=== PATIENT | female | born 1960 | race Caucasian/White ===

== ENCOUNTER → 2017-11-07 12:04 | Outpatient (CLI) | payer MEDICARE, SELFPAY ==
[2017-11-07 14:45] LABS: ALB/GLOB Ratio 0.8 RATIO (0.9-2.4); AST(SGOT) 17 U/L (15-37); Alanine Aminotransfer ALT/SGPT 25 U/L (13-56); Albumin, Serum 3.4 g/dL (3.2-5.0); Alkaline Phosphatase 152 U/L (45-117); Anion Gap 9 (5-15); BUN 17 mg/dL (7-18); BUN/Creat Ratio 27.5 RATIO (10-20); CRP 4.97 mg/L (0.0-3.0); Calcium,Total 8.8 mg/dL (8.5-10.1); Chloride 106 mmol/L (98-107); Creatinine, Serum 0.62 mg/dL (0.55-1.02); EST Glomerular Filtration Rate 105 mL/min (>60); Est Glom Filt Rate - Afr Amer 128 mL/min (>60); Globulin 4.2 g/dL (2.2-4.2); Glucose 91 mg/dL (74-106); Potassium 3.7 mmol/L (3.5-5.1); Protein, Total 7.6 g/dL (6.4-8.2); Rheumatoid Factor < 10.0 IU/mL (<15); Sodium Level 140 mmol/L (136-145)
[2017-11-07 15:40] LABS: Absolute Lymphocyte Count 1.47 X10^3/ul (0.83-4.51); Absolute Neutrophil Count 6.6 X10^3/uL (2.0-7.7); Basophil# 0.04 X10^3/uL; Basophil% 0.4 % (0-1); Eosinophil# 0.04 X10^3/uL; Eosinophils% 0.4 % (0-5); Hematocrit 41.2 % (37-47); Hemoglobin 13.2 g/dl (12.0-15.0); Lymphocyte # 1.47 X10^3/ul (4.0); Lymphocyte % 16.5 % (19-41); Mean Corpuscular Hgb 28.6 pg (27.0-32.0); Mean Corpuscular Volume 89.4 fL (81-99); Mean Platelet Vol. 10.7 fl (6.2-12.0); Monocyte# 0.71 X10^3/uL; Neutrophil # 6.64 X10^3/uL (2.7-7.7); Neutrophil % 74.5 % (47-70); Platelet Count 262 K/mm3 (150-450); RBC Distribution Width CV 14.8 % (11.6-14.6); RBC Distribution Width SD 48.1 fl (35.1-43.9); Red Blood Count 4.61 M/mm3 (4.2-5.4); White Blood Count 8.9 K/mm3 (4.4-11.0)
[2017-11-07 16:00] LABS: POSITIVE COUNT NO; POSITIVE DIFFERENTIAL NO; POSITIVE MORPHOLOGY NO
[2017-11-07 16:33] LABS: Erythrocyte Sedimentation Rate 32 mm/hr (0-30)
[2017-11-09 07:20] LABS: CCP IgG Antibodies 6 units (0-19); HEPATITIS B SURFACE AG Negative (Negative); Hep B Surface Antibodies Non Reactive (.); Hep C Antibodies 0.1 s/co ratio (0.0-0.9)
== END ==
PROVIDERS: Family Provider Nurse Practitioner Family; PCP Nurse Practitioner Family; Visit Provider Internal Medicine Rheumatology
DX: M06.09 Rheumatoid arthritis without rheumatoid factor, multiple sites (principal); M17.0 Bilateral primary osteoarthritis of knee; M21.40 Flat foot [pes planus] (acquired), unspecified foot; G90.529 Complex regional pain syndrome I of unspecified lower limb; I10 Essential (primary) hypertension; G47.33 Obstructive sleep apnea (adult) (pediatric); J45.909 Unspecified asthma, uncomplicated; M79.7 Fibromyalgia; F90.0 Attention-deficit hyperactivity disorder, predominantly inattentive type; Z79.899 Other long term (current) drug therapy
CPT/HCPCS: 36415; 80053; 85025; 85652; 86140; 86200; 86431; 86706; 86803; 87340

== ENCOUNTER → 2017-11-19 15:06 | Outpatient (CLI) | payer MEDICARE, SELFPAY ==
--- NOTE | 2017-11-19 15:11 | RAD_ITS ---
STUDY: X-RAY CHEST REASON FOR EXAM: Female, 57 years old. Preoperative evaluation. TECHNIQUE: PA and lateral views of the chest. COMPARISON: Comparison is made with prior study dated September 24, 2017. FINDINGS: The lungs are clear and expanded. There is no demonstrated pleural abnormality. Normal size heart. Normal mediastinum and jimmy. Normal visualized pulmonary arteries. There is atherosclerotic tortuosity of the aortic arch and descending thoracic aorta. There are diffuse degenerative changes of the visualized thoracic spine. A spinal stimulator device is present with the tip of the electrodes at the T8 level. Normal visualized ribs, clavicles, and shoulders. There is no demonstrated abnormality of the visualized soft tissue structures of the upper abdomen. RAD/Chest PA and Lateral IMPRESSION: No acute abnormality is seen. Electronically Signed: Sean Cotton MD at 12:31 EST Tel [phone], Service support ,
--- NOTE | 2017-11-19 15:12 | EKG12_ITS ---
Test Reason : PRE OP Blood Pressure : / mmHG Vent. Rate : 075 BPM Atrial Rate : 075 BPM P-R Int : 156 ms QRS Dur : 084 ms QT Int : 376 ms P-R-T Axes : 024 031 059 degrees QTc Int : 419 ms Normal sinus rhythm Normal ECG Confirmed by ELDER BORDEN, LOUIS ([id number]), editor school photograph DEJAH JONES ([id number]) on 11/21/2017 1:20:02 PM Referred By: OUT DOCTOR Confirmed By:LOUIS FRIEDMAN MD
[2017-11-19 17:33] LABS: Hematocrit 42.2 % (37-47); Hemoglobin 13.7 g/dl (12.0-15.0); Mean Corp Hgb Conc 32.5 g/gl (32-36); Mean Corpuscular Volume 89.2 fL (81-99); Mean Platelet Vol. 10.8 fl (6.2-12.0); Platelet Count 290 K/mm3 (150-450); RBC Distribution Width CV 15.3 % (11.6-14.6); RBC Distribution Width SD 49.5 fl (35.1-43.9); Red Blood Count 4.73 M/mm3 (4.2-5.4); White Blood Count 7.9 K/mm3 (4.4-11.0)
[2017-11-19 18:13] LABS: Scan Indicated on CBC? Y/N NO
[2017-11-19 18:14] LABS: Anion Gap 5 (5-15); BUN 12 mg/dL (7-18); Calcium,Total 8.8 mg/dL (8.5-10.1); Chloride 102 mmol/L (98-107); Creatinine, Serum 0.67 mg/dL (0.55-1.02); EST Glomerular Filtration Rate 97 mL/min (>60); Est Glom Filt Rate - Afr Amer 117 mL/min (>60); Glucose 82 mg/dL (74-106); Potassium 3.6 mmol/L (3.5-5.1); Sodium Level 135 mmol/L (136-145)
== END ==
PROVIDERS: Family Provider Nurse Practitioner Family; PCP Nurse Practitioner Family
DX: M19.071 Primary osteoarthritis, right ankle and foot (principal); M25.371 Other instability, right ankle; M67.01 Short Achilles tendon (acquired), right ankle
CPT/HCPCS: 36415; 71046; 80048; 85027; 93005

== ENCOUNTER → 2018-01-29 11:54 | Outpatient (CLI) | payer MEDICARE, SELFPAY ==
[2018-01-29 12:27] LABS: Absolute Lymphocyte Count 1.95 X10^3/ul (0.83-4.51); Absolute Neutrophil Count 3.7 X10^3/uL (2.0-7.7); Basophil# 0.05 X10^3/uL; Basophil% 0.8 % (0-1); Eosinophil# 0.19 X10^3/uL; Eosinophils% 2.9 % (0-5); Hematocrit 42.2 % (37-47); Hemoglobin 13.6 g/dl (12.0-15.0); Lymphocyte # 1.95 X10^3/ul (4.0); Lymphocyte % 29.5 % (19-41); Mean Corp Hgb Conc 32.2 g/gl (32-36); Mean Corpuscular Hgb 29.1 pg (27.0-32.0); Mean Corpuscular Volume 90.2 fL (81-99); Mean Platelet Vol. 10.6 fl (6.2-12.0); Monocyte% 10.6 % (0-10); Neutrophil # 3.68 X10^3/uL (2.7-7.7); Neutrophil % 55.6 % (47-70); Platelet Count 277 K/mm3 (150-450); RBC Distribution Width SD 45.8 fl (35.1-43.9); Red Blood Count 4.68 M/mm3 (4.2-5.4); White Blood Count 6.6 K/mm3 (4.4-11.0)
[2018-01-29 12:33] LABS: POSITIVE COUNT NO; POSITIVE DIFFERENTIAL NO; POSITIVE MORPHOLOGY NO
[2018-01-29 12:54] LABS: ALB/GLOB Ratio 0.8 RATIO (0.9-2.4); AST(SGOT) 24 U/L (15-37); Alanine Aminotransfer ALT/SGPT 26 U/L (13-56); Albumin, Serum 3.7 g/dL (3.2-5.0); Alkaline Phosphatase 163 U/L (45-117); Anion Gap 6 (5-15); BUN 16 mg/dL (7-18); BUN/Creat Ratio 20.2 RATIO (10-20); Calcium,Total 9.1 mg/dL (8.5-10.1); Chloride 103 mmol/L (98-107); Creatinine, Serum 0.79 mg/dL (0.55-1.02); EST Glomerular Filtration Rate 79 mL/min (>60); Est Glom Filt Rate - Afr Amer 96 mL/min (>60); Globulin 4.4 g/dL (2.2-4.2); Glucose 104 mg/dL (74-106); Potassium 3.6 mmol/L (3.5-5.1); Protein, Total 8.1 g/dL (6.4-8.2); Sodium Level 139 mmol/L (136-145)
== END ==
PROVIDERS: Family Provider Nurse Practitioner Family; PCP Nurse Practitioner Family; Visit Provider Internal Medicine Rheumatology
DX: M06.09 Rheumatoid arthritis without rheumatoid factor, multiple sites (principal); M17.0 Bilateral primary osteoarthritis of knee; M79.7 Fibromyalgia; Z79.899 Other long term (current) drug therapy
CPT/HCPCS: 36415; 80053; 85025

== ENCOUNTER 2018-03-16 22:45 | Emergency (ER) | payer MEDICARE, SELFPAY ==
[2018-03-16 22:47] VITALS: BP 149/81; PULSE 98; RESP 24; TEMP 37.7; O2SAT 94; BMI 53.2
--- NOTE | 2018-03-16 23:09 | CT_ITS ---
STUDY: CT BRAIN WITHOUT CONTRAST REASON FOR EXAM: Female, 57 years old. Weakness, headache, fever. RADIATION DOSAGE (If Supplied By Facility): CTDIvol = ( 44.99 ) mGy, DLP = ( 846.73 ) mGycm TECHNIQUE: Transaxial CT imaging of the brain was performed without administration of intravenous contrast material. Individualized dose optimization techniques were used for this CT. COMPARISON: March 05, 2017. FINDINGS: Normal soft tissue structures. Normal calvarium. Normal size ventricles and extra-axial spaces for the patient's age. Normal white matter tracts of the cerebral hemispheres. Normal basal ganglia and thalami. Normal brainstem. Normal cerebellum. There is no intracranial hemorrhage. There are no findings of an acute ischemic infarction. Normal visualized paranasal sinuses. CT/Brain/Head without Contrast IMPRESSION: Normal unenhanced CT scan of the brain. Electronically Signed: Sam Jang MD at 1:12 EDT , Service support ,
[2018-03-16] MEDS: 0.9% Normal Saline 1,000 ML 1000 ML IV (23:15)
[2018-03-16] MEDS: Ketorolac 30 MG/ML Syringe IV (23:15)
[2018-03-16] MEDS: Acetaminophen 500 MG Tablet 1000 MG PO (23:15)
--- NOTE | 2018-03-16 23:15 | ED.DCSUM_ITS ---
- ER Visit Summary Date of Service: 03/16/18 Chief Complaint: Headache and fever History of Present Illness: The patient is a 57 F 3 oh fibromyalgia and RSD. Patient states this morning she awoke and had a headache all day. Diffuse. And then developed a fever this evening. She denies any nausea, vomiting, diarrhea or cough. She denies any shortness of breath or abdominal pain. She denies any dysuria. She denies any head trauma or sinus congestion. She has not been recently hospitalized. Physical Examination: No aged female vital signs are stable. Currently her temperature here is 99.8. Pulse ox 94% room air no signs of hypoxia. H EENT exam unremarkable. Moist wheeze members. Neck nontender no meningismus. Able to touch chin to chest. No lymphadenopathy. Lungs clear to auscultation bilaterally. Heart regular rate and rhythm no murmur. Abdomen is obese but soft and nontender. Normal bowel sounds no peritoneal signs. She is moving all 4 extremities. The neurovascular intact. Bilateral 5 out of 5 systems analyst developer strength. Bilateral dorsi plantar flexion. Back exam nontender. Neurologically she is awake alert with no focal motor or sensory deficits. Patient skin has no rash. No petechiae or purpura. No cellulitis. No tenderness or abscesses. Her neck is nontender with full range of motion. She is absolutely no meningismus and can easily flex her chin and touch her chest. Without any difficulty or pain. Test Results: There is an elevated white count of 14.2 with a normal H&H and no bands. Electrolytes show potassium is low at 2.8 otherwise unremarkable BUN and creatinine and gap. Urinalysis was normal. Chest x-ray two-view shows no acute abnormality read by myself and the radiologist. CT of the brain again shows no acute abnormality no sinusitis or bleed or mass as read by the radiologist and reviewed by me. Emergency Department Course and Treatment: Patient progressively began feeling better in the ER after 1 L normal saline p.o. Tylenol also Toradol IV morphine for her headache. She developed no meningismal signs. Clinically Looking better I clinically did not feel she needed a spinal tap. She and I discussed that I did offer to do the procedure but she defers at this time. Clinically I do not feel this is bacterial meningitis. Treatment Plan: She is looking much better and has been walking in the hallway on repeat exam at 25 she is feeling a lot better and her headache is resolved. She is comfortable being discharged to home as is the family. Disposition: Discharge Impression: Acute fever secondary to viral syndrome with cephalgia. This note was generated with [employer] dictation software. It may contain incorrect words, spelling, and punctuation that were not noted in review of the chart prior to signing ED Disposition - Plan for ED Patient: Chief Complaint: Fever Referrals: Butch Maddox, PLASTICS PRODUCTION MACHINE OPERATOR-C [Primary Care Provider] -
[2018-03-16 23:41] LABS: Bacteria 0 SEEN /hpf (None Seen); Mucous, Urine 0 SEEN /hpf (<or=2+)
--- NOTE | 2018-03-16 23:45 | RAD_ITS ---
STUDY: X-RAY CHEST REASON FOR EXAM: Female, 57 years old. Weakness, headache, fever. TECHNIQUE: PA and lateral chest. COMPARISON: November 19, 2017. FINDINGS: The lungs are clear and expanded. There is no demonstrated pleural abnormality. Normal size heart. Normal mediastinum and jimmy. Normal visualized pulmonary arteries. Normal visualized aortic arch and descending thoracic aorta. Osseous structures unchanged. Spinal catheter overlies the mid thoracic spine. There is no demonstrated abnormality of the visualized soft tissue structures of the upper abdomen. RAD/Chest PA and Lateral IMPRESSION: No acute cardiopulmonary disease. Electronically Signed: Sam Jang MD at 1:14 EDT , Service support ,
[2018-03-16 23:57] LABS: Color, Urine Yellow (Yellow); Glucose, Dipstick Normal (Normal); Ketone-Dipstick Negative (Negative); Leukocyte Esterase-Dipstick 100 /ul (Negative); Nitrite-Dipstick Negative (Negative); Occult Blood-Urine 10 /ul (Negative); Protein-Dipstick 15 mg/dl (Negative); Urine Bilirubin Dipstick Negative (Negative); Urine Clarity Sl. Cloudy (Clear); Urine Urobilinogen Normal (Normal)
[2018-03-17 00:10] LABS: Amorphous Sediment 1+; Red Blood Cells-Urine 0-5 SEEN /hpf (0-5); Squamous Epithelial Cells - UA 0-5 SEEN /hpf (5-10); White Blood Cells 0-5 SEEN /hpf (0-5)
[2018-03-17] MEDS: Ondansetron 4 MG/2 ML Vial IV (00:34)
[2018-03-17] MEDS: Morphine 4 MG/ML Syringe IV (00:34)
[2018-03-17 00:36] VITALS: BP 127/82; PULSE 85; RESP 20; TEMP 37.7; O2SAT 94
[2018-03-17 00:38] LABS: Absolute Lymphocyte Count 1.52 X10^3/ul (0.83-4.51); Absolute Neutrophil Count 11.3 X10^3/uL (2.0-7.7); Basophil# 0.02 X10^3/uL; Basophil% 0.1 % (0-1); Eosinophil# 0.04 X10^3/uL; Eosinophils% 0.3 % (0-5); Hematocrit 36.8 % (37-47); Hemoglobin 12.2 g/dl (12.0-15.0); Lymphocyte # 1.52 X10^3/ul (4.0); Lymphocyte % 10.7 % (19-41); Mean Corp Hgb Conc 33.2 g/gl (32-36); Mean Corpuscular Hgb 28.6 pg (27.0-32.0); Mean Corpuscular Volume 86.2 fL (81-99); Mean Platelet Vol. 10.8 fl (6.2-12.0); Monocyte% 9.2 % (0-10); Neutrophil # 11.26 X10^3/uL (2.7-7.7); Neutrophil % 79.3 % (47-70); Platelet Count 207 K/mm3 (150-450); RBC Distribution Width CV 13.7 % (11.6-14.6); RBC Distribution Width SD 42.4 fl (35.1-43.9); Red Blood Count 4.27 M/mm3 (4.2-5.4); White Blood Count 14.2 K/mm3 (4.4-11.0)
[2018-03-17 00:49] LABS: POSITIVE COUNT NO; POSITIVE DIFFERENTIAL NO; POSITIVE MORPHOLOGY NO
[2018-03-17 00:51] LABS: Anion Gap 7 (5-15); BUN 21 mg/dL (7-18); BUN/Creat Ratio 21.8 RATIO (10-20); Calcium,Total 7.9 mg/dL (8.5-10.1); Chloride 99 mmol/L (98-107); Creatinine, Serum 0.96 mg/dL (0.55-1.02); EST Glomerular Filtration Rate 63 mL/min (>60); Est Glom Filt Rate - Afr Amer 76 mL/min (>60); Estimated Creatinine Clearance 62.12 ml/min; Glucose 107 mg/dL (74-106); Potassium 2.8 mmol/L (3.5-5.1); Sodium Level 134 mmol/L (136-145)
[2018-03-17] MEDS: morphine 10 MG/ML Syringe SC (01:53)
[2018-03-17 02:28] VITALS: BP 130/72; PULSE 77; RESP 18; TEMP 37.3; O2SAT 92
--- NOTE | 2018-03-17 04:30 | ED.DEP ---
ED Disposition - Plan for ED Patient: Disposition: Home or Assisted Living Chief Complaint: Fever Instructions: ED Viral Syndrome Referrals: Butch Maddox, ALTERATIONS MANAGER-C [Primary Care Provider] - 1-2 Days if not improving Additional Instructions: Fluids and rest. Tylenol and Motrin for fever and headache. Return to ER if feeling worse or becomes confused. Otherwise follow-up your primary care physician to ensure that you are improving.
[2018-03-17 04:34] VITALS: BP 136/56; PULSE 78; RESP 18; O2SAT 97
== END 2018-03-17 04:35 | disposition home or self-care (01) ==
PROVIDERS: Emergency Provider Emergency Medicine; Family Provider Nurse Practitioner Family; PCP Nurse Practitioner Family
DX: R50.9 Fever, unspecified (principal); B34.9 Viral infection, unspecified; R51 Headache; M79.7 Fibromyalgia; I10 Essential (primary) hypertension; G90.50 Complex regional pain syndrome I, unspecified; Z79.899 Other long term (current) drug therapy; Z90.710 Acquired absence of both cervix and uterus
CPT/HCPCS: 70450; 71046; 80048; 81001; 85025; 87040; 96361; 96372; 96374; 96375; 99285; A4216; J2405

== ENCOUNTER 2018-08-25 10:43 | Emergency (ER) | payer MEDICARE, SELFPAY ==
[2018-08-25 10:44] VITALS: BP 167/92; PULSE 79; RESP 18; TEMP 36.6; O2SAT 98; BMI 52.1
--- NOTE | 2018-08-25 10:56 | EKG12_ITS ---
Test Reason : SOB Blood Pressure : / mmHG Vent. Rate : 072 BPM Atrial Rate : 072 BPM P-R Int : 156 ms QRS Dur : 082 ms QT Int : 404 ms P-R-T Axes : 031 008 055 degrees QTc Int : 442 ms Suspect unspecified pacemaker failure Normal sinus rhythm Normal ECG Confirmed by RASHEL BORDEN, STEWART ([id number]), fan mail editor MARICRUZ TUCKER ([id number]) on 08/27/2018 4:19:49 PM Referred By: ZOE Confirmed By:STEWART KISER MD
[2018-08-25 11:08] LABS: Bacteria 0 SEEN /hpf (None Seen); Mucous, Urine 0 SEEN /hpf (<or=2+); Red Blood Cells-Urine 0 SEEN /hpf (0-5); White Blood Cells 0 SEEN /hpf (0-5)
[2018-08-25 11:21] VITALS: O2SAT 96
[2018-08-25 11:21] LABS: Color, Urine Yellow (Yellow); Glucose, Dipstick Normal (Normal); Ketone-Dipstick Negative (Negative); Leukocyte Esterase-Dipstick Negative /ul (Negative); Nitrite-Dipstick Negative (Negative); Occult Blood-Urine Negative /ul (Negative); Protein-Dipstick Negative (Negative); Urine Bilirubin Dipstick Negative (Negative); Urine Clarity Sl. Cloudy (Clear); Urine Urobilinogen Normal (Normal)
[2018-08-25 11:25] LABS: Absolute Lymphocyte Count 1.34 X10^3/ul (0.83-4.51); Absolute Neutrophil Count 3.5 X10^3/uL (2.0-7.7); Basophil# 0.02 X10^3/uL; Basophil% 0.4 % (0-1); Eosinophil# 0.18 X10^3/uL; Eosinophils% 3.2 % (0-5); Hematocrit 41.1 % (37-47); Hemoglobin 13.3 g/dl (12.0-15.0); Lymphocyte # 1.34 X10^3/ul (4.0); Lymphocyte % 23.8 % (19-41); Mean Corp Hgb Conc 32.4 g/gl (32-36); Mean Corpuscular Hgb 28.4 pg (27.0-32.0); Mean Corpuscular Volume 87.8 fL (81-99); Mean Platelet Vol. 10.6 fl (6.2-12.0); Monocyte# 0.59 X10^3/uL; Monocyte% 10.5 % (0-10); Neutrophil # 3.48 X10^3/uL (2.7-7.7); Neutrophil % 61.9 % (47-70); Platelet Count 248 K/mm3 (150-450); RBC Distribution Width CV 14.6 % (11.6-14.6); RBC Distribution Width SD 46.9 fl (35.1-43.9); Red Blood Count 4.68 M/mm3 (4.2-5.4); White Blood Count 5.6 K/mm3 (4.4-11.0)
--- NOTE | 2018-08-25 11:25 | RAD_ITS ---
STUDY: X-RAY CHEST REASON FOR EXAM: Female, 57 years old. Shortness of breath. TECHNIQUE: PA and lateral views of the chest. COMPARISON: 16 March 2018 FINDINGS: Midline thoracic spinal stimulator is in place. The lungs are clear and expanded. There is no demonstrated pleural abnormality. Normal size heart. Normal mediastinum and jimmy. Normal visualized pulmonary arteries. There is atherosclerotic calcification of the aortic arch with tortuosity. There are diffuse degenerative changes of the visualized thoracic spine. Normal visualized ribs, clavicles, and shoulders. There is no demonstrated abnormality of the visualized soft tissue structures of the upper abdomen. RAD/Chest PA and Lateral IMPRESSION: No evidence of acute cardiopulmonary process. Electronically Signed: Eliud Rivera DO at 11:51 EST , Service support ,
[2018-08-25 11:27] LABS: Squamous Epithelial Cells - UA 0-5 SEEN /hpf (5-10)
[2018-08-25 11:28] LABS: POSITIVE COUNT NO; POSITIVE DIFFERENTIAL NO; POSITIVE MORPHOLOGY NO
--- NOTE | 2018-08-25 11:35 | ED.VISSUMM ---
- ER Visit Summary Date of Service: 08/25/18 Chief Complaint: Shortness of breath History of Present Illness: The patient is a 57 F who presents with shortness of breath that has been getting worse over the past 2 weeks. Patient states he has had a 30 pound weight gain over the past several months. Patient states her breathing is worse with exertion. Patient admits to a cough with some brown sputum. Patient admits to some urinary frequency but denies any dysuria. Patient admits to some mild swelling in her legs. Patient denies any fevers or chills. Patient denies any upper respiratory congestion. Physical Examination: Vital signs are stable. Patient is afebrile. Patient is in no acute distress. Oral mucosa is pink and moist. Oropharynx is clear. Neck is supple. Trachea is midline. There is no JVD noted. Heart was regular rate and rhythm. Lungs were diminished bilaterally. Effort was limited. Abdomen is soft. Bowel sounds are normal. There is no tenderness noted. There is no guarding noted. Cranial nerves II through XII are intact. There are no focal motor or sensory deficits noted. Test Results: CBC and comprehensive metabolic profile were essentially within normal limits. Urinalysis was normal. Troponin was negative. EKG showed normal sinus rhythm with a rate of 72. There are no acute ST or T wave changes. PA and lateral chest x-ray was obtained. There is no acute cardiopulmonary process noted. Emergency Department Course and Treatment: Patient states she tried inhalers at home with no improvement. Patient was instructed to follow-up with her primary care physician in 5-7 days. Patient was advised that this may be just a viral upper respiratory infection. Patient understood and was agreeable with the plan. All questions were answered. Disposition: Discharged home Impression: Dyspnea This note was generated with [employer] dictation software. It may contain incorrect words, spelling, and punctuation that were not noted in review of the chart prior to signing ED Disposition - Plan for ED Patient: Disposition: Home or Assisted Living Chief Complaint: Shortness of Breath Diagnosis: Dyspnea, Morbid obesity Instructions: ED Dyspnea Shortness of Breath Referrals: Butch Maddox, CANDI-C [Primary Care Provider] -
[2018-08-25 11:46] LABS: ALB/GLOB Ratio 0.8 RATIO (0.9-2.4); AST(SGOT) 23 U/L (15-37); Alanine Aminotransfer ALT/SGPT 24 U/L (13-56); Albumin, Serum 3.4 g/dL (3.2-5.0); Alkaline Phosphatase 143 U/L (45-117); Anion Gap 5 (5-15); BUN 13 mg/dL (7-18); Calcium,Total 8.5 mg/dL (8.5-10.1); Chloride 108 mmol/L (98-107); Creatinine, Serum 0.59 mg/dL (0.55-1.02); EST Glomerular Filtration Rate 111 mL/min (>60); Est Glom Filt Rate - Afr Amer 134 mL/min (>60); Estimated Creatinine Clearance 101.07 ml/min; Globulin 4.2 g/dL (2.2-4.2); Glucose 90 mg/dL (74-106); Protein, Total 7.6 g/dL (6.4-8.2); Sodium Level 140 mmol/L (136-145)
[2018-08-25 12:11] VITALS: BP 141/88; PULSE 69; RESP 19; O2SAT 96
[2018-08-25 13:06] VITALS: BP 150/94; PULSE 82; RESP 16; O2SAT 97
== END 2018-08-25 13:07 | disposition home or self-care (01) ==
PROVIDERS: Emergency Provider Emergency Medicine; Family Provider Nurse Practitioner Family; PCP Nurse Practitioner Family
DX: R06.00 Dyspnea, unspecified (principal); E66.01 Morbid (severe) obesity due to excess calories; R35.0 Frequency of micturition; J45.909 Unspecified asthma, uncomplicated; M79.89 Other specified soft tissue disorders; Z79.899 Other long term (current) drug therapy
CPT/HCPCS: 71046; 80053; 81001; 84484; 85025; 93005; 99284

== ENCOUNTER 2018-09-05 00:20 | Emergency (ER) | payer MEDICARE, SELFPAY ==
[2018-09-05 00:23] VITALS: BP 144/95; PULSE 78; PULSE 79; RESP 24; TEMP 36.4; O2SAT 96; O2SAT 97; BMI 51.8
[2018-09-05] MEDS: HYDROmorphone 1 MG/ML Syringe SC (01:37)
--- NOTE | 2018-09-05 01:54 | ED.DCSUM_ITS ---
- ER Visit Summary Date of Service: 09/05/18 Chief Complaint: Right ankle pain History of Present Illness: The patient is a 58 F with right ankle pain. This is a chronic issue. She had prior operation to her right ankle. She has been using a pain patch and her prescribed pain medication, but her pain is more severe today. No new injuries or complaints. She is following up with her orthopedic doctor at [facility] tomorrow. She presented today for intractable pain. Physical Examination: Afebrile and vital signs unremarkable. Skin and inspection normal. Tender to palpation of the lateral malleolus. Good range of motion. Neurovascularly intact. Test Results: None indicated Emergency Department Course and Treatment: Patient treated with Dilaudid subcutaneously for breakthrough pain. No indication for diagnostic testing or imaging. Patient will be discharged to follow-up with her doctor. Treatment Plan: As above Disposition: Discharge Impression: 1. Right ankle pain This note was generated with [employer] dictation software. It may contain incorrect words, spelling, and punctuation that were not noted in review of the chart prior to signing ED Disposition - Plan for ED Patient: Chief Complaint: Lower Extremity Injury Referrals: Butch Maddox, CANDI-C [Primary Care Provider] -
--- NOTE | 2018-09-05 01:54 | ED.DEP ---
ED Disposition - Plan for ED Patient: Chief Complaint: Lower Extremity Injury Instructions: ED RICE Additional Instructions: follow up with your doctor later today as planned
[2018-09-05 01:55] VITALS: BP 146/88; PULSE 92; RESP 16; O2SAT 97
== END 2018-09-05 01:56 | disposition home or self-care (01) ==
LOC: ED 00:52
PROVIDERS: Emergency Provider Emergency Medicine; Family Provider Nurse Practitioner Family; PCP Nurse Practitioner Family
DX: M25.571 Pain in right ankle and joints of right foot (principal); E11.9 Type 2 diabetes mellitus without complications; I10 Essential (primary) hypertension; J45.909 Unspecified asthma, uncomplicated; G47.33 Obstructive sleep apnea (adult) (pediatric); G25.81 Restless legs syndrome; Z79.899 Other long term (current) drug therapy; Z87.891 Personal history of nicotine dependence
CPT/HCPCS: 96372; 99282

== ENCOUNTER 2018-11-01 02:20 | Emergency (ER) | payer MEDICARE, SELFPAY ==
[2018-11-01 02:21] VITALS: BP 155/100; PULSE 83; RESP 20; TEMP 36.8; O2SAT 97; BMI 48.0
--- NOTE | 2018-11-01 02:35 | ED.DCSUM_ITS ---
- ER Visit Summary Date of Service: 11/01/18 Chief Complaint: Right foot pain History of Present Illness: The patient is a 58 F presenting for evaluation secondary to right foot pain. Patient had surgery in [place] at [facility] by Dr. Rigo Gilliam on 07 October. She had a fusion of her ankle as well as plating in her foot. Patient reports that she has been having difficulty with healing of her lateral incision on her foot. She contacted wound center approximately a week ago, but has been unable to schedule an appointment. Patient states that over the course of the last day however she has had a eruption of severe pain swelling and redness over the medial portion of her foot. She denies constitutional symptoms such as fever. She denies any nausea or vomiting. Physical Examination: Vital signs within normal limits. Physical exam unremarkable except for lower extremity exam. Patient has a moderate amount of erythema and swelling over the medial portion of the of her foot with tenderness to palpation in that area and approximately a 6 cm area of scabbing. There is approximately a 3 cm ulcer of the patient's lateral incision on her foot. 2+ DP pulse that is bilaterally symmetric with contralateral foot. Normal sensation over all dermatomes. Test Results: CBC is normal, chemistry shows hypokalemia at 2.6. ESR is 52 CRP is 26. Ankle x-ray shows soft tissue swelling, foot x-ray shows soft tissue swelling and also shows the patient's medial talar screw just below the skin on the medial side of the patient's foot Emergency Department Course and Treatment: Patient presented secondary to increased foot pain in the setting of recent surgery. Patient's physical exam seems consistent at the very least with cellulitis over the medial foot with swelling tenderness to palpation and erythema in that area. She had hypokalemia which she states that she has a history of of in the past, she was given oral potassium replacement. Patient's ESR and CRP are mildly elevated indicative of inflammatory response. Patient's x-ray demonstrates her medial talar fixation screw just underlying the skin on the medial portion of her foot. I discussed this with the patient, she reports to me that she was told that that the screw was ultimately going to need to be removed eventually. The patient's skin infection however seems like it directly overlies this, and there is not much buffer between that infection in the head of that screw and I believe this to be high risk for progression to a hardware infection. I believe that she is most appropriately dispositioned back to [facility] where she had her initial surgery. I contacted their transfer line, and the patient will be transferred by private car. Patient is not septic, so antibiotics were deferred until the patient can be evaluated by orthopedics at [facility] to determine if they want intraoperative cultures prior to IV antibiotics. Disposition: Transfer Impression: 1. Right foot postoperative cellulitis This note was generated with [employer] dictation software. It may contain incorrect words, spelling, and punctuation that were not noted in review of the chart prior to signing ED Disposition - Plan for ED Patient: Referrals: Butch Maddox, CLINICAL OB-C [Primary Care Provider] -
--- NOTE | 2018-11-01 02:35 | RAD_ITS ---
STUDY: X-RAY - RIGHT ANKLE REASON FOR EXAM: Female, 58 years old. Post operative ankle pain TECHNIQUE: 3 view(s) of the ankle. COMPARISON: None. FINDINGS: Normal visualized distal tibia and fibula. Normal medial and lateral malleoli. Normal tibiotalar articulation and ankle mortise. There is postoperative change from arthrodesis of the subtalar joint with [address]. Medial fixation screws also noted to course partially through the anteromedial talus. Back into the screw is noted to extend into the soft tissues of the medial midfoot. Dorsal fixation plate and screws transfix the talonavicular joint. There is degenerative change of the intertarsal and tarsometatarsal joints. There is prominent medial soft tissue swelling of the midfoot surrounding the back end of the fixation screw. Mild lateral soft tissue swelling. RAD/Ankle min 3 Views IMPRESSION: Prominent medial and lateral soft tissue swelling of the midfoot and ankle. Electronically Signed: Gary Cunningham MD at 3:30 EST Tel , Service support ,
[2018-11-01] MEDS: Ondansetron 4 MG/2 ML Vial IV (02:44)
[2018-11-01] MEDS: morphine 8 MG/ML Syringe IV ×2 (02:45→03:43)
--- NOTE | 2018-11-01 02:50 | RAD_ITS ---
STUDY: X-RAY - RIGHT FOOT CLINICAL: Female, 58 years old. Post operative right ankle and foot pain TECHNIQUE: 3 view(s) of the foot. COMPARISON: None. FINDINGS: There is postoperative change from subtalar arthrodesis with 2 fixation screws coursing through the posterior subtalar joint. A single medial fixation screw courses partially through the anteromedial aspect of the talus with an approximate 1.8 cm of the fixation screw extending into the medial soft tissues of the midfoot. Dorsal medial fixation plate and screws transfix the talonavicular joint. There is heterotopic ossification throughout the soft tissues of the medial aspect of the midfoot and hindfoot. There is mild degenerative change of the intertarsal and tarsometatarsal joints. Normal metatarsi. Mild degenerative change of the first metatarsophalangeal joint. Normal tibial and fibular sesamoid bones. Normal interphalangeal joint of the great toe. Normal phalanges of the great toe. Normal second through fifth metatarsophalangeal joints. Normal interphalangeal joints and phalanges of the lesser toes. RAD/Foot min 3 Views IMPRESSION: 1. Postoperative change from subtalar joint and talonavicular joint arthrodesis with a medial fixation screw coursing partially through the anteromedial aspect of the talus, with the back end of the screw extending into the soft tissues of the medial midfoot. 2. 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 Electronically Signed: Gary Cunningham MD at 3:13 EST Tel , Service support ,
[2018-11-01 02:58] VITALS: BP 163/106; PULSE 80; RESP 16; TEMP 36.8; O2SAT 94
[2018-11-01 03:00] LABS: Hematocrit 41.2 % (37-47); Mean Corpuscular Hgb 28.5 pg (27.0-32.0); Mean Corpuscular Volume 83.9 fL (81-99); Mean Platelet Vol. 11.1 fl (6.2-12.0); Platelet Count 289 K/mm3 (150-450); RBC Distribution Width CV 13.9 % (11.6-14.6); RBC Distribution Width SD 42.3 fl (35.1-43.9); Red Blood Count 4.91 M/mm3 (4.2-5.4); White Blood Count 8.8 K/mm3 (4.4-11.0)
[2018-11-01 03:04] LABS: Erythrocyte Sedimentation Rate 52 mm/hr (0-30); Scan Indicated on CBC? Y/N NO
[2018-11-01 03:19] LABS: Anion Gap 12 (5-15); BUN 13 mg/dL (7-18); Calcium,Total 8.8 mg/dL (8.5-10.1); Chloride 97 mmol/L (98-107); Creatinine, Serum 0.72 mg/dL (0.55-1.02); EST Glomerular Filtration Rate 88 mL/min (>60); Est Glom Filt Rate - Afr Amer 106 mL/min (>60); Estimated Creatinine Clearance 81.81 ml/min; Glucose 102 mg/dL (74-106); Potassium 2.6 mmol/L (3.5-5.1); Sodium Level 136 mmol/L (136-145)
--- NOTE | 2018-11-01 03:19 | ED.RN ---
dr beach aware of k+2.6.
[2018-11-01 03:48] VITALS: BP 163/108; PULSE 80; RESP 20; TEMP 36.9; O2SAT 95
[2018-11-01 04:13] LABS: Lactic Acid 1.6 mmol/L (0.4-2.0)
[2018-11-01 04:14] VITALS: BP 164/103; PULSE 79; RESP 16; TEMP 36.9; O2SAT 95
[2018-11-01 04:50] VITALS: BP 163/108; PULSE 80; RESP 20; TEMP 36.9; O2SAT 94
== END 2018-11-01 04:53 | disposition home or self-care (01) ==
LOC: ED 02:54
PROVIDERS: Emergency Provider Emergency Medicine; Family Provider Nurse Practitioner Family; PCP Nurse Practitioner Family
DX: T81.40XA Infection following a procedure, unspecified, initial encounter (principal); L03.115 Cellulitis of right lower limb; E87.6 Hypokalemia; G90.50 Complex regional pain syndrome I, unspecified; G25.81 Restless legs syndrome; M79.7 Fibromyalgia; F41.9 Anxiety disorder, unspecified; E66.9 Obesity, unspecified; Z79.899 Other long term (current) drug therapy
CPT/HCPCS: 73610; 73630; 80048; 83605; 85027; 85652; 86140; 87040; 96374; 96375; 96376; 99285; A4216; J2405

== ENCOUNTER 2019-03-29 13:08 | Emergency (ER) | payer MEDICARE, SELFPAY ==
[2019-03-29 13:10] VITALS: BP 156/89; PULSE 86; RESP 16; TEMP 36.9; O2SAT 96
[2019-03-29 13:11] VITALS: BP 156/89; PULSE 84; RESP 14; TEMP 36.6; O2SAT 98; BMI 51.7
[2019-03-29 13:56] VITALS: BP 145/78; PULSE 80; RESP 14; O2SAT 98
[2019-03-29] MEDS: oxyCODONE 5 MG Tablet 10 MG PO (14:48)
--- NOTE | 2019-03-29 15:24 | ED.DCSUM_ITS ---
- ER Visit Summary Date of Service: 03/29/19 Chief Complaint: [Postop bleeding] History of Present Illness: The patient is a 58 F [presents to the emergency department with complaint of postop bleeding that started this morning. Patient states that she has had recent multiple surgeries to her right foot and apparently at one point had an infection 1 of the bones of her foot that had to be removed. Patient sees a Dr. Ramsey at [facility]. Patient's last surgery was about 3 weeks ago. Patient today noted that there was blood on her foot and she became very concerned and presents via EMS for evaluation. Patient denies any trauma to the foot. Patient is currently not ambulatory on the foot . She denies any fever or recent illness.] Physical Examination: [Right foot-there is a large incision on the medial/dorsal portion of the foot measuring approximately 7.5 cm in length. Sutures are still in place. The central portion of the incision is slightly open however there is no active bleeding. Patient has some mild soft tissue swelling diffusely about the foot. She is neurovascular intact.] Test Results: [None indicated] Emergency Department Course and Treatment: [Patient had a compression dressing applied to the foot. I attempted to contact her surgeon of record however after waiting for over an hour patient does not want to wait any longer in the department and would prefer to go home and return if symptoms worsen. Patient advised to return if persistent or heavy bleeding. Is possible she may have had a seroma that drained. At this time there is no active bleeding and feel patient is safe to discharge home.] Treatment Plan: [Follow-up with surgeon within the next 2 to 3 days.] Disposition: [Discharged home in stable condition] Impression: [Postop bleeding-resolved] This note was generated with [employer] dictation software. It may contain incorrect words, spelling, and punctuation that were not noted in review of the chart prior to signing ED Disposition - Plan for ED Patient: Referrals: Butch Maddox, CANDI-C [Primary Care Provider] -
--- NOTE | 2019-03-29 15:28 | DCINST.ED_ITS ---
ED Disposition - Plan for ED Patient: Instructions: POST OP WOUND CHECK, Bleeding Referrals: Butch Maddox, BEAUTY CULTURIST APPRENTICE-C [Primary Care Provider] - Additional Instructions: see your surgeon in 2-3 days
--- NOTE | 2019-03-29 15:28 | ED.DEP ---
ED Disposition - Plan for ED Patient: Instructions: POST OP WOUND CHECK, Bleeding Referrals: Butch Maddox, DIRECTOR OF INSTRUCTION-C [Primary Care Provider] - Additional Instructions: see your surgeon in 2-3 days
[2019-03-29 15:39] VITALS: BP 149/70; PULSE 80; RESP 14; O2SAT 98
== END 2019-03-29 15:48 | disposition home or self-care (01) ==
PROVIDERS: Emergency Provider Emergency Medicine; Family Provider Nurse Practitioner Family; PCP Nurse Practitioner Family
DX: L76.22 Postprocedural hemorrhage of skin and subcutaneous tissue following other procedure (principal); I10 Essential (primary) hypertension; M79.7 Fibromyalgia; J45.909 Unspecified asthma, uncomplicated; Z79.899 Other long term (current) drug therapy
CPT/HCPCS: 99283

== ENCOUNTER → 2019-06-25 13:39 | Outpatient (CLI) | payer MEDICARE, SELFPAY ==
[2019-06-25 14:50] LABS: Amphetamine Urine VISTA NEGATIVE (<1000 ng/mL); Barbiturate Urine VISTA NEGATIVE (< 200 ng/mL); Benzodiazepine Urine VISTA NEGATIVE (< 200 ng/mL); Cocaine Urine VISTA NEGATIVE (< 300 ng/mL); Ecstacy Urine VISTA NEGATIVE (< 500 ng/mL); Methadone Urine VISTA NEGATIVE (< 300 ng/mL); PCP Urine VISTA NEGATIVE (< 25 ng/mL); THC Urine VISTA NEGATIVE (< 50 ng/mL); Vista UDS pH Range 6
== END ==
PROVIDERS: Family Provider Nurse Practitioner Family; PCP Nurse Practitioner Family; Referring Provider Anesthesiology Pain Medicine; Visit Provider Anesthesiology Pain Medicine
DX: F11.20 Opioid dependence, uncomplicated (principal)
CPT/HCPCS: 80307

== ENCOUNTER 2019-09-20 12:31 | Observation (INO) | payer MEDICARE, SELFPAY ==
[2019-09-20] VITALS (12 sets, daily range): BP systolic 126–185; BP diastolic 67–89; PULSE 80–106; RESP 16–28; TEMP 36.7–37.1; O2SAT 93–96; BMI 49.9; BMI 50.4; BMI 50.5
--- NOTE | 2019-09-20 13:01 | RAD_ITS ---
STUDY: X-RAY CHEST REASON FOR EXAM: Female, 59 years old. Cough and shortness of breath. TECHNIQUE: PA and lateral views of the chest. COMPARISON: 08/25/2018. FINDINGS: The lungs are clear and expanded. There is no demonstrated pleural abnormality. Normal size heart. Normal mediastinum and jimmy. Normal visualized pulmonary arteries. There is atherosclerotic tortuosity of the aortic arch and descending thoracic aorta. There is a dextroscoliosis of the thoracic spine. Pain management device is seen overlying the thoracic spine. Normal visualized ribs, clavicles, and shoulders. There is no demonstrated abnormality of the visualized soft tissue structures of the upper abdomen. RAD/Chest PA and Lateral IMPRESSION: No active pulmonary disease. Electronically Signed: Dashawn Ly MD at 14:16 EST Tel , Service support ,
[2019-09-20] MEDS: Ipratropium/Albuterol Sulfate 3 ML AMPUL.NEB INHALATION ×3 (13:20→22:46)
[2019-09-20] MEDS: MethylPREDNISolone 125 MG/2 ML Vial 60 MG IV (13:25)
[2019-09-20 13:30] LABS: Absolute Lymphocyte Count 1.38 X10^3/uL (0.83-4.51); Absolute Neutrophil Count 4.2 X10^3/uL (2.0-7.7); Basophil# 0.05 X10^3/uL; Basophil% 0.7 % (0-1); Eosinophil# 0.34 X10^3/uL; Hematocrit 36.6 % (37-47); Hemoglobin 11.6 g/dL (12.0-15.0); Lymphocyte # 1.38 X10^3/ul (4.0); Lymphocyte % 20.1 % (19-41); Mean Corp Hgb Conc 31.7 g/dL (32-36); Mean Corpuscular Hgb 25.4 pg (27.0-32.0); Mean Corpuscular Volume 80.3 fL (81-99); Mean Platelet Vol. 10.4 fl (6.2-12.0); Monocyte# 0.89 X10^3/uL; NRBC Flagged by Analyzer 0 % (0-5); Neutrophil # 4.18 X10^3/uL (2.7-7.7); Neutrophil % 60.9 % (47-70); Platelet Count 256 K/mm3 (150-450); RBC Distribution Width CV 17.6 % (11.6-14.6); Red Blood Count 4.56 M/mm3 (4.2-5.4); White Blood Count 6.9 K/mm3 (4.4-11.0)
[2019-09-20 13:51] LABS: Anion Gap 4 (5-15); BUN 16 mg/dL (7-18); BUN/Creat Ratio 21.2 RATIO (10-20); Calcium,Total 8.7 mg/dL (8.5-10.1); Chloride 110 mmol/L (98-107); Creatinine, Serum 0.76 mg/dL (0.55-1.02); EST Glomerular Filtration Rate 83 mL/min (>60); Est Glom Filt Rate - Afr Amer 101 mL/min (>60); Estimated Creatinine Clearance 76.55 ml/min; Glucose 105 mg/dL (74-106); Sodium Level 141 mmol/L (136-145)
--- NOTE | 2019-09-20 14:27 | ED.DCSUM_ITS ---
- ER Visit Summary Date of Service: 09/20/19 Chief Complaint: Shortness of breath History of Present Illness: The patient is a 59 F who presents with shortness of breath and wheezing that has been getting worse over the past 2 weeks. Patient states she took 2 nebulizer treatments prior to arrival with no improvement. Patient states she has a history of asthma and this feels similar to prior asthma exacerbations. Patient states that in the past she has required IV steroids which have helped. Patient states she completed a course of Zithromax and prednisone with minimal improvement. Patient states she is coughing up yellow-green sputum. Patient admits to subjective fever last night. Patient states her breathing is worse with any exertion or coughing. Physical Examination: Vital signs are stable except for an elevated blood pressure 185/89. Patient is afebrile. Patient is in no acute distress. Oral mucosa is pink and moist. Neck is supple. Trachea is midline. There is no JVD. Heart was regular rate and rhythm. Lungs showed diffuse expiratory wheezing. There is good respiratory effort. There are no retractions noted. Abdomen is soft. Bowel sounds are normal. There is no tenderness. Cranial nerves II through XII are intact. There are no focal motor or sensory deficits noted. There is no calf tenderness or edema of the left lower extremity. There is a prosthesis in the right lower leg. Test Results: CBC and basic metabolic profile were essentially within normal limits. PA and lateral chest x-ray was obtained. There is no acute cardiopulmonary process. This was interpreted by the radiologist and myself. Emergency Department Course and Treatment: Patient was given a DuoNeb aerosol here. Patient was given Solu-Medrol IV. Patient still had wheezing on reevaluation. Patient was given a repeat albuterol aerosol. Patient got up to walk to the bathroom after the aerosol and showed. Albuterol aerosol. Case was discussed with the hospitalist. He will admit the patient for observation. Patient is agreeable to admission for observation. Disposition: Admit for observation Impression: 1. Acute exacerbation of asthma This note was generated with [facility] dictation software. It may contain incorrect words, spelling, and punctuation that were not noted in review of the chart prior to signing ED Disposition - Plan for ED Patient: Disposition: Acute Care Hospital [facility] Diagnosis: Asthma exacerbation Referrals: Butch Maddox NP-C [Primary Care Provider] -
[2019-09-20] MEDS: Albuterol 2.5 MG/3 ML VIAL.NEB. INHALATION ×2 (14:37→15:46)
--- NOTE | 2019-09-20 15:58 | PCM.HP.STD ---
<Ann Marie Mcfarland - Last Filed: 09/20/19 16:13> Problem List (1) Bronchospasm Status: Acute (2) Anxiety Status: Chronic (3) Asthma Status: Chronic (4) Benign essential HTN Status: Chronic (5) Reflex sympathetic dystrophy Status: Chronic (6) Fibromyalgia Status: Chronic (7) Morbid obesity Status: Chronic (8) Obstructive sleep apnea Status: Chronic (9) Restless leg syndrome Status: Chronic (10) Family history of diabetes mellitus (DM) Status: Chronic (11) Asthma exacerbation Status: Acute History of Present Illness Date of Admission: 09/20/19 Chief Complaint: Shortness of breath, cough. The patient is a 59 year old F who reports to the emergency room due to shortness of breath and cough. Patient reports this is been ongoing for approximately 4 to 6 weeks and has worsened recently. She reports she has been on prednisone taper, Z-João as outpatient without improvement of symptoms. She reports intermittent productive cough with yellow, green sputum. Denies fever, chills. Denies nausea, vomiting. Denies recent weight gain or swelling. She reports significant persistent cough which has made her chest sore. Patient has been using her home nebulizer for breathing treatments frequently without improvement. 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 She has a past medical history of asthma, hypertension, anxiety, depression, fibromyalgia, restless leg syndrome, reflex sympathetic dystrophy, morbid obesity. Past Medical History Past Medical History (Chronic Problems): Chronic Problems Anxiety (Chronic) Asthma (Chronic) Benign essential HTN (Chronic) Reflex sympathetic dystrophy (Chronic) Fibromyalgia (Chronic) Morbid obesity (Chronic) Obstructive sleep apnea (Chronic) Restless leg syndrome (Chronic) Family history of diabetes mellitus (DM) (Chronic) Allergies amlodipine Adverse Reaction (Verified 11/01/18 02:25) Swelling Home Medications: Ambulatory Orders Medication Instructions Recorded Meloxicam 7.5 mg PO BID 01/16/14 Montelukast [Singulair] 10 mg PO DAILY 01/16/14 cycloBENZAPRine HCl [Flexeril] 10 mg PO QHS 06/06/14 Omeprazole [Prilosec] 40 mg PO DAILY 07/12/15 Nebulizer [Lc Plus] 1 each INHALATION Q4H PRN PRN 11/18/15 Gabapentin [Neurontin] 900 mg PO BREAKFAST 01/13/17 Furosemide [Lasix] 40 mg PO BID PRN 06/13/17 Citalopram [Celexa] 40 mg PO DAILY 08/25/18 Potassium Chloride [K-Dur] 40 meq PO DAILY 11/01/18 Gabapentin 600 mg PO QHS 09/20/19 Oxycodone HCl/Acetaminophen 1 tab PO QHS PRN PRN 09/20/19 [Percocet 5/325] Surgical History: - - Breast reduction surgery. Bladder sling, bilateral foot surgeries. 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 Sibling History Items: - - Denies significant sibling history including cardiac history. Review of Systems Constitutional: Reports: Malaise. Denies: Chills, Fever HEENT: Reports: Sinus Congestion. Denies: Head Aches, Sinus Drainage, Sore Throat Cardiovascular: Denies: Chest Pain, Edema, Light Headedness, Palpitations, Syncope Respiratory: Reports: Cough, Shortness of Breath, Sputum production, Wheezing Gastrointestinal: Denies: Abdominal Pain, Nausea, Vomiting Genitourinary: Denies: Dysuria Musculoskeletal: Denies: Joint Pain, Joint Tenderness Skin: Denies: Rash, Wounds Neurological: Denies: Numbness, Tingling, Focal weakness Psychiatric: Reports: Anxiety, Depression. Denies: Homicidal Ideations, Suicidal Ideations Hematologic/ Lymphatic: Denies: Easy Bruising, Easy Bleeding VTE Information - Inpt Only VTE Present on Admission: No VTE Mechan Device Prophylaxis: None VTE Pharm Prophylaxis ordered?: Yes Patient Problems: Active and Suspected Problems Asthma exacerbation (Acute) - Physical Exam Vitals/I&O's: Vital Signs Temp Pulse Resp BP Pulse Ox 98.2 F 86 20 H 185/89 H 96 09/20/19 12:33 09/20/19 15:46 09/20/19 15:46 09/20/19 12:33 09/20/19 12:33 Oxygen Delivery Method Room Air Weight: 319 lb Body Mass Index (BMI) 49.9 General: Alert, Oriented x3, Cooperative HEENT: Atraumatic, PERRLA, EOMI, Normocephalic Oral: Dry Mucosa Neck: Supple, No JVD, Negative Carotid Bruits Lungs: Diminished, Wheezes Cardiovascular: Regular rate, Regular Rhythm, Normal S1, Normal S2, No murmurs Abdomen: Bowel Sounds Present, Soft, Non Tender, Non-Distended, Obese Extremities: No clubbing, No cyanosis, No edema, Capillary Refill Less than 3 Seconds Skin: No rashes, No breakdown Musculoskeletal: No Tenderness to Palpation of Joints or Extremities Neurological: Cranial nerves II-XII grossly intact, Neuro grossly intact Psych/Mental Status: Normal Affect, Appropriate Microbiology Past 72 Hours 09/20/19 13:15 Mucosa - Nasopharyngeal Influenza Types A,B Direct FA (MCKAYLA) - Final Laboratory Results 09/20/19 13:20: WBC 6.9, RBC 4.56, Hgb 11.6 L, Hct 36.6 L, MCV 80.3 L, MCH 25.4 L, MCHC 31.7 L, RDW Std Deviation 51.0 H, RDW Coeff of Naga 17.6 H, Plt Count 256, MPV 10.4, Immature Gran % (Auto) 0.300, Neut % (Auto) 60.9, Lymph % (Auto) 20.1, Pacific % (Auto) 13.0 H, Eos % (Auto) 5.0, Baso % (Auto) 0.7, Absolute Neuts (auto) 4.2, Absolute Lymphs (auto) 1.38, Nucleated RBC % 0 09/20/19 13:20: Sodium 141, Potassium 4.0, Chloride 110 H, Carbon Dioxide 27.0, Anion Gap 4 L, BUN 16, Creatinine 0.76, Estim Creat Clear Calc 76.55, Est GFR (MDRD) Af Amer 101, Est GFR (MDRD) Non-Af 83, BUN/Creatinine Ratio 21.2 H, Glucose 105, Calcium 8.7 Assessment/Plan All Active Problems Bronchospasm (Acute) Asthma exacerbation (Acute) 1. Acute exacerbation of asthma with bronchospasm-negative for influenza. Chest x-ray without acute process. Albuterol and DuoNeb aerosols. Check respiratory panel. IV Solu-Medrol. PRN cough suppressant. Oxygen stable on room air. Recommended establishing with pulmonary medicine of [facility] at discharge. 2. FAY-continue home BiPAP regimen. 3. Hypertension-elevated on admission, suspect secondary to #1. Not on regimen. As needed hydralazine for systolic blood pressure greater than 160. 4. Anxiety/Depression-continue Celexa regimen. 5. Fibromyalgia/Restless leg syndrome-continue home Mirapex, PRN pain regimen. 6. Reflex sympathetic dystrophy-continue Flexeril, gabapentin. 7. Morbid obesity-encouraged diet and lifestyle modifications. DVT prophylaxis-Lovenox subcu This patient was seen by GINO Coyne under the supervision of Dr. Campoverde. <Laron Campoverde - Last Filed: 09/20/19 18:21> History of Present Illness The patient is a 59 year old F with history of asthma came to ER with shortness of breath on and off for last 2 to 3 months. Patient had 2-3 rounds of prednisone and Z-João without much improvement. Patient complain of wheezing, cough with yellowish-greenish sputum and shortness of breath. In ED, patient shortness of breath does not improve even after bronchodilator and Solu-Medrol therefore was admitted. Pulse ox 95% on room air. Tachypneic respiratory rate 22. 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 Clinical Impression(s) from Imaging Studies Chest X-Ray 09/20/19 13:01 IMPRESSION: No active pulmonary disease. [] Past Medical History Allergies amlodipine Adverse Reaction (Verified 09/20/19 17:06) Swelling Review of Systems Constitutional: Reports: Chills, Malaise. Denies: Fever HEENT: Reports: Post Nasal Drip, Sinus Congestion, Sinus Drainage - Physical Exam Vitals/I&O's: Vital Signs Temp Pulse Resp BP Pulse Ox 98.8 F 91 18 147/81 H 95 09/20/19 17:51 09/20/19 17:51 09/20/19 17:51 09/20/19 17:51 09/20/19 17:51 Oxygen Delivery Method Room Air Weight: 322 lb 2 oz Body Mass Index (BMI) 50.4 General: Alert, Oriented x3, Cooperative HEENT: Atraumatic, PERRLA, EOMI, Normocephalic Neck: Supple, No JVD, Negative Carotid Bruits Lungs: Diminished - Air entry is severely diminished in all lung enrique., Short of Breath, Tachypneic, Wheezes Cardiovascular: Regular rate, No murmurs Abdomen: Bowel Sounds Present, Soft, Non Tender, Non-Distended, No Hepato-splenomegaly, Obese Extremities: No edema, Capillary Refill Less than 3 Seconds Skin: No rashes, No breakdown Musculoskeletal: No Tenderness to Palpation of Joints or Extremities, Arthritic Changes, - - Right below-knee amputation Neurological: Cranial nerves II-XII grossly intact, Deep Tendon Reflexes 2+/4 and Symmetrical, Neuro grossly intact Psych/Mental Status: Normal Affect, Appropriate Microbiology Past 72 Hours 09/20/19 13:15 Mucosa - Nasopharyngeal Influenza Types A,B Direct FA (MCKAYLA) - Final Laboratory Results 09/20/19 13:20: WBC 6.9, RBC 4.56, Hgb 11.6 L, Hct 36.6 L, MCV 80.3 L, MCH 25.4 L, MCHC 31.7 L, RDW Std Deviation 51.0 H, RDW Coeff of Naga 17.6 H, Plt Count 256, MPV 10.4, Immature Gran % (Auto) 0.300, Neut % (Auto) 60.9, Lymph % (Auto) 20.1, Pacific % (Auto) 13.0 H, Eos % (Auto) 5.0, Baso % (Auto) 0.7, Absolute Neuts (auto) 4.2, Absolute Lymphs (auto) 1.38, Nucleated RBC % 0 09/20/19 13:20: Sodium 141, Potassium 4.0, Chloride 110 H, Carbon Dioxide 27.0, Anion Gap 4 L, BUN 16, Creatinine 0.76, Estim Creat Clear Calc 76.55, Est GFR (MDRD) Af Amer 101, Est GFR (MDRD) Non-Af 83, BUN/Creatinine Ratio 21.2 H, Glucose 105, Calcium 8.7 Current Medications Acetaminophen (Tylenol) 650 mg PO Q6H PRN PRN PRN Reason: Pain Score 1-3 /Temp>100.7 Albuterol Sulfate (Ventolin Aerosols) 2.5 mg INHALATION Q2H PRN PRN PRN Reason: SHORTNESS OF BREATH Albuterol/Ipratropium (Duoneb) 3 ml INHALATION Q4H.RT JIL Citalopram Hydrobromide (Celexa) 40 mg PO DAILY JIL Cyclobenzaprine HCl (Flexeril) 10 mg PO QHS [facility] Enoxaparin Sodium (Lovenox) 40 mg SC DAILY JIL Gabapentin (Neurontin) 600 mg PO QHS JIL Gabapentin (Neurontin) 900 mg PO BREAKFAST JIL Guaifenesin (Robitussin Dm) 10 ml PO Q6H PRN PRN PRN Reason: COUGH Sodium Chloride () 250 mls @ 15 mls/hr IV .[id number] PRN PRN Reason: Saline Flush Sodium Chloride () 250 mls @ 15 mls/hr IV .[id number] PRN PRN Reason: Additional IVPB Infusion Influenza Virus Vaccine Quadrival (Flucelvax /Fluzone ) 0.5 ml IM .ONCE ONE Stop: 09/21/19 10:01 Meloxicam (Mobic) 7.5 mg PO BID [facility] Methylprednisolone (Solu-Medrol) 40 mg IV Q8 JIL Montelukast Sodium (Singulair) 10 mg PO DAILY [facility] Ondansetron HCl (Zofran) 4 mg IV Q8H PRN PRN PRN Reason: Nausea Oxycodone HCl (Oxyir) 5 mg PO Q4H PRN PRN PRN Reason: Pain Score 4-10/10 Pantoprazole Sodium (Protonix) 40 mg PO DAILY [facility] Pramipexole Dihydrochloride (Mirapex) 1.5 mg PO BID [facility] Sodium Chloride () 10 - 40 ml IV UD PRN PRN Reason: SALINE FLUSH Assessment/Plan This patient was seen in conjunction with INVESTIGATOR UTILITY BILL COMPLAINTSAnn Marie. I have independently interviewed and examined the patient and reviewed pertinent history, examination findings, laboratory and plan of management. I have reviewed the note and agree with the documented findings with the few additional points. In brief, patient is 59-year-old female with history of asthma and obstructive sleep apnea on home BiPAP was admitted with intermittent shortness of breath and wheezing for 2 to 3 months even on repeated tapering dose of prednisone and Zithromax. Respiratory panel ordered. Bronchodilator, IV Solu-Medrol, BiPAP at night on home setting. Incentive spirometry and bronchopulmonary hygiene Other comorbidities hypertension, anxiety depression, reflex sympathetic dystrophy/fibromyalgia and restless leg syndrome with morbid obesity and recent right below-knee amputation as mentioned above. I have discussed my assessment with INVESTIGATOR UTILITY BILL COMPLAINTSAnn Marie and orders have been reviewed. Code Visit Inpatient E&M: 88503 Init Hosp L3
--- NOTE | 2019-09-20 20:16 | CPS ---
Pt. brought in her home BiPAP
[2019-09-20] MEDS: Pramipexole Di-HCl 0.5 MG Tablet 1.5 MG PO (21:51)
[2019-09-20] MEDS: Meloxicam 7.5 MG Tablet PO (21:52)
[2019-09-20] MEDS: Gabapentin 600 MG Tablet PO (21:52)
[2019-09-20] MEDS: cycloBENZAPRine HCl 10 MG Tablet PO (21:53)
[2019-09-20] MEDS: guaiFENesin Dm 10 ML UDC PO (21:59)
[2019-09-20] MEDS: 0.9% Saline Lock 10 ML Syringe IV (21:59)
[2019-09-20] MEDS: oxyCODONE 5 MG Tablet PO (21:59)
[2019-09-21] VITALS (10 sets, daily range): BP systolic 126–159; BP diastolic 67–96; PULSE 81–94; RESP 16–20; TEMP 36.7–37; O2SAT 95–96
[2019-09-21] MEDS: Acetaminophen 325 MG Tablet 650 MG PO ×2 (01:30→08:36)
[2019-09-21] MEDS: Albuterol 2.5 MG/3 ML VIAL.NEB. INHALATION (04:50)
[2019-09-21 06:40] LABS: Absolute Lymphocyte Count 0.94 X10^3/uL (0.83-4.51); Absolute Neutrophil Count 7.8 X10^3/uL (2.0-7.7); Basophil# 0.01 X10^3/uL; Basophil% 0.1 % (0-1); Hematocrit 37.8 % (37-47); Hemoglobin 11.7 g/dL (12.0-15.0); Lymphocyte # 0.94 X10^3/ul (4.0); Lymphocyte % 10.3 % (19-41); Mean Corpuscular Hgb 25.3 pg (27.0-32.0); Mean Corpuscular Volume 81.6 fL (81-99); Mean Platelet Vol. 11.1 fl (6.2-12.0); Monocyte# 0.32 X10^3/uL; Monocyte% 3.5 % (0-10); NRBC Flagged by Analyzer 0 % (0-5); Neutrophil # 7.75 X10^3/uL (2.7-7.7); Neutrophil % 85.2 % (47-70); Platelet Count 264 K/mm3 (150-450); RBC Distribution Width CV 18.6 % (11.6-14.6); RBC Distribution Width SD 53.4 fl (35.1-43.9); Red Blood Count 4.63 M/mm3 (4.2-5.4); White Blood Count 9.1 K/mm3 (4.4-11.0)
[2019-09-21] MEDS: Ipratropium/Albuterol Sulfate 3 ML AMPUL.NEB INHALATION ×4 (06:57→19:54)
[2019-09-21] MEDS: Montelukast 10 MG Tablet PO (08:16)
[2019-09-21] MEDS: Meloxicam 7.5 MG Tablet PO ×2 (08:16→21:56)
[2019-09-21] MEDS: Pantoprazole Sodium 40 MG Tablet PO (08:16)
[2019-09-21] MEDS: Gabapentin 300 MG Capsule 900 MG PO (08:16)
[2019-09-21] MEDS: Citalopram 40 MG TABLET PO (08:16)
[2019-09-21] MEDS: Enoxaparin 40 MG/0.4 ML Syringe SC (08:17)
[2019-09-21] MEDS: guaiFENesin Dm 10 ML UDC PO ×2 (08:22→16:43)
--- NOTE | 2019-09-21 12:09 | PN_ITS ---
<Ann Marie Mcfarland - Last Filed: 09/21/19 12:11> Patient Problems: Active and Suspected Problems Asthma exacerbation (Acute) Subjective: Patient seen and examined. Reports improvement in breathing. Cough improved. Denies fever, chills. - Physical Exam Vitals/I&O's: Vital Signs Temp Pulse Resp BP Pulse Ox 98.6 F 85 20 H 159/96 H 95 09/21/19 08:30 09/21/19 10:54 09/21/19 10:54 09/21/19 08:30 09/21/19 08:30 Oxygen Delivery Method Room Air Weight: 322 lb 2 oz Body Mass Index (BMI) 50.4 Intake and Output for Last 24 Hours 09/19/19 09/20/19 09/21/19 23:59 23:59 23:59 Intake Total 350 / 350 480 / 480 Balance 350 / 350 480 / 480 General: Alert, Oriented x3, Cooperative HEENT: Atraumatic, PERRLA, EOMI, Normocephalic Neck: Supple, No JVD, Negative Carotid Bruits Lungs: Clear to auscultation, Diminished Cardiovascular: Regular rate, Regular Rhythm, Normal S1, Normal S2, No murmurs Abdomen: Bowel Sounds Present, Soft, Non Tender, Non-Distended, Obese Extremities: No clubbing, No cyanosis, No edema, Capillary Refill Less than 3 Seconds Skin: No rashes, No breakdown Musculoskeletal: No Tenderness to Palpation of Joints or Extremities Neurological: Cranial nerves II-XII grossly intact, Neuro grossly intact Psych/Mental Status: Normal Affect, Appropriate Microbiology Past 72 Hours 09/20/19 20:00 Mucosa - Nasopharyngeal Respiratory Panel (PCR) - Final RSV A 09/21/19 00:15 Sputum, Expectorated/Coughed Gram Stain - Preliminary 09/20/19 13:15 Mucosa - Nasopharyngeal Influenza Types A,B Direct FA (MCKAYLA) - Final Laboratory Results 09/20/19 13:20: WBC 6.9, RBC 4.56, Hgb 11.6 L, Hct 36.6 L, MCV 80.3 L, MCH 25.4 L, MCHC 31.7 L, RDW Std Deviation 51.0 H, RDW Coeff of Naga 17.6 H, Plt Count 256, MPV 10.4, Immature Gran % (Auto) 0.300, Neut % (Auto) 60.9, Lymph % (Auto) 20.1, Iron % (Auto) 13.0 H, Eos % (Auto) 5.0, Baso % (Auto) 0.7, Absolute Neuts (auto) 4.2, Absolute Lymphs (auto) 1.38, Nucleated RBC % 0 09/20/19 13:20: Sodium 141, Potassium 4.0, Chloride 110 H, Carbon Dioxide 27.0, Anion Gap 4 L, BUN 16, Creatinine 0.76, Estim Creat Clear Calc 76.55, Est GFR (MDRD) Af Amer 101, Est GFR (MDRD) Non-Af 83, BUN/Creatinine Ratio 21.2 H, Glucose 105, Calcium 8.7 09/21/19 05:58: WBC 9.1, RBC 4.63, Hgb 11.7 L, Hct 37.8, MCV 81.6, MCH 25.3 L, MCHC 31.0 L, RDW Std Deviation 53.4 H, RDW Coeff of Naga 18.6 H, Plt Count 264, MPV 11.1, Immature Gran % (Auto) 0.900, Neut % (Auto) 85.2 H, Lymph % (Auto) 10.3 L, Iron % (Auto) 3.5, Eos % (Auto) 0.0, Baso % (Auto) 0.1, Absolute Neuts (auto) 7.8 H, Absolute Lymphs (auto) 0.94, Nucleated RBC % 0 Current Medications Acetaminophen (Tylenol) 650 mg PO Q6H PRN PRN PRN Reason: Pain Score 1-3 /Temp>100.7 Last Admin: 09/21/19 08:36 Dose: 650 mg Documented by: Albuterol Sulfate (Ventolin Aerosols) 2.5 mg INHALATION Q2H PRN PRN PRN Reason: SHORTNESS OF BREATH Last Admin: 09/21/19 04:50 Dose: 2.5 mg Documented by: Albuterol/Ipratropium (Duoneb) 3 ml INHALATION Q4H.RT JIL Last Admin: 09/21/19 10:54 Dose: 3 ml Documented by: Citalopram Hydrobromide (Celexa) 40 mg PO DAILY JIL Last Admin: 09/21/19 08:16 Dose: 40 mg Documented by: Cyclobenzaprine HCl (Flexeril) 10 mg PO QHS [facility] Last Admin: 09/20/19 21:53 Dose: 10 mg Documented by: Enoxaparin Sodium (Lovenox) 40 mg SC DAILY [facility] Last Admin: 09/21/19 08:17 Dose: 40 mg Documented by: Gabapentin (Neurontin) 600 mg PO QHS [facility] Last Admin: 09/20/19 21:52 Dose: 600 mg Documented by: Gabapentin (Neurontin) 900 mg PO BREAKFAST [facility] Last Admin: 09/21/19 08:16 Dose: 900 mg Documented by: Guaifenesin (Robitussin Dm) 10 ml PO Q6H PRN PRN PRN Reason: COUGH Last Admin: 09/21/19 08:22 Dose: 10 ml Documented by: Sodium Chloride () 250 mls @ 15 mls/hr IV .[id number] PRN PRN Reason: Saline Flush Sodium Chloride () 250 mls @ 15 mls/hr IV .[id number] PRN PRN Reason: Additional IVPB Infusion Meloxicam (Mobic) 7.5 mg PO BID [facility] Last Admin: 09/21/19 08:16 Dose: 7.5 mg Documented by: Methylprednisolone (Solu-Medrol) 40 mg IV Q8 [facility] Last Admin: 09/21/19 05:11 Dose: 40 mg Documented by: Montelukast Sodium (Singulair) 10 mg PO DAILY [facility] Last Admin: 09/21/19 08:16 Dose: 10 mg Documented by: Ondansetron HCl (Zofran) 4 mg IV Q8H PRN PRN PRN Reason: Nausea Oxycodone HCl (Oxyir) 5 mg PO Q4H PRN PRN PRN Reason: Pain Score 4-10/10 Last Admin: 09/20/19 21:59 Dose: 5 mg Documented by: Pantoprazole Sodium (Protonix) 40 mg PO DAILY [facility] Last Admin: 09/21/19 08:16 Dose: 40 mg Documented by: Pramipexole Dihydrochloride (Mirapex) 1.5 mg PO BID [facility] Last Admin: 09/21/19 08:12 Dose: Not Given Documented by: Ramipril (Altace) 5 mg PO DAILY [facility] Sodium Chloride () 10 - 40 ml IV UD PRN PRN Reason: SALINE FLUSH Last Admin: 09/20/19 21:59 Dose: 10 ml Documented by: Medical Necessity - Tobacco Use Smoking Status: Former smoker Tobacco Use: Non-smoker Assessment/Plan All Active Problems Bronchospasm (Acute) Asthma exacerbation (Acute) 1. Acute exacerbation of asthma with bronchospasm secondary to RSV-negative for influenza. Chest x-ray without acute process. Albuterol and DuoNeb aerosols. Respiratory panel positive for RSV. IV Solu-Medrol. PRN cough suppressant. Oxygen stable on room air. Recommended establishing with [facility] of [place] at discharge. 2. FAY-continue home BiPAP regimen. 3. Hypertension-continue home MINAL inhibitor regimen. 4. Anxiety/Depression-continue Celexa regimen. 5. Fibromyalgia/Restless leg syndrome-continue home Mirapex, PRN pain regimen. 6. Reflex sympathetic dystrophy-continue Flexeril, gabapentin. 7. Morbid obesity-encouraged diet and lifestyle modifications. DVT prophylaxis-Lovenox subcu This patient was seen by GINO Coyne under the supervision of Dr. Campoverde. <Laron Campoverde - Last Filed: 09/21/19 13:12> Subjective: Overall patient shortness of breath and wheezing and cough improved. Patient needs 1 more day - Physical Exam Vitals/I&O's: Vital Signs Temp Pulse Resp BP Pulse Ox 98.6 F 85 20 H 159/96 H 95 09/21/19 08:30 09/21/19 10:54 09/21/19 10:54 09/21/19 08:30 09/21/19 08:30 Oxygen Delivery Method Room Air Weight: 322 lb 2 oz Body Mass Index (BMI) 50.4 Intake and Output for Last 24 Hours 09/19/19 09/20/19 09/21/19 23:59 23:59 23:59 Intake Total 350 / 350 480 / 480 Balance 350 / 350 480 / 480 General: Alert, Oriented x3, Cooperative HEENT: Atraumatic, PERRLA, EOMI, Normocephalic Neck: Supple, No JVD, Negative Carotid Bruits Lungs: Clear to auscultation, Diminished, Wheezes - Very fine occasional wheezing on coughing present. Cardiovascular: Regular rate, Regular Rhythm, Normal S1, No murmurs Abdomen: Bowel Sounds Present, Soft, Non Tender, Non-Distended, Obese Extremities: No cyanosis, No edema, Capillary Refill Less than 3 Seconds Skin: No rashes, No breakdown Musculoskeletal: No Tenderness to Palpation of Joints or Extremities, - - Right below-knee amputation Neurological: Cranial nerves II-XII grossly intact Psych/Mental Status: Normal Affect, Appropriate Microbiology Past 72 Hours 09/20/19 20:00 Mucosa - Nasopharyngeal Respiratory Panel (PCR) - Final RSV A 09/21/19 00:15 Sputum, Expectorated/Coughed Gram Stain - Preliminary 09/20/19 13:15 Mucosa - Nasopharyngeal Influenza Types A,B Direct FA (MCKAYLA) - Final Laboratory Results 09/20/19 13:20: WBC 6.9, RBC 4.56, Hgb 11.6 L, Hct 36.6 L, MCV 80.3 L, MCH 25.4 L, MCHC 31.7 L, RDW Std Deviation 51.0 H, RDW Coeff of Naga 17.6 H, Plt Count 256, MPV 10.4, Immature Gran % (Auto) 0.300, Neut % (Auto) 60.9, Lymph % (Auto) 20.1, Iron % (Auto) 13.0 H, Eos % (Auto) 5.0, Baso % (Auto) 0.7, Absolute Neuts (auto) 4.2, Absolute Lymphs (auto) 1.38, Nucleated RBC % 0 09/20/19 13:20: Sodium 141, Potassium 4.0, Chloride 110 H, Carbon Dioxide 27.0, Anion Gap 4 L, BUN 16, Creatinine 0.76, Estim Creat Clear Calc 76.55, Est GFR (MDRD) Af Amer 101, Est GFR (MDRD) Non-Af 83, BUN/Creatinine Ratio 21.2 H, Glucose 105, Calcium 8.7 09/21/19 05:58: WBC 9.1, RBC 4.63, Hgb 11.7 L, Hct 37.8, MCV 81.6, MCH 25.3 L, MCHC 31.0 L, RDW Std Deviation 53.4 H, RDW Coeff of Naga 18.6 H, Plt Count 264, MPV 11.1, Immature Gran % (Auto) 0.900, Neut % (Auto) 85.2 H, Lymph % (Auto) 10.3 L, Iron % (Auto) 3.5, Eos % (Auto) 0.0, Baso % (Auto) 0.1, Absolute Neuts (auto) 7.8 H, Absolute Lymphs (auto) 0.94, Nucleated RBC % 0 Current Medications Acetaminophen (Tylenol) 650 mg PO Q6H PRN PRN PRN Reason: Pain Score 1-3 /Temp>100.7 Last Admin: 09/21/19 08:36 Dose: 650 mg Documented by: Albuterol Sulfate (Ventolin Aerosols) 2.5 mg INHALATION Q2H PRN PRN PRN Reason: SHORTNESS OF BREATH Last Admin: 09/21/19 04:50 Dose: 2.5 mg Documented by: Albuterol/Ipratropium (Duoneb) 3 ml INHALATION Q4H.RT [facility] Last Admin: 09/21/19 10:54 Dose: 3 ml Documented by: Citalopram Hydrobromide (Celexa) 40 mg PO DAILY [facility] Last Admin: 09/21/19 08:16 Dose: 40 mg Documented by: Cyclobenzaprine HCl (Flexeril) 10 mg PO QHS [facility] Last Admin: 09/20/19 21:53 Dose: 10 mg Documented by: Enoxaparin Sodium (Lovenox) 40 mg SC DAILY [facility] Last Admin: 09/21/19 08:17 Dose: 40 mg Documented by: Gabapentin (Neurontin) 600 mg PO QHS [facility] Last Admin: 09/20/19 21:52 Dose: 600 mg Documented by: Gabapentin (Neurontin) 900 mg PO BREAKFAST [facility] Last Admin: 09/21/19 08:16 Dose: 900 mg Documented by: Guaifenesin (Robitussin Dm) 10 ml PO Q6H PRN PRN PRN Reason: COUGH Last Admin: 09/21/19 08:22 Dose: 10 ml Documented by: Sodium Chloride () 250 mls @ 15 mls/hr IV .[id number] PRN PRN Reason: Saline Flush Sodium Chloride () 250 mls @ 15 mls/hr IV .[id number] PRN PRN Reason: Additional IVPB Infusion Meloxicam (Mobic) 7.5 mg PO BID [facility] Last Admin: 09/21/19 08:16 Dose: 7.5 mg Documented by: Methylprednisolone (Solu-Medrol) 40 mg IV Q8 [facility] Last Admin: 09/21/19 05:11 Dose: 40 mg Documented by: Montelukast Sodium (Singulair) 10 mg PO DAILY [facility] Last Admin: 09/21/19 08:16 Dose: 10 mg Documented by: Ondansetron HCl (Zofran) 4 mg IV Q8H PRN PRN PRN Reason: Nausea Oxycodone HCl (Oxyir) 5 mg PO Q4H PRN PRN PRN Reason: Pain Score 4-10/10 Last Admin: 09/20/19 21:59 Dose: 5 mg Documented by: Pantoprazole Sodium (Protonix) 40 mg PO DAILY [facility] Last Admin: 09/21/19 08:16 Dose: 40 mg Documented by: Pramipexole Dihydrochloride (Mirapex) 1.5 mg PO BID [facility] Last Admin: 09/21/19 08:12 Dose: Not Given Documented by: Ramipril (Altace) 5 mg PO DAILY [facility] Sodium Chloride () 10 - 40 ml IV UD PRN PRN Reason: SALINE FLUSH Last Admin: 09/20/19 21:59 Dose: 10 ml Documented by: Assessment/Plan This patient was seen in conjunction with Ann Marie CHRISTOPHER. I have independently interviewed and examined the patient and reviewed pertinent history, examination findings, laboratory and plan of management. I have reviewed the note and agree with the documented findings with the few additional points. In brief, patient is admitted for acute asthma exacerbation with bronchospasm secondary to viral bronchitis RSV-A. Continue present regimen of IV Solu- Medrol, DuoNeb, incentive spirometry and chest physiotherapy as patient is improving. Possible discharge tomorrow a.m. Recommend follow-up with pulmonary clinic as outpatient as patient had intermittent asthma exacerbations and multiple ER visits in the last 3 to 4 months. Other comorbidities hypertension, fibromyalgia/restless leg syndrome/reflex sympathetic dystrophy as mentioned above Patient also has chronic nonhealing right lower extremity ulcer for which patient had right below-knee amputation. PT and OT is ordered. Follow-up with orthopedic surgeon and physical therapist as an outpatient for prosthesis. I have discussed my assessment with Ann Marie CHRISTOPHER and orders have been reviewed. Microbiology Past 72 Hours 09/20/19 20:00 Mucosa - Nasopharyngeal Respiratory Panel (PCR) - Final RSV A 09/21/19 00:15 Sputum, Expectorated/Coughed Gram Stain - Preliminary 09/20/19 13:15 Mucosa - Nasopharyngeal Influenza Types A,B Direct FA (MCKAYLA) - Final Laboratory Results 09/20/19 13:20: WBC 6.9, RBC 4.56, Hgb 11.6 L, Hct 36.6 L, MCV 80.3 L, MCH 25.4 L, MCHC 31.7 L, RDW Std Deviation 51.0 H, RDW Coeff of Naga 17.6 H, Plt Count 256, MPV 10.4, Immature Gran % (Auto) 0.300, Neut % (Auto) 60.9, Lymph % (Auto) 20.1, Iron % (Auto) 13.0 H, Eos % (Auto) 5.0, Baso % (Auto) 0.7, Absolute Neuts (auto) 4.2, Absolute Lymphs (auto) 1.38, Nucleated RBC % 0 09/20/19 13:20: Sodium 141, Potassium 4.0, Chloride 110 H, Carbon Dioxide 27.0, Anion Gap 4 L, BUN 16, Creatinine 0.76, Estim Creat Clear Calc 76.55, Est GFR (M DRD) Af Amer 101, Est GFR (MDRD) Non-Af 83, BUN/Creatinine Ratio 21.2 H, Glucose 105, Calcium 8.7 09/21/19 05:58: WBC 9.1, RBC 4.63, Hgb 11.7 L, Hct 37.8, MCV 81.6, MCH 25.3 L, MCHC 31.0 L, RDW Std Deviation 53.4 H, RDW Coeff of Naga 18.6 H, Plt Count 264, MPV 11.1, Immature Gran % (Auto) 0.900, Neut % (Auto) 85.2 H, Lymph % (Auto) 10.3 L, Iron % (Auto) 3.5, Eos % (Auto) 0.0, Baso % (Auto) 0.1, Absolute Neuts (auto) 7.8 H, Absolute Lymphs (auto) 0.94, Nucleated RBC % 0 Code Visit Inpatient E&M: 03407 Subs Hosp L2
[2019-09-21] MEDS: Ramipril 5 MG Capsule PO (13:36)
[2019-09-21] MEDS: 0.9% Saline Lock 10 ML Syringe IV ×2 (13:37→21:56)
[2019-09-21] MEDS: Pramipexole Di-HCl 0.5 MG Tablet 1.5 MG PO (21:55)
[2019-09-21] MEDS: Gabapentin 600 MG Tablet PO (21:55)
[2019-09-21] MEDS: cycloBENZAPRine HCl 10 MG Tablet PO (21:55)
[2019-09-22] MEDS: guaiFENesin Dm 10 ML UDC PO ×2 (02:33→10:26)
[2019-09-22 03:27] VITALS: PULSE 86; RESP 20
[2019-09-22] MEDS: Ipratropium/Albuterol Sulfate 3 ML AMPUL.NEB INHALATION ×3 (03:27→11:19)
[2019-09-22] MEDS: 0.9% Saline Lock 10 ML Syringe IV (06:23)
[2019-09-22 06:41] VITALS: BP 151/69; PULSE 73; RESP 18; TEMP 36.5; O2SAT 96
[2019-09-22 06:50] VITALS: PULSE 81; RESP 12; O2SAT 94
--- NOTE | 2019-09-22 07:55 | CPS ---
Patient only wears 2L bleed in through CPAP at night. Room air during the day.
[2019-09-22] MEDS: Ramipril 5 MG Capsule PO (10:18)
[2019-09-22] MEDS: Citalopram 40 MG TABLET PO (10:18)
[2019-09-22] MEDS: Pramipexole Di-HCl 0.5 MG Tablet 1.5 MG PO (10:18)
[2019-09-22] MEDS: Gabapentin 300 MG Capsule 900 MG PO (10:18)
[2019-09-22] MEDS: Enoxaparin 40 MG/0.4 ML Syringe SC (10:18)
[2019-09-22] MEDS: Pantoprazole Sodium 40 MG Tablet PO (10:19)
[2019-09-22] MEDS: Meloxicam 7.5 MG Tablet PO (10:19)
[2019-09-22] MEDS: Montelukast 10 MG Tablet PO (10:19)
--- NOTE | 2019-09-22 11:02 | DCINST_ITS ---
- Discharge Diagnoses Current Active Problems: Current Active and Chronic Problems Asthma exacerbation (Acute) You will use the following diet at home:: No restrictions Your food should be the consistency of: Regular Your liquids should be the consistency of: Regular/Thin Discharge Activity: Return to Normal Activity Weight Bearing Status: Full weight bearing Allergies/Adverse Reactions: Allergies amlodipine Adverse Reaction (Verified 09/20/19 17:06) Swelling Medications to take at Discharge Meloxicam 7.5 mg PO BID 01/16/14 Montelukast [Singulair] 10 mg PO DAILY 01/16/14 cycloBENZAPRine HCl [Flexeril] 10 mg PO QHS 06/06/14 Omeprazole [Prilosec] 40 mg PO DAILY 07/12/15 Nebulizer [Lc Plus] 1 each INHALATION Q4H PRN PRN 11/18/15 Gabapentin [Neurontin] 900 mg PO BREAKFAST 01/13/17 Furosemide [Lasix] 40 mg PO BID PRN 06/13/17 Citalopram [Celexa] 40 mg PO DAILY 08/25/18 Potassium Chloride [K-Dur] 40 meq PO DAILY 11/01/18 Gabapentin 600 mg PO QHS 09/20/19 Oxycodone HCl/Acetaminophen [Percocet 5-325] 1 tab PO QHS PRN PRN 09/20/19 Ramipril 5 mg PO DAILY 09/21/19 Albuterol IH (ProAir) [Proair Hfa (SP)Vent Pts] 1 - 2 puff INHALATION Q6H PRN PRN #1 inhaler 09/22/19 Pramipexole Di-HCl [Mirapex] 1 mg PO QHS #1 tab 09/22/19 Prednisone 10 mg PO UD #30 tab 09/22/19 The following prescriptions were given: Pramipexole Di-HCl [Mirapex] 1 mg PO QHS #1 tab Prednisone 10 mg PO UD #30 tab Albuterol IH (ProAir) [Proair Hfa (SP)Vent Pts] 1 - 2 puff INHALATION Q6H PRN PRN #1 inhaler PRN Reason: Dyspnea Primary Care Physician: Butch Maddox, CANDI-C [Primary Care Provider] - Please follow up with your Primary Care Physician in: in 2-3 weeks Test Results: Test results from this visit will be discussed in further detail at your follow- up appointment, if applicable.
[2019-09-22 11:04] VITALS: BP 138/79; PULSE 76; RESP 18; TEMP 36.9; O2SAT 96
--- NOTE | 2019-09-22 11:12 | CASEMGMT ---
Case Management Progress Note This development writer to patient bedside, introduced self and role. Explained/reviewed COHEN form with patient in regards to current hospital treatment this admission. Informed outpatient billing is determined by her insurance plan and continual review is conducted to determine any condition changes that may warrant Inpatient stay. States understanding, denies any questions or concerns with COHEN form. Patient signed Cohen form which was placed in hard chart and given a copy. JEAN Stark
[2019-09-22 11:19] VITALS: PULSE 83; RESP 20
--- NOTE | 2019-09-24 16:20 | PCM.DC.SUM ---
Discharge Date and Diagnosis Date of Admission: 09/20/19 Date of Discharge: 09/22/19 - Primary Discharge Diagnosis #1 acute exacerbation of asthma with bronchospasm secondary to RSV 2. Obstructive sleep apnea 3. Hypertension 4. Anxiety/Depression 5. Fibromyalgia/Restless leg syndrome 6. Reflex sympathetic dystrophy 7. Morbid obesity #8 bronchitis secondary to RSV - Secondary Discharge Diagnosis Chronic Problems Anxiety (Chronic) Asthma (Chronic) Benign essential HTN (Chronic) Reflex sympathetic dystrophy (Chronic) Fibromyalgia (Chronic) Morbid obesity (Chronic) Obstructive sleep apnea (Chronic) Restless leg syndrome (Chronic) Family history of diabetes mellitus (DM) (Chronic) Hospital Course and Treatment Operations: None Procedures: None Summary of Care Provided: The patient is a 59 year old F seen in the emergency room at [facility] with a chief complaint of shortness of breath, work-up in the emergency room revealed her CBC and basic metabolic profile to be within normal limits, PA and lateral chest x-ray was obtained which showed no acute cardiopulmonary process. Patient was given DuoNeb aerosols and IV Solu-Medrol, on reevaluation, the patient continued to have expiratory wheezes and was admitted for acute exacerbation of asthma. Patient was given IV Solu-Medrol and aerosol treatments, respiratory panel was positive for RSV. On 09/22/2019, patient was seen and examined: On examination she appeared in good health and spirits. Vital signs as documented. Skin warm and dry and without overt rashes. Neck without JVD. Lungs clear. Heart exam notable for regular rhythm, normal sounds and absence of murmurs, rubs or gallops. Abdomen unremarkable and without evidence of organomegaly, masses, or abdominal aortic enlargement. Extremities nonedematous. Neuro: Cranial nerves II through XII are grossly intact, no focal motor deficits were noted, sensation to light touch and pinprick is intact. Psych: Patient is alert and oriented x3, she does not appear anxious or depressed On 09/22/2019, patient was seen and examined and felt to be in stable condition for discharge home. - Physical Exam Vitals/I&O's: Vital Signs Temp Pulse Resp BP Pulse Ox 98.5 F 83 20 H 138/79 H 96 09/22/19 11:04 09/22/19 11:19 09/22/19 11:19 09/22/19 11:04 09/22/19 11:04 Oxygen Flow Rate (L/min) 2 Oxygen Delivery Method Room Air Weight: 146.113 kg Body Mass Index (BMI) 50.4 Microbiology Past 72 Hours 09/21/19 00:15 Sputum, Expectorated/Coughed Gram Stain - Final 09/21/19 00:15 Sputum, Expectorated/Coughed Respiratory Culture - Final Discharge Activity: Return to Normal Activity Weight Bearing Status: Full weight bearing Home Medications: Medications to take at Discharge Meloxicam 7.5 mg PO BID 01/16/14 Montelukast [Singulair] 10 mg PO DAILY 01/16/14 cycloBENZAPRine HCl [Flexeril] 10 mg PO QHS 06/06/14 Omeprazole [Prilosec] 40 mg PO DAILY 07/12/15 Nebulizer [Lc Plus] 1 each INHALATION Q4H PRN PRN 11/18/15 Gabapentin [Neurontin] 900 mg PO BREAKFAST 01/13/17 Furosemide [Lasix] 40 mg PO BID PRN 06/13/17 Citalopram [Celexa] 40 mg PO DAILY 08/25/18 Potassium Chloride [K-Dur] 40 meq PO DAILY 11/01/18 Gabapentin 600 mg PO QHS 09/20/19 Oxycodone HCl/Acetaminophen [Percocet 5-325] 1 tab PO QHS PRN PRN 09/20/19 Ramipril 5 mg PO DAILY 09/21/19 Albuterol IH (ProAir) [Proair Hfa (SP)Vent Pts] 1 - 2 puff INHALATION Q6H PRN PRN #1 inhaler 09/22/19 Pramipexole Di-HCl [Mirapex] 1 mg PO QHS #1 tab 09/22/19 Prednisone 10 mg PO UD #30 tab 09/22/19 Following Prescrptions Were Given to Patient: Pramipexole Di-HCl [Mirapex] 1 mg PO QHS #1 tab Prednisone 10 mg PO UD #30 tab Albuterol IH (ProAir) [Proair Hfa (SP)Vent Pts] 1 - 2 puff INHALATION Q6H PRN PRN #1 inhaler PRN Reason: Dyspnea Primary Care Physician: Butch Maddox NP-C [Primary Care Provider] - Please follow up with your Primary Care Physician in: in 2-3 weeks Disposition: Home Minutes spent on discharge:: 30 Patient Condition:: Stable Medical Necessity - Tobacco Use Smoking Status: Former smoker Tobacco Use: Non-smoker Meaningful Use Info Meaningful Use Diagnoses (Choose all that apply): None applicable Code Visit OBSV E&M: 20810 Observation care discharge
== END 2019-09-22 13:02 | disposition home or self-care (01) ==
LOC: ED 15:34 → MS3 16:34
PROVIDERS: Admitting Provider Nurse Practitioner Family; Emergency Provider Emergency Medicine; Family Provider Nurse Practitioner Family; PCP Nurse Practitioner Family; Referring Provider Nurse Practitioner Family; Visit Provider Internal Medicine
DX: J45.901 Unspecified asthma with (acute) exacerbation (principal); B97.4 Respiratory syncytial virus as the cause of diseases classified elsewhere; G47.33 Obstructive sleep apnea (adult) (pediatric); Z23 Encounter for immunization; I10 Essential (primary) hypertension; E66.01 Morbid (severe) obesity due to excess calories; M79.7 Fibromyalgia; F41.9 Anxiety disorder, unspecified; F32.9 Major depressive disorder, single episode, unspecified; G90.50 Complex regional pain syndrome I, unspecified; G25.81 Restless legs syndrome; Z68.43 Body mass index [BMI] 50.0-59.9, adult; Z71.3 Dietary counseling and surveillance; Z79.899 Other long term (current) drug therapy; Z87.891 Personal history of nicotine dependence
CPT/HCPCS: 36415; 71046; 80048; 85025; 87070; 87205; 87633; 87804; 94640; 96372; 96374; 96376; 99218; 99251; 99285; G0008; 90686; A4216; G0378; G0463

== ENCOUNTER 2019-10-03 15:33 | Inpatient (IN) | payer MEDICARE, SELFPAY ==
[2019-09-20 16:57] VITALS: BMI 50.4
[2019-10-03] VITALS (8 sets, daily range): BP systolic 116–177; BP diastolic 72–92; PULSE 80–98; RESP 16–20; TEMP 36.2–36.9; O2SAT 94–97; BMI 49.9
--- NOTE | 2019-10-03 15:45 | RAD_ITS ---
STUDY: X-RAY CHEST REASON FOR EXAM: Female, 59 years old. SOB TECHNIQUE: Single AP portable view of the chest. COMPARISON: Previous study of 09/20/2019 FINDINGS: security monitor leads are present. The lungs are clear and expanded. There is no demonstrated pleural abnormality. Normal size heart. Normal mediastinum and jimmy. Normal visualized pulmonary arteries. There are calcified plaques of the aortic arch. Normal visualized thoracic spine. Normal visualized ribs, clavicles, and shoulders. There is no demonstrated abnormality of the visualized soft tissue structures of the upper abdomen. RAD/Chest 1 View (Portable) IMPRESSION: Calcified plaques in the aortic arch. No acute cardiopulmonary disease process is seen. Electronically Signed: Wilfrid Floyd MD at 16:10 EST , Service support ,
--- NOTE | 2019-10-03 15:45 | EKG12_ITS ---
Test Reason : SOB Blood Pressure : / mmHG Vent. Rate : 088 BPM Atrial Rate : 088 BPM P-R Int : 144 ms QRS Dur : 082 ms QT Int : 360 ms P-R-T Axes : 035 012 076 degrees QTc Int : 435 ms Normal sinus rhythm Left ventricular hypertrophy with repolarization abnormality Abnormal ECG Confirmed by RASHEL BORDEN, STEWART ([id number]), movie editor LUZ MARINA GREY ([id number]) on 10/06/2019 12:51:04 PM Referred By: NELDA Confirmed By:STEWART KISER MD
--- NOTE | 2019-10-03 15:46 | ED.VISSUMM ---
- ER Visit Summary Date of Service: 10/03/19 Chief Complaint: Shortness of breath History of Present Illness: The patient is a 59 F presenting with shortness of breath. She states her symptoms started late August. She was admitted from 09/20 to 09/23/2019. She finished a prednisone taper yesterday. She went to urgent care today and was diagnosed with a left ear infection. They gave her a breathing treatment and she continued to complain of shortness of breath so they sent her to the emergency department. Denies chest pain. Denies fever. She has had a cough. Denies other complaints. Physical Examination: Vitals are stable. Patient is afebrile. Alert no acute distress. HEENT exam mild left TM erythema Neck is supple. No meningismus Lungs are clear and equal bilaterally. Heart is regular rate and rhythm. Abdomen is soft nontender nondistended. Extremities right below-knee amputation Skin is warm and dry. No focal neurologic deficit. Remainder of exam is unremarkable. Emergency Department Course and Treatment: Patient was given DuoNeb aerosol. She was given Solu-Medrol IV. EKG is sinus rhythm rate of 88 with LVH. Chest x-ray shows no acute process. CBC shows white count 14.3. Chemistries normal except for CO2 20, glucose 109. Troponin negative. D-dimer negative. Influenza negative. Patient continues to feel dyspneic with ambulation. Discussed with the hospitalist for admission. Disposition: Admission Impression: Asthma exacerbation This note was generated with [employer] dictation software. It may contain incorrect words, spelling, and punctuation that were not noted in review of the chart prior to signing ED Disposition - Plan for ED Patient: Referrals: Butch Maddox, CANDI-C [Primary Care Provider] -
[2019-10-03] MEDS: Ipratropium/Albuterol Sulfate 3 ML AMPUL.NEB INHALATION (16:10)
[2019-10-03] MEDS: MethylPREDNISolone 125 MG/2 ML Vial IV (16:21)
[2019-10-03 16:32] LABS: Anion Gap 10 (5-15); BUN 14 mg/dL (7-18); BUN/Creat Ratio 15.8 RATIO (10-20); Calcium,Total 8.6 mg/dL (8.5-10.1); Chloride 110 mmol/L (98-107); Creatinine, Serum 0.89 mg/dL (0.55-1.02); EST Glomerular Filtration Rate 69 mL/min (>60); Est Glom Filt Rate - Afr Amer 83 mL/min (>60); Estimated Creatinine Clearance 151.14 ml/min; Glucose 109 mg/dL (74-106); Potassium 3.8 mmol/L (3.5-5.1); Sodium Level 140 mmol/L (136-145)
[2019-10-03 16:47] LABS: Absolute Neutrophil Count 11.1 X10^3/uL (2.0-7.7); Basophil# 0.04 X10^3/uL; Basophil% 0.3 % (0-1); Eosinophil# 0.11 X10^3/uL; Eosinophils% 0.8 % (0-5); Hematocrit 39.2 % (37-47); Hemoglobin 12.4 g/dL (12.0-15.0); Lymphocyte % 11.9 % (19-41); Mean Corp Hgb Conc 31.6 g/dL (32-36); Mean Corpuscular Hgb 26.1 pg (27.0-32.0); Mean Corpuscular Volume 82.5 fL (81-99); Monocyte# 1.14 X10^3/uL; NRBC Flagged by Analyzer 0 % (0-5); Neutrophil # 11.14 X10^3/uL (2.7-7.7); Neutrophil % 78.1 % (47-70); Platelet Count 273 K/mm3 (150-450); RBC Distribution Width CV 18.2 % (11.6-14.6); RBC Distribution Width SD 53.4 fl (35.1-43.9); Red Blood Count 4.75 M/mm3 (4.2-5.4); White Blood Count 14.3 K/mm3 (4.4-11.0)
[2019-10-03 16:59] LABS: D-Dimer Quantitative (DVT/PE) 0.45 FEU/ug/m (0.27-0.49)
--- NOTE | 2019-10-03 18:30 | HP.PCM_ITS ---
Problem List (1) Asthma exacerbation Status: Acute Qualifiers: Asthma severity: unspecified severity Asthma persistence: unspecified Qualified Code(s): J45.901 - Unspecified asthma with (acute) exacerbation (2) Benign essential HTN Status: Chronic (3) Fibromyalgia Status: Chronic (4) Morbid obesity Status: Chronic (5) Obstructive sleep apnea Status: Chronic (6) Reflex sympathetic dystrophy Status: Chronic (7) Restless leg syndrome Status: Chronic (8) Anxiety and depression Status: Chronic History of Present Illness Date of Admission: 10/03/19 Chief Complaint: Dyspnea, wheezing. The patient is a 59 y/o F w/ PMHx: Morbid, Obesity, Hx R BKA secondary to history of R foot infection w/ attempted surgical intervention x 11, FAY on q HS BIPAP, Chronic Asthma, HTN, HLD, RLS, Anxiety and Depression, Neuropathy, Allergic Rhinitis, Former tobacco use who presents to the [facility] ED on 10/03/19 with history of recent evaluation 09/20/19 with intractable ongoing dry cough, congestion, rhinorrhea, wheezing with steroid taper administration with completion 10/03/18 without marked improvement with UC evaluation on day of ED presentation with noted concern for concurrent recent onset severe left ear pain x3 days with diagnosis at their facility of L ear acute otitis media with increased work of breathing with referral to the ED for evaluation. She denies any recent fever or chills. Work-up in the ED included T 97.1, heart 95, BP 177/83 initially with improvement to 116/92, respiratory rate 16, 97% on room air, CBC with WBC 14.3, hemoglobin 12.4, platelet 273 with left shift evident, negative d-dimer, BMP with chloride 110, carbon oxide 20, glucose 109, troponin less than 0.015, rapid influenza negative, chest x-ray with no acute cardiopulmonary findings identified, calcified plaque in the aortic arch. In the ED patient ministered Solu-Medrol 125 mg IV x1 as well as DuoNeb therapy x1. Past Medical History Past Medical History (Chronic Problems): Chronic Problems Anxiety and depression (Chronic) Anxiety (Chronic) Asthma (Chronic) Benign essential HTN (Chronic) Reflex sympathetic dystrophy (Chronic) Fibromyalgia (Chronic) Morbid obesity (Chronic) Obstructive sleep apnea (Chronic) Restless leg syndrome (Chronic) Family history of diabetes mellitus (DM) (Chronic) Allergies amlodipine Adverse Reaction (Verified 09/20/19 17:06) Swelling Home Medications: Ambulatory Orders Medication Instructions Recorded Meloxicam 7.5 mg PO BID 01/16/14 Montelukast [Singulair] 10 mg PO DAILY 01/16/14 cycloBENZAPRine HCl [Flexeril] 10 mg PO QHS 06/06/14 Omeprazole [Prilosec] 40 mg PO DAILY 07/12/15 Gabapentin [Neurontin] 900 mg PO BREAKFAST 01/13/17 Furosemide [Lasix] 40 mg PO BID PRN 06/13/17 Citalopram [Celexa] 40 mg PO DAILY 08/25/18 Potassium Chloride [K-Dur] 40 meq PO DAILY 11/01/18 Gabapentin 600 mg PO QHS 09/20/19 Oxycodone HCl/Acetaminophen 1 tab PO QHS PRN PRN 09/20/19 [Percocet 5-325] Ramipril 5 mg PO DAILY 09/21/19 Albuterol IH (ProAir) [Proair Hfa 1 - 2 puff INHALATION Q6H PRN PRN 09/22/19 (SP)Vent Pts] #1 inhaler Pramipexole Di-HCl [Mirapex] 1 mg PO QHS #1 tab 09/22/19 Prednisone 10 mg PO UD #30 tab 09/22/19 Surgical History: - - Breast reduction surgery, bladder sling, bilateral foot surgery, right foot surgery and right lower extremity surgery x11 with eventual right BKA, hysterectomy, bilateral hip implants with one bladder and the other pain associated, left total knee replacement, tonsillectomy, tummy tuck. 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 Tobacco Use: Cigarettes Alcohol: Occasional Drugs: None - *Family History Paternal History Items: Cancer - in his 70s of pancreatic cancer., Diabetes, Heart Disease, Hypertension Sibling History Items: - - Denies significant sibling history including cardiac history. Maternal History Items: Cancer - in her 50s of pancreatic cancer., Diabetes, Heart Disease, Hypertension Review of Systems Constitutional: Reports: Anorexia, Malaise, Weakness, Fatigue. Denies: Chills, Fever, Weight Change HEENT: Reports: Nasal Congestion, Sinus Congestion, Sinus Drainage, - - Notable left severe earache x3 days.. Denies: Head Aches Cardiovascular: Denies: Chest Pain, Palpitations Respiratory: Reports: Cough, Shortness of Breath, Shortness of breath at rest, Shortness of breath upon exertion, Wheezing. Denies: Sputum production Gastrointestinal: Denies: Abdominal Pain, Nausea, Vomiting Genitourinary: Denies: Dysuria Musculoskeletal: Reports: Joint Pain, Leg Pain, Muscle pain. Denies: Joint Tenderness Skin: Denies: Rash, Wounds Neurological: Denies: Numbness, Tingling, Focal weakness Psychiatric: Reports: Anxiety, Depression. Denies: Homicidal Ideations, Suicidal Ideations Hematologic/ Lymphatic: Denies: Easy Bruising, Easy Bleeding VTE Information - Inpt Only VTE Present on Admission: No VTE Mechan Device Prophylaxis: SCD's VTE Pharm Prophylaxis ordered?: Yes Subjective: Seated upright in the ED bed, fatigued appearance, mildly increased work of breathing, harsh dry coughing during exam. Objective: Physical Examination: General: awake, alert, oriented x 3 and cooperative, seated upright in the ED bed, coughing, harsh, increased mild work of breathing. Skin: normal color, turgor, no icterus, cyanosis. HEENT: AT/NC, EOMI, PERRLA, dry MM, posterior OP erythema without exudate, left greater than right mild canal erythema, mild bulging TM, no carotid bruits or JVD noted. Lungs: CTA bilaterally, moderate effort, mild decrease BL bases, no rales, ronchi or wheezing. Heart: Regular rate and rhythm; no gallop, rub audible. Abdomen: soft, morbidly obese, NTTP, ND, normal BS, no HSM. Extremities: no cyanosis, clubbing, or edema, status post right BKA. Neurological: patient awake, alert, oriented x 3; cognitive function intact; pupils equally reactive to light and accomodation; cranial nerves II-XII grossly normal, moving all 4 extremities, no focal deficits, strength severely global decrease secondary to acute presentation. Psychiatric: affect appears fatigued, no acute evidence of depressive or anxiety feelings. - Physical Exam Vitals/I&O's: Vital Signs Temp Pulse Resp BP Pulse Ox 97.1 F L 88 20 H 116/92 H 94 10/03/19 15:34 10/03/19 17:43 10/03/19 17:43 10/03/19 17:43 10/03/19 17:43 Oxygen Delivery Method Room Air Weight: 314 lb Body Mass Index (BMI) 0.3 Microbiology Past 72 Hours 10/03/19 16:10 Mucosa - Nose Influenza Types A,B Direct FA (MCKAYLA) - Final Laboratory Results 10/03/19 16:05: WBC Cancelled, Corrected WBC Cancelled, RBC Cancelled, Hgb Cancelled, Hct Cancelled, MCV Cancelled, MCH Cancelled, MCHC Cancelled, RDW Std Deviation Cancelled, RDW Coeff of Naga Cancelled, Plt Count Cancelled, MPV Cancelled, Immature Gran % (Auto) Cancelled, Neut % (Auto) Cancelled, Lymph % (Auto) Cancelled, Fulton % (Auto) Cancelled, Eos % (Auto) Cancelled, Baso % (Auto) Cancelled, Absolute Neuts (auto) Cancelled, Absolute Lymphs (auto) Cancelled, Total Counted Cancelled, Neutrophils % (Manual) Cancelled, Band Neutrophils % Cancelled, Lymphocytes % (Manual) Cancelled, Monocytes % (Manual) Cancelled, Eosinophils % (Manual) Cancelled, Basophils % (Manual) Cancelled, Metamyelocytes % Cancelled, Myelocytes % Cancelled, Promyelocytes % Cancelled, Blast Cells % Cancelled, Plasma Cell % (Manual) Cancelled, Other Cells % Cancelled, Nucleated RBC % Cancelled, Nucleated RBCs/100 WBC Cancelled, Differential Comment Cancelled, Diff Path Review Cancelled, Hypersegmented Neuts Cancelled, Atypical Lymphocytes Cancelled, Reactive Lymphocytes Cancelled, Smudge Cells Cancelled, Toxic Granulation Cancelled, Toxic Vacuolation Cancelled, Dohle Bodies Cancelled, Santos Rods Cancelled, Platelet Estimate Cancelled, Plt Morphology Comment Cancelled, RBC Morphology Cancelled, Polychromasia Cancelled, Hypochromasia Cancelled, Poikilocytosis Cancelled, Basophilic Stippling Cancelled, Anisocytosis Cancelled, Microcytosis Cancelled, Macrocytosis Cancelled, Spherocytes Cancelled, Sickle Cells Cancelled, Target Cells Cancelled, Tear Drop Cells Cancelled, Ovalocytes Cancelled, Stomatocytes Cancelled, Sandoval-Di Giorgio Bodies Cancelled, Tolna Cells Cancelled, Bite Cells Cancelled, Crenated Cell Cancelled, Acanthocytes (Spur) Cancelled, Rouleaux Can celled, Schistocytes Cancelled 10/03/19 16:05: Sodium 140, Potassium 3.8, Chloride 110 H, Carbon Dioxide 20.0 L , Anion Gap 10, BUN 14, Creatinine 0.89, Estim Creat Clear Calc 151.14, Est GFR (MDRD) Af Amer 83, Est GFR (MDRD) Non-Af 69, BUN/Creatinine Ratio 15.8, Glucose 109 H, Calcium 8.6, Troponin I < 0.015 10/03/19 16:11: D-Dimer Quant (PE/DVT) 0.45 10/03/19 16:15: WBC 14.3 H, RBC 4.75, Hgb 12.4, Hct 39.2, MCV 82.5, MCH 26.1 L, MCHC 31.6 L, RDW Std Deviation 53.4 H, RDW Coeff of Naga 18.2 H, Plt Count 273, MPV 11.0, Immature Gran % (Auto) 0.900, Neut % (Auto) 78.1 H, Lymph % (Auto) 11.9 L, Fulton % (Auto) 8.0, Eos % (Auto) 0.8, Baso % (Auto) 0.3, Absolute Neuts (auto) 11.1 H, Absolute Lymphs (auto) 1.70, Nucleated RBC % 0 Assessment/Plan All Active Problems Bronchospasm (Acute) Asthma exacerbation (Acute) The patient is a 59 y/o F w/ PMHx: Morbid, Obesity, Hx R BKA, FAY on q HS BIPAP, Chronic Asthma, HTN, HLD, RLS, Anxiety and Depression, Neuropathy, Allergic Rhinitis, Former tobacco use who presents to the [facility] ED on 10/03/19 with history of recent evaluation 09/20/19 with intractable ongoing dry cough, congestion, rhinorrhea, wheezing with steroid taper administration with completion 10/03/18 without marked improvement with UC evaluation on day of ED presentation with noted concern for concurrent recent onset severe left ear pain x3 days with diagnosis at their facility of L ear acute otitis media with increased work of breathing with referral to the ED for evaluation. She denies any recent fever or chills. 1. Acute on Chronic Asthma exacerbation, Failed outpatient treatment: CXR w/ chronic changes, CBC on admission w/ WBC elevation and L shift, recent steroid administration however. Will admit to [facility], maintain on oxygen with wean as tolerated to room air, continue ATC duonebs, PRN albuterol, IV methy lprednisolone, HOB, IS parameters, pending sputum cultures, rapid influenza negative, no respiratory viral panels available, request RSV rapid. 2. ? Acute L otitis media: Reevaluation left ear with erythema, not severe appearing however severe discomfort and pain, on antibiotic therapy thus WBC elevation shift could be secondary to this, per discussion with patient will initiate antibiotic therapy with Augmentin. 3. Hypertension: Continue home regimen including ramipril, lasix, PRN hydralazine. 4. Allergic rhinitis: We will continue home Singulair regimen. 5. Anxiety and depression: We will continue patient home Celexa regimen. 6. RLS: We will continue home Mirapex regimen. 7. GERD: Continue home PPI. 8. Chronic pain syndrome, Neuropathy: s/p R BKA, will continue patient home Flexeril, Mobic, gabapentin PRN Percocet regimen. 9. FAY: Maintain on q HS BIPAP. 10. Morbid Obesity: Weight loss and lifestyle changes encouraged, nutrition consulted. 11. DVT prophylaxis: SCDs, Lovenox. Code Visit Inpatient E&M: 74386 Init Hosp L3
[2019-10-03] MEDS: 0.9% Normal Saline 1,000 ML 125 ML IV (21:34)
[2019-10-03] MEDS: cycloBENZAPRine HCl 10 MG Tablet PO (21:35)
[2019-10-03] MEDS: Amox/Clavulanate 875 MG Tablet PO (21:35)
[2019-10-03] MEDS: Gabapentin 600 MG Tablet PO (21:36)
[2019-10-03] MEDS: Meloxicam 7.5 MG Tablet PO (21:36)
[2019-10-03] MEDS: Pramipexole Di-HCl 1 MG Tablet PO (21:36)
[2019-10-03] MEDS: 0.9% Saline Lock 10 ML Syringe IV (21:37)
[2019-10-04] VITALS (7 sets, daily range): BP systolic 133–172; BP diastolic 58–89; PULSE 63–100; RESP 12–23; TEMP 36.6–36.7; O2SAT 93–96
[2019-10-04] MEDS: 0.9% Normal Saline 1,000 ML 125 ML IV (04:16)
[2019-10-04] MEDS: Acetaminophen 325 MG Tablet 650 MG PO (04:54)
[2019-10-04] MEDS: 0.9% Saline Lock 10 ML Syringe IV ×2 (04:55→13:18)
[2019-10-04] MEDS: Ipratropium/Albuterol Sulfate 3 ML AMPUL.NEB INHALATION (07:06)
--- NOTE | 2019-10-04 08:11 | PCM.CONS.PUL ---
Reason for Consult Date of Consultation: 10/04/19 Reason for Consultation: Asthma exacerbation History of Present Illness: The patient is a 59-year-old female, with a history as outlined below, who presented to the emergency department on October 03 with complaints of shortness of breath. The patient had just been evaluated in the urgent care and was apparently diagnosed with a left inner ear infection. The patient was also just admitted to the hospital September 20, during which time she was treated for an acute asthma exacerbation secondary to RSV infection. The patient reports that upon discharge from the hospital at the end of August that she did feel better. However, upon completion of her prednisone taper, she once again began to feel crummy. The patient was previously being followed by Dr. Philip, but has been without pulmonary follow-up since he left the area. In addition to asthma, she does have a known history of obstructive sleep apnea for which she is currently prescribed nocturnal BiPAP therapy. The patient does report that for a period of time in the past she was also on Xolair therapy. On presentation to the emergency department, the patient was noted to be afebrile and hemodynamically stable. She was maintaining appropriate oxygen saturations on room air. Laboratory evaluation revealed an elevated white blood cell count of 14,000. Plain film chest x-ray reviewed no acute cardiopulmonary process. The patient was subsequently admitted to the medical surgical floor, where she has been maintained on Augmentin, bronchodilators and IV steroids. She does report this morning that she feels as if her breathing quality is back to baseline. She is agreeable to follow-up in the pulmonary medicine clinic after discharge. Past Medical History Past Medical History (Chronic Problems): Chronic Problems Anxiety and depression (Chronic) Anxiety (Chronic) Asthma (Chronic) Benign essential HTN (Chronic) Reflex sympathetic dystrophy (Chronic) Fibromyalgia (Chronic) Morbid obesity (Chronic) Obstructive sleep apnea (Chronic) Restless leg syndrome (Chronic) Family history of diabetes mellitus (DM) (Chronic) Allergies amlodipine Adverse Reaction (Verified 09/20/19 17:06) Swelling Home Medications: Ambulatory Orders Medication Instructions Recorded Meloxicam 7.5 mg PO BID 01/16/14 Montelukast [Singulair] 10 mg PO DAILY 01/16/14 cycloBENZAPRine HCl [Flexeril] 10 mg PO QHS 06/06/14 Omeprazole [Prilosec] 40 mg PO DAILY 07/12/15 Gabapentin [Neurontin] 900 mg PO BREAKFAST 01/13/17 Furosemide [Lasix] 40 mg PO BID PRN 06/13/17 Citalopram [Celexa] 40 mg PO DAILY 08/25/18 Potassium Chloride [K-Dur] 40 meq PO DAILY 11/01/18 Gabapentin 600 mg PO QHS 09/20/19 Oxycodone HCl/Acetaminophen 1 tab PO QHS PRN PRN 09/20/19 [Percocet 5-325] Ramipril 5 mg PO DAILY 09/21/19 Albuterol IH (ProAir) [Proair Hfa 1 - 2 puff INHALATION Q6H PRN PRN 09/22/19 (SP)Vent Pts] #1 inhaler Pramipexole Di-HCl [Mirapex] 1 mg PO QHS #1 tab 09/22/19 Prednisone 10 mg PO UD #30 tab 09/22/19 Surgical History: - - Breast reduction surgery, bladder sling, bilateral foot surgery, right foot surgery and right lower extremity surgery x11 with eventual right BKA, hysterectomy, bilateral hip implants with one bladder and the other pain associated, left total knee replacement, tonsillectomy, tummy tuck. 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 Tobacco Use: Cigarettes Alcohol: Occasional Drugs: None - *Family History Maternal History Items: Cancer - in her 50s of pancreatic cancer., Diabetes, Heart Disease, Hypertension Paternal History Items: Cancer - in his 70s of pancreatic cancer., Diabetes, Heart Disease, Hypertension Sibling History Items: - - Denies significant sibling history including cardiac history. Review of Systems Constitutional: Denies: Chills, Fever Eyes: Denies: Blurred vision, Double vision HEENT: Denies: Head Aches, Sinus Congestion, Sinus Drainage Cardiovascular: Denies: Chest Pain, Palpitations Respiratory: Reports: Shortness of Breath, Wheezing Gastrointestinal: Denies: Abdominal Pain, Nausea, Vomiting Genitourinary: Denies: Dysuria Musculoskeletal: Denies: Joint Pain, Joint Tenderness Skin: Denies: Rash, Wounds Neurological: Denies: Numbness, Tingling, Focal weakness Psychiatric: Denies: Anxiety, Depression, Homicidal Ideations, Suicidal Ideations Hematologic/ Lymphatic: Denies: Easy Bruising, Easy Bleeding Objective: The patient's most recent lab work, culture data and imaging studies have all been personally reviewed. - Physical Exam Vitals/I&O's: Vital Signs Temp Pulse Resp BP Pulse Ox 97.8 F 72 23 H 133/66 H 95 10/04/19 02:11 10/04/19 03:15 10/04/19 03:15 10/04/19 02:11 10/04/19 03:15 Oxygen Delivery Method Room Air Weight: 319 lb 0.142 oz Body Mass Index (BMI) 49.9 Intake and Output for Last 24 Hours 10/02/19 10/03/19 10/04/19 23:59 23:59 23:59 Intake Total 837.5 / 837.5 Output Total 150 / 150 Balance 687.5 / 687.5 General: Alert, Oriented x3, Cooperative HEENT: Atraumatic, PERRLA, Normocephalic Oral: No Gingival or Mucosal Lesions/ Ulcerations Neck: Supple, No Nodes, Trachea Midline Lungs: Normal air movement, - - Mild expiratory wheezes Cardiovascular: Regular rate, Regular Rhythm, Normal S1, Normal S2, No murmurs Abdomen: Bowel Sounds Present, Soft, Non Tender, Obese Extremities: - - s/p BKA Skin: No breakdown Musculoskeletal: No Tenderness to Palpation of Joints or Extremities Lymphatic: No Cervical, Supraclavicular, or Inguinal Adenopathy Neurological: Cranial nerves II-XII grossly intact, Neuro grossly intact Psych/Mental Status: Alert and oriented to time, place, person, mood and affect Labs (Last 48 Hours) 10/03/19 10/03/19 10/03/19 16:05 16:05 16:11 WBC Cancelled Corrected WBC Cancelled RBC Cancelled Hgb Cancelled Hct Cancelled MCV Cancelled MCH Cancelled MCHC Cancelled RDW Std Deviation Cancelled RDW Coeff of Naga Cancelled Plt Count Cancelled MPV Cancelled Immature Gran % (Auto) Cancelled Neut % (Auto) Cancelled Lymph % (Auto) Cancelled Saunders % (Auto) Cancelled Eos % (Auto) Cancelled Baso % (Auto) Cancelled Absolute Neuts (auto) Cancelled Absolute Lymphs (auto) Cancelled Total Counted Cancelled Neutrophils % (Manual) Cancelled Band Neutrophils % Cancelled Lymphocytes % (Manual) Cancelled Monocytes % (Manual) Cancelled Eosinophils % (Manual) Cancelled Basophils % (Manual) Cancelled Metamyelocytes % Cancelled Myelocytes % Cancelled Promyelocytes % Cancelled Blast Cells % Cancelled Plasma Cell % (Manual) Cancelled Other Cells % Cancelled Nucleated RBC % Cancelled Nucleated RBCs/100 WBC Cancelled Differential Comment Cancelled Diff Path Review Cancelled Hypersegmented Neuts Cancelled Atypical Lymphocytes Cancelled Reactive Lymphocytes Cancelled Smudge Cells Cancelled Toxic Granulation Cancelled Toxic Vacuolation Cancelled Dohle Bodies Cancelled Santos Rods Cancelled Platelet Estimate Cancelled Plt Morphology Comment Cancelled RBC Morphology Cancelled Polychromasia Cancelled Hypochromasia Cancelled Poikilocytosis Cancelled Basophilic Stippling Cancelled Anisocytosis Cancelled Microcytosis Cancelled Macrocytosis Cancelled Spherocytes Cancelled Sickle Cells Cancelled Target Cells Cancelled Tear Drop Cells Cancelled Ovalocytes Cancelled Stomatocytes Cancelled Sandoval-Norvelt Bodies Cancelled Daria Cells Cancelled Bite Cells Cancelled Crenated Cell Cancelled Acanthocytes (Spur) Cancelled Rouleaux Cancelled Schistocytes Cancelled D-Dimer Quant (PE/DVT) 0.45 Sodium 140 Potassium 3.8 Chloride 110 H Carbon Dioxide 20.0 L Anion Gap 10 BUN 14 Creatinine 0.89 Estim Creat Clear Calc 151.14 Est GFR (MDRD) Af Amer 83 Est GFR (MDRD) Non-Af 69 BUN/Creatinine Ratio 15.8 Glucose 109 H Calcium 8.6 Troponin I < 0.015 10/03/19 16:15 WBC 14.3 H Corrected WBC RBC 4.75 Hgb 12.4 Hct 39.2 MCV 82.5 MCH 26.1 L MCHC 31.6 L RDW Std Deviation 53.4 H RDW Coeff of Naga 18.2 H Plt Count 273 MPV 11.0 Immature Gran % (Auto) 0.900 Neut % (Auto) 78.1 H Lymph % (Auto) 11.9 L Saunders % (Auto) 8.0 Eos % (Auto) 0.8 Baso % (Auto) 0.3 Absolute Neuts (auto) 11.1 H Absolute Lymphs (auto) 1.70 Total Counted Neutrophils % (Manual) Band Neutrophils % Lymphocytes % (Manual) Monocytes % (Manual) Eosinophils % (Manual) Basophils % (Manual) Metamyelocytes % Myelocytes % Promyelocytes % Blast Cells % Plasma Cell % (Manual) Other Cells % Nucleated RBC % 0 Nucleated RBCs/100 WBC Differential Comment Diff Path Review Hypersegmented Neuts Atypical Lymphocytes Reactive Lymphocytes Smudge Cells Toxic Granulation Toxic Vacuolation Dohle Bodies Santos Rods Platelet Estimate Plt Morphology Comment RBC Morphology Polychromasia Hypochromasia Poikilocytosis Basophilic Stippling Anisocytosis Microcytosis Macrocytosis Spherocytes Sickle Cells Target Cells Tear Drop Cells Ovalocytes Stomatocytes Sandoval-Norvelt Bodies Comfort Cells Bite Cells Crenated Cell Acanthocytes (Spur) Rouleaux Schistocytes D-Dimer Quant (PE/DVT) Sodium Potassium Chloride Carbon Dioxide Anion Gap BUN Creatinine Estim Creat Clear Calc Est GFR (MDRD) Af Amer Est GFR (MDRD) Non-Af BUN/Creatinine Ratio Glucose Calcium Troponin I Microbiology 10/03/19 16:10 Mucosa - Nose Rapid RSV (DFA) - Final 10/03/19 16:10 Mucosa - Nose Influenza Types A,B Direct FA (MCKAYLA) - Final Clinical Impression(s) from Imaging Studies Chest X-Ray 10/03/19 15:45 IMPRESSION: Calcified plaques in the aortic arch. No acute cardiopulmonary disease process is seen. Electronically Signed: Wilfrid Floyd MD at 16:10 EST , Service support , Current Medications Acetaminophen (Tylenol) 650 mg PO Q6H PRN PRN PRN Reason: Non-cardiac pain (-07/10) Last Admin: 10/04/19 04:54 Dose: 650 mg Documented by: Al Hydroxide/Mg Hydroxide (Mylanta Ii) 15 - 30 ml PO Q4H PRN PRN PRN Reason: INDIGESTION Albuterol Sulfate (Ventolin Aerosols) 2.5 mg INHALATION Q2H PRN PRN PRN Reason: dyspnea, wheezing Albuterol/Ipratropium (Duoneb) 3 ml INHALATION Q4HWA.RT [facility] Last Admin: 10/04/19 07:06 Dose: 3 ml Documented by: Amoxicillin/Clavulanate Potassium (Augmentin Tablet) 875 mg PO BIDCM [facility] Last Admin: 01/03/20 21:35 Dose: 875 mg Documented by: Citalopram Hydrobromide (Celexa) 40 mg PO DAILY [facility] Cyclobenzaprine HCl (Flexeril) 10 mg PO QHS [facility] Last Admin: 10/03/19 21:35 Dose: 10 mg Documented by: Enoxaparin Sodium (Lovenox) 40 mg SC DAILY [facility] Furosemide (Lasix) 40 mg PO BID PRN PRN PRN Reason: FLUID OVERLOAD Gabapentin (Neurontin) 900 mg PO BREAKFAST [facility] Gabapentin (Neurontin) 600 mg PO QHS [facility] Last Admin: 10/03/19 21:36 Dose: 600 mg Documented by: Glucagon () 1 mg IM .X1 PRN PRN Reason: Hypoglycemia Guaifenesin (Robitussin) 20 ml PO Q4H PRN PRN PRN Reason: COUGH Hydralazine HCl (Apresoline Iv) 10 mg IV Q4H PRN PRN PRN Reason: SBP > 160 Sodium Chloride () 1,000 mls @ 125 mls/hr IV .Q8H [facility] Last Admin: 10/04/19 04:16 Dose: 125 mls/hr Documented by: Dextrose (Dextrose 10%-Water) 250 mls @ 999 mls/hr IV .Q16M PRN; Protocol PRN Reason: HYPOGLYCEMIA Magnesium Hydroxide (Milk Of Magnesia) 30 ml PO DAILY PRN PRN Reason: Constipation Melatonin (Melatonin) 3 mg PO QHS PRN PRN PRN Reason: INSOMNIA Meloxicam (Mobic) 7.5 mg PO BID [facility] Last Admin: 10/03/19 21:36 Dose: 7.5 mg Documented by: Methylprednisolone (Solu-Medrol) 40 mg IV Q8 [facility] Last Admin: 10/04/19 04:55 Dose: 40 mg Documented by: Montelukast Sodium (Singulair) 10 mg PO DAILY [facility] Ondansetron HCl (Zofran) 4 mg IV Q8H PRN PRN PRN Reason: NAUSEA/VOMITING Oxycodone HCl (Oxyir) 5 mg PO QHS PRN PRN PRN Reason: Pain Score 1-10/10 Pantoprazole Sodium (Protonix) 40 mg PO DAILY [facility] Potassium Chloride (K-Dur) 40 meq PO DAILY@0800 [facility] Pramipexole Dihydrochloride (Mirapex) 1 mg PO QHS [facility] Last Admin: 10/03/19 21:36 Dose: 1 mg Documented by: Ramipril (Altace) 5 mg PO DAILY [facility] Sodium Chloride () 10 - 40 ml IV UD PRN PRN Reason: SALINE FLUSH Last Admin: 10/04/19 04:55 Dose: 10 ml Documented by: Throat Lozenges (Cepacol Sore Throat Lozenge) 1 lozenge MUCOUS MEM Q2H PRN PRN PRN Reason: Sore throat or cough Assessment/Plan All Active Problems Bronchospasm (Acute) Asthma exacerbation (Acute) RECOMMENDATIONS: 1. Continue Augmentin. 2. Transition to prednisone 40 mg daily with plans for a 5-day burst. 3. Resume baseline maintenance and as needed inhaler regimen at discharge. 4. Follow-up in the pulmonary medicine clinic within 2 weeks of discharge from the hospital. 5. Continue nocturnal BiPAP therapy per home regimen. IMPRESSIONS: 1. Asthma exacerbation potentially secondary to upper respiratory infection The patient is currently on Augmentin, scheduled bronchodilators and IV steroids. Her breathing quality has significantly improved. Accordingly, I would recommend transitioning her to prednisone with plans for a 5-day burst at discharge. The patient was instructed to follow-up in the pulmonary medicine clinic within 2 weeks of discharge. Repeat outpatient PFTs and an office exhaled nitric oxide testing will be completed. Continue baseline maintenance and PRN inhalers at discharge. 2. Known obstructive sleep apnea Continue nocturnal BiPAP therapy with supplemental oxygen bleed as per baseline regimen. 3. Obesity/GERD/chronic pain syndrome/hypertension Complicates care, management, recovery and prognosis. Continue home medications as indicated. This note was generated with [employer] dictation software. It may contain incorrect words, spelling, and punctuation that were not noted in checking the note before signing. Code Visit Inpatient E&M: 05828 Init Hosp L2
--- NOTE | 2019-10-04 08:16 | NURSING ---
dr. rader in with pt at this time
[2019-10-04] MEDS: Ramipril 5 MG Capsule PO (08:39)
[2019-10-04] MEDS: Pantoprazole Sodium 40 MG Tablet PO (08:39)
[2019-10-04] MEDS: Citalopram 40 MG TABLET PO (08:39)
[2019-10-04] MEDS: Montelukast 10 MG Tablet PO (08:39)
[2019-10-04] MEDS: Amox/Clavulanate 875 MG Tablet PO (08:39)
[2019-10-04] MEDS: Gabapentin 300 MG Capsule 900 MG PO (08:39)
[2019-10-04] MEDS: Meloxicam 7.5 MG Tablet PO (08:39)
--- NOTE | 2019-10-04 08:44 | PCM.DC ---
- Discharge Diagnoses Current Active Problems: Current Active and Chronic Problems Anxiety and depression (Chronic) You will use the following diet at home:: No restrictions Your food should be the consistency of: Regular Discharge Activity: Return to Normal Activity Allergies/Adverse Reactions: Allergies amlodipine Adverse Reaction (Verified 09/20/19 17:06) Swelling Medications to take at Discharge Meloxicam 7.5 mg PO BID 01/16/14 Montelukast [Singulair] 10 mg PO DAILY 01/16/14 cycloBENZAPRine HCl [Flexeril] 10 mg PO QHS 06/06/14 Omeprazole [Prilosec] 40 mg PO DAILY 07/12/15 Gabapentin [Neurontin] 900 mg PO BREAKFAST 01/13/17 Furosemide [Lasix] 40 mg PO BID PRN 06/13/17 Citalopram [Celexa] 40 mg PO DAILY 08/25/18 Potassium Chloride [K-Dur] 40 meq PO DAILY 11/01/18 Gabapentin 600 mg PO QHS 09/20/19 Oxycodone HCl/Acetaminophen [Percocet 5-325] 1 tab PO QHS PRN PRN 09/20/19 Ramipril 5 mg PO DAILY 09/21/19 Albuterol IH (ProAir) [Proair Hfa] 1 - 2 puff INHALATION Q6H PRN PRN #1 inhaler 09/22/19 Pramipexole Di-HCl [Mirapex] 1 mg PO QHS #1 tab 09/22/19 Prednisone 40 mg PO DAILY #10 tab 10/04/19 The following prescriptions were given: Prednisone 40 mg PO DAILY #10 tab Transmission Status: Pending to [facility] Primary Care Physician: Butch Maddox, [employer] HARVE[employer] OPERATOR-C [Primary Care Provider] - Please follow up with your Primary Care Physician in: in 3-5 days Test Results: Test results from this visit will be discussed in further detail at your follow-up appointment, if applicable. Please Follow Up With: Ventura Lo DO When: call for appointment Proposed Discharge Date: 10/04/19
[2019-10-04 08:46] LABS: Absolute Lymphocyte Count 1.22 X10^3/uL (0.83-4.51); Absolute Neutrophil Count 15.1 X10^3/uL (2.0-7.7); Basophil# 0.04 X10^3/uL; Basophil% 0.2 % (0-1); Hematocrit 39.3 % (37-47); Hemoglobin 12.3 g/dL (12.0-15.0); Lymphocyte # 1.22 X10^3/ul (4.0); Lymphocyte % 7.2 % (19-41); Mean Corp Hgb Conc 31.3 g/dL (32-36); Mean Corpuscular Hgb 25.9 pg (27.0-32.0); Mean Corpuscular Volume 82.9 fL (81-99); Mean Platelet Vol. 11.2 fl (6.2-12.0); Monocyte# 0.24 X10^3/uL; Monocyte% 1.4 % (0-10); NRBC Flagged by Analyzer 0 % (0-5); Neutrophil # 15.11 X10^3/uL (2.7-7.7); Neutrophil % 89.9 % (47-70); Platelet Count 272 K/mm3 (150-450); RBC Distribution Width CV 18.6 % (11.6-14.6); RBC Distribution Width SD 54.9 fl (35.1-43.9); Red Blood Count 4.74 M/mm3 (4.2-5.4); White Blood Count 16.8 K/mm3 (4.4-11.0)
--- NOTE | 2019-10-04 08:47 | PCM.DC.SUM ---
Discharge Date and Diagnosis Date of Admission: 10/03/19 Date of Discharge: 10/04/19 - Primary Discharge Diagnosis Acute asthma exacerbation - Secondary Discharge Diagnosis Chronic Problems Anxiety and depression (Chronic) Anxiety (Chronic) Asthma (Chronic) Benign essential HTN (Chronic) Reflex sympathetic dystrophy (Chronic) Fibromyalgia (Chronic) Morbid obesity (Chronic) Obstructive sleep apnea (Chronic) Restless leg syndrome (Chronic) Family history of diabetes mellitus (DM) (Chronic) Hospital Course and Treatment Imaging Results: Clinical Impression(s) from Imaging Studies Chest X-Ray 10/03/19 15:45 IMPRESSION: Calcified plaques in the aortic arch. No acute cardiopulmonary disease process is seen. Electronically Signed: Wilfrid Floyd MD at 16:10 EST , Service support , Operations: None Summary of Care Provided: The patient is a 59 year old F admitted with progressive shortness of breath and assessment of acute exacerbation having failed outpatient treatment made admitted to regular nursing floor for further management 1. Acute asthma exacerbation patient was admitted to regular nursing floor managed with systemic steroid, aerosol treatments and supplemental oxygen. Consult was also placed to pulmonary medicine patient was seen by Dr. Lo with plans for patient to follow-up with him as outpatient. Patient was expected to stay for at least 2 midnight given her presentation however she did experience rather unexpected rapid recovery was therefore discharged home after 1 day 2. Obstructive sleep apnea patient is on BiPAP at night 3. History of right BKA 4. Restless leg syndrome patient is on Mirapex 5. GERD patient is on PPI did continue 6. Morbid obesity with BMI of 50 weight loss advised 7. Essential hypertension; did continue home medication 8. Depression with anxiety patient is on SSRI did continue 9. Allergic rhinitis patient is on singular Objective: GENERAL: cooperative HEENT: Atraumatic; EYES; Anicteric, Normal Conjunctiva NECK; supple, normal thyroid, RESPIRATORY: Diminished to auscultation CARDIOVASCULAR: Regular S1 S2, GI: soft, normoactive bowel sounds, : No Renal angle tenderness; EXTREMITIES: No edema, no clubbing, MUSCULOSKELETAL: Right BKA NEURO: Awake; no lateralizing signs. SKIN: No Rash PSYCH; Flat affect - Physical Exam Vitals/I&O's: Vital Signs Temp Pulse Resp BP Pulse Ox 97.8 F 87 18 155/58 H 95 10/04/19 08:11 10/04/19 08:11 10/04/19 08:11 10/04/19 08:11 10/04/19 08:26 Oxygen Delivery Method Room Air Weight: 144.7 kg Body Mass Index (BMI) 49.9 Intake and Output for Last 24 Hours 10/02/19 10/03/19 10/04/19 23:59 23:59 23:59 Intake Total 1356.25 / 1356.25 Output Total 150 / 150 Balance 1206.25 / 1206.25 Microbiology Past 72 Hours 10/03/19 16:10 Mucosa - Nose Rapid RSV (DFA) - Final 10/03/19 16:10 Mucosa - Nose Influenza Types A,B Direct FA (MCKAYLA) - Final Laboratory Results 10/03/19 16:05: WBC Cancelled, Corrected WBC Cancelled, RBC Cancelled, Hgb Cancelled, Hct Cancelled, MCV Cancelled, MCH Cancelled, MCHC Cancelled, RDW Std Deviation Cancelled, RDW Coeff of Naga Cancelled, Plt Count Cancelled, MPV Cancelled, Immature Gran % (Auto) Cancelled, Neut % (Auto) Cancelled, Lymph % (Auto) Cancelled, [place] % (Auto) Cancelled, Eos % (Auto) Cancelled, Baso % (Auto) Cancelled, Absolute Neuts (auto) Cancelled, Absolute Lymphs (auto) Cancelled, Total Counted Cancelled, Neutrophils % (Manual) Cancelled, Band Neutrophils % Cancelled, Lymphocytes % (Manual) Cancelled, Monocytes % (Manual) Cancelled, Eosinophils % (Manual) Cancelled, Basophils % (Manual) Cancelled, Metamyelocytes % Cancelled, Myelocytes % Cancelled, Promyelocytes % Cancelled, Blast Cells % Cancelled, Plasma Cell % (Manual) Cancelled, Other Cells % Cancelled, Nucleated RBC % Cancelled, Nucleated RBCs/100 WBC Cancelled, Differential Comment Cancelled, Diff Path Review Cancelled, Hypersegmented Neuts Cancelled, Atypical Lymphocytes Cancelled, Reactive Lymphocytes Cancelled, Smudge Cells Cancelled, Toxic Granulation Cancelled, Toxic Vacuolation Cancelled, Dohle Bodies Cancelled, Santos Rods Cancelled, Platelet Estimate Cancelled, Plt Morphology Comment Cancelled, RBC Morphology Cancelled, Polychromasia Cancelled, Hypochromasia Cancelled, Poikilocytosis Cancelled, Basophilic Stippling Cancelled, Anisocytosis Cancelled, Microcytosis Cancelled, Macrocytosis Cancelled, Spherocytes Cancelled, Sickle Cells Cancelled, Target Cells Cancelled, Tear Drop Cells Cancelled, Ovalocytes Cancelled, Stomatocytes Cancelled, [place] Bodies Cancelled, Daria Cells Cancelled, Bite Cells Cancelled, Crenated Cell Cancelled, Acanthocytes (Spur) Cancelled, Rouleaux Cancelled, Schistocytes Cancelled 10/03/19 16:05: Sodium 140, Potassium 3.8, Chloride 110 H, Carbon Dioxide 20.0 L, Anion Gap 10, BUN 14, Creatinine 0.89, Estim Creat Clear Calc 151.14, Est GFR (MDRD) Af Amer 83, Est GFR (MDRD) Non-Af 69, BUN/Creatinine Ratio 15.8, Glucose 109 H, Calcium 8.6, Troponin I < 0.015 10/03/19 16:11: D-Dimer Quant (PE/DVT) 0.45 10/03/19 16:15: WBC 14.3 H, RBC 4.75, Hgb 12.4, Hct 39.2, MCV 82.5, MCH 26.1 L, MCHC 31.6 L, RDW Std Deviation 53.4 H, RDW Coeff of Naga 18.2 H, Plt Count 273, MPV 11.0, Immature Gran % (Auto) 0.900, Neut % (Auto) 78.1 H, Lymph % (Auto) 11.9 L, [place] % (Auto) 8.0, Eos % (Auto) 0.8, Baso % (Auto) 0.3, Absolute Neuts (auto) 11.1 H, Absolute Lymphs (auto) 1.70, Nucleated RBC % 0 10/04/19 07:57: Sodium Pending, Potassium Pending, Chloride Pending, Carbon Dioxide Pending, Anion Gap Pending, BUN Pending, Creatinine Pending, Est GFR (MDRD) Af Amer Pending, Est GFR (MDRD) Non-Af Pending, BUN/Creatinine Ratio Pending, Glucose Pending, Calcium Pending 10/04/19 07:57: WBC Pending, RBC Pending, Hgb Pending, Hct Pending, MCV Pending, MCH Pending, MCHC Pending, RDW Std Deviation Pending, RDW Coeff of Naga Pending, Plt Count Pending, Neut % (Auto) Pending, Absolute Neuts (auto) Pending Current Medications Acetaminophen (Tylenol) 650 mg PO Q6H PRN PRN PRN Reason: Non-cardiac pain (-07/10) Last Admin: 10/04/19 04:54 Dose: 650 mg Documented by: Al Hydroxide/Mg Hydroxide (Mylanta Ii) 15 - 30 ml PO Q4H PRN PRN PRN Reason: INDIGESTION Albuterol Sulfate (Ventolin Aerosols) 2.5 mg INHALATION Q2H PRN PRN PRN Reason: dyspnea, wheezing Albuterol/Ipratropium (Duoneb) 3 ml INHALATION Q4HWA.RT [facility] Last Admin: 10/04/19 07:06 Dose: 3 ml Documented by: Amoxicillin/Clavulanate Potassium (Augmentin Tablet) [facility] Last Admin: 10/04/19 08:39 Dose: 875 mg Documented by: Citalopram Hydrobromide (Celexa) 40 mg PO DAILY [facility] Last Admin: 10/04/19 08:39 Dose: 40 mg Documented by: Cyclobenzaprine HCl (Flexeril) 10 mg PO QHS [facility] Last Admin: 10/03/19 21:35 Dose: 10 mg Documented by: Enoxaparin Sodium (Lovenox) 40 mg SC DAILY [facility] Furosemide (Lasix) 40 mg PO BID PRN PRN PRN Reason: FLUID OVERLOAD Gabapentin (Neurontin) 900 mg PO BREAKFAST [facility] Last Admin: 10/04/19 08:39 Dose: 900 mg Documented by: Gabapentin (Neurontin) 600 mg PO QHS [facility] Last Admin: 10/03/19 21:36 Dose: 600 mg Documented by: Glucagon () 1 mg IM .X1 PRN PRN Reason: Hypoglycemia Guaifenesin (Robitussin) 20 ml PO Q4H PRN PRN PRN Reason: COUGH Hydralazine HCl (Apresoline Iv) 10 mg IV Q4H PRN PRN PRN Reason: SBP > 160 Dextrose (Dextrose 10%-Water) 250 mls @ 999 mls/hr IV .Q16M PRN; Protocol PRN Reason: HYPOGLYCEMIA Magnesium Hydroxide (Milk Of Magnesia) 30 ml PO DAILY PRN PRN Reason: Constipation Melatonin (Melatonin) 3 mg PO QHS PRN PRN PRN Reason: INSOMNIA Meloxicam (Mobic) 7.5 mg PO BID [facility] Last Admin: 10/04/19 08:39 Dose: 7.5 mg Documented by: Methylprednisolone (Solu-Medrol) 40 mg IV Q8 [facility] Last Admin: 10/04/19 04:55 Dose: 40 mg Documented by: Montelukast Sodium (Singulair) 10 mg PO DAILY [facility] Last Admin: 10/04/19 08:39 Dose: 10 mg Documented by: Ondansetron HCl (Zofran) 4 mg IV Q8H PRN PRN PRN Reason: NAUSEA/VOMITING Oxycodone HCl (Oxyir) 5 mg PO QHS PRN PRN PRN Reason: Pain Score 1-10/10 Pantoprazole Sodium (Protonix) 40 mg PO DAILY [facility] Last Admin: 10/04/19 08:39 Dose: 40 mg Documented by: Potassium Chloride (K-Dur) 40 meq PO DAILY@0800 [facility] Last Admin: 10/04/19 08:39 Dose: 40 meq Documented by: Pramipexole Dihydrochloride (Mirapex) 1 mg PO QHS [facility] Last Admin: 10/03/19 21:36 Dose: 1 mg Documented by: Ramipril (Altace) 5 mg PO DAILY [facility] Last Admin: 10/04/19 08:39 Dose: 5 mg Documented by: Sodium Chloride () 10 - 40 ml IV UD PRN PRN Reason: SALINE FLUSH Last Admin: 10/04/19 04:55 Dose: 10 ml Documented by: Throat Lozenges (Cepacol Sore Throat Lozenge) 1 lozenge MUCOUS MEM Q2H PRN PRN PRN Reason: Sore throat or cough Discharge Diet: No Restrictions Discharge Activity: Return to Normal Activity Home Medications: Medications to take at Discharge Meloxicam 7.5 mg PO BID 01/16/14 Montelukast [Singulair] 10 mg PO DAILY 01/16/14 cycloBENZAPRine HCl [Flexeril] 10 mg PO QHS 06/06/14 Omeprazole [Prilosec] 40 mg PO DAILY 07/12/15 Gabapentin [Neurontin] 900 mg PO BREAKFAST 01/13/17 Furosemide [Lasix] 40 mg PO BID PRN 06/13/17 Citalopram [Celexa] 40 mg PO DAILY 08/25/18 Potassium Chloride [K-Dur] 40 meq PO DAILY 11/01/18 Gabapentin 600 mg PO QHS 09/20/19 Oxycodone HCl/Acetaminophen [Percocet 5-325] 1 tab PO QHS PRN PRN 09/20/19 Ramipril 5 mg PO DAILY 09/21/19 Albuterol IH (ProAir) [Proair Hfa] 1 - 2 puff INHALATION Q6H PRN PRN #1 inhaler 09/22/19 Pramipexole Di-HCl [Mirapex] 1 mg PO QHS #1 tab 09/22/19 Prednisone 40 mg PO DAILY #10 tab 10/04/19 Following Prescrptions Were Given to Patient: Prednisone 40 mg PO DAILY #10 tab Transmission Status: Pending to [facility] Primary Care Physician: Butch Maddox, PSYCH THERAPIST-C [Primary Care Provider] - Please follow up with your Primary Care Physician in: in 3-5 days Please Follow Up With: Ventura Lo DO When: call for appointment Disposition: Home Minutes spent on discharge:: 35 Patient Condition:: Stable Medical Necessity - Tobacco Use Smoking Status: Former smoker - Patient quit cigarette tobacco usage in 1999 and notes only a 1 year history of tobacco use. Tobacco Use: Cigarettes Meaningful Use Info Meaningful Use Diagnoses (Choose all that apply): None applicable Code Visit Inpatient E&M: 94388 Disch Hosp
[2019-10-04 09:10] LABS: Anion Gap 9 (5-15); BUN 17 mg/dL (7-18); BUN/Creat Ratio 19.1 RATIO (10-20); Calcium,Total 8.8 mg/dL (8.5-10.1); Chloride 107 mmol/L (98-107); Creatinine, Serum 0.89 mg/dL (0.55-1.02); EST Glomerular Filtration Rate 69 mL/min (>60); Est Glom Filt Rate - Afr Amer 83 mL/min (>60); Estimated Creatinine Clearance 65.37 ml/min; Glucose 193 mg/dL (74-106); Potassium 3.9 mmol/L (3.5-5.1); Sodium Level 138 mmol/L (136-145)
[2019-10-04] MEDS: Ibuprofen 400 MG Tablet PO (11:06)
[2019-10-04] MEDS: guaiFENesin 10 ML UDC (200MG/10ML) 20 ML PO (11:26)
--- NOTE | 2019-10-06 15:06 | CASEMGMT ---
[facility] PHONE CALL DC DATE: 10.04.2019 DC Disposition: Home Diagnosis on Discharge: Asthma Exacerbation LACE/STRATA: 06/03 Message machine had name identifier. Message left with call back information if pt had questions re: instructions, medications or f/u. A.Elvie BSN RN AC
== END 2019-10-04 13:48 | disposition home or self-care (01) | DRG 202 ==
LOC: ED 16:06 → MS3 19:01
PROVIDERS: Admitting Provider Family Medicine; Emergency Provider Emergency Medicine; Family Provider Nurse Practitioner Family; PCP Nurse Practitioner Family; Visit Provider Internal Medicine
DX: J45.901 Unspecified asthma with (acute) exacerbation (principal); G90.50 Complex regional pain syndrome I, unspecified; Z68.42 Body mass index [BMI] 45.0-49.9, adult; G25.81 Restless legs syndrome; E66.01 Morbid (severe) obesity due to excess calories; G47.33 Obstructive sleep apnea (adult) (pediatric); H66.92 Otitis media, unspecified, left ear; I10 Essential (primary) hypertension; K21.9 Gastro-esophageal reflux disease without esophagitis; G89.4 Chronic pain syndrome; G62.9 Polyneuropathy, unspecified; M79.7 Fibromyalgia; Z87.891 Personal history of nicotine dependence; Z89.511 Acquired absence of right leg below knee; F41.8 Other specified anxiety disorders; Z83.3 Family history of diabetes mellitus
CPT/HCPCS: 36415; 71045; 80048; 84484; 85025; 85379; 87070; 87205; 87804; 87807; 93005; 94002; 94640; 99285; J7030; A4216

== ENCOUNTER → 2019-10-13 09:05 | Outpatient (CLI) | payer MEDICARE, SELFPAY ==
[2019-10-13 08:06] VITALS: BMI 49.9
[2019-10-13 09:41] LABS: Anion Gap 5 (5-15); BUN 14 mg/dL (7-18); BUN/Creat Ratio 18.1 RATIO (10-20); Chloride 107 mmol/L (98-107); Creatinine, Serum 0.77 mg/dL (0.55-1.02); EST Glomerular Filtration Rate 81 mL/min (>60); Est Glom Filt Rate - Afr Amer 98 mL/min (>60); Glucose 91 mg/dL (74-106); Potassium 4.2 mmol/L (3.5-5.1); Sodium Level 139 mmol/L (136-145)
[2019-10-13 09:52] LABS: BNP,B-Type NATRIURETIC PEPTIDE 57.3 pg/mL (0-100)
== END ==
LOC: LAB 09:07
PROVIDERS: Family Provider Nurse Practitioner Family; PCP Nurse Practitioner Family; Referring Provider Nurse Practitioner Acute Care; Visit Provider Nurse Practitioner Acute Care
DX: R06.02 Shortness of breath (principal)
CPT/HCPCS: 36415; 80048; 83880

== ENCOUNTER → 2019-11-07 12:39 | Outpatient (CLI) | payer MEDICARE, SELFPAY ==
[2019-10-13 08:06] VITALS: BMI 49.9
--- NOTE | 2019-11-07 15:21 | PFTCOMP_ITS ---
COMPLETE PULMONARY FUNCTION TEST INTERPRETATION Brief HPI: Patient is a 59 year old female, currently under the care of Dr. Lo, who presents to [facility] for complete pulmonary function tests secondary to diagnosis of asthma. Respiratory therapist reports good effort and reproducible results. Interpretation: Forced expiration spirometry shows no large airways obstructive ventilatory defect with an FEV1 of 91% predicted. There is no significant bronchodilator response by strict ATS criteria. Spirograms are of good quality and plateau normally. The respiratory flow volume loop shows a normal pattern. Lung volumes by body plethysmography show a normal total lung capacity at 5.48 L, 100% predicted. All other lung volumes are within normal limits. Diffusion capacity by carbon monoxide is normal at 76% predicted. The airway resistance is normal. No previous pulmonary function tests were available for review. Impression: These pulmonary function tests are within normal limits.
== END ==
LOC: PSN 12:40
PROVIDERS: Family Provider Nurse Practitioner Family; PCP Nurse Practitioner Family; Referring Provider Nurse Practitioner Acute Care; Visit Provider Nurse Practitioner Acute Care
DX: J45.909 Unspecified asthma, uncomplicated (principal)
CPT/HCPCS: 94060; 94726; 94729

== ENCOUNTER → 2019-11-17 08:19 | Outpatient (CLI) | payer MEDICARE, SELFPAY ==
[2019-11-17 07:31] VITALS: BMI 51.7
== END ==
PROVIDERS: PCP Nurse Practitioner Family; Referring Provider Nurse Practitioner Acute Care; Visit Provider Nurse Practitioner Acute Care
DX: R05 Cough (principal)
CPT/HCPCS: 87070; 87205

== ENCOUNTER 2019-12-04 13:48 | Emergency (ER) | payer MEDICARE, SELFPAY ==
[2019-12-04 13:17] VITALS: BMI 51.7
[2019-12-04 13:49] VITALS: BP 147/82; PULSE 87; RESP 16; TEMP 37; O2SAT 98; BMI 51.7
--- NOTE | 2019-12-04 14:46 | RAD_ITS ---
STUDY: X-RAY CHEST REASON FOR EXAM: Female, 59 years old. INCREASED SOB, ASTHMA TECHNIQUE: Single AP portable upright view of the chest. COMPARISON: Portable AP upright chest x-ray October 03, 2019 FINDINGS: The lungs are clear and expanded. There is no demonstrated pleural abnormality. Normal size heart. Normal mediastinum and jimmy. Normal visualized pulmonary arteries. Normal visualized aortic arch and descending thoracic aorta. Poorly visualized thoracic spine. Markers of a spinal stimulator again seen at the T9 level. Normal visualized ribs, clavicles, and shoulders. There is no demonstrated abnormality of the visualized soft tissue structures of the upper abdomen. RAD/Chest 1 View (Portable) IMPRESSION: No acute cardiopulmonary disease. Electronically Signed: Gulshan Edmonds MD at 15:23 EST , Service support ,
--- NOTE | 2019-12-04 14:46 | EKG12_ITS ---
Test Reason : SON HASSTIMULATOR Blood Pressure : / mmHG Vent. Rate : 084 BPM Atrial Rate : 084 BPM P-R Int : 122 ms QRS Dur : 064 ms QT Int : 342 ms P-R-T Axes : 029 006 063 degrees QTc Int : 404 ms Suspect unspecified pacemaker failure Normal sinus rhythm Moderate voltage criteria for LVH, may be normal variant Consider right ventricular involvement in acute inferior infarct Abnormal ECG Confirmed by RASHEL BORDEN, STEWART ([id number]), non linear editor DEJAH JONES ([id number]) on 12/08/2019 3:51:03 PM Referred By: DIANA Confirmed By:STEWART KISER MD
--- NOTE | 2019-12-04 14:48 | ED.DCSUM_ITS ---
- ER Visit Summary Date of Service: 12/04/19 Chief Complaint: Shortness of breath and chronic cough History of Present Illness: The patient is a 59 F 3 of asthma, hypertension, fibromyalgia and sleep apnea for which she wears BiPAP. Patient's had chronic cough and shortness of breath for about 3 months. States is clear phlegm. No hemoptysis. No chest pain. She is never had a DVT or PE. No recent travel or surgery. No left calf pain or swelling. She was hospitalized with the last time was in August. She has had work-ups for this including an echo and stress test all which were negative. Today she saw the nurse practitioner and industrial x ray operator office. The nurse practitioner was concerned this could possibly be a PE and sent her to ER for evaluation. States she took a fall yesterday. She just tripped and stumbled and fell injuring her right shoulder. She wants that evaluated also. Physical Examination: Older female no acute distress vital signs are stable afebrile. Pulse ox 90% on room air no hypoxia. H EENT exam unremarkable. Neck nontender no JVD. Lungs clear to auscultation bilaterally. Heart regular rate and rhythm no murmur rate about 85. Chest wall nontender. Abdomen soft and nontender. Mildly obese. No peritoneal signs. Patient is moving all 4 extremities. She has mild tenderness to her right shoulder. But no gross bony deformity. There is no obvious sign of bony deformity or any signs of dislocation. Her right elbow, forearm wrist and hand are nontender neurovascularly intact. She has normal digital advertising specialist strength and sensation.. Neurovascular intact. Left calf is nontender without edema or cords. Right leg below the knee is amputated. Neurologically she is awake and alert with no focal motor deficits. Test Results: 1 view chest x-ray showed no acute abnormality. Right shoulder x- ray 3 views showed no acute abnormality. Read by myself. No fracture. No dislocation. Normal cardiac silhouette. Normal lung enrique. There were densities in the midline consistent with the spine stimulator markers. Read both by the radiologist to me. EKG shows normal sinus rhythm 84 with no acute signs of either IL or ischemia. No S1 Q3 or T3. CBC normal white count 8. Hemoglobin 12. Electrolytes unremarkable. Troponin normal. D-dimer -0.48. EKG shows a normal sinus rhythm rate 84 with no acute signs of IL or ischemia. Emergency Department Course and Treatment: Patient with shortness of breath. Clinically I do not feel this is a PE. She will undergo cardiac work-up. Clinically does not appear to be cardiac either. She has had reportedly negative stress test and echo. Treatment Plan: Repeat exam patient is doing well. She will be discharged home. We went over all test results. Follow-up with her industrial x ray operator. Disposition: discharge Impression: Dyspnea of uncertain etiology History of asthma. Acute fall with right shoulder contusion This note was generated with [email or web address] dictation software. It may contain incorrect words, spelling, and punctuation that were not noted in review of the chart prior to signing ED Disposition - Plan for ED Patient: Referrals: Butch Maddox, CANDI-C [Primary Care Provider] -
[2019-12-04 14:51] VITALS: O2SAT 96
[2019-12-04 16:00] VITALS: O2SAT 95
[2019-12-04 16:08] LABS: Absolute Lymphocyte Count 1.02 X10^3/uL (0.83-4.51); Absolute Neutrophil Count 6.5 X10^3/uL (2.0-7.7); Basophil# 0.05 X10^3/uL; Basophil% 0.6 % (0-1); Eosinophil# 0.11 X10^3/uL; Eosinophils% 1.4 % (0-5); Hematocrit 40.8 % (37-47); Hemoglobin 12.8 g/dL (12.0-15.0); Lymphocyte # 1.02 X10^3/ul (4.0); Lymphocyte % 12.8 % (19-41); Mean Corp Hgb Conc 31.4 g/dL (32-36); Mean Corpuscular Hgb 26.6 pg (27.0-32.0); Mean Corpuscular Volume 84.6 fL (81-99); Mean Platelet Vol. 11.5 fl (6.2-12.0); Monocyte# 0.22 X10^3/uL; Monocyte% 2.8 % (0-10); NRBC Flagged by Analyzer 0 % (0-5); Neutrophil # 6.52 X10^3/uL (2.7-7.7); Neutrophil % 81.5 % (47-70); Platelet Count 301 K/mm3 (150-450); RBC Distribution Width CV 16.1 % (11.6-14.6); Red Blood Count 4.82 M/mm3 (4.2-5.4)
[2019-12-04 16:22] LABS: D-Dimer Quantitative (DVT/PE) 0.48 FEU/ug/m (0.27-0.49)
[2019-12-04 16:29] LABS: Anion Gap 6 (5-15); BUN 19 mg/dL (7-18); BUN/Creat Ratio 21.9 RATIO (10-20); Calcium,Total 9.4 mg/dL (8.5-10.1); Chloride 108 mmol/L (98-107); Creatinine, Serum 0.87 mg/dL (0.55-1.02); EST Glomerular Filtration Rate 71 mL/min (>60); Est Glom Filt Rate - Afr Amer 86 mL/min (>60); Estimated Creatinine Clearance 66.87 ml/min; Glucose 124 mg/dL (74-106); Potassium 4.5 mmol/L (3.5-5.1); Sodium Level 138 mmol/L (136-145)
--- NOTE | 2019-12-04 17:23 | RAD_ITS ---
STUDY: X-RAY - RIGHT SHOULDER REASON FOR EXAM: Female, 59 years old. Fall last night. Rt shoulder pain. TECHNIQUE: 3 view(s) of the shoulder on 4 images. COMPARISON: None. FINDINGS: Normal glenohumeral alignment. The joint spaces not seen in tangent.. Normal acromioclavicular joint. Normal acromion. There is early degenerative inferior periarticular spurring of the humeral head. The soft tissue structures are unremarkable. There is no demonstrated fracture. Normal visualized pulmonary apex. RAD/Shoulder min 2 Views IMPRESSION: No acute fracture of the right shoulder. Electronically Signed: Gulshan Edmonds MD at 17:42 EST , Service support ,
--- NOTE | 2019-12-04 17:38 | DCINST.ED_ITS ---
ED Disposition - Plan for ED Patient: Disposition: Home or Assisted Living Instructions: ED Dyspnea, Shoulder Contusion Referrals: Butch Maddox, CANDI-C [Primary Care Provider] - 3-5 Days Additional Instructions: History of shoulder. The x-ray was negative. Tylenol or Motrin for pain. Follow-up with your freight air brake fitter. All your blood work, EKG and x-rays were normal today.
[2019-12-04] MEDS: HYDROcodone Bitartrate/Apap 5/325 Tablet PO (17:39)
[2019-12-04 18:18] VITALS: BP 150/92
== END 2019-12-04 18:21 | disposition home or self-care (01) ==
PROVIDERS: Emergency Provider Emergency Medicine; PCP Nurse Practitioner Family
DX: R06.00 Dyspnea, unspecified (principal); J45.909 Unspecified asthma, uncomplicated; S40.011A Contusion of right shoulder, initial encounter; W18.09XA Striking against other object with subsequent fall, initial encounter; Y93.9 Activity, unspecified; Y92.9 Unspecified place or not applicable; Y99.9 Unspecified external cause status; I10 Essential (primary) hypertension; M79.7 Fibromyalgia; G47.30 Sleep apnea, unspecified; F32.9 Major depressive disorder, single episode, unspecified; F41.9 Anxiety disorder, unspecified; Z79.899 Other long term (current) drug therapy
CPT/HCPCS: 71045; 73030; 80048; 84484; 85025; 85379; 93005; 99284; A4216

== ENCOUNTER 2020-01-08 13:52 | Emergency (ER) | payer MEDICARE, SELFPAY ==
[2020-01-08 13:53] VITALS: BP 127/96; PULSE 86; RESP 16; TEMP 36.9; O2SAT 96; BMI 49.3
--- NOTE | 2020-01-08 14:03 | RAD_ITS ---
STUDY: X-RAY CHEST REASON FOR EXAM: Female, 59 years old. Cough x 6 months, HTN, asthma TECHNIQUE: PA and lateral views of the chest. COMPARISON: Comparison is made with prior study December 04, 2019. FINDINGS: The lungs are clear and expanded. Scattered calcified granulomas. There is no demonstrated pleural abnormality. Normal size heart. Normal mediastinum and jimmy. Normal visualized pulmonary arteries. There is atherosclerotic tortuosity of the aortic arch and descending thoracic aorta. There are diffuse degenerative changes of the visualized thoracic spine. Dextroscoliosis. Normal visualized ribs, clavicles, and shoulders. A spinal stimulator device is seen with the tip of the electrodes at the T9 level. RAD/Chest PA and Lateral IMPRESSION: No acute abnormality is seen. Electronically Signed: Sean Cotton, at 14:46 EDT , Service support ,
[2020-01-08] MEDS: Triamcinolone Acetonide 40 MG/ML Vial IM (14:11)
[2020-01-08 14:13] VITALS: BP 127/86; PULSE 86; RESP 20; TEMP 36.9; O2SAT 97
[2020-01-08 14:15] VITALS: PULSE 92; RESP 16
--- NOTE | 2020-01-08 14:51 | ED.VIS.GEN ---
History of Present Illness Chief Complaint: Cough Informant: Patient Onset: Month(s) Maximum Severity: Mild Narrative: Patient presents complaining of cough for six-month asthma, coronavirus?emergency no fever no change in her cough no exposures she is on multiple inhalers at home she indicates she is followed by [facility] the been managing her, she feels she needs steroids as that helps she is eating and drinking well no other complaints, she has no history of [place] PE or DVT her asthma is generally difficult to control Past Medical History - Allergies and Home Meds Allergies/Adverse Reactions: Allergies amlodipine Adverse Reaction (Verified 01/08/20 13:56) Swelling Primary Care Physician: Butch Maddox, CANDI-C [Primary Care Provider] - Past Medical History: - Surgical History: - - Breast reduction surgery, bladder sling, bilateral foot surgery, right foot surgery and right lower extremity surgery x11 with eventual right BKA, hysterectomy, bilateral hip implants with one bladder and the other pain associated, left total knee replacement, tonsillectomy, tummy tuck. Smoking Status: Former smoker - Family History Maternal Family History: Family History (Last Reviewed 11/17/19 @ 07:56 by GINO Hernandez) Mother Hypertension Cancer Diabetes Father Cancer Brother Diabetes Grandfather Diabetes Family History: Reports: Cancer - in her 50s of pancreatic cancer., Diabetes, Heart Disease, Hypertension Paternal Family History: Family History (Last Reviewed 11/17/19 @ 07:56 by GINO Hernandez) Mother Hypertension Cancer Diabetes Father Cancer Brother Diabetes Grandfather Diabetes Family History: Reports: Cancer - in his 70s of pancreatic cancer., Diabetes, Heart Disease, Hypertension Sibling Family History: Family History (Last Reviewed 11/17/19 @ 07:56 by GINO Hernandez) Mother Hypertension Cancer Diabetes Father Cancer Brother Diabetes Grandfather Diabetes Family History: Reports: - - Denies significant sibling history including cardiac history. Review of Systems ROS: - Asthma General: Denies: Chills, Fever, Sweats Eyes: Denies: Visual changes - bilaterally, Diplopia ENT: Denies: Rhinorrhea, Sore throat Cardiovascular: Denies: Chest pain, Palpitations Respiratory: Reports: Cough. Denies: Dyspnea, Dyspnea on exertion Gastrointestinal: Denies: Abdominal pain, Nausea, Vomiting, Diarrhea, Melena, Hematochezia Genitourinary: Denies: Dysuria, Hematuria, Frequency Musculoskeletal: Denies: Back pain, Extremity Pain Skin: Denies: Rash, Wounds Neurological: Denies: Headache, Weakness, Numbness Physical Exam Vital Signs/Narrative: Vital Signs Temp Pulse Resp BP Pulse Ox 01/08/20 14:15 92 16 01/08/20 14:13 98.5 F 86 20 H 127/86 H 97 01/08/20 13:53 98.5 F 86 16 127/96 H 96 General: Well nourished, Well developed, No Acute Distress Head: Normocephalic, Atraumatic Eyes: Perrl, EOMI ENT: Moist mucous membranes, No rhinorrhea Neck: Supple, Nontender Cardiovascular: Regular rate, Regular rhythm, No murmurs Respiratory: No distress, CTA bilaterally, Chest nontender Abdomen: Soft, Nontender, Nondistended, Normal bowel sounds Back: Nontender, Normal Inspection Extremities: Nontender, No edema Skin: Normal color, No rash Neurological: Alert, Oriented x3, Cranial nerves II-XII grossly intact, Normal Strength, Normal Sensation Psychological: Normal affect, Normal Mood Diagnostic/Tx/Re-eval - Medical Decision Making The patient's physical exam is unremarkable the pulse ox is 98% the lungs are clear she is been treated with aggressive hand-held nebulizer therapy IM Kenalog, chest x-ray shows nothing acute, we did attempt to contact on that family physicians they were not available patient's resting company bed no distress at this time she is comfortable discharge home she received IM Kenalog she has all her inhalers she has no coronavirus risk factors as a precaution she was given instructions for coronavirus and should follow-up with her outpatient providers Home stable Final impression chronic cough exacerbation of asthma improved ED Disposition - Plan for ED Patient: Diagnosis: Asthma exacerbation Instructions: ED Bronchitis Asthmatic Referrals: Butch Maddox, CANDI-C [Primary Care Provider] -
[2020-01-08 15:21] VITALS: BP 135/76; PULSE 91; RESP 20; O2SAT 93
== END 2020-01-08 15:22 | disposition home or self-care (01) ==
LOC: ED 14:52
PROVIDERS: Emergency Provider Emergency Medicine; PCP Nurse Practitioner Family
DX: J45.901 Unspecified asthma with (acute) exacerbation (principal); Z79.899 Other long term (current) drug therapy; Z87.891 Personal history of nicotine dependence; Z88.8 Allergy status to other drugs, medicaments and biological substances; Z96.652 Presence of left artificial knee joint
CPT/HCPCS: 71046; 94640; 96372; 99282

== ENCOUNTER 2020-05-23 11:46 | Emergency (ER) | payer MEDICARE, SELFPAY ==
[2020-05-23 11:48] VITALS: BP 194/110; PULSE 92; RESP 20; TEMP 36.2; O2SAT 96; BMI 51.1
[2020-05-23 11:57] VITALS: O2SAT 95
--- NOTE | 2020-05-23 12:00 | EKG12_ITS ---
Test Reason : SOB Blood Pressure : / mmHG Vent. Rate : 083 BPM Atrial Rate : 083 BPM P-R Int : 110 ms QRS Dur : 088 ms QT Int : 380 ms P-R-T Axes : 033 -01 062 degrees QTc Int : 446 ms Suspect unspecified pacemaker failure Atrial-paced rhythm Left ventricular hypertrophy with repolarization abnormality Inferior infarct , age undetermined Abnormal ECG Confirmed by RASHEL BORDEN, STEWART ([id number]), photographic editor LUZ MARINA GREY ([id number]) on 05/25/2020 9:03:58 AM Referred By: SAHIA Confirmed By:STEWART KISER MD
--- NOTE | 2020-05-23 12:01 | ED.DCSUM_ITS ---
History of Present Illness Chief Complaint: Asthma Narrative: This patient is a 59-year-old female who presents with asthma exacerbation. She woke this morning and felt more short of breath. She also has mild increase in cough. No fevers. No congestion sore throat diarrhea. No sick contacts. She had been in her usual state of health until this morning. She did try a couple nebulized treatments at home without significant relief. She denies any chest pain or history of coronary disease. She does take Lasix as needed for peripheral edema, no history of congestive heart failure. Past Medical History - Allergies and Home Meds Allergies/Adverse Reactions: Allergies amlodipine Adverse Reaction (Verified 05/23/20 11:48) Swelling Primary Care Physician: Butch Maddox NP-C [Primary Care Provider] - Past Medical History: - - Asthma, hypertension, anxiety and depression, fibromyalgia Surgical History: - - Breast reduction surgery, bladder sling, bilateral foot surgery, right foot surgery and right lower extremity surgery x11 with eventual right BKA, hysterectomy, bilateral hip implants with one bladder and the other pain associated, left total knee replacement, tonsillectomy, tummy tuck. Smoking Status: Former smoker - Family History Maternal Family History: Family History (Last Reviewed 01/28/20 @ 10:15 by GINO Hernandez) Mother Hypertension Cancer Diabetes Father Cancer Brother Diabetes Grandfather Diabetes Family History: Reports: Cancer - in her 50s of pancreatic cancer., Diabe elissa, Heart Disease, Hypertension Paternal Family History: Family History (Last Reviewed 01/28/20 @ 10:15 by GINO Hernandez) Mother Hypertension Cancer Diabetes Father Cancer Brother Diabetes Grandfather Diabetes Family History: Reports: Cancer - in his 70s of pancreatic cancer., Diabetes, Heart Disease, Hypertension Sibling Family History: Family History (Last Reviewed 01/28/20 @ 10:15 by GINO Hernandez) Mother Hypertension Cancer Diabetes Father Cancer Brother Diabetes Grandfather Diabetes Family History: Reports: - - Denies significant sibling history including cardiac history. Review of Systems All systems negative except as indicated General: Denies: Fever Eyes: Denies: Visual changes - bilaterally ENT: Denies: Sore throat Cardiovascular: Denies: Chest pain Respiratory: Reports: Dyspnea, Cough. Denies: Sputum Gastrointestinal: Denies: Abdominal pain, Diarrhea Musculoskeletal: Denies: Myalgias, Arthralgias Skin: Denies: Rash Neurological: Denies: Headache Psych: Reports: Anxiety Allergy: Denies: Uticaria Physical Exam Vital Signs/Narrative: Vital Signs Temp Pulse Resp BP Pulse Ox 05/23/20 11:48 97.2 F L 92 20 H 194/110 H 96 Inital Vital Signs reviewed: Yes General: Well nourished Head: Normocephalic Eyes: EOMI ENT: Moist mucous membranes Neck: Supple Cardiovascular: Regular rate, Regular rhythm Respiratory: Diminished, Decreased Air Movement, - - Slightly increased work of breathing decreased air exchange Abdomen: Soft Extremities: Nontender, - - Right leg amputation noted Skin: Normal color Neurological: Alert Psychological: Normal affect Diagnostic/Tx/Re-eval Impressions Chest CTA 05/23/20 12:50 IMPRESSION: Normal CTA chest examination, without a demonstrated pulmonary embolism or arterial dissection. Electronically Signed: Butch Rhoades MD at 13:47 EDT Tel , Service support , Chest X-Ray 05/23/20 12:52 IMPRESSION: Stable, nonacute portable x-ray examination of the chest. Electronically Signed: Dar Valdez MD ([place]) at 13:01 EDT , Service support , 05/23/20 12:50 CTA Chest W/WO Contrast [CT] Stat 05/23/20 12:52 Chest PA and Lateral [RAD] Stat Laboratory Results 05/23/20 05/23/20 05/23/20 12:19 12:19 12:19 WBC 8.6 RBC 4.84 Hgb 13.7 Hct 42.8 MCV 88.4 MCH 28.3 MCHC 32.0 RDW Std Deviation 49.1 H RDW Coeff of [place] 15.1 H Plt Count 283 MPV 10.5 Immature Gran % (Auto) 0.500 Neut % (Auto) 70.3 H Lymph % (Auto) 17.4 L [place] % (Auto) 10.0 Eos % (Auto) 1.2 Baso % (Auto) 0.6 Absolute Neuts (auto) 6.0 Absolute Lymphs (auto) 1.49 Nucleated RBC % 0 D-Dimer Quant (PE/DVT) 0.74 H* Sodium 139 Potassium 3.7 Chloride 108 H Carbon Dioxide 27.0 Anion Gap 4 L BUN 17 Creatinine 0.86 Estim Creat Clear Calc 67.65 Est GFR (MDRD) Af Amer 87 Est GFR (MDRD) Non-Af 72 BUN/Creatinine Ratio 19.9 Glucose 103 Calcium 9.2 Troponin I < 0.015 - Medical Decision Making Patient was given albuterol and Atrovent aerosols. She was given IV Solu- Medrol. On reevaluation she was complaining of chest pain. She had reported that this was pleuritic. Chest x-ray normal. Labs as above notable for elevation of d-dimer and a CT angiogram was ordered. No evidence of pulmonary embolism or arterial dissection. Her chest pain is reproducible at the anterior chest/costochondral margins. She was given IV Toradol. She will be discharged with a prednisone burst and advised to follow-up with her primary care physician. ED Disposition - Plan for ED Patient: Disposition: Home or Assisted Living Diagnosis: Asthma exacerbation, Chest wall pain Instructions: ED REACTIVE AIRWAY DISEASE Adult, ED CHEST PAIN [place] Prescriptions: Prednisone [Deltasone] 60 mg PO DAILY #12 tab Prescription Printed Referrals: Butch Maddox NP-C [Primary Care Provider] -
[2020-05-23] MEDS: Ondansetron 4 MG/2 ML Vial IV (12:17)
[2020-05-23] MEDS: MethylPREDNISolone 125 MG/2 ML Vial IV (12:19)
[2020-05-23] MEDS: Albuterol 2.5 MG/3 ML VIAL.NEB. INHALATION (12:21)
[2020-05-23] MEDS: Ipratropium/Albuterol Sulfate 3 ML AMPUL.NEB INHALATION (12:21)
[2020-05-23 12:24] LABS: Absolute Lymphocyte Count 1.49 X10^3/uL (0.83-4.51); Basophil# 0.05 X10^3/uL; Basophil% 0.6 % (0-1); Eosinophils% 1.2 % (0-5); Hematocrit 42.8 % (37-47); Hemoglobin 13.7 g/dL (12.0-15.0); Lymphocyte # 1.49 X10^3/ul (4.0); Lymphocyte % 17.4 % (19-41); Mean Corpuscular Hgb 28.3 pg (27.0-32.0); Mean Corpuscular Volume 88.4 fL (81-99); Mean Platelet Vol. 10.5 fl (6.2-12.0); Monocyte# 0.86 X10^3/uL; NRBC Flagged by Analyzer 0 % (0-5); Neutrophil # 6.03 X10^3/uL (2.7-7.7); Neutrophil % 70.3 % (47-70); Platelet Count 283 K/mm3 (150-450); RBC Distribution Width CV 15.1 % (11.6-14.6); RBC Distribution Width SD 49.1 fl (35.1-43.9); Red Blood Count 4.84 M/mm3 (4.2-5.4); White Blood Count 8.6 K/mm3 (4.4-11.0)
[2020-05-23 12:30] VITALS: PULSE 86; RESP 16; O2SAT 95
[2020-05-23 12:39] LABS: D-Dimer Quantitative (DVT/PE) 0.74 FEU/ug/m (0.27-0.49)
--- NOTE | 2020-05-23 12:50 | CT_ITS ---
STUDY: CTA CHEST REASON FOR EXAM: Female, 59 years old. ELEVATED D-DIMER, PLEURITIC CHEST PAIN RADIATION DOSAGE (If Supplied By Facility): CTDIvol = ( 13.85 ) mGy, DLP = ( 520.86 ) mGycm TECHNIQUE: The examination was performed with the intravenous administration of 100CC ISOVUE 370. Post-processing of the angiographic images was performed, with multiplanar reformation and 3D reconstruction. Individualized dose optimization techniques were used for this CT. COMPARISON: None. FINDINGS: Normal enhancement of the main pulmonary artery and right and left pulmonary arteries. Normal enhancement of the bilateral peripheral pulmonary arteries. There is no demonstrated pulmonary embolism. Normal thoracic aorta and visualized great vessels. There is no demonstrated aortic dissection. Normal heart and pericardium. Normal mediastinum. Normal hilar regions. Normal visualized trachea and bronchi. The lungs are well expanded. Normal pulmonary parenchyma. Normal pleura. Normal chest wall structures. Normal osseous structures. Dorsal column spinal stimulator in the lower thoracic spine. Normal visualized upper abdomen. CT/CTA Chest W/WO Contrast IMPRESSION: Normal CTA chest examination, without a demonstrated pulmonary embolism or arterial dissection. Electronically Signed: Butch Rhoades MD at 13:47 EDT Tel , Service support ,
[2020-05-23 12:52] LABS: Anion Gap 4 (5-15); BUN 17 mg/dL (7-18); BUN/Creat Ratio 19.9 RATIO (10-20); Calcium,Total 9.2 mg/dL (8.5-10.1); Chloride 108 mmol/L (98-107); Creatinine, Serum 0.86 mg/dL (0.55-1.02); EST Glomerular Filtration Rate 72 mL/min (>60); Est Glom Filt Rate - Afr Amer 87 mL/min (>60); Estimated Creatinine Clearance 67.65 ml/min; Glucose 103 mg/dL (74-106); Potassium 3.7 mmol/L (3.5-5.1); Sodium Level 139 mmol/L (136-145)
--- NOTE | 2020-05-23 12:52 | RAD_ITS ---
STUDY: X-RAY CHEST REASON FOR EXAM: Female, 59 years old. SOB TECHNIQUE: AP COMPARISON: None. FINDINGS: The lungs are clear and expanded. There is no demonstrated pleural abnormality. Normal size heart. Normal mediastinum and jimmy. Normal visualized pulmonary arteries. There is atherosclerotic calcification of the aortic arch with tortuosity. Neurostimulator leads project over the thoracic spine. Normal visualized ribs, clavicles, and shoulders. There is no demonstrated abnormality of the visualized soft tissue structures of the upper abdomen. RAD/Chest PA and Lateral IMPRESSION: Stable, nonacute portable x-ray examination of the chest. Electronically Signed: Dar Valdez MD ([place]) at 13:01 EDT , Service support ,
[2020-05-23] MEDS: Ketorolac 30 MG/ML Syringe IV (14:13)
[2020-05-23 14:25] VITALS: BP 168/84; PULSE 86; RESP 18; TEMP 36.1; O2SAT 96
== END 2020-05-23 14:26 | disposition home or self-care (01) ==
PROVIDERS: Emergency Provider Emergency Medicine; PCP Nurse Practitioner Family
DX: J45.901 Unspecified asthma with (acute) exacerbation (principal); R07.89 Other chest pain; I10 Essential (primary) hypertension; M79.7 Fibromyalgia; F32.9 Major depressive disorder, single episode, unspecified; F41.9 Anxiety disorder, unspecified; Z79.1 Long term (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 non-steroidal anti-inflammatories (NSAID); Z79.51 Long term (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 inhaled steroids; Z79.52 Long term (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 systemic steroids; Z79.899 Other long term (current) drug therapy; Z87.891 Personal history of nicotine dependence; Z89.511 Acquired absence of right leg below knee; Z96.652 Presence of left artificial knee joint
CPT/HCPCS: 71046; 71275; 80048; 84484; 85025; 85379; 93005; 94640; 96374; 96375; 99284; Q9967; A4216; J2405

== ENCOUNTER 2020-06-24 18:20 | Emergency (ER) | payer MEDICARE, SELFPAY ==
[2020-06-24 18:21] VITALS: BP 147/87; PULSE 85; RESP 15; TEMP 36.7; O2SAT 96; BMI 47.0
--- NOTE | 2020-06-24 18:37 | ED.VIS.GEN ---
History of Present Illness Chief Complaint: Fall Informant: Patient Narrative: Patient is a 59-year-old female with a history of hypertension who presents to the emergency department after a mechanical fall. She states that she tripped. She landed on her left knee and left elbow. She describes elbow pain a 7 out of 10 in the knee pain is 10 out of 10. She is able to move the elbow without any significant pain. He has been able to ambulate on the lower extremity. She does have history of right leg amputation. She denies hitting her head or losing consciousness. Denies any neck or back pain. No chest pain, shortness of breath. No abdominal pain or nausea/vomiting. The left knee has been swelling. She has not tried taking anything for it. Past Medical History - Allergies and Home Meds Allergies/Adverse Reactions: Allergies amlodipine Adverse Reaction (Verified 05/23/20 11:48) Swelling Primary Care Physician: Butch Maddox QUALITY CONTROL AUDITOR, QUALITY CONTROL AUDITOR-C [Primary Care Provider] - 3-5 Days Prior records reviewed: Yes Surgical History: - - Breast reduction surgery, bladder sling, bilateral foot surgery, right foot surgery and right lower extremity surgery x11 with eventual right BKA, hysterectomy, bilateral hip implants with one bladder and the other pain associated, left total knee replacement, tonsillectomy, tummy tuck. Smoking Status: Former smoker - Family History Maternal Family History: Family History (Last Reviewed 01/28/20 @ 10:15 by Adwoa Cruz NP, QUALITY CONTROL AUDITOR-C) Mother Hypertension Cancer Diabetes Father Cancer Brother Diabetes Grandfather Diabetes Family History: Reports: Cancer - in her 50s of pancreatic cancer., Diabetes, Heart Disease, Hypertension Paternal Family History: Family History (Last Reviewed 01/28/20 @ 10:15 by Adwoa Cruz NP, QUALITY CONTROL AUDITOR-C) Mother Hypertension Cancer Diabetes Father Cancer Brother Diabetes Grandfather Diabetes Family History: Reports: Cancer - in his 70s of pancreatic cancer., Diabetes, Heart Disease, Hypertension Sibling Family History: Family History (Last Reviewed 01/28/20 @ 10:15 by Adwoa Cruz NP, QUALITY CONTROL AUDITOR-C) Mother Hypertension Cancer Diabetes Father Cancer Brother Diabetes Grandfather Diabetes Family History: Reports: - - Denies significant sibling history including cardiac history. Review of Systems All systems negative except as indicated General: Denies: Chills, Fever, Sweats Eyes: Denies: Visual changes - bilaterally, Diplopia ENT: Denies: Rhinorrhea, Sore throat Cardiovascular: Denies: Chest pain, Palpitations Respiratory: Denies: Dyspnea, Cough, Dyspnea on exertion Gastrointestinal: Denies: Abdominal pain, Nausea, Vomiting Musculoskeletal: Reports: Swelling, Extremity Pain. Denies: Back pain Skin: Reports: Abrasions. Denies: Rash, Wounds Neurological: Denies: Headache, Weakness, Numbness Physical Exam Vital Signs/Narrative: Vital Signs Temp Pulse Resp BP Pulse Ox 06/24/20 18:21 98.1 F 85 15 147/87 H 96 Inital Vital Signs reviewed: Yes General: Well nourished, Well developed, No Acute Distress Head: Normocephalic, Atraumatic Eyes: Perrl, EOMI ENT: Moist mucous membranes, No rhinorrhea Neck: Supple, Nontender Cardiovascular: Regular rate, Regular rhythm, No murmurs Respiratory: No distress, CTA bilaterally, Chest nontender Abdomen: Soft, Nontender, Nondistended, Normal bowel sounds Back: Nontender, Normal Inspection. Negative for: Spinal tenderness Extremities: Tenderness - Left knee tenderness and swelling. Some mild tenderness around olecranon. 5 out of 5 muscle strength in both extremities. Neurovascularly intact. Skin: Normal color, No rash Neurological: Alert, Oriented x3, Cranial nerves II-XII grossly intact, Normal Strength, Normal Sensation Psychological: Normal affect, Normal Mood Diagnostic/Tx/Re-eval - Medical Decision Making Patient presents to the ED for left knee and elbow pain after a fall. Will obtain x-rays of the knee. She does not have significant tenderness and can move the elbow fully so we will hold off on imaging the elbow. Patient given a dose of Toradol for symptomatic treatment. X-rays did not reveal any acute traumatic findings. Patient recommended rice treatment. Can use ibuprofen and Tylenol as needed. She is to follow-up with her PCP. Warning signs and symptoms for which to return to the ED are reviewed with her. She understands and is agreeable this plan. Patient was able to ambulate out of the ED without any difficulty. ED Disposition - Plan for ED Patient: Disposition: Home or Assisted Living Diagnosis: Knee contusion, Ankle pain Instructions: ED RICE Referrals: Butch Maddox QUALITY CONTROL AUDITOR, QUALITY CONTROL AUDITOR-C [Primary Care Provider] - 3-5 Days
[2020-06-24] MEDS: Ketorolac 30 MG/ML Syringe IM (18:43)
--- NOTE | 2020-06-24 18:45 | RAD_ITS ---
STUDY: X-RAY - LEFT KNEE REASON FOR EXAM: Female, 59 years old. LEFT KNEE PAIN AFTER FALL TECHNIQUE: 4 view(s) of the knee. COMPARISON: Prior study of 07/21/2017 FINDINGS: Status post total left knee replacement changes are seen with implants appearing in good position. There is no evidence of implant loosening or new associated fracture or dislocation. RAD/Knee 4 or More Views IMPRESSION: Status post total left knee replacement changes seen with implants appearing in good position. There is no evidence of fracture or dislocation. Electronically Signed: Wilfrid Floyd MD at 19:16 EDT , Service support ,
--- NOTE | 2020-06-24 18:45 | RAD_ITS ---
STUDY: X-RAY - LEFT ANKLE REASON FOR EXAM: Female, 59 years old. LEFT ANKLE PAIN AFTER FALL TECHNIQUE: 3 view(s) of the ankle. COMPARISON: None. FINDINGS: Normal visualized distal tibia and fibula. Normal medial and lateral malleoli. Normal tibiotalar articulation and ankle mortise. Normal visualized talus and calcaneus. The visualized subtalar, talonavicular, calcaneocuboid and tarsal articulations are normal. The soft tissue structures are unremarkable. RAD/Ankle min 3 Views IMPRESSION: Normal x-ray examination of the ankle. Electronically Signed: Wilfrid Floyd MD at 19:14 EDT , Service support ,
== END 2020-06-24 19:45 | disposition home or self-care (01) ==
PROVIDERS: Emergency Provider Emergency Medicine; PCP Nurse Practitioner Family
DX: S80.02XA Contusion of left knee, initial encounter (principal); M25.522 Pain in left elbow; W19.XXXA Unspecified fall, initial encounter; Y93.9 Activity, unspecified; Y92.9 Unspecified place or not applicable; Y99.9 Unspecified external cause status; I10 Essential (primary) hypertension; Z79.899 Other long term (current) drug therapy; Z87.891 Personal history of nicotine dependence; Z96.652 Presence of left artificial knee joint; Z89.611 Acquired absence of right leg above knee
CPT/HCPCS: 73564; 73610; 96372; 99282

== ENCOUNTER 2020-09-06 16:36 | Emergency (ER) | payer MEDICARE, SELFPAY ==
[2020-09-06] VITALS (7 sets, daily range): BP systolic 140–147; BP diastolic 82–97; PULSE 76–82; RESP 17–22; TEMP 36.6–37.2; O2SAT 95–99; BMI 50.1
--- NOTE | 2020-09-06 17:05 | EKG12_ITS ---
Test Reason : SOB Blood Pressure : / mmHG Vent. Rate : 076 BPM Atrial Rate : 076 BPM P-R Int : 000 ms QRS Dur : 090 ms QT Int : 394 ms P-R-T Axes : 000 002 043 degrees QTc Int : 443 ms Accelerated Junctional rhythm Consider Left ventricular hypertrophy Abnormal ECG Confirmed by ELDER BORDEN, LOUIS ([id number]), website/blog editor LUZ MARINA GREY ([id number]) on 09/08/2020 1:05:00 PM Referred By: Confirmed By:LOUIS FRIEDMAN MD
--- NOTE | 2020-09-06 17:06 | CT_ITS ---
STUDY: CTA CHEST REASON FOR EXAM: Female, 60 years old. SOB X 1-2 WEEKS -- HX:ASTHMA,HTN.RT LEG AMPUTEE RADIATION DOSAGE (If Supplied By Facility): CTDIvol = ( 13.26 ) mGy, DLP = ( 1082.08 ) mGycm TECHNIQUE: The examination was performed with the intravenous administration of IV 100mL Isovue-370. Post-processing of the angiographic images was performed, with multiplanar reformation and 3D reconstruction. Individualized dose optimization techniques were used for this CT. COMPARISON: None. FINDINGS: Normal enhancement of the main pulmonary artery and right and left pulmonary arteries. Normal enhancement of the bilateral peripheral pulmonary arteries. There is no demonstrated pulmonary embolism. Normal thoracic aorta and visualized great vessels. There is no demonstrated aortic dissection. Normal heart and pericardium. Normal mediastinum. Normal hilar regions. Normal visualized trachea and bronchi. The lungs are well expanded. Normal pulmonary parenchyma. Normal pleura. Normal chest wall structures. Degenerative vertebral changes. Stimulator electrodes are noted at the lower thoracic levels. Normal visualized upper abdomen. CT/CTA Chest W/WO Contrast IMPRESSION: No demonstrated pulmonary embolism or arterial dissection. Electronically Signed: Jose Cabello DO at 20:37 EST Tel [phone], Service support ,
--- NOTE | 2020-09-06 17:08 | ED.DCSUM_ITS ---
- ER Visit Summary Date of Service: 09/06/20 Chief Complaint: Shortness of breath History of Present Illness: The patient is a 60 F presenting with shortness of breath x1 to 2 weeks. Patient states that she got her [place] decorations out which were lynn and frequently this exacerbates her asthma. She has been on a steroid taper and Zithromax per her primary care physician. She was sent in today because she is not improving and there was concern for PE. She denies fever chills. Denies myalgias. Denies chest pain. She has history of right BKA and has had multiple leg surgeries, last being in July. Physical Examination: Vitals are stable. Patient is afebrile. Alert no acute distress. Pulse ox 96% on room air. HEENT exam is unremarkable. Neck is supple. Lungs are clear and equal bilaterally. Heart is regular rate and rhythm. Abdomen is soft nontender nondistended. Extremities right BKA, no erythema, no warmth Skin is warm and dry. No focal neurologic deficit. Remainder of exam is unremarkable. Emergency Department Course and Treatment: CBC, chemistries unremarkable. Troponin is negative. Covid negative. CTA chest shows no PE or dissection. On reevaluation, patient is resting comfortably. Her pulse ox is 96% on room air. She is advised to finish her antibiotics and steroids. Advised to follow-up with her primary care physician. Advised return to the ED for worsening complaints. Disposition: Discharge home Impression: Dyspnea This note was generated with [employer] dictation software. It may contain incorrect words, spelling, and punctuation that were not noted in review of the chart prior to signing ED Disposition - Plan for ED Patient: Disposition: Home or Assisted Living Instructions: ED Dyspnea Referrals: Butch Maddox FIELD OPERATIONS COORDINATOR, FIELD OPERATIONS COORDINATOR-C [Primary Care Provider] -
[2020-09-06 18:55] LABS: Absolute Lymphocyte Count 1.96 X10^3/uL (0.83-4.51); Absolute Neutrophil Count 7.5 X10^3/uL (2.0-7.7); Basophil# 0.06 X10^3/uL; Basophil% 0.6 % (0-1); Eosinophil# 0.05 X10^3/uL; Eosinophils% 0.5 % (0-5); Hematocrit 38.4 % (37-47); Hemoglobin 12.4 g/dL (12.0-15.0); Lymphocyte # 1.96 X10^3/ul (4.0); Lymphocyte % 18.9 % (19-41); Mean Corp Hgb Conc 32.3 g/dL (32-36); Mean Corpuscular Hgb 28.6 pg (27.0-32.0); Mean Corpuscular Volume 88.7 fL (81-99); Mean Platelet Vol. 10.8 fl (6.2-12.0); Monocyte# 0.78 X10^3/uL; Monocyte% 7.5 % (0-10); NRBC Flagged by Analyzer 0 % (0-5); Neutrophil # 7.45 X10^3/uL (2.7-7.7); Neutrophil % 71.9 % (47-70); Platelet Count 324 K/mm3 (150-450); RBC Distribution Width CV 14.3 % (11.6-14.6); Red Blood Count 4.33 M/mm3 (4.2-5.4); White Blood Count 10.4 K/mm3 (4.4-11.0)
[2020-09-06 19:13] LABS: Anion Gap 5 (5-15); BUN 16 mg/dL (7-18); BUN/Creat Ratio 19.5 RATIO (10-20); Chloride 105 mmol/L (98-107); Creatinine, Serum 0.82 mg/dL (0.55-1.02); EST Glomerular Filtration Rate 75 mL/min (>60); Est Glom Filt Rate - Afr Amer 91 mL/min (>60); Estimated Creatinine Clearance 70.06 ml/min; Glucose 96 mg/dL (74-106); Sodium Level 139 mmol/L (136-145)
--- NOTE | 2020-09-06 22:23 | DCINST.ED_ITS ---
ED Disposition - Plan for ED Patient: Instructions: ED Dyspnea Referrals: Butch Maddox PIERCE AND SHAVE PRESS OPERATOR, PIERCE AND SHAVE PRESS OPERATOR-C [Primary Care Provider] -
--- NOTE | 2020-09-06 22:23 | ED.DEP ---
ED Disposition - Plan for ED Patient: Instructions: ED Dyspnea Referrals: Butch Maddox SUBMARINE WORKER, SUBMARINE WORKER-C [Primary Care Provider] -
== END 2020-09-06 22:29 | disposition home or self-care (01) ==
LOC: ED 17:14
PROVIDERS: Emergency Provider Emergency Medicine; PCP Nurse Practitioner Family
DX: R06.00 Dyspnea, unspecified (principal); Z20.828 Contact with and (suspected) exposure to other viral communicable diseases; J45.909 Unspecified asthma, uncomplicated; I10 Essential (primary) hypertension; Z89.511 Acquired absence of right leg below knee
CPT/HCPCS: 71275; 80048; 84484; 85025; 87426; 93005; 99285; Q9967; A4216

== ENCOUNTER 2020-12-01 14:19 | Emergency (ER) | payer MEDICARE, SELFPAY ==
[2020-09-06 16:37] VITALS: BMI 50.1
[2020-12-01 14:20] VITALS: BP 142/64; PULSE 99; RESP 30; TEMP 36.6; O2SAT 96; BMI 51.7
[2020-12-01 14:44] VITALS: BP 122/90; PULSE 99; RESP 21; O2SAT 96
--- NOTE | 2020-12-01 14:47 | EKG12_ITS ---
Test Reason : SOB Blood Pressure : / mmHG Vent. Rate : 095 BPM Atrial Rate : 095 BPM P-R Int : 150 ms QRS Dur : 082 ms QT Int : 364 ms P-R-T Axes : 032 012 055 degrees QTc Int : 457 ms Normal sinus rhythm Nonspecific ST and T wave abnormality Abnormal ECG Confirmed by ELDER BORDEN, LOUIS ([id number]), scientific editor LUZ MARINA GREY ([id number]) on 12/06/2020 2:19:22 PM Referred By: ROSIE Confirmed By:LOUIS FRIEDMAN MD
--- NOTE | 2020-12-01 14:47 | RAD_ITS ---
STUDY: X-RAY CHEST REASON FOR EXAM: Female, 60 years old. Cough/ SOB TECHNIQUE: Frontal view COMPARISON: 05/23/2020 FINDINGS: The lungs are clear and expanded. There is no demonstrated pleural abnormality. Normal size heart. Normal mediastinum and jimmy. Normal visualized pulmonary arteries. Normal visualized aortic arch and descending thoracic aorta. Normal visualized thoracic spine. Degenerative changes at the shoulders. There is no demonstrated abnormality of the visualized soft tissue structures of the upper abdomen. RAD/Chest 1 View (Portable) IMPRESSION: Normal x-ray examination of the chest. Electronically Signed: Jose Cabello DO at 16:41 EST Tel [phone], Service support ,
--- NOTE | 2020-12-01 14:52 | ED.DCSUM_ITS ---
History of Present Illness Chief Complaint: Shortness of Breath Informant: Patient Narrative: Patient is a 60-year-old female with a past medical history of asthma who presents to the [facility] for shortness of breath. She states that she has had a cough over the past 3 weeks. She denies any productivity to this. She denies any fevers or chills. Her breathing acutely got worse this morning. She does have inhalers at home which have not been giving her significant relief. Denies any recent steroid use. She denies any chest pain. She has left lower leg edema and a right lower leg amputation. She is on Lasix which she took last 3 days and has not taken much fluid off. She denies any nausea/vomiting or diarrhea. No known sick contacts. No known coronavirus exposures. No history of DVT/PE, heart attacks or strokes. Past Medical History - Allergies and Home Meds Allergies/Adverse Reactions: Allergies amlodipine Adverse Reaction (Verified 12/01/20 14:20) Swelling Primary Care Physician: Butch Maddox DATA COMMUNICATIONS SOFTWARE CONSULTANT, DATA COMMUNICATIONS SOFTWARE CONSULTANT-C [Primary Care Provider] - Prior records reviewed: Yes Past Medical History: - - Asthma Surgical History: - - Breast reduction surgery, bladder sling, bilateral foot surgery, right foot surgery and right lower extremity surgery x11 with eventual right BKA, hysterectomy, bilateral hip implants with one bladder and the other pain associated, left total knee replacement, tonsillectomy, tummy tuck. Smoking Status: Former smoker - Family History Maternal Family History: Family History (Last Reviewed 01/28/20 @ 10:15 by Adwoa Cruz DATA COMMUNICATIONS SOFTWARE CONSULTANT, DATA COMMUNICATIONS SOFTWARE CONSULTANT-C) Mother Hypertension Cancer Diabetes Father Cancer Brother Diabetes Grandfather Diabetes Family History: Reports: Cancer - in her 50s of pancreatic cancer., Diabetes, Heart Disease, Hypertension Paternal Family History: Family History (Last Reviewed 01/28/20 @ 10:15 by Adwoa Cruz NP, DATA COMMUNICATIONS SOFTWARE CONSULTANT-C) Mother Hypertension Cancer Diabetes Father Cancer Brother Diabetes Grandfather Diabetes Family History: Reports: Cancer - in his 70s of pancreatic cancer., Diabetes, Heart Disease, Hypertension Sibling Family History: Family History (Last Reviewed 01/28/20 @ 10:15 by Adwoa Cruz NP, DATA COMMUNICATIONS SOFTWARE CONSULTANT-C) Mother Hypertension Cancer Diabetes Father Cancer Brother Diabetes Grandfather Diabetes Family History: Reports: - - Denies significant sibling history including cardiac history. Review of Systems All systems negative except as indicated General: Denies: Chills, Fever, Sweats Eyes: Denies: Visual changes - bilaterally, Diplopia ENT: Denies: Rhinorrhea, Sore throat Cardiovascular: Denies: Chest pain, Palpitations Respiratory: Reports: Dyspnea, Cough Gastrointestinal: Denies: Abdominal pain, Nausea, Vomiting, Diarrhea, Melena, Hematochezia Genitourinary: Denies: Dysuria, Hematuria, Frequency Musculoskeletal: Reports: Swelling. Denies: Back pain, Extremity Pain Skin: Denies: Rash, Wounds Neurological: Denies: Headache, Weakness, Numbness Physical Exam Vital Signs/Narrative: Vital Signs Temp Pulse Resp BP Pulse Ox 12/01/20 14:44 99 21 H 122/90 H 96 12/01/20 14:20 97.8 F 99 30 H 142/64 H 96 Inital Vital Signs reviewed: Yes General: Well nourished, Well developed, No Acute Distress Head: Normocephalic, Atraumatic Eyes: Perrl, EOMI ENT: Moist mucous membranes, No rhinorrhea Neck: Supple, Nontender Cardiovascular: Regular rate, Regular rhythm, No murmurs Respiratory: No distress, Chest nontender, Wheezing, Decreased Air Movement, - - Tachypneic with accessory muscle use. Able to speak in few word sentences. Abdomen: Soft, Nontender, Nondistended, Normal bowel sounds Back: Nontender, Normal Inspection Extremities: Nontender, No edema, Edema - 1+ pitting edema of left lower extremity. Right BKA. Skin: Normal color, No rash Neurological: Alert, Oriented x3, Cranial nerves II-XII grossly intact, Normal Strength, Normal Sensation Psychological: Normal affect, Normal Mood Diagnostic/Tx/Re-eval Chest X-Ray - ED: 1 View - Single view portable x-ray interpreted by myself. Cl ear lung enrique bilaterally. No pleural effusions. Normal cardiac silhouette. Agree with radiologist interpretation. - EKG Initial EKG Interpretation: - - Rate of 95 bpm and normal sinus rhythm. Normal intervals. Normal axis. Nonspecific ST abnormalities but no significant ST elevations or depressions. - Medical Decision Making Patient presents to the ED for shortness of breath. She has had a cough. She has a significant history of asthma and is wheezing on physical exam. She does appear in mild respiratory distress. Will trial a DuoNeb breathing treatment and Solu-Medrol for the bronchospasm. EKG, chest x-ray basic lab work being obtained. She is satting well on room air currently. Patient still having wheezing after initial breathing treatment but speaking in full sentences. She is having wheezing but sounds more of the upper airway as opposed to lower airway. We did give another DuoNeb breathing treatment. She still has the same sound but satting well on room air and is no distress. Talking in full sentences still. X-ray not showing any signs of consolidation. Lab work did not show a high BNP or elevated troponin. I did offer magnesium to see if this could help with the bronchospasm but she is declining at this time. Did offer Tessalon Perles for cough at home but she also declines this. We will write a prescription for prednisone for home treatment. She is to continue to use her inhalers. She is to follow-up with her PCP. Return precautions are reviewed with her. I did discuss using a home pulse oximeter with her. She is agreeable this plan. Discharged home in stable condition. All questions were answered. ED Disposition - Plan for ED Patient: Disposition: Home or Assisted Living Diagnosis: Dyspnea, Bronchospasm Instructions: ED Asthma, Acute (Adult), ED Dyspnea Prescriptions: Prednisone [Deltasone] 40 mg PO DAILY #10 tab Transmission Status: Pending to [facility] Referrals: Butch Maddox DATA COMMUNICATIONS SOFTWARE CONSULTANT, DATA COMMUNICATIONS SOFTWARE CONSULTANT-C [Primary Care Provider] - 2 Days
[2020-12-01 15:00] VITALS: PULSE 95; RESP 19
[2020-12-01] MEDS: Ipratropium/Albuterol Sulfate 3 ML AMPUL.NEB INHALATION ×2 (15:03→16:28)
[2020-12-01] MEDS: MethylPREDNISolone 125 MG/2 ML Vial IV (15:19)
[2020-12-01 15:46] VITALS: BP 131/87; PULSE 91; RESP 17; TEMP 36.8; O2SAT 97
[2020-12-01 16:02] LABS: Anion Gap 7 (5-15); BUN 16 mg/dL (7-18); Calcium,Total 8.8 mg/dL (8.5-10.1); Chloride 108 mmol/L (98-107); Creatinine, Serum 0.94 mg/dL (0.55-1.02); EST Glomerular Filtration Rate 64 mL/min (>60); Est Glom Filt Rate - Afr Amer 78 mL/min (>60); Estimated Creatinine Clearance 61.12 ml/min; Glucose 99 mg/dL (74-106); Potassium 4.2 mmol/L (3.5-5.1); Sodium Level 138 mmol/L (136-145)
[2020-12-01 16:05] LABS: Absolute Lymphocyte Count 2.29 X10^3/uL (0.83-4.51); Absolute Neutrophil Count 5.2 X10^3/uL (2.0-7.7); Basophil# 0.06 X10^3/uL; Basophil% 0.7 % (0-1); Eosinophil# 0.22 X10^3/uL; Eosinophils% 2.5 % (0-5); Hematocrit 37.4 % (37-47); Hemoglobin 11.6 g/dL (12.0-15.0); Lymphocyte # 2.29 X10^3/ul (4.0); Lymphocyte % 26.3 % (19-41); Mean Corpuscular Hgb 25.8 pg (27.0-32.0); Mean Corpuscular Volume 83.1 fL (81-99); Mean Platelet Vol. 10.8 fl (6.2-12.0); Monocyte# 0.91 X10^3/uL; Monocyte% 10.4 % (0-10); NRBC Flagged by Analyzer 0 % (0-5); Neutrophil % 59.6 % (47-70); Platelet Count 290 K/mm3 (150-450); RBC Distribution Width CV 15.7 % (11.6-14.6); RBC Distribution Width SD 47.4 fl (35.1-43.9); White Blood Count 8.7 K/mm3 (4.4-11.0)
[2020-12-01 16:22] LABS: BNP,B-Type NATRIURETIC PEPTIDE 41.8 pg/mL (0-100)
[2020-12-01 16:28] VITALS: PULSE 88; RESP 27
[2020-12-01 18:07] VITALS: BP 142/78; PULSE 101; RESP 16; O2SAT 98
== END 2020-12-01 18:10 | disposition home or self-care (01) ==
PROVIDERS: Emergency Provider Emergency Medicine; PCP Nurse Practitioner Family
DX: J45.909 Unspecified asthma, uncomplicated (principal); R60.0 Localized edema; Z79.899 Other long term (current) drug therapy; Z87.891 Personal history of nicotine dependence; Z96.652 Presence of left artificial knee joint; Z89.511 Acquired absence of right leg below knee
CPT/HCPCS: 71045; 80048; 83880; 84484; 85025; 87426; 93005; 94640; 96374; 99285; J3475

== ENCOUNTER 2021-05-19 12:50 | Observation (INO) | payer MEDICARE, SELFPAY ==
[2021-05-19] VITALS (9 sets, daily range): BP systolic 123–166; BP diastolic 56–102; PULSE 20–90; RESP 12–98; TEMP 36.5–36.7; O2SAT 95–100; BMI 50.1; BMI 55.2
--- NOTE | 2021-05-19 13:11 | EKG12_ITS ---
Test Reason : COUGH Blood Pressure : / mmHG Vent. Rate : 089 BPM Atrial Rate : 089 BPM P-R Int : 160 ms QRS Dur : 078 ms QT Int : 366 ms P-R-T Axes : 041 000 048 degrees QTc Int : 445 ms Normal sinus rhythm Normal ECG Confirmed by RASHEL BORDEN, STEWART ([id number]), newspaper editor managing LUZ MARINA GREY ([id number]) on 05/23/2021 1:02:49 PM Referred By: ROSIE Confirmed By:STEWART KISER MD
--- NOTE | 2021-05-19 13:13 | EDS_ITS ---
HPI History of Present Illness Chief Complaint: Cough Informant: patient Onset/Context/Timing Onset: Today Context: gradual Timing: Continuous Current Severity: Mild Maximum Severity: Mild Worsened by: Nothing Relieved by: Nothing Associated Symptoms cough Chest Pain: Positive for None Narrative Narrative: 60-year-old female history of asthma and sleep apnea. She wears BiPAP at night. States she has had nonproductive cough for last day or so. And has had more short of breath. Today she did use her inhaler without relief. She is currently not on steroids. States her wheezing is worse. She was vaccinated for Covid and had no known exposure. She denies any recent hospitalization. Is never had a DVT or PE. PE Risk Factors: Negative for Cancer, OCP + Smoking + > 35, Prior DVT or PE, Recent immobilization, Recent surgery and Recent travel Prior similar symptoms: Yes Recent Illness/Hospitalization: No PFSH PFS Medical History (Updated 05/19/21 @ 14:[address] Eulalio De La Cruz MD) Anxiety Anxiety and depression Asthma Asthma exacerbation Benign essential HTN Bronchospasm Family history of diabetes mellitus (DM) Fibromyalgia Morbid obesity Obstructive sleep apnea Reflex sympathetic dystrophy Restless leg syndrome Home Medications meloxicam 7.5 mg PO BID 01/16/14 [History Last Taken 10/03/19] cyclobenzaprine 10 mg PO QHS 06/06/14 [History Last Taken 10/02/19] omeprazole 40 mg PO DAILY 07/12/15 [History Last Taken 10/03/19] furosemide 40 mg PO BID PRN 06/13/17 [History Last Taken 10/03/19] citalopram 40 mg PO DAILY 08/25/18 [History Last Taken 10/03/19] potassium chloride 40 meq PO DAILY 11/01/18 [History Last Taken 10/03/19] gabapentin 600 mg PO BID 09/20/19 [History Last Taken 10/02/19] oxycodone-acetaminophen 1 tab PO QHS PRN PRN 09/20/19 [History Last Taken 10/02/19] pramipexole 1 mg PO QHS #1 tab 09/22/19 [Rx Last Taken 10/02/19] albuterol sulfate 90 mcg/actuation aerosol inhaler 2 puff INHALATION Q6H PRN #8.5 g 05/11/21 [Rx Last Taken Unknown] fluticasone 500 mcg-salmeterol 50 mcg/dose blistr powdr for inhalation 1 inh INHALATION BID #60 ea 05/11/21 [Rx Last Taken Unknown] valsartan 320 mg PO DAILY 05/19/21 [History Last Taken Unknown] Allergy/AdvReac Type Severity Reaction Status Date / Time amlodipine AdvReac Swelling Verified 05/19/21 12:54 Family History Mother Hypertension Cancer Pancreatic Diabetes Father Cancer pancreatic Brother Diabetes Grandfather Diabetes Surgical History Chronic knee pain after total replacement of left knee joint H/O foot surgery History of hysterectomy History of tonsillectomy Hx of breast reduction, elective Social History Smoking Status: Former smoker ROS ROS ED ROS Narrative Wheezing and nonproductive cough. No fever or chills. No chest pain. Review of Systems ROS Unobtainable: Denies due to encephalopathy Constitutional Constitutional ED: Denies chills or fever(s) Eyes Eyes: Denies change in vision ENT ENT ED: Denies ear pain or sore throat Cardiovascular Cardiovascular: Denies chest pain Respiratory/Chest Respiratory/Chest: Reports cough and dyspnea; Denies sputum Gastrointestinal Gastrointestinal: Denies abdominal pain, diarrhea, nausea or vomiting Genitourinary Genitourinary ED: Denies dysuria or hematuria Musculoskeletal Musculoskeletal: Denies myalgias Integumentary Denies rash Neurologic Neurologic: Denies headache(s) Psychiatric Psychiatric: Denies depression Endocrine Endocrinology: Denies polyuria Hematologic/Lymphatic Hematologic/Lymphatic: Denies easy bruising Allergic/Immunologic Allergic/Immunologic ED: Denies urticaria EXAM Physical Exam Narrative Exam Narrative: 60-year-old female vital signs stable pulse ox 100% on 4 L. Blood pressure 166/102 afebrile. She does not look septic or toxic. H EENT exam unremarkable. Moist with membranes. Neck nontender no JVD no lymphadenopathy. Lungs expiratory wheezing throughout. No rales or rhonchi. Heart regular rhythm rate in 90s. Abdomen soft nontender. Patient moving all 4 extremities. Calf are nontender without edema or cords. The right lower leg is below the knee amputation. She has a prosthesis in place. Neurologically she is awake alert with no focal motor deficits. Const Vital Signs: 05/19/21 12:51 05/19/21 13:33 05/19/21 13:35 Temperature 98 F Temperature Source Temporal Pulse Rate 20 L 90 Respiratory Rate 98 H 20 H Respiratory Effort Short of Breath Respiratory Depth Shallow Respiratory Pattern Tachypnea Tachypnea Blood Pressure 166/102 H Blood Pressure Mean 123 Pulse Ox 100 Oxygen Delivery Method Nasal Cannula Nasal Cannula Oxygen Flow Rate (L/min) 4 05/19/21 16:01 Temperature Temperature Source Pulse Rate 90 Respiratory Rate 19 H Respiratory Effort Respiratory Depth Respiratory Pattern Blood Pressure Blood Pressure Mean Pulse Ox 95 Oxygen Delivery Method Nasal Cannula Oxygen Flow Rate (L/min) 4 Positive well nourished and well developed; Negative for unkempt General Appearance ED: well developed; Negative for unkempt or NAD HEENT Reports moist mucous membranes atraumatic; Negative for trauma or tenderness Eyes PERRL and EOMs intact bilaterally Neck no lymphadenopathy, supple, no meningeal signs and no JVD General: Negative for tenderness Resp No normal respiratory effort and No clear to auscultation bilaterally Auscultation: wheezes; Negative for rales or rhonchi Cardio regular rate, regular rhythm, S1 normal heart sound, S2 normal heart sound and no murmurs GI non-tender, non-distended and no masses Auscultation: normoactive bowel sounds; Negative for hyperactive bowel sounds or hypoactive bowel sounds Palpation: soft; Negative for tender, guarding or rebound tenderness present Back/Spine no CVA tenderness and normal to inspection General Back: Negative for CVA tenderness Extremity normal to inspection General Extremety ED: Negative for edema or tenderness General Extremity: Negative for edema Neuro oriented x3 Sensorium / Orientation: alert, oriented to person, oriented to place and oriented to time; Negative for orientation impaired, confused or lethargic Motor Exam: strength 5/5 throughout Psych mental status grossly normal Appearance: Negative for unkempt Thought Process: normal thought process Skin no wounds Lesions: no lesions Rashes: no rashes MDM MDM MDM Narrative Medical decision making narrative: 60-year-old. To have an asthmatic flare rule out viral URI versus pneumonia versus Covid. Treated with oral steroids and both DuoNeb and albuterol aerosols. Chest x-ray and Covid being obtained. Patient's chest x-ray and Covid test were negative. However on repeat exam 2:50 PM she still wheezing. She will need to be admitted for further aerosols, started on IV Solu-Medrol also. As screening labs being obtained and IV being started and I will speak to the hospitalist once those return. Lab Data Attestation: I reviewed the patient's lab results. Lab results narrative: Covid test negative. CBC unremarkable white count 8. Hemoglobin 12. Electrolytes unremarkable gap of 5. Creatinine 0.8. Glucose 114. Labs: Laboratory Results - last 24 hr 05/19/21 05/19/21 16:03 16:03 WBC 8.9 RBC 4.44 Hgb 12.2 Hct 39.2 MCV 88.3 MCH 27.5 MCHC 31.1 L RDW Std Deviation 53.1 H RDW Coeff of Naga 16.4 H Plt Count 251 MPV 10.6 Immature Gran % (Auto) 0.800 Neut % (Auto) 87.7 H Lymph % (Auto) 7.0 L [place] % (Auto) 3.3 Eos % (Auto) 0.7 Baso % (Auto) 0.5 Absolute Neuts (auto) 7.8 H Absolute Lymphs (auto) 0.62 L Nucleated RBC % 0 Sodium 139 Potassium 4.1 Chloride 106 Carbon Dioxide 28.0 Anion Gap 5 BUN 20 H Creatinine 0.84 Estim Creat Clear Calc 68.39 Est GFR (MDRD) Af Amer 89 Est GFR (MDRD) Non-Af 73 BUN/Creatinine Ratio 23.9 H Glucose 114 H Calcium 8.9 Radiography Chest X-Ray - ED: 1 View, Read by ED Physician, Heart, Lungs, Mediastinum, Bony Structures, No Acute Disease and Chronic Changes Diagnostic Testing: Radiology Impression Chest X-Ray 05/19/21 13:45 IMPRESSION: No acute abnormality is seen. Electronically Signed: Sean Cotton MD at 14:02 EDT , Service support , Portable chest x-ray interpreted by myself the radiologist shows no acute abnormality. No infiltrates. Rhythm Strip Rhythm Strip: Sinus Rhythm Rate: 89 Ectopy: None EKG Initial EKG: Attestation: I personally reviewed and interpreted this EKG as follows: Interpretation: Sinus Rhythm and No Acute Injury Pattern Comments: Normal sinus rhythm rate 89 no acute signs of NC or ischemia. Discharge Plan Dx/Rx/DC Orders Clinical Impression: Asthma exacerbation, Viral URI Disposition Disposition: Acute Care Hospital [facility]
[2021-05-19] MEDS: Albuterol 2.5 MG/3 ML VIAL.NEB. INHALATION ×2 (13:21)
[2021-05-19] MEDS: Ipratropium/Albuterol Sulfate 3 ML AMPUL.NEB INHALATION ×2 (13:21→20:06)
[2021-05-19] MEDS: predniSONE 20 MG Tablet 60 MG PO (13:24)
--- NOTE | 2021-05-19 13:45 | RAD_ITS ---
STUDY: X-RAY CHEST REASON FOR EXAM: Female, 60 years old. Cough TECHNIQUE: Single AP portable view of the chest. COMPARISON: Comparison is made with prior study of 12/01/2020. FINDINGS: EKG electrodes are seen. The lungs are clear and expanded. There is no demonstrated pleural abnormality. Normal size heart. Normal mediastinum and jimmy. Normal visualized pulmonary arteries. There is atherosclerotic calcification of the aortic arch with tortuosity. There are diffuse degenerative changes of the visualized thoracic spine. Electrodes from a spinal cord stimulator are seen with the tip at the T8-T9 level. Normal visualized ribs, clavicles, and shoulders. There is no demonstrated abnormality of the visualized soft tissue structures of the upper abdomen. RAD/Chest 1 View (Portable) IMPRESSION: No acute abnormality is seen. Electronically Signed: Sean Cotton MD at 14:02 EDT , Service support ,
[2021-05-19 16:07] LABS: Absolute Lymphocyte Count 0.62 X10^3/uL (0.83-4.51); Absolute Neutrophil Count 7.8 X10^3/uL (2.0-7.7); Basophil# 0.04 X10^3/uL; Basophil% 0.5 % (0-1); Eosinophil# 0.06 X10^3/uL; Eosinophils% 0.7 % (0-5); Hematocrit 39.2 % (37-47); Hemoglobin 12.2 g/dL (12.0-15.0); Lymphocyte # 0.62 X10^3/ul (0.83-4.51); Mean Corp Hgb Conc 31.1 g/dL (32-36); Mean Corpuscular Hgb 27.5 pg (27.0-32.0); Mean Corpuscular Volume 88.3 fL (81-99); Mean Platelet Vol. 10.6 fl (6.2-12.0); Monocyte# 0.29 X10^3/uL; Monocyte% 3.3 % (0-10); NRBC Flagged by Analyzer 0 % (0-5); Neutrophil % 87.7 % (47-70); Platelet Count 251 K/mm3 (150-450); RBC Distribution Width CV 16.4 % (11.6-14.6); RBC Distribution Width SD 53.1 fl (35.1-43.9); Red Blood Count 4.44 M/mm3 (4.2-5.4); White Blood Count 8.9 K/mm3 (4.4-11.0)
[2021-05-19] MEDS: MethylPREDNISolone 125 MG/2 ML Vial IV (16:08)
[2021-05-19 16:23] LABS: Anion Gap 5 (5-15); BUN 20 mg/dL (7-18); BUN/Creat Ratio 23.9 RATIO (10-20); Calcium,Total 8.9 mg/dL (8.5-10.1); Chloride 106 mmol/L (98-107); Creatinine, Serum 0.84 mg/dL (0.55-1.02); EST Glomerular Filtration Rate 73 mL/min (>60); Est Glom Filt Rate - Afr Amer 89 mL/min (>60); Estimated Creatinine Clearance 68.39 ml/min; Glucose 114 mg/dL (74-106); Potassium 4.1 mmol/L (3.5-5.1); Sodium Level 139 mmol/L (136-145)
--- NOTE | 2021-05-19 16:26 | HP.PCM.HOS_ITS ---
HPI - General General Date of Admission: 05/19/21 Date of Service: 05/19/21 Chief Complaint: shortness of breath HPI Narrative SAULO PUENTES, is a 60 F who presents with 1 day of shortness of breath. Tried her bronchodilators without relief. Presented to the emergency room and patient was not hypoxic but did require 4 L nasal cannula. Patient received bronchodilators as well as methylprednisolone. Still actively wheezing and does not feel back to her baseline yet. Patient does not take oxygen at home with exception at night with her BiPAP. [facility] Medical History (Updated 05/19/21 @ 16:[address] Keanu Zhong, ) Anxiety Anxiety and depression Asthma Asthma exacerbation Benign essential HTN Bronchospasm Family history of diabetes mellitus (DM) Fibromyalgia Morbid obesity Obstructive sleep apnea Reflex sympathetic dystrophy Restless leg syndrome Home Medications meloxicam 7.5 mg PO BID 01/16/14 [History Last Taken 10/03/19] cyclobenzaprine 10 mg PO QHS 06/06/14 [History Last Taken 10/02/19] omeprazole 40 mg PO DAILY 07/12/15 [History Last Taken 10/03/19] furosemide 40 mg PO BID PRN 06/13/17 [History Last Taken 10/03/19] citalopram 40 mg PO DAILY 08/25/18 [History Last Taken 10/03/19] potassium chloride 40 meq PO DAILY 11/01/18 [History Last Taken 10/03/19] gabapentin 600 mg PO BID 09/20/19 [History Last Taken 10/02/19] oxycodone-acetaminophen 1 tab PO QHS PRN PRN 09/20/19 [History Last Taken 10/02/19] pramipexole 1 mg PO QHS #1 tab 09/22/19 [Rx Last Taken 10/02/19] albuterol sulfate 90 mcg/actuation aerosol inhaler 2 puff INHALATION Q6H PRN #8.5 g 05/11/21 [Rx Last Taken Unknown] fluticasone 500 mcg-salmeterol 50 mcg/dose blistr powdr for inhalation 1 inh INHALATION BID #60 ea 05/11/21 [Rx Last Taken Unknown] valsartan 320 mg PO DAILY 05/19/21 [History Last Taken Unknown] Allergy/AdvReac Type Severity Reaction Status Date / Time amlodipine AdvReac Swelling Verified 05/19/21 12:54 Family History Mother Hypertension Cancer Pancreatic Diabetes Father Cancer pancreatic Brother Diabetes Grandfather Diabetes Surgical History Chronic knee pain after total replacement of left knee joint H/O foot surgery History of hysterectomy History of tonsillectomy Hx of breast reduction, elective Social History Smoking Status: Former smoker ROS ROS Narrative Shortness of breath. No fever chills. No nausea no dysgeusia. No COVID-19 contacts. She has been vaccinated against COVID-19 in January. Does complain of lower extremity edema but states is actually doing better putting some extra Lasix. All review of systems were negative except as mentioned above in the history of present illness and the other review of systems. Vital Signs Vital Signs Vital Signs: 05/19/21 12:51 05/19/21 13:33 05/19/21 13:35 Temperature 36.6 C Temperature Source Temporal Pulse Rate 20 L 90 Respiratory Rate 98 H 20 H Respiratory Effort Short of Breath Respiratory Depth Shallow Respiratory Pattern Tachypnea Tachypnea Blood Pressure 166/102 H Blood Pressure Mean 123 Pulse Ox 100 Oxygen Delivery Method Nasal Cannula Nasal Cannula Oxygen Flow Rate (L/min) 4 05/19/21 16:01 Temperature Temperature Source Pulse Rate 90 Respiratory Rate 19 H Respiratory Effort Respiratory Depth Respiratory Pattern Blood Pressure Blood Pressure Mean Pulse Ox 95 Oxygen Delivery Method Nasal Cannula Oxygen Flow Rate (L/min) 4 Weight Weight: 145.15 kg Body Mass Index (BMI) 50.1 Physical Exam Const alert and oriented x3 Resp normal respiratory effort, no retractions, no use of accessory muscles and clear to auscultation bilaterally Cardio regular rate, regular rhythm, S1 normal heart sound and S2 normal heart sound GI normal to inspection, nondistended, normoactive bowel sounds, soft to palpation, non-tender and non-distended Extremity normal to inspection Skin no rashes or lesions noted Results Lab / Micro Data Result Diagrams: 05/19/21 16:03 05/19/21 16:03 Labs: Laboratory Results - last 24 hr 05/19/21 16:03: WBC 8.9, RBC 4.44, Hgb 12.2, Hct 39.2, MCV 88.3, MCH 27.5, MCHC 31.1 L, RDW Std Deviation 53.1 H, RDW Coeff of Naga 16.4 H, Plt Count 251, MPV 10.6, Immature Gran % (Auto) 0.800, Neut % (Auto) 87.7 H, Lymph % (Auto) 7.0 L, [place] % (Auto) 3.3, Eos % (Auto) 0.7, Baso % (Auto) 0.5, Absolute Neuts (auto) 7.8 H, Absolute Lymphs (auto) 0.62 L, Nucleated RBC % 0 05/19/21 16:03: Sodium 139, Potassium 4.1, Chloride 106, Carbon Dioxide 28.0, Anion Gap 5, BUN 20 H, Creatinine 0.84, Estim Creat Clear Calc 68.39, Est GFR (MDRD) Af Amer 89, Est GFR (MDRD) Non-Af 73, BUN/Creatinine Ratio 23.9 H, Glucose 114 H, Calcium 8.9 Micro: Microbiology 05/19/21 13:22 Mucosa - Nose SARS-CoV-2 Antigen (Rapid) - Final Rhythm Strip Rhythm Strip: Sinus Rhythm Rate: 89 Ectopy: None Radiology Impression Chest X-Ray 05/19/21 13:45 IMPRESSION: No acute abnormality is seen. Electronically Signed: Sean Cotton MD at 14:02 EDT , Service support , Assessment & Plan Assessment/Plan (1) Acute asthma exacerbation: QUALIFIERS: Asthma severity: severe Asthma persistence: unspecified Qualified Code(s): J45.901 - Unspecified asthma with (acute) exacerbation PLAN: 1. Acute exacerbation of asthma Negative for COVID-19 patient is also been vaccinated. No infiltrative process noted on chest x-ray Could been induced by another virus so we will check a respiratory viral panel Continue with bronchodilators as well as methylprednisolone 2. Acute respiratory insufficiency No reported hypoxia Wean oxygen as tolerated Patient on BiPAP at home at night where she bleeds oxygen through 3. FAY Continue with BiPAP nightly if she is able to obtain it. 4. VTE prophylaxis: Not indicated given current observation status Charges/Coding Visit Charges OBSV E&M: [id number] Initial observation care L2
--- NOTE | 2021-05-19 18:44 | PCS.PANDOC ---
PANDEMIC DOCUMENTATION INITIATED: Date: 05/16/2021 Time: 190
[2021-05-19] MEDS: cycloBENZAPRine HCl 10 MG Tablet PO (22:26)
[2021-05-19] MEDS: Amitriptyline 25 MG Tablet 50 MG PO (22:26)
[2021-05-19] MEDS: Gabapentin 600 MG Tablet PO (22:26)
[2021-05-19] MEDS: Pramipexole Di-HCl 1 MG Tablet PO (22:26)
[2021-05-19] MEDS: Meloxicam 7.5 MG Tablet PO (22:26)
[2021-05-19] MEDS: 0.9% Saline Lock 10 ML Syringe IV (22:27)
[2021-05-19] MEDS: Acetaminophen 325 MG Tablet 650 MG PO (23:42)
[2021-05-19] MEDS: oxyCODONE 5 MG Tablet PO (23:43)
[2021-05-20 02:05] VITALS: BP 114/74; PULSE 84; RESP 18; TEMP 36.7; O2SAT 98
[2021-05-20 02:32] VITALS: PULSE 82; RESP 12; RESP 20; O2SAT 96
[2021-05-20] MEDS: 0.9% Saline Lock 10 ML Syringe IV (05:21)
[2021-05-20 06:55] VITALS: PULSE 102; RESP 20; O2SAT 92
[2021-05-20] MEDS: Ipratropium/Albuterol Sulfate 3 ML AMPUL.NEB INHALATION (06:55)
--- NOTE | 2021-05-20 08:26 | PCM.DC ---
Discharge Instructions Diet Discharge Diet: 2000 mg Sodium Diet Activity Discharge Activity: Return to Normal Activity Dressing / Incision Call your doctor if you observe: Fever of 101 or Higher and Shortness of breath Follow Up Care Test Results: Test results from this visit will be discussed in further detail at your follow-up appointment, if applicable. Discharge Plan Admission Admit Date/Time: 05/19/21 16:25 Primary Reason for Your Visit: Asthma Exacerbation Attending Provider: Keanu Zhong Primary Care Provider: Butch Maddox NP Discharge Orders/Prescriptions Prescriptions: New prednisone 10 mg tablet 40 mg PO DAILY Qty: 20 RF: 0 Continued fluticasone propion-salmeterol [Wixela Inhub] 500-50 mcg/dose blister with device 1 inh inhalation BID Qty: 60 RF: 6 albuterol sulfate 90 mcg/actuation HFA aerosol inhaler 2 puff inhalation Q6H PRN (Reason: shortness of breath or wheezing) Qty: 8.5 RF: 6 meloxicam 7.5 MG tablet 7.5 mg PO BID RF: 0 omeprazole 20 MG capsule 40 mg PO DAILY RF: 0 furosemide 40 MG tablet 40 mg PO BID PRN (Reason: fluid overload) RF: 0 citalopram 40 MG tablet 40 mg PO DAILY RF: 0 potassium chloride 20 MEQ tablet 40 meq PO DAILY RF: 0 gabapentin 600 MG tablet 600 mg PO BID RF: 0 oxycodone-acetaminophen 1 TABLET tablet 1 tab PO QHS PRN PRN (Reason: Pain) RF: 0 pramipexole 0.5 MG tablet 1 mg PO QHS Qty: 1 RF: 0 valsartan 320 mg tablet 320 mg PO DAILY RF: 0 amitriptyline 50 mg tablet 50 mg PO QHS RF: 0 No Action cyclobenzaprine 10 MG tablet 10 mg PO QHS RF: 0 Referrals / Follow Up: Ventura Lo DO [STAFF PHYSICIAN] - None (next scheduled appointment) Butch Maddox NP, SUPERVISOR OF OPERATIONS-C [Primary Care Provider] - Within 1 Week Disposition Disposition (needs filled in before D/C Order can be placed): Home, Self Care
[2021-05-20] MEDS: Potassium Chloride Oral Tablet 20 MEQ 40 MEQ PO (08:28)
[2021-05-20] MEDS: Meloxicam 7.5 MG Tablet PO (08:28)
[2021-05-20] MEDS: Gabapentin 600 MG Tablet PO (08:29)
--- NOTE | 2021-05-20 08:32 | PCM.DC.SUM ---
Providers Date of Admission: 05/19/21 Primary Care Physician: Butch Maddox, CANDI-C Reason For Visit: ASTHMA EXACERBATION Diagnosis Discharge Diagnosis (1) Acute asthma exacerbation: Status: Acute Code(s): J45.901 - Unspecified asthma with (acute) exacerbation Qualifiers: Asthma severity: severe Asthma persistence: unspecified Qualified Code(s): J45.901 - Unspecified asthma with (acute) exacerbation Medications at Discharge Home Medications meloxicam 7.5 mg PO BID 01/16/14 cyclobenzaprine 10 mg PO QHS 06/06/14 omeprazole 40 mg PO DAILY 07/12/15 furosemide 40 mg PO BID PRN 06/13/17 citalopram 40 mg PO DAILY 08/25/18 potassium chloride 40 meq PO DAILY 11/01/18 gabapentin 600 mg PO BID 09/20/19 oxycodone-acetaminophen 1 tab PO QHS PRN PRN 09/20/19 pramipexole 1 mg PO QHS #1 tab 09/22/19 albuterol sulfate 90 mcg/actuation aerosol inhaler 2 puff INHALATION Q6H PRN #8.5 g 05/11/21 fluticasone 500 mcg-salmeterol 50 mcg/dose blistr powdr for inhalation 1 inh INHALATION BID #60 ea 05/11/21 amitriptyline 50 mg PO QHS 05/19/21 valsartan 320 mg PO DAILY 05/19/21 prednisone 40 mg PO DAILY #20 tab 05/20/21 Hospital Course Operations None Procedures None Summary of Care Provided Minutes Spent on Discharge: 26 Hospital Course: 60 yo female with asthma presents with 1 day history of shortness of breath. Patient is only on oxygen with her BiPAP at night. Patient was requiring up to 4 L. Today, patient feels much better, was up going to the restroom and took a shower and back to her bed and had no shortness of breath. She states that she feels 75% better. Patient has diminished wheezes at this time. Patient will be discharged home in stable condition. Patient will receive a 5-day course of 40 mg of prednisone. Patient follows her PCP as well as her drier and pulverizer tender. Patient states that it is typical when she gets exacerbation of asthma that she will require several rounds of methylprednisolone before she is feeling better. Physical Exam Const alert Nutritional Appearance: obese Resp normal respiratory effort, no retractions, no use of accessory muscles and clear to auscultation bilaterally Cardio regular rate, regular rhythm and S1 normal heart sound Weight / BMI Weight Weight: 160 kg Body Mass Index (BMI) 55.2 ABG / Lab / Microbiology Data Result Diagrams: 05/19/21 16:03 05/19/21 16:03 Laboratory: Laboratory Results - last 24 hr 05/19/21 16:03: WBC 8.9, RBC 4.44, Hgb 12.2, Hct 39.2, MCV 88.3, MCH 27.5, MCHC 31.1 L, RDW Std Deviation 53.1 H, RDW Coeff of Naga 16.4 H, Plt Count 251, MPV 10.6, Immature Gran % (Auto) 0.800, Neut % (Auto) 87.7 H, Lymph % (Auto) 7.0 L, [place] % (Auto) 3.3, Eos % (Auto) 0.7, Baso % (Auto) 0.5, Absolute Neuts (auto) 7.8 H, Absolute Lymphs (auto) 0.62 L, Nucleated RBC % 0 05/19/21 16:03: Sodium 139, Potassium 4.1, Chloride 106, Carbon Dioxide 28.0, Anion Gap 5, BUN 20 H, Creatinine 0.84, Estim Creat Clear Calc 68.39, Est GFR (MDRD) Af Amer 89, Est GFR (MDRD) Non-Af 73, BUN/Creatinine Ratio 23.9 H, Glucose 114 H, Calcium 8.9 Microbiology: Microbiology 05/19/21 13:22 Mucosa - Nose SARS-CoV-2 Antigen (Rapid) - Final Radiography Diagnostic Testing: Radiology Impression Chest X-Ray 05/19/21 13:45 IMPRESSION: No acute abnormality is seen. Electronically Signed: Sean Cotton MD at 14:02 EDT , Service support , D/C Instructions Discharge Diet: 2000 mg Sodium Diet Call your doctor if you observe: Fever of 101 or Higher and Shortness of breath Meaningful Use Info Meaningful Use Diagnoses (Choose all that apply): None applicable Discharge Plan Admission Admit Date/Time: 05/19/21 16:25 Primary Reason for Your Visit: Asthma Exacerbation Attending Provider: Keanu Zhong Primary Care Provider: Butch Maddox SUPERINTENDENT PIPELINES Discharge Orders/Prescriptions Prescriptions: New prednisone 10 mg tablet 40 mg PO DAILY Qty: 20 RF: 0 Continued fluticasone propion-salmeterol [Wixela Inhub] 500-50 mcg/dose blister with device 1 inh inhalation BID Qty: 60 RF: 6 albuterol sulfate 90 mcg/actuation HFA aerosol inhaler 2 puff inhalation Q6H PRN (Reason: shortness of breath or wheezing) Qty: 8.5 RF: 6 meloxicam 7.5 MG tablet 7.5 mg PO BID RF: 0 omeprazole 20 MG capsule 40 mg PO DAILY RF: 0 furosemide 40 MG tablet 40 mg PO BID PRN (Reason: fluid overload) RF: 0 citalopram 40 MG tablet 40 mg PO DAILY RF: 0 potassium chloride 20 MEQ tablet 40 meq PO DAILY RF: 0 gabapentin 600 MG tablet 600 mg PO BID RF: 0 oxycodone-acetaminophen 1 TABLET tablet 1 tab PO QHS PRN PRN (Reason: Pain) RF: 0 pramipexole 0.5 MG tablet 1 mg PO QHS Qty: 1 RF: 0 valsartan 320 mg tablet 320 mg PO DAILY RF: 0 amitriptyline 50 mg tablet 50 mg PO QHS RF: 0 No Action cyclobenzaprine 10 MG tablet 10 mg PO QHS RF: 0 Referrals / Follow Up: Ventura Lo DO [STAFF PHYSICIAN] - None (next scheduled appointment) Butch Maddox SUPERINTENDENT PIPELINES, SUPERINTENDENT PIPELINES-C [Primary Care Provider] - Within 1 Week Disposition Disposition (needs filled in before D/C Order can be placed): Home, Self Care Charges/Coding Visit Charges OBSV E&M: 63359 Observation care discharge
[2021-05-20 08:33] VITALS: BP 139/82; PULSE 102; RESP 18; TEMP 37; O2SAT 96
[2021-05-20] MEDS: Pantoprazole Sodium 40 MG Tablet PO (08:44)
[2021-05-20] MEDS: Citalopram 40 MG TABLET PO (08:44)
[2021-05-20] MEDS: Losartan Potassium 100 MG Tablet PO (08:44)
[2021-05-20 11:10] VITALS: BP 128/76; PULSE 88; RESP 18; TEMP 36.9; O2SAT 97
== END 2021-05-20 11:10 | disposition home or self-care (01) ==
LOC: ED 14:51 → MS3 17:31
PROVIDERS: Emergency Provider Emergency Medicine; PCP Nurse Practitioner Family
DX: J45.901 Unspecified asthma with (acute) exacerbation (principal); E66.01 Morbid (severe) obesity due to excess calories; I10 Essential (primary) hypertension; G47.33 Obstructive sleep apnea (adult) (pediatric); G90.50 Complex regional pain syndrome I, unspecified; M79.7 Fibromyalgia; F41.9 Anxiety disorder, unspecified; F32.9 Major depressive disorder, single episode, unspecified; Z79.899 Other long term (current) drug therapy; G25.81 Restless legs syndrome; Z87.891 Personal history of nicotine dependence; Z68.43 Body mass index [BMI] 50.0-59.9, adult
CPT/HCPCS: 71045; 80048; 85025; 87426; 93005; 94002; 94003; 94640; 96374; 96376; 99218; 99285; A4216; G0378

== ENCOUNTER 2021-06-15 09:43 | Inpatient (IN) | payer MEDICARE, SELFPAY ==
[2021-06-15 09:44] VITALS: BP 138/113; PULSE 99; RESP 18; TEMP 36.2; O2SAT 98; BMI 55.2
--- NOTE | 2021-06-15 10:27 | RAD_ITS ---
STUDY: X-RAY CHEST REASON FOR EXAM: Female, 60 years old. Dyspnea TECHNIQUE: Single AP portable view of the chest. COMPARISON: Comparison is made with prior study 05/19/2021. FINDINGS: The lungs are clear and expanded. There is no demonstrated pleural abnormality. Normal size heart. Normal mediastinum and jimmy. Normal visualized pulmonary arteries. There is atherosclerotic tortuosity of the aortic arch and descending thoracic aorta. Normal visualized thoracic spine. Normal visualized ribs, clavicles, and shoulders. There is no demonstrated abnormality of the visualized soft tissue structures of the upper abdomen. RAD/Chest 1 View (Portable) IMPRESSION: Normal x-ray examination of the chest. Electronically Signed: Sean Cotton MD at 11:20 EDT , Service support ,
[2021-06-15] MEDS: Ipratropium/Albuterol Sulfate 3 ML AMPUL.NEB INHALATION ×2 (10:33→19:26)
[2021-06-15 10:36] VITALS: PULSE 97; RESP 24
[2021-06-15 10:51] LABS: Absolute Lymphocyte Count 1.19 X10^3/uL (0.83-4.51); Absolute Neutrophil Count 4.3 X10^3/uL (2.0-7.7); Basophil# 0.05 X10^3/uL; Basophil% 0.8 % (0-1); Eosinophil# 0.19 X10^3/uL; Eosinophils% 2.9 % (0-5); Hematocrit 40.9 % (37-47); Hemoglobin 12.8 g/dL (12.0-15.0); Lymphocyte # 1.19 X10^3/ul (0.83-4.51); Lymphocyte % 18.3 % (19-41); Mean Corp Hgb Conc 31.3 g/dL (32-36); Mean Corpuscular Hgb 27.6 pg (27.0-32.0); Mean Corpuscular Volume 88.1 fL (81-99); Mean Platelet Vol. 10.5 fl (6.2-12.0); Monocyte# 0.74 X10^3/uL; Monocyte% 11.4 % (0-10); NRBC Flagged by Analyzer 0 % (0-5); Neutrophil # 4.25 X10^3/uL (2.7-7.7); Neutrophil % 65.2 % (47-70); Platelet Count 278 K/mm3 (150-450); RBC Distribution Width CV 16.3 % (11.6-14.6); Red Blood Count 4.64 M/mm3 (4.2-5.4); White Blood Count 6.5 K/mm3 (4.4-11.0)
--- NOTE | 2021-06-15 10:56 | ED.VIS.DYS ---
HPI History of Present Illness Chief Complaint: Shortness of Breath Informant: patient Onset/Context/Timing Onset: Days (4) Context: gradual Timing: Continuous Quality: Positive for Dyspnea on exertion and Wheezing Worsened by: Exertion Relieved by: Rest Associated Symptoms cough, white sputum and green sputum; Negative for fever or chills Chest Pain: Positive for None Narrative Narrative: Patient presents with shortness of breath that has been getting worse over the past 4 days. Patient states it has been waxing and waning. Patient states that anytime she walks across the room she becomes short of breath. Patient states it is better with rest. Patient admits to a cough with some olivas and light green sputum. Patient denies any chest pain. Patient denies any nausea or vomiting. Patient also complains of redness to her left lower leg that has been getting worse over the past few weeks. Patient denies any fevers or chills. [facility] Medical History Anxiety Anxiety and depression Asthma Asthma exacerbation Benign essential HTN Bronchospasm Family history of diabetes mellitus (DM) Fibromyalgia Morbid obesity Obstructive sleep apnea Reflex sympathetic dystrophy Restless leg syndrome Home Medications meloxicam 7.5 mg PO BID 01/16/14 [History Last Taken 06/15/21] cyclobenzaprine 10 mg PO QHS 06/06/14 [History Last Taken 06/14/21] furosemide 40 mg PO BID PRN 06/13/17 [History Last Taken 06/14/21] citalopram 40 mg PO DAILY 08/25/18 [History Last Taken 06/15/21] potassium chloride 40 meq PO DAILY 11/01/18 [History Last Taken 06/15/21] gabapentin 600 mg PO BID 09/20/19 [History Last Taken 06/15/21] oxycodone-acetaminophen 1 tab PO QHS PRN PRN 09/20/19 [History Last Taken 1 Week Ago ~06/08/21] albuterol sulfate 90 mcg/actuation aerosol inhaler 2 puff INHALATION Q6H PRN #8.5 g 05/11/21 [Rx Last Taken 06/15/21] amitriptyline 50 mg PO QHS 05/19/21 [History Last Taken 06/14/21] valsartan 320 mg PO DAILY 05/19/21 [History Last Taken 06/15/21] hydrochlorothiazide 12.5 mg PO BID 06/15/21 [History Last Taken 06/15/21] montelukast 10 mg PO DAILY 06/15/21 [History Last Taken 06/15/21] omeprazole 40 mg PO DAILY 06/15/21 [History Last Taken 06/15/21] pramipexole 3 mg PO QHS 06/15/21 [History Last Taken 06/14/21] Allergy/AdvReac Type Severity Reaction Status Date / Time amlodipine AdvReac Swelling Verified 06/15/21 09:46 Family History Mother Hypertension Cancer Pancreatic Diabetes Father Cancer pancreatic Brother Diabetes Grandfather Diabetes Surgical History Chronic knee pain after total replacement of left knee joint H/O foot surgery History of hysterectomy History of tonsillectomy Hx of breast reduction, elective Social History Smoking Status: Former smoker ROS ROS ED Constitutional Constitutional ED: Denies chills or fever(s) Eyes Eyes: Denies blurry vision or change in vision ENT ENT ED: Denies rhinorrhea or sore throat Cardiovascular Cardiovascular: Denies chest pain or palpitations Respiratory/Chest Respiratory/Chest: Reports cough, dyspnea and sputum Gastrointestinal Gastrointestinal: Denies nausea or vomiting Genitourinary Genitourinary ED: Denies dysuria or hematuria Musculoskeletal Musculoskeletal: Denies back pain or neck pain Integumentary Reports rash; Denies abscess Neurologic Neurologic: Denies headache(s) or weakness Allergic/Immunologic Allergic/Immunologic ED: Denies mouth swelling or urticaria EXAM Physical Exam Const Vital Signs: 06/15/21 09:44 06/15/21 10:36 Temperature 97.2 F L Temperature Source Temporal Pulse Rate 99 97 Respiratory Rate 18 24 H Respiratory Pattern Normal Blood Pressure 138/113 H Blood Pressure Mean 121 Pulse Ox 98 Oxygen Delivery Method Room Air Positive well nourished, well developed and obese General Appearance ED: well developed Nutritional Appearance: obese HEENT Reports moist mucous membranes Neck supple and no JVD Resp normal respiratory effort Auscultation: wheezes expiratory wheezes and throughout Cardio regular rate, regular rhythm and no murmurs GI normal to inspection, nondistended, normoactive bowel sounds, non-tender and non-distended Palpation: soft Extremity normal to inspection General Extremety ED: Negative for edema or tenderness General Extremity: Negative for edema Neuro oriented x3, CN's II-XII intact bilaterally and no sensory deficits noted Sensorium / Orientation: alert Motor Exam: strength 5/5 throughout Psych mental status grossly normal Skin no rashes or lesions noted Skin Narrative: There is some mild erythema and warmth of the left lower leg up to the knee. There is no evidence of any abscess. There is no discharge or drainage. There is good pedal and posterior tibial pulse noted. There are no sensory deficits noted. MDM MDM MDM Narrative Medical decision making narrative: Patient was given a DuoNeb aerosol here. Patient was given a dose of Ancef. Portable 1 view chest x-ray was obtained. On my interpretation, lung enrique are clear. There is normal cardiac silhouette. Bony thorax is normal. There is no acute process noted. Radiologist also interpreted the x-ray and agrees. CBC and comprehensive metabolic profile were obtained were within normal limits. Patient states she had no improvement of her breathing after this. Patient was given a dose of Solu-Medrol. CTA of the chest was obtained. There is no evidence of pulmonary embolism or aortic dissection. Patient states she still feels short of breath whenever she tries to move or walk. Case was discussed with the hospitalist. He will admit the patient to his service. Patient understood and was agreeable with the plan. All questions were answered. Lab Data Attestation: I reviewed the patient's lab results. Labs: Laboratory Results - last 24 hr 06/15/21 06/15/21 10:45 10:45 WBC 6.5 RBC 4.64 Hgb 12.8 Hct 40.9 MCV 88.1 MCH 27.6 MCHC 31.3 L RDW Std Deviation 53.0 H RDW Coeff of Naga 16.3 H Plt Count 278 MPV 10.5 Immature Gran % (Auto) 1.400 H Neut % (Auto) 65.2 Lymph % (Auto) 18.3 L [place] % (Auto) 11.4 H Eos % (Auto) 2.9 Baso % (Auto) 0.8 Absolute Neuts (auto) 4.3 Absolute Lymphs (auto) 1.19 Nucleated RBC % 0 Sodium 140 Potassium 3.9 Chloride 106 Carbon Dioxide 31.0 Anion Gap 3 L BUN 14 Creatinine 0.80 Estim Creat Clear Calc 71.81 Est GFR (MDRD) Af Amer 93 Est GFR (MDRD) Non-Af 77 BUN/Creatinine Ratio 17.4 Glucose 111 H Calcium 8.8 Total Bilirubin 0.30 AST 24 ALT 32 Alkaline Phosphatase 139 H Total Protein 7.4 Albumin 3.1 L Globulin 4.3 H Albumin/Globulin Ratio 0.7 L Radiography Chest X-Ray - ED: 1 View, Read by ED Physician, Read by Radiologist and Normal Diagnostic Testing: Radiology Impression Chest X-Ray 06/15/21 10:27 IMPRESSION: Normal x-ray examination of the chest. Electronically Signed: Sean Cotton MD at 11:20 EDT , Service support , Chest CTA 06/15/21 13:16 IMPRESSION: No evidence of pulmonary embolism. Electronically Signed: Sean Cotton MD at 14:13 EDT , Service support , Treatment and Re-Evaluation Vital Sign Attestation:: Vital signs were reviewed prior to admission. They are stable. Discharge Plan Dx/Rx/DC Orders Clinical Impression: Asthma exacerbation, Cellulitis of left lower leg Disposition Disposition: Acute Care Hospital [facility] Discharge Date/Time: 06/15/21 16:38
[2021-06-15 11:08] LABS: ALB/GLOB Ratio 0.7 RATIO (0.9-2.4); AST(SGOT) 24 U/L (15-37); Alanine Aminotransfer ALT/SGPT 32 U/L (13-56); Albumin, Serum 3.1 g/dL (3.2-5.0); Alkaline Phosphatase 139 U/L (45-117); Anion Gap 3 (5-15); BUN 14 mg/dL (7-18); BUN/Creat Ratio 17.4 RATIO (10-20); Calcium,Total 8.8 mg/dL (8.5-10.1); Chloride 106 mmol/L (98-107); EST Glomerular Filtration Rate 77 mL/min (>60); Est Glom Filt Rate - Afr Amer 93 mL/min (>60); Estimated Creatinine Clearance 71.81 ml/min; Globulin 4.3 g/dL (2.2-4.2); Glucose 111 mg/dL (74-106); Potassium 3.9 mmol/L (3.5-5.1); Protein, Total 7.4 g/dL (6.4-8.2); Sodium Level 140 mmol/L (136-145)
[2021-06-15] MEDS: Cefazolin 1 GM/50 ML BAG IV (11:15)
[2021-06-15] MEDS: HYDROmorphone 1 MG/ML Syringe 0.5 MG IV (12:24)
--- NOTE | 2021-06-15 13:16 | CT_ITS ---
STUDY: CTA CHEST REASON FOR EXAM: Female, 60 years old. Possible pulmonary embolism. RADIATION DOSAGE (If Supplied By Facility): CTDIvol = ( 14.69 ) mGy, DLP = ( 477.72 ) mGycm TECHNIQUE: The examination was performed with the intravenous administration of IV 100ML ISOVUE 370. Post-processing of the angiographic images was performed, with multiplanar reformation and 3D reconstruction. Individualized dose optimization techniques were used for this CT. COMPARISON: Comparison is made with prior examination 09/06/2020. FINDINGS: Normal enhancement of the main pulmonary artery and right and left pulmonary arteries. Normal enhancement of the bilateral peripheral pulmonary arteries. There is no demonstrated pulmonary embolism. There is atherosclerotic calcification of the aortic arch with tortuosity. There is no demonstrated aortic dissection. Normal heart and pericardium. Normal mediastinum. Normal hilar regions. Normal visualized trachea and bronchi. The lungs are well expanded. Normal pulmonary parenchyma. Normal pleura. Normal chest wall structures. There are degenerative changes of thoracic spine. Electrodes from a TENS unit are seen overlying the posterior thoracic cord. Normal visualized upper abdomen. CT/CTA Chest W/WO Contrast IMPRESSION: No evidence of pulmonary embolism. Electronically Signed: Sean Cotton MD at 14:13 EDT , Service support ,
[2021-06-15] MEDS: MethylPREDNISolone 125 MG/2 ML Vial 80 MG IV (13:31)
--- NOTE | 2021-06-15 15:31 | NURSING ---
MED SURG DESTINI KRISHNA, LEFT LEG CELLULITIS
--- NOTE | 2021-06-15 15:56 | VDLE_ITS ---
Reason For Study: swelling Procedure LEFT Exam performed portable in patient room. GSV is normal. A preliminary report was called and/or faxed CFV is compressible, spontaneous, phasic, to PCU. competent, and demonstrates normal augmentation. FV is compressible, spontaneous, phasic, competent and demonstrates normal augmentation. POP V is compressible, spontaneous, phasic, competent and demonstrates normal augmentation. T/P Trunk is compressible. PTV is compressible. LT PerV is compressible. VL/Venous Duplex US, Unilateral Interpretation Summary There is no evidence of left lower extremity deep vein thrombosis. Left great s aphenous vein appears patent and compressible segmentally. Ordering Physician: Steve Mistry Referring Physician: OJ HENDRICKSON Performed By: Joaquina Santiago, [place], RVT
[2021-06-15 16:20] VITALS: BP 143/90; PULSE 82; PULSE 83; RESP 16; TEMP 36.7; O2SAT 95
[2021-06-15 17:00] VITALS: BP 130/82; PULSE 81; RESP 18; TEMP 36.3; O2SAT 94
[2021-06-15 17:09] VITALS: BMI 55.3
--- NOTE | 2021-06-15 17:12 | PCS.PANDOC ---
PANDEMIC DOCUMENTATION INITIATED: Date: 06/15/2021 Time: 1739
--- NOTE | 2021-06-15 19:17 | HP.PCM_ITS ---
HPI - General General Date of Admission: 06/15/21 HPI Narrative SAULO PUENTES, is a 60 F with morbid obesity and status post right BKA and asthma and who presents with shortness of breath and wheezing as well as left lower extremity swelling and discomfort. Patient also has some cough. Denies any trauma to the left lower extremity. Denies any fever or chills. Denies any nausea vomiting. [facility] Medical History Anxiety Anxiety and depression Asthma Asthma exacerbation Benign essential HTN Bronchospasm Family history of diabetes mellitus (DM) Fibromyalgia Morbid obesity Obstructive sleep apnea Reflex sympathetic dystrophy Restless leg syndrome Home Medications meloxicam 7.5 mg PO BID 01/16/14 [History Last Taken 06/15/21] cyclobenzaprine 10 mg PO QHS 06/06/14 [History Last Taken 06/14/21] furosemide 40 mg PO BID PRN 06/13/17 [History Last Taken 06/14/21] citalopram 40 mg PO DAILY 08/25/18 [History Last Taken 06/15/21] potassium chloride 40 meq PO DAILY 11/01/18 [History Last Taken 06/15/21] gabapentin 600 mg PO BID 09/20/19 [History Last Taken 06/15/21] oxycodone-acetaminophen 1 tab PO QHS PRN PRN 09/20/19 [History Last Taken 1 Week Ago ~06/08/21] albuterol sulfate 90 mcg/actuation aerosol inhaler 2 puff INHALATION Q6H PRN #8.5 g 05/11/21 [Rx Last Taken 06/15/21] amitriptyline 50 mg PO QHS 05/19/21 [History Last Taken 06/14/21] valsartan 320 mg PO DAILY 05/19/21 [History Last Taken 06/15/21] hydrochlorothiazide 12.5 mg PO BID 06/15/21 [History Last Taken 06/15/21] montelukast 10 mg PO DAILY 06/15/21 [History Last Taken 06/15/21] omeprazole 40 mg PO DAILY 06/15/21 [History Last Taken 06/15/21] pramipexole 3 mg PO QHS 06/15/21 [History Last Taken 06/14/21] Allergy/AdvReac Type Severity Reaction Status Date / Time amlodipine AdvReac Swelling Verified 06/15/21 09:46 Family History Mother Hypertension Cancer Pancreatic Diabetes Father Cancer pancreatic Brother Diabetes Grandfather Diabetes Surgical History Chronic knee pain after total replacement of left knee joint H/O foot surgery History of hysterectomy History of tonsillectomy Hx of breast reduction, elective Social History Smoking Status: Former smoker ROS ROS Narrative Denies any chest pain or abdominal pain or nausea vomiting. All other systems reviewed and essentially negative Vital Signs Vital Signs Vital Signs: 06/15/21 09:44 06/15/21 10:36 06/15/21 16:20 Temperature 36.2 C L 36.7 C Temperature Source Temporal Temporal Pulse Rate 99 97 83 Respiratory Rate 18 24 H 16 Respiratory Effort Respiratory Depth Respiratory Pattern Normal Blood Pressure 138/113 H 143/90 H Blood Pressure Mean 121 107 Blood Pressure Source Blood Pressure Position Blood Pressure Location Pulse Ox 98 95 Oxygen Delivery Method Room Air Room Air 06/15/21 17:00 06/15/21 17:32 Temperature 36.3 C L Temperature Source Temporal Pulse Rate 81 Respiratory Rate 18 Respiratory Effort Normal Non-Labored Respiratory Depth Normal Respiratory Pattern Normal Blood Pressure 130/82 H Blood Pressure Mean 98 Blood Pressure Source Monitor Blood Pressure Position Semi-Fowlers Blood Pressure Location Right Arm Pulse Ox 94 Oxygen Delivery Method Room Air Room Air Weight Weight: 160.1 kg Body Mass Index (BMI) 55.3 Physical Exam Narrative General. Obese, dyspneic at rest, mildly anxious appearing. HEENT exam. Oral mucosa moist. Neck neck is supple. Heart. First and second heart sounds heard no murmurs. Heart sounds slightly distant. Lungs. Diminished breath sounds bilaterally, only mild end expiratory wheezing noted. Abdomen. Obese. Nontender. Extremities. Status post right BKA. Prosthesis in place. Left lower extremity swelling, slightly warm slightly tender, some visibly distended superficial veins noted as well. 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 Conscious and alert oriented x3. Power 5 out of 5 in all extremities. Results Lab / Micro Data Result Diagrams: 06/15/21 10:45 06/15/21 10:45 Labs: Laboratory Results - last 24 hr 06/15/21 10:45: WBC 6.5, RBC 4.64, Hgb 12.8, Hct 40.9, MCV 88.1, MCH 27.6, MCHC 31.3 L, RDW Std Deviation 53.0 H, RDW Coeff of Naga 16.3 H, Plt Count 278, MPV 10.5, Immature Gran % (Auto) 1.400 H, Neut % (Auto) 65.2, Lymph % (Auto) 18.3 L, [place] % (Auto) 11.4 H, Eos % (Auto) 2.9, Baso % (Auto) 0.8, Absolute Neuts (auto) 4.3, Absolute Lymphs (auto) 1.19, Nucleated RBC % 0 06/15/21 10:45: Sodium 140, Potassium 3.9, Chloride 106, Carbon Dioxide 31.0, Anion Gap 3 L, BUN 14, Creatinine 0.80, Estim Creat Clear Calc 71.81, Est GFR (MDRD) Af Amer 93, Est GFR (MDRD) Non-Af 77, BUN/Creatinine Ratio 17.4, Glucose 111 H, Calcium 8.8, Total Bilirubin 0.30, AST 24, ALT 32, Alkaline Phosphatase 139 H, Total Protein 7.4, Albumin 3.1 L, Globulin 4.3 H, Albumin/Globulin Ratio 0.7 L Micro: Microbiology 06/15/21 10:48 Nasal Secretion SARS-CoV-2 Antigen (Rapid) - Final Radiology Impression Chest X-Ray 06/15/21 10:27 IMPRESSION: Normal x-ray examination of the chest. Electronically Signed: Sean Cotton MD at 11:20 EDT , Service support , Chest CTA 06/15/21 13:16 IMPRESSION: No evidence of pulmonary embolism. Electronically Signed: Sean Cotton MD at 14:13 EDT , Service support , Assessment & Plan Assessment/Plan (1) Asthma exacerbation: PLAN: Schedule inhaled bronchodilators. Start also on IV steroids. Oxygen supplementation if required. Was on Xolair at one point in time and at that time symptoms were very well controlled. Consider pulmonology consult. (2) Left leg swelling: PLAN: Persistence of left lower extremity swelling despite increasing doses of Lasix. Given mild tenderness will need to rule out DVT. Do a duplex venous ultrasound of the left lower extremity. (3) Morbid obesity: PLAN: Lifestyle modifications as able. Charges/Coding Visit Charges Inpatient E&M: 11457 Init Hosp L3
[2021-06-15 19:27] VITALS: PULSE 84; RESP 20
[2021-06-15] MEDS: Enoxaparin 40 MG/0.4 ML Syringe SC (21:42)
[2021-06-15] MEDS: Acetaminophen 325 MG Tablet 650 MG PO (21:43)
[2021-06-15] MEDS: MethylPREDNISolone 125 MG/2 ML Vial 60 MG IV (21:43)
[2021-06-15] MEDS: Meloxicam 7.5 MG Tablet PO (21:43)
[2021-06-15] MEDS: Amitriptyline 25 MG Tablet 50 MG PO (21:43)
[2021-06-15] MEDS: oxyCODONE 5 MG Tablet PO (21:43)
[2021-06-15] MEDS: hydroCHLOROthiazide 12.5mg 12.5 MG PO (21:43)
[2021-06-15] MEDS: Gabapentin 600 MG Tablet PO (21:43)
[2021-06-15] MEDS: cycloBENZAPRine HCl 10 MG Tablet PO (21:44)
[2021-06-15] MEDS: Pramipexole Di-HCl 1 MG Tablet 3 MG PO (21:44)
[2021-06-15 23:00] VITALS: BP 141/90; PULSE 86; RESP 18; TEMP 36.9; O2SAT 95
[2021-06-16] VITALS (12 sets, daily range): BP systolic 133–161; BP diastolic 67–89; PULSE 77–112; RESP 16–24; TEMP 36.7; O2SAT 92–96
[2021-06-16 05:39] LABS: Absolute Lymphocyte Count 1.09 X10^3/uL (0.83-4.51); Absolute Neutrophil Count 9.6 X10^3/uL (2.0-7.7); Basophil# 0.03 X10^3/uL; Basophil% 0.3 % (0-1); Hematocrit 39.7 % (37-47); Hemoglobin 12.3 g/dL (12.0-15.0); Lymphocyte # 1.09 X10^3/ul (0.83-4.51); Lymphocyte % 9.9 % (19-41); Mean Corpuscular Hgb 27.5 pg (27.0-32.0); Mean Corpuscular Volume 88.6 fL (81-99); Mean Platelet Vol. 10.8 fl (6.2-12.0); Monocyte# 0.21 X10^3/uL; Monocyte% 1.9 % (0-10); NRBC Flagged by Analyzer 0 % (0-5); Neutrophil # 9.56 X10^3/uL (2.7-7.7); Neutrophil % 86.7 % (47-70); Platelet Count 293 K/mm3 (150-450); RBC Distribution Width SD 52.1 fl (35.1-43.9); Red Blood Count 4.48 M/mm3 (4.2-5.4)
[2021-06-16 06:03] LABS: ALB/GLOB Ratio 0.7 RATIO (0.9-2.4); AST(SGOT) 14 U/L (15-37); Alanine Aminotransfer ALT/SGPT 28 U/L (13-56); Albumin, Serum 2.9 g/dL (3.2-5.0); Alkaline Phosphatase 125 U/L (45-117); Anion Gap 9 (5-15); BUN 13 mg/dL (7-18); BUN/Creat Ratio 14.3 RATIO (10-20); Calcium,Total 8.8 mg/dL (8.5-10.1); Chloride 103 mmol/L (98-107); Creatinine, Serum 0.91 mg/dL (0.55-1.02); EST Glomerular Filtration Rate 67 mL/min (>60); Est Glom Filt Rate - Afr Amer 81 mL/min (>60); Estimated Creatinine Clearance 63.13 ml/min; Globulin 4.1 g/dL (2.2-4.2); Glucose 177 mg/dL (74-106); Potassium 3.8 mmol/L (3.5-5.1); Sodium Level 136 mmol/L (136-145)
[2021-06-16] MEDS: Ipratropium/Albuterol Sulfate 3 ML AMPUL.NEB INHALATION ×5 (07:04→23:54)
--- NOTE | 2021-06-16 07:09 | CPS ---
patient wearing 2L bled into home bipap
[2021-06-16] MEDS: Enoxaparin 40 MG/0.4 ML Syringe SC ×2 (09:50→22:12)
[2021-06-16] MEDS: hydroCHLOROthiazide 12.5mg 12.5 MG PO ×2 (09:50→22:14)
[2021-06-16] MEDS: Gabapentin 600 MG Tablet PO ×2 (09:50→17:34)
[2021-06-16] MEDS: Pantoprazole Sodium 40 MG Tablet PO (09:50)
[2021-06-16] MEDS: Meloxicam 7.5 MG Tablet PO ×2 (09:50→22:13)
[2021-06-16] MEDS: Losartan Potassium 100 MG Tablet PO (09:50)
[2021-06-16] MEDS: Citalopram 40 MG TABLET PO (09:51)
[2021-06-16] MEDS: MethylPREDNISolone 125 MG/2 ML Vial 60 MG IV ×3 (09:51→22:11)
[2021-06-16] MEDS: Potassium Chloride Oral Tablet 20 MEQ 40 MEQ PO (09:51)
[2021-06-16] MEDS: 0.9% Saline Lock 10 ML Syringe IV ×4 (09:52→22:11)
[2021-06-16] MEDS: Acetaminophen 325 MG Tablet 650 MG PO (10:04)
[2021-06-16] MEDS: Furosemide 40 MG/4 ML Vial IV (11:00)
[2021-06-16] MEDS: oxyCODONE 5 MG Tablet PO ×2 (11:00→22:14)
--- NOTE | 2021-06-16 11:15 | CASEMGMT ---
RN STEFAN Face to Face with patient for initial transition planning/care coordination assessment. RN CM introduced self and role at [facility]. Patient lying in bed, alert and oriented. Patient willing to participate in assessment and is able to answer all questions appropriately. Care providers, pharmacy, and demographics verified. Patient wishes to discharge home, denies need for home health at this time. Patient states she has no further needs or concerns at this time. CM to follow for discharge planning needs that may arise. PCP: Varsha Specialists: Mirna, pain; Wally, underliner Preferred Pharmacy: [facility] Insurance: [employer] [facility] Prescription Benefit: yes Living Will/HPOA: none, would like to complete, SW updated LNOK: daughter, son Living Arrangements: Patient lives alone in a 2 story home. Patient states she is independent and able to ambulate stairs. Transportation: Self/son DME/HHC: Patient states she has shower chair, raised toilet, grab bars, walker, wheelchair, Bipap, nebulizer, and home oxygen at through [employer], no portability. [facility]. Disposition Plan: Patient to discharge home with family support and follow-up plans in place. Brigette GREEN, RN, CM
--- NOTE | 2021-06-16 13:56 | PN.HOSP_ITS ---
Subjective Subjective Patient was seen and examined. She complains of shortness of breath with exertion. She remains off oxygen. She also complains swelling and pain lower leg as well as erythema. Left lower extremity venous Doppler ultrasound was negative for acute DVT Objective Data Objective Data Vital Signs: Vital Signs Temp Pulse Resp BP Pulse Ox 98.1 F 92 24 H 161/67 H 92 06/16/21 09:47 06/16/21 10:55 06/16/21 10:55 06/16/21 09:47 06/16/21 10:55 Oxygen Flow Rate (L/min) 2 Oxygen Delivery Method Room Air Weight: 160.1 kg Body Mass Index (BMI) 55.3 Intake & Output: Intake and Output for Last 24 Hours 06/14/21 06/15/21 06/16/21 23:59 23:59 23:59 Intake Total 50 / 290 840 / 840 Output Total 750 / 750 Balance 50 / 290 90 / 90 Lab / Micro Data Result Diagrams: 06/16/21 04:54 06/16/21 04:54 Labs: Laboratory Results - last 24 hr 06/16/21 04:54: WBC 11.0, RBC 4.48, Hgb 12.3, Hct 39.7, MCV 88.6, MCH 27.5, MCHC 31.0 L, RDW Std Deviation 52.1 H, RDW Coeff of Naga 16.0 H, Plt Count 293, MPV 10.8, Immature Gran % (Auto) 1.200 H, Neut % (Auto) 86.7 H, Lymph % (Auto) 9.9 L , Cabell % (Auto) 1.9, Eos % (Auto) 0.0, Baso % (Auto) 0.3, Absolute Neuts (auto) 9.6 H, Absolute Lymphs (auto) 1.09, Nucleated RBC % 0 06/16/21 04:54: Sodium 136, Potassium 3.8, Chloride 103, Carbon Dioxide 24.0, Anion Gap 9, BUN 13, Creatinine 0.91, Estim Creat Clear Calc 63.13, Est GFR (MDRD) Af Amer 81, Est GFR (MDRD) Non-Af 67, BUN/Creatinine Ratio 14.3, Glucose 177 H, Calcium 8.8, Total Bilirubin 0.30, AST 14 L, ALT 28, Alkaline Phosphatase 125 H, Total Protein 7.0, Albumin 2.9 L, Globulin 4.1, Albumin/Globulin Ratio 0.7 L Micro: Microbiology 06/15/21 10:48 Nasal Secretion SARS-CoV-2 Antigen (Rapid) - Final Radiography Diagnostic Testing: Radiology Impression Chest CTA 06/15/21 13:16 IMPRESSION: No evidence of pulmonary embolism. Electronically Signed: Sean Cotton MD at 14:13 EDT , Service support , Venous Doppler Study 06/15/21 15:56 Interpretation Summary There is no evidence of left lower extremity deep vein thrombosis. Left great saphenous vein appears patent and compressible segmentally. Ordering Physician: Steve Mistry Referring Physician: OJ HENDRICKSON Performed By: Joaquina Santiago RDCS, RVT Physical Exam Narrative Physical exam: General: Alert, Oriented x3, Cooperative, No apparent distress, Well developed, on 2 L of oxygen, morbidly obese HEENT: Atraumatic Oral: Moist Mucosa Neck: Supple Lungs: Diminished to auscultation Cardiovascular: HS I+II, regular, no murmurs Abdomen: Bowel Sounds Present, Soft, Non Tender Extremities: No edema, right BKA, left lower extremity has patchy erythema, not indicating of acute cellulitis Assessment & Plan Assessment/Plan (1) Left leg swelling: PLAN: Persistence of left lower extremity swelling despite increasing doses of Lasix. Given mild tenderness will need to rule out DVT. Do a duplex venous ultrasound of the left lower extremity. (2) Asthma exacerbation: QUALIFIERS: Asthma severity: unspecified severity Asthma persistence: unspecified Qualified Code(s): J45.901 - Unspecified asthma with (acute) exacerbation PLAN: Schedule inhaled bronchodilators. Start also on IV steroids. Oxygen supplementation if required. Was on Xolair at one point in time and at that time symptoms were very well controlled. Consider pulmonology consult. (3) Morbid obesity: PLAN: 1. Acute asthma exacerbation, somehow improved, patient is not on oxygen but dyspneic on exertion Continue on IV Solu-Medrol 60 mg IV every 6 Continue breathing treatments Continue to encourage use of incentive spirometer 2. Left leg swelling, acute DVT ruled out, trial of Lasix 40 mg IV x1 Hold oral Lasix for now 3. Hypertension, fairly uncontrolled, continue for now on hydrochlorothiazide and losartan 4. Rest of chronic medical conditions including anxiety/depression Charges/Coding Visit Charges Inpatient E&M: 45667 Subs Hosp L2
--- NOTE | 2021-06-16 16:00 | CHAPLAIN ---
Type of Pastoral Visit _x__ Initial Visit ___ Follow-up Visit ___ On-call Visit ___ General Patient Visit ___ Spiritual Assessment ___ Family Conference ___ Bereavement ___ Rapid Response ___ Code Blue ___ Other (describe below) Pastoral Care Referral From _x__ Patient ___ Family ___ Nurse ___ Physician ___ Stapler Hand ___ Account Installer ___ Other (describe below) Sacrament/Intervention _x__ Active listening ___ Anointing ___ Mormon ___ Bereavement ___ Communion _x__ Christine exploration ___ _x__ Life review _x__ Prayer ___ Reconciliation ___ Sacrament of Sick _x__ Supportive presence ___ Wedding ___ Other (describe below) Pastoral Comments patient is very welcoming of spiritual care and gives much life review including her health issues and hospital stays; pt describes some goals for her life and where she finds her peace and nathalie; pt requests spiritual care and welcomes prayer for her recovery and her needs;
[2021-06-16] MEDS: cycloBENZAPRine HCl 10 MG Tablet PO (22:14)
[2021-06-16] MEDS: MELATONIN 3 MG TABLET PO (22:14)
[2021-06-16] MEDS: Pramipexole Di-HCl 1 MG Tablet 3 MG PO (22:14)
[2021-06-16] MEDS: Amitriptyline 25 MG Tablet 50 MG PO (22:14)
[2021-06-17 00:32] VITALS: BP 118/68; PULSE 92; RESP 18; TEMP 36.3; O2SAT 96
[2021-06-17] MEDS: Ipratropium/Albuterol Sulfate 3 ML AMPUL.NEB INHALATION ×3 (03:56→10:58)
--- NOTE | 2021-06-17 04:43 | NURSING ---
Pt resting in bed. coffee given per request.
[2021-06-17] MEDS: MethylPREDNISolone 125 MG/2 ML Vial 60 MG IV (06:31)
[2021-06-17] MEDS: 0.9% Saline Lock 10 ML Syringe IV (06:32)
[2021-06-17 06:39] VITALS: BP 128/64; PULSE 87; RESP 16; TEMP 36.2
[2021-06-17 07:00] VITALS: PULSE 86; RESP 18; O2SAT 93
[2021-06-17] MEDS: Acetaminophen 325 MG Tablet 650 MG PO (07:49)
[2021-06-17] MEDS: Citalopram 40 MG TABLET PO (07:50)
[2021-06-17] MEDS: Potassium Chloride Oral Tablet 20 MEQ 40 MEQ PO (07:50)
[2021-06-17] MEDS: Enoxaparin 40 MG/0.4 ML Syringe SC (07:50)
[2021-06-17] MEDS: oxyCODONE 5 MG Tablet PO (07:50)
[2021-06-17] MEDS: Pantoprazole Sodium 40 MG Tablet PO (07:51)
[2021-06-17] MEDS: Losartan Potassium 100 MG Tablet PO (07:51)
[2021-06-17] MEDS: hydroCHLOROthiazide 12.5mg 12.5 MG PO (07:51)
[2021-06-17] MEDS: Gabapentin 600 MG Tablet PO (07:51)
[2021-06-17 08:50] VITALS: BP 121/69; PULSE 81; RESP 20; TEMP 36.5; O2SAT 94
--- NOTE | 2021-06-17 10:40 | DCINST_ITS ---
Discharge Instructions Diet Discharge Diet: Low fat / Low cholesterol and 2000 mg Sodium Diet Activity Discharge Activity: Return to Normal Activity Follow Up Care Test Results: Test results from this visit will be discussed in further detail at your follow-up appointment, if applicable. Discharge Plan Admission Admit Date/Time: 06/15/21 15:56 Primary Reason for Your Visit: Acute Asthma exacerbation Attending Provider: Mary Grace Whatley Primary Care Provider: Butch Maddox NP Instructions Additional Instructions / Restrictions: Complete your steroid taper. Continue to use your inhaler as needed. Follow-up with Dr. Bradley as scheduled. Discharge Orders/Prescriptions Prescriptions: New prednisone 10 mg tablet See Taper mg PO DAILY Qty: 30 RF: 0 Continued albuterol sulfate 90 mcg/actuation HFA aerosol inhaler 2 puff inhalation Q6H PRN (Reason: shortness of breath or wheezing) Qty: 8.5 RF: 6 meloxicam 7.5 MG tablet 7.5 mg PO BID RF: 0 cyclobenzaprine 10 MG tablet 10 mg PO QHS RF: 0 furosemide 40 MG tablet 40 mg PO BID PRN (Reason: fluid overload) RF: 0 citalopram 40 MG tablet 40 mg PO DAILY RF: 0 potassium chloride 20 MEQ tablet 40 meq PO DAILY RF: 0 gabapentin 600 MG tablet 600 mg PO BID RF: 0 oxycodone-acetaminophen 1 TABLET tablet 2 tab PO QHS PRN PRN (Reason: Pain) RF: 0 valsartan 320 mg tablet 320 mg PO DAILY RF: 0 amitriptyline 50 mg tablet 50 mg PO QHS RF: 0 omeprazole 40 mg capsule,delayed release(DR/EC) 40 mg PO DAILY RF: 0 hydrochlorothiazide 12.5 mg capsule 12.5 mg PO BID RF: 0 montelukast 10 mg tablet 10 mg PO DAILY RF: 0 pramipexole 1.5 mg tablet 3 mg PO QHS RF: 0 Referrals / Follow Up: Elana Bradley MD [STAFF PHYSICIAN] - See Referral Note (as scheduled) Butch Maddox NP, UNDERGROUND TRUCK OPERATOR-C [Primary Care Provider] - Within 2 Weeks Disposition Discharge Orders: Discharge Patient (Routine); Ordered 06/17/21 Ordered By: Dr. Mary Grace Whatley
--- NOTE | 2021-06-17 10:46 | PCM.DC.SUM ---
Providers Date of Admission: 06/15/21 Date of Discharge: 06/17/21 Primary Care Physician: Oj Maddox, CANDI-C Reason For Visit: ASTHMA EXACERBATION, LEFT LEG CELLULITIS Diagnosis Discharge Diagnosis (1) Left leg swelling: Status: Resolved Code(s): M79.89 - Other specified soft tissue disorders (2) Asthma exacerbation: Status: Acute Code(s): J45.901 - Unspecified asthma with (acute) exacerbation Qualifiers: Asthma persistence: unspecified Asthma severity: unspecified severity Qualified Code(s): J45.901 - Unspecified asthma with (acute) exacerbation (3) Morbid obesity: Status: Chronic Code(s): E66.01 - Morbid (severe) obesity due to excess calories Medications at Discharge Home Medications meloxicam 7.5 mg PO BID 01/16/14 cyclobenzaprine 10 mg PO QHS 06/06/14 furosemide 40 mg PO BID PRN 06/13/17 citalopram 40 mg PO DAILY 08/25/18 potassium chloride 40 meq PO DAILY 11/01/18 gabapentin 600 mg PO BID 09/20/19 oxycodone-acetaminophen 2 tab PO QHS PRN PRN 09/20/19 albuterol sulfate 90 mcg/actuation aerosol inhaler 2 puff INHALATION Q6H PRN #8.5 g 05/11/21 amitriptyline 50 mg PO QHS 05/19/21 valsartan 320 mg PO DAILY 05/19/21 hydrochlorothiazide 12.5 mg PO BID 06/15/21 montelukast 10 mg PO DAILY 06/15/21 omeprazole 40 mg PO DAILY 06/15/21 pramipexole 3 mg PO QHS 06/15/21 prednisone See Taper PO DAILY #30 tab 06/17/21 Hospital Course Operations None Procedures None Summary of Care Provided Minutes Spent on Discharge: 50 Hospital Course: 60-year-old female with past medical history of morbid obesity, status post right BKA, and asthma who comes in with progressive shortness of breath, wheezing, cough, and left lower extremity swelling. Patient was saturating well on room air but was very dyspneic. She has significant wheezes on exam. COVID-19 rapid antigen was negative. She was admitted to PCU and managed as acute asthma exacerbation. She was managed on IV steroids, breathing treatment. Cultures were taken and were pending at discharge. Patient complained of left lower extremity swelling and erythema. No significant erythema was seen. She was given a dose of IV Lasix. She is usually on Lasix 40 mg twice daily. Patient continued to improve and was discharged home with no oxygen needs. Discharged on a steroid taper as well as to continue her inhalers. She will follow-up with pain management in the outpatient. Physical Exam Narrative Physical exam: General: Alert, Oriented x3, Cooperative, No apparent distress, Well developed, morbidly obese HEENT: Atraumatic Oral: Moist Mucosa Neck: Supple Lungs: Diminished to auscultation Cardiovascular: HS I+II, regular, no murmurs Abdomen: Bowel Sounds Present, Soft, Non Tender Extremities: No edema, right BKA, left lower extremity has patchy erythema, not indicative of acute cellulitis Weight / BMI Weight Weight: 160.1 kg Body Mass Index (BMI) 55.3 ABG / Lab / Microbiology Data Result Diagrams: 06/16/21 04:54 06/16/21 04:54 Microbiology: Microbiology 06/15/21 10:48 Nasal Secretion SARS-CoV-2 Antigen (Rapid) - Final Radiography Diagnostic Testing: Radiology Impression Venous Doppler Study 06/15/21 15:56 Interpretation Summary There is no evidence of left lower extremity deep vein thrombosis. Left great saphenous vein appears patent and compressible segmentally. Ordering Physician: Steve Mistry Referring Physician: OJ MADDOX Performed By: Joaquina Santiago RDCS, RVT D/C Instructions Discharge Diet: Low fat / Low cholesterol and 2000 mg Sodium Diet Meaningful Use Info Meaningful Use Diagnoses (Choose all that apply): None applicable Discharge Plan Admission Admit Date/Time: 06/15/21 15:56 Primary Reason for Your Visit: Acute Asthma exacerbation Attending Provider: Mary Grace Whatley Primary Care Provider: Oj Maddox NP Instructions Additional Instructions / Restrictions: Complete your steroid taper. Continue to use your inhaler as needed. Follow-up with Dr. Bradley as scheduled. Discharge Orders/Prescriptions Prescriptions: New prednisone 10 mg tablet See Taper mg PO DAILY Qty: 30 RF: 0 Continued albuterol sulfate 90 mcg/actuation HFA aerosol inhaler 2 puff inhalation Q6H PRN (Reason: shortness of breath or wheezing) Qty: 8.5 RF: 6 meloxicam 7.5 MG tablet 7.5 mg PO BID RF: 0 cyclobenzaprine 10 MG tablet 10 mg PO QHS RF: 0 furosemide 40 MG tablet 40 mg PO BID PRN (Reason: fluid overload) RF: 0 citalopram 40 MG tablet 40 mg PO DAILY RF: 0 potassium chloride 20 MEQ tablet 40 meq PO DAILY RF: 0 gabapentin 600 MG tablet 600 mg PO BID RF: 0 oxycodone-acetaminophen 1 TABLET tablet 2 tab PO QHS PRN PRN (Reason: Pain) RF: 0 valsartan 320 mg tablet 320 mg PO DAILY RF: 0 amitriptyline 50 mg tablet 50 mg PO QHS RF: 0 omeprazole 40 mg capsule,delayed release(DR/EC) 40 mg PO DAILY RF: 0 hydrochlorothiazide 12.5 mg capsule 12.5 mg PO BID RF: 0 montelukast 10 mg tablet 10 mg PO DAILY RF: 0 pramipexole 1.5 mg tablet 3 mg PO QHS RF: 0 Referrals / Follow Up: Elana Bradley MD [STAFF PHYSICIAN] - See Referral Note (as scheduled) Oj Maddox NP, MAINTENANCE PIPEFITTER-C [Primary Care Provider] - Within 2 Weeks Disposition Discharge Orders: Discharge Patient (Routine); Ordered 06/17/21 Ordered By: Dr. Mary Grace Whatley Charges/Coding Visit Charges Inpatient E&M: 94200 Disch Hosp
[2021-06-17 10:47] VITALS: O2SAT 92
[2021-06-17] MEDS: Meloxicam 7.5 MG Tablet PO (10:48)
[2021-06-17 10:59] VITALS: PULSE 88; RESP 18
--- NOTE | 2021-06-17 11:37 | NURSING ---
pt refused lasix at discharge
--- NOTE | 2021-06-20 14:12 | CASEMGMT ---
RN CM Discharge Follow-up Phone Call: MADHAVI: Thad Strata: 3 Call Date: 06/20/21 Discharge Date: 06/19/21 Time of Call: 1403 Duration: 1 min Admitting Diagnosis: Asthma, LLE cellulitis RN CM attempted to complete follow-up phone call after recent hospitalization. No answer, voice message left with return contact information.
== END 2021-06-17 11:59 | disposition home or self-care (01) | DRG 202 ==
LOC: ED 15:20 → PCU 16:28 → MS2 06-16 23:52
PROVIDERS: Admitting Provider Internal Medicine; Emergency Provider Emergency Medicine; PCP Nurse Practitioner Family; Visit Provider Internal Medicine
DX: J45.901 Unspecified asthma with (acute) exacerbation (principal); Z68.43 Body mass index [BMI] 50.0-59.9, adult; M79.89 Other specified soft tissue disorders; I10 Essential (primary) hypertension; M79.7 Fibromyalgia; Z20.822 Contact with and (suspected) exposure to COVID-19; G25.81 Restless legs syndrome; E66.01 Morbid (severe) obesity due to excess calories; G47.33 Obstructive sleep apnea (adult) (pediatric); F32.9 Major depressive disorder, single episode, unspecified; F41.9 Anxiety disorder, unspecified; Z79.1 Long term (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 non-steroidal anti-inflammatories (NSAID); Z79.899 Other long term (current) drug therapy; Z87.891 Personal history of nicotine dependence; Z89.511 Acquired absence of right leg below knee; Z96.652 Presence of left artificial knee joint
CPT/HCPCS: 36415; 71045; 71275; 80053; 85025; 87070; 87077; 87186; 87205; 87426; 93971; 94640; 99285; Q9967; A4216; J1940

== ENCOUNTER 2021-09-30 19:06 | Observation (INO) | payer MEDICARE, SELFPAY ==
[2021-09-30 19:07] VITALS: BP 153/103; PULSE 93; RESP 20; TEMP 36.8; O2SAT 95; BMI 57.4
[2021-09-30 19:14] VITALS: O2SAT 94
--- NOTE | 2021-09-30 19:52 | EKG12_ITS ---
Test Reason : SOB Blood Pressure : / mmHG Vent. Rate : 087 BPM Atrial Rate : 087 BPM P-R Int : 168 ms QRS Dur : 080 ms QT Int : 370 ms P-R-T Axes : 023 010 064 degrees QTc Int : 445 ms Normal sinus rhythm LOW VOLTAGE QRS, PRECORDIAL LEADS Confirmed by ELDER BORDEN, LOUIS ([id number]), scientific publications editor ANJUM BERNSTEIN ([id number]) on 10/05/2021 9:57:14 AM Referred By: HUNTER Confirmed By:LOUIS FRIEDMAN MD
--- NOTE | 2021-09-30 19:53 | ED.VIS.DYS ---
HPI History of Present Illness Chief Complaint: Asthma Informant: patient Narrative Narrative: Patient presents with dyspnea. She describes this as her asthma. She just had surgery for her left ankle. She had had an erosion based on the splint that she was in. This was cleaned out. She was placed on antibiotics. About 6 weeks prior she had had surgery on that ankle for ligamentous repair though. She has been having asthma exacerbations for the last several weeks. She was placed on steroids. It did initially get better but then it came back quickly. While she was in the hospital just recently it came back more. She coughs. She has a little bit of yellow sputum. She has never coughed up any blood. She has no chest pain. No pleuritic pain. No leg swelling. She has never had a DVT or PE. She has been on antibiotics steroids and she has nebulizer as well as MDI at home and is just not breaking. She states usually she gets better if she gets IV Solu-Medrol for a couple days. Patient states she is vaccinated against Covid and has had Covid. [facility] Medical History Anxiety Anxiety and depression Asthma Asthma exacerbation Benign essential HTN Bronchospasm Family history of diabetes mellitus (DM) Fibromyalgia Morbid obesity Obstructive sleep apnea Reflex sympathetic dystrophy Restless leg syndrome Home Medications meloxicam 7.5 mg PO BID 01/16/14 [History Last Taken 06/15/21] cyclobenzaprine 10 mg PO QHS 06/06/14 [History Last Taken 06/14/21] furosemide 40 mg PO BID PRN 06/13/17 [History Last Taken 06/14/21] citalopram 40 mg PO DAILY 08/25/18 [History Last Taken 06/15/21] potassium chloride 40 meq PO DAILY 11/01/18 [History Last Taken 06/15/21] gabapentin 600 mg PO BID 09/20/19 [History Last Taken 06/15/21] oxycodone-acetaminophen 2 tab PO QHS PRN PRN 09/20/19 [History Last Taken 1 Week Ago ~06/08/21] albuterol sulfate 90 mcg/actuation aerosol inhaler 2 puff INHALATION Q6H PRN #8.5 g 05/11/21 [Rx Last Taken 06/15/21] amitriptyline 50 mg PO QHS 05/19/21 [History Last Taken 06/14/21] valsartan 320 mg PO DAILY 05/19/21 [History Last Taken 06/15/21] hydrochlorothiazide 12.5 mg PO BID 06/15/21 [History Last Taken 06/15/21] montelukast 10 mg PO DAILY 06/15/21 [History Last Taken 06/15/21] omeprazole 40 mg PO DAILY 06/15/21 [History Last Taken 06/15/21] pramipexole 3 mg PO QHS 06/15/21 [History Last Taken 06/14/21] Allergy/AdvReac Type Severity Reaction Status Date / Time amlodipine AdvReac Swelling Verified 09/30/21 19:13 Family History Mother Hypertension Cancer Pancreatic Diabetes Father Cancer pancreatic Brother Diabetes Grandfather Diabetes Surgical History Chronic knee pain after total replacement of left knee joint H/O foot surgery History of hysterectomy History of tonsillectomy Hx of breast reduction, elective Social History Smoking Status: Former smoker ROS ROS ED Constitutional Constitutional ED: Denies chills or fever(s) Eyes Eyes: Denies blurry vision ENT ENT ED: Denies rhinorrhea or sore throat Cardiovascular Cardiovascular: Denies chest pain or palpitations Respiratory/Chest Respiratory/Chest: Reports cough, dyspnea, dyspnea on exertion and sputum Gastrointestinal Gastrointestinal: Denies abdominal pain, nausea or vomiting Genitourinary Genitourinary ED: Denies dysuria Musculoskeletal Musculoskeletal: Denies myalgias Integumentary Denies rash Neurologic Neurologic: Denies headache(s) Endocrine Endocrinology: Denies polydipsia or polyuria Hematologic/Lymphatic Hematologic/Lymphatic: Denies easy bleeding or easy bruising Allergic/Immunologic Allergic/Immunologic ED: Denies mouth swelling or urticaria EXAM Physical Exam Const Vital Signs: 09/30/21 19:07 09/30/21 19:14 09/30/21 20:12 Temperature 98.3 F Temperature Source Oral Pulse Rate 93 86 Respiratory Rate 20 H 20 H Respiratory Effort Short of Breath Labored Respiratory Pattern Tachypnea Tachypnea Blood Pressure 153/103 H Blood Pressure Mean 119 Pulse Ox 95 Oxygen Delivery Method Room Air Room Air 09/30/21 21:20 Temperature Temperature Source Pulse Rate 93 Respiratory Rate 19 H Respiratory Effort Respiratory Pattern Blood Pressure 147/83 H Blood Pressure Mean 104 Pulse Ox 94 Oxygen Delivery Method Room Air When I walk in the room, there are audible wheezes just from the door. However the patient looks relatively relaxed considering the amount of wheezing. Her saturations are good. She is looking at her phone at this time. Positive well nourished and unkempt General Appearance ED: unkempt; Negative for pallor HEENT atraumatic Eyes General Eye ED: Negative for pale conjunctiva or scleral icterus Neck no meningeal signs and no JVD Resp No clear to auscultation bilaterally Effort and Inspection: Negative for pain with movement Auscultation: wheezes; Negative for rales or rhonchi Cardio regular rate, regular rhythm and no murmurs GI non-tender and non-distended Palpation: soft Extremity Extremity Narrative: Patient has amputation right lower extremity. She has bandages on the left. But there is no erythema swelling edema or tenderness above these. Neuro oriented x3 Sensorium / Orientation: alert Psych mental status grossly normal Appearance: unkempt Skin General Skin Exam: Negative for pallor Lesions: no lesions Rashes: no rashes MDM MDM MDM Narrative Medical decision making narrative: Patient CBC shows normal white count hemoglobin and platelets. Electrolytes show no marked abnormalities. Troponin was negative. BNP was negative. D-dimer was elevated. With elevated D-dimer, dyspnea and 2 surgeries in the last 6 weeks, we did do CT scan of the chest. CT angiogram did not show pulmonary embolus nor infiltrative process. Covid was also negative. Patient's recheck. She still has wheezing. She has been on 2 courses of steroids. She is currently on doxycycline. She has not broken. She states she normally responds very well to IV Solu-Medrol for 1 or 2 days in the hospital. I am calling hospitalist to discuss the case. Lab Data Attestation: I reviewed the patient's lab results. Labs: Laboratory Results - last 24 hr 09/30/21 09/30/21 09/30/21 19:35 19:35 19:35 WBC 5.9 RBC 4.37 Hgb 12.1 Hct 36.2 L MCV 82.8 MCH 27.7 MCHC 33.4 RDW Std Deviation 46.8 H RDW Coeff of Naga 15.4 H Plt Count 247 MPV 10.6 Immature Gran % (Auto) 1.000 H Neut % (Auto) 58.5 Lymph % (Auto) 19.3 Cameron % (Auto) 15.2 H Eos % (Auto) 5.1 H Baso % (Auto) 0.9 Absolute Neuts (auto) 3.4 Absolute Lymphs (auto) 1.13 Nucleated RBC % 0 D-Dimer Quant (PE/DVT) 0.92 H* Sodium 139 Potassium 3.6 Chloride 104 Carbon Dioxide 29.0 Anion Gap 6 BUN 10 Creatinine 0.78 Estim Creat Clear Calc 72.72 Est GFR (MDRD) Af Amer 97 Est GFR (MDRD) Non-Af 80 BUN/Creatinine Ratio 12.9 Glucose 109 H Calcium 8.7 Troponin I High Sens 6 B-Natriuretic Peptide 09/30/21 19:35 WBC RBC Hgb Hct MCV MCH MCHC RDW Std Deviation RDW Coeff of Naga Plt Count MPV Immature Gran % (Auto) Neut % (Auto) Lymph % (Auto) Cameron % (Auto) Eos % (Auto) Baso % (Auto) Absolute Neuts (auto) Absolute Lymphs (auto) Nucleated RBC % D-Dimer Quant (PE/DVT) Sodium Potassium Chloride Carbon Dioxide Anion Gap BUN Creatinine Estim Creat Clear Calc Est GFR (MDRD) Af Amer Est GFR (MDRD) Non-Af BUN/Creatinine Ratio Glucose Calcium Troponin I High Sens B-Natriuretic Peptide 75.6 Radiography Diagnostic Testing: Clinical Impression(s) from Imaging Studies Chest X-Ray 09/30/21 20:09 IMPRESSION: There are no acute findings. Electronically Signed: Amaury Hooks MD at 20:38 EST , Service support , Chest CTA 09/30/21 20:30 IMPRESSION: No demonstrated pulmonary embolism or arterial dissection. Electronically Signed: Amaury Hooks MD at 21:35 EST , Service support , EKG Initial EKG: Comments: EKG done for dyspnea read by me shows normal sinus rhythm with rate of 87. No ventricular ectopy. Nonspecific ST and T wave changes but no sign of infarct or ischemia. FL interval, QRS duration and QTc normal. EKG is similar to 19 May of this year. Discharge Plan Dx/Rx/DC Orders Clinical Impression: Asthma exacerbation, Failure of outpatient treatment Disposition Disposition: Acute Care Hospital [facility]
[2021-09-30] MEDS: MethylPREDNISolone 125 MG/2 ML Vial IV (20:05)
--- NOTE | 2021-09-30 20:09 | RAD_ITS ---
STUDY: XR Chest 1 View 09/30/2021 8:02 PM REASON FOR EXAM: Female, 61 years old. CHEST PAIN cough COMPARISON: 06/15/2021 TECHNIQUE: XR Chest 1 View FINDINGS: There is no demonstrated pleural abnormality. Metallic leads in the spinal canal may suggest spinal stimulator leads. Normal heart size. Normal mediastinum. Normal jimmy. Prominent appearing increased interstitial lung markings. Normal visualized pulmonary arteries. There is atherosclerotic calcification of the aortic arch with tortuosity. There are diffuse degenerative changes of the visualized thoracic spine. There is degenerative osteoarthritis of the bilateral shoulders. There is no demonstrated abnormality of the visualized soft tissue structures of the upper abdomen. RAD/Chest 1 View (Portable) IMPRESSION: There are no acute findings. Electronically Signed: Amaury Hooks MD at 20:38 EST , Service support ,
[2021-09-30 20:11] LABS: Absolute Lymphocyte Count 1.13 X10^3/uL (0.83-4.51); Absolute Neutrophil Count 3.4 X10^3/uL (2.0-7.7); Basophil# 0.05 X10^3/uL; Basophil% 0.9 % (0-1); Eosinophils% 5.1 % (0-5); Hematocrit 36.2 % (37-47); Hemoglobin 12.1 g/dL (12.0-15.0); Lymphocyte # 1.13 X10^3/ul (0.83-4.51); Lymphocyte % 19.3 % (19-41); Mean Corp Hgb Conc 33.4 g/dL (32-36); Mean Corpuscular Hgb 27.7 pg (27.0-32.0); Mean Corpuscular Volume 82.8 fL (81-99); Mean Platelet Vol. 10.6 fl (6.2-12.0); Monocyte# 0.89 X10^3/uL; Monocyte% 15.2 % (0-10); NRBC Flagged by Analyzer 0 % (0-5); Neutrophil # 3.42 X10^3/uL (2.7-7.7); Neutrophil % 58.5 % (47-70); Platelet Count 247 K/mm3 (150-450); RBC Distribution Width CV 15.4 % (11.6-14.6); RBC Distribution Width SD 46.8 fl (35.1-43.9); Red Blood Count 4.37 M/mm3 (4.2-5.4); White Blood Count 5.9 K/mm3 (4.4-11.0)
[2021-09-30 20:12] VITALS: PULSE 86; RESP 20
[2021-09-30] MEDS: Ipratropium/Albuterol Sulfate 3 ML AMPUL.NEB INHALATION (20:12)
[2021-09-30] MEDS: Albuterol 2.5 MG/3 ML VIAL.NEB. INHALATION (20:12)
[2021-09-30 20:26] LABS: Anion Gap 6 (5-15); BUN 10 mg/dL (7-18); BUN/Creat Ratio 12.9 RATIO (10-20); Calcium,Total 8.7 mg/dL (8.5-10.1); Chloride 104 mmol/L (98-107); Creatinine, Serum 0.78 mg/dL (0.55-1.02); EST Glomerular Filtration Rate 80 mL/min (>60); Est Glom Filt Rate - Afr Amer 97 mL/min (>60); Estimated Creatinine Clearance 72.72 ml/min; Glucose 109 mg/dL (74-106); Potassium 3.6 mmol/L (3.5-5.1); Sodium Level 139 mmol/L (136-145); Troponin-I HS 6 pg/mL (3.0-54.0)
[2021-09-30 20:30] LABS: D-Dimer Quantitative (DVT/PE) 0.92 FEU/ug/m (0.27-0.49)
--- NOTE | 2021-09-30 20:30 | CT_ITS ---
EXAM: CT ANGIOGRAPHY CHEST WITHOUT AND WITH INTRAVENOUS CONTRAST CLINICAL INDICATION: pe Technologist Notes Ankle surgery 4 days ago. SOB since. Elevated d-dimer. TECHNIQUE: Helically acquired angiography images were obtained of the chest without and with intravenous contrast. This CT exam was performed using one or more of the following dose reduction techniques: automated exposure control, adjustment of the mA and/or kV according to patient size, and/or use of iterative reconstruction technique. This report was created using [employer] report generation technology. MIP reconstructed images were created and reviewed. CONTRAST: IV 100mL [id number] COMPARISON: Jun 15 2021 1:44pm FINDINGS: PULMONARY ARTERIES: No demonstrated pulmonary embolism or arterial dissection. AORTA: There is atherosclerotic calcification of the aortic arch with tortuosity and elongation of the aortic arch and descending thoracic aorta. Normal in caliber. No evidence of dissection. GREAT VESSELS OF AORTIC ARCH: Unremarkable. Normal in caliber. No evidence of dissection. LUNGS AND PLEURAL SPACES: Unremarkable. No mass. No consolidation or edema. No pleural effusion or thickening. No pneumothorax. HEART: Unremarkable. Heart size is normal. No pericardial effusion. No signs of right heart strain, ratio of right ventricle to left ventricle measures less than 1. MEDIASTINUM: Unremarkable. No mediastinal or hilar adenopathy. Esophagus is unremarkable. No hiatal hernia. THYROID: Unremarkable. No thyroid lesions. BONES/JOINTS: There are degenerative findings of the thoracic spine. No suspicious lytic or blastic abnormality. TUBES, LINES AND DEVICES: Electrodes from a TENS unit are seen overlying the posterior thoracic cord. CT/CTA Chest W/WO Contrast IMPRESSION: No demonstrated pulmonary embolism or arterial dissection. Electronically Signed: Amaury Hooks MD at 21:35 EST , Service support ,
[2021-09-30 20:39] LABS: BNP,B-Type NATRIURETIC PEPTIDE 75.6 pg/mL (0-100)
[2021-09-30] MEDS: Ibuprofen 400 MG Tablet PO (20:52)
[2021-09-30 21:20] VITALS: BP 147/83; PULSE 93; RESP 19; O2SAT 94
[2021-09-30] MEDS: oxyCODONE 5 MG Tablet 10 MG PO (21:56)
--- NOTE | 2021-09-30 21:59 | ED.RN ---
PT USING HOME BIPAP FOR DYSPNEA RELATED TO ASTHMA, STATES THIS IS WHAT SHE WOULD DO AT HOME. PT RESTING COMFORTABLY IN BED, NO SIGNS OF DISTRESS.
--- NOTE | 2021-09-30 22:28 | HP.PCM.HOS_ITS ---
HPI - General General Date of Admission: 09/30/21 HPI Narrative SAULO PUENTES, is a 61 F who presents with ongoing shortness of breath and a cough with some scant yellow sputum. She has had been having ongoing trouble with shortness of breath this month and had a course of steroids 40 mg x 5 days that ended on September 23. Subsequently she had another tapered course of steroids after this, and doxycycline currently. She denies chest pain or pleurisy. And she reported no leg swelling to the ED physician. Patient does state history of FAY and uses BiPAP on settings 09/07 for sleeping at night. She denies any fevers or chills or nausea/vomiting. She doesn't have diabetes, but she is morbidly obese and notes that she gained 40 pounds since Covid outbreak. At home her inhalers include albuterol and budesonide nebular with albuterol nebulizer. She is using her inhaler 4-5 times per day right secondary to worsened symptoms. Patient is vaccinated for Covid and had Covid previously. Covid test here was negative. On presentation here she was given IV Solu-Medrol and she was admitted due to ongoing failure of oral outpatient therapy. Patient does state that when she gets IV Solu-Medrol for 2 to 3 days she notices improvement. COVID negative and (rapid) and CTA negative for embolism [facility] Medical History (Updated 10/01/21 @ 00:08 by Akiko John) Anxiety Anxiety and depression Asthma Asthma exacerbation Below knee amputation Benign essential HTN BiPAP (biphasic positive airway pressure) dependence Bronchospasm Depression Family history of diabetes mellitus (DM) Fibromyalgia Former smoker GERD (gastroesophageal reflux disease) Hypertension Morbid obesity Obstructive sleep apnea Reflex sympathetic dystrophy Restless leg syndrome Rheumatoid arthritis Sleep apnea Home Medications meloxicam 7.5 mg PO BID 01/16/14 [History Last Taken 06/15/21] cyclobenzaprine 10 mg PO QHS 06/06/14 [History Last Taken 06/14/21] furosemide 40 mg PO BID PRN 06/13/17 [History Last Taken 06/14/21] citalopram 40 mg PO DAILY 08/25/18 [History Last Taken 06/15/21] potassium chloride 40 meq PO DAILY 11/01/18 [History Last Taken 06/15/21] gabapentin 600 mg PO BID 09/20/19 [History Last Taken 06/15/21] oxycodone-acetaminophen 2 tab PO QHS PRN PRN 09/20/19 [History Last Taken 1 Week Ago ~06/08/21] albuterol sulfate 90 mcg/actuation aerosol inhaler 2 puff INHALATION Q6H PRN #8.5 g 05/11/21 [Rx Last Taken 06/15/21] amitriptyline 50 mg PO QHS 05/19/21 [History Last Taken 06/14/21] valsartan 320 mg PO DAILY 05/19/21 [History Last Taken 06/15/21] hydrochlorothiazide 12.5 mg PO BID 06/15/21 [History Last Taken 06/15/21] montelukast 10 mg PO DAILY 06/15/21 [History Last Taken 06/15/21] omeprazole 40 mg PO DAILY 06/15/21 [History Last Taken 06/15/21] pramipexole 3 mg PO QHS 06/15/21 [History Last Taken 06/14/21] Allergy/AdvReac Type Severity Reaction Status Date / Time amlodipine AdvReac Swelling Verified 09/30/21 19:13 Family History Mother Hypertension Cancer Pancreatic Diabetes Father Cancer pancreatic Brother Diabetes Grandfather Diabetes Surgical History Chronic knee pain after total replacement of left knee joint H/O foot surgery History of hysterectomy History of tonsillectomy Hx of breast reduction, elective Social History Smoking Status: Former smoker ROS ROS Narrative + cough, SOB and wheezing. She does have headache. No abdominal pain, dysuria, hematuria, diarrhea/constipation, chest pain or racing + wound on leg. + prosthesis. no seizures or syncope or trouble seeing/hearing/swallowing Vital Signs Vital Signs Vital Signs: 09/30/21 19:07 09/30/21 19:14 09/30/21 20:12 Temperature 98.3 F Temperature Source Oral Pulse Rate 93 86 Respiratory Rate 20 H 20 H Respiratory Effort Short of Breath Labored Respiratory Pattern Tachypnea Tachypnea Blood Pressure 153/103 H Blood Pressure Mean 119 Pulse Ox 95 Oxygen Delivery Method Room Air Room Air 09/30/21 21:20 Temperature Temperature Source Pulse Rate 93 Respiratory Rate 19 H Respiratory Effort Respiratory Pattern Blood Pressure 147/83 H Blood Pressure Mean 104 Pulse Ox 94 Oxygen Delivery Method Room Air Weight Weight: 366 lb 6.532 oz Body Mass Index (BMI) 57.4 Physical Exam Narrative General Appearance ED: unkempt; Negative for pallor. On BIPAP (night time device) HEENT atraumatic Eyes General Eye ED: Negative for scleral icterus Neck no meningeal signs and no JVD Resp wheezes noted on chest ausculation Effort and Inspection: Negative for pain with movement Auscultation: wheezes; Negative for rales or rhonchi Cardio regular rate, regular rhythm and no murmurs GI non-tender and non-distended Palpation: soft Extremity Extremity Narrative: Patient has amputation right lower extremity. She has bandages on the left. But there is no erythema swelling edema or tenderness above these. Sensorium / Orientation: alert Psych mental status grossly normal Appearance: unkempt Skin General Skin Exam: Negative for pallor Lesions: does have reddening on her arms. Rashes: no rashes Results Lab / Micro Data Result Diagrams: 09/30/21 19:35 09/30/21 19:35 Labs: Laboratory Results - last 24 hr 09/30/21 19:35: WBC 5.9, RBC 4.37, Hgb 12.1, Hct 36.2 L, MCV 82.8, MCH 27.7, MCHC 33.4, RDW Std Deviation 46.8 H, RDW Coeff of Naga 15.4 H, Plt Count 247, MPV 10.6, Immature Gran % (Auto) 1.000 H, Neut % (Auto) 58.5, Lymph % (Auto) 19.3, [place] % (Auto) 15.2 H, Eos % (Auto) 5.1 H, Baso % (Auto) 0.9, Absolute Neuts (auto) 3.4, Absolute Lymphs (auto) 1.13, Nucleated RBC % 0 09/30/21 19:35: D-Dimer Quant (PE/DVT) 0.92 H* 09/30/21 19:35: Sodium 139, Potassium 3.6, Chloride 104, Carbon Dioxide 29.0, Anion Gap 6, BUN 10, Creatinine 0.78, Estim Creat Clear Calc 72.72, Est GFR (MDRD) Af Amer 97, Est GFR (MDRD) Non-Af 80, BUN/Creatinine Ratio 12.9, Glucose 109 H, Calcium 8.7, Troponin I High Sens 6 09/30/21 19:35: B-Natriuretic Peptide 75.6 Micro: Microbiology 09/30/21 20:10 Nasal Secretion SARS-CoV-2 Antigen (Rapid) - Final Radiology Impression Chest X-Ray 09/30/21 20:09 IMPRESSION: There are no acute findings. Electronically Signed: Amaury Hooks MD at 20:38 EST , Service support , Chest CTA 09/30/21 20:30 IMPRESSION: No demonstrated pulmonary embolism or arterial dissection. Electronically Signed: Amaury Hooks MD at 21:35 EST , Service support , Assessment & Plan Assessment/Plan (1) Asthma exacerbation: (2) Obstructive sleep apnea: (3) Morbid obesity: PLAN: Asthma Exacerbation FAY - No hypoxia or respiratory distress noted - Schedule duonebs while awake. - No significant concerns for infectious source - IV solumedrol 60 q24 hours, received 125 solumedrol in ED - continue home singulair - PEP and mobilization - BIPAP at night 12/8 - Tylenol and Zofran - Weight loss highly recomended Morbid obesity -Counseled on weight loss for improvement in pulmonary function HTN - Continue home meds We did discuss CODE STATUS and the patient is very sure she does not want to be intubated and she would also not want CPR - DNR/DNI. I encouraged her to write advance directive Continue regular diet Lovenox for DVT prophylaxis Randal Webb MD Charges/Coding Visit Charges OBSV E&M: 81714 Initial observation care L2
[2021-09-30 23:26] VITALS: BP 138/74; PULSE 89; RESP 19; TEMP 36.6; O2SAT 94
[2021-09-30 23:49] VITALS: BP 133/71; PULSE 84; RESP 20; TEMP 37; O2SAT 96; BMI 56.2
[2021-10-01] VITALS (10 sets, daily range): BP systolic 139–153; BP diastolic 76–89; PULSE 65–94; RESP 18–30; TEMP 35.6–36.7; O2SAT 92–97
--- NOTE | 2021-10-01 02:31 | PCS.PANDOC ---
PANDEMIC DOCUMENTATION INITIATED: Date: 09/30/2021 Time: 1900
[2021-10-01 04:13] LABS: Absolute Lymphocyte Count 0.66 X10^3/uL (0.83-4.51); Absolute Neutrophil Count 5.1 X10^3/uL (2.0-7.7); Basophil# 0.03 X10^3/uL; Basophil% 0.5 % (0-1); Hematocrit 39.1 % (37-47); Hemoglobin 12.4 g/dL (12.0-15.0); Lymphocyte # 0.66 X10^3/ul (0.83-4.51); Mean Corp Hgb Conc 31.7 g/dL (32-36); Mean Corpuscular Hgb 27.3 pg (27.0-32.0); Mean Corpuscular Volume 86.1 fL (81-99); Mean Platelet Vol. 10.5 fl (6.2-12.0); Monocyte% 1.7 % (0-10); NRBC Flagged by Analyzer 0 % (0-5); Neutrophil # 5.13 X10^3/uL (2.7-7.7); Neutrophil % 85.8 % (47-70); POSITIVE MORPHOLOGY YES; Platelet Count 260 K/mm3 (150-450); RBC Distribution Width CV 15.6 % (11.6-14.6); RBC Distribution Width SD 49.4 fl (35.1-43.9); Red Blood Count 4.54 M/mm3 (4.2-5.4)
[2021-10-01 04:42] LABS: Anion Gap 7 (5-15); BUN 9 mg/dL (7-18); BUN/Creat Ratio 10.1 RATIO (10-20); Calcium,Total 9.1 mg/dL (8.5-10.1); Chloride 106 mmol/L (98-107); Creatinine, Serum 0.89 mg/dL (0.55-1.02); EST Glomerular Filtration Rate 69 mL/min (>60); Est Glom Filt Rate - Afr Amer 83 mL/min (>60); Estimated Creatinine Clearance 63.73 ml/min; Glucose 221 mg/dL (74-106); Potassium 4.1 mmol/L (3.5-5.1); Sodium Level 139 mmol/L (136-145)
[2021-10-01] MEDS: Acetaminophen 325 MG Tablet 650 MG PO ×2 (06:55→13:20)
[2021-10-01] MEDS: Ipratropium/Albuterol Sulfate 3 ML AMPUL.NEB INHALATION ×6 (07:22→23:49)
--- NOTE | 2021-10-01 07:38 | CPS ---
pt has a wheeze in her throat but not in her lungs
--- NOTE | 2021-10-01 07:58 | PCM.PN.HOSP ---
Subjective Subjective No fever.Heart rate and blood pressure in acceptable limit. Regular rhythm. Pulse ox 92% on room air. Admitted with asthma exacerbation Patient does not have PFT done as an outpatient. She has missed/canceled outpatient pulmonary clinic visit. History of asthma onset as an adult mainly from the exposure from form. No fever. Not on home oxygen Complain of chest tightness, cough. Had 2 dosages of Covid vaccine but not booster dose. Eager to take booster dose of Covid, flu vaccine and pneumonia vaccine. Objective Data Objective Data Vital Signs: Vital Signs Temp Pulse Resp BP Pulse Ox 97.6 F L 72 18 150/89 H 92 10/01/21 04:27 10/01/21 07:10 10/01/21 07:10 10/01/21 04:27 10/01/21 04:27 Oxygen Delivery Method Room Air Weight: 358 lb 14.601 oz Body Mass Index (BMI) 56.2 Lab / Micro Data Result Diagrams: 10/01/21 03:35 10/01/21 03:35 Labs: Laboratory Results - last 24 hr 09/30/21 19:35: WBC 5.9, RBC 4.37, Hgb 12.1, Hct 36.2 L, MCV 82.8, MCH 27.7, MCHC 33.4, RDW Std Deviation 46.8 H, RDW Coeff of Naga 15.4 H, Plt Count 247, MPV 10.6, Immature Gran % (Auto) 1.000 H, Neut % (Auto) 58.5, Lymph % (Auto) 19.3, [place] % (Auto) 15.2 H, Eos % (Auto) 5.1 H, Baso % (Auto) 0.9, Absolute Neuts (auto) 3.4, Absolute Lymphs (auto) 1.13, Nucleated RBC % 0 09/30/21 19:35: D-Dimer Quant (PE/DVT) 0.92 H* 09/30/21 19:35: Sodium 139, Potassium 3.6, Chloride 104, Carbon Dioxide 29.0, Anion Gap 6, BUN 10, Creatinine 0.78, Estim Creat Clear Calc 72.72, Est GFR (MDRD) Af Amer 97, Est GFR (MDRD) Non-Af 80, BUN/Creatinine Ratio 12.9, Glucose 109 H, Calcium 8.7, Troponin I High Sens 6 09/30/21 19:35: B-Natriuretic Peptide 75.6 10/01/21 03:35: WBC 6.0, RBC 4.54, Hgb 12.4, Hct 39.1, MCV 86.1, MCH 27.3, MCHC 31.7 L D, RDW Std Deviation 49.4 H, RDW Coeff of Naga 15.6 H, Plt Count 260, MPV 10.5, Immature Gran % (Auto) 1.000 H, Neut % (Auto) 85.8 H, Lymph % (Auto) 11.0 L, [place] % (Auto) 1.7, Eos % (Auto) 0.0, Baso % (Auto) 0.5, Absolute Neuts (auto) 5.1, Absolute Lymphs (auto) 0.66 L, Nucleated RBC % 0 10/01/21 03:35: Sodium 139, Potassium 4.1, Chloride 106, Carbon Dioxide 26.0, Anion Gap 7, BUN 9, Creatinine 0.89, Estim Creat Clear Calc 63.73, Est GFR (MDRD) Af Amer 83, Est GFR (MDRD) Non-Af 69, BUN/Creatinine Ratio 10.1, Glucose 221 H, Calcium 9.1 Micro: Microbiology 09/30/21 20:10 Nasal Secretion SARS-CoV-2 Antigen (Rapid) - Final Radiography Diagnostic Testing: Radiology Impression Chest X-Ray 09/30/21 20:09 IMPRESSION: There are no acute findings. Electronically Signed: Amaury Hooks MD at 20:38 EST , Service support , Chest CTA 09/30/21 20:30 IMPRESSION: No demonstrated pulmonary embolism or arterial dissection. Electronically Signed: Amaury Hooks MD at 21:35 EST , Service support , Physical Exam Narrative General: Alert, Oriented x3, Cooperative, morbid obesity BMI 56.2 kg/m? HEENT: Atraumatic, PERRLA, EOMI, Normocephalic Oral: No Gingival or Mucosal Lesions/ Ulcerations Neck: Supple, No JVD, Negative Carotid Bruits Lungs: Air entry diminished bilaterally. Expiratory phase prolonged. Bilateral wheezing. Cardiovascular: Regular rate, Regular Rhythm, Normal S1, Normal S2, No murmurs Abdomen: Bowel Sounds Present, Soft, Non Tender, Non-Distended : No renal angle tenderness. No suprapubic tenderness. Extremities: No edema, Capillary Refill Less than 3 Seconds Skin: No rashes, No breakdown Musculoskeletal: Right below-knee amputation. Uses prosthesis. No Tenderness to Palpation of Joints or Extremities Neurological: Cranial nerves II-XII grossly intact, DTR 2+/4 and Symmetrical, Neuro grossly intact Psych/Mental Status: Mild anxiety. Assessment & Plan Assessment/Plan (1) Asthma exacerbation: (2) Obstructive sleep apnea: (3) Morbid obesity: PLAN: Asthma Exacerbation exact precipitating factor unclear rule out viral bronchitis: COVID-19 antigen rapid negative. Flu and RSV panel ordered. On a scheduled bronchodilator, IV Solu-Medrol, incentive spirometry, and Mucinex. On Singulair currently on room air. Tachypnea has improved. Advised Covid booster dose after asthma exacerbation improvement. Flu and pneumonia vaccine at time of discharge. Recommended pulmonary clinic visit. Obstructive sleep apnea on BiPAP: ESRD 12/8 at night. Morbid obesity: Weight loss counseling. HTN: Continue home meds CODE STATUS: DNR CC arrest no intubation. Lovenox for DVT prophylaxis Charges/Coding Visit Charges Inpatient E&M: 15371 Subs Hosp L2
[2021-10-01] MEDS: Losartan Potassium 100 MG Tablet PO (09:22)
[2021-10-01] MEDS: hydroCHLOROthiazide 12.5mg 12.5 MG PO ×2 (09:22→20:03)
[2021-10-01] MEDS: Pantoprazole Sodium 40 MG Tablet PO (09:23)
[2021-10-01] MEDS: Enoxaparin 40 MG/0.4 ML Syringe SC ×2 (09:23→21:19)
[2021-10-01] MEDS: Citalopram 40 MG TABLET PO (09:23)
[2021-10-01] MEDS: Gabapentin 600 MG Tablet PO ×2 (09:23→20:04)
[2021-10-01] MEDS: Montelukast 10 MG Tablet PO (09:23)
[2021-10-01] MEDS: Potassium Chloride Oral Tablet 20 MEQ 40 MEQ PO (09:24)
[2021-10-01] MEDS: MethylPREDNISolone 125 MG/2 ML Vial 60 MG IV (09:24)
[2021-10-01] MEDS: Ketorolac 15 MG/ML Vial IV (09:39)
[2021-10-01] MEDS: 0.9% Saline Lock 10 ML Syringe IV (09:43)
--- NOTE | 2021-10-01 14:49 | NURSING ---
Call light is on and this nurse goes in room to answer it. Pt is hysterically crying while laying in bed. Pt able to stop crying long enough to tell this nurse that her friend from elementary school is in the ICU at [place] d/t [facility] and they are going to extubate her. PT started crying hysterically again and asked for something to help her calm down and also asked if her boyfriend could come up and be with her and give her support. This nurse said that he could come just this one time. Pt understands. Dr. Campoverde aware and said that he was going to order pt Buspar.
[2021-10-01] MEDS: busPIRone 5 MG Tablet 10 MG PO (15:53)
[2021-10-01] MEDS: oxyCODONE 5 MG Tablet 10 MG PO (19:58)
[2021-10-01] MEDS: cycloBENZAPRine HCl 10 MG Tablet PO (20:02)
[2021-10-01] MEDS: Amitriptyline 25 MG Tablet 50 MG PO (20:03)
[2021-10-01] MEDS: Pramipexole Di-HCl 1 MG Tablet 3 MG PO (20:03)
[2021-10-01] MEDS: Doxycycline 100 MG CAPSULE PO (20:03)
[2021-10-02] VITALS (12 sets, daily range): BP systolic 127–149; BP diastolic 71–89; PULSE 83–105; RESP 16–24; TEMP 36.4–36.9; O2SAT 93–96
[2021-10-02] MEDS: busPIRone 5 MG Tablet 10 MG PO ×3 (00:55→20:27)
[2021-10-02] MEDS: Ipratropium/Albuterol Sulfate 3 ML AMPUL.NEB INHALATION ×6 (03:46→23:30)
[2021-10-02] MEDS: Benzonatate 100 MG Capsule PO ×5 (03:57→23:38)
[2021-10-02 05:12] LABS: Absolute Lymphocyte Count 0.81 X10^3/uL (0.83-4.51); Absolute Neutrophil Count 14.7 X10^3/uL (2.0-7.7); Basophil# 0.03 X10^3/uL; Basophil% 0.2 % (0-1); Hematocrit 37.7 % (37-47); Hemoglobin 12.2 g/dL (12.0-15.0); Lymphocyte # 0.81 X10^3/ul (0.83-4.51); Mean Corp Hgb Conc 32.4 g/dL (32-36); Mean Corpuscular Volume 86.5 fL (81-99); Mean Platelet Vol. 10.6 fl (6.2-12.0); Monocyte% 3.7 % (0-10); NRBC Flagged by Analyzer 0 % (0-5); Neutrophil # 14.74 X10^3/uL (2.7-7.7); Neutrophil % 90.5 % (47-70); Platelet Count 290 K/mm3 (150-450); RBC Distribution Width CV 16.1 % (11.6-14.6); RBC Distribution Width SD 51.1 fl (35.1-43.9); Red Blood Count 4.36 M/mm3 (4.2-5.4); White Blood Count 16.3 K/mm3 (4.4-11.0)
[2021-10-02 05:38] LABS: Anion Gap 8 (5-15); BUN 19 mg/dL (7-18); BUN/Creat Ratio 19.4 RATIO (10-20); Chloride 105 mmol/L (98-107); Creatinine, Serum 0.98 mg/dL (0.55-1.02); EST Glomerular Filtration Rate 61 mL/min (>60); Est Glom Filt Rate - Afr Amer 74 mL/min (>60); Estimated Creatinine Clearance 57.88 ml/min; Glucose 180 mg/dL (74-106); Sodium Level 138 mmol/L (136-145)
--- NOTE | 2021-10-02 07:52 | PN.HOSP_ITS ---
Subjective Subjective Patient breathing is better with less wheezing. No fever or chills. Pulse ox 94% on room air. Objective Data Objective Data Vital Signs: Vital Signs Temp Pulse Resp BP Pulse Ox 97.5 F L 84 16 149/81 H 96 10/02/21 07:40 10/02/21 07:48 10/02/21 07:48 10/02/21 07:40 10/02/21 07:48 Oxygen Flow Rate (L/min) 2 Oxygen Delivery Method Nasal Cannula Weight: 358 lb 14.601 oz Body Mass Index (BMI) 56.2 Intake & Output: Intake and Output for Last 24 Hours 09/30/21 10/01/21 10/02/21 23:59 23:59 23:59 Intake Total 920 / 1320 640 / 640 Output Total 1450 / 1450 Balance -530 / -130 640 / 640 Lab / Micro Data Result Diagrams: 10/02/21 04:39 10/02/21 04:39 Labs: Laboratory Results - last 24 hr 10/02/21 04:39: WBC 16.3 H, RBC 4.36, Hgb 12.2, Hct 37.7, MCV 86.5, MCH 28.0, MCHC 32.4, RDW Std Deviation 51.1 H, RDW Coeff of Naga 16.1 H, Plt Count 290, MPV 10.6, Immature Gran % (Auto) 0.600, Neut % (Auto) 90.5 H, Lymph % (Auto) 5.0 L, [place] % (Auto) 3.7, Eos % (Auto) 0.0, Baso % (Auto) 0.2, Absolute Neuts (auto) 14.7 H, Absolute Lymphs (auto) 0.81 L, Nucleated RBC % 0 10/02/21 04:39: Sodium 138, Potassium 4.0, Chloride 105, Carbon Dioxide 25.0, Anion Gap 8, BUN 19 H, Creatinine 0.98, Estim Creat Clear Calc 57.88, Est GFR (MDRD) Af Amer 74, Est GFR (MDRD) Non-Af 61, BUN/Creatinine Ratio 19.4, Glucose 180 H, Calcium 9.0 Micro: Microbiology 09/30/21 20:10 Nasal Secretion SARS-CoV-2 Antigen (Rapid) - Final Physical Exam Narrative General: Alert, Oriented x3, Cooperative, morbid obesity BMI 56.2 kg/m? HEENT: Atraumatic, PERRLA, EOMI, Normocephalic Oral: No Gingival or Mucosal Lesions/ Ulcerations Neck: Supple, No JVD, Negative Carotid Bruits Lungs: Air entry diminished bilaterally. Expiratory phase prolonged. Wheezing sound has improved. Hypoxia resolved. Cardiovascular: Regular rate, Regular Rhythm, Normal S1, Normal S2, No murmurs Abdomen: Bowel Sounds Present, Soft, Non Tender, Non-Distended : No renal angle tenderness. No suprapubic tenderness. Extremities: No edema, Capillary Refill Less than 3 Seconds Skin: No rashes, No breakdown Musculoskeletal: Right below-knee amputation. Uses prosthesis. No Tenderness to Palpation of Joints or Extremities Neurological: Cranial nerves II-XII grossly intact, DTR 2+/4 and Symmetrical, Neuro grossly intact Psych/Mental Status: Mild anxiety. Assessment & Plan Assessment/Plan (1) Asthma exacerbation: (2) Obstructive sleep apnea: (3) Morbid obesity: PLAN: Asthma Exacerbation exact precipitating factor unclear rule out viral bronchitis: COVID-19 antigen rapid negative. Flu and RSV panel ordered. On a scheduled bronchodilator, IV Solu-Medrol, incentive spirometry, and Mucinex. On Singulair currently on room air. Tachypnea has improved. Advised Covid booster dose after asthma exacerbation improvement. Flu and pneumonia vaccine at time of discharge. Recommended pulmonary clinic visit. 10/02: Flu panel was ordered but not done. Solu-Medrol dose increased. Most li lashell discharge tomorrow on prednisone taper. Follow-up in pulmonary clinic. Patient also has a stage II wound on the left side of ankle region, malleolar. No purulent drainage or signs of inflammation. Obstructive sleep apnea on BiPAP: On BiPAP 12/8 at night. Morbid obesity: Weight loss counseling. HTN: Continue home meds CODE STATUS: DNR CC arrest no intubation. Lovenox for DVT prophylaxis Charges/Coding Visit Charges Inpatient E&M: 97075 Subs Hosp L2
[2021-10-02] MEDS: Enoxaparin 40 MG/0.4 ML Syringe SC ×2 (08:15→20:28)
[2021-10-02] MEDS: Potassium Chloride Oral Tablet 20 MEQ 40 MEQ PO (08:16)
[2021-10-02] MEDS: Losartan Potassium 100 MG Tablet PO (08:16)
[2021-10-02] MEDS: hydroCHLOROthiazide 12.5mg 12.5 MG PO ×2 (08:16→20:27)
[2021-10-02] MEDS: Doxycycline 100 MG CAPSULE PO ×2 (08:17→20:27)
[2021-10-02] MEDS: Gabapentin 600 MG Tablet PO ×2 (08:17→20:27)
[2021-10-02] MEDS: Montelukast 10 MG Tablet PO (08:17)
[2021-10-02] MEDS: Citalopram 40 MG TABLET PO (08:17)
[2021-10-02] MEDS: Pantoprazole Sodium 40 MG Tablet PO (08:17)
[2021-10-02] MEDS: 0.9% Saline Lock 10 ML Syringe IV ×2 (12:52→17:04)
[2021-10-02] MEDS: oxyCODONE 5 MG Tablet 10 MG PO (20:27)
[2021-10-02] MEDS: cycloBENZAPRine HCl 10 MG Tablet PO (20:28)
[2021-10-02] MEDS: Amitriptyline 25 MG Tablet 50 MG PO (20:28)
[2021-10-02] MEDS: Pramipexole Di-HCl 1 MG Tablet 3 MG PO (20:28)
[2021-10-03 03:15] VITALS: PULSE 88; RESP 21
[2021-10-03] MEDS: Ipratropium/Albuterol Sulfate 3 ML AMPUL.NEB INHALATION ×2 (03:15→07:17)
[2021-10-03 03:33] VITALS: BP 121/75; PULSE 68; RESP 20; TEMP 36.7; O2SAT 95
[2021-10-03] MEDS: Benzonatate 100 MG Capsule PO (05:01)
[2021-10-03 05:52] LABS: Absolute Lymphocyte Count 0.92 X10^3/uL (0.83-4.51); Absolute Neutrophil Count 13.6 X10^3/uL (2.0-7.7); Basophil# 0.02 X10^3/uL; Basophil% 0.1 % (0-1); Hematocrit 37.3 % (37-47); Hemoglobin 11.9 g/dL (12.0-15.0); Lymphocyte # 0.92 X10^3/ul (0.83-4.51); Lymphocyte % 5.9 % (19-41); Mean Corp Hgb Conc 31.9 g/dL (32-36); Mean Corpuscular Hgb 27.7 pg (27.0-32.0); Mean Corpuscular Volume 86.7 fL (81-99); Mean Platelet Vol. 10.4 fl (6.2-12.0); Monocyte# 0.74 X10^3/uL; Monocyte% 4.8 % (0-10); NRBC Flagged by Analyzer 0 % (0-5); Neutrophil # 13.63 X10^3/uL (2.7-7.7); Neutrophil % 87.7 % (47-70); Platelet Count 289 K/mm3 (150-450); RBC Distribution Width CV 16.5 % (11.6-14.6); RBC Distribution Width SD 52.2 fl (35.1-43.9); White Blood Count 15.6 K/mm3 (4.4-11.0)
[2021-10-03 06:20] LABS: Anion Gap 6 (5-15); BUN 22 mg/dL (7-18); BUN/Creat Ratio 26.6 RATIO (10-20); Calcium,Total 9.2 mg/dL (8.5-10.1); Chloride 106 mmol/L (98-107); Creatinine, Serum 0.83 mg/dL (0.55-1.02); EST Glomerular Filtration Rate 74 mL/min (>60); Est Glom Filt Rate - Afr Amer 90 mL/min (>60); Estimated Creatinine Clearance 68.34 ml/min; Glucose 155 mg/dL (74-106); Potassium 4.2 mmol/L (3.5-5.1); Sodium Level 138 mmol/L (136-145)
[2021-10-03] MEDS: Pantoprazole Sodium 40 MG Tablet PO (08:00)
[2021-10-03] MEDS: busPIRone 5 MG Tablet 10 MG PO (08:00)
[2021-10-03] MEDS: Losartan Potassium 100 MG Tablet PO (08:00)
[2021-10-03] MEDS: hydroCHLOROthiazide 12.5mg 12.5 MG PO (08:00)
[2021-10-03] MEDS: Montelukast 10 MG Tablet PO (08:01)
[2021-10-03] MEDS: Gabapentin 600 MG Tablet PO (08:01)
[2021-10-03] MEDS: Citalopram 40 MG TABLET PO (08:01)
[2021-10-03] MEDS: Enoxaparin 40 MG/0.4 ML Syringe SC (08:01)
[2021-10-03] MEDS: Doxycycline 100 MG CAPSULE PO (08:02)
[2021-10-03] MEDS: Potassium Chloride Oral Tablet 20 MEQ 40 MEQ PO (08:02)
[2021-10-03] MEDS: Ibuprofen 400 MG Tablet PO (08:04)
--- NOTE | 2021-10-03 08:48 | PCM.DC ---
Discharge Instructions Diet Discharge Diet: Low fat / Low cholesterol, 1800 Calorie Control Diet and 2000 mg Sodium Diet Activity Discharge Activity: Return to Normal Activity and May Not Drive Weight Bearing Status: Weight bearing as tolerated Dressing / Incision Call your doctor if you observe: Fever of 101 or Higher, Coldness, Increased Pain, Numbness or Tingling, Change in Color, Inability to urinate, Inability to have a bowel movement, Using more than 1 pad per hour, Shortness of breath, Dizziness, Fainting spells, Swelling in the ankles, Chest pain, Prolonged hiccupping, Increased palpitations (irregular heartbeat), Calf discomfort and Uncontrolled pain Follow Up Care Test Results: Test results from this visit will be discussed in further detail at your follow-up appointment, if applicable. Discharge Plan Admission Admit Date/Time: 10/01/21 00:04 Primary Reason for Your Visit: Asthma exacerbation Attending Provider: Laron Campoverde Primary Care Provider: Butch Maddox AREA DEVELOPMENT MANAGER Discharge Orders/Prescriptions Prescriptions: New benzonatate 100 mg Capsule 100 mg PO Q4H PRN PRN (Reason: cough) Qty: 0 RF: 0 prednisone 20 mg tablet 20 mg PO DAILY Qty: 20 RF: 0 buspirone 10 mg tablet 10 mg PO BID Qty: 30 RF: 0 Continued albuterol sulfate 90 mcg/actuation HFA aerosol inhaler 2 puff inhalation Q6H PRN (Reason: shortness of breath or wheezing) Qty: 8.5 RF: 6 cyclobenzaprine 10 MG tablet 10 mg PO QHS RF: 0 furosemide 40 MG tablet 40 mg PO BID PRN (Reason: fluid overload) RF: 0 citalopram 40 MG tablet 40 mg PO DAILY RF: 0 potassium chloride 20 MEQ tablet 40 meq PO DAILY RF: 0 gabapentin 600 MG tablet 600 mg PO BID RF: 0 oxycodone-acetaminophen 1 TABLET tablet 2 tab PO QHS PRN PRN (Reason: Pain) RF: 0 valsartan 320 mg tablet 320 mg PO DAILY RF: 0 amitriptyline 50 mg tablet 50 mg PO QHS RF: 0 omeprazole 40 mg capsule,delayed release(DR/EC) 40 mg PO DAILY RF: 0 hydrochlorothiazide 12.5 mg capsule 12.5 mg PO BID RF: 0 montelukast 10 mg tablet 10 mg PO DAILY RF: 0 pramipexole 1.5 mg tablet 3 mg PO QHS RF: 0 doxycycline hyclate 100 mg tablet 100 mg PO BID Qty: 10 RF: 0 Changed meloxicam 7.5 MG tablet 7.5 mg PO BID PRN (Reason: KNEE PAIN) Qty: 0 RF: 0 Referrals / Follow Up: Ventura Lo DO [STAFF PHYSICIAN] - Within 1 Month (Admitted FOR Asthma exacerbation, needs PFT) Butch Maddox AREA DEVELOPMENT MANAGER, AREA DEVELOPMENT MANAGER-C [Primary Care Provider] - Disposition Disposition (needs filled in before D/C Order can be placed): Home, Self Care
--- NOTE | 2021-10-03 08:57 | PCM.DC.SUM ---
Providers Date of Admission: 10/01/21 Primary Care Physician: Butch Maddox, CANDI-C Reason For Visit: ASTHMA EXACERBATION Diagnosis Discharge Diagnosis (1) Asthma exacerbation: Status: Acute Code(s): J45.901 - Unspecified asthma with (acute) exacerbation (2) Obstructive sleep apnea: Status: Chronic Code(s): G47.33 - Obstructive sleep apnea (adult) (pediatric) (3) Morbid obesity: Status: Chronic Code(s): E66.01 - Morbid (severe) obesity due to excess calories Medications at Discharge Home Medications cyclobenzaprine 10 mg PO QHS 06/06/14 furosemide 40 mg PO BID PRN 06/13/17 citalopram 40 mg PO DAILY 08/25/18 potassium chloride 40 meq PO DAILY 11/01/18 gabapentin 600 mg PO BID 09/20/19 oxycodone-acetaminophen 2 tab PO QHS PRN PRN 09/20/19 albuterol sulfate 90 mcg/actuation aerosol inhaler 2 puff INHALATION Q6H PRN #8.5 g 05/11/21 amitriptyline 50 mg PO QHS 05/19/21 valsartan 320 mg PO DAILY 05/19/21 hydrochlorothiazide 12.5 mg PO BID 06/15/21 montelukast 10 mg PO DAILY 06/15/21 omeprazole 40 mg PO DAILY 06/15/21 pramipexole 3 mg PO QHS 06/15/21 benzonatate 100 mg PO Q4H PRN PRN #0 cap 10/03/21 buspirone 10 mg PO BID #30 tab 10/03/21 doxycycline hyclate 100 mg PO BID #10 tab 10/03/21 meloxicam 7.5 mg PO BID PRN #0 tab 10/03/21 prednisone 20 mg PO DAILY #20 tab 10/03/21 pseudoephedrine-guaifenesin [Mucus D] 2 tab PO BID #30 tab 10/03/21 Hospital Course Summary of Care Provided Hospital Course: This 61-year-old female admitted with shortness of breath cough, wheezing consistent with asthma exacerbation. She failed outpatient prednisone burst therapy 40 mg for 5 days. Asthma Exacerbation exact precipitating factor probably viral bronchitis/environmental change: COVID-19 antigen rapid negative. Influenza a and B antigen negative. Patient was managed with scheduled bronchodilator, IV Solu-Medrol, incentive spirometry, and Mucinex. On Singulair currently on room air. Tachypnea has improved. Advised Covid booster dose after asthma exacerbation improvement. Flu and pneumonia vaccine at time of discharge. Recommended pulmonary clinic visit within a month with PFT. Patient has BiPAP at home. Advised cleaning of home allergen and wearing mask. Patient also has SUTURED wound on the left side of ankle region, malleolar REGION. No purulent drainage or signs of inflammation. Follow-up PCP Obstructive sleep apnea on BiPAP: On BiPAP 12/8 at night. Morbid obesity: Weight loss counseling. HTN: Continue home meds CODE STATUS: DNR CC arrest no intubation. Lovenox for DVT prophylaxis Discharge medication reconciliation done. Discharge follow-up instructions completed. Discharge process discussed with the patient and all questions were answered to patient's satisfaction. Advised to call pulmonary clinic to make appointment with Dr. Lo. Prescription sent to patient's pharmacy. Total time spent, exact 35 minutes on discharge meds reconciliation, examination, coordination of care with nurses and ancillary staff, review of imaging and blood test and discussion with the patient on follow-up instructions Physical Exam Narrative General: Alert, Oriented x3, Cooperative, morbid obesity BMI 56.2 kg/m? HEENT: Atraumatic, PERRLA, EOMI, Normocephalic Oral: No Gingival or Mucosal Lesions/ Ulcerations Neck: Supple, No JVD, Negative Carotid Bruits Lungs: Air entry diminished bilaterally. Expiratory phase prolonged. Wheezing sound has improved. Hypoxia resolved. Cardiovascular: Regular rate, Regular Rhythm, Normal S1, Normal S2, No murmurs Abdomen: Bowel Sounds Present, Soft, Non Tender, Non-Distended : No renal angle tenderness. No suprapubic tenderness. Extremities: No edema, Capillary Refill Less than 3 Seconds Skin: No rashes, No breakdown Musculoskeletal: Right below-knee amputation. Uses prosthesis. No Tenderness to Palpation of Joints or Extremities Neurological: Cranial nerves II-XII grossly intact, DTR 2+/4 and Symmetrical, Neuro grossly intact Psych/Mental Status: Mild anxiety. Weight / BMI Weight Weight: 358 lb 14.601 oz Body Mass Index (BMI) 56.2 ABG / Lab / Microbiology Data Result Diagrams: 10/03/21 05:32 10/03/21 05:32 Laboratory: Laboratory Results - last 24 hr 10/03/21 05:32: WBC 15.6 H, RBC 4.30, Hgb 11.9 L, Hct 37.3, MCV 86.7, MCH 27.7, MCHC 31.9 L, RDW Std Deviation 52.2 H, RDW Coeff of Naga 16.5 H, Plt Count 289, MPV 10.4, Immature Gran % (Auto) 1.500 H, Neut % (Auto) 87.7 H, Lymph % (Auto) 5.9 L, [place] % (Auto) 4.8, Eos % (Auto) 0.0, Baso % (Auto) 0.1, Absolute Neuts (auto) 13.6 H, Absolute Lymphs (auto) 0.92, Nucleated RBC % 0 10/03/21 05:32: Sodium 138, Potassium 4.2, Chloride 106, Carbon Dioxide 26.0, Anion Gap 6, BUN 22 H, Creatinine 0.83, Estim Creat Clear Calc 68.34, Est GFR (MDRD) Af Amer 90, Est GFR (MDRD) Non-Af 74, BUN/Creatinine Ratio 26.6 H, Glucose 155 H, Calcium 9.2 Microbiology: Microbiology 10/02/21 11:36 Mucosa - Nasopharyngeal Influenza Types A,B Direct FA (MCKAYLA) - Final 09/30/21 20:10 Nasal Secretion SARS-CoV-2 Antigen (Rapid) - Final D/C Instructions Discharge Diet: Low fat / Low cholesterol, 1800 Calorie Control Diet and 2000 mg Sodium Diet Weight Bearing Status: Weight bearing as tolerated Call your doctor if you observe: Fever of 101 or Higher, Coldness, Increased Pain, Numbness or Tingling, Change in Color, Inability to urinate, Inability to have a bowel movement, Using more than 1 pad per hour, Shortness of breath, Dizziness, Fainting spells, Swelling in the ankles, Chest pain, Prolonged hiccupping, Increased palpitations (irregular heartbeat), Calf discomfort and Uncontrolled pain Meaningful Use Info Meaningful Use Diagnoses (Choose all that apply): None applicable Discharge Plan Admission Admit Date/Time: 10/01/21 00:04 Primary Reason for Your Visit: Asthma exacerbation Attending Provider: Laron Campoverde Primary Care Provider: Butch Maddox ARC WELDING MACHINE OPERATOR Discharge Orders/Prescriptions Prescriptions: New benzonatate 100 mg Capsule 100 mg PO Q4H PRN PRN (Reason: cough) Qty: 0 RF: 0 prednisone 20 mg tablet 20 mg PO DAILY Qty: 20 RF: 0 buspirone 10 mg tablet 10 mg PO BID Qty: 30 RF: 0 pseudoephedrine-guaifenesin [Mucus D] 60-600 mg tablet extended release 12 hr 2 tab PO BID Qty: 30 RF: 0 Continued albuterol sulfate 90 mcg/actuation HFA aerosol inhaler 2 puff inhalation Q6H PRN (Reason: shortness of breath or wheezing) Qty: 8.5 RF: 6 cyclobenzaprine 10 MG tablet 10 mg PO QHS RF: 0 furosemide 40 MG tablet 40 mg PO BID PRN (Reason: fluid overload) RF: 0 citalopram 40 MG tablet 40 mg PO DAILY RF: 0 potassium chloride 20 MEQ tablet 40 meq PO DAILY RF: 0 gabapentin 600 MG tablet 600 mg PO BID RF: 0 oxycodone-acetaminophen 1 TABLET tablet 2 tab PO QHS PRN PRN (Reason: Pain) RF: 0 valsartan 320 mg tablet 320 mg PO DAILY RF: 0 amitriptyline 50 mg tablet 50 mg PO QHS RF: 0 omeprazole 40 mg capsule,delayed release(DR/EC) 40 mg PO DAILY RF: 0 hydrochlorothiazide 12.5 mg capsule 12.5 mg PO BID RF: 0 montelukast 10 mg tablet 10 mg PO DAILY RF: 0 pramipexole 1.5 mg tablet 3 mg PO QHS RF: 0 doxycycline hyclate 100 mg tablet 100 mg PO BID Qty: 10 RF: 0 Changed meloxicam 7.5 MG tablet 7.5 mg PO BID PRN (Reason: KNEE PAIN) Qty: 0 RF: 0 Referrals / Follow Up: Ventura Lo DO [STAFF PHYSICIAN] - Within 1 Month (Admitted FOR Asthma exacerbation, needs PFT) Butch Maddox NP, ARC WELDING MACHINE OPERATOR-C [Primary Care Provider] - Disposition Disposition (needs filled in before D/C Order can be placed): Home, Self Care Charges/Coding Visit Charges Inpatient E&M: 99705 Disch Hosp
[2021-10-03 09:00] VITALS: BP 137/81; PULSE 78; RESP 20; TEMP 36.2; O2SAT 97
== END 2021-10-03 09:59 | disposition home or self-care (01) ==
LOC: ED 22:32 → MS2 10-01 03:11
PROVIDERS: Admitting Provider Hospitalist; Emergency Provider Emergency Medicine; PCP Nurse Practitioner Family; Visit Provider Internal Medicine
DX: J45.901 Unspecified asthma with (acute) exacerbation (principal); M06.9 Rheumatoid arthritis, unspecified; Z68.43 Body mass index [BMI] 50.0-59.9, adult; E66.01 Morbid (severe) obesity due to excess calories; I10 Essential (primary) hypertension; Z87.891 Personal history of nicotine dependence; G47.33 Obstructive sleep apnea (adult) (pediatric); Z79.899 Other long term (current) drug therapy; Z86.16 Personal history of COVID-19; K21.9 Gastro-esophageal reflux disease without esophagitis; M79.7 Fibromyalgia; Z23 Encounter for immunization; F32.A Depression, unspecified; F41.9 Anxiety disorder, unspecified; R06.02 Shortness of breath
CPT/HCPCS: 36415; 71045; 71275; 80048; 83880; 84484; 85025; 85379; 87426; 87804; 93005; 94640; 94667; 94668; 96372; 96374; 96375; 96376; 97802; 99218; 99251; 99285; G0008; Q9967; 90686; A4216; G0378; G0463

== ENCOUNTER 2021-11-07 16:37 | Outpatient (CLI) | payer MEDICARE, SELFPAY ==
[2021-11-07 17:14] LABS: Absolute Lymphocyte Count 1.68 X10^3/uL (0.83-4.51); Absolute Neutrophil Count 4.9 X10^3/uL (2.0-7.7); Basophil# 0.06 X10^3/uL; Basophil% 0.8 % (0-1); Eosinophils% 1.3 % (0-5); Erythrocyte Sedimentation Rate 37 mm/hr (0-30); Hematocrit 37.9 % (37-47); Hemoglobin 12.5 g/dL (12.0-15.0); Lymphocyte # 1.68 X10^3/ul (0.83-4.51); Lymphocyte % 21.6 % (19-41); Mean Corpuscular Hgb 28.8 pg (27.0-32.0); Mean Corpuscular Volume 87.3 fL (81-99); Mean Platelet Vol. 11.2 fl (6.2-12.0); Monocyte# 0.91 X10^3/uL; Monocyte% 11.7 % (0-10); NRBC Flagged by Analyzer 0 % (0-5); Neutrophil # 4.94 X10^3/uL (2.7-7.7); Neutrophil % 63.3 % (47-70); Platelet Count 314 K/mm3 (150-450); RBC Distribution Width CV 15.7 % (11.6-14.6); RBC Distribution Width SD 50.2 fl (35.1-43.9); Red Blood Count 4.34 M/mm3 (4.2-5.4); White Blood Count 7.8 K/mm3 (4.4-11.0)
[2021-11-07 17:18] LABS: ALB/GLOB Ratio 0.8 RATIO (0.9-2.4); AST(SGOT) 15 U/L (15-37); Alanine Aminotransfer ALT/SGPT 16 U/L (13-56); Albumin, Serum 3.1 g/dL (3.2-5.0); Alkaline Phosphatase 125 U/L (45-117); Anion Gap 4 (5-15); BUN 19 mg/dL (7-18); CRP 4.89 mg/L (0.0-3.0); Calcium,Total 8.7 mg/dL (8.5-10.1); Chloride 108 mmol/L (98-107); Creatinine, Serum 0.83 mg/dL (0.55-1.02); EST Glomerular Filtration Rate 74 mL/min (>60); Est Glom Filt Rate - Afr Amer 90 mL/min (>60); Globulin 3.7 g/dL (2.2-4.2); Glucose 102 mg/dL (74-106); Potassium 4.6 mmol/L (3.5-5.1); Protein, Total 6.8 g/dL (6.4-8.2); Sodium Level 141 mmol/L (136-145)
== END 2021-11-07 23:59 | disposition home or self-care (01) ==
LOC: LABSPEC 16:38
PROVIDERS: PCP Nurse Practitioner Family; Referring Provider Internal Medicine Infectious Disease; Visit Provider Internal Medicine Infectious Disease
DX: T81.31XD Disruption of external operation (surgical) wound, not elsewhere classified, subsequent encounter (principal); T81.41XD Infection following a procedure, superficial incisional surgical site, subsequent encounter; B95.7 Other staphylococcus as the cause of diseases classified elsewhere
CPT/HCPCS: 80053; 85025; 85652; 86140

== ENCOUNTER 2021-11-14 14:57 | Outpatient (CLI) | payer MEDICARE, SELFPAY ==
[2021-11-14 15:41] LABS: Absolute Lymphocyte Count 1.46 X10^3/uL (0.83-4.51); Absolute Neutrophil Count 4.2 X10^3/uL (2.0-7.7); Basophil# 0.04 X10^3/uL; Basophil% 0.6 % (0-1); Eosinophil# 0.13 X10^3/uL; Eosinophils% 1.9 % (0-5); Hematocrit 37.4 % (37-47); Lymphocyte # 1.46 X10^3/ul (0.83-4.51); Lymphocyte % 21.9 % (19-41); Mean Corp Hgb Conc 32.1 g/dL (32-36); Mean Corpuscular Hgb 27.9 pg (27.0-32.0); Mean Platelet Vol. 11.5 fl (6.2-12.0); Monocyte# 0.76 X10^3/uL; Monocyte% 11.4 % (0-10); NRBC Flagged by Analyzer 0 % (0-5); Neutrophil # 4.24 X10^3/uL (2.7-7.7); Neutrophil % 63.6 % (47-70); Platelet Count 256 K/mm3 (150-450); RBC Distribution Width CV 15.8 % (11.6-14.6); RBC Distribution Width SD 49.8 fl (35.1-43.9); White Blood Count 6.7 K/mm3 (4.4-11.0)
[2021-11-14 15:47] LABS: ALB/GLOB Ratio 0.9 RATIO (0.9-2.4); AST(SGOT) 19 U/L (15-37); Alanine Aminotransfer ALT/SGPT 17 U/L (13-56); Albumin, Serum 3.1 g/dL (3.2-5.0); Alkaline Phosphatase 122 U/L (45-117); Anion Gap 3 (5-15); BUN 15 mg/dL (7-18); BUN/Creat Ratio 20.9 RATIO (10-20); CRP 7.77 mg/L (0.0-3.0); Calcium,Total 8.9 mg/dL (8.5-10.1); Chloride 109 mmol/L (98-107); Creatinine, Serum 0.72 mg/dL (0.55-1.02); EST Glomerular Filtration Rate 88 mL/min (>60); Est Glom Filt Rate - Afr Amer 106 mL/min (>60); Globulin 3.6 g/dL (2.2-4.2); Glucose 105 mg/dL (74-106); Protein, Total 6.7 g/dL (6.4-8.2); Sodium Level 141 mmol/L (136-145)
[2021-11-14 16:02] LABS: Erythrocyte Sedimentation Rate 30 mm/hr (0-30)
== END 2021-11-14 23:59 | disposition home or self-care (01) ==
LOC: LABSPEC 14:59
PROVIDERS: PCP Nurse Practitioner Family; Visit Provider Internal Medicine Infectious Disease
DX: T81.31XD Disruption of external operation (surgical) wound, not elsewhere classified, subsequent encounter (principal); B95.7 Other staphylococcus as the cause of diseases classified elsewhere; T81.41XD Infection following a procedure, superficial incisional surgical site, subsequent encounter
CPT/HCPCS: 80053; 85025; 85652; 86140

== ENCOUNTER 2022-01-21 13:53 | Emergency (ER) | payer MEDICARE, SELFPAY ==
[2022-01-21] VITALS (7 sets, daily range): BP systolic 136–166; BP diastolic 77–125; PULSE 88–116; RESP 20–30; TEMP 37.2–39.7; O2SAT 89–96; BMI 56.5
--- NOTE | 2022-01-21 14:06 | EKG12_ITS ---
Test Reason : SEPSIS Blood Pressure : / mmHG Vent. Rate : 115 BPM Atrial Rate : 115 BPM P-R Int : 144 ms QRS Dur : 088 ms QT Int : 336 ms P-R-T Axes : -18 -32 120 degrees QTc Int : 464 ms Sinus tachycardia Left axis deviation Left ventricular hypertrophy with repolarization abnormality Abnormal ECG Confirmed by ELDER BORDEN, LOUIS ([id number]), photograph editor LUZ MARINA GREY ([id number]) on 01/24/2022 9:21:43 AM Referred By: BB Confirmed By:LOUIS FRIEDMAN MD
--- NOTE | 2022-01-21 14:11 | EX.ED.DYSGE1 ---
HPI History of Present Illness Chief Complaint: Alt LOC Informant: patient, family and EMS Onset/Context/Timing Onset: Today Context: - (Unknown time of onset) Timing: Continuous Quality: Confused febrile Location: Generally Current Severity: Severe Maximum Severity: Severe Worsened by: Nothing Relieved by: Nothing Associated Symptoms Associated Symptoms: Redness left lower leg Narrative Narrative: Patient presents altered with a fever, son has been changing dressing on her left distal leg wound after a skin graft was performed about a week ago, she appears to have cellulitis in her left lower leg and he states it was not red yesterday. When we unwrapped the dressing, the gauze is covered in purulent material, he states that is the first dressing he has seen that has looked this way. [facility] Medical History Anxiety Anxiety and depression Asthma Asthma exacerbation Below knee amputation Benign essential HTN BiPAP (biphasic positive airway pressure) dependence Bronchospasm Depression Failure of outpatient treatment Family history of diabetes mellitus (DM) Fibromyalgia Former smoker GERD (gastroesophageal reflux disease) Hypertension Morbid obesity Obstructive sleep apnea Reflex sympathetic dystrophy Restless leg syndrome Rheumatoid arthritis Sleep apnea Home Medications cyclobenzaprine 10 mg PO QHS 06/06/14 [History Last Taken 06/14/21] furosemide 40 mg PO BID PRN 06/13/17 [History Last Taken 06/14/21] citalopram 40 mg PO DAILY 08/25/18 [History Last Taken 06/15/21] potassium chloride 40 meq PO DAILY 11/01/18 [History Last Taken 06/15/21] gabapentin 600 mg PO BID 09/20/19 [History Last Taken 06/15/21] oxycodone-acetaminophen 2 tab PO QHS PRN PRN 09/20/19 [History Last Taken 1 Week Ago ~06/08/21] albuterol sulfate 90 mcg/actuation aerosol inhaler 2 puff INHALATION Q6H PRN #8.5 g 05/11/21 [Rx Last Taken 06/15/21] amitriptyline 50 mg PO QHS 05/19/21 [History Last Taken 06/14/21] valsartan 320 mg PO DAILY 05/19/21 [History Last Taken 06/15/21] hydrochlorothiazide 12.5 mg PO BID 06/15/21 [History Last Taken 06/15/21] montelukast 10 mg PO DAILY 06/15/21 [History Last Taken 06/15/21] omeprazole 40 mg PO DAILY 06/15/21 [History Last Taken 06/15/21] pramipexole 3 mg PO QHS 06/15/21 [History Last Taken 06/14/21] benzonatate 100 mg PO Q4H PRN PRN #0 cap 10/03/21 [Rx Last Taken Unknown] buspirone 10 mg PO BID #30 tab 10/03/21 [Rx Last Taken Unknown] doxycycline hyclate 100 mg PO BID #10 tab 10/03/21 [Rx Last Taken Unknown] meloxicam 7.5 mg PO BID PRN #0 tab 10/03/21 [Rx Last Taken 06/15/21] prednisone 20 mg PO DAILY #20 tab 10/03/21 [Rx Last Taken Unknown] pseudoephedrine-guaifenesin [Mucus D] 2 tab PO BID #30 tab 10/03/21 [Rx Last Taken Unknown] Allergy/AdvReac Type Severity Reaction Status Date / Time amlodipine AdvReac Swelling Verified 09/30/21 19:13 Family History Mother Hypertension Cancer Pancreatic Diabetes Father Cancer pancreatic Brother Diabetes Grandfather Diabetes Surgical History Chronic knee pain after total replacement of left knee joint H/O foot surgery History of hysterectomy History of tonsillectomy Hx of breast reduction, elective Social History Smoking Status: Former smoker EXAM Physical Exam Const Vital Signs: 01/21/22 13:54 01/21/22 14:06 01/21/22 14:19 Temperature 103.4 F H 103.4 F H Temperature Source Axillary Oral Pulse Rate 116 H Respiratory Rate 30 H Respiratory Pattern Normal Blood Pressure 150/93 H Blood Pressure Mean 112 Pulse Ox 89 94 Oxygen Delivery Method Room Air Nasal Cannula Oxygen Flow Rate (L/min) 3 01/21/22 14:41 01/21/22 15:00 01/21/22 15:19 Temperature 103.5 F H 102.8 F H 103.1 F H Temperature Source Oral Axillary Oral Pulse Rate 92 110 H Respiratory Rate 25 H 24 H Respiratory Pattern Blood Pressure 136/82 H 166/100 H Blood Pressure Mean 100 122 Pulse Ox 94 95 Oxygen Delivery Method Nasal Cannula Nasal Cannula Oxygen Flow Rate (L/min) 3 3 01/21/22 16:00 Temperature 99.6 F H Temperature Source Oral Pulse Rate 97 Respiratory Rate 20 H Respiratory Pattern Blood Pressure 142/125 H Blood Pressure Mean 130 Pulse Ox 95 Oxygen Delivery Method Nasal Cannula Oxygen Flow Rate (L/min) 3 Positive well nourished and well developed Constitutional Narrative: Patient is confused and moaning and discomfort, no distress. Is awake but somnolent. General Appearance ED: well developed Nutritional Appearance: morbidly obese HEENT Reports moist mucous membranes normocephalic and atraumatic Eyes PERRL and EOMs intact bilaterally Neck full ROM and supple Resp normal respiratory effort and clear to auscultation bilaterally Cardio regular rate, regular rhythm and no murmurs Rate: tachycardic GI non-tender and non-distended Auscultation: normoactive bowel sounds Palpation: soft Back/Spine no CVA tenderness General Back: other FROM Extremity normal to inspection Extremity Narrative: Cellulitic tender left lower leg, there is pen marking just above the left knee, and the redness is about 3 cm distal to the pen marking and nothing above it. There is a wrapping around the wound at the lateral aspect of the foot/ankle, after unwrapping it, the gauze dressing is covered in pus, there is no or little significant expressible discharge after wiping the area with chlorhexidine, but muscle is exposed. The entire wound is approximately 8 cm in diameter. General Extremety ED: Yes tenderness; Negative for edema or pulses abnormal General Extremity: Negative for edema or pulses abnormal Neuro CN's II-XII intact bilaterally and no sensory deficits noted Sensorium / Orientation: awake, alert, orientation impaired and confused Motor Exam: strength 5/5 throughout Skin Skin Narrative: Wound left lower extremity with cellulitis emanating from it all the way up to the knee, see above. No subcutaneous emphysema. Excellent range of motion of the ankle and the knee. No abscess. MDM MDM MDM Narrative Medical decision making narrative: Patient appears to have an infected wound in her left ankle along with related cellulitis going all the way up to the knee and this is likely the cause of her very high fevers, which subsequently is probably the cause of her altered mental status although we did a CT of the head anyway, it was negative. She is a significant leukocytosis. The pen markings just proximal to the border of the redness was drawn by EMS prior to bringing her here, it already has improved some and did not worsen on reevaluation, she does not have any subcutaneous gas on x-ray 2 views of the left tib-fib on my interpretation, which also does not show any involvement of the bone or foreign body, and/or clinically, so I think this is less likely to be necrotizing fasciitis but I did cover her with clindamycin in addition to Zosyn empirically. CT of the head was obtained and it is negative. The rest of the work-up is really unremarkable except for an elevated CPK but not high enough to qualify for rhabdomyolysis. We got her temperature down to 99.6 with medications but she is still confused/altered and restless. She is mildly hypoxic at 89% for unclear reason, her chest x-ray 1 view on my interpretation shows no acute infiltrate or effusion radiology in agreement. She is on 3 L nasal cannula with sats 94-96%. Her lactate was within normal limits, potassium slightly low but she has been restless and tachypneic and this could be an acute respiratory alkalosis causing shift and pseudohyperkalemia. Discussed with family, Dr. Ward had just done this graft on her left lower leg, unsure if it was a flap or just a skin graft, but as I look at the donor site on her left thigh which shows no signs of infection it appears to be a skin graft and I do not think the graft is there anymore. She did have a wound VAC after surgery, family states it was taken off on Sunday, today is Sunday. They prefer to go back to [facility] since she had the surgery there which certainly I understand. Discussed with high school home economics teacher Dr. Crooks at [facility], he request that the patient be transferred to the ED for further triaging and evaluation, and then they will determine from there if the patient needs to go to the ICU or not. Lab Data Attestation: I reviewed the patient's lab results. Labs: Laboratory Results - last 24 hr 01/21/22 01/21/22 01/21/22 14:07 14:07 14:07 WBC 24.5 H RBC 4.86 Hgb 13.0 Hct 40.4 MCV 83.1 MCH 26.7 L MCHC 32.2 RDW Std Deviation 43.5 RDW Coeff of Naga 14.4 Plt Count 274 MPV 10.7 Immature Gran % (Auto) 0.900 Neut % (Auto) 91.4 H Lymph % (Auto) 3.0 L [place] % (Auto) 4.1 Eos % (Auto) 0.3 Baso % (Auto) 0.3 Absolute Neuts (auto) 22.4 H Absolute Lymphs (auto) 0.74 L Nucleated RBC % 0 Polychromasia 1+ Anisocytosis 1+ PT 14.9 INR 1.2 APTT 28.4 Sodium 135 L Potassium 3.2 L Chloride 103 Carbon Dioxide 24.0 Anion Gap 8 BUN 18 Creatinine 1.18 H Estim Creat Clear Calc 46.28 Est GFR (MDRD) Af Amer 60 Est GFR (MDRD) Non-Af 49 L BUN/Creatinine Ratio 15.3 Glucose 141 H Lactic Acid Calcium 9.0 Total Bilirubin 0.50 AST 21 ALT 18 Alkaline Phosphatase 112 Total Creatine Kinase 464 H Troponin I High Sens 33 Total Protein 8.0 Albumin 3.1 L Globulin 4.9 H Albumin/Globulin Ratio 0.6 L Urine Color Urine Clarity Urine pH Ur Specific [place] Urine Protein Urine Glucose (UA) Urine Ketones Urine Occult Blood Urine Nitrite Urine Bilirubin Urine Urobilinogen Ur Leukocyte Esterase Urine RBC Urine WBC Ur Squamous Epith Cells Amorphous Sediment Urine Bacteria Urine Mucus 01/21/22 01/21/22 14:07 14:35 WBC RBC Hgb Hct MCV MCH MCHC RDW Std Deviation RDW Coeff of Naga Plt Count MPV Immature Gran % (Auto) Neut % (Auto) Lymph % (Auto) [place] % (Auto) Eos % (Auto) Baso % (Auto) Absolute Neuts (auto) Absolute Lymphs (auto) Nucleated RBC % Polychromasia Anisocytosis PT INR APTT Sodium Potassium Chloride Carbon Dioxide Anion Gap BUN Creatinine Estim Creat Clear Calc Est GFR (MDRD) Af Amer Est GFR (MDRD) Non-Af BUN/Creatinine Ratio Glucose Lactic Acid 1.5 Calcium Total Bilirubin AST ALT Alkaline Phosphatase Total Creatine Kinase Troponin I High Sens Total Protein Albumin Globulin Albumin/Globulin Ratio Urine Color Yellow Urine Clarity Sl. Cloudy Urine pH 5.0 Ur Specific [place] 1.025 Urine Protein 100 H Urine Glucose (UA) Normal Urine Ketones 5 H Urine Occult Blood 150 H Urine Nitrite Negative Urine Bilirubin Negative Urine Urobilinogen Normal Ur Leukocyte Esterase 25 H Urine RBC 5-10 SEEN Urine WBC 0-5 SEEN Ur Squamous Epith Cells 5-10 SEEN Amorphous Sediment 2+ Urine Bacteria 1+ Urine Mucus 0 SEEN Radiography Chest X-Ray - ED: 1 View, Read by ED Physician, No Acute Disease and Chronic Changes Diagnostic Testing: Clinical Impression(s) from Imaging Studies Chest X-Ray 01/21/22 15:00 IMPRESSION: 1. No airspace consolidation or pleural effusion. Electronically Signed: Dar Valdez MD (Brooks) at 15:59 EDT , Tibia/Fibula X-Ray 01/21/22 15:00 IMPRESSION: No acute findings. Electronically Signed: Sam Perez MD at 16:08 EDT , Brain CT 01/21/22 15:30 IMPRESSION: No acute intracranial hemorrhage or mass effect. Electronically Signed: Dar Valdez MD (Brooks) at 16:06 EDT , Discharge Plan Triage Chief Complaint: Alt LOC ED Provider: August Hobson Dx/Rx/DC Orders Clinical Impression: Cellulitis of left lower extremity, Infection associated with surgery, Sepsis, Delirium due to another medical condition Prescriptions: No Action albuterol sulfate 90 mcg/actuation HFA aerosol inhaler 2 puff inhalation Q6H PRN (Reason: shortness of breath or wheezing) Qty: 8.5 RF: 6 cyclobenzaprine 10 MG tablet 10 mg PO QHS RF: 0 furosemide 40 MG tablet 40 mg PO BID PRN (Reason: fluid overload) RF: 0 citalopram 40 MG tablet 40 mg PO DAILY RF: 0 potassium chloride 20 MEQ tablet 40 meq PO DAILY RF: 0 gabapentin 600 MG tablet 600 mg PO BID RF: 0 oxycodone-acetaminophen 1 TABLET tablet 2 tab PO QHS PRN PRN (Reason: Pain) RF: 0 valsartan 320 mg tablet 320 mg PO DAILY RF: 0 amitriptyline 50 mg tablet 50 mg PO QHS RF: 0 omeprazole 40 mg capsule,delayed release(DR/EC) 40 mg PO DAILY RF: 0 hydrochlorothiazide 12.5 mg capsule 12.5 mg PO BID RF: 0 montelukast 10 mg tablet 10 mg PO DAILY RF: 0 pramipexole 1.5 mg tablet 3 mg PO QHS RF: 0 benzonatate 100 mg Capsule 100 mg PO Q4H PRN PRN (Reason: cough) Qty: 0 RF: 0 prednisone 20 mg tablet 20 mg PO DAILY Qty: 20 RF: 0 buspirone 10 mg tablet 10 mg PO BID Qty: 30 RF: 0 meloxicam 7.5 MG tablet 7.5 mg PO BID PRN (Reason: KNEE PAIN) Qty: 0 RF: 0 doxycycline hyclate 100 mg tablet 100 mg PO BID Qty: 10 RF: 0 pseudoephedrine-guaifenesin [Mucus D] 60-600 mg tablet extended release 12 hr 2 tab PO BID Qty: 30 RF: 0 Primary Care Provider: Butch Maddox NP Referrals: Butch Maddox NP, LEATHER STAMPER-C [Primary Care Provider] - Disposition Disposition: Acute Care Hospital
[2022-01-21] MEDS: 0.9% Normal Saline 1,000 ML 999 ML IV (14:15)
[2022-01-21 14:26] LABS: Absolute Lymphocyte Count 0.74 X10^3/uL (0.83-4.51); Absolute Neutrophil Count 22.4 X10^3/uL (2.0-7.7); Basophil# 0.07 X10^3/uL; Basophil% 0.3 % (0-1); Eosinophil# 0.07 X10^3/uL; Eosinophils% 0.3 % (0-5); Hematocrit 40.4 % (37-47); Lymphocyte # 0.74 X10^3/ul (0.83-4.51); Mean Corp Hgb Conc 32.2 g/dL (32-36); Mean Corpuscular Hgb 26.7 pg (27.0-32.0); Mean Corpuscular Volume 83.1 fL (81-99); Mean Platelet Vol. 10.7 fl (6.2-12.0); Monocyte% 4.1 % (0-10); NRBC Flagged by Analyzer 0 % (0-5); Neutrophil # 22.37 X10^3/uL (2.7-7.7); Neutrophil % 91.4 % (47-70); POSITIVE DIFFERENTIAL YES; Platelet Count 274 K/mm3 (150-450); RBC Distribution Width CV 14.4 % (11.6-14.6); RBC Distribution Width SD 43.5 fl (35.1-43.9); Red Blood Count 4.86 M/mm3 (4.2-5.4); White Blood Count 24.5 K/mm3 (4.4-11.0)
[2022-01-21 14:29] LABS: Differential Indicated SCAN CRITERIA MET
[2022-01-21 14:38] LABS: International Normalized Ratio 1.2; Prothrombin Time (Protime)PT. 14.9 SECONDS (11.7-14.9)
[2022-01-21 14:39] LABS: Partial Thromboplast Time 28.4 Seconds (24.1-36.2)
[2022-01-21 14:40] LABS: Albumin, Serum 3.1 g/dL (3.2-5.0); BUN 18 mg/dL (7-18); BUN/Creat Ratio 15.3 RATIO (10-20); Creatinine, Serum 1.18 mg/dL (0.55-1.02); EST Glomerular Filtration Rate 49 mL/min (>60); Est Glom Filt Rate - Afr Amer 60 mL/min (>60); Estimated Creatinine Clearance 46.28 ml/min; Glucose 141 mg/dL (74-106)
[2022-01-21 14:41] LABS: Mucous, Urine 0 SEEN /hpf (<or=2+)
[2022-01-21 14:41] LABS: ALB/GLOB Ratio 0.6 RATIO (0.9-2.4); AST(SGOT) 21 U/L (15-37); Alanine Aminotransfer ALT/SGPT 18 U/L (13-56); Alkaline Phosphatase 112 U/L (45-117); Anion Gap 8 (5-15); CPK Total, Creatine Kinase 464 U/L (26-192); Chloride 103 mmol/L (98-107); Globulin 4.9 g/dL (2.2-4.2); Potassium 3.2 mmol/L (3.5-5.1); Sodium Level 135 mmol/L (136-145); Troponin-I HS 33 pg/mL (3.0-54.0)
[2022-01-21] MEDS: Acetaminophen 500 MG Tablet 1000 MG PO (14:43)
[2022-01-21] MEDS: Clindamycin 900 MG/50 ML BAG 75 MG IV (14:45)
[2022-01-21 14:58] LABS: Color, Urine Yellow (Yellow); Glucose, Dipstick Normal (Normal); Ketone-Dipstick 5 mg/dl (Negative); Leukocyte Esterase-Dipstick 25 /ul (Negative); Nitrite-Dipstick Negative (Negative); Occult Blood-Urine 150 /ul (Negative); Protein-Dipstick 100 mg/dl (Negative); Specific Gravity, Urine 1.025 (1.002-1.030); Urine Bilirubin Dipstick Negative (Negative); Urine Clarity Sl. Cloudy (Clear); Urine Urobilinogen Normal (Normal)
--- NOTE | 2022-01-21 15:00 | RAD_ITS ---
STUDY: X-RAY CHEST REASON FOR EXAM: Female, 61 years old. Altered mental status. Pt arrives with fever, redness and swelling to left lower leg. TECHNIQUE: AP COMPARISON: None. FINDINGS: Neurostimulator leads project over the thoracic spine. EKG leads project over the chest. Lungs are underexpanded. No airspace consolidation. There is no demonstrated pleural abnormality. There is mild cardiac enlargement. Normal mediastinum and jimmy. Normal visualized pulmonary arteries. There is atherosclerotic tortuosity of the aortic arch and descending thoracic aorta. There is demineralization of the osseous structures. Normal visualized ribs, clavicles, and shoulders. There is no demonstrated abnormality of the visualized soft tissue structures of the upper abdomen. RAD/Chest 1 View (Portable) IMPRESSION: 1. No airspace consolidation or pleural effusion. Electronically Signed: Dar Valdez MD (Brooks) at 15:59 EDT ,
--- NOTE | 2022-01-21 15:00 | RAD_ITS ---
INDICATION: infection EXAMINATION/TECHNIQUE: X-RAY - LEFT XR Tibia/Fibula 2 Views 2 VIEWS COMPARISON: Left knee series 06/24/2020 FINDINGS: SOFT TISSUES: No soft tissue swelling or gas. No radiopaque foreign body. BONES/JOINTS: No acute fracture or subluxation.. Normal alignment. Stable appearance of the included knee prosthesis. No sclerotic or destructive changes observed. RAD/Tibia & Fibula 2 Views IMPRESSION: No acute findings. Electronically Signed: Sam Perez MD at 16:08 EDT ,
[2022-01-21 15:02] LABS: Lactic Acid 1.5 mmol/L (0.4-1.9)
[2022-01-21 15:04] LABS: Anisocytosis 1+; Polychromasia 1+
[2022-01-21 15:09] LABS: Red Blood Cells-Urine 5-10 SEEN /hpf (0-5); Squamous Epithelial Cells - UA 5-10 SEEN /hpf (5-10); White Blood Cells 0-5 SEEN /hpf (0-5)
[2022-01-21 15:10] LABS: Amorphous Sediment 2+; Bacteria 1+ /hpf (None Seen)
--- NOTE | 2022-01-21 15:29 | ED.RN ---
restless. c/o headache. moaning. dr banda updated. new orders recieved.
--- NOTE | 2022-01-21 15:30 | CT_ITS ---
STUDY: CT BRAIN WITHOUT CONTRAST REASON FOR EXAM: Female, 61 years old. altered mental status RADIATION DOSAGE (If Supplied By Facility): CTDIvol = ( 47.06 ) mGy, DLP = ( 925.62 ) mGycm TECHNIQUE: Transaxial CT imaging of the brain was performed without administration of intravenous contrast material. Individualized dose optimization techniques were used for this CT. COMPARISON: 03/16/2018 FINDINGS: Normal soft tissue structures. Normal calvarium. Normal size ventricles and extra-axial spaces for the patient''s age. Normal white matter tracts of the cerebral hemispheres. Normal basal ganglia and thalami. Normal brainstem. Normal cerebellum. There is no intracranial hemorrhage. There are no findings of an acute ischemic infarction. Normal visualized paranasal sinuses. CT/Brain/Head without Contrast IMPRESSION: No acute intracranial hemorrhage or mass effect. Electronically Signed: Dar Valdez MD (Brooks) at 16:06 EDT ,
[2022-01-21] MEDS: Ketorolac 15 MG/ML Vial IV (15:36)
== END 2022-01-21 18:26 | disposition short-term general hospital (02) ==
PROVIDERS: Emergency Provider Emergency Medicine; PCP Nurse Practitioner Family; Visit Provider Emergency Medicine
DX: A41.9 Sepsis, unspecified organism (principal); M06.9 Rheumatoid arthritis, unspecified; E66.01 Morbid (severe) obesity due to excess calories; S91.002A Unspecified open wound, left ankle, initial encounter; R09.02 Hypoxemia; L03.116 Cellulitis of left lower limb; T81.40XA Infection following a procedure, unspecified, initial encounter; I10 Essential (primary) hypertension; Z87.891 Personal history of nicotine dependence; M79.7 Fibromyalgia; G47.33 Obstructive sleep apnea (adult) (pediatric); K21.9 Gastro-esophageal reflux disease without esophagitis; Z79.1 Long term (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 non-steroidal anti-inflammatories (NSAID); Z79.52 Long term (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 systemic steroids; Z79.899 Other long term (current) drug therapy; F05 Delirium due to known physiological condition
CPT/HCPCS: 70450; 71045; 73590; 80053; 81001; 82550; 83605; 84484; 85025; 85610; 85730; 87040; 87070; 87077; 87086; 87088; 87186; 87205; 87428; 93005; 96365; 96367; 96375; 99285; J7050; A4216

== ENCOUNTER 2022-03-07 16:33 | Observation (INO) | payer MEDICARE, SELFPAY ==
[2022-03-07] VITALS (11 sets, daily range): BP systolic 98–131; BP diastolic 64–93; PULSE 77–120; RESP 16–20; TEMP 36.6–36.8; O2SAT 93–96; BMI 52.4; BMI 50.8
--- NOTE | 2022-03-07 16:50 | EKG12_ITS ---
Test Reason : NEURO Blood Pressure : / mmHG Vent. Rate : 094 BPM Atrial Rate : 094 BPM P-R Int : 166 ms QRS Dur : 088 ms QT Int : 380 ms P-R-T Axes : 040 -24 058 degrees QTc Int : 475 ms Normal sinus rhythm with sinus arrhythmia Normal ECG Confirmed by RASHEL BORDEN, STEWART ([id number]), marketing editor LUZ MARINA GREY ([id number]) on 03/08/2022 9:03:29 AM Referred By: ENRIQUE Confirmed By:STEWART KISER MD
--- NOTE | 2022-03-07 16:50 | CT_ITS ---
We are attempting to reach an attending provider to discuss findings. An addendum with communication details will be sent when the communication is complete. EXAM: CT HEAD WITHOUT INTRAVENOUS CONTRAST CLINICAL INDICATION: Neuro deficit, acute, stroke suspected TECHNIQUE: Multiple axial images were obtained of the head without intravenous contrast. This CT exam was performed using one or more of the following dose reduction techniques: automated exposure control, adjustment of the mA and/or kV according to patient size, and/or use of iterative reconstruction technique. This report was created using [employer] report [employer] technology. COMPARISON: 01.21.22 FINDINGS: BRAIN AND EXTRA-AXIAL SPACES: Unremarkable. No intra- or extra-axial hemorrhage. No evidence of acute infarct. No intracranial mass or mass effect. There is preservation of the paul/white matter interface. Posterior fossa structures are unremarkable. Ventricles are appropriate for age. No hydrocephalus. Basal cisterns are patent. BONES/JOINTS: Unremarkable. No discrete lytic or blastic abnormalities. SINUSES: Unremarkable as visualized. Clear. MASTOID AIR CELLS: Unremarkable. Clear. ORBITS: Visualized globes, extraocular muscles, optic nerves and retrobulbar fat appear unremarkable. Aspect 10. CT/STROKE Brain/Head without Cont IMPRESSION: Negative head/brain CT without intravenous contrast. Electronically Signed: Amaury Hooks MD at 17:08 EDT ,
--- NOTE | 2022-03-07 16:51 | CT_ITS ---
We are attempting to reach an attending provider to discuss findings. An addendum with communication details will be sent when the communication is complete. EXAM: CT ANGIOGRAPHY HEAD AND NECK WITH INTRAVENOUS CONTRAST CLINICAL INDICATION: Neuro deficit, acute, stroke suspected TECHNIQUE: [place]/head and neck CT angiography protocol performed with intravenous contrast. This CT exam was performed using one or more of the following dose reduction techniques: automated exposure control, adjustment of the mA and/or kV according to patient size, and/or use of iterative reconstruction technique. This report was created using [employer] report generation technology. MIP reconstructed images were created and reviewed. CONTRAST: IV 100mL [id number] RADIATION DOSE: CTDIvol = 25.19 mGy, DLP = 762.27 mGy-cm COMPARISON: None. FINDINGS: HEAD: RIGHT ANTERIOR CEREBRAL ARTERY: Unremarkable. No significant stenosis at the visualized segments. Anterior communicating artery is present. No aneurysm. RIGHT MIDDLE CEREBRAL ARTERY: Unremarkable. No significant stenosis at the visualized segments. No aneurysm. RIGHT POSTERIOR CEREBRAL ARTERY: Unremarkable. No occlusion or significant stenosis. No aneurysm. RIGHT INTRACRANIAL INTERNAL CAROTID ARTERY: Unremarkable. No significant stenosis. No dissection or occlusion. RIGHT INTRACRANIAL VERTEBRAL ARTERY: Unremarkable. No significant stenosis. No dissection or occlusion. LEFT ANTERIOR CEREBRAL ARTERY: Unremarkable. No significant stenosis at the visualized segments. No aneurysm. LEFT MIDDLE CEREBRAL ARTERY: Unremarkable. No significant stenosis at the visualized segments. No aneurysm. LEFT POSTERIOR CEREBRAL ARTERY: Unremarkable. No occlusion or significant stenosis. No aneurysm. LEFT INTRACRANIAL INTERNAL CAROTID ARTERY: Unremarkable. No significant stenosis. No dissection or occlusion. LEFT INTRACRANIAL VERTEBRAL ARTERY: Unremarkable. No significant stenosis. No dissection or occlusion. BASILAR ARTERY: Unremarkable. No significant stenosis. No aneurysm. OTHER VASCULATURE: There are no acute findings of the right and left internal carotid artery. ALL ABOVE CRITERIA BY NASCET. No vascular malformation. NECK: RIGHT COMMON CAROTID ARTERY: Unremarkable. No significant stenosis. No dissection or occlusion. RIGHT EXTRACRANIAL INTERNAL CAROTID ARTERY: Unremarkable. No significant stenosis. No dissection or occlusion. RIGHT EXTERNAL CAROTID ARTERY: Unremarkable. No occlusion. RIGHT EXTRACRANIAL VERTEBRAL ARTERY: Unremarkable. No significant stenosis. No dissection or occlusion. LEFT COMMON CAROTID ARTERY: Unremarkable. No significant stenosis. No dissection or occlusion. LEFT EXTRACRANIAL INTERNAL CAROTID ARTERY: Unremarkable. No significant stenosis. No dissection or occlusion. LEFT EXTERNAL CAROTID ARTERY: Unremarkable. No occlusion. LEFT EXTRACRANIAL VERTEBRAL ARTERY: Unremarkable. No significant stenosis. No dissection or occlusion. GREAT VESSELS OF AORTIC ARCH: Unremarkable as visualized. Normal anatomy, patent. LUNG APICES: Unremarkable as visualized. HEAD and NECK: BONES/JOINTS: Unremarkable. No discrete lytic or blastic abnormalities. SOFT TISSUES: Unremarkable. OTHER FINDINGS: There are no acute findings of the [place] without a demonstrated aneurysm or hemodynamically significant stenosis. ALL ABOVE CRITERIA BY NASCET. CAROTID STENOSIS REFERENCE USING NASCET CRITERIA: % ICA stenosis = (1 - narrowest ICA diameter/diameter of distal cervical ICA) x 100. Mild - <50% stenosis. Moderate - 50-69% stenosis. Severe - 70-94% stenosis. Near occlusion - 95-99% stenosis. Occluded - 100% stenosis. CT/STROKE CTA Head AND Neck W/Con IMPRESSION: 1. There are no acute findings of the [place] without a demonstrated aneurysm or hemodynamically significant stenosis. ALL ABOVE CRITERIA BY NASCET. 2. There are no acute findings of the right and left internal carotid artery. ALL ABOVE CRITERIA BY NASCET. Critical finding called and case discussed. Electronically Signed: Amaury Hooks MD at 17:21 EDT ,
--- NOTE | 2022-03-07 16:53 | EDS_ITS ---
HPI History of Present Illness Chief Complaint: Neuro S/Sx Detail of Chief Complaint: Generalized weakness and difficulty with speech Informant: patient Narrative Narrative: Patient presents to the emergency department overall not feeling we ll. Patient states that she took her medications about 9:30 AM. Patient noticed that her speech was off and she cannot find the words to say. Patient also thinks maybe her right side is a little weaker than the left. Patient has had prior right below the knee amputation. She denies recent illness but she had a fever maybe 3 weeks ago. Patient denies headache. She denies cough. Patient has history of hypertension, GERD, sleep apnea, rheumatoid arthritis, and anxiety. Last time she had symptoms like this patient had been on large quantities of gabapentin. Patient still currently on gabapentin. Patient has not had any medication adjustments recently. She denies taking any extra gabapentin. Prior similar symptoms: Yes PFSH [facility] Medical History (Updated 03/07/22 @ 17:[address] Kirill Reid, DO) Anxiety Anxiety and depression Asthma Asthma exacerbation Below knee amputation Benign essential HTN BiPAP (biphasic positive airway pressure) dependence Bronchospasm Depression Failure of outpatient treatment Family history of diabetes mellitus (DM) Fibromyalgia Former smoker GERD (gastroesophageal reflux disease) Hypertension Morbid obesity Necrotizing fasciitis Obstructive sleep apnea Reflex sympathetic dystrophy Restless leg syndrome Rheumatoid arthritis Sleep apnea Home Medications cyclobenzaprine 10 mg PO QHS 06/06/14 [History Last Taken 06/14/21] furosemide 40 mg PO BID PRN 06/13/17 [History Last Taken 06/14/21] citalopram 40 mg PO DAILY 08/25/18 [History Last Taken 06/15/21] potassium chloride 40 meq PO DAILY 11/01/18 [History Last Taken 06/15/21] gabapentin 600 mg PO BID 09/20/19 [History Last Taken 06/15/21] oxycodone-acetaminophen 2 tab PO QHS PRN PRN 09/20/19 [History Last Taken 1 Week Ago ~06/08/21] albuterol sulfate 90 mcg/actuation aerosol inhaler 2 puff INHALATION Q6H PRN #8.5 g 05/11/21 [Rx Last Taken 06/15/21] amitriptyline 50 mg PO QHS 05/19/21 [History Last Taken 06/14/21] valsartan 320 mg PO DAILY 05/19/21 [History Last Taken 06/15/21] hydrochlorothiazide 12.5 mg PO BID 06/15/21 [History Last Taken 06/15/21] montelukast 10 mg PO DAILY 06/15/21 [History Last Taken 06/15/21] omeprazole 40 mg PO DAILY 06/15/21 [History Last Taken 06/15/21] pramipexole 3 mg PO QHS 06/15/21 [History Last Taken 06/14/21] benzonatate 100 mg PO Q4H PRN PRN #0 cap 10/03/21 [Rx Last Taken Unknown] buspirone 10 mg PO BID #30 tab 10/03/21 [Rx Last Taken Unknown] doxycycline hyclate 100 mg PO BID #10 tab 10/03/21 [Rx Last Taken Unknown] meloxicam 7.5 mg PO BID PRN #0 tab 10/03/21 [Rx Last Taken 06/15/21] prednisone 20 mg PO DAILY #20 tab 10/03/21 [Rx Last Taken Unknown] pseudoephedrine-guaifenesin [Mucus D] 2 tab PO BID #30 tab 10/03/21 [Rx Last Taken Unknown] Allergy/AdvReac Type Severity Reaction Status Date / Time amlodipine AdvReac Swelling Verified 09/30/21 19:13 Family History Mother Hypertension Cancer Pancreatic Diabetes Father Cancer pancreatic Brother Diabetes Grandfather Diabetes Surgical History Chronic knee pain after total replacement of left knee joint H/O foot surgery History of hysterectomy History of tonsillectomy Hx of breast reduction, elective Social History Smoking Status: Former smoker ROS ROS ED Constitutional Constitutional ED: Reports systems reviewed and no addt'l complaints, except as documented; Denies body ache(s), change in weight or chills Eyes Eyes: Denies acute decrease in peripheral vision, change in vision, double vision or loss of vision ENT ENT ED: Reports none; Denies ear pain, lip swelling, loss taste/smell, neck pain, otalgia or sore throat Cardiovascular Cardiovascular: Reports none; Denies abdominal pain, chest pain with activity, leg edema, lightheadedness, palpitations, rapid heart rate or syncope Respiratory/Chest Respiratory/Chest: Reports none; Denies change in mental status, dry cough, dyspnea, hemoptysis, shortness of breath at rest or shortness of breath with exertion Gastrointestinal Gastrointestinal: Reports none; Denies abdominal pain, change in stool character, diarrhea, hematemesis, hematochezia, melena, rectal bleeding or vomiting Genitourinary Genitourinary ED: Reports none; Denies abdominal discomfort, anuria, dysuria, genital pain or polyuria Musculoskeletal Musculoskeletal: Reports none; Denies arthralgias, back pain, difficulty walking, extremity pain, muscle weakness or myalgias Integumentary Reports none; Denies abscess or rash Neurologic Neurologic: Reports none, weakness and other Details: Difficulty with speech ; Denies abnormal gait, confusion, focal weakness, frequent falls, headache(s), loss of vision, numbness, paresthesias, radicular pain or vertigo Psychiatric Psychiatric: Reports systems reviewed and no addt'l complaints, except as documented and none; Denies behavioral changes, confusion, difficulty concentrating, hallucinations, suicidal ideation, tactile hallucinations or visual hallucinations Endocrine Endocrinology: Denies none, cold intolerance, excessive sweating, fatigue or heat intolerance Hematologic/Lymphatic Hematologic/Lymphatic: Reports none; Denies anemia, easy bleeding or easy bruising Allergic/Immunologic Allergic/Immunologic ED: Denies as per HPI, none, lip swelling, mouth swelling, throat swelling, tongue swelling or hives EXAM Physical Exam Const Vital Signs: 03/07/22 16:35 03/07/22 17:10 03/07/22 17:12 Temperature 97.9 F Temperature Source Oral Pulse Rate 103 H 92 Respiratory Rate 18 16 Blood Pressure 119/93 H 131/72 H Blood Pressure Mean 101 91 Pulse Ox 93 96 Oxygen Delivery Method Room Air Room Air Room Air 03/07/22 17:15 03/07/22 17:29 Temperature Temperature Source Pulse Rate 94 93 Respiratory Rate 20 H 20 H Blood Pressure 131/75 H 115/77 Blood Pressure Mean 93 89 Pulse Ox 96 96 Oxygen Delivery Method Room Air Room Air Positive well nourished and well developed General Appearance ED: well developed and NAD HEENT Reports TM's clear and moist mucous membranes normocephalic and atraumatic; Negative for trauma or tenderness Tympanic Membrane ED: Yes TM's clear Eyes PERRL and EOMs intact bilaterally General Eye ED: Negative for pale conjunctiva or scleral icterus Neck no lymphadenopathy, supple and no JVD General: Negative for tenderness Chest Wall inspection of chest normal and palpation of chest normal Chest: Negative for tenderness Resp normal respiratory effort and clear to auscultation bilaterally Effort and Inspection: Negative for respiratory distress or pain with movement Auscultation: Negative for rhonchi, wheezes or diminished lung sounds Cardio regular rate, regular rhythm, S1 normal heart sound, S2 normal heart sound and no murmurs Peripheral Pulses: pulses 2+ throughout GI normal to inspection, nondistended, normoactive bowel sounds, soft to palpation, non-tender, non-distended and no masses Back/Spine no CVA tenderness and no thoracic nor lumbar tenderness Extremity normal to inspection General Extremety ED: Negative for edema General Extremity: Negative for edema Neuro oriented x3, CN's II-XII intact bilaterally, no sensory deficits noted and gait normal Neuro Narrative: Finger-nose within normal limits. No obvious focal deficits noted on exam. There is no facial droop. Slurred speech and at times some expressive aphasia. Sensorium / Orientation: awake, alert, oriented to person, oriented to place and oriented to time Motor Exam: strength 5/5 throughout and strength abnormal Psych mental status grossly normal Skin no rashes or lesions noted and no wounds STROKE Vital Signs/Narrative: Vital Signs Temp Pulse Resp BP Pulse Ox 03/07/22 17:29 93 20 H 115/77 96 03/07/22 17:15 94 20 H 131/75 H 96 03/07/22 17:10 92 16 131/72 H 96 03/07/22 16:35 97.9 F 103 H 18 119/93 H 93 MDM MDM MDM Narrative Medical decision making narrative: Established on arrival. Because of the slurred speech and expressive aphasia and subjective feeling of right-sided weakness we did call a stroke team although she was not in the thrombolytic window and she is not a thrombolytic candidate. Her CT brain was unremarkable and the CTA of head and neck did not show any large vessel occlusions. Lab work-up was significant for a low hemoglobin of 8.6 however labs otherwise unremarkable. I did order a urinalysis. At this point etiology of her symptoms are unclear but in the differential would be stroke versus medication reaction versus metabolic disorder. Case will be discussed with hospitalist will evaluate patient for admission. I did discuss case with stroke neurologist at [facility] as well who recommended admission for MRI of her brain. Lab Data Attestation: I reviewed the patient's lab results. Labs: Laboratory Results - last 24 hr 03/07/22 03/07/22 03/07/22 16:28 16:28 16:28 WBC 6.8 RBC 3.50 L Hgb 8.6 L Hct 28.1 L MCV 80.3 L MCH 24.6 L MCHC 30.6 L RDW Std Deviation 45.7 H RDW Coeff of [place] 15.8 H Plt Count 507 H MPV 10.1 Immature Gran % (Auto) 0.400 Neut % (Auto) 56.2 Lymph % (Auto) 27.9 [place] % (Auto) 11.4 H Eos % (Auto) 3.2 Baso % (Auto) 0.9 Absolute Neuts (auto) 3.8 Absolute Lymphs (auto) 1.89 Nucleated RBC % 0.3 PT 13.6 INR 1.1 APTT 31.5 Sodium 138 Potassium 3.8 Chloride 105 Carbon Dioxide 26.0 Anion Gap 7 BUN 13 Creatinine 0.74 Estim Creat Clear Calc 76.65 Est GFR (MDRD) Af Amer 102 Est GFR (MDRD) Non-Af 84 BUN/Creatinine Ratio 17.5 Glucose 135 H Calcium 8.9 Troponin I High Sens 4 POC Glucose 03/07/22 16:46 WBC RBC Hgb Hct MCV MCH MCHC RDW Std Deviation RDW Coeff of [place] Plt Count MPV Immature Gran % (Auto) Neut % (Auto) Lymph % (Auto) [place] % (Auto) Eos % (Auto) Baso % (Auto) Absolute Neuts (auto) Absolute Lymphs (auto) Nucleated RBC % PT INR APTT Sodium Potassium Chloride Carbon Dioxide Anion Gap BUN Creatinine Estim Creat Clear Calc Est GFR (MDRD) Af Amer Est GFR (MDRD) Non-Af BUN/Creatinine Ratio Glucose Calcium Troponin I High Sens POC Glucose 123 H Radiography Diagnostic Testing: Clinical Impression(s) from Imaging Studies Brain CT 03/07/22 16:50 IMPRESSION: Negative head/brain CT without intravenous contrast. Electronically Signed: Amaury Hooks MD at 17:08 EDT , ADDENDUM: 03/07/22 1721 IMPRESSION: Negative head/brain CT without intravenous contrast. N.B. : The above Results were Read Back by Amaury Hooks MD to Dr Ramiro MD, and understanding confirmed on 03/07/2022 17:14:08 (ET). Electronically Signed: Amaury Hooks MD at 17:08 EDT , Head/Neck CTA 03/07/22 16:51 IMPRESSION: 1. There are no acute findings of the [place] without a demonstrated aneurysm or hemodynamically significant stenosis. ALL ABOVE CRITERIA BY NASCET. 2. There are no acute findings of the right and left internal carotid artery. ALL ABOVE CRITERIA BY NASCET. Critical finding called and case discussed. Electronically Signed: Amaury Hooks MD at 17:21 EDT , ADDENDUM: 03/07/22 1731 IMPRESSION: 1. There are no acute findings of the [place] without a demonstrated aneurysm or hemodynamically significant stenosis. ALL ABOVE CRITERIA BY NASCET. 2. There are no acute findings of the right and left internal carotid artery. ALL ABOVE CRITERIA BY NASCET. Critical finding called and case discussed. N.B. : The above Results were Read Back by Amaury Hooks MD to Dr Ramiro MD, and understanding confirmed on 03/07/2022 17:24:56 (ET). Electronically Signed: Amaury Hooks MD at 17:21 EDT , Stroke Documentation Questions Stroke Team Activated: Yes Reviewed Inclusion/Exclusion criteria: Yes Was Patient considered for Endovascular Intervention?: No-CTA negative, determined not to be an endovascular candidate Discharge Plan Triage Chief Complaint: Neuro S/Sx ED Provider: Kirill Reid Dx/Rx/DC Orders Clinical Impression: Weakness, Expressive aphasia, Slurred speech, Anemia Prescriptions: No Action albuterol sulfate 90 mcg/actuation HFA aerosol inhaler 2 puff inhalation Q6H PRN (Reason: shortness of breath or wheezing) Qty: 8.5 RF: 6 cyclobenzaprine 10 MG tablet 10 mg PO QHS RF: 0 furosemide 40 MG tablet 40 mg PO BID PRN (Reason: fluid overload) RF: 0 citalopram 40 MG tablet 40 mg PO DAILY RF: 0 potassium chloride 20 MEQ tablet 40 meq PO DAILY RF: 0 gabapentin 600 MG tablet 600 mg PO BID RF: 0 oxycodone-acetaminophen 1 TABLET tablet 2 tab PO QHS PRN PRN (Reason: Pain) RF: 0 valsartan 320 mg tablet 320 mg PO DAILY RF: 0 amitriptyline 50 mg tablet 50 mg PO QHS RF: 0 omeprazole 40 mg capsule,delayed release(DR/EC) 40 mg PO DAILY RF: 0 hydrochlorothiazide 12.5 mg capsule 12.5 mg PO BID RF: 0 montelukast 10 mg tablet 10 mg PO DAILY RF: 0 pramipexole 1.5 mg tablet 3 mg PO QHS RF: 0 benzonatate 100 mg Capsule 100 mg PO Q4H PRN PRN (Reason: cough) Qty: 0 RF: 0 prednisone 20 mg tablet 20 mg PO DAILY Qty: 20 RF: 0 buspirone 10 mg tablet 10 mg PO BID Qty: 30 RF: 0 meloxicam 7.5 MG tablet 7.5 mg PO BID PRN (Reason: KNEE PAIN) Qty: 0 RF: 0 doxycycline hyclate 100 mg tablet 100 mg PO BID Qty: 10 RF: 0 pseudoephedrine-guaifenesin [Mucus D] 60-600 mg tablet extended release 12 hr 2 tab PO BID Qty: 30 RF: 0 Primary Care Provider: Butch Maddox NP Referrals: Butch Maddox NP, PSYCHOLOGIST SOCIAL-C [Primary Care Provider] - Disposition Disposition: Acute Care [facility]
--- NOTE | 2022-03-07 16:55 | CM.ED ---
SW Note SW responded to stroke alert. No family present and patient is in imaging. SW remains available if needs arise. Carissa VU
[2022-03-07 16:56] LABS: Bedside Glucose 123 mg/dL (74-106)
--- NOTE | 2022-03-07 17:00 | NURSING ---
[id number] STROKE ALERT CALLED FACESHEET FAXED TO [facility]
[2022-03-07 17:12] LABS: Absolute Lymphocyte Count 1.89 X10^3/uL (0.83-4.51); Absolute Neutrophil Count 3.8 X10^3/uL (2.0-7.7); Basophil# 0.06 X10^3/uL; Basophil% 0.9 % (0-1); Eosinophil# 0.22 X10^3/uL; Eosinophils% 3.2 % (0-5); Hematocrit 28.1 % (37-47); Hemoglobin 8.6 g/dL (12.0-15.0); Lymphocyte # 1.89 X10^3/ul (0.83-4.51); Lymphocyte % 27.9 % (19-41); Mean Corp Hgb Conc 30.6 g/dL (32-36); Mean Corpuscular Hgb 24.6 pg (27.0-32.0); Mean Corpuscular Volume 80.3 fL (81-99); Mean Platelet Vol. 10.1 fl (6.2-12.0); Monocyte# 0.77 X10^3/uL; Monocyte% 11.4 % (0-10); NRBC Flagged by Analyzer 0.3 % (0-5); Neutrophil # 3.81 X10^3/uL (2.7-7.7); Neutrophil % 56.2 % (47-70); Platelet Count 507 K/mm3 (150-450); RBC Distribution Width CV 15.8 % (11.6-14.6); RBC Distribution Width SD 45.7 fl (35.1-43.9); White Blood Count 6.8 K/mm3 (4.4-11.0)
--- NOTE | 2022-03-07 17:14 | ED.RN ---
Prior to arrival nitesh called stroke team. Per Dr Reid pt is outside [facility] window. He wanted to see pt prior to calling stroke team. Pt to rm 3. After Dr Reid assessment stroke team called per his request.
[2022-03-07 17:17] LABS: International Normalized Ratio 1.1; Partial Thromboplast Time 31.5 Seconds (24.1-36.2); Prothrombin Time (Protime)PT. 13.6 SECONDS (11.7-14.9)
[2022-03-07 17:18] LABS: Anion Gap 7 (5-15); BUN 13 mg/dL (7-18); BUN/Creat Ratio 17.5 RATIO (10-20); Calcium,Total 8.9 mg/dL (8.5-10.1); Chloride 105 mmol/L (98-107); Creatinine, Serum 0.74 mg/dL (0.55-1.02); EST Glomerular Filtration Rate 84 mL/min (>60); Est Glom Filt Rate - Afr Amer 102 mL/min (>60); Estimated Creatinine Clearance 76.65 ml/min; Glucose 135 mg/dL (74-106); Potassium 3.8 mmol/L (3.5-5.1); Sodium Level 138 mmol/L (136-145); Troponin-I HS 4 pg/mL (3.0-54.0)
--- NOTE | 2022-03-07 17:22 | CM.ED ---
SW Note PETR met with patient's sister Dominga and patient. Emotional support provided. PETR remains available. Carissa VU
--- NOTE | 2022-03-07 17:42 | HP.PCM.HOS_ITS ---
HPI - General General Date of Admission: 03/07/22 HPI Narrative SAULO PUENTES, is a 61 F who presents with a PMH as outlined who was admitted via the ED with a complaint of slurred speech and generalized weakness. She says her symptoms started one day prior to admission. She has symptoms of not gotten worse but persisted so she came into the ED. She denied any focal weakness, numbness or tingling and denied having any such symptoms in the past. She says her amitriptyline dose was increased recently by her PCP to help her sleep better and after that her symptoms started. She denied any fever, chills, cough, chest pain, palpitation, dizziness, nausea vomiting or diarrhea. Review of systems otherwise negative. Vitals in the ED with temperature of 98.3 Fahrenheit with blood pressure 120/85, respiratory rate of 18 and show saturating at 96% on room air. CBC showed hemoglobin of 8.6 with WBC of 6.8 and platelets of 507. Chemistry was essentially unremarkable. CT of the brain showed no acute intracranial pathology and CT of the head and neck showed no evidence of any hemodynamically significant stenosis. She has been admitted to be managed for slurred speech and debility to rule out a stroke. [facility] Medical History (Updated 03/07/22 @ 17:[address] Kirill Reid, DO) Anxiety Anxiety and depression Asthma Asthma exacerbation Below knee amputation Benign essential HTN BiPAP (biphasic positive airway pressure) dependence Bronchospasm Depression Failure of outpatient treatment Family history of diabetes mellitus (DM) Fibromyalgia Former smoker GERD (gastroesophageal reflux disease) Hypertension Morbid obesity Necrotizing fasciitis Obstructive sleep apnea Reflex sympathetic dystrophy Restless leg syndrome Rheumatoid arthritis Sleep apnea Home Medications cyclobenzaprine 10 mg PO QHS 06/06/14 [History Last Taken 06/14/21] furosemide 40 mg PO BID PRN 06/13/17 [History Last Taken 06/14/21] citalopram 40 mg PO DAILY 08/25/18 [History Last Taken 06/15/21] potassium chloride 40 meq PO DAILY 11/01/18 [History Last Taken 06/15/21] gabapentin 600 mg PO BID 09/20/19 [History Last Taken 06/15/21] oxycodone-acetaminophen 2 tab PO QHS PRN PRN 09/20/19 [History Last Taken 1 Week Ago ~06/08/21] albuterol sulfate 90 mcg/actuation aerosol inhaler 2 puff INHALATION Q6H PRN #8.5 g 05/11/21 [Rx Last Taken 06/15/21] amitriptyline 100 mg PO QHS 05/19/21 [History Last Taken 03/06/22 21:00] valsartan 320 mg PO DAILY 05/19/21 [History Last Taken 06/15/21] hydrochlorothiazide 12.5 mg PO BID 06/15/21 [History Last Taken 06/15/21] montelukast 10 mg PO DAILY 06/15/21 [History Last Taken 06/15/21] omeprazole 40 mg PO DAILY 06/15/21 [History Last Taken 06/15/21] pramipexole 3 mg PO QHS 06/15/21 [History Last Taken 06/14/21] buspirone 10 mg PO BID #30 tab 10/03/21 [Rx Last Taken Unknown] doxycycline hyclate 100 mg PO BID #10 tab 10/03/21 [Rx Last Taken Unknown] meloxicam 7.5 mg PO BID PRN #0 tab 10/03/21 [Rx Last Taken 06/15/21] prednisone 20 mg PO DAILY #20 tab 10/03/21 [Rx Last Taken Unknown] Allergy/AdvReac Type Severity Reaction Status Date / Time amlodipine AdvReac Swelling Verified 09/30/21 19:13 Family History Mother Hypertension Cancer Pancreatic Diabetes Father Cancer pancreatic Brother Diabetes Grandfather Diabetes Surgical History Chronic knee pain after total replacement of left knee joint H/O foot surgery History of hysterectomy History of tonsillectomy Hx of breast reduction, elective Social History Smoking Status: Former smoker ROS Review of Systems ROS Unobtainable: Denies due to encephalopathy Constitutional Constitutional: Reports fatigue, malaise and weakness; Denies anorexia or chills Eyes Eyes: Denies change in vision ENT HEENT: Denies headache(s) Cardiovascular Cardiovascular: Denies chest pain, dyspnea on exertion, edema, lightheadedness, orthopnea, palpitations, paroxysmal nocturnal dyspnea, rapid heart rate or syncope Respiratory/Chest Respiratory/Chest: Denies cough, dyspnea, productive cough, shortness of breath at rest or shortness of breath with exertion Gastrointestinal Gastrointestinal: Denies abdominal pain, diarrhea, nausea or vomiting Genitourinary Genitourinary: Denies burning urination, dysuria, hematuria or urinary urgency Musculoskeletal Musculoskeletal: Denies arthralgias, back pain or joint stiffness Neurologic Neurologic: Reports abnormal speech; Denies confusion, dizziness, focal weakness, headache(s), numbness, seizure-like activity, seizures, syncope or tingling Psychiatric Psychiatric: Denies anxiety or depression Endocrine Endocrinology: Denies change in body appearance Hematologic/Lymphatic Hematologic/Lymphatic: Denies anemia Vital Signs Vital Signs Vital Signs: 03/07/22 16:35 03/07/22 17:10 03/07/22 17:12 Temperature 97.9 F Temperature Source Oral Pulse Rate 103 H 92 Respiratory Rate 18 16 Blood Pressure 119/93 H 131/72 H Blood Pressure Mean 101 91 Pulse Ox 93 96 Oxygen Delivery Method Room Air Room Air Room Air 03/07/22 17:15 03/07/22 17:29 Temperature Temperature Source Pulse Rate 94 93 Respiratory Rate 20 H 20 H Blood Pressure 131/75 H 115/77 Blood Pressure Mean 93 89 Pulse Ox 96 96 Oxygen Delivery Method Room Air Room Air Weight Weight: 335 lb 1.642 oz Body Mass Index (BMI) 52.4 Physical Exam Const alert and oriented x3 Constitutional Narrative: super morbid obesity General Appearance: cooperative HEENT normocephalic, head/scalp atraumatic, hearing grossly normal bilaterally and moist oral mucous membranes Eyes PERRL, EOMs intact bilaterally and conjunctivae normal Neck no lymphadenopathy, supple and no JVD Resp normal respiratory effort, no retractions, no use of accessory muscles and clear to auscultation bilaterally Cardio regular rate, regular rhythm, S1 normal heart sound, S2 normal heart sound and no murmurs GI normal to inspection, nondistended, normoactive bowel sounds, soft to palpation, non-tender and non-distended Extremity Extremity Narrative: LLE wrapped in bandage- has histoy of necrotising fasciitis RLE AKA with prosthesis in place Peripheral Pulses: Yes pulses 2+ throughout Skin Skin Narrative: as under extremities Neuro oriented x3, CN's II-XII intact bilaterally and moves all extremities Sensorium / Orientation: awake and alert Psych affect normal Results Lab / Micro Data Result Diagrams: 03/07/22 16:28 03/07/22 16:28 Labs: Laboratory Results - last 24 hr 03/07/22 16:28: WBC 6.8, RBC 3.50 L, Hgb 8.6 L, Hct 28.1 L, MCV 80.3 L, MCH 24.6 L, MCHC 30.6 L, RDW Std Deviation 45.7 H, RDW Coeff of Anga 15.8 H, Plt Count 507 H, MPV 10.1, Immature Gran % (Auto) 0.400, Neut % (Auto) 56.2, Lymph % (Auto) 27.9, Wilkes % (Auto) 11.4 H, Eos % (Auto) 3.2, Baso % (Auto) 0.9, Absolute Neuts (auto) 3.8, Absolute Lymphs (auto) 1.89, Nucleated RBC % 0.3 03/07/22 16:28: PT 13.6, INR 1.1, APTT 31.5 03/07/22 16:28: Sodium 138, Potassium 3.8, Chloride 105, Carbon Dioxide 26.0, Anion Gap 7, BUN 13, Creatinine 0.74, Estim Creat Clear Calc 76.65, Est GFR (MDRD) Af Amer 102, Est GFR (MDRD) Non-Af 84, BUN/Creatinine Ratio 17.5, Glucose 135 H, Calcium 8.9, Troponin I High Sens 4 03/07/22 16:46: POC Glucose 123 H Radiology Impression Brain CT 03/07/22 16:50 IMPRESSION: Negative head/brain CT without intravenous contrast. Electronically Signed: Amaury Hooks MD at 17:08 EDT Reading Location ID and State: [facility] / [place] , Service support , ADDENDUM: 03/07/22 1721 IMPRESSION: Negative head/brain CT without intravenous contrast. N.B. : The above Results were Read Back by Amaury Hooks MD to Dr Ramiro MD, and understanding confirmed on 03/07/2022 17:14:08 (ET). Electronically Signed: Amaury Hooks MD at 17:08 EDT , Head/Neck CTA 03/07/22 16:51 IMPRESSION: 1. There are no acute findings of the [place] without a demonstrated aneurysm or hemodynamically significant stenosis. ALL ABOVE CRITERIA BY NASCET. 2. There are no acute findings of the right and left internal carotid artery. ALL ABOVE CRITERIA BY NASCET. Critical finding called and case discussed. Electronically Signed: Amaury Hooks MD at 17:21 EDT , ADDENDUM: 03/07/22 1731 IMPRESSION: 1. There are no acute findings of the [place] without a demonstrated aneurysm or hemodynamically significant stenosis. ALL ABOVE CRITERIA BY NASCET. 2. There are no acute findings of the right and left internal carotid artery. ALL ABOVE CRITERIA BY NASCET. Critical finding called and case discussed. N.B. : The above Results were Read Back by Amaury Hooks MD to Dr Ramiro MD, and understanding confirmed on 03/07/2022 17:24:56 (ET). Electronically Signed: Amaury Hooks MD at 17:21 EDT , Assessment & Plan Assessment/Plan (1) Expressive aphasia: (2) Slurred speech: (3) Weakness: PLAN: #Expressive aphasia with slurred speech and weakness * admit to PCU * aspirin 81mg daily and high intensity statin * CT of [facility] brain was negative for any evidence of stroke * CTA of the head and neck showed no evidence of hemodynamically significant stenosis * get MRI of the brain- patient has both pain stimulator and bladder stimulator and would need further information provided about these before she can get the MRI * 2D echo ordered * bedside speech evaluation, and if she passes that, to get a diet order * PT/OT consult * fall precautions * #Benign essential hypertension; hold BP meds and allow for permissive hyper tension in case she has a stroke. IV labetalol prn #Fibromyalgia: * hold amitryptiline for now. it was recently increased and this could be accounting for her symptoms. * on gabapentin * #Depression: on buspirone and citalopram #History of anemia * Hb is 8.6. Was 13 in December 2021. * says she is known to have anemia. * Follow up with PCP on outpatient basis for further workup as needed * check iron panel * #History of asthma: on breathing treatment wtih bronchodilators. Not in exacerbation #Necrotising fasciitis: follows up at [place]. LLE wrapped in bandage. Consult wound care #Super morbid obesity * Complicates acute care, expected recovery and prognosis. * DVT prophylaxis; SCDs Code status: full code * Patient counseled extensively about different types of CODE STATUS including full code, DNR CCA and DNR CCA. Patient elects to be full code. Total meaj-hn-cfmr time 16 minutes. Charges/Coding Visit Charges OBSV E&M: 07185 Initial observation care L2 Procedures Hospitalists Procedures: 10787 Advncd Care Plan 30 Min
--- NOTE | 2022-03-07 17:43 | NURSING ---
DR NYA NUNEZ
[2022-03-07] MEDS: Aspirin 81 MG TAB.CHEW PO (17:47)
[2022-03-07] MEDS: 0.9% Normal Saline 1,000 ML 100 ML IV (17:47)
--- NOTE | 2022-03-07 17:54 | NURSING ---
PCU OBS KORAM WEAKENSS, SLURRED SPEECH, CVA
--- NOTE | 2022-03-07 17:55 | RAD_ITS ---
STUDY: XR Chest 1 View 03/07/2022 5:54 PM REASON FOR EXAM: Female, 61 years old. CHEST PAIN Neuro deficit, acute, stroke suspected COMPARISON: 01.21.22 TECHNIQUE: XR Chest 1 View FINDINGS: There is no demonstrated pleural abnormality. Normal heart size. Normal mediastinum. Normal jimmy. Prominent appearing increased interstitial lung markings. Normal visualized pulmonary arteries. There is atherosclerotic calcification of the aortic arch with tortuosity. There are diffuse degenerative changes of the visualized thoracic spine. There is degenerative osteoarthritis of the bilateral shoulders. There is no demonstrated abnormality of the visualized soft tissue structures of the upper abdomen. RAD/Chest 1 View IMPRESSION: There are no acute findings. Electronically Signed: Amaury Hooks MD at 18:10 EDT ,
[2022-03-07 21:25] LABS: Ferritin 32 ng/mL (8-252); Iron 17 ug/dL (50-170); Iron Binding Capacity,Total 285 ug/dL (250-450)
[2022-03-07] MEDS: Atorvastatin Calcium 80 MG Tablet PO (22:15)
[2022-03-07] MEDS: Pramipexole Di-HCl 1 MG Tablet 3 MG PO (22:16)
[2022-03-07] MEDS: Amitriptyline 25 MG Tablet 50 MG PO (22:16)
[2022-03-07] MEDS: cycloBENZAPRine HCl 10 MG Tablet PO (22:16)
[2022-03-07] MEDS: Gabapentin 600 MG Tablet PO (22:21)
[2022-03-08] VITALS (12 sets, daily range): BP systolic 103–131; BP diastolic 75–90; PULSE 83–109; RESP 16–36; TEMP 36.4–37.1; O2SAT 94–99; BMI 50.8
[2022-03-08] MEDS: 0.9% Saline Lock 10 ML Syringe IV ×2 (03:49→17:01)
--- NOTE | 2022-03-08 05:55 | ECHOCS_ITS ---
Reason For Study: Emboli Procedure This was a 2D Doppler, Color Flow transthoracic echocardiogram. Technically difficult study due to patients body habitus. Contrast injection and Bubble study performed. Exam performed portable in patient room. Left Ventricle Normal LV size. Left ventricular systolic function is normal. The estimated ejection fraction is 60 %. Stage 1 diastolic dysfunction. No regional wall motion abnormalities noted. Right Ventricle Normal RV size. Normal systolic function. Atria Normal left atrium. Normal right atrium. Mitral Valve Normal mitral valve. Tricuspid Valve The tricuspid valve is not well visualized. Aortic Valve The aortic valve is not well visualized. Pulmonic Valve Normal pulmonic valve. Great Vessels Normal aortic root. The pulmonary artery is normal size. Normal inferior vena cava. Pericardium/Pleural No pericardial effusion. Medication Diluted definity 3ml given slow IV push to enhance endocardial definition. Performed a rapid injection of agitated mix of 9 cc saline and 1cc air to assess for atrial septal defect. MMode/2D Measurements & Calculations LVIDd: 3.7 cm IVSd: 1.2 cm Ao root diam: 3.6 cm LVIDs: 2.8 cm LVPWd: 1.4 cm RVDd: 4.0 cm FS: 25.4 % LAV(MOD-sp4): 92.9 ml LA A4 area: 28.6 cm2 RA A4 area: 26.1 cm2 Time Measurements MV dec time: 0.21 sec Doppler Measurements & Calculations MV E max alberto: 63.8 cm/sec Lat Peak E' Alberto: 12.5 cm/sec Med Peak E' Alberto: 9.2 cm/sec MV A max alberto: 84.2 cm/sec E/E' lat: 5.1 E/E' med: 6.9 MV E/A: 0.76 MV V2 max: 95.0 cm/sec MV P1/2t max alberto: 75.8 cm/sec Ao V2 max: 147.7 cm/sec MV max P.6 mmHg MV P1/2t: 62.5 msec Ao max P.7 mmHg MV V2 mean: 53.6 cm/sec MV dec slope: 354.9 cm/sec2 MV mean P.4 mmHg MV V2 VTI: 18.4 cm MVA(P1/2t): 3.5 cm2 LV V1 max: 104.9 cm/sec PA V2 max: 90.5 cm/sec LV V1 max P.4 mmHg ECHO/Echo Complete W/ Contrast Interpretation Summary Normal LV size. Left ventricular systolic function is normal. The estimated ejection fraction is 60 %. Stage 1 diastolic dysfunction. Contrast injection was performed. Ordering Physician: Mag Cantu Referring Physician: No PCP Noted Performed By: Alexandr Mazariegos RCS
[2022-03-08 06:01] LABS: Absolute Neutrophil Count 2.6 X10^3/uL (2.0-7.7); Basophil# 0.04 X10^3/uL; Basophil% 0.8 % (0-1); Eosinophil# 0.22 X10^3/uL; Eosinophils% 4.2 % (0-5); Hematocrit 28.4 % (37-47); Hemoglobin 8.6 g/dL (12.0-15.0); Lymphocyte % 32.4 % (19-41); Mean Corp Hgb Conc 30.3 g/dL (32-36); Mean Corpuscular Hgb 24.6 pg (27.0-32.0); Mean Corpuscular Volume 81.1 fL (81-99); Mean Platelet Vol. 9.8 fl (6.2-12.0); Monocyte# 0.66 X10^3/uL; Monocyte% 12.6 % (0-10); NRBC Flagged by Analyzer 0 % (0-5); Neutrophil # 2.57 X10^3/uL (2.7-7.7); Neutrophil % 48.9 % (47-70); Platelet Count 489 K/mm3 (150-450); RBC Distribution Width CV 15.9 % (11.6-14.6); RBC Distribution Width SD 46.5 fl (35.1-43.9); White Blood Count 5.3 K/mm3 (4.4-11.0)
[2022-03-08 06:50] LABS: Anion Gap 5 (5-15); BUN 11 mg/dL (7-18); BUN/Creat Ratio 15.6 RATIO (10-20); Calcium,Total 8.8 mg/dL (8.5-10.1); Chloride 106 mmol/L (98-107); Cholesterol 141 mg/dL (200); EST Glomerular Filtration Rate 89 mL/min (>60); Est Glom Filt Rate - Afr Amer 108 mL/min (>60); Estimated Creatinine Clearance 81.03 ml/min; Glucose 107 mg/dL (74-106); High Density Lipoprotein 43 mg/dL; Potassium 3.8 mmol/L (3.5-5.1); Sodium Level 139 mmol/L (136-145); Triglycerides 112 mg/dL; Very Low Density Lipoprotein 22 mg/dL (5-40)
[2022-03-08] MEDS: Aspirin 81 MG TAB.CHEW PO (08:23)
[2022-03-08] MEDS: Montelukast 10 MG Tablet PO (08:23)
[2022-03-08] MEDS: Citalopram 40 MG TABLET PO (08:23)
[2022-03-08] MEDS: Potassium Chloride Oral Tablet 20 MEQ 40 MEQ PO (08:23)
[2022-03-08] MEDS: Pantoprazole Sodium 40 MG Tablet PO (08:23)
[2022-03-08] MEDS: Gabapentin 600 MG Tablet PO (08:23)
--- NOTE | 2022-03-08 10:11 | WOUNDNOTE ---
wound photo: left lower leg (anteromedial view)
--- NOTE | 2022-03-08 10:12 | WOUNDNOTE ---
wound photo: left lateral lower leg
--- NOTE | 2022-03-08 10:13 | WOUNDNOTE ---
wound photo: left lateral leg
--- NOTE | 2022-03-08 10:13 | WOUNDNOTE ---
wound photo: left posterior lower leg
[2022-03-08] MEDS: Albuterol 2.5 MG/3 ML VIAL.NEB. INHALATION ×2 (10:47→18:33)
--- NOTE | 2022-03-08 12:35 | PCM.PN.HOSP ---
Documented by User: Ann Marie Mcfarland NP, ASSOCIATE SOFTWARE ENGINEER[employer] 03/08/22 13:04 Subjective Subjective Patient seen and examined. Reports some slurred speech still and generalized weakness. States she has had to use a walker over the past 2 days which she has not needed in quite a while prior to this. Denies focal deficits or other neurologic symptoms. Objective Data Objective Data Vital Signs: Vital Signs Temp Pulse Resp BP Pulse Ox 97.7 F L 90 18 131/79 H 94 03/08/22 10:00 03/08/22 10:50 03/08/22 10:50 03/08/22 10:00 03/08/22 10:00 Oxygen Delivery Method Room Air Weight: 324 lb 15.382 oz Body Mass Index (BMI) 50.8 Intake & Output: Intake and Output for Last 24 Hours 03/06/22 03/07/22 03/08/22 23:59 23:59 23:59 Intake Total 1000 / 1000 Output Total 500 / 500 250 / 250 Balance -500 / -500 750 / 750 Lab / Micro Data Result Diagrams: 03/08/22 05:26 03/08/22 05:26 Labs: Laboratory Results - last 24 hr 03/07/22 16:26: Iron 17 L, TIBC 285, Iron Saturation 6.0 L, Ferritin 32 03/07/22 16:28: WBC 6.8, RBC 3.50 L, Hgb 8.6 L, Hct 28.1 L, MCV 80.3 L, MCH 24.6 L, MCHC 30.6 L, RDW Std Deviation 45.7 H, RDW Coeff of Naga 15.8 H, Plt Count 507 H, MPV 10.1, Immature Gran % (Auto) 0.400, Neut % (Auto) 56.2, Lymph % (Auto) 27.9, Johnson % (Auto) 11.4 H, Eos % (Auto) 3.2, Baso % (Auto) 0.9, Absolute Neuts (auto) 3.8, Absolute Lymphs (auto) 1.89, Nucleated RBC % 0.3 03/07/22 16:28: PT 13.6, INR 1.1, APTT 31.5 03/07/22 16:28: Sodium 138, Potassium 3.8, Chloride 105, Carbon Dioxide 26.0, Anion Gap 7, BUN 13, Creatinine 0.74, Estim Creat Clear Calc 76.65, Est GFR (MDRD) Af Amer 102, Est GFR (MDRD) Non-Af 84, BUN/Creatinine Ratio 17.5, Glucose 135 H, Calcium 8.9, Troponin I High Sens 4 03/07/22 16:46: POC Glucose 123 H 03/08/22 05:26: WBC 5.3, RBC 3.50 L, Hgb 8.6 L, Hct 28.4 L, MCV 81.1, MCH 24.6 L, MCHC 30.3 L, RDW Std Deviation 46.5 H, RDW Coeff of Naga 15.9 H, Plt Count 489 H, MPV 9.8, Immature Gran % (Auto) 1.100 H, Neut % (Auto) 48.9, Lymph % (Auto) 32.4, Johnson % (Auto) 12.6 H, Eos % (Auto) 4.2, Baso % (Auto) 0.8, Absolute Neuts (auto) 2.6, Absolute Lymphs (auto) 1.70, Nucleated RBC % 0 03/08/22 05:26: Sodium 139, Potassium 3.8, Chloride 106, Carbon Dioxide 28.0, Anion Gap 5, BUN 11, Creatinine 0.70, Estim Creat Clear Calc 81.03, Est GFR (MDRD) Af Amer 108, Est GFR (MDRD) Non-Af 89, BUN/Creatinine Ratio 15.6, Glucose 107 H, Calcium 8.8, Triglycerides 112, Cholesterol 141, LDL Cholesterol 76, VLDL Cholesterol 22, HDL Cholesterol 43 Radiography Diagnostic Testing: Radiology Impression Brain CT 03/07/22 16:50 IMPRESSION: Negative head/brain CT without intravenous contrast. Electronically Signed: Amaury Hooks MD at 17:08 EDT Reading Location ID and State: [facility] / [place] , Service support , ADDENDUM: 03/07/22 2724 IMPRESSION: Negative head/brain CT without intravenous contrast. N.B. : The above Results were Read Back by Amaury Hooks MD to Dr Ramiro MD, and understanding confirmed on 03/07/2022 17:14:08 (ET). Electronically Signed: Amaury Hooks MD at 17:08 EDT , Head/Neck CTA 03/07/22 16:51 IMPRESSION: 1. There are no acute findings of the [place] without a demonstrated aneurysm or hemodynamically significant stenosis. ALL ABOVE CRITERIA BY NASCET. 2. There are no acute findings of the right and left internal carotid artery. ALL ABOVE CRITERIA BY NASCET. Critical finding called and case discussed. Electronically Signed: Amaury Hooks MD at 17:21 EDT , ADDENDUM: 03/07/22 1731 IMPRESSION: 1. There are no acute findings of the [place] without a demonstrated aneurysm or hemodynamically significant stenosis. ALL ABOVE CRITERIA BY NASCET. 2. There are no acute findings of the right and left internal carotid artery. ALL ABOVE CRITERIA BY NASCET. Critical finding called and case discussed. N.B. : The above Results were Read Back by Amaury Hoosk MD to Dr Ramiro MD, and understanding confirmed on 03/07/2022 17:24:56 (ET). Electronically Signed: Amaury Hooks MD at 17:21 EDT , Chest X-Ray 03/07/22 17:55 IMPRESSION: There are no acute findings. Electronically Signed: Amaury Hooks MD at 18:10 EDT , Echocardiogram 03/08/22 05:55 Interpretation Summary Normal LV size. Left ventricular systolic function is normal. The estimated ejection fraction is 60 %. Stage 1 diastolic dysfunction. Contrast injection was performed. Ordering Physician: Mag Cantu Referring Physician: No PCP Noted Performed By: Alexandr Mazariegos RCS Physical Exam Const alert and oriented x3 Orientation / Consciousness: awake, oriented to person, oriented to place and oriented to time Nutritional Appearance: obese HEENT normocephalic and moist oral mucous membranes Eyes PERRL, EOMs intact bilaterally and conjunctivae normal Neck no lymphadenopathy Resp normal respiratory effort and clear to auscultation bilaterally Cardio regular rate, regular rhythm and no murmurs Peripheral Pulses: pulses 2+ throughout GI normal to inspection, nondistended, normoactive bowel sounds, non-tender and non-distended Extremity normal to inspection Extremity Narrative: Right lower extremity prosthesis Skin no rashes or lesions noted Lesions: no lesions Rashes: no rashes Trauma: no lacerations or abrasions Neuro CN's II-XII intact bilaterally, no focal motor deficits, no sensory deficits noted and deep tendon reflexes 2+ bilaterally Neuro Narrative: Mild slurred speech Psych mental status grossly normal and affect normal Assessment & Plan Assessment/Plan (1) Weakness: (2) Slurred speech: PLAN: 1. Slurred speech, weakness-rule out CVA. Polypharmacy may be contributing as well. Hold sedating regimen including gabapentin, cyclobenzaprine, amitriptyline. CTA of head and neck on admission without significant stenosis. CT of brain without stroke. Repeat CT of brain in 24 hours as patient cannot have MRI due to pain and bladder stimulator. PT/OT/ST. Echocardiogram demonstrates an EF of 60%, stage I diastolic dysfunction. If repeat brain CT unremarkable and patient symptoms improved with holding sedating regimen, likely no need for SOC neurology consult. 2. History of necrotizing fasciitis with ongoing left lower extremity wound-wound RN consulted. Continue outpatient follow-up. Appears stable, no evidence of infection. 3. Chronic asthma-as needed albuterol aerosol. 4. Chronic anemia-appears reduced from baseline. Check iron studies/B12/folate. Trend CBC. 5. Hypertension-HCTZ/ARB on hold. Resume if repeat CT negative. 6. Depression-on buspirone, citalopram. 7. Reflex sympathetic dystrophy-hold sedating regimen. 8. Fibromyalgia/restless leg syndrome-on amitriptyline, gabapentin which are held for now. Continue Mirapex. 9. Super morbid obesity-BMI 50.9. Encouraged diet and lifestyle modifications. 10. FAY-on BiPAP. DVT prophylaxis- SCDs This patient was seen by GINO Coyne under the supervision of Dr. Zhong. Time spent examining patient, reviewing data and subsequent management of care: 15 minutes Documented by User: Dr. Keanu Zhong, 03/08/22 14:27 Subjective Subjective Still with slurred speech. Feels that this is similar to when she had adverse reaction with gabapentin in the past. At that time she was taken around 4000 mg of gabapentin a day. Objective Data Lab / Micro Data Result Diagrams: 03/08/22 05:26 03/08/22 05:26 Physical Exam Const alert Constitutional Narrative: Groggy. Slurred speech. HEENT head/scalp atraumatic Head and Scalp: normocephalic Resp normal respiratory effort, no retractions, no use of accessory muscles and clear to auscultation bilaterally Cardio regular rate, regular rhythm, S1 normal heart sound and S2 normal heart sound GI normal to inspection, nondistended, normoactive bowel sounds, soft to palpation, non-tender and non-distended Extremity normal to inspection Extremity Narrative: Right lower extremity stump clean and intact. Neuro Sensorium / Orientation: awake and alert Motor Exam: strength 5/5 throughout Assessment & Plan Assessment/Plan (1) Slurred speech: PLAN: Patient seen and examined independently. Data and vitals reviewed. I agree with the above note by the nurse practitioner. 1. Slurred speech: Concern is for toxic cephalopathy due to medications versus stroke. Patient self reports that she had a history similar to this when she had too much gabapentin. The dose at that time was around 4000 mg/day. Hold gabapentin, Mirapex and Flexeril. Patient's has devices that are incompatible with an MRI so patient have a repeat head CT. 2. History of necrotizing fasciitis: Wound care images reviewed and appears to be healing. 25 minutes spent reviewing data, documentation and discussing with the patient. Charges/Coding Visit Charges Inpatient E&M: 28739 [facility] Hosp L3
[2022-03-08 13:13] LABS: Hemoglobin A1c 5.8 % (3.8-5.6)
--- NOTE | 2022-03-08 14:17 | CASEMGMT ---
This RONAL AVILES to room with COHEN form, explanation done-pt voices understanding, and signs COHEN form. Original to chart and copy to pt. Pt voices no further questions/concerns/needs. Pt states is active with [facility] for SN only, wound care/dressing changes and call to [facility] to notify of pt observation, voice understanding. Pt states did well with therapy today and states no need for any further therapy at discharge. Pt to have repeat CT scan at [address] Zhong, will be kept overnight. Pt unable to have MRI d/t implanted stimulators. [place] RONAL AVILES
[2022-03-08 14:19] LABS: Vitamin B12 563 pg/mL (211-911)
[2022-03-08 14:29] LABS: Iron 21 ug/dL (50-170); Iron Binding Capacity,Total 312 ug/dL (250-450); PERCENT IRON SATURATION 6.7 % (15.0-55.0)
--- NOTE | 2022-03-08 16:00 | CT_ITS ---
STUDY: CT BRAIN WITHOUT CONTRAST REASON FOR EXAM: Female, 61 years old. speech changes -- repeat CT, unable to have MRI TECHNIQUE: Transaxial CT imaging of the brain was performed without administration of intravenous contrast material. Individualized dose optimization techniques were used for this CT. COMPARISON: Mar 07 2022 4:55pm FINDINGS: Normal calvarium. Normal soft tissues. Normal size ventricles and extra-axial spaces for the patient''s age. Normal white matter tracts of the cerebral hemispheres. Normal basal ganglia and thalami. Normal brainstem. Normal cerebellum. There is no intracranial hemorrhage. There are no findings of an acute ischemic infarction. Normal visualized paranasal sinuses. ASPECTS 10 CT/Brain/Head without Contrast IMPRESSION: There are no acute intracranial findings. Electronically Signed: Amaury Hooks MD at 16:12 EDT ,
[2022-03-08] MEDS: Ferrous Sulfate 325 MG Tablet PO (16:57)
[2022-03-08] MEDS: Ondansetron 4 MG/2 ML Vial IV (17:01)
[2022-03-08] MEDS: Atorvastatin Calcium 80 MG Tablet PO (20:53)
[2022-03-08] MEDS: guaiFENesin 10 ML UDC (200MG/10ML) PO (21:40)
[2022-03-09] VITALS (7 sets, daily range): BP systolic 113–145; BP diastolic 68–86; PULSE 82–98; RESP 16–18; TEMP 36.4–36.8; O2SAT 92–95; BMI 50.8
[2022-03-09] MEDS: oxyCODONE 5 MG Tablet 10 MG PO (04:38)
[2022-03-09] MEDS: guaiFENesin 10 ML UDC (200MG/10ML) PO ×2 (05:33→13:03)
[2022-03-09 06:20] LABS: Absolute Lymphocyte Count 1.38 X10^3/uL (0.83-4.51); Absolute Neutrophil Count 2.5 X10^3/uL (2.0-7.7); Basophil# 0.04 X10^3/uL; Basophil% 0.8 % (0-1); Eosinophil# 0.25 X10^3/uL; Eosinophils% 5.1 % (0-5); Hematocrit 28.5 % (37-47); Hemoglobin 8.4 g/dL (12.0-15.0); Lymphocyte # 1.38 X10^3/ul (0.83-4.51); Lymphocyte % 28.4 % (19-41); Mean Corp Hgb Conc 29.5 g/dL (32-36); Mean Corpuscular Hgb 24.4 pg (27.0-32.0); Mean Corpuscular Volume 82.8 fL (81-99); Mean Platelet Vol. 9.8 fl (6.2-12.0); Monocyte# 0.63 X10^3/uL; NRBC Flagged by Analyzer 0 % (0-5); Neutrophil # 2.52 X10^3/uL (2.7-7.7); Neutrophil % 51.9 % (47-70); Platelet Count 445 K/mm3 (150-450); RBC Distribution Width CV 15.9 % (11.6-14.6); RBC Distribution Width SD 48.6 fl (35.1-43.9); Red Blood Count 3.44 M/mm3 (4.2-5.4); White Blood Count 4.9 K/mm3 (4.4-11.0)
[2022-03-09 06:46] LABS: Anion Gap 3 (5-15); BUN 9 mg/dL (7-18); BUN/Creat Ratio 14.4 RATIO (10-20); Chloride 105 mmol/L (98-107); Creatinine, Serum 0.62 mg/dL (0.55-1.02); EST Glomerular Filtration Rate 103 mL/min (>60); Est Glom Filt Rate - Afr Amer 125 mL/min (>60); Estimated Creatinine Clearance 91.49 ml/min; Glucose 113 mg/dL (74-106); Potassium 4.2 mmol/L (3.5-5.1); Sodium Level 137 mmol/L (136-145)
[2022-03-09] MEDS: Albuterol 2.5 MG/3 ML VIAL.NEB. INHALATION (07:09)
--- NOTE | 2022-03-09 07:52 | PN.HOSP_ITS ---
Subjective Subjective Feels good. Speech is back to normal. Objective Data Objective Data Vital Signs: Vital Signs Temp Pulse Resp BP Pulse Ox 36.4 C L 98 16 145/86 H 95 03/09/22 04:30 03/09/22 07:00 03/09/22 04:30 03/09/22 04:30 03/09/22 04:30 Oxygen Delivery Method Room Air Weight: 147.4 kg Body Mass Index (BMI) 50.8 Intake & Output: Intake and Output for Last 24 Hours 03/07/22 03/08/22 03/09/22 23:59 23:59 23:59 Intake Total 2140 / 2140 240 / 240 Output Total 500 / 500 600 / 600 1000 / 1000 Balance -500 / -500 1540 / 1540 -760 / -760 Lab / Micro Data Result Diagrams: 03/09/22 05:53 03/09/22 05:53 Labs: Laboratory Results - last 24 hr 03/08/22 05:26: Hemoglobin A1c 5.8 H 03/08/22 13:20: Vitamin B12 563 03/08/22 13:20: Iron 21 L, TIBC 312, Iron Saturation 6.7 L, Folate 7.80 03/09/22 05:53: WBC 4.9, RBC 3.44 L, Hgb 8.4 L, Hct 28.5 L, MCV 82.8, MCH 24.4 L , MCHC 29.5 L, RDW Std Deviation 48.6 H, RDW Coeff of Naga 15.9 H, Plt Count 445, MPV 9.8, Immature Gran % (Auto) 0.800, Neut % (Auto) 51.9, Lymph % (Auto) 28.4, Bee % (Auto) 13.0 H, Eos % (Auto) 5.1 H, Baso % (Auto) 0.8, Absolute Neuts (auto) 2.5, Absolute Lymphs (auto) 1.38, Nucleated RBC % 0 03/09/22 05:53: Sodium 137, Potassium 4.2, Chloride 105, Carbon Dioxide 29.0, Anion Gap 3 L, BUN 9, Creatinine 0.62, Estim Creat Clear Calc 91.49, Est GFR (MDRD) Af Amer 125, Est GFR (MDRD) Non-Af 103, BUN/Creatinine Ratio 14.4, Glucose 113 H, Calcium 9.0 Radiography Diagnostic Testing: Radiology Impression Echocardiogram 03/08/22 05:55 Interpretation Summary Normal LV size. Left ventricular systolic function is normal. The estimated ejection fraction is 60 %. Stage 1 diastolic dysfunction. Contrast injection was performed. Ordering Physician: Mag Cantu Referring Physician: No PCP Noted Performed By: Alexandr Mazariegos RCS Brain CT 03/08/22 16:00 IMPRESSION: There are no acute intracranial findings. Electronically Signed: Amaury Hooks MD at 16:12 EDT , Physical Exam Const alert and no apparent distress Extremity normal to inspection Neuro Sensorium / Orientation: awake and alert Assessment & Plan Assessment/Plan (1) Encephalopathy acute: PLAN: 1. acute toxic encephalopathy * Resolved * head CTs negative * pt unable to have MRI due to implanted devices * concern for gabapentin toxicity, which has been held. * May resume Mirapex. Patient instructed to use cyclobenzaprine as needed.
[2022-03-09] MEDS: Aspirin 81 MG TAB.CHEW PO (08:08)
[2022-03-09] MEDS: Montelukast 10 MG Tablet PO (08:08)
[2022-03-09] MEDS: Ferrous Sulfate 325 MG Tablet PO ×2 (08:09→11:36)
[2022-03-09] MEDS: Citalopram 40 MG TABLET PO (08:09)
[2022-03-09] MEDS: Pantoprazole Sodium 40 MG Tablet PO (08:09)
[2022-03-09] MEDS: Potassium Chloride Oral Tablet 20 MEQ 40 MEQ PO (08:10)
[2022-03-09] MEDS: Senna/Docusate Sodium 1 Tablet 2 TABLET PO (11:35)
--- NOTE | 2022-03-09 13:19 | PCM.DC ---
Discharge Instructions Diet Discharge Diet: No restrictions Dressing / Incision Call your doctor if you observe: - (confusion) Follow Up Care Test Results: Test results from this visit will be discussed in further detail at your follow-up appointment, if applicable. Discharge Plan Admission Admit Date/Time: 03/07/22 18:00 Primary Reason for Your Visit: toxic encephalopathy secondary to gabapentin. Attending Provider: Keanu Zhong Primary Care Provider: Butch Maddox NP Consulting Providers: Mag Cantu Discharge Orders/Prescriptions Prescriptions: Continued albuterol sulfate 90 mcg/actuation HFA aerosol inhaler 2 puff inhalation Q6H PRN (Reason: shortness of breath or wheezing) Qty: 8.5 RF: 6 furosemide 40 MG tablet 40 mg PO BID PRN (Reason: fluid overload) RF: 0 citalopram 40 MG tablet 40 mg PO DAILY RF: 0 potassium chloride 20 MEQ tablet 40 meq PO DAILY RF: 0 oxycodone-acetaminophen 1 TABLET tablet 2 tab PO QHS PRN PRN (Reason: Pain) RF: 0 valsartan 320 mg tablet 320 mg PO DAILY RF: 0 amitriptyline 50 mg tablet 100 mg PO QHS RF: 0 omeprazole 40 mg capsule,delayed release(DR/EC) 40 mg PO DAILY RF: 0 hydrochlorothiazide 12.5 mg capsule 12.5 mg PO BID RF: 0 montelukast 10 mg tablet 10 mg PO DAILY RF: 0 pramipexole 1.5 mg tablet 3 mg PO QHS RF: 0 meloxicam 7.5 MG tablet 7.5 mg PO BID PRN (Reason: KNEE PAIN) Qty: 0 RF: 0 Changed cyclobenzaprine 10 MG tablet 10 mg PO QHS PRN (Reason: muscle spasm) Qty: 0 RF: 0 Discontinued gabapentin 600 MG tablet 600 mg PO BID RF: 0 Referrals / Follow Up: Elana Bradley MD [STAFF PHYSICIAN] - Within 2 Weeks Butch Maddox NP, APPLICATION PACKAGING CONSULTANT-C [Primary Care Provider] - Within 2 Weeks Disposition Disposition (needs filled in before D/C Order can be placed): Home, Self Care
--- NOTE | 2022-03-09 13:22 | DS.PCM_ITS ---
Providers Date of Admission: 03/07/22 Primary Care Physician: Butch Maddox, SOFTWARE ASSET MANAGER-C Consultations 03/07/22 19:16 Consult: Onc/Wound/network security analyst Routine Comment: Hx necrotizing fasciitis; wound left LE Reason For Visit: SLURRED SPEECH Diagnosis Discharge Diagnosis (1) Encephalopathy acute: Status: Acute Code(s): G93.40 - Encephalopathy, unspecified Medications at Discharge Home Medications furosemide 40 mg PO BID PRN 06/13/17 citalopram 40 mg PO DAILY 08/25/18 potassium chloride 40 meq PO DAILY 11/01/18 oxycodone-acetaminophen 2 tab PO QHS PRN PRN 09/20/19 albuterol sulfate 90 mcg/actuation aerosol inhaler 2 puff INHALATION Q6H PRN #8.5 g 05/11/21 amitriptyline 100 mg PO QHS 05/19/21 valsartan 320 mg PO DAILY 05/19/21 hydrochlorothiazide 12.5 mg PO BID 06/15/21 montelukast 10 mg PO DAILY 06/15/21 omeprazole 40 mg PO DAILY 06/15/21 pramipexole 3 mg PO QHS 06/15/21 meloxicam 7.5 mg PO BID PRN #0 tab 10/03/21 cyclobenzaprine 10 mg PO QHS PRN #0 tab 03/09/22 Hospital Course Operations None Procedures 2-D Echocardiogram Summary of Care Provided Minutes Spent on Discharge: 28 Hospital Course: 1. acute toxic encephalopathy Resolved head CTs negative pt unable to have MRI due to implanted devices concern for gabapentin toxicity, which has been held. May resume Mirapex. Patient instructed to use cyclobenzaprine as needed. Weight / BMI Weight Weight: 147.4 kg Body Mass Index (BMI) 50.8 ABG / Lab / Microbiology Data Result Diagrams: 03/09/22 05:53 03/09/22 05:53 Laboratory: Laboratory Results - last 24 hr 03/08/22 13:20: Vitamin B12 563 03/08/22 13:20: Iron 21 L, TIBC 312, Iron Saturation 6.7 L, Folate 7.80 03/09/22 05:53: WBC 4.9, RBC 3.44 L, Hgb 8.4 L, Hct 28.5 L, MCV 82.8, MCH 24.4 L , MCHC 29.5 L, RDW Std Deviation 48.6 H, RDW Coeff of Naga 15.9 H, Plt Count 445, MPV 9.8, Immature Gran % (Auto) 0.800, Neut % (Auto) 51.9, Lymph % (Auto) 28.4, Kings % (Auto) 13.0 H, Eos % (Auto) 5.1 H, Baso % (Auto) 0.8, Absolute Neuts (auto) 2.5, Absolute Lymphs (auto) 1.38, Nucleated RBC % 0 03/09/22 05:53: Sodium 137, Potassium 4.2, Chloride 105, Carbon Dioxide 29.0, Anion Gap 3 L, BUN 9, Creatinine 0.62, Estim Creat Clear Calc 91.49, Est GFR (MDRD) Af Amer 125, Est GFR (MDRD) Non-Af 103, BUN/Creatinine Ratio 14.4, Glu cose 113 H, Calcium 9.0 Radiography Diagnostic Testing: Radiology Impression Brain CT 03/08/22 16:00 IMPRESSION: There are no acute intracranial findings. Electronically Signed: Amaury Hooks MD at 16:12 EDT Reading Location ID and State: [facility] / [place] , Service support , D/C Instructions Discharge Diet: No restrictions Call your doctor if you observe: - (confusion) Meaningful Use Info Meaningful Use Diagnoses (Choose all that apply): None applicable Discharge Plan Admission Admit Date/Time: 03/07/22 18:00 Primary Reason for Your Visit: toxic encephalopathy secondary to gabapentin. Attending Provider: Keanu Zhong Primary Care Provider: Butch Maddox SOFTWARE ASSET MANAGER Consulting Providers: Mag Cantu Discharge Orders/Prescriptions Prescriptions: Continued albuterol sulfate 90 mcg/actuation HFA aerosol inhaler 2 puff inhalation Q6H PRN (Reason: shortness of breath or wheezing) Qty: 8.5 RF: 6 furosemide 40 MG tablet 40 mg PO BID PRN (Reason: fluid overload) RF: 0 citalopram 40 MG tablet 40 mg PO DAILY RF: 0 potassium chloride 20 MEQ tablet 40 meq PO DAILY RF: 0 oxycodone-acetaminophen 1 TABLET tablet 2 tab PO QHS PRN PRN (Reason: Pain) RF: 0 valsartan 320 mg tablet 320 mg PO DAILY RF: 0 amitriptyline 50 mg tablet 100 mg PO QHS RF: 0 omeprazole 40 mg capsule,delayed release(DR/EC) 40 mg PO DAILY RF: 0 hydrochlorothiazide 12.5 mg capsule 12.5 mg PO BID RF: 0 montelukast 10 mg tablet 10 mg PO DAILY RF: 0 pramipexole 1.5 mg tablet 3 mg PO QHS RF: 0 meloxicam 7.5 MG tablet 7.5 mg PO BID PRN (Reason: KNEE PAIN) Qty: 0 RF: 0 Changed cyclobenzaprine 10 MG tablet 10 mg PO QHS PRN (Reason: muscle spasm) Qty: 0 RF: 0 Discontinued gabapentin 600 MG tablet 600 mg PO BID RF: 0 Referrals / Follow Up: Elana Bradley MD [STAFF PHYSICIAN] - Within 2 Weeks Butch Maddox NP, SOFTWARE ASSET MANAGER-C [Primary Care Provider] - Within 2 Weeks Disposition Disposition (needs filled in before D/C Order can be placed): Home, Self Care Charges/Coding Visit Charges OBSV E&M: 73020 Observation care discharge
--- NOTE | 2022-03-09 14:27 | CASEMGMT ---
Speech is recommending OP speech at discharge. Pt provided order for OP speech to [employer], voices understanding and order faxed to [facility]. Pt voices no further questions/concerns/needs at discharge. SStjanette VILLEDA CM
--- NOTE | 2022-03-09 14:59 | CASEMGMT ---
Addendum entered by Brigette Villafana 03/09/22 15:16: Call to [facility] to notify that pt discharged today, voice understanding. Terry VILLEDA CM Original Note: Speech is recommending further speech therapy at discharge and pt is active with [facility] but declines speech being added to order at this time. Pt states 'I really don't know why I would need it.' Pt was given a script for OP speech for future reference if she changes her mind. Pt voices no further questions/concerns/needs for discharge. Terry VILLEDA CM
== END 2022-03-09 13:22 | disposition home or self-care (01) ==
LOC: ED 17:41 → PCU 18:11
PROVIDERS: Nurse Practitioner Family; Admitting Provider Student in an Organized Health Care Education/Training Program; Emergency Provider Emergency Medicine; PCP Nurse Practitioner Family
DX: G92.9 Unspecified toxic encephalopathy (principal); M06.9 Rheumatoid arthritis, unspecified; M72.6 Necrotizing fasciitis; E66.01 Morbid (severe) obesity due to excess calories; Z68.43 Body mass index [BMI] 50.0-59.9, adult; R47.81 Slurred speech; R47.01 Aphasia; D64.9 Anemia, unspecified; R53.1 Weakness; F41.9 Anxiety disorder, unspecified; K21.9 Gastro-esophageal reflux disease without esophagitis; I10 Essential (primary) hypertension; G47.33 Obstructive sleep apnea (adult) (pediatric); F32.A Depression, unspecified; J45.909 Unspecified asthma, uncomplicated; M79.7 Fibromyalgia; Z87.891 Personal history of nicotine dependence; Z79.899 Other long term (current) drug therapy; G90.50 Complex regional pain syndrome I, unspecified; G25.81 Restless legs syndrome
CPT/HCPCS: 36415; 70450; 70496; 70498; 71045; 80048; 80061; 82607; 82728; 82746; 82962; 83036; 83540; 83550; 84484; 85025; 85610; 85730; 92522; 92610; 93005; 93306; 94640; 94762; 96361; 96374; 97162; 97166; 97802; 99218; 99285; J7030; Q9957; Q9967; A4216; C8929; G0378; J2405

== ENCOUNTER 2022-08-31 11:26 | Inpatient (IN) | payer MEDICARE, MEDICAID, SELFPAY ==
[2022-08-31] VITALS (20 sets, daily range): BP systolic 103–179; BP diastolic 66–94; PULSE 85–110; RESP 12–44; TEMP 37.1–39.3; O2SAT 88–100; BMI 56.2; BMI 53.9
--- NOTE | 2022-08-31 12:16 | EKG12_ITS ---
Test Reason : CP Blood Pressure : / mmHG Vent. Rate : 092 BPM Atrial Rate : 092 BPM P-R Int : 156 ms QRS Dur : 078 ms QT Int : 338 ms P-R-T Axes : 053 -05 081 degrees QTc Int : 417 ms Normal sinus rhythm Confirmed by ELDER BORDEN, LOUIS ([id number]), newspaper or periodical editor LUZ MARINA GREY ([id number]) on 09/06/2022 9:06:07 AM Referred By: Confirmed By:LOUIS FRIEDMAN MD
[2022-08-31] MEDS: Ondansetron 4 MG/2 ML Vial IV ×2 (12:59→15:39)
[2022-08-31] MEDS: Morphine 4 MG/ML Syringe IV ×2 (12:59→15:39)
--- NOTE | 2022-08-31 13:06 | RAD_ITS ---
STUDY: X-RAY CHEST REASON FOR EXAM: Female, 62 years old. Dyspnea, dyspnea on exertion, edema and hypoxia TECHNIQUE: AP and lateral views of the chest. COMPARISON: Comparison is made with prior study 03/07/2022 FINDINGS: EKG electrodes are seen. The lungs are clear and expanded. There is no demonstrated pleural abnormality. Normal size heart. Normal mediastinum and jimmy. Normal visualized pulmonary arteries. There is atherosclerotic tortuosity of the aortic arch and descending thoracic aorta. There are diffuse degenerative changes of the visualized thoracic spine. Electrodes from a pain stimulator device is seen. Normal visualized ribs, clavicles, and shoulders. There is no demonstrated abnormality of the visualized soft tissue structures of the upper abdomen. RAD/Chest PA and Lateral IMPRESSION: No acute abnormality is seen. Electronically Signed: Sean Cotton MD at 13:38 EST ,
[2022-08-31 13:37] LABS: Absolute Lymphocyte Count 1.26 X10^3/uL (0.83-4.51); Absolute Neutrophil Count 14.8 X10^3/uL (2.0-7.7); Basophil# 0.07 X10^3/uL; Basophil% 0.4 % (0-1); Eosinophil# 0.06 X10^3/uL; Eosinophils% 0.3 % (0-5); Hemoglobin 11.4 g/dL (12.0-15.0); Lymphocyte # 1.26 X10^3/ul (0.83-4.51); Lymphocyte % 7.2 % (19-41); Mean Corp Hgb Conc 29.2 g/dL (32-36); Mean Corpuscular Hgb 22.2 pg (27.0-32.0); Mean Corpuscular Volume 75.9 fL (81-99); Monocyte# 1.19 X10^3/uL; Monocyte% 6.8 % (0-10); NRBC Flagged by Analyzer 0 % (0-5); Neutrophil # 14.84 X10^3/uL (2.7-7.7); Neutrophil % 84.7 % (47-70); POSITIVE MORPHOLOGY YES; Platelet Count 328 K/mm3 (150-450); RBC Distribution Width SD 57.9 fl (35.1-43.9); Red Blood Count 5.14 M/mm3 (4.2-5.4); White Blood Count 17.5 K/mm3 (4.4-11.0)
[2022-08-31 13:38] LABS: Differential Indicated SCAN CRITERIA MET
[2022-08-31 13:48] LABS: D-Dimer Quantitative (DVT/PE) 0.74 FEU/ug/m (0.27-0.49)
[2022-08-31 13:53] LABS: Anion Gap 8 (5-15); BUN 22 mg/dL (7-18); BUN/Creat Ratio 23.1 RATIO (10-20); Calcium,Total 9.1 mg/dL (8.5-10.1); Chloride 101 mmol/L (98-107); Creatinine, Serum 0.95 mg/dL (0.55-1.02); EST Glomerular Filtration Rate 63 mL/min (>60); Est Glom Filt Rate - Afr Amer 76 mL/min (>60); Estimated Creatinine Clearance 56.74 ml/min; Glucose 88 mg/dL (74-106); Potassium 3.7 mmol/L (3.5-5.1); Sodium Level 139 mmol/L (136-145); Troponin-I HS 13 pg/mL (3.0-54.0)
--- NOTE | 2022-08-31 13:56 | CT_ITS ---
STUDY: CTA CHEST REASON FOR EXAM: Female, 62 years old. Dyspnea, pleuritic pain, elevated D-dimer RADIATION DOSAGE (If Supplied By Facility): CTDIvol = ( 28.20 ) mGy, DLP = ( 778.08 ) mGycm TECHNIQUE: The examination was performed with the intravenous administration of 100mL Isovue 370. Post-processing of the angiographic images was performed, with multiplanar reformation and 3D reconstruction. Individualized dose optimization techniques were used for this CT. COMPARISON: Comparison is made with prior study dated 09/30/2021 and prior chest radiograph done earlier in the day. FINDINGS: Limited study due to the limited contrast enhancement. I suspect pulmonary emboli in branches of both lower lobe pulmonary artery branches. There is atherosclerotic calcification of the aortic arch with tortuosity. There is no demonstrated aortic dissection. Normal heart and pericardium. Normal mediastinum. Normal hilar regions. Normal visualized trachea and bronchi. The lungs are well expanded. Normal pulmonary parenchyma. Normal pleura. Normal chest wall structures. There are degenerative changes of thoracic spine. Diffuse fatty infiltration of the liver. CT/CTA Chest W/WO Contrast IMPRESSION: I suspect emboli involving branches of both right and left lower lobes. Electronically Signed: Sean Cotton MD at 15:49 EST ,
[2022-08-31 14:00] LABS: Anisocytosis 1+
--- NOTE | 2022-08-31 15:30 | EDS_ITS ---
HPI History of Present Illness Chief Complaint: Chest Pain Detail of Chief Complaint: Shortness of breath and a smothering sensation because she cannot breathe. Informant: patient Onset/Context/Timing Onset: Weeks Context: gradual Timing: Continuous and Waxes and wanes Quality: Positive for Dyspnea on exertion and Orthopnea Current Severity: Mild Maximum Severity: Severe Worsened by: Exertion and Lying flat Relieved by: Nothing Associated Symptoms cough; Negative for rhinorrhea, post nasal drip, ear pain, fever, sore throat, subjective, chills, sweats, clear sputum, white sputum, yellow sputum or green sputum Chest Pain: Positive for Continuous and Pressure Narrative Narrative: Patient is a 62-year-old morbidly obese woman who presents with shortness of breath for the past several weeks that has gotten worse over the past several days. She reports orthopnea dyspnea on exertion. She states she cannot walk more than 5 to 10 feet without gasping for breath. She denies history of PE or DVT. She has been less mobile. She had increased swelling. She was seen by her primary care physician and placed on furosemide for fluid overload. Patient denies black or maroon-colored stool patient. Patient denies blood in her stool. Patient denies fever, chills night sweats. Patient reports weight gain. Patient reports unable to lace her shoes because of swelling. Patient denies headache, visual, ocular auditory symptoms. Patient denies nausea, vomiting. Patient denies urologic symptoms. PE Risk Factors: Positive for Recent immobilization and Recent travel; Negative for Cancer, OCP + Smoking + > 35, Prior DVT or PE or Recent surgery Prior similar symptoms: No Recent Illness/Hospitalization: No PFSH PFSH Medical History Anemia Anxiety Anxiety and depression Asthma Asthma exacerbation Below knee amputation Benign essential HTN BiPAP (biphasic positive airway pressure) dependence Bronchospasm Depression Failure of outpatient treatment Family history of diabetes mellitus (DM) Fibromyalgia Former smoker GERD (gastroesophageal reflux disease) Hypertension Morbid obesity Necrotizing fasciitis Obstructive sleep apnea Reflex sympathetic dystrophy Restless leg syndrome Rheumatoid arthritis Sleep apnea Home Medications furosemide 40 mg tablet 40 mg PO BID PRN fluid overload 06/13/17 [History Last T aken 08/31/22] citalopram 40 mg tablet 40 mg PO DAILY depression 08/25/18 [History Last Taken 08/31/22] potassium chloride 20 mEq tablet,extended release(part/cryst) 40 meq PO DAILY supplement 11/01/18 [History Last Taken 08/31/22] oxycodone-acetaminophen 5 mg-325 mg tablet 2 tab PO QHS PRN PRN Pain 09/20/19 [History Last Taken 1 Week Ago ~06/08/21] albuterol sulfate 90 mcg/actuation aerosol inhaler 2 puff inhalation Q6H PRN shortness of breath or wheezing #8.5 grams 05/11/21 [Rx Last Taken 08/24/22] valsartan 320 mg tablet 320 mg PO DAILY heart 05/19/21 [History Last Taken 08/31/22] omeprazole 40 mg capsule,delayed release 40 mg PO DAILY gerd 06/15/21 [History Last Taken 08/31/22] pramipexole 1.5 mg tablet 3 mg PO QHS rls 06/15/21 [History Last Taken 08/30/22] meloxicam 7.5 mg tablet 7.5 mg PO BID PRN KNEE PAIN #0 tabs 10/03/21 [Rx Last Taken 08/31/22] cyclobenzaprine 10 mg tablet 10 mg PO QHS PRN muscle spasm #0 tabs 03/09/22 [Rx Last Taken 08/31/22] amitriptyline 100 mg tablet 100 mg PO DAILY PAIN AND SLEEP 08/31/22 [History Last Taken 08/30/22] cholecalciferol (vitamin D3) 1,250 mcg (50,000 unit) capsule 1,250 mcg PO MO SUPPLEMENT 08/31/22 [History Last Taken 08/28/22] famotidine 20 mg tablet 20 mg PO BID GERD 08/31/22 [History Last Taken 08/31/22] Allergy/AdvReac Type Severity Reaction Status Date / Time amlodipine AdvReac Swelling Verified 08/31/22 11:26 Family History Mother Hypertension Cancer Pancreatic Diabetes Father Cancer pancreatic Brother Diabetes Grandfather Diabetes Surgical History Chronic knee pain after total replacement of left knee joint H/O foot surgery History of hysterectomy History of tonsillectomy Hx of breast reduction, elective Social History (Updated 08/31/22 @ 15:[address] Mario Marcelo MD) household members: none Smoking Status: Never smoker substance use type: does not use ROS ROS ED Constitutional Constitutional ED: Denies chills, fever(s), sweats or weight loss Eyes Eyes: Denies blurry vision, change in vision or diplopia ENT ENT ED: Denies ear pain, rhinorrhea or sore throat Cardiovascular Cardiovascular: Reports chest pain and orthopnea; Denies palpitations, paroxysmal nocturnal dyspnea or racing heartbeat Respiratory/Chest Respiratory/Chest: Reports cough, dyspnea, dyspnea on exertion and orthopnea; Denies paroxysmal nocturnal dyspnea or sputum Gastrointestinal Gastrointestinal: Denies abdominal pain, constipation, diarrhea, melena, nausea or vomiting Genitourinary Genitourinary ED: Denies dysuria, hematuria or urinary frequency Musculoskeletal Musculoskeletal: Denies arthralgias, back pain, myalgias or neck pain Integumentary Denies Abrasions Neurologic Neurologic: Reports weakness; Denies headache(s) or paresthesias Psychiatric Psychiatric: Reports anxiety and depression Endocrine Endocrinology: Denies cold intolerance, heat intolerance, polydipsia or polyuria Hematologic/Lymphatic Hematologic/Lymphatic: Denies easy bleeding or easy bruising EXAM Physical Exam Const Vital Signs: 08/31/22 11:27 08/31/22 11:26 08/31/22 11:35 Temperature 98.7 F Temperature Source Oral Pulse Rate 88 Respiratory Rate 26 H Respiratory Effort Normal Non-Labored Blood Pressure 159/85 H Blood Pressure Mean 109 Pulse Ox 88 100 Oxygen Delivery Method Room Air Nasal Cannula Oxygen Flow Rate (L/min) 08/31/22 12:28 08/31/22 13:30 08/31/22 15:07 Temperature Temperature Source Pulse Rate 90 93 Respiratory Rate 27 H 32 H Respiratory Effort Blood Pressure 140/79 H 132/68 H Blood Pressure Mean 99 89 Pulse Ox 98 98 96 Oxygen Delivery Method Room Air Nasal Cannula Nasal Cannula Oxygen Flow Rate (L/min) 2 2 Positive well nourished, well developed and obese Constitutional Narrative: Patient is tearful. Patient is anxious. Patient was hypoxic with a pulse ox of 88% on room air. General Appearance ED: well developed; Negative for pallor Nutritional Appearance: obese HEENT Reports moist mucous membranes HEENT Narrative: Head is atraumatic normocephalic. Ears normal. Nares patent. Uvula midline. No erythema or exudate the posterior pharynx. No deviation tongue with protrusion. Eyes PERRL and EOMs intact bilaterally General Eye ED: Negative for pale conjunctiva or scleral icterus Neck no lymphadenopathy, supple, no meningeal signs and no JVD Resp No normal respiratory effort and No clear to auscultation bilaterally Auscultation: rales bilateral base Cardio regular rate, regular rhythm, S1 normal heart sound, S2 normal heart sound and no murmurs GI non-tender, non-distended and no masses Auscultation: hypoactive bowel sounds Palpation: soft Back/Spine no CVA tenderness Extremity normal to inspection General Extremety ED: Yes edema; Negative for tenderness General Extremity: edema Neuro oriented x3, CN's II-XII intact bilaterally and no sensory deficits noted [place] Coma Scale: document GCS findings Spontaneous Obeys Commands Oriented 15 Sensorium / Orientation: alert Psych Mood & Affect: depressed, anxious and tearful Skin skin turgor normal General Skin Exam: Negative for jaundice or pallor Rashes: no rashes MDM MDM MDM Narrative Medical decision making narrative: Patient presents with dyspnea. Concern for PE, CHF, cardiac ischemia. Patient has elevated white count and has no infectious respiratory symptoms. Work-up was undertaken. Since patient had elevated D-dimer with unremarkable chest x- ray CTA was obtained. CTA revealed no abnormality. With elevated white count and no explanation patient's dressing was removed from her right leg. She has cellulitis of the leg and foot. There is breakdown of the skin due to the tightness of the wrap. Patient has history of necrotizing fasciitis. There is no crepitus. There is no pain to palpation of her skin. She was treated with Zosyn and vancomycin. Hospitalist has been paged for admission. This would probably explain her dyspnea. Suspect her hypoxia is chronic and due to obstructive sleep apnea versus pickwickian syndrome. Lab Data Attestation: I reviewed the patient's lab results. Lab results narrative: Patient has elevated white count with shift. There is no bandemia. Mild anemia. D-dimer is elevated 0.74. Since chest x-ray revealed no acute patholog y and patient's main complaint is dyspnea will obtain CTA. Basic metabolic panel is unremarkable. Troponin with a week of symptoms is negative. Labs: Laboratory Results - last 24 hr 08/31/22 08/31/22 08/31/22 13:27 13:27 13:27 WBC 17.5 H RBC 5.14 Hgb 11.4 L Hct 39.0 MCV 75.9 L MCH 22.2 L MCHC 29.2 L RDW Std Deviation 57.9 H RDW Coeff of [place] 22.0 H Plt Count 328 MPV 10.0 Immature Gran % (Auto) 0.600 Neut % (Auto) 84.7 H Lymph % (Auto) 7.2 L [place] % (Auto) 6.8 Eos % (Auto) 0.3 Baso % (Auto) 0.4 Absolute Neuts (auto) 14.8 H Absolute Lymphs (auto) 1.26 Nucleated RBC % 0 Anisocytosis 1+ D-Dimer Quant (PE/DVT) 0.74 H* Sodium 139 Potassium 3.7 Chloride 101 Carbon Dioxide 30.0 Anion Gap 8 BUN 22 H Creatinine 0.95 Estim Creat Clear Calc 56.74 Est GFR (MDRD) Af Amer 76 Est GFR (MDRD) Non-Af 63 BUN/Creatinine Ratio 23.1 H Glucose 88 Calcium 9.1 Troponin I High Sens 13 Radiography Chest X-Ray - ED: 2 View and Read by ED Physician (Independent reviewed interpreted by me at 1332 as negative for any acute pathology. Difficult to read because of body habitus. There is no obvious effusion. There is no evidence of cephalization. Cardiac silhouette and size are unremarkable. [place] structures are unremarkable.) Diagnostic Testing: Clinical Impression(s) from Imaging Studies Chest X-Ray 08/31/22 13:06 IMPRESSION: No acute abnormality is seen. Electronically Signed: Sean Cotton MD at 13:38 EST , Chest CTA 08/31/22 13:56 IMPRESSION: I suspect emboli involving branches of both right and left lower lobes. Electronically Signed: Sean Cotton MD at 15:49 EST , EKG Initial EKG: Attestation: I personally reviewed and interpreted this EKG as follows: Interpretation: Sinus Rhythm (Sinus rhythm rate of 92. There is decreased anterior force. MT interval is under 56 ms. QS duration 78 ms. QT duration 3 and 38 ms. Gerald is normal. There is no acute ischemic changes noted.) Critical Care Time Critical Care Time: Yes Critical care time (excluding procedures): 30-74 minutes (33), Including time spent: (History, physical, documentation, review of laboratory studies and initiation of therapy), Discussing w/Patient &/or Family/Short Piece Handler, Discussing w/Consultants and Arranging Admission or Transfer Discharge Plan Dx/Rx/DC Orders Clinical Impression: Bilateral pulmonary embolism, Hypoxia, NAIR (dyspnea on exertion), Tachypnea, Hypertension, Cellulitis of left lower extremity Disposition Disposition: Acute Care Hospital [facility]
--- NOTE | 2022-08-31 15:54 | PCM.HP.STD ---
HPI - General General Date of Admission: 08/31/22 Date of Service: 08/31/22 Chief Complaint: Dyspnea, orthopnea, edema. HPI Narrative The patient is a 62 y/o F w/ PMHx: Chronic anemia/Fe deficiency anemia, HTN, HLD, FAY on BIPAP, Asthma, GERD, Anxiety and Depression, Rheumatoid arthritis, RLS, Former tobacco use, Morbid obesity who presents to the [facility] ED on 08/31/22 with history of dyspnea noted to be waxing and waning to some degree but continuous, worse with exertion with associated orthopnea and severely worsened when she attempts to lay flat or does exert her self with cough although nonproductive and ongoing continuous chest pressure for the last several weeks but worsened over the last couple days reporting she can only walk 5 to 10 feet and by this point would be gasping for air prompting eventual ED evaluation. She does note that she was seen by her primary care physician and at that time she was placed on Lasix for fluid overload. Additionally of note patient with recent left lower extremity swelling with significant snug wrap placed and unfortunately this has not been taken down and cut into her skin with onset of wound with on day of ED presentation noted erythema around the wound which per discussion with patient and family present was not present the day prior. She had not had any specific fevers or chills but did become febrile eventually as noted in the ED. Work-up in the ED included T98.7, heart rate 88, BP initially 159/85 most recent repeat 132/68, respiratory rate 26, initially 88% on room air with improvement to 96% on 2 L nasal cannula--> T91.1, heart rate 99, BP 134/71, respiratory rate 25, 100% status post intubation, CBC with WC 17.5, hemoglobin 11.4, MCV 75.9, platelets 328 with left shift, D-dimer 0.74, BMP with BUN/creat 22/0.95 otherwise not marked appearing, troponin 13, chest x-ray with no acute cardiopulmonary finding, CTPA with bilateral suspected pulmonary emboli involving the branches of both right and left lower lobes, EKG with sinus rhythm with no acute evidence of ischemia. In the ED patient ministered aspirin 324 mg p.o. x1, morphine 4 mg IV x2, Zofran 4 mg IV x2, Vanco and Zosyn, heparin drip also initiated. Over the course of patient presentation while in the ED several events occurred including significant red man syndrome therefore antibiotic therapies were altered to clindamycin and continued Zosyn therapy. Patient eventually also became extremely encephalopathic with increased respiratory rate and evidence of distress with BiPAP initial attempt however given ongoing behavior and discussion with ED physician patient eventually intubated for airway safety. Patient with significant onset of fevers following this with plain film obtained to assure no concerning findings and per discussion with ED physician prelim read demonstrates soft tissue swelling but no gas or acute concerning findings. Patient initially was to be admitted to the PCU however given these ongoing events and transitions with eventual intubation patient admission transitioned to the ICU. [facility] Medical History Anemia Anxiety Anxiety and depression Asthma Asthma exacerbation Below knee amputation Benign essential HTN BiPAP (biphasic positive airway pressure) dependence Bronchospasm Depression Failure of outpatient treatment Family history of diabetes mellitus (DM) Fibromyalgia Former smoker GERD (gastroesophageal reflux disease) Hypertension Morbid obesity Necrotizing fasciitis Obstructive sleep apnea Reflex sympathetic dystrophy Restless leg syndrome Rheumatoid arthritis Sleep apnea Home Medications furosemide 40 mg tablet 40 mg PO BID PRN fluid overload 06/13/17 [History Last Taken 08/31/22] citalopram 40 mg tablet 40 mg PO DAILY depression 08/25/18 [History Last Taken 08/31/22] potassium chloride 20 mEq tablet,extended release(part/cryst) 40 meq PO DAILY supplement 11/01/18 [History Last Taken 08/31/22] oxycodone-acetaminophen 5 mg-325 mg tablet 2 tab PO QHS PRN PRN Pain 09/20/19 [History Last Taken 1 Week Ago ~06/08/21] albuterol sulfate 90 mcg/actuation aerosol inhaler 2 puff inhalation Q6H PRN shortness of breath or wheezing #8.5 grams 05/11/21 [Rx Last Taken 08/24/22] valsartan 320 mg tablet 320 mg PO DAILY heart 05/19/21 [History Last Taken 08/31/22] omeprazole 40 mg capsule,delayed release 40 mg PO DAILY gerd 06/15/21 [History Last Taken 08/31/22] pramipexole 1.5 mg tablet 3 mg PO QHS rls 06/15/21 [History Last Taken 08/30/22] meloxicam 7.5 mg tablet 7.5 mg PO BID PRN KNEE PAIN #0 tabs 10/03/21 [Rx Last Taken 08/31/22] cyclobenzaprine 10 mg tablet 10 mg PO QHS PRN muscle spasm #0 tabs 03/09/22 [Rx Last Taken 08/31/22] amitriptyline 100 mg tablet 100 mg PO DAILY PAIN AND SLEEP 08/31/22 [History Last Taken 08/30/22] cholecalciferol (vitamin D3) 1,250 mcg (50,000 unit) capsule 1,250 mcg PO MO SUPPLEMENT 08/31/22 [History Last Taken 08/28/22] famotidine 20 mg tablet 20 mg PO BID GERD 08/31/22 [History Last Taken 08/31/22] Allergy/AdvReac Type Severity Reaction Status Date / Time amlodipine AdvReac Swelling Verified 08/31/22 11:26 Family History Mother Hypertension Cancer Pancreatic Diabetes Father Cancer pancreatic Brother Diabetes Grandfather Diabetes Surgical History Chronic knee pain after total replacement of left knee joint H/O foot surgery History of hysterectomy History of tonsillectomy Hx of breast reduction, elective Social History (Updated 08/31/22 @ 20:[address] Phylicia Hurtado MD) household members: significant other Smoking Status: Former smoker alcohol intake: never substance use type: does not use ROS ROS Narrative Admission Review of Systems: CONSTITUTIONAL: No weight loss, fever, chills, + weakness or fatigue. HEENT: Eyes: No visual loss, blurred vision, double vision or yellow sclerae. Ears, Nose, Throat: No hearing loss, sneezing, congestion, runny nose or sore throat. SKIN: + LLE wound, periwound redness. CARDIOVASCULAR: No chest pain, chest pressure or chest discomfort, palpitations, edema, orthopnea, syncopal events. RESPIRATORY: No shortness of breath, cough or sputum, wheezing, hemoptysis. GASTROINTESTINAL: No anorexia, nausea, vomiting or diarrhea, abdominal pain, melena, BRBPR. GENITOURINARY: No dysuria, frequency, urgency or retention. NEUROLOGICAL: No headache, dizziness, syncope, paralysis, ataxia, numbness or tingling in the extremities, focal weakness, change in bowel or bladder control, seizure. MUSCULOSKELETAL: + muscle, back pain, joint pain or stiffness. HEMATOLOGIC: + anemia, bleeding or bruising. LYMPHATICS: No enlarged nodes. No history of splenectomy. PSYCHIATRIC: + history of depression or anxiety. ENDOCRINOLOGIC: No reports of sweating, cold or heat intolerance. No polyuria or polydipsia. ALLERGIES: No history of asthma, hives, eczema or rhinitis. Vital Signs Vital Signs Vital Signs: 08/31/22 11:27 08/31/22 11:26 08/31/22 11:35 Temperature 98.7 F Temperature Source Oral Pulse Rate 88 Respiratory Rate 26 H Respiratory Effort Normal Non-Labored Blood Pressure 159/85 H Blood Pressure Mean 109 Pulse Ox 88 100 Oxygen Delivery Method Room Air Nasal Cannula Oxygen Flow Rate (L/min) 08/31/22 12:28 08/31/22 13:30 08/31/22 15:07 Temperature Temperature Source Pulse Rate 90 93 Respiratory Rate 27 H 32 H Respiratory Effort Blood Pressure 140/79 H 132/68 H Blood Pressure Mean 99 89 Pulse Ox 98 98 96 Oxygen Delivery Method Room Air Nasal Cannula Nasal Cannula Oxygen Flow Rate (L/min) 2 2 Weight Weight: 358 lb 7.546 oz Body Mass Index (BMI) 56.2 Physical Exam Narrative Physical Examination: General: Initially awake, alert, oriented x 3 and cooperative, seated upright in the ED bed, fatigued, anxious. Skin: Normal color, normal turgor, no icterus, no cyanosis except LLE distal wound, no current drainage, periwound erythema, notably increased warmth to touch. HEENT: AT/NC, EOMI, PERRLA, mildly dry MM, no carotid bruits or JVD noted. Lungs: Diminished, > bases, distant, mlidly increased RR but no distress, no rales, ronchi or wheezing. Heart: Mildly tachycardic with regular rhythm; no gallop, rub audible. Abdomen: Soft, morbidly obese, NTTP, difficult assessment of distention secondary to habitus, distant normal BS, no obvious evidence of HSM; however, difficult exam secondary to habitus. Extremities: No cyanosis, no clubbing, s/p prior RLE distal amputation with prosthetic, see skin for LLE findings. Neurological: Patient awake, alert, oriented as noted, cognitive function initially intact; pupils equally reactive to light and accommodation, cranial nerves grossly normal, moving all 4 extremities, no focal deficits, strength moderately globally decreased. Psychiatric: Affect appears fatigued, anxious, no acute evidence of depressive feelings. Repeat evaluation prior to intubation: General: Confused, increased respiratory rate, evidence of distress, no answering orientation questions, febrile. Skin: Normal color, normal turgor, no icterus, no cyanosis except again LLE distal wound, no current drainage, periwound erythema, notably increased warmth to touch as well as receding significant diffuse erythema (red man syndrome). Lungs: Increased RR, accessory muscle usage, BIPAP placement initially requested and eventually transitioned to intubation. Heart: Tachycardic with regular rhythm. Results Lab / Micro Data Result Diagrams: 08/31/22 13:27 08/31/22 13:27 Labs: Laboratory Results - last 24 hr 08/31/22 13:27: WBC 17.5 H, RBC 5.14, Hgb 11.4 L, Hct 39.0, MCV 75.9 L, MCH 22.2 L, MCHC 29.2 L, RDW Std Deviation 57.9 H, RDW Coeff of [place] 22.0 H, Plt Count 328, MPV 10.0, Immature Gran % (Auto) 0.600, Neut % (Auto) 84.7 H, Lymph % (Auto) 7.2 L, [place] % (Auto) 6.8, Eos % (Auto) 0.3, Baso % (Auto) 0.4, Absolute Neuts (auto) 14.8 H, Absolute Lymphs (auto) 1.26, Nucleated RBC % 0, Anisocytosis 1+ 08/31/22 13:27: D-Dimer Quant (PE/DVT) 0.74 H* 08/31/22 13:27: Sodium 139, Potassium 3.7, Chloride 101, Carbon Dioxide 30.0, Anion Gap 8, BUN 22 H, Creatinine 0.95, Estim Creat Clear Calc 56.74, Est GFR (MDRD) Af Amer 76, Est GFR (MDRD) Non-Af 63, BUN/Creatinine Ratio 23.1 H, Glucose 88, Calcium 9.1, Troponin I High Sens 13 Radiology Impression Chest X-Ray 08/31/22 13:06 IMPRESSION: No acute abnormality is seen. Electronically Signed: Sean Cotton MD at 13:38 EST , Chest CTA 08/31/22 13:56 IMPRESSION: I suspect emboli involving branches of both right and left lower lobes. Electronically Signed: Sean Cotton MD at 15:49 EST , Assessment & Plan Assessment/Plan (1) Bilateral pulmonary embolism: (2) Cellulitis of left lower extremity: PLAN: Plan The patient is a 62 y/o F w/ PMHx: Chronic anemia/Fe deficiency anemia, HTN, HLD, FAY on BIPAP, Asthma, GERD, Anxiety and Depression, Rheumatoid arthritis, RLS, Former tobacco use, Morbid obesity who presents to the [facility] ED on 08/31/22 with history of dyspnea noted to be waxing and waning to some degree but continuous, worse with exertion with associated orthopnea and severely worsened when she attempts to lay flat or does exert her self with cough although nonproductive and ongoing continuous chest pressure for the last several weeks but worsened over the last couple days reporting she can only walk 5 to 10 feet and by this point would be gasping for air prompting eventual ED evaluation. #1. Acute Hypoxic Respiratory Failure complicated by onset Severe Encephalopathy (Infection secondary to #2) secondary to Acute Bilateral Pulmonary Embolism: EKG without acute findings, CXR no acute process, D-dimer elevated, CTPA with pulmonary embolism noted to be small and peripheral only. Given patient history of recent decreased activity secondary to left lower extremity injury/wound suspect likely reason for clot. Will obtain ECHO, BNP. Will continue therapeutic heparin drip pending discussions with case management for cost evaluation of oral options #2. Left lower extremity cellulitis secondary to recently developed wound with as noted acute severe encephalopathy: Will maintain on IV Zosyn and clindamycin as patient had significant red man syndrome to vancomycin even with attempted decrease of rate, if any onset of drainage although currently wound dry will obtain Wound Cx and MRSA PCR, plan repeat CBC in AM, continue affected extremity elevation above heart when seated and in bed, monitor erythema outline with VS checks. If Sanjiv wrap is placed to the left lower extremity will need be very cautious as does not again cut into her skin. #3. Chronic anemia/Fe deficiency anemia: Admission hemoglobin 11.4, MCV 75.9, patient had decreased to the 8 range in March but prior to this had been primarily 12, repeat level in AM. #4. Hypertension: Continue home regimen including valsartan, Lasix, PRN hydralazine. #5. Hyperlipidemia: Not on .statin therapy, defer to outpatient #6. Anxiety and depression: We will continue patient home escitalopram regimen and amitriptyline. #7. Morbid Obesity: Weight loss and lifestyle changes encouraged, nutrition consulted. #8. GERD: We will maintain on IV PPI given current presentation. #9. Rheumatoid arthritis: Patient on any chronic steroids but does use occasional pain medication, will resume as needed once appropriate given current intubated status. #10. FAY: Patient normally uses BiPAP outpatient, currently intubated and noted. #11. Restless leg syndrome: Temporarily holding Requip, add back once appropriate. #12. Former tobacco use: Encourage continued tobacco cessation. #13. DVT prophylaxis: SCDs, continue heparin drip as noted. #14. CODE STATUS: Full code. Charges/Coding Visit Charges Inpatient E&M: 19530 Init Hosp L3
[2022-08-31 16:27] LABS: Lactic Acid 1.8 mmol/L (0.4-1.9)
[2022-08-31 16:45] LABS: Prothrombin Time (Protime)PT. 12.8 SECONDS (11.7-14.9)
[2022-08-31 16:46] LABS: Partial Thromboplast Time 24.3 Seconds (24.1-36.2)
[2022-08-31 17:38] LABS: BNP,B-Type NATRIURETIC PEPTIDE 100.2 pg/mL (0-100)
--- NOTE | 2022-08-31 17:40 | RAD_ITS ---
STUDY: X-RAY CHEST REASON FOR EXAM: Female, 62 years old. Central line placement TECHNIQUE: Single AP portable view of the chest. COMPARISON: Earlier the same day FINDINGS: Central catheter on the right extends to the superior vena cava. There are monitoring devices. The lungs are clear and expanded. There is no demonstrated pleural abnormality. Normal size heart. Normal mediastinum and jimmy. Normal visualized pulmonary arteries. Normal visualized aortic arch and descending thoracic aorta. Stimulator wires extend to the mid thoracic spine. Normal visualized ribs, clavicles, and shoulders. There is no demonstrated abnormality of the visualized soft tissue structures of the upper abdomen. RAD/Chest 1 View (Portable) IMPRESSION: Central catheter placement. No pneumothorax. No focal infiltrate. Electronically Signed: August Randolph MD at 18:09 EST ,
[2022-08-31] MEDS: Heparin Injection (Vial) 5,000 UNIT/ML VIAL 13000 UNIT IV (17:50)
[2022-08-31] MEDS: HEPARIN/D5w 25,000 UNITS 25,000 UNITS/250 ML IV.SOLN. 20 UNITS CONT INF (17:52)
--- NOTE | 2022-08-31 18:26 | RAD_ITS ---
STUDY: X-RAY - LEFT FEMUR REASON FOR STUDY: Female, 62 years old. Pt. symptoms are red, swollen, has a laceration a bhagat. Pt his Fluid Overload, Knee pain after surgery. Cellulitis of left lower extremity, looking for free air TECHNIQUE: Frontal and lateral view(s) of the femur. COMPARISON: None. FINDINGS: Normal visualized femur. There is total knee replacement. There is no fracture seen. Normal visualized soft tissue structure. RAD/Femur Min 2 Views IMPRESSION: Knee replacement. No air seen in the soft tissues. Electronically Signed: August Randolph MD at 19:57 EST ,
--- NOTE | 2022-08-31 18:26 | RAD_ITS ---
STUDY: X-RAY - LEFT TIBIA AND FIBULA REASON FOR EXAM: Female, 62 years old. Pt. symptoms are red, swollen, has a laceration a bhagat. Pt his Fluid Overload, Knee pain after surgery. Cellulitis of left lower extremity, looking for free air. TECHNIQUE: Frontal and lateral view(s) of the tibia and fibula were obtained. COMPARISON: None. FINDINGS: There is total knee replacement. Alignment is stable and near-anatomic. There is stable fragmentation of the medial tibial plateau. Normal visualized fibula. There is soft tissue swelling. There are metallic surgical clips in the soft tissues. There is no air in the soft tissues. RAD/Tibia & Fibula 2 Views IMPRESSION: Soft tissue swelling. Postoperative change. Electronically Signed: August Randolph MD at 20:11 EST ,
--- NOTE | 2022-08-31 18:52 | RAD_ITS ---
STUDY: X-RAY CHEST REASON FOR EXAM: Female, 62 years old. Intubation TECHNIQUE: Single AP portable view of the chest. COMPARISON: Earlier the same day FINDINGS: Endotracheal tube, 3 cm above the dinesh. The stomach and the left upper quadrant. Central catheter (the superior vena cava. There are monitoring and support devices. There is left lower lung atelectasis. There is no demonstrated pleural abnormality. Normal size heart. Normal mediastinum and jimmy. Normal visualized pulmonary arteries. Normal visualized aortic arch and descending thoracic aorta. Stimulator wires extending to the mid thoracic spine. Normal visualized ribs, clavicles, and shoulders. There is no demonstrated abnormality of the visualized soft tissue structures of the upper abdomen. RAD/Chest 1 View (Portable) IMPRESSION: Endotracheal tube and feeding tube placement. Left lower lung atelectasis. Electronically Signed: August Randolph MD at 21:01 EST ,
[2022-08-31] MEDS: Rocuronium Bromide 50 MG/5 ML Vial 100 MG IV (18:59)
[2022-08-31] MEDS: Propofol 10MG/Ml 1,000 MG/100 ML Bottle 9.8 MG CONT INF (19:18)
[2022-08-31] MEDS: Etomidate 20 MG/10 ML Vial IV (19:20)
[2022-08-31] MEDS: Acetaminophen 650 MG Suppository RC (19:25)
[2022-08-31 19:35] LABS: Allen Test Positive; Base Excess 3 mmol/L (-2 to +2); Bicarbonate 29.9 mmol/L (22-26); Blood Gas Specimen Type ART; FI02 100; Mode AC; O2 Delivery Device Adult Vent; PEEP 5; PO2 149 mmHG (75-100); RR 14; SITE R Radial; SO2 99 % (95-99); Total Carbon Dioxide 32 mmol/L; Vt 450; pCO2 62.5 mmHg (35-45); pH 7.29 (7.35-7.45)
--- NOTE | 2022-08-31 19:45 | RAD_ITS ---
STUDY: X-RAY - ABDOMEN/PELVIS REASON FOR EXAM: Female, 62 years old. NG placement -- TECHNIQUE: Single AP view of the abdomen / pelvis. COMPARISON: None. FINDINGS: Feeding tube extends to the stomach in the left upper quadrant. Stimulator wires extending to the thoracic spine. There is degenerative change of the spine. There is an unremarkable bowel gas pattern. RAD/Abdomen Single View IMPRESSION: Feeding tube extends to the stomach. Electronically Signed: August Randolph MD at 21:05 EST ,
[2022-08-31] MEDS: Propofol 200 MG/20 ML Vial 50 MG IV BOLUS (19:58)
[2022-08-31] MEDS: fentaNYL 100 MCG/2 ML Ampul 50 MCG IV (20:10)
--- NOTE | 2022-08-31 20:16 | ECHOCS_ITS ---
Reason For Study: EMBOLI Procedure This was a 2D Doppler, Color Flow transthoracic echocardiogram. The study was technically difficult. Contrast injection was performed. Exam performed portable in ICU/CCU. Left Ventricle Normal size and thickness. The left ventricular ejection fraction is 60 %. Normal diastololic function. Right Ventricle Normal right ventricle. Atria Normal left atrium. Normal right atrium. Mitral Valve Mitral valve not well visualized. Tricuspid Valve The tricuspid valve is not well visualized. Trivial tricuspid valve insufficiency. Normal pulmonary artery pressure. Aortic Valve Normal aortic valve. Pulmonic Valve The pulmonic valve is not well visualized. Great Vessels Normal sized aortic root. Pericardium/Pleural No pericardial effusion. Medication Diluted definity 1ml given slow IV push to enhance endocardial definition. MMode/2D Measurements & Calculations Ao root diam: 3.3 cm LA dimension(2D): 4.3 cm Time Measurements MV dec time: 0.12 sec Doppler Measurements & Calculations MV E max alberto: 70.4 cm/sec Lat Peak E' Alberto: 12.2 cm/sec Med Peak E' Alberto: 11.7 cm/sec MV A max alberto: 58.4 cm/sec E/E' lat: 5.8 E/E' med: 6.0 MV E/A: 1.2 MV V2 max: 88.9 cm/sec Ao V2 max: 113.6 cm/sec MV max P.3 mmHg MV dec slope: 979.4 cm/sec2 Ao max P.3 mmHg MV V2 mean: 45.6 cm/sec Ao V2 mean: 81.6 cm/sec MV mean P.1 mmHg Ao mean P.1 mmHg MV V2 VTI: 19.9 cm Ao V2 VTI: 22.5 cm AV (velocity ratio): 0.78 LV V1 max: 88.8 cm/sec PA V2 max: 155.1 cm/sec TR max alberto: 240.9 cm/sec LV V1 max P.2 mmHg PA V2 mean: 105.3 cm/sec TR max P.2 mmHg LV V1 mean P.9 mmHg LV V1 mean: 65.2 cm/sec LV V1 VTI: 17.6 cm ECHO/Echo Complete W/ Contrast Interpretation Summary The left ventricular ejection fraction is 60 %. The study was technically difficult. Ordering Physician: Phylicia Hurtado Referring Physician: OJ HENDRICKSON Performed By: Connie Martínez RCS
--- NOTE | 2022-08-31 20:16 | CM.ED ---
SW Note SW noted that visitor in the hallway looked upset. SW introduced self and role. Visitor identified herself as daughter. Emotional support provided. SW remains available if needs arise. Plan: Emotional support Carissa VU
--- NOTE | 2022-08-31 20:38 | ED.RN ---
shortly after placement of central line pt became confused. pt placed on bipap and sent to x-ray of evaluation for free air in infected extremity. while in x-ray she became red and warm to the touch. 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 upon returning to the department ed ordered intubation of the pt. she was stablized in ed and transported to icu for further care. dora lei rn [id number]
[2022-08-31] MEDS: 0.9% Normal Saline 1,000 ML 100 ML IV (20:50)
[2022-08-31 21:06] LABS: Allen Test Positive; Base Excess 3 mmol/L (-2 to +2); Bicarbonate 28.1 mmol/L (22-26); Blood Gas Specimen Type ART; FI02 50; Mode AC; O2 Delivery Device Adult Vent; PEEP 5; PO2 103 mmHG (75-100); RR 14; SITE L Radial; SO2 98 % (95-99); Total Carbon Dioxide 30 mmol/L; Vt 450; pCO2 48.5 mmHg (35-45); pH 7.37 (7.35-7.45)
[2022-08-31] MEDS: Nystatin Powder 15gm Bottle 1 APPLIC TOPICAL (21:40)
[2022-08-31] MEDS: Pramipexole Di-HCl 1 MG Tablet 3 MG PO (21:40)
[2022-08-31] MEDS: Propofol 10MG/Ml 1,000 MG/100 ML Bottle 19.5 MG CONT INF (22:00)
[2022-08-31] MEDS: Clindamycin 900 MG/50 ML BAG 75 MG IV (22:02)
[2022-08-31] MEDS: Chlorhexidine 15 ML PO (22:02)
[2022-08-31 23:05] LABS: CPK Total, Creatine Kinase 77 U/L (26-192); Triglycerides 133 mg/dL
[2022-09-01] VITALS (25 sets, daily range): BP systolic 90–137; BP diastolic 54–80; PULSE 80–96; RESP 14–25; TEMP 36.9–39.2; O2SAT 90–99
[2022-09-01] LABS: Bedside Glucose 124 mg/dL (74-106)
[2022-09-01 00:51] LABS: M R Staph aureus DNA By PCR Negative (Negative); Probe Check PASS; Specimen Processing Control PASS; Staph aureus DNA By PCR POSITIVE (Negative)
[2022-09-01 01:38] LABS: Partial Thromboplast Time 121.1 Seconds (24.1-36.2)
[2022-09-01] MEDS: Propofol 10MG/Ml 1,000 MG/100 ML Bottle 19.5 MG CONT INF (02:36)
[2022-09-01 03:05] LABS: Bedside Glucose 110 mg/dL (74-106)
--- NOTE | 2022-09-01 04:42 | SEPSISATNOTE ---
Sepsis Attestation Sepsis Alert: Yes Sepsis Attestation: Agree w/Sepsis Date exam was performed: 09/01/22 Time exam was performed: 04:52 Sepsis Organ Dysfunction Criteria Present: Acute Respiratory Failure (New need for BiPAP/CPAP or MV)
[2022-09-01] MEDS: TITRATION PARAMETER CHANGE 1 EACH IV (05:04)
[2022-09-01] MEDS: 0.9% Saline Lock 10 ML Syringe IV ×2 (05:04→21:31)
[2022-09-01] MEDS: Acetaminophen 650 MG/20 ML UDC GT ×3 (05:04→14:20)
[2022-09-01 05:07] LABS: Absolute Lymphocyte Count 0.73 X10^3/uL (0.83-4.51); Absolute Neutrophil Count 14.1 X10^3/uL (2.0-7.7); Basophil# 0.04 X10^3/uL; Basophil% 0.3 % (0-1); Eosinophil# 0.02 X10^3/uL; Eosinophils% 0.1 % (0-5); Hematocrit 29.6 % (37-47); Hemoglobin 8.8 g/dL (12.0-15.0); Lymphocyte # 0.73 X10^3/ul (0.83-4.51); Lymphocyte % 4.6 % (19-41); Mean Corp Hgb Conc 29.7 g/dL (32-36); Mean Corpuscular Hgb 22.2 pg (27.0-32.0); Mean Corpuscular Volume 74.6 fL (81-99); Mean Platelet Vol. 9.6 fl (6.2-12.0); Monocyte# 0.72 X10^3/uL; Monocyte% 4.5 % (0-10); NRBC Flagged by Analyzer 0 % (0-5); Neutrophil # 14.14 X10^3/uL (2.7-7.7); Neutrophil % 89.4 % (47-70); POSITIVE MORPHOLOGY YES; Platelet Count 264 K/mm3 (150-450); RBC Distribution Width CV 21.5 % (11.6-14.6); RBC Distribution Width SD 56.8 fl (35.1-43.9); Red Blood Count 3.97 M/mm3 (4.2-5.4); White Blood Count 15.8 K/mm3 (4.4-11.0)
[2022-09-01 05:13] LABS: Differential Indicated SCAN CRITERIA MET
[2022-09-01 05:23] LABS: ALB/GLOB Ratio 0.7 RATIO (0.9-2.4); AST(SGOT) 24 U/L (15-37); Alanine Aminotransfer ALT/SGPT 34 U/L (13-56); Albumin, Serum 2.5 g/dL (3.2-5.0); Alkaline Phosphatase 94 U/L (45-117); Anion Gap 7 (5-15); BUN 27 mg/dL (7-18); BUN/Creat Ratio 22.5 RATIO (10-20); Calcium,Total 7.9 mg/dL (8.5-10.1); Chloride 103 mmol/L (98-107); EST Glomerular Filtration Rate 48 mL/min (>60); Est Glom Filt Rate - Afr Amer 58 mL/min (>60); Estimated Creatinine Clearance 44.92 ml/min; Globulin 3.8 g/dL (2.2-4.2); Glucose 113 mg/dL (74-106); Potassium 3.6 mmol/L (3.5-5.1); Protein, Total 6.3 g/dL (6.4-8.2); Sodium Level 140 mmol/L (136-145)
[2022-09-01 05:34] LABS: Anisocytosis 2+; Microcytosis 1+
[2022-09-01] MEDS: Clindamycin 900 MG/50 ML BAG 75 MG IV (05:46)
[2022-09-01] MEDS: Nystatin Powder 15gm Bottle 1 APPLIC TOPICAL ×2 (05:49→21:18)
--- NOTE | 2022-09-01 06:22 | EX.PCM.CONCC ---
Assessment & Plan Assessment/Plan (1) Sepsis: PLAN: Plan RECOMMENDATIONS: 1. Continue broad-spectrum antimicrobials, pending finalized culture results. 2. Proceed with a trial of extubation this morning. 3. Once extubated, wean supplemental oxygen to maintain saturations at or above 90%. 4. Bedside swallow evaluation and advance diet accordingly. 5. Encourage incentive spirometer use while in bed. 6. Continue as needed bronchodilator therapy. 7. Continue systemic anticoagulation with heparin for now. IMPRESSIONS: 1. Sepsis The patient presented with sepsis due to lower extremity cellulitis with acute sepsis related organ dysfunction as evidenced by encephalopathy and acute respiratory failure requiring invasive mechanical ventilatory support. Blood cultures are currently pending. The patient did develop what was likely red man syndrome when administered vancomycin. She remains on appropriate broad-spectrum antimicrobials. The patient remains hemodynamically stable. Continue local wound care. 2. Acute hypoxemic respiratory failure The patient was ultimately intubated in the emergency department after she became more encephalopathic. CT imaging of the chest did reveal bilateral small PE. The patient is on appropriate systemic anticoagulation with heparin. This will be continued without change. Her respiratory status has significantly improved. She passed her spontaneous breathing trial this morning and will therefore be extubated. Once extubated, wean supplemental oxygen to maintain saturations at or above 90%. Bedside swallow evaluation to be completed and diet advanced accordingly. 3. Pulmonary emboli Continue systemic anticoagulation with heparin. Once medically stabilized, the patient can be transitioned to either Eliquis or Xarelto. 4. History of hypertension/hyperlipidemia/obesity/rheumatoid arthritis/obstructive sleep apnea/asthma Complicates care, management, recovery and prognosis. Continue home medications as indicated. Continue as needed bronchodilator therapy. TIME: 37 minutes of critical care time, independent of procedures, was spent addressing the patient's sepsis, acute hypoxemic respiratory failure, pulmonary emboli, review of all data and collaboration with the care team. HPI Consult Data Date of Consult: 09/01/22 HPI Narrative Reason for Consultation: Acute respiratory failure HPI Narrative: The patient is a 62-year-old female, with a history as outlined below, who presented to the emergency department via EMS on August 31 with chest pain and shortness of breath, along with left lower extremity edema. The patient has a known history of asthma and obstructive sleep apnea, but has not followed up in the pulmonary medicine clinic since May 2021. On presentation to the emergency department, the patient was noted to be afebrile hemodynamically stable. She was initially documented to be saturating 88% on room air. Initial laboratory evaluation revealed a white blood cell count of 17,000. Chemistry profile was unrevealing. Lactate was noted to be 1.8. MRSA screen was positive. CTA chest demonstrated emboli in the bilateral lower lobes. The patient was started on empiric antimicrobials over concerns for lower extremity cellulitis. According to documentation, peripheral access could not be obtained by nursing staff. Therefore a central venous catheter was placed by the emergency department provider. The patient apparently developed red man syndrome during her vancomycin infusion. She apparently decompensated in the ED, with documentation of worsening encephalopathy and a fever of 104 degrees. Ultimately, the patient was intubated. She was subsequently admitted to the medical intensive care unit for further management. Overnight, the patient has remained clinically stable. She remains on empiric antimicrobials along with a heparin infusion. The patient is alert and appropriately interactive. She passed her spontaneous breathing trial this morning. [facility] Medical History Anemia Anxiety Anxiety and depression Asthma Asthma exacerbation Below knee amputation Benign essential HTN BiPAP (biphasic positive airway pressure) dependence Bronchospasm Depression Failure of outpatient treatment Family history of diabetes mellitus (DM) Fibromyalgia Former smoker GERD (gastroesophageal reflux disease) Hypertension Morbid obesity Necrotizing fasciitis Obstructive sleep apnea Reflex sympathetic dystrophy Restless leg syndrome Rheumatoid arthritis Sleep apnea Home Medications furosemide 40 mg tablet 40 mg PO BID PRN fluid overload 06/13/17 [History Last Taken 08/31/22] citalopram 40 mg tablet 40 mg PO DAILY depression 08/25/18 [History Last Taken 08/31/22] potassium chloride 20 mEq tablet,extended release(part/cryst) 40 meq PO DAILY supplement 11/01/18 [History Last Taken 08/31/22] oxycodone-acetaminophen 5 mg-325 mg tablet 2 tab PO QHS PRN PRN Pain 09/20/19 [History Last Taken 1 Week Ago ~06/08/21] albuterol sulfate 90 mcg/actuation aerosol inhaler 2 puff inhalation Q6H PRN shortness of breath or wheezing #8.5 grams 05/11/21 [Rx Last Taken 08/24/22] valsartan 320 mg tablet 320 mg PO DAILY heart 05/19/21 [History Last Taken 08/31/22] omeprazole 40 mg capsule,delayed release 40 mg PO DAILY gerd 06/15/21 [History Last Taken 08/31/22] pramipexole 1.5 mg tablet 3 mg PO QHS rls 06/15/21 [History Last Taken 08/30/22] meloxicam 7.5 mg tablet 7.5 mg PO BID PRN KNEE PAIN #0 tabs 10/03/21 [Rx Last Taken 08/31/22] cyclobenzaprine 10 mg tablet 10 mg PO QHS PRN muscle spasm #0 tabs 03/09/22 [Rx Last Taken 08/31/22] amitriptyline 100 mg tablet 100 mg PO DAILY PAIN AND SLEEP 08/31/22 [History Last Taken 08/30/22] cholecalciferol (vitamin D3) 1,250 mcg (50,000 unit) capsule 1,250 mcg PO MO SUPPLEMENT 08/31/22 [History Last Taken 08/28/22] famotidine 20 mg tablet 20 mg PO BID GERD 08/31/22 [History Last Taken 08/31/22] Allergy/AdvReac Type Severity Reaction Status Date / Time amlodipine AdvReac Swelling Verified 08/31/22 11:26 Family History Mother Hypertension Cancer Pancreatic Diabetes Father Cancer pancreatic Brother Diabetes Grandfather Diabetes Surgical History Chronic knee pain after total replacement of left knee joint H/O foot surgery History of hysterectomy History of tonsillectomy Hx of breast reduction, elective Social History (Updated 08/31/22 @ 20:[address] Phylicia Hurtado MD) household members: significant other Smoking Status: Former smoker alcohol intake: never substance use type: does not use ROS Review of Systems ROS Unobtainable: due to endotracheal tube Physical Exam Const alert and no apparent distress General Appearance: patient mechanically ventilated Nutritional Appearance: morbidly obese HEENT normocephalic and head/scalp atraumatic Mouth: endotracheal tube in place and OG tube in place Eyes PERRL, EOMs intact bilaterally and conjunctivae normal Neck supple General: trachea midline and CVC in place Chest inspection of chest normal Resp normal respiratory effort Auscultation: Negative for rales, rhonchi or wheezes Cardio regular rate and regular rhythm GI normal to inspection, nondistended, normoactive bowel sounds Extremity General Extremity: amputation and edema left lower extremity Skin Skin Narrative: Wound involving distal left lower extremity, currently wrapped. Neuro Neuro Narrative: The patient is alert and able to follow simple commands appropriately. Lab / Micro Data Result Diagrams: 09/01/22 05:00 09/01/22 05:00 Labs: Laboratory Results - last 24 hr 08/31/22 13:27: WBC 17.5 H, RBC 5.14, Hgb 11.4 L, Hct 39.0, MCV 75.9 L, MCH 22.2 L, MCHC 29.2 L, RDW Std Deviation 57.9 H, RDW Coeff of Naga 22.0 H, Plt Count 328, MPV 10.0, Immature Gran % (Auto) 0.600, Neut % (Auto) 84.7 H, Lymph % (Auto) 7.2 L, Stanton % (Auto) 6.8, Eos % (Auto) 0.3, Baso % (Auto) 0.4, Absolute Neuts (auto) 14.8 H, Absolute Lymphs (auto) 1.26, Nucleated RBC % 0, Anisocytosis 1+ 08/31/22 13:27: D-Dimer Quant (PE/DVT) 0.74 H* 08/31/22 13:27: Sodium 139, Potassium 3.7, Chloride 101, Carbon Dioxide 30.0, Anion Gap 8, BUN 22 H, Creatinine 0.95, Estim Creat Clear Calc 56.74, Est GFR (MDRD) Af Amer 76, Est GFR (MDRD) Non-Af 63, BUN/Creatinine Ratio 23.1 H, Glucose 88, Calcium 9.1, Troponin I High Sens 13 08/31/22 13:27: PT 12.8, INR 1.0, APTT 24.3 08/31/22 13:27: B-Natriuretic Peptide 100.2 H 08/31/22 13:27: Total Creatine Kinase 77, Triglycerides 133 08/31/22 15:52: Lactic Acid 1.8 08/31/22 18:16: POC Glucose 124 H 08/31/22 23:20: S.aureus Protein A PCR POSITIVE H, MRSA (PCR) Negative 09/01/22 01:20: APTT 121.1 H* 09/01/22 02:34: POC Glucose 110 H 09/01/22 05:00: WBC 15.8 H, RBC 3.97 L, Hgb 8.8 L, Hct 29.6 L, MCV 74.6 L, MCH 22.2 L, MCHC 29.7 L, RDW Std Deviation 56.8 H, RDW Coeff of Naga 21.5 H, Plt Count 264, MPV 9.6, Immature Gran % (Auto) 1.100 H, Neut % (Auto) 89.4 H, Lymph % (Auto) 4.6 L, Stanton % (Auto) 4.5, Eos % (Auto) 0.1, Baso % (Auto) 0.3, Absolute Neuts (auto) 14.1 H, Absolute Lymphs (auto) 0.73 L, Nucleated RBC % 0, Anisocytosis 2+, Microcytosis 1+ 09/01/22 05:00: Sodium 140, Potassium 3.6, Chloride 103, Carbon Dioxide 30.0, Anion Gap 7, BUN 27 H, Creatinine 1.20 H, Estim Creat Clear Calc 44.92, Est GFR (MDRD) Af Amer 58 L, Est GFR (MDRD) Non-Af 48 L, BUN/Creatinine Ratio 22.5 H, Glucose 113 H, Calcium 7.9 L, Total Bilirubin 0.50, AST 24, ALT 34, Alkaline Phosphatase 94, Total Protein 6.3 L, Albumin 2.5 L, Globulin 3.8, Albumin/Globulin Ratio 0.7 L ABG Data ABG results: ABG 08/31/22 08/31/22 19:31 20:59 Specimen Type ART ART Sample Site R Radial L Radial pH 7.29 L 7.37 Bicarbonate Actual 29.9 H 28.1 H Total CO2 32 30 Base Excess 3 H 3 H O2 Saturation 99 98 O2 % 100 50 ABG pCO2 62.5 H 48.5 H ABG pO2 149 H 103 H Bridger Test Positive Positive Respiration Rate 14 14 O2 Delivery Device Adult Vent Adult Vent Vent Mode AC AC Tidal Volume 450 450 POC PEEP 5 5 Radiology Impression Chest X-Ray 08/31/22 13:06 IMPRESSION: No acute abnormality is seen. Electronically Signed: Sean Cotton MD at 13:38 EST , Chest CTA 08/31/22 13:56 IMPRESSION: I suspect emboli involving branches of both right and left lower lobes. Electronically Signed: Sean Cotton MD at 15:49 EST , Chest X-Ray 08/31/22 17:40 IMPRESSION: Central catheter placement. No pneumothorax. No focal infiltrate. Electronically Signed: August Randolph MD at 18:09 EST Reading Location ID and State: [facility] / [place] , Service support , Femur X-Ray 08/31/22 18:26 IMPRESSION: Knee replacement. No air seen in the soft tissues. Electronically Signed: August Randolph MD at 19:57 EST Reading Location ID and State: [facility] / [place] , Service support , Tibia/Fibula X-Ray 08/31/22 18:26 IMPRESSION: Soft tissue swelling. Postoperative change. Electronically Signed: August Randolph MD at 20:11 EST Reading Location ID and State: [facility] / [place] , Service support , Chest X-Ray 08/31/22 18:52 IMPRESSION: Endotracheal tube and feeding tube placement. Left lower lung atelectasis. Electronically Signed: August Randolph MD at 21:01 EST Reading Location ID and State: [facility] / [place] , Service support , KUB X-Ray 08/31/22 19:45 IMPRESSION: Feeding tube extends to the stomach. Electronically Signed: August Randolph MD at 21:05 EST , Charges/Coding Procedures Hospitalists Procedures: 18356 Critial Care 1st Hr
[2022-09-01 07:44] LABS: Hemoglobin A1c 5.8 % (3.8-5.6)
--- NOTE | 2022-09-01 09:45 | CASEMGMT ---
RN STEFAN Face to Face with patient for initial transition planning/care coordination assessment. RN CM introduced self and role at [facility]. Patient lying in bed, alert and oriented, sister at bedside. Patient willing to participate in assessment and is able to answer all questions appropriately. Care providers, pharmacy, and demographics verified. Patient wishes to discharge home with possible HHC. Patient states she has no further needs or concerns at this time. CM to follow for discharge planning needs that may arise. PCP: Varsha Specialists: tatiana Bradley Preferred Pharmacy: [facility] Insurance: [employer] Prescription Benefit: yes Living Will/HPOA: yes, daughter Sabrina Mueller LNOK: daughter, son, sister Living Arrangements: Patient lives with son in a first floor apartment with ramp to enter. Patient states she is independent at home. Transportation: son, sister DME/HHC: Patient states she has tub bench, raised toilet, cane, walker, wheelchair, grab bars, nebulizer, pulse ox, and home oxygen at through [employer]. Patient states she would like to change DME provider of oxygen to [facility]. Patient has had [facility]HC in the past. [facility] Patient is interesting in possible HHC, CM to provide patient with list. Will monitor patient for home oxygen with portability at discharge. Patient states son and sister are able to assist with wound care. Disposition Plan: Patient to discharge home with possible HHC, family support, and follow-up plans in place. Brigette COHNN, RN, CM
[2022-09-01] MEDS: Potassium Chloride Oral Tablet 20 MEQ 40 MEQ PO (10:24)
[2022-09-01] MEDS: Furosemide 40 MG Tablet PO (10:24)
[2022-09-01] MEDS: Amitriptyline 100 MG Tablet PO (10:25)
[2022-09-01] MEDS: Losartan Potassium 100 MG Tablet PO (10:25)
[2022-09-01] MEDS: Citalopram 40 MG TABLET PO (10:25)
--- NOTE | 2022-09-01 10:52 | PN.HOSP_ITS ---
Subjective Subjective Patient seen and examined. She was just extubated this morning. SHe had no active complaints. SHe denied any fever, chills, cough, chest pain, palpitations, dizziness, nausea, vomiting or diarrhea. Review of system is otherwise negative. Objective Data Objective Data Vital Signs: Vital Signs Temp Pulse Resp BP Pulse Ox O2 Del Method O2 Flow Rate 101.2 F H 85 23 H 114/65 96 Nasal Cannula 2 09/01/22 08:00 09/01/22 08:00 09/01/22 08:00 09/01/22 08:00 09/01/22 08:00 09/01/22 08:00 09/01/22 08:00 FiO2 30 09/01/22 07:00 Oxygen Flow Rate (L/min) 2 Oxygen Delivery Method Nasal Cannula Weight: 341 lb 0.882 oz Body Mass Index (BMI) 53.9 Intake & Output: Intake and Output for Last 24 Hours 08/30/22 08/31/22 09/01/22 23:59 23:59 23:59 Intake Total 552.17 / 625.77 1507.13 / 1507.13 Output Total 975 / 975 Balance 552.17 / 25.77 532.13 / 532.13 Lab / Micro Data Result Diagrams: 09/01/22 05:00 09/01/22 05:00 Labs: Laboratory Results - last 24 hr 08/31/22 13:27: WBC 17.5 H, RBC 5.14, Hgb 11.4 L, Hct 39.0, MCV 75.9 L, MCH 22.2 L, MCHC 29.2 L, RDW Std Deviation 57.9 H, RDW Coeff of Naga 22.0 H, Plt Count 3 28, MPV 10.0, Immature Gran % (Auto) 0.600, Neut % (Auto) 84.7 H, Lymph % (Auto) 7.2 L, Davidson % (Auto) 6.8, Eos % (Auto) 0.3, Baso % (Auto) 0.4, Absolute Neuts (auto) 14.8 H, Absolute Lymphs (auto) 1.26, Nucleated RBC % 0, Anisocytosis 1+ 08/31/22 13:27: D-Dimer Quant (PE/DVT) 0.74 H* 08/31/22 13:27: Sodium 139, Potassium 3.7, Chloride 101, Carbon Dioxide 30.0, Anion Gap 8, BUN 22 H, Creatinine 0.95, Estim Creat Clear Calc 56.74, Est GFR (MDRD) Af Amer 76, Est GFR (MDRD) Non-Af 63, BUN/Creatinine Ratio 23.1 H, G lucose 88, Calcium 9.1, Troponin I High Sens 13 08/31/22 13:27: PT 12.8, INR 1.0, APTT 24.3 08/31/22 13:27: B-Natriuretic Peptide 100.2 H 08/31/22 13:27: Total Creatine Kinase 77, Triglycerides 133 08/31/22 15:52: Lactic Acid 1.8 08/31/22 18:16: POC Glucose 124 H 08/31/22 23:20: S.aureus Protein A PCR POSITIVE H, MRSA (PCR) Negative 09/01/22 01:20: APTT 121.1 H* 09/01/22 02:34: POC Glucose 110 H 09/01/22 05:00: WBC 15.8 H, RBC 3.97 L, Hgb 8.8 L, Hct 29.6 L, MCV 74.6 L, MCH 22.2 L, MCHC 29.7 L, RDW Std Deviation 56.8 H, RDW Coeff of Naga 21.5 H, Plt Count 264, MPV 9.6, Immature Gran % (Auto) 1.100 H, Neut % (Auto) 89.4 H, Lymph % (Auto) 4.6 L, Davidson % (Auto) 4.5, Eos % (Auto) 0.1, Baso % (Auto) 0.3, Absolute Neuts (auto) 14.1 H, Absolute Lymphs (auto) 0.73 L, Nucleated RBC % 0, Anisocytosis 2+, Microcytosis 1+ 09/01/22 05:00: Sodium 140, Potassium 3.6, Chloride 103, Carbon Dioxide 30.0, Anion Gap 7, BUN 27 H, Creatinine 1.20 H, Estim Creat Clear Calc 44.92, Est GFR (MDRD) Af Amer 58 L, Est GFR (MDRD) Non-Af 48 L, BUN/Creatinine Ratio 22.5 H, Glucose 113 H, Calcium 7.9 L, Total Bilirubin 0.50, AST 24, ALT 34, Alkaline Phosphatase 94, Total Protein 6.3 L, Albumin 2.5 L, Globulin 3.8, Albumin/Globulin Ratio 0.7 L 09/01/22 05:00: Hemoglobin A1c 5.8 H Micro: Microbiology 08/31/22 15:52 Blood Culture (Wb) - Left Forearm Blood Culture - Preliminary ABG Data ABG results: ABG 08/31/22 08/31/22 19:31 20:59 Specimen Type ART ART Sample Site R Radial L Radial pH 7.29 L 7.37 Bicarbonate Actual 29.9 H 28.1 H Total CO2 32 30 Base Excess 3 H 3 H O2 Saturation 99 98 O2 % 100 50 ABG pCO2 62.5 H 48.5 H ABG pO2 149 H 103 H Bridger Test Positive Positive Respiration Rate 14 14 O2 Delivery Device Adult Vent Adult Vent Vent Mode AC AC Tidal Volume 450 450 POC PEEP 5 5 Radiography Diagnostic Testing: Radiology Impression Chest X-Ray 08/31/22 13:06 IMPRESSION: No acute abnormality is seen. Electronically Signed: Sean Cotton MD at 13:38 EST , Chest CTA 08/31/22 13:56 IMPRESSION: I suspect emboli involving branches of both right and left lower lobes. Electronically Signed: Sean Cotton MD at 15:49 EST , Chest X-Ray 08/31/22 17:40 IMPRESSION: Central catheter placement. No pneumothorax. No focal infiltrate. Electronically Signed: August Randolph MD at 18:09 EST , Femur X-Ray 08/31/22 18:26 IMPRESSION: Knee replacement. No air seen in the soft tissues. Electronically Signed: August Randolph MD at 19:57 EST , Tibia/Fibula X-Ray 08/31/22 18:26 IMPRESSION: Soft tissue swelling. Postoperative change. Electronically Signed: August Randolph MD at 20:11 EST Reading Location ID and State: [facility] / [place] , Service support , Chest X-Ray 08/31/22 18:52 IMPRESSION: Endotracheal tube and feeding tube placement. Left lower lung atelectasis. Electronically Signed: August Randolph MD at 21:01 EST Reading Location ID and State: [address] [place] [address] , Service support , KUB X-Ray 08/31/22 19:45 IMPRESSION: Feeding tube extends to the stomach. Electronically Signed: August Randolph MD at 21:05 EST Reading Location ID and State: [address] [place] [address] , Service support , Echocardiogram 08/31/22 20:16 Interpretation Summary The left ventricular ejection fraction is 60 %. The study was technically difficult. Ordering Physician: Phylicia Hurtado Referring Physician: OJ HENDRICKSON Performed By: Connie Martínez RCS Physical Exam Const alert, oriented x3 and no apparent distress HEENT head/scalp atraumatic, moist oral mucous membranes and oropharynx normal Head and Scalp: normocephalic Eyes PERRL, EOMs intact bilaterally and conjunctivae normal Neck no lymphadenopathy and supple Resp Resp Narrative: mildly diminished breath sounds bibasally, no wheezes or crackles. On 2L of oxygen by nasal canula Cardio regular rate, regular rhythm, S1 normal heart sound, S2 normal heart sound and no murmurs GI normal to inspection, nondistended, normoactive bowel sounds, soft to palpation and non-tender Extremity Extremity Narrative: left BKA, RLE wrapped in bandage Neuro oriented x3, CN's II-XII intact bilaterally and moves all extremities Sensorium / Orientation: awake and alert Speech: speech normal Motor Exam: strength 5/5 throughout Psych affect normal Assessment & Plan Assessment/Plan (1) Sepsis: (2) Hypoxia: (3) Bilateral pulmonary embolism: (4) Cellulitis of left lower extremity: PLAN: Plan #Acute hypoxic respiratory failure due to bilateral PE * was extubated this morning and is on 2L of oxygen * CTA chest showed small peripheral PE * on breathing treatment with bronchodilators * titrate oxygen to maintain sats >90% * currently on broad spectrum antibiotics for sepsis due to RLE pneumonia * #Sepsis due to RLE cellulitis * on IV antibiotics * blood cultures ordered * she developed red man syndrome after taking vancomycin so this was discontinued * now on IV clindamycin and zosyn * wound care on board. * blood cultures growing gram positive cocci * wbc is 15.8 * sputum cultures growing 2+ staphylococcus sp * #PE: on heparin drip. Will switch to eliquis or xarelto once she is medically stable #Hypertension: on lasix and valsartan #Anxiety and depression: on amitryptiline and escitalopram #Rheumatoid arthritis: on chronic steroids #GERD: on PPI DVT prophylaxis: on eliquis Charges/Coding Visit Charges Inpatient E&M: 96008 Subs Hosp L3
[2022-09-01] MEDS: HEPARIN/D5w 25,000 UNITS 25,000 UNITS/250 ML IV.SOLN. 17 UNITS CONT INF (11:00)
[2022-09-01 11:28] LABS: Partial Thromboplast Time 53.4 Seconds (24.1-36.2)
--- NOTE | 2022-09-01 11:42 | WOUNDNOTE ---
wound photo: left lower leg
--- NOTE | 2022-09-01 11:42 | WOUNDNOTE ---
wound photo: left lateral ankle
[2022-09-01] MEDS: Heparin Injection (Vial) 5,000 UNIT/ML VIAL IV (11:56)
[2022-09-01 12:30] LABS: Bedside Glucose 95 mg/dL (74-106)
--- NOTE | 2022-09-01 12:39 | CON.PCM.ID_ITS ---
Assessment & Plan Assessment/Plan (1) Sepsis: PLAN: Unclear cause. LLE redness. Single Bcx now with GPC in chains. Sputum with staph. Nares pcr with mssa. Had reported Red Man with vanc. No sign of recurrent necrotizing fasciitis at this time. Will stop clinda. Cont zosyn for now. Will check doppler LLE. Thank you, will follow (2) Cellulitis of left lower extremity: (3) Bilateral pulmonary embolism: HPI Consult Data Date of Consult: 09/01/22 HPI Narrative Reason for Consultation: (+) bcx HPI Narrative: SAULO PUENTES, is a 62 F with h/o necrotizing fasciitis in lower LLE earlier this year, treated at [facility] with I&D and abx. Has R BKA. Came to ED 08/31 with one week progressive dyspnea, fatigue, weakness, chest pain. Had increasing lower leg redness. No drainage/blistering/pain. No fever or chills prior to admit. Came to ED, CTA showed PEs, intubated, admitted to icu. Now off vent. Had redness/flushing with vanc, now resolved. Feeling better, family at bedside. Full ROS performed and neg except as noted above. [facility] Medical History Anemia Anxiety Anxiety and depression Asthma Asthma exacerbation Below knee amputation Benign essential HTN BiPAP (biphasic positive airway pressure) dependence Bronchospasm Depression Failure of outpatient treatment Family history of diabetes mellitus (DM) Fibromyalgia Former smoker GERD (gastroesophageal reflux disease) Hypertension Morbid obesity Necrotizing fasciitis Obstructive sleep apnea Reflex sympathetic dystrophy Restless leg syndrome Rheumatoid arthritis Sleep apnea Home Medications furosemide 40 mg tablet 40 mg PO BID PRN fluid overload 06/13/17 [History Last Taken 08/31/22] citalopram 40 mg tablet 40 mg PO DAILY depression 08/25/18 [History Last Taken 08/31/22] potassium chloride 20 mEq tablet,extended release(part/cryst) 40 meq PO DAILY supplement 11/01/18 [History Last Taken 08/31/22] oxycodone-acetaminophen 5 mg-325 mg tablet 2 tab PO QHS PRN PRN Pain 09/20/19 [History Last Taken 1 Week Ago ~06/08/21] albuterol sulfate 90 mcg/actuation aerosol inhaler 2 puff inhalation Q6H PRN shortness of breath or wheezing #8.5 grams 05/11/21 [Rx Last Taken 08/24/22] valsartan 320 mg tablet 320 mg PO DAILY heart 05/19/21 [History Last Taken 08/31/22] omeprazole 40 mg capsule,delayed release 40 mg PO DAILY gerd 06/15/21 [History Last Taken 08/31/22] pramipexole 1.5 mg tablet 3 mg PO QHS rls 06/15/21 [History Last Taken 08/30/22] meloxicam 7.5 mg tablet 7.5 mg PO BID PRN KNEE PAIN #0 tabs 10/03/21 [Rx Last T aken 08/31/22] cyclobenzaprine 10 mg tablet 10 mg PO QHS PRN muscle spasm #0 tabs 03/09/22 [Rx Last Taken 08/31/22] amitriptyline 100 mg tablet 100 mg PO DAILY PAIN AND SLEEP 08/31/22 [History Last Taken 08/30/22] cholecalciferol (vitamin D3) 1,250 mcg (50,000 unit) capsule 1,250 mcg PO MO SUPPLEMENT 08/31/22 [History Last Taken 08/28/22] famotidine 20 mg tablet 20 mg PO BID GERD 08/31/22 [History Last Taken 08/31/22] Allergy/AdvReac Type Severity Reaction Status Date / Time amlodipine AdvReac Swelling Verified 08/31/22 11:26 Family History Mother Hypertension Cancer Pancreatic Diabetes Father Cancer pancreatic Brother Diabetes Grandfather Diabetes Surgical History Chronic knee pain after total replacement of left knee joint H/O foot surgery History of hysterectomy History of tonsillectomy Hx of breast reduction, elective Social History (Updated 08/31/22 @ 20:[address] Phylicia Hurtado MD) household members: significant other Smoking Status: Former smoker alcohol intake: never substance use type: does not use Physical Exam Const alert, oriented x3 and no apparent distress General Appearance: cooperative HEENT normocephalic and head/scalp atraumatic Eyes PERRL and EOMs intact bilaterally Neck supple and No nodes Resp normal air movement and clear to auscultation bilaterally Cardio regular rate and regular rhythm GI soft to palpation, non-tender and non-distended Extremity General Extremity: edema Skin Skin Narrative: Lower left leg redness, not tender. RLE s/p BKA. Neuro CN's II-XII intact bilaterally Lab / Micro Data Attestation: I reviewed the patient's lab results. Result Diagrams: 09/01/22 05:00 09/01/22 05:00 Labs: Laboratory Results - last 24 hr 08/31/22 13:27: WBC 17.5 H, RBC 5.14, Hgb 11.4 L, Hct 39.0, MCV 75.9 L, MCH 22.2 L, MCHC 29.2 L, RDW Std Deviation 57.9 H, RDW Coeff of Naga 22.0 H, Plt Count 328, MPV 10.0, Immature Gran % (Auto) 0.600, Neut % (Auto) 84.7 H, Lymph % (Auto) 7.2 L, Saline % (Auto) 6.8, Eos % (Auto) 0.3, Baso % (Auto) 0.4, Absolute Neuts (auto) 14.8 H, Absolute Lymphs (auto) 1.26, Nucleated RBC % 0, Anisocytosis 1+ 08/31/22 13:27: D-Dimer Quant (PE/DVT) 0.74 H* 08/31/22 13:27: Sodium 139, Potassium 3.7, Chloride 101, Carbon Dioxide 30.0, Anion Gap 8, BUN 22 H, Creatinine 0.95, Estim Creat Clear Calc 56.74, Est GFR (MDRD) Af Amer 76, Est GFR (MDRD) Non-Af 63, BUN/Creatinine Ratio 23.1 H, Glucose 88, Calcium 9.1, Troponin I High Sens 13 08/31/22 13:27: PT 12.8, INR 1.0, APTT 24.3 08/31/22 13:27: B-Natriuretic Peptide 100.2 H 08/31/22 13:27: Total Creatine Kinase 77, Triglycerides 133 08/31/22 15:52: Lactic Acid 1.8 08/31/22 18:16: POC Glucose 124 H 08/31/22 23:20: S.aureus Protein A PCR POSITIVE H, MRSA (PCR) Negative 09/01/22 01:20: APTT 121.1 H* 09/01/22 02:34: POC Glucose 110 H 09/01/22 05:00: WBC 15.8 H, RBC 3.97 L, Hgb 8.8 L, Hct 29.6 L, MCV 74.6 L, MCH 22.2 L, MCHC 29.7 L, RDW Std Deviation 56.8 H, RDW Coeff of Naga 21.5 H, Plt Count 264, MPV 9.6, Immature Gran % (Auto) 1.100 H, Neut % (Auto) 89.4 H, Lymph % (Auto) 4.6 L, Saline % (Auto) 4.5, Eos % (Auto) 0.1, Baso % (Auto) 0.3, Absolute Neuts (auto) 14.1 H, Absolute Lymphs (auto) 0.73 L, Nucleated RBC % 0, An isocytosis 2+, Microcytosis 1+ 09/01/22 05:00: Sodium 140, Potassium 3.6, Chloride 103, Carbon Dioxide 30.0, Anion Gap 7, BUN 27 H, Creatinine 1.20 H, Estim Creat Clear Calc 44.92, Est GFR (MDRD) Af Amer 58 L, Est GFR (MDRD) Non-Af 48 L, BUN/Creatinine Ratio 22.5 H, Glucose 113 H, Calcium 7.9 L, Total Bilirubin 0.50, AST 24, ALT 34, Alkaline Phosphatase 94, Total Protein 6.3 L, Albumin 2.5 L, Globulin 3.8, Albumin/Globulin Ratio 0.7 L 09/01/22 05:00: Hemoglobin A1c 5.8 H 09/01/22 11:00: APTT 53.4 H 09/01/22 12:14: POC Glucose 95 Micro: Microbiology 08/31/22 15:52 Blood Culture (Wb) - Left Forearm Bacteria Detection (PCR) - Final Streptococcus pyogenes 08/31/22 15:52 Blood Culture (Wb) - Left Forearm Blood Culture - Preliminary Streptococcus pyogenes 08/31/22 23:20 Wound - Ankle Gram Stain - Final 08/31/22 23:20 Wound - Ankle Wound Culture - Preliminary No growth-Final to follow 08/31/22 20:40 Sputum, Induced/Lukens Gram Stain - Final 08/31/22 20:40 Sputum, Induced/Lukens Respiratory Culture - Preliminary Staphylococcus species 08/31/22 22:00 Urine Catheter - Walsh Urine Culture - Preliminary Culture exhibits no growth. ABG Data ABG results: ABG 08/31/22 08/31/22 19:31 20:59 Specimen Type ART ART Sample Site R Radial L Radial pH 7.29 L 7.37 Bicarbonate Actual 29.9 H 28.1 H Total CO2 32 30 Base Excess 3 H 3 H O2 Saturation 99 98 O2 % 100 50 ABG pCO2 62.5 H 48.5 H ABG pO2 149 H 103 H Bridger Test Positive Positive Respiration Rate 14 14 O2 Delivery Device Adult Vent Adult Vent Vent Mode AC AC Tidal Volume 450 450 POC PEEP 5 5 Radiology Impression Chest X-Ray 08/31/22 13:06 IMPRESSION: No acute abnormality is seen. Electronically Signed: Sean Cotton MD at 13:38 EST , Chest CTA 08/31/22 13:56 IMPRESSION: I suspect emboli involving branches of both right and left lower lobes. Electronically Signed: Sean Cotton MD at 15:49 EST , Chest X-Ray 08/31/22 17:40 IMPRESSION: Central catheter placement. No pneumothorax. No focal infiltrate. Electronically Signed: August Randolph MD at 18:09 EST , Femur X-Ray 08/31/22 18:26 IMPRESSION: Knee replacement. No air seen in the soft tissues. Electronically Signed: August Randolph MD at 19:57 EST , Tibia/Fibula X-Ray 08/31/22 18:26 IMPRESSION: Soft tissue swelling. Postoperative change. Electronically Signed: August Randolph MD at 20:11 EST , Chest X-Ray 08/31/22 18:52 IMPRESSION: Endotracheal tube and feeding tube placement. Left lower lung atelectasis. Electronically Signed: August Randolph MD at 21:01 EST , KUB X-Ray 08/31/22 19:45 IMPRESSION: Feeding tube extends to the stomach. Electronically Signed: August Randolph MD at 21:05 EST , Echocardiogram 08/31/22 20:16 Interpretation Summary The left ventricular ejection fraction is 60 %. The study was technically difficult. Ordering Physician: Phylicia Hurtado Referring Physician: OJ HENDRICKSON Performed By: Connie Martínez RCS
--- NOTE | 2022-09-01 12:43 | VDLE_ITS ---
Reason For Study: PE Procedure LEFT This is a venous duplex using B-mode, color GSV is normal. flow and spectral Doppler. CFV is compressible, spontaneous, phasic, Exam performed portable in ICU/CCU. competent, and demonstrates normal Calf veins technically difficult to augmentation. visualize due to pt body habitus. FV is compressible, spontaneous, phasic, A preliminary report was called and/or faxed competent and demonstrates normal to ICU. augmentation. POP V is compressible, spontaneous, phasic, competent and demonstrates normal augmentation. T/P Trunk is compressible. PTV is compressible. LT PerV is compressible. VL/Venous Duplex US, Unilateral Interpretation Summary There is no evidence of left lower extremity deep vein thrombosis. Left great s aphenous vein appears patent and compressible segmentally. Calf veins difficult to visualize secondar y to patient body habitus. Ordering Physician: Andrea Royal Referring Physician: Butch Maddox Performed By: Brigette Oro RVT
--- NOTE | 2022-09-01 16:08 | CASEMGMT ---
A list of [facility] providers including quality and resource use data and consistent with the patient?s preferred geographical region, medical needs, and insurance network were provided from the [employer] Guide. Patient to review list and provide preferences. CM will continue to follow this patient and plan for a safe discharge.
--- NOTE | 2022-09-01 17:12 | CPS ---
patient has own cpap set up at bedside, does not use water
[2022-09-01] MEDS: Ensure Plus High Protein 120 ML LIQUID PO (17:15)
--- NOTE | 2022-09-01 17:16 | CHAPLAIN ---
Type of Pastoral Visit _x__ Initial Visit ___ Follow-up Visit ___ On-call Visit ___ General Patient Visit ___ Spiritual Assessment ___ Family Conference ___ Bereavement ___ Rapid Response ___ Code Blue ___ Other (describe below) Pastoral Care Referral From _x__ Patient ___ Family ___ Nurse ___ Physician ___ Booth Cashier ___ Bank Boss ___ Other (describe below) Sacrament/Intervention ___ Active listening ___ Anointing ___ Jain ___ Bereavement ___ Communion ___ Christine exploration ___ ___ Life review _x__ Prayer ___ Reconciliation ___ Sacrament of Sick _x__ Supportive presence ___ Wedding ___ Other (describe below) Pastoral Comments patient was in ICU at time of this visit; sister of pt was with her in room; pt is sleeping but awakens to her name; pt greets this heel caser but is obviously weak in voice and eyes go shut; pt does welcome a prayer; offer of support given to both in the room; pt says thank you
[2022-09-01 17:21] LABS: Bedside Glucose 122 mg/dL (74-106)
[2022-09-01] MEDS: Pramipexole Di-HCl 1 MG Tablet 3 MG PO (21:18)
[2022-09-01] MEDS: Morphine 2 MG/ML Syringe 4 MG IV (21:31)
[2022-09-01] MEDS: Acetaminophen 325 MG Tablet 650 MG PO (21:31)
[2022-09-02] VITALS (10 sets, daily range): BP systolic 103–113; BP diastolic 58–67; PULSE 82–89; RESP 20; TEMP 36.4–37.1; O2SAT 94–99
[2022-09-02 01:20] LABS: Bedside Glucose 131 mg/dL (74-106)
[2022-09-02 01:20] LABS: Bedside Glucose 115 mg/dL (74-106)
[2022-09-02 01:30] LABS: Partial Thromboplast Time 62.3 Seconds (24.1-36.2)
[2022-09-02] MEDS: HEPARIN/D5w 25,000 UNITS 25,000 UNITS/250 ML IV.SOLN. 18 UNITS CONT INF (03:10)
[2022-09-02] MEDS: Nystatin Powder 15gm Bottle 1 APPLIC TOPICAL ×3 (05:53→21:05)
[2022-09-02 06:25] LABS: Absolute Lymphocyte Count 1.13 X10^3/uL (0.83-4.51); Absolute Neutrophil Count 8.8 X10^3/uL (2.0-7.7); Basophil# 0.04 X10^3/uL; Basophil% 0.4 % (0-1); Eosinophil# 0.26 X10^3/uL; Eosinophils% 2.4 % (0-5); Hematocrit 31.1 % (37-47); Hemoglobin 9.5 g/dL (12.0-15.0); Lymphocyte # 1.13 X10^3/ul (0.83-4.51); Lymphocyte % 10.3 % (19-41); Mean Corp Hgb Conc 30.5 g/dL (32-36); Mean Corpuscular Hgb 22.6 pg (27.0-32.0); Mean Corpuscular Volume 73.9 fL (81-99); Mean Platelet Vol. 10.3 fl (6.2-12.0); Monocyte# 0.66 X10^3/uL; NRBC Flagged by Analyzer 0 % (0-5); Neutrophil # 8.79 X10^3/uL (2.7-7.7); Neutrophil % 79.8 % (47-70); POSITIVE MORPHOLOGY YES; Platelet Count 237 K/mm3 (150-450); RBC Distribution Width CV 21.2 % (11.6-14.6); RBC Distribution Width SD 55.7 fl (35.1-43.9); Red Blood Count 4.21 M/mm3 (4.2-5.4)
[2022-09-02 06:42] LABS: Differential Indicated SCAN CRITERIA MET
[2022-09-02 06:51] LABS: Anion Gap 6 (5-15); BUN 19 mg/dL (7-18); BUN/Creat Ratio 18.8 RATIO (10-20); Calcium,Total 8.3 mg/dL (8.5-10.1); Chloride 101 mmol/L (98-107); Creatinine, Serum 1.01 mg/dL (0.55-1.02); EST Glomerular Filtration Rate 59 mL/min (>60); Est Glom Filt Rate - Afr Amer 71 mL/min (>60); Estimated Creatinine Clearance 53.37 ml/min; Glucose 117 mg/dL (74-106); Potassium 3.3 mmol/L (3.5-5.1); Sodium Level 136 mmol/L (136-145)
[2022-09-02 06:52] LABS: Partial Thromboplast Time 53.4 Seconds (24.1-36.2)
[2022-09-02 07:16] LABS: Anisocytosis 2+; Microcytosis 1+
[2022-09-02] MEDS: Heparin Injection (Vial) 5,000 UNIT/ML VIAL IV (07:23)
--- NOTE | 2022-09-02 07:29 | NURSING ---
Heparin GTT increase per protocol verified with previous RN. Labs ordered and bolus given per protocol.
--- NOTE | 2022-09-02 07:41 | PN.CC_ITS ---
Assessment & Plan Assessment/Plan (1) Sepsis: PLAN: Plan RECOMMENDATIONS: 1. Continue antimicrobials per ID recommendations. 2. Wean supplemental oxygen to maintain saturations at or above 90%. 3. Encourage incentive spirometer use while in bed. 4. Continue heparin infusion. 5. Continue bronchodilator therapy. 6. Continue nocturnal Pap therapy per home regimen. IMPRESSIONS: 1. Sepsis The patient presented with sepsis due to lower extremity cellulitis with acute sepsis related organ dysfunction as evidenced by encephalopathy and acute respiratory failure requiring invasive mechanical ventilatory support. The patient has been successfully extubated with finalized culture still pending. The patient did develop what was likely red man syndrome when administered vancomycin. She remains on appropriate broad-spectrum antimicrobials under the discretion of infectious diseases. The patient remains hemodynamically stable. Continue local wound care. 2. Acute hypoxemic respiratory failure Resolved. The patient was ultimately intubated in the emergency department after she became more encephalopathic. CT imaging of the chest did reveal bilateral small PE. The patient is on appropriate systemic anticoagulation with heparin. This will be continued without change. Her respiratory status has significantly improved. Continue to wean supplemental oxygen to maintain saturations at or above 90%. Encourage incentive spirometer use and mobilize patient as tolerated. 3. Pulmonary emboli Continue systemic anticoagulation with heparin. Once medically stabilized, the patient can be transitioned to either Eliquis or Xarelto. 4. History of hypertension/hyperlipidemia/obesity/rheumatoid arthritis/obstructive sleep apnea/asthma Complicates care, management, recovery and prognosis. Continue home medications as indicated. Continue as needed bronchodilator therapy. This note was generated with [employer] dictation software. It may contain incorrect words, spelling, and punctuation that were not noted in checking the note before signing. Subjective Subjective The patient was seen and examined at the bedside this morning. Events from the last 24 hours have been reviewed. The patient continues to have fevers but remains otherwise hemodynamically stable on 2 L/min via nasal cannula. The patient denies any resting shortness of breath this morning. She remains on a heparin infusion. Potassium is low at 3.3. Objective Data Objective Data The patient's most recent lab work, culture data and imaging studies have all been personally reviewed. Surface echocardiogram demonstrated normal LV size and thickness with an ejection fraction of 60%. Lower extremity Doppler study was negative for DVT. Preliminary sputum culture is demonstrating growth of staph aureus. Blood culture dated August 31 was positive for Streptococcus pyogenes. Vital Signs: Vital Signs Temp Pulse Resp BP Pulse Ox O2 Del Method O2 Flow Rate 98.4 F 84 20 H 110/58 L 99 Nasal Cannula 2 09/02/22 05:51 09/02/22 05:51 09/02/22 05:51 09/02/22 05:51 09/02/22 05:51 09/02/22 06:02 09/02/22 05:51 FiO2 30 09/01/22 07:00 Oxygen Flow Rate (L/min) 2 Oxygen Delivery Method Nasal Cannula Weight: 349 lb 3.395 oz Body Mass Index (BMI) 53.9 Intake & Output: Intake and Output for Last 24 Hours 08/31/22 09/01/22 09/02/22 23:59 23:59 23:59 Intake Total 552.17 / 625.77 2914.01 / 2914.01 480.3 / 480.3 Output Total 1974 350 / 350 Balance 552.17 / 25.77 939.01 / 939.01 130.3 / 130.3 Lab / Micro Data Attestation: I reviewed the patient's lab results. Result Diagrams: 09/02/22 05:48 09/02/22 05:48 Labs: Laboratory Results - last 24 hr 09/01/22 05:00: Hemoglobin A1c 5.8 H 09/01/22 11:00: APTT 53.4 H 09/01/22 12:14: POC Glucose 95 09/01/22 17:00: POC Glucose 122 H 09/01/22 18:05: APTT 61.0 H 09/01/22 21:17: POC Glucose 115 H 09/02/22 00:19: POC Glucose 131 H 09/02/22 00:49: APTT 62.3 H 09/02/22 05:48: WBC 11.0, RBC 4.21, Hgb 9.5 L, Hct 31.1 L, MCV 73.9 L, MCH 22.6 L, MCHC 30.5 L, RDW Std Deviation 55.7 H, RDW Coeff of Naga 21.2 H, Plt Count 237, MPV 10.3, Immature Gran % (Auto) 1.100 H, Neut % (Auto) 79.8 H, Lymph % (Auto) 10.3 L, [place]irt % (Auto) 6.0, Eos % (Auto) 2.4, Baso % (Auto) 0.4, Absolute Neuts (auto) 8.8 H, Absolute Lymphs (auto) 1.13, Nucleated RBC % 0, Anisocytosis 2+, Microcytosis 1+ 09/02/22 05:48: Sodium 136, Potassium 3.3 L, Chloride 101, Carbon Dioxide 29.0, Anion Gap 6, BUN 19 H, Creatinine 1.01, Estim Creat Clear Calc 53.37, Est GFR (MDRD) Af Amer 71, Est GFR (MDRD) Non-Af 59 L, BUN/Creatinine Ratio 18.8, Glucose 117 H, Calcium 8.3 L 09/02/22 05:48: APTT 53.4 H Micro: Microbiology 08/31/22 20:40 Sputum, Induced/Lukens Gram Stain - Final 08/31/22 20:40 Sputum, Induced/Lukens Respiratory Culture - Final Staphylococcus aureus 08/31/22 15:52 Blood Culture (Wb) - Left Forearm Bacteria Detection (PCR) - Final Streptococcus pyogenes 08/31/22 15:52 Blood Culture (Wb) - Left Forearm Blood Culture - Preliminary Streptococcus pyogenes 08/31/22 23:20 Wound - Ankle Gram Stain - Final 08/31/22 23:20 Wound - Ankle Wound Culture - Preliminary No growth-Final to follow 08/31/22 22:00 Urine Catheter - Walsh Urine Culture - Preliminary Culture exhibits no growth. Radiography Diagnostic Testing: Radiology Impression Echocardiogram 08/31/22 20:16 Interpretation Summary The left ventricular ejection fraction is 60 %. The study was technically difficult. Ordering Physician: Phylicia Hurtado Referring Physician: OJ MADDOX Performed By: Connie Martínez RCS Venous Doppler Study 09/01/22 12:43 Interpretation Summary There is no evidence of left lower extremity deep vein thrombosis. Left great saphenous vein appears patent and compressible segmentally. Calf veins difficult to visualize secondary to patient body habitus. Ordering Physician: Andrea Royal Referring Physician: Oj Maddox Performed By: Brigette Oro RVT Physical Exam Const alert, oriented x3 and no apparent distress General Appearance: cooperative Nutritional Appearance: morbidly obese HEENT normocephalic, head/scalp atraumatic and moist oral mucous membranes Eyes PERRL, EOMs intact bilaterally and conjunctivae normal Neck supple General: trachea midline and CVC in place Chest inspection of chest normal Resp normal respiratory effort Auscultation: Negative for rales, rhonchi or wheezes Cardio regular rate and regular rhythm GI normal to inspection, nondistended, normoactive bowel sounds Extremity General Extremity: amputation and edema left lower extremity Skin Skin Narrative: Wound involving distal left lower extremity, currently wrapped, with surrounding erythema. Neuro oriented x3, CN's II-XII intact bilaterally, moves all extremities and no focal motor deficits Psych cooperative and affect normal Charges/Coding Visit Charges Inpatient E&M: 88563 Subs Hosp L3
[2022-09-02 07:50] LABS: Bedside Glucose 131 mg/dL (74-106)
[2022-09-02] MEDS: Potassium Chloride Oral Tablet 20 MEQ 40 MEQ PO (09:27)
[2022-09-02] MEDS: oxyCODONE 5 MG Tablet PO ×3 (09:27→21:49)
[2022-09-02] MEDS: guaiFENesin 10 ML UDC (200MG/10ML) 20 ML PO (09:27)
[2022-09-02] MEDS: Amitriptyline 100 MG Tablet PO (09:28)
[2022-09-02] MEDS: Losartan Potassium 100 MG Tablet PO (09:28)
[2022-09-02] MEDS: Furosemide 40 MG Tablet PO (09:28)
[2022-09-02] MEDS: Ensure Plus High Protein 120 ML LIQUID PO (09:35)
[2022-09-02] MEDS: Citalopram 40 MG TABLET PO (09:42)
--- NOTE | 2022-09-02 10:41 | PN.HOSP_ITS ---
Subjective Subjective Patient seen and examined. She feels well this morning. She denies any fever, chills, cough, chest pain, palpitations, dizziness, nausea, vomiting or diarrhea. Review of systems is otherwise negative. Objective Data Objective Data Vital Signs: Vital Signs Temp Pulse Resp BP Pulse Ox O2 Del Method O2 Flow Rate 98.2 F 82 20 H 108/59 L 98 Nasal Cannula 2 09/02/22 08:17 09/02/22 08:17 09/02/22 08:17 09/02/22 08:17 09/02/22 08:17 09/02/22 08:17 09/02/22 08:17 FiO2 30 09/01/22 07:00 Oxygen Flow Rate (L/min) 2 Oxygen Delivery Method Nasal Cannula Weight: 349 lb 3.395 oz Body Mass Index (BMI) 53.9 Intake & Output: Intake and Output for Last 24 Hours 08/31/22 09/01/22 09/02/22 23:59 23:59 23:59 Intake Total 552.17 / 625.77 2914.01 / 2914.01 480.3 / 480.3 Output Total 1974 / 1974 675 / 675 Balance 552.17 / 25.77 939.01 / 939.01 -194.7 / -194.7 Lab / Micro Data Result Diagrams: 09/02/22 05:48 09/02/22 05:48 Labs: Laboratory Results - last 24 hr 09/01/22 11:00: APTT 53.4 H 09/01/22 12:14: POC Glucose 95 09/01/22 17:00: POC Glucose 122 H 09/01/22 18:05: APTT 61.0 H 09/01/22 21:17: POC Glucose 115 H 09/02/22 00:19: POC Glucose 131 H 09/02/22 00:49: APTT 62.3 H 09/02/22 05:48: WBC 11.0, RBC 4.21, Hgb 9.5 L, Hct 31.1 L, MCV 73.9 L, MCH 22.6 L, MCHC 30.5 L, RDW Std Deviation 55.7 H, RDW Coeff of Naga 21.2 H, Plt Count 237, MPV 10.3, Immature Gran % (Auto) 1.100 H, Neut % (Auto) 79.8 H, Lymph % (Auto) 10.3 L, [place] % (Auto) 6.0, Eos % (Auto) 2.4, Baso % (Auto) 0.4, Absolute Neuts (auto) 8.8 H, Absolute Lymphs (auto) 1.13, Nucleated RBC % 0, Anisocytosis 2+, Microcytosis 1+ 09/02/22 05:48: Sodium 136, Potassium 3.3 L, Chloride 101, Carbon Dioxide 29.0, Anion Gap 6, BUN 19 H, Creatinine 1.01, Estim Creat Clear Calc 53.37, Est GFR (MDRD) Af Amer 71, Est GFR (MDRD) Non-Af 59 L, BUN/Creatinine Ratio 18.8, Glucose 117 H, Calcium 8.3 L 09/02/22 05:48: APTT 53.4 H 09/02/22 07:21: POC Glucose 131 H Micro: Microbiology 08/31/22 23:20 Wound - Ankle Gram Stain - Final 08/31/22 23:20 Wound - Ankle Wound Culture - Preliminary Beta streptococcus Staphylococcus species 08/31/22 20:40 Sputum, Induced/Lukens Gram Stain - Final 08/31/22 20:40 Sputum, Induced/Lukens Respiratory Culture - Final Staphylococcus aureus 08/31/22 15:52 Blood Culture (Wb) - Left Forearm Bacteria Detection (PCR) - Final Streptococcus pyogenes 08/31/22 15:52 Blood Culture (Wb) - Left Forearm Blood Culture - Preliminary Streptococcus pyogenes 08/31/22 22:00 Urine Catheter - Walsh Urine Culture - Preliminary Culture exhibits no growth. Radiography Diagnostic Testing: Radiology Impression Echocardiogram 08/31/22 20:16 Interpretation Summary The left ventricular ejection fraction is 60 %. The study was technically difficult. Ordering Physician: Phylicia Hurtado Referring Physician: OJ MADDOX Performed By: Connie Martínez RCS Venous Doppler Study 12/02/22 12:43 Interpretation Summary There is no evidence of left lower extremity deep vein thrombosis. Left great saphenous vein appears patent and compressible segmentally. Calf veins difficult to visualize secondary to patient body habitus. Ordering Physician: Andrea Royal Referring Physician: Oj Maddox Performed By: Brigette Oro RVT Physical Exam Const alert, oriented x3 and no apparent distress HEENT head/scalp atraumatic, moist oral mucous membranes and oropharynx normal Head and Scalp: normocephalic Mouth: oral and palatal mucosa normal Eyes PERRL, EOMs intact bilaterally and conjunctivae normal Neck no lymphadenopathy and supple Resp normal respiratory effort, no retractions, no use of accessory muscles and clear to auscultation bilaterally Cardio regular rate, regular rhythm, S1 normal heart sound, S2 normal heart sound and no murmurs GI normal to inspection, nondistended, normoactive bowel sounds, soft to palpation, non-tender and non-distended Extremity Extremity Narrative: left BKA, RLE wrapped in bandage Neuro oriented x3, CN's II-XII intact bilaterally, moves all extremities and no focal motor deficits Sensorium / Orientation: awake and alert Motor Exam: strength 5/5 throughout Psych affect normal Assessment & Plan Assessment/Plan (1) Hypoxia: (2) Bilateral pulmonary embolism: (3) Cellulitis of left lower extremity: (4) Sepsis: PLAN: Plan #Acute hypoxic respiratory failure * due to bilateral PE and staph pneumonia * CTA chest showed small bilateral PE * titrate oxyen to maintain sats >90% * was intubated on day of admission, and now extubated * on IV zosyn; clindamycin dc'd per ID * #Sepsis due to RLE cellulitis and pneumonia * on IV zosyn. 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 DUplex of her bryan rowan extremities showed no evidence of DVT #Hypertension: o valsartan and lasix #Hypokalemia: K is 3.3. Will replace and trend. #ANxiety and depression: on amitryptiline and escitalopram #RHeumatoid arthritis: on steroids #GERD: on PPI DVT prophylaxis:on heparin drip. Start on eliquis today Charges/Coding Visit Charges Inpatient E&M: 39150 Subs Hosp L2
[2022-09-02 12:40] LABS: Bedside Glucose 110 mg/dL (74-106)
[2022-09-02] MEDS: APIXABAN 5 MG TABLET 10 MG PO ×2 (14:00→21:04)
[2022-09-02] MEDS: Acetaminophen 325 MG Tablet 650 MG PO ×2 (16:18→21:49)
[2022-09-02 16:40] LABS: Bedside Glucose 105 mg/dL (74-106)
--- NOTE | 2022-09-02 18:55 | CASEMGMT ---
RONAL AVILES NOTE: RONAL AVILES to room. Introduced self and role. Pt states she has not looked over [facility] list that was provided to her and does not know who her preferences would be. She states she thinks her sister took the list home w/her. CM to f/u with pt on Sunday. Pt provided w/Eliquis savings card and instructed on use. She was made aware, if refills are not affordable, to discuss other options w/PCP. She voices understanding. Sarah Beth GREEN RN, CM
[2022-09-02] MEDS: DiphenhydrAMINE 25 MG Capsule PO (19:06)
[2022-09-02] MEDS: Pramipexole Di-HCl 1 MG Tablet 3 MG PO (21:05)
[2022-09-03] VITALS (11 sets, daily range): BP systolic 108–131; BP diastolic 62–79; PULSE 71–93; RESP 17–20; TEMP 36.6–37.2; O2SAT 94–98
[2022-09-03 00:01] LABS: Bedside Glucose 116 mg/dL (74-106)
[2022-09-03] MEDS: DiphenhydrAMINE 25 MG Capsule PO ×4 (03:32→22:17)
[2022-09-03] MEDS: oxyCODONE 5 MG Tablet PO ×3 (03:32→22:11)
[2022-09-03] MEDS: Acetaminophen 325 MG Tablet 650 MG PO ×2 (03:32→22:11)
[2022-09-03 06:35] LABS: Bedside Glucose 117 mg/dL (74-106)
--- NOTE | 2022-09-03 07:06 | PCM.PN.INT ---
Assessment & Plan Assessment/Plan (1) Sepsis: PLAN: Plan RECOMMENDATIONS: 1. Continue antimicrobials per ID recommendations. 2. Encourage incentive spirometer use while in bed. 3. Continue Eliquis as ordered 4. Continue bronchodilator therapy. 5. Continue nocturnal Pap therapy per home regimen. IMPRESSIONS: 1. Sepsis The patient presented with sepsis due to lower extremity cellulitis with acute sepsis related organ dysfunction as evidenced by encephalopathy and acute respiratory failure requiring invasive mechanical ventilatory support. The patient has been successfully extubated with finalized culture still pending. The patient did develop what was likely red man syndrome when administered vancomycin. She remains on appropriate broad-spectrum antimicrobials under the discretion of infectious diseases. The patient remains hemodynamically stable. Continue local wound care. 2. Acute hypoxemic respiratory failure Resolved. The patient was ultimately intubated in the emergency department after she became more encephalopathic. CT imaging of the chest did reveal bilateral small PE. The patient remains on systemic anticoagulation with Eliquis, without complication. This will be continued without change. Her respiratory status has significantly improved. Encourage incentive spirometer use and mobilize patient as tolerated. 3. Pulmonary emboli Continue systemic anticoagulation with Eliquis. 4. History of hypertension/hyperlipidemia/obesity/rheumatoid arthritis/obstructive sleep apnea/asthma Complicates care, management, recovery and prognosis. Continue home medications as indicated. Continue as needed bronchodilator therapy. This note was generated with [employer] dictation software. It may contain incorrect words, spelling, and punctuation that were not noted in checking the note before signing. Subjective Subjective The patient was seen and examined at the bedside this morning. Events from the last 24 hours have been reviewed. The patient is currently afebrile, hemodynamically stable and maintaining appropriate oxygen saturations on room air. Hemoglobin is stable at 9.1 g/dL this morning. Chemistry profile is pending. Objective Data Objective Data The patient's most recent lab work, culture data and imaging studies have all been personally reviewed. Surface echocardiogram demonstrated normal LV size and thickness with an ejection fraction of 60%. Lower extremity Doppler study was negative for DVT. Preliminary sputum culture is demonstrating growth of staph aureus. Blood culture dated August 31 was positive for Streptococcus pyogenes. Vital Signs: Vital Signs Temp Pulse Resp BP Pulse Ox O2 Del Method O2 Flow Rate 98.9 F 80 20 H 112/70 95 Room Air 2 09/03/22 03:00 09/03/22 03:00 09/03/22 03:00 09/03/22 03:00 09/03/22 03:00 09/03/22 03:25 09/03/22 02:39 FiO2 30 09/01/22 07:00 Oxygen Flow Rate (L/min) 2 Oxygen Delivery Method Room Air Weight: 349 lb 13.977 oz Body Mass Index (BMI) 53.9 Intake & Output: Intake and Output for Last 24 Hours 09/01/22 09/02/22 09/03/22 23:59 23:59 23:59 Intake Total 2914.01 / 2914.01 2496.83 / 2696.83 350 / 350 Output Total 1974 1525 / 2150 825 / 825 Balance 939.01 / 939.01 971.83 / 546.83 -475 / -475 Lab / Micro Data Attestation: I reviewed the patient's lab results. Result Diagrams: 09/03/22 07:16 09/02/22 05:48 Labs: Laboratory Results - last 24 hr 09/02/22 05:48: Anisocytosis 2+, Microcytosis 1+ 09/02/22 07:21: POC Glucose 131 H 09/02/22 11:57: POC Glucose 110 H 09/02/22 16:21: POC Glucose 105 09/02/22 21:03: POC Glucose 116 H 09/03/22 06:10: POC Glucose 117 H Micro: Microbiology 08/31/22 15:52 Blood Culture (Wb) - Left Forearm Bacteria Detection (PCR) - Final Streptococcus pyogenes 08/31/22 15:52 Blood Culture (Wb) - Left Forearm Blood Culture - Preliminary Streptococcus pyogenes Staphylococcus epidermidis 08/31/22 23:20 Wound - Ankle Gram Stain - Final 08/31/22 23:20 Wound - Ankle Wound Culture - Preliminary Beta streptococcus Staphylococcus species 08/31/22 20:40 Sputum, Induced/Lukens Gram Stain - Final 08/31/22 20:40 Sputum, Induced/Lukens Respiratory Culture - Final Staphylococcus aureus 08/31/22 22:00 Urine Catheter - Walsh Urine Culture - Preliminary Culture exhibits no growth. Radiography Diagnostic Testing: Radiology Impression Echocardiogram 08/31/22 20:16 Interpretation Summary The left ventricular ejection fraction is 60 %. The study was technically difficult. Ordering Physician: Phylicia Hurtado Referring Physician: OJ MADDOX Performed By: Connie Martínez RCS Venous Doppler Study 09/01/22 12:43 Interpretation Summary There is no evidence of left lower extremity deep vein thrombosis. Left great saphenous vein appears patent and compressible segmentally. Calf veins difficult to visualize secondary to patient body habitus. Ordering Physician: Andrea Royal Referring Physician: Oj Maddox Performed By: Brigette Oro RVT Physical Exam Const alert, oriented x3 and no apparent distress General Appearance: cooperative Nutritional Appearance: morbidly obese HEENT normocephalic, head/scalp atraumatic and moist oral mucous membranes Eyes PERRL, EOMs intact bilaterally and conjunctivae normal Neck supple General: trachea midline and CVC in place Chest inspection of chest normal Resp normal respiratory effort Auscultation: Negative for rales, rhonchi or wheezes Cardio regular rate and regular rhythm GI normal to inspection, nondistended, normoactive bowel sounds Extremity General Extremity: amputation and edema left lower extremity Skin Skin Narrative: Wound involving distal left lower extremity, currently wrapped, with surrounding erythema. Neuro oriented x3, CN's II-XII intact bilaterally, moves all extremities and no focal motor deficits Psych cooperative and affect normal Charges/Coding Visit Charges Inpatient E&M: 62035 Subs Hosp L2
[2022-09-03 07:42] LABS: Absolute Lymphocyte Count 1.07 X10^3/uL (0.83-4.51); Absolute Neutrophil Count 4.6 X10^3/uL (2.0-7.7); Basophil# 0.03 X10^3/uL; Basophil% 0.4 % (0-1); Eosinophil# 0.33 X10^3/uL; Eosinophils% 4.8 % (0-5); Hematocrit 31.7 % (37-47); Hemoglobin 9.1 g/dL (12.0-15.0); Lymphocyte # 1.07 X10^3/ul (0.83-4.51); Lymphocyte % 15.6 % (19-41); Mean Corp Hgb Conc 28.7 g/dL (32-36); Mean Corpuscular Hgb 21.9 pg (27.0-32.0); Mean Corpuscular Volume 76.4 fL (81-99); Mean Platelet Vol. 10.5 fl (6.2-12.0); Monocyte# 0.75 X10^3/uL; Monocyte% 10.9 % (0-10); NRBC Flagged by Analyzer 0.4 % (0-5); Neutrophil # 4.58 X10^3/uL (2.7-7.7); Neutrophil % 66.6 % (47-70); POSITIVE MORPHOLOGY YES; Platelet Count 256 K/mm3 (150-450); RBC Distribution Width CV 21.2 % (11.6-14.6); RBC Distribution Width SD 58.1 fl (35.1-43.9); Red Blood Count 4.15 M/mm3 (4.2-5.4); White Blood Count 6.9 K/mm3 (4.4-11.0)
[2022-09-03 07:47] LABS: Differential Indicated SCAN CRITERIA MET
[2022-09-03 08:09] LABS: Anion Gap 4 (5-15); BUN 17 mg/dL (7-18); Calcium,Total 8.8 mg/dL (8.5-10.1); Chloride 103 mmol/L (98-107); Creatinine, Serum 0.89 mg/dL (0.55-1.02); EST Glomerular Filtration Rate 68 mL/min (>60); Est Glom Filt Rate - Afr Amer 82 mL/min (>60); Estimated Creatinine Clearance 60.57 ml/min; Glucose 114 mg/dL (74-106); Potassium 3.6 mmol/L (3.5-5.1); Sodium Level 134 mmol/L (136-145)
--- NOTE | 2022-09-03 08:18 | NURSING ---
ekg obtained assessment completed notified md of cp and intense itching
--- NOTE | 2022-09-03 08:25 | EKG12_ITS ---
Test Reason : Blood Pressure : / mmHG Vent. Rate : 074 BPM Atrial Rate : 074 BPM P-R Int : 158 ms QRS Dur : 092 ms QT Int : 394 ms P-R-T Axes : 008 -14 038 degrees QTc Int : 437 ms Normal sinus rhythm Moderate voltage criteria for LVH, may be normal variant ( R in aVL , [place] product ) Borderline ECG When compared with ECG of 31-AUG-2022 11:42, MANUAL COMPARISON REQUIRED, DATA IS UNCONFIRMED Confirmed by RASHEL BORDEN, STEWART ([id number]), editor school photograph LUZ MARINA GREY ([id number]) on 09/05/2022 12:42:21 PM Referred By: AMENA Confirmed By:STEWART KISER MD
[2022-09-03] MEDS: Losartan Potassium 100 MG Tablet PO (08:36)
[2022-09-03] MEDS: Furosemide 40 MG Tablet PO (08:36)
[2022-09-03] MEDS: Potassium Chloride Oral Tablet 20 MEQ 40 MEQ PO (08:36)
[2022-09-03] MEDS: Amitriptyline 100 MG Tablet PO (08:37)
[2022-09-03] MEDS: APIXABAN 5 MG TABLET 10 MG PO ×2 (08:37→22:09)
[2022-09-03] MEDS: Citalopram 40 MG TABLET PO (08:37)
[2022-09-03 08:43] LABS: Anisocytosis 1+; Platelet Estimate ADEQUATE (ADEQ)
[2022-09-03] MEDS: Senna/Docusate Sodium 1 Tablet 2 TABLET PO (08:43)
[2022-09-03] MEDS: Famotidine 20 MG Tablet PO (08:43)
[2022-09-03 12:35] LABS: Bedside Glucose 101 mg/dL (74-106)
[2022-09-03] MEDS: Hydrocortisone 2.5% Crm 1 APPLIC TOPICAL ×2 (12:43→22:12)
--- NOTE | 2022-09-03 13:15 | PN.HOSP_ITS ---
Subjective Subjective Patient seen and examined. She complained of generalised itching overnight. She denies any fever, chills, cough, chest pain, palpitations, dizziness, nausea, vomiting or diarrhea. Review of systems is otherwise negative. Objective Data Objective Data Vital Signs: Vital Signs Temp Pulse Resp BP Pulse Ox O2 Del Method O2 Flow Rate 97.8 F 83 18 117/75 95 Nasal Cannula 2 09/03/22 08:09 09/03/22 11:01 09/03/22 08:09 09/03/22 08:09 09/03/22 08:14 09/03/22 08:14 09/03/22 08:14 FiO2 30 09/01/22 07:00 Oxygen Flow Rate (L/min) 2 Oxygen Delivery Method Nasal Cannula Weight: 349 lb 13.977 oz Body Mass Index (BMI) 53.9 Intake & Output: Intake and Output for Last 24 Hours 09/01/22 09/02/22 09/03/22 23:59 23:59 23:59 Intake Total 2914.01 / 2914.01 2496.83 / 2696.83 400 / 400 Output Total 1974 / 1974 1525 / 2150 825 / 825 Balance 939.01 / 939.01 971.83 / 546.83 -425 / -425 Lab / Micro Data Result Diagrams: 09/03/22 07:16 09/03/22 07:16 Labs: Laboratory Results - last 24 hr 09/02/22 16:21: POC Glucose 105 09/02/22 21:03: POC Glucose 116 H 09/03/22 06:10: POC Glucose 117 H 09/03/22 07:16: WBC 6.9, RBC 4.15 L, Hgb 9.1 L, Hct 31.7 L, MCV 76.4 L, MCH 21.9 L, MCHC 28.7 L D, RDW Std Deviation 58.1 H, RDW Coeff of Naga 21.2 H, Plt Count 256, MPV 10.5, Immature Gran % (Auto) 1.700 H, Neut % (Auto) 66.6, Lymph % (Auto) 15.6 L, [place] % (Auto) 10.9 H, Eos % (Auto) 4.8, Baso % (Auto) 0.4, Absolute Neuts (auto) 4.6, Absolute Lymphs (auto) 1.07, Nucleated RBC % 0.4, Platelet Estimate ADEQUATE, Anisocytosis 1+ 09/03/22 07:16: Sodium 134 L, Potassium 3.6, Chloride 103, Carbon Dioxide 27.0, Anion Gap 4 L, BUN 17, Creatinine 0.89, Estim Creat Clear Calc 60.57, Est GFR (MDRD) Af Amer 82, Est GFR (MDRD) Non-Af 68, BUN/Creatinine Ratio 19.0, Glucose 114 H, Calcium 8.8 09/03/22 12:09: POC Glucose 101 Micro: Microbiology 08/31/22 23:20 Wound - Ankle Gram Stain - Final 08/31/22 23:20 Wound - Ankle Wound Culture - Preliminary Streptococcus group A Staphylococcus species 08/31/22 22:00 Urine Catheter - Walsh Urine Culture - Final Culture exhibits no growth. 08/31/22 15:52 Blood Culture (Wb) - Left Forearm Bacteria Detection (PCR) - Final Streptococcus pyogenes 08/31/22 15:52 Blood Culture (Wb) - Left Forearm Blood Culture - Final Streptococcus pyogenes Staphylococcus epidermidis 08/31/22 20:40 Sputum, Induced/Lukens Gram Stain - Final 08/31/22 20:40 Sputum, Induced/Lukens Respiratory Culture - Final Staphylococcus aureus Physical Exam Const alert, oriented x3 and no apparent distress HEENT head/scalp atraumatic, moist oral mucous membranes and oropharynx normal Head and Scalp: normocephalic Mouth: oral and palatal mucosa normal Eyes PERRL, EOMs intact bilaterally and conjunctivae normal Neck no lymphadenopathy and supple Resp normal respiratory effort, no retractions, no use of accessory muscles and clear to auscultation bilaterally Resp Narrative: mildly diminished breath sounds bibasally, no wheezes or crackles. 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 Skin Skin Narrative: mildly erythematous rash over her back, pruritic Neuro oriented x3, CN's II-XII intact bilaterally, moves all extremities and no focal motor deficits Sensorium / Orientation: awake and alert Speech: speech normal Motor Exam: strength 5/5 throughout Psych affect normal Assessment & Plan Assessment/Plan (1) Hypoxia: (2) Bilateral pulmonary embolism: (3) Cellulitis of left lower extremity: (4) Sepsis: PLAN: Plan #Acute hypoxic respiratory failure * due to bilateral PE and staph pneumonia * CTA chest showed small bilateral PE * titrate oxyen to maintain sats >90% * was intubated on day of admission, and now extubated * on IV zosyn; clindamycin dc'd per ID * #Sepsis due to RLE cellulitis and pneumonia * on IV zosyn. she developed michael syndrome after she took vancomycin * ID on board; clindamycin dc'd * blood cultures growing gram positive cocci * wbc today is 6.9 * #BIlateral PE:on eliquis. DUplex of her lower extremities showed no evidence of DVT #Hypertension: on valsartan and lasix #Hypokalemia:resolved. K is 3.6 #ANxiety and depression: on amitryptiline and escitalopram #RHeumatoid arthritis: on steroids #GERD: on PPI DVT prophylaxis: on eliquis for DVT Disposition: for likely dc tomorrow Charges/Coding Visit Charges Inpatient E&M: 89360 Subs Hosp L2
[2022-09-03] MEDS: Nystatin Powder 15gm Bottle 1 APPLIC TOPICAL ×2 (14:11→22:09)
[2022-09-03 16:35] LABS: Bedside Glucose 132 mg/dL (74-106)
[2022-09-03] MEDS: Pramipexole Di-HCl 1 MG Tablet 3 MG PO (22:09)
[2022-09-03 22:25] LABS: Bedside Glucose 122 mg/dL (74-106)
[2022-09-04] VITALS (11 sets, daily range): BP systolic 117–141; BP diastolic 57–78; PULSE 74–96; RESP 16–20; TEMP 36.5–36.8; O2SAT 94–97
[2022-09-04] MEDS: Hydrocortisone 2.5% Crm 1 APPLIC TOPICAL ×2 (03:51→09:27)
[2022-09-04] MEDS: Nystatin Powder 15gm Bottle 1 APPLIC TOPICAL ×3 (06:17→21:09)
[2022-09-04 06:39] LABS: Absolute Lymphocyte Count 1.26 X10^3/uL (0.83-4.51); Absolute Neutrophil Count 4.1 X10^3/uL (2.0-7.7); Basophil# 0.04 X10^3/uL; Basophil% 0.6 % (0-1); Eosinophil# 0.45 X10^3/uL; Eosinophils% 6.4 % (0-5); Hematocrit 31.5 % (37-47); Hemoglobin 9.4 g/dL (12.0-15.0); Lymphocyte # 1.26 X10^3/ul (0.83-4.51); Lymphocyte % 17.9 % (19-41); Mean Corp Hgb Conc 29.8 g/dL (32-36); Mean Corpuscular Hgb 22.9 pg (27.0-32.0); Mean Corpuscular Volume 76.6 fL (81-99); Monocyte% 14.2 % (0-10); NRBC Flagged by Analyzer 0 % (0-5); Neutrophil # 4.13 X10^3/uL (2.7-7.7); Neutrophil % 58.5 % (47-70); POSITIVE MORPHOLOGY YES; Platelet Count 260 K/mm3 (150-450); RBC Distribution Width CV 21.2 % (11.6-14.6); RBC Distribution Width SD 58.1 fl (35.1-43.9); Red Blood Count 4.11 M/mm3 (4.2-5.4); White Blood Count 7.1 K/mm3 (4.4-11.0)
[2022-09-04 06:46] LABS: Bedside Glucose 99 mg/dL (74-106)
[2022-09-04 06:52] LABS: Differential Indicated SCAN CRITERIA MET
[2022-09-04 07:03] LABS: Anisocytosis 2+; Microcytosis 1+
[2022-09-04 07:06] LABS: Anion Gap 4 (5-15); BUN 14 mg/dL (7-18); Calcium,Total 8.8 mg/dL (8.5-10.1); Chloride 102 mmol/L (98-107); Creatinine, Serum 0.88 mg/dL (0.55-1.02); EST Glomerular Filtration Rate 69 mL/min (>60); Est Glom Filt Rate - Afr Amer 84 mL/min (>60); Estimated Creatinine Clearance 61.26 ml/min; Glucose 103 mg/dL (74-106); Potassium 3.6 mmol/L (3.5-5.1); Sodium Level 134 mmol/L (136-145)
[2022-09-04] MEDS: Acetaminophen 325 MG Tablet 650 MG PO ×2 (07:50→21:17)
[2022-09-04] MEDS: oxyCODONE 5 MG Tablet PO ×2 (07:50→21:16)
[2022-09-04] MEDS: Potassium Chloride Oral Tablet 20 MEQ 40 MEQ PO (07:51)
[2022-09-04] MEDS: APIXABAN 5 MG TABLET 10 MG PO ×2 (09:25→21:09)
[2022-09-04] MEDS: Losartan Potassium 100 MG Tablet PO (09:25)
[2022-09-04] MEDS: Furosemide 40 MG Tablet PO (09:25)
[2022-09-04] MEDS: Citalopram 40 MG TABLET PO (09:26)
[2022-09-04] MEDS: Famotidine 20 MG Tablet PO ×2 (09:39→21:10)
[2022-09-04 11:45] LABS: Bedside Glucose 125 mg/dL (74-106)
[2022-09-04] MEDS: 0.9% Saline Lock 10 ML Syringe IV (13:18)
[2022-09-04] MEDS: Cephalexin 500 MG Capsule PO ×2 (13:18→21:09)
--- NOTE | 2022-09-04 13:25 | PCM.PN.INT ---
Assessment & Plan Assessment/Plan (1) Sepsis: PLAN: Plan RECOMMENDATIONS: 1. Continue antimicrobials per ID recommendations. 2. Encourage incentive spirometer use while in bed. 3. Continue Eliquis as ordered 4. Continue bronchodilator therapy. 5. Continue nocturnal Pap therapy per home regimen. 6. Hemodynamically stable on room air. Will sign off from a critical care perspective IMPRESSIONS: 1. Sepsis The patient presented with sepsis due to lower extremity cellulitis with acute sepsis related organ dysfunction as evidenced by encephalopathy and acute respiratory failure requiring invasive mechanical ventilatory support. The patient has been successfully extubated with finalized culture still pending. The patient did develop what was likely red man syndrome when administered vancomycin. She remains on appropriate broad-spectrum antimicrobials under the discretion of infectious diseases. The patient remains hemodynamically stable. Continue local wound care. Patient appears to be responding well to current therapy with regression of erythema. Defer to infectious disease and hospitalist, the patient is currently hemodynamically stable on room air. Will sign off from a critical care perspective. 2. Acute hypoxemic respiratory failure Resolved. The patient was ultimately intubated in the emergency department after she became more encephalopathic. CT imaging of the chest did reveal bilateral small PE. The patient remains on systemic anticoagulation with Eliquis, without complication. This will be continued without change. Her respiratory status has significantly improved. Encourage incentive spirometer use and mobilize patient as tolerated. Patient back to baseline. 3. Pulmonary emboli Continue systemic anticoagulation with Eliquis. 4. History of hypertension/hyperlipidemia/obesity/rheumatoid arthritis/obstructive sleep apnea/asthma Complicates care, management, recovery and prognosis. Continue home medications as indicated. Continue as needed bronchodilator therapy. Subjective Subjective Patient did okay overnight from a hemodynamic standpoint. Patient did report significant body aches this morning. Patient states her lower extremity is less painful than previous. Patient also believes that the swelling is improved. Objective Data Objective Data Vital Signs: Vital Signs Temp Pulse Resp BP Pulse Ox O2 Del Method O2 Flow Rate 36.8 C 90 16 141/57 H 94 Room Air 2 09/04/22 11:38 09/04/22 11:46 09/04/22 11:38 09/04/22 11:38 09/04/22 11:38 09/04/22 11:38 09/03/22 08:14 FiO2 30 09/01/22 07:00 Oxygen Flow Rate (L/min) 2 Oxygen Delivery Method Room Air Weight: 158.8 kg Body Mass Index (BMI) 53.9 Intake & Output: Intake and Output for Last 24 Hours 09/02/22 09/03/22 09/04/22 23:59 23:59 23:59 Intake Total 2496.83 / 2696.83 1005 / 1005 925 / 925 Output Total 1525 / 2150 2175 / 2175 725 / 725 Balance 971.83 / 546.83 -1170 / -1170 200 / 200 Lab / Micro Data Attestation: I reviewed the patient's lab results. Result Diagrams: 09/04/22 06:25 09/04/22 06:25 Labs: Laboratory Results - last 24 hr 09/03/22 16:07: POC Glucose 132 H 09/03/22 21:57: POC Glucose 122 H 09/04/22 06:16: POC Glucose 99 09/04/22 06:25: WBC 7.1, RBC 4.11 L, Hgb 9.4 L, Hct 31.5 L, MCV 76.6 L, MCH 22.9 L, MCHC 29.8 L, RDW Std Deviation 58.1 H, RDW Coeff of Naga 21.2 H, Plt Count 260, MPV 10.0, Immature Gran % (Auto) 2.400 H, Neut % (Auto) 58.5, Lymph % (Auto) 17.9 L, [place] % (Auto) 14.2 H, Eos % (Auto) 6.4 H, Baso % (Auto) 0.6, Absolute Neuts (auto) 4.1, Absolute Lymphs (auto) 1.26, Nucleated RBC % 0, Anisocytosis 2+, Microcytosis 1+ 09/04/22 06:25: Sodium 134 L, Potassium 3.6, Chloride 102, Carbon Dioxide 28.0, Anion Gap 4 L, BUN 14, Creatinine 0.88, Estim Creat Clear Calc 61.26, Est GFR (MDRD) Af Amer 84, Est GFR (MDRD) Non-Af 69, BUN/Creatinine Ratio 16.0, Glucose 103, Calcium 8.8 09/04/22 11:01: POC Glucose 125 H Micro: Microbiology 08/31/22 23:20 Wound - Ankle Gram Stain - Final 08/31/22 23:20 Wound - Ankle Wound Culture - Final Streptococcus group A Staphylococcus aureus 08/31/22 17:35 Blood Culture (Wb) - Central Line Blood Culture - Preliminary No growth in 48 hours. 08/31/22 22:00 Urine Catheter - Walsh Urine Culture - Final Culture exhibits no growth. 08/31/22 15:52 Blood Culture (Wb) - Left Forearm Bacteria Detection (PCR) - Final Streptococcus pyogenes 08/31/22 15:52 Blood Culture (Wb) - Left Forearm Blood Culture - Final Streptococcus pyogenes Staphylococcus epidermidis 08/31/22 20:40 Sputum, Induced/Lukens Gram Stain - Final 08/31/22 20:40 Sputum, Induced/Lukens Respiratory Culture - Final Staphylococcus aureus Physical Exam Const alert, oriented x3 and no apparent distress Constitutional Narrative: No conversational dyspnea General Appearance: cooperative Nutritional Appearance: morbidly obese HEENT normocephalic, head/scalp atraumatic and moist oral mucous membranes Eyes PERRL, EOMs intact bilaterally and conjunctivae normal Neck supple Neck Narrative: Central line is clean, dry and intact General: trachea midline and CVC in place Chest inspection of chest normal Resp normal respiratory effort and no use of accessory muscles Auscultation: Negative for rales, rhonchi or wheezes Cardio regular rate, regular rhythm, S1 normal heart sound, S2 normal heart sound and no murmurs GI normal to inspection, nondistended, normoactive bowel sounds Extremity Extremity Narrative: Right BKA. Prosthesis in place. General Extremity: amputation and edema left lower extremity Skin Skin Narrative: Wound involving distal left lower extremity, currently wrapped, with surrounding erythema. Neuro oriented x3, CN's II-XII intact bilaterally, moves all extremities and no focal motor deficits Psych cooperative and affect normal Charges/Coding Visit Charges Inpatient E&M: 52106 Subs Hosp L2
--- NOTE | 2022-09-04 13:40 | PCM.PN.ID ---
Physical Exam Narrative Feeling better, no fever, no n/v/d, leg improved Const alert and no apparent distress Resp normal air movement and clear to auscultation bilaterally Cardio regular rate and regular rhythm GI soft to palpation, non-tender and non-distended Extremity General Extremity: edema Skin Skin Narrative: LLE wrapped ID ID: Route of nutrition/ use of supplements: [] Nutritional Intake: [] IV Site: [] Walsh Catheter: [] Assessment & Plan Assessment/Plan (1) Sepsis: PLAN: LLE cellulitis. Single Bcx with GAS and CoNS. Sputum with MSSA. Nares pcr with mssa. Had reported Red Man with vanc. No sign of recurrent necrotizing fasciitis at this time. Doppler neg for DVT. Leg much improved, feeling better. Will narrow zosyn to keflex, plan on 5 more days, 500mg tid. will follow as needed, please call with any new issues (2) Cellulitis of left lower extremity: (3) Bilateral pulmonary embolism:
--- NOTE | 2022-09-04 14:27 | WOUNDNOTE ---
wound photo: left lower leg
--- NOTE | 2022-09-04 14:28 | WOUNDNOTE ---
wound photo: left lateral ankle
[2022-09-04 15:56] LABS: Bedside Glucose 118 mg/dL (74-106)
--- NOTE | 2022-09-04 17:44 | PN.HOSP_ITS ---
Subjective Subjective Reports she has a headache and does not feel very well today. Continues to have a rash on her back. Breathing unchanged, no chest pain. Left leg she feels has improving swelling and still hurts but also feels this is improving Objective Data Objective Data Vital Signs: Vital Signs Temp Pulse Resp BP Pulse Ox O2 Del Method O2 Flow Rate 98.2 F 96 16 117/70 95 Room Air 2 09/04/22 15:03 09/04/22 15:08 09/04/22 15:03 09/04/22 15:03 09/04/22 15:03 09/04/22 15:03 09/03/22 08:14 FiO2 30 09/01/22 07:00 Oxygen Flow Rate (L/min) 2 Oxygen Delivery Method Room Air Weight: 158.8 kg Body Mass Index (BMI) 53.9 Intake & Output: Intake and Output for Last 24 Hours 09/02/22 09/03/22 09/04/22 23:59 23:59 23:59 Intake Total 2496.83 / 2696.83 1005 / 1005 1525 / 1525 Output Total 1525 / 2150 2175 / 2175 725 / 725 Balance 971.83 / 546.83 -1170 / -1170 800 / 800 Lab / Micro Data Result Diagrams: 09/04/22 06:25 09/04/22 06:25 Labs: Laboratory Results - last 24 hr 09/03/22 21:57: POC Glucose 122 H 09/04/22 06:16: POC Glucose 99 09/04/22 06:25: WBC 7.1, RBC 4.11 L, Hgb 9.4 L, Hct 31.5 L, MCV 76.6 L, MCH 22.9 L, MCHC 29.8 L, RDW Std Deviation 58.1 H, RDW Coeff of Naga 21.2 H, Plt Count 260, MPV 10.0, Immature Gran % (Auto) 2.400 H, Neut % (Auto) 58.5, Lymph % (Auto) 17.9 L, [place] % (Auto) 14.2 H, Eos % (Auto) 6.4 H, Baso % (Auto) 0.6, Absolute Neuts (auto) 4.1, Absolute Lymphs (auto) 1.26, Nucleated RBC % 0, Anisocytosis 2+, Microcytosis 1+ 09/04/22 06:25: Sodium 134 L, Potassium 3.6, Chloride 102, Carbon Dioxide 28.0, Anion Gap 4 L, BUN 14, Creatinine 0.88, Estim Creat Clear Calc 61.26, Est GFR (MDRD) Af Amer 84, Est GFR (MDRD) Non-Af 69, BUN/Creatinine Ratio 16.0, Glucose 103, Calcium 8.8 09/04/22 11:01: POC Glucose 125 H 09/04/22 15:35: POC Glucose 118 H Micro: Microbiology 08/31/22 23:20 Wound - Ankle Gram Stain - Final 08/31/22 23:20 Wound - Ankle Wound Culture - Final Streptococcus group A Staphylococcus aureus 08/31/22 17:35 Blood Culture (Wb) - Central Line Blood Culture - Preliminary No growth in 48 hours. 08/31/22 22:00 Urine Catheter - Walsh Urine Culture - Final Culture exhibits no growth. 08/31/22 15:52 Blood Culture (Wb) - Left Forearm Bacteria Detection (PCR) - Final Streptococcus pyogenes 08/31/22 15:52 Blood Culture (Wb) - Left Forearm Blood Culture - Final Streptococcus pyogenes Staphylococcus epidermidis 08/31/22 20:40 Sputum, Induced/Lukens Gram Stain - Final 08/31/22 20:40 Sputum, Induced/Lukens Respiratory Culture - Final Staphylococcus aureus Physical Exam Const alert General Appearance: cooperative and comfortable HEENT normocephalic and head/scalp atraumatic Eyes EOMs intact bilaterally Neck supple Resp normal respiratory effort Resp Narrative: Difficult to auscultate secondary to body habitus Cardio regular rate and regular rhythm GI soft to palpation, non-tender and non-distended Extremity Extremity Narrative: Right lower extremity amputation, left leg with marked where there was cellulitis, some nonpitting edema, very mild warmth Skin Skin Narrative: left leg with marked where there was cellulitis, some nonpitting edema, very mild warmth, fine red rash over back Neuro Neuro Narrative: No overt deficits appreciated Psych affect normal Assessment & Plan Assessment/Plan (1) Hypoxia: (2) Bilateral pulmonary embolism: (3) Cellulitis of left lower extremity: (4) Sepsis: PLAN: Plan #Acute hypoxic respiratory failure * due to bilateral PE and staph pneumonia * CTA chest showed small bilateral PE * titrate oxyen to maintain sats >90% * was intubated on day of admission, and now extubated * Now on Keflex with plan for 5 more days of 500 3 times daily per ID * #Sepsis due to RLE cellulitis and pneumonia * Status post Zosyn, now on Keflex, developed red man syndrome with bank. Clindamycin DC'd * blood cultures growing gram positive cocci #BIlateral PE:on eliquis. DUplex of her lower extremities showed no evidence of DVT #Hypertension: on valsartan and lasix #Hypokalemia:resolved #ANxiety and depression: on amitryptiline and escitalopram #RHeumatoid arthritis: on steroids #GERD: on PPI DVT prophylaxis: on eliquis for DVT Charges/Coding Visit Charges Inpatient E&M: 45338 Subs Hosp L2
[2022-09-04] MEDS: Pramipexole Di-HCl 1 MG Tablet 3 MG PO (21:09)
[2022-09-04] MEDS: Amitriptyline 100 MG Tablet PO (21:09)
[2022-09-04] MEDS: guaiFENesin 10 ML UDC (200MG/10ML) 20 ML PO (21:16)
[2022-09-04] MEDS: DiphenhydrAMINE 25 MG Capsule PO (21:17)
[2022-09-04 23:51] LABS: Bedside Glucose 130 mg/dL (74-106)
[2022-09-05] VITALS (8 sets, daily range): BP systolic 117–147; BP diastolic 66–87; PULSE 80–96; RESP 16–20; TEMP 36.4–36.9; O2SAT 92–99
[2022-09-05] MEDS: Nystatin Powder 15gm Bottle 1 APPLIC TOPICAL (06:19)
[2022-09-05] MEDS: Cephalexin 500 MG Capsule PO ×2 (06:19→13:23)
[2022-09-05 06:34] LABS: Absolute Lymphocyte Count 1.62 X10^3/uL (0.83-4.51); Absolute Neutrophil Count 3.9 X10^3/uL (2.0-7.7); Basophil# 0.08 X10^3/uL; Basophil% 1.1 % (0-1); Eosinophil# 0.44 X10^3/uL; Hematocrit 32.7 % (37-47); Hemoglobin 9.8 g/dL (12.0-15.0); Lymphocyte # 1.62 X10^3/ul (0.83-4.51); Mean Corpuscular Hgb 22.9 pg (27.0-32.0); Mean Corpuscular Volume 76.4 fL (81-99); Mean Platelet Vol. 10.3 fl (6.2-12.0); Monocyte% 13.6 % (0-10); NRBC Flagged by Analyzer 0 % (0-5); Neutrophil # 3.92 X10^3/uL (2.7-7.7); Neutrophil % 53.4 % (47-70); POSITIVE MORPHOLOGY YES; Platelet Count 266 K/mm3 (150-450); RBC Distribution Width CV 21.2 % (11.6-14.6); RBC Distribution Width SD 57.6 fl (35.1-43.9); Red Blood Count 4.28 M/mm3 (4.2-5.4); White Blood Count 7.4 K/mm3 (4.4-11.0)
[2022-09-05 06:41] LABS: Differential Indicated SCAN CRITERIA MET
[2022-09-05] MEDS: guaiFENesin 10 ML UDC (200MG/10ML) 20 ML PO ×2 (06:42→14:09)
[2022-09-05 06:55] LABS: Bedside Glucose 104 mg/dL (74-106)
[2022-09-05 07:08] LABS: Anion Gap 5 (5-15); Anisocytosis 1+; BUN 10 mg/dL (7-18); Chloride 102 mmol/L (98-107); Creatinine, Serum 0.77 mg/dL (0.55-1.02); Differential Comment SCANNED; EST Glomerular Filtration Rate 80 mL/min (>60); Est Glom Filt Rate - Afr Amer 97 mL/min (>60); Estimated Creatinine Clearance 70.01 ml/min; Glucose 111 mg/dL (74-106); Microcytosis 1+; Potassium 3.9 mmol/L (3.5-5.1); Sodium Level 135 mmol/L (136-145)
[2022-09-05] MEDS: Famotidine 20 MG Tablet PO (09:26)
[2022-09-05] MEDS: Potassium Chloride Oral Tablet 20 MEQ 40 MEQ PO (09:26)
[2022-09-05] MEDS: Losartan Potassium 100 MG Tablet PO (09:26)
[2022-09-05] MEDS: Citalopram 40 MG TABLET PO (09:27)
[2022-09-05] MEDS: APIXABAN 5 MG TABLET 10 MG PO (09:27)
[2022-09-05] MEDS: Furosemide 40 MG Tablet PO (09:27)
[2022-09-05 12:11] LABS: Bedside Glucose 107 mg/dL (74-106)
--- NOTE | 2022-09-05 12:17 | PCM.DC ---
Discharge Instructions Diet Discharge Diet: No restrictions Activity Discharge Activity: Return to Normal Activity (Return to normal activity as tolerated) Follow Up Care Test Results: Test results from this visit will be discussed in further detail at your follow-up appointment, if applicable. Discharge Plan Admission Admit Date/Time: 08/31/22 16:08 Primary Reason for Your Visit: shortness of breath Attending Provider: Kelsey Lima Primary Care Provider: Butch Maddox TERRITORY OUTSIDE SALES MANAGER Consulting Providers: Phylicia Hurtado ; Andrea Royal ; Ventura Lo ; Mag Cantu Instructions Patient Instructions: Cellulitis Dc, Embolism Pulmonary Dc Additional Instructions / Restrictions: *Please take this with you to your next doctors appointment* ?You will need to take 1 dose of 10 mg of Eliquis this evening and 5 more days of 10 mg of Eliquis twice daily and thereafter you will take 5 mg twice a day ?You will need to take Keflex 3 times daily, you will take 1 more dose on 09/05/2022 followed by 4 more days. ? These medications were sent to the [facility] in [place] per your preference ?You additionally had hydrocortisone cream sent to the pharmacy for itching in your back ?Please continue to follow with the physician you establish with for your necrotizing fasciitis ?Now that you are on blood thinners, it is advisable to avoid NSAIDs like meloxicam. You can take Tylenol for pain control as directed ?Continue all other home medications -Please call your primary care provider's office upon discharge to schedule a hospital follow up within 1 week. -For any concerning signs or symptoms please call 911 or proceed to the nearest emergency department Discharge Orders/Prescriptions Prescriptions: New apixaban 5 mg tablet See Rx Instructions .ROUTE .COMPLEX 35 Days Qty: 82 0RF Rx Instructions: Take 2 tabs (10mg) tonight and for 5 more days followed by one tab twice daily cephalexin 500 mg Capsule 500 mg PO Q8 4 Days Qty: 13 0RF Rx Instructions: Take 1 dose tonight and then three times daily for 4 more days hydrocortisone 2.5 % Cream 1 applic topical TID PRN PRN (Reason: itching back) Qty: 20 0RF Protocol: *Topical Application Instructions APPLICATION INSTRUCTIONS: apply to back Continued albuterol sulfate 90 mcg/actuation HFA aerosol inhaler 2 puff inhalation Q6H PRN (Reason: shortness of breath or wheezing) Qty: 8.5 6RF Rx Instructions: administer with spacer furosemide 40 MG tablet 40 mg PO BID PRN (Reason: fluid overload) Label Comments: prn fluid overload citalopram 40 MG tablet 40 mg PO DAILY potassium chloride 20 MEQ tablet 40 meq PO DAILY oxycodone-acetaminophen 1 TABLET tablet 2 tab PO QHS PRN PRN (Reason: Pain) valsartan 320 mg tablet 320 mg PO DAILY omeprazole 40 mg capsule,delayed release(DR/EC) 40 mg PO DAILY pramipexole 1.5 mg tablet 3 mg PO QHS cyclobenzaprine 10 MG tablet 10 mg PO QHS PRN (Reason: muscle spasm) Qty: 0 0RF Label Comments: muscle relaxer famotidine 20 mg Tablet 20 mg PO BID amitriptyline 100 mg tablet 100 mg PO DAILY cholecalciferol (vitamin D3) 1,250 mcg (50,000 unit) capsule 1,250 mcg PO MO Label Comments: TAKE 1 CAPSULE BY MOUTH EVERY WEEK Discontinued meloxicam 7.5 MG tablet 7.5 mg PO BID PRN (Reason: KNEE PAIN) Qty: 0 0RF Label Comments: ARTHRITIS Referrals / Follow Up: Butch Maddox TERRITORY OUTSIDE SALES MANAGER, TERRITORY OUTSIDE SALES MANAGER-C [Primary Care Provider] - Within 1 Week Disposition Disposition (needs filled in before D/C Order can be placed): Home Health Service
--- NOTE | 2022-09-05 12:36 | PCM.DC.SUM ---
Providers Date of Admission: 08/31/22 Date of Discharge: 09/05/22 Primary Care Physician: Butch Maddox, BUILDING MAINTENANCE MECHANIC-C Consultations 08/31/22 20:16 Consult: Conveyor Mechanic / Pulmonary Medicine Routine Consulting Provider: Ventura Lo Reason for Consult: Resp failure, BL PE, LLE cellulitis. EMERGENT Consult: No MD Notified: Yes Date Notified: 08/31/22 Time Notified: 18:37 Method of Notification: Text 09/01/22 10:21 Consult: Onc/Wound/underwear finisher Routine Comment: Reason for Consult:: L lower leg/lat ankle wounds 09/01/22 11:53 Consult: Infectious Disease Routine Consulting Provider: Andrea Royal Reason for Consult: bacteremia EMERGENT Consult: No MD Notified: Yes Date Notified: 09/01/22 Time Notified: 11:53 Method of Notification: Verbal Reason For Visit: LLE CELLULITIS, BL PE Diagnosis Discharge Diagnosis (1) Hypoxia: Status: Acute Code(s): R09.02 - Hypoxemia (2) Bilateral pulmonary embolism: Status: Acute Code(s): I26.99 - Other pulmonary embolism without acute cor pulmonale (3) Cellulitis of left lower extremity: Status: Acute Code(s): L03.116 - Cellulitis of left lower limb (4) Sepsis: Status: Acute Code(s): A41.9 - Sepsis, unspecified organism Plan #Acute hypoxic respiratory failure #Sepsis due to LLE cellulitis and pneumonia #Bilateral PE #Hypertension #Hypokalemia:resolved #ANxiety and depression #GERD Medications at Discharge Home Medications furosemide 40 mg tablet 40 mg PO BID PRN fluid overload 06/13/17 citalopram 40 mg tablet 40 mg PO DAILY depression 08/25/18 potassium chloride 20 mEq tablet,extended release(part/cryst) 40 meq PO DAILY supplement 11/01/18 oxycodone-acetaminophen 5 mg-325 mg tablet 2 tab PO QHS PRN PRN Pain 09/20/19 albuterol sulfate 90 mcg/actuation aerosol inhaler 2 puff inhalation Q6H PRN shortness of breath or wheezing #8.5 grams 05/11/21 valsartan 320 mg tablet 320 mg PO DAILY heart 05/19/21 omeprazole 40 mg capsule,delayed release 40 mg PO DAILY gerd 06/15/21 pramipexole 1.5 mg tablet 3 mg PO QHS rls 06/15/21 cyclobenzaprine 10 mg tablet 10 mg PO QHS PRN muscle spasm #0 tabs 03/09/22 amitriptyline 100 mg tablet 100 mg PO DAILY PAIN AND SLEEP 08/31/22 cholecalciferol (vitamin D3) 1,250 mcg (50,000 unit) capsule 1,250 mcg PO MO SUPPLEMENT 08/31/22 famotidine 20 mg tablet 20 mg PO BID GERD 08/31/22 apixaban 5 mg tablet See Rx Instructions .Route .COMPLEX 35 days #82 tabs 09/05/22 cephalexin 500 mg capsule 500 mg PO Q8 4 days #13 caps 09/05/22 hydrocortisone 2.5 % topical cream 1 applic topical TID PRN PRN itching back #20 grams 09/05/22 Hospital Course Procedures 2-D Echocardiogram, Central line placement and Intubation Summary of Care Provided Minutes Spent on Discharge: 32 Hospital Course: The patient is a 62 y/o F w/ PMHx: Chronic anemia/Fe deficiency anemia, HTN, HLD, FAY on BIPAP, Asthma, GERD, Anxiety and Depression, Rheumatoid arthritis, RLS, Former tobacco use, Morbid obesity who presents to the [facility] ED on 08/31/22 with history of dyspnea noted to be waxing and waning to some degree but continuous, worse with exertion with associated orthopnea and severely worsened when she attempts to lay flat or does exert her self with cough although nonproductive and ongoing continuous chest pressure for the last several weeks but worsened over the last couple days reporting she can only walk 5 to 10 feet and by this point would be gasping for air prompting eventual ED evaluation. She was found to have acute hypoxic respiratory failure secondary to bilateral pulmonary embolisms which were acute as well as left lower extremity cellulitis with encephalopathy. Had been given Zosyn and clinda as she had had a significant red man syndrome reaction to vancomycin. Infectious disease was consulted as well as the ICU team as she became progressively more encephalopathic in the ED and required intubation and also was diagnosed with sepsis secondary to the left lower extremity cellulitis. She was on heparin for her PEs and was transitioned to Eliquis. For her encephalopathy, sepsis, and hypoxemic respiratory failure she was found to have not only the left lower extremity cellulitis but also pneumonia and she had a single blood culture with group A strep and coag negative staph as well as sputum with MSSA. Ultimately she improved with antibiotics and she was extubated. She continued to improve and her antibiotics for de-escalated to Keflex 500 mg 3 times daily. On the day of discharge she reported feeling much better, left leg pain and swelling better, breathing roughly the same. Denied other complaints. Instructions provided for patient as below: *Please take this with you to your next doctors appointment* ?You will need to take 1 dose of 10 mg of Eliquis this evening and 5 more days of 10 mg of Eliquis twice daily and thereafter you will take 5 mg twice a day ?You will need to take Keflex 3 times daily, you will take 1 more dose on 09/05/2022 followed by 4 more days. ? These medications were sent to the [facility] in [place] per your preference ?You additionally had hydrocortisone cream sent to the pharmacy for itching in your back ?Please continue to follow with the physician you establish with for your necrotizing fasciitis ?Now that you are on blood thinners, it is advisable to avoid NSAIDs like meloxicam. You can take Tylenol for pain control as directed ?Continue all other home medications -Please call your primary care provider's office upon discharge to schedule a hospital follow up within 1 week. 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, left leg wrapped, no significant erythema extending beyond wrap Skin Skin Narrative: Left leg wrapped, nonpitting edema Neuro Neuro Narrative: No overt focal neurological deficits appreciated Psych affect normal Weight / BMI Weight Weight: 159.6 kg Body Mass Index (BMI) 53.9 ABG / Lab / Microbiology Data Result Diagrams: 09/05/22 06:08 09/05/22 06:08 Laboratory: Laboratory Results - last 24 hr 09/04/22 15:35: POC Glucose 118 H 09/04/22 21:05: POC Glucose 130 H 09/05/22 06:08: WBC 7.4, RBC 4.28, Hgb 9.8 L, Hct 32.7 L, MCV 76.4 L, MCH 22.9 L, MCHC 30.0 L, RDW Std Deviation 57.6 H, RDW Coeff of Naga 21.2 H, Plt Count 266, MPV 10.3, Immature Gran % (Auto) 3.900 H, Neut % (Auto) 53.4, Lymph % (Auto) 22.0, Colbert % (Auto) 13.6 H, Eos % (Auto) 6.0 H, Baso % (Auto) 1.1 H, Absolute Neuts (auto) 3.9, Absolute Lymphs (auto) 1.62, Nucleated RBC % 0, Differential Comment SCANNED, Anisocytosis 1+, Microcytosis 1+ 09/05/22 06:08: Sodium 135 L, Potassium 3.9, Chloride 102, Carbon Dioxide 28.0, Anion Gap 5, BUN 10, Creatinine 0.77, Estim Creat Clear Calc 70.01, Est GFR (MDRD) Af Amer 97, Est GFR (MDRD) Non-Af 80, BUN/Creatinine Ratio 13.0, Glucose 111 H, Calcium 9.0 09/05/22 06:18: POC Glucose 104 09/05/22 11:46: POC Glucose 107 H Microbiology: Microbiology 08/31/22 23:20 Wound - Ankle Gram Stain - Final 08/31/22 23:20 Wound - Ankle Wound Culture - Final Streptococcus group A Staphylococcus aureus 08/31/22 17:35 Blood Culture (Wb) - Central Line Blood Culture - Preliminary No growth in 48 hours. 08/31/22 22:00 Urine Catheter - Walsh Urine Culture - Final Culture exhibits no growth. 08/31/22 15:52 Blood Culture (Wb) - Left Forearm Bacteria Detection (PCR) - Final Streptococcus pyogenes 08/31/22 15:52 Blood Culture (Wb) - Left Forearm Blood Culture - Final Streptococcus pyogenes Staphylococcus epidermidis 08/31/22 20:40 Sputum, Induced/Lukens Gram Stain - Final 08/31/22 20:40 Sputum, Induced/Lukens Respiratory Culture - Final Staphylococcus aureus D/C Instructions Discharge Diet: No restrictions Meaningful Use Info Meaningful Use Diagnoses (Choose all that apply): VTE VTE Anticoag overlap given w/in hospital stay or rx'd at dc?: Yes Pt receive overlap for 5 days?: Yes Discharge Plan Admission Admit Date/Time: 08/31/22 16:08 Primary Reason for Your Visit: shortness of breath Attending Provider: Kelsey Lima Primary Care Provider: Butch Maddox BUILDING MAINTENANCE MECHANIC Consulting Providers: Phylicia Hurtado ; Andrea Royal ; Ventura Lo ; Mag Cantu Instructions Patient Instructions: Cellulitis Dc, Embolism Pulmonary Dc Additional Instructions / Restrictions: *Please take this with you to your next doctors appointment* ?You will need to take 1 dose of 10 mg of Eliquis this evening and 5 more days of 10 mg of Eliquis twice daily and thereafter you will take 5 mg twice a day ?You will need to take Keflex 3 times daily, you will take 1 more dose on 09/05/2022 followed by 4 more days. ? These medications were sent to the [facility] in [place] per your preference ?You additionally had hydrocortisone cream sent to the pharmacy for itching in your back ?Please continue to follow with the physician you establish with for your necrotizing fasciitis ?Now that you are on blood thinners, it is advisable to avoid NSAIDs like meloxicam. You can take Tylenol for pain control as directed ?Continue all other home medications -Please call your primary care provider's office upon discharge to schedule a hospital follow up within 1 week. -For any concerning signs or symptoms please call 911 or proceed to the nearest emergency department Discharge Orders/Prescriptions Prescriptions: New apixaban 5 mg tablet See Rx Instructions .ROUTE .COMPLEX 35 Days Qty: 82 0RF Rx Instructions: Take 2 tabs (10mg) tonight and for 5 more days followed by one tab twice daily cephalexin 500 mg Capsule 500 mg PO Q8 4 Days Qty: 13 0RF Rx Instructions: Take 1 dose tonight and then three times daily for 4 more days hydrocortisone 2.5 % Cream 1 applic topical TID PRN PRN (Reason: itching back) Qty: 20 0RF Protocol: *Topical Application Instructions APPLICATION INSTRUCTIONS: apply to back Continued albuterol sulfate 90 mcg/actuation HFA aerosol inhaler 2 puff inhalation Q6H PRN (Reason: shortness of breath or wheezing) Qty: 8.5 6RF Rx Instructions: administer with spacer furosemide 40 MG tablet 40 mg PO BID PRN (Reason: fluid overload) Label Comments: prn fluid overload citalopram 40 MG tablet 40 mg PO DAILY potassium chloride 20 MEQ tablet 40 meq PO DAILY oxycodone-acetaminophen 1 TABLET tablet 2 tab PO QHS PRN PRN (Reason: Pain) valsartan 320 mg tablet 320 mg PO DAILY omeprazole 40 mg capsule,delayed release(DR/EC) 40 mg PO DAILY pramipexole 1.5 mg tablet 3 mg PO QHS cyclobenzaprine 10 MG tablet 10 mg PO QHS PRN (Reason: muscle spasm) Qty: 0 0RF Label Comments: muscle relaxer famotidine 20 mg Tablet 20 mg PO BID amitriptyline 100 mg tablet 100 mg PO DAILY cholecalciferol (vitamin D3) 1,250 mcg (50,000 unit) capsule 1,250 mcg PO MO Label Comments: TAKE 1 CAPSULE BY MOUTH EVERY WEEK Discontinued meloxicam 7.5 MG tablet 7.5 mg PO BID PRN (Reason: KNEE PAIN) Qty: 0 0RF Label Comments: ARTHRITIS Referrals / Follow Up: Butch Maddox BUILDING MAINTENANCE MECHANIC, BUILDING MAINTENANCE MECHANIC-C [Primary Care Provider] - Within 1 Week Disposition Disposition (needs filled in before D/C Order can be placed): Home Health Service Charges/Coding Visit Charges Inpatient E&M: 48667 Disch Hosp
--- NOTE | 2022-09-05 12:57 | CASEMGMT ---
Addendum entered by Brigette Villafana 09/05/22 13:09: Per [facility] pharmacist, pt's co-pay is $9.85. Pt updated on all, voices understanding. Pt voices no further questions/concerns/needs. Terry VILLEDA CM Original Note: Pt states would like [facility] and order placed for SN, PT/OT. Call to Yolanda at [facility] and referral sent via [facility]. Yolanda states they can accept pt with start of care 09/06/22. Pt does not qualify for home oxygen and this [facility]ON[facility]IL[facility] to check on Eliquis, pt already provided Eliquis coupon card. Terry VILLEDA CM
--- NOTE | 2022-09-05 14:32 | PHA.DC.MR ---
Pharmacy Service has performed discharge medication reconciliation for this patient. The patient's discharge medication list was reviewed for discrepancies and discrepancies were resolved. Unable to student financial services counselor, medications reviewed. Home Medications furosemide 40 mg tablet 40 mg PO BID PRN fluid overload 06/13/17 citalopram 40 mg tablet 40 mg PO DAILY depression 08/25/18 potassium chloride 20 mEq tablet,extended release(part/cryst) 40 meq PO DAILY supplement 11/01/18 oxycodone-acetaminophen 5 mg-325 mg tablet 2 tab PO QHS PRN PRN Pain 09/20/19 albuterol sulfate 90 mcg/actuation aerosol inhaler 2 puff inhalation Q6H PRN shortness of breath or wheezing #8.5 grams 05/11/21 valsartan 320 mg tablet 320 mg PO DAILY heart 05/19/21 omeprazole 40 mg capsule,delayed release 40 mg PO DAILY gerd 06/15/21 pramipexole 1.5 mg tablet 3 mg PO QHS rls 06/15/21 cyclobenzaprine 10 mg tablet 10 mg PO QHS PRN muscle spasm #0 tabs 03/09/22 amitriptyline 100 mg tablet 100 mg PO DAILY PAIN AND SLEEP 08/31/22 cholecalciferol (vitamin D3) 1,250 mcg (50,000 unit) capsule 1,250 mcg PO MO SUPPLEMENT 08/31/22 famotidine 20 mg tablet 20 mg PO BID GERD 08/31/22 apixaban 5 mg tablet See Rx Instructions .Route .COMPLEX 35 days #82 tabs 09/05/22 cephalexin 500 mg capsule 500 mg PO Q8 4 days #13 caps 09/05/22 hydrocortisone 2.5 % topical cream 1 applic topical TID PRN PRN itching back #20 grams 09/05/22
== END 2022-09-05 16:16 | disposition home health service (06) | DRG 871 ==
LOC: ED 16:03 → PCU 16:41 → ICU 09-01 07:22 → PCU 09-01 16:35
PROVIDERS: Internal Medicine Critical Care Medicine; Student in an Organized Health Care Education/Training Program; Admitting Provider Family Medicine; Emergency Provider Emergency Medicine; PCP Nurse Practitioner Family; Visit Provider Internal Medicine
DX: A41.01 Sepsis due to Methicillin susceptible Staphylococcus aureus (principal); I26.99 Other pulmonary embolism without acute cor pulmonale; J96.01 Acute respiratory failure with hypoxia; Z68.43 Body mass index [BMI] 50.0-59.9, adult; G93.49 Other encephalopathy; L03.116 Cellulitis of left lower limb; E66.01 Morbid (severe) obesity due to excess calories; Z89.511 Acquired absence of right leg below knee; M06.9 Rheumatoid arthritis, unspecified; K21.9 Gastro-esophageal reflux disease without esophagitis; G25.81 Restless legs syndrome; E78.5 Hyperlipidemia, unspecified; I10 Essential (primary) hypertension; D50.9 Iron deficiency anemia, unspecified; G47.33 Obstructive sleep apnea (adult) (pediatric); E87.6 Hypokalemia; F41.9 Anxiety disorder, unspecified; Z87.891 Personal history of nicotine dependence; G89.29 Other chronic pain; Z79.01 Long term (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 anticoagulants; F32.A Depression, unspecified; Z79.899 Other long term (current) drug therapy; B95.0 Streptococcus, group A, as the cause of diseases classified elsewhere
CPT/HCPCS: 31500; 31720; 36415; 36556; 36600; 71045; 71046; 71275; 73552; 73590; 74018; 80048; 80053; 82550; 82803; 82962; 83036; 83605; 83880; 84478; 84484; 85025; 85379; 85610; 85730; 87040; 87070; 87077; 87086; 87149; 87186; 87205; 87640; 93005; 93306; 93971; 94002; 94003; 94660; 97110; 97162; 97166; 97530; 97535; 97802; 99251; 99285; J7030; J7040; J7050; Q9957; Q9967; A4216; C8929; G0463; J2405; J3010

== ENCOUNTER 2022-09-10 12:25 | Emergency (ER) | payer MEDICARE, MEDICAID, SELFPAY ==
[2022-09-10] VITALS (7 sets, daily range): BP systolic 111; BP diastolic 55; PULSE 85–100; RESP 21–22; TEMP 36.2; O2SAT 93–98; BMI 58.3
--- NOTE | 2022-09-10 12:40 | EKG12_ITS ---
Test Reason : SOB Blood Pressure : / mmHG Vent. Rate : 087 BPM Atrial Rate : 087 BPM P-R Int : 156 ms QRS Dur : 084 ms QT Int : 362 ms P-R-T Axes : 024 -17 057 degrees QTc Int : 435 ms Normal sinus rhythm Minimal voltage criteria for LVH, may be normal variant ( R in aVL ) Borderline ECG Confirmed by RASHEL BORDEN, STEWART ([id number]), video news editor LUZ MARINA GREY ([id number]) on 09/12/2022 11:27:16 AM Referred By: Confirmed By:STEWART KISER MD
--- NOTE | 2022-09-10 12:42 | EDS_ITS ---
HPI History of Present Illness Chief Complaint: Shortness of Breath Informant: patient and family Onset/Context/Timing Onset: Days Context: gradual Timing: Continuous Current Severity: Mild Maximum Severity: Moderate Worsened by: Exertion and Coughing Associated Symptoms cough and green sputum; Negative for fever, sore throat, subjective, chills or sweats Chest Pain: Positive for None Narrative Narrative: 62-year-old female extensive past medical history including asthma. Recently was admitted to the hospital respiratory failure was intubated was hospitalized for about 5 days and was just discharged past Sunday. She was found to have b ilateral pulmonary emboli and currently is on Eliquis. She is not on home O2. She also has a history of rheumatoid arthritis. States her last several days she had URI symptoms with increasing wheezing and shortness of breath. Only chest pains with coughing. No hemoptysis. No fever or chills. Green to brown phlegm. PE Risk Factors: Positive for OCP + Smoking + > 35, Prior DVT or PE and Recent immobilization; Negative for Cancer, Recent surgery or Recent travel Prior similar symptoms: Yes Recent Illness/Hospitalization: Yes PFSH PFSH Medical History Anemia Anxiety Anxiety and depression Asthma Asthma exacerbation Below knee amputation Benign essential HTN BiPAP (biphasic positive airway pressure) dependence Bronchospasm Depression Failure of outpatient treatment Family history of diabetes mellitus (DM) Fibromyalgia Former smoker GERD (gastroesophageal reflux disease) Hypertension Morbid obesity Necrotizing fasciitis Obstructive sleep apnea Reflex sympathetic dystrophy Restless leg syndrome Rheumatoid arthritis Sleep apnea Home Medications furosemide 40 mg tablet 40 mg PO BID PRN fluid overload 06/13/17 [History Last Taken 08/31/22] citalopram 40 mg tablet 40 mg PO DAILY depression 08/25/18 [History Last Taken 08/31/22] potassium chloride 20 mEq tablet,extended release(part/cryst) 40 meq PO DAILY supplement 11/01/18 [History Last Taken 08/31/22] oxycodone-acetaminophen 5 mg-325 mg tablet 2 tab PO QHS PRN PRN Pain 09/20/19 [History Last Taken 1 Week Ago ~06/08/21] albuterol sulfate 90 mcg/actuation aerosol inhaler 2 puff inhalation Q6H PRN shortness of breath or wheezing #8.5 grams 05/11/21 [Rx Last Taken 08/24/22] valsartan 320 mg tablet 320 mg PO DAILY heart 05/19/21 [History Last Taken 08/31/22] omeprazole 40 mg capsule,delayed release 40 mg PO DAILY gerd 06/15/21 [History Last Taken 08/31/22] pramipexole 1.5 mg tablet 3 mg PO QHS rls 06/15/21 [History Last Taken 08/30/22] cyclobenzaprine 10 mg tablet 10 mg PO QHS PRN muscle spasm #0 tabs 03/09/22 [Rx Last Taken 08/31/22] amitriptyline 100 mg tablet 100 mg PO DAILY PAIN AND SLEEP 08/31/22 [History Last Taken 08/30/22] cholecalciferol (vitamin D3) 1,250 mcg (50,000 unit) capsule 1,250 mcg PO MO SUPPLEMENT 08/31/22 [History Last Taken 08/28/22] famotidine 20 mg tablet 20 mg PO BID GERD 08/31/22 [History Last Taken 08/31/22] apixaban 5 mg tablet (Eliquis) See Rx Instructions .Route .COMPLEX PE #82 tabs 09/05/22 [Rx Last Taken Unknown] cephalexin 500 mg capsule 500 mg PO TID 4 days #13 caps 09/05/22 [Rx Last Taken Unknown] hydrocortisone 2.5 % lotion 1 applic topical TID PRN allergic reaction #59 mL 09/05/22 [Rx Last Taken Unknown] prednisone 10 mg tablet 10 mg PO DAILY #52 tabs 09/10/22 [Rx Last Taken Unknown] Allergy/AdvReac Type Severity Reaction Status Date / Time vancomycin Allergy Rash Verified 09/10/22 12:31 amlodipine AdvReac Swelling Verified 08/31/22 11:26 Family History Mother Hypertension Cancer Pancreatic Diabetes Father Cancer pancreatic Brother Diabetes Grandfather Diabetes Surgical History Chronic knee pain after total replacement of left knee joint H/O foot surgery History of hysterectomy History of tonsillectomy Hx of breast reduction, elective Social History household members: significant other Smoking Status: Former smoker alcohol intake: never substance use type: does not use ROS ROS ED ROS Narrative URI symptoms. Shortness of breath. Wheezing. Review of Systems ROS Unobtainable: Denies due to encephalopathy Constitutional Constitutional ED: Denies chills or fever(s) Eyes Eyes: Denies blurry vision or change in vision ENT ENT ED: Denies ear pain, rhinorrhea or sore throat Cardiovascular Cardiovascular: Denies chest pain, palpitations or racing heartbeat Respiratory/Chest Respiratory/Chest: Reports cough, dyspnea, dyspnea on exertion and sputum Gastrointestinal Gastrointestinal: Denies abdominal pain, constipation, diarrhea, melena, nausea or vomiting Genitourinary Genitourinary ED: Denies dysuria or hematuria Musculoskeletal Musculoskeletal: Denies arthralgias, back pain or myalgias Integumentary Denies abscess or Abrasions Neurologic Neurologic: Denies headache(s) or paresthesias Psychiatric Psychiatric: Denies anxiety or depression Endocrine Endocrinology: Denies cold intolerance or heat intolerance Hematologic/Lymphatic Hematologic/Lymphatic: Denies easy bleeding or easy bruising Allergic/Immunologic Allergic/Immunologic ED: Denies mouth swelling, tongue swelling or urticaria EXAM Physical Exam Narrative Exam Narrative: 62-year-old female actively wheezing. Vital signs are stable afebrile. On 2 L she is 98%. Does not look septic or toxic. H EENT exam unremarkable. Moist [place] members. Neck nontender no JVD. Lungs inspiratory expiratory wheezing. Prolonged expiratory phase. No rales or rhonchi. Equal symmetrical. Heart regular rhythm rate in 90s no murmur. Abdomen soft nontender normal bowel sounds no peritoneal signs. Moving all 4 extremities. She does have a prosthetic right lower leg. Left lower leg has chronic scarring from prior wounds and surgery. No edema. No cords. Neurologically she is awake and alert. Const Vital Signs: 09/10/22 12:27 09/10/22 12:31 09/10/22 12:42 Temperature 97.2 F L Temperature Source Temporal Pulse Rate 93 Respiratory Rate 22 H Respiratory Effort Short of Breath Respiratory Depth Shallow Respiratory Pattern Tachypnea Blood Pressure 111/55 L Blood Pressure Mean 73 Pulse Ox 98 97 Oxygen Delivery Method Nasal Cannula Room Air Room Air Oxygen Flow Rate (L/min) 2 2 2 09/10/22 12:45 09/10/22 12:45 09/10/22 13:35 Temperature Temperature Source Pulse Rate 85 Respiratory Rate 21 H 21 H Respiratory Effort Short of Breath Respiratory Depth Respiratory Pattern Blood Pressure Blood Pressure Mean Pulse Ox 97 97 Oxygen Delivery Method Nasal Cannula Nasal Cannula Oxygen Flow Rate (L/min) 2 2 Positive well nourished, well developed and obese; Negative for cachectic, contractures or unkempt General Appearance ED: well developed; Negative for unkempt, cachectic, contractures, NAD or pallor Nutritional Appearance: obese; Negative for cachectic HEENT Reports moist mucous membranes; Denies dry mucous membranes atraumatic; Negative for trauma or tenderness Mouth ED: No dry mucous membranes Mouth: No dry mucous membranes Eyes PERRL and EOMs intact bilaterally General Eye ED: Negative for pale conjunctiva or scleral icterus Neck no lymphadenopathy, supple, no meningeal signs and no JVD General: Negative for tenderness Lymph Lymphatic: Negative for other Chest Wall Chest: Negative for other Resp No normal respiratory effort and No clear to auscultation bilaterally Resp Narrative: Prolonged expiratory phase. Diffuse wheezing bilaterally both inspiratory and expiratory. No rales, rhonchi. Equal and symmetrical. Effort and Inspection: Negative for pain with movement Auscultation: wheezes; Negative for rales, rhonchi or diminished lung sounds Cardio regular rate, regular rhythm, S1 normal heart sound, S2 normal heart sound and no murmurs Rate: Negative for bradycardia or tachycardic Rhythm: Negative for abnormal rhythm GI non-tender, non-distended and no masses Inspection: Negative for other Auscultation: normoactive bowel sounds; Negative for hyperactive bowel sounds or hypoactive bowel sounds Palpation: soft; Negative for tender or guarding Back/Spine no CVA tenderness and normal to inspection General Back: Negative for CVA tenderness or tenderness Extremity normal to inspection Extremity Narrative: Right lower leg prosthesis. Left lower leg chronic scarring. Calf is nontender no edema. General Extremety ED: Negative for edema or tenderness General Extremity: Negative for edema Neuro oriented x3 and CN's II-XII intact bilaterally Sensorium / Orientation: alert, oriented to person, oriented to place and oriented to time; Negative for orientation impaired, confused, lethargic or stuporous Speech: speech normal Motor Exam: strength 5/5 throughout Psych mental status grossly normal Appearance: Negative for unkempt Attitude: No agitated and No other Mood & Affect: Negative for depressed, anxious or tearful Thought Process: No normal thought process Skin no wounds and skin turgor normal General Skin Exam: Negative for jaundice or pallor Lesions: no lesions Rashes: no rashes Trauma: Negative for abrasion or laceration MDM MDM MDM Narrative Medical decision making narrative: 62-year-old recently hospitalized and on a ventilator for less than a day. Was hospitalized for around 4 to 5 days. Discharged on Sunday. Currently on Eliquis. Appears to have acute exacerbation of asthma. May have an underlying URI. Cardiac work-up with a chest x-ray. She will be treated with IV Solu- Medrol both DuoNeb and albuterol aerosols and reassess. Repeat exam patient still has wheezing at rest just sitting in bed. She is not hypoxic off O2. Her work-up is basically unremarkable except for her chronic anemia. I will speak to the hospitalist. Patient and family would like her to be admitted. Pain patient and Dr. Trinidad had very lengthy discussion. He feels comfortable discharging her to home. He will write her prescription for prednisone. She will do outpatient follow-up. Lab Data Attestation: I reviewed the patient's lab results. Lab results narrative: CBC unremarkable other than her chronic anemia. White count 6.8. H&H 9.3 and 31 which is along with her baseline anemia. Platelets 494. Electrolytes unremarkable gap of 4. Normal BUN and creatinine. Glucose 98. Troponin normal 7. Both rapid COVID and influenza swabs negative. Chest x-ray chronic changes no acute process Labs: Laboratory Results - last 24 hr 09/10/22 09/10/22 11:55 12:45 WBC 6.8 RBC 4.20 Hgb 9.3 L Hct 31.9 L MCV 76.0 L MCH 22.1 L MCHC 29.2 L RDW Std Deviation 57.7 H RDW Coeff of [place]aga 21.2 H Plt Count 494 H MPV 9.4 Immature Gran % (Auto) 2.800 H Neut % (Auto) 54.6 Lymph % (Auto) 29.0 [place] % (Auto) 9.8 Eos % (Auto) 2.8 Baso % (Auto) 1.0 Absolute Neuts (auto) 3.7 Absolute Lymphs (auto) 1.98 Nucleated RBC % 0 Anisocytosis 1+ Microcytosis 1+ Sodium 140 Potassium 4.1 Chloride 107 Carbon Dioxide 29.0 Anion Gap 4 L BUN 15 Creatinine 0.66 Estim Creat Clear Calc 81.67 Est GFR (MDRD) Af Amer 115 Est GFR (MDRD) Non-Af 95 BUN/Creatinine Ratio 22.6 H Glucose 98 Calcium 9.1 Troponin I High Sens 7 Radiography Chest X-Ray - ED: 1 View, Read by ED Physician, Heart, Lungs, Mediastinum, Bony Structures, No Acute Disease and Chronic Changes Diagnostic Testing: Clinical Impression(s) from Imaging Studies Chest X-Ray 09/10/22 13:05 IMPRESSION: Resolution of the left lower lobe pneumonia/atelectasis. Interval extubation. Electronically Signed: Andrew Gerber MD at 13:34 EST , Chest x-ray, portable, single view interpreted by myself shows no acute abnormality. Normal cardiac silhouette. Normal mediastinum. No infiltrates. No effusions. Rhythm Strip Rhythm Strip: Sinus Rhythm Rate: 87 Ectopy: None EKG Initial EKG: Attestation: I personally reviewed and interpreted this EKG as follows: Interpretation: Sinus Rhythm and No Acute Injury Pattern Comments: Normal sinus rhythm rate of 87 no acute signs of MD or ischemia. Unchanged from prior EKG from September 03. Prior EKG tracings: available for review Prior: Unchanged Discharge Plan Triage Chief Complaint: Shortness of Breath ED Provider: Eulalio De La Cruz Dx/Rx/DC Orders Clinical Impression: Acute asthma exacerbation, Acute dyspnea, Hx of pulmonary embolus Instructions: Asthma Prescriptions: New prednisone 10 mg tablet 10 mg PO DAILY Qty: 52 0RF Rx Instructions: Take 4 tabs daily for 5 days then 3 tabs daily for 5 days then 2 tabs daily for 5 days then 1 tab daily for 5 days then half tab daily for 4 days. No Action albuterol sulfate 90 mcg/actuation HFA aerosol inhaler 2 puff inhalation Q6H PRN (Reason: shortness of breath or wheezing) Qty: 8.5 6RF Rx Instructions: administer with spacer furosemide 40 MG tablet 40 mg PO BID PRN (Reason: fluid overload) Label Comments: prn fluid overload citalopram 40 MG tablet 40 mg PO DAILY potassium chloride 20 MEQ tablet 40 meq PO DAILY oxycodone-acetaminophen 1 TABLET tablet 2 tab PO QHS PRN PRN (Reason: Pain) valsartan 320 mg tablet 320 mg PO DAILY omeprazole 40 mg capsule,delayed release(DR/EC) 40 mg PO DAILY pramipexole 1.5 mg tablet 3 mg PO QHS cyclobenzaprine 10 MG tablet 10 mg PO QHS PRN (Reason: muscle spasm) Qty: 0 0RF Label Comments: muscle relaxer famotidine 20 mg Tablet 20 mg PO BID amitriptyline 100 mg tablet 100 mg PO DAILY cholecalciferol (vitamin D3) 1,250 mcg (50,000 unit) capsule 1,250 mcg PO MO Label Comments: TAKE 1 CAPSULE BY MOUTH EVERY WEEK hydrocortisone 2.5 % lotion 1 applic topical TID PRN (Reason: allergic reaction) Qty: 59 0RF Eliquis 5 mg tablet See Rx Instructions .ROUTE .COMPLEX Qty: 82 0RF Rx Instructions: Take 2 tabs (10mg) tonight and for 5 more days followed by one tab twice daily cephalexin 500 mg capsule 500 mg PO TID 4 Days Qty: 13 0RF Rx Instructions: Take one dose tonight and then three times daily for 4 more days Primary Care Provider: Butch Maddox NP Referrals: Butch Maddox NP, [employer] [Primary Care Provider] - 3-5 Days if not improving Activity Restrictions/Additional Instructions: Follow-up with your primary care provider. Prednisone as prescribed by Dr. Trinidad. Use your nebulizer. Return if worse. Disposition Disposition: Home, Self Care
[2022-09-10] MEDS: MethylPREDNISolone 125 MG/2 ML Vial IV (12:51)
[2022-09-10] MEDS: Ipratropium/Albuterol Sulfate 3 ML AMPUL.NEB INHALATION (12:51)
[2022-09-10] MEDS: Albuterol 2.5 MG/3 ML VIAL.NEB. INHALATION ×2 (12:51→12:52)
[2022-09-10 12:54] LABS: Absolute Lymphocyte Count 1.98 X10^3/uL (0.83-4.51); Absolute Neutrophil Count 3.7 X10^3/uL (2.0-7.7); Basophil# 0.07 X10^3/uL; Eosinophil# 0.19 X10^3/uL; Eosinophils% 2.8 % (0-5); Hematocrit 31.9 % (37-47); Hemoglobin 9.3 g/dL (12.0-15.0); Lymphocyte # 1.98 X10^3/ul (0.83-4.51); Mean Corp Hgb Conc 29.2 g/dL (32-36); Mean Corpuscular Hgb 22.1 pg (27.0-32.0); Mean Platelet Vol. 9.4 fl (6.2-12.0); Monocyte# 0.67 X10^3/uL; Monocyte% 9.8 % (0-10); NRBC Flagged by Analyzer 0 % (0-5); Neutrophil # 3.73 X10^3/uL (2.7-7.7); Neutrophil % 54.6 % (47-70); POSITIVE MORPHOLOGY YES; Platelet Count 494 K/mm3 (150-450); RBC Distribution Width CV 21.2 % (11.6-14.6); RBC Distribution Width SD 57.7 fl (35.1-43.9); White Blood Count 6.8 K/mm3 (4.4-11.0)
[2022-09-10 12:55] LABS: Differential Indicated SCAN CRITERIA MET
--- NOTE | 2022-09-10 13:05 | RAD_ITS ---
EXAM: XR CHEST, 1 VIEW CLINICAL INDICATION: chest pain TECHNIQUE: Frontal view of the chest. This report was created using [employer] report generation technology. COMPARISON: XR Chest dated 08/31/2022 FINDINGS: LUNGS AND PLEURAL SPACES: Resolution of the left lower lobe pneumonia/atelectasis. No pneumothorax. No effusion. HEART: Stable mild cardiomegaly. MEDIASTINUM: No mediastinal or hilar mass. BONES/JOINTS: Intraspinal stimulator wire remains in place. SOFT TISSUES: Normal. TUBES, LINES AND DEVICES: Interval extubation and removal of the right IJ central venous catheter. RAD/Chest 1 View (Portable) IMPRESSION: Resolution of the left lower lobe pneumonia/atelectasis. Interval extubation. Electronically Signed: Andrew Gerber MD at 13:34 EST ,
[2022-09-10 13:11] LABS: Anion Gap 4 (5-15); BUN 15 mg/dL (7-18); BUN/Creat Ratio 22.6 RATIO (10-20); Calcium,Total 9.1 mg/dL (8.5-10.1); Chloride 107 mmol/L (98-107); Creatinine, Serum 0.66 mg/dL (0.55-1.02); EST Glomerular Filtration Rate 95 mL/min (>60); Est Glom Filt Rate - Afr Amer 115 mL/min (>60); Estimated Creatinine Clearance 81.67 ml/min; Glucose 98 mg/dL (74-106); Potassium 4.1 mmol/L (3.5-5.1); Sodium Level 140 mmol/L (136-145); Troponin-I HS (w/2H Reflex) 7 pg/mL (3.0-54.0)
[2022-09-10 13:34] LABS: Anisocytosis 1+; Microcytosis 1+
[2022-09-10 14:50] LABS: Reflex Troponin-HS? (from REC) Y
--- NOTE | 2022-09-10 14:55 | ED.RN ---
Dr. De La Cruz said no need for 2nd troponin draw
--- NOTE | 2022-09-10 15:01 | PCM.PN.HOSP ---
Subjective Subjective 62-year-old female who was recently discharged from the hospital with bilateral pulmonary embolisms as well as of strep a and MSSA pneumonia presents to the hospital with shortness of breath. Unfortunate she is not hypoxic at rest or with ambulation. She states that she does have a history of asthma that does not get better unless she is on IV steroids. She also states that her asthma does not improve with inhalers. During my discussion with her she states that all of her issues started in 1996 which is when she had moved into an old farm house with likely mold and a dirt floor. She also required fuel oil to heat that house and she lived there for about 18 years. After she moved out she moved into a house that was newer and her respiratory symptoms essentially resolved and then for the last 3 or 4 years she has been living in a older house with a dirt floor and her symptoms have recurred. She does also have some allergen that can trigger her respiratory issues. She did have an IgE test which was elevated in 2012 and she has had eosinophilia several times in her blood work most recently in her during her last admission. She is currently on appropriate Eliquis for her PEs. She did have PFTs done on 11/07/2019 which was read as normal with a diffusing capacity of 76% predicted and a lung capacity of 5.48 L. Her FEV1 was 91% predicted and there is no significant bronchodilator response. Objective Data Objective Data Vital Signs: Vital Signs Temp Pulse Resp BP Pulse Ox O2 Del Method O2 Flow Rate 97.2 F L 85 21 H 111/55 L 97 Nasal Cannula 2 09/10/22 12:27 09/10/22 13:35 09/10/22 13:35 09/10/22 12:27 09/10/22 12:45 09/10/22 12:45 09/10/22 12:45 Oxygen Flow Rate (L/min) 2 Oxygen Delivery Method Nasal Cannula Weight: 361 lb 11.2 oz Body Mass Index (BMI) 58.3 Lab / Micro Data Result Diagrams: 09/10/22 12:45 09/10/22 11:55 Labs: Laboratory Results - last 24 hr 09/10/22 11:55: Sodium 140, Potassium 4.1, Chloride 107, Carbon Dioxide 29.0, Anion Gap 4 L, BUN 15, Creatinine 0.66, Estim Creat Clear Calc 81.67, Est GFR (MDRD) Af Amer 115, Est GFR (MDRD) Non-Af 95, BUN/Creatinine Ratio 22.6 H, Glucose 98, Calcium 9.1, Troponin I High Sens 7 09/10/22 12:45: WBC 6.8, RBC 4.20, Hgb 9.3 L, Hct 31.9 L, MCV 76.0 L, MCH 22.1 L, MCHC 29.2 L, RDW Std Deviation 57.7 H, RDW Coeff of [place]aga 21.2 H, Plt Count 494 H, MPV 9.4, Immature Gran % (Auto) 2.800 H, Neut % (Auto) 54.6, Lymph % (Auto) 29.0, [place] % (Auto) 9.8, Eos % (Auto) 2.8, Baso % (Auto) 1.0, Absolute Neuts (auto) 3.7, Absolute Lymphs (auto) 1.98, Nucleated RBC % 0, Anisocytosis 1+, Microcytosis 1+ Micro: Microbiology 09/10/22 12:46 Nasal Secretion SARS-CoV-2 & FLU Antigen (Rapid) - Final Radiography Diagnostic Testing: Radiology Impression Chest X-Ray 09/10/22 13:05 IMPRESSION: Resolution of the left lower lobe pneumonia/atelectasis. Interval extubation. Electronically Signed: Andrew Gerber MD at 13:34 EST Reading Location ID and State: [address] [place] [address] Tel , Service support , Rhythm Strip Rhythm Strip: Sinus Rhythm Rate: 87 Ectopy: None Physical Exam Narrative General: Alert, Oriented x3, Cooperative, No apparent distress HEENT: Atraumatic, PERRLA, EOMI, Normocephalic Oral: Moist Mucosa Neck: Supple, No JVD Lungs: Diminished at bases, Normal air movement, No rhonchi, No wheeze, No rales Cardiovascular: Regular rate, Regular Rhythm, Normal S1, Normal S2, No murmurs Abdomen: Soft, Non Tender, Non-Distended, No Hepato-splenomegaly, morbidly obese Extremities: AKA on the right and significant scarring from necrotizing fasciitis on her left lower extremity with lymphedema Skin: No rashes, No breakdown Musculoskeletal: No Tenderness to Palpation of Joints or Extremities Neurological: Cranial nerves II-XII grossly intact, Motor Exam 5/5 strength throughout, Sensory exam intact to light touch and pain Psych/Mental Status: Normal Affect, Appropriate Assessment & Plan Assessment/Plan (1) Acute asthma exacerbation: PLAN: Plan 1. Acute asthma exacerbation ? I feel a lot of her respiratory symptoms are multifaceted from her bilateral PEs that she is only about 10 days out from as well as her obesity as well as her history of asthma and living in an environment that is essentially providing a constant exposure ? I did have extensive discussions with her that she should continue to take her Eliquis and that it can take several weeks for her blood clots to dissolve ? She did ambulate and did not require any oxygen with ambulation and she did not require any oxygen at rest ? She did complete her antibiotics ? We will provide her a very slow steroid taper to go home with ? She did describe some orthopnea looking at her echo which was done on 08/31/2022 admission when she presented with her PEs her EF is right at 60% and normal pulmonary artery pressures but it was a technically difficult study ? She does have a stress test planned for this week which I recommend she continue ? There was no wheezing on my exam but she had just completed an albuterol treatment, she does have inhaler and a nebulizer at home Charges/Coding Visit Charges Office Visits / Consults: 16895 ED Visit; Moderate Severity
== END 2022-09-10 15:17 | disposition home or self-care (01) ==
PROVIDERS: Emergency Provider Emergency Medicine; PCP Nurse Practitioner Family; Visit Provider Emergency Medicine
DX: J45.901 Unspecified asthma with (acute) exacerbation (principal); R06.00 Dyspnea, unspecified; G47.33 Obstructive sleep apnea (adult) (pediatric); Z87.891 Personal history of nicotine dependence; Z79.01 Long term (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 anticoagulants; Z86.711 Personal history of pulmonary embolism
CPT/HCPCS: 71045; 80048; 84484; 85025; 87428; 93005; 94640; 96374; 99251; 99285; A4216; G0463

== ENCOUNTER 2022-10-15 23:18 | Inpatient (IN) | payer MEDICARE, MEDICAID, SELFPAY ==
[2022-10-15 23:18] VITALS: BP 135/83; PULSE 115; RESP 21; TEMP 39.4; O2SAT 99; BMI 61.4
[2022-10-15 23:53] LABS: Absolute Lymphocyte Count 0.94 X10^3/uL (0.83-4.51); Absolute Neutrophil Count 10.5 X10^3/uL (2.0-7.7); Basophil# 0.05 X10^3/uL; Basophil% 0.4 % (0-1); Eosinophil# 0.13 X10^3/uL; Hematocrit 32.6 % (37-47); Hemoglobin 9.3 g/dL (12.0-15.0); Lymphocyte # 0.94 X10^3/ul (0.83-4.51); Lymphocyte % 7.6 % (19-41); Mean Corp Hgb Conc 28.5 g/dL (32-36); Mean Corpuscular Volume 77.3 fL (81-99); Monocyte% 6.4 % (0-10); NRBC Flagged by Analyzer 0 % (0-5); Neutrophil # 10.48 X10^3/uL (2.7-7.7); Neutrophil % 84.3 % (47-70); Platelet Count 301 K/mm3 (150-450); RBC Distribution Width CV 18.8 % (11.6-14.6); RBC Distribution Width SD 52.1 fl (35.1-43.9); Red Blood Count 4.22 M/mm3 (4.2-5.4); White Blood Count 12.4 K/mm3 (4.4-11.0)
[2022-10-15 23:59] LABS: Erythrocyte Sedimentation Rate 46 mm/hr (0-30)
[2022-10-15] MEDS: Morphine 4 MG/ML Syringe IV (23:59)
[2022-10-16] VITALS (22 sets, daily range): BP systolic 93–146; BP diastolic 44–83; PULSE 75–115; RESP 16–33; TEMP 36.4–39.4; O2SAT 93–99; BMI 59.3
[2022-10-16] MEDS: DiphenhydrAMINE 50 MG/ML Syringe 12.5 MG IV
[2022-10-16] MEDS: Ondansetron 4 MG/2 ML Vial IV
[2022-10-16] MEDS: Acetaminophen 500 MG Tablet 1000 MG PO (00:01)
--- NOTE | 2022-10-16 00:03 | RAD_ITS ---
INDICATION: ? Osteomyelitis Woke up this morning with fever, chills, and increased swelling/ redness in L lower leg. Has had wound since december 2021. Wound to distal 1/3 of lt tib fib EXAMINATION/TECHNIQUE: X-RAY - LEFT XR Ankle Min 3 Views 3 VIEWS COMPARISON: None. FINDINGS: BONES: No fracture demonstrated. JOINTS: No dislocation. SOFT TISSUES: Diffuse soft tissue swelling about the ankle. RAD/Ankle min 3 Views IMPRESSION: Soft tissue swelling. No evidence of fracture. Electronically Signed: Joaquina Mayer MD at 0:42 EST ,
[2022-10-16] MEDS: 0.9% Normal Saline 1,000 ML 999 ML IV ×2 (00:04→02:53)
--- NOTE | 2022-10-16 00:04 | RAD_ITS ---
INDICATION: ? Osteomyelitis Woke up this morning with fever, chills, and increased swelling/ redness in L lower leg. Has had wound since december 2021. Wound to distal 1/3 of lt tib fib EXAMINATION/TECHNIQUE: X-RAY - LEFT XR Tibia/Fibula 2 Views 4 VIEWS COMPARISON: Left tib-fib x-rays08/31/2022. FINDINGS: BONES: Surgical hardware or femoral and tibial components of the prosthesis appear well situated unchanged alignment. No fracture demonstrated. No lytic lesion or cortical destruction. JOINTS: No dislocation. SOFT TISSUES: Surgical clips unchanged. Diffuse soft tissue swelling. Question soft tissue defect lateral to ankle question site of wound. RAD/Tibia & Fibula 2 Views IMPRESSION: Diffuse soft tissue swelling. Question wound lateral at the ankle. No radiographic evidence of osteomyelitis. MRI may be helpful for further evaluation. Electronically Signed: Joaquina Mayer MD at 0:46 EST ,
[2022-10-16 00:08] LABS: Anion Gap 6 (5-15); BUN 16 mg/dL (7-18); BUN/Creat Ratio 17.7 RATIO (10-20); Calcium,Total 8.6 mg/dL (8.5-10.1); Chloride 106 mmol/L (98-107); EST Glomerular Filtration Rate 67 mL/min (>60); Est Glom Filt Rate - Afr Amer 81 mL/min (>60); Estimated Creatinine Clearance 59.89 ml/min; Glucose 136 mg/dL (74-106); Potassium 4.3 mmol/L (3.5-5.1); Sodium Level 136 mmol/L (136-145)
[2022-10-16 00:19] LABS: Partial Thromboplast Time 28.9 Seconds (24.1-36.2); Prothrombin Time (Protime)PT. 13.2 SECONDS (11.7-14.9)
[2022-10-16] MEDS: Linezolid 600 MG 600 MG/300 ML BAG 200 MG IV ×3 (01:20→21:18)
--- NOTE | 2022-10-16 01:23 | PCM.HP.STD ---
HPI - General General Date of Admission: 10/16/22 Date of Service: 10/16/22 Chief Complaint: LLE redness, pain and swelling HPI Narrative SAULO PUENTES, is a 62 F with a PMH as outlined who presents via the ED with a complaint of redness, pain and swelling of the left lower extremity which started on the morning of admission. She had associated fever. She also noted some discharge from her LLE. Pain, redness, swelling and fever with associated chills persisted so she came in to the ED. She was recently admitted in August 2022 for cellulitis of the RKE which improved with administration of IV antibiotics. She had necrotising fasciitis of the LLE in December 2021 and had fasciotomy done at [facility]. Vitals in the ED at time of review were BP of 128/44, RR of 33, IA of 99 and temp of 100.8F. She was saturating at 96% on room air. CBC showed wbc of 12.4, Hb of 9.3 and platelets of 301. INR is 1 and chemistry was unremarkable. ESR was 46 and CRP was 18. XRay of the left tibia, fibula and ankle showed diffuse soft tissue swelling and no evidence of osteomyelitis. SHe is being admitted to be managed for cellulitis of hte LLE. She was started on IV linezolid and zosyn in the ED. [facility] Medical History (Updated 10/16/22 @ 01:[address] David Felipe, ) Anemia Anxiety Anxiety and depression Asthma Asthma exacerbation Below knee amputation Benign essential HTN BiPAP (biphasic positive airway pressure) dependence Bronchospasm Depression Failure of outpatient treatment Family history of diabetes mellitus (DM) Fibromyalgia Former smoker GERD (gastroesophageal reflux disease) Hypertension Morbid obesity Necrotizing fasciitis Obstructive sleep apnea Reflex sympathetic dystrophy Restless leg syndrome Rheumatoid arthritis Sleep apnea Home Medications potassium chloride 20 mEq tablet,extended release(part/cryst) 40 meq PO DAILY supplement 11/01/18 [History Last Taken 08/31/22] albuterol sulfate 90 mcg/actuation aerosol inhaler 2 puff inhalation Q6H PRN shortness of breath or wheezing #8.5 grams 05/11/21 [Rx Last Taken 08/24/22] valsartan 320 mg tablet 320 mg PO DAILY heart 05/19/21 [History Last Taken 08/31/22] omeprazole 40 mg capsule,delayed release 40 mg PO DAILY gerd 06/15/21 [History Last Taken 08/31/22] pramipexole 1.5 mg tablet 3 mg PO QHS rls 06/15/21 [History Last Taken 08/30/22] cyclobenzaprine 10 mg tablet 10 mg PO QHS PRN muscle spasm #0 tabs 03/09/22 [Rx Last Taken 08/31/22] amitriptyline 100 mg tablet 100 mg PO DAILY PAIN AND SLEEP 08/31/22 [History Last Taken 08/30/22] cholecalciferol (vitamin D3) 1,250 mcg (50,000 unit) capsule 1,250 mcg PO MO SUPPLEMENT 08/31/22 [History Last Taken 08/28/22] famotidine 20 mg tablet 20 mg PO BID GERD 08/31/22 [History Last Taken 08/31/22] apixaban 5 mg tablet 5 mg PO BID blood thinner 10/16/22 [History Last Taken Unknown] budesonide-formoterol HFA 160 mcg-4.5 mcg/actuation aerosol inhaler (Symbicort) 2 puff inhalation BID asthma 10/16/22 [History Last Taken Unknown] duloxetine 30 mg capsule,delayed release 30 mg PO DAILY depression 10/16/22 [History Last Taken Unknown] escitalopram oxalate 20 mg tablet 20 mg PO DAILY depression 10/16/22 [History Last Taken Unknown] metoprolol succinate 50 mg tablet,extended release 24 hr 50 mg PO DAILY blood pressure 10/16/22 [History Last Taken Unknown] montelukast 10 mg tablet 10 mg PO DAILY asthma 10/16/22 [History Last Taken Unknown] Allergy/AdvReac Type Severity Reaction Status Date / Time vancomycin Allergy Rash Verified 10/15/22 23:25 amlodipine AdvReac Swelling Verified 10/15/22 23:25 Family History (Reviewed 10/04/22 @ 08:19 by Adwoa Cruz SIDE SEAM MACHINE OPERATOR, SIDE SEAM MACHINE OPERATOR-C) Mother Hypertension Cancer Pancreatic Diabetes Father Cancer pancreatic Brother Diabetes Grandfather Diabetes Surgical History Chronic knee pain after total replacement of left knee joint H/O foot surgery History of hysterectomy History of tonsillectomy Hx of breast reduction, elective Social History (Reviewed 10/04/22 @ 08:19 by Adwoa Cruz SIDE SEAM MACHINE OPERATOR, SIDE SEAM MACHINE OPERATOR-C) household members: significant other Smoking Status: Former smoker alcohol intake: never substance use type: does not use ROS Review of Systems ROS Unobtainable: Denies due to encephalopathy Constitutional Constitutional: Reports chills, fatigue, fever(s), malaise and weakness; Denies anorexia Eyes Eyes: Denies change in vision ENT HEENT: Denies dysphagia, headache(s), nasal congestion or sore throat Cardiovascular Cardiovascular: Denies chest pain, dyspnea on exertion, edema, lightheadedness, orthopnea, palpitations, paroxysmal nocturnal dyspnea, rapid heart rate or syncope Respiratory/Chest Respiratory/Chest: Denies cough, dyspnea, shortness of breath at rest or shortness of breath with exertion Gastrointestinal Gastrointestinal: Denies abdominal pain, constipation, diarrhea, nausea or vomiting Genitourinary Genitourinary: Denies dysuria Musculoskeletal Musculoskeletal: Denies arthralgias, back pain, joint pain, joint swelling or neck pain Neurologic Neurologic: Denies confusion, dizziness, focal weakness or headache(s) Vital Signs Vital Signs Vital Signs: 10/15/22 23:18 10/16/22 00:07 10/16/22 01:18 Temperature 103 F H 100.4 F H Temperature Source Oral Oral Pulse Rate 115 H 106 H Respiratory Rate 21 H 19 H Blood Pressure 135/83 H 128/65 H Blood Pressure Mean 100 86 Pulse Ox 99 98 Oxygen Delivery Method Room Air Room Air Room Air Weight Weight: 380 lb 8.285 oz Body Mass Index (BMI) 61.4 Physical Exam Const alert, oriented x3 and no apparent distress Constitutional Narrative: super morbid obesity, looks uncomfortable due to pain in LLE HEENT normocephalic, head/scalp atraumatic, hearing grossly normal bilaterally and moist oral mucous membranes Mouth: oral and palatal mucosa normal Eyes PERRL, EOMs intact bilaterally and conjunctivae normal Neck no lymphadenopathy, supple and no JVD Resp normal respiratory effort, no retractions, no use of accessory muscles and clear to auscultation bilaterally Cardio regular rate, regular rhythm, S1 normal heart sound, S2 normal heart sound and no murmurs GI normal to inspection, nondistended, normoactive bowel sounds, soft to palpation, non-tender and non-distended Extremity Extremity Narrative: Has RLE AKA with prosthesis in place. LLE is edematous, has erythema extending from dorsum of left foot up to just below the knee. Site of scar from fasciotomy is crusted over with yellowish discharge. Tender to touch, warm to touch. Neuro oriented x3 Sensorium / Orientation: awake and alert Psych affect normal Results Lab / Micro Data Result Diagrams: 10/15/22 23:40 10/15/22 23:40 Labs: Laboratory Results - last 24 hr 10/15/22 23:40: WBC 12.4 H, RBC 4.22, Hgb 9.3 L, Hct 32.6 L, MCV 77.3 L, MCH 22.0 L, MCHC 28.5 L, RDW Std Deviation 52.1 H, RDW Coeff of Naga 18.8 H, Plt Count 301, MPV 10.0, Immature Gran % (Auto) 0.300, Neut % (Auto) 84.3 H, Lymph % (Auto) 7.6 L, [place] % (Auto) 6.4, Eos % (Auto) 1.0, Baso % (Auto) 0.4, Absolute Neuts (auto) 10.5 H, Absolute Lymphs (auto) 0.94, Nucleated RBC % 0, ESR 46 H 10/15/22 23:40: Sodium 136, Potassium 4.3, Chloride 106, Carbon Dioxide 24.0, Anion Gap 6, BUN 16, Creatinine 0.90, Estim Creat Clear Calc 59.89, Est GFR (MDRD) Af Amer 81, Est GFR (MDRD) Non-Af 67, BUN/Creatinine Ratio 17.7, Glucose 136 H, Calcium 8.6, C-React Prot Ext Range 18.00 H 10/15/22 23:58: Lactic Acid 2.0 10/15/22 23:58: PT 13.2, INR 1.0, APTT 28.9 Radiology Impression Ankle X-Ray 10/16/22 00:03 IMPRESSION: Soft tissue swelling. No evidence of fracture. Electronically Signed: Joaquina Mayer MD at 0:42 EST , Tibia/Fibula X-Ray 10/16/22 00:04 IMPRESSION: Diffuse soft tissue swelling. Question wound lateral at the ankle. No radiographic evidence of osteomyelitis. MRI may be helpful for further evaluation. Electronically Signed: Joaquina Mayer MD at 0:46 EST , Assessment & Plan Assessment/Plan (1) Cellulitis of left lower extremity: PLAN: Plan #SIRS criteria due to cellulitis of LLE Admit to PCU on account of positive SIRS criteria. Redness, swelling and pain of left lower extremity started to start 5 PM on the night before admission with associated fever and chills. X-ray of the left foot showed diffuse soft tissue swelling with no evidence of osteomyelitis. CBC is mildly elevated at 12.4. Started on IV linezolid and IV Zosyn. Patient allergic to IV vancomycin and she got red man syndrome from it due to previous admission. Blood cultures and wound cultures ordered. PT OT consulted. Of note she was admitted in August 2022 for left lower extremity cellulitis and this was complicated by acute hypoxic respiratory failure due to bilateral PE as well as MSSA pneumonia. She was discharged home on oral Keflex. #History of necrotizing fasciitis, s/p fasciotomy of left lower extremity back in December 2021. #History of bilateral PE: On Eliquis ##Hypertension: On valsartan and Lasix #Anxiety and depression: On amitriptyline and escitalopram #Rheumatoid arthritis: On steroids #GERD: On PPI DVT prophylaxis: On Eliquis Code status: full code Patient counseled extensively about different types of CODE STATUS including full code, DNR CCA and DNR CCA. Patient elects to be full code. Total [id number] time 17 minutes. Charges/Coding Visit Charges Inpatient E&M: 17346 Init Hosp L3 Procedures Hospitalists Procedures: 36059 Advncd Care Plan 30 Min
--- NOTE | 2022-10-16 01:29 | EX.ED.DYSGE1 ---
HPI History of Present Illness Chief Complaint: Wound Narrative Narrative: Patient is a 62-year-old female with past medical history of hypertension chronic left lower leg wound previous necrotizing fasciitis bilateral pulmonary embolism currently on Eliquis and previous below the knee leg amputation on right. She states that today she just felt unwell and later in the day noticed that she was having redness and swelling to her left lower leg. She states this evening she developed a fever up to 103 with increasing pain in the left leg. She states she has concerned that she is developing an infection once again similar to her previous bout of necrotizing fasciitis and therefore comes to the hospital for evaluation [facility] Medical History (Updated 10/16/22 @ 02:49 by Isabela Dumont) Anemia Anxiety Anxiety and depression Asthma Asthma exacerbation Below knee amputation Benign essential HTN BiPAP (biphasic positive airway pressure) dependence Bronchospasm Depression Failure of outpatient treatment Family history of diabetes mellitus (DM) Fibromyalgia Former smoker GERD (gastroesophageal reflux disease) Hypertension Morbid obesity Necrotizing fasciitis Obstructive sleep apnea Pulmonary embolism Reflex sympathetic dystrophy Restless leg syndrome Rheumatoid arthritis Sleep apnea Home Medications potassium chloride 20 mEq tablet,extended release(part/cryst) 40 meq PO DAILY supplement 11/01/18 [History Last Taken 08/31/22] albuterol sulfate 90 mcg/actuation aerosol inhaler 2 puff inhalation Q6H PRN shortness of breath or wheezing #8.5 grams 05/11/21 [Rx Last Taken 08/24/22] valsartan 320 mg tablet 320 mg PO DAILY heart 05/19/21 [History Last Taken 08/31/22] omeprazole 40 mg capsule,delayed release 40 mg PO DAILY gerd 06/15/21 [History Last Taken 08/31/22] pramipexole 1.5 mg tablet 3 mg PO QHS rls 06/15/21 [History Last Taken 08/30/22] cyclobenzaprine 10 mg tablet 10 mg PO QHS PRN muscle spasm #0 tabs 03/09/22 [Rx Last Taken 08/31/22] amitriptyline 100 mg tablet 100 mg PO QHS PAIN AND SLEEP 08/31/22 [History Last Taken 08/30/22] cholecalciferol (vitamin D3) 1,250 mcg (50,000 unit) capsule 1,250 mcg PO MO SUPPLEMENT 08/31/22 [History Last Taken 08/28/22] famotidine 20 mg tablet 20 mg PO BID GERD 08/31/22 [History Last Taken 08/31/22] apixaban 5 mg tablet 5 mg PO BID blood thinner 10/16/22 [History Last Taken Unknown] budesonide-formoterol HFA 160 mcg-4.5 mcg/actuation aerosol inhaler (Symbicort) 2 puff inhalation BID asthma 10/16/22 [History Last Taken Unknown] duloxetine 30 mg capsule,delayed release 30 mg PO DAILY depression 10/16/22 [History Last Taken Unknown] escitalopram oxalate 20 mg tablet 20 mg PO DAILY depression 10/16/22 [History Last Taken Unknown] metoprolol succinate 50 mg tablet,extended release 24 hr 50 mg PO DAILY blood pressure 10/16/22 [History Last Taken Unknown] montelukast 10 mg tablet 10 mg PO DAILY asthma 10/16/22 [History Last Taken Unknown] Allergy/AdvReac Type Severity Reaction Status Date / Time vancomycin Allergy Rash Verified 10/15/22 23:25 amlodipine AdvReac Swelling Verified 10/15/22 23:25 Family History Mother Hypertension Cancer Pancreatic Diabetes Father Cancer pancreatic Brother Diabetes Grandfather Diabetes Surgical History Chronic knee pain after total replacement of left knee joint H/O foot surgery History of hysterectomy History of tonsillectomy Hx of breast reduction, elective Social History household members: significant other Smoking Status: Former smoker alcohol intake: never substance use type: does not use ROS ROS ED Constitutional Constitutional ED: Reports chills and fever(s) ENT ENT ED: Denies sore throat Cardiovascular Cardiovascular: Denies chest pain Respiratory/Chest Respiratory/Chest: Denies cough or dyspnea Gastrointestinal Gastrointestinal: Reports nausea; Denies abdominal pain, diarrhea or vomiting Genitourinary Genitourinary ED: Denies dysuria Musculoskeletal Musculoskeletal: Reports other Details: Positive left leg pain Integumentary Reports other Details: Positive chronic wound to the left leg as well as left leg redness Neurologic Neurologic: Denies headache(s) Hematologic/Lymphatic Hematologic/Lymphatic: Reports easy bleeding and easy bruising EXAM Physical Exam Const Vital Signs: 10/15/22 23:18 10/16/22 00:07 10/16/22 01:18 Temperature 103 F H 100.4 F H Temperature Source Oral Oral Pulse Rate 115 H 106 H Respiratory Rate 21 H 19 H Blood Pressure 135/83 H 128/65 H Blood Pressure Mean 100 86 Pulse Ox 99 98 Oxygen Delivery Method Room Air Room Air Room Air 10/16/22 00:21 10/16/22 01:21 Temperature 102 F H 101 F H Temperature Source Oral Oral Pulse Rate 115 H 104 H Respiratory Rate 26 H 27 H Blood Pressure 135/83 H 128/44 H Blood Pressure Mean 100 72 Pulse Ox 95 96 Oxygen Delivery Method Room Air Room Air Positive well nourished, well developed and obese General Appearance ED: well developed Nutritional Appearance: obese Eyes PERRL and EOMs intact bilaterally Neck supple Neck Narrative: No nuchal rigidity or meningeal signs present Resp normal respiratory effort and clear to auscultation bilaterally Cardio regular rhythm Rate: tachycardic and other Other Details: Radial pulses are plus 2 out of 4 bilaterally are equal and symmetric GI normal to inspection, nondistended, normoactive bowel sounds, non-tender, non-distended and no masses GI Narrative: No voluntary guarding or rigidity no pulsatile mass or fluid wave Auscultation: normoactive bowel sounds Palpation: soft Extremity Extremity Narrative: Patient has a below the knee right amputation. Left lower extremity is neurovascularly intact. She has chronic wounds to the medial and lateral aspect of the distal tibia/ankle. The wounds are only dermal layer deep with good granulation tissue. However extending out from the wound is diffuse erythema and warmth that tracks up to the knee. No abscess formation noted. No crepitance palpated. No lymphangitic streaking. Neuro oriented x3 and CN's II-XII intact bilaterally Sensorium / Orientation: alert Psych mental status grossly normal Skin Skin Narrative: Soft tissue changes to the left lower leg as documented above MDM MDM MDM Narrative Medical decision making narrative: Patient presented to the ER febrile and was tachycardic most consistent with the fever. She is not hypoxic nor she having chest pain and she is currently on Eliquis and my concern for PE is low. By exam she has erythema and warmth with chronic wounds concerning for cellulitis and underlying osteomyelitis. There is no crepitance to suggest gangrene. With the high fever there is concern she is also becoming septic so therefore basic blood work along with blood cultures were obtained. Patient was started on Zosyn and linezolid as she reports a vancomycin allergy. Patient is morbidly obese and as she is not hypotensive I elected only to provide 2 L of fluid at this time versus a true 30 mL/kg bolus which would have placed her at home was 4 L. Blood work revealed leukocytosis at 12.4 with lactic at the upper limit of normal at 2.0 and her CRP is elevated at 18 otherwise remainder labs revealed no clinically significant finding. X-rays of the left leg and ankle were obtained and show no obvious signs of osteomyelitis or free air to suggest a gangrenous infection. At this time however she does have a fever over 100.4 a white count of 12.4 she is tachycardic above 100 and we have a source of infection indicating mild sepsis. Secondary to this patient will be admitted to the hospital for continued IV antibiotics. The plan of care was discussed with the patient and she is agreeable to it Lab Data Attestation: I reviewed the patient's lab results. Labs: Laboratory Results - last 24 hr 10/15/22 10/15/22 10/15/22 23:40 23:40 23:58 WBC 12.4 H RBC 4.22 Hgb 9.3 L Hct 32.6 L MCV 77.3 L MCH 22.0 L MCHC 28.5 L RDW Std Deviation 52.1 H RDW Coeff of Naga 18.8 H Plt Count 301 MPV 10.0 Immature Gran % (Auto) 0.300 Neut % (Auto) 84.3 H Lymph % (Auto) 7.6 L [place] % (Auto) 6.4 Eos % (Auto) 1.0 Baso % (Auto) 0.4 Absolute Neuts (auto) 10.5 H Absolute Lymphs (auto) 0.94 Nucleated RBC % 0 ESR 46 H PT INR APTT Sodium 136 Potassium 4.3 Chloride 106 Carbon Dioxide 24.0 Anion Gap 6 BUN 16 Creatinine 0.90 Estim Creat Clear Calc 59.89 Est GFR (MDRD) Af Amer 81 Est GFR (MDRD) Non-Af 67 BUN/Creatinine Ratio 17.7 Glucose 136 H Lactic Acid 2.0 Calcium 8.6 C-React Prot Ext Range 18.00 H 10/15/22 23:58 WBC RBC Hgb Hct MCV MCH MCHC RDW Std Deviation RDW Coeff of Naga Plt Count MPV Immature Gran % (Auto) Neut % (Auto) Lymph % (Auto) [place] % (Auto) Eos % (Auto) Baso % (Auto) Absolute Neuts (auto) Absolute Lymphs (auto) Nucleated RBC % ESR PT 13.2 INR 1.0 APTT 28.9 Sodium Potassium Chloride Carbon Dioxide Anion Gap BUN Creatinine Estim Creat Clear Calc Est GFR (MDRD) Af Amer Est GFR (MDRD) Non-Af BUN/Creatinine Ratio Glucose Lactic Acid Calcium C-React Prot Ext Range Radiography Diagnostic Testing: Clinical Impression(s) from Imaging Studies Ankle X-Ray 10/16/22 00:03 IMPRESSION: Soft tissue swelling. No evidence of fracture. Electronically Signed: Joaquina Mayer MD at 0:42 EST , Tibia/Fibula X-Ray 10/16/22 00:04 IMPRESSION: Diffuse soft tissue swelling. Question wound lateral at the ankle. No radiographic evidence of osteomyelitis. MRI may be helpful for further evaluation. Electronically Signed: Joaquina Maeyr MD at 0:46 EST , X-ray of the left tibia and fibula as well as the left ankle as interpreted by the emergency medicine physician reveals soft tissue swelling without acute fracture dislocation or signs of osteomyelitis Discharge Plan Dx/Rx/DC Orders Clinical Impression: Cellulitis of left lower extremity, Septicemia, Chronic wound of extremity, Current use of [facility] anticoagulation Disposition Disposition: Acute Care Hospital [facility] Discharge Date/Time: 10/16/22 02:11
[2022-10-16] MEDS: 0.9% Normal Saline 1,000 ML 150 ML IV ×2 (04:03→09:22)
[2022-10-16 04:06] LABS: Reflex Lactate? Y
[2022-10-16] MEDS: 0.9% Saline Lock 10 ML Syringe IV (04:08)
--- NOTE | 2022-10-16 04:44 | EKG12_ITS ---
Test Reason : CP Blood Pressure : / mmHG Vent. Rate : 089 BPM Atrial Rate : 089 BPM P-R Int : 168 ms QRS Dur : 088 ms QT Int : 370 ms P-R-T Axes : 005 -16 031 degrees QTc Int : 450 ms Normal sinus rhythm Minimal voltage criteria for LVH, may be normal variant ( R in aVL ) Poor R wave progression Confirmed by ELDER BORDEN, LOUIS ([id number]), offline editor LUZ MARINA GREY ([id number]) on 10/18/2022 9:54:40 AM Referred By: DR FAY Confirmed By:LOUIS FRIEDMAN MD
[2022-10-16 05:02] LABS: Absolute Neutrophil Count 12.1 X10^3/uL (2.0-7.7); Basophil# 0.05 X10^3/uL; Basophil% 0.3 % (0-1); Eosinophils% 0.7 % (0-5); Hematocrit 27.8 % (37-47); Hemoglobin 8.4 g/dL (12.0-15.0); Lymphocyte % 6.3 % (19-41); Mean Corp Hgb Conc 30.2 g/dL (32-36); Mean Corpuscular Hgb 22.7 pg (27.0-32.0); Mean Corpuscular Volume 75.1 fL (81-99); Mean Platelet Vol. 9.6 fl (6.2-12.0); Monocyte# 1.15 X10^3/uL; NRBC Flagged by Analyzer 0 % (0-5); Neutrophil # 12.07 X10^3/uL (2.7-7.7); Neutrophil % 84.1 % (47-70); Platelet Count 263 K/mm3 (150-450); RBC Distribution Width CV 18.5 % (11.6-14.6); RBC Distribution Width SD 50.4 fl (35.1-43.9); White Blood Count 14.4 K/mm3 (4.4-11.0)
[2022-10-16 05:19] LABS: Anion Gap 7 (5-15); BUN 15 mg/dL (7-18); BUN/Creat Ratio 16.4 RATIO (10-20); Calcium,Total 7.8 mg/dL (8.5-10.1); Chloride 106 mmol/L (98-107); Creatinine, Serum 0.92 mg/dL (0.55-1.02); EST Glomerular Filtration Rate 66 mL/min (>60); Est Glom Filt Rate - Afr Amer 80 mL/min (>60); Estimated Creatinine Clearance 58.59 ml/min; Glucose 109 mg/dL (74-106); Sodium Level 139 mmol/L (136-145)
[2022-10-16 05:22] LABS: Lactic Acid 1.5 mmol/L (0.4-1.9)
[2022-10-16 05:38] LABS: Troponin-I HS 8 pg/mL (3.0-54.0)
[2022-10-16] MEDS: Acetaminophen 325 MG Tablet 650 MG PO ×2 (05:52→16:36)
[2022-10-16 07:24] LABS: Troponin-I HS 7 pg/mL (3.0-54.0)
[2022-10-16 10:47] LABS: Troponin-I HS 7 pg/mL (3.0-54.0)
[2022-10-16] MEDS: oxyCODONE 5 MG Tablet 10 MG PO (10:47)
--- NOTE | 2022-10-16 14:56 | WOUNDNOTE ---
wound photo: left lower leg(medial view)
--- NOTE | 2022-10-16 14:56 | WOUNDNOTE ---
wound photo: left lower leg (anterior view)
--- NOTE | 2022-10-16 14:57 | WOUNDNOTE ---
wound photo: left lateral ankle
--- NOTE | 2022-10-16 15:00 | CASEMGMT ---
RN STEFAN Face to Face with patient for initial transition planning/care coordination assessment. RN CM introduced self and role at [facility]. Patient lying in bed, alert and oriented, sister's at bedside. Patient willing to participate in assessment and is able to answer all questions appropriately. Care providers, pharmacy, and demographics verified. Patient wishes to discharge home, will monitor for HHC at discharge. Patient states she has no further needs or concerns at this time. CM to follow for discharge planning needs that may arise. PCP: [facility] Maddox SEXTON HELPER Specialists: Mirna pain; Jung, crankshaft straightener Preferred Pharmacy: [facility] Insurance: ANA Rai Prescription Benefit: yes Living Will/HPOA: none LNOK: son, sisters Living Arrangements: Patient lives with son in a single story apartment with ramp to enter. Patient states she is independent at home. Transportation: sister, son DME/HHC: Patient has shower chair, cane, walker, wheelchair, hover round, grab bars, bipap with oxygen bleed in at 2lpm through [facility], nebulizer, and pulse ox at home. Patient has had [facility] in the past. Patient has been to [facility] in the past. Patient states she prefers [facility] for HHC if needed and declined list of HHC agencies. Disposition Plan: Patient to discharge home with family support and follow-up plans in place. Will monitor for HHC. Brigette GREEN, RN, CM
[2022-10-16] MEDS: Pramipexole Di-HCl 1 MG Tablet 3 MG PO (22:50)
[2022-10-17] VITALS (13 sets, daily range): BP systolic 110–148; BP diastolic 64–97; PULSE 79–96; RESP 16–20; TEMP 36.5–38.7; O2SAT 92–98
[2022-10-17] MEDS: Ibuprofen 400 MG Tablet PO (00:12)
[2022-10-17] MEDS: oxyCODONE 5 MG Tablet 10 MG PO ×2 (00:16→22:17)
[2022-10-17] MEDS: Acetaminophen 325 MG Tablet 650 MG PO (03:38)
[2022-10-17 07:01] LABS: Absolute Lymphocyte Count 0.97 X10^3/uL (0.83-4.51); Absolute Neutrophil Count 5.6 X10^3/uL (2.0-7.7); Basophil# 0.03 X10^3/uL; Basophil% 0.4 % (0-1); Eosinophil# 0.12 X10^3/uL; Eosinophils% 1.6 % (0-5); Hematocrit 30.1 % (37-47); Hemoglobin 8.7 g/dL (12.0-15.0); Lymphocyte # 0.97 X10^3/ul (0.83-4.51); Lymphocyte % 12.6 % (19-41); Mean Corp Hgb Conc 28.9 g/dL (32-36); Mean Corpuscular Hgb 22.1 pg (27.0-32.0); Mean Corpuscular Volume 76.4 fL (81-99); Mean Platelet Vol. 10.1 fl (6.2-12.0); Monocyte# 0.92 X10^3/uL; Monocyte% 11.9 % (0-10); NRBC Flagged by Analyzer 0 % (0-5); Neutrophil # 5.61 X10^3/uL (2.7-7.7); Neutrophil % 72.7 % (47-70); Platelet Count 225 K/mm3 (150-450); RBC Distribution Width CV 18.5 % (11.6-14.6); RBC Distribution Width SD 51.3 fl (35.1-43.9); Red Blood Count 3.94 M/mm3 (4.2-5.4); White Blood Count 7.7 K/mm3 (4.4-11.0)
[2022-10-17] MEDS: Albuterol 2.5 MG/3 ML VIAL.NEB. INHALATION ×3 (07:33→20:08)
[2022-10-17] MEDS: Budesonide Respules 0.5 MG/2 ML AMPUL.NEB. INHALATION ×2 (07:33→20:08)
[2022-10-17 07:34] LABS: Anion Gap 7 (5-15); BUN 10 mg/dL (7-18); BUN/Creat Ratio 11.9 RATIO (10-20); Calcium,Total 8.4 mg/dL (8.5-10.1); Chloride 103 mmol/L (98-107); Creatinine, Serum 0.84 mg/dL (0.55-1.02); EST Glomerular Filtration Rate 73 mL/min (>60); Est Glom Filt Rate - Afr Amer 88 mL/min (>60); Estimated Creatinine Clearance 64.17 ml/min; Glucose 120 mg/dL (74-106); Potassium 3.6 mmol/L (3.5-5.1); Sodium Level 137 mmol/L (136-145)
[2022-10-17] MEDS: Losartan Potassium 100 MG Tablet PO (09:06)
[2022-10-17] MEDS: Metoprolol(XL)Succ 50 MG Tablet PO (09:06)
[2022-10-17] MEDS: Pantoprazole Sodium 40 MG Tablet PO (09:11)
[2022-10-17] MEDS: Potassium Chloride Oral Tablet 20 MEQ 40 MEQ PO (09:11)
[2022-10-17] MEDS: Famotidine 20 MG Tablet PO ×2 (09:11→20:42)
[2022-10-17] MEDS: Montelukast 10 MG Tablet PO (09:11)
[2022-10-17] MEDS: Linezolid 600 MG 600 MG/300 ML BAG 200 MG IV ×2 (09:17→22:11)
--- NOTE | 2022-10-17 10:30 | CASEMGMT ---
RONAL AVILES called [facility] to confirm oxygen order. Patient is not active with them. RONAL AVILES called [facility], where patient states her bipap is from. [facility] not supply home oxygen. RONAL AVILES reviewed past visits and patient stated previously that she had oxygen through [facility] ([facility] RONAL AVILES called [facility] and patient is not active with them as well. RONAL AVILES in to patient's room and advised patient that when she gets home to review concentrator for DME agencies name. Patient voiced understanding. Patient states she has follow up with Adwoa Cruz WELDER SETTER ELECTRON BEAM MACHINE and will discuss at appointment. Patient had no further questions or concerns at this time.
--- NOTE | 2022-10-17 11:45 | PCM.PN.HOSP ---
Subjective Subjective Doing well, no significant issues overnight, she has been spiking temperatures yesterday so we will keep an eye on her for another 24 hours Objective Data Objective Data Vital Signs: Vital Signs Temp Pulse Resp BP Pulse Ox O2 Del Method O2 Flow Rate 99.2 F H 81 16 133/81 H 92 Room Air 2 10/17/22 09:36 10/17/22 11:25 10/17/22 11:25 10/17/22 09:36 10/17/22 11:25 10/17/22 11:25 10/16/22 21:35 Oxygen Flow Rate (L/min) 2 Oxygen Delivery Method Room Air Weight: 369 lb 7.916 oz Body Mass Index (BMI) 59.3 Intake & Output: Intake and Output for Last 24 Hours 10/16/22 10/17/22 10/18/22 03:59 03:59 03:59 Intake Total 1350.00 / 1350.00 3967.5 / 3967.5 590 / 590 Output Total 700 / 700 250 / 250 Balance 1350.00 / 1350.00 3267.5 / 3267.5 340 / 340 Lab / Micro Data Result Diagrams: 10/17/22 06:10 10/17/22 06:10 Labs: Laboratory Results - last 24 hr 10/17/22 06:10: WBC 7.7, RBC 3.94 L, Hgb 8.7 L, Hct 30.1 L, MCV 76.4 L, MCH 22.1 L, MCHC 28.9 L, RDW Std Deviation 51.3 H, RDW Coeff of Anga 18.5 H, Plt Count 225, MPV 10.1, Immature Gran % (Auto) 0.800, Neut % (Auto) 72.7 H, Lymph % (Auto) 12.6 L, [place] % (Auto) 11.9 H, Eos % (Auto) 1.6, Baso % (Auto) 0.4, Absolute Neuts (auto) 5.6, Absolute Lymphs (auto) 0.97, Nucleated RBC % 0 10/17/22 06:10: Sodium 137, Potassium 3.6, Chloride 103, Carbon Dioxide 27.0, Anion Gap 7, BUN 10, Creatinine 0.84, Estim Creat Clear Calc 64.17, Est GFR (MDRD) Af Amer 88, Est GFR (MDRD) Non-Af 73, BUN/Creatinine Ratio 11.9, Glucose 120 H, Calcium 8.4 L Micro: Microbiology 10/16/22 03:25 Wound - Ankle Gram Stain - Final 10/16/22 03:25 Wound - Ankle Wound Culture - Preliminary Physical Exam Narrative General: Alert, Oriented x3, Cooperative, No apparent distress HEENT: Atraumatic, PERRLA, EOMI, Normocephalic Oral: Moist Mucosa Neck: Supple, No JVD Lungs: Clear to auscultation, Normal air movement, No rhonchi, No wheeze, No rales Cardiovascular: Regular rate, Regular Rhythm, Normal S1, Normal S2, No murmurs Abdomen: Soft, Non Tender, Non-Distended, No Hepato-splenomegaly, obese Extremities: Right BKA, left is swollen with some erythema Skin: 3 areas of skin breakdown on her left lower extremity no obvious signs of purulent infection Musculoskeletal: No Tenderness to Palpation of Joints or Extremities Neurological: Cranial nerves II-XII grossly intact, Motor Exam 5/5 strength throughout, Sensory exam intact to light touch and pain Psych/Mental Status: Normal Affect, Appropriate Assessment & Plan Assessment/Plan (1) Cellulitis of left lower extremity: PLAN: Plan 1. Sepsis secondary to left lower extremity cellulitis ? Wound culture so far is negative for any growth ? Redness is improving with Zyvox and Zosyn though this does appear to be more of a strep infection than a staph infection ? White count has resolved ? Was having elevated temperatures yesterday so we will monitor for another 24 hours if she continues to have elevated temperatures may need to pursue imaging of her lower extremity with a CT scan ? She does have a history of an excising fasciitis back in December 2. HTN ? Blood pressures are stable ? Continue with her home blood pressure medications 3. Recent bilateral PEs ? Stable ? Continue with Eliquis 4. Anxiety/depression ? Continue with her home medications ? Stable 5. GERD ? Stable ? Continue with PPI DVT: Eliquis Charges/Coding Visit Charges Inpatient E&M: 16748 Subs Hosp L2
[2022-10-17] MEDS: APIXABAN 5 MG TABLET PO (12:29)
[2022-10-17] MEDS: FLU VACC QS2022-23(6MOS UP)/PF 60 MCG/0.5 ML SYRINGE IM (12:30)
[2022-10-17] MEDS: Pramipexole Di-HCl 1 MG Tablet 3 MG PO (20:43)
[2022-10-17] MEDS: 0.9% Saline Lock 10 ML Syringe IV (22:18)
[2022-10-18] VITALS (8 sets, daily range): BP systolic 103–119; BP diastolic 54–82; PULSE 81–90; RESP 16–18; TEMP 36.9–37.6; O2SAT 92–96
[2022-10-18 06:42] LABS: Absolute Lymphocyte Count 1.11 X10^3/uL (0.83-4.51); Absolute Neutrophil Count 4.5 X10^3/uL (2.0-7.7); Basophil# 0.03 X10^3/uL; Basophil% 0.5 % (0-1); Eosinophil# 0.19 X10^3/uL; Eosinophils% 2.9 % (0-5); Hematocrit 27.7 % (37-47); Lymphocyte # 1.11 X10^3/ul (0.83-4.51); Lymphocyte % 16.7 % (19-41); Mean Corp Hgb Conc 28.9 g/dL (32-36); Mean Corpuscular Volume 76.3 fL (81-99); Mean Platelet Vol. 10.2 fl (6.2-12.0); NRBC Flagged by Analyzer 0 % (0-5); Neutrophil # 4.49 X10^3/uL (2.7-7.7); Neutrophil % 67.3 % (47-70); Platelet Count 265 K/mm3 (150-450); RBC Distribution Width CV 18.5 % (11.6-14.6); RBC Distribution Width SD 51.4 fl (35.1-43.9); Red Blood Count 3.63 M/mm3 (4.2-5.4); White Blood Count 6.7 K/mm3 (4.4-11.0)
[2022-10-18 06:59] LABS: Anion Gap 6 (5-15); BUN 12 mg/dL (7-18); BUN/Creat Ratio 12.8 RATIO (10-20); Calcium,Total 8.4 mg/dL (8.5-10.1); Chloride 105 mmol/L (98-107); Creatinine, Serum 0.94 mg/dL (0.55-1.02); EST Glomerular Filtration Rate 64 mL/min (>60); Est Glom Filt Rate - Afr Amer 77 mL/min (>60); Estimated Creatinine Clearance 57.35 ml/min; Glucose 101 mg/dL (74-106); Potassium 4.4 mmol/L (3.5-5.1); Sodium Level 139 mmol/L (136-145)
[2022-10-18] MEDS: Albuterol 2.5 MG/3 ML VIAL.NEB. INHALATION (07:10)
[2022-10-18] MEDS: Budesonide Respules 0.5 MG/2 ML AMPUL.NEB. INHALATION (07:10)
[2022-10-18] MEDS: Potassium Chloride Oral Tablet 20 MEQ 40 MEQ PO (08:18)
[2022-10-18] MEDS: Famotidine 20 MG Tablet PO ×2 (08:19→21:06)
[2022-10-18] MEDS: Pantoprazole Sodium 40 MG Tablet PO (08:19)
[2022-10-18] MEDS: Metoprolol(XL)Succ 50 MG Tablet PO (08:19)
[2022-10-18] MEDS: Montelukast 10 MG Tablet PO (08:20)
[2022-10-18] MEDS: APIXABAN 5 MG TABLET PO (08:20)
[2022-10-18] MEDS: Losartan Potassium 100 MG Tablet PO (08:20)
--- NOTE | 2022-10-18 10:09 | CT_ITS ---
STUDY: CT SCAN OF LOWER EXTREMITY LEFT REASON FOR EXAM: Female, 62 years old. Cellulitis with possible abscess RADIATION DOSAGE (If Supplied By Facility): CTDIvol = ( 45.70 ) mGy, DLP = ( 5237.96 ) mGycm. Individualized dose optimization techniques were used for this CT.? TECHNIQUE: Multiple axial tomographic images of the left lower extremity were obtained. Coronal and sagittal reconstruction was obtained as well. COMPARISON: None. FINDINGS: The patient is status post total knee replacement. There is good alignment. No acute fracture or dislocation is seen. Mild enlargement of the left inguinal lymph nodes. Diffuse increased markings in the subcutaneous tissues overlying the thigh extending down into the leg down to the region of the ankle joint. This is more pronounced in the lower leg. There is evidence of overlying skin thickening more pronounced in the lower portion of the leg. No focal abscess or fluid collection is seen. CT/Extremity Lower WITH Contrast IMPRESSION: Diffuse subcutaneous increased markings in the left lower extremity worse in the left lower leg with overlying skin thickening. No focal fluid collection or abscess is seen. The patient is status post left total knee replacement. Enlarged left inguinal lymph nodes. Electronically Signed: Sean Cotton MD at 12:58 EST ,
--- NOTE | 2022-10-18 10:12 | PN.HOSP_ITS ---
Subjective Subjective Doing well today, she has continued redness on the medial lateral aspect of her upper thigh with some warmth. No fevers and white count is stable Objective Data Objective Data Vital Signs: Vital Signs Temp Pulse Resp BP Pulse Ox O2 Del Method O2 Flow Rate 98.7 F 90 17 119/68 93 Room Air 2 10/18/22 08:17 10/18/22 08:19 10/18/22 08:17 10/18/22 08:19 10/18/22 08:17 10/18/22 08:17 10/17/22 23:06 Oxygen Flow Rate (L/min) 2 Oxygen Delivery Method Room Air Weight: 369 lb 7.916 oz Body Mass Index (BMI) 59.3 Intake & Output: Intake and Output for Last 24 Hours 10/17/22 10/18/22 10/19/22 03:59 03:59 03:59 Intake Total 3967.5 / 3967.5 990 / 990 Output Total 700 / 700 550 / 550 Balance 3267.5 / 3267.5 440 / 440 Lab / Micro Data Result Diagrams: 10/18/22 05:55 10/18/22 05:55 Labs: Laboratory Results - last 24 hr 10/18/22 05:55: WBC 6.7, RBC 3.63 L, Hgb 8.0 L, Hct 27.7 L, MCV 76.3 L, MCH 22.0 L, MCHC 28.9 L, RDW Std Deviation 51.4 H, RDW Coeff of Naga 18.5 H, Plt Count 265, MPV 10.2, Immature Gran % (Auto) 0.600, Neut % (Auto) 67.3, Lymph % (Auto) 16.7 L, [place] % (Auto) 12.0 H, Eos % (Auto) 2.9, Baso % (Auto) 0.5, Absolute Neuts (auto) 4.5, Absolute Lymphs (auto) 1.11, Nucleated RBC % 0 10/18/22 05:55: Sodium 139, Potassium 4.4, Chloride 105, Carbon Dioxide 28.0, Anion Gap 6, BUN 12, Creatinine 0.94, Estim Creat Clear Calc 57.35, Est GFR (MDRD) Af Amer 77, Est GFR (MDRD) Non-Af 64, BUN/Creatinine Ratio 12.8, Glucose 101, Calcium 8.4 L Micro: Microbiology 10/16/22 03:25 Wound - Ankle Gram Stain - Final 10/16/22 03:25 Wound - Ankle Wound Culture - Preliminary Staphylococcus aureus Physical Exam Narrative General: Alert, Oriented x3, Cooperative, No apparent distress HEENT: Atraumatic, PERRLA, EOMI, Normocephalic Oral: Moist Mucosa Neck: Supple, No JVD Lungs: Clear to auscultation, Normal air movement, No rhonchi, No wheeze, No rales Cardiovascular: Regular rate, Regular Rhythm, Normal S1, Normal S2, No murmurs Abdomen: Soft, Non Tender, Non-Distended, No Hepato-splenomegaly, obese Extremities: Right BKA, left is swollen with some erythema on the medial and lateral aspects of her upper thigh Skin: 3 areas of skin breakdown on her left lower extremity no obvious signs of purulent infection Musculoskeletal: No Tenderness to Palpation of Joints or Extremities Neurological: Cranial nerves II-XII grossly intact, Motor Exam 5/5 strength throughout, Sensory exam intact to light touch and pain Psych/Mental Status: Normal Affect, Appropriate Assessment & Plan Assessment/Plan (1) Cellulitis of left lower extremity: PLAN: Plan 1. Sepsis secondary to left lower extremity cellulitis ? Wound culture with staph aureus ? Redness is improving with Zyvox and Zosyn, she is concerned as she does have a history in that leg for necrotizing fasciitis so we will proceed with a CT scan given the continued redness to evaluate for possible deeper abscesses ? White count has resolved ? She has remained afebrile and she has not received any Tylenol for 24 hours ? She does have a history of an necrotizing fasciitis back in December 2. HTN ? Blood pressures are stable ? Continue with her home blood pressure medications 3. Recent bilateral PEs ? Stable ? Continue with Eliquis 4. Anxiety/depression ? Continue with her home medications ? Stable 5. GERD ? Stable ? Continue with PPI 6. Iron deficiency anemia ? On review of her medical records, she has been anemic since about March and she has had iron studies in the past that showed a low iron and a low and iron saturation with a normal TIBC and normal ferritin this is consistent with iron deficiency anemia I do not see any records of her being placed on iron supplementation ? We will check iron studies again today just to make sure, we will forego a ferritin given her cellulitis it will be elevated and therefore inconclusive. If her iron and her iron binding capacity are consistent with a iron deficiency anemia specially in the setting of her microcytosis, will give her a dose of IV iron and start her on oral replacement DVT: Trudy
[2022-10-18 10:41] LABS: Iron 17 ug/dL (50-170); Iron Binding Capacity,Total 313 ug/dL (250-450); PERCENT IRON SATURATION 5.4 % (15.0-55.0)
--- NOTE | 2022-10-18 11:35 | CASEMGMT ---
Addendum entered by River Mckeon 10/18/22 14:07: Pt states she has done her own daily dressing changes in the past and either her son or her sister can assist daily, as needed. [facility] made aware. They are able to accept pt. RONAL AVILES to notify [facility] once discharge date determined. Original Note: RONAL AVILES NOTE: PT/OT notes reviewed. Additional therapy recommended. RONAL AVILES to room to discuss discharge planning w/pt. Introduced self and role. Pt made aware therapy is recommending further therapy. Pt states she would like [facility] and states she does feel she is currently homebound. Pt confirms she prefers [facility]. Order placed for [facility]: SN, PT/OT. Call placed to [facility] and referral made. Awaiting response re: acceptance. Sarah Beth GREEN RN CM
[2022-10-18] MEDS: Linezolid 600 MG 600 MG/300 ML BAG 200 MG IV ×2 (15:39→21:02)
[2022-10-18] MEDS: Pramipexole Di-HCl 1 MG Tablet 3 MG PO (21:06)
[2022-10-18] MEDS: 0.9% Saline Lock 10 ML Syringe IV (21:06)
[2022-10-18] MEDS: oxyCODONE 5 MG Tablet 10 MG PO (21:09)
[2022-10-19] VITALS (8 sets, daily range): BP systolic 104–130; BP diastolic 60–76; PULSE 70–86; RESP 14–18; TEMP 36.6–37.2; O2SAT 93–97
[2022-10-19] MEDS: 0.9% Saline Lock 10 ML Syringe IV ×3 (05:18→22:01)
[2022-10-19 05:45] LABS: Absolute Lymphocyte Count 1.18 X10^3/uL (0.83-4.51); Absolute Neutrophil Count 3.4 X10^3/uL (2.0-7.7); Basophil# 0.04 X10^3/uL; Basophil% 0.7 % (0-1); Eosinophil# 0.22 X10^3/uL; Eosinophils% 3.9 % (0-5); Hematocrit 28.9 % (37-47); Hemoglobin 8.1 g/dL (12.0-15.0); Lymphocyte # 1.18 X10^3/ul (0.83-4.51); Lymphocyte % 20.7 % (19-41); Mean Corpuscular Hgb 22.2 pg (27.0-32.0); Mean Corpuscular Volume 79.2 fL (81-99); Mean Platelet Vol. 10.4 fl (6.2-12.0); Monocyte# 0.83 X10^3/uL; Monocyte% 14.6 % (0-10); NRBC Flagged by Analyzer 0.7 % (0-5); Neutrophil # 3.37 X10^3/uL (2.7-7.7); Neutrophil % 59.2 % (47-70); Platelet Count 236 K/mm3 (150-450); RBC Distribution Width CV 18.5 % (11.6-14.6); RBC Distribution Width SD 53.4 fl (35.1-43.9); Red Blood Count 3.65 M/mm3 (4.2-5.4); White Blood Count 5.7 K/mm3 (4.4-11.0)
[2022-10-19 06:05] LABS: Anion Gap 6 (5-15); BUN 13 mg/dL (7-18); BUN/Creat Ratio 15.5 RATIO (10-20); Calcium,Total 8.4 mg/dL (8.5-10.1); Chloride 104 mmol/L (98-107); Creatinine, Serum 0.84 mg/dL (0.55-1.02); EST Glomerular Filtration Rate 73 mL/min (>60); Est Glom Filt Rate - Afr Amer 88 mL/min (>60); Estimated Creatinine Clearance 64.17 ml/min; Glucose 94 mg/dL (74-106); Potassium 4.5 mmol/L (3.5-5.1); Sodium Level 136 mmol/L (136-145)
[2022-10-19] MEDS: Budesonide Respules 0.5 MG/2 ML AMPUL.NEB. INHALATION ×2 (06:50→19:36)
[2022-10-19] MEDS: Albuterol 2.5 MG/3 ML VIAL.NEB. INHALATION ×3 (06:50→19:36)
[2022-10-19] MEDS: Montelukast 10 MG Tablet PO (09:23)
[2022-10-19] MEDS: Famotidine 20 MG Tablet PO ×2 (09:23→22:01)
[2022-10-19] MEDS: Pantoprazole Sodium 40 MG Tablet PO (09:24)
[2022-10-19] MEDS: APIXABAN 5 MG TABLET PO ×2 (09:25→22:01)
[2022-10-19] MEDS: Potassium Chloride Oral Tablet 20 MEQ 40 MEQ PO (09:25)
[2022-10-19] MEDS: Losartan Potassium 100 MG Tablet PO (09:25)
[2022-10-19] MEDS: Metoprolol(XL)Succ 50 MG Tablet PO (09:25)
[2022-10-19] MEDS: Furosemide 40 MG/4 ML Vial IV (09:50)
--- NOTE | 2022-10-19 11:47 | PCM.PN.HOSP ---
Subjective Subjective Doing well today, remains afebrile and leukocytosis continues to improve however she still has dependent edema and redness in her left lower extremity Objective Data Objective Data Vital Signs: Vital Signs Temp Pulse Resp BP Pulse Ox O2 Del Method O2 Flow Rate 97.8 F 86 17 116/65 95 Room Air 2 10/19/22 09:20 10/19/22 09:25 10/19/22 09:20 10/19/22 09:25 10/19/22 09:20 10/19/22 09:30 10/17/22 23:06 Oxygen Flow Rate (L/min) 2 Oxygen Delivery Method Room Air Weight: 369 lb 7.916 oz Body Mass Index (BMI) 59.3 Intake & Output: Intake and Output for Last 24 Hours 10/18/22 10/19/22 10/20/22 03:59 03:59 03:59 Intake Total 990 / 990 1740 / 1740 50 / 50 Output Total 550 / 550 800 / 800 200 / 200 Balance 440 / 440 940 / 940 -150 / -150 Lab / Micro Data Result Diagrams: 10/19/22 04:53 10/19/22 04:53 Labs: Laboratory Results - last 24 hr 10/19/22 04:53: WBC 5.7, RBC 3.65 L, Hgb 8.1 L, Hct 28.9 L, MCV 79.2 L, MCH 22.2 L, MCHC 28.0 L, RDW Std Deviation 53.4 H, RDW Coeff of Naga 18.5 H, Plt Count 236, MPV 10.4, Immature Gran % (Auto) 0.900, Neut % (Auto) 59.2, Lymph % (Auto) 20.7, [place] % (Auto) 14.6 H, Eos % (Auto) 3.9, Baso % (Auto) 0.7, Absolute Neuts (auto) 3.4, Absolute Lymphs (auto) 1.18, Nucleated RBC % 0.7 10/19/22 04:53: Sodium 136, Potassium 4.5, Chloride 104, Carbon Dioxide 26.0, Anion Gap 6, BUN 13, Creatinine 0.84, Estim Creat Clear Calc 64.17, Est GFR (MDRD) Af Amer 88, Est GFR (MDRD) Non-Af 73, BUN/Creatinine Ratio 15.5, Glucose 94, Calcium 8.4 L Micro: Microbiology 10/15/22 23:40 Blood Culture (Wb) - Arm Left Blood Culture - Preliminary No growth in 48 hours. 10/15/22 23:58 Blood Culture (Wb) - Arm Left Blood Culture - Preliminary No growth in 48 hours. 10/16/22 03:25 Wound - Ankle Gram Stain - Final 10/16/22 03:25 Wound - Ankle Wound Culture - Final Staphylococcus aureus Streptococcus pyogenes Radiography Diagnostic Testing: Radiology Impression Lower Extremity CT 10/18/22 10:09 IMPRESSION: Diffuse subcutaneous increased markings in the left lower extremity worse in the left lower leg with overlying skin thickening. No focal fluid collection or abscess is seen. The patient is status post left total knee replacement. Enlarged left inguinal lymph nodes. Electronically Signed: Sean Cotton MD at 12:58 EST , Physical Exam Narrative General: Alert, Oriented x3, Cooperative, No apparent distress HEENT: Atraumatic, PERRLA, EOMI, Normocephalic Oral: Moist Mucosa Neck: Supple, No JVD Lungs: Clear to auscultation, Normal air movement, No rhonchi, No wheeze, No rales Cardiovascular: Regular rate, Regular Rhythm, Normal S1, Normal S2, No murmurs Abdomen: Soft, Non Tender, Non-Distended, No Hepato-splenomegaly, obese Extremities: Right BKA, left is swollen with some erythema on the medial and lateral aspects of her upper thigh Skin: 3 areas of skin breakdown on her left lower extremity no obvious signs of purulent infection Musculoskeletal: No Tenderness to Palpation of Joints or Extremities Neurological: Cranial nerves II-XII grossly intact, Motor Exam 5/5 strength throughout, Sensory exam intact to light touch and pain Psych/Mental Status: Normal Affect, Appropriate Assessment & Plan Assessment/Plan (1) Cellulitis of left lower extremity: PLAN: Plan 1. Sepsis secondary to left lower extremity cellulitis ? Wound culture with MSSA and strep pyogenes ? CT scans negative for any abscess, will give her a dose of IV Lasix to help with the swelling in her left lower extremity, encouraged her to get out of bed and ambulate ? We will transition her antibiotics to p.o. Keflex and monitor for another 24 hours ? White count has resolved ?She does have an appointment with the orthopedic surgeon who had done some of her wound infection surgeries, this Sunday ? She does have a history of an necrotizing fasciitis back in December 31. HTN ? Blood pressures are stable ? Continue with her home blood pressure medications 3. Recent bilateral PEs ? Stable ? Continue with Eliquis 4. Anxiety/depression ? Continue with her home medications ? Stable 5. GERD ? Stable ? Continue with PPI 6. Iron deficiency anemia ? Iron studies did demonstrate iron deficiency anemia, she did get a dose of Venofer yesterday, will transition her to oral replacement ? She is on a PPI so we will also start her on vitamin C whenever she takes her iron. DVT: Trudy Charges/Coding Visit Charges Inpatient E&M: 34129 Subs Hosp L2
[2022-10-19] MEDS: Ascorbic Acid 500 MG Tablet PO ×2 (12:03→17:19)
[2022-10-19] MEDS: Ferrous Sulfate 325 MG Tablet PO ×2 (12:03→17:19)
[2022-10-19] MEDS: Cephalexin 500 MG Capsule PO ×3 (12:03→23:48)
--- NOTE | 2022-10-19 15:00 | CASEMGMT ---
RONAL AVILES received call from Anette at [facility]. Per Anette patient will have to pay for dressing supplies and inquired if patient was still wanting HHC. RONAL AVILES back to patient's room to updated about dressing supplies not being covered by [facility] and she would be resposible for copay. Patient states she does not want [facility] services if her dressing supplies are not covered. RONAL AVILES updated [facility] regarding canceled referral. STEFAN will continue to follow this patient and plan for a safe discharge.
[2022-10-19] MEDS: Pramipexole Di-HCl 1 MG Tablet 3 MG PO (22:01)
[2022-10-19] MEDS: oxyCODONE 5 MG Tablet 10 MG PO (22:01)
[2022-10-20 03:45] VITALS: BP 130/90; PULSE 82; RESP 18; TEMP 36.6; O2SAT 95
[2022-10-20] MEDS: Albuterol 2.5 MG/3 ML VIAL.NEB. INHALATION (04:09)
[2022-10-20 04:10] VITALS: PULSE 86; RESP 16
[2022-10-20 04:38] LABS: Absolute Lymphocyte Count 1.87 X10^3/uL (0.83-4.51); Basophil# 0.03 X10^3/uL; Basophil% 0.5 % (0-1); Eosinophil# 0.18 X10^3/uL; Hematocrit 30.1 % (37-47); Hemoglobin 8.9 g/dL (12.0-15.0); Lymphocyte # 1.87 X10^3/ul (0.83-4.51); Lymphocyte % 31.6 % (19-41); Mean Corp Hgb Conc 29.6 g/dL (32-36); Mean Corpuscular Hgb 22.2 pg (27.0-32.0); Mean Corpuscular Volume 75.1 fL (81-99); Mean Platelet Vol. 9.5 fl (6.2-12.0); Monocyte# 0.77 X10^3/uL; NRBC Flagged by Analyzer 0 % (0-5); Neutrophil # 2.98 X10^3/uL (2.7-7.7); Neutrophil % 50.5 % (47-70); Platelet Count 311 K/mm3 (150-450); RBC Distribution Width CV 18.4 % (11.6-14.6); RBC Distribution Width SD 50.1 fl (35.1-43.9); Red Blood Count 4.01 M/mm3 (4.2-5.4); White Blood Count 5.9 K/mm3 (4.4-11.0)
[2022-10-20 05:08] LABS: Anion Gap 7 (5-15); BUN 14 mg/dL (7-18); BUN/Creat Ratio 17.3 RATIO (10-20); Calcium,Total 8.7 mg/dL (8.5-10.1); Chloride 103 mmol/L (98-107); Creatinine, Serum 0.81 mg/dL (0.55-1.02); EST Glomerular Filtration Rate 76 mL/min (>60); Est Glom Filt Rate - Afr Amer 92 mL/min (>60); Estimated Creatinine Clearance 66.55 ml/min; Glucose 101 mg/dL (74-106); Potassium 3.8 mmol/L (3.5-5.1); Sodium Level 138 mmol/L (136-145)
[2022-10-20] MEDS: 0.9% Saline Lock 10 ML Syringe IV ×2 (06:03→13:26)
[2022-10-20] MEDS: Cephalexin 500 MG Capsule PO ×2 (06:03→12:17)
[2022-10-20 07:32] VITALS: PULSE 92; RESP 20; O2SAT 98
[2022-10-20] MEDS: Budesonide Respules 0.5 MG/2 ML AMPUL.NEB. INHALATION (07:32)
[2022-10-20 09:47] VITALS: BP 127/68; PULSE 85; RESP 18; TEMP 36.7; O2SAT 98
[2022-10-20 09:50] VITALS: PULSE 85
[2022-10-20] MEDS: Famotidine 20 MG Tablet PO (09:50)
[2022-10-20] MEDS: Losartan Potassium 100 MG Tablet PO (09:50)
[2022-10-20] MEDS: Pantoprazole Sodium 40 MG Tablet PO (09:50)
[2022-10-20] MEDS: Metoprolol(XL)Succ 50 MG Tablet PO (09:50)
[2022-10-20] MEDS: Montelukast 10 MG Tablet PO (09:50)
[2022-10-20] MEDS: Potassium Chloride Oral Tablet 20 MEQ 40 MEQ PO (09:51)
[2022-10-20] MEDS: APIXABAN 5 MG TABLET PO (09:51)
--- NOTE | 2022-10-20 11:06 | PCM.DC ---
Discharge Instructions Diet Discharge Diet: Low fat / Low cholesterol Activity Discharge Activity: Return to Normal Activity Dressing / Incision Call your doctor if you observe: Fever of 101 or Higher, Shortness of breath, Dizziness, Fainting spells, Swelling in the ankles, Chest pain and Increased palpitations (irregular heartbeat) Follow Up Care Test Results: Test results from this visit will be discussed in further detail at your follow-up appointment, if applicable. Discharge Plan Admission Admit Date/Time: 10/16/22 01:31 Attending Provider: Rigo Trinidad Primary Care Provider: Butch Maddox NP Consulting Providers: Mag Cantu Discharge Orders/Prescriptions Prescriptions: New ascorbic acid (vitamin C) 500 mg Tablet 500 mg PO 1200,1700 30 Days Qty: 60 0RF Rx Instructions: take with iron cephalexin 500 mg Capsule 500 mg PO Q6 10 Days Qty: 40 0RF ferrous sulfate [FeroSul] 325 mg (65 mg iron) Tablet 325 mg PO 1200,1700 30 Days Qty: 60 0RF Continued albuterol sulfate 90 mcg/actuation HFA aerosol inhaler 2 puff inhalation Q6H PRN (Reason: shortness of breath or wheezing) Qty: 8.5 6RF Rx Instructions: administer with spacer potassium chloride 20 MEQ tablet 40 meq PO DAILY valsartan 320 mg tablet 320 mg PO DAILY omeprazole 40 mg capsule,delayed release(DR/EC) 40 mg PO DAILY pramipexole 1.5 mg tablet 3 mg PO QHS cyclobenzaprine 10 MG tablet 10 mg PO QHS PRN (Reason: muscle spasm) Qty: 0 0RF Label Comments: muscle relaxer famotidine 20 mg Tablet 20 mg PO BID amitriptyline 100 mg tablet 100 mg PO QHS cholecalciferol (vitamin D3) 1,250 mcg (50,000 unit) capsule 1,250 mcg PO MO Label Comments: TAKE 1 CAPSULE BY MOUTH EVERY WEEK metoprolol succinate 50 mg tablet extended release 24 hr 50 mg PO DAILY Label Comments: TAKE 1 TABLET BY MOUTH EVERY DAY montelukast 10 mg Tablet 10 mg PO DAILY escitalopram oxalate 20 mg tablet 20 mg PO DAILY Label Comments: TAKE 1 TABLET BY MOUTH ONCE DAILY FOR 30 DAYS. STOP CELEXA. duloxetine 30 mg capsule,delayed release(DR/EC) 30 mg PO DAILY Label Comments: TAKE 1 CAPSULE BY MOUTH 1 (ONE) budesonide-formoterol [Symbicort] 160-4.5 mcg/actuation HFA aerosol inhaler 2 puff inhalation BID Rx Instructions: administer with spacer, rinse mouth after each use apixaban 5 mg tablet 5 mg PO BID Referrals / Follow Up: Rusty Ramsey MD [Non-Staff] - 10/23/22 Butch Maddox LANDSCAPE PAINTER, [employer] [Primary Care Provider] - Within 1 Week Disposition Disposition (needs filled in before D/C Order can be placed): Home, Self Care
[2022-10-20] MEDS: Ascorbic Acid 500 MG Tablet PO (12:17)
[2022-10-20] MEDS: Ferrous Sulfate 325 MG Tablet PO (12:17)
--- NOTE | 2022-10-20 12:43 | PHA.DC.MC ---
Pharmacy Service has performed discharge medication reconciliation and counseling for this patient. The patient was counseled on the following discharge medications and changes in medications for homegoing were reviewed. 1. CEPHALEXIN 2. FERROUS SULFATE 3. ASCORBIC ACID The Reason for Use, instructions for use, and potential side effects were reviewed for all new medications. The patient's questions regarding all of their medications were answered. The patient was able to verbally demonstrate an understanding of their discharge medications. Home Medications potassium chloride 20 mEq tablet,extended release(part/cryst) 40 meq PO DAILY supplement 11/01/18 albuterol sulfate 90 mcg/actuation aerosol inhaler 2 puff inhalation Q6H PRN shortness of breath or wheezing #8.5 grams 05/11/21 valsartan 320 mg tablet 320 mg PO DAILY heart 05/19/21 omeprazole 40 mg capsule,delayed release 40 mg PO DAILY gerd 06/15/21 pramipexole 1.5 mg tablet 3 mg PO QHS rls 06/15/21 cyclobenzaprine 10 mg tablet 10 mg PO QHS PRN muscle spasm #0 tabs 03/09/22 amitriptyline 100 mg tablet 100 mg PO QHS PAIN AND SLEEP 08/31/22 cholecalciferol (vitamin D3) 1,250 mcg (50,000 unit) capsule 1,250 mcg PO MO SUPPLEMENT 08/31/22 famotidine 20 mg tablet 20 mg PO BID GERD 08/31/22 apixaban 5 mg tablet 5 mg PO BID blood thinner 10/16/22 budesonide-formoterol HFA 160 mcg-4.5 mcg/actuation aerosol inhaler (Symbicort) 2 puff inhalation BID asthma 10/16/22 duloxetine 30 mg capsule,delayed release 30 mg PO DAILY depression 10/16/22 escitalopram oxalate 20 mg tablet 20 mg PO DAILY depression 10/16/22 metoprolol succinate 50 mg tablet,extended release 24 hr 50 mg PO DAILY blood pressure 10/16/22 montelukast 10 mg tablet 10 mg PO DAILY asthma 10/16/22 ascorbic acid (vitamin C) 500 mg tablet 500 mg PO 1200,1700 30 days #60 tabs 10/20/22 cephalexin 500 mg capsule 500 mg PO Q6 10 days #40 caps 10/20/22 ferrous sulfate 325 mg (65 mg iron) tablet (FeroSul) 325 mg PO 1200,1700 30 days #60 tabs 10/20/22 The patient's discharge medication list was reviewed for discrepancies and discrepancies were resolved.
[2022-10-20 13:13] VITALS: BP 141/98; PULSE 92; RESP 18; TEMP 37; O2SAT 97
[2022-10-20] MEDS: Furosemide 40 MG/4 ML Vial IV (13:26)
--- NOTE | 2022-10-20 14:46 | DS.PCM_ITS ---
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 Sepsis secondary to left lower extremity cellulitis ? Wound culture with MSSA and strep pyogenes ? CT scans negative for any abscess, will give her a dose of IV Lasix to help with the swelling in her left lower extremity, encouraged her to get out of bed and ambulate ? We will transition her antibiotics to p.o. Keflex and monitor for another 24 hours ? White count has resolved ?She does have an appointment with the orthopedic surgeon who had done some of her wound infection surgeries, this Sunday ? She does have a history of an necrotizing fasciitis back in December 2. HTN ? Blood pressures are stable ? Continue with her home blood pressure medications 3. Recent bilateral PEs ? Stable ? Continue with Eliquis 4. Anxiety/depression ? Continue with her home medications ? Stable 5. GERD ? Stable ? Continue with PPI 6. Iron deficiency anemia ? Iron studies did demonstrate iron deficiency anemia, she did get a dose of Venofer yesterday, will transition her to oral replacement ? She is on a PPI so we will also start her on vitamin C whenever she takes her iron. DVT: Eliquis Medications at Discharge Home Medications potassium chloride 20 mEq tablet,extended release(part/cryst) 40 meq PO DAILY supplement 11/01/18 albuterol sulfate 90 mcg/actuation aerosol inhaler 2 puff inhalation Q6H PRN shortness of breath or wheezing #8.5 grams 05/11/21 valsartan 320 mg tablet 320 mg PO DAILY heart 05/19/21 omeprazole 40 mg capsule,delayed release 40 mg PO DAILY gerd 06/15/21 pramipexole 1.5 mg tablet 3 mg PO QHS rls 06/15/21 cyclobenzaprine 10 mg tablet 10 mg PO QHS PRN muscle spasm #0 tabs 03/09/22 amitriptyline 100 mg tablet 100 mg PO QHS PAIN AND SLEEP 08/31/22 cholecalciferol (vitamin D3) 1,250 mcg (50,000 unit) capsule 1,250 mcg PO MO SUPPLEMENT 08/31/22 famotidine 20 mg tablet 20 mg PO BID GERD 08/31/22 apixaban 5 mg tablet 5 mg PO BID blood thinner 10/16/22 budesonide-formoterol HFA 160 mcg-4.5 mcg/actuation aerosol inhaler (Symbicort) 2 puff inhalation BID asthma 10/16/22 duloxetine 30 mg capsule,delayed release 30 mg PO DAILY depression 10/16/22 escitalopram oxalate 20 mg tablet 20 mg PO DAILY depression 10/16/22 metoprolol succinate 50 mg tablet,extended release 24 hr 50 mg PO DAILY blood pressure 10/16/22 montelukast 10 mg tablet 10 mg PO DAILY asthma 10/16/22 ascorbic acid (vitamin C) 500 mg tablet 500 mg PO 1200,1700 30 days #60 tabs 10/20/22 cephalexin 500 mg capsule 500 mg PO Q6 10 days #40 caps 10/20/22 ferrous sulfate 325 mg (65 mg iron) tablet (FeroSul) 325 mg PO 1200,1700 30 days #60 tabs 10/20/22 Hospital Course Operations None Procedures None Summary of Care Provided Minutes Spent on Discharge: 42 Hospital Course: Per HPI: SAULO PUENTES, is a 62 F with a PMH as outlined who presents via the ED with a complaint of redness, pain and swelling of the left lower extremity which started on the morning of admission. She had associated fever. She also noted some discharge from her LLE. Pain, redness, swelling and fever with associated chills persisted so she came in to the ED. She was recently admitted in August 2022 for cellulitis of the RKE which improved with administration of IV antibiotics. She had necrotising fasciitis of the LLE in December 2021 and had fasciotomy done at [facility]. Vitals in the ED at time of review were BP of 128/44, RR of 33, NH of 99 and temp of 100.8F. She was saturating at 96% on room air. CBC showed wbc of 12.4, Hb of 9.3 and platelets of 301. INR is 1 and chemistry was unremarkable. ESR was 46 and CRP was 18. XRay of the left tibia, fibula and ankle showed diffuse soft tissue swelling and no evidence of osteomyelitis. SHe is being admitted to be managed for cellulitis of hte LLE. She was started on IV linezolid and zosyn in the ED. Hospital Course: 1.? Sepsis secondary to left lower extremity cellulitis ? Wound culture with MSSA and strep pyogenes ? CT scans negative for any abscess, will give her a dose of IV Lasix to help with the swelling in her left lower extremity, encouraged her to get out of bed and ambulate ? We will transition her antibiotics to p.o. Keflex and monitor for another 24 hours ? White count has resolved ?She does have an appointment with the orthopedic surgeon who had done some of her wound infection surgeries, this Sunday ? She does have a history of an necrotizing fasciitis back in December ? She is feeling well today, she was transitioned to oral antibiotics yesterday without any worsening in her symptoms. Give her 1 more dose of IV Lasix today to help reduce swelling, encouraged increased ambulation. I discussed with her the plan for discharge today and she expressed understanding of the risk benefits going home and would like to go home today. We did discuss at length reasons why to come back to the hospital. I do recommend that she follow-up with her PCP next week as well. I do recommend following up her iron levels secondary to her iron deficiency anemia that she is being treated for currently. 2.? HTN ? Blood pressures are stable ? Continue with her home blood pressure medications 3.? Recent bilateral PEs ? Stable ? Continue with Eliquis 4.? Anxiety/depression ? Continue with her home medications ? Stable 5.? GERD ? Stable ? Continue with PPI 6.? Iron deficiency anemia ? Iron studies did demonstrate iron deficiency anemia, she did get a dose of Venofer yesterday, will transition her to oral replacement ? She is on a PPI so we will also start her on vitamin C whenever she takes her iron. Physical Exam Narrative General: Alert, Oriented x3, Cooperative, No apparent distress HEENT: Atraumatic, PERRLA, EOMI, Normocephalic Oral: Moist Mucosa Neck: Supple, No JVD Lungs: Clear to auscultation, Normal air movement, No rhonchi, No wheeze, No rales Cardiovascular: Regular rate, Regular Rhythm, Normal S1, Normal S2, No murmurs Abdomen: Soft, Non Tender, Non-Distended, No Hepato-splenomegaly, obese Extremities: Right BKA, left is swollen with some erythema on the medial and lateral aspects of her upper thigh Skin: 3 areas of skin breakdown on her left lower extremity no obvious signs of purulent infection Musculoskeletal: No Tenderness to Palpation of Joints or Extremities Neurological: Cranial nerves II-XII grossly intact, Motor Exam 5/5 strength throughout, Sensory exam intact to light touch and pain Psych/Mental Status: Normal Affect, Appropriate Weight / BMI Weight Weight: 369 lb 7.916 oz Body Mass Index (BMI) 59.3 ABG / Lab / Microbiology Data Result Diagrams: 10/20/22 04:30 10/20/22 04:30 Laboratory: Laboratory Results - last 24 hr 10/20/22 04:30: WBC 5.9, RBC 4.01 L, Hgb 8.9 L, Hct 30.1 L, MCV 75.1 L D, MCH 22.2 L, MCHC 29.6 L D, RDW Std Deviation 50.1 H, RDW Coeff of Naga 18.4 H, Plt Count 311, MPV 9.5, Immature Gran % (Auto) 1.400 H, Neut % (Auto) 50.5, Lymph % (Auto) 31.6, Angelina % (Auto) 13.0 H, Eos % (Auto) 3.0, Baso % (Auto) 0.5, Absolute Neuts (auto) 3.0, Absolute Lymphs (auto) 1.87, Nucleated RBC % 0 10/20/22 04:30: Sodium 138, Potassium 3.8, Chloride 103, Carbon Dioxide 28.0, Anion Gap 7, BUN 14, Creatinine 0.81, Estim Creat Clear Calc 66.55, Est GFR (MDRD) Af Amer 92, Est GFR (MDRD) Non-Af 76, BUN/Creatinine Ratio 17.3, Glucose 101, Calcium 8.7 Microbiology: Microbiology 10/15/22 23:40 Blood Culture (Wb) - Arm Left Blood Culture - Preliminary No growth in 48 hours. 10/15/22 23:58 Blood Culture (Wb) - Arm Left Blood Culture - Preliminary No growth in 48 hours. 10/16/22 03:25 Wound - Ankle Gram Stain - Final 10/16/22 03:25 Wound - Ankle Wound Culture - Final Staphylococcus aureus Streptococcus pyogenes D/C Instructions Discharge Diet: Low fat / Low cholesterol Call your doctor if you observe: Fever of 101 or Higher, Shortness of breath, Dizziness, Fainting spells, Swelling in the ankles, Chest pain and Increased palpitations (irregular heartbeat) Meaningful Use Info Meaningful Use Diagnoses (Choose all that apply): None applicable Discharge Plan Admission Admit Date/Time: 10/16/22 01:31 Attending Provider: Rigo Trinidad Primary Care Provider: Butch Maddox NP Consulting Providers: Mag Cantu Discharge Orders/Prescriptions Prescriptions: New ascorbic acid (vitamin C) 500 mg Tablet 500 mg PO 1200,1700 30 Days Qty: 60 0RF Rx Instructions: take with iron cephalexin 500 mg Capsule 500 mg PO Q6 10 Days Qty: 40 0RF ferrous sulfate [FeroSul] 325 mg (65 mg iron) Tablet 325 mg PO 1200,1700 30 Days Qty: 60 0RF Continued albuterol sulfate 90 mcg/actuation HFA aerosol inhaler 2 puff inhalation Q6H PRN (Reason: shortness of breath or wheezing) Qty: 8.5 6RF Rx Instructions: administer with spacer potassium chloride 20 MEQ tablet 40 meq PO DAILY valsartan 320 mg tablet 320 mg PO DAILY omeprazole 40 mg capsule,delayed release(DR/EC) 40 mg PO DAILY pramipexole 1.5 mg tablet 3 mg PO QHS cyclobenzaprine 10 MG tablet 10 mg PO QHS PRN (Reason: muscle spasm) Qty: 0 0RF Label Comments: muscle relaxer famotidine 20 mg Tablet 20 mg PO BID amitriptyline 100 mg tablet 100 mg PO QHS cholecalciferol (vitamin D3) 1,250 mcg (50,000 unit) capsule 1,250 mcg PO MO Label Comments: TAKE 1 CAPSULE BY MOUTH EVERY WEEK metoprolol succinate 50 mg tablet extended release 24 hr 50 mg PO DAILY Label Comments: TAKE 1 TABLET BY MOUTH EVERY DAY montelukast 10 mg Tablet 10 mg PO DAILY escitalopram oxalate 20 mg tablet 20 mg PO DAILY Label Comments: TAKE 1 TABLET BY MOUTH ONCE DAILY FOR 30 DAYS. STOP CELEXA. duloxetine 30 mg capsule,delayed release(DR/EC) 30 mg PO DAILY Label Comments: TAKE 1 CAPSULE BY MOUTH 1 (ONE) budesonide-formoterol [Symbicort] 160-4.5 mcg/actuation HFA aerosol inhaler 2 puff inhalation BID Rx Instructions: administer with spacer, rinse mouth after each use apixaban 5 mg tablet 5 mg PO BID Referrals / Follow Up: Rusty Ramsey MD [Non-Staff] - 10/23/22 Butch Maddox NP, [employer] [Primary Care Provider] - 10/27/22 11:00 am Disposition Disposition (needs filled in before D/C Order can be placed): Home, Self Care Charges/Coding Visit Charges Inpatient E&M: 18525 Disch Hosp >30min
== END 2022-10-20 13:42 | disposition home or self-care (01) | DRG 603 ==
LOC: ED 10-16 01:35 → PCU 10-16 01:47
PROVIDERS: Admitting Provider Student in an Organized Health Care Education/Training Program; Emergency Provider Emergency Medicine; PCP Nurse Practitioner Family; Visit Provider Family Medicine
DX: L03.116 Cellulitis of left lower limb (principal); Z68.43 Body mass index [BMI] 50.0-59.9, adult; E66.01 Morbid (severe) obesity due to excess calories; Z89.511 Acquired absence of right leg below knee; M06.9 Rheumatoid arthritis, unspecified; I10 Essential (primary) hypertension; K21.9 Gastro-esophageal reflux disease without esophagitis; D50.9 Iron deficiency anemia, unspecified; F41.9 Anxiety disorder, unspecified; G47.33 Obstructive sleep apnea (adult) (pediatric); G89.29 Other chronic pain; F32.A Depression, unspecified; Z79.01 Long term (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 anticoagulants; Z79.899 Other long term (current) drug therapy; Z86.711 Personal history of pulmonary embolism; Z87.891 Personal history of nicotine dependence; Z96.652 Presence of left artificial knee joint
CPT/HCPCS: 36415; 73590; 73610; 73701; 80048; 83540; 83550; 83605; 84484; 85025; 85610; 85652; 85730; 86140; 87040; 87070; 87077; 87186; 87205; 93005; 94640; 97110; 97162; 97166; 97530; 97535; 97802; 99285; G0008; J2020; J7030; J7040; J7050; J7120; 90686; A4216; J1940; J2405; J2916

== ENCOUNTER 2022-11-06 18:29 | Emergency (ER) | payer MEDICARE, MEDICAID, SELFPAY ==
[2022-11-06] VITALS (8 sets, daily range): BP systolic 116–133; BP diastolic 57–81; PULSE 91–107; RESP 14–23; TEMP 36.1–37.6; O2SAT 91–94; BMI 57.9
--- NOTE | 2022-11-06 18:47 | EDS_ITS ---
HPI History of Present Illness Chief Complaint: Abn Labs Narrative Narrative: 62-year-old female past medical history of remote right leg below the knee amputation, presents from [facility] with reported hemoglobin of 7.0. She states that she is not diabetic, but developed a wound on her left foot remotely that never healed well. She developed necrotizing fasciitis. 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 She was seen at [facility] and had the surgery performed on Sunday of last week, on 31 October, she stayed there for few days, then was discharged to the jail facility, [facility], for rehabilitation. She states this is her third day at that facility. She was visiting with friends when she was told that she needed to go to the emergency department because her hemoglobin was 7 on her laboratory work. She states she might of felt slightly dizzy today but that resolved and thought nothing of it. She is somewhat tired, but she states has been through quite a lot with her recent surgery. She denies any chest pain or shortness of breath. She has never received a blood transfusion in the past. No current bleeding from her surgical wound. 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 Depression Failure of outpatient treatment Family history of diabetes mellitus (DM) Fibromyalgia Former smoker GERD (gastroesophageal reflux disease) Hypertension Morbid obesity Necrotizing fasciitis Obstructive sleep apnea Pulmonary embolism Reflex sympathetic dystrophy Restless leg syndrome Rheumatoid arthritis Sleep apnea Home Medications potassium chloride 20 mEq tablet,extended release(part/cryst) 40 meq PO DAILY supplement 11/01/18 [History Last Taken 08/31/22] albuterol sulfate 90 mcg/actuation aerosol inhaler 2 puff inhalation Q6H PRN shortness of breath or wheezing #8.5 grams 05/11/21 [Rx Last Taken 08/24/22] valsartan 320 mg tablet 320 mg PO DAILY heart 05/19/21 [History Last Taken 08/31/22] omeprazole 40 mg capsule,delayed release 40 mg PO DAILY gerd 06/15/21 [History Last Taken 08/31/22] pramipexole 1.5 mg tablet 3 mg PO QHS rls 06/15/21 [History Last Taken 08/30/22] cyclobenzaprine 10 mg tablet 10 mg PO QHS PRN muscle spasm #0 tabs 03/09/22 [Rx Last Taken 08/31/22] amitriptyline 100 mg tablet 100 mg PO QHS PAIN AND SLEEP 08/31/22 [History Last Taken 08/30/22] cholecalciferol (vitamin D3) 1,250 mcg (50,000 unit) capsule 1,250 mcg PO MO SUPPLEMENT 08/31/22 [History Last Taken 08/28/22] famotidine 20 mg tablet 20 mg PO BID GERD 08/31/22 [History Last Taken 08/31/22] apixaban 5 mg tablet 5 mg PO BID blood thinner 10/16/22 [History Last Taken Unknown] budesonide-formoterol HFA 160 mcg-4.5 mcg/actuation aerosol inhaler (Symbicort) 2 puff inhalation BID asthma 10/16/22 [History Last Taken Unknown] duloxetine 30 mg capsule,delayed release 30 mg PO DAILY depression 10/16/22 [History Last Taken Unknown] escitalopram oxalate 20 mg tablet 20 mg PO DAILY depression 10/16/22 [History Last Taken Unknown] metoprolol succinate 50 mg tablet,extended release 24 hr 50 mg PO DAILY blood pressure 10/16/22 [History Last Taken Unknown] montelukast 10 mg tablet 10 mg PO DAILY asthma 10/16/22 [History Last Taken Unknown] ascorbic acid (vitamin C) 500 mg tablet 500 mg PO 1200,1700 30 days #60 tabs 10/20/22 [Rx Last Taken Unknown] cephalexin 500 mg capsule 500 mg PO Q6 10 days #40 caps 10/20/22 [Rx Last Taken Unknown] ferrous sulfate 325 mg (65 mg iron) tablet (FeroSul) 325 mg PO 1200,1700 30 days #60 tabs 10/20/22 [Rx Last Taken Unknown] Allergy/AdvReac Type Severity Reaction Status Date / Time vancomycin Allergy Rash Verified 11/06/22 18:33 amlodipine AdvReac Swelling Verified 11/06/22 18:33 Family History Mother Hypertension Cancer Pancreatic Diabetes Father Cancer pancreatic Brother Diabetes Grandfather Diabetes Surgical History Chronic knee pain after total replacement of left knee joint H/O foot surgery History of hysterectomy History of tonsillectomy Hx of breast reduction, elective Social History household members: significant other Smoking Status: Former smoker alcohol intake: never substance use type: does not use ROS ROS ED ROS Narrative Constitutional: No fever, no chills. Mild fatigue. HEENT: No sore throat. No neck pain. No loss of vision. No rhinorrhea. Cardiovascular: No chest pain. No palpitations. No pedal edema. Respiratory: No cough, no shortness of breath. Abdominal: No abdominal pain. No nausea. No vomiting. Genitourinary: No dysuria. No hematuria. Musculoskeletal: No myalgias. No arthralgias. Neurologic: No headaches. Slight dizziness today-resolved. No lightheadedness. Skin: No rash. No change in color. Psychiatric: No depression. No anxiety. EXAM Physical Exam Narrative Exam Narrative: Afebrile. Vital signs noted. HEENT: Normocephalic. Atraumatic. PERRL, EOMI. Neck soft and supple. No point tenderness or step off. Cardiovascular: Regular rate and rhythm. No murmurs, rubs, or gallops appreciated. Respiratory: No tachypnea. Lungs clear to auscultation bilaterally. Gastrointestinal: Abdomen soft, nontender, with normoactive bowel sounds. No rebound or guarding. Neurological: Awake. Alert. Nonfocal, nonlateralizing. Skin: No rash. Normal color. No pallor. Musculoskeletal: No pedal edema. Full range of motion extremities. Bandage on left lower extremity clean, dry, intact without hemorrhage or dried blood. Right below the knee amputation, left [id number] amputation. Const Vital Signs: 11/06/22 18:31 11/06/22 19:03 11/06/22 19:04 Temperature 97.0 F L Temperature Source Oral Pulse Rate 91 Respiratory Rate 16 Respiratory Effort Normal Non-Labored Respiratory Pattern Normal Blood Pressure 132/70 H Blood Pressure Mean 90 Pulse Ox 94 Oxygen Delivery Method Room Air MDM MDM MDM Narrative Medical decision making narrative: Patient denies any bleeding from her surgical wound. Her bandage on her left lower extremity appears clean, dry, and intact without hemorrhage. I will repeat her hemoglobin but type and screen her. I reviewed her laboratory work and her hemoglobin is 6. 8 here with platelet count normal at 333. She was typed and crossmatched. I discussed with her the risks and benefits of transfusion and she acknowledged an understanding. She will sign the consent form. At this point in time, she will be transfused 2 units. After transfusion, I do feel that she could be [facility]. She will be signed out to the overnight physician to make final disposition on this patient which I anticipate is discharged back to the jail facility. At approximately 1930, patient requested her pain medication, stating that she gets oxycodone 5 mg every 4 hours orally. I entered this order. She was told that she may be here for at least 4 hours as each unit takes 2 hours to transfuse. Patient is in stable condition. Lab Data Attestation: I reviewed the patient's lab results. Labs: Laboratory Results - last 24 hr 11/06/22 18:49 WBC 6.7 RBC 2.83 L Hgb 6.8 L Hct 23.6 L MCV 83.4 MCH 24.0 L MCHC 28.8 L RDW Std Deviation 67.2 H RDW Coeff of Naga 22.8 H Plt Count 333 MPV 9.5 Differential Comment SCANNED Discharge Plan Triage Chief Complaint: Abn Labs ED Provider: Maximino Hubbard Dx/Rx/DC Orders Clinical Impression: Anemia requiring transfusions, History of left lower limb amputation Prescriptions: No Action albuterol sulfate 90 mcg/actuation HFA aerosol inhaler 2 puff inhalation Q6H PRN (Reason: shortness of breath or wheezing) Qty: 8.5 6RF Rx Instructions: administer with spacer potassium chloride 20 MEQ tablet 40 meq PO DAILY valsartan 320 mg tablet 320 mg PO DAILY omeprazole 40 mg capsule,delayed release(DR/EC) 40 mg PO DAILY pramipexole 1.5 mg tablet 3 mg PO QHS cyclobenzaprine 10 MG tablet 10 mg PO QHS PRN (Reason: muscle spasm) Qty: 0 0RF Label Comments: muscle relaxer famotidine 20 mg Tablet 20 mg PO BID amitriptyline 100 mg tablet 100 mg PO QHS cholecalciferol (vitamin D3) 1,250 mcg (50,000 unit) capsule 1,250 mcg PO MO Label Comments: TAKE 1 CAPSULE BY MOUTH EVERY WEEK metoprolol succinate 50 mg tablet extended release 24 hr 50 mg PO DAILY Label Comments: TAKE 1 TABLET BY MOUTH EVERY DAY montelukast 10 mg Tablet 10 mg PO DAILY escitalopram oxalate 20 mg tablet 20 mg PO DAILY Label Comments: TAKE 1 TABLET BY MOUTH ONCE DAILY FOR 30 DAYS. STOP CELEXA. duloxetine 30 mg capsule,delayed release(DR/EC) 30 mg PO DAILY Label Comments: TAKE 1 CAPSULE BY MOUTH 1 (ONE) budesonide-formoterol [Symbicort] 160-4.5 mcg/actuation HFA aerosol inhaler 2 puff inhalation BID Rx Instructions: administer with spacer, rinse mouth after each use apixaban 5 mg tablet 5 mg PO BID ascorbic acid (vitamin C) 500 mg Tablet 500 mg PO 1200,1700 30 Days Qty: 60 0RF Rx Instructions: take with iron cephalexin 500 mg Capsule 500 mg PO Q6 10 Days Qty: 40 0RF ferrous sulfate [FeroSul] 325 mg (65 mg iron) Tablet 325 mg PO 1200,1700 30 Days Qty: 60 0RF Primary Care Provider: Butch Maddox NP Referrals: Butch Maddox NP, [employer]UCER-C [Primary Care Provider] - Disposition Disposition: [facility] Discharge Location: [facility] [place]
[2022-11-06 19:01] LABS: Hematocrit 23.6 % (37-47); Hemoglobin 6.8 g/dL (12.0-15.0); Mean Corp Hgb Conc 28.8 g/dL (32-36); Mean Corpuscular Volume 83.4 fL (81-99); Mean Platelet Vol. 9.5 fl (6.2-12.0); POSITIVE MORPHOLOGY YES; Platelet Count 333 K/mm3 (150-450); RBC Distribution Width CV 22.8 % (11.6-14.6); RBC Distribution Width SD 67.2 fl (35.1-43.9); Red Blood Count 2.83 M/mm3 (4.2-5.4); White Blood Count 6.7 K/mm3 (4.4-11.0)
[2022-11-06 19:04] LABS: Scan Indicated on CBC? Y/N YES- FLAGS NOTED
[2022-11-06 19:27] LABS: Differential Comment SCANNED
[2022-11-06] MEDS: oxyCODONE 5 MG Tablet PO (19:51)
[2022-11-07] VITALS (10 sets, daily range): BP systolic 94–142; BP diastolic 56–77; PULSE 87–98; RESP 16–31; TEMP 36.1–36.6; O2SAT 91–94
[2022-11-07] MEDS: oxyCODONE 5 MG Tablet PO ×2 (02:08→06:27)
== END 2022-11-07 07:11 | disposition skilled nursing facility (03) ==
PROVIDERS: Emergency Provider Emergency Medicine; PCP Nurse Practitioner Family; Visit Provider Emergency Medicine
DX: D64.9 Anemia, unspecified (principal); M72.6 Necrotizing fasciitis; I10 Essential (primary) hypertension; Z89.521 Acquired absence of right knee; Z87.891 Personal history of nicotine dependence
CPT/HCPCS: 36430; 85027; 86850; 86900; 86901; 86920; 99285; J7040; P9016

== ENCOUNTER 2023-07-20 16:37 | Inpatient (IN) | payer MEDICARE, MEDICAID, SELFPAY ==
[2023-07-20] VITALS (7 sets, daily range): BP systolic 98–139; BP diastolic 62–76; PULSE 82–88; RESP 18–24; TEMP 36.8–36.9; O2SAT 92–97; BMI 25.8
--- NOTE | 2023-07-20 16:43 | EKG12_ITS ---
Test Reason : Blood Pressure : / mmHG Vent. Rate : 085 BPM Atrial Rate : 085 BPM P-R Int : 174 ms QRS Dur : 088 ms QT Int : 372 ms P-R-T Axes : 003 -25 036 degrees QTc Int : 442 ms Normal sinus rhythm Minimal voltage criteria for LVH, may be normal variant ( R in aVL ) Borderline ECG Confirmed by YANNICK BORDEN, ASHLEE ([id number]), food editor ATCO KING ([id number]) on 07/24/2023 12:32:10 PM Referred By: Confirmed By:SHY LANIER MD
[2023-07-20 16:59] LABS: Absolute Lymphocyte Count 1.92 X10^3/uL (0.83-4.51); Absolute Neutrophil Count 4.5 X10^3/uL (2.0-7.7); Basophil# 0.05 X10^3/uL; Basophil% 0.7 % (0-1); Eosinophil# 0.17 X10^3/uL; Eosinophils% 2.3 % (0-5); Hematocrit 36.8 % (37-47); Hemoglobin 11.3 g/dL (12.0-15.0); Lymphocyte # 1.92 X10^3/ul (0.83-4.51); Lymphocyte % 25.9 % (19-41); Mean Corp Hgb Conc 30.7 g/dL (32-36); Mean Corpuscular Hgb 25.7 pg (27.0-32.0); Mean Corpuscular Volume 83.8 fL (81-99); Mean Platelet Vol. 11.5 fl (6.2-12.0); Monocyte# 0.75 X10^3/uL; Monocyte% 10.1 % (0-10); NRBC Flagged by Analyzer 0 % (0-5); Neutrophil # 4.49 X10^3/uL (2.7-7.7); Neutrophil % 60.6 % (47-70); Platelet Count 294 K/mm3 (150-450); RBC Distribution Width CV 15.2 % (11.6-14.6); RBC Distribution Width SD 46.1 fl (35.1-43.9); Red Blood Count 4.39 M/mm3 (4.2-5.4); White Blood Count 7.4 K/mm3 (4.4-11.0)
--- NOTE | 2023-07-20 17:15 | RAD_ITS ---
INDICATION: chest pain EXAMINATION/TECHNIQUE: X-RAY - XR Chest 1 View COMPARISON: 09/10/2022. FINDINGS: The lungs are clear. Tortuous and calcified thoracic aorta. The heart is borderline enlarged. No pleural effusion or pneumothorax. Degenerative changes of the thoracic spine. RAD/Chest 1 View (Portable) IMPRESSION: No acute radiographic abnormalities. Electronically Signed: Yousuf Rico MD at 17:26 EDT ,
[2023-07-20 17:21] LABS: Anion Gap 6 (5-15); BUN 18 mg/dL (7-18); BUN/Creat Ratio 23.7 RATIO (10-20); Calcium,Total 8.9 mg/dL (8.5-10.1); Chloride 107 mmol/L (98-107); Creatinine, Serum 0.76 mg/dL (0.55-1.02); EST Glomerular Filtration Rate 82 mL/min (>60); Est Glom Filt Rate - Afr Amer 99 mL/min (>60); Estimated Creatinine Clearance 70.93 ml/min; Glucose 116 mg/dL (74-106); Sodium Level 141 mmol/L (136-145); Troponin-I HS (w/2H Reflex) 4 pg/mL (3.0-54.0)
--- NOTE | 2023-07-20 17:25 | ED.VIS.CHEST ---
HPI History of Present Illness Chief Complaint: Chest Pain Narrative Narrative: 62-year-old female presenting with chest pain. She states it feels tight across the center of her chest like asthma. It started about 2:00. The patient was sitting listening to music at her facility. Patient states she felt tightness across her chest and she thought maybe this was an asthma/COPD flare. Patient states she went back to her room and did some breathing treatments and states that she became sweaty and more short of breath. EMS was called. She was given nitro in route. She states that she feels like she needs some Solu-Medrol and breathing treatments. Patient denies any cardiac history. Her last heart evaluation was 2 years ago and was normal. She is on Eliquis for history of PE. She has not missed any doses. [facility] Medical History (Updated 07/20/23 @ 20:[address] 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 use of skilled nursing anticoagulation Depression Failure of outpatient treatment Family history of diabetes mellitus (DM) Fibromyalgia Former smoker GERD (gastroesophageal reflux disease) Hypertension Morbid obesity Necrotizing fasciitis Obstructive sleep apnea Pulmonary embolism Reflex sympathetic dystrophy Restless leg syndrome Rheumatoid arthritis Sleep apnea Home Medications potassium chloride 20 mEq tablet,extended release(part/cryst) 40 meq PO DAILY supplement 11/01/18 [History Last Taken 08/31/22] albuterol sulfate 90 mcg/actuation aerosol inhaler 2 puff inhalation Q6H PRN shortness of breath or wheezing #8.5 grams 05/11/21 [Rx Last Taken 08/24/22] valsartan 320 mg tablet 320 mg PO DAILY heart 05/19/21 [History Last Taken 08/31/22] omeprazole 40 mg capsule,delayed release 40 mg PO DAILY gerd 06/15/21 [History Last Taken 08/31/22] pramipexole 1.5 mg tablet 3 mg PO QHS rls 06/15/21 [History Last Taken 08/30/22] cyclobenzaprine 10 mg tablet 10 mg PO QHS PRN muscle spasm #0 tabs 03/09/22 [Rx Last Taken 08/31/22] amitriptyline 100 mg tablet 100 mg PO QHS PAIN AND SLEEP 08/31/22 [History Last Taken 08/30/22] cholecalciferol (vitamin D3) 1,250 mcg (50,000 unit) capsule 1,250 mcg PO MO SUPPLEMENT 08/31/22 [History Last Taken 08/28/22] famotidine 20 mg tablet 20 mg PO BID GERD 08/31/22 [History Last Taken 08/31/22] apixaban 5 mg tablet 5 mg PO BID blood thinner 10/16/22 [History Last Taken Unknown] budesonide-formoterol HFA 160 mcg-4.5 mcg/actuation aerosol inhaler (Symbicort) 2 puff inhalation BID asthma 10/16/22 [History Last Taken Unknown] duloxetine 30 mg capsule,delayed release 30 mg PO DAILY depression 10/16/22 [History Last Taken Unknown] escitalopram oxalate 20 mg tablet 20 mg PO DAILY depression 10/16/22 [History Last Taken Unknown] metoprolol succinate 50 mg tablet,extended release 24 hr 50 mg PO DAILY blood pressure 10/16/22 [History Last Taken Unknown] montelukast 10 mg tablet 10 mg PO DAILY asthma 10/16/22 [History Last Taken Unknown] ascorbic acid (vitamin C) 500 mg tablet 500 mg PO 1200,1700 30 days #60 tabs 10/20/22 [Rx Last Taken Unknown] cephalexin 500 mg capsule 500 mg PO Q6 10 days #40 caps 10/20/22 [Rx Last Taken Unknown] ferrous sulfate 325 mg (65 mg iron) tablet (FeroSul) 325 mg PO 1200,1700 30 days #60 tabs 10/20/22 [Rx Last Taken Unknown] Allergy/AdvReac Type Severity Reaction Status Date / Time vancomycin Allergy Rash Verified 11/06/22 18:33 amlodipine AdvReac Swelling Verified 11/06/22 18:33 Family History Mother Hypertension Cancer Pancreatic Diabetes Father Cancer pancreatic Brother Diabetes Grandfather Diabetes Surgical History Chronic knee pain after total replacement of left knee joint H/O foot surgery History of hysterectomy History of tonsillectomy Hx of breast reduction, elective Social History household members: significant other Smoking Status: Former smoker alcohol intake: never substance use type: does not use ROS ROS ED Constitutional Constitutional ED: Reports sweats; Denies chills or fever(s) Eyes Eyes: Denies blurry vision or change in vision ENT ENT ED: Denies ear pain or sore throat Cardiovascular Cardiovascular: Reports chest pain and palpitations; Denies racing heartbeat Respiratory/Chest Respiratory/Chest: Reports dyspnea; Denies cough or sputum Gastrointestinal Gastrointestinal: Reports nausea; Denies abdominal pain, constipation, diarrhea or vomiting Genitourinary Genitourinary ED: Denies dysuria, hematuria or urinary frequency Musculoskeletal Musculoskeletal: Denies arthralgias, myalgias or neck pain Integumentary Denies abscess, Abrasions or rash Neurologic Neurologic: Denies headache(s), paresthesias or weakness Psychiatric Psychiatric: Denies anxiety, depression, suicidal ideation or suicidal thoughts Endocrine Endocrinology: Denies polydipsia or polyuria EXAM Physical Exam Const Vital Signs: 07/20/23 16:38 07/20/23 16:41 07/20/23 16:49 Temperature 98.5 F Temperature Source Temporal Pulse Rate 88 Respiratory Rate 22 H Respiratory Effort Short of Breath Respiratory Pattern Blood Pressure 139/73 H Blood Pressure Mean 95 Pulse Ox 95 97 Oxygen Delivery Method Room Air Room Air 07/20/23 17:39 07/20/23 17:39 07/20/23 19:00 Temperature Temperature Source Pulse Rate 88 82 Respiratory Rate 24 H 18 Respiratory Effort Respiratory Pattern Normal Blood Pressure 112/75 Blood Pressure Mean 87 Pulse Ox 93 94 Oxygen Delivery Method Room Air Room Air 07/20/23 19:27 Temperature Temperature Source Pulse Rate 83 Respiratory Rate 18 Respiratory Effort Respiratory Pattern Blood Pressure 98/62 Blood Pressure Mean 74 Pulse Ox 94 Oxygen Delivery Method Positive well nourished General Appearance ED: NAD HEENT Reports moist mucous membranes normocephalic Eyes PERRL and EOMs intact bilaterally Chest Wall inspection of chest normal and palpation of chest normal Resp normal respiratory effort Auscultation: wheezes scattered wheezes Cardio regular rate and regular rhythm GI normal to inspection, nondistended, normoactive bowel sounds Neuro oriented x3 and CN's II-XII intact bilaterally Sensorium / Orientation: awake Psych mental status grossly normal Mood & Affect: anxious Heart Score History: Slightly/Non-Suspicious ECG: Normal Age: >45 - <65 years Risk Factors: >/= 3 Risk Factors or History of CAD Score: 3 MDM MDM MDM Narrative Medical decision making narrative: Patient presenting with chest pain. Differential includes ACS, CHF, COPD, asthma, dehydration, electrolyte normalities, costochondritis. Considered PE however she is on Eliquis and has not missed any doses. Patient with scattered wheezes on exam. She given Solu-Medrol and breathing treatments. CBC will be obtained to assess white blood cell count, hemoglobin, platelets. BMP to assess renal function and electrolytes. High-sensitivity troponin and EKG will be obtained to rule out ischemia/dysrhythmia. Chest x-ray to rule out pneumonia. EKG on my interpretation shows normal sinus rhythm with a ventricular rate of 85 bpm outside of ischemic change or ectopy. CBC and BMP unremarkable. High-sensitivity troponin is 4. We will obtain a delta troponin. Chest x-ray my interpretation shows no acute process. I would like to reevaluate the patient and she does not feel she can go home due to her shortness of breath. She wants to try to stay in the hospital and get treatments for COPD. Delta troponin came back at 5 therefore there is no significant normal change. Cannot ambulate the patient because she does not have legs show ambulatory pulse ox is unable to be done. Discussed with the hospitalist for admission. Impression: 1. COPD exacerbation 2. Chest pain Lab Data Labs: Laboratory Results - last 24 hr 07/20/23 07/20/23 16:42 18:55 WBC 7.4 RBC 4.39 Hgb 11.3 L Hct 36.8 L MCV 83.8 MCH 25.7 L MCHC 30.7 L RDW Std Deviation 46.1 H RDW Coeff of Naga 15.2 H Plt Count 294 MPV 11.5 Immature Gran % (Auto) 0.400 Neut % (Auto) 60.6 Lymph % (Auto) 25.9 Pender % (Auto) 10.1 H Eos % (Auto) 2.3 Baso % (Auto) 0.7 Absolute Neuts (auto) 4.5 Absolute Lymphs (auto) 1.92 Nucleated RBC % 0 Sodium 141 Potassium 4.0 Chloride 107 Carbon Dioxide 28.0 Anion Gap 6 BUN 18 Creatinine 0.76 Estim Creat Clear Calc 70.93 Est GFR (MDRD) Af Amer 99 Est GFR (MDRD) Non-Af 82 BUN/Creatinine Ratio 23.7 H Glucose 116 H Calcium 8.9 Troponin I High Sens 4 5 Radiography Diagnostic Testing: Clinical Impression(s) from Imaging Studies Chest X-Ray 07/20/23 17:15 IMPRESSION: No acute radiographic abnormalities. Electronically Signed: Yousuf Rico MD at 17:26 EDT , Discharge Plan Triage Chief Complaint: Chest Pain ED Provider: Edy Calvin Dx/Rx/DC Orders Prescriptions: No Action albuterol sulfate 90 mcg/actuation HFA aerosol inhaler 2 puff inhalation Q6H PRN (Reason: shortness of breath or wheezing) Qty: 8.5 6RF Rx Instructions: administer with spacer potassium chloride 20 MEQ tablet 40 meq PO DAILY valsartan 320 mg tablet 320 mg PO DAILY omeprazole 40 mg capsule,delayed release(DR/EC) 40 mg PO DAILY pramipexole 1.5 mg tablet 3 mg PO QHS cyclobenzaprine 10 MG tablet 10 mg PO QHS PRN (Reason: muscle spasm) Qty: 0 0RF Patient Comments: muscle relaxer famotidine 20 mg Tablet 20 mg PO BID amitriptyline 100 mg tablet 100 mg PO QHS cholecalciferol (vitamin D3) 1,250 mcg (50,000 unit) capsule 1,250 mcg PO MO Patient Comments: TAKE 1 CAPSULE BY MOUTH EVERY WEEK metoprolol succinate 50 mg tablet extended release 24 hr 50 mg PO DAILY Patient Comments: TAKE 1 TABLET BY MOUTH EVERY DAY montelukast 10 mg Tablet 10 mg PO DAILY escitalopram oxalate 20 mg tablet 20 mg PO DAILY Patient Comments: TAKE 1 TABLET BY MOUTH ONCE DAILY FOR 30 DAYS. STOP CELEXA. duloxetine 30 mg capsule,delayed release(DR/EC) 30 mg PO DAILY Patient Comments: TAKE 1 CAPSULE BY MOUTH 1 (ONE) budesonide-formoterol [Symbicort] 160-4.5 mcg/actuation HFA aerosol inhaler 2 puff inhalation BID Rx Instructions: administer with spacer, rinse mouth after each use apixaban 5 mg tablet 5 mg PO BID ascorbic acid (vitamin C) 500 mg Tablet 500 mg PO 1200,1700 30 Days Qty: 60 0RF Rx Instructions: take with iron cephalexin 500 mg Capsule 500 mg PO Q6 10 Days Qty: 40 0RF ferrous sulfate [FeroSul] 325 mg (65 mg iron) Tablet 325 mg PO 1200,1700 30 Days Qty: 60 0RF Primary Care Provider: Butch Maddox NP Referrals: Butch Maddox NP, [employer] [Primary Care Provider] -
[2023-07-20] MEDS: Albuterol 2.5 MG/3 ML VIAL.NEB. INHALATION (17:35)
[2023-07-20] MEDS: Ipratropium/Albuterol Sulfate 3 ML AMPUL.NEB INHALATION (17:35)
[2023-07-20 18:55] LABS: Reflex Troponin-HS? (from REC) Y
[2023-07-20 19:44] LABS: Troponin-I HS 5 pg/mL (3.0-54.0)
--- NOTE | 2023-07-20 20:12 | HP.PCM.HOS_ITS ---
[facility] - General General Date of Admission: 07/20/23 Date of Service: 07/20/23 Chief Complaint: Shortness of breath and chest tightness, came from my review of the study. [facility] Narrative SAULO PUENTES, is a 62 F who lives in [place] in [place] came to ED for chest tightness shortness of breath that started about 1400 hrs. today. 3 nitro was given at group home and 325 mg aspirin before arrival. Patient started having shortness of breath and chest tightness today, sudden onset as mentioned above. She denies fever chills, sore throat headache, nausea or vomiting or other prodromal symptoms. Patient states she has history of asthma/COPD for long time. She has not smoked for long time for about 40 to 45 years, probably tried smoking in the young days. She is also bilateral amputee but does not have a history of diabetes mellitus. Labs reviewed in [facility] normal limit. CBC shows mild anemia of chronic disease. Twelve-lead EKG normal sinus rhythm 85 bpm, QTc 442 ms. Portable single AP view chest x-ray individually reviewed and lungs look clear with no acute radiographic abnormality. [facility] Medical History (Updated 07/20/23 @ 20:[address] 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 use of manager intermediate anticoagulation Depression Failure of outpatient treatment Family history of diabetes mellitus (DM) Fibromyalgia Former smoker GERD (gastroesophageal reflux disease) Hypertension Morbid obesity Necrotizing fasciitis Obstructive sleep apnea Pulmonary embolism Reflex sympathetic dystrophy Restless leg syndrome Rheumatoid arthritis Sleep apnea Home Medications potassium chloride 20 mEq tablet,extended release(part/cryst) 40 meq PO DAILY supplement 11/01/18 [History Last Taken 08/31/22] albuterol sulfate 90 mcg/actuation aerosol inhaler 2 puff inhalation Q6H PRN shortness of breath or wheezing #8.5 grams 05/11/21 [Rx Last Taken 08/24/22] valsartan 320 mg tablet 320 mg PO DAILY heart 05/19/21 [History Last Taken 08/31/22] omeprazole 40 mg capsule,delayed release 40 mg PO DAILY gerd 06/15/21 [History Last Taken 08/31/22] pramipexole 1.5 mg tablet 3 mg PO QHS rls 06/15/21 [History Last Taken 08/30/22] cyclobenzaprine 10 mg tablet 10 mg PO QHS PRN muscle spasm #0 tabs 03/09/22 [Rx Last Taken 08/31/22] amitriptyline 100 mg tablet 100 mg PO QHS PAIN AND SLEEP 08/31/22 [History Last Taken 08/30/22] cholecalciferol (vitamin D3) 1,250 mcg (50,000 unit) capsule 1,250 mcg PO MO SUPPLEMENT 08/31/22 [History Last Taken 08/28/22] famotidine 20 mg tablet 20 mg PO BID GERD 08/31/22 [History Last Taken 08/31/22] apixaban 5 mg tablet 5 mg PO BID blood thinner 10/16/22 [History Last Taken Unknown] budesonide-formoterol HFA 160 mcg-4.5 mcg/actuation aerosol inhaler (Symbicort) 2 puff inhalation BID asthma 10/16/22 [History Last Taken Unknown] duloxetine 30 mg capsule,delayed release 30 mg PO DAILY depression 10/16/22 [History Last Taken Unknown] escitalopram oxalate 20 mg tablet 20 mg PO DAILY depression 10/16/22 [History Last Taken Unknown] metoprolol succinate 50 mg tablet,extended release 24 hr 50 mg PO DAILY blood pressure 10/16/22 [History Last Taken Unknown] montelukast 10 mg tablet 10 mg PO DAILY asthma 10/16/22 [History Last Taken Unknown] ascorbic acid (vitamin C) 500 mg tablet 500 mg PO 1200,1700 30 days #60 tabs 10/20/22 [Rx Last Taken Unknown] cephalexin 500 mg capsule 500 mg PO Q6 10 days #40 caps 10/20/22 [Rx Last Taken Unknown] ferrous sulfate 325 mg (65 mg iron) tablet (FeroSul) 325 mg PO 1200,1700 30 days #60 tabs 10/20/22 [Rx Last Taken Unknown] Allergy/AdvReac Type Severity Reaction Status Date / Time vancomycin Allergy Rash Verified 11/06/22 18:33 amlodipine AdvReac Swelling Verified 11/06/22 18:33 Family History Mother Hypertension Cancer Pancreatic Diabetes Father Cancer pancreatic Brother Diabetes Grandfather Diabetes Surgical History Chronic knee pain after total replacement of left knee joint H/O foot surgery History of hysterectomy History of tonsillectomy Hx of breast reduction, elective Social History household members: significant other Smoking Status: Former smoker alcohol intake: never substance use type: does not use ROS ROS Narrative Constitutional: Reports fatigue and weakness. No fever. HEENT: Reports systems reviewed and no addt'l complaints, except as documented Respiratory/Chest: Mild bilateral audible wheezing. Rest as described in HPI. CVS: Denies history of coronary artery disease or cardiac stent or angina. Gastrointestinal: Denies coffee ground emesis, hematemesis or vomiting Genitourinary: Denies burning urination or new urinary tract symptoms Musculoskeletal: Bilateral amputee. Left above-knee due to necrotizing fasciitis. Right below-knee due to infection/osteomyelitis which required multiple surgery and higher level of amputation. No acute injury. Neurologic: Denies seizure-like symptoms. skin: dressing present on the left AKA stump. Endocrinology: Reports systems reviewed and no addt'l complaints, except as documented Hematologic/Lymphatic: Reports systems reviewed and no addt'l complaints, except as documented Rest 14 ROS are negative except as mentioned in HPI Vital Signs Vital Signs Vital Signs: 07/20/23 16:38 07/20/23 16:41 07/20/23 16:49 Temperature 98.5 F Temperature Source Temporal Pulse Rate 88 Respiratory Rate 22 H Respiratory Effort Short of Breath Respiratory Pattern Blood Pressure 139/73 H Blood Pressure Mean 95 Pulse Ox 95 97 Oxygen Delivery Method Room Air Room Air 07/20/23 17:39 07/20/23 17:39 07/20/23 19:00 Temperature Temperature Source Pulse Rate 88 82 Respiratory Rate 24 H 18 Respiratory Effort Respiratory Pattern Normal Blood Pressure 112/75 Blood Pressure Mean 87 Pulse Ox 93 94 Oxygen Delivery Method Room Air Room Air 07/20/23 19:27 Temperature Temperature Source Pulse Rate 83 Respiratory Rate 18 Respiratory Effort Respiratory Pattern Blood Pressure 98/62 Blood Pressure Mean 74 Pulse Ox 94 Oxygen Delivery Method Weight Weight: 160 lb 3.2 oz Body Mass Index (BMI) 25.8 Physical Exam Narrative General: Alert, Oriented x3, Cooperative. BMI 25.9 kg/m?. HEENT: Atraumatic, PERRLA, EOMI, Normocephalic Oral: Oral mucosa dry. No Gingival or Mucosal Lesions/ Ulcerations Neck: Supple, No JVD, Negative Carotid Bruits Lungs: Air entry diminished in bilateral lung bases. Bilateral wheezing. Mild NAIR. Cardiovascular: Regular rate, Regular Rhythm, Normal S1, Normal S2, No murmurs Abdomen: Bowel Sounds Present, Soft, Non Tender, Non-Distended : No renal angle tenderness. No suprapubic tenderness. Extremities: No edema, Capillary Refill Less than 3 Seconds Skin: Dressing on left AKA stump. Musculoskeletal: Bilateral amputee, right BKA and left AKA. Reflex sympathetic dystrophy. No acute tenderness or injury. Neurological: Cranial nerves II-XII grossly intact, DTR 2+/4. No acute focal neurological deficit. Psych/Mental Status: Normal Affect, Appropriate. Results Lab / Micro Data 07/20/23 16:42 07/20/23 16:42 Labs: Laboratory Results - last 24 hr 07/20/23 16:42: WBC 7.4, RBC 4.39, Hgb 11.3 L, Hct 36.8 L, MCV 83.8, MCH 25.7 L, MCHC 30.7 L, RDW Std Deviation 46.1 H, RDW Coeff of Naga 15.2 H, Plt Count 294, MPV 11.5, Immature Gran % (Auto) 0.400, Neut % (Auto) 60.6, Lymph % (Auto) 25.9, Hancock % (Auto) 10.1 H, Eos % (Auto) 2.3, Baso % (Auto) 0.7, Absolute Neuts (auto) 4.5, Absolute Lymphs (auto) 1.92, Nucleated RBC % 0, Sodium 141, Potassium 4.0, Chloride 107, Carbon Dioxide 28.0, Anion Gap 6, BUN 18, Creatinine 0.76, Estim Creat Clear Calc 70.93, Est GFR (MDRD) Af Amer 99, Est GFR (MDRD) Non-Af 82, BUN/Creatinine Ratio 23.7 H, Glucose 116 H, Calcium 8.9, Troponin I High Sens 4 07/20/23 18:55: Troponin I High Sens 5 Radiology Impression Chest X-Ray 07/20/23 17:15 IMPRESSION: No acute radiographic abnormalities. Electronically Signed: Yousuf Rico MD at 17:26 EDT , Assessment & Plan Assessment/Plan (1) Asthma exacerbation: QUALIFIERS: Asthma severity: unspecified severity Asthma persistence: unspecified Qualified Code(s): J45.901 - Unspecified asthma with (acute) exacerbation PLAN: Plan 1. Asthma/mild COPD exacerbation: Patient is being admitted on [facility]Sur floor as an observation. Patient is being managed on scheduled bronchodilator, IV Solu-Medrol, Mucinex DM , Zithromax, incentive spirometry and Pep. She uses BiPAP 12/8 at night with 2 L of oxygen. Currently she is not hypoxic or tachypneic at rest but gets mild tachypneic on exertion. 2 troponins are negative therefore ACS ruled out. EKG does not show acute ischemic changes. COVID and flu antigens and respiratory panel ordered. Sputum culture if patient produces sputum. Patient states she has 2 shots of COVID-19 vaccine in the past. 3. History of bilateral pulmonary embolism and hypertension: Continue Eliquis. Blood pressure in normal range. 3. Bilateral amputee, right BKA and left AKA: She was last admitted in October 2022 for sepsis secondary to left lower extremity cellulitis after she had necrotizing fasciitis in the past. She still has dressing on left AKA stump rapidly underlying ulcer. Wound dressing. During last time she was discharged on antibiotic and appointment with orthopedic surgeon. Glucose 116. A1c ordered for tomorrow AM.She denies history of diabetes mellitus but family history of DM.. 4. Anxiety/depression: Home medications continued. No acute issues. 5. GERD: On PPI 6. Chronic iron deficiency anemia: 8 H&H 11.3/36%. Continue iron supplement. ? Iron studies did demonstrate iron deficiency anemia, she did get a dose of Venofer yesterday, will transition her to oral replacement ? She is on a PPI so we will also start her on vitamin C whenever she takes her iron. VTE prophylaxis: On Eliquis. Laboratory Results 07/20/23 16:42: WBC 7.4, RBC 4.39, Hgb 11.3 L, Hct 36.8 L, MCV 83.8, MCH 25.7 L, MCHC 30.7 L, RDW Std Deviation 46.1 H, RDW Coeff of Naga 15.2 H, Plt Count 294, MPV 11.5, Immature Gran % (Auto) 0.400, Neut % (Auto) 60.6, Lymph % (Auto) 25.9, Hancock % (Auto) 10.1 H, Eos % (Auto) 2.3, Baso % (Auto) 0.7, Absolute Neuts (auto) 4.5, Absolute Lymphs (auto) 1.92, Nucleated RBC % 0, Sodium 141, Potassium 4.0, Chloride 107, Carbon Dioxide 28.0, Anion Gap 6, BUN 18, Creatinine 0.76, Estim Creat Clear Calc 70.93, Est GFR (MDRD) Af Amer 99, Est GFR (MDRD) Non-Af 82, BUN/Creatinine Ratio 23.7 H, Glucose 116 H, Calcium 8.9, Troponin I High Sens 4 07/20/23 18:55: Troponin I High Sens 5 Charges/Coding Visit Charges Inpatient E&M: 35279 Init Hosp L3 Procedures Hospitalists Procedures: [id number] Advncd Care Plan 30 Min
--- NOTE | 2023-07-20 21:34 | ED.RN ---
[address] to fax med list
[2023-07-21] VITALS (16 sets, daily range): BP systolic 121–154; BP diastolic 67–92; PULSE 71–86; RESP 16–26; TEMP 36.6–36.8; O2SAT 92–97; BMI 54.5
[2023-07-21] MEDS: Methylprednisolone Sod Succ 40 MG/ML VIAL IV ×4 (01:02→21:02)
[2023-07-21] MEDS: guaiFENesin/D-Methorphan TAB.SR.12H 2 TABLET PO ×3 (01:02→21:07)
[2023-07-21] MEDS: Azithromycin 250 MG Tablet 500 MG PO ×2 (01:03→09:02)
[2023-07-21] MEDS: Lactated Ringers 1,000 ML 75 ML IV (01:03)
[2023-07-21] MEDS: Ipratropium/Albuterol Sulfate 3 ML AMPUL.NEB INHALATION ×3 (02:30→11:57)
[2023-07-21] MEDS: Budesonide Respules 0.5 MG/2 ML AMPUL.NEB. INHALATION ×2 (07:08→19:46)
[2023-07-21] MEDS: Menthol/Lanolin/Calamine/Znox 113 GM Tube 1 APPLIC TOPICAL ×2 (08:55→21:01)
[2023-07-21] MEDS: Multivitamins,Therapeutic Tablet 1 TABLET PO (08:55)
[2023-07-21] MEDS: Miconazole Nitrate 43 GM Bottle 1 APPLIC TOPICAL ×2 (08:56→21:01)
[2023-07-21] MEDS: Losartan Potassium 100 MG Tablet PO (08:56)
[2023-07-21] MEDS: Loratadine 10 MG Tablet PO (08:56)
[2023-07-21] MEDS: Ergocalciferol 1.25 MG (50, 000 UNIT) Capsule PO (08:57)
[2023-07-21] MEDS: Potassium Chloride Oral Tablet 20 MEQ 40 MEQ PO (08:57)
[2023-07-21] MEDS: Metoprolol(XL)Succ 50 MG Tablet PO (08:58)
[2023-07-21] MEDS: Montelukast 10 MG Tablet PO (08:59)
[2023-07-21] MEDS: Senna/Docusate Sodium 1 Tablet 2 TABLET PO ×2 (09:00→21:07)
[2023-07-21] MEDS: APIXABAN 5 MG TABLET PO ×2 (09:00→21:06)
[2023-07-21] MEDS: Pantoprazole Sodium 40 MG Tablet PO (09:01)
[2023-07-21 09:40] LABS: Hemoglobin A1c 5.7 % (3.8-5.6)
[2023-07-21] MEDS: Gabapentin 300 MG Capsule PO ×2 (09:48→21:11)
--- NOTE | 2023-07-21 14:29 | PCM.PN.HOSP ---
Reason for Visit Reason for Visit: Diagnoses Unspecified asthma with (acute) exacerbation (07/20/23) Subjective Subjective Patient was seen and examined, she was admitted last night with complaints of chest pain and shortness of breath, she was felt to have an exacerbation of COPD. Today patient is on room air, she has not required oxygen since she has been admitted yesterday. I checked with her extended care facility at which she resides, she is currently they are under skilled care and since she has a full admission here at the hospital, she will need pre-CERT to return to the extended care facility. Objective Data Objective Data Vital Signs: Vital Signs Temp Pulse Resp BP Pulse Ox O2 Del Method 98.0 F 80 18 154/87 H 93 Room Air 07/21/23 10:05 07/21/23 11:58 07/21/23 11:58 07/21/23 10:05 07/21/23 10:05 07/21/23 10:05 Oxygen Delivery Method Room Air Weight: 153.2 kg Body Mass Index (BMI) 54.5 Intake & Output: Intake and Output for Last 24 Hours 07/19/23 07/20/23 07/21/23 23:59 23:59 23:59 Intake Total 1195 / 1195 Output Total 1650 / 1650 Balance -455 / -455 Lab / Micro Data 07/20/23 16:42 07/20/23 16:42 Labs: Laboratory Results - last 24 hr 07/20/23 16:42: WBC 7.4, RBC 4.39, Hgb 11.3 L, Hct 36.8 L, MCV 83.8, MCH 25.7 L, MCHC 30.7 L, RDW Std Deviation 46.1 H, RDW Coeff of Naga 15.2 H, Plt Count 294, MPV 11.5, Immature Gran % (Auto) 0.400, Neut % (Auto) 60.6, Lymph % (Auto) 25.9, [place] % (Auto) 10.1 H, Eos % (Auto) 2.3, Baso % (Auto) 0.7, Absolute Neuts (auto) 4.5, Absolute Lymphs (auto) 1.92, Nucleated RBC % 0, Sodium 141, Potassium 4.0, Chloride 107, Carbon Dioxide 28.0, Anion Gap 6, BUN 18, Creatinine 0.76, Estim Creat Clear Calc 70.93, Est GFR (MDRD) Af Amer 99, Est GFR (MDRD) Non-Af 82, BUN/Creatinine Ratio 23.7 H, Glucose 116 H, Calcium 8.9, Troponin I High Sens 4 07/20/23 18:55: Troponin I High Sens 5 07/21/23 06:52: Hemoglobin A1c 5.7 H Micro: Microbiology 07/20/23 21:45 Mucosa - Nasopharyngeal Respiratory Panel (PCR) - Final 07/20/23 20:56 Nasal Secretion SARS-CoV-2 & FLU Antigen (Rapid) - Final Radiography Diagnostic Testing: Radiology Impression Chest X-Ray 07/20/23 17:15 IMPRESSION: No acute radiographic abnormalities. Electronically Signed: Yousuf Rico MD at 17:26 EDT , Physical Exam Const alert, oriented x3 and no apparent distress Constitutional Narrative: Patient has morbid obesity General Appearance: cooperative, well kempt and well developed Orientation / Consciousness: awake, oriented to person, oriented to place and oriented to time HEENT normocephalic, head/scalp atraumatic and moist oral mucous membranes Eyes PERRL, EOMs intact bilaterally and conjunctivae normal Neck supple, no JVD, thyroid normal and no carotid bruits General: trachea midline Resp normal respiratory effort, no retractions, no use of accessory muscles and clear to auscultation bilaterally Auscultation: Negative for rales, rhonchi or wheezes Cardio regular rate, regular rhythm, no murmurs, no rub and no gallops GI normal to inspection, nondistended, normoactive bowel sounds, soft to palpation, non-tender and non-distended Extremity Extremity Narrative: Patient has bilateral lower extremity amputations-right below the knee amputation, left [id number] amputation Skin no rashes or lesions noted General Skin Exam: no breakdown Neuro oriented x3, CN's II-XII intact bilaterally, no focal motor deficits and no sensory deficits noted Sensorium / Orientation: awake, alert, oriented to person, oriented to place and oriented to time Speech: speech normal Psych affect normal Assessment & Plan Assessment/Plan (1) Asthma exacerbation: QUALIFIERS: Asthma severity: unspecified severity Asthma persistence: unspecified Qualified Code(s): J45.901 - Unspecified asthma with (acute) exacerbation PLAN: Plan 1. Exacerbation of asthma-patient remains on IV Solu-Medrol and aerosol treatments at this time, she does require any supplemental oxygen at this time. #2 obstructive sleep apnea-I have asked respiratory therapy to confirm whether the patient uses BiPAP or CPAP currently, if she does use CPAP at night this will need to be set up here. #3 morbid obesity-complicates care, medical course, recovery, and prognosis #4 essential hypertension-patient is on valsartan and metoprolol currently #5 chronic depression-patient is on Lexapro and amitriptyline #6 chest pain secondary to exacerbation of asthma-patient's troponins were unremarkable Total clinical time spent by myself addressing the patient's medical issues, reviewing all of her data, and collaborating with patient's care team: 35 minutes Charges/Coding Visit Charges Inpatient E&M: 72601 Subs Hosp L2
--- NOTE | 2023-07-21 19:36 | CASEMGMT ---
Social Work Hospitalist wanting to discharge patient [facility] as pt has been here less than a day and needs nothing further medically. SW called [facility] and sent message via [employer] without response. Hospitalist called [facility] and spoke with a supervisor powdered metal who reported patient will need a new precert to return. Pt reportedly should be switching to [facility] coverage soon. SW received call from [facility] who reports new precert needed but they will start it today to be expedited, additional documents sent via [employer]. Plan: Pt to return to [facility], pending precert. Annalisa Christopher NUT DEHYDRATOR OPERATOR, MAKEUP SALES ADVISOR
[2023-07-21] MEDS: Albuterol 2.5 MG/3 ML VIAL.NEB. INHALATION (19:45)
[2023-07-21] MEDS: 0.9% Saline Lock 10 ML Syringe IV (21:04)
[2023-07-21] MEDS: cycloBENZAPRine HCl 10 MG Tablet PO (21:06)
[2023-07-21] MEDS: Atorvastatin Calcium 10 MG Tablet PO (21:06)
[2023-07-21] MEDS: Amitriptyline 100 MG Tablet PO (21:06)
[2023-07-21] MEDS: Pramipexole Di-HCl 1 MG Tablet 3 MG PO (21:08)
[2023-07-21] MEDS: MELATONIN 10 MG TABLET 5 MG PO (21:09)
[2023-07-22] VITALS (8 sets, daily range): BP systolic 101–152; BP diastolic 66–69; PULSE 77–91; RESP 16–20; TEMP 36.5–36.8; O2SAT 93–95
[2023-07-22] MEDS: Methylprednisolone Sod Succ 40 MG/ML VIAL IV (06:36)
[2023-07-22] MEDS: 0.9% Saline Lock 10 ML Syringe IV ×4 (06:36→22:10)
[2023-07-22] MEDS: Budesonide Respules 0.5 MG/2 ML AMPUL.NEB. INHALATION ×2 (07:42→19:37)
[2023-07-22] MEDS: Albuterol 2.5 MG/3 ML VIAL.NEB. INHALATION ×3 (07:42→19:36)
--- NOTE | 2023-07-22 08:24 | PCM.PN.HOSP ---
Reason for Visit Reason for Visit: Diagnoses Unspecified asthma with (acute) exacerbation (07/20/23) Subjective Subjective Patient was seen and examined today, she remains on room air at this time. Patient has no respiratory distress, she complains of slight cough. Objective Data Objective Data Vital Signs: Vital Signs Temp Pulse Resp BP Pulse Ox O2 Del Method 97.7 F L 89 18 106/66 93 Room Air 07/22/23 03:40 07/22/23 03:40 07/22/23 03:40 07/22/23 03:40 07/22/23 03:40 07/22/23 03:40 Oxygen Delivery Method Room Air Weight: 153.2 kg Body Mass Index (BMI) 54.5 Intake & Output: Intake and Output for Last 24 Hours 07/20/23 07/21/23 07/22/23 23:59 23:59 23:59 Intake Total 1595 / 1595 200 / 200 Output Total 1999 / 1999 350 / 350 Balance -405 / -405 -150 / -150 Lab / Micro Data 07/20/23 16:42 07/20/23 16:42 Labs: Laboratory Results - last 24 hr 07/21/23 06:52: Hemoglobin A1c 5.7 H Micro: Microbiology 07/20/23 21:45 Mucosa - Nasopharyngeal Respiratory Panel (PCR) - Final 07/20/23 20:56 Nasal Secretion SARS-CoV-2 & FLU Antigen (Rapid) - Final Physical Exam Narrative alert, oriented x3 and no apparent distress Constitutional Narrative: Patient has morbid obesity General Appearance: cooperative, well kempt and well developed Orientation / Consciousness: awake, oriented to person, oriented to place and oriented to time HEENT normocephalic, head/scalp atraumatic and moist oral mucous membranes Eyes PERRL, EOMs intact bilaterally and conjunctivae normal Neck supple, no JVD, thyroid normal and no carotid bruits General: trachea midline Resp normal respiratory effort, no retractions, no use of accessory muscles and clear to auscultation bilaterally Auscultation: Negative for rales, rhonchi or wheezes Cardio regular rate, regular rhythm, no murmurs, no rub and no gallops GI normal to inspection, nondistended, normoactive bowel sounds, soft to palpation, non-tender and non-distended Extremity Extremity Narrative: Patient has bilateral lower extremity amputations-right below the knee amputation, left [id number] amputation Skin no rashes or lesions noted General Skin Exam: no breakdown Neuro oriented x3, CN's II-XII intact bilaterally, no focal motor deficits and no sensory deficits noted Sensorium / Orientation: awake, alert, oriented to person, oriented to place and oriented to time Speech: speech normal Psych affect normal Assessment & Plan Assessment/Plan (1) Asthma exacerbation: QUALIFIERS: Asthma severity: unspecified severity Asthma persistence: unspecified Qualified Code(s): J45.901 - Unspecified asthma with (acute) exacerbation PLAN: Plan 1. Exacerbation of asthma-patient remains on IV Solu-Medrol and aerosol treatments at this time-I have decided to decrease the Solu-Medrol to 20 mg every 8 hours, she does require any supplemental oxygen at this time. #2 obstructive sleep apnea-I have asked respiratory therapy to confirm whether the patient uses BiPAP or CPAP currently, if she does use CPAP at night this will need to be set up here-I had this discussion with respiratory yesterday #3 morbid obesity-complicates care, medical course, recovery, and prognosis #4 essential hypertension-patient is on valsartan and metoprolol currently #5 chronic depression-patient is on Lexapro and amitriptyline #6 chest pain secondary to exacerbation of asthma-patient's troponins were unremarkable Total clinical time spent by myself addressing the patient's medical issues, reviewing all of her data, and collaborating with patient's care team: 25 minutes Charges/Coding Visit Charges Inpatient E&M: 63274 [facility] Hosp L1
[2023-07-22] MEDS: Menthol/Lanolin/Calamine/Znox 113 GM Tube 1 APPLIC TOPICAL ×2 (08:44→22:01)
[2023-07-22] MEDS: Multivitamins,Therapeutic Tablet 1 TABLET PO (08:45)
[2023-07-22] MEDS: Miconazole Nitrate 43 GM Bottle 1 APPLIC TOPICAL ×2 (08:45→22:01)
[2023-07-22] MEDS: Montelukast 10 MG Tablet PO (09:02)
[2023-07-22] MEDS: Senna/Docusate Sodium 1 Tablet 2 TABLET PO ×2 (09:02→22:13)
[2023-07-22] MEDS: Gabapentin 300 MG Capsule PO ×2 (09:03→22:34)
[2023-07-22] MEDS: Potassium Chloride Oral Tablet 20 MEQ 40 MEQ PO (09:03)
[2023-07-22] MEDS: Pantoprazole Sodium 40 MG Tablet PO (09:03)
[2023-07-22] MEDS: guaiFENesin/D-Methorphan TAB.SR.12H 2 TABLET PO ×2 (09:03→22:10)
[2023-07-22] MEDS: APIXABAN 5 MG TABLET PO ×2 (09:03→22:09)
[2023-07-22] MEDS: Losartan Potassium 100 MG Tablet PO (09:04)
[2023-07-22] MEDS: Loratadine 10 MG Tablet PO (09:04)
[2023-07-22] MEDS: Metoprolol(XL)Succ 50 MG Tablet PO (09:04)
[2023-07-22] MEDS: Azithromycin 250 MG Tablet 500 MG PO (09:05)
[2023-07-22] MEDS: Acetaminophen 325 MG Tablet 650 MG PO (09:06)
[2023-07-22] MEDS: Methylprednisolone Sod Succ 40 MG/ML VIAL 20 MG IV ×2 (13:12→22:11)
[2023-07-22] MEDS: Pramipexole Di-HCl 0.25 MG Tablet 0.75 MG PO (18:16)
--- NOTE | 2023-07-22 20:47 | PCM.HOSP.N ---
Hospitalist Note Following Cozaar administration patient did have onset of rash therefore this was discontinued and Benadryl IV x1 administered. Listed as allergy now.
[2023-07-22] MEDS: DiphenhydrAMINE 50 MG/ML Syringe 25 MG IV (22:06)
[2023-07-22] MEDS: Atorvastatin Calcium 10 MG Tablet PO (22:09)
[2023-07-22] MEDS: cycloBENZAPRine HCl 10 MG Tablet PO (22:09)
[2023-07-22] MEDS: MELATONIN 10 MG TABLET 5 MG PO (22:09)
[2023-07-22] MEDS: Amitriptyline 100 MG Tablet PO (22:10)
[2023-07-22] MEDS: Pramipexole Di-HCl 1 MG Tablet 3 MG PO (22:10)
[2023-07-23 04:59] VITALS: BP 125/79; PULSE 66; RESP 18; TEMP 36.6; O2SAT 96
[2023-07-23] MEDS: Methylprednisolone Sod Succ 40 MG/ML VIAL 20 MG IV ×2 (05:06→13:41)
[2023-07-23] MEDS: 0.9% Saline Lock 10 ML Syringe IV ×2 (05:07→13:41)
[2023-07-23] MEDS: Budesonide Respules 0.5 MG/2 ML AMPUL.NEB. INHALATION (07:12)
[2023-07-23] MEDS: Albuterol 2.5 MG/3 ML VIAL.NEB. INHALATION ×2 (07:12→13:01)
[2023-07-23 07:13] VITALS: PULSE 89; RESP 18; O2SAT 95
--- NOTE | 2023-07-23 08:20 | WOUNDNOTE ---
wound photo: Left lower leg- distal stump
[2023-07-23 08:29] VITALS: BP 133/85; PULSE 73; RESP 18; TEMP 36.3; O2SAT 97
[2023-07-23] MEDS: guaiFENesin/D-Methorphan TAB.SR.12H 2 TABLET PO (08:34)
[2023-07-23] MEDS: Menthol/Lanolin/Calamine/Znox 113 GM Tube 1 APPLIC TOPICAL (08:36)
[2023-07-23] MEDS: Potassium Chloride Oral Tablet 20 MEQ 40 MEQ PO (08:36)
[2023-07-23] MEDS: Azithromycin 250 MG Tablet 500 MG PO (08:37)
[2023-07-23] MEDS: Senna/Docusate Sodium 1 Tablet 2 TABLET PO (08:37)
[2023-07-23] MEDS: Pantoprazole Sodium 40 MG Tablet PO (08:38)
[2023-07-23] MEDS: Multivitamins,Therapeutic Tablet 1 TABLET PO (08:38)
[2023-07-23] MEDS: Loratadine 10 MG Tablet PO (08:38)
[2023-07-23 08:39] VITALS: PULSE 73
[2023-07-23] MEDS: Metoprolol(XL)Succ 50 MG Tablet PO (08:39)
[2023-07-23] MEDS: Montelukast 10 MG Tablet PO (08:39)
[2023-07-23] MEDS: APIXABAN 5 MG TABLET PO (08:40)
[2023-07-23] MEDS: Miconazole Nitrate 43 GM Bottle 1 APPLIC TOPICAL (08:40)
--- NOTE | 2023-07-23 10:02 | CASEMGMT ---
Social Work SW spoke w/pt regarding insurance, pt aware that [employer] will no longer cover and pt will return to [facility] under Medicaid. Pt informed SW she plans to stay at [facility], states she is comfortable there and has friends there. SW explained to pt that SW needs to complete document to go forward with Medicaid, to get a level of care. Pt states understanding. SW reviewed ADLs w/pt and what level of assist pt needs--pt needs hands on assist w/most ADLs due to bilateral lower extremity amputations. SW explained that we anticipate her being able to return today or tomorrow, will just depend on the paperwork process w/Medicaid. Pt states understanding. Once physician completes the orders, all information will be sent to [facility] for Medicaid level of care. LAURE Todd
--- NOTE | 2023-07-23 11:34 | PCM.TXEXTCAR ---
Diet Diet Order/Speech Therapy: 07/21/23 10:51 Diet: Consistent Carb - Calorie Controlled Food consistency:: Regular Liquid Consistency:: Regular/Thin Dietary Modifications:: Cardiac / Heart Healthy How many daily calories?: 1600 calorie Routine Orders/Code Status Suppository Type: Dulcolax 10mg Suppository Frequency: Daily PRN Code Status: Full Code Wound(s) L. extremity: Wound Type: Open Surgical Wound Parker. lower extremities: Wound Type: Surgical Incision left lower leg - distal stump: Wound Type: Surgical Incision Dressing Change: Wet to Dry Dressing Therapies Physical Therapy: Eval and Treat Occupational Therapy: Eval and Treat Problem/Diagnosis (1) Asthma exacerbation: Status: Acute Code(s): J45.901 - Unspecified asthma with (acute) exacerbation Plan #Exacerbation of asthma #FAY #Morbid obesity #HTN #Depression 62-year-old female history of sleep apnea, anxiety, bilateral lower extremity amputation, asthma, PE presented to [facility] from SNF for shortness of breath and chest tightness. Was given aspirin and nitro prior to coming to ED however on presentation it appears patient was in a mild asthma exacerbation. She is on IV steroids and DuoNebs and Zithromax and improved significantly overnight not requiring oxygen. Patient was ready for DC the following day however given she came from SNF pre-CERT had to be reobtained. Patient discharged back in stable condition on 5 further days of prednisone. Allergies/Procedures Done in Hospital Allergies losartan [From Cozaar] Allergy (Mild, Verified 07/22/23 20:15) Rash pt states she had a reaction previously to this med and she forgot to have it added to her her allergy list. vancomycin Allergy (Verified 11/06/22 18:33) Rash amlodipine Adverse Reaction (Verified 11/06/22 18:33) Swelling Type of Care/Length of Stay Estimated LOS: More Than 30 Days Type of Care Needed: Intermediate Rehab Potential: Fair Prognosis: Fair Additional Orders/Day of Discharge Day of Discharge: 07/23/23 Dietary and Speech Recommendations Dietitian Recommendations/Changes: Will change diet to 1600 calorie/consistent carbohydrate; cardiac diet. Bandar as needed. Discharge Plan Admission Admit Date/Time: 07/20/23 20:34 Primary Reason for Your Visit: Shortness of breath Attending Provider: Kelsey Lima Primary Care Provider: Butch Maddox BORING MACHINE OPERATOR Consulting Providers: Laron Campoverde; Gurdeep Brito Instructions Patient Instructions: Asthma Discharge Orders/Prescriptions Prescriptions: New prednisone 20 mg tablet 40 mg PO DAILY 5 Days Qty: 10 0RF Continued albuterol sulfate 90 mcg/actuation HFA aerosol inhaler 2 puff inhalation Q6H PRN (Reason: shortness of breath or wheezing) Qty: 8.5 6RF Rx Instructions: administer with spacer potassium chloride 20 MEQ tablet 40 meq PO DAILY valsartan 320 mg tablet 320 mg PO DAILY omeprazole 40 mg capsule,delayed release(DR/EC) 40 mg PO DAILY pramipexole 1.5 mg tablet 3 mg PO QHS amitriptyline 100 mg tablet 100 mg PO QHS cholecalciferol (vitamin D3) 1,250 mcg (50,000 unit) capsule 1,250 mcg PO MO Patient Comments: TAKE 1 CAPSULE BY MOUTH EVERY WEEK metoprolol succinate 50 mg tablet extended release 24 hr 50 mg PO DAILY Patient Comments: TAKE 1 TABLET BY MOUTH EVERY DAY montelukast 10 mg Tablet 10 mg PO DAILY escitalopram oxalate 20 mg tablet 20 mg PO DAILY Patient Comments: TAKE 1 TABLET BY MOUTH ONCE DAILY FOR 30 DAYS. STOP CELEXA. budesonide-formoterol [Symbicort] 160-4.5 mcg/actuation HFA aerosol inhaler 2 puff inhalation BID Rx Instructions: administer with spacer, rinse mouth after each use apixaban 5 mg tablet 5 mg PO BID cyclobenzaprine 10 MG tablet 10 mg PO QHS Patient Comments: muscle relaxer alprazolam 0.5 mg tablet 0.5 mg PO DAILY PRN (Reason: anxiety) albuterol sulfate 2.5 mg /3 mL (0.083 %) solution for nebulization 1.25 mg inhalation Q4H PRN (Reason: sob/wheezing) atorvastatin 10 mg tablet 10 mg PO QHS docusate sodium [Colace] 100 mg capsule 100 mg PO DAILY fluticasone propionate [Flonase Allergy Relief] 50 mcg/actuation spray,suspension 1 spray intranasal DAILY Rx Instructions: administer into each nostril fluticasone propion-salmeterol [Advair Diskus] 250-50 mcg/dose blister with device 1 inh inhalation BID gabapentin 300 mg capsule 300 mg PO BID loratadine [Allergy Relief (loratadine)] 10 mg tablet 10 mg PO DAILY melatonin 5 mg tablet 5 mg PO QHS multivitamin [Daily Multi-Vitamin] Tablet 1 tab PO DAILY Referrals / Follow Up: Butch Maddox BORING MACHINE OPERATOR, BORING MACHINE OPERATOR-C [Primary Care Provider] - Within 1 Week Disposition Disposition (needs filled in before D/C Order can be placed): Long-Term Facility (1) Asthma exacerbation Qualifiers: Asthma severity: unspecified severity Asthma persistence: unspecified Qualified Code(s): J45.901 - Unspecified asthma with (acute) exacerbation
--- NOTE | 2023-07-23 11:36 | PCM.DC.SUM ---
Providers Date of Admission: 07/20/23 Date of Discharge: 07/23/23 Primary Care Physician: Butch Maddox, WAITSTAFF CAPTAIN-C Consultations 07/20/23 23:48 Consult: Onc/Wound/visual display manager Routine Comment: Reason for Consult:: Left AKA stump ulcer. Reason For Visit: Asthma EXA Diagnosis Discharge Diagnosis (1) Asthma exacerbation: Status: Acute Code(s): J45.901 - Unspecified asthma with (acute) exacerbation Qualifiers: Asthma severity: unspecified severity Asthma persistence: unspecified Qualified Code(s): J45.901 - Unspecified asthma with (acute) exacerbation Plan #Exacerbation of asthma #FAY #Morbid obesity #HTN #Depression Medications at Discharge Home Medications potassium chloride 20 mEq tablet,extended release(part/cryst) 40 meq PO DAILY supplement 11/01/18 albuterol sulfate 90 mcg/actuation aerosol inhaler 2 puff inhalation Q6H PRN shortness of breath or wheezing #8.5 grams 05/11/21 valsartan 320 mg tablet 320 mg PO DAILY heart 05/19/21 omeprazole 40 mg capsule,delayed release 40 mg PO DAILY gerd 06/15/21 pramipexole 1.5 mg tablet 3 mg PO QHS rls 06/15/21 amitriptyline 100 mg tablet 100 mg PO QHS PAIN AND SLEEP 08/31/22 cholecalciferol (vitamin D3) 1,250 mcg (50,000 unit) capsule 1,250 mcg PO MO SUPPLEMENT 08/31/22 apixaban 5 mg tablet 5 mg PO BID blood thinner 10/16/22 budesonide-formoterol HFA 160 mcg-4.5 mcg/actuation aerosol inhaler (Symbicort) 2 puff inhalation BID asthma 10/16/22 escitalopram oxalate 20 mg tablet 20 mg PO DAILY depression 10/16/22 metoprolol succinate 50 mg tablet,extended release 24 hr 50 mg PO DAILY blood pressure 10/16/22 montelukast 10 mg tablet 10 mg PO DAILY asthma 10/16/22 alprazolam 0.5 mg tablet 0.5 mg PO DAILY PRN anxiety 07/20/23 cyclobenzaprine 10 mg tablet 10 mg PO QHS muscle spasm 07/20/23 albuterol sulfate 2.5 mg/3 mL (0.083 %) solution for nebulization 1.25 mg inhalation Q4H PRN sob/wheezing 07/21/23 atorvastatin 10 mg tablet 10 mg PO QHS cholesterol 07/21/23 docusate sodium 100 mg capsule (Colace) 100 mg PO DAILY constipation 07/21/23 fluticasone 250 mcg-salmeterol 50 mcg/dose blistr powdr for inhalation (Advair Diskus) 1 inh inhalation BID copd 07/21/23 fluticasone propionate 50 mcg/actuation nasal spray,suspension (Flonase Allergy Relief) 1 spray intranasal DAILY allergies 07/21/23 gabapentin 300 mg capsule 300 mg PO BID phantom pain 07/21/23 loratadine 10 mg tablet (Allergy Relief (loratadine)) 10 mg PO DAILY allergies 07/21/23 melatonin 5 mg tablet 5 mg PO QHS sleep 07/21/23 multivitamin (Daily Multi-Vitamin tablet) 1 tab PO DAILY supplement 07/21/23 prednisone 20 mg tablet 40 mg (2 x 20 mg) PO DAILY 5 days #10 tabs 07/23/23 Hospital Course Summary of Care Provided Minutes Spent on Discharge: 31 Hospital Course: 62-year-old female history of sleep apnea, anxiety, bilateral lower extremity amputation, asthma, PE presented to [facility] 07/20/2023 from SNF for shortness of breath and chest tightness. Was given aspirin and nitro prior to coming to ED however on presentation it appears patient was in a mild asthma exacerbation. She is on IV steroids and DuoNebs and Zithromax and improved significantly overnight not requiring oxygen. Patient was ready for DC the following day however given she came from SNF pre-CERT had to be reobtained. Patient discharged back in stable condition on 5 further days of prednisone. Physical Exam Narrative General: Alert, oriented, no apparent distress HEENT: Atraumatic, normocephalic Eyes: Anicteric, normal conjunctiva, extraocular movements grossly intact Neck: Supple Respiratory: Clear to auscultation bilaterally, normal respiratory effort Cardiovascular: Regular rate and rhythm GI: Soft, nontender, nondistended Extremities: No edema Musculoskeletal: Moving all extremities Neuro: No overt focal neurological deficits Skin: No rashes appreciated Psych: Cooperative Weight / BMI Weight Weight: 153.2 kg Body Mass Index (BMI) 54.5 ABG / Lab / Microbiology Data 07/20/23 16:42 07/20/23 16:42 Microbiology: Microbiology 07/21/23 08:45 Sputum, Expectorated/Coughed Gram Stain - Final 07/21/23 08:45 Sputum, Expectorated/Coughed Respiratory Culture - Final 07/20/23 21:45 Mucosa - Nasopharyngeal Respiratory Panel (PCR) - Final 07/20/23 20:56 Nasal Secretion SARS-CoV-2 & FLU Antigen (Rapid) - Final D/C Instructions Discharge Diet: Carb Control Diet Meaningful Use Info Meaningful Use Diagnoses (Choose all that apply): None applicable Discharge Plan Admission Admit Date/Time: 07/20/23 20:34 Primary Reason for Your Visit: Shortness of breath Attending Provider: Kelsey Lima Primary Care Provider: Butch Maddox WAITSTAFF CAPTAIN Consulting Providers: Laron Campoverde; Gurdeep Brito Instructions Patient Instructions: Asthma Discharge Orders/Prescriptions Prescriptions: New prednisone 20 mg tablet 40 mg PO DAILY 5 Days Qty: 10 0RF Continued albuterol sulfate 90 mcg/actuation HFA aerosol inhaler 2 puff inhalation Q6H PRN (Reason: shortness of breath or wheezing) Qty: 8.5 6RF Rx Instructions: administer with spacer potassium chloride 20 MEQ tablet 40 meq PO DAILY valsartan 320 mg tablet 320 mg PO DAILY omeprazole 40 mg capsule,delayed release(DR/EC) 40 mg PO DAILY pramipexole 1.5 mg tablet 3 mg PO QHS amitriptyline 100 mg tablet 100 mg PO QHS cholecalciferol (vitamin D3) 1,250 mcg (50,000 unit) capsule 1,250 mcg PO MO Patient Comments: TAKE 1 CAPSULE BY MOUTH EVERY WEEK metoprolol succinate 50 mg tablet extended release 24 hr 50 mg PO DAILY Patient Comments: TAKE 1 TABLET BY MOUTH EVERY DAY montelukast 10 mg Tablet 10 mg PO DAILY escitalopram oxalate 20 mg tablet 20 mg PO DAILY Patient Comments: TAKE 1 TABLET BY MOUTH ONCE DAILY FOR 30 DAYS. STOP CELEXA. budesonide-formoterol [Symbicort] 160-4.5 mcg/actuation HFA aerosol inhaler 2 puff inhalation BID Rx Instructions: administer with spacer, rinse mouth after each use apixaban 5 mg tablet 5 mg PO BID cyclobenzaprine 10 MG tablet 10 mg PO QHS Patient Comments: muscle relaxer alprazolam 0.5 mg tablet 0.5 mg PO DAILY PRN (Reason: anxiety) albuterol sulfate 2.5 mg /3 mL (0.083 %) solution for nebulization 1.25 mg inhalation Q4H PRN (Reason: sob/wheezing) atorvastatin 10 mg tablet 10 mg PO QHS docusate sodium [Colace] 100 mg capsule 100 mg PO DAILY fluticasone propionate [Flonase Allergy Relief] 50 mcg/actuation spray,suspension 1 spray intranasal DAILY Rx Instructions: administer into each nostril fluticasone propion-salmeterol [Advair Diskus] 250-50 mcg/dose blister with device 1 inh inhalation BID gabapentin 300 mg capsule 300 mg PO BID loratadine [Allergy Relief (loratadine)] 10 mg tablet 10 mg PO DAILY melatonin 5 mg tablet 5 mg PO QHS multivitamin [Daily Multi-Vitamin] Tablet 1 tab PO DAILY Referrals / Follow Up: Butch Maddox WAITSTAFF CAPTAIN, WAITSTAFF CAPTAIN-C [Primary Care Provider] - Within 1 Week Disposition Disposition (needs filled in before D/C Order can be placed): Alf Facility Charges/Coding Visit Charges Inpatient E&M: 64974 Disch Hosp >30min
[2023-07-23] MEDS: Gabapentin 300 MG Capsule PO (11:53)
[2023-07-23 13:01] VITALS: PULSE 75; RESP 18; O2SAT 97
--- NOTE | 2023-07-23 13:16 | CASEMGMT ---
Social Work Level of Care submitted and returned for admission to [facility] under Medicaid. DC clothing sales assistant updated and to send results to Eric. CHRISTINE Des[facility]
--- NOTE | 2023-07-23 13:18 | CASEMGMT ---
Discharge Planning Discharge orders, signed med list, and transport time sent to [facility] patient by [facility] at 2:30p. Nursing, SW, and patient updated. Patient will contact her daughter. Brandy Givens, Discharge Planning Asst.
[2023-07-23] MEDS: DiphenhydrAMINE 25 MG Capsule PO (13:39)
[2023-07-23 14:23] VITALS: BP 134/78; PULSE 73; RESP 18; TEMP 36.8; O2SAT 97
--- NOTE | 2023-07-23 15:05 | CHAPLAIN ---
Type of Pastoral Visit _x__ Initial Visit ___ Follow-up Visit ___ On-call Visit ___ General Patient Visit ___ Spiritual Assessment ___ Family Conference ___ Bereavement ___ Rapid Response ___ Code Blue ___ Other (describe below) Pastoral Care Referral From _x__ Patient ___ Family ___ Nurse ___ Physician ___ Zinc Plater ___ Roller Shop Utility Worker ___ Other (describe below) Sacrament/Intervention _x__ Active listening ___ Anointing ___ Jain ___ Bereavement ___ Communion ___ Christine exploration ___ _x__ Life review _x__ Prayer ___ Reconciliation ___ Sacrament of Sick _x__ Supportive presence ___ Wedding ___ Other (describe below) Pastoral Comments patient remembers the project hire from previous admissions and expressed desire to be seen again this time; pt gives update on health and her move to [facility]; pt speaks of recent loss of close friends in ; pt is talkative and expressive with a good amount of optimism; pt states that I like to see things half full and I have some good friends I've made at [facility];
== END 2023-07-23 14:52 | disposition skilled nursing facility (03) | DRG 202 ==
LOC: ED 20:36 → MS3 21:14
PROVIDERS: Admitting Provider Internal Medicine; Emergency Provider Student in an Organized Health Care Education/Training Program; PCP Nurse Practitioner Family; Visit Provider Internal Medicine
DX: J45.901 Unspecified asthma with (acute) exacerbation (principal); Z68.43 Body mass index [BMI] 50.0-59.9, adult; Z89.611 Acquired absence of right leg above knee; Z89.612 Acquired absence of left leg above knee; E66.01 Morbid (severe) obesity due to excess calories; Z89.511 Acquired absence of right leg below knee; D50.9 Iron deficiency anemia, unspecified; I10 Essential (primary) hypertension; F32.A Depression, unspecified; M79.7 Fibromyalgia; K21.9 Gastro-esophageal reflux disease without esophagitis; G47.33 Obstructive sleep apnea (adult) (pediatric); F41.9 Anxiety disorder, unspecified; L27.0 Generalized skin eruption due to drugs and medicaments taken internally; T46.5X5A Adverse effect of other antihypertensive drugs, initial encounter; Y92.239 Unspecified place in hospital as the place of occurrence of the external cause; Z11.52 Encounter for screening for COVID-19; Z79.01 Long term (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 anticoagulants; Z79.899 Other long term (current) drug therapy; Z86.711 Personal history of pulmonary embolism; Z87.891 Personal history of nicotine dependence
CPT/HCPCS: 36415; 71045; 80048; 83036; 84484; 85025; 87070; 87205; 87428; 87633; 93005; 94002; 94640; 94668; 94762; 99252; 99285; J7120; A4216; G0463

== ENCOUNTER 2024-05-02 16:59 | Emergency (ER) | payer MEDICARE, MEDICAID, SELFPAY ==
[2024-05-02 17:01] VITALS: BP 155/83; PULSE 80; RESP 16; TEMP 36.8; O2SAT 96; BMI 60.2
--- NOTE | 2024-05-02 17:13 | EDS_ITS ---
HPI History of Present Illness Chief Complaint: Upper Extremity Injury [facility] Medical History (Updated 05/02/24 @ 19:[address] 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 Chronic wound of extremity Anemia Necrotizing fasciitis Below knee amputation Depression Rheumatoid arthritis GERD (gastroesophageal reflux disease) Former smoker BiPAP (biphasic positive airway pressure) dependence Sleep apnea Hypertension Failure of outpatient treatment Anxiety and depression Bronchospasm Asthma exacerbation Family history of diabetes mellitus (DM) Restless leg syndrome Obstructive sleep apnea Morbid obesity Fibromyalgia Reflex sympathetic dystrophy Benign essential HTN Asthma Anxiety Home Medications ?Medication ?Instructions ?Recorded ?Last Taken ?Type potassium chloride 20 mEq 40 meq PO DAILY supplement 11/01/18 08/31/22 History tablet,extended release(part/cryst) albuterol sulfate 90 mcg/actuation 2 puff inhalation Q6H PRN 05/11/21 08/24/22 Rx aerosol inhaler shortness of breath or wheezing #8.5 grams valsartan 320 mg tablet 320 mg PO DAILY heart 05/19/21 08/31/22 History omeprazole 40 mg capsule,delayed 40 mg PO DAILY gerd 06/15/21 08/31/22 History release pramipexole 1.5 mg tablet 3 mg PO QHS rls 06/15/21 08/30/22 History amitriptyline 100 mg tablet 100 mg PO QHS PAIN AND SLEEP 08/31/22 08/30/22 Hist ory cholecalciferol (vitamin D3) 1,250 1,250 mcg PO MO SUPPLEMENT 08/31/22 08/28/22 History mcg (50,000 unit) capsule apixaban 5 mg tablet 5 mg PO BID blood thinner 10/16/22 Unknown History budesonide-formoterol HFA 160 2 puff inhalation BID asthma 10/16/22 Unknown History mcg-4.5 mcg/actuation aerosol inhaler (Symbicort) escitalopram oxalate 20 mg tablet 20 mg PO DAILY depression 10/16/22 Unknown History metoprolol succinate 50 mg 50 mg PO DAILY blood pressure 10/16/22 Unknown History tablet,extended release 24 hr montelukast 10 mg tablet 10 mg PO DAILY asthma 10/16/22 Unknown History alprazolam 0.5 mg tablet 0.5 mg PO DAILY PRN anxiety 07/20/23 Unknown History cyclobenzaprine 10 mg tablet 10 mg PO QHS muscle spasm 10/20/23 Unknown History albuterol sulfate 2.5 mg/3 mL 1.25 mg inhalation Q4H PRN 07/21/23 Unknown History (0.083 %) solution for nebulization sob/wheezing atorvastatin 10 mg tablet 10 mg PO QHS cholesterol 07/21/23 Unknown History docusate sodium 100 mg capsule 100 mg PO DAILY constipation 07/21/23 Unknown History (Colace) fluticasone 250 mcg-salmeterol 50 1 inh inhalation BID copd 07/21/23 Unknown History mcg/dose blistr powdr for inhalation (Advair Diskus) fluticasone propionate 50 1 spray intranasal DAILY allergies 07/21/23 Unknown History mcg/actuation nasal spray,suspension (Flonase Allergy Relief) gabapentin 300 mg capsule 300 mg PO BID phantom pain 07/21/23 Unknown History loratadine 10 mg tablet (Allergy 10 mg PO DAILY allergies 07/21/23 Unknown History Relief (loratadine)) melatonin 5 mg tablet 5 mg PO QHS sleep 07/21/23 Unknown History multivitamin (Daily Multi-Vitamin 1 tab PO DAILY supplement 07/21/23 Unknown History tablet) prednisone 20 mg tablet 40 mg (2 x 20 mg) PO DAILY 5 days 07/23/23 Unknown Rx #10 tabs Allergy/AdvReac Type Severity Reaction Status Date / Time losartan (From [employer]) Allergy Mild Rash Verified 07/22/23 20:15 vancomycin Allergy Rash Verified 11/06/22 18:33 amlodipine AdvReac Swelling Verified 11/06/22 18:33 Family History Mother Hypertension Cancer Pancreatic Diabetes Father Cancer pancreatic Brother Diabetes Grandfather Diabetes Surgical History Hx of breast reduction, elective Chronic knee pain after total replacement of left knee joint H/O foot surgery History of hysterectomy History of tonsillectomy Social History household members: significant other Smoking Status: Former smoker alcohol intake: never substance use type: does not use EXAM Physical Exam Const Vital Signs: 05/02/24 17:01 Temperature 98.2 F Temperature Source Oral Pulse Rate 80 Respiratory Rate 16 Blood Pressure 155/83 H Blood Pressure Mean 107 Pulse Ox 96 Oxygen Delivery Method Room Air [facility] [place] Narrative Medical decision making narrative: HISTORY OF PRESENT ILLNESS: 63-year-old female presents with left arm pain. Notes left shoulder pain with movement that started on Sunday. She notes Sunday morning she jolted her self away causing pain in her left shoulder. Since then she has had increasing pain with range of motion. Denies any numbness tingling or loss of sensation. Denies any neck pain chest pain or shortness of breath. Denies any sore throat. Denies any falls or other trauma. REVIEW OF SYSTEMS: Pertinent positives: Shoulder pain Pertinent negatives: Chest pain, shortness of breath, numbness tingling or loss of sensation PHYSICAL EXAM: Nursing triage notes reviewed, Vital signs reviewed Constitutional: please see mdm Neck: No midline step-offs deformities noted to the cervical spine, no TTP over lateral cervical musculature. Lungs: Clear to auscultation, No wheezing or rales. No increased work of breathing, no conversational dyspnea, no accessory muscle use, no nasal flaring. No respiratory distress noted Heart: Regular rate and rhythm, No murmurs, No rubs and No gallops, 2+ distal pulses (radial, femoral, posterior tibial) in all extremities Extremities: No edema, no obvious deformity, intact but painful range of motion noted to left upper extremity Neuro: Intact 5/5 strength with ok sign (median), intact finger abduction (ulnar) intact wrist extension (radial n). Intact sensation in the radial, ulnar, and median nerve distributions. Intact axillary nerve function Skin: No rash or lesions noted MEDICAL DECISION MAKING: Chief Complaint: Left shoulder pain External records reviewed: Imaging reviewed, no recent advanced imaging of the involved extremity Factors affecting care: Hypertension, PE, cellulitis, on Eliquis Social determinants of health: none History obtained from others: none Consults: Orthopedic surgery: Dr. Vo. [facility] Narrative: The patient was hemodynamically stable, afebrile and nontoxic-appearing. Exam with TTP over left shoulder, painful range of motion indicative of rotator cuff injury I considered the following differential diagnosis: Left shoulder fracture, dislocation, left rotator cuff strain Patient was treated with IV morphine and IV Toradol for symptomatic relief. ALL IMAGES (IF OBTAINED) HAVE BEEN PERSONALLY REVIEWED AND INTERPRETED BY MYSELF. X-ray left shoulder was read and reviewed person by myself. My impression is patient no obvious fracture dislocation. Per radiology there is signs of severe osteoarthritis and possible avascular necrosis. Given concerning findings I consulted orthopedics spoke to Dr. Vo who recommended sling and close outpatient follow-up. Sling provided. The patient and/or family, caregivers express understanding. The patient and/or family, caregivers agrees with the plan. Shared decision making: I will have a discussion with the patient and or visitors regarding risk/benefits of further testing or admission. They will be made aware of of the risk/benefits inherent in this decision they will be given the opportunity to voice understanding. Total critical care time today provided was at least 0 minutes. This excludes separately billable procedures. Critical care time (if documented) is secondary to the patient having high probability of clinically significant/life threatening deterioration in the patient's condition which required my urgent intervention. Impression: 1. Left shoulder pain 2. Rotator cuff strain Dispo: Discharge home This note was generated with [employer] dictation software. It may contain incorrect words, spelling, and punctuation that were not noted in review of the chart prior to signing. Discharge Plan Triage Chief Complaint: Upper Extremity Injury ED Provider: Peter Tellez Dx/Rx/DC Orders Clinical Impression: Osteoarthritis, Avascular necrosis Instructions: ED Sling, Osteoarthritis (OA) Prescriptions: No Action albuterol sulfate 90 mcg/actuation HFA aerosol inhaler 2 puff inhalation Q6H PRN (Reason: shortness of breath or wheezing) Qty: 8.5 6RF Rx Instructions: administer with spacer potassium chloride 20 MEQ tablet 40 meq PO DAILY valsartan 320 mg tablet 320 mg PO DAILY omeprazole 40 mg capsule,delayed release(DR/EC) 40 mg PO DAILY pramipexole 1.5 mg tablet 3 mg PO QHS amitriptyline 100 mg tablet 100 mg PO QHS cholecalciferol (vitamin D3) 1,250 mcg (50,000 unit) capsule 1,250 mcg PO MO Patient Comments: TAKE 1 CAPSULE BY MOUTH EVERY WEEK metoprolol succinate 50 mg tablet extended release 24 hr 50 mg PO DAILY Patient Comments: TAKE 1 TABLET BY MOUTH EVERY DAY montelukast 10 mg Tablet 10 mg PO DAILY escitalopram oxalate 20 mg tablet 20 mg PO DAILY Patient Comments: TAKE 1 TABLET BY MOUTH ONCE DAILY FOR 30 DAYS. STOP CELEXA. budesonide-formoterol [Symbicort] 160-4.5 mcg/actuation HFA aerosol inhaler 2 puff inhalation BID Rx Instructions: administer with spacer, rinse mouth after each use apixaban 5 mg tablet 5 mg PO BID cyclobenzaprine 10 MG tablet 10 mg PO QHS Patient Comments: muscle relaxer alprazolam 0.5 mg tablet 0.5 mg PO DAILY PRN (Reason: anxiety) albuterol sulfate 2.5 mg /3 mL (0.083 %) solution for nebulization 1.25 mg inhalation Q4H PRN (Reason: sob/wheezing) atorvastatin 10 mg tablet 10 mg PO QHS docusate sodium [Colace] 100 mg capsule 100 mg PO DAILY fluticasone propionate [Flonase Allergy Relief] 50 mcg/actuation spray,suspension 1 spray intranasal DAILY Rx Instructions: administer into each nostril fluticasone propion-salmeterol [Advair Diskus] 250-50 mcg/dose blister with device 1 inh inhalation BID gabapentin 300 mg capsule 300 mg PO BID loratadine [Allergy Relief (loratadine)] 10 mg tablet 10 mg PO DAILY melatonin 5 mg tablet 5 mg PO QHS multivitamin [Daily Multi-Vitamin] Tablet 1 tab PO DAILY prednisone 20 mg tablet 40 mg PO DAILY 5 Days Qty: 10 0RF Primary Care Provider: Gurpreet Tyson Referrals: Bj Vo DO [Med Staff - Active Staff] - Activity Restrictions/Additional Instructions: Thank you for trusting us with your care today! Please take Tylenol (2 pills, 650 mg), ibuprofen (2 pills, 400 mg) every 6 hours as needed for pain and fever control. Please return to the emergency department if your symptoms change or worsen. Please follow with Orthopedic surgery (Dr. Vo) For further outpatient evaluation and management. Print Language: Indonesian Disposition Disposition: Home, Self Care Discharge Date/Time: 05/02/24 21:29
--- NOTE | 2024-05-02 17:18 | RAD_ITS ---
STUDY: X-RAY - LEFT SHOULDER REASON FOR EXAM: Female, 63 years old. left shoulder pain TECHNIQUE: 4 view(s) of the shoulder. COMPARISON: None. FINDINGS: Severe degenerative changes of the glenohumeral joint. Severe loss of joint space. Prominent osteophytes. Flattening and irregularity of the humeral head. Sclerosis of the glenoid and the humerus may represent avascular necrosis. Waoc-ou-jyrhtlam coracoclavicular osteoarthritis. Normal humeral head and visualized proximal humerus. The soft tissue structures are unremarkable. There is no demonstrated fracture. Normal visualized pulmonary apex. RAD/Shoulder min 2 Views IMPRESSION: No definite acute abnormality. Severe osteoarthritis and possible avascular necrosis. Electronically Signed: Joseph Wallace MD at 18:52 EDT ,
[2024-05-02] MEDS: Ketorolac 15 MG/ML Vial IV (17:39)
[2024-05-02 19:25] VITALS: BP 150/78; PULSE 78; RESP 16; TEMP 36.8; O2SAT 95
[2024-05-02] MEDS: Morphine 4 MG/ML Syringe IV (20:02)
== END 2024-05-02 21:29 | disposition home or self-care (01) ==
PROVIDERS: Emergency Provider Emergency Medicine; Visit Provider Emergency Medicine
DX: S46.019A Strain of muscle(s) and tendon(s) of the rotator cuff of unspecified shoulder, initial encounter (principal); M87.9 Osteonecrosis, unspecified; Z87.891 Personal history of nicotine dependence; I10 Essential (primary) hypertension; M19.90 Unspecified osteoarthritis, unspecified site; G47.33 Obstructive sleep apnea (adult) (pediatric); J45.909 Unspecified asthma, uncomplicated; Z86.711 Personal history of pulmonary embolism; K21.9 Gastro-esophageal reflux disease without esophagitis; X50.9XXA Other and unspecified overexertion or strenuous movements or postures, initial encounter
CPT/HCPCS: 73030; 96374; 96375; 99283; A4216

== ENCOUNTER 2024-05-14 05:46 | Day surgery (SDC) | payer MEDICARE, MEDICAID, SELFPAY ==
[2024-05-14] VITALS (16 sets, daily range): BP systolic 102–154; BP diastolic 63–93; PULSE 63–77; RESP 12–18; TEMP 36.4–37.1; O2SAT 92–98; BMI 54.5
--- NOTE | 2024-05-14 | EGD_PTH ---
PATIENT: SAULO PUENTES LOC: EN U#:[id number] AGE/SX: 63/F ROOM: RE05/14/[address]: Dr. Ifeanyi Gilmore DO : 1960 BED: DIS: 05/14/2024 SPEC #: [id number] RECD: 05/14/24 10:24 STATUS: RITA RON #: [id number] CED: 05/14/24 00:[address]: Ifeanyi Gilmore DEPT: SURGICAL PATHOLOGY RECD BY: Thalia Reza ENTERED: 05/14/24 11:52 SP TYPE: EGD BIOPSY OT DR: Dr. Matt Penn MD Tissues: Esophagus, NOS Procedures: Surgery Specimen Level IV HEADER OPERATION: EGD, biopsy, dilatation PRE-OP DIAGNOSIS: Dysphagia TISSUE SUBMITTED: Random esophagus biopsy MICROSCOPIC DIAGNOSIS Esophagus, random biopsy: No pathologic change. No evidence of inflammation. See comment. SHOBHA/mr 05/15/2024 COMMENT Clinical correlation is suggested. MICROSCOPIC DESCRIPTION Slides are reviewed. GROSS DESCRIPTION Received in fixative is one container labeled with the patient's name and designated Random esophagus biopsy. The specimen consists of multiple irregular fragments of light olivas soft tissue that in aggregate measure 1.0 x 0.5 x 0.1 cm. The specimen is totally submitted in one cassette. IRAJ/ 05/14/2024 TC:5 CPT:06694
[2024-05-14] MEDS: Lactated Ringers 1,000 ML 15 ML IV (06:14)
--- NOTE | 2024-05-14 06:35 | PRE.ANES_ITS ---
ASA Classification* ASA Classification ASA Classification: 3 Assessment & Plan Anesthesia* Anesthesia Assessment Anesthesia Assessment: Discussed sedation and/or anesthesia options, risks, benefits, and alternatives with patient/parents/legal guardian/POA. Questions invited. The patient/parents/legal guardian/POA seems to understand and agrees to proceed with anesthesia plan. Reviewed the physical assessment, medical history, allergy history and patient home medications list prior to surgery/procedure/anesthetic and documented any changes. Performed airway and anesthesia risk assessments. Anesthesia Type Anesthesia Type: MAC History Source History Obtained from:: Patient and Chart Anesthesia Focused Assessment* Temperature: 97.5 F Pulse Rate: 75 Blood Pressure: 102/65 Respiratory Rate: 16 Pulse Ox: 95 Airway Assessment Mouth opens: >3 cm Mallampati Score: II Teeth Condition: Intact Neck Range of motion (ROM): Full ROM Focused Labs Anesthesia Preop lab: CBC WBC 7.4 K/mm3 (4.4-11.0) 07/20/23 16:42 RBC 4.39 M/mm3 (4.2-5.4) 07/20/23 16:42 Hgb 11.3 g/dL (12.0-15.0) L 07/20/23 16:42 Hct 36.8 % (37-47) L 07/20/23 16:42 Plt Count 294 K/mm3 (150-450) 07/20/23 16:42 CHEMISTRY Potassium 4.0 mmol/L (3.5-5.1) 07/20/23 16:42 Sodium 141 mmol/L (136-145) 07/20/23 16:42 Magnesium 2.2 mg/dL (1.8-2.4) 01/10/16 09:53 BUN 18 mg/dL (7-18) 07/20/23 16:42 Creatinine 0.76 mg/dL (0.55-1.02) 07/20/23 16:42 Glucose 116 mg/dL (74-106) H 07/20/23 16:42 POC Glucose 107 mg/dL (74-106) H 09/05/22 11:46 TSH 1.00 uIU/mL (0.358-3.74) 06/05/14 13:13 COAG PT 13.2 SECONDS (11.7-14.9) 10/15/22 23:58 Pre-Assessment Diagnosis/Proposed Procedure Planned Operative Procedure(s): egd Anesthesia History Anesthesia History - facilities officer: Anesthesia History - facilities officer Hx Hospitalization Yes: left aka 05/08/24 16:23 Any Problems With Anesthesia No 05/08/24 16:23 Cholinesterase deficiency No 05/08/24 16:23 You/Your Family Experience No 05/08/24 16:23 fever (hyperthermia) with Relationship Recent Exposure to Contagious No 05/14/24 06:05 Disease Does patient have nerve No 05/08/24 16:23 stimulator Patient instructed to have device shut off --Does patient have Pacemaker No 05/14/24 06:05 or ICD? When Was Last Pacemaker Check QUESTION #4 FULL TEXT: You/Your Family Experience fever (hyperthermia) with Anesthesia Last Oral Intake Last Oral intake: Last Oral Intake NPO since 00:00 05/14/24 06:05 Meds taken in AM with sips of water? Meds patient instructed to take am of surgery PONV PONV - facilities officer: PONV - facilities officer Female Yes 05/08/24 16:23 HX of Motion Sickness No 05/08/24 16:23 HX of N/V After Surgery No 05/08/24 16:23 Non-Smoker Yes 05/08/24 16:23 Duration of Surgery greater No 05/08/24 16:23 than 60 minutes Number of Risk Factors 2 05/08/24 16:23 PONV Score Moderate Risk 05/08/24 16:23 Height & Weight Height & Weight: Anesthesia: Height & Weight Height 5 ft 6 in 05/14/24 06:05 Weight: 153.314 kg 05/14/24 06:05 Body Mass Index (BMI) 54.5 05/14/24 06:05 Respiratory Assessment Respiratory Assessment - facilities officer: Respiratory Tract Infection Hx - facilities officer Hx Respiratory Tract Infection No 05/08/24 16:23 STOP Sleep Apnea STOP Sleep Apnea - facilities officer: STOP Sleep Apnea - facilities officer Hx Hypertension Yes 05/08/24 16:23 Hx Sleep Apnea Yes 05/08/24 16:23 CPAP No 05/08/24 16:23 BIPAP Yes 05/08/24 16:23 Do you snore loudly (louder than talking or can be heard Do you often feel tired/ fatigued/ sleepy during daytime? Has anyone observed you stop breathing during sleep? STOP Results Positive 05/08/24 16:23 QUESTION #5 FULL TEXT : Do you snore loudly (louder than talking or can be heard through closed doors)? 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 Specify any problems Hx of Preganancy in last 3 N/A 05/08/24 16:23 Months Nurse Filling Out Transfusion NBUCHER 05/08/24 16:23 & Questions: Date: 05/08/24 05/08/24 16:23 Time: 16:31 05/08/24 16:23 Patient unable to answer at this time (ie. confused, unrespo /Reproduction History /Reproductive History - facilities officer: /Reproductive Hx- facilities officer Hx Now No 05/08/24 16:23 Gestational Age (in weeks): EDC: Hx Hx Para Hx Section SAB No 05/08/24 16:23 Active Medications Active Medications: Current Medications Generic Name Dose Route Start Last Admin Trade Name Freq PRN Reason Stop Dose Admin Lactated Ringer's 1,000 mls @ 15 mls/hr 05/14/24 06:00 05/14/24 06:14 IV 15 mls/hr .Q48H JIL Administration PFSH Medical History Bruising History of steroid therapy Diabetes Uses wheelchair Arthritis DVT (deep venous thrombosis) Easy bruising Migraine headache Gastric reflux COPD (chronic obstructive pulmonary disease) Shortness of breath on exertion Below-knee amputation of left lower 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 Pulmonary embolism Current use of senior living anticoagulation Chronic wound of extremity Anemia Necrotizing fasciitis Below knee amputation Depression Rheumatoid arthritis GERD (gastroesophageal reflux disease) Former smoker BiPAP (biphasic positive airway pressure) dependence Sleep apnea Hypertension Failure of outpatient treatment Anxiety and depression Bronchospasm Asthma exacerbation Family history of diabetes mellitus (DM) Restless leg syndrome Obstructive sleep apnea Morbid obesity Fibromyalgia Reflex sympathetic dystrophy Benign essential HTN Asthma Anxiety Home Medications ?Medication ?Instructions ?Recorded ?Last Taken ?Type potassium chloride 20 mEq 20 meq PO DAILY supplement 11/01/18 08/31/22 History tablet,extended release(part/cryst) albuterol sulfate 90 mcg/actuation 2 puff inhalation Q6H PRN 05/11/21 08/24/22 Rx aerosol inhaler shortness of breath or wheezing #8.5 grams valsartan 320 mg tablet 320 mg PO DAILY heart 05/19/21 08/31/22 History omeprazole 40 mg capsule,delayed 40 mg PO DAILY gerd 06/15/21 08/31/22 History release pramipexole 1.5 mg tablet 3 mg PO QHS rls 06/15/21 08/30/22 History amitriptyline 100 mg tablet 100 mg PO QHS PAIN AND SLEEP 08/31/22 08/30/22 History cholecalciferol (vitamin D3) 1,250 1,250 mcg PO MO SUPPLEMENT 08/31/22 08/28/22 History mcg (50,000 unit) capsule escitalopram oxalate 20 mg tablet 10 mg PO DAILY depression 10/16/22 Unknown History metoprolol succinate 50 mg 50 mg PO DAILY blood pressure 10/16/22 Unknown History tablet,extended release 24 hr montelukast 10 mg tablet 10 mg PO DAILY asthma 10/16/22 Unknown History albuterol sulfate 2.5 mg/3 mL 1.25 mg inhalation Q4H PRN 07/21/23 Unknown History (0.083 %) solution for nebulization sob/wheezing atorvastatin 10 mg tablet 10 mg PO QHS cholesterol 07/21/23 Unknown History docusate sodium 100 mg capsule 100 mg PO DAILY constipation 07/21/23 Unknown History (Colace) fluticasone 250 mcg-salmeterol 50 1 inh inhalation BID copd 07/21/23 Unknown History mcg/dose blistr powdr for inhalation (Advair Diskus) fluticasone propionate 50 1 spray intranasal DAILY allergies 07/21/23 Unknown History mcg/actuation nasal spray,suspension (Flonase Allergy Relief) gabapentin 300 mg capsule 300 mg PO BID phantom pain 07/21/23 Unknown History loratadine 10 mg tablet (Allergy 10 mg PO DAILY allergies 07/21/23 Unknown History Relief (loratadine)) melatonin 5 mg tablet 5 mg PO QHS sleep 07/21/23 Unknown History multivitamin (Daily Multi-Vitamin 1 tab PO DAILY supplement 07/21/23 Unknown History tablet) buprenorphine HCl 150 mcg buccal 150 mcg buccal Q12H 05/06/24 Unknown History film metformin 850 mg tablet 850 mg PO DAILY 05/06/24 Unknown History sertraline 50 mg tablet 50 mg PO DAILY 05/06/24 Unknown History acetaminophen 500 mg tablet 1,000 mg PO Q8H PRN PRN pain 05/08/24 Unknown History (Acetaminophen Extra Strength) hydroxyzine pamoate 25 mg capsule 25 mg PO Q6H PRN anxiety 05/08/24 Unknown History (Vistaril) Allergy/AdvReac Type Severity Reaction Status Date / Time losartan (From Cozaar) Allergy Mild Rash Verified 05/14/24 06:03 cefepime Allergy Unknown NEEDS Verified 05/14/24 06:03 FOLLOW-UP clonazepam Allergy Unknown NEEDS Verified 05/14/24 06:03 FOLLOW-UP hydromorphone Allergy Unknown NEEDS Verified 05/14/24 06:03 FOLLOW-UP ketamine Allergy Unknown NEEDS Verified 05/14/24 06:03 FOLLOW-UP lisinopril Allergy Unknown NEEDS Verified 05/14/24 06:03 FOLLOW-UP vancomycin Allergy Rash Verified 05/14/24 06:03 amlodipine AdvReac Swelling Verified 05/14/24 06:03 Family History Mother Hypertension Cancer Pancreatic Diabetes Father Cancer pancreatic Brother Diabetes Grandfather Diabetes Surgical History Hx of breast reduction, elective Chronic knee pain after total replacement of left knee joint H/O foot surgery History of hysterectomy History of tonsillectomy Social History household members: significant other Smoking Status: Former smoker alcohol intake: never substance use type: does not use Review of Systems (Anesthesia) ROS Narrative System reviewed and no additional complaints, except as documented.
[2024-05-14 06:36] LABS: Bedside Glucose 108 mg/dL (74-106)
--- NOTE | 2024-05-14 06:38 | PCM.HP.BLA ---
History and Physical Date of Admission: 05/14/24 SAULO PUENTES, is a 63 F who presents to the office today for initial consult. *BGI established 8.6.24 pt reports that she has difficulty swallowing that began around 3 months ago; struggles with mostly meat and bread. Pt reports that she had an EGD with dilation about 15 years ago which was very helpful. ROS Const Constitutional: Positive for weakness; No fatigue, fever(s) or weight change ENT ENT: Positive for difficulty swallowing Cardio Cardiology: Positive for leg pain with exertion Gastro GI: Positive for constipation, heartburn and difficulty swallowing; No abdominal pain, belching, bloating, change in bowel habits, change in stool character, coffee ground emesis, cramping, diarrhea, feeling full early, excessive flatus, incontinent of stools, Vomiting blood/hematemesis, Blood in stool, loose stools, Black,tarry stools, nausea/dyspepsia, pain with swallowing, vomiting or other Musc Musculoskeletal: Positive for joint pain, joint swelling, muscle cramps, muscle weakness, Arthritis, restless legs, leg pain at night and leg pain with exertion Skin Skin: No yellowing of the eye or itchy eyes Neuro Neurology: Positive for weakness, restless legs and tremor(s) Psych Psychiatric: Positive for anxiety, Positive for depression and Positive for hyperactivity Endo Endocrine: No fatigue or weight change Aller/Imm Allergy/Immunologic: No itchy eyes Jay/Lymp Hematologic/Lymphatic: Positive for easy bruising; No easy bleeding Exam Const General: cooperative and comfortable Nutritional Appearance: average body habitus and well nourished HENWI Head: normal to inspection Ears: hearing grossly normal bilaterally Nose: external nose normal Face and sinus: normal facial exam Mouth: oral mucosae normal Throat: posterior oropharynx normal Eyes General: appearance normal, both eyes and all related structures Neck Neck: normal visual inspection Chest Chest palpation & inspection: normal inspection of the chest and normal palpation of entire chest wall Resp Effort & Inspection: normal respiratory effort Auscultation: Bilateral: Clear to Auscultation Cardio Palpation: normal PMI Rate: regular rate Rhythm: regular rhythm GI Inspection: normal to inspection Auscultation: normal bowel sounds Percussion: normal to percussion Palpation: no hepatosplenomegaly Skin General: no rashes or lesions noted Neuro General: patient alert Extrem General: normal to inspection Psych Affect: normal affect Assessment and Plan Assessment and Plan (1) Dysphagia: Status: Acute Plan: 63-year-old with a past medical history of asthma, hypertension, mild diabetes, gastroesophageal reflux disease comes in with worsening esophageal dysphagia. She has a history of esophageal ring associated with hiatal hernia. She is having solid food dysphagia. She denies any chest pain or shortness of breath. She has not had any recent steroid therapy. She denies any cough, fever or abdominal pain. She underwent an upper endoscopy by Dr. Davis approximately 12 years ago for esophageal dysphagia and at that time she had an esophageal ring dilated. She will undergo an upper endoscopy to evaluate upper GI tract. She was explained alternatives, risk, benefits including not withstanding bleeding, infection, sepsis, perforation, need for emergent surgery . She will have an ASA of 3. I have examined the patient and the H&P has been reviewed. There are no clinical changes since date of exam.
--- NOTE | 2024-05-14 07:07 | PCM.POST.ANE ---
Anesthesia: Postop Eval I Current Vital Signs Temperature: 98.8 F Pulse Rate: 72 Blood Pressure: 116/84 Respiratory Rate: 18 Pulse Ox: 98 Oxygen Delivery Method: Room Air Assessment Airway patent: Yes Spontaneous unlabored respirations: Yes Mental status: Awake and Calm nausea: No Vomiting: No Anesthesia Complication: No Fluid Hydration Crystalloid volume administer (ml): 400 Total IV fluid infused: 400 Progress Note Anesthesia document: Postop Eval 1 completed: Yes
[2024-05-14] MEDS: Ketorolac 30 MG/ML Syringe IV (07:13)
[2024-05-14] MEDS: Morphine 4 MG/ML Syringe 6 MG IV (07:20)
--- NOTE | 2024-05-14 07:29 | OP.EGD_ITS ---
Patient Name: Siobhan Haas Procedure Date: 05/14/2024 6:45 AM Date of : 1960 Age: 63 Procedure: Upper GI endoscopy Indications: Dysphagia Providers: DO Tae Martins MD: Matt Penn MD Medicines: Monitored Anesthesia Care Patient Profile: This is a 63 year old female. Refer to note in patient chart for documentation of history and physical. Patient has symptoms of dysphagia with solids. Complications: No immediate complications. Procedure: Pre-Anesthesia Assessment: - Prior to the procedure, a History and Physical was performed, and patient medications and allergies were reviewed. The patient is competent. The risks and benefits of the procedure and the sedation options and risks were discussed with the patient. All questions were answered and informed consent was obtained. Patient identification and proposed procedure were verified by the physician in the pre-procedure area. Mental Status Examination: alert and oriented. Airway Examination: normal oropharyngeal airway and neck mobility. Respiratory Examination: clear to auscultation. CV Examination: normal. Prophylactic Antibiotics: The patient does not require prophylactic antibiotics. Prior Anticoagulants: The patient has taken no anticoagulant or antiplatelet agents. ASA Grade Assessment: III - A patient with severe systemic disease. After reviewing the risks and benefits, the patient was deemed in satisfactory condition to undergo the procedure. The anesthesia plan was to use monitored anesthesia care (MAC). Immediately prior to administration of medications, the patient was re-assessed for adequacy to receive sedatives. The heart rate, respiratory rate, oxygen saturations, blood pressure, adequacy of pulmonary ventilation, and response to care were monitored throughout the procedure. The physical status of the patient was re-assessed after the procedure. After obtaining informed consent, the endoscope was passed under direct vision. Throughout the procedure, the patient's blood pressure, pulse, and oxygen saturations were monitored continuously. The Endoscope was introduced through the mouth, and advanced to the second part of duodenum. The upper GI endoscopy was accomplished without difficulty. The patient tolerated the procedure well. Scope In: 6:50:58 AM Scope Out: 6:58:39 AM Total Procedure Duration Time 0 hours 7 minutes 41 seconds Findings: Abnormal motility was noted in the esophagus. The cricopharyngeus was abnormal. There are extra peristaltic waves in the esophageal body. The distal esophagus/lower esophageal sphincter is spastic, but gives up passage to the endoscope. Tertiary peristaltic waves are noted. Biopsies were taken with a cold forceps for histology. Verification of patient identification for the specimen was done. Estimated blood loss was minimal. A guidewire was placed and the scope was withdrawn. Dilation was performed with a Savary dilator with no resistance at 60 Fr. The dilation site was examined and showed moderate improvement in luminal narrowing. Estimated blood loss was minimal. Multiple 5 mm sessile polyps with no stigmata of recent bleeding were found in the gastric fundus and in the gastric body. Moderate gastric antral vascular ectasia without bleeding was present in the gastric antrum. No gross lesions were noted in the second portion of the duodenum. Impression: - Abnormal esophageal motility, suspicious for esophageal spasm. Biopsied. Dilated. - Multiple gastric polyps. - Gastric antral vascular ectasia without bleeding. - No gross lesions in the second portion of the duodenum. Recommendation: - Discharge patient to home. - Resume previous diet. - Continue present medications. - Await pathology results. Procedure Code(s): --- Professional --- 44667, Esophagogastroduodenoscopy, flexible, transoral; with insertion of guide wire followed by passage of dilator(s) through esophagus over guide wire 12272, 59,51, Esophagogastroduodenoscopy, flexible, transoral; with biopsy, single or multiple CPT copyright 2021 [employer]. All rights reserved. The codes documented in this report are preliminary and upon pharmacy care coordinator review may be revised to meet current compliance requirements. Ifeanyi Gilmore DO 05/14/2024 7:28:36 AM This report has been signed electronically. Number of Addenda: 0 Note Initiated On: 05/14/2024 6:45 AM
--- NOTE | 2024-05-14 07:29 | OP.CCLET_ITS ---
05/14/2024 Matt Penn MD [address] [place] [address] Re : Upper GI endoscopy procedure for Siobhan Haas Dear Dr. Penn This procedure was performed on Tuesday, May 14, 2024. My impressions and recommendations are as follows: Impressions : - Abnormal esophageal motility, suspicious for esophageal spasm. Biopsied. Dilated. - Multiple gastric polyps. - Gastric antral vascular ectasia without bleeding. - No gross lesions in the second portion of the duodenum. Recommendations : - Discharge patient to home. - Resume previous diet. - Continue present medications. - Await pathology results. My findings are described in the full procedure note, which is enclosed. If I can be of further assistance, please feel free to contact me at . Sincerely, Ifeanyi Gilmore, 05/14/2024 7:28:36 AM This report has been signed electronically.
[2024-05-14] MEDS: HYDROmorphone 1 MG/ML Syringe IV (07:51)
--- NOTE | 2024-05-14 08:24 | PCM.POSTANE2 ---
Anesthesia Postop Eval I Sum Postop Eval Completion status Anesthesia document: Postop Eval 1 completed: Yes Anesthesia Postop Eval I Summary Anesthesia Postop Eval I Summary: Anesthesia Postop Eval I: Assessment Summary Airway patent Yes 05/14/24 07:09 [email or web address] Spontaneous unlabored Yes 05/14/24 07:09 [email or web address] respirations Mental status Awake,Calm 05/14/24 07:09 [email or web address] nausea No 05/14/24 07:09 [email or web address] Vomiting No 05/14/24 07:09 [email or web address] Anesthesia Postop Eval I: Fluid Summary Crystalloid volume administer 400 05/14/24 07:09 [email or web address] (ml) Colloids volume administered ( ml) Blood Product volume administered (ml) Total IV fluid infused 400 05/14/24 07:09 [email or web address] Anesthesia Postop Eval I: Summary Notes Anesthesia Complication No 05/14/24 07:09 [email or web address] Anesthesia Complication Comment: Post-operative progress note Anesthesia: Postop Eval II Evaluation Mental status: Awake and Apprehensive Pain Level: 7 nausea: No Vomiting: No Progress Note Post-operative progress note: left arm pain from severs arthritis l shoulder. Dr. Gilmore aware and medicating
--- NOTE | 2024-05-14 10:11 | SUR.PHASEII ---
called [facility] to give report to RONAL .
== END 2024-05-14 10:13 | disposition home or self-care (01) ==
LOC: EN 05:51 → AC 05:51
PROVIDERS: PCP Family Medicine; Referring Provider Family Medicine; Visit Provider Internal Medicine Gastroenterology
PROC: 0DJ08ZZ Inspection of Upper Intestinal Tract, Via Natural or Artificial Opening Endoscopic (ICD-10-PCS; CPT 43235; principal; 2024-05-14 06:25)
DX: K22.4 Dyskinesia of esophagus (principal); E11.9 Type 2 diabetes mellitus without complications; R13.10 Dysphagia, unspecified; K31.7 Polyp of stomach and duodenum; K31.819 Angiodysplasia of stomach and duodenum without bleeding; F32.A Depression, unspecified; F41.9 Anxiety disorder, unspecified; Z79.899 Other long term (current) drug therapy; Z79.84 Long term (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 oral hypoglycemic drugs
CPT/HCPCS: 43248; 43239; 82962; 88305; J7120; C1769; J2405

== ENCOUNTER → 2024-07-11 | Day surgery (SDC) | payer MEDICARE, MEDICAID, SELFPAY ==
[2024-07-11] MEDS: Lidocaine Jelly 2% 20 ML Syringe (URO-JET) 1 APPLIC (08:25)
[2024-07-11 10:49] VITALS: BP 137/79; PULSE 72; RESP 15; TEMP 36.6; O2SAT 96
== END | disposition home or self-care (01) ==
LOC: EN 06:52
PROVIDERS: PCP Family Medicine; Referring Provider Family Medicine; Visit Provider Internal Medicine Gastroenterology
PROC: F00ZJWZ Instrumental Swallowing and Oral Function Assessment using Swallowing Equipment (ICD-10-PCS; CPT 43235; principal; 2024-07-11 07:55)
DX: K21.9 Gastro-esophageal reflux disease without esophagitis (principal); K22.89 Other specified disease of esophagus
CPT/HCPCS: 91010

== ENCOUNTER 2025-01-14 08:17 | Inpatient (IN) | payer MEDICARE, MEDICAID, SELFPAY ==
[2025-01-14] VITALS (18 sets, daily range): BP systolic 101–210; BP diastolic 49–169; PULSE 70–108; RESP 12–34; TEMP 36.3–38.3; O2SAT 94–99; BMI 57.6; BMI 81.0
--- NOTE | 2025-01-14 08:26 | EKG12_ITS ---
Test Reason : SOB Blood Pressure : */* mmHG Vent. Rate : 95 BPM Atrial Rate : 95 BPM P-R Int : 164 ms QRS Dur : 88 ms QT Int : 324 ms P-R-T Axes : 32 -29 63 degrees QTcB Int : 407 ms Normal sinus rhythm Cannot rule out Anterior infarct , age undetermined Abnormal ECG When compared with ECG of 14-Jan-2025 08:31, MANUAL COMPARISON REQUIRED DATA IS UNCONFIRMED Confirmed by Maikel Aldridge ([id number]), tape editor ANJUM BERNSTEIN ([id number]) on 01/19/2025 8:48:33 AM Referred By: GUS Confirmed By: Maikel Aldridge
--- NOTE | 2025-01-14 08:30 | ED.VIS.DYS ---
HPI History of Present Illness Chief Complaint: Shortness of Breath Informant: patient, EMS and SNF Narrative Narrative: 64-year-old female presenting to the emergency room with shortness of breath. Patient states that yesterday she felt fine. She states that she slept okay during the night, par for her normal sleep with occasional up-and-down. This morning she went to get into a chair and suddenly felt short of breath with some midsternal chest tightness. She was noted to be bluish hue around the lips and was noted to be hypoxic at 85. She wears BiPAP/CPAP at night and was put back on that. EMS was called. Prehospital EKG does not demonstrate STEMI. Patient denies significant cough. She has a history of prior DVT/PE but is not currently on anticoagulation. She does not recall what she was on before. She is noted by nursing to have a fever of 101 orally. She has not felt feverish yesterday or during the night. Brief review of the patient's chart shows that the patient had pulmonary embolism in 2021. She was on Eliquis. She had respiratory failure at that time but was also complicated by sepsis due to cellulitis. Patient reportedly has had significant red man syndrome to vancomycin. 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 Chronic wound of extremity Anemia Necrotizing fasciitis Below knee amputation Depression Rheumatoid arthritis GERD (gastroesophageal reflux disease) Former smoker BiPAP (biphasic positive airway pressure) dependence Sleep apnea Hypertension Failure of outpatient treatment Anxiety and depression Bronchospasm Asthma exacerbation Family history of diabetes mellitus (DM) Restless leg syndrome Obstructive sleep apnea Morbid obesity Fibromyalgia Reflex sympathetic dystrophy Benign essential HTN Asthma Anxiety Home Medications ?Medication ?Instructions ?Recorded ?Last Taken ?Type albuterol sulfate 90 mcg/actuation 2 puff inhalation Q6H PRN 05/11/21 08/24/22 Rx aerosol inhaler shortness of breath or wheezing #8.5 grams valsartan 320 mg tablet 320 mg PO DAILY heart 05/19/21 08/31/22 History omeprazole 40 mg capsule,delayed 40 mg PO DAILY gerd 06/15/21 08/31/22 History release pramipexole 1.5 mg tablet 3 mg PO QHS RESTLESS LEG SYNDROME 06/15/21 08/30/22 History amitriptyline 100 mg tablet 100 mg PO QHS PHANTOM 08/31/22 08/30/22 History PAIN/DEPRESSION cholecalciferol (vitamin D3) 1,250 1,250 mcg PO MO SUPPLEMENT 08/31/22 08/28/22 History mcg (50,000 unit) capsule metoprolol succinate 50 mg 50 mg PO DAILY blood pressure 10/16/22 Unknown History tablet,extended release 24 hr montelukast 10 mg tablet 10 mg PO DAILY asthma 10/16/22 Unknown History albuterol sulfate 2.5 mg/3 mL 1.25 mg inhalation Q4H PRN 07/21/23 Unknown History (0.083 %) solution for nebulization sob/wheezing atorvastatin 10 mg tablet 10 mg PO QHS cholesterol 07/21/23 Unknown History docusate sodium 100 mg capsule 100 mg PO DAILY constipation 07/21/23 Unknown History (Colace) fluticasone 250 mcg-salmeterol 50 1 inh inhalation BID copd 07/21/23 Unknown History mcg/dose blistr powdr for inhalation (Advair Diskus) fluticasone propionate 50 1 spray intranasal DAILY allergies 07/21/23 Unknown History mcg/actuation nasal spray,suspension (Flonase Allergy Relief) gabapentin 300 mg capsule 300 mg PO DAILY phantom pain 07/21/23 Unknown History loratadine 10 mg tablet (Allergy 10 mg PO DAILY allergies 07/21/23 Unknown History Relief (loratadine)) melatonin 5 mg tablet 5 mg PO QHS sleep 07/21/23 Unknown History multivitamin (Daily Multi-Vitamin 1 tab PO DAILY supplement 07/21/23 Unknown History tablet) metformin 850 mg tablet 850 mg PO BID DIABETES 05/06/24 Unknown History sertraline 50 mg tablet 50 mg PO DAILY DEPRESSION 05/06/24 Unknown History acetaminophen 500 mg tablet 1,000 mg PO Q8H PRN pain 05/08/24 Unknown History (Acetaminophen Extra Strength) hydroxyzine pamoate 25 mg capsule 25 mg PO Q6H PRN anxiety 05/08/24 Unknown History (Vistaril) bisacodyl 10 mg rectal suppository 10 mg AR QHS PRN constipation 04/16/25 Unknown History buprenorphine HCl 300 mcg buccal 300 mcg buccal BID 01/14/25 Unknown History film (Belbuca) diphenhydramine HCl 25 mg tablet 25 mg PO Q4H PRN allergic reaction 01/14/25 Unknown History (Benadryl Allergy) gabapentin 300 mg capsule 600 mg PO QHS FOR PHANTOM PAIN 01/14/25 Unknown History guaifenesin 100 mg/5 mL oral 200 mg PO Q6H PRN cough 01/14/25 Unknown History liquid (Adult Tussin Chest Congestion) guaifenesin 600 mg tablet, 600 mg PO BID PRN congestion 01/14/25 Unknown History extended release 12 hr (Mucinex) ibuprofen 200 mg tablet (Advil) 400 mg PO Q12H PRN pain 01/14/25 Unknown History lidocaine 5 % topical patch 1 patch topical QHS PAIN 01/14/25 Unknown History (DermacinRx Lidocan) magnesium hydroxide 400 mg/5 mL 2,400 mg PO DAILY PRN constipation 01/14/25 Unknown History oral suspension (Dulcolax (magnesium hydroxide)) mineral oil (Fleet Mineral Oil 118 ml AR DAILY PRN constipation 01/14/25 Unknown History enema) polyethylene glycol 3350 17 17 g PO DAILY PRN constipation 01/14/25 Unknown History gram/dose oral powder (ClearLax) potassium chloride 20 mEq/15 mL 6.6667 meq PO BID SUPPLEMENT 01/14/25 Unknown History oral liquid saliva substitute combo no.9 15 ml mucous membrane DAILY DRY 01/14/25 Unknown History (Biotene Dry Mouth Oral Rinse MOUTH mouthwash) Allergy/AdvReac Type Severity Reaction Status Date / Time losartan (From [facility]) Allergy Mild Rash Verified 12/29/24 12:52 cefepime Allergy Unknown NEEDS Verified 12/29/24 12:52 FOLLOW-UP clonazepam Allergy Unknown NEEDS Verified 12/29/24 12:52 FOLLOW-UP hydromorphone Allergy Unknown NEEDS Verified 12/29/24 12:52 FOLLOW-UP ketamine Allergy Unknown NEEDS Verified 12/29/24 12:52 FOLLOW-UP lisinopril Allergy Unknown NEEDS Verified 12/29/24 12:52 FOLLOW-UP vancomycin Allergy Rash Verified 12/29/24 12:52 amlodipine AdvReac Swelling Verified 12/29/24 12:52 Family History Mother Hypertension Cancer Pancreatic Diabetes Father Cancer pancreatic Brother Diabetes Asthma Hypertension Grandfather Diabetes Surgical History Hx of BKA Hx of breast reduction, elective Chronic knee pain after total replacement of left knee joint H/O foot surgery History of hysterectomy History of tonsillectomy Social History household members: significant other Smoking Status: Former smoker alcohol intake: never substance use type: does not use ROS ROS ED Constitutional Constitutional ED: Reports fever(s); Denies chills or weight loss Eyes Eyes: Denies change in vision or diplopia ENT ENT ED: Denies ear pain, rhinorrhea or sore throat Cardiovascular Cardiovascular: Denies chest pain, orthopnea, palpitations or racing heartbeat Respiratory/Chest Respiratory/Chest: Reports dyspnea and dyspnea on exertion; Denies cough or orthopnea Gastrointestinal Gastrointestinal: Denies abdominal pain, diarrhea, nausea or vomiting Genitourinary Genitourinary ED: Denies dysuria, hematuria or urinary frequency Musculoskeletal Musculoskeletal: Denies arthralgias or myalgias Integumentary Denies abscess or rash Neurologic Neurologic: Denies headache(s) or weakness Psychiatric Psychiatric: Denies anxiety, depression, suicidal ideation or suicidal thoughts Endocrine Endocrinology: Denies polydipsia, polyphagia or polyuria Allergic/Immunologic Allergic/Immunologic ED: Denies mouth swelling, tongue swelling or urticaria EXAM Physical Exam Const Vital Signs: 01/14/25 08:18 01/14/25 08:23 01/14/25 08:24 Temperature 101 F H 101 F H Temperature Source Oral Oral Pulse Rate 108 H 108 H Respiratory Rate 25 H 24 H Respiratory Effort Short of Breath Labored Respiratory Depth Shallow Respiratory Pattern Tachypnea Blood Pressure 164/120 H 164/120 H Blood Pressure Mean 134 134 Pulse Ox 98 95 Oxygen Delivery Method Bi-pap Bi-pap Bi-pap Fraction of Inspired Oxygen (FIO2) 01/14/25 08:26 01/14/25 08:26 01/14/25 08:28 Temperature Temperature Source Pulse Rate 98 Respiratory Rate 34 H Respiratory Effort Short of Breath Labored Respiratory Depth Respiratory Pattern Normal Blood Pressure Blood Pressure Mean Pulse Ox 95 Oxygen Delivery Method Bi-pap Fraction of Inspired Oxygen (FIO2) 60 01/14/25 09:17 01/14/25 09:50 01/14/25 09:57 Temperature Temperature Source Pulse Rate 101 H 104 H 104 H Respiratory Rate 20 H 18 18 Respiratory Effort Respiratory Depth Respiratory Pattern Normal Normal Blood Pressure 210/169 H Blood Pressure Mean 182 Pulse Ox 99 96 Oxygen Delivery Method Bi-pap Fraction of Inspired Oxygen (FIO2) 50 01/14/25 10:00 01/14/25 11:00 01/14/25 11:56 Temperature 101 F H Temperature Source Pulse Rate 104 H 98 98 Respiratory Rate 13 19 H 19 H Respiratory Effort Respiratory Depth Respiratory Pattern Blood Pressure 210/169 H Blood Pressure Mean 182 Pulse Ox 99 98 98 Oxygen Delivery Method Bi-pap Bi-pap Fraction of Inspired Oxygen (FIO2) Positive well nourished, well developed and obese General Appearance ED: well developed Nutritional Appearance: obese HEENT Reports normocephalic, head/scalp atraumatic and moist mucous membranes Eyes PERRL and EOMs intact bilaterally Neck no lymphadenopathy, supple and no JVD Resp clear to auscultation bilaterally Resp Narrative: Tachypneic Cardio regular rate, regular rhythm and no murmurs Rate: tachycardic GI normal to inspection, nondistended, normoactive bowel sounds and non-tender Palpation: soft Back/Spine no CVA tenderness and normal ROM Extremity Extremity Narrative: Bilateral below-knee amputations General Extremety ED: Negative for edema General Extremity: Negative for edema Neuro oriented x3 and CN's II-XII intact bilaterally Sensorium / Orientation: alert Motor Exam: strength 5/5 throughout Psych mental status grossly normal Mood & Affect: Negative for depressed or tearful Skin no rashes or lesions noted and no wounds MDM MDM MDM Narrative Medical decision making narrative: Differential diagnosis includes but not limited to pulmonary embolism pneumonia UTI sepsis acute coronary syndrome pneumothorax pleural effusion congestive heart failure aortic dissection aneurysm ABG shows a pH of 7.368. pCO2 50.6 PaO2 128.5 HCO3 29.1. This is on 60% BiPAP. Patient's white count 11.8 hemoglobin 12.2 BMP with creatinine 0.73 lactic acid 1.3 normal LFTs except for alkaline phosphatase 141 troponin 8 proBNP 237 urinalysis with no overt infection. My independent interpretation of the chest x-ray is no definitive infiltrate pleural effusion. Please see radiologist read. EKG is sinus and nonischemic. A CTA of the chest was obtained given the patient's prior history of pulmonary embolism and unexplained hypoxia. This is read by radiology reviewed by myself. This is consistent with a retrocardiac left lower lobe infiltrate. Patient has received DuoNeb. I do not hear significant wheezing on examination. She also received a dose of Levaquin after blood cultures were obtained. She received Tylenol for fever. Plan of care is going to be admission into hospital. She remains on BiPAP for comfort/hypoxemia. History & Record Review Discussion w/independent historian: Patient Additional record(s) reviewed:: Prior inpatient record, Prior ED visit and Prior labs Lab Data Attestation: I reviewed the patient's lab results. Labs: Laboratory Results - last 24 hr 01/14/25 01/14/25 10:11 10:45 WBC 11.8 H RBC 4.28 Hgb 12.2 Hct 37.1 MCV 86.7 MCH 28.5 MCHC 32.9 RDW Std Deviation 48.4 H RDW Coeff of Naga 15.3 H Plt Count 259 MPV 10.5 Immature Gran % (Auto) 0.500 Neut % (Auto) 87.3 H Lymph % (Auto) 5.9 L Tucker % (Auto) 5.2 Eos % (Auto) 0.8 Baso % (Auto) 0.3 Absolute Neuts (auto) 10.3 H Absolute Lymphs (auto) 0.69 L Nucleated RBC % 0 PT 13.7 INR 1.0 APTT 26.3 Sodium 138 Potassium 4.7 Chloride 102 Carbon Dioxide 24.7 Anion Gap 11 BUN 13 Creatinine 0.73 Estim Creat Clear Calc 111.14 Est GFR (MDRD) Non-Af 91 BUN/Creatinine Ratio 17.1 Glucose 124 H Lactic Acid 1.3 Calcium 9.1 Total Bilirubin 0.36 AST 21 ALT 17 Alkaline Phosphatase 141 H Troponin T High Sens 8 NT pro BNP II 237 Total Protein 7.2 Albumin 3.8 Globulin 3.3 Albumin/Globulin Ratio 1.2 Urine Color Yellow Urine Clarity Clear Urine pH 5.0 Ur Specific [place] 1.020 Urine Protein 15 H Urine Glucose (UA) Normal Urine Ketones Negative Urine Occult Blood Negative Urine Nitrite Negative Urine Bilirubin Negative Urine Urobilinogen Normal Ur Leukocyte Esterase Negative Urine RBC 0-5 SEEN Urine WBC 0 SEEN Ur Squamous Epith Cells 0-5 SEEN Urine Bacteria 0 SEEN Hyaline Casts 5-10 SEEN Fine Granular Casts 0-5 SEEN Urine Mucus 1+ ABG Data ABG results: ABG 01/14/25 09:11 Specimen Type ART Sample Site R Radial pH 7.37 Bicarbonate Actual 29.1 H Total CO2 31 Base Excess 4 H O2 Saturation 99 O2 % 60.0 ABG pCO2 50.6 H ABG pO2 129 H Bridger Test Positive Respiration Rate 12 O2 Delivery Device BiPAP Vent Mode BiLevel POC PEEP 8 Radiography Diagnostic Testing: Clinical Impression(s) from Imaging Studies Chest X-Ray 01/14/25 08:55 IMPRESSION: Mild degree of vascular congestion and CHF with bibasilar atelectasis. Reading Location: [facility] Chest CTA 01/14/25 11:05 IMPRESSION: 1. Limited sensitivity for peripheral pulmonary embolism on a technical basis. No central or definite pulmonary embolus identified. 2. Findings are compatible with multifocal LEFT lower lobe predominant pneumonia. Given nodular components, recommend CT chest in 3 months to document resolution. 3. Mild splenomegaly. 4. Additional description as above. Reading Location: [facility] EKG Initial EKG: Attestation: I personally reviewed and interpreted this EKG as follows: Comments: Normal sinus rhythm ventricular rate of 96 bpm Management Discussion w/another healthcare provider: Hospitalist (Dr Trinidad) Discharge Plan Dx/Rx/DC Orders Clinical Impression: Pneumonia, Acute hypoxemic respiratory failure Disposition Disposition: Acute Care Hospital [facility] [place] [facility]
--- NOTE | 2025-01-14 08:55 | RAD_ITS ---
PROCEDURE: CHEST 1 VIEW (PORTABLE) 01/14/2025 REASON FOR EXAM: DYSPNEA TECHNIQUE: Frontal view of the chest. COMPARISON: None FINDINGS: Hardware: EKG electrodes are seen. Heart: Borderline cardiomegaly. Lungs: Mild degree of bibasilar atelectasis with a superimposed vascular congestion and mild CHF. Bones: Degenerative changes are identified within the thoracic spine. Electrodes from a spinal cord stimulator device visualized. Other: Degenerative changes of both shoulder joints. RAD/Chest 1 View (Portable) IMPRESSION: Mild degree of vascular congestion and CHF with bibasilar atelectasis. Reading Location: [facility]
[2025-01-14] MEDS: Acetaminophen 500 MG Tablet 1000 MG PO (08:58)
[2025-01-14] MEDS: 0.9% Normal Saline (1000mL) 1,000 ML 250 ML IV ×2 (08:58→13:49)
[2025-01-14 09:15] LABS: Allen Test Positive; Base Excess 4 mmol/L (-2 to +2); Bicarbonate 29.1 mmol/L (22-26); Blood Gas Specimen Type ART; Mode BiLevel; O2 Delivery Device BiPAP; PEEP 8; PO2 129 mmHG (75-100); RR 12; SITE R Radial; SO2 99 % (95-99); Total Carbon Dioxide 31 mmol/L; pCO2 50.6 mmHg (35-45); pH 7.37 (7.35-7.45)
[2025-01-14] MEDS: Ipratropium/Albuterol Sulfate 3 ML AMPUL.NEB INHALATION ×2 (09:50→20:00)
[2025-01-14 10:23] LABS: Absolute Lymphocyte Count 0.69 X10^3/uL (0.83-4.51); Absolute Neutrophil Count 10.3 X10^3/uL (2.0-7.7); Basophil# 0.04 X10^3/uL; Basophil% 0.3 % (0-1); Eosinophils% 0.8 % (0-5); Hematocrit 37.1 % (37-47); Hemoglobin 12.2 g/dL (12.0-15.0); Lymphocyte # 0.69 X10^3/ul (0.83-4.51); Lymphocyte % 5.9 % (19-41); Mean Corp Hgb Conc 32.9 g/dL (32-36); Mean Corpuscular Hgb 28.5 pg (27.0-32.0); Mean Corpuscular Volume 86.7 fL (81-99); Mean Platelet Vol. 10.5 fl (6.2-12.0); Monocyte# 0.61 X10^3/uL; Monocyte% 5.2 % (0-10); NRBC Flagged by Analyzer 0 % (0-5); Neutrophil # 10.29 X10^3/uL (2.7-7.7); Neutrophil % 87.3 % (47-70); Platelet Count 259 K/mm3 (150-450); RBC Distribution Width CV 15.3 % (11.6-14.6); RBC Distribution Width SD 48.4 fl (35.1-43.9); Red Blood Count 4.28 M/mm3 (4.2-5.4); White Blood Count 11.8 K/mm3 (4.4-11.0)
[2025-01-14 10:31] LABS: Prothrombin Time (Protime)PT. 13.7 SECONDS (11.7-14.9)
[2025-01-14 10:32] LABS: Partial Thromboplast Time 26.3 Seconds (24.1-36.2)
[2025-01-14 10:43] LABS: Pro- Brain NATRIURETIC PEPTIDE 237 pg/mL (<=900); Troponin T High Sensitivity 8 ng/L (<=14)
[2025-01-14 10:45] LABS: ALB/GLOB Ratio 1.2 RATIO (0.9-2.4); AST(SGOT) 21 U/L (<=31); Alanine Aminotransfer ALT/SGPT 17 U/L (<=34); Albumin, Serum 3.8 g/dL (3.4-4.8); Alkaline Phosphatase 141 U/L (35-104); Anion Gap 11 (5-15); BUN 13 mg/dL (4-19); BUN/Creat Ratio 17.1 RATIO (10-20); Calcium,Total 9.1 mg/dL (7.6-11.0); Carbon Dioxide 24.7 mmol/L (21.0-32.0); Chloride 102 mmol/L (98-108); Creatinine, Serum 0.73 mg/dL (0.70-1.20); EST Glomerular Filtration Rate 91 (>60); Estimated Creatinine Clearance 111.14 ml/min (50-250); Globulin 3.3 g/dL (2.2-4.2); Glucose 124 mg/dL (70-99); Potassium 4.7 mmol/L (3.3-5.1); Protein, Total 7.2 g/dL (5.9-8.4); Sodium Level 138 mmol/L (133-145); Total Bilirubin 0.36 mg/dL (0.00-1.30)
[2025-01-14 10:46] LABS: Lactic Acid 1.3 mmol/L (0.0-2.0)
[2025-01-14 10:58] LABS: Bacteria 0 SEEN /hpf (None Seen); White Blood Cells 0 SEEN /hpf (0-5)
[2025-01-14 11:02] LABS: Color, Urine Yellow (Yellow); Glucose, Dipstick Normal (Normal); Ketone-Dipstick Negative (Negative); Leukocyte Esterase-Dipstick Negative /ul (Negative); Nitrite-Dipstick Negative (Negative); Occult Blood-Urine Negative /ul (Negative); Protein-Dipstick 15 mg/dl (Negative); Urine Bilirubin Dipstick Negative (Negative); Urine Clarity Clear (Clear); Urine Urobilinogen Normal (Normal)
--- NOTE | 2025-01-14 11:05 | CT_ITS ---
PROCEDURE: CTA CHEST W/WO CONTRAST 01/14/2025 REASON FOR EXAM: PULMONARY EMBOLISM TECHNIQUE: CTA chest was performed with IV contrast. Coronal and sagittal reformats and MIP reconstructions were generated. PATIENT PREPARATION: Per protocol CONTRAST: Isovue 370 VOLUME: 100 mL One or more dose reduction techniques were used (e.g., Automated exposure control, adjustment of the mA and/or kV according to patient size, use of iterative reconstruction technique). RADIATION DOSE SUMMARY: CTDlvol: 11.87+ 15.83 mGy DLP: 568.35 mGycm COMPARISON: No prior CT or CTA chest FINDINGS: Exam limited by generalized soft tissue attenuation and mild motion. Additionally, opacification of the pulmonary arterial tree is borderline suboptimal with opacification of the main pulmonary artery to 245 Hounsfield units with progressively decreasing opacification of peripheral branches, limiting sensitivity for peripheral pulmonary embolus. Heart/pericardium: Trace aortic annular calcification. Aorta: Unremarkable. Pulmonary arteries: Normal in caliber. No central or definite pulmonary embolism is identified allowing for the above. Lymph nodes: Unremarkable. Lungs/pleura: Eventrated RIGHT hemidiaphragm. LEFT lower lobe irregular consolidation with hypoenhancement. Mild vaguely nodular airspace disease also present in the LEFT upper lobe and superior segment of the RIGHT lower lobe to a lesser degree. RIGHT basilar airspace disease is compatible with atelectasis/scarring.. Airways: Unremarkable. Chest wall: Unremarkable. Upper abdomen: Mild splenomegaly, 13.3 cm.. Musculoskeletal: Demineralization. Multilevel spondylosis. Spinal stimulator. Mild scoliosis. Severe degenerative changes of the LEFT shoulder. Mild/moderate degenerative changes of the RIGHT shoulder. Suspected old anterior RIGHT rib fracture. CT/CTA Chest W/WO Contrast IMPRESSION: 1. Limited sensitivity for peripheral pulmonary embolism on a technical basis. No central or definite pulmonary embolus identified. 2. Findings are compatible with multifocal LEFT lower lobe predominant pneumoni a. Given nodular components, recommend CT chest in 3 months to document resolution. 3. Mild splenomegaly. 4. Additional description as above. Reading Location: [id number]
[2025-01-14 11:16] LABS: Mucous, Urine 1+ /hpf (<or=2+); Red Blood Cells-Urine 0-5 SEEN /hpf (0-5); Squamous Epithelial Cells - UA 0-5 SEEN /hpf (5-10)
[2025-01-14 11:17] LABS: Fine Granular Cast- Urine 0-5 SEEN /lpf (0-5); Hyaline Cast 5-10 SEEN /lpf (0-5)
[2025-01-14] MEDS: levoFLOXacin IV 750 MG/150 ML BAG 100 MG IV (11:51)
--- NOTE | 2025-01-14 12:16 | HP.PCM.HOS_ITS ---
HPI - General General Date of Admission: 01/14/25 HPI Narrative SAULO PUENTES, is a 64 F who presents to the hospital with the increased shortness of breath and found to be in respiratory failure necessitating BiPAP. She said that she felt fine last evening and then this morning she was getting into a chair where she felt suddenly short of breath. She was found to have a fever of 101, but denies any chills and no sick contacts though she does reside at [facility] in [place]. Initially there is concern for possible PE so CTA of the chest was obtained which demonstrated left lower lobe pneumonia and no definite PE. Denies any chest pain. She does wear BiPAP at baseline but only at night and today she was hypoxic and at the skilled nursing and was transported to the ER. 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 Pulmonary embolism Current use of long term care phlebotomist anticoagulation Chronic wound of extremity Anemia Necrotizing fasciitis Below knee amputation Depression Rheumatoid arthritis GERD (gastroesophageal reflux disease) Former smoker BiPAP (biphasic positive airway pressure) dependence Sleep apnea Hypertension Failure of outpatient treatment Anxiety and depression Bronchospasm Asthma exacerbation Family history of diabetes mellitus (DM) Restless leg syndrome Obstructive sleep apnea Morbid obesity Fibromyalgia Reflex sympathetic dystrophy Benign essential HTN Asthma Anxiety Home Medications ?Medication ?Instructions ?Recorded ?Last Taken ?Type albuterol sulfate 90 mcg/actuation 2 puff inhalation Q 6H PRN 05/11/21 08/24/22 Rx aerosol inhaler shortness of breath or wheez ing #8.5 grams valsartan 320 mg tablet 320 mg PO DAILY heart 08/31/22 History omeprazole 40 mg capsule,delayed 40 mg PO DAILY gerd 0 06/15/21 08/31/22 History release pramipexole 1.5 mg tablet 3 mg PO QHS RESTLESS LEG SYN DROME 06/15/21 08/30/22 History amitriptyline 100 mg tablet 100 mg PO QHS PHANTOM 12/0 10/2208/30/22 History PAIN/DEPRESSION cholecalciferol (vitamin D3) 1,250 1,250 mcg PO MO SUP PLEMENT 08/31/22 08/28/22 History mcg (50,000 unit) capsule metoprolol succinate 50 mg 50 mg PO DAILY blood pressu re 10/16/22 Unknown History tablet,extended release 24 hr montelukast 10 mg tablet 10 mg PO DAILY asthma Unknown History albuterol sulfate 2.5 mg/3 mL 1.25 mg inhalation Q4H P RN 07/21/23 Unknown History (0.083 %) solution for nebulization sob/wheezing atorvastatin 10 mg tablet 10 mg PO QHS cholesterol Unknown History docusate sodium 100 mg capsule 100 mg PO DAILY constip ation 07/21/23 Unknown History (Colace) fluticasone 250 mcg-salmeterol 50 1 inh inhalation BID copd 07/21/23 Unknown History mcg/dose blistr powdr for inhalation (Advair Diskus) fluticasone propionate 50 1 spray intranasal DAILY all ergies 07/21/23 Unknown History mcg/actuation nasal spray,suspension (Flonase Allergy Relief) gabapentin 300 mg capsule 300 mg PO DAILY phantom pain 07/21/23 Unknown History loratadine 10 mg tablet (Allergy 10 mg PO DAILY allerg ies 07/21/23 Unknown History Relief (loratadine)) melatonin 5 mg tablet 5 mg PO QHS sleep 07/21/23 U nknown History multivitamin (Daily Multi-Vitamin 1 tab PO DAILY suppl ement 07/21/23 Unknown History tablet) metformin 850 mg tablet 850 mg PO BID DIABETES 05/06 Unknown History sertraline 50 mg tablet 50 mg PO DAILY DEPRESSION Unknown History acetaminophen 500 mg tablet 1,000 mg PO Q8H PRN pain 0 05/08/24 Unknown History (Acetaminophen Extra Strength) hydroxyzine pamoate 25 mg capsule 25 mg PO Q6H PRN anx iety 05/08/24 Unknown History (Vistaril) bisacodyl 10 mg rectal suppository 10 mg ND QHS PRN co nstipation 01/14/25 Unknown History buprenorphine HCl 300 mcg buccal 300 mcg buccal BID Unknown History film (Belbuca) diphenhydramine HCl 25 mg tablet 25 mg PO Q4H PRN diann rgic reaction 01/14/25 Unknown History (Benadryl Allergy) gabapentin 300 mg capsule 600 mg PO QHS FOR PHANTOM PA IN 01/14/25 Unknown History guaifenesin 100 mg/5 mL oral 200 mg PO Q6H PRN cough 0 01/14/25 Unknown History liquid (Adult Tussin Chest Congestion) guaifenesin 600 mg tablet, 600 mg PO BID PRN congestio n 01/14/25 Unknown History extended release 12 hr (Mucinex) ibuprofen 200 mg tablet (Advil) 400 mg PO Q12H PRN arjun n 01/14/25 Unknown History lidocaine 5 % topical patch 1 patch topical QHS PAIN 0 01/14/25 Unknown History (DermacinRx Lidocan) magnesium hydroxide 400 mg/5 mL 2,400 mg PO DAILY PRN constipation 01/14/25 Unknown History oral suspension (Dulcolax (magnesium hydroxide)) mineral oil (Fleet Mineral Oil 118 ml ND DAILY PRN con stipation 01/14/25 Unknown History enema) polyethylene glycol 3350 17 17 g PO DAILY PRN constipa tion 01/14/25 Unknown History gram/dose oral powder (ClearLax) potassium chloride 20 mEq/15 mL 6.6667 meq PO BID SUPP LEMENT 01/14/25 Unknown History oral liquid saliva substitute combo no.9 15 ml mucous membrane MARIPOSA LY DRY 01/14/25 Unknown History (Biotene Dry Mouth Oral Rinse MOUTH mouthwash) Allergy/AdvReac Type Severity Reaction Status Date / Time losartan (From Cozaar) Allergy Mild Rash Verified 12/29/24 12:52 cefepime Allergy Unknown NEEDS Verified 12/29/24 12:52 FOLLOW-UP clonazepam Allergy Unknown NEEDS Verified 12/29/24 12:52 FOLLOW-UP hydromorphone Allergy Unknown NEEDS Verified 12/29/24 12:52 FOLLOW-UP ketamine Allergy Unknown NEEDS Verified 12/29/24 12:52 FOLLOW-UP lisinopril Allergy Unknown NEEDS Verified 12/29/24 12:52 FOLLOW-UP vancomycin Allergy Rash Verified 12/29/24 12:52 amlodipine AdvReac Swelling Verified 12/29/24 12:52 Family History Mother Hypertension Cancer Pancreatic Diabetes Father Cancer pancreatic Brother Diabetes Asthma Hypertension Grandfather Diabetes Surgical History Hx of BKA Hx of breast reduction, elective Chronic knee pain after total replacement of left knee joint H/O foot surgery History of hysterectomy History of tonsillectomy Social History household members: significant other Smoking Status: Former smoker alcohol intake: never substance use type: does not use ROS Constitutional Constitutional: Reports fever(s); Denies chills, fatigue or malaise Eyes Eyes: Denies blurry vision ENT HEENT: Denies headache(s) or nasal discharge Cardiovascular Cardiovascular: Denies chest pain, dyspnea on exertion or syncope Respiratory/Chest Respiratory/Chest: Reports shortness of breath at rest and shortness of breath with exertion; Denies cough Gastrointestinal Gastrointestinal: Denies constipation, diarrhea, nausea or vomiting Genitourinary Genitourinary: Denies dysuria Neurologic Neurologic: Denies focal weakness, numbness or tremor(s) Psychiatric Psychiatric: Denies anxiety or depression Vital Signs Vital Signs Vital Signs: 01/14/25 08:18 01/14/25 08:23 01/14/25 08:24 Temperature 101 F H 101 F H Temperature Source Oral Oral Pulse Rate 108 H 108 H Respiratory Rate 25 H 24 H Respiratory Effort Short of Breath Labored Respiratory Depth Shallow Respiratory Pattern Tachypnea Blood Pressure 164/120 H 164/120 H Blood Pressure Mean 134 134 Pulse Ox 98 95 Oxygen Delivery Method Bi-pap Bi-pap Bi-pap Fraction of Inspired Oxygen (FIO2) 01/14/25 08:26 01/14/25 08:26 01/14/25 08:28 Temperature Temperature Source Pulse Rate 98 Respiratory Rate 34 H Respiratory Effort Short of Breath Labored Respiratory Depth Respiratory Pattern Normal Blood Pressure Blood Pressure Mean Pulse Ox 95 Oxygen Delivery Method Bi-pap Fraction of Inspired Oxygen (FIO2) 60 01/14/25 09:17 01/14/25 09:50 01/14/25 09:57 Temperature Temperature Source Pulse Rate 101 H 104 H 104 H Respiratory Rate 20 H 18 18 Respiratory Effort Respiratory Depth Respiratory Pattern Normal Normal Blood Pressure 210/169 H Blood Pressure Mean 182 Pulse Ox 99 96 Oxygen Delivery Method Bi-pap Fraction of Inspired Oxygen (FIO2) 50 01/14/25 10:00 01/14/25 11:00 01/14/25 11:56 Temperature 101 F H Temperature Source Pulse Rate 104 H 98 98 Respiratory Rate 13 19 H 19 H Respiratory Effort Respiratory Depth Respiratory Pattern Blood Pressure 210/169 H Blood Pressure Mean 182 Pulse Ox 99 98 98 Oxygen Delivery Method Bi-pap Bi-pap Fraction of Inspired Oxygen (FIO2) 01/14/25 12:00 Temperature Temperature Source Pulse Rate 86 Respiratory Rate 16 Respiratory Effort Respiratory Depth Respiratory Pattern Blood Pressure 123/83 H Blood Pressure Mean 96 Pulse Ox 98 Oxygen Delivery Method Bi-pap Fraction of Inspired Oxygen (FIO2) Weight Weight: 357 lb 5.909 oz Body Mass Index (BMI) 57.6 Physical Exam Narrative General: Alert, Oriented x3, Cooperative, No apparent distress HEENT: Atraumatic, PERRLA, EOMI, Normocephalic Oral: Moist Mucosa Neck: Supple, No JVD Lungs: Diminished, Normal air movement, No rhonchi, No wheeze, No rales Cardiovascular: Regular rate, Regular Rhythm, Normal S1, Normal S2, No murmurs Abdomen: Soft, Non Tender, Non-Distended, No Hepato-splenomegaly Extremities: No edema, Capillary Refill Less than 3 Seconds Skin: No rashes, No breakdown Musculoskeletal: Bilateral BKA Neurological: No focal neurological deficits, Motor Exam 5/5 strength throughout, Sensory exam intact to light touch and pain Psych/Mental Status: Normal Affect, Appropriate Results Lab / Micro Data 01/14/25 10:11 01/14/25 10:11 Labs: Laboratory Results - last 24 hr 01/14/25 10:11: WBC 11.8 H, RBC 4.28, Hgb 12.2, Hct 37.1, MCV 86.7, MCH 28.5, MCHC 32.9, RDW Std Deviation 48.4 H, RDW Coeff of Naga 15.3 H, Plt Count 259, MPV 10.5, Immature Gran % (Auto) 0.500, Neut % (Auto) 87.3 H, Lymph % (Auto) 5.9 L, [place] % (Auto) 5.2, Eos % (Auto) 0.8, Baso % (Auto) 0.3, Absolute Neuts (auto) 10.3 H, Absolute Lymphs (auto) 0.69 L, Nucleated RBC % 0, PT 13.7, INR 1.0, APTT 26.3, Sodium 138, Potassium 4.7, Chloride 102, Carbon Dioxide 24.7, Anion Gap 11, BUN 13, Creatinine 0.73, Estim Creat Clear Calc 111.14, Est GFR (MDRD) Non- Af 91, BUN/Creatinine Ratio 17.1, Glucose 124 H, Lactic Acid 1.3, Calcium 9.1, Total Bilirubin 0.36, AST 21, ALT 17, Alkaline Phosphatase 141 H, Troponin T High Sens 8, NT pro BNP II 237, Total Protein 7.2, Albumin 3.8, Globulin 3.3, Albumin/Globulin Ratio 1.2 01/14/25 10:45: Urine Color Yellow, Urine Clarity Clear, Urine pH 5.0, Ur Specific [place] 1.020, Urine Protein 15 H, Urine Glucose (UA) Normal, Urine Ketones Negative, Urine Occult Blood Negative, Urine Nitrite Negative, Urine Bilirubin Negative, Urine Urobilinogen Normal, Ur Leukocyte Esterase Negative, Urine RBC 0-5 SEEN, Urine WBC 0 SEEN, Ur Squamous Epith Cells 0-5 SEEN, Urine Bacteria 0 SEEN, Hyaline Casts 5-10 SEEN, Fine Granular Casts 0-5 SEEN, Urine Mucus 1+ Micro: Microbiology 01/14/25 08:31 Mucosa - Nose SARS-CoV-2, Influenza & RSV (PCR) - Final ABG Data ABG results: ABG 01/14/25 09:11 Specimen Type ART Sample Site R Radial pH 7.37 Bicarbonate Actual 29.1 H Total CO2 31 Base Excess 4 H O2 Saturation 99 O2 % 60.0 ABG pCO2 50.6 H ABG pO2 129 H Bridger Test Positive Respiration Rate 12 O2 Delivery Device BiPAP Vent Mode BiLevel POC PEEP 8 Imaging Radiology Impression Chest X-Ray 01/14/25 08:55 IMPRESSION: Mild degree of vascular congestion and CHF with bibasilar atelectasis. Reading Location: [id number] Chest CTA 01/14/25 11:05 IMPRESSION: 1. Limited sensitivity for peripheral pulmonary embolism on a technical basis. No central or definite pulmonary embolus identified. 2. Findings are compatible with multifocal LEFT lower lobe predominant pneumonia. Given nodular components, recommend CT chest in 3 months to document resolution. 3. Mild splenomegaly. 4. Additional description as above. Reading Location: [id number] Assessment & Plan Assessment/Plan (1) Acute hypoxemic respiratory failure: (2) Pneumonia: PLAN: Plan 1. Acute hypoxic respiratory failure secondary to left lower lobe pneumonia ? On arrival she was tachypneic with an increased work of breathing, at the time of my exam she has been on BiPAP so the symptoms have resolved ? She does not wear oxygen during the day and is only supposed to be wearing BiPAP at night therefore this is a significant change in her respiratory status ? Continue with Levaquin ? Sputum cultures pending ? Will continue with gentle IV fluids while she is on BiPAP ? She is not septic 2. Essential HTN/HLD/morbid obesity ? Recommend weight loss and dietary modifications, BMI is 57.7 ? Continue with her home blood pressure medications ? Continue with her cholesterol medications ? Will monitor make adjustments as necessary 3. DM2 ? Hold metformin ? Sliding scale insulin ? Accu-Cheks ACHS ? Will monitor make adjustments as necessary 4. COPD/asthma with FAY ? Continue with BiPAP ? No evidence of wheezing on exam, will hold off steroids given her diabetes and her infection ? Continue with her inhalers 5. Anxiety/depression ? Stable ? Continue with her home medications DVT: Lovenox 75 minutes was spent on direct patient care, including documentation as well as chart review and collaboration with colleagues Charges/Coding Visit Charges Inpatient E&M: 31052 Init Hosp L3
[2025-01-14 14:48] LABS: Troponin T High Sensitivity 8 ng/L (<=14)
[2025-01-14 15:13] LABS: Bedside Glucose 94 mg/dL (74-106)
[2025-01-14 16:24] LABS: Troponin T High Sens 2 HR 7 ng/L (<=14)
[2025-01-14] MEDS: 0.9% Normal Saline (1000mL) 1,000 ML 100 ML IV (16:33)
[2025-01-14 16:47] LABS: Bedside Glucose 98 mg/dL (74-106)
[2025-01-14 18:35] LABS: Troponin T High Sens 4 HR < 6 ng/L (<=14)
[2025-01-14] MEDS: Budesonide Respules 0.5 MG/2 ML AMPUL.NEB. INHALATION (20:07)
[2025-01-14] MEDS: Lidocaine 5% Patch 1 PATCH TOPICAL (22:05)
[2025-01-14] MEDS: Amitriptyline 100 MG Tablet PO (22:06)
[2025-01-14] MEDS: Atorvastatin Calcium 10 MG Tablet PO (22:06)
[2025-01-14] MEDS: Gabapentin 300 MG Capsule 600 MG PO (22:06)
[2025-01-14] MEDS: Pramipexole Di-HCl 1 MG Tablet PO (22:06)
[2025-01-14 22:59] LABS: Bedside Glucose 123 mg/dL (74-106)
[2025-01-15] VITALS (11 sets, daily range): BP systolic 103–111; BP diastolic 56–64; PULSE 68–95; RESP 12–20; TEMP 36.6–36.7; O2SAT 94–97
[2025-01-15] MEDS: 0.9% Normal Saline (1000mL) 1,000 ML 100 ML IV (03:11)
[2025-01-15] MEDS: Pramipexole Di-HCl 1 MG Tablet PO ×3 (05:55→22:42)
[2025-01-15 06:48] LABS: Absolute Lymphocyte Count 1.26 X10^3/uL (0.83-4.51); Absolute Neutrophil Count 7.6 X10^3/uL (2.0-7.7); Basophil# 0.03 X10^3/uL; Basophil% 0.3 % (0-1); Eosinophil# 0.14 X10^3/uL; Eosinophils% 1.4 % (0-5); Hematocrit 33.1 % (37-47); Hemoglobin 10.8 g/dL (12.0-15.0); Lymphocyte # 1.26 X10^3/ul (0.83-4.51); Lymphocyte % 12.8 % (19-41); Mean Corp Hgb Conc 32.6 g/dL (32-36); Mean Corpuscular Hgb 28.5 pg (27.0-32.0); Mean Corpuscular Volume 87.3 fL (81-99); Mean Platelet Vol. 10.4 fl (6.2-12.0); Monocyte# 0.82 X10^3/uL; Monocyte% 8.3 % (0-10); NRBC Flagged by Analyzer 0 % (0-5); Neutrophil # 7.56 X10^3/uL (2.7-7.7); Neutrophil % 76.8 % (47-70); Platelet Count 219 K/mm3 (150-450); RBC Distribution Width CV 15.4 % (11.6-14.6); RBC Distribution Width SD 49.7 fl (35.1-43.9); Red Blood Count 3.79 M/mm3 (4.2-5.4); White Blood Count 9.9 K/mm3 (4.4-11.0)
[2025-01-15] MEDS: Acetaminophen 500 MG Tablet 1000 MG PO (06:49)
[2025-01-15 06:55] LABS: Bedside Glucose 93 mg/dL (74-106)
[2025-01-15 07:33] LABS: Anion Gap 9 (5-15); BUN 9 mg/dL (4-19); Calcium,Total 8.5 mg/dL (7.6-11.0); Carbon Dioxide 24.6 mmol/L (21.0-32.0); Chloride 104 mmol/L (98-108); Creatinine, Serum 0.52 mg/dL (0.70-1.20); EST Glomerular Filtration Rate 103 (>60); Estimated Creatinine Clearance 100.21 ml/min (50-250); Glucose 96 mg/dL (70-99); Potassium 3.9 mmol/L (3.3-5.1); Sodium Level 138 mmol/L (133-145)
[2025-01-15] MEDS: Losartan Potassium 100 MG Tablet PO (09:32)
[2025-01-15] MEDS: Pantoprazole Sodium 40 MG Tablet PO (09:32)
[2025-01-15] MEDS: Sertraline 50 MG Tablet PO (09:32)
[2025-01-15] MEDS: Montelukast 10 MG Tablet PO (09:32)
[2025-01-15] MEDS: Metoprolol(XL)Succ 50 MG Tablet PO (09:32)
[2025-01-15] MEDS: Gabapentin 300 MG Capsule PO (09:32)
[2025-01-15] MEDS: Docusate Sodium 100 MG Capsule PO (09:32)
[2025-01-15] MEDS: Enoxaparin 40 MG/0.4 ML Syringe SC (09:33)
[2025-01-15] MEDS: levoFLOXacin IV 750 MG/150 ML BAG 100 MG IV (09:33)
[2025-01-15] MEDS: BUPRENORPHINE HCL 300 MCG BUCCAL ×2 (09:33→22:54)
--- NOTE | 2025-01-15 09:38 | CASEMGMT ---
Patient is from [facility]. SW met with patient and confirmed her plan is to return to [facility] at discharge. Unique Sofia SUPERANNUATION CLERK RANDALL
[2025-01-15] MEDS: Menthol/Lanolin/Calamine/Znox 113 GM Tube 1 APPLIC TOPICAL ×2 (09:42→22:39)
--- NOTE | 2025-01-15 09:48 | CASEMGMT ---
Addendum entered by Brandy Givens 01/15/25 10:03: Precert is not needed. Brandy Givens DC Planning Asst. Original Note: Discharge Planning Updates sent to [facility] with note asking if precert will be needed. Awaiting response. Brandy Givens DC Planning Asst.
--- NOTE | 2025-01-15 11:00 | PCM.PN.HOSP ---
Subjective Subjective No issues overnight, currently off of BiPAP on 8 L high flow. Continue with antibiotics and breathing treatments Objective Data Objective Data Vital Signs: Vital Signs Temp Pulse Resp BP Pulse Ox O2 Del Method O2 Flow Rate 98.1 F 78 18 103/61 96 High Flow 8 01/15/25 09:24 01/15/25 09:32 01/15/25 09:24 01/15/25 09:24 01/15/25 09:24 01/15/25 09:24 01/15/25 09:24 FiO2 40 01/15/25 02:35 Oxygen Flow Rate (L/min) 8 Oxygen Delivery Method High Flow Weight: 348 lb 8.813 oz Body Mass Index (BMI) 81.0 Intake & Output: Intake and Output for Last 24 Hours 01/14/25 01/15/25 01/16/25 03:59 03:59 03:59 Intake Total 3069.17 / 3069.17 Output Total 350 / 350 Balance 2719.17 / 2719.17 Lab / Micro Data 01/15/25 06:16 01/15/25 06:16 Labs: Laboratory Results - last 24 hr 01/14/25 10:45: Urine Color Yellow, Urine Clarity Clear, Urine pH 5.0, Ur Specific [place] 1.020, Urine Protein 15 H, Urine Glucose (UA) Normal, Urine Ketones Negative, Urine Occult Blood Negative, Urine Nitrite Negative, Urine Bilirubin Negative, Urine Urobilinogen Normal, Ur Leukocyte Esterase Negative, Urine RBC 0-5 SEEN, Urine WBC 0 SEEN, Ur Squamous Epith Cells 0-5 SEEN, Urine Bacteria 0 SEEN, Hyaline Casts 5-10 SEEN, Fine Granular Casts 0-5 SEEN, Urine Mucus 1+ 01/14/25 12:43: Troponin T Hi Sens 4Hr Cancelled 01/14/25 13:55: Troponin T High Sens 8 01/14/25 14:43: POC Glucose 94 01/14/25 15:50: Troponin T Hi Sens 2 Hr 7 01/14/25 16:29: POC Glucose 98 01/14/25 17:59: Troponin T Hi Sens 4Hr < 6 01/14/25 21:54: POC Glucose 123 H 01/15/25 06:16: WBC 9.9, RBC 3.79 L, Hgb 10.8 L, Hct 33.1 L, MCV 87.3, MCH 28.5, MCHC 32.6, RDW Std Deviation 49.7 H, RDW Coeff of Naga 15.4 H, Plt Count 219, MPV 10.4, Immature Gran % (Auto) 0.400, Neut % (Auto) 76.8 H, Lymph % (Auto) 12.8 L, [place] % (Auto) 8.3, Eos % (Auto) 1.4, Baso % (Auto) 0.3, Absolute Neuts (auto) 7.6, Absolute Lymphs (auto) 1.26, Nucleated RBC % 0, Sodium 138, Potassium 3.9, Chloride 104, Carbon Dioxide 24.6, Anion Gap 9, BUN 9, Creatinine 0.52 L, Estim Creat Clear Calc 100.21, Est GFR (MDRD) Non-Af 103, BUN/Creatinine Ratio 17.0, Glucose 96, Calcium 8.5 01/15/25 06:32: POC Glucose 93 Micro: Microbiology 01/14/25 10:45 Urine, Random Legionella Antigen - Final 01/14/25 10:45 Urine, Random Streptococcus pneumoniae Antigen (M - Final 01/14/25 08:31 Mucosa - Nose SARS-CoV-2, Influenza & RSV (PCR) - Final Radiography Diagnostic Testing: Radiology Impression Chest CTA 01/14/25 11:05 IMPRESSION: 1. Limited sensitivity for peripheral pulmonary embolism on a technical basis. No central or definite pulmonary embolus identified. 2. Findings are compatible with multifocal LEFT lower lobe predominant pneumonia. Given nodular components, recommend CT chest in 3 months to document resolution. 3. Mild splenomegaly. 4. Additional description as above. Reading Location: [facility] Physical Exam Narrative General: Alert, Oriented x3, Cooperative, No apparent distress HEENT: Atraumatic, PERRLA, EOMI, Normocephalic Oral: Moist Mucosa Neck: Supple, No JVD Lungs: Diminished, Normal air movement, No rhonchi, No wheeze, No rales Cardiovascular: Regular rate, Regular Rhythm, Normal S1, Normal S2, No murmurs Abdomen: Soft, Non Tender, Non-Distended, No Hepato-splenomegaly Extremities: No edema, Capillary Refill Less than 3 Seconds Skin: No rashes, No breakdown Musculoskeletal: Bilateral BKA Neurological: No focal neurological deficits, Motor Exam 5/5 strength throughout, Sensory exam intact to light touch and pain Psych/Mental Status: Normal Affect, Appropriate Assessment & Plan Assessment/Plan (1) Acute hypoxemic respiratory failure: (2) Pneumonia: PLAN: Plan 1. Acute hypoxic respiratory failure secondary to left lower lobe pneumonia ? On arrival she was tachypneic with an increased work of breathing, at the time of my exam she has been on BiPAP so the symptoms have resolved ? Can resume wearing her BiPAP at night we will continue with oxygen during the day. Wean as able ? Continue with Levaquin ? Sputum cultures pending ? Will stop IV fluids now that she is on nasal cannula ? She is not septic 2. Essential HTN/HLD/morbid obesity ? Recommend weight loss and dietary modifications, BMI is 57.7 ? Continue with her home blood pressure medications ? Continue with her cholesterol medications ? Will monitor make adjustments as necessary 3. DM2 ? Hold metformin ? Sliding scale insulin ? Accu-Cheks ACHS ? Will monitor make adjustments as necessary 4. COPD/asthma with FAY ? Continue with BiPAP at night ? No evidence of wheezing on exam, will hold off steroids given her diabetes and her infection ? Continue with her inhalers 5. Anxiety/depression ? Stable ? Continue with her home medications DVT: Lovenox Charges/Coding Visit Charges Inpatient E&M: 70774 Subs Hosp L2
[2025-01-15] MEDS: Ipratropium/Albuterol Sulfate 3 ML AMPUL.NEB INHALATION ×2 (11:05→15:15)
[2025-01-15 12:31] LABS: Bedside Glucose 101 mg/dL (74-106)
--- NOTE | 2025-01-15 13:34 | CHAPLAIN ---
Type of Pastoral Visit _x__ Initial Visit ___ Follow-up Visit ___ On-call Visit ___ General Patient Visit ___ Spiritual Assessment ___ Family Conference ___ Bereavement ___ Rapid Response ___ Code Blue ___ Other (describe below) Pastoral Care Referral From _x__ Patient ___ Family ___ Nurse ___ Physician ___ Manager Division ___ Milk Drier ___ Other (describe below) Sacrament/Intervention _x__ Active listening ___ Anointing ___ Confucianism ___ Bereavement ___ Communion _x__ Christine exploration ___ _x__ Life review _x__ Prayer ___ Reconciliation ___ Sacrament of Sick _x__ Supportive presence ___ Wedding ___ Other (describe below) Pastoral Comments patient has been seen before and 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
[2025-01-15 17:18] LABS: Bedside Glucose 114 mg/dL (74-106)
[2025-01-15] MEDS: Budesonide Respules 0.5 MG/2 ML AMPUL.NEB. INHALATION (19:41)
[2025-01-15] MEDS: Albuterol 2.5 MG/3 ML VIAL.NEB. INHALATION (19:41)
[2025-01-15] MEDS: Lidocaine 5% Patch 1 PATCH TOPICAL (22:41)
[2025-01-15] MEDS: Amitriptyline 100 MG Tablet PO (22:41)
[2025-01-15] MEDS: Atorvastatin Calcium 10 MG Tablet PO (22:42)
[2025-01-15 22:46] LABS: Bedside Glucose 133 mg/dL (74-106)
[2025-01-15] MEDS: Gabapentin 300 MG Capsule 600 MG PO (23:19)
[2025-01-16] VITALS (13 sets, daily range): BP systolic 101–123; BP diastolic 52–69; PULSE 61–83; RESP 12–19; TEMP 36.2–36.9; O2SAT 88–97
[2025-01-16] MEDS: Acetaminophen 500 MG Tablet 1000 MG PO (01:36)
[2025-01-16 06:25] LABS: Absolute Lymphocyte Count 1.29 X10^3/uL (0.83-4.51); Absolute Neutrophil Count 4.3 X10^3/uL (2.0-7.7); Basophil# 0.04 X10^3/uL; Basophil% 0.6 % (0-1); Eosinophil# 0.21 X10^3/uL; Eosinophils% 3.2 % (0-5); Hematocrit 31.8 % (37-47); Hemoglobin 10.3 g/dL (12.0-15.0); Lymphocyte # 1.29 X10^3/ul (0.83-4.51); Lymphocyte % 19.5 % (19-41); Mean Corp Hgb Conc 32.4 g/dL (32-36); Mean Corpuscular Hgb 28.5 pg (27.0-32.0); Mean Corpuscular Volume 87.8 fL (81-99); Mean Platelet Vol. 10.8 fl (6.2-12.0); Monocyte# 0.74 X10^3/uL; Monocyte% 11.2 % (0-10); NRBC Flagged by Analyzer 0 % (0-5); Neutrophil # 4.26 X10^3/uL (2.7-7.7); Neutrophil % 64.6 % (47-70); Platelet Count 229 K/mm3 (150-450); RBC Distribution Width CV 15.4 % (11.6-14.6); RBC Distribution Width SD 49.3 fl (35.1-43.9); Red Blood Count 3.62 M/mm3 (4.2-5.4); White Blood Count 6.6 K/mm3 (4.4-11.0)
[2025-01-16] MEDS: Pramipexole Di-HCl 1 MG Tablet PO ×3 (06:55→21:14)
[2025-01-16 06:58] LABS: Anion Gap 9 (5-15); BUN 8 mg/dL (4-19); BUN/Creat Ratio 14.2 RATIO (10-20); Calcium,Total 8.5 mg/dL (7.6-11.0); Carbon Dioxide 24.7 mmol/L (21.0-32.0); Chloride 105 mmol/L (98-108); Creatinine, Serum 0.56 mg/dL (0.70-1.20); EST Glomerular Filtration Rate 101 (>60); Estimated Creatinine Clearance 109.37 ml/min (50-250); Glucose 104 mg/dL (70-99); Potassium 3.8 mmol/L (3.3-5.1); Sodium Level 138 mmol/L (133-145)
[2025-01-16] MEDS: Budesonide Respules 0.5 MG/2 ML AMPUL.NEB. INHALATION ×2 (07:24→19:20)
[2025-01-16] MEDS: Ipratropium/Albuterol Sulfate 3 ML AMPUL.NEB INHALATION ×4 (07:24→19:20)
[2025-01-16] MEDS: Menthol/Lanolin/Calamine/Znox 113 GM Tube 1 APPLIC TOPICAL ×2 (09:46→21:15)
[2025-01-16] MEDS: Gabapentin 300 MG Capsule PO (09:47)
[2025-01-16] MEDS: Enoxaparin 40 MG/0.4 ML Syringe SC (09:47)
[2025-01-16] MEDS: Losartan Potassium 100 MG Tablet PO (09:47)
[2025-01-16] MEDS: Pantoprazole Sodium 40 MG Tablet PO (09:47)
[2025-01-16] MEDS: Docusate Sodium 100 MG Capsule PO (09:48)
[2025-01-16] MEDS: Metoprolol(XL)Succ 50 MG Tablet PO (09:48)
[2025-01-16] MEDS: Sertraline 50 MG Tablet PO (09:48)
[2025-01-16] MEDS: Montelukast 10 MG Tablet PO (09:48)
[2025-01-16] MEDS: BUPRENORPHINE HCL 300 MCG BUCCAL ×2 (09:55→21:26)
[2025-01-16] MEDS: levoFLOXacin IV 750 MG/150 ML BAG 100 MG IV (09:55)
--- NOTE | 2025-01-16 10:23 | CASEMGMT ---
Updates sent to [facility] with note that pt could return over the weekend. Green sheet and transport for placed on chart. Brandy Givens DC Planning Asst.
--- NOTE | 2025-01-16 12:01 | PCM.PN.HOSP ---
Subjective Subjective Doing well, feels a bit better. Down to about 6 L nasal cannula Objective Data Objective Data Vital Signs: Vital Signs Temp Pulse Resp BP Pulse Ox O2 Del Method O2 Flow Rate 97.2 F L 73 18 101/58 L 93 High Flow 6 01/16/25 09:40 01/16/25 09:48 01/16/25 09:40 01/16/25 09:40 01/16/25 09:40 01/16/25 10:00 01/16/25 10:00 FiO2 40 01/16/25 04:33 Oxygen Flow Rate (L/min) 6 Oxygen Delivery Method High Flow Weight: 348 lb 8.813 oz Body Mass Index (BMI) 81.0 Intake & Output: Intake and Output for Last 24 Hours 01/15/25 01/16/25 01/17/25 03:59 03:59 03:59 Intake Total 3069.17 / 3069.17 2725 / 2725 275 / 275 Output Total 350 / 350 1340 / 1340 Balance 2719.17 / 2719.17 1385 / 1385 275 / 275 Lab / Micro Data 01/16/25 05:13 01/16/25 05:13 Labs: Laboratory Results - last 24 hr 01/15/25 11:43: POC Glucose 101 01/15/25 15:47: POC Glucose 114 H 01/15/25 21:51: POC Glucose 133 H 01/16/25 05:13: WBC 6.6, RBC 3.62 L, Hgb 10.3 L, Hct 31.8 L, MCV 87.8, MCH 28.5, MCHC 32.4, RDW Std Deviation 49.3 H, RDW Coeff of Naga 15.4 H, Plt Count 229, MPV 10.8, Immature Gran % (Auto) 0.900, Neut % (Auto) 64.6, Lymph % (Auto) 19.5, [place] % (Auto) 11.2 H, Eos % (Auto) 3.2, Baso % (Auto) 0.6, Absolute Neuts (auto) 4.3, Absolute Lymphs (auto) 1.29, Nucleated RBC % 0, Sodium 138, Potassium 3.8, Chloride 105, Carbon Dioxide 24.7, Anion Gap 9, BUN 8, Creatinine 0.56 L, Estim Creat Clear Calc 109.37, Est GFR (MDRD) Non-Af 101, BUN/Creatinine Ratio 14.2, Glucose 104 H, Calcium 8.5 Micro: Microbiology 01/14/25 10:45 Urine, Catheterized Urine Culture - Final Culture exhibits no growth. 01/14/25 10:11 Blood Culture (Wb) - Right Forearm Blood Culture - Preliminary No growth in 48 hours. 01/14/25 10:11 Blood Culture (Wb) - Right Forearm Blood Culture - Preliminary No growth in 48 hours. 01/14/25 22:27 Sputum, Expectorated/Coughed Gram Stain - Final 01/14/25 10:45 Urine, Random Legionella Antigen - Final 01/14/25 10:45 Urine, Random Streptococcus pneumoniae Antigen (M - Final 01/14/25 08:31 Mucosa - Nose SARS-CoV-2, Influenza & RSV (PCR) - Final Physical Exam Narrative General: Alert, Oriented x3, Cooperative, No apparent distress HEENT: Atraumatic, PERRLA, EOMI, Normocephalic Oral: Moist Mucosa Neck: Supple, No JVD Lungs: Diminished, Normal air movement, No rhonchi, No wheeze, No rales Cardiovascular: Regular rate, Regular Rhythm, Normal S1, Normal S2, No murmurs Abdomen: Soft, Non Tender, Non-Distended, No Hepato-splenomegaly Extremities: No edema, Capillary Refill Less than 3 Seconds Skin: No rashes, No breakdown Musculoskeletal: Bilateral BKA Neurological: No focal neurological deficits, Motor Exam 5/5 strength throughout, Sensory exam intact to light touch and pain Psych/Mental Status: Normal Affect, Appropriate Assessment & Plan Assessment/Plan (1) Acute hypoxemic respiratory failure: (2) Pneumonia: PLAN: Plan 1. Acute hypoxic respiratory failure secondary to left lower lobe pneumonia ? On arrival she was tachypneic with an increased work of breathing, at the time of my exam she has been on BiPAP so the symptoms have resolved ? Can resume wearing her BiPAP at night we will continue with oxygen during the day. Wean as able ? Continue with Levaquin ? Sputum cultures pending, 1+ gram-positive cocci ? She is not septic 2. Essential HTN/HLD/morbid obesity ? Recommend weight loss and dietary modifications, BMI is 57.7 ? Continue with her home blood pressure medications ? Continue with her cholesterol medications ? Will monitor make adjustments as necessary 3. DM2 ? Hold metformin ? Sliding scale insulin ? Accu-Cheks ACHS ? Will monitor make adjustments as necessary 4. COPD/asthma with FAY ? Continue with BiPAP at night ? No evidence of wheezing on exam, will hold off steroids given her diabetes and her infection ? Continue with her inhalers 5. Anxiety/depression ? Stable ? Continue with her home medications DVT: Lovenox Charges/Coding Visit Charges Inpatient E&M: 49916 Subs Hosp L2
[2025-01-16 12:35] LABS: Bedside Glucose 123 mg/dL (74-106)
[2025-01-16 16:01] LABS: Bedside Glucose 167 mg/dL (74-106)
[2025-01-16 18:32] LABS: Bedside Glucose 119 mg/dL (74-106)
[2025-01-16] MEDS: Atorvastatin Calcium 10 MG Tablet PO (21:13)
[2025-01-16] MEDS: Lidocaine 5% Patch 1 PATCH TOPICAL (21:13)
[2025-01-16] MEDS: Amitriptyline 100 MG Tablet PO (21:14)
[2025-01-16] MEDS: Gabapentin 300 MG Capsule 600 MG PO (21:26)
[2025-01-16 21:47] LABS: Bedside Glucose 111 mg/dL (74-106)
[2025-01-17] VITALS (9 sets, daily range): BP systolic 95–127; BP diastolic 60–82; PULSE 66–82; RESP 12–22; TEMP 36.6–36.9; O2SAT 91–95
[2025-01-17] MEDS: Pramipexole Di-HCl 1 MG Tablet PO (05:29)
[2025-01-17 06:00] LABS: Bedside Glucose 113 mg/dL (74-106)
[2025-01-17] MEDS: Ipratropium/Albuterol Sulfate 3 ML AMPUL.NEB INHALATION ×2 (06:58→10:44)
[2025-01-17] MEDS: Budesonide Respules 0.5 MG/2 ML AMPUL.NEB. INHALATION (06:58)
[2025-01-17] MEDS: Acetaminophen 500 MG Tablet 1000 MG PO (08:07)
[2025-01-17] MEDS: Metoprolol(XL)Succ 50 MG Tablet PO (08:08)
[2025-01-17] MEDS: Montelukast 10 MG Tablet PO (08:08)
[2025-01-17] MEDS: Sertraline 50 MG Tablet PO (08:08)
[2025-01-17] MEDS: Gabapentin 300 MG Capsule PO (08:08)
[2025-01-17] MEDS: Enoxaparin 40 MG/0.4 ML Syringe SC (08:09)
[2025-01-17] MEDS: Pantoprazole Sodium 40 MG Tablet PO (08:09)
[2025-01-17] MEDS: Docusate Sodium 100 MG Capsule PO (08:09)
[2025-01-17] MEDS: Losartan Potassium 100 MG Tablet PO (08:09)
[2025-01-17] MEDS: Menthol/Lanolin/Calamine/Znox 113 GM Tube 1 APPLIC TOPICAL (08:15)
[2025-01-17] MEDS: BUPRENORPHINE HCL 300 MCG BUCCAL (08:15)
--- NOTE | 2025-01-17 09:37 | PCM.TXEXTCAR ---
Diet Diet Order/Speech Therapy: 01/15/25 10:28 Carb [Diet: Carbohydrate Controlled] Food consistency:: Regular Liquid Consistency:: Regular/Thin Dietary Modifications:: No Added Salt Routine Orders/Code Status Routine Lab Work: CBC and BMP Code Status: Full Code DC O2, CPAP, BIPAP needs Home O2 Discharge instructions: No Therapies Physical Therapy: Eval and Treat Occupational Therapy: Eval and Treat Problem/Diagnosis (1) Acute hypoxemic respiratory failure: Status: Acute Code(s): J96.01 - Acute respiratory failure with hypoxia (2) Pneumonia: Status: Acute Code(s): J18.9 - Pneumonia, unspecified organism Plan 1. Acute hypoxic respiratory failure secondary to left lower lobe pneumonia ? On arrival she was tachypneic with an increased work of breathing, at the time of my exam she has been on BiPAP so the symptoms have resolved ? Can resume wearing her BiPAP at night we will continue with oxygen during the day. Wean as able ? Continue with Levaquin ? Sputum cultures pending, 1+ gram-positive cocci ? She is not septic 2. Essential HTN/HLD/morbid obesity ? Recommend weight loss and dietary modifications, BMI is 57.7 ? Continue with her home blood pressure medications ? Continue with her cholesterol medications ? Will monitor make adjustments as necessary 3. DM2 ? Hold metformin ? Sliding scale insulin ? Accu-Cheks ACHS ? Will monitor make adjustments as necessary 4. COPD/asthma with FAY ? Continue with BiPAP at night ? No evidence of wheezing on exam, will hold off steroids given her diabetes and her infection ? Continue with her inhalers 5. Anxiety/depression ? Stable ? Continue with her home medications DVT: Lovenox Allergies/Procedures Done in Hospital Allergies losartan (From Cozaar) Allergy (Mild, Verified 12/29/24 12:52) Rash pt states she had a reaction previously to this med and she forgot to have it added to her her allergy list. cefepime Allergy (Unknown, Verified 12/29/24 12:52) NEEDS FOLLOW-UP clonazepam Allergy (Unknown, Verified 12/29/24 12:52) NEEDS FOLLOW-UP hydromorphone Allergy (Unknown, Verified 12/29/24 12:52) NEEDS FOLLOW-UP ketamine Allergy (Unknown, Verified 12/29/24 12:52) NEEDS FOLLOW-UP lisinopril Allergy (Unknown, Verified 12/29/24 12:52) NEEDS FOLLOW-UP vancomycin Allergy (Verified 12/29/24 12:52) Rash amlodipine Adverse Reaction (Verified 12/29/24 12:52) Swelling Procedures: None Type of Care/Length of Stay Estimated LOS: More Than 30 Days Type of Care Needed: Intermediate Rehab Potential: Good Prognosis: Good Additional Orders/Day of Discharge Day of Discharge: 01/17/25 Dietary and Speech Recommendations Dietitian Recommendations/Changes: Adjust to CCD, no added salt diet. Will monitor weight trends. Discharge Plan Admission Admit Date/Time: 01/14/25 11:59 Attending Provider: Rigo Trinidad Primary Care Provider: Matt Penn Discharge Orders/Prescriptions Prescriptions: New levofloxacin 750 mg tablet 750 mg PO DAILY Qty: 5 0RF Continued albuterol sulfate 90 mcg/actuation HFA aerosol inhaler 2 puff inhalation Q6H PRN (Reason: shortness of breath or wheezing) Qty: 8.5 6RF Rx Instructions: administer with spacer metformin 850 mg tablet 850 mg PO BID sertraline 50 mg tablet 50 mg PO DAILY valsartan 320 mg tablet 320 mg PO DAILY omeprazole 40 mg capsule,delayed release(DR/EC) 40 mg PO DAILY pramipexole 1.5 mg tablet 3 mg PO QHS amitriptyline 100 mg tablet 100 mg PO QHS cholecalciferol (vitamin D3) 1,250 mcg (50,000 unit) capsule 1,250 mcg PO MO metoprolol succinate 50 mg tablet extended release 24 hr 50 mg PO DAILY montelukast 10 mg Tablet 10 mg PO DAILY albuterol sulfate 2.5 mg /3 mL (0.083 %) solution for nebulization 1.25 mg inhalation Q4H PRN (Reason: sob/wheezing) atorvastatin 10 mg tablet 10 mg PO QHS docusate sodium [Colace] 100 mg capsule 100 mg PO DAILY fluticasone propionate [Flonase Allergy Relief] 50 mcg/actuation spray,suspension 1 spray intranasal DAILY Rx Instructions: administer into each nostril fluticasone propion-salmeterol [Advair Diskus] 250-50 mcg/dose blister with device 1 inh inhalation BID gabapentin 300 mg capsule 300 mg PO DAILY loratadine [Allergy Relief (loratadine)] 10 mg tablet 10 mg PO DAILY melatonin 5 mg tablet 5 mg PO QHS multivitamin [Daily Multi-Vitamin] Tablet 1 tab PO DAILY acetaminophen [Acetaminophen Extra Strength] 500 mg tablet 1,000 mg PO Q8H PRN (Reason: pain) hydroxyzine pamoate [Vistaril] 25 mg capsule 25 mg PO Q6H PRN (Reason: anxiety) buprenorphine HCl [Belbuca] 300 mcg film 300 mcg BUCCAL BID diphenhydramine HCl [Benadryl Allergy] 25 mg tablet 25 mg PO Q4H PRN (Reason: allergic reaction) Biotene Dry Mouth Oral Rinse Mouthwash 15 ml mucous membrane DAILY bisacodyl 10 mg suppository 10 mg MS QHS PRN (Reason: constipation) Rx Instructions: USE NEEDED IF NO BM 8 HOURS AFTER MOM ADMINISTRATION mineral oil [Fleet Mineral Oil] Enema 118 ml MS DAILY PRN (Reason: constipation) Rx Instructions: ADMINISTER ONCE DAILY IF NO BM 8 HOURS AFTER RECEIVING SUPPOSITORY. IF NO BM WITHIN 1 HOUR AFTER RECEIVING ENEMA NOTIFY MD. gabapentin 300 mg capsule 600 mg PO QHS Patient Comments: TAKE 1 CAPSULE IN AM, 2 CAPSULES AT BEDTIME. ibuprofen [Advil] 200 mg tablet 400 mg PO Q12H PRN (Reason: pain) lidocaine [DermacinRx Lidocan] 5 % adhesive patch,medicated 1 patch topical QHS Rx Instructions: APPLY TO THE LEFT SHOULDER AT BEDTIME. REMOVE AFTER 12 HOURS. magnesium hydroxide [Dulcolax (magnesium hydroxide)] 400 mg/5 mL suspension 2,400 mg PO DAILY PRN (Reason: constipation) Rx Instructions: GIVE ONCE DAILY PER BOWEL PROTOCOL. ADMINISTER IF NO BM IN 3 CONSECUTIVE DAYS polyethylene glycol 3350 [ClearLax] 17 gram/dose powder 17 g PO DAILY PRN (Reason: constipation) guaifenesin [Mucinex] 600 mg tablet extended release 12hr 600 mg PO BID PRN (Reason: congestion) potassium chloride 20 mEq/15 mL liquid 6.6667 meq PO BID guaifenesin [Adult Tussin Chest Congestion] 100 mg/5 mL liquid 200 mg PO Q6H PRN (Reason: cough) Referrals / Follow Up: Matt Penn MD [Primary Care Provider] - Disposition Disposition (needs filled in before D/C Order can be placed): [facility]
[2025-01-17] MEDS: levoFLOXacin IV 750 MG/150 ML BAG 100 MG IV (10:08)
--- NOTE | 2025-01-17 11:26 | CASEMGMT ---
Social Work Pt is ready to return to [facility] today. [facility]R faxed all discharge instructions including transfer to extended care and med list to [facility]. [facility] set up transportation for 12:30 w/[facility]. EPTR let pt, pt's RN, Eric know time of discharge. Pt agreeable for [facility] to call pt's daughter. [facility] called pt's daughter, Sabrina, let her know pt is going back to [facility] today. No further needs, pt returning to [facility] today. LAURE Todd
[2025-01-17 11:50] LABS: Bedside Glucose 145 mg/dL (74-106)
--- NOTE | 2025-01-17 15:50 | DS.PCM_ITS ---
Providers Date of Admission: 01/14/25 Primary Care Physician: Dr. Matt Penn MD Reason For Visit: RESP FAILURE ON BIPAP DUE TO PNEUMONIA Diagnosis Discharge Diagnosis (1) Acute hypoxemic respiratory failure: Status: Acute Code(s): J96.01 - Acute respiratory failure with hypoxia (2) Pneumonia: Status: Acute Code(s): J18.9 - Pneumonia, unspecified organism Medications at Discharge Home Medications albuterol sulfate 90 mcg/actuation aerosol inhaler 2 puff inhalation Q6H PRN shortness of breath or wheezing #8.5 grams 05/11/21 valsartan 320 mg tablet 320 mg PO DAILY heart 05/19/21 omeprazole 40 mg capsule,delayed release 40 mg PO DAILY gerd 06/15/21 pramipexole 1.5 mg tablet 3 mg PO QHS RESTLESS LEG SYNDROME 06/15/21 amitriptyline 100 mg tablet 100 mg PO QHS PHANTOM PAIN/DEPRESSION 08/31/22 cholecalciferol (vitamin D3) 1,250 mcg (50,000 unit) capsule 1,250 mcg PO MO SUPPLEMENT 08/31/22 metoprolol succinate 50 mg tablet,extended release 24 hr 50 mg PO DAILY blood pressure 10/16/22 montelukast 10 mg tablet 10 mg PO DAILY asthma 10/16/22 albuterol sulfate 2.5 mg/3 mL (0.083 %) solution for nebulization 1.25 mg inhalation Q4H PRN sob/wheezing 07/21/23 atorvastatin 10 mg tablet 10 mg PO QHS cholesterol 07/21/23 docusate sodium 100 mg capsule (Colace) 100 mg PO DAILY constipation 07/21/23 fluticasone 250 mcg-salmeterol 50 mcg/dose blistr powdr for inhalation (Advair Diskus) 1 inh inhalation BID copd 07/21/23 fluticasone propionate 50 mcg/actuation nasal spray,suspension (Flonase Allergy Relief) 1 spray intranasal DAILY allergies 07/21/23 gabapentin 300 mg capsule 300 mg PO DAILY phantom pain 07/21/23 loratadine 10 mg tablet (Allergy Relief (loratadine)) 10 mg PO DAILY allergies 07/21/23 melatonin 5 mg tablet 5 mg PO QHS sleep 07/21/23 multivitamin (Daily Multi-Vitamin tablet) 1 tab PO DAILY supplement 07/21/23 metformin 850 mg tablet 850 mg PO BID DIABETES 05/06/24 sertraline 50 mg tablet 50 mg PO DAILY DEPRESSION 05/06/24 acetaminophen 500 mg tablet (Acetaminophen Extra Strength) 1,000 mg PO Q8H PRN pain 05/08/24 hydroxyzine pamoate 25 mg capsule (Vistaril) 25 mg PO Q6H PRN anxiety 05/08/24 bisacodyl 10 mg rectal suppository 10 mg MN QHS PRN constipation 01/14/25 buprenorphine HCl 300 mcg buccal film (Belbuca) 300 mcg buccal BID 01/14/25 diphenhydramine HCl 25 mg tablet (Benadryl Allergy) 25 mg PO Q4H PRN allergic reaction 01/14/25 gabapentin 300 mg capsule 600 mg PO QHS FOR PHANTOM PAIN 01/14/25 guaifenesin 100 mg/5 mL oral liquid (Adult Tussin Chest Congestion) 200 mg PO Q6H PRN cough 01/14/25 guaifenesin 600 mg tablet, extended release 12 hr (Mucinex) 600 mg PO BID PRN congestion 01/14/25 ibuprofen 200 mg tablet (Advil) 400 mg PO Q12H PRN pain 01/14/25 lidocaine 5 % topical patch (DermacinRx Lidocan) 1 patch topical QHS PAIN 01/14/25 magnesium hydroxide 400 mg/5 mL oral suspension (Dulcolax (magnesium hydroxide)) 2,400 mg PO DAILY PRN constipation 01/14/25 mineral oil (Fleet Mineral Oil enema) 118 ml MN DAILY PRN constipation 01/14/25 polyethylene glycol 3350 17 gram/dose oral powder (ClearLax) 17 g PO DAILY PRN constipation 01/14/25 potassium chloride 20 mEq/15 mL oral liquid 6.6667 meq PO BID SUPPLEMENT 01/14/25 saliva substitute combo no.9 (Biotene Dry Mouth Oral Rinse mouthwash) 15 ml mucous membrane DAILY DRY MOUTH 01/14/25 levofloxacin 750 mg tablet 750 mg PO DAILY #5 tabs 01/17/25 Hospital Course Operations None Procedures None Summary of Care Provided Minutes Spent on Discharge: 33 Hospital Course: Per HPI: SAULO PUENTES, is a 64 F who presents to the hospital with the increased shortness of breath and found to be in respiratory failure necessitating BiPAP. She said that she felt fine last evening and then this morning she was getting into a chair where she felt suddenly short of breath. She was found to have a fever of 101, but denies any chills and no sick contacts though she does reside at the [facility] in [place]. Initially there is concern for possible PE so CTA of the chest was obtained which demonstrated left lower lobe pneumonia and no definite PE. Denies any chest pain. She does wear BiPAP at baseline but only at night and today she was hypoxic and at the residential and was transported to the ER. Hospital Course: 1. Hypoxia present failure secondary left lower lobe pneumonia?64-year-old female presented from the [facility] with left lower lobe pneumonia requiring BiPAP initially on arrival. She wears BiPAP at night but not during the day. Sputum cultures did initially growing gram-positive cocci but ultimately grew normal pierce. She was never septic on admission and improved significantly with IV Levaquin. She was discharged on 5 more days of p.o. Levaquin 750 mg daily. I discussed with her the plan for discharge and she expressed understanding of the risk benefits of going back to the residential and would like to go today. She was on room air at the time of discharge. 2. Essential hypertension, hyperlipidemia, morbid obesity, type 2 diabetes, COPD, FAY, anxiety, depression are all chronic medical conditions which complicate her care. Her home medications were continued where appropriate Physical Exam Narrative General: Alert, Oriented x3, Cooperative, No apparent distress HEENT: Atraumatic, PERRLA, EOMI, Normocephalic Oral: Moist Mucosa Neck: Supple, No JVD Lungs: Diminished, Normal air movement, No rhonchi, No wheeze, No rales Cardiovascular: Regular rate, Regular Rhythm, Normal S1, Normal S2, No murmurs Abdomen: Soft, Non Tender, Non-Distended, No Hepato-splenomegaly Extremities: No edema, Capillary Refill Less than 3 Seconds Skin: No rashes, No breakdown Musculoskeletal: Bilateral BKA Neurological: No focal neurological deficits, Motor Exam 5/5 strength throughout, Sensory exam intact to light touch and pain Psych/Mental Status: Normal Affect, Appropriate Weight / BMI Weight Weight: 348 lb 8.813 oz Body Mass Index (BMI) 81.0 ABG / Lab / Microbiology Data 01/16/25 05:13 01/16/25 05:13 Laboratory: Laboratory Results - last 24 hr 01/16/25 10:06: POC Glucose 167 H 01/16/25 16:59: POC Glucose 119 H 01/16/25 21:18: POC Glucose 111 H 01/17/25 05:31: POC Glucose 113 H 01/17/25 10:55: POC Glucose 145 H Microbiology: Microbiology 01/14/25 22:27 Sputum, Expectorated/Coughed Gram Stain - Final 01/14/25 22:27 Sputum, Expectorated/Coughed Respiratory Culture - Final 01/14/25 10:45 Urine, Catheterized Urine Culture - Final Culture exhibits no growth. 01/14/25 10:11 Blood Culture (Wb) - Right Forearm Blood Culture - Preliminary No growth in 48 hours. 01/14/25 10:11 Blood Culture (Wb) - Right Forearm Blood Culture - Preliminary No growth in 48 hours. 01/14/25 10:45 Urine, Random Legionella Antigen - Final 01/14/25 10:45 Urine, Random Streptococcus pneumoniae Antigen (M - Final 01/14/25 08:31 Mucosa - Nose SARS-CoV-2, Influenza & RSV (PCR) - Final D/C Instructions DC O2, CPAP, BIPAP Needs Home O2 Discharge instructions: No Meaningful Use Info Meaningful Use Meaningful Use Diagnoses (Choose all that apply): None applicable Ischemic Stroke Statin Dosing Therapy Reference: STATIN DOSE THERAPY REFERENCE: * Patients > 75 years receive moderate or high dose statin therapy. * Patients 75 years or YOUNGER should receive HIGH intensity statin dose unless contraindicated. You will be required to document reason for non-treatment if statin daily dose does not meet guidelines. HIGH DOSE STATIN THERAPY DAILY Atorvastatin > than or = to 40 mg Rosuvastatin > than or = to 20 mg Amlodipine + Atorvastatin > than or = to 2.5/40 mg Ezetimibe + Simvastatin 10/80 mg Simvastatin 80mg Discharge Plan Admission Admit Date/Time: 01/14/25 11:59 Attending Provider: Rigo Trinidad Primary Care Provider: Matt Penn Discharge Orders/Prescriptions Prescriptions: New levofloxacin 750 mg tablet 750 mg PO DAILY Qty: 5 0RF Continued albuterol sulfate 90 mcg/actuation HFA aerosol inhaler 2 puff inhalation Q6H PRN (Reason: shortness of breath or wheezing) Qty: 8.5 6RF Rx Instructions: administer with spacer metformin 850 mg tablet 850 mg PO BID sertraline 50 mg tablet 50 mg PO DAILY valsartan 320 mg tablet 320 mg PO DAILY omeprazole 40 mg capsule,delayed release(DR/EC) 40 mg PO DAILY pramipexole 1.5 mg tablet 3 mg PO QHS amitriptyline 100 mg tablet 100 mg PO QHS cholecalciferol (vitamin D3) 1,250 mcg (50,000 unit) capsule 1,250 mcg PO MO metoprolol succinate 50 mg tablet extended release 24 hr 50 mg PO DAILY montelukast 10 mg Tablet 10 mg PO DAILY albuterol sulfate 2.5 mg /3 mL (0.083 %) solution for nebulization 1.25 mg inhalation Q4H PRN (Reason: sob/wheezing) atorvastatin 10 mg tablet 10 mg PO QHS docusate sodium [Colace] 100 mg capsule 100 mg PO DAILY fluticasone propionate [Flonase Allergy Relief] 50 mcg/actuation spray,suspension 1 spray intranasal DAILY Rx Instructions: administer into each nostril fluticasone propion-salmeterol [Advair Diskus] 250-50 mcg/dose blister with device 1 inh inhalation BID gabapentin 300 mg capsule 300 mg PO DAILY loratadine [Allergy Relief (loratadine)] 10 mg tablet 10 mg PO DAILY melatonin 5 mg tablet 5 mg PO QHS multivitamin [Daily Multi-Vitamin] Tablet 1 tab PO DAILY acetaminophen [Acetaminophen Extra Strength] 500 mg tablet 1,000 mg PO Q8H PRN (Reason: pain) hydroxyzine pamoate [Vistaril] 25 mg capsule 25 mg PO Q6H PRN (Reason: anxiety) buprenorphine HCl [Belbuca] 300 mcg film 300 mcg BUCCAL BID diphenhydramine HCl [Benadryl Allergy] 25 mg tablet 25 mg PO Q4H PRN (Reason: allergic reaction) Biotene Dry Mouth Oral Rinse Mouthwash 15 ml mucous membrane DAILY bisacodyl 10 mg suppository 10 mg MN QHS PRN (Reason: constipation) Rx Instructions: USE NEEDED IF NO BM 8 HOURS AFTER MOM ADMINISTRATION mineral oil [Fleet Mineral Oil] Enema 118 ml MN DAILY PRN (Reason: constipation) Rx Instructions: ADMINISTER ONCE DAILY IF NO BM 8 HOURS AFTER RECEIVING SUPPOSITORY. IF NO BM WITHIN 1 HOUR AFTER RECEIVING ENEMA NOTIFY MD. gabapentin 300 mg capsule 600 mg PO QHS Patient Comments: TAKE 1 CAPSULE IN AM, 2 CAPSULES AT BEDTIME. ibuprofen [Advil] 200 mg tablet 400 mg PO Q12H PRN (Reason: pain) lidocaine [DermacinRx Lidocan] 5 % adhesive patch,medicated 1 patch topical QHS Rx Instructions: APPLY TO THE LEFT SHOULDER AT BEDTIME. REMOVE AFTER 12 HOURS. magnesium hydroxide [Dulcolax (magnesium hydroxide)] 400 mg/5 mL suspension 2,400 mg PO DAILY PRN (Reason: constipation) Rx Instructions: GIVE ONCE DAILY PER BOWEL PROTOCOL. ADMINISTER IF NO BM IN 3 CONSECUTIVE DAYS polyethylene glycol 3350 [ClearLax] 17 gram/dose powder 17 g PO DAILY PRN (Reason: constipation) guaifenesin [Mucinex] 600 mg tablet extended release 12hr 600 mg PO BID PRN (Reason: congestion) potassium chloride 20 mEq/15 mL liquid 6.6667 meq PO BID guaifenesin [Adult Tussin Chest Congestion] 100 mg/5 mL liquid 200 mg PO Q6H PRN (Reason: cough) Referrals / Follow Up: Matt Penn MD [Primary Care Provider] - Disposition Disposition (needs filled in before D/C Order can be placed): [facility] Charges/Coding Visit Charges Inpatient E&M: 67255 Disch Hosp >30min
== END 2025-01-17 12:50 | disposition skilled nursing facility (03) | DRG 193 ==
LOC: ED 11:48 → PCU 12:36
PROVIDERS: Admitting Provider Family Medicine; Emergency Provider Emergency Medicine; PCP Family Medicine; Visit Provider Family Medicine
DX: J18.9 Pneumonia, unspecified organism (principal); J96.01 Acute respiratory failure with hypoxia; Z68.43 Body mass index [BMI] 50.0-59.9, adult; J44.0 Chronic obstructive pulmonary disease with (acute) lower respiratory infection; I11.0 Hypertensive heart disease with heart failure; Z89.611 Acquired absence of right leg above knee; E11.9 Type 2 diabetes mellitus without complications; F32.A Depression, unspecified; Z89.512 Acquired absence of left leg below knee; E66.01 Morbid (severe) obesity due to excess calories; E78.5 Hyperlipidemia, unspecified; G47.33 Obstructive sleep apnea (adult) (pediatric); F41.9 Anxiety disorder, unspecified; Z79.51 Long term (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 inhaled steroids; Z79.84 Long term (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 oral hypoglycemic drugs; Z79.899 Other long term (current) drug therapy; Z86.711 Personal history of pulmonary embolism; Z86.718 Personal history of other venous thrombosis and embolism; Z87.891 Personal history of nicotine dependence
CPT/HCPCS: 36415; 36600; 71045; 71275; 80048; 80053; 81001; 82803; 82962; 83605; 83880; 84484; 85025; 85610; 85730; 87040; 87070; 87086; 87205; 87449; 87631; 93005; 94002; 94003; 94640; 94668; 94762; 99285; Q9967; A4216

== ENCOUNTER → 2025-05-08 | Outpatient (CLI) | payer MEDICARE, MEDICAID, SELFPAY ==
--- NOTE | 2025-05-08 14:53 | CT_ITS ---
PROCEDURE: CHEST WITHOUT CONTRAST 05/08/2025 REASON FOR EXAM: SOLITARY PULMONARY NODULE Follow-up examination. TECHNIQUE: Chest CT without contrast. Coronal and Sagittal reconstruction series were provided. One or more dose reduction techniques were used (e.g., Automated exposure control, adjustment of the mA and/or kV according to patient size, use of iterative reconstruction technique RADIATION DOSE SUMMARY: CTDlvol: 22.71 mGy DLP: 721.87 mGycm COMPARISON: Prior examination dated January 14, 2025. FINDINGS: Hardware: None Lymph nodes: Small benign-appearing bilateral axillary lymph nodes. Heart and Vasculature: The heart is nonenlarged. Coronary Artery Calcifications: Present Lungs and Airways: The previously seen left lower lobe infiltrate as cleared. No nodules are seen. Pleura: No pleural effusion. Upper Abdomen: Unremarkable. Bones: Degenerative changes of the thoracic spine. CT/Chest without Contrast IMPRESSION: Coronary artery calcification (CAC) is is present Previously seen left lower lobe infiltrate as cleared. Reading Location: [place] [id number]
== END | disposition home or self-care (01) ==
LOC: CT 14:52
PROVIDERS: PCP Family Medicine; Referring Provider Nurse Practitioner Family; Visit Provider Nurse Practitioner Family
DX: R91.1 Solitary pulmonary nodule (principal)
CPT/HCPCS: 71250

== ENCOUNTER 2025-05-16 05:38 | Emergency (ER) | payer MEDICARE, MEDICAID, SELFPAY ==
[2025-05-16] VITALS (7 sets, daily range): BP systolic 102–129; BP diastolic 72–97; PULSE 72–79; RESP 16–20; TEMP 36.6–36.7; O2SAT 95–99; BMI 56.8
--- NOTE | 2025-05-16 05:48 | EKG12_ITS ---
Test Reason : CP Blood Pressure : */* mmHG Vent. Rate : 70 BPM Atrial Rate : 70 BPM P-R Int : 178 ms QRS Dur : 88 ms QT Int : 384 ms P-R-T Axes : 25 -5 28 degrees QTcB Int : 414 ms Normal sinus rhythm Nonspecific T wave abnormality Abnormal ECG Confirmed by STEWART KISER MD ([id number]), video news editor ANJUM BERNSTEIN ([id number]) on 05/18/2025 9:19:21 AM Referred By: BB Confirmed By: STEWART KISER MD
--- NOTE | 2025-05-16 05:49 | ED.VIS.DYS ---
HPI <Dr. August Hobson MD - Last Filed: 05/16/25 07:13> History of Present Illness Chief Complaint: Cough Informant: patient and EMS Narrative Narrative: 64-year-old female sent from shelter at 5:45 AM because she woke up with coughing, chest pressure, shortness of breath feels like her asthma. She states they did an albuterol treatment for her and it did not really seem to help her chest pressure. She states she tested positive for COVID yesterday, she was having sore throat and some congestion. She states that hurts worse to cough. Hurts worse on the right than the left of her chest. [facility] <Dr. 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 Chronic wound of extremity Anemia Necrotizing fasciitis Below knee amputation Depression Rheumatoid arthritis GERD (gastroesophageal reflux disease) Former smoker BiPAP (biphasic positive airway pressure) dependence Sleep apnea Hypertension Failure of outpatient treatment Anxiety and depression Bronchospasm Asthma exacerbation Family history of diabetes mellitus (DM) Restless leg syndrome Obstructive sleep apnea Morbid obesity Fibromyalgia Reflex sympathetic dystrophy Benign essential HTN Asthma Anxiety Home Medications ?Medication ?Instructions ?Recorded ?Last Taken ?Type albuterol sulfate 90 mcg/actuation 2 puff inhalation Q6H PRN 05/11/21 08/24/22 Rx aerosol inhaler shortness of breath or wheezing #8.5 grams valsartan 320 mg tablet 320 mg PO DAILY heart 05/19/21 08/31/22 History pramipexole 1.5 mg tablet 3 mg PO QHS RESTLESS LEG SYNDROME 06/15/21 08/30/22 History amitriptyline 100 mg tablet 100 mg PO QHS PHANTOM 08/31/22 08/30/22 History PAIN/DEPRESSION cholecalciferol (vitamin D3) 1,250 1,250 mcg PO MO SUPPLEMENT 08/31/22 08/28/22 History mcg (50,000 unit) capsule metoprolol succinate 50 mg 50 mg PO DAILY blood pressure 10/16/22 Unknown History tablet,extended release 24 hr montelukast 10 mg tablet 10 mg PO DAILY asthma 10/16/22 Unknown History albuterol sulfate 2.5 mg/3 mL 1.25 mg inhalation Q4H PRN 07/21/23 Unknown History (0.083 %) solution for nebulization sob/wheezing atorvastatin 10 mg tablet 10 mg PO QHS cholesterol 07/21/23 Unknown History docusate sodium 100 mg capsule 100 mg PO DAILY constipation 07/21/23 Unknown History (Colace) fluticasone 250 mcg-salmeterol 50 1 inh inhalation BID copd 07/21/23 Unknown History mcg/dose blistr powdr for inhalation (Advair Diskus) gabapentin 300 mg capsule 300 mg PO DAILY phantom pain 07/21/23 Unknown History loratadine 10 mg tablet (Allergy 10 mg PO DAILY allergies 07/21/23 Unknown History Relief (loratadine)) melatonin 5 mg tablet 5 mg PO QHS sleep 07/21/23 Unknown History multivitamin (Daily Multi-Vitamin 1 tab PO DAILY supplement 07/21/23 Unknown History tablet) metformin 850 mg tablet 850 mg PO BID DIABETES 05/06/24 Unknown History sertraline 50 mg tablet 50 mg PO DAILY DEPRESSION 05/06/24 Unknown History acetaminophen 500 mg tablet 1,000 mg PO Q8H PRN pain 05/08/24 Unknown History (Acetaminophen Extra Strength) hydroxyzine pamoate 25 mg capsule 25 mg PO Q6H PRN anxiety 05/08/24 Unknown History (Vistaril) bisacodyl 10 mg rectal suppository 10 mg GA QHS PRN constipation 01/14/25 Unknown History buprenorphine HCl 300 mcg buccal 300 mcg buccal BID 01/14/25 Unknown History film (Belbuca) diphenhydramine HCl 25 mg tablet 25 mg PO Q4H PRN allergic reaction 01/14/25 Unknown History (Benadryl Allergy) gabapentin 300 mg capsule 600 mg PO QHS FOR PHANTOM PAIN 01/14/25 Unknown History guaifenesin 100 mg/5 mL oral 100 mg PO Q6H PRN cough 01/14/25 Unknown History liquid (Adult Tussin Chest Congestion) guaifenesin 600 mg tablet, 600 mg PO BID PRN congestion 01/14/25 Unknown History extended release 12 hr (Mucinex) ibuprofen 200 mg tablet (Advil) 400 mg PO Q12H PRN pain 01/14/25 Unknown History lidocaine 5 % topical patch 1 patch topical QHS PAIN 01/14/25 Unknown History (DermacinRx Lidocan) magnesium hydroxide 400 mg/5 mL 2,400 mg PO DAILY PRN constipation 01/14/25 Unknown History oral suspension (Dulcolax (magnesium hydroxide)) mineral oil (Fleet Mineral Oil 118 ml GA DAILY PRN constipation 01/14/25 Unknown History enema) polyethylene glycol 3350 17 17 g PO DAILY PRN constipation 01/14/25 Unknown History gram/dose oral powder (ClearLax) saliva substitute combo no.9 15 ml mucous membrane DAILY DRY 01/14/25 Unknown History (Biotene Dry Mouth Oral Rinse MOUTH mouthwash) ondansetron 4 mg disintegrating 4 mg PO Q6H PRN nausea and vomiting 01/27/25 Unknown History tablet potassium chloride 20 mEq 20 meq PO BID 01/27/25 Unknown History tablet,extended release dexamethasone 6 mg tablet 6 mg PO DAILY #4 tabs 05/16/25 Unknown Rx ropinirole 0.25 mg tablet 0.25 mg PO TID 05/16/25 Unknown History Allergy/AdvReac Type Severity Reaction Status Date / Time losartan (From [employer]) Allergy Mild Rash Verified 05/16/25 05:39 cefepime Allergy Unknown NEEDS Verified 05/16/25 05:39 FOLLOW-UP clonazepam Allergy Unknown NEEDS Verified 05/16/25 05:39 FOLLOW-UP hydromorphone Allergy Unknown NEEDS Verified 05/16/25 05:39 FOLLOW-UP ketamine Allergy Unknown NEEDS Verified 05/16/25 05:39 FOLLOW-UP lisinopril Allergy Unknown NEEDS Verified 05/16/25 05:39 FOLLOW-UP vancomycin Allergy Rash Verified 05/16/25 05:39 amlodipine AdvReac Swelling Verified 05/16/25 05:39 Family History Mother Hypertension Cancer Pancreatic Diabetes Father Cancer pancreatic Brother Diabetes Asthma Hypertension Grandfather Diabetes Surgical History Hx of BKA Hx of breast reduction, elective Chronic knee pain after total replacement of left knee joint H/O foot surgery History of hysterectomy History of tonsillectomy Social History household members: significant other Smoking Status: Former smoker alcohol intake: never substance use type: does not use ROS <Dr. August Hobson MD - Last Filed: 05/16/25 07:13> ROS ED Constitutional Constitutional ED: Denies chills or fever(s) Eyes Eyes: Denies change in vision or diplopia ENT ENT ED: Reports nasal congestion, rhinorrhea and sore throat Cardiovascular Cardiovascular: Reports chest pain; Denies palpitations Respiratory/Chest Respiratory/Chest: Reports cough and dyspnea Gastrointestinal Gastrointestinal: Denies abdominal pain, diarrhea, nausea or vomiting Genitourinary Genitourinary ED: Denies dysuria or hematuria Musculoskeletal Musculoskeletal: Denies back pain or neck pain Integumentary Denies abscess or rash Neurologic Neurologic: Denies headache(s), paresthesias or weakness Psychiatric Psychiatric: Denies anxiety or suicidal thoughts EXAM <Dr. August Hobson MD - Last Filed: 05/16/25 07:13> Physical Exam Const Vital Signs: 05/16/25 05:39 05/16/25 05:42 05/16/25 05:42 Temperature 98.1 F 98.1 F Temperature Source Oral Oral Pulse Rate 75 75 Respiratory Rate 18 18 Respiratory Effort Short of Breath Labored Respiratory Depth Shallow Respiratory Pattern Tachypnea Blood Pressure 102/72 102/72 Blood Pressure Mean 82 82 Pulse Ox 99 99 Oxygen Delivery Method Room Air Room Air Room Air 05/16/25 05:50 05/16/25 05:52 05/16/25 06:42 Temperature 98 F Temperature Source Oral Pulse Rate 75 76 Respiratory Rate 20 H 18 Respiratory Effort Respiratory Depth Respiratory Pattern Tachypnea Blood Pressure 129/72 H Blood Pressure Mean 91 Pulse Ox 99 95 Oxygen Delivery Method Room Air Room Air Positive well nourished, well developed and obese General Appearance ED: well developed and NAD Nutritional Appearance: obese HEENT Reports moist mucous membranes normocephalic and atraumatic Eyes PERRL and EOMs intact bilaterally Neck full ROM and supple Resp normal respiratory effort Resp Narrative: Mild expiratory wheezes, otherwise clear. Cardio regular rate, regular rhythm and no murmurs GI non-tender and non-distended Auscultation: normoactive bowel sounds Palpation: soft Back/Spine no CVA tenderness General Back: other FROM Extremity normal to inspection Extremity Narrative: Status post right BKA and left AKA General Extremety ED: Negative for edema, pulses abnormal or tenderness General Extremity: Negative for edema or pulses abnormal Neuro oriented x3, CN's II-XII intact bilaterally and no sensory deficits noted Sensorium / Orientation: awake and alert Motor Exam: strength 5/5 throughout Skin no rashes or lesions noted and no wounds <Dr. Mario Marcelo MD - Last Filed: 05/16/25 09:35> Physical Exam Const Vital Signs: 05/16/25 05:39 05/16/25 05:42 05/16/25 05:42 Temperature 98.1 F 98.1 F Temperature Source Oral Oral Pulse Rate 75 75 Respiratory Rate 18 18 Respiratory Effort Short of Breath Labored Respiratory Depth Shallow Respiratory Pattern Tachypnea Blood Pressure 102/72 102/72 Blood Pressure Mean 82 82 Pulse Ox 99 99 Oxygen Delivery Method Room Air Room Air Room Air 05/16/25 05:50 05/16/25 05:52 05/16/25 06:42 Temperature 98 F Temperature Source Oral Pulse Rate 75 76 Respiratory Rate 20 H 18 Respiratory Effort Respiratory Depth Respiratory Pattern Tachypnea Blood Pressure 129/72 H Blood Pressure Mean 91 Pulse Ox 99 95 Oxygen Delivery Method Room Air Room Air MDM <Dr. August Hobson MD - Last Filed: 05/16/25 07:13> [facility] Narrative Medical decision making narrative: In context of COVID, I am less concerned about COVID-pneumonia since her vital signs are normal and she is not hypoxic with 99% saturations on room air. However she is having chest pain, some of which that feels pressure/tight like her asthma/COPD, and some that is lateralizing to the right. COVID increases the chances of her having venous thromboembolic disease and she apparently has a history of pulmonary embolus in the past and is no longer anticoagulated upon reviewing her [facility] medication list. For that reason, I sought to work her up for pulmonary embolus and pneumonia. 1 view chest x-ray on my interpretation shows no signs of pneumonia, radiology in agreement. Labs are noted, her D-dimer returns elevated even when corrected for age, therefore not performed left to rule out PE and will need to undergo CT inject his chest in order to do so. Patient is doing better after breathing treatments, chest is less tight, she is less dyspneic and able to converse in full sentences without difficulty or distress. Her vital signs are normal. CTA will be checked out to oncoming ED physician at shift change, if negative for PE, I support send [facility] for [facility] to treat her for an asthma/COPD exacerbation caused likely by COVID. If positive, she is stable and can probably still be discharged back, just with adding anticoagulation. Lab Data Attestation: I reviewed the patient's lab results. Labs: Laboratory Results - last 24 hr 05/16/25 05/16/25 06:15 06:22 WBC 9.2 RBC 4.70 Hgb 13.2 Hct 41.2 MCV 87.7 MCH 28.1 MCHC 32.0 RDW Std Deviation 48.9 H RDW Coeff of Naga 15.0 H Plt Count 246 MPV 10.5 Immature Gran % (Auto) 0.800 Neut % (Auto) 65.3 Lymph % (Auto) 22.6 Scott % (Auto) 10.3 H Eos % (Auto) 0.3 Baso % (Auto) 0.7 Absolute Neuts (auto) 6.0 Absolute Lymphs (auto) 2.07 Nucleated RBC % 0 D-Dimer Quant (PE/DVT) 0.89 H* Sodium 137 Potassium 4.0 Chloride 103 Carbon Dioxide 21.7 Anion Gap 12 BUN 18 Creatinine 0.62 L Estim Creat Clear Calc 110.12 Est GFR (MDRD) Non-Af 99 BUN/Creatinine Ratio 29.2 H Glucose 114 H Calcium 9.2 Troponin T High Sens < 6 D Radiography Diagnostic Testing: Clinical Impression(s) from Imaging Studies Chest X-Ray 05/16/25 06:32 IMPRESSION: No acute cardiopulmonary abnormalities. Reading Location: [facility] Chest CTA 05/16/25 08:29 IMPRESSION: No evidence of pulmonary embolism, with limited evaluation of the bilateral lower lobe distal subsegmental pulmonary arteries. Reading Location: [id number] Rhythm Strip Rhythm Strip: Sinus Rhythm Rate: 70 Ectopy: None EKG Initial EKG: Attestation: I personally reviewed and interpreted this EKG as follows: Interpretation: Sinus Rhythm and No Acute Injury Pattern Comments: Nml axis & intervals; nml EKG <Dr. Mario Marcelo MD - Last Filed: 05/16/25 09:35> [facility] Lab Data Labs: Laboratory Results - last 24 hr 05/16/25 05/16/25 06:15 06:22 WBC 9.2 RBC 4.70 Hgb 13.2 Hct 41.2 MCV 87.7 MCH 28.1 MCHC 32.0 RDW Std Deviation 48.9 H RDW Coeff of Naga 15.0 H Plt Count 246 MPV 10.5 Immature Gran % (Auto) 0.800 Neut % (Auto) 65.3 Lymph % (Auto) 22.6 Scott % (Auto) 10.3 H Eos % (Auto) 0.3 Baso % (Auto) 0.7 Absolute Neuts (auto) 6.0 Absolute Lymphs (auto) 2.07 Nucleated RBC % 0 D-Dimer Quant (PE/DVT) 0.89 H* Sodium 137 Potassium 4.0 Chloride 103 Carbon Dioxide 21.7 Anion Gap 12 BUN 18 Creatinine 0.62 L Estim Creat Clear Calc 110.12 Est GFR (MDRD) Non-Af 99 BUN/Creatinine Ratio 29.2 H Glucose 114 H Calcium 9.2 Troponin T High Sens < 6 D Radiography Diagnostic Testing: Clinical Impression(s) from Imaging Studies Chest X-Ray 05/16/25 06:32 IMPRESSION: No acute cardiopulmonary abnormalities. Reading Location: [facility] Chest CTA 05/16/25 08:29 IMPRESSION: No evidence of pulmonary embolism, with limited evaluation of the bilateral lower lobe distal subsegmental pulmonary arteries. Reading Location: [id number] Treatment and Re-Evaluation :: Patient care was transferred to md at change of shift. Patient had extravasation of her contrast into her left breast. There was no blanching initially. When she returned from the radiology suite and she was evaluated the breast appeared normal other than some slight swelling where there contrast extravasated. There is no erythema, warmth, induration. Capillary fill is normal. The radiology report was reviewed. Suspect her D-dimer is elevated due to the fact that she has COVID-19. Plan is to discharge in stable condition. Home-going's were reviewed and she has a prescription for Decadron's since she is positive for COVID-19. Discharge Plan Triage Chief Complaint: Cough ED Provider: August Hobson Dx/Rx/DC Orders Clinical Impression: Acute asthma exacerbation, Chest pain, Acute bronchitis due to COVID-19 virus, Sleep apnea, Morbid obesity, Hypertension, Elevated d-dimer Instructions: ED Asthma, Acute (Adult) Prescriptions: New dexamethasone 6 mg tablet 6 mg PO DAILY Qty: 4 0RF Rx Instructions: start 05/17 No Action albuterol sulfate 90 mcg/actuation HFA aerosol inhaler 2 puff inhalation Q6H PRN (Reason: shortness of breath or wheezing) Qty: 8.5 6RF Rx Instructions: administer with spacer metformin 850 mg tablet 850 mg PO BID sertraline 50 mg tablet 50 mg PO DAILY ondansetron 4 mg tablet,disintegrating 4 mg PO Q6H PRN (Reason: nausea and vomiting) potassium chloride 20 mEq tablet extended release 20 meq PO BID valsartan 320 mg tablet 320 mg PO DAILY pramipexole 1.5 mg tablet 3 mg PO QHS amitriptyline 100 mg tablet 100 mg PO QHS cholecalciferol (vitamin D3) 1,250 mcg (50,000 unit) capsule 1,250 mcg PO MO metoprolol succinate 50 mg tablet extended release 24 hr 50 mg PO DAILY montelukast 10 mg Tablet 10 mg PO DAILY albuterol sulfate 2.5 mg /3 mL (0.083 %) solution for nebulization 1.25 mg inhalation Q4H PRN (Reason: sob/wheezing) atorvastatin 10 mg tablet 10 mg PO QHS docusate sodium [Colace] 100 mg capsule 100 mg PO DAILY fluticasone propion-salmeterol [Advair Diskus] 250-50 mcg/dose blister with device 1 inh inhalation BID gabapentin 300 mg capsule 300 mg PO DAILY loratadine [Allergy Relief (loratadine)] 10 mg tablet 10 mg PO DAILY melatonin 5 mg tablet 5 mg PO QHS multivitamin [Daily Multi-Vitamin] Tablet 1 tab PO DAILY acetaminophen [Acetaminophen Extra Strength] 500 mg tablet 1,000 mg PO Q8H PRN (Reason: pain) hydroxyzine pamoate [Vistaril] 25 mg capsule 25 mg PO Q6H PRN (Reason: anxiety) buprenorphine HCl [Belbuca] 300 mcg film 300 mcg BUCCAL BID diphenhydramine HCl [Benadryl Allergy] 25 mg tablet 25 mg PO Q4H PRN (Reason: allergic reaction) Biotene Dry Mouth Oral Rinse Mouthwash 15 ml mucous membrane DAILY bisacodyl 10 mg suppository 10 mg GA QHS PRN (Reason: constipation) Rx Instructions: USE NEEDED IF NO BM 8 HOURS AFTER MOM ADMINISTRATION mineral oil [Fleet Mineral Oil] Enema 118 ml GA DAILY PRN (Reason: constipation) Rx Instructions: ADMINISTER ONCE DAILY IF NO BM 8 HOURS AFTER RECEIVING SUPPOSITORY. IF NO BM WITHIN 1 HOUR AFTER RECEIVING ENEMA NOTIFY MD. gabapentin 300 mg capsule 600 mg PO QHS Patient Comments: TAKE 1 CAPSULE IN AM, 2 CAPSULES AT BEDTIME. ibuprofen [Advil] 200 mg tablet 400 mg PO Q12H PRN (Reason: pain) lidocaine [DermacinRx Lidocan] 5 % adhesive patch,medicated 1 patch topical QHS Rx Instructions: APPLY TO THE LEFT SHOULDER AT BEDTIME. REMOVE AFTER 12 HOURS. magnesium hydroxide [Dulcolax (magnesium hydroxide)] 400 mg/5 mL suspension 2,400 mg PO DAILY PRN (Reason: constipation) Rx Instructions: GIVE ONCE DAILY PER BOWEL PROTOCOL. ADMINISTER IF NO BM IN 3 CONSECUTIVE DAYS polyethylene glycol 3350 [ClearLax] 17 gram/dose powder 17 g PO DAILY PRN (Reason: constipation) guaifenesin [Mucinex] 600 mg tablet extended release 12hr 600 mg PO BID PRN (Reason: congestion) guaifenesin [Adult Tussin Chest Congestion] 100 mg/5 mL liquid 100 mg PO Q6H PRN (Reason: cough) ropinirole 0.25 mg tablet 0.25 mg PO TID Primary Care Provider: Matt Penn Referrals: Matt Penn MD [Primary Care Provider] - Print Language: Montenegrin Disposition Disposition: Home, Self Care
[2025-05-16 06:23] LABS: Hematocrit 41.2 % (37-47); Hemoglobin 13.2 g/dL (12.0-15.0); Immature Granulocytes Count 0.070 X10^3/uL (0.0-0.0); Mean Corp Hgb Conc 32.0 g/dL (32-36); Mean Corpuscular Volume 87.7 fL (81-99); Mean Platelet Vol. 10.5 fl (6.2-12.0); NRBC Flagged by Analyzer 0 % (0-5); Platelet Count 246 K/mm3 (150-450); RBC Distribution Width CV 15.0 % (11.6-14.6); RBC Distribution Width SD 48.9 fl (35.1-43.9); Red Blood Count 4.70 M/mm3 (4.2-5.4); White Blood Count 9.2 K/mm3 (4.4-11.0)
--- NOTE | 2025-05-16 06:32 | RAD_ITS ---
PROCEDURE: CHEST 1 VIEW (PORTABLE) 05/16/2025 REASON FOR EXAM: COUGH SOB COVID POS TECHNIQUE: Frontal view of the chest. COMPARISON: Chest x-ray 01/14/2025. FINDINGS: Hardware: Monitor electrodes overlie the chest. Heart: No cardiomegaly. Lungs: Clear. No pleural effusion or pneumothorax. Bones: No acute bony abnormalities. Other: Spinal stimulators in place. RAD/Chest 1 View (Portable) IMPRESSION: No acute cardiopulmonary abnormalities. Reading Location: [id number]
--- OUTSIDE RECORDS SUMMARY | 2025-05-16 06:46 | XMS RPT_ITS | CCD ---
Author Organization [facility] Care Team Providers Care Civil Cad Designer Name Role Phone Bry Rowland Unavailable Unavailable RIGO SHELTON Unavailable Unavailable Physician, PCP Unknown Unavailable Deepaab Rigo Grady Primary Care Provider Elana Bradley Unavailable Unavailable RIGO SHELTON Admitting Unavaila RIGO Ruiz Attending Unavaila ble RIGO SHELTON Primary Care [facility]availa ble [facility] U RIGO Harrison Attending Unavaila ble RIGO SHELTON Primary Care Unavaila ble RIGO SHELTON Referring Unavaila ble RIGO SHELTON Admelia Unavaila ble [facility] Consult[facility] U DOROTHY Herrera Consulting Unavailabl e RIGO SHELTON Primary Care Unavaila ble LUISITO CARRINGTON Attending Unavail able LUISITO CARRINGTON Admitting Unavail able RIGO SHELTON Admitting Unavaila ble RIGO SHELTON Primary Care Unavaila ble RIGO SHELTON Admitting Unavaila ble RIGO SHELTON Primary Care Unavaila ble RIGO SHELTON Attending Unavaila ble RIGO SHELTON Referring Unavaila ble RIGO SHELTON Primary Care Unavaila ble RIGO SHELTON Attending Unavaila ble RIGO SHELTON Referring Unavaila ble RIGO SHELTON Primary Care Unavaila ble Oj Maddox Primary Care Provider Oj Maddox Primary Care Provider Oj Siddiqi APRN, CNP Primary Care Prov ider VARSHA CABLE DRILLER - TRIM STENCIL MAKER, OJ Perdue Primary Care Phys ician Lashaun PT, Vijaya Marshall Unavailable Varsha MAINTENANCE MECHANIC ENGINE, MAINTENANCE MECHANIC ENGINE-C Oj Thorpe Primary Care Pr ovider Dr. Dewayne Holcomb Referring Provider Dr. Dewayne Holcomb Emergency Provider Dr. Randal Webb Admit Provider Dr. Randal Webb Attending Provider Dr. Randal Webb Other Provider Dr. Laron Campoverde Attending Provider Dr. Laron Campoverde Other Provider Varsha MAINTENANCE MECHANIC ENGINE, MAINTENANCE MECHANIC ENGINE-C Oj Thorpe Primary Care Pr ovider Dr. Mario Marcelo Emergency Provider [phone] Dr. Phylicia Hurtado Admit Provider Dr. Phylicia Hurtado Other Provider Dr. Ludwin Lo Attending Provider Dr. Ludwin Lo Other Provider Alondra, Dr. Mag Prajapati Other Provider Dr. Rosenda Freedman Attending Provider Dr. Mag Cantu Attending Provider [phone] Andrea Royal Other Provider Dr. Andrea Prasad Attending Provider Dr. Kelsey Lima Other Provider Dr. Baljit Feng Attending Provider Dr. Kelsey Lima Attending Provider Dr. Phylicia Hurtado Referring Provider Dr. Eulalio De La Cruz Emergency Provider Dr. Rigo Trinidad Attending Provider Dr. Andrea Royal Referring Provider Dr. Eulalio De La Cruz Referring Provider Varsha MAINTENANCE MECHANIC ENGINE, MAINTENANCE MECHANIC ENGINE-C Oj Thorpe Referring Provi huy Anthony MAINTENANCE MECHANIC ENGINE, MAINTENANCE MECHANIC ENGINE-C Adwoa Attending Provider Dr. David Felipe Emergency Provider Alondra, Dr. Mag Prajapati Admit Provider Dr. Rigo Trinidad Other Provider Dr. Chris Gomez Attending Provider Dr. Laron Campoverde Referring Provider Dr. Louis Martinez Attending Provider Alondra, Dr. Mag Prajapati Referring Provider Oj Maddox Primary Care Provider Varsha, Oj Primary Care Provider VASRHA CABLE DRILLER - TRIM STENCIL MAKER, OJ D Attending U navailable VARSHA CABLE DRILLER - TRIM STENCIL MAKER, OJ D Primary Care U navailable VARSHA CABLE DRILLER - TRIM STENCIL MAKER, OJ D Attending U navailable VARSHA CABLE DRILLER - TRIM STENCIL MAKER, OJ D Primary Care U navailable VARSHA CABLE DRILLER - TRIM STENCIL MAKER, OJ D Attending U navailable VARSHA CABLE DRILLER - TRIM STENCIL MAKER, OJ D Primary Care U navailable VARSHA CABLE DRILLER - TRIM STENCIL MAKER, OJ D Attending U navailable VARSHA CABLE DRILLER - TRIM STENCIL MAKER, OJ D Primary Care U navailable VARSHA CABLE DRILLER - TRIM STENCIL MAKER, OJ D Attending U navailable VARSHA CABLE DRILLER - TRIM STENCIL MAKER, OJ D Primary Care U navailable [place] MAINTENANCE MECHANIC ENGINE, MAINTENANCE MECHANIC ENGINE-C Oj Thorpe Primary Care Pr ovider Dr. Edy Calvin Emergency Provider Dr. Laron Campoverde Attending Provider Dr. Laron Campoverde Admit Provider Dr. Laron Campoverde Other Provider Dr. Jon Brito Attending Provider Dr. Jon Brito Other Provider Dr. Kelsey Lima Attending Provider Dr. Kelsey Lima Other Provider VARSHA, OJ Primary Care Unavailable JESS, RUSTY Admitting Unavailable JESS, RUSTY Attending Unavailable JESS, RUSTY Admitting Unavailable JESS, RUSTY Attending Unavailable VARSHA, OJ Primary Care Unavailable JAILYN GALLOWAY Consulting Unavailable ILODI, VINH Admitting Unavailable EZIO, CRISTIAN Consulting Unavailable VARSHA, OJ Primary Care Unavailable SAMSON COLEMAN Attending Unavailable VARSHA, OJ Primary Care Unavailable JESS, RUSTY Attending Unavailable JESS, RUSTY Admitting Unavailable KAEHLER, JENNIFER Attending Unavailable VARSHA, OJ Primary Care Unavailable VARSHA, OJ Primary Care Unavailable KAEHLER, JENNIFER Attending Unavailable VARSHA, OJ Primary Care Unavailable KAEHLER, JENNIFER Attending Unavailable VARSHA, OJ Primary Care Unavailable JESS, RUSTY Attending Unavailable DORINA CARRINGTON Referring Unavailable VARSHA, OJ Primary Care Unavailable VARSHA, OJ Primary Care Unavailable JESS, RUSTY Attending Unavailable EZIO, CRISTIAN Attending Unavailable VARSHA, OJ Primary Care Unavailable KAEHLER, JENNIFER Attending Unavailable VARSHA, OJ Primary Care Unavailable LUDWIN CASAS Attending Unavailable FISH, BJ Referring Unavailable VARSHA, OJ Primary Care Unavailable FISH, BJ Attending Unavailable VARSHA, OJ Primary Care Unavailable JESS, RUSTY Attending Unavailable VARSHA, OJ Primary Care Unavailable VARSHA, OJ Primary Care Unavailable POLLACK, JOSE Attending Unavailable VARSHA, OJ Primary Care Unavailable POLLACK, JOSE Attending Unavailable Varsha, Oj Primary Care Provider Dr. Louis Penn MD Primary Care Provider Dr. Louis Penn MD Referring Provider Dr. Kayla Alcantara MD Attending Provider Dr. Colt Chappell DO Emergency Provider [phone] Amos BORDEN, Dr. Rigo Neil Admit Provider Amos BORDEN, Dr. Rigo Neil Attending Provider Amos BORDEN, Dr. Rigo Neil Other Provider Unavailable Primary Care Provider UnavailMILI Crystal Attending Unavailable Fili BORDEN, Louis Mendez Primary Care Provider [phone] LOLY ORTIZ Attending Unavailable LOUIS PENN Primary Care Unavailable Fili BORDEN, Dr. Gutierrez Primary Care Provider [phone] Fili BORDEN, Dr. Gutierrez Referring Provider Anthony MAINTENANCE MECHANIC ENGINE-C, Adwoa Attending Provider Kely MAINTENANCE MECHANIC ENGINE-C, Dania Attending Provider Kely MAINTENANCE MECHANIC ENGINE-C, Dania Referring Provider Kayla Alcantara Attending Unavailable Fili, Louis Referring Unavailable Penn, Louis Primary Care Unavailable Rigo Trinidad Consulting Unavailable Rigo Trinidad Admitting Unavailable Rigo Trinidad Attending Unavailable Penn, Louis Primary Care Unavailable Kely MAINTENANCE MECHANIC ENGINE, Dania Referring Unavailable Fili, Louis Primary Care Unavailable Kely MAINTENANCE MECHANIC ENGINE, Dania Attending Unavailable Fili, Louis Primary Care Unavailable Kely MAINTENANCE MECHANIC ENGINE, Dania Referring Unavailable Kely MAINTENANCE MECHANIC ENGINE, Dania Attending Unavailable Ifeanyi Gilmore Attending Unavailable Penn, Louis Referring Unavailable Penn, Louis Primary Care Unavailable Rigo Trinidad Admitting Unavailable Rigo Trinidad Attending Unavailable Penn, Louis Primary Care Unavailable Anthony MAINTENANCE MECHANIC ENGINE, Adwoa Attending Unavailable Penn, Louis Primary Care Unavailable Penn, Louis Referring Unavailable Kayla Alcantara Attending Unavailable Penn, Louis Referring Unavailable Penn, Louis Primary Care Unavailable Kayla Alcantara Attending Unavailable Penn, Louis Referring Unavailable Penn, Loius Primary Care Unavailable Dorina Potter Attending Unavailable polyethylene glycol (PEG) 3350 (Miralax) packet 17 g, 17 g, Oral, Daily, César Schneider MD, 17 g at 11/15/22 1525 senna-docusate sodium (Senokot-S) 8.6-50 MG tablet 2 tablet, 2 tablet, Oral, Nightly, César Schneider MD sodium chloride 0.9 % infusion, 5-250 mL/hr, IntraVENous, PRN, Maged Wilder MD sodium chloride 0.9% (NS) flush 5-40 mL, 5-40 mL, IntraVENous, q12h, Maged Wilder MD, 10 mL at 11/16/22 0700 sodium chloride 0.9% (NS) flush 5-40 mL, 5-40 mL, IntraVENous, PRN, Maged Wilder MD tiotropium (Spiriva) 18 MCG per inhalation capsule 18 mcg, 1 capsule, Inhalation, Daily, Maged Dempsey MD, 18 mcg at 11/13/22 0935 Medical Decision Making Acute, acute on chronic, unstable/uncontrolled chronic problems: LLE post-op infection, s/p I&D and wound vac (11/11, 11/14) Post-op blood loss anemia, stable/uptrending Stable chronic problems affecting care, new non-acute diagnoses: Asthma HTN Class III obesity FAY MDD As a result of the above findings & factors, the following mgmt was pursued: - ortho consulted, appreciate recs - plan to return to OR today for next I&D - NWB LLE - pain control (acetaminophen PO prn, oxycodone PO prn, morphine IV prn) - continuing to utilize morphine, and anticipate will need post-op-->leave in place - antibiotic - CTX (11/13-present); switch to cefdinir at discharge, plan for 10 days of therapy starting with final I&D (so last day is TBD) - cefazolin (11/11-11/13)--culture with E Coli with intermediate resistance to this - scheduled Senokot & Miralax - PT/OT/CM/SW - delirium precautions: increase activity - DVT prophylaxis: encourage ambulation (encourage activity d/t amputee status) Complexity: Acute, complicated injury (MOD). Multiple stable chronic illnesses (MOD). Risk: Use of parenteral controlled substances (HIGH). Prescription drug management (MOD). Advance Directive: Full Code Anticipated Discharge - Date - TBD - Location - Skilled Facility ([facility]) - Pending the following - at least one more I&D César Schneider MD Division of Hospitalist Medicine [place] [place]: [place] ([id number]) * Elise Warren MD - 11/16/2022 6:57 AM EST Images from the original note were not included. Orthopedic Progress Note Name: Siobhan Haas Date:11/16/2022 Attending:César Schneider MD Subjective Patient is doing well. She slept better overnight last night. Patient has no further questions concerning her surgery today. She denies fever, chills, and SOB. 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) Cellulitis of lower leg Back pain Tear of peroneal tendon Depressive disorder Hemorrhage of rectum and anus HTN (hypertension) Pansystolic murmur Chest wall pain Asthma Asthma with acute exacerbation Pain from implanted hardware Obstructive sleep apnea syndrome Chronic obstructive lung disease (HCC) Morbid obesity (CMS/HCC) ([facility]) Migraine headache Vitamin D deficiency Viral upper respiratory tract infection 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[facility]) Swelling of left lower extremity Shortness of breath Seasonal allergies Superficial incisional surgical site infection Rheumatoid arthritis ([facility]) Restless legs syndrome Anxiety Arthritis of right subtalar joint Attention deficit disorder of adult with hyperactivity Benign essential hypertension Bronchospasm Contusion of knee Edema of lower extremity Impaired fasting glucose Acquired deformity of left toe History of tonsillectomy Chronic knee pain after total replacement of left knee joint Weakness of left lower extremity History of hysterectomy Fibromyositis Increased body mass index (BMI) Gastroesophageal reflux disease Hiatal hernia Callosity senior care (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 antibiotics Left leg cellulitis Dehiscence of closure of skin, sequela Necrotizing soft tissue infection Infected wound Osteomyelitis ([facility]) Hematoma Cellulitis of right foot Post-op pain Osteomyelitis of right foot ([facility]) Open wound of right foot MSSA (methicillin susceptible Staphylococcus aureus) infection Right foot infection Hardware complicating wound infection (CMS/HCC) ([facility]) Right foot pain Postoperative pain Cellulitis Lymphedema Stump pain ([facility]) Abrasion of lower leg with infection, initial encounter PE (pulmonary thromboembolism) ([facility]) Surgical wound infection HLD (hyperlipidemia) PAST SURGICAL HISTORY Past Surgical History: Procedure Laterality Date ABCESS DRAINAGE Right 08/07/2020 I&D of right BKA hematoma ANKLE SURGERY Left 12/19/2021 ankle I and D with placement of wound vac - dr alyssa PARKS ABDOMINOPLASTY BREAST SURGERY 2006 and abdomin removal for excess COLONOSCOPY COLONOSCOPY EXTREMITY SURGERY Left 01/24/2022 debridement necrotizing fasciitis LLE, wound vac FOOT SURGERY Right 02/11/2019 FOOT SURGERY Right 2019 [place] FOOT SURGERY Right 04/08/2019 I&D right foot with antibiotic spacer FOOT SURGERY Right 04/24/2019 I&D;, external fixator FOOT SURGERY Left 08/04/2021 peroneus longus tenolysis - Dr Gamino HYSTERECTOMY 1997 INCONTINENCE SURGERY 11/15/2015 synthetic mid urethral sling,cystoscopy JOINT REPLACEMENT LIPOMA RESECTION Right 2014 shoulder ORTHOPEDIC SURGERY Right 04/01/2019 I&D with removal hardware and antibiotic spacer placed OTHER SURGICAL HISTORY Left 11/19/2021 I+D L ankle OTHER SURGICAL HISTORY 09/21/2016 INTERSTIM STAGE II, COMPLEX ANALYSIS OF NEUROSTIMULATOR OTHER SURGICAL HISTORY Right 03/07/2019 debridement of right foot OTHER SURGICAL HISTORY 10/27/2021 Irrigation and debridement of left lower extremity OTHER SURGICAL HISTORY 07/27/2020 Excision of scar tissue, neuroma RIGHT below knee amputation OTHER SURGICAL HISTORY NERVE BLOCKS FROM PAIN MANAGEMENT OTHER SURGICAL HISTORY Right 04/02/2019 R foot skin graft/flap, wound debridement/Wound vac removal OTHER SURGICAL HISTORY Right 04/22/2019 right foot I and D OTHER SURGICAL HISTORY Right 05/06/2019 Right Below Knee Amputation (CPT 28543), #2 Excisional debridement right iliac crest (wound 7 cm length, 3 cm width, 7 cm depth) TONSILLECTOMY (HISTORICAL) TOTAL KNEE ARTHROPLASTY Left 2012 ARTHROSCOPY FIRST AND KNEE REPLACED WISDOM TOOTH EXTRACTION WOUND DEBRIDEMENT Left 10/28/2021 irrigation and debridment LLE HOME MEDICATIONS Prior to Admission medications Medication Sig Start Date End Date Taking? Authorizing Provider acetaminophen (Tylenol) 325 MG tablet Take 2 tablets (650 mg) by mouth every 4 hours for 10 days. 11/02/22 11/12/22 Vinh Collins, albuterol (2.5 MG/3ML) 0.083% nebulizer solution 2.5 mg. 03/23/22 Historical Provider, albuterol 108 (90 Base) MCG/ACT inhaler INHALE 2 PUFFS FOUR TIMES DAILY NEEDED FOR WHEEZING 03/23/22 Historical Provider, amitriptyline (Elavil) 100 MG tablet 08/09/22 Historical Provider, budesonide (Pulmicort) 0.25 MG/2ML nebulizer solution 12/23/21 Historical Provider, budesonide-formoterol (Symbicort) 160-4.5 MCG/ACT inhaler Inhale 2 puffs in the morning and 2 puffsin the evening. Historical Provider, cholecalciferol (Vitamin D-3) 1.25 MG (80354 UT) capsule Take by mouth 1 (one) time per week. 03/23/22 Historical Provider, citalopram (CeleXA) 40 MG tablet Take 40 mg by mouth in the morning. 03/23/22 Historical Provider, cyclobenzaprine (Flexeril) 10 MG tablet Take 10 mg by mouth Nightly. 07/19/15 Historical Provider, Eliquis 5 MG tablet take 2 tablets by mouth TONIGHT, THEN 2 TABLETS TWICE A DAY FOR 5... (REFER TO PRESCRIPTION NOTES). 09/05/22 Historical Provider, fluticasone (Flonase) 50 MCG/ACT nasal spray 1 spray. Historical Provider, gabapentin (Neurontin) 300 MG capsule Take 1 capsule (300 mg) by mouth Nightly. 11/02/22 12/02/22 Vinh Collins DO Lidocaine 4 % patch Apply 1 patch topically daily. Do not start before November 03, 2022. 11/03/22 Vinh Collins DO omeprazole (PriLOSEC) [address] capsule Take 1 capsule by mouth in the morning. 07/12/15 Historical ProviderMD oxyCODONE (Roxicodone) 5 MG immediate release tablet Take 1 tablet (5 mg) by mouth every 4 hours asneeded for moderate pain (4-6) for up to 5 days. 11/02/22 11/07/22 Vinh Collins DO tiotropium (Spiriva) [address] 18 mcg into inhaler and inhale in the morning.Historical Provider, CURRENT HOSPITAL MEDICATIONS Current Facility-Administered Medications: acetaminophen (Tylenol) tablet 650 mg, 650 mg, Oral, q6h PRN, 650 mg at 11/15/22 0821 OR acetaminophen (Tylenol) suppository 650 mg, 650 mg, Rectal, q6h PRN, Maged Wilder MD albuterol (2.5 MG/3ML) 0.083% nebulizer solution 2.5 mg, 2.5 mg, Nebulization, q4h PRN, Maged Wilder MD amitriptyline (Elavil) tablet 25 mg, 25 mg, Oral, Nightly, Maged Wilder MD, 25 mg at 11/15/222034 budesonide (Pulmicort) 0.5 MG/2ML nebulizer solution 0.5 mg, 0.5 mg, Nebulization, BID PRN, Maged Wilder MD cefTRIAXone (Rocephin) 2,000 mg in dextrose 5 % 50 mL IVPB Mini-Bag Plus, 2,000 mg, IntraVENous, q24h, Maged Wilder MD, Stopped at 11/15/22 160 citalopram (CeleXA) tablet 20 mg, 20 mg, Oral, Daily, Maged Wilder MD, 20 mg at 11/15/22 0802 cyclobenzaprine (Flexeril) tablet 10 mg, 10 mg, Oral, Nightly, Maged Wilder MD, 10 mg at 11/15/222034 ergocalciferol (Vitamin D2) capsule 1.25 mg, 50,000 Units, Oral, Weekly, Maged Wilder MD, 1.25 mg at 11/12/22 104 fluticasone (Flonase) nasal spray 1 spray, 1 spray, Each Nostril, BID, Maged Wilder MD, 1 spray at 11/15/222036 influenza vac subunit quadrivalent (Flucelvax) injection 0.5 mL, 0.5 mL, IntraMUSCular, Once, Maged Wilder MD Lidocaine 4 % patch 1 patch, 1 patch, Topical, Daily, Maged Wilder MD, 1 patch at 11/13/22 0935 mometasone-formoterol (Dulera 100) 100-5 MCG/ACT inhaler 2 puff, 2 puff, Inhalation, BID, Maged Wilder MD, 2 puff at 11/15/222036 morphine sulfate (PF) injection 4 mg, 4 mg, IntraVENous, q4h PRN, Maged Wilder MD, 4 mg at 11/16/22 0525 ondansetron ODT (Zofran-ODT) disintegrating tablet 4 mg, 4 mg, Oral, q8h PRN OR ondansetron (Zofran) injection 4 mg, 4 mg, IntraVENous, q6h PRN, Maged Wilder MD oxyCODONE (Roxicodone) immediate release tablet 10 mg, 10 mg, Oral, q4h PRN, Maged Wilder MD, 10 mg at 11/16/22 0135 pantoprazole (ProtoNix) EC tablet 20 mg, 20 mg, Oral, qAM AC, Maged Wilder MD, 20 mg at 11/16/22 0525 polyethylene glycol (PEG) 3350 (Miralax) packet 17 g, 17 g, Oral, Daily, César Schneider MD, 17 g at 11/15/22 1525 senna-docusate sodium (Senokot-S) 8.6-50 MG tablet 2 tablet, 2 tablet, Oral, Nightly, César Schneider MD sodium chloride 0.9 % infusion, 5-250 mL/hr, IntraVENous, PRN, Maged Wilder MD sodium chloride 0.9% (NS) flush 5-40 mL, 5-40 mL, IntraVENous, q12h, Maged Wilder MD, 10 mL at 11/15/22 1900 sodium chloride 0.9% (NS) flush 5-40 mL, 5-40 mL, IntraVENous, PRN, Maged Wilder MD tiotropium (Spiriva) 18 MCG per inhalation capsule 18 mcg, 1 capsule, Inhalation, Daily, Maged Dempsey MD, 18 mcg at 11/13/22 0935 ALLERGIES: Amlodipine, Clonazepam, Ketamine, Lisinopril, and Vancomycin SOCIAL HISTORY: Social History Socioeconomic History Marital status: Spouse name: Not on file Number of children: Not on file Years of education: Not on file Highest education level: Not on file Occupational History Not on file Tobacco Use Smoking status: Former Packs/day: 0.15 Types: Cigarettes Quit date: 10/01/1981 Years since quittin.1 Smokeless tobacco: Never Substance and Sexual Activity Alcohol use: Yes Alcohol/week: 0.0 standard drinks Drug use: No Sexual activity: Not on file Other Topics Concern Not on file Social History Narrative Has been in rehab facility in [place] Lives alone, son close Friends help Social Determinants of Health Financial Resource Strain: Not on file Food Insecurity: Not on file Transportation Needs: Not on file Physical Activity: Not on file Stress: Not on file Social Connections: Not on file Intimate Partner Violence: Not At Risk Fear of Current or Ex-Partner: No Emotionally Abused: No Physically Abused: No Sexually Abused: No Housing Stability: Not on file FAMILY HISTORY: Family History Problem Relation Name Age of Onset Pancreatic cancer Mother Pancreatic cancer Father Further Family History is noncontributory to this injury. REVIEW OF SYSTEMS: Review of Systems - General ROS: negative for - chills, fatigue, fever, malaise or night sweats Psychological ROS: negative Ophthalmic ROS: negative ENT ROS: negative for - headaches or sore throat Hematological and Lymphatic ROS: negative for - bleeding problems or blood clots Respiratory ROS: no cough, shortness of breath, or wheezing Cardiovascular ROS: no chest pain or dyspnea on exertion Gastrointestinal ROS: negative Musculoskeletal ROS: See HPI Neurological ROS: negative for - bowel and bladder control changes, gait disturbance or numbness/tingling All other systems reviewed and are negative VITALS: Vitals: 11/15/22 0800 11/15/22 2104 11/16/22 0018 11/16/22 0521 BP: 108/71 109/75 126/78 137/85 BP Location: Left arm Right arm Patient Position: Lying Lying Pulse: 86 89 75 74 Resp: 18 16 20 18 Temp: 36.6 C (97.8 F) 36.4 C (97.6 F) 36.2 C (97.2 F) 36.4 C (97.6 F) TempSrc: Temporal Temporal Temporal Temporal SpO2: 95% 94% 94% 95% Weight: Height: PHYSICAL EXAM: GENERAL: Patient is well developed/well nourished in NAD. A+O x 4 MOOD AND AFFECT: Calm appropriate to situation GAIT AND STATION: Patient is in bed COORDINATION and BALANCE: Patient is grossly coordinated LYMPHADENOPATHY: none on examination of the affected extremity(s) LLE INSPECTION SKIN: Wound vacuum intact and suction intact. Dressings are clean/dry/intact. NEUROLOGICAL: SILT intact to stump MOTOR: +hip flexion VASCULAR: Stump is warm and well-perfused LABS: CBC: Lab Results Component Value Date WBC 11.8 (H) 11/15/2022 RBC 3.42 (L) 11/15/2022 BMP: Lab Results Component Value Date GLUCOSE 166 (H) 11/15/2022 CO2 28 11/15/2022 BUN 22 (H) 11/15/2022 CREATININE 0.71 11/15/2022 CALCIUM 8.9 11/15/2022 PT/INR: Lab Results Component Value Date INR 1.0 11/16/2022 Type and Screen: Lab Results Component Value Date RH POS 11/14/2022 CRP: No results found for: CRP ESR: No results found for: SEDRATE HgBA1c: No components found for: LABA1C The above labs were reviewed by me. Assessment Siobhan is a 62 y.o.female with surgical site infection, status post left above- knee amputation 10/31/2022, status post I&D with wound VAC application 11/11/2022, rpt I&D 11/14 Plan -Return to OR for repeat I&D/closure 11/[address] Bassett -Maintain wound vac, monitor output; no need to change wound vacuum, as this will be removed intraoperatively -Multimodal pain control -NWB LLE -Elevate -IV ancef until return to OR, in process -Cleared -PT/OT -NPO -DVT ppx per primary, Hold anticoagulation in anticipation of surgery tomorrow -Pain/medical management per primary -Ortho to follow. Please page on-call resident with questions/concerns * Julia Cole, PT - 11/15/2022 2:19 PM EST Physical Therapy Facility/Department: Physical Therapy Initial Evaluation NAME: Siobhan Haas : 1960 Date of Service: 11/15/2022 Discharge Recommendations: Facility based therapy PT Equipment Recommendations Equipment Needed: No Assessment Assessment: Patient presents with weakness and impaired balance and would benefit from PT intervention to improve function. Patient is presently requiring min to mod assist for bed mobility. She would benefit from continued PT intervention to progress mobility with use of slide board and wheelchair. Recommend facility based PT at discharge. Performance Deficits/Impairments: Decreased functional mobility , Decreased balance, Decreased strength Decision Making: High Complexity Requires PT Follow-Up: Yes Treatment Initiated : FA Activity Tolerance Activity Tolerance: Patient Tolerated treatment well Patient Diagnosis(es): The encounter diagnosis was Surgical wound infection. 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 ([facility]) (07/27/2020), Asthma, Cellulitis, Constipation, Depression, Fibromyalgia, GERD (gastroesophageal reflux disease), right BKA([facility]) ([facility]), Hypertension, Morbidly obese ([facility]) ([facility]) (02/03/2019), On home O2, FAY treatedwith BiPAP, Osteoarthritis, Osteomyelitis of right foot ([facility]), Seasonal allergies, Shortness of breath, URSULA (stress urinary incontinence, female), and Vertigo. She has no past medical history of Difficult intubation, PONV (postoperative nausea and vomiting), or Prolonged emergence from general anesthesia. has a past surgical history that includes Lipoma resection (Right, 2014); Other surgical history (Left, 11/19/2021); Breast surgery (2006); Other surgical history (09/21/2016); Other surgical history(Right, 03/07/2019); Other surgical history (10/27/2021); Colonoscopy; Wound debridement (Left, 10/28/2021); Joint replacement; Belt abdominoplasty; Foot surgery (Right, 02/11/2019); Other surgical history (07/27/2020); Colonoscopy; Leg Surgery (Left, 01/24/2022); Total knee arthroplasty (Left, 2012); Abscess drainage (Right, 08/07/2020); Ankle surgery (Left, 12/19/2021); Foot surgery (Right, 2018); Foot surgery (Right, 04/08/2019); Other surgical history; [place] tooth extraction; Other surgical history (Right, 04/02/2019); Incontinence surgery (11/15/2015); Other surgical history (Right, 04/22/2019); Other surgical history (Right, 05/06/2019); orthopedic surgery (Right, 04/01/2019); Foot surgery (Right, 04/24/2019); Foot surgery (Left, 08/04/2021); Hysterectomy (1996); and Tonsillectomy. Restrictions Restrictions/Precautions Restrictions/Precautions: Fall Risk, Weight Bearing Required Braces or Orthoses?: No (Patient is in the process of having RLE prosthesis refitted with new suction socket rather than pin attachment.) Lower Extremity Weight Bearing Restrictions Left Lower Extremity Weight Bearing: Non Weight Bearing Position Activity Restriction Other position/activity restrictions: LLE wound vac Vision/Hearing Hearing: Functional/adequate for paticipation in therapy Cognition/Orientation Overall Cognitive Status: WFL Overall Orientation Status: Within Functional Limits Subjective General Chart Reviewed: Yes Patient Assessed for Rehabilitation Services: Yes Additional Pertinent Hx: R BKA 2019, L AKA 10/31/22 Response To Previous Treatment: Not applicable Family / Caregiver Present: No Diagnosis: surgical wound infection, 11/11/22 I&D L AKA with wound vac; 11/14/22 I&D L AKA with wound vac Follows Commands: Within Functional Limits Other (Comment): Plan is for repeat I&D L AKA with closure 11/16/22. Subjective Subjective: Patient in bed. She is agreeable to PT. Pain Assessment Pain Score: (Patient reports some pain at surgical incision on LLE but she did not quantify pain level.) Oxygen Therapy Oxygen Therapy: None (Room air) Pre Treatment Pain Screening Intervention List: Patient able to continue with treatment Social/Functional History Social/Functional History Type of Home: Facility Home Equipment: Wheelchair-manual, Wheelchair-electric Ambulation Assistance: (Prior to L BKA in October 2022, patient was ambulatory with RLE prosthesis and no assistive device.) Transfer Assistance: Independent (Prior to L AKA in October 2022.) Objective AROM RLE (degrees) RLE AROM: WFL AROM LLE (degrees) LLE General AROM: hip flex WFL Strength RLE Comment: 4/5 Strength LLE Comment: NT Tone RLE RLE Tone: Normotonic Tone LLE LLE Tone: Normotonic Bed mobility Rolling to Left: Minimal assistance (with bed rail) Rolling to Right: Minimal assistance (with bed rail) Supine to Sit: Moderate assistance Sit to Supine: Minimal assistance Scooting: (supine scoot max assist of 2) Transfers Comment: bed to/from chair with slide board NT today. Patient does not feel ready, so, held until after sx on 11/16/22. Balance Sitting - Static: Good Sitting - Dynamic: +, Fair Comments: Patient sat edge of bed about 10 minutes with SBA for static sitting. She completed lateral scooting with mod assist to left side. She was able to complete weight shifts to L and R side with SBA to allow her to lean on her elbows and required min to mod assist to return from sidelying on elbow to neutral sit. Plan Times per Week: 5-7 Plan Weeks: 2 Current Treatment Recommendations: Strengthening, Balance Training, Functional Mobility Training, Transfer Training, Safety Education & Training, Wheelchair Mobility Training Safety Safety Devices Safety Devices in Place: Yes Type of Devices: Call light within reach, Left in bed, Nurse notified Restraints Restraints Initially in Place: No Outcomes Score AM-PAC Score AM-PAC Inpatient Mobility Raw Score: 6 Mobility Inpatient CMS G-Code Modifier: CN Goals Encounter Problems Encounter Problems (Active) Balance Patient will maintain dynamic sitting balance with SBA when given moderate challenges in order to demonstrate improved postural control and prepare for out of bed mobility. Start: 11/15/22 Expected End: 11/29/22 Mobility Patient will propel the wheelchair for 50 ft and supervision in order to improve safety and independence with functional mobility. Start: 11/15/22 Expected End: 11/29/22 Transfers Patient will perform bed mobility with supervision in order to improve independence and prepare forout of bed mobility. Start: 11/15/22 Expected End: 11/29/22 Patient will complete functional transfer with sliding board with min assist bed to/from drop arm chair or wheelchair. Start: 11/15/22 Expected End: 11/29/22 Education Education Given To: Patient Education Provided: PT Role, Plan of Care Education Method: Verbal Barriers to Learning: None Education Outcome: Verbalized understanding Therapy Time Individual Co-treatment Time In 1321 Time Out 1352 Minutes 31 Timed Code Treatment Minutes: 10 Minutes (FA) Patient s Physical Therapy Plan of Care supervision is transferred to [facility] Department Physical Therapist. PPE worn in accordance with [facility] guidelines. Julia Cole PT * César Schneider MD - 11/15/2022 9:25 AM EST Images from the original note were not included. Hospitalist Progress Note 11/15/2022 [id number]: Please page IMS night Hospitalist for any issues. Subjective: Admit Date: 11/10/2022 PCP: Oj Maddox Room#: [id number] A Brief hospital course: Patient admitted 11/10/2022 for L leg cellulitis. Chronic medical conditions include asthma, HTN, class III obesity, FAY, MDD. Initially presented with concern for infection in the LLE residual limb, had L AKA performed 10/31/22. At ortho follow-up was noted to have erythema ofthe surgical site and they were concerned about developing cellulitis and possibly deep tissue infection, so she was directed to the ED. Hospital course thus far: admitted to medicine with ortho consult, antibx initially held in order to improve yield from OR cultures. Went to OR (11/11) for LLE I&D and wound vac application, with plan to return for wound closure. Following I&D she was star adam on cefazolin, however then changed to ceftriaxone due E coli growth on wound culture and its sensitivities. Returned to OR (11/14) for repeat I&D, found to have need for additional I&D; wound vac continued. Interval History: No overnight events. Increased leg pain following yesterday's I&D but doing okay this AM. Does endorse feeling constipated. 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) 07/27/2020 Asthma Cellulitis Constipation Depression Fibromyalgia GERD (gastroesophageal reflux disease) Hx of right BKA ([facility]) ([facility]) Hypertension Morbidly obese ([facility]) ([facility]) 02/03/2019 BMI 50.52 On home O2 FAY treated with BiPAP Osteoarthritis Osteomyelitis of right foot (HCC) SCHEDULED FOR THE SURGERY ON 02/11/2019 Seasonal allergies Shortness of breath URSULA (stress urinary incontinence, female) Vertigo Objective: Vitals: BP 108/71 (BP Location: Left arm, Patient Position: Lying) Pulse 86 Temp 36.6 C (97.8 F) (Temporal) Resp 18 Ht 5' 7 (1.702 m) Wt (!) 346 lb (157 kg) SpO2 95% BMI 54.19 kg/m Pulse Ox: SpO2 Av.5 % Min: 91 % Max: 97 % Supplemental O2: O2 Flow Rate (L/min): 3 L/min General appearance: NAD, cooperative with exam, obese. Respiratory: CTAB with normal effort. Cardiovascular: RRR, no M/R/G. No pedal edema. Peripheral pulses 2+. Abdomen: Soft, NT/ND, NBS. Musculoskeletal: RLE with BKA, LLE with AKA. Wound vac at LLE residual limb, al removed from incision. Skin: Skin appropriately warm, turgor and color unremarkable. No lesions noted except as noted above. Neurologic: Grossly neurologically intact. Answering questions & following directions appropriately. LABS: HEME: Recent Labs 11/13/22 0045 11/15/22 0707 WBC 7.3 11.8* RBC 3.56* 3.42* HGB 9.1* 8.8* HCT 28.8* 27.7* MCV 80.9 80.9 RDW 22.7* 22.2* PLT 384 350 CHEM: Recent Labs 11/15/22 0825 NA 133* K 4.2 CL 100 CO2 28 BUN 22* CREATININE 0.71 EGFR >90.0 GLUCOSE 166* CALCIUM 8.9 ANIONGAP 5 LIVER: No results for input(s): AST, ALT, BILITOT, ALKPHOS, ALBUMIN, PROT, GGT in the last 72 hours. COAG: No results for input(s): PROTIME, INR, PTT in the last 72 hours. CARDIAC: No results for input(s): TROPONINI in the last 72 hours. No results found for: BNP No results for input(s): POCGLU in the last 72 hours. No results for input(s): LACTATE in the last 72 hours. No results found for: DDIMER, PROCAL, COVID19, HGBA1C, TSH, [id number], FOLATE, CHOL, TRIG, HDL, LDLCALC Urine Culture: No results found for this or any previous visit. Blood Culture: No results found for this or any previous visit. Medications: Current Facility-Administered Medications: acetaminophen (Tylenol) tablet 650 mg, 650 mg, Oral, q6h PRN, 650 mg at 11/15/22 0821 OR acetaminophen (Tylenol) suppository 650 mg, 650 mg, Rectal, q6h PRN, Maged Wilder MD albuterol (2.5 MG/3ML) 0.083% nebulizer solution 2.5 mg, 2.5 mg, Nebulization, q4h PRN, Maged Wilder MD amitriptyline (Elavil) tablet 25 mg, 25 mg, Oral, Nightly, Maged Wilder MD, 25 mg at 11/14/222037 budesonide (Pulmicort) 0.5 MG/2ML nebulizer solution 0.5 mg, 0.5 mg, Nebulization, BID PRN, Maged Wilder MD cefTRIAXone (Rocephin) 2,000 mg in dextrose 5 % 50 mL IVPB Mini-Bag Plus, 2,000 mg, IntraVENous, q24h, Maged Wilder MD, Stopped at 11/14/22 163 citalopram (CeleXA) tablet 20 mg, 20 mg, Oral, Daily, Maged Wilder MD, 20 mg at 11/15/22 0802 cyclobenzaprine (Flexeril) tablet 10 mg, 10 mg, Oral, Nightly, Maged Wilder MD, 10 mg at 11/14/222037 ergocalciferol (Vitamin D2) capsule 1.25 mg, 50,000 Units, Oral, Weekly, Maged Wilder MD, 1.25 mg at 11/12/22 1047 fluticasone (Flonase) nasal spray 1 spray, 1 spray, Each Nostril, BID, Maged Wilder MD, 1 spray at 11/15/22 0802 influenza vac subunit quadrivalent (Flucelvax) injection 0.5 mL, 0.5 mL, IntraMUSCular, Once, Maged Wilder MD Lidocaine 4 % patch 1 patch, 1 patch, Topical, Daily, Maged Wilder MD, 1 patch at 11/13/22 0935 mometasone-formoterol (Dulera 100) 100-5 MCG/ACT inhaler 2 puff, 2 puff, Inhalation, BID, Maged Wilder MD, 2 puff at 11/15/22 0755 morphine sulfate (PF) injection 4 mg, 4 mg, IntraVENous, q4h PRN, Maged Wilder MD, 4 mg at 11/15/22 0007 ondansetron ODT (Zofran-ODT) disintegrating tablet 4 mg, 4 mg, Oral, q8h PRN OR ondansetron (Zofran) injection 4 mg, 4 mg, IntraVENous, q6h PRN, Maged Wilder MD oxyCODONE (Roxicodone) immediate release tablet 10 mg, 10 mg, Oral, q4h PRN, Maged Wilder MD, 10 mg at 11/15/22 0821 pantoprazole (ProtoNix) EC tablet 20 mg, 20 mg, Oral, qAM AC, Maged Wilder MD, 20 mg at 11/15/22 0638 polyethylene glycol (PEG) 3350 (Miralax) packet 17 g, 17 g, Oral, Daily PRN, Maged Wilder MD sodium chloride 0.9 % infusion, 5-250 mL/hr, IntraVENous, PRN, Maged Wilder MD sodium chloride 0.9% (NS) flush 5-40 mL, 5-40 mL, IntraVENous, q12h, Maged Wilder MD, 10 mL at 11/15/22 0638 sodium chloride 0.9% (NS) flush 5-40 mL, 5-40 mL, IntraVENous, PRN, Maged Wilder MD tiotropium (Spiriva) 18 MCG per inhalation capsule 18 mcg, 1 capsule, Inhalation, Daily, Maged Dempsey MD, 18 mcg at 11/13/22 0935 Medical Decision Making Acute, acute on chronic, unstable/uncontrolled chronic problems: LLE post-op infection, s/p I&D and wound vac (11/11, 11/14) Post-op blood loss anemia, stable/uptrending Stable chronic problems affecting care, new non-acute diagnoses: Asthma HTN Class III obesity FAY MDD As a result of the above findings & factors, the following mgmt was pursued: - ortho consulted, appreciate recs - plan to return to OR on 11/16 for next I&D - NWB LLE - pain control (acetaminophen PO prn, oxycodone PO prn, morphine IV prn) - was not requiring morphine yesterday, however increased pain overnight so will leave order in place - antibiotic - CTX (11/13-present); switch to cefdinir at discharge, plan for 10 days of therapy starting with final I&D (so last day is TBD) - cefazolin (11/11-11/13)--culture with E Coli with intermediate resistance to this - scheduled Senokot & Miralax - PT/OT/CM/SW - delirium precautions: increase activity - DVT prophylaxis: encourage ambulation (encourage activity d/t amputee status) Complexity: Acute, complicated injury (MOD). Multiple stable chronic illnesses (MOD). Risk: Use of parenteral controlled substances (HIGH). Prescription drug management (MOD). Advance Directive: Full Code Anticipated Discharge - Date - TBD - Location - Skilled Facility ([facility]) - Pending the following - at least one more I&D César Schneider MD Division of Hospitalist Medicine [place]patient Medical Services[place] [place]: Medium ([id number]) * Joanna Leslie PA-C - 11/15/2022 8:35 AM EST Orthopedic Surgery Progress Note Discussed medical optimization status for planned orthopedic procedure tomorrow with Dr. Keanu Schneider. Dr. Schneider states that patient remains medically optimized to proceed with planned procedure. Ortho to follow. Please page school transportation director resident with any questions or concerns. * Elise Warren MD - 11/15/2022 7:03 AM EST Images from the original note were not included. Orthopedic Progress Note Name: Siobhan Haas Date:11/15/2022 Attending:César Schneider MD Subjective Patient is doing well. She did not sleep well overnight. She denies fever, chills, and n/v. She states the block worked well in her upper thigh, but it did not decrease the pain around her surgical site. She had no further questions about her upcoming surgery. 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) Cellulitis of lower leg Back pain Tear of peroneal tendon Depressive disorder Hemorrhage of rectum and anus HTN (hypertension) Pansystolic murmur Chest wall pain Asthma Asthma with acute exacerbation Pain from implanted hardware Obstructive sleep apnea syndrome Chronic obstructive lung disease (HCC) Morbid obesity (CMS/HCC) ([facility]) Migraine headache Vitamin D deficiency Viral upper respiratory tract infection 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HCC) Swelling of left lower extremity Shortness of breath Seasonal allergies Superficial incisional surgical site infection Rheumatoid arthritis (HCC) Restless legs syndrome Anxiety Arthritis of right subtalar joint Attention deficit disorder of adult with hyperactivity Benign essential hypertension Bronchospasm Contusion of knee Edema of lower extremity Impaired fasting glucose Acquired deformity of left toe History of tonsillectomy Chronic knee pain after total replacement of left knee joint Weakness of left lower extremity History of hysterectomy Fibromyositis Increased body mass index (BMI) Gastroesophageal reflux disease Hiatal hernia Callosity senior care (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 antibiotics Left leg cellulitis Dehiscence of closure of skin, sequela Necrotizing soft tissue infection Infected wound Osteomyelitis ([facility]) Hematoma Cellulitis of right foot Post-op pain Osteomyelitis of right foot ([facility]) Open wound of right foot MSSA (methicillin susceptible Staphylococcus aureus) infection Right foot infection Hardware complicating wound infection (CMS/HCC) ([facility]) Right foot pain Postoperative pain Cellulitis Lymphedema Stump pain ([facility]) Abrasion of lower leg with infection, initial encounter PE (pulmonary thromboembolism) ([facility]) Surgical wound infection HLD (hyperlipidemia) PAST SURGICAL HISTORY Past Surgical History: Procedure Laterality Date ABCESS DRAINAGE Right 08/07/2020 I&D of right BKA hematoma ANKLE SURGERY Left 12/19/2021 ankle I and D with placement of wound vac - dr alyssa PARKS ABDOMINOPLASTY BREAST SURGERY 2006 and abdomin removal for excess COLONOSCOPY COLONOSCOPY EXTREMITY SURGERY Left 01/24/2022 debridement necrotizing fasciitis LLE, wound vac FOOT SURGERY Right 02/11/2019 FOOT SURGERY Right 2019 [place] FOOT SURGERY Right 04/08/2019 I&D right foot with antibiotic spacer FOOT SURGERY Right 04/24/2019 I&D;, external fixator FOOT SURGERY Left 08/04/2021 peroneus longus tenolysis - Dr Gamino HYSTERECTOMY 1997 INCONTINENCE SURGERY 11/15/2015 synthetic mid urethral sling,cystoscopy JOINT REPLACEMENT LIPOMA RESECTION Right 2015 shoulder ORTHOPEDIC SURGERY Right 04/01/2019 I&D with removal hardware and antibiotic spacer placed OTHER SURGICAL HISTORY Left 11/19/2021 I+D L ankle OTHER SURGICAL HISTORY 09/21/2016 INTERSTIM STAGE II, COMPLEX ANALYSIS OF NEUROSTIMULATOR OTHER SURGICAL HISTORY Right 03/07/2019 debridement of right foot OTHER SURGICAL HISTORY 10/27/2021 Irrigation and debridement of left lower extremity OTHER SURGICAL HISTORY 07/27/2020 Excision of scar tissue, neuroma RIGHT below knee amputation OTHER SURGICAL HISTORY NERVE BLOCKS FROM PAIN MANAGEMENT OTHER SURGICAL HISTORY Right 04/02/2019 R foot skin graft/flap, wound debridement/Wound vac removal OTHER SURGICAL HISTORY Right 04/22/2019 right foot I and D OTHER SURGICAL HISTORY Right 05/06/2019 Right Below Knee Amputation (CPT 42464), #2 Excisional debridement right iliac crest (wound 7 cm length, 3 cm width, 7 cm depth) TONSILLECTOMY (HISTORICAL) TOTAL KNEE ARTHROPLASTY Left 2012 ARTHROSCOPY FIRST AND KNEE REPLACED WISDOM TOOTH EXTRACTION WOUND DEBRIDEMENT Left 10/28/2021 irrigation and debridment LLE HOME MEDICATIONS Prior to Admission medications Medication Sig Start Date End Date Taking? Authorizing Provider acetaminophen (Tylenol) 325 MG tablet Take 2 tablets (650 mg) by mouth every 4 hours for 10 days. 11/02/22 11/12/22 Vinh Collins DO albuterol (2.5 MG/3ML) 0.083% nebulizer solution 2.5 mg. 03/23/22 Historical Provider, albuterol 108 (90 Base) MCG/ACT inhaler INHALE 2 PUFFS FOUR TIMES DAILY NEEDED FOR WHEEZING 03/23/22 Historical Provider, amitriptyline (Elavil) 100 MG tablet 08/09/22 Historical Provider, budesonide (Pulmicort) 0.25 MG/2ML nebulizer solution 12/23/21 Historical Provider, budesonide-formoterol (Symbicort) 160-4.5 MCG/ACT inhaler Inhale 2 puffs in the morning and 2 puffsin the evening. Historical Provider, cholecalciferol (Vitamin D-3) 1.25 MG (64580 UT) capsule Take by mouth 1 (one) time per week. 03/23/22 Historical Provider, citalopram (CeleXA) 40 MG tablet Take 40 mg by mouth in the morning. 03/23/22 Historical Provider, cyclobenzaprine (Flexeril) 10 MG tablet Take 10 mg by mouth Nightly. 07/19/15 Historical Provider, MD Yates 5 MG tablet take 2 tablets by mouth TONIGHT, THEN 2 TABLETS TWICE A DAY FOR 5... (REFER TO PRESCRIPTION NOTES). 09/05/22 Historical Provider, fluticasone (Flonase) 50 MCG/ACT nasal spray 1 spray. Historical Provider, gabapentin (Neurontin) 300 MG capsule Take 1 capsule (300 mg) by mouth Nightly. 11/02/22 12/02/22 Vinh Collins DO Lidocaine 4 % patch Apply 1 patch topically daily. Do not start before November 03, 2022. 11/03/22 Vinh Collnis, omeprazole (PriLOSEC) [address] capsule Take 1 capsule by mouth in the morning. 07/12/15 Historical Provider, oxyCODONE (Roxicodone) 5 MG immediate release tablet Take 1 tablet (5 mg) by mouth every 4 hours asneeded for moderate pain (4-6) for up to 5 days. 11/02/22 11/07/22 Vinh Collins DO tiotropium (Spiriva) [address] 18 mcg into inhaler and inhale in the morning.Historical Provider, CURRENT HOSPITAL MEDICATIONS Current Facility-Administered Medications: acetaminophen (Tylenol) tablet 650 mg, 650 mg, Oral, q6h PRN, 650 mg at 11/14/22 1559 OR acetaminophen (Tylenol) suppository 650 mg, 650 mg, Rectal, q6h PRN, Maged Wilder MD albuterol (2.5 MG/3ML) 0.083% nebulizer solution 2.5 mg, 2.5 mg, Nebulization, q4h PRN, Maged Wilder MD amitriptyline (Elavil) tablet 25 mg, 25 mg, Oral, Nightly, Maged Wilder MD, 25 mg at 11/14/222037 budesonide (Pulmicort) 0.5 MG/2ML nebulizer solution 0.5 mg, 0.5 mg, Nebulization, BID PRN, Maged Wilder MD cefTRIAXone (Rocephin) 2,000 mg in dextrose 5 % 50 mL IVPB Mini-Bag Plus, 2,000 mg, IntraVENous, q24h, Maged Wilder MD, Stopped at 11/14/22 1632 citalopram (CeleXA) tablet 20 mg, 20 mg, Oral, Daily, Maged Wilder MD, 20 mg at 11/14/22 0834 cyclobenzaprine (Flexeril) tablet 10 mg, 10 mg, Oral, Nightly, Maged Wilder MD, 10 mg at 11/14/222037 ergocalciferol (Vitamin D2) capsule 1.25 mg, 50,000 Units, Oral, Weekly, Maged Wilder MD, 1.25 mg at 11/12/22 104 fluticasone (Flonase) nasal spray 1 spray, 1 spray, Each Nostril, BID, Maged Wilder MD, 1 spray at 11/14/222038 influenza vac subunit quadrivalent (Flucelvax) injection 0.5 mL, 0.5 mL, IntraMUSCular, Once, Maged Wilder MD Lidocaine 4 % patch 1 patch, 1 patch, Topical, Daily, Maged Wilder MD, 1 patch at 11/13/22 0935 mometasone-formoterol (Dulera 100) 100-5 MCG/ACT inhaler 2 puff, 2 puff, Inhalation, BID, Maged Wilder MD, 2 puff at 11/14/222038 morphine sulfate (PF) injection 4 mg, 4 mg, IntraVENous, q4h PRN, Maged Wilder MD, 4 mg at 11/15/22 0007 ondansetron ODT (Zofran-ODT) disintegrating tablet 4 mg, 4 mg, Oral, q8h PRN OR ondansetron (Zofran) injection 4 mg, 4 mg, IntraVENous, q6h PRN, Maged Wilder MD oxyCODONE (Roxicodone) immediate release tablet 10 mg, 10 mg, Oral, q4h PRN, Maged Wilder MD, 10 mg at 11/15/22 0348 pantoprazole (ProtoNix) EC tablet 20 mg, 20 mg, Oral, qAM AC, Maged Wilder MD, 20 mg at 11/15/22 0638 polyethylene glycol (PEG) 3350 (Miralax) packet 17 g, 17 g, Oral, Daily PRN, Maged Wilder MD sodium chloride 0.9 % infusion, 5-250 mL/hr, IntraVENous, PRN, Maged Wilder MD sodium chloride 0.9% (NS) flush 5-40 mL, 5-40 mL, IntraVENous, q12h, Maged Wilder MD, 10 mL at 11/15/22 0638 sodium chloride 0.9% (NS) flush 5-40 mL, 5-40 mL, IntraVENous, PRN, Maged Wilder MD tiotropium (Spiriva) 18 MCG per inhalation capsule 18 mcg, 1 capsule, Inhalation, Daily, Maged Dempsey MD, 18 mcg at 11/13/22 0935 ALLERGIES: Amlodipine, Clonazepam, Ketamine, Lisinopril, and Vancomycin SOCIAL HISTORY: Social History Socioeconomic History Marital status: Spouse name: Not on file Number of children: Not on file Years of education: Not on file Highest education level: Not on file Occupational History Not on file Tobacco Use Smoking status: Former Packs/day: 0.15 Types: Cigarettes Quit date: 10/01/1981 Years since quittin.1 Smokeless tobacco: Never Substance and Sexual Activity Alcohol use: Yes Alcohol/week: 0.0 standard drinks Drug use: No Sexual activity: Not on file Other Topics Concern Not on file Social History Narrative Has been in rehab facility in [place] Lives alone, son close Friends help Social Determinants of Health Financial Resource Strain: Not on file Food Insecurity: Not on file Transportation Needs: Not on file Physical Activity: Not on file Stress: Not on file Social Connections: Not on file Intimate Partner Violence: Not At Risk Fear of Current or Ex-Partner: No Emotionally Abused: No Physically Abused: No Sexually Abused: No Housing Stability: Not on file FAMILY HISTORY: Family History Problem Relation Name Age of Onset Pancreatic cancer Mother Pancreatic cancer Father Further Family History is noncontributory to this injury. REVIEW OF SYSTEMS: Review of Systems - General ROS: negative for - chills, fatigue, fever, malaise or night sweats Psychological ROS: negative Ophthalmic ROS: negative ENT ROS: negative for - headaches or sore throat Hematological and Lymphatic ROS: negative for - bleeding problems or blood clots Respiratory ROS: no cough, shortness of breath, or wheezing Cardiovascular ROS: no chest pain or dyspnea on exertion Gastrointestinal ROS: negative Musculoskeletal ROS: See HPI Neurological ROS: negative for - bowel and bladder control changes, gait disturbance or numbness/tingling All other systems reviewed and are negative VITALS: Vitals: 11/14/22 1415 11/14/22 1430 11/14/22 1700 11/14/223 BP: 111/68 118/66 126/75 103/73 BP Location: Left arm Left arm Patient Position: Lying Pulse: 75 72 74 82 Resp: 15 18 18 Temp: 37 C (98.6 F) 36.6 C (97.8 F) TempSrc: Temporal SpO2: 95% 96% 95% 94% Weight: Height: PHYSICAL EXAM: GENERAL: Patient is well developed/well nourished in NAD. A+O x 4 MOOD AND AFFECT: Calm appropriate to situation GAIT AND STATION: Patient is in bed COORDINATION and BALANCE: Patient is grossly coordinated LYMPHADENOPATHY: none on examination of the affected extremity(s) LLE INSPECTION SKIN: Wound vacuum intact and suction intact. Dressings are clean/dry/intact. NEUROLOGICAL: SILT intact to stump MOTOR: +hip flexion VASCULAR: Stump is warm and well-perfused LABS: CBC: Lab Results Component Value Date WBC 7.3 11/13/2022 RBC 3.56 (L) 11/13/2022 BMP: No results found for: GLUCOSE, SODIUM, POTASSIUM, CHLORIDE, CO2, BUN, CREATININE, CALCIUM PT/INR: No results found for: PT, INR, APTT Type and Screen: Lab Results Component Value Date RH POS 11/14/2022 CRP: No results found for: CRP ESR: No results found for: SEDRATE HgBA1c: No components found for: LABA1C The above labs were reviewed by me. Assessment Siobhan is a 62 y.o.female with surgical site infection, status post left above- knee amputation 10/31/2022, status post I&D with wound VAC application 11/11/2022, rpt I&D 11/14 Plan -Return to OR for repeat I&D/closure 11/[address] Bassett -Maintain wound vac, monitor output; no need to change wound vacuum, as this will be removed intraoperatively -Multimodal pain control -NWB LLE -Elevate -IV ancef until return to OR, in process -Clearance pending -PT/OT -NPO -DVT ppx per primary, Hold anticoagulation in anticipation of surgery tomorrow -Pain/medical management per primary -Ortho to follow. Please page on-call resident with questions/concerns * César Schneider MD - 11/14/2022 8:32 AM EST Images from the original note were not included. Hospitalist Progress Note 11/14/2022 [id number]: Please page IMS night Hospitalist for any issues. Subjective: Admit Date: 11/10/2022 PCP: Oj Maddox Room#: [id number] A Brief hospital course: Patient admitted 11/10/2022 for L leg cellulitis. Chronic medical conditions include asthma, HTN, class III obesity, FAY, MDD. Initially presented with concern for infection in the LLE residual limb, had L AKA performed 10/31/22. At ortho follow-up was noted to have erythema ofthe surgical site and they were concerned about developing cellulitis and possibly deep tissue infection, so she was directed to the ED. Hospital course thus far: admitted to medicine with ortho consult, antibx initially held in order to improve yield from OR cultures. Went to OR (11/11) for LLE I&D and wound vac application, with plan to return for wound closure. Following I&D she was star adam on cefazolin, however then changed to ceftriaxone due E coli growth on wound culture and its sensitivities. Interval History: Went to OR this AM for repeat I&D and wound vac removal. Seen in afternoon after return, daughter present. No overnight issues, slept well, currently upset because was hopeful that she could be discharged today or tomorrow, but per verbal report provided to her by surgeon willneed to return for at least one more I&D. NPO diet NPO except: Sips of Water with Meds 24HR INTAKE/OUTPUT: Intake/Output Summary (Last 24 hours) at 11/14/2022 0832 Last data filed at 11/14/2022 0500 Gross per 24 hour Intake 125 ml Output 1050 ml Net -925 ml 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) 07/27/2020 Asthma Cellulitis Constipation Depression Fibromyalgia GERD (gastroesophageal reflux disease) Hx of right BKA ([facility]) ([facility]) Hypertension Morbidly obese ([facility]) ([facility]) 02/03/2019 BMI 50.52 On home O2 FAY treated with BiPAP Osteoarthritis Osteomyelitis of right foot ([facility]) SCHEDULED FOR THE SURGERY ON 02/11/2019 Seasonal allergies Shortness of breath URSULA (stress urinary incontinence, female) Vertigo Objective: Vitals: BP (!) 142/71 (BP Location: Left arm) Pulse 90 Temp 36.2 C (97.2 F) (Temporal) Resp 16 Ht 5' 7 (1.702 m) Wt (!) 346 lb (157 kg) SpO2 94% BMI 54.19 kg/m Pulse Ox: SpO2 Av.5 % Min: 93 % Max: 94 % Supplemental O2: O2 Flow Rate (L/min): 3 L/min General appearance: NAD, cooperative with exam, obese. Respiratory: CTAB with normal effort. Cardiovascular: RRR, no M/R/G. No pedal edema. Peripheral pulses 2+. Abdomen: Soft, NT/ND with hypoactive BS. Musculoskeletal: RLE with BKA, LLE with AKA. Wound vac at LLE residual limb, al removed from incision. Skin: Skin appropriately warm, turgor and color unremarkable. No lesions noted except as noted above. Neurologic: Grossly neurologically intact. Answering questions & following directions appropriately. LABS: HEME: Recent Labs 11/12/22 0008 11/13/22 0045 WBC 9.6 7.3 RBC 3.43* 3.56* HGB 8.9* 9.1* HCT 27.5* 28.8* MCV 80.3 80.9 RDW 22.5* 22.7* PLT 375 384 CHEM: Recent Labs 11/12/22 0008 NA 134* K 4.3 CL 101 CO2 25 BUN 18* CREATININE 0.75 EGFR 89.6 GLUCOSE 175* CALCIUM 8.6 ANIONGAP 8 LIVER: No results for input(s): AST, ALT, BILITOT, ALKPHOS, ALBUMIN, PROT, GGT in the last 72 hours. COAG: No results for input(s): PROTIME, INR, PTT in the last 72 hours. CARDIAC: No results for input(s): TROPONINI in the last 72 hours. No results found for: BNP No results for input(s): POCGLU in the last 72 hours. No results for input(s): LACTATE in the last 72 hours. No results found for: DDIMER, PROCAL, COVID19, HGBA1C, TSH, [id number], FOLATE, CHOL, TRIG, HDL, LDLCALC Urine Culture: No results found for this or any previous visit. Blood Culture: No results found for this or any previous visit. Medications: Current Facility-Administered Medications: acetaminophen (Tylenol) tablet 650 mg, 650 mg, Oral, q6h PRN OR acetaminophen (Tylenol) suppository 650 mg, 650 mg, Rectal, q6h PRN, Maged Wilder MD albuterol (2.5 MG/3ML) 0.083% nebulizer solution 2.5 mg, 2.5 mg, Nebulization, q4h PRN, Maged Wilder MD amitriptyline (Elavil) tablet 25 mg, 25 mg, Oral, Nightly, Maged Wilder MD, 25 mg at 11/13/22 193 budesonide (Pulmicort) 0.5 MG/2ML nebulizer solution 0.5 mg, 0.5 mg, Nebulization, BID PRN, Maged Wilder MD cefTRIAXone (Rocephin) 2,000 mg in dextrose 5 % 50 mL IVPB Mini-Bag Plus, 2,000 mg, IntraVENous, q24h, César Schneider MD, Stopped at 11/13/22 1726 citalopram (CeleXA) tablet 20 mg, 20 mg, Oral, Daily, Maged Wilder MD, 20 mg at 11/13/22 0935 cyclobenzaprine (Flexeril) tablet 10 mg, 10 mg, Oral, Nightly, César Schneider MD, 10 mg at 11/13/22 193 ergocalciferol (Vitamin D2) capsule 1.25 mg, 50,000 Units, Oral, Weekly, Maged Wilder MD, 1.25 mg at 11/12/22 1047 fluticasone (Flonase) nasal spray 1 spray, 1 spray, Each Nostril, BID, Maged Wilder MD, 1 spray at 11/13/221935 influenza vac subunit quadrivalent (Flucelvax) injection 0.5 mL, 0.5 mL, IntraMUSCular, Once, Maged Wilder MD Lidocaine 4 % patch 1 patch, 1 patch, Topical, Daily, Maged Wilder MD, 1 patch at 11/13/22934 mometasone-formoterol (Dulera 100) 100-5 MCG/ACT inhaler 2 puff, 2 puff, Inhalation, BID, Maged Wilder MD, 2 puff at 11/13/221935 morphine sulfate (PF) injection 4 mg, 4 mg, IntraVENous, q4h PRN, Kimo Stevens MD, 4 mgat 11/13/221935 ondansetron ODT (Zofran-ODT) disintegrating tablet 4 mg, 4 mg, Oral, q8h PRN OR ondansetron (Zofran) injection 4 mg, 4 mg, IntraVENous, q6h PRN, Maged Wilder MD oxyCODONE (Roxicodone) immediate release tablet 10 mg, 10 mg, Oral, q4h PRN, Kimo Stevens MD, 10 mg at 11/14/22 0520 pantoprazole (ProtoNix) EC tablet 20 mg, 20 mg, Oral, qAM AC, Maged Wilder MD, 20 mg at 11/14/22 0520 polyethylene glycol (PEG) 3350 (Miralax) packet 17 g, 17 g, Oral, Daily PRN, Maged Wilder MD sodium chloride 0.9 % infusion, 5-250 mL/hr, IntraVENous, PRN, Maged Wilder MD sodium chloride 0.9% (NS) flush 5-40 mL, 5-40 mL, IntraVENous, q12h, Maged Wilder MD, 10 mL at 11/13/221934 sodium chloride 0.9% (NS) flush 5-40 mL, 5-40 mL, IntraVENous, PRN, Maged Wilder MD tiotropium (Spiriva) 18 MCG per inhalation capsule 18 mcg, 1 capsule, Inhalation, Daily, Maged Dempsey MD, 18 mcg at 11/13/22934 Medical Decision Making Acute, acute on chronic, unstable/uncontrolled chronic problems: LLE post-op infection, s/p I&D and wound vac (11/11, 11/14) Post-op blood loss anemia, stable/uptrending Stable chronic problems affecting care, new non-acute diagnoses: Asthma HTN Class III obesity FAY MDD As a result of the above findings & factors, the following mgmt was pursued: - ortho consulted, appreciate recs - returned to OR today, likely will need at least one more I&D prior to discharge - NWB LLE - pain control (acetaminophen PO prn, oxycodone PO prn, morphine IV prn) - antibiotic - CTX (11/13-present); switch to cefdinir at discharge, plan for 10 days of therapy starting with final I&D (so last day is TBD) - cefazolin (11/11-11/13)--culture with E Coli with intermediate resistance to this - PT/OT/CM/SW - delirium precautions: increase activity - DVT prophylaxis: encourage ambulation (encourage activity d/t amputee status) Complexity: Acute, complicated injury (MOD). Multiple stable chronic illnesses (MOD). Risk: Use of parenteral controlled substances (HIGH). Prescription drug management (MOD). Advance Directive: Full Code Anticipated Discharge - Date - TBD - Location - Skilled Facility ([facility]) - Pending the following - at least one more I&D César Schneider MD Division of Hospitalist Medicine [place] [place]: Medium ([id number]) * Jose Meng, PT - 11/14/2022 7:31 AM EST Physical Therapy Physical Therapy Evaluation and Treatment Order Received. Plan for return to OR for repeat I&D/closure Tuesday 11/[address] Bassett * Elise Warren MD - 11/14/2022 6:57 AM EST Images from the original note were not included. Orthopedic Progress Note Name: Siobhan Haas Date:11/14/2022 Attending:César Schneider MD Subjective Patient is doing well. She slept comfortably overnight. She denies fever, chills, and SOB. All questions about her upcoming surgery were answered. Objective PAST MEDICAL HISTORY Patient Active Problem List Diagnosis History of right below knee amputation (HCC) BKA stump complication ([facility]) 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 ([facility]) Cellulitis of lower leg Back pain Tear of peroneal tendon Depressive disorder Hemorrhage of rectum and anus HTN (hypertension) Pansystolic murmur Chest wall pain Asthma Asthma with acute exacerbation Pain from implanted hardware Obstructive sleep apnea syndrome Chronic obstructive lung disease ([facility]) Morbid obesity (CMS/HCC) ([facility]) Migraine headache Vitamin D deficiency Viral upper respiratory tract infection 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[facility]) Swelling of left lower extremity Shortness of breath Seasonal allergies Superficial incisional surgical site infection Rheumatoid arthritis ([facility]) Restless legs syndrome Anxiety Arthritis of right subtalar joint Attention deficit disorder of adult with hyperactivity Benign essential hypertension Bronchospasm Contusion of knee Edema of lower extremity Impaired fasting glucose Acquired deformity of left toe History of tonsillectomy Chronic knee pain after total replacement of left knee joint Weakness of left lower extremity History of hysterectomy Fibromyositis Increased body mass index (BMI) Gastroesophageal reflux disease Hiatal hernia Callosity senior care (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 antibiotics Left leg cellulitis Dehiscence of closure of skin, sequela Necrotizing soft tissue infection Infected wound Osteomyelitis ([facility]) Hematoma Cellulitis of right foot Post-op pain Osteomyelitis of right foot ([facility]) Open wound of right foot MSSA (methicillin susceptible Staphylococcus aureus) infection Right foot infection Hardware complicating wound infection (CMS/HCC) ([facility]) Right foot pain Postoperative pain Cellulitis Lymphedema Stump pain ([facility]) Abrasion of lower leg with infection, initial encounter PE (pulmonary thromboembolism) ([facility]) Surgical wound infection PAST SURGICAL HISTORY Past Surgical History: Procedure Laterality Date ABCESS DRAINAGE Right 08/07/2020 I&D of right BKA hematoma ANKLE SURGERY Left 12/19/2021 ankle I and D with placement of wound vac - dr alyssa PARKS ABDOMINOPLASTY BREAST SURGERY 2006 and abdomin removal for excess COLONOSCOPY COLONOSCOPY EXTREMITY SURGERY Left 01/24/2022 debridement necrotizing fasciitis LLE, wound vac FOOT SURGERY Right 02/11/2019 FOOT SURGERY Right 2019 [place] FOOT SURGERY Right 04/08/2019 I&D right foot with antibiotic spacer FOOT SURGERY Right 04/24/2019 I&D;, external fixator FOOT SURGERY Left 08/04/2021 peroneus longus tenolysis - Dr Gamino HYSTERECTOMY 1997 INCONTINENCE SURGERY 11/15/2015 synthetic mid urethral sling,cystoscopy JOINT REPLACEMENT LIPOMA RESECTION Right 2015 shoulder ORTHOPEDIC SURGERY Right 04/01/2019 I&D with removal hardware and antibiotic spacer placed OTHER SURGICAL HISTORY Left 11/19/2021 I+D L ankle OTHER SURGICAL HISTORY 09/21/2016 INTERSTIM STAGE II, COMPLEX ANALYSIS OF NEUROSTIMULATOR OTHER SURGICAL HISTORY Right 03/07/2019 debridement of right foot OTHER SURGICAL HISTORY 10/27/2021 Irrigation and debridement of left lower extremity OTHER SURGICAL HISTORY 07/27/2020 Excision of scar tissue, neuroma RIGHT below knee amputation OTHER SURGICAL HISTORY NERVE BLOCKS FROM PAIN MANAGEMENT OTHER SURGICAL HISTORY Right 04/02/2019 R foot skin graft/flap, wound debridement/Wound vac removal OTHER SURGICAL HISTORY Right 04/22/2019 right foot I and D OTHER SURGICAL HISTORY Right 05/06/2019 Right Below Knee Amputation (CPT 45154), #2 Excisional debridement right iliac crest (wound 7 cm length, 3 cm width, 7 cm depth) TONSILLECTOMY (HISTORICAL) TOTAL KNEE ARTHROPLASTY Left 2012 ARTHROSCOPY FIRST AND KNEE REPLACED WISDOM TOOTH EXTRACTION WOUND DEBRIDEMENT Left 10/28/2021 irrigation and debridment LLE HOME MEDICATIONS Prior to Admission medications Medication Sig Start Date End Date Taking? Authorizing Provider acetaminophen (Tylenol) 325 MG tablet Take 2 tablets (650 mg) by mouth every 4 hours for 10 days. 11/02/22 11/12/22 Vinh Collins DO albuterol (2.5 MG/3ML) 0.083% nebulizer solution 2.5 mg. 03/23/22 Historical Provider, albuterol 108 (90 Base) MCG/ACT inhaler INHALE 2 PUFFS FOUR TIMES DAILY NEEDED FOR WHEEZING 03/23/22 Historical Provider, amitriptyline (Elavil) 100 MG tablet 08/09/22 Historical Provider, budesonide (Pulmicort) 0.25 MG/2ML nebulizer solution 12/23/21 Historical Provider, budesonide-formoterol (Symbicort) 160-4.5 MCG/ACT inhaler Inhale 2 puffs in the morning and 2 puffsin the evening. Historical Provider, cholecalciferol (Vitamin D-3) 1.25 MG (88760 UT) capsule Take by mouth 1 (one) time per week. 03/23/22 Historical Provider, citalopram (CeleXA) 40 MG tablet Take 40 mg by mouth in the morning. 03/23/22 Historical Provider, cyclobenzaprine (Flexeril) 10 MG tablet Take 10 mg by mouth Nightly. 07/19/15 Historical Provider, Eliquis 5 MG tablet take 2 tablets by mouth TONIGHT, THEN 2 TABLETS TWICE A DAY FOR 5... (REFER TO PRESCRIPTION NOTES). 09/05/22 Historical Provider, fluticasone (Flonase) 50 MCG/ACT nasal spray 1 spray. Historical Provider, gabapentin (Neurontin) 300 MG capsule Take 1 capsule (300 mg) by mouth Nightly. 11/02/22 12/02/22 Vinh Collins DO Lidocaine 4 % patch Apply 1 patch topically daily. Do not start before November 03, 2022. 11/03/22 Vinh Collins, omeprazole (PriLOSEC) [address] capsule Take 1 capsule by mouth in the morning. 07/12/15 Historical Provider, oxyCODONE (Roxicodone) 5 MG immediate release tablet Take 1 tablet (5 mg) by mouth every 4 hours asneeded for moderate pain (4-6) for up to 5 days. 11/02/22 11/07/22 Vinh Collins DO tiotropium (Spiriva) [address] 18 mcg into inhaler and inhale in the morning.Historical Provider, CURRENT HOSPITAL MEDICATIONS Current Facility-Administered Medications: acetaminophen (Tylenol) tablet 650 mg, 650 mg, Oral, q6h PRN OR acetaminophen (Tylenol) suppository 650 mg, 650 mg, Rectal, q6h PRN, Maged Wilder MD albuterol (2.5 MG/3ML) 0.083% nebulizer solution 2.5 mg, 2.5 mg, Nebulization, q4h PRN, Maged Wilder MD amitriptyline (Elavil) tablet 25 mg, 25 mg, Oral, Nightly, Maged Wilder MD, 25 mg at 11/13/221935 budesonide (Pulmicort) 0.5 MG/2ML nebulizer solution 0.5 mg, 0.5 mg, Nebulization, BID PRN, Maged Wilder MD cefTRIAXone (Rocephin) 2,000 mg in dextrose 5 % 50 mL IVPB Mini-Bag Plus, 2,000 mg, IntraVENous, q24h, César Schneider MD, Stopped at 11/13/22 1726 citalopram (CeleXA) tablet 20 mg, 20 mg, Oral, Daily, Maged Wilder MD, 20 mg at 11/13/22 0935 cyclobenzaprine (Flexeril) tablet 10 mg, 10 mg, Oral, Nightly, César Schneider MD, 10 mg at 11/13/221934 ergocalciferol (Vitamin D2) capsule 1.25 mg, 50,000 Units, Oral, Weekly, Maged Wilder MD, 1.25 mg at 11/12/22 1047 fluticasone (Flonase) nasal spray 1 spray, 1 spray, Each Nostril, BID, Maged Wilder MD, 1 spray at 11/13/221935 influenza vac subunit quadrivalent (Flucelvax) injection 0.5 mL, 0.5 mL, IntraMUSCular, Once, Maged Wilder MD Lidocaine 4 % patch 1 patch, 1 patch, Topical, Daily, Maged Wilder MD, 1 patch at 11/13/22 0935 mometasone-formoterol (Dulera 100) 100-5 MCG/ACT inhaler 2 puff, 2 puff, Inhalation, BID, Maged Wilder MD, 2 puff at 11/13/221935 morphine sulfate (PF) injection 4 mg, 4 mg, IntraVENous, q4h PRN, Kimo Stevens MD, 4 mgat 11/13/22 193 ondansetron ODT (Zofran-ODT) disintegrating tablet 4 mg, 4 mg, Oral, q8h PRN OR ondansetron (Zofran) injection 4 mg, 4 mg, IntraVENous, q6h PRN, Maged Wilder MD oxyCODONE (Roxicodone) immediate release tablet 10 mg, 10 mg, Oral, q4h PRN, iKmo Stevens MD, 10 mg at 11/14/22 0520 pantoprazole (ProtoNix) EC tablet 20 mg, 20 mg, Oral, qAM AC, Maged Wilder MD, 20 mg at 11/14/22 0520 polyethylene glycol (PEG) 3350 (Miralax) packet 17 g, 17 g, Oral, Daily PRN, Maged Wilder MD sodium chloride 0.9 % infusion, 5-250 mL/hr, IntraVENous, PRN, Maged Wilder MD sodium chloride 0.9% (NS) flush 5-40 mL, 5-40 mL, IntraVENous, q12h, Maged Wilder MD, 10 mL at 11/13/22 1935 sodium chloride 0.9% (NS) flush 5-40 mL, 5-40 mL, IntraVENous, PRN, Maged Wilder MD tiotropium (Spiriva) 18 MCG per inhalation capsule 18 mcg, 1 capsule, Inhalation, Daily, Maged Dempsey MD, 18 mcg at 11/13/22 0935 ALLERGIES: Amlodipine, Clonazepam, Ketamine, Lisinopril, and Vancomycin SOCIAL HISTORY: Social History Socioeconomic History Marital status: Spouse name: Not on file Number of children: Not on file Years of education: Not on file Highest education level: Not on file Occupational History Not on file Tobacco Use Smoking status: Former Packs/day: 0.15 Types: Cigarettes Quit date: 10/01/1981 Years since quittin.1 Smokeless tobacco: Never Substance and Sexual Activity Alcohol use: Yes Alcohol/week: 0.0 standard drinks Drug use: No Sexual activity: Not on file Other Topics Concern Not on file Social History Narrative Has been in rehab facility in [place] alone, son close Friends help Social Determinants of Health Financial Resource Strain: Not on file Food Insecurity: Not on file Transportation Needs: Not on file Physical Activity: Not on file Stress: Not on file Social Connections: Not on file Intimate Partner Violence: Not At Risk Fear of Current or Ex-Partner: No Emotionally Abused: No Physically Abused: No Sexually Abused: No Housing Stability: Not on file FAMILY HISTORY: Family History Problem Relation Name Age of Onset Pancreatic cancer Mother Pancreatic cancer Father Further Family History is noncontributory to this injury. REVIEW OF SYSTEMS: Review of Systems - General ROS: negative for - chills, fatigue, fever, malaise or night sweats Psychological ROS: negative Ophthalmic ROS: negative ENT ROS: negative for - headaches or sore throat Hematological and Lymphatic ROS: negative for - bleeding problems or blood clots Respiratory ROS: no cough, shortness of breath, or wheezing Cardiovascular ROS: no chest pain or dyspnea on exertion Gastrointestinal ROS: negative Musculoskeletal ROS: See HPI Neurological ROS: negative for - bowel and bladder control changes, gait disturbance or numbness/tingling All other systems reviewed and are negative VITALS: Vitals: 11/12/22 1033 11/13/22 0929 11/13/22 1035 11/13/22 1916 BP: 129/71 121/75 (!) 142/71 BP Location: Left arm Patient Position: Pulse: 78 85 90 Resp: 16 18 16 Temp: 36.6 C (97.8 F) 37 C (98.6 F) 36.2 C (97.2 F) TempSrc: Temporal Temporal Temporal SpO2: 95% 93% 94% Weight: Height: 1.702 m (5' 7) PHYSICAL EXAM: GENERAL: Patient is well developed/well nourished in NAD. A+O x 4 MOOD AND AFFECT: Calm appropriate to situation GAIT AND STATION: Patient is in bed COORDINATION and BALANCE: Patient is grossly coordinated LYMPHADENOPATHY: none on examination of the affected extremity(s) LLE INSPECTION SKIN: Wound vacuum present along the middle lateral aspect of the incision with audible suction. Serosanguineous discharge in canister appreciated. There has been interval dressing placement to the lateral aspect of the surgical incision by nursing. Dressings are clean/dry/intact. NEUROLOGICAL: SILT intact to stump MOTOR: +hip flexion VASCULAR: Stump is warm and well-perfused Medial aspect of left AKA Lateral aspect of left AKA LABS: CBC: Lab Results Component Value Date WBC 7.3 11/13/2022 RBC 3.56 (L) 11/13/2022 BMP: Lab Results Component Value Date GLUCOSE 175 (H) 11/12/2022 CO2 25 11/12/2022 BUN 18 (H) 11/12/2022 CREATININE 0.75 11/12/2022 CALCIUM 8.6 11/12/2022 PT/INR: No results found for: PT, INR, APTT Type and Screen: Lab Results Component Value Date RH POS 11/14/2022 CRP: No results found for: CRP ESR: No results found for: SEDRATE HgBA1c: No components found for: LABA1C The above labs were reviewed by me. Assessment Siobhan is a 62 y.o.female with surgical site infection, status post left above- knee amputation 10/31/2022, status post I&D with wound VAC application 11/11/2022 Plan -Return to OR for repeat I&D/closure Tuesday 11/[address] Bassett -Maintain wound vac, monitor output; no need to change wound vacuum, as this will be removed intraoperatively -Multimodal pain control -NWB LLE -Elevate -IV ancef until return to OR, in process -Type and screen pending -PT/OT -NPO -DVT ppx per primary, Hold anticoagulation in anticipation of surgery tomorrow -Pain/medical management per primary -Ortho to follow. Please page on-call resident with questions/concerns * Vielka Hampton, RD - 11/13/2022 1:34 PM EST Nutrition Assessment Type and Reason for Visit: Initial (DT referral- wound) Nutrition Recommendations/Plan: Continue regular diet as ordered Per MNT protocol, will order Ensure Max once daily to promote protein intake for optimal wound healing (150 kcal, 30 g protein, 11 oz each) RD will continue to monitor and follow weekly Malnutrition Assessment: Malnutrition Status: No malnutrition Nutrition Assessment: Pt wt PMH including GERD, fibromyalgia, asthma, HTN, recent left AKA, asthma, obesity, depression, obstructive sleep apnea presented to [facility] for evaluation of left arm cellulitis and possible deep infection. Patient underwent I&D today with evacuation of hematoma and wound VAC placement. Plan for return to OR for repeat I&D/closure Tuesday 11/14. Pt reports intact appetite, eating well cur rently and prior to admission, denies unplanned weight loss, indicates she has been educated on increased protein needs for wound healing, states she was consuming Premier shakes at home, does not like Ensure, has had Bandar previously which she has tried in Sprite as well as water and did not tolerate it. She is willing to try Ensure Max only. RD encouraged adequate protein intake as well. Estimated Daily Nutrient Needs: Energy Requirements Based On: Kcal/kg Weight Used for Energy Requirements: [place] (25-30 kcal/kg) Weight for Energy Calculation (kg): 55.18 kg (adjusted for AKA) Total Energy Requirements (kcals/day): 6606-9558 Weight Used for Protein Requirements: [place] (1.2-1.4 g/kg) Weight in Kg Used for Protein Requirements: 55.18 kg (adjusted for AKA) Estimated Total Protein (g/day): 66-77 Estimated Daily Total Fluid (ml/day): per MD Nutrition Related Findings: Nutrition History: Independent of feeding. Room Service Room Service: Selective GI symptoms: None at this time. Rudi Scale Score: 15 .Wound Type: Surgical Incision Net IO Since Admission: 87.12 mL [11/13/22 1334] Peripheral Vascular (WDL): Exceptions to WDL Edema: Left lower extremity, , , , , LLE Edema: Moderate pitting, indentation subsides rapidly Last BM Date: 11/11/22 No results found for: EFBP, EF3D, LVEFPHYS Labs and meds reviewed: amitriptyline, 25 mg, Oral, Nightly ceFAZolin, 3,000 mg, IntraVENous, q8h citalopram, 20 mg, Oral, Daily ergocalciferol, 50,000 Units, Oral, Weekly fluticasone, 1 spray, Each Nostril, BID gabapentin, 300 mg, Oral, Nightly influenza, 0.5 mL, IntraMUSCular, Once Lidocaine, 1 patch, Topical, Daily mometasone-formoterol, 2 puff, Inhalation, BID pantoprazole, 20 mg, Oral, qAM AC sodium chloride 0.9%, 5-40 mL, IntraVENous, q12h tiotropium, 1 capsule, Inhalation, Daily BMP: Recent Labs 11/10/22 1541 11/11/22 0301 11/12/22 0008 NA 135 134* 134* K 4.4 3.8 4.3 CL 103 101 101 CO2 25 27 25 BUN 6* 11 18* CREATININE 0.55 0.66 0.75 GLUCOSE 91 116* 175* CALCIUM 8.7 8.6 8.6 No results for input(s): POCGLU in the last 72 hours. No results found for: HGBA1C No results found for: VITD25 No results found for: ZINC Wt Readings from Last 10 Encounters: 11/10/22 (!) 157 kg (346 lb) 11/10/22 (!) 159 kg (350 lb) 10/30/22 (!) 159 kg (350 lb) 09/12/22 (!) 150 kg (330 lb) 09/08/22 (!) 150 kg (330 lb) 09/07/22 (!) 150 kg (330 lb) 08/15/22 (!) 150 kg (330 lb) 05/16/22 (!) 141 kg (310 lb) 03/21/22 (!) 154 kg (340 lb) 02/28/22 (!) 154 kg (340 lb) Current Nutrition Therapies: Adult diet Regular NPO diet NPO except: Sips of Water with Meds Current Oral Intake Average Meal Intake: 76-100% Average Supplements Intake: None Ordered Anthropometric Measures: Height: 170.2 cm (5' 7) Current Body Weight: ([place], wound vac and other items on bed- unable to obtain bedscale weight) Admission Body Weight: 157 kg (stated) Usual Body Weight: (369# on 10/17/22, 358# on 08/31/22, 210# on 05/16/22) [place] Body Weight (lbs) (Calculated): 135 lbs [place] Body Weight (Kg) (Calculated): 61 kg Weight Adjustment For: Amputation % Weight Adjustment: 10.1 - AKA Total Adjusted Percentage (Calculated): 10.1 Adjusted [place] Body Weight (lbs) (Calculated): 121.4 lbs Adjusted [place] Body Weight (kg) (Calculated): 55.18 kg BMI Categories: Obese Class 3 (BMI 40.0 or greater) Nutrition Diagnosis: Increased nutrient needs related to increase demand for energy/nutrients as evidenced by wounds Nutrition Interventions: Nutrition Education/Counseling: Survival skills/brief education completed Coordination of Nutrition Care: Continue to monitor while inpatient Goals: Goals: by next RD assessment (Consume ONS and recommended protein daily) Nutrition Monitoring and Evaluation: Behavioral-Environmental Outcomes: None Identified Food/Nutrient Intake Outcomes: Food and Nutrient Intake, Supplement Intake Physical Signs/Symptoms Outcomes: Biochemical Data, GI Status, Fluid Status or Edema, Skin, Weight Discharge Planning: Continue Oral Nutrition Supplement Vielka Hampton RD, LD Contact: *[phone] or via [employer] chat * Joanna Leslie PA-C - 11/13/2022 9:47 AM EST Images from the original note were not included. Orthopedic Progress Note Name: Siobhan Haas Date:11/13/2022 Attending:César Schneider MD Subjective CHIEF COMPLAINT: surgical site infection, status post left above-knee amputation 10/31/2022, status post I&D with wound VAC application 11/11/2022 HPI: Patient reports that yesterday/overnight, the pain in her left lower extremity was significant. She states that her left lower extremity is feeling better this morning from a pain perspective. She denies any numbness or tingling into her stump site. Patient denies any fevers, chills, malaise. The patient reports that the lateral aspect of her incision was bleeding, and nursing subsequently placed dressings to the lateral aspect of her incision this morning. Dressings are currently observedand are clean/dry/intact to the lateral aspect of the surgical site. Discussed with patient plan for return the OR tomorrow, and stated that it is likely that she will return from the OR with surgical vacuum in place. 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) Cellulitis of lower leg Back pain Tear of peroneal tendon Depressive disorder Hemorrhage of rectum and anus HTN (hypertension) Pansystolic murmur Chest wall pain Asthma Asthma with acute exacerbation Pain from implanted hardware Obstructive sleep apnea syndrome Chronic obstructive lung disease (HCC) Morbid obesity (CMS/HCC) (HCC) Migraine headache Vitamin D deficiency Viral upper respiratory tract infection 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HCC) Swelling of left lower extremity Shortness of breath Seasonal allergies Superficial incisional surgical site infection Rheumatoid arthritis (HCC) Restless legs syndrome Anxiety Arthritis of right subtalar joint Attention deficit disorder of adult with hyperactivity Benign essential hypertension Bronchospasm Contusion of knee Edema of lower extremity Impaired fasting glucose Acquired deformity of left toe History of tonsillectomy Chronic knee pain after total replacement of left knee joint Weakness of left lower extremity History of hysterectomy Fibromyositis Increased body mass index (BMI) Gastroesophageal reflux disease Hiatal hernia 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 care (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 antibiotics Left leg cellulitis Dehiscence of closure of skin, sequela Necrotizing soft tissue infection Infected wound Osteomyelitis (HCC) Hematoma Cellulitis of right foot Post-op pain Osteomyelitis of right foot ([facility]) Open wound of right foot MSSA (methicillin susceptible Staphylococcus aureus) infection Right foot infection Hardware complicating wound infection (CMS/HCC) ([facility]) Right foot pain Postoperative pain Cellulitis Lymphedema Stump pain ([facility]) Abrasion of lower leg with infection, initial encounter PE (pulmonary thromboembolism) ([facility]) Surgical wound infection PAST SURGICAL HISTORY Past Surgical History: Procedure Laterality Date ABCESS DRAINAGE Right 08/07/2020 I&D of right BKA hematoma ANKLE SURGERY Left 12/19/2021 ankle I and D with placement of wound vac - dr alyssa PARKS ABDOMINOPLASTY BREAST SURGERY 2006 and abdomin removal for excess COLONOSCOPY COLONOSCOPY EXTREMITY SURGERY Left 01/24/2022 debridement necrotizing fasciitis LLE, wound vac FOOT SURGERY Right 02/11/2019 FOOT SURGERY Right 2019 [place] FOOT SURGERY Right 04/08/2019 I&D right foot with antibiotic spacer FOOT SURGERY Right 04/24/2019 I&D;, external fixator FOOT SURGERY Left 08/04/2021 peroneus longus tenolysis - Dr Gamino HYSTERECTOMY 1997 INCONTINENCE SURGERY 11/15/2015 synthetic mid urethral sling,cystoscopy JOINT REPLACEMENT LIPOMA RESECTION Right 2015 shoulder ORTHOPEDIC SURGERY Right 04/01/2019 I&D with removal hardware and antibiotic spacer placed OTHER SURGICAL HISTORY Left 11/19/2021 I+D L ankle OTHER SURGICAL HISTORY 09/21/2016 INTERSTIM STAGE II, COMPLEX ANALYSIS OF NEUROSTIMULATOR OTHER SURGICAL HISTORY Right 03/07/2019 debridement of right foot OTHER SURGICAL HISTORY 10/27/2021 Irrigation and debridement of left lower extremity OTHER SURGICAL HISTORY 07/27/2020 Excision of scar tissue, neuroma RIGHT below knee amputation OTHER SURGICAL HISTORY NERVE BLOCKS FROM PAIN MANAGEMENT OTHER SURGICAL HISTORY Right 04/02/2019 R foot skin graft/flap, wound debridement/Wound vac removal OTHER SURGICAL HISTORY Right 04/22/2019 right foot I and D OTHER SURGICAL HISTORY Right 05/06/2019 Right Below Knee Amputation (CPT 17032), #2 Excisional debridement right iliac crest (wound 7 cm length, 3 cm width, 7 cm depth) TONSILLECTOMY (HISTORICAL) TOTAL KNEE ARTHROPLASTY Left 2012 ARTHROSCOPY FIRST AND KNEE REPLACED WISDOM TOOTH EXTRACTION WOUND DEBRIDEMENT Left 10/28/2021 irrigation and debridment LLE HOME MEDICATIONS Prior to Admission medications Medication Sig Start Date End Date Taking? Authorizing Provider acetaminophen (Tylenol) 325 MG tablet Take 2 tablets (650 mg) by mouth every 4 hours for 10 days. 11/02/22 11/12/22 Vinh Collins, DO albuterol (2.5 MG/3ML) 0.083% nebulizer solution 2.5 mg. 03/23/22 Historical Provider, albuterol 108 (90 Base) MCG/ACT inhaler INHALE 2 PUFFS FOUR TIMES DAILY NEEDED FOR WHEEZING 03/23/22 Historical Provider, amitriptyline (Elavil) 100 MG tablet 08/09/22 Historical Provider, budesonide (Pulmicort) 0.25 MG/2ML nebulizer solution 12/23/21 Historical Provider, budesonide-formoterol (Symbicort) 160-4.5 MCG/ACT inhaler Inhale 2 puffs in the morning and 2 puffsin the evening. Historical Provider, cholecalciferol (Vitamin D-3) 1.25 MG (17726 UT) capsule Take by mouth 1 (one) time per week. 03/23/22 Historical Provider, citalopram (CeleXA) 40 MG tablet Take 40 mg by mouth in the morning. 03/23/22 Historical Provider, cyclobenzaprine (Flexeril) 10 MG tablet Take 10 mg by mouth Nightly. 07/19/15 Historical Provider, Eliquis 5 MG tablet take 2 tablets by mouth TONIGHT, THEN 2 TABLETS TWICE A DAY FOR 5... (REFER TO PRESCRIPTION NOTES). 09/05/22 Historical Provider, fluticasone (Flonase) 50 MCG/ACT nasal spray 1 spray. Historical Provider, gabapentin (Neurontin) 300 MG capsule Take 1 capsule (300 mg) by mouth Nightly. 11/02/22 12/02/22 Vinh Collins, DO Lidocaine 4 % patch Apply 1 patch topically daily. Do not start before November 03, 2022. 11/03/22 Vinh Collins, DO omeprazole (PriLOSEC) [address] capsule Take 1 capsule by mouth in the morning. 07/12/15 Historical Provider, oxyCODONE (Roxicodone) 5 MG immediate release tablet Take 1 tablet (5 mg) by mouth every 4 hours asneeded for moderate pain (4-6) for up to 5 days. 11/02/22 11/07/22 Vinh Collins, tiotropium (Spiriva) [address] 18 mcg into inhaler and inhale in the morning.Historical Provider, CURRENT HOSPITAL MEDICATIONS Current Facility-Administered Medications: acetaminophen (Tylenol) tablet 650 mg, 650 mg, Oral, q6h PRN OR acetaminophen (Tylenol) suppository 650 mg, 650 mg, Rectal, q6h PRN, Maged Wilder MD albuterol (2.5 MG/3ML) 0.083% nebulizer solution 2.5 mg, 2.5 mg, Nebulization, q4h PRN, Maged Wilder MD amitriptyline (Elavil) tablet 25 mg, 25 mg, Oral, Nightly, Maged Wilder MD, 25 mg at 11/12/222158 budesonide (Pulmicort) 0.5 MG/2ML nebulizer solution 0.5 mg, 0.5 mg, Nebulization, BID PRN, Maged Wilder MD ceFAZolin in sodium chloride 0.9% (Ancef) IVPB 3,000 mg, 3,000 mg, IntraVENous, q8h, Maged Wilder MD, Stopped at 11/13/22 1005 citalopram (CeleXA) tablet 20 mg, 20 mg, Oral, Daily, Maged Wilder MD, 20 mg at 11/13/22 0935 ergocalciferol (Vitamin D2) capsule 1.25 mg, 50,000 Units, Oral, Weekly, Maged Wilder MD, 1.25 mg at 11/12/22 1047 fluticasone (Flonase) nasal spray 1 spray, 1 spray, Each Nostril, BID, Maged Wilder MD, 1 spray at 11/12/22 220 gabapentin (Neurontin) capsule 300 mg, 300 mg, Oral, Nightly, Maged Wilder MD, 300 mg at 11/12/22 215 influenza vac subunit quadrivalent (Flucelvax) injection 0.5 mL, 0.5 mL, IntraMUSCular, Once, Maged Wilder MD Lidocaine 4 % patch 1 patch, 1 patch, Topical, Daily, Maged Wilder MD, 1 patch at 11/13/22 0935 mometasone-formoterol (Dulera 100) 100-5 MCG/ACT inhaler 2 puff, 2 puff, Inhalation, BID, Maged Wilder MD, 2 puff at 11/13/22 0937 morphine sulfate (PF) injection 4 mg, 4 mg, IntraVENous, q4h PRN, Kimo Stevens MD, 4 mgat 11/13/22 0555 ondansetron ODT (Zofran-ODT) disintegrating tablet 4 mg, 4 mg, Oral, q8h PRN OR ondansetron (Zofran) injection 4 mg, 4 mg, IntraVENous, q6h PRN, Maged Wilder MD oxyCODONE (Roxicodone) immediate release tablet 10 mg, 10 mg, Oral, q4h PRN, Kimo Stevens MD, 10 mg at 11/13/22 0935 pantoprazole (ProtoNix) EC tablet 20 mg, 20 mg, Oral, qAM AC, Maged Wilder MD, 20 mg at 11/13/22 0554 polyethylene glycol (PEG) 3350 (Miralax) packet 17 g, 17 g, Oral, Daily PRN, Maged Wilder MD sodium chloride 0.9 % infusion, 5-250 mL/hr, IntraVENous, PRN, Maged Wilder MD sodium chloride 0.9% (NS) flush 5-40 mL, 5-40 mL, IntraVENous, q12h, Maged Wilder MD, 10 mL at 11/12/22 1900 sodium chloride 0.9% (NS) flush 5-40 mL, 5-40 mL, IntraVENous, PRN, Maged Wilder MD tiotropium (Spiriva) 18 MCG per inhalation capsule 18 mcg, 1 capsule, Inhalation, Daily, Maged Dempsey MD, 18 mcg at 11/13/22 0935 ALLERGIES: Amlodipine, Clonazepam, Ketamine, Lisinopril, and Vancomycin SOCIAL HISTORY: Social History Socioeconomic History Marital status: Spouse name: Not on file Number of children: Not on file Years of education: Not on file Highest education level: Not on file Occupational History Not on file Tobacco Use Smoking status: Former Packs/day: 0.15 Types: Cigarettes Quit date: 10/01/1981 Years since quittin.1 Smokeless tobacco: Never Substance and Sexual Activity Alcohol use: Yes Alcohol/week: 0.0 standard drinks Drug use: No Sexual activity: Not on file Other Topics Concern Not on file Social History Narrative Has been in rehab facility in [place] alone, son close Friends help Social Determinants of Health Financial Resource Strain: Not on file Food Insecurity: Not on file Transportation Needs: Not on file Physical Activity: Not on file Stress: Not on file Social Connections: Not on file Intimate Partner Violence: Not At Risk Fear of Current or Ex-Partner: No Emotionally Abused: No Physically Abused: No Sexually Abused: No Housing Stability: Not on file FAMILY HISTORY: Family History Problem Relation Name Age of Onset Pancreatic cancer Mother Pancreatic cancer Father Further Family History is noncontributory to this injury. REVIEW OF SYSTEMS: Review of Systems - General ROS: negative for - chills, fatigue, fever, malaise or night sweats Psychological ROS: negative Ophthalmic ROS: negative ENT ROS: negative for - headaches or sore throat Hematological and Lymphatic ROS: negative for - bleeding problems or blood clots Respiratory ROS: no cough, shortness of breath, or wheezing Cardiovascular ROS: no chest pain or dyspnea on exertion Gastrointestinal ROS: negative Musculoskeletal ROS: See HPI Neurological ROS: negative for - bowel and bladder control changes, gait disturbance or numbness/tingling All other systems reviewed and are negative VITALS: Vitals: 11/11/22 2139 11/12/22 0554 11/12/22 1033 11/13/22 0929 BP: 129/76 106/63 129/71 121/75 BP Location: Left arm Left arm Patient Position: Lying Lying Pulse: 88 79 78 85 Resp: 18 18 16 18 Temp: 36.1 C (97 F) 36.4 C (97.6 F) 36.6 C (97.8 F) 37 C (98.6 F) TempSrc: Temporal Temporal Temporal Temporal SpO2: 92% 92% 95% 93% Weight: Height: PHYSICAL EXAM: GENERAL: Patient is well developed/well nourished in NAD. A+O x 4 MOOD AND AFFECT: Calm appropriate to situation GAIT AND STATION: Patient is in bed COORDINATION and BALANCE: Patient is grossly coordinated LYMPHADENOPATHY: none on examination of the affected extremity(s) LLE INSPECTION SKIN: Medial surgical edges were found to be clean and well approximated using al with trace amount of blood from incision sites. Mild amount of erythema medially. No expressible purulence from medial incision site. Wound vacuum present along the middle lateral aspect of the incision with audible suction. Serosanguineous discharge in canister appreciated. There has been interval dressing placement to the lateral aspect of the surgical incision by nursing. Dressings are clean/dry/intact NEUROLOGICAL: SILT intact to stump MOTOR: +hip flexion VASCULAR: Stump is warm and well-perfused Medial aspect of left AKA Lateral aspect of left AKA LABS: CBC: Lab Results Component Value Date WBC 7.3 11/13/2022 RBC 3.56 (L) 11/13/2022 BMP: Lab Results Component Value Date GLUCOSE 175 (H) 11/12/2022 CO2 25 11/12/2022 BUN 18 (H) 11/12/2022 CREATININE 0.75 11/12/2022 CALCIUM 8.6 11/12/2022 PT/INR: Lab Results Component Value Date INR 1.1 11/10/2022 Type and Screen: Lab Results Component Value Date RH POS 11/10/2022 CRP: Lab Results Component Value Date CRP 53.0 (H) 11/10/2022 ESR: Lab Results Component Value Date SEDRATE 71 (H) 11/10/2022 HgBA1c: No components found for: LABA1C The above labs were reviewed by me. Assessment Siobhan is a 62 y.o.female with surgical site infection, status post left above- knee amputation 10/31/2022, status post I&D with wound VAC application 11/11/2022 Plan -Return to OR for repeat I&D/closure Tuesday 11/[address] Bassett -Maintain wound vac, monitor output; no need to change wound vacuum, as this will be removed tomorrow intraoperatively -Multimodal pain control -NWB LLE -Elevate -IV ancef until return to OR, in process -Type and screen pending -PT/OT -Ok for diet today, n.p.o. at midnight -DVT ppx per primary, Hold anticoagulation in anticipation of surgery tomorrow -Pain/medical management per primary -Ortho to follow. Please page on-call resident with questions/concerns * César Schneider MD - 11/13/2022 9:28 AM EST Images from the original note were not included. Hospitalist Progress Note 11/13/2022 [id number]: Please page IMS night Hospitalist for any issues. Subjective: Admit Date: 11/10/2022 PCP: Oj Maddox Room#: [id number] A Brief hospital course: Patient admitted 11/10/2022 for L leg cellulitis. Chronic medical conditions include asthma, HTN, class III obesity, FAY, MDD. Initially presented with concern for infection in the LLE residual limb, had L AKA performed 10/31/22. At ortho follow-up was noted to have erythema ofthe surgical site and they were concerned about developing cellulitis and possibly deep tissue infection, so she was directed to the ED. Hospital course thus far: admitted to medicine with ortho consult, antibx initially held in order to improve yield from OR cultures. Went to OR (11/11) for LLE I&D and wound vac application, with plan to return for wound closure. Following I&D she was star adam on cefazolin, however then changed to ceftriaxone due E coli growth on wound culture and its sensitivities. Interval History: No overnight issues. In good spirits, no complaints today. Adult diet Regular NPO diet 24HR INTAKE/OUTPUT: Intake/Output Summary (Last 24 hours) at 11/13/2022 0928 Last data filed at 11/12/2022 1602 Gross per 24 hour Intake -- Output 200 ml Net -200 ml 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 ([facility]) 07/27/2020 Asthma Cellulitis Constipation Depression Fibromyalgia GERD (gastroesophageal reflux disease) Hx of right BKA ([facility]) ([facility]) Hypertension Morbidly obese (CMS/[facility]) ([facility]) 02/03/2019 BMI 50.52 On home O2 FAY treated with BiPAP Osteoarthritis Osteomyelitis of right foot (HCC) SCHEDULED FOR THE SURGERY ON 02/11/2019 Seasonal allergies Shortness of breath URSULA (stress urinary incontinence, female) Vertigo Objective: Vitals: BP 129/71 Pulse 78 Temp 36.6 C (97.8 F) (Temporal) Resp 16 Ht 5' 7 (1.702 m) Wt (!) 346 lb (157 kg) SpO2 95% BMI 54.19 kg/m Pulse Ox: SpO2 Av % Min: 95 % Max: 95 % Supplemental O2: O2 Flow Rate (L/min): 3 L/min General appearance: NAD, cooperative with exam, obese. Respiratory: CTAB with normal effort. Cardiovascular: RRR, no M/R/G. No pedal edema. Peripheral pulses 2+. Abdomen: Soft, NT/ND with NBS. Musculoskeletal: RLE with BKA, LLE with wound vac in place over residual limb, incisions appear well-approximated. Skin: Skin appropriately warm, turgor and color unremarkable. No lesions noted except as noted above. Neurologic: Grossly neurologically intact. Answering questions & following directions appropriately. LABS: HEME: Recent Labs 11/11/22 0301 11/12/22 0008 11/13/22 0045 WBC 7.4 9.6 7.3 RBC 3.45* 3.43* 3.56* HGB 8.9* 8.9* 9.1* HCT 27.7* 27.5* 28.8* MCV 80.4 80.3 80.9 RDW 23.5* 22.5* 22.7* PLT 354 375 384 CHEM: Recent Labs 11/10/22 1541 11/11/22 0301 11/12/22 0008 NA 135 134* 134* K 4.4 3.8 4.3 CL 103 101 101 CO2 25 27 25 BUN 6* 11 18* CREATININE 0.55 0.66 0.75 EGFR >90.0 >90.0 89.6 GLUCOSE 91 116* 175* CALCIUM 8.7 8.6 8.6 ANIONGAP 7 6 8 CRP 53.0* -- -- SEDRATE 71* -- -- LIVER: No results for input(s): AST, ALT, BILITOT, ALKPHOS, ALBUMIN, PROT, GGT in the last 72 hours. COAG: Recent Labs 11/10/22 1541 PROTIME 11.2 INR 1.1 CARDIAC: No results for input(s): TROPONINI in the last 72 hours. No results found for: BNP No results for input(s): POCGLU in the last 72 hours. No results for input(s): LACTATE in the last 72 hours. Lab Results Component Value Date PROCAL 0.02 11/11/2022 Urine Culture: No results found for this or any previous visit. Blood Culture: No results found for this or any previous visit. Medications: Current Facility-Administered Medications: acetaminophen (Tylenol) tablet 650 mg, 650 mg, Oral, q6h PRN OR acetaminophen (Tylenol) suppository 650 mg, 650 mg, Rectal, q6h PRN, Maged Wilder MD albuterol (2.5 MG/3ML) 0.083% nebulizer solution 2.5 mg, 2.5 mg, Nebulization, q4h PRN, Maged Wilder MD amitriptyline (Elavil) tablet 25 mg, 25 mg, Oral, Nightly, Maged Wilder MD, 25 mg at 11/12/222158 budesonide (Pulmicort) 0.5 MG/2ML nebulizer solution 0.5 mg, 0.5 mg, Nebulization, BID PRN, Maged Wilder MD ceFAZolin in sodium chloride 0.9% (Ancef) IVPB 3,000 mg, 3,000 mg, IntraVENous, q8h, Maged Wilder MD, Stopped at 11/13/22 0100 citalopram (CeleXA) tablet 20 mg, 20 mg, Oral, Daily, Maged Wilder MD, 20 mg at 11/12/22 103 cyclobenzaprine (Flexeril) tablet 10 mg, 10 mg, Oral, Nightly, Maged Wilder MD, 10 mg at 11/12/222158 ergocalciferol (Vitamin D2) capsule 1.25 mg, 50,000 Units, Oral, Weekly, Maged Wilder MD, 1.25 mg at 11/12/22 104 fluticasone (Flonase) nasal spray 1 spray, 1 spray, Each Nostril, BID, Maged Wilder MD, 1 spray at 02/12/23 2200 gabapentin (Neurontin) capsule 300 mg, 300 mg, Oral, Nightly, Maged Wilder MD, 300 mg at 11/12/222158 influenza vac subunit quadrivalent (Flucelvax) injection 0.5 mL, 0.5 mL, IntraMUSCular, Once, Maged Wilder MD ketamine 25 mg in sodium chloride 0.9 % 50 mL ivpb, 25 mg, IntraVENous, Once, Maged Wilder MD Lidocaine 4 % patch 1 patch, 1 patch, Topical, Daily, Maged Wilder MD, 1 patch at 11/12/22 1014 mometasone-formoterol (Dulera 100) 100-5 MCG/ACT inhaler 2 puff, 2 puff, Inhalation, BID, Maged Wilder MD, 2 puff at 11/12/222199 morphine sulfate (PF) injection 4 mg, 4 mg, IntraVENous, q4h PRN, Kimo Stevens MD, 4 mgat 11/13/22 0555 ondansetron ODT (Zofran-ODT) disintegrating tablet 4 mg, 4 mg, Oral, q8h PRN OR ondansetron (Zofran) injection 4 mg, 4 mg, IntraVENous, q6h PRN, Maged Wilder MD oxyCODONE (Roxicodone) immediate release tablet 10 mg, 10 mg, Oral, q4h PRN, Kimo Stevens MD, 10 mg at 11/13/22 0318 pantoprazole (ProtoNix) EC tablet 20 mg, 20 mg, Oral, qAM AC, Maged Wilder MD, 20 mg at 11/13/22 0554 polyethylene glycol (PEG) 3350 (Miralax) packet 17 g, 17 g, Oral, Daily PRN, Maged Wilder MD sodium chloride 0.9 % infusion, 5-250 mL/hr, IntraVENous, PRN, Maged Wilder MD sodium chloride 0.9% (NS) flush 5-40 mL, 5-40 mL, IntraVENous, q12h, Maged Wilder MD, 10 mL at 11/12/22 1900 sodium chloride 0.9% (NS) flush 5-40 mL, 5-40 mL, IntraVENous, PRN, Maged Wilder MD tiotropium (Spiriva) 18 MCG per inhalation capsule 18 mcg, 1 capsule, Inhalation, Daily, Maged Dempsey MD Medical Decision Making Acute, acute on chronic, unstable/uncontrolled chronic problems: LLE post-op infection, s/p I&D and wound vac (11/11) Post-op blood loss anemia, stable/uptrending Polypharmacy, particularly at night (gabapentin + cyclobenzaprine + amitriptyline all scheduled at bedtime), expect this to exacerbate underlying FAY and likely OHS Stable chronic problems affecting care, new non-acute diagnoses: Asthma HTN Class III obesity FAY MDD As a result of the above findings & factors, the following mgmt was pursued: - ortho consulted, appreciate recs - return to OR on 11/14 - NWB LLE - cefazolin IV (11/11 through 11/14)-->now CTX (see below) - pain control (acetaminophen PO prn, oxycodone PO prn, morphine IV prn) - discussed with patient, she reports the gabapentin had previously been discontinued due to oversedation and she now takes only the amitriptyline + cyclobenzaprine, so will discontinue the gabapentin - current regimen reviewed by Dr. Rosales (antibiotics stewardship), after discussion switched from cefazolin to CTX 2 gm IV due to sensitivities on wound culture - am labs, replace lytes prn - PT/OT/CM/SW - delirium precautions: increase activity - DVT prophylaxis: encourage ambulation (encourage activity d/t amputee status) No further changes to medications, nor pre-op studies, are needed prior to patient returning to OR on 11/14/22. Complexity: Acute, complicated injury (MOD). Multiple stable chronic illnesses (MOD). Risk: Use of parenteral controlled substances (HIGH). Prescription drug management (MOD). Advance Directive: Full Code Anticipated Discharge - Date - anticipate 11/15 - Location - Skilled Facility ([facility]) - Pending the following - post-op recovery, transition to PO pain regimen César Schneider MD Division of Hospitalist Medicine [place] Medical [place] [place]: Medium ([id number]) * Cleo Spencer RCP - 11/13/2022 7:33 AM EST Formerly [facility] Respiratory Care Department Progress Note As part of the Respiratory Assessment Program (RAP), the following Respiratory Therapist evaluationhas been completed, including a chart review and clinical/physical assessment. Respiratory Therapist RAP Evaluation Guideline Points 0 1 2 3 4 Points Strongly Consider History Factor No Pulmonary conditions Stable Pulmonary condition(s) Surgery or Intervention that may impact Pulmonary system (at risk) Surgery or Intervention that is impacting Pulmonary system Active Exacerbation of Pulmonary Condition 1 Respiratory Pattern Regular, RR= 12-18 NAIR or Increased RR= 19-24 Irregular, or RR= 25-30 SOB, talk in short sentences, or RR= 31-35 Severe SOB, accessory muscle use, one word answers, or RR>35 0 Aerosol Med(s), High Flow O2 Breath Sounds Clear Diminished in 1 lobe Diminished in ? 2 lobes Adventitious breath sounds Coarse crackles, Wheezes, or Diminished in >2 lobes 2 Aerosol Med(s), Bronchial Hygiene, Hyperinflation Cough & Sputum Strong cough, no secretion retention or production Weak cough, no secretion retention or production Weak cough, w/ production (less often than Q2hr), or secretion retention No cough, w/ secretion retention or production (less often than Q2hr) Significant secretion production (more often than Q2hr) or mucus plug 0 Aerosol Med(s), Bronchial Hygiene, Hyperinflation Level of Activity Ambulatory Ambulatory with Assist Up in chair or edge of bed (dangle) Non-ambulatory, bedridden with active ROM Completely paralyzed or without active ROM 0 Triage 5 0-2 Triage 4 3-5 Triage 3 6-10 Triage 2 11-14 Triage 1 ?15 Total 3 Triage Score = 5 TRIAGE SCORING - SUGGESTED FREQUENCIES Aerosol Therapy Bronchial Hygiene Hyperinflation Triage Score Q4h & PRN 1 Q4hWA (QID) & PRN 2 TID & PRN 3 BID & PRN 4 PRN 5 Therapy(s) Indicated Yes/No Aerosol Medication y Hyperinflation n Bronchial Hygiene n High Flow Oxygen n RT to enter/modify frequency of treatment order in EMR/EHR to match this RAP evaluation. Based on this RAP evaluation the following therapy is being initiated: aerosol nebs At the following frequency: PRN Comments: Patient evals to BID and PRN, however refused tx 8 times. Eval to PRN. Thank you for involving Respiratory in the care of this patient, * Stephani Moore PT - 11/12/2022 2:25 PM EST Physical Therapy PT orders received. Spoke with pt who declined sitting EOB or sidelying there ex until after her second surgery this Sunday (11/14). States she doesn't want to risk rubbing and injury to the incisionsite L LE. Stated she has been rolling for pressure relief Indep. Discussed performing hip mobilityin sidelying, especially ABD and Ext. Will continue to follow and assess pt likely 11/15. * Janeth Wright - 11/12/2022 1:59 PM EST .Nutrition rescreen completed. Patient referred to the Dietitian. Non-healing wound.HOWIE Dinero * Kimo Stevens MD - 11/12/2022 11:36 AM EST Images from the original note were not included. Hospitalist Progress Note 11/12/2022 Subjective: Admit Date: 11/10/2022 PCP: Oj Maddox Room#: [id number] A Interval History: Siobhan is a 62 y.o. female who presents with with history of recent left AKA, asthma, obesity, depression, hypertension, obstructive sleep apnea who comes into the hospital for evaluation of left arm cellulitis and possible deep infection. Patient recently had left AKA done end of October and she went for her regular follow-up with her regular orthopedic follow-up visit where she was noted to have erythema involving the surgical site and there was concern for for cellulitis and deep wound infection and so she was asked to come to the hospital. Over the past week patient noticed increased pain in her left stump. She denies any fever, chills, headache, dizziness, chest pain. 11/11/2022: Patient underwent I&D today with evacuation of hematoma and wound VAC placement. Started on empiric antibiotics and cultures obtained in OR. Plan is for her to go back to surgery on Sunday for wound closure. Ortho recommended continuing empiric antibiotics until Sunday. 11/12/2022: Patient alert, complaining of increased pain in her left stump. Afebrile. Chart reviewed, night events reviewed, wound VAC in place. Assessment Data: (CAT1) CBC, BMP, lactate, liver enzymes, UA ordered & reviewed, they show hemoglobin 8.9 (LOW: 2x CAT1 or independent historian MOD: 3x CAT1 or 1x CAT3 EXTENSIVE: 3x CAT1 and 1x CAT3) Acute, acute on chronic, unstable/uncontrolled chronic problems: Concern for left stump cellulitis and concern for deep wound infection Postop pain Status post recent left AKA Left stump pain Postop blood loss anemia Stable chronic problems affecting care, new non-acute diagnoses: Obstructive sleep apnea History of asthma Hypertension Obesity Plan As a result of the above findings & factors, the following mgmt was pursued S/p IND today, follow-up with orthopedics, wound VAC in place, continue with empiric antibiotics and plan is for wound closure on Sunday Will increase dose of oxycodone and morphine, discussed with nursing staff Continue to monitor H&H and transfuse as needed - PT/OT/CM/SW - DVT prophylaxis: No anticoagulation Complexity: Acute illness with systemic symptoms (MOD). Risk: Use of parenteral controlled substances (HIGH). Drug therapy requiring intensive monitoring (HIGH). Advance Directive: Full Code Anticipated Discharge - Date -TBD - Location - Home - Pending the following -pending clinical improvement and repeat surgical intervention on Sunday Adult diet Regular NPO diet 24HR INTAKE/OUTPUT: Intake/Output Summary (Last 24 hours) at 11/12/2022 1136 Last data filed at 11/11/2022 1606 Gross per 24 hour Intake -- Output 250 ml Net -250 ml LABS: CBC: Recent Labs 11/10/22 1541 11/11/22 0301 11/12/22 0008 WBC 7.7 7.4 9.6 RBC 3.59* 3.45* 3.43* HGB 9.5* 8.9* 8.9* HCT 29.4* 27.7* 27.5* MCV 81.8 80.4 80.3 RDW 23.5* 23.5* 22.5* PLT 341 354 375 BMP: Recent Labs 11/10/22 1541 11/11/22 0301 11/12/22 0008 NA 135 134* 134* K 4.4 3.8 4.3 CL 103 101 101 CO2 25 27 25 BUN 6* 11 18* CREATININE 0.55 0.66 0.75 GLUCOSE 91 116* 175* CALCIUM 8.7 8.6 8.6 ANIONGAP 7 6 8 LIVER PROFILE:No results for input(s): AST, ALT, BILITOT, ALKPHOS, PROT in the last 72 hours. No lab exists for component: LABALBU PT/INR: Recent Labs 11/10/22 1541 PROTIME 11.2 INR 1.1 CARDIAC ENZYMES: No results for input(s): TROPONINI in the last 72 hours. Procalcitonin: Lab Results Component Value Date PROCAL 0.02 11/11/2022 COVID-19 PCR: No results for input(s): COVID19 in the last 72 hours. Objective: Vitals: BP 129/71 Pulse 78 Temp 36.6 C (97.8 F) (Temporal) Resp 16 Ht 5' 7 (1.702 m) Wt (!) 346 lb (157 kg) SpO2 95% BMI 54.19 kg/m Pulse Ox: SpO2 Av % Min: 92 % Max: 95 % Supplemental O2: O2 Flow Rate (L/min): 3 L/min HEENT: + Palor, no icterus. Lungs: CTA, decreased at bases CVS: RRR, no murmur GI: Soft, Non tender Ext: Right BKA noted left AKA noted, wound VAC noted Medications: Current Facility-Administered Medications: acetaminophen (Tylenol) tablet 650 mg, 650 mg, Oral, q6h PRN OR acetaminophen (Tylenol) suppository 650 mg, 650 mg, Rectal, q6h PRN, Maged Wilder MD albuterol (2.5 MG/3ML) 0.083% nebulizer solution 2.5 mg, 2.5 mg, Nebulization, 4x daily, Maged Dempsey MD, 2.5 mg at 11/10/222033 amitriptyline (Elavil) tablet 25 mg, 25 mg, Oral, Nightly, Maged Wilder MD, 25 mg at 11/11/221934 budesonide (Pulmicort) 0.5 MG/2ML nebulizer solution 0.5 mg, 0.5 mg, Nebulization, Daily, Maged Wilder MD, 0.5 mg at 11/10/222033 ceFAZolin in sodium chloride 0.9% (Ancef) IVPB 3,000 mg, 3,000 mg, IntraVENous, q8h, Maged Wilder MD, Stopped at 11/12/22 105 citalopram (CeleXA) tablet 20 mg, 20 mg, Oral, Daily, Maged Wilder MD, 20 mg at 11/12/22 1033 cyclobenzaprine (Flexeril) tablet 10 mg, 10 mg, Oral, Nightly, Maged Wilder MD, 10 mg at 11/11/221934 ergocalciferol (Vitamin D2) capsule 1.25 mg, 50,000 Units, Oral, Weekly, Maged Wilder MD, 1.25 mg at 11/12/22 104 fluticasone (Flonase) nasal spray 1 spray, 1 spray, Each Nostril, BID, Maged Wilder MD, 1 spray at 11/11/221937 gabapentin (Neurontin) capsule 300 mg, 300 mg, Oral, Nightly, Maged Wilder MD, 300 mg at 11/11/221935 influenza vac subunit quadrivalent (Flucelvax) injection 0.5 mL, 0.5 mL, IntraMUSCular, Once, Maged Wilder MD ketamine 25 mg in sodium chloride 0.9 % 50 mL ivpb, 25 mg, IntraVENous, Once, Maged Wilder MD Lidocaine 4 % patch 1 patch, 1 patch, Topical, Daily, Maged Wilder MD, 1 patch at 11/12/22 1014 mometasone-formoterol (Dulera 100) 100-5 MCG/ACT inhaler 2 puff, 2 puff, Inhalation, BID, Maged Wilder MD, 2 puff at 11/11/221936 morphine sulfate (PF) injection 4 mg, 4 mg, IntraVENous, q4h PRN, Kimo Stevens MD ondansetron ODT (Zofran-ODT) disintegrating tablet 4 mg, 4 mg, Oral, q8h PRN OR ondansetron (Zofran) injection 4 mg, 4 mg, IntraVENous, q6h PRN, Maged Wilder MD oxyCODONE (Roxicodone) immediate release tablet 10 mg, 10 mg, Oral, q4h PRN, Kimo Stevens MD pantoprazole (ProtoNix) EC tablet 20 mg, 20 mg, Oral, qAM AC, Maged Wilder MD, 20 mg at 11/12/22 0900 polyethylene glycol (PEG) 3350 (Miralax) packet 17 g, 17 g, Oral, Daily PRN, Maged Wilder MD sodium chloride 0.9 % infusion, 5-250 mL/hr, IntraVENous, PRN, Maged Wilder MD sodium chloride 0.9% (NS) flush 5-40 mL, 5-40 mL, IntraVENous, q12h, Maged Wilder MD, 10 mL at 11/11/22 0600 sodium chloride 0.9% (NS) flush 5-40 mL, 5-40 mL, IntraVENous, PRN, Maged Wilder MD tiotropium (Spiriva) 18 MCG per inhalation capsule 18 mcg, 1 capsule, Inhalation, Daily, MD Kimo Sargent MD Division of Hospitalist Medicine [facility] [place] * Bj Call MD - 11/12/2022 10:40 AM EST .[facility] [place] [address] [address] [place] [id number] Dept: [phone] Loc: [phone] Orthopedic Progress Note Name: Siobhan Haas Date:11/12/2022 Attending:Kimo Stevens,* Subjective No events o/n. Denies any fevers/chills overnight, no chest pain/SOB. Consented for surgery. No other questions at this time. Objective Vitals: Vitals: 11/11/22 0956 11/11/22 2139 11/12/22 0554 11/12/22 1033 BP: 102/81 129/76 106/63 129/71 BP Location: Left arm Left arm Left arm Patient Position: Lying Lying Lying Pulse: 84 88 79 78 Resp: 20 18 18 16 Temp: 35.8 C (96.4 F) 36.1 C (97 F) 36.4 C (97.6 F) 36.6 C (97.8 F) TempSrc: Temporal Temporal Temporal Temporal SpO2: 90% 92% 92% 95% Weight: Height: Physical Exam: General: NAD Left Lower Extremity: Dressings clean/dry/intact - wound vac with good seal +TTP over stump surgical site +SILT to stump +HF intact Brisk cap refill about the stump LABS: Recent Labs 11/10/22 1541 11/11/22 0301 11/12/22 0008 WBC 7.7 7.4 9.6 HGB 9.5* 8.9* 8.9* HCT 29.4* 27.7* 27.5* PLT 341 354 375 Recent Labs 11/10/22 1541 11/11/22 0301 11/12/22 0008 NA 135 134* 134* K 4.4 3.8 4.3 CL 103 101 101 CO2 25 27 25 BUN 6* 11 18* CREATININE 0.55 0.66 0.75 CALCIUM 8.7 8.6 8.6 Recent Labs 11/10/22 1541 INR 1.1 Recent Labs 11/10/22 1541 SEDRATE 71* CRP 53.0* No results for input(s): HCG in the last 72 hours. Assessment Siobhan is a 62 y.o.female with L SSI s/p AKA on 10/31, s/p I&D + [place] on 11/11 Plan Return to OR for repeat I&D/closure Tuesday 11/[address] Bassett Maintain wound vac, monitor output Multimodal pain control NWB LLE Elevate IV ancef until return to OR PT/OT Ok for diet DVT ppx per primary, ok POD1 from ortho perspective Dispo planning Ortho to follow Bj Call MD PGY-1 Orthopaedic Surgery 11/12/2022 10:42 AM * Kimo Stevens MD - 11/11/2022 11:52 AM EST Images from the original note were not included. Hospitalist Progress Note 11/11/2022 Subjective: Admit Date: 11/10/2022 PCP: Oj Maddox Room#: [id number] A Interval History: Siobhan is a 62 y.o. female who presents with with history of recent left AKA, asthma, obesity, depression, hypertension, obstructive sleep apnea who comes into the hospital for evaluation of left arm cellulitis and possible deep infection. Patient recently had left AKA done end of October and she went for her regular follow-up with her regular orthopedic follow-up visit where she was noted to have erythema involving the surgical site and there was concern for for cellulitis and deep wound infection and so she was asked to come to the hospital. Over the past week patient noticed increased pain in her left stump. She denies any fever, chills, headache, dizziness, chest pain. 11/11/2022: Patient underwent I&D today with evacuation of hematoma and wound VAC placement. Pain is better controlled today. Denies any headache, dizziness, chest pain. Started on empiric antibiotics and cultures obtained in OR. Plan is for her to go back to surgery on Sunday for wound closure. Ortho recommended continuing empiric antibiotics until Sunday. Assessment Data: (CAT1) CBC, BMP, lactate, liver enzymes, UA ordered & reviewed, they show hemoglobin 8.9 (LOW: 2x CAT1 or independent historian MOD: 3x CAT1 or 1x CAT3 EXTENSIVE: 3x CAT1 and 1x CAT3) Acute, acute on chronic, unstable/uncontrolled chronic problems: Concern for left stump cellulitis and concern for deep wound infection Status post recent left AKA Left stump pain Postop blood loss anemia Stable chronic problems affecting care, new non-acute diagnoses: Obstructive sleep apnea History of asthma Hypertension Obesity Plan As a result of the above findings & factors, the following mgmt was pursued S/p IND today, follow-up with orthopedics, wound VAC in place, continue with empiric antibiotics and plan is for surgery on Sunday Continue with current pain meds for pain control Continue to monitor H&H and transfuse as needed Plan discussed with patient's family at bedside - PT/OT/CM/SW - DVT prophylaxis: No anticoagulation Complexity: Acute illness with systemic symptoms (MOD). Risk: Use of parenteral controlled substances (HIGH). Drug therapy requiring intensive monitoring (HIGH). Advance Directive: Full Code Anticipated Discharge - Date -TBD - Location - Home - Pending the following -pending clinical improvement and repeat surgical intervention on Sunday Adult diet Regular 24HR INTAKE/OUTPUT: Intake/Output Summary (Last 24 hours) at 11/11/2022 1153 Last data filed at 11/11/2022 0816 Gross per 24 hour Intake 537.12 ml Output -- Net 537.12 ml LABS: CBC: Recent Labs 11/10/22 1541 11/11/22 0301 WBC 7.7 7.4 RBC 3.59* 3.45* HGB 9.5* 8.9* HCT 29.4* 27.7* MCV 81.8 80.4 RDW 23.5* 23.5* PLT 341 354 BMP: Recent Labs 11/10/22 1541 11/11/22 0301 NA 135 134* K 4.4 3.8 CL 103 101 CO2 25 27 BUN 6* 11 CREATININE 0.55 0.66 GLUCOSE 91 116* CALCIUM 8.7 8.6 ANIONGAP 7 6 LIVER PROFILE:No results for input(s): AST, ALT, BILITOT, ALKPHOS, PROT in the last 72 hours. No lab exists for component: LABALBU PT/INR: Recent Labs 11/10/22 1541 PROTIME 11.2 INR 1.1 CARDIAC ENZYMES: No results for input(s): TROPONINI in the last 72 hours. Procalcitonin: Lab Results Component Value Date PROCAL 0.02 11/11/2022 COVID-19 PCR: No results for input(s): COVID19 in the last 72 hours. Objective: Vitals: BP 102/81 (BP Location: Left arm, Patient Position: Lying) Pulse 84 Temp 35.8 C (96.4 F) (Temporal) Resp 20 Ht 5' 7 (1.702 m) Wt (!) 346 lb (157 kg) SpO2 90% BMI 54.19 kg/m Pulse Ox: SpO2 Av.9 % Min: 90 % Max: 100 % Supplemental O2: O2 Flow Rate (L/min): 3 L/min HEENT: + Palor, no icterus. Lungs: CTA, decreased at bases CVS: RRR, no murmur GI: Soft, Non tender Ext: Right BKA noted left AKA noted, wound VAC noted Medications: Current Facility-Administered Medications: acetaminophen (Tylenol) tablet 650 mg, 650 mg, Oral, q6h PRN OR acetaminophen (Tylenol) suppository 650 mg, 650 mg, Rectal, q6h PRN, Maged Wilder MD albuterol (2.5 MG/3ML) 0.083% nebulizer solution 2.5 mg, 2.5 mg, Nebulization, 4x daily, Maged Dempsey MD, 2.5 mg at 11/10/222033 amitriptyline (Elavil) tablet 25 mg, 25 mg, Oral, Nightly, Maged Wilder MD, 25 mg at 11/10/221951 budesonide (Pulmicort) 0.5 MG/2ML nebulizer solution 0.5 mg, 0.5 mg, Nebulization, Daily, Maged Wilder MD, 0.5 mg at 11/10/222033 ceFAZolin in sodium chloride 0.9% (Ancef) IVPB 3,000 mg, 3,000 mg, IntraVENous, q8h, Maged Wilder MD citalopram (CeleXA) tablet 20 mg, 20 mg, Oral, Daily, Maged Wilder MD, 20 mg at 11/10/222104 cyclobenzaprine (Flexeril) tablet 10 mg, 10 mg, Oral, Nightly, Maged Wilder MD, 10 mg at 11/10/221951 [START ON 11/12/2022] ergocalciferol (Vitamin D2) capsule 1.25 mg, 50,000 Units, Oral, Weekly, Maged Wilder MD fluticasone (Flonase) nasal spray 1 spray, 1 spray, Each Nostril, BID, Maged Wilder MD, 1 spray at 11/10/222103 gabapentin (Neurontin) capsule 300 mg, 300 mg, Oral, Nightly, Maged Wilder MD, 300 mg at 11/10/221951 HYDROmorphone (Dilaudid) 1 MG/ML injection - Pyxis ADS Override Pull, , , , influenza vac subunit quadrivalent (Flucelvax) injection 0.5 mL, 0.5 mL, IntraMUSCular, Once, Maged Wilder MD ketamine 25 mg in sodium chloride 0.9 % 50 mL ivpb, 25 mg, IntraVENous, Once, Maged Wilder MD Lidocaine 4 % patch 1 patch, 1 patch, Topical, Daily, Maged Wilder MD, 1 patch at 11/10/221951 mometasone-formoterol (Dulera 100) 100-5 MCG/ACT inhaler 2 puff, 2 puff, Inhalation, BID, Maged Wilder MD, 2 puff at 11/10/222105 morphine sulfate (PF) injection 2 mg, 2 mg, IntraVENous, q4h PRN, Maged Wilder MD ondansetron ODT (Zofran-ODT) disintegrating tablet 4 mg, 4 mg, Oral, q8h PRN OR ondansetron (Zofran) injection 4 mg, 4 mg, IntraVENous, q6h PRN, Maged Wilder MD oxyCODONE (Roxicodone) immediate release tablet 5 mg, 5 mg, Oral, q4h PRN, Maged Wilder MD, 5 mg at 11/11/22 1110 pantoprazole (ProtoNix) EC tablet 20 mg, 20 mg, Oral, qAM AC, Maged Wilder MD polyethylene glycol (PEG) 3350 (Miralax) packet 17 g, 17 g, Oral, Daily PRN, Maged Wilder MD sodium chloride 0.9 % infusion, 5-250 mL/hr, IntraVENous, PRN, Maged Wilder MD sodium chloride 0.9% (NS) flush 5-40 mL, 5-40 mL, IntraVENous, q12h, Magde Wilder MD, 10 mL at 11/11/22 0600 sodium chloride 0.9% (NS) flush 5-40 mL, 5-40 mL, IntraVENous, PRN, Maged Wilder MD tiotropium (Spiriva) 18 MCG per inhalation capsule 18 mcg, 1 capsule, Inhalation, Daily, MD Kimo Sargent MD [facility] [place] * David Gray MD - 11/11/2022 4:38 AM EST .logo [facility] [address]MET[facility] [address] [facility] [place] [address] Dept: [phone] Loc: [phone] Orthopedic Progress Note Name: Siobhan Haas Date:11/11/2022 Attending:Kimo Stevens,* Subjective No events o/n. Denies any fevers/chills overnight, no chest pain/SOB. Ready for surgery later this am. No other questions at this time. Objective Vitals: Vitals: 11/10/22 1901 11/10/22203311/10/22204911/11/22 0047 BP: (!) 152/80 (!) 151/75 117/78 BP Location: Left arm Patient Position: Lying Pulse: 101 107 (!) 111 99 Resp: 19 20 22 18 Temp: 37.6 C (99.6 F) 37.3 C (99.1 F) (!) 29.6 C (85.3 F) TempSrc: Temporal Temporal Temporal SpO2: 95% 100% 93% 93% Weight: Height: Physical Exam: General: NAD Left Lower Extremity: Dressings clean/dry/intact +TTP over stump surgical site, same as yesterday Mild erythema present along surgical site as previously noted, has not progressed proximally into thigh +SILT to stump +HF intact Brisk cap refill about the stump Some drainage noted from from lateral edge of wound as well as the middle aspect. No active bleeding. No odor appreciated. [place] intact along surgical site LABS: Recent Labs 11/10/22 1541 11/11/22 0301 WBC 7.7 7.4 HGB 9.5* 8.9* HCT 29.4* 27.7* PLT 341 354 Recent Labs 11/10/22 1541 11/11/22 0301 NA 135 134* K 4.4 3.8 CL 103 101 CO2 25 27 BUN 6* 11 CREATININE 0.55 0.66 CALCIUM 8.7 8.6 Recent Labs 11/10/22 1541 INR 1.1 Recent Labs 11/10/22 1541 SEDRATE 71* CRP 53.0* No results for input(s): HCG in the last 72 hours. Assessment Siobhan is a 62 y.o.female with L SSI s/p AKA on 10/31 Plan -Plan for OR this morning for a left lower extremity irrigation and debridement with possible woundvacuum application -NPO -Please hold antibiotics in anticipation of operating room cultures unless patient becomes acutely ill -Cleared -Consented -Added to OR schedule -Pre-operative work-up completed -NWB LLE; up with assist -Admit to medicine -Pain control and medical management per medicine -Please hold DVT prophylaxis in anticipation of OR -Orthopaedic surgery will follow. Please page school transportation director orthopaedic resident for questions or concerns David Gray MD PGY-2, Orthopaedic Surgery [id number] documented in this [facility]02-27-2023 Hospital course Narrative* Lulú Zhao MD - 11/27/2022 11:20 AM EST Images from the original note were not included. Hospitalist Discharge Summary Siobhan Haas : 1960 Admit date: 11/10/2022 Discharge date: 11/27/2022 Admitting Physician: Kimo Stevens MD Primary Care Physician: Oj Maddox VISIT STATUS: Inpatient CODE STATUS: Full Code DISCHARGE DIAGNOSES: Principal Problem: Surgical wound infection Active Problems: HLD (hyperlipidemia) Superficial venous thrombosis of left upper extremity Left AKA stump surgical site infection, s/p multiple I&D's, and most recently on 11/21. History of recent AKA on 10/23. Acute on chronic microcytic anemia. 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 She has undergone multiple I&D's this admission on 11/11, 11/14, 11/16, 11/21. ID, orthopedics was consulted. She was treated with IV meropenem, ID recommending to continue IV meropenem 2 g 11/30/22. She was also found to be anemic with baseline hemoglobin of 8-9 for the past year. Hematology consulted. She received PICC line on 11/23 for IV antibiotics, was noted to have acute superficial thrombosis of left cephalic vein a day after PICC line was placed. Per discussion between my colleague Dr Bond and with Dr. Aldridge, since she is a hard stick and unsure if the superficial thrombosis is PICC related, plans to continue to use PICC and monitor superficial thrombosis repeat venous Doppler on 11/25,11/27- no propagation of SVT. Eliquis has been restarted on 11/23, hemoglobin stayed stable despite starting Eliquis. PT, OT recommending placement, however patient wants to go home, home abx arranged. SIGNIFICANT DIAGNOSTIC STUDIES: CBC: Recent Labs 11/25/22 0017 11/26/22 0009 11/27/22 0007 WBC 6.4 6.5 6.7 RBC 3.38* 3.31* 3.52* HGB 8.5* 8.4* 8.8* HCT 27.0* 26.5* 28.2* MCV 80.0 80.0 80.2 RDW 22.1* 22.4* 22.5* PLT 407 385 423 BMP:@LABRCNT(NA:3,K:3,CL:3,CO2:3,BUN:3,CREATININE:3,GLUCOSE:3,CALCIUM :3,ANIONGAP:3)@ LIVER PROFILE:No results for input(s): AST, ALT, BILITOT, ALKPHOS, PROT in the last 72 hours. No lab exists for component: LABALBU PT/INR: No results for input(s): PROTIME, INR in the last 72 hours. CARDIAC ENZYMES: No results for input(s): TROPONINI in the last 72 hours. Procalcitonin: No results found for: PROCAL Urine Culture: No results found for this or any previous visit. MEDICATION CHANGES: none RECOMMENDED NEXT STEPS: Follow-up with orthopedics Hospital Course: See discharge diagnoses list above and medication adjustments below in med rec.Thepatient is discharged in improved and stable condition. Consults: Discharge Instructions: Diet: Dietary Orders (From admission, onward) Start Ordered 11/21/222057 Adult diet Regular Diet effective now Question: Diet type Answer: Regular 11/21/222056 Activity: as tolerated Recommended Outpatient Tests: Disposition: Patient discharged in stable condition to Home. Greater than 30 minutes spent discharging the patient and coming up with patient discharge plan. Vitals: BP (!) 161/82 Pulse 87 Temp 36.8 C (98.2 F) (Temporal) Resp 16 Ht 5' 7.01 (1.702 m) Wt (!) 357 lb 6.4 oz (162 kg) SpO2 96% BMI 55.96 kg/m Pulse Ox: SpO2 Av % Min: 96 % Max: 96 % Supplemental O2: O2 Flow Rate (L/min): 4 L/min General appearance: No apparent distress, appears stated age and cooperative with exam HEENT: Normal cephalic, atraumatic without obvious deformity. Pupils equal, round, and reactive to light. Extra ocular muscles intact. Conjunctivae/corneas clear. Neck: Supple, with full range of motion. No jugular venous distention. Trachea midline. No lymphadenopathy. Respiratory: Normal respiratory effort. Clear to auscultation, bilaterally without Rales/Wheezes/Rhonchi. Cardiovascular: Regular rate and rhythm with normal S1/S2 without murmurs, rubs or gallops. Abdomen: Soft, non-tender, non-distended with normal bowel sounds. No rebound or guarding. Musculoskeletal: No clubbing, cyanosis or edema bilaterally. Full range of motion without deformity, +2 peripheral pulses in all extremities. Skin: Skin color, texture, turgor normal. No rashes or lesions. Neurologic: Neurovascularly intact without any focal sensory/motor deficits. Cranial nerves: II-XIIintact, grossly non-focal. Discharge Medications: Medication List START taking these medications ferrous sulfate 325 (65 Fe) MG tablet Take 1 tablet (325 mg) by mouth every other day. Do not start before November 28, 2022. Start taking on: November 28, 2022 methocarbamol 750 MG tablet Commonly known as: Robaxin Take 1 tablet (750 mg) by mouth in the morning and 1 tablet (750 mg) at noon and 1 tablet (750 mg) before bedtime. Do all this for 10 days. polyethylene glycol (PEG) 3350 17 g packet Commonly known as: Miralax Take 17 g by mouth daily for 3 days. Do not start before November 28, 2022. Start taking on: November 28, 2022 senna-docusate sodium 8.6-50 MG tablet Commonly known as: Senokot-S Take 2 tablets by mouth Nightly. CHANGE how you take these medications acetaminophen 500 MG tablet Commonly known as: Tylenol Take 2 tablets (1,000 mg) by mouth in the morning and 2 tablets (1,000 mg) at noon and 2 tablets (1,000 mg) before bedtime. Do all this for 10 days. What changed: medication strength how much to take when to take this apixaban 5 MG tablet Commonly known as: Eliquis Take 1 tablet (5 mg) by mouth 2 times daily. What changed: See the new instructions. meropenem 1 g injection Commonly known as: Merrem Infuse 2 g into a venous catheter in the morning and 2 g at noon and 2 g before bedtime. Do all this for 3 days. What changed: medication strength oxyCODONE 10 MG immediate release tablet Commonly known as: Roxicodone Take 1 tablet (10 mg) by mouth every 4 hours as needed for moderate pain (4-6) for up to 5 days. What changed: medication strength how much to take CONTINUE taking these medications * albuterol (2.5 MG/3ML) 0.083% nebulizer solution * albuterol 108 (90 Base) MCG/ACT inhaler amitriptyline 100 MG tablet Commonly known as: Elavil budesonide 0.25 MG/2ML nebulizer solution Commonly known as: Pulmicort budesonide-formoterol 160-4.5 MCG/ACT inhaler Commonly known as: Symbicort cholecalciferol 1.25 MG (61148 UT) capsule Commonly known as: Vitamin D-3 citalopram 40 MG tablet Commonly known as: CeleXA fluticasone 50 MCG/ACT nasal spray Commonly known as: Flonase gabapentin 300 MG capsule Commonly known as: Neurontin Take 1 capsule (300 mg) by mouth Nightly. Lidocaine 4 % patch Apply 1 patch topically daily. Do not start before November 03, 2022. LORazepam 0.5 MG tablet Commonly known as: Ativan omeprazole [address] capsule Commonly known as: PriLOSEC tiotropium 18 MCG inhalation capsule Commonly known as: Spiriva * This list has 2 medication(s) that are the same as other medications prescribed for you. Read thedirections carefully, and ask your doctor or other care provider to review them with you. STOP taking these medications cyclobenzaprine 10 MG tablet Commonly known as: Flexeril Where to Get Your Medications These medications were sent to [id number] - [place], [place] - [address] [place] [address] acetaminophen 500 MG tablet apixaban 5 MG tablet ferrous sulfate 325 (65 Fe) MG tablet meropenem 1 g injection methocarbamol 750 MG tablet oxyCODONE 10 MG immediate release tablet polyethylene glycol (PEG) 3350 17 g packet senna-docusate sodium 8.6-50 MG tablet Recommended Follow-up: CARMELA Ramos [address] [address] 330 [facility] [phone] Go on 12/06/2022 2:00PM, post op [place] [address] [place] [id number] Follow up Hospital follow up Complexity of Follow up: [] Moderate Complexity: follow up within 7-14 calendar days (54883) [x] Severe Complexity: follow up within 7 calendar days (26626) Follow up Testing, Pending results or Referrals at Transitional Care Visit: [x] yes [] no Instructions to MA: Please call patient on day after discharge (must document patient contacted within 2 business days of discharge). Follow up questions for MA: 1. Did you get medications filled and taking them as instructed from discharge? 2. Are you following your discharge instructions from your hospital stay? 3. Please confirm patient is scheduled for a follow up appointment within the above time frame. Signed: LULÚ ZHAO MD Division of Hospitalist Medicine Inpatient Medical Services[place] [place]27/2022, 11:20 AM documented in this [facility]02-25-2023 Nurse Note* Bozena Sow LPN - 11/25/2022 6:32 PM EST Pt is requesting to go home when discharged and not go to nursing/rehab facility. Wants home care set up. documented in this [facility]02-24-2023 Telephone encounter Note* Telephone Encounter - Eva Antunez - 11/24/2022 12:55 PM EST Patient's son Deacon, in [place] office to drop off FMLA paperwork, he would like to pharmacy picking tech paperwork when completed. Will pay $15 when completed. Pl[address] in Dr. Bassett mailbox. [phone] Procedure note* Lore Damon RN - 11/22/2022 3:24 PM EST PICC Procedure Note History/labs/allergies reviewed. Indication: Left AKA surgical site infection, ltabx Consent was obtained after explaining the procedure, indication, risks to patient and/or next of kin. Time out: Completed immediately prior to the start of the procedure which included verification of the correct patient, correct site and agreement on the procedure to be done. Sterile prep: Complete handwashing care was performed by all involved personnel prior to initiationof the procedure. Full maximum sterile field/barrier technique was followed (with cap and mask, gloves and sterile gown, as well as broad field sterile drapes). Local disinfection was performed with broad field application of dyed chloraprep solution, which was allowed to dry fully prior to the initiation of the procedure. Local anesthetic: Aqueous lidocaine 1% used Ultrasound guidance used. Site prior to insertion: ecchymoses Lot # [id number] Catheter type: 5 Serbian Double Lumen Location: Left basilic vein Trimmed at 55 cm ; inserted at 55 Procedure: The site was prepped with chlorprep solution. Using modified seldinger technique, the above vessel was located venous access obtained with 20g 1.88cm catheter. Wire advanced, microintroducer inserted over wire, wire removed, picc positioned through introducer. The site was reprepped with chlorprep solution followed by placement of an antiseptic device and secured in place via securement device and covered with occlusive dressing. Hemostasis was assured at the termination of procedure. PICC info and BSI info sheet left at bedside. Complications: No apparent complications Follow up Chest X-Ray: Ordered. Placed by Shoaib Rolon APRN * Lore Damon RN - 11/22/2022 3:24 PM EST Central Line Insertion Checklist - PICC per Central Access Team 11/22/22 at 3:24 PM Procedure: [x] Central Venous Catheter Insertion - PICC (see PICC Procedure note same date) Time Out: [x] Completed immediately prior to the start of the procedure which included verification of the correct patient, correct site and agreement on the procedure to be done [] Unable to be completed due to emergent procedure Central Line Bundle: [x] Proceduralist(s) performed hand hygiene prior to starting procedure The following were worn by the proceduralist(s) throughout the procedure: [x] Hat [x] Mask [x] Sterile gown [x] Sterile gloves [x] Skin was prepped per policy --> [x] Upper Arm Site: Chlorhexidine was used to prep the skin using a vigorous, side to side motion for a minimum of 30 seconds and was allowed to air dry for at least 30 seconds. [x] Patient was draped per policy (Full body drape for central venous catheter; fenestrated drape for arterial line insertion) [x] Everyone in the room wore a mask during the procedure Patient and/or Family Education: [x] Type of Catheter [x] Catheter Care [x] Hand Hygiene [x] Signs and Symptoms of Infection Sterile Technique Used Throughout Procedure: [x] Yes [] Sterility temporarily compromised. Procedure stopped immediately and safety concern discussed. Sterility maintained in subsequent attempt.* *If sterility is not achieved after safety discussion, follow escalation policy. Proceduralist: Shoaib Rolon APRN documented in this [facility]02-21-2023 Consult note* August Santana MD - 11/21/2022 2:16 PM ESTAssociated Order(s): IP CONSULT TO HEM/ONC Images from the original note were not included. [facility] Hematology Oncology Inpatient Consultation [facility] Siobhan Haas : 1960(62 y.o.) Date: November 20, 2022 Attending: Dr. Santana Reason for consult: Consulting - Johnathon Chowdhury MD Primary Care Physician - Oj Maddox Date of Admission - 11/10/2022 2:26 PM Subjective: Chief Complaint Patient presents with Post-op Problem Sent from office for admit. L AKA 1 wk ago. Possible wound infection. Surgery tmrw with dr jess CLARK Siobhan Haas is a 62 y.o. with PMHx of asthma, obesity, HTN, FAY, fibromyalgia, GERD, Right BKA, recent Left AKA (10/31/22) who was admitted from surgery OV for concern of cellulitis vs deep infection of left stump. Has undergone multiple I&Ds this admission (11/11, 11/14, 11/16) and is planned for another tomorrow (11/21) Hematology was consulted for anemia. Patient has been on iron supplementation in the past, but no documentation of iron deficiency. Her baseline Hgb ~8-9 for the last year or so. She did receive 2 units pRBCs during her last admission. Patient she is feeling quite fatigued. She is having a hard time staying awake for very long today.States she has never been told she has anemia in past but was taking iron supplements pre-op. Denies any hematologic medical history. 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) 07/27/2020 Asthma Cellulitis Constipation Depression Fibromyalgia GERD (gastroesophageal reflux disease) Hx of right BKA (CMS/HCC) (HCC) Hypertension Morbidly obese (CMS/HCC) (HCC) 02/03/2019 BMI 50.52 On home O2 FAY treated with BiPAP Osteoarthritis Osteomyelitis of right foot ([facility]) SCHEDULED FOR THE SURGERY ON 02/11/2019 Seasonal allergies Shortness of breath URSULA (stress urinary incontinence, female) Vertigo Past Surgical History: Procedure Laterality Date ABCESS DRAINAGE Right 08/07/2020 I&D of right BKA hematoma ANKLE SURGERY Left 12/19/2021 ankle I and D with placement of wound vac - dr alyssa PARKS ABDOMINOPLASTY BREAST SURGERY 2006 and abdomin removal for excess COLONOSCOPY COLONOSCOPY EXTREMITY SURGERY Left 01/24/2022 debridement necrotizing fasciitis LLE, wound vac FOOT SURGERY Right 02/11/2019 FOOT SURGERY Right 2019 [place] FOOT SURGERY Right 04/08/2019 I&D right foot with antibiotic spacer FOOT SURGERY Right 04/24/2019 I&D;, external fixator FOOT SURGERY Left 08/04/2021 peroneus longus tenolysis - Dr Gamino HYSTERECTOMY 1997 INCONTINENCE SURGERY 11/15/2015 synthetic mid urethral sling,cystoscopy JOINT REPLACEMENT LIPOMA RESECTION Right 2015 shoulder ORTHOPEDIC SURGERY Right 04/01/2019 I&D with removal hardware and antibiotic spacer placed OTHER SURGICAL HISTORY Left 11/19/2021 I+D L ankle OTHER SURGICAL HISTORY 09/21/2016 INTERSTIM STAGE II, COMPLEX ANALYSIS OF NEUROSTIMULATOR OTHER SURGICAL HISTORY Right 03/07/2019 debridement of right foot OTHER SURGICAL HISTORY 10/27/2021 Irrigation and debridement of left lower extremity OTHER SURGICAL HISTORY 07/27/2020 Excision of scar tissue, neuroma RIGHT below knee amputation OTHER SURGICAL HISTORY NERVE BLOCKS FROM PAIN MANAGEMENT OTHER SURGICAL HISTORY Right 04/02/2019 R foot skin graft/flap, wound debridement/Wound vac removal OTHER SURGICAL HISTORY Right 04/22/2019 right foot I and D OTHER SURGICAL HISTORY Right 05/06/2019 Right Below Knee Amputation (CPT 16457), #2 Excisional debridement right iliac crest (wound 7 cm length, 3 cm width, 7 cm depth) TONSILLECTOMY (HISTORICAL) TOTAL KNEE ARTHROPLASTY Left 2012 ARTHROSCOPY FIRST AND KNEE REPLACED WISDOM TOOTH EXTRACTION WOUND DEBRIDEMENT Left 10/28/2021 irrigation and debridment LLE Family History Problem Relation Name Age of Onset Pancreatic cancer Mother Pancreatic cancer Father Social History Socioeconomic History Marital status: Spouse name: Not on file Number of children: Not on file Years of education: Not on file Highest education level: Not on file Occupational History Not on file Tobacco Use Smoking status: Former Packs/day: 0.15 Types: Cigarettes Quit date: 10/01/1981 Years since quittin.1 Smokeless tobacco: Never Substance and Sexual Activity Alcohol use: Yes Alcohol/week: 0.0 standard drinks Drug use: No Sexual activity: Not on file Other Topics Concern Not on file Social History Narrative Has been in rehab facility in [place] Lives alone, son close Friends help Social Determinants of Health Financial Resource Strain: Not on file Food Insecurity: Not on file Transportation Needs: Not on file Physical Activity: Not on file Stress: Not on file Social Connections: Not on file Intimate Partner Violence: Not At Risk Fear of Current or Ex-Partner: No Emotionally Abused: No Physically Abused: No Sexually Abused: No Housing Stability: Not on file Allergies Allergen Reactions Amlodipine Swelling Clonazepam Other reaction(s): Other (See Comments) made me sleep & cry Ketamine Lisinopril Swelling Vancomycin Rash Prior to Admission medications Medication Sig Start Date End Date Taking? Authorizing Provider albuterol (2.5 MG/3ML) 0.083% nebulizer solution 2.5 mg. 03/23/22 Historical Provider, albuterol 108 (90 Base) MCG/ACT inhaler INHALE 2 PUFFS FOUR TIMES DAILY NEEDED FOR WHEEZING 03/23/22 Historical Provider, amitriptyline (Elavil) 100 MG tablet 08/09/22 Historical Provider, budesonide (Pulmicort) 0.25 MG/2ML nebulizer solution 12/23/21 Historical Provider, budesonide-formoterol (Symbicort) 160-4.5 MCG/ACT inhaler Inhale 2 puffs in the morning and 2 puffsin the evening. Historical Provider, cholecalciferol (Vitamin D-3) 1.25 MG (34088 UT) capsule Take by mouth 1 (one) time per week. 03/23/22 Historical Provider, citalopram (CeleXA) 40 MG tablet Take 40 mg by mouth in the morning. 03/23/22 Historical Provider, cyclobenzaprine (Flexeril) 10 MG tablet Take 10 mg by mouth Nightly. 07/19/15 Historical Provider, Eliquis 5 MG tablet take 2 tablets by mouth TONIGHT, THEN 2 TABLETS TWICE A DAY FOR 5... (REFER TO PRESCRIPTION NOTES). 12/6/22 Historical Provider, fluticasone (Flonase) 50 MCG/ACT nasal spray 1 spray. Historical Provider, gabapentin (Neurontin) 300 MG capsule Take 1 capsule (300 mg) by mouth Nightly. 11/02/22 12/02/22 Vinh Collins, DO Lidocaine 4 % patch Apply 1 patch topically daily. Do not start before November 03, 2022. 11/03/22 Vinh Collins, DO LORazepam (Ativan) 0.5 MG tablet Take 0.5 mg by mouth. Take 1-2 tablets every 8 hours as needed foranxiety Historical Provider, omeprazole (PriLOSEC) [address] capsule Take 1 capsule by mouth in the morning. 07/12/15 Historical Provider, tiotropium (Spiriva) [address] 18 mcg into inhaler and inhale in the morning.Historical Provider, Review of Systems Constitutional: Positive for fatigue. Negative for chills and fever. Respiratory: Negative for cough and shortness of breath. Cardiovascular: Negative for chest pain and palpitations. Gastrointestinal: Negative for abdominal pain, blood in stool, constipation, diarrhea, nausea and vomiting. Genitourinary: Negative for dysuria and hematuria. Musculoskeletal: Negative for arthralgias and myalgias. Neurological: Negative for dizziness, weakness, numbness and headaches. Hematological: Does not bruise/bleed easily. Objective: Vitals: 11/18/22202011/19/22 0730 11/20/22 0816 11/20/22 1319 BP: 120/77 104/59 119/64 125/63 BP Location: Right arm Patient Position: Sitting Pulse: 78 74 80 86 Resp: Temp: 36.4 C (97.5 F) 36.7 C (98.1 F) 36.7 C (98 F) TempSrc: Temporal Oral Temporal SpO2: 97% 96% 95% 97% Weight: Height: Wt Readings from Last 3 Encounters: 11/17/22 (!) 357 lb 6.4 oz (162 kg) 11/10/22 (!) 350 lb (159 kg) 10/30/22 (!) 350 lb (159 kg) Physical Exam Vitals reviewed. Constitutional: General: She is not in acute distress. Appearance: She is obese. HENT: Head: Normocephalic and atraumatic. Right Ear: External ear normal. Left Ear: External ear normal. Nose: Nose normal. Mouth/Throat: Mouth: Mucous membranes are moist. Pharynx: Oropharynx is clear. Comments: Patient wearing CPAP Eyes: Extraocular Movements: Extraocular movements intact. Conjunctiva/sclera: Conjunctivae normal. Cardiovascular: Rate and Rhythm: Normal rate and regular rhythm. Pulses: Normal pulses. Heart sounds: Normal heart sounds. Pulmonary: Effort: Pulmonary effort is normal. No respiratory distress. Breath sounds: Normal breath sounds. No wheezing. Abdominal: General: Bowel sounds are normal. Palpations: Abdomen is soft. Tenderness: There is no abdominal tenderness. Musculoskeletal: Cervical back: Normal range of motion. Right lower leg: No edema. Left lower leg: No edema. Skin: General: Skin is warm and dry. Neurological: Mental Status: She is alert and oriented to person, place, and time. Mental status is at baseline. INTAKE/OUTPUT: Intake/Output Summary (Last 24 hours) at 11/20/2022 1416 Last data filed at 11/20/2022 1200 Gross per 24 hour Intake 1440 ml Output 700 ml Net 740 ml Labs Lab Results Component Value Date NA 135 11/20/2022 K 4.2 11/20/2022 CL 102 11/20/2022 CO2 28 11/20/2022 BUN 20 (H) 11/20/2022 CREATININE 0.68 11/20/2022 GLUCOSE 104 (H) 11/20/2022 CALCIUM 8.4 11/20/2022 PROT 7.1 02/01/2022 BILITOT 0.4 02/01/2022 ALKPHOS 80 02/01/2022 AST 31 02/01/2022 Lab Results Component Value Date WBC 7.1 11/20/2022 HGB 8.5 (L) 11/20/2022 HCT 26.6 (L) 11/20/2022 MCV 79.7 (L) 11/20/2022 PLT 422 11/20/2022 Imaging ECG 12 lead Result Date: 11/11/2022 Sinus rhythm rate 92 Low voltage, precordial leads LVH by voltage LEFT AXIS DEVIATION Electronically Signed On 11-11-2022 7:17:49 EST by Yessenia Jara XR femur left 2+ views Result Date: 11/10/2022 Patient Name: SIOBHAN HAAS : 1960 Exam Date/Time: 11/10/2022 15:15 Procedure: XR FEMUR 2+ VW LEFT Ordering Provider: HUERTA MICHAEL Reason For Exam: surgical site drainage Clinical history: surgical site drainage COMPARISON: None. TECHNIQUE: Left femur, two views FINDINGS: Left crqqy-lli-tcyo amputation surgical changes with soft tissue edema of the distal thigh but no subcutaneous emphysema. No acute fractures or dislocations. Mild to moderate osteoarthritic changes of the left hip. Left [id number] amputation with soft tissue edema of the left thigh. Report Dictated on Electronically Signed By: Samson Jc Electronically Signed Date/Time: 11/10/2022 3:15 PM EST XR chest 1 view Result Date: 11/10/2022 Patient Name: SIOBHAN HAAS : 1960 Exam Date/Time: 11/10/2022 15:15 Procedure: XR CHEST 1 VIEW Ordering Provider: HUERTA MICHAELReason For Exam: pre-op Clinical History: pre-op Comparison: 10/30/2022 Technique: Single AP radiograph of the chest. Findings: Cardiomediastinal silhouette and pulmonary vasculature is within normal limits. The lungs and pleural spaces are clear. No sizable pneumothorax. Probable stimulation leads seen overlying the mid thoracic spine. Impression: No acute consolidative process. Report Dictated on Electronically Signed By: Samson Jc Electronically Signed Date/Time: 11/10/2022 3:13 PM EST Assessment and Plan: #Chronic microcytic anemia - baseline 8-9, 8.5 today - B12 - 325 (borderline low) - Folate wnl - 7.7 - Iron low @ 25, ferritin 18, Iron sat low at 8%, TIBC wnl 317 - Occult stool - pending Anemia is largely stable, suspect some blood loss during repeated trips to OR for I&Ds. Principal Problem: Surgical wound infection Active Problems: HLD (hyperlipidemia) Thank you for allowing us to participate in this patient's care. Please call with any questions. Electronically signed by KIERRA MACIAS DO 11/20/22 2:16 PM Patient and plan to be discussed with Dr. Santana. Please see their attestation for any further management. Thank you for involving us in patient's care. Addendum: Seen and discussed. I have personally performed a face to face diagnostic evaluation on this patient. I have reviewed and agree with the care plan. My assessment/plan are as follows: Microcytic, iron deficiency anemia in the setting of recent lower extremity amputations along with I&D procedures. She denies GI signs or symptoms. Reports that her last endoscopy was years ago. Would be reasonable for her to follow-up with GI as an outpatient for repeat endoscopy. Can continueon oral iron on discharge every other day. She is currently receiving a dose of IV iron. Can continue follow-up with primary care team and can follow-up with myself if needed. Dr. Scar Santana Hematology Oncology Time spent 55 minutes in reviewing chart/records, test results, [id number] with patient, documentation on the day of visit * Luz Marina Borrero - 11/21/2022 8:32 AM ESTAssociated Order(s): IP CONSULT TO INFECTIOUS DISEASES Images from the original note were not included. [facility] - Infectious Diseases Attending Consult Note Reason for Consult: Surgical site infection s/p L AKA on 10/31/22 History of Present Illness: Siobhan Haas is a 62 year old female, with pmhx of Rt BKA, Asthma, HTN, FAY, MDD. Pt had L AKA performed on 10/31/22, presented with concerns of surgical site infection in LLE residual limb on 11/10. Pt has had multiple I&Ds this admission (11/11, 11/14, 11/16) and is planned for another one today. Abx was held prior to first I&D in anticipation of obtaining wound cx. Pt was initially start ed on cefazolin 11/12-11/13, switched to ceftriaxone 11/13-11/20 after wound cultures grew E. Coli,and switched to piperacillin/tazobactam 11/20. Operative notes: 11/11: found a large hematoma which was drained. No active infection. Muscle was intact, no signs of necrosis, no communication with the underlying bone. 11/14: wound site was malodorous, wound site was opened, femur was found to be covered with muscle with no extension to bone being found. 11/16: Wound site showed good granulation tissue. No gross purulence, appearance of wound was much improved compared to previously on 11/14. No communications with the underlying femur were found. Pt also found to be anemic, with baseline Hgb of 8-9 for the past year or so, she has been on iron supplementation in the past. Hematology is following. Today, pt reports feeling comfortable. Denies fevers, chills, abd pain, n/v. Pain is well controlled on current regimen of Oxycodone, dilaudid, and tylenol. Plan to go back to OR at noon. 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 ([facility]) 07/27/2020 Asthma Cellulitis Constipation Depression Fibromyalgia GERD (gastroesophageal reflux disease) Hx of right BKA ([facility]) ([facility]) Hypertension Morbidly obese ([facility]) ([facility]) 02/03/2019 BMI 50.52 On home O2 FAY treated with BiPAP Osteoarthritis Osteomyelitis of right foot ([facility]) SCHEDULED FOR THE SURGERY ON 02/11/2019 Seasonal allergies Shortness of breath RUSULA (stress urinary incontinence, female) Vertigo Past Surgical History: Past Surgical History: Procedure Laterality Date ABCESS DRAINAGE Right 08/07/2020 I&D of right BKA hematoma ANKLE SURGERY Left 12/19/2021 ankle I and D with placement of wound vac - alyssa BELT ABDOMINOPLASTY BREAST SURGERY 2006 and abdomin removal for excess COLONOSCOPY COLONOSCOPY EXTREMITY SURGERY Left 01/24/2022 debridement necrotizing fasciitis LLE, wound vac FOOT SURGERY Right 02/11/2019 FOOT SURGERY Right 2018 [place] FOOT SURGERY Right 04/08/2019 I&D right foot with antibiotic spacer FOOT SURGERY Right 04/24/2019 I&D;, external fixator FOOT SURGERY Left 08/04/2021 peroneus longus tenolysis - Dr Gamino HYSTERECTOMY 1997 INCONTINENCE SURGERY 11/15/2015 synthetic mid urethral sling,cystoscopy JOINT REPLACEMENT LIPOMA RESECTION Right 2014 shoulder ORTHOPEDIC SURGERY Right 04/01/2019 I&D with removal hardware and antibiotic spacer placed OTHER SURGICAL HISTORY Left 11/19/2021 I+D L ankle OTHER SURGICAL HISTORY 09/21/2016 INTERSTIM STAGE II, COMPLEX ANALYSIS OF NEUROSTIMULATOR OTHER SURGICAL HISTORY Right 03/07/2019 debridement of right foot OTHER SURGICAL HISTORY 10/27/2021 Irrigation and debridement of left lower extremity OTHER SURGICAL HISTORY 07/27/2020 Excision of scar tissue, neuroma RIGHT below knee amputation OTHER SURGICAL HISTORY NERVE BLOCKS FROM PAIN MANAGEMENT OTHER SURGICAL HISTORY Right 04/02/2019 R foot skin graft/flap, wound debridement/Wound vac removal OTHER SURGICAL HISTORY Right 04/22/2019 right foot I and D OTHER SURGICAL HISTORY Right 05/06/2019 Right Below Knee Amputation (CPT 32254), #2 Excisional debridement right iliac crest (wound 7 cm length, 3 cm width, 7 cm depth) TONSILLECTOMY (HISTORICAL) TOTAL KNEE ARTHROPLASTY Left 2012 ARTHROSCOPY FIRST AND KNEE REPLACED WISDOM TOOTH EXTRACTION WOUND DEBRIDEMENT Left 10/28/2021 irrigation and debridment LLE Current Medications: Current Facility-Administered Medications Medication Dose Route Frequency Provider Last Rate Last Admin acetaminophen (Tylenol) tablet 1,000 mg 1,000 mg Oral q8h Kierra Monaco APRN - TRIM STENCIL MAKER 1,000 mg at 11/20/22 1854 albuterol (2.5 MG/3ML) 0.083% nebulizer solution 2.5 mg 2.5 mg Nebulization q4h PRN John Hebert MD amitriptyline (Elavil) tablet 25 mg 25 mg Oral Nightly John Hebert MD 25 mg at 11/20/222002 bisacodyl (Dulcolax) EC tablet 5 mg 5 mg Oral Daily César Schneider MD 5 mg at 11/20/22 0600 budesonide (Pulmicort) 0.5 MG/2ML nebulizer solution 0.5 mg 0.5 mg Nebulization BID PRN John Hebert MD citalopram (CeleXA) tablet 20 mg 20 mg Oral Daily John Hebert MD 20 mg at 11/21/22 0747 cyclobenzaprine (Flexeril) tablet 10 mg 10 mg Oral Nightly John Hebert MD 10 mg at 11/20/222002 ergocalciferol (Vitamin D2) capsule 1.25 mg 50,000 Units Oral Weekly John Hebert MD 1.25 mg at 11/19/22 0834 fluticasone (Flonase) nasal spray 1 spray 1 spray Each Nostril BID John Hebert MD 1 spray at 11/21/22 0748 gabapentin (Neurontin) capsule 100 mg 100 mg Oral TID MITCH Pacheco CNP 100 mg at 11/21/22 0747 HYDROmorphone (Dilaudid) injection 0.25 mg 0.25 mg IntraVENous q4h PRN MITCH Pacheco CNP Or HYDROmorphone (Dilaudid) injection 0.5 mg 0.5 mg IntraVENous q4h PRN MITCH Pacheco CNP 0.5 mg at 11/21/22 0454 influenza vac subunit quadrivalent (Flucelvax) injection 0.5 mL 0.5 mL IntraMUSCular Once John Hebert MD Lidocaine 4 % patch 1 patch 1 patch Topical Daily John Hebert MD 1 patch at 11/13/22 0935 mometasone-formoterol (Dulera 100) 100-5 MCG/ACT inhaler 2 puff 2 puff Inhalation BID John Hebert MD 2 puff at 11/21/22 0749 naloxone (Narcan) 0.4 mg in 0.9% sodium chloride 10 mL syringe IntraVENous PRN MITCH Pacheco CNP ondansetron ODT (Zofran-ODT) disintegrating tablet 4 mg 4 mg Oral q8h PRN John Hebert MD Or ondansetron (Zofran) injection 4 mg 4 mg IntraVENous q6h PRN John Hebert MD 4 mg at 11/16/22 1819 oxyCODONE (Roxicodone) immediate release tablet 10 mg 10 mg Oral q4h PRN MITCH Pacheco CNP Or oxyCODONE (Roxicodone) immediate release tablet 15 mg 15 mg Oral q4h PRN MITCH Pacheco CNP 15 mg at 11/21/22 0747 pantoprazole (ProtoNix) EC tablet 20 mg 20 mg Oral qAM AC John Hebert MD 20 mg at 11/20/22 0600 piperacillin-tazobactam (Zosyn) IVPB 3,375 mg 3,375 mg IntraVENous q8h Johnathon Chowdhury MD 12.5 mL/hr at 11/21/22 0700 3,375 mg at 11/21/22 0700 polyethylene glycol (PEG) 3350 (Miralax) packet 17 g 17 g Oral Daily John Hebert MD 17 g at 11/21/22 0747 senna-docusate sodium (Senokot-S) 8.6-50 MG tablet 2 tablet 2 tablet Oral Nightly John Hebert MD 2 tablet at 11/20/222002 sodium chloride 0.9 % infusion 5-250 mL/hr IntraVENous PRN John Hebert MD sodium chloride 0.9% (NS) flush 5-40 mL 5-40 mL IntraVENous q12h John Hebert MD 10 mL at sodium chloride 0.9% (NS) flush 5-40 mL 5-40 mL IntraVENous PRN John Hebert MD tiotropium (Spiriva) 18 MCG per inhalation capsule 18 mcg 1 capsule Inhalation Daily John Hebert MD 18 mcg at 11/21/22746 Allergies: Allergies Allergen Reactions Amlodipine Swelling Clonazepam Other reaction(s): Other (See Comments) made me sleep & cry Ketamine Lisinopril Swelling Vancomycin Rash Social History: Social History Socioeconomic History Marital status: Spouse name: Not on file Number of children: Not on file Years of education: Not on file Highest education level: Not on file Occupational History Not on file Tobacco Use Smoking status: Former Packs/day: 0.15 Types: Cigarettes Quit date: 10/01/1981 Years since quittin.1 Smokeless tobacco: Never Substance and Sexual Activity Alcohol use: Yes Alcohol/week: 0.0 standard drinks Drug use: No Sexual activity: Not on file Other Topics Concern Not on file Social History Narrative Has been in rehab facility in [place] Lives alone, son close Friends help Social Determinants of Health Financial Resource Strain: Not on file Food Insecurity: Not on file Transportation Needs: Not on file Physical Activity: Not on file Stress: Not on file Social Connections: Not on file Intimate Partner Violence: Not At Risk Fear of Current or Ex-Partner: No Emotionally Abused: No Physically Abused: No Sexually Abused: No Housing Stability: Not on file Family History: Family History Problem Relation Name Age of Onset Pancreatic cancer Mother Pancreatic cancer Father Review of Systems: Review of Systems Constitutional: Negative for chills and fever. Respiratory: Negative for shortness of breath. Cardiovascular: Negative for chest pain. Gastrointestinal: Negative for abdominal pain, constipation, diarrhea, nausea and vomiting. Vitals: Patient Vitals for the past 24 hrs: BP Temp Temp src Pulse Resp SpO2 11/21/22 0806 (!) 159/77 36.6 C (97.9 F) Temporal 91 22 98 % 11/20/22 2056 106/63 36.7 C (98 F) Temporal 85 16 95 % 11/20/22 1319 125/63 36.7 C (98 F) Temporal 86 18 97 % Physical Exam: Physical Exam Constitutional: General: She is not in acute distress. Appearance: She is normal weight. She is not ill-appearing or toxic-appearing. HENT: Head: Normocephalic and atraumatic. Right Ear: External ear normal. Left Ear: External ear normal. Nose: Nose normal. Eyes: Extraocular Movements: Extraocular movements intact. Conjunctiva/sclera: Conjunctivae normal. Cardiovascular: Rate and Rhythm: Normal rate and regular rhythm. Pulses: Normal pulses. Heart sounds: No murmur heard. Pulmonary: Effort: Pulmonary effort is normal. No respiratory distress. Breath sounds: Normal breath sounds. No wheezing. Abdominal: General: Abdomen is flat. There is no distension. Palpations: Abdomen is soft. Tenderness: There is no abdominal tenderness. Musculoskeletal: Comments: Rt BKA and Lt AKA with wound vac in place draining pink serosanguinous fluid, does not appear erythematous, no purulent drainage noted. Skin: General: Skin is warm and dry. Neurological: General: No focal deficit present. Mental Status: She is alert and oriented to person, place, and time. Psychiatric: Mood and Affect: Mood normal. Behavior: Behavior normal. Labs: Recent Labs 11/20/22 0026 11/20/22 1237 11/21/22 0137 NA 135 135 136 K 4.4 4.2 4.3 CL 104 102 103 CO2 26 28 32* BUN 24* 20* 24* CREATININE 0.65 0.68 0.75 GLUCOSE 110* 104* 117* CALCIUM 8.3* 8.4 8.5 Recent Labs 11/20/22 0026 11/20/22 1237 11/21/22 0137 WBC 7.4 7.1 6.0 HGB 7.5* 8.5* 8.6* HCT 24.1* 26.6* 27.8* PLT 431 422 432 LYMPHOPCT 22.3 19.7* 23.7 MONOPCT 14.0* 12.7* 12.8* BASOPCT 0.6 0.6 0.8 NEUTROABS 4.3 4.4 3.4 Micro: No results for input(s): COVID19 in the last 72 hours. Wound Cx 11/11: E. Coli Wound Cx 11/16: Enterobacter cloacae with ampC beta-lacatamse and enterococcus faecalis Lines: Left peripheral IV Wound vac on LLE Radiography/Echo/Other: XR femur 11/10/22: Left AKA with soft tissue edema of left thigh. 11/10/22 EKG: QTC 450 Antimicrobials,Start/End Dates: Cefazolin started 11/12 - 11/13 Ceftriaxone started 11/13 - 11/20 Piperacillin-tazobactam 11/20 -11/21 Meropenem started 11/21 Impression: Surgical site infection s/p Left AKA on 10/31/22 S/p multiple I&D Plan: - Discontinue piperacillin/tazobactam, and switch to Meropenem IV 1g daily x2 weeks to cover enterococcus faecalis and enterobacter cloacae - I&D today per Ortho - Pain management per primary Associated attestation - Cristian Maxwell DO - 11/21/2022 10:46 PM EST Patient seen and evaluated with resident/student. I performed/re-performed a history and physical examination of the patient and discussed his/her management with the resident/student. I reviewed theresident/student note and agree with the documented findings and plan of care with changes as notedwith italics. Ms. Haas is a 62 y/o F w/ PMH of R BKA, L AKA, HTN, asthma, FAY, MDD. Pt. is s/p L AKA 10/31; presented to [facility] 11/10 d/t concern of SSI; s/p multiple I&Ds 11/11, 11/14, 11/16. CXs + for E fecalis, E cloacae, E coli. The ID service is consulted for SSI of AKA site. Pt feeling well today, no new complaints. Pain is well-controlled. She denies F/C, N/V/D, cough, SOB, or abdominal pain. No further complaints. On exam, L AKA wound VAC in place; no visible bleeding or surrounding erythema; remainder of exam is unremarkable. Will d/c piperacillin/tazobactam; will switch to meropenem given CX results. Will continue for at least 2 weeks. Thank you for the consult. The ID service will continue to follow. More than 51% total time 75 Minutes counseling (or coordinating care) and providing discussion regarding plan of care, expectations, antimicrobials. * Kierra Monaco, CABLE DRILLER - TRIM STENCIL MAKER - 11/17/2022 12:24 PM ESTAssociated Order(s): IP CONSULT TO ANESTHESIOLOGY - ACUTE PAIN SERVICE Images from the original note were not included. PAGING: The Acute Pain Service providers are available exclusively via [employer]. APS does not utilize pagers. Due to the current environment of [place] [address], PPE was worn for the duration of all face to face encounters including but not limited to an N95 in accordance with CDC and hospital guidelines. 11/17/2022 Subjective: We have been asked to see this 62 y.o. female for acute pain management 2/2 surgical site infection, status post left above-knee amputation 10/31/2022, status post I&D with wound VAC application 11/11/2022, rpt I&D 11/14, rpt I&D 11/16 Reviewed X ray left femur 11/10/22. NAEON, no pages. On arrival, pt lying in bed. Pt appears well, comfortable. Pt talkative and cooperative throughout exam. States her pain is somewhat controlled with current pain regimen, however feels relief from Oxycodone does not last. C/O moderate/severe burning pain in bilateral lower extremities. We discussed increasing Oxycodone dose, patient agrees to plan. Tolerating diet, denies n/v. Patient educated on pain regimen, aware that oxycodone, dilaudid are PRN and patient must ask for these medications when needed. Educated patient to utilize oral pain medications as first line and reserve IV pain medications for severe breakthrough pain. Pt is realistic about pain control: Not all pain will be takenaway, but pain should be tolerable/manageable with current regimen. Pt instructed to have staff page APS if pain becomes uncontrolled when utilizing present regimen. Pt agreeable, denies further questions. Plan for OR Tuesday 11/21 PMH reviewed below Sedation score: 1: Awake and alert Pain Severity: moderate Pain Location: bilateral lower extremities Pain Quality: tender Aggravating Factors: Moving Alleviating Factors: Rest/Pain medications Pain Management: [place] pain management The patient's medical history and physical assessment, medications, allergies, patient's current medical condition, imaging, and labs were reviewed as part of this consultation. [x] Patient's Medications have been reviewed. [x] Patient's OARRS report (PDMP) have been reviewed. Social History Tobacco Use Smoking Status Former Packs/day: 0.15 Types: Cigarettes Quit date: 10/01/1981 Years since quittin.1 Smokeless Tobacco Never Social History Substance and Sexual Activity Alcohol Use Yes Alcohol/week: 0.0 standard drinks Social History Substance and Sexual Activity Drug Use No Objective Findings: Height: 170.2 cm (5' 7) Weight: (!) 157 kg (346 lb) BMI (Calculated): 54.18 Vital signs: Blood pressure 122/81, pulse 84, temperature 36.9 C (98.4 F), temperature source Temporal, resp. rate 18, height 1.702 m (5' 7), weight (!) 157 kg (346 lb), SpO2 96 %. 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 ([facility]) 07/27/2020 Asthma Cellulitis Constipation Depression Fibromyalgia GERD (gastroesophageal reflux disease) Hx of right BKA ([facility]) ([facility]) Hypertension Morbidly obese ([facility]) ([facility]) 02/03/2019 BMI 50.52 On home O2 FAY treated with BiPAP Osteoarthritis Osteomyelitis of right foot ([facility]) SCHEDULED FOR THE SURGERY ON 02/11/2019 Seasonal allergies Shortness of breath URSULA (stress urinary incontinence, female) Vertigo Past Surgical History: Procedure Laterality Date ABCESS DRAINAGE Right 08/07/2020 I&D of right BKA hematoma ANKLE SURGERY Left 12/19/2021 ankle I and D with placement of wound vac - dr alyssa BELT ABDOMINOPLASTY BREAST SURGERY 2006 and abdomin removal for excess COLONOSCOPY COLONOSCOPY EXTREMITY SURGERY Left 01/24/2022 debridement necrotizing fasciitis LLE, wound vac FOOT SURGERY Right 02/11/2019 FOOT SURGERY Right 2019 [place] FOOT SURGERY Right 04/08/2019 I&D right foot with antibiotic spacer FOOT SURGERY Right 04/24/2019 I&D;, external fixator FOOT SURGERY Left 08/04/2021 peroneus longus tenolysis - Dr Gamino HYSTERECTOMY 1997 INCONTINENCE SURGERY 11/15/2015 synthetic mid urethral sling,cystoscopy JOINT REPLACEMENT LIPOMA RESECTION Right 2014 shoulder ORTHOPEDIC SURGERY Right 04/01/2019 I&D with removal hardware and antibiotic spacer placed OTHER SURGICAL HISTORY Left 11/19/2021 I+D L ankle OTHER SURGICAL HISTORY 09/21/2016 INTERSTIM STAGE II, COMPLEX ANALYSIS OF NEUROSTIMULATOR OTHER SURGICAL HISTORY Right 03/07/2019 debridement of right foot OTHER SURGICAL HISTORY 10/27/2021 Irrigation and debridement of left lower extremity OTHER SURGICAL HISTORY 07/27/2020 Excision of scar tissue, neuroma RIGHT below knee amputation OTHER SURGICAL HISTORY NERVE BLOCKS FROM PAIN MANAGEMENT OTHER SURGICAL HISTORY Right 04/02/2019 R foot skin graft/flap, wound debridement/Wound vac removal OTHER SURGICAL HISTORY Right 04/22/2019 right foot I and D OTHER SURGICAL HISTORY Right 05/06/2019 Right Below Knee Amputation (CPT 93657), #2 Excisional debridement right iliac crest (wound 7 cm length, 3 cm width, 7 cm depth) TONSILLECTOMY (HISTORICAL) TOTAL KNEE ARTHROPLASTY Left 2012 ARTHROSCOPY FIRST AND KNEE REPLACED WISDOM TOOTH EXTRACTION WOUND DEBRIDEMENT Left 10/28/2021 irrigation and debridment LLE Family History Problem Relation Name Age of Onset Pancreatic cancer Mother Pancreatic cancer Father Patient Active Problem List Diagnosis History of right below knee amputation (HCC) 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) Cellulitis of lower leg Back pain Tear of peroneal tendon Depressive disorder Hemorrhage of rectum and anus HTN (hypertension) Pansystolic murmur Chest wall pain Asthma Asthma with acute exacerbation Pain from implanted hardware Obstructive sleep apnea syndrome Chronic obstructive lung disease (HCC) Morbid obesity (CMS/HCC) (HCC) Migraine headache Vitamin D deficiency Viral upper respiratory tract infection 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HCC) Swelling of left lower extremity Shortness of breath Seasonal allergies Superficial incisional surgical site infection Rheumatoid arthritis (HCC) Restless legs syndrome Anxiety Arthritis of right subtalar joint Attention deficit disorder of adult with hyperactivity Benign essential hypertension Bronchospasm Contusion of knee Edema of lower extremity Impaired fasting glucose Acquired deformity of left toe History of tonsillectomy Chronic knee pain after total replacement of left knee joint Weakness of left lower extremity History of hysterectomy Fibromyositis Increased body mass index (BMI) Gastroesophageal reflux disease Hiatal hernia [facility] senior care (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 antibiotics Left leg cellulitis Dehiscence of closure of skin, sequela Necrotizing soft tissue infection Infected wound Osteomyelitis (HCC) Hematoma Cellulitis of right foot Post-op pain Osteomyelitis of right foot (HCC) Open wound of right foot MSSA (methicillin susceptible Staphylococcus aureus) infection Right foot infection Hardware complicating wound infection (CMS/HCC) (HCC) Right foot pain Postoperative pain Cellulitis Lymphedema Stump pain ([facility]) Abrasion of lower leg with infection, initial encounter PE (pulmonary thromboembolism) (HCC) Surgical wound infection HLD (hyperlipidemia) Review of Systems Constitutional: Negative for chills and fever. HENT: Negative for trouble swallowing. Eyes: Negative for visual disturbance. Respiratory: Negative for shortness of breath. Cardiovascular: Negative for chest pain. Gastrointestinal: Negative for abdominal pain, nausea and vomiting. Musculoskeletal: Negative for arthralgias. Skin: Positive for wound (surgical). Neurological: Negative for dizziness and headaches. Psychiatric/Behavioral: Negative for confusion. The patient is not nervous/anxious. Physical Exam Vitals and nursing note reviewed. Constitutional: Appearance: Normal appearance. HENT: Head: Normocephalic and atraumatic. Eyes: General: Vision grossly intact. Cardiovascular: Rate and Rhythm: Normal rate. Pulmonary: Effort: Pulmonary effort is normal. Abdominal: Palpations: Abdomen is soft. Musculoskeletal: General: Tenderness (BLE) present. Skin: General: Skin is warm and dry. Neurological: Mental Status: She is alert and oriented to person, place, and time. Psychiatric: Mood and Affect: Mood normal. Behavior: Behavior normal. Lab Results Component Value Date CREATININE 0.67 11/17/2022 CREATININE 0.70 02/14/2022 AST 31 02/01/2022 Pain Management Adjuvants: 0700 --> 0700 11/16/2022 Scheduled APAP 0 mg Gabapentin 0 mg Lidocaine patches X PRN Morphine ( DC) 12 mg Methocarbamol Oxycodone 40 mg Assessment / Pain Management Plan: Acute Postsurgical BLE pain Multimodal pain regimen: BLOCK: n/a Continue Acetaminophen 1,000 mg po q8h scheduled ATC. Liver enzymes WNL, last checked: 02/01/22 Continue Flexeril 10 mg nightly Continue Lidocaine patch x 1. Cut and place as needed. Increase Oxycodone to 10 - 15 mg po q4h prn moderate to severe breakthrough pain. Discontinue IV Morphine Order Hydromorphone 0.25 mg - 0.5 mg IVP q4h prn moderate to severe breakthrough pain. Please utilize oral medications first. Order Gabapentin 100 mg TID Opioid Tolerant Some degree, patient with multiple prescriptions Percocet See #1 Constipation At risk for opioid induced constipation Patient currently receiving opioids for pain management necessitating a bowel regimen. Recommend initiating scheduled Sennakot-S 8.6/50mg, 1 tablet PO BID. Would also recommend Milk of Magnesia 400mg/5ml, administer 30mL by mouth daily PRN. Opioid Use Acute: Expected to be short term post op pain, see #1 OARRS reviewed for past two years. Percocet filled monthly Reviewed and educated patient on responsible use of opioids: after surgery, it can be normal to experience pain. If it is mild and you can move about without great difficulty or discomfort, you may not need to take pain medication. It is very important to take your pain medication only as needed. Avoiding excessive or unnecessary medication, will enable you to progress your activity each day to improve your muscle tone and movement, deep breathing, digestion, circulation and your body's abilityto heal itself. Will follow. Plan discussed with patient who appears to understand and agrees. PAGING: The Acute Pain Service providers are available exclusively via [employer]. APS does not utilize pagers. * Rusty Bassett MD - 11/10/2022 3:42 PM ESTAssociated Order(s): IP CONSULT TO ORTHOPAEDIC SURGERY Images from the original note were not included. [facility] EM[facility] DEPT [address] [place] [id number] Dept: [phone] Adult Orthopaedic Service Patient Name: Siobhan Haas Date of : 1960 Date: 11/10/22 Interval History: This is a 62 y.o. female with L SSI s/p AKA on 10/31. Patient reported to Dr. Bassett's office today (11/10) for a post-operative check. At the visit, there was concern about the clinical presentation ofthe left lower extremity surgical site. It was recommended that the patient report to [facility] ED for admission to the hospital for an irrigation and debridement of the left lower extremity with possible wound vacuum application. Subjective: In the ED, the patient is doing okay. Her pain is controlled. She reports no fevers, chills, or feelings of being ill. She states that she bumped her left lower extremity earlier this week and that is when she began appreciating some drainage. She has not noticed any purulent drainage or odor. She has no new numbness or tingling in the extremity. She denies LIZAMA, nausea, vomiting, chest pain, SOB. She had no concerns or questions about the plan for surgery tomorrow. Medications: Physical Exam: Vitals: 11/10/22 1432 BP: (!) 148/91 Pulse: 86 Resp: 20 Temp: 37.1 C (98.7 F) SpO2: 96% Intake and Output Summary (Last 24 hours) at Date Time No intake or output data in the 24 hours ending 11/10/22 1543 Left Lower Extremity: +TTP over stump surgical site Erythema present along surgical site +SILT to stump +HF intact Brisk cap refill about the stump Drainage present from lateral edge of wound as well as the middle aspect. No active bleeding. No odor appreciated. [place] intact along surgical site Labs: CBC: No results found for: WBC, HGB, HCT, PLT BMP:No results found for: NA, K, CL, CO2, BUN, CREATININE, CALCIUM, LABGLOM, GLUCOSE PT/INR: No results found for: PROTIME, INR APTT: No results found for: APTT Type and Screen: No results found for: RH, LABANTI ETHANOL: No results found for: ETOH DRUG SCREEN: No results found for: BARBITURATES, BENZOURQL, COCAINESCRN, METHADU, OPIAU, PCPURINE CRP: No results found for: CRP ESR: No results found for: SEDRATE Rads: Left femur: pending Assessment: This is a 62 y.o. female with L SSI s/p AKA on 10/31 Plan: -D/w Dr. Bassett -Plan for OR 11/11/2022 for left lower extremity irrigation and debridement with possible wound vacuum application -NPO at midnight -Please hold antibiotics in anticipation of operating room cultures unless patient becomes acutely ill -Cleared -Consented -Add pending -Labs in process -NWB LLE; up with assist -Admit to medicine -Pain control and medical management per medicine -Please hold DVT prophylaxis in anticipation of OR -Orthopaedic surgery will follow. 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 Bj Call MD PGY-1 Orthopaedic Surgery 11/10/2022 3:56 PM Dudley Holt MD Orthopaedic Surgery PGY2 11/10/2022 5:30 PM I saw and evaluated the patient, participating in the jose portions of the service. I reviewed the resident s note. I agree with the resident s findings and plan. Rusty Bassett MD documented in this [facility]02-11-2023 Hospital Discharge instructions* Discharge Instructions* Lulú Zhao MD - 11/11/2022 8:27 AM EST Images from the original note were not included. General Orthopedic Discharge Instructions The following instructions have been prepared to help you when you leave the hospital. These guidelines are for the post-surgery period. Activity: Ease into normal activity as tolerated. Medications: see medication instructions. Please be sure to read and understand the information provided by your pharmacy. Ask your Pharmacist if any questions. Wound Care and Hygiene: -Use the portable wound vacuum for up to 14 days after surgery. At 14 days, remove the vac and associated bandaging. If incision is clean and dry just leave open to air. If draining, cover with sterile bandaging. If the vac unit stops working take it off and use dry bandaging to cover the wound. Call Your Doctor for: -Excessive bleeding/swelling of incision -Fever with temperature above 100 oF Anesthesia Precautions: -Do Not operate any vehicle (automobile, bicycle, motorcycle) or power tools for 24 hours -Do Not drink alcoholic beverages for 24 hours -As precaution to prevent post-operative nausea and vomiting, start your diet with liquids, then progress to light foods. If tolerated, resume normal diet. Additional Instructions: Keep dressing clean until clinic follow up Follow up with Dr. Bassett in 10-14 days after the date of surgery Your instructions: Recommended diet: regular diet Recommended activity: activity as tolerated IV MEROPENEM TILL 11/30/22, CBC, BMP WEEKLY GENERAL ZONES GREEN ZONE: All Clear- Your Symptoms Are Under Control No recurrence of symptoms that led to hospitalization Able to do usual activities No fever No chest pain No shortness of breath This Means You Should: Continue taking your medications as prescribed Continue activity as tolerated Keep all doctor appointments YELLOW ZONE: Caution Recurrence of symptoms that led to hospitalization Fever of 100 degrees or higher Increased fatigue or restlessness Intolerant side-effects of medications Uneasy feeling or that something is wrong This Means You Should: Call your doctor for further instructions RED ZONE: Medical Alert Severe or unrelieved shortness of breath at rest Unrelieved chest pain Confusion or you can't think clearly This Means You Should Call 911 Immediately * Discharge Instr - Diet* Joanna Mcguire RD - 11/27/2022 2:45 PM EST Good nutrition is important when healing from an illness, injury, or surgery. Follow any nutrition recommendations given to you during your hospital stay. If you were given an oral nutrition supplement while in the hospital, continue to take this supplement at home. You can take it with meals, in-between meals, and/or before bedtime. These supplements can be purchased at most local grocery stores, pharmacies, and [employer]-stores. If you have any questions about your diet or nutrition, call the hospital and ask for the dietitian. To support increased protein needs for wound healing, please continue to consume a high protein oral supplement/protein shake 1-2/day. * Discharge Instr - JENNIFER* Evgeny Olea RN - 11/15/2022 8:30 AM EST * Attachments The following attachments cannot be sent through Care Everywhere. * Good Food Sources of Iron ([place]ian) documented in this [facility]02-10-2023 Emergency department Note* Haylee Hernandez RN - 11/10/2022 6:41 PM EST Patient transported to floor via medic and monitor. Haylee Hernandez RN 11/10/22 1841 * Renea Zarco RN - 11/10/2022 3:17 PM EST [facility] residents at bedside to assess patient Renea Zarco RN 11/10/22 1517 * Samantha Galvez MD - 11/10/2022 2:26 PM EST EMERGENCY DEPARTMENT ENCOUNTER Pt Name: Siobhan Haas Birthdate 1960 Date of evaluation: 11/10/2022 ED Provider: Samantha Galvez MD CHIEF COMPLAINT Chief Complaint Patient presents with Post-op Problem Sent from office for admit. L AKA 1 wk ago. Possible wound infection. Surgery tmrw with dr bassett HISTORY OF PRESENT ILLNESS (Location/Symptom, Timing/Onset, Context/Setting, Quality, Duration, Modifying Factors, Severity) Note limiting factors. I wore appropriate PPE for the entirety of this encounter. HPI Siobhan Haas is a 62 y.o. female with a recent history of left AKA and a past medical history of asthma, obesity, depression, hypertension, obstructive sleep apnea who presents to the emergency department of left stump cellulitis and possible deep infection. Patient recently had left AKA done end of October and she went for her regular follow-up with her regular orthopedic follow-up visit where she was noted to have erythema involving the surgical site and there was concern for for cellulitis and deep wound infection and so she was asked to come to the hospital. Over the past week patient noticed increased pain in her left stump. She denies any fever, chills, headache, dizziness, chestpain. Nursing Notes were reviewed. Limitations to history: None Outside historians: Family son and daughter REVIEW OF SYSTEMS Review of Systems Pertinent positives and negatives as per HPI. PAST MEDICAL HISTORY 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 ([facility]) 07/27/2020 Asthma Cellulitis Constipation Depression Fibromyalgia GERD (gastroesophageal reflux disease) Hx of right BKA ([facility]) ([facility]) Hypertension Morbidly obese ([facility]) ([facility]) 02/03/2019 BMI 50.52 On home O2 FAY treated with BiPAP Osteoarthritis Osteomyelitis of right foot ([facility]) SCHEDULED FOR THE SURGERY ON 02/11/2019 Seasonal allergies Shortness of breath URSULA (stress urinary incontinence, female) Vertigo SURGICAL HISTORY Past Surgical History: Procedure Laterality Date ABCESS DRAINAGE Right 08/07/2020 I&D of right BKA hematoma ANKLE SURGERY Left 12/19/2021 ankle I and D with placement of wound vac - dr alyssa PARKS ABDOMINOPLASTY BREAST SURGERY 2006 and abdomin removal for excess COLONOSCOPY COLONOSCOPY EXTREMITY SURGERY Left 01/24/2022 debridement necrotizing fasciitis LLE, wound vac FOOT SURGERY Right 02/11/2019 FOOT SURGERY Right 2019 [place] FOOT SURGERY Right 04/08/2019 I&D right foot with antibiotic spacer FOOT SURGERY Right 04/24/2019 I&D;, external fixator FOOT SURGERY Left 08/04/2021 peroneus longus tenolysis - Dr Gamino HYSTERECTOMY 1997 INCONTINENCE SURGERY 11/15/2015 synthetic mid urethral sling,cystoscopy JOINT REPLACEMENT LIPOMA RESECTION Right 2015 shoulder ORTHOPEDIC SURGERY Right 04/01/2019 I&D with removal hardware and antibiotic spacer placed OTHER SURGICAL HISTORY Left 11/19/2021 I+D L ankle OTHER SURGICAL HISTORY 09/21/2016 INTERSTIM STAGE II, COMPLEX ANALYSIS OF NEUROSTIMULATOR OTHER SURGICAL HISTORY Right 03/07/2019 debridement of right foot OTHER SURGICAL HISTORY 10/27/2021 Irrigation and debridement of left lower extremity OTHER SURGICAL HISTORY 07/27/2020 Excision of scar tissue, neuroma RIGHT below knee amputation OTHER SURGICAL HISTORY NERVE BLOCKS FROM PAIN MANAGEMENT OTHER SURGICAL HISTORY Right 04/02/2019 R foot skin graft/flap, wound debridement/Wound vac removal OTHER SURGICAL HISTORY Right 04/22/2019 right foot I and D OTHER SURGICAL HISTORY Right 05/06/2019 Right Below Knee Amputation (CPT 23134), #2 Excisional debridement right iliac crest (wound 7 cm length, 3 cm width, 7 cm depth) TONSILLECTOMY (HISTORICAL) TOTAL KNEE ARTHROPLASTY Left 2012 ARTHROSCOPY FIRST AND KNEE REPLACED WISDOM TOOTH EXTRACTION WOUND DEBRIDEMENT Left 10/28/2021 irrigation and debridment LLE CURRENT MEDICATIONS Previous Medications ACETAMINOPHEN (TYLENOL) 325 MG TABLET Take 2 tablets (650 mg) by mouth every 4 hours for 10 days. ALBUTEROL (2.5 MG/3ML) 0.083% NEBULIZER SOLUTION 2.5 mg. ALBUTEROL 108 (90 BASE) MCG/ACT INHALER INHALE 2 PUFFS FOUR TIMES DAILY NEEDED FOR WHEEZING AMITRIPTYLINE (ELAVIL) 100 MG TABLET BUDESONIDE (PULMICORT) 0.25 MG/2ML NEBULIZER SOLUTION BUDESONIDE-FORMOTEROL (SYMBICORT) 160-4.5 MCG/ACT INHALER Inhale 2 puffs in the morning and 2 puffsin the evening. CHOLECALCIFEROL (VITAMIN D-3) 1.25 MG (92345 UT) CAPSULE Take by mouth 1 (one) time per week. CITALOPRAM (CELEXA) 40 MG TABLET Take 40 mg by mouth in the morning. CYCLOBENZAPRINE (FLEXERIL) 10 MG TABLET Take 10 mg by mouth Nightly. ELIQUIS 5 MG TABLET take 2 tablets by mouth TONIGHT, THEN 2 TABLETS TWICE A DAY FOR 5... (REFER TO PRESCRIPTION NOTES). FLUTICASONE (FLONASE) 50 MCG/ACT NASAL SPRAY 1 spray. GABAPENTIN (NEURONTIN) 300 MG CAPSULE Take 1 capsule (300 mg) by mouth Nightly. LIDOCAINE 4 % PATCH Apply 1 patch topically daily. Do not start before November 03, 2022. OMEPRAZOLE (PRILOSEC) [address] CAPSULE Take 1 capsule by mouth in the morning. TIOTROPIUM (SPIRIVA) [address] 18 mcg into inhaler and inhale in the morning. ALLERGIES Amlodipine, Clonazepam, Ketamine, Lisinopril, and Vancomycin FAMILY HISTORY Family History Problem Relation Name Age of Onset Pancreatic cancer Mother Pancreatic cancer Father SOCIAL HISTORY Social History Socioeconomic History Marital status: Tobacco Use Smoking status: Former Packs/day: 0.15 Types: Cigarettes Quit date: 10/01/1981 Years since quittin.1 Smokeless tobacco: Never Substance and Sexual Activity Alcohol use: Yes Alcohol/week: 0.0 standard drinks Drug use: No Social History Narrative Has been in rehab facility in [place] Lives alone, son close Friends help SCREENINGS [place] Coma Scale Best Eye Response: Spontaneous Best Verbal Response: Oriented Best Motor Response: Follows commands [place] Coma Scale Score: 15 PHYSICAL EXAM ED Triage Vitals [11/10/22 1432] Temp Heart Rate Resp BP 37.1 C (98.7 F) 86 20 (!) 148/91 SpO2 Temp Source Heart Rate Source Patient Position 96 % Oral -- -- BP Location FiO2 (%) -- -- Physical Exam Vitals and nursing note reviewed. Constitutional: General: She is not in acute distress. Appearance: She is well-developed. HENT: Head: Normocephalic and atraumatic. Eyes: Conjunctiva/sclera: Conjunctivae normal. Cardiovascular: Rate and Rhythm: Normal rate and regular rhythm. Heart sounds: No murmur heard. Pulmonary: Effort: Pulmonary effort is normal. No respiratory distress. Breath sounds: Normal breath sounds. Abdominal: Palpations: Abdomen is soft. Tenderness: There is no abdominal tenderness. Musculoskeletal: Cervical back: Neck supple. Comments: Right and left AKA Left stump appears erythematous with some mild serosanguineous drainage along staple line Skin: General: Skin is warm and dry. Capillary Refill: Capillary refill takes less than 2 seconds. Neurological: Mental Status: She is alert. Psychiatric: Mood and Affect: Mood normal. DIAGNOSTIC RESULTS RADIOLOGY (Per Emergency Physician): Interpretation per the Radiologist below, if available at the time of this note: XR femur left 2+ views Final Result Left [id number] amputation with soft tissue edema of the left thigh. Report Dictated on Electronically Signed By: Samson Jc Electronically Signed Date/Time: 11/10/2022 3:15 PM EST XR chest 1 view Final Result LABS: Labs Reviewed SEDIMENTATION RATE, AUTOMATED C-REACTIVE PROTEIN CBC WITH AUTO DIFFERENTIAL PROTHROMBIN TIME BLOOD TYPE AND SCREEN GEL BASIC METABOLIC PANEL All other labs were within normal range or not returned as of this dictation. EMERGENCY DEPARTMENT COURSE and DIFFERENTIAL DIAGNOSIS/MDM: Vitals: Vitals: 11/10/22 1432 BP: (!) 148/91 Pulse: 86 Resp: 20 Temp: 37.1 C (98.7 F) TempSrc: Oral SpO2: 96% Weight: (!) 157 kg (346 lb) Height: 1.702 m (5' 7) The patient presented with a chief complaint of concern for infection at site of left AKA. The differential diagnosis associated with this patient's presentation includes surgical wound infection. Laboratory work-up and imaging ordered by orthopedic surgery residents per Dr. Bassett. No antibiotics started at this time per orthopedic surgery's request as they potentially would like to get wound cultures during the operation tomorrow. Patient stated that she was on oxycodone for pain at home and that she had not taken it this afternoon. She was given oxycodone 5 mg in the emergency department. Patient's pain was still not well controlled and she was given IV ketamine for pain control which relieved her symptoms. Patient was admitted to hospitalist service given her comorbidities with plan for the OR tomorrow with orthopedic surgery. 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 Surgical wound infection DISPOSITION Admit 11/10/2022 02:57:38 PM PATIENT REFERRED TO: No follow-up provider specified. DISCHARGE MEDICATIONS: New Prescriptions No medications on file (Comment: Please note this report has been produced using speech recognition software and may contain errors related to that system including errors in grammar, punctuation, and spelling, as well as words and phrases that may be inappropriate. If there are any questions or concerns please feel freeto contact the dictating provider for clarification.) Samantha Galvez MD (electronically signed) Emergency Medicine Provider Samantha Galvez MD Resident 11/12/22 0216 * Maikel Heurta DO - 11/10/2022 2:26 PM EST Emergency Department Encounter [facility] EMERGENCY DEPT Patient: Siobhan Haas : 1960 Date of Evaluation: 11/10/2022 ED Supervising Physician: Maikel Huerta DO I independently examined and evaluated Siobhan Haas. This will serve as my Supervisory note and shared attestation. I did perform a substantive portion of the visit including all aspects of the Medical Decision Making. I wore appropriate PPE for the entirety of this encounter. In brief, Siobhan Haas is a 62 y.o. female that presents to the emergency department to be admitted to have surgery on infected BKA stump. Is having significant discomfort. No fever. Focused exam: Vital signs noted. Well-appearing patient lying in bed, normal respiratory pattern without conversational dyspnea or respiratory distress. Normal speech and mental status. Obvious infection to the left BKA stump. Brief ED course/MDM: IV Sub associate of ketamine provided after my arrival to the room and the patient was experiencing significant discomfort. She had an adverse reaction to ketamine in the past, we will give a lower dose at a lower rate of administration to limit side effects. Hospitalized. All diagnostic, treatment, and disposition decisions were made by myself in conjunction with the Resident. I also supervised jose portions of any procedures performed by the Resident. For all further details of the patient's emergency department visit, please see their documentation. (Comment: Please note this report has been produced using speech recognition software and may contain errors related to that system including errors in grammar, punctuation, and spelling, as well as words and phrases that may be inappropriate. If there are any questions or concerns please feel freeto contact the dictating provider for clarification.) Maikel Huerta DO [employer] aMikel Huerta DO 11/10/22 1710 * Vijaya Hawkins RN - 11/10/2022 2:26 PM EST Bed: 26 Expected date: 11/10/22 Expected time: 1:58 PM Means of arrival: Comments: EMS Vijaya Hawkins RN 11/10/22 9743 documented in this [facility]02-10-2023 History and physical note* Kimo Stevens MD - 11/10/2022 3:22 PM EST Images from the original note were not included. Attending History and Physical Admit Date: 11/10/2022 PCP: Oj Maddox CHIEF COMPLAINT: Left stump pain Reason for Admission: Left arm cellulitis History Obtained From: patient HISTORY OF PRESENT ILLNESS: Siobhan is a 62 y.o. female who presents with with history of recent left AKA, asthma, obesity, depression, hypertension, obstructive sleep apnea who comes into the hospital for evaluation of left arm cellulitis and possible deep infection. Patient recently had left AKA done end of October and she went for her regular follow-up with her regular orthopedic follow-up visit where she was noted to have erythema involving the surgical site and there was concern for for cellulitis and deep wound infection and so she was asked to come to the hospital. Over the past week patient noticed increased pain in her left stump. She denies any fever, chills, headache, dizziness, chest pain. I did discuss wit h orthopedic resident at the bedside and plan is for surgical intervention tomorrow. At this time plan is to hold off on antibiotics and follow cultures. Assessment/plan: Medical Decision Making Data: Labs and chest x-ray ordered and pending at this time (LOW: 2x CAT1 or independent historian MOD: 3x CAT1 or 1x CAT3 EXTENSIVE: 3x CAT1 and 1x CAT3) Acute, acute on chronic, unstable/uncontrolled chronic problems: Left stump cellulitis and concern for deep wound infection Status post recent left AKA Stable chronic problems affecting care, new non-acute diagnoses: Obstructive sleep apnea History of asthma Hypertension Obesity As a result of the above findings & factors, the following mgmt was pursued: -Labs ordered, cultures ordered -Consult orthopedics -Plan for surgical intervention tomorrow -Hold off on antibiotics -Resume home medications -Hold anticoagulation - am labs, replace lytes prn - PT/OT/CM/SW - DVT prophylaxis: SCDs 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 ([facility]) 07/27/2020 Asthma Cellulitis Constipation Depression Fibromyalgia GERD (gastroesophageal reflux disease) Hx of right BKA ([facility]) ([facility]) Hypertension Morbidly obese (CMS/HCC) ([facility]) 02/03/2019 BMI 50.52 On home O2 FAY treated with BiPAP Osteoarthritis Osteomyelitis of right foot ([facility]) SCHEDULED FOR THE SURGERY ON 02/11/2019 Seasonal allergies Shortness of breath URSULA (stress urinary incontinence, female) Vertigo Past Surgical History: Past Surgical History: Procedure Laterality Date ABCESS DRAINAGE Right 08/07/2020 I&D of right BKA hematoma ANKLE SURGERY Left 12/19/2021 ankle I and D with placement of wound vac - dr alyssa PARKS ABDOMINOPLASTY BREAST SURGERY 2006 and abdomin removal for excess COLONOSCOPY COLONOSCOPY EXTREMITY SURGERY Left 01/24/2022 debridement necrotizing fasciitis LLE, wound vac FOOT SURGERY Right 02/11/2019 FOOT SURGERY Right 2019 [place] FOOT SURGERY Right 04/08/2019 I&D right foot with antibiotic spacer FOOT SURGERY Right 04/24/2019 I&D;, external fixator FOOT SURGERY Left 08/04/2021 peroneus longus tenolysis - Dr Gamino HYSTERECTOMY 1997 INCONTINENCE SURGERY 11/15/2015 synthetic mid urethral sling,cystoscopy JOINT REPLACEMENT LIPOMA RESECTION Right 2014 shoulder ORTHOPEDIC SURGERY Right 04/01/2019 I&D with removal hardware and antibiotic spacer placed OTHER SURGICAL HISTORY Left 11/19/2021 I+D L ankle OTHER SURGICAL HISTORY 09/21/2016 INTERSTIM STAGE II, COMPLEX ANALYSIS OF NEUROSTIMULATOR OTHER SURGICAL HISTORY Right 03/07/2019 debridement of right foot OTHER SURGICAL HISTORY 10/27/2021 Irrigation and debridement of left lower extremity OTHER SURGICAL HISTORY 07/27/2020 Excision of scar tissue, neuroma RIGHT below knee amputation OTHER SURGICAL HISTORY NERVE BLOCKS FROM PAIN MANAGEMENT OTHER SURGICAL HISTORY Right 04/02/2019 R foot skin graft/flap, wound debridement/Wound vac removal OTHER SURGICAL HISTORY Right 04/22/2019 right foot I and D OTHER SURGICAL HISTORY Right 05/06/2019 Right Below Knee Amputation (CPT 32281), #2 Excisional debridement right iliac crest (wound 7 cm length, 3 cm width, 7 cm depth) TONSILLECTOMY (HISTORICAL) TOTAL KNEE ARTHROPLASTY Left 2012 ARTHROSCOPY FIRST AND KNEE REPLACED WISDOM TOOTH EXTRACTION WOUND DEBRIDEMENT Left 10/28/2021 irrigation and debridment LLE Social History: Social History Socioeconomic History Marital status: Spouse name: Not on file Number of children: Not on file Years of education: Not on file Highest education level: Not on file Occupational History Not on file Tobacco Use Smoking status: Former Packs/day: 0.15 Types: Cigarettes Quit date: 10/01/1981 Years since quittin.1 Smokeless tobacco: Never Substance and Sexual Activity Alcohol use: Yes Alcohol/week: 0.0 standard drinks Drug use: No Sexual activity: Not on file Other Topics Concern Not on file Social History Narrative Has been in rehab facility in [place] Lives alone, son close Friends help Social Determinants of Health Financial Resource Strain: Not on file Food Insecurity: Not on file Transportation Needs: Not on file Physical Activity: Not on file Stress: Not on file Social Connections: Not on file Intimate Partner Violence: Not on file Housing Stability: Not on file Family History: Family History Problem Relation Name Age of Onset Pancreatic cancer Mother Pancreatic cancer Father Medications Prior to Admission: No current facility-administered medications on file prior to encounter. Current Outpatient Medications on File Prior to Encounter Medication Sig Dispense Refill acetaminophen (Tylenol) 325 MG tablet Take 2 tablets (650 mg) by mouth every 4 hours for 10 days. 30 tablet 0 albuterol (2.5 MG/3ML) 0.083% nebulizer solution 2.5 mg. albuterol 108 (90 Base) MCG/ACT inhaler INHALE 2 PUFFS FOUR TIMES DAILY NEEDED FOR WHEEZING amitriptyline (Elavil) 100 MG tablet budesonide (Pulmicort) 0.25 MG/2ML nebulizer solution budesonide-formoterol (Symbicort) 160-4.5 MCG/ACT inhaler Inhale 2 puffs in the morning and 2 puffsin the evening. cholecalciferol (Vitamin D-3) 1.25 MG (25206 UT) capsule Take by mouth 1 (one) time per week. citalopram (CeleXA) 40 MG tablet Take 40 mg by mouth in the morning. cyclobenzaprine (Flexeril) 10 MG tablet Take 10 mg by mouth Nightly. Eliquis 5 MG tablet take 2 tablets by mouth TONIGHT, THEN 2 TABLETS TWICE A DAY FOR 5... (REFER TO PRESCRIPTION NOTES). fluticasone (Flonase) 50 MCG/ACT nasal spray 1 spray. gabapentin (Neurontin) 300 MG capsule Take 1 capsule (300 mg) by mouth Nightly. 30 capsule 0 Lidocaine 4 % patch Apply 1 patch topically daily. Do not start before November 03, 2022. omeprazole (PriLOSEC) [address] capsule Take 1 capsule by mouth in the morning. [] oxyCODONE (Roxicodone) 5 MG immediate release tablet Take 1 tablet (5 mg) by mouth every 4 hours as needed for moderate pain (4-6) for up to 5 days. 15 tablet 0 tiotropium (Spiriva) [address] 18 mcg into inhaler and inhale in the morning. Allergies: Allergies Allergen Reactions Amlodipine Swelling Clonazepam Other reaction(s): Other (See Comments) made me sleep & cry Ketamine Lisinopril Swelling Vancomycin Rash REVIEW OF SYSTEMS: All pertinent review of systems reviewed and documented as per HPI Vitals: BP (!) 148/91 Pulse 86 Temp 37.1 C (98.7 F) (Oral) Resp 20 Ht 5' 7 (1.702 m) Wt (!) 346 lb (157 kg) SpO2 96% BMI 54.19 kg/m Pulse Ox: SpO2 Av % Min: 96 % Max: 96 % Supplemental O2: PHYSICAL EXAM: HEENT: no palor, no icterus. Lungs: CTA, decreased at bases CVS: RRR, no murmur GI: Soft, Non tender Ext: No edema, good pulses Neuro: Alert, No focal deficits DATA: CBC: No results for input(s): WBC, RBC, HGB, HCT, MCV, RDW, PLT in the last 72 hours. BMP:No results for input(s): NA, K, CL, CO2, BUN, CREATININE, GLUCOSE, CALCIUM, ANIONGAP in the last 72 hours. LIVER PROFILE:No results for input(s): AST, ALT, BILITOT, ALKPHOS, PROT in the last 72 hours. No lab exists for component: LABALBU PT/INR: No results for input(s): PROTIME, INR in the last 72 hours. CARDIAC ENZYMES: No results for input(s): TROPONINI in the last 72 hours. Procalcitonin: No results found for: PROCAL Urine Culture: No results found for this or any previous visit. COVID-19 PCR: No results for input(s): COVID19 in the last 72 hours. -PT/OT eval/increase activity -am labs, replace lytes prn -vitals per routine -home meds as ordered -see below for additional orders, further recommendations to follow Orders Placed This Encounter Procedures XR femur left 2+ views XR chest 1 view Sedimentation rate, automated C-reactive protein CBC auto differential Protime-INR Type and Screen Basic metabolic panel NPO diet NPO except: Sips of Water with Meds Assess skin Weight-bearing restrictions Neurovascular checks No Anticoagulants ECG 12 lead Admit to inpatient Code status: Prior Please forward a copy of this H&P to the patient's PCP. Thank you. Electronically signed by Kimo Stevens MD at 3:22 PM documented in this [facility]02-07-2023 Telephone encounter Note* Telephone Encounter - Shahla Galvin RN - 11/07/2022 12:36 PM EST Spoke with Terrell again. She states the pressure dressing helped and the patient is feeling better now. She will call back if an appt tomorrow is needed. Otherwise, they will keep appt already scheduled. [id number] Miscellaneous Notes* Telephone Encounter - Shahla Galvin RN - 11/07/2022 12:36 PM EST Spoke with Terrell again. She states the pressure dressing helped and the patient is feeling better now. She will call back if an appt tomorrow is needed. Otherwise, they will keep appt already scheduled. * Telephone Encounter - CARMELA Ramos - 11/07/2022 12:29 PM EST If they can get her to the [place] office tomorrow we can also see her then. * Telephone Encounter - Shahla Galvin RN - 11/07/2022 11:31 AM EST Spoke with Terrell, the nurse at the facility. She states the patient just came back from the ER where she received two units of blood due to a low H/H. She had a rough ride back from the hospital. Her wound is now bleeding, saturating through the dry dressing. Encouraged her to apply a pressure dressing to the wound and send her back to the ER if she is bleeding. She agreed to apply the pressure dressing and will see if the bleeding will stop. She agreed to send her to the ER again if the bleeding does not stop * Telephone Encounter - Bj Tineo MA - 11/06/2022 12:01 PM EST Scheduled for wound check on Sunday11/10/22 at 1:00p Relayed Jennifer's message regarding dry dressing * Telephone Encounter - CARMELA Ramos - 11/06/2022 11:48 AM EST They can take off the wound vac and place a dry dressing over the incision and change as needed. They should keep the incision dry. We can see her on Sunday for an incision check -- sooner if they have concerns about the incision * Telephone Encounter - Siobhan Maciel - 11/06/2022 11:22 AM EST Name of Caller: Ming moreno [place] Contact Terrell-[phone] Reason for Appointment: nursing facility calling. Pt had 2 canisters for wound vacc and now both are full. Staff asking what to do. Office Name: Dr Byrd documented in this [facility]02-07-2023 Telephone encounter Note* Telephone Encounter - CARMELA Ramos - 11/07/2022 12:29 PM EST If they can get her to the [place] office tomorrow we can also see her then. [employer] Work Phone: 1(224) 985-941202-07-2023 Telephone encounter Note* Telephone Encounter - Shahla Galvin RN - 11/07/2022 11:31 AM EST Spoke with Terrell, the nurse at the facility. She states the patient just came back from the ER where she received two units of blood due to a low H/H. She had a rough ride back from the hospital. Her wound is now bleeding, saturating through the dry dressing. Encouraged her to apply a pressure dressing to the wound and send her back to the ER if she is bleeding. She agreed to apply the pressure dressing and will see if the bleeding will stop. She agreed to send her to the ER again if the bleeding does not stop [employer]02-06-[address] Hubbard [facility] November 06, 2022 7:38pm Note Date/Time November 06, 2022 6 :51pm [facility] Medical Records Department [address] [place] [address] Emergency Department Summary 11/06/22 MR#: [id number] Acct: [id number] Name: SIOBHAN HAAS Rep #:[id number] : 1960 62 From: Maximino Hubbard MD PCP: GINO Vasques Sta tus:REG ER Location: ED HPI History of Present Illness Chief Complaint: Abn Labs Narrative Narrative: 62-year-old female past medical history of remote right leg below the knee amputation, [facility] with reported hemoglobin of 7.0. She states that she is not diabetic, but developed a wound on her left foot remotelythat never healed well. She developed necrotizing fasciitis. 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 She was seen at [facility] and had the surgery performed on Sunday of last week, on 31 October, she stayed there for few days, then was discharged to the nursing home facility, [facility], for rehabilitation. She states this is her third day at that facility. She was visiting with friends when she was told that she needed to go to the emergency department because her hemoglobin was 7 on her laboratorywork. She states she might of felt slightly dizzy today but that resolved and thought nothing of it. She is somewhat tired, but she states has been through quite a lot with her recent surgery. She denies any chest pain or shortness of breath. She has never received a blood transfusion in the past. No current bleeding from her surgical wound. [facility] Medical History Above knee amputation of right lower extremity Anemia Anxiety Anxiety and depression Asthma Asthma exacerbation Below knee amputation Benign essential HTN BiPAP (biphasic positive airway pressure) dependence Bronchospasm Chronic wound of extremity Current use of detention anticoagulation Depression Failure of outpatient treatment Family history of diabetes mellitus (DM) Fibromyalgia Former smoker GERD (gastroesophageal reflux disease) Hypertension Morbid obesity Necrotizing fasciitis Obstructive sleep apnea Pulmonary embolism Reflex sympathetic dystrophy Restless leg syndrome Rheumatoid arthritis Sleep apnea Home Medications potassium chloride 20 mEq tablet,extended release(part/cryst) 40 meq PO DAILY supplement 11/01/18 [History Last Taken 08/31/22] albuterol sulfate 90 mcg/actuation aerosol inhaler 2 puff inhalation Q6H PRN shortness of breath or wheezing #8.5 grams 05/11/21 [Rx Last Taken 08/24/22] valsartan 320 mg tablet 320 mg PO DAILY heart 05/19/21 [History Last Taken 08/31/22] omeprazole 40 mg capsule,delayed release 40 mg PO DAILY gerd 06/15/21 [History Last Taken 08/31/22] pramipexole 1.5 mg tablet 3 mg PO QHS rls 06/15/21 [History Last Taken 08/30/22] cyclobenzaprine 10 mg tablet 10 mg PO QHS PRN muscle spasm #0 tabs 03/09/22 [Rx Last Taken 08/31/22] amitriptyline 100 mg tablet 100 mg PO QHS PAIN AND SLEEP 08/31/22 [History Last Taken 08/30/22] cholecalciferol (vitamin D3) 1,250 mcg (50,000 unit) capsule 1,250 mcg PO MO SUPPLEMENT 08/31/22 [History Last Taken 08/28/22] famotidine 20 mg tablet 20 mg PO BID GERD 08/31/22 [History Last Taken 08/31/22] apixaban 5 mg tablet 5 mg PO BID blood thinner 10/16/22 [History Last Taken Unknown] budesonide-formoterol HFA 160 mcg-4.5 mcg/actuation aerosol inhaler (Symbicort) 2 puff inhalation BID asthma 10/16/22 [History Last Taken Unknown] duloxetine 30 mg capsule,delayed release 30 mg PO DAILY depression 10/16/22 [History Last Taken Unknown] escitalopram oxalate 20 mg tablet 20 mg PO DAILY depression 10/16/22 [History Last Taken Unknown] metoprolol succinate 50 mg tablet,extended release 24 hr 50 mg PO DAILY blood pressure 10/16/22 [History Last Taken Unknown] montelukast 10 mg tablet 10 mg PO DAILY asthma 10/16/22 [History Last Taken Unknown] ascorbic acid (vitamin C) 500 mg tablet 500 mg PO 1200,1700 30 days #60 tabs 10/20/22 [Rx Last Taken Unknown] cephalexin 500 mg capsule 500 mg PO Q6 10 days #40 caps 10/20/22 [Rx Last Taken Unknown] ferrous sulfate 325 mg (65 mg iron) tablet (FeroSul) 325 mg PO 1200,1700 30 days#60 tabs 10/20/22 [Rx Last Taken Unknown] Allergy/AdvReac Type Severity Reaction Status Date / Time vancomycin Allergy Rash Verified 11/06/22 18:33 amlodipine AdvReac Swelling Verified 11/06/22 18:33 Family History Mother Hypertension Cancer Pancreatic Diabetes Father Cancer pancreatic Brother Diabetes Grandfather Diabetes Surgical History Chronic knee pain after total replacement of left knee joint H/O foot surgery History of hysterectomy History of tonsillectomy Hx of breast reduction, elective Social History household members: significant other Smoking Status: Former smoker alcohol intake: never substance use type: does not use ROS ROS ED ROS Narrative Constitutional: No fever, no chills. Mild fatigue. HEENT: No sore throat. No neck pain. No loss of vision. No rhinorrhea. Cardiovascular: No chest pain. No palpitations. No pedal edema. Respiratory: No cough, no shortness of breath. Abdominal: No abdominal pain. No nausea. No vomiting. Genitourinary: No dysuria. No hematuria. Musculoskeletal: No myalgias. No arthralgias. Neurologic: No headaches. Slight dizziness today-resolved. No lightheadedness. Skin: No rash. No change in color. Psychiatric: No depression. No anxiety. EXAM Physical Exam Narrative Exam Narrative: Afebrile. Vital signs noted. HEENT: Normocephalic. Atraumatic. PERRL, EOMI. Neck soft and supple. No pointtenderness or step off. Cardiovascular: Regular rate and rhythm. No murmurs, rubs, or gallops appreciated. Respiratory: No tachypnea. Lungs clear to auscultation bilaterally. Gastrointestinal: Abdomen soft, nontender, with normoactive bowel sounds. No rebound or guarding. Neurological: Awake. Alert. Nonfocal, nonlateralizing. Skin: No rash. Normal color. No pallor. Musculoskeletal: No pedal edema. Full range of motion extremities. Bandage on left lower extremity clean, dry, intact without hemorrhage or dried blood. Right below the knee amputation, left [id number] amputation. Const Vital Signs: 11/06/22 18:31 11/06/22 19:03 11/06/22 19:04 Temperature 97.0 F L Temperature Source Oral Pulse Rate 91 Respiratory Rate 16 Respiratory Effort Normal Non-Labored Respiratory Pattern Normal Blood Pressure 132/70 H Blood Pressure Mean 90 Pulse Ox 94 Oxygen Delivery Method Room Air MDM MDM MDM Narrative Medical decision making narrative: Patient denies any bleeding from her surgical wound. Her bandage on her left lower extremity appears clean, dry, and intact without hemorrhage. I will repeat her hemoglobin but type and screen her. I reviewed her laboratory work and her hemoglobin is 6. 8 here with platelet count normal at 333. She was typed and crossmatched. I discussed with her the risks and benefits of transfusion and she acknowledged an understanding. She will sign the consent form. At this point in time, she will be transfused 2 units. After transfusion, I do feel that she could be discharged back to the [facility]. She will be signed out to the overnight physician to make final disposition on this patient which I anticipate is discharged back to the nursing home facility. At approximately 1930, patient requested her pain medication, stating that she gets oxycodone 5 mg every 4 hours orally. I entered this order. She was told that she may be here for at least 4 hours as each unit takes 2 hours to transfuse. Patient is in stable condition. Lab Data Attestation: I reviewed the patient's lab results. Labs: Laboratory Results - last 24 hr 11/06/22 18:49 WBC 6.7 RBC 2.83 L Hgb 6.8 L Hct 23.6 L MCV 83.4 MCH 24.0 L MCHC 28.8 L RDW Std Deviation 67.2 H RDW Coeff of Naga 22.8 H Plt Count 333 MPV 9.5 Differential Comment SCANNED Discharge Plan Triage Chief Complaint: Abn Labs ED Provider: Maximino Hubbard Dx/Rx/DC Orders Clinical Impression: Anemia requiring transfusions, History of left lower limb amputation Prescriptions: No Action albuterol sulfate 90 mcg/actuation HFA aerosol inhaler 2 puff inhalation Q6H PRN (Reason: shortness of breath or wheezing) Qty: 8.5 6RF Rx Instructions: administer with spacer potassium chloride 20 MEQ tablet 40 meq PO DAILY valsartan 320 mg tablet 320 mg PO DAILY omeprazole 40 mg capsule,delayed release(DR/EC) 40 mg PO DAILY pramipexole 1.5 mg tablet 3 mg PO QHS cyclobenzaprine 10 MG tablet 10 mg PO QHS PRN (Reason: muscle spasm) Qty: 0 0RF Label Comments: muscle relaxer famotidine 20 mg Tablet 20 mg PO BID amitriptyline 100 mg tablet 100 mg PO QHS cholecalciferol (vitamin D3) 1,250 mcg (50,000 unit) capsule 1,250 mcg PO MO Label Comments: TAKE 1 CAPSULE BY MOUTH EVERY WEEK metoprolol succinate 50 mg tablet extended release 24 hr 50 mg PO DAILY Label Comments: TAKE 1 TABLET BY MOUTH EVERY DAY montelukast 10 mg Tablet 10 mg PO DAILY escitalopram oxalate 20 mg tablet 20 mg PO DAILY Label Comments: TAKE 1 TABLET BY MOUTH ONCE DAILY FOR 30 DAYS. STOP CELEXA. duloxetine 30 mg capsule,delayed release(DR/EC) 30 mg PO DAILY Label Comments: TAKE 1 CAPSULE BY MOUTH 1 (ONE) budesonide-formoterol [Symbicort] 160-4.5 mcg/actuation HFA aerosol inhaler 2 puff inhalation BID Rx Instructions: administer with spacer, rinse mouth after each use apixaban 5 mg tablet 5 mg PO BID ascorbic acid (vitamin C) 500 mg Tablet 500 mg PO 1200,1700 30 Days Qty: 60 0RF Rx Instructions: take with iron cephalexin 500 mg Capsule 500 mg PO Q6 10 Days Qty: 40 0RF ferrous sulfate [FeroSul] 325 mg (65 mg iron) Tablet 325 mg PO 1200,1700 30 Days Qty: 60 0RF Primary Care Provider: Oj Madodx NP Referrals: Oj Maddox MAINTENANCE MECHANIC ENGINE, MAINTENANCE MECHANIC ENGINE-C [Primary Care Provider] - Disposition Disposition: Correction Facility Dis[facility] Location: [facility] What to do if you have Problems For any increased pain, shortness of breath, bleeding, nausea or vomiting, chestpain, or any unexpected problems, contact your Primary Care Provider. Call [facility] ([phone]) or report to the closest Emergency Room. Call 911 if necessary. 11/06/221937 <Electronically signed by Maximino Hubbard MD> Cosigner Signature (if applicable): CC: MAINTENANCE MECHANIC ENGINE-C Oj Maddox ~ Signed [facility] Work Phone: [phone]) 908-947402-06-2023 Telephone encounter Note* Telephone Encounter - Bj Tineo MA - 11/06/2022 12:01 PM EST Scheduled for wound check on Sunday11/10/22 at 1:00p Relayed Jennifer's message regarding dry dressing [id number] Telephone encounter Note* Telephone Encounter - CARMELA Ramos - 11/06/2022 11:48 AM EST They can take off the wound vac and place a dry dressing over the incision and change as needed. They should keep the incision dry. We can see her on Sunday for an incision check -- sooner if they have concerns about the incision [id number] Telephone encounter Note* Telephone Encounter - Siobhan Maciel - 11/06/2022 11:22 AM EST Name of Caller: Ming moreno [facility] Contact Terrell-[phone] Reason for Appointment: nursing facility calling. Pt had 2 canisters for wound vacc and now both are full. Staff asking what to do. Office Name: Dr Bassett-Benigno [facility] [id number] History of Present illness Narrative* Joanna Leslie PA-C - 11/02/2022 2:32 PM EST Orthopedic surgery progress note Orthopedic surgery to bedside for Prevena wound vacuum malfunction. Attempted to reinforce the Prevena wound vacuum using numerous Tegaderm dressings. Ultimately, the Lizeth pad component of the Prevena wound vacuum was exchanged. Following Lizeth pad exchange, the Prevena wound vacuum demonstrated expected suction without error. Patient to discharge to facility today. She will follow-up with Dr. Bassett as previously scheduled. Orthopaedic surgery will sign off. 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 * JORDANA Mariano - 11/02/2022 12:34 PM EST Occupational Therapy Facility/Department: Occupational Therapy Treatment NAME: Siobhan Haas : 1960 Date of Service: 11/02/2022 Discharge Recommendations: IP Rehab Assessment Assessment: Pt. 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 Pt.is far from base line, HIGH risk for falls and fair safety awareness. . recommend IP rehab upon d/cfor safety/independence w/ functional tasks. Prognosis: Good REQUIRES OT FOLLOW-UP: Yes Patient Diagnosis(es): The primary encounter diagnosis was Superficial incisional surgical site infection. Diagnoses of Abrasion of lower leg with infection, initial encounter, Cellulitis of left lower limb, and Stump pain ([facility]) were also pertinent to this visit. 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 ([facility]) (07/27/2020), Asthma, Cellulitis, Constipation, Depression, Fibromyalgia, GERD (gastroesophageal reflux disease), right BKA([facility]) ([facility]), Hypertension, Morbidly obese ([facility]) ([facility]) (02/03/2019), On home O2, FAY treatedwith BiPAP, Osteoarthritis, Osteomyelitis of right foot ([facility]), Seasonal allergies, Shortness of breath, URSULA (stress urinary incontinence, female), and Vertigo. She has no past medical history of Difficult intubation, PONV (postoperative nausea and vomiting), or Prolonged emergence from general anesthesia. has a past surgical history that includes Lipoma resection (Right, 2014); Other surgical history (Left, 11/19/2021); Breast surgery (2006); Other surgical history (09/21/2016); Other surgical history(Right, 03/07/2019); Other surgical history (10/27/2021); Colonoscopy; Wound debridement (Left, 10/28/2021); Joint replacement; Belt abdominoplasty; Foot surgery (Right, 02/11/2019); Other surgical history (07/27/2020); Colonoscopy; Leg Surgery (Left, 01/24/2022); Total knee arthroplasty (Left, 2012); Abscess drainage (Right, 08/07/2020); Ankle surgery (Left, 12/19/2021); Foot surgery (Right, 2018); Foot surgery (Right, 04/08/2019); Other surgical history; [place] tooth extraction; Other surgical history (Right, 04/02/2019); Incontinence surgery (11/15/2015); Other surgical history (Right, 04/22/2019); Other surgical history (Right, 05/06/2019); orthopedic surgery (Right, 04/01/2019); Foot surgery (Right, 04/24/2019); Foot surgery (Left, 08/04/2021); Hysterectomy (1996); and Tonsillectomy. Restrictions Restrictions/Precautions Restrictions/Precautions: Fall Risk, Weight Bearing Lower Extremity Weight Bearing Restrictions Right Lower Extremity Weight Bearing: Weight Bearing As Tolerated Left Lower Extremity Weight Bearing: Non Weight Bearing Position Activity Restriction Other position/activity restrictions: PIV, 2L NC, wound vac Cognition/Orientation Overall Cognitive Status: WFL Overall Orientation Status: Within Functional Limits Subjective Subjective Subjective: pt in bed upon arrival, pleasant and agreeable to OT, having spasms with L LE, informednursing Balance Sitting Balance: (pt. was able to sit 10 min's on EOB but had to lay back down due to severe spasms.) Bed mobility Rolling to Left: Minimal assistance Rolling to Right: Minimal assistance Supine to Sit: Minimal assistance Sit to Supine: Minimal assistance Scooting: Maximal assistance, 2 Person assistance Type of ROM/Therapeutic Exercise: AROM Comment: Pt. edu. on UE AROM ex's using red theraband 2 sets of 10 reps x 4 ex's with supv. Pt. started off doing ex's sitting EOB but was unable to continue due to L LE spasms. Once pt. returned to supine withj head elevated but was able to contin ue with the ex's. Plan Plan Comment: continue POC Safety Safety Devices in place: Yes Type of devices: Call light within reach, Left in bed, All fall risk precautions in place, Nurse notified Restraints Initially in place: No AM-PAC Score AM-PAC Inpatient Daily Activity Raw Score: 14 ADL Inpatient CMS G-Code Modifier: CK Goals Encounter Problems Encounter Problems (Active) Dressing Upper Extremities Patient will complete upper body dressing w/ SBA. (Not Addressed) Start: 11/01/22 Expected End: 11/29/22 Dressings Lower Extremities Patient will dress lower body w/ min assist. (Not Addressed) Start: 11/01/22 Expected End: 11/29/22 OT Misc Pt will complete 10 minutes of functional sitting tasks to improve overall sitting balance and activity tolerance. (Progressing) Start: 11/01/22 Expected End: 11/29/22 Transfers Patient will complete functional transfer with sliding board with min assist (Not Addressed) Start: 11/01/22 Expected End: 11/29/22 Education Education Given To: Patient Education Provided: OT Role, Plan of Care, Home Exercise Program Education Provided Comments: Pt. edu. on bed mobility, sitting tolerance and balance, UE AROM ex's using red therabands and safety. Education Method: Demonstration, Verbal Barriers to Learning: None Therapy Time Individual Co-treatment Time In 1135 Time Out 1210 Minutes 35 Timed Code Treatment Minutes: 35 Minutes (ther act-1, ther ex-1) JORDANA Hyatt * Siobhan MorrisNay Duran, RD - 11/02/2022 11:31 AM EST Nutrition Assessment Type and Reason for Visit: Initial, Positive Nutrition Screen (wound healing complications) Nutrition Recommendations/Plan: Continue with regular diet. Patient would benefit from an oral nutrition supplement. She tried Bandar and Ensure Max during previous admissions which she did not like. She consumed mocha Premier at home which is not on [facility] formulary. Plan for discharge today. Suggest trying Prostat (1 pkt provides 100 kcals, 15 gm protein)- this can be mixed with beverages like sprite, rosemary simin, or lemonade. Recommend MVI and Vitamin C to support wound healing. Suggest a current body weight as she is status post left AKA. Monitor and follow up accordingly. Malnutrition Assessment: Malnutrition Status: At risk for malnutrition (Comment) (increased needs for healing after surgery) Nutrition Assessment: Past medical history includes: depression, bilateral pulmonary emboli, cellulitis, SOB, Right BKA, GERD, FAY, vertigo, fibromyalgia, asthma, morbid obesity, HTN, osteomyelitis. Patient presented withleft leg swelling. Found to have left tibia surgical site infection in the setting of previous hardware placed to the left knee. Patient underwent Left AKA on 10/31. Patient is discharged to SNF today. Patient with door closed and sign posted to not disturb patient as she is trying to rest. Estimated Daily Nutrient Needs: Energy Requirements Based On: Kcal/kg Weight Used for Energy Requirements: Adjusted Weight for Energy Calculation (kg): 49.6 kg Total Energy Requirements (kcals/day): 8575-0956 kcals per day (25-30) Weight Used for Protein Requirements: Adjusted Weight in Kg Used for Protein Requirements: 49.6 kg Estimated Total Protein (g/day): 64-74 gm per day (1.3-1.5) Estimated Daily Total Fluid (ml/day): 1542-4864 ml/day or per MD Nutrition Related Findings: Rudi = 14, GI WDL, no edema. 11/02/22 Labs: Na 131 (low), BUN 25^, Cr 1.05^, BG 158^, Ca 8.0 (low).Meds: Eliquis, Celexa, Neurontin. Wound Type: Surgical Incision, Wound Vac Current Nutrition Therapies: Adult diet Regular Current Oral Intake Average Meal Intake: 76-100% (x 1 meal) Average Supplements Intake: None Ordered Anthropometric Measures: Height: 167.6 cm (5' 5.98) Current Body Weight: (unable obtain a current weight at this time- pt will need a CBW s/p left AKA) Admission Body Weight: 159 kg (10/30/22- weight source not specified) [place] Body Weight (lbs) (Calculated): 130 lbs [place] Body Weight (Kg) (Calculated): 59 kg Weight Adjustment For: Amputation % Weight Adjustment: 5.9 - BKA, 10.1 - AKA Total Adjusted Percentage (Calculated): 16 Adjusted [place] Body Weight (lbs) (Calculated): 109.2 lbs Adjusted [place] Body Weight (kg) (Calculated): 49.64 kg Nutrition Diagnosis: Increased nutrient needs related to increase demand for energy/nutrients as evidenced by wounds Nutrition Interventions: Nutrition Education/Counseling: No recommendation at this time Coordination of Nutrition Care: Continue to monitor while inpatient Goals: Goals: PO intake 75% or greater Nutrition Monitoring and Evaluation: Behavioral-Environmental Outcomes: None Identified Food/Nutrient Intake Outcomes: Food and Nutrient Intake, Supplement Intake Physical Signs/Symptoms Outcomes: Biochemical Data, GI Status, Fluid Status or Edema, Meal Time Behavior, Nutrition Focused Physical Findings, Skin, Weight Discharge Planning: Continue current diet, Continue Oral Nutrition Supplement Siobhan Duran RD Contact: *[phone] * Kierra Monaco APRN - [place] - 11/02/2022 11:00 AM EST PAGING: The Acute Pain Service providers are available exclusively via [employer]. APS does not utilize pagers. Due to the current environment of [place] [id number], PPE was worn for the duration of all face to face encounters including but not limited to an N95 in accordance with CDC and hospital guidelines. 11/02/2022 Subjective: We have been asked to see this 62 y.o. female for acute pain management s/p AKA on 10/31/22. Reviewed Chest X ray 10/30/22. Patient is prescribed Percocet PRN for chronic pain. JEN, xander valverde. On arrival, pt lying in bed, PT working with patient. Pt states block has worn off, c/o muscle spasms in bilateral lower extremities. Feels PRN robaxin helping to relieve spasm pain. Pain controlled. Tolerating diet, denies n/v. Plan for discharge to SNF this afternoon. PMH reviewed below Sedation score: 1: Awake and alert Pain Severity: moderate Pain Location: RLE Pain Quality: tender Aggravating Factors: Moving Alleviating Factors: Rest/Pain medications Social History Tobacco Use Smoking Status Former Packs/day: 0.15 Types: Cigarettes Quit date: 10/01/1981 Years since quittin.1 Smokeless Tobacco Never Social History Substance and Sexual Activity Alcohol Use Yes Alcohol/week: 0.0 standard drinks Social History Substance and Sexual Activity Drug Use No Pain Management: n/a The patient's medical history and physical assessment, medications, allergies, patient's current medical condition, imaging, and labs were reviewed as part of this consultation. [x] Patient's Medications have been reviewed. [x] Patient's OARRS report (PDMP) have been reviewed. Overdose Risk Score Objective Findings: Height: 167.6 cm (5' 5.98) Weight: (!) 159 kg (350 lb) BMI (Calculated): 56.52 Vital signs: Blood pressure 111/69, pulse 103, temperature 36.3 C (97.3 F), temperature source Temporal, resp. rate 18, height 1.676 m (5' 5.98), weight (!) 159 kg (350 lb), SpO2 96 %. 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 ([facility]) 07/27/2020 Asthma Cellulitis Constipation Depression Fibromyalgia GERD (gastroesophageal reflux disease) Hx of right BKA ([facility]) ([facility]) Hypertension Morbidly obese ([facility]) ([facility]) 02/03/2019 BMI 50.52 On home O2 FAY treated with BiPAP Osteoarthritis Osteomyelitis of right foot ([facility]) SCHEDULED FOR THE SURGERY ON 02/11/2019 Seasonal allergies Shortness of breath URSULA (stress urinary incontinence, female) Vertigo Past Surgical History: Procedure Laterality Date ABCESS DRAINAGE Right 08/07/2020 I&D of right BKA hematoma ANKLE SURGERY Left 12/19/2021 ankle I and D with placement of wound vac - dr alyssa PARKS ABDOMINOPLASTY BREAST SURGERY 2006 and abdomin removal for excess COLONOSCOPY COLONOSCOPY EXTREMITY SURGERY Left 01/24/2022 debridement necrotizing fasciitis LLE, wound vac FOOT SURGERY Right 02/11/2019 FOOT SURGERY Right 2019 [place] FOOT SURGERY Right 04/08/2019 I&D right foot with antibiotic spacer FOOT SURGERY Right 04/24/2019 I&D;, external fixator FOOT SURGERY Left 08/04/2021 peroneus longus tenolysis - Dr Gamino HYSTERECTOMY 1997 INCONTINENCE SURGERY 11/15/2015 synthetic mid urethral sling,cystoscopy JOINT REPLACEMENT LIPOMA RESECTION Right 2014 shoulder ORTHOPEDIC SURGERY Right 04/01/2019 I&D with removal hardware and antibiotic spacer placed OTHER SURGICAL HISTORY Left 11/19/2021 I+D L ankle OTHER SURGICAL HISTORY 09/21/2016 INTERSTIM STAGE II, COMPLEX ANALYSIS OF NEUROSTIMULATOR OTHER SURGICAL HISTORY Right 03/07/2019 debridement of right foot OTHER SURGICAL HISTORY 10/27/2021 Irrigation and debridement of left lower extremity OTHER SURGICAL HISTORY 07/27/2020 Excision of scar tissue, neuroma RIGHT below knee amputation OTHER SURGICAL HISTORY NERVE BLOCKS FROM PAIN MANAGEMENT OTHER SURGICAL HISTORY Right 04/02/2019 R foot skin graft/flap, wound debridement/Wound vac removal OTHER SURGICAL HISTORY Right 04/22/2019 right foot I and D OTHER SURGICAL HISTORY Right 05/06/2019 Right Below Knee Amputation (CPT 04451), #2 Excisional debridement right iliac crest (wound 7 cm length, 3 cm width, 7 cm depth) TONSILLECTOMY (HISTORICAL) TOTAL KNEE ARTHROPLASTY Left 2012 ARTHROSCOPY FIRST AND KNEE REPLACED WISDOM TOOTH EXTRACTION WOUND DEBRIDEMENT Left 10/28/2021 irrigation and debridment LLE Family History Problem Relation Name Age of Onset Pancreatic cancer Mother Pancreatic cancer Father Patient Active Problem List Diagnosis History of right below knee amputation (HCC) 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) Cellulitis of lower leg Back pain Tear of peroneal tendon Depressive disorder Hemorrhage of rectum and anus HTN (hypertension) Pansystolic murmur Chest wall pain Asthma Asthma with acute exacerbation Pain from implanted hardware Obstructive sleep apnea syndrome Chronic obstructive lung disease (HCC) Morbid obesity (CMS/HCC) ([facility]) Migraine headache Vitamin D deficiency Viral upper respiratory tract infection 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HCC) Swelling of left lower extremity Shortness of breath Seasonal allergies Superficial incisional surgical site infection Rheumatoid arthritis ([facility]) Restless legs syndrome Anxiety Arthritis of right subtalar joint Attention deficit disorder of adult with hyperactivity Benign essential hypertension Bronchospasm Contusion of knee Edema of lower extremity Impaired fasting glucose Acquired deformity of left toe History of tonsillectomy Chronic knee pain after total replacement of left knee joint Weakness of left lower extremity History of hysterectomy Fibromyositis Increased body mass index (BMI) Gastroesophageal reflux disease Hiatal hernia [facility] senior care (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 antibiotics Left leg cellulitis Dehiscence of closure of skin, sequela Necrotizing soft tissue infection Infected wound Osteomyelitis ([facility]) Hematoma Cellulitis of right foot Post-op pain Osteomyelitis of right foot ([facility]) Open wound of right foot MSSA (methicillin susceptible Staphylococcus aureus) infection Right foot infection Hardware complicating wound infection (CMS/HCC) ([facility]) Right foot pain Postoperative pain Cellulitis Lymphedema Stump pain ([facility]) Abrasion of lower leg with infection, initial encounter PE (pulmonary thromboembolism) ([facility]) Review of Systems Constitutional: Negative for chills and fever. HENT: Negative for trouble swallowing. Eyes: Negative for visual disturbance. Respiratory: Negative for shortness of breath. Cardiovascular: Negative for chest pain. Gastrointestinal: Negative for abdominal pain, nausea and vomiting. Musculoskeletal: Negative for arthralgias. Skin: Positive for wound (surgical). Neurological: Negative for dizziness and headaches. Psychiatric/Behavioral: Negative for confusion. The patient is not nervous/anxious. Physical Exam Vitals and nursing note reviewed. Constitutional: Appearance: Normal appearance. HENT: Head: Normocephalic and atraumatic. Eyes: General: Vision grossly intact. Cardiovascular: Rate and Rhythm: Normal rate. Pulmonary: Effort: Pulmonary effort is normal. Abdominal: Palpations: Abdomen is soft. Musculoskeletal: General: Tenderness (bilateral lower extremities) present. Skin: General: Skin is warm and dry. Comments: Bilateral lower extremities -site C/D/I Neurological: Mental Status: She is alert and oriented to person, place, and time. Psychiatric: Mood and Affect: Mood normal. Behavior: Behavior normal. Pain Management Adjuvants: 0700 --> 0700 10/31/22 11/01/22 Scheduled APAP 650 mg 2,600 mg Gabapentin 0 mg Lidocaine patches PRN Hydromorphone 2 mg 1 mg Methocarbamol Oxycodone 20 mg 30 mg Lab Results Component Value Date CREATININE 1.05 (H) 11/02/2022 CREATININE 0.70 02/14/2022 AST 31 02/01/2022 Assessment / Pain Management Plan: Acute Postsurgical RLE pain Multimodal pain regimen: BLOCK: Popliteal Continue Acetaminophen 650 mg po q4h scheduled ATC. Liver enzymes WNL, last checked: 02/01/22 Continue Lidocaine patch x 1. Cut and place as needed. Continue Oxycodone 5 - 10 mg po q4h prn moderate to severe breakthrough pain. Continue at SNF. Continue Hydromorphone 0.25 mg - 0.5 mg IVP q4h prn moderate to severe breakthrough pain. Please utilize oral medications first. Continue Gabapentin 300 mg po nightly. Continue Methocarbamol 1000 mg PO TID PRN- continue at SNF. 2. Opioid Tolerant Some degree, patient with multiple prescriptions Percocet See #1 See #1 3.Constipation At risk for opioid induced constipation Patient currently receiving opioids for pain management necessitating a bowel regimen. Recommend initiating scheduled Sennakot-S 8.6/50mg, 1 tablet PO BID. Would also recommend Milk of Magnesia 400mg/5ml, administer 30mL by mouth daily PRN. LBM:- 4. Opioid Use Acute: Expected to be short term post op pain, see #1 OARRS reviewed for past two years. Intermittent prescriptions for Percocet Reviewed and educated patient on responsible use of opioids: after surgery, it can be normal to experience pain. If it is mild and you can move about without great difficulty or discomfort, you may not need to take pain medication. It is very important to take your pain medication only as needed. Avoiding excessive or unnecessary medication, will enable you to progress your activity each day to improve your muscle tone and movement, deep breathing, digestion, circulation and your body's abilityto heal itself. Patient pain is well controlled at this time on current pain regimen. We will sign off at this time. Please re-consult our service if patient's pain becomes uncontrolled. Thank you for inviting us toparticipate in the care of this patient. Plan discussed with patient who appears to understand and agrees. PAGING: The Acute Pain Service providers are available exclusively via [employer]. APS does not utilize pagers. * Vinh Collins, DO - 11/02/2022 10:05 AM EST Images from the original note were not included. Hospitalist Progress Note 11/02/2022 Subjective: Admit Date: 10/30/2022 PCP: Oj Maddox Room#: [id number]/[id number] A Interval History: No overnight issues/complaints. Received auth for transfer to facility. Adult diet Regular 24HR INTAKE/OUTPUT: Intake/Output Summary (Last 24 hours) at 11/02/2022 1005 Last data filed at 11/01/2022 1100 Gross per 24 hour Intake 500 ml Output -- Net 500 ml 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 ([facility]) 07/27/2020 Asthma Cellulitis Constipation Depression Fibromyalgia GERD (gastroesophageal reflux disease) Hx of right BKA ([facility]) ([facility]) Hypertension Morbidly obese ([facility]) ([facility]) 02/03/2019 BMI 50.52 On home O2 FAY treated with BiPAP Osteoarthritis Osteomyelitis of right foot ([facility]) SCHEDULED FOR THE SURGERY ON 02/11/2019 Seasonal allergies Shortness of breath URSULA (stress urinary incontinence, female) Vertigo LABS: CBC: Recent Labs 10/30/22 1550 10/31/22 1948 11/01/224611/02/22128 WBC 6.9 -- 15.7* 11.6* RBC 4.47 -- 3.97 3.01* HGB 10.6* 10.3* 9.8* 7.5* HCT 33.9* 32.4* 31.8* 23.6* MCV 75.8* -- 80.1 78.2* RDW 23.1* -- 23.7* 25.3* PLT 398 -- 337 290 BMP: Recent Labs 10/30/22 1550 11/01/224611/02/22128 NA 137 134* 131* K 3.9 4.4 3.6 CL 102 105 103 CO2 28 22 20* BUN 15 13 25* CREATININE 0.74 0.73 1.05* GLUCOSE 95 266* 158* CALCIUM 9.0 8.1* 8.0* ANIONGAP 7 8 8 LIVER PROFILE:No results for input(s): AST, ALT, BILITOT, ALKPHOS, PROT in the last 72 hours. No lab exists for component: LABALBU PT/INR: Recent Labs 10/30/22 1550 PROTIME 10.3 INR 1.0 CARDIAC ENZYMES: No results for input(s): TROPONINI in the last 72 hours. Procalcitonin: No results found for: PROCAL COVID-19 PCR: No results for input(s): COVID19 in the last 72 hours. Objective: Vitals: BP 134/86 (BP Location: Left arm, Patient Position: Sitting) Pulse 101 Temp 36.3 C (97.4 F) (Temporal) Resp 16 Ht 5' 5.98 (1.676 m) Wt (!) 350 lb (159 kg) SpO2 94% BMI 56.52 kg/m Pulse Ox: SpO2 Av.2 % Min: 92 % Max: 98 % Supplemental O2: O2 Flow Rate (L/min): 2 L/min General appearance: No apparent distress, appears stated age and cooperative with exam HEENT: Normal cephalic, atraumatic without obvious deformity. Pupils equal, round, and reactive to light. Extra ocular muscles intact. Conjunctivae/corneas clear. Neck: Supple, with full range of motion. No jugular venous distention. Trachea midline. No lymphadenopathy. Respiratory: Normal respiratory effort. Clear to auscultation, bilaterally without Rales/Wheezes/Rhonchi. Cardiovascular: Regular rate and rhythm with normal S1/S2 without murmurs, rubs or gallops. Abdomen: Soft, non-tender, non-distended with normal bowel sounds. No rebound or guarding. Musculoskeletal: RIGHT BKA; LEFT AKA wound vac in place Skin: Skin color, texture, turgor normal. No rashes or lesions. Neurologic: Neurovascularly intact without any focal sensory/motor deficits. Cranial nerves: II-XIIintact, grossly non-focal. Medications: Current Facility-Administered Medications: acetaminophen (Tylenol) tablet 650 mg, 650 mg, Oral, Q4H, MITCH Butcher CNP, 650 mg at 11/02/22 0531 albuterol (2.5 MG/3ML) 0.083% nebulizer solution 2.5 mg, 2.5 mg, Nebulization, 4x daily PRN, DO Sloane amitriptyline (Elavil) tablet 100 mg, 100 mg, Oral, Nightly, Maged Wilder MD, 100 mg at 11/01/222008 apixaban (Eliquis) tablet 5 mg, 5 mg, Oral, BID, Vinh Collins DO, 5 mg at 11/02/2235 citalopram (CeleXA) tablet 40 mg, 40 mg, Oral, Daily, Maged Wilder MD, 40 mg at 11/02/22834 gabapentin (Neurontin) capsule 300 mg, 300 mg, Oral, Nightly, MITCH Butcher CNP, 300 mg at 11/01/222008 HYDROmorphone (Dilaudid) injection 0.25 mg, 0.25 mg, IntraVENous, q4h PRN OR HYDROmorphone (Dilaudid) injection 0.5 mg, 0.5 mg, IntraVENous, q4h PRN, MITCH Butcher CNP, 0.5 mg at Lidocaine 4 % patch 1 patch, 1 patch, Topical, Daily, MITCH Butcher CNP, 1 patch at 11/02/22835 LORazepam (Ativan) tablet 0.5 mg, 0.5 mg, Oral, q6h PRN, Maged Wilder MD, 0.5 mg at methocarbamol (Robaxin) tablet 1,000 mg, 1,000 mg, Oral, q8h PRN, MITCH Butcher CNP, 1,000 mg at 11/02/22 0333 mometasone-formoterol (Dulera 100) 100-5 MCG/ACT inhaler 2 puff, 2 puff, Inhalation, BID, Maged Wilder MD, 2 puff at 11/02/22 0836 naloxone (Narcan) 0.4 mg in 0.9% sodium chloride 10 mL syringe, , IntraVENous, PRN, Siobhan Esquivel APRN - [place] oxyCODONE (Roxicodone) immediate release tablet 5 mg, 5 mg, Oral, q4h PRN OR oxyCODONE (Roxicodone) immediate release tablet 10 mg, 10 mg, Oral, q4h PRN, MITCH Butcher CNP, 10 mg at 11/02/22 0835 sodium chloride 0.9 % infusion, 50 mL/hr, IntraVENous, Continuous, Maged Wilder MD, Stopped at 10/31/22 1928 Assessment LLE cellulitis and Left tibia surgical site infection in the setting of previous hardware placed left knee s/p LEFT AKA on 10/31 H/o PE on chronic OAC with eliquis Anxiety/depression Fibromyalgia GERD Morbid obesity FAY/OHS Hypertension Plan -ortho following -am labs, replace lytes prn -increase activity/PT/OT>>IP rehab recommended -DVT prophylaxis: [] Lovenox [] Heparin [] SCDs [x] Encourage ambulation [x] Already on Anticoagulation(Eliquis) Advance Directive: No Order Anticipated Discharge - Date - 11/02/22 - Location - post acute facility - Pending the following - COVID-19 test Vinh Collins DO Division of Hospitalist Medicine [place] [place] Haylee Torres OT - 11/01/2022 2:20 PM EST Occupational Therapy Facility/Department: Occupational Therapy Initial Evaluation NAME: Siobhan Haas : 1960 Date of Service: 11/01/2022 Discharge Recommendations: IP Rehab Assessment Performance deficits / Impairments: Decreased functional mobility , Decreased ADL status, Decreasedstrength, Decreased endurance, Decreased balance, Decreased high-level IADLs, Decreased posture Assessment: OT eval completed, deficits as above. not at functional baseline. fatigues w/ minimal activity. will need significant therapies to return to prior level of function. pt motivated for therapies. recommend IP rehab upon d/c for safety/independence w/ functional tasks. Prognosis: Good Decision Making: Medium Complexity REQUIRES OT FOLLOW-UP: Yes Activity Tolerance Activity Tolerance: Patient limited by fatigue Activity Tolerance: fatigues quickly and becomes SOBOE w/ bed level activity Patient Diagnosis(es): The primary encounter diagnosis was Superficial incisional surgical site infection. Diagnoses of Abrasion of lower leg with infection, initial encounter and Cellulitis of left lower limb were also pertinent to this visit. 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 ([facility]) (07/27/2020), Asthma, Cellulitis, Constipation, Depression, Fibromyalgia, GERD (gastroesophageal reflux disease), right BKA([facility]) ([facility]), Hypertension, Morbidly obese ([facility]) ([facility]) (02/03/2019), On home O2, FAY treatedwith BiPAP, Osteoarthritis, Osteomyelitis of right foot ([facility]), Seasonal allergies, Shortness of breath, URSULA (stress urinary incontinence, female), and Vertigo. She has no past medical history of Difficult intubation, PONV (postoperative nausea and vomiting), or Prolonged emergence from general anesthesia. has a past surgical history that includes Lipoma resection (Right, 2014); Other surgical history (Left, 11/19/2021); Breast surgery (2006); Other surgical history (09/21/2016); Other surgical history(Right, 03/07/2019); Other surgical history (10/27/2021); Colonoscopy; Wound debridement (Left, 10/28/2021); Joint replacement; Belt abdominoplasty; Foot surgery (Right, 02/11/2019); Other surgical history (07/27/2020); Colonoscopy; Leg Surgery (Left, 01/24/2022); Total knee arthroplasty (Left, 2012); Abscess drainage (Right, 08/07/2020); Ankle surgery (Left, 12/19/2021); Foot surgery (Right, 2018); Foot surgery (Right, 04/08/2019); Other surgical history; [place] tooth extraction; Other surgical history (Right, 04/02/2019); Incontinence surgery (11/15/2015); Other surgical history (Right, 04/22/2019); Other surgical history (Right, 05/06/2019); orthopedic surgery (Right, 04/01/2019); Foot surgery (Right, 04/24/2019); Foot surgery (Left, 08/04/2021); Hysterectomy (1996); and Tonsillectomy. Restrictions Restrictions/Precautions Restrictions/Precautions: Fall Risk, Weight Bearing (wound vac LLE, 1L O2 via NC) Required Braces or Orthoses?: No Lower Extremity Weight Bearing Restrictions Right Lower Extremity Weight Bearing: Weight Bearing As Tolerated Left Lower Extremity Weight Bearing: Non Weight Bearing Vision/Hearing Vision: Within Functional Limits Hearing: Functional/adequate for paticipation in therapy Cognition/Orientation Overall Cognitive Status: WFL Overall Orientation Status: Within Normal Limits Subjective General Chart Reviewed: Yes Patient Assessed for Rehabilitation Services: Yes Additional Pertinent Hx: R BKA (uses prosthetic) Family / Caregiver Present: Yes (2 sisters and boyfriend) Diagnosis: pt to [facility] w/ swelling and pain in LLE. admitted w/ abrasion of LE w/ infection. underwent L AKA on 10/31. Subjective Subjective: pt in bed upon arrival, pleasant and agreeable to OT. General Comments Comments: $ Pain Assessment Pain Assessment: (reports minimal soreness but that she's staying on top of pain meds) Social/Functional History Social/Functional History Lives With: Family Type of Home: Apartment Home Layout: One level Home Access: Level entry Bathroom Shower/Tub: Walk-in shower Bathroom Toilet: Standard Bathroom Equipment: (moving into new place & unsure if she has grab bars in bathroom) Home Equipment: Rolling walker, Wheelchair-electric Receives Help From: Family ADL Assistance: Independent Homemaking Assistance: Independent (w/c level) Ambulation Assistance: Independent (w/ FWW and RLE prosthetic) Transfer Assistance: Independent Additional Comments: pt is independent w/ RLE prosthetic and FWW, however does use power w/c to complete IADLs Objective Observation/Palpation Posture: Fair Balance Sitting Balance: Minimal assistance (for trunk, use of chi UE support) Standing Balance: (NT) Functional Mobility Functional Mobility Comments: NT ADL UE Dressing: Maximum assistance (anticipated levels of ADLs per functional observation) LE Dressing: Maximum assistance (anticipated levels of ADLs per functional observation) Tone RUE RUE Tone: Normotonic Tone LUE LUE Tone: Normotonic Coordination Movements Are Fluid And Coordinated: Yes Bed mobility Comment: sitting upright in bed to long sit w/ chi bedrails and min assist. fatigues quickly, min SOBOE and asks to return to supine. Transfers Sit to stand: Unable to assess Stand to sit: Unable to assess Transfer Comments: N/T due to limited activity tolerance and decreased sitting balance Perception Overall Perceptual Status: WFL Sensation Overall Sensation Status: Impaired Additional Comments: per chart review, LLE phantom limb pain LUE AROM (degrees) LUE AROM : WFL RUE AROM (degrees) RUE AROM : WFL LUE Strength Gross LUE Strength: Exceptions to WFL L Shoulder Flex: 4-/5 L Hand General: 4-/5 RUE Strength Gross RUE Strength: Exceptions to WFL R Shoulder Flex: 4-/5 R Hand General: 4-/5 Plan Times per Week: 5 # of visits: 4 Current Treatment Recommendations: Strengthening, Balance Training, Functional Mobility Training, Endurance Training, Safety Education & Training, Patient/Caregiver Education & Training, Equipment Evaluation, Education, & procurement, Self-Care / ADL, Home Management Training, Pain Management, Positioning Patient's Occupational Therapy Plan [facility]. Goals and/or treatment plan was established in collaboration with patient/family/other representatives. Safety Safety Devices in place: Yes Type of devices: Call light within reach, Left in bed AM-PAC Score AM-PAC Inpatient Daily Activity Raw Score: 14 ADL Inpatient CMS G-Code Modifier: CK Goals Encounter Problems Encounter Problems (Active) Dressing Upper Extremities Patient will complete upper body dressing w/ SBA. Start: 11/01/22 Expected End: 11/29/22 Dressings Lower Extremities Patient will dress lower body w/ min assist. Start: 11/01/22 Expected End: 11/29/22 OT Misc Pt will complete 10 minutes of functional sitting tasks to improve overall sitting balance and activity tolerance. Start: 11/01/22 Expected End: 11/29/22 Transfers Patient will complete functional transfer with sliding board with min assist Start: 11/01/22 Expected End: 11/29/22 Education Education Given To: Patient Education Provided: OT Role, Plan of Care Barriers to Learning: None Education Outcome: Verbalized understanding Therapy Time Individual Co-treatment Time In 1349 Time Out 1402 Minutes 13 Haylee Torres OTR/L * Vinh Collins DO - 11/01/2022 1:17 PM EST Images from the original note were not included. Hospitalist Progress Note 11/01/2022 Subjective: Admit Date: 10/30/2022 PCP: Oj Maddox Room#: [id number]/[id number] A Interval History: No overnight issues. Family at bedside. All questions answered. Patient states that she is willing to go to post acute facility at discharge. Adult diet Regular 24HR INTAKE/OUTPUT: Intake/Output Summary (Last 24 hours) at 11/01/2022 1317 Last data filed at 11/01/2022 1100 Gross per 24 hour Intake 3200 ml Output 1450 ml Net 1750 ml 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 ([facility]) 07/27/2020 Asthma Cellulitis Constipation Depression Fibromyalgia GERD (gastroesophageal reflux disease) Hx of right BKA ([facility]) ([facility]) Hypertension Morbidly obese ([facility]) ([facility]) 02/03/2019 BMI 50.52 On home O2 FAY treated with BiPAP Osteoarthritis Osteomyelitis of right foot ([facility]) SCHEDULED FOR THE SURGERY ON 02/11/2019 Seasonal allergies Shortness of breath URSULA (stress urinary incontinence, female) Vertigo LABS: CBC: Recent Labs 10/30/22 1550 10/31/22 1948 11/01/22 0047 WBC 6.9 -- 15.7* RBC 4.47 -- 3.97 HGB 10.6* 10.3* 9.8* HCT 33.9* 32.4* 31.8* MCV 75.8* -- 80.1 RDW 23.1* -- 23.7* PLT 398 -- 337 BMP: Recent Labs 10/30/22 1550 11/01/22 0047 NA 137 134* K 3.9 4.4 CL 102 105 CO2 28 22 BUN 15 13 CREATININE 0.74 0.73 GLUCOSE 95 266* CALCIUM 9.0 8.1* ANIONGAP 7 8 LIVER PROFILE:No results for input(s): AST, ALT, BILITOT, ALKPHOS, PROT in the last 72 hours. No lab exists for component: LABALBU PT/INR: Recent Labs 10/30/22 1550 PROTIME 10.3 INR 1.0 CARDIAC ENZYMES: No results for input(s): TROPONINI in the last 72 hours. Procalcitonin: No results found for: PROCAL COVID-19 PCR: No results for input(s): COVID19 in the last 72 hours. Objective: Vitals: BP 112/78 (BP Location: Left arm, Patient Position: Lying) Pulse (!) 116 Temp 36.2 C (97.1 F) (Temporal) Resp 20 Ht 5' 6 (1.676 m) Wt (!) 350 lb (159 kg) SpO2 96% BMI 56.49 kg/m Pulse Ox: SpO2 Av.3 % Min: 91 % Max: 100 % Supplemental O2: O2 Flow Rate (L/min): 2 L/min General appearance: No apparent distress, appears stated age and cooperative with exam HEENT: Normal cephalic, atraumatic without obvious deformity. Pupils equal, round, and reactive to light. Extra ocular muscles intact. Conjunctivae/corneas clear. Neck: Supple, with full range of motion. No jugular venous distention. Trachea midline. No lymphadenopathy. Respiratory: Normal respiratory effort. Clear to auscultation, bilaterally without Rales/Wheezes/Rhonchi. Cardiovascular: Regular rate and rhythm with normal S1/S2 without murmurs, rubs or gallops. Abdomen: Soft, non-tender, non-distended with normal bowel sounds. No rebound or guarding. Musculoskeletal: RIGHT BKA; LEFT AKA wound vac in place Skin: Skin color, texture, turgor normal. No rashes or lesions. Neurologic: Neurovascularly intact without any focal sensory/motor deficits. Cranial nerves: II-XIIintact, grossly non-focal. Medications: Current Facility-Administered Medications: acetaminophen (Tylenol) tablet 650 mg, 650 mg, Oral, Q4H, Siobhan Esquivel APRN - [employer], 650 mg at 11/01/22 0540 albuterol (2.5 MG/3ML) 0.083% nebulizer solution 2.5 mg, 2.5 mg, Nebulization, PRN, Maged Wilder MD amitriptyline (Elavil) tablet 100 mg, 100 mg, Oral, Nightly, Maged Wilder MD, 100 mg at 10/31/22 2301 ceFAZolin in sodium chloride 0.9% (Ancef) IVPB 3,000 mg, 3,000 mg, IntraVENous, q8h, Maged Wilder MD, Stopped at 11/01/22 1058 citalopram (CeleXA) tablet 40 mg, 40 mg, Oral, Daily, Maged Wilder MD, 40 mg at 11/01/22 0844 gabapentin (Neurontin) capsule 300 mg, 300 mg, Oral, Nightly, MITCH Butcher CNP HYDROmorphone (Dilaudid) injection 0.25 mg, 0.25 mg, IntraVENous, q4h PRN OR HYDROmorphone (Dilaudid) injection 0.5 mg, 0.5 mg, IntraVENous, q4h PRN, MITCH Butcher CNP, 0.5 mg at Lidocaine 4 % patch 1 patch, 1 patch, Topical, Daily, MITCH Butcher CNP, 1 patch at 11/01/22843 LORazepam (Ativan) tablet 0.5 mg, 0.5 mg, Oral, q6h PRN, Maged Wilder MD, 0.5 mg at methocarbamol (Robaxin) tablet 1,000 mg, 1,000 mg, Oral, q8h PRN, MITCH Butcher CNP, 1,000 mg at 11/01/22 0844 mometasone-formoterol (Dulera 100) 100-5 MCG/ACT inhaler 2 puff, 2 puff, Inhalation, BID, Maged Wilder MD, 2 puff at 11/01/22 1029 naloxone (Narcan) 0.4 mg in 0.9% sodium chloride 10 mL syringe, , IntraVENous, PRN, MITCH Butcher CNP oxyCODONE (Roxicodone) immediate release tablet 5 mg, 5 mg, Oral, q4h PRN OR oxyCODONE (Roxicodone) immediate release tablet 10 mg, 10 mg, Oral, q4h PRN, MITCH Butcher CNP, 10 mg at 11/01/22 1217 sodium chloride 0.9 % infusion, 50 mL/hr, IntraVENous, Continuous, Maged Wilder MD, Stopped at 10/31/221927 Assessment LLE cellulitis and Left tibia surgical site infection in the setting of previous hardware placed left knee s/p LEFT AKA on 10/31 H/o PE on chronic OAC with eliquis Anxiety/depression Fibromyalgia GERD Morbid obesity FAY/OHS Hypertension Plan -ortho following -restart OAC -am labs, replace lytes prn -increase activity/PT/OT>>IP rehab recommended -DVT prophylaxis: [] Lovenox [] Heparin [] SCDs [x] Encourage ambulation [x] Already on Anticoagulation(Eliquis) Advance Directive: No Order Anticipated Discharge - Date - 11/02/22? - Location - post acute facility - Pending the following - insurance auth Vinh Collins DO Division of Hospitalist Medicine [place] [place] Mary Cortes DTR - 11/01/2022 12:31 PM EST Nutrition rescreen completed. Patient referred to the Dietitian. Wound healing complications. * Gianna German - 11/01/2022 9:05 AM EST Physical Therapy Facility/Department: Physical Therapy Initial Evaluation NAME: Siobhan Haas : 1960 Date of Service: 11/01/2022 Discharge Recommendations: Facility based therapy PT Equipment Recommendations Other: TBD Assessment Assessment: Pt presents with impairments in strength, balance, and endurance resulting in decreasedfunctional mobility. Pt has prosthetic for R BKA in room which she was utilizing prior and has already contacted her prosthetic jazmín to begin the process of fitting for her L AKA. Pt was understanding of need for stretching/positioning of LLE. Pt is highly motivated and willing to put in the work.Pt requires assist for all bed mobility and transfers. Recommend discharge to facility based therapy. Performance Deficits/Impairments: Decreased functional mobility , Decreased ADL status, Decreased ROM, Decreased tolerance to work activity, Decreased strength, Decreased endurance, Decreased balance Decision Making: Medium Complexity Requires PT Follow-Up: Yes Activity Tolerance Activity Tolerance: Patient limited by fatigue, Patient limited by pain, Patient limited by endurance Patient Diagnosis(es): The primary encounter diagnosis was Superficial incisional surgical site infection. Diagnoses of Abrasion of lower leg with infection, initial encounter and Cellulitis of left lower limb were also pertinent to this visit. 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 ([facility]) (07/27/2020), Asthma, Cellulitis, Constipation, Depression, Fibromyalgia, GERD (gastroesophageal reflux disease), right BKA([facility]) ([facility]), Hypertension, Morbidly obese ([facility]) ([facility]) (02/03/2019), On home O2, FAY treatedwith BiPAP, Osteoarthritis, Osteomyelitis of right foot ([facility]), Seasonal allergies, Shortness of breath, URSULA (stress urinary incontinence, female), and Vertigo. She has no past medical history of Difficult intubation, PONV (postoperative nausea and vomiting), or Prolonged emergence from general anesthesia. has a past surgical history that includes Lipoma resection (Right, 2014); Other surgical history (Left, 11/19/2021); Breast surgery (2006); Other surgical history (09/21/2016); Other surgical history(Right, 03/07/2019); Other surgical history (10/27/2021); Colonoscopy; Wound debridement (Left, 10/28/2021); Joint replacement; Belt abdominoplasty; Foot surgery (Right, 02/11/2019); Other surgical history (07/27/2020); Colonoscopy; Leg Surgery (Left, 01/24/2022); Total knee arthroplasty (Left, 2012); Abscess drainage (Right, 08/07/2020); Ankle surgery (Left, 12/19/2021); Foot surgery (Right, 2018); Foot surgery (Right, 04/08/2019); Other surgical history; [place] tooth extraction; Other surgical history (Right, 04/02/2019); Incontinence surgery (11/15/2015); Other surgical history (Right, 04/22/2019); Other surgical history (Right, 05/06/2019); orthopedic surgery (Right, 04/01/2019); Foot surgery (Right, 04/24/2019); Foot surgery (Left, 08/04/2021); Hysterectomy (1996); and Tonsillectomy. Restrictions Restrictions/Precautions Restrictions/Precautions: General Precautions, Fall Risk, Weight Bearing Required Braces or Orthoses?: No Lower Extremity Weight Bearing Restrictions Right Lower Extremity Weight Bearing: Weight Bearing As Tolerated Left Lower Extremity Weight Bearing: Non Weight Bearing Position Activity Restriction Other position/activity restrictions: PIV, 2L NC, wound vac Vision/Hearing Vision: Within Functional Limits Hearing: Functional/adequate for paticipation in therapy Cognition/Orientation Overall Cognitive Status: WFL Subjective General Chart Reviewed: Yes Patient Assessed for Rehabilitation Services: Yes Additional Pertinent Hx: Vernell ONEILL 2019 (has prosthetic) Family / Caregiver Present: No Diagnosis: abrasion of lower leg with infection s/p Krystyna GILBERT Follows Commands: Within Functional Limits Subjective Subjective: Pt seen lying supine upon entry into pt room. Pt agreeable to participation in PT session. Pain Assessment Pain Assessment: 0-10 (pt did not quantify) Pain Type: Surgical pain Pain Location: Leg Pain Orientation: Left Social/Functional History Social/Functional History Lives With: Family Type of Home: Apartment Home Layout: One level Home Access: Level entry Home Equipment: Rolling walker, Slideboard, Wheelchair-electric Receives Help From: Family ADL Assistance: Independent Homemaking Assistance: Independent Ambulation Assistance: Independent Transfer Assistance: Independent Objective Observation/Palpation Observation: Vernell COLE Gross Assessment Gross Assessment: Yes AROM: Generally decreased, functional Coordination: Within functional limits Tone: Normal Sensation: Impaired Gross Assessment: Yes AROM: Generally decreased, functional Coordination: Within functional limits Tone: Normal Sensation: Impaired Sensation Overall Sensation Status: Impaired Additional Comments: Pt experiencing phantom limb pain in LLE but is understanding of situation as she had experienced it prior in 2019 with Vernell ONEILL. Bed mobility Rolling to Right: Maximum assistance Supine to Sit: Moderate assistance, 2 Person assistance Sit to Supine: Moderate assistance Comment: Pt rolled to R requiring MAX A to complete and maintain position. Pt utilized bed rails toroll. Pt transitioned from lying supine to sitting EOB requiring MOD A x2 for trunk control and BLEmanagement. Pt was engaged in transfer utilizing bed rail for support. Pt transitioned from sittingEOB to lying supine required MOD A for BLE management. Pt was able to control trunk utilizing bed rail. Ambulation Ambulation: No Balance Posture: Fair Sitting - Static: Fair, + Sitting - Dynamic: Fair Comments: Pt maintained seated balance for ~15 minutes utilizing UE support and CGA for safety. Plan Times per Week: 3-5x/wk Plan Weeks: 4 Current Treatment Recommendations: Strengthening, ROM, Balance Training, Functional Mobility Training, Transfer Training, Endurance Training, Gait Training, Home Exercise Program, Positioning Safety Safety Devices Safety Devices in Place: Yes Type of Devices: Call light within reach, Left in bed, Nurse notified Restraints Restraints Initially in Place: No Outcomes Score AM-PAC Score AM-PAC Inpatient Mobility Raw Score: 6 Mobility Inpatient CMS G-Code Modifier: CN Goals Encounter Problems Encounter Problems (Active) Balance Patient will maintain dynamic sitting balance for 5 minutes with modified independence in order to demonstrate improved postural control and prepare for out of bed mobility. Start: 11/01/22 Expected End: 11/29/22 Pain - Adult Transfers Patient will perform bed mobility with modified independence in order to improve independence and prepare for out of bed mobility. Start: 11/01/22 Expected End: 11/29/22 Patient will complete functional transfer with sliding board with modified independence in order toprepare for ambulation. Start: 11/01/22 Expected End: 11/29/22 Education Education Given To: Patient Education Provided: Goals, PT Role, Plan of Care Education Provided Comments: Pt educated on positioning/stretching and desensitization techniques for L AKA. Education Method: Verbal Barriers to Learning: None Education Outcome: Verbalized understanding, Continued education needed Patient s Physical Therapy Plan of Care supervision is transferred to [facility] Rehab Department Physical Therapist. PT wore mask and gloves throughout entire session with patient. Therapy Time Individual Co-treatment Time In 0801 Time Out 0840 Minutes 39 Timed Code Treatment Minutes: 8 Minutes (FA) BRIAN Evans * Samson June MD - 11/01/2022 6:56 AM EST Department of Orthopedic Surgery Progress Note SUBJECTIVE: NAEO. Pain well controlled. Very thankful. OBJECTIVE: General: A&O x3 VITALS: BP (!) 129/98 Pulse (!) 113 Temp 37.1 C (98.7 F) (Temporal) Resp 16 Ht 1.676 m (5' 6) Wt (!) 159 kg (350 lb) SpO2 95% BMI 56.49 kg/m MSK exam: LLE: Prevena c/d/I, holding suction BCR to AKA stump Labs: Lab Results Component Value Date HGB 9.8 (L) 11/01/2022 ASSESSMENT AND PLAN: This is a 62 y.o. female with L SSI s/p AKA on 10/31 Post-operative plan: Additional Surgical Intervention: No further plans for operative intervention at this time Weight Bearing Instructions: Siobhan will be nonweight bearing on the left lower extremity. DVT Prophylaxis: Can start/restart chemoprophylaxis from my standpoint Antibiotics: Continue Ancef 2g IV Q8 hours for 24 hours then discontinue Consults: No consults needed at this time Elevation: Elevation of the operative extremity is not needed but can be performed if patient is uncomfortable Dressings: Continue VAC dressing until first office follow-up Follow-up: follow-up as an outpatient in 2 weeks please call [phone] to make an appointment * Vinh Collins DO - 10/31/2022 9:11 AM EST Images from the original note were not included. Hospitalist Progress Note 10/31/2022 Subjective: Admit Date: 10/30/2022 PCP: Oj Maddox Room#: [id number]/[id number] A Interval History: No overnight issues. Plans for OR later today. Patient currently expresses some anxiety about the procedure. 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 ([facility]) 07/27/2020 Asthma Cellulitis Constipation Depression Fibromyalgia GERD (gastroesophageal reflux disease) Hx of right BKA ([facility]) ([facility]) Hypertension Morbidly obese ([facility]) ([facility]) 02/03/2019 BMI 50.52 On home O2 FAY treated with BiPAP Osteoarthritis Osteomyelitis of right foot ([facility]) SCHEDULED FOR THE SURGERY ON 02/11/2019 Seasonal allergies Shortness of breath URSULA (stress urinary incontinence, female) Vertigo LABS: CBC: Recent Labs 10/30/22 1550 WBC 6.9 RBC 4.47 HGB 10.6* HCT 33.9* MCV 75.8* RDW 23.1* PLT 398 BMP: Recent Labs 10/30/22 1550 NA 137 K 3.9 CL 102 CO2 28 BUN 15 CREATININE 0.74 GLUCOSE 95 CALCIUM 9.0 ANIONGAP 7 LIVER PROFILE:No results for input(s): AST, ALT, BILITOT, ALKPHOS, PROT in the last 72 hours. No lab exists for component: LABALBU PT/INR: Recent Labs 10/30/22 1550 PROTIME 10.3 INR 1.0 CARDIAC ENZYMES: No results for input(s): TROPONINI in the last 72 hours. Procalcitonin: No results found for: PROCAL COVID-19 PCR: No results for input(s): COVID19 in the last 72 hours. Objective: Vitals: BP 135/80 (BP Location: Left arm, Patient Position: Lying) Pulse 80 Temp 35.8 C (96.4 F) (Temporal) Resp 16 Ht 5' 6 (1.676 m) Wt (!) 350 lb (159 kg) SpO2 96% BMI 56.49 kg/m Pulse Ox: SpO2 Av.3 % Min: 95 % Max: 99 % Supplemental O2: General appearance: No apparent distress, appears stated age and cooperative with exam HEENT: Normal cephalic, atraumatic without obvious deformity. Pupils equal, round, and reactive to light. Extra ocular muscles intact. Conjunctivae/corneas clear. Neck: Supple, with full range of motion. No jugular venous distention. Trachea midline. No lymphadenopathy. Respiratory: Normal respiratory effort. Clear to auscultation, bilaterally without Rales/Wheezes/Rhonchi. Cardiovascular: Regular rate and rhythm with normal S1/S2 without murmurs, rubs or gallops. Abdomen: Soft, non-tender, non-distended with normal bowel sounds. No rebound or guarding. Musculoskeletal: RIGHT BKA; left LE erythema and warmth Skin: Skin color, texture, turgor normal. No rashes or lesions. Neurologic: Neurovascularly intact without any focal sensory/motor deficits. Cranial nerves: II-XIIintact, grossly non-focal. Medications: Current Facility-Administered Medications: acetaminophen (Tylenol) tablet 650 mg, 650 mg, Oral, q6h PRN, Molly Tovar MD, 650 mgat 10/31/22 0307 sodium chloride 0.9 % infusion, 50 mL/hr, IntraVENous, Continuous, Farrukh Tim MD, Stopped at 10/30/222009 Assessment LLE cellulitis and erythema Left tibia surgical site infection in the setting of previous hardware placed left knee H/o PE on chronic OAC with eliquis Anxiety/depression Fibromyalgia GERD Morbid obesity FAY/OHS Hypertension Plan -ortho and vascular surgery following, OR planned for later today, continue to hold OAC -prn Ativan for now -am labs, replace lytes prn -increase activity -DVT prophylaxis: [] Lovenox [] Heparin [] SCDs [x] Encourage ambulation [] Already on Anticoagulation Advance Directive: No Order Anticipated Discharge - Date - TBD - Location - Home with Home Health Care vs rehab? - Pending the following - clinical course Vinh Collins DO [facility] [place] * Yousuf Gardner MD - 10/31/2022 7:02 AM EST Department of Orthopedic Surgery Progress Note SUBJECTIVE: No acute events overnight. Resting comfortably in chair. Visitor at bedside. Pain controlled. No new paresthesias. No CP/SOB. No fevers or chills. States that she came into ED due to increased redness, swelling of LLE. Anxious for OR today. Consent in chart at bedside. Remains NPO. OBJECTIVE: General: alert and oriented to person, place and time, well-developed and well- nourished, in no acute distress VITALS: BP 130/68 (BP Location: Left arm, Patient Position: Lying) Pulse 78 Temp 36.7 C (98 F) (Temporal) Resp 16 Ht 1.676 m (5' 6) Wt (!) 159 kg (350 lb) SpO2 95% BMI 56.49 kg/m MSK exam: LLE: Chronic lymphedema to LLE. Dry skin. Erythema below previously demarcated line, just below proximaltibia. Previous incision to anteromedial mid to distal tibia w/ dry serosanguineous drainage. No palpable fluctuance but pitting edema throughout the lower extremity. SILT Sa/Gonzalez/DP/SP/T. DF/PF/EHL +.Brisk capillary refill to all toes. DP palpable. Lab Results Component Value Date WBC 6.9 10/30/2022 HGB 10.6 (L) 10/30/2022 HCT 33.9 (L) 10/30/2022 PLT 398 10/30/2022 AST 31 02/01/2022 NA 137 10/30/2022 K 3.9 10/30/2022 CL 102 10/30/2022 CREATININE 0.74 10/30/2022 BUN 15 10/30/2022 CO2 28 10/30/2022 INR 1.0 10/30/2022 Results from last 7 days Lab Units 10/30/22 1550 CRP mg/L 11.6* Results from last 7 days Lab Units 10/30/22 1550 SED RATE mm/hr 74* Lab Results Component Value Date RH POS 10/30/2022 Medications: Intake and Output Summary (Last 24 hours) at Date Time No intake or output data in the 24 hours ending 10/31/22 0702 ASSESSMENT AND PLAN: This is a 62 y.o. female with LEFT tibia surgical site infection NPO for OR today for LEFT AKA. Consented. Added, cleared for OR. WBAT BLE Elevate LLE Will hold abx until OR, patient stable. DVT Ppx: Hold for OR Cultures: will obtain in OR Neurovascular and skin checks Medical and pain management per medicine physician Please page [phone] with any questions or concerns Ortho to follow Yousuf Gardner MD PGY-5, Orthopaedic Surgery [phone] 10/31/2022 documented in this [facility]02-02-2023 Note* Care Coordination - Belia Lo - 11/02/2022 12:42 PM EST Covid information transmitted to [facility] [place] via [employer] per T[facility] request. [id number]* Care Coordination - Belia Lo - 11/02/2022 12:42 PM EST Covid information transmitted to [facility] via Careport per TCC request. [facility] [id number] Miscellaneous Notes* Care Coordination - Belia Lo - 11/02/2022 12:42 PM EST Covid information [facility] TCC request. * Care Coordination - Unknown Case Management - 11/02/2022 12:40 PM EST Patient Choice Patient Name: SIOBHAN HAAS Date of : 1960 All Providers Sent Referral Name: [facility] Phone: [phone] Address: [address] [place] [address] Name: [facility] Phone: [phone] Address: [address] [place] [address] * Care Coordination - CHRISTINE Rachel - 11/02/2022 11:49 AM EST Transport arranged for 1430 today to transfer pt to [facility]. RN, US, TCC, pt and Avenuesnotified. * Care Coordination - Belia Lo - 11/02/2022 10:44 AM EST Discharge med list information [facility] TCC request. Covid pending. 7000 completed in HENS. * Care Coordination - Elin Vang RN - 11/02/2022 8:05 AM EST Care Coordination DCP note: TCC noted SNF authorization rec'd. Secure chat to Dr. Collins, requesting DC order. SW referral, request assistance w/transportation. Pt will need a negative COVID prior to DC today. DC Date: Today * Care Coordination - Ana Miller - 11/01/2022 4:24 PM EST Insurance Authorization: APPROVED Received notification via [employer] that patient is APPROVED admission to [facility]. [employer] Auth ID:[id number] Dates Approved: 11/02/2022-11/06/2022 Next Review Date: 11/06/2022 TCC and facility notified. * Care Coordination - Ana Miller - 11/01/2022 4:14 PM EST Insurance Authorization Received task to initiate [employer] authorization to [facility]. * Care Coordination - Belia Lo - 11/01/2022 2:47 PM EST Referral placed to [facility] [address] Let facilities know: Anticipate pt will be medically ready for DC in 1 day via Careport per TCC request. Await review and response regarding ability to accept. TCC notified. * Care Coordination - Elin Vang RN - 11/01/2022 1:41 PM EST Care Coordination DCP note: TCC met w/pt @bedside to discuss DCP. SNF list provided and medicare star ratings explained. Pt requested referrals to 1. [facility] and 2. [facility] Message sent to [facility] to request referrals to above facilities, anticipate pt to be medically stable for DC in 1 day. TCC will continue to follow for acceptance and initiate authorization with [employer]. * Care Coordination - Elin Vang RN - 11/01/2022 10:28 AM EST Care Managment Initial Assessment Date: 11/01/2022 Patient Name: Siobhan Haas : 1960 Patient Information Source of Information: Patient Cognition/Language: WFL - Within Functional Limits Permission given to speak with patient help desk representative/caregiver as indicated: Confirmation of Payer with patient/family: Yes Payer Name: change to [employer] MEDICARE, EFFECTIVE 11/01/22 [place]: Confirmation of Primary Care Physician: Confirmed PCP Name: DR. MADDOX Seen in last 2 years?: Yes Primary Caregiver: Self If assistance needed, confirmed caregiver ready, willing and able to care for patient at discharge:Yes Confirmed with: PT STATES HER SON AND GRANDCHILDREN ARE AVAILABLE TO ASSIST HER ON DISCHARGE Living Arrangements Current Residence: Apartment Number of Floors 1 Number of Entry Steps: 1 Bed/Bath Levels: Both first floor Facility: Facility Name: Plan to Return: Yes Lives with: Children, Extended family members Support Systems: Children, Family members, Friends/neighbors, Holiness/[place] community Activities of Daily Living Ambulation: Independent Bathing/Dressing: Independent Elimination/Continence/Toileting: Independent Feeding: Independent Who Assists with Activities of Daily Living: Instrumental Activities of Daily Living Prescription Coverage: Yes Pharmacy Used: Medication Management: Independent Transportation/Shopping: Assistance Provider Transportation/Shopping Assistance Provider Name: SON AND DAUGHTER IN LAW Transportation Mode: Car Needs Assistance with Transportation at Discharge: Yes Meal Preparation: Assistance Provider Meal Prep Assistance Provider Name: SON AND DAUGHTER IN LAW Laundry/Cleaning: Assistance Provider Laundry/Cleaning Assistance Provider Name: SON AND DAUGHTER IN LAW Finances/Bill Paying: Independent Communication: Independent Types of Care Services/Equipment Utilized Care Services: Dialysis Type: NA Durable Medical Equipment: Wheelchair (standard or power), Other (Comment) (TRANSFER SLIDER FOR BED) Patient's Goal/Discharge Plan Patient expects to be discharged to: HOME Discharge Planning Actions: Continue to follow Patient's Choice Rights and [employer] and Collaborative Relationships Disclosed as Indicated for Post-Acute Care: Interdisciplinary Team Engagement: PT/OT, Disease Management Program, Home Health Care Social Work Referral for: Transportation Assistance Additional Information: 62 yo pt admitted to [facility] s/p S AKA on 10/31, now POD #1. Pt with prior history of R BKA. NWB LLE. Initial PT eval rec FBT, OT eval pending. TCC met w/pt @bedside, introduced self and role. Pt has health insurance, which switched from [employer] eff today. New insurance card copied- left VMM with [facility] financial office with update ongaw insurance and requested CB w/contact info provided. Pt lives w/her son and his family and reports that her DCP is home w/HH and states she is not interested in SNF/IPR at this time. Pt has a wheelchair at home and is moving into a handicap/wheelchair accessible apt with her son's family. They are also pursuing a handicap van but current car has wheelchair lift thru back of car? Pt is requesting transportation assistance at discharge. [facility] is following, however at this time pt is not interested. TCC will continue to follow for DCP assistance. Elin Vang RN * Op Note - Rusty Bassett MD - 10/31/2022 5:05 PM EST Pre-operative Diagnosis: Left leg infection Post-operative Diagnosis: Same Procedure: Left above-knee amputation Components used: Not Applicable Anesthesia: General Surgeon: Jess Assistants: Adolfo Wilder Estimated Blood Loss: 600ml Complications: None Specimens: Left leg Medications: Ancef 3 g IV Operative findings: At the level of the above-knee amputation no signs of active infection were found. The tissues at the level of amputation were well perfused and viable. History of present illness: Siobhan is a 62 y.o. female who was [facility]. A recommendation for a left above knee amputation was made based on the severity of the problem and the patients medical condition. Despite the risks of surgery which had been discussed indetail Siobhan wished to proceed. Operative report: I met with Siobhan in the preoperative area prior to the procedure and discussed the surgical plan once again and answered all of her questions related to the procedure and the expected post-operative course. The risks of surgery were discussed including but not limited to the risks of medications given for surgery, the risk of blood loss during and after surgery that can lead to the need for blood products in certain situations, infection, damage to normal structures that can lead to long termproblems of pain or dysfunction, wound healing complications, the possibility of nonunion, malunionand late or chronic pain were also discussed. In addition potentially life threatening complications at the time of surgery and after surgery were discussed including but not limited to deep vein thrombosis, pulmonary embolism, myocardial infarction, stroke and . I initialed her left lower extremity and signed her consent form. Siobhan was then brought to the operating room and placed in the supine position on the Operating Room table. Care was taken to identify and pad all bony prominences. A general anesthetic was then given by the anesthesia staff and an endotracheal tube was placed by the anesthesia staff. At all times during the operative procedure her head neck and airway were protected by the anesthesia staff. The left lower extremity was then prepped and draped in the usual orthopedic sterile fashion. A surgical timeout was then performed with the patient's identification, the procedure to be performed being reviewed, verification that the patient had received preoperative antibiotics, and verification of the correct surgical side. Everyone in the operating room stopped what they were doing in order to participate in the timeout. This timeout was performed by myself, the circulating room nurseand the anesthesia staff. The patient's ASA was verified by the nurse sanding supervisor and the anesthesiastaff. Fire risk was assessed. A fishmouth type incision was made starting over the anterior distal portion of the thigh just above the suprapatellar pouch. This incision was then curved gently and a proximal medial and proximal lateral direction. At the mid portion of the thigh both medially and laterally the incision was turned and a distal posterior direction meeting over the posterior center of the thigh. The skin and subcutaneous tissues were divided with care taken to cauterize any crossing vessels. Anteriorly the wound was deepened down to the level quadriceps tendon. The quadriceps tendon was then divided as were portions of the vastus medialis and vastus lateralis. The femur was circumferentially exposed at the intended level of amputation. Working in a posterior medial direction the deep femoral artery and vein were identified. Utilizing #1 Surgilon sutures, stick ties were applied to the artery and vein. Both the artery and vein were then cut. No active bleeding was present after tying off the vessels and cutting them. Posterior dissection was then carried out dividing the hamstrings medially and laterally. The sciatic nerve was identified pulled distally, proximally allowed to retract. Once the softtissues had been completely divided the femur was cut using an oscillating saw. The wound was then thoroughly irrigated with copious amounts of sterile saline. Any active bleeding was controlled using Bovie cautery or suture ligation. Once all bleeding had been controlled the wound was again thoroughly irrigated with copious amounts of sterile saline. The quadriceps and the posterior musculature were reapproximated to each other utilizing 0 Vicryl in an interrupted [id number] fashion fullycovering the femur. The subcutaneous tissues were then closed using 2-0 Vicryl in an interrupted buried fashion. The skin was closed utilizing 3-0 nylon suture. Dry sterile dressings were applied. Siobhan was then awakened from her anesthetic, transferred to her hospital bed and taken to the recovery room in stable medical condition. Post-operative plan: Additional Surgical Intervention: No further plans for operative intervention at this time Weight Bearing Instructions: Siobhan will be nonweight bearing on the left lower extremity. DVT Prophylaxis: Can start/restart chemoprophylaxis from my standpoint Antibiotics: Continue Ancef 2g IV Q8 hours for 24 hours then discontinue Consults: No consults needed at this time Elevation: Elevation of the operative extremity is not needed but can be performed if patient is uncomfortable Dressings: Continue VAC dressing until first office follow-up Follow-up: follow-up as an outpatient in 2 weeks please call [phone] to make an appointment Any questions please page Ortho pager (resident school transportation director) or call my office at [phone] * Care Coordination - Robi Trevino RN - 10/31/2022 2:57 PM EST To OR with family present. documented in this [facility]02-02-2023 Note* Care Coordination - Unknown Case Management - 11/02/2022 12:40 PM EST Patient Choice Patient Name: SIOBHAN HAAS Date of : 1960 All Providers Sent Referral Name: [facility] Phone: [phone] Address: [address] [place] [address] Name: [facility] Phone: [phone] Address: [address] [place] [address] [id number] Note* Care Coordination - Unknown Case Management - 11/02/2022 12:40 PM EST Patient Choice Patient Name: SIOBHAN HAAS Date of : 1960 All Providers Sent Referral Name: [facility] Phone: [phone] Address: [address] [place] [address] Name: [facility] Phone: [phone] Address: [address] [place] [address] [facility] [id number] Note* Care Coordination - CHRISTINE Rachel - 11/02/2022 11:49 AM EST Transport arranged for 1430 today to transfer pt to [facility]. RN, US, TCC, pt and Avenuesnotified. [place] [id number] Note* Care Coordination - CHRISTINE Rachel - 11/02/2022 11:49 AM EST Transport arranged for 1430 today to transfer pt to [facility]. RN, US, TCC, pt and Avenuesnotified. [place] [id number] Note* Care Coordination - Belia Lo - 11/02/2022 10:44 AM EST Discharge med list information [facility] to [facility] per TCC request. Covid pending. 7000 completed in [place]. [facility] [id number] Note* Care Coordination - Belia Lo - 11/02/2022 10:44 AM EST Discharge med list information transmitted to [facility] per TCC request. Covid pending. 7000 completed in [place]. [place] [id number] Hospital course Narrative* Vinh Collins DO - 11/02/2022 10:10 AM EST Images from the original note were not included. 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 ([facility]) 07/27/2020 Asthma Cellulitis Constipation Depression Fibromyalgia GERD (gastroesophageal reflux disease) Hx of right BKA ([facility]) ([facility]) Hypertension Morbidly obese ([facility]) ([facility]) 02/03/2019 BMI 50.52 On home O2 FAY treated with BiPAP Osteoarthritis Osteomyelitis of right foot ([facility]) SCHEDULED FOR THE SURGERY ON 02/11/2019 Seasonal allergies Shortness of breath URSULA (stress urinary incontinence, female) Vertigo Procedures: LEFT AKA on 10/31 Hospital Course: Pt presented with worsening swelling LLE and pain. She has a h/o necrotizing fasciitis and has right BKA. Ptn was sent from ortho office and plan for surgery for possible left AKA. Patient has been on PO Abx with keflex. Swelling for worse along with pain and erythema. Admitted andseen by ortho. Taken to OR and had successful AKA. See discharge diagnoses list above and medication adjustments below in med rec.The patient is discharged in improved and stable condition. Consults: Ortho surgery Vascular surgery Discharge Instructions: Diet: Dietary Orders (From admission, onward) Start Ordered 10/31/222224 Adult diet Regular Diet effective now Question: Diet type Answer: Regular 10/31/222223 Activity: as tolerated Recommended Outpatient Tests: Disposition: Patient discharged in stable condition to Acute Rehab. Greater than 30 minutes spent discharging the patient and coming up with patient discharge plan. Vitals: BP 134/86 (BP Location: Left arm, Patient Position: Sitting) Pulse 101 Temp 36.3 C (97.4 F) (Temporal) Resp 16 Ht 5' 5.98 (1.676 m) Wt (!) 350 lb (159 kg) SpO2 94% BMI 56.52 kg/m Pulse Ox: SpO2 Av.2 % Min: 92 % Max: 98 % Supplemental O2: O2 Flow Rate (L/min): 2 L/min General appearance: No apparent distress, appears stated age and cooperative with exam HEENT: Normal cephalic, atraumatic without obvious deformity. Pupils equal, round, and reactive to light. Extra ocular muscles intact. Conjunctivae/corneas clear. Neck: Supple, with full range of motion. No jugular venous distention. Trachea midline. No lymphadenopathy. Respiratory: Normal respiratory effort. Clear to auscultation, bilaterally without Rales/Wheezes/Rhonchi. Cardiovascular: Regular rate and rhythm with normal S1/S2 without murmurs, rubs or gallops. Abdomen: Soft, non-tender, non-distended with normal bowel sounds. No rebound or guarding. Musculoskeletal: RIGHT BKA; LEFT AKA stump Skin: Skin color, texture, turgor normal. No rashes or lesions. Neurologic: Neurovascularly intact without any focal sensory/motor deficits. Cranial nerves: II-XIIintact, grossly non-focal. Discharge Medications: Medication List START taking these medications acetaminophen 325 MG tablet Commonly known as: Tylenol Take 2 tablets (650 mg) by mouth every 4 hours for 10 days. gabapentin 300 MG capsule Commonly known as: Neurontin Take 1 capsule (300 mg) by mouth Nightly. Lidocaine 4 % patch Apply 1 patch topically daily. Do not start before November 03, 2022. Start taking on: November 03, 2022 oxyCODONE 5 MG immediate release tablet Commonly known as: Roxicodone Take 1 tablet (5 mg) by mouth every 4 hours as needed for moderate pain (4-6) for up to 5 days. CHANGE how you take these medications * albuterol (2.5 MG/3ML) 0.083% nebulizer solution What changed: Another medication with the same name was removed. Continue taking this medication, and follow the directions you see here. * albuterol 108 (90 Base) MCG/ACT inhaler What changed: Another medication with the same name was removed. Continue taking this medication, and follow the directions you see here. * This list has 2 medication(s) that are the same as other medications prescribed for you. Read thedirections carefully, and ask your doctor or other care provider to review them with you. CONTINUE taking these medications amitriptyline 100 MG tablet Commonly known as: Elavil budesonide 0.25 MG/2ML nebulizer solution Commonly known as: Pulmicort budesonide-formoterol 160-4.5 MCG/ACT inhaler Commonly known as: Symbicort cholecalciferol 1.25 MG (44683 UT) capsule Commonly known as: Vitamin D-3 citalopram 40 MG tablet Commonly known as: CeleXA cyclobenzaprine 10 MG tablet Commonly known as: Flexeril Eliquis 5 MG tablet Generic drug: apixaban fluticasone 50 MCG/ACT nasal spray Commonly known as: Flonase omeprazole [address] capsule Commonly known as: PriLOSEC tiotropium 18 MCG inhalation capsule Commonly known as: Spiriva STOP taking these medications famotidine 20 MG tablet Commonly known as: Pepcid furosemide 40 MG tablet Commonly known as: Lasix pregabalin 50 MG capsule Commonly known as: Lyrica spironolactone 25 MG tablet Commonly known as: Aldactone valsartan 320 MG tablet Commonly known as: Diovan Where to Get Your Medications You can get these medications from any pharmacy Bring a paper prescription for each of these medications oxyCODONE 5 MG immediate release tablet Information about where to get these medications is not yet available Ask your nurse or doctor about these medications acetaminophen 325 MG tablet gabapentin 300 MG capsule Lidocaine 4 % patch Recommended Follow-up: Rusty Bassett MD [address] [place] [address] [address] [facility] [address] Schedule an appointment as soon as possible for a visit in 2 week(s) post op Oj Maddox [address] [place] [id number] Follow up in 1 week(s) Complexity of Follow up: [] Moderate Complexity: follow up within 7-14 calendar days (01484) [x] Severe Complexity: follow up within 7 calendar days (37453) Follow up Testing, Pending results or Referrals at Transitional Care Visit: [x] yes [] no Instructions to MA: Please call patient on day after discharge (must document patient contacted within 2 business days of discharge). Follow up questions for MA: 1. Did you get medications filled and taking them as instructed from discharge? 2. Are you following your discharge instructions from your hospital stay? 3. Please confirm patient is scheduled for a follow up appointment within the above time frame. Signed: Vinh Collins DO [facility] 11/02/2022, 10:10 AM documented in this [facility] [place] [facility]02-02-2023 Note* Care Coordination - Elin Vang RN - 11/02/2022 8:05 AM EST Care Coordination DCP note: TCC noted SNF authorization rec'd. Secure chat to Dr. Collins, requesting DC order. SW referral, request assistance w/transportation. Pt will need a negative COVID prior to DC today. DC Date: Today [id number] Note* Care Coordination - Elin Vang RN - 11/02/2022 8:05 AM EST Care Coordination DCP note: TCC noted SNF authorization rec'd. Secure chat to Dr. Collins, requesting DC order. SW referral, request assistance w/transportation. Pt will need a negative COVID prior to DC today. DC Date: Today [facility] [id number] Note* Care Coordination - Ana Miller - 11/01/2022 4:24 PM EST Insurance Authorization: APPROVED Received notification via [employer] portal that patient is APPROVED admission to [facility]. [employer] Auth ID:[id number] Dates Approved: 11/02/2022-11/06/2022 Next Review Date: 11/06/2022 TCC and facility notified. [facility] [id number] Note* Care Coordination - Ana Miller - 11/01/2022 4:24 PM EST Insurance Authorization: APPROVED Received notification via [employer] portal that patient is APPROVED admission to [facility]. [employer] Auth ID:[id number] Dates Approved: 11/02/2022-11/06/2022 Next Review Date: 11/06/2022 TCC and facility notified. [facility] [id number] Note* Care Coordination - Ana Miller - 11/01/2022 4:14 PM EST Insurance Authorization Received task to initiate [employer] authorization to [facility]. [facility] [id number] Note* Care Coordination - Ana Miller - 11/01/2022 4:14 PM EST Insurance Authorization Received task to initiate [employer] authorization to [facility]. [facility] [id number] Note* Care Coordination - Belia Lo - 11/01/2022 2:47 PM EST Referral placed to SNF- [facility] Let facilities know: Anticipate pt will be medically ready for DC in 1 day via Careport per TCC request. Await review and response regarding ability to accept. TCC notified. [facility] [id number] Note* Care Coordination - Belia Lo - 11/01/2022 2:47 PM EST Referral placed to SNF- [facility] 2.[facility] Let facilities know: Anticipate pt will be medically ready for DC in 1 day via Careport per TCC request. Await review and response regarding ability to accept. TCC notified. [facility] [id number] Note* Care Coordination - Elin Vang RN - 11/01/2022 1:41 PM EST Care Coordination DCP note: TCC met w/pt @bedside to discuss DCP. SNF list provided and medicare star ratings explained. Pt requested referrals to [facility]. [facility] and 2. [facility] [place] Message sent to [facility] to request referrals to above facilities, anticipate pt to be medically stable for DC in 1 day. TCC will continue to follow for acceptance and initiate authorization with [employer] Insurance. [facility] [id number] Note* Care Coordination - Elin Vang RN - 11/01/2022 1:41 PM EST Care Coordination DCP note: TCC met w/pt @bedside to discuss DCP. SNF list provided and medicare star ratings explained. Pt requested referrals to [facility]. [facility] and [facility]. [facility] Message sent to [facility] to request referrals to above facilities, anticipate pt to be medically stable for DC in 1 day. TCC will continue to follow for acceptance and initiate authorization with [employer]. [facility] [id number] Note* Care Coordination - Elin Vang RN - 11/01/2022 10:28 AM EST Care Managment Initial Assessment Date: 11/01/2022 Patient Name: Siobhan Haas : 1960 Patient Information Source of Information: Patient Cognition/Language: WFL - Within Functional Limits Permission given to speak with patient help desk representative/caregiver as indicated: Confirmation of Payer with patient/family: Yes Payer Name: change to [employer] MEDICARE, EFFECTIVE 11/01/22 : Confirmation of Primary Care Physician: Confirmed PCP Name: DR. MADDOX Seen in last 2 years?: Yes Primary Caregiver: Self If assistance needed, confirmed caregiver ready, willing and able to care for patient at discharge:Yes Confirmed with: PT STATES HER SON AND GRANDCHILDREN ARE AVAILABLE TO ASSIST HER ON DISCHARGE Living Arrangements Current Residence: Apartment Number of Floors 1 Number of Entry Steps: 1 Bed/Bath Levels: Both first floor Facility: Facility Name: Plan to Return: Yes Lives with: Children, Extended family members Support Systems: Children, Family members, Friends/neighbors, Holiness/aleksandr community Activities of Daily Living Ambulation: Independent Bathing/Dressing: Independent Elimination/Continence/Toileting: Independent Feeding: Independent Who Assists with Activities of Daily Living: Instrumental Activities of Daily Living Prescription Coverage: Yes Pharmacy Used: Medication Management: Independent Transportation/Shopping: Assistance Provider Transportation/Shopping Assistance Provider Name: SON AND DAUGHTER IN LAW Transportation Mode: Car Needs Assistance with Transportation at Discharge: Yes Meal Preparation: Assistance Provider Meal Prep Assistance Provider Name: SON AND DAUGHTER IN LAW Laundry/Cleaning: Assistance Provider Laundry/Cleaning Assistance Provider Name: SON AND DAUGHTER IN LAW Finances/Bill Paying: Independent Communication: Independent Types of Care Services/Equipment Utilized Care Services: Dialysis Type: NA Durable Medical Equipment: Wheelchair (standard or power), Other (Comment) (TRANSFER SLIDER FOR BED) Patient's Goal/Discharge Plan Patient expects to be discharged to: HOME Discharge Planning Actions: Continue to follow Patient's Choice Rights and [employer] and Collaborative Relationships Disclosed as Indicated for Post-Acute Care: Interdisciplinary Team Engagement: PT/OT, Disease Management Program, Home Health Care Social Work Referral for: Transportation Assistance Additional Information: 62 yo pt admitted to [facility] s/p S AKA on 10/31, now POD #1. Pt with prior history of R BKA. NWB LLE. Initial PT eval rec FBT, OT eval pending. TCC met w/pt @bedside, introduced self and role. Pt has health insurance, which switched from [employer] eff today. New insurance card copied- left VMM with [facility] financial office with update onnew insurance and requested CB w/contact info provided. Pt lives w/her son and his family and reports that her DCP is home w/HH and states she is not interested in SNF/IPR at this time. Pt has a wheelchair at home and is moving into a handicap/wheelchair accessible apt with her son's family. They are also pursuing a handicap van but current car has wheelchair lift thru back of car? Pt is requesting transportation assistance at discharge. [facility] is following, however at this time pt is not interested. TCC will continue to follow for DCP assistance. Elin Vang RN [facility] [id number] Note* Care Coordination - Elin Vang RN - 11/01/2022 10:28 AM EST Care Managment Initial Assessment Date: 11/01/2022 Patient Name: Siobhan Haas : 1960 Patient Information Source of Information: Patient Cognition/Language: WFL - Within Functional Limits Permission given to speak with patient help desk representative/caregiver as indicated: Confirmation of Payer with patient/family: Yes Payer Name: change to [employer] MEDICARE, EFFECTIVE 11/01/22 [place]: Confirmation of Primary Care Physician: Confirmed PCP Name: DR. MADDOX Seen in last 2 years?: Yes Primary Caregiver: Self If assistance needed, confirmed caregiver ready, willing and able to care for patient at discharge:Yes Confirmed with: PT STATES HER SON AND GRANDCHILDREN ARE AVAILABLE TO ASSIST HER ON DISCHARGE Living Arrangements Current Residence: Apartment Number of Floors 1 Number of Entry Steps: 1 Bed/Bath Levels: Both first floor Facility: Facility Name: Plan to Return: Yes Lives with: Children, Extended family members Support Systems: Children, Family members, Friends/neighbors, Holiness/aleksandr community Activities of Daily Living Ambulation: Independent Bathing/Dressing: Independent Elimination/Continence/Toileting: Independent Feeding: Independent Who Assists with Activities of Daily Living: Instrumental Activities of Daily Living Prescription Coverage: Yes Pharmacy Used: Medication Management: Independent Transportation/Shopping: Assistance Provider Transportation/Shopping Assistance Provider Name: SON AND DAUGHTER IN LAW Transportation Mode: Car Needs Assistance with Transportation at Discharge: Yes Meal Preparation: Assistance Provider Meal Prep Assistance Provider Name: SON AND DAUGHTER IN LAW Laundry/Cleaning: Assistance Provider Laundry/Cleaning Assistance Provider Name: SON AND DAUGHTER IN LAW Finances/Bill Paying: Independent Communication: Independent Types of Care Services/Equipment Utilized Care Services: Dialysis Type: NA Durable Medical Equipment: Wheelchair (standard or power), Other (Comment) (TRANSFER SLIDER FOR BED) Patient's Goal/Discharge Plan Patient expects to be discharged to: HOME Discharge Planning Actions: Continue to follow Patient's Choice Rights and [employer] and Collaborative Relationships Disclosed as Indicated for Post-Acute Care: Interdisciplinary Team Engagement: PT/OT, Disease Management Program, Home Health Care Social Work Referral for: Transportation Assistance Additional Information: 62 yo pt admitted to [facility] s/p S AKA on 10/31, now POD #1. Pt with prior history of R BKA. NWB LLE. Initial PT eval rec FBT, OT eval pending. TCC met w/pt @bedside, introduced self and role. Pt has health insurance, which switched from [employer] eff today. New insurance card copied- left VMM with [facility] financial office with update onnew insurance and requested CB w/contact info provided. Pt lives w/her son and his family and reports that her DCP is home w/HH and states she is not interested in SNF/IPR at this time. Pt has a wheelchair at home and is moving into a handicap/wheelchair accessible apt with her son's family. They are also pursuing a handicap van but current car has wheelchair lift thru back of car? Pt is requesting transportation assistance at discharge. [facility] is following, however at this time pt is not interested. TCC will continue to follow for DCP assistance. Elin Vang RN [facility] [id number] Note* Op Note - Rusty Bassett MD - 10/31/2022 5:05 PM EST Pre-operative Diagnosis: Left leg infection Post-operative Diagnosis: Same Procedure: Left above-knee amputation Components used: Not Applicable Anesthesia: General Surgeon: Jess Assistants: Adolfo Wilder Estimated Blood Loss: 600ml Complications: None Specimens: Left leg Medications: Ancef 3 g IV Operative findings: At the level of the above-knee amputation no signs of active infection were found. The tissues at the level of amputation were well perfused and viable. History of present illness: Siobhan is a 62 y.o. female who [facility]. A recommendation for a left above knee amputation was made based on the severity of the problem and the patients medical condition. Despite the risks of surgery which had been discussed indetail Siobhan wished to proceed. Operative report: I met with Siobhan in the preoperative area prior to the procedure and discussed the surgical plan once again and answered all of her questions related to the procedure and the expected post-operative course. The risks of surgery were discussed including but not limited to the risks of medications given for surgery, the risk of blood loss during and after surgery that can lead to the need for blood products in certain situations, infection, damage to normal structures that can lead to long termproblems of pain or dysfunction, wound healing complications, the possibility of nonunion, malunionand late or chronic pain were also discussed. In addition potentially life threatening complications at the time of surgery and after surgery were discussed including but not limited to deep vein thrombosis, pulmonary embolism, myocardial infarction, stroke and . I initialed her left lower extremity and signed her consent form. Siobhan was then brought to the operating room and placed in the supine position on the Operating Room table. Care was taken to identify and pad all bony prominences. A general anesthetic was then given by the anesthesia staff and an endotracheal tube was placed by the anesthesia staff. At all times during the operative procedure her head neck and airway were protected by the anesthesia staff. The left lower extremity was then prepped and draped in the usual orthopedic sterile fashion. A surgical timeout was then performed with the patient's identification, the procedure to be performed being reviewed, verification that the patient had received preoperative antibiotics, and verification of the correct surgical side. Everyone in the operating room stopped what they were doing in order to participate in the timeout. This timeout was performed by myself, the circulating room nurseand the anesthesia staff. The patient's ASA was verified by the nurse sanding supervisor and the anesthesiastaff. Fire risk was assessed. A fishmouth type incision was made starting over the anterior distal portion of the thigh just above the suprapatellar pouch. This incision was then curved gently and a proximal medial and proximal lateral direction. At the mid portion of the thigh both medially and laterally the incision was turned and a distal posterior direction meeting over the posterior center of the thigh. The skin and subcutaneous tissues were divided with care taken to cauterize any crossing vessels. Anteriorly the wound was deepened down to the level quadriceps tendon. The quadriceps tendon was then divided as were portions of the vastus medialis and vastus lateralis. The femur was circumferentially exposed at the intended level of amputation. Working in a posterior medial direction the deep femoral artery and vein were identified. Utilizing #1 Surgilon sutures, stick ties were applied to the artery and vein. Both the artery and vein were then cut. No active bleeding was present after tying off the vessels and cutting them. Posterior dissection was then carried out dividing the hamstrings medially and laterally. The sciatic nerve was identified pulled distally, proximally allowed to retract. Once the softtissues had been completely divided the femur was cut using an oscillating saw. The wound was then thoroughly irrigated with copious amounts of sterile saline. Any active bleeding was controlled using Bovie cautery or suture ligation. Once all bleeding had been controlled the wound was again thoroughly irrigated with copious amounts of sterile saline. The quadriceps and the posterior musculature were reapproximated to each other utilizing 0 Vicryl in an interrupted [id number] fashion fullycovering the femur. The subcutaneous tissues were then closed using 2-0 Vicryl in an interrupted buried fashion. The skin was closed utilizing 3-0 nylon suture. Dry sterile dressings were applied. Siobhan was then awakened from her anesthetic, transferred to her hospital bed and taken to the recovery room in stable medical condition. Post-operative plan: Additional Surgical Intervention: No further plans for operative intervention at this time Weight Bearing Instructions: Siobhan will be nonweight bearing on the left lower extremity. DVT Prophylaxis: Can start/restart chemoprophylaxis from my standpoint Antibiotics: Continue Ancef 2g IV Q8 hours for 24 hours then discontinue Consults: No consults needed at this time Elevation: Elevation of the operative extremity is not needed but can be performed if patient is uncomfortable Dressings: Continue VAC dressing until first office follow-up Follow-up: follow-up as an outpatient in 2 weeks please call [phone] to make an appointment Any questions please page Ortho pager (resident school transportation director) or call my office at [phone] [facility] [id number] Note* Op Note - Rusty Bassett MD - 10/31/2022 5:05 PM EST Pre-operative Diagnosis: Left leg infection Post-operative Diagnosis: Same Procedure: Left above-knee amputation Components used: Not Applicable Anesthesia: General Surgeon: Jess Assistants: Adolfo Wilder Estimated Blood Loss: 600ml Complications: None Specimens: Left leg Medications: Ancef 3 g IV Operative findings: At the level of the above-knee amputation no signs of active infection were found. The tissues at the level of amputation were well perfused and viable. History of present illness: Siobhan is a 62 y.o. female who was admitted to [facility] for[facility] leg infection. A recommendation for a left above knee amputation was made based on the severity of the problem and the patients medical condition. Despite the risks of surgery which had been discussed indetail Siobhan wished to proceed. Operative report: I met with Siobhan in the preoperative area prior to the procedure and discussed the surgical plan once again and answered all of her questions related to the procedure and the expected post-operative course. The risks of surgery were discussed including but not limited to the risks of medications given for surgery, the risk of blood loss during and after surgery that can lead to the need for blood products in certain situations, infection, damage to normal structures that can lead to long termproblems of pain or dysfunction, wound healing complications, the possibility of nonunion, malunionand late or chronic pain were also discussed. In addition potentially life threatening complications at the time of surgery and after surgery were discussed including but not limited to deep vein thrombosis, pulmonary embolism, myocardial infarction, stroke and . I initialed her left lower extremity and signed her consent form. Siobhan was then brought to the operating room and placed in the supine position on the Operating Room table. Care was taken to identify and pad all bony prominences. A general anesthetic was then given by the anesthesia staff and an endotracheal tube was placed by the anesthesia staff. At all times during the operative procedure her head neck and airway were protected by the anesthesia staff. The left lower extremity was then prepped and draped in the usual orthopedic sterile fashion. A surgical timeout was then performed with the patient's identification, the procedure to be performed being reviewed, verification that the patient had received preoperative antibiotics, and verification of the correct surgical side. Everyone in the operating room stopped what they were doing in order to participate in the timeout. This timeout was performed by myself, the circulating room nurseand the anesthesia staff. The patient's ASA was verified by the nurse sanding supervisor and the anesthesiastaff. Fire risk was assessed. A fishmouth type incision was made starting over the anterior distal portion of the thigh just above the suprapatellar pouch. This incision was then curved gently and a proximal medial and proximal lateral direction. At the mid portion of the thigh both medially and laterally the incision was turned and a distal posterior direction meeting over the posterior center of the thigh. The skin and subcutaneous tissues were divided with care taken to cauterize any crossing vessels. Anteriorly the wound was deepened down to the level quadriceps tendon. The quadriceps tendon was then divided as were portions of the vastus medialis and vastus lateralis. The femur was circumferentially exposed at the intended level of amputation. Working in a posterior medial direction the deep femoral artery and vein were identified. Utilizing #1 Surgilon sutures, stick ties were applied to the artery and vein. Both the artery and vein were then cut. No active bleeding was present after tying off the vessels and cutting them. Posterior dissection was then carried out dividing the hamstrings medially and laterally. The sciatic nerve was identified pulled distally, proximally allowed to retract. Once the softtissues had been completely divided the femur was cut using an oscillating saw. The wound was then thoroughly irrigated with copious amounts of sterile saline. Any active bleeding was controlled using Bovie cautery or suture ligation. Once all bleeding had been controlled the wound was again thoroughly irrigated with copious amounts of sterile saline. The quadriceps and the posterior musculature were reapproximated to each other utilizing 0 Vicryl in an interrupted rwfvit-me-bvyki fashion fullycovering the femur. The subcutaneous tissues were then closed using 2-0 Vicryl in an interrupted buried fashion. The skin was closed utilizing 3-0 nylon suture. Dry sterile dressings were applied. Siobhan was then awakened from her anesthetic, transferred to her hospital bed and taken to the recovery room in stable medical condition. Post-operative plan: Additional Surgical Intervention: No further plans for operative intervention at this time Weight Bearing Instructions: Siobhan will be nonweight bearing on the left lower extremity. DVT Prophylaxis: Can start/restart chemoprophylaxis from my standpoint Antibiotics: Continue Ancef 2g IV Q8 hours for 24 hours then discontinue Consults: No consults needed at this time Elevation: Elevation of the operative extremity is not needed but can be performed if patient is uncomfortable Dressings: Continue VAC dressing until first office follow-up Follow-up: follow-up as an outpatient in 2 weeks please call [phone] to make an appointment Any questions please page Ortho pager (resident school transportation director) or call my office at [phone] [facility] [id number] Note* Care Coordination - Robi Trevino RN - 10/31/2022 2:57 PM EST To OR with family present. [facility] [id number] Note* Care Coordination - Robi Trevino RN - 10/31/2022 2:57 PM EST To OR with family present. [facility] [id number] Emergency department Note* Joanna Jose Ramon - 10/31/2022 6:22 AM EST Pt is experiencing some anxiety. Pt would like something to help with her anxiety. Joanna Albright 10/31/22622 [facility] [id number] Emergency department Note* Joanna Jose Ramon - 10/31/2022 6:22 AM EST Pt is experiencing some anxiety. Pt would like something to help with her anxiety. Joanna Albright 10/31/22622 * Chelsea Martinez RN - 10/30/2022 11:44 PM EST Report given to RONAL Marshall for lunch coverage x1 hour. Chelsea Martinez RN 10/30/22 [id number] * Chelsea Martinez RN - 10/30/2022 10:41 PM EST Pt school transportation director light requesting radha crackers, rosemary simin, and medicine for a headache. Dr. Collins messaged via [employer]. Awaiting response at this time. Pt given snacks and gingerale. Chelsea Martinez RN 10/30/22 [id number] * Chelsea Martinez RN - 10/30/2022 9:00 PM EST This RN has given pt a regular hospital bed to increase comfort and maintain skin integrity. Pt's family member at has been given a recliner to sleep in. Call light in hand, side rails x2, pt has no requests at this time. Chelsea Martinez RN 10/30/22 2213 * Chelsea Martinez RN - 10/30/2022 7:30 PM EST Report received from RONAL Hernandez. This RN to assume care of pt at this time. Pt resting in bed with family at BS eating dinner tray. Pt has no requests at this time. Call light in hand, side rails x2. Chelsea Martinez RN 10/30/22 1931 * Mary Lu RN - 10/30/2022 6:34 PM EST Patient received dinner tray Mary Lu RN 10/30/22 1834 * Micaela Rivera - 10/30/2022 4:02 PM EST PT NEEDS ULTRA SOUND FOR LABS AND IV PLACEMENT / COULD NOT OBTAIN LABS / 2 ATTEMPTS ON IV / AAW / STICKERS PLACED WITH PTS PAPERWORK. Micaela Rivera 10/30/22 1603 * Himanshu Schaefer MD - 10/30/2022 1:17 PM EST EMERGENCY DEPARTMENT ENCOUNTER Pt Name: Siobhan Haas Birthdate 1960 Date of evaluation: 10/30/2022 ED Provider: Himanshu Schaefer MD CHIEF COMPLAINT Chief Complaint Patient presents with Leg Swelling L Leg swelling. Amputation of L Leg scheduled for tomorrow per surgeon. HISTORY OF PRESENT ILLNESS (Location/Symptom, Timing/Onset, Context/Setting, Quality, Duration, Modifying Factors, Severity) Note limiting factors. I wore appropriate PPE for the entirety of this encounter. HPI Siobhan Haas is a 62 y.o. female who presents to the emergency department with left lower extremity swelling and discomfort, history of necrotizing fasciitis, has history of AKA on the right, sent in from Dr. Bassett to plan for AKA on the left tomorrow Nursing Notes were reviewed. Limitations to history: None Outside historians: Family REVIEW OF SYSTEMS Review of Systems Pertinent positives and negatives as per HPI PAST MEDICAL HISTORY 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 ([facility]) 07/27/2020 Asthma Cellulitis Constipation Depression Fibromyalgia GERD (gastroesophageal reflux disease) Hx of right BKA ([facility]) ([facility]) Hypertension Morbidly obese ([facility]) ([facility]) 02/03/2019 BMI 50.52 On home O2 FAY treated with BiPAP Osteoarthritis Osteomyelitis of right foot ([facility]) SCHEDULED FOR THE SURGERY ON 02/11/2019 Seasonal allergies Shortness of breath URSULA (stress urinary incontinence, female) Vertigo SURGICAL HISTORY Past Surgical History: Procedure Laterality Date ABCESS DRAINAGE Right 08/07/2020 I&D of right BKA hematoma ANKLE SURGERY Left 12/19/2021 ankle I and D with placement of wound vac - dr alyssa PARKS ABDOMINOPLASTY BREAST SURGERY 2006 and abdomin removal for excess COLONOSCOPY COLONOSCOPY EXTREMITY SURGERY Left 01/24/2022 debridement necrotizing fasciitis LLE, wound vac FOOT SURGERY Right 02/11/2019 FOOT SURGERY Right 2019 [place] FOOT SURGERY Right 04/08/2019 I&D right foot with antibiotic spacer FOOT SURGERY Right 04/24/2019 I&D;, external fixator FOOT SURGERY Left 08/04/2021 peroneus longus tenolysis - Dr Gamino HYSTERECTOMY 1997 INCONTINENCE SURGERY 11/15/2015 synthetic mid urethral sling,cystoscopy JOINT REPLACEMENT LIPOMA RESECTION Right 2015 shoulder ORTHOPEDIC SURGERY Right 04/01/2019 I&D with removal hardware and antibiotic spacer placed OTHER SURGICAL HISTORY Left 11/19/2021 I+D L ankle OTHER SURGICAL HISTORY 09/21/2016 INTERSTIM STAGE II, COMPLEX ANALYSIS OF NEUROSTIMULATOR OTHER SURGICAL HISTORY Right 03/07/2019 debridement of right foot OTHER SURGICAL HISTORY 10/27/2021 Irrigation and debridement of left lower extremity OTHER SURGICAL HISTORY 07/27/2020 Excision of scar tissue, neuroma RIGHT below knee amputation OTHER SURGICAL HISTORY NERVE BLOCKS FROM PAIN MANAGEMENT OTHER SURGICAL HISTORY Right 04/02/2019 R foot skin graft/flap, wound debridement/Wound vac removal OTHER SURGICAL HISTORY Right 04/22/2019 right foot I and D OTHER SURGICAL HISTORY Right 05/06/2019 Right Below Knee Amputation (CPT 00130), #2 Excisional debridement right iliac crest (wound 7 cm length, 3 cm width, 7 cm depth) TONSILLECTOMY (HISTORICAL) TOTAL KNEE ARTHROPLASTY Left 2012 ARTHROSCOPY FIRST AND KNEE REPLACED WISDOM TOOTH EXTRACTION WOUND DEBRIDEMENT Left 10/28/2021 irrigation and debridment LLE CURRENT MEDICATIONS Current Discharge Medication List CONTINUE these medications which have NOT CHANGED Details albuterol (2.5 MG/3ML) 0.083% nebulizer solution 2.5 mg. !! albuterol 108 (90 Base) MCG/ACT inhaler INHALE 2 PUFFS FOUR TIMES DAILY NEEDED FOR WHEEZING !! albuterol 108 (90 Base) MCG/ACT inhaler INHALE 2 PUFFS PO Q 4 H PRN amitriptyline (Elavil) 100 MG tablet budesonide (Pulmicort) 0.25 MG/2ML nebulizer solution budesonide-formoterol (Symbicort) 160-4.5 MCG/ACT inhaler Inhale 2 puffs in the morning and 2 puffsin the evening. cholecalciferol (Vitamin D-3) 1.25 MG (18113 UT) capsule Take by mouth 1 (one) time per week. citalopram (CeleXA) 40 MG tablet Take 40 mg by mouth in the morning. cyclobenzaprine (Flexeril) 10 MG tablet Take 10 mg by mouth Nightly. Eliquis 5 MG tablet take 2 tablets by mouth TONIGHT, THEN 2 TABLETS TWICE A DAY FOR 5... (REFER TO PRESCRIPTION NOTES). famotidine (Pepcid) 20 MG tablet Take 20 mg by mouth in the morning and 20 mg before bedtime. fluticasone (Flonase) 50 MCG/ACT nasal spray 1 spray. furosemide (Lasix) 40 MG tablet Take 1 tablet by mouth in the morning. omeprazole (PriLOSEC) [address] capsule Take 1 capsule by mouth in the morning. pregabalin (Lyrica) 50 MG capsule TAKE 1 CAPSULE BY MOUTH TWICE DAILY FOR 28 DAYS spironolactone (Aldactone) 25 MG tablet Take 25 mg by mouth in the morning. tiotropium (Spiriva) [address] 18 mcg into inhaler and inhale in the morning. valsartan (Diovan) 320 MG tablet 320 mg. !! - Potential duplicate medications found. Please discuss with provider. ALLERGIES Amlodipine, Clonazepam, Ketamine, Lisinopril, and Vancomycin FAMILY HISTORY Family History Problem Relation Name Age of Onset Pancreatic cancer Mother Pancreatic cancer Father SOCIAL HISTORY Social History Socioeconomic History Marital status: Tobacco Use Smoking status: Former Packs/day: 0.15 Types: Cigarettes Quit date: 10/01/1981 Years since quittin.1 Smokeless tobacco: Never Substance and Sexual Activity Alcohol use: Yes Alcohol/week: 0.0 standard drinks Drug use: No Social History Narrative Has been in rehab facility in [place] alone, son close Friends help SCREENINGS PHYSICAL EXAM ED Triage Vitals [10/30/22 1402] Temp Heart Rate Resp BP 36.7 C (98 F) 85 18 124/79 SpO2 Temp Source Heart Rate Source Patient Position 96 % Temporal Monitor -- BP Location FiO2 (%) -- -- Physical Exam Infection erythema warmth induration and purulent drainage left lower extremity, pictures seen in media tab DIAGNOSTIC RESULTS RADIOLOGY (Per Emergency Physician): Interpretation per the Radiologist below, if available at the time of this note: Vascular US lower extremity arterial PVR Final Result XR tibia fibula 2 views left Final Result FINDINGS/IMPRESSION: Limitations: Somewhat limited by positioning and underpenetration. Soft tissues also incompletely imaged. Left total knee arthroplasty in place. Curvilinear calcific density adjacent to the medial left tibial plateau unchanged from prior CT. Chronic appearing areas of periostitis involving portions of the fibula and tibia. No radiographic evidence of acute fracture or acute erosive changes. Diffuse subcutaneous edema. Soft tissue/dermal irregularity overlying the proximal lateral left ankle could reflect soft tissue wound with subcutaneous gas felt to be less likely. Report Dictated on Electronically Signed By: Jaylan Ferrara Electronically Signed Date/Time: 10/30/2022 5:17 PM EST XR femur left 2+ views Final Result FINDINGS/IMPRESSION: Limitations: Limited by positioning and body habitus Left total knee arthroplasty prosthesis appears well seated without evidence of complication. Curvilinear calcific density adjacent to the left medial tibial plateau also present on prior CT and likely remote in etiology. Osteoarthritis involving the left hip. No subcutaneous gas within the visualized subcutaneous soft tissues. Report Dictated on Electronically Signed By: Jaylan Ferrara Electronically Signed Date/Time: 10/30/2022 5:03 PM EST XR chest 1 view Final Result No acute cardiopulmonary process identified. Mild vascular congestion without evidence of pulmonary edema. Correlate with volume status. Report Dictated on Electronically Signed By: Joce Krishnamurthy Electronically Signed Date/Time: 10/30/2022 4:42 PM EST LABS: Labs Reviewed CBC WITH AUTO DIFFERENTIAL - Abnormal Result Value Auto WBC 6.9 RBC 4.47 Hemoglobin 10.6 (*) Hematocrit 33.9 (*) MCV 75.8 (*) MCH 23.7 (*) MCHC 31.2 (*) RDW 23.1 (*) Platelets 398 MPV 7.6 nRBC 0.1 Neutrophils Relative 64.4 Lymphocytes Relative 22.7 Monocytes Relative 10.1 (*) Eosinophils Relative 1.8 Basophils Relative 1.0 Neutrophils Absolute 4.4 Lymphocytes Absolute 1.6 Monocytes Absolute 0.7 Eosinophils Absolute 0.1 Basophils Absolute 0.1 SEDIMENTATION RATE, AUTOMATED - Abnormal Sed Rate 74 (*) C-REACTIVE PROTEIN - Abnormal C REACTIVE PROTEIN 11.6 (*) HEMOGLOBIN AND HEMATOCRIT, BLOOD - Abnormal Hemoglobin 10.3 (*) Hematocrit 32.4 (*) CBC WITH AUTO DIFFERENTIAL - Abnormal Auto WBC 15.7 (*) RBC 3.97 Hemoglobin 9.8 (*) Hematocrit 31.8 (*) MCV 80.1 MCH 24.8 (*) MCHC 30.9 (*) RDW 23.7 (*) Platelets 337 MPV 7.8 nRBC 0.0 Neutrophils Relative 93.3 (*) Lymphocytes Relative 3.6 (*) Monocytes Relative 2.8 Eosinophils Relative 0.0 (*) Basophils Relative 0.3 Neutrophils Absolute 14.6 (*) Lymphocytes Absolute 0.6 (*) Monocytes Absolute 0.4 Eosinophils Absolute 0.0 Basophils Absolute 0.0 BASIC METABOLIC PANEL - Abnormal SODIUM 134 (*) POTASSIUM 4.4 CHLORIDE 105 CARBON DIOXIDE 22 UREA NITROGEN 13 CREATININE 0.73 GLUCOSE 266 (*) CALCIUM 8.1 (*) ANION GAP 8 eGFR >90.0 BASIC METABOLIC PANEL - Normal SODIUM 137 POTASSIUM 3.9 CHLORIDE 102 CARBON DIOXIDE 28 UREA NITROGEN 15 CREATININE 0.74 GLUCOSE 95 CALCIUM 9.0 ANION GAP 7 eGFR >90.0 PROTHROMBIN TIME - Normal PROTHROMBIN TIME 10.3 INR 1.0 APTT - Normal APTT 29.4 Narrative: NOTE: The therapeutic time for Heparin anticoagulation, based on Xa activity inhibition, is an APTTof 46-80 seconds. BLOOD TYPE AND SCREEN GEL ABO Grouping O Antibody Screen NEG Rh Type POS BASIC METABOLIC PANEL PREPARE RBC PRODUCT CODE [id number] Unit Number [id number] Unit ABO O Unit RH POS Crossmatch interpretation COMP Dispense Status Transfused Blood Expiration Date Product Blood Type 5100 Unit Volume 300 PRODUCT CODE [id number] Unit Number [id number] Unit ABO O Unit RH POS Crossmatch interpretation COMP Dispense Status Transfused Blood Expiration Date Product Blood Type 5100 Unit Volume 300 TISSUE EXAM All other labs were within normal range or not returned as of this dictation. EMERGENCY DEPARTMENT COURSE and DIFFERENTIAL DIAGNOSIS/MDM: Vitals: Vitals: 11/01/22 0524 11/01/22 0618 11/01/22 0629 11/01/22 0630 BP: 118/79 137/76 98/61 (!) 129/98 BP Location: Left arm Patient Position: Lying Pulse: (!) 119 (!) 112 (!) 113 (!) 113 Resp: 20 16 16 Temp: 36.1 C (96.9 F) 36.3 C (97.3 F) 37.1 C (98.7 F) TempSrc: Temporal Temporal Temporal SpO2: 94% 95% 94% 95% Weight: Height: Medications sodium chloride 0.9 % infusion ( IntraVENous Stopped 10/31/221927) LORazepam (Ativan) tablet 0.5 mg ( Oral MAR Unhold 10/31/222221) ceFAZolin in sodium chloride 0.9% (Ancef) IVPB 3,000 mg (0 mg IntraVENous Stopped 11/01/22247) albuterol (2.5 MG/3ML) 0.083% nebulizer solution 2.5 mg (has no administration in time range) amitriptyline (Elavil) tablet 100 mg (100 mg Oral Given 10/31/222300) mometasone-formoterol (Dulera 100) 100-5 MCG/ACT inhaler 2 puff (2 puffs Inhalation Not Given 10/31/222229) citalopram (CeleXA) tablet 40 mg (has no administration in time range) acetaminophen (Tylenol) tablet 650 mg (650 mg Oral Given 11/01/22 0540) methocarbamol (Robaxin) tablet 1,000 mg (has no administration in time range) HYDROmorphone (Dilaudid) injection 0.25 mg ( IntraVENous See Alternative 11/01/22 0038) Or HYDROmorphone (Dilaudid) injection 0.5 mg (0.5 mg IntraVENous Given 11/01/2237) naloxone (Narcan) 0.4 mg in 0.9% sodium chloride 10 mL syringe (has no administration in time range) oxyCODONE (Roxicodone) immediate release tablet 5 mg ( Oral See Alternative 11/01/22642) Or oxyCODONE (Roxicodone) immediate release tablet 10 mg (10 mg Oral Given 11/01/22642) Lidocaine 4 % patch 1 patch (has no administration in time range) gabapentin (Neurontin) capsule 300 mg (300 mg Oral Not Given 10/31/222229) midazolam (Versed) 2 MG/2ML injection - Pyxis ADS Override Pull ( Override pull for Anesthesia 10/31/22 160) LORazepam (Ativan) injection 0.5 mg (0.5 mg IntraVENous Given 10/31/222049) MDM elements: The patient presented with chief complaint of left lower extremity worsening infection, history of necrotizing fasciitis, sent in for admission from Dr. Bassett, has been on Keflex at home. The differential diagnosis associated with this patient's presentation includes recurrent necrotizing fasciitis, infection. Our workup consisted of ordering/reviewing: Preoperative labs, orthopedic consultation, admission to medicine Dr. Hinojosa. The patient will be Admitted. Patient is in agreement with this plan. PROCEDURES: Unless otherwise noted below, none Procedures FINAL IMPRESSION 1. Superficial incisional surgical site infection 2. Abrasion of lower leg with infection, initial encounter 3. Cellulitis of left lower limb DISPOSITION Admit 10/30/2022 02:48:44 PM PATIENT REFERRED TO: Rusty Bassett MD [address] [place] [address] [place] [id number] Schedule an appointment as soon as possible for a visit in 2 week(s) post op DISCHARGE MEDICATIONS: Current Discharge Medication List (Comment: Please note this report has been produced using speech recognition software and may contain errors related to that system including errors in grammar, punctuation, and spelling, as well as words and phrases that may be inappropriate. If there are any questions or concerns please feel freeto contact the dictating provider for clarification.) Himanshu Schaefer MD (electronically signed) Emergency Medicine Provider Himanshu Schaefer MD 11/01/22 0720 * Nicci Morris RN - 10/30/2022 1:17 PM EST Bed: 15 Expected date: Expected time: Means of arrival: Comments: triage Nicci Morris RN 10/30/22 173 documented in this [facility] [place] [facility]01-31-2023 Consult note* Lorne Winn MD - 10/31/2022 5:56 AM ESTAssociated Order(s): IP CONSULT TO VASCULAR SURGERY Vascular Surgery Consultation Note Reason for Consult: Unable to obtain SINDHU due to edema HISTORY OF PRESENT ILLNESS: The patient is a 62 y.o. female who is admitted to the hospital for treatment of LLE sweling. She has a history of LLE wounds that required debridement in December 2021 (ortho) and has dealt with LLE swelling since. She was seen as an outpatient by Dr. Bassett with plans for an elective L AKA. Shepresented to the ED with worsening LLE pain and was seen by Dr. Bassett with plans for a L AKA scheduled for today (10/31). 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 She is admitted under the medicine service. She has a history of PE which she was previously on Eliquis for, currently being held for surgery. The patient was previously seen by the vascular service (Dr. Mcdaniels) as an inpatient consult in Oct 2021 for LLE wounds, in which a PVR showed TBI 0.70 but SINDHU of 1.16. She had palpable pulses on exam with no evidence of arterial insufficiency contributing to her wounds. She had a PVR on 10/30 which showed a TBI of 0.81 and non-compressible pedal vessels, although therewas documented palpable 2+ DP/PT pulses with cap refill < 3 seconds. A vascular surgery consult was placed. Patient reports no new complaints this AM. Ready for OR. IMPRESSION: 62 y/o F with chronic LLE wounds/edema. Scheduled to undergo L AKA with ortho today. Vascular surgery is consulted d/t noncompressible pedal vessels on PVR, likely due to severe edema. Patient has triphasic pedal doppler signals. RECOMMENDATIONS: - No acute vascular surgery intervention - Triphasic doppler signals indicates she has adequate arterial flow to her foot and this is likelynot contributing to her LLE issues - Based on her palpable left femoral pulse, she should heal an AKA from the arterial perfusion perspective - Ok to proceed with L AKA with ortho from vascular surgery perspective - Please call with questions/concerns - Discussed with Dr. 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 ([facility]) 07/27/2020 Asthma Cellulitis Constipation Depression Fibromyalgia GERD (gastroesophageal reflux disease) Hx of right BKA ([facility]) ([facility]) Hypertension Morbidly obese ([facility]) ([facility]) 02/03/2019 BMI 50.52 On home O2 FAY treated with BiPAP Osteoarthritis Osteomyelitis of right foot ([facility]) SCHEDULED FOR THE SURGERY ON 02/11/2019 Seasonal allergies Shortness of breath URSULA (stress urinary incontinence, female) Vertigo Past Surgical History: Procedure Laterality Date ABCESS DRAINAGE Right 08/07/2020 I&D of right BKA hematoma ANKLE SURGERY Left 12/19/2021 ankle I and D with placement of wound vac - dr alyssa PARKS ABDOMINOPLASTY BREAST SURGERY 2006 and abdomin removal for excess COLONOSCOPY COLONOSCOPY EXTREMITY SURGERY Left 01/24/2022 debridement necrotizing fasciitis LLE, wound vac FOOT SURGERY Right 02/11/2019 FOOT SURGERY Right 2019 [place] FOOT SURGERY Right 04/08/2019 I&D right foot with antibiotic spacer FOOT SURGERY Right 04/24/2019 I&D;, external fixator FOOT SURGERY Left 08/04/2021 peroneus longus tenolysis - Dr Gamino HYSTERECTOMY 1997 INCONTINENCE SURGERY 11/15/2015 synthetic mid urethral sling,cystoscopy JOINT REPLACEMENT LIPOMA RESECTION Right 2015 shoulder ORTHOPEDIC SURGERY Right 04/01/2019 I&D with removal hardware and antibiotic spacer placed OTHER SURGICAL HISTORY Left 11/19/2021 I+D L ankle OTHER SURGICAL HISTORY 09/21/2016 INTERSTIM STAGE II, COMPLEX ANALYSIS OF NEUROSTIMULATOR OTHER SURGICAL HISTORY Right 03/07/2019 debridement of right foot OTHER SURGICAL HISTORY 10/27/2021 Irrigation and debridement of left lower extremity OTHER SURGICAL HISTORY 07/27/2020 Excision of scar tissue, neuroma RIGHT below knee amputation OTHER SURGICAL HISTORY NERVE BLOCKS FROM PAIN MANAGEMENT OTHER SURGICAL HISTORY Right 04/02/2019 R foot skin graft/flap, wound debridement/Wound vac removal OTHER SURGICAL HISTORY Right 04/22/2019 right foot I and D OTHER SURGICAL HISTORY Right 05/06/2019 Right Below Knee Amputation (CPT 04479), #2 Excisional debridement right iliac crest (wound 7 cm length, 3 cm width, 7 cm depth) TONSILLECTOMY (HISTORICAL) TOTAL KNEE ARTHROPLASTY Left 2012 ARTHROSCOPY FIRST AND KNEE REPLACED WISDOM TOOTH EXTRACTION WOUND DEBRIDEMENT Left 10/28/2021 irrigation and debridment LLE Current Medications: sodium chloride, 50 mL/hr, Last Rate: Stopped (10/30/222009) PRN medications: acetaminophen Allergies: Amlodipine, Clonazepam, Ketamine, Lisinopril, and Vancomycin Social History Socioeconomic History Marital status: Spouse name: Not on file Number of children: Not on file Years of education: Not on file Highest education level: Not on file Occupational History Not on file Tobacco Use Smoking status: Former Packs/day: 0.15 Types: Cigarettes Quit date: 10/01/1981 Years since quittin.1 Smokeless tobacco: Never Substance and Sexual Activity Alcohol use: Yes Alcohol/week: 0.0 standard drinks Drug use: No Sexual activity: Not on file Other Topics Concern Not on file Social History Narrative Has been in rehab facility in [place] alone, son close Friends help Social Determinants of Health Financial Resource Strain: Not on file Food Insecurity: Not on file Transportation Needs: Not on file Physical Activity: Not on file Stress: Not on file Social Connections: Not on file Intimate Partner Violence: Not on file Housing Stability: Not on file Family History Problem Relation Name Age of Onset Pancreatic cancer Mother Pancreatic cancer Father REVIEW OF SYSTEMS: The chart was reviewed. Review of Systems Constitutional: Negative for chills and fever. HENT: Negative for hearing loss and trouble swallowing. Eyes: Negative for photophobia and visual disturbance. Respiratory: Negative for chest tightness and shortness of breath. Cardiovascular: Positive for leg swelling. Negative for chest pain and palpitations. Gastrointestinal: Negative for abdominal distention, abdominal pain, blood in stool, constipation, diarrhea, nausea and vomiting. Genitourinary: Negative for difficulty urinating and dysuria. Musculoskeletal: Positive for myalgias. Negative for back pain. Skin: Positive for wound. Negative for rash. Neurological: Negative for weakness and light-headedness. Psychiatric/Behavioral: The patient is not nervous/anxious and is not hyperactive. LABS: Lab Results Component Value Date CREATININE 0.74 10/30/2022 Lab Results Component Value Date WBC 6.9 10/30/2022 HGB 10.6 (L) 10/30/2022 HCT 33.9 (L) 10/30/2022 MCV 75.8 (L) 10/30/2022 PLT 398 10/30/2022 Lab Results Component Value Date INR 1.0 10/30/2022 INR 1.1 01/24/2022 INR 1.0 10/26/2021 PROTIME 10.3 10/30/2022 PROTIME 11.4 01/24/2022 PROTIME 10.9 10/26/2021 No results found for: VLDL PHYSICAL EXAM: Vitals: 10/31/22 0134 BP: 130/68 Pulse: 78 Resp: 16 Temp: SpO2: 95% Physical Exam Vitals reviewed. Constitutional: General: She is not in acute distress. Appearance: Normal appearance. She is not ill-appearing, toxic-appearing or diaphoretic. HENT: Head: Normocephalic and atraumatic. Right Ear: External ear normal. Left Ear: External ear normal. Eyes: General: No scleral icterus. Conjunctiva/sclera: Conjunctivae normal. Cardiovascular: Rate and Rhythm: Normal rate and regular rhythm. Pulses: Radial pulses are 2+ on the right side and 2+ on the left side. Femoral pulses are 2+ on the right side and 2+ on the left side. Dorsalis pedis pulses are detected w/ Doppler on the left side. Posterior tibial pulses are detected w/ Doppler on the left side. Comments: R BKA L triphasic DP/PT doppler signals SILT, BCR L toes Pulmonary: Effort: Pulmonary effort is normal. No respiratory distress. Breath sounds: No stridor. Chest: Chest wall: No tenderness. Abdominal: General: There is no distension. Palpations: Abdomen is soft. Tenderness: There is no abdominal tenderness. There is no guarding or rebound. Musculoskeletal: General: Swelling and tenderness present. No signs of injury. Normal range of motion. Cervical back: Normal range of motion and neck supple. No rigidity. Comments: R BKA LLE edema to thigh. Left bhagat wound with serous drainage. Skin: General: Skin is warm and dry. Neurological: General: No focal deficit present. Mental Status: She is alert and oriented to person, place, and time. Sensory: No sensory deficit. Psychiatric: Mood and Affect: Mood normal. Behavior: Behavior normal. Thought Content: Thought content normal. LABS: Lab Results Component Value Date WBC 6.9 10/30/2022 HGB 10.6 (L) 10/30/2022 HCT 33.9 (L) 10/30/2022 PLT 398 10/30/2022 PROTIME 10.3 10/30/2022 INR 1.0 10/30/2022 K 3.9 10/30/2022 BUN 15 10/30/2022 CREATININE 0.74 10/30/2022 VASCULAR TESTING: . Associated attestation - Sandi Mcdaniels MD - 11/02/2022 9:46 AM EST I saw and evaluated the patient, participating in the jose portions of the service. I reviewed the resident s note. I agree with the resident s findings and plan. [place] [facility] [employer] Work Phone: 1(198) 486-660601-31-2023 Consult note* Lorne Winn MD - 10/31/2022 5:56 AM ESTAssociated Order(s): IP CONSULT TO VASCULAR SURGERY Vascular Surgery Consultation Note Reason for Consult: Unable to obtain SINDHU due to edema HISTORY OF PRESENT ILLNESS: The patient is a 62 y.o. female who is admitted to the hospital for treatment of LLE sweling. She has a history of LLE wounds that required debridement in December 2021 (ortho) and has dealt with LLE swelling since. She was seen as an outpatient by Dr. Bassett with plans for an elective L AKA. Shepresented to the ED with worsening LLE pain and was seen by Dr. Bassett with plans for a L AKA scheduled for today (10/31). 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 She is admitted under the medicine service. She has a history of PE which she was previously on Eliquis for, currently being held for surgery. The patient was previously seen by the vascular service (Dr. Mcdaniels) as an inpatient consult in Oct 2021 for LLE wounds, in which a PVR showed TBI 0.70 but SINDHU of 1.16. She had palpable pulses on exam with no evidence of arterial insufficiency contributing to her wounds. She had a PVR on 10/30 which showed a TBI of 0.81 and non-compressible pedal vessels, although therewas documented palpable 2+ DP/PT pulses with cap refill < 3 seconds. A vascular surgery consult was placed. Patient reports no new complaints this AM. Ready for OR. IMPRESSION: 62 y/o F with chronic LLE wounds/edema. Scheduled to undergo L AKA with ortho today. Vascular surgery is consulted d/t noncompressible pedal vessels on PVR, likely due to severe edema. Patient has triphasic pedal doppler signals. RECOMMENDATIONS: - No acute vascular surgery intervention - Triphasic doppler signals indicates she has adequate arterial flow to her foot and this is likelynot contributing to her LLE issues - Based on her palpable left femoral pulse, she should heal an AKA from the arterial perfusion perspective - Ok to proceed with L AKA with ortho from vascular surgery perspective - Please call with questions/concerns - Discussed with Dr. 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 ([facility]) 07/27/2020 Asthma Cellulitis Constipation Depression Fibromyalgia GERD (gastroesophageal reflux disease) Hx of right BKA ([facility]) ([facility]) Hypertension Morbidly obese ([facility]) ([facility]) 02/03/2019 BMI 50.52 On home O2 FAY treated with BiPAP Osteoarthritis Osteomyelitis of right foot ([facility]) SCHEDULED FOR THE SURGERY ON 02/11/2019 Seasonal allergies Shortness of breath URSULA (stress urinary incontinence, female) Vertigo Past Surgical History: Procedure Laterality Date ABCESS DRAINAGE Right 08/07/2020 I&D of right BKA hematoma ANKLE SURGERY Left 12/19/2021 ankle I and D with placement of wound vac - dr alyssa PARKS ABDOMINOPLASTY BREAST SURGERY 2006 and abdomin removal for excess COLONOSCOPY COLONOSCOPY EXTREMITY SURGERY Left 01/24/2022 debridement necrotizing fasciitis LLE, wound vac FOOT SURGERY Right 02/11/2019 FOOT SURGERY Right 2019 [place] FOOT SURGERY Right 04/08/2019 I&D right foot with antibiotic spacer FOOT SURGERY Right 04/24/2019 I&D;, external fixator FOOT SURGERY Left 08/04/2021 peroneus longus tenolysis - Dr Gamino HYSTERECTOMY 1997 INCONTINENCE SURGERY 11/15/2015 synthetic mid urethral sling,cystoscopy JOINT REPLACEMENT LIPOMA RESECTION Right 2014 shoulder ORTHOPEDIC SURGERY Right 04/01/2019 I&D with removal hardware and antibiotic spacer placed OTHER SURGICAL HISTORY Left 11/19/2021 I+D L ankle OTHER SURGICAL HISTORY 09/21/2016 INTERSTIM STAGE II, COMPLEX ANALYSIS OF NEUROSTIMULATOR OTHER SURGICAL HISTORY Right 03/07/2019 debridement of right foot OTHER SURGICAL HISTORY 10/27/2021 Irrigation and debridement of left lower extremity OTHER SURGICAL HISTORY 07/27/2020 Excision of scar tissue, neuroma RIGHT below knee amputation OTHER SURGICAL HISTORY NERVE BLOCKS FROM PAIN MANAGEMENT OTHER SURGICAL HISTORY Right 04/02/2019 R foot skin graft/flap, wound debridement/Wound vac removal OTHER SURGICAL HISTORY Right 04/22/2019 right foot I and D OTHER SURGICAL HISTORY Right 05/06/2019 Right Below Knee Amputation (CPT 41783), #2 Excisional debridement right iliac crest (wound 7 cm length, 3 cm width, 7 cm depth) TONSILLECTOMY (HISTORICAL) TOTAL KNEE ARTHROPLASTY Left 2012 ARTHROSCOPY FIRST AND KNEE REPLACED WISDOM TOOTH EXTRACTION WOUND DEBRIDEMENT Left 10/28/2021 irrigation and debridment LLE Current Medications: sodium chloride, 50 mL/hr, Last Rate: Stopped (10/30/222009) PRN medications: acetaminophen Allergies: Amlodipine, Clonazepam, Ketamine, Lisinopril, and Vancomycin Social History Socioeconomic History Marital status: Spouse name: Not on file Number of children: Not on file Years of education: Not on file Highest education level: Not on file Occupational History Not on file Tobacco Use Smoking status: Former Packs/day: 0.15 Types: Cigarettes Quit date: 10/01/1981 Years since quittin.1 Smokeless tobacco: Never Substance and Sexual Activity Alcohol use: Yes Alcohol/week: 0.0 standard drinks Drug use: No Sexual activity: Not on file Other Topics Concern Not on file Social History Narrative Has been in rehab facility in [place] Lives alone, son close Friends help Social Determinants of Health Financial Resource Strain: Not on file Food Insecurity: Not on file Transportation Needs: Not on file Physical Activity: Not on file Stress: Not on file Social Connections: Not on file Intimate Partner Violence: Not on file Housing Stability: Not on file Family History Problem Relation Name Age of Onset Pancreatic cancer Mother Pancreatic cancer Father REVIEW OF SYSTEMS: The chart was reviewed. Review of Systems Constitutional: Negative for chills and fever. HENT: Negative for hearing loss and trouble swallowing. Eyes: Negative for photophobia and visual disturbance. Respiratory: Negative for chest tightness and shortness of breath. Cardiovascular: Positive for leg swelling. Negative for chest pain and palpitations. Gastrointestinal: Negative for abdominal distention, abdominal pain, blood in stool, constipation, diarrhea, nausea and vomiting. Genitourinary: Negative for difficulty urinating and dysuria. Musculoskeletal: Positive for myalgias. Negative for back pain. Skin: Positive for wound. Negative for rash. Neurological: Negative for weakness and light-headedness. Psychiatric/Behavioral: The patient is not nervous/anxious and is not hyperactive. LABS: Lab Results Component Value Date CREATININE 0.74 10/30/2022 Lab Results Component Value Date WBC 6.9 10/30/2022 HGB 10.6 (L) 10/30/2022 HCT 33.9 (L) 10/30/2022 MCV 75.8 (L) 10/30/2022 PLT 398 10/30/2022 Lab Results Component Value Date INR 1.0 10/30/2022 INR 1.1 01/24/2022 INR 1.0 10/26/2021 PROTIME 10.3 10/30/2022 PROTIME 11.4 01/24/2022 PROTIME 10.9 10/26/2021 No results found for: VLDL PHYSICAL EXAM: Vitals: 10/31/22 0134 BP: 130/68 Pulse: 78 Resp: 16 Temp: SpO2: 95% Physical Exam Vitals reviewed. Constitutional: General: She is not in acute distress. Appearance: Normal appearance. She is not ill-appearing, toxic-appearing or diaphoretic. HENT: Head: Normocephalic and atraumatic. Right Ear: External ear normal. Left Ear: External ear normal. Eyes: General: No scleral icterus. Conjunctiva/sclera: Conjunctivae normal. Cardiovascular: Rate and Rhythm: Normal rate and regular rhythm. Pulses: Radial pulses are 2+ on the right side and 2+ on the left side. Femoral pulses are 2+ on the right side and 2+ on the left side. Dorsalis pedis pulses are detected w/ Doppler on the left side. Posterior tibial pulses are detected w/ Doppler on the left side. Comments: R BKA L triphasic DP/PT doppler signals SILT, BCR L toes Pulmonary: Effort: Pulmonary effort is normal. No respiratory distress. Breath sounds: No stridor. Chest: Chest wall: No tenderness. Abdominal: General: There is no distension. Palpations: Abdomen is soft. Tenderness: There is no abdominal tenderness. There is no guarding or rebound. Musculoskeletal: General: Swelling and tenderness present. No signs of injury. Normal range of motion. Cervical back: Normal range of motion and neck supple. No rigidity. Comments: R BKA LLE edema to thigh. Left bhagat wound with serous drainage. Skin: General: Skin is warm and dry. Neurological: General: No focal deficit present. Mental Status: She is alert and oriented to person, place, and time. Sensory: No sensory deficit. Psychiatric: Mood and Affect: Mood normal. Behavior: Behavior normal. Thought Content: Thought content normal. LABS: Lab Results Component Value Date WBC 6.9 10/30/2022 HGB 10.6 (L) 10/30/2022 HCT 33.9 (L) 10/30/2022 PLT 398 10/30/2022 PROTIME 10.3 10/30/2022 INR 1.0 10/30/2022 K 3.9 10/30/2022 BUN 15 10/30/2022 CREATININE 0.74 10/30/2022 VASCULAR TESTING: . Associated attestation - Sandi Mcdaniels MD - 11/02/2022 9:46 AM EST I saw and evaluated the patient, participating in the jose portions of the service. I reviewed the resident s note. I agree with the resident s findings and plan. * Joanna Leslie PA-C - 10/30/2022 3:06 PM ESTAssociated Order(s): IP CONSULT TO ORTHOPAEDIC SURGERY Images from the original note were not included. Ortho H&P/Consult Patient: Siobhan Haas Date of : 1960 Acct: [id number] PCP: Oj Maddox Date of Admission: (Not on file) Date of Service: Pt seen/examined on 10/30/2022 Chief Complaint: Left leg swelling History Of Present Illness: This is a 62 y.o. female with past medical history of bilateral pulmonary emboli (08/2022, currently on Eliquis) who presents to [facility] today (10/30/2022) withchief complaint of left leg swelling. The patient reports that her left leg symptoms began in 12/2021 following a diagnosis of necrotizingfasciitis. The patient reports that she underwent surgery for necrotizing fasciitis in 12/2021, and since the surgery, she has had difficulties with left lower extremity swelling. The patient has beencontinuing her care with Dr. Bassett, and most recently saw Dr. Bassett on 10/23/2022. At that time, discussed with patient undergoing left above-knee amputation on 11/07/2022. The patient states that typically, her left lower extremity swelling reduces after a period of lying supine. However, the patient reports that she awoke this morning, and had increased left lower extremity swelling/erythema. The patient called into the office today due to increased swelling, and Dr. Bassett's MELISSA, Jennifer Mata, advised the patient to go to the emergency department today to prepare for surgery tomorrow (10/31/2022). The patient has been taking oral Keflex 500 mg since discharge from the hospital approximately 2 weeks ago. The patient reports that she is prescribed Keflex 500 mg 4 times daily, however has only been taking the Keflex 2-3 times daily. Patient denies any fevers, chills, or malaise. Patient endorses serosanguineous drainage from the left lower extremity incision. Patient denies any purulent drainage from the left lower extremity. She endorses pain into the left lower extremity distal to the knee Of note, patient has previous right below-knee amputation from 05/2020. Tobacco use: Denies Alcohol use: Denies Illicit substance use: Denies Ambulation status: Walker, right lower extremity prosthetic Anticoagulation use: Eliquis Hx from chart and Pt. 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 ([facility]) 07/27/2020 Asthma Cellulitis Constipation Depression Fibromyalgia GERD (gastroesophageal reflux disease) Hx of right BKA ([facility]) ([facility]) Hypertension Morbidly obese ([facility]) ([facility]) 02/03/2019 BMI 50.52 On home O2 FAY treated with BiPAP Osteoarthritis Osteomyelitis of right foot ([facility]) SCHEDULED FOR THE SURGERY ON 02/11/2019 Seasonal allergies Shortness of breath URSULA (stress urinary incontinence, female) Vertigo Past Surgical History: Past Surgical History: Procedure Laterality Date ABCESS DRAINAGE Right 08/07/2020 I&D of right BKA hematoma ANKLE SURGERY Left 12/19/2021 ankle I and D with placement of wound vac - dr shah TOW ABDOMINOPLASTY BREAST SURGERY 2006 and abdomin removal for excess COLONOSCOPY COLONOSCOPY EXTREMITY SURGERY Left 01/24/2022 debridement necrotizing fasciitis LLE, wound vac FOOT SURGERY Right 02/11/2019 FOOT SURGERY Right 2019 [place] FOOT SURGERY Right 04/08/2019 I&D right foot with antibiotic spacer FOOT SURGERY Right 04/24/2019 I&D;, external fixator FOOT SURGERY Left 08/04/2021 peroneus longus tenolysis - Dr Gamino HYSTERECTOMY 1997 INCONTINENCE SURGERY 11/15/2015 synthetic mid urethral sling,cystoscopy JOINT REPLACEMENT LIPOMA RESECTION Right 2015 shoulder ORTHOPEDIC SURGERY Right 04/01/2019 I&D with removal hardware and antibiotic spacer placed OTHER SURGICAL HISTORY Left 11/19/2021 I+D L ankle OTHER SURGICAL HISTORY 09/21/2016 INTERSTIM STAGE II, COMPLEX ANALYSIS OF NEUROSTIMULATOR OTHER SURGICAL HISTORY Right 03/07/2019 debridement of right foot OTHER SURGICAL HISTORY 10/27/2021 Irrigation and debridement of left lower extremity OTHER SURGICAL HISTORY 07/27/2020 Excision of scar tissue, neuroma RIGHT below knee amputation OTHER SURGICAL HISTORY NERVE BLOCKS FROM PAIN MANAGEMENT OTHER SURGICAL HISTORY Right 04/02/2019 R foot skin graft/flap, wound debridement/Wound vac removal OTHER SURGICAL HISTORY Right 04/22/2019 right foot I and D OTHER SURGICAL HISTORY Right 05/06/2019 Right Below Knee Amputation (CPT 76377), #2 Excisional debridement right iliac crest (wound 7 cm length, 3 cm width, 7 cm depth) TONSILLECTOMY (HISTORICAL) TOTAL KNEE ARTHROPLASTY Left 2012 ARTHROSCOPY FIRST AND KNEE REPLACED WISDOM TOOTH EXTRACTION WOUND DEBRIDEMENT Left 10/28/2021 irrigation and debridment LLE Home Medications: Prior to Admission medications Medication Sig Start Date End Date Taking? Authorizing Provider albuterol (2.5 MG/3ML) 0.083% nebulizer solution 2.5 mg. 03/23/22 Historical Provider, albuterol 108 (90 Base) MCG/ACT inhaler INHALE 2 PUFFS FOUR TIMES DAILY NEEDED FOR WHEEZING 03/23/22 Historical Provider, albuterol 108 (90 Base) MCG/ACT inhaler INHALE 2 PUFFS PO Q 4 H PRN 08/11/16 Historical Provider, amitriptyline (Elavil) 100 MG tablet 08/09/22 Historical Provider, budesonide (Pulmicort) 0.25 MG/2ML nebulizer solution 12/23/21 Historical Provider, budesonide-formoterol (Symbicort) 160-4.5 MCG/ACT inhaler Inhale 2 puffs in the morning and 2 puffsin the evening. Historical Provider, cephalexin (Keflex) 500 MG capsule take 1 capsule by mouth every 8 hours --TAKE ONE DOSE TONIGHT, AN... (REFER TO PRESCRIPTION NOTES). 09/05/22 Historical Provider, cholecalciferol (Vitamin D-3) 1.25 MG (89095 UT) capsule Take by mouth 1 (one) time per week. 03/23/22 Historical Provider, citalopram (CeleXA) 40 MG tablet Take 40 mg by mouth in the morning. 03/23/22 Historical Provider, cyclobenzaprine (Flexeril) 10 MG tablet Take 10 mg by mouth Nightly. 07/19/15 Historical Provider, Eliquis 5 MG tablet take 2 tablets by mouth TONIGHT, THEN 2 TABLETS TWICE A DAY FOR 5... (REFER TO PRESCRIPTION NOTES). 09/05/22 Historical Provider, famotidine (Pepcid) 20 MG tablet Take 20 mg by mouth in the morning and 20 mg before bedtime. 03/23/22 Historical Provider, fluticasone (Flonase) 50 MCG/ACT nasal spray 1 spray. Historical Provider, furosemide (Lasix) 40 MG tablet Take 1 tablet by mouth in the morning. 03/06/22 Historical Provider, hydrocortisone 2.5 % cream APPLY TO AFFECTED AREA TWO TIMES A DAY 02/01/22 02/01/23 Vinh Collins, linezolid (Zyvox) 600 MG tablet TAKE 1 TABLET BY MOUTH EVERY 12 HOURS UNTIL GONE 02/01/22 02/01/23 Vinh Collins DO omeprazole (PriLOSEC) [address] capsule Take 1 capsule by mouth in the morning. 07/12/15 Historical Provider, pregabalin (Lyrica) 50 MG capsule TAKE 1 CAPSULE BY MOUTH TWICE DAILY FOR 28 DAYS 04/10/22 Historical Provider, spironolactone (Aldactone) 25 MG tablet Take 25 mg by mouth in the morning. Historical Provider, tiotropium (Spiriva) [address] 18 mcg into inhaler and inhale in the morning.Historical Provider, valsartan (Diovan) 320 MG tablet 320 mg. 03/23/22 09/19/22 Historical Provider, Current Hospital Medications: No current facility-administered medications for this encounter. Current Outpatient Medications: albuterol (2.5 MG/3ML) 0.083% nebulizer solution, 2.5 mg., Disp: , Rfl: albuterol 108 (90 Base) MCG/ACT inhaler, INHALE 2 PUFFS FOUR TIMES DAILY NEEDED FOR WHEEZING, Disp: , Rfl: albuterol 108 (90 Base) MCG/ACT inhaler, INHALE 2 PUFFS PO Q 4 H PRN, Disp: , Rfl: amitriptyline (Elavil) 100 MG tablet, , Disp: , Rfl: budesonide (Pulmicort) 0.25 MG/2ML nebulizer solution, , Disp: , Rfl: budesonide-formoterol (Symbicort) 160-4.5 MCG/ACT inhaler, Inhale 2 puffs in the morning and 2 puffs in the evening., Disp: , Rfl: cephalexin (Keflex) 500 MG capsule, take 1 capsule by mouth every 8 hours --TAKE ONE DOSE TONIGHT, AN... (REFER TO PRESCRIPTION NOTES)., Disp: , Rfl: cholecalciferol (Vitamin D-3) 1.25 MG (11371 UT) capsule, Take by mouth 1 (one) time per week., Disp: , Rfl: citalopram (CeleXA) 40 MG tablet, Take 40 mg by mouth in the morning., Disp: , Rfl: cyclobenzaprine (Flexeril) 10 MG tablet, Take 10 mg by mouth Nightly., Disp: , Rfl: Eliquis 5 MG tablet, take 2 tablets by mouth TONIGHT, THEN 2 TABLETS TWICE A DAY FOR 5... (REFER TOPRESCRIPTION NOTES)., Disp: , Rfl: famotidine (Pepcid) 20 MG tablet, Take 20 mg by mouth in the morning and 20 mg before bedtime., Disp: , Rfl: fluticasone (Flonase) 50 MCG/ACT nasal spray, 1 spray., Disp: , Rfl: furosemide (Lasix) 40 MG tablet, Take 1 tablet by mouth in the morning., Disp: , Rfl: hydrocortisone 2.5 % cream, APPLY TO AFFECTED AREA TWO TIMES A DAY, Disp: 30 g, Rfl: 0 linezolid (Zyvox) 600 MG tablet, TAKE 1 TABLET BY MOUTH EVERY 12 HOURS UNTIL GONE, Disp: 10 tablet,Rfl: 0 omeprazole (PriLOSEC) [address] capsule, Take 1 capsule by mouth in the morning., Disp: , Rfl: pregabalin (Lyrica) 50 MG capsule, TAKE 1 CAPSULE BY MOUTH TWICE DAILY FOR 28 DAYS, Disp: , Rfl: spironolactone (Aldactone) 25 MG tablet, Take 25 mg by mouth in the morning., Disp: , Rfl: tiotropium (Spiriva) 18 MCG inhalation capsule, Place 18 mcg into inhaler and inhale in the morning., Disp: , Rfl: valsartan (Diovan) 320 MG tablet, 320 mg., Disp: , Rfl: Allergies: Amlodipine, Clonazepam, Ketamine, Lisinopril, and Vancomycin Social History: Social History Socioeconomic History Marital status: Spouse name: Not on file Number of children: Not on file Years of education: Not on file Highest education level: Not on file Occupational History Not on file Tobacco Use Smoking status: Former Packs/day: 0.15 Types: Cigarettes Quit date: 10/01/1981 Years since quittin.1 Smokeless tobacco: Never Substance and Sexual Activity Alcohol use: Yes Alcohol/week: 0.0 standard drinks Drug use: No Sexual activity: Not on file Other Topics Concern Not on file Social History Narrative Has been in rehab facility in [place] Lives alone, son close Friends help Social Determinants of Health Financial Resource Strain: Not on file Food Insecurity: Not on file Transportation Needs: Not on file Physical Activity: Not on file Stress: Not on file Social Connections: Not on file Intimate Partner Violence: Not on file Housing Stability: Not on file Family History: Family History Problem Relation Name Age of Onset Pancreatic cancer Mother Pancreatic cancer Father Further Family History is noncontributory to this injury. REVIEW OF SYSTEMS: Review of Systems - General ROS: negative for - chills, fatigue, fever, malaise or night sweats Psychological ROS: negative Ophthalmic ROS: negative ENT ROS: negative for - headaches or sore throat Hematological and Lymphatic ROS: Positive for bilateral PE, 08/2022 Respiratory ROS: no cough, shortness of breath, or wheezing Cardiovascular ROS: no chest pain or dyspnea on exertion Gastrointestinal ROS: negative Musculoskeletal ROS: See HPI Neurological ROS: negative for - bowel and bladder control changes, gait disturbance or numbness/tingling All other systems reviewed and are negative PHYSICAL EXAM: BP 124/79 Pulse 85 Temp 36.7 C (98 F) (Temporal) Resp 18 Ht 1.676 m (5' 6) Wt (!) 159 kg(350 lb) SpO2 96% BMI 56.49 kg/m GENERAL APPEARANCE: Awake and oriented x4. No acute distress, except appropriate to injury. MOOD AND AFFECT: Calm appropriate to situation GAIT AND STATION: Patient is in wheelchair COORDINATION and BALANCE: Patient is grossly coordinated Lymphadenopathy: none on examination of the affected extremity(s) Right Upper Extremity: -No obvious pain or deformity to inspection with normal joint range of motion, stability, and muscle strength except noted below -No TTP over clavicle, shoulder, humerus, elbow, forearm, wrist, hand, or fingers -TTP: nontender throughout extremity -Radial pulse palpable -SILT in radial/median/ ulnar nerve distributions -Motor + AIN/PIN/ulnar nerve functions -No Lymphedema -Skin intact except where noted below -Painless pROM at shoulder/elbow/wrist Left Upper Extremity: -No obvious pain or deformity to inspection with normal joint range of motion, stability, and muscle strength except noted below -No TTP over clavicle, shoulder, humerus, elbow, forearm, wrist, hand, or fingers -TTP: nontender throughout extremity -Radial pulse palpable -SILT in radial/median/ ulnar nerve distributions -Motor + AIN/PIN/ulnar nerve functions -No Lymphedema -Skin intact except where noted below -Painless pROM at shoulder/elbow/wrist Left lower Extremity: -No obvious pain or deformity to inspection with normal joint range of motion, stability, and muscle strength except noted below -No TTP over pelvis, hip, thigh, knee, lateral mal, medial mal, calc, midfoot, forefoot -TTP: tibia -Pulse: DP Palpable, -SILT in the superficial peroneal, deep peroneal, tibial, sural, saphenous nerve distributions -Motor function of quad, tibialis anterior, extensor hallucis longus, and gactrocsoleus complex intact -Skin intact except where noted below -Painless pROM at hip/knee/ankle Previous surgical incision over the anterior and medial tibia. There is macerated skin within the surgical incision with dried serosanguineous drainage. No open wounds that probe deep to bone. No appreciable drainage. There is surrounding cellulitis about the left lower extremity incision that extends to the level of the knee approximately. There is significant induration throughout the left lower extremity. Pitting edema circumferentially throughout the left lower extremity. Left anterior knee Left anterior tibia/fibula Left anterior tibia/fibula Left medial tibia Left medial tibia Right Lower Extremity: -No obvious pain or deformity to inspection with normal joint range of motion, stability, and muscle strength except noted below -No TTP over pelvis, hip, thigh, knee, tibia -TTP: Nontender throughout extremity -Pulse: Stump is warm and well-perfused -SILT intact to stump -Motor function of quad intact -No Lymphedema -Skin intact except where noted below -Painless pROM at hip/knee Evidence of previous right below-knee amputation. Surgical incision appears to be clean/dry/intact without evidence of wound breakdown or dehiscence. Right distal tibia/fibula Right medial tibia Labs: CBC: No results found for: WBC, RBC BMP:No results found for: GLUCOSE, SODIUM, POTASSIUM, CHLORIDE, CO2, BUN, CREATININE, CALCIUM PT/INR: No results found for: PT, INR, APTT Type and Screen: No results found for: RH, LABANTI CRP: No results found for: CRP ESR: No results found for: SEDRATE HgBA1c: No components found for: LABA1C The above labs were reviewed by me. Radiology: The below images were independently reviewed and interpreted with pertinent findings noted below. XR: Left femur x-ray (10/30/2022): Pending Left tibia/fibula x-ray (10/30/2022): Pending Radiology reports reviewed. ASSESSMENT: 62 y.o. female with left tibia surgical site infection in the setting of previous hardware placed to the left knee PLAN: -D/w Dr. Bassett -Plan for OR 10/31/2022 for left above-knee amputation with possible wound vacuum application -NPO at midnight -Clearance/optimization per medicine, a message was sent to Dr. Nessa Hinojosa, who plans to discuss optimization status in his note following evaluation -Consented I had a long discussion with the patient regarding the surgical treatment option of left above-kneeamputation with possible wound vacuum application. The risks and benefits of surgery were discussedwith the patient at length. Patient conveyed understanding. All questions were answered to the patient's satisfaction. The patient states that if a transfusion of blood is recommended for lifesaving measures , the patient is willing to have a blood transfusion. The patient was also advised on other risks of surgery, including: Blood loss from arteries or veins requiring tying off or repairing of the vessels. Transfusions of blood, which have a risk of allergic transfusion reactions and viral illnesses, including hepatitis and HIV. Infection, including wound or bone infections, with subsequent need for antibiotics or future surgical procedures. The need for further surgery. Damage to nearby anatomic structures. Risks associated with anesthesia -Add pending -Labs in process -Ice -WBAT LLE; up with assist -Admit to medicine -Pain control and medical management per medicine -Please hold DVT prophylaxis in anticipation of OR -Please comment on clearance in case of OR, page ortho pgr [phone] with clearance status -X-rays pending -Orthopaedic surgery will follow. 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 documented in this [place] [id number] Emergency department Note* Chelsea Martinez RN - 10/30/2022 11:44 PM EST Report given to RONAL Marshall for lunch coverage x1 hour. 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 Dr. Collins messaged via [employer]. Awaiting response at this time. Pt given snacks and gingerale. Chelsea Martinez RN 10/30/222241 [facility]01-30-2023 Emergency department Note* Chelsea Martinez RN - 10/30/2022 9:00 PM EST This RN has given pt a regular hospital bed to increase comfort and maintain skin integrity. Pt's family member at has been given a recliner to sleep in. Call light in hand, side rails x2, pt has no requests at this time. Chelsea Martinez RN [facility]222212 [id number]* Chelsea Martinez RN - 10/30/2022 7:30 PM EST Report received from RONAL Hernandez. This RN to assume care of pt at this time. Pt resting in bed with family at eating dinner tray. Pt has no requests at this time. Call light in hand, side rails x2. Chelsea Martinez RN 10/30/221930 [id number]* Mary Lu RN - 10/30/2022 6:34 PM EST Patient received dinner tray Mary Lu RN 10/30/22 183 [id number] Discharge instructions* Discharge Instructions* Joanna Leslie PA-C - 10/30/2022 4:56 PM EST General Orthopedic Discharge Instructions The following instructions have been prepared to help you when you leave the hospital. These guidelines are for the post-surgery period. Activity: Ease into normal activity as tolerated. Medications: see medication instructions. Please be sure to read and understand the information provided by your pharmacy. Ask your Pharmacist if any questions. Wound Care and Hygiene: -Wash hands before touching or changing dressings -Do Not touch incision Call Your Doctor for: -Excessive bleeding/swelling of incision -Fever with temperature above 100 oF Anesthesia Precautions: -Do Not operate any vehicle (automobile, bicycle, motorcycle) or power tools for 24 hours -Do Not drink alcoholic beverages for 24 hours -As precaution to prevent post-operative nausea and vomiting, start your diet with liquids, then progress to light foods. If tolerated, resume normal diet. * Discharge Instr - Activity* Vinh Collins DO - 11/02/2022 10:10 AM EST As tolerated * Discharge Instr - JENNIFER* Bozena Sow LPN - 11/02/2022 7:56 AM EST Continuity of Care Form Patient Name: Siobhan Haas : 1960 Admit date: 10/30/2022 Discharge date: 11/02/2022 Code Status Order: No Order Advance Directives: N Admitting Physician: Nessa Hinojosa MD PCP: Oj Maddox Discharging Nurse: Bozena Sow Discharging Hospital Unit/Room#: H-6103/[id number] A Discharging Unit Emergency Contact: Extended Emergency Contact Information Primary Emergency Contact: Luz Marina Mueller Relation: Child Secondary Emergency Contact: Dominga Purcell Relation: Sister Past Surgical History: Past Surgical History: Procedure Laterality Date ABCESS DRAINAGE Right 08/07/2020 I&D of right BKA hematoma ANKLE SURGERY Left 12/19/2021 ankle I and D with placement of wound vac - dr alyssa PARKS ABDOMINOPLASTY BREAST SURGERY 2006 and abdomin removal for excess COLONOSCOPY COLONOSCOPY EXTREMITY SURGERY Left 01/24/2022 debridement necrotizing fasciitis LLE, wound vac FOOT SURGERY Right 02/11/2019 FOOT SURGERY Right 2019 IN [place] FOOT SURGERY Right 04/08/2019 I&D right foot with antibiotic spacer FOOT SURGERY Right 04/24/2019 I&D;, external fixator FOOT SURGERY Left 08/04/2021 peroneus longus tenolysis - Dr Gamino HYSTERECTOMY 1997 INCONTINENCE SURGERY 11/15/2015 synthetic mid urethral sling,cystoscopy JOINT REPLACEMENT LIPOMA RESECTION Right 2015 shoulder ORTHOPEDIC SURGERY Right 04/01/2019 I&D with removal hardware and antibiotic spacer placed OTHER SURGICAL HISTORY Left 11/19/2021 I+D L ankle OTHER SURGICAL HISTORY 09/21/2016 INTERSTIM STAGE II, COMPLEX ANALYSIS OF NEUROSTIMULATOR OTHER SURGICAL HISTORY Right 03/07/2019 debridement of right foot OTHER SURGICAL HISTORY 10/27/2021 Irrigation and debridement of left lower extremity OTHER SURGICAL HISTORY 07/27/2020 Excision of scar tissue, neuroma RIGHT below knee amputation OTHER SURGICAL HISTORY NERVE BLOCKS FROM PAIN MANAGEMENT OTHER SURGICAL HISTORY Right 04/02/2019 R foot skin graft/flap, wound debridement/Wound vac removal OTHER SURGICAL HISTORY Right 04/22/2019 right foot I and D OTHER SURGICAL HISTORY Right 05/06/2019 Right Below Knee Amputation (CPT 57257), #2 Excisional debridement right iliac crest (wound 7 cm length, 3 cm width, 7 cm depth) TONSILLECTOMY (HISTORICAL) TOTAL KNEE ARTHROPLASTY Left 2012 ARTHROSCOPY FIRST AND KNEE REPLACED WISDOM TOOTH EXTRACTION WOUND DEBRIDEMENT Left 10/28/2021 irrigation and debridment LLE Immunization History: Immunization History Administered Date(s) Administered Moderna SARS-CoV-2 Vaccination 01/27/2021, 02/24/2021 Active Problems: Medical Problems Problem List * (Principal) Abrasion of lower leg with infection, initial encounter Left leg cellulitis Necrotizing soft tissue infection Lymphedema Stump pain (HCC) PE (pulmonary thromboembolism) (HCC) History of right below knee amputation (HCC) Overview Signed 07/16/2022 6:33 AM by Interface, Incoming Problems- [facility] Conversion Performed [place] [address] Bassett. 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) Cellulitis of lower leg Back pain Overview Signed 07/16/2022 6:33 AM by Interface, Incoming Problems- [facility] Conversion Overview: spinal stimulator electrode in the mid thoracic spine On Narcotics and fentanyl stble Tear of peroneal tendon Depressive disorder Overview Signed 07/16/2022 6:33 AM by Interface, Incoming Problems- [facility] Conversion Overview: Resume SSRI Hemorrhage of rectum and anus HTN (hypertension) Overview Signed 07/16/2022 6:33 AM by Interface, Incoming Problems- [facility] Conversion Overview: Resume HCTZ and gaurav i Resume HCTZ and gaurav i Pansystolic murmur Overview Signed 07/16/2022 6:33 AM by Interface, Incoming Problems- [facility] Conversion Comment on above: Holosystolic murmur, 1/6 Chest wall pain Asthma Asthma with acute exacerbation Overview Signed 07/16/2022 6:33 AM by Interface, Incoming Problems- [facility] Conversion Overview: IV solumedrol IV levofloxacin Duo neb Q2/4 hrs Oxygen via IA Pulmonolgy consult Resumed advair /nasal steroids/singulaire Pain from implanted hardware Obstructive sleep apnea syndrome Chronic obstructive lung disease (HCC) Morbid obesity (CMS/HCC) (HCC) Migraine headache Vitamin D deficiency Viral upper respiratory tract infection 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HCC) Swelling of left lower extremity Shortness of breath Seasonal allergies Superficial incisional surgical site infection Rheumatoid arthritis (HCC) Restless legs syndrome Anxiety Arthritis of right subtalar joint Overview Signed 07/16/2022 6:33 AM by Interface, Incoming Problems- [facility] Conversion Last Assessment & Plan: POD # 1 s/p RIGHT SUBTALAR ARTHRODESIS, TALONAVICULAR JOINT ARTHRODESIS, OBTAIN CALCANEAL AUTOGRAFT, OBTAIN TIBIAL AUTOGRAFT, FOOT HARDWARE REMOVAL, INTRAOPERATIVE CULTURES - Pt HD stable - cultures taken intra-op: few WBC no organisms seen - Pain tolerable with oral pain meds - Cont IS q1 hr upon d/c - Cont dvt prophylaxis with Ecotrin 325mg BID, adam hose and early ambulation as tolerated - Cont NWB - Cont bowel regimen - Maintain dressing - Pt seen and evaluated by PT, pt has all dme - Ortho stable, ok to d/c to home from ortho standpoint - f/u in the office as scheduled - Questions answered. Patient updated at bedside. Patient discussed with Dr. Shelton. Disposition: home with family Attention deficit disorder of adult with hyperactivity Benign essential hypertension Bronchospasm Contusion of knee Edema of lower extremity Impaired fasting glucose Acquired deformity of left toe History of tonsillectomy Chronic knee pain after total replacement of left knee joint Weakness of left lower extremity History of hysterectomy Fibromyositis Increased body mass index (BMI) Gastroesophageal reflux disease Hiatal hernia Callosity senior care (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 antibiotics Dehiscence of closure of skin, sequela Infected wound Osteomyelitis (HCC) Hematoma Cellulitis of right foot Overview Signed 07/16/2022 6:33 AM by Interface, Incoming Problems- [facility] Conversion Last Assessment & Plan: POD #1 - Pt HD stable - Pain tolerable with oral pain meds - Cont IS q1 hr - Cont dvt prophylaxis with Lovenox, adam hose, and early ambulation as tolerated - Cont NWB - ID consult, Dr. Bonner following. - Continue IV antibiotics per ID at discharge (Ancef). PICC line to be placed today. - Cont bowel regimen - Maintain dressing - Pt seen and evaluated by PT, pt has all dme - Ortho stable, okay to dc today once home health arranged for IV antibiotics and PICC placed. - [facility] for medical management, appreciate care, plan discussed with Dr. Deluca. - Questions answered. Patient updated at bedside. Patient seen and plan discussed with Dr. Shelton. Post-op pain Osteomyelitis of right foot (HCC) Overview Signed 07/16/2022 6:33 AM by Interface, Incoming Problems- [facility] Conversion SCHEDULED FOR THE SURGERY ON 02/11/2019 Open wound of right foot MSSA (methicillin susceptible Staphylococcus aureus) infection Right foot infection Hardware complicating wound infection (CMS/HCC) (HCC) Right foot pain Postoperative pain Cellulitis Isolation/Infection: No active isolations No active infections Nurse Assessment: Last Vital Signs: BP 129/75 (BP Location: Left arm, Patient Position: Lying) Pulse 106 Temp 37.8 C (100 F) (Temporal) Resp 18 Ht 1.676 m (5' 6) Wt (!) 159 kg (350 lb) SpO2 93% BMI 56.49 kg/m Last documented pain score (0-10 scale): Last Weight: Wt Readings from Last 1 Encounters: 10/30/22 (!) 159 kg (350 lb) Mental Status: JENNIFER Patient Mental Status: oriented IV Access: JENNIFER IV Access: None Nursing Mobility/ADLs: Walking Total assistance Transfer Total assistance Bathing Minimal assistance Dressing Total assistance Toileting Total assistance Feeding Independent Notch Grinder Independent Med Delivery yes Wound Care Documentation and Therapy: Wound/Incision 10/30/22 Other (comment) Pretibial Left (Active) Site Assessment Unable to assess 11/01/221999 Alexus-Wound Assessment [place] 10/30/22 2153 Odor None 11/01/221999 Drainage Amount None 11/01/221999 Primary Dressing Transparent film 11/01/221999 Secured with Kerlex 10/30/22 2212 Dressing Status Clean, dry & intact 11/01/221999 Number of days: 3 Wound/Incision 10/31/22 Incision Amputation site - above knee Anterior;Left (Active) Number of days: 1 Elimination: Continence: Bowel: yes Bladder: yes Urinary Catheter: None Colostomy/Ileostomy/Ileal Conduit: None Date of Last BM: 10/31/2022 Intake/Output Summary (Last 24 hours) at 11/02/2022 0755 Last data filed at 11/01/2022 1100 Gross per 24 hour Intake 500 ml Output -- Net 500 ml I/O last 3 completed shifts: In: 2500 (15.7 mL/kg) [P.O.:500; I.V.:2000 (12.6 mL/kg)] Out: - (0 mL/kg) Weight: 158.8 kg Safety Concerns: at risk for falls Impairments/Disabilities: none Nutrition Therapy: Current Nutrition Therapy: Oral diet: general Routes of Feeding: oral Liquids: no restrictions Daily Fluid Restriction: no Last Modified Barium Swallow with Video (Video Swallowing Test): not done Treatments at the Time of Hospital Discharge: Respiratory Treatments: na Oxygen Therapy: is not on home oxygen therapy. Ventilator: No ventilator support Rehab Therapies: physical therapy and occupational therapy Weight Bearing Status/Restrictions: no restriction Other Medical Equipment (for information only, NOT a DME order): bedside commode and Other Treatments: Wheelchair/prosthetics Patient's personal belongings (please select all that are sent with patient): none RN SIGNATURE: MANAGEMENT/SOCIAL WORK SECTION Inpatient Status Date: 10/30/22 Readmission Risk Assessment Score: Predictive Model Details Model IP RISK OF UNPLANNED READMISSION [[id number]] is not released. No score information can be retrieved Discharging to Facility/ Agency Name: [facility] Address:[address] [id number] Fax: Dialysis Facility (if applicable) Name: Address: Dialysis Schedule: Phone: Fax: It Senior Analyst/Chronometer Assembler signature: ICIAN SECTION Prognosis: excellent Condition at Discharge: stable Rehab Potential (if transferring to Rehab): excellent Recommended Labs or Other Treatments After Discharge: CBC and BMP in 3 days Physician Certification: I certify the above information and transfer of Siobhan Haas is necessary for the continuing treatment of the diagnosis listed and that she requires nursing home facility for less than 30 days. Update Admission H&P: No change in H&P PHYSICIAN SIGNATURE: documented in this [facility]01-30-2023 Emergency department Note* Micaela Rivera - 10/30/2022 4:02 PM EST PT NEEDS ULTRA SOUND FOR LABS AND IV PLACEMENT / COULD NOT OBTAIN LABS / 2 ATTEMPTS ON IV / AAW / STICKERS PLACED WITH PTS PAPERWORK. Micaela Rivera 10/30/22 [facility] [id number] History and physical note* CARMELA Ramos - 10/30/2022 3:26 PM EST Images from the original note were not included. [facility] [address] [facility] [address] Dept: [phone] Dept Siobhan Haas 1960 [id number] 10/23/2022 HISTORY OF PRESENT ILLNESS: Siobhan is a 62 y.o. female here today for evaluation of her left leg. She was discharged from the hospital on Sunday. She is taking oral Cephalexin 500 mg. They also have her on ferrous sulfate and vitamin C for anemia. She states she woke up this am and her leg is more swollen than it has been. Siobhan states the problem has been present for 10/15/22 she went to the ED and was admitted Siobhan states the problem started gradually with no injuries occurring. 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 ([facility]) 07/27/2020 Asthma Cellulitis Constipation Depression Fibromyalgia GERD (gastroesophageal reflux disease) Hx of right BKA ([facility]) ([facility]) Hypertension Morbidly obese ([facility]) ([facility]) 02/03/2019 BMI 50.52 On home O2 FAY treated with BiPAP Osteoarthritis Osteomyelitis of right foot ([facility]) SCHEDULED FOR THE SURGERY ON 02/11/2019 Seasonal allergies Shortness of breath URSULA (stress urinary incontinence, female) Vertigo Allergies Allergen Reactions Amlodipine Swelling Clonazepam Other reaction(s): Other (See Comments) made me sleep & cry Ketamine PHYSICAL EXAM: Temp 36.3 C (97.3 F) This is an age appropriate appearing female who is alert and oriented x 3. The patient appears wellnourished. Psychiatric: The patient is able to verbalize normally and seems to have a good understanding of her situation. left lower extremity examination Lymphatic System: Severe lower extremity pitting Vascular: Dorsalis pedis pulse: 2+ Posterior tibial pulse: 2+ Capillary refill is less than 3 seconds Skin/nails: Normal appearance, warm and dry Hair growth present on foot and toes Neurologic: Sensation intact to light touch throughout the foot and the ankle Muscle: Muscle strength testing: Anterior tibialis: 5/5 Posterior tibialis: 5/5 Peroneus brevis: 5/5 Peroneus longus: 5/5 Gastrocsoleus: 5/5 Very tender on posterior knee and thigh Superficial surgical wound to lower leg with no active drainage. Gait and Station: Siobhan was evaluated in a wheelchair and I did not have her stand today RADIOGRAPHIC INTERPRETATION: The following outside studies that were ordered by another care provider were reviewed and my interpretation of the these studies follows and these include: CT scan shows no signs of osteomyelitis ofthe scanned portions of the tibia or femur. A knee replacement is noted. No air in the soft tissuesis seen. REVIEW OF RELATED PREVIOUS DOCUMENTATION: Documents from the ER/Urgent care center were reviewed. LABORATORY RESULT INTERPRETATION: DIAGNOSIS: Diagnosis Plan 1. Left leg cellulitis 2. Infected wound MEDICAL DECISION MAKING: I had a discussion with Siobhan to make sure she has a good understanding of the diagnoses/issues that I think are present today and understands the plan moving forward. I had a long discussion with Siobhan again regarding the above knee amputation we discussed at her last visit with me. I explained that currently with her very recent PE and DVTs, and anemia with hemoglobin of 8.9 over the weekend, an above knee amputation carries many serious risks to her health. We discussed the option of delaying surgery in the hope that her hemoglobin level increases, as I explained that with the amputation there will be blood loss and I would feel more comfortable doing surgery if she were to get her hemoglobin up to at least 10. Siobhan was placed on iron and Vitamin C supplements from the hospital this weekend and will continue to take them. Siobhan expressed her desire to have the above knee amputation as soon as possible and acknowledged the very serious risks associated with having the surgery while having the comorbidities that she has. I again discussed with Siobhan the difficulties that could arise with attempting to walk again as the prosthesis for an above knee amputation is very heavy and requires a lot of effort to move, whichmay prove to be very difficult or next to impossible for Siobhan to achieve safely with her contralateral below knee amputation which could result in Siobhan being unable to walk again. The risks of the proposed above procedure were discussed including but not limited to the risks of reactions to medications given for surgery, the risk of blood loss, continued or worsening of the infection, damage to normal structures that can lead to long filler cigar roller machine problems of pain and/or dysfunction,the potential for non-healing wounds/incisions that may require further operative intervention in the future including more a proximal amputation. In addition potentially life threatening complications (DVT, PE, CO, stroke,and even ) at the time of surgery and after surgery were discussed. Siobhan and Siobhan's family understand that no guarantees with regard to surgical outcome can be givenand none were implied. [facility] [employer] Work Phone: [phone] History and physical note* CARMELA Ramos - 10/30/2022 3:26 PM EST Images from the original note were not included. [facility] [address] [facility] [address] Dept: [phone] Dept Siobhan Perdue Waldo 1960 [id number] 10/23/2022 HISTORY OF PRESENT ILLNESS: Siobhan is a 62 y.o. female here today for evaluation of her left leg. She was discharged from the hospital on Sunday. She is taking oral Cephalexin 500 mg. They also have her on ferrous sulfate and vitamin C for anemia. She states she woke up this am and her leg is more swollen than it has been. Siobhan states the problem has been present for 10/15/22 she went to the ED and was admitted Siobhan states the problem started gradually with no injuries occurring. 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 ([facility]) 07/27/2020 Asthma Cellulitis Constipation Depression Fibromyalgia GERD (gastroesophageal reflux disease) Hx of right BKA ([facility]) ([facility]) Hypertension Morbidly obese ([facility]) ([facility]) 02/03/2019 BMI 50.52 On home O2 FAY treated with BiPAP Osteoarthritis Osteomyelitis of right foot ([facility]) SCHEDULED FOR THE SURGERY ON 02/11/2019 Seasonal allergies Shortness of breath URSULA (stress urinary incontinence, female) Vertigo Allergies Allergen Reactions Amlodipine Swelling Clonazepam Other reaction(s): Other (See Comments) made me sleep & cry Ketamine PHYSICAL EXAM: Temp 36.3 C (97.3 F) This is an age appropriate appearing female who is alert and oriented x 3. The patient appears wellnourished. Psychiatric: The patient is able to verbalize normally and seems to have a good understanding of her situation. left lower extremity examination Lymphatic System: Severe lower extremity pitting Vascular: Dorsalis pedis pulse: 2+ Posterior tibial pulse: 2+ Capillary refill is less than 3 seconds Skin/nails: Normal appearance, warm and dry Hair growth present on foot and toes Neurologic: Sensation intact to light touch throughout the foot and the ankle Muscle: Muscle strength testing: Anterior tibialis: 5/5 Posterior tibialis: 5/5 Peroneus brevis: 5/5 Peroneus longus: 5/5 Gastrocsoleus: 5/5 Very tender on posterior knee and thigh Superficial surgical wound to lower leg with no active drainage. Gait and Station: Siobhan was evaluated in a wheelchair and I did not have her stand today RADIOGRAPHIC INTERPRETATION: The following outside studies that were ordered by another care provider were reviewed and my interpretation of the these studies follows and these include: CT scan shows no signs of osteomyelitis ofthe scanned portions of the tibia or femur. A knee replacement is noted. No air in the soft tissuesis seen. REVIEW OF RELATED PREVIOUS DOCUMENTATION: Documents from the ER/Urgent care center were reviewed. LABORATORY RESULT INTERPRETATION: DIAGNOSIS: Diagnosis Plan 1. Left leg cellulitis 2. Infected wound MEDICAL DECISION MAKING: I had a discussion with Siobhan to make sure she has a good understanding of the diagnoses/issues that I think are present today and understands the plan moving forward. I had a long discussion with Siobhan again regarding the above knee amputation we discussed at her last visit with me. I explained that currently with her very recent PE and DVTs, and anemia with hemoglobin of 8.9 over the weekend, an above knee amputation carries many serious risks to her health. We discussed the option of delaying surgery in the hope that her hemoglobin level increases, as I explained that with the amputation there will be blood loss and I would feel more comfortable doing surgery if she were to get her hemoglobin up to at least 10. Siobhan was placed on iron and Vitamin C supplements from the hospital this weekend and will continue to take them. Siobhan expressed her desire to have the above knee amputation as soon as possible and acknowledged the very serious risks associated with having the surgery while having the comorbidities that she has. I again discussed with Siobhan the difficulties that could arise with attempting to walk again as the prosthesis for an above knee amputation is very heavy and requires a lot of effort to move, whichmay prove to be very difficult or next to impossible for Siobhan to achieve safely with her contralateral below knee amputation which could result in Siobhan being unable to walk again. The risks of the proposed above procedure were discussed including but not limited to the risks of reactions to medications given for surgery, the risk of blood loss, continued or worsening of the infection, damage to normal structures that can lead to long filler cigar roller machine problems of pain and/or dysfunction,the potential for non-healing wounds/incisions that may require further operative intervention in the future including more a proximal amputation. In addition potentially life threatening complications (DVT, PE, CO, stroke,and even ) at the time of surgery and after surgery were discussed. Siobhan and Siobhan's family understand that no guarantees with regard to surgical outcome can be givenand none were implied. documented in this [facility]01-30-2023 Consult note* NELSON Doll - 10/30/2022 3:06 PM ESTAssociated Order(s): IP CONSULT TO ORTHOPAEDIC SURGERY Images from the original note were not included. Ortho H&P/Consult Patient: Siobhan Haas Date of : 1960 Acct: [id number] PCP: Oj Maddox Date of Admission: (Not on file) Date of Service: Pt seen/examined on 10/30/2022 Chief Complaint: Left leg swelling History Of Present Illness: This is a 62 y.o. female with past medical history of bilateral pulmonary emboli (08/2022, currently on Eliquis) who presents to [facility] today (10/30/2022) withchief complaint of left leg swelling. The patient reports that her left leg symptoms began in 12/2021 following a diagnosis of necrotizingfasciitis. The patient reports that she underwent surgery for necrotizing fasciitis in 12/2021, and since the surgery, she has had difficulties with left lower extremity swelling. The patient has beencontinuing her care with Dr. Bassett, and most recently saw Dr. Bassett on 10/23/2022. At that time, discussed with patient undergoing left above-knee amputation on 11/07/2022. The patient states that typically, her left lower extremity swelling reduces after a period of lying supine. However, the patient reports that she awoke this morning, and had increased left lower extremity swelling/erythema. The patient called into the office today due to increased swelling, and Dr. Bassett's MELISSA, [place], advised the patient to go to the emergency department today to prepare for surgery tomorrow (10/31/2022). The patient has been taking oral Keflex 500 mg since discharge from the hospital approximately 2 weeks ago. The patient reports that she is prescribed Keflex 500 mg 4 times daily, however has only been taking the Keflex 2-3 times daily. Patient denies any fevers, chills, or malaise. Patient endorses serosanguineous drainage from the left lower extremity incision. Patient denies any purulent drainage from the left lower extremity. She endorses pain into the left lower extremity distal to the knee Of note, patient has previous right below-knee amputation from 05/2020. Tobacco use: Denies Alcohol use: Denies Illicit substance use: Denies Ambulation status: Walker, right lower extremity prosthetic Anticoagulation use: Eliquis Hx from chart and Pt. 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 ([facility]) 07/27/2020 Asthma Cellulitis Constipation Depression Fibromyalgia GERD (gastroesophageal reflux disease) Hx of right BKA ([facility]) ([facility]) Hypertension Morbidly obese ([facility]) ([facility]) 02/03/2019 BMI 50.52 On home O2 FAY treated with BiPAP Osteoarthritis Osteomyelitis of right foot ([facility]) SCHEDULED FOR THE SURGERY ON 02/11/2019 Seasonal allergies Shortness of breath URSULA (stress urinary incontinence, female) Vertigo Past Surgical History: Past Surgical History: Procedure Laterality Date ABCESS DRAINAGE Right 08/07/2020 I&D of right BKA hematoma ANKLE SURGERY Left 12/19/2021 ankle I and D with placement of wound vac - dr alyssa PARKS ABDOMINOPLASTY BREAST SURGERY 2006 and abdomin removal for excess COLONOSCOPY COLONOSCOPY EXTREMITY SURGERY Left 01/24/2022 debridement necrotizing fasciitis LLE, wound vac FOOT SURGERY Right 02/11/2019 FOOT SURGERY Right [place] FOOT SURGERY Right 04/08/2019 I&D right foot with antibiotic spacer FOOT SURGERY Right 04/24/2019 I&D;, external fixator FOOT SURGERY Left 08/04/2021 peroneus longus tenolysis - Dr Gamino HYSTERECTOMY 1997 INCONTINENCE SURGERY 11/15/2015 synthetic mid urethral sling,cystoscopy JOINT REPLACEMENT LIPOMA RESECTION Right 2015 shoulder ORTHOPEDIC SURGERY Right 04/01/2019 I&D with removal hardware and antibiotic spacer placed OTHER SURGICAL HISTORY Left 11/19/2021 I+D L ankle OTHER SURGICAL HISTORY 09/21/2016 INTERSTIM STAGE II, COMPLEX ANALYSIS OF NEUROSTIMULATOR OTHER SURGICAL HISTORY Right 03/07/2019 debridement of right foot OTHER SURGICAL HISTORY 10/27/2021 Irrigation and debridement of left lower extremity OTHER SURGICAL HISTORY 07/27/2020 Excision of scar tissue, neuroma RIGHT below knee amputation OTHER SURGICAL HISTORY NERVE BLOCKS FROM PAIN MANAGEMENT OTHER SURGICAL HISTORY Right 04/02/2019 R foot skin graft/flap, wound debridement/Wound vac removal OTHER SURGICAL HISTORY Right 04/22/2019 right foot I and D OTHER SURGICAL HISTORY Right 05/06/2019 Right Below Knee Amputation (CPT 65280), #2 Excisional debridement right iliac crest (wound 7 cm length, 3 cm width, 7 cm depth) TONSILLECTOMY (HISTORICAL) TOTAL KNEE ARTHROPLASTY Left 2012 ARTHROSCOPY FIRST AND KNEE REPLACED WISDOM TOOTH EXTRACTION WOUND DEBRIDEMENT Left 10/28/2021 irrigation and debridment LLE Home Medications: Prior to Admission medications Medication Sig Start Date End Date Taking? Authorizing Provider albuterol (2.5 MG/3ML) 0.083% nebulizer solution 2.5 mg. 03/23/22 Historical Provider, albuterol 108 (90 Base) MCG/ACT inhaler INHALE 2 PUFFS FOUR TIMES DAILY NEEDED FOR WHEEZING 03/23/22 Historical Provider, albuterol 108 (90 Base) MCG/ACT inhaler INHALE 2 PUFFS PO Q 4 H PRN 08/11/16 Historical Provider, amitriptyline (Elavil) 100 MG tablet 08/09/22 Historical Provider, budesonide (Pulmicort) 0.25 MG/2ML nebulizer solution 12/23/21 Historical Provider, budesonide-formoterol (Symbicort) 160-4.5 MCG/ACT inhaler Inhale 2 puffs in the morning and 2 puffsin the evening. Historical Provider, cephalexin (Keflex) 500 MG capsule take 1 capsule by mouth every 8 hours --TAKE ONE DOSE TONIGHT, AN... (REFER TO PRESCRIPTION NOTES). 09/05/22 Historical Provider, cholecalciferol (Vitamin D-3) 1.25 MG (90068 UT) capsule Take by mouth 1 (one) time per week. 03/23/22 Historical Provider, citalopram (CeleXA) 40 MG tablet Take 40 mg by mouth in the morning. 03/23/22 Historical Provider, cyclobenzaprine (Flexeril) 10 MG tablet Take 10 mg by mouth Nightly. 07/19/15 Historical Provider, Eliquis 5 MG tablet take 2 tablets by mouth TONIGHT, THEN 2 TABLETS TWICE A DAY FOR 5... (REFER TO PRESCRIPTION NOTES). 09/05/22 Historical Provider, famotidine (Pepcid) 20 MG tablet Take 20 mg by mouth in the morning and 20 mg before bedtime. 03/23/22 Historical Provider, fluticasone (Flonase) 50 MCG/ACT nasal spray 1 spray. Historical Provider, furosemide (Lasix) 40 MG tablet Take 1 tablet by mouth in the morning. 03/06/22 Historical Provider, hydrocortisone 2.5 % cream APPLY TO AFFECTED AREA TWO TIMES A DAY 02/01/22 02/01/23 Vinh Collins DO linezolid (Zyvox) 600 MG tablet TAKE 1 TABLET BY MOUTH EVERY 12 HOURS UNTIL GONE 02/01/22 02/01/23 Vinh Collins DO omeprazole (PriLOSEC) [address] capsule Take 1 capsule by mouth in the morning. 07/12/15 Historical Provider, pregabalin (Lyrica) 50 MG capsule TAKE 1 CAPSULE BY MOUTH TWICE DAILY FOR 28 DAYS 04/10/22 Historical Provider, spironolactone (Aldactone) 25 MG tablet Take 25 mg by mouth in the morning. Historical Provider, tiotropium (Spiriva) [address] 18 mcg into inhaler and inhale in the morning.Historical Provider, valsartan (Diovan) 320 MG tablet 320 mg. 03/23/22 09/19/22 Historical Provider, Current Hospital Medications: No current facility-administered medications for this encounter. Current Outpatient Medications: albuterol (2.5 MG/3ML) 0.083% nebulizer solution, 2.5 mg., Disp: , Rfl: albuterol 108 (90 Base) MCG/ACT inhaler, INHALE 2 PUFFS FOUR TIMES DAILY NEEDED FOR WHEEZING, Disp: , Rfl: albuterol 108 (90 Base) MCG/ACT inhaler, INHALE 2 PUFFS PO Q 4 H PRN, Disp: , Rfl: amitriptyline (Elavil) 100 MG tablet, , Disp: , Rfl: budesonide (Pulmicort) 0.25 MG/2ML nebulizer solution, , Disp: , Rfl: budesonide-formoterol (Symbicort) 160-4.5 MCG/ACT inhaler, Inhale 2 puffs in the morning and 2 puffs in the evening., Disp: , Rfl: cephalexin (Keflex) 500 MG capsule, take 1 capsule by mouth every 8 hours --TAKE ONE DOSE TONIGHT, AN... (REFER TO PRESCRIPTION NOTES)., Disp: , Rfl: cholecalciferol (Vitamin D-3) 1.25 MG (93471 UT) capsule, Take by mouth 1 (one) time per week., Disp: , Rfl: citalopram (CeleXA) 40 MG tablet, Take 40 mg by mouth in the morning., Disp: , Rfl: cyclobenzaprine (Flexeril) 10 MG tablet, Take 10 mg by mouth Nightly., Disp: , Rfl: Eliquis 5 MG tablet, take 2 tablets by mouth TONIGHT, THEN 2 TABLETS TWICE A DAY FOR 5... (REFER TOPRESCRIPTION NOTES)., Disp: , Rfl: famotidine (Pepcid) 20 MG tablet, Take 20 mg by mouth in the morning and 20 mg before bedtime., Disp: , Rfl: fluticasone (Flonase) 50 MCG/ACT nasal spray, 1 spray., Disp: , Rfl: furosemide (Lasix) 40 MG tablet, Take 1 tablet by mouth in the morning., Disp: , Rfl: hydrocortisone 2.5 % cream, APPLY TO AFFECTED AREA TWO TIMES A DAY, Disp: 30 g, Rfl: 0 linezolid (Zyvox) 600 MG tablet, TAKE 1 TABLET BY MOUTH EVERY 12 HOURS UNTIL GONE, Disp: 10 tablet,Rfl: 0 omeprazole (PriLOSEC) [address] capsule, Take 1 capsule by mouth in the morning., Disp: , Rfl: pregabalin (Lyrica) 50 MG capsule, TAKE 1 CAPSULE BY MOUTH TWICE DAILY FOR 28 DAYS, Disp: , Rfl: spironolactone (Aldactone) 25 MG tablet, Take 25 mg by mouth in the morning., Disp: , Rfl: tiotropium (Spiriva) 18 MCG inhalation capsule, Place 18 mcg into inhaler and inhale in the morning., Disp: , Rfl: valsartan (Diovan) 320 MG tablet, 320 mg., Disp: , Rfl: Allergies: Amlodipine, Clonazepam, Ketamine, Lisinopril, and Vancomycin Social History: Social History Socioeconomic History Marital status: Spouse name: Not on file Number of children: Not on file Years of education: Not on file Highest education level: Not on file Occupational History Not on file Tobacco Use Smoking status: Former Packs/day: 0.15 Types: Cigarettes Quit date: 10/01/1981 Years since quittin.1 Smokeless tobacco: Never Substance and Sexual Activity Alcohol use: Yes Alcohol/week: 0.0 standard drinks Drug use: No Sexual activity: Not on file Other Topics Concern Not on file Social History Narrative Has been in rehab facility in [place] Lives alone, son close Friends help Social Determinants of Health Financial Resource Strain: Not on file Food Insecurity: Not on file Transportation Needs: Not on file Physical Activity: Not on file Stress: Not on file Social Connections: Not on file Intimate Partner Violence: Not on file Housing Stability: Not on file Family History: Family History Problem Relation Name Age of Onset Pancreatic cancer Mother Pancreatic cancer Father Further Family History is noncontributory to this injury. REVIEW OF SYSTEMS: Review of Systems - General ROS: negative for - chills, fatigue, fever, malaise or night sweats Psychological ROS: negative Ophthalmic ROS: negative ENT ROS: negative for - headaches or sore throat Hematological and Lymphatic ROS: Positive for bilateral PE, 08/2022 Respiratory ROS: no cough, shortness of breath, or wheezing Cardiovascular ROS: no chest pain or dyspnea on exertion Gastrointestinal ROS: negative Musculoskeletal ROS: See HPI Neurological ROS: negative for - bowel and bladder control changes, gait disturbance or numbness/tingling All other systems reviewed and are negative PHYSICAL EXAM: BP 124/79 Pulse 85 Temp 36.7 C (98 F) (Temporal) Resp 18 Ht 1.676 m (5' 6) Wt (!) 159 kg(350 lb) SpO2 96% BMI 56.49 kg/m GENERAL APPEARANCE: Awake and oriented x4. No acute distress, except appropriate to injury. MOOD AND AFFECT: Calm appropriate to situation GAIT AND STATION: Patient is in wheelchair COORDINATION and BALANCE: Patient is grossly coordinated Lymphadenopathy: none on examination of the affected extremity(s) Right Upper Extremity: -No obvious pain or deformity to inspection with normal joint range of motion, stability, and muscle strength except noted below -No TTP over clavicle, shoulder, humerus, elbow, forearm, wrist, hand, or fingers -TTP: nontender throughout extremity -Radial pulse palpable -SILT in radial/median/ ulnar nerve distributions -Motor + AIN/PIN/ulnar nerve functions -No Lymphedema -Skin intact except where noted below -Painless pROM at shoulder/elbow/wrist Left Upper Extremity: -No obvious pain or deformity to inspection with normal joint range of motion, stability, and muscle strength except noted below -No TTP over clavicle, shoulder, humerus, elbow, forearm, wrist, hand, or fingers -TTP: nontender throughout extremity -Radial pulse palpable -SILT in radial/median/ ulnar nerve distributions -Motor + AIN/PIN/ulnar nerve functions -No Lymphedema -Skin intact except where noted below -Painless pROM at shoulder/elbow/wrist Left lower Extremity: -No obvious pain or deformity to inspection with normal joint range of motion, stability, and muscle strength except noted below -No TTP over pelvis, hip, thigh, knee, lateral mal, medial mal, calc, midfoot, forefoot -TTP: tibia -Pulse: DP Palpable, -SILT in the superficial peroneal, deep peroneal, tibial, sural, saphenous nerve distributions -Motor function of quad, tibialis anterior, extensor hallucis longus, and gactrocsoleus complex intact -Skin intact except where noted below -Painless pROM at hip/knee/ankle Previous surgical incision over the anterior and medial tibia. There is macerated skin within the surgical incision with dried serosanguineous drainage. No open wounds that probe deep to bone. No appreciable drainage. There is surrounding cellulitis about the left lower extremity incision that extends to the level of the knee approximately. There is significant induration throughout the left lower extremity. Pitting edema circumferentially throughout the left lower extremity. Left anterior knee Left anterior tibia/fibula Left anterior tibia/fibula Left medial tibia Left medial tibia Right Lower Extremity: -No obvious pain or deformity to inspection with normal joint range of motion, stability, and muscle strength except noted below -No TTP over pelvis, hip, thigh, knee, tibia -TTP: Nontender throughout extremity -Pulse: Stump is warm and well-perfused -SILT intact to stump -Motor function of quad intact -No Lymphedema -Skin intact except where noted below -Painless pROM at hip/knee Evidence of previous right below-knee amputation. Surgical incision appears to be clean/dry/intact without evidence of wound breakdown or dehiscence. Right distal tibia/fibula Right medial tibia Labs: CBC: No results found for: WBC, RBC BMP:No results found for: GLUCOSE, SODIUM, POTASSIUM, CHLORIDE, CO2, BUN, CREATININE, CALCIUM PT/INR: No results found for: PT, INR, APTT Type and Screen: No results found for: RH, LABANTI CRP: No results found for: CRP ESR: No results found for: SEDRATE HgBA1c: No components found for: LABA1C The above labs were reviewed by me. Radiology: The below images were independently reviewed and interpreted with pertinent findings noted below. XR: Left femur x-ray (10/30/2022): Pending Left tibia/fibula x-ray (10/30/2022): Pending Radiology reports reviewed. ASSESSMENT: 62 y.o. female with left tibia surgical site infection in the setting of previous hardware placed to the left knee PLAN: -D/w Dr. Bassett -Plan for OR 10/31/2022 for left above-knee amputation with possible wound vacuum application -NPO at midnight -Clearance/optimization per medicine, a message was sent to Dr. Nessa Hinojosa, who plans to discuss optimization status in his note following evaluation -Consented I had a long discussion with the patient regarding the surgical treatment option of left above-kneeamputation with possible wound vacuum application. The risks and benefits of surgery were discussedwith the patient at length. Patient conveyed understanding. All questions were answered to the patient's satisfaction. The patient states that if a transfusion of blood is recommended for lifesaving measures , the patient is willing to have a blood transfusion. The patient was also advised on other risks of surgery, including: Blood loss from arteries or veins requiring tying off or repairing of the vessels. Transfusions of blood, which have a risk of allergic transfusion reactions and viral illnesses, including hepatitis and HIV. Infection, including wound or bone infections, with subsequent need for antibiotics or future surgical procedures. The need for further surgery. Damage to nearby anatomic structures. Risks associated with anesthesia -Add pending -Labs in process -Ice -WBAT LLE; up with assist -Admit to medicine -Pain control and medical management per medicine -Please hold DVT prophylaxis in anticipation of OR -Please comment on clearance in case of OR, page ortho pgr [phone] with clearance status -X-rays pending -Orthopaedic surgery will follow. 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 [facility]01-30-2023 Emergency department Note* Nicci Morris RN - 10/30/2022 1:17 PM EST Bed: 15 Expected date: Expected time: Means of arrival: Comments: triage Nicci Morris RN 10/30/22 1672 [facility]01-30-2023 Physician Emergency department Note* Himanshu Schaefer MD - 10/30/2022 1:17 PM EST EMERGENCY DEPARTMENT ENCOUNTER Pt Name: Siobhan Haas Birthdate 1960 Date of evaluation: 10/30/2022 ED Provider: Himanshu Schaefer MD CHIEF COMPLAINT Chief Complaint Patient presents with Leg Swelling L Leg swelling. Amputation of L Leg scheduled for tomorrow per surgeon. HISTORY OF PRESENT ILLNESS (Location/Symptom, Timing/Onset, Context/Setting, Quality, Duration, Modifying Factors, Severity) Note limiting factors. I wore appropriate PPE for the entirety of this encounter. HPI Siobhan Haas is a 62 y.o. female who presents to the emergency department with left lower extremity swelling and discomfort, history of necrotizing fasciitis, has history of AKA on the right, sent in from Dr. Bassett to plan for AKA on the left tomorrow Nursing Notes were reviewed. Limitations to history: None Outside historians: Family REVIEW OF SYSTEMS Review of Systems Pertinent positives and negatives as per HPI PAST MEDICAL HISTORY 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 ([facility]) 07/27/2020 Asthma Cellulitis Constipation Depression Fibromyalgia GERD (gastroesophageal reflux disease) Hx of right BKA ([facility]) ([facility]) Hypertension Morbidly obese ([facility]) ([facility]) 02/03/2019 BMI 50.52 On home O2 FAY treated with BiPAP Osteoarthritis Osteomyelitis of right foot ([facility]) SCHEDULED FOR THE SURGERY ON 02/11/2019 Seasonal allergies Shortness of breath URSULA (stress urinary incontinence, female) Vertigo SURGICAL HISTORY Past Surgical History: Procedure Laterality Date ABCESS DRAINAGE Right 08/07/2020 I&D of right BKA hematoma ANKLE SURGERY Left 12/19/2021 ankle I and D with placement of wound vac - dr alyssa PARKS ABDOMINOPLASTY BREAST SURGERY 2006 and abdomin removal for excess COLONOSCOPY COLONOSCOPY EXTREMITY SURGERY Left 01/24/2022 debridement necrotizing fasciitis LLE, wound vac FOOT SURGERY Right 02/11/2019 FOOT SURGERY Right 2019 [place] FOOT SURGERY Right 04/08/2019 I&D right foot with antibiotic spacer FOOT SURGERY Right 04/24/2019 I&D;, external fixator FOOT SURGERY Left 08/04/2021 peroneus longus tenolysis - Dr Gamino HYSTERECTOMY 1997 INCONTINENCE SURGERY 11/15/2015 synthetic mid urethral sling,cystoscopy JOINT REPLACEMENT LIPOMA RESECTION Right 2015 shoulder ORTHOPEDIC SURGERY Right 04/01/2019 I&D with removal hardware and antibiotic spacer placed OTHER SURGICAL HISTORY Left 11/19/2021 I+D L ankle OTHER SURGICAL HISTORY 09/21/2016 INTERSTIM STAGE II, COMPLEX ANALYSIS OF NEUROSTIMULATOR OTHER SURGICAL HISTORY Right 03/07/2019 debridement of right foot OTHER SURGICAL HISTORY 10/27/2021 Irrigation and debridement of left lower extremity OTHER SURGICAL HISTORY 07/27/2020 Excision of scar tissue, neuroma RIGHT below knee amputation OTHER SURGICAL HISTORY NERVE BLOCKS FROM PAIN MANAGEMENT OTHER SURGICAL HISTORY Right 04/02/2019 R foot skin graft/flap, wound debridement/Wound vac removal OTHER SURGICAL HISTORY Right 04/22/2019 right foot I and D OTHER SURGICAL HISTORY Right 05/06/2019 Right Below Knee Amputation (CPT 10377), #2 Excisional debridement right iliac crest (wound 7 cm length, 3 cm width, 7 cm depth) TONSILLECTOMY (HISTORICAL) TOTAL KNEE ARTHROPLASTY Left 2012 ARTHROSCOPY FIRST AND KNEE REPLACED WISDOM TOOTH EXTRACTION WOUND DEBRIDEMENT Left 10/28/2021 irrigation and debridment LLE CURRENT MEDICATIONS Current Discharge Medication List CONTINUE these medications which have NOT CHANGED Details albuterol (2.5 MG/3ML) 0.083% nebulizer solution 2.5 mg. !! albuterol 108 (90 Base) MCG/ACT inhaler INHALE 2 PUFFS FOUR TIMES DAILY NEEDED FOR WHEEZING !! albuterol 108 (90 Base) MCG/ACT inhaler INHALE 2 PUFFS PO Q 4 H PRN amitriptyline (Elavil) 100 MG tablet budesonide (Pulmicort) 0.25 MG/2ML nebulizer solution budesonide-formoterol (Symbicort) 160-4.5 MCG/ACT inhaler Inhale 2 puffs in the morning and 2 puffsin the evening. cholecalciferol (Vitamin D-3) 1.25 MG (50972 UT) capsule Take by mouth 1 (one) time per week. citalopram (CeleXA) 40 MG tablet Take 40 mg by mouth in the morning. cyclobenzaprine (Flexeril) 10 MG tablet Take 10 mg by mouth Nightly. Eliquis 5 MG tablet take 2 tablets by mouth TONIGHT, THEN 2 TABLETS TWICE A DAY FOR 5... (REFER TO PRESCRIPTION NOTES). famotidine (Pepcid) 20 MG tablet Take 20 mg by mouth in the morning and 20 mg before bedtime. fluticasone (Flonase) 50 MCG/ACT nasal spray 1 spray. furosemide (Lasix) 40 MG tablet Take 1 tablet by mouth in the morning. omeprazole (PriLOSEC) [address] capsule Take 1 capsule by mouth in the morning. pregabalin (Lyrica) 50 MG capsule TAKE 1 CAPSULE BY MOUTH TWICE DAILY FOR 28 DAYS spironolactone (Aldactone) 25 MG tablet Take 25 mg by mouth in the morning. tiotropium (Spiriva) [address] 18 mcg into inhaler and inhale in the morning. valsartan (Diovan) 320 MG tablet 320 mg. !! - Potential duplicate medications found. Please discuss with provider. ALLERGIES Amlodipine, Clonazepam, Ketamine, Lisinopril, and Vancomycin FAMILY HISTORY Family History Problem Relation Name Age of Onset Pancreatic cancer Mother Pancreatic cancer Father SOCIAL HISTORY Social History Socioeconomic History Marital status: Tobacco Use Smoking status: Former Packs/day: 0.15 Types: Cigarettes Quit date: 10/01/1981 Years since quittin.1 Smokeless tobacco: Never Substance and Sexual Activity Alcohol use: Yes Alcohol/week: 0.0 standard drinks Drug use: No Social History Narrative Has been in rehab facility in [place] Lives alone, son close Friends help SCREENINGS PHYSICAL EXAM ED Triage Vitals [10/30/22 1402] Temp Heart Rate Resp BP 36.7 C (98 F) 85 18 124/79 SpO2 Temp Source Heart Rate Source Patient Position 96 % Temporal Monitor -- BP Location FiO2 (%) -- -- Physical Exam Infection erythema warmth induration and purulent drainage left lower extremity, pictures seen in media tab DIAGNOSTIC RESULTS RADIOLOGY (Per Emergency Physician): Interpretation per the Radiologist below, if available at the time of this note: Vascular US lower extremity arterial PVR Final Result XR tibia fibula 2 views left Final Result FINDINGS/IMPRESSION: Limitations: Somewhat limited by positioning and underpenetration. Soft tissues also incompletely imaged. Left total knee arthroplasty in place. Curvilinear calcific density adjacent to the medial left tibial plateau unchanged from prior CT. Chronic appearing areas of periostitis involving portions of the fibula and tibia. No radiographic evidence of acute fracture or acute erosive changes. Diffuse subcutaneous edema. Soft tissue/dermal irregularity overlying the proximal lateral left ankle could reflect soft tissue wound with subcutaneous gas felt to be less likely. Report Dictated on Electronically Signed By: Jaylan Ferrara Electronically Signed Date/Time: 10/30/2022 5:17 PM EST XR femur left 2+ views Final Result FINDINGS/IMPRESSION: Limitations: Limited by positioning and body habitus Left total knee arthroplasty prosthesis appears well seated without evidence of complication. Curvilinear calcific density adjacent to the left medial tibial plateau also present on prior CT and likely remote in etiology. Osteoarthritis involving the left hip. No subcutaneous gas within the visualized subcutaneous soft tissues. Report Dictated on Electronically Signed By: Jaylan Ferrara Electronically Signed Date/Time: 10/30/2022 5:03 PM EST XR chest 1 view Final Result No acute cardiopulmonary process identified. Mild vascular congestion without evidence of pulmonary edema. Correlate with volume status. Report Dictated on Electronically Signed By: Joce Krishnamurthy Electronically Signed Date/Time: 10/30/2022 4:42 PM EST LABS: Labs Reviewed CBC WITH AUTO DIFFERENTIAL - Abnormal Result Value Auto WBC 6.9 RBC 4.47 Hemoglobin 10.6 (*) Hematocrit 33.9 (*) MCV 75.8 (*) MCH 23.7 (*) MCHC 31.2 (*) RDW 23.1 (*) Platelets 398 MPV 7.6 nRBC 0.1 Neutrophils Relative 64.4 Lymphocytes Relative 22.7 Monocytes Relative 10.1 (*) Eosinophils Relative 1.8 Basophils Relative 1.0 Neutrophils Absolute 4.4 Lymphocytes Absolute 1.6 Monocytes Absolute 0.7 Eosinophils Absolute 0.1 Basophils Absolute 0.1 SEDIMENTATION RATE, AUTOMATED - Abnormal Sed Rate 74 (*) C-REACTIVE PROTEIN - Abnormal C REACTIVE PROTEIN 11.6 (*) HEMOGLOBIN AND HEMATOCRIT, BLOOD - Abnormal Hemoglobin 10.3 (*) Hematocrit 32.4 (*) CBC WITH AUTO DIFFERENTIAL - Abnormal Auto WBC 15.7 (*) RBC 3.97 Hemoglobin 9.8 (*) Hematocrit 31.8 (*) MCV 80.1 MCH 24.8 (*) MCHC 30.9 (*) RDW 23.7 (*) Platelets 337 MPV 7.8 nRBC 0.0 Neutrophils Relative 93.3 (*) Lymphocytes Relative 3.6 (*) Monocytes Relative 2.8 Eosinophils Relative 0.0 (*) Basophils Relative 0.3 Neutrophils Absolute 14.6 (*) Lymphocytes Absolute 0.6 (*) Monocytes Absolute 0.4 Eosinophils Absolute 0.0 Basophils Absolute 0.0 BASIC METABOLIC PANEL - Abnormal SODIUM 134 (*) POTASSIUM 4.4 CHLORIDE 105 CARBON DIOXIDE 22 UREA NITROGEN 13 CREATININE 0.73 GLUCOSE 266 (*) CALCIUM 8.1 (*) ANION GAP 8 eGFR >90.0 BASIC METABOLIC PANEL - Normal SODIUM 137 POTASSIUM 3.9 CHLORIDE 102 CARBON DIOXIDE 28 UREA NITROGEN 15 CREATININE 0.74 GLUCOSE 95 CALCIUM 9.0 ANION GAP 7 eGFR >90.0 PROTHROMBIN TIME - Normal PROTHROMBIN TIME 10.3 INR 1.0 APTT - Normal APTT 29.4 Narrative: NOTE: The therapeutic time for Heparin anticoagulation, based on Xa activity inhibition, is an APTTof 46-80 seconds. BLOOD TYPE AND SCREEN GEL ABO Grouping O Antibody Screen NEG Rh Type POS BASIC METABOLIC PANEL PREPARE RBC PRODUCT CODE B3788U01 Unit Number [id number] Unit ABO O Unit RH POS Crossmatch interpretation COMP Dispense Status Transfused Blood Expiration Date Product Blood Type 5100 Unit Volume 300 PRODUCT CODE [id number] Unit Number [id number] Unit ABO O Unit RH POS Crossmatch interpretation COMP Dispense Status Transfused Blood Expiration Date Product Blood Type 5100 Unit Volume 300 TISSUE EXAM All other labs were within normal range or not returned as of this dictation. EMERGENCY DEPARTMENT COURSE and DIFFERENTIAL DIAGNOSIS/MDM: Vitals: Vitals: 11/01/22 0524 11/01/22 0618 11/01/22 0629 11/01/22 06 BP: 118/79 137/76 98/61 (!) 129/98 BP Location: Left arm Patient Position: Lying Pulse: (!) 119 (!) 112 (!) 113 (!) 113 Resp: 20 16 16 Temp: 36.1 C (96.9 F) 36.3 C (97.3 F) 37.1 C (98.7 F) TempSrc: Temporal Temporal Temporal SpO2: 94% 95% 94% 95% Weight: Height: Medications sodium chloride 0.9 % infusion ( IntraVENous Stopped 10/31/221927) LORazepam (Ativan) tablet 0.5 mg ( Oral MAR Unhold 10/31/222221) ceFAZolin in sodium chloride 0.9% (Ancef) IVPB 3,000 mg (0 mg IntraVENous Stopped 11/01/22 0248) albuterol (2.5 MG/3ML) 0.083% nebulizer solution 2.5 mg (has no administration in time range) amitriptyline (Elavil) tablet 100 mg (100 mg Oral Given 10/31/222300) mometasone-formoterol (Dulera 100) 100-5 MCG/ACT inhaler 2 puff (2 puffs Inhalation Not Given 10/31/222229) citalopram (CeleXA) tablet 40 mg (has no administration in time range) acetaminophen (Tylenol) tablet 650 mg (650 mg Oral Given 11/01/22 0540) methocarbamol (Robaxin) tablet 1,000 mg (has no administration in time range) HYDROmorphone (Dilaudid) injection 0.25 mg ( IntraVENous See Alternative 11/01/22 0038) Or HYDROmorphone (Dilaudid) injection 0.5 mg (0.5 mg IntraVENous Given 11/01/2237) naloxone (Narcan) 0.4 mg in 0.9% sodium chloride 10 mL syringe (has no administration in time range) oxyCODONE (Roxicodone) immediate release tablet 5 mg ( Oral See Alternative 11/01/22642) Or oxyCODONE (Roxicodone) immediate release tablet 10 mg (10 mg Oral Given 11/01/22642) Lidocaine 4 % patch 1 patch (has no administration in time range) gabapentin (Neurontin) capsule 300 mg (300 mg Oral Not Given 10/31/222229) midazolam (Versed) 2 MG/2ML injection - Pyxis ADS Override Pull ( Override pull for Anesthesia 10/31/22 160) LORazepam (Ativan) injection 0.5 mg (0.5 mg IntraVENous Given 10/31/222049) MDM elements: The patient presented with chief complaint of left lower extremity worsening infection, history of necrotizing fasciitis, sent in for admission from Dr. Bassett, has been on Keflex at home. The differential diagnosis associated with this patient's presentation includes recurrent necrotizing fasciitis, infection. Our workup consisted of ordering/reviewing: Preoperative labs, orthopedic consultation, admission to medicine Dr. Hinojosa. The patient will be Admitted. Patient is in agreement with this plan. PROCEDURES: Unless otherwise noted below, none Procedures FINAL IMPRESSION 1. Superficial incisional surgical site infection 2. Abrasion of lower leg with infection, initial encounter 3. Cellulitis of left lower limb DISPOSITION Admit 10/30/2022 02:48:44 PM PATIENT REFERRED TO: Rusty Bassett MD [address] [place] [address] [place] [address] Schedule an appointment as soon as possible for a visit in 2 week(s) post op DISCHARGE MEDICATIONS: Current Discharge Medication List (Comment: Please note this report has been produced using speech recognition software and may contain errors related to that system including errors in grammar, punctuation, and spelling, as well as words and phrases that may be inappropriate. If there are any questions or concerns please feel freeto contact the dictating provider for clarification.) Himanshu Schaefer MD (electronically signed) Emergency Medicine Provider Himanshu Schaefer MD 11/01/22 0720 [facility] [facility] [id number] Telephone encounter Note* Telephone Encounter - CARMELA Ramos - 10/30/2022 10:31 AM EST Email received in clinical email from patient this morning with complaint of increased swelling overnight with tightness of the leg and increased discomfort. I called and spoke with patient after discussing with Dr. Bassett, and advised her if she would like to have her surgery done tomorrow, she would need to go to the ER and get admitted today so that she can be ready for surgery tomorrow. Patient voiced understanding and is going to go to ER today. [facility] Phone: [phone] Miscellaneous Notes* Telephone Encounter - CARMELA Ramos - 10/30/2022 10:31 AM EST Email received in clinical email from patient this morning with complaint of increased swelling overnight with tightness of the leg and increased discomfort. I called and spoke with patient after discussing with Dr. Bassett, and advised her if she would like to have her surgery done tomorrow, she would need to go to the ER and get admitted today so that she can be ready for surgery tomorrow. Patient voiced understanding and is going to go to ER today. documented in this [facility]SGen[facility] [id number] History of Present illness Narrative* Rusty Bassett MD - 10/23/2022 2:00 PM EST Images from the original note were not included. [facility] [address] [facility] [address] Dept: [phone] Dept Siobhan Haas 1960 [id number] 10/23/2022 HISTORY OF PRESENT ILLNESS: Siobhan is a 62 y.o. female here today for evaluation of her left leg. She was discharged from the hospital on Sunday. She is taking oral Cephalexin 500 mg. They also have her on ferrous sulfate and vitamin C for anemia. She states she woke up this am and her leg is more swollen than it has been. Siobhan states the problem has been present for 10/15/22 she went to the ED and was admitted Siobhan states the problem started gradually with no injuries occurring. Woke up with increased legswelling 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 ([facility]) 07/27/2020 Asthma Cellulitis Constipation Depression Fibromyalgia GERD (gastroesophageal reflux disease) Hx of right BKA ([facility]) ([facility]) Hypertension Morbidly obese ([facility]) ([facility]) 02/03/2019 BMI 50.52 On home O2 FAY treated with BiPAP Osteoarthritis Osteomyelitis of right foot ([facility]) SCHEDULED FOR THE SURGERY ON 02/11/2019 Seasonal allergies Shortness of breath URSULA (stress urinary incontinence, female) Vertigo Allergies Allergen Reactions Amlodipine Swelling Clonazepam Other reaction(s): Other (See Comments) made me sleep & cry Ketamine PHYSICAL EXAM: Temp 36.3 C (97.3 F) This is an age appropriate appearing female who is alert and oriented x 3. The patient appears wellnourished. Psychiatric: The patient is able to verbalize normally and seems to have a good understanding of her situation. left lower extremity examination Lymphatic System: Severe lower extremity pitting Vascular: Dorsalis pedis pulse: 2+ Posterior tibial pulse: 2+ Capillary refill is less than 3 seconds Skin/nails: Normal appearance, warm and dry Hair growth present on foot and toes Neurologic: Sensation intact to light touch throughout the foot and the ankle Muscle: Muscle strength testing: Anterior tibialis: 5/5 Posterior tibialis: 5/5 Peroneus brevis: 5/5 Peroneus longus: 5/5 Gastrocsoleus: 5/5 Very tender on posterior knee and thigh Superficial surgical wound to lower leg with no active drainage. Gait and Station: Siobhan was evaluated in a wheelchair and I did not have her stand today RADIOGRAPHIC INTERPRETATION: The following outside studies that were ordered by another care provider were reviewed and my interpretation of the these studies follows and these include: CT scan shows no signs of osteomyelitis ofthe scanned portions of the tibia or femur. A knee replacement is noted. No air in the soft tissuesis seen. REVIEW OF RELATED PREVIOUS DOCUMENTATION: Documents from the ER/Urgent care center were reviewed. LABORATORY RESULT INTERPRETATION: DIAGNOSIS: Diagnosis Plan 1. Left leg cellulitis 2. Infected wound MEDICAL DECISION MAKING: I had a discussion with Siobhan to make sure she has a good understanding of the diagnoses/issues that I think are present today and understands the plan moving forward. I had a long discussion with Siobhan again regarding the above knee amputation we discussed at her last visit with me. I explained that currently with her very recent PE and DVTs, and anemia with hemoglobin of 8.9 over the weekend, an above knee amputation carries many serious risks to her health. We discussed the option of delaying surgery in the hope that her hemoglobin level increases, as I explained that with the amputation there will be blood loss and I would feel more comfortable doing surgery if she were to get her hemoglobin up to at least 10. Siobhan was placed on iron and Vitamin C supplements from the hospital this weekend and will continue to take them. Siobhan expressed her desire to have the above knee amputation as soon as possible and acknowledged the very serious risks associated with having the surgery while having the comorbidities that she has. I again discussed with Siobhan the difficulties that could arise with attempting to walk again as the prosthesis for an above knee amputation is very heavy and requires a lot of effort to move, whichmay prove to be very difficult or next to impossible for Siobhan to achieve safely with her contralateral below knee amputation which could result in Siobhan being unable to walk again. The risks of the proposed above procedure were discussed including but not limited to the risks of reactions to medications given for surgery, the risk of blood loss, continued or worsening of the infection, damage to normal structures that can lead to detention problems of pain and/or dysfunction,the potential for non-healing wounds/incisions that may require further operative intervention in the future including more a proximal amputation. In addition potentially life threatening complications (DVT, PE, CO, stroke,and even ) at the time of surgery and after surgery were discussed. Siobhan and Siobhan's family understand that no guarantees with regard to surgical outcome can be givenand none were implied. Follow up in about 2 weeks (around 11/06/2022). Plan for surgery following day 11/07/22 Electronically signed by CARMELA Ramos [facility] Department of Orthopedic surgery 10/23/2022 4:45 PM Voice recognition was used for portions of this note and although it was reviewed prior to signing some incorrect words or phrases could be present. * Rusty Bassett MD - 10/23/2022 2:00 PM EST SURGERY SCHEDULING SHEET Procedure: left Above knee amputation (71209) CPT codes: see above Diagnosis: Left leg cellulitis [L03.116] Location for Surgery: [facility] Schedule for: 2.5 hours Admission Type: Outpatient with Bed Medical Clearance: Yes with PCP/IMS Antibiotic: Ancef 3g IV Anesthesia: General + Regional Position and Table type: Supine on Regular OR table Radiology: None Equipment: Wide saw blade and narrow saw blade and VAC dressings documented in this [facility] [place] [facility]01-20-[address] Trinidad [facility] October 20, 2022 11:38am Note Date/Time October 20, 2022 1 1:34am [facility] Medical Records Department [address] [place] [address] Instructions for Home/Discharge Instructions 10/20/22 1106 MR#: [id number] Acct: [id number] Name: SIOBHAN HAAS Rep #:[id number] : 1960 62 From: Rigo jackson MD PCP: GINO Vasques Sta tus:ADM IN Discharge Instructions Diet Discharge Diet: Low fat / Low cholesterol Activity Discharge Activity: Return to Normal Activity Dressing / Incision Call your doctor if you observe: Fever of 101 or Higher, Shortness of breath, Dizziness, Fainting spells, Swelling in the ankles, Chest pain and Increased palpitations (irregular heartbeat) Follow Up Care Test Results: Test results from this visit will be discussed in further detail at your follow- up appointment, if applicable. Discharge Plan Admission Admit Date/Time: 10/16/22 01:31 Attending Provider: Rigo Trinidad Primary Care Provider: Oj Maddox NP Consulting Providers: Mag Cantu Discharge Orders/Prescriptions Prescriptions: New ascorbic acid (vitamin C) 500 mg Tablet 500 mg PO 1200,1700 30 Days Qty: 60 0RF Rx Instructions: take with iron cephalexin 500 mg Capsule 500 mg PO Q6 10 Days Qty: 40 0RF ferrous sulfate [FeroSul] 325 mg (65 mg iron) Tablet 325 mg PO 1200,1700 30 Days Qty: 60 0RF Continued albuterol sulfate 90 mcg/actuation HFA aerosol inhaler 2 puff inhalation Q6H PRN (Reason: shortness of breath or wheezing) Qty: 8.5 6RF Rx Instructions: administer with spacer potassium chloride 20 MEQ tablet 40 meq PO DAILY valsartan 320 mg tablet 320 mg PO DAILY omeprazole 40 mg capsule,delayed release(DR/EC) 40 mg PO DAILY pramipexole 1.5 mg tablet 3 mg PO QHS cyclobenzaprine 10 MG tablet 10 mg PO QHS PRN (Reason: muscle spasm) Qty: 0 0RF Label Comments: muscle relaxer famotidine 20 mg Tablet 20 mg PO BID amitriptyline 100 mg tablet 100 mg PO QHS cholecalciferol (vitamin D3) 1,250 mcg (50,000 unit) capsule 1,250 mcg PO MO Label Comments: TAKE 1 CAPSULE BY MOUTH EVERY WEEK metoprolol succinate 50 mg tablet extended release 24 hr 50 mg PO DAILY Label Comments: TAKE 1 TABLET BY MOUTH EVERY DAY montelukast 10 mg Tablet 10 mg PO DAILY escitalopram oxalate 20 mg tablet 20 mg PO DAILY Label Comments: TAKE 1 TABLET BY MOUTH ONCE DAILY FOR 30 DAYS. STOP CELEXA. duloxetine 30 mg capsule,delayed release(DR/EC) 30 mg PO DAILY Label Comments: TAKE 1 CAPSULE BY MOUTH 1 (ONE) budesonide-formoterol [Symbicort] 160-4.5 mcg/actuation HFA aerosol inhaler 2 puff inhalation BID Rx Instructions: administer with spacer, rinse mouth after each use apixaban 5 mg tablet 5 mg PO BID Referrals / Follow Up: Rusty Bassett MD [Non-Staff] - 10/23/22 Oj Maddox NP, NP-C [Primary Care Provider] - Within 1 Week Disposition Disposition (needs filled in before D/C Order can be placed): Home, Self Care 10/20/22 1138<Electronically signed by Rigo Trinidad MD>Rigo Trinidad MD CC: MAINTENANCE MECHANIC ENGINE-C Oj Maddox; Dr. Mag Cantu MD ~ Signed [facility] Work Phone: [phone]) 436-302701-19-[address] Trinidad [facility] October 19, 2022 11:51am Note Date/Time October 19, 2022 1 1:50am [facility] Medical Records Department [address] [place] [address] Progress Note - Hospitalist 10/19/22 1147 MR#: [id number] Acct: [id number] Name: SIOBHAN HAAS Rep #:[id number] : 1960 62 From: Rigo jackson MD PCP: GINO Vasques Sta tus:ADM IN Location: [place] [address] Subjective Subjective Doing well today, remains afebrile and leukocytosis continues to improve howeverravin still has dependent edema and redness in her left lower extremity Objective Data Objective Data Vital Signs: Vital Signs Temp Pulse Resp BP Pulse Ox O2 Del Method O2 Flow Rate 97.8 F 86 17 116/65 95 Room Air 2 10/19/22 09:20 10/19/22 09:25 10/19/22 09:20 10/19/22 09:25 10/19/22 09:20 10/19/22 09:30 10/17/22 23:06 Oxygen Flow Rate (L/min) 2 Oxygen Delivery Method Room Air Weight: 369 lb 7.916 oz Body Mass Index (BMI) 59.3 Intake & Output: Intake and Output for Last 24 Hours 10/18/22 10/19/22 10/20/22 03:59 03:59 03:59 Intake Total 990 / 990 1740 / 1740 50 / 50 Output Total 550 / 550 800 / 800 200 / 200 Balance 440 / 440 940 / 940 -150 / -150 Lab / Micro Data Result Diagrams: 10/19/22 04:53 10/19/22 04:53 Labs: Laboratory Results - last 24 hr 10/19/22 04:53: WBC 5.7, RBC 3.65 L, Hgb 8.1 L, Hct 28.9 L, MCV 79.2 L, MCH 22.2L, MCHC 28.0 L, RDW Std Deviation 53.4 H, RDW Coeff of Naga 18.5 H, Plt Count 236, MPV 10.4, Immature Gran % (Auto) 0.900, Neut % (Auto) 59.2, Lymph % (Auto) 20.7, Seward % (Auto) 14.6 H, Eos % (Auto) 3.9, Baso % (Auto) 0.7, Absolute Neuts (auto) 3.4, Absolute Lymphs (auto) 1.18, Nucleated RBC % 0.7 10/19/22 04:53: Sodium 136, Potassium 4.5, Chloride 104, Carbon Dioxide 26.0, Anion Gap 6, BUN 13, Creatinine 0.84, Estim Creat Clear Calc 64.17, Est GFR (MDRD) Af Amer 88, Est GFR (MDRD) Non-Af 73, BUN/Creatinine Ratio 15.5, Glucose 94, Calcium 8.4 L Micro: Microbiology 10/15/22 23:40 Blood Culture (Wb) - Arm Left Blood Culture - Preliminary No growth in 48 hours. 10/15/22 23:58 Blood Culture (Wb) - Arm Left Blood Culture - Preliminary No growth in 48 hours. 10/16/22 03:25 Wound - Ankle Gram Stain - Final 10/16/22 03:25 Wound - Ankle Wound Culture - Final Staphylococcus aureus Streptococcus pyogenes Radiography Diagnostic Testing: Radiology Impression Lower Extremity CT 10/18/22 10:09 IMPRESSION: Diffuse subcutaneous increased markings in the left lower extremity worse in the left lower leg with overlying skin thickening. No focal fluid collection or abscess is seen. The patient is status post left total knee replacement. Enlarged left inguinal lymph nodes. Electronically Signed: Sean Cotton MD at 12:58 EST , Physical Exam Narrative General: Alert, Oriented x3, Cooperative, No apparent distress HEENT: Atraumatic, PERRLA, EOMI, Normocephalic Oral: Moist Mucosa Neck: Supple, No JVD Lungs: Clear to auscultation, Normal air movement, No rhonchi, No wheeze, No rales Cardiovascular: Regular rate, Regular Rhythm, Normal S1, Normal S2, No murmurs Abdomen: Soft, Non Tender, Non-Distended, No Hepato-splenomegaly, obese Extremities: Right BKA, left is swollen with some erythema on the medial and lateral aspects of her upper thigh Skin: 3 areas of skin breakdown on her left lower extremity no obvious signs of purulent infection Musculoskeletal: No Tenderness to Palpation of Joints or Extremities Neurological: Cranial nerves II-XII grossly intact, Motor Exam 5/5 strength throughout, Sensory exam intact to light touch and pain Psych/Mental Status: Normal Affect, Appropriate Assessment & Plan Assessment/Plan (1) Cellulitis of left lower extremity: PLAN: Plan 1. Sepsis secondary to left lower extremity cellulitis ? Wound culture with MSSA and strep pyogenes ? CT scans negative for any abscess, will give her a dose of IV Lasix to help with the swelling in her left lower extremity, encouraged her to get out of bed and ambulate ? We will transition her antibiotics to p.o. Keflex and monitor for another 24 hours ? White count has resolved ?She does have an appointment with the orthopedic surgeon who had done some of her wound infection surgeries, this Sunday ? She does have a history of an necrotizing fasciitis back in December 2. HTN ? Blood pressures are stable ? Continue with her home blood pressure medications 3. Recent bilateral PEs ? Stable ? Continue with Eliquis 4. Anxiety/depression ? Continue with her home medications ? Stable 5. GERD ? Stable ? Continue with PPI 6. Iron deficiency anemia ? Iron studies did demonstrate iron deficiency anemia, she did get a dose of Venofer yesterday, will transition her to oral replacement ? She is on a PPI so we will also start her on vitamin C whenever she takes her iron. DVT: Eliquis Charges/Coding Visit Charges Inpatient E&M: 13432 Subs Hosp L2 10/19/22 1151 <Electronically signed by Rigo Trinidad MD> Cosigner Signature (if applicable): CC: ~ Signed [facility] Work Phone: [phone]) 177-621901-19-2023 Telephone encounter Note* Telephone Encounter - Andie Amador MA - 10/19/2022 9:48 AM EST Called to check on her and her attending was in the room when I called he states she has MSSA - on 2 IV abx several lymph nodes enlarged in groin and thigh, Lasix for swelling/edema. CT scan- shows no abscess he will work on getting it pushed over to our pax and scheduled her for Sunday for [id number] Miscellaneous Notes* Telephone Encounter - Andie Amador MA - 10/19/2022 9:48 AM EST Called to check on her and her attending was in the room when I called he states she has MSSA - on 2 IV abx several lymph nodes enlarged in groin and thigh, Lasix for swelling/edema. CT scan- shows no abscess he will work on getting it pushed over to our pax and scheduled her for Sunday for hospital follow up * Telephone Encounter - Ryan Shah MD - 10/17/2022 11:59 AM EST She will need to see Jess, unfortunately I dont have anything more to offer * Telephone Encounter - Vishnu Arias - 10/17/2022 11:21 AM EST Pt is currently hospitalized in [facility], admitted for cellulitis. Daughter wanted to let you know for follow up. Please advise as needed. documented in this [facility] [place] [facility]01-18-[address] [facility] 18, 2022 10:18am Note Date/Time October 18, 2022 1 0:18am [facility] Medical Records Department [address] [place] [address] Progress Note - Hospitalist 10/18/22 1012 MR#: [id number] Acct: [id number] Name: SIOBHAN HAAS Rep #:[id number] : 1960 62 From: Rigo jackson MD PCP: Oj Maddox, MAINTENANCE MECHANIC ENGINELoboC Mata tus:ADM IN Location: [place] [address] Subjective Subjective Doing well today, she has continued redness on the medial lateral aspect of her upper thigh with some warmth. No fevers and white count is stable Objective Data Objective Data Vital Signs: Vital Signs Temp Pulse Resp BP Pulse Ox O2 Del Method O2 Flow Rate 98.7 F 90 17 119/68 93 Room Air 2 10/18/22 08:17 10/18/22 08:19 10/18/22 08:17 10/18/22 08:19 10/18/22 08:17 10/18/22 08:17 10/17/22 23:06 Oxygen Flow Rate (L/min) 2 Oxygen Delivery Method Room Air Weight: 369 lb 7.916 oz Body Mass Index (BMI) 59.3 Intake & Output: Intake and Output for Last 24 Hours 10/17/22 10/18/22 10/19/22 03:59 03:59 03:59 Intake Total 3967.5 / 3967.5 990 / 990 Output Total 700 / 700 550 / 550 Balance 3267.5 / 3267.5 440 / 440 Lab / Micro Data Result Diagrams: 10/18/22 05:55 10/18/22 05:55 Labs: Laboratory Results - last 24 hr 10/18/22 05:55: WBC 6.7, RBC 3.63 L, Hgb 8.0 L, Hct 27.7 L, MCV 76.3 L, MCH 22.0L, MCHC 28.9 L, RDW Std Deviation 51.4 H, RDW Coeff of Naga 18.5 H, Plt Count 265, MPV 10.2, Immature Gran % (Auto) 0.600, Neut % (Auto) 67.3, Lymph % (Auto) 16.7 L, Seward % (Auto) 12.0 H, Eos % (Auto) 2.9, Baso % (Auto) 0.5, Absolute Neuts (auto) 4.5, Absolute Lymphs (auto) 1.11, Nucleated RBC % 0 10/18/22 05:55: Sodium 139, Potassium 4.4, Chloride 105, Carbon Dioxide 28.0, Anion Gap 6, BUN 12, Creatinine 0.94, Estim Creat Clear Calc 57.35, Est GFR (MDRD) Af Amer 77, Est GFR (MDRD) Non-Af 64, BUN/Creatinine Ratio 12.8, Glucose 101, Calcium 8.4 L Micro: Microbiology 10/16/22 03:25 Wound - Ankle Gram Stain - Final 10/16/22 03:25 Wound - Ankle Wound Culture - Preliminary Staphylococcus aureus Physical Exam Narrative General: Alert, Oriented x3, Cooperative, No apparent distress HEENT: Atraumatic, PERRLA, EOMI, Normocephalic Oral: Moist Mucosa Neck: Supple, No JVD Lungs: Clear to auscultation, Normal air movement, No rhonchi, No wheeze, No rales Cardiovascular: Regular rate, Regular Rhythm, Normal S1, Normal S2, No murmurs Abdomen: Soft, Non Tender, Non-Distended, No Hepato-splenomegaly, obese Extremities: Right BKA, left is swollen with some erythema on the medial and lateral aspects of her upper thigh Skin: 3 areas of skin breakdown on her left lower extremity no obvious signs of purulent infection Musculoskeletal: No Tenderness to Palpation of Joints or Extremities Neurological: Cranial nerves II-XII grossly intact, Motor Exam 5/5 strength throughout, Sensory exam intact to light touch and pain Psych/Mental Status: Normal Affect, Appropriate Assessment & Plan Assessment/Plan (1) Cellulitis of left lower extremity: PLAN: Plan 1. Sepsis secondary to left lower extremity cellulitis ? Wound culture with staph aureus ? Redness is improving with Zyvox and Zosyn, she is concerned as she does have ahistory in that leg for necrotizing fasciitis so we will proceed with a CT scan given the continued redness to evaluate for possible deeper abscesses ? White count has resolved ? She has remained afebrile and she has not received any Tylenol for 24 hours ? She does have a history of an necrotizing fasciitis back in December 2. HTN ? Blood pressures are stable ? Continue with her home blood pressure medications 3. Recent bilateral PEs ? Stable ? Continue with Eliquis 4. Anxiety/depression ? Continue with her home medications ? Stable 5. GERD ? Stable ? Continue with PPI 6. Iron deficiency anemia ? On review of her medical records, she has been anemic since about March and shehas had iron studies in the past that showed a low iron and a low and iron saturation with a normal TIBC and normal ferritin this is consistent with iron deficiency anemia I do not see any records of her being placed on iron supplementation ? We will check iron studies again today just to make sure, we will forego a ferritin given her cellulitis it will be elevated and therefore inconclusive. If her iron and her iron binding capacity are consistent with a iron deficiency anemia specially in the setting of her microcytosis, will give her a dose of IV iron and start her on oral replacement DVT: Eliquis 10/18/22 1018 <Electronically signed by Rigo Trinidad MD> Cosigner Signature (if applicable): CC: ~ Signed [facility] Work Phone: 1(383) 973-141001-17-[address] Trinidad [facility] October 17, 2022 11:51am Note Date/Time October 17, 2022 1 1:51am [facility] Medical Records Department [address] [place] [address] Progress Note - Hospitalist 10/17/22 1145 MR#: [id number] Acct: [id number] Name: SIOBHAN HAAS Rep #:[id number] : 1960 62 From: Rigo jackson MD PCP: GINO Vasques Sta tus:ADM IN Location: [place] [address] Subjective Subjective Doing well, no significant issues overnight, she has been spiking temperatures yesterday so we will keep an eye on her for another 24 hours Objective Data Objective Data Vital Signs: Vital Signs Temp Pulse Resp BP Pulse Ox O2 Del Method O2 Flow Rate 99.2 F H 81 16 133/81 H 92 Room Air 2 10/17/22 09:36 10/17/22 11:25 10/17/22 11:25 10/17/22 09:36 10/17/22 11:25 10/17/22 11:25 10/16/22 21:35 Oxygen Flow Rate (L/min) 2 Oxygen Delivery Method Room Air Weight: 369 lb 7.916 oz Body Mass Index (BMI) 59.3 Intake & Output: Intake and Output for Last 24 Hours 10/16/22 10/17/22 10/18/22 03:59 03:59 03:59 Intake Total 1350.00 / 1350.00 3967.5 / 3967.5 590 / 590 Output Total 700 / 700 250 / 250 Balance 1350.00 / 1350.00 3267.5 / 3267.5 340 / 340 Lab / Micro Data Result Diagrams: 10/17/22 06:10 10/17/22 06:10 Labs: Laboratory Results - last 24 hr 10/17/22 06:10: WBC 7.7, RBC 3.94 L, Hgb 8.7 L, Hct 30.1 L, MCV 76.4 L, MCH 22.1L, MCHC 28.9 L, RDW Std Deviation 51.3 H, RDW Coeff of Naga 18.5 H, Plt Count 225, MPV 10.1, Immature Gran % (Auto) 0.800, Neut % (Auto) 72.7 H, Lymph % (Auto) 12.6 L, Seward % (Auto) 11.9 H, Eos % (Auto) 1.6, Baso % (Auto) 0.4, Absolute Neuts (auto) 5.6, Absolute Lymphs (auto) 0.97, Nucleated RBC % 0 10/17/22 06:10: Sodium 137, Potassium 3.6, Chloride 103, Carbon Dioxide 27.0, Anion Gap 7, BUN 10, Creatinine 0.84, Estim Creat Clear Calc 64.17, Est GFR (MDRD) Af Amer 88, Est GFR (MDRD) Non-Af 73, BUN/Creatinine Ratio 11.9, Glucose 120 H, Calcium 8.4 L Micro: Microbiology 10/16/22 03:25 Wound - Ankle Gram Stain - Final 10/16/22 03:25 Wound - Ankle Wound Culture - Preliminary Physical Exam Narrative General: Alert, Oriented x3, Cooperative, No apparent distress HEENT: Atraumatic, PERRLA, EOMI, Normocephalic Oral: Moist Mucosa Neck: Supple, No JVD Lungs: Clear to auscultation, Normal air movement, No rhonchi, No wheeze, No rales Cardiovascular: Regular rate, Regular Rhythm, Normal S1, Normal S2, No murmurs Abdomen: Soft, Non Tender, Non-Distended, No Hepato-splenomegaly, obese Extremities: Right BKA, left is swollen with some erythema Skin: 3 areas of skin breakdown on her left lower extremity no obvious signs of purulent infection Musculoskeletal: No Tenderness to Palpation of Joints or Extremities Neurological: Cranial nerves II-XII grossly intact, Motor Exam 5/5 strength throughout, Sensory exam intact to light touch and pain Psych/Mental Status: Normal Affect, Appropriate Assessment & Plan Assessment/Plan (1) Cellulitis of left lower extremity: PLAN: Plan 1. Sepsis secondary to left lower extremity cellulitis ? Wound culture so far is negative for any growth ? Redness is improving with Zyvox and Zosyn though this does appear to be more of a strep infection than a staph infection ? White count has resolved ? Was having elevated temperatures yesterday so we will monitor for another 24 hours if she continues to have elevated temperatures may need to pursue imaging of her lower extremity with a CT scan ? She does have a history of an excising fasciitis back in December 2. HTN ? Blood pressures are stable ? Continue with her home blood pressure medications 3. Recent bilateral PEs ? Stable ? Continue with Eliquis 4. Anxiety/depression ? Continue with her home medications ? Stable 5. GERD ? Stable ? Continue with PPI DVT: Eliquis Charges/Coding Visit Charges Inpatient E&M: 85538 Subs Hosp L2 10/17/22 1151 <Electronically signed by Rigo Trinidad MD> Cosigner Signature (if applicable): CC: ~ Signed [facility] Work Phone: [phone]) 868-489201-17-2023 Telephone encounter Note* Telephone Encounter - Ryan Shah MD - 10/17/2022 11:59 AM EST She will need to see eJss, unfortunately I dont have anything more to offer [facility] [employer] Work Phone: [phone]) 799-575501-17-2023 Miscellaneous Notes* Telephone Encounter - Ryan Sahh MD - 10/17/2022 11:59 AM EST She will need to see Jess, unfortunately I dont have anything more to offer * Telephone Encounter - Vishnu Arias - 10/17/2022 11:21 AM EST Pt is currently hospitalized in [facility], admitted for cellulitis. Daughter wanted to let you know for follow up. Please advise as needed. documented in this encounterSGenesis [id number] Telephone encounter Note* Telephone Encounter - Vishnu Arias - 10/17/2022 11:21 AM EST Pt is currently hospitalized in [facility], admitted for cellulitis. Daughter wanted to let you know for follow up. Please advise as needed. [id number] History and physical note Author Dr. Cantu [facility] October 16, 2022 6:42am Note Date/Time October 16, 2022 1 :29am [facility] Medical Records Department [address] [place] [address] H&P Exam - Hospitalist 10/16/22122 MR#: [id number] Acct: [id number] Name: SIOBHAN HAAS Rep #:[id number] : 1960 62 From: Mag Cantu MD PCP: GINO Vasques tus:AD[facility] - General General Date of Admission: 10/16/22 Date of Service: 10/16/22 Chief Complaint: LLE redness, pain and swelling HPI Narrative SIOBHAN HAAS, is a 62 F with a PMH as outlined who presents via the ED with acomplaint of redness, pain and swelling of the left lower extremity which started on the morning of admission. She had associated fever. She also noted some discharge from her LLE. Pain, redness, swelling and fever with associated chills persisted so she came in to the ED. She was recently admitted in August2022 for cellulitis of the RKE which improved with administration of IV antibiotics. She had necrotising fasciitis of the LLE in December 2021 and had fasciotomy done at [facility]. Vitals in the ED at time of review were BP of 128/44, RR of 33, ND of 99 and temp of 100.8F. She was saturating at 96% on room air. CBC showed wbc of 12.4, Hb of 9.3 and platelets of 301. INR is 1 and chemistry was unremarkable. ESR was46 and CRP was 18. XRay of the left tibia, fibula and ankle showed diffuse soft tissue swelling and no evidence of osteomyelitis. SHe is being admitted to be managed for cellulitis of hte LLE. She was started on IV linezolid and zosyn in the ED. [facility] Medical History (Updated 10/16/22 @ 01:[address] David Felipe, ) Anemia Anxiety Anxiety and depression Asthma Asthma exacerbation Below knee amputation Benign essential HTN BiPAP (biphasic positive airway pressure) dependence Bronchospasm Depression Failure of outpatient treatment Family history of diabetes mellitus (DM) Fibromyalgia Former smoker GERD (gastroesophageal reflux disease) Hypertension Morbid obesity Necrotizing fasciitis Obstructive sleep apnea Reflex sympathetic dystrophy Restless leg syndrome Rheumatoid arthritis Sleep apnea Home Medications potassium chloride 20 mEq tablet,extended release(part/cryst) 40 meq PO DAILY supplement 11/01/18 [History Last Taken 08/31/22] albuterol sulfate 90 mcg/actuation aerosol inhaler 2 puff inhalation Q6H PRN shortness of breath or wheezing #8.5 grams 05/11/21 [Rx Last Taken 08/24/22] valsartan 320 mg tablet 320 mg PO DAILY heart 05/19/21 [History Last Taken 08/31/22] omeprazole 40 mg capsule,delayed release 40 mg PO DAILY gerd 06/15/21 [History Last Taken 08/31/22] pramipexole 1.5 mg tablet 3 mg PO QHS rls 06/15/21 [History Last Taken 08/30/22] cyclobenzaprine 10 mg tablet 10 mg PO QHS PRN muscle spasm #0 tabs 06/09/22 [Rx Last Taken 08/31/22] amitriptyline 100 mg tablet 100 mg PO DAILY PAIN AND SLEEP 08/31/22 [History Last Taken 08/30/22] cholecalciferol (vitamin D3) 1,250 mcg (50,000 unit) capsule 1,250 mcg PO MO SUPPLEMENT 08/31/22 [History Last Taken 08/28/22] famotidine 20 mg tablet 20 mg PO BID GERD 08/31/22 [History Last Taken 08/31/22] apixaban 5 mg tablet 5 mg PO BID blood thinner 10/16/22 [History Last Taken Unknown] budesonide-formoterol HFA 160 mcg-4.5 mcg/actuation aerosol inhaler (Symbicort) 2 puff inhalation BID asthma 10/16/22 [History Last Taken Unknown] duloxetine 30 mg capsule,delayed release 30 mg PO DAILY depression 10/16/22 [History Last Taken Unknown] escitalopram oxalate 20 mg tablet 20 mg PO DAILY depression 10/16/22 [History Last Taken Unknown] metoprolol succinate 50 mg tablet,extended release 24 hr 50 mg PO DAILY blood pressure 10/16/22 [History Last Taken Unknown] montelukast 10 mg tablet 10 mg PO DAILY asthma 10/16/22 [History Last Taken Unknown] Allergy/AdvReac Type Severity Reaction Status Date / Time vancomycin Allergy Rash Verified 10/15/22 23:25 amlodipine AdvReac Swelling Verified 10/15/22 23:25 Family History (Reviewed 10/04/22 @ 08:19 by Adwoa Cruz MAINTENANCE MECHANIC ENGINE, MAINTENANCE MECHANIC ENGINE-C) Mother Hypertension Cancer Pancreatic Diabetes Father Cancer pancreatic Brother Diabetes Grandfather Diabetes Surgical History Chronic knee pain after total replacement of left knee joint H/O foot surgery History of hysterectomy History of tonsillectomy Hx of breast reduction, elective Social History (Reviewed 10/04/22 @ 08:19 by Adwoa Cruz MAINTENANCE MECHANIC ENGINE, MAINTENANCE MECHANIC ENGINE-C) household members: significant other Smoking Status: Former smoker alcohol intake: never substance use type: does not use ROS Review of Systems ROS Unobtainable: Denies due to encephalopathy Constitutional Constitutional: Reports chills, fatigue, fever(s), malaise and weakness; Denies anorexia Eyes Eyes: Denies change in vision ENT HEENT: Denies dysphagia, headache(s), nasal congestion or sore throat Cardiovascular Cardiovascular: Denies chest pain, dyspnea on exertion, edema, lightheadedness, orthopnea, palpitations, paroxysmal nocturnal dyspnea, rapid heart rate or syncope Respiratory/Chest Respiratory/Chest: Denies cough, dyspnea, shortness of breath at rest or shortness of breath with exertion Gastrointestinal Gastrointestinal: Denies abdominal pain, constipation, diarrhea, nausea or vomiting Genitourinary Genitourinary: Denies dysuria Musculoskeletal Musculoskeletal: Denies arthralgias, back pain, joint pain, joint swelling or neck pain Neurologic Neurologic: Denies confusion, dizziness, focal weakness or headache(s) Vital Signs Vital Signs Vital Signs: 10/15/22 23:18 10/16/22 00:07 10/16/22 01:18 Temperature 103 F H 100.4 F H Temperature Source Oral Oral Pulse Rate 115 H 106 H Respiratory Rate 21 H 19 H Blood Pressure 135/83 H 128/65 H Blood Pressure Mean 100 86 Pulse Ox 99 98 Oxygen Delivery Method Room Air Room Air Room Air Weight Weight: 380 lb 8.285 oz Body Mass Index (BMI) 61.4 Physical Exam Const alert, oriented x3 and no apparent distress Constitutional Narrative: super morbid obesity, looks uncomfortable due to pain in LLE HEENT normocephalic, head/scalp atraumatic, hearing grossly normal bilaterally and moist oral mucous membranes Mouth: oral and palatal mucosa normal Eyes PERRL, EOMs intact bilaterally and conjunctivae normal Neck no lymphadenopathy, supple and no JVD Resp normal respiratory effort, no retractions, no use of accessory muscles and clearto auscultation bilaterally Cardio regular rate, regular rhythm, S1 normal heart sound, S2 normal heart sound and no murmurs GI normal to inspection, nondistended, normoactive bowel sounds, soft to palpation,non-tender and non-distended Extremity Extremity Narrative: Has RLE AKA with prosthesis in place. LLE is edematous, has erythema extending from dorsum of left foot up to just below the knee. Site of scar from fasciotomy is crusted over with yellowish discharge. Tender to touch, warm to touch. Neuro oriented x3 Sensorium / Orientation: awake and alert Psych affect normal Results Lab / Micro Data Result Diagrams: 10/15/22 23:40 10/15/22 23:40 Labs: Laboratory Results - last 24 hr 10/15/22 23:40: WBC 12.4 H, RBC 4.22, Hgb 9.3 L, Hct 32.6 L, MCV 77.3 L, MCH 22.0 L, MCHC 28.5 L, RDW Std Deviation 52.1 H, RDW Coeff of Naga 18.8 H, Plt Count 301, MPV 10.0, Immature Gran % (Auto) 0.300, Neut % (Auto) 84.3 H, Lymph %(Auto) 7.6 L, Seward % (Auto) 6.4, Eos % (Auto) 1.0, Baso % (Auto) 0.4, Absolute Neuts (auto) 10.5 H, Absolute Lymphs (auto) 0.94, Nucleated RBC % 0, ESR 46 H 10/15/22 23:40: Sodium 136, Potassium 4.3, Chloride 106, Carbon Dioxide 24.0, Anion Gap 6, BUN 16, Creatinine 0.90, Estim Creat Clear Calc 59.89, Est GFR (MDRD) Af Amer 81, Est GFR (MDRD) Non-Af 67, BUN/Creatinine Ratio 17.7, Glucose 136 H, Calcium 8.6, C-React Prot Ext Range 18.00 H 10/15/22 23:58: Lactic Acid 2.0 10/15/22 23:58: PT 13.2, INR 1.0, APTT 28.9 Radiology Impression Ankle X-Ray 10/16/22 00:03 IMPRESSION: Soft tissue swelling. No evidence of fracture. Electronically Signed: Joaquina Mayer MD at 0:42 EST Reading Location ID and State: [facility] / [place] Tel , Service support , Tibia/Fibula X-Ray 10/16/22 00:04 IMPRESSION: Diffuse soft tissue swelling. Question wound lateral at the ankle. No radiographic evidence of osteomyelitis. MRI may be helpful for further evaluation. Electronically Signed: Joaquina Mayer MD at 0:46 EST , Assessment & Plan Assessment/Plan (1) Cellulitis of left lower extremity: PLAN: Plan #SIRS criteria due to cellulitis of LLE * Admit to PCU on account of positive SIRS criteria. * Redness, swelling and pain of left lower extremity started to start 5 PM on the night before admission with associated fever and chills. * X-ray of the left foot showed diffuse soft tissue swelling with no evidence of osteomyelitis. * CBC is mildly elevated at 12.4. * Started on IV linezolid and IV Zosyn. Patient allergic to IV vancomycin and she got red man syndrome from it due to previous admission. * Blood cultures and wound cultures ordered. * PT OT consulted. * Of note she was admitted in August 2022 for left lower extremity cellulitis and this was complicated by acute hypoxic respiratory failure due to bilateral PE as well as MSSA pneumonia. She was discharged home on oral Keflex. * #History of necrotizing fasciitis, s/p fasciotomy of left lower extremity back in December 2021. #History of bilateral PE: On Eliquis ##Hypertension: On valsartan and Lasix #Anxiety and depression: On amitriptyline and escitalopram #Rheumatoid arthritis: On steroids #GERD: On PPI DVT prophylaxis: On Eliquis Code status: full code * Patient counseled extensively about different types of CODE STATUS including full code, DNR CCA and DNR CCA. * Patient elects to be full code. * Total zevb-dy-egab time 17 minutes. Charges/Coding Visit Charges Inpatient E&M: 03528 Init Hosp L3 Procedures Hospitalists Procedures: 66170 Advncd Care Plan 30 Min 10/16/22 0642 <Electronically signed by Mag Cantu MD> Cosigner Signature (if applicable): CC: MAINTENANCE MECHANIC ENGINERona Maddox; Dr. Mag Cantu MD~ Signed [facility] Work Phone: 1(480) 890-814201-16-2023 Discharge summary Author David Felipe [facility] October 16, 2022 3:40am Note Date/Time October 16, 2022 1 :30am [facility] Medical Records Department [address] [place] [address] Emergency Department Summary 10/16/22 MR#: [id number] Acct: [id number] Name: SIOBHAN HAAS Rep #:[id number] : 1960 62 From: David Felipe DO PCP: GINO Vasques tus:ADM IN Location: [place] [address] HPI History of Present Illness Chief Complaint: Wound Narrative Narrative: Patient is a 62-year-old female with past medical history of hypertension chronic left lower leg wound previous necrotizing fasciitis bilateral pulmonary embolism currently on Eliquis and previous below the knee leg amputation on right. She states that today she just felt unwell and later in the day noticed that she was having redness and swelling to her left lower leg. She states this evening she developed a fever up to 103 with increasing pain in the left leg. She states she has concerned that she is developing an infection onceagain similar to her previous bout of necrotizing fasciitis and therefore comes to the hospital for evaluation [facility] Medical History (Updated 10/16/22 @ 02:49 by Isabela Dumont) Anemia Anxiety Anxiety and depression Asthma Asthma exacerbation Below knee amputation Benign essential HTN BiPAP (biphasic positive airway pressure) dependence Bronchospasm Depression Failure of outpatient treatment Family history of diabetes mellitus (DM) Fibromyalgia Former smoker GERD (gastroesophageal reflux disease) Hypertension Morbid obesity Necrotizing fasciitis Obstructive sleep apnea Pulmonary embolism Reflex sympathetic dystrophy Restless leg syndrome Rheumatoid arthritis Sleep apnea Home Medications potassium chloride 20 mEq tablet,extended release(part/cryst) 40 meq PO DAILY supplement 11/01/18 [History Last Taken 08/31/22] albuterol sulfate 90 mcg/actuation aerosol inhaler 2 puff inhalation Q6H PRN shortness of breath or wheezing #8.5 grams 05/11/21 [Rx Last Taken 08/24/22] valsartan 320 mg tablet 320 mg PO DAILY heart 05/19/21 [History Last Taken 08/31/22] omeprazole 40 mg capsule,delayed release 40 mg PO DAILY gerd 06/15/21 [History Last Taken 08/31/22] pramipexole 1.5 mg tablet 3 mg PO QHS rls 06/15/21 [History Last Taken 08/30/22] cyclobenzaprine 10 mg tablet 10 mg PO QHS PRN muscle spasm #0 tabs 03/09/22 [Rx Last Taken 08/31/22] amitriptyline 100 mg tablet 100 mg PO QHS PAIN AND SLEEP 08/31/22 [History Last Taken 08/30/22] cholecalciferol (vitamin D3) 1,250 mcg (50,000 unit) capsule 1,250 mcg PO MO SUPPLEMENT 08/31/22 [History Last Taken 08/28/22] famotidine 20 mg tablet 20 mg PO BID GERD 08/31/22 [History Last Taken 08/31/22] apixaban 5 mg tablet 5 mg PO BID blood thinner 10/16/22 [History Last Taken Unknown] budesonide-formoterol HFA 160 mcg-4.5 mcg/actuation aerosol inhaler (Symbicort) 2 puff inhalation BID asthma 10/16/22 [History Last Taken Unknown] duloxetine 30 mg capsule,delayed release 30 mg PO DAILY depression 10/16/22 [History Last Taken Unknown] escitalopram oxalate 20 mg tablet 20 mg PO DAILY depression 10/16/22 [History Last Taken Unknown] metoprolol succinate 50 mg tablet,extended release 24 hr 50 mg PO DAILY blood pressure 10/16/22 [History Last Taken Unknown] montelukast 10 mg tablet 10 mg PO DAILY asthma 10/16/22 [History Last Taken Unknown] Allergy/AdvReac Type Severity Reaction Status Date / Time vancomycin Allergy Rash Verified 10/15/22 23:25 amlodipine AdvReac Swelling Verified 10/15/22 23:25 Family History (Reviewed 10/04/22 @ 08:19 by Adwoa Cruz MAINTENANCE MECHANIC ENGINE, MAINTENANCE MECHANIC ENGINE-C) Mother Hypertension Cancer Pancreatic Diabetes Father Cancer pancreatic Brother Diabetes Grandfather Diabetes Surgical History Chronic knee pain after total replacement of left knee joint H/O foot surgery History of hysterectomy History of tonsillectomy Hx of breast reduction, elective Social History (Reviewed 10/04/22 @ 08:19 by Adwoa Cruz MAINTENANCE MECHANIC ENGINE, MAINTENANCE MECHANIC ENGINE-C) household members: significant other Smoking Status: Former smoker alcohol intake: never substance use type: does not use ROS ROS ED Constitutional Constitutional ED: Reports chills and fever(s) ENT ENT ED: Denies sore throat Cardiovascular Cardiovascular: Denies chest pain Respiratory/Chest Respiratory/Chest: Denies cough or dyspnea Gastrointestinal Gastrointestinal: Reports nausea; Denies abdominal pain, diarrhea or vomiting Genitourinary Genitourinary ED: Denies dysuria Musculoskeletal Musculoskeletal: Reports other Details: Positive left leg pain Integumentary Reports other Details: Positive chronic wound to the left leg as well as left leg redness Neurologic Neurologic: Denies headache(s) Hematologic/Lymphatic Hematologic/Lymphatic: Reports easy bleeding and easy bruising EXAM Physical Exam Const Vital Signs: 10/15/22 23:18 10/16/22 00:07 10/16/22 01:18 Temperature 103 F H 100.4 F H Temperature Source Oral Oral Pulse Rate 115 H 106 H Respiratory Rate 21 H 19 H Blood Pressure 135/83 H 128/65 H Blood Pressure Mean 100 86 Pulse Ox 99 98 Oxygen Delivery Method Room Air Room Air Room Air 10/16/22 00:21 10/16/22 01:21 Temperature 102 F H 101 F H Temperature Source Oral Oral Pulse Rate 115 H 104 H Respiratory Rate 26 H 27 H Blood Pressure 135/83 H 128/44 H Blood Pressure Mean 100 72 Pulse Ox 95 96 Oxygen Delivery Method Room Air Room Air Positive well nourished, well developed and obese General Appearance ED: well developed Nutritional Appearance: obese Eyes PERRL and EOMs intact bilaterally Neck supple Neck Narrative: No nuchal rigidity or meningeal signs present Resp normal respiratory effort and clear to auscultation bilaterally Cardio regular rhythm Rate: tachycardic and other Other Details: Radial pulses are plus 2 out of 4 bilaterally are equal and symmetric GI normal to inspection, nondistended, normoactive bowel sounds, non-tender, non-distended and no masses GI Narrative: No voluntary guarding or rigidity no pulsatile mass or fluid wave Auscultation: normoactive bowel sounds Palpation: soft Extremity Extremity Narrative: Patient has a below the knee right amputation. Left lower extremity is neurovascularly intact. She has chronic wounds to the medial and lateral aspectof the distal tibia/ankle. The wounds are only dermal layer deep with good granulation tissue. However extending out from the wound is diffuse erythema and warmth that tracks up to the knee. No abscess formation noted. No crepitance palpated. No lymphangitic streaking. Neuro oriented x3 and CN's II-XII intact bilaterally Sensorium / Orientation: alert Psych mental status grossly normal Skin Skin Narrative: Soft tissue changes to the left lower leg as documented above MDM MDM MDM Narrative Medical decision making narrative: Patient presented to the ER febrile and was tachycardic most consistent with thefever. She is not hypoxic nor she having chest pain and she is currently on Eliquis and my concern for PE is low. By exam she has erythema and warmth with chronic wounds concerning for cellulitis and underlying osteomyelitis. There isno crepitance to suggest gangrene. With the high fever there is concern she is also becoming septic so therefore basic blood work along with blood cultures were obtained. Patient was started on Zosyn and linezolid as she reports a vancomycin allergy. Patient is morbidly obese and as she is not hypotensive I elected only to provide 2 L of fluid at this time versus a true 30 mL/kg bolus which would have placed her at home was 4 L. Blood work revealed leukocytosis at 12.4 with lactic at the upper limit of normal at 2.0 and her CRP is elevated at 18 otherwise remainder labs revealed no clinically significant finding. X-rays of the left leg and ankle were obtained and show no obvious signs of osteomyelitis or free air to suggest a gangrenous infection. At this time however she does have a fever over 100.4 a white count of 12.4 she is tachycardic above 100 and we have a source of infection indicating mild sepsis. Secondary to this patient will be admitted to the hospital for continued IV antibiotics. The plan of care was discussed with the patient and she is agreeable to it Lab Data Attestation: I reviewed the patient's lab results. Labs: Laboratory Results - last 24 hr 10/15/22 10/15/22 10/15/22 23:40 23:40 23:58 WBC 12.4 H RBC 4.22 Hgb 9.3 L Hct 32.6 L MCV 77.3 L MCH 22.0 L MCHC 28.5 L RDW Std Deviation 52.1 H RDW Coeff of Naga 18.8 H Plt Count 301 MPV 10.0 Immature Gran % (Auto) 0.300 Neut % (Auto) 84.3 H Lymph % (Auto) 7.6 L Seward % (Auto) 6.4 Eos % (Auto) 1.0 Baso % (Auto) 0.4 Absolute Neuts (auto) 10.5 H Absolute Lymphs (auto) 0.94 Nucleated RBC % 0 ESR 46 H PT INR APTT Sodium 136 Potassium 4.3 Chloride 106 Carbon Dioxide 24.0 Anion Gap 6 BUN 16 Creatinine 0.90 Estim Creat Clear Calc 59.89 Est GFR (MDRD) Af Amer 81 Est GFR (MDRD) Non-Af 67 BUN/Creatinine Ratio 17.7 Glucose 136 H Lactic Acid 2.0 Calcium 8.6 C-React Prot Ext Range 18.00 H 10/15/22 23:58 WBC RBC Hgb Hct MCV MCH MCHC RDW Std Deviation RDW Coeff of Naga Plt Count MPV Immature Gran % (Auto) Neut % (Auto) Lymph % (Auto) Seward % (Auto) Eos % (Auto) Baso % (Auto) Absolute Neuts (auto) Absolute Lymphs (auto) Nucleated RBC % ESR PT 13.2 INR 1.0 APTT 28.9 Sodium Potassium Chloride Carbon Dioxide Anion Gap BUN Creatinine Estim Creat Clear Calc Est GFR (MDRD) Af Amer Est GFR (MDRD) Non-Af BUN/Creatinine Ratio Glucose Lactic Acid Calcium C-React Prot Ext Range Radiography Diagnostic Testing: Clinical Impression(s) from Imaging Studies Ankle X-Ray 10/16/22 00:03 IMPRESSION: Soft tissue swelling. No evidence of fracture. Electronically Signed: Joaquina Mayer MD at 0:42 EST , Tibia/Fibula X-Ray 10/16/22 00:04 IMPRESSION: Diffuse soft tissue swelling. Question wound lateral at the ankle. No radiographic evidence of osteomyelitis. MRI may be helpful for further evaluation. Electronically Signed: Joaquina Mayer MD at 0:46 EST , X-ray of the left tibia and fibula as well as the left ankle as interpreted by the emergency medicine physician reveals soft tissue swelling without acute fracture dislocation or signs of osteomyelitis Discharge Plan Dx/Rx/DC Orders Clinical Impression: Cellulitis of left lower extremity, Septicemia, Chronic wound of extremity, Current use of long filler cigar roller machine anticoagulation Disposition Disposition: Acute Care Hospital [facility] Discharge Date/Time: 10/16/22 02:11 What to do if you have Problems For any increased pain, shortness of breath, bleeding, nausea or vomiting, chestpain, or any unexpected problems, contact your Primary Care Provider. Call [facility] ([phone]) or report to the closest Emergency Room. Call 911 if necessary. 10/16/22 0340 <Electronically signed by David Felipe DO> Cosigner Signature (if applicable): CC: GINO Thorpe Varsha ~ Signed [facility] Work Phone: [phone] 823-116912-29-2022 Telephone encounter Note* Telephone Encounter - Diana Tang PA-C - 09/28/2022 4:27 PM EST Called and spoke with patient. She had some questions about upcoming pulmonology appointment. She is feeling less short of breath at rest but still has problems getting up and moving around getting short or breath. Her inhaler is helping. She will go to follow up with policy specialist next week who will run more testing for her b/l PEs [facility] Work Phone: [phone]) 580-460312-29-2022 Miscellaneous Notes* Telephone Encounter - Diana Tang PA-C - 09/28/2022 4:27 PM EST Called and spoke with patient. She had some questions about upcoming pulmonology appointment. She is feeling less short of breath at rest but still has problems getting up and moving around getting short or breath. Her inhaler is helping. She will go to follow up with policy specialist next week who will run more testing for her b/l PEs * Telephone Encounter - Cindy Tovar - 09/28/2022 1:55 PM EST Pt called in requesting to speak with Diana, stated she had some questions. Please Advise. * Telephone Encounter - Diana Tang PA-C - 09/26/2022 2:57 PM EST Called patient and LVM. Pictures look better. Wanted to know how she was feeling overall. * Telephone Encounter - Diana Tang PA-C - 09/26/2022 2:56 PM EST I will give her a call. She doesn't have mychart * Telephone Encounter - Diana Tang PA-C - 09/26/2022 2:54 PM EST Thank you, I will send patient mychart message. Looks like it is improving since last time! * Telephone Encounter - Andie Amador MA - 09/26/2022 2:11 PM EST Jess is out this week. Jennifer is out today. I wanted someone to lay eyes on this and advise. * Telephone Encounter - Andie Amador MA - 09/26/2022 8:25 AM EST Images from the original note were not included. * Telephone Encounter - Andie Amador MA - 09/26/2022 8:25 AM EST Images from the original note were not included. * Telephone Encounter - Brian Michelle - 09/25/2022 2:47 PM EST Name of caller: Siobhan Contact phone number: [phone] Relationship to Patient: patient Provider: Jess Practice: Ortho Chief Complaint/Reason for Call: Pt called stating that she sent pictures of her leg to the ortho email to added to her chart.Please advise pt of receipt Best time of day caller can be reached: AM Patient advised that office/PCP has 24-48 business hours to return their call: Yes documented in this encounterSGenesis [id number] Telephone encounter Note* Telephone Encounter - Cindy Tovar - 09/28/2022 1:55 PM EST Pt called in requesting to speak with Diana, stated she had some questions. Please Advise. [id number] Telephone encounter Note* Telephone Encounter - Diana Tang PA-C - 09/26/2022 2:57 PM EST Called patient and LVM. Pictures look better. Wanted to know how she was feeling overall. [id number] Telephone encounter Note* Telephone Encounter - Diana Tang PA-C - 09/26/2022 2:56 PM EST I will give her a call. She doesn't have mychart [id number] Telephone encounter Note* Telephone Encounter - Diana Tang PA-C - 09/26/2022 2:54 PM EST Thank you, I will send patient mychart message. Looks like it is improving since last time! [id number] Telephone encounter Note* Telephone Encounter - Andie Amador MA - 09/26/2022 2:11 PM EST Jess is out this week. Jennifer is out today. I wanted someone to lay eyes on this and advise. [facility] [id number] Telephone encounter Note* Telephone Encounter - Andie Amador MA - 09/26/2022 8:25 AM EST Images from the original note were not included. [facility] [id number] Telephone encounter Note* Telephone Encounter - Andie Amador MA - 09/26/2022 8:25 AM EST Images from the original note were not included. [facility] [id number] Telephone encounter Note* Telephone Encounter - Brian Michelle - 09/25/2022 2:47 PM EST Name of caller: Siobhan Contact phone number: [phone] Relationship to Patient: patient Provider: Jess Practice: Ortho Chief Complaint/Reason for Call: Pt called stating that she sent pictures of her leg to the ortho email to added to her chart.Please advise pt of receipt Best time of day caller can be reached: AM Patient advised that office/PCP has 24-48 business hours to return their call: Yes [facility]05-04-2022 NoteHospitalist Discharge Summary Siobhan Haas : 1960 Admit date: 01/21/2022 Discharge date: 02/01/2022 Admitting Physician: Kiara Amaro MD Primary Care Physician: Oj Maddox, CABLE DRILLER - TRIM STENCIL MAKER Visit Status: Admission Code Status: Full Code Discharge Diagnoses: 1. Sepsis due to LLE cellulitis and necrotising fasciitis s/p debridement and I&D, and fascitomy with wound vac placement; s/p washout with wound vac change in the OR on 01/31/22 unable to determine if related to recent procedure 2. Rhinovirus infection 3. EUSEBIA-resolved 4. CKD 2 5. Hypertension 6. FAY: on BIPAP qhs 7. Morbid obesity 8. Chronic anxiety 9. Asthma Diagnosis Date ? 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 ([facility]) 07/27/2020 ? Asthma ? Cellulitis ? Constipation ? Depression ? Fibromyalgia ? GERD (gastroesophageal reflux disease) ? Hx of right BKA ([facility]) ? Hypertension ? Morbidly obese ([facility]) 02/03/2019 BMI 50.52 ? On home O2 ? FAY treated with BiPAP ? Osteoarthritis ? Osteomyelitis of right foot ([facility]) SCHEDULED FOR THE SURGERY ON 02/11/2019 ? Seasonal allergies ? Shortness of breath ? URSULA (stress urinary incontinence, female) ? Vertigo Procedures: s/p debridement and I&D, and fascitomy with wound vac placement; s/p washout with wound vac change in the OR on 01/31/22 Hospital Course: See discharge diagnoses list above and medication adjustments below in med rec.The patient is discharged in improved and stable condition. Consults: IP CONSULT TO CASE MANAGEMENT PHARMACY TO DOSE VANCOMYCIN IP CONSULT TO PLASTIC SURGERY IP CONSULT TO INFECTIOUS DISEASES IP CONSULT TO HOME CARE NEEDS Discharge Instructions: Diet: ADULT DIET; Regular ADULT ORAL NUTRITION SUPPLEMENT; AM Snack, PM Snack; Wound Healing Oral Supplement Activity: as tolerated Recommended Outpatient Tests: Disposition: Patient discharged in stable condition to home with [facility] services. Greater than 30 minutes spent discharging the patient and coming up with patient discharge plan. Vitals: BP (!) 158/80 Pulse 84 Temp 97.5 ?F (36.4 ?C) (Temporal) Resp 18 Ht 5' 7 (1.702 m) Wt (!) 340 lb (154.2 kg) SpO2 95% BMI 53.25 kg/m? Pulse Ox: SpO2 Av.7 % Min: 92 % Max: 96 % Supplemental O2: O2 Flow Rate (L/min): 6 L/min General appearance: No apparent distress, appears stated age and cooperative with exam HEENT: Normal cephalic, atraumatic without obvious deformity. Pupils equal, round, and reactive to light. Extra ocular muscles intact. Conjunctivae/corneas clear. Neck: Supple, with full range of motion. No jugular venous distention. Trachea midline. No lymphadenopathy. Respiratory: Normal respiratory effort. Clear to auscultation, bilaterally without Rales/Wheezes/Rhonchi. Cardiovascular: Regular rate and rhythm with normal S1/S2 without murmurs, rubs or gallops. Abdomen: Soft, non-tender, non-distended with normal bowel sounds. No rebound or guarding. Musculoskeletal: Right BKA; LLE wrapped Skin: Skin color, texture, turgor normal. No rashes or lesions. Neurologic: Neurovascularly intact without any focal sensory/motor deficits. Cranial nerves: II-XII intact, grossly non-focal. Discharge Medications: Medication List START taking these medications acetaminophen 325 MG tablet Commonly known as: TYLENOL Take 2 tablets by mouth every 6 hours as needed for Pain hydrocortisone 2.5 % cream Apply topically 2 times daily. linezolid 600 MG tablet Commonly known as: ZYVOX Take 1 tablet by mouth every 12 hours for 10 doses CONTINUE taking these medications amitriptyline 50 MG tablet Commonly known as: ELAVIL benzonatate 100 MG capsule Commonly known as: TESSALON budesonide 0.25 MG/2ML nebulizer suspension Commonly known as: PULMICORT busPIRone 10 MG tablet Commonly known as: BUSPAR citalopram 40 MG tablet Commonly known as: CELEXA Claritin 10 MG tablet Generic drug: loratadine cyclobenzaprine 10 MG tablet Commonly known as: FLEXERIL famotidine 20 MG tablet Commonly known as: PEPCID fluticasone 50 MCG/ACT nasal spray Commonly known as: FLONASE furosemide 40 MG tablet Commonly known as: LASIX gabapentin 600 MG tablet Commonly known as: Neurontin Take 1 tablet by mouth 3 times daily for 31 days. ipratropium 0.02 % nebulizer solution Commonly known as: ATROVENT meloxicam 7.5 MG tablet Commonly known as: MOBIC methylphenidate 20 MG tablet Commonly known as: RITALIN montelukast 10 MG tablet Commonly known as: SINGULAIR omeprazole 40 MG delayed release capsule Commonly known as: PRILOSEC oxyCODONE 5 MG immediate release tablet Commonly known as: ROXICODONE potassium chloride 20 MEQ extended release tablet Commonly known as: KLOR-CON M pramipexole 1.5 MG tablet Commonly known as: MIRAPEX pseudoephedrine-guaiFENesin 60-600 MG per extended release tablet Commonly known as: MUCINEX D valsartan 160 MG tablet Commonly kno (more content not included)...[facility]04-28-2022 Note [facility] Department of Radiology Post Procedure Progress Note Pre-Procedure Diagnosis: IV access required. Procedure Performed: Right IJ triple lumen catheter. Anesthesia: Local Findings: Widely patent right IJ. Outcomes: Successful line placement. The tip is in the SVC. It is ready for use. Estimated Blood Loss: Minimal Immediate Complications: None Final report to follow in Radiology Results. [facility]04-13-2022 History of Present illness Narrative* Jenae Wright RN - 01/11/2022 4:20 PM EDT Phase II indicated, pt awake and talking, VS stable, pt dressed and ambulated to wheelchair withoutdifficulty, home going instructions reviewed with patient and s/o, verbal understanding demonstrated and opportunity given for questions. Pt. assisted to bathroom, voided tolerated crackers and rosemary simin. And reports ready to go home. * Jenae Wright RN - 01/11/2022 4:11 PM EDT Pt. Sitting up in bed eating crackers and drinking rosemary simin. Pt. Chronic pain is 4/10, and that is current pain level. Pt. Is satisfied. * Jenae Wright RN - 01/11/2022 3:31 PM EDT Pt received from OR via cart, spont. Resp. With TELEPHONE MAINTAINER in attendance. Placed on monitor. Monitor alarms on in PACU Pt. Responds to voice. Simple O2 mask on. documented in this [facility] Work Phone: [phone] Hospital Discharge instructions* Instructions* Diana Tang PA-C - 01/11/2022 Please leave the wound vac on, clean, dry and intact until follow up appointment in 1 week. It should stay at continuous suction 125 mmHg. You should leave the thigh bandage on, dry and intact until your follow up appointment. If it leaks/bleeds through the bandage you can reinforce this with gauze and gaurav bandage. You can WBAT with the operative extremity. You can take the prescribed Percocet as needed with pain relief after surgery. documented [facility] this [facility] Work Phone: 1(853) 197-723403-21-2022 History of Present illness Narrative* Didi Aguilar RN - 12/19/2021 11:55 AM EDT Pt and family verbalized understanding of recovery instructions, pt verbalized a readiness to be discharged home. Pt discharged home via wheelchair accompanied by RN/volunteer. Pt has had all their belongings returned to them at discharge * Didi Aguilar RN - 12/19/2021 11:34 AM EDT Pt tolerating sips of rosemary simin and crackers, pt VS stable, pt friend Jordyn at bedside . Pt demonstrated use of incentive spirometer and verbalized understanding , Will monitor * Didi Aguilar RN - 12/19/2021 10:53 AM EDT Pt received from OR via cart, spont. Resp. With TELEPHONE MAINTAINER in attendance. Placed on monitor. Monitor alarms on in PACU * Dana Dumont RN - 12/19/2021 9:15 AM EDT ARRIVE 2 HOURS BEFORE SURGERY 0715 BRING A PHOTO ID AND INSURANCE CARD. HAVE A RESPONSIBLE ADULT THAT CAN TAKE YOU HOME AND STAY WITH YOU FOR 24 HOURS NO FOOD AFTER MIDNIGHT THE NIGHT BEFORE SURGERY, YOU MAY HAVE CLEAR FLUIDS UP UNTIL 2 HOURS BEFORE SURGERY. IF DIABETIC PLEASE AVOID HIGH SUGAR DRINKS WEAR LOOSE COMFORTABLE CLOTHING YOU CAN GO HOME IN. LEAVE ALL VALUABLES AT HOME, YOU MAY NEED A CO PAY FOR YOUR PRESCRIPTIONS. DO NOT USE ALCOHOL , RECREATIONAL DRUGS OR TOBACCO PRODUCTS FOR 24 HOURS BEFORE SURGERY. PLEASE WRITE DOWN ANY QUESTIONS YOU HAVE. DO NOT USE IBUPROFEN 24 HOURS BEFORE SURGERY. NO ALEVE FOR 3 DAYS. YOU MAY TAKE TYLENOL IF NEEDED HOLD MELOXICAM (MOBIC) FOR 3 DAYS BEFORE SURGERY BRING YOUR RESCUE INHALER WITH YOU TO SURGERY HOLD VALSARTAN THE MORNING OF OF SURGERY HOLD FUROSEMIDE (LASIX) DAY OF SURGERY Hold aspirin for 5 days before surgery Hold all vitamins and supplements 5 days before surgery Take a shower with an antibacterial soap the night before and morning of surgery. [place] tour teeth,floss and use a mouthwash. No powder ,lotion , deodorant ,make up or hair spray documented in this [facility]SUM[facility] Work Phone: [phone] Hospital Discharge instructions* Instructions* Diana Tang PA-C - 12/19/2021 Bandage: Keep wound vac on and set at continuous suction at 125 mmHg at all times. There is white gauze bhavana gaurav bandage over the wound vac material. Please keep the dressing on, clean and dry until follow up. You will see us 2 weeks from the time of surgery. You will have wound vac changes 2 times weekly. Please send photos with every wound vac change to our email address for review. Please send clinical photos to [email or web address] Please include your name and date of in the subject line of e-mail Swelling control: Elevate and Ice for pain control. You may take the prescribed Percocet as needed for pain relief after surgery. This can be alternated with ibuprofen 600 mg every 8 hours as needed to decrease pain and swelling. Immobilization: Encourage range of motion toes,ankle, knee and hip in confines of bandage. Weightbearing: WBAT on operative extremity. You should walk 10-15 minutes every hour you are awake. documented in this [facility] Work Phone: [phone]) [phone] NotePatient Name: Siobhan Haas Date of : 1960 Date: 11/22/21 Discharge Summary Admit date: 11/17/2021 Discharge date and time: 11/21/2021 2:56 PM Admitting Physician: Rusty Bassett MD Admission Diagnoses: Dehiscence of LEFT ankle incision Discharge Diagnoses: Same Problem List: Active Problems: Dehiscence of closure of skin, sequela Resolved Problems: * No resolved hospital problems. * Operative Procedures: Irrigation and debridement of left ankle incision with wound vacuum application 11/17/21 Repeat irrigation and debridement left ankle with closure 11/19/21 Hospital Course: Pt was admitted post-operatively after undergoing the first surgery stated above without complication. She underwent the second procedure without complication. Infectious disease, internal medicine, and therapy were consulted. Pt was discharged in improved condition compared to preoperative condition. Disposition: Per SW - home per patient's wishes Discharge Medications: Medication List CHANGE how you take these medications gabapentin 600 MG tablet Commonly known as: Neurontin Take 1 tablet by mouth 3 times daily for 31 days. What changed: ? when to take this ? additional instructions ? Another medication with the same name was removed. Continue taking this medication, and follow the directions you see here. CONTINUE taking these medications amitriptyline 25 MG tablet Commonly known as: ELAVIL aspirin 81 MG chewable tablet Take 1 tablet by mouth daily CEFAZOLIN SODIUM IV citalopram 40 MG tablet Commonly known as: CELEXA Claritin 10 MG tablet Generic drug: loratadine cyclobenzaprine 10 MG tablet Commonly known as: FLEXERIL famotidine 20 MG tablet Commonly known as: PEPCID fluticasone 50 MCG/ACT nasal spray Commonly known as: FLONASE furosemide 40 MG tablet Commonly known as: LASIX meloxicam 7.5 MG tablet Commonly known as: MOBIC montelukast 10 MG tablet Commonly known as: SINGULAIR omeprazole 40 MG delayed release capsule Commonly known as: PRILOSEC oxyCODONE-acetaminophen 5-325 MG per tablet Commonly known as: PERCOCET potassium chloride 20 MEQ extended release tablet Commonly known as: KLOR-CON M pramipexole 1.5 MG tablet Commonly known as: MIRAPEX valsartan 160 MG tablet Commonly known as: DIOVAN Ventolin HFA 108 (90 Base) MCG/ACT inhaler Generic drug: albuterol sulfate HFA STOP taking these medications ondansetron 4 MG disintegrating tablet Commonly known as: ZOFRAN-ODT Where to Get Your Medications These medications were sent to [facility] - [place], [place] - [address] - P [phone] - F [phone] [address] [place] [address] ? aspirin 81 MG chewable tablet ? gabapentin 600 MG tablet Patient Instructions: The patient will notify me for any increased bleeding, drainage, or progressively worsening pain, or other concerning symptoms. They have been instructed to report to the emergency room immediately for any chest pain or shortness of breath. Activity Precautions: -Weight Bearing: non-weightbearing left lower extremity Patient was provided with appropriate DVT prophylactic medication as well as appropriate analgesia medication. Wound Care: -Wash hands before touching or changing dressings -Do Not touch incision -Change dressing daily starting post-op day 2 and reapply dressing if leaking -If Dry, can keep open to air -OK to shower if wound is sealed/dry post-op day 3 Follow-up visit with Dr Rusty Bassett MD in 2 weeks John Hebert PGY-4 Orthopaedic Surgery 11/22/2021 9:33 AM [id number] [facility]02-01-2022 NoteDischarge Summary Siobhan Haas : 1960 ADMIT DATE: 10/25/2021 DISCHARGE DATE: 11/01/2021 PRIMARY CARE PHYSICIAN: Oj Maddox APRN - TRIM STENCIL MAKER VISIT STATUS: Admission CODE STATUS: Full Code DISCHARGE DIAGNOSES: Active Problems: Infected wound manager long term care (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 antibiotics Resolved Problems: * No resolved hospital problems. * # Left lower extremity surgical site infection?(recent hx of left peroneal tendon tenodesis with Dr. Gamino on 08/04/2021?then had infection,?status post I&D on 09/26/2021. s/p?I&D of surgical site infection with closure on 10/27.? ? # Chronic HTN # Fibromyalgia ? # Morbid obesity with likely obesity hypoventilation syndrome # Chronic hypoxia - on home O2 ? # GERD # Hx of Asthma HOSPITAL COURSE: Siobhan is a 61 y.o. female who presents to the emergency department complaining of left ankle pain.??Patient had a surgery for a tendon in her left ankle that was remote. ?Had an infection after that and was actually treated for this infection after the surgery. ?Had a wound VAC on until yesterday. ?Noted there was worsening pain and then today when she took the wound VAC off had a lot of purulent drainage come off of the woun.d. Patient admitted to the medical floor. Orthopedic surgery and infectious disease consults were placed. Patient underwent I&D. Patient has a PICC line in the right upper extremity. Patient to continue with IV antibiotics with cefazolin to complete 4-week course. Patient hemodynamically stable will be discharged home today with home health care. Follow-up with orthopedic surgery and PCP SIGNIFICANT DIAGNOSTIC STUDIES: X-ray of the lower extremity CONSULTANTS: Orthopedic surgery, infectious disease DISCHARGE MEDICATIONS: Medication List START taking these medications aspirin 81 MG chewable tablet Take 1 tablet by mouth daily Start taking on: November 02, 2021 oxyCODONE 5 MG immediate release tablet Commonly known as: ROXICODONE Take 1 tablet by mouth once for 1 dose. CHANGE how you take these medications gabapentin 600 MG tablet Commonly known as: Neurontin Take 1 tablet by mouth 3 times daily for 31 days. What changed: ? when to take this ? additional instructions CONTINUE taking these medications amitriptyline 25 MG tablet Commonly known as: ELAVIL CEFAZOLIN SODIUM IV citalopram 40 MG tablet Commonly known as: CELEXA Claritin 10 MG tablet Generic drug: loratadine cyclobenzaprine 10 MG tablet Commonly known as: FLEXERIL fluticasone 50 MCG/ACT nasal spray Commonly known as: FLONASE furosemide 40 MG tablet Commonly known as: LASIX montelukast 10 MG tablet Commonly known as: SINGULAIR omeprazole 20 MG delayed release capsule Commonly known as: PRILOSEC ondansetron 4 MG disintegrating tablet Commonly known as: ZOFRAN-ODT Take 1 tablet by mouth 3 times daily as needed for Nausea or Vomiting potassium chloride 20 MEQ packet Commonly known as: KLOR-CON pramipexole 1.5 MG tablet Commonly known as: MIRAPEX valsartan 160 MG tablet Commonly known as: DIOVAN Ventolin HFA 108 (90 Base) MCG/ACT inhaler Generic drug: albuterol sulfate HFA STOP taking these medications hydroCHLOROthiazide 12.5 MG capsule Commonly known as: MICROZIDE meloxicam 7.5 MG tablet Commonly known as: MOBIC Where to Get Your Medications These medications were sent to [id number] - [place], [place] - [address] - P [phone] - F [phone] [address] [place] [address] ? aspirin 81 MG chewable tablet Information about where to get these medications is not yet available Ask your nurse or doctor about these medications ? oxyCODONE 5 MG immediate release tablet DIET: ADULT DIET; Regular ACTIVITY: up with assist COMPLEXITY OF FOLLOW UP: [] Moderate Complexity: follow up within 7-14 calendar days (75920) [] Severe Complexity: follow up within 7 calendar days (30764) FOLLOW UP TESTING, PENDING RESULTS OR REFERRALS AT TRANSITIONAL CARE VISIT: [] Yes [] No PENDING STUDIES: No DISPOSITION: Home FACILITY/HOME CARE AGENCY NAME: Follow up with MITCH Lara CNP [address] [facility] [place] [address] In 1 week For wound re-check, For suture removal Rusty Bassett MD [address] [place] [address]/[address] [place] [address] Go on 11/04/2021 2:15PM, left ankle wound re-check MITCH Lara CNP [address] [facility] [place] [id number] Schedule an appointment as soon as possible for a visit on INSTRUCTIONS TO MA/SW: Please call patient on day after discharge (must document patient contacted within 2 business days of discharge). FOLLOW UP QUESTIONS FOR MA/SW: 1. Did you get medications filled and taking them as instructed from (more content not included)...[facility]12-29-2021 NoteInternal Medicine Discharge Summary Patient ID: Siobhan Haas Patient's PCP: MITCH Lara CNP Admit Date: 09/24/2021 Discharge Date: 09/28/2021 Admitting Physician: Art Shearer MD Discharge Physician: Nehemias Hassan MD Active Hospital Problems Diagnosis Date Noted ? Superficial incisional surgical site infection [T81.41XA] 09/24/2021 Diagnosis Date ? 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 Asthma ? Cellulitis ? Constipation ? Depression ? Fibromyalgia ? GERD (gastroesophageal reflux disease) ? Hx of right BKA (HCC) ? Hypertension ? Morbidly obese (HCC) 02/03/2019 BMI 50.52 ? On home O2 ? FAY treated with BiPAP ? Osteoarthritis ? Osteomyelitis of right foot (HCC) SCHEDULED FOR THE SURGERY ON 02/11/2019 ? Seasonal allergies ? Shortness of breath ? URSULA (stress urinary incontinence, female) ? Vertigo Code Status: Full Code Hospital Course: Siobhan is a 61 y.o. female with past medical history below who presents with chief complaint listed above. Patient presented to Ed with complaints of left ankle pain. She reports this has been ongoing for the past 1-2 weeks. Patient recently underwent left ankle peroneal tenodesis with Dr. Gamino on 08/04/21. She has been in a boot for the past several weeks to complete her recovery, however she reports that she has noticed throughout this time that the boot has been rubbing on her incision, causing significant discomfort. She reports that over the past ~2 days she has noted increased pain and swelling to the left ankle. She called the outpatient ortho office, who prescribed her PO Bactrim. She reports despite starting the Bactrim, she has continued to have these symptoms. Denies chest pain, sob, abdominal pain, nausea, vomiting, diarrhea, constipation, fevers, or chills. Will admit for further evaluation and management. Left peroneal longus tendon rupture, status post left peroneal longus tenodesis done on 08/04/2021, now admitted with postoperative wound dehiscence/left ankle surgical site infection. S/p I&D 09/26 Excisional debridement of skin Fluid overload Bronchial asthma stable Right below-knee amputation done for osteomyelitis in past FAY on nocturnal CPAP Hypertension Gastroesophageal reflux disease History of fibromyalgia Morbid Obesity History of depression She was seen by ortho, s/p excisional debridement of skin, treated with IV abx. Culture grew staph lugdunensis. Deescalate abx to PO doxycycline for 5 more days per ID. Follow up with ortho as instructed Patient was diuresed with one dose of IV lasix for fluid overload, she improved to her baseline volume status. consitnue lasix PRN at home. Consult(s): PHARMACY TO DOSE VANCOMYCIN IP CONSULT TO INFECTIOUS DISEASES IMAGINGS: XR CHEST PORTABLE Final Result XR ANKLE LEFT (MIN 3 VIEWS) Final Result XR FOOT LEFT (MIN 3 VIEWS) Final Result Discharged Condition: Stable Disposition: Home PHYSICAL EXAM: Vitals: BP (!) 146/108 Pulse 74 Temp 96.9 ?F (36.1 ?C) (Temporal) Resp 18 Ht 5' 7.01 (1.702 m) Wt (!) 320 lb (145.2 kg) SpO2 97% BMI 50.11 kg/m? Temp (24hrs), Av.3 ?F (36.3 ?C), Min:96.9 ?F (36.1 ?C), Max:97.8 ?F (36.6 ?C) Patient seen and examined, I was wearing N95 mask throughout the patient encounter The physical examination in the discharge summary is in conjunction with any previous daily progress. General appearance: No apparent distress Respiratory: Normal respiratory effort. bilaterally without Rales/Wheezes/Rhonchi. Cardiovascular: Regular rate and rhythm, normal S1/S2 Abdomen: Soft, non-tender, non-distended, normal bowel sounds. Extremity: right BKA, LLE dressing dry and clean Discharge Diet: ADULT DIET; Regular ADULT ORAL NUTRITION SUPPLEMENT; Breakfast; Low Calorie/High Protein Oral Supplement Discharge Medications: Medication List START taking these medications doxycycline hyclate 100 MG tablet Commonly known as: VIBRA-TABS Take 1 tablet by mouth 2 times daily for 5 days oxyCODONE 5 MG immediate release tablet Commonly known as: ROXICODONE Take 1 tablet by mouth every 6 hours as needed for Pain for up to 7 days. CHANGE how you take these medications gabapentin 600 MG tablet Commonly known as: Neurontin Take 1 tablet by mouth 3 times daily for 31 days. What changed: Another medication with the same name was removed. Continue taking this medication, and follow the directions you see here. CONTINUE taking these medications amitriptyline 25 MG tablet Commonly known as: ELAVIL aspirin EC 81 MG EC tablet Take 1 tablet by mouth daily citalopram 40 MG tablet Commonly known as: CELEXA Claritin 10 MG tablet Generic drug: loratadine cyclobenzaprine 10 MG tablet Commonly known as: FLEXERIL fluticasone 50 MCG/ACT nasal spray Commonly known as: FLONASE furosemide 40 MG tablet Commonly known as: L (more content not included)...[facility]12-25-2021 NoteEmergency Medicine Attending Note I performed a history and physical examination on this patient and discussed the management plans with the resident. Diagnostic, treatment, and disposition decisions were made by me in conjunction with the resident. I also supervised jose portions of any procedures performed by the resident. For all further details of the patient's emergency department visit, please see their documentation. History 61-year-old female presents complaining of left ankle pain and swelling. Had surgery on August 04. Has had swelling and pain since. no interval trauma. Called her orthopedic surgery coverage who told her to come the emergency department for IV antibiotics. Patient concerned because she had similar problems on her now amputated right leg. Exam Not febrile, not toxic, erythema and swelling over the lateral aspect of her left ankle without crepitance, full range of motion, distal neurovascular intact, no proximal streaking Medical Decision Making / ED Course Care coordination with the orthopedic and hospitalist service. Patient agrees to hospitalization for antibiotics. No signs of systemic toxicity. Impression Postop pain Plan Hospitalization (Please note that portions of this note may have been completed with a voice recognition program. Efforts were made to edit the dictations but occasionally words are mis-transcribed.) MD Rigo Galan MD 09/24/21 1818[facility]12-08-2021 Evaluation + Plan note Diagnostic Tests Pending * [facility] Send Out (Non-Blood Specimens) 09/07/21 * Histoplasma Ab, ID 09/07/21 Future Scheduled Tests Radiology* XR Chest 2 Views (PA & Lateral) 09/06/21 * XR Hip Minimum 2 Views Left 10/05/20 * MA Mammo Screening Bilateral w/ Alo 01/28/21 [facility] 12-07-2021 Evaluation + Plan note Future Scheduled Tests Laboratory* Lipid Profile 09/22/22 * Microalbumin Level Urine 09/22/22 * Vitamin D Level 09/22/22 * Complete Metabolic Panel 09/22/22 Radiology* XR Chest 2 Views (PA & Lateral) 09/06/21 [facility] 11-04-2021 History of Present illness Narrative* Didi Aguilar RN - 08/04/2021 12:09 PM EDT Pt and family verbalized understanding of recovery instructions, pt verbalized a readiness to be discharged home. Pt discharged home via wheelchair accompanied by RN/volunteer. Pt has had all their belongings returned to them at discharge * Didi Aguilar RN - 08/04/2021 11:49 AM EDT Pt tolerating sips of rosemary simin and crackers, pt family at bedside, pt denies nausea at this time,will monitor * Didi Aguilar RN - 08/04/2021 11:15 AM EDT Pt received from OR via cart, spont. Resp. With TELEPHONE MAINTAINER in attendance. Placed on monitor. Monitor alarms on in PACU documented in this [facility] Work Phone: 1(498) 820-631211-04-2021 Hospital Discharge instructions* Discharge Instr - Activity* Jennifer Mata PA - 08/04/2021 9:47 AM EDT Weight-bearing and post-operative activity Dr Bassett wants you to be nonweight bearing on the Left lower extremity except for transfers. You will continue this weight bearing restriction until your 2 week followup and then your ability to put weight on the operative extremity will be updated. If you have any problems maintaining this weight bearing status please call the office so that appropriate instructions can be given. Dr. Bassett wants you to get up once per hour during the day to move around for a few minutes while following the above weight bearing orders. He does not want you to be in bed or on a couch all day not getting up. Getting up and moving once per hour helps to promote blood flow and is one way of trying to prevent a blood clot. Remember that when you get up it is normal for your foot/toes to change color and for you to feel fluid, pressure or throbbing (your heart beat) in your foot or toes. When you return to sitting down or laying down elevate your foot as it will lessen your swelling and be more comfortable. If you are having a hard time moving around during the day, let Dr Bassett know. * Discharge Instr - Diet* Jennifer Mata PA - 08/04/2021 9:47 AM EDT Good nutrition is important when healing from an illness, injury, or surgery. Follow any nutrition recommendations given to you during your hospital stay. If you were given an oral nutrition supplement while in the hospital, continue to take this supplement at home. You can take it with meals, in-between meals, and/or before bedtime. These supplements can be purchased at most local grocery stores, pharmacies, and [employer]-stores. If you have any questions about your diet or nutrition, call the hospital and ask for the dietitian. * Additional Instructions* Jennifer Mata PA - 08/04/2021 Images from the original note were not included. If you have any questions please call Dr Bassett's office ([phone]), all calls after 4:30 pm or anytime on Sunday or Sunday go through the answering service. The nurse at the answering service will triage your call to determine if the at night on-call physician needs to be called (this may notbe Dr Bassett but one of his partners if Dr Bassett is not school transportation director). Any calls regarding medication refills will be handled by the office during usual business hours Sunday-Sunday. If you call for medication refills after hours or on the weekend you will have to wait until the next business day. BANDAGE INSTRUCTIONS: Keep your bandage clean and dry. Do not put anything down under the dressings to scratch. If your bandage gets wet or starts to feel uncomfortable call Dr Bassett's office immediately ([phone]). Leave the dressing in place, you do not need to change it unless you are instructed to do so by . If there are problems with the dressing (it feels to tight, too loose, it gets wet) call 's office. If you see any blood on the bandage reinforce it on the surface with gauze and an gaurav bandage and call Dr Bassett's office. Please call if you have any questions concerning your bandage/splint. ACTIVITY: The first 2 weeks after surgery is the most important time for healing. Please take this time to rest and give yourself the best chance to have a good outcome. Doing too much can affect your healing.If you are not sure how active you can be please call Dr Bassett. You should get up and move around once or twice an hour based on your comfort level. You are not prashant at bed rest meaning you need to get up and move around in order to prevent blood clots. It is OK to wiggle your toes and you can contract your calf muscle as well. When you put your foot down it is normal for the toes to turn a bluish or purple color. Once you elevate the foot for a few minutes a normal pink color should return underneath the toenails. If the color does not change within [address] Bassett's office. Keep your foot/ankle elevated for comfort. Elevation is the best way to alleviate pain and decreaseyour swelling (swelling causes pain by itself). Elevation means keeping the toes at the level of your nose. If your leg is not elevated to that height then it is not truly elevated. MEDICATIONS You have been given a prescription for a narcotic medication that is intended for postoperative pain control. This medication should be used judiciously to try and minimize your discomfort after surgery. The medication will not relieve all of your pain and you should not take large amounts of the medication in an attempt to be pain free. Please understand that narcotic medications can be addictive and they are intended to decrease but not eliminate your pain and should therefore be used in moderation. If you have questions regarding taking the narcotic medication and other medications that you are currently on please call the office. You cannot drive or operate machinery while taking the narcotic medication. You should not drink alcohol or use recreational drugs while taking the narcotic medication.[facility] restricts the amount of pain pills that can be legally prescribed and no more than one prescription in a week can be given. If you require a refill of the pain medication it requires that someone come to the office in person as it cannot be called in to the pharmacy or E-prescribed. Please understand that there is a limit to the total amount of pain medication that canbe prescribed so make every effort to take it only when needed. Unless otherwise instructed by Dr Bassett you can take an over the counter anti-inflammatory to help with your pain as well. This includes but is not limited to Ibuprofen, Advil, Motrin, Alleve, etc. A prescription for baby aspirin was sent to your pharmacy and Dr. Bassett wants you to take one tablet once a day. If you have any issues with the medication call Dr. Bassett. WEIGHTBEARING INSTRUCTIONS Dr Bassett wants you to be nonweight bearing on the Left lower extremity except for transfers. You will continue this weight bearing restriction until your 2 week followup and then your ability to put weight on the operative extremity will be updated. If you have any problems maintaining this weight bearing status please call the office so that appropriate instructions can be given. FREQUENTLY ASKED QUESTIONS If I am supposed to be non-weight bearing on the operative foot/ankle can I still rest the foot on the ground when I am sitting? Yes, it is OK to rest your operative foot on the ground when you are sitting. Is it normal to feel a mendez of fluid or pressure in my foot/ankle when I put it down? Yes, after most foot, ankle or leg surgeries it is very common to feel immediate swelling or pressure in your foot, ankle and leg. Is it OK to put ice on my foot/ankle to help with the swelling and pain? After foot/ankle surgery elevating the foot/ankle is much better at relieving pain and swelling than ice. In many cases you bandage prevents the cold from getting to your skin. At your 2 week visit when your bandage is removed, icing the foot/ankle works much better and you can start it then. If I received a nerve block before surgery, how long will it last? A single shot nerve block can last anywhere from 8 hours to 36 hours on average, some patients' single shot blocks stop sooner and some can go a little longer. A catheter block (pain ball) lasts longer when you have it dialed down and it runs out faster if you have it dialed up. For most patients it lasts for a day and a half to 3 days. Can I shower or bathe after surgery? Yes, you can shower or bathe after surgery but you have to put a plastic bag over your splint/dressing to keep the splint/bandage absolutely dry. The splint/bandage is like a sponge and any water that gets in can damage your skin or cause your incision/incisions to open up and get infected. If your splint/bandage gets water in it, call Dr. Bassett's office ([phone]) immediately and you will beinstructed which office can see your the quickest to change your splint/bandage. [facility] Work Phone: 1(434) 946-988110-28-2021 Hospital Discharge instructions* Instructions* Elin Salter RN - 07/28/2021 HOLD FUROSEMIDE (LASIX) DAY OF SURGERY HOLD HYDROCHLOROTHIAZIDE THE MORNING OF SURGERY HOLD MELOXICAM (MOBIC) FOR 3 DAYS BEFORE SURGERY HOLD IBUPROFEN FOR 24 HOURS BEFORE SURGERY BRING YOUR RESCUE INHALER WITH YOU TO SURGERY BE SURE TO USE YOUR CPAP MAY TAKE ALL OTHER MEDICATIONS PRESCRIBED ARRIVE 2 HOURS PRIOR TO SURGERY BE AT THE HOSPITAL AT 8:00 am Use door number 2 Check in at registration using photo ID and insurance card Have a responsible adult that will be able to take you home and will be able to stay with you when you are home. NO FOOD AFTER MIDNIGHT THE NIGHT BEFORE SURGERY This includes candy, gum, and mints MAY have CLEAR LIQUIDS (WATER, APPLE JUICE, CRANBERRY JUICE, BLACK COFFEE, TEA, CARBONATED POP GATORADE) To drink until arrival time for surgery *(NOTE: IF YOU ARE A DIABETIC AVOID HIGH SUGAR BEVERAGES)* Wear loose comfortable clean clothing that you can go home in Leave all jewelry, contact lenses and valuables at home ONLY ONE visitor is permitted at this time Bring printed medication list with you Write the date and times of last dose DO NOT USE alcohol, recreational drugs or tobacco products for 24 hours before surgery Please write down any questions that you may have for your surgeon, anesthesiologist, Etc. documented in this [facility] Work Phone: Evaluation + Plan note Future Appointments Appointment Date:10/23/2023 08:40:00 AM Scheduled Provider:OJ MADDOX APRN, CNP Location:[facility] Appointment Type:PC OV Follow Up Future Scheduled Tests Laboratory* C-Reactive Protein 08/29/22 * Thyroid Stimulating Hormone 08/29/22 * A1C Hemoglobin 10/25/23 * Complete Blood Count 08/29/22 * Complete Blood Count 10/25/23 * Lipid Profile 10/25/23 * Lipid Profile 09/22/22 * Albumin/Creatinine Ratio, Random Urine 04/17/23 * Albumin/Creatinine Ratio, Random Urine 10/25/23 * Microalbumin Level Urine 09/22/22 * Vitamin D Level 10/25/23 * Vitamin D Level 09/22/22 * Complete Metabolic Panel 08/29/22 * Complete Metabolic Panel 10/25/23 * Complete Metabolic Panel 09/22/22 * N-Terminal proBNP 08/29/22 Radiology* NM Myocardial Spect Rest/Stress 09/12/22 * XR Chest 2 Views (PA & Lateral) 08/14/22 [facility] Evaluation note* Diagnosis Acute left ankle pain documented in this encounter [facility] Work Phone: Evaluation note* Diagnosis Tear of peroneal tendon, left, subsequent encounter documented in this encounter [facility] Work Phone: Evaluation note* Diagnosis Complication associated with peripherally inserted central catheter (PICC), initial encounter- Primary documented in this encounter [facility] Work Phone: Evaluation note* Diagnosis Dehiscence of closure of skin, sequela- Primary Infected wound Posttraumatic wound infection not elsewhere classified documented in this encounter [facility] Work Phone: Evaluation note* Diagnosis S/P split thickness skin graft- Primary documented in this encounter [facility] Work Phone: Evaluation note* Diagnosis Onset Date Resolution Status Asthma exacerbation resolved [facility] Work Phone: Evaluation note* Diagnosis Onset Date Resolution Status Bilateral pulmonary embolism acute Cellulitis of left lower extremity acute NAIR (dyspnea on exertion) ac patric Hypoxia acute Tachypnea acute Hypertension chronic [facility] Work Phone: Evaluation note* Diagnosis Onset Date Resolution Status Bilateral pulmonary embolism acute Cellulitis of left lower extremity acute NAIR (dyspnea on exertion) ac patric Hypoxia acute Sepsis acute Tachypnea acute Hypertension [facility] Work Phone: Evaluation note* Diagnosis Onset Date Resolution Status Bilateral pulmonary embolism acute Cellulitis of left lower extremity acute Hypertension chronic Hypoxia resolved Sepsis resolved Asthma acute Bilateral pulmonary embolism acute Cellulitis of left lower extremity acute Current use of detention anticoagulation acute Septicemia acute Chronic wound of extremity c hronic [facility] Work Phone: Evaluation note* Diagnosis Onset Date Resolution Status Bilateral pulmonary embolism acute Cellulitis of left lower extremity acute Hypertension chronic Hypoxia resolved Sepsis resolved Asthma acute Bilateral pulmonary embolism acute Cellulitis of left lower extremity acute Septicemia resolved [facility] Work Phone: Evaluation note* Diagnosis Primary osteoarthritis, left shoulder- Primary Acute bursitis of left shoulder [facility]* Diagnosis Complication of urinary electronic stimulator device, unspecified complication, initial encounter (HCC)- Primary documented in this encounter [facility] note* Diagnosis Primary osteoarthritis, left shoulder- Primary Unspecified complication of genitourinary prosthetic device, implant and graft, initial encounter (HCC) documented in this encounter [facility] note* Diagnosis 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, initial encounter (HCC)- Primary Unspecified complication of genitourinary prosthetic device, implant and graft, initial encounter (HCC) [facility]* Diagnosis Primary osteoarthritis, left shoulder- Primary Unspecified complication of genitourinary prosthetic device, implant and graft, initial encounter (HCC) documented in this encounter [facility] note* Diagnosis Osteoarthritis of AC (acromioclavicular) joint- Primary Chronic pain of both shoulders Unspecified complication of genitourinary prosthetic device, implant and graft, initial encounter (HCC) documented in this encounter [facility] note* Diagnosis 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, subsequent encounter (HCC)- Primary Unspecified complication of genitourinary prosthetic device, implant and graft, initial encounter (HCC) documented in this encounter [facility] note* Diagnosis Pain from implanted hardware, initial encounter- Primary documented in this encounter [facility] note* Diagnosis 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, initial encounter (HCC)- Primary 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, initial encounter (HCC) documented in this encounter [facility] note* Diagnosis 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, initial encounter ([facility])- Primary documented in this encounter [facility] note* Diagnosis 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, initial encounter ([facility])- Primary documented in this encounter [facility] note* Diagnosis 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, subsequent encounter ([facility])- Primary documented in this encounter [facility] note* Diagnosis 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, subsequent encounter (HCC)- Primary 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, initial encounter (HCC) 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, initial encounter (HCC) documented in this encounter [facility] note* Diagnosis 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, subsequent encounter ([facility])- Primary documented in this encounter [facility] note* Diagnosis 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, initial encounter ([facility])- Primary documented in this encounter [facility] note* Diagnosis 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, initial encounter (HCC)- Primary 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, initial encounter (HCC) 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, initial encounter (HCC) Lack of intravenous access Postoperative pain Other acute postoperative pain 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, subsequent encounter (HCC) Chronic obstructive lung disease (HCC) Chronic airway obstruction, not elsewhere classified HLD (hyperlipidemia) Other and unspecified hyperlipidemia HTN (hypertension) Unspecified essential hypertension Obstructive sleep apnea syndrome Obstructive sleep apnea (adult) (pediatric) Gastroesophageal reflux disease Esophageal reflux documented in this encounter [facility] note* Diagnosis 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, subsequent encounter (HCC)- Primary [facility]* Diagnosis Necrotizing soft tissue infection- Primary senior care (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 antibiotics [facility]* Diagnosis Onset Date Resolution Status Asthma exacerbation acute [facility] Work Phone: Evaluation note* Diagnosis 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, subsequent encounter (HCC)- Primary documented [facility]* Diagnosis Chronic pain in right shoulder- Primary Pain in joint, shoulder region documented in this [facility]* Diagnosis Osteoarthritis of bilateral glenohumeral joints- Primary Left shoulder pain Pain in joint, shoulder region [facility]* Diagnosis Left shoulder pain Pain in joint, shoulder region Arthritis of left glenohumeral joint documented in [facility]* Diagnosis Primary osteoarthritis, left shoulder [facility]* Diagnosis Primary osteoarthritis, left shoulder [facility]* Diagnosis Arthritis of right shoulder region [facility]* Diagnosis Left leg cellulitis- Primary Infected wound Posttraumatic wound infection not elsewhere classified [facility]* Diagnosis Stump pain (HCC)- Primary Other late amputation stump complication Stump pain (HCC) Other late amputation stump complication Below-knee amputation of left lower extremity with complication, subsequent encounter (HCC)- Primary documented [facility]* Diagnosis Abrasion of lower leg with infection, initial encounter- Primary Abrasion of lower leg with infection, initial encounter Superficial incisional surgical site infection Cellulitis of left lower limb Stump pain (HCC) Other late amputation stump complication PE (pulmonary thromboembolism) (HCC) Chronic pulmonary embolism [facility]* Diagnosis Surgical wound infection- Primary Other postoperative infection Lymphedema Other noninfectious lymphedema Surgical wound infection Other postoperative infection Superficial venous thrombosis of left upper extremity Stump pain (HCC) Other late amputation stump complication HLD (hyperlipidemia) Other and unspecified hyperlipidemia Superficial venous thrombosis of left upper extremity [facility]* Diagnosis Cellulitis of left lower extremity- Primary Cellulitis of left lower extremity Surgical wound infection Other postoperative infection Stump pain (HCC) Other late amputation stump complication Anxiety Anxiety state, unspecified Surgical wound infection Other postoperative infection HLD (hyperlipidemia) Other and unspecified hyperlipidemia History of right below knee amputation (HCC) Pansystolic murmur Obstructive sleep apnea syndrome Obstructive sleep apnea (adult) (pediatric) HTN (hypertension) Unspecified essential hypertension Gastroesophageal reflux disease Esophageal reflux Difficult intubation [facility]* Diagnosis 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, initial encounter ([facility])- [facility] Diagnosis Fibromyalgia Unspecified myalgia and myositis Suprascapular neuropathy, unspecified laterality documented in this encounter [facility] Work Phone: Evaluation note* Diagnosis Intractable neuropathic pain of upper extremity- Primary Chronic pain of both shoulders Morbid obesity (Multi) Morbid obesity Obstructive sleep apnea Obstructive sleep apnea (adult) (pediatric) documented in this encounter [facility] Work Phone: Evaluation note* Diagnosis Fibromyalgia- Primary Unspecified myalgia and myositis Phantom pain Phantom limb (syndrome) documented in this encounter [facility] Work Phone: Evaluation note* Diagnosis Chronic pain of both shoulders Intractable neuropathic pain of upper extremity documented in this encounter [facility] Work Phone: History of Present illness Narrative* Jose Segovia MD - 04/29/2025 11:30 AM EDT Subjective Patient ID: Siobhan Haas is a 64 y.o. female with a past medical history of fibromyalgia, obesity, COPD, hypertension, metabolic disease, FAY on BiPAP, left AKA and right BKA presents with bilateral shoulder pain HPI: 64-year-old female with history of fibromyalgia, obesity, COPD, hypertension, metabolic disease, FAY on BiPAP, left AKA and right BKA presents with bilateral shoulder pain. Patient describes pain as aching constant anywhere from a 7-10 out of 10 in severity. Patient reports pain is worse with trying to use her arms. Pain is mainly at the shoulder region bilaterally and does not typically radiate past the deltoid area. Patient also reports limited range of motion states that she needs to have her shoulders replaced at some point but her current risk of infection is too high. Patient has tried gabapentin and buprenorphine patches without much benefit so she stopped taking the patches. Patienthas had multiple injections for the shoulder without much benefit. Patient was referred by Dr. Yusuf for discussion of other advanced procedures such as suprascapular nerve RFA versus Sprint peripheral nerve stimulation trial. Review of Systems 13-point ROS done and negative except for HPI. No current outpatient medications Medical History[1] Surgical History[2] Family History[3] RX Allergies[4] Objective There were no vitals filed for this visit. Physical Exam General: NAD, well groomed, well nourished Eyes: Non-icteric sclera, EOMI Ears, Nose, Mouth, and Throat: External ears and nose appear to be without deformity or rash. No lesions or masses noted. Hearing is grossly intact. Neck: Trachea midline Respiratory: Nonlabored breathing Skin: No rashes or open lesions/ulcers identified on skin. Shoulder: Tenderness to palpation along deltoid and AC joint Limited active range of motion with shoulder abduction bilaterally up to 80 degrees Pain with Hawkin's, Neer's, shoulder impingement Neurologic: Cranial nerves grossly intact. Strength 4/5 bilateral upper extremity strength Sensation: Normal to light touch throughout Psychiatric: Alert, orientation to person, place, and time. Cooperative. Assessment/Plan 64-year-old female with history of fibromyalgia, obesity, COPD, hypertension, metabolic disease, FAY on BiPAP, left AKA and right BKA presents with bilateral shoulder pain. Patient describes pain as aching constant anywhere from a 7-10 out of 10 in severity. Patient reports pain is worse with trying to use her arms. Pain is mainly at the shoulder region bilaterally and does not typically radiate past the deltoid area. Patient also reports limited range of motion states that she needs to have her shoulders replaced at some point but her current risk of infection is too high. Patient has tried gabapentin and buprenorphine patches without much benefit so she stopped taking the patches. Patienthas had multiple steroid injections for the shoulder without much benefit. Patient has not had suprascapular nerve blocks to the area. Patient was referred by Dr. Yusuf for discussion of other advanced procedures such as suprascapular nerve RFA versus Sprint peripheral nerve stimulation trial. Discu ssed with patient trialing suprascapular Nerve block. If significant relief can consider peripheral nerve stimulation trial with Sprint. Plan: - Left suprascapular and axillary nerve block under ultrasound, risk benefits alternatives discussed with patient - Consider peripheral nerve stimulation trial with Sprint based on response from above procedure - Continue physical therapy and home exercise program - Patient was evaluated for potential pain pump however was considered not a candidate - Patient was evaluated by psych so this could be used for PNS in the future We discussed the risks, benefits and alternatives of the procedure including but not limited to: , Lack of efficacy , Transiently worsening pain , Bleeding, Infection , and Nerve Damage Follow up: After procedure The patient was invited to contact us back anytime with any questions or concerns and follow-up with us in the office as needed. Diagnoses and all orders for this visit: Intractable neuropathic pain of upper extremity Comments: L>>R Orders: - US guided pain procedure; Future - Nerve Block; Future Chronic pain of both shoulders - US guided pain procedure; Future - Nerve Block; Future Morbid obesity (Multi) Obstructive sleep apnea Other orders - Referral to Pain Medicine - NPO Diet Except: Sips with meds; Effective now; Standing - Height and weight; Standing - Insert and maintain peripheral IV; Standing - Saline lock IV; Standing - Adult diet Regular; Standing - Vital Signs; Standing - Neuro checks; Standing - Notify physician - Standard Parameters; Standing - Prior to Discharge O2 Weaning; Standing - Pulse oximetry, continuous; Standing This note was generated with the aid of dictation software, there may be typos despite my attempts at proofreading. Patient seen and plan of care discussed with Dr. Mohan Segovia MD Pain Fellow [1] No past medical history on file. [2] No past surgical history on file. [3] No family history on file. [4] Not on File Cosigned by Angelika Preston MD PhD at 04/29/2025 11:15 AM EDT Associated attestation - Angelika Preston MD PhD - 04/29/2025 11:15 AM EDT I saw and evaluated the patient. I personally obtained the jose and critical portions of the historyand physical exam or was physically present for jose and critical portions performed by the resident/fellow. I reviewed the resident/fellow's documentation and discussed the patient with the resident/f dar. I agree with the resident/fellow's medical decision making as documented in the note. documented in this [facility] Work Phone: Hospital course Narrative No data available for this section [facility] Hospital Discharge instructions No data available for this section [facility] Hospital Discharge instructions* Instructions* Divya Helton, MITCH - TRIM STENCIL MAKER - 11/13/2021 In the medical field, there is always a level of diagnostic uncertainty, even if this uncertainty is low. For this reason, it is important to immediately return to the emergency department if you have any new symptoms, worsening symptoms, change of symptoms, or if you have any other concerns. We would be happy to re- evaluate you. Otherwise, please take your medications as prescribed and follow-upas recommended. documented in this [facility] Work Phone: Hospital Discharge instructions* Attachments The following attachments cannot be sent through Care Everywhere. * Wound Incision and Drainage Discharge Instructions (Zambian) [facility] N[facility] Procedure Summary Procedure Name Responsible Anesthesiologist Anesthesia Start Time Anesthesia Stop Time Pain Service Consult Events No events on file. Meds * Agents No agents on file. * Blood No blood administrations on file. Lines, Drains, and Airways Type Details Placement Removal Wound/Incision 05/29/23; 1155; Inci toma; Leg; Anterior, Distal, Left, Upper 05/29/23 1155 by Francie Bob RN Negative Pressure Wound Therapy 05/29/23; 1208; surgeon; Leg; Anterior, Distal, Left, Upper 05/29/23 1208 by Francie Bob RN Peripheral IV Placement Date: 05/03 10/23; Placement Time: 1318 (created via procedure documentation); Catheter Size: 20 G; Orientation: Left; Location: Forearm; Site Prep: Alcohol; Local Anesth: Injectable; Technique: Ultrasound guidance; Inserted by: Renato Snyder APRN - TELEPHONE MAINTAINER; Insertion Attempts: 1; Difficult Venous Access? No 05/31/23 1318 by MITCH Velez CRNA documented [facility] Narrative* Procedure Summary Procedure Name Responsible Anesthesiologist Anesthesia Start Time Anesthesia Stop Time Pain Service Consult Events No events on file. Meds * Agents No agents on file. * Blood No blood administrations on file. Lines, Drains, and Airways Type Details Placement Removal Wound/Incision 05/29/23; 1155; Inci toma; Leg; Anterior, Distal, Left, Upper 05/29/23 1155 by Francie Bob, RN Negative Pressure Wound Therapy 05/29/23; 1208; surgeon; Leg; Anterior, Distal, Left, Upper 05/29/23 1208 by Francie Bob RN Female External Urinary Catheter 05/31/23 05/31/23 0000 by Jing Garnica RN Ped PICC Double Lumen Placement Date: ; Placement Time: 1323; Description: present on arrival to pacu; Orientation: Right 06/05/23 1323 by Kia aRndle RN [facility] No data available for this section [facility] Reason for referral (narrative)* Consultation (Routine) - Pending Review Specialty Diagnoses / Procedures Referred By Li mcneal Referred To Contact Sports Medicine Diagnoses Left shoulder pain Procedures ND OFFICE/OUTPATIENT [facility] [place] 60 MINUTES Bj Barroso MD [address] [address], [address] [place] [address] [place] [address] Referral ID Status Reason Start Date Expiration Date Visits Requested Visits Authorized [id number] Pending Review Specialty Services Required 10/12/2023 10/11/2024 [address] [facility] for referral (narrative)No [facility] for [facility]: Reason for visit Narrative* Consultation (Routine) - Authorized Specialty Diagnoses / Procedures Referred By Contac t Referred To Contact Pain Medicine Diagnoses Fibromyalgia Suprascapular neuropathy, unspecified laterality Mili Yusuf MD PhD [id number] [id number] Phone: tel: fax: Angelika Preston MD PhD [address] [place] [address] Phone: tel: fax: Referral ID Status Reason Start Date Expiration Date Visits Requested Visits Authorized [id number] Authorized Specialty Services Required 04/14/2025 04/14/2026 1 1 [facility] Work Phone: Reason for visit Narrative* Procedure (Routine) - Authorized Specialty Diagnoses / Procedures Referred By Contrichard t Referred To Contact Pain Medicine Diagnoses Chronic pain of both shoulders Intractable neuropathic pain of upper extremity Procedures Nerve Block ND INJECTION AA&/STRD SUPRASCAPULAR NERVE Angelika Preston MD PhD [id number] [id number] Phone: tel: fax: Angelika Preston MD PhD [id number] [id number] Phone: tel: fax: Referral ID Status Reason Start Date Expiration Date Visits Requested Visits Authorized [id number] Authorized Perform Procedure 04/29/2025 04/29/2026 1 1 [facility] Work Phone: Summary Purpose Family History No Family History Records Found Relationship Condition Age at Onset Recorded Date/T philipep mother Hypertension Unknown Malignant neoplasm Unknown Diabetes mellitus Unknown father Malignant neoplasm Unknown brother Diabetes mellitus Unknown grandfather Diabetes mellitus Unknown Relationship Condition Age at Onset Recorded Date/T philippe mother Hypertension Unknown Malignant neoplasm Unknown Diabetes mellitus Unknown father Malignant neoplasm Unknown brother Diabetes mellitus Unknown Asthma Unknown Hypertension Unknown grandfather Diabetes mellitus Unknown Advance Directives No Advanced Directives Records FoundLatest Code Status on File Code Status Date Activated Date Inactivated Comments Full Code - Unverified 11/04/2018 10:25 AM Full Code 11/01/2018 1:47 PM 11/04/2018 10:25 AM Full Code - Unverified 10/07/2018 7:17 AM 11/01/2018 8:20 AM Latest Code Status on File Code Status Date Activated Date Inactivated Comments Full Code - Unverified 11/04/2018 10:25 AM 12/03/2018 10:3 3 PM Full Code 11/01/2018 1:47 PM 11/04/2018 10:25 AM Full Code - Unverified 10/07/2018 7:17 AM 11/01/2018 8:20 AM Latest Code Status on File Code Status Date Activated Date Inactivated Comments Full Code - Unverified 11/04/2018 10:25 AM 12/03/2018 10:3 3 PM Documents on File Type Date Recorded Patient Program Manager Expl anation Advance Directives and Living Will Power of Clerk Typist Latest Code Status on File Code Status Date Activated Date Inactivated Comments Full Code 05/03/2019 9:41 PM Full Code 04/20/2019 6:37 PM 04/29/2019 5:49 PM Full Code 04/08/2019 6:37 AM 04/11/2019 12:08 AM Full Code 03/30/2019 2:16 AM 04/03/2019 4:34 PM Full Code 03/14/2019 9:18 PM 03/15/2019 6:18 PM Documents on File Type Date Recorded Patient Program Manager Expl anation ACP-Advance Directive ACP-Power of Clerk Typist Latest Code Status on File Code Status Date Activated Date Inactivated Comments Full Code 05/03/2019 9:41 PM 05/09/2019 6:39 PM Full Code 04/20/2019 6:37 PM 04/29/2019 5:49 PM Full Code 04/08/2019 6:37 AM 04/11/2019 12:08 AM Full Code 03/30/2019 2:16 AM 04/03/2019 4:34 PM Full Code 03/14/2019 9:18 PM 03/15/2019 6:18 PM Documents on File Type Date Recorded Patient Program Manager Expl anation ACP-Advance Directive ACP-Power of Clerk Typist Latest Code Status on File Code Status Date Activated Date Inactivated Comments Full Code 05/03/2019 9:41 PM 05/09/2019 6:39 PM Latest Code Status on File Code Status Date Activated Date Inactivated Comments Full Code 07/08/2020 9:29 AM Full Code 05/03/2019 9:41 PM 05/09/2019 6:39 PM Latest Code Status on File Code Status Date Activated Date Inactivated Comments Full Code 08/06/2020 6:45 PM Full Code 08/06/2020 6:44 PM 08/06/2020 6:45 PM Full Code 07/27/2020 8:29 AM 07/27/2020 2:40 PM Full Code 07/08/2020 9:29 AM 07/08/2020 8:47 PM Latest Code Status on File Code Status Date Activated Date Inactivated Comments Full Code 08/17/2020 3:21 PM Full Code 08/17/2020 11:14 AM 08/17/2020 3:21 PM Full Code 08/17/2020 11:14 AM 08/17/2020 11:14 AM Full Code 08/06/2020 6:45 PM 08/08/2020 1:52 AM Latest Code Status on File Code Status Date Activated Date Inactivated Comments Full Code 07/27/2020 8:29 AM Latest Code Status on File Code Status Date Activated Date Inactivated Comments Full Code 08/17/2020 3:21 PM 08/18/2020 10:20 PM Latest Code Status on File Code Status Date Activated Date Inactivated Comments Full Code 08/04/2021 8:21 AM Full Code 08/17/2020 3:21 PM 08/18/2020 10:20 PM Latest Code Status on File Code Status Date Activated Date Inactivated Comments Full Code 10/26/2021 4:15 AM 11/01/2021 9:32 PM Full Code 09/24/2021 6:28 PM 09/28/2021 6:26 PM Full Code 08/04/2021 8:21 AM 08/04/2021 2:16 PM Latest Code Status on File Code Status Date Activated Date Inactivated Comments Full Code 12/19/2021 7:29 AM Full Code 11/17/2021 8:27 PM 11/21/2021 4:56 PM Full Code 11/17/2021 1:31 PM 11/17/2021 8:13 PM Full Code 10/26/2021 4:15 AM 11/01/2021 9:32 PM Latest Code Status on File Code Status Date Activated Date Inactivated Comments Full Code 01/11/2022 12:52 PM Full Code 12/19/2021 7:29 AM 12/19/2021 2:03 PM Advance Directive Response Recorded Date/ Time Advance Directives No November 3:55pm Living Will Yes January 21, 2022 2:19pm Power of Clerk Typist Yes January 21 2:19pm Advance Directive Response Recorded Date/ Time Advance Directives No November 2:55pm Living Will Yes August 31 4:59pm Power of Clerk Typist Yes August 31, 2022 4:59pm Name of Medical Power of Clerk Typist Johanna daugh ter August 31, 2022 4:59pm Advance Directive Response Recorded Date/ Time Name of Medical Power of Clerk Typist Johanna daugh ter August 31, 2022 4:59pm Advance Directives No November 2:55pm Living Will Yes August 31 4:59pm Power of Clerk Typist Yes August 31, 2022 4:59pm Advance Directive Response Recorded Date/ Time Name of Medical Power of Clerk Typist Johanna daugh ter August 31, 2022 4:59pm Advance Directives No November 2:55pm Living Will No September 10, 2 12:31pm Power of Clerk Typist No September 10, 2022 12:31pm Advance Directive Response Recorded Date/ Time Name of Medical Power of Clerk Typist Johanna daugh ter August 31, 2022 4:59pm Advance Directives No November 2:55pm Living Will No October 15 11:22pm Power of Clerk Typist No October 15, 2022 11:22pm Advance Directive Response Recorded Date/ Time Name of Medical Power of Clerk Typist Johanna daugh ter August 31, 2022 4:59pm Advance Directives No November 2:55pm Living Will No October 16 2:46am Power of Clerk Typist No October 16, 2022 2:46am Advance Directive Response Recorded Date/ Time Name of Medical Power of Clerk Typist Johanna daugh ter August 31, 2022 4:59pm Advance Directives No November 2:55pm Living Will No November 06 6:34pm Power of Clerk Typist No November 06, 2022 6:34pm Latest Code Status on File Code Status Date Activated Date Inactivated Comments Full Code 12/04/2022 12:46 AM Code Status History Code Status Date Activated Date Inactivated Comments Full Code 11/10/2022 6:56 PM 11/27/2022 9:38 PM Full Code 11/02/2022 10:16 AM 11/02/2022 5:21 PM Latest Code Status on File Code Status Date Activated Date Inactivated Comments Full Code 12/04/2022 12:46 AM 12/12/2022 9:10 PM Code Status History Code Status Date Activated Date Inactivated Comments Full Code 11/10/2022 6:56 PM 11/27/2022 9:38 PM Full Code 11/02/2022 10:16 AM 11/02/2022 5:21 PM Latest Code Status on File Code Status Date Activated Date Inactivated Comments Full Code 02/22/2023 8:42 AM 02/28/2023 6:37 PM Code Status History Code Status Date Activated Date Inactivated Comments Full Code 12/04/2022 12:46 AM 12/12/2022 9:10 PM Full Code 11/10/2022 6:56 PM 11/27/2022 9:38 PM Full Code 11/02/2022 10:16 AM 11/02/2022 5:21 PM Latest Code Status on File Code Status Date Activated Date Inactivated Comments Full Code 02/22/2023 8:42 AM 02/28/2023 6:37 PM Code Status History Code Status Date Activated Date Inactivated Comments Full Code 12/04/2022 12:46 AM 12/12/2022 9:10 PM Full Code 11/10/2022 6:56 PM 11/27/2022 9:38 PM Full Code 11/02/2022 10:16 AM 11/02/2022 5:21 PM Latest Code Status on File Code Status Date Activated Date Inactivated Comments Full Code 05/29/2023 12:53 PM Code Status History Code Status Date Activated Date Inactivated Comments Full Code 02/22/2023 8:42 AM 02/28/2023 6:37 PM Full Code 12/04/2022 12:46 AM 12/12/2022 9:10 PM Full Code 11/10/2022 6:56 PM 11/27/2022 9:38 PM Full Code 11/02/2022 10:16 AM 11/02/2022 5:21 PM Latest Code Status on File Code Status Date Activated Date Inactivated Comments Full Code 05/29/2023 12:53 PM 06/08/2023 6:10 PM Latest Code Status on File Code Status Date Activated Date Inactivated Comments Full Code 05/29/2023 12:53 PM 06/08/2023 6:10 PM Code Status History Code Status Date Activated Date Inactivated Comments Full Code 02/22/2023 8:42 AM 02/28/2023 6:37 PM Full Code 12/04/2022 12:46 AM 12/12/2022 9:10 PM Full Code 11/10/2022 6:56 PM 11/27/2022 9:38 PM Full Code 11/02/2022 10:16 AM 11/02/2022 5:21 PM Latest Code Status on File Code Status Date Activated Date Inactivated Comments Full Code 06/26/2023 6:36 AM 07/03/2023 1:51 PM Code Status History Code Status Date Activated Date Inactivated Comments Full Code 05/29/2023 12:53 PM 06/08/2023 6:10 PM Full Code 02/22/2023 8:42 AM 02/28/2023 6:37 PM Full Code 12/04/2022 12:46 AM 12/12/2022 9:10 PM Full Code 11/10/2022 6:56 PM 11/27/2022 9:38 PM Advance Directive Response Recorded Date/ Time Advance Directives No November 3:55pm Living Will No July 20 4:41pm Power of Clerk Typist No July 20, 2023 4:41pm Advance Directive Response Recorded Date/ Time Advance Directives No November 3:55pm Living Will No July 21 12:20am Power of Clerk Typist No July 21, 2023 12:20am Latest Code Status on File Code Status Date Activated Date Inactivated Comments Full Code 06/26/2023 6:36 AM 07/03/2023 1:51 PM Code Status History Code Status Date Activated Date Inactivated Comments Full Code 05/29/2023 12:53 PM 06/08/2023 6:10 PM Full Code 02/22/2023 8:42 AM 02/28/2023 6:37 PM Full Code 12/04/2022 12:46 AM 12/12/2022 9:10 PM Full Code 11/10/2022 6:56 PM 11/27/2022 9:38 PM Date Activated Date Inactivated Comments 06/26/2023 6:36 AM 07/03/2023 1:51 PM Date Activated Date Inactivated Comments 05/29/2023 12:53 PM 06/08/2023 6:10 PM Date Activated Date Inactivated Comments 02/22/2023 8:42 AM 02/28/2023 6:37 PM Date Activated Date Inactivated Comments 12/04/2022 12:46 AM 12/12/2022 9:10 PM Date Activated Date Inactivated Comments 11/10/2022 6:56 PM 11/27/2022 9:38 PM Latest Code Status on File Code Status Date Activated Date Inactivated Comments Full Code 11/02/2022 10:16 AM 11/02/2022 5:21 PM Latest Code Status on File Code Status Date Activated Date Inactivated Comments Full Code 11/10/2022 6:56 PM Code Status History Code Status Date Activated Date Inactivated Comments Full Code 11/02/2022 10:16 AM 11/02/2022 5:21 PM Latest Code Status on File Code Status Date Activated Date Inactivated Comments Full Code 11/10/2022 6:56 PM Code Status History Code Status Date Activated Date Inactivated Comments Full Code 11/02/2022 10:16 AM 11/02/2022 5:21 PM Latest Code Status on File Code Status Date Activated Date Inactivated Comments Full Code 11/10/2022 6:56 PM 11/27/2022 9:38 PM Latest Code Status on File Code Status Date Activated Date Inactivated Comments Full Code 12/04/2022 12:46 AM Latest Code Status on File Code Status Date Activated Date Inactivated Comments Full Code 12/04/2022 12:46 AM 12/12/2022 9:10 PM Advance Directive Response Recorded Date/ Time Living Will No January 14, 2025 8:25am Do you have a Healthcare Power of Clerk Typist? No January 14, 2025 8:25am Advance Directives No November 1:13pm Advance Directive Response Recorded Date/ Time Living Will No January 14, 2025 12:59pm Do you have a Healthcare Power of Clerk Typist? No January 14, 2025 12:59pm Advance Directives No November 1:13pm Reason for Referral Status Reason Specialty Diagnoses / Procedures Referred By Contact Referred To Contact Pending Review Patient Preference Home Health Services Diagnoses FAY (obstructive sleep apnea) Cellulitis of right foot Pain from implanted hardware, initial encounter Arthritis of right subtalar joint Rigo Shelton, DO [address] [facility] [place] [address] Status Reason Specialty Diagnoses / Procedures Referred By Contact Referred To Contact Pending Review Radiology Diagnoses Pseudarthrosis after fusion or arthrodesis Arthrodesis status Procedures NM Bone Marrow Limited Rigo Shelton DO [address] [id number] Status Reason Specialty Diagnoses / Procedures Referred By Contact Referred To Contact Authorized Radiology Diagnoses Pseudarthrosis after fusion or arthrodesis Arthrodesis status Procedures NM White Blood Cell Prep Rigo Shelton DO [address] [id number] Status Reason Specialty Diagnoses / Procedures Referred By Contact Referred To Contact Pending Review Radiology Diagnoses Amputation of right lower extremity (HCC) Procedures CT Lower Extremity Right WO Contrast Rusty Bassett MD [address] [facility] [address] [place] [address] Specialty Diagnoses / Procedures Referred By Li mcneal Referred To Contact Art Shearer MD [address] [facility] [address] [place] [address] Referral ID Status Reason Start Date Expiration Date V isits Requested Visits Authorized [id number] Pending Review 1 1 Discharge Instructions * Discharge Instr - AVS First Page* Dorothy Bonner MD - 11/05/2018 9:53 AM EST Weekly CBC with diff, creatinine, ESR, CRP to Dr. Bonner at [phone]. * Discharge Instr - Care Coordination* Terrell Junior LSW - 11/05/2018 1:04 PM EST Home Health Care Agency: [facility] P: [phone] F: [phone] Home Infusion Pharmacy: [facility] P: [phone] F: [phone] * Additional Instructions* Angeli Holly Jing, TRIM STENCIL MAKER - 11/05/2018 You are to be: Non weightbearing to the operative extremity/Weightbearing as tolerated on operativeextremity Follow up with Dr. Shelton in: 2 weeks call for an appointment if you do not already have one or are not sure Pain Management: ? If you have received a block, the pain relief can last from 4-36 hours, this also means you may not have sensation or movement in your foot for the same amount of time. ? SURGERY IS PAINFUL, especially foot & ankle surgery due to swelling. It is impossible to alleviate all pain after surgery. Expect to have some pain even with pain medicines. ? You will have pain after the block wears off! Anticipate this and start pain meds prior to the block wearing off. ? It is important to control your pain after surgery. ? Take your first dose of the prescribed pain medication as soon as you get home even if you have no pain. ? Continue to take your pain medication continuously as prescribed for the first 48 hours Ensure that the patient (you) are alert and have no difficulty breathing before taking the medication. ? You can expect that the first night will be the most painful and uncomfortable, if you have not had a pain block. We will give you strong medication to make you as comfortable as possible, but you may still have some break through pain. ? After the first 48 hours you may take the medication as needed for pain. Dressing: ? Bleeding through the dressings is quite common. o This usually occurs for the first 1-2 hours after surgery. The actual bleeding has stopped by thetime you see the drainage through the dressings. ? Your dressings should be kept DRY at all times Do Not Shower, Bathe, or Wet your Dressing in any way. ? DO NOT REMOVE your dressing or splint. The wound is still sterile (since the dressing was placed on you in the operating room) until the dressing is removed by Dr. Shelton or his staff in the officeat your post-operative visit. The goal is to avoid getting a wound infection by keeping the wound as clean as possible. Elevation: ? Strict elevation for the first 14 days after surgery. ? Elevate your foot/ankle at the level or above your heart for this period of time. ? The more you elevate your foot/ankle, the less pain you will have. ? Restrict the time your foot is down to 10 minutes or less at a time. ? After the strict elevation period is done, this should get you to your 2 week post op visit in the office. At that visit your splint will be removed and you will get further instructions on how youwill increase your activity. ? You should listen to your foot/ankle as to when to elevate your foot/ankle again. ? Remember: Don t do anything that hurts or makes your foot/ankle swell!!!! ? Elevation can decrease swelling and help prevent wound problems, it is very important!! Too much swelling will put tension on the sutures/al holding the wound together and can sometimes allow the wound to pop open. This increases the risk for infection and poor scar formation. Icing: ? Icing can be very useful to decrease the pain and swelling of the foot/ankle. ? Start by icing behind around the foot/ankle for 20 minute periods of time and 20 minutes off, then repeat. ? DO NOT put ice directly on your skin & DO NOT get your dressing wet!! Weightbearing: ? No weightbearing on your operated leg for 2 weeks, unless otherwise instructed by your physician. ? That means the foot may not touch the ground when standing or walking, unless your surgery does not require this. In that case the physician and or the clinical assistant account executive will instruct you otherwise. What to watch for: ? Severe swelling and/or pain in the leg or calf: This could indicate a deep vein thrombosis (bloodclot in the leg) ? Profuse bleeding: That which soaks through your dressing and increases in size. ? Blue or white toes: This indicates a lack of blood flow to the foot. ? Fever greater than 101.5: Fevers less than this are very common the first few days after surgery and are unlikely to indicate infection. ? Severe pain: That which does not improve after pain medication, except for the first night. If you have any of the above problems or any concerns, please contact our office (M-F 8AM to 5PM) at and someone from Dr. Shelton s office will contact you. If this is after office hours, you may call the school transportation director physician with your questions, however they will not adjust or change your pain medications nor will they prescribe any new or different pain medications. If in any event, you are unable to reach anyone, or feel that you have a medical emergency, please go to the nearest emergency department or call 911. Medications: *Medications can take up to 24 hours to be refilled by our office* Antibiotics: IV antibiotics are given at the time of surgery, and are chosen based upon your allergies. You generally are not sent home taking this medication. Nausea: If requested, you will be given either Phenergen 25mg every 6 hours or Zofran 4mg every 6 hours forpost operative nausea Musele spasms: If you had a calf lengthening procedure, you will be given Flexeril 10mg every 8 hours for muscle spasms. Pain medication: Typically after surgery, the Dr. Shelton orders Oxycodone 5mg for the patient to go home from the hospital. Maximum of 1-2 tablets every 4 hours. This medication is usually a one time prescription. You should contact the office to have this medication adjusted prior to running out. Another helpful option is to do a few doses of over the counter NSAID s (anti- iflammatories such as: Ibuprofen, Advil, Aleve, Motrin etc.). If you have bones that are trying to heal, you should not take them for more than 2 or 3 days as this can delay bone healing. However, it can dramatically reduce your pain/swelling in the short term. Take them as directed on the bottle. If you do not have bones healing, you may add this to your post-operative pain control regimen. Just make sure to pay attention to your stomach as they can cause GI upset or ulcers if taken too aggressively or for too long. Patients will typically be given Melfa or Vicodin as a step down after the Oxycodone is done. The strength of these medications will depend on the pain level of the pain at the time and what type of surgery that they have had. A new law in [place], that went into effect on May 31, 2017, restricts pain medications being prescribed post operatively. Please use anti inflammatories, elevate the extremity and take pain meds as prescribed. You will be required to see Dr. Shelton in the office for any refill or uncontrolled painissue. Please call his office with questions. Blood clots: Pain in the calf after surgery is worrisome for a blood clot. If you had your calf lengthened, somecalf CRAMPING is normal. If your pain is relieved with your flexeril, then it is likely due to the calf spasms from the lengthening. If you have calf pain not relieved by the flexeril or did not havea calf lengthening, you should notify the office if during business hours or proceed to the nearest emergency department for evaluation if after normal business hours. An ultrasound needs to be done to rule out a blood clot. The concern is that a blood clot can start in your leg and travel to your lungs and cause . Patients are to take Aspirin 325mg one tablet twice daily or every (12 hours) to minimize risk of developing a blood clot in the leg (deep vein thrombosis or DVT) DO NOT TAKE ASPIRIN if you are already taking a blood thinner medication (Lovenox, Coumadin, Plavixetc.), are taking NSAID s or will be sent home from the hospital with a different blood thinner medication. Please notify the Dr. Shelton or the staff if you are already on a blood thinner or what your primary doctor would like you to take after surgery. Constipation: Remember that any narcotic pain medication may cause constipation. We suggest plenty of fluids, such as water and juice. You may also contact your pharmacy and or your Primary Care Physician to see what you should take over the counter to help with constipation if you develop this issue. Additional instructions, questions or comments: If you feel that you may need further assistance at home (home health care) or another assistive device (crutches, knee scooter, etc.) to help you get around please call at . We can get you in touch with representatives from home health care organizations to look into getting you the assistance you may require. SLEEP DISORDER RISK, HOME CARE INSTRUCTIONS - During your admission to the hospital, we identified you at risk of having a sleep disorder. Because of these initial findings, we recommend that you learn more about sleep disorders, talk to your primary care doctor and have further testing, such as a sleep study. Undiagnosed and untreated sleepapnea is very dangerous, especially after surgery and when you are taking any kind of sedation medication, including the prescribed medication given to you after surgery. -Obstructive sleep apnea (FAY) is the most common type of sleep disorder. With FAY, a person has short periods where they stop breathing while sleeping. This condition can be treated. If left untreated it can lead to heart attack, stroke, and even sudden -The most common test to diagnose a sleep disorder is a sleep study. During a sleep study, you go to a sleep center in the evening and you are monitored while you sleep. -The most common treatment for FAY is using equipment that keeps your airway open while you sleep. If you need treatment, the doctor will explain this to you and you will be instructed on how to use the equipment. With treatment, most people feel better and have more energy within a few days. Treatment also helps prevent other medical conditions. - Until you are able to be evaluated to determine if you have sleep apnea you should sleep with your head of bed elevated (not just with pillows, but actual head of bed must be elevated), avoid sedating medications and alcohol at bedtime, take the least amount of the prescribed medication for the least amount of time possible. -Follow-up - We recommend you have further testing. -Make an appointment with your primary care doctor to discuss getting tested for a sleep disorder. Your doctor can answer any other questions and help get further testing, if needed. in this encounter* Attachments The following attachments cannot be sent through Care Everywhere. * Arm Pain (Zambian) in this encounter* Discharge Instr - Activity* Estrellita Layton MD - 05/09/2019 2:11 PM EDT As tolertaed * Discharge Instr - Diet* Estrellita Layton MD - 05/09/2019 2:11 PM EDT ? Good nutrition is important when healing from an illness, injury, or surgery. Follow any nutrition recommendations given to you during your hospital stay. ? If you were given an oral nutrition supplement while in the hospital, continue to take this supplement at home. You can take it with meals, in-between meals, and/or before bedtime. These supplements can be purchased at most local grocery stores, pharmacies, and [employer]-stores. ? If you have any questions about your diet or nutrition, call the hospital and ask for the dietitian. Low salt diet * Discharge Instr - JENNIFER* Vinh Ventura RN - 05/07/2019 11:29 AM EDT Continuity of Care Form Patient Name: Siobhan Haas : 1960 Admit date: 05/03/2019 Discharge date: 05/09/19 Code Status Order: Full Code Advance Directives: Advance Care Flowsheet Documentation Date/Time Healthcare Directive Type of Healthcare Directive Copy in Chart Healthcare Agent Appointed Healthcare Agent's Name Healthcare Agent's Phone Number 05/04/19 0133 No, patient does not have an advance directive for healthcare treatment -- -- -- -- -- Admitting Physician: Shara Alaniz DO PCP: Oj Maddox APRN - TRIM STENCIL MAKER Discharging Nurse: Vinh [facility] Unit/Room#: 5102/[id number] Discharging Unit Emergency Contact: Extended Emergency Contact Information Primary Emergency Contact: Luz Marina Mueller [facility] Relation: Child Secondary Emergency Contact: Jordyn Manzanares Relation: None Past Surgical History: Past Surgical History: Procedure Laterality Date ABDOMINOPLASTY BREAST SURGERY 2006 and abdomin removal for excess COLONOSCOPY ENDOSCOPY, COLON, DIAGNOSTIC FOOT SURGERY Right 2018 IN [place] FOOT SURGERY Right 02/11/2019 FOOT SURGERY Right 04/08/2019 I&D right foot with antibiotic spacer FOOT SURGERY Right 04/24/2019 I&D;, external fixator HYSTERECTOMY 1997 INCONTINENCE SURGERY 11/15/2015 synthetic mid urethral sling,cystoscopy LIPOMA RESECTION Right 2015 shoulder ORTHOPEDIC SURGERY Right 04/01/2019 I&D with removal hardware and antibiotic spacer placed OTHER SURGICAL HISTORY 09/21/2016 INTERSTIM STAGE II, COMPLEX ANALYSIS OF NEUROSTIMULATOR OTHER SURGICAL HISTORY NERVE BLOCKS FROM PAIN MANAGEMENT OTHER SURGICAL HISTORY Right 03/07/2019 debridement of right foot OTHER SURGICAL HISTORY Right 04/02/2019 R foot skin graft/flap, wound debridement/Wound vac removal OTHER SURGICAL HISTORY Right 04/22/2019 right foot I and D OTHER SURGICAL HISTORY Right 05/06/2019 Right Below Knee Amputation (CPT 10706), #2 Excisional debridement right iliac crest (wound 7 cm length, 3 cm width, 7 cm depth) TONSILLECTOMY TOTAL KNEE ARTHROPLASTY Left 2012 ARTHROSCOPY FIRST AND KNEE REPLACED Immunization History: There is no immunization history on file for this patient. Active Problems: Patient Active Problem List Diagnosis Code Asthma with acute exacerbation J45.901 Back pain M54.9 Depression F32.9 Hemorrhage of rectum and anus K62.5 Hypertension I10 Asthma J45.909 Osteomyelitis of right foot (HCC) M86.9 Post-op pain G89.18 Postoperative pain G89.18 Hardware complicating wound infection (HCC) T84.7XXA MSSA (methicillin susceptible Staphylococcus aureus) infection A49.01 Open wound of right foot S91.301A Cellulitis L03.90 Hematoma T14.8XXA Cellulitis of right foot L03.115 Right foot pain M79.671 Right foot infection L08.9 Osteomyelitis (HCC) M86.9 Isolation/Infection: Isolation No Isolation Nurse Assessment: Last Vital Signs: BP (!) 119/56 Pulse 84 Temp 99.1 F (37.3 C) (Temporal) Resp 18 Ht 5' 7 (1.702 m) Wt (!) 320 lb (145.2 kg) SpO2 92% BMI 50.12 kg/m Last documented pain score (0-10 scale): Pain Level: 8 Last Weight: Wt Readings from Last 1 Encounters: 05/03/19 (!) 320 lb (145.2 kg) Mental Status: oriented IV Access: - None Nursing Mobility/ADLs: Walking Assisted Transfer Assisted Bathing Dependent Dressing Assisted Toileting Assisted Feeding Independent Notch Grinder Independent Med Delivery none Wound Care Documentation and Therapy: Elimination: Continence: Bowel: No Bladder: No Urinary Catheter: None Colostomy/Ileostomy/Ileal Conduit: No Date of Last BM: 05/09/19 Intake/Output Summary (Last 24 hours) at 05/07/2019 1128 Last data filed at 05/07/2019 1028 Gross per 24 hour Intake 3410 ml Output 1700 ml Net 1710 ml I/O last 3 completed shifts: In: 3050 [P.O.:1300; I.V.:1750] Out: 1700 [Urine:1500; Blood:200] Safety Concerns: None Impairments/Disabilities: Amputation - Right BKA Nutrition Therapy: Current Nutrition Therapy: - Oral Diet: General Routes of Feeding: Oral Liquids: No Restrictions Daily Fluid Restriction: no Last Modified Barium Swallow with Video (Video Swallowing Test): not done Treatments at the Time of Hospital Discharge: Respiratory Treatments: Oxygen Therapy: is not on home oxygen therapy. Ventilator: - No ventilator support Rehab Therapies: Orthotics/Prosthetics, PT and OT Weight Bearing Status/Restrictions: No weight bearing restirctions Other Medical Equipment (for information only, NOT a DME order): bedside commode Other Treatments: Patient's personal belongings (please select all that are sent with patient): None RN SIGNATURE: MANAGEMENT/SOCIAL WORK SECTION Inpatient Status Date: Readmission Risk Assessment Score: Readmission Risk Risk of Unplanned Readmission: 26 Discharging to Facility/ Agency Name: [facility] Address:[address] [place] [address] Phone1 :[phone] Fax: Dialysis Facility (if applicable) Name: Address: Dialysis Schedule: Phone: Fax: It Senior Analyst/Chronometer Assembler signature: ICIAN SECTION Prognosis: Fair Condition at Discharge: Stable Rehab Potential (if transferring to Rehab): Fair Recommended Labs or Other Treatments After Discharge: [facility] on 05/10/19 Physician Certification: I certify the above information and transfer of Siobhan Haas is necessary for the continuing treatment of the diagnosis listed and that she requires Correction Facility for less 30 days. Update Admission H&P: No change in H&P PHYSICIAN SIGNATURE: * Additional Instructions* Foreign Foster MD - 05/06/2019 General Orthopedic Discharge Instructions The following instructions have been prepared to help you when you leave the hospital. These guidelines are for the post-surgery period. Activity: Ease into normal activity as tolerated. Medications: see medication instructions. Please be sure to read and understand the information provided by your pharmacy. Ask your Pharmacist if any questions. Wound Care and Hygiene: -Wash hands before touching or changing dressings -Do Not touch incision -Leave dressing till post-op day 2 and reapply dressing if wound is leaking. If wound is dry, you may leave dressing off -May shower starting post-op day 3 Call Your Doctor for: -Excessive bleeding/swelling of incision -Fever with temperature above 100 oF Anesthesia Precautions: -Do Not operate any vehicle (automobile, bicycle, motorcycle) or power tools for 24 hours -Do Not drink alcoholic beverages for 24 hours -As precaution to prevent post-operative nausea and vomiting, start your diet with liquids, then progress to light foods. If tolerated, resume normal diet. Additional Instructions: No weight through the right leg amputation site. documented in this encounter* Instructions* Jing Garnica RN - 07/01/2020 Please bring your [employer] Surgical Information folder on the day of surgery. Please jon the last dose taken (date and time ) on your Daily Medications List provided in your After Visit Summary. Please bring a photo ID and insurance information TAKE the following medications the morning of your surgery - Celexa, Gabapentin You may take your prescription pain medications. You may take Tylenol (Acetaminophen) if needed forpain. No Motrin, Ibuprofen, or Advil 24 hours prior to surgery, or longer if instructed by your surgeon. No Aleve or Naprosyn 3 days prior to surgery, or longer if instructed by your surgeon. If you are on BLOOD THINNERS or ASPIRIN - Additional instructions - Follow all instructions given to you by Dr. Leung. You will receive a reminder call the day before surgery with your Same Day Surgery arrival time. If you have specific questions, please call your surgeon. documented in this encounter* Instructions* Lorraine Cisse DO - 07/08/2020 Learning About What to Expect at Home After Surgery What do you need to know when you leave the hospital after surgery? Each person recovers from surgery at a different pace. Your discharge plan will help you leave the hospital safely. It will outline the care you need. And it will give you information about the things you'll need to do at home. Make sure you get your plan in writing. Look for information on: What your medicines are and how to take them. When you need to see the doctor again or get any follow-up tests. How and when to change bandages and dressings. How active you can be. This may include physical therapy. How to prevent falls. What you can eat and can't eat. What do you need to know about taking medicines? Your doctor will talk with you about restarting your medicines. He or she will also tell you about taking any new medicines. If you take aspirin or some other blood thinner, be sure to talk to your doctor. He or she will tell you if and when to start taking those medicines again. If your doctor gave you a prescription medicine for pain, take it as prescribed. If you aren't taking a prescription pain medicine, ask your doctor if you can take an [id number] medicine. How can you take care of your incision? If you have a cut (incision), follow your doctor's instructions to care for it. If you did not get instructions, follow this general advice: You will have a dressing over the cut. A dressing helps the incision heal and protects it. ? Change the bandage every day. ? If you have strips of tape on the cut, leave them on for a week or until they fall off. ? If you have stitches or al, your doctor will tell you when to come back to have them removed. ? If you have skin adhesive (liquid stitches) on the cut, leave it on until it falls off. Wash the area daily with warm water, and pat it dry. Don't use hydrogen peroxide or alcohol. You may shower 24 to 48 hours after surgery. Pat the incision dry. Don't swim or take a bath for the first 2 weeks, or until your doctor tells you it's okay. When can you be active again? One of the most important things you can do for yourself after surgery is to find ways to move. When you move as much as possible, even in bed, you are helping your body heal. Here are some tips: Don't move quickly or lift anything heavy until you feel better. Taking short walks is a good way to help your body heal. Rest when you feel tired. Your doctor may give you instructions on when you can do your normal activities again, such as driving and going back to work. What do you need to know about eating? If your doctor told you when you can start eating and what foods you can eat, follow your doctor's instructions. If you did not get instructions, follow this general advice: You can eat your normal diet when you feel well. If your stomach is upset, try bland, low-fat foods. These include plain rice, broiled chicken, toast, and yogurt. If your bowel movements aren't regular right after surgery, try to avoid constipation and straining. Drink plenty of water. Your doctor may suggest fiber, a stool softener, or a mild laxative. What do you do if you have infection or pain? If you have signs of infection, call your doctor. These signs include: Increased pain, swelling, warmth, or redness. Red streaks leading from the incision. Pus draining from the incision. A fever. Also call your doctor if you have pain that does not get better after you take pain medicine. Follow-up care is a jose part of your treatment and safety. Be sure to make and go to all appointments, and call your doctor if you are having problems. It's also a good idea to know your test resultsand keep a list of the medicines you take. Where can you learn more? Go to https://[email or web address] and sign in to your [employer] account. Enter X507 in the Search Health Information box to learn more about Learning About What to Expect at Home After Surgery. If you do not have an account, please click on the Sign Up Now link. Current as of: February 25, 2020 Content Version: 12.6 [employer]. Care instructions adapted under license by [employer]. If you have questions about a medical condition or this instruction, always ask your healthcare professional. [employer] disclaims any warranty or liability for your use of this information. documented in this encounter* Instructions* Maximino Aceves JD, MD - 08/07/2020 General Orthopedic Discharge Instructions The following instructions have been prepared to help you when you leave the hospital. These guidelines are for the post-surgery period. Activity: Ease into normal activity as tolerated. Weightbearing status: do not bear weight with right leg Medications: see medication instructions. Please be sure to read and understand the information provided by your pharmacy. Ask your Pharmacist if any questions. Wound Care and Hygiene: -Wash hands before touching or changing dressings -Do Not touch incision -Leave dressing till post-op day 2 and reapply dressing if wound is leaking. If wound is dry, you may leave dressing off -May shower starting post-op day 3 Call Your Doctor for: -Excessive bleeding/swelling of incision -Fever with temperature above 101 F Anesthesia Precautions: -Do Not operate any vehicle (automobile, bicycle, motorcycle) or power tools for 24 hours -Do Not drink alcoholic beverages for 24 hours -As precaution to prevent post-operative nausea and vomiting, start your diet with liquids, then progress to light foods. If tolerated, resume normal diet. Additional Instructions: Immobilization: none Follow up with Dr. Bassett in 2 weeks. Call to schedule your appointment as soon as possible. documented in this encounter* Discharge Instr - Activity* Rusty Bassett MD - 08/17/2020 1:52 PM EST Weight-bearing and post-operative activity Dr Bassett wants you to be nonweight bearing on the Right lower extremity. You will continue this weight bearing restriction for the next 6 weeks If you have any problems maintaining this weight bearing status please call the office so that appropriate instructions can be given. Dr. Bassett wants you to get up once per hour during the day to move around for a few minutes while following the above weight bearing orders. He does not want you to be in bed or on a couch all day not getting up. Getting up and moving once per hour helps to promote blood flow and is one way of trying to prevent a blood clot. Remember that when you get up it is normal for your foot/toes to change color and for you to feel fluid, pressure or throbbing (your heart beat) in your foot or toes. When you return to sitting down or laying down elevate your foot as it will lessen your swelling and be more comfortable. If you are having a hard time moving around during the day, let Dr Bassett know. * Discharge Instr - Diet* Rusty Bassett MD - 08/17/2020 1:52 PM EST ? Good nutrition is important when healing from an illness, injury, or surgery. Follow any nutrition recommendations given to you during your hospital stay. ? If you were given an oral nutrition supplement while in the hospital, continue to take this supplement at home. You can take it with meals, in-between meals, and/or before bedtime. These supplements can be purchased at most local grocery stores, pharmacies, and chain super-stores. ? If you have any questions about your diet or nutrition, call the hospital and ask for the dietitian. * Discharge Instr - Lab* Micki Garcia RN - 08/18/2020 2:18 PM EST Your physician has ordered skilled home care services for you. Your home care will be provided by: [facility] [phone] * Additional Instructions* Rusty Bassett MD - 08/17/2020 If you have any questions please call Dr Bassett's office ([phone]), all calls after 4:30 pm or anytime on Sunday or Sunday go through the answering service. The nurse at the answering service will triage your call to determine if the at night on-call physician needs to be called (this may notbe Dr Bassett but one of his partners if Dr Bassett is not school transportation director). Any calls regarding medication refills will be handled by the office during usual business hours Sunday-Sunday. If you call for medication refills after hours or on the weekend you will have to wait until the next business day. BANDAGE INSTRUCTIONS: Keep your bandage clean and dry. Do not put anything down under the dressings to scratch. If your bandage gets wet or starts to feel uncomfortable call Dr Bassett's office immediately ([phone]). The VAC dressing will be changed by [facility] and if there are any issues with the VAC dressing call yournurse. If you are unable to reach your nurse please call Dr Bassett. ACTIVITY: The first 2 weeks after surgery is the most important time for healing. Please take this time to rest and give yourself the best chance to have a good outcome. Doing too much can affect your healing.If you are not sure how active you can be please call Dr Bassett. You should get up and move around once or twice an hour based on your comfort level. You are not prashant at bed rest meaning you need to get up and move around in order to prevent blood clots. It is OK to wiggle your toes and you can contract your calf muscle as well. When you put your foot down it is normal for the toes to turn a bluish or purple color. Once you elevate the foot for a few minutes a normal pink color should return underneath the toenails. If the color does not change within [address] Bassett's office. Keep your Right leg elevated for comfort. Elevation is the best way to alleviate pain and decrease your swelling (swelling causes pain by itself). Elevation means keeping the knee at the level of your nose. If your leg is not elevated to that height then it is not truly elevated. MEDICATIONS You have been given a prescription for a narcotic medication that is intended for postoperative pain control. This medication should be used judiciously to try and minimize your discomfort after surgery. The medication will not relieve all of your pain and you should not take large amounts of the medication in an attempt to be pain free. Please understand that narcotic medications can be addictive and they are intended to decrease but not eliminate your pain and should therefore be used in moderation. If you have questions regarding taking the narcotic medication and other medications that you are currently on please call the office. You cannot drive or operate machinery while taking the narcotic medication. You should not drink alcohol or use recreational drugs while taking the narcotic medication.[facility] restricts the amount of pain pills that can be legally prescribed and no more than one prescription in a week can be given. If you require a refill of the pain medication it requires that someone come to the office in person as it cannot be called in to the pharmacy or E-prescribed. Please understand that there is a limit to the total amount of pain medication that canbe prescribed so make every effort to take it only when needed. Unless otherwise instructed by Dr Bassett you can take an over the counter anti-inflammatory to help with your pain as well. This includes but is not limited to Ibuprofen, Advil, Motrin, Alleve, etc. WEIGHTBEARING INSTRUCTIONS Dr Bassett wants you to be nonweight bearing on the Right lower extremity. You will continue this weight bearing restriction for the next 6 weeks If you have any problems maintaining this weight bearing status please call the office so that appropriate instructions can be given. FREQUENTLY ASKED QUESTIONS If I am supposed to be non-weight bearing on the operative foot/ankle can I still rest the foot on the ground when I am sitting? Yes, it is OK to rest your operative foot on the ground when you are sitting. Is it normal to feel a mendez of fluid or pressure in my foot/ankle when I put it down? Yes, after most foot, ankle or leg surgeries it is very common to feel immediate swelling or pressure in your foot, ankle and leg. Is it OK to put ice on my foot/ankle to help with the swelling and pain? After foot/ankle surgery elevating the foot/ankle is much better at relieving pain and swelling than ice. In many cases you bandage prevents the cold from getting to your skin. At your 2 week visit when your bandage is removed, icing the foot/ankle works much better and you can start it then. If I received a nerve block before surgery, how long will it last? A single shot nerve block can last anywhere from 8 hours to 36 hours on average, some patients' single shot blocks stop sooner and some can go a little longer. A catheter block (pain ball) lasts longer when you have it dialed down and it runs out faster if you have it dialed up. For most patients it lasts for a day and a half to 3 days. Can I shower or bathe after surgery? Yes, you can shower or bathe after surgery but you have to put a plastic bag over your splint/dressing to keep the splint/bandage absolutely dry. The splint/bandage is like a sponge and any water that gets in can damage your skin or cause your incision/incisions to open up and get infected. If your splint/bandage gets water in it, call Dr. Bassett's office ([phone]) immediately and you will beinstructed which office can see your the quickest to change your splint/bandage. documented in this encounter* Discharge Instr - Activity* Rusty Bassett MD - 07/27/2020 8:28 AM EDT Weight-bearing and post-operative activity Dr Bassett wants you to be nonweight bearing on the Right lower extremity. You will continue this weight bearing restriction until your 2 week followup and then your ability to put weight on the operative extremity will be updated. If you have any problems maintaining this weight bearing status please call the office so that appropriate instructions can be given. Dr. Bassett wants you to get up once per hour during the day to move around for a few minutes while following the above weight bearing orders. He does not want you to be in bed or on a couch all day not getting up. Getting up and moving once per hour helps to promote blood flow and is one way of trying to prevent a blood clot. Remember that when you get up it is normal for your foot/toes to change color and for you to feel fluid, pressure or throbbing (your heart beat) in your foot or toes. When you return to sitting down or laying down elevate your foot as it will lessen your swelling and be more comfortable. If you are having a hard time moving around during the day, let Dr Bassett know. * Discharge Instr - Diet* Rusty Bassett MD - 07/27/2020 8:29 AM EDT ? Good nutrition is important when healing from an illness, injury, or surgery. Follow any nutrition recommendations given to you during your hospital stay. ? If you were given an oral nutrition supplement while in the hospital, continue to take this supplement at home. You can take it with meals, in-between meals, and/or before bedtime. These supplements can be purchased at most local grocery stores, pharmacies, and chain HDF-stores. ? If you have any questions about your diet or nutrition, call the hospital and ask for the dietitian. * Additional Instructions* Rusty Bassett MD - 07/27/2020 If you have any questions please call Dr Bassett's office ([phone]), all calls after 4:30 pm or anytime on Sunday or Sunday go through the answering service. The nurse at the answering service will triage your call to determine if the at night on-call physician needs to be called (this may notbe Dr Bassett but one of his partners if Dr Bassett is not school transportation director). Any calls regarding medication refills will be handled by the office during usual business hours Sunday-Sunday. If you call for medication refills after hours or on the weekend you will have to wait until the next business day. BANDAGE INSTRUCTIONS: Keep your bandage clean and dry. Do not put anything down under the dressings to scratch. If your bandage gets wet or starts to feel uncomfortable call Dr Bassett's office immediately ([phone]). Leave the dressing in place, you do not need to change it unless you are instructed to do so by . If there are problems with the dressing (it feels to tight, too loose, it gets wet) call 's office. If you see any blood on the bandage reinforce it on the surface with gauze and an gaurav bandage and call Dr Bassett's office. Please call if you have any questions concerning your bandage/splint. ACTIVITY: The first 2 weeks after surgery is the most important time for healing. Please take this time to rest and give yourself the best chance to have a good outcome. Doing too much can affect your healing.If you are not sure how active you can be please call Dr Bassett. You should get up and move around once or twice an hour based on your comfort level. You are not prashant at bed rest meaning you need to get up and move around in order to prevent blood clots. It is OK to wiggle your toes and you can contract your calf muscle as well. When you put your foot down it is normal for the toes to turn a bluish or purple color. Once you elevate the foot for a few minutes a normal pink color should return underneath the toenails. If the color does not change within [address] Bassett's office. Keep your foot/ankle elevated for comfort. Elevation is the best way to alleviate pain and decreaseyour swelling (swelling causes pain by itself). Elevation means keeping the toes at the level of your nose. If your leg is not elevated to that height then it is not truly elevated. MEDICATIONS You have been given a prescription for a narcotic medication that is intended for postoperative pain control. This medication should be used judiciously to try and minimize your discomfort after surgery. The medication will not relieve all of your pain and you should not take large amounts of the medication in an attempt to be pain free. Please understand that narcotic medications can be addictive and they are intended to decrease but not eliminate your pain and should therefore be used in moderation. If you have questions regarding taking the narcotic medication and other medications that you are currently on please call the office. You cannot drive or operate machinery while taking the narcotic medication. You should not drink alcohol or use recreational drugs while taking the narcotic medication.[facility] restricts the amount of pain pills that can be legally prescribed and no more than one prescription in a week can be given. If you require a refill of the pain medication it requires that someone come to the office in person as it cannot be called in to the pharmacy or E-prescribed. Please understand that there is a limit to the total amount of pain medication that canbe prescribed so make every effort to take it only when needed. Unless otherwise instructed by Dr Bassett you can take an over the counter anti-inflammatory to help with your pain as well. This includes but is not limited to Ibuprofen, Advil, Motrin, Alleve, etc. A prescription for baby aspirin was sent to your pharmacy and Dr. Bassett wants you to take one tablet once a day. If you have any issues with the medication call Dr. Bassett. WEIGHTBEARING INSTRUCTIONS Dr Bassett wants you to be nonweight bearing on the Right lower extremity. You will continue this weight bearing restriction until your 2 week followup and then your ability to put weight on the operative extremity will be updated. If you have any problems maintaining this weight bearing status please call the office so that appropriate instructions can be given. FREQUENTLY ASKED QUESTIONS If I am supposed to be non-weight bearing on the operative foot/ankle can I still rest the foot on the ground when I am sitting? Yes, it is OK to rest your operative foot on the ground when you are sitting. Is it normal to feel a mendez of fluid or pressure in my foot/ankle when I put it down? Yes, after most foot, ankle or leg surgeries it is very common to feel immediate swelling or pressure in your foot, ankle and leg. Is it OK to put ice on my foot/ankle to help with the swelling and pain? After foot/ankle surgery elevating the foot/ankle is much better at relieving pain and swelling than ice. In many cases you bandage prevents the cold from getting to your skin. At your 2 week visit when your bandage is removed, icing the foot/ankle works much better and you can start it then. If I received a nerve block before surgery, how long will it last? A single shot nerve block can last anywhere from 8 hours to 36 hours on average, some patients' single shot blocks stop sooner and some can go a little longer. A catheter block (pain ball) lasts longer when you have it dialed down and it runs out faster if you have it dialed up. For most patients it lasts for a day and a half to 3 days. Can I shower or bathe after surgery? Yes, you can shower or bathe after surgery but you have to put a plastic bag over your splint/dressing to keep the splint/bandage absolutely dry. The splint/bandage is like a sponge and any water that gets in can damage your skin or cause your incision/incisions to open up and get infected. If your splint/bandage gets water in it, call Dr. Bassett's office ([phone]) immediately and you will beinstructed which office can see your the quickest to change your splint/bandage. documented in this encounter History of Present Illness * Gagan Deluca MD - 11/05/2018 5:09 PM EST Gagan Deluca MD [facility] Hospitalists DAILY PROGRESS NOTE Patient Name: Siobhan Haas PCP: Rigo Shelton DO Perpetual Assessment: Siobhan Haas is a 58 y.o. female who presented from home on 11/01/2018 with 1 day complaint of right foot redness and swelling surrounding her incision site. [facility] was consulted for medical management. Assessment and Plan Right foot cellulitis - The etiology due to recent hardware failure/screw - Stable - She is s/p OR on 11/04 with removal of screw from right foot. No evidence of deep infection per prelim Op note. - Continue with IV ancef on discharge per ID and Ortho recs Chronic bilateral lower extremity edema - Possibly from venous insufficiency - Stable - Home lasix and aldactone held in prep for surgery. Restarted on 11/05/18 Hypokalemia - Secondary to her aggressive diuretic regimen in the context of normal kidney function - Improved - Repeat labs stable on 11/05 - Resume home potassium on discharge Chronic regional pain syndrome type I of the lower extremities, bilateral - Stable - Continue with neurontin and flexeril Obstructive sleep apnea on BiPAP - Continue with BIPAP Essential hypertension - BP is stable - Continue with aldactone and lasix (on hold day of surgery) Overactive bladder with urinary incontinence - History of post InterStim placement - Stable Morbid obesity - BMI 47.9 with underlying FAY Code Status: full DVT Prophylaxis Lovenox Disposition and Comments Medically stable for discharge pending PICC placement today CC / Reason for follow up: Medical management SUBJECTIVE: Pain controlled, vitals remains stable. Afebrile. No cp/sob/n/v. ROS: < >> The following system(s) were reviewed. Pertinent positive and negative findings are noted in the HPI. [x] Const [] Eyes [] ENT [x] Resp [x] CV [x] GI [] [] Neuro [] Musc [] Skin [] Psych [] Endo [] Allergy [] Heme/Lymph PHYSICAL EXAMINATION: << >>>>> Temp: [97.5 F (36.4 C)-98.4 F (36.9 C)] 98.4 F (36.9 C) Heart Rate: [66-78] 76 Resp: [12-18] 14 BP: (96-146)/(60-84) 106/60 GENERAL: NAD EYES: Conjunctiva and sclera clear. ENT: Hearing intact. CV: Reg, no murmur. No JVD. +1 edema in the lower ext b/l. RESP: Clear, no rales, rhonchi, wheezes. No increase in respiratory effort. GI: Non-distended, +BS, soft, non-tender. SKIN: Right foot bandaged post-op without active drainage. NEURO: Alert, Ox3. Grossly normal motor and sensory exam. No focal deficits. PSYCH: Mood and affect are appropriate. I/O s last 3 shifts: I/O last 3 completed shifts: In: 1594.5 [I.V.:1005; IV Piggyback:589.5] Out: 755 [Urine:750; Blood:5] Reviewed 11/05/18 5:09 PM: [x] Laboratory [x] Transcriptions [x] Radiology [] Microbiology [] Cardiology [] Outside Records [x] Medications [] Family Time Spent/CCM Time: 25 minutes * Elyssa Palafox - 11/05/2018 3:05 PM EST 11/05/18 1505 Clinical Encounter Type Visit Type Non Crisis Non Crisis Visit Attempt Visited With Patient not available (Patient with healthcare) Visit Length (minutes) 1-15 Patient Spiritual Assessment Spiritual Assessed Unable to Assess Pastoral Care Team will remain available to support patient and family PRN. Rev. Elyssa Palafox MDiv Staff Audio Specialist, [facility] Sunday and Sunday, Sunday, , Sunday Pastoral Care Department To request a library associate, please put in a spiritual consult for a library associate or Vocera Pastoral Care * Holly Suh CNP - 11/05/2018 11:41 AM EST DAILY PROGRESS NOTE Patient Name: Siobhan Haas MR #: [id number] Assessment/Plan: Cellulitis of right foot Assessment & Plan POD #1 - Pt HD stable - Pain tolerable with oral pain meds - Cont IS q1 hr - Cont dvt prophylaxis with Lovenox, adam hose, and early ambulation as tolerated - Cont NWB - ID consult, Dr. Bonner following. - Continue IV antibiotics per ID at discharge (Ancef). PICC line to be placed today. - Cont bowel regimen - Maintain dressing - Pt seen and evaluated by PT, pt has all dme - Ortho stable, okay to dc today once home health arranged for IV antibiotics and PICC placed. - [facility] for medical management, appreciate care, plan discussed with Dr. Deluca. - Questions answered. Patient updated at bedside. Patient seen and plan discussed with Dr. Shelton. Subjective/Objective: Perpetual Assessment: POD #1 HARDWARE REMOVAL RIGHT FOOT INCISION AND DRAINAGE. Patient doing well.Pain is controlled. Tolerating diet. No nausea or vomiting.Voiding. Did well ambulating with therapy. Wants to go home. Physical Examination: BP 128/79 (BP Location: Right arm, Patient Position: Lying) Pulse 68 Temp 97.5 F (36.4 C) (Oral) Resp 14 Ht 5' 7 Wt (!) 138.7 kg (305 lb 12.5 oz) SpO2 96% BMI 47.89 kg/m General: NAD; Alert and oriented x3 Lungs: Clear without rales, rhonchi or wheezes; no increased respiratory effort Cardiovascular: RRR; no edema Abdomen: Positive bowel sounds; soft; non tender Foot and Ankle Post-Op Exam: RLE post op dressing CDI. NVI. Moving toes. Cap Refill less than 3 sec. Extremity pink and warm. Psych: Mood and affect appropriate. Skin: No rashes; normal turgor. Intake/Output last 3 shifts: I/O last 3 completed shifts: In: 1594.5 [I.V.:1005; IV Piggyback:589.5] Out: 755 [Urine:750; Blood:5] Results/Medications Reviewed 11/05/18 11:26 AM: Laboratory, Medications and Transcriptions Assessment Detail: Based on current clinical information, the expected discharge date is: today (11/05/2018) * Gagan Deluca MD - 11/04/2018 3:57 PM EST Gagan Deluca MD [facility] DAILY PROGRESS NOTE Patient Name: Siobhan Haas PCP: Rigo Shelton DO Perpetual Assessment: Siobhan Haas is a 58 y.o. female who presented from home on 11/01/2018 with 1 day complaint of right foot redness and swelling surrounding her incision site. [facility] was consulted for medical management. Assessment and Plan Right foot cellulitis - The etiology due to recent hardware failure/screw - Stable - She is s/p OR on 11/04 with removal of screw from right foot. No evidence of deep infection per prelim Op note. - Continue with IV ancef with likely transition to PO regimen on discharge. Chronic bilateral lower extremity edema - Possibly from venous insufficiency - Stable - Home lasix and aldactone held in prep for surgery. Will restart on 11/05 pending repeat BMP level. Hypokalemia - Secondary to her aggressive diuretic regimen in the context of normal kidney function - Improved - Holding home Kdur as she is off her diuretics - Repeat labs on 11/05 Chronic regional pain syndrome type I of the lower extremities, bilateral - Stable - Continue with neurontin and flexeril Obstructive sleep apnea on BiPAP - Continue with BIPAP Essential hypertension - BP is stable - Continue with aldactone and lasix (on hold day of surgery) Overactive bladder with urinary incontinence - History of post InterStim placement - Stable Morbid obesity - BMI 47.9 with underlying FAY Code Status: full DVT Prophylaxis Lovenox Disposition and Comments Will continue to follow CC / Reason for follow up: Medical management SUBJECTIVE: Seen post-op. Pain controlled, vitals stable. No cp/sob/n/v. ROS: < >> The following system(s) were reviewed. Pertinent positive and negative findings are noted in the HPI. [x] Const [] Eyes [] ENT [x] Resp [x] CV [x] GI [] [] Neuro [] Musc [] Skin [] Psych [] Endo [] Allergy [] Heme/Lymph PHYSICAL EXAMINATION: << >>>>> Temp: [97.7 F (36.5 C)-99.1 F (37.3 C)] 99.1 F (37.3 C) Heart Rate: [67-87] 77 Resp: [10-23] 14 BP: (101-169)/(63-135) 101/67 GENERAL: NAD EYES: Conjunctiva and sclera clear. ENT: Hearing intact. CV: Reg, no murmur. No JVD. +1 edema in the lower ext b/l. RESP: Clear, no rales, rhonchi, wheezes. No increase in respiratory effort. GI: Non-distended, +BS, soft, non-tender. SKIN: Right foot bandaged post-op without active drainage. NEURO: Alert, Ox3. Grossly normal motor and sensory exam. No focal deficits. PSYCH: Mood and affect are appropriate. I/O s last 3 shifts: I/O last 3 completed shifts: In: 3005.5 [P.O.:2360; IV Piggyback:645.5] Out: - Reviewed 11/04/18 3:57 PM: [x] Laboratory [x] Transcriptions [x] Radiology [] Microbiology [] Cardiology [] Outside Records [x] Medications [] Family Time Spent/CCM Time: 25 minutes * Dorina Wade RN - 11/04/2018 7:52 AM EST See inpt assessment * Layton Montaño MD - 11/03/2018 11:58 AM EST Layton Montaño MD [facility] Hospital[facility] DAILY PROGRESS NOTE Patient Name: Siobhan Haas PCP: Rigo Shelton DO Perpetual Assessment: Siobhan Haas is a 58 y.o. female who presented from home on 11/01/2018 with 1 day complaint of right foot redness and swelling surrounding her incision site. [facility] was consulted for medical management. Assessment and Plan Right foot cellulitis - The etiology due to recent hardware failure/screw - Stable - Ortho will plan surgery on Sunday for removal of screw - Continue with IV ancef Chronic bilateral lower extremity edema - Possibly from venous insufficiency - Stable - Will hold lasix and aldactone in prep for the surgery tomorrow Hypokalemia - Secondary to her aggressive diuretic regimen in the context of normal kidney function - Resolved - Holding home Kdur as she is off her diuretics Chronic regional pain syndrome type I of the lower extremities, bilateral - Stable - Continue with neurontin and flexeril Obstructive sleep apnea on BiPAP - Continue with BIPAP Essential hypertension - BP is stable - Continue with aldactone and lasix Overactive bladder with urinary incontinence - History of post InterStim placement - Stable Code Status: full DVT Prophylaxis Lovenox Disposition and Comments Will continue to follow CC / Reason for follow up: Medical management SUBJECTIVE: No complaints ROS: < >> The following system(s) were reviewed. Pertinent positive and negative findings are noted in the HPI. [x] Const [] Eyes [] ENT [x] Resp [x] CV [x] GI [] [] Neuro [] Musc [] Skin [] Psych [] Endo [] Allergy [] Heme/Lymph PHYSICAL EXAMINATION: << >>>>> Temp: [97.8 F (36.6 C)-98.3 F (36.8 C)] 98.1 F (36.7 C) Heart Rate: [66-80] 79 Resp: [14-16] 16 BP: (114-141)/(66-95) 137/84 GENERAL: NAD EYES: Conjunctiva and sclera clear. ENT: Hearing intact. CV: Reg, no murmur. No JVD. +1 edema in the lower ext b/l. RESP: Clear, no rales, rhonchi, wheezes. No increase in respiratory effort. GI: Non-distended, +BS, soft, non-tender. SKIN: Right foot incisions noted with erythema surrounding the medial incision. No purulence no drainage. NEURO: Alert, Ox3. Grossly normal motor and sensory exam. No focal deficits. PSYCH: Mood and affect are appropriate. I/O s last 3 shifts: I/O last 3 completed shifts: In: 4201.9 [P.O.:3480; IV Piggyback:721.9] Out: 250 [Urine:250] Reviewed 11/03/18 11:58 AM: [] Laboratory [x] Transcriptions [] Radiology [] Microbiology [] Cardiology [] Outside Records [x] Medications [] Family Time Spent/CCM Time: * Loi Sheltonolajasmine Seo, - 11/03/2018 11:10 AM EST Daily Progress Note Assessment/Plan: 1. S/p revision midfoot/hindfoot arthrodeses. 2. Suspected partial hardware failure (isolated medial screw) I do not believe this is cellulitis. I believe it is due to the large lag screw across the TNJ thatis loose causing an inflammatory response and trying to create a sinus tract. No gross signs of infection. Patient will be NPO after midnight for right foot HWR tomorrow am. After a thorough history and physical examination was completed as well as review of pertinent imaging studies it was felt that the patient is a good surgical candidate and the patient wishes to proceed with surgical intervention. The patient is not a candidate for conservative care. All risks, benefits and treatment alternatives were discussed with the patient in detail and they did verbalize understanding and confirmed this by signing and dating my surgical risks form in addition to the informed surgical consent form. We will schedule them at their earliest convenience. Procedure(s): right foot deep hardware removal with possible irrigation and debridement and surgery as indicated. Active Problems: Cellulitis of right foot SNOMED CT(R): CELLULITIS OF RIGHT FOOT LOS: 1 day Subjective: Interval History: The patient continues to have a chief complaint of right foot concern for cellulitis . They admit to some increased erythema to the medial wound. Their symptoms began 3 day(s) ago. Today, the patient rates the pain as 5/10. The problem is located in the right medial and lateral hindfoot and midfoot. The patient has tried IV abx overnight, boot, surgery in the form of HWR w/ revion TNJ fusion, Ice & elevation and rest for this condition previously. The patient s symptoms improved with surgery. . The patient does not have advanced imaging to review today. The patient was seen at an [facility] ED and transferred here for possible cellulitis. 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 She does have a screw that is loose that I was hoping would not be an issue and I have been fully aware of it. It was used to gain compression across the TNJ and was noted to be loose intra op but I left it in in an effort to try and control/prevent some translation of the joint. Objective: Vital signs in last 24 hours: Temp: [97.8 F (36.6 C)-98.3 F (36.8 C)] 97.8 F (36.6 C) Heart Rate: [66-80] 79 Resp: [14-16] 16 BP: (114-141)/(66-95) 141/82 Physical Exam: Extremity: right foot Alignment: neutral ankle/hindfoot/midfoot/forefoot Tenderness to palpation: medial midfoot Range of motion: limited due to post op period Stability: limited exam due to post op period Motor function: motor function appears to be 5/5 globally Neurovascular examination: sensation appears to be grossly intact with capillary refill less than 3seconds and brisk in all five digits Skin: wound present medially and laterally. mild erythema medially. some delayed wound healing thatis improving. no drainage. does not appear to be cellulitic but likely inflammatory due to screw medially. Laboratory and Additional Data Reviewed: Laboratory 11/03/18 11:10 AM Radiology 11/03/18 11:10 AM Medications 11/03/18 11:10 AM Transcriptions 11/03/18 11:10 AM * Layton Montaño MD - 11/02/2018 11:05 AM EST Layton Montaño MD [facility] Hospitalists DAILY PROGRESS NOTE Patient Name: Siobhan Haas PCP: Rigo Shelton DO Perpetual Assessment: Siobhan Haas is a 58 y.o. female who presented from home on 11/01/2018 with 1 day complaint of right foot redness and swelling surrounding her incision site. [facility] was consulted for medical management. Assessment and Plan Right foot cellulitis - The etiology due to recent hardware failure/screw - Ortho will plan surgery on Sunday for removal of screw - Continue with IV ancef Chronic bilateral lower extremity edema - Possibly from venous insufficiency - Stable - Continue with lasix and aldactone Hypokalemia - Secondary to her aggressive diuretic regimen in the context of normal kidney function - Will continue with replacement Chronic regional pain syndrome type I of the lower extremities, bilateral - Stable - Continue with neurontin and flexeril Obstructive sleep apnea on BiPAP - Continue with BIPAP Essential hypertension - BP is stable - Continue with aldactone and lasix Overactive bladder with urinary incontinence - History of post InterStim placement -No issues Code Status: full DVT Prophylaxis Lovenox Disposition and Comments Will follow CC / Reason for follow up: Medical management SUBJECTIVE: No complaints ROS: < >> The following system(s) were reviewed. Pertinent positive and negative findings are noted in the HPI. [x] Const [] Eyes [] ENT [x] Resp [x] CV [x] GI [] [] Neuro [] Musc [] Skin [] Psych [] Endo [] Allergy [] Heme/Lymph PHYSICAL EXAMINATION: << >>>>> Temp: [97.8 F (36.6 C)-98.8 F (37.1 C)] 98.4 F (36.9 C) Heart Rate: [69-91] 91 Resp: [14-18] 16 BP: (127-156)/(82-94) 155/84 GENERAL: NAD EYES: Conjunctiva and sclera clear. ENT: Hearing intact. CV: Reg, no murmur. No JVD. +1 edema in the lower ext b/l. RESP: Clear, no rales, rhonchi, wheezes. No increase in respiratory effort. GI: Non-distended, +BS, soft, non-tender. SKIN: Right foot incisions noted with erythema surrounding the medial incision. No purulence no drainage. NEURO: Alert, Ox3. Grossly normal motor and sensory exam. No focal deficits. PSYCH: Mood and affect are appropriate. I/O s last 3 shifts: I/O last 3 completed shifts: In: 1157.5 [P.O.:755; IV Piggyback:402.5] Out: 250 [Urine:250] Reviewed 11/02/18 11:05 AM: [] Laboratory [x] Transcriptions [] Radiology [] Microbiology [] Cardiology [] Outside Records [x] Medications [] Family Time Spent/CCM Time: * Rigo Shelton, DO - 11/02/2018 7:39 AM EST Daily Progress Note Assessment/Plan: 1. S/p revision midfoot/hindfoot arthrodeses. 2. Suspected partial hardware failure (isolated medial screw) I do not believe this is cellulitis. I believe it is due to the large lag screw across the TNJ thatis loose causing an inflammatory response and trying to create a sinus tract. No gross signs of infection. I would like to keep the patient on IV abx as a precaution and will plan to do a small hardware removal on Sunday am to remove the loose screw. This typically alleviates these types of problems quickly. Please call with questions. Active Problems: Cellulitis of right foot SNOMED CT(R): CELLULITIS OF RIGHT FOOT LOS: 0 days Subjective: Interval History: The patient continues to have a chief complaint of right foot concern for cellulitis . They admit to some increased erythema to the medial wound. Their symptoms began 2 day(s) ago. Today, the patient rates the pain as 5/10. The problem is located in the right medial and lateral hindfoot and midfoot. The patient has tried IV abx overnight, boot, surgery in the form of HWR w/ revion TNJ fusion, Ice & elevation and rest for this condition previously. The patient s symptoms improved with surgery. . The patient does not have advanced imaging to review today. The patient was seen at an [facility] ED and transferred here for possible cellulitis. 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 She does have a screw that is loose that I was hoping would not be an issue and I have been fully aware of it. It was used to gain compression across the TNJ and was noted to be loose intra op but I left it in in an effort to try and control/prevent some translation of the joint. Objective: Vital signs in last 24 hours: Temp: [97.8 F (36.6 C)-98.8 F (37.1 C)] 98.4 F (36.9 C) Heart Rate: [69-100] 91 Resp: [14-18] 14 BP: (127-156)/(82-98) 155/84 Physical Exam: Extremity: right foot Alignment: neutral ankle/hindfoot/midfoot/forefoot Tenderness to palpation: medial midfoot Range of motion: limited due to post op period Stability: limited exam due to post op period Motor function: motor function appears to be 5/5 globally Neurovascular examination: sensation appears to be grossly intact with capillary refill less than 3seconds and brisk in all five digits Skin: wound present medially and laterally. mild erythema medially. some delayed wound healing thatis improving. no drainage. does not appear to be cellulitic but likely inflammatory due to screw medially. Laboratory and Additional Data Reviewed: Laboratory 11/02/18 7:47 AM Radiology 11/02/18 7:47 AM Medications 11/02/18 7:47 AM Transcriptions 11/02/18 7:47 AM in this encounter* Ned Abreu RN - 05/08/2019 10:18 PM EDT Pt medicated when PRN medication was available. Pt still rating pain at 10/10 at this time and currently shaking and crying in bed. Paged [employer] school transportation director pager again. * Ned Abreu RN - 05/08/2019 9:17 PM EDT Paged [employer] transportation director pager at this time regarding patient pain. Pt stating pain is a 10/10 and is shaking in bed. Pain meds not due at this time. * Niranjan Pacheco MD - 05/08/2019 7:46 PM EDT Department of Internal Medicine General Internal Medicine Attending Progress Note SUBJECTIVE: Patient seen and examined. Had surgery done, appears to be relieved to have gotten BKA.Had increased pain issues yesterday. Repeat nerve block done Medications Current Facility-Administered Medications: amoxicillin-clavulanate (AUGMENTIN) 875-125 MG per tablet 1 tablet, 1 tablet, Oral, 2 times per day cyclobenzaprine (FLEXERIL) tablet 10 mg, 10 mg, Oral, TID PRN morphine sulfate (PF) injection 4 mg, 4 mg, Intravenous, Q6H PRN docusate sodium (COLACE) capsule 100 mg, 100 mg, Oral, Daily aspirin EC tablet 81 mg, 81 mg, Oral, Daily mometasone-formoterol (DULERA) 200-5 MCG/ACT inhaler 2 puff, 2 puff, Inhalation, BID citalopram (CELEXA) tablet 40 mg, 40 mg, Oral, Daily furosemide (LASIX) tablet 40 mg, 40 mg, Oral, BID gabapentin (NEURONTIN) capsule 300 mg, 300 mg, Oral, BID cetirizine (ZYRTEC) tablet 10 mg, 10 mg, Oral, Daily LORazepam (ATIVAN) tablet 0.5 mg, 0.5 mg, Oral, Q6H PRN metolazone (ZAROXOLYN) tablet 5 mg, 5 mg, Oral, QAM montelukast (SINGULAIR) tablet 10 mg, 10 mg, Oral, Nightly pantoprazole (PROTONIX) tablet 40 mg, 40 mg, Oral, QAM AC ramipril (ALTACE) capsule 5 mg, 5 mg, Oral, Daily sodium chloride flush 0.9 % injection 10 mL, 10 mL, Intravenous, 2 times per day sodium chloride flush 0.9 % injection 10 mL, 10 mL, Intravenous, PRN magnesium hydroxide (MILK OF MAGNESIA) 400 MG/5ML suspension 30 mL, 30 mL, Oral, Daily PRN ondansetron (ZOFRAN) injection 4 mg, 4 mg, Intravenous, Q6H PRN enoxaparin (LOVENOX) injection 40 mg, 40 mg, Subcutaneous, Daily acetaminophen (TYLENOL) tablet 650 mg, 650 mg, Oral, Q4H PRN oxyCODONE (OXY-IR) immediate release tablet 7.5 mg, 7.5 mg, Oral, Q4H PRN melatonin tablet 9 mg, 9 mg, Oral, Nightly PRN OBJECTIVE: VITALS: BP 128/74 Pulse 80 Temp 96.7 F (35.9 C) (Temporal) Resp 17 Ht 5' 7 (1.702 m) Wt (!) 320 lb (145.2 kg) SpO2 94% BMI 50.12 kg/m CONSTITUTIONAL: awake, alert, cooperative, no apparent distress. EYES: Lids and lashes normal, pupils equal, round and reactive to light, extra ocular muscles intact ENT: Normocephalic, without obvious abnormality, oral pharynx with moist mucus membranes NECK: Supple, symmetrical, trachea midline, no adenopathy, thyroid symmetric, not enlarged and no tenderness, skin normal LUNGS: No increased work of breathing, good air exchange, clear to auscultation bilaterally CARDIOVASCULAR: Normal apical impulse, regular rate and rhythm, normal S1 and S2 ABDOMEN: Normal bowel sounds, soft, non-distended, non-tender, no hepatosplenomegaly. Right Lower abdomen incision is red and swollen,. [place] intact. No pus. MUSCULOSKELETAL: No leg edema or calf tenderness. Right BKA. stump wrapped NEUROLOGIC: Awake, alert, oriented to name, place and time. Cranial nerves II- XII are grossly intact. No focal deficits noted. SKIN: no bruising or bleeding. Warm and dry. PSYCHOLOGICALl: Mood and affect are normal. Pleasant and cooperative Data CBC with Differential: Lab Results Component Value Date WBC 10.9 05/08/2019 RBC 3.17 05/08/2019 HGB 8.9 05/08/2019 HCT 26.4 05/08/2019 PLT 346 05/08/2019 MCV 83.5 05/08/2019 MCH 28.3 05/08/2019 MCHC 33.8 05/08/2019 RDW 14.9 05/08/2019 METASPCT 1 04/08/2019 LYMPHOPCT 6.9 05/08/2019 MONOPCT 8.2 05/08/2019 BASOPCT 0.4 05/08/2019 MONOSABS 0.9 05/08/2019 LYMPHSABS 0.8 05/08/2019 EOSABS 0.0 05/08/2019 BASOSABS 0.0 05/08/2019 BMP: Lab Results Component Value Date NA 138 05/08/2019 K 3.1 05/08/2019 CL 99 05/08/2019 CO2 28 05/08/2019 BUN 17 05/08/2019 CREATININE 0.90 05/08/2019 CALCIUM 8.9 05/08/2019 GLUCOSE 143 05/08/2019 Albumin: No results found for: ALB Magnesium: Lab Results Component Value Date MG 1.8 05/04/2019 Phosphorus: No results found for: PHOS Urine Culture: No components found for: CURINE Blood Culture: No components found for: CBLOOD, CFUNGUSBL X-rays reviewed and agree with the radiologists interpretation ASSESSMENT AND PLAN: Patient Active Problem List Diagnosis Asthma with acute exacerbation Back pain Depression Hemorrhage of rectum and anus Hypertension Asthma Osteomyelitis of right foot (HCC) Post-op pain Postoperative pain Hardware complicating wound infection (HCC) MSSA (methicillin susceptible Staphylococcus aureus) infection Open wound of right foot Cellulitis Hematoma Cellulitis of right foot Right foot pain Right foot infection Osteomyelitis (HCC) 1: . History of fracture Right foot s/p talonavicular fusion October 2018 at OSH, Post operative wound infections November 2018 MSSA s/p course of IV antibiotics , Multiple wound debridements, hardware removal and spacer with removal of spacer on 04-01-19 with placement of skin graft , repeat debridement 04-08-19 and on 04-22-19 patient with repeat debridement and autologous bone graft - S/p BKA. 2. Swelling /redness of surgical sites: on s antibiotics, ID managing. 3: Morbid obesity : chronic. 4: Pain control: with oxycodone. bowel regimen, prn IV morphine, 5: Hypokalemia: corrected. 6: HTN: Continue Home meds. 7: depression: Continue celexa 8: RLS: Continue mirapex. DVt and GI prophylaxis DC planning: waiting for [employer] to provide with prosthesis, after which she can be sent to rehab NIRANJAN PACHECO MD * Vinh Ventura RN - 05/08/2019 4:46 PM EDT Ok to change hip dressing per Dr. Maximino Pimentel. Also paged Dr. Pacheco as pt insisted on being discontinued from her maintenance fluids. Awaiting response. Pt is on regular diet with good intake and good urinary output * Elma Crenshaw MS, RD, LD - 05/08/2019 3:37 PM EDT Nutrition Assessment Type and Reason for Visit: Reassess Nutrition Recommendations: 1. Continue current General diet. Monitor Glucose trends for need of Carb Control diet restriction;+IV abx. 2. Resume wound healing supplement Bandar BID to provide ~95 kcals and 14g AA per serving. 3. Please continue documenting % meal intakes under I/O Flowsheet. 4. Recommend obtaining current body wt following BKA. 5. Monitor intakes, wt trends, labs, healing, and fluid balance. 6. RD to follow and monitor. Nutrition Assessment: Pt s/p R BKA 05/06. Pt doing well post-op, ortho has signed off. Pt tolerating PO, consuming 75-100% of meals. Malnutrition Assessment: Malnutrition Status: No malnutrition Nutrition Risk Level: High Nutrient Needs: Estimated Daily Total Kcal: 5093-1541 (25-30) Estimated Daily Protein (g): 74-86 gms per day (1.2-1.4) Estimated Daily Total Fluid (ml/day): per MD Nutrition Diagnosis: Problem: Increased nutrient needs Etiology: related to Acute injury/trauma ? Signs and symptoms: as evidenced by Presence of wounds Objective Information: Nutrition-Focused Physical Findings: +I&O, +BS. No edema. Rudi 18. Glucose 105-204, A1C 6.2, +IV abx. Wound Type: Surgical Wound Current Nutrition Therapies: Oral Diet Orders: General Oral Diet intake: 76-100% Oral Nutrition Supplement (ONS) Orders: None Anthropometric Measures: Ht: 5' 7 (170.2 cm) Current Body Wt: (no current wt) Admission Body Wt: 320 lb (145.2 kg)(stated) % Weight Change: , per EPIC review: (02/03/19) 325# standing scale [place] Body Wt: 135 lb (61.2 kg), BMI Classification: BMI > or equal to 40.0 Obese Class III Nutrition Interventions: Continue current diet, Start ONS Continued Inpatient Monitoring Nutrition Evaluation: Evaluation: Goals set Goals: Pt to consume >75% of meals and ONS Monitoring: Meal Intake, Supplement Intake, Diet Tolerance, Skin Integrity, Wound Healing, I&O,Weight, Pertinent Labs Contact Number: [phone] * Maximino Aceves JD, MD - 05/08/2019 2:57 PM EDT Ortho to bedside to check on pt. Pt doing well. RRD in place on RLE, put on by Remigio today 05/08/19. F/u OP with Dr. Bassett in 2wks. Dispo, pain control, and medical management per primary. Ortho signing off. * Keanu Raygoza - 05/08/2019 10:45 AM EDT Physical Therapy Facility/Department: [facility] MED SURG Daily Treatment Note NAME: Siobhan Haas : 1960 Date of Service: 05/08/2019 Discharge Recommendations: IP Rehab Assessment Body structures, Functions, Activity limitations: Decreased functional mobility ;Decreased strength;Decreased balance Assessment: Pt progressing towards transfer goals with min assist to CGA. She states that she has awheelchair and knows how to use it so was not interested in working with one today. Needed 2 attempts to stand from bed as she had difficulty clearing the bed on first try and wanted to try again. Recommend IP rehab at discharge as pt can tolerate 15 hrs of therapy a week. Prognosis: Fair Decision Making: Low Complexity REQUIRES PT FOLLOW UP: Yes Activity Tolerance Activity Tolerance: Patient Tolerated treatment well Patient Diagnosis(es): The encounter diagnosis was Cellulitis of right lower extremity. has a past medical history of Asthma, Cellulitis, Constipation, Depression, Fibromyalgia, GERD (gastroesophageal reflux disease), Hypertension, Morbidly obese (HCC), FAY treated with BiPAP, Osteoarthritis, Osteomyelitis of right foot (HCC), Seasonal allergies, Shortness of breath, and URSULA (stress urinary incontinence, female). has a past surgical history that includes Hysterectomy (1996); Breast surgery (2006); lipoma resection (Right, 2014); Incontinence surgery (11/15/2015); other surgical history (09/21/2016); Tonsillectomy; Colonoscopy; Endoscopy, colon, diagnostic; Foot surgery (Right, 2018); Abdominoplasty; Total knee arthroplasty (Left, 2012); other surgical history; Foot surgery (Right, 02/11/2019); other surgical history (Right, 03/07/2019); orthopedic surgery (Right, 04/01/2019); other surgical history (Right, 04/02/2019); Foot surgery (Right, 04/08/2019); other surgical history (Right, 04/22/2019); Foot surgery (Right, 04/24/2019); and other surgical history (Right, 05/06/2019). Restrictions Restrictions/Precautions Restrictions/Precautions: Weight Bearing Required Braces or Orthoses?: No Lower Extremity Weight Bearing Restrictions Right Lower Extremity Weight Bearing: Non Weight Bearing Position Activity Restriction Other position/activity restrictions: Orders for RRD but not fitted yet. Subjective General Chart Reviewed: Yes Family / Caregiver Present: No Subjective Subjective: Pt supine lying in bed with nurse adjusting her IV. She states that she had a bad nightbut is agreeable for PT. Pt states that she has a wheelchair and knows how to use one so she did not want to work with one at this time. Pain Screening Patient Currently in Pain: Yes Vital Signs Patient Currently in Pain: Yes Orientation Orientation Overall Orientation Status: Within Normal Limits Cognition Cognition Overall Cognitive Status: WNL Objective Bed mobility Supine to Sit: Modified independent Scooting: Modified independent(To EOB and back in chair) Transfers Sit to Stand: Minimal Assistance Stand to sit: Contact guard assistance Bed to Chair: Contact guard assistance Comment: x 2 for sit to stand at EOB, min assist on first attempt and did not get fully upright, ptsat back down to try again, second attempt CGA and much smoother Exercises Straight Leg Raise: RLE x 10 Quad Sets: RLE x 10 Gluteal Sets: x 10 Hip Flexion: RLE x 10(with knee flex) Hip Abduction: RLE x 10 Knee Short Arc Quad: RLE x 10 Comments: Pt given HEP for BKA sheet and instructed on contracture prevention and desensitization of area. AM-PAC Score AM-PAC Inpatient Mobility Raw Score : 15 (05/08/191044) AM-PAC Inpatient T-Scale Score : 39.45 (05/08/191044) Mobility Inpatient CMS 0-100% Score: 57.7 (05/08/191044) Mobility Inpatient CMS G-Code Modifier : CK (05/08/19 1045) Goals Short term goals Time Frame for Short term goals: 2 weeks Short term goal 1: modified independent sit to/from stand - PROGRESSING Short term goal 2: modified independent bed to/from chair or wheelchair - PROGRESSING Short term goal 3: modified independent wheelchair management and propulsion 200 feet - NOT ADDRESSED Patient Goals Patient goals : I just want to live my life Plan Plan Times per week: 5-7 Times per day: Daily Plan weeks: 2 Current Treatment Recommendations: Strengthening, Patient/Caregiver Education & Training, Balance Training, Functional Mobility Training, Transfer Training, Safety Education & Training, Wheelchair Mobility Training Safety Devices Type of devices: Call light within reach, Gait belt, Patient at risk for falls, Left in chair Restraints Initially in place: No Therapy Time Individual Concurrent Group Co-treatment Time In 1004 Time Out 1029 Minutes 25 Timed Code Treatment Minutes: 25 Minutes(TP, FA) LEONARDO De La Torre PTA * Tariq Sotelo DO - 05/08/2019 9:44 AM EDT [facility] - Infectious Diseases Attending Progress Note Subjective: Following for prior right foot/ankle MSSA infection with multiple complications. Reviewed interim history and available chart/notes/labs and studies. Patient underwent excisional debridement of right foot skin and subcutaneous tissue and removal of non-bioabsorbable drug delivery drug implant device and now s/p application of external fixator and bone graft from iliac crest and fusionof right midfoot 04-22 and 04-24 from last admission. Now admitted with ongoing pain and erythema andnow s/p right BKA. She is in good spirit. Vitals: BP 120/69 Pulse 74 Temp 97.9 F (36.6 C) (Temporal) Resp 18 Ht 5' 7 (1.702 m) Wt (!) 320 lb (145.2 kg) SpO2 95% BMI 50.12 kg/m Intake/Output Summary (Last 24 hours) at 05/08/2019 0944 Last data filed at 05/08/2019 0434 Gross per 24 hour Intake 2562 ml Output 200 ml Net 2362 ml Physical Exam Constitutional: She is oriented to person, place, and time. She appears well- developed and well-nourished. No distress. HENT: Head: Normocephalic and atraumatic. Mouth/Throat: Oropharynx is clear and moist. Eyes: Pupils are equal, round, and reactive to light. Conjunctivae and EOM are normal. Neck: Normal range of motion. Neck supple. No thyromegaly present. Pulmonary/Chest: Effort normal. No respiratory distress. Abdominal: She exhibits no distension. Abdominal incision better Musculoskeletal: Normal range of motion. She exhibits deformity (BKA). She exhibits no edema. Neurological: She is alert and oriented to person, place, and time. No cranial nerve deficit. She exhibits normal muscle tone. Skin: Skin is warm. No rash noted. No erythema. Psychiatric: She has a normal mood and affect. Her speech is normal. Thought content normal. Her mood appears not anxious. She does not exhibit a depressed mood. Labs: Component Value Date/Time NA 138 05/08/2019 0304 K 3.1 (L) 05/08/2019 0304 CL 99 05/08/2019 0304 CO2 28 05/08/2019 0304 BUN 17 05/08/2019 0304 CREATININE 0.90 05/08/2019 0304 GLUCOSE 143 (H) 05/08/2019 0304 CALCIUM 8.9 05/08/2019 0304 PROT 7.1 02/14/2019 0320 LABALBU 3.8 02/14/2019 0320 BILITOT 0.5 02/14/2019 0320 ALKPHOS 114 02/14/2019 0320 AST 50 (H) 02/14/2019 0320 ALT 22 02/14/2019 0320 PROCAL <0.10 05/04/2019 1102 PROCAL <0.10 04/09/2019 0236 Component Value Date/Time WBC 10.9 (H) 05/08/2019 0304 HGB 8.9 (L) 05/08/2019 0304 HCT 26.4 (L) 05/08/2019 0304 PLT 346 05/08/2019 0304 GRANULOCYTES 84.5 (H) 05/08/2019 0304 LYMPHOPCT 6.9 (L) 05/08/2019 0304 MONOPCT 8.2 05/08/2019 0304 LABEOS 0.0 (L) 05/08/2019 0304 BASOPCT 0.4 05/08/2019 0304 NEUTROABS 9.2 (H) 05/08/2019 0304 Micro: Blood cultures: No results found for: BC Aerobic Culture 05/06/2019 4:[address] [facility] No growth to date. Gram Stain Result 05/06/2019 4:[address] [facility] Many polymorphonuclear cells/lpf. No organisms seen. Reviewed all relevant labs and microbiology data. Lines: PIV Radiography/Echo/Other: Right foot x-ray Imaging studies personally reviewed Antimicrobials, Start/End Dates: Daptomycin Piperacillin-tazobactam Impression: 1. Prior right foot/ankle MSSA osteomyelitis 2. Multiple wound debridements, hardware removal and spacer with removal of spacer on 04-01-19 with placement of skin graft , repeat debridement 04-08-19 and on 04-22-19 patient with repeat debridement and autologous bone graft 3. Probable infected right lower quadrant incision 4. Morbid obesity Plan: 1. De-escalate to oral amoxicillin-clavulanate for a course through the weekend (05-11-2019) 2. Continue post-op wound and stump care 3. OK to discharged from ID standpoint Will sign-off please call with questions Pager: [phone] . * Charlie Estevez MD - 05/08/2019 6:12 AM EDT [facility] MED SURG [address] [place], [place] [id number] Dept: [phone] Loc: [phone] Orthopedic Progress Note Name: Siobhan Haas Date:05/08/2019 Attending:Niranjan Pacheco MD Subjective Patient doing well, pain controlled. States she is happy with how the incision looks. No events o/n. Objective Vitals: Vitals: 05/07/19 2330 05/07/19 2345 05/08/19 0033 05/08/19 0539 BP: 113/65 121/71 (!) 115/58 120/69 Pulse: 80 78 82 74 Resp: 14 15 18 18 Temp: 99.1 F (37.3 C) 97.9 F (36.6 C) TempSrc: Temporal Temporal SpO2: 95% 94% 95% 95% Weight: Height: Physical Exam: General: NAD RLE Dressing/Skin: Clean/Dry/Intact--incision looks well approximated and without drainage or erythema. SILT: Sensation intact at distal remaining part of limb Motor: knee extension and flexion intact Pulses: stump well perfused with <2 second cap refill LABS: Recent Labs 05/06/19 0243 05/07/19 0124 05/08/19 0304 WBC 6.9 11.7* 10.9* HGB 10.4* 10.0* 8.9* HCT 30.8* 30.7* 26.4* PLT 378 390 346 Recent Labs 05/06/1924205/07/1912305/08/19 0304 NA 137 141 138 K 3.5 3.8 3.1* CL 96* 105 99 CO2 30 24 28 BUN 14 15 17 CREATININE 0.95 1.05 0.90 CALCIUM 9.3 8.9 8.9 No results for input(s): INR in the last 72 hours. No results for input(s): SEDRATE, CRP in the last 72 hours. No results for input(s): HCG in the last 72 hours. Assessment Siobhan is a 58 y.o.female s/p right below knee amputation 05/06, I&D right iliac crest donor site Plan -No further operative intervention -NWB RLE -Abx per ID -Dressing changes prn -Yanke c/s for RRD placement 05/08 -Ice/Elevate -PT/OT -Pain control and medical mgmt per 1 -F/u Dr Bassett in 2 weeks Charlie Estevez M.D. Orthopaedic Surgery PGY-1 [phone] * Dania Dubose, RN - 05/07/2019 11:52 PM EDT Waiting on transport. Pt states pain is tolerable. Pt voided approximately 300cc. * Shell Weeks RN - 05/07/2019 10:55 PM EDT TELEPHONE MAINTAINER and anesthesia still at bedside. Second time out performed at 2242 for popliteal block. VSS. Continuing to monitor. * Dania Dubose RN - 05/07/2019 10:45 PM EDT Ortho paged and notified of transfer order and pts co pain. Notified pt receiving nerve blocks. * Dania Dubose RN - 05/07/2019 10:18 PM EDT Pt to pacu for bedside R femoral block by Dr. De La Cruz. TELEPHONE MAINTAINER also at bedside. Timeout performed. Pt tearful. One time dose of Ativan administered per Dr. De La Cruz * Tariq Sotelo DO - 05/07/2019 2:41 PM EDT [facility] - Infectious Diseases Attending Progress Note Subjective: Following for prior right foot/ankle MSSA infection with multiple complications. Reviewed interim history and available chart/notes/labs and studies. Patient underwent excisional debridement of right foot skin and subcutaneous tissue and removal of non-bioabsorbable drug delivery drug implant device and now s/p application of external fixator and bone graft from iliac crest and fusionof right midfoot 04-22 and 04-24 from last admission. Now admitted with ongoing pain and erythema andnow s/p right BKA. Vitals: BP (!) 119/56 Pulse 84 Temp 99.1 F (37.3 C) (Temporal) Resp 18 Ht 5' 7 (1.702 m) Wt (!) 320 lb (145.2 kg) SpO2 92% BMI 50.12 kg/m Intake/Output Summary (Last 24 hours) at 05/07/2019 1441 Last data filed at 05/07/2019 1335 Gross per 24 hour Intake 3890 ml Output 1700 ml Net 2190 ml Physical Exam Constitutional: She is oriented to person, place, and time. She appears well- developed and well-nourished. No distress (due to pain). HENT: Head: Normocephalic and atraumatic. Mouth/Throat: Oropharynx is clear and moist. Eyes: Pupils are equal, round, and reactive to light. Conjunctivae and EOM are normal. Neck: Normal range of motion. Neck supple. No thyromegaly present. Pulmonary/Chest: Effort normal. No respiratory distress. Abdominal: She exhibits no distension. Abdominal incision better Musculoskeletal: Normal range of motion. She exhibits deformity (BKA). She exhibits no edema. External fixator present Neurological: She is alert and oriented to person, place, and time. No cranial nerve deficit. She exhibits normal muscle tone. Skin: Skin is warm. No rash noted. No erythema. Psychiatric: She has a normal mood and affect. Her speech is normal. Thought content normal. Her mood appears not anxious. She does not exhibit a depressed mood. Labs: Component Value Date/Time NA 141 05/07/2019 0124 K 3.8 05/07/2019 0124 CL 105 05/07/2019 0124 CO2 24 05/07/2019 0124 BUN 15 05/07/2019 0124 CREATININE 1.05 05/07/2019 0124 GLUCOSE 204 (H) 05/07/2019 0124 CALCIUM 8.9 05/07/2019 0124 PROT 7.1 02/14/2019 0320 LABALBU 3.8 02/14/2019 0320 BILITOT 0.5 02/14/2019 0320 ALKPHOS 114 02/14/2019 0320 AST 50 (H) 02/14/2019 0320 ALT 22 02/14/2019 0320 PROCAL <0.10 05/04/2019 1102 PROCAL <0.10 04/09/2019 0236 Component Value Date/Time WBC 11.7 (H) 05/07/2019 012 HGB 10.0 (L) 05/07/2019 012 HCT 30.7 (L) 05/07/2019 012 PLT 390 05/07/2019 012 GRANULOCYTES 91.2 (H) 05/07/2019 012 LYMPHOPCT 5.6 (L) 05/07/2019 012 MONOPCT 2.9 05/07/2019 012 LABEOS 0.1 (L) 05/07/2019 012 BASOPCT 0.2 05/07/2019 0124 NEUTROABS 10.6 (H) 05/07/2019 0124 Micro: Blood cultures: No results found for: BC Culture, Aerobic Bacteria with Gram Stai [[id number]] Collected: 05/06/19 1624 Order Status: No result Specimen: Surgical Wound Updated: 05/06/192228 Gram Stain Result Many polymorphonuclear cells/lpf. No organisms seen Reviewed all relevant labs and microbiology data. Lines: PIV Radiography/Echo/Other: Right foot x-ray Imaging studies personally reviewed Antimicrobials, Start/End Dates: Daptomycin Piperacillin-tazobactam Impression: 1. Prior right foot/ankle MSSA osteomyelitis 2. Multiple wound debridements, hardware removal and spacer with removal of spacer on 04-01-19 with placement of skin graft , repeat debridement 04-08-19 and on 04-22-19 patient with repeat debridement and autologous bone graft 3. Probable infected right lower quadrant incision 4. Morbid obesity Plan: 1. Follow culture - likely a short course 2. Wound care Pager: [phone] . * Julia Cole, PT - 05/07/2019 11:53 AM EDT Physical Therapy Facility/Department: [facility] MED SURG Re-evaluation NAME: Siobhan Haas : 1960 Date of Service: 05/07/2019 Discharge Recommendations: IP Rehab PT Equipment Recommendations Equipment Needed: No Assessment Body structures, Functions, Activity limitations: Decreased functional mobility ;Decreased strength;Decreased balance Assessment: Patient with slight decline in mobility following R BKA. However, patient with good participation and pain is not limiting. She would be able to tolerate 15 hours of therapy per week. PT plan of care and goals updated to reflect patient needs following BKA. Patient would benefit from continued PT intervention to progress function and independence. Recommend inpatient rehab at discharge. PT Education: Goals;Plan of Care REQUIRES PT FOLLOW UP: Yes Activity Tolerance Activity Tolerance: Patient Tolerated treatment well Patient Diagnosis(es): The encounter diagnosis was Cellulitis of right lower extremity. has a past medical history of Asthma, Cellulitis, Constipation, Depression, Fibromyalgia, GERD (gastroesophageal reflux disease), Hypertension, Morbidly obese (HCC), FAY treated with BiPAP, Osteoarthritis, Osteomyelitis of right foot (HCC), Seasonal allergies, Shortness of breath, and URSULA (stress urinary incontinence, female). has a past surgical history that includes Hysterectomy (1996); Breast surgery (2006); lipoma resection (Right, 2014); Incontinence surgery (11/15/2015); other surgical history (09/21/2016); Tonsillectomy; Colonoscopy; Endoscopy, colon, diagnostic; Foot surgery (Right, 2018); Abdominoplasty; Total knee arthroplasty (Left, 2012); other surgical history; Foot surgery (Right, 02/11/2019); other surgical history (Right, 03/07/2019); orthopedic surgery (Right, 04/01/2019); other surgical history (Right, 04/02/2019); Foot surgery (Right, 04/08/2019); other surgical history (Right, 04/22/2019); Foot surgery (Right, 04/24/2019); and other surgical history (Right, 05/06/2019). Restrictions Restrictions/Precautions Restrictions/Precautions: Weight Bearing Required Braces or Orthoses?: No Lower Extremity Weight Bearing Restrictions Right Lower Extremity Weight Bearing: Non Weight Bearing Position Activity Restriction Other position/activity restrictions: Orders for RRD but not fitted yet. Subjective General Chart Reviewed: Yes Response To Previous Treatment: Patient with no complaints from previous session. Family / Caregiver Present: Yes Subjective Subjective: Patient sitting in chair. She is agreeable to PT. No complaints. General Comment Comments: PT re-evaluation completed today due to #1 Right Below Knee Amputation, #2 Excisional debridement right iliac crest on 05/06/19. Pain Screening Patient Currently in Pain: Denies Vital Signs Patient Currently in Pain: Denies Oxygen Therapy O2 Device: None (Room air) Orientation Orientation Overall Orientation Status: Within Normal Limits Cognition Cognition Overall Cognitive Status: WNL Objective Bed mobility Supine to Sit: Modified independent Sit to Supine: Modified independent Scooting: Modified independent(seated scoot) Transfers Sit to Stand: Minimal Assistance Stand to sit: Contact guard assistance Bed to Chair: Minimal assistance(with wheeled walker) Comment: chair to bed min assist with wheeled walker Ambulation Ambulation?: No(Patient unable to hop.) WB Status: NWB RLE Stairs/Curb Stairs?: No Balance Sitting - Static: Good Sitting - Dynamic: Good Standing - Static: Fair;- Standing - Dynamic: Fair;- AROM RLE (degrees) RLE AROM: WFL AROM LLE (degrees) LLE AROM : WFL Strength RLE Comment: 3+/5 hip flexion, 3+/5 knee Strength LLE Comment: 4- to 4/5 Other Activities: Re-evaluation performed G-Code OutComes Score AM-PAC Score AM-[facility] Inpatient Mobility Raw Score : 13 (05/07/19 1140) AM-PAC Inpatient T-Scale Score : 36.74 (05/07/19 1140) Mobility Inpatient CMS 0-100% Score: 64.91 (05/07/19 1140) Mobility Inpatient CMS G-Code Modifier : CL (05/07/191139) Goals Short term goals Time Frame for Short term goals: 2 weeks Short term goal 1: modified independent sit to/from stand Short term goal 2: modified independent bed to/from chair or wheelchair Short term goal 3: modified independent wheelchair management and propulsion 200 feet Patient Goals Patient goals : I just want to live my life Plan Plan Times per week: 5-7 Times per day: Daily Plan weeks: 2 Current Treatment Recommendations: Strengthening, Patient/Caregiver Education & Training, Balance Training, Functional Mobility Training, Transfer Training, Safety Education & Training, Wheelchair Mobility Training Safety Devices Type of devices: Call light within reach, Gait belt, Patient at risk for falls, Left in chair Restraints Initially in place: No Therapy Time Individual Concurrent Group Co-treatment Time In 1123(Re-evaluation) Time Out 1138 Minutes 15 Patient s Physical Therapy Plan of Care supervision is transferred to [facility] Physical Therapist. Julia Cole PT * Vane Powell - 05/07/2019 11:28 AM EDT Occupational Therapy Occupational Therapy Re-Evaluation Date: 05/07/2019 Patient Name: Siobhan Haas : 1960 Date of Service: 05/07/2019 Discharge Recommendations: (facility-based therapy) Assessment Performance deficits / Impairments: Decreased functional mobility ;Decreased ADL status;Decreased endurance;Decreased balance;Decreased coordination;Decreased high-level IADLs Assessment: OT re-eval completed. Pt presents with above deficits, limiting func. indep. Pt is a falls and safety risk and is not safe to return home at this time. Pt demos slightly more unsteadinesswith transferring. Recommend facility-based therapy upon discharge. Pt is able to tolerate three hours of therapy a day. Prognosis: Fair Exam: [facility] REQUIRES OT FOLLOW UP: Yes Activity Tolerance Activity Tolerance: Patient Tolerated treatment well Safety Devices Type of devices: Call light within reach;Left in chair Patient Diagnosis(es): The encounter diagnosis was Cellulitis of right lower extremity. has a past medical history of Asthma, Cellulitis, Constipation, Depression, Fibromyalgia, GERD (gastroesophageal reflux disease), Hypertension, Morbidly obese (HCC), FAY treated with BiPAP, Osteoarthritis, Osteomyelitis of right foot (HCC), Seasonal allergies, Shortness of breath, and URSULA (stress urinary incontinence, female). has a past surgical history that includes Hysterectomy (1996); Breast surgery (2006); lipoma resection (Right, 2014); Incontinence surgery (11/15/2015); other surgical history (09/21/2016); Tonsillectomy; Colonoscopy; Endoscopy, colon, diagnostic; Foot surgery (Right, 2018); Abdominoplasty; Total knee arthroplasty (Left, 2012); other surgical history; Foot surgery (Right, 02/11/2019); other surgical history (Right, 03/07/2019); orthopedic surgery (Right, 04/01/2019); other surgical history (Right, 04/02/2019); Foot surgery (Right, 04/08/2019); other surgical history (Right, 04/22/2019); Foot surgery (Right, 04/24/2019); and other surgical history (Right, 05/06/2019). Restrictions Restrictions/Precautions Restrictions/Precautions: Weight Bearing Required Braces or Orthoses?: No Lower Extremity Weight Bearing Restrictions Right Lower Extremity Weight Bearing: Non Weight Bearing Position Activity Restriction Other position/activity restrictions: Pt has orders for RRD but not on yet Subjective General Chart Reviewed: Yes Patient assessed for rehabilitation services?: Yes Additional Pertinent Hx: bone graft with external fixator 04/24; multiple I&D debriedments on RLE this month. Family / Caregiver Present: Yes(son) Diagnosis: Pt admitted for possible infection in R foot. R BKA completed 05/06/19 Subjective Subjective: Pt reclined in bed, agreeable to OT General Comment Comments: R hand dominant. 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 Pt had been using knee scooter for mobility. At rehab she primariliy stand pivots to w/c or BSC. Objective Vision: Within Functional Limits Hearing: Within functional limits Orientation Overall Orientation Status: Within Functional Limits Observation/Palpation Posture: Fair Observation: gaurav bandage on R residual limb Balance Sitting Balance: Modified independent Standing Balance: Minimal assistance Functional Mobility Functional - Mobility Device: Rolling Walker Activity: Other Assist Level: Minimal assistance Functional Mobility Comments: Pivot slide steps to chair with min assist for balance. mild unsteadiness. ADL Feeding: Independent Grooming: Setup;Supervision UE Bathing: Minimal assistance LE Bathing: Minimal assistance UE Dressing: Minimal assistance LE Dressing: Minimal assistance Toileting: Minimal assistance Additional Comments: Pt able to don slipper sock on unaffected LE. All other levels estimated. Tone RUE RUE Tone: Normotonic Tone LUE LUE Tone: Normotonic Coordination Movements Are Fluid And Coordinated: No Coordination and Movement description: Gross motor impairments;Decreased speed;Decreased accuracy Bed mobility Supine to Sit: Modified independent Scooting: Modified independent Transfers Stand Pivot Transfers: Minimal assistance Sit to stand: Minimal assistance Stand to sit: Minimal assistance Transfer Comments: pivot slide transfer to chair completed with min assist. Cognition Overall Cognitive Status: WFL Sensation Overall Sensation Status: WFL LUE AROM (degrees) LUE AROM : WFL RUE AROM (degrees) RUE AROM : WFL LUE Strength Gross LUE Strength: WFL RUE Strength Gross RUE Strength: WFL Plan Plan Times per week: 3-5 Plan weeks: 2 weeks Current Treatment Recommendations: Balance Training, Functional Mobility Training, Endurance Training, Pain Management, Safety Education & Training, Patient/Caregiver Education & Training, Equipment Evaluation, Education, & procurement, Positioning, Self-Care / ADL, Home Management Training OutComes Score [facility] Daily Activity Inpatient How much help for putting on and taking off regular lower body clothing?: A Little How much help for Bathing?: A Little How much help for Toileting?: A Little How much help for putting on and taking off regular upper body clothing?: A Little How much help for taking care of personal grooming?: None How much help for eating meals?: None [facility] Inpatient Daily Activity Raw Score: 20 [facility] Inpatient ADL T-Scale Score : 42.03 ADL Inpatient CMS 0-100% Score: 38.32 ADL Inpatient CMS G-Code Modifier : CJ Goals Short term goals Time Frame for Short term goals: 2 weeks Short term goal 1: modif indep LE ADLs(goal reviewed 05/07) Short term goal 2: demos fair plus standing balance for 5 min during item retrieval of items from various cabinet heights(goal revised 05/07) Short term goal 3: modif indep toileting/toilet transfers(goal reviewed 05/07) Patient Goals Patient goals : to go home Therapy Time Individual Concurrent Group Co-treatment Time In 1054 Time Out 1107 Minutes 13 Goals and/or treatment plan was established in collaboration with patient/family/other representatives. Patient's Occupational Therapy Plan of Care [facility] Jasmine Cabrera/OT * Niranjan Pacheco MD - 05/07/2019 9:16 AM EDT Department of Internal Medicine General Internal Medicine Attending Progress Note SUBJECTIVE: Patient seen and examined. Had surgery done, appears to be relieved Medications Current Facility-Administered Medications: morphine sulfate (PF) injection 2 mg, 2 mg, Intravenous,Q6H PRN daptomycin (CUBICIN) 245 mg in sodium chloride 0.9 % 50 mL IVPB, 4 mg/kg ([place]), Intravenous, Q24H dextrose 5 % and 0.9 % sodium chloride infusion, , Intravenous, Continuous docusate sodium (COLACE) capsule 100 mg, 100 mg, Oral, Daily aspirin EC tablet 81 mg, 81 mg, Oral, Daily mometasone-formoterol (DULERA) 200-5 MCG/ACT inhaler 2 puff, 2 puff, Inhalation, BID citalopram (CELEXA) tablet 40 mg, 40 mg, Oral, Daily cyclobenzaprine (FLEXERIL) tablet 10 mg, 10 mg, Oral, Nightly furosemide (LASIX) tablet 40 mg, 40 mg, Oral, BID gabapentin (NEURONTIN) capsule 300 mg, 300 mg, Oral, BID cetirizine (ZYRTEC) tablet 10 mg, 10 mg, Oral, Daily LORazepam (ATIVAN) tablet 0.5 mg, 0.5 mg, Oral, Q6H PRN metolazone (ZAROXOLYN) tablet 5 mg, 5 mg, Oral, QAM montelukast (SINGULAIR) tablet 10 mg, 10 mg, Oral, Nightly pantoprazole (PROTONIX) tablet 40 mg, 40 mg, Oral, QAM AC ramipril (ALTACE) capsule 5 mg, 5 mg, Oral, Daily sodium chloride flush 0.9 % injection 10 mL, 10 mL, Intravenous, 2 times per day sodium chloride flush 0.9 % injection 10 mL, 10 mL, Intravenous, PRN magnesium hydroxide (MILK OF MAGNESIA) 400 MG/5ML suspension 30 mL, 30 mL, Oral, Daily PRN ondansetron (ZOFRAN) injection 4 mg, 4 mg, Intravenous, Q6H PRN enoxaparin (LOVENOX) injection 40 mg, 40 mg, Subcutaneous, Daily acetaminophen (TYLENOL) tablet 650 mg, 650 mg, Oral, Q4H PRN piperacillin-tazobactam (ZOSYN) 3.375 g in dextrose 50 mL IVPB extended infusion (premix), 3.375 g,Intravenous, Q8H oxyCODONE (OXY-IR) immediate release tablet 7.5 mg, 7.5 mg, Oral, Q4H PRN melatonin tablet 9 mg, 9 mg, Oral, Nightly PRN OBJECTIVE: VITALS: BP (!) 119/56 Pulse 84 Temp 99.1 F (37.3 C) (Temporal) Resp 18 Ht 5' 7 (1.702 m) Wt (!) 320 lb (145.2 kg) SpO2 92% BMI 50.12 kg/m CONSTITUTIONAL: awake, alert, cooperative, no apparent distress. EYES: Lids and lashes normal, pupils equal, round and reactive to light, extra ocular muscles intact ENT: Normocephalic, without obvious abnormality, oral pharynx with moist mucus membranes NECK: Supple, symmetrical, trachea midline, no adenopathy, thyroid symmetric, not enlarged and no tenderness, skin normal LUNGS: No increased work of breathing, good air exchange, clear to auscultation bilaterally CARDIOVASCULAR: Normal apical impulse, regular rate and rhythm, normal S1 and S2 ABDOMEN: Normal bowel sounds, soft, non-distended, non-tender, no hepatosplenomegaly. Right Lower abdomen incision is red and swollen,. [place] intact. No pus. MUSCULOSKELETAL: No leg edema or calf tenderness. Right BKA. stump wrapped NEUROLOGIC: Awake, alert, oriented to name, place and time. Cranial nerves II- XII are grossly intact. No focal deficits noted. SKIN: no bruising or bleeding. Warm and dry. PSYCHOLOGICALl: Mood and affect are normal. Pleasant and cooperative Data CBC with Differential: Lab Results Component Value Date WBC 11.7 05/07/2019 RBC 3.62 05/07/2019 HGB 10.0 05/07/2019 HCT 30.7 05/07/2019 PLT 390 05/07/2019 MCV 84.7 05/07/2019 MCH 27.7 05/07/2019 MCHC 32.7 05/07/2019 RDW 14.7 05/07/2019 METASPCT 1 04/08/2019 LYMPHOPCT 5.6 05/07/2019 MONOPCT 2.9 05/07/2019 BASOPCT 0.2 05/07/2019 MONOSABS 0.3 05/07/2019 LYMPHSABS 0.7 05/07/2019 EOSABS 0.0 05/07/2019 BASOSABS 0.0 05/07/2019 BMP: Lab Results Component Value Date NA 141 05/07/2019 K 3.8 05/07/2019 CL 105 05/07/2019 CO2 24 05/07/2019 BUN 15 05/07/2019 CREATININE 1.05 05/07/2019 CALCIUM 8.9 05/07/2019 GLUCOSE 204 05/07/2019 Albumin: No results found for: ALB Magnesium: Lab Results Component Value Date MG 1.8 05/04/2019 Phosphorus: No results found for: PHOS Urine Culture: No components found for: CURINE Blood Culture: No components found for: CBLOOD, CFUNGUSBL X-rays reviewed and agree with the radiologists interpretation ASSESSMENT AND PLAN: Patient Active Problem List Diagnosis Asthma with acute exacerbation Back pain Depression Hemorrhage of rectum and anus Hypertension Asthma Osteomyelitis of right foot (HCC) Post-op pain Postoperative pain Hardware complicating wound infection (HCC) MSSA (methicillin susceptible Staphylococcus aureus) infection Open wound of right foot Cellulitis Hematoma Cellulitis of right foot Right foot pain Right foot infection Osteomyelitis (HCC) 1: . History of fracture Right foot s/p talonavicular fusion October 2018 at OSH, Post operative wound infections November 2018 MSSA s/p course of IV antibiotics , Multiple wound debridements, hardware removal and spacer with removal of spacer on 04-01-19 with placement of skin graft , repeat debridement 04-08-19 and on 04-22-19 patient with repeat debridement and autologous bone graft - S/p BKA. 2. Swelling /redness of surgical sites: on s antibiotics, ID managing. 3: Morbid obesity : chronic. 4: Pain control: with oxycodone. bowel regimen, prn IV morphine, gave a one time dose of flexeril for spasms and ativan for anxiety 5: Hypokalemia: corrected. 6: HTN: Continue Home meds. 7: depression: Continue celexa 8: RLS: Continue mirapex. DVt and GI prophylaxis NIRANJAN PACHECO MD * Keanu Monahan MD - 05/07/2019 5:24 AM EDT [place] [address] [facility] [place], [place] [id number] Dept: [phone] Loc: [phone] Adult Orthopaedic Service Patient Name: Siobhan Haas Date of : 1960 Date: 05/07/19 Subjective: Pain controlled this morning, resting comfortably in the chair because she was uncomfortable in bedlast night. Feels that block did not work this time as well as it has in the past. Doing well with no complaints. Relieved to not have any more surgery on RLE. Medications: xeroform petrolat gauze 1X8 xeroform petrolat gauze 1X8 daptomycin (CUBICIN) IVPB 4 mg/kg ([place]) Intravenous Q24H docusate sodium 100 mg Oral Daily aspirin EC 81 mg Oral Daily mometasone-formoterol 2 puff Inhalation BID citalopram 40 mg Oral Daily cyclobenzaprine 10 mg Oral Nightly furosemide 40 mg Oral BID gabapentin 300 mg Oral BID cetirizine 10 mg Oral Daily metOLazone 5 mg Oral QAM montelukast 10 mg Oral Nightly pantoprazole 40 mg Oral QAM AC ramipril 5 mg Oral Daily sodium chloride flush 10 mL Intravenous 2 times per day enoxaparin 40 mg Subcutaneous Daily piperacillin-tazobactam 3.375 g Intravenous Q8H Physical Exam: Vitals: 05/07/19 0044 BP: 108/60 Pulse: 81 Resp: 18 Temp: 98.2 F (36.8 C) SpO2: 92% Intake and Output Summary (Last 24 hours) at Date Time Intake/Output Summary (Last 24 hours) at 05/07/2019 0524 Last data filed at 05/07/2019 0447 Gross per 24 hour Intake 3050 ml Output 1700 ml Net 1350 ml RLE: Dressings c/d/i to BKA stump and and right hip iliac crest donor site. Mild surrounding erythema around ICBG donor site Labs: CBC: Lab Results Component Value Date WBC 11.7 05/07/2019 RBC 3.62 05/07/2019 HGB 10.0 05/07/2019 HCT 30.7 05/07/2019 MCV 84.7 05/07/2019 MCH 27.7 05/07/2019 MCHC 32.7 05/07/2019 RDW 14.7 05/07/2019 PLT 390 05/07/2019 MPV 7.8 05/07/2019 Assessment: 58 y.o. female s/p right below knee amputation 05/06, I&D right iliac crest donor site Plan: No further operative intervention NWB RLE Abx per ID Dressing changes prn Remigio c/s for RRD placement 05/08 Ice/Elevate PT/OT Pain control and medical mgmt per 1 F/u Dr Bassett in 2 weeks Keanu Monahan MD Orthopaedic Surgery, PGY-V 05/07/19 5:24 AM * Niranjan Pacheco MD - 05/06/2019 12:10 PM EDT Department of Internal Medicine General Internal Medicine Attending Progress Note SUBJECTIVE: Patient seen and examined. Known to me from previous several recent admissions. Complains of spasms in the foot. Multiple family members in the room. Patient is crying and is really upset, anxious about the surgery also. Already received morphine and Po pain meds. Medications Current Facility-Administered Medications: potassium chloride (KLOR-CON M) extended release tablet 40 mEq, 40 mEq, Oral, BID morphine sulfate (PF) injection 2 mg, 2 mg, Intravenous, Q6H PRN daptomycin (CUBICIN) 245 mg in sodium chloride 0.9 % 50 mL IVPB, 4 mg/kg ([place]), Intravenous, Q24H dextrose 5 % and 0.9 % sodium chloride infusion, , Intravenous, Continuous docusate sodium (COLACE) capsule 100 mg, 100 mg, Oral, Daily aspirin EC tablet 81 mg, 81 mg, Oral, Daily mometasone-formoterol (DULERA) 200-5 MCG/ACT inhaler 2 puff, 2 puff, Inhalation, BID citalopram (CELEXA) tablet 40 mg, 40 mg, Oral, Daily cyclobenzaprine (FLEXERIL) tablet 10 mg, 10 mg, Oral, Nightly furosemide (LASIX) tablet 40 mg, 40 mg, Oral, BID gabapentin (NEURONTIN) capsule 300 mg, 300 mg, Oral, BID cetirizine (ZYRTEC) tablet 10 mg, 10 mg, Oral, Daily LORazepam (ATIVAN) tablet 0.5 mg, 0.5 mg, Oral, Q6H PRN metolazone (ZAROXOLYN) tablet 5 mg, 5 mg, Oral, QAM montelukast (SINGULAIR) tablet 10 mg, 10 mg, Oral, Nightly pantoprazole (PROTONIX) tablet 40 mg, 40 mg, Oral, QAM AC ramipril (ALTACE) capsule 5 mg, 5 mg, Oral, Daily sodium chloride flush 0.9 % injection 10 mL, 10 mL, Intravenous, 2 times per day sodium chloride flush 0.9 % injection 10 mL, 10 mL, Intravenous, PRN magnesium hydroxide (MILK OF MAGNESIA) 400 MG/5ML suspension 30 mL, 30 mL, Oral, Daily PRN ondansetron (ZOFRAN) injection 4 mg, 4 mg, Intravenous, Q6H PRN enoxaparin (LOVENOX) injection 40 mg, 40 mg, Subcutaneous, Daily acetaminophen (TYLENOL) tablet 650 mg, 650 mg, Oral, Q4H PRN piperacillin-tazobactam (ZOSYN) 3.375 g in dextrose 50 mL IVPB extended infusion (premix), 3.375 g,Intravenous, Q8H oxyCODONE (OXY-IR) immediate release tablet 7.5 mg, 7.5 mg, Oral, Q4H PRN melatonin tablet 9 mg, 9 mg, Oral, Nightly PRN OBJECTIVE: VITALS: BP 139/86 Pulse 94 Temp 97 F (36.1 C) (Temporal) Resp 16 Ht 5' 7 (1.702 m) Wt (!) 320 lb (145.2 kg) SpO2 93% BMI 50.12 kg/m CONSTITUTIONAL: awake, alert, cooperative, no apparent distress. EYES: Lids and lashes normal, pupils equal, round and reactive to light, extra ocular muscles intact ENT: Normocephalic, without obvious abnormality, oral pharynx with moist mucus membranes NECK: Supple, symmetrical, trachea midline, no adenopathy, thyroid symmetric, not enlarged and no tenderness, skin normal LUNGS: No increased work of breathing, good air exchange, clear to auscultation bilaterally CARDIOVASCULAR: Normal apical impulse, regular rate and rhythm, normal S1 and S2 ABDOMEN: Normal bowel sounds, soft, non-distended, non-tender, no hepatosplenomegaly. Right Lower abdomen incision is red and swollen,. Al intact. No pus. MUSCULOSKELETAL: No leg edema or calf tenderness. Foot hardware intact. Has edema and some cellulitis NEUROLOGIC: Awake, alert, oriented to name, place and time. Cranial nerves II- XII are grossly intact. No focal deficits noted. SKIN: no bruising or bleeding. Warm and dry. PSYCHOLOGICALl: Mood and affect are normal. Pleasant and cooperative Data CBC with Differential: Lab Results Component Value Date WBC 6.9 05/06/2019 RBC 3.71 05/06/2019 HGB 10.4 05/06/2019 HCT 30.8 05/06/2019 PLT 378 05/06/2019 MCV 82.9 05/06/2019 MCH 27.9 05/06/2019 MCHC 33.7 05/06/2019 RDW 15.1 05/06/2019 METASPCT 1 04/08/2019 LYMPHOPCT 22.4 05/06/2019 MONOPCT 12.4 05/06/2019 BASOPCT 0.7 05/06/2019 MONOSABS 0.9 05/06/2019 LYMPHSABS 1.6 05/06/2019 EOSABS 0.2 05/06/2019 BASOSABS 0.0 05/06/2019 BMP: Lab Results Component Value Date NA 137 05/06/2019 K 3.5 05/06/2019 CL 96 05/06/2019 CO2 30 05/06/2019 BUN 14 05/06/2019 CREATININE 0.95 05/06/2019 CALCIUM 9.3 05/06/2019 GLUCOSE 105 05/06/2019 Albumin: No results found for: ALB Magnesium: Lab Results Component Value Date MG 1.8 05/04/2019 Phosphorus: No results found for: PHOS Urine Culture: No components found for: CURINE Blood Culture: No components found for: CBLOOD, CFUNGUSBL X-rays reviewed and agree with the radiologists interpretation ASSESSMENT AND PLAN: Patient Active Problem List Diagnosis Asthma with acute exacerbation Back pain Depression Hemorrhage of rectum and anus Hypertension Asthma Osteomyelitis of right foot (HCC) Post-op pain Postoperative pain Hardware complicating wound infection (HCC) MSSA (methicillin susceptible Staphylococcus aureus) infection Open wound of right foot Cellulitis Hematoma Cellulitis of right foot Right foot pain Right foot infection Osteomyelitis (HCC) 1: . History of fracture Right foot s/p talonavicular fusion October 2018 at OSH 2. Post operative wound infections November 2018 MSSA s/p course of IV antibiotics 3. Multiple wound debridements, hardware removal and spacer with removal of spacer on 04-01-19 with placement of skin graft , repeat debridement 04-08-19 and on 04-22-19 patient with repeat debridement and autologous bone graft - OR today for BKA. 4. Swelling /redness of surgical sites: on s antibiotics, ID managing. 5. Morbid obesity : chronic. 6: Pain control: with oxycodone. bowel regimen, prn IV morphine, gave a one time dose of flexeril for spasms and ativan for anxiety 7: Hypokalemia: corrected. 8: HTN: Continue Home meds. 9: depression: Continue celexa RLS: Continue mirapex. DVt and GI prophylaxis NIRANJAN PACHECO MD * Tariq Sotelo, DO - 05/06/2019 11:42 AM EDT [facility] - Infectious Diseases Attending Progress Note Subjective: Following for prior right foot/ankle MSSA infection with multiple complications. Reviewed interim history and available chart/notes/labs and studies. Patient underwent excisional debridement of right foot skin and subcutaneous tissue and removal of non-bioabsorbable drug delivery drug implant device and now s/p application of external fixator and bone graft from iliac crest and fusionof right midfoot 04-22 and 04-24 from last admission. Now admitted with ongoing pain and erythema andgetting right BKA today. Patient off floor currently. Vitals: BP 139/86 Pulse 94 Temp 97 F (36.1 C) (Temporal) Resp 16 Ht 5' 7 (1.702 m) Wt (!) 320 lb(145.2 kg) SpO2 93% BMI 50.12 kg/m Intake/Output Summary (Last 24 hours) at 05/06/2019 1142 Last data filed at 05/06/2019 0342 Gross per 24 hour Intake 2525 ml Output Net 2525 ml Physical Exam Patient currently off floor Labs: Component Value Date/Time NA 137 05/06/2019 0243 K 3.5 05/06/2019 0243 CL 96 (L) 05/06/2019 0243 CO2 30 05/06/2019 0243 BUN 14 05/06/2019 0243 CREATININE 0.95 05/06/2019 0243 GLUCOSE 105 (H) 05/06/2019 0243 CALCIUM 9.3 05/06/2019 0243 PROT 7.1 02/14/2019 0320 LABALBU 3.8 02/14/2019 0320 BILITOT 0.5 02/14/2019 0320 ALKPHOS 114 02/14/2019 0320 AST 50 (H) 02/14/2019 0320 ALT 22 02/14/2019 0320 PROCAL <0.10 05/04/2019 1102 PROCAL <0.10 04/09/2019 0236 Component Value Date/Time WBC 6.9 05/06/2019 0243 HGB 10.4 (L) 05/06/2019 0243 HCT 30.8 (L) 05/06/2019 0243 PLT 378 05/06/2019 0243 GRANULOCYTES 61.2 05/06/2019 0243 LYMPHOPCT 22.4 05/06/2019 0243 MONOPCT 12.4 (H) 05/06/2019 0243 LABEOS 3.3 05/06/2019 0243 BASOPCT 0.7 05/06/2019 0243 NEUTROABS 4.2 05/06/2019 0243 Micro: Blood cultures: No results found for: BC Reviewed all relevant labs and microbiology data. Lines: PIV Radiography/Echo/Other: Right foot x-ray Imaging studies personally reviewed Antimicrobials, Start/End Dates: Daptomycin Piperacillin-tazobactam Impression: 1. Prior right foot/ankle MSSA osteomyelitis 2. Multiple wound debridements, hardware removal and spacer with removal of spacer on 04-01-19 with placement of skin graft , repeat debridement 04-08-19 and on 04-22-19 patient with repeat debridement and autologous bone graft 3. Probable infected right lower quadrant incision 4. Morbid obesity Plan: 1. Maintain on current regimen through surgery and a few days post-op 2. Wound care 3. Will follow abdominal incision celluitis Pager: [phone] . * Keanu Raygoza - 05/06/2019 7:58 AM EDT Physical Therapy Facility/Department: [facility] MED SURG Daily Treatment Note NAME: Siobhan Haas : 1960 Date of Service: 05/06/2019 Attempted to see pt today for PT. Pt is scheduled for BKA surgery today and treatment is not appropriate. Will be scheduled for re-eval post op. Keanu Raygoza, SPTA Beatriz Weaver PTA * Luz Marina Farris RN - 05/06/2019 6:54 AM EDT Patient complaining of 10/10 pain, unrelieved by morphine. Patient not due for PO pain medicine at this time. Paged [employer] school transportation director. No new orders at this time. * Hay Regalado MD - 05/06/2019 6:13 AM EDT [place] [address] [address] [facility] [place] [address] Dept: [phone] Loc: [phone] Adult Orthopaedic Service Patient Name: Siobhan Haas Date of : 1960 Date: 05/06/19 Subjective: Pain controlled, resting comfortably in bed. Foot redness has improved since admission. Redness over her ICBG site has not changed. Denies fevers/chills. Patient going to OR today for R BKA. She reportedly discussed with Dr. Bassett last night. Medications: potassium chloride 40 mEq Oral BID daptomycin (CUBICIN) IVPB 4 mg/kg ([place]) Intravenous Q24H docusate sodium 100 mg Oral Daily aspirin EC 81 mg Oral Daily mometasone-formoterol 2 puff Inhalation BID citalopram 40 mg Oral Daily cyclobenzaprine 10 mg Oral Nightly furosemide 40 mg Oral BID gabapentin 300 mg Oral BID cetirizine 10 mg Oral Daily metolazone 5 mg Oral QAM montelukast 10 mg Oral Nightly pantoprazole 40 mg Oral QAM AC ramipril 5 mg Oral Daily sodium chloride flush 10 mL Intravenous 2 times per day enoxaparin 40 mg Subcutaneous Daily piperacillin-tazobactam 3.375 g Intravenous Q8H Physical Exam: Vitals: 05/06/19 0547 BP: 139/86 Pulse: 94 Resp: 16 Temp: 97 F (36.1 C) SpO2: 93% Intake and Output Summary (Last 24 hours) at Date Time Intake/Output Summary (Last 24 hours) at 05/06/2019 0614 Last data filed at 05/06/2019 0342 Gross per 24 hour Intake 2525 ml Output Net 2525 ml RLE: SILT S/S/SPN/DPN/T + wiggles toes Palpable DP pulse Dressing C/D/I Erythema and swelling improved since admission ICGB site: Erythema over incision unchanged Intermittent serosanguinous drainage coming from the lateral 1/3 of the incision Induration along the incision unchanged SILT along the incision Labs: CBC: Lab Results Component Value Date WBC 6.9 05/06/2019 RBC 3.71 05/06/2019 HGB 10.4 05/06/2019 HCT 30.8 05/06/2019 MCV 82.9 05/06/2019 MCH 27.9 05/06/2019 MCHC 33.7 05/06/2019 RDW 15.1 05/06/2019 PLT 378 05/06/2019 MPV 7.7 05/06/2019 Rads: Radiological Procedure reviewed. Assessment: 58 y.o. female s/p right foot ex-fix and anterior ICBG on 04/24, now with cellulitis over surgical sites Plan: Patient to OR today for R BKA, possible I&D of ICBG Consented for above Added to OR schedule NPO NWB RLE Elevate Abx per ID Pain and medical management per primary Hay Regalado MD PGY-2 Orthopaedic Surgery 05/06/19 6:18 AM * Anette Watts MS, RD, LD - 05/05/2019 3:56 PM EDT Nutrition Assessment Type and Reason for Visit: Initial, Positive Nutrition Screen(wound) Nutrition Recommendations: 1. Continue with General diet as tolerated. 2. Per MNT provide Wound Healing supplement (Bandar) with breakfast and lunch. [id number] gms amino acids/ 2.5 gms protein each packet. 3. Encourage adequate po/protein intake 4. RD continue to monitor overall nutritional status and follow up weekly Nutrition Assessment: Patient admitted with osteomyelitis. presents with cc increased erythema & swelling of right foot. She has a long history of chronic osteomyelitis to her right navicular bone. She underwent multiple surgeries in the past month including excision of the navicular, bone grafting, placement of exterior -fixation device, and skin graft. Patient currently unavailable during RD visit, with nursing and curtain drawn. Patient received Wound Healing supplement (Bandar) previous admission - will provide BID. Malnutrition Assessment: Malnutrition Status: Insufficient data Nutrition Risk Level: High Nutrient Needs: Estimated Daily Total Kcal: 6661-9993 (25-30) Estimated Daily Protein (g): 74-86 gms per day (1.2-1.4) Estimated Daily Total Fluid (ml/day): per MD Nutrition Diagnosis: Problem: Increased nutrient needs Etiology: related to Acute injury/trauma ? Signs and symptoms: as evidenced by Presence of wounds Objective Information: Nutrition-Focused Physical Findings: +bowel sounds; generalized non-pitting edema; +2 BLE edema; +I&O; Rudi 23 Wound Type: Surgical Wound Current Nutrition Therapies: Oral Diet Orders: NPO, General Oral Nutrition Supplement (ONS) Orders: None Anthropometric Measures: Ht: 5' 7 (170.2 cm) Current Body Wt: no current weight Admission Body Wt: 320 lb (145.2 kg)(stated) % Weight Change: , per [facility] review: (02/03/19) 325# standing scale [place] Body Wt: 135 lb (61.2 kg), BMI Classification: BMI > or equal to 40.0 Obese Class III Nutrition Interventions: Continue current diet, Start ONS Continued Inpatient Monitoring Nutrition Evaluation: Evaluation: Goals set Goals: Patient consume >50% meals and ONS Monitoring: Meal Intake, Supplement Intake, Diet Tolerance, Skin Integrity, Wound Healing, I&O,Weight, Pertinent Labs, Nausea or Vomiting, Diarrhea, Constipation, Monitor Bowel Function Contact Number: pager [phone] * Tariq Sotelo DO - 05/05/2019 3:32 PM EDT [facility] - Infectious Diseases Attending Progress Note Subjective: Following for prior right foot/ankle MSSA infection with multiple complications. Reviewed interim history and available chart/notes/labs and studies. Patient underwent excisional debridement of right foot skin and subcutaneous tissue and removal of non-bioabsorbable drug delivery drug implant device and now s/p application of external fixator and bone graft from iliac crest and fusionof right midfoot 04-22 and 04-24 from last admission. Now admitted with ongoing pain and erythema andnow agreeable to getting BKA done. She also complaining of right crest bone donor site/incision to be infected. Vitals: BP 130/73 Pulse 89 Temp 98.8 F (37.1 C) (Temporal) Resp 16 Ht 5' 7 (1.702 m) Wt (!) 320 lb (145.2 kg) SpO2 93% BMI 50.12 kg/m Intake/Output Summary (Last 24 hours) at 05/05/2019 1533 Last data filed at 05/05/2019 1528 Gross per 24 hour Intake 4941 ml Output 700 ml Net 4241 ml Physical Exam Constitutional: She is oriented to person, place, and time. She appears well- developed and well-nourished. No distress (due to pain). HENT: Head: Normocephalic and atraumatic. Mouth/Throat: Oropharynx is clear and moist. No oropharyngeal exudate. Eyes: Pupils are equal, round, and reactive to light. Conjunctivae and EOM are normal. No scleral icterus. Neck: Normal range of motion. Neck supple. No thyromegaly present. Pulmonary/Chest: Effort normal. No respiratory distress. Abdominal: She exhibits no distension. Musculoskeletal: Normal range of motion. She exhibits deformity (R foot wrapped). She exhibits no edema. External fixator present Neurological: She is alert and oriented to person, place, and time. No cranial nerve deficit. She exhibits normal muscle tone. Skin: Skin is warm. No rash noted. No erythema. Psychiatric: She has a normal mood and affect. Her speech is normal. Thought content normal. Her mood appears not anxious. She does not exhibit a depressed mood. Right lower abdomen incision erythematous and scant amount of drianage Labs: Component Value Date/Time NA 137 05/05/2019 010 K 3.3 (L) 05/05/2019 010 CL 98 05/05/2019 010 CO2 32 (H) 05/05/2019 010 BUN 11 05/05/201999 CREATININE 0.67 05/05/2019 010 GLUCOSE 115 (H) 05/05/2019 0100 CALCIUM 8.9 05/05/2019 0100 PROT 7.1 02/14/2019 0320 LABALBU 3.8 02/14/2019 0320 BILITOT 0.5 02/14/2019 0320 ALKPHOS 114 02/14/2019 0320 AST 50 (H) 02/14/2019 0320 ALT 22 02/14/2019 0320 PROCAL <0.10 05/04/2019 1102 PROCAL <0.10 04/09/2019 0236 Component Value Date/Time WBC 5.7 05/05/2019 0100 HGB 10.2 (L) 05/05/2019 010 HCT 30.7 (L) 05/05/2019 0100 PLT 329 05/05/2019 010 GRANULOCYTES 53.9 05/05/2019 010 LYMPHOPCT 25.1 05/05/2019 010 MONOPCT 15.7 (H) 05/05/2019 010 LABEOS 4.3 05/05/2019 010 BASOPCT 1.0 05/05/2019 010 NEUTROABS 3.1 05/05/2019 0100 Micro: Blood cultures: No results found for: BC Reviewed all relevant labs and microbiology data. Lines: PIV Radiography/Echo/Other: Right foot x-ray Imaging studies personally reviewed Antimicrobials, Start/End Dates: Vancomycin Piperacillin-tazobactam Impression: 1. Prior right foot/ankle MSSA osteomyelitis 2. Multiple wound debridements, hardware removal and spacer with removal of spacer on 04-01-19 with placement of skin graft , repeat debridement 04-08-19 and on 04-22-19 patient with repeat debridement and autologous bone graft 3. Probable infected right lower quadrant incision 4. Morbid obesity Plan: 1. Maintain on piperacillin-tazobactam for now 2. Change vancomycin to daptomycin for better PK/PD 3. Anticipate a short alexus-op IV course 4. Surgery (BKA) likely tomorrow Spent >51% of time discussing, counseling, reviewing studies/imaging and microbiological data and coordinating care for patient. Time spent 35 minutes. Pager: [phone] . * Vane Powell - 05/05/2019 2:36 PM EDT Occupational Therapy Occupational Therapy Initial Assessment Date: 05/05/2019 Patient Name: Siobhan Haas : 1960 Date of Service: 05/05/2019 Discharge Recommendations: (facility based therapy) Assessment Performance deficits / Impairments: Decreased functional mobility ;Decreased ADL status;Decreased endurance;Decreased balance;Decreased coordination;Decreased high-level IADLs Assessment: OT eval completed. Pt presents with above deficits, limiting func. indep. Pt is a fallsand safety risk and is not safe to return home at this time. Recommend facility-based therapy upon discharge. Pt is able to tolerate three hours of therapy a day. Prognosis: Fair Decision Making: Low Complexity Exam: [facility] OT Education: OT Role;Plan of Care REQUIRES OT FOLLOW UP: Yes Activity Tolerance Activity Tolerance: Patient Tolerated treatment well Safety Devices Safety Devices in place: Yes Type of devices: Call light within reach;Left in chair;Nurse notified Patient Diagnosis(es): The encounter diagnosis was Cellulitis of right lower extremity. has a past medical history of Asthma, Cellulitis, Constipation, Depression, Fibromyalgia, GERD (gastroesophageal reflux disease), Hypertension, Morbidly obese (HCC), FAY treated with BiPAP, Osteoarthritis, Osteomyelitis of right foot (HCC), Seasonal allergies, Shortness of breath, and URSULA (stress urinary incontinence, female). has a past surgical history that includes Hysterectomy (1996); Breast surgery (2006); lipoma resection (Right, 2014); Incontinence surgery (11/15/2015); other surgical history (09/21/2016); Tonsillectomy; Colonoscopy; Endoscopy, colon, diagnostic; Foot surgery (Right, 2018); Abdominoplasty; Total knee arthroplasty (Left, 2012); other surgical history; Foot surgery (Right, 02/11/2019); other surgical history (Right, 03/07/2019); orthopedic surgery (Right, 04/01/2019); other surgical history (Right, 04/02/2019); Foot surgery (Right, 04/08/2019); other surgical history (Right, 04/22/2019); and Foot surgery (Right, 04/24/2019). Restrictions Restrictions/Precautions Restrictions/Precautions: Weight Bearing Required Braces or Orthoses?: No Lower Extremity Weight Bearing Restrictions Right Lower Extremity Weight Bearing: Non Weight Bearing(RLE) Subjective General Chart Reviewed: Yes Patient assessed for rehabilitation services?: Yes Additional Pertinent Hx: bone graft with external fixator 04/24; multiple I&D debriedments on RLE this month. Family / Caregiver Present: Yes Diagnosis: Pt admitted for possible infection in R foot Subjective Subjective: Pt reclined in bed, agreeable to OT eval General Comment Comments: R hand dominant Patient Currently in Pain: Yes Pain Assessment Pain Assessment: 0-10(no value given) Pain Level: 8 Pain Location: Abdomen;Foot Pain Orientation: Right Pain Descriptors: Aching;Discomfort Pain Frequency: Continuous Vital Signs Patient Currently in Pain: Yes Social/Functional History Social/Functional History Lives With: Alone Type of Home: Apartment Home Layout: One level Home Access: Ramped entrance Bathroom Shower/Tub: Tub/Shower unit Bathroom Toilet: Standard Bathroom Equipment: Grab bars in shower Bathroom Accessibility: Accessible Receives Help From: Family ADL Assistance: Independent Homemaking Assistance: Independent Homemaking Responsibilities: Yes Ambulation Assistance: Independent Transfer Assistance: Independent 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 Pt had been using knee scooter for mobility. At rehab she primariliy stand pivots to w/c or BSC. Objective Vision: Within Functional Limits Hearing: Within functional limits Orientation Overall Orientation Status: Within Functional Limits Balance Sitting Balance: Modified independent Standing Balance: Stand by assistance Functional Mobility Functional - Mobility Device: Rolling Walker Activity: Other Assist Level: Stand by assistance Functional Mobility Comments: Pivot slide steps to chair with SBA. No overt LOB noted. ADL Feeding: Independent Grooming: Setup;Supervision UE Bathing: Minimal assistance LE Bathing: Minimal assistance UE Dressing: Minimal assistance LE Dressing: Minimal assistance Toileting: Minimal assistance Additional Comments: Pt able to don slipper sock on unaffected LE. All other levels estimated. Tone RUE RUE Tone: Normotonic Tone LUE LUE Tone: Normotonic Coordination Movements Are Fluid And Coordinated: No Coordination and Movement description: Gross motor impairments;Decreased speed;Decreased accuracy Bed mobility Supine to Sit: Modified independent Sit to Supine: Supervision Scooting: Modified independent Comment: hand rails used. HOB raised. Transfers Stand Pivot Transfers: Stand by assistance Sit to stand: Stand by assistance Stand to sit: Stand by assistance Transfer Comments: pivot slide transfer to chair completed with SBA. Cognition Overall Cognitive Status: WFL Sensation Overall Sensation Status: WFL LUE AROM (degrees) LUE AROM : WFL RUE AROM (degrees) RUE AROM : WFL LUE Strength Gross LUE Strength: WFL RUE Strength Gross RUE Strength: WFL Plan Plan Times per week: 3-5 Plan weeks: 2 weeks Current Treatment Recommendations: Balance Training, Functional Mobility Training, Endurance Training, Pain Management, Safety Education & Training, Patient/Caregiver Education & Training, Equipment Evaluation, Education, & procurement, Positioning, Self-Care / ADL, Home Management Training OutComes Score [facility] Daily Activity Inpatient How much help for putting on and taking off regular lower body clothing?: A Little How much help for Bathing?: A Little How much help for Toileting?: A Little How much help for putting on and taking off regular upper body clothing?: A Little How much help for taking care of personal grooming?: None How much help for eating meals?: None [facility] Inpatient Daily Activity Raw Score: 20 [facility] Inpatient ADL T-Scale Score : 42.03 ADL Inpatient CMS 0-100% Score: 38.32 ADL Inpatient [facility] G-Code Modifier : CJ Goals Short term goals Time Frame for Short term goals: 2 weeks Short term goal 1: modif indep LE ADLs Short term goal 2: demos fair plus standing balance during item retrieval of items from various cabinet heights Short term goal 3: modif indep toileting/toilet transfers Patient Goals Patient goals : to go home Therapy Time Individual Concurrent Group Co-treatment Time In 1333 Time Out 1345 Minutes 12 Goals and/or treatment plan was established in collaboration with patient/family/other representatives. Patient's Occupational Therapy Plan [facility] Jasmine Cabrera/OT * Jace Story MD - 05/05/2019 1:36 PM EDT Ortho plan update. Patient with infection to previous ICBG site. Plan for OR 05/06 for I&D. Patient with long history of surgery to her right foot. She expresses she is tired of dealing with the foot and would like a definitive solution. She states she has thought about this for a while now. She is requesting a below knee amputation. We will tentatively add on for BKA as well, pending further di scussion with Dr. Bassett. Cases have been added. Consented for both procedures. NPO at [place]. T+S ordered. Jace Story MD PGY-3 Orthopaedic Surgery 1:41 PM 05/05/2019 * Niranjan Pacheco MD - 05/05/2019 9:12 AM EDT Department of Internal Medicine General Internal Medicine Attending Progress Note SUBJECTIVE: Patient seen and examined. Known to me from previous several recent admissions. Complains of pain at the graft site. Medications Current Facility-Administered Medications: potassium chloride (KLOR-CON M) extended release tablet 40 mEq, 40 mEq, Oral, BID docusate sodium (COLACE) capsule 100 mg, 100 mg, Oral, Daily aspirin EC tablet 81 mg, 81 mg, Oral, Daily mometasone-formoterol (DULERA) 200-5 MCG/ACT inhaler 2 puff, 2 puff, Inhalation, BID citalopram (CELEXA) tablet 40 mg, 40 mg, Oral, Daily cyclobenzaprine (FLEXERIL) tablet 10 mg, 10 mg, Oral, Nightly furosemide (LASIX) tablet 40 mg, 40 mg, Oral, BID gabapentin (NEURONTIN) capsule 300 mg, 300 mg, Oral, BID cetirizine (ZYRTEC) tablet 10 mg, 10 mg, Oral, Daily LORazepam (ATIVAN) tablet 0.5 mg, 0.5 mg, Oral, Q6H PRN metolazone (ZAROXOLYN) tablet 5 mg, 5 mg, Oral, QAM montelukast (SINGULAIR) tablet 10 mg, 10 mg, Oral, Nightly pantoprazole (PROTONIX) tablet 40 mg, 40 mg, Oral, QAM AC ramipril (ALTACE) capsule 5 mg, 5 mg, Oral, Daily sodium chloride flush 0.9 % injection 10 mL, 10 mL, Intravenous, 2 times per day sodium chloride flush 0.9 % injection 10 mL, 10 mL, Intravenous, PRN magnesium hydroxide (MILK OF MAGNESIA) 400 MG/5ML suspension 30 mL, 30 mL, Oral, Daily PRN ondansetron (ZOFRAN) injection 4 mg, 4 mg, Intravenous, Q6H PRN enoxaparin (LOVENOX) injection 40 mg, 40 mg, Subcutaneous, Daily vancomycin (VANCOCIN) 2,000 mg in dextrose 5 % 500 mL IVPB, 15 mg/kg, Intravenous, Q12H acetaminophen (TYLENOL) tablet 650 mg, 650 mg, Oral, Q4H PRN piperacillin-tazobactam (ZOSYN) 3.375 g in dextrose 50 mL IVPB extended infusion (premix), 3.375 g,Intravenous, Q8H oxyCODONE (OXY-IR) immediate release tablet 7.5 mg, 7.5 mg, Oral, Q4H PRN melatonin tablet 9 mg, 9 mg, Oral, Nightly PRN OBJECTIVE: VITALS: BP 130/73 Pulse 89 Temp 98.8 F (37.1 C) (Temporal) Resp 16 Ht 5' 7 (1.702 m) Wt (!) 320 lb (145.2 kg) SpO2 93% BMI 50.12 kg/m CONSTITUTIONAL: awake, alert, cooperative, no apparent distress. EYES: Lids and lashes normal, pupils equal, round and reactive to light, extra ocular muscles intact ENT: Normocephalic, without obvious abnormality, oral pharynx with moist mucus membranes NECK: Supple, symmetrical, trachea midline, no adenopathy, thyroid symmetric, not enlarged and no tenderness, skin normal LUNGS: No increased work of breathing, good air exchange, clear to auscultation bilaterally CARDIOVASCULAR: Normal apical impulse, regular rate and rhythm, normal S1 and S2 ABDOMEN: Normal bowel sounds, soft, non-distended, non-tender, no hepatosplenomegaly. Right Lower abdomen incision is red and swollen,. [place] intact. No pus. MUSCULOSKELETAL: No leg edema or calf tenderness. Foot hardware intact. Has edema and some cellulitis NEUROLOGIC: Awake, alert, oriented to name, place and time. Cranial nerves II- XII are grossly intact. No focal deficits noted. SKIN: no bruising or bleeding. Warm and dry. PSYCHOLOGICALl: Mood and affect are normal. Pleasant and cooperative Data CBC with Differential: Lab Results Component Value Date WBC 5.7 05/05/2019 RBC 3.65 05/05/2019 HGB 10.2 05/05/2019 HCT 30.7 05/05/2019 PLT 329 05/05/2019 MCV 84.3 05/05/2019 MCH 28.0 05/05/2019 MCHC 33.3 05/05/2019 RDW 14.6 05/05/2019 METASPCT 1 04/08/2019 LYMPHOPCT 25.1 05/05/2019 MONOPCT 15.7 05/05/2019 BASOPCT 1.0 05/05/2019 MONOSABS 0.9 05/05/2019 LYMPHSABS 1.4 05/05/2019 EOSABS 0.2 05/05/2019 BASOSABS 0.1 05/05/2019 BMP: Lab Results Component Value Date NA 137 05/05/2019 K 3.3 05/05/2019 CL 98 05/05/2019 CO2 32 05/05/2019 BUN 11 05/05/2019 CREATININE 0.67 05/05/2019 CALCIUM 8.9 05/05/2019 GLUCOSE 115 05/05/2019 Albumin: No results found for: ALB Magnesium: Lab Results Component Value Date MG 1.8 05/04/2019 Phosphorus: No results found for: PHOS Urine Culture: No components found for: CURINE Blood Culture: No components found for: CBLOOD, CFUNGUSBL X-rays reviewed and agree with the radiologists interpretation ASSESSMENT AND PLAN: Patient Active Problem List Diagnosis Asthma with acute exacerbation Back pain Depression Hemorrhage of rectum and anus Hypertension Asthma Osteomyelitis of right foot (HCC) Post-op pain Postoperative pain Hardware complicating wound infection (HCC) MSSA (methicillin susceptible Staphylococcus aureus) infection Open wound of right foot Cellulitis Hematoma Cellulitis of right foot Right foot pain Right foot infection Osteomyelitis (HCC) 1: . History of fracture Right foot s/p talonavicular fusion October 2018 at OSH 2. Post operative wound infections November 2018 MSSA s/p course of IV antibiotics 3. Multiple wound debridements, hardware removal and spacer with removal of spacer on 04-01-19 with placement of skin graft , repeat debridement 04-08-19 and on 04-22-19 patient with repeat debridement and autologous bone graft 4. Swelling /redness of surgical sites: on s antibiotics, ID managing. 5. Morbid obesity : chronic. 6: Pain control: with oxycodone. Add bowel regimen,. Will add prn IV morphine 7: Hypokalemia: replace K. 8: HTN: resume Home meds. 9: depression: resume celexa RLS: resume mirapex. DVt and GI prophylaxis NIRANJAN PACHECO MD * Simon Raygozaic - 05/05/2019 9:08 AM EDT Physical Therapy Facility/Department: [facility] MED SURG Daily Treatment Note NAME: Siobhan Haas : 1960 Date of Service: 05/05/2019 Discharge Recommendations: IP Rehab Assessment Body structures, Functions, Activity limitations: Decreased functional mobility ;Decreased ADL status;Decreased strength;Decreased balance;Increased Pain Assessment: Pt is aware and compliant with NWB restrictions but states that she can not hop as it upsets her stomach from the meds she is taking. Pt is still unable to ambulate. Met bed mobility goaland is very close to transfer goals with SBA. Recommending IP rehab at disch as pt can tolerate 3 hrs of therapy a day. Prognosis: Fair Decision Making: Low Complexity REQUIRES PT FOLLOW UP: Yes Activity Tolerance Activity Tolerance: Patient Tolerated treatment well Patient Diagnosis(es): The encounter diagnosis was Cellulitis of right lower extremity. has a past medical history of Asthma, Cellulitis, Constipation, Depression, Fibromyalgia, GERD (gastroesophageal reflux disease), Hypertension, Morbidly obese (HCC), FAY treated with BiPAP, Osteoarthritis, Osteomyelitis of right foot (HCC), Seasonal allergies, Shortness of breath, and URSULA (stress urinary incontinence, female). has a past surgical history that includes Hysterectomy (1996); Breast surgery (2006); lipoma resection (Right, 2014); Incontinence surgery (11/15/2015); other surgical history (09/21/2016); Tonsillectomy; Colonoscopy; Endoscopy, colon, diagnostic; Foot surgery (Right, 2018); Abdominoplasty; Total knee arthroplasty (Left, 2012); other surgical history; Foot surgery (Right, 02/11/2019); other surgical history (Right, 03/07/2019); orthopedic surgery (Right, 04/01/2019); other surgical history (Right, 04/02/2019); Foot surgery (Right, 04/08/2019); other surgical history (Right, 04/22/2019); and Foot surgery (Right, 04/24/2019). Restrictions Restrictions/Precautions Restrictions/Precautions: Weight Bearing Required Braces or Orthoses?: No Lower Extremity Weight Bearing Restrictions Right Lower Extremity Weight Bearing: Non Weight Bearing Subjective General Chart Reviewed: Yes Family / Caregiver Present: No Subjective Subjective: Pt supine laying with HOB raised, agreeable for PT. She states that she can only stand and pivot as she did this morning to the [facility]. Pain Screening Patient Currently in Pain: Yes(R hip hurts more than R foot) Vital Signs Patient Currently in Pain: Yes(R hip hurts more than R foot) Orientation Orientation Overall Orientation Status: Within Normal Limits Objective Bed mobility Supine to Sit: Modified independent Scooting: Modified independent Comment: Used hand rails with HOB raised Transfers Sit to Stand: Stand by assistance Stand to sit: Stand by assistance Bed to Chair: Stand by assistance Stand Pivot Transfers: Stand by assistance Ambulation Ambulation?: No AM-PAC Score AM-PAC Inpatient Mobility Raw Score : 18 (05/05/19908) AM-PAC Inpatient T-Scale Score : 43.63 (05/05/19908) Mobility Inpatient CMS 0-100% Score: 46.58 (05/05/19908) Mobility Inpatient CMS G-Code Modifier : CK (05/05/19908) Goals Short term goals Time Frame for Short term goals: 1 week Short term goal 1: Bed mobility mod indep - GOAL MET Short term goal 2: Transfers mod indep - PROGRESSING, VERY CLOSE TO MEETING Short term goal 3: Stand pivot with device mod indep - PROGRESSING, VERY CLOSE TO MEETING Patient Goals Patient goals : I just want to live my life Plan Plan Times per week: 5-7 Plan weeks: 2 Current Treatment Recommendations: Strengthening, Balance Training, Functional Mobility Training, Transfer Training, Wheelchair Mobility Training, Positioning Safety Devices Type of devices: Call light within reach, Left in bed Therapy Time Individual Concurrent Group Co-treatment Time In 0843 Time Out 0853 Minutes 10 Timed Code Treatment Minutes: 10 Minutes(FA) LEONARDO De La Torre PTA * Jace Story MD - 05/05/2019 6:06 AM EDT [facility] H5 MED SURG [address] [id number] Dept: [phone] Loc: [phone] Adult Orthopaedic Service Patient Name: Siobhan Haas Date of : 1960 Date: 05/05/19 Subjective: Pain controlled, resting comfortably in bed. Foot redness has improved since admission. Redness over her ICBG site has not changed. Denies fevers/chills. Medications: potassium chloride 40 mEq Oral BID docusate sodium 100 mg Oral Daily aspirin EC 81 mg Oral Daily mometasone-formoterol 2 puff Inhalation BID citalopram 40 mg Oral Daily cyclobenzaprine 10 mg Oral Nightly furosemide 40 mg Oral BID gabapentin 300 mg Oral BID cetirizine 10 mg Oral Daily metolazone 5 mg Oral QAM montelukast 10 mg Oral Nightly pantoprazole 40 mg Oral QAM AC ramipril 5 mg Oral Daily sodium chloride flush 10 mL Intravenous 2 times per day enoxaparin 40 mg Subcutaneous Daily vancomycin 15 mg/kg Intravenous Q12H piperacillin-tazobactam 3.375 g Intravenous Q8H Physical Exam: Vitals: 05/05/19 0558 BP: 130/73 Pulse: 89 Resp: 16 Temp: 98.8 F (37.1 C) SpO2: 93% Intake and Output Summary (Last 24 hours) at Date Time Intake/Output Summary (Last 24 hours) at 05/05/2019 0606 Last data filed at 05/05/2019 0534 Gross per 24 hour Intake 3278 ml Output 700 ml Net 2578 ml RLE: SILT S/S/SPN/DPN/T + wiggles toes Palpable DP pulse Dressing C/D/I Erythema and swelling improved since admission ICGB site: Erythema over incision unchanged Intermittent serosanguinous drainage coming from the lateral 1/3 of the incision Induration along the incision unchanged SILT along the incision Labs: CBC: Lab Results Component Value Date WBC 5.7 05/05/2019 RBC 3.65 05/05/2019 HGB 10.2 05/05/2019 HCT 30.7 05/05/2019 MCV 84.3 05/05/2019 MCH 28.0 05/05/2019 MCHC 33.3 05/05/2019 RDW 14.6 05/05/2019 PLT 329 05/05/2019 MPV 7.6 05/05/2019 Rads: Radiological Procedure reviewed. Assessment: 58 y.o. female s/p right foot ex-fix and anterior ICBG on 04/24, now with cellulitis over surgical sites Plan: Foot cellulitis much improved since admission and IV abx ICBG site cellulitis with minimal improvement. Still indurated. Will d/w Dr. Bassett and update plan accordingly Chance she will require OR for I&D of the ICBG site Consented for above Add P discussion with Dr. Bassett NPO, will change as plans finalized NWB RLE Elevate Abx per ID Pain and medical management per primary * Siobhan Lay, PT - 05/04/2019 10:23 AM EDT Physical Therapy Facility/Department: [facility] MED SURG Initial Assessment NAME: iSobhan Haas : 1960 Date of Service: 05/04/2019 Discharge Recommendations: IP Rehab Assessment Body structures, Functions, Activity limitations: Decreased functional mobility ;Decreased ADL status;Decreased strength;Decreased balance;Increased Pain Assessment: Pt s/p external fix and iliac crest bone graft right foot 04/24 that presents with post op infection. Pt is limited by pain from graft site and right foot and is unable to hop with walker or use knee scooter at this time. Pt able to stand pivot with CGA to and from bed to BSC. Pt still awaiting ortho rec from Dr. Bassett. Pt lives alone and would benefit from ongoing inpt therapy at rehab level at disch. Prognosis: Fair Decision Making: Low Complexity PT Education: Goals;PT Role;Plan of Care;Transfer Training REQUIRES PT FOLLOW UP: Yes Activity Tolerance Activity Tolerance: Patient Tolerated treatment well Patient Diagnosis(es): The encounter diagnosis was Cellulitis of right lower extremity. has a past medical history of Asthma, Cellulitis, Constipation, Depression, Fibromyalgia, GERD (gastroesophageal reflux disease), Hypertension, Morbidly obese (HCC), FAY treated with BiPAP, Osteoarthritis, Osteomyelitis of right foot (HCC), Seasonal allergies, Shortness of breath, and URSULA (stress urinary incontinence, female). has a past surgical history that includes Hysterectomy (1996); Breast surgery (2006); lipoma resection (Right, 2014); Incontinence surgery (11/15/2015); other surgical history (09/21/2016); Tonsillectomy; Colonoscopy; Endoscopy, colon, diagnostic; Foot surgery (Right, 2018); Abdominoplasty; Total knee arthroplasty (Left, 2012); other surgical history; Foot surgery (Right, 02/11/2019); other surgical history (Right, 03/07/2019); orthopedic surgery (Right, 04/01/2019); other surgical history (Right, 04/02/2019); Foot surgery (Right, 04/08/2019); other surgical history (Right, 04/22/2019); and Foot surgery (Right, 04/24/2019). Restrictions Restrictions/Precautions Restrictions/Precautions: Weight Bearing Required Braces or Orthoses?: No Lower Extremity Weight Bearing Restrictions Right Lower Extremity Weight Bearing: Non Weight Bearing Vision/Hearing Vision: Within Functional Limits Hearing: Within functional limits Subjective General Chart Reviewed: Yes Patient assessed for rehabilitation services?: Yes Additional Pertinent Hx: Pt reports having 10 right foot surgeries in the last 2 years Family / Caregiver Present: No Diagnosis: Infected post op wound. Most recent surgery 04/24 I & D with external fixator application and iliac crest bone graft (right side) Follows Commands: Within Functional Limits General Comment Comments: (+)IV Subjective Subjective: Pt resting in bed with RLE elevated on special bolster. Pt pleasant and reports she needs to use BSC but can only stand pivot. Pain Screening Patient Currently in Pain: Yes Pain Assessment Pain Assessment: 0-10 Pain Level: 4 Pain Location: Abdomen;Foot Pain Orientation: Right Vital Signs Patient Currently in Pain: Yes Oxygen Therapy O2 Device: None (Room air) Orientation Orientation Overall Orientation Status: Within Normal Limits Social/Functional History Social/Functional History Additional Comments: Pt reports having 10 surgeries in 2 years on right foot and has been unable towalk normally with weight on her right foot for 2 years. Pt went to [facility] after 04/24 surgery. Pt had been using knee scooter before ex. fix surgery and got around well. Pt states she can no longer use knee scooter due to pain it causes. At rehab she primariliy stand pivots to w/c or BSC. Ptreports she's waiting to speak to Dr. Bassett, but pt has decided she is done with surgery on right foot and has accepted she may face amputation and future use of prosthetic. Cognition Objective Observation/Palpation Observation: right abdomen dressing (PT reinforced with soft tape) and right foot external fixator AROM RLE (degrees) RLE AROM: WFL RLE General AROM: at knee and hip AROM LLE (degrees) LLE AROM : WFL Strength RLE Comment: knee and hip 3+/5 Strength LLE Comment: 4-/5 Sensation Overall Sensation Status: WFL Bed mobility Supine to Sit: Supervision Sit to Supine: Supervision Scooting: Supervision Comment: used rails Transfers Sit to Stand: Contact guard assistance Stand to sit: Contact guard assistance Stand Pivot Transfers: Contact guard assistance Comment: bed to BSC to bed Ambulation Ambulation?: No Balance Sitting - Static: Good Sitting - Dynamic: Good Standing - Static: Fair Standing - Dynamic: Fair;- Plan Plan Times per week: 5-7 Plan weeks: 2 Current Treatment Recommendations: Strengthening, Balance Training, Functional Mobility Training, Transfer Training, Wheelchair Mobility Training, Positioning Safety Devices Type of devices: Call light within reach, Left in bed AM-PAC Score AM-PAC Inpatient Mobility Raw Score : 17 (05/04/19 1005) AM-PAC Inpatient T-Scale Score : 42.13 (05/04/19 1005) Mobility Inpatient CMS 0-100% Score: 50.57 (05/04/19 1005) Mobility Inpatient [facility] G-Code Modifier : CK (05/04/19 100) Goals Short term goals Time Frame for Short term goals: 1 week Short term goal 1: Bed mobility mod indep Short term goal 2: Transfers mod indep Short term goal 3: Stand pivot with device mod indep Patient Goals Patient goals : I just want to live my life Therapy Time Individual Concurrent Group Co-treatment Time In 0938 Time Out 0951 Minutes 13 Patient s Physical Therapy Plan of Care supervision is transferred to [facility] Rehab Department Physical Therapist. Siobhan Lay PT * Niranjan Pacheco MD - 05/04/2019 9:37 AM EDT Department of Internal Medicine General Internal Medicine Attending Progress Note SUBJECTIVE: Patient seen and examined. Known to me from previous several recent admissions. Complains of pain at the graft site. Medications Current Facility-Administered Medications: sodium chloride flush 0.9 % injection 10 mL, 10 mL, Intravenous, 2 times per day sodium chloride flush 0.9 % injection 10 mL, 10 mL, Intravenous, PRN magnesium hydroxide (MILK OF MAGNESIA) 400 MG/5ML suspension 30 mL, 30 mL, Oral, Daily PRN ondansetron (ZOFRAN) injection 4 mg, 4 mg, Intravenous, Q6H PRN enoxaparin (LOVENOX) injection 40 mg, 40 mg, Subcutaneous, Daily vancomycin (VANCOCIN) 2,000 mg in dextrose 5 % 500 mL IVPB, 15 mg/kg, Intravenous, Q12H acetaminophen (TYLENOL) tablet 650 mg, 650 mg, Oral, Q4H PRN piperacillin-tazobactam (ZOSYN) 3.375 g in dextrose 50 mL IVPB extended infusion (premix), 3.375 g,Intravenous, Q8H oxyCODONE (OXY-IR) immediate release tablet 7.5 mg, 7.5 mg, Oral, Q4H PRN melatonin tablet 9 mg, 9 mg, Oral, Nightly PRN 0.9% NaCl with KCl 20 mEq infusion, , Intravenous, Continuous OBJECTIVE: VITALS: BP 111/64 Pulse 78 Temp 99.3 F (37.4 C) (Temporal) Resp 18 Ht 5' 7 (1.702 m) Wt (!) 320 lb (145.2 kg) SpO2 92% BMI 50.12 kg/m CONSTITUTIONAL: awake, alert, cooperative, no apparent distress. EYES: Lids and lashes normal, pupils equal, round and reactive to light, extra ocular muscles intact ENT: Normocephalic, without obvious abnormality, oral pharynx with moist mucus membranes NECK: Supple, symmetrical, trachea midline, no adenopathy, thyroid symmetric, not enlarged and no tenderness, skin normal LUNGS: No increased work of breathing, good air exchange, clear to auscultation bilaterally CARDIOVASCULAR: Normal apical impulse, regular rate and rhythm, normal S1 and S2 ABDOMEN: Normal bowel sounds, soft, non-distended, non-tender, no hepatosplenomegaly. Right Lower abdomen incision is red and swollen,. Al intact. No pus. MUSCULOSKELETAL: No leg edema or calf tenderness. Foot hardware intact. Has edema and some cellulitis NEUROLOGIC: Awake, alert, oriented to name, place and time. Cranial nerves II- XII are grossly intact. No focal deficits noted. SKIN: no bruising or bleeding. Warm and dry. PSYCHOLOGICALl: Mood and affect are normal. Pleasant and cooperative Data CBC with Differential: Lab Results Component Value Date WBC 6.5 05/04/2019 RBC 3.80 05/04/2019 HGB 10.7 05/04/2019 HCT 31.6 05/04/2019 PLT 308 05/04/2019 MCV 83.2 05/04/2019 MCH 28.2 05/04/2019 MCHC 33.9 05/04/2019 RDW 14.5 05/04/2019 METASPCT 1 04/08/2019 LYMPHOPCT 13.8 04/24/2019 MONOPCT 8 04/29/2019 BASOPCT 0 04/29/2019 MONOSABS 0.8 04/29/2019 LYMPHSABS 2.3 04/29/2019 EOSABS 1.0 04/29/2019 BASOSABS 0.0 04/29/2019 BMP: Lab Results Component Value Date NA 135 05/04/2019 K 2.7 05/04/2019 CL 93 05/04/2019 CO2 34 05/04/2019 BUN 9 05/04/2019 CREATININE 0.61 05/04/2019 CALCIUM 9.0 05/04/2019 GLUCOSE 105 05/04/2019 Albumin: No results found for: ALB Magnesium: Lab Results Component Value Date MG 1.8 05/04/2019 Phosphorus: No results found for: PHOS Urine Culture: No components found for: CURINE Blood Culture: No components found for: CBLOOD, CFUNGUSBL X-rays reviewed and agree with the radiologists interpretation ASSESSMENT AND PLAN: Patient Active Problem List Diagnosis Asthma with acute exacerbation Back pain Depression Hemorrhage of rectum and anus Hypertension Asthma Osteomyelitis of right foot (HCC) Post-op pain Postoperative pain Hardware complicating wound infection (HCC) MSSA (methicillin susceptible Staphylococcus aureus) infection Open wound of right foot Cellulitis Hematoma Cellulitis of right foot Right foot pain Right foot infection Osteomyelitis (HCC) 1: . History of fracture Right foot s/p talonavicular fusion October 2018 at [facility] 2. Post operative wound infections November 2018 MSSA s/p course of IV antibiotics 3. Multiple wound debridements, hardware removal and spacer with removal of spacer on 04-01-19 with placement of skin graft , repeat debridement 04-08-19 and on 04-22-19 patient with repeat debridement and autologous bone graft 4. Swelling /redness of surgical sites: on s antibiotics, ID managing. 5. Morbid obesity : chronic. 6: Pain control: with oxycodone. Add bowel regimen,. 7: Hypokalemia: replace K. She wants to be off the fluids. 8: HTN: resume Home meds. 9: depression: resume celexa RLS: resume mirapex. DVt and GI prophylaxis NIRANJAN PACHECO MD * Priyanka Diane RN - 05/03/2019 9:30 PM EDT PT arrived to the unit via cart. Pt A&Ox4, cooperative with assessment. Pt has external pins inR foot with a wound on the wound. Pt also has a R abd would from where she states bone was taken and put in her foot. R abd would draining serosang fluid and DSD applied. Pt oriented to room and calllight within reach. documented in this encounter* Wanda Snyder RN - 08/07/2020 4:49 PM EST Discharge instructions given with verbalized good understanding. Patient present for discharge teaching. Patient requesting pain medication. Dr. Morrissey notified. Patient refusing to wait for prescription to be called in and stated that she will call the office Sunday. IV removed. Patient denies any further questions or concerns at this time. Patient escorted to discharge via wheelchair by NA with all personal belongings. * Wanda Snyder RN - 08/07/2020 1:50 PM EST Pt asking about discharge. Dr. Aceves paged. No new orders placed. documented in this encounter* Jayda Hernández - 08/18/2020 2:18 PM EST Physical Therapy Facility/Department: [facility] Initial Assessment NAME: Siobhan Haas : 1960 Date of Service: 08/18/2020 Discharge Recommendations: Home with assist PRN PT Equipment Recommendations Equipment Needed: Yes Mobility Devices: Wheelchair Wheelchair: Standard Other: 22 tawny height Assessment Assessment: Pt s/p I&D R BKA. Pt demonstrates overall good functional mobility. Pt NWB RLE. Pt independent with stand pivot transfer from bed to wheelchair. Pt currently using borrowed wheelchairat home, but will require own wheelchair upon disch. Pt safe for disch to home from a mobility perspective. Prognosis: Good Decision Making: Low Complexity No Skilled PT: Safe to return home REQUIRES PT FOLLOW UP: No Activity Tolerance Activity Tolerance: Patient Tolerated treatment well Patient Diagnosis(es): The encounter diagnosis was BKA stump complication (HCC). 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 has a past surgical history that includes Hysterectomy (1996); Breast surgery (2006); lipoma resection (Right, 2014); Incontinence surgery (11/15/2015); other surgical history (09/21/2016); Tonsillectomy; Colonoscopy; Endoscopy, colon, diagnostic; Foot surgery (Right, 2018); Abdominoplasty; Total knee arthroplasty (Left, 2012); other surgical history; Foot surgery (Right, 02/11/2019); other surgical history (Right, 03/07/2019); orthopedic surgery (Right, 04/01/2019); other surgical history (Right, 04/02/2019); Foot surgery (Right, 04/08/2019); other surgical history (Right, 04/22/2019); Foot surgery (Right, 04/24/2019); other surgical history (Right, 05/06/2019); joint replacement; other surgical history (07/27/2020); and Abscess Drainage (Right, 08/07/2020). Restrictions Restrictions/Precautions Restrictions/Precautions: Weight Bearing, General Precautions, Fall Risk Required Braces or Orthoses?: No Lower Extremity Weight Bearing Restrictions Right Lower Extremity Weight Bearing: Non Weight Bearing Vision/Hearing WFL Subjective General Chart Reviewed: Yes Patient assessed for rehabilitation services?: Yes Family / Caregiver Present: No Diagnosis: I&D R BKA wound Follows Commands: Within Functional Limits General Comment Comments: wound vac Subjective Subjective: Pt sitting up in bed, agreeable to therapy. Pt eager to go home. Pt reports independenttransfers at home, stating she is able to get around her apartment and do everything she needs to do to take care of herself. Pt denies pain and numbness/tingling at this time. Pain Screening Patient Currently in Pain: No Vital Signs Patient Currently in Pain: No Orientation Orientation Overall Orientation Status: Within Functional Limits Social/Functional History Social/Functional History Lives With: Alone Type of Home: Apartment Home Layout: One level Home Access: Ramped entrance Bathroom Equipment: Grab bars in shower, Shower chair Bathroom Accessibility: Accessible Home Equipment: Rolling walker, Wheelchair-manual(wheelchair is borrowed from a friend, needs own wheelchair) Receives Help From: Family ADL Assistance: Independent Homemaking Assistance: Independent Homemaking Responsibilities: Yes Ambulation Assistance: Independent Transfer Assistance: Independent Additional Comments: Son lives upstairs, pt has large support system who frequently check in on herand assist as needed. Cognition WFL Objective AROM RLE (degrees) RLE AROM: WFL RLE General AROM: Hip flexion in sitting to approx 110 degrees, knee extension full AROM LLE (degrees) LLE AROM : WFL LLE General AROM: Ankle DF/PF grossly WFL, hip flexion to aprox 110 degrees in sitting, knee extension full AROM RUE (degrees) RUE AROM : WFL RUE General AROM: grossly assessed AROM LUE (degrees) LUE AROM : WFL LUE General AROM: grossly assessed Strength RLE Strength RLE: WFL Comment: hip flexion 4+/5 Strength LLE Strength LLE: WFL Comment: Ankle 4+/5, PF 4+/5, hip flexion 4+/5, knee extension 4+/5 Strength RUE Strength RUE: WFL Comment: grossly 4+/5 Strength LUE Strength LUE: WFL Comment: grossly 4+/5 Tone RLE RLE Tone: (no abnormal tone detected) Tone LLE LLE Tone: (no abnormal tone detected) Sensation Overall Sensation Status: WFL(light touch intact on R residual limb and toes on LLE) Bed mobility Rolling to Right: Modified independent Supine to Sit: Modified independent Sit to Supine: Modified independent Comment: use of bedrails and HOB elevated Transfers Sit to Stand: Modified independent Stand to sit: Modified independent Squat Pivot Transfers: Independent Comment: Use of BUE pushoff for sit to stand. Pt able to perform stand pivot transfer from bed to commode and from bed to wheelchair. Ambulation Ambulation?: No Stairs/Curb Stairs?: No Wheelchair Activities Wheelchair Type: Standard Wheelchair Cushion: None Level of Assistance for pressure relief activities: Independent Propulsion: Yes Gait Deviations Gait Deviations: None Balance Posture: Good Sitting - Static: Good Sitting - Dynamic: Good Standing - Static: Good Standing - Dynamic: Good(with use of UE support) Plan Plan Times per week: disch PT Safety Devices Type of devices: Call light within reach, Left in bed Restraints Initially in place: No AM-PAC Score [facility] Inpatient Mobility Raw Score : 24 (08/18/201416) [facility] Inpatient T-Scale Score : 61.14 (08/18/201416) Mobility Inpatient [facility] 0-100% Score: 0 (08/18/201416) Mobility Inpatient [facility] G-Code Modifier : CH (08/18/201416) Therapy Time Individual Concurrent Group Co-treatment Time In 1342 Time Out 1400 Minutes 18 SPT wore N95 mask, goggles, and gloves throughout entire session with patient. Jayda Hernández Associated attestation - Ludwin Zarate, PT - 08/18/2020 3:09 PM EST I was present during session. I spoke with [facility] re: w/c dimensions. * Shabbir Trent MD - 08/18/2020 6:20 AM EST [facility]LE[facility] [address] [place] [address] Dept: [phone] Loc: [phone] Orthopedic Progress Note Name: Siobhan Haas Date:08/18/2020 Attending:Rusty Bassett MD Subjective Resting comfortably. No concerns. Wants to go home today Objective Vitals: Vitals: 08/17/20 1645 08/17/20 1654 08/17/20 2017 08/18/20 0352 BP: 124/77 116/67 Pulse: 79 80 Resp: 17 18 Temp: 97.3 F (36.3 C) 97 F (36.1 C) TempSrc: Temporal Temporal Temporal SpO2: 94% 94% Weight: (!) 329 lb (149.2 kg) Height: 5' 7.01 (1.702 m) Physical Exam: General: NAD RLE Dressing/Skin: Dressing intact; wound vac holding suction SILT: intact throughout stump Motor: able to flex and extend knee Pulses: BCR to stump LABS: Recent Labs 08/18/20 0013 WBC 11.7* HGB 12.6 HCT 39.0 PLT 345 Recent Labs 08/18/20 0013 NA 137 K 5.0 CL 105 CO2 21* BUN 18 CREATININE 0.80 CALCIUM 9.4 No results for input(s): INR in the last 72 hours. No results for input(s): SEDRATE, CRP in the last 72 hours. No results for input(s): HCG in the last 72 hours. Assessment Siobhan is a 59 y.o.female s/p Irrigation and debridement RIGHT below knee amputation with application of wound vac 08/17 Plan No plan for return to [place] NWB RLE Ice/Elevate RLE Pain management as prescribed DVT ppx and medical management as prescribed Monitor Hgb - 12.6 this AM Dressing/wound vac: Wound care consult pending - to change wound vac 08/18/20. Appreciate management Home wound vac ordered, delivery pending Monitor and record output of vac qShift Neurovascular and skin checks DC pending PT recs and wound vac F/u with Dr. Bassett upon discharge. Call office to schedule an appointment Shabbir Trent MD PGY-2 Orthopaedic Surgery [phone] 08/18/2020 6:23 AM Please page on-call resident via PerfectServe or [phone] with any questions or concerns during hours of 6am-6pm. * Sona Mcclain RN - 08/17/2020 3:59 PM EST Pt pain tolerable, free from nausea. Family called and updated, pt transported to with belongings, pt states all belongings are present. Report called to RONAL Cheema * Yasmine Jones RN - 08/17/2020 11:46 AM EST Anesthesia paged for difficult IV, unsuccessful attempts X2. documented in this encounter* Adwoa Rm RN - 07/27/2020 12:16 PM EDT P.t has RBKA and is NWB. Pt assisted to w/c, wheeled to bathroom to void. Denies pain, dizziness ornausea. Pain level 3 out of 10. Pt. States she wants to go home. Instructions given, pt and son verbalize understanding. All questions were answered before discharge. Patient ambulated, denies dizziness or nausea. Tolerating PO fluids and crackers. Vital signs are stable. Patient has changed and is being discharged home in a wheelchair with valuables. documented in this encounter Assessments Diagnosis Cellulitis of right foot- Primary FAY (obstructive sleep apnea) Obstructive sleep apnea (adult) (pediatric) Pain from implanted hardware, initial encounter Arthritis of right subtalar joint Diagnosis Occluded PICC line, initial encounter (HCC)- Primary Pain of right upper extremity Pain Generalized pain Diagnosis Pseudarthrosis after fusion or arthrodesis Arthrodesis status Arthrodesis status Diagnosis Right foot infection- Primary Unspecified local infection of skin and subcutaneous tissue Cellulitis of right lower extremity Cellulitis and abscess of leg, except foot Current episode of major depressive disorder without prior episode, unspecified depression episode severity Osteomyelitis (HCC) Unspecified osteomyelitis, site unspecified Cellulitis Cellulitis and abscess of unspecified site MSSA (methicillin susceptible Staphylococcus aureus) infection Methicillin susceptible Staphylococcus aureus in conditions classified elsewhere and of unspecified site Diagnosis Amputation of right lower extremity BKA Diagnosis Post-op pain Other acute postoperative pain Diagnosis BKA stump complication (HCC) Diagnosis BKA stump complication (HCC) History of right below knee amputation (HCC) Diagnosis 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 * Status post right below-knee amputation morbid obesity hypokalemia hypertension depression HOSPITAL COURSE: Patient does 58-year-old female admitted with erythema and swelling of the right foot. Has chronic last 2 mile at this. Seen by orthopedic surgery infectious disease consults. Underwent right below-knee amputation. Patient is being discharged to rehabilitation today. Patient to complete the course of p.o. antibiotic. stop Date is 05/11/2019 patient has been cleared by all consultants for discharge replace potassium patient seen and examined today lungs clear bilaterally abdomen soft nontender bowel sounds present right below-knee amputation dressing is seen CONSULTANTS: Orthopedic surgery, infectious disease DISCHARGE MEDICATIONS: Siobhan Haas Home Medication Instructions TING:[id number] Printed on:05/09/19 1417 Medication Information amoxicillin-clavulanate (AUGMENTIN) 875-125 MG per tablet Take 1 tablet by mouth every 12 hours for 2 days aspirin EC 81 MG EC tablet Take 1 tablet by mouth daily budesonide-formoterol (SYMBICORT) 160-4.5 MCG/ACT AERO Inhale 2 puffs into the lungs Cholecalciferol (VITAMIN D3) 5000 units TABS Take by mouth daily citalopram (CELEXA) 40 MG tablet Take 40 mg by mouth daily cyclobenzaprine (FLEXERIL) 10 MG tablet nightly docusate sodium (COLACE, DULCOLAX) 100 MG CAPS Take 100 mg by mouth daily fluticasone (FLONASE) 50 MCG/ACT nasal spray 1 spray furosemide (LASIX) 40 MG tablet Take 40 mg by mouth 2 times daily as needed gabapentin (NEURONTIN) 300 MG capsule Take 1 capsule by mouth 2 times daily for 8 days. loratadine (CLARITIN) 10 MG tablet Take 10 mg by mouth daily LORazepam (ATIVAN) 0.5 MG tablet Take 1 tablet by mouth every 6 hours as needed for Anxiety for up to 30 days. metolazone (ZAROXOLYN) 5 MG tablet Take 5 mg by mouth every morning montelukast (SINGULAIR) 10 MG tablet Take 10 mg by mouth nightly omeprazole (PRILOSEC) 20 MG capsule Take by mouth oxyCODONE (OXY-IR) 15 MG immediate release tablet Take 0.5 tablets by mouth every 6 hours as needed for Pain for up to 3 days. polyethylene glycol (GLYCOLAX) packet Take 17 g by mouth daily potassium chloride (KLOR-CON) 20 MEQ packet Take 20 mEq by mouth 2 times daily pramipexole (MIRAPEX) 1.5 MG tablet nightly ramipril (ALTACE) 5 MG capsule Take 5 mg by mouth daily VENTOLIN HFA 108 (90 BASE) MCG/ACT inhaler INHALE 2 PUFFS PO Q 4 H PRN DIET: DIET GENERAL; Dietary Nutrition Supplements: Wound Healing Oral Supplement ACTIVITY: No restriction. up with assist COMPLEXITY OF FOLLOW UP: [] Moderate Complexity: follow up within 7-14 calendar days (67666) [] Severe Complexity: follow up within 7 calendar days ([id number]) FOLLOW UP TESTING, PENDING RESULTS OR REFERRALS AT TRANSITIONAL CARE VISIT: [] Yes [] No PENDING STUDIES: No DISPOSITION: Acute Rehab FACILITY/HOME CARE AGENCY NAME: Follow up with Oj Maddox, CABLE DRILLER - TRIM STENCIL MAKER 49 Counts include 234 beds at the [facility] [address] Rusty Bassett MD [address] [place] [address] [address] [facility] [address] In 2 weeks For wound re-check Oj Maddox, CABLE DRILLER - TRIM STENCIL MAKER 49 Counts include 234 beds at the [facility] [address] In 1 week on INSTRUCTIONS TO MA/SW: Please call patient on day after discharge (must document patient contacted within 2 business days of discharge). FOLLOW UP QUESTIONS FOR MA/SW: 1. Did you get medications filled and taking them as instructed from discharge? 2. Are you following your discharge instructions from your hospital stay? 3. Please confirm patient is scheduled for a follow up appointment within the above time frame. DISCHARGE TIME: > 30 minutes SIGNED: ESTRELLITA LAYTON MD 05/09/2019, 2:17 PM documented in this encounter Chief Complaint and Reason for Visit Chief Complaint ASTHMA FLARE ASTHMA EXACERBATION ASTHMA EXACERBATION ASTHMA EXACERBATION ASTHMA EXACERBATION Confusion Reason for Visit Asthma exacerbation Chief Complaint LLE CELLULITIS, BL P E Reason for Visit Bilateral pulmonary embolism Cellulitis of left lower extremity NAIR (dyspnea on exertion) Hypoxia Tachypnea Hypertension Chief Complaint LLE CELLULITIS, BL P E LLE CELLULITIS, BL PE LLE CELLULITIS, BL PE LLE CELLULITIS, BL PE LLE CELLULITIS, BL PE LLE CELLULITIS, BL PE LLE CELLULITIS, BL PE LLE CELLULITIS, BL PE LLE CELLULITIS, BL PE LLE CELLULITIS, BL PE Reason for Visit Bilateral pulmonary embolism Cellulitis of left lower extremity NAIR (dyspnea on exertion) Hypoxia Sepsis Tachypnea Hypertension Chief Complaint LLE CELLULITIS, BL P E LLE CELLULITIS, BL PE LLE CELLULITIS, BL PE LLE CELLULITIS, BL PE LLE CELLULITIS, BL PE LLE CELLULITIS, BL PE LLE CELLULITIS, BL PE LLE CELLULITIS, BL PE LLE CELLULITIS, BL PE LLE CELLULITIS, BL PE shortness of breath shortness of breath Reason for Visit Bilateral pulmonary embolism Cellulitis of left lower extremity NAIR (dyspnea on exertion) Hypoxia Sepsis Tachypnea Hypertension Chief Complaint LLE CELLULITIS, BL P E LLE CELLULITIS, BL PE LLE CELLULITIS, BL PE LLE CELLULITIS, BL PE LLE CELLULITIS, BL PE LLE CELLULITIS, BL PE LLE CELLULITIS, BL PE LLE CELLULITIS, BL PE LLE CELLULITIS, BL PE LLE CELLULITIS, BL PE shortness of breath shortness of breath Hospital FU SEPSIS DUE TO LE CELLULITIS Reason for Visit Bilateral pulmonary embolism Cellulitis of left lower extremity Hypertension Hypoxia Sepsis Asthma Bilateral pulmonary embolism Cellulitis of left lower extremity Current use of long filler cigar roller machine anticoagulation Septicemia Chronic wound of extremity Chief Complaint LLE CELLULITIS, BL P E LLE CELLULITIS, BL PE LLE CELLULITIS, BL PE LLE CELLULITIS, BL PE LLE CELLULITIS, BL PE LLE CELLULITIS, BL PE LLE CELLULITIS, BL PE LLE CELLULITIS, BL PE LLE CELLULITIS, BL PE LLE CELLULITIS, BL PE shortness of breath shortness of breath Hospital FU SEPSIS DUE TO LE CELLULITIS SEPSIS DUE TO LE CELLULITIS SEPSIS DUE TO LE CELLULITIS SEPSIS DUE TO LE CELLULITIS Reason for Visit Bilateral pulmonary embolism Cellulitis of left lower extremity Hypertension Hypoxia Sepsis Asthma Bilateral pulmonary embolism Cellulitis of left lower extremity Current use of long filler cigar roller machine anticoagulation Septicemia Chronic wound of extremity Chief Complaint LLE CELLULITIS, BL P E LLE CELLULITIS, BL PE LLE CELLULITIS, BL PE LLE CELLULITIS, BL PE LLE CELLULITIS, BL PE LLE CELLULITIS, BL PE EKG LLE CELLULITIS, BL PE LLE CELLULITIS, BL PE LLE CELLULITIS, BL PE LLE CELLULITIS, BL PE shortness of breath shortness of breath Hospital FU SEPSIS DUE TO LE CELLULITIS CP SEPSIS DUE TO LE CELLULITIS SEPSIS DUE TO LE CELLULITIS SEPSIS DUE TO LE CELLULITIS SEPSIS DUE TO LE CELLULITIS ABNORMAL LABS Reason for Visit Bilateral pulmonary embolism Cellulitis of left lower extremity Hypertension Hypoxia Sepsis Asthma Bilateral pulmonary embolism Cellulitis of left lower extremity Septicemia Chief Complaint chest pain COPD EXA Reason for Visit Asthma exacerbation Chief Complaint chest pain Asthma EXA COPD EXA COPD EXA Asthma EXA Reason for Visit Asthma exacerbation Chief Complaint Admit Date LIPOMA ON THIGH December 19, 2024 12: 55pm EXCISION OF LIPOMA- THIGH December 29 12:39pm RESP FAILURE ON BIPAP DUE TO PNEUMONIA A pril 2024 11:59am Reason for Visit Admit Date Lipoma of thigh December 19, 2024 12: 55pm Lipoma of thigh December 29, 2024 12: 39pm Acute hypoxemic respiratory failure Apri l 2024 11:59am Pneumonia Brooke 16th, 2025 11: 59am Chief Complaint Admit Date LIPOMA ON THIGH December 19, 2024 12: 55pm EXCISION OF LIPOMA- THIGH December 29 12:39pm RESP FAILURE ON BIPAP DUE TO PNEUMONIA A pril 2024 11:59am RESP FAILURE ON BIPAP DUE TO PNEUMONIA A pri 2024 12:16pm RESP FAILURE ON BIPAP DUE TO PNEUMONIA A pri 2024 11:00am RESP FAILURE ON BIPAP DUE TO PNEUMONIA A pri 2024 12:01pm RESP FAILURE ON BIPAP DUE TO PNEUMONIA A pri 2024 9:37am Chief Complaint Admit Date RESP FAILURE ON BIPAP DUE TO PNEUMONIA A pri 2024 11:59am RESP FAILURE ON BIPAP DUE TO PNEUMONIA A pri 2024 12:16pm RESP FAILURE ON BIPAP DUE TO PNEUMONIA A pri 2024 11:00am RESP FAILURE ON BIPAP DUE TO PNEUMONIA A pri 2024 12:01pm RESP FAILURE ON BIPAP DUE TO PNEUMONIA A pri 2024 9:37am 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, 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[facility] [employer] January 27, 2025 10:08am LUNG NODULE May 08, 2025 2:4 7pm Reason for Visit Admit Date Pneumonia January 14, 2025 11: 59am Acute hypoxemic respiratory failure Apri l 2024 11:59am Asthma January 27, 2025 10: 08am Morbid obesity January 27, 2025 10: 08am Sleep apnea January 27, 2025 10: 08am Additional Source Comments INFORMATION SOURCE (unrecogn ized section and content) DATE CREATED AUTHOR 03/20/2018 [facility] [place] DATE CREATED AUTHOR AUTHOR'S ORGANIZ ATION 03/22/2018 [facility] DATE CREATED AUTHOR AUTHOR'S ORGANIZ ATION 12/26/2018 [facility] DATE CREATED AUTHOR AUTHOR'S ORGANIZ ATION 12/26/2018 [facility] DATE CREATED AUTHOR AUTHOR'S ORGANIZ ATION 12/28/2018 [facility] DATE CREATED AUTHOR AUTHOR'S ORGANIZ ATION 01/23/2022 [facility] DATE CREATED AUTHOR AUTHOR'S ORGANIZ ATION 03/21/2022 [facility] DATE CREATED AUTHOR AUTHOR'S ORGANIZ ATION 05/04/2023 [facility] ([place]) DATE CREATED AUTHOR AUTHOR'S ORGANIZ ATION 03/28/2024 [facility] DATE CREATED AUTHOR AUTHOR'S ORGANIZ ATION 02/26/2025 [facility] DATE CREATED AUTHOR AUTHOR'S ORGANIZ ATION 04/18/2025 [facility] DATE CREATED AUTHOR AUTHOR'S ORGANIZ ATION 05/09/2025 [facility] DATE CREATED AUTHOR AUTHOR'S ORGANIZ ATION 05/15/2025 [facility] DATE CREATED AUTHOR AUTHOR'S ORGANIZ ATION 05/16/2025 [place] Reason for Visit (unrecogniz ed section and content) Status Reason Specialty Diagnoses / Procedures Referre d By Contact Referred To Contact Diagnoses cellulitis Rt foot, hypokalemia Reason Comments Vascular Access Problem Status Reason Specialty Diagnoses / Procedures Referred By Contact Referred To Contact Authorized Radiology Diagnoses Pseudarthrosis after fusion or arthrodesis Arthrodesis status Procedures NM White Blood Cell Prep Rigo Shelton, [address] [place] [address] Reason Comments Post-op Problem right foot, patient reports redness and swelling at my surgery site Reason Comments Vascular Access Problem PICC would not f lush at home for 11 pm med. Specialty Diagnoses / Procedures Referred By Contac t Referred To Contact Diagnoses Cellulitis of left lower extremity Procedures L03.116 Macrina Schrader [address] [place] [address] [facility] [address] [place] [phone] Referral ID Status Reason Start Date Expiration Date Visits Re quested Visits Authorized [id number] 1 1 Reason Comments New Patient Left shoulder Reason Comments Urinary Incontinence InterStim battery n ot working Reason Onset Date Comments Other 01/14/2023 PICC pulled out. Reason Comments Follow-up Left Shoulder Reason Comments Post-op Left AKA Reason Onset Date Comments Other 01/19/2023 L shoulder pain increasing Reason Onset Date Comments Other 01/19/2023 L shoulder pain increasing Advice Only 01/19/2023 Specialty Diagnoses / Procedures Referred By Li mcneal Referred To Contact Diagnoses Unspecified complication of genitourinary prosthetic device, implant and graft, initial encounter ([facility]) Unspecified complication of genitourinary prosthetic device, implant and graft, initial encounter ([facility]) [T83.9XXA] Procedures ND REVISION/RMVL PERIPHERAL/GASTRIC NPGR INTERSTIM REPLACEMENT Fabrizio Leung MD [address] [place] [address], [address] [place] [address] [address] [place] [address] Referral ID Status Reason Start Date Expiration Date Visits Re quested Visits Authorized [id number] 1 1 Reason Onset Date Comments Cancelled Appointment 03/23/2023 Reason Onset Date Comments Wound Care update 12/27/2022 Reason Comments Post-op #1 Incision and drai nage abscess Left thigh/AKA (Wound dimensions: Length medial to lateral: 12 cm, Width anterior to posterior: 3 cm, Depth: 4 cm . Reason Comments Post-op Post op bandage valdes ge sx 05/08/23 Incision and drainage abscess Left thigh (Wound dimensions: Length medial to lateral: 6 cm, Width anterior to posterior: 3 cm, Depth: 3 cm Reason Onset Date Comments Nurse Navigation 05/10/2023 Reason Comments Post-op Left Leg I&D amputat ion Revision Specialty Diagnoses / Procedures Referred By Li mcneal Referred To Contact Diagnoses 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, initial encounter ([facility]) 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, initial encounter ([facility]) [S78.112A] Procedures ND I&D DEEP ABSC BURSA/HEMATOMA THIGH/KNEE REGION Rusty Bassett MD [address] [place] [address] [address] [place] [address] Referral ID Status Reason Start Date Expiration Date Visits Re quested Visits Authorized [id number] 05/21/2023 1 1 Reason Onset Date Comments Post-op Problem 05/18/2023 Post op bleeding - DOS 05/08/23 Reason Onset Date Comments Appointment Request 05/28/2023 Specialty Diagnoses / Procedures Referred By Li mcneal Referred To Contact Diagnoses 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, initial encounter ([facility]) 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, initial encounter ([facility]) 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, initial encounter ([facility]) [S78.112A] Procedures ND I&D DEEP ABSC BURSA/HEMATOMA THIGH/KNEE REGION LEFT THIGH (ABOVE KNEE AMPUTATION) INCISION AND DRAINAGE Rusty Bassett MD [address] [facility] [address] [place] [address] [facility] [address] [place] [address] Referral ID Status Reason Start Date Expiration Date Visits Re quested Visits Authorized [id number] 1 1 Reason Comments Post-op R AKA I&D Reason Comments Follow-up Lt AKA OM Reason Comments New Patient Bilateral shoulder p ain Reason Comments New Patient Left shoulder pain Specialty Diagnoses / Procedures Referred By Li t Referred To Contact Sports Medicine Diagnoses Left shoulder pain Procedures ND OFFICE/OUTPATIENT [facility] 60 MINUTES Bj Barroso MD [address] [address], [address] [place] [address] [facility] [address] [facility] [address] [place] [address] Referral ID Status Reason Start Date Expiration Date V isits Requested Visits Authorized [id number] Closed Specialty Services Required 10/12/2023 10/11/2024 1 1 Reason Onset Date Comments Appointment 10/24/2023 Reason Comments Follow-up USG injection Left G H Reason Comments Injections USG right GH injecti on Reason Onset Date Comments edema 03/27/2024 Reason Onset Date Comments Pictures sent 09/25/2022 Reason Onset Date Comments admitted 10/17/2022 Reason Comments Follow-up Left leg cellulitis- hospital follow up Reason Comments Leg Swelling L Leg swelling. Ampu tation of L Leg scheduled for tomorrow per surgeon. Specialty Diagnoses / Procedures Referred By Contac t Referred To Contact Diagnoses Superficial incisional surgical site infection Abrasion of lower leg with infection, initial encounter Procedures T81.41XA Nessa Hinojosa MD [address] [facility] [address] [place] [address] [facility] Telemetry [address] [place] [address] Referral ID Status Reason Start Date Expiration Date Visits Re quested Visits Authorized [id number] 1 1 Reason Onset Date Comments Orders 11/06/2022 Specialty Diagnoses / Procedures Referred By Li mcneal Referred To Contact Diagnoses Surgical wound infection Procedures T81.49XA Kimo Stevens MD [address] [place] [address] [facility] Emergency Dept [address] [place] [phone] Referral ID Status Reason Start Date Expiration Date Visits Re quested Visits Authorized [id number] 1 1 Reason Comments Post-op Problem Sent from office for admit. L AKA 1 wk ago. Possible wound infection. Surgery tmrw with dr bassett Specialty Diagnoses / Procedures Referred By Li mcneal Referred To Contact Diagnoses Surgical wound infection Procedures T81.49XA Kimo Stevens MD [address] [place] [address] [facility] Emergency Dept [address] [place] [phone] Reason Comments Wound Check Per EMS, patient is from home, told by Dr. Bassett to come to ED for evaluation. Patient had a left AKA on 10/31/22. Patient states she noticed redness yesterday, today she had purulent drainage. She denies any fevers or chills. Reason Comments Post-op AKA LEFT DOS (2022) Reason Comments New Patient Visit For generalized body pain, since 89. Deny neck and back surgery. No hip or knee pain. No image on file [facility]. Was using the But rans patch and it did not help. Was referred by Madelin for ketamine infusions Rigo Shelton, - 11/04/2018 7:39 AM Lupis Bautista, TRIM STENCIL MAKER - 11/01/2018 2:32 PM EST H&P Notes (unrecognized sect ion and content) INTERVAL HISTORY AND PHYSICAL Patient Name: Siobhan Haas Admit Date: 2001009 MR #: [id number] : 1960 The H&P has been reviewed and the patient has been examined. I concur with the findings of the H&P. There are no significant changes. It is appropriate to proceed with the planned procedure. Rigo Shelton DO 11/04/2018 7:39 AM HISTORY AND PHYSICAL Patient Name: Siobhan Haas Admit Date: 2001009 MR #: [id number] : 1960 Physicians: Rigo Shelton DO (Family); Rigo Shelton* (Referring) Chief Complaint/Reason for Visit: Right foot cellulitis History of Present Illness: Siobhan Haas is a 58 y.o. female presenting from [facility] ([place], [place]) with c/o right foot pain and cellulitis. Patient had a RIGHT SUBTALAR ARTHRODESIS, TALONAVICULAR JOINT ARTHRODESIS, OBTAIN CALCANEAL AUTOGRAFT, OBTAIN TIBIAL AUTOGRAFT, FOOT HARDWARE REMOVAL, INTRAOPERATIVE CULTURES on 10/07/[address] Shelton at [facility]. She has followed up in the office once and had some wound healing issues on the lateral incision and was instructed to be seen at a wound clinic closer to home. She states she called and made that appointment but wasn't able to get in yet. She went to her local ER after her medial incision started to become more red, swollen, and painful. She had intra-op cultures taken on 10/07/2018 that show no growth. Labs from [facility] WBC 8.8, hgb 14, Na 136, K 2.6 (with replacement), creat 0.72, lactate 1.6, CRP 26.9. XR right foot: postoperative changes from subtalar joint and TN joint arthrodesis with medial fixation screw coursing partially through the anteromedial aspect of the talus, with the back end of the screw extending into the soft tissues of the medial midfoot. XR right ankle: Prominent medial and lateral soft tissue swelling of the midfoot and ankle Patient only received morphine, zofran, and potassium at [facility] History: Past Medical History: Diagnosis Date Anxiety Bladder problem leakage Chronic pain disorder Chronic regional pain syndrome Depression Fibromyalgia, primary GERD (gastroesophageal reflux disease) Hypertension Sleep apnea, obstructive bipap Past Surgical History: Procedure Laterality Date ABDOMINOPLASTY ARTHRODESIS FOOT Right 10/07/2018 Procedure: RIGHT SUBTALAR ARTHRODESIS, TALONAVICULAR JOINT ARTHRODESIS, OBTAIN CALCANEAL AUTOGRAFT, OBTAIN TIBIAL AUTOGRAFT, FOOT HARDWARE REMOVAL, INTRAOPERATIVE CULTURES; Surgeon: Rigo Shelton DO; Location: [facility] Main OR; Service: Orthopedic BLADDER SUSPENSION BREAST REDUCTION Bilateral COLONOSCOPY FOOT SURGERY Right HYSTERECTOMY INTERSTIM IMPLANTATION left hip SPINAL CORD STIMULATOR IMPLANT right hip TONSILLECTOMY TOTAL KNEE ARTHROPLASTY Right Family History Problem Relation Age of Onset Pancreatic cancer Mother Pancreatic cancer Father No Known Problems Sister No Known Problems Brother Surgical complications Neg Hx Anesthesia problems Neg Hx Heart disease Neg Hx Clotting disorder Neg Hx Deep vein thrombosis Neg Hx Pulmonary embolism Neg Hx Social History Socioeconomic History Marital status: Spouse name: Not on file Number of children: Not on file Years of education: Not on file Highest education level: Not on file Social Needs Financial resource strain: Not on file Food insecurity - worry: Not on file Food insecurity - inability: Not on file Transportation needs - medical: Not on file Transportation needs - non-medical: Not on file Occupational History Not on file Tobacco Use Smoking status: Former Smoker Last attempt to quit: 1978 Years since quittin.1 Smokeless tobacco: Never Used Substance and Sexual Activity Alcohol use: Yes Comment: socially Drug use: No Sexual activity: Not on file Other Topics Concern Not on file Social History Narrative Not on file Living Arrangements: Family members, Children Support Systems: Children, Family members Functional Status: Minimum assistance Allergy Information: I have reviewed the patient's allergies. Amlodipine Home Medications: Outpatient Medications as of 11/01/2018 Medication Sig buprenorphine (BUTRANS) 10 mcg/hour transdermal patch Place 1 patch on the skin every 7 days . citalopram (CELEXA) 40 MG tablet Take 40 mg by mouth every morning . cyclobenzaprine (FLEXERIL) 10 MG tablet Take 10 mg by mouth every evening . furosemide (LASIX) 40 MG tablet Take 40 mg by mouth 2 (two) times a day as needed . gabapentin (NEURONTIN) 300 MG capsule Take 300 mg by mouth every 8 (eight) hours TAKES 3 TABS AM AND 2 TABS AT NIGHT . meloxicam (MOBIC) 7.5 MG tablet Take 7.5 mg by mouth 2 (two) times a day . metOLazone (ZAROXOLYN) 5 MG tablet Take 5 mg by mouth every morning . montelukast (SINGULAIR) 10 mg tablet Take 10 mg by mouth every morning . omeprazole (PRILOSEC) 40 MG capsule Take 40 mg by mouth every morning . oxyCODONE-acetaminophen (PERCOCET) 5-325 mg per tablet Take 1 tablet by mouth every 6 (six) hours as needed for pain . potassium chloride SA (K-DUR,KLOR-CON) 20 MEQ tablet Take 20 mEq by mouth every morning . pramipexole (MIRAPEX) 1.5 MG tablet Take 3 mg by mouth nightly . spironolactone (ALDACTONE) 25 MG tablet Take 25 mg by mouth every morning . Review of Systems: The following system(s) were reviewed and pertinent findings noted: No vision changed No ear pain No headache No sinus drainage, sore throat No chest pain or shortness of breath + right foot pain No abdominal pain No constipation/diarrhea Physical Examination: Vital Signs: BP 131/82 (BP Location: Left arm, Patient Position: Lying) Pulse 79 Temp 98.1 F (36.7 C) (Oral) Resp 14 Ht 5' 7 Wt (!) 138.7 kg (305 lb 12.5 oz) SpO2 95% BMI 47.89 kg/m General: alert and oriented x3, cooperative Eyes: PERRLA Throat: trachea midline Mouth: mucous membranes moist Cardio: S1, S2, RRR Pulm: clear to auscultation bilaterally Abdominal: BS+ x4, soft, nondistended Extremities: right foot lateral scab over incision, right medial foot with erythema and edema. No drainage noted. See pictures Integ: no rashes noted Neuro: CN 2-12 intact Laboratory and Additional Data Reviewed: Laboratory 11/01/18 2:43 PM Assessment and Plan: Musculoskeletal and Integument Cellulitis of right foot Assessment & Plan Ancef Blood cultures pending CBC/BMP pending Sed/CRP pending XR from OSH reviewed Pain control Pictures taken Cellulitis outlined Patient discussed with Dr. Mckeon and Dr. Shelton Assessment Detail: Based on current clinical information, the expected discharge date is: TBD Associated attestation - Rigo Shelton DO - 11/04/2018 7:39 AM EST I personally evaluated the patient independent of the TRIM STENCIL MAKER. I agree with the assessment and plan. I do not believe this is cellulitis but a reaction to a loose screw. We will plan to remove the screw. We will continue abx as a precaution.in this encounter Vielka Faulkner, JOHANN - 11/05/2018 4:16 PM Terrell Brantley, HAND EXPANSION ENVELOPE MAKER - 11/05/2018 2:06 PM Eva Cotton PT - 11/05/2018 9:48 AM Dorothy Lind MD - 11/05/2018 8:42 AM EST Consult Notes (unrecognized section and content) Occupational Therapy Occupational Therapy Screen Occupation Therapy consult received. Patients chart was reviewed and patient was screened. Patient has no acute Occupational Therapy needs at this time. D/C OT. Associated Order(s): IP CONSULT TO CARE MANAGEMENT COMPLEX DISCHARGE Date: 11/05/2018 Time: 2:06 PM Patient Name: Siobhan Haas Date of : 1960 Sex: Female NADIR following for discharge planning. Met with patient at bedside in order to discuss. Patient plans to discharge to home with her family and would like home health care for RN services and will need home IV antibiotics. Referral made to [place] for IV infusion, Rx faxed and patient will be receiving home care services through [facility]. [place] liaison to meet with patient at the hospital in order to complete education/teaching on home IV antibiotics prior to discharge. [employer] bundle faxed and Day of Discharge bundle faxed to [facility] and [place]. Family to transport patient to home via private auto. Patient reports she does not want home health care for PT/OT and has all needed HME. Discharge Plan Shared UM/CC and RN Source of Information: Other (Comment)(RN) Living Arrangements: Family members, Children Support Systems: Children, Family members Functional Status: Minimum assistance Type of Residence: Private residence Prior to Admission Home Care Services: No Current Home Equipment: Walker, Scooter Insurance Coverage for Prescriptions: Yes Anticipated Discharge Plan Anticipated Facility Type: Undetermined Potential for Readmission Potential for Readmission: No Discharge Readiness Expected Discharge Date: 11/05/18 [facility] Disposition D/C Disposition: Home Health Care Services Related to Current Admission?: Yes Agency/Destination: Other([facility] ([phone], f [phone])) Home Care Needs : Home health care Infusion Agency: [place]([phone], f [phone]) Transportation Type: Auto(Private auto with family) Physical Therapy PHYSICAL THERAPY EVALUATION NOTE After PT session, no further acute care skilled PT needs required. Patient demonstrating independence with all aspects of mobility with good adherence to NWB to RLE with knee walker. All questions regarding mobility addressed and answered. DC PT. Skilled Therapy Needs After Discharge Anticipate Resolution of Current Assessment Limitations Including: Pain, Mechanical Barriers Are Skilled Therapy Services Needed After Discharge: No DME Recommendation: None(pt owns all DME recommended) Rehab Potential: Excellent, For goals Outcomes Measures Prior Function - Basic Mobility Raw Score: 24 Points Prior Function - Basic Mobility % Impaired: 0% functionally impaired AM-PAC - Basic Mobility Raw Score: 20 Points AM-PAC - Basic Mobility % Impaired: 33.32% functionally impaired(after PT session- ) Physical Therapy Assessment History: The following factors influence the patient's participation in the PT plan of care: Personal factors: social barriers and body habitus Environmental factors: steps to enter home, lives alone and steps inside home The following co-morbidities (from this admission or prior) influence the patient's participation in this plan of care: presents with R elective foot surgery with infected hardware, I&D, NWB to RLE, multiple F/A surgeries in the past with NWB, pain, see PM for further details Number of History elements affecting this patient's PT plan of care: 3 or more Examination of Body Systems: The patient presents with impairments of strength, pain, balance, edema, edema, active wound, tissue healing, skin integrity. These impairments result in limitations of gait and stair-climbing. These impairments result in restrictions of household mobility, community mobility and leisure activities. Number of Body Systems elements affecting this patient's PT plan of care: 3 or more Clinical Presentation: The patient's clinical presentation for this PT evaluation is evolving as evidenced by current PT documentation. Activity Tolerance Activity Tolerance: Endurance does not limit participation in activity Therapy Precautions Orthotic Devices: No Weight Bearing Status: X RLE: Non Wt bearing(NWB F/A) General Rehab Precautions: Fall risk Balance Sitting Balance - Static: Sits without support for more than 30 seconds Sitting Balance - Dynamic: Moves / returns trunkal midpoint 1-2 inches in multiple planes Standing Balance - Static: (mod ind with knee scooter) Standing Balance - Dynamic: (SBA progressing to mod ind with knee scooter) Skilled Intervention: patient required cues for facilitation of upright ext posturing with standing with pt demo forward flexion with knee scooter-pt able to self correct with cues; pt demonstrating no LOB or instability with all functional activity this session Bed Mobility Rolling: Independent Supine to Sit: Independent Sit to Supine: (ended session seated EOB) Skilled Intervention: pt demo overall independence with bed mobility while maintaining NWB to RLE Transfers Sit to Stand: Stand by assistance, Supervision, Modified independence Bar Finish Operator: 1 person, Gait belt, Other (Comment)(knee scooter) Skilled Intervention: STS x multiple trials from various surfaces T/O room from various heights and complainces with knee scooter; pt required min cues for knee scooter placement to maximize functional independence while maintaining NWB to RLE; pt progressing to mod ind with knee scooter Gait/Locomotion Gait Assistance: Stand by assistance, Supervision, Modified independence Assistive Device: Other (Comment)(knee scooter) Distance: 300 Feet Pattern: L decreased step length, Over reliance on upper extremities, Forward flexed Weight Bearing Status: Able to maintain, Non-weight bearing(RLE without cues with knee scooter) Stair Management Technique: No rails, Forwards, Backwards(with knee scooter) Stair Management Assistance: Stand by assistance, Modified independence Number of Stairs: 2 Skilled Intervention: prior to gait-knee scooter adjusted to facilitate appropriate height, fitting for patient; pt required min cues for facilitation of upright posturing with scooter, for turns, discussed shoe to LLE; stair navigation-pt ascending step bwd, descending step forward with knee scooter with min cues for safety, to facilitate close distance to step prior to navigating with pt progressing to independence with all aspects of mobility Home Living Type of Home: Apartment Home Layout: One level, Other (Comment)(1 step into bathroom, 1 HARI into apartment) Bathroom Shower/Tub: Walk-in shower Bathroom Toilet: Standard Bathroom Equipment: Commode, Shower chair Bathroom Accessibility: Accessible Home Equipment: Other (Comment), Wheelchair-manual(knee scooter, rollator) Prior Level of Function Level of [place]: Independent with ADLs and functional transfers, Independent with homemaking with ambulation Lives With: Alone(social suport if needed) Comments: pt has been NWB since Oct 07 using the knee scooter as primarily mobility; pt reports no recent falls or concerns with mobility Past Medical History: Diagnosis Date Bilateral lower extremity edema CRPS (complex regional pain syndrome) type I of lower limb Pain Management (Lamberto Bradley) Depression Essential hypertension Fibromyalgia, primary GERD (gastroesophageal reflux disease) Obstructive sleep apnea treated with BiPAP (12-8) Overactive bladder Restless leg syndrome Urinary incontinence \ Past Surgical History: Procedure Laterality Date ABDOMINOPLASTY 2003 ARTHRODESIS FOOT Right 10/07/2018 Procedure: RIGHT SUBTALAR ARTHRODESIS, TALONAVICULAR JOINT ARTHRODESIS, OBTAIN CALCANEAL AUTOGRAFT, OBTAIN TIBIAL AUTOGRAFT, FOOT HARDWARE REMOVAL, INTRAOPERATIVE CULTURES; Surgeon: Rigo Shelton DO; Location: [facility] Main OR; Service: Orthopedic BLADDER SUSPENSION BREAST REDUCTION Bilateral 2001 CARDIAC CATHETERIZATION Right 02/21/2018 [facility] COLONOSCOPY FOOT SURGERY Right HARDWARE REMOVAL FOOT AND ANKLE Right 11/04/2018 Procedure: HARDWARE REMOVAL RIGHT FOOT INCISION AND DRAINAGE; Surgeon: Rigo Shelton DO; Location: [facility] Main OR; Service: Orthopedic HYSTERECTOMY INTERSTIM IMPLANTATION left hip SPINAL CORD STIMULATOR IMPLANT right hip TONSILLECTOMY TOTAL KNEE ARTHROPLASTY Right 1999 For complete objective data, detailed plan of care and patient education refer to: PT EVALUATION flow sheet, PT TREATMENT flow sheet, patient Plan of Care, Plan of Care progress note, and Patient Education. This note stands as the current Discharge Summary upon patient discharge from the hospital or completion of Physical Therapy Plan of Care. Associated Order(s): IP CONSULT TO INFECTIOUS DISEASES INFECTIOUS DISEASES CONSULT NOTE Patient Name: Siobhan Haas Admit Date: 2001009 MR #: [id number] : 1960 Assessment and Plan: 1. Right foot hardware infection - Screw loose with some associated purulence which was removed. Not clearly with deep infection though cannot definitively rule out and may be best to treat with long-term antibiotics pending culture data. 2. HTN - Per med. 3. Fibromyalgia - Per med. Disposition Comments: Planning empiric Ancef through 12/16 and adjust as necessary. Weekly CBC with diff, creatinine, ESR, CRP to Dr. Bonner at [phone]. Physicians: Rigo Shelton DO Chief Complaint/Reason for Visit: right foot infection History of Present Illness: Siobhan Haas is a 58 y.o. female with history of HTN, fibromyalgia who had right foot arthrodesis last month. Has had some wound healing issues. Went to OSH with worsening erythema, edema medial incision. No clear exacerbating factors. Moved to [facility] for further care. No fevers, chills, sweats. Went to OR yesterday. Had a known loose screw which was removed with a little purulence around the head of the screw which was removed. History: Past Medical History: Diagnosis Date Bilateral lower extremity edema CRPS (complex regional pain syndrome) type I of lower limb Pain Management (Lamberto Bradley) Depression Essential hypertension Fibromyalgia, primary GERD (gastroesophageal reflux disease) Obstructive sleep apnea treated with BiPAP (12-8) Overactive bladder Restless leg syndrome Urinary incontinence \ Past Surgical History: Procedure Laterality Date ABDOMINOPLASTY 2003 ARTHRODESIS FOOT Right 10/07/2018 Procedure: RIGHT SUBTALAR ARTHRODESIS, TALONAVICULAR JOINT ARTHRODESIS, OBTAIN CALCANEAL AUTOGRAFT, OBTAIN TIBIAL AUTOGRAFT, FOOT HARDWARE REMOVAL, INTRAOPERATIVE CULTURES; Surgeon: Rigo Shelton DO; Location: [facility] Main OR; Service: Orthopedic BLADDER SUSPENSION BREAST REDUCTION Bilateral 2001 CARDIAC CATHETERIZATION Right 02/21/2018 [facility] FOOT SURGERY Right HARDWARE REMOVAL FOOT AND ANKLE Right 11/04/2018 Procedure: HARDWARE REMOVAL RIGHT FOOT INCISION AND DRAINAGE; Surgeon: Rigo Shelton DO; Location: [facility] Main OR; Service: Orthopedic HYSTERECTOMY INTERSTIM IMPLANTATION left hip SPINAL CORD STIMULATOR IMPLANT right hip TONSILLECTOMY TOTAL KNEE ARTHROPLASTY Right 2000 Family History: No TB Social History Tobacco Use Smoking status: Former Smoker Last attempt to quit: 1978 Years since quittin.1 Smokeless tobacco: Never Used Substance Use Topics Alcohol use: Yes Comment: socially Drug use: No Allergy Information: I have reviewed the patient's allergies. Allergies Allergen Reactions Amlodipine Swelling Home Medications: Outpatient Medications as of 11/05/2018 Medication Sig citalopram (CELEXA) 40 MG tablet Take 40 mg by mouth every morning . cyclobenzaprine (FLEXERIL) 10 MG tablet Take 10 mg by mouth every evening . furosemide (LASIX) 40 MG tablet Take 40 mg by mouth 2 (two) times a day . gabapentin (NEURONTIN) 300 MG capsule Take 300 mg by mouth every 8 (eight) hours TAKES 3 TABS AM AND 2 TABS AT NIGHT . meloxicam (MOBIC) 7.5 MG tablet Take 7.5 mg by mouth 2 (two) times a day . metOLazone (ZAROXOLYN) 5 MG tablet Take 5 mg by mouth every morning . montelukast (SINGULAIR) 10 mg tablet Take 10 mg by mouth every morning . omeprazole (PRILOSEC) 40 MG capsule Take 40 mg by mouth every morning . oxyCODONE-acetaminophen (PERCOCET) 5-325 mg per tablet Take 1 tablet by mouth every 6 (six) hours as needed for pain . potassium chloride SA (K-DUR,KLOR-CON) 20 MEQ tablet Take 40 mEq by mouth every morning Reasons: prevention of low potassium in the blood. pramipexole (MIRAPEX) 1.5 MG tablet Take 3 mg by mouth nightly . spironolactone (ALDACTONE) 25 MG tablet Take 25 mg by mouth every morning . Hospital Medications: Current Facility-Administered Medications Medication Dose Route Frequency Provider Last Rate Last Dose aluminum-magnesium hydroxide-simethicone (MAALOX PLUS) 200-200-20 mg/5 mL suspension 30 mL 30 mL Oral Q4H PRN Lauren Miranda PA-C citalopram (CELEXA) tablet 40 mg 40 mg Oral QAM Gary Oquendo, DO 40 mg at 11/05/18 0745 cyclobenzaprine (FLEXERIL) tablet 10 mg 10 mg Oral Nightly Rigo Shelton, DO 10 mg at 11/04/182017 enoxaparin (LOVENOX) syringe 40 mg 40 mg Subcutaneous BID Lupis Lund, TRIM STENCIL MAKER 40 mg at 11/05/18 0746 famotidine (PEPCID) tablet 20 mg 20 mg Oral Q12H JIL NELSON WahlC 20 mg at 11/05/18 0745 furosemide (LASIX) tablet 40 mg 40 mg Oral Daily Gagan Deluca MD gabapentin (NEURONTIN) capsule 600 mg 600 mg Oral at bedtime Gary Oquendo, DO 600 mg at 11/04/182017 gabapentin (NEURONTIN) capsule 900 mg 900 mg Oral QAM Gary Oquendo, DO 900 mg at 11/05/18 0745 HYDROmorphone (DILAUDID) 0.5 mg/mL injection 0.25-0.5 mg 0.25-0.5 mg Intravenous Q3H PRN Karla See, TRIM STENCIL MAKER 0.5 mg at 11/02/18 0642 HYDROmorphone (DILAUDID) 0.5 mg/mL injection 0.5-1.5 mg 0.5-1.5 mg Intravenous Q3H PRN NELSON WahlC 1.5 mg at 11/05/18 0746 lactated Ringers infusion 100 mL/hr Intravenous Continuous Du Mg MD Stopped at 11/04/18 2352 magnesium hydroxide (MOM) 400 mg/5 mL suspension 2,400 mg 30 mL Oral Daily PRN Lauren Miranda PA-C meloxicam (MOBIC) tablet 7.5 mg 7.5 mg Oral BID Rigo Shelton, DO 7.5 mg at 11/05/18 0746 montelukast (SINGULAIR) tablet 10 mg 10 mg Oral QAM Gary Oquendo DO 10 mg at 11/05/18 0745 naloxone (NARCAN) injection 0.1 mg 0.1 mg Intravenous PRN Karla See CNP And naloxone (NARCAN) injection 0.4 mg 0.4 mg Intravenous PRN Karla See CNP ondansetron (ZOFRAN) solution 4 mg 4 mg Oral Q6H PRN Lupis Lund CNP oxyCODONE-acetaminophen (PERCOCET) 5-325 mg per tablet 1 tablet 1 tablet Oral Q4H PRN Lupis Lund CNP 1 tablet at 11/04/18 2350 pantoprazole (PROTONIX) EC tablet 40 mg 40 mg Oral Daily Gary Oquendo, DO 40 mg at 11/03/18 0823 potassium chloride SA (K-DUR,KLOR-CON) CR tablet 40 mEq 40 mEq Oral Daily Gagan Deluca MD pramipexole (MIRAPEX) tablet 3 mg 3 mg Oral Nightly Gary Oquendo, DO 3 mg at 11/03/18 2210 senna-docusate (SENNA-S) 8.6-50 mg per tablet 1 tablet 1 tablet Oral BID CARMELA Wahl-C 1 tablet at 11/05/18 0745 sodium chloride (PF) (NS) flush 5 mL 5 mL Intravenous PRN CARMELA Wahl-C And sodium chloride (PF) (NS) flush 5 mL 5 mL Intravenous Q8H JIL Lauren Miranda PA-C 5 mL at 11/05/18 0639 And sodium chloride 0.9% (NS) 0-150 mL/hr Intravenous PRN Lauren Miranda PA-C spironolactone (ALDACTONE) tablet 25 mg 25 mg Oral Daily Gagan Deluca MD Review of Systems: The following system(s) were reviewed and pertinent findings noted: Constitutional, Eyes, ENT, CV, Resp, GI, Neuro, Skin, Musc, , Heme/Lym Physical Examination: Vital Signs: BP 128/79 (BP Location: Right arm, Patient Position: Lying) Pulse 68 Temp 97.5 F (36.4 C) (Oral) Resp 14 Ht 5' 7 Wt (!) 138.7 kg (305 lb 12.5 oz) SpO2 96% BMI 47.89 kg/m General: No acute distress Head: Normocephalic, without obvious abnormality, atraumatic Eyes: PERRL, conjunctiva/corneas clear, EOM's intact Throat: Lips, mucosa without lesions Neck: Supple, symmetrical, trachea midline, no adenopathy; No thyromegaly Lungs: Clear to auscultation bilaterally, respirations unlabored,normal respiratory effort Cardiovascular: Regular rate and rhythm, S1 and S2 normal, no murmur, rub or gallop; no edema Abdomen: Soft, non-tender, bowel sounds active,no masses, no organomegaly Skin: Turgor normal, no rashes or lesions or nodules Musculoskeletal: No joint edema Neurologic: CNII-XII intact; grossly normal strength Psych: Mood and affect appropriate; alert and oriented x 3 Laboratory and Additional Data Reviewed: Lab Results Component Value Date WBC 9.12 11/05/2018 HGB 11.6 (L) 11/05/2018 HCT 36.5 11/05/2018 MCV 88.8 11/05/2018 PLT 292 11/05/2018 Lab Results Component Value Date GLUCOSE 125 (H) 11/05/2018 CALCIUM 9.0 11/05/2018 NA 137 11/05/2018 K 4.1 11/05/2018 CL 99 11/05/2018 BUN 11 11/05/2018 CREATININE 0.64 11/05/2018 Cultures: Pending Dorothy Bonner MD; cell ; pager Associated Order(s): IP CONSULT TO HOSPITALIST Gary Oquendo DO [facility] Hospitalists Medical Consultation Patient Name:Siobhan Haas MR #:[id number] :1960 Admit Date: [id number] Physicians: Rigo Shelton DO (Family); Rigo Shelton* (Referring) Perpetual Assessment: Siobhan Haas is a 58 y.o. female who was transferred to [facility] under the care of Orthopedic Surgery (Rigo Shelton) with concern cellulitis of her right post-operative foot. She has presented to [facility] on the morning of 11/01/2018 with a 1 day complaint of right foot redness and swelling surrounding her incision site. [facility] was consulted for medical management. ASSESSMENT AND PLAN Right foot cellulitis Present following foot surgery on 10/07/2017 following a reported wound healing issues involving the lateral incision -Remains on cefazolin 2 g every 8 hours with note that past cultures have been without growth -Given her nontoxic state continue with his regimen with low threshold to expand to broader coverage if she fails to respond to therapy -Role for debridement or reexploration will be deferred to the surgical service Bilateral lower extremity edema Chronic issue this is been managed by [facility] (Alison Gibson CNP) with a regimen of Lasix 40 mg twice daily, metolazone 5 mg daily, and spironolactone 25 mg daily -No history of secondary pulmonary hypertension and no history of heart failure is known to the patient -Continue home regimen last metolazone and follow clinically Hypokalemia Secondary to her aggressive diuretic regimen in the context of normal kidney function -Will obtain a protein creatinine ratio due to exclude nephrotic syndrome is a possibility -For now check a magnesium level continue to replace her potassium Chronic regional pain syndrome type I of the lower extremities, bilateral Follows with pain management (Lamberto Bradley) historically she was maintained on a regimen of gabapentin, buprenorphine transdermal, Percocet cyclobenzaprine and meloxicam -Patient reports she is no longer prescribed buprenorphine transdermal -Defer pain control to surgical service Obstructive sleep apnea on BiPAP Chronically managed with IPAP 12/EPAP 8 she did not bring her home unit -RT consulted to assist with hospital device Essential hypertension Historical diagnosis she reports no longer requiring lisinopril following the start of her diuretic regimen -Follow blood pressure trends and adjust regimen as needed Overactive bladder with urinary incontinence Follows with urogynecology she is status post InterStim placement -No acute issues We will follow with you as needed HISTORY CC: right foot swelling and pain HPI: Siobhan Haas is a 58 y.o. female who was transferred to [facility] under the care of Orthopedic Surgery (Rigo Shelton) with concern cellulitis of her right post-operative foot. She has presented to [facility] on the morning of 11/01/2018 with a 1 day complaint of right foot redness and swelling surrounding her incision site. [facility] was consulted for medical management. Siobhan indicates her first right foot surgery occurred in November 2017. Recovery was complicated by persistent pain and ultimately resulted in a revision surgery October 07, 2018. She reports doing well following the second surgery, however, there is note from the surgical service of delayed wound healing involving the lateral incision. Apparently she was to follow with an outpatient wound care clinic, but she has not yet established care. Prior to October 31, 2018, Siobhan felt that she was doing overall well postoperatively. She reports that on the she had an abrupt onset of increasing pain, pressure, and redness on the medial aspect of her foot. She is not aware of any injury. This change prompted her visit to the [facility] emergency department at approximately 1 AM on 11/01/2018 ultimately leading to her transfer to [facility]. For me she denies any history of fever or shaking chills. She has not noted any new drainage from her foot despite it feeling as though it felt as though it was going to explode. As for her chronic medical conditions is noted that she is on a multi diuretic regimen. Per Siobhan she follows with [facility] and is prescribed but diuretic regimen of furosemide, metolazone, and spironolactone for peripheral edema. She is unaware of any structural heart disease including valvular heart disease or a weakened/stiffened heart. She reports recently undergoing a right cardiac catheterization to evaluate for elevated right-sided pressures. To her knowledge this was negative. She denies any history of coronary disease. She reports doing better since starting his diuretic regimen to the point that her swelling is improved and she is off of antihypertensive medications otherwise. ROS:>>>>>>>>>> The following system(s) were reviewed. Pertinent positive and negative findings are noted in the HPI. [x] Const [x] Eyes [x] ENT [x] Resp [x] CV [x] GI [x] [x] Neuro [x] Musc [x] Skin [] Psych [x] Endo [] Allergy [x] Heme/Lymph PMH/PSH/SH/FH: Past Medical History: Diagnosis Date Asthma, mild CRPS (complex regional pain syndrome) type I of lower limb Pain Management (Lamberto Bradley) Depression Essential hypertension Fibromyalgia, primary GERD (gastroesophageal reflux disease) Overactive bladder Restless leg syndrome Sleep apnea, obstructive bipap Urinary incontinence \ Past Surgical History: Procedure Laterality Date ABDOMINOPLASTY 2003 ARTHRODESIS FOOT Right 10/07/2018 Procedure: RIGHT SUBTALAR ARTHRODESIS, TALONAVICULAR JOINT ARTHRODESIS, OBTAIN CALCANEAL AUTOGRAFT, OBTAIN TIBIAL AUTOGRAFT, FOOT HARDWARE REMOVAL, INTRAOPERATIVE CULTURES; Surgeon: Rigo Shelton DO; Location: [facility] Main OR; Service: Orthopedic BLADDER SUSPENSION BREAST REDUCTION Bilateral 2001 CARDIAC CATHETERIZATION Right 02/21/2018 [facility] COLONOSCOPY FOOT SURGERY Right HYSTERECTOMY INTERSTIM IMPLANTATION left hip SPINAL CORD STIMULATOR IMPLANT right hip TONSILLECTOMY TOTAL KNEE ARTHROPLASTY Right 1999 Family History Problem Relation Age of Onset Pancreatic cancer Mother 50's Diabetes Mother Pancreatic cancer Father 70's Asthma Father Asthma Sister Diabetes Brother Heart failure Maternal Grandmother Diabetes Maternal Grandfather Alzheimer's disease Maternal Grandfather Social History Socioeconomic History Marital status: Spouse name: Not on file Number of children: Not on file Years of education: Not on file Highest education level: Not on file Social Needs Financial resource strain: Not on file Food insecurity - worry: Not on file Food insecurity - inability: Not on file Transportation needs - medical: Not on file Transportation needs - non-medical: Not on file Occupational History Not on file Tobacco Use Smoking status: Former Smoker Last attempt to quit: 1978 Years since quittin.1 Smokeless tobacco: Never Used Substance and Sexual Activity Alcohol use: Yes Comment: socially Drug use: No Sexual activity: Not on file Other Topics Concern Not on file Social History Narrative Not on file Living Arrangements: Family members, Children Support Systems: Children, Family members Functional Status: Minimum assistance Allergy Information:I have reviewed the patient's allergies. Amlodipine Home Medications: Outpatient Medications as of 11/01/2018 Medication Sig buprenorphine (BUTRANS) 10 mcg/hour transdermal patch Place 1 patch on the skin every 7 days . citalopram (CELEXA) 40 MG tablet Take 40 mg by mouth every morning . cyclobenzaprine (FLEXERIL) 10 MG tablet Take 10 mg by mouth every evening . furosemide (LASIX) 40 MG tablet Take 40 mg by mouth 2 (two) times a day as needed . gabapentin (NEURONTIN) 300 MG capsule Take 300 mg by mouth every 8 (eight) hours TAKES 3 TABS AM AND 2 TABS AT NIGHT . meloxicam (MOBIC) 7.5 MG tablet Take 7.5 mg by mouth 2 (two) times a day . metOLazone (ZAROXOLYN) 5 MG tablet Take 5 mg by mouth every morning . montelukast (SINGULAIR) 10 mg tablet Take 10 mg by mouth every morning . omeprazole (PRILOSEC) 40 MG capsule Take 40 mg by mouth every morning . oxyCODONE-acetaminophen (PERCOCET) 5-325 mg per tablet Take 1 tablet by mouth every 6 (six) hours as needed for pain . potassium chloride SA (K-DUR,KLOR-CON) 20 MEQ tablet Take 20 mEq by mouth every morning . pramipexole (MIRAPEX) 1.5 MG tablet Take 3 mg by mouth nightly . spironolactone (ALDACTONE) 25 MG tablet Take 25 mg by mouth every morning . PHYSICAL EXAMINATION << >>>>> Vital Signs: Temp: [98.1 F (36.7 C)-98.5 F (36.9 C)] 98.1 F (36.7 C) Heart Rate: [79-100] 79 Resp: [14-20] 14 BP: (131-163)/(82-103) 131/82 GENERAL: NAD. Up in bed. Interactive. EYES: Conjunctiva and sclera clear. Conjugate. ENT: Hearing intact. Pharynx clear NECK: Trachea midline. No stridor. CV: RRR. No distended neck veins. Trace lower extremity edema RESP: Clear, no rales, rhonchi, wheezes or increase in respiratory effort, no use of accessory muscles GI: Non-distended, +BS, soft, non-tender. No guarding, masses or rebound MUSC: Normal tone without deformity SKIN: Warm and dry. Right foot incisions noted with erythema surrounding the medial incision. No purulence no drainage. NEURO: No focal deficits PSYCH: Mood and affect are appropriate. Cooperative. Laboratory and Additional Data Acquired or Reviewed: [x] Laboratory [x] Transcriptions [x] Radiology [x] Microbiology [x] Cardiology [x] Outside Records [x] Medications [] Family Time Spent: in this encounter Quick Note - Darcy Armendariz RN - 11/05/2018 4:52 PM ESTSubjective & Objective - Holly Suh CNP - 11/05/2018 11:26 AM ESTPlan of Care - Shila Chapman RN - 11/01/2018 9:07 AM EST Miscellaneous Notes (unrecog nized section and content) Pt is d/c, IV removed, PICC line placed prior to discharge, Giuliano pham met the pt in hospital prior to discharge, 2-scripts give to the pt, 1-aspirin, 1- oxycodone, explained follow up appt, signs or symptoms to return to the ER or call 911 if life threatening. Pt states she understands. Pt will require a wheelchair when dressed and ready. Subjective/Objective: Perpetual Assessment: POD #1 HARDWARE REMOVAL RIGHT FOOT INCISION AND DRAINAGE. Patient doing well. Pain is controlled. Tolerating diet. No nausea or vomiting.Voiding. Did well ambulating with therapy. Wants to go home. Physical Examination: BP 128/79 (BP Location: Right arm, Patient Position: Lying) Pulse 68 Temp 97.5 F (36.4 C) (Oral) Resp 14 Ht 5' 7 Wt (!) 138.7 kg (305 lb 12.5 oz) SpO2 96% BMI 47.89 kg/m General: NAD; Alert and oriented x3 Lungs: Clear without rales, rhonchi or wheezes; no increased respiratory effort Cardiovascular: RRR; no edema Abdomen: Positive bowel sounds; soft; non tender Foot and Ankle Post-Op Exam: RLE post op dressing CDI. NVI. Moving toes. Cap Refill less than 3 sec. Extremity pink and warm. Psych: Mood and affect appropriate. Skin: No rashes; normal turgor. Intake/Output last 3 shifts: I/O last 3 completed shifts: In: 1594.5 [I.V.:1005; IV Piggyback:589.5] Out: 755 [Urine:750; Blood:5] Results/Medications Reviewed 11/05/18 11:26 AM: Laboratory, Medications and Transcriptions Noted BMI of 47.89. Clinical Indicators: Weight: 138.7kg or 306 lbs Height: 5'7 Past medical history includes: Depression, Fibromylagia, Chronic Pain Disorder, Hypertension, FAY Please provide an associated diagnosis related to the abnormal BMI. For Example: Morbid obesity Obesity Overweight BMI is not significant Other (please specify) Unable to determine Thank you, NORMA Giles, RN Clinical Coin Counter And Wrapper [phone] After business hours you may contact Sonam Christopher at [phone] (Weekdays until 10 PM and weekends 8 AM - 10 PM) Brief Post Operative Note Patient Name: Siobhan Haas : 1960 (58 y.o.) Date of Service: 11/01/2018 - 11/04/2018 CSN: [id number] Procedure(s): HARDWARE REMOVAL RIGHT FOOT INCISION AND DRAINAGE Pre-Operative Diagnoses: * T84.498 Post-Operative Diagnoses: * Same as Pre-Op Diagnosis Surgeon(s) and Role: * Rigo Shelton DO - Primary Anesthesiologist: Du Mg MD TELEPHONE MAINTAINER: Lynette Miller CRNA Platform Builder: Rosa Spence RN Physician Automotive Engineering Teacher: Lauren Miranda PA-C Scrub Person Preceptor: [facility] Scrub Person Orientee: [facility] [place] Nurse Float: Skylar Mares RN Operative findings: superficial purulence and loose screw. Remaining hardware well fixed. Intra and immediate post-operative complications: n/a Type of anesthesia used: General Estimated blood loss: Minimal Estimated urine output: Specimen(s): ID Type Source Tests Collected by Time Destination 1 : midfoot Tissue Foot, Right TISSUE AEROBIC CULTURE, TISSUE AFB CULTURE, TISSUE ANAEROBIC CULTURE, TISSUE FUNGUS CULTURE Rigo Shelton, 11/04/2018 0950 2 : midfoot Tissue Foot, Right TISSUE AEROBIC CULTURE, TISSUE AFB CULTURE, TISSUE ANAEROBIC CULTURE, TISSUE FUNGUS CULTURE Rigo Shelton, 11/04/2018 0952 Implant(s): * No implants in log * Drain(s): Wound(s): Wound (Inpatient and Home Care Only) 11/01/18 Foot (mid) Right (Active) Dressing Status Other (comment) 11/04/2018 7:41 AM Wound Bed Characteristics Intact;Dry 11/04/2018 7:41 AM Drainage Amount None 11/04/2018 7:41 AM Odor None 11/04/2018 7:41 AM Alexus-wound Assessment Edema;Errythema 11/03/2018 8:05 PM Incision 10/07/18 Ankle Right (Active) Rigo Shelton DO 11/04/2018 10:02 AM SW received updates per RN that pt is here through the w/e for planned surgery on Sunday to remove hardware. She advised SW to f/u with pt after surgery to re- assess needs. SW placed TING note to CUR to review clinicals for potential upgrade for IP. Associated Problem(s): Cellulitis of right foot POD #1 - Pt HD stable - Pain tolerable with oral pain meds - Cont IS q1 hr - Cont dvt prophylaxis with Lovenox, adam hose, and early ambulation as tolerated - Cont NWB - ID consult, Dr. Bonner following. - Continue IV antibiotics per ID at discharge (Ancef). PICC line to be placed today. - Cont bowel regimen - Maintain dressing - Pt seen and evaluated by PT, pt has all dme - Ortho stable, okay to dc today once home health arranged for IV antibiotics and PICC placed. - [facility] for medical management, appreciate care, plan discussed with Dr. Deluca. - Questions answered. Patient updated at bedside. Patient seen and plan discussed with Dr. Shelton. Pain Manage acute pain 11/01/2018 09 by Shila Chapman, RN Note Let your nurse know when having pain. Take pain medication as ordered by physician. Report effectiveness of pain medication. Falls, Risk of Absence of falls 11/01/2018 0901 by Shila Chapman, RN Note Ask for assistance when ambulating. Use assistive device when necessary for safety and stability. in this encounter Yola Godinez RN - 12/04/2018 7:29 AM Ann Marie Flynn RN - 12/04/2018 7:09 AM Ann Marie Flynn RN - 12/04/2018 4:23 AM Bj Alicea RN - 12/04/2018 3:05 AM EST ED Notes (unrecognized secti on and content) Left a message for Elyssa Woodruff, wound care/PICC nurse about patient and needing a new PICC line Report given to: RONAL Aceves Patient up to restroom with no concerns noted. Gingerale given per request. Report given to: Hanna VILLEDA Phleb's contacted at this time for draw for second set Physician contacted about seeing pt. Physician contacted by this rn to see pt Pt presents to ed with c/o PICC line that is not flushing; pt also reports of redness and soreness around PICC line insertion site; pt states symptoms began yesterday; pt says home health RN advised her to ED for treatment; pt says PICC line was placed here at [facility]; in this encounter Ordered Prescriptions (unrec ognized section and content) Prescription Sig Dispensed Refills Start Date End Da te ondansetron (ZOFRAN-ODT) 4 MG disintegrating tabletIndications:Tear of peroneal tendon, left, subsequent encounter Take 1 tablet by mouth 3 times daily as needed for Nausea or Vomiting 21 tablet 0 08/04/2021 aspirin EC 81 MG EC tabletIndications:Tear of peroneal tendon, left, subsequent encounter Take 1 tablet by mouth daily 30 tablet 0 08/04/2021 oxyCODONE-acetaminophen (PERCOCET) 5-325 MG per tabletIndications:Tear of peroneal tendon, left, subsequent encounter Take 1 tablet by mouth every 6 hours as needed for Pain for up to 7 days. Intended supply: 7 days. Take lowest dose possible to manage pain 28 tablet 0 08/04/2021 08/11/2021 Prescription Sig Dispensed Refills Start Date End Da te oxyCODONE-acetaminophen (PERCOCET) 5-325 MG per tabletIndications:Dehisc ence of closure of skin, sequela,Infected wound Take 1 tablet by mouth every 6 hours as needed for Pain for up to 7 days. Intended supply: 7 days. Take lowest dose possible to manage pain 28 tablet 0 12/19/2021 12/26/2021 Prescription Sig Dispensed Refills Start Date End Da te oxyCODONE-acetaminophen (PERCOCET) 5-325 MG per tabletIndications:S/P split thickness skin graft Take 1 tablet by mouth every 6 hours as needed for Pain for up to 7 days. Intended supply: 7 days. Take lowest dose possible to manage pain 28 tablet 0 01/11/2022 01/18/2022 Scheduled Active and Recently Administ ered Medications (unrecognized section and content) Medication Order 08/02/2021 08/03/2021 08/04/2021 acetaminophen (TYLENOL) tablet 1,000 mg (COMPLETED) 1,000 mg, Oral, ONCE, On [place] 08/04/21 at 0845, For 1 dose, Maximum dose of acetaminophen is 4000 mg from all sources in 24 hours. Do not administer if patient has taken tylenol <4 hours earlier. Do not give if contraindicated ie. patient has active liver disease or cirrhosis., Pre-op (day of surgery) 0858 (Given - Provid er: Jing Christine RN) ceFAZolin (ANCEF) 3000 mg in sodium chloride 0.9% 100 mL IVPB (COMPLETED) 3,000 mg, IntraVENous, COMPANY MANAGER TO O.R., 1 dose, On [place] 08/04/21 at 0845, Administer within 1 hour prior to incision. Recommend to repeat in 3-4 hours after initial dose if still intra-op., Pre-op (day of surgery) 1000 (Given by Other Clinician - Provider: Didi Aguilar RN) dexameth sod gubr-apuzl-nahm (TAP) syringe SOSY 30 mL (COMPLETED) 30 mL, Transabdominal Plane, ONCE, On [place] 08/04/21 at 1000, For 1 dose, Not a TAP block, popliteal block, PACU only 0946 (Given - Provid er: Dorina Galo, RONAL) dexamethasone sod phos-bupiv (TAP) syringe 10 mL (COMPLETED) 10 mL, Transabdominal Plane, Administer over 7 Minutes, ONCE, On [place] 08/04/21 at 1015, For 1 dose, Not a TAP block, popliteal block 0946 (Given - Provid er: Dorina Galo RN)0953 (Due: Stopped - Provider: Dorina Galo RN) famotidine (PEPCID) tablet 20 mg (COMPLETED) 20 mg, Oral, ONCE, On [place] 08/04/21 at 0845, For 1 dose, Pre-op (day of surgery) 0858 (Given - Provid er: Jing Christine RN) lidocaine PF 1 % injection 5 mL (COMPLETED) 5 mL, IntraDERmal, ONCE, On [place] 08/04/21 at 1000, For 1 dose, Draw up for preparation of administration during block procedure., PACU only 0946 (Given - Provid er: Dorina Galo, RONAL) ropivacaine (NAROPIN) 0.5% injection 10 mL (COMPLETED) 10 mL, Infiltration, ONCE, On [place] 08/04/21 at 1000, For 1 dose, Draw up 10ml for Saphenous block., PACU only 0946 (Given - Provid er: Dorina Galo, RONAL) sodium chloride flush 0.9 % injection 5-40 mL 5-40 mL, IntraVENous, EVERY 12 HOURS SCHEDULED (2 times per day), First dose on [place] 08/04/21 at 0900, For Line Patency: Peripheral IV = 5 mL; Midline or Central Line = 10 mL/lumen. If following IV push medication, administer flush at same rate as the IV push. Flush volume is determined by type of infusion therapy being given. For non-viscous solutions use: Peripheral IV = 5 mL Midline or Central Line = 10 mL/lumen For viscous solutions (i.e. blood components, parenteral nutrition, contrast media, or after obtaining blood sample) use: Peripheral IV = 10 mL Midline or Central Line = 20 mL/lumen, Pre-op (day of surgery) 0900 (Due)2100 (Due) Continuous Medication Order 08/02/2021 08/03/2021 08/04/2021 lactated ringers infusion IntraVENous, at 50 mL/hr, CONTINUOUS, Starting on [place] 08/04/21 at 0845, Upon admission to sameday - please start iv if patient does not have iv access. Use 500ml NS for patients on dialysis., Pre-op (day of surgery) 0857 (New Bag - Prov ider: Jing Christine RN) PRN Medication Order 08/02/2021 08/03/2021 08/04/2021 0.9 % sodium chloride bolus 500 mL (3.49 mL/kg), IntraVENous, at 500 mL/hr, Administer over 1 Hours, ONCE PRN, Nausea, Starting on [place] 08/04/21 at 0937, For 1 dose, Use caution in patients with a diagnosis of Heart failure or Kidney failure., PACU only 0.9 % sodium chloride infusion 25 mL, IntraVENous, at 100 mL/hr, PRN, If patient receiving piggyback infusions without ordered maintenance IV fluids or with frequent/long duration piggyback infusions, Starting on [place] 08/04/21 at 0821, Administer at the same rate as the piggyback being infused., Pre-op (day of surgery) diphenhydrAMINE (BENADRYL) injection 12.5 mg 12.5 mg, IntraVENous, ONCE PRN, Itching, Starting on [place] 08/04/21 at 0937, For 1 dose, PACU only fentaNYL (SUBLIMAZE) injection 100 mcg 100 mcg, IntraVENous, PRN, administration per anesthesiologist direction. Up to 100 micrograms., Starting on [place] 08/04/21 at 0937, Pull 2 ml vial of Fentanyl and draw up in PACU for anesthesia block placement with administration per anesthesiologist direction. Up to 100 micrograms., PACU only 0946 (Given - Provid er: Dorina Galo RN) hydrALAZINE (APRESOLINE) injection 5 mg 5 mg, IntraVENous, EVERY 10 MIN PRN, High Blood Pressure, Starting on [place] 08/04/21 at 0937, PRN for SBP > 160 for 2 consecutive measurements, and if one of the following conditions is met: 1) If IV labetolol is ineffective. 2) If HR is under 60. 3) If patient has heart block, COPD or asthma. If both labetalol and hydralazine ineffective, notify anesthesiologist., PACU only HYDROmorphone (DILAUDID) injection 0.25 mg 0.25 mg, IntraVENous, EVERY 5 MIN PRN, Pain Moderate (4-6), Starting on [place] 08/04/21 at 0937, For 4 doses, Phase I and Phase II- Initial therapy for moderate pain (4-6). Restricted to a 50 minute time frame starting when the patient can verbally state their pain score. If secondary medications are utilized, do not return to initial therapy medications. SDS and, PACU only HYDROmorphone (DILAUDID) injection 0.25 mg 0.25 mg, IntraVENous, EVERY 5 MIN PRN, Pain Moderate (4-6), Starting on [place] 08/04/21 at 0937, For 4 doses, Phase I - Secondary therapy to be used after initial therapy medication doses are ineffective . If secondary medications are utilized, do not return to initial therapy medications., PACU only HYDROmorphone (DILAUDID) injection 0.5 mg 0.5 mg, IntraVENous, EVERY 5 MIN PRN, Pain Severe (7-10), Starting on [place] 08/04/21 at 0937, For 4 doses, Phase I or Phase II- Initial therapy for severe pain (7-10). Restricted to a 50 minute time frame starting when the patient can verbally state their pain score. If secondary medications are utilized, do not return to initial therapy medications. Sameday and, PACU only HYDROmorphone (DILAUDID) injection 1 mg 1 mg, IntraVENous, EVERY 5 MIN PRN, Pain Severe (7-10), Starting on X[place] 08/04/21 at 0937, For 4 doses, Phase I - Secondary therapy to be used after initial therapy medication doses are ineffective. If secondary medications are utilized, do not return to initial therapy medications., PACU only labetalol (NORMODYNE;TRANDATE) injection 5 mg 5 mg, IntraVENous, EVERY 10 MIN PRN, High Blood Pressure, Starting on X[place] 08/04/21 at 0937, PRN for SBP >160 for 2 consecutive measurements, if HR is 60 or greater. If beta leonardo is contraindicated (HR less than 60, heart block, COPD or asthma) use hydralazine IV order., PACU only lidocaine PF 1 % injection 1 mL 1 mL, IntraDERmal, ONCE PRN, IV start, Starting on Xochilt 08/04/21 at 0821, For 1 dose, Pre-op (day of surgery) meperidine (DEMEROL) injection 12.5 mg 12.5 mg, IntraVENous, EVERY 5 MIN PRN, Shivering, , Starting on Xochilt 08/04/21 at 0937, May give every 5 minutes to max of 50mg., PACU only midazolam (VERSED) injection 2 mg 2 mg, IntraVENous, PRN, Anxiety, administration per anesthesiologist direction. Up to two mg., Starting on Xochilt 08/04/21 at 0937, Pull 2 mg vial of midazolam draw up in PACU for anesthesia block placement with administration per anesthesiologist direction. Up to two mg., PACU only 0946 (Given - Provid er: Dorina Galo, RN) ondansetron (ZOFRAN) injection 4 mg 4 mg, IntraVENous, ONCE PRN, Nausea, Starting on X[place]ilt 08/04/21 at 0937, For 1 dose, Initial antiemetic therapy., PACU only oxyCODONE (ROXICODONE) immediate release tablet 10 mg(Linked Group 1) 10 mg, Oral, PRN, Pain Severe (7-10), Starting on Xochlit 08/04/21 at 0937, For 1 dose, PHASE II, PACU only oxyCODONE (ROXICODONE) immediate release tablet 5 mg(Linked Group 1) 5 mg, Oral, PRN, Pain Moderate (4-6), Starting on Xochilt 08/04/21 at 0937, For 1 dose, PHASE II, PACU only promethazine (PHENERGAN) injection 6.25 mg 6.25 mg, IntraVENous, ONCE PRN, Nausea, Starting on Xochilt 08/04/21 at 0937, For 1 dose, Caution if used IV:Check IV site for infiltrate prior to and during administration. Secondary antiemetic therapy. For IV administration, dilute to 10ml with normal saline. Must be administered over at least 10 minutes., PACU only sodium chloride flush 0.9 % injection 5-40 mL 5-40 mL, IntraVENous, PRN, Line Care, Starting on Xochilt 08/04/21 at 0821, For Line Patency: Peripheral IV = 5 mL; Midline or Central Line = 10 mL/lumen. If following IV push medication, administer flush at same rate as the IV push. Flush volume is determined by type of infusion therapy being given. For non-viscous solutions use: Peripheral IV = 5 mL Midline or Central Line = 10 mL/lumen For viscous solutions (i.e. blood components, parenteral nutrition, contrast media, or after obtaining blood sample) use: Peripheral IV = 10 mL Midline or Central Line = 20 mL/lumen, Pre-op (day of surgery) Linked Groups Order Group 1: oxyCODONE (ROXICODONE) immediate release tablet 5 mgJump to med 5 mg, Oral, PRN, Pain Moderate (4-6), Starting on X[place]ilt 08/04/21 at 0937, For 1 dose
PHASE II
PACU only Or oxyCODONE (ROXICODONE) immediate release tablet 10 mgJump to med 10 mg, Oral, PRN, Pain Severe (7-10), Starting on Xocihlt 08/04/21 at 0937, For 1 dose
PHASE II
PACU only Scheduled Medication Order 11/11/2021 11/12/2021 11/13/2021 alteplase (CATHFLO) injection 1 mg (COMPLETED) 1 mg, IntraCATHeter, ONCE, On [place] 11/13/21 at 0200, For 1 dose, NOT FOR PERIPHERAL LINE USE. Recommend using dose of 2 mg if lumen volume 1 mL or greater. If not using premixed 1 mg syringe, dilute each vial with 2.2 mL sterile water to final concentration of 1 mg/mL. Mix by gently swirling until completely dissolved. Do not shake. Instill dose into occluded catheter lumen. Do not force solution into catheter. 0235 (Given - Provid er: Bj Carroll RN) alteplase (CATHFLO) injection 1 mg (COMPLETED) 1 mg, IntraCATHeter, ONCE, On Sun11/13/21 at 0215, For 1 dose, NOT FOR PERIPHERAL LINE USE. Recommend using dose of 2 mg if lumen volume 1 mL or greater. If not using premixed 1 mg syringe, dilute each vial with 2.2 mL sterile water to final concentration of 1 mg/mL. Mix by gently swirling until completely dissolved. Do not shake. Instill dose into occluded catheter lumen. Do not force solution into catheter. 234 (Given - Provid er: Bj Carroll RN) Scheduled Medication Order 12/17/2021 12/18/2021 12/19/2021 acetaminophen (TYLENOL) tablet 1,000 mg (COMPLETED) 1,000 mg, Oral, ONCE, On Sun12/19/21 at 0745, For 1 dose, Maximum dose of acetaminophen is 4000 mg from all sources in 24 hours. Do not administer if patient has taken tylenol <4 hours earlier. Do not give if contraindicated ie. patient has active liver disease or cirrhosis., Pre-op (day of surgery) 0814 (Given - Provid er: Shari Sheth RN) ceFAZolin (ANCEF) 3000 mg in sodium chloride 0.9% 100 mL IVPB (COMPLETED) 3,000 mg, IntraVENous, COMPANY MANAGER TO O.R., 1 dose, On Sun12/19/21 at 0745, Administer within 1 hour prior to incision. Recommend to repeat in 3-4 hours after initial dose if still intra-op., Pre-op (day of surgery) 1000 (Given by Other Clinician - Provider: Didi Aguilar RN - Comment: given in or by cnra) famotidine (PEPCID) tablet 20 mg (COMPLETED) 20 mg, Oral, ONCE, On Sun12/19/21 at 0745, For 1 dose, Pre-op (day of surgery) 0814 (Given - Provid er: Shari Sheth RN) sodium chloride flush 0.9 % injection 5-40 mL 5-40 mL, IntraVENous, EVERY 12 HOURS SCHEDULED (2 times per day), First dose on Sun12/19/21 at 0915, For Line Patency: Peripheral IV = 5 mL; Midline or Central Line = 10 mL/lumen. If following IV push medication, administer flush at same rate as the IV push. Flush volume is determined by type of infusion therapy being given. For non-viscous solutions use: Peripheral IV = 5 mL Midline or Central Line = 10 mL/lumen For viscous solutions (i.e. blood components, parenteral nutrition, contrast media, or after obtaining blood sample) use: Peripheral IV = 10 mL Midline or Central Line = 20 mL/lumen, PACU only 0915 (Due)2100 (Due) Continuous Medication Order 12/17/2021 12/18/2021 12/19/2021 lactated ringers infusion IntraVENous, at 50 mL/hr, CONTINUOUS, Starting on Sun12/19/21 at 0745, Upon admission to sameday - please start iv if patient does not have iv access. Use 500ml NS for patients on dialysis., Pre-op (day of surgery) 0745 (Due) PRN Medication Order 12/17/2021 12/18/2021 12/19/2021 0.9 % sodium chloride infusion 25 mL, IntraVENous, at 100 mL/hr, PRN, If patient receiving piggyback infusions without ordered maintenance IV fluids or with frequent/long duration piggyback infusions, Starting on Sun12/19/21 at 0854, Administer at the same rate as the piggyback being infused., PACU only diphenhydrAMINE (BENADRYL) injection 12.5 mg 12.5 mg, IntraVENous, ONCE PRN, Itching, Starting on Sun12/19/21 at 0854, For 1 dose, PACU only hydrALAZINE (APRESOLINE) injection 10 mg(Linked Group 1) 10 mg, IntraVENous, EVERY 15 MIN PRN, High Blood Pressure, for SBP greater than 180 mmHg for 2 consecutive measurements taken from different sites, Starting on Sun12/19/21 at 0854, For 2 doses, If heart rate is greater than 60 bpm, hold hydralazine and use labetalol if ordered, otherwise contact provider. Inform provider if SBP is still greater than 180 mmHg 10 minutes after second antihypertensive dose is administered., PACU only HYDROmorphone (DILAUDID) injection 0.25 mg 0.25 mg, IntraVENous, EVERY 5 MIN PRN, Pain Moderate (4-6), Starting on Sun12/19/21 at 0854, For 4 doses, Phase I and Phase II- Initial therapy for moderate pain (4-6). Restricted to a 50 minute time frame starting when the patient can verbally state their pain score. If secondary medications are utilized, do not return to initial therapy medications. SDS and, PACU only HYDROmorphone (DILAUDID) injection 0.5 mg 0.5 mg, IntraVENous, EVERY 5 MIN PRN, Pain Severe (7-10), Starting on Sun12/19/21 at 0854, For 4 doses, Phase I or Phase II- Initial therapy for severe pain (7-10). Restricted to a 50 minute time frame starting when the patient can verbally state their pain score. If secondary medications are utilized, do not return to initial therapy medications. Sameday and, PACU only 1103 (Given - Provid er: Didi Aguilar RN) labetalol (NORMODYNE;TRANDATE) injection 10 mg(Linked Group 1) 10 mg, IntraVENous, EVERY 15 MIN PRN, High Blood Pressure, for SBP greater than 180 mmHg for 2 consecutive measurements taken from different sites., Starting on Sun12/19/21 at 0854, For 2 doses, If heart rate is 60 bpm or less hold labetalol and use hydralazine if ordered, otherwise contact provider. Inform provider if SBP is still greater than 180 mmHg, 10 minutes after second antihypertensive dose is administered., PACU only lidocaine PF 1 % injection 1 mL 1 mL, IntraDERmal, ONCE PRN, IV start, Starting on Sun12/19/21 at 0729, For 1 dose, Pre-op (day of surgery) meperidine (DEMEROL) injection 12.5 mg 12.5 mg, IntraVENous, EVERY 5 MIN PRN, Shivering, , Starting on Sun12/19/21 at 0854, May give every 5 minutes to max of 50mg., PACU only ondansetron (ZOFRAN) injection 4 mg 4 mg, IntraVENous, ONCE PRN, Nausea, Starting on Sun12/19/21 at 0854, For 1 dose, Initial antiemetic therapy., PACU only oxyCODONE (ROXICODONE) immediate release tablet 5 mg (COMPLETED) 5 mg, Oral, PRN, Pain Moderate (4-6), Starting on Sun12/19/21 at 0854, For 1 dose, PHASE II, PACU only 1128 (Given - Provid er: Didi Aguilar RN) sodium chloride flush 0.9 % injection 5-40 mL 5-40 mL, IntraVENous, PRN, Line Care, After every IV line use, Starting on Sun12/19/21 at 0854, For Line Patency: Peripheral IV = 5 mL; Midline or Central Line = 10 mL/lumen. If following IV push medication, administer flush at same rate as the IV push. Flush volume is determined by type of infusion therapy being given. For non-viscous solutions use: Peripheral IV = 5 mL Midline or Central Line = 10 mL/lumen For viscous solutions (i.e. blood components, parenteral nutrition, contrast media, or after obtaining blood sample) use: Peripheral IV = 10 mL Midline or Central Line = 20 mL/lumen, PACU only Linked Groups Order Group 1: labetalol (NORMODYNE;TRANDATE) injection 10 mgJump to med 10 mg, IntraVENous, EVERY 15 MIN PRN, High Blood Pressure, for SBP greater than 180 mmHg for 2 consecutive measurements taken from different sites., Starting on Sun12/19/21 at 0854, For 2 doses
If heart rate is 60 bpm or less hold labetalol and use hydralazine if ordered, otherwise contact provider. Inform provider if SBP is still greater than 180 mmHg, 10 minutes after second antihypertensive dose is administered.
PACU only Or hydrALAZINE (APRESOLINE) injection 10 mgJump to med 10 mg, IntraVENous, EVERY 15 MIN PRN, High Blood Pressure, for SBP greater than 180 mmHg for 2 consecutive measurements taken from different sites, Starting on Sun12/19/21 at 0854, For 2 doses
If heart rate is greater than 60 bpm, hold hydralazine and use labetalol if ordered, otherwise contact provider. Inform provider if SBP is still greater than 180 mmHg 10 minutes after second antihypertensive dose is administered.
PACU only Scheduled Medication Order 01/09/2022 01/10/2022 01/11/2022 acetaminophen (TYLENOL) tablet 1,000 mg (COMPLETED) 1,000 mg, Oral, ONCE, 1 dose, On Sun01/11/22 at 1315, Maximum dose of acetaminophen is 4000 mg from all sources in 24 hours. Do not administer if patient has taken tylenol <4 hours earlier. Do not give if contraindicated ie. patient has active liver disease or cirrhosis., Pre-op (day of surgery) 1305 (Given - Provid er: Shari Sheth RN) ceFAZolin (ANCEF) 3000 mg in sodium chloride 0.9% 100 mL IVPB (COMPLETED) 3,000 mg, IntraVENous, COMPANY MANAGER TO O.R., 1 dose, On Sun01/11/22 at 1315, Antimicrobial Indications: Surgical Prophylaxis, Administer within 1 hour prior to incision. Recommend to repeat in 3-4 hours after initial dose if still intra-op., Pre-op (day of surgery) 1445 (Given by Other Clinician - Provider: Jenae Wright RN) famotidine (PEPCID) tablet 20 mg (COMPLETED) 20 mg, Oral, ONCE, 1 dose, On Sun01/11/22 at 1315, Pre-op (day of surgery) 1305 (Given - Provid er: Shari Sheth RN) sodium chloride flush 0.9 % injection 5-40 mL 5-40 mL, IntraVENous, EVERY 12 HOURS SCHEDULED (2 times per day), First dose on Sun01/11/22 at 2100, Until Discontinued, For Line Patency: Peripheral IV = 5 mL; Midline or Central Line = 10 mL/lumen. If following IV push medication, administer flush at same rate as the IV push. Flush volume is determined by type of infusion therapy being given. For non-viscous solutions use: Peripheral IV = 5 mL Midline or Central Line = 10 mL/lumen For viscous solutions (i.e. blood components, parenteral nutrition, contrast media, or after obtaining blood sample) use: Peripheral IV = 10 mL Midline or Central Line = 20 mL/lumen, PACU only 2100 (Due) Continuous Medication Order 01/09/2022 01/10/2022 01/11/2022 lactated ringers infusion IntraVENous, at 50 mL/hr, CONTINUOUS, Starting on Sun01/11/22 at 1315, Upon admission to sameday - please start iv if patient does not have iv access. Use 500ml NS for patients on dialysis., Pre-op (day of surgery) 1315 (Due) PRN Medication Order 01/09/2022 01/10/2022 01/11/2022 0.9 % sodium chloride bolus 500 mL (3.24 mL/kg), IntraVENous, at 1,000 mL/hr, Administer over 0.5 Hours, PRN, Anti-nausea, Starting on Sun01/11/22 at 1329, PACU only 0.9 % sodium chloride infusion 25 mL, IntraVENous, at 100 mL/hr, PRN, If patient receiving piggyback infusions without ordered maintenance IV fluids or with frequent/long duration piggyback infusions, Starting on Sun01/11/22 at 1329, Administer at the same rate as the piggyback being infused., PACU only diphenhydrAMINE (BENADRYL) injection 12.5 mg 12.5 mg, IntraVENous, ONCE PRN, 1 dose, Starting on Sun01/11/22 at 1330, Until Sun01/11/22 at 2359, Itching, PACU only hydrALAZINE (APRESOLINE) injection 10 mg(Linked Group 1) 10 mg, IntraVENous, EVERY 15 MIN PRN, 2 doses, Starting on Sun01/11/22 at 1330, Until Discontinued, High Blood Pressure, for SBP greater than 160 mmHg for 2 consecutive measurements taken from different sites, If heart rate is greater than 60 bpm, hold hydralazine and use labetalol if ordered, otherwise contact provider. Inform provider if SBP is still greater than 160 mmHg 10 minutes after second antihypertensive dose is administered., PACU only HYDROmorphone (DILAUDID) injection 0.25 mg HYDROmorphone (DILAUDID) 1.5mg IV is equivalent to morphine 10mg IV, 0.25 mg, IntraVENous, EVERY 5 MIN PRN, 4 doses, Starting on Sun01/11/22 at 1330, Until Discontinued, Pain Moderate (4-6), Phase I and Phase II- Initial therapy for moderate pain (4-6). Restricted to a 90 minute time frame starting when the patient can verbally state their pain score. If oral meds are utilized, do not return to initial therapy medications. SDS and, PACU only HYDROmorphone (DILAUDID) injection 0.5 mg HYDROmorphone (DILAUDID) 1.5mg IV is equivalent to morphine 10mg IV, 0.5 mg, IntraVENous, EVERY 5 MIN PRN, 4 doses, Starting on Sun01/11/22 at 1330, Until Discontinued, Pain Severe (7-10), Phase I or Phase II- Initial therapy for severe pain (7-10). Restricted to a 90 minute time frame starting when the patient can verbally state their pain score. If oral meds are utilized, do not return to initial therapy medications. SDS and, PACU only 1558 (Given - Provid er: Jenae Wright RN) labetalol (NORMODYNE;TRANDATE) injection 10 mg(Linked Group 1) 10 mg, IntraVENous, EVERY 15 MIN PRN, 2 doses, Starting on Sun01/11/22 at 1330, Until Discontinued, High Blood Pressure, for SBP greater than 160 mmHg for 2 consecutive measurements taken from different sites., If heart rate is 60 bpm or less hold labetalol and use hydralazine if ordered, otherwise contact provider. Inform provider if SBP is still greater than 160 mmHg, 10 minutes after second antihypertensive dose is administered., PACU only lidocaine PF 1 % injection 1 mL 1 mL, IntraDERmal, ONCE PRN, 1 dose, Starting on Sun01/11/22 at 1252, Until Sun01/11/22 at 2359, IV start, Pre-op (day of surgery) meperidine (DEMEROL) injection 12.5 mg 12.5 mg, IntraVENous, EVERY 5 MIN PRN, Starting on Sun01/11/22 at 1329, Until Discontinued, Shivering, , May give every 5 minutes to max of 50mg., PACU only ondansetron (ZOFRAN) injection 4 mg 4 mg, IntraVENous, ONCE PRN, 1 dose, Starting on Sun01/11/22 at 1330, Until Sun01/11/22 at 2359, Nausea, Initial antiemetic therapy., PACU only oxyCODONE (ROXICODONE) immediate release tablet 5 mg (COMPLETED) 5 mg, Oral, PRN, 1 dose, Starting on Sun01/11/22 at 1330, Until Sun01/11/22 at 1610, Pain Moderate (4-6), PHASE II, PACU only 1610 (Given - Provid er: Jenae Wright RN) sodium chloride flush 0.9 % injection 5-40 mL 5-40 mL, IntraVENous, PRN, Starting on Sun01/11/22 at 1329, Until Discontinued, Line Care, After every IV line use, For Line Patency: Peripheral IV = 5 mL; Midline or Central Line = 10 mL/lumen. If following IV push medication, administer flush at same rate as the IV push. Flush volume is determined by type of infusion therapy being given. For non-viscous solutions use: Peripheral IV = 5 mL Midline or Central Line = 10 mL/lumen For viscous solutions (i.e. blood components, parenteral nutrition, contrast media, or after obtaining blood sample) use: Peripheral IV = 10 mL Midline or Central Line = 20 mL/lumen, PACU only Linked Groups Order Group 1: labetalol (NORMODYNE;TRANDATE) injection 10 mgJump to med 10 mg, IntraVENous, EVERY 15 MIN PRN, 2 doses, Starting on Sun01/11/22 at 1330, Until Discontinued, High Blood Pressure, for SBP greater than 160 mmHg for 2 consecutive measurements taken from different sites.
If heart rate is 60 bpm or less hold labetalol and use hydralazine if ordered, otherwise contact provider. Inform provider if SBP is still greater than 160 mmHg, 10 minutes after second antihypertensive dose is administered.
PACU only Or hydrALAZINE (APRESOLINE) injection 10 mgJump to med 10 mg, IntraVENous, EVERY 15 MIN PRN, 2 doses, Starting on Sun01/11/22 at 1330, Until Discontinued, High Blood Pressure, for SBP greater than 160 mmHg for 2 consecutive measurements taken from different sites
If heart rate is greater than 60 bpm, hold hydralazine and use labetalol if ordered, otherwise contact provider. Inform provider if SBP is still greater than 160 mmHg 10 minutes after second antihypertensive dose is administered.
PACU only Scheduled Medication Order 02/20/2023 02/21/2023 02/22/2023 acetaminophen (Tylenol) tablet 1,000 mg (COMPLETED) 1,000 mg, Oral, Once, On Xochilt 02/22/23 at 0845, For 1 dose, Preprocedure, Maximum dose of acetaminophen is 4000 mg from all sources in 24 hours. Do not administer if patient has taken tylenol <4 hours earlier. Do not give if contraindicated ie. patient has active liver disease or cirrhosis. 0903 (Given - Provid er: Kia Randle RN) ciprofloxacin (Cipro) IVPB 400 mg (COMPLETED) 400 mg, IntraVENous, at 200 mL/hr, Administer over 60 Minutes, Sprayer Insecticide to O.R., On Xochilt 02/22/23 at 0845, For 1 dose, Preprocedure, Administer within 1 hour prior to incision premix bag, Suspected Indication (Select all that apply): Surgical Prophylaxis 1152 (Given - Provid er: Andrea Rome CRNA) famotidine (Pepcid) tablet 20 mg (COMPLETED) 20 mg, Oral, Once, On Xochilt 02/22/23 at 0845, For 1 dose, Preprocedure 0903 (Given - Provid er: Kia Randle RN) gabapentin (Neurontin) capsule 100 mg 100 mg, Oral, Once, On Xochilt 02/22/23 at 0845, For 1 dose, Preprocedure, For Age >69 or Low GFR. 0845 (Canceled Entry - Provider: Automatic Discharge Provider - Comment: Automatically canceled at discontinue of medication order) metroNIDAZOLE (Flagyl) IVPB 500 mg (COMPLETED) 500 mg, IntraVENous, at 100 mL/hr, Administer over 60 Minutes, Sprayer Insecticide to O.R., On Xochilt 02/22/23 at 0845, For 1 dose, Preprocedure, Administer within 1 hour prior to incision., Suspected Indication (Select all that apply): Surgical Prophylaxis 1141 (Given - Provid er: Andrea Rome CRNA) sodium chloride 0.9% (NS) flush 10 mL 10 mL, IntraVENous, Every 12 hours scheduled (2 times per day), First dose on Xochilt 02/22/23 at 0900, Preprocedure 0900 (Canceled Entry - Provider: Automatic Discharge Provider - Comment: Automatically canceled at discontinue of medication order)2100 (Canceled Entry - Provider: Automatic Discharge Provider - Comment: Automatically canceled at discontinue of medication order) sodium chloride 0.9% (NS) flush 10 mL 10 mL, IntraVENous, Every 12 hours scheduled (2 times per day), First dose on Xochilt 02/22/23 at 2100, Recovery (only) 2100 (Canceled Entry - Provider: Automatic Discharge Provider - Comment: Automatically canceled at discontinue of medication order) sodium chloride 0.9% (NS) flush 5-40 mL 5-40 mL, IntraVENous, Every 12 hours, First dose on Xochilt 02/22/23 at 0845, Preprocedure, For Line Patency: Peripheral IV = 5 mL; Midline or Central Line = 10 mL/lumen. If following IV push medication, administer flush at same rate as the IV push. Flush volume is determined by type of infusion therapy being given. For non-viscous solutions use: Peripheral IV = 5 mL Midline or Central Line = 10 mL/lumen For viscous solutions (i.e. blood components, parenteral nutrition, contrast media, or after obtaining blood sample) use: Peripheral IV = 10 mL Midline or Central Line = 20 mL/lumen 0845 (Canceled Entry - Provider: Automatic Discharge Provider - Comment: Automatically canceled at discontinue of medication order)204 (Canceled Entry - Provider: Automatic Discharge Provider - Comment: Automatically canceled at discontinue of medication order) Continuous Medication Order 02/20/2023 02/21/2023 02/22/2023 lactated Ringer's (LR) infusion 50 mL/hr, IntraVENous, Continuous, Starting on Xochilt 02/22/23 at 0845, Preprocedure, Upon admission to sameday - please start iv if patient does not have iv access. Use 500ml NS for patients on dialysis. 0913 (New Bag - Prov ider: Kia Randle RN)1130 (Continued by Anesthesia - Provider: Andrea Rome CRNA)1227 (Stopped - Provider: Andrea Rome CRNA) lactated ringers infusion 125 mL/hr, IntraVENous, Continuous, Starting on Xochilt 02/22/23 at 1245, Recovery (only) 1245 (Canceled Entry - Provider: Automatic Discharge Provider - Comment: Automatically canceled at discontinue of medication order) sodium chloride 0.9 % infusion 125 mL/hr, IntraVENous, Continuous, Starting on Xochilt 02/22/23 at 0845, Preprocedure 0845 (Canceled Entry - Provider: Automatic Discharge Provider - Comment: Automatically canceled at discontinue of medication order) PRN Medication Order 02/20/2023 02/21/2023 02/22/2023 ALPRAZolam (Xanax) disintegrating tablet 0.25 mg 0.25 mg, Oral, PRN, anxiety, Starting on Xochilt 02/22/23 at 0916, Preprocedure 0918 (Given - Provid er: Kia Randle RN) diphenhydrAMINE (BENADryl) injection 12.5 mg 12.5 mg, IntraVENous, Once PRN, itching, Starting on Xochilt 02/22/23 at 1236, For 1 dose, Recovery (only) fentaNYL (Sublimaze) injection 25 mcg 25 mcg, IntraVENous, Every 5 min PRN, moderate pain (4-6), Starting on Xochilt 02/22/23 at 1236, For 3 doses, Recovery (only), Phase I and Phase II- Initial therapy for moderate pain (4-6). Restricted to a 90 minute time frame starting when the patient can verbally state their pain score. If after 2 doses the pain score does not decrease by more than one point, then call the provider. If oral meds are utilized, do not return to initial therapy medications. fentaNYL (Sublimaze) injection 50 mcg 50 mcg, IntraVENous, Every 5 min PRN, severe pain (7-10), Starting on Xochilt 02/22/23 at 1236, For 3 doses, Recovery (only), Phase I and Phase II- Initial therapy for severe pain (7-10). Restricted to a 90 minute time frame starting when the patient can verbally state their pain score. If after 2 doses the pain score does not decrease by more than one point, then call the provider. If oral meds are utilized, do not return to initial therapy medications. 1249 (Given - Provid er: Christiano Mcgarry RN) hydrALAZINE (Apresoline) injection 5 mg(Linked Group 1) 5 mg, IntraVENous, Every 15 min PRN, high blood pressure, for SBP greater than 160 mmHg for 2 consecutive measurements taken from different sites, Starting on Xochilt 02/22/23 at 1236, For 2 doses, Recovery (only), PRN for SBP > 160 for 2 consecutive measurements, and if one of the following conditions is met: 1) If IV labetolol is ineffective. 2) If HR is under 60. 3) If patient has heart block, COPD or asthma. If both labetalol and hydralazine ineffective, notify anesthesia provider. labetalol (Normodyne,Trandate) injection 5 mg(Linked Group 1) 5 mg, IntraVENous, Every 10 min PRN, high blood pressure, for SBP greater than 160 mmHg for 2 consecutive measurements taken from different sites., Starting on Xochilt 02/22/23 at 1236, For 2 doses, Recovery (only), PRN for SBP >160 for 2 consecutive measurements, if HR is 60 or greater. If beta leonardo is contraindicated (HR less than 60, heart block, COPD or asthma) use hydralazine IV order. lidocaine-EPINEPHrine (Xylocaine W/EPI) 1 %-1:[id number] injection (CANCELED) As needed, Starting on Xochilt 02/22/23 at 1207, Intraprocedure 1207 (Given - Provid er: Fabrizio Leung MD) meperidine (Demerol) injection 12.5 mg 12.5 mg, IntraVENous, Every 5 min PRN, shivering, Starting on Xochilt 02/22/23 at 1236, For 4 doses, Recovery (only), May give every 5 minutes to max of 50mg. ondansetron (Zofran) injection 4 mg 4 mg, IntraVENous, Once PRN, nausea, Starting on Xohcilt 02/22/23 at 1236, For 1 dose, Recovery (only), Initial antiemetic therapy. oxyCODONE (Roxicodone) immediate release tablet 10 mg(Linked Group 2) 10 mg, Oral, PRN, severe pain (7-10), Starting on Xochilt 02/22/23 at 1236, For 1 dose, Recovery (only), PHASE II oxyCODONE (Roxicodone) immediate release tablet 5 mg(Linked Group 2) 5 mg, Oral, PRN, moderate pain (4-6), Starting on Xochilt 02/22/23 at 1236, For 1 dose, Recovery (only), PHASE II sodium chloride 0.9 % bolus 500 mL 500 mL, IntraVENous, at 1,000 mL/hr, Administer over 0.5 Hours, PRN, Anti-nausea, Starting on Xochilt 02/22/23 at 1236, Recovery (only), Indications: Anti-nausea sodium chloride 0.9 % infusion 5-250 mL/hr, IntraVENous, PRN, if patient receiving piggyback infusions and maintenance fluids are not ordered OR KVO fluids to protect IV site / prevent frequent line interruptions / long duration, Starting on Xochilt 02/22/23 at 0841, Preprocedure, For piggyback infusion, administer at same rate as piggyback for a total of 25 mL. Enter 25 mL into dose field and piggyback rate into rate field of order. If piggyback is infusing at a rate less than 100 mL/hr, enter 25 mL into dose field and 100 mL/hr into rate field of order. For KVO fluids, enter rate of 20 mL/hr or less into rate field of order. sodium chloride 0.9 % infusion 5-250 mL/hr, IntraVENous, PRN, if patient receiving piggyback infusions and maintenance fluids are not ordered OR KVO fluids to protect IV site / prevent frequent line interruptions/ long duration, Starting on Xochilt 02/22/23 at 0841, Preprocedure, For piggyback infusion, administer at same rate as piggyback for a total of 25 mL. Enter 25 mL into dose field and piggyback rate into rate field of order. If piggyback is infusing at a rate less than 100 mL/hr, enter 25 mL into dose field and 100 mL/hr into rate field of order. For KVO fluids, enter rate of 20 mL/hr or less into rate field of order. sodium chloride 0.9 % infusion 5-250 mL/hr, IntraVENous, PRN, if patient receiving piggyback infusions and maintenance fluids are not ordered OR KVO fluids to protect IV site / prevent frequent line interruptions/ long duration, Starting on Xochilt 02/22/23 at 1236, Recovery (only), For piggyback infusion, administer at same rate as piggyback for a total of 25 mL. Enter 25 mL into dose field and piggyback rate into rate field of order. If piggyback is infusing at a rate less than 100 mL/hr, enter 25 mL into dose field and 100 mL/hr into rate field of order. For KVO fluids, enter rate of 20 mL/hr or less into rate field of order. sodium chloride 0.9% (NS) flush 10 mL 10 mL, IntraVENous, PRN, line care, Starting on Xochilt 02/22/23 at 0841, Preprocedure, After every IV line use sodium chloride 0.9% (NS) flush 10 mL 10 mL, IntraVENous, PRN, line care, Starting on Xochilt 02/22/23 at 1236, Recovery (only), After every IV line use sodium chloride 0.9% (NS) flush 5-40 mL 5-40 mL, IntraVENous, PRN, line care, After every IV line use, Starting on Xochilt 02/22/23 at 0841, Preprocedure, For Line Patency: Peripheral IV = 5 mL; Midline or Central Line = 10 mL/lumen. If following IV push medication, administer flush at same rate as the IV push. Flush volume is determined by type of infusion therapy being given. For non-viscous solutions use: Peripheral IV = 5 mL Midline or Central Line = 10 mL/lumen For viscous solutions (i.e. blood components, parenteral nutrition, contrast media, or after obtaining blood sample) use: Peripheral IV = 10 mL Midline or Central Line = 20 mL/lumen sterile water irrigation solution (CANCELED) As needed, Starting on Xochilt 02/22/23 at 1203, Intraprocedure 1203 (Given - Provid er: Fabrizio Leung MD - Comment: 80MG OF GENTAMYCIN IN 1,000ML STERILE WATER) Linked Groups Order Group 1: labetalol (Normodyne,Trandate) injection 5 mgJump to med 5 mg, IntraVENous, Every 10 min PRN, high blood pressure, for SBP greater than 160 mmHg for 2 consecutive measurements taken from different sites., Starting on Xochilt 02/22/23 at 1236, For 2 doses, Recovery (only)
PRN for SBP >160 for 2 consecutive measurements, if HR is 60 or greater. If beta leonardo is contraindicated (HR less than 60, heart block, COPD or asthma) use hydralazine IV order.
Or hydrALAZINE (Apresoline) injection 5 mgJump to med 5 mg, IntraVENous, Every 15 min PRN, high blood pressure, for SBP greater than 160 mmHg for 2 consecutive measurements taken from different sites, Starting on Xochilt 02/22/23 at 1236, For 2 doses, Recovery (only)
PRN for SBP > 160 for 2 consecutive measurements, and if one of the following conditions is met: 1) If IV labetolol is ineffective. 2) If HR is under 60. 3) If patient has heart block, COPD or asthma. If both labetalol and hydralazine ineffective, notify anesthesia provider.
Group 2: oxyCODONE (Roxicodone) immediate release tablet 5 mgJump to med 5 mg, Oral, PRN, moderate pain (4-6), Starting on Xochilt 02/22/23 at 1236, For 1 dose, Recovery (only)
PHASE II
Or oxyCODONE (Roxicodone) immediate release tablet 10 mgJump to med 10 mg, Oral, PRN, severe pain (7-10), Starting on Xochilt 02/22/23 at 1236, For 1 dose, Recovery (only)
PHASE II
Scheduled Medication Order 05/06/2023 05/07/2023 05/08/2023 acetaminophen (Tylenol) tablet 1,000 mg (COMPLETED) 1,000 mg, Oral, Once, On e 05/08/23 at 0915, For 1 dose, Preprocedure, Maximum dose of acetaminophen is 4000 mg from all sources in 24 hours. Do not administer if patient has taken tylenol <4 hours earlier. Do not give if contraindicated ie. patient has active liver disease or cirrhosis. 0935 (Given - Provid er: Anette Villalobos RN) clindamycin in NS (Cleocin) IVPB 900 mg (COMPLETED) 900 mg, IntraVENous, at 50 mL/hr, Administer over 60 Minutes, Once, On Sun05/08/23 at 0915, For 1 dose, Preprocedure, Administer within 1 hour prior to Incision., Suspected Indication (Select all that apply): Surgical Prophylaxis 1331 (Given - Provid er: Owen Salmeron, MITCH - TELEPHONE MAINTAINER) famotidine (Pepcid) tablet 20 mg (COMPLETED) 20 mg, Oral, Once, On Sun05/08/23 at 0915, For 1 dose, Preprocedure 0935 (Given - Provid er: Anette Villalobos RN) gabapentin (Neurontin) capsule 100 mg (COMPLETED) 100 mg, Oral, Once, On Sun05/08/23 at 0915, For 1 dose, Preprocedure, For Age >69 or Low GFR. 0935 (Given - Provid er: Anette Villalobos RN) LORazepam (Ativan) injection 0.5 mg (COMPLETED) 0.5 mg, IntraVENous, Once, On Sun05/08/23 at 1500, For 1 dose, Recovery (only), For IV doses dilute dose with 1ml NS. 1451 (Given - Provid er: Federica Ray RN) sodium chloride 0.9% (NS) flush 10 mL 10 mL, IntraVENous, Every 12 hours scheduled (2 times per day), First dose on Sun05/08/23 at 0915, Preprocedure 0915 (Canceled Entry - Provider: Automatic Discharge Provider - Comment: Automatically canceled at discontinue of medication order) sodium chloride 0.9% (NS) flush 10 mL 10 mL, IntraVENous, Every 12 hours scheduled (2 times per day), First dose on Sun05/08/23 at 2100, Recovery (only) sodium chloride 0.9% (NS) flush 5-40 mL 5-40 mL, IntraVENous, Every 12 hours, First dose on Sun05/08/23 at 0915, Preprocedure, For Line Patency: Peripheral IV = 5 mL; Midline or Central Line = 10 mL/lumen. If following IV push medication, administer flush at same rate as the IV push. Flush volume is determined by type of infusion therapy being given. For non-viscous solutions use: Peripheral IV = 5 mL Midline or Central Line = 10 mL/lumen For viscous solutions (i.e. blood components, parenteral nutrition, contrast media, or after obtaining blood sample) use: Peripheral IV = 10 mL Midline or Central Line = 20 mL/lumen 0915 (Canceled Entry - Provider: Automatic Discharge Provider - Comment: Automatically canceled at discontinue of medication order) Continuous Medication Order 05/06/2023 05/07/2023 05/08/2023 lactated Ringer's (LR) infusion 50 mL/hr, IntraVENous, Continuous, Starting on Sun05/08/23 at 0915, Preprocedure, Upon admission to sameday - please start iv if patient does not have iv access. Use 500ml NS for patients on dialysis. 926 (New Bag - Prov ider: Anette Villalobos RN)1317 (Continued by Anesthesia - Provider: MITCH Odell CRNA)1317 (Paused - Provider: MITCH Odell CRNA - Comment: Switch to gravity)1318 (Restarted - Provider: Owen Salmeron, MITCH - TELEPHONE MAINTAINER)1439 (Anesthesia Volume Adjustment - Provider: Yousuf Bedolla APRN - [facility]DR[facility]) lactated ringers infusion 125 mL/hr, IntraVENous, Continuous, Starting on Sun05/08/23 at 1430, Recovery (only) 1430 (Canceled Entry - Provider: Automatic Discharge Provider - Comment: Automatically canceled at discontinue of medication order) PRN Medication Order 05/06/2023 05/07/2023 05/08/2023 ALPRAZolam (Xanax) disintegrating tablet 0.25 mg (COMPLETED) 0.25 mg, Oral, PRN, anxiety, Starting on Sun05/08/23 at 0910, For 1 dose, Preprocedure, Using dry hands, place tablet on top of tongue and allow to disintegrate. Administration with water is not necessary. 0935 (Given - Provid er: Anette Villalobos RN) diphenhydrAMINE (BENADryl) injection 12.5 mg 12.5 mg, IntraVENous, Once PRN, itching, Starting on Sun05/08/23 at 1429, For 1 dose, Recovery (only) hydrALAZINE (Apresoline) injection 5 mg(Linked Group 1) 5 mg, IntraVENous, Every 15 min PRN, high blood pressure, for SBP greater than 160 mmHg for 2 consecutive measurements taken from different sites, Starting on Sun05/08/23 at 1429, For 2 doses, Recovery (only), PRN for SBP > 160 for 2 consecutive measurements, and if one of the following conditions is met: 1) If IV labetolol is ineffective. 2) If HR is under 60. 3) If patient has heart block, COPD or asthma. If both labetalol and hydralazine ineffective, notify anesthesia provider. HYDROmorphone (Dilaudid) injection 0.5 mg 0.5 mg, IntraVENous, Every 15 min PRN, severe pain (7-10), Starting on Sun05/08/23 at 1439, For 2 doses, Recovery (only), Phase I and Phase II- Initial therapy for severe pain (7-10). Restricted to a 90 minute time frame starting when the patient can verbally state their pain score. If after 2 doses the pain score does not decrease by more than one point, then call the provider. If oral meds are utilized, do not return to initial therapy medications. 1451 (Given - Provid er: Federica Ray RN) labetalol (Normodyne,Trandate) injection 5 mg(Linked Group 1) 5 mg, IntraVENous, Every 10 min PRN, high blood pressure, for SBP greater than 160 mmHg for 2 consecutive measurements taken from different sites., Starting on Sun05/08/23 at 1429, For 2 doses, Recovery (only), PRN for SBP >160 for 2 consecutive measurements, if HR is 60 or greater. If beta leonardo is contraindicated (HR less than 60, heart block, COPD or asthma) use hydralazine IV order. meperidine (Demerol) injection 12.5 mg 12.5 mg, IntraVENous, Every 5 min PRN, shivering, Starting on Sun05/08/23 at 1429, For 4 doses, Recovery (only), May give every 5 minutes to max of 50mg. ondansetron (Zofran) injection 4 mg 4 mg, IntraVENous, Once PRN, nausea, Starting on Sun05/08/23 at 1429, For 1 dose, Recovery (only), Initial antiemetic therapy. oxyCODONE (Roxicodone) immediate release tablet 10 mg (COMPLETED) 10 mg, Oral, PRN, severe pain (7-10), Starting on Sun05/08/23 at 1429, For 1 dose, Recovery (only), PHASE II 1526 (Given - Provid er: Federica Ray RN) sodium chloride 0.9 % bolus 500 mL 500 mL, IntraVENous, at 1,000 mL/hr, Administer over 0.5 Hours, PRN, Anti-nausea, Starting on Sun05/08/23 at 1429, Recovery (only), Indications: Anti-nausea sodium chloride 0.9 % infusion 5-250 mL/hr, IntraVENous, PRN, if patient receiving piggyback infusions and maintenance fluids are not ordered OR KVO fluids to protect IV site / prevent frequent line interruptions / long duration, Starting on Sun05/08/23 at 0910, Preprocedure, For piggyback infusion, administer at same rate as piggyback for a total of 25 mL. Enter 25 mL into dose field and piggyback rate into rate field of order. If piggyback is infusing at a rate less than 100 mL/hr, enter 25 mL into dose field and 100 mL/hr into rate field of order. For KVO fluids, enter rate of 20 mL/hr or less into rate field of order. sodium chloride 0.9 % infusion 5-250 mL/hr, IntraVENous, PRN, if patient receiving piggyback infusions and maintenance fluids are not ordered OR KVO fluids to protect IV site / prevent frequent line interruptions/ long duration, Starting on Sun05/08/23 at 0910, Preprocedure, For piggyback infusion, administer at same rate as piggyback for a total of 25 mL. Enter 25 mL into dose field and piggyback rate into rate field of order. If piggyback is infusing at a rate less than 100 mL/hr, enter 25 mL into dose field and 100 mL/hr into rate field of order. For KVO fluids, enter rate of 20 mL/hr or less into rate field of order. sodium chloride 0.9 % infusion 5-250 mL/hr, IntraVENous, PRN, if patient receiving piggyback infusions and maintenance fluids are not ordered OR KVO fluids to protect IV site / prevent frequent line interruptions/ long duration, Starting on Sun05/08/23 at 1429, Recovery (only), For piggyback infusion, administer at same rate as piggyback for a total of 25 mL. Enter 25 mL into dose field and piggyback rate into rate field of order. If piggyback is infusing at a rate less than 100 mL/hr, enter 25 mL into dose field and 100 mL/hr into rate field of order. For KVO fluids, enter rate of 20 mL/hr or less into rate field of order. sodium chloride 0.9 % irrigation solution (CANCELED) As needed, Starting on Sun05/08/23 at 1338, Intraprocedure 1338 (Given - Provid er: Rusty Bassett MD) sodium chloride 0.9% (NS) flush 10 mL 10 mL, IntraVENous, PRN, line care, Starting on Sun05/08/23 at 0910, Preprocedure, After every IV line use sodium chloride 0.9% (NS) flush 10 mL 10 mL, IntraVENous, PRN, line care, Starting on Sun05/08/23 at 1429, Recovery (only), After every IV line use sodium chloride 0.9% (NS) flush 5-40 mL 5-40 mL, IntraVENous, PRN, line care, After every IV line use, Starting on Sun05/08/23 at 0910, Preprocedure, For Line Patency: Peripheral IV = 5 mL; Midline or Central Line = 10 mL/lumen. If following IV push medication, administer flush at same rate as the IV push. Flush volume is determined by type of infusion therapy being given. For non-viscous solutions use: Peripheral IV = 5 mL Midline or Central Line = 10 mL/lumen For viscous solutions (i.e. blood components, parenteral nutrition, contrast media, or after obtaining blood sample) use: Peripheral IV = 10 mL Midline or Central Line = 20 mL/lumen No Frequency Medication Order 05/06/2023 05/07/2023 05/08/2023 HYDROmorphone (Dilaudid) 1 MG/ML injection - Pyxis ADS Override Pull (COMPLETED) Starting on Sun05/08/23 at 1448, For 1 dose, Vijaya Laughlin: cabinet override 1511 (Given - Provid er: Federica Ray RN) Linked Groups Order Group 1: labetalol (Normodyne,Trandate) injection 5 mgJump to med 5 mg, IntraVENous, Every 10 min PRN, high blood pressure, for SBP greater than 160 mmHg for 2 consecutive measurements taken from different sites., Starting on Sun05/08/23 at 1429, For 2 doses, Recovery (only)
PRN for SBP >160 for 2 consecutive measurements, if HR is 60 or greater. If beta leonardo is contraindicated (HR less than 60, heart block, COPD or asthma) use hydralazine IV order.
Or hydrALAZINE (Apresoline) injection 5 mgJump to med 5 mg, IntraVENous, Every 15 min PRN, high blood pressure, for SBP greater than 160 mmHg for 2 consecutive measurements taken from different sites, Starting on Sun05/08/23 at 1429, For 2 doses, Recovery (only)
PRN for SBP > 160 for 2 consecutive measurements, and if one of the following conditions is met: 1) If IV labetolol is ineffective. 2) If HR is under 60. 3) If patient has heart block, COPD or asthma. If both labetalol and hydralazine ineffective, notify anesthesia provider.
Scheduled Medication Order 05/20/2023 05/21/2023 05/22/2023 acetaminophen (Tylenol) tablet 1,000 mg (COMPLETED) 1,000 mg, Oral, Once, On Sun05/22/23 at 0930, For 1 dose, Preprocedure, Maximum dose of acetaminophen is 4000 mg from all sources in 24 hours. Do not administer if patient has taken tylenol <4 hours earlier. Do not give if contraindicated ie. patient has active liver disease or cirrhosis. 926 (Given - Provid er: Anette Villalobos RN) celecoxib (CeleBREX) capsule 200 mg (COMPLETED) 200 mg, Oral, Once, On Sun05/22/23 at 0930, For 1 dose, Preprocedure 929 (Given - Provid er: Anette Villalobos RN - Comment: barcode unreadable) clindamycin in NS (Cleocin) IVPB 900 mg (COMPLETED) 900 mg, IntraVENous, at 50 mL/hr, Administer over 60 Minutes, Once, On Sun05/22/23 at 0900, For 1 dose, Preprocedure, Administer within 1 hour prior to Incision., Suspected Indication (Select all that apply): Surgical Prophylaxis 1206 (Given - Provid er: Keanu Ace APRN - TELEPHONE MAINTAINER) famotidine (Pepcid) tablet 20 mg (COMPLETED) 20 mg, Oral, Once, On Sun05/22/23 at 0930, For 1 dose, Preprocedure 926 (Given - Provid er: Anette Villalobos RN) gabapentin (Neurontin) capsule 100 mg 100 mg, Oral, Once, On Sun05/22/23 at 0930, For 1 dose, Preprocedure, For Age >69 or Low GFR. 929 (Not Given - Pr ovider: Anette Villalobos RN - Reason: Other - Comment: pt took at home) HYDROmorphone (Dilaudid) injection 0.5 mg (COMPLETED) 0.5 mg, IntraVENous, Once, On Sun05/22/23 at 1345, For 1 dose, Recovery (only), Phase I and Phase II- Initial therapy for severe pain (7-10). Restricted to a 90 minute time frame starting when the patient can verbally state their pain score. If after 2 doses the pain score does not decrease by more than one point, then call the provider. If oral meds are utilized, do not return to initial therapy medications. 1341 (Given - Provid er: Sona Mcclain RN) sodium chloride 0.9% (NS) flush 10 mL 10 mL, IntraVENous, Every 12 hours scheduled (2 times per day), First dose on Sun05/22/23 at 0900, Preprocedure 0900 (Canceled Entry - Provider: Automatic Discharge Provider - Comment: Automatically canceled at discontinue of medication order) sodium chloride 0.9% (NS) flush 10 mL 10 mL, IntraVENous, Every 12 hours scheduled (2 times per day), First dose on Sun05/22/23 at 2100, Recovery (only) Continuous Medication Order 05/20/2023 05/21/2023 05/22/2023 lactated Ringer's (LR) infusion 50 mL/hr, IntraVENous, Continuous, Starting on Sun05/22/23 at 0930, Preprocedure, Upon admission to sameday - please start iv if patient does not have iv access. Use 500ml NS for patients on dialysis. 0924 (New Bag - Prov ider: Anette Villalobos RN)1152 (Continued by Anesthesia - Provider: Keanu Ace APRN - MILDRED)1306 (Stopped - Provider: MITCH Steele CRNA) lactated ringers infusion 125 mL/hr, IntraVENous, Continuous, Starting on Sun05/22/23 at 1330, Recovery (only) 1330 (Canceled Entry - Provider: Automatic Discharge Provider - Comment: Automatically canceled at discontinue of medication order) PRN Medication Order 05/20/2023 05/21/2023 05/22/2023 diphenhydrAMINE (BENADryl) injection 12.5 mg 12.5 mg, IntraVENous, Once PRN, itching, Starting on Sun05/22/23 at 1318, For 1 dose, Recovery (only) fentaNYL (Sublimaze) injection 25 mcg 25 mcg, IntraVENous, Every 5 min PRN, moderate pain (4-6), Starting on Sun05/22/23 at 1318, For 3 doses, Recovery (only), Phase I and Phase II- Initial therapy for moderate pain (4-6). Restricted to a 90 minute time frame starting when the patient can verbally state their pain score. If after 2 doses the pain score does not decrease by more than one point, then call the provider. If oral meds are utilized, do not return to initial therapy medications. fentaNYL (Sublimaze) injection 50 mcg 50 mcg, IntraVENous, Every 5 min PRN, severe pain (7-10), Starting on Sun05/22/23 at 1318, For 3 doses, Recovery (only), Phase I and Phase II- Initial therapy for severe pain (7-10). Restricted to a 90 minute time frame starting when the patient can verbally state their pain score. If after 2 doses the pain score does not decrease by more than one point, then call the provider. If oral meds are utilized, do not return to initial therapy medications. 1320 (Given - Provid er: Sona Mcclain RN) hydrALAZINE (Apresoline) injection 5 mg(Linked Group 1) 5 mg, IntraVENous, Every 15 min PRN, high blood pressure, for SBP greater than 160 mmHg for 2 consecutive measurements taken from different sites, Starting on Sun05/22/23 at 1318, For 2 doses, Recovery (only), PRN for SBP > 160 for 2 consecutive measurements, and if one of the following conditions is met: 1) If IV labetolol is ineffective. 2) If HR is under 60. 3) If patient has heart block, COPD or asthma. If both labetalol and hydralazine ineffective, notify anesthesia provider. labetalol (Normodyne,Trandate) injection 5 mg(Linked Group 1) 5 mg, IntraVENous, Every 10 min PRN, high blood pressure, for SBP greater than 160 mmHg for 2 consecutive measurements taken from different sites., Starting on Sun05/22/23 at 1318, For 2 doses, Recovery (only), PRN for SBP >160 for 2 consecutive measurements, if HR is 60 or greater. If beta leonardo is contraindicated (HR less than 60, heart block, COPD or asthma) use hydralazine IV order. meperidine (Demerol) injection 12.5 mg 12.5 mg, IntraVENous, Every 5 min PRN, shivering, Starting on Sun05/22/23 at 1318, For 4 doses, Recovery (only), May give every 5 minutes to max of 50mg. ondansetron (Zofran) injection 4 mg 4 mg, IntraVENous, Once PRN, nausea, Starting on Sun05/22/23 at 1318, For 1 dose, Recovery (only), Initial antiemetic therapy. oxyCODONE (Roxicodone) immediate release tablet 10 mg (COMPLETED) 10 mg, Oral, PRN, severe pain (7-10), Starting on Sun05/22/23 at 1318, For 1 dose, Recovery (only), PHASE II 8 (Given - Provid er: Vijaya Laughlin RN) sodium chloride 0.9 % bolus 500 mL 500 mL, IntraVENous, at 1,000 mL/hr, Administer over 0.5 Hours, PRN, Anti-nausea, Starting on Sun05/22/23 at 1318, Recovery (only), Indications: Anti-nausea sodium chloride 0.9 % infusion 5-250 mL/hr, IntraVENous, PRN, if patient receiving piggyback infusions and maintenance fluids are not ordered OR KVO fluids to protect IV site / prevent frequent line interruptions/ long duration, Starting on Sun05/22/23 at 0856, Preprocedure, For piggyback infusion, administer at same rate as piggyback for a total of 25 mL. Enter 25 mL into dose field and piggyback rate into rate field of order. If piggyback is infusing at a rate less than 100 mL/hr, enter 25 mL into dose field and 100 mL/hr into rate field of order. For KVO fluids, enter rate of 20 mL/hr or less into rate field of order. sodium chloride 0.9 % infusion 5-250 mL/hr, IntraVENous, PRN, if patient receiving piggyback infusions and maintenance fluids are not ordered OR KVO fluids to protect IV site / prevent frequent line interruptions/ long duration, Starting on Sun05/22/23 at 1318, Recovery (only), For piggyback infusion, administer at same rate as piggyback for a total of 25 mL. Enter 25 mL into dose field and piggyback rate into rate field of order. If piggyback is infusing at a rate less than 100 mL/hr, enter 25 mL into dose field and 100 mL/hr into rate field of order. For KVO fluids, enter rate of 20 mL/hr or less into rate field of order. sodium chloride 0.9 % irrigation solution (CANCELED) As needed, Starting on Sun05/22/23 at 1228, Intraprocedure 1228 (Given - Provid er: Rusty Bassett MD) sodium chloride 0.9% (NS) flush 10 mL 10 mL, IntraVENous, PRN, line care, Starting on Sun05/22/23 at 0856, Preprocedure, After every IV line use sodium chloride 0.9% (NS) flush 10 mL 10 mL, IntraVENous, PRN, line care, Starting on Sun05/22/23 at 1318, Recovery (only), After every IV line use thrombin spray (CANCELED) As needed, Starting on Sun05/22/23 at 1235, Intraprocedure 1235 (Given - Provid er: Rusty Bassett MD - Comment: LEFT LEG) Linked Groups Order Group 1: labetalol (Normodyne,Trandate) injection 5 mgJump to med 5 mg, IntraVENous, Every 10 min PRN, high blood pressure, for SBP greater than 160 mmHg for 2 consecutive measurements taken from different sites., Starting on Sun05/22/23 at 1318, For 2 doses, Recovery (only)
PRN for SBP >160 for 2 consecutive measurements, if HR is 60 or greater. If beta leonardo is contraindicated (HR less than 60, heart block, COPD or asthma) use hydralazine IV order.
Or hydrALAZINE (Apresoline) injection 5 mgJump to med 5 mg, IntraVENous, Every 15 min PRN, high blood pressure, for SBP greater than 160 mmHg for 2 consecutive measurements taken from different sites, Starting on Sun05/22/23 at 1318, For 2 doses, Recovery (only)
PRN for SBP > 160 for 2 consecutive measurements, and if one of the following conditions is met: 1) If IV labetolol is ineffective. 2) If HR is under 60. 3) If patient has heart block, COPD or asthma. If both labetalol and hydralazine ineffective, notify anesthesia provider.
Scheduled Medication Order 06/06/2023 06/07/2023 06/08/2023 acetaminophen (Tylenol) tablet 650 mg 650 mg, Oral, Every 4 hours, First dose on Sun05/29/23 at 1445, Maximum dose of acetaminophen is 4000 mg from all sources in 24 hours. 0204 (Given - Provider: David Brown RN)0515 (Given - Provider: David Brown RN)1135 (Given - Provider: Payton Zarate, RONAL)1500 (Not Given - Provider: Payton Zarate RN - Reason: Patient/family refused)1720 (Given - Provider: Payton Zarate RN)2101 (Given - Provider: Kevin Martinez RN) 0245 (Not Given - Provider: Jon South RN - Reason: Other - Comment: sleeping)0529 (Given - Provider: Jon South RN)1015 (Given - Provider: Nidhi Araya RN)1425 (Given - Provider: Nidhi Araya RN)1838 (Given - Provider: Nidhi Araya RN)202 (Given - Provider: Jon South RN) 0245 (Not Given - Provider: Jon South RN - Reason: Other)0511 (Given - Provider: Jon South RN)1020 (Given - Provider: Nidhi Araya RN)1457 (Given - Provider: Fly Schultz RN) amitriptyline (Elavil) tablet 100 mg 100 mg, Oral, Nightly, First dose on Sun05/29/23 at 2100 2059 (Given - Provider: Kevin Martinez, RONAL) 2023 (Given - Provider: Jon South RN) citalopram (CeleXA) tablet 20 mg 20 mg, Oral, Daily, First dose on Sun05/29/23 at 1800 0800 (Given - Provider: Payton Zarate RN) 0845 (Given - Provider: Nidhi Araya RN) 0845 (Given - Provider: Nidhi Araya RN) docusate sodium (Colace) capsule 100 mg 100 mg, Oral, 2 times daily, First dose on Sun05/29/23 at 2100, Do not crush or break. 0830 (Not Given - Provider: Payton Zarate RN - Reason: Patient/family refused)2099 (Given - Provider: Kevin Martinez RN) 08 (Given - Provider: Nidhi Araya RN)2023 (Given - Provider: Jon South RN) 08 (Given - Provider: Nidhi Araya RN) enoxaparin (Lovenox) syringe 30 mg 30 mg, SubCUTAneous, Every 12 hours scheduled (2 times per day), First dose on Sun05/29/23 at 2100, Indication of Use: Prophylaxis-DVT/PE 09 (Dose Auto Held - Provider: John Moses MD)2099 (Dose Auto Held - Provider: John Moses MD) 0722 (Unheld by provider - Provider: Joanna Leslie PA-C)09 (Not Given - Provider: Nidhi Araya RN - Reason: Other - Comment: no anticoagulants ordered)2099 (Given - Provider: Jon South RN) 09 (Not Given - Provider: Nidhi Araya RN - Reason: See Provider Order) ertapenem (INVanz) 1,000 mg in sodium chloride 0.9 % 50 mL IVPB Mini-Bag Plus 1,000 mg, IntraVENous, at 100 mL/hr, Administer over 30 Minutes, Every 24 hours, First dose on Sun06/06/23 at 2000, Mini-Bag Plus bag, 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 2099 (New Bag - Provider: Kevin Martinez RN)2129 (Stopped - Provider: Jon South RN) 2028 (New Bag - Provider: Jon South RN)2058 (Stopped - Provider: Jon South RN) gabapentin (Neurontin) capsule 300 mg 300 mg, Oral, 2 times daily, First dose on Sun05/29/23 at 1445 0800 (Given - Provider: Payton Zarate RN)2099 (Given - Provider: Kevin Martinez RN) 08 (Given - Provider: Nidhi Araya RN)2023 (Given - Provider: Jon South RN) 08 (Given - Provider: Nidhi Araya RN) Lidocaine 4 % patch 1 patch 1 patch, Topical, Administer over 12 Hours, Daily, First dose on Sun05/29/23 at 1445, Apply patch to affected area. Patch may remain in place for up to 12 hours in any 24 hour period. 0830 (Not Given - Provider: Payton Zarate RN - Reason: Patient/family refused) 0900 (Not Given - Provider: Nidhi Araya RN - Reason: Patient/family refused) 0845 (Not Given - Provider: Nidhi Araya RN - Reason: Patient/family refused) mometasone-formoterol (Dulera 200) 200-5 MCG/ACT inhaler 2 puff 2 puff, Inhalation, 2 times daily, First dose on Sun05/29/23 at 2000, Rinse mouth with water after use to reduce aftertaste and incidence of candidiasis. Do not swallow. 0800 (Given - Provider: Payton Zarate RN)2058 (Given - Provider: Kevin Martinez RN) 0846 (Given - Provider: Nidhi Araya RN)2024 (Given - Provider: Jon South, RONAL) 1104 (Given - Provider: Nidhi Araya RN - Comment: pt with PT) montelukast (Singulair) tablet 10 mg 10 mg, Oral, Daily, First dose on Sun05/29/23 at 1800 0800 (Given - Provider: Payton Zarate RN) 0846 (Given - Provider: Nidhi Aryaa RN) 0845 (Given - Provider: Nidhi Araya RN) pantoprazole (ProtoNix) EC tablet 40 mg 40 mg, Oral, Daily before breakfast, First dose on Sun05/30/23 at 0700, Substituted for omeprazole (Prilosec). Do not crush, chew, or split. 0516 (Given - Provider: David Brown RN) 0529 (Given - Provider: Jon South, RONAL) 0511 (Given - Provider: Jon South RN) sodium chloride 0.9% (NS) flush 10 mL 10 mL, IntraCATHeter, Every 12 hours, First dose on Sun06/05/23 at 1230, Administer to each lumen, regardless of whether or not fluids are infusing. Line Care. Use 10 mL or larger syringe. 0122 (Given - Provider: David Brown RN)1230 (Given - Provider: Payton Zarate, RONAL)2100 (Given - Provider: Kevin Martinez RN) 003 (Given - Provider: Jon South, RONAL)1230 (Not Given - Provider: Fly Schultz RN - Reason: IV Fluids Infusing) 003 (Given - Provider: Jon South, RN)123 (Given - Provider: Nidhi Araya RN) vancomycin (Vancocin) 1500 mg in NS 250 mL IVPB (compounded premix) (CANCELED) 1,500 mg, IntraVENous, at 125 mL/hr, Administer over 120 Minutes, Every 12 hours, First dose (after last reorder) on Sun06/01/23 at 1800, premix bag, Dosing of this medication varies based on severity of illness. Does this patient have sepsis or concern for sepsis (probable or documented infection plus systemic manifestations of infection)? 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 Use 500ml NS for patients on dialysis. 1823 (New Bag - Provider: Payton Zarate, RONAL) PRN Medication Order 06/06/2023 06/07/2023 06/08/2023 albuterol 108 (90 Base) MCG/ACT inhaler 2 puff 2 puff, Inhalation, Every 6 hours PRN, wheezing, Starting on Sun05/30/23 at 0949 budesonide (Pulmicort) 0.5 MG/2ML nebulizer solution 0.25 mg 0.25 mg, Nebulization, 2 times daily PRN, as prescribed, Starting on Sun05/29/23 at 1836, NOTE DOSE : use 1/2 of the 0.5 mg vial Rinse mouth with water after use to reduce aftertaste and incidence of candidiasis. Do not swallow. diphenhydrAMINE (BENADryl) injection 25 mg 25 mg, IntraVENous, 2 times daily PRN, itching, 60 min before Vanc dose, Starting on Sun05/30/23 at 1720 1414 (Given - Provider: Payton Zarate RN) HYDROmorphone (Dilaudid) injection 0.25 mg(Linked Group 1) 0.25 mg, IntraVENous, Every 4 hours PRN, moderate pain (4-6), Starting on Sun05/29/23 at 1441, If oral and IV narcotics ordered, use oral first and only use IV if oral is ineffective or cannot take oral. Do Not give oral and IV within 1 hour of each other unless specifically ordered. 0327 (See Alternative - Provider: David Brown RN)0757 (See Alternative - Provider: Payton Zarate RN)1402 (See Alternative - Provider: Payton Zarate RN)1819 (See Alternative - Provider: Payton Zarate RN)2336 (See Alternative - Provider: Jon South RN) 0533 (See Alternative - Provider: Jon South RN)1015 (See Alternative - Provider: Nidhi Araya RN)1425 (See Alternative - Provider: Nidhi Araya RN)1838 (See Alternative - Provider: Nidhi Araya RN) 0842 (See Alternative - Provider: Nidhi Araya RN)1332 (See Alternative - Provider: Nidhi Araya RN) HYDROmorphone (Dilaudid) injection 0.5 mg(Linked Group 1) 0.5 mg, IntraVENous, Every 4 hours PRN, severe pain (7-10), Starting on Sun05/29/23 at 1441, If oral and IV narcotics ordered, use oral first and only use IV if oral is ineffective or cannot take oral. Do Not give oral and IV within 1 hour of each other unless specifically ordered. 0327 (Given - Provider: David Brown RN)0757 (Given - Provider: Payton Zarate RN)1402 (Given - Provider: Payton Zarate RN)1819 (Given - Provider: Payton Zarate RN)2336 (Given - Provider: Jon South RN) 0533 (Given - Provider: Jon South RN)1015 (Given - Provider: Nidhi Araya RN)1425 (Given - Provider: Nidhi Araya RN)1838 (Given - Provider: Nidhi Araya RN) 0842 (Given - Provider: Nidhi Araya RN)1332 (Given - Provider: Nidhi Araya RN) LORazepam (Ativan) tablet 0.5 mg 0.5 mg, Oral, Every 8 hours PRN, anxiety, Starting on Sun05/29/23 at 1744 1525 (Given - Provider: Payton Zarate RN)2336 (Given - Provider: Jon South RN) 1022 (Given - Provider: Nidhi Araya RN) 1103 (Given - Provider: Nidhi Araya RN) methocarbamol (Robaxin) tablet 750 mg 750 mg, Oral, Every 8 hours PRN, muscle spasms, Starting on Sun05/29/23 at 1441 0757 (Given - Provider: Payton Zarate RN)1720 (Given - Provider: Payton Zarate RN) 1021 (Given - Provider: Nidhi Araya RN) naloxone (Narcan) 0.4 mg in 0.9% sodium chloride 10 mL syringe IntraVENous, PRN, opioid reversal, Starting on Sun05/29/23 at 1441, PRN if respiratory rate is less than 6/min and patient is difficult to arouse then notify physician STAT. Mix 9 mL of sodium chloride 0.9% with 0.4 mg (1 mL) of naloxone (NARCAN) in 10 mL syringe. (Note: dilution is 0.04 mg/mL) Give 0.08 mg (2 mL of special dilution), slow IV push, repeat up to 0.4 mg (10 mL) or until patient is responsive to physical stimulation and respiratory rate is equal to or greater than 6 breaths/min. Continue to observe, if no response within 3 minutes of administration of 0.4 mg (10 mL) total, repeat dose (0.4 mg as administered previously). ondansetron (Zofran) injection 4 mg(Linked Group 2) 4 mg, IntraVENous, Every 6 hours PRN, nausea, vomiting, Starting on Sun05/29/23 at 1248, 1st Line. Give IV if patient is unable to take orally. If inadequate response within 60 minutes, proceed to next-line agent or contact provider if no further options ordered. ondansetron ODT (Zofran-ODT) disintegrating tablet 4 mg(Linked Group 2) 4 mg, Oral, Every 8 hours PRN, nausea, vomiting, Starting on Sun05/29/23 at 1248, 1st Line. If inadequate response within 60 minutes, proceed to next-line agent or contact provider if no further options ordered. Patient should allow tablet to dissolve on tongue. Do not remove from blister pack until just before administering. oxyCODONE (Roxicodone) immediate release tablet 10 mg(Linked Group 3) 10 mg, Oral, Every 4 hours PRN, severe pain (7-10), Starting on Sun05/29/23 at 1441 0204 (Given - Provider: David Brown RN)1136 (Given - Provider: Payton Zarate RN)1719 (Given - Provider: Payton Zarate RN) 0239 (Given - Provider: Jon South RN)0846 (Given - Provider: Nidhi Araya RN)1737 (Given - Provider: Fly Schultz RN) 1019 (Given - Provider: Nidhi Araya RN)1457 (Given - Provider: Fly Schultz RN) oxyCODONE (Roxicodone) immediate release tablet 5 mg(Linked Group 3) 5 mg, Oral, Every 4 hours PRN, moderate pain (4-6), Starting on Sun05/29/23 at 1441 0204 (See Alternative - Provider: David Brown RN)1136 (See Alternative - Provider: Payton Zarate RN)1719 (See Alternative - Provider: Payton Zarate RN) 0239 (See Alternative - Provider: Jon South RN)0846 (See Alternative - Provider: Nidhi Araya RN)1737 (See Alternative - Provider: Fly Schultz RN) 1019 (See Alternative - Provider: Nidhi Araya RN)1457 (See Alternative - Provider: Fly Schultz RN) polyethylene glycol (PEG) 3350 (Miralax) packet 17 g 17 g, Oral, Daily PRN, constipation, Starting on Sun05/29/23 at 1248, 1st line for treatment of constipation - give scheduled if no bowel movement in past 24 hours. sodium chloride 0.9% (NS) flush 10 mL 10 mL, IntraCATHeter, PRN, line care, before blood draws, before and after infusion or medication administration, Starting on Sun06/05/23 at 1222, Use 10 mL or larger syringe. Linked Groups Order Group 1: HYDROmorphone (Dilaudid) injection 0.25 mgJump to med 0.25 mg, IntraVENous, Every 4 hours PRN, moderate pain (4-6), Starting on Sun05/29/23 at 1441
If oral and IV narcotics ordered, use oral first and only use IV if oral is ineffective or cannot take oral. Do Not give oral and IV within 1 hour of each other unless specifically ordered.
Or HYDROmorphone (Dilaudid) injection 0.5 mgJump to med 0.5 mg, IntraVENous, Every 4 hours PRN, severe pain (7-10), Starting on Sun05/29/23 at 1441
If oral and IV narcotics ordered, use oral first and only use IV if oral is ineffective or cannot take oral. Do Not give oral and IV within 1 hour of each other unless specifically ordered.
Group 2: ondansetron ODT (Zofran-ODT) disintegrating tablet 4 mgJump to med 4 mg, Oral, Every 8 hours PRN, nausea, vomiting, Starting on Sun05/29/23 at 1248
1st Line. If inadequate response within 60 minutes, proceed to next-line agent or contact provider if no further options ordered. Patient should allow tablet to dissolve on tongue. Do not remove from blister pack until just before administering.
Or ondansetron (Zofran) injection 4 mgJump to med 4 mg, IntraVENous, Every 6 hours PRN, nausea, vomiting, Starting on 8/29/23 at 1248
1st Line. Give IV if patient is unable to take orally. If inadequate response within 60 minutes, proceed to next-line agent or contact provider if no further options ordered.
Group 3: oxyCODONE (Roxicodone) immediate release tablet 5 mgJump to med 5 mg, Oral, Every 4 hours PRN, moderate pain (4-6), Starting on Sun05/29/23 at 1441 Or oxyCODONE (Roxicodone) immediate release tablet 10 mgJump to med 10 mg, Oral, Every 4 hours PRN, severe pain (7-10), Starting on Sun05/29/23 at 1441 Scheduled Medication Order 10/31/2022 11/01/2022 11/02/2022 acetaminophen (Tylenol) tablet 650 mg 650 mg, Oral, Every 4 hours, First dose on Sun10/31/22 at 2230, Maximum dose of acetaminophen is 4000 mg from all sources in 24 hours. 2230 (Not Given - Provider: Tg Mares RN - Reason: Patient/family refused) 0230 (Not Given - Provider: Tg Mares RN - Reason: Patient/family refused)0540 (Given - Provider: Tg Mares RN - Comment: spoke with pharmacy. okay to give)1030 (Not Given - Provider: Bozena Sow LPN - Reason: Patient/family refused)1430 (Not Given - Provider: Bozena Sow LPN - Reason: Other)1835 (Given - Provider: Bozena Sow LPN)2140 (Given - Provider: Norma Weber RN) 0204 (Given - Provider: Norma Weber RN)0531 (Given - Provider: Norma Weber RN)1134 (Given - Provider: Bozena Sow LPN)1430 (Canceled Entry - Provider: Automatic Discharge Provider - Comment: Automatically canceled at discontinue of medication order) amitriptyline (Elavil) tablet 100 mg 100 mg, Oral, Nightly, First dose on Sun10/31/22 at 2230, Phase II/On Unit 2301 (Given - Provider: Tg Mares RN) 2008 (Given - Provider: Norma Weber RN) apixaban (Eliquis) tablet 5 mg 5 mg, Oral, 2 times daily, First dose on Sun11/01/22 at 2100, Anticoagulant 2008 (Given - Provider: Norma Weber RN) 0835 (Given - Provider: Bozena Sow LPN) ceFAZolin in sodium chloride 0.9% (Ancef) IVPB 3,000 mg (COMPLETED) 3,000 mg, IntraVENous, Administer over 30 Minutes, Every 8 hours, First dose on Sun11/01/22 at 0200, For 3 doses, Phase II/On Unit, premix bag, Suspected Indication (Select all that apply): Surgical Prophylaxis 0218 (New Bag - Provider: Tg Mares RN)0248 (Stopped - Provider: Tg Mares RN)1028 (New Bag - Provider: Bozena Sow LPN)1058 (Stopped - Provider: Bozena Sow LPN)1835 (New Bag - Provider: Bozena Sow LPN)1905 (Stopped - Provider: Norma Weber RN) citalopram (CeleXA) tablet 40 mg 40 mg, Oral, Daily, First dose on Sun11/01/22 at 0900, Phase II/On Unit 0844 (Given - Provider: Bozena Sow LPN) 0835 (Given - Provider: Bozena Sow LPN) gabapentin (Neurontin) capsule 300 mg 300 mg, Oral, Nightly, First dose on Sun10/31/22 at 2230 2230 (Not Given - Provider: Tg Mares RN - Reason: Patient/family refused) 2008 (Given - Provider: Norma Weber RN) Lidocaine 4 % patch 1 patch 1 patch, Topical, Administer over 12 Hours, Daily, First dose on Sun11/01/22 at 0900, Apply patch to affected area. Patch may remain in place for up to 12 hours in any 24 hour period. 0844 (Medication Applied - Provider: Bozena Sow LPN)2044 (Medication Removed - Provider: Norma Weber RN) 0836 (Medication Applied - Provider: Bozena Sow LPN)1520 (Due: Medication Removed - Provider: Automatic Discharge Provider - Comment: Time automatically adjusted from order being discontinued) mometasone-formoterol (Dulera 100) 100-5 MCG/ACT inhaler 2 puff 2 puff, Inhalation, 2 times daily RT, First dose on Sun10/31/22 at 2230, Phase II/On Unit, Rinse mouth with water after use to reduce aftertaste and incidence of candidiasis. Do not swallow. 2230 (Not Given - Provider: Tg Mares RN - Reason: Patient/family refused) 1029 (Given - Provider: Bozena Sow LPN)2008 (Given - Provider: Norma Weber RN) 0836 (Given - Provider: Bozena Sow LPN) Continuous Medication Order 10/31/2022 11/01/2022 11/02/2022 sodium chloride 0.9 % infusion 50 mL/hr, IntraVENous, Administer over 10 Minutes, Continuous, Starting on Sun10/30/22 at 1920, For use in priming line prior to transfusion (prime via gravity) and flush line post transfusion ONLY. Discontinue once line has been cleared of remaining blood product. 1709 (Restarted - Provider: Mickey Cespedes APRN - TELEPHONE MAINTAINER)1928 (Stopped - Provider: MITCH Story CRNA) PRN Medication Order 10/31/2022 11/01/2022 11/02/2022 acetaminophen (Tylenol) tablet 650 mg (CANCELED) 650 mg, Oral, Every 6 hours PRN, mild pain (1-3), Starting on Sun10/31/22 at 0247, Maximum dose of acetaminophen is 4000 mg from all sources in 24 hours. 0307 (Given - Provider: Chelsea Martinez RN)1517 (MAR Hold - Provider: Automatic Transfer Provider - Reason: Patient not available)2156 (NOV Unhold - Provider: Siobhan Esquivel APRN - TRIM STENCIL MAKER) albuterol (2.5 MG/3ML) 0.083% nebulizer solution 2.5 mg 2.5 mg, Nebulization, 4 times daily PRN, wheezing, Starting on Sun11/01/22 at 1352, Phase II/On Unit HYDROmorphone (Dilaudid) injection 0.25 mg(Linked Group 1) 0.25 mg, IntraVENous, Every 4 hours PRN, moderate pain (4-6), Starting on Sun10/31/22 at 2224, If oral and IV narcotics ordered, use oral first and only use IV if oral is ineffective or cannot take oral. Do Not give oral and IV within 1 hour of each other unless specifically ordered. 003 (See Alternative - Provider: Tg Mares RN)09 (See Alternative - Provider: Katie Vallejo, RONAL) 020 (See Alternative - Provider: Norma Weber, RN) HYDROmorphone (Dilaudid) injection 0.5 mg (CANCELED) 0.5 mg, IntraVENous, Every 5 min PRN, severe pain (7-10), Starting on Sun10/31/22 at 1943, For 4 doses, Recovery (only), Phase I and Phase II- Initial therapy for severe pain (7-10). Restricted to a 90 minute time frame starting when the patient can verbally state their pain score. If after 2 doses the pain score does not decrease by more than one point, then call the provider. If oral meds are utilized, do not return to initial therapy medications. 2036 (Given - Provider: Jaz Martin RN) HYDROmorphone (Dilaudid) injection 0.5 mg(Linked Group 1) 0.5 mg, IntraVENous, Every 4 hours PRN, severe pain (7-10), Starting on Sun10/31/22 at 2224, If oral and IV narcotics ordered, use oral first and only use IV if oral is ineffective or cannot take oral. Do Not give oral and IV within 1 hour of each other unless specifically ordered. 37 (Given - Provider: Tg Mares RN)906 (Given - Provider: Katie Vallejo, RONAL) 020 (Given - Provider: Norma Weber, RONAL) LORazepam (Ativan) injection 0.5 mg (COMPLETED) 0.5 mg, IntraVENous, Once PRN, for anxiety or muscle spasm., Starting on Sun10/31/22 at 1943, For 1 dose, Recovery (only), For IV doses dilute dose with 1ml NS. 2049 (Given - Provider: Jaz Martin RN) LORazepam (Ativan) tablet 0.5 mg 0.5 mg, Oral, Every 6 hours PRN, anxiety, Starting on Sun10/31/22 at 0912 1021 (Given - Provider: Robi Trevino RN)1517 (NOV Hold - Provider: Automatic Transfer Provider - Reason: Patient not available)2222 (NOV Unhold - Provider: Automatic Transfer Provider) 0835 (Given - Provider: Bozena Sow LPN) methocarbamol (Robaxin) tablet 1,000 mg 1,000 mg, Oral, Every 8 hours PRN, muscle spasms, Starting on Sun10/31/22 at 2224 0844 (Given - Provider: Bozena Sow LPN)1835 (Given - Provider: Bozena Sow LPN) 0333 (Given - Provider: Norma Weber RN)1204 (Given - Provider: Bozena Sow LPN) naloxone (Narcan) 0.4 mg in 0.9% sodium chloride 10 mL syringe IntraVENous, PRN, opioid reversal, Starting on Sun10/31/22 at 2224, PRN if respiratory rate is less than 6/min and patient is difficult to arouse then notify physician STAT. Mix 9 mL of sodium chloride 0.9% with 0.4 mg (1 mL) of naloxone (NARCAN) in 10 mL syringe. (Note: dilution is 0.04 mg/mL) Give 0.08 mg (2 mL of special dilution), slow IV push, repeat up to 0.4 mg (10 mL) or until patient is responsive to physical stimulation and respiratory rate is equal to or greater than 6 breaths/min. Continue to observe, if no response within 3 minutes of administration of 0.4 mg (10 mL) total, repeat dose (0.4 mg as administered previously). oxyCODONE (Roxicodone) immediate release tablet 10 mg(Linked Group 2) 10 mg, Oral, Every 4 hours PRN, severe pain (7-10), Starting on Sun10/31/22 at 2224 2310 (Given - Provider: Tg Mares RN) 0643 (Given - Provider: Tg Mares RN)1217 (Given - Provider: Bozena Sow LPN)1835 (Given - Provider: Bozena Sow LPN) 0109 (Given - Provider: Norma Weber RN)0835 (Given - Provider: Bozena Sow LPN)1314 (Given - Provider: Bozena Sow LPN) oxyCODONE (Roxicodone) immediate release tablet 5 mg(Linked Group 2) 5 mg, Oral, Every 4 hours PRN, moderate pain (4-6), Starting on Sun10/31/22 at 2224 2310 (See Alternative - Provider: Tg Mares RN) 0643 (See Alternative - Provider: Tg Mares RN)1217 (See Alternative - Provider: Bozena Sow LPN)1835 (See Alternative - Provider: Bozena Sow LPN) 0109 (See Alternative - Provider: Norma Weber RN)0835 (See Alternative - Provider: Bozena Sow LPN)1314 (See Alternative - Provider: Bozena Sow LPN) sodium chloride 0.9 % irrigation solution (CANCELED) As needed, Starting on Sun10/31/22 at 1743, Intraprocedure 1743 (Given - Provider: Rusty Bassett MD) Linked Groups Order Group 1: HYDROmorphone (Dilaudid) injection 0.25 mgJump to med 0.25 mg, IntraVENous, Every 4 hours PRN, moderate pain (4-6), Starting on Sun10/31/22 at 2224
If oral and IV narcotics ordered, use oral first and only use IV if oral is ineffective or cannot take oral. Do Not give oral and IV within 1 hour of each other unless specifically ordered.
Or HYDROmorphone (Dilaudid) injection 0.5 mgJump to med 0.5 mg, IntraVENous, Every 4 hours PRN, severe pain (7-10), Starting on Sun10/31/22 at 2224
If oral and IV narcotics ordered, use oral first and only use IV if oral is ineffective or cannot take oral. Do Not give oral and IV within 1 hour of each other unless specifically ordered.
Group 2: oxyCODONE (Roxicodone) immediate release tablet 5 mgJump to med 5 mg, Oral, Every 4 hours PRN, moderate pain (4-6), Starting on Sun10/31/22 at 2224 Or oxyCODONE (Roxicodone) immediate release tablet 10 mgJump to med 10 mg, Oral, Every 4 hours PRN, severe pain (7-10), Starting on Sun10/31/22 at 2224 Scheduled Medication Order 11/25/2022 11/26/2022 11/27/2022 acetaminophen (Tylenol) tablet 1,000 mg 1,000 mg, Oral, Every 8 hours, First dose on Sun11/17/22 at 1100, Maximum dose of acetaminophen is 4000 mg from all sources in 24 hours. 0539 (Given - Provider: Remy Vera RN)1432 (Given - Provider: Mamta Cooley)2031 (Given - Provider: Simba Ham RN) 0439 (Given - Provider: Simba Ham RN)1400 (Not Given - Provider: Bozena Sow LPN - Reason: Patient/family refused)2006 (Given - Provider: Simba Ham RN) 0530 (Given - Provider: Simba Ham RN)1254 (Given - Provider: Evgeny Olea, RONAL) amitriptyline (Elavil) tablet 25 mg 25 mg, Oral, Nightly, First dose on Sun11/10/22 at 2100 2028 (Given - Provider: Simba Ham RN) 2006 (Given - Provider: Simba Ham RN) 2099 (Canceled Entry - Provider: Automatic Discharge Provider - Comment: Automatically canceled at discontinue of medication order) apixaban (Eliquis) tablet 5 mg 5 mg, Oral, 2 times daily, First dose (after last modification) on Sun11/23/22 at 1945, Anticoagulant 0925 (Given - Provider: Mamta Cooley)2028 (Given - Provider: Simba Ham RN) 0923 (Given - Provider: Bozena Sow LPN)2006 (Given - Provider: Simba Ham RN) 1027 (Given - Provider: Evgeny Olea RN)2099 (Canceled Entry - Provider: Automatic Discharge Provider - Comment: Automatically canceled at discontinue of medication order) aspirin EC tablet 81 mg 81 mg, Oral, Daily, First dose on Sun11/22/22 at 0900, Phase II/On Unit, Do not crush, chew, or split. 0925 (Given - Provider: Mamta Cooley) 0923 (Given - Provider: Bozena Sow LPN) 1027 (Given - Provider: Evgeny Olea, RONAL) bisacodyl (Dulcolax) EC tablet 5 mg 5 mg, Oral, Daily, First dose on Sun11/18/22 at 1030, Do not give within 1 hour of antacids, milk, or dairy products. Do not crush, chew, or split. 0539 (Not Given - Provider: Remy Vera RN - Reason: Patient/family refused) 0440 (Given - Provider: Simba Ham RN) 0530 (Given - Provider: Simba Ham RN) citalopram (CeleXA) tablet 20 mg 20 mg, Oral, Daily, First dose on Sun11/10/22 at 1900 0925 (Given - Provider: Mamta Cooley) 0935 (Given - Provider: Bozena Sow LPN) 1027 (Given - Provider: Evgeny Olea RN) ergocalciferol (Vitamin D2) capsule 1.25 mg 1.25 mg (50,000 Units), Oral, Weekly, First dose on Sun11/12/22 at 0900 0935 (Given - Provider: Bozena Sow LPN) ferrous sulfate tablet 325 mg 325 mg, Oral, Every other day, First dose on Sun11/22/22 at 0900 0923 (Given - Provider: Bozena Sow LPN) fluticasone (Flonase) nasal spray 1 spray 1 spray, Each Nostril, 2 times daily, First dose on Sun11/10/22 at 2100, Shake gently. Before first use, prime pump (press 6 times until fine spray appears). After use, clean tip and replace cap. 0925 (Given - Provider: Mamta Cooley)2031 (Given - Provider: Simba Ham RN) 0925 (Given - Provider: Bozena Sow LPN)2006 (Given - Provider: Simba Ham RN) 1028 (Given - Provider: Evgeny Olea, RONAL)2100 (Canceled Entry - Provider: Automatic Discharge Provider - Comment: Automatically canceled at discontinue of medication order) gabapentin (Neurontin) capsule 100 mg 100 mg, Oral, 3 times daily, First dose on Sun11/17/22 at 1400 0913 (Given - Provider: Bozena Sow LPN)1411 (Given - Provider: Julia Ryan RN)2033 (Given - Provider: Simba aHm RN) 0923 (Given - Provider: Bozena Sow LPN)1624 (Given - Provider: Bozena Sow LPN)2006 (Given - Provider: Simba Ham RN) 1027 (Given - Provider: Evgeny Olea RN)1254 (Given - Provider: Evgeny Olea RN)2100 (Canceled Entry - Provider: Automatic Discharge Provider - Comment: Automatically canceled at discontinue of medication order) gabapentin (Neurontin) capsule 200 mg (COMPLETED) 200 mg, Oral, Once, On Sun11/25/22 at 1845, For 1 dose 2027 (Given - Provider: Simba Ham RN) heparin flush injection 250 Units 250 Units, IntraCATHeter, Every 12 hours, First dose on Sun11/22/22 at 1715, Each lumen. Do NOT administer to lumens with continuous fluids currently infusing. Line Care. Use 10 mL or larger syringe. 0540 (Given - Provider: Remy Vera RN)1728 (Given - Provider: Radha Uriarte, RONAL) 0438 (Given - Provider: Simba Ham RN)2006 (Given - Provider: Simba Ham RN) 0531 (Given - Provider: Simba Ham RN)1755 (Given - Provider: Evgeny Olea, RONAL) Lidocaine 4 % patch 1 patch 1 patch, Topical, Administer over 12 Hours, Daily, First dose on Sun11/10/22 at 1900, Apply patch to leg. Patch may remain in place for up to 12 hours in any 24 hour period. 0925 (Not Given - Provider: Mamta Cooley - Reason: Patient/family refused) 0900 (Not Given - Provider: Bozena Sow LPN - Reason: Patient/family refused) 0900 (Not Given - Provider: Evgeny Olea, RONAL - Reason: Patient/family refused) meropenem (Merrem) 2,000 mg in sodium chloride 0.9 % 100 mL IVPB 2,000 mg, IntraVENous, at 33.3 mL/hr, Administer over 180 Minutes, Every 8 hours, First dose (after last modification) on Sun11/22/22 at 1530, Restricted antimicrobial. This medication will be automatically discontinued in 24 hours. An Infectious Disease consult is required if the patient is to continue receiving this agent., Suspected Indication (Select all that apply): Skin and Soft Tissue Infection 0233 (Stopped - Provider: Remy Vera RN)0926 (New Bag - Provider: Mamta Cooley)1226 (Stopped - Provider: Bozena Sow LPN)1727 (New Bag - Provider: Radha Uriarte RN)2027 (Stopped - Provider: Simba Ham RN)2357 (New Bag - Provider: Simba Ham RN) 0257 (Stopped - Provider: Simba Ham RN)0947 (New Bag - Provider: Bozena Sow LPN)1247 (Stopped - Provider: Bozena Sow LPN)1624 (New Bag - Provider: Bozena Sow LPN)1924 (Stopped - Provider: Simba Ham RN) 0001 (New Bag - Provider: Simba Ham RN)0301 (Stopped - Provider: Simba Ham RN)1030 (New Bag - Provider: Evgeny Olea RN)1330 (Stopped - Provider: Evgeny Olea RN)1530 (New Bag - Provider: Ann Wolfe RN)1830 (Due: Stopped - Provider: Ann Wolfe RN) methocarbamol (Robaxin) tablet 750 mg 750 mg, Oral, Every 8 hours scheduled (3 times per day), First dose on Sun11/22/22 at 1400 0539 (Given - Provider: Remy Vera RN)1432 (Given - Provider: Mamta Cooley)203 (Given - Provider: Simba Ham RN) 0440 (Given - Provider: Simba Ham RN)1400 (Given - Provider: Bozena Sow LPN)2006 (Given - Provider: Simba Ham RN) 0529 (Given - Provider: Simba Ham RN)1254 (Given - Provider: Evgeny Olea RN) mometasone-formoterol (Dulera 100) 100-5 MCG/ACT inhaler 2 puff 2 puff, Inhalation, 2 times daily RT, First dose on Sun11/10/22 at 2000, Rinse mouth with water after use to reduce aftertaste and incidence of candidiasis. Do not swallow. 09 (Given - Provider: Mamta Cooley)2031 (Given - Provider: Simba Ham RN) 0800 (Given - Provider: Bozena Sow LPN)2006 (Given - Provider: Simba Ham RN) 1029 (Given - Provider: Evgeny Olea RN)1999 (Canceled Entry - Provider: Automatic Discharge Provider - Comment: Automatically canceled at discontinue of medication order) pantoprazole (ProtoNix) EC tablet 20 mg 20 mg, Oral, Daily before breakfast, First dose on Sun11/11/22 at 0700, Do not crush, chew, or split. 0539 (Given - Provider: Remy Vera RN) 0520 (Given - Provider: Simba Ham RN) 0530 (Given - Provider: Simba Ham RN) polyethylene glycol (PEG) 3350 (Miralax) packet 17 g 17 g, Oral, Daily, First dose (after last modification) on Sun11/15/22 at 1345, Hold if having loose stools. 09 (Given - Provider: Mamta Cooley) 0923 (Given - Provider: Bozena Sow LPN) 0900 (Not Given - Provider: Evgeny Olea RN - Reason: Patient/family refused) senna-docusate sodium (Senokot-S) 8.6-50 MG tablet 2 tablet 2 tablet, Oral, Nightly, First dose on Sun11/15/22 at 2100, Hold if having loose stools. 2027 (Given - Provider: Simba Ham RN) 2006 (Given - Provider: Simba Ham RN) 2099 (Canceled Entry - Provider: Automatic Discharge Provider - Comment: Automatically canceled at discontinue of medication order) sodium chloride 0.9% (NS) flush 10 mL 10 mL, IntraCATHeter, Every 12 hours, First dose on Sun11/22/22 at 1715, Administer to each lumen, regardless of whether or not fluids are infusing. Line Care. Use 10 mL or larger syringe. 0540 (Given - Provider: Remy Vera RN)1715 (Not Given - Provider: Bozena Sow LPN - Reason: Other) 0515 (Not Given - Provider: Simba Ham RN - Reason: IV Fluids Infusing)1715 (Not Given - Provider: Bozena Sow LPN - Reason: IV Fluids Infusing) 0515 (Not Given - Provider: Simba Ham RN - Reason: IV Fluids Infusing)1715 (Not Given - Provider: Evgeny Olea RN - Reason: IV Fluids Infusing) sodium chloride 0.9% (NS) flush 5-40 mL 5-40 mL, IntraVENous, Every 12 hours, First dose on Sun11/10/22 at 1900, For Line Patency: Peripheral IV = 5 mL; Midline or Central Line = 10 mL/lumen. If following IV push medication, administer flush at same rate as the IV push. Flush volume is determined by type of infusion therapy being given. For non-viscous solutions use: Peripheral IV = 5 mL Midline or Central Line = 10 mL/lumen For viscous solutions (i.e. blood components, parenteral nutrition, contrast media, or after obtaining blood sample) use: Peripheral IV = 10 mL Midline or Central Line = 20 mL/lumen 0926 (Given - Provider: Mamta Cooley)1900 (Not Given - Provider: Bozena Sow LPN - Reason: IV Fluids Infusing) 0500 (Not Given - Provider: Simba Ham RN - Reason: IV Fluids Infusing)2008 (Given - Provider: Simba Ham RN) 0600 (Not Given - Provider: Simba Ham RN - Reason: IV Fluids Infusing)1900 (Canceled Entry - Provider: Automatic Discharge Provider - Comment: Automatically canceled at discontinue of medication order) tiotropium (Spiriva) 18 MCG per inhalation capsule 18 mcg 18 mcg (1 capsule), Inhalation, Daily, First dose on Sun11/10/22 at 1900, Not for oral use. To ensure drug delivery the contents of each capsule should be inhaled twice. 0925 (Given - Provider: Mamta Cooley) 0923 (Given - Provider: Bozena Sow LPN) 1027 (Given - Provider: Evgeny Olea RN) PRN Medication Order 11/25/2022 11/26/2022 11/27/2022 albuterol (2.5 MG/3ML) 0.083% nebulizer solution 2.5 mg 2.5 mg, Nebulization, Every 4 hours PRN, wheezing, Starting on Sun11/13/22 at 0745 budesonide (Pulmicort) 0.5 MG/2ML nebulizer solution 0.5 mg 0.5 mg, Nebulization, 2 times daily PRN, PRN, Starting on Sun11/13/22 at 0745, Rinse mouth with water after use to reduce aftertaste and incidence of candidiasis. Do not swallow. diphenhydrAMINE-zinc acetate (BENADryl) cream Topical, 3 times daily PRN, itching, Starting on Xochilt 11/23/22 at 1540 heparin flush injection 250 Units 250 Units, IntraCATHeter, PRN, line care, after blood draws and after infusion, Starting on Sun11/22/22 at 1710, Do NOT administer to lumens with continuous fluids currently infusing. Line Care. Use 10 mL or larger syringe. HYDROmorphone (Dilaudid) injection 0.25 mg(Linked Group 1) 0.25 mg, IntraVENous, Every 4 hours PRN, moderate pain (4-6), Starting on Sun11/17/22 at 1057, If oral and IV narcotics ordered, use oral first and only use IV if oral is ineffective or cannot take oral. Do Not give oral and IV within 1 hour of each other unless specifically ordered. 0814 (See Alternative - Provider: Radha Uriarte RN)1535 (See Alternative - Provider: Julia Ryan RN)2030 (See Alternative - Provider: Simba Ham RN) 0536 (See Alternative - Provider: Simba Ham RN) 0129 (See Alternative - Provider: Simba Ham RN)1254 (See Alternative - Provider: Evgeny Olea, RONAL)1755 (See Alternative - Provider: Evgeny Olea, RONAL) HYDROmorphone (Dilaudid) injection 0.5 mg(Linked Group 1) 0.5 mg, IntraVENous, Every 4 hours PRN, severe pain (7-10), Starting on Sun11/17/22 at 1057, If oral and IV narcotics ordered, use oral first and only use IV if oral is ineffective or cannot take oral. Do Not give oral and IV within 1 hour of each other unless specifically ordered. 0814 (Given - Provider: Radha Uriarte RN)1535 (Given - Provider: Julia Ryan RN)2030 (Given - Provider: Simba Ham RN) 0536 (Given - Provider: Simba Ham RN) 0129 (Given - Provider: Simba Ham RN)1254 (Given - Provider: Evgeny Olea, RONAL)1755 (Given - Provider: Evgeny Olea RN) LORazepam (Ativan) tablet 0.5 mg 0.5 mg, Oral, Every 8 hours PRN, anxiety, Starting on Sun11/21/22 at 0954 0819 (Given - Provider: Bozena Sow LPN) 0954 (Given - Provider: Bozena Sow LPN) naloxone (Narcan) 0.4 mg in 0.9% sodium chloride 10 mL syringe IntraVENous, PRN, opioid reversal, Starting on Sun11/17/22 at 1057, PRN if respiratory rate is less than 6/min and patient is difficult to arouse then notify physician STAT. Mix 9 mL of sodium chloride 0.9% with 0.4 mg (1 mL) of naloxone (NARCAN) in 10 mL syringe. (Note: dilution is 0.04 mg/mL) Give 0.08 mg (2 mL of special dilution), slow IV push, repeat up to 0.4 mg (10 mL) or until patient is responsive to physical stimulation and respiratory rate is equal to or greater than 6 breaths/min. Continue to observe, if no response within 3 minutes of administration of 0.4 mg (10 mL) total, repeat dose (0.4 mg as administered previously). ondansetron (Zofran) injection 4 mg(Linked Group 2) 4 mg, IntraVENous, Every 6 hours PRN, nausea, vomiting, Starting on Sun11/10/22 at 1856, 1st Line. Give IV if patient is unable to take orally. If inadequate response within 60 minutes, proceed to next-line agent or contact provider if no further options ordered. ondansetron ODT (Zofran-ODT) disintegrating tablet 4 mg(Linked Group 2) 4 mg, Oral, Every 8 hours PRN, nausea, vomiting, Starting on Sun11/10/22 at 1856, 1st Line. If inadequate response within 60 minutes, proceed to next-line agent or contact provider if no further options ordered. Patient should allow tablet to dissolve on tongue. Do not remove from blister pack until just before administering. oxyCODONE (Roxicodone) immediate release tablet 10 mg(Linked Group 3) 10 mg, Oral, Every 4 hours PRN, moderate pain (4-6), Starting on Sun11/17/22 at 1057 0142 (See Alternative - Provider: Remy Vera RN)0540 (See Alternative - Provider: Remy Vera RN)1411 (See Alternative - Provider: Julia Ryan RN) 0439 (See Alternative - Provider: Simba Ham RN)0954 (See Alternative - Provider: Bozena Sow LPN)1624 (See Alternative - Provider: Bozena Sow LPN) 0001 (See Alternative - Provider: Simba Ham RN)0531 (See Alternative - Provider: Simba Ham RN)1027 (See Alternative - Provider: Evgeny Olea RN)1510 (See Alternative - Provider: Ann Wolfe RN) oxyCODONE (Roxicodone) immediate release tablet 15 mg(Linked Group 3) 15 mg, Oral, Every 4 hours PRN, severe pain (7-10), Starting on Sun11/17/22 at 1057 0142 (Given - Provider: Remy Vera RN)0540 (Given - Provider: Remy Vera RN)1411 (Given - Provider: Julia Ryan RN) 0439 (Given - Provider: Simba Ham RN)0954 (Given - Provider: Bozena Sow LPN)1624 (Given - Provider: Bozena Sow LPN) 0001 (Given - Provider: Simba Ham RN)0531 (Given - Provider: Simba Ham RN)1027 (Given - Provider: Evgeny Olea RN)1510 (Given - Provider: Ann Wolfe RN) sodium chloride 0.9 % infusion 5-250 mL/hr, IntraVENous, PRN, if patient receiving piggyback infusions and maintenance fluids are not ordered OR KVO fluids to protect IV site / prevent frequent line interruptions / long duration, Starting on Sun11/10/22 at 1856, For piggyback infusion, administer at same rate as piggyback for a total of 25 mL. Enter 25 mL into dose field and piggyback rate into rate field of order. If piggyback is infusing at a rate less than 100 mL/hr, enter 25 mL into dose field and 100 mL/hr into rate field of order. For KVO fluids, enter rate of 20 mL/hr or less into rate field of order. sodium chloride 0.9% (NS) flush 10 mL 10 mL, IntraCATHeter, PRN, line care, before blood draws, before and after infusion or medication administration, Starting on Sun11/22/22 at 1710, Use 10 mL or larger syringe. sodium chloride 0.9% (NS) flush 5-40 mL 5-40 mL, IntraVENous, PRN, line care, After every IV line use, Starting on Sun11/10/22 at 1856, For Line Patency: Peripheral IV = 5 mL; Midline or Central Line = 10 mL/lumen. If following IV push medication, administer flush at same rate as the IV push. Flush volume is determined by type of infusion therapy being given. For non-viscous solutions use: Peripheral IV = 5 mL Midline or Central Line = 10 mL/lumen For viscous solutions (i.e. blood components, parenteral nutrition, contrast media, or after obtaining blood sample) use: Peripheral IV = 10 mL Midline or Central Line = 20 mL/lumen Linked Groups Order Group 1: HYDROmorphone (Dilaudid) injection 0.25 mgJump to med 0.25 mg, IntraVENous, Every 4 hours PRN, moderate pain (4-6), Starting on Sun11/17/22 at 1057
If oral and IV narcotics ordered, use oral first and only use IV if oral is ineffective or cannot take oral. Do Not give oral and IV within 1 hour of each other unless specifically ordered.
Or HYDROmorphone (Dilaudid) injection 0.5 mgJump to med 0.5 mg, IntraVENous, Every 4 hours PRN, severe pain (7-10), Starting on Sun11/17/22 at 1057
If oral and IV narcotics ordered, use oral first and only use IV if oral is ineffective or cannot take oral. Do Not give oral and IV within 1 hour of each other unless specifically ordered.
Group 2: ondansetron ODT (Zofran-ODT) disintegrating tablet 4 mgJump to med 4 mg, Oral, Every 8 hours PRN, nausea, vomiting, Starting on Sun11/10/22 at 1856
1st Line. If inadequate response within 60 minutes, proceed to next-line agent or contact provider if no further options ordered. Patient should allow tablet to dissolve on tongue. Do not remove from blister pack until just before administering.
Or ondansetron (Zofran) injection 4 mgJump to med 4 mg, IntraVENous, Every 6 hours PRN, nausea, vomiting, Starting on Sun11/10/22 at 1856
1st Line. Give IV if patient is unable to take orally. If inadequate response within 60 minutes, proceed to next-line agent or contact provider if no further options ordered.
Group 3: oxyCODONE (Roxicodone) immediate release tablet 10 mgJump to med 10 mg, Oral, Every 4 hours PRN, moderate pain (4-6), Starting on Sun11/17/22 at 1057 Or oxyCODONE (Roxicodone) immediate release tablet 15 mgJump to med 15 mg, Oral, Every 4 hours PRN, severe pain (7-10), Starting on Sun11/17/22 at 1057 Scheduled Medication Order 12/10/2022 12/11/2022 12/12/2022 amitriptyline (Elavil) tablet 100 mg 100 mg, Oral, Nightly, First dose on Sun12/04/22 at 0100 2230 (Given - Provider: Priya Jack RN) 2036 (Given - Provider: Sravani Pugh RN) 2100 (Canceled Entry - Provider: Automatic Discharge Provider - Comment: Automatically canceled at discontinue of medication order) apixaban (Eliquis) tablet 5 mg 5 mg, Oral, 2 times daily, First dose on Sun12/11/22 at 1315, Anticoagulant 1434 (Given - Provider: Kary Virgen RN)2032 (Given - Provider: Sravani Pugh RN) 0836 (Given - Provider: Kary Virgen RN)2100 (Canceled Entry - Provider: Automatic Discharge Provider - Comment: Automatically canceled at discontinue of medication order) budesonide (Pulmicort) 0.5 MG/2ML nebulizer solution 0.5 mg (CANCELED) 0.5 mg, Nebulization, Daily, First dose on Sun12/04/22 at 0800, Rinse mouth with water after use to reduce aftertaste and incidence of candidiasis. Do not swallow. 0807 (Given - Provider: Keaton Blanc RCP) 0954 (Not Given - Provider: Divya Santana, PETER - Reason: Patient/family refused) citalopram (CeleXA) tablet 20 mg 20 mg, Oral, Daily, First dose on Sun12/04/22 at 0900 1051 (Given - Provider: Namrata Zhu RN) 0846 (Given - Provider: Kary Virgen RN) 0836 (Given - Provider: Kary Virgen RN) DAPTOmycin (Cubicin) 600 mg in sodium chloride 0.9 % 50 mL IVPB 600 mg (rounded from 591.6 mg = 6 mg/kg 98.6 kg Adjusted weight), IntraVENous, at 100 mL/hr, Administer over 30 Minutes, Every 24 hours, First dose on Sun12/11/22 at 1345, Incompatible with dextrose containing solutions. Use Adjusted Body Weight to dose daptomycin if BMI is 30 or greater. Adjusted weight for BMI > 30., Does patient have decreased suseptibility to vancomycin such as S. aureus MCKAYLA >= 2 (except for UTI, MCKAYLA of 2 is OK due to renal elimination), S. epidermidis MCKAYLA >= 4, or Enterococcus MCKAYLA >= 4? Yes, 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 1503 (New Bag - Provider: Kary Virgen RN)1533 (Stopped - Provider: Kary Virgen RN) 1411 (New Bag - Provider: Kary Virgen RN)1441 (Stopped - Provider: Kary D. Flaisman, RN) enoxaparin (Lovenox) syringe 40 mg (CANCELED) 40 mg, SubCUTAneous, Daily, First dose (after last modification) on Sun12/06/22 at 0900, Phase II/On Unit, Indication of Use: Prophylaxis-DVT/PE 1052 (Given - Provider: Namrata Zhu RN) 0846 (Given - Provider: Kary Virgen, RONAL) ferrous sulfate tablet 325 mg 325 mg, Oral, Daily with breakfast, First dose on Sun12/13/22 at 0800 gabapentin (Neurontin) capsule 300 mg 300 mg, Oral, Nightly, First dose on Sun12/04/22 at 0100 2226 (Given - Provider: Priya Jack, RONAL) 2033 (Given - Provider: Sravani Pugh RN) 2100 (Canceled Entry - Provider: Automatic Discharge Provider - Comment: Automatically canceled at discontinue of medication order) heparin flush injection 250 Units 250 Units, IntraCATHeter, Every 12 hours, First dose on Sun12/07/22 at 1700, Each lumen. Do NOT administer to lumens with continuous fluids currently infusing. Line Care. Use 10 mL or larger syringe. 0508 (Given - Provider: Daniel Singh RN)1700 (Not Given - Provider: Namrata Zhu RN - Reason: Other) 0615 (Given - Provider: Priya Jack RN)1647 (Given - Provider: Kary Virgen, RONAL) 0613 (Given - Provider: Sravani Pugh RN)1445 (Given - Provider: Kary Virgen RN) iron sucrose (Venofer) 200 mg in sodium chloride 0.9 % 100 mL IVPB (COMPLETED) 200 mg, IntraVENous, at 100 mL/hr, Administer over 60 Minutes, Once, On Sun12/12/22 at 1045, For 1 dose, Observe for signs and symptoms of hypersensitivity and/or anaphylactic-type reactions per institutional standard during and following administration. 1113 (New Bag - Provider: Kary Virgen, RONAL)1213 (Stopped - Provider: Kary Virgen, RONAL) Lidocaine 4 % patch 1 patch 1 patch, TransDERmal, Administer over 12 Hours, Daily, First dose on Sun12/07/22 at 0900, Apply patch to left shoulder. Patch may remain in place for up to 12 hours in any 24 hour period. 1051 (Medication Applied - Provider: Namrata Zhu RN - Comment: cut in half and put on front and back of shoulder)2251 (Medication Removed - Provider: Priya Jack RN) 0846 (Medication Applied - Provider: Kary Virgen, RONAL)2046 (Medication Removed - Provider: Sravani Pugh RN) 0835 (Medication Applied - Provider: Kary Virgen RN)1900 (Due: Medication Removed - Provider: Automatic Discharge Provider - Comment: Time automatically adjusted from order being discontinued) meropenem (Merrem) 2,000 mg in sodium chloride 0.9 % 100 mL IVPB 2,000 mg, IntraVENous, at 200 mL/hr, Administer over 30 Minutes, Every 8 hours, First dose on Sun12/05/22 at 1030, 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 0508 (New Bag - Provider: Daniel Singh RN)0538 (Stopped - Provider: Daniel Singh RN)1441 (New Bag - Provider: Namrata Zhu RN)1511 (Stopped - Provider: Namrata Zhu, RONAL)2100 (New Bag - Provider: Priya Jack, RONAL)2130 (Stopped - Provider: Priya Jack, RONAL) 0436 (New Bag - Provider: Anahi Hughes, RONAL)0506 (Stopped - Provider: Priya Jack, RONAL)1200 (New Bag - Provider: Kary Virgen RN)1230 (Stopped - Provider: Kary Virgen RN)2045 (New Bag - Provider: Sravani Pugh, RN)2115 (Stopped - Provider: Sravani Pugh, RN) 0611 (New Bag - Provider: Sravani Pugh, RN)0700 (Stopped - Provider: Kary Virgen, RONAL)1335 (New Bag - Provider: Kary Virgen, RONAL)1405 (Stopped - Provider: Kary Virgen, RONAL)2000 (Canceled Entry - Provider: Automatic Discharge Provider - Comment: Automatically canceled at discontinue of medication order) methocarbamol (Robaxin) tablet 750 mg 750 mg, Oral, Every 8 hours scheduled (3 times per day), First dose on Sun12/04/22 at 0600 0549 (Given - Provider: Daniel Singh RN)1442 (Given - Provider: Namrata Zhu RN)2100 (Given - Provider: Priya Jack RN) 0616 (Given - Provider: Priya Jack RN)1434 (Given - Provider: Kary Virgen RN)2125 (Given - Provider: Sravani Pugh RN) 0611 (Given - Provider: Sravani Pugh RN)1343 (Given - Provider: Kary Virgen RN) miconazole (Micotin) 2 % powder Topical, 2 times daily, First dose on Sun12/10/22 at 2100 2100 (Given - Provider: Priya Jack RN) 0854 (Given - Provider: Kary Virgen RN)2099 (Given - Provider: Sravani Pugh RN) 0838 (Given - Provider: Kary Virgen RN)2099 (Canceled Entry - Provider: Automatic Discharge Provider - Comment: Automatically canceled at discontinue of medication order) mometasone-formoterol (Dulera 200) 200-5 MCG/ACT inhaler 2 puff 2 puff, Inhalation, 2 times daily RT, First dose on Sun12/04/22 at 0100, Rinse mouth with water after use to reduce aftertaste and incidence of candidiasis. Do not swallow. 1059 (Given - Provider: Namrata Zhu RN)2134 (Given - Provider: Priya Jack RN) 0850 (Given - Provider: Kary Virgen RN)2045 (Given - Provider: Sravani Pugh RN) 0837 (Given - Provider: Kary Virgen RN)1999 (Canceled Entry - Provider: Automatic Discharge Provider - Comment: Automatically canceled at discontinue of medication order) pantoprazole (ProtoNix) EC tablet 40 mg 40 mg, Oral, Daily before breakfast, First dose on Sun12/04/22 at 0700, Do not crush or break. Substituted for Dexlansoprazole (DEXILANT). Do not crush, chew, or split. 0549 (Given - Provider: Daniel Singh RN) 0617 (Given - Provider: Priya Jack RN) 0611 (Given - Provider: Sravani Pugh RN) polyethylene glycol (PEG) 3350 (Miralax) packet 17 g 17 g, Oral, Daily, First dose on Sun12/04/22 at 0900 1052 (Not Given - Provider: Namrata Zhu RN - Reason: Patient/family refused) 0900 (Not Given - Provider: Kary Virgen RN - Reason: Patient/family refused) 0900 (Not Given - Provider: Kary Virgen RN - Reason: Patient/family refused) senna-docusate sodium (Senokot-S) 8.6-50 MG tablet 2 tablet 2 tablet, Oral, Nightly, First dose on Sun12/04/22 at 0100 2100 (Not Given - Provider: Priya Jack RN - Reason: Patient/family refused) 2032 (Given - Provider: Sravani Pugh RN) 2100 (Canceled Entry - Provider: Automatic Discharge Provider - Comment: Automatically canceled at discontinue of medication order) sodium chloride 0.9% (NS) flush 10 mL 10 mL, IntraCATHeter, Every 12 hours, First dose on Sun12/07/22 at 1700, Administer to each lumen, regardless of whether or not fluids are infusing. Line Care. Use 10 mL or larger syringe. 0555 (Given - Provider: Daniel Singh RN)1700 (Not Given - Provider: Namrata Zhu RN - Reason: Other) 0500 (Not Given - Provider: Priya Jack RN - Reason: IV Fluids Infusing)1647 (Given - Provider: Kary Virgen, RONAL) 0613 (Given - Provider: Sravani Pugh RN)1556 (Not Given - Provider: Kary Virgen RN - Reason: Other) tiotropium (Spiriva) 18 MCG per inhalation capsule 18 mcg 18 mcg (1 capsule), Inhalation, Daily, First dose on Sun12/04/22 at 0800, Not for oral use. To ensure drug delivery the contents of each capsule should be inhaled twice. 1051 (Given - Provider: Namrata Zhu RN) 0847 (Given - Provider: Kary Virgen, RONAL) 0836 (Given - Provider: Kary Virgen, RONAL) vancomycin (Vancocin) 1,500 mg in dextrose 5 % 250 mL IVPB (CANCELED) 1,500 mg, IntraVENous, at 166.7 mL/hr, Administer over 120 Minutes, Every 12 hours, First dose (after last modification) on Sun12/04/22 at 2300, Suspected Indication (Select all that apply): Skin and Soft Tissue Infection 0114 (Stopped - Provider: Daniel Singh RN)1449 (New Bag - Provider: Namrata Zhu RN)1649 (Stopped - Provider: Namrata Zhu RN)2235 (New Bag - Provider: Priya Jack RN) 0035 (Stopped - Provider: Priya Jack RN)1200 (New Bag - Provider: Kary Virgen RN)1400 (Stopped - Provider: Kary Virgen RN) PRN Medication Order 12/10/2022 12/11/2022 12/12/2022 acetaminophen (Tylenol) suppository 650 mg(Linked Group 1) 650 mg, Rectal, Every 4 hours PRN, mild pain (1-3), fever, headaches, moderate pain (4-6), For temp greater than 100.4 F (38 C), Starting on Sun12/04/22 at 0044, Administer if oral route cannot be used. Maximum dose of acetaminophen is 4000 mg from all sources in 24 hours. 1051 (See Alternative - Provider: Namrata Zhu RN) acetaminophen (Tylenol) tablet 650 mg(Linked Group 1) 650 mg, Oral, Every 4 hours PRN, mild pain (1-3), fever, moderate pain (4-6), headaches, For temp greater than 100.4 F (38 C), Starting on Sun12/04/22 at 0044, Maximum dose of acetaminophen is 4000 mg from all sources in 24 hours. 1051 (Given - Provider: Namrata Zhu RN) albuterol 108 (90 Base) MCG/ACT inhaler 2 puff 2 puff, Inhalation, Every 4 hours PRN, wheezing, Starting on Sun12/04/22 at 0044 2034 (Given - Provider: Sravani Pugh, RONAL) heparin flush injection 250 Units 250 Units, IntraCATHeter, PRN, line care, after blood draws and after infusion, Starting on Xochilt 12/07/22 at 1650, Do NOT administer to lumens with continuous fluids currently infusing. Line Care. Use 10 mL or larger syringe. LORazepam (Ativan) tablet 0.5 mg 0.5 mg, Oral, Every 8 hours PRN, anxiety, Starting on Sun12/04/22 at 0044 0620 (Given - Provider: Daniel Singh RN)2243 (Given - Provider: Priya Jack, RONAL) melatonin tablet 5 mg 5 mg, Oral, Nightly PRN, sleep, Starting on Sun12/04/22 at 0044, Indications: Insomnia 224 (Given - Provider: Priya Jack RN) 2127 (Given - Provider: Sravani Pugh RN) ondansetron (Zofran) injection 4 mg(Linked Group 2) 4 mg, IntraVENous, Every 6 hours PRN, nausea, vomiting, Starting on Sun12/04/22 at 0044, 1st Line. Give IV if patient is unable to take orally. If inadequate response within 60 minutes, proceed to next-line agent or contact provider if no further options ordered. ondansetron ODT (Zofran-ODT) disintegrating tablet 4 mg(Linked Group 2) 4 mg, Oral, Every 8 hours PRN, nausea, vomiting, Starting on Sun12/04/22 at 0044, 1st Line. If inadequate response within 60 minutes, proceed to next-line agent or contact provider if no further options ordered. Patient should allow tablet to dissolve on tongue. Do not remove from blister pack until just before administering. oxyCODONE-acetaminophen (Percocet) 5-325 MG per tablet 2 tablet 2 tablet, Oral, Every 6 hours PRN, severe pain (7-10), Starting on Sun12/04/22 at 1136, Maximum dose of acetaminophen is 4000 mg from all sources in 24 hours. 0549 (Given - Provider: Daniel Singh RN)1442 (Given - Provider: Namrata Zhu RN)2226 (Given - Provider: Priya Jack RN) 0846 (Given - Provider: Kary Virgen, RN)8222 (Given - Provider: Sravani Pugh RN) 6845 (Given - Provider: Kary Virgen RN) sodium chloride 0.9% (NS) flush 10 mL 10 mL, IntraCATHeter, PRN, line care, before blood draws, before and after infusion or medication administration, Starting on Xochilt 12/07/22 at 1650, Use 10 mL or larger syringe. Linked Groups Order Group 1: acetaminophen (Tylenol) tablet 650 mgJump to med 650 mg, Oral, Every 4 hours PRN, mild pain (1-3), fever, moderate pain (4-6), headaches, For temp greater than 100.4 F (38 C), Starting on Sun12/04/22 at 0044
Maximum dose of acetaminophen is 4000 mg from all sources in 24 hours.
Or acetaminophen (Tylenol) suppository 650 mgJump to med 650 mg, Rectal, Every 4 hours PRN, mild pain (1-3), fever, headaches, moderate pain (4-6), For temp greater than 100.4 F (38 C), Starting on Sun12/04/22 at 0044
Administer if oral route cannot be used. Maximum dose of acetaminophen is 4000 mg from all sources in 24 hours.
Group 2: ondansetron ODT (Zofran-ODT) disintegrating tablet 4 mgJump to med 4 mg, Oral, Every 8 hours PRN, nausea, vomiting, Starting on Sun12/04/22 at 0044
1st Line. If inadequate response within 60 minutes, proceed to next-line agent or contact provider if no further options ordered. Patient should allow tablet to dissolve on tongue. Do not remove from blister pack until just before administering.
Or ondansetron (Zofran) injection 4 mgJump to med 4 mg, IntraVENous, Every 6 hours PRN, nausea, vomiting, Starting on Sun12/04/22 at 0044
1st Line. Give IV if patient is unable to take orally. If inadequate response within 60 minutes, proceed to next-line agent or contact provider if no further options ordered.
Care Teams (unrecognized sec tion and content) Civil Cad Designer Relationship Specialty Start Date End Date Oj Maddox, CABLE DRILLER - [facility] PCP - General 02/03/19 Civil Cad Designer Relationship Specialty Start Date End Date Oj Maddox, CABLE DRILLER - [employer] PCP - General 02/03/19 Civil Cad Designer Relationship Specialty Start Date End Date Oj Maddox, CABLE DRILLER [facility] PCP - General 02/03/19 Team Status: Active Member Role Status Dates Oj Maddox MAINTENANCE MECHANIC ENGINE, MAINTENANCE MECHANIC ENGINE-C Family Provider Activ e Oj Maddox MAINTENANCE MECHANIC ENGINE, MAINTENANCE MECHANIC ENGINE-C Primary Care Provider Active Team Status: Active Member Role Status Dates Oj Maddox MAINTENANCE MECHANIC ENGINE, MAINTENANCE MECHANIC ENGINE-C Primary Care Provider Active Dr. Mario Marcelo MD Emergency Provider Active Dr. Phylicia Hurtado MD Admit Provider, Referring Provider, Other Provider Active Dr. Ludwin Lo DO Attending Provider, Other Provide r Active Dr. Mag Cantu MD Other Provider Active Team Status: Active Member Role Status Dates Oj Maddox MAINTENANCE MECHANIC ENGINE, MAINTENANCE MECHANIC ENGINE-C Primary Care Provider Active Dr. Rosenda Freedman MD Attending Provider Active Team Status: Active Member Role Status Dates Oj Maddox MAINTENANCE MECHANIC ENGINE, MAINTENANCE MECHANIC ENGINE-C Primary Care Provider Active Dr. Mario Marcelo MD Emergency Provider Active Dr. Phylicia Hurtado MD Admit Provider, Other Provider Active Dr. Ludwin Lo DO Other Provider Active Dr. Mag Cantu MD Attending Provider, Other Prov ider Active Dr. Andrea Royal MD Other Provider Active Team Status: Active Member Role Status Dates Oj Maddox MAINTENANCE MECHANIC ENGINE, MAINTENANCE MECHANIC ENGINE-C Primary Care Provider Active Dr. Andrea Prasad MD Attending Provider Active Dr. Andrea Royal MD Referring Provider Active Team Status: Active Member Role Status Dates Oj Maddox MAINTENANCE MECHANIC ENGINE, MAINTENANCE MECHANIC ENGINE-C Primary Care Provider Active Dr. Mario Marcelo MD Emergency Provider Active Dr. Phylicia Hurtado MD Admit Provider, Other Provider Active Dr. Mag Cantu MD Other Provider Active Dr. Andrea Royal MD Other Provider Active Dr. Ludwin Lo DO Attending Provider, Other Provide r Active Team Status: Active Member Role Status Dates Oj Maddox MAINTENANCE MECHANIC ENGINE, MAINTENANCE MECHANIC ENGINE-C Primary Care Provider Active Dr. Mario Marcelo MD Emergency Provider Active Dr. Phylicia Hurtado MD Admit Provider, Other Provider Active Dr. Mag Cantu MD Attending Provider, Other Prov ider Active Dr. Andrea Royal MD Other Provider Active Dr. Ludwin Lo , Other Provider Active Team Status: Active Member Role Status Dates jO Maddox MAINTENANCE MECHANIC ENGINE, MAINTENANCE MECHANIC ENGINE-C Primary Care Provider Active Dr. Mario Marcelo MD Emergency Provider Active Dr. Phylicia Hurtado MD Admit Provider, Other Provider Active Dr. Andrea Royal MD Other Provider Active Dr. Ludwin Lo DO Other Provider Active Dr. Kelsey Lima MD Other Provider Active Dr. Mag Cantu MD Other Provider Active Dr. Baljit Feng MD Attending Provider Active Team Status: Active Member Role Status Dates Oj Maddox MAINTENANCE MECHANIC ENGINE, MAINTENANCE MECHANIC ENGINE-C Primary Care Provider Active Dr. Mario Marcelo MD Emergency Provider Active Dr. Phylicia Hurtado MD Admit Provider, Other Provider Active Dr. Andrea Royal MD Other Provider Active Dr. Ludwin Lo DO Other Provider Active Dr. Kelsey Lima MD Attending Provider, Other Provid er Active Dr. Mag Cantu MD Other Provider Active Team Status: Active Member Role Status Dates Oj Maddox MAINTENANCE MECHANIC ENGINE, MAINTENANCE MECHANIC ENGINE-C Primary Care Provider Active Dr. Eulalio De La Cruz MD Referring Provider, Emergency Pro vider Active Dr. Rigo Trinidad MD Attending Provider Active Team Status: Inactive Member Role Status Dates Oj Maddox MAINTENANCE MECHANIC ENGINE, MAINTENANCE MECHANIC ENGINE-C Primary Care Provider, Referring Provider Active Adwoa Cruz MAINTENANCE MECHANIC ENGINE, MAINTENANCE MECHANIC ENGINE-C Attending Provider Active Team Status: Active Member Role Status Dates Oj Maddox MAINTENANCE MECHANIC ENGINE, MAINTENANCE MECHANIC ENGINE-C Primary Care Provider Active Dr. David Felipe , Emergency Provider Active Dr. Mag Cantu MD Admit Provider, Other Provider Active Dr. Rigo Trinidad MD Attending Provider, Other Provider Active Team Status: Inactive Member Role Status Dates Oj Maddox MAINTENANCE MECHANIC ENGINE, MAINTENANCE MECHANIC ENGINE-C Primary Care Provider Active Dr. Mario Marcelo MD Emergency Provider Active Dr. Phylicia Hurtado MD Admit Provider, Other Provider Active Dr. Andrea Royal MD Other Provider Active Dr. Ludwin Lo , DO Other Provider Active Dr. Kelsey Lima MD Attending Provider Active Dr. Mag Cantu MD Other Provider Active Team Status: Inactive Member Role Status Dates Oj Maddox MAINTENANCE MECHANIC ENGINE, MAINTENANCE MECHANIC ENGINE-C Primary Care Provider Active Dr. Eulalio De La Cruz MD Attending Provider, Emergency Pro vider Active Team Status: Inactive Member Role Status Dates Oj Maddox MAINTENANCE MECHANIC ENGINE, MAINTENANCE MECHANIC ENGINE-C Primary Care Provider Active Dr. David Felipe , Emergency Provider Active Dr. Mag Cantu MD Admit Provider, Other Provider Active Dr. Rigo Trinidad MD Attending Provider Active Team Status: Active Member Role Status Dates Oj Maddox MAINTENANCE MECHANIC ENGINE, MAINTENANCE MECHANIC ENGINE-C Primary Care Provider Active Dr. Chris Gomez MD Attending Provider Active Dr. Laron Campoverde MD Referring Provider Active Team Status: Active Member Role Status Dates Oj Maddox MAINTENANCE MECHANIC ENGINE, MAINTENANCE MECHANIC ENGINE-C Primary Care Provider Active Dr. Louis Martinez MD Attending Provider Active Dr. Mag Cantu MD Referring Provider Active Team Status: Inactive Member Role Status Dates Oj Maddox MAINTENANCE MECHANIC ENGINE, MAINTENANCE MECHANIC ENGINE-C Primary Care Provider Active Maximino Hubbard MD Emergency Provider Active Civil Cad Designer Relationship Specialty Start Date End Date Oj Maddox [facility] [place] [address] PCP - General 02/03/19 Civil Cad Designer Relationship Specialty Start Date End Date Oj Maddox [address] [facility] [place] [address] PCP - General 02/03/19 Civil Cad Designer Relationship Specialty Start Date End Date Oj Maddox [facility] [place] [address] PCP - General 02/03/19 Civil Cad Designer Relationship Specialty Start Date End Date Oj Maddox [facility] [place] [address] PCP - General 02/03/19 Civil Cad Designer Relationship Specialty Start Date End Date Oj Maddox [address] [place] [address] PCP - General 02/03/19 Civil Cad Designer Relationship Specialty Start Date End Date Oj Maddox [address] [place] [address] PCP - General 02/03/19 Civil Cad Designer Relationship Specialty Start Date End Date Oj Maddox [address] [place] [address] PCP - General 02/03/19 Civil Cad Designer Relationship Specialty Start Date End Date Oj Maddox [address] [place] [address] PCP - General 02/03/19 Civil Cad Designer Relationship Specialty Start Date End Date Oj Maddox [address] [place] [address] PCP - General 02/03/19 Civil Cad Designer Relationship Specialty Start Date End Date Oj Maddox [address] [place] [address] PCP - General 02/03/19 Civil Cad Designer Relationship Specialty Start Date End Date Oj Maddox [address] [place] [address] PCP - General 02/03/19 Civil Cad Designer Relationship Specialty Start Date End Date Oj Maddox [address] [facility] [place] [address] PCP - General 02/03/19 Civil Cad Designer Relationship Specialty Start Date End Date Oj Maddox [address] [facility] [place] [address] PCP - General 02/03/19 Civil Cad Designer Relationship Specialty Start Date End Date Oj Maddox [address] [facility] [place] [address] PCP - General 02/03/19 Civil Cad Designer Relationship Specialty Start Date End Date Oj Maddox [address] [facility] [place] [address] PCP - General 02/03/19 Civil Cad Designer Relationship Specialty Start Date End Date Oj Maddox [address] [facility] [place] [address] PCP - General 02/03/19 Civil Cad Designer Relationship Specialty Start Date End Date Oj Maddox [address] [facility] [place] [address] PCP - General 02/03/19 Civil Cad Designer Relationship Specialty Start Date End Date Oj Maddox [address] [facility] [place] [address] PCP - General 02/03/19 Civil Cad Designer Relationship Specialty Start Date End Date Oj Maddox [address] [facility] [place] [address] PCP - General 02/03/19 Civil Cad Designer Relationship Specialty Start Date End Date Oj Maddox [address] [facility] [place] [address] PCP - General 02/03/19 Civil Cad Designer Relationship Specialty Start Date End Date Oj Maddox [address] [facility] [place] [address] PCP - General 02/03/19 Civil Cad Designer Relationship Specialty Start Date End Date Oj Maddox [address] [facility] [place] [address] PCP - General 02/03/19 Civil Cad Designer Relationship Specialty Start Date End Date Oj Maddox [address] [facility] [place] [address] PCP - General 02/03/19 Civil Cad Designer Relationship Specialty Start Date End Date Oj Maddox [address] [facility] [place] [address] PCP - General 02/03/19 Civil Cad Designer Relationship Specialty Start Date End Date Oj Maddox [address] [facility] [place] [address] PCP - General 02/03/19 Civil Cad Designer Relationship Specialty Start Date End Date Oj Maddox [address] [facility] [place] [address] PCP - General 02/03/19 Civil Cad Designer Relationship Specialty Start Date End Date Oj Maddox [address] [facility] [place] [address] PCP - General 02/03/19 Civil Cad Designer Relationship Specialty Start Date End Date Oj Maddox [address] [facility] [place] [address] PCP - General 02/03/19 Civil Cad Designer Relationship Specialty Start Date End Date Oj Maddox [address] [facility] [place] [address] PCP - General 02/03/19 Team Status: Active Member Role Status Dates Oj Maddox MAINTENANCE MECHANIC ENGINE, MAINTENANCE MECHANIC ENGINE-C Primary Care Provider Active Dr. Edy Calvin , DO Emergency Provider Active Dr. Laron Campoverde MD Attending Provider Active Team Status: Active Member Role Status Dates Oj Maddox MAINTENANCE MECHANIC ENGINE, MAINTENANCE MECHANIC ENGINE-C Primary Care Provider Active Dr. Edy Calvin , DO Emergency Provider Active Dr. Laron Campoverde MD Admit Provider, Attending Provi huy Active Team Status: Active Member Role Status Dates Oj Maddox MAINTENANCE MECHANIC ENGINE, MAINTENANCE MECHANIC ENGINE-C Primary Care Provider Active Dr. Edy Calvin , DO Emergency Provider Active Dr. Laron Campoverde MD Admit Provider, Other Provider Active Dr. Jon Brito , DO Attending Provider, Other Pro vider Active Team Status: Active Member Role Status Dates Oj Maddox MAINTENANCE MECHANIC ENGINE, MAINTENANCE MECHANIC ENGINE-C Primary Care Provider Active Dr. Edy Calvin , DO Emergency Provider Active Dr. Laron Campoverde MD Admit Provider, Other Provider Active Dr. Kelsey Lima MD Attending Provider, Other Provid er Active Dr. Jon Brito , DO Other Provider Active Team Status: Inactive Member Role Status Dates Oj Maddox MAINTENANCE MECHANIC ENGINE, MAINTENANCE MECHANIC ENGINE-C Primary Care Provider Active Dr. Edy Calvin , DO Emergency Provider Active Dr. Laron Campoverde MD Admit Provider, Other Provider Active Dr. Kelsey Lima MD Attending Provider Active Dr. Jon Brito , DO Other Provider Active Civil Cad Designer Relationship Specialty Start Date End Date Oj Maddox [address] [facility] [place] [address] PCP - General 02/03/19 Civil Cad Designer Relationship Specialty Start Date End Date Oj Maddox [address] [facility] [place] [address] PCP - General 02/03/19 Civil Cad Designer Relationship Specialty Start Date End Date Oj Maddox [address] [facility] [place] [address] PCP - General 02/03/19 Civil Cad Designer Relationship Specialty Start Date End Date Oj Maddox [address] [facility] [place] [address] PCP - General 02/03/19 Civil Cad Designer Relationship Specialty Start Date End Date Oj Maddox [address] [facility] [place] [address] PCP - General 02/03/19 Civil Cad Designer Relationship Specialty Start Date End Date Oj Maddox [address] [facility] [place] [address] PCP - General 02/03/19 Civil Cad Designer Relationship Specialty Start Date End Date Oj Maddox [address] [facility] [place] [address] PCP - General 02/03/19 Civil Cad Designer Relationship Specialty Start Date End [facility] [place] [address] PCP - General 02/03/19 Civil Cad Designer Relationship Specialty Start Date End Date [facility]j [facility] [place] [address] PCP - General 02/03/19 Civil Cad Designer Relationship Specialty Start Date End Date [facility] [place] [address] PCP - General 02/03/19 Civil Cad Designer Relationship Specialty Start Date End Date Oj Maddox [facility] [place] [address] PCP - General 02/03/19 Civil Cad Designer Relationship Specialty Start Date End Date Oj Maddox [facility] [place] [address] PCP - General 02/03/19 Civil Cad Designer Relationship Specialty Start Date End Date Oj Maddox [facility] [place] [address] PCP - General 02/03/19 Civil Cad Designer Relationship Specialty Start Date End Date [facility]j Madd[facility] [place] [address] PCP - General 02/03/19 Civil Cad Designer Relationship Specialty Start Date End Date Oj Maddox [facility] [place] [address] PCP - General 02/03/19 Team Status: Active Member Role Status Dates Dr. Louis Penn MD Primary Care Provider Active Team Status: Inactive Member Role Status Dates Dr. Louis Penn MD Primary Care Provider Active Start: December 19, 2024 End: December 19, 2024 Dr. Louis Penn MD Referring Provider Active Start: December 19, 2024 End: December 19, 2024 Dr. Kayla Alcantara MD Attending Provider Active Start: December 19, 2024 End: December 19, 2024 Team Status: Inactive Member Role Status Dates Dr. Louis Penn MD Primary Care Provider Active Start: December 29, 2024 End: December 29, 2024 Dr. Louis Penn MD Referring Provider Active Start: December 29, 2024 End: December 29, 2024 Dr. Kayla Alcantara MD Attending Provider Active Start: December 29, 2024 End: December 29, 2024 Team Status: Active Member Role Status Dates Dr. Louis Penn MD Primary Care Provider Active Start: January 14, 2025 Dr. Colt Chappell DO Emergency Provider Active Start: January 14, 2025 Dr. Rigo Trinidad MD Admit Provider Active Start: January 14, 2025 Dr. Rigo Trinidad MD Attending Provider Active Start: January 14, 2025 Team Status: Inactive Member Role Status Dates Dr. Louis Penn MD Primary Care Provider Active Start: January 14, 2025 End: January 17, 2025 Dr. Colt Chappell DO Emergency Provider Active Start: January 14, 2025 End: January 17, 2025 Dr. Rigo Trinidad MD Admit Provider Active Start: January 14, 2025 End: January 17, 2025 Dr. Rigo Trinidad MD Attending Provider Active Start: January 14, 2025 End: January 17, 2025 Team Status: Active Member Role Status Dates Dr. Louis Penn MD Primary Care Provider Active Start: January 14, 2025 Dr. Colt Chappell DO Emergency Provider Active Start: January 14, 2025 Dr. Rigo Trinidad MD Admit Provider Active Start: January 14, 2025 Dr. Rigo Trinidad MD Attending Provider Active Start: January 14, 2025 Dr. Rigo Trinidad MD Other Provider Active Start: January 14, 2025 Team Status: Active Member Role Status Dates Dr. Louis Penn MD Primary Care Provider Active Start: January 15, 2025 Dr. Colt Chappell DO Emergency Provider Active Start: January 15, 2025 Dr. Rigo Trinidad MD Admit Provider Active Start: January 15, 2025 Dr. Rigo Trinidad MD Attending Provider Active Start: January 15, 2025 Dr. Rigo Trinidad MD Other Provider Active Start: January 15, 2025 Team Status: Active Member Role Status Dates Dr. Louis Penn MD Primary Care Provider Active Start: January 16, 2025 Dr. Colt Chappell DO Emergency Provider Active Start: January 16, 2025 Dr. Rigo Trinidad MD Admit Provider Active Start: January 16, 2025 Dr. Rigo Trinidad MD Attending Provider Active Start: January 16, 2025 Dr. Rigo Trinidad MD Other Provider Active Start: January 16, 2025 Team Status: Active Member Role Status Dates Dr. Louis Penn MD Primary Care Provider Active Start: January 17, 2025 Dr. Colt Chappell DO Emergency Provider Active Start: January 17, 2025 Dr. Rigo Trinidad MD Admit Provider Active Start: January 17, 2025 Dr. Rigo Trinidad MD Attending Provider Active Start: January 17, 2025 Dr. Rigo Trinidad MD Other Provider Active Start: January 17, 2025 Civil Cad Designer Relationship Specialty Start Date End Date Louis Penn MD [address] [facility] [address] [place], [place] [address] PCP - General Family Medicine 04/29/25 Civil Cad Designer Relationship Specialty Start Date End Date Louis Penn MD [address] [facility] [address] [place] [address] PCP - General Family Medicine 04/29/25 Team Status: Active Member Role/Relationship Status Dates Dr. Louis Penn MD Primary Care Provider Active Team Status: Inactive Member Role/Relationship Status Dates Dr. Louis Penn MD Primary Care Provider Active Start: January 14, 2025 End: January 17, 2025 Dr. Colt Chappell DO Emergency Provider Active Start: January 14, 2025 End: January 17, 2025 Dr. Rigo Trinidad MD Admit Provider Active Start: January 14, 2025 End: January 17, 2025 Dr. Rigo Trinidad MD Attending Provider Active Start: January 14, 2025 End: January 17, 2025 Team Status: Active Member Role/Relationship Status Dates Dr. Louis Penn MD Primary Care Provider Active Start: January 14, 2025 Dr. Colt Chappell DO Emergency Provider Active Start: January 14, 2025 Dr. Rigo Trinidad MD Admit Provider Active Start: January 14, 2025 Dr. Rigo Trinidad MD Attending Provider Active Start: January 14, 2025 Dr. Rigo Trinidad MD Other Provider Active Start: January 14, 2025 Team Status: Active Member Role/Relationship Status Dates Dr. Louis Penn MD Primary Care Provider Active Start: January 15, 2025 Dr. Colt Chappell DO Emergency Provider Active Start: January 15, 2025 Dr. Rigo Trinidad MD Admit Provider Active Start: January 15, 2025 Dr. Rigo Trinidad MD Attending Provider Active Start: January 15, 2025 Dr. Rigo Trinidad MD Other Provider Active Start: January 15, 2025 Team Status: Active Member Role/Relationship Status Dates Dr. Louis Penn MD Primary Care Provider Active Start: January 16, 2025 Dr. Colt Chappell DO Emergency Provider Active Start: January 16, 2025 Dr. Rigo Trinidad MD Admit Provider Active Start: January 16, 2025 Dr. Rigo Trinidad MD Attending Provider Active Start: January 16, 2025 Dr. Rigo Trinidad MD Other Provider Active Start: January 16, 2025 Team Status: Active Member Role/Relationship Status Dates Dr. Louis Penn MD Primary Care Provider Active Start: January 17, 2025 Dr. Colt Chappell DO Emergency Provider Active Start: January 17, 2025 Dr. Rigo Trinidad MD Admit Provider Active Start: January 17, 2025 Dr. Rigo Trinidad MD Attending Provider Active Start: January 17, 2025 Dr. Rigo Trinidad MD Other Provider Active Start: January 17, 2025 Team Status: Inactive Member Role/Relationship Status Dates Dr. Louis Penn MD Primary Care Provider Active Start: January 27, 2025 End: January 27, 2025 Dr. Louis Penn MD Referring Provider Active Start: January 27, 2025 End: January 27, 2025 Adwoa Cruz MAINTENANCE MECHANIC ENGINE, MAINTENANCE MECHANIC ENGINE-C Attending Provider Active Start: January 27, 2025 End: January 27, 2025 Team Status: Inactive Member Role/Relationship Status Dates Dr. Louis Penn MD Primary Care Provider Active Start: May 08, 2025 End: May 08, 2025 Dania Edge MAINTENANCE MECHANIC ENGINE, MAINTENANCE MECHANIC ENGINE-C Attending Provider Active S tart: May 08, 2025 End: May 08, 2025 Dania Edge MAINTENANCE MECHANIC ENGINE, MAINTENANCE MECHANIC ENGINE-C Referring Provider Active S tart: May 08, 2025 End: May 08, 2025 Civil Cad Designer Relationship Specialty Start Date End Date Louis Penn MD [address] [facility] [address] [place] [address] PCP - General Family Medicine 04/29/25 Goals (unrecognized section and content) Goals may be documented in a n alternate section Care Team (unrecognized sect ion and content) Care Team Personnel Name: Feli Wilksrdeja Lilly PT Position: P3 Scheduling - Solar Consultant Advanced Member Role: Other Name: OJ MADDOX APRN - TRIM STENCIL MAKER Position: P4 Advanced Practice Nurse Member Role: Primary Care Physician Address: Address: [address] [place] [address] Care Team Related Persons Name: LUZ MARINA MUELLER FOR RECORDS PERTAINING TO PATIENTS WHO ARE OR HAVE BEEN ENROLLED IN A CHEMICAL DEPENDENCY/SUBSTANCEABUSE PROGRAM, SOME INFORMATION MAY BE OMITTED. This clinical summary was aggregated from multiple sources. Caution should be exercised in using it in the provision of clinical care. This summary normalizes information from multiple sources, and as a consequence, information in this document may materially change the coding, format and clinical context of patient data. In addition, data may be omitted in some cases. CLINICAL DECISIONS SHOULD BE BASED ON THE PRIMARY CLINICAL RECORDS. [facility] [employer] [facility]. provides no warranty or guarantee of the accuracy or completeness of information in this document.
[2025-05-16 06:58] LABS: D-Dimer Quantitative (DVT/PE) 0.89 FEU/ug/m (0.27-0.49)
[2025-05-16 07:42] LABS: Anion Gap 12 (5-15); BUN 18 mg/dL (4-19); BUN/Creat Ratio 29.2 RATIO (10-20); Calcium,Total 9.2 mg/dL (7.6-11.0); Carbon Dioxide 21.7 mmol/L (21.0-32.0); Chloride 103 mmol/L (98-108); Estimated Creatinine Clearance 110.12 ml/min (50-250); Glucose 114 mg/dL (70-99); Potassium 4.0 mmol/L (3.3-5.1)
--- NOTE | 2025-05-16 08:29 | CT_ITS ---
PROCEDURE: CTA CHEST W/ CONTRAST 05/16/2025 REASON FOR EXAM: R>L CHEST PAIN, COVID, ELEVATED D-DIMER. History of PE and COPD. TECHNIQUE: CTA CHEST W/WO CONTRAST Multiplanar Sagittal and Coronal images were obtained. CONTRAST: Isovue 370 VOLUME: 100 mL One or more dose reduction techniques were used (e.g., Automated exposure control, adjustment of the mA and/or kV according to patient size, use of iterative reconstruction technique). RADIATION DOSE SUMMARY: CTDlvol: 14.20, 11.39, 14.20 mGy DLP: 931 mGycm FINDINGS: LIMITATIONS: PORTIONS OF THE PATIENT'S CHEST WALL IS OUT OF THE FIELD OF VIEW. STREAK ARTIFACT FROM DENSE SUBCUTANEOUS CONTRAST MATERIAL IN THE LEFT ANTERIOR CHEST WALL. PULMONARY ARTERIES Respiratory motion and heterogeneous opacification limits evaluation of the distal subsegmental pulmonary arteries in both lower lobes. No intraluminal filling defect suspicious for PE in the remaining pulmonary arteries. AORTA No thoracic aortic aneurysm or dissection. Minimal calcified atherosclerosis. LUNGS No focal airspace consolidation. No pulmonary mass. Minimal dependent atelectasis bilaterally. PLEURAL SPACES No pleural effusion. No pneumothorax. HEART Mild cardiomegaly. No significant pericardial effusion. MEDIASTINUM/HILUM No significant lymphadenopathy. CHEST WALL The chest wall is unremarkable. BONES No focal osseous abnormality or acute fracture. Degenerative changes of the spine and both glenohumeral joints. Epidural electrode positioned in the neural canal with the tip at the T8 level. UPPER ABDOMEN Images through the upper abdomen are unremarkable. CT/CTA Chest W/WO Contrast IMPRESSION: No evidence of pulmonary embolism, with limited evaluation of the bilateral low er lobe distal subsegmental pulmonary arteries. Reading Location: [id number]
[2025-05-16 08:38] LABS: Troponin T High Sensitivity < 6 ng/L (<=14)
[2025-05-16 10:05] LABS: Troponin T High Sens 2 HR < 6 ng/L (<=14)
== END 2025-05-16 13:14 | disposition home or self-care (01) ==
PROVIDERS: Emergency Provider Emergency Medicine; PCP Family Medicine; Visit Provider Emergency Medicine
DX: U07.1 COVID-19 (principal); J44.9 Chronic obstructive pulmonary disease, unspecified; E66.01 Morbid (severe) obesity due to excess calories; E11.9 Type 2 diabetes mellitus without complications; R05.9 Cough, unspecified; R79.89 Other specified abnormal findings of blood chemistry; Z87.891 Personal history of nicotine dependence; I10 Essential (primary) hypertension; J20.9 Acute bronchitis, unspecified; Z90.710 Acquired absence of both cervix and uterus; J45.901 Unspecified asthma with (acute) exacerbation; R07.9 Chest pain, unspecified; Z99.81 Dependence on supplemental oxygen; G25.81 Restless legs syndrome; G47.33 Obstructive sleep apnea (adult) (pediatric); Z79.899 Other long term (current) drug therapy; F32.A Depression, unspecified; Z79.51 Long term (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 inhaled steroids; Z79.84 Long term (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 oral hypoglycemic drugs; Z96.652 Presence of left artificial knee joint
CPT/HCPCS: 71045; 71275; 80048; 84484; 85025; 85379; 93005; 94640; 99285; Q9967; A4216

== ENCOUNTER 2025-06-10 22:08 | Emergency (ER) | payer MEDICARE, MEDICAID, SELFPAY ==
[2025-06-10 22:10] VITALS: BP 111/98; PULSE 83; RESP 17; TEMP 37.4; O2SAT 93; BMI 55.7
--- OUTSIDE RECORDS SUMMARY | 2025-06-10 23:47 | XMS RPT_ITS | CCD ---
Author Organization [facility] Care Team Providers Care Infectious Disease Technician Name Role Phone Rowland, Bry Unavailable Unavailable RIGO SHELTON Unavailable Unavailable Physician, PCP Unknown Unavailable Deepaab Rigo Grady Primary Care Provider [phone] Elana Bradley Unavailable Unavailable RIGO SHELTON Admitting Unavaila RIGO Ruiz Attending Unavaila ble RIGO SHELTON Primary Care Unavaila ble [facility] Consulting U RIGO Harrison Attending Unavaila ble RIGO SHELTON Primary Care Unavaila ble RIGO SHELTON Referring Unavaila ble RIGO SHELTON Admelia Unavaila ble [facility] Consulting U DOROTHY Herrera Consulting Unavailabl e RIGO SHELTON Primary Care Unavaila ble LUIS ANTONIO MORGAN Attending Unavail able LUIS ANTONIO MORGAN Admitting Unavail able RIGO SHELTON Admitting Unavaila [...] APRN, CNP Primary Care Prov ider VARSHA SUPERVISOR HAND SILVERING - ADEBAYO, OJ Cochran Primary Care Phys ician Lashaun PT, Vijaya Unavailable Unavailable Varsha PREPARATION PLANT REPAIRER, PREPARATION PLANT REPAIRER-C Oj Thorpe Primary Care Pr ovider Dr. Dewayne Holcomb Referring Provider Dr. Dewayne Holcomb Emergency Provider Dr. Greer Webb Admit Provider Dr. Greer Webb Attending Provider Dr. Greer Webb Other Provider Dr. Laron Campoverde Attending Provider Dr. Laron Campoverde Other Provider Varsha PREPARATION PLANT REPAIRER, PREPARATION PLANT REPAIRER-C Oj Thorpe Primary Care Pr ovider Dr. Mario Marcelo Emergency Provider [phone] Phylicia Hurtado Admit Provider Dr. Phylicia Hurtado Other Provider Dr. Ludwin Lo Attending Provider Dr. Ludwin Lo Other Provider Dr. Mag Cantu Other Provider Dr. Rosenda Freedman Attending Provider Dr. Mag Cantu Attending Provider Dr. Andrea Royal Other Provider [phone] Dr. Andrea Prasad Attending Provider Dr. Kelsey Lima Other Provider Dr. Baljit Feng Attending Provider Dr. Kelsey Lima Attending Provider Dr. Phylicia Hurtado Referring Provider Dr. Eulalio De La Cruz Emergency Provider Dr. Rigo Trinidad Attending Provider Dr. Andrea Royal Referring Provider Dr. Eulalio De La Crzu Referring Provider Varsha PREPARATION PLANT REPAIRER, PREPARATION PLANT REPAIRER-C Oj Thorpe Referring Provi huy Anthony PREPARATION PLANT REPAIRER, PREPARATION PLANT REPAIRER-C Adwoa Attending Provider Dr. David Felipe Emergency Provider Alondra, Dr. Mag Prajapati Admit Provider Dr. Rigo Trinidad Other Provider Dr. Chris Gomez Attending Provider Dr. Laron Campoverde Referring Provider Dr. Louis Martinez Attending Provider Alondra, Dr. Mag Prajapati Referring Provider Oj Maddox Primary Care Provider [phone] Oj Maddox Primary Care Provider VARSHA SUPERVISOR HAND SILVERING - DATA MINING ANALYST, OJ D Attending U navailable VARSHA SUPERVISOR HAND SILVERING - DATA MINING ANALYST, OJ D Primary Care U navailable VARSHA SUPERVISOR HAND SILVERING - DATA MINING ANALYST, OJ D Attending U navailable VARSHA SUPERVISOR HAND SILVERING - DATA MINING ANALYST, OJ D Primary Care U navailable VARSHA SUPERVISOR HAND SILVERING - DATA MINING ANALYST, OJ D Attending U navailable VARSHA SUPERVISOR HAND SILVERING - DATA MINING ANALYST, OJ D Primary Care U navailable VARSHA SUPERVISOR HAND SILVERING - DATA MINING ANALYST, OJ D Attending U navailable VARSHA SUPERVISOR HAND SILVERING - DATA MINING ANALYST, OJ D Primary Care U navailable VARSHA SUPERVISOR HAND SILVERING - DATA MINING ANALYST, OJ D Attending U navailable VARSHA SUPERVISOR HAND SILVERING - DATA MINING ANALYST, OJ D Primary Care U navailable Varsha PREPARATION PLANT REPAIRER, PREPARATION PLANT REPAIRER-C Oj Thorpe Primary Care Pr ovider Dr. [...] Attending Unavailable VARSHA, OJ Primary Care Unavailable NIXON GALLOWAY Consulting Unavailable ILODI, VINH Admitting Unavailable HANS, CRISTIAN Consulting Unavailable VARSHA, OJ Primary Care [...] Primary Care Unavailable JESS, RUSTY Attending Unavailable HANS, CRISTIAN Attending Unavailable VARSHA, OJ Primary Care Unavailable KAEHLER, JENNIFER Attending Unavailable VARSHA, OJ Primary Care Unavailable LUDWIN TITUS Attending Unavailable FISH, BJ Referring Unavailable VARSHA, OJ Primary Care Unavailable FISH, BJ Attending Unavailable VARSHA, OJ Primary Care Unavailable JESS, RUSTY Attending Unavailable VARSHA, OJ Primary Care Unavailable VARSHA, OJ Primary Care Unavailable MORALES, JANI Attending Unavailable VARSHA, OJ Primary Care Unavailable MORALES, JOSE Attending Unavailable Varsha, Oj Primary Care Provider Dr. Louis Penn MD Primary Care Provider Dr. Louis Penn MD Referring Provider Dr. Kayla Alcantara MD Attending Provider Dr. Colt Chappell DO Emergency Provider Amos BORDEN, Dr. Rigo Neil Admit Provider Amos BORDEN, Dr. Rigo Neil Attending Provider Amos BORDEN, Dr. Rigo Neil Other Provider Unavailable Primary Care Provider Unavailabl e MILI OLIVEROS Attending Unavailable Fili BORDEN, Louis Strauss Primary Care Provider [phone] LOLY ORTIZ Attending Unavailable PENNLOUIS LAZCANO Primary Care Unavailable Fili BORDEN, Dr. Gutierrez Primary Care Provider Fili BORDEN, Dr. Gutierrez Referring Provider Anthony PREPARATION PLANT REPAIRER-C, Adwoa Attending Provider Kely PREPARATION PLANT REPAIRER-C, Dania Attending Provider [phone] Kely PREPARATION PLANT REPAIRER-C, Dania Referring Provider Amos BORDEN, Dr. Rigo Neil Other Provider Joce BORDEN, Dr. Koch Emergency Provider MOHAN SAMER N Attending Unavailable MILI OLIVEROS Referring Unavailable PENNLOUIS LAZCANO Primary Care Unavailable ENRIQUE PRESTON Attending Unavailable MOHAN SAMER Kings Referring Unavailable PENN, LOUIS STRAUSS Primary Care Unavailable Kely PREPARATION PLANT REPAIRER, Dania Attending Unavailable Penn, Louis Primary Care Unavailable Kely PREPARATION PLANT REPAIRER, Dania Referring Unavailable Kely PREPARATION PLANT REPAIRER, Dania Attending Unavailable Penn, Louis Primary Care Unavailable Kely PREPARATION PLANT REPAIRER, Dania Referring Unavailable Ifeanyi Gilmore Attending Unavailable Penn, Louis Referring Unavailable Penn, Louis Primary Care Unavailable Penn, Louis Primary Care Unavailable August Hobson Attending Unavailable Rigo Trinidad Admitting Unavailable Rigo Trinidad Attending Unavailable Penn, Louis Primary Care Unavailable Rigo Trinidad Admitting Unavailable Rigo Trinidad Attending Unavailable Rigo Trinidad Consulting Unavailable Penn, Louis Primary Care Unavailable Anthony CHRISTOPHER, Adwoa Attending Unavailable Penn, Louis Primary Care Unavailable Penn, Louis Referring Unavailable Robotham, Kayla Attending Unavailable Penn, Louis Referring Unavailable Penn, Louis Primary Care Unavailable Robotham, Kayla Attending Unavailable Penn, Louis Primary Care Unavailable Penn, Louis Referring Unavailable Dorina Potter Attending Unavailable Penn, Louis Referring Unavailable Penn, Louis Primary Care Unavailable Robotham, Kayla Attending Unavailable Penn, Louis Referring Unavailable Penn, Louis Primary Care Unavailable Allergies Allergy Classification Reported Allergen(s) Allergy Type Date of Onset Reaction(s) Facility [facility] (1 source) amLODIPine Drug Allergy 10-02-19 Swelling [facility] (20 sources) amLODIPine; Translations: [AMLODIPINE] Drug Allergy 10-02-19 Swelling [facility] (16 sources) clonazePAM; Translations: [clonazepam] Drug Allergy 10-08-19 Other (See Comments), Rash [facility] (20 sources) Ketamine; Translations: [ketamine] Drug Allergy 10-08-19 Hallucinations [facility] (2 sources) Morphine; Translations: [morphine] Drug Allergy Apnea (finding) [facility] (20 sources) Vancomycin; Translations: [VANCOMYCIN] Drug Allergy 09-10-20 [facility] (20 sources) cefepime; Translations: [cefepime] Drug Allergy 12-05-19 Itching, Itching (finding) [facility] (20 sources) Clonazepam Allergy to substance 10-08-19 [facility] (20 sources) Lisinopril; Translations: [LISINOPRIL] Propensity to adverse reactions 10-30-[address] [facility] (19 sources) HYDROmorphone; Translations: [HYDROMORPHONE] Drug Allergy 06-25-20 [facility] (13 sources) Prednisone; Translations: [PREDNISONE] Allergy to substance 06-25-20 [facility] (5 sources) Losartan Drug Allergy 07-22-20 [facility] Comment on above: pt states she had a reaction previously to this med and she forgot to have it added to her her allergy list. (6 sources) Lisinopril Drug Allergy 10-30-19 [facility] (2 sources) ALLERGIES NOT ON FILE; Translations: [ALLERGIES NOT ON FILE] Propensity to adverse reactions (disorder) [facility] (2 sources) predniSONE Drug Allergy 06-25-20 Palpitations [facility] Work Phone: (1 source) amLODIPine Drug Allergy 05-16-20 [facility] (1 source) cefepime Drug Allergy 05-16-20 [facility] (1 source) clonazePAM Drug Allergy 05-16-20 [facility] (1 source) HYDROmorphone Drug Allergy 05-16-20 [facility] (1 source) Ketamine Drug Allergy 05-16-20 [facility] (1 source) Lisinopril Drug Allergy 05-16-20 [facility] (1 source) Losartan Drug Allergy 05-16-20 [facility] (1 source) Vancomycin Drug Allergy 05-16-20 [facility] Medications Current Medications Medication Drug Class(es) Dates Sig (Normalized) Sig (Original) acetaminophen 500 mg oral tablet (20 sources) Start: 05-08-2024 take 2 tablets by mouth every eight hours as needed for pain Acetaminophen (Acetaminophen Extra Strength) 500 mg tablet Active 1000 mg PO Q8H as needed for pain May 08, 2024 12:00am Start: 05-29-2023 End: 06-08-2023 take 1 tablet by mouth every four hours acetaminophen (Tylenol) tablet 650 mg Start: 05-29-2023 End: 05-29-2023 acetaminophen (Tylenol) tabl et 1,000 mg Start: 05-22-2023 End: 05-22-2023 acetaminophen (Tylenol) tabl et 1,000 mg Start: 05-08-2023 End: 05-08-2023 acetaminophen (Tylenol) tabl et 1,000 mg Start: 02-22-2023 End: 02-22-2023 acetaminophen (Tylenol) tabl et 1,000 mg Start: 12-04-2022 End: 12-12-2022 take 1 tablet by mouth every four hours as needed for pain and fever and pain and headache acetaminophen (Tylenol) tablet 650 mg Start: 11-27-2022 End: 12-12-2022 take 2 tablets by mouth every eight hours acetaminophen (Tylenol) 500 MG tablet Take 2 tablets (1,000 mg) by mouth in the morning and 2 tablets (1,000 mg) at noon and 2 tablets (1,000 mg) before bedtime. Do all this for 10 days. 30 tablet 0 11/27/2022 12/12/2022 Discontinued (Stop taking at discharge) Start: 11-17-2022 End: 12-07-2022 take 1000 mg by mouth every eight hours Start: 11-02-2022 End: 11-27-2022 take 650 mg by mouth every four hours Start: 10-31-2022 End: 11-02-2022 take 1 tablet by mouth every four hours acetaminophen (Tylenol) tablet 650 mg Start: 01-11-2022 End: 01-11-2022 acetaminophen (TYLENOL) tabl et 1,000 mg Start: 12-19-2021 End: 12-19-2021 acetaminophen (TYLENOL) tabl et 1,000 mg Start: 08-04-2021 End: 08-04-2021 acetaminophen (TYLENOL) tabl et 1,000 mg Start: 08-17-2020 acetaminophen (TYLENOL) tablet 650 mg Start: 08-17-2020 End: 08-17-2020 acetaminophen (TYLENOL) tabl et 1,000 mg Start: 08-06-2020 acetaminophen (TYLENOL) tablet 650 mg Start: 07-27-2020 End: 07-27-2020 acetaminophen (TYLENOL) tabl et 1,000 mg Start: 05-03-2019 650 mg, Oral, EVERY 4 HOURS PRN, Fever, For temp greater than 100.5 F (38 C), headache, Starting 05/03/19 at 2141 Maximum dose of acetaminophen is 4000 mg from all sources in 24 hours. albuterol 0.83 mg/ml inhalation solution (20 sources) beta2-Adrenergic Agonist Start: 07-21-2023 take 1.25 mg by inhalation every four hours as needed for wheezing Albuterol Sulfate 2.5 mg /3 mL (0.083 %) solution for nebulization Active 1.25 mg INHALATION Q4H as needed for sob/wheezing July 21, 2023 12:00am Start: 05-30-2023 End: 06-08-2023 albuterol 108 (90 Base) MCG/ ACT inhaler 2 puff Start: 04-24-2023 take 1 dose by inhal ation twice daily as needed albuterol 2.5 mg/3 mL (0.083%) inhalation solution Dose : 2.5 mg = 3 mL, Inhalation, BID, PRN for wheezing, # 540 mL, 1 Refill(s), Pharmacy: [facility], 167, cm, 09/26/22 9:51:00 EST, Height, kg, 04/24/23 8:39:00 EDT, Dosing Weight Start Date: 04/24/23 Status: Ordered Start: 04-24-2023 End: 10-21-2023 take 2 puff(s) by inhalation four times daily as needed for wheezing Ventolin HFA MDI (90 mcg/inh) inhalation aerosol 2 puff(s), Inhalation, QID, PRN as needed for wheezing, # 3 EA, 1 Refill(s), Pharmacy: [facility], Asthma, 167, cm, 09/26/22 9:51:00 EST, Height, kg, 04/24/23 8:39:00 EDT, Dosing Weight Start Date: 04/24/23 Stop Date: 10/21/23 Status: Ordered Start: 12-04-2022 End: 12-12-2022 take 2 puff(s) by inhalation every four hours as needed for wheezing 2 puff, Inhalation, Every 4 hours PRN, wheezing, Starting on Sun12/04/22 at 0044 Start: 11-13-2022 End: 11-27-2022 2.5 mg, Nebulization, Every 4 hours PRN, wheezing, Starting on Sun11/13/22 at 0745 Start: 11-10-2022 End: 11-13-2022 2.5 mg, Nebulization, 4 time s daily, First dose on Sun11/10/22 at 2000 Start: 11-01-2022 End: 11-02-2022 albuterol (2.5 MG/3ML) 0.083 % nebulizer solution 2.5 mg Start: 03-23-2022 take 2 puff(s) by in halation four times daily as needed for wheezing albuterol 108 (90 Base) MCG/ACT inhaler INHALE 2 PUFFS FOUR TIMES DAILY NEEDED FOR WHEEZING 03/23/2022 Active Start: 03-23-2022 Start: 03-23-2022 End: 12-12-2022 albuterol (2.5 MG/3ML) 0.083 % nebulizer solution Take 2.5 mg by nebulization 2 times daily as needed. 0 03/23/2022 12/12/2022 Discontinued (Stop taking at discharge) Start: 03-23-2022 albuterol (2.5 MG/3ML) 0.083% nebulizer solution 2.5 mg. 0 03/23/2022 Suspended Start: 03-23-2022 take 1 dose by inhal ation twice daily as needed albuterol 2.5 mg/3 mL (0.083%) inhalation solution Dose : 2.5 mg = 3 mL, Inhalation, BID, PRN for wheezing, # 540 mL, 2 Refill(s), Pharmacy: [id number], 167, cm, 03/23/22 13:02:00 EDT, Height, kg, 03/23/22 13:02:00 EDT, Dosing Weight Start Date: 03/23/22 Status: Ordered Start: 03-23-2022 End: 12-18-2022 take 2 puff(s) by inhalation four times daily as needed for wheezing Ventolin HFA MDI (90 mcg/inh) inhalation aerosol 2 puff(s), Inhalation, QID, PRN as needed for wheezing, # 3 EA, 2 Refill(s), Pharmacy: [id number], Asthma, 167, cm, 03/23/22 13:02:00 EDT, Height, kg, 03/23/22 13:02:00 EDT, Dosing Weight Start Date: 03/23/22 Stop Date: 12/18/22 Status: Ordered Start: 02-24-2021 End: 11-21-2021 take 2 puff(s) by inhalation four times daily as needed for wheezing Ventolin HFA MDI (90 mcg/inh) inhalation aerosol 2 puff(s), Inhalation, QID, PRN as needed for wheezing, # 3 EA, 2 Refill(s), Pharmacy: [id number], Asthma, 170.2, cm, 01/28/21 10:18:00 EDT, Height, kg, 01/28/21 10:18:00 EDT, Dosing Weight Start Date: 02/24/21 Stop Date: 11/21/21 Status: Ordered Start: 10-16-2019 take 1 dose by inhal ation twice daily as needed albuterol 2.5 mg/3 mL (0.083%) inhalation solution Dose : 2.5 mg = 3 mL, Inhalation, BID, PRN for wheezing, # 540 mL, 3 Refill(s), Pharmacy: [facility] Start Date: 10/16/19 Status: Ordered Start: 09-22-2019 End: 05-11-2021 Albuterol Sulfate 90 mcg/act uation HFA aerosol inhaler Active 2 NMA INHALATION EVERY 6 HOURS as needed for shortness of breath or wheezing 8.5 May 11, 2021 12:00am administer with spacer Start: 09-22-2019 End: 05-11-2021 take 1 puff(s) by inhalation every six hours Albuterol Sulfate Active 2 PUFF INHALATION EVERY 6 HOURS 8.May 11, 2021 12:00am administer with spacer Start: 06-13-2017 End: 07-24-2017 take 2.5 mg by inhalation every four hours as needed for wheezing Albuterol Sulfate 2.5 MG/3 ML Vial.Neb. Discontinued 2.5 mg INHALATION EVERY 4 HOURS NEEDED June 13, 2017 12:00am July 24, 2017 10:17am Use q4 hours and PRN for wheezing Start: 08-11-2016 take 2 puff(s) by mo uth every four hours as needed VENTOLIN HFA 108 (90 BASE) MCG/ACT inhaler INHALE 2 PUFFS PO Q 4 H PRN 11 08/11/2016 Active Start: 08-11-2016 End: 11-02-2022 take 2 puff(s) by mouth every four hours as needed albuterol 108 (90 Base) MCG/ACT inhaler INHALE 2 PUFFS PO Q 4 H PRN 0 08/11/2016 11/02/2022 Discontinued (Stop taking at discharge) Start: 08-11-2016 take 2 puff(s) by mo uth every four hours as needed VENTOLIN HFA 108 (90 BASE) MCG/ACT inhaler INHALE 2 PUFFS PO Q 4 H PRN 11 08/11/2016 Suspended Start: 06-06-2014 End: 06-01-2015 take 2.5 mg by inhalation every four hours as needed for wheezing Albuterol Sulfate 2.5 MG/3 ML Vial.Neb. Discontinued 2.5 mg INHALATION EVERY 4 HOURS NEEDED as needed for Sob &/Or Wheezing June 06, 2014 12:00am June 01, 2015 10:49am take 0.63 mg by inha lation every four hours as needed albuterol 0.63 mg/3 mL nebulizer solution Take 3 mL (0.63 mg) by nebulization every 4 hours if needed for wheezing. Active alteplase (CATHFLO) injectio n 1 mg (2 sources) Start: 11-13-2021 End: 11-13-2021 alteplase (CATHFLO) injectio n 1 mg Start: 11-13-2021 End: 11-13-2021 alteplase (CATHFLO) injectio n 1 mg amoxicillin 875 mg / clavulanate 125 mg oral tablet (2 sources) Penicillin-class Antibacterial Start: 05-09-2019 End: 05-11-2019 take 1 tablet by mouth every twelve hours amoxicillin-clavulanate (AUGMENTIN) 875-125 MG per tablet Take 1 tablet by mouth every 12 hours for 2 days 20 tablet 0 05/09/2019 05/11/2019 Active Start: 05-08-2019 End: 05-11-2019 amoxicillin-clavulanate (AUG MENTIN) 875-125 MG per tablet 1 tablet aspirin 81 mg delayed release oral tablet (20 sources) Platelet Aggregation Inhibitor, Nonsteroidal Anti-inflammatory Drug Start: 05-08-2023 End: 07-08-2023 take 1 tablet by mouth every twelve hours aspirin 81 MG EC tablet Indications: DVT prophylaxis after surgery Take 1 tablet (81 mg) by mouth in the morning and 1 tablet (81 mg) in the evening. 60 tablet 0 06/08/2023 07/08/2023 Active Start: 11-22-2022 End: 11-27-2022 take 81 mg by mouth once daily 81 mg, Oral, Daily, Fir st dose on Sun11/22/22 at 0900, Phase II/On Unit Do not crush, chew, or split. Start: 11-21-2021 End: 12-19-2021 take 1 tablet by mouth once daily aspirin 81 MG chewable tablet Take 1 tablet by mouth daily 30 tablet 0 11/21/2021 12/19/2021 Discontinued (LIST CLEANUP) Start: 11-02-2021 take 1 tablet by uriel th once daily aspirin 81 MG chewable tablet Take 1 tablet by mouth daily 30 tablet 3 11/02/2021 Active Start: 08-04-2021 take 1 tablet by uriel th once daily aspirin EC 81 MG EC tablet Indications: Tear of peroneal tendon, left, subsequent encounter Take 1 tablet by mouth daily 30 tablet 0 08/04/2021 Active Start: 08-18-2020 aspirin EC tab let 81 mg Start: 08-08-2020 take 81 mg by mouth once daily 81 mg, Oral, DAILY, First dose on 08/08/20 at 0900 Start: 07-27-2020 End: 07-28-2021 take 1 tablet by mouth once daily aspirin EC 81 MG EC tablet 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) Take 1 tablet by mouth daily 30 tablet 0 07/27/2020 07/28/2021 Discontinued (Therapy completed) Start: 02-12-2019 take 1 tablet by uriel th once daily aspirin EC 81 MG EC tablet Take 1 tablet by mouth daily 30 tablet 0 02/12/2019 Active Start: 11-05-2018 End: 12-05-2018 aspirin EC tablet 325 mg atorvastatin 10 mg oral tablet (6 sources) HMG-CoA Reductase Inhibitor Start: 07-21-2023 take 1 tablet by mouth at bedtime Atorvastatin 10 mg tablet Active 10 mg PO AT BEDTIME July 21, 2023 12:00am cholesterol benzonatate 100 mg oral capsule (1 source) Non-narcotic Antitussive Start: 10-03-2021 take 100 mg by mouth every four hours as needed Benzonatate Active 100 MG PO EVERY 4 HOURS NEEDED 0 October 03, 2021 9:49am betamethasone 3 mg/ml / betamethasone acetate 3 mg/ml injectable suspension (13 sources) Corticosteroid Start: 02-12-2023 betamethasone acetate-betamethas one sodium phosphate (Celestone) injection 6 mg Start: 01-30-2023 End: 01-30-2023 betamethasone acetate-betame thasone sodium phosphate (Celestone) injection 6 mg Start: 01-15-2023 End: 01-15-2023 betamethasone acetate-betame thasone sodium phosphate (Celestone) injection 6 mg Start: 12-20-2022 End: 12-20-2022 betamethasone acetate-betame thasone sodium phosphate (Celestone) injection 6 mg Start: 12-20-2022 End: 12-20-2022 betamethasone acetate-betame thasone sodium phosphate (Celestone) injection 6 mg bisacodyl 10 mg rectal suppository (9 sources) Stimulant Laxative Start: 01-14-2025 Bisacodyl 1 0 mg suppository Active 10 mg RC AT BEDTIME as needed for constipation January 14, 2025 12:00am USE NEEDED IF NO BM 8 HOURS AFTER MOM ADMINISTRATION Start: 11-18-2022 End: 11-27-2022 take 5 mg by mouth once daily 5 mg, Oral, Daily, First dose on 11/18/22 at 1030 Do not give within 1 hour of antacids, milk, or dairy products. Do not crush, chew, or split. Start: 11-18-2022 End: 11-18-2022 take 10 mg rectal route once 10 mg, Rectal, Once, On S at 11/18/22 at 0600, For 1 dose budesonide 0.125 mg/ml inhalation suspension (20 sources) Corticosteroid Start: 06-29-2023 budesonide (Pu lmicort) 0.25 MG/2ML nebulizer solution Take 2 mL (0.25 mg) by nebulization in the morning and 2 mL (0.25 mg) in the evening. 60 mL 11 06/29/2023 Active Start: 05-29-2023 End: 06-08-2023 0.25 mg, Nebulization, 2 adi es daily PRN, as prescribed, Starting on Sun05/29/23 at 1836 NOTE DOSE : use 1/2 of the 0.5 mg vial Rinse mouth with water after use to reduce aftertaste and incidence of candidiasis. Do not swallow. Start: 04-24-2023 take 1 dose by inhalation twice daily as needed budesonide 0.25 mg/2 mL inhalation suspe nsion Dose : 0.25 mg = 2 mL, Inhalation, BID, As needed, # 360 mL, 1 Refill(s), [facility], Chronic coughing Asthma exacerbation, 167, cm, 09/26/22 9:51:00 EST, Height, kg, 04/24/23 8:39:00 EDT, Dosing Weight Start Date: 04/24/23 Status: Ordered Start: 12-04-2022 End: 12-11-2022 take 0.5 mg by mouth once daily 0.5 mg, Nebulization, Daily, First dose on Sun12/04/22 at 0800 Rinse mouth with water after use to reduce aftertaste and incidence of candidiasis. Do not swallow. Start: 11-13-2022 End: 11-27-2022 take 0.5 mg by mouth twice daily 0.5 mg, Nebulization, 2 times daily PRN, PRN, Starting on Sun11/13/22 at 0745 Rinse mouth with water after use to reduce aftertaste and incidence of candidiasis. Do not swallow. Start: 11-10-2022 End: 11-13-2022 take 0.5 mg by mouth once daily 0.5 mg, Nebulization, Daily, First dose on Sun11/10/22 at 1900 Rinse mouth with water after use to reduce aftertaste and incidence of candidiasis. Do not swallow. Start: 03-23-2022 take 1 dose by inhalation twice daily as needed budesonide 0.25 mg/2 mL inhalation suspe nsion Dose : 0.25 mg = 2 mL, Inhalation, BID, As needed, # 360 mL, 1 Refill(s), Pharmacy: [id number], Chronic coughing Asthma exacerbation, 167, cm, 03/23/22 13:02:00 EDT, Height, kg, 03/23/22 13:02:00 EDT, Dosing Weight Start Date: 03/23/22 Status: Ordered Start: 12-23-2021 budesonide (Pu lmicort) 0.25 MG/2ML nebulizer solution Take 0.25 mg by nebulization 2 times daily as needed. 0 12/23/2021 Active Start: 12-23-2021 budesonide (Pu lmicort) 0.25 MG/2ML nebulizer solution Start: 09-06-2021 End: 11-05-2021 take 1 dose by inhalation twice daily as needed budesonide 0.25 mg/2 mL inhalation suspe nsion Dose : 0.25 mg = 2 mL, Inhalation, BID, As needed, # 120 mL, 1 Refill(s), Pharmacy: [id number], Chronic coughing Asthma exacerbation, 170.2, cm, 09/06/21 14:36:00 EST, Height, kg, 09/06/21 14:36:00 EST, Dosing Weight Start Date: 09/06/21 Stop Date: 11/05/21 Status: Ordered 60 actuat budesonide 0.16 mg/actuat / formoterol fumarate 0.0045 mg/actuat metered dose inhaler (20 sources) Corticosteroid, beta2-Adrenergic Agonist Start: 12-12-2022 take 2 puff(s) by inhalation in the morning budesonide-formoterol (Symbicort) 160-4.5 MCG/ACT inhaler Inhale 2 puffs in the morning and 2 puffs in the evening. 1 each 1 12/12/2022 Active Start: 10-16-2022 End: 05-06-2024 Budesonide-Formoterol (Symbi marco) 160-4.5 mcg/actuation HFA aerosol inhaler Discontinued 2 NMA INHALATION TWICE A DAY October 16, 2022 2:56am May 06, 2024 9:14am asthma administer with spacer, rinse mouth after each use Start: 10-16-2022 End: 05-06-2024 Budesonide-Formoterol (Symbi marco) 160-4.5 mcg/actuation HFA aerosol inhaler Discontinued 2 NMA INHALATION TWICE A DAY October 16, 2022 2:56am May 06, 2024 9:14am administer with spacer, rinse mouth after each use Start: 10-16-2022 take 1 puff(s) by mo ut twice daily Budesonide-Formoterol (Symbicort) 160-4.5 mcg/actuation HFA aerosol inhaler Active 2 PUFF INHALATION TWICE A DAY October 16, 2022 2:56am administer with spacer, rinse mouth after each use Start: 10-16-2022 take 1 puff(s) by mo uth twice daily Budesonide-Formoterol (Symbicort) 160-4.5 mcg/actuation HFA aerosol inhaler Active 2 PUFF INHALATION TWICE A DAY October 16, 2022 1:56am administer with spacer, rinse mouth after each use Start: 10-04-2022 End: 10-16-2022 Budesonide-Formoterol (Symbi marco) 160-4.5 mcg/actuation HFA aerosol inhaler Discontinued 2 NMA INHALATION TWICE A DAY 3 3 October 04, 2022 1:00am October 16, 2022 2:56am administer with spacer, rinse mouth after each use Start: 10-04-2022 End: 10-16-2022 Budesonide-Formoterol (Symbi marco) 160-4.5 mcg/actuation HFA aerosol inhaler Discontinued 2 NMA INHALATION TWICE A DAY 3 October 04, 2022 1:00am October 16, 2022 2:56am administer with spacer, rinse mouth after each use Start: 10-04-2022 End: 10-16-2022 take 1 puff(s) by mouth twice daily Budesonide-Formoterol (Symbicort) 160-4.5 mcg/actuation HFA aerosol inhaler Discontinued 2 PUFF INHALATION TWICE A DAY 3 October 04, 2022 1:00am October 16, 2022 2:56am administer with spacer, rinse mouth after each use Start: 10-04-2022 End: 10-16-2022 take 1 puff(s) by mouth twice daily Budesonide-Formoterol (Symbicort) 160-4.5 mcg/actuation HFA aerosol inhaler Discontinued 2 PUFF INHALATION TWICE A DAY 3 October 04, 2022 12:00am October 16, 2022 1:56am administer with spacer, rinse mouth after each use Start: 01-28-2020 End: 05-11-2021 Budesonide-Formoterol (Symbi marco) 160-4.5 mcg/actuation HFA aerosol inhaler Discontinued 2 NMA INHALATION TWICE A DAY 1 3 January 28, 2020 12:00am May 11, 2021 11:42am administer with spacer, rinse mouth after each use Start: 01-28-2020 End: 05-11-2021 take 1 puff(s) by mouth twice daily Budesonide-Formoterol (Symbicort) 160-4.5 mcg/actuation HFA aerosol inhaler Discontinued 2 PUFF INHALATION TWICE A DAY 1 January 28, 2020 12:00am May 11, 2021 11:42am administer with spacer, rinse mouth after each use End: 12-04-2022 take 2 puff(s) by inhalation in the morning budesonide-formoterol (Symbicort) 160-4.5 MCG/ACT inhaler Inhale 2 puffs in the morning and 2 puffs in the evening. 0 12/04/2022 Discontinued (Med list cleanup) buprenorphine 0.3 mg buccal film (10 sources) Partial Opioid Agonist Start: 01-14-2025 Buprenorphine Hcl (Belbuca) 300 mcg film Active 300 ug BUCCAL TWICE A DAY January 14, 2025 12:00am Start: 05-06-2024 End: 01-14-2025 Buprenorphine Hcl 150 mcg fi lm Discontinued 150 ug BUCCAL Q12H May 06, 2024 12:00am January 14, 2025 9:34am buprenorphine (B elbuca) [address] 1 Film (300 mcg) into mouth between cheek and gum every 12 hours. Active End: 11-01-2018 buprenorphine (BUTRANS) 10 m cg/hour transdermal patch Indications: Chronic dania pain syndrome Place 1 patch on the skin every 7 days . 0 11/01/2018 Discontinued busPIRone hydrochloride 10 mg oral tablet (1 source) Start: 10-03-2021 take 10 mg by mouth twice daily Buspirone Active 10 MG PO TWICE A DAY October 03, 2021 9:54am ceFAZolin (7 sources) Cephalosporin Antibacterial Start: 10-31-2021 End: 11-25-2021 take 2 g intravenously every eight hours CEFAZOLIN SODIUM IV Infuse 2 g intravenously every 8 hours 0 10/31/2021 11/25/2021 Active Start: 12-04-2018 End: 12-04-2018 ceFAZolin (ANCEF) IVPB 2 g (premix) Start: 11-04-2018 End: 12-16-2018 take 2000 mg intravenous route every eight hours ceFAZolin in dextrose, iso-os, (ANCEF) 2 gram/100 mL PgBk Infuse 100 mL (2,000 mg total) into a venous catheter every 8 (eight) hours . 50 mL 0 11/05/2018 12/16/2018 Active Start: 11-01-2018 End: 11-05-2018 take 2000 mg intravenous route every eight hours ceFAZolin (ANCEF) IVPB 2 g (premix) cetirizine hydrochloride 5 mg oral tablet (1 source) Histamine-1 Receptor Antagonist Start: 05-04-2019 take 10 mg by mouth once daily 10 mg, Oral, DAILY, First dose on 05/04/19 at 1315 Substituted for Loratadine (CLARITIN). cholecalciferol 1.25 mg oral capsule (20 sources) Vitamin D Start: 04-24-2023 End: 10-21-2023 cholecalciferol 1250 mcg (50,000 intl units) oral capsule Dose : 50,000 International_Unit = 1 cap(s), Oral, qWeek, # 13 cap(s), 1 Refill(s), Pharmacy: [facility], Vitamin D deficiency, 167, cm, 09/26/22 9:51:00 EST, Height, kg, 04/24/23 8:39:00 EDT, Dosing Weight Start Date: 04/24/23 Stop Date: 10/21/23 Status: Ordered Start: 11-03-2022 cholecalcifero l (Vitamin D3) 1.25 MG (73002 UT) tablet Take 1 tablet by mouth. 11/03/2022 Active Start: 08-31-2022 take 1 capsule by mouth once C holecalciferol (Vitamin D3) 1,250 mcg (50,000 unit) capsule Active 1250 ug PO MO August 31, 2022 1:00am SUPPLEMENT Start: 03-23-2022 End: 01-12-2023 take 1 capsule by mouth every week cholecalciferol (Vitamin D-3) 1.25 MG (35415 UT) capsule Take 50,000 Units by mouth 1 (one) time per week. On Sunday 0 03/23/2022 01/12/2023 Discontinued (Therapy completed) Start: 03-23-2022 End: 09-19-2022 cholecalciferol 1250 mcg (50 ,000 intl units) oral capsule Dose : 50,000 International_Unit = 1 cap(s), Oral, qWeek, # 13 cap(s), 1 Refill(s), Pharmacy: [id number], Vitamin D deficiency, 167, cm, 03/23/22 13:02:00 EDT, Height, kg, 03/23/22 13:02:00 EDT, Dosing Weight Start Date: 03/23/22 Stop Date: 09/19/22 Status: Ordered Start: 01-28-2021 End: 10-25-2021 cholecalciferol 50,000 intl units (1250 mcg) oral capsule Dose : 50,000 International_Unit = 1 cap(s), Oral, qWeek, # 13 cap(s), 2 Refill(s), Pharmacy: [facility], Vitamin D deficiency, 170.2, cm, 01/28/21 10:18:00 EDT, Height, kg, 01/28/21 10:18:00 EDT, Dosing Weight Start Date: 01/28/21 Stop Date: 10/25/21 Status: Ordered take 1 tablet by uriel once daily cholecalciferol (Vitamin D3) 25 mcg (1,000 units) tablet Take 1 tablet (25 mcg) by mouth once daily. Active Cholecalciferol (VITAMIN D3) 5000 units TABS Take by mouth daily 0 Active DAPTOmycin (12 sources) Lipopeptide Antibacterial Start: 06-06-2023 End: 07-12-2023 take 550 mg intravenously once daily DAPTOMYCIN IV Infuse 550 mg into a venous catheter daily. 0 06/06/2023 07/12/2023 Active Start: 12-12-2022 End: 01-16-2023 DAPTOmycin (Cubicin) 500 MG injection Infuse 900 mg into a venous catheter Every 24 hours. Stop date for antibiotic is 01/16/2023 [id number] mg 1 12/12/2022 01/16/2023 Active dexamethasone 6 mg oral tablet (2 sources) Corticosteroid Start: 05-16-2025 take 1 tablet by mouth once daily Dexamethasone 6 mg tablet Active 6 mg PO DAILY 4 May 16, 2025 12:00am start 05/17 Start: 05-01-2023 End: 05-08-2023 dexAMETHasone 6 mg oral tabl et Dose : 6 mg = 1 tab(s), Oral, qDay, X 7 day(s), # 7 tab(s), 0 Refill(s), 05/08/23 1:48:00 PM EDT, Pharmacy: [facility], Asthma, 167, cm, 09/26/22 9:51:00 EST, Height, kg, 05/01/23 13:29:00 EDT, Dosing Weight Start Date: 05/01/23 Stop Date: 05/08/23 Status: Ordered dextromethorphan hydrobromide 3 mg/ml / promethazine hydrochloride 1.25 mg/ml oral solution (6 sources) Phenothiazine, Uncompetitive C-wpnlwn-E-aspartate Receptor Antagonist, Sigma-1 Agonist Start: 07-25-2022 dextromethorphan-promethazin e 15 mg-6.25 mg/5 mL oral syrup Dose = 5 mL, Oral, q6hr, TAKE 5 (FIVE) ml BY MOUTH EVERY 6 HOURS NEEDED FOR COUGH. max 6 (SIX) doses per day., # 5 mL, 0 Refill(s), Pharmacy: [id number], 167, cm, 06/26/22 11:26:00 EDT, Height, kg, 06/26/22 11:26:00 EDT, Dosing Weight Start Date: 07/25/22 Status: Ordered Start: 04-09-2020 End: 08-17-2020 promethazine-dextromethorpha n (PROMETHAZINE-DM) 6.25-15 MG/5ML syrup as needed 0 04/09/2020 08/17/2020 Discontinued diphenhydrAMINE hydrochloride 25 mg oral tablet (18 sources) Histamine-1 Receptor Antagonist Start: 01-14-2025 take 1 tablet by mouth every four hours as needed Diphenhydramine Hcl (Benadryl Allergy) 25 mg tablet Active 25 mg PO Q4H as needed for allergic reaction January 14, 2025 12:00am Start: 05-30-2023 End: 06-08-2023 diphenhydrAMINE (BENADryl) i njection 25 mg Start: 05-22-2023 End: 05-22-2023 diphenhydrAMINE (BENADryl) i njection 12.5 mg Start: 05-08-2023 End: 05-08-2023 diphenhydrAMINE (BENADryl) i njection 12.5 mg Start: 02-22-2023 End: 02-28-2023 diphenhydrAMINE (BENADryl) i njection 12.5 mg Start: 12-04-2022 End: 12-04-2022 diphenhydrAMINE (BENADryl) i njection 50 mg Start: 01-11-2022 End: 01-11-2022 diphenhydrAMINE (BENADRYL) i njection 12.5 mg Start: 12-19-2021 End: 12-19-2021 diphenhydrAMINE (BENADRYL) i njection 12.5 mg Start: 08-04-2021 End: 08-04-2021 diphenhydrAMINE (BENADRYL) i njection 12.5 mg Start: 07-27-2020 End: 07-27-2020 diphenhydrAMINE (BENADRYL) i njection 12.5 mg Start: 07-08-2020 End: 07-08-2020 diphenhydrAMINE (BENADRYL) i njection 12.5 mg take 1 tablet by uriel th four times daily as needed diphenhydrAMINE (Sominex) 25 mg tablet Take 1 tablet (25 mg) by mouth 4 times a day as needed for allergies. Active docusate sodium 100 mg oral capsule (20 sources) Start: 05-08-2023 End: 06-18-2023 take 100 mg by mouth twice daily 100 mg, Oral, 2 times daily, First dose on Sun05/29/23 at 2100 Do not crush or break. Start: 07-08-2020 End: 08-17-2020 take 1 capsule by mouth twice daily as needed for constipation docusate sodium (COLACE) 100 MG capsule Take 1 capsule by mouth 2 times daily as needed for Constipation 60 capsule 0 07/08/2020 08/17/2020 Discontinued Start: 04-29-2019 take 1 capsule by mouth once d aily Docusate Sodium (Colace) 100 mg capsule Active 100 mg PO DAILY July 21, 2023 12:00am constipation docusate sodium 50 mg / daniel diaz, [facility] 8.6 mg oral tablet (20 sources) Start: 11-27-2022 End: 11-27-2023 Start: 11-15-2022 End: 11-27-2023 take 2 tablets by mouth once daily senna-docusate sodium (Senokot-S) 8.6-50 MG tablet Take 2 tablets by mouth Nightly. 60 tablet 11 11/27/2022 11/27/2023 Active Start: 11-04-2018 End: 11-05-2018 take 1 tablet by mouth twice daily 1 tablet, Oral, 2 times daily, First dose on Sun11/04/18 at 2100 NOT for abdominal surgery patients. Hold for loose stools. Do Not Crush or Chew if administering orally due to bitter taste. May be crushed if given via tube. FeroSul 325 mg (65 mg elemen sarah iron) oral tablet (1 source) Start: 01-16-2023 FeroSul 325 mg (65 mg elemental iron) oral tablet Dose : 325 mg = 1 tab(s), Oral, BID, # 90 tab(s), 0 Refill(s) Start Date: 01/16/23 Status: Ordered ferrous sulfate 325 mg oral tablet (20 sources) Start: 12-13-2022 End: 12-12-2022 ferrous sulfate tablet 325 m g Start: 12-13-2022 End: 12-12-2022 ferrous sulfate tablet 325 m g Start: 10-20-2022 End: 11-28-2023 Ferrous Sulfate (Ferosul) 32 5 mg (65 mg iron) Tablet Discontinued 325 mg PO 1200,1700 60 30 0 October 20, 2022 1:00am July 20, 2023 9:48pm Start: 10-20-2022 End: 12-13-2023 take 1 tablet by mouth once daily at breakfast ferrous sulfate 325 (65 Fe) MG tablet Take 1 tablet (325 mg) by mouth daily (with breakfast). Do not start before December 13, 2022. 30 tablet 0 12/13/2022 12/13/2023 Active Fluticasone Propion-Salmeterol (6 sources) Corticosteroid, beta2-Adrenergic Agonist Start: 07-21-2023 Fluticasone Propion-Salmeterol (Advair Diskus) 250-50 mcg/dose blister with device Active 1 NMA INHALATION TWICE A DAY July 21, 2023 12:00am copd Start: 07-21-2023 Fluticasone Pr opion-Salmeterol (Advair Diskus) 250-50 mcg/dose blister with device Active 1 NMA INHALATION TWICE A DAY July 21, 2023 12:00am Start: 07-21-2023 Fluticasone Pr opion-Salmeterol (Advair Diskus) 250-50 mcg/dose blister with device Active 1 INH INHALATION TWICE A DAY July 21, 2023 12:00am take 1 puff(s) by mo uth twice daily fluticasone propion-salmeteroL (Advair Diskus) 250-50 mcg/dose diskus inhaler Indications: bronchospasm prevention with COPD Inhale 1 puff 2 times a day. Rinse mouth with water after use to reduce aftertaste and incidence of candidiasis. Do not swallow. Active gabapentin 300 mg oral capsule (20 sources) Anti-epileptic Agent Start: 01-14-2025 take 2 capsules by mouth at bedtime for pain Gabapentin 300 mg capsule Active 600 mg PO AT BEDTIME January 14, 2025 12:00am FOR PHANTOM PAIN Start: 07-21-2023 take 300 mg by mouth twice daily Gabapentin Active 300 MG PO TWICE A DAY July 21, 2023 12:00am Start: 05-29-2023 gabapentin (Ne urontin) capsule 100 mg Start: 05-08-2023 gabapentin (Ne urontin) capsule 100 mg Start: 11-25-2022 take 200 mg by mouth once 200 mg, Oral, Once, On Sun11/25/22 at 1845, For 1 dose Start: 11-17-2022 End: 11-27-2022 take 100 mg by mouth three times daily 100 mg, Oral, 3 times daily, First dose on Sun11/17/22 at 1400 Start: 11-02-2022 End: 07-23-2023 take 1 capsule by mouth once daily Gabapentin 300 mg capsule Active 300 mg PO DAILY July 21, 2023 12:00am phantom pain Start: 10-31-2022 End: 12-02-2022 Start: 11-21-2021 End: 12-22-2021 take 1 tablet by mouth three times daily gabapentin (NEURONTIN) 600 MG tablet Indications: Tear of peroneal tendon, left, initial encounter Take 1 tablet by mouth 3 times daily for 31 days. 90 tablet 3 11/21/2021 Suspended Start: 07-11-2021 End: 08-11-2021 take 1 tablet by mouth three times daily gabapentin (NEURONTIN) 600 MG tablet Indications: Tear of peroneal tendon, left, initial encounter Take 1 tablet by mouth 3 times daily for 31 days. 90 tablet 3 07/11/2021 Active Start: 08-18-2020 gabapentin (NE URONTIN) capsule 600 mg Start: 09-20-2019 End: 03-09-2022 take 1 tablet by mouth twice daily Gabapentin 600 MG tablet Discontinued 600 mg PO TWICE A DAY September 20, 2019 1:00am March 09, 2022 1:20pm nerve pain Start: 05-04-2019 End: 05-17-2019 take 1 capsule by mouth twice daily gabapentin (NEURONTIN) 300 MG capsule Take 1 capsule by mouth 2 times daily for 8 days. 10 capsule 0 05/09/2019 Active Start: 12-04-2018 End: 12-04-2018 take 300 mg by mouth every eight hours 300 mg, Oral, Every 8 hours scheduled, First dose on Sun12/04/18 at 0625 Start: 11-02-2018 End: 11-05-2018 gabapentin (NEURONTIN) capsu le 900 mg Start: 11-01-2018 End: 11-05-2018 take 900 mg by mouth once daily in the morning, then take 600 mg by mouth at bedtime 600 mg, Oral, At bedtime, First dose on Sun11/01/18 at 2100 Patient reported to take 900 mg every morning and 600 mg at bedtime Start: 06-06-2018 End: 01-22-2019 gabapentin 300 mg oral capsu le Dose : 300 mg = 1 cap(s), Oral, 5x/Day, 0 Refill(s) Start Date: 06/06/18 Stop Date: 01/22/19 Status: Ordered Start: 02-09-2017 End: 05-09-2019 gabapentin (NEURONTIN) 300 M G capsule 900mg every morning, 600mg nightly 2 02/09/2017 05/09/2019 Discontinued (Stop Taking at Discharge) Start: 01-16-2014 End: 06-09-2014 Gabapentin 800 MG tablet Discontinued 1 {tbl} PO THREE TIMES A DAY January 16, 2014 12:00am June 09, 2014 8:34am take 1 tablet by uriel th once daily at bedtime gabapentin (Neurontin) 600 mg tablet Take 1 tablet (600 mg) by mouth once daily at bedtime. Active take 1 capsule by mo uth five times daily gabapentin (NEURONTIN) 300 MG capsule Indications: Chronic regional pain syndrome Take 300 mg by mouth 5 (five) times a day Reasons: Chronic regional pain syndrome. 0 Active take 2 tablets by mo uth every eight hours gabapentin (NEURONTIN) 300 MG capsule Indications: Chronic regional pain syndrome Take 300 mg by mouth every 8 (eight) hours TAKES 3 TABS AM AND 2 TABS AT NIGHT . 0 Active 12 hr guaiFENesin 600 mg extended release oral tablet (9 sources) Start: 01-14-2025 take 100 mg by mouth every six hours as needed for cough Guaifenesin (Adult Tussin Chest Congestion) 100 mg/5 mL liquid Active 100 mg PO EVERY 6 HOURS as needed for cough January 14, 2025 12:00am Start: 01-14-2025 take 1 tablet by uriel th twice daily as needed for congestion, then take 1 tablet by mouth every twelve hours as needed for congestion Guaifenesin (Mucinex) 600 mg tablet extended release 12hr Active 600 mg PO TWICE A DAY as needed for congestion January 14, 2025 12:00am Start: 01-14-2025 take 200 mg by mouth every six hours as needed for cough Guaifenesin (Adult Tussin Chest Congestion) 100 mg/5 mL liquid Active 200 mg PO EVERY 6 HOURS as needed for cough January 14, 2025 12:00am take 10 mL by mouth four times daily as needed for cough guaiFENesin (Robitussin) 100 mg/5 mL syrup Take 10 mL (200 mg) by mouth 4 times a day as needed for cough. Active 12 hr guaiFENesin 600 mg / pseudoephedrine hydrochloride 60 mg extended release oral tablet (1 source) alpha-Adrenergic Agonist Start: 10-03-2021 take 2 tablets by mouth twice daily, then take 1 tablet by mouth every twelve hours Pseudoephedrine-Guaifenesin (Mucus D) 60-600 mg tablet extended release 12 hr Active 2 TABLET PO TWICE A DAY October 03, 2021 10:02am 1 ml hydrALAZINE hydrochloride 20 mg/ml injection (3 sources) Arteriolar Vasodilator Start: 08-04-2021 hydrALAZINE (APRESOLINE) injection 5 mg Start: 07-27-2020 hydrALAZINE (A PRESOLINE) injection 5 mg Start: 07-08-2020 hydrALAZINE (A PRESOLINE) injection 5 mg hydroCHLOROthiazide 12.5 mg oral capsule (3 sources) Thiazide Diuretic Start: 07-01-2020 take 12.5 mg by mouth twice daily Hydrochlorothiazide Active 12.5 MG PO TWICE A DAY June 15, 2021 3:41pm hydrocortisone 25 mg/ml topical lotion (20 sources) Corticosteroid Start: 09-05-2022 Hydrocortisone Active 1 APPLIC TOPICAL THREE TIMES A DAY 59 September 05, 2022 12:00am Start: 09-05-2022 Hydrocortisone Active 1 APPLIC TOPICAL 3 TIMES DAILY NEEDED September 05, 2022 12:00am Start: 02-01-2022 End: 02-01-2023 hydrocortisone 2.5 % cream A PPLY TO AFFECTED AREA TWO TIMES A DAY 30 g 0 02/01/2022 10/31/2022 Discontinued HYDROmorphone (DILAUDID) injection 0.25 mg (1 source) Start: 08-06-2020 HYDROmorphone (DILAUDID) injection 0.25 mg hydrOXYzine pamoate 25 mg oral capsule (7 sources) Antihistamine Start: 05-08-2024 take 1 capsule by mouth every six hours as needed for anxiety Hydroxyzine Pamoate (Vistaril) 25 mg capsule Active 25 mg PO EVERY 6 HOURS as needed for anxiety May 08, 2024 12:00am Start: 11-10-2022 End: 11-10-2022 take 25 mg by mouth once 25 mg, Oral, Once, On 07/23 at 2115, For 1 dose ibuprofen 200 mg oral tablet (12 sources) Nonsteroidal Anti-inflammatory Drug Start: 01-14-2025 take 2 tablets by mouth every twelve hours as needed for pain Ibuprofen (Advil) 200 mg tablet Active 400 mg PO Q12H as needed for pain January 14, 2025 12:00am Start: 07-08-2020 take 1 tablet by uriel th four times daily as needed for pain ibuprofen (ADVIL;MOTRIN) 600 MG tablet Take 1 tablet by mouth 4 times daily as needed for Pain 60 tablet 1 07/08/2020 Active ipratropium bromide 0.2 mg/ml inhalation solution (3 sources) Anticholinergic Start: 04-24-2023 take 1 dose by inhalation three times daily as needed ipratropium 500 mcg/2.5 mL inhalation solution Dose : 500 mcg = 2.5 mL, Inhalation, TID, PRN, # 675 mL, 1 Refill(s), Pharmacy: [facility], Asthma, 167, cm, 09/26/22 9:51:00 EST, Height, kg, 04/24/23 8:39:00 EDT, Dosing Weight Start Date: 04/24/23 Status: Ordered Start: 03-23-2022 take 1 dose by inhal ation three times daily as needed ipratropium 500 mcg/2.5 mL inhalation solution Dose : 500 mcg = 2.5 mL, Inhalation, TID, PRN, # 675 mL, 1 Refill(s), Pharmacy: [id number], Asthma, 167, cm, 03/23/22 13:02:00 EDT, Height, kg, 03/23/22 13:02:00 EDT, Dosing Weight Start Date: 03/23/22 Status: Ordered Start: 06-10-2021 End: 07-10-2021 take 1 dose by inhalation three times daily as needed ipratropium 500 mcg/2.5 mL inhalation solution Dose : 500 mcg = 2.5 mL, Inhalation, TID, PRN, # 225 mL, 0 Refill(s), Pharmacy: [id number], Asthma, 170.2, cm, 06/10/21 13:10:00 EDT, Height, kg, 06/10/21 13:10:00 EDT, Dosing Weight Start Date: 06/10/21 Stop Date: 07/10/21 Status: Ordered Ketoprofen 10 % CREA (1 source) Start: 01-14-2020 Ketoprofen 10 % CREA Indications: Osteomyelitis of right foot, unspecified type (HCC) Ketoprofen 20%, gabapentin 8%, lidocaine 2% in PLO gel. Apply dime sized amount to affected area daily. 1 Bottle 0 01/14/2020 Active labetalol hydrochloride 5 mg/ml injectable solution (3 sources) beta-Adrenergic Leonardo Start: 08-04-2021 labetalol (NORMODYNE;TRANDATE) injection 5 mg Start: 07-27-2020 labetalol (NOR MODYNE;TRANDATE) injection 5 mg Start: 07-08-2020 labetalol (NOR MODYNE;TRANDATE) injection 5 mg labetalol (NORMODYNE;TRANDAT E) injection 10 mg (2 sources) Start: 01-11-2022 labetalol (NOR MODYNE;TRANDATE) injection 10 mg Start: 12-19-2021 labetalol (NOR MODYNE;TRANDATE) injection 10 mg lidocaine 0.05 mg/mg medicated patch (20 sources) Antiarrhythmic, Amide Local Anesthetic Start: 01-14-2025 Lidocaine (Dermacinr x Lidocan) 5 % adhesive patch,medicated Active 1 NMA TOPICAL AT BEDTIME January 14, 2025 12:00am PAIN APPLY TO THE LEFT SHOULDER AT BEDTIME. REMOVE AFTER 12 HOURS. Start: 01-02-2024 lidocaine (Xyl ocaine) 1 % injection 3 mL Start: 12-26-2023 End: 01-02-2024 lidocaine (Xylocaine) 1 % injection 3 mL Start: 05-29-2023 End: 06-08-2023 Lidocaine 4 % patch 1 patch Start: 02-12-2023 lidocaine (Xyl ocaine) 1 % injection 4 mL Start: 01-30-2023 End: 01-30-2023 lidocaine (Xylocaine) 1 % injection 7 mL Start: 01-15-2023 End: 01-15-2023 lidocaine (Xylocaine) 1 % injection 3 mL Start: 12-20-2022 End: 12-20-2022 lidocaine (Xylocaine) 1 % injection 3 mL Start: 12-20-2022 End: 12-20-2022 lidocaine (Xylocaine) 1 % injection 3 mL Start: 12-07-2022 End: 12-28-2022 apply 1 dose transdermal route once daily Lidocaine 4 % patch Place 1 patch on the skin daily for 15 days. Apply patch to left shoulder. Patch may remain in place for up to 12 hours in any 24 hour period. Do not start before December 13, 2022. 15 patch 0 12/13/2022 12/28/2022 Active Start: 11-10-2022 End: 11-27-2022 apply 1 dose topically every twelve hours 1 patch, Topical, Administer over 12 Hours, Daily, First dose on Sun11/10/22 at 1900 Apply patch to leg. Patch may remain in place for up to 12 hours in any 24 hour period. Start: 11-01-2022 End: 12-04-2022 Lidocaine 4 % patch Apply 1 patch topically daily. Do not start before November 03, 2022. 0 11/03/2022 12/04/2022 Discontinued (Med list cleanup) Start: 01-11-2022 End: 01-11-2022 lidocaine PF 1 % injection 1 mL Start: 12-19-2021 End: 12-19-2021 lidocaine PF 1 % injection 1 mL Start: 08-04-2021 End: 08-04-2021 lidocaine PF 1 % injection 5 mL Start: 08-04-2021 End: 08-04-2021 lidocaine PF 1 % injection Start: 08-04-2021 End: 08-04-2021 lidocaine PF 1 % injection 1 mL Start: 07-27-2020 End: 07-27-2020 lidocaine PF 1 % injection 1 mL Start: 07-08-2020 End: 07-08-2020 lidocaine PF 1 % injection 1 mL Start: 11-05-2018 End: 11-05-2018 take 1 mL intradermal route every twenty-four hours as needed lidocaine 1% (XYLOCAINE) 10 mg/mL (1 %) injection 1 mL Start: 03-24-2016 End: 05-25-2016 Lidocaine 1 PATCH patch Discontinued 1 NMA TOPICAL DAILY 5 March 24, 2016 12:00am May 25, 2016 9:21am Start: 03-24-2016 End: 05-25-2016 apply 1 dose topically once daily Lidocaine Discontinu ed 1 PATCH TOPICAL DAILY March 24, 2016 12:00am May 25, 2016 9:21am loratadine 10 mg oral tablet (20 sources) Start: 07-21-2023 take 1 tablet by mouth once daily Loratadine (Allergy Relief (Loratadine)) 10 mg tablet Active 10 mg PO DAILY July 21, 2023 12:00am allergies Start: 04-24-2023 loratadine 10 mg oral tablet Dose : 10 mg = 1 tab(s), Oral, qDay, # 90 tab(s), 1 Refill(s), Pharmacy: [facility], Seasonal allergies, 167, cm, 09/26/22 9:51:00 EST, Height, kg, 04/24/23 8:39:00 EDT, Dosing Weight Start Date: 04/24/23 Status: Ordered take 1 tablet by uriel th once daily loratadine (Claritin Reditabs) 10 mg disintegrating tablet Dissolve 1 tablet (10 mg) in the mouth once daily. Active take 1 capsule by mo uth once daily Loratadine 10 MG capsule Take 10 mg by mouth daily. Active take 1 tablet by uriel th once daily loratadine (CLARITIN) 10 MG tablet Take 10 mg by mouth daily 0 Suspended Magnesium Hydroxide (8 sources) Start: 01-14-2025 Magnesium Hydr oxide (Dulcolax (Magnesium Hydroxide)) 400 mg/5 mL suspension Active 2400 mg PO DAILY as needed for constipation January 14, 2025 12:00am GIVE ONCE DAILY PER BOWEL PROTOCOL. ADMINISTER IF NO BM IN 3 CONSECUTIVE DAYS Start: 08-06-2020 magnesium hydr oxide (MILK OF MAGNESIA) 400 MG/5ML suspension 30 mL Start: 05-03-2019 take 30 mL by mouth once daily as needed for constipation 30 mL, Oral, DAILY PRN, Constipation, Starting 05/03/19 at 2141 First line therapy for constipation. Start: 11-04-2018 End: 11-05-2018 take 2400 mg by mouth once daily as needed for constipation 2,400 mg (30 mL), Oral, Daily PRN, constipation, Constipation, Starting 11/04/18 at 1345 melatonin 5 mg oral tablet (13 sources) Start: 07-21-2023 take 1 tablet by mouth at bedtime Melatonin 5 mg tablet Active 5 mg PO AT BEDTIME July 21, 2023 12:00am sleep Start: 12-04-2022 End: 12-27-2022 take 1 tablet by mouth once daily as needed melatonin 5 MG tablet Indications: Insomnia Take 1 tablet (5 mg) by mouth Nightly as needed (insominia) for up to 15 days. 10 tablet 0 12/12/2022 12/27/2022 Active Start: 05-03-2019 take 9 mg by mouth o nce daily as needed for sleep 9 mg, Oral, NIGHTLY PRN, Sleep, Starting 05/03/19 at 2141 melatonin 1 mg t ablet Take 5 tablets (5 mg) by mouth as needed at bedtime for sleep. Active meropenem 1000 mg injection (15 sources) Penem Antibacterial Start: 12-12-2022 End: 01-16-2023 take 2 g intravenously every eight hours meropenem (Merrem) 1 g injection Infuse 2 g into a venous catheter in the morning and 2 g at noon and 2 g before bedtime. Stop date for antibiotic is 01/16/2023. 180 g 1 12/12/2022 01/16/2023 Active Start: 11-27-2022 End: 12-04-2022 take 2 g intravenously every eight hours meropenem (Merrem) 1 g injection Infuse 2 g into a venous catheter in the morning and 2 g at noon and 2 g before bedtime. Do all this for 3 days. 18 g 0 11/27/2022 12/04/2022 Discontinued (Med list cleanup) Start: 11-27-2022 End: 11-30-2022 take 2 g intravenously every eight hours metFORMIN hydrochloride 850 mg oral tablet (5 sources) Biguanide Start: 05-06-2024 take 1 tablet by mouth twice daily Metformin 850 mg tablet Active 850 mg PO TWICE A DAY May 06, 2024 12:00am DIABETES methylPREDNISolone Dosepak 4 mg tablet (1 source) Start: 07-04-2022 methylPREDNISolone Dosepak 4 mg tablet Per Dosepak Instructions, Oral, Daily, as directed on package labeling, # 1 EA, 0 Refill(s), Pharmacy: [facility] #[id number], 167, cm, 06/26/22 11:26:00 EDT, Height Start Date: 07/04/22 Status: Ordered metOLazone 5 mg oral tablet (8 sources) Thiazide-like Diuretic Start: 05-04-2019 take 5 mg by mouth once daily in the morning 5 mg, Oral, EVERY MORNING, First dose on 05/04/19 at 1315 Start: 12-04-2018 End: 12-04-2018 take 5 mg by mouth once daily in the morning 5 mg, Oral, Every morning, First dose on Sun12/04/18 at 0900 take 1 tablet by uriel th once daily in the morning metOLazone (ZAROXOLYN) 5 MG tablet Indications: fluid retention Take 5 mg by mouth every morning . 0 Active 24 hr metoprolol succinate 50 mg extended release oral tablet (16 sources) beta-Adrenergic Leonardo Start: 10-16-2022 End: 07-23-2023 take 1 tablet by mouth once daily Metoprolol Succinate 50 mg tablet extended release 24 hr Active 50 mg PO DAILY October 16, 2022 1:00am blood pressure take 1 tablet by mouth once mica y metoprolol tartrate (Lopressor) 50 mg tablet Take 1 tablet by mouth once daily. Active take 1 tablet by uriel th every twenty-four hours metoprolol succinate XL (Toprol-XL) 50 M G 24 hr tablet Take by mouth. Do not crush or chew. Active miconazole nitrate 0.02 mg/mg topical powder (20 sources) Azole Antifungal Start: 12-10-2022 End: 12-12-2022 miconazole (Micotin) 2 % powder Apply topically 2 times daily. 15 g 0 12/12/2022 Active 2 ml midazolam 1 mg/ml injection (3 sources) Benzodiazepine Start: 08-04-2021 midazolam (CHICHO SED) injection 2 mg Start: 08-17-2020 End: 08-17-2020 midazolam (VERSED) injection 2 mg Start: 07-27-2020 midazolam (CHICHO SED) injection 2 mg mineral oil 1000 mg/ml enema (5 sources) Start: 01-14-2025 Mineral Oil (F leet Mineral Oil) enema Active 118 mL RC DAILY as needed for constipation January 14, 2025 12:00am ADMINISTER ONCE DAILY IF NO BM 8 HOURS AFTER RECEIVING SUPPOSITORY. IF NO BM WITHIN 1 HOUR AFTER RECEIVING ENEMA NOTIFY MD. take 133 mL rectal route once mi neral oil enema Insert 133 mL (1 enema) into the rectum 1 time. Active moisturizing mouth (Biotene Dry Mouth) solution (1 source) take 15 mL by mouth once daily at bedtime moisturizing mouth (Biotene Dry Mouth) solution Swish and spit 15 mL once daily at bedtime. Dry mouth Active montelukast 10 mg oral tablet (20 sources) Leukotriene Receptor Antagonist Start: 2 End: 3 take 1 tablet by mouth once daily Montelukast 10 mg Tablet Active 10 mg PO DAILY October 16, 2022 1:00am asthma Start: 06-15-2021 take 10 mg by mouth once daily Montelukast Active 10 MG PO DAILY June 15, 2021 3:41pm Start: 08-18-2020 montelukast (S INGULAIR) tablet 10 mg Start: 01-16-2014 End: 11-17-2019 take 1 tablet by mouth once daily Montelukast 10 MG tablet Discontinued 10 mg PO DAILY January 16, 2014 12:00am November 17, 2019 8:56am ALLERGIES Multivitamin (Daily Multi-Vitamin) tablet (5 sources) Start: 07-21-2023 Multivitamin ( Daily Multi-Vitamin) tablet Active 1 {tbl} PO DAILY July 21, 2023 12:00am supplement Start: 07-21-2023 Multivitamin ( Daily Multi-Vitamin) tablet Active 1 {tbl} PO DAILY July 21, 2023 12:00am Start: 07-21-2023 take 1 tablet by uriel th once daily Multivitamin (Daily Multi-Vitamin) tablet Active 1 TABLET PO DAILY July 21, 2023 12:00am ondansetron 4 mg disintegrating oral tablet (20 sources) Serotonin-3 Receptor Antagonist Start: 01-27-2025 take 1 tablet by mouth every six hours as needed for nausea and vomiting Ondansetron 4 mg tablet,disintegrating Active 4 mg PO EVERY 6 HOURS as needed for nausea and vomiting January 27, 2025 12:00am Start: 05-22-2023 End: 05-22-2023 ondansetron (Zofran) injecti on 4 mg Start: 05-08-2023 End: 05-08-2023 ondansetron (Zofran) injecti on 4 mg Start: 05-08-2023 End: 06-15-2023 take 1 tablet by mouth every eight hours as needed for nausea and nausea, then take 1 tablet by mouth every eight hours as needed for nausea and nausea ondansetron ODT (Zofran-ODT) 4 MG disintegrating tablet Indications: Postoperative Nausea and Vomiting Take 1 tablet (4 mg) by mouth every 8 hours as needed for nausea or vomiting for up to 7 days. Take 1 tablet by mouth once every 8 hours as needed for nausea. 21 tablet 0 05/22/2023 06/08/2023 Discontinued Start: 02-22-2023 End: 02-28-2023 ondansetron (Zofran) injecti on 4 mg Start: 01-11-2022 End: 01-11-2022 ondansetron (ZOFRAN) injecti on 4 mg Start: 12-19-2021 End: 12-19-2021 ondansetron (ZOFRAN) injecti on 4 mg Start: 08-04-2021 take 1 tablet by uriel th three times daily as needed for nausea ondansetron (ZOFRAN-ODT) 4 MG disintegrating tablet Indications: Tear of peroneal tendon, left, subsequent encounter Take 1 tablet by mouth 3 times daily as needed for Nausea or Vomiting 21 tablet 0 08/04/2021 Active Start: 08-04-2021 End: 08-04-2021 ondansetron (ZOFRAN) injecti on 4 mg Start: 07-27-2020 End: 07-28-2021 take 1 tablet by mouth every eight hours as needed for nausea ondansetron (ZOFRAN) 4 MG tablet 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) Take 1 tablet by mouth every 8 hours as needed for Nausea or Vomiting 30 tablet 0 07/27/2020 07/28/2021 Discontinued (Therapy completed) Start: 07-27-2020 End: 07-27-2020 ondansetron (ZOFRAN) injecti on 4 mg Start: 07-08-2020 End: 07-08-2020 ondansetron (ZOFRAN) injecti on 4 mg Start: 05-03-2019 4 mg, Intraven ous, EVERY 6 HOURS PRN, Nausea, Starting 05/03/19 at 2141 Start: 11-01-2018 End: 11-05-2018 take 4 mg by mouth every six hours as needed ondansetron (ZOFRAN) solution 4 mg take 1 tablet by uriel th four times daily as needed for nausea ondansetron (Zofran) 4 mg tablet Take 1 tablet (4 mg) by mouth 4 times a day as needed for nausea or vomiting. Active PARoxetine hydrochloride 30 mg oral tablet (20 sources) Serotonin Reuptake Inhibitor take 1 tablet by mouth in the morning PARoxetine (Paxil) 30 MG tablet Take 30 mg by mouth in the morning. 0 Active polyethylene glycol 3350 46526 mg powder for oral solution (20 sources) Osmotic Laxative Start: Polyethylene Glycol 3350 (Clearlax) 17 gram/dose powder Active 17 g PO DAILY as needed for constipation January 14, 2025 12:00am Start: 05-29-2023 End: 06-08-2023 take 17 g by mouth every twenty-four hours as needed for constipation 17 g, Oral, Daily PRN, constipation, Starting on Tu05/29/23 at 1248 1st line for treatment of constipation - give scheduled if no bowel movement in past 24 hours. Start: 11-15-2022 End: 12-12-2022 17 g, Oral, Daily, First dos e on Sun12/04/22 at 0900 Start: 08-17-2020 polyethylene g lycol (GLYCOLAX) packet 17 g Start: 08-06-2020 polyethylene g lycol (GLYCOLAX) packet 17 g Start: 04-29-2019 End: 05-29-2019 take 17 g by mouth once daily polyethylene glycol (GLY COLAX) packet Take 17 g by mouth daily 527 g 1 04/29/2019 05/29/2019 Suspended potassium chloride 20 meq extended release oral tablet (20 sources) Start: 01-27-2025 take 1 tablet by mouth twice daily Potassium Chloride 20 mEq tablet extended release Active 20 meq PO TWICE A DAY January 27, 2025 12:00am Start: 01-14-2025 End: 01-27-2025 take 6.6667 mEq by mouth twice daily Potassium Chloride 20 mEq/15 mL liquid Discontinued 6.6667 meq PO TWICE A DAY January 14, 2025 12:00am January 27, 2025 10:39am SUPPLEMENT Start: 04-24-2023 End: 10-21-2023 potassium chloride 20 mEq or al tablet, extended release Dose : 20 mEq = 1 tab(s), Oral, qDay, # 90 tab(s), 1 Refill(s), Pharmacy: [facility], HTN, goal below 140/90, 167, cm, 09/26/22 9:51:00 EST, Height, kg, 04/24/23 8:39:00 EDT, Dosing Weight Start Date: 04/24/23 Stop Date: 10/21/23 Status: Ordered Start: 08-29-2022 take 1 tablet by uriel once daily potassium chloride CR (K-Tab) 20 MEQ ER tablet TAKE 1 TABLET BY MOUTH EVERY DAY. take with a full glass OF water 0 08/29/2022 Active Start: 03-23-2022 End: 09-19-2022 potassium chloride 20 mEq or al tablet, extended release Dose : 20 mEq = 1 tab(s), Oral, qDay, # 90 tab(s), 1 Refill(s), Pharmacy: [facility] #[id number], HTN, goal below 140/90, 167, cm, 03/23/22 13:02:00 EDT, Height, kg, 03/23/22 13:02:00 EDT, Dosing Weight Start Date: 03/23/22 Stop Date: 09/19/22 Status: Ordered Start: 01-28-2021 End: 10-25-2021 potassium chloride 20 mEq or al tablet, extended release Dose : 20 mEq = 1 tab(s), Oral, qDay, # 90 tab(s), 2 Refill(s), Pharmacy: [facility], HTN, goal below 140/90, 170.2, cm, 01/28/21 10:18:00 EDT, Height, kg, 01/28/21 10:18:00 EDT, Dosing Weight Start Date: 01/28/21 Stop Date: 10/25/21 Status: Ordered Start: 05-09-2019 End: 05-09-2019 potassium chloride (KLOR-CON M) extended release tablet 40 mEq Start: 05-04-2019 End: 05-06-2019 potassium chloride (KLOR-CON M) extended release tablet 40 mEq Start: 11-01-2018 End: 01-14-2025 take 1 tablet by mouth once daily Potassium Chloride 20 MEQ tablet Discontinued 20 meq PO DAILY November 01, 2018 1:00am January 14, 2025 9:52am supplement Start: 11-01-2018 End: 11-05-2018 take 40 mEq by mouth once daily Potassium Chloride Act filemon 40 MEQ PO DAILY November 01, 2018 1:00am take 20 mEq by mouth twice daily potassium chloride (KLOR-CON) 20 MEQ packet Take 20 mEq by mouth 2 times daily 0 Active take 2 tablets by [facility] once daily in the morning, then take 1 tablet by mouth potassium chloride SA (K-DUR,KLOR-CON) 20 MEQ tablet Indications: prevention of low potassium in the blood Take 40 mEq by mouth every morning Reasons: prevention of low potassium in the blood. 0 Active pramipexole dihydrochloride 1.5 mg oral tablet (20 sources) Nonergot Dopamine Agonist Start: 04-24-2023 End: 10-21-2023 pramipexole 1.5 mg oral tablet Dose : 3 mg = 2 tab(s), Oral, qHS, # 180 tab(s), 1 Refill(s), Pharmacy: [facility], 167, cm, 09/26/22 9:51:00 EST, Height, kg, 04/24/23 8:39:00 EDT, Dosing Weight Start Date: 04/24/23 Stop Date: 10/21/23 Status: Ordered Start: 11-10-2021 pramipexole 1. 5 mg oral tablet Dose : 3 mg = 2 tab(s), qHS, 0 Refill(s) Start Date: 11/10/21 Status: Ordered Start: 06-15-2021 take 3 mg by mouth at bedtime Pramipexole Active 3 MG PO AT BEDTIME June 15, 2021 12:00am Start: 01-28-2021 End: 10-25-2021 pramipexole 1.5 mg oral tabl et Dose : 3 mg = 2 tab(s), Oral, qHS, X 90 day(s), # 180 tab(s), 2 Refill(s), 10/25/21 11:05:00 EST, Pharmacy: [facility], Restless leg syndrome, 170.2, cm, 01/28/21 10:18:00 EDT, Height, kg, 01/28/21 10:18:00 EDT, Dosing Weight Start Date: 01/28/21 Stop Date: 10/25/21 Status: Ordered Start: 08-18-2020 pramipexole (M IRAPEX) tablet 3 mg Start: 11-01-2018 End: 11-05-2018 take 3 mg by mouth once daily 3 mg, Oral, Nightly, Fir st dose on Sun11/01/18 at 2100 Start: 07-26-2015 take 2 tablets by mo [facility] at bedtime Pramipexole 1.5 mg tablet Active 3 mg PO AT BEDTIME June 15, 2021 12:00am RESTLESS LEG SYNDROME Start: 07-26-2015 pramipexole (M IRAPEX) 1.5 MG tablet nightly 0 07/26/2015 Active Promethazine (6 sources) Phenothiazine Start: 09-06-2021 End: 09-16-2021 Promethazine DM 6.25 mg-15 m g/5 mL oral syrup Dose = 5 mL, Oral, q6hr, PRN for cough, not to exceed 6 doses/day, X 10 day(s), # 200 mL, 0 Refill(s), Pharmacy: [id number], Chronic coughing, 170.2, cm, 09/06/21 14:36:00 EST, Height, kg, 09/06/21 14:36:00 EST, Dosing Weight Start Date: 09/06/21 Stop Date: 09/16/21 Status: Ordered Start: 08-04-2021 End: 08-04-2021 promethazine (PHENERGAN) inj ection 6.25 mg Start: 08-17-2020 promethazine ( PHENERGAN) tablet 12.5 mg Start: 08-06-2020 promethazine ( PHENERGAN) tablet 12.5 mg Start: 07-27-2020 End: 07-27-2020 promethazine (PHENERGAN) inj ection 6.25 mg Start: 07-08-2020 End: 07-08-2020 promethazine (PHENERGAN) inj ection 6.25 mg rOPINIRole 0.25 mg oral tablet (2 sources) Nonergot Dopamine Agonist Start: 05-16-2025 take 1 tablet by mouth three times daily Ropinirole 0.25 mg tablet Active 0.25 mg PO THREE TIMES A DAY May 16, 2025 12:00am rosuvastatin calcium 5 mg oral tablet (12 sources) HMG-CoA Reductase Inhibitor Start: 04-24-2023 Crestor 5 mg oral tablet Dose : 5 mg = 1 tab(s), Oral, Daily, # 90 tab(s), 1 Refill(s), Pharmacy: [facility], Hypercholesterole jennifer, 167, cm, 09/26/22 9:51:00 EST, Height, kg, 04/24/23 8:39:00 EDT, Dosing Weight Start Date: 04/24/23 Status: Ordered Saliva Substitute Combo No.9 (Biotene Dry Mouth Oral Rinse) mouthwash (4 sources) Start: 01-14-2025 take 1 mL by mouth once daily Saliva Substitute Combo No.9 (Biotene Dry Mouth Oral Rinse) mouthwash Active 15 mL MUCOUS MEM DAILY January 14, 2025 12:00am DRY MOUTH Start: 01-14-2025 take 1 mL by mouth once daily Saliva Substitute Combo No.9 (Biotene Dry Mouth Oral Rinse) mouthwash Active 15 mL MUCOUS MEM DAILY January 14, 2025 12:00am sertraline 50 mg oral tablet (5 sources) Serotonin Reuptake Inhibitor Start: 05-06-2024 take 1 tablet by mouth once daily Sertraline 50 mg tablet Active 50 mg PO DAILY May 06, 2024 12:00am DEPRESSION tiotropium 0.018 mg inhalation powder (20 sources) Anticholinergic Start: 12-12-2022 End: 01-11-2023 take 1 capsule by inhalation in the morning tiotropium (Spiriva) [address] 1 capsule (18 mcg) into inhaler and inhale in the morning. 30 capsule 1 12/12/2022 Active Start: 12-04-2022 End: 12-12-2022 take 1 capsule by inhalation twice daily 18 mcg (1 capsule), Inhalation, Daily, First dose on Sun12/04/22 at 0800 Not for oral use. To ensure drug delivery the contents of each capsule should be inhaled twice. Start: 11-10-2022 End: 11-27-2022 take 1 capsule by inhalation twice daily 18 mcg (1 capsule), Inhalation, Daily, First dose on Sun11/10/22 at 1900 Not for oral use. To ensure drug delivery the contents of each capsule should be inhaled twice. End: 12-04-2022 take 1 capsule by inhalation in the morning tiotropium (Spiriva) [address] 18 mcg into inhaler and inhale in the morning. 0 12/04/2022 Discontinued (Med list cleanup) 7 actuat umeclidinium 0.0625 mg/actuat dry powder inhaler (20 sources) Anticholinergic Start: 11-03-2022 take 62.5 ug by inhalation every twenty-four hours umeclidinium (Incruse Ellipta) 62.5 MCG/ACT inhalation Inhale Every 24 hours. 11/03/2022 Active valsartan 320 mg oral tablet (20 sources) Angiotensin 2 Receptor Leonardo Start: 01-28-2021 End: 11-02-2022 take 1 tablet by mouth once daily Valsartan 320 mg tablet Active 320 mg PO DAILY May 19, 2021 12:00am heart Start: 08-18-2020 valsartan (AGUS VAN) tablet 160 mg take 1 tablet by uriel th once daily valsartan (DIOVAN) 160 MG tablet Take 160 mg by mouth daily 0 Suspended Vitamin C 500 mg oral tablet (1 source) Start: 01-16-2023 take 1 mg by mouth once daily Vitamin C 500 mg oral tablet mg = tab(s), Oral, qDay, 0 Refill(s) Start Date: 01/16/23 Status: Ordered Completed/Discontinued Medications Medication Drug Class(es) Dates Sig (Normalized) Sig (Original) acetaminophen 325 mg / oxyCODONE hydrochloride 5 mg oral tablet (20 sources) Opioid Agonist Start: 05-08-2023 End: 06-15-2023 take 1 tablet by mouth every six hours as needed for pain oxyCODONE-acetamino phen (Percocet) 5-325 MG tablet Indications: 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 28 tablet 0 05/25/2023 06/08/2023 Discontinued (Stop taking at discharge) Start: 02-22-2023 End: 02-27-2023 take 1 tablet by mouth every six hours as needed for pain and pain and pain and pain oxyCODONE-acetaminophen (Percocet) 5-325 MG tablet Indications: Pain from implanted hardware, initial encounter Take 1 tablet by mouth every 6 hours as needed for moderate pain (4-6) or severe pain (7-10) for up to 5 days. 20 tablet 0 02/22/2023 02/27/2023 Start: 12-12-2022 End: 12-17-2022 take 2 tablets by mouth every six hours as needed for pain oxyCODONE-acetaminophen (Percocet) 5-325 MG tablet Indications: Stump pain (HCC) Take 2 tablets by mouth every 6 hours as needed for severe pain (7-10) for up to 5 days. 15 tablet 0 12/12/2022 12/17/2022 Active Start: 12-03-2022 End: 12-12-2022 take 2 tablets by mouth every six hours as needed for pain oxyCODONE-acetaminophen (Percocet) 5-325 MG per tablet 2 tablet Start: 02-10-2022 End: 05-18-2023 take 1 tablet by mouth every four hours as needed for pain oxyCODONE-acetaminophen (Percocet) 5-325 MG tablet Dose = 1 tab(s), Oral, q4h, PRN for pain, # 12 tab(s), 0 Refill(s), 164.7 0 02/10/2022 05/18/2023 Discontinued Start: 01-11-2022 End: 01-18-2022 oxyCODONE-acetaminophen (PER COCET) 5-325 MG per tablet Indications: S/P split thickness skin graft Take 1 tablet by mouth every 6 hours as needed for Pain for up to 7 days. Intended supply: 7 days. Take lowest dose possible to manage pain 28 tablet 0 01/11/2022 01/18/2022 Active Start: 12-19-2021 End: 12-26-2021 oxyCODONE-acetaminophen (PER COCET) 5-325 MG per tablet Indications: Dehiscence of closure of skin, sequela , Infected wound Take 1 tablet by mouth every 6 hours as needed for Pain for up to 7 days. Intended supply: 7 days. Take lowest dose possible to manage pain 28 tablet 0 12/19/2021 12/26/2021 Active Start: 02-24-2021 End: 08-04-2021 oxyCODONE-acetaminophen (PER COCET) 5-325 MG per tablet TAKE 1 TABLET DAILY NEEDED 0 02/24/2021 08/04/2021 Discontinued (Stop Taking at Discharge) Start: 01-28-2021 End: 08-11-2021 oxyCODONE-acetaminophen (PER COCET) 5-325 MG per tablet Indications: Tear of peroneal tendon, left, subsequent encounter Take 1 tablet by mouth every 6 hours as needed for Pain for up to 7 days. Intended supply: 7 days. Take lowest dose possible to manage pain 28 tablet 0 08/04/2021 08/11/2021 Active Start: 08-17-2020 End: 08-24-2020 take 1 tablet by mouth every six hours as needed for pain oxyCODONE-acetaminophen (PERCOCET) 5-325 MG per tablet Indications: BKA stump complication (HCC) Take 1 tablet by mouth every 6 hours as needed for Pain for up to 7 days. 28 tablet 0 08/17/2020 08/24/2020 Active Start: 04-02-2020 End: 08-12-2020 take 1 tablet by mouth every six hours as needed for pain, then take 1 tablet by mouth as needed for pain oxyCODONE-acetaminophen (PERCOCET) 5-325 MG per tablet Indications: BKA stump complication (HCC) Take 1 tablet by mouth every 6 hours as needed for Pain for up to 5 days. Intended supply: 3 days. Take lowest dose possible to manage pain 20 tablet 0 08/07/2020 08/12/2020 Active Start: 09-20-2019 take 2 tablets by mo [facility] at bedtime as needed Oxycodone-Acetaminophen Active 2 TABLET PO AT BEDTIME NEEDED September 20, 2019 12:00am Start: 05-03-2019 End: 05-03-2019 oxyCODONE-acetaminophen (PER COCET) 5-325 MG per tablet 1 tablet Start: 11-01-2018 End: 11-05-2018 take 1-2 tablets by mouth every four hours as needed oxyCODONE-acetaminophen (PERCOCET) 5-325 mg per tablet 1-2 tablet take 1 tablet by uriel twice daily as needed oxyCODONE-acetaminophen (PERCOCET) 5-325 mg per tablet Take 1 tablet by mouth 2 (two) times a day as needed . 0 Active End: 11-05-2018 take 1 tablet by mouth every six hours as needed oxyCODONE-acetaminophen (PERCOCET) 5-325 mg per tablet Take 1 tablet by mouth every 6 (six) hours as needed for pain . 0 11/05/2018 Discontinued ALPRAZolam 0.5 mg oral tablet (20 sources) Benzodiazepine Start: 07-20-2023 End: 05-06-2024 take 1 tablet by mouth once daily as needed for anxiety Alprazolam 0.5 mg tablet Discontinued 0.5 mg PO DAILY as needed for anxiety July 20, 2023 12:00am May 06, 2024 9:15am Start: 05-29-2023 End: 05-29-2023 ALPRAZolam (Xanax) disintegr ating tablet 0.25 mg Start: 05-08-2023 End: 05-08-2023 ALPRAZolam (Xanax) disintegr ating tablet 0.25 mg Start: 02-22-2023 End: 02-28-2023 ALPRAZolam (Xanax) disintegr ating tablet 0.25 mg Start: 01-16-2023 End: 04-16-2023 ALPRAZolam 0.5 mg oral table t Dose : 0.5 mg = 1 tab(s), Oral, qHS, Fill Date: 01/16/2023, # 30 tab(s), 2 Refill(s), Pharmacy: [facility] #[id number], SAI (generalized anxiety disorder), 167, cm, 09/26/22 9:51:00 EST, Height, 154.4 Start Date: 01/16/23 Stop Date: 04/16/23 Status: Ordered Start: 08-17-2020 End: 08-17-2020 ALPRAZolam (NIRAVAM) dissolv able tablet 0.25 mg Start: 07-27-2020 ALPRAZolam (NI RAVAM) dissolvable tablet 0.25 mg Start: 07-08-2020 ALPRAZolam (NI RAVAM) dissolvable tablet 0.25 mg Start: 01-17-2015 End: 03-16-2018 take 1 tablet by mouth twice daily as needed for anxiety Alprazolam 0.5 MG tablet Discontinued 0.5 mg PO TWICE DAILY NEEDED as needed for Anxiety 20 0 June 01, 2015 10:49am March 16, 2018 10:54pm alteplase (CATH BERNIE) injecti on 2 mg (2 sources) Start: 12-04-2018 End: 12-04-2018 alteplase (CATH BERNIE) injecti on 2 mg Start: 11-05-2018 End: 11-05-2018 alteplase (CATH BERNIE) injecti on 2 mg aluminum hydroxide 40 mg/ml / magnesium hydroxide 40 mg/ml / simethicone 4 mg/ml oral suspension (1 source) Start: 11-04-2018 End: 11-05-2018 take 30 mL by mouth every four hours as needed 30 mL, Oral, Every 4 hours PRN, indigestion, Starting 11/04/18 at 1345 amitriptyline hydrochloride 25 mg oral tablet (20 sources) Tricyclic Antidepressant Start: 05-29-2023 End: 06-08-2023 take 100 mg by mouth once daily 100 mg, Oral, Nightly, First dose on Sun05/29/23 at 2100 Start: 12-04-2022 End: 12-12-2022 take 100 mg by mouth once daily 100 mg, Oral, Nightly, First dose on Sun12/04/22 at 0100 Start: 11-10-2022 End: 11-27-2022 take 25 mg by mouth once daily 25 mg, Oral, Nightly, F irst dose on Sun11/10/22 at 2100 Start: 10-31-2022 End: 11-02-2022 take 100 mg by mouth once daily 100 mg, Oral, Nightly, First dose on Sun10/31/22 at 2230, Phase II/On Unit Start: 03-23-2022 End: 10-21-2023 take 1 tablet by mouth at bedtime Amitriptyline 100 mg tablet Active 100 mg PO AT BEDTIME August 31, 2022 1:00am PHANTOM PAIN/DEPRESSION Start: 05-19-2021 take 50 mg by mouth at bedtime Amitriptyline Active 50 MG PO AT BEDTIME May 19, 2021 9:27pm Start: 01-07-2021 take 2 tablets by [facility] once daily amitriptyline (ELAVIL) 25 MG tablet Take 50 mg by mouth nightly 0 01/07/2021 Suspended Start: 01-07-2021 amitriptyline 25 mg oral tablet Dose : 25 mg = 1 tab(s), Oral, qHS, # 180 tab(s), 0 Refill(s) Start Date: 01/28/21 Status: Ordered apixaban 5 mg oral tablet (20 sources) Factor Xa Inhibitor Start: 09-05-2022 End: 05-06-2024 take 1 tablet by mouth twice daily Apixaban 5 mg tablet Discontinued 5 mg PO TWICE A DAY 180 1 October 10, 2022 1:00am October 16, 2022 2:56am Start: 09-05-2022 End: 10-18-2022 Eliquis 5 mg oral tablet [10 mg BID x 7days-then 5mg BID], Oral, BID, # 74 tab(s), 0 Refill(s), DVT Treatment Dosing, 160.3 Start Date: 09/18/22 Stop Date: 10/18/22 Status: Ordered Start: 09-05-2022 End: 10-10-2022 Apixaban (Eliquis) 5 mg tabl et Discontinued 0 .ROUTE .COMPLEX 82 0 September 05, 2022 1:00am October 10, 2022 1:51pm PE Take 2 tabs (10mg) tonight and for 5 more days followed by one tab twice daily Start: 09-05-2022 Apixaban Activ e 0 .ROUTE .COMPLEX 82 35 September 05, 2022 12:00am Take 2 tabs (10mg) tonight and for 5 more days followed by one tab twice daily ascorbic acid 500 mg oral tablet (20 sources) Vitamin C Start: 10-20-2022 End: 07-20-2023 Ascorbic Acid (Vitamin C) 50 0 mg Tablet Discontinued 500 mg PO 1200,1700 60 30 0 October 20, 2022 1:00am July 20, 2023 9:47pm take with iron take 1 tablet by mouth every oth er day Ascorbic Acid (VITAMIN C PO) Take 1 tablet by mouth every other day. Take with Iron tablets Active take 1 tablet by mouth every oth er day Ascorbic Acid (VITAMIN C PO) Take 1 tablet by mouth every other day. Take with Iron tablets 0 Active take 1 tablet by mouth every oth er day Ascorbic Acid (VITAMIN C PO) Take 1 tablet by mouth every other day. Take with Iron tablets 0 Suspended 30 ml bupivacaine hydrochloride 5 mg/ml injection (1 source) Amide Local Anesthetic Start: 05-14-2025 End: 05-14-2025 Once PRN Procedure, Starting on Sun05/14/25 at 1007, For 1 dose, Intraprocedure calcium chloride 0.0014 meq/ml / potassium chloride 0.004 meq/ml / sodium chloride 0.103 meq/ml / sodium lactate 0.028 meq/ml injectable solution (20 sources) Start: 05-29-2023 End: 06-08-2023 lactated Ringer's (LR) infusion Start: 05-22-2023 End: 05-22-2023 lactated ringers infusion Start: 05-08-2023 End: 05-08-2023 lactated ringers infusion Start: 02-22-2023 End: 02-28-2023 lactated ringers infusion Start: 11-21-2022 End: 11-21-2022 take 125 mL intravenously every hour 125 mL/hr, IntraV ENous, Continuous, Starting on Sun11/21/22 at 1915, Recovery (only) Start: 01-11-2022 lactated ringe rs infusion Start: 12-19-2021 lactated ringe rs infusion Start: 08-04-2021 lactated ringe rs infusion Start: 08-17-2020 lactated ringe rs infusion Start: 07-27-2020 lactated ringe rs infusion Start: 07-08-2020 lactated ringe rs infusion Start: 11-04-2018 End: 11-05-2018 take 100 mL intravenous route every hour 100 mL/hr, Intravenous, Continuous, Starting 11/04/18 at 1115, PACU (only) ceFAZolin (ANCEF) 3 g in dextrose 5 % 100 mL IVPB (2 sources) Start: 08-07-2020 3 g, Intraveno us, EVERY 8 HOURS, First dose on 08/07/20 at 1400, Until Discontinued Start: 07-27-2020 End: 07-27-2020 ceFAZolin (ANCEF) 3 g in dex trose 5 % 100 mL IVPB ceFAZolin (Ancef) 3,000 mg in sodium chloride 0.9 % 100 mL IVPB (2 sources) Start: 05-29-2023 End: 05-30-2023 take 3000 mg intravenously every eight hours 3,000 mg, IntraVENous, at 200 mL/hr, Administer over 30 Minutes, Every 8 hours, First dose on Sun05/29/23 at 1800, For 24 hours, Recovery & On Unit Mini-Bag Plus bag Suspected Indication (Select all that apply): Surgical Prophylaxis ceFAZolin (ANCEF) 3000 mg in sodium chloride 0.9% 100 mL IVPB (3 sources) Start: 01-11-2022 End: 01-11-2022 ceFAZolin (ANCEF) 3000 mg in sodium chloride 0.9% 100 mL IVPB Start: 12-19-2021 End: 12-19-2021 ceFAZolin (ANCEF) 3000 mg in sodium chloride 0.9% 100 mL IVPB Start: 08-04-2021 End: 08-04-2021 ceFAZolin (ANCEF) 3000 mg in sodium chloride 0.9% 100 mL IVPB ceFAZolin in sodium chloride 0.9% (Ancef) IVPB 3,000 mg (4 sources) Start: 11-11-2022 End: 11-13-2022 take 3000 mg intravenously every eight hours 3,000 mg, IntraVENous, Administer over 30 Minutes, Every 8 hours, First dose on 11/11/22 at 1630, For 4 days, Phase II/On Unit premix bag Suspected Indication (Select all that apply): Surgical Site Infection, Surgical Prophylaxis Start: 11-01-2022 End: 11-01-2022 take 3000 mg intravenously every eight hours 3,000 mg, IntraVENous, Administer over 30 Minutes, Every 8 hours, First dose on 11/01/22 at 0200, For 3 doses, Phase II/On Unit premix bag Suspected Indication (Select all that apply): Surgical Prophylaxis cefepime (Maxipime) 2,000 mg in sodium chloride 0.9 % 50 mL IVPB Mini-Bag Plus (2 sources) Start: 12-04-2022 End: 12-04-2022 take 2000 mg intravenously every eight hours cefepime (Maxipime) 2,000 mg in sodium chloride 0.9 % 50 mL IVPB Mini-Bag Plus celecoxib 200 mg oral capsule (2 sources) Nonsteroidal Anti-inflammatory Drug Start: 05-22-2023 End: 05-22-2023 celecoxib (CeleBREX) capsule 200 mg Start: 07-27-2020 End: 07-27-2020 celecoxib (CELEBREX) capsule 400 mg cephalexin 500 mg oral capsule (20 sources) Cephalosporin Antibacterial Start: 10-20-2022 End: 07-20-2023 take 1 capsule by mouth every six hours Cephalexin 500 mg Capsule Discontinued 500 mg PO EVERY 6 HOURS 40 10 0 October 20, 2022 1:00am July 20, 2023 9:47pm Start: 09-05-2022 End: 10-31-2022 cephalexin (Keflex) 500 MG c apsule take 1 capsule by mouth every 8 hours --TAKE ONE DOSE TONIGHT, AN... (REFER TO PRESCRIPTION NOTES). 0 09/05/2022 10/31/2022 Discontinued Start: 09-05-2022 Cephalexin Act filemon 500 MG PO THREE TIMES A DAY 13 September 05, 2022 12:00am Take one dose tonight and then three times daily for 4 more days Start: 04-28-2019 End: 05-09-2019 take 1 capsule by mouth four times daily cephALEXin (KEFLEX) 500 MG capsule Take 1 capsule by mouth 4 times daily for 7 days 28 capsule 0 04/28/2019 05/09/2019 Discontinued (Stop Taking at Discharge) citalopram 40 mg oral tablet (20 sources) Serotonin Reuptake Inhibitor Start: 05-29-2023 End: 06-08-2023 take 20 mg by mouth once daily 20 mg, Oral, Daily, First dose on Sun05/29/23 at 1800 Start: 12-04-2022 End: 12-13-2023 take 1 tablet by mouth once daily citalopram (CeleXA) 20 MG tablet Take 1 tablet (20 mg) by mouth daily. Do not start before December 13, 2022. 30 tablet 0 12/13/2022 12/13/2023 Active Start: 11-10-2022 End: 11-27-2022 take 20 mg by mouth once daily 20 mg, Oral, Daily, Fir st dose on Sun11/10/22 at 1900 Start: 03-23-2022 Start: 12-04-2018 End: 12-04-2018 take 40 mg by mouth once daily in the morning 40 mg, Oral, Every morning, First dose on Sun12/04/18 at 0900 Start: 11-02-2018 End: 11-05-2018 take 40 mg by mouth once daily in the morning 40 mg, Oral, Every morning, First dose on Sun11/02/18 at 0900 Start: 08-25-2018 End: 12-04-2022 take 1 tablet by mouth in the morning citalopram (CeleXA) 40 MG tablet Take 40 mg by mouth in the morning. 0 03/23/2022 12/04/2022 Discontinued (Med list cleanup) 50 ml clindamycin 12 mg/ml injection (4 sources) Lincosamide Antibacterial Start: 12-03-2022 End: 12-05-2022 take 600 mg intravenously every six hours clindamycin in D5W (Cleocin) IVPB 600 mg cyclobenzaprine hydrochloride 10 mg oral tablet (20 sources) Muscle Relaxant Start: 06-06-2014 End: 05-06-2024 take 1 tablet by mouth at bedtime Cyclobenzaprine 10 MG tablet Discontinued 10 mg PO AT BEDTIME July 20, 2023 12:00am May 06, 2024 9:14am muscle spasm daptomycin (CUBICIN) 245 mg in sodium chloride 0.9 % 50 mL IVPB (1 source) Start: 05-05-2019 End: 05-08-2019 daptomycin (CUBICIN) 245 mg in sodium chloride 0.9 % 50 mL IVPB DAPTOmycin (Cubicin) 600 mg in sodium chloride 0.9 % 50 mL IVPB (2 sources) Start: 12-11-2022 End: 12-12-2022 DAPTOmycin (Cubicin) 600 mg in sodium chloride 0.9 % 50 mL IVPB dexameth sod hgxo-yvtsl-gere (TAP) syringe SOSY 30 mL (1 source) Start: 08-04-2021 End: 08-04-2021 dexameth sod nvrj-csdku-sykp (TAP) syringe SOSY 30 mL dexamethasone sod phos-bupiv (TAP) syringe 10 mL (1 source) Start: 08-04-2021 End: 08-04-2021 dexamethasone sod phos-bupiv (TAP) syringe 10 mL diazePAM 5 mg oral tablet (1 source) Benzodiazepine Start: 05-07-2019 End: 05-07-2019 diazepam (VALIUM) tablet 5 mg diphenhydrAMINE hydrochloride 10 mg/ml / zinc acetate 1 mg/ml topical cream (2 sources) Histamine-1 Receptor Antagonist Start: 11-23-2022 End: 11-27-2022 Topical, 3 times daily PRN, itching, Starting on [facility] 11/23/22 at 1540 doxycycline hyclate 100 mg oral tablet (20 sources) Tetracycline-class Drug Start: 10-01-2021 End: 10-03-2021 take 1 tablet by mouth twice daily Doxycycline Hyclate 100 mg tablet Discontinued 100 mg PO TWICE A DAY October 01, 2021 1:00am October 03, 2021 9:55am Start: 11-17-2019 End: 01-28-2020 take 1 tablet by mouth twice daily Doxycycline Hyclate 100 mg tablet Discontinued 100 mg PO TWICE A DAY November 17, 2019 1:00am January 28, 2020 8:53am DULoxetine 30 mg delayed release oral capsule (9 sources) Serotonin and Norepinephrine Reuptake Inhibitor Start: 10-16-2022 End: 07-20-2023 take 1 capsule by mouth once daily Duloxetine 30 mg capsule,delayed release(DR/EC) Discontinued 30 mg PO DAILY October 16, 2022 1:00am July 20, 2023 9:48pm depression 0.3 ml enoxaparin sodium 100 mg/ml prefilled syringe (8 sources) Low Molecular Weight Heparin Start: 05-29-2023 End: 06-08-2023 inject 1 dose by subcutaneous injection twice daily 30 mg, SubCUTAneous, Every 12 hours scheduled (2 times per day), First dose on Sun05/29/23 at 2100 Indication of Use: Prophylaxis-DVT/PE Start: 12-06-2022 End: 12-11-2022 inject 40 mg by subcutaneous injection once daily 40 mg, SubCUTAneous, Daily, First dose (after last modification) on Sun12/06/22 at 0900, Phase II/On Unit Indication of Use: Prophylaxis-DVT/PE Start: 11-22-2022 End: 11-23-2022 inject 30 mg by subcutaneous injection once daily 30 mg, SubCUTAneous, Daily, First dose on Sun11/22/22 at 1700 Indication of Use: Prophylaxis-DVT/PE Start: 05-04-2019 inject 40 mg by subc utaneous injection once daily 40 mg, Subcutaneous, DAILY, First dose on Sun05/04/19 at 0900 Start: 11-01-2018 End: 11-05-2018 enoxaparin (LOVENOX) syringe 40 mg ergocalciferol 1.25 mg oral capsule (2 sources) Provitamin D2 Compound Start: 11-12-2022 End: 11-27-2022 take 1.25 mg by mouth every week 1.25 mg (50,000 Units), Oral, Weekly, First dose on Sun11/12/22 at 0900 ertapenem (3 sources) Penem Antibacterial Start: 06-06-2023 End: 07-12-2023 take 1 g intravenously once daily ERTAPENEM SODIUM IV Infuse 1 g into a venous catheter daily. 0 06/06/2023 07/12/2023 Start: 06-06-2023 End: 07-12-2023 take 1 g intravenously once daily ERTAPENEM SODIUM IV Infuse 1 g into a venous catheter daily. 0 06/06/2023 07/12/2023 Active ertapenem (INVanz) 1,000 mg in sodium chloride 0.9 % 50 mL IVPB Mini-Bag Plus (4 sources) Start: 06-06-2023 End: 06-08-2023 ertapenem (INVanz) 1,000 mg in sodium chloride 0.9 % 50 mL IVPB Mini-Bag Plus Start: 05-30-2023 End: 06-06-2023 ertapenem (INVanz) 1,000 mg in sodium chloride 0.9 % 50 mL IVPB Mini-Bag Plus escitalopram 20 mg oral tablet (20 sources) Serotonin Reuptake Inhibitor Start: 10-16-2022 End: 12-19-2024 take 10 mg by mouth once daily Escitalopram Oxalate 20 mg tablet Discontinued 10 mg PO DAILY October 16, 2022 1:00am December 19, 2024 1:23pm depression Start: 10-16-2022 End: 10-21-2023 take 20 mg by mouth once daily Escitalopram Oxalate Ac tive 20 MG PO DAILY October 16, 2022 1:00am famotidine 20 mg oral tablet (20 sources) Histamine-2 Receptor Antagonist Start: 05-29-2023 End: 05-29-2023 famotidine (Pepcid) tablet 20 mg Start: 05-22-2023 End: 05-22-2023 famotidine (Pepcid) tablet 2 0 mg Start: 03-23-2022 End: 07-20-2023 take 1 tablet by mouth twice daily Famotidine 20 mg Tablet Discontinued 20 mg PO TWICE A DAY August 31, 2022 1:00am July 20, 2023 9:48pm GERD Start: 01-11-2022 End: 01-11-2022 famotidine (PEPCID) tablet 2 0 mg Start: 12-19-2021 End: 12-19-2021 famotidine (PEPCID) tablet 2 0 mg Start: 01-28-2021 End: 10-25-2021 famotidine (PEPCID) tablet 2 0 mg Start: 08-17-2020 End: 08-17-2020 famotidine (PEPCID) tablet 2 0 mg Start: 07-27-2020 End: 07-27-2020 famotidine (PEPCID) tablet 2 0 mg Start: 07-08-2020 End: 07-08-2020 famotidine (PEPCID) tablet 2 0 mg Start: 11-04-2018 End: 11-05-2018 take 20 mg by mouth every twelve hours 20 mg, Oral, Every 12 hours scheduled, First dose on Sun11/04/18 at 1630 take 1 tablet by uriel twice daily famotidine (Pepcid) 20 MG tablet Take 20 mg by mouth 2 times daily. Active 2 ml fentaNYL 0.05 mg/ml injection (14 sources) Opioid Agonist Start: 05-29-2023 End: 05-29-2023 fentaNYL (Sublimaze) injection 50 mcg Start: 05-22-2023 End: 05-22-2023 fentaNYL (Sublimaze) injecti on 50 mcg Start: 05-22-2023 End: 05-22-2023 fentaNYL (Sublimaze) injecti on 25 mcg Start: 02-22-2023 End: 02-28-2023 fentaNYL (Sublimaze) injecti on 50 mcg Start: 02-22-2023 End: 02-28-2023 fentaNYL (Sublimaze) injecti on 25 mcg Start: 08-04-2021 fentaNYL (SUBL IMAZE) injection 100 mcg Start: 07-27-2020 fentaNYL (SUBL IMAZE) injection 50 mcg Start: 07-27-2020 fentaNYL (SUBL IMAZE) injection 25 mcg Start: 07-08-2020 fentaNYL (SUBL IMAZE) injection 50 mcg Start: 07-08-2020 fentaNYL (SUBL IMAZE) injection 25 mcg Start: 11-04-2018 End: 11-04-2018 25 mcg, Intravenous, Every 5 min PRN, Pain, Starting Sun11/04/18 at 1015, For 4 doses, PACU (only) [] Do not give more than 100 mcg while in PACU. fluticasone propionate 0.05 mg/actuat metered dose nasal spray (20 sources) Corticosteroid Start: 07-21-2023 End: 05-16-2025 take 50 ug nasal route once daily Fluticasone Propionate (Flonase Allergy Relief) 50 mcg/actuation spray,suspension Discontinued 1 NMA INTRANASAL DAILY July 21, 2023 12:00am May 16, 2025 5:50am allergies administer into each nostril Start: 07-21-2023 take 1 spray(s) nasa l route once daily Fluticasone Propionate (Flonase Allergy Relief) 50 mcg/actuation spray,suspension Active 1 SPRAY INTRANASAL DAILY July 21, 2023 12:00am administer into each nostril Start: 11-10-2022 End: 11-27-2022 1 spray, Each Nostril, 2 adi es daily, First dose on Sun11/10/22 at 2100 Shake gently. Before first use, prime pump (press 6 times until fine spray appears). After use, clean tip and replace cap. Start: 11-03-2022 fluticasone (F lonase) 50 MCG/ACT nasal spray Administer into affected nostril(s). 11/03/2022 Active Start: 08-18-2020 fluticasone (F LOVENT HFA) 44 MCG/ACT inhaler 1 puff Start: 01-28-2020 End: 01-28-2020 Fluticasone Propionate 50 mcg/actuation spray,suspension Discontinued 2 NMA INTRANASAL DAILY 16 January 28, 2020 12:00am January 28, 2020 2:30pm Start: 01-28-2020 End: 01-28-2020 Fluticasone Propionate Disco ntinued 2 SPRAY INTRANASAL DAILY January 28, 2020 12:00am January 28, 2020 2:30pm take 1 spray(s) nasa l route once daily fluticasone (Flonase) 50 mcg/actuation nasal spray Administer 1 spray into each nostril once daily. Shake gently. Before first use, prime pump. After use, clean tip and replace cap. Active End: 12-04-2022 fluticasone (Flonase) 50 MCG /ACT nasal spray 1 spray. 0 12/04/2022 Discontinued (Med list cleanup) 60 actuat formoterol fumarate 0.005 mg/actuat / mometasone furoate 0.2 mg/actuat metered dose inhaler (9 sources) Corticosteroid, beta2-Adrenergic Agonist Start: 05-29-2023 End: 06-08-2023 take 2 puff(s) by mouth twice daily 2 puff, Inhalation, 2 times daily, First dose on Sun05/29/23 at 2000 Rinse mouth with water after use to reduce aftertaste and incidence of candidiasis. Do not swallow. Start: 12-04-2022 End: 12-12-2022 take 2 puff(s) by mouth twice daily 2 puff, Inhalation, 2 times daily RT, First dose on Sun12/04/22 at 0100 Rinse mouth with water after use to reduce aftertaste and incidence of candidiasis. Do not swallow. Start: 11-10-2022 End: 11-27-2022 take 2 puff(s) by mouth twice daily 2 puff, Inhalation, 2 times daily RT, First dose on Sun11/10/22 at 2000 Rinse mouth with water after use to reduce aftertaste and incidence of candidiasis. Do not swallow. Start: 10-31-2022 End: 11-02-2022 take 2 puff(s) by mouth twice daily 2 puff, Inhalation, 2 times daily RT, First dose on Sun10/31/22 at 2230, Phase II/On Unit Rinse mouth with water after use to reduce aftertaste and incidence of candidiasis. Do not swallow. Start: 05-04-2019 take 2 puff(s) by in halation twice daily 2 puff, Inhalation, 2 TIMES DAILY, First dose on Sun05/04/19 at 1315 Substituted for Budesonide-Formoterol (SYMBICORT). furosemide 40 mg oral tablet (20 sources) Loop Diuretic Start: 08-06-2020 End: 08-06-2020 furosemide (LASIX) injection 40 mg Start: 04-10-2017 End: 11-02-2022 take 1 tablet by mouth twice daily Furosemide 40 MG tablet Discontinued 40 mg PO TWICE A DAY 10 0 April 10, 2017 12:00am June 13, 2017 12:57pm 250 ml glucose 50 mg/ml / sodium chloride 9 mg/ml injection (1 source) Start: 05-05-2019 End: 05-08-2019 dextrose 5 % and 0.9 % sodium chloride infusion 3 ml heparin sodium, porcine 100 unt/ml prefilled syringe (8 sources) Unfractionated Heparin, Anti-coagulant Start: 12-07-2022 End: 12-12-2022 take 250 [IU] intraluminal route every twelve hours heparin flush injection 250 Units Start: 11-22-2022 End: 11-27-2022 take 250 [IU] intraluminal route every twelve hours 250 Units, IntraCATHeter, Every 12 hours, First dose on Sun11/22/22 at 1715 Each lumen. Do NOT administer to lumens with continuous fluids currently infusing. Line Care. Use 10 mL or larger syringe. Start: 11-22-2022 End: 11-27-2022 250 Units, IntraCATHeter, MO N, line care, after blood draws and after infusion, Starting on Sun11/22/22 at 1710 Do NOT administer to lumens with continuous fluids currently infusing. Line Care. Use 10 mL or larger syringe. 1 ml HYDROmorphone hydrochloride 1 mg/ml cartridge (20 sources) Opioid Agonist Start: 05-31-2023 End: 05-31-2023 HYDROmorphone (Dilaudid) injection 0.5 mg Start: 05-29-2023 End: 05-29-2023 HYDROmorphone (Dilaudid) inj ection 0.5 mg Start: 05-22-2023 End: 05-22-2023 HYDROmorphone (Dilaudid) inj ection 0.5 mg Start: 05-08-2023 End: 05-08-2023 HYDROmorphone (Dilaudid) 1 M G/ML injection - Pyxis ADS Override Pull Start: 05-08-2023 End: 05-08-2023 HYDROmorphone (Dilaudid) inj ection 0.5 mg Start: 12-05-2022 End: 12-05-2022 HYDROmorphone (Dilaudid) inj ection 0.5 mg Start: 12-03-2022 End: 12-03-2022 HYDROmorphone (Dilaudid) inj ection 1 mg Start: 11-20-2022 End: 11-20-2022 take 0.5 mg by mouth once 0.5 mg, IntraVENous, Once, O n 11/20/22 at 0845, For 1 dose If oral and IV narcotics ordered, use oral first and only use IV if oral is ineffective or cannot take oral. Do Not give oral and IV within 1 hour of each other unless specifically ordered. Start: 11-16-2022 End: 11-16-2022 0.5 mg, IntraVENous, Every 5 min PRN, severe pain (7-10), Starting on Xochilt 11/16/22 at 1928, For 4 doses, Recovery (only) Phase I and Phase II- Initial therapy for severe pain (7-10). Restricted to a 90 minute time frame starting when the patient can verbally state their pain score. If after 2 doses the pain score does not decrease by more than one point, then call the provider. If oral meds are utilized, do not return to initial therapy medications. Start: 11-16-2022 End: 11-16-2022 take 0.5 mg by mouth once 0.5 mg, IntraVENous, Once, O n Xochilt 11/16/22 at 1800, For 1 dose, Preprocedure If oral and IV narcotics ordered, use oral first and only use IV if oral is ineffective or cannot take oral. Do Not give oral and IV within 1 hour of each other unless specifically ordered. Start: 11-16-2022 End: 11-16-2022 take 0.5 mg by mouth once 0.5 mg, IntraVENous, Once, O n Xochilt 11/16/22 at 1800, For 1 dose, Preprocedure If oral and IV narcotics ordered, use oral first and only use IV if oral is ineffective or cannot take oral. Do Not give oral and IV within 1 hour of each other unless specifically ordered. Start: 11-14-2022 End: 11-14-2022 0.5 mg, IntraVENous, Every 5 min PRN, severe pain (7-10), Starting on 11/14/22 at 1350, For 4 doses, Recovery (only) Phase I and Phase II- Initial therapy for severe pain (7-10). Restricted to a 90 minute time frame starting when the patient can verbally state their pain score. If after 2 doses the pain score does not decrease by more than one point, then call the provider. If oral meds are utilized, do not return to initial therapy medications. Start: 11-11-2022 End: 11-11-2022 0.5 mg, IntraVENous, Every 5 min PRN, severe pain (7-10), Starting on 11/11/22 at 0841, For 4 doses, Recovery (only) Phase I and Phase II- Initial therapy for severe pain (7-10). Restricted to a 90 minute time frame starting when the patient can verbally state their pain score. If after 2 doses the pain score does not decrease by more than one point, then call the provider. If oral meds are utilized, do not return to initial therapy medications. Start: 10-31-2022 End: 10-31-2022 HYDROmorphone (Dilaudid) inj ection 0.5 mg Start: 01-11-2022 HYDROmorphone (DILAUDID) injection 0.5 mg Start: 01-11-2022 HYDROmorphone (DILAUDID) injection 0.25 mg Start: 12-19-2021 HYDROmorphone (DILAUDID) injection 0.5 mg Start: 12-19-2021 HYDROmorphone (DILAUDID) injection 0.25 mg Start: 08-04-2021 HYDROmorphone (DILAUDID) injection 0.5 mg Start: 08-04-2021 HYDROmorphone (DILAUDID) injection 1 mg Start: 08-04-2021 HYDROmorphone (DILAUDID) injection 0.25 mg Start: 08-17-2020 End: 08-17-2020 HYDROmorphone (DILAUDID) inj ection 0.5 mg Start: 07-27-2020 HYDROmorphone (DILAUDID) injection 0.5 mg Start: 07-27-2020 HYDROmorphone (DILAUDID) injection 0.25 mg Start: 07-08-2020 HYDROmorphone (DILAUDID) injection 0.5 mg Start: 07-08-2020 HYDROmorphone (DILAUDID) injection 0.25 mg Start: 05-07-2019 End: 05-07-2019 HYDROmorphone (DILAUDID) inj ection 0.5 mg Start: 05-06-2019 End: 05-06-2019 HYDROmorphone (DILAUDID) 1 M G/ML injection Start: 05-06-2019 End: 05-06-2019 HYDROmorphone (DILAUDID) inj ection 0.5 mg Start: 05-06-2019 End: 05-06-2019 HYDROmorphone (DILAUDID) inj ection 0.25 mg Start: 11-04-2018 End: 11-04-2018 0.5 mg, Intravenous, Every 5 min PRN, Pain, Starting Sun11/04/18 at 1015, For 6 doses, PACU (only) [] Give if fentanyl not effective or not ordered. [] Do not give more than 3 mg total. HYDROmorphone (DILAUDID) 0.5 mg/mL injection - ADS Override Pull (1 source) Start: 11-01-2018 End: 11-01-2018 HYDROmorphone (DILAUDID) 0.5 mg/mL injection - ADS Override Pull HYDROmorphone (DILAUDID) 0.5 mg/mL injection 0.25-0.5 mg (1 source) Start: 11-01-2018 End: 11-05-2018 take 0.25-0.5 mg intravenous route every three hours as needed HYDROmorphone (DILAUDID) 0.5 mg/mL injection 0.25-0.5 mg HYDROmorphone (DILAUDID) 0.5 mg/mL injection 0.5-1.5 mg (1 source) Start: 11-04-2018 End: 11-05-2018 take 0.5-1.5 mg intravenous route every three hours as needed 0.5-1.5 mg, Intravenous, Every 3 hours PRN (may repeat), moderate to severe pain, Starting Sun11/04/18 at 1345 [] Initiate with 1 mg every 3 hours prn moderate to severe pain. [] For unrelieved pain, may give additional 0.5 mg within 30 minutes of initial dose. [] If pain is RELIEVED after repeat dose, change to 1.5 mg every 3 hours prn moderate to severe pain. [] If pain is UNrelieved after repeat dose or patient requires dose reduction, call physician. [] May use IV for breakthrough or if unable to tolerate oral route. HYDROmorphone (Dilaudid) injection 0.25 mg (4 sources) Start: 05-29-2023 End: 06-08-2023 take 0.25 mg intravenously every four hours as needed for pain HYDROmorphone (Dilaudid) injection 0.25 mg Start: 10-31-2022 End: 11-02-2022 take 0.25 mg intravenously every four hours as needed for pain HYDROmorphone (Dilaudid) injection 0.25 mg iron sucrose (Venofer) 200 mg in sodium chloride 0.9 % 100 mL IVPB (2 sources) Start: 12-12-2022 End: 12-12-2022 iron sucrose (Venofer) 200 mg in sodium chloride 0.9 % 100 mL IVPB 1 ml ketorolac tromethamine 30 mg/ml cartridge (1 source) Nonsteroidal Anti-inflammatory Drug, Cyclooxygenase Inhibitor Start: 05-08-2019 End: 05-07-2019 ketorolac (TORADOL) injection 30 mg Start: 05-08-2019 End: 05-07-2019 ketorolac (TORADOL) injectio n 30 mg labetalol (Normodyne,Trandat e) injection 5 mg (4 sources) Start: 05-22-2023 End: 05-22-2023 labetalol (Normodyne,Trandat e) injection 5 mg Start: 05-08-2023 End: 05-08-2023 labetalol (Normodyne,Trandat e) injection 5 mg Start: 02-22-2023 End: 02-28-2023 labetalol (Normodyne,Trandat e) injection 5 mg levoFLOXacin 750 mg oral tablet (3 sources) Quinolone Antimicrobial Start: 01-17-2025 End: 01-27-2025 take 1 tablet by mouth once daily Levofloxacin 750 mg tablet Discontinued 750 mg PO DAILY 5 0 January 17, 2025 12:00am January 27, 2025 10:37am linezolid 600 mg oral tablet (18 sources) Oxazolidinone Antibacterial Start: 02-01-2022 End: 02-01-2023 take 1 tablet by mouth every twelve hours linezolid (Zyvox) 600 MG tablet TAKE 1 TABLET BY MOUTH EVERY 12 HOURS UNTIL GONE 10 tablet 0 02/01/2022 10/31/2022 Discontinued LORazepam 0.5 mg oral tablet (20 sources) Benzodiazepine Start: 05-08-2023 LORazepam (Ativan) injection 0.5 mg Start: 11-16-2022 End: 11-16-2022 take 0.5 mg intravenously once as needed for anxiety 0.5 mg, IntraVENous, Once PRN, for anxiety or muscle spasm., Starting on Xochilt 11/16/22 at 1928, For 1 dose, Recovery (only) For IV doses dilute dose with 1ml NS. Start: 10-31-2022 End: 10-31-2022 LORazepam (Ativan) injection 0.5 mg Start: 08-18-2020 End: 06-08-2023 take 1 tablet by mouth every eight hours as needed for anxiety and anxiety and anxiety LORazepam (Ativan) 0.5 MG tablet Indications: Anxiety Take 1 tablet (0.5 mg) by mouth every 8 hours as needed for anxiety for up to 7 days. 5 tablet 0 12/12/2022 Active Start: 05-07-2019 End: 05-07-2019 LORazepam (ATIVAN) injection 0.5 mg Start: 05-07-2019 End: 05-07-2019 LORazepam (ATIVAN) 2 MG/ML injection Start: 05-07-2019 End: 05-07-2019 LORazepam (ATIVAN) injection 0.5 mg Start: 05-06-2019 End: 05-06-2019 LORazepam (ATIVAN) injection 0.5 mg Start: 04-28-2019 End: 06-08-2019 take 1 tablet by mouth every six hours as needed for anxiety LORazepam (ATIVAN) 0.5 MG tablet Indications: Current episode of major depressive disorder without prior episode, unspecified depression episode severity Take 1 tablet by mouth every 6 hours as needed for Anxiety for up to 30 days. 6 tablet 0 05/09/2019 06/08/2019 Active meloxicam 7.5 mg oral tablet (20 sources) Nonsteroidal Anti-inflammatory Drug Start: 01-16-2014 End: 09-05-2022 take 1 tablet by mouth twice daily as needed for pain Meloxicam 7.5 MG tablet Discontinued 7.5 mg PO TWICE A DAY as needed for KNEE PAIN 0 0 October 03, 2021 9:55am September 05, 2022 1:31pm 1 ml meperidine hydrochloride 25 mg/ml cartridge (9 sources) Opioid Agonist Start: 05-22-2023 End: 05-22-2023 meperidine (Demerol) injection 12.5 mg Start: 05-08-2023 End: 05-08-2023 meperidine (Demerol) injecti on 12.5 mg Start: 02-22-2023 End: 02-28-2023 meperidine (Demerol) injecti on 12.5 mg Start: 01-11-2022 meperidine (DE MEROL) injection 12.5 mg Start: 12-19-2021 meperidine (DE MEROL) injection 12.5 mg Start: 08-04-2021 meperidine (DE MEROL) injection 12.5 mg Start: 07-27-2020 meperidine (DE MEROL) injection 12.5 mg Start: 07-08-2020 meperidine (DE MEROL) injection 12.5 mg meropenem (Merrem) 2,000 mg in sodium chloride 0.9 % 100 mL IVPB (2 sources) Start: 12-05-2022 End: 12-12-2022 take 2000 mg intravenously every eight hours meropenem (Merrem) 2,000 mg in sodium chloride 0.9 % 100 mL IVPB methocarbamol 500 mg oral tablet (20 sources) Muscle Relaxant Start: 12-04-2022 End: 12-12-2022 take 1 dose by mouth three times daily 750 mg, Oral, Every 8 hours scheduled (3 times per day), First dose on Sun12/04/22 at 0600 Start: 11-27-2022 End: 06-08-2023 take 1 tablet by mouth every eight hours as needed methocarbamol (Robaxin) tablet 750 mg Start: 11-27-2022 End: 12-07-2022 Start: 11-22-2022 End: 11-27-2022 take 1 dose by mouth three times daily 750 mg, Oral, Every 8 hours scheduled (3 times per day), First dose on Sun11/22/22 at 1400 Start: 10-31-2022 End: 11-02-2022 take 1 tablet by mouth every eight hours as needed methocarbamol (Robaxin) tablet 1,000 mg methylPREDNISolone 4 mg oral tablet (13 sources) Corticosteroid Start: 05-26-2015 End: 06-01-2015 Methylprednisolone 4 MG tablet Discontinued 4 mg PO DIRECTED 1 May 26, 2015 12:00am June 01, 2015 10:49am 1 ml morphine sulfate 4 mg/ml injection (12 sources) Opioid Agonist Start: 11-12-2022 End: 11-12-2022 take 2 mg by mouth once 2 mg, IntraVENous, Once, On Sun11/12/22 at 1045, For 1 dose If oral and IV narcotics ordered, use oral first and only use IV if oral is ineffective or cannot take oral. Do Not give oral and IV within 1 hour of each other unless specifically ordered. Start: 11-12-2022 End: 11-17-2022 take 4 mg intravenously every four hours as needed for pain 4 mg, IntraVENous, Every 4 hours PRN, severe pain (7-10), Starting on 11/12/22 at 1033 If oral and IV narcotics ordered, use oral first and only use IV if oral is ineffective or cannot take oral. Do Not give oral and IV within 1 hour of each other unless specifically ordered. Start: 11-10-2022 End: 11-12-2022 take 2 mg intravenously every four hours as needed for pain 2 mg, IntraVENous, Every 4 hours PRN, severe pain (7-10), Starting on Sun11/10/22 at 1856 If oral and IV narcotics ordered, use oral first and only use IV if oral is ineffective or cannot take oral. Do Not give oral and IV within 1 hour of each other unless specifically ordered. Start: 05-07-2019 morphine sulfa te (PF) injection 4 mg Start: 05-06-2019 End: 05-06-2019 morphine sulfate (PF) inject ion 2 mg Start: 05-04-2019 End: 05-07-2019 morphine sulfate (PF) inject ion 2 mg Start: 05-04-2019 End: 05-04-2019 morphine sulfate (PF) inject ion 4 mg Start: 05-03-2019 End: 05-03-2019 morphine (PF) injection 2 mg naloxone (Narcan) 0.4 mg in 0.9% sodium chloride 10 mL syringe (4 sources) Start: 05-29-2023 End: 06-08-2023 naloxone (Narcan) 0.4 mg in 0.9% sodium chloride 10 mL syringe Start: 10-31-2022 End: 11-02-2022 naloxone (Narcan) 0.4 mg in 0.9% sodium chloride 10 mL syringe naloxone (NARCAN) injection 0.1 mg (1 source) Start: 11-01-2018 End: 11-05-2018 naloxone (NARCAN) injection 0.1 mg Nebulizers (Lc Plus) 1 EACH Kit (13 sources) Start: 06-01-2015 End: 11-18-2015 Nebulizers (Lc Plus) 1 EACH Kit Discontinued 1 EACH MC DIRECTED June 01, 2015 10:48am November 18, 2015 12:14pm Nebulizer machine and kit x 1 Use as directed per aerosol rx Start: 06-01-2015 End: 11-18-2015 Nebulizers (Lc Plus) 1 EACH Kit Discontinued 1 NMA MC DIRECTED June 01, 2015 12:00am November 18, 2015 12:14pm asthma/copd Nebulizer machine and kit x 1 Use as directed per aerosol rx Start: 06-01-2015 End: 11-18-2015 Nebulizers (Lc Plus) 1 EACH Kit Discontinued 1 NMA MC DIRECTED June 01, 2015 12:00am November 18, 2015 12:14pm Nebulizer machine and kit x 1 Use as directed per aerosol rx Start: 06-01-2015 End: 11-18-2015 Nebulizers (Lc Plus) 1 EACH Kit Discontinued 1 EACH MC DIRECTED June 01, 2015 12:00am November 18, 2015 12:14pm Nebulizer machine and kit x 1 Use as directed per aerosol rx Start: 06-01-2015 End: 11-18-2015 Nebulizers (Lc Plus) 1 EACH Kit Discontinued 1 EACH MC DIRECTED May 31, 2015 11:00pm November 18, 2015 11:14am Nebulizer machine and kit x 1 Use as directed per aerosol rx omeprazole 40 mg delayed release oral capsule (20 sources) Proton Pump Inhibitor Start: 07-12-2015 End: 01-27-2025 take 1 capsule by mouth once daily Omeprazole 40 mg capsule,delayed release(DR/EC) Discontinued 40 mg PO DAILY June 15, 2021 12:00am January 27, 2025 10:38am gerd Start: 04-12-2009 omeprazole (MO ILOSEC) 20 MG capsule Take by mouth Daily 0 04/12/2009 Active ondansetron ODT (Zofran-ODT) disintegrating tablet 4 mg (4 sources) Start: 05-29-2023 End: 06-08-2023 take 1 tablet by mouth every eight hours as needed for nausea and vomiting ondansetron ODT (Zofran-ODT) disintegrating tablet 4 mg Start: 12-04-2022 End: 12-12-2022 take 1 tablet by mouth every eight hours as needed for nausea and vomiting ondansetron ODT (Zofran-ODT) disintegrating tablet 4 mg oxyCODONE (20 sources) Opioid Agonist Start: 05-29-2023 End: 06-08-2023 take 1 tablet by mouth every four hours as needed for pain oxyCODONE (Roxicodone) immediate release tablet 5 mg Start: 02-22-2023 End: 02-28-2023 oxyCODONE (Roxicodone) immed iate release tablet 5 mg Start: 11-27-2022 End: 12-12-2022 take 1 tablet by mouth every four hours as needed for pain oxyCODONE (Roxicodone) 10 MG immediate release tablet Indications: Stump pain (HCC) Take 1 tablet (10 mg) by mouth every 4 hours as needed for moderate pain (4-6) for up to 5 days. 15 tablet 0 11/27/2022 12/04/2022 Discontinued (Med list cleanup) Start: 11-10-2022 End: 11-10-2022 take 5 mg by mouth once 5 mg, Oral, Once, On 11/01 at 1445, For 1 dose Start: 11-02-2022 End: 11-27-2022 take 10 mg by mouth every four hours as needed for pain 10 mg, Oral, Every 4 hours PRN, moderate pain (4-6), Starting on Sun11/12/22 at 1033 Start: 11-02-2022 End: 11-27-2022 take 1 tablet by mouth every four hours as needed for pain 5 mg, Oral, Every 4 hours PRN, moderate pain (4-6), Starting on Sun11/10/22 at 1856 Start: 10-31-2022 End: 11-02-2022 take 1 tablet by mouth every four hours as needed for pain oxyCODONE (Roxicodone) immediate release tablet 5 mg Start: 08-04-2021 End: 08-04-2021 oxyCODONE (ROXICODONE) immed iate release tablet 5 mg Start: 08-17-2020 oxyCODONE (FLORIDALMA ICODONE) immediate release tablet 5 mg Start: 08-06-2020 oxyCODONE (FLORIDALMA ICODONE) immediate release tablet 5 mg Start: 07-08-2020 End: 07-15-2020 take 1 tablet by mouth every six hours as needed for pain, then take 1 tablet by mouth as needed for pain oxyCODONE (ROXICODONE) 5 MG immediate release tablet Indications: Post-op pain Take 1 tablet by mouth every 6 hours as needed for Pain for up to 7 days. Intended supply: 3 days. Take lowest dose possible to manage pain 28 tablet 0 07/08/2020 07/15/2020 Active Start: 07-08-2020 End: 07-08-2020 oxyCODONE (ROXICODONE) immed iate release tablet 5 mg Start: 05-09-2019 End: 05-12-2019 take 0.5 tablet by mouth every six hours as needed for pain oxyCODONE (OXY-IR) 15 MG immediate release tablet Indications: Right foot infection Take 0.5 tablets by mouth every 6 hours as needed for Pain for up to 3 days. 5 tablet 0 05/09/2019 05/12/2019 Active Start: 05-03-2019 take 7.5 mg by mouth every four hours as needed for pain 7.5 mg, Oral, EVERY 4 HOURS PRN, Pain Severe (7-10), Starting 05/03/19 at 2141 Start: 11-05-2018 End: 11-12-2018 oxyCODONE (ROXICODONE) 5 MG immediate release tablet Indications: Cellulitis of right foot , Pain from implanted hardware, initial encounter Take 1 (one) tablet to 2 (two) tablets (5-10 mg total) by mouth every 4 (four) hours as needed for pain . 20 tablet 0 11/05/2018 11/12/2018 Active Start: 11-05-2018 End: 11-05-2018 take 5 mg by mouth every four hours as needed oxyCODONE (ROXICODONE) 10 mg/0.5 mL concentrated solution 5 mg Start: 11-04-2018 End: 11-04-2018 take 5 mg under the tongue every twenty-four hours as needed 5 mg, Sublingual, Once as needed, moderate to severe pain, Pain, Starting 11/04/18 at 1015, For 1 dose, PACU (only) Use first if unable to tolerate oral route. Oxygen, Home (Home Oxygen) (13 sources) Start: 06-18-2015 End: 11-18-2015 Oxygen, Home (Home Oxygen) Discontinued 2 - 4 LPM NASAL DAILY June 18, 2015 7:55am November 18, 2015 12:14pm Start: 06-18-2015 End: 11-18-2015 Oxygen, Home (Home Oxygen) D iscontinued 2 - 4 LPM NASAL DAILY June 18, 2015 12:00am November 18, 2015 12:14pm Acute hypoxia Start: 06-18-2015 End: 11-18-2015 Oxygen, Home (Home Oxygen) D iscontinued 2 - 4 LPM NASAL DAILY June 18, 2015 12:00am November 18, 2015 12:14pm Start: 06-18-2015 End: 11-18-2015 Oxygen, Home (Home Oxygen) D iscontinued 2 - 4 LPM NASAL DAILY June 17, 2015 11:00pm November 18, 2015 11:14am pantoprazole 40 mg delayed release oral tablet (13 sources) Proton Pump Inhibitor Start: 01-27-2025 End: 05-16-2025 take 1 tablet by mouth once daily Pantoprazole 40 mg tablet,delayed release (DR/EC) Discontinued 40 mg PO daily January 27, 2025 12:00am May 16, 2025 5:51am Start: 05-30-2023 End: 06-08-2023 take 40 mg by mouth once daily before breakfast 40 mg, Oral, Daily before breakfast, First dose on Sun05/30/23 at 0700 Substituted for omeprazole (Prilosec). Do not crush, chew, or split. Start: 12-04-2022 End: 12-12-2022 pantoprazole (ProtoNix) EC t ablet 40 mg Start: 11-11-2022 End: 11-27-2022 take 20 mg by mouth once daily before breakfast 20 mg, Oral, Daily before breakfast, First dose on Sun11/11/22 at 0700 Do not crush, chew, or split. Start: 08-19-2020 pantoprazole ( PROTONIX) tablet 20 mg Start: 05-05-2019 take 40 mg by mouth once daily before breakfast 40 mg, Oral, DAILY BEFORE BREAKFAST, First dose on Sun05/05/19 at 0700 Do not crush or break. Substituted for Omeprazole (PRILOSEC). Start: 12-04-2018 End: 12-04-2018 pantoprazole (PROTONIX) EC t ablet 40 mg Start: 11-01-2018 End: 11-05-2018 take 40 mg by mouth once daily 40 mg, Oral, Daily, First dose on Sun11/01/18 at 1915 DO NOT CRUSH OR CHEW. take 1 tablet by uriel th once daily before mealtime pantoprazole (ProtoNix) 20 mg EC tablet Take 1 tablet (20 mg) by mouth once daily in the morning. Take before meals. Do not crush, chew, or split. Active piperacillin 3000 mg / tazobactam 375 mg injection (8 sources) Penicillin-class Antibacterial, beta Lactamase Inhibitor Start: 12-04-2022 End: 12-04-2022 take 3.375 g intravenously every eight hours piperacillin-tazobactam (Zosyn) IVPB 3.375 g Start: 12-03-2022 End: 12-03-2022 piperacillin-tazobactam (Zos yn) IVPB 3,375 mg Start: 11-20-2022 End: 11-21-2022 take 3375 mg intravenously every eight hours 3,375 mg, IntraVENous, at 12.5 mL/hr, Administer over 4 Hours, Every 8 hours, First dose on Sun11/20/22 at 1500 premix bag Suspected Indication (Select all that apply): Skin and Soft Tissue Infection Start: 05-04-2019 End: 05-08-2019 3.375 g, Intravenous, EVERY 8 HOURS, First dose on Sun05/04/19 at 0200, Until Discontinued Start: 05-03-2019 End: 05-03-2019 piperacillin-tazobactam (ZOS YN) 4.5 g in dextrose 100 mL IVPB (premix) 1000 ml potassium chloride 0.02 meq/ml / sodium chloride 9 mg/ml injection (1 source) Start: 05-03-2019 End: 05-04-2019 0.9% NaCl with KCl 20 mEq infusion predniSONE 20 mg oral tablet (20 sources) Start: 07-23-2023 End: 05-06-2024 take 2 tablets by mouth once daily Prednisone 20 mg tablet Discontinued 40 mg PO DAILY 10 July 23, 2023 12:00am May 06, 2024 9:13am Start: 07-23-2023 take 40 mg by mouth once daily Prednisone Active 40 MG PO DAILY 07 05July 23, 2023 12:00am Start: 09-10-2022 take 4 tablets by mo uth once daily, then take 3 tablets by mouth once daily, then take 2 tablets by mouth once daily, then take 1 tablet by mouth once daily, then take 0.5 tablet by mouth once daily Prednisone Active 10 MG PO DAILY September 10, 2022 12:00am Take 4 tabs daily for 5 days then 3 tabs daily for 5 days then 2 tabs daily for 5 days then 1 tab daily for 5 days then half tab daily for 4 days. Start: 10-03-2021 Prednisone Act filemon 20 MG PO DAILY October 03, 2021 9:53am 40 mg daily for 3 days, 30 mg for 3 days, 20 mg for 5 days and 10 mg 9 days Start: 12-01-2020 End: 05-11-2021 take 2 tablets by mouth once daily at mealtime Prednisone 20 MG tablet Discontinued 40 mg PO DAILY December 01, 2020 1:00am May 11, 2021 11:18am With food Start: 12-01-2020 End: 05-11-2021 take 40 mg by mouth once daily at mealtime Prednisone Discontinued 40 MG PO DAILY December 01, 2020 1:00am May 11, 2021 11:18am With food Start: 12-02-2019 End: 01-28-2020 take 3 tablets by mouth once daily at mealtime Prednisone 20 mg tablet Discontinued 60 mg PO daily 15 December 02, 2019 1:00am January 28, 2020 8:53am administer with food or milk Start: 12-02-2019 End: 01-28-2020 take 60 mg by mouth once daily at mealtime Prednisone Discontinued 60 MG PO daily December 02, 2019 1:00am January 28, 2020 8:53am administer with food or milk Start: 10-04-2019 End: 10-13-2019 take 2 tablets by mouth once daily Prednisone 20 MG tablet Discontinued 40 mg PO DAILY 10 October 04, 2019 1:00am October 13, 2019 8:54am Start: 10-04-2019 End: 10-13-2019 take 40 mg by mouth once daily Prednisone Discontinued 40 MG PO DAILY October 04, 2019 1:00am October 13, 2019 8:54am Start: 09-22-2019 End: 10-04-2019 Prednisone 10 MG tablet Discontinued 10 mg PO DIRECTED September 22, 2019 1:00am October 04, 2019 9:40am TAKE 4 TABLETS BY MOUTH DAILY WITH FOOD FOR 3 DAYS, THEN TAKE 3 TABLETS BY MOUTH DAILY WITH FOOD FOR 3 DAYS, THEN TAKE 2 TABLETS BY MOUTH DAILY WITH FOOD FOR 3 DAYS, THEN TAKE 1 TABLETS BY MOUTH DAILY WITH FOOD FOR 3 DAYS, THEN STOP Start: 01-07-2016 End: 01-14-2016 take 2 tablets by mouth once daily Prednisone 20 MG tablet Discontinued 40 mg PO DAILY 8 January 07, 2016 12:00am January 14, 2016 8:30am Start: 01-07-2016 End: 01-14-2016 take 40 mg by mouth once daily Prednisone Discontinued 40 MG PO DAILY January 07, 2016 12:00am January 14, 2016 8:30am pregabalin 50 mg oral capsule (18 sources) Start: 04-10-2022 End: 11-02-2022 take 1 capsule by mouth twice daily pregabalin (Lyrica) 50 MG capsule TAKE 1 CAPSULE BY MOUTH TWICE DAILY FOR 28 DAYS 0 04/10/2022 11/02/2022 Discontinued (Stop taking at discharge) ramipril 5 mg oral capsule (19 sources) Angiotensin Converting Enzyme Inhibitor Start: 09-21-2019 End: 01-28-2020 take 1 capsule by mouth once daily Ramipril 5 MG capsule Discontinued 5 mg PO DAILY September 21, 2019 1:00am January 28, 2020 8:53am B/P Start: 05-04-2019 take 5 mg by mouth once daily 5 mg, Oral, DAILY, First dose on 05/04/19 at 1315 take 2 capsules by m outh once daily ramipril (ALTACE) 5 MG capsule Take 10 mg by mouth daily 0 Active take 1 capsule by mouth once jorge ly ramipril (ALTACE) 5 MG capsule Take 5 mg by mouth daily . 0 Active 20 ml ropivacaine hydrochloride 5 mg/ml injection (1 source) Amide Local Anesthetic Start: 08-04-2021 End: 08-04-2021 ropivacaine (NAROPIN) 0.5% injection 10 mL Start: 08-04-2021 End: 08-04-2021 ropivacaine (NAROPIN) 0.5% i njection 10 mL 5 ml sodium chloride 9 mg/ml injection (20 sources) Start: 06-05-2023 End: 06-08-2023 take 10 mL intraluminal route every twelve hours sodium chloride 0.9% (NS) flush 10 mL Start: 05-22-2023 End: 05-22-2023 sodium chloride 0.9% (NS) fl ush 10 mL Start: 05-22-2023 End: 05-22-2023 sodium chloride 0.9 % bolus 500 mL Start: 05-22-2023 End: 05-22-2023 sodium chloride 0.9 % infusi on Start: 05-22-2023 End: 05-22-2023 sodium chloride 0.9% (NS) fl ush 10 mL Start: 05-08-2023 End: 05-08-2023 sodium chloride 0.9% (NS) fl ush 10 mL Start: 05-08-2023 End: 05-08-2023 sodium chloride 0.9 % bolus 500 mL Start: 05-08-2023 End: 05-08-2023 sodium chloride 0.9 % infusi on Start: 05-08-2023 End: 05-08-2023 sodium chloride 0.9% (NS) fl ush 10 mL Start: 02-22-2023 End: 02-28-2023 sodium chloride 0.9 % bolus 500 mL Start: 02-22-2023 End: 02-28-2023 sodium chloride 0.9 % infusi on Start: 02-22-2023 End: 02-28-2023 sodium chloride 0.9% (NS) fl ush 10 mL Start: 12-07-2022 End: 12-12-2022 take 10 mL intraluminal route every twelve hours sodium chloride 0.9% (NS) flush 10 mL Start: 11-22-2022 End: 11-27-2022 take 10 mL intraluminal route every twelve hours 10 mL, IntraCATHeter, Every 12 hours, First dose on Sun11/22/22 at 1715 Administer to each lumen, regardless of whether or not fluids are infusing. Line Care. Use 10 mL or larger syringe. Start: 11-22-2022 End: 11-27-2022 10 mL, IntraCATHeter, PRN, l ine care, before blood draws, before and after infusion or medication administration, Starting on Sun11/22/22 at 1710 Use 10 mL or larger syringe. Start: 11-10-2022 End: 11-27-2022 take 5-40 mL intravenously every twelve hours 5-40 mL, IntraVENous, Every 12 hours, First dose on Sun11/10/22 at 1900 For Line Patency: Peripheral IV = 5 [...] Midline or Central Line = 20 mL/lumen Start: 11-10-2022 End: 11-27-2022 5-250 mL/hr, IntraVENous, MO N, if patient receiving piggyback infusions and maintenance fluids are not ordered OR KVO fluids to protect IV site / prevent frequent line interruptions / long duration, Starting on Sun11/10/22 at 1856 For piggyback infusion, administer at same rate [...] or less into rate field of order. Start: 11-10-2022 End: 11-27-2022 take 5-40 mL intravenously once as needed 5-40 mL, IntraVENous, PRN, line care, After every IV line use, Starting on Sun11/10/22 at 1856 For Line Patency: Peripheral IV = 5 [...] Midline or Central Line = 20 mL/lumen Start: 10-30-2022 End: 11-02-2022 sodium chloride 0.9 % infusi on Start: 01-11-2022 sodium chlorid e flush 0.9 % injection 5-40 mL Start: 01-11-2022 0.9 % sodium c hloride bolus Start: 01-11-2022 0.9 % sodium c hloride infusion Start: 01-11-2022 sodium chlorid e flush 0.9 % injection 5-40 mL Start: 12-19-2021 0.9 % sodium c hloride infusion Start: 12-19-2021 sodium chlorid e flush 0.9 % injection 5-40 mL Start: 08-04-2021 End: 08-04-2021 0.9 % sodium chloride bolus Start: 08-04-2021 0.9 % sodium c hloride infusion Start: 08-04-2021 sodium chlorid e flush 0.9 % injection 5-40 mL Start: 08-17-2020 sodium chlorid e flush 0.9 % injection 10 mL Start: 08-06-2020 sodium chlorid e flush 0.9 % injection 10 mL Start: 07-27-2020 sodium chlorid e flush 0.9 % injection 10 mL Start: 07-08-2020 0.9 % sodium c hloride infusion Start: 07-08-2020 sodium chlorid e flush 0.9 % injection 10 mL Start: 05-03-2019 10 mL, Intrave nous, EVERY 12 HOURS SCHEDULED (2 times per day), First dose on 05/03/19 at 2200 Start: 05-03-2019 take 10 mL intraveno us route once as needed 10 mL, Intravenous, PRN, Line Care, After every IV line use, Starting 05/03/19 at 2141 Start: 12-04-2018 End: 12-04-2018 sodium chloride (PF) (NS) fl ush 10 mL Start: 11-05-2018 End: 11-05-2018 sodium chloride (PF) (NS) fl ush 10 mL Start: 11-04-2018 End: 11-05-2018 sodium chloride (PF) (NS) fl ush 5 mL spironolactone 25 mg oral tablet (20 sources) Aldosterone Antagonist Start: 12-04-2018 End: 12-04-2018 take 25 mg by mouth once daily in the morning 25 mg, Oral, Every morning, First dose on Sun12/04/18 at 0900 Start: 11-02-2018 End: 11-02-2022 spironolactone (ALDACTONE) t ablet 25 mg sulfamethoxazole 800 mg / trimethoprim 160 mg oral tablet (15 sources) Dihydrofolate Reductase Inhibitor Antibacterial, Sulfonamide Antimicrobial Start: 05-25-2023 End: 06-08-2023 take 1 tablet by mouth once in the morning sulfamethoxazole-trimethoprim (Bactrim DS) 800-160 MG tablet Indications: 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 Do all this for 14 days. 28 tablet 0 05/25/2023 06/08/2023 Start: 02-22-2023 End: 03-01-2023 take 1 tablet by mouth twice daily sulfamethoxazole-trimethoprim (Bactrim D S) 800-160 MG tablet Indications: Perioperative Infection Pharmacoprophylaxis Take 1 tablet by mouth 2 times daily for 7 days. 14 tablet 0 02/22/2023 03/01/2023 Active Start: 07-08-2020 End: 07-15-2020 take 1 tablet by mouth once daily sulfamethoxazole-trimethoprim (BACTRIM DS;SEPTRA DS) 800-160 MG per tablet Take 1 tablet by mouth daily for 7 days 7 tablet 0 07/08/2020 07/15/2020 Active Symbicort 160 mcg-4.5 mcg/inh Inhaler (1 source) Start: 01-28-2021 End: 04-28-2021 take 1 dose by inhalation twice daily Symbicort 160 mcg-4.5 mcg/inh Inhaler Dose = 2 puff(s), Inhalation, BID, INHALE 2 PUFFS TWICE DAILY, # 3 EA, 2 Refill(s), Pharmacy: [facility], Asthma, 170.2, cm, 01/28/21 10:18:00 EDT, Height, kg, 01/28/21 10:18:00 EDT, Dosing Weight Start Date: 01/28/21 Stop Date: 04/28/21 Status: Ordered tiZANidine 2 mg oral tablet (16 sources) Central alpha-2 Adrenergic Agonist Start: 03-12-2023 End: 04-02-2023 take 1 tablet by mouth once daily tiZANidine (Zanaflex) 2 MG tablet Indications: Chronic pain of both shoulders , Cervical radiculitis Take 1 tablet (2 mg) by mouth Nightly for 21 days. 21 tablet 0 03/12/2023 Suspended 1 ml triamcinolone acetonide 40 mg/ml injection (7 sources) Corticosteroid Start: 05-14-2025 End: 05-14-2025 Once PRN Procedure, Starting on Xochilt 05/14/25 at 1008, For 1 dose, Intraprocedure Start: 12-26-2023 End: 01-02-2024 triamcinolone acetonide (Fidencio alog-40) injection 40 mg Vancomycin (2 sources) Glycopeptide Antibacterial Start: 06-01-2023 End: 06-06-2023 take 1500 mg intravenously every twelve hours vancomycin (Vancocin) 1500 mg in NS 250 mL IVPB (compounded premix) vancomycin (VANCOCIN) 1,500 mg in dextrose 5 % 250 mL IVPB (4 sources) Start: 06-04-2020 End: 07-28-2021 vancomycin (VANCOCIN) 1,500 mg in dextrose 5 % 250 mL IVPB Start: 06-04-2020 vancomycin (VA NCOCIN) 1,500 mg in dextrose 5 % 250 mL IVPB vancomycin (Vancocin) 1,500 mg in dextrose 5 % 250 mL IVPB (4 sources) Start: 12-04-2022 End: 12-11-2022 take 1500 mg intravenously every twelve hours vancomycin (Vancocin) 1,500 mg in dextrose 5 % 250 mL IVPB Start: 12-03-2022 End: 12-04-2022 take 1500 mg intravenously every twelve hours vancomycin (Vancocin) 1,500 mg in dextrose 5 % 250 mL IVPB vancomycin (VANCOCIN) 2,000 mg in dextrose 5 % 500 mL IVPB (2 sources) Start: 05-04-2019 End: 05-05-2019 2,000 mg (rounded from 2,178 mg = 15 mg/kg 145.2 kg), Intravenous, at 250 mL/hr, Administer over 120 Minutes, EVERY 12 HOURS, First dose on Sun05/04/19 at 0800 Start: 05-03-2019 End: 05-04-2019 vancomycin (VANCOCIN) 2,000 mg in dextrose 5 % 500 mL IVPB (16 sources) Start: 11-22-2022 End: 11-27-2022 take 2000 mg intravenously every eight hours 2,000 mg, IntraVENous, at 33.3 mL/hr, Administer over 180 Minutes, Every 8 hours, First dose (after last modification) on Sun11/22/22 at 1530 Restricted antimicrobial. This medication will be automatically discontinued in 24 hours. An Infectious Disease consult is required if the patient is to continue receiving this agent. Suspected Indication (Select all that apply): Skin and Soft Tissue Infection Start: 11-21-2022 End: 11-22-2022 take 2000 mg intravenously every eight hours 2,000 mg, IntraVENous, at 200 mL/hr, Administer over 30 Minutes, Every 8 hours, First dose on Sun11/21/22 at 2330, For 24 hours Restricted antimicrobial. This medication will be automatically discontinued in 24 hours. An Infectious Disease consult is required if the patient is to continue receiving this agent. Suspected Indication (Select all that apply): Skin and Soft Tissue Infection Start: 11-21-2022 End: 11-21-2022 300 mg, IntraVENous, at 166. 7 mL/hr, Administer over 90 Minutes, Once, On Sun11/21/22 at 1030, For 1 dose Observe for signs and symptoms of hypersensitivity and/or anaphylactic-type reactions per institutional standard during and following administration. Start: 11-17-2022 End: 11-27-2022 take 10 mg by mouth every four hours as needed for pain [Order 1 Start] Name: oxyCODONE (Roxicodone) immediate release tablet 10 mg Signed Summary: 10 mg, Oral, Every 4 hours PRN, moderate pain (4-6), Starting on Sun11/17/22 at 1057 [Order 1 End] [Order 2 Start] Name: oxyCODONE (Roxicodone) immediate release tablet 15 mg Signed Summary: 15 mg, Oral, Every 4 hours PRN, severe pain (7-10), Starting on Sun11/17/22 at 1057 [Order 2 End] Start: 11-17-2022 End: 11-27-2022 IntraVENous, PRN, opioid rev ersal, Starting on Sun11/17/22 at 1057 PRN if respiratory rate is less than [...] repeat dose (0.4 mg as administered previously). Start: 11-17-2022 End: 11-27-2022 take 0.25 mg intravenously every four hours as needed for pain [Order 1 Start] Name: HYDROmorphone (Dilaudid) injection 0.25 mg Signed Summary: 0.25 mg, IntraVENous, Every 4 hours PRN, moderate pain (4-6), Starting on Sun11/17/22 at 1057 If oral and IV narcotics ordered, use oral first and only use IV if oral is ineffective or cannot take oral. Do Not give oral and IV within 1 hour of each other unless specifically ordered. [Order 1 End] [Order 2 Start] Name: HYDROmorphone (Dilaudid) injection 0.5 mg Signed Summary: 0.5 mg, IntraVENous, Every 4 hours PRN, severe pain (7-10), Starting on Sun11/17/22 at 1057 If oral and IV narcotics ordered, use oral first and only use IV if oral is ineffective or cannot take oral. Do Not give oral and IV within 1 hour of each other unless specifically ordered. [Order 2 End] Start: 11-13-2022 End: 11-20-2022 2,000 mg, IntraVENous, at 10 0 mL/hr, Administer over 30 Minutes, Every 24 hours, First dose on 11/13/22 at 1630 Mini-Bag Plus bag Suspected Indication (Select all that apply): Skin and Soft Tissue Infection Start: 11-10-2022 End: 11-27-2022 take 4 mg by mouth every eight hours as needed for nausea and vomiting [Order 1 Start] Name: ondansetron ODT (Zofran-ODT) disintegrating tablet 4 mg Signed Summary: 4 mg, Oral, Every 8 hours PRN, nausea, vomiting, Starting on Sun11/10/22 at 1856 1[address] Line. If inadequate response within 60 minutes, proceed to next-line agent or contact provider if no further options ordered. Patient should allow tablet to dissolve on tongue. Do not remove from blister pack until just before administering. [Order 1 End] [Order 2 Start] Name: ondansetron (Zofran) injection 4 mg Signed Summary: 4 mg, IntraVENous, Every 6 hours PRN, nausea, vomiting, Starting on Sun11/10/22 at 1856 1[address] Line. Give IV if patient is unable to take orally. If inadequate response within 60 minutes, proceed to next-line agent or contact provider if no further options ordered. [Order 2 End] Problems Active Problems Problem Classification Problem Date Documented Da te Episodic/Chronic Administrative/social admission (2 sources) Impaired mobility 03-06-2022 Episodic Anxiety disorders (20 sources) Anxiety; Translations: [Anxiety disorder, unspecified] Onset: 1 01-19-2015 Chronic Asthma (20 sources) Acute exacerbation of asthma; Translations: [Asthma] Onset: 3 10-21-2015 Chronic Attention-deficit, conduct, and disruptive behavior disorders (20 sources) Adult attention deficit hyperactivity disorder ; Translations: [Attention-deficit hyperactivity disorder, unspecified type] Onset: 1 06-19-2019 Chronic Chronic obstructive pulmonary disease and bronchiectasis (20 sources) Chronic obstructive lung disease; Translations: [Chronic obstructive pulmonary disease, unspecified] Onset: 1 09-24-2021 Chronic Complication of device; implant or graft (2 sources) Other specified complication of vascular prosthetic devices, implants and grafts, initial encounter; Translations: [Other specified complication of vascular prosthetic devices, implants and grafts, initial encounter] Onset: 9 Chronic Complication of device; implant or graft (2 sources) Pain due to other internal prosthetic devices, implants and grafts, initial encounter; Translations: [Pain due to other internal prosthetic devices, implants and grafts, initial encounter] Onset: 9 Complications of surgical procedures or medical care (20 sources) Pseudarthrosis after fusion or arthrodesis; Translations: [Neuroma of amputation stump] Onset: 0 Resolved: 3 07-27-2020 Episodic Complications of surgical procedures or medical care (6 sources) Pseudarthrosis after fusion or arthrodesis; Translations: [Pseudarthrosis after fusion or arthrodesis] Onset: 8 Congestive heart failure; nonhypertensive (3 sources) Diastolic dysfunction; Translations: [Heart failure with normal ejection fraction] 03-23-2022 Chronic Comment on above: Echocardiogram: 05/2022 FINDINGS: 1. Normal LV size. 2. Left ventricular systolic function is normal. 3. The estimated ejection fraction is 60%. 4. Stage I diastolic dysfunction. EKG Interpretation: 08/29/2022 -Perceived rhythm: Sinus tachycardia -Ventricular rate: 104 bpm -Specific ST T changes noted: Yes -Acute ischemia noted: No -Other anomalies: septal infarct that is age undetermined. ST & T wave abnormalities noted, consider inferior ischemia -I have reviewed the EKG and will send a copy of the tracing to Cardiology for review. Deficiency and other anemia (7 sources) Anemia; Translations: [Anemia, unspecified] 11-06-2022 Episodic Delirium, dementia, and amnestic and other cognitive disorders (13 sources) Delirium; Translations: [Delirium due to known physiological condition] 01-29-2022 Chronic Disorders of lipid metabolism (20 sources) Hyperlipidemia; Translations: [Hyperlipidemia, unspecified] Onset: 3 12-04-2022 Chronic Esophageal disorders (20 sources) Gastroesophageal reflux disease; Translations: [Gastro-esophageal reflux disease without esophagitis] Onset: 1 01-06-2020 Chronic Essential hypertension (20 sources) Hypertensive disorder; Translations: [Essential (primary) hypertension] Onset: 3 10-21-2015 Chronic Headache; including migraine (20 sources) Migraine; Translations: [Migraine, unspecified, not intractable, without status migrainosus] Onset: 1 07-01-2020 Chronic Infective arthritis and osteomyelitis (except that caused by tuberculosis or sexually transmitted disease) (20 sources) Osteomyelitis; Translations: [Osteomyelitis of right foot] Onset: 9 05-03-2019 Chronic Infective arthritis and osteomyelitis (except that caused by tuberculosis or sexually transmitted disease) (7 sources) Osteomyelitis of right foot; Translations: [Osteomyelitis of right foot] Onset: 9 02-11-2019 Malaise and fatigue (12 sources) Asthenia; Translations: [Weakness] 03-17-2022 Episodic Mood disorders (20 sources) Major depression, single episode; Translations: [Depressive disorder] Onset: 3 10-21-2015 Chronic Nonspecific chest pain (20 sources) Chest wall pain; Translations: [Other chest pain] Onset: 1 09-24-2021 Episodic Nutritional deficiencies (20 sources) Vitamin D deficiency; Translations: [Vitamin D deficiency, unspecified] Onset: 1 10-09-2019 Chronic Open wounds of extremities (20 sources) Traumatic amputation of lower extremity; Translations: [Complete traumatic amputation of unspecified lower leg, level unspecified, initial encounter] Onset: 1 09-24-2021 Chronic Open wounds of extremities (20 sources) Open wound of right foot; Translations: [Unspecified open wound, right foot, initial encounter] Onset: 9 03-14-2019 Episodic Osteoarthritis (20 sources) Primary osteoarthritis, right ankle and foot; Translations: [Arthritis of right subtalar joint] Onset: 8 10-07-2018 Chronic Osteoporosis (1 source) Age-related osteoporosis without current pathological fracture; Translations: [Age-related osteoporosis without current pathological fracture] Onset: 5 Chronic Other aftercare (3 sources) Post-discharge follow-up 03-23-2022 Episodic Other aftercare (9 sources) Long-term current use of anticoagulant; Translations: [[facility] (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 anticoagulants] 10-16-2022 Episodic Other aftercare (2 sources) long term care pharmacist (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 anticoagulants; Translations: [Long-term (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 anticoagulants] Episodic Other and unspecified benign neoplasm (8 sources) Lipoma of thigh; Translations: [Benign lipomatous neoplasm of skin and subcutaneous tissue of unspecified limb] 12-20-2024 Episodic Comment on above: On the left Other bone disease and musculoskeletal deformities (20 sources) History of amputation of right leg through tibia and fibula; Translations: [Acquired absence of right leg below knee] Onset: 0 08-17-2020 Chronic Other bone disease and musculoskeletal deformities (7 sources) Amputated left lower limb; Translations: [Acquired absence of left leg above knee] 11-06-2022 Chronic Other bone disease and musculoskeletal deformities (1 source) Amputee 01-16-2023 Chronic Other bone disease and musculoskeletal deformities (4 sources) Avascular necrosis of bone; 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] 05-10-2024 Chronic Other connective tissue disease (1 source) Pain in right arm; Translations: [Pain of right upper extremity] Episodic Other connective tissue disease (2 sources) H/O: arthrodesis; Translations: [Arthrodesis status] Onset: 9 Episodic Other connective tissue disease (2 sources) Pain in right arm; Translations: [Pain in right arm] Onset: 9 Episodic Other connective tissue disease (1 source) Arthrodesis status; Translations: [Arthrodesis status] Onset: 9 Episodic Other connective tissue disease (20 sources) Swelling of left lower limb; Translations: [Other specified soft tissue disorders] Onset: 1 09-24-2021 Episodic Other connective tissue disease (11 sources) Fibromyalgia; Translations: [Fibromyalgia] Onset: 5 04-14-2025 Episodic Other connective tissue disease (2 sources) Necrotizing fasciitis 02-10-2022 Episodic Other connective tissue disease (1 source) Bursitis of shoulder; Translations: [Bursitis of left shoulder] Episodic Other connective tissue disease (2 sources) Fibromyalgia; Translations: [Fibromyalgia] Onset: 5 Episodic Other connective tissue disease (8 sources) Neuropathic pain; Translations: [Neuralgia and neuritis, unspecified] 04-29-2025 Episodic Other connective tissue disease (2 sources) Neuralgia and neuritis, unspecified; Translations: [Neuralgia and neuritis, unspecified] Onset: 5 Episodic Other connective tissue disease (7 sources) Pain in right foot; Translations: [Right foot pain] Onset: 9 04-08-2019 Other diseases of veins and lymphatics (20 sources) Lymphedema; Translations: [Lymphedema, not elsewhere classified] Onset: 2 09-08-2022 Chronic Other gastrointestinal disorders (4 sources) Dysphagia; Translations: [Dysphagia, unspecified] 05-06-2024 Episodic Other hereditary and degenerative nervous system conditions (20 sources) Restless legs; Translations: [Restless legs syndrome] Onset: 1 01-19-2015 Chronic Other lower respiratory disease (20 sources) Dyspnea; Translations: [Shortness of breath] Onset: 1 09-24-2021 Episodic Other lower respiratory disease (1 source) Cough 06-26-2022 Episodic Other lower respiratory disease (2 sources) Expiratory wheezing 06-26-2022 Episodic Other lower respiratory disease (3 sources) Dyspnea on exertion; Translations: [Other forms of dyspnea] Episodic Other lower respiratory disease (3 sources) Tachypnea; Translations: [Tachypnea, not elsewhere classified] Episodic Other lower respiratory disease (12 sources) Hypoxia; Translations: [Hypoxemia] 09-13-2022 Episodic Other lower respiratory disease (3 sources) Other forms of dyspnea; Translations: [Other respiratory abnormalities] Episodic Other lower respiratory disease (6 sources) Hypoxemia; Translations: [Hypoxemia] Episodic Other lower respiratory disease (3 sources) Tachypnea, not elsewhere classified; Translations: [Tachypnea] Episodic Other lower respiratory disease (1 source) Solitary pulmonary nodule; Translations: [Solitary pulmonary nodule] Onset: 5 Episodic Other nervous system disorders (3 sources) Complex regional pain syndrome, type I 01-19-2015 Chronic Other nervous system disorders (20 sources) Complex regional pain syndrome of lower limb; Translations: [Complex regional pain syndrome I of unspecified lower limb] 09-20-2019 Chronic Other nervous system disorders (1 source) Complex regional pain syndrome; Translations: [Complex regional pain syndrome I, unspecified] Chronic Other nervous system disorders (12 sources) Disorder of brain; Translations: [Encephalopathy, unspecified] 03-17-2022 Chronic Other nervous system disorders (12 sources) Expressive dysphasia; Translations: [Aphasia] 03-17-2022 Chronic Other nervous system disorders (1 source) Phantom limb syndrome with pain 04-24-2023 Chronic Other nervous system disorders (4 sources) Other chronic pain; Translations: [Other chronic pain] Onset: 4 Chronic Other nervous system disorders (6 sources) Suprascapular neuropathy; Translations: [Other specified mononeuropathies of unspecified upper limb] Onset: 5 04-14-2025 Chronic Other nervous system disorders (2 sources) Other specified mononeuropathies of unspecified upper limb; Translations: [Other specified mononeuropathies of unspecified upper limb] Onset: 5 Chronic Other nervous system disorders (1 source) Phantom pain; Translations: [Other nerve root and plexus disorders] 05-07-2025 Chronic Other nervous system disorders (2 sources) Other nerve root and plexus disorders; Translations: [Other nerve root and plexus disorders] Onset: 5 Chronic Other nervous system disorders (12 sources) Slurred speech; Translations: [Slurred speech] 03-17-2022 Episodic Other non-traumatic joint disorders (1 source) Acute ankle pain; Translations: [Pain in left ankle and joints of left foot] Episodic Other non-traumatic joint disorders (13 sources) Pain in left knee; Translations: [Left knee pain] 09-24-2017 Episodic Other non-traumatic joint disorders (13 sources) Ankle pain; Translations: [Pain in unspecified ankle and joints of unspecified foot] 06-25-2020 Episodic Other non-traumatic joint disorders (3 sources) Bilateral chronic pain of upper limbs; Translations: [Pain in right shoulder] Episodic Other non-traumatic joint disorders (1 source) Chronic pain of right upper limb; Translations: [Pain in right shoulder] 10-11-2023 Episodic Other non-traumatic joint disorders (6 sources) Pain in left shoulder; Translations: [Pain in joint, shoulder region] Onset: 4 10-12-2023 Episodic Other non-traumatic joint disorders (4 sources) Pain in right shoulder; Translations: [Pain in right shoulder] Onset: 4 Episodic Other non-traumatic joint disorders (1 source) Arthritis of right subtalar joint; Translations: [Arthritis of right subtalar joint] Onset: 9 10-07-2018 Other nutritional; endocrine; and metabolic disorders (20 sources) Morbid obesity; Translations: [Morbid (severe) obesity due to excess calories] Onset: 1 09-24-2021 Chronic Other nutritional; endocrine; and metabolic disorders (2 sources) Body mass index 40+ - severely obese 03-06-2022 Chronic Other nutritional; endocrine; and metabolic disorders (2 sources) Morbid (severe) obesity due to excess calories; Translations: [Morbid (severe) obesity due to excess calories (Multi)] Onset: 5 Chronic Other upper respiratory disease (20 sources) Seasonal allergy; Translations: [Other seasonal allergic rhinitis] Onset: 1 05-20-2020 Chronic Other upper respiratory disease (20 sources) Bronchospasm; Translations: [Acute bronchospasm] Onset: 1 09-24-2021 Episodic Other upper respiratory infections (20 sources) Viral upper respiratory tract infection; Translations: [Acute upper respiratory infection, unspecified] Onset: 1 09-24-2021 Episodic Pulmonary heart disease (20 sources) Pulmonary embolism; Translations: [Other pulmonary embolism without acute cor pulmonale] Onset: 3 Episodic Residual codes; unclassified (20 sources) Obstructive sleep apnea syndrome; Translations: [Obstructive sleep apnea (adult) (pediatric)] Onset: 1 09-24-2021 Chronic Residual codes; unclassified (4 sources) Obstructive sleep apnea (adult) (pediatric); Translations: [Obstructive sleep apnea (adult) (pediatric)] Onset: 9 Chronic Residual codes; unclassified (4 sources) Sleep apnea; Translations: [Sleep apnea, unspecified] 01-27-2025 Chronic Comment on above: BiPAP 14/10 Residual codes; unclassified (1 source) Pain; Translations: [Pain] Episodic Residual codes; unclassified (1 source) History of operative procedure on foot; Translations: [Other specified postprocedural states] Episodic Residual codes; unclassified (1 source) Family history of diabetes mellitus; Translations: [Family history of diabetes mellitus] Episodic Residual codes; unclassified (1 source) Edema of left lower leg 03-06-2022 Episodic Residual codes; unclassified (2 sources) Insomnia 02-10-2022 Episodic Residual codes; unclassified (2 sources) Difficult venous access; Translations: [Other specified health status] 06-05-2023 Episodic Residual codes; unclassified (2 sources) Pain, unspecified; Translations: [Pain, unspecified] Onset: 5 Episodic Residual codes; unclassified (2 sources) Pain, unspecified; Translations: [Pain, unspecified] Onset: 9 Respiratory failure; insufficiency; arrest (adult) (3 sources) Dependence on biphasic positive airway pressure ventilation 06-10-2021 Chronic Rheumatoid arthritis and related disease (20 sources) Rheumatoid arthritis; Translations: [Rheumatoid arthritis, unspecified] Onset: 1 06-10-2018 Chronic Septicemia (except in labor) (20 sources) Sepsis; Translations: [Sepsis, unspecified organism] Episodic Skin and subcutaneous tissue infections (20 sources) Cellulitis of right lower limb; Translations: [Infection of foot] Onset: 9 11-01-2018 Episodic Skin and subcutaneous tissue infections (9 sources) Cellulitis of right foot; Translations: [Cellulitis of right lower limb] Onset: 9 04-20-2019 Superficial injury; contusion (20 sources) Contusion of knee; Translations: [Contusion of unspecified knee, initial encounter] Onset: 1 09-24-2021 Episodic Unclassified (2 sources) Unknown / UNK(Unknown) Onset: 8 Unclassified (7 sources) Open wound of right foot; Translations: [Open wound of right foot] Onset: 9 03-14-2019 Unclassified (1 source) History of amputation of right lower limb; Translations: [Amputation of right lower extremity (HCC)] Unclassified (2 sources) History of amputation of right leg through tibia and fibula; Translations: [History of right below knee amputation] Onset: 0 08-17-2020 Unclassified (7 sources) Patient encounter status 07-20-2020 Unclassified (3 sources) Traumatic amputation of lower leg 10-05-2020 Unclassified (2 sources) Drug therapy finding 12-22-2021 Comment on above: CLERICAL ADMINISTRATIVE ASSISTANT signed: 12/23/19 22 Unclassified (2 sources) History of SARS-CoV-2 09-08-2021 Unclassified (1 source) 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 08-08-2022 Unclassified (1 source) Non-smoker 04-24-2023 Unclassified (2 sources) Post-op; Translations: [Post-op] Onset: 3 Unclassified (6 sources) Bilateral chronic pain of upper limbs 04-29-2025 Unclassified (1 source) Cough, unspecified; Translations: [Cough, unspecified] Onset: 5 Viral infection (1 source) COVID-19; Translations: [Acute bronchitis due to COVID-19 virus] 05-16-2025 Episodic Past or Other Problems Problem Classification Problem Date Documented Da te Episodic/Chronic Abdominal hernia (20 sources) Hiatal hernia; Translations: [Diaphragmatic hernia without obstruction or gangrene] Onset: 09-24-2021 06-19-2019 Episodic Acquired foot deformities (20 sources) Acquired deformity of toe of left foot; Translations: [Acquired deformities of toe(s), unspecified, left foot] Onset: 01-21-2021 01-21-2021 Episodic Bacterial infection; unspecified site (20 sources) Infection by methicillin sensitive Staphylococcus aureus; Translations: [Methicillin susceptible Staphylococcus aureus infection, unspecified site] Onset: 05-04-2019 05-04-2019 Episodic Complication of device; implant or graft (20 sources) Pain due to any device, implant AND/OR graft; Translations: [Blocked catheter] Onset: 08-20-2018 11-04-2018 Episodic Diabetes mellitus without complication (20 sources) Impaired fasting glycemia; Translations: [Impaired fasting glucose] Onset: 09-24-2021 10-09-2019 Episodic Gastrointestinal hemorrhage (20 sources) Hemorrhage of rectum and anus; Translations: [Hemorrhage of anus and rectum] Onset: 03-15-2009 10-21-2015 Episodic Heart valve disorders (20 sources) Pansystolic murmur; Translations: [Cardiac murmur, unspecified] Onset: 09-24-2021 07-01-2020 Episodic Comment on above: Holosystolic murmur, 10/06 Echocardiogram: 05/2022 IMPRESSION: 1. Normal LV size. 2. Left ventricular systolic function is normal. 3. The estimated ejection fraction is 60%. 4. Stage I diastolic dysfunction. Other aftercare (20 sources) Long-term current use of antibiotic; Translations: [long term care pharmacist (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 antibiotics] Onset: 10-28-2021 10-28-2021 Episodic Other aftercare (1 source) long term care pharmacist (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 antibiotics; Translations: [[facility] (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 antibiotics] Onset: 07-16-2022 Episodic Other and unspecified benign neoplasm (1 source) Benign lipomatous neoplasm of skin and subcutaneous tissue of unspecified limb; Translations: [Benign lipomatous neoplasm of skin and subcutaneous tissue of unspecified limb] Onset: 01-12-2025 Episodic Other connective tissue disease (20 sources) Hematoma; Translations: [Other injury of unspecified body region, initial encounter] Onset: 04-01-2019 04-01-2019 Episodic Other connective tissue disease (20 sources) Pain in right foot; Translations: [Pain in right foot] Onset: 04-08-2019 04-08-2019 Episodic Other connective tissue disease (20 sources) Weakness of left leg; Translations: [Other symptoms and signs involving the musculoskeletal system] Onset: 01-21-2021 01-21-2021 Episodic Other connective tissue disease (20 sources) Fibromyositis; Translations: [Fibromyalgia] Onset: 09-24-2021 05-27-2014 Episodic Other connective tissue disease (20 sources) Necrotizing soft tissue infection; Translations: [Other specified soft tissue disorders] Onset: 01-24-2022 07-16-2022 Episodic Other connective tissue disease (20 sources) Other symptoms and signs involving the musculoskeletal system; Translations: [Other musculoskeletal symptoms referable to limbs] Onset: 01-21-2021 07-16-2022 Episodic Other injuries and conditions due to external causes (20 sources) Local infection of wound; Translations: [Other injury of unspecified body region, initial encounter] Onset: 10-26-2021 10-26-2021 Episodic Other nervous system disorders (20 sources) Postoperative pain ; Translations: [Other acute postprocedural pain] Onset: 03-06-2019 03-07-2019 Episodic Other nervous system disorders (2 sources) Other acute postprocedural pain; Translations: [Other acute postprocedural pain] Onset: 07-16-2022 Episodic Other non-traumatic joint disorders (20 sources) Chronic pain following left total knee arthroplasty; Translations: [Pain in left knee] Onset: 09-24-2021 09-24-2021 Episodic Other screening for suspected conditions (not mental disorders or infectious disease) (6 sources) D-dimer above reference range; Translations: [Other specified abnormal findings of blood chemistry] Onset: 11-27-2024 05-16-2025 Episodic Other skin disorders (20 sources) Callosity; Translations: [Corns and callosities] Onset: 03-03-2021 03-03-2021 Episodic Phlebitis; thrombophlebitis and thromboembolism (20 sources) Thrombosis of vein of upper limb; Translations: [Acute embolism and thrombosis of superficial veins of left upper extremity] Onset: 11-24-2022 11-24-2022 Episodic Pneumonia (except that caused by tuberculosis or sexually transmitted disease) (10 sources) Pneumonia; Translations: [Pneumonia, unspecified organism] Onset: 01-21-2025 01-14-2025 Episodic Residual codes; unclassified (20 sources) Edema of lower extremity; Translations: [Localized edema] Onset: 09-24-2021 06-10-2021 Episodic Residual codes; unclassified (20 sources) Increased body mass index; Translations: [Other symptoms and signs concerning food and fluid intake] Onset: 09-24-2021 01-06-2020 Episodic Residual codes; unclassified (2 sources) Other specified health status; Translations: [Other specified health status] Onset: 05-29-2023 Episodic Respiratory failure; insufficiency; arrest (adult) (9 sources) Acute hypoxemic respiratory failure; Translations: [Acute respiratory failure with hypoxia] Onset: 01-21-2025 01-14-2025 Episodic Spondylosis; intervertebral disc disorders; other back problems (20 sources) Backache; Translations: [Dorsalgia, unspecified] Onset: 07-28-2013 10-21-2015 Episodic Sprains and strains (20 sources) Tendon injury - lower limb; Translations: [Strain of muscle(s) and tendon(s) of peroneal muscle group at lower leg level, unspecified leg, initial encounter] Onset: 07-18-2021 07-18-2021 Episodic Unclassified (1 source) PULMONARY HYPERTENSION, SOB Onset: 02-21-2018 Unclassified (1 source) RIGHT ANKLE GASTROCHEMIUS RECESSION ANKL Onset: 11-29-2017 Unclassified (2 sources) Onset: 05-07-2025 05-07-2025 Results Test Name Value Interpretation Reference Range Facility 12 Lead EKGon 05-16-2025 12 Lead EKG [facility] Cardiovascular Services [address] [place] [address] 12 Lead EKG 05/16/25 0542 MR#: [id number] Acct: [id number] Name: SIOBHAN HAAS Rep #: [id number] : 1960 64 From: Chris Gomez MD Attending Dr: Status: DEP ER Ordering Dr: August Hobson MD Date: 05/16/25 Location: ED Sex: F C Admitted: Test Reason : CP Blood Pressure : */* mmHG Vent. Rate : 70 BPM Atrial Rate : 70 BPM P-R Int : 178 ms QRS Dur : 88 ms QT Int : 384 ms P-R-T Axes : 25 -5 28 degrees QTcB Int : 414 ms Normal sinus rhythm Nonspecific T wave abnormality Abnormal ECG Confirmed by RASHEL BORDEN, CHRIS ([id number]), graphics editor ANJUM BERNSTEIN ([id number]) on 05/18/2025 9:19:21 AM Referred By: BB Confirmed By: CHRIS GOMEZ MD 05/18/25918 Date Chris Gomez MD CC: Dr. August Hobson MD; Dr. Louis Penn MD Signed Normal [facility] Absolute lymphocyte countOrd ered By: August Hobson on 05-16-2025 Lymphocytes Auto (Unsp spec) [#/Vol] 2.07 10*3/uL 0.83-4.51 [facility] Absolute neutrophil countOrd ered By: August Hobson on 05-16-2025 Neutrophils (Bld) [#/Vol] 6.0 10*3/uL 2.0-7.7 [facility] Anion gap in Serum or Plasma Ordered By: August Hobson on 05-16-2025 Anion gap [Moles/Vol] 12 mmol/L 5-15 [facility] Automated lymphocyte count a s percentage of total leukocytesOrdered By: August Hobson on 05-16-2025 Lymphocytes/100 WBC Auto (Unsp spec) 22.6 % - [facility] BUN/creatinine ratioOrdered By: August Hobson on 05-16-2025 Urea nitrogen/Creatinine [Mass ratio] 29.2 mg/mg High - [facility] Basic Metabolic Profile (BMP )on 05-16-2025 BUN/CRE 29.2 RATIO High - [facility] Comment on above: Performed By: #### L 501.080 #### [facility] [address] [place], [address] Calcium [Mass/Vol] 9.2 mg/dL Normal 7.6-11.0 [facility] Comment on above: Performed By: #### L 501.080 #### [facility] [address] [place], [address] Chloride [Moles/Vol] 103 mmol/L Normal 98-108 [facility] Comment on above: Performed By: #### L 501.080 #### [facility] [address] [place], [address] CO2 [Moles/Vol] 21.7 mmol/L Normal 21.0-32.0 [facility] Comment on above: Performed By: #### L 501.080 #### [facility] [address] [place], [address] Creatinine [Mass/Vol] 0.62 mg/dL Low 0.70-1.20 [facility] Comment on above: Performed By: #### L 501.080 #### [facility] [address] [place], [address] ECRCL 110.12 ml/min Normal 50-250 [facility] Comment on above: Performed By: #### L 501.080 #### [facility] [address] [place], [address] GAP 12 Normal 5-15 [facility] Comment on above: Performed By: #### L 501.080 #### [facility] [address] [place], [address] GFR/1.73 sq M.predicted among non-blacks MDRD (S/P/Bld) [Vol rate/Area] 99 mL/min/{1.73_m2} Normal >60 [facility] Comment on above: Result Comment: mL/m in/1.73m2 CKD-EPI Creatinine Equation (2020) Performed By: #### L 501.080 #### [facility] [address] [place], [address] Glucose [Mass/Vol] 114 mg/dL High 70-99 [facility] Comment on above: Performed By: #### L 501.080 #### [facility] [address] [place], [address] Potassium [Moles/Vol] 4.0 mmol/L Normal 3.3-5.1 [facility] Comment on above: Performed By: #### L 501.080 #### [facility] [address] [place], [address] Sodium [Moles/Vol] 137 mmol/L Normal 133-145 [facility] Comment on above: Performed By: #### L 501.080 #### [facility] [address] [place], [address] Urea nitrogen [Mass/Vol] 18 mg/dL Normal 4-19 [facility] Comment on above: Performed By: #### L 501.080 #### [facility] [address] [place], [address] Basophil percentageOrdered B y: August Hobson on 05-16-2025 Basophils/100 WBC (Bld) 0.7 % 0-1 [facility] CBC W/Diff, Automatedon 05-01 Absolute Lymph 2.07 X10 3/uL Normal 0.83-4.51 [facility] Comment on above: Performed By: #### L 501.080 #### [facility] [address] [place], [address] Absolute Neut 6.0 X10 3/uL Normal 2.0-7.7 [facility] Comment on above: Performed By: #### L 501.080 #### [facility] [address] [place], [address] Basophils/100 WBC (Bld) 0.7 % Normal 0-1 [facility] Comment on above: Performed By: #### L 501.080 #### [facility] [address] [place], [address] Eosinophils/100 WBC (Bld) 0.3 % Normal 0-5 [facility] Comment on above: Performed By: #### L 501.080 #### [facility] [address] [place], [address] Erythrocyte distribution width (RBC) [Ratio] 15.0 % High 11.6-14.6 [facility] Comment on above: Performed By: #### L 501.080 #### [facility] [address] [place], [address] Hematocrit (Bld) [Volume fraction] 41.2 % Normal 37-47 [facility] Comment on above: Performed By: #### L 501.080 #### [facility] [address] [place], [address] Hemoglobin (Bld) [Mass/Vol] 13.2 g/dL Normal 12.0-15.0 [facility] Comment on above: Performed By: #### L 501.080 #### [facility] [address] [place], [address] IG% 0.800 Normal 0.0-0.9 [facility] Comment on above: Result Comment: IG% - Immature Granulocytes (promyelocytes, myelocytes and metamyelocytes) > 1% indicates that a LEFT SHIFT is Present. Performed By: #### L 501.080 #### [facility] [address] [place], [address] Lymphocytes/100 WBC (Bld) 22.6 % Normal 19-41 [facility] Comment on above: Performed By: #### L 501.080 #### [facility] [address] [place], [address] MCH (RBC) [Entitic mass] 28.1 pg Normal 27.0-32.0 [facility] Comment on above: Performed By: #### L 501.080 #### [facility] [address] [place], [address] MCHC (RBC) [Mass/Vol] 32.0 g/dL Normal 32-36 [facility] Comment on above: Performed By: #### L 501.080 #### [facility] [address] [place], [address] MCV (RBC) [Entitic vol] 87.7 fL Normal 81-99 [facility] Comment on above: Performed By: #### L 501.080 #### [facility] [address] [place], [address] Monocytes/100 WBC (Bld) 10.3 % High 0-10 [facility] Comment on above: Performed By: #### L 501.080 #### [facility] [address] [place], [address] Neutrophils/100 WBC (Bld) 65.3 % Normal 47-70 [facility] Comment on above: Performed By: #### L 501.080 #### [facility] [address] [place], [address] Nucleated RBC (Bld) [#/Vol] 0 10*3/uL Normal 0-5 [facility] Comment on above: Performed By: #### L 501.080 #### [facility] [address] [place], [address] Platelet mean volume (Bld) [Entitic vol] 10.5 fL Normal 6.2-12.0 [facility] Comment on above: Performed By: #### L 501.080 #### [facility] [address] [place], [address] Platelets (Bld) [#/Vol] 246 10*3/uL Normal 150-450 [facility] Comment on above: Performed By: #### L 501.080 #### [facility] [address] [place], [address] RBC (Bld) [#/Vol] 4.70 10*6/uL Normal 4.2-5.4 [facility] Comment on above: Performed By: #### L 501.080 #### [facility] [address] [place], [address] RDW SD 48.9 fl High 35.1-43.9 [facility] Comment on above: Performed By: #### L 501.080 #### [facility] [address] [place], [address] WBC (Bld) [#/Vol] 9.2 10*3/uL Normal 4.4-11.0 [facility] Comment on above: Performed By: #### L 501.080 #### [facility] [address] [place], [address] CTA Chest W/WO Contraston CTA Chest W/WO Contrast [facility] Imaging Services [address] [place] [address] CTA Chest W/WO Contrast MR#: [id number] Acct: [id number] Name: SIOBHAN HAAS Rep #: [id number] : 1960 F 64 From: Ann Nava MD PCP: Dr. Louis Penn MD Status: [facility] Study: CTA Chest W/WO Contrast Date of Exam: 05/16/25 Exam# [id number] Ordering Dr: August Hobson MD PROCEDURE: CTA CHEST W/ CONTRAST 05/16/2025 REASON FOR EXAM: R>L CHEST PAIN, COVID, ELEVATED D-DIMER. History of PE and COPD. TECHNIQUE: CTA CHEST W/WO CONTRAST Multiplanar Sagittal and Coronal images were obtained. CONTRAST: Isovue 370 VOLUME: 100 mL One or more dose reduction techniques were used (e.g., Automated exposure control, adjustment of the mA and/or kV according to patient size, use of iterative reconstruction technique). RADIATION DOSE SUMMARY: CTDlvol: 14.20, 11.39, 14.20 mGy DLP: 931 mGycm FINDINGS: LIMITATIONS: PORTIONS OF THE PATIENT'S CHEST WALL IS OUT OF THE FIELD OF VIEW. STREAK ARTIFACT FROM DENSE SUBCUTANEOUS CONTRAST MATERIAL IN THE LEFT ANTERIOR CHEST WALL. PULMONARY ARTERIES Respiratory motion and heterogeneous opacification limits evaluation of the distal subsegmental pulmonary arteries in both lower lobes. No intraluminal filling defect suspicious for PE in the remaining pulmonary arteries. AORTA No thoracic aortic aneurysm or dissection. Minimal calcified atherosclerosis. LUNGS No focal airspace consolidation. No pulmonary mass. Minimal dependent atelectasis bilaterally. PLEURAL SPACES No pleural effusion. No pneumothorax. HEART Mild cardiomegaly. No significant pericardial effusion. MEDIASTINUM/HILUM No significant lymphadenopathy. CHEST WALL The chest wall is unremarkable. BONES No focal osseous abnormality or acute fracture. Degenerative changes of the spine and both glenohumeral joints. Epidural electrode positioned in the neural canal with the tip at the T8 level. UPPER ABDOMEN Images through the upper abdomen are unremarkable. CT/CTA Chest W/WO Contrast IMPRESSION: No evidence of pulmonary embolism, with limited evaluation of the bilateral lower lobe distal subsegmental pulmonary arteries. Reading Location: [facility] CC: Dr. August Hobson MD; Dr. Louis Penn MD Vp Design: Signed Normal [facility] Carbon dioxide, total [Moles /volume] in Central venous bloodOrdered By: August Hobson on 05-16-2025 CO2 [Moles/Vol] 21.7 mmol/L 21.0-32.0 [facility] Chest 1 View (Portable)on Chest 1 View (Portable) [facility] Imaging Services [address] [place], [place] [address] Chest 1 View (Portable) MR#: [id number] Acct: [id number] Name: SIOBHAN HAAS Rep #: [id number] : 1960 F 64 From: Giles Blackburn MD PCP: Dr. Lousi Penn MD Status: REG ER Study: Chest 1 View (Portable) Date of Exam: 05/16/25 Exam# [id number] Ordering Dr: August Hobson MD PROCEDURE: CHEST 1 VIEW (PORTABLE) 05/16/2025 REASON FOR EXAM: COUGH SOB COVID POS TECHNIQUE: Frontal view of the chest. COMPARISON: Chest x-ray 01/14/2025. FINDINGS: Hardware: Monitor electrodes overlie the chest. Heart: No cardiomegaly. Lungs: Clear. No pleural effusion or pneumothorax. Bones: No acute bony abnormalities. Other: Spinal stimulators in place. RAD/Chest 1 View (Portable) IMPRESSION: No acute cardiopulmonary abnormalities. Reading Location: [facility] CC: Dr. August Hobson MD; Dr. Louis Penn MD Vp Design: Signed Normal [facility] Chloride assayOrdered By: Washington Hobson on 05-16-2025 Chloride [Moles/Vol] 103 mmol/L 98-108 [facility] D-Dimer Quantitative (DVT/PE )on 05-16-2025 D-DIMER QUANT 0.89 FEU/ug/m Invalid Interpretation Code 0.27-0.49 [facility] Comment on above: Result Comment: D-Di obed ELEVATED (>0.49): Additional studies and clinical assessments are indicated to conclude diagnosis of: Deep Vein Thrombosis (DVT) or Pulmonary Embolism (PE) [facility] 0658 Bhavesh Randle. RESULTS READ BACK BY SAME. Performed By: #### L 501.080 #### [facility] [address] [place], [address] Emergency Department Summary on 05-16-2025 Emergency Department Summary [facility] Medical Records Department [address] [place] [address] Emergency Department Summary 05/16/25 MR#: [id number] Acct: [id number] Name: SIOBHAN HAAS Rep #: [id number] : 1960 64 From: August Hobson MD PCP: Dr. Louis Penn MD Status:REG ER Location: ED HPI History of Present Illness Chief Complaint: Cough Informant: patient and EMS Narrative Narrative: 64-year-old female sent from halfway at 5:45 AM because she woke up with coughing, chest pressure, shortness of breath feels like her asthma. She states they did an albuterol treatment for her and it did not really seem to help her chest pressure. She states she tested positive for COVID yesterday, she was having sore throat and some congestion. She states that hurts worse to cough. Hurts worse on the right than the left of her chest. 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 Pulmonary embolism Current use of [facility] anticoagulation Chronic wound of extremity Anemia Necrotizing fasciitis Below knee amputation Depression Rheumatoid arthritis GERD (gastroesophageal reflux disease) Former smoker BiPAP (biphasic positive airway pressure) dependence Sleep apnea Hypertension Failure of outpatient treatment Anxiety and depression Bronchospasm Asthma exacerbation Family history of diabetes mellitus (DM) Restless leg syndrome Obstructive sleep apnea Morbid obesity Fibromyalgia Reflex sympathetic dystrophy Benign essential HTN Asthma Anxiety Home Medications ???Medication ???Instructions ???Recorded ???Last Taken ???Type albuterol sulfate 90 mcg/actuation 2 puff inhalation Q6H PRN 08/24/22 Rx aerosol inhaler shortness of breath or wheezing #8.5 grams valsartan 320 mg tablet 320 mg PO DAILY heart 05/19/2110/22 History pramipexole 1.5 mg tablet 3 mg PO QHS RESTLESS LEG SYNDROME 06/15/21 08/30/22 History amitriptyline 100 mg tablet 100 mg PO QHS PHANTOM 08/31/22 History PAIN/DEPRESSION cholecalciferol (vitamin D3) 1,250 1,250 mcg PO MO SUPPLEMENT 08/3108/28/22 History mcg (50,000 unit) capsule metoprolol succinate 50 mg 50 mg PO DAILY blood pressure 10/01 03/23 Unknown History tablet,extended release 24 hr montelukast 10 mg tablet 10 mg PO DAILY asthma 10/16/22 Unk nown History albuterol sulfate 2.5 mg/3 mL 1.25 mg inhalation Q4H PRN 3 Unknown History (0.083 %) solution for nebulization sob/wheezing atorvastatin 10 mg tablet 10 mg PO QHS cholesterol 07/21/23 Unknown History docusate sodium 100 mg capsule 100 mg PO DAILY constipation 07/21 Unknown History (Colace) fluticasone 250 mcg-salmeterol 50 1 inh inhalation BID copd 3 Unknown History mcg/dose blistr powdr for inhalation (Advair Diskus) gabapentin 300 mg capsule 300 mg PO DAILY phantom pain 07/21 Unknown History loratadine 10 mg tablet (Allergy 10 mg PO DAILY allergies 07/21/23 Unknown History Relief (loratadine)) melatonin 5 mg tablet 5 mg PO QHS sleep 07/21/23 Unknown History multivitamin (Daily Multi-Vitamin 1 tab PO DAILY supplement 3 Unknown History tablet) metformin 850 mg tablet 850 mg PO BID DIABETES 05/06/24 Un known History sertraline 50 mg tablet 50 mg PO DAILY DEPRESSION 05/06/24 Unknown History acetaminophen 500 mg tablet 1,000 mg PO Q8H PRN pain 05/08/24 Unknown History (Acetaminophen Extra Strength) hydroxyzine pamoate 25 mg capsule 25 mg PO Q6H PRN anxiety 05/08/24 Unknown History (Vistaril) bisacodyl 10 mg rectal suppository 10 mg MO QHS PRN constipation Unknown History buprenorphine HCl 300 mcg buccal 300 mcg buccal BID 01/14/25 Unknow n History film (Belbuca) diphenhydramine HCl 25 mg tablet 25 mg PO Q4H PRN allergic reaction 01/14/25 Unknown History (Benadryl Allergy) gabapentin 300 mg capsule 600 mg PO QHS FOR PHANTOM PAIN Unknown History guaifenesin 100 mg/5 mL oral 100 mg PO Q6H PRN cough 01/14/25 U nknown History liquid (Adult Tussin Chest Congestion) guaifenesin 600 mg tablet, 600 mg PO BID PRN congestion 01/14 Unknown History extended release 12 hr (Mucinex) ibuprofen 200 mg tablet (Advil) 400 mg PO Q12H PRN pain 01/14/25 U nknown History lidocaine 5 % topical patch 1 patch topical QHS PAIN 01/14/25 Unknown History (DermacinRx Lidocan) magnesium hydroxide 400 mg/5 mL 2,400 mg PO DAILY PRN consti (more content not included)... Normal [facility] Eosinophil percentageOrdered By: August Hobson on 05-16-2025 Eosinophils/100 WBC (Bld) 0.3 % 0-5 [facility] Erythrocyte distribution wid th ratioOrdered By: August Hobson on 05-16-2025 Erythrocyte distribution width (RBC) [Ratio] 15.0 % High 11.6-14.6 [facility] Erythrocyte distribution wid th standard deviationOrdered By: August Hobson on 05-16-2025 Erythrocyte distribution width (RBC) [Ratio] 48.9 fl High 35.1-43.9 [facility] Glomerular filtration rate ( GFR) estimation/1.73 sq m using serum, plasma, or whole bOrdered By: August Hobson on 05-16-2025 GFR/1.73 sq M.predicted among non-blacks MDRD (S/P/Bld) [Vol rate/Area] 99 mL/min/{1.73_m2} >60 [facility] Comment on above: mL/min/1.73m2 CKD-EP I Creatinine Equation (2020) Hematocrit Auto (Bld) [Volum e fraction]Ordered By: August Hobson on 05-16-2025 Hematocrit (Bld) [Volume fraction] 41.2 % 37-47 [facility] Hemoglobin measurementOrdere d By: August Hobson on 05-16-2025 Hemoglobin (Bld) [Mass/Vol] 13.2 g/dL 12.0-15.0 [facility] Immature granulocytes/100 WB C Auto (Bld)Ordered By: August Hobson on 05-16-2025 Immature granulocytes/100 WBC (Bld) 0.800 % 0.0-0.9 [facility] Comment on above: IG% - Immature Granu locytes (promyelocytes, myelocytes and metamyelocytes) > 1% indicates that a LEFT SHIFT is Present. L501.4021on 05-16-2025 Trop T High Sen < 6 Normal <=14 [facility] Comment on above: Performed By: #### L 499.0042 #### [facility] [place], [address] MCV (mean corpuscular volume ) determinationOrdered By: August Hobson on 05-16-2025 MCV (RBC) [Entitic vol] 87.7 fL 81-99 [facility] Mean corpuscular hemoglobin (MCH) determinationOrdered By: August Hobson on 05-16-2025 MCH (RBC) [Entitic mass] 28.1 pg 27.0-32.0 [facility] Mean corpuscular hemoglobin concentration (MCHC) determinationOrdered By: August Hobson on 05-16-2025 MCHC (RBC) [Mass/Vol] 32.0 g/dL 32-36 [facility] Mean platelet volume determi nationOrdered By: August Hobson on 05-16-2025 Platelet mean volume (Bld) [Entitic vol] 10.5 fL 6.2-12.0 [facility] Monocyte percentageOrdered B y: August Hobson on 05-16-2025 Monocytes/100 WBC (Bld) 10.3 % High 0-10 [facility] Neutrophil percentageOrdered By: August Hobson on 05-16-2025 Neutrophils/100 WBC (Bld) 65.3 % 47-70 [facility] Nucleated red blood cell per centageOrdered By: August Hobson on 05-16-2025 Nucleated RBC/100 WBC (Bld) [Ratio] 0 % 0-5 [facility] Platelet countOrdered By: [place] Hobson on 05-16-2025 Platelets (Bld) [#/Vol] 246 10*3/uL 150-450 [facility] Potassium measurement (mass/ volume)Ordered By: August Hobson on 05-16-2025 Potassium (Unsp spec) [Mass/Vol] 4.0 mmol/L 3.3-5.1 [facility] RBC Auto (Bld) [#/Vol]Ordere d By: August Hobson on 05-16-2025 RBC (Bld) [#/Vol] 4.70 10*6/uL 4.2-5.4 [facility] Serum creatinine measurement (mass/volume)Ordered By: August Hobson on 05-16-2025 Creatinine [Mass/Vol] 0.62 mg/dL Low 0.70-1.20 [facility] Serum glucose measurement (m ass/volume)Ordered By: August Hobson on 05-16-2025 Glucose [Mass/Vol] 114 mg/dL High 70-99 [facility] Serum or plasma calcium merissa urement (mass/volume)Ordered By: August Hobson on 05-16-2025 Calcium [Mass/Vol] 9.2 mg/dL 7.6-11.0 [facility] Serum or plasma urea nitroge n measurement (mass/volume)Ordered By: August Hobson on 05-16-2025 Urea nitrogen [Mass/Vol] 18 mg/dL 4-19 [facility] Sodium levelOrdered By: Scar Hobson on 05-16-2025 Sodium [Moles/Vol] 137 mmol/L 133-145 [facility] Troponin T HS 2 HRon 025 Trop T High Sen < 6 Normal <=14 [facility] Comment on above: Performed By: #### L 501.080 #### [facility] [address] [place], [address] Troponin T HS 4 HRon 025 Trop T High Sen Normal <=14 [facility] Comment on above: Result Comment: NO S PECIMEN COLLECTED. PATIENT DEPARTED ED. Performed By: #### L 501.080 #### [facility] [address] [place], [place], [address] Troponin T.cardiac [Mass/vol ume] in Serum or Plasma by High sensitivity methodOrdered By: August Hobson on 05-16-2025 Troponin T.cardiac High sensitivity method [Mass/Vol] < 6 ng/L <14 [facility] Comment on above: Delta: 8 on 01/14/25 -1355 White blood cell (WBC) count Ordered By: August Hobson on 05-16-2025 WBC (Bld) [#/Vol] 9.2 10*3/uL 4.4-11.0 [facility] Nerve Blockon 05-14-2025 [facility] Work Phone: [place] [facility] Work Phone: No Panel Informationon 05-14 Radiology Study observation (narrative) [facility] Work Phone: US GUIDED PAIN PROCEDUREon 0 05-14-2025 US GUIDED PAIN PROCEDURE These images are not reportable by radiology and will not be interpreted by Radiologists. Normal [facility] US guided pain procedureon 0 05-14-2025 These images are not reportable by radiology and will not be interpreted by Radiologists. IMAGING Chest without Contraston Chest without Contrast [facility] Imaging Services [address] [place] [address] Chest without Contrast MR#: [id number] Acct: [id number] Name: SIOBHAN HAAS Rep #: [id number] : 1960 F 64 From: Sean cadet MD PCP: Dr. Louis Penn MD Status: REG CLI Study: Chest without Contrast Date of Exam: 05/08/25 Exam# [id number] Ordering Dr: Dania Edge [employer]PARATION [employer]ANT REPAIRER PRE[employer]ATION [employer]ANT REPAIRER-C PROCEDURE: CHEST WITHOUT CONTRAST 05/08/2025 REASON FOR EXAM: SOLITARY PULMONARY NODULE Follow-up examination. TECHNIQUE: Chest CT without contrast. Coronal and Sagittal reconstruction series were provided. One or more dose reduction techniques were used (e.g., Automated exposure control, adjustment of the mA and/or kV according to patient size, use of iterative reconstruction technique RADIATION DOSE SUMMARY: CTDlvol: 22.71 mGy DLP: 721.87 mGycm COMPARISON: Prior examination dated January 14, 2025. FINDINGS: Hardware: None Lymph nodes: Small benign-appearing bilateral axillary lymph nodes. Heart and Vasculature: The heart is nonenlarged. Coronary Artery Calcifications: Present Lungs and Airways: The previously seen left lower lobe infiltrate as cleared. No nodules are seen. Pleura: No pleural effusion. Upper Abdomen: Unremarkable. Bones: Degenerative changes of the thoracic spine. CT/Chest without Contrast IMPRESSION: Coronary artery calcification (CAC) is is present Previously seen left lower lobe infiltrate as cleared. Reading Location: [place] [address] CC: GINO Edge; Dr. Louis Penn MD Vp Design: Signed [facility] 02-19-2025 [facility] Telephone (PNMDNA) SIOBHAN HAAS ([id number]) 1960 F Date Time Provider Department 02/19/25 LOUIS BHAGAT PNMISAEL During your visit today, we recorded the following information about you: Joyce Tatyana Dorina Krystyna 02/19/2025 4:12 PM Signed Shirley Valencia, from [facility] [place], is requesting a return call to discuss preparing the patient for her up coming visit with Dr. Bhagat. Per Shirley, the patient is looking to get a pain pump. Shirley questions if there is any additional information needed before her visit. Also, the patient is a bilat amputee. Would it be better for her to come on a cot or in a wheel chair? Patient would need a Sole Lift in getting transferred to an exam table. Call to advise, . Yemi Marti MA 02/20/2025 9:32 AM Addendum Called and spoke with Shirley regarding below. Informed her that Dr. Bhagat does not specialize or treat with pain pumps. Informed her that Dr. Bhagat is an interventional pain management provider who specializes in spine related issues. He main focus is physical therapy and injections. Provided radha with the main phone number [phone] to reschedule with a provider who specializes in pain pumps. Routing to clerical to help assist as well. Radha verbalized understanding. Thu Solis 02/20/2025 10:46 AM Signed Called Shirley - no answer. Left voicemail with [facility]'s phone number to reschedule. Thu Solis Allergies As of Date: 02/19/2025 Noted Allergy Reaction NORVASC (AMLODIPINE) 09/20/2019 7 - Swelling Date Reviewed: 10/03/2019 Reviewed by: Holly Becerra (Janet) - Fully Assessed Reason for Visit: Patient Question [1477] Prescriptions as of 02/20/2025 - Omeprazole (PRILOSEC) 40 mg capsule Take 1 capsule by mouth once daily. - gabapentin (NEURONTIN) 300 mg capsule Take 300 mg by mouth five times daily. - cyclobenzaprine HCl (FLEXERIL ORAL) Take 1 tablet by mouth once daily. - citalopram (CELEXA) 40 mg tablet Take 40 mg by mouth once daily. - spironolactone (ALDACTONE) 25 mg tablet Take 25 mg by mouth once daily. - mupirocin (BACTROBAN) 2 % ointment Apply 1 application to affected area twice daily. Location: finger - ALPRAZolam (XANAX) 0.5 mg tablet - amLODIPine (NORVASC) 10 mg tablet - cyclobenzaprine (FLEXERIL) 10 mg tablet - hydroxychloroquine (PLAQUENIL) 200 mg tablet - Losartan-Hydrochlorothiazid e 100-12.5 mg per tablet - methotrexate 2.5 mg tablet - PARoxetine (PAXIL) 40 mg tablet - potassium chloride (K-TAB) 10 mEq tablet 20 mEq. - pramipexole (MIRAPEX) 1.5 mg tablet - docusate sodium (COLACE) 100 mg capsule Take 100 mg by mouth four times daily. - loratadine (CLARITIN) 10 mg tablet Take 10 mg by mouth once daily. - folic acid 1 mg tablet Take 1 mg by mouth once daily. - omalizumab (XOLAIR) 150 mg injection Inject subcutaneously one time only. - ondansetron 4 mg tablet Take 1 tablet by mouth every 8 hours as needed. - gabapentin (NEURONTIN) 800 mg tablet Take 800 mg by mouth three times daily. - lisinopril-hydrochlorothiaz rashel (ZESTORETIC) 20-25 mg per tablet Take 1 tablet by mouth once daily. - budesonide-formoterol (SYMBICORT) 160-4.5 mcg/actuation inhaler Inhale 2 Puffs as instructed twice daily. - rOPINIRole 2 mg tablet Take 2 mg by mouth daily at bedtime. - PARoxetine 30 mg tablet Take 30 mg by mouth once daily. - mexiletine 150 mg capsule Take 150 mg by mouth three times daily. - meloxicam (MOBIC) 7.5 mg tablet Take 7.5 mg by mouth twice daily. - fentaNYL (DURAGESIC) 50 mcg/hr Apply 1 Patch as directed every 72 hours. - docusate sodium (COLACE) 100 mg capsule Take 100 mg by mouth twice daily. - fluticasone (FLONASE) 50 mcg/actuation nasal spray Use 1 [place] in each nostril twice daily. - ALBUTEROL SULFATE (PROVENTIL HFA INHALATION) Inhale as instructed as needed. - albuterol 2.5 mg /3 mL (0.083 %) nebulizer solution Use 2.5 mg via nebulizer as needed. - tiotropium (SPIRIVA WITH HANDIHALER) 18 mcg inhalation capsule Inhale 18 mcg as instructed once daily. - montelukast (SINGULAIR) 10 mg tablet Take 10 mg by mouth daily at bedtime. - oxycodone hcl/acetaminophen(PERCOCET 5 MG-325 MG TAB) Take one(2) tablet four(4) times daily as needed for pain. - omeprazole(PRILOSEC 20 MG CAP) Take one(1) capsule daily. Meds Comments as of 08/13/2015: Problem List As Of Date 02/19/2025 Noted Resolved ASTHMA UNSPECIFIED [J45.909] Hemorrhage of rectum and anus [K62.5] 03/15/2009 Asthma with acute exacerbation [J45.901] 07/28/2013 HTN (hypertension) [I10] 07/28/2013 Depression [F32.A] 07/28/2013 Back pain [M54.9] 07/28/2013 Encounter Status:Closed by YEMI MARTI on 02/20/25 Normal [facility] Pulmonary Visit Reporton Pulmonary Visit Report [facility] [place] [address] [place] [address] OFFICE VISIT Date of Service: 01/27/25 MR#: [id number] Acct: [id number] Name: SIOBHAN HAAS Rep #: [id number] : 1960 Provider: GINO Cruz Age/Sex: 64/F Location: [facility].PMW Status: Signed Assessment and Plan Assessment and Plan (1) Asthma: Status: Chronic Qualifiers: Asthma severity: moderate Asthma complication type: uncomplicated Asthma persistence: persistent Qualified Code(s): J45.40 - Moderate persistent asthma, uncomplicated Plan: She has returned to baseline. No signs of exacerbation of asthma today. No change in maintenance medications. No additional testing at this time. Contact the office with any signs of new or worsening symptoms. Follow-up in 6 months. (2) Sleep apnea: Status: Chronic Qualifiers: Sleep apnea type: obstructive Qualified Code(s): G47.33 - Obstructive sleep apnea (adult) (pediatric) Comment: BiPAP 14/07 Plan: She is using and benefiting from Pap therapy. No indication for titration study at this time. Contact the office for any new or worsening symptoms in the meantime. Follow-up in 6 months. (3) Morbid obesity: Status: Chronic Plan: Complicates exam, plan, care and prognosis. Encourage weight loss. Plan Details Additional Comments: This note was generated with [employer] software. It may contain incorrect words, spelling, and punctuation that were not noted in checking the note before signing. 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 She is in a wheelchair, currently on room air and accompanied today by a nurses aide from [facility]. She was seen in the emergency department on January 14, 2025 with complaints of cough and fever. She was admitted and diagnosed with pneumonia. She stayed in the hospital until January 17, 2025. She was discharged on 5 days of Levaquin. During her hospital stay she was found to be hypoxic and required upwards of 8 L/min of supplemental oxygen. However, she was successfully weaned and did not require supplemental oxygen at discharge. Patient reports that she has returned to baseline. She is denying any difficulty with shortness of breath. She denies any cough, sputum injection or hemoptysis. She denies any wheezing, chest tightness, chest pain or palpitations. She denies any fever, chills or body aches. She is compliant with Advair twice daily. She does report rinsing her mouth out after each use. She denies any medication side effect such as or throat or thrush. She is also compliant with Flonase, Mucinex twice daily, Vistaril, loratadine and Singulair. She has not recently utilized albuterol. She is no longer on supplemental oxygen. She is wheelchair-bound due to bilateral lower extremity amputations. She reports waking feeling rested and refreshed with the use of her PAP device. She does not require naps. She is not nodding off to sleep unintentionally. She denies any difficulty with dry mouth. She is not having morning headaches. Compliance report for the past 30 days shows 60% compliance with an average use of 2 hours and 40 minutes per night. Current settings BiPAP 14/10 cmH2O with residual AHI of 2.1 events per hour. Leaks are occurring occasionally. 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 Chief Complaint: excision of lipoma-thigh Cutter Finisher Required: No DME Vendor: unknown Accompanied by: Caregiver Allergies losartan (From Cozaar) Allergy (Mild, Verified 01/27/25 10:44) Rash cefepime Allergy (Unknown, Verified 01/27/25 10:44) NEEDS FOLLOW-UP clonazepam Allergy (Unknown, Verified 01/27/25 10:44) NEEDS FOLLOW-UP hydromorphone Allergy (Unknown, Verified 01/27/25 10:44) NEEDS FOLLOW-UP ketamine Allergy (Unknown, Verified 01/27/25 10:44) NEEDS FOLLOW-UP lisinopril Allergy (Unknown, Verified 01/27/25 10:44) NEEDS FOLLOW-UP vancomycin Allergy (Verified 01/27/25 10:44) Rash amlodipine Adverse Reaction (Verified 01/27/25 10:44) Swelling Medications ???Medication ???Instructions ???Recorded ???Confirmed ???Type albuterol sulfate 90 mcg/actuation 2 puff inhalation Q6H PRN 01/27/25 Rx aerosol inhale (more content not included)... Normal [facility] Culture, Blood (WB)on 2024 CUB Blood cultures x2, f rom two different sites No growth in 5 days. Normal [facility] Comment on above: Performed By: #### M 200.1000 ####[facility] [address] [place], [address] Performed By: #### L 503.6005, L100.0100, M200.1000, L500.4050, L300.4310, L300.3900 ####[facility] [address] [place], [address] Bedside Glucoseon 01-17-2025 FINGERSTICK GLU 145 mg/dL High 74-106 [facility] Comment on above: Result Comment: ROBERTO BARTHOLOMEW OF PATIENT CARE PER NURSING PROTOCOL Performed By: #### L 501.080 #### [facility] [address] [place], [address] FINGERSTICK GLU 113 mg/dL High 74-106 [facility] Comment on above: Result Comment: ROBERTO TSANGENT OF PATIENT CARE PER NURSING PROTOCOL Performed By: #### L 501.080 #### [facility] [address] [place], [place], [address] [facility] deOrdered By: Rigo Trinidad on 01-17-2025 Bedside Glucose (Misc Panel) 145 mg/dL High 74-106 [facility] Comment on above: MANAGEMENT OF PATIEN T CARE PER NURSING PROTOCOL Glucose [Mass/Vol] 145 mg/dL High 74-106 [facility] Comment on above: MANAGEMENT OF PATIEN T CARE PER NURSING PROTOCOL Respiratory Cultureon 2024 RESPC Mixed normal respira tory pierce. No Haemophilus, Streptococcus pneumoniae, beta-hemolytic Streptococcus or Staphylococcus aureus isolated. Normal [facility] Comment on above: Performed By: #### M 100.2400, M100.2000 ####[facility] [address] [place], [place], [address] Absolute lymphocyte countOrd ered By: Rigo Trinidad on 01-16-2025 Lymphocytes Auto (Unsp spec) [#/Vol] 1.29 10*3/uL 0.83-4.51 [facility] Absolute neutrophil countOrd ered By: Rigo Trinidad on 01-16-2025 Neutrophils (Bld) [#/Vol] 4.3 10*3/uL 2.0-7.7 [facility] Anion gap in Serum or Plasma Ordered By: Rigo Trinidad on 01-16-2025 Anion gap [Moles/Vol] 9 mmol/L - [facility] Automated lymphocyte count a s percentage of total leukocytesOrdered By: Rigo Trinidad on 01-16-2025 Lymphocytes/100 WBC Auto (Unsp spec) 19.5 % - [facility] BUN/creatinine ratioOrdered By: Rigo Trinidad on 01-16-2025 Urea nitrogen/Creatinine [Mass ratio] 14.2 mg/mg - [facility] Basic Metabolic Profile (BMP )on 01-16-2025 BUN/CRE 14.2 RATIO Normal - [facility] Comment on above: Performed By: #### L 499.0042 #### [facility] [address] [place], [address] Calcium [Mass/Vol] 8.5 mg/dL Normal 7.6-11.0 [facility] Comment on above: Performed By: #### L 499.0042 #### [facility] [address] [place], [address] Chloride [Moles/Vol] 105 mmol/L Normal 98-108 [facility] Comment on above: Performed By: #### L 499.0042 #### [facility] [address] [place], [address] CO2 [Moles/Vol] 24.7 mmol/L Normal 21.0-32.0 [facility] Comment on above: Performed By: #### L 499.0042 #### [facility] [address] [place], [address] Creatinine [Mass/Vol] 0.56 mg/dL Low 0.70-1.20 [facility] Comment on above: Performed By: #### L 499.0042 #### [facility] [address] [place], [address] ECRCL 109.37 ml/min Normal 50-250 [facility] Comment on above: Performed By: #### L 499.0042 #### [facility] [address] [place], [address] GAP 9 Normal 5-15 [facility] Comment on above: Performed By: #### L 499.0042 #### [facility] [address] [place], [address] GFR/1.73 sq M.predicted among non-blacks MDRD (S/P/Bld) [Vol rate/Area] 101 mL/min/{1.73_m2} Normal >60 [facility] Comment on above: Result Comment: mL/m in/1.73m2 CKD-EPI Creatinine Equation (2020) Performed By: #### L 499.0042 #### [facility] [address] [place], [address] Glucose [Mass/Vol] 104 mg/dL High 70-99 [facility] Comment on above: Performed By: #### L 499.0042 #### [facility] [address] [place], [address] Potassium [Moles/Vol] 3.8 mmol/L Normal 3.3-5.1 [facility] Comment on above: Performed By: #### L 499.0042 #### [facility] [address] [place], [address] Sodium [Moles/Vol] 138 mmol/L Normal 133-145 [facility] Comment on above: Performed By: #### L 499.0042 #### [facility] [address] [place], [address] Urea nitrogen [Mass/Vol] 8 mg/dL Normal 4-19 [facility] Comment on above: Performed By: #### L 499.0042 #### [facility] [address] [place], [address] Basophil percentageOrdered B y: Rigo Trinidad on 01-16-2025 Basophils/100 WBC (Bld) 0.6 % 0-1 [facility] Bedside Glucoseon 01-16-2025 FINGERSTICK GLU 111 mg/dL High 74-106 [facility] Comment on above: Result Comment: ROBERTO GEMENT OF PATIENT CARE PER NURSING PROTOCOL Performed By: #### L 501.080 #### [facility] [address] [place], [address] FINGERSTICK GLU 119 mg/dL High 74-106 [facility] Comment on above: Result Comment: ROBERTO GEMENT OF PATIENT CARE PER NURSING PROTOCOL Performed By: #### L 499.0042 #### [facility] [address] [place], [address] FINGERSTICK GLU 167 mg/dL High 74-106 [facility] Comment on above: Result Comment: ROBERTO GEMENT OF PATIENT CARE PER NURSING PROTOCOL Performed By: #### L 501.080 #### [facility] [address] [place], [address] FINGERSTICK GLU 123 mg/dL High 74-106 [facility] Comment on above: Result Comment: ROBERTO GEMENT OF PATIENT CARE PER NURSING PROTOCOL Performed By: #### L 501.080 #### [facility] [address] [place], [address] CBC W/Diff, Automatedon 12-30 Absolute Lymph 1.29 X10 3/uL Normal 0.83-4.51 [facility] Comment on above: Performed By: #### L 499.0042 #### [facility] [address] [place], [address] Absolute Neut 4.3 X10 3/uL Normal 2.0-7.7 [facility] Comment on above: Performed By: #### L 499.0042 #### [facility] [address] [place], [address] Basophils/100 WBC (Bld) 0.6 % Normal 0-1 [facility] Comment on above: Performed By: #### L 499.0042 #### [facility] [address] [place], [address] Eosinophils/100 WBC (Bld) 3.2 % Normal 0-5 [facility] Comment on above: Performed By: #### L 499.0042 #### [facility] [address] [place], [address] Erythrocyte distribution width (RBC) [Ratio] 15.4 % High 11.6-14.6 [facility] Comment on above: Performed By: #### L 499.0042 #### [facility] [address] [place], [address] Hematocrit (Bld) [Volume fraction] 31.8 % Low 37-47 [facility] Comment on above: Performed By: #### L 499.0042 #### [facility] [address] [place], [address] Hemoglobin (Bld) [Mass/Vol] 10.3 g/dL Low 12.0-15.0 [facility] Comment on above: Performed By: #### L 499.0042 #### [facility] [address] [place], [address] IG% 0.900 Normal 0.0-0.9 [facility] Comment on above: Result Comment: IG% - Immature Granulocytes (promyelocytes, myelocytes and metamyelocytes) > 1% indicates that a LEFT SHIFT is Present. Performed By: #### L 499.0042 #### [facility] [address] [place], [address] Lymphocytes/100 WBC (Bld) 19.5 % Normal 19-41 [facility] Comment on above: Performed By: #### L 499.0042 #### [facility] [address] [place], [address] MCH (RBC) [Entitic mass] 28.5 pg Normal 27.0-32.0 [facility] Comment on above: Performed By: #### L 499.0042 #### [facility] [address] [place], [address] MCHC (RBC) [Mass/Vol] 32.4 g/dL Normal 32-36 [facility] Comment on above: Performed By: #### L 499.0042 #### [facility] [address] [place], [address] MCV (RBC) [Entitic vol] 87.8 fL Normal 81-99 [facility] Comment on above: Performed By: #### L 499.0042 #### [facility] [address] [place], [address] Monocytes/100 WBC (Bld) 11.2 % High 0-10 [facility] Comment on above: Performed By: #### L 499.0042 #### [facility] [address] [place], [address] Neutrophils/100 WBC (Bld) 64.6 % Normal 47-70 [facility] Comment on above: Performed By: #### L 499.0042 #### [facility] [address] [place], [address] Nucleated RBC (Bld) [#/Vol] 0 10*3/uL Normal 0-5 [facility] Comment on above: Performed By: #### L 499.0042 #### [facility] [address] [place], [address] Platelet mean volume (Bld) [Entitic vol] 10.8 fL Normal 6.2-12.0 [facility] Comment on above: Performed By: #### L 499.0042 #### [facility] [address] [place], [address] Platelets (Bld) [#/Vol] 229 10*3/uL Normal 150-450 [facility] Comment on above: Performed By: #### L 499.0042 #### [facility] [address] [place], [address] RBC (Bld) [#/Vol] 3.62 10*6/uL Low 4.2-5.4 [facility] Comment on above: Performed By: #### L 499.0042 #### [facility] [address] [place], [address] RDW SD 49.3 fl High 35.1-43.9 [facility] Comment on above: Performed By: #### L 499.0042 #### [facility] [address] [place], [address] WBC (Bld) [#/Vol] 6.6 10*3/uL Normal 4.4-11.0 [facility] Comment on above: Performed By: #### L 499.0042 #### [facility] [address] [place], [address] Carbon dioxide, total [Moles /volume] in Central venous bloodOrdered By: Rigo Trinidad on 01-16-2025 CO2 [Moles/Vol] 24.7 mmol/L 21.0-32.0 [facility] Chloride assayOrdered By: Vania Trinidad on 01-16-2025 Chloride [Moles/Vol] 105 mmol/L 98-108 [facility] Eosinophil percentageOrdered By: Rigo Trinidad on 01-16-2025 Eosinophils/100 WBC (Bld) 3.2 % 0-5 [facility] Erythrocyte distribution wid th (RBC) [Ratio]Ordered By: Rigo Trinidad on 01-16-2025 Erythrocyte distribution width (RBC) [Entitic vol] 49.3 fL High 35.1-43.9 [facility] Erythrocyte distribution wid th ratioOrdered By: Rigo Trinidad on 01-16-2025 Erythrocyte distribution width (RBC) [Ratio] 15.4 % High 11.6-14.6 [facility] Erythrocyte distribution wid th standard deviationOrdered By: Rigo Trinidad on 01-16-2025 Erythrocyte distribution width (RBC) [Ratio] 49.3 fl High 35.1-43.9 [facility] Estimation of creatinine jessica aranceOrdered By: Rigo Trinidad on 01-16-2025 Estimated Creatinine Clearance Calc 109.37 ml/min 50-250 [facility] GFR/1.73 sq M.predicted beth g non-blacks MDRD (S/P/Bld) [Vol rate/Area]Ordered By: Rigo Trinidad on 01-16-2025 Estimated GFR (MDRD) Non-Af Amer 101 >60 [facility] Comment on above: mL/min/1.73m2 CKD-EP I Creatinine Equation (2020) Glomerular filtration rate ( GFR) estimation/1.73 sq m using serum, plasma, or whole bOrdered By: Rigo Trinidad on 01-16-2025 GFR/1.73 sq M.predicted among non-blacks MDRD (S/P/Bld) [Vol rate/Area] 101 mL/min/{1.73_m2} >60 [facility] Comment on above: mL/min/1.73m2 CKD-EP I Creatinine Equation (2020) Hematocrit Auto (Bld) [Volum e fraction]Ordered By: Rigo Trinidad on 01-16-2025 Hematocrit (Bld) [Volume fraction] 31.8 % Low 37-47 [facility] Hemoglobin measurementOrdere d By: Rigo Trinidad on 01-16-2025 Hemoglobin (Bld) [Mass/Vol] 10.3 g/dL Low 12.0-15.0 [facility] Immature granulocytes/100 WB C Auto (Bld)Ordered By: Rigo Trinidad on 01-16-2025 Immature granulocytes/100 WBC (Bld) 0.900 % 0.0-0.9 [facility] Comment on above: IG% - Immature Granu locytes (promyelocytes, myelocytes and metamyelocytes) > 1% indicates that a LEFT SHIFT is Present. Lymphocytes Auto (Unsp spec) [#/Vol]Ordered By: Rigo Trinidad on 01-16-2025 Lymphocytes (Bld) [#/Vol] 1.29 10*3/uL 0.83-4.51 [facility] Lymphocytes/100 WBC Auto (Un sp spec)Ordered By: Rigo Trinidad on 01-16-2025 Lymphocytes/100 WBC (Bld) 19.5 % 19-41 [facility] MCV (mean corpuscular volume ) determinationOrdered By: Rigo Trinidad on 01-16-2025 MCV (RBC) [Entitic vol] 87.8 fL 81-99 [facility] Mean corpuscular hemoglobin (MCH) determinationOrdered By: Rigo Trinidad on 01-16-2025 MCH (RBC) [Entitic mass] 28.5 pg 27.0-32.0 [facility] Mean corpuscular hemoglobin concentration (MCHC) determinationOrdered By: Rigo Trinidad on 01-16-2025 MCHC (RBC) [Mass/Vol] 32.4 g/dL 32-36 [facility] Mean platelet volume determi nationOrdered By: Rigo Trinidad on 01-16-2025 Platelet mean volume (Bld) [Entitic vol] 10.8 fL 6.2-12.0 [facility] Monocyte percentageOrdered B y: Rigo Trinidad on 01-16-2025 Monocytes/100 WBC (Bld) 11.2 % High 0-10 [facility] Neutrophil percentageOrdered By: Rigo Trinidad on 01-16-2025 Neutrophils/100 WBC (Bld) 64.6 % 47-70 [facility] Nucleated red blood cell per centageOrdered By: Rigo Trinidad on 01-16-2025 Nucleated RBC/100 WBC (Bld) [Ratio] 0 % 0-5 [facility] Platelet countOrdered By: Vania Trinidad on 01-16-2025 Platelets (Bld) [#/Vol] 229 10*3/uL 150-450 [facility] Potassium (Unsp spec) [Mass/ Vol]Ordered By: Rigo Trinidad on 01-16-2025 Potassium [Moles/Vol] 3.8 mmol/L 3.3-5.1 [facility] Potassium measurement (mass/ volume)Ordered By: Rigo Trinidad on 01-16-2025 Potassium (Unsp spec) [Mass/Vol] 3.8 mmol/L 3.3-5.1 [facility] RBC Auto (Bld) [#/Vol]Ordere d By: Rigo Trinidad on 01-16-2025 RBC (Bld) [#/Vol] 3.62 10*6/uL Low 4.2-5.4 [facility] Serum creatinine measurement (mass/volume)Ordered By: Rigo Trinidad on 01-16-2025 Creatinine [Mass/Vol] 0.56 mg/dL Low 0.70-1.20 [facility] Serum glucose measurement (m ass/volume)Ordered By: Rigo Trinidad on 01-16-2025 Glucose [Mass/Vol] 104 mg/dL High 70-99 [facility] Serum or plasma calcium merissa urement (mass/volume)Ordered By: Rigo Trinidad on 01-16-2025 Calcium [Mass/Vol] 8.5 mg/dL 7.6-11.0 [facility] Serum or plasma urea nitroge n measurement (mass/volume)Ordered By: Rigo Trinidad on 01-16-2025 Urea nitrogen [Mass/Vol] 8 mg/dL 4-19 [facility] Sodium levelOrdered By: Loi Trinidad on 01-16-2025 Sodium [Moles/Vol] 138 mmol/L 133-145 [facility] White blood cell (WBC) count Ordered By: Rigo Trinidad on 01-16-2025 WBC (Bld) [#/Vol] 6.6 10*3/uL 4.4-11.0 [facility] Basic Metabolic Profile (BMP )on 01-15-2025 BUN/CRE 17.0 RATIO Normal 10-20 [facility] Comment on above: Performed By: #### L 499.0042 #### [facility] [address] [place], [address] Calcium [Mass/Vol] 8.5 mg/dL Normal 7.6-11.0 [facility] Comment on above: Performed By: #### L 499.0042 #### [facility] [address] [place], [address] Chloride [Moles/Vol] 104 mmol/L Normal 98-108 [facility] Comment on above: Performed By: #### L 499.0042 #### [facility] [address] [place], [address] CO2 [Moles/Vol] 24.6 mmol/L Normal 21.0-32.0 [facility] Comment on above: Performed By: #### L 499.0042 #### [facility] [address] [place], [address] Creatinine [Mass/Vol] 0.52 mg/dL Low 0.70-1.20 [facility] Comment on above: Performed By: #### L 499.0042 #### [facility] [address] [place], [address] ECRCL 100.21 ml/min Normal 50-250 [facility] Comment on above: Performed By: #### L 499.0042 #### [facility] [address] [place], [address] GAP 9 Normal 5-15 [facility] Comment on above: Performed By: #### L 499.0042 #### [facility] [address] [place], [address] GFR/1.73 sq M.predicted among non-blacks MDRD (S/P/Bld) [Vol rate/Area] 103 mL/min/{1.73_m2} Normal >60 [facility] Comment on above: Result Comment: mL/m in/1.73m2 CKD-EPI Creatinine Equation (2020) Performed By: #### L 499.0042 #### [facility] [address] [place], [address] Glucose [Mass/Vol] 96 mg/dL Normal 70-99 [facility] Comment on above: Performed By: #### L 499.0042 #### [facility] [address] [place], [address] Potassium [Moles/Vol] 3.9 mmol/L Normal 3.3-5.1 [facility] Comment on above: Performed By: #### L 499.0042 #### [facility] [address] [place], [address] Sodium [Moles/Vol] 138 mmol/L Normal 133-145 [facility] Comment on above: Performed By: #### L 499.0042 #### [facility] [address] [place], [address] Urea nitrogen [Mass/Vol] 9 mg/dL Normal 4-19 [facility] Comment on above: Performed By: #### L 499.0042 #### [facility] [address] [place], [address] Bedside Glucoseon 01-15-2025 FINGERSTICK GLU 133 mg/dL High 74-106 [facility] Comment on above: Result Comment: ROBERTO GEMENT OF PATIENT CARE PER NURSING PROTOCOL Performed By: #### L 499.0042 #### [facility] [address] [place], [address] FINGERSTICK GLU 114 mg/dL High 74-106 [facility] Comment on above: Result Comment: ROBERTO GEMENT OF PATIENT CARE PER NURSING PROTOCOL Performed By: #### L 499.0042 #### [facility] [address] [place], [address] FINGERSTICK GLU 101 mg/dL Normal 74-106 [facility] Comment on above: Result Comment: ROBERTO GEMENT OF PATIENT CARE PER NURSING PROTOCOL Performed By: #### L 499.0042 #### [facility] [address] [place], [address] FINGERSTICK GLU 93 mg/dL Normal 74-106 [facility] Comment on above: Result Comment: ROBERTO GEMENT OF PATIENT CARE PER NURSING PROTOCOL Performed By: #### L 501.080 #### [facility] [address] [place], [address] CBC W/Diff, Automatedon 04- Absolute Lymph 1.26 X10 3/uL Normal 0.83-4.51 [facility] Comment on above: Performed By: #### L 499.0042 #### [facility] [address] [place], [address] Absolute Neut 7.6 X10 3/uL Normal 2.0-7.7 [facility] Comment on above: Performed By: #### L 499.0042 #### [facility] [address] [place], [address] Basophils/100 WBC (Bld) 0.3 % Normal 0-1 [facility] Comment on above: Performed By: #### L 499.0042 #### [facility] [address] [place], [address] Eosinophils/100 WBC (Bld) 1.4 % Normal 0-5 [facility] Comment on above: Performed By: #### L 499.0042 #### [facility] [address] [place], [address] Erythrocyte distribution width (RBC) [Ratio] 15.4 % High 11.6-14.6 [facility] Comment on above: Performed By: #### L 499.0042 #### [facility] [address] [place], [address] Hematocrit (Bld) [Volume fraction] 33.1 % Low 37-47 [facility] Comment on above: Performed By: #### L 499.0042 #### [facility] [address] [place], [address] Hemoglobin (Bld) [Mass/Vol] 10.8 g/dL Low 12.0-15.0 [facility] Comment on above: Performed By: #### L 499.0042 #### [facility] [address] [place], [address] IG% 0.400 Normal 0.0-0.9 [facility] Comment on above: Result Comment: IG% - Immature Granulocytes (promyelocytes, myelocytes and metamyelocytes) > 1% indicates that a LEFT SHIFT is Present. Performed By: #### L 499.0042 #### [facility] [address] [place], [address] Lymphocytes/100 WBC (Bld) 12.8 % Low 19-41 [facility] Comment on above: Performed By: #### L 499.0042 #### [facility] [address] [place], [address] MCH (RBC) [Entitic mass] 28.5 pg Normal 27.0-32.0 [facility] Comment on above: Performed By: #### L 499.0042 #### [facility] [address] [place], [address] MCHC (RBC) [Mass/Vol] 32.6 g/dL Normal 32-36 [facility] Comment on above: Performed By: #### L 499.0042 #### [facility] [address] [place], [address] MCV (RBC) [Entitic vol] 87.3 fL Normal 81-99 [facility] Comment on above: Performed By: #### L 499.0042 #### [facility] [address] [place], [address] Monocytes/100 WBC (Bld) 8.3 % Normal 0-10 [facility] Comment on above: Performed By: #### L 499.0042 #### [facility] [address] [place], [address] Neutrophils/100 WBC (Bld) 76.8 % High 47-70 [facility] Comment on above: Performed By: #### L 499.0042 #### [facility] [address] [place], [address] Nucleated RBC (Bld) [#/Vol] 0 10*3/uL Normal 0-5 [facility] Comment on above: Performed By: #### L 499.0042 #### [facility] [address] [place], [address] Platelet mean volume (Bld) [Entitic vol] 10.4 fL Normal 6.2-12.0 [facility] Comment on above: Performed By: #### L 499.0042 #### [facility] [address] [place], [address] Platelets (Bld) [#/Vol] 219 10*3/uL Normal 150-450 [facility] Comment on above: Performed By: #### L 499.0042 #### [facility] [address] [place], [address] RBC (Bld) [#/Vol] 3.79 10*6/uL Low 4.2-5.4 [facility] Comment on above: Performed By: #### L 499.0042 #### [facility] [address] [place], [address] RDW SD 49.7 fl High 35.1-43.9 [facility] Comment on above: Performed By: #### L 499.0042 #### [facility] [address] [place], [address] WBC (Bld) [#/Vol] 9.9 10*3/uL Normal 4.4-11.0 [facility] Comment on above: Performed By: #### L 499.0042 #### [facility] [address] [place], [address] Gram Stainon 01-15-2025 GS Acceptable Specimen? Yes (<25 Epithelial cells per/lpf) Gram Stain 1+ Gram positive cocci Rare Epithelial cells Normal [facility] Comment on above: Performed By: #### M 100.2400, M100.2000 ####[facility] [address] [place], [address] Urine Cultureon 01-15-2025 URC Culture exhibits no growth. Normal [facility] Comment on above: Performed By: #### L 400.0001, M100.2200 ####[facility] [address] [place], [address] 12 Lead EKGon 01-14-2025 12 Lead EKG [facility] Cardiovascular Services [address] [place] [address] 12 Lead EKG 01/14/25 0831 MR#: [id number] Acct: [id number] Name: SIOBHAN HAAS Rep #: [id number] : 1960 64 From: Teresa Aldridge MD Attending Dr: Dr. Rigo Trinidad MD Status : DIS IN Ordering Dr: Colt Chappell DO Date: 01/14/25 Location: U Sex: F C Admitted: 01/14/25 Test Reason : SOB Blood Pressure : */* mmHG Vent. Rate : 95 BPM Atrial Rate : 95 BPM P-R Int : 164 ms QRS Dur : 88 ms QT Int : 324 ms P-R-T Axes : 32 -29 63 degrees QTcB Int : 407 ms Normal sinus rhythm Cannot rule out Anterior infarct , age undetermined Abnormal ECG When compared with ECG of 14-Jan-2025 08:31, MANUAL COMPARISON REQUIRED DATA IS UNCONFIRMED Confirmed by Teresa Aldridge ([id number]), graphics editor ANJUM BERNSTEIN ([id number]) on 01/19/2025 8:48:33 AM Referred By: Confirmed By: Teresa Aldridge 01/19/25 0848 Date Teresa Aldridge MD CC: Dr. Colt Chappell DO; Dr. Rigo Trinidad MD; Dr. Louis Penn MD Signed Normal [facility] Absolute neutrophil countOrd ered By: Colt Chappell on 01-14-2025 Neutrophils (Bld) [#/Vol] 10.3 10*3/uL High 2.0-7.7 [facility] Activated partial thrombopla stin time (aPTT) in platelet poor plasma by coagulation aOrdered By: Colt Chappell on 01-14-2025 aPTT Coag (PPP) [Time] 26.3 s 24.1-36.2 [facility] Anion gap in Serum or Plasma Ordered By: Colt Chappell on 01-14-2025 Anion gap [Moles/Vol] 11 mmol/L 5-15 [facility] Arterial patency Wrist arter y --pre arterial punctureOrdered By: Colt Chappell on 01-14-2025 [place] Test Positive [facility] Assessment of wrist artery p atency prior to arterial punctureOrdered By: Colt Chappell on 01-14-2025 Arterial patency Wrist artery --pre arterial puncture Positive [facility] BUN/creatinine ratioOrdered By: Colt Chappell on 01-14-2025 Urea nitrogen/Creatinine [Mass ratio] 17.1 mg/mg 10-20 [facility] Base excess Calc (BldV) [Mol es/Vol]Ordered By: Colt Chappell on 01-14-2025 Blood Gas Base Excess 4 mmol/L High -2-2 [facility] Basophil percentageOrdered B y: Colt Chappell on 01-14-2025 Basophils/100 WBC (Bld) 0.3 % 0-1 [facility] Bedside Glucoseon 01-14-2025 FINGERSTICK GLU 123 mg/dL High 74-106 [facility] Comment on above: Result Comment: ROBERTO GEMENT OF PATIENT CARE PER NURSING PROTOCOL Performed By: #### L 501.080 #### [facility] [address] [place], [address] FINGERSTICK GLU 98 mg/dL Normal 74-106 [facility] Comment on above: Result Comment: ROBERTO GEMENT OF PATIENT CARE PER NURSING PROTOCOL Performed By: #### L 501.080 #### [facility] [address] [place], [address] FINGERSTICK GLU 94 mg/dL Normal 74-106 [facility] Comment on above: Result Comment: ROBERTO GEMENT OF PATIENT CARE PER NURSING PROTOCOL Performed By: #### L 501.080 #### [facility] [address] [place], [address] Bilirubin Test strip Ql (U)O rdered By: Colt Chappell on 01-14-2025 Bilirubin Ql (U) Negative Negative [facility] Bilirubin, totalOrdered By: Colt Chappell on 01-14-2025 Bilirubin [Mass/Vol] 0.36 mg/dL 0.00-1.30 [facility] [place] Positive Normal [facility] Comment on above: Performed By: #### L 9000.0800 #### [facility] [address] [place], [address] Base excess Calc (Bld) [Moles/Vol] 4 mmol/L High -2 to +2 [facility] Comment on above: Performed By: #### L 9000.0800 #### [facility] [address] [place], [address] Blood Gas Type ART Normal [facility] Comment on above: Performed By: #### L 9000.0800 #### [facility] [address] [place], [address] CO2 [Moles/Vol] 31 mmol/L Normal [facility] Comment on above: Performed By: #### L 9000.0800 #### [facility] [address] [place], [address] FI02 60.0 Normal [facility] Comment on above: Performed By: #### L 9000.0800 #### [facility] [address] [place], [address] HCO3 (Bld) [Moles/Vol] 29.1 mmol/L High 22-26 [facility] Comment on above: Performed By: #### L 9000.0800 #### [facility] [address] [place], [address] Mode BiLevel Normal [facility] Comment on above: Performed By: #### L 9000.0800 #### [facility] [address] [place], [address] O2 Delivery Dev BiPAP Normal [facility] Comment on above: Performed By: #### L 9000.0800 #### [facility] [address] [place], [address] pCO2 50.6 mmHg High 35-45 [facility] Comment on above: Performed By: #### L 9000.0800 #### [facility] [address] [place], [address] PEEP 8 Normal [facility] Comment on above: Performed By: #### L 9000.0800 #### [facility] [address] [place], [address] pH (Bld) 7.37 [pH] Normal 7.35-7.45 [facility] Comment on above: Performed By: #### L 9000.0800 #### [facility] [address] [place], [address] PO2 129 mmHG High 75-100 [facility] Comment on above: Performed By: #### L 9000.0800 #### [facility] [address] [place], [address] RR 12 Normal [facility] Comment on above: Performed By: #### L 9000.0800 #### [facility] [address] [place], [address] SITE R Radial Normal [facility] Comment on above: Performed By: #### L 9000.0800 #### [facility] [address] [place], [address] SO2 99 Normal 95-99 [facility] Comment on above: Performed By: #### L 9000.0800 #### [facility] [address] [place], [address] Blood base excess determinat ionOrdered By: Colt Chappell on 01-14-2025 Base excess Calc (BldV) [Moles/Vol] 4 mmol/L High -2-2 [facility] Blood bicarbonate measuremen tOrdered By: Colt Chappell on 01-14-2025 Blood Gas Bicarbonate Actual 29.1 mmol/L High [facility] HCO3 (Bld) [Moles/Vol] 29.1 mmol/L High - [facility] Blood cultureOrdered By: Mukesh Chappell on 01-14-2025 Bacteria identified Cx Nom (Bld) No growth in 5 days. [facility] CBC W/Diff, Automatedon 04- Absolute Lymph 0.69 X10 3/uL Low 0.83-4.51 [facility] Comment on above: Performed By: #### L 503.6005, L100.0100, M200.1000, L500.4050, L300.4310, L300.3900 ####[facility] [address] [place], [address] Absolute Neut 10.3 X10 3/uL High 2.0-7.7 [facility] Comment on above: Performed By: #### L 503.6005, L100.0100, M200.1000, L500.4050, L300.4310, L300.3900 ####[facility] [address] [place], [address] Basophils/100 WBC (Bld) 0.3 % Normal 0-1 [facility] Comment on above: Performed By: #### L 503.6005, L100.0100, M200.1000, L500.4050, L300.4310, L300.3900 ####[facility] [address] [place], [address] Eosinophils/100 WBC (Bld) 0.8 % Normal 0-5 [facility] Comment on above: Performed By: #### L 503.6005, L100.0100, M200.1000, L500.4050, L300.4310, L300.3900 ####[facility] [address] [place], [address] Erythrocyte distribution width (RBC) [Ratio] 15.3 % High 11.6-14.6 [facility] Comment on above: Performed By: #### L 503.6005, L100.0100, M200.1000, L500.4050, L300.4310, L300.3900 ####[facility] [address] [place], [address] Hematocrit (Bld) [Volume fraction] 37.1 % Normal 37-47 [facility] Comment on above: Performed By: #### L 503.6005, L100.0100, M200.1000, L500.4050, L300.4310, L300.3900 ####[facility] [address] [place], [address] Hemoglobin (Bld) [Mass/Vol] 12.2 g/dL Normal 12.0-15.0 [facility] Comment on above: Performed By: #### L 503.6005, L100.0100, M200.1000, L500.4050, L300.4310, L300.3900 ####[facility] [address] [place], [address] IG% 0.500 Normal 0.0-0.9 [facility] Comment on above: Result Comment: IG% - Immature Granulocytes (promyelocytes, myelocytes and metamyelocytes) > 1% indicates that a LEFT SHIFT is Present. Performed By: #### L 503.6005, L100.0100, M200.1000, L500.4050, L300.4310, L300.3900 ####[facility] [address] [place], [address] Lymphocytes/100 WBC (Bld) 5.9 % Low 19-41 [facility] Comment on above: Performed By: #### L 503.6005, L100.0100, M200.1000, L500.4050, L300.4310, L300.3900 ####[facility] [address] [place], [address] MCH (RBC) [Entitic mass] 28.5 pg Normal 27.0-32.0 [facility] Comment on above: Performed By: #### L 503.6005, L100.0100, M200.1000, L500.4050, L300.4310, L300.3900 ####[facility] [address] [place], [address] MCHC (RBC) [Mass/Vol] 32.9 g/dL Normal 32-36 [facility] Comment on above: Performed By: #### L 503.6005, L100.0100, M200.1000, L500.4050, L300.4310, L300.3900 ####[facility] [address] [place], [address] MCV (RBC) [Entitic vol] 86.7 fL Normal 81-99 [facility] Comment on above: Performed By: #### L 503.6005, L100.0100, M200.1000, L500.4050, L300.4310, L300.3900 ####[facility] [address] [place], [address] Monocytes/100 WBC (Bld) 5.2 % Normal 0-10 [facility] Comment on above: Performed By: #### L 503.6005, L100.0100, M200.1000, L500.4050, L300.4310, L300.3900 ####[facility] [address] [place], [address] Neutrophils/100 WBC (Bld) 87.3 % High 47-70 [facility] Comment on above: Performed By: #### L 503.6005, L100.0100, M200.1000, L500.4050, L300.4310, L300.3900 ####[facility] [address] [place], [address] Nucleated RBC (Bld) [#/Vol] 0 10*3/uL Normal 0-5 [facility] Comment on above: Performed By: #### L 503.6005, L100.0100, M200.1000, L500.4050, L300.4310, L300.3900 ####[facility] [address] [place], [address] Platelet mean volume (Bld) [Entitic vol] 10.5 fL Normal 6.2-12.0 [facility] Comment on above: Performed By: #### L 503.6005, L100.0100, M200.1000, L500.4050, L300.4310, L300.3900 ####[facility] [address] [place], [address] Platelets (Bld) [#/Vol] 259 10*3/uL Normal 150-450 [facility] Comment on above: Performed By: #### L 503.6005, L100.0100, M200.1000, L500.4050, L300.4310, L300.3900 ####[facility] [address] [place], [address] RBC (Bld) [#/Vol] 4.28 10*6/uL Normal 4.2-5.4 [facility] Comment on above: Performed By: #### L 503.6005, L100.0100, M200.1000, L500.4050, L300.4310, L300.3900 ####[facility] [address] [place], [address] RDW SD 48.4 fl High 35.1-43.9 [facility] Comment on above: Performed By: #### L 503.6005, L100.0100, M200.1000, L500.4050, L300.4310, L300.3900 ####[facility] [address] [place], [address] WBC (Bld) [#/Vol] 11.8 10*3/uL High 4.4-11.0 [facility] Comment on above: Performed By: #### L 503.6005, L100.0100, M200.1000, L500.4050, L300.4310, L300.3900 ####[facility] [address] [place], [address] CTA Chest W/WO Contraston CTA Chest W/WO Contrast [facility] Imaging Services [address] [place] [address] CTA Chest W/WO Contrast MR#: [id number] Acct: [id number] Name: SIOBHAN HAAS Rep #: [id number] : 1960 F 64 From: Jon Arce MD PCP: Dr. Louis Penn MD Status: [facility] ER Study: CTA Chest W/WO Contrast Date of Exam: 01/14/25 Exam# [id number] Ordering Dr: Colt Chappell DO PROCEDURE: CTA CHEST W/WO CONTRAST 01/14/2025 REASON FOR EXAM: PULMONARY EMBOLISM TECHNIQUE: CTA chest was performed with IV contrast. Coronal and sagittal reformats and MIP reconstructions were generated. PATIENT PREPARATION: Per protocol CONTRAST: Isovue 370 VOLUME: 100 mL One or more dose reduction techniques were used (e.g., Automated exposure control, adjustment of the mA and/or kV according to patient size, use of iterative reconstruction technique). RADIATION DOSE SUMMARY: CTDlvol: 11.87+ 15.83 mGy DLP: 568.35 mGycm COMPARISON: No prior CT or CTA chest FINDINGS: Exam limited by generalized soft tissue attenuation and mild motion. Additionally, opacification of the pulmonary arterial tree is borderline suboptimal with opacification of the main pulmonary artery to 245 Hounsfield units with progressively decreasing opacification of peripheral branches, limiting sensitivity for peripheral pulmonary embolus. Heart/pericardium: Trace aortic annular calcification. Aorta: Unremarkable. Pulmonary arteries: Normal in caliber. No central or definite pulmonary embolism is identified allowing for the above. Lymph nodes: Unremarkable. Lungs/pleura: Eventrated RIGHT hemidiaphragm. LEFT lower lobe irregular consolidation with hypoenhancement. Mild vaguely nodular airspace disease also present in the LEFT upper lobe and superior segment of the RIGHT lower lobe to a lesser degree. RIGHT basilar airspace disease is compatible with atelectasis/scarring.. Airways: Unremarkable. Chest wall: Unremarkable. Upper abdomen: Mild splenomegaly, 13.3 cm.. Musculoskeletal: Demineralization. Multilevel spondylosis. Spinal stimulator. Mild scoliosis. Severe degenerative changes of the LEFT shoulder. Mild/moderate degenerative changes of the RIGHT shoulder. Suspected old anterior RIGHT rib fracture. CT/CTA Chest W/WO Contrast IMPRESSION: 1. Limited sensitivity for peripheral pulmonary embolism on a technical basis. No central or definite pulmonary embolus identified. 2. Findings are compatible with multifocal LEFT lower lobe predominant pneumonia. Given nodular components, recommend CT chest in 3 months to document resolution. 3. Mild splenomegaly. 4. Additional description as above. Reading Location: [facility] CC: Dr. Colt Chappell DO; Dr. Louis Penn MD Vp Design: Signed Normal [facility] Carbon dioxide, total [Moles /volume] in Central venous bloodOrdered By: Colt Chappell on 01-14-2025 CO2 [Moles/Vol] 24.7 mmol/L 21.0-32.0 [facility] Chest 1 View (Portable)on Chest 1 View (Portable) [facility] Imaging Services [address] [place] [address] Chest 1 View (Portable) MR#: [id number] Acct: [id number] Name: WALDOSIOBHAN HOLLOWAYNE Rep #: [id number] : 1960 F 64 From: Sean cadet MD PCP: Dr. Louis Penn MD Status: REG ER Study: Chest 1 View (Portable) Date of Exam: 01/14/25 Exam# [id number] Ordering Dr: Colt Chappell DO PROCEDURE: CHEST 1 VIEW (PORTABLE) 01/14/2025 REASON FOR EXAM: DYSPNEA TECHNIQUE: Frontal view of the chest. COMPARISON: None FINDINGS: Hardware: EKG electrodes are seen. Heart: Borderline cardiomegaly. Lungs: Mild degree of bibasilar atelectasis with a superimposed vascular congestion and mild CHF. Bones: Degenerative changes are identified within the thoracic spine. Electrodes from a spinal cord stimulator device visualized. Other: Degenerative changes of both shoulder joints. RAD/Chest 1 View (Portable) IMPRESSION: Mild degree of vascular congestion and CHF with bibasilar atelectasis. Reading Location: [facility]--1 CC: Dr. Colt Chappell DO; Dr. Louis Penn MD Vp Design: Signed Normal [facility] Chloride assayOrdered By: Adán Chappell on 01-14-2025 Chloride [Moles/Vol] 102 mmol/L 98-108 [facility] Comprehensive Metabolic Prof ilon 01-14-2025 Albumin [Mass/Vol] 3.8 g/dL Normal 3.4-4.8 [facility] Comment on above: Performed By: #### L 503.6005, L100.0100, M200.1000, L500.4050, L300.4310, L300.3900 ####[facility] [address] [place], [place], [id number] Albumin/Globulin [Mass ratio] 1.2 {ratio} Normal 0.9-2.4 [facility] Comment on above: Performed By: #### L 503.6005, L100.0100, M200.1000, L500.4050, L300.4310, L300.3900 ####[facility] [address] [place], [address] ALK PHOS 141 U/L High 35-104 [facility] Comment on above: Performed By: #### L 503.6005, L100.0100, M200.1000, L500.4050, L300.4310, L300.3900 ####[facility] [address] [place], [address] ALT [Catalytic activity/Vol] 17 U/L Normal <=34 [facility] Comment on above: Performed By: #### L 503.6005, L100.0100, M200.1000, L500.4050, L300.4310, L300.3900 ####[facility] [address] [place], [address] AST [Catalytic activity/Vol] 21 U/L Normal <=31 [facility] Comment on above: Performed By: #### L 503.6005, L100.0100, M200.1000, L500.4050, L300.4310, L300.3900 ####[facility] [address] [place], [address] Bilirubin [Mass/Vol] 0.36 mg/dL Normal 0.00-1.30 [facility] Comment on above: Performed By: #### L 503.6005, L100.0100, M200.1000, L500.4050, L300.4310, L300.3900 ####[facility] [address] [place], [address] BUN/CRE 17.1 RATIO Normal 10-20 [facility] Comment on above: Performed By: #### L 503.6005, L100.0100, M200.1000, L500.4050, L300.4310, L300.3900 ####[facility] [address] [place], [address] Calcium [Mass/Vol] 9.1 mg/dL Normal 7.6-11.0 [facility] Comment on above: Performed By: #### L 503.6005, L100.0100, M200.1000, L500.4050, L300.4310, L300.3900 ####[facility] [address] [place], [address] Chloride [Moles/Vol] 102 mmol/L Normal 98-108 [facility] Comment on above: Performed By: #### L 503.6005, L100.0100, M200.1000, L500.4050, L300.4310, L300.3900 ####[facility] [address] [place], [address] CO2 [Moles/Vol] 24.7 mmol/L Normal 21.0-32.0 [facility] Comment on above: Performed By: #### L 503.6005, L100.0100, M200.1000, L500.4050, L300.4310, L300.3900 ####[facility] [address] [place], [address] Creatinine [Mass/Vol] 0.73 mg/dL Normal 0.70-1.20 [facility] Comment on above: Performed By: #### L 503.6005, L100.0100, M200.1000, L500.4050, L300.4310, L300.3900 ####[facility] [address] [place], [address] ECRCL 111.14 ml/min Normal 50-250 [facility] Comment on above: Performed By: #### L 503.6005, L100.0100, M200.1000, L500.4050, L300.4310, L300.3900 ####[facility] [address] [place], [address] GAP 11 Normal 5-15 [facility] Comment on above: Performed By: #### L 503.6005, L100.0100, M200.1000, L500.4050, L300.4310, L300.3900 ####[facility] [address] [place], [address] GFR/1.73 sq M.predicted among non-blacks MDRD (S/P/Bld) [Vol rate/Area] 91 mL/min/{1.73_m2} Normal >60 [facility] Comment on above: Result Comment: mL/m in/1.73m2 CKD-EPI Creatinine Equation (2020) Performed By: #### L 503.6005, L100.0100, M200.1000, L500.4050, L300.4310, L300.3900 ####[facility] [address] [place], [address] Globulin (S) [Mass/Vol] 3.3 g/dL Normal 2.2-4.2 [facility] Comment on above: Performed By: #### L 503.6005, L100.0100, M200.1000, L500.4050, L300.4310, L300.3900 ####[facility] [address] [place], [address] Glucose [Mass/Vol] 124 mg/dL High 70-99 [facility] Comment on above: Performed By: #### L 503.6005, L100.0100, M200.1000, L500.4050, L300.4310, L300.3900 ####[facility] [address] [place], [address] Potassium [Moles/Vol] 4.7 mmol/L Normal 3.3-5.1 [facility] Comment on above: Performed By: #### L 503.6005, L100.0100, M200.1000, L500.4050, L300.4310, L300.3900 ####[facility] [address] [place], [address] Sodium [Moles/Vol] 138 mmol/L Normal 133-145 [facility] Comment on above: Performed By: #### L 503.6005, L100.0100, M200.1000, L500.4050, L300.4310, L300.3900 ####[facility] [address] [place], [address] T PROT 7.2 g/dL Normal 5.9-8.4 [facility] Comment on above: Performed By: #### L 503.6005, L100.0100, M200.1000, L500.4050, L300.4310, L300.3900 ####[facility] [address] [place], [address] Urea nitrogen [Mass/Vol] 13 mg/dL Normal 4-19 [facility] Comment on above: Performed By: #### L 503.6005, L100.0100, M200.1000, L500.4050, L300.4310, L300.3900 ####[facility] [address] [place], [address] Determination of fraction of inspired oxygenOrdered By: Colt Chappell on 01-14-2025 Blood Gas Oxygen Percent 60.0 [facility] Emergency Department Summary on 01-14-2025 Emergency Department Summary [facility] Medical Records Department [address] [place] [address] Emergency Department Summary 01/14/25 MR#: [id number] Acct: [id number] Name: SIOBHAN HAAS Rep #: [id number] : 1960 64 From: Colt Chappell DO PCP: Dr. Louis Penn MD Status:ADM IN Location: [place] [address] HPI History of Present Illness Chief Complaint: Shortness of Breath Informant: patient, EMS and SNF Narrative Narrative: 64-year-old female presenting to the emergency room with shortness of breath. Patient states that yesterday she felt fine. She states that she slept okay during the night, par for her normal sleep with occasional up-and-down. This morning she went to get into a chair and suddenly felt short of breath with some midsternal chest tightness. She was noted to be bluish hue around the lips and was noted to be hypoxic at 85. She wears BiPAP/CPAP at night and was put back on that. EMS was called. Prehospital EKG does not demonstrate STEMI. Patient denies significant cough. She has a history of prior DVT/PE but is not currently on anticoagulation. She does not recall what she was on before. She is noted by nursing to have a fever of 101 orally. She has not felt feverish yesterday or during the night. Brief review of the patient's chart shows that the patient had pulmonary embolism in 2021. She was on Eliquis. She had respiratory failure at that time but was also complicated by sepsis due to cellulitis. Patient reportedly has had significant red man syndrome to vancomycin. 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 Chronic wound of extremity Anemia Necrotizing fasciitis Below knee amputation Depression Rheumatoid arthritis GERD (gastroesophageal reflux disease) Former smoker BiPAP (biphasic positive airway pressure) dependence Sleep apnea Hypertension Failure of outpatient treatment Anxiety and depression Bronchospasm Asthma exacerbation Family history of diabetes mellitus (DM) Restless leg syndrome Obstructive sleep apnea Morbid obesity Fibromyalgia Reflex sympathetic dystrophy Benign essential HTN Asthma Anxiety Home Medications ???Medication ???Instructions ???Recorded ???Last Taken ???Type albuterol sulfate 90 mcg/actuation 2 puff inhalation Q6H PRN 08/24/22 Rx aerosol inhaler shortness of breath or wheezing #8.5 grams valsartan 320 mg tablet 320 mg PO DAILY heart 05/19/2110/22 History omeprazole 40 mg capsule,delayed 40 mg PO DAILY gerd 06/15/2108/31 History release pramipexole 1.5 mg tablet 3 mg PO QHS RESTLESS LEG SYNDROME 06/15/21 08/30/22 History amitriptyline 100 mg tablet 100 mg PO QHS PHANTOM 08/31/22 History PAIN/DEPRESSION cholecalciferol (vitamin D3) 1,250 1,250 mcg PO MO SUPPLEMENT 08/3108/28/22 History mcg (50,000 unit) capsule metoprolol succinate 50 mg 50 mg PO DAILY blood pressure 10/01 03/23 Unknown History tablet,extended release 24 hr montelukast 10 mg tablet 10 mg PO DAILY asthma 10/16/22 Unk nown History albuterol sulfate 2.5 mg/3 mL 1.25 mg inhalation Q4H PRN 3 Unknown History (0.083 %) solution for nebulization sob/wheezing atorvastatin 10 mg tablet 10 mg PO QHS cholesterol 07/21/23 Unknown History docusate sodium 100 mg capsule 100 mg PO DAILY constipation 07/21 Unknown History (Colace) fluticasone 250 mcg-salmeterol 50 1 inh inhalation BID copd 3 Unknown History mcg/dose blistr powdr for inhalation (Advair Diskus) fluticasone propionate 50 1 spray intranasal DAILY allergies 07/21/23 Unknown History mcg/actuation nasal spray,suspension (Flonase Allergy Relief) gabapentin 300 mg capsule 300 mg PO DAILY phantom pain 07/21 Unknown History loratadine 10 mg tablet (Allergy 10 mg PO DAILY allergies 07/21/23 Unknown History Relief (loratadine)) melatonin 5 mg tablet 5 mg PO QHS sleep 07/21/23 Unknown History multivitamin (Daily Multi-Vitamin 1 tab PO DAILY supplement 3 Unknown History tablet) metformin 850 mg tablet 850 mg PO BID DIABETES 05/06/24 Un known History sertraline 50 mg tablet 50 mg PO DAILY DEPRESSION 05/06/24 Unknown History acetaminophen 500 mg tablet 1,000 mg PO Q8H PRN pain 05/08/24 Unknown History (Acetaminophen Extra Strength) hydroxyzine pamoate 25 mg capsule 25 mg PO Q6H PRN anxiety 05/08/24 Unknown History (V (more content not included)... Normal [facility] Eosinophil percentageOrdered By: Colt Chappell on 01-14-2025 Eosinophils/100 WBC (Bld) 0.8 % 0-5 [facility] Epithelial cells.squamous LM Ql (Urine sed)Ordered By: Colt Chappell on 01-14-2025 Epithelial cells.squamous LM.HPF (Urine sed) [#/Area] 0 /[HPF] 5-10 [facility] Erythrocyte distribution wid th (RBC) [Ratio]Ordered By: Colt Chappell on 01-14-2025 Erythrocyte distribution width (RBC) [Entitic vol] 48.4 fL High 35.1-43.9 [facility] Erythrocyte distribution wid th ratioOrdered By: Colt Chappell on 01-14-2025 Erythrocyte distribution width (RBC) [Ratio] 15.3 % High 11.6-14.6 [facility] Estimation of creatinine jessica aranceOrdered By: Colt Chappell on 01-14-2025 Estimated Creatinine Clearance Calc 111.14 ml/min 50-250 [facility] Fine Granular Casts LM.LPF ( Urine sed) [#/Area]Ordered By: Colt Chappell on 01-14-2025 Urine Fine Granular Casts 0-5 SEEN /lpf 0-5 [facility] GFR/1.73 sq M.predicted beth g non-blacks MDRD (S/P/Bld) [Vol rate/Area]Ordered By: Colt Chappell on 01-14-2025 Estimated GFR (MDRD) Non-Af Amer 91 >60 [facility] Comment on above: mL/min/1.73m2 CKD-EP I Creatinine Equation (2020) Glucose Ql (U)Ordered By: Adán Chappell on 01-14-2025 Urine Glucose (UA) Normal mg/dl Normal [facility] Gram stainOrdered By: Betty Trinidad on 01-14-2025 Microscopic observation Gram stain Nom (Unsp spec) [facility] H AND P Exam - Hospitaliston 01-14-2025 H&P Exam - Hospitalist [facility] Medical Records Department [address] [place] [address] H P Exam - Hospitalist 01/14/25 1216 MR#: [id number] Acct: [id number] Name: SIOBHAN HAAS Rep #: [id number] : 1960 64 From: Rigo Trinidad MD PCP: Dr. Louis Penn MD Status:ADM IN Location: [facility] ETS165-3 HPI - General General Date of Admission: 01/14/25 HPI Narrative SIOBHAN HAAS, is a 64 F who presents to the hospital with the increased shortness of breath and found to be in respiratory failure necessitating BiPAP. She said that she felt fine last evening and then this morning she was getting into a chair where she felt suddenly short of breath. She was found to have a fever of 101, but denies any chills and no sick contacts though she does reside at the [facility] in [place]. Initially there is concern for possible PE so CTA of the chest was obtained which demonstrated left lower lobe pneumonia and no definite PE. Denies any chest pain. She does wear BiPAP at baseline but only at night and today she was hypoxic and at the longterm and was transported to the ER. 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 Chronic wound of extremity Anemia Necrotizing fasciitis Below knee amputation Depression Rheumatoid arthritis GERD (gastroesophageal reflux disease) Former smoker BiPAP (biphasic positive airway pressure) dependence Sleep apnea Hypertension Failure of outpatient treatment Anxiety and depression Bronchospasm Asthma exacerbation Family history of diabetes mellitus (DM) Restless leg syndrome Obstructive sleep apnea Morbid obesity Fibromyalgia Reflex sympathetic dystrophy Benign essential HTN Asthma Anxiety Home Medications ???Medication ???Instructions ???Recorded ???Last Taken ???Type albuterol sulfate 90 mcg/actuation 2 puff inhalation Q6H PRN 08/24/22 Rx aerosol inhaler shortness of breath or wheezing #8.5 grams valsartan 320 mg tablet 320 mg PO DAILY heart 05/19/2110/22 History omeprazole 40 mg capsule,delayed 40 mg PO DAILY gerd 06/15/2108/31 History release pramipexole 1.5 mg tablet 3 mg PO QHS RESTLESS LEG SYNDROME 06/15/21 08/30/22 History amitriptyline 100 mg tablet 100 mg PO QHS PHANTOM 08/31/22 History PAIN/DEPRESSION cholecalciferol (vitamin D3) 1,250 1,250 mcg PO MO SUPPLEMENT 08/3108/28/22 History mcg (50,000 unit) capsule metoprolol succinate 50 mg 50 mg PO DAILY blood pressure 10/01 03/23 Unknown History tablet,extended release 24 hr montelukast 10 mg tablet 10 mg PO DAILY asthma 10/16/22 Unk nown History albuterol sulfate 2.5 mg/3 mL 1.25 mg inhalation Q4H PRN 3 Unknown History (0.083 %) solution for nebulization sob/wheezing atorvastatin 10 mg tablet 10 mg PO QHS cholesterol 07/21/23 Unknown History docusate sodium 100 mg capsule 100 mg PO DAILY constipation 07/21 Unknown History (Colace) fluticasone 250 mcg-salmeterol 50 1 inh inhalation BID copd 3 Unknown History mcg/dose blistr powdr for inhalation (Advair Diskus) fluticasone propionate 50 1 spray intranasal DAILY allergies 07/21/23 Unknown History mcg/actuation nasal spray,suspension (Flonase Allergy Relief) gabapentin 300 mg capsule 300 mg PO DAILY phantom pain 07/21 Unknown History loratadine 10 mg tablet (Allergy 10 mg PO DAILY allergies 07/21/23 Unknown History Relief (loratadine)) melatonin 5 mg tablet 5 mg PO QHS sleep 07/21/23 Unknown History multivitamin (Daily Multi-Vitamin 1 tab PO DAILY supplement 3 Unknown History tablet) metformin 850 mg tablet 850 mg PO BID DIABETES 05/06/24 Un known History sertraline 50 mg tablet 50 mg PO DAILY DEPRESSION 05/06/24 Unknown History acetaminophen 500 mg tablet 1,000 mg PO Q8H PRN pain 05/08/24 Unknown History (Acetaminophen Extra Strength) hydroxyzine pamoate 25 mg capsule 25 mg PO Q6H PRN anxiety 05/08/24 Unknown History (Vistaril) bisacodyl 10 mg rectal suppository 10 mg MO QHS PRN constipation Unknown History buprenorphine HCl 300 mcg buccal 300 mcg buccal BID 01/14/25 Unknow n History film (Belbuca) diphenhydramine HCl 25 mg tablet 25 mg PO Q4H PRN allergic reaction 01/14/25 Unknown History (Benadryl Allergy) gabapentin 300 mg capsule 600 mg PO QHS FOR PHANTOM PAIN Unknown History guaifenesin 10 (more content not included)... Normal [facility] Hematocrit Auto (Bld) [Volum e fraction]Ordered By: Colt Chappell on 01-14-2025 Hematocrit (Bld) [Volume fraction] 37.1 % 37-47 [facility] Hemoglobin measurementOrdere d By: Colt Chappell on 01-14-2025 Hemoglobin (Bld) [Mass/Vol] 12.2 g/dL 12.0-15.0 [facility] Hyaline casts LM.LPF (Urine sed) [#/Area]Ordered By: Colt Chappell on 01-14-2025 Hyaline casts (Urine sed) [#/Area] 5 /[LPF] 0-5 [facility] Hyaline casts LM Ql (Urine sed) 5-10 SEEN /lpf 0-5 [facility] Immature granulocytes/100 WB C Auto (Bld)Ordered By: Colt Chappell on 01-14-2025 Immature granulocytes/100 WBC (Bld) 0.500 % 0.0-0.9 [facility] Comment on above: IG% - Immature Granu locytes (promyelocytes, myelocytes and metamyelocytes) > 1% indicates that a LEFT SHIFT is Present. Influenza virus A and B and SARS-CoV-2 (COVID-19) and Respiratory syncytial virus RNAOrdered By: Colt Chappell on 01-14-2025 SARS-CoV-2 (COVID-19) RNA NICHOLE+probe Ql (Unsp spec) [facility] International normalized rat io (INR) calculationOrdered By: Colt Chappell on 01-14-2025 INR Coag (Bld) [Relative time] 1.0 {INR} [facility] Ketones Test strip Ql (U)Ord ered By: Colt Chappell on 01-14-2025 Ketones Ql (U) Negative Negative [facility] L. pneumophila Ag Ql (U)Orde red By: Rigo Trinidad on 01-14-2025 Legionella Antigen [facility] L499.0042on 01-14-2025 Trop T High Sen 7 ng/L Normal <=14 [facility] Comment on above: Performed By: #### L 499.0042 #### [facility] [address] [place], [address] Trop T High Sen Normal <=14 [facility] Comment on above: Result Comment: OK T O CANCEL BY RN STARTING OVER Performed By: #### L 499.0042 #### [facility] [address] [place], [address] L499.0043on 01-14-2025 Trop T High Sen < 6 Normal <=14 [facility] Comment on above: Performed By: #### L 499.0043 #### [facility] [address] [place], [address] Trop T High Sen Normal <=14 [facility] Comment on above: Result Comment: OK T O CANCEL BY RN STARTING OVER Performed By: #### L 499.0042 #### [facility] [address] [place], [address] L501.4021on 01-14-2025 Trop T High Sen 8 ng/L Normal <=14 [facility] Comment on above: Performed By: #### L 501.4021 #### [facility] [address] [place], [address] Trop T High Sen 8 ng/L Normal <=14 [facility] Comment on above: Performed By: #### L 501.4021 ####[facility] [address] [place], [address] L503.7505on 01-14-2025 Natriuretic peptide B (Bld) [Mass/Vol] 237 pg/mL Normal <=900 [facility] Comment on above: Result Comment: Hear t Failure Unlikely: < 300 pg/mL Heart Failure Likely < 50 Years: > 450 pg/mL 50-75 Years: > 900 pg/mL >75 Years: > 1800 pg/mL Performed By: #### L 501.080 #### [facility] [address] [place], [place], [id number] Laboratory - Chemistry and C hemistry - challengeOrdered By: Colt Chappell on 01-14-2025 AST [Catalytic activity/Vol] 21 U/L <32 [facility] Lactic Acidon 01-14-2025 Lactate [Moles/Vol] 1.3 mmol/L Normal 0.0-2.0 [facility] Comment on above: Order Comment: Y Performed By: #### L 503.6005, L100.0100, M200.1000, L500.4050, L300.4310, L300.3900 ####[facility] [address] [place], [place], [id number] Lactic acid measurementOrder ed By: Colt Chappell on 01-14-2025 Lactate [Moles/Vol] 1.3 mmol/L 0.0-2.0 [facility] Legionella Antigen Urineon 0 01-14-2025 LEGU URINE, RANDOM Legionella Antigen result interpretation: L pneumo Ag Ur Ql Negative Presumptive negative for Legionella pneumophila serogroup 1 antigen in urine, suggesting no recent or current infection. Legionella Ag, Urine Negative (See interpretation below) Normal [facility] Comment on above: Performed By: #### M 300.4600, M300.4500 ####[facility] [address] [place], [place], [id number] Lymphocytes Auto (Unsp spec) [#/Vol]Ordered By: Colt Chappell on 01-14-2025 Lymphocytes (Bld) [#/Vol] 0.69 10*3/uL Low 0.83-4.51 [facility] Lymphocytes/100 WBC Auto (Un sp spec)Ordered By: Colt Chappell on 01-14-2025 Lymphocytes/100 WBC (Bld) 5.9 % Low 19-41 [facility] M100.678on 01-14-2025 M100.678 Pending SARS-CoV-2 (COVID 19) Negative INFLUENZA A Negative INFLUENZA B Negative RSV PCR Negative Normal [facility] Comment on above: Performed By: #### M 10067 ####[facility] [address] [place], [address] MCV (mean corpuscular volume ) determinationOrdered By: Colt Chappell on 01-14-2025 MCV (RBC) [Entitic vol] 86.7 fL 81-99 [facility] Mean corpuscular hemoglobin (MCH) determinationOrdered By: Colt Chappell on 01-14-2025 MCH (RBC) [Entitic mass] 28.5 pg 27.0-32.0 [facility] Mean corpuscular hemoglobin concentration (MCHC) determinationOrdered By: Colt Chappell on 01-14-2025 MCHC (RBC) [Mass/Vol] 32.9 g/dL 32-36 [facility] Mean platelet volume determi nationOrdered By: Colt Chappell on 01-14-2025 Platelet mean volume (Bld) [Entitic vol] 10.5 fL 6.2-12.0 [facility] Measurement, pHOrdered By: Nette Chappell on 01-14-2025 pH (Unsp spec) 7.37 [pH] 7.35-7.45 [facility] Microbial respiratory cultur eOrdered By: Rigo Trinidad on 01-14-2025 Microorganism identified Cx Nom (Unsp spec) [facility] Microorganism identified Cx Nom (Unsp spec)Ordered By: Rigo Trinidad on 01-14-2025 Respiratory Culture [facility] Microscopic analysis of urin e for red blood cells (RBC)Ordered By: Colt Chappell on 01-14-2025 Microscopic analysis of urine for red blood cells (RBC) 0-5 SEEN /hpf 0-5 [facility] Urine RBC 0-5 SEEN /hpf 0-5 [facility] Monocyte percentageOrdered B y: Colt Chappell on 01-14-2025 Monocytes/100 WBC (Bld) 5.2 % 0-10 [facility] Mucus LM Ql (Urine sed)Order ed By: Colt Chappell on 01-14-2025 Mucus Ql (Urine sed) 1+ /hpf [facility] Natriuretic peptide.B prohor clarence N-Terminal [Mass/Vol]Ordered By: Colt Chappell on 01-14-2025 Natriuretic peptide B (Bld) [Mass/Vol] 237 pg/mL <900 [facility] Comment on above: Heart Failure Unlike ly: < 300 pg/mLHeart Failure Likely< 50 Years: > 450 pg/mL50-75 Years: > 900 pg/mL>75 Years: > 1800 pg/mL Natriuretic peptide.B prohor clarence N-Terminal [Mass/volume] in Serum or PlasmaOrdered By: Colt Chappell on 01-14-2025 Natriuretic peptide.B prohormone N-Terminal [Mass/Vol] 237 pg/mL <900 [facility] Comment on above: Heart Failure Unlike ly: < 300 pg/mLHeart Failure Likely< 50 Years: > 450 pg/mL50-75 Years: > 900 pg/mL>75 Years: > 1800 pg/mL Neutrophil percentageOrdered By: Colt Chappell on 01-14-2025 Neutrophils/100 WBC (Bld) 87.3 % High 47-70 [facility] Nitrite Test strip Ql (U)Ord ered By: Colt Chappell on 01-14-2025 Nitrite Ql (U) Negative Negative [facility] No Panel InformationOrdered By: Colt Chappell on 01-14-2025 Bedside Blood Gas PEEP 8 [facility] Blood Gas Respiration Rate 12 [facility] Blood Gas Sample Site R Radial [facility] Blood Gas Specimen Type ART [facility] Blood Gas Vent [facility] BiPAP [facility] Nucleated red blood cell per centageOrdered By: Colt Chappell on 01-14-2025 Nucleated RBC/100 WBC (Bld) [Ratio] 0 % 0-5 [facility] Oxygen saturation measuremen tOrdered By: Colt Chappell on 01-14-2025 Blood Gas Oxygen Saturation 99 % 95-99 [facility] Partial Thromboplast Timeon 01-14-2025 aPTT Coag (Bld) [Time] 26.3 s Normal 24.1-36.2 [facility] Comment on above: Performed By: #### L 503.6005, L100.0100, M200.1000, L500.4050, L300.4310, L300.3900 ####[facility] [address] [place], [place], [id number] Partial pressure of carbon d ioxide measurementOrdered By: Colt Chappell on 01-14-2025 Arterial Blood Partial Pressure CO2 50.6 mmHg High 35-45 [facility] Partial pressure of oxygen m easurementOrdered By: Colt Chappell on 01-14-2025 Arterial Blood Partial Pressure O2 129 mmHG High 75-100 [facility] Platelet countOrdered By: Adán Chappell on 01-14-2025 Platelets (Bld) [#/Vol] 259 10*3/uL 150-450 [facility] Potassium (Unsp spec) [Mass/ Vol]Ordered By: Colt Chappell on 01-14-2025 Potassium [Moles/Vol] 4.7 mmol/L 3.3-5.1 [facility] Protein Test strip Ql (U)Ord ered By: Colt Chappell on 01-14-2025 Protein Ql (U) 15 mg/dl High Negative [facility] Prothrombin Time w/INRon INR Coag (PPP) [Relative time] 1.0 {INR} Normal [facility] Comment on above: Performed By: #### L 503.6005, L100.0100, M200.1000, L500.4050, L300.4310, L300.3900 ####[facility] [id number] [place], [address] PT Coag (PPP) [Time] 13.7 s Normal 11.7-14.9 [facility] Comment on above: Performed By: #### L 503.6005, L100.0100, M200.1000, L500.4050, L300.4310, L300.3900 ####[facility] [address] [place], [address] Prothrombin timeOrdered By: Colt Chappell on 01-14-2025 PT Coag (PPP) [Time] 13.7 s 11.7-14.9 [facility] RBC Auto (Bld) [#/Vol]Ordere d By: Colt Chappell on 01-14-2025 RBC (Bld) [#/Vol] 4.28 10*6/uL 4.2-5.4 [facility] Serum creatinine measurement (mass/volume)Ordered By: Colt Chappell on 01-14-2025 Creatinine [Mass/Vol] 0.73 mg/dL 0.70-1.20 [facility] Serum globulin measurementOr dered By: Colt Chappell on 01-14-2025 Globulin (S) [Mass/Vol] 3.3 g/dL 2.2-4.2 [facility] Serum glucose measurement (m ass/volume)Ordered By: Colt Chappell on 01-14-2025 Glucose [Mass/Vol] 124 mg/dL High 70-99 [facility] Serum or plasma alanine cabral otransferase (ALT) measurementOrdered By: Colt Chappell on 01-14-2025 ALT [Catalytic activity/Vol] 17 U/L <35 [facility] Serum or plasma albumin merissa urement (mass/volume)Ordered By: Colt Chappell on 01-14-2025 Albumin [Mass/Vol] 3.8 g/dL 3.4-4.8 [facility] Serum or plasma albumin/glob ulin mass ratioOrdered By: Colt Chappell on 01-14-2025 Albumin/Globulin [Mass ratio] 1.2 {ratio} 0.9-2.4 [facility] Serum or plasma alkaline joseph sphatase measurementOrdered By: Colt Chappell on 01-14-2025 ALP [Catalytic activity/Vol] 141 U/L High 35-104 [facility] Serum or plasma calcium merissa urement (mass/volume)Ordered By: Colt Chappell on 01-14-2025 Calcium [Mass/Vol] 9.1 mg/dL 7.6-11.0 [facility] Serum or plasma urea nitroge n measurement (mass/volume)Ordered By: Colt Chappell on 01-14-2025 Urea nitrogen [Mass/Vol] 13 mg/dL 4-19 [facility] Sodium levelOrdered By: Chino Chappell on 01-14-2025 Sodium [Moles/Vol] 138 mmol/L 133-145 [facility] Squamous epithelial cells de tection in urine sediment by light microscopyOrdered By: Colt Chappell on 01-14-2025 Epithelial cells.squamous LM Ql (Urine sed) 0-5 SEEN /hpf 5-10 [facility] Strep pneumoniae Antig(UR,CS F)on 01-14-2025 STPAG URINE INTERPRETATION Strep pneumoniae Antig(UR,CSF) Strep pneumoniae Antig(UR,CSF) Negative Urine Presumptive negative for pneumococcal pneumonia, suggesting no current or recent pneumococcal infection. Infection due to S pneumoniae cannot be ruled out since the antigen present in the sample may be below the detection limit of the test. Strep pneumo Test Negative URINE (See interpretation below) Normal [facility] Comment on above: Performed By: #### M 300.4600, M300.4500 ####[facility] [address] [place], [address] Streptococcus pneumoniae ant igen assayOrdered By: Rigo Trinidad on 01-14-2025 Streptococcus pneumoniae Antigen (M [facility] Total carbon dioxide measure mentOrdered By: Colt Chappell on 01-14-2025 Blood Gas Total CO2 31 mmol/L [facility] CO2 [Moles/Vol] 31 mmol/L [facility] Total proteinOrdered By: Mukesh Chappell on 01-14-2025 Protein [Mass/Vol] 7.2 g/dL 5.9-8.4 [facility] Troponin T.cardiac High sens itivity method [Mass/Vol]Ordered By: Rigo Trinidad on 01-14-2025 Troponin T High Sensitivity 4 Hour < 6 ng/L <14 [facility] Troponin T High Sensitivity 2 Hour 7 ng/L <14 [facility] Troponin T High Sensitivity 8 ng/L <14 [facility] Troponin T.cardiac High sens itivity method [Mass/Vol]Ordered By: Colt Chappell on 01-14-2025 Troponin T High Sensitivity 8 ng/L <14 [facility] Troponin T.cardiac [Mass/vol ume] in Serum or Plasma by High sensitivity methodOrdered By: Rigo Trinidad on 01-14-2025 Troponin T.cardiac High sensitivity method [Mass/Vol] < 6 ng/L <14 [facility] Troponin T.cardiac High sensitivity method [Mass/Vol] 7 ng/L <14 [facility] Troponin T.cardiac High sensitivity method [Mass/Vol] 8 ng/L <14 [facility] Urinalysis, Completeon 01-14 CAST,FINE GRAN 0-5 SEEN Normal 0-5 [facility] Comment on above: Order Comment: ARYAN TER SPECIMEN Performed By: #### L 400.0001, M1.2199 ####[facility] [address] [place], [address] CAST,HYALINE 5-10 SEEN Normal 0-5 [facility] Comment on above: Order Comment: ARYAN TER SPECIMEN Performed By: #### L 400.0001, ####[facility] [id number] [place], [address] EPI,SQUAMOUS 0-5 SEEN Normal 5-10 [facility] Comment on above: Order Comment: ARYAN TER SPECIMEN Performed By: #### L 400.0001, 0 ####[facility] [address] [place], [address] Mucus Ql (Urine sed) 1+ /hpf Normal [facility] Comment on above: Order Comment: ARYAN TER SPECIMEN Performed By: #### L 400.0001, M1 ####[facility] [address] [place], [address] RBC 0-5 SEEN Normal 0-5 [facility] Comment on above: Order Comment: ARYAN TER SPECIMEN Performed By: #### L 400.0001, M1 ####[facility] [address] [place], [address] BACTERIA 0 SEEN Normal None Seen [facility] Comment on above: Order Comment: ARYAN TER SPECIMEN Performed By: #### L 400.0001, M100.2200 ####[facility] [address] [place], [address] WBC 0 SEEN Normal 0-5 [facility] Comment on above: Order Comment: ARYAN TER SPECIMEN Performed By: #### L 400.0001, M100.2200 ####[facility] [address] [place], [address] Urine Legionella pneumophila antigen detectionOrdered By: Rigo Trinidad on 01-14-2025 L. pneumophila Ag Ql (U) [facility] Urine blood detectionOrdered By: Colt Chappell on 01-14-2025 Urine Occult Blood Negative Negative [facility] Urine clarityOrdered By: Mukesh Chappell on 01-14-2025 Clarity (U) Clear Clear [facility] Urine color determinationOrd ered By: Colt Chappell on 01-14-2025 Color (U) Yellow Yellow [facility] Urine cultureOrdered By: Mukesh Chappell on 01-14-2025 Bacteria identified Cx Nom (U) Culture exhibits no growth. [facility] Urine glucose detectionOrder ed By: Colt Chappell on 01-14-2025 Glucose Ql (U) Normal mg/dl Normal [facility] Urine leukocyte esterase det ection by dipstickOrdered By: Colt Chappell on 01-14-2025 Leukocyte esterase Test strip Ql (U) Negative Negative [facility] Urine pHOrdered By: Colt rice on 01-14-2025 pH (U) 5.0 [pH] 5.0 - 8.0 [facility] Urine sediment bacteria coun t by microscopy (number/high power field)Ordered By: Colt Chappell on 01-14-2025 Bacteria LM.HPF (Urine sed) [#/Area] 0 /[HPF] None Seen [facility] Urine sediment fine granular cast count by microscopy (number/low power field)Ordered By: Colt Chappell on 01-14-2025 Fine Granular Casts LM.LPF (Urine sed) [#/Area] 0-5 SEEN /lpf 0-5 [facility] Urine specific gravity measu rementOrdered By: Colt Chappell on 01-14-2025 Specific gravity (U) [Rel density] 1.020 1.002-1.03 0 [facility] Urine urobilinogen measureme ntOrdered By: Colt Chappell on 01-14-2025 Urobilinogen Ql (U) Normal mg/dl Normal [facility] Urobilinogen Ql (U)Ordered B y: Colt Chappell on 01-14-2025 Urine Urobilinogen Normal mg/dl Normal [facility] White blood cell (WBC) count Ordered By: Colt Chappell on 01-14-2025 WBC (Bld) [#/Vol] 11.8 10*3/uL High 4.4-11.0 [facility] White blood cell countOrdere d By: Colt Chappell on 01-14-2025 Urine WBC 0 SEEN /hpf 0-5 [facility] White blood cell count 0 SEEN /hpf 0-5 [facility] aPTT Coag (PPP) [Time]Ordere d By: Colt Chappell on 01-14-2025 aPTT Coag (Bld) [Time] 26.3 s 24.1-36.2 [facility] pH (Unsp spec)Ordered By: Adán Chappell on 01-14-2025 Blood Gas pH 7.37 7.35-7.45 [facility] Surgery Visit Reporton 12-29 Surgery Visit Report [facility] [address] [place] [address]. [address] [place] [address] OFFICE VISIT Date of Service: 12/29/24 MR#: [id number] Acct: [id number] Name: SIOBHAN HAAS Rep #: [id number] : 1960 Provider: Dr. Kayla moss MD Age/Sex: 64/F Location: [facility] Status: Signed Intake Vital Signs 11/19/24 12:13 Height 5 ft 6 in Intake Visit Reasons: EXCISION OF LIPOMA- THIGH Chief Complaint: excision of lipoma-thigh Is patient in pain?: Yes (chronic pain) Allergies losartan (From Cozaar) Allergy (Mild, Verified 12/29/24 12:52) Rash cefepime Allergy (Unknown, Verified 12/29/24 12:52) NEEDS FOLLOW-UP clonazepam Allergy (Unknown, Verified 12/29/24 12:52) NEEDS FOLLOW-UP hydromorphone Allergy (Unknown, Verified 12/29/24 12:52) NEEDS FOLLOW-UP ketamine Allergy (Unknown, Verified 12/29/24 12:52) NEEDS FOLLOW-UP lisinopril Allergy (Unknown, Verified 12/29/24 12:52) NEEDS FOLLOW-UP vancomycin Allergy (Verified 12/29/24 12:52) Rash amlodipine Adverse Reaction (Verified 12/29/24 12:52) Swelling Medications ???Medication ???Instructions ???Recorded ???Confirmed ???Type potassium chloride 20 mEq 20 meq PO DAILY supplement 9 12/29/24 History tablet,extended release(part/cryst) albuterol sulfate 90 mcg/actuation 2 puff inhalation Q6H PRN 12/29/24 Rx aerosol inhaler shortness of breath or wheezing #8.5 grams valsartan 320 mg tablet 320 mg PO DAILY heart 05/19/21 History omeprazole 40 mg capsule,delayed 40 mg PO DAILY gerd 06/15/2112/29 History release pramipexole 1.5 mg tablet 3 mg PO QHS rls 06/15/21 12/29/24 History amitriptyline 100 mg tablet 100 mg PO QHS PAIN AND SLEEP 08/3112/29/24 History cholecalciferol (vitamin D3) 1,250 1,250 mcg PO MO SUPPLEMENT 08/3112/29/24 History mcg (50,000 unit) capsule metoprolol succinate 50 mg 50 mg PO DAILY blood pressure 10/0112/29/24 History tablet,extended release 24 hr montelukast 10 mg tablet 10 mg PO DAILY asthma 10/16/22 History albuterol sulfate 2.5 mg/3 mL 1.25 mg inhalation Q4H PRN 3 12/29/24 History (0.083 %) solution for nebulization sob/wheezing atorvastatin 10 mg tablet 10 mg PO QHS cholesterol 07/21/23 12/29/24 History docusate sodium 100 mg capsule 100 mg PO DAILY constipation 07/2112/29/24 History (Colace) fluticasone 250 mcg-salmeterol 50 1 inh inhalation BID copd 3 12/29/24 History mcg/dose blistr powdr for inhalation (Advair Diskus) fluticasone propionate 50 1 spray intranasal DAILY allergies 07/21/23 12/29/24 History mcg/actuation nasal spray,suspension (Flonase Allergy Relief) gabapentin 300 mg capsule 300 mg PO BID phantom pain 3 12/29/24 History loratadine 10 mg tablet (Allergy 10 mg PO DAILY allergies 07/21/23 12/29/24 History Relief (loratadine)) melatonin 5 mg tablet 5 mg PO QHS sleep 07/21/23 5 History multivitamin (Daily Multi-Vitamin 1 tab PO DAILY supplement 3 12/29/24 History tablet) buprenorphine HCl 150 mcg buccal 150 mcg buccal Q12H 05/06/2412/29 History film metformin 850 mg tablet 850 mg PO DAILY 05/06/24 12/29/24 History sertraline 50 mg tablet 50 mg PO DAILY 05/06/24 12/29/24 H istory acetaminophen 500 mg tablet 1,000 mg PO Q8H PRN PRN pain 05/0812/29/24 History (Acetaminophen Extra Strength) hydroxyzine pamoate 25 mg capsule 25 mg PO Q6H PRN anxiety 05/08/24 12/29/24 History (Vistaril) Have you fallen in the past year?: No PFSH Medical History Bruising History of steroid therapy Diabetes Uses wheelchair Arthritis DVT (deep venous thrombosis) Easy bruising Migraine headache Gastric reflux COPD (chronic obstructive pulmonary disease) Shortness of breath on exertion Below-knee amputation of left lower 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 Pulmonary embolism Current use of mcfp anticoagulation Chronic wound of extremity Anemia Necrotizing fasciitis Below knee amputation Depression Rheumatoid arthritis GERD (gastroesophageal reflux disease) Former smoker BiPAP (biphasic positive airway pressure) dependence Sleep apnea Hypertension Failure of outpatient treatment Anxiety and depression Bronchospasm Asthma exacerbation Family history of diabetes mellitus (DM) Restless leg syndrome Obstructive sleep apnea Morbid obesity Fibromyalgia Reflex sympathetic dystrophy Benign essential HTN Asthma Anxiety Surgical History (Updated 12/19/24 @ 13:19 by Shen Cisse) Hx of BKA Hx of breast reduction, elective Chronic knee pain after total replacement of left knee joint H/O foot surgery His (more content not included)... Normal [facility] Surgery Visit Reporton 12-19 Surgery Visit Report [facility] [address] [place] [address] OFFICE VISIT Date of Service: 12/19/24 MR#: [id number] Acct: [id number] Name: SIOBHAN HAAS Rep #: [id number] : 1960 Provider: Dr. Kayla moss MD Age/Sex: 64/F Location: [facility] Status: Signed Intake Vital Signs 11/19/24 12:13 12/19/24 13:20 Height 5 ft 6 in BP 136/80 H Blood Pressure Location Lt radial Position Sitting Respiration 18 Pulse 82 Pulse Source Monitor Pulse Oximetry (%) 90 Oxygen Delivery Method room air Intake Visit Reasons: LIPOMA ON THIGH Chief Complaint: lipoma on thigh Allergies losartan (From Cozaar) Allergy (Mild, Verified 12/19/24 13:21) Rash cefepime Allergy (Unknown, Verified 12/19/24 13:21) NEEDS FOLLOW-UP clonazepam Allergy (Unknown, Verified 12/19/24 13:21) NEEDS FOLLOW-UP hydromorphone Allergy (Unknown, Verified 12/19/24 13:21) NEEDS FOLLOW-UP ketamine Allergy (Unknown, Verified 12/19/24 13:21) NEEDS FOLLOW-UP lisinopril Allergy (Unknown, Verified 12/19/24 13:21) NEEDS FOLLOW-UP vancomycin Allergy (Verified 12/19/24 13:21) Rash amlodipine Adverse Reaction (Verified 12/19/24 13:21) Swelling Medications ???Medication ???Instructions ???Recorded ???Confirmed ???Type potassium chloride 20 mEq 20 meq PO DAILY supplement 9 12/19/24 History tablet,extended release(part/cryst) albuterol sulfate 90 mcg/actuation 2 puff inhalation Q6H PRN 12/19/24 Rx aerosol inhaler shortness of breath or wheezing #8.5 grams valsartan 320 mg tablet 320 mg PO DAILY heart 05/19/21 History omeprazole 40 mg capsule,delayed 40 mg PO DAILY gerd 06/15/2112/19 History release pramipexole 1.5 mg tablet 3 mg PO QHS rls 06/15/21 12/19/24 History amitriptyline 100 mg tablet 100 mg PO QHS PAIN AND SLEEP 08/3112/19/24 History cholecalciferol (vitamin D3) 1,250 1,250 mcg PO MO SUPPLEMENT 08/3112/19/24 History mcg (50,000 unit) capsule metoprolol succinate 50 mg 50 mg PO DAILY blood pressure 10/0112/19/24 History tablet,extended release 24 hr montelukast 10 mg tablet 10 mg PO DAILY asthma 10/16/22 History albuterol sulfate 2.5 mg/3 mL 1.25 mg inhalation Q4H PRN 12/19/24 History (0.083 %) solution for nebulization sob/wheezing atorvastatin 10 mg tablet 10 mg PO QHS cholesterol 07/21/23 12/19/24 History docusate sodium 100 mg capsule 100 mg PO DAILY constipation 07/2112/19/24 History (Colace) fluticasone 250 mcg-salmeterol 50 1 inh inhalation BID copd 3 12/19/24 History mcg/dose blistr powdr for inhalation (Advair Diskus) fluticasone propionate 50 1 spray intranasal DAILY allergies 07/21/23 12/19/24 History mcg/actuation nasal spray,suspension (Flonase Allergy Relief) gabapentin 300 mg capsule 300 mg PO BID phantom pain 3 12/19/24 History loratadine 10 mg tablet (Allergy 10 mg PO DAILY allergies 07/21/23 12/19/24 History Relief (loratadine)) melatonin 5 mg tablet 5 mg PO QHS sleep 07/21/23 5 History multivitamin (Daily Multi-Vitamin 1 tab PO DAILY supplement 3 12/19/24 History tablet) buprenorphine HCl 150 mcg buccal 150 mcg buccal Q12H 05/06/2412/19 History film metformin 850 mg tablet 850 mg PO DAILY 05/06/24 12/19/24 History sertraline 50 mg tablet 50 mg PO DAILY 05/06/24 12/19/24 H istory acetaminophen 500 mg tablet 1,000 mg PO Q8H PRN PRN pain 05/0812/19/24 History (Acetaminophen Extra Strength) hydroxyzine pamoate 25 mg capsule 25 mg PO Q6H PRN anxiety 05/08/24 12/19/24 History (Vistaril) Have you fallen in the past year?: No PFSH Medical History (Updated 12/20/24 @ 09:[address] 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 [facility] 03-27-2024 36 LVM with information from Jennifer CASEY. Advised patient to call office ( left number) with any further questions or concerns. [facility] [address] Dr. Mercado agrees wit h initial note of having patient contact PCP to have them discuss the lasix with the facility doctor. He feels having the lasix available as needed for her limb swelling is a good idea, but we do not prescribe this medication [facility] 36 [facility] 36 [place] [address]on 01-29-2024 36 Patient called back- patient wanted to schedule next set of injections- bilateral USG Injection scheduled for 04/09. [facility] 36on 01-28-2024 36 [facility] PATINSon 04-03-2024 PATINS [facility] Progress Noteon 01-02-2024 Progress Note Normal [facility] PATINSon 12-26-2023 PATINS Normal [facility] Progress Noteon 12-26-2023 Progress Note Normal [facility] Progress Noteon 12-05-2023 Progress Note Normal [facility] 36on 11-20-2023 36 Spoke to Madeleine and confirmed scheduled appointment with Dr Titus. Normal [facility] 36 Normal [facility] 36on 10-24-2023 36 I called and left me ssage for patient to call back to change appointment - Can double book [place] office on 10/31 or 11/07 at 8am or [place] 11/05 at 8am. Normal [facility] 36 Normal [facility] Progress Noteon 10-12-2023 Progress Note Normal [facility] Progress Noteon 08-03-2023 Progress Note Normal [facility] Gram stain for investigation of transfusion reactionOrdered By: Laron Campoverde on 07-21-2023 Microscopic observation Gram stain Nom (Unsp spec) [facility] Microbial respiratory cultur eOrdered By: Laron Campoverde on 07-21-2023 Bacteria identified Respiratory culture Nom (Unsp spec) [facility] Whole blood hemoglobin A1c/t otal hemoglobin ratio (mass fraction)Ordered By: Laron Campoverde on 07-21-2023 HbA1c (Bld) [Mass fraction] 5.7 % 3.8-5.6 [facility] Comment on above: Normal < 5.7 % Predi abetic 5.7 - 6.4 % Diabetic >or= 6.5 % Please note range changes. Absolute lymphocyte countOrd ered By: Edy Calvin on 07-20-2023 Lymphocytes Auto (Unsp spec) [#/Vol] 1.92 10*3/uL 0.83-4.51 [facility] Basophil percentageOrdered B y: Edy Calvin on 07-20-2023 Basophils/100 WBC (Bld) 0.7 % 0-1 [facility] Chloride [Moles/Vol] 107 mmol/L 98-107 [facility] Eosinophils/100 WBC (Bld) 2.3 % 0-5 [facility] Glucose [Mass/Vol] 116 mg/dL 74-106 [facility] Comment on above: Fasting Glucose resu lt from 100 to 125 mg/dL suggests IMPAIRED HOMEOSTASIS per A.D.A. criteria. Neutrophils (Bld) [#/Vol] 4.5 10*3/uL 2.0-7.7 [facility] Neutrophils/100 WBC (Bld) 60.6 % 47-70 [facility] Potassium [Moles/Vol] 4.0 mmol/L 3.5-5.1 [facility] Sodium [Moles/Vol] 141 mmol/L 136-145 [facility] WBC (Bld) [#/Vol] 7.4 10*3/uL 4.4-11.0 [facility] Blood erythrocytes count (nu mber/volume)Ordered By: Edy Calvin on 07-20-2023 RBC (Bld) [#/Vol] 4.39 10*6/uL 4.2-5.4 [facility] Blood hemoglobin measurement (mass/volume)Ordered By: Edy Calvin on 07-20-2023 Hemoglobin (Bld) [Mass/Vol] 11.3 g/dL 12.0-15.0 [facility] Blood lymphocytes/100 leukoc ytesOrdered By: Edy Calvin on 07-20-2023 Lymphocytes/100 WBC (Bld) 25.9 % 19-41 [facility] Blood monocytes/100 leukocyt esOrdered By: Edy Calvin on 07-20-2023 Monocytes/100 WBC (Bld) 10.1 % 0-10 [facility] Blood platelet mean volumeOr dered By: Edy Calvin on 07-20-2023 Platelet mean volume (Bld) [Entitic vol] 11.5 fL 6.2-12.0 [facility] Determination of erythrocyte mean corpuscular volume (MCV)Ordered By: Edy Calvin on 07-20-2023 MCV (RBC) [Entitic vol] 83.8 fL 81-99 [facility] Hematocrit Auto (Bld) [Volum e fraction]Ordered By: Edy Calvin on 07-20-2023 Hematocrit (Bld) [Volume fraction] 36.8 % 37-47 [facility] Laboratory - Chemistry and C hemistry - challengeOrdered By: Edy Calvin on 07-20-2023 CO2 [Moles/Vol] 28.0 mmol/L 21.0-32.0 [facility] Urea nitrogen/Creatinine [Mass ratio] 23.7 mg/mg 10- [facility] - Hematology and Cell countsOrdered By: Edy Calvin on 07-20-2023 Erythrocyte distribution width (RBC) [Entitic vol] 46.1 fL 35.1-43.9 [facility] Erythrocyte distribution width (RBC) [Ratio] 15.2 % 11.6-14.6 [facility] Immature granulocytes/100 WBC (Bld) 0.400 % 0.0-0.9 [facility] Comment on above: IG% - Immature Granu locytes (promyelocytes, myelocytes and metamyelocytes) > 1% indicates that a LEFT SHIFT is Present. MCH (RBC) [Entitic mass] 25.7 pg 27.0-32.0 [facility] Nucleated RBC/100 WBC (Bld) [Ratio] 0 % 0-5 [facility] MCHC Auto (RBC) [Mass/Vol]Or dered By: Edy Calvin on 07-20-2023 MCHC (RBC) [Mass/Vol] 30.7 g/dL 32-36 [facility] No Panel InformationOrdered By: Edy Calvin on 07-20-2023 Troponin I High Sensitivity 5 pg/mL 3.0-54.0 [facility] Comment on above: Please Note: New Jen t Units and Gender Specific Reference Ranges. For more information see Policy Stat Procedure Liberal High Sensitivity Troponin (TNIH) and attachments. Estimated Creatinine Clearance Calc 70.93 ml/min [facility] Estimated GFR (MDRD) Amer 99 mL/min >60 [facility] Comment on above: GFR Calc Estimated GFR (MDRD) Non-Af Amer 82 mL/min >60 [facility] Comment on above: Non- GFR Calc Platelets bldOrdered By: Claudy Calvin on 07-20-2023 Platelets (Bld) [#/Vol] 294 10*3/uL 150-450 [facility] Serum or plasma calcium merissa urement (mass/volume)Ordered By: Edy Calvin on 07-20-2023 Calcium [Mass/Vol] 8.9 mg/dL 8.5-10.1 [facility] Serum or plasma creatinine m easurement (mass/volume)Ordered By: Edy Calvin on 07-20-2023 Creatinine [Mass/Vol] 0.76 mg/dL 0.55-1.02 [facility] Comment on above: The validity of the calculated GFR & GFRAA in patients over 70 years has not been determined. Clinical correlation is essential. Serum or plasma urea nitroge n measurement (mass/volume)Ordered By: Edy Calvin on 07-20-2023 Urea nitrogen [Mass/Vol] 18 mg/dL 7-18 [facility] Thin prep Papanicolaou smear with manual screeningOrdered By: Edy Calvin on 07-20-2023 Thin prep Papanicolaou smear with manual screening 6 5-15 [facility] Progress Noteon 07-11-2023 Progress Note Normal [facility] Progress Noteon 07-09-2023 Progress Note Normal [facility] 36on 07-04-2023 36 Patient discharged t [facility], call made to nurses station with no answer. Fax sent to [phone] (nurses station) with appointment reminder. Normal [facility] CARECOORDon 07-04-2023 [facility] Patient Choice Patient Name: SIOBHAN HAAS Date of : 1960 Normal [facility] CARECOORDon 07-03-2023 [facility] Normal [facility] Discharge med list transmitted to [facility] via [employer] ??? per TCC request. [id number] was entered into [employer] for the [facility]. Normal [facility] CBC WITH AUTO DIFFERENTIALon 07-03-2023 Basophils (Bld) [#/Vol] 0.0 10*3/uL Normal 0.0-0.2 [facility] Comment on above: Performed By: #### L [id number] ####Indirect Sales Exec: ANETTE SINGER ([phone])[facility] ([address] Basophils/100 WBC (Bld) 0.6 % Normal 0.0-2.0 [facility] Comment on above: Performed By: #### L [id number] ####Indirect Sales Exec: ANETTE SINGER ([phone])[facility])[address] [place] [address] Eosinophils (Bld) [#/Vol] 0.3 10*3/uL Normal 0.0-0.5 [facility] Comment on above: Performed By: #### L [id number] ####Indirect Sales Exec: ANETTE SINGER ([phone])[facility])[address] [place] [address] Eosinophils/100 WBC (Bld) 5.6 % Normal 1.0-6.0 [facility] Comment on above: Performed By: #### L [id number] ####Indirect Sales Exec: ANETTE SINGER ([phone])[facility])[address] [place] [address] Erythrocyte distribution width (RBC) [Ratio] 15.3 % High 11.5-14.5 [facility] Comment on above: Performed By: #### L [id number] ####Indirect Sales Exec: ANETTE SINGER ([phone])[facility])[address] [place] [address] ERYTHROCYTE MEAN CORPUSCULAR HEMOGLOBIN CONCENTRATION (G/DL) BY AUTOMATED 32.0 % Normal 32.0-36.0 [facility] Comment on above: Performed By: #### L [id number] ####Indirect Sales Exec: ANETTE SINGER ([phone])[facility])[address] [place] [address] Hematocrit (Bld) [Volume fraction] 34.0 % Low 35.0-47.0 [facility] Comment on above: Performed By: #### L [id number] ####Indirect Sales Exec: ANETTE SINGER ([phone])[facility])[address] [place] [address] Hemoglobin (Bld) [Mass/Vol] 10.9 g/dL Low 11.7-16.0 [facility] Comment on above: Performed By: #### L [id number] ####Indirect Sales Exec: ANETTE SINGER ([phone])[facility])[address] [place] [address] Lymphocytes (Bld) [#/Vol] 1.2 10*3/uL Normal 1.0-4.3 [facility] Comment on above: Performed By: #### L [id number] ####Indirect Sales Exec: ANETTE SINGER ([phone])[facility])[address] [place] [address] Lymphocytes/100 WBC (Bld) 22.4 % Normal 20.0-40.0 [facility] Comment on above: Performed By: #### L [id number] ####Indirect Sales Exec: ANETTE SINGER ([phone])[facility])[address] [place] [address] MCH (RBC) [Entitic mass] 26.4 pg Normal 26.0-34.0 [facility] Comment on above: Performed By: #### L [id number] ####Indirect Sales Exec: ANETTE SINGER ([phone])[facility])[address] [place] [address] MCV (RBC) [Entitic vol] 82.6 fL Normal 80.0-98.0 [facility] Comment on above: Performed By: #### L [id number] ####Indirect Sales Exec: ANETTE SINGER ([phone])[facility])[address] [place] [address] Monocytes (Bld) [#/Vol] 0.6 10*3/uL Normal 0.0-0.8 [facility] Comment on above: Performed By: #### L [id number] ####Indirect Sales Exec: ANETTE SINGER ([phone])[facility])[address] [place] [address] Monocytes/100 WBC (Bld) 10.9 % High 2.0-10.0 [facility] Comment on above: Performed By: #### L [id number] ####Indirect Sales Exec: ANETTE SINGER ([phone])[facility] ([facility])[address] [place] [address] Neutrophils (Bld) [#/Vol] 3.3 10*3/uL Normal 1.8-7.0 [facility] Comment on above: Performed By: #### L [id number] ####Indirect Sales Exec: ANETTE SINGER ([phone])[facility])[address] [place] [address] Neutrophils/100 WBC (Bld) 60.5 % Normal 40.0-80.0 [facility] Comment on above: Performed By: #### L [id number] ####Indirect Sales Exec: ANETTE SINGER ([phone])[facility])[address] [place] [address] NRBC (PER 100 WBCS) BY AUTOMATED COUNT 0.0 /100 WBCs Normal 0.0-2.0 [facility] Comment on above: Performed By: #### L [id number] ####Indirect Sales Exec: ANETTE SINGER ([phone])[facility] ([facility])[address] [place] [address] Platelet mean volume (Bld) [Entitic vol] 8.7 fL Normal 7.4-12.4 [facility] Comment on above: Performed By: #### L [id number] ####Indirect Sales Exec: ANETTE SINGER ([phone])[facility])[address] [place] [address] PLATELETS (10*3/UL) IN BLOOD AUTOMATED COUNT 237 10*3/uL Normal 140-440 [facility] Comment on above: Performed By: #### L [id number] ####Indirect Sales Exec: ANETTE SINGER ([phone])[facility] ([facility])[address] [place] [address] [place] RBC (Bld) [#/Vol] 4.11 10*6/uL Normal 3.8-5.20 [facility] Comment on above: Performed By: #### L [id number] ####Indirect Sales Exec: ANETTE SINGER ([phone])[facility])[address] [place] [address] WBC (Bld) [#/Vol] 5.4 10*3/uL Normal 3.6-10.7 [facility] Comment on above: Performed By: #### L [id number] ####Indirect Sales Exec: ANETTE SINGER ([phone])[facility] ([facility])[address] [place] [address] Progress Noteon 07-03-2023 Progress Note Normal [facility] CARECOORDon 07-02-2023 [place] Normal [facility] CAR[place]ORD Normal [facility] [place] Normal [facility] CBC WITH AUTO DIFFERENTIALon 07-02-2023 Basophils (Bld) [#/Vol] 0.1 10*3/uL Normal 0.0-0.2 [facility] Comment on above: Performed By: #### L [id number] ####Indirect Sales Exec: ANETTE SINGER ([phone])[facility] ([facility])[address] [place] [address] Basophils/100 WBC (Bld) 1.1 % Normal 0.0-2.0 [facility] Comment on above: Performed By: #### L [id number] ####Indirect Sales Exec: ANETTE SINGER ([phone])[facility] ([facility])[address] [place] [address] Eosinophils (Bld) [#/Vol] 0.3 10*3/uL Normal 0.0-0.5 [facility] Comment on above: Performed By: #### L [id number] ####Indirect Sales Exec: ANETTE SINGER ([phone])[facility])[address] [place] [address] Eosinophils/100 WBC (Bld) 5.1 % Normal 1.0-6.0 [facility] Comment on above: Performed By: #### L [id number] ####Indirect Sales Exec: ANETTE SINGER ([phone])[facility])[address] [place] [address] Erythrocyte distribution width (RBC) [Ratio] 15.4 % High 11.5-14.5 [facility] Comment on above: Performed By: #### L [id number] ####Indirect Sales Exec: ANETTE SINGER ([phone])[facility])[address] [place] [address] ERYTHROCYTE MEAN CORPUSCULAR HEMOGLOBIN CONCENTRATION (G/DL) BY AUTOMATED 32.0 % Normal 32.0-36.0 [facility] Comment on above: Performed By: #### L [id number] ####Indirect Sales Exec: ANETTE SINGER ([phone])[facility] ([facility])[address] [place] [address] Hematocrit (Bld) [Volume fraction] 33.4 % Low 35.0-47.0 [facility] Comment on above: Performed By: #### L [id number] ####Indirect Sales Exec: ANETTE SINGER ([id number])[facility])[address] [place] [address] Hemoglobin (Bld) [Mass/Vol] 10.7 g/dL Low 11.7-16.0 [facility] Comment on above: Performed By: #### L [id number] ####Indirect Sales Exec: ANETTE SINGER ([phone])[facility])[address] [place] [address] Lymphocytes (Bld) [#/Vol] 1.1 10*3/uL Normal 1.0-4.3 [facility] Comment on above: Performed By: #### L [id number] ####Indirect Sales Exec: ANETTE SINGER ([phone])[facility])[address] [place] [address] [place] Lymphocytes/100 WBC (Bld) 22.4 % Normal 20.0-40.0 [facility] Comment on above: Performed By: #### L [id number] ####Indirect Sales Exec: ANETTE SINGER ([phone])[facility])[address] [place] [address] MCH (RBC) [Entitic mass] 26.5 pg Normal 26.0-34.0 [facility] Comment on above: Performed By: #### L [id number] ####Indirect Sales Exec: ANETTE SINGER ([phone])[facility])[address] [place] [address] MCV (RBC) [Entitic vol] 82.8 fL Normal 80.0-98.0 [facility] Comment on above: Performed By: #### L [id number] ####Indirect Sales Exec: ANETTE SINGER ([phone])[facility])[address] [place] [address] Monocytes (Bld) [#/Vol] 0.5 10*3/uL Normal 0.0-0.8 [facility] Comment on above: Performed By: #### L [id number] ####Indirect Sales Exec: ANETTE SINGER ([phone])[facility])[address] [place] [address] Monocytes/100 WBC (Bld) 10.6 % High 2.0-10.0 [facility] Comment on above: Performed By: #### L [id number] ####Indirect Sales Exec: ANETTE SINGER ([phone])[facility])[address] [place] [address] Neutrophils (Bld) [#/Vol] 3.1 10*3/uL Normal 1.8-7.0 [facility] Comment on above: Performed By: #### L [id number] ####Indirect Sales Exec: ANETTE SINGER ([phone])[facility])[address] [place] [address] Neutrophils/100 WBC (Bld) 60.8 % Normal 40.0-80.0 [facility] Comment on above: Performed By: #### L [id number] ####Indirect Sales Exec: ANETTE SINGER ([phone])[facility])[address] [place] [address] NRBC (PER 100 WBCS) BY AUTOMATED COUNT 0.0 /100 WBCs Normal 0.0-2.0 [facility] Comment on above: Performed By: #### L [id number] ####Indirect Sales Exec: ANETTE SINGER ([id number])[facility])[address] [place] [address] Platelet mean volume (Bld) [Entitic vol] 8.3 fL Normal 7.4-12.4 [facility] Comment on above: Performed By: #### L [id number] ####Indirect Sales Exec: ANETTE SINGER ([phone])[facility])[address] [place] [address] PLATELETS (10*3/UL) IN BLOOD AUTOMATED COUNT 250 10*3/uL Normal 140-440 [facility] Comment on above: Performed By: #### L [id number] ####Indirect Sales Exec: ANETTE SINGER ([phone])[facility])[address] [place] [address] RBC (Bld) [#/Vol] 4.04 10*6/uL Normal 3.8-5.20 [facility] Comment on above: Performed By: #### L [id number] ####Indirect Sales Exec: ANETTE SINGER ([phone])[facility])[address] [place] [address] WBC (Bld) [#/Vol] 5.0 10*3/uL Normal 3.6-10.7 [facility] Comment on above: Performed By: #### L [id number] ####Indirect Sales Exec: ANETTE SINGER ([phone])[facility])[address] [place] [address] IDNon 07-02-2023 IDN Normal [facility] Progress Noteon 07-02-2023 Progress Note Normal [facility] Progress Note Normal [facility] Progress Note Normal [facility] Progress Note Normal [facility] Progress Note Normal [facility] CBC WITH AUTO DIFFERENTIALon 07-01-2023 Basophils (Bld) [#/Vol] 0.0 10*3/uL Normal 0.0-0.2 [facility] Comment on above: Performed By: #### L [id number] ####Indirect Sales Exec: ANETTE SINGER ([phone])[facility])[address] [place] [address] Basophils/100 WBC (Bld) 0.7 % Normal 0.0-2.0 [facility] Comment on above: Performed By: #### L [id number] ####Indirect Sales Exec: ANETTE SINGER ([phone])[facility])[address] [place] [address] Eosinophils (Bld) [#/Vol] 0.3 10*3/uL Normal 0.0-0.5 [facility] Comment on above: Performed By: #### L [id number] ####Indirect Sales Exec: ANETTE SINGER ([phone])[facility])[address] [place] [address] Eosinophils/100 WBC (Bld) 5.5 % Normal 1.0-6.0 [facility] Comment on above: Performed By: #### L [id number] ####Indirect Sales Exec: ANETTE SINGER ([phone])[facility])[address] [place] [address] Erythrocyte distribution width (RBC) [Ratio] 15.1 % High 11.5-14.5 [facility] Comment on above: Performed By: #### L [id number] ####Indirect Sales Exec: ANETTE SINGER ([phone])[address] ERYTHROCYTE MEAN CORPUSCULAR HEMOGLOBIN CONCENTRATION (G/DL) BY AUTOMATED 31.7 % Low 32.0-36.0 [facility] Comment on above: Performed By: #### L [id number] ####Indirect Sales Exec: ANETTE SINGER ([id number])[facility])[address] [place] [address] Hematocrit (Bld) [Volume fraction] 34.7 % Low 35.0-47.0 [facility] Comment on above: Performed By: #### L [id number] ####Indirect Sales Exec: ANETTE SINGER ([id number])[facility] [address] Hemoglobin (Bld) [Mass/Vol] 11.0 g/dL Low 11.7-16.0 [facility] Comment on above: Performed By: #### L [id number] ####Indirect Sales Exec: ANETTE SINGER ([phone])[facility])[address] [place] [address] Lymphocytes (Bld) [#/Vol] 1.2 10*3/uL Normal 1.0-4.3 [facility] Comment on above: Performed By: #### L [id number] ####Indirect Sales Exec: ANETTE SINGER ([phone])[address] Lymphocytes/100 WBC (Bld) 22.9 % Normal 20.0-40.0 [facility] Comment on above: Performed By: #### L [id number] ####Indirect Sales Exec: ANETTE SINGER ([phone])[facility])[address] [place] [address] MCH (RBC) [Entitic mass] 26.2 pg Normal 26.0-34.0 [facility] Comment on above: Performed By: #### L [id number] ####Indirect Sales Exec: ANETTE SINGER ([phone])[address] MCV (RBC) [Entitic vol] 82.8 fL Normal 80.0-98.0 [facility] Comment on above: Performed By: #### L [id number] ####Indirect Sales Exec: ANETTE SINGER ([phone])[facility])[address] [place] [address] Monocytes (Bld) [#/Vol] 0.6 10*3/uL Normal 0.0-0.8 [facility] Comment on above: Performed By: #### L [id number] ####Indirect Sales Exec: ANETTE SINGER ([phone])[facility])[address] [place] [address] Monocytes/100 WBC (Bld) 12.0 % High 2.0-10.0 [facility] Comment on above: Performed By: #### L [id number] ####Indirect Sales Exec: ANETTE SINGER ([phone])[facility])[address] [place] [address] Neutrophils (Bld) [#/Vol] 3.1 10*3/uL Normal 1.8-7.0 [facility] Comment on above: Performed By: #### L [id number] ####Indirect Sales Exec: ANETTE SINGER ([phone])[facility] ([facility])[address] [place] [address] Neutrophils/100 WBC (Bld) 58.9 % Normal 40.0-80.0 [facility] Comment on above: Performed By: #### L [id number] ####Indirect Sales Exec: ANETTE SINGER ([phone])[facility])[address] [place] [address] NRBC (PER 100 WBCS) BY AUTOMATED COUNT 0.0 /100 WBCs Normal 0.0-2.0 [facility] Comment on above: Performed By: #### L [id number] ####Indirect Sales Exec: ANETTE SINGER ([phone])[facility])[address] [place] [address] Platelet mean volume (Bld) [Entitic vol] 8.3 fL Normal 7.4-12.4 [facility] Comment on above: Performed By: #### L [id number] ####Indirect Sales Exec: ANETTE SINGER ([phone])[facility])[address] [place] [address] [place] PLATELETS (10*3/UL) IN BLOOD AUTOMATED COUNT 249 10*3/uL Normal 140-440 [facility] Comment on above: Performed By: #### L [id number] ####Indirect Sales Exec: ANETTE SINGER ([phone])[facility])[address] [place] [address] [place] RBC (Bld) [#/Vol] 4.19 10*6/uL Normal 3.8-5.20 [facility] Comment on above: Performed By: #### L [id number] ####Indirect Sales Exec: ANETTE SINGER ([phone])[facility])[address] [place] [address] WBC (Bld) [#/Vol] 5.2 10*3/uL Normal 3.6-10.7 [facility] Comment on above: Performed By: #### L [id number] ####Indirect Sales Exec: ANETTE SINGER ([phone])[facility] ([facility])[address] [place] [address] IDNon 07-01-2023 IDN Normal [facility] Progress Noteon 07-01-2023 Progress Note Normal [facility] CBC WITH AUTO DIFFERENTIALon 06-30-2023 Basophils (Bld) [#/Vol] 0.0 10*3/uL Normal 0.0-0.2 [facility] Comment on above: Performed By: #### L [id number] ####Indirect Sales Exec: ANETTE SINGER ([phone])[facility] ([facility])[address] [place] [address] Basophils/100 WBC (Bld) 0.8 % Normal 0.0-2.0 [facility] Comment on above: Performed By: #### L [id number] ####Indirect Sales Exec: ANETTE SINGER ([phone])[facility])[address] [place] [address] [place] Eosinophils (Bld) [#/Vol] 0.3 10*3/uL Normal 0.0-0.5 [facility] Comment on above: Performed By: #### L [id number] ####Indirect Sales Exec: ANETTE SINGER ([phone])[facility])[address] [place] [address] Eosinophils/100 WBC (Bld) 5.0 % Normal 1.0-6.0 [facility] Comment on above: Performed By: #### L [id number] ####Indirect Sales Exec: ANETTE [id number])[facility])[address] [place] [address] Erythrocyte distribution width (RBC) [Ratio] 15.3 % High 11.5-14.5 [facility] Comment on above: Performed By: #### L [id number] ####Indirect Sales Exec: ANETTE SINGER ([phone])[facility])[address] [place] [address] ERYTHROCYTE MEAN CORPUSCULAR HEMOGLOBIN CONCENTRATION (G/DL) BY AUTOMATED 31.7 % Low 32.0-36.0 [facility] Comment on above: Performed By: #### L [id number] ####Indirect Sales Exec: ANETTE SINGER ([phone])[address] Hematocrit (Bld) [Volume fraction] 34.8 % Low 35.0-47.0 [facility] Comment on above: Performed By: #### L [id number] ####Indirect Sales Exec: ANETTE SINGER ([id number])[facility])[address] [place] [address] Hemoglobin (Bld) [Mass/Vol] 11.1 g/dL Low 11.7-16.0 [facility] Comment on above: Performed By: #### L [id number] ####Indirect Sales Exec: ANETTE SINGER ([phone])[address] Lymphocytes (Bld) [#/Vol] 1.2 10*3/uL Normal 1.0-4.3 [facility] Comment on above: Performed By: #### L [id number] ####Indirect Sales Exec: ANETTE SINGER ([id number])[facility])[address] [place] [address] [place] Lymphocytes/100 WBC (Bld) 22.2 % Normal 20.0-40.0 [facility] Comment on above: Performed By: #### L [id number] ####Indirect Sales Exec: ANETTE SINGER ([phone])[facility])[address] [place] [address] MCH (RBC) [Entitic mass] 26.3 pg Normal 26.0-34.0 [facility] Comment on above: Performed By: #### L [id number] ####Indirect Sales Exec: ANETTE SINGER ([phone])[facility])[address] [place] [address] MCV (RBC) [Entitic vol] 82.9 fL Normal 80.0-98.0 [facility] Comment on above: Performed By: #### L [id number] ####Indirect Sales Exec: ANETTE SINGER ([phone])[facility])[address] [place] [address] Monocytes (Bld) [#/Vol] 0.7 10*3/uL Normal 0.0-0.8 [facility] Comment on above: Performed By: #### L [id number] ####Indirect Sales Exec: ANETTE SINGER ([id number])[facility])[address] [place] [address] Monocytes/100 WBC (Bld) 13.1 % High 2.0-10.0 [facility] Comment on above: Performed By: #### L [id number] ####Indirect Sales Exec: ANETTE SINGER ([phone])[facility])[address] [place] [address] Neutrophils (Bld) [#/Vol] 3.2 10*3/uL Normal 1.8-7.0 [facility] Comment on above: Performed By: #### L [id number] ####Indirect Sales Exec: ANETTE SINGER ([phone])[facility])[address] [place] [address] Neutrophils/100 WBC (Bld) 58.9 % Normal 40.0-80.0 [facility] Comment on above: Performed By: #### L [id number] ####Indirect Sales Exec: ANETTE SINGER ([id number])[facility])[address] [place] [address] NRBC (PER 100 WBCS) BY AUTOMATED COUNT 0.0 /100 WBCs Normal 0.0-2.0 [facility] Comment on above: Performed By: #### L [id number] ####Indirect Sales Exec: ANETTE SINGER ([phone])[facility])[address] [place] [address] Platelet mean volume (Bld) [Entitic vol] 9.2 fL Normal 7.4-12.4 [facility] Comment on above: Performed By: #### L [id number] ####Indirect Sales Exec: ANETTE SINGER ([phone])[facility] ([facility])[address] [place] [address] PLATELETS (10*3/UL) IN BLOOD AUTOMATED COUNT 249 10*3/uL Normal 140-440 [facility] Comment on above: Performed By: #### L [id number] ####Indirect Sales Exec: ANETTE SINGER ([id number])[facility] ([facility])[address] [place] [address] RBC (Bld) [#/Vol] 4.20 10*6/uL Normal 3.8-5.20 [facility] Comment on above: Performed By: #### L [id number] ####Indirect Sales Exec: ANETTE SINGER ([phone])[facility] ([facility])[address] [place] [address] WBC (Bld) [#/Vol] 5.4 10*3/uL Normal 3.6-10.7 [facility] Comment on above: Performed By: #### L [id number] ####Indirect Sales Exec: ANETTE SINGER ([phone])[facility] ([facility])[address] [place] [address] Progress Noteon 06-30-2023 Progress Note Normal [facility] 36on 06-29-2023 36 UPDATED IV Antibioti c Sheet Received. Patient remains in house at this time. Discharge plans pending. EOT scheduled for 07/11/23 at 10am, will need notified. Normal [facility] BASIC METABOLIC PANELon 09- Anion gap [Moles/Vol] 12 mmol/L Normal 3-13 [facility] Comment on above: Performed By: #### L [id number] ####Indirect Sales Exec: ANETTE SINGER ([phone])[facility])[address] [place] [address] Calcium [Mass/Vol] 8.8 mg/dL Normal 8.4-10.4 [facility] Comment on above: Performed By: #### L [id number] ####Indirect Sales Exec: ANETTE SINGER ([phone])[facility] ([facility])[address] [place] [address] Chloride [Moles/Vol] 103 mmol/L Normal 98-107 [facility] Comment on above: Performed By: #### L [id number] ####Indirect Sales Exec: ANETTE SINGER ([phone])[facility] ([facility])[address] [place] [address] CO2 [Moles/Vol] 25 mmol/L Normal 22-30 [facility] Comment on above: Performed By: #### L [id number] ####Indirect Sales Exec: ANETTE SINGER ([phone])[facility] ([facility])[address] [place] [address] Creatinine [Mass/Vol] 0.56 mg/dL Normal 0.52-1.04 [facility] Comment on above: Performed By: #### L [id number] ####Indirect Sales Exec: ANETTE SINGER ([phone])[facility] ([facility])[address] [place] [address] GLOMERULAR FILTRATION RATE ML/MIN/1.73 SQ M.PREDICTED >90.0 Normal >60.0 [facility] Comment on above: Result Comment: Calc ulation based on the Chronic Kidney Disease Epidemiology Collaboration (CKD-EPI) equation refit without adjustment for race Performed By: #### L [id number] ####Indirect Sales Exec: ANETTE SINGER ([phone])[facility] ([facility])[address] [place] [address] [place] Glucose [Mass/Vol] 115 mg/dL High 70-100 [facility] Comment on above: Performed By: #### L AB15 ####Indirect Sales Exec: ANETTE SINGER ([phone])[facility] ([facility])[address] [place] [address] Potassium [Moles/Vol] 3.8 mmol/L Normal 3.5-5.1 [facility] Comment on above: Performed By: #### L AB15 ####Indirect Sales Exec: ANETTE SINEGR ([phone])[facility])[address] [place] [address] Sodium [Moles/Vol] 139 mmol/L Normal 135-145 [facility] Comment on above: Performed By: #### L AB15 ####Indirect Sales Exec: ANETTE SINGER ([phone])[facility])[address] [place] [address] Urea nitrogen [Mass/Vol] 13 mg/dL Normal 7-17 [facility] Comment on above: Performed By: #### L AB15 ####Indirect Sales Exec: ANETTE SINGER ([phone])[facility] ([facility])[address] [place] [address] CARECOORDon 06-29-2023 CARECOORD Normal [facility] CARECOORD Normal [facility] CBC WITH AUTO DIFFERENTIALon 06-29-2023 Basophils (Bld) [#/Vol] 0.0 10*3/uL Normal 0.0-0.2 [facility] Comment on above: Performed By: #### L [id number] ####Indirect Sales Exec: ANETTE SINGER ([phone])[facility] ([facility])[address] [place] [address] Basophils/100 WBC (Bld) 0.8 % Normal 0.0-2.0 [facility] Comment on above: Performed By: #### L [id number] ####Indirect Sales Exec: ANETTE SINGER ([phone])[facility])[address] [place] [address] Eosinophils (Bld) [#/Vol] 0.3 10*3/uL Normal 0.0-0.5 [facility] Comment on above: Performed By: #### L [id number] ####Indirect Sales Exec: ANETTE SINGER ([phone])[facility])[address] [place] [address] Eosinophils/100 WBC (Bld) 5.7 % Normal 1.0-6.0 [facility] Comment on above: Performed By: #### L [id number] ####Indirect Sales Exec: ANETTE SINGER ([phone])[facility])[address] [place] [address] Erythrocyte distribution width (RBC) [Ratio] 15.3 % High 11.5-14.5 [facility] Comment on above: Performed By: #### L [id number] ####Indirect Sales Exec: ANETTE SINGER ([phone])[facility])[address] [place] [address] ERYTHROCYTE MEAN CORPUSCULAR HEMOGLOBIN CONCENTRATION (G/DL) BY AUTOMATED 32.0 % Normal 32.0-36.0 [facility] Comment on above: Performed By: #### L [id number] ####Indirect Sales Exec: ANETTE SINGER ([phone])[facility])[address] [place] [address] Hematocrit (Bld) [Volume fraction] 37.6 % Normal 35.0-47.0 [facility] Comment on above: Performed By: #### L [id number] ####Indirect Sales Exec: ANETTE SINGER ([phone])[facility])[address] [place] [address] Hemoglobin (Bld) [Mass/Vol] 12.1 g/dL Normal 11.7-16.0 [facility] Comment on above: Performed By: #### L [id number] ####Indirect Sales Exec: ANETTE SINGER ([phone])[facility])[address] [place] [address] Lymphocytes (Bld) [#/Vol] 1.5 10*3/uL Normal 1.0-4.3 [facility] Comment on above: Performed By: #### L [id number] ####Indirect Sales Exec: ANETTE SINGER ([phone])[facility])[address] [place] [address] Lymphocytes/100 WBC (Bld) 27.3 % Normal 20.0-40.0 [facility] Comment on above: Performed By: #### L [id number] ####Indirect Sales Exec: ANETTE SINGER ([phone])[facility])[address] [place] [address] MCH (RBC) [Entitic mass] 26.6 pg Normal 26.0-34.0 [facility] Comment on above: Performed By: #### L [id number] ####Indirect Sales Exec: ANETTE SINGER ([phone])[facility])[address] [place] [address] MCV (RBC) [Entitic vol] 83.0 fL Normal 80.0-98.0 [facility] Comment on above: Performed By: #### L [id number] ####Indirect Sales Exec: ANETTE SINGER ([phone])[facility])[address] [place] [address] Monocytes (Bld) [#/Vol] 0.6 10*3/uL Normal 0.0-0.8 [facility] Comment on above: Performed By: #### L [id number] ####Indirect Sales Exec: ANETTE SINGER ([phone])[facility])[address] [place] [address] Monocytes/100 WBC (Bld) 12.0 % High 2.0-10.0 [facility] Comment on above: Performed By: #### L [id number] ####Indirect Sales Exec: ANETTE SINGER ([phone])[facility])[address] [place] [address] Neutrophils (Bld) [#/Vol] 2.9 10*3/uL Normal 1.8-7.0 [facility] Comment on above: Performed By: #### L [id number] ####Indirect Sales Exec: ANETTE SINGER ([phone])[facility] ([address] Neutrophils/100 WBC (Bld) 54.2 % Normal 40.0-80.0 [facility] Comment on above: Performed By: #### L [id number] ####Indirect Sales Exec: ANETTE SINGER ([phone])[facility])[address] [place] [address] NRBC (PER 100 WBCS) BY AUTOMATED COUNT 0.0 /100 WBCs Normal 0.0-2.0 [facility] Comment on above: Performed By: #### L [id number] ####Indirect Sales Exec: ANETTE SINGER ([phone])[facility])[address] [place] [address] Platelet mean volume (Bld) [Entitic vol] 8.9 fL Normal 7.4-12.4 [facility] Comment on above: Performed By: #### L [id number] ####Indirect Sales Exec: ANETTE SINGER ([phone])[facility] ([facility])[address] [place] [address] PLATELETS (10*3/UL) IN BLOOD AUTOMATED COUNT 259 10*3/uL Normal 140-440 [facility] Comment on above: Performed By: #### L [id number] ####Indirect Sales Exec: ANETTE SINGER ([phone])[facility])[address] [place] [address] RBC (Bld) [#/Vol] 4.53 10*6/uL Normal 3.8-5.20 [facility] Comment on above: Performed By: #### L [id number] ####Indirect Sales Exec: ANETTE SINGER ([phone])[facility])[address] [place] [address] WBC (Bld) [#/Vol] 5.4 10*3/uL Normal 3.6-10.7 [facility] Comment on above: Performed By: #### L [id number] ####Indirect Sales Exec: ANETTE SINGER ([phone])[facility] ([facility])[address] [place] [address] Progress Noteon 06-29-2023 Progress Note Normal [facility] Progress Note Normal [facility] Progress Note Normal [facility] Progress Note Normal [facility] XR CHEST 1 VIEWon 06-29-2023 XR CHEST 1 VIEW Normal [facility] CARECOORDon 06-28-2023 CAR[place]OORD Normal [facility] Progress Noteon 06-28-2023 Progress Note Normal [facility] Progress Note Normal [facility] Progress Note Normal [facility] Progress Note Normal [facility] Progress Note Nutrition rescreen completed. Patient referred to the Dietitian. Non-healing wound. Normal [facility] [id number] 06-27-2023 [id number] Normal [facility] CBC WITH AUTO DIFFERENTIALon 06-27-2023 Basophils (Bld) [#/Vol] 0.0 10*3/uL Normal 0.0-0.2 [facility] Comment on above: Performed By: #### L [id number] ####Indirect Sales Exec: ANETTE SINGER ([phone])[facility])[address] [place] [address] Basophils/100 WBC (Bld) 1.0 % Normal 0.0-2.0 [facility] Comment on above: Performed By: #### L [id number] ####Indirect Sales Exec: ANETTE SINGER ([phone])[place] [address] [place] Eosinophils (Bld) [#/Vol] 0.3 10*3/uL Normal 0.0-0.5 [facility] Comment on above: Performed By: #### L [id number] ####Indirect Sales Exec: ANETTE SINGER ([phone])[facility])[address] [place] [address] [place] Eosinophils/100 WBC (Bld) 6.3 % High 1.0-6.0 [facility] Comment on above: Performed By: #### L [id number] ####Indirect Sales Exec: ANETTE SINGER ([phone])[place] [address] [place] Erythrocyte distribution width (RBC) [Ratio] 15.3 % High 11.5-14.5 [facility] Comment on above: Performed By: #### L [id number] ####Indirect Sales Exec: ANETTE SINGER ([phone])[facility])[address] [place] [address] ERYTHROCYTE MEAN CORPUSCULAR HEMOGLOBIN CONCENTRATION (G/DL) BY AUTOMATED 32.3 % Normal 32.0-36.0 [facility] Comment on above: Performed By: #### L [id number] ####Indirect Sales Exec: ANETTE SINGER ([phone])[facility])[address] [place] [address] Hematocrit (Bld) [Volume fraction] 36.2 % Normal 35.0-47.0 [facility] Comment on above: Performed By: #### L [id number] ####Indirect Sales Exec: ANETTE SINGER ([phone])[facility])[address] [place] [address] Hemoglobin (Bld) [Mass/Vol] 11.7 g/dL Normal 11.7-16.0 [facility] Comment on above: Performed By: #### L [id number] ####Indirect Sales Exec: ANETTE SINGER ([phone])[facility])[address] [place] [address] Lymphocytes (Bld) [#/Vol] 1.2 10*3/uL Normal 1.0-4.3 [facility] Comment on above: Performed By: #### L [id number] ####Indirect Sales Exec: ANETTE SINGER ([phone])[facility])[address] [place] [address] Lymphocytes/100 WBC (Bld) 25.3 % Normal 20.0-40.0 [facility] Comment on above: Performed By: #### L [id number] ####Indirect Sales Exec: ANETTE SINGER ([phone])[facility])[address] [place] [address] MCH (RBC) [Entitic mass] 26.9 pg Normal 26.0-34.0 [facility] Comment on above: Performed By: #### L [id number] ####Indirect Sales Exec: ANETTE SINGER ([phone])[facility])[address] [place] [address] MCV (RBC) [Entitic vol] 83.1 fL Normal 80.0-98.0 [facility] Comment on above: Performed By: #### L [id number] ####Indirect Sales Exec: ANETTE SINGER ([phone])[facility])[address] [place] [address] Monocytes (Bld) [#/Vol] 0.6 10*3/uL Normal 0.0-0.8 [facility] Comment on above: Performed By: #### L [id number] ####Indirect Sales Exec: ANETTE SINGER ([phone])[facility])[address] [place] [address] Monocytes/100 WBC (Bld) 12.2 % High 2.0-10.0 [facility] Comment on above: Performed By: #### L [id number] ####Indirect Sales Exec: ANETTE SINGER ([phone])[facility])[address] [place] [address] Neutrophils (Bld) [#/Vol] 2.6 10*3/uL Normal 1.8-7.0 [facility] Comment on above: Performed By: #### L [id number] ####Indirect Sales Exec: ANETTE SINGER ([phone])[facility])[address] [place] [address] Neutrophils/100 WBC (Bld) 55.2 % Normal 40.0-80.0 [facility] Comment on above: Performed By: #### L [id number] ####Indirect Sales Exec: ANETTE SINGER ([phone])[facility])[address] [place] [address] NRBC (PER 100 WBCS) BY AUTOMATED COUNT 0.1 /100 WBCs Normal 0.0-2.0 [facility] Comment on above: Performed By: #### L [id number] ####Indirect Sales Exec: ANETTE SINGER ([phone])[facility])[address] [place] [address] Platelet mean volume (Bld) [Entitic vol] 8.5 fL Normal 7.4-12.4 [facility] Comment on above: Performed By: #### L [id number] ####Indirect Sales Exec: ANETTE SINGER ([phone])[facility] ([facility])[address] [place] [address] PLATELETS (10*3/UL) IN BLOOD AUTOMATED COUNT 247 10*3/uL Normal 140-440 [facility] Comment on above: Performed By: #### L [id number] ####Indirect Sales Exec: ANETTE SINGER ([phone])[facility] ([facility])[address] [place] [address] RBC (Bld) [#/Vol] 4.35 10*6/uL Normal 3.8-5.20 [facility] Comment on above: Performed By: #### L [id number] ####Indirect Sales Exec: ANETTE SINGER ([phone])[facility])[address] [place] [address] WBC (Bld) [#/Vol] 4.6 10*3/uL Normal 3.6-10.7 [facility] Comment on above: Performed By: #### L [id number] ####Indirect Sales Exec: ANETTE SINGER ([phone])[facility])[address] [place] [address] COMPREHENSIVE METABOLIC PANE [place] 06-27-2023 Albumin [Mass/Vol] 3.6 g/dL Normal 3.5-5.0 [facility] Comment on above: Performed By: #### L [id number] ####Indirect Sales Exec: ANETTE SINGER ([phone])[facility])[address] [place] [address] ALP [Catalytic activity/Vol] 130 U/L High 38-126 [facility] Comment on above: Performed By: #### L [id number] ####Indirect Sales Exec: ANETTE SINGER ([phone])[facility] ([facility])[address] [place] [address] ALT [Catalytic activity/Vol] 23 U/L Normal 0-34 [facility] Comment on above: Performed By: #### L [id number] ####Indirect Sales Exec: ANETTE SINGER ([phone])[facility] ([facility])[address] [place] [address] Anion gap [Moles/Vol] 10 mmol/L Normal 3-13 [facility] Comment on above: Performed By: #### L AB17 ####Indirect Sales Exec: ANETTE SINGER ([phone])[facility] ([facility])[address] [place] [address] AST [Catalytic activity/Vol] 23 U/L Normal 15-46 [facility] Comment on above: Performed By: #### L AB17 ####Indirect Sales Exec: ANETTE SINGER ([phone])[facility] ([facility])[address] [place] [address] Bilirubin [Mass/Vol] 0.4 mg/dL Normal 0.2-1.3 [facility] Comment on above: Performed By: #### L AB17 ####Indirect Sales Exec: ANETTE SINGER ([phone])[facility] ([facility])[address] [place] [address] Calcium [Mass/Vol] 8.7 mg/dL Normal 8.4-10.4 [facility] Comment on above: Performed By: #### L [id number] ####Indirect Sales Exec: ANETTE SINGER ([phone])[facility] ([facility])[address] [place] [address] [place] Chloride [Moles/Vol] 104 mmol/L Normal 98-107 [facility] Comment on above: Performed By: #### L AB17 ####Indirect Sales Exec: ANETTE SINGER ([phone])[facility] ([facility])[address] [place] [address] [place] CO2 [Moles/Vol] 24 mmol/L Normal 22-30 [facility] Comment on above: Performed By: #### L AB17 ####Indirect Sales Exec: ANETTE SINGER ([phone])[facility])[address] [place] [address] Creatinine [Mass/Vol] 0.59 mg/dL Normal 0.52-1.04 [facility] Comment on above: Performed By: #### L AB17 ####Indirect Sales Exec: ANETTE SINGER ([phone])[facility])[address] [place] [address] GLOMERULAR FILTRATION RATE ML/MIN/1.73 SQ M.PREDICTED >90.0 Normal >60.0 [facility] Comment on above: Result Comment: Calc ulation based on the Chronic Kidney Disease Epidemiology Collaboration (CKD-EPI) equation refit without adjustment for race Performed By: #### L AB17 ####Indirect Sales Exec: ANETTE SINGER ([phone])[facility])[address] [place] [address] Glucose [Mass/Vol] 125 mg/dL High 70-100 [facility] Comment on above: Performed By: #### L AB17 ####Indirect Sales Exec: ANETTE SINGER ([phone])[facility])[address] [place] [address] Potassium [Moles/Vol] 4.0 mmol/L Normal 3.5-5.1 [facility] Comment on above: Performed By: #### L AB17 ####Indirect Sales Exec: ANETTE SINGER ([phone])[facility])[address] [place] [address] Protein [Mass/Vol] 6.8 g/dL Normal 6.3-8.2 [facility] Comment on above: Performed By: #### L AB17 ####Indirect Sales Exec: ANETTE SINGER ([phone])[facility])[address] [place] [address] Sodium [Moles/Vol] 137 mmol/L Normal 135-145 [facility] Comment on above: Performed By: #### L AB17 ####Indirect Sales Exec: ANETTE SINGER ([phone])[address] Urea nitrogen [Mass/Vol] 17 mg/dL Normal 7-17 [facility] Comment on above: Performed By: #### L AB17 ####Indirect Sales Exec: ANETTE SINGER ([phone])[address] Consulton 06-27-2023 Consult Normal [facility] IDNon 06-27-2023 IDN Normal [facility] Nursing Noteon 06-27-2023 Nursing Note Normal [facility] PROTIME AND APTTon aPTT Coag (Bld) [Time] 30.7 s High 20.0-30.5 [facility] Comment on above: Performed By: #### L [id number] ####Indirect Sales Exec: ANETTE SINGER ([phone])[address] INR Coag (PPP) [Relative time] 1.0 {INR} Normal 0.9-1.1 [facility] Comment on above: Result Comment: Alexis mmended Anticoagulant Therapy: SEE BELOW----- INR of 2.0 - 3.0 : - Prophylaxis of Venous Thrombosis (high-risk surgery) - Treatment of Venous Thrombosis - Treatment of Pulmonary Embolism (Includes tissue heart valves, Acute Myocardial Infarction to prevent systemic embolism, Valvular Heart Disease, and Atrial Fibrillation)----- INR of 2.5 - 3.5 : - Mechanical Prosthetic Valves (high risk) - If oral anticoagulant therapy is used to prevent Myocardial Infarction Performed By: #### L [id number] ####Indirect Sales Exec: ANETTE SINGER ([phone])[facility])[address] [place] [address] PT Coag (PPP) [Time] 10.7 s Normal 9.0-12.0 [facility] Comment on above: Performed By: #### L [id number] ####Indirect Sales Exec: ANETTE [phone])[facility])[address] [place] [address] Progress Noteon 06-27-2023 Progress Note Nurse hung Daptomyci n and when flushing IV, it was burning and hurting. Nurse stopped antibiotic on NOV and she will need new IV. Normal [facility] Progress Note Normal [facility] Progress Note Physical Therapy Pt OOR this date. Pt transferred to floor. PT will re-attempt as able. Normal [facility] Progress Note Normal [facility] BLOOD CULTUREon 06-26-2023 Bacteria identified Cx Nom (Bld) Normal [facility] Comment on above: Performed By: #### L [id number] ####Indirect Sales Exec: ANETTE SINGER ([phone])[address] Bacteria identified Cx Nom (Bld) Normal [facility] Comment on above: Performed By: #### L AB462 ####Indirect Sales Exec: ANETTE SINGER ([phone])[address] Consulton 06-26-2023 Consult Normal [facility] Progress Noteon 06-26-2023 Progress Note Normal [facility] C-REACTIVE PROTEINon 023 CRP [Mass/Vol] 11.9 mg/L High <10.0 [facility] Comment on above: Performed By: #### L AB149, LAB17 ####Indirect Sales Exec: ANETTE SINGER ([phone])[facility])[address] [place] [address] CARECOORDon 06-25-2023 CARECOORD Normal [facility] CBC WITH AUTO DIFFERENTIALon 06-25-2023 Basophils (Bld) [#/Vol] 0.1 10*3/uL Normal 0.0-0.2 [facility] Comment on above: Performed By: #### L HH0051, [id number] ####Indirect Sales Exec: ANETTE SINGER ([phone])[address] Basophils/100 WBC (Bld) 0.9 % Normal 0.0-2.0 [facility] Comment on above: Performed By: #### L [id number], [id number] ####Indirect Sales Exec: ANETTE SINGER ([phone])[facility])[address] [place] [address] Eosinophils (Bld) [#/Vol] 0.3 10*3/uL Normal 0.0-0.5 [facility] Comment on above: Performed By: #### L BL6987, EGZ516 ####Indirect Sales Exec: ANETTE SINGER ([phone])[address] Eosinophils/100 WBC (Bld) 4.9 % Normal 1.0-6.0 [facility] Comment on above: Performed By: #### L DE4292, EIU771 ####Indirect Sales Exec: ANETTE SINGER ([phone])[facility])[address] [place] [address] Erythrocyte distribution width (RBC) [Ratio] 15.6 % High 11.5-14.5 [facility] Comment on above: Performed By: #### L HD6849, UGL009 ####Indirect Sales Exec: ANETTE SINGER ([phone])[address] ERYTHROCYTE MEAN CORPUSCULAR HEMOGLOBIN CONCENTRATION (G/DL) BY AUTOMATED 32.1 % Normal 32.0-36.0 [facility] Comment on above: Performed By: #### L RI9123, IYM105 ####Indirect Sales Exec: ANETTE SINGER ([phone])[address] Hematocrit (Bld) [Volume fraction] 41.8 % Normal 35.0-47.0 [facility] Comment on above: Performed By: #### L [id number], [id number] ####Indirect Sales Exec: ANETTE [phone])[place] [address] [place] Hemoglobin (Bld) [Mass/Vol] 13.4 g/dL Normal 11.7-16.0 [facility] Comment on above: Performed By: #### Krystyna CZ7414, [id number] ####Indirect Sales Exec: ANETTE SINGER ([phone])[facility])[address] [place] [address] Lymphocytes (Bld) [#/Vol] 1.6 10*3/uL Normal 1.0-4.3 [facility] Comment on above: Performed By: #### Krystyna EZ2914, RTL105 ####Indirect Sales Exec: ANETTE SINGER ([phone])[address] Lymphocytes/100 WBC (Bld) 27.6 % Normal 20.0-40.0 [facility] Comment on above: Performed By: #### Krystyna PAGAN, USI396 ####Indirect Sales Exec: ANETTE SINGER ([phone])[facility])[address] [place] [address] MCH (RBC) [Entitic mass] 26.7 pg Normal 26.0-34.0 [facility] Comment on above: Performed By: #### Krystyna LY3765, PMY232 ####Indirect Sales Exec: ANETTE SINGER ([phone])[address] MCV (RBC) [Entitic vol] 83.2 fL Normal 80.0-98.0 [facility] Comment on above: Performed By: #### Krystyna AE7549, KXD173 ####Indirect Sales Exec: ANETTE SINGER ([phone])[facility])[address] [place] [address] Monocytes (Bld) [#/Vol] 0.7 10*3/uL Normal 0.0-0.8 [facility] Comment on above: Performed By: #### Krystyna [id number], [id number] ####Indirect Sales Exec: ANETTE SINGER ([phone])[facility] [place] [address] Monocytes/100 WBC (Bld) 12.7 % High 2.0-10.0 [facility] Comment on above: Performed By: #### Krystyna [id number], [id number] ####Indirect Sales Exec: ANETTE SINGER ([phone])[facility])[address] [place] [address] Neutrophils (Bld) [#/Vol] 3.2 10*3/uL Normal 1.8-7.0 [facility] Comment on above: Performed By: #### Krystyna [id number], [id number] ####Indirect Sales Exec: ANETTE SINGER ([phone])[facility])[address] [place] [address] Neutrophils/100 WBC (Bld) 53.9 % Normal 40.0-80.0 [facility] Comment on above: Performed By: #### Krystyna PAGAN, [id number] ####Indirect Sales Exec: ANETTE SINGER ([phone])[facility])[address] [place] [address] NRBC (PER 100 WBCS) BY AUTOMATED COUNT 0.0 /100 WBCs Normal 0.0-2.0 [facility] Comment on above: Performed By: #### Krystyna [id number], [id number] ####Indirect Sales Exec: ANETTE SINGER ([phone])[facility])[address] [place] [address] Platelet mean volume (Bld) [Entitic vol] 8.8 fL Normal 7.4-12.4 [facility] Comment on above: Performed By: #### L [id number], [id number] ####Indirect Sales Exec: ANETTE SINGER ([phone])[facility])[address] [place] [address] PLATELETS (10*3/UL) IN BLOOD AUTOMATED COUNT 288 10*3/uL Normal 140-440 [facility] Comment on above: Performed By: #### Krystyna [id number], [id number] ####Indirect Sales Exec: ANETTE SINGER ([phone])[facility] ([facility])[address] [place] [address] RBC (Bld) [#/Vol] 5.02 10*6/uL Normal 3.8-5.20 [facility] Comment on above: Performed By: #### L [id number], [id number] ####Indirect Sales Exec: ANETTE SINGER ([phone])[facility] ([facility])[address] [place] [address] WBC (Bld) [#/Vol] 5.9 10*3/uL Normal 3.6-10.7 [facility] Comment on above: Performed By: #### L [id number], [id number] ####Indirect Sales Exec: ANETTE SINGER ([phone])[facility] ([facility])[address] [place] [address] COMPREHENSIVE METABOLIC PANE [employer] 06-25-2023 Albumin [Mass/Vol] 4.3 g/dL Normal 3.5-5.0 [facility] Comment on above: Performed By: #### L [id number], [id number] ####Indirect Sales Exec: ANETTE SINGER ([phone])[facility] ([facility])[address] [place] [address] ALP [Catalytic activity/Vol] 136 U/L High 38-126 [facility] Comment on above: Performed By: #### L [id number], [id number] ####Indirect Sales Exec: ANETTE SINGER ([phone])[facility] ([facility])[address] [place] [address] ALT [Catalytic activity/Vol] 30 U/L Normal 0-34 [facility] Comment on above: Performed By: #### L AB149, LAB17 ####Indirect Sales Exec: ANETTE SINGER ([phone])[facility])[address] [place] [address] Anion gap [Moles/Vol] 10 mmol/L Normal 3-13 [facility] Comment on above: Performed By: #### L AB149, LAB17 ####Indirect Sales Exec: ANETTE SINGER ([phone])[facility] ([facility] [place] [address] [place] AST [Catalytic activity/Vol] 32 U/L Normal 15-46 [facility] Comment on above: Performed By: #### L CATRACHITO, LAB17 ####Indirect Sales Exec: ANETTE SINGER ([phone])[facility] ([facility])[address] [place] [address] [place] Bilirubin [Mass/Vol] 0.5 mg/dL Normal 0.2-1.3 [facility] Comment on above: Performed By: #### L CATRACHITO, LAB17 ####Indirect Sales Exec: ANETTE SINGER ([phone])[facility] ([facility])[address] [place] [address] Calcium [Mass/Vol] 9.7 mg/dL Normal 8.4-10.4 [facility] Comment on above: Performed By: #### Krystyna WINSTON, LAB17 ####Indirect Sales Exec: ANETTE SINGER ([phone])[facility] ([facility] [place] [address] [place] Chloride [Moles/Vol] 105 mmol/L Normal 98-107 [facility] Comment on above: Performed By: #### Krystyna WINSTON, LAB17 ####Indirect Sales Exec: ANETTE SINGER ([phone])[facility] ([facility])[address] [place] [address] [place] CO2 [Moles/Vol] 26 mmol/L Normal 22-30 [facility] Comment on above: Performed By: #### L CATRACHITO, LAB17 ####Indirect Sales Exec: ANETTE SINGER ([phone])[facility] [place] [address] [place] Creatinine [Mass/Vol] 0.58 mg/dL Normal 0.52-1.04 [facility] Comment on above: Performed By: #### L AB149, LAB17 ####Indirect Sales Exec: ANETTE SINGER ([phone])[facility] ([facility])[address] [place] [address] [place] GLOMERULAR FILTRATION RATE ML/MIN/1.73 SQ M.PREDICTED >90.0 Normal >60.0 [facility] Comment on above: Result Comment: Calc ulation based on the Chronic Kidney Disease Epidemiology Collaboration (CKD-EPI) equation refit without adjustment for race Performed By: #### Krystyna WINSTON, LAB17 ####Indirect Sales Exec: ANETTE SINGER ([phone])[facility] ([facility])[address] [place] [address] Glucose [Mass/Vol] 106 mg/dL High 70-100 [facility] Comment on above: Performed By: #### Krystyna WINSTON, LAB17 ####Indirect Sales Exec: ANETTE SINGER ([phone])[facility])[address] [place] [address] Potassium [Moles/Vol] 4.6 mmol/L Normal 3.5-5.1 [facility] Comment on above: Performed By: #### Krystyna WINSTON, LAB17 ####Indirect Sales Exec: ANETTE SINGER ([phone])[facility])[address] [place] [address] Protein [Mass/Vol] 8.2 g/dL Normal 6.3-8.2 [facility] Comment on above: Performed By: #### Krystyna WINSTON, LAB17 ####Indirect Sales Exec: ANETTE SINGER ([phone])[facility])[address] [place] [address] Sodium [Moles/Vol] 141 mmol/L Normal 135-145 [facility] Comment on above: Performed By: #### Krystyna WINSTON, LAB17 ####Indirect Sales Exec: ANETTE SINGER ([phone])[facility])[address] [place] [address] Urea nitrogen [Mass/Vol] 16 mg/dL Normal 7-17 [facility] Comment on above: Performed By: #### L CATRACHITO, LAB17 ####Indirect Sales Exec: ANETTE SINGER ([phone])[facility])[address] [place] [address] ED Nursing Noteon 06-25-2023 ED Nursing Note Bed: 74 Expected date: Expected time: Means of arrival: Comments: 25 Megan Mcclelland RN 06/26/23 0622 Normal [facility] ED Provider Noteon ED Provider Note Normal [facility] SEDIMENTATION RATE, AUTOMATE Don 06-25-2023 SEDIMENTATION RATE, ERYTHROCYTE 57 mm/hr High 0-20 [facility] Comment on above: Performed By: #### L [id number], [id number] ####Indirect Sales Exec: ANETTE SINGER ([phone])[facility] ([facility])[address] [place] [address] Basic Metabolic Panel ([facility] )on 06-19-2023 Calcium [Mass/Vol] 9.3 mg/dL 8.6 - 10. 4 mg/dL [facility] Chloride [Moles/Vol] 104 mmol/L 98 - 11 0 mmol/L [facility] CO2 [Moles/Vol] 27 mmol/L 20 - 32 mmol/L [facility] Creatinine [Mass/Vol] 0.58 mg/dL 0.50 - 1.05 mg/dL [facility] GFR/1.73 sq M.predicted among non-blacks MDRD (S/P/Bld) [Vol rate/Area] 102 mL/min/{1.73_m2} > OR = 60 mL/min/1.[address] [facility] Glucose [Mass/Vol] 97 mg/dL 65 - 99 mg/dL [facility] Comment on above: Fasting reference interval Potassium [Moles/Vol] 4.2 mmol/L 3.5 - 5.3 mmol/L [facility] Sodium [Moles/Vol] 140 mmol/L 135 - 146 mmol/L [facility] Urea nitrogen [Mass/Vol] 12 mg/dL 7 - 25 mg/dL [facility] Urea nitrogen/Creatinine [Mass ratio] SEE NOTE: [facility] Comment on above: Not Reported: BUN an d Creatinine are within reference range. CBC W Auto Differential pane l (Bld)on 06-19-2023 Basophils (Bld) [#/Vol] 40 10*3/uL [facility] Basophils/100 WBC (Bld) 0.6 % [facility] Comment on above: Your request to have a duplicate copy faxed has been acknowledged. Queued to: [id number] Eosinophils (Bld) [#/Vol] 281 10*3/uL [facility] Eosinophils/100 WBC (Bld) 4.2 % [facility] Erythrocyte distribution width (RBC) [Ratio] 14.0 % 11.0 - 15.0 % [facility] Hematocrit (Bld) [Volume fraction] 38.6 % 35.0 - 45.0 % [facility] Hemoglobin (Bld) [Mass/Vol] 12.5 g/dL 11.7 - 15.5 g/dL [facility] Lymphocytes (Bld) [#/Vol] 1447 10*3/uL [facility] Lymphocytes/100 WBC (Bld) 21.6 % [facility] MCH (RBC) [Entitic mass] 27.2 pg 27.0 - 33.0 pg [facility] MCHC (RBC) [Mass/Vol] 32.4 g/dL 32.0 - 36.0 g/dL [facility] MCV (RBC) [Entitic vol] 84.1 fL 80.0 - 100.0 fL [facility] Monocytes (Bld) [#/Vol] 690 10*3/uL [facility] Monocytes/100 WBC (Bld) 10.3 % [facility] Neutrophils (Bld) [#/Vol] 4241 10*3/uL [facility] Neutrophils/100 WBC (Bld) 63.3 % [facility] Platelet mean volume (Bld) [Entitic vol] 11.7 fL 7.5 - 12.5 fL [facility] Platelets (Bld) [#/Vol] 313 10*3/uL [facility] RBC (Bld) [#/Vol] 4.59 10*6/uL [facility] WBC (Bld) [#/Vol] 6.7 10*3/uL [facility] CKon 06-19-2023 CK [Catalytic activity/Vol] 51 U/L 29 - 143 U/L [facility] No Panel Informationon 06-19 [facility] 36on 06-11-2023 36 Patient discharged h ome with [facility] and LORAINE. Copy of patients OPAT e-mailed to the [facility] liaisons. Spoke with patient and informed her of the follow up appt. Normal [facility] CARECOORDon 06-11-2023 [place] Patient Choice Patient Name: SIOBHAN HAAS Date of : 1960 Normal [facility] [id number] 06-08-[id number] [facility] notified of discharge home today. ZAMBRANO to see pt 06/09/2023 and will call to set up appointment. Pt made aware. No other needs voiced by pt. Normal [facility] CARECOORDon 06-08-2023 [place] Normal [facility] Nursing Noteon 06-08-2023 Nursing Note Normal [facility] Progress Noteon 06-08-2023 Progress Note Normal [facility] Progress Note Normal [facility] Progress Note Normal [facility] CARECOORDon 06-07-2023 [place] Normal [facility] Progress Noteon 06-07-2023 Progress Note Physical Therapy Att 15:05, pt declined Tx at this time. Stated she was released from PT despite encouragement to participate. Normal [facility] Progress Note Normal [facility] Progress Note Normal [facility] [id number] 06-06-2023 [id number] [facility] 36on 06-06-2023 36 Patient is currently admitted, Will need home care or facility discharge info. Will need notified of follow up appt with Dr. Maxwell on 07/11/2023 [facility] Bacteria identified Anaer cx Nom (Unsp spec)Ordered By: David Howard on 06-06-2023 Interpretation and review of laboratory results Normal [facility] Basic metabolic 1998 panelon 06-06-2023 Anion gap [Moles/Vol] 8 mmol/L 3 - 13 mmol/L [facility] Calcium [Mass/Vol] 8.9 mg/dL 8.4 - 10. 4 mg/dL [facility] Chloride [Moles/Vol] 102 mmol/L 98 - 10 7 mmol/L [facility] CO2 [Moles/Vol] 26 mmol/L 22 - 30 mmol/L [facility] Creatinine [Mass/Vol] 0.74 mg/dL 0.52 - 1.04 mg/dL [facility] GFR/1.73 sq M.predicted MDRD (S/P/Bld) [Vol rate/Area] - PINF [facility] Comment on above: Calculation based on the Chronic Kidney Disease Epidemiology Collaboration (CKD-EPI) equation refit without adjustment for race Glucose [Mass/Vol] 159 mg/dL High 70 - 100 mg/dL [facility] Interpretation and review of laboratory results Abnormal [facility] Potassium [Moles/Vol] 4.8 mmol/L 3.5 - 5.1 mmol/L [facility] Sodium [Moles/Vol] 136 mmol/L 135 - 145 mmol/L [facility] Urea nitrogen [Mass/Vol] 26 mg/dL High 7 - 17 mg/dL [facility] CARECOORDon 06-06-2023 [facility] [employer] V insur lucie authorization signature obtained and faxed for [place] approval. Normal [facility] Normal [facility] CBC panel Auto (Bld)Ordered By: Marycarmen Lino on 06-06-2023 Erythrocyte distribution width (RBC) [Ratio] 15.1 % High 11.5 - 14.5 % [facility] Hematocrit (Bld) [Volume fraction] 36.3 % 35.0 - 47.0 % [facility] Hemoglobin (Bld) [Mass/Vol] 11.7 g/dL 11.7 - 16.0 g/dL [facility] Interpretation and review of laboratory results Abnormal [facility] MCH (RBC) [Entitic mass] 27.4 pg 26.0 - 34.0 pg [facility] MCHC (RBC) [Mass/Vol] 32.3 % 32.0 - 36.0 % [facility] MCV (RBC) [Entitic vol] 84.7 fL 80.0 - 98.0 fL [facility] Platelet mean volume (Bld) [Entitic vol] 8.1 fL 7.4 - 12.4 fL [facility] Platelets (Bld) [#/Vol] 326 10*3/uL 140 - 440 10*3/uL [facility] RBC (Bld) [#/Vol] 4.28 10*6/uL 3.8 - 5.20 10*6/uL [facility] WBC (Bld) [#/Vol] 14.3 10*3/uL High 3.6 - 10.7 10*3/uL [facility] IDNon 06-06-2023 IDN Normal [facility] Laboratory - Microbiology an d Antimicrobial susceptibilityOrdered By: David Howard on 06-06-2023 Bacteria identified Anaer cx Nom (Unsp spec) No growth at 5 days [facility] Progress Noteon 06-06-2023 Progress Note Normal [facility] Progress Note Vancomycin therapy h as been discontinued by Cristian Maxwell on 06/06. Thank you for the consult. Pharmacy signing off for vancomycin dosing. Oj Thomason, [facility], . Date: 06/06/23 Time: 3:15 PM Normal [facility] Progress Note Normal [facility] Progress Note Normal [facility] Progress Note Normal [facility] Progress Note Normal [facility] Progress Note Normal [facility] Progress Note Normal [facility] Progress Note Patient places self on home pap unit Normal [facility] [id number] 06-05-2023 [id number] Normal [facility] Anesthesia Noteon 06-05-2023 Anesthesia Note Normal [facility] Anesthesia Note Normal [facility] Blood type and Crossmatch pa florin (Bld)on 06-05-2023 ABO group Nom (Bld) O [facility] Blood group antibody screen GEL Ql Negative [facility] D Ag Ql (RBC) Positive [facility] CARECOORDon 06-05-2023 [place] Plan for RTOR 06/05. T CC to follow. [facility] No Panel Informationon 06-05 Irene Aldridge MD 06/05/2023 10:53 AM PICC Insertion/Replacement Date/Time: 06/05/2023 10:51 AM Performed by: Shoaib Rolon APRN - DATA MINING ANALYST Authorized by: Irene Aldridge MD Consent: The indications, risks, benefits, alternatives to the procedure were explained to the patient/surrogate decision maker and their questions answered. Consent was obtained to proceed with the procedure. Timeout: Completed immediately prior to the start of the procedure which included verification of the correct patient, correct site and agreement on the procedure to be done. Indications: Indications: Lack of adequate PIV access Anesthetic: Local anesthetic used: lidocaine without epinephrine Procedure details: Preparation: Skin prepped with chlorhexidine Skin prep agent dried: Skin prep agent completely dried prior to procedure Sterile barriers: All five maximal sterile barriers used - gloves, gown, cap, mask and large sterile sheet Hand hygiene: Hand hygiene performed prior to central venous catheter insertion Sterile technique: Sterile technique maintained throughout procedure. Site prior to insertion: Ecchymosis Procedure type: Insertion Location: Right basilic Catheter type: Double lumen Catheter size: 5 Fr Lot #: [id number] Trimmed at (cm): 51 Inserted at (cm): 51 Ultrasound guidance: Yes Post-procedure: Post-procedure: Antimicrobial dressing applied and securement device Description/Findings: Flushes easily and blood returned Estimated blood loss: None Specify complication(s): No apparent complications Follow-up chest x-ray: Ordered [facility] Nursing Noteon 06-05-2023 Nursing Note Patient's son update d by RN at this time that Pt is doing well and will be returning to [address] Normal [facility] Op Noteon 06-05-2023 Op Note Normal [facility] Progress Noteon 06-05-2023 Progress Note Occupational Therapy OT orders received. Pt having surgery today. Will follow up post-op. Zoë Perdomo OTR/L [facility] Progress Note Physical Therapy PT orders received and chart reviewed. Per ortho note, s/p L AKA I&D with wound vac application on 05/29, rpt I&D wvac 05/31. RTOR for repeat I&D today 06/[address] Mercado. Will hold and attempt following surgery. Corry Vazquez PT [facility] Progress Note Normal [facility] XR CHEST 1 VIEWon 06-05-2023 XR CHEST 1 VIEW [facility] XR Chest Single viewon 06-05 No acute process. Report Dictated on Electronically Signed By: Joshua Pena DO Electronically Signed Date/Time: 06/05/2023 12:54 PM [facility] [employer] Patient Name: SIOBHAN MCINTOSH : 1960 Exam Date/Time: 06/05/2023 12:10 Procedure: XR CHEST 1 VIEW Ordering Provider: ALDRIDGE GWENDOLYN Reason For Exam: RUE PICC placment PORTABLE CHEST: INDICATION: PICC placement COMPARISON: 12/07/2022 Obtained at 1145 hours. A single portable AP radiograph of the chest was obtained. The heart is borderline in size. The mediastinal silhouette is normal. The lungs are clear. There are no effusions or infiltrates. There is no pleural thickening. The osseous structures are unremarkable. A PICC is present on the right with the tip of the catheter overlying the superior vena cava. [facility] Joshua Pena DO - 06/05/2023 Patient Name: SIOBHAN HAAS : 1960 Exam Date/Time: 06/05/2023 12:10 Procedure: XR CHEST 1 VIEW Ordering Provider: ALDRIDGE GWENDOLYN Reason For Exam: RUE PICC placment PORTABLE CHEST: INDICATION: PICC placement COMPARISON: 12/07/2022 Obtained at 1145 hours. A single portable AP radiograph of the chest was obtained. The heart is borderline in size. The mediastinal silhouette is normal. The lungs are clear. There are no effusions or infiltrates. There is no pleural thickening. The osseous structures are unremarkable. A PICC is present on the right with the tip of the catheter overlying the superior vena cava. IMPRESSION: No acute process. Report Dictated on Electronically Signed By: Joshua Pena DO Electronically Signed Date/Time: 06/05/2023 12:54 PM EDT [facility] Radiology Study observation (narrative) [facility] XR Chest Single viewOrdered By: Joshua Pena on 06-05-2023 [facility] Work Phone: Bacteria identified Aer cx N om (Unsp spec)Ordered By: Janeth Malave on 06-04-2023 Gram Stain Result No polymorphonuclear leukocytes seen [facility] Gram Stain Result No organisms seen [facility] Basic metabolic 1998 panelon 06-04-2023 Anion gap [Moles/Vol] 7 mmol/L 3 - 13 mmol/L [facility] Calcium [Mass/Vol] 8.3 mg/dL Low 8.4 - 10. 4 mg/dL [facility] Chloride [Moles/Vol] 105 mmol/L 98 - 10 7 mmol/L [facility] CO2 [Moles/Vol] 25 mmol/L 22 - 30 mmol/L [facility] Creatinine [Mass/Vol] 0.67 mg/dL 0.52 - 1.04 mg/dL [facility] GFR/1.73 sq M.predicted MDRD (S/P/Bld) [Vol rate/Area] - PINF [facility] Comment on above: Calculation based on the Chronic Kidney Disease Epidemiology Collaboration (CKD-EPI) equation refit without adjustment for race Glucose [Mass/Vol] 104 mg/dL High 70 - 100 mg/dL [facility] Interpretation and review of laboratory results Abnormal [facility] Potassium [Moles/Vol] 3.9 mmol/L 3.5 - 5.1 mmol/L [facility] Sodium [Moles/Vol] 137 mmol/L 135 - 145 mmol/L [facility] Urea nitrogen [Mass/Vol] 22 mg/dL High 7 - 17 mg/dL [facility] CBC panel Auto (Bld)Ordered By: Tariq Root on 06-04-2023 Erythrocyte distribution width (RBC) [Ratio] 15.2 % High 11.5 - 14.5 % [facility] Hematocrit (Bld) [Volume fraction] 35.2 % 35.0 - 47.0 % [facility] Hemoglobin (Bld) [Mass/Vol] 11.3 g/dL Low 11.7 - 16.0 g/dL [facility] Interpretation and review of laboratory results Abnormal [facility] MCH (RBC) [Entitic mass] 27.3 pg 26.0 - 34.0 pg [facility] MCHC (RBC) [Mass/Vol] 32.1 % 32.0 - 36.0 % [facility] MCV (RBC) [Entitic vol] 85.1 fL 80.0 - 98.0 fL [facility] Platelet mean volume (Bld) [Entitic vol] 7.9 fL 7.4 - 12.4 fL [facility] Platelets (Bld) [#/Vol] 317 10*3/uL 140 - 440 10*3/uL [facility] RBC (Bld) [#/Vol] 4.13 10*6/uL 3.8 - 5.20 10*6/uL [facility] WBC (Bld) [#/Vol] 9.4 10*3/uL 3.6 - 10.7 10*3/uL [facility] Laboratory - Microbiology an d Antimicrobial susceptibilityOrdered By: Janeth Malave on 06-04-2023 Bacteria identified Aer cx Nom (Unsp spec) Rare skin pierce present S [facility] Nursing Noteon 06-04-2023 Nursing Note Normal [facility] Progress Noteon 06-04-2023 Progress Note Normal [facility] Progress Note Normal [facility] Bacteria identified Anaer cx Nom (Unsp spec)Ordered By: Michael Marroquin on 06-03-2023 Interpretation and review of laboratory results Normal [facility] Basic metabolic 1998 panelon 06-03-2023 Anion gap [Moles/Vol] 9 mmol/L 3 - 13 mmol/L [facility] Calcium [Mass/Vol] 8.5 mg/dL 8.4 - 10. 4 mg/dL [facility] Chloride [Moles/Vol] 105 mmol/L 98 - 10 7 mmol/L [facility] CO2 [Moles/Vol] 24 mmol/L 22 - 30 mmol/L [facility] Creatinine [Mass/Vol] 0.68 mg/dL 0.52 - 1.04 mg/dL [facility] GFR/1.73 sq M.predicted MDRD (S/P/Bld) [Vol rate/Area] - PINF [facility] Comment on above: Calculation based on the Chronic Kidney Disease Epidemiology Collaboration (CKD-EPI) equation refit without adjustment for race Glucose [Mass/Vol] 89 mg/dL 70 - 100 mg/dL [facility] Interpretation and review of laboratory results Abnormal [facility] Potassium [Moles/Vol] 4.1 mmol/L 3.5 - 5.1 mmol/L [facility] Sodium [Moles/Vol] 138 mmol/L 135 - 145 mmol/L [facility] Urea nitrogen [Mass/Vol] 21 mg/dL High 7 - 17 mg/dL [facility] CBC panel Auto (Bld)Ordered By: Al Shields on 06-03-2023 Erythrocyte distribution width (RBC) [Ratio] 15.1 % High 11.5 - 14.5 % [facility] Hematocrit (Bld) [Volume fraction] 36.6 % 35.0 - 47.0 % [facility] Hemoglobin (Bld) [Mass/Vol] 11.8 g/dL 11.7 - 16.0 g/dL [facility] Interpretation and review of laboratory results Abnormal [facility] MCH (RBC) [Entitic mass] 26.9 pg 26.0 - 34.0 pg [facility] MCHC (RBC) [Mass/Vol] 32.2 % 32.0 - 36.0 % [facility] MCV (RBC) [Entitic vol] 83.5 fL 80.0 - 98.0 fL [facility] Platelet mean volume (Bld) [Entitic vol] 8.1 fL 7.4 - 12.4 fL [facility] Platelets (Bld) [#/Vol] 338 10*3/uL 140 - 440 10*3/uL [facility] RBC (Bld) [#/Vol] 4.38 10*6/uL 3.8 - 5.20 10*6/uL [facility] WBC (Bld) [#/Vol] 9.7 10*3/uL 3.6 - 10.7 10*3/uL [facility] Laboratory - Microbiology an d Antimicrobial susceptibilityOrdered By: Michael Marroquin on 06-03-2023 Bacteria identified Anaer cx Nom (Unsp spec) No growth at 5 days [facility] Progress Noteon 06-03-2023 Progress Note Normal [facility] Progress Note Normal [facility] Progress Note Normal [facility] Basic metabolic 1998 panelon 06-02-2023 Anion gap [Moles/Vol] 7 mmol/L 3 - 13 mmol/L [facility] Calcium [Mass/Vol] 8.8 mg/dL 8.4 - 10. 4 mg/dL [facility] Chloride [Moles/Vol] 105 mmol/L 98 - 10 7 mmol/L [facility] CO2 [Moles/Vol] 24 mmol/L 22 - 30 mmol/L [facility] Creatinine [Mass/Vol] 0.67 mg/dL 0.52 - 1.04 mg/dL [facility] GFR/1.73 sq M.predicted MDRD (S/P/Bld) [Vol rate/Area] - [facility] Comment on above: Calculation based on the Chronic Kidney Disease Epidemiology Collaboration (CKD-EPI) equation refit without adjustment for race Glucose [Mass/Vol] 196 mg/dL High 70 - 100 mg/dL [facility] Interpretation and review of laboratory results Abnormal [facility] Potassium [Moles/Vol] 4.4 mmol/L 3.5 - 5.1 mmol/L [facility] Sodium [Moles/Vol] 137 mmol/L 135 - 145 mmol/L [facility] Urea nitrogen [Mass/Vol] 24 mg/dL High 7 - 17 mg/dL [facility] CBC panel Auto (Bld)Ordered By: Gail Lo on 06-02-2023 Erythrocyte distribution width (RBC) [Ratio] 15.2 % High 11.5 - 14.5 % [facility] Hematocrit (Bld) [Volume fraction] 36.8 % 35.0 - 47.0 % [facility] Hemoglobin (Bld) [Mass/Vol] 11.7 g/dL 11.7 - 16.0 g/dL [facility] Interpretation and review of laboratory results Abnormal [facility] MCH (RBC) [Entitic mass] 27.4 pg 26.0 - 34.0 pg [facility] MCHC (RBC) [Mass/Vol] 31.9 % Low 32.0 - 36.0 % [facility] MCV (RBC) [Entitic vol] 86.0 fL 80.0 - 98.0 fL [facility] Platelet mean volume (Bld) [Entitic vol] 8.8 fL 7.4 - 12.4 fL [facility] Platelets (Bld) [#/Vol] 177 10*3/uL 140 - 440 10*3/uL [facility] RBC (Bld) [#/Vol] 4.28 10*6/uL 3.8 - 5.20 10*6/uL [facility] WBC (Bld) [#/Vol] 10.2 10*3/uL 3.6 - 10.7 10*3/uL [facility] Creatinine [Mass/Vol]on GFR/1.73 sq M.predicted MDRD (S/P/Bld) [Vol rate/Area] - [facility] Comment on above: Calculation based on the Chronic Kidney Disease Epidemiology Collaboration (CKD-EPI) equation refit without adjustment for race Interpretation and review of laboratory results Normal [facility] Laboratory - Chemistry and C hemistry - challengeon 06-02-2023 Creatinine [Mass/Vol] 0.73 mg/dL 0.52 - 1.04 mg/dL [facility] - Drug toxicology on 06-02-2023 Vancomycin [Mass/Vol] 18.4 ug/mL 15.0 - 20.0 ug/mL [facility] No Panel Informationon 06-02 Interpretation and review of laboratory results Normal [facility] Progress Noteon 06-02-2023 Progress Note Normal [facility] Progress Note Normal [facility] Progress Note Normal [facility] Progress Note Normal [facility] Bacteria identified Aer cx N om (Unsp spec)on 06-01-2023 Gram Stain Result Many Polymorphonucle ar leukocytes per low power field Abnormal [facility] Gram Stain Result Positive Abnormal [facility] Interpretation and review of laboratory results Abnormal [facility] CARECOORDon 06-01-2023 CARECOORD Normal [facility] Creatinine [Mass/Vol]on GFR/1.73 sq M.predicted MDRD (S/P/Bld) [Vol rate/Area] - [facility] Comment on above: Calculation based on the Chronic Kidney Disease Epidemiology Collaboration (CKD-EPI) equation refit without adjustment for race Interpretation and review of laboratory results Normal [facility] - Chemistry and C hemistry - challengeon 06-01-2023 Creatinine [Mass/Vol] 0.63 mg/dL 0.52 - 1.04 mg/dL [facility] - Drug toxicology on 06-01-2023 Vancomycin [Mass/Vol] 10.9 ug/mL Low 15.0 - 20.0 ug/mL [facility] - Microbiology an d Antimicrobial susceptibilityon 06-01-2023 Bacteria identified Aer cx Nom (Unsp spec) Rare skin pierce present S [facility] No Panel Informationon 06-01 Interpretation and review of laboratory results Abnormal [facility] Progress Noteon 06-01-2023 Progress Note Normal [facility] Progress Note Normal [facility] Progress Note Normal [facility] Progress Note Normal [facility] Progress Note Normal [facility] [id number] 05-31-2023 [id number] Normal [facility] [id number] Normal [facility] [id number] 05-31-2023 [id number] Normal [facility] Anesthesia Noteon 05-31-2023 Anesthesia Note Normal [facility] Anesthesia Note Normal [facility] Anesthesia Note Normal [facility] Blood type and Crossmatch pa florin (Bld)on 05-31-2023 ABO group Nom (Bld) O [facility] Blood group antibody screen GEL Ql Negative [facility] D Ag Ql (RBC) Positive [facility] CARECOORDon 05-31-2023 CARECOORD Normal [facility] Nursing Noteon 05-31-2023 Nursing Note Report called to Grisel montes de oca RN on h6 no questions asked. Normal [facility] Nursing Note Patient family/visit or updated by RN at this time via phone call Normal [facility] Op Noteon 05-31-2023 Op Note Normal [facility] Progress Noteon 05-31-2023 Progress Note Normal [facility] Progress Note Normal [facility] Progress Note Normal [facility] Progress Note Normal [facility] Progress Note Normal [facility] Basic metabolic 1998 panelon 05-30-2023 Anion gap [Moles/Vol] 9 mmol/L 3 - 13 mmol/L [facility] Calcium [Mass/Vol] 8.8 mg/dL 8.4 - 10. 4 mg/dL [facility] Chloride [Moles/Vol] 100 mmol/L 98 - 10 7 mmol/L [facility] CO2 [Moles/Vol] 26 mmol/L 22 - 30 mmol/L [facility] Creatinine [Mass/Vol] 0.76 mg/dL 0.52 - 1.04 mg/dL [facility] GFR/1.73 sq M.predicted MDRD (S/P/Bld) [Vol rate/Area] 88.2 mL/min/{1.73_m2} - PINF [facility] Comment on above: Calculation based on the Chronic Kidney Disease Epidemiology Collaboration (CKD-EPI) equation refit without adjustment for race Glucose [Mass/Vol] 220 mg/dL High 70 - 100 mg/dL [facility] Interpretation and review of laboratory results Abnormal [facility] Potassium [Moles/Vol] 4.4 mmol/L 3.5 - 5.1 mmol/L [facility] Sodium [Moles/Vol] 135 mmol/L 135 - 145 mmol/L [facility] Urea nitrogen [Mass/Vol] 15 mg/dL 7 - 17 mg/dL [facility] CARECOORDon 05-30-2023 CARECOORD Normal [facility] CBC W Auto Differential pane l (Bld)Ordered By: Renea Painter on 05-30-2023 Basophils (Bld) [#/Vol] 0.0 10*3/uL 0.0 - 0.2 10*3/uL [facility] Basophils/100 WBC (Bld) 0.3 % 0.0 - 2.0 % [facility] Eosinophils (Bld) [#/Vol] 0.0 10*3/uL 0.0 - 0.5 10*3/uL [facility] Eosinophils/100 WBC (Bld) 0.0 % Low 1.0 - 6.0 % [facility] Erythrocyte distribution width (RBC) [Ratio] 14.5 % 11.5 - 14.5 % [facility] Hematocrit (Bld) [Volume fraction] 36.7 % 35.0 - 47.0 % [facility] Hemoglobin (Bld) [Mass/Vol] 11.7 g/dL 11.7 - 16.0 g/dL [facility] Interpretation and review of laboratory results Abnormal [facility] Lymphocytes (Bld) [#/Vol] 0.7 10*3/uL Low 1.0 - 4.3 10*3/uL [facility] Lymphocytes/100 WBC (Bld) 10.4 % Low 20.0 - 40.0 % [facility] MCH (RBC) [Entitic mass] 27.4 pg 26.0 - 34.0 pg [facility] MCHC (RBC) [Mass/Vol] 32.0 % 32.0 - 36.0 % [facility] MCV (RBC) [Entitic vol] 85.5 fL 80.0 - 98.0 fL [facility] Monocytes (Bld) [#/Vol] 0.2 10*3/uL 0.0 - 0.8 10*3/uL [facility] Monocytes/100 WBC (Bld) 3.2 % 2.0 - 10.0 % [facility] Neutrophils (Bld) [#/Vol] 6.0 10*3/uL 1.8 - 7.0 10*3/uL [facility] Neutrophils/100 WBC (Bld) 86.1 % High 40.0 - 80.0 % [facility] Nucleated RBC/100 WBC (Bld) [Ratio] 0.1 % [facility] Platelet mean volume (Bld) [Entitic vol] 9.0 fL 7.4 - 12.4 fL [facility] Platelets (Bld) [#/Vol] 293 10*3/uL 140 - 440 10*3/uL [facility] RBC (Bld) [#/Vol] 4.29 10*6/uL 3.8 - 5.20 10*6/uL [facility] WBC (Bld) [#/Vol] 6.9 10*3/uL 3.6 - 10.7 10*3/uL [facility] Consulton 05-30-2023 Consult Normal [facility] Consult Normal [facility] Consult Normal [facility] Fungus identified Fungus sta in Nom (Unsp spec)Ordered By: Isabel Zelaya on 05-30-2023 Calcofluor White Stain Result No fungal elements seen [facility] Reference Range: No fungal elements seen [facility] Laboratory - Coagulationon 0 05-30-2023 PT Coag (Bld) [Time] 10.4 s 9.0 - 1 2.0 s [facility] PT Coag (Bld) [Time]on 05-30 INR Coag (PPP) [Relative time] 1.0 {INR} 0.9 - 1.1 [facility] Comment on above: Recommended Anticoag ulant Therapy: SEE BELOW ----- INR of 2.0 - 3.0 : - Prophylaxis of Venous Thrombosis (high-risk surgery) - Treatment of Venous Thrombosis - Treatment of Pulmonary Embolism (Includes tissue heart valves, Acute Myocardial Infarction to prevent systemic embolism, Valvular Heart Disease, and Atrial Fibrillation) ----- INR of 2.5 - 3.5 : - Mechanical Prosthetic Valves (high risk) - If oral anticoagulant therapy is used to prevent Myocardial Infarction Interpretation and review of laboratory results Normal [facility] Progress Noteon 05-30-2023 Progress Note Normal [facility] Progress Note Normal [facility] Progress Note Normal [facility] Anesthesia Noteon 05-29-2023 Anesthesia Note Normal [facility] Consulton 05-29-2023 Consult Normal [facility] Op Noteon 05-29-2023 Op Note Normal [facility] 36on 05-28-2023 36 Normal [facility] 36 Pt schd w/ Jennifer [facility] 36 Spoke with deb Santamaria to bring patient in today, but we do not have supplies to change the wound vac. Please schedule with Jennifer any available time today.Tried to call patient back , but I got her vm. Normal [facility] 36 Normal [facility] Progress Noteon 05-28-2023 Progress Note [facility] 36on 05-25-2023 36 Spoke with patient m beckie her aware that we are sending in an antibiotic. Patient requested refill of pain medication. 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, initial encounter ([facility]) [S36.112A] Performed By: #### L [id number] ####Indirect Sales Exec: ANETTE SINGER ([id number])[address] Anesthesia Noteon 05-22-2023 Anesthesia Note Normal [facility] Anesthesia Note Normal [facility] FUNGAL CULTUREon 05-22-2023 FUNGAL CULTURE [facility] Comment on above: Order Comment: Pre-o p diagnosis: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 Normal [facility] Nursing Note Patient ready for discharge [facility] Op Noteon 05-22-2023 Op Note [facility] Progress Noteon 05-22-2023 Progress Note Could we send in a s cript for Bactrim DS BID for 14 days, Thanks [facility] 36on 05-21-2023 36 [facility] Progress Noteon 05-21-2023 Progress Note [facility] 36on 05-18-2023 36 Spoke with patient. She states she is still having large amounts of thin red drainage from her incision. She states while we were talking it created a pool of blood on the floor. [facility] 36 Name of Caller: Hollie rivera Relationship to Patient: Self Symptoms/Concerns: Pt is calling because she is still having bright red blood at her incision site. Please advise. Provider: Jess Practice Name: Ortho - [facility] Progress Noteon 05-18-2023 Progress Note [facility] Progress Noteon 05-11-2023 Progress Note [facility] 36on 05-10-2023 36 Scheduled with [facility] 36 Spoke with patient. She would like to come tomorrow in [place]. She will be there at 2pm [facility] 36 We can do dressing c hange on Sunday - I'm at [place] this Sunday if she wants to come there [facility] 36 [facility] 36 [facility] [id number] 05-08-2023 [id number] [facility] Anesthesia Noteon 05-08-2023 Anesthesia Note [facility] Nursing Noteon 05-08-2023 Nursing Note Discharge informatio n given to the patient. Patient and family verbalized understanding of information. All questions were answered before discharge. Patient denies dizziness or nausea. Tolerating PO fluids and crackers. Vital signs are stable. [facility] Nursing Note Family/visitor at be dside with patient. [facility] Nursing Note Patient family/visit or updated by RN at this time. [facility] Op Noteon 05-08-2023 Op Note [facility] 36on 05-07-2023 36 No auth required for OP surgery ref#[id number] [facility] 36 [facility] 36 Patient scheduled fo r surgery tomorrow at [facility]. [facility] Anesthesia Noteon 05-07-2023 Anesthesia Note [facility] Progress Noteon 05-07-2023 Progress Note [facility] 36on 05-03-2023 36 Scheduled for 1:30 Sunday [facility] 36 Yes OK for Sunday [facility] 36 Her next appt is 8.1 4.23. she does state it is more painful Move her to [place] Sunday? [place] [address] Called and spoke to her. She is sending in a clinical picture for review [place] [address] Name of Caller: Hollie rivera Relationship to Patient: Self Symptoms/Concerns: Incision Bleeding, DOS 12/05/2022, pt is in a lot of pain Provider: Practice Name: Ortho [facility] XR CHEST 2 VIEWSon XR CHEST 2 VIEWS ORIGINAL HISTORY: Short of breath, chest pain COMPARISON: 26 July 2022 FINDINGS: The study is mildly limited by habitus. An epidural lead is unchanged. The lungs are clear. The cardiac silhouette is within normal size limits. The pulmonary vasculature is unremarkable in appearance. IMPRESSION: Mildly limited examination, otherwise clear lungs. Interpreted by: Samson Callaway MD Preliminary Report By: Samson Callaway MD Electronically signed By Samson Callaway MD Dictated Date: 05/03/2023 3:09:29 PM Prelim Date: 05/03/2023 3:10:17 PM Sign Date: 05/03/2023 3:10:17 PM Ordering Provider: OJ MADDOX [facility] ([place]) .Auto Diffon 05-02-2023 Basophil, Absolute 0.1 10 3/mcL Normal 0.0-0.2 [facility] ([place]) Comment on above: Performed By: #### C RP, CBC, ADIFF, GFR, CMP, ANEU, PBNP #### [address] [address] Basophils/100 WBC (Bld) 0.4 % Normal 0.0-2.5 [facility] ([place]) Comment on above: Performed By: #### C RP, CBC, ADIFF, GFR, CMP, ANEU, PBNP #### [address] [address] Eosinophil, Absolute 0.0 10 3/mcL Normal 0.0-0.4 [facility] ([place]) Comment on above: Performed By: #### C RP, CBC, ADIFF, GFR, CMP, ANEU, PBNP #### [address] [address] Eosinophils/100 WBC (Bld) 0.0 % Normal 0.0-7.0 [facility] ([place]) Comment on above: Performed By: #### C RP, CBC, ADIFF, GFR, CMP, ANEU, PBNP #### [address] [address] Lymphocyte, Absolute 1.3 10 3/mcL Normal 0.8-3.9 [facility] ([place]) Comment on above: Performed By: #### C RP, CBC, ADIFF, GFR, CMP, ANEU, PBNP #### [address] [address] Lymphocytes/100 WBC (Bld) 9.8 % Low 10.0-50.0 [facility] ([place]) Comment on above: Performed By: #### C RP, CBC, ADIFF, GFR, CMP, ANEU, PBNP #### [address] [address] Monocyte, Absolute 0.9 10 3/mcL Normal 0.2-1.0 [facility] ([place]) Comment on above: Performed By: #### C RP, CBC, ADIFF, GFR, CMP, ANEU, PBNP #### [address] [address] Monocytes/100 WBC (Bld) 7.0 % Normal 1.7-13.0 [facility] ([place]) Comment on above: Performed By: #### C RP, CBC, ADIFF, GFR, CMP, ANEU, PBNP #### [address] [address] Neutrophils/100 WBC (Bld) 82.8 % High 37.0-80.0 [facility] ([place]) Comment on above: Performed By: #### C RP, CBC, ADIFF, GFR, CMP, ANEU, PBNP #### [address] [address] .GFRon 05-02-2023 GFR 64 ml/min/1.73sqm Normal [facility] ([place]) Comment on above: Result Comment: GFR Population mean for , Non- Americans Ages 20-29 = 116 mL/min/1.73 sq.m. Ages 30-39 = 107 mL/min/1.73 sq.m. Ages 40-49 = 99 mL/min/1.73 sq.m. Ages 50-59 = 93 mL/min/1.73 sq.m. Ages 60-69 = 85 mL/min/1.73 sq.m. Ages 70+ = 75 mL/min/1.73 sq.m. Chronic Kidney Disease: Less than 60 mL/min/1.73 square meters End Stage Renal Disease: Less than 15 mL/min/1.73 square meters Performed By: #### C RP, CBC, ADIFF, GFR, CMP, ANEU, PBNP #### [address] [address] GFR Non- 53 ml/min/1.73sqm Normal [facility] ([place]) Comment on above: Result Comment: GFR Population mean for , Non- Americans Ages 20-29 = 116 mL/min/1.73 sq.m. Ages 30-39 = 107 mL/min/1.73 sq.m. Ages 40-49 = 99 mL/min/1.73 sq.m. Ages 50-59 = 93 mL/min/1.73 sq.m. Ages 60-69 = 85 mL/min/1.73 sq.m. Ages 70+ = 75 mL/min/1.73 sq.m. Chronic Kidney Disease: Less than 60 mL/min/1.73 square meters End Stage Renal Disease: Less than 15 mL/min/1.73 square meters Performed By: #### C RP, CBC, ADIFF, GFR, CMP, ANEU, PBNP #### [address] [address] .NEUABSon 05-02-2023 Neutrophil, Absolute 11.1 10 3/mcL High 2.9-6.2 A Counts include 234 beds at the [facility] ([place]) Comment on above: Performed By: #### C RP, CBC, ADIFF, GFR, CMP, ANEU, PBNP #### [address] [address] CBCon 05-02-2023 Erythrocyte distribution width (RBC) [Ratio] 14.8 % High 11.5-14.5 [facility] ([place]) Comment on above: Performed By: #### C RP, CBC, ADIFF, GFR, CMP, ANEU, PBNP #### [place] [address] Hematocrit (Bld) [Volume fraction] 39.1 % Normal 37.0-47.0 [facility] ([place]) Comment on above: Performed By: #### C RP, CBC, ADIFF, GFR, CMP, ANEU, PBNP #### [place] [id number] Hgb 12.6 G/dL Normal 12.0-16.0 [facility] ([place]) Comment on above: Performed By: #### C RP, CBC, ADIFF, GFR, CMP, ANEU, PBNP #### [place] [id number] MCH (RBC) [Entitic mass] 27.4 pg Normal 27.0-31.2 [facility] ([place]) Comment on above: Performed By: #### C RP, CBC, ADIFF, GFR, CMP, ANEU, PBNP #### [place] [id number] MCHC 32.3 G/dL Low 33.0-37.0 [facility] ([place]) Comment on above: Performed By: #### C RP, CBC, ADIFF, GFR, CMP, ANEU, PBNP #### [address] [address] MCV (RBC) [Entitic vol] 84.9 fL Normal 80.0-94.0 [facility] ([place]) Comment on above: Performed By: #### C RP, CBC, ADIFF, GFR, CMP, ANEU, PBNP #### [address] [address] Platelet 260 10 3/mcL Normal 130-400 [facility] ([place]) Comment on above: Performed By: #### C RP, CBC, ADIFF, GFR, CMP, ANEU, PBNP #### [address] [address] Platelet mean volume (Bld) [Entitic vol] 9.2 fL Normal 7.4-10.4 [facility] ([place]) Comment on above: Performed By: #### C RP, CBC, ADIFF, GFR, CMP, ANEU, PBNP #### [address] [address] RBC 4.60 10 6/mcL Normal 4.20-5.40 [facility] ([place]) Comment on above: Performed By: #### C RP, CBC, ADIFF, GFR, CMP, ANEU, PBNP #### [address] [address] WBC 13.5 10 3/mcL High 4.6-10.8 [facility] ([place]) Comment on above: Performed By: #### C RP, CBC, ADIFF, GFR, CMP, ANEU, PBNP #### [address] [address] CMPon 05-02-2023 Albumin Level 3.5 G/dL Normal 3.4-4.8 [facility] ([place]) Comment on above: Performed By: #### C RP, CBC, ADIFF, GFR, CMP, ANEU, PBNP #### [address] [address] Albumin/Globulin [Mass ratio] 0.9 {ratio} Low 1.1-2.5 [facility] ([place]) Comment on above: Performed By: #### C RP, CBC, ADIFF, GFR, CMP, ANEU, PBNP #### [address] [address] ALP [Catalytic activity/Vol] 157 U/L High 40-135 [facility] ([place]) Comment on above: Performed By: #### C RP, CBC, ADIFF, GFR, CMP, ANEU, PBNP #### [address] [address] ALT [Catalytic activity/Vol] 19 U/L Normal 14-59 [facility] ([place]) Comment on above: Performed By: #### C RP, CBC, ADIFF, GFR, CMP, ANEU, PBNP #### [address] [address] AST [Catalytic activity/Vol] 13 U/L Normal 10-40 [facility] ([place]) Comment on above: Performed By: #### C RP, CBC, ADIFF, GFR, CMP, ANEU, PBNP #### [address] [address] Bili Total 0.2 mg/dL Normal 0.2-1.0 [facility] ([place]) Comment on above: Result Comment: Use of this assay is not recommended for patients undergoing treatment with eltrombopag due to the potential for falsely elevated results. Performed By: #### C RP, CBC, ADIFF, GFR, CMP, ANEU, PBNP #### [address] [address] BUN/Creatinine Ratio 17 ratio Normal 7-27 [facility] ([place]) Comment on above: Performed By: #### C RP, CBC, ADIFF, GFR, CMP, ANEU, PBNP #### [address] [address] Calcium [Mass/Vol] 9.2 mg/dL Normal 8.4-10.2 [facility] ([place]) Comment on above: Performed By: #### C RP, CBC, ADIFF, GFR, CMP, ANEU, PBNP #### [address] [address] Chloride [Moles/Vol] 102 mmol/L Normal 98-107 [facility] ([place]) Comment on above: Performed By: #### C RP, CBC, ADIFF, GFR, CMP, ANEU, PBNP #### [address] [address] CO2 [Moles/Vol] 25 mmol/L Normal 23-31 [facility] ([place]) Comment on above: Performed By: #### C RP, CBC, ADIFF, GFR, CMP, ANEU, PBNP #### [address] [address] Creatinine [Mass/Vol] 1.05 mg/dL High 0.55-1.02 [facility] ([place]) Comment on above: Performed By: #### C RP, CBC, ADIFF, GFR, CMP, ANEU, PBNP #### [address] [address] Electrolyte Balance 10.0 mEq/L Normal 4.0-15.0 [facility] ([place]) Comment on above: Performed By: #### C RP, CBC, ADIFF, GFR, CMP, ANEU, PBNP #### [address] [address] Globulin 4.0 G/dL Normal [facility] ([place]) Comment on above: Performed By: #### C RP, CBC, ADIFF, GFR, CMP, ANEU, PBNP #### [address] [address] Glucose [Mass/Vol] 176 mg/dL High 80-115 [facility] ([place]) Comment on above: Performed By: #### C RP, CBC, ADIFF, GFR, CMP, ANEU, PBNP #### [address] [address] Potassium [Moles/Vol] 3.8 mmol/L Normal 3.5-5.1 [facility] ([place]) Comment on above: Performed By: #### C RP, CBC, ADIFF, GFR, CMP, ANEU, PBNP #### [address] [address] Sodium [Moles/Vol] 137 mmol/L Normal 136-145 [facility] ([place]) Comment on above: Performed By: #### C RP, CBC, ADIFF, GFR, CMP, ANEU, PBNP #### [place] [id number] [place], [place] [address] Total Protein 7.5 G/dL Normal 6.4-8.2 [facility] ([place]) Comment on above: Performed By: #### C RP, CBC, ADIFF, GFR, CMP, ANEU, PBNP #### [place] [id number] [place], [place] [address] Urea nitrogen [Mass/Vol] 18 mg/dL Normal 7-18 [facility] ([place]) Comment on above: Performed By: #### C RP, CBC, ADIFF, GFR, CMP, ANEU, PBNP #### [address] [address] CRPon 05-02-2023 C-Reactive Protein 0.8 mg/dL High 0.0-0.3 [facility] ([place]) Comment on above: Performed By: #### C RP, CBC, ADIFF, GFR, CMP, ANEU, PBNP #### [address] [address] LABORATORYOrdered By: SYSTEM SYSTEM on 05-02-2023 Albumin BCP dye [Mass/Vol] 3.5 G/dL Invalid Interpretation Code 3.4 - 4.8 G/dL AO ADM SS Albumin/Globulin [Mass ratio] 0.9 {ratio} Invalid Interpretation Code 1.1 - 2.5 ratio AO ADM SS ALP [Catalytic activity/Vol] 157 U/L Invalid Interpretation Code 40 - 135 U/L AO ADM SS ALT With P-5'-P [Catalytic activity/Vol] 19 U/L Invalid Interpretation Code 14 - 59 U/L AO ADM SS AST With P-5'-P [Catalytic activity/Vol] 13 U/L Invalid Interpretation Code 10 - 40 U/L AO ADM SS Basophil, Absolute 0.1 103/mcL Invalid Interpretation Code 0.0 - 0.2 10^3/mcL AO Workflow SS Basophils/100 WBC (Bld) 0.4 % Invalid Interpretation Code 0.0 - 2.5 % AO Workflow SS Bilirubin [Mass/Vol] 0.2 mg/dL Invalid Interpretation Code 0.2 - 1.0 mg/dL AO ADM SS Comment on above: Interpretive Data: U se of this assay is not recommended for patients undergoing treatment with eltrombopag due to the potential for falsely elevated results. Calcium [Mass/Vol] 9.2 mg/dL Invalid Interpretation Code 8.4 - 10.2 mg/dL AO ADM SS Chloride [Moles/Vol] 102 mmol/L Invalid Interpretation Code 98 - 107 mmol/L AO ADM SS CO2 [Moles/Vol] 25 mmol/L Invalid Interpretation Code 23 - 31 mmol/L AO ADM SS Creatinine [Mass/Vol] 1.05 mg/dL Invalid Interpretation Code 0.55 - 1.02 mg/dL AO ADM SS CRP [Mass/Vol] 0.8 mg/dL Invalid Interpretation Code 0.0 - 0.3 mg/dL AO ADM SS Electrolyte Balance 10.0 mEq/L Invalid Interpretation Code 4.0 - 15.0 mEq/L AO ADM SS Eosinophil, Absolute 0.0 103/mcL Invalid Interpretation Code 0.0 - 0.4 10^3/mcL AO Workflow SS Eosinophils/100 WBC (Bld) 0.0 % Invalid Interpretation Code 0.0 - 7.0 % AO Workflow SS Erythrocyte distribution width (RBC) [Ratio] 14.8 % Invalid Interpretation Code 11.5 - 14.5 % AO Workflow SS GFR/1.73 sq M.predicted among blacks MDRD (S/P/Bld) [Vol rate/Area] 64 ml/min/1.73sqm Invalid Interpretation Code AO Chemistry S Comment on above: Interpretive Data: GFR Population mean for , Non- Americans Ages 20-29 = 116 mL/min/1.73 sq.m. Ages 30-39 = 107 mL/min/1.73 sq.m. Ages 40-49 = 99 mL/min/1.73 sq.m. Ages 50-59 = 93 mL/min/1.73 sq.m. Ages 60-69 = 85 mL/min/1.73 sq.m. Ages 70+ = 75 mL/min/1.73 sq.m. Chronic Kidney Disease: Less than 60 mL/min/1.73 square meters End Stage Renal Disease: Less than 15 mL/min/1.73 square meters GFR/1.73 sq M.predicted among non-blacks MDRD (S/P/Bld) [Vol rate/Area] 53 ml/min/1.73sqm Invalid Interpretation Code AO Chemistry S Comment on above: Interpretive Data: GFR Population mean for , Non- Americans Ages 20-29 = 116 mL/min/1.73 sq.m. Ages 30-39 = 107 mL/min/1.73 sq.m. Ages 40-49 = 99 mL/min/1.73 sq.m. Ages 50-59 = 93 mL/min/1.73 sq.m. Ages 60-69 = 85 mL/min/1.73 sq.m. Ages 70+ = 75 mL/min/1.73 sq.m. Chronic Kidney Disease: Less than 60 mL/min/1.73 square meters End Stage Renal Disease: Less than 15 mL/min/1.73 square meters Globulin 4.0 G/dL Invalid Interpretation Code AO ADM SS Glucose [Mass/Vol] 176 mg/dL Invalid Interpretation Code 80 - 115 mg/dL AO ADM SS Hematocrit (Bld) [Volume fraction] 39.1 % Invalid Interpretation Code 37.0 - 47.0 % AO Workflow SS Hemoglobin (Bld) [Mass/Vol] 12.6 G/dL Invalid Interpretation Code 12.0 - 16.0 G/dL AO Workflow SS Lymphocyte, Absolute 1.3 103/mcL Invalid Interpretation Code 0.8 - 3.9 10^3/mcL AO Workflow SS Lymphocytes/100 WBC (Bld) 9.8 % Invalid Interpretation Code 10.0 - 50.0 % AO Workflow SS MCH (RBC) [Entitic mass] 27.4 pg Invalid Interpretation Code 27.0 - 31.2 pg AO Workflow SS MCHC 32.3 G/dL Invalid Interpretation Code 33.0 - 37.0 G/dL AO Workflow SS MCV (RBC) [Entitic vol] 84.9 fL Invalid Interpretation Code 80.0 - 94.0 fL AO Workflow SS Monocyte, Absolute 0.9 103/mcL Invalid Interpretation Code 0.2 - 1.0 10^3/mcL AO Workflow SS Monocytes/100 WBC (Bld) 7.0 % Invalid Interpretation Code 1.7 - 13.0 % AO Workflow SS Natriuretic peptide.B prohormone N-Terminal [Mass/Vol] 261 pg/mL Invalid Interpretation Code 0 - 125 pg/mL AO ADM SS Comment on above: Interpretive Data: N T-proBNP results of less than 300 pg/mL effectively rules out acute congestive heart failure with 99% negative predictive value. Neutrophil, Absolute 11.1 103/mcL Invalid Interpretation Code 2.9 - 6.2 10^3/mcL AO Workflow SS Neutrophils/100 WBC (Bld) 82.8 % Invalid Interpretation Code 37.0 - 80.0 % AO Workflow SS Platelet mean volume (Bld) [Entitic vol] 9.2 fL Invalid Interpretation Code 7.4 - 10.4 fL AO Workflow SS Platelets (Bld) [#/Vol] 260 103/mcL Invalid Interpretation Code 130 - 400 10^3/mcL AO Workflow SS Potassium [Moles/Vol] 3.8 mmol/L Invalid Interpretation Code 3.5 - 5.1 mmol/L AO ADM SS Protein [Mass/Vol] 7.5 G/dL Invalid Interpretation Code 6.4 - 8.2 G/dL AO ADM SS RBC (Bld) [#/Vol] 4.60 106/mcL Invalid Interpretation Code 4.20 - 5.40 10^6/mcL AO Workflow SS Sodium [Moles/Vol] 137 mmol/L Invalid Interpretation Code 136 - 145 mmol/L AO ADM SS Urea nitrogen [Mass/Vol] 18 mg/dL Invalid Interpretation Code 7 - 18 mg/dL AO ADM SS Urea nitrogen/Creatinine [Mass ratio] 17 ratio Invalid Interpretation Code 7 - 27 ratio AO ADM SS WBC (Bld) [#/Vol] 13.5 103/mcL Invalid Interpretation Code 4.6 - 10.8 10^3/mcL AO Workflow SS PBNPon 05-02-2023 Natriuretic peptide B (Bld) [Mass/Vol] 261 pg/mL High 0-125 [facility] ([place]) Comment on above: Result Comment: NT-p roBNP results of less than 300 pg/mL effectively rules out acute congestive heart failure with 99% negative predictive value. Performed By: #### C RP, CBC, ADIFF, GFR, CMP, ANEU, PBNP #### [place] [address] .Auto Diffon 04-23-2023 Basophil, Absolute 0.1 10 3/mcL Normal 0.0-0.2 [facility] ([place]) Comment on above: Performed By: #### A DIFF, ANEU, CBC, LIPID, GFR, CMP, VIDH, A1C ####[id number] [place], [place] [address] Basophils/100 WBC (Bld) 0.9 % Normal 0.0-2.5 [facility] ([place]) Comment on above: Performed By: #### A DIFF, ANEU, CBC, LIPID, GFR, CMP, VIDH, A1C ####[address] [place], [place] [address] Eosinophil, Absolute 0.1 10 3/mcL Normal 0.0-0.4 [facility] ([place]) Comment on above: Performed By: #### A DIFF, ANEU, CBC, LIPID, GFR, CMP, VIDH, A1C ####[address] [place], [place] [address] Eosinophils/100 WBC (Bld) 2.1 % Normal 0.0-7.0 [facility] ([place]) Comment on above: Performed By: #### A DIFF, ANEU, CBC, LIPID, GFR, CMP, VIDH, A1C ####[address] [place], [place] [address] Lymphocyte, Absolute 1.7 10 3/mcL Normal 0.8-3.9 [facility] ([place]) Comment on above: Performed By: #### A DIFF, ANEU, CBC, LIPID, GFR, CMP, VIDH, A1C ####[address] [place], [place] [address] Lymphocytes/100 WBC (Bld) 27.0 % Normal 10.0-50.0 [facility] ([place]) Comment on above: Performed By: #### A DIFF, ANEU, CBC, LIPID, GFR, CMP, VIDH, A1C ####[address] [place], [place] [address] Monocyte, Absolute 0.6 10 3/mcL Normal 0.2-1.0 [facility] ([place]) Comment on above: Performed By: #### A DIFF, ANEU, CBC, LIPID, GFR, CMP, VIDH, A1C ####[address] [place], [place] [address] Monocytes/100 WBC (Bld) 9.8 % Normal 1.7-13.0 [facility] ([place]) Comment on above: Performed By: #### A DIFF, ANEU, CBC, LIPID, GFR, CMP, VIDH, A1C ####[address] [place], [place] [address] Neutrophils/100 WBC (Bld) 60.2 % Normal 37.0-80.0 [facility] ([place]) Comment on above: Performed By: #### A DIFF, ANEU, CBC, LIPID, GFR, CMP, VIDH, A1C ####[address] [place], [place] [address] .GFRon 04-23-2023 GFR Non- 85 ml/min/1.73sqm Normal [facility] ([place]) Comment on above: Result Comment: GFR Population mean for , Non- Americans Ages 20-29 = 116 mL/min/1.73 sq.m. Ages 30-39 = 107 mL/min/1.73 sq.m. Ages 40-49 = 99 mL/min/1.73 sq.m. Ages 50-59 = 93 mL/min/1.73 sq.m. Ages 60-69 = 85 mL/min/1.73 sq.m. Ages 70+ = 75 mL/min/1.73 sq.m. Chronic Kidney Disease: Less than 60 mL/min/1.73 square meters End Stage Renal Disease: Less than 15 mL/min/1.73 square meters Performed By: #### C RP, CBC, ADIFF, GFR, CMP, ANEU, PBNP #### [address] [place], [place] [address] GFR 102 ml/min/1.73sqm Normal [facility] ([place]) Comment on above: Result Comment: GFR Population mean for , Non- Americans Ages 20-29 = 116 mL/min/1.73 sq.m. Ages 30-39 = 107 mL/min/1.73 sq.m. Ages 40-49 = 99 mL/min/1.73 sq.m. Ages 50-59 = 93 mL/min/1.73 sq.m. Ages 60-69 = 85 mL/min/1.73 sq.m. Ages 70+ = 75 mL/min/1.73 sq.m. Chronic Kidney Disease: Less than 60 mL/min/1.73 square meters End Stage Renal Disease: Less than 15 mL/min/1.73 square meters Performed By: #### C RP, CBC, ADIFF, GFR, CMP, ANEU, PBNP #### [place] [id number] [place], [place] [address] .NEUABSon 04-23-2023 Neutrophil, Absolute 3.8 10 3/mcL Normal 2.9-6.2 [facility] ([place]) Comment on above: Performed By: #### A DIFF, ANEU, CBC, LIPID, GFR, CMP, VIDH, A1C ####[address] [address] A1Con 04-23-2023 HbA1c (Bld) [Mass fraction] 5.7 % Normal 4.3-6.4 [facility] ([place]) Comment on above: Performed By: #### A DIFF, ANEU, CBC, LIPID, GFR, CMP, VIDH, A1C ####[address] [address] CBCon 04-23-2023 Erythrocyte distribution width (RBC) [Ratio] 14.7 % High 11.5-14.5 [facility] ([place]) Comment on above: Performed By: #### A DIFF, ANEU, CBC, LIPID, GFR, CMP, VIDH, A1C ####[address] [address] Hematocrit (Bld) [Volume fraction] 41.6 % Normal 37.0-47.0 [facility] ([place]) Comment on above: Performed By: #### A DIFF, ANEU, CBC, LIPID, GFR, CMP, VIDH, A1C ####[place] [address] [place], [place] [address] Hgb 13.7 G/dL Normal 12.0-16.0 [facility] ([place]) Comment on above: Performed By: #### A DIFF, ANEU, CBC, LIPID, GFR, CMP, VIDH, A1C ####[address] [place], [place] [address] MCH (RBC) [Entitic mass] 28.0 pg Normal 27.0-31.2 [facility] ([place]) Comment on above: Performed By: #### A DIFF, ANEU, CBC, LIPID, GFR, CMP, VIDH, A1C ####[address] [place], [place] [address] MCHC 33.0 G/dL Normal 33.0-37.0 [facility] ([place] Comment on above: Performed By: #### A DIFF, ANEU, CBC, LIPID, GFR, CMP, VIDH, A1C ####[address] [place], [place] [address] MCV (RBC) [Entitic vol] 84.7 fL Normal 80.0-94.0 [facility] ([place]) Comment on above: Performed By: #### A DIFF, ANEU, CBC, LIPID, GFR, CMP, VIDH, A1C ####[address] [place], [place] [address] Platelet 250 10 3/mcL Normal 130-400 [facility] ([place]) Comment on above: Performed By: #### A DIFF, ANEU, CBC, LIPID, GFR, CMP, VIDH, A1C ####[address] [place], [place] [address] Platelet mean volume (Bld) [Entitic vol] 8.8 fL Normal 7.4-10.4 [facility] ([place]) Comment on above: Performed By: #### A DIFF, ANEU, CBC, LIPID, GFR, CMP, VIDH, A1C ####[address] [place], [place] [address] RBC 4.90 10 6/mcL Normal 4.20-5.40 [facility] ([place]) Comment on above: Performed By: #### A DIFF, ANEU, CBC, LIPID, GFR, CMP, VIDH, A1C ####[address] [place], [place] [address] WBC 6.2 10 3/mcL Normal 4.6-10.8 [facility]) Comment on above: Performed By: #### A DIFF, ANEU, CBC, LIPID, GFR, CMP, VIDH, A1C ####[address] [address] CMPon 04-23-2023 Albumin Level 3.7 G/dL Normal 3.4-4.8 [facility] ([place]) Comment on above: Performed By: #### C RP, CBC, ADIFF, GFR, CMP, ANEU, PBNP #### [address] [address] Albumin/Globulin [Mass ratio] 0.9 {ratio} Low 1.1-2.5 [facility] ([place]) Comment on above: Performed By: #### C RP, CBC, ADIFF, GFR, CMP, ANEU, PBNP #### [address] [address] ALP [Catalytic activity/Vol] 167 U/L High 40-135 [facility]) Comment on above: Performed By: #### C RP, CBC, ADIFF, GFR, CMP, ANEU, PBNP #### [address] [address] ALT [Catalytic activity/Vol] 26 U/L Normal 14-59 [facility] ([place]) Comment on above: Performed By: #### C RP, CBC, ADIFF, GFR, CMP, ANEU, PBNP #### [address] [address] AST [Catalytic activity/Vol] 17 U/L Normal 10-40 [facility] ([place]) Comment on above: Performed By: #### C RP, CBC, ADIFF, GFR, CMP, ANEU, PBNP #### [address] [address] Bili Total 0.4 mg/dL Normal 0.2-1.0 [facility] ([place]) Comment on above: Result Comment: Use of this assay is not recommended for patients undergoing treatment with eltrombopag due to the potential for falsely elevated results. Performed By: #### C RP, CBC, ADIFF, GFR, CMP, ANEU, PBNP #### [address] [address] BUN/Creatinine Ratio 17 ratio Normal 7-27 [facility] ([place]) Comment on above: Performed By: #### C RP, CBC, ADIFF, GFR, CMP, ANEU, PBNP #### [address] [address] Calcium [Mass/Vol] 9.6 mg/dL Normal 8.4-10.2 [facility] ([place]) Comment on above: Performed By: #### C RP, CBC, ADIFF, GFR, CMP, ANEU, PBNP #### [address] [address] Chloride [Moles/Vol] 103 mmol/L Normal 98-107 [facility] ([place]) Comment on above: Performed By: #### C RP, CBC, ADIFF, GFR, CMP, ANEU, PBNP #### [address] [address] CO2 [Moles/Vol] 26 mmol/L Normal 23-31 [facility] ([place]) Comment on above: Performed By: #### C RP, CBC, ADIFF, GFR, CMP, ANEU, PBNP #### [address] [address] Creatinine [Mass/Vol] 0.70 mg/dL Normal 0.55-1.02 [facility] ([place]) Comment on above: Performed By: #### C RP, CBC, ADIFF, GFR, CMP, ANEU, PBNP #### [address] [address] Electrolyte Balance 9.0 mEq/L Normal 4.0-15.0 [facility] ([place]) Comment on above: Performed By: #### C RP, CBC, ADIFF, GFR, CMP, ANEU, PBNP #### [address] [address] Globulin 4.1 G/dL Normal [facility] ([place]) Comment on above: Performed By: #### C RP, CBC, ADIFF, GFR, CMP, ANEU, PBNP #### [address] [address] Glucose [Mass/Vol] 100 mg/dL Normal 80-115 [facility] ([place]) Comment on above: Performed By: #### C RP, CBC, ADIFF, GFR, CMP, ANEU, PBNP #### [address] [address] Potassium [Moles/Vol] 4.4 mmol/L Normal 3.5-5.1 [facility] ([place]) Comment on above: Performed By: #### C RP, CBC, ADIFF, GFR, CMP, ANEU, PBNP #### [address] [address] Sodium [Moles/Vol] 138 mmol/L Normal 136-145 [facility] ([place]) Comment on above: Performed By: #### C RP, CBC, ADIFF, GFR, CMP, ANEU, PBNP #### [address] [address] Total Protein 7.8 G/dL Normal 6.4-8.2 [facility] ([place]) Comment on above: Performed By: #### C RP, CBC, ADIFF, GFR, CMP, ANEU, PBNP #### [address] [address] Urea nitrogen [Mass/Vol] 12 mg/dL Normal 7-18 [facility] ([place]) Comment on above: Performed By: #### C RP, CBC, ADIFF, GFR, CMP, ANEU, PBNP #### [address] [address] LIPIDon 04-23-2023 Cholesterol [Mass/Vol] 209 mg/dL High 0-200 [facility] ([place]) Comment on above: Result Comment: Chol esterol Reference Interval: Less than 200 Desirable 200-239 Borderline high risk 240 and above High risk Performed By: #### C RP, CBC, ADIFF, GFR, CMP, ANEU, PBNP #### [address] [address] Cholesterol in HDL [Mass/Vol] 67 mg/dL High 40-60 [facility] ([place]) Comment on above: Performed By: #### C RP, CBC, ADIFF, GFR, CMP, ANEU, PBNP #### [address] [place], [place] [address] Cholesterol in LDL [Mass/Vol] 121 mg/dL Normal 0-130 [facility] ([place]) Comment on above: Performed By: #### C RP, CBC, ADIFF, GFR, CMP, ANEU, PBNP #### [address] [place], [place] [address] Triglyceride [Mass/Vol] 105 mg/dL Normal 0-150 [facility] ([place]) Comment on above: Result Comment: Trig lyceride Reference Interval: Less than 150 Normal 150-199 Borderline high risk 200-499 High risk 500 or higher Very high risk Performed By: #### C RP, CBC, ADIFF, GFR, CMP, ANEU, PBNP #### [address] [address] VIDHon 04-23-2023 Vit. D 25-Hydroxy 50.7 ng/mL Normal [facility] ([place]) Comment on above: Result Comment: Inte rpretive Values Based on Total 25(OH) Vitamin D: Deficient <20 ng/mL Insufficient 20 - <30 ng/mL Sufficient 30-100 ng/mL Performed By: #### A DIFF, ANEU, CBC, LIPID, GFR, CMP, VIDH, A1C ####[address] [address] Bacteria identified Cx Nom ( Bld)on 12-12-2022 Interpretation and review of laboratory results Normal [facility] Blood Collection Sit e: Left Hand [facility] CBC panel Auto (Bld)Ordered By: Arminda Dooley on 12-12-2022 Erythrocyte distribution width (RBC) [Ratio] 21.6 % High 11.5 - 14.5 % [facility] Comment on above: I-Anisocytosis Hematocrit (Bld) [Volume fraction] 24.9 % Low 35.0 - 47.0 % [facility] Hemoglobin (Bld) [Mass/Vol] 7.9 g/dL Low 11.7 - 16.0 g/dL [facility] Interpretation and review of laboratory results Abnormal [facility] MCH (RBC) [Entitic mass] 24.8 pg Low 26.0 - 34.0 pg [facility] MCHC (RBC) [Mass/Vol] 31.8 % Low 32.0 - 36.0 % [facility] MCV (RBC) [Entitic vol] 77.9 fL Low 80.0 - 98.0 fL [facility] Platelet mean volume (Bld) [Entitic vol] 7.8 fL 7.4 - 12.4 fL [facility] Platelets (Bld) [#/Vol] 385 10*3/uL 140 - 440 10*3/uL [facility] RBC (Bld) [#/Vol] 3.20 10*6/uL Low 3.8 - 5.20 10*6/uL [facility] WBC (Bld) [#/Vol] 6.7 10*3/uL 3.6 - 10.7 10*3/uL [facility] Comprehensive metabolic 1998 panelon 12-12-2022 Albumin [Mass/Vol] 3.4 g/dL Low 3.5 - 5.0 g/dL [facility] ALP [Catalytic activity/Vol] 140 U/L High 38 - 126 U/L [facility] ALT [Catalytic activity/Vol] 18 U/L 0 - 34 U/L [facility] Anion gap [Moles/Vol] 5 mmol/L 3 - 13 mmol/L [facility] AST [Catalytic activity/Vol] 24 U/L 15 - 46 U/L [facility] Bilirubin [Mass/Vol] 0.3 mg/dL 0.2 - 1 .3 mg/dL [facility] Calcium [Mass/Vol] 9.4 mg/dL 8.4 - 10. 4 mg/dL [facility] Chloride [Moles/Vol] 106 mmol/L 98 - 10 7 mmol/L [facility] CO2 [Moles/Vol] 27 mmol/L 22 - 30 mmol/L [facility] Creatinine [Mass/Vol] 0.53 mg/dL 0.52 - 1.04 mg/dL [facility] GFR/1.73 sq M.predicted MDRD (S/P/Bld) [Vol rate/Area] - PINF [facility] Comment on above: Calculation based on the Chronic Kidney Disease Epidemiology Collaboration (CKD-EPI) equation refit without adjustment for race Glucose [Mass/Vol] 113 mg/dL High 70 - 100 mg/dL [facility] Interpretation and review of laboratory results Abnormal [facility] Potassium [Moles/Vol] 3.7 mmol/L 3.5 - 5.1 mmol/L [facility] Protein [Mass/Vol] 6.3 g/dL 6.3 - 8.2 g/dL [facility] Sodium [Moles/Vol] 138 mmol/L 135 - 145 mmol/L [facility] Urea nitrogen [Mass/Vol] 18 mg/dL High 7 - 17 mg/dL [facility] Iron and Iron binding capaci ty panelon 12-12-2022 Interpretation and review of laboratory results Abnormal [facility] Iron [Mass/Vol] 33 ug/dL Low 37 - 170 ug/dL [facility] Iron binding capacity [Mass/Vol] 350 ug/dL 261 - 497 ug/dL [facility] Iron saturation [Mass fraction] 9 % Low 15 - 50 % [facility] Laboratory - Microbiology an d Antimicrobial susceptibilityOrdered By: Shahla Ybarra on 12-12-2022 SARS-CoV-2 (COVID-19) Ag IA.rapid Ql (Resp) Negative Negative [facility] Comment on above: A negative result do es not rule out the possibility of SARS-CoV-2 infection. NAAT-based methods should be considered for symptomatic patients presenting greater than seven days after onset of symptoms. Method: Lateral flow immunoassay. Fact sheets for healthcare providers and patients can be found at the following sites: https://www.fda.gov/media/324579/download https://www.fda.gov/media/707547/download Laboratory - Microbiology an d Antimicrobial susceptibilityon 12-12-2022 Bacteria identified Cx Nom (Bld) No growth at 5 days [facility] SARS-CoV-2 (COVID-19) Ag IA. rapid Ql (Resp)Ordered By: Shahla Ybarra on 12-12-2022 Interpretation and review of laboratory results Normal [facility] Bacteria identified Cx Nom ( Bld)on 12-11-2022 Interpretation and review of laboratory results Normal [facility] Blood Collection Sit e: Left Forearm [facility] Laboratory - Microbiology an d Antimicrobial susceptibilityon 12-11-2022 Bacteria identified Cx Nom (Bld) No growth at 5 days [facility] Bacteria identified Anaer cx Nom (Unsp spec)Ordered By: David Howard on 12-10-2022 Interpretation and review of laboratory results Normal [facility] Creatinine [Mass/Vol]on 11-29 GFR/1.73 sq M.predicted MDRD (S/P/Bld) [Vol rate/Area] - [facility] Comment on above: Calculation based on the Chronic Kidney Disease Epidemiology Collaboration (CKD-EPI) equation refit without adjustment for race Interpretation and review of laboratory results Normal [facility] Laboratory - Chemistry and C hemistry - challengeon 12-10-2022 Creatinine [Mass/Vol] 0.58 mg/dL 0.52 - 1.04 mg/dL [facility] Laboratory - Microbiology an d Antimicrobial susceptibilityOrdered By: David Howard on 12-10-2022 Bacteria identified Anaer cx Nom (Unsp spec) No growth at 5 days [facility] Bacteria identified Aer cx N om (Unsp spec)on 12-08-2022 Gram Stain Result Moderate Polymorphon uclear leukocytes per low power field [facility] Gram Stain Result No organisms seen [facility] Bacteria identified Cx Nom ( Bld)on 12-08-2022 Interpretation and review of laboratory results Normal [facility] Blood Collection Sit e: Left Hand [facility] Interpretation and review of laboratory results Normal [facility] Blood Collection Sit e: Left Arm [facility] Laboratory - Drug toxicology on 12-08-2022 Vancomycin [Mass/Vol] 19.6 ug/mL 15.0 - 20.0 ug/mL [facility] Laboratory - Microbiology an d Antimicrobial susceptibilityon 12-08-2022 Bacteria identified Cx Nom (Bld) No growth at 5 days [facility] Bacteria identified Cx Nom (Bld) No growth at 5 days [facility] Bacteria identified Aer cx Nom (Unsp spec) Few skin pierce present [facility] No Panel Informationon 12-08 Interpretation and review of laboratory results Normal [facility] Bacteria identified Aer cx N om (Unsp spec)Ordered By: Imani Sharp on 12-07-2022 Gram Stain Result Rare Polymorphonucle ar leukocytes per low power field Abnormal [facility] Gram Stain Result Positive Abnormal [facility] Interpretation and review of laboratory results Abnormal [facility] Basic metabolic 1998 panelon 12-07-2022 Anion gap [Moles/Vol] 6 mmol/L 3 - 13 mmol/L [facility] Calcium [Mass/Vol] 8.5 mg/dL 8.4 - 10. 4 mg/dL [facility] Chloride [Moles/Vol] 107 mmol/L 98 - 10 7 mmol/L [facility] CO2 [Moles/Vol] 29 mmol/L 22 - 30 mmol/L [facility] Creatinine [Mass/Vol] 0.66 mg/dL 0.52 - 1.04 mg/dL [facility] GFR/1.73 sq M.predicted MDRD (S/P/Bld) [Vol rate/Area] - PINF [facility] Comment on above: Calculation based on the Chronic Kidney Disease Epidemiology Collaboration (CKD-EPI) equation refit without adjustment for race Glucose [Mass/Vol] 123 mg/dL High 70 - 100 mg/dL [facility] Interpretation and review of laboratory results Abnormal [facility] Potassium [Moles/Vol] 4.0 mmol/L 3.5 - 5.1 mmol/L [facility] Sodium [Moles/Vol] 142 mmol/L 135 - 145 mmol/L [facility] Urea nitrogen [Mass/Vol] 19 mg/dL High 7 - 17 mg/dL [facility] CBC W Auto Differential pane l (Bld)Ordered By: Tariq Root on 12-07-2022 Basophils (Bld) [#/Vol] 0.1 10*3/uL 0.0 - 0.2 10*3/uL [facility] Basophils/100 WBC (Bld) 0.8 % 0.0 - 2.0 % [facility] Eosinophils (Bld) [#/Vol] 0.1 10*3/uL 0.0 - 0.5 10*3/uL [facility] Eosinophils/100 WBC (Bld) 1.0 % 1.0 - 6.0 % [facility] Erythrocyte distribution width (RBC) [Ratio] 21.6 % High 11.5 - 14.5 % [facility] Comment on above: I-Anisocytosis Hematocrit (Bld) [Volume fraction] 28.2 % Low 35.0 - 47.0 % [facility] Hemoglobin (Bld) [Mass/Vol] 8.9 g/dL Low 11.7 - 16.0 g/dL [facility] Interpretation and review of laboratory results Abnormal [facility] Lymphocytes (Bld) [#/Vol] 1.6 10*3/uL 1.0 - 4.3 10*3/uL [facility] Lymphocytes/100 WBC (Bld) 23.5 % 20.0 - 40.0 % [facility] MCH (RBC) [Entitic mass] 25.4 pg Low 26.0 - 34.0 pg [facility] MCHC (RBC) [Mass/Vol] 31.6 % Low 32.0 - 36.0 % [facility] MCV (RBC) [Entitic vol] 80.5 fL 80.0 - 98.0 fL [facility] Monocytes (Bld) [#/Vol] 0.8 10*3/uL 0.0 - 0.8 10*3/uL [facility] Monocytes/100 WBC (Bld) 11.7 % High 2.0 - 10.0 % [facility] Neutrophils (Bld) [#/Vol] 4.3 10*3/uL 1.8 - 7.0 10*3/uL [facility] Neutrophils/100 WBC (Bld) 63.0 % 40.0 - 80.0 % [facility] Nucleated RBC/100 WBC (Bld) [Ratio] 0.1 % [facility] Platelet mean volume (Bld) [Entitic vol] 8.4 fL 7.4 - 12.4 fL [facility] Platelets (Bld) [#/Vol] 307 10*3/uL 140 - 440 10*3/uL [facility] RBC (Bld) [#/Vol] 3.50 10*6/uL Low 3.8 - 5.20 10*6/uL [facility] WBC (Bld) [#/Vol] 6.8 10*3/uL 3.6 - 10.7 10*3/uL [facility] Laboratory - Chemistry and C hemistry - challengeon 12-07-2022 Troponin I.cardiac [Mass/Vol] ng/mL 0.000 - 0.034 ng/mL [facility] Laboratory - Microbiology an d Antimicrobial susceptibilityOrdered By: Imani Sharp on 12-07-2022 Bacteria identified Aer cx Nom (Unsp spec) Few skin pierce present [facility] No Panel InformationOrdered By: Adam Sun on 12-07-2022 P [place] 11 degrees [employer] Phone: MO Interval 162 ms [employer] Phone: QRS [place] 13 degrees [employer] Phone: QRSD Interval 97 ms [employer] Phone: QT Interval 361 ms [employer] Phone: QTC Interval 436 ms [employer] Phone: T Wave [place] 9 degrees [employer] Phone: [employer] Phone: No Panel Informationon 12-07 Sinus rhythm Electronically Signed On 12-07-2022 16:29:24 EST by Adam Sharp MD - 12/07/2022 IMPRESSION: Sinus rhythm Electronically Signed On 12-07-2022 16:29:24 EST by [facility] CNP 12/07/2022 4:22 PM PICC Procedure Note Siobhan Haas : 1960(62 y.o.) History/labs/allergies reviewed. Indication: LTABX, cellulitis/OM of L AKA stump site Consent was obtained after explaining the procedure, indication, risks to patient and/or next of kin. Time out: Completed immediately prior to the start of the procedure which included verification of the correct patient, correct site and agreement on the procedure to be done. Sterile prep: Complete handwashing care was performed by all involved personnel prior to initiation of the procedure. Full maximum sterile field/barrier technique [...] Site prior to insertion: ecchymoses Lot # [id number] Catheter type: 5 [place] Double Lumen Location: Right basilic vein Trimmed at 48 cm ; inserted at 48 Procedure: The site was prepped with chlorprep [...] X-Ray: Ordered. Placed by Shoaib Rolon APRN [facility] Troponin I.cardiac [Mass/Vol ]on 12-07-2022 Interpretation and review of laboratory results [facility] Patients with high l evels of Biotin oral intake (ie >5 mg/day) may have falsely decreased Troponin levels. [employer] Vital signsOrdered By: Adam cortes on 12-07-2022 Heart rate 88 /min bpm [facility] Work Phone: XR Chest Single viewon 12-07 1. Right PICC catheter placement and position, as reported. 2. No other acute findings. Report Dictated on Electronically Signed By: Sharad Saba Electronically Signed Date/Time: 12/07/2022 5:29 PM EST [employer] Patient Name: SIOBHAN MCINTOSH : 1960 Exam Date/Time: 12/07/2022 16:42 Procedure: XR CHEST 1 VIEW Ordering Provider: ROLON KIRSTON Reason For Exam: PICC Placement CHEST PORTABLE CLINICAL INDICATION: PICC Placement TECHNIQUE: Portable chest x-ray(s). COMPARISON: Earlier on same date at 1039 hours. FINDINGS: Right PICC catheter tip projects over the SVC. Cardiac silhouette within normal limits. Lungs are grossly clear. No apparent pneumothorax. Degenerative change again noted in the thoracic spine and stimulator leads again project over the lower thoracic spine. [facility] [employer] Sharad Saba MD - 12/07/2022 Patient Name: SIOBHAN HAAS : 1960 Exam Date/Time: 12/07/2022 16:42 Procedure: XR CHEST 1 VIEW Ordering Provider: ROLON KIRSTON Reason For Exam: PICC Placement CHEST PORTABLE CLINICAL INDICATION: PICC Placement TECHNIQUE: Portable chest x-ray(s). COMPARISON: Earlier on same date at 1039 hours. FINDINGS: Right PICC catheter tip projects over the SVC. Cardiac silhouette within normal limits. Lungs are grossly clear. No apparent pneumothorax. Degenerative change again noted in the thoracic spine and stimulator leads again project over the lower thoracic spine. IMPRESSION: 1. Right PICC catheter placement and position, as reported. 2. No other acute findings. Report Dictated on Electronically Signed By: Sharad Saba Electronically Signed Date/Time: 12/07/2022 5:29 PM [facility] Radiology Study observation (narrative) [facility] FINDINGS/IMPRESSION: Limitations: No significant limitations. Lines, tubes, and devices: Previously seen left-sided PICC line has been removed. Epidural stimulator leads projecting over the mid/lower thoracic spine faintly visualized Cardiomediastinal silhouette: Heart size is within normal limits. Lungs/Pleura: Borderline central pulmonary vascular congestion. No sizable pleural effusions. No pneumothorax. Osseous structures: Degenerative spondylosis in the visualized spine. Soft tissues: No soft tissue abnormality is detected. Report Dictated on Electronically Signed By: Jaylan Ferrara Electronically Signed Date/Time: 12/07/2022 11:04 AM [facility] [employer] Patient Name: SIOBHAN MCINTOSH : 1960 Exam Date/Time: 12/07/2022 10:53 Procedure: XR CHEST 1 VIEW Ordering Provider: SANDOVAL EMILY Reason For Exam: PAIN CHEST - PORTABLE: CLINICAL INDICATION: Chest pain. . TECHNIQUE: Portable AP COMPARISON: 11/22/2022 [facility] Carey Ferrara MD - 12/07/2022 Patient Name: SIOBHAN HAAS : 1960 Exam Date/Time: 12/07/2022 10:53 Procedure: XR CHEST 1 VIEW Ordering Provider: SANDOVAL EMILY Reason For Exam: PAIN CHEST - PORTABLE: CLINICAL INDICATION: Chest pain. . TECHNIQUE: Portable AP COMPARISON: 11/22/2022 IMPRESSION: FINDINGS/IMPRESSION: Limitations: No significant limitations. Lines, tubes, and devices: Previously seen left-sided PICC line has been removed. Epidural stimulator leads projecting over the mid/lower thoracic spine faintly visualized Cardiomediastinal silhouette: Heart size is within normal limits. Lungs/Pleura: Borderline central pulmonary vascular congestion. No sizable pleural effusions. No pneumothorax. Osseous structures: Degenerative spondylosis in the visualized spine. Soft tissues: No soft tissue abnormality is detected. Report Dictated on Electronically Signed By: Jaylan Ferrara Electronically Signed Date/Time: 12/07/2022 11:04 AM [employer] Radiology Study observation (narrative) [facility] XR Chest Single viewOrdered By: Sharad Saba on 12-07-2022 [facility] Work Phone: XR Chest Single viewOrdered By: Carey Frerara on 12-07-2022 [facility] Work Phone: XR Shoulder - left 2 Viewson 12-07-2022 FINDINGS/IMPRESSION: Limitations: Slightly limited by positioning and underpenetration Advanced osteoarthritis involving the left glenohumeral joint with severe joint space narrowing, subchondral sclerosis, and osteophyte formation. Mild to moderate osteoarthritis involving the left acromioclavicular joint. Trace subacromial spurring. Mild pulmonary vascular congestion within the visualized lung parenchyma. Report Dictated on Electronically Signed By: Jaylan Ferrara Electronically Signed Date/Time: 12/07/2022 11:22 AM [employer] [facility] Patient Name: SIOBHAN MCINTOSH : 1960 Exam Date/Time: 12/07/2022 10:53 Procedure: XR SHOULDER 2+ VIEWS LEFT Ordering Provider: SANDOVAL EMILY Reason For Exam: PAIN CLINICAL INDICATION: Left shoulder pain. TECHNIQUE: 3 views of the left shoulder COMPARISON: 12/03/2022. [facility] Carey Ferrara MD - 12/07/2022 [facility] Name[facility] 1960 [id number] Exam Date/Time: 12/07/2022 10:53 Procedure: XR SHOULDER 2+ VIEWS LEFT Ordering Provider: SANDOVAL EMILY Reason For Exam: PAIN CLINICAL INDICATION: Left shoulder pain. TECHNIQUE: 3 views of the left shoulder COMPARISON: 12/03/2022. IMPRESSION: FINDINGS/IMPRESSION: Limitations: Slightly limited by positioning and underpenetration Advanced osteoarthritis involving the left glenohumeral joint with severe joint space narrowing, subchondral sclerosis, and osteophyte formation. Mild to moderate osteoarthritis involving the left acromioclavicular joint. Trace subacromial spurring. Mild pulmonary vascular congestion within the visualized lung parenchyma. Report Dictated on Electronically Signed By: Jaylan Ferrara Electronically Signed Date/Time: 12/07/2022 11:[address] [facility] [employer] Radiology Study observation (narrative) [employer] XR Shoulder - left 2 ViewsOr dered By: Carey Ferrara on 12-07-2022 [employer] Work Phone: Basic metabolic 1998 panelon 12-06-2022 Anion gap [Moles/Vol] 5 mmol/L 3 - 13 mmol/L [employer] Calcium [Mass/Vol] 8.9 mg/dL 8.4 - 10. 4 mg/dL [employer] Chloride [Moles/Vol] 103 mmol/L 98 - 10 7 mmol/L [facility] [employer] [facility] CO2 [Moles/Vol] 28 mmol/L 22 - 30 mmol/L [facility] [employer] [facility] Creatinine [Mass/Vol] 0.58 mg/dL 0.52 - 1.04 mg/dL [employer] GFR/1.73 sq M.predicted MDRD (S/P/Bld) [Vol rate/Area] - PINF [facility] Comment on above: Calculation based on the Chronic Kidney Disease Epidemiology Collaboration (CKD-EPI) equation refit without adjustment for race Glucose [Mass/Vol] 193 mg/dL High 70 - 100 mg/dL [facility] Interpretation and review of laboratory results Abnormal [facility] Potassium [Moles/Vol] 4.1 mmol/L 3.5 - 5.1 mmol/L [facility] Sodium [Moles/Vol] 136 mmol/L 135 - 145 mmol/L [facility] Urea nitrogen [Mass/Vol] 13 mg/dL 7 - 17 mg/dL [facility] CBC W Auto Differential pane l (Bld)on 12-06-2022 Basophils (Bld) [#/Vol] 0.0 10*3/uL 0.0 - 0.2 10*3/uL [facility] Basophils/100 WBC (Bld) 0.6 % 0.0 - 2.0 % [facility] Eosinophils (Bld) [#/Vol] 0.0 10*3/uL 0.0 - 0.5 10*3/uL [facility] Eosinophils/100 WBC (Bld) 0.0 % Low 1.0 - 6.0 % [facility] Erythrocyte distribution width (RBC) [Ratio] 21.9 % High 11.5 - 14.5 % [facility] Comment on above: I-Anisocytosis Hematocrit (Bld) [Volume fraction] 30.3 % Low 35.0 - 47.0 % [facility] Hemoglobin (Bld) [Mass/Vol] 9.6 g/dL Low 11.7 - 16.0 g/dL [facility] Interpretation and review of laboratory results Abnormal [facility] Lymphocytes (Bld) [#/Vol] 0.7 10*3/uL Low 1.0 - 4.3 10*3/uL [facility] Lymphocytes/100 WBC (Bld) 16.3 % Low 20.0 - 40.0 % [facility] MCH (RBC) [Entitic mass] 25.5 pg Low 26.0 - 34.0 pg [facility] MCHC (RBC) [Mass/Vol] 31.8 % Low 32.0 - 36.0 % [facility] MCV (RBC) [Entitic vol] 80.1 fL 80.0 - 98.0 fL [facility] Monocytes (Bld) [#/Vol] 0.2 10*3/uL 0.0 - 0.8 10*3/uL [facility] Monocytes/100 WBC (Bld) 3.5 % 2.0 - 10.0 % [facility] Neutrophils (Bld) [#/Vol] 3.5 10*3/uL 1.8 - 7.0 10*3/uL [facility] Neutrophils/100 WBC (Bld) 79.6 % 40.0 - 80.0 % [facility] Nucleated RBC/100 WBC (Bld) [Ratio] 0.2 % [facility] Comment on above: This result was prev iously suppressed from the chart. Platelet mean volume (Bld) [Entitic vol] 8.4 fL 7.4 - 12.4 fL [facility] Platelets (Bld) [#/Vol] 330 10*3/uL 140 - 440 10*3/uL [facility] RBC (Bld) [#/Vol] 3.79 10*6/uL Low 3.8 - 5.20 10*6/uL [facility] WBC (Bld) [#/Vol] 4.4 10*3/uL 3.6 - 10.7 10*3/uL [facility] This is an appended report. These results have been appended to a previously verified report. [facility] Basic metabolic 1998 panelon 12-05-2022 Anion gap [Moles/Vol] 6 mmol/L 3 - 13 mmol/L [facility] Calcium [Mass/Vol] 8.7 mg/dL 8.4 - 10. 4 mg/dL [facility] Chloride [Moles/Vol] 107 mmol/L 98 - 10 7 mmol/L [facility] CO2 [Moles/Vol] 26 mmol/L 22 - 30 mmol/L [facility] Creatinine [Mass/Vol] 0.59 mg/dL 0.52 - 1.04 mg/dL [facility] GFR/1.73 sq M.predicted MDRD (S/P/Bld) [Vol rate/Area] - PINF [facility] Comment on above: Calculation based on the Chronic Kidney Disease Epidemiology Collaboration (CKD-EPI) equation refit without adjustment for race Glucose [Mass/Vol] 113 mg/dL High 70 - 100 mg/dL [facility] Interpretation and review of laboratory results Abnormal [facility] Potassium [Moles/Vol] 3.8 mmol/L 3.5 - 5.1 mmol/L [facility] Sodium [Moles/Vol] 140 mmol/L 135 - 145 mmol/L [facility] Urea nitrogen [Mass/Vol] 14 mg/dL 7 - 17 mg/dL [facility] CBC W Auto Differential pane l (Bld)Ordered By: Ann Marie Moraes on 12-05-2022 Basophils (Bld) [#/Vol] 0.0 10*3/uL 0.0 - 0.2 10*3/uL [facility] Basophils/100 WBC (Bld) 1.0 % 0.0 - 2.0 % [facility] Eosinophils (Bld) [#/Vol] 0.2 10*3/uL 0.0 - 0.5 10*3/uL [facility] Eosinophils/100 WBC (Bld) 5.6 % 1.0 - 6.0 % [facility] Erythrocyte distribution width (RBC) [Ratio] 22.1 % High 11.5 - 14.5 % [facility] Comment on above: I-Anisocytosis Hematocrit (Bld) [Volume fraction] 30.2 % Low 35.0 - 47.0 % [facility] Hemoglobin (Bld) [Mass/Vol] 9.4 g/dL Low 11.7 - 16.0 g/dL [facility] Interpretation and review of laboratory results Abnormal [facility] Lymphocytes (Bld) [#/Vol] 1.3 10*3/uL 1.0 - 4.3 10*3/uL [facility] Lymphocytes/100 WBC (Bld) 33.1 % 20.0 - 40.0 % [facility] MCH (RBC) [Entitic mass] 24.9 pg Low 26.0 - 34.0 pg [facility] MCHC (RBC) [Mass/Vol] 31.0 % Low 32.0 - 36.0 % [facility] MCV (RBC) [Entitic vol] 80.5 fL 80.0 - 98.0 fL [facility] Monocytes (Bld) [#/Vol] 0.6 10*3/uL 0.0 - 0.8 10*3/uL [facility] Monocytes/100 WBC (Bld) 14.0 % High 2.0 - 10.0 % [facility] Neutrophils (Bld) [#/Vol] 1.9 10*3/uL 1.8 - 7.0 10*3/uL [facility] Neutrophils/100 WBC (Bld) 46.3 % 40.0 - 80.0 % [facility] Nucleated RBC/100 WBC (Bld) [Ratio] 0.0 % [facility] Platelet mean volume (Bld) [Entitic vol] 7.8 fL 7.4 - 12.4 fL [facility] Platelets (Bld) [#/Vol] 306 10*3/uL 140 - 440 10*3/uL [facility] RBC (Bld) [#/Vol] 3.76 10*6/uL Low 3.8 - 5.20 10*6/uL [facility] WBC (Bld) [#/Vol] 4.1 10*3/uL 3.6 - 10.7 10*3/uL [facility] Blood group antibody screen GEL Qlon 12-04-2022 [facility] Blood type and Crossmatch pa florin (Bld)Ordered By: Katie Weber on 12-04-2022 ABO group Nom (Bld) O [facility] D Ag Ql (RBC) Positive [facility] Laboratory - Blood bankon Blood group antibody screen GEL Ql Negative [facility] Laboratory - Chemistry and C hemistry - challengeon 12-04-2022 Procalcitonin [Mass/Vol] 0.04 ng/mL 0.00 - 0.09 ng/mL [facility] Laboratory - Coagulationon 0 12-04-2022 PT Coag (Bld) [Time] 10.7 s 9.0 - 1 2.0 s [facility] - Drug toxicology on 12-04-2022 Vancomycin [Mass/Vol] 12.4 ug/mL Low 15.0 - 20.0 ug/mL [facility] No Panel Informationon 12-04 Interpretation and review of laboratory results Abnormal [facility] PT Coag (Bld) [Time]on 12-04 INR Coag (PPP) [Relative time] 1.0 {INR} 0.9 - 1.1 [facility] Comment on above: Recommended Anticoag ulant Therapy: SEE BELOW ----- INR of 2.0 - 3.0 : - Prophylaxis of Venous Thrombosis (high-risk surgery) - Treatment of Venous Thrombosis - Treatment of Pulmonary Embolism (Includes tissue heart valves, Acute Myocardial Infarction to prevent systemic embolism, Valvular Heart Disease, and Atrial Fibrillation) ----- INR of 2.5 - 3.5 : - Mechanical Prosthetic Valves (high risk) - If oral anticoagulant therapy is used to prevent Myocardial Infarction Interpretation and review of laboratory results Normal [facility] Procalcitonin [Mass/Vol]on 0 12-04-2022 Interpretation and review of laboratory results Normal [facility] PCT <0.50 = Low risk of severe sepsis and/or septic shock. PCT >2.00 = High risk of severe sepsis and/or septic shock. [facility] Basic metabolic 1998 panelon 12-03-2022 Anion gap [Moles/Vol] 6 mmol/L 3 - 13 mmol/L [facility] Calcium [Mass/Vol] 8.7 mg/dL 8.4 - 10. 4 mg/dL [facility] Chloride [Moles/Vol] 104 mmol/L 98 - 10 7 mmol/L [facility] CO2 [Moles/Vol] 29 mmol/L 22 - 30 mmol/L [facility] Creatinine [Mass/Vol] 0.59 mg/dL 0.52 - 1.04 mg/dL [facility] GFR/1.73 sq M.predicted MDRD (S/P/Bld) [Vol rate/Area] - PINF [facility] Comment on above: Calculation based on the Chronic Kidney Disease Epidemiology Collaboration (CKD-EPI) equation refit without adjustment for race Glucose [Mass/Vol] 108 mg/dL High 70 - 100 mg/dL [facility] Potassium [Moles/Vol] 4.1 mmol/L 3.5 - 5.1 mmol/L [facility] Sodium [Moles/Vol] 139 mmol/L 135 - 145 mmol/L [facility] Urea nitrogen [Mass/Vol] 10 mg/dL 7 - 17 mg/dL [facility] CBC W Auto Differential pane l (Bld)Ordered By: Brigette Huitron on 12-03-2022 Basophils (Bld) [#/Vol] 0.0 10*3/uL 0.0 - 0.2 10*3/uL [facility] Basophils/100 WBC (Bld) 1.0 % 0.0 - 2.0 % [facility] Eosinophils (Bld) [#/Vol] 0.2 10*3/uL 0.0 - 0.5 10*3/uL [facility] Eosinophils/100 WBC (Bld) 5.0 % 1.0 - 6.0 % [facility] [employer] Erythrocyte distribution width (RBC) [Ratio] 22.2 % High 11.5 - 14.5 % [facility] Comment on above: I-Anisocytosis Hematocrit (Bld) [Volume fraction] 28.5 % Low 35.0 - 47.0 % [facility] Hemoglobin (Bld) [Mass/Vol] 9.1 g/dL Low 11.7 - 16.0 g/dL [facility] Interpretation and review of laboratory results Abnormal [facility] [employer] Lymphocytes (Bld) [#/Vol] 1.4 10*3/uL 1.0 - 4.3 10*3/uL [facility] Lymphocytes/100 WBC (Bld) 31.5 % 20.0 - 40.0 % [facility] MCH (RBC) [Entitic mass] 25.5 pg Low 26.0 - 34.[address] [facility] [employer] MCHC (RBC) [Mass/Vol] 32.1 % 32.0 - 36.0 % [facility] MCV (RBC) [Entitic vol] 79.6 fL Low 80.0 - 98.[address] [facility] [employer] Monocytes (Bld) [#/Vol] 0.6 10*3/uL 0.0 - 0.8 10*3/uL [facility] Monocytes/100 WBC (Bld) 13.3 % High 2.0 - 10.0 % [facility] Neutrophils (Bld) [#/Vol] 2.2 10*3/uL 1.8 - 7.0 10*3/uL [facility] Neutrophils/100 WBC (Bld) 49.2 % 40.0 - 80.0 % [facility] Nucleated RBC/100 WBC (Bld) [Ratio] 0.0 % [facility] [employer] Platelet mean volume (Bld) [Entitic vol] 8.2 fL 7.4 - 12.[address] [facility] [employer] [facility] Platelets (Bld) [#/Vol] 284 10*3/uL 140 - 440 10*3/uL [facility] RBC (Bld) [#/Vol] 3.57 10*6/uL Low 3.8 - 5.20 10*6/uL [facility] WBC (Bld) [#/Vol] 4.6 10*3/uL 3.6 - 10.7 10*3/uL [facility] ESR (Bld) [Velocity]on 12-03 Interpretation and review of laboratory results Abnormal [facility] Sed Rate 62 High [facility] Laboratory - Chemistry and C hemistry - challengeon 12-03-2022 CRP [Mass/Vol] 23.2 mg/L High NINF - 10.0 mg/L [facility] Lactate [Moles/Vol] 1.2 mmol/L 0.7 - 2. 0 mmol/L [facility] No Panel Informationon 12-03 Interpretation and review of laboratory results Abnormal [facility] Interpretation and review of laboratory results Normal [facility] XR Femur - left 2 Viewson No evidence of acute osseous abnormality. Report Dictated on Electronically Signed By: Santiago Malloy Electronically Signed Date/Time: 12/03/2022 6:47 PM EST [facility] Patient Name: SIOBHAN MCINTOSH : 1960 Exam Date/Time: 12/03/2022 18:21 Procedure: XR FEMUR 2+ VW LEFT Ordering Provider: LR NICHOLAS Reason For Exam: INFECTION LEFT HIP: CLINICAL INDICATION: Infection TECHNIQUE: AP and Lateral COMPARISON: 10/30/2022 radiographs of the left hip FINDINGS: There is no evidence for fracture or dislocation. Mild osteoarthrosis of the left hip. Partial visualization of spinal stimulator device. [facility] Santiago Malloy MD - 12/03/2022 Patient Name: SIOBHAN HAAS : 1960 Exam Date/Time: 12/03/2022 18:21 Procedure: XR FEMUR 2+ VW LEFT Ordering Provider: LR NICHOLAS Reason For Exam: INFECTION LEFT HIP: CLINICAL INDICATION: Infection TECHNIQUE: AP and Lateral COMPARISON: 10/30/2022 radiographs of the left hip FINDINGS: There is no evidence for fracture or dislocation. Mild osteoarthrosis of the left hip. Partial visualization of spinal stimulator device. IMPRESSION: No evidence of acute osseous abnormality. Report Dictated on Electronically Signed By: Santiago Malloy Electronically Signed Date/Time: 12/03/2022 6:47 PM EST [facility] Radiology Study observation (narrative) [facility] XR Femur - left 2 ViewsOrder ed By: Santiago Malloy on 12-03-2022 [facility] [employer] Work Phone: XR Knee - left 1 or 2 Viewso n 12-03-2022 Cortical irregularit y identified about the distal femoral stem concerning for osteomyelitis, clinical correlation is recommended.. 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 There is cortical irregularity identified about the distal femoral stem. There is soft tissue thickening and soft tissue calcifications. [facility] Santiago Malloy MD - 12/03/2022 Patient Name: SIOBHAN HAAS : 1960 Exam Date/Time: 12/03/2022 18:12 Procedure: XR KNEE 1-2 VIEWS LEFT Ordering Provider: MAR JULIANNE Reason For Exam: s/p aka amputation, r/o osteo LEFT FEMUR CLINICAL INDICATION: Amputation concern for osteomyelitis TECHNIQUE: AP and lateral views were obtained COMPARISON: 11/10/2022 radiographs FINDINGS: Postsurgical changes are again seen of left [id number] amputation. There is cortical irregularity identified about the distal femoral stem. There is soft tissue thickening and soft tissue calcifications. IMPRESSION: Cortical irregularity identified about the distal femoral stem concerning for osteomyelitis, clinical correlation is recommended.. Report Dictated on Electronically Signed By: Santiago Malloy Electronically Signed Date/Time: 12/03/2022 6:[address] [facility] [employer] [facility] Radiology Study observation (narrative) [facility] XR Knee - left 1 or 2 ViewsO rdered By: Santiago Malloy on 12-03-2022 [facility] Work Phone: XR Shoulder - left 2 Viewson 12-03-2022 1. Degenerative changes. Report Dictated on Electronically Signed By: Ozzie Ambriz Electronically Signed Date/Time: 12/03/2022 9:22 PM EST [facility] Patient Name: SIOBHAN MCINTOSH : 1960 Exam Date/Time: 12/03/2022 21:04 Procedure: XR SHOULDER 2+ VIEWS LEFT Ordering Provider: LR NICHOLAS Reason For Exam: pain/reduced ROM LEFT SHOULDER THREE VIEWS CLINICAL INDICATION: pain/reduced ROM TECHNIQUE: Three views of the left shoulder. COMPARISON: None FINDINGS: Severe osteoarthrosis at the glenohumeral joint. Mild AC joint degenerative changes. Normal subacromial space. No acute fracture. [facility] Ozzie Ambriz MD - 12/03/2022 Patient Name: SIOBHAN HAAS : 1960 Exam Date/Time: 12/03/2022 21:04 Procedure: XR SHOULDER 2+ VIEWS LEFT Ordering Provider: LR NICHOLAS Reason For Exam: pain/reduced ROM LEFT SHOULDER THREE VIEWS CLINICAL INDICATION: pain/reduced ROM TECHNIQUE: Three views of the left shoulder. COMPARISON: None FINDINGS: Severe osteoarthrosis at the glenohumeral joint. Mild AC joint degenerative changes. Normal subacromial space. No acute fracture. IMPRESSION: 1. Degenerative changes. Report Dictated on Electronically Signed By: Ozzie Ambriz Electronically Signed Date/Time: 12/03/2022 9:22 PM EST [facility] Radiology Study observation (narrative) [facility] XR Shoulder - left 2 ViewsOr dered By: Ozzie Ambriz on 12-03-2022 [facility] Work Phone: Bacteria identified Cx Nom ( Bld)on 11-27-2022 Interpretation and review of laboratory results Normal [facility] Basic metabolic 1998 panelon 11-27-2022 Anion gap [Moles/Vol] 4 mmol/L 3 - 13 mmol/L [facility] Calcium [Mass/Vol] 9.1 mg/dL 8.4 - 10. 4 mg/dL [facility] Chloride [Moles/Vol] 102 mmol/L 98 - 10 7 mmol/L [facility] CO2 [Moles/Vol] 30 mmol/L 22 - 30 mmol/L [facility] Creatinine [Mass/Vol] 0.62 mg/dL 0.52 - 1.04 mg/dL [facility] GFR/1.73 sq M.predicted MDRD (S/P/Bld) [Vol rate/Area] - PINF [facility] Glucose [Mass/Vol] 117 mg/dL High 70 - 100 mg/dL [facility] Interpretation and review of laboratory results Abnormal [facility] Potassium [Moles/Vol] 3.8 mmol/L 3.5 - 5.1 mmol/L [facility] Sodium [Moles/Vol] 136 mmol/L 135 - 145 mmol/L [facility] Urea nitrogen [Mass/Vol] 16 mg/dL 7 - 17 mg/dL [facility] CBC W Auto Differential pane l (Bld)on 11-27-2022 Basophils (Bld) [#/Vol] 0.1 10*3/uL 0.0 - 0.2 10*3/uL [facility] Basophils/100 WBC (Bld) 0.8 % 0.0 - 2.0 % [facility] Eosinophils (Bld) [#/Vol] 0.4 10*3/uL 0.0 - 0.5 10*3/uL [facility] Eosinophils/100 WBC (Bld) 5.9 % 1.0 - 6.0 % [facility] Erythrocyte distribution width (RBC) [Ratio] 22.5 % High 11.5 - 14.5 % [facility] Hematocrit (Bld) [Volume fraction] 28.2 % Low 35.0 - 47.0 % [facility] Hemoglobin (Bld) [Mass/Vol] 8.8 g/dL Low 11.7 - 16.0 g/dL [facility] Interpretation and review of laboratory results Abnormal [facility] Lymphocytes (Bld) [#/Vol] 1.5 10*3/uL 1.0 - 4.3 10*3/uL [facility] Lymphocytes/100 WBC (Bld) 22.9 % 20.0 - 40.0 % [facility] MCH (RBC) [Entitic mass] 24.9 pg Low 26.0 - 34.0 pg [facility] MCHC (RBC) [Mass/Vol] 31.0 % Low 32.0 - 36.0 % [facility] MCV (RBC) [Entitic vol] 80.2 fL 80.0 - 98.0 fL [facility] Monocytes (Bld) [#/Vol] 0.7 10*3/uL 0.0 - 0.8 10*3/uL [facility] Monocytes/100 WBC (Bld) 10.5 % High 2.0 - 10.0 % [facility] Neutrophils (Bld) [#/Vol] 4.0 10*3/uL 1.8 - 7.0 10*3/uL [facility] Neutrophils/100 WBC (Bld) 59.9 % 40.0 - 80.0 % [facility] Nucleated RBC/100 WBC (Bld) [Ratio] 0.0 % [facility] Platelet mean volume (Bld) [Entitic vol] 7.5 fL 7.4 - 12.4 fL [facility] Platelets (Bld) [#/Vol] 423 10*3/uL 140 - 440 10*3/uL [facility] RBC (Bld) [#/Vol] 3.52 10*6/uL Low 3.8 - 5.20 10*6/uL [facility] WBC (Bld) [#/Vol] 6.7 10*3/uL 3.6 - 10.7 10*3/uL [facility] Laboratory - Microbiology an d Antimicrobial susceptibilityon 11-27-2022 Bacteria identified Cx Nom (Bld) No growth at 5 days [facility] No Panel Informationon 11-27 CV CPACS Basic metabolic 1998 panelon 11-26-2022 Anion gap [Moles/Vol] 2 mmol/L Low 3 - 13 mmol/L [facility] Calcium [Mass/Vol] 8.9 mg/dL 8.4 - 10. 4 mg/dL [facility] Chloride [Moles/Vol] 103 mmol/L 98 - 10 7 mmol/L [facility] CO2 [Moles/Vol] 31 mmol/L High 22 - 30 mmol/L [facility] Creatinine [Mass/Vol] 0.68 mg/dL 0.52 - 1.04 mg/dL [facility] GFR/1.73 sq M.predicted MDRD (S/P/Bld) [Vol rate/Area] - PINF [facility] Glucose [Mass/Vol] 112 mg/dL High 70 - 100 mg/dL [facility] Interpretation and review of laboratory results Abnormal [facility] Potassium [Moles/Vol] 4.1 mmol/L 3.5 - 5.1 mmol/L [facility] Sodium [Moles/Vol] 136 mmol/L 135 - 145 mmol/L [facility] Urea nitrogen [Mass/Vol] 15 mg/dL 7 - 17 mg/dL [facility] CBC W Auto Differential pane l (Bld)on 11-26-2022 Basophils (Bld) [#/Vol] 0.1 10*3/uL 0.0 - 0.2 10*3/uL [facility] Basophils/100 WBC (Bld) 1.0 % 0.0 - 2.0 % [facility] Eosinophils (Bld) [#/Vol] 0.4 10*3/uL 0.0 - 0.5 10*3/uL [facility] Eosinophils/100 WBC (Bld) 6.0 % 1.0 - 6.0 % [facility] Erythrocyte distribution width (RBC) [Ratio] 22.4 % High 11.5 - 14.5 % [facility] Hematocrit (Bld) [Volume fraction] 26.5 % Low 35.0 - 47.0 % [facility] Hemoglobin (Bld) [Mass/Vol] 8.4 g/dL Low 11.7 - 16.0 g/dL [facility] Interpretation and review of laboratory results Abnormal [facility] Lymphocytes (Bld) [#/Vol] 1.6 10*3/uL 1.0 - 4.3 10*3/uL [facility] Lymphocytes/100 WBC (Bld) 24.1 % 20.0 - 40.0 % [facility] MCH (RBC) [Entitic mass] 25.3 pg Low 26.0 - 34.0 pg [facility] MCHC (RBC) [Mass/Vol] 31.6 % Low 32.0 - 36.0 % [facility] MCV (RBC) [Entitic vol] 80.0 fL 80.0 - 98.0 fL [facility] Monocytes (Bld) [#/Vol] 0.8 10*3/uL 0.0 - 0.8 10*3/uL [facility] Monocytes/100 WBC (Bld) 12.5 % High 2.0 - 10.0 % [facility] Neutrophils (Bld) [#/Vol] 3.7 10*3/uL 1.8 - 7.0 10*3/uL [facility] Neutrophils/100 WBC (Bld) 56.4 % 40.0 - 80.0 % [facility] Nucleated RBC/100 WBC (Bld) [Ratio] 0.1 % [facility] Platelet mean volume (Bld) [Entitic vol] 7.5 fL 7.4 - 12.4 fL [facility] Platelets (Bld) [#/Vol] 385 10*3/uL 140 - 440 10*3/uL [facility] RBC (Bld) [#/Vol] 3.31 10*6/uL Low 3.8 - 5.20 10*6/uL [facility] WBC (Bld) [#/Vol] 6.5 10*3/uL 3.6 - 10.7 10*3/uL [facility] Basic metabolic 1998 panelon 11-25-2022 Anion gap [Moles/Vol] 3 mmol/L 3 - 13 mmol/L [facility] Calcium [Mass/Vol] 9.0 mg/dL 8.4 - 10. 4 mg/dL [facility] Chloride [Moles/Vol] 102 mmol/L 98 - 10 7 mmol/L [facility] CO2 [Moles/Vol] 32 mmol/L High 22 - 30 mmol/L [facility] Creatinine [Mass/Vol] 0.71 mg/dL 0.52 - 1.04 mg/dL [facility] GFR/1.73 sq M.predicted MDRD (S/P/Bld) [Vol rate/Area] - PINF [facility] Glucose [Mass/Vol] 116 mg/dL High 70 - 100 mg/dL [facility] Interpretation and review of laboratory results Abnormal [facility] Potassium [Moles/Vol] 3.8 mmol/L 3.5 - 5.1 mmol/L [facility] Sodium [Moles/Vol] 136 mmol/L 135 - 145 mmol/L [facility] Urea nitrogen [Mass/Vol] 15 mg/dL 7 - 17 mg/dL [facility] CBC W Auto Differential pane l (Bld)on 11-25-2022 Erythrocyte distribution width (RBC) [Ratio] 22.1 % High 11.5 - 14.5 % [facility] Hematocrit (Bld) [Volume fraction] 27.0 % Low 35.0 - 47.0 % [facility] Hemoglobin (Bld) [Mass/Vol] 8.5 g/dL Low 11.7 - 16.0 g/dL [facility] MCH (RBC) [Entitic mass] 25.2 pg Low 26.0 - 34.0 pg [facility] MCHC (RBC) [Mass/Vol] 31.5 % Low 32.0 - 36.0 % [facility] MCV (RBC) [Entitic vol] 80.0 fL 80.0 - 98.0 fL [facility] Nucleated RBC/100 WBC (Bld) [Ratio] 0.2 % [facility] Platelet mean volume (Bld) [Entitic vol] 7.6 fL 7.4 - 12.4 fL [facility] Platelets (Bld) [#/Vol] 407 10*3/uL 140 - 440 10*3/uL [facility] RBC (Bld) [#/Vol] 3.38 10*6/uL Low 3.8 - 5.20 10*6/uL [facility] WBC (Bld) [#/Vol] 6.4 10*3/uL 3.6 - 10.7 10*3/uL [facility] Manual differential performe d Ql (Bld)on 11-25-2022 Anisocytosis Ql (Bld) Slight Abnormal (none) [facility] Cells Counted Total (Bld) [#] 100 {cells} [facility] Dacrocytes LM Ql (Bld) Rare Abnormal (none) [facility] Eosinophils (Bld) [#/Vol] 0.3 10*3/uL 0.0 - 0.5 10*3/uL [facility] Eosinophils Manual 5 High 0 - 1 [facility] Eosinophils/100 WBC (Bld) 5 % 1 - 6 % [facility] Leukocyte morphology finding Nom (Bld) Normal [facility] Lymphocytes (Bld) [#/Vol] 1.3 10*3/uL 1.0 - 4.3 10*3/uL [facility] Lymphocytes Manual 21 [facility] Lymphocytes/100 WBC (Bld) 21 % 20 - 40 % [facility] Metamyelocytes (Bld) [#/Vol] 0.1 10*3/uL High NINF - 0.0 10*3/uL [facility] Metamyelocytes Manual 2 [facility] Metamyelocytes/100 WBC (Bld) 2 % High NINF - 0 % [facility] Microcytes Ql (Bld) Slight Abnormal (none) [facility] Monocytes (Bld) [#/Vol] 0.5 10*3/uL 0.0 - 0.8 10*3/uL [facility] Monocytes Manual 8 [facility] Monocytes/100 WBC (Bld) 8 % 2 - 10 % [facility] Neutrophils (Bld) [#/Vol] 4.1 10*3/uL 1.8 - 7.0 10*3/uL [facility] Neutrophils Manual 64 [facility] Ovalocytes LM Ql (Bld) Slight Abnormal (none) [facility] Platelet morphology finding Nom (Bld) Normal [facility] Poikilocytosis LM Ql (Bld) Slight Abnormal (none) [facility] Polychromasia LM Ql (Bld) Slight Abnormal (none) [facility] Segmented neutrophils/100 WBC (Bld) 64 % 40 - 80 % [facility] Target cells LM Ql (Bld) Rare Abnormal (none) [facility] WBC corrected for nucl RBC (Bld) [#/Vol] 6.40 10*3/uL 3.60 - 10.70 10*3/uL [facility] No Panel Informationon 11-25 CV CPACS Interpretation and review of laboratory results Abnormal [facility] Basic metabolic 1998 panelon 11-24-2022 Anion gap [Moles/Vol] 4 mmol/L 3 - 13 mmol/L [facility] Calcium [Mass/Vol] 9.1 mg/dL 8.4 - 10. 4 mg/dL [facility] Chloride [Moles/Vol] 101 mmol/L 98 - 10 7 mmol/L [facility] CO2 [Moles/Vol] 30 mmol/L 22 - 30 mmol/L [facility] Creatinine [Mass/Vol] 0.61 mg/dL 0.52 - 1.04 mg/dL [facility] GFR/1.73 sq M.predicted MDRD (S/P/Bld) [Vol rate/Area] - PINF [facility] Glucose [Mass/Vol] 111 mg/dL High 70 - 100 mg/dL [facility] Interpretation and review of laboratory results Abnormal [facility] Potassium [Moles/Vol] 3.8 mmol/L 3.5 - 5.1 mmol/L [facility] Sodium [Moles/Vol] 135 mmol/L 135 - 145 mmol/L [facility] Urea nitrogen [Mass/Vol] 14 mg/dL 7 - 17 mg/dL [facility] CBC W Auto Differential pane l (Bld)on 11-24-2022 Erythrocyte distribution width (RBC) [Ratio] 21.9 % High 11.5 - 14.5 % [facility] Hematocrit (Bld) [Volume fraction] 26.2 % Low 35.0 - 47.0 % [facility] Hemoglobin (Bld) [Mass/Vol] 8.4 g/dL Low 11.7 - 16.0 g/dL [facility] MCH (RBC) [Entitic mass] 25.3 pg Low 26.0 - 34.0 pg [facility] MCHC (RBC) [Mass/Vol] 32.2 % 32.0 - 36.0 % [facility] MCV (RBC) [Entitic vol] 78.5 fL Low 80.0 - 98.0 fL [facility] Nucleated RBC/100 WBC (Bld) [Ratio] 0.0 % [facility] Platelet mean volume (Bld) [Entitic vol] 7.9 fL 7.4 - 12.4 fL [facility] Platelets (Bld) [#/Vol] 425 10*3/uL 140 - 440 10*3/uL [facility] RBC (Bld) [#/Vol] 3.34 10*6/uL Low 3.8 - 5.20 10*6/uL [facility] WBC (Bld) [#/Vol] 6.9 10*3/uL 3.6 - 10.7 10*3/uL [facility] Manual differential performe d Ql (Bld)on 11-24-2022 Anisocytosis Ql (Bld) Slight Abnormal (none) [facility] Band form neutrophils (Bld) [#/Vol] 0.1 10*3/uL High NINF - 0.0 10*3/uL [facility] Band form neutrophils/100 WBC (Bld) 2 % High NINF - 0 % [facility] Bands Manual 2 [facility] Cells Counted Total (Bld) [#] 100 {cells} [facility] Eosinophils (Bld) [#/Vol] 0.3 10*3/uL 0.0 - 0.5 10*3/uL [facility] Eosinophils Manual 5 High 0 - 1 [facility] Eosinophils/100 WBC (Bld) 5 % 1 - 6 % [facility] Leukocyte morphology finding Nom (Bld) Normal [facility] Lymphocytes (Bld) [#/Vol] 1.7 10*3/uL 1.0 - 4.3 10*3/uL [facility] Lymphocytes Manual 24 [facility] Lymphocytes/100 WBC (Bld) 24 % 20 - 40 % [facility] Microcytes Ql (Bld) Slight Abnormal (none) [facility] Monocytes (Bld) [#/Vol] 1.0 10*3/uL High 0.0 - 0.8 10*3/uL [facility] Monocytes Manual 14 [facility] Monocytes/100 WBC (Bld) 14 % High 2 - 10 % [facility] Myelocytes (Bld) [#/Vol] 0.1 10*3/uL High NINF - 0.0 10*3/uL [facility] Myelocytes Manual 1 [facility] Myelocytes/100 WBC (Bld) 1 % High NINF - 0 % [facility] Neutrophils (Bld) [#/Vol] 3.9 10*3/uL 1.8 - 7.0 10*3/uL [facility] Neutrophils Manual 54 [facility] Ovalocytes LM Ql (Bld) Slight Abnormal (none) [facility] Platelet morphology finding Nom (Bld) Normal [facility] Poikilocytosis LM Ql (Bld) Slight Abnormal (none) [facility] Polychromasia LM Ql (Bld) Slight Abnormal (none) [facility] Segmented neutrophils/100 WBC (Bld) 54 % 40 - 80 % [facility] WBC corrected for nucl RBC (Bld) [#/Vol] 6.90 10*3/uL 3.60 - 10.70 10*3/uL [facility] No Panel Informationon 11-24 Interpretation and review of laboratory results Abnormal [facility] Basic metabolic 1998 panelon 11-23-2022 Anion gap [Moles/Vol] 3 mmol/L 3 - 13 mmol/L [facility] Calcium [Mass/Vol] 8.6 mg/dL 8.4 - 10. 4 mg/dL [facility] Chloride [Moles/Vol] 102 mmol/L 98 - 10 7 mmol/L [facility] CO2 [Moles/Vol] 29 mmol/L 22 - 30 mmol/L [facility] Creatinine [Mass/Vol] 0.62 mg/dL 0.52 - 1.04 mg/dL [facility] GFR/1.73 sq M.predicted MDRD (S/P/Bld) [Vol rate/Area] - PINF [facility] Glucose [Mass/Vol] 126 mg/dL High 70 - 100 mg/dL [facility] Interpretation and review of laboratory results Abnormal [facility] Potassium [Moles/Vol] 3.9 mmol/L 3.5 - 5.1 mmol/L [facility] Sodium [Moles/Vol] 134 mmol/L Low 135 - 145 mmol/L [facility] Urea nitrogen [Mass/Vol] 14 mg/dL 7 - 17 mg/dL [facility] CBC W Auto Differential pane l (Bld)Ordered By: Jurgen Calderón on 11-23-2022 Erythrocyte distribution width (RBC) [Ratio] 21.6 % High 11.5 - 14.5 % [facility] Hematocrit (Bld) [Volume fraction] 27.5 % Low 35.0 - 47.0 % [facility] Hemoglobin (Bld) [Mass/Vol] 8.6 g/dL Low 11.7 - 16.0 g/dL [facility] MCH (RBC) [Entitic mass] 24.8 pg Low 26.0 - 34.0 pg [facility] MCHC (RBC) [Mass/Vol] 31.2 % Low 32.0 - 36.0 % [facility] MCV (RBC) [Entitic vol] 79.7 fL Low 80.0 - 98.[address] [facility] Nucleated RBC/100 WBC (Bld) [Ratio] 0.1 % [facility] Platelet mean volume (Bld) [Entitic vol] 7.4 fL 7.4 - 12.[address] [facility] Platelets (Bld) [#/Vol] 410 10*3/uL 140 - 440 10*3/uL [facility] RBC (Bld) [#/Vol] 3.45 10*6/uL Low 3.8 - 5.20 10*6/uL [facility] WBC (Bld) [#/Vol] 6.1 10*3/uL 3.6 - 10.7 10*3/uL [facility] Manual differential performe d Ql (Bld)on 11-23-2022 Anisocytosis Ql (Bld) Slight Abnormal (none) [facility] Cells Counted Total (Bld) [#] 100 {cells} [facility] Eosinophils (Bld) [#/Vol] 0.3 10*3/uL 0.0 - 0.5 10*3/uL [facility] Eosinophils Manual 5 High 0 - 1 [facility] Eosinophils/100 WBC (Bld) 5 % 1 - 6 % [facility] Hypochromia Ql (Bld) Slight Abnormal (none) [facility] Leukocyte morphology finding Nom (Bld) Normal [facility] Lymphocytes (Bld) [#/Vol] 1.4 10*3/uL 1.0 - 4.3 10*3/uL [facility] Lymphocytes Manual 23 [facility] Lymphocytes/100 WBC (Bld) 23 % 20 - 40 % [facility] Microcytes Ql (Bld) Slight Abnormal (none) [facility] Monocytes (Bld) [#/Vol] 1.0 10*3/uL High 0.0 - 0.8 10*3/uL [facility] Monocytes Manual 16 [facility] Monocytes/100 WBC (Bld) 16 % High 2 - 10 % [facility] Neutrophils (Bld) [#/Vol] 3.4 10*3/uL 1.8 - 7.0 10*3/uL [facility] Neutrophils Manual 56 [facility] Ovalocytes LM Ql (Bld) Slight Abnormal (none) [facility] Platelet morphology finding Nom (Bld) Normal [facility] Poikilocytosis LM Ql (Bld) Slight Abnormal (none) [facility] Polychromasia LM Ql (Bld) Slight Abnormal (none) [facility] Segmented neutrophils/100 WBC (Bld) 56 % 40 - 80 % [facility] WBC corrected for nucl RBC (Bld) [#/Vol] 6.10 10*3/uL 3.60 - 10.70 10*3/uL [facility] No Panel Informationon 11-23 CV CPACS No Panel InformationOrdered By: Jurgen Calderón on 11-23-2022 Interpretation and review of laboratory results Abnormal [facility] Basic metabolic 1998 panelon 11-22-2022 Anion gap [Moles/Vol] 6 mmol/L 3 - 13 mmol/L [facility] Calcium [Mass/Vol] 8.6 mg/dL 8.4 - 10. 4 mg/dL [facility] Chloride [Moles/Vol] 101 mmol/L 98 - 10 7 mmol/L [facility] CO2 [Moles/Vol] 25 mmol/L 22 - 30 mmol/L [facility] Creatinine [Mass/Vol] 0.64 mg/dL 0.52 - 1.04 mg/dL [facility] GFR/1.73 sq M.predicted MDRD (S/P/Bld) [Vol rate/Area] - PINF [facility] Glucose [Mass/Vol] 102 mg/dL High 70 - 100 mg/dL [facility] Interpretation and review of laboratory results Abnormal [facility] Potassium [Moles/Vol] 4.4 mmol/L 3.5 - 5.1 mmol/L [facility] Sodium [Moles/Vol] 132 mmol/L Low 135 - 145 mmol/L [facility] Urea nitrogen [Mass/Vol] 13 mg/dL 7 - 17 mg/dL [facility] CBC W Auto Differential pane l (Bld)on 11-22-2022 Basophils (Bld) [#/Vol] 0.0 10*3/uL 0.0 - 0.2 10*3/uL [facility] Basophils/100 WBC (Bld) 0.5 % 0.0 - 2.0 % [facility] Eosinophils (Bld) [#/Vol] 0.1 10*3/uL 0.0 - 0.5 10*3/uL [facility] Eosinophils/100 WBC (Bld) 1.5 % 1.0 - 6.0 % [facility] Erythrocyte distribution width (RBC) [Ratio] 22.4 % High 11.5 - 14.5 % [facility] Hematocrit (Bld) [Volume fraction] 28.9 % Low 35.0 - 47.0 % [facility] Hemoglobin (Bld) [Mass/Vol] 9.2 g/dL Low 11.7 - 16.0 g/dL [facility] Interpretation and review of laboratory results Abnormal [facility] Lymphocytes (Bld) [#/Vol] 1.1 10*3/uL 1.0 - 4.3 10*3/uL [facility] Lymphocytes/100 WBC (Bld) 12.8 % Low 20.0 - 40.0 % [facility] MCH (RBC) [Entitic mass] 25.6 pg Low 26.0 - 34.0 pg [facility] MCHC (RBC) [Mass/Vol] 31.9 % Low 32.0 - 36.0 % [facility] MCV (RBC) [Entitic vol] 80.1 fL 80.0 - 98.0 fL [facility] Monocytes (Bld) [#/Vol] 0.9 10*3/uL High 0.0 - 0.8 10*3/uL [facility] Monocytes/100 WBC (Bld) 11.2 % High 2.0 - 10.0 % [facility] Neutrophils (Bld) [#/Vol] 6.2 10*3/uL 1.8 - 7.0 10*3/uL [facility] Neutrophils/100 WBC (Bld) 74.0 % 40.0 - 80.0 % [facility] Nucleated RBC/100 WBC (Bld) [Ratio] 0.0 % [facility] Platelet mean volume (Bld) [Entitic vol] 7.9 fL 7.4 - 12.4 fL [facility] Platelets (Bld) [#/Vol] 444 10*3/uL High 140 - 440 10*3/uL [facility] RBC (Bld) [#/Vol] 3.61 10*6/uL Low 3.8 - 5.20 10*6/uL [facility] WBC (Bld) [#/Vol] 8.4 10*3/uL 3.6 - 10.7 10*3/uL [facility] XR Chest Single viewon 11-22 1. Left arm PICC ariane e as described. The distal tip is in the SVC. 2. No focal infiltrates. Report Dictated on Electronically Signed By: Rusty Brenner Electronically Signed Date/Time: 11/22/2022 4:51 PM EST [facility] Patient Name: SIOBHAN MCINTOSH : 1960 Exam Date/Time: 11/22/2022 16:31 Procedure: XR CHEST 1 VIEW Ordering Provider: MCADAMS OLIVIA Reason For Exam: line placement CLINICAL INFORMATION: PICC line placement. Portable view of the chest at 1620 hours is provided and compared with a previous study dated 11/10/2022. FINDINGS: A PICC line is now in place via the left arm. The distal tip is in the superior vena cava. Epidural stimulator leads overlie the mid/lower thoracic spine. The cardiac silhouette and mediastinum are otherwise within normal limits. The lungs are free of infiltrate or pleural effusion. The visualized bones and soft tissues are grossly unremarkable. [facility] Rusty Brenner MD - 11/22/2022 Patient Name: SIOBHAN HAAS : 1960 Exam Date/Time: 11/22/2022 16:31 Procedure: XR CHEST 1 VIEW Ordering Provider: MCADAMS OLIVIA Reason For Exam: line placement CLINICAL INFORMATION: PICC line placement. Portable view of the chest at 1620 hours is provided and compared with a previous study dated 11/10/2022. FINDINGS: A PICC line is now in place via the left arm. The distal tip is in the superior vena cava. Epidural stimulator leads overlie the mid/lower thoracic spine. The cardiac silhouette and mediastinum are otherwise within normal limits. The lungs are free of infiltrate or pleural effusion. The visualized bones and soft tissues are grossly unremarkable. IMPRESSION: 1. Left arm PICC line as described. The distal tip is in the SVC. 2. No focal infiltrates. Report Dictated on Electronically Signed By: Rusty Brenner Electronically Signed Date/Time: 11/22/2022 4:51 PM EST [facility] RADIOLOGY SYSTEM [facility] RADIOLOGY SYSTEM [facility] Radiology Study observation (narrative) [facility] XR Chest Single viewOrdered By: Rusty Brenner on 11-22-2022 [facility] [employer] (deja mi) Work Phone: Bacteria identified Anaer cx Nom (Unsp spec)Ordered By: Janeth Malave on 11-21-2022 Interpretation and review of laboratory results Abnormal [facility] Basic metabolic 1998 panelon 11-21-2022 Anion gap [Moles/Vol] 1 mmol/L Low 3 - 13 mmol/L [facility] Calcium [Mass/Vol] 8.5 mg/dL 8.4 - 10. 4 mg/dL [facility] Chloride [Moles/Vol] 103 mmol/L 98 - 10 7 mmol/L [facility] CO2 [Moles/Vol] 32 mmol/L High 22 - 30 mmol/L [facility] Creatinine [Mass/Vol] 0.75 mg/dL 0.52 - 1.04 mg/dL [facility] GFR/1.73 sq M.predicted MDRD (S/P/Bld) [Vol rate/Area] 89.6 mL/min/{1.73_m2} - PINF [facility] Glucose [Mass/Vol] 117 mg/dL High 70 - 100 mg/dL [facility] Interpretation and review of laboratory results Abnormal [facility] Potassium [Moles/Vol] 4.3 mmol/L 3.5 - 5.1 mmol/L [facility] Sodium [Moles/Vol] 136 mmol/L 135 - 145 mmol/L [facility] Urea nitrogen [Mass/Vol] 24 mg/dL High 7 - 17 mg/dL [facility] Blood type and Crossmatch pa florin (Bld)on 11-21-2022 ABO group Nom (Bld) O [facility] Blood group antibody screen GEL Ql Negative [facility] D Ag Ql (RBC) Positive [facility] CBC W Auto Differential pane l (Bld)on 11-21-2022 Basophils (Bld) [#/Vol] 0.0 10*3/uL 0.0 - 0.2 10*3/uL [facility] Basophils/100 WBC (Bld) 0.8 % 0.0 - 2.0 % [facility] Eosinophils (Bld) [#/Vol] 0.4 10*3/uL 0.0 - 0.5 10*3/uL [facility] Eosinophils/100 WBC (Bld) 6.1 % High 1.0 - 6.0 % [facility] Erythrocyte distribution width (RBC) [Ratio] 22.3 % High 11.5 - 14.5 % [facility] Hematocrit (Bld) [Volume fraction] 27.8 % Low 35.0 - 47.0 % [facility] Hemoglobin (Bld) [Mass/Vol] 8.6 g/dL Low 11.7 - 16.0 g/dL [facility] Interpretation and review of laboratory results Abnormal [facility] Lymphocytes (Bld) [#/Vol] 1.4 10*3/uL 1.0 - 4.3 10*3/uL [facility] Lymphocytes/100 WBC (Bld) 23.7 % 20.0 - 40.0 % [facility] MCH (RBC) [Entitic mass] 25.0 pg Low 26.0 - 34.0 pg [facility] MCHC (RBC) [Mass/Vol] 31.2 % Low 32.0 - 36.0 % [facility] MCV (RBC) [Entitic vol] 80.2 fL 80.0 - 98.0 fL [facility] Monocytes (Bld) [#/Vol] 0.8 10*3/uL 0.0 - 0.8 10*3/uL [facility] Monocytes/100 WBC (Bld) 12.8 % High 2.0 - 10.0 % [facility] Neutrophils (Bld) [#/Vol] 3.4 10*3/uL 1.8 - 7.0 10*3/uL [facility] Neutrophils/100 WBC (Bld) 56.6 % 40.0 - 80.0 % [facility] Nucleated RBC/100 WBC (Bld) [Ratio] 0.1 % [facility] Platelet mean volume (Bld) [Entitic vol] 7.3 fL Low 7.4 - 12.4 fL [facility] Platelets (Bld) [#/Vol] 432 10*3/uL 140 - 440 10*3/uL [facility] RBC (Bld) [#/Vol] 3.46 10*6/uL Low 3.8 - 5.20 10*6/uL [facility] WBC (Bld) [#/Vol] 6.0 10*3/uL 3.6 - 10.7 10*3/uL [facility] Laboratory - Coagulationon 0 11-21-2022 PT Coag (Bld) [Time] 10.3 s 9.0 - 1 2.0 s [facility] - Microbiology an d Antimicrobial susceptibilityOrdered By: Janeth Malave on 11-21-2022 Bacteria identified Anaer cx Nom (Unsp spec) Mixed aerobic and anaerobic bacteria present. [facility] Bacteria identified Anaer cx Nom (Unsp spec) Negative Abnormal [facility] Bacteria identified Anaer cx Nom (Unsp spec) Few Bacteroides fragilis group Abnormal [facility] PT Coag (Bld) [Time]on 11-21 INR Coag (PPP) [Relative time] 1.0 {INR} 0.9 - 1.1 [facility] Interpretation and review of laboratory results Normal [facility] Bacteria identified Aer cx N om (Unsp spec)Ordered By: David Howard on 11-20-2022 Gram Stain Result Few Polymorphonuclea r leukocytes per low power field [facility] Gram Stain Result No organisms seen [facility] Interpretation and review of laboratory results Abnormal [facility] Basic metabolic 1998 panelon 11-20-2022 Anion gap [Moles/Vol] 5 mmol/L 3 - 13 mmol/L [facility] Calcium [Mass/Vol] 8.4 mg/dL 8.4 - 10. 4 mg/dL [facility] Chloride [Moles/Vol] 102 mmol/L 98 - 10 7 mmol/L [facility] CO2 [Moles/Vol] 28 mmol/L 22 - 30 mmol/L [facility] Creatinine [Mass/Vol] 0.68 mg/dL 0.52 - 1.04 mg/dL [facility] GFR/1.73 sq M.predicted MDRD (S/P/Bld) [Vol rate/Area] - PINF [facility] Glucose [Mass/Vol] 104 mg/dL High 70 - 100 mg/dL [facility] Interpretation and review of laboratory results Abnormal [facility] Potassium [Moles/Vol] 4.2 mmol/L 3.5 - 5.1 mmol/L [facility] Sodium [Moles/Vol] 135 mmol/L 135 - 145 mmol/L [facility] Urea nitrogen [Mass/Vol] 20 mg/dL High 7 - 17 mg/dL [facility] Anion gap [Moles/Vol] 5 mmol/L 3 - 13 mmol/L [facility] Calcium [Mass/Vol] 8.3 mg/dL Low 8.4 - 10. 4 mg/dL [facility] Chloride [Moles/Vol] 104 mmol/L 98 - 10 7 mmol/L [facility] CO2 [Moles/Vol] 26 mmol/L 22 - 30 mmol/L [facility] Creatinine [Mass/Vol] 0.65 mg/dL 0.52 - 1.04 mg/dL [facility] GFR/1.73 sq M.predicted MDRD (S/P/Bld) [Vol rate/Area] - PINF [facility] Glucose [Mass/Vol] 110 mg/dL High 70 - 100 mg/dL [facility] Interpretation and review of laboratory results Abnormal [facility] Potassium [Moles/Vol] 4.4 mmol/L 3.5 - 5.1 mmol/L [facility] Sodium [Moles/Vol] 135 mmol/L 135 - 145 mmol/L [facility] Urea nitrogen [Mass/Vol] 24 mg/dL High 7 - 17 mg/dL [facility] CBC W Auto Differential pane l (Bld)Ordered By: Suman Reid on 11-20-2022 Basophils (Bld) [#/Vol] 0.0 10*3/uL 0.0 - 0.2 10*3/uL [facility] Basophils/100 WBC (Bld) 0.6 % 0.0 - 2.0 % [facility] Eosinophils (Bld) [#/Vol] 0.3 10*3/uL 0.0 - 0.5 10*3/uL [facility] Eosinophils/100 WBC (Bld) 4.5 % 1.0 - 6.0 % [facility] Erythrocyte distribution width (RBC) [Ratio] 21.9 % High 11.5 - 14.5 % [facility] Hematocrit (Bld) [Volume fraction] 26.6 % Low 35.0 - 47.0 % [facility] Hemoglobin (Bld) [Mass/Vol] 8.5 g/dL Low 11.7 - 16.0 g/dL [facility] Interpretation and review of laboratory results Abnormal [facility] Lymphocytes (Bld) [#/Vol] 1.4 10*3/uL 1.0 - 4.3 10*3/uL [facility] Lymphocytes/100 WBC (Bld) 19.7 % Low 20.0 - 40.0 % [facility] MCH (RBC) [Entitic mass] 25.5 pg Low 26.0 - 34.0 pg [facility] MCHC (RBC) [Mass/Vol] 32.0 % 32.0 - 36.0 % [facility] MCV (RBC) [Entitic vol] 79.7 fL Low 80.0 - 98.0 fL [facility] Monocytes (Bld) [#/Vol] 0.9 10*3/uL High 0.0 - 0.8 10*3/uL [facility] Monocytes/100 WBC (Bld) 12.7 % High 2.0 - 10.0 % [facility] Neutrophils (Bld) [#/Vol] 4.4 10*3/uL 1.8 - 7.0 10*3/uL [facility] Neutrophils/100 WBC (Bld) 62.5 % 40.0 - 80.0 % [facility] Nucleated RBC/100 WBC (Bld) [Ratio] 0.1 % [facility] Platelet mean volume (Bld) [Entitic vol] 7.5 fL 7.4 - 12.4 fL [facility] Platelets (Bld) [#/Vol] 422 10*3/uL 140 - 440 10*3/uL [facility] RBC (Bld) [#/Vol] 3.33 10*6/uL Low 3.8 - 5.20 10*6/uL [facility] WBC (Bld) [#/Vol] 7.1 10*3/uL 3.6 - 10.7 10*3/uL [facility] CBC W Auto Differential pane l (Bld)Ordered By: Arminda Dooley on 11-20-2022 Basophils (Bld) [#/Vol] 0.0 10*3/uL 0.0 - 0.2 10*3/uL [facility] Basophils/100 WBC (Bld) 0.6 % 0.0 - 2.0 % [facility] Eosinophils (Bld) [#/Vol] 0.4 10*3/uL 0.0 - 0.5 10*3/uL [facility] Eosinophils/100 WBC (Bld) 5.4 % 1.0 - 6.0 % [facility] Erythrocyte distribution width (RBC) [Ratio] 21.7 % High 11.5 - 14.5 % [facility] Hematocrit (Bld) [Volume fraction] 24.1 % Low 35.0 - 47.0 % [facility] Hemoglobin (Bld) [Mass/Vol] 7.5 g/dL Low 11.7 - 16.0 g/dL [facility] Interpretation and review of laboratory results Abnormal [facility] Lymphocytes (Bld) [#/Vol] 1.7 10*3/uL 1.0 - 4.3 10*3/uL [facility] Lymphocytes/100 WBC (Bld) 22.3 % 20.0 - 40.0 % [facility] MCH (RBC) [Entitic mass] 25.1 pg Low 26.0 - 34.[address] [facility] MCHC (RBC) [Mass/Vol] 31.1 % Low 32.0 - 36.0 % [facility] MCV (RBC) [Entitic vol] 80.5 fL 80.0 - 98.[address] [facility] Monocytes (Bld) [#/Vol] 1.0 10*3/uL High 0.0 - 0.8 10*3/uL [facility] Monocytes/100 WBC (Bld) 14.0 % High 2.0 - 10.0 % [facility] Neutrophils (Bld) [#/Vol] 4.3 10*3/uL 1.8 - 7.0 10*3/uL [facility] Neutrophils/100 WBC (Bld) 57.7 % 40.0 - 80.0 % [facility] Nucleated RBC/100 WBC (Bld) [Ratio] 0.1 % [facility] Platelet mean volume (Bld) [Entitic vol] 8.2 fL 7.4 - 12.[address] [facility] Platelets (Bld) [#/Vol] 431 10*3/uL 140 - 440 10*3/uL [facility] RBC (Bld) [#/Vol] 3.00 10*6/uL Low 3.8 - 5.20 10*6/uL [facility] WBC (Bld) [#/Vol] 7.4 10*3/uL 3.6 - 10.7 10*3/uL [facility] Cobalamin (Vitamin B12) [Mas s/Vol]on 11-20-2022 Interpretation and review of laboratory results Normal [facility] Ferritin [Mass/Vol]on 2022 Interpretation and review of laboratory results Normal [facility] Folate [Mass/Vol]on 11-20-19 Interpretation and review of laboratory results Normal [facility] Interpretation and review of laboratory results Normal [facility] Iron and Iron binding capaci ty panelon 11-20-2022 Interpretation and review of laboratory results Abnormal [facility] Iron [Mass/Vol] 25 ug/dL Low 37 - 170 ug/dL [facility] Iron binding capacity [Mass/Vol] 317 ug/dL 261 - 497 ug/dL [facility] Iron saturation [Mass fraction] 8 % Low 15 - 50 % [facility] Laboratory - Chemistry and C hemistry - challengeon 11-20-2022 Folate [Mass/Vol] 10.2 ng/mL 2.9 - PINF ng/mL [facility] Folate [Mass/Vol] 7.7 ng/mL 2.9 - PINF ng/mL [facility] Cobalamin (Vitamin B12) [Mass/Vol] 325 pg/mL 239 - 931 pg/mL [facility] Ferritin [Mass/Vol] 18 ng/mL 11 - 264 ng/mL [facility] TSH Qn 2.406 m[IU]/L [facility] Laboratory - Microbiology an d Antimicrobial susceptibilityOrdered By: David Howard on 11-20-2022 Bacteria identified Aer cx Nom (Unsp spec) Few Enterobacter cloacae complex Abnormal [facility] Bacteria identified Aer cx Nom (Unsp spec) Few Enterococcus faecalis Abnormal [facility] Occult blood panel IA (Stl)O rdered By: Tracy Locke on 11-20-2022 Fecal occult blood Negative Negative [facility] Interpretation and review of laboratory results Normal [facility] TSH Qnon 11-20-2022 Interpretation and review of laboratory results Normal [facility] Basic metabolic 1998 panelon 11-19-2022 Anion gap [Moles/Vol] 3 mmol/L 3 - 13 mmol/L [facility] Calcium [Mass/Vol] 8.8 mg/dL 8.4 - 10. 4 mg/dL [facility] Chloride [Moles/Vol] 103 mmol/L 98 - 10 7 mmol/L [facility] CO2 [Moles/Vol] 31 mmol/L High 22 - 30 mmol/L [facility] Creatinine [Mass/Vol] 0.67 mg/dL 0.52 - 1.04 mg/dL [facility] GFR/1.73 sq M.predicted MDRD (S/P/Bld) [Vol rate/Area] - PINF [facility] Glucose [Mass/Vol] 96 mg/dL 70 - 100 mg/dL [facility] Interpretation and review of laboratory results Abnormal [facility] Potassium [Moles/Vol] 4.4 mmol/L 3.5 - 5.1 mmol/L [facility] Sodium [Moles/Vol] 136 mmol/L 135 - 145 mmol/L [facility] Urea nitrogen [Mass/Vol] 25 mg/dL High 7 - 17 mg/dL [facility] CBC W Auto Differential pane l (Bld)on 11-19-2022 Basophils (Bld) [#/Vol] 0.0 10*3/uL 0.0 - 0.2 10*3/uL [facility] Basophils/100 WBC (Bld) 0.5 % 0.0 - 2.0 % [facility] Eosinophils (Bld) [#/Vol] 0.4 10*3/uL 0.0 - 0.5 10*3/uL [facility] Eosinophils/100 WBC (Bld) 4.4 % 1.0 - 6.0 % [facility] Erythrocyte distribution width (RBC) [Ratio] 22.1 % High 11.5 - 14.5 % [facility] Hematocrit (Bld) [Volume fraction] 27.0 % Low 35.0 - 47.0 % [facility] Hemoglobin (Bld) [Mass/Vol] 8.7 g/dL Low 11.7 - 16.0 g/dL [facility] Interpretation and review of laboratory results Abnormal [facility] Lymphocytes (Bld) [#/Vol] 2.0 10*3/uL 1.0 - 4.3 10*3/uL [facility] Lymphocytes/100 WBC (Bld) 23.4 % 20.0 - 40.0 % [facility] MCH (RBC) [Entitic mass] 25.4 pg Low 26.0 - 34.0 pg [facility] MCHC (RBC) [Mass/Vol] 32.1 % 32.0 - 36.0 % [facility] MCV (RBC) [Entitic vol] 79.2 fL Low 80.0 - 98.0 fL [facility] Monocytes (Bld) [#/Vol] 1.1 10*3/uL High 0.0 - 0.8 10*3/uL [facility] Monocytes/100 WBC (Bld) 13.0 % High 2.0 - 10.0 % [facility] Neutrophils (Bld) [#/Vol] 4.9 10*3/uL 1.8 - 7.0 10*3/uL [facility] Neutrophils/100 WBC (Bld) 58.7 % 40.0 - 80.0 % [facility] Nucleated RBC/100 WBC (Bld) [Ratio] 0.1 % [facility] Platelet mean volume (Bld) [Entitic vol] 7.9 fL 7.4 - 12.4 fL [facility] Platelets (Bld) [#/Vol] 453 10*3/uL High 140 - 440 10*3/uL [facility] RBC (Bld) [#/Vol] 3.41 10*6/uL Low 3.8 - 5.20 10*6/uL [facility] WBC (Bld) [#/Vol] 8.4 10*3/uL 3.6 - 10.7 10*3/uL [facility] Basic metabolic 1998 panelOr dered By: Al Shields on 11-18-2022 Anion gap [Moles/Vol] 7 mmol/L 3 - 13 mmol/L [facility] Calcium [Mass/Vol] 8.4 mg/dL 8.4 - 10. 4 mg/dL [facility] Chloride [Moles/Vol] 104 mmol/L 98 - 10 7 mmol/L [facility] CO2 [Moles/Vol] 26 mmol/L 22 - 30 mmol/L [facility] Creatinine [Mass/Vol] 0.72 mg/dL 0.52 - 1.04 mg/dL [facility] GFR/1.73 sq M.predicted MDRD (S/P/Bld) [Vol rate/Area] - PINF [facility] Glucose [Mass/Vol] 120 mg/dL High 70 - 100 mg/dL [facility] Interpretation and review of laboratory results Abnormal [facility] Potassium [Moles/Vol] 3.8 mmol/L 3.5 - 5.1 mmol/L [facility] Sodium [Moles/Vol] 137 mmol/L 135 - 145 mmol/L [facility] Urea nitrogen [Mass/Vol] 29 mg/dL High 7 - 17 mg/dL [facility] CBC W Auto Differential pane l (Bld)on 11-18-2022 Basophils (Bld) [#/Vol] 0.1 10*3/uL 0.0 - 0.2 10*3/uL [facility] Basophils/100 WBC (Bld) 0.8 % 0.0 - 2.0 % [facility] Eosinophils (Bld) [#/Vol] 0.1 10*3/uL 0.0 - 0.5 10*3/uL [facility] Eosinophils/100 WBC (Bld) 0.8 % Low 1.0 - 6.0 % [facility] Erythrocyte distribution width (RBC) [Ratio] 22.0 % High 11.5 - 14.5 % [facility] Hematocrit (Bld) [Volume fraction] 26.6 % Low 35.0 - 47.0 % [facility] Hemoglobin (Bld) [Mass/Vol] 8.6 g/dL Low 11.7 - 16.0 g/dL [facility] Interpretation and review of laboratory results Abnormal [facility] Lymphocytes (Bld) [#/Vol] 2.1 10*3/uL 1.0 - 4.3 10*3/uL [facility] Lymphocytes/100 WBC (Bld) 22.1 % 20.0 - 40.0 % [facility] MCH (RBC) [Entitic mass] 26.1 pg 26.0 - 34.0 pg [facility] MCHC (RBC) [Mass/Vol] 32.4 % 32.0 - 36.0 % [facility] MCV (RBC) [Entitic vol] 80.5 fL 80.0 - 98.0 fL [facility] Monocytes (Bld) [#/Vol] 1.1 10*3/uL High 0.0 - 0.8 10*3/uL [facility] Monocytes/100 WBC (Bld) 11.8 % High 2.0 - 10.0 % [facility] Neutrophils (Bld) [#/Vol] 6.0 10*3/uL 1.8 - 7.0 10*3/uL [facility] Neutrophils/100 WBC (Bld) 64.5 % 40.0 - 80.0 % [facility] Nucleated RBC/100 WBC (Bld) [Ratio] 0.1 % [facility] Platelet mean volume (Bld) [Entitic vol] 7.4 fL 7.4 - 12.4 fL [facility] Platelets (Bld) [#/Vol] 413 10*3/uL 140 - 440 10*3/uL [facility] RBC (Bld) [#/Vol] 3.30 10*6/uL Low 3.8 - 5.20 10*6/uL [facility] WBC (Bld) [#/Vol] 9.3 10*3/uL 3.6 - 10.7 10*3/uL [facility] Laboratory - Chemistry and C hemistry - challengeon 11-18-2022 Glucose [Mass/Vol] 86 mg/dL 70 - 100 mg/dL [facility] Glucose [Mass/Vol] 101 mg/dL High 70 - 100 mg/dL [facility] Glucose [Mass/Vol] 99 mg/dL 70 - 100 mg/dL [facility] No Panel Informationon 11-18 Interpretation and review of laboratory results Normal [facility] Interpretation and review of laboratory results Abnormal [facility] Interpretation and review of laboratory results Normal [facility] Bacteria identified Anaer cx Nom (Unsp spec)Ordered By: Elin Angulo on 11-17-2022 Interpretation and review of laboratory results Normal [facility] Basic metabolic 1998 panelon 11-17-2022 Anion gap [Moles/Vol] 5 mmol/L 3 - 13 mmol/L [facility] Calcium [Mass/Vol] 8.8 mg/dL 8.4 - 10. 4 mg/dL [facility] Chloride [Moles/Vol] 101 mmol/L 98 - 10 7 mmol/L [facility] CO2 [Moles/Vol] 30 mmol/L 22 - 30 mmol/L [facility] Creatinine [Mass/Vol] 0.67 mg/dL 0.52 - 1.04 mg/dL [facility] GFR/1.73 sq M.predicted MDRD (S/P/Bld) [Vol rate/Area] - PINF [facility] Glucose [Mass/Vol] 211 mg/dL High 70 - 100 mg/dL [facility] Interpretation and review of laboratory results Abnormal [facility] Potassium [Moles/Vol] 4.8 mmol/L 3.5 - 5.1 mmol/L [facility] Sodium [Moles/Vol] 135 mmol/L 135 - 145 mmol/L [facility] Urea nitrogen [Mass/Vol] 22 mg/dL High 7 - 17 mg/dL [facility] CBC W Auto Differential pane l (Bld)on 11-17-2022 Basophils (Bld) [#/Vol] 0.0 10*3/uL 0.0 - 0.2 10*3/uL [facility] Basophils/100 WBC (Bld) 0.3 % 0.0 - 2.0 % [facility] Eosinophils (Bld) [#/Vol] 0.0 10*3/uL 0.0 - 0.5 10*3/uL [facility] Eosinophils/100 WBC (Bld) 0.0 % Low 1.0 - 6.0 % [facility] Erythrocyte distribution width (RBC) [Ratio] 22.3 % High 11.5 - 14.5 % [facility] Hematocrit (Bld) [Volume fraction] 29.1 % Low 35.0 - 47.0 % [facility] Hemoglobin (Bld) [Mass/Vol] 9.0 g/dL Low 11.7 - 16.0 g/dL [facility] Interpretation and review of laboratory results Abnormal [facility] Lymphocytes (Bld) [#/Vol] 0.6 10*3/uL Low 1.0 - 4.3 10*3/uL [facility] Lymphocytes/100 WBC (Bld) 7.1 % Low 20.0 - 40.0 % [facility] MCH (RBC) [Entitic mass] 25.1 pg Low 26.0 - 34.0 pg [facility] MCHC (RBC) [Mass/Vol] 31.0 % Low 32.0 - 36.0 % [facility] MCV (RBC) [Entitic vol] 81.0 fL 80.0 - 98.0 fL [facility] Monocytes (Bld) [#/Vol] 0.3 10*3/uL 0.0 - 0.8 10*3/uL [facility] Monocytes/100 WBC (Bld) 3.3 % 2.0 - 10.0 % [facility] Neutrophils (Bld) [#/Vol] 7.9 10*3/uL High 1.8 - 7.0 10*3/uL [facility] Neutrophils/100 WBC (Bld) 89.3 % High 40.0 - 80.0 % [facility] Nucleated RBC/100 WBC (Bld) [Ratio] 0.1 % [facility] Platelet mean volume (Bld) [Entitic vol] 7.5 fL 7.4 - 12.4 fL [facility] Platelets (Bld) [#/Vol] 405 10*3/uL 140 - 440 10*3/uL [facility] RBC (Bld) [#/Vol] 3.59 10*6/uL Low 3.8 - 5.20 10*6/uL [facility] WBC (Bld) [#/Vol] 8.8 10*3/uL 3.6 - 10.7 10*3/uL [facility] HbA1c (Bld) [Mass fraction]o n 11-17-2022 Glucose [Mass/Vol] 108 mg/dL [facility] HbA1c (Bld) [Mass/Vol] 5.4 % NINF - 5.7 % [facility] Laboratory - Chemistry and C hemistry - challengeon 11-17-2022 Glucose [Mass/Vol] 100 mg/dL 70 - 100 mg/dL [facility] Glucose [Mass/Vol] 102 mg/dL High 70 - 100 mg/dL [facility] Glucose [Mass/Vol] 117 mg/dL High 70 - 100 mg/dL [facility] Laboratory - Microbiology an d Antimicrobial susceptibilityOrdered By: Elin Angulo on 11-17-2022 Bacteria identified Anaer cx Nom (Unsp spec) No growth at 5 days [facility] No Panel Informationon 11-17 Interpretation and review of laboratory results Normal [facility] Interpretation and review of laboratory results Abnormal [facility] Interpretation and review of laboratory results Abnormal [facility] Laboratory - Coagulationon 0 11-16-2022 PT Coag (Bld) [Time] 10.4 s 9.0 - 1 2.0 s [facility] PT Coag (Bld) [Time]on 11-16 INR Coag (PPP) [Relative time] 1.0 {INR} 0.9 - 1.1 [facility] Interpretation and review of laboratory results Normal [facility] Basic metabolic 1998 panelon 11-15-2022 Anion gap [Moles/Vol] 5 mmol/L 3 - 13 mmol/L [facility] Calcium [Mass/Vol] 8.9 mg/dL 8.4 - 10. 4 mg/dL [facility] Chloride [Moles/Vol] 100 mmol/L 98 - 10 7 mmol/L [facility] CO2 [Moles/Vol] 28 mmol/L 22 - 30 mmol/L [facility] Creatinine [Mass/Vol] 0.71 mg/dL 0.52 - 1.04 mg/dL [facility] GFR/1.73 sq M.predicted MDRD (S/P/Bld) [Vol rate/Area] - PINF [facility] Glucose [Mass/Vol] 166 mg/dL High 70 - 100 mg/dL [facility] Interpretation and review of laboratory results Abnormal [facility] Potassium [Moles/Vol] 4.2 mmol/L 3.5 - 5.1 mmol/L [facility] Sodium [Moles/Vol] 133 mmol/L Low 135 - 145 mmol/L [facility] Urea nitrogen [Mass/Vol] 22 mg/dL High 7 - 17 mg/dL [facility] CBC panel Auto (Bld)on 11-15 Erythrocyte distribution width (RBC) [Ratio] 22.2 % High 11.5 - 14.5 % [facility] Hematocrit (Bld) [Volume fraction] 27.7 % Low 35.0 - 47.0 % [facility] Hemoglobin (Bld) [Mass/Vol] 8.8 g/dL Low 11.7 - 16.0 g/dL [facility] Interpretation and review of laboratory results Abnormal [facility] MCH (RBC) [Entitic mass] 25.7 pg Low 26.0 - 34.0 pg [facility] MCHC (RBC) [Mass/Vol] 31.8 % Low 32.0 - 36.0 % [facility] MCV (RBC) [Entitic vol] 80.9 fL 80.0 - 98.0 fL [facility] Platelet mean volume (Bld) [Entitic vol] 7.9 fL 7.4 - 12.4 fL [facility] Platelets (Bld) [#/Vol] 350 10*3/uL 140 - 440 10*3/uL [facility] RBC (Bld) [#/Vol] 3.42 10*6/uL Low 3.8 - 5.20 10*6/uL [facility] WBC (Bld) [#/Vol] 11.8 10*3/uL High 3.6 - 10.7 10*3/uL [facility] Bacteria identified Aer cx N om (Unsp spec)Ordered By: Isabel Zelaya on 11-14-2022 Gram Stain Result Moderate Polymorphon uclear leukocytes per low power field [facility] Gram Stain Result No organisms seen [facility] Interpretation and review of laboratory results Abnormal [facility] Blood type and Crossmatch pa florin (Bld)on 11-14-2022 ABO group Nom (Bld) O [facility] Blood group antibody screen GEL Ql Negative [facility] D Ag Ql (RBC) Positive [facility] Laboratory - Microbiology an d Antimicrobial susceptibilityOrdered By: Isabel Zelaya on 11-14-2022 Bacteria identified Aer cx Nom (Unsp spec) Culture in progress [facility] Bacteria identified Aer cx Nom (Unsp spec) Few Escherichia coli Abnormal [facility] CBC panel Auto (Bld)Ordered By: Ann Marie Moraes on 11-13-2022 Erythrocyte distribution width (RBC) [Ratio] 22.7 % High 11.5 - 14.5 % [facility] Hematocrit (Bld) [Volume fraction] 28.8 % Low 35.0 - 47.0 % [facility] Hemoglobin (Bld) [Mass/Vol] 9.1 g/dL Low 11.7 - 16.0 g/dL [facility] Interpretation and review of laboratory results Abnormal [facility] MCH (RBC) [Entitic mass] 25.7 pg Low 26.0 - 34.0 pg [facility] MCHC (RBC) [Mass/Vol] 31.7 % Low 32.0 - 36.0 % [facility] MCV (RBC) [Entitic vol] 80.9 fL 80.0 - 98.0 fL [facility] Platelet mean volume (Bld) [Entitic vol] 7.9 fL 7.4 - 12.4 fL [facility] Platelets (Bld) [#/Vol] 384 10*3/uL 140 - 440 10*3/uL [facility] RBC (Bld) [#/Vol] 3.56 10*6/uL Low 3.8 - 5.20 10*6/uL [facility] WBC (Bld) [#/Vol] 7.3 10*3/uL 3.6 - 10.7 10*3/uL [facility] Basic metabolic 1998 panelon 11-12-2022 Anion gap [Moles/Vol] 8 mmol/L 3 - 13 mmol/L [facility] Calcium [Mass/Vol] 8.6 mg/dL 8.4 - 10. 4 mg/dL [facility] Chloride [Moles/Vol] 101 mmol/L 98 - 10 7 mmol/L [facility] CO2 [Moles/Vol] 25 mmol/L 22 - 30 mmol/L [facility] Creatinine [Mass/Vol] 0.75 mg/dL 0.52 - 1.04 mg/dL [facility] GFR/1.73 sq M.predicted MDRD (S/P/Bld) [Vol rate/Area] 89.6 mL/min/{1.73_m2} - PINF [facility] Glucose [Mass/Vol] 175 mg/dL High 70 - 100 mg/dL [facility] Interpretation and review of laboratory results Abnormal [facility] Potassium [Moles/Vol] 4.3 mmol/L 3.5 - 5.1 mmol/L [facility] Sodium [Moles/Vol] 134 mmol/L Low 135 - 145 mmol/L [facility] Urea nitrogen [Mass/Vol] 18 mg/dL High 7 - 17 mg/dL [facility] CBC panel Auto (Bld)Ordered By: Tariq Root on 11-12-2022 Erythrocyte distribution width (RBC) [Ratio] 22.5 % High 11.5 - 14.5 % [facility] Hematocrit (Bld) [Volume fraction] 27.5 % Low 35.0 - 47.0 % [facility] Hemoglobin (Bld) [Mass/Vol] 8.9 g/dL Low 11.7 - 16.0 g/dL [facility] Interpretation and review of laboratory results Abnormal [facility] MCH (RBC) [Entitic mass] 26.1 pg 26.0 - 34.0 pg [facility] MCHC (RBC) [Mass/Vol] 32.5 % 32.0 - 36.0 % [facility] MCV (RBC) [Entitic vol] 80.3 fL 80.0 - 98.0 fL [facility] Platelet mean volume (Bld) [Entitic vol] 7.6 fL 7.4 - 12.4 fL [facility] Platelets (Bld) [#/Vol] 375 10*3/uL 140 - 440 10*3/uL [facility] RBC (Bld) [#/Vol] 3.43 10*6/uL Low 3.8 - 5.20 10*6/uL [facility] WBC (Bld) [#/Vol] 9.6 10*3/uL 3.6 - 10.7 10*3/uL [facility] Basic metabolic 1998 panelon 11-11-2022 Anion gap [Moles/Vol] 6 mmol/L 3 - 13 mmol/L [facility] Calcium [Mass/Vol] 8.6 mg/dL 8.4 - 10. 4 mg/dL [facility] Chloride [Moles/Vol] 101 mmol/L 98 - 10 7 mmol/L [facility] CO2 [Moles/Vol] 27 mmol/L 22 - 30 mmol/L [facility] Creatinine [Mass/Vol] 0.66 mg/dL 0.52 - 1.04 mg/dL [facility] GFR/1.73 sq M.predicted MDRD (S/P/Bld) [Vol rate/Area] - PINF [facility] Glucose [Mass/Vol] 116 mg/dL High 70 - 100 mg/dL [facility] Interpretation and review of laboratory results Abnormal [facility] Potassium [Moles/Vol] 3.8 mmol/L 3.5 - 5.1 mmol/L [facility] Sodium [Moles/Vol] 134 mmol/L Low 135 - 145 mmol/L [facility] Urea nitrogen [Mass/Vol] 11 mg/dL 7 - 17 mg/dL [facility] CBC panel Auto (Bld)Ordered By: Renea Painter on 11-11-2022 Erythrocyte distribution width (RBC) [Ratio] 23.5 % High 11.5 - 14.5 % [facility] Hematocrit (Bld) [Volume fraction] 27.7 % Low 35.0 - 47.0 % [facility] Hemoglobin (Bld) [Mass/Vol] 8.9 g/dL Low 11.7 - 16.0 g/dL [facility] Interpretation and review of laboratory results Abnormal [facility] MCH (RBC) [Entitic mass] 25.7 pg Low 26.0 - 34.0 pg [facility] MCHC (RBC) [Mass/Vol] 31.9 % Low 32.0 - 36.0 % [facility] MCV (RBC) [Entitic vol] 80.4 fL 80.0 - 98.0 fL [facility] Platelet mean volume (Bld) [Entitic vol] 7.4 fL 7.4 - 12.4 fL [facility] Platelets (Bld) [#/Vol] 354 10*3/uL 140 - 440 10*3/uL [facility] RBC (Bld) [#/Vol] 3.45 10*6/uL Low 3.8 - 5.20 10*6/uL [facility] WBC (Bld) [#/Vol] 7.4 10*3/uL 3.6 - 10.7 10*3/uL [email or web address] Laboratory - Chemistry and C hemistry - challengeon 11-11-2022 Procalcitonin [Mass/Vol] 0.02 ng/mL 0.00 - 0.09 ng/mL [facility] No Panel InformationOrdered By: Yessenia Jara on 11-11-2022 P [place] 41 degrees [facility] Work Phone: MO Interval 162 ms [facility] Work Phone: QRS [place] -20 degrees [facility] Work Phone: QRSD Interval 94 ms [facility] Work Phone: QT Interval 363 ms [facility] Work Phone: QTC Interval 450 ms [facility] Work Phone: [phone] T Wave [place] 42 degrees [facility] Work Phone: [facility] Work Phone: No Panel Informationon 11-11 [facility] Procalcitonin [Mass/Vol]on 0 11-11-2022 Interpretation and review of laboratory results Normal [facility] Vital signsOrdered By: Ankur Jara on 11-11-2022 Heart rate 92 /min bpm [facility] Work Phone: Basic metabolic 1998 panelon 11-10-2022 Anion gap [Moles/Vol] 7 mmol/L 3 - 13 mmol/L [facility] Calcium [Mass/Vol] 8.7 mg/dL 8.4 - 10. 4 mg/dL [facility] Chloride [Moles/Vol] 103 mmol/L 98 - 10 7 mmol/L [facility] CO2 [Moles/Vol] 25 mmol/L 22 - 30 mmol/L [facility] Creatinine [Mass/Vol] 0.55 mg/dL 0.52 - 1.04 mg/dL [facility] GFR/1.73 sq M.predicted MDRD (S/P/Bld) [Vol rate/Area] - PINF [facility] Glucose [Mass/Vol] 91 mg/dL 70 - 100 mg/dL [facility] Potassium [Moles/Vol] 4.4 mmol/L 3.5 - 5.1 mmol/L [facility] Sodium [Moles/Vol] 135 mmol/L 135 - 145 mmol/L [facility] Urea nitrogen [Mass/Vol] 6 mg/dL Low 7 - 17 mg/dL [facility] Blood type and Crossmatch pa florin (Bld)on 11-10-2022 ABO group Nom (Bld) O [facility] Blood group antibody screen GEL Ql Negative [facility] D Ag Ql (RBC) Positive [facility] CBC W Auto Differential pane l (Bld)Ordered By: Pauline Hagan on 11-10-2022 Basophils (Bld) [#/Vol] 0.1 10*3/uL 0.0 - 0.2 10*3/uL [facility] Basophils/100 WBC (Bld) 0.8 % 0.0 - 2.0 % [facility] Eosinophils (Bld) [#/Vol] 0.3 10*3/uL 0.0 - 0.5 10*3/uL [facility] Eosinophils/100 WBC (Bld) 3.7 % 1.0 - 6.0 % [facility] Erythrocyte distribution width (RBC) [Ratio] 23.5 % High 11.5 - 14.5 % [facility] Hematocrit (Bld) [Volume fraction] 29.4 % Low 35.0 - 47.0 % [facility] Hemoglobin (Bld) [Mass/Vol] 9.5 g/dL Low 11.7 - 16.0 g/dL [facility] Interpretation and review of laboratory results Abnormal [facility] Lymphocytes (Bld) [#/Vol] 1.0 10*3/uL 1.0 - 4.3 10*3/uL [facility] Lymphocytes/100 WBC (Bld) 13.4 % Low 20.0 - 40.0 % [facility] MCH (RBC) [Entitic mass] 26.4 pg 26.0 - 34.0 pg [facility] MCHC (RBC) [Mass/Vol] 32.3 % 32.0 - 36.0 % [facility] MCV (RBC) [Entitic vol] 81.8 fL 80.0 - 98.0 fL [facility] Monocytes (Bld) [#/Vol] 0.9 10*3/uL High 0.0 - 0.8 10*3/uL [facility] Monocytes/100 WBC (Bld) 11.7 % High 2.0 - 10.0 % [facility] Neutrophils (Bld) [#/Vol] 5.4 10*3/uL 1.8 - 7.0 10*3/uL [facility] Neutrophils/100 WBC (Bld) 70.4 % 40.0 - 80.0 % [facility] Nucleated RBC/100 WBC (Bld) [Ratio] 0.1 % [facility] Platelet mean volume (Bld) [Entitic vol] 7.0 fL Low 7.4 - 12.4 fL [facility] Platelets (Bld) [#/Vol] 341 10*3/uL 140 - 440 10*3/uL [facility] RBC (Bld) [#/Vol] 3.59 10*6/uL Low 3.8 - 5.20 10*6/uL [facility] WBC (Bld) [#/Vol] 7.7 10*3/uL 3.6 - 10.7 10*3/uL [facility] ESR (Bld) [Velocity]Ordered By: Debo Murphy on 11-10-2022 Interpretation and review of laboratory results Abnormal [facility] Sed Rate 71 High [facility] Laboratory - Chemistry and C hemistry - challengeon 11-10-2022 CRP [Mass/Vol] 53.0 mg/L High NINF - 10.0 mg/L [facility] Laboratory - Coagulationon 0 11-10-2022 PT Coag (Bld) [Time] 11.2 s 9.0 - 1 2.0 s [facility] No Panel Informationon 11-10 Interpretation and review of laboratory results Abnormal [facility] PT Coag (Bld) [Time]on 11-10 INR Coag (PPP) [Relative time] 1.1 {INR} 0.9 - 1.1 [facility] Interpretation and review of laboratory results Normal [facility] XR Chest Single viewon 11-10 Radiology Study observation (narrative) [facility] RADIOLOGY [facility] RADIOLOGY SYSTEM [facility] XR Chest Single viewOrdered By: Samson Jc on 11-10-2022 [facility] Work Phone: XR Femur - left 2 Viewson [facility] RADIOLOGY [facility] RADIOLOGY SYSTEM [facility] Radiology Study observation (narrative) [facility] Basophil percentageOrdered B y: Dr. Hubbard on 11-06-2022 WBC (Bld) [#/Vol] 6.7 10*3/uL 4.4-11.0 [facility] Blood erythrocytes count (nu mber/volume)Ordered By: Dr. Hubbard on 11-06-2022 RBC (Bld) [#/Vol] 2.83 10*6/uL 4.2-5.4 [facility] Blood hemoglobin measurement (mass/volume)Ordered By: Dr. Hubbard on 11-06-2022 Hemoglobin (Bld) [Mass/Vol] 6.8 g/dL 12.0-15.0 [facility] Blood manual differential co mment interpretation (narrative result)Ordered By: Dr. Hubbard on 11-06-2022 Manual differential comment Aurelio (Bld) [Interp] SCANNED [facility] Comment on above: 2+ ANISOCYTOSIS Blood platelet mean volumeOr dered By: Dr. Hubbard on 11-06-2022 Platelet mean volume (Bld) [Entitic vol] 9.5 fL 6.2-12.0 [facility] Determination of erythrocyte mean corpuscular volume (MCV)Ordered By: Dr. Hubbard on 11-06-2022 MCV (RBC) [Entitic vol] 83.4 fL 81-99 [facility] Hematocrit Auto (Bld) [Volum e fraction]Ordered By: Dr. Hubbard on 11-06-2022 Hematocrit (Bld) [Volume fraction] 23.6 % 37-47 [facility] Laboratory - Hematology and Cell countsOrdered By: Dr. Hubbard on 11-06-2022 Erythrocyte distribution width (RBC) [Entitic vol] 67.2 fL 35.1-43.9 [facility] Erythrocyte distribution width (RBC) [Ratio] 22.8 % 11.6-14.6 [facility] MCH (RBC) [Entitic mass] 24.0 pg 27.0-32.0 [facility] MCHC Auto (RBC) [Mass/Vol]Or dered By: Dr. Hubbard on 11-06-2022 MCHC (RBC) [Mass/Vol] 28.8 g/dL 32-36 [facility] Platelets bldOrdered By: Dr. Hubbard on 11-06-2022 Platelets (Bld) [#/Vol] 333 10*3/uL 150-450 [facility] Basic metabolic 1998 panelon 11-02-2022 Anion gap [Moles/Vol] 8 mmol/L 3 - 13 mmol/L [facility] Calcium [Mass/Vol] 8.0 mg/dL Low 8.4 - 10. 4 mg/dL [facility] Chloride [Moles/Vol] 103 mmol/L 98 - 10 7 mmol/L [facility] CO2 [Moles/Vol] 20 mmol/L Low 22 - 30 mmol/L [facility] Creatinine [Mass/Vol] 1.05 mg/dL High 0.52 - 1.04 mg/dL [facility] GFR/1.73 sq M.predicted MDRD (S/P/Bld) [Vol rate/Area] 59.8 mL/min/{1.73_m2} Low - PINF [facility] Comment on above: Calculation based on the Chronic Kidney Disease Epidemiology Collaboration (CKD-EPI) equation refit without adjustment for race Glucose [Mass/Vol] 158 mg/dL High 70 - 100 mg/dL [facility] Interpretation and review of laboratory results Abnormal [facility] Potassium [Moles/Vol] 3.6 mmol/L 3.5 - 5.1 mmol/L [facility] Sodium [Moles/Vol] 131 mmol/L Low 135 - 145 mmol/L [facility] Urea nitrogen [Mass/Vol] 25 mg/dL High 7 - 17 mg/dL [facility] CBC W Auto Differential pane l (Bld)Ordered By: Ann Marie Moraes on 11-02-2022 Erythrocyte distribution width (RBC) [Ratio] 25.3 % High 11.5 - 14.5 % [facility] Comment on above: I-Anisocytosis Hematocrit (Bld) [Volume fraction] 23.6 % Low 35.0 - 47.0 % [facility] Hemoglobin (Bld) [Mass/Vol] 7.5 g/dL Low 11.7 - 16.0 g/dL [facility] Interpretation and review of laboratory results Abnormal [facility] MCH (RBC) [Entitic mass] 24.9 pg Low 26.0 - 34.0 pg [facility] MCHC (RBC) [Mass/Vol] 31.9 % Low 32.0 - 36.0 % [facility] MCV (RBC) [Entitic vol] 78.2 fL Low 80.0 - 98.0 fL [facility] Platelet mean volume (Bld) [Entitic vol] 8.2 fL 7.4 - 12.4 fL [facility] Platelets (Bld) [#/Vol] 290 10*3/uL 140 - 440 10*3/uL [facility] RBC (Bld) [#/Vol] 3.01 10*6/uL Low 3.8 - 5.20 10*6/uL [facility] WBC (Bld) [#/Vol] 11.6 10*3/uL High 3.6 - 10.7 10*3/uL [facility] This is a modified r eport. Previous result was Hemogram (reference range: ) on 11/02/2022 at 0220 EST [facility] Laboratory - Microbiology an d Antimicrobial susceptibilityOrdered By: Michael Marroquin on 11-02-2022 SARS-CoV-2 (COVID-19) Ag IA.rapid Ql (Resp) Negative Negative [facility] Comment on above: A negative result do es not rule out the possibility of SARS-CoV-2 infection. NAAT-based methods should be considered for symptomatic patients presenting greater than seven days after onset of symptoms. Method: Lateral flow immunoassay. Fact sheets for healthcare providers and patients can be found at the following sites: https://www.[employer].gov/media/766892/download https://www.[employer].gov/media/914630/download Manual differential performe d Ql (Bld)on 11-02-2022 Anisocytosis Ql (Bld) Slight Abnormal (none) [facility] Band form neutrophils (Bld) [#/Vol] 0.1 10*3/uL High NINF - 0.0 10*3/uL [facility] Band form neutrophils/100 WBC (Bld) 1 % High NINF - 0 % [facility] Bands Manual [address] [facility] Cells Counted Total (Bld) [#] 100 {cells} [facility] Interpretation and review of laboratory results Abnormal [facility] Lymphocytes (Bld) [#/Vol] 2.2 10*3/uL 1.0 - 4.3 10*3/uL [facility] Lymphocytes Manual 19 [facility] Lymphocytes/100 WBC (Bld) 19 % Low 20 - 40 % [facility] Microcytes Ql (Bld) Slight Abnormal (none) [facility] Monocytes (Bld) [#/Vol] 1.6 10*3/uL High 0.0 - 0.8 10*3/uL [facility] Monocytes Manual 14 [facility] Monocytes/100 WBC (Bld) 14 % High 2 - 10 % [facility] Neutrophils (Bld) [#/Vol] 7.8 10*3/uL High 1.8 - 7.0 10*3/uL [facility] Neutrophils Manual 66 [facility] Ovalocytes LM Ql (Bld) Slight Abnormal (none) [facility] Platelet morphology finding Nom (Bld) Normal [facility] Poikilocytosis LM Ql (Bld) Slight Abnormal (none) [facility] Polychromasia LM Ql (Bld) Slight Abnormal (none) [facility] Segmented neutrophils/100 WBC (Bld) 66 % 40 - 80 % [facility] Smudge cells/100 WBC (Bld) Present Abnormal (none) per 100 WBCs [facility] WBC corrected for nucl RBC (Bld) [#/Vol] 11.60 10*3/uL High 3.60 - 10.70 10*3/uL [facility] Differential perform ed on albumin slide. [facility] SARS-CoV-2 (COVID-19) Ag IA. rapid Ql (Resp)Ordered By: Michael Marroquin on 11-02-2022 Interpretation and review of laboratory results Normal [facility] Basic metabolic 1998 panelon 11-01-2022 Anion gap [Moles/Vol] 8 mmol/L 3 - 13 mmol/L [facility] Calcium [Mass/Vol] 8.1 mg/dL Low 8.4 - 10. 4 mg/dL [facility] Chloride [Moles/Vol] 105 mmol/L 98 - 10 7 mmol/L [facility] CO2 [Moles/Vol] 22 mmol/L 22 - 30 mmol/L [facility] Creatinine [Mass/Vol] 0.73 mg/dL 0.52 - 1.04 mg/dL [facility] GFR/1.73 sq M.predicted MDRD (S/P/Bld) [Vol rate/Area] - PINF [facility] Comment on above: Calculation based on the Chronic Kidney Disease Epidemiology Collaboration (CKD-EPI) equation refit without adjustment for race Glucose [Mass/Vol] 266 mg/dL High 70 - 100 mg/dL [facility] Interpretation and review of laboratory results Abnormal [facility] Potassium [Moles/Vol] 4.4 mmol/L 3.5 - 5.1 mmol/L [facility] Sodium [Moles/Vol] 134 mmol/L Low 135 - 145 mmol/L [facility] Urea nitrogen [Mass/Vol] 13 mg/dL 7 - 17 mg/dL [facility] CBC W Auto Differential pane l (Bld)Ordered By: Renea Painter on 11-01-2022 Basophils (Bld) [#/Vol] 0.0 10*3/uL 0.0 - 0.2 10*3/uL [facility] Basophils/100 WBC (Bld) 0.3 % 0.0 - 2.0 % [facility] Eosinophils (Bld) [#/Vol] 0.0 10*3/uL 0.0 - 0.5 10*3/uL [facility] Eosinophils/100 WBC (Bld) 0.0 % Low 1.0 - 6.0 % [facility] Erythrocyte distribution width (RBC) [Ratio] 23.7 % High 11.5 - 14.5 % [facility] Comment on above: I-Anisocytosis Hematocrit (Bld) [Volume fraction] 31.8 % Low 35.0 - 47.0 % [facility] Hemoglobin (Bld) [Mass/Vol] 9.8 g/dL Low 11.7 - 16.0 g/dL [facility] Interpretation and review of laboratory results Abnormal [facility] Lymphocytes (Bld) [#/Vol] 0.6 10*3/uL Low 1.0 - 4.3 10*3/uL [facility] Lymphocytes/100 WBC (Bld) 3.6 % Low 20.0 - 40.0 % [facility] MCH (RBC) [Entitic mass] 24.8 pg Low 26.0 - 34.0 pg [facility] MCHC (RBC) [Mass/Vol] 30.9 % Low 32.0 - 36.0 % [facility] MCV (RBC) [Entitic vol] 80.1 fL 80.0 - 98.0 fL [facility] Monocytes (Bld) [#/Vol] 0.4 10*3/uL 0.0 - 0.8 10*3/uL [facility] Monocytes/100 WBC (Bld) 2.8 % 2.0 - 10.0 % [facility] Neutrophils (Bld) [#/Vol] 14.6 10*3/uL High 1.8 - 7.0 10*3/uL [facility] Neutrophils/100 WBC (Bld) 93.3 % High 40.0 - 80.0 % [facility] Nucleated RBC/100 WBC (Bld) [Ratio] 0.0 % [facility] Platelet mean volume (Bld) [Entitic vol] 7.8 fL 7.4 - 12.4 fL [facility] Platelets (Bld) [#/Vol] 337 10*3/uL 140 - 440 10*3/uL [facility] RBC (Bld) [#/Vol] 3.97 10*6/uL 3.8 - 5.20 10*6/uL [facility] WBC (Bld) [#/Vol] 15.7 10*3/uL High 3.6 - 10.7 10*3/uL [facility] Hemoglobin (Bld) [Mass/Vol]O rdered By: Joy Fagan on 10-31-2022 Hematocrit (Bld) [Volume fraction] 32.4 % Low 35.0 - 47.0 % [facility] Interpretation and review of laboratory results Abnormal [facility] Laboratory - Hematology and Cell countsOrdered By: Joy Fagan on 10-31-2022 Hemoglobin (Bld) [Mass/Vol] 10.3 g/dL Low 11.7 - 16.0 g/dL [facility] No Panel Informationon 10-31 Blood Expiration Date S [facility] Crossmatch interpretation COMP [facility] Dispense Status Transfused [facility]) Product Blood Type 5100 [facility] PRODUCT CODE [id number] [facility] Unit ABO O [facility]) Unit Number [id number] [facility] Unit Number [id number] [facility] Unit RH Positive [facility] Unit Volume 300 mL [facility] Left side findings: Resting SINDHU is non-compressible. Left TBI is normal. Left PVR waveforms: Patient has right BKA Three cuff method used due to patient body habitus (no low thigh cuff). Patient has right BKA. SINDHU Patient is s/p right leg below knee amputation. Left side findings: Non-compressible resting SINDHU. Normal resting TBI. Right PVR waveforms: Normal - upper thigh. Left PVR waveforms: Normal - upper thigh, calf, ankle, metatarsal region, 1st digit, 2nd digit, 3rd digit, 4th digit and 5th digit. Normal at rest. The left posterior tibial artery and dorsalis pedis artery has multiphasic waveforms. [place] Continuous Churn Details A spectral Doppler analysis ultrasound was performed. During the study longitudinal and transverse views were obtained. Continuous wave doppler, pulsed volume recording (PVR) and photo plethysmography was performed. The exam was performed with the patient in the supine position. Study was technically difficult due to: body habitus and Wounds and amputation of right leg.. CV CPACS No Panel InformationOrdered By: Ozzie Park on 10-31-2022 Left arm BP [address] [facility] Work Phone: Left dorsalis pedis BP 267 mmHg [facility] Work Phone: Left posterior tibial 255 mmHg [facility] Work Phone: Left TBI 0.81 [facility] Work Phone: Left toe pressure [address] [facility] Work Phone: Right arm BP [address] [facility] Work Phone: Basic metabolic 1998 panelon 10-30-2022 Anion gap [Moles/Vol] 7 mmol/L 3 - 13 mmol/L [facility] Calcium [Mass/Vol] 9.0 mg/dL 8.4 - 10. 4 mg/dL [facility] [facility] Chloride [Moles/Vol] 102 mmol/L 98 - 10 7 mmol/L [facility] CO2 [Moles/Vol] 28 mmol/L 22 - 30 mmol/L [facility] Creatinine [Mass/Vol] 0.74 mg/dL 0.52 - 1.04 mg/dL [facility] GFR/1.73 sq M.predicted MDRD (S/P/Bld) [Vol rate/Area] - PINF [facility] Comment on above: Calculation based on the Chronic Kidney Disease Epidemiology Collaboration (CKD-EPI) equation refit without adjustment for race Glucose [Mass/Vol] 95 mg/dL 70 - 100 mg/dL [facility] Interpretation and review of laboratory results Normal [facility] [facility] Potassium [Moles/Vol] 3.9 mmol/L 3.5 - 5.1 mmol/L [facility] Sodium [Moles/Vol] 137 mmol/L 135 - 145 mmol/L [facility] Urea nitrogen [Mass/Vol] 15 mg/dL 7 - 17 mg/dL [facility] Blood type and Crossmatch pa florin (Bld)on 10-30-2022 ABO group Nom (Bld) O [facility] Blood group antibody screen GEL Ql Negative [facility] D Ag Ql (RBC) Positive [facility] CBC W Auto Differential pane l (Bld)Ordered By: Brigette Huitron on 10-30-2022 Basophils (Bld) [#/Vol] 0.1 10*3/uL 0.0 - 0.2 10*3/uL [facility] Basophils/100 WBC (Bld) 1.0 % 0.0 - 2.0 % [facility] Eosinophils (Bld) [#/Vol] 0.1 10*3/uL 0.0 - 0.5 10*3/uL [facility] Eosinophils/100 WBC (Bld) 1.8 % 1.0 - 6.0 % [facility] Erythrocyte distribution width (RBC) [Ratio] 23.1 % High 11.5 - 14.5 % [facility] Comment on above: I-Anisocytosis Hematocrit (Bld) [Volume fraction] 33.9 % Low 35.0 - 47.0 % [facility] Hemoglobin (Bld) [Mass/Vol] 10.6 g/dL Low 11.7 - 16.0 g/dL [facility] Interpretation and review of laboratory results Abnormal [facility] Lymphocytes (Bld) [#/Vol] 1.6 10*3/uL 1.0 - 4.3 10*3/uL [facility] Lymphocytes/100 WBC (Bld) 22.7 % 20.0 - 40.0 % [facility] MCH (RBC) [Entitic mass] 23.7 pg Low 26.0 - 34.0 pg [facility] MCHC (RBC) [Mass/Vol] 31.2 % Low 32.0 - 36.0 % [facility] MCV (RBC) [Entitic vol] 75.8 fL Low 80.0 - 98.[address] [facility] Monocytes (Bld) [#/Vol] 0.7 10*3/uL 0.0 - 0.8 10*3/uL [facility] Monocytes/100 WBC (Bld) 10.1 % High 2.0 - 10.0 % [facility] Neutrophils (Bld) [#/Vol] 4.4 10*3/uL 1.8 - 7.0 10*3/uL [facility] Neutrophils/100 WBC (Bld) 64.4 % 40.0 - 80.0 % [facility] Nucleated RBC/100 WBC (Bld) [Ratio] 0.1 % [facility] Platelet mean volume (Bld) [Entitic vol] 7.6 fL 7.4 - 12.[address] [facility] [facility] Platelets (Bld) [#/Vol] 398 10*3/uL 140 - 440 10*3/uL [facility] RBC (Bld) [#/Vol] 4.47 10*6/uL 3.8 - 5.20 10*6/uL [facility] WBC (Bld) [#/Vol] 6.9 10*3/uL 3.6 - 10.7 10*3/uL [facility] CRP [Mass/Vol]on 10-30-2022 Interpretation and review of laboratory results Abnormal [facility] ESR (Bld) [Velocity]Ordered By: Norma Zimmerman on 10-30-2022 Interpretation and review of laboratory results Abnormal [facility] Sed Rate 74 High [facility] Laboratory - Chemistry and C hemistry - challengeon 10-30-2022 CRP [Mass/Vol] 11.6 mg/L High NINF - 10.0 mg/L [facility] - Coagulationon 0 10-30-2022 PT Coag (Bld) [Time] 10.3 s 9.0 - 1 2.0 s [facility] No Panel Informationon 10-30 P [place] 50 degrees [facility] MO Interval 190 ms [facility] QRS [place] -22 degrees [facility] QRSD Interval 98 ms [facility] QT Interval 387 ms [facility] QTC Interval 444 ms [facility] T Wave [place] 17 degrees [facility] Sinus rhythm Low voltage, precordial leads Left ventricular hypertrophy Anterior Q waves, possibly due to LVH No change compared to previous ekg Electronically Signed On 10-30-2022 20:08:16 EST by Himanshu Nagy M D - 10/30/2022 IMPRESSION: Sinus rhythm Low voltage, precordial leads Left ventricular hypertrophy Anterior Q waves, possibly due to LVH No change compared to previous ekg Electronically Signed On 10-30-2022 20:08:16 EST by Himanshu Schaefer [facility] Interpretation and review of laboratory results Normal [facility] No Panel InformationOrdered By: Norma Zimmerman on 10-30-2022 [facility] PT Coag (Bld) [Time]on 10-30 INR Coag (PPP) [Relative time] 1.0 {INR} 0.9 - 1.1 [facility] Comment on above: Recommended Anticoag ulant Therapy: SEE BELOW ----- INR of 2.0 - 3.0 : - Prophylaxis of Venous Thrombosis (high-risk surgery) - Treatment of Venous Thrombosis - Treatment of Pulmonary Embolism (Includes tissue heart valves, Acute Myocardial Infarction to prevent systemic embolism, Valvular Heart Disease, and Atrial Fibrillation) ----- INR of 2.5 - 3.5 : - Mechanical Prosthetic Valves (high risk) - If oral anticoagulant therapy is used to prevent Myocardial Infarction Vital signson 10-30-2022 Heart rate 79 /min bpm [facility] XR Chest Single viewon 10-30 Radiology Study observation (narrative) [facility] No acute cardiopulmo nary process identified. Mild vascular congestion without evidence of pulmonary edema. Correlate with volume status. Report Dictated on Electronically Signed By: Joce Krishnamurthy Electronically Signed Date/Time: 10/30/2022 4:42 PM EST [facility] [employer] Patient Name: SIOBHAN MCINTOSH Exam Date/Time: 10/30/2022 16:52 Procedure: XR CHEST 1 VIEW Ordering Provider: SANDOVAL EMILY Reason For Exam: CHEST X-RAY CLINICAL INDICATION: SURGERY TECHNIQUE: AP COMPARISON: 01/27/2022 FINDINGS: Quality: Exam quality: Limited due to patient's body habitus. Lines: Spinal cord stimulator device noted terminating in the mid thoracic spine. Cardiomediastinal Silhouette: The cardiac and mediastinal silhouettes are normal. Lungs: Perihilar vascular congestion is noted without evidence of interstitial opacities. No evidence of pleural effusion or pneumothorax.. Soft tissue: The soft tissue structures appear unremarkable. Bones: No acute osseous process identified.. [facility] Joce Krishnamurthy MD - 10/30/2022 Patient Name: SIOBHAN HAAS Exam Date/Time: 10/30/2022 16:52 Procedure: XR CHEST 1 VIEW Ordering Provider: SANDOVAL EMILY Reason For Exam: CHEST X-RAY CLINICAL INDICATION: SURGERY TECHNIQUE: AP COMPARISON: 01/27/2022 FINDINGS: Quality: Exam quality: Limited due to patient's body habitus. Lines: Spinal cord stimulator device noted terminating in the mid thoracic spine. Cardiomediastinal Silhouette: The cardiac and mediastinal silhouettes are normal. Lungs: Perihilar vascular congestion is noted without evidence of interstitial opacities. No evidence of pleural effusion or pneumothorax.. Soft tissue: The soft tissue structures appear unremarkable. Bones: No acute osseous process identified.. IMPRESSION: No acute cardiopulmonary process identified. Mild vascular congestion without evidence of pulmonary edema. Correlate with volume status. Report Dictated on Electronically Signed By: Joce Krishnamurthy Electronically Signed Date/Time: 10/30/2022 4:42 PM EST [facility] XR Chest Single viewOrdered By: Joce Krishnamurthy on 10-30-2022 [facility] Work Phone: XR Femur - left 2 Viewson FINDINGS/IMPRESSION: Limitations: Limited by positioning and body [...] Ferrara Electronically Signed Date/Time: 10/30/2022 5:03 PM [facility] Patient Name: SIOBHAN MCINTOSH Exam Date/Time: 10/30/2022 16:53 Procedure: XR FEMUR 2+ VW LEFT Ordering Provider: SANDOVAL EMILY Reason For Exam: CLINICAL INDICATION: Left lower extremity pain. TECHNIQUE: 2 views of the left femur COMPARISON: CT scan 01/21/2022. [facility] Carey Ferrara MD - 10/30/2022 Patient Name: SIOBHAN HAAS Exam Date/Time: 10/30/2022 16:53 Procedure: XR FEMUR 2+ VW LEFT Ordering Provider: SANDOVAL EMILY Reason For Exam: CLINICAL INDICATION: Left lower extremity pain. TECHNIQUE: 2 views of the left femur COMPARISON: CT scan 01/21/2022. IMPRESSION: FINDINGS/IMPRESSION: Limitations: Limited by positioning and body [...] Electronically Signed Date/Time: 10/30/2022 5:03 PM EST [facility] Radiology Study observation (narrative) [employer] [facility] XR Femur - left 2 ViewsOrder ed By: Carey Ferrara on 10-30-2022 [facility] Work Phone: XR Tibia and Fibula - left 2 Viewson 10-30-2022 FINDINGS/IMPRESSION: Limitations: Somewhat limited by positioning and [...] Electronically Signed Date/Time: 10/30/2022 5:17 PM EST [employer] Patient Name: SIOBHAN MCINTOSH Exam Date/Time: 10/30/2022 16:54 Procedure: XR TIBIA FIBULA 2 VIEWS LEFT Ordering Provider: SANDOVAL EMILY Reason For Exam: CLINICAL INDICATION: Left lower extremity pain. TECHNIQUE: 2 views of the left tibia and fibula COMPARISON: Left ankle radiographs 10/25/2021, CT 01/21/2002. [facility] Carey Ferrara MD - 10/30/2022 Patient Name: SIOBHAN HAAS Exam Date/Time: 10/30/2022 16:54 Procedure: XR TIBIA FIBULA 2 VIEWS LEFT Ordering Provider: SANDOVAL EMILY Reason For Exam: CLINICAL INDICATION: Left lower extremity pain. TECHNIQUE: 2 views of the left tibia and fibula COMPARISON: Left ankle radiographs 10/25/2021, CT 01/21/2002. IMPRESSION: FINDINGS/IMPRESSION: Limitations: Somewhat limited by positioning and [...] Electronically Signed Date/Time: 10/30/2022 5:[address] [facility] Radiology Study observation (narrative) [facility] XR Tibia and Fibula - left 2 ViewsOrdered By: Carey Ferrara on 10-30-2022 [facility] Work Phone: aPTT Coag (Bld) [Time]on aPTT Coag (PPP) [Time] 29.4 s 20.0 - 30.[address] [facility] [facility] NOTE: The therapeuti c time for Heparin anticoagulation, based on Xa activity inhibition, is an APTT of 46-80 seconds. [facility] - Microbiology an d Antimicrobial susceptibilityOrdered By: David Felipe on 10-21-2022 Bacteria identified Cx Nom (Bld) No growth in 5 days. [facility] Absolute lymphocyte countOrd ered By: Dr. Trinidad on 10-20-2022 Lymphocytes Auto (Unsp spec) [#/Vol] 1.87 10*3/uL 0.83-4.51 [facility] Basophil percentageOrdered B y: Dr. Trinidad on 10-20-2022 Basophils/100 WBC (Bld) 0.5 % 0-1 [facility] Chloride [Moles/Vol] 103 mmol/L 98-107 [facility] Eosinophils/100 WBC (Bld) 3.0 % 0-5 [facility] Glucose [Mass/Vol] 101 mg/dL 74-106 [facility] Comment on above: Fasting Glucose resu lt from 100 to 125 mg/dL suggests IMPAIRED HOMEOSTASIS per A.D.A. criteria. Neutrophils (Bld) [#/Vol] 3.0 10*3/uL 2.0-7.7 [facility] Neutrophils/100 WBC (Bld) 50.5 % 47-70 [facility] Potassium [Moles/Vol] 3.8 mmol/L 3.5-5.1 [facility] Sodium [Moles/Vol] 138 mmol/L 136-145 [facility] WBC (Bld) [#/Vol] 5.9 10*3/uL 4.4-11.0 [facility] Blood erythrocytes count (nu mber/volume)Ordered By: Dr. Trinidad on 10-20-2022 RBC (Bld) [#/Vol] 4.01 10*6/uL 4.2-5.4 [facility] Blood hemoglobin measurement (mass/volume)Ordered By: Dr. Trinidad on 10-20-2022 Hemoglobin (Bld) [Mass/Vol] 8.9 g/dL 12.0-15.0 [facility] Blood lymphocytes/100 leukoc ytesOrdered By: Dr. Trinidad on 10-20-2022 Lymphocytes/100 WBC (Bld) 31.6 % 19-41 [facility] Blood monocytes/100 leukocyt esOrdered By: Dr. Trinidad on 10-20-2022 Monocytes/100 WBC (Bld) 13.0 % 0-10 [facility] Blood platelet mean volumeOr dered By: Dr. Trinidad on 10-20-2022 Platelet mean volume (Bld) [Entitic vol] 9.5 fL 6.2-12.0 [facility] Determination of erythrocyte mean corpuscular volume (MCV)Ordered By: Dr. Trinidad on 10-20-2022 MCV (RBC) [Entitic vol] 75.1 fL 81-99 [facility] Comment on above: Delta: 79.2 on 10/19 Hematocrit Auto (Bld) [Volum e fraction]Ordered By: Dr. Trinidad on 10-20-2022 Hematocrit (Bld) [Volume fraction] 30.1 % 37-47 [facility] - Chemistry and C hemistry - challengeOrdered By: Dr. Trinidad on 10-20-2022 CO2 [Moles/Vol] 28.0 mmol/L 21.0-32.0 [facility] Urea nitrogen/Creatinine [Mass ratio] 17.3 mg/mg 10-20 [facility] - Hematology and Cell countsOrdered By: Dr. Trinidad on 10-20-2022 Erythrocyte distribution width (RBC) [Entitic vol] 50.1 fL 35.1-43.9 [facility] Erythrocyte distribution width (RBC) [Ratio] 18.4 % 11.6-14.6 [facility] Immature granulocytes/100 WBC (Bld) 1.400 % 0.0-0.9 [facility] Comment on above: IG% - Immature Granu locytes (promyelocytes, myelocytes and metamyelocytes) > 1% indicates that a LEFT SHIFT is Present. MCH (RBC) [Entitic mass] 22.2 pg 27.0-32.0 [facility] Nucleated RBC/100 WBC (Bld) [Ratio] 0 % 0-5 [facility] MCHC Auto (RBC) [Mass/Vol]Or dered By: Dr. Trinidad on 10-20-2022 MCHC (RBC) [Mass/Vol] 29.6 g/dL 32-36 [facility] Comment on above: Delta: 28.0 on 10/19 No Panel InformationOrdered By: Dr. Trinidad on 10-20-2022 Estimated Creatinine Clearance Calc 66.55 ml/min [facility] Estimated GFR (MDRD) Amer 92 mL/min >60 [facility] Comment on above: GFR Calc Estimated GFR (MDRD) Non-Af Amer 76 mL/min >60 [facility] Comment on above: Non- GFR Calc Platelets bldOrdered By: Dr. Trinidad on 10-20-2022 Platelets (Bld) [#/Vol] 311 10*3/uL 150-450 [facility] Serum or plasma calcium merissa urement (mass/volume)Ordered By: Dr. Trinidad on 10-20-2022 Calcium [Mass/Vol] 8.7 mg/dL 8.5-10.1 [facility] Serum or plasma creatinine m easurement (mass/volume)Ordered By: Dr. Trinidad on 10-20-2022 Creatinine [Mass/Vol] 0.81 mg/dL 0.55-1.02 [facility] Comment on above: The validity of the calculated GFR & GFRAA in patients over 70 years has not been determined. Clinical correlation is essential. Serum or plasma urea nitroge n measurement (mass/volume)Ordered By: Dr. Trinidad on 10-20-2022 Urea nitrogen [Mass/Vol] 14 mg/dL - [facility] Thin prep Papanicolaou smear with manual screeningOrdered By: Dr. Trinidad on 10-20-2022 Thin prep Papanicolaou smear with manual screening 7 -15 [facility] Bacteria identified Cx Nom ( Wound)Ordered By: Dr. Cantu on 10-19-2022 Wound Culture Staphylococcus aureus [facility] Wound Culture Streptococcus pyogenes [facility] Iron measurement (mass/mass) Ordered By: Dr. Trinidad on 10-18-2022 Iron (Unsp spec) [Mass/Mass] 17 ug/dL 50-170 [facility] No Panel InformationOrdered By: Dr. Trinidad on 10-18-2022 Total Iron Binding Capacity 313 ug/dL 250-450 [facility] Serum or plasma iron saturat ion measurement (mass fraction)Ordered By: Dr. Trinidad on 10-18-2022 Iron saturation [Mass fraction] 5.4 % 15.0-55.0 [facility] Basophil percentageOrdered B y: David Felipe on 10-16-2022 Lactate [Moles/Vol] 1.5 mmol/L 0.4-2.0 [facility] Gram stain for investigation of transfusion reactionOrdered By: Dr. Cantu on 10-16-2022 Microscopic observation Gram stain Nom (Unsp spec) [facility] No Panel InformationOrdered By: Dr. Cantu on 10-16-2022 Troponin I High Sensitivity 7 pg/mL 3.0-54.0 [facility] Comment on above: Please Note: New Jen t Units and Gender Specific Reference Ranges. For more information see Policy Stat Procedure Liberal High Sensitivity Troponin (TNIH) and attachments. Absolute lymphocyte counton 10-15-2022 Lymphocytes Auto (Unsp spec) [#/Vol] 0.94 10*3/uL 0.83-4.51 [facility] Work Phone: Basophil percentageon 2022 Lactate [Moles/Vol] 2.0 mmol/L 0.4-2.0 [facility] Work Phone: Comment on above: Critical Result(s) C alled at: 00:54:33 10/16/2022 by: Fly Garcia TO MASTER MORGAN RN (ED) Results read back by same. Basophils/100 WBC (Bld) 0.4 % 0-1 [facility] Work Phone: Chloride [Moles/Vol] 106 mmol/L 98-107 [facility] Work Phone: Eosinophils/100 WBC (Bld) 1.0 % 0-5 [facility] Work Phone: Glucose [Mass/Vol] 136 mg/dL 74-106 [facility] Work Phone: Comment on above: Fasting Glucose resu lt greater than or equal to 126 mg/dL suggests DIABETES MELLITUS per A.D.A. criteria. Neutrophils (Bld) [#/Vol] 10.5 10*3/uL 2.0-7.7 [facility] Work Phone: Neutrophils/100 WBC (Bld) 84.3 % 47-70 [facility] Work Phone: Potassium [Moles/Vol] 4.3 mmol/L 3.5-5.1 [facility] Work Phone: Sodium [Moles/Vol] 136 mmol/L 136-145 [facility] Work Phone: WBC (Bld) [#/Vol] 12.4 10*3/uL 4.4-11.0 [facility] Work Phone: Blood erythrocytes count (nu mber/volume)on 10-15-2022 RBC (Bld) [#/Vol] 4.22 10*6/uL 4.2-5.4 [facility] Work Phone: Blood hemoglobin measurement (mass/volume)on 10-15-2022 Hemoglobin (Bld) [Mass/Vol] 9.3 g/dL 12.0-15.0 [facility] Work Phone: Blood lymphocytes/100 leukoc yteson 10-15-2022 Lymphocytes/100 WBC (Bld) 7.6 % 19-41 [facility] Work Phone: [phone] Blood monocytes/100 leukocyt eson 10-15-2022 Monocytes/100 WBC (Bld) 6.4 % 0-10 [facility] Work Phone: Blood platelet mean volumeon 10-15-2022 Platelet mean volume (Bld) [Entitic vol] 10.0 fL 6.2-12.0 [facility] Work Phone: Determination of erythrocyte mean corpuscular volume (MCV)on 10-15-2022 MCV (RBC) [Entitic vol] 77.3 fL 81-99 [facility] Work Phone: Erythrocyte sedimentation ra teOrdered By: David Felipe on 10-15-2022 ESR (Bld) [Velocity] 46 mm/h 0-30 [facility] Hematocrit Auto (Bld) [Volum e fraction]on 10-15-2022 Hematocrit (Bld) [Volume fraction] 32.6 % 37-47 [facility] Work Phone: INR in Blood by Coagulation assayOrdered By: David Felipe on 10-15-2022 INR Coag (Bld) [Relative time] 1.0 {INR} [facility] Laboratory - Chemistry and C hemistry - challengeon 10-15-2022 CO2 [Moles/Vol] 24.0 mmol/L 21.0-32.0 [facility] Work Phone: Urea nitrogen/Creatinine [Mass ratio] 17.7 mg/mg 10-20 [facility] Work Phone: Laboratory - CoagulationOrde red By: David Felipe on 10-15-2022 aPTT Coag (Bld) [Time] 28.9 s 24.1-36.2 [facility] PT Coag (PPP) [Time] 13.2 s 11.7-14.9 [facility] Laboratory - Hematology and Cell countson 10-15-2022 Erythrocyte distribution width (RBC) [Entitic vol] 52.1 fL 35.1-43.9 [facility] Work Phone: Erythrocyte distribution width (RBC) [Ratio] 18.8 % 11.6-14.6 [facility] Work Phone: Immature granulocytes/100 WBC (Bld) 0.300 % 0.0-0.9 [facility] Work Phone: Comment on above: IG% - Immature Granu locytes (promyelocytes, myelocytes and metamyelocytes) > 1% indicates that a LEFT SHIFT is Present. MCH (RBC) [Entitic mass] 22.0 pg 27.0-32.0 [facility] Work Phone: Nucleated RBC/100 WBC (Bld) [Ratio] 0 % 0-5 [facility] Work Phone: MCHC Auto (RBC) [Mass/Vol]on 10-15-2022 MCHC (RBC) [Mass/Vol] 28.5 g/dL 32-36 [facility] Work Phone: No Panel Informationon 10-15 Estimated Creatinine Clearance Calc 59.89 ml/min [facility] Work Phone: Estimated GFR (MDRD) Amer 81 mL/min >60 [facility] Work Phone: Comment on above: GFR Calc Estimated GFR (MDRD) Non-Af Amer 67 mL/min >60 [facility] Work Phone: Comment on above: Non- GFR Calc Platelets bldon 10-15-2022 Platelets (Bld) [#/Vol] 301 10*3/uL 150-450 [facility] Work Phone: Serum or plasma C reactive p rotein measurement (mass/volume)Ordered By: David Felipe on 10-15-2022 CRP [Mass/Vol] 18.00 mg/L 0.0-3.0 [facility] Comment on above: C-Reactive Protein ( CRP) provides useful information for thediagnosis, therapy and monitoring of inflammatory processesand associated diseases. For the evaluation of Relative Riskfor Cardiovascular Disease, a High Sensitivity CRP (HSCRP)should be ordered. Serum or plasma calcium merissa urement (mass/volume)on 10-15-2022 Calcium [Mass/Vol] 8.6 mg/dL 8.5-10.1 [facility] Work Phone: Serum or plasma creatinine m easurement (mass/volume)on 10-15-2022 Creatinine [Mass/Vol] 0.90 mg/dL 0.55-1.02 [facility] Work Phone: Comment on above: The validity of the calculated GFR & GFRAA in patients over 70 years has not been determined. Clinical correlation is essential. Serum or plasma urea nitroge n measurement (mass/volume)on 10-15-2022 Urea nitrogen [Mass/Vol] 16 mg/dL 7-18 [facility] Work Phone: Thin prep Papanicolaou smear with manual screeningon 10-15-2022 Thin prep Papanicolaou smear with manual screening 6 - [facility] Work Phone: Absolute lymphocyte countOrd ered By: Dr. De La Cruz on 09-10-2022 Lymphocytes Auto (Unsp spec) [#/Vol] 1.98 10*3/uL 0.83-4.51 [facility] Basophil percentageOrdered B y: Dr. De La Cruz on 09-10-2022 Basophils/100 WBC (Bld) 1.0 % 0-1 [facility] Eosinophils/100 WBC (Bld) 2.8 % 0-5 [facility] Neutrophils (Bld) [#/Vol] 3.7 10*3/uL 2.0-7.7 [facility] Neutrophils/100 WBC (Bld) 54.6 % 47-70 [facility] WBC (Bld) [#/Vol] 6.8 10*3/uL 4.4-11.0 [facility] Chloride [Moles/Vol] 107 mmol/L 98-107 [facility] Glucose [Mass/Vol] 98 mg/dL 74-106 [facility] Potassium [Moles/Vol] 4.1 mmol/L 3.5-5.1 [facility] Sodium [Moles/Vol] 140 mmol/L 136-145 [facility] Blood erythrocytes count (nu mber/volume)Ordered By: Dr. De La Cruz on 09-10-2022 RBC (Bld) [#/Vol] 4.20 10*6/uL 4.2-5.4 [facility] Blood hemoglobin measurement (mass/volume)Ordered By: Dr. De La Cruz on 09-10-2022 Hemoglobin (Bld) [Mass/Vol] 9.3 g/dL 12.0-15.0 [facility] Blood lymphocytes/100 leukoc ytesOrdered By: Dr. De La Cruz on 09-10-2022 Lymphocytes/100 WBC (Bld) 29.0 % 19-41 [facility] Blood monocytes/100 leukocyt esOrdered By: Dr. De La Cruz on 09-10-2022 Monocytes/100 WBC (Bld) 9.8 % 0-10 [facility] Blood platelet mean volumeOr dered By: Dr. De La Cruz on 09-10-2022 Platelet mean volume (Bld) [Entitic vol] 9.4 fL 6.2-12.0 [facility] Determination of erythrocyte mean corpuscular volume (MCV)Ordered By: Dr. De La Cruz on 09-10-2022 MCV (RBC) [Entitic vol] 76.0 fL 81-99 [facility] Hematocrit Auto (Bld) [Volum e fraction]Ordered By: Dr. De La Cruz on 09-10-2022 Hematocrit (Bld) [Volume fraction] 31.9 % 37-47 [facility] Influenza virus A and B and SARS-CoV-2 (COVID-19) Ag panel - Upper respiratory specimOrdered By: Dr. De La Cruz on 09-10-2022 SARS-CoV-2 (COVID-19) RNA NICHOLE+probe Ql (Resp) [facility] Laboratory - Chemistry and C hemistry - challengeOrdered By: Dr. De La Cruz on 12-11-2022 CO2 [Moles/Vol] 29.0 mmol/L 21.0-32.0 [facility] Urea nitrogen/Creatinine [Mass ratio] 22.6 mg/mg 10-20 [facility] - Hematology and Cell countsOrdered By: Dr. De La Cruz on 09-10-2022 Anisocytosis Ql (Bld) 1+ [facility] Erythrocyte distribution width (RBC) [Entitic vol] 57.7 fL 35.1-43.9 [facility] Erythrocyte distribution width (RBC) [Ratio] 21.2 % 11.6-14.6 [facility] Immature granulocytes/100 WBC (Bld) 2.800 % 0.0-0.9 [facility] Comment on above: IG% - Immature Granu locytes (promyelocytes, myelocytes and metamyelocytes) > 1% indicates that a LEFT SHIFT is Present. MCH (RBC) [Entitic mass] 22.1 pg 27.0-32.0 [facility] Nucleated RBC/100 WBC (Bld) [Ratio] 0 % 0-5 [facility] MCHC Auto (RBC) [Mass/Vol]Or dered By: Dr. De La Cruz on 09-10-2022 MCHC (RBC) [Mass/Vol] 29.2 g/dL 32-36 [facility] No Panel InformationOrdered By: Dr. De La Cruz on 09-10-2022 Estimated Creatinine Clearance Calc 81.67 ml/min [facility] Estimated GFR (MDRD) Amer 115 mL/min >60 [facility] Comment on above: GFR Calc Estimated GFR (MDRD) Non-Af Amer 95 mL/min >60 [facility] Comment on above: Non- GFR Calc Troponin I High Sensitivity 7 pg/mL 3.0-54.0 [facility] Comment on above: Please Note: New Jen t Units and Gender Specific Reference Ranges. For more information see Policy Stat Procedure Liberal High Sensitivity Troponin (TNIH) and attachments. Platelets bldOrdered By: Dr. De La Cruz on 09-10-2022 Platelets (Bld) [#/Vol] 494 10*3/uL 150-450 [facility] Serum or plasma calcium merissa urement (mass/volume)Ordered By: Dr. De La Cruz on 09-10-2022 Calcium [Mass/Vol] 9.1 mg/dL 8.5-10.1 [facility] Serum or plasma creatinine m easurement (mass/volume)Ordered By: Dr. De La Cruz on 09-10-2022 Creatinine [Mass/Vol] 0.66 mg/dL 0.55-1.02 [facility] Comment on above: The validity of the calculated GFR & GFRAA in patients over 70 years has not been determined. Clinical correlation is essential. Serum or plasma urea nitroge n measurement (mass/volume)Ordered By: Dr. De La Cruz on 09-10-2022 Urea nitrogen [Mass/Vol] 15 mg/dL 7-18 [facility] Thin prep Papanicolaou smear with manual screeningOrdered By: Dr. De La Cruz on 09-10-2022 Thin prep Papanicolaou smear with manual screening 1+ [facility] Thin prep Papanicolaou smear with manual screening 4 5-15 [facility] Laboratory - Microbiology an d Antimicrobial susceptibilityOrdered By: Dr. Marcelo on 09-06-2022 Bacteria identified Cx Nom (Bld) No growth in 5 days. [facility] Absolute lymphocyte countOrd ered By: Dr. Cantu on 09-05-2022 Lymphocytes Auto (Unsp spec) [#/Vol] 1.62 10*3/uL 0.83-4.51 [facility] Basophil percentageOrdered B y: Dr. Cantu on 09-05-2022 Basophils/100 WBC (Bld) 1.1 % 0-1 [facility] Chloride [Moles/Vol] 102 mmol/L 98-107 [facility] Eosinophils/100 WBC (Bld) 6.0 % 0-5 [facility] Glucose [Mass/Vol] 111 mg/dL 74-106 [facility] Comment on above: Fasting Glucose resu lt from 100 to 125 mg/dL suggests IMPAIRED HOMEOSTASIS per A.D.A. criteria. Neutrophils (Bld) [#/Vol] 3.9 10*3/uL 2.0-7.7 [facility] Neutrophils/100 WBC (Bld) 53.4 % 47-70 [facility] Potassium [Moles/Vol] 3.9 mmol/L 3.5-5.1 [facility] Sodium [Moles/Vol] 135 mmol/L 136-145 [facility] WBC (Bld) [#/Vol] 7.4 10*3/uL 4.4-11.0 [facility] Blood erythrocytes count (nu mber/volume)Ordered By: Dr. Cantu on 09-05-2022 RBC (Bld) [#/Vol] 4.28 10*6/uL 4.2-5.4 [facility] Blood hemoglobin measurement (mass/volume)Ordered By: Dr. Cantu on 09-05-2022 Hemoglobin (Bld) [Mass/Vol] 9.8 g/dL 12.0-15.0 [facility] Blood lymphocytes/100 leukoc ytesOrdered By: Dr. Cantu on 09-05-2022 Lymphocytes/100 WBC (Bld) 22.0 % 19-41 [facility] Blood manual differential co mment interpretation (narrative result)Ordered By: Dr. Cantu on 09-05-2022 Manual differential comment Aurelio (Bld) [Interp] SCANNED [facility] Blood monocytes/100 leukocyt esOrdered By: Dr. Cantu on 09-05-2022 Monocytes/100 WBC (Bld) 13.6 % 0-10 [facility] Blood platelet mean volumeOr dered By: Dr. Cantu on 09-05-2022 Platelet mean volume (Bld) [Entitic vol] 10.3 fL 6.2-12.0 [facility] Determination of erythrocyte mean corpuscular volume (MCV)Ordered By: Dr. Cantu on 09-05-2022 MCV (RBC) [Entitic vol] 76.4 fL 81-99 [facility] Glucose Glucometer (BldC) [M ass/Vol]Ordered By: Dr. [place]ima on 09-05-2022 Glucose [Mass/Vol] 107 mg/dL 74-106 [facility] Comment on above: MANAGEMENT OF PATIEN T CARE PER NURSING PROTOCOL Hematocrit Auto (Bld) [Volum e fraction]Ordered By: Dr. Cantu on 09-05-2022 Hematocrit (Bld) [Volume fraction] 32.7 % 37-47 [facility] Laboratory - Chemistry and C hemistry - challengeOrdered By: Dr. Cantu on 09-05-2022 CO2 [Moles/Vol] 28.0 mmol/L 21.0-32.0 [facility] Urea nitrogen/Creatinine [Mass ratio] 13.0 mg/mg 10-20 [facility] - Hematology and Cell countsOrdered By: Dr. Cantu on 09-05-2022 Anisocytosis Ql (Bld) 1+ [facility] Erythrocyte distribution width (RBC) [Entitic vol] 57.6 fL 35.1-43.9 [facility] Erythrocyte distribution width (RBC) [Ratio] 21.2 % 11.6-14.6 [facility] Immature granulocytes/100 WBC (Bld) 3.900 % 0.0-0.9 [facility] Comment on above: IG% - Immature Granu locytes (promyelocytes, myelocytes and metamyelocytes) > 1% indicates that a LEFT SHIFT is Present. MCH (RBC) [Entitic mass] 22.9 pg 27.0-32.0 [facility] Nucleated RBC/100 WBC (Bld) [Ratio] 0 % 0-5 [facility] MCHC Auto (RBC) [Mass/Vol]Or dered By: Dr. Cantu on 09-05-2022 MCHC (RBC) [Mass/Vol] 30.0 g/dL 32-36 [facility] No Panel InformationOrdered By: Dr. Cantu on 09-05-2022 Estimated Creatinine Clearance Calc 70.01 ml/min [facility] Estimated GFR (MDRD) Amer 97 mL/min >60 [facility] Comment on above: GFR Calc Estimated GFR (MDRD) Non-Af Amer 80 mL/min >60 [facility] Comment on above: Non- GFR Calc Platelets bldOrdered By: Dr. Cantu on 09-05-2022 Platelets (Bld) [#/Vol] 266 10*3/uL 150-450 [facility] Serum or plasma calcium merissa urement (mass/volume)Ordered By: Dr. Cantu on 09-05-2022 Calcium [Mass/Vol] 9.0 mg/dL 8.5-10.1 [facility] Serum or plasma creatinine m easurement (mass/volume)Ordered By: Dr. Cantu on 09-05-2022 Creatinine [Mass/Vol] 0.77 mg/dL 0.55-1.02 [facility] Comment on above: The validity of the calculated GFR & GFRAA in patients over 70 years has not been determined. Clinical correlation is essential. Serum or plasma urea nitroge n measurement (mass/volume)Ordered By: Dr. Cantu on 09-05-2022 Urea nitrogen [Mass/Vol] 10 mg/dL 7-18 [facility] Thin prep Papanicolaou smear with manual screeningOrdered By: Dr. Cantu on 09-05-2022 Thin prep Papanicolaou smear with manual screening 1+ [facility] Thin prep Papanicolaou smear with manual screening 5 5-15 [facility] Bacteria identified Cx Nom ( Wound)Ordered By: Dr. Hurtado on 09-04-2022 Wound Culture Streptococcus group A [facility] Wound Culture Staphylococcus aureus [facility] Blood platelet adequacy dete ction by light microscopyOrdered By: Dr. Cantu on 09-03-2022 Platelets LM Ql (Bld) ADEQUATE ADEQ [facility] Culture, urineOrdered By: Dr Nay Hurtado on 09-03-2022 Bacteria identified Cx Nom (U) Culture exhibits no growth. [facility] Bacteria identified Respirat ory culture Nom (Unsp spec)Ordered By: Dr. Hurtado on 09-02-2022 Respiratory Culture Staphylococcus aureus [facility] Laboratory - CoagulationOrde red By: Dr. Hurtado on 09-02-2022 aPTT Coag (Bld) [Time] 53.4 s 24.1-36.2 [facility] Basophil percentageOrdered B y: Dr. Hurtado on 09-01-2022 Bilirubin [Mass/Vol] 0.50 mg/dL 0.20-1.00 [facility] Comment on above: For patients on eltr ombopag therapy, use of Dimension Liberal TBIL is not recommended. Protein [Mass/Vol] 6.3 g/dL 6.4-8.2 [facility] Gram stain for investigation of transfusion reactionOrdered By: Dr. Hurtado on 09-01-2022 Microscopic observation Gram stain Nom (Unsp spec) [facility] Laboratory - Chemistry and C hemistry - challengeOrdered By: Dr. Hurtado on 09-01-2022 ALP [Catalytic activity/Vol] 94 U/L 45-117 [facility] ALT [Catalytic activity/Vol] 34 U/L 13-56 [facility] Globulin (S) [Mass/Vol] 3.8 g/dL 2.2-4.2 [facility] Serum or plasma albumin merissa urement (mass/volume)Ordered By: Dr. Hurtado on 09-01-2022 Albumin [Mass/Vol] 2.5 g/dL 3.2-5.0 [facility] Serum or plasma albumin/glob ulin mass ratioOrdered By: Dr. Hurtado on 09-01-2022 Albumin/Globulin [Mass ratio] 0.7 {ratio} 0.9-2.4 [facility] Thin prep Papanicolaou smear with manual screeningOrdered By: Dr. Hurtado on 09-01-2022 Thin prep Papanicolaou smear with manual screening 24 U/L 15-37 [facility] Whole blood hemoglobin A1c/t otal hemoglobin ratio (mass fraction)Ordered By: Dr. Hurtado on 09-01-2022 HbA1c (Bld) [Mass fraction] 5.8 % 3.8-5.6 [facility] Comment on above: Normal < 5.7 % Predi abetic 5.7 - 6.4 % Diabetic >or= 6.5 % Please note range changes. Absolute lymphocyte counton 08-31-2022 Lymphocytes Auto (Unsp spec) [#/Vol] 1.26 10*3/uL 0.83-4.51 [facility] Work Phone: Assessment of wrist artery p atency prior to arterial punctureOrdered By: Dr. Hurtado on 08-31-2022 Arterial patency Wrist artery --pre arterial puncture Positive [facility] Assessment of wrist artery p atency prior to arterial punctureon 08-31-2022 Arterial patency Wrist artery --pre arterial puncture Positive [facility] Work Phone: Base excessOrdered By: Dr. Tracey paulino on 08-31-2022 Base excess Calc (BldV) [Moles/Vol] 3 mmol/L -2-2 [facility] Base excesson 08-31-2022 Base excess Calc (BldV) [Moles/Vol] 3 mmol/L -2-2 [facility] Work Phone: Basophil percentageOrdered B y: Dr. Hurtado on 08-31-2022 Basophil percentage 28.1 mmol/L 22- [facility] Basophils/100 WBC (Bld) 98 % 95-99 [facility] Basophil percentageon 2021 Basophil percentage 29.9 mmol/L - [facility] Work Phone: Basophils/100 WBC (Bld) 99 % 95-99 [facility] Work Phone: Basophils/100 WBC (Bld) 0.4 % 0-1 [facility] Work Phone: Chloride [Moles/Vol] 101 mmol/L 98-107 [facility] Work Phone: Eosinophils/100 WBC (Bld) 0.3 % 0-5 [facility] Work Phone: Glucose [Mass/Vol] 88 mg/dL 74-106 [facility] Work Phone: Neutrophils (Bld) [#/Vol] 14.8 10*3/uL 2.0-7.7 [facility] Work Phone: Neutrophils/100 WBC (Bld) 84.7 % 47-70 [facility] Work Phone: Potassium [Moles/Vol] 3.7 mmol/L 3.5-5.1 [facility] Work Phone: Sodium [Moles/Vol] 139 mmol/L 136-145 [facility] Work Phone: WBC (Bld) [#/Vol] 17.5 10*3/uL 4.4-11.0 [facility] Work Phone: Basophil percentageOrdered B y: Dr. Marcelo on 08-31-2022 Lactate [Moles/Vol] 1.8 mmol/L 0.4-2.0 [facility] Triglyceride [Mass/Vol] 133 mg/dL <199 [facility] Comment on above: The drugs N-Acetylcy steine and Metamizole may falsely depress this assay.Serum Triglycerides Reference Interval Normal <150 mg/dL Borderline high 150 - 199 mg/dL High 200 - 499 mg/dL Very High > or = 500 mg/dL Blood erythrocytes count (nu mber/volume)on 08-31-2022 RBC (Bld) [#/Vol] 5.14 10*6/uL 4.2-5.4 [facility] Work Phone: Blood hemoglobin measurement (mass/volume)on 08-31-2022 Hemoglobin (Bld) [Mass/Vol] 11.4 g/dL 12.0-15.0 [facility] Work Phone: Blood lymphocytes/100 leukoc yteson 08-31-2022 Lymphocytes/100 WBC (Bld) 7.2 % 19-41 [facility] Work Phone: Blood monocytes/100 leukocyt eson 08-31-2022 Monocytes/100 WBC (Bld) 6.8 % 0-10 [facility] Work Phone: Blood platelet mean volumeon 08-31-2022 Platelet mean volume (Bld) [Entitic vol] 10.0 fL 6.2-12.0 [facility] Work Phone: CO2 (BldA) [Partial pressure ]Ordered By: Dr. Hurtado on 08-31-2022 CO2 (Bld) [Partial pressure] 48.5 mm[Hg] 35-45 [facility] CO2 (BldA) [Partial pressure ]on 08-31-2022 CO2 (Bld) [Partial pressure] 62.5 mm[Hg] 35-45 [facility] Work Phone: Determination of erythrocyte mean corpuscular volume (MCV)on 08-31-2022 MCV (RBC) [Entitic vol] 75.9 fL 81-99 [facility] Work Phone: Hematocrit Auto (Bld) [Volum e fraction]on 08-31-2022 Hematocrit (Bld) [Volume fraction] 39.0 % 37-47 [facility] Work Phone: INR in Blood by Coagulation assayOrdered By: Dr. Marcelo on 08-31-2022 INR Coag (Bld) [Relative time] 1.0 {INR} [facility] Laboratory - Chemistry and C hemistry - challengeOrdered By: Dr. Marcelo on 08-31-2022 CK [Catalytic activity/Vol] 77 U/L 26-192 [facility] Laboratory - Chemistry and C hemistry - challengeon 08-31-2022 CO2 [Moles/Vol] 30.0 mmol/L 21.0-32.0 [facility] Work Phone: Urea nitrogen/Creatinine [Mass ratio] 23.1 mg/mg 10-20 [facility] Work Phone: Laboratory - Chemistry and C hemistry - challengeOrdered By: Dr. Hurtado on 08-31-2022 Natriuretic peptide B (Bld) [Mass/Vol] 100.2 pg/mL 0-100 [facility] Laboratory - Coagulationon 1 11-01-2021 aPTT Coag (Bld) [Time] 24.3 s 24.1-36.2 [facility] Work Phone: Laboratory - CoagulationOrde red By: Dr. Marcelo on 08-31-2022 PT Coag (PPP) [Time] 12.8 s 11.7-14.9 [facility] Laboratory - Hematology and Cell countson 08-31-2022 Anisocytosis Ql (Bld) 1+ [facility] Work Phone: Erythrocyte distribution width (RBC) [Entitic vol] 57.9 fL 35.1-43.9 [facility] Work Phone: Erythrocyte distribution width (RBC) [Ratio] 22.0 % 11.6-14.6 [facility] Work Phone: Immature granulocytes/100 WBC (Bld) 0.600 % 0.0-0.9 [facility] Work Phone: Comment on above: IG% - Immature Granu locytes (promyelocytes, myelocytes and metamyelocytes) > 1% indicates that a LEFT SHIFT is Present. MCH (RBC) [Entitic mass] 22.2 pg 27.0-32.0 [facility] Work Phone: Nucleated RBC/100 WBC (Bld) [Ratio] 0 % 0-5 [facility] Work Phone: MCHC Auto (RBC) [Mass/Vol]on 08-31-2022 MCHC (RBC) [Mass/Vol] 29.2 g/dL 32-36 [facility] Work Phone: No Panel InformationOrdered By: Dr. Hurtado on 08-31-2022 Methicillin-Resist S.aureus DNA PCR Negative Negative [facility] Bedside Blood Gas PEEP 5 [facility] Blood Gas Oxygen Percent 50 [facility] Blood Gas Respiration Rate 14 [facility] Blood Gas Sample Site L Radial [facility] Blood Gas Specimen Type ART [facility] Blood Gas Tidal Volume 450 [facility] Blood Gas Total CO2 30 mmol/L [facility] Blood Gas Vent Mode AC [facility] Oxygen Delivery Device Adult Vent [facility] No Panel Informationon 08-31 Bedside Blood Gas PEEP 5 [facility] Work Phone: Blood Gas Oxygen Percent 100 [facility] Work Phone: Blood Gas Respiration Rate 14 [facility] Work Phone: Blood Gas Sample Site R Radial [facility] Work Phone: Blood Gas Specimen Type ART [facility] Work Phone: Blood Gas Tidal Volume 450 [facility] Work Phone: Blood Gas Total CO2 32 mmol/L [facility] Work Phone: Blood Gas Vent Mode AC [facility] Work Phone: Oxygen Delivery Device Adult Vent [facility] Work Phone: Estimated Creatinine Clearance Calc 56.74 ml/min [facility] Work Phone: Estimated GFR (MDRD) Amer 76 mL/min >60 [facility] Work Phone: Comment on above: GFR Calc Estimated GFR (MDRD) Non-Af Amer 63 mL/min >60 [facility] Work Phone: Comment on above: Non- GFR Calc No Panel InformationOrdered By: Dr. Marcelo on 08-31-2022 D-Dimer Quantitative (PE/DVT) 0.74 FEU/ug/m 0.27-0.49 [facility] Comment on above: D-Dimer ELEVATED (>0 .49): Additional studies and clinicalassessments are indicated to conclude diagnosis of:Deep Vein Thrombosis (DVT) or Pulmonary Embolism (PE) Troponin I High Sensitivity 13 pg/mL 3.0-54.0 [facility] Comment on above: Please Note: New Jen t Units and Gender Specific Reference Ranges. For more information see Policy Stat Procedure Liberal High Sensitivity Troponin (TNIH) and attachments. Oxygen (BldA) [Partial press ure]Ordered By: Dr. Hurtado on 08-31-2022 Oxygen (Bld) [Partial pressure] 103 mmHG 75-100 [facility] Oxygen (BldA) [Partial press ure]on 08-31-2022 Oxygen (Bld) [Partial pressure] 149 mmHG 75-100 [facility] Work Phone: Platelets bldon 08-31-2022 Platelets (Bld) [#/Vol] 328 10*3/uL 150-450 [facility] Work Phone: Serum or plasma calcium merissa urement (mass/volume)on 08-31-2022 Calcium [Mass/Vol] 9.1 mg/dL 8.5-10.1 [facility] Work Phone: Serum or plasma creatinine m easurement (mass/volume)on 08-31-2022 Creatinine [Mass/Vol] 0.95 mg/dL 0.55-1.02 [facility] Work Phone: Comment on above: The validity of the calculated GFR & GFRAA in patients over 70 years has not been determined. Clinical correlation is essential. Serum or plasma urea nitroge n measurement (mass/volume)on 08-31-2022 Urea nitrogen [Mass/Vol] 22 mg/dL 7-18 [facility] Work Phone: Staphylococcus aureus DNA de tection by probe and target amplification methodOrdered By: Dr. Hurtado on 08-31-2022 S. aureus DNA NICHOLE+probe Ql (Unsp spec) Positive Negative [facility] Thin prep Papanicolaou smear with manual screeningon 08-31-2022 Thin prep Papanicolaou smear with manual screening 8 5-15 [facility] Work Phone: pH measurementOrdered By: Dr Nay Hurtaod on 08-31-2022 pH (Unsp spec) 7.37 [pH] 7.35-7.45 [facility] pH measurementon 08-31-2022 pH (Unsp spec) 7.29 [pH] 7.35-7.45 [facility] Work Phone: BPPCRon 08-15-2022 B. pertussis PCR See Comments [facility] ([place]) Comment on above: Result Comment: Comp lete reference lab report scanned to EMR. Performed By: #### B PPCR ####[place] [address] CRPon 08-08-2022 C-Reactive Protein 1.2 mg/dL High 0.0-0.9 [facility] ([place]) Comment on above: Performed By: #### C RP, CBC, ADIFF, GFR, CMP, ANEU, PBNP #### [place] [id number] [place], [place] [address] XR CHEST 2 VIEWSon 2 XR CHEST 2 VIEWS ORIGINAL EXAMINATION: TWO XRAY VIEWS OF THE CHEST 07/25/2022 1:08 pm COMPARISON: Chest x-ray on 09/07/2021 HISTORY: ORDERING SYSTEM PROVIDED HISTORY: Reason for Exam: acute productive cough, worsening FINDINGS: The heart size is normal. There is no acute lung infiltrate or edema. No pneumothorax or pleural fluid is present. Neurostimulator lead is positioned in the thoracic spinal canal. There are mild multilevel degenerative changes in the thoracic spine. There is advanced left glenohumeral arthritis. No acute skeletal abnormality is detected. IMPRESSION: No acute radiographic abnormality of the chest. Interpreted by: Asher Sanders MD Preliminary Report By: Asher Sanders MD Electronically signed By Asher Sanders MD Dictated Date: 07/28/2022 7:34:09 AM Prelim Date: 07/28/2022 7:35:40 AM Sign Date: 07/28/2022 7:35:40 AM Ordering Provider: OJ MADDOX [facility] ([place]) .GFRon 07-25-2022 GFR 88 ml/min/1.73sqm Normal [facility] ([place]) Comment on above: Result Comment: GFR Population mean for , Non- Americans Ages 20-29 = 116 mL/min/1.73 sq.m. Ages 30-39 = 107 mL/min/1.73 sq.m. Ages 40-49 = 99 mL/min/1.73 sq.m. Ages 50-59 = 93 mL/min/1.73 sq.m. Ages 60-69 = 85 mL/min/1.73 sq.m. Ages 70+ = 75 mL/min/1.73 sq.m. Chronic Kidney Disease: Less than 60 mL/min/1.73 square meters End Stage Renal Disease: Less than 15 mL/min/1.73 square meters Performed By: #### C MP, GFR ####[address] [place], [place] [address] GFR Non- 73 ml/min/1.73sqm Normal [facility] ([place]) Comment on above: Result Comment: GFR Population mean for , Non- Americans Ages 20-29 = 116 mL/min/1.73 sq.m. Ages 30-39 = 107 mL/min/1.73 sq.m. Ages 40-49 = 99 mL/min/1.73 sq.m. Ages 50-59 = 93 mL/min/1.73 sq.m. Ages 60-69 = 85 mL/min/1.73 sq.m. Ages 70+ = 75 mL/min/1.73 sq.m. Chronic Kidney Disease: Less than 60 mL/min/1.73 square meters End Stage Renal Disease: Less than 15 mL/min/1.73 square meters Performed By: #### C MP, GFR ####[address] [place], [place] [address] .Manual Diffon 07-25-2022 Atypical Lymphs 4.0 % Normal 0.0-5.0 [facility] ([place]) Comment on above: Performed By: #### C MP, GFR ####[address] [place], [place] [address] Basophil %, Manual 2.0 % Normal 0.0-2.5 [facility] ([place]) Comment on above: Performed By: #### C MP, GFR ####[address] [place], [place] [address] Basophil, Abs Manual 0.1 10 3/mcL Normal 0.0-0.2 [facility] ([place]) Comment on above: Performed By: #### C MP, GFR ####[address] [place], [place] [address] Eosinophil %, Manual 6.0 % Normal 0.0-7.0 [facility] ([place]) Comment on above: Performed By: #### C MP, GFR ####[address] [place], [place] [address] Eosinophil, Abs Manual 0.4 10 3/mcL Normal 0.0-0.4 [facility] ([place]) Comment on above: Performed By: #### C MP, GFR ####[address] [place], [place] [address] Lymphocyte %, Manual 14.0 % Normal 10.0-50.0 [facility] ([place]) Comment on above: Performed By: #### C MP, GFR ####[address] [place], [place] [address] Lymphocyte, Abs Manual 0.9 10 3/mcL Normal 0.8-3.9 [facility] ([place]) Comment on above: Performed By: #### C MP, GFR ####[address] [place], [place] [address] Monocyte %, Manual 4.0 % Normal 1.7-13.0 [facility] ([place]) Comment on above: Performed By: #### C MP, GFR ####[address] [place], [place] [address] Monocyte, Abs Manual 0.3 10 3/mcL Normal 0.2-1.0 [facility] ([place]) Comment on above: Performed By: #### C MP, GFR ####[address] [place], [place] [address] Neutrophil %, Manual 70.0 % Normal 37.0-80.0 [facility] ([place]) Comment on above: Performed By: #### C MP, GFR ####[address] [place], [place] [address] Neutrophil, Abs Manual 4.6 10 3/mcL Normal 2.9-6.2 [facility] ([place]) Comment on above: Performed By: #### C MP, GFR ####[address] [place], [place] [address] Nucleated RBC 0.0 /100 WBC Normal [facility] ([place]) Comment on above: Performed By: #### C MP, GFR ####[address] [place], [place] [address] .Morphon 07-25-2022 Anisocytosis Ql (Bld) 1+ Normal [facility] ([place]) Comment on above: Performed By: #### C MP, GFR ####[address] [place], [place] [address] Hypochrom 1+ Normal [facility] ([place]) Comment on above: Performed By: #### C MP, GFR ####[address] [place], [place] [address] Microcytosis 2+ Normal [facility] ([place]) Comment on above: Performed By: #### C MP, GFR ####[address] [place], [place] [address] Platelet Estimate Normal Normal [facility] ([place]) Comment on above: Performed By: #### C MP, GFR ####[address] [place], [place] [address] Polychrom 1+ Normal [facility] ([place]) Comment on above: Performed By: #### C MP, GFR ####[address] [place], [place] [address] Stomatocytes 2+ Normal [facility] ([place]) Comment on above: Performed By: #### C MP, GFR ####[address] [place], [place] [address] CBCon 07-25-2022 Erythrocyte distribution width (RBC) [Ratio] 19.3 % High 11.5-14.5 [facility] ([place]) Comment on above: Performed By: #### C MP, GFR ####[address] [place], [place] [address] Hematocrit (Bld) [Volume fraction] 30.8 % Low 37.0-47.0 [facility] ([place]) Comment on above: Performed By: #### C MP, GFR ####[address] [place], [place] [address] Hgb 9.7 G/dL Low 12.0-16.0 [facility] ([place]) Comment on above: Performed By: #### C MP, GFR ####[address] [place], [place] [address] MCH (RBC) [Entitic mass] 21.7 pg Low 27.0-31.2 [facility] ([place]) Comment on above: Performed By: #### C MP, GFR ####[address] [place], [place] [address] MCHC 31.7 G/dL Low 33.0-37.0 [facility] ([place]) Comment on above: Performed By: #### C MP, GFR ####[address] [place], [place] [address] MCV (RBC) [Entitic vol] 68.6 fL Low 80.0-94.0 [facility] ([place]) Comment on above: Performed By: #### C MP, GFR ####[address] [place], [place] [address] Platelet 331 10 3/mcL Normal 130-400 [facility] ([place]) Comment on above: Performed By: #### C MP, GFR ####[address] [place], [place] [address] Platelet mean volume (Bld) [Entitic vol] 7.9 fL Normal 7.4-10.4 [facility] ([place]) Comment on above: Performed By: #### C MP, GFR ####[address] [place], [place] [address] RBC 4.49 10 6/mcL Normal 4.20-5.40 [facility] ([place]) Comment on above: Performed By: #### C MP, GFR ####[address] [address] WBC 6.6 10 3/mcL Normal 4.6-10.8 [facility] ([place]) Comment on above: Performed By: #### C MP, GFR ####[address] [address] CMPon 07-25-2022 Albumin Level 3.4 G/dL Normal 3.4-4.8 [facility] ([place]) Comment on above: Performed By: #### C MP, GFR #### [address] [address] Albumin/Globulin [Mass ratio] 0.9 {ratio} Low 1.1-2.5 [facility] ([place]) Comment on above: Performed By: #### C MP, GFR #### [address] [address] ALP [Catalytic activity/Vol] 157 U/L High 40-135 [facility] ([place]) Comment on above: Performed By: #### C MP, GFR #### [address] [address] ALT [Catalytic activity/Vol] 18 U/L Normal 14-59 [facility] ([place]) Comment on above: Performed By: #### C MP, GFR #### [address] [address] AST [Catalytic activity/Vol] 14 U/L Normal 10-40 [facility] ([place]) Comment on above: Performed By: #### C MP, GFR #### [address] [address] Bili Total 0.4 mg/dL Normal 0.2-1.0 [facility] ([place]) Comment on above: Result Comment: Use of this assay is not recommended for patients undergoing treatment with eltrombopag due to the potential for falsely elevated results. Performed By: #### C MP, GFR #### [address] [address] BUN/Creatinine Ratio 24 ratio Normal 7-27 [facility] ([place]) Comment on above: Performed By: #### C MP, GFR #### [address] [address] Calcium [Mass/Vol] 8.7 mg/dL Normal 8.4-10.2 [facility] ([place]) Comment on above: Performed By: #### C MP, GFR #### [place] [id number] Chloride [Moles/Vol] 104 mmol/L Normal 98-107 [facility] ([place]) Comment on above: Performed By: #### C MP, GFR #### [place] [address] CO2 [Moles/Vol] 29 mmol/L Normal 23-31 [facility] ([place]) Comment on above: Performed By: #### C MP, GFR #### [place] [id number] Creatinine [Mass/Vol] 0.80 mg/dL Normal 0.55-1.02 [facility] ([place]) Comment on above: Performed By: #### C MP, GFR #### [address] [address] Electrolyte Balance 8.0 mEq/L Normal 4.0-15.0 [facility] ([place]) Comment on above: Performed By: #### C MP, GFR #### [address] [address] Globulin 3.8 G/dL Normal [facility] ([place]) Comment on above: Performed By: #### C MP, GFR #### [place] [id number] Glucose [Mass/Vol] 101 mg/dL Normal 80-115 [facility] ([place]) Comment on above: Performed By: #### C MP, GFR #### [place] [id number] Potassium [Moles/Vol] 4.2 mmol/L Normal 3.5-5.1 [facility] ([place]) Comment on above: Performed By: #### C MP, GFR #### [place] [place], [place] [address] Sodium [Moles/Vol] 141 mmol/L Normal 136-145 [facility] ([place]) Comment on above: Performed By: #### C MP, GFR #### [place] [address] [place], [place] [address] Total Protein 7.2 G/dL Normal 6.4-8.2 [facility] ([place]) Comment on above: Performed By: #### C MP, GFR #### [place] [address] [place], [place] [address] Urea nitrogen [Mass/Vol] 19 mg/dL High 7-18 [facility] ([place]) Comment on above: Performed By: #### C MP, GFR #### [place] [place], [place] [address] LABORATORYOrdered By: Tiffanie Lund on 07-25-2022 Albumin BCP dye [Mass/Vol] 3.4 G/dL Invalid Interpretation Code 3.4 - 4.8 G/dL AO ADM SS Albumin/Globulin [Mass ratio] 0.9 {ratio} Invalid Interpretation Code 1.1 - 2.5 ratio AO ADM SS ALP [Catalytic activity/Vol] 157 U/L Invalid Interpretation Code 40 - 135 U/L AO ADM SS ALT With P-5'-P [Catalytic activity/Vol] 18 U/L Invalid Interpretation Code 14 - 59 U/L AO ADM SS AST With P-5'-P [Catalytic activity/Vol] 14 U/L Invalid Interpretation Code 10 - 40 U/L AO ADM SS Bilirubin [Mass/Vol] 0.4 mg/dL Invalid Interpretation Code 0.2 - 1.0 mg/dL AO ADM SS Calcium [Mass/Vol] 8.7 mg/dL Invalid Interpretation Code 8.4 - 10.2 mg/dL AO ADM SS Chloride [Moles/Vol] 104 mmol/L Invalid Interpretation Code 98 - 107 mmol/L AO ADM SS CO2 [Moles/Vol] 29 mmol/L Invalid Interpretation Code 23 - 31 mmol/L AO ADM SS Creatinine [Mass/Vol] 0.80 mg/dL Invalid Interpretation Code 0.55 - 1.02 mg/dL AO ADM SS Electrolyte Balance 8.0 mEq/L Invalid Interpretation Code 4.0 - 15.0 mEq/L AO ADM SS Globulin 3.8 G/dL Invalid Interpretation Code AO ADM SS Glucose [Mass/Vol] 101 mg/dL Invalid Interpretation Code 80 - 115 mg/dL AO ADM SS Potassium [Moles/Vol] 4.2 mmol/L Invalid Interpretation Code 3.5 - 5.1 mmol/L AO ADM SS Protein [Mass/Vol] 7.2 G/dL Invalid Interpretation Code 6.4 - 8.2 G/dL AO ADM SS Sodium [Moles/Vol] 141 mmol/L Invalid Interpretation Code 136 - 145 mmol/L AO ADM SS Urea nitrogen [Mass/Vol] 19 mg/dL Invalid Interpretation Code 7 - 18 mg/dL AO ADM SS Urea nitrogen/Creatinine [Mass ratio] 24 ratio Invalid Interpretation Code 7 - 27 ratio AO ADM SS LABORATORYOrdered By: Ginger Noland on 07-25-2022 Anisocytosis Ql (Bld) 1+ *NA* (07/25/22 12:52 PM) Invalid Interpretation Code AO Workflow SS Basophil %, Manual 2.0 1 Invalid Interpretation Code 0.0 - 2.5 % AO Workflow SS Basophil, Abs Manual 0.1 103/mcL Invalid Interpretation Code 0.0 - 0.2 10^3/mcL AO Workflow SS Eosinophil %, Manual 6.0 1 Invalid Interpretation Code 0.0 - 7.0 % AO Workflow SS Eosinophils (Bld) [#/Vol] 0.4 103/mcL Invalid Interpretation Code 0.0 - 0.4 10^3/mcL AO Workflow SS Erythrocyte distribution width (RBC) [Ratio] 19.3 % Invalid Interpretation Code 11.5 - 14.5 % AO Workflow SS Hematocrit (Bld) [Volume fraction] 30.8 % Invalid Interpretation Code 37.0 - 47.0 % AO Workflow SS Hemoglobin (Bld) [Mass/Vol] 9.7 G/dL Invalid Interpretation Code 12.0 - 16.0 G/dL AO Workflow SS Hypochromia Ql (Bld) 1+ *NA* (07/25/22 12:52 PM) Invalid Interpretation Code AO Workflow SS Lymphocyte %, Manual 14.0 1 Invalid Interpretation Code 10.0 - 50.0 % AO Workflow SS Lymphocyte, Abs Manual 0.9 103/mcL Invalid Interpretation Code 0.8 - 3.9 10^3/mcL AO Workflow SS MCH (RBC) [Entitic mass] 21.7 pg Invalid Interpretation Code 27.0 - 31.2 pg AO Workflow SS MCHC 31.7 G/dL Invalid Interpretation Code 33.0 - 37.0 G/dL AO Workflow SS MCV (RBC) [Entitic vol] 68.6 fL Invalid Interpretation Code 80.0 - 94.0 fL AO Workflow SS Microcytes Ql (Bld) 2+ *NA* (07/25/22 12:52 PM) Invalid Interpretation Code AO Workflow SS Monocyte %, Manual 4.0 1 Invalid Interpretation Code 1.7 - 13.0 % AO Workflow SS Monocyte, Abs Manual 0.3 103/mcL Invalid Interpretation Code 0.2 - 1.0 10^3/mcL AO Workflow SS Neutrophil %, Manual 70.0 1 Invalid Interpretation Code 37.0 - 80.0 % AO Workflow SS Neutrophil, Abs Manual 4.6 103/mcL Invalid Interpretation Code 2.9 - 6.2 10^3/mcL AO Workflow SS Nucleated RBC 0.0 /100 WBC Invalid Interpretation Code AO Workflow SS Platelet Estimate Normal *NA* (07/25/22 12:52 PM) Invalid Interpretation Code AO Workflow SS Platelet mean volume (Bld) [Entitic vol] 7.9 fL Invalid Interpretation Code 7.4 - 10.4 fL AO Workflow SS Platelets (Bld) [#/Vol] 331 103/mcL Invalid Interpretation Code 130 - 400 10^3/mcL AO Workflow SS Polychromasia LM Ql (Bld) 1+ *NA* (07/25/22 12:52 PM) Invalid Interpretation Code AO Workflow SS RBC (Bld) [#/Vol] 4.49 106/mcL Invalid Interpretation Code 4.20 - 5.40 10^6/mcL AO Workflow SS Stomatocytes 2+ *NA* (07/25/22 12:52 PM) Invalid Interpretation Code AO Workflow SS Variant lymphocytes/100 WBC (Bld) 4.0 % Invalid Interpretation Code 0.0 - 5.0 % AO Workflow SS WBC (Bld) [#/Vol] 6.6 103/mcL Invalid Interpretation Code 4.6 - 10.8 10^3/mcL AO Workflow SS LABORATORYOrdered By: SYSTEM SYSTEM on 07-25-2022 GFR 88 ml/min/1.73sqm Invalid Interpretation Code AO Chemistry S GFR Non- 73 ml/min/1.73sqm Invalid Interpretation Code AO Chemistry S Comp Metabolic Panelon 02-01 Calcium [Mass/Vol] 8.9 mg/dL Normal 8.4-10.4 [facility] Comment on above: Performed By: #### S APCR #### [facility] [address] [place], [place] ALP [Catalytic activity/Vol] 80 U/L Normal 38-126 [facility] Comment on above: Performed By: #### S APCR #### [facility] [address] [place], [place] ALT [Catalytic activity/Vol] 25 U/L Normal 0-34 [facility] Comment on above: Result Comment: The ALT test is performed by an updated assay method. Please note that the reference intervals have been changed and are now sex specific. Performed By: #### S APCR #### [facility] [address], [place] Anion gap [Moles/Vol] 6 mmol/L Normal 3-13 [facility] Comment on above: Performed By: #### S APCR #### [facility] [address] [place], [place] AST [Catalytic activity/Vol] 31 U/L Normal 15-46 [facility] Comment on above: Performed By: #### S APCR #### [facility] [address], [place] Bilirubin [Mass/Vol] 0.4 mg/dL Normal 0.2-1.3 [facility] Comment on above: Performed By: #### S APCR #### [facility] [address], [place] CO2 [Moles/Vol] 30 mmol/L Normal 22-30 [facility] Comment on above: Performed By: #### S APCR #### [facility] [address], [place] Creatinine [Mass/Vol] 0.88 mg/dL Normal 0.52-1.25 [facility] Comment on above: Performed By: #### S APCR #### [facility] [address] [place] [address] GFR/1.73 sq M.predicted among blacks MDRD (S/P/Bld) [Vol rate/Area] 81.4 mL/min/{1.73_m2} Normal >60 [facility] Comment on above: Performed By: #### S APCR #### [facility] [address] [place] [address] GFR/1.73 sq M.predicted among non-blacks MDRD (S/P/Bld) [Vol rate/Area] 70.2 mL/min/{1.73_m2} Normal >60 [facility] Comment on above: Result Comment: KDIG O guidelines provide the following GFR categories: Stage GFR(ml/min/1.73 m2) Terms G1 >=90 Normal or high G2 60-89 Mildly decreased* G3a 45-59 Mildly to moderately decreased G3b 30-44 Moderately to severely decreased G4 15-29 Severely decreased G5 <15 Kidney failure *Relative to young adult level. In the absence of evidence of kidney damage, neither GFR category G1 nor G2 fulfill the criteria for CKD. The CKD-EPI equation is validated in individuals 18 years of age and older. Currently the best equation for estimating glomerular filtration rate (GFR) from serum creatinine in children is the Bedside Bolton equation. It is less accurate in patients with extremes of muscle mass, restriction of dietary protein, ingestion of creatine, extra-renal metabolism of creatinine, or treatment with medications that affect renal tubular creatinine secretion. Performed By: #### S APCR #### [facility] [employer] ([employer]) [facility] [address] [place] [address] Glucose [Mass/Vol] 147 mg/dL High 70-100 [facility] Comment on above: Performed By: #### S APCR #### [facility] [address] [id number] Protein [Mass/Vol] 7.1 g/dL Normal 6.3-8.2 [facility] Comment on above: Performed By: #### S APCR #### [facility] [address] [place] [address] Urea nitrogen [Mass/Vol] 13 mg/dL Normal 9-20 [facility] Comment on above: Performed By: #### S APCR #### [facility] [address], [place] Potassium [Moles/Vol] 4.3 mmol/L Normal 3.5-5.1 [facility] Comment on above: Performed By: #### S APCR #### [facility] [address], [place] Albumin [Mass/Vol] 3.4 g/dL Low 3.5-5.0 [facility] Comment on above: Performed By: #### S APCR #### [place] [address], [place] Chloride [Moles/Vol] 101 mmol/L Normal 98-107 [facility] Comment on above: Performed By: #### S APCR #### [place] [address] [place], [place] Sodium [Moles/Vol] 137 mmol/L Normal 135-145 [facility] Comment on above: Performed By: #### S APCR #### [place] [address] [place], [place] Hemogram w/ Autodiffon 02-01 Erythrocyte distribution width (RBC) [Ratio] 15.8 % High 11.5-14.5 [facility] Comment on above: Performed By: #### S APCR #### [place] [address], [place] Hematocrit (Bld) [Volume fraction] 26.9 % Low 35.0-47.0 [facility] Comment on above: Performed By: #### S APCR #### [place] [address], [place] Hemoglobin (Bld) [Mass/Vol] 8.8 g/dL Low 11.7-16.0 [facility] Comment on above: Performed By: #### S APCR #### [place] [address], [place] MCH (RBC) [Entitic mass] 26.6 pg Normal 26.0-34.0 [facility] Comment on above: Performed By: #### S APCR #### [facility] [address], [place] MCHC 32.6 % Normal 32.0-36.0 [facility] Comment on above: Performed By: #### S APCR #### [facility] [address], [place] MCV (RBC) [Entitic vol] 81.6 fL Normal 79.0-98.0 [facility] Comment on above: Performed By: #### S APCR #### [place] [address], [place] Platelet mean volume (Bld) [Entitic vol] 7.9 fL Normal 7.4-12.4 [facility] Comment on above: Result Comment: MPV is a calculated measurement using platelet volume ratio. Performed By: #### S APCR #### [place] [address], [place] Platelets (Bld) [#/Vol] 482 10*3/uL High 140-440 [facility] Comment on above: Performed By: #### S APCR #### [place] [address], [place] RBC (Bld) [#/Vol] 3.29 10*6/uL Low 3.80-5.20 [facility] Comment on above: Performed By: #### S APCR #### [place] [address], [place] WBC (Bld) [#/Vol] 12.1 10*3/uL High 3.6-10.7 [facility] Comment on above: Performed By: #### S APCR #### [place] [address], [place] Manual Diffon 02-01-2022 Abs Lymph Cnt 1.0 10*3/uL Low 1.1-4.5 [facility] Comment on above: Performed By: #### S APCR #### [place] [address], [place] Abs Monocyte Cnt 0.7 10*3/uL Normal 0.2-1.1 [facility] Comment on above: Performed By: #### S APCR #### [facility] [address], [place] Abs Neutrophile Cnt 10.2 10*3/uL High 2.2-8.2 [facility] Comment on above: Performed By: #### S APCR #### [facility] [address], [place] Anisocytosis Slight Normal [facility] Comment on above: Performed By: #### S APCR #### [facility] [address], [place] Bands 1 % Normal 0-3 [facility] Comment on above: Performed By: #### S APCR #### [place] [address], [place] Lymphocytes 8 % Low 20-40 [facility] Comment on above: Performed By: #### S APCR #### [facility] [address], [place] Metamyelocytes 2 % Abnormal <1 [facility] Comment on above: Performed By: #### S APCR #### [place] [address], [place] Monocytes 6 % Normal 2-10 [facility] Comment on above: Performed By: #### S APCR #### [place] [address], [place] Ovalocytes Slight Normal [facility] Comment on above: Performed By: #### S APCR #### [place] [address] [place], [place] Poikilocytosis Slight Normal [facility] Comment on above: Performed By: #### S APCR #### [facility] [address], [place] Polychromasia Slight Normal [facility] Comment on above: Performed By: #### S APCR #### [place] [address], [place] RBC Morphology ABNORMAL Normal [facility] Comment on above: Performed By: #### S APCR #### [place] [address], [place] Seg Neutrophils 83 % High 40-80 [facility] Comment on above: Performed By: #### S APCR #### [facility] [address], [place] Stomatocytes Slight Normal [facility] Comment on above: Performed By: #### S APCR #### [facility] [address], [place] Abs Baso Cnt 0.0 10*3/uL Normal 0.0-0.2 [facility] Comment on above: Performed By: #### S APCR #### [facility] [address], [place] Abs Eosin Cnt 0.0 10*3/uL Normal 0.0-0.5 [facility] Comment on above: Performed By: #### S APCR #### [facility] [address], [place] Basophils 0 % Normal 0-2 [facility] Comment on above: Performed By: #### S APCR #### [facility] [address], [place] Cells counted 100 Normal [facility] Comment on above: Performed By: #### S APCR #### [facility] [address], [place] Eosinophils 0 % Low 1-6 [facility] Comment on above: Performed By: #### S APCR #### [facility] [address], [place] Comp Metabolic Panelon 01-31 ALP [Catalytic activity/Vol] 90 U/L Normal 38-126 [facility] Comment on above: Performed By: #### H CRISTHIAN REDD MDIFF ####[facility] (deja mi) [id number] [facility] [place] [address] ALT [Catalytic activity/Vol] 26 U/L Normal 0-34 [facility] Comment on above: Result Comment: The ALT test is performed by an updated assay method. Please note that the reference intervals have been changed and are now sex specific. Performed By: #### H CRISTHIAN REDD MDIFF ####[facility] [place] [address] AST [Catalytic activity/Vol] 29 U/L Normal 15-46 [facility] Comment on above: Performed By: #### CRISTHIAN GIBSON MDIFF ####[facility] [place] [address] Calcium [Mass/Vol] 9.2 mg/dL Normal 8.4-10.4 [facility] Comment on above: Performed By: #### H CRISTHIAN REDD MDIFF ####[facility] [place] [address] Glucose [Mass/Vol] 116 mg/dL High 70-100 [facility] Comment on above: Performed By: #### H CRISTHIAN REDD MDIFF ####[place] [address] [place] [address] Protein [Mass/Vol] 7.0 g/dL Normal 6.3-8.2 [facility] Comment on above: Performed By: #### CRISTHIAN GIBSON MDIFF ####[place] [address] [place] [address] Urea nitrogen [Mass/Vol] 12 mg/dL Normal 9-20 [facility] Comment on above: Performed By: #### CRISTHIAN GIBSON MDIFF ####[place] [address] [place] [address] Anion gap [Moles/Vol] 5 mmol/L Normal 3-13 [facility] Comment on above: Performed By: #### CRISTHIAN GIBSON MDIFF ####[place] [address] [place] [address] Bilirubin [Mass/Vol] 0.3 mg/dL Normal 0.2-1.3 [facility] Comment on above: Performed By: #### H CRISTHIAN REDD MDIFF ####[facility] [place] [address] CO2 [Moles/Vol] 28 mmol/L Normal 22-30 [facility] Comment on above: Performed By: #### CRISTHIAN GIBSON MDIFF ####[place] [address] [place] [address] Creatinine [Mass/Vol] 0.82 mg/dL Normal 0.52-1.25 [facility] Comment on above: Performed By: #### H CRISTHIAN REDD MDIFF ####[facility] [place] [address] GFR/1.73 sq M.predicted among blacks MDRD (S/P/Bld) [Vol rate/Area] 88.6 mL/min/{1.73_m2} Normal >60 [facility] Comment on above: Performed By: #### H CRISTHIAN REDD MDIFF ####[place] [address] [place] [address] GFR/1.73 sq M.predicted among non-blacks MDRD (S/P/Bld) [Vol rate/Area] 76.5 mL/min/{1.73_m2} Normal >60 [facility] Comment on above: Result Comment: KDIG O guidelines provide the following GFR categories: Stage GFR(ml/min/1.73 m2) Terms G1 >=90 Normal or high G2 60-89 Mildly decreased* G3a 45-59 Mildly to moderately decreased G3b 30-44 Moderately to severely decreased G4 15-29 Severely decreased G5 <15 Kidney failure *Relative to young adult level. In the absence of evidence of kidney damage, neither GFR category G1 nor G2 fulfill the criteria for CKD. The CKD-EPI equation is validated in individuals 18 years of age and older. Currently the best equation for estimating glomerular filtration rate (GFR) from serum creatinine in children is the Bedside Bolton equation. It is less accurate in patients with extremes of muscle mass, restriction of dietary protein, ingestion of creatine, extra-renal metabolism of creatinine, or treatment with medications that affect renal tubular creatinine secretion. Performed By: #### H CRISTHIAN REDD MDIFF ####[facility] [place] [address] Albumin [Mass/Vol] 3.4 g/dL Low 3.5-5.0 [facility] Comment on above: Performed By: #### H CRISTHIAN REDD MDIFF ####[place] [address] [place] [address] Chloride [Moles/Vol] 106 mmol/L Normal 98-107 [facility] Comment on above: Performed By: #### CRISTHIAN GIBSON MDIFF ####[facility] [place] [address] Potassium [Moles/Vol] 4.0 mmol/L Normal 3.5-5.1 [facility] Comment on above: Performed By: #### CRISTHIAN GIBSON MDIFF ####[facility] [place] [address] Sodium [Moles/Vol] 140 mmol/L Normal 135-145 [facility] Comment on above: Performed By: #### CRISTHIAN GIBSON MDIFF ####[place] [address] [place] [address] Hemogram w/ Autodiffon 01-31 Erythrocyte distribution width (RBC) [Ratio] 15.6 % High 11.5-14.5 [facility] Comment on above: Performed By: #### CRISTHIAN GIBSON MDIFF ####[place] [address] [place] [address] Hematocrit (Bld) [Volume fraction] 28.2 % Low 35.0-47.0 [facility] Comment on above: Performed By: #### CRISTHIAN GIBSON MDIFF ####[place] [address] [place] [address] Hemoglobin (Bld) [Mass/Vol] 9.2 g/dL Low 11.7-16.0 [facility] Comment on above: Performed By: #### CRISTHIAN GIBSON MDIFF ####[place] [address] [place] [address] MCH (RBC) [Entitic mass] 26.9 pg Normal 26.0-34.0 [facility] Comment on above: Performed By: #### CRISTHIAN GIBSON MDIFF ####[facility] [address] MCHC 32.7 % Normal 32.0-36.0 [facility] Comment on above: Performed By: #### CRISTHIAN GIBSON MDIFF ####[place] [address] [place] [address] MCV (RBC) [Entitic vol] 82.2 fL Normal 79.0-98.0 [facility] Comment on above: Performed By: #### CRISTHIAN GIBSON MDIFF ####[facility] [place] [address] Platelet mean volume (Bld) [Entitic vol] 7.7 fL Normal 7.4-12.4 [facility] Comment on above: Result Comment: MPV is a calculated measurement using platelet volume ratio. Performed By: #### CRISTHIAN GIBSON MDIFF ####[facility] [place] [address] Platelets (Bld) [#/Vol] 466 10*3/uL High 140-440 [facility] Comment on above: Performed By: #### CRISTHIAN GIBSON MDIFF ####[address] [place] [address] RBC (Bld) [#/Vol] 3.43 10*6/uL Low 3.80-5.20 [facility] Comment on above: Performed By: #### CRISTHIAN GIBSON MDIFF ####[facility] [place] [address] WBC (Bld) [#/Vol] 10.8 10*3/uL High 3.6-10.7 [facility] Comment on above: Performed By: #### CRISTHIAN GIBSON MDIFF ####[facility] [place] [address] Manual Diffon 01-31-2022 Abs Eosin Cnt 0.3 10*3/uL Normal 0.0-0.5 [facility] Comment on above: Performed By: #### CRISTHIAN GIBSON MDIFF ####[facility] [place] [address] Abs Lymph Cnt 1.9 10*3/uL Normal 1.1-4.5 [facility] Comment on above: Performed By: #### CRISTHIAN GIBSON MDIFF ####[address] [place] [address] Abs Monocyte Cnt 0.6 10*3/uL Normal 0.2-1.1 [facility] Comment on above: Performed By: #### H CRISTHIAN REDD MDIFF ####[facility] [place] [address] Abs Neutrophile Cnt 7.6 10*3/uL Normal 2.2-8.2 [facility] Comment on above: Performed By: #### H CRISTHIAN REDD MDIFF ####[facility] [place] [address] Anisocytosis Slight Normal [facility] Comment on above: Performed By: #### H CRISTHIAN REDD MDIFF ####[facility] [place] [address] Eosinophils 3 % Normal 1-6 [facility] Comment on above: Performed By: #### H CRISTHIAN REDD MDIFF ####[place] [address] [place] [address] Hypochromia Slight Normal [facility] Comment on above: Performed By: #### H CRISTHIAN REDD MDIFF ####[facility] [place] [address] Lymphocytes 18 % Low 20-40 [facility] Comment on above: Performed By: #### H CRISTHIAN REDD MDIFF ####[facility] [place] [address] Metamyelocytes 2 % Abnormal <1 [facility] Comment on above: Performed By: #### H CRISTHIAN REDD MDIFF ####[facility] [place] [address] Monocytes 6 % Normal 2-10 [facility] Comment on above: Performed By: #### H CRISTHIAN REDD MDIFF ####[facility] [place] [address] Myelocytes 1 % Abnormal <1 [facility] Comment on above: Performed By: #### H CRISTHIAN REDD MDIFF ####[facility] [place] [address] Ovalocytes Slight Normal [facility] Comment on above: Performed By: #### H CRISTHIAN REDD MDIFF ####[facility] [address] [place] [address] Poikilocytosis Slight Normal [facility] Comment on above: Performed By: #### H CRISTHIAN REDD MDIFF ####[facility] [address] [place] [address] Polychromasia Slight Normal [facility] Comment on above: Performed By: #### H CRISTHIAN REDD MDIFF ####[facility] [address] [place] [address] RBC Morphology ABNORMAL Normal [facility] Comment on above: Performed By: #### H CRISTHIAN REDD MDIFF ####[facility] [address] [place] [address] Seg Neutrophils 70 % Normal 40-80 [facility] Comment on above: Performed By: #### H CRISTHIAN REDD MDIFF ####[facility] [id number] [place] [address] Stomatocytes Slight Normal [facility] Comment on above: Performed By: #### H CRISTHIAN REDD MDIFF ####[facility] [address] [place] [address] Abs Baso Cnt 0.0 10*3/uL Normal 0.0-0.2 [facility] Comment on above: Performed By: #### H CRISTHIAN REDD MDIFF ####[facility] [address] [place] [address] Bands 0 % Normal 0-3 [facility] Comment on above: Performed By: #### H CRISTHIAN REDD MDIFF ####[facility] [address] [place] [address] Basophils 0 % Normal 0-2 [facility] Comment on above: Performed By: #### H CRISTHIAN REDD MDIFF ####[facility] [address] [place] [address] Cells counted 100 Normal [facility] Comment on above: Performed By: #### H CRISTHIAN REDD MDIFF ####[facility] [address] [place] [address] Op Noteon 01-31-2022 Op Note [facility] [address] TELEMETRY [address] [facility] [address] Dept: [phone] Loc: [phone] Operative Report Patient Name: Siobhan Haas Date of : 1960 Date of Surgery: 01/31/22 Location: [facility] Preoperative Diagnosis: 1. Left lower extremity necrotizing fasciitis Postoperative Diagnosis: Same Procedure: 1. Debridement skin subcutaneous tissue 12 x 7 cm Surgeon: Amberly Schaefer MD 1st Assist: Clyde RODRÍGUEZ The first-social service assistant was critical to all steps of the operation, including retraction and arm extremity stabilization during exposure, as well as the deep and superficial wound closure. I understand that section 1842(b)(7)(D) of the Social Security Act generally prohibits Medicare physician fee schedule payment for the services of assistants at surgery in teaching hospitals when qualified residents are available to furnish such services. I certify that the services for which payment is claimed were medically necessary and that no qualified resident was available to perform the services. I further understand that these services are subject to post- payment review by the Medicare carrier. 2nd Assist: none Implants: None Specimens Removed: None Anesthesia: General Local Anesthesia: None Tourniquet:: None Estimated Blood Loss: <5ml Antibiotics: Scheduled on the floor Indications: Ms. Siobhan Haas is a 61 y.o. year-old female who has culture proven beta-hemolytic strep. I have discussed with her, preoperatively, the complications, limitations, expectations, alternatives, and risks of surgical intervention which she has demonstrated understanding. She understood the particular risk of debridement washout placement of wound VAC. No guarantees were given or implied. After having all of her questions answered to her satisfaction, Ms. Siobhan Haas has provided written informed consent to proceed. Please see previous notes for full operative discussion. Procedure: Siobhan Haas was identified in the preoperative waiting area. her operative site was initialed and consent was reviewed. Final questions were answered. Ms. Siobhan Haas was brought to the operating room and placed in the supine position. All bony prominences were well padded. The aforementioned anesthesia was administered. Antibiotics had already been given as scheduled on the floor. The operative extremity was prepped and draped in the usual sterile fashion. A surgical timeout was then performed with the patient's identification, the procedure to be performed being reviewed, verification that the patient had received preoperative antibiotics if indicated, and verification of the correct surgical side. The patient's ASA was verified by the nurse machine printer and the anesthesia staff. Fire risk was assessed. We inspected the wound all wound edges had healthy tissue there is no necrotic tissue purulence or other areas of concern. We then thoroughly irrigated out the entire wound with 3 L normal saline. We closed with 2-0 nylon vertical mattress sutures the medial and lateral superior incisions. We then inspected the area debrided inferiorly. That was healthy without any signs of infection. I then inspected the lateral malleolus wound. This was curetted and debrided there was no purulence or necrotic tissue appreciated the wounds were then subsequently irrigated out again with normal saline. Happy with the healthy wound bed I placed Black sponge dressing for wound VAC over the lateral malleolus wound in the inferior portion of the debridement. Adhesive dressing was placed and a bridge between the 2 wounds was made. The leg pad was applied and a good seal was achieved. The superior lateral wounds were then covered with Adaptic ABD pads and Kerlix gauze. Ms. Siobhan Haas was awakened from anesthesia having tolerated the procedure without apparent complication and was taken to the recovery room in stable condition. POST OPERATIVE PLAN Daily dressing changes to the medial and lateral incisions Wound VAC Sunday to be performed by wound care No further plans to return to the operating room. Outpatient Follow-up XRays: No Amberly Schaefer MD 01/31/2022 , 7:36 PM Normal [facility] CKon 01-30-2022 CK [Catalytic activity/Vol] 46 U/L Normal 30-170 [facility] Comment on above: Performed By: #### S APCR #### [facility] (deja mi) [facility] [address] [place] [address] CULTURE BLOODon 01-30-2022 Microscopic examination of blood, culture CULTURE BLOOD --> Status: F No growth at 5 days. Normal [facility] Comment on above: Performed By: #### C /BLD ####[facility] [employer] (deja mi) [id number] [place] [address] CULTURE BLOOD (Two)on 2021 Microscopic examination of blood, culture CULTURE BLOOD (Two) --> Status: F No growth at 5 days. Normal [facility] Comment on above: Performed By: #### C /BLT ####[facility] [place], [place] Comp Metabolic Panelon 01-30 ALT [Catalytic activity/Vol] 24 U/L Normal 0-34 [facility] Comment on above: Result Comment: The ALT test is performed by an updated assay method. Please note that the reference intervals have been changed and are now sex specific. Performed By: #### S APCR #### [facility] [address], [place] Calcium [Mass/Vol] 9.0 mg/dL Normal 8.4-10.4 [facility] Comment on above: Performed By: #### S APCR #### [facility] [address], [place] ALP [Catalytic activity/Vol] 92 U/L Normal 38-126 [facility] Comment on above: Performed By: #### S APCR #### [facility] [address], [place] Anion gap [Moles/Vol] 4 mmol/L Normal 3-13 [facility] Comment on above: Performed By: #### S APCR #### [facility] [address], [place] AST [Catalytic activity/Vol] 38 U/L Normal 15-46 [facility] Comment on above: Performed By: #### S APCR #### [facility] [address], [place] Bilirubin [Mass/Vol] 0.4 mg/dL Normal 0.2-1.3 [facility] Comment on above: Performed By: #### S APCR #### [facility] [address], [place] CO2 [Moles/Vol] 26 mmol/L Normal 22-30 [facility] Comment on above: Performed By: #### S APCR #### [facility] [address], [place] Creatinine [Mass/Vol] 0.90 mg/dL Normal 0.52-1.25 [facility] Comment on above: Performed By: #### S APCR #### [facility] [address], [place] GFR/1.73 sq M.predicted among blacks MDRD (S/P/Bld) [Vol rate/Area] 79.2 mL/min/{1.73_m2} Normal >60 [facility] Comment on above: Performed By: #### S APCR #### [facility] [address], [place] GFR/1.73 sq M.predicted among non-blacks MDRD (S/P/Bld) [Vol rate/Area] 68.3 mL/min/{1.73_m2} Normal >60 [facility] Comment on above: Result Comment: KDIG O guidelines provide the following GFR categories: Stage GFR(ml/min/1.73 m2) Terms G1 >=90 Normal or high G2 60-89 Mildly decreased* G3a 45-59 Mildly to moderately decreased G3b 30-44 Moderately to severely decreased G4 15-29 Severely decreased G5 <15 Kidney failure *Relative to young adult level. In the absence of evidence of kidney damage, neither GFR category G1 nor G2 fulfill the criteria for CKD. The CKD-EPI equation is validated in individuals 18 years of age and older. Currently the best equation for estimating glomerular filtration rate (GFR) from serum creatinine in children is the Bedside Bolton equation. It is less accurate in patients with extremes of muscle mass, restriction of dietary protein, ingestion of creatine, extra-renal metabolism of creatinine, or treatment with medications that affect renal tubular creatinine secretion. Performed By: #### S APCR #### [facility] [address] [place] Glucose [Mass/Vol] 97 mg/dL Normal 70-100 [facility] Comment on above: Performed By: #### S APCR #### [facility] [address] [place], [place] Protein [Mass/Vol] 6.8 g/dL Normal 6.3-8.2 [facility] Comment on above: Performed By: #### S APCR #### [facility] [address], [place] Urea nitrogen [Mass/Vol] 13 mg/dL Normal 9-20 [facility] Comment on above: Performed By: #### S APCR #### [facility] [address], [place] Potassium [Moles/Vol] 4.0 mmol/L Normal 3.5-5.1 [facility] Comment on above: Performed By: #### S APCR #### [place] [address], [place] Sodium [Moles/Vol] 137 mmol/L Normal 135-145 [facility] Comment on above: Performed By: #### S APCR #### [place] [address], [place] Albumin [Mass/Vol] 3.2 g/dL Low 3.5-5.0 [facility] Comment on above: Performed By: #### S APCR #### [place] [address], [place] Chloride [Moles/Vol] 107 mmol/L Normal 98-107 [facility] Comment on above: Performed By: #### S APCR #### [place], [place] Hemogram w/ Autodiffon 01-30 Erythrocyte distribution width (RBC) [Ratio] 15.6 % High 11.5-14.5 [facility] Comment on above: Performed By: #### S APCR #### [place] [address], [place] Hematocrit (Bld) [Volume fraction] 26.8 % Low 35.0-47.0 [facility] Comment on above: Performed By: #### S APCR #### [place] [address], [place] Hemoglobin (Bld) [Mass/Vol] 8.9 g/dL Low 11.7-16.0 [facility] Comment on above: Performed By: #### S APCR #### [place] [address], [place] MCH (RBC) [Entitic mass] 27.2 pg Normal 26.0-34.0 [facility] Comment on above: Performed By: #### S APCR #### [place] [address] [place] MCHC 33.2 % Normal 32.0-36.0 [facility] Comment on above: Performed By: #### S APCR #### [place], [place] MCV (RBC) [Entitic vol] 81.8 fL Normal 79.0-98.0 [facility] Comment on above: Performed By: #### S APCR #### [place] [address], [place] Platelet mean volume (Bld) [Entitic vol] 8.0 fL Normal 7.4-12.4 [facility] Comment on above: Result Comment: MPV is a calculated measurement using platelet volume ratio. Performed By: #### S APCR #### [place] [address], [place] Platelets (Bld) [#/Vol] 466 10*3/uL High 140-440 [facility] Comment on above: Performed By: #### S APCR #### [place] [address] [address], [place] RBC (Bld) [#/Vol] 3.28 10*6/uL Low 3.80-5.20 [facility] Comment on above: Performed By: #### S APCR #### [place], [place] WBC (Bld) [#/Vol] 10.6 10*3/uL Normal 3.6-10.7 [facility] Comment on above: Performed By: #### S APCR #### [address] Manual Diffon 01-30-2022 Abs Baso Cnt 0.0 10*3/uL Normal 0.0-0.2 [facility] Comment on above: Performed By: #### S APCR #### [facility] [address], [place] Abs Eosin Cnt 0.4 10*3/uL Normal 0.0-0.5 [facility] Comment on above: Performed By: #### S APCR #### [place] [address], [place] Abs Lymph Cnt 2.3 10*3/uL Normal 1.1-4.5 [facility] Comment on above: Performed By: #### S APCR #### [place] [address], [place] Abs Monocyte Cnt 0.7 10*3/uL Normal 0.2-1.1 [facility] Comment on above: Performed By: #### S APCR #### [place], [place] Abs Neutrophile Cnt 6.8 10*3/uL Normal 2.2-8.2 [facility] Comment on above: Performed By: #### S APCR #### [place] [address], [place] Anisocytosis Slight Normal [facility] Comment on above: Performed By: #### S APCR #### [place] [address], [place] Bands 1 % Normal 0-3 [facility] Comment on above: Performed By: #### S APCR #### [place] [address], [place] Basophils 0 % Normal 0-2 [facility] Comment on above: Performed By: #### S APCR #### [place] [address], [place] Cells counted [address] [facility] Comment on above: Performed By: #### S APCR #### [place] [address], [place] Eosinophils 4 % Normal 1-6 [facility] Comment on above: Performed By: #### S APCR #### [place], [place] Hypochromia Slight Normal [facility] Comment on above: Performed By: #### S APCR #### [facility] [address], [place] Lymphocytes 22 % Normal 20-40 [facility] Comment on above: Performed By: #### S APCR #### [facility] [address], [place] Metamyelocytes 3 % Abnormal <1 [facility] Comment on above: Performed By: #### S APCR #### [facility] [address], [place] Monocytes 7 % Normal 2-10 [facility] Comment on above: Performed By: #### S APCR #### [facility] [address], [place] Poikilocytosis Slight Normal [facility] Comment on above: Performed By: #### S APCR #### [facility] [address], [place] Polychromasia Slight Normal [facility] Comment on above: Performed By: #### S APCR #### [facility] [address], [place] RBC Morphology ABNORMAL Normal [facility] Comment on above: Performed By: #### S APCR #### [facility] [address], [place] Seg Neutrophils 63 % Normal 40-80 [facility] Comment on above: Performed By: #### S APCR #### [facility] [address], [place] Stomatocytes Slight Normal [facility] Comment on above: Performed By: #### S APCR #### [facility] [address], [place] Tear Drop Forms Slight Normal [facility] Comment on above: Performed By: #### S APCR #### [facility] [address], [place] CKon 01-29-2022 CK [Catalytic activity/Vol] 102 U/L Normal 30-170 [facility] Comment on above: Performed By: #### H EMDF, CK3, MDIFF, CMP3 ####[place] [address] [place] [address] Comp Metabolic Panelon 01-29 ALP [Catalytic activity/Vol] 83 U/L Normal 38-126 [facility] Comment on above: Performed By: #### MARLIN GIBSON MDIFF, CMP3 ####[place] [address] [place] [address] ALT [Catalytic activity/Vol] 25 U/L Normal 0-34 [facility] Comment on above: Result Comment: The ALT test is performed by an updated assay method. Please note that the reference intervals have been changed and are now sex specific. Performed By: #### MARLIN GIBSON MDIFF, CMP3 ####[place] [address] [place] [address] Anion gap [Moles/Vol] 5 mmol/L Normal 3-13 [facility] Comment on above: Performed By: #### MARLIN GIBSON MDIFF, CMP3 ####[place] [address] [place] [address] AST [Catalytic activity/Vol] 34 U/L Normal 15-46 [facility] Comment on above: Performed By: #### MARILN GIBSON MDIFF, CMP3 ####[place] [address] [place] [address] Calcium [Mass/Vol] 9.1 mg/dL Normal 8.4-10.4 [facility] Comment on above: Performed By: #### MARLIN GIBSON MDIFF, CMP3 ####[place] [address] [place] [address] CO2 [Moles/Vol] 24 mmol/L Normal 22-30 [facility] Comment on above: Performed By: #### MARLIN GIBSON MDIFF, CMP3 ####[place] [address] [place] [address] Glucose [Mass/Vol] 126 mg/dL High 70-100 [facility] Comment on above: Performed By: #### MARLIN GIBSON MDIFF, CMP3 ####[place] [address] [place] [address] Protein [Mass/Vol] 6.6 g/dL Normal 6.3-8.2 [facility] Comment on above: Performed By: #### H MARLIN REDD MDIFF, CMP3 ####[place] [address] [place] [address] Urea nitrogen [Mass/Vol] 17 mg/dL Normal 9-20 [facility] Comment on above: Performed By: #### H MARLIN REDD, LUIGI, CMP3 ####[place] [address] [place] [address] Bilirubin [Mass/Vol] 0.4 mg/dL Normal 0.2-1.3 [facility] Comment on above: Performed By: #### H MARLIN REDD, LUIGI, CMP3 ####[address] [place] [address] Creatinine [Mass/Vol] 0.85 mg/dL Normal 0.52-1.25 [facility] Comment on above: Performed By: #### H MARLIN REDD, LUIGI, CMP3 ####[place] [address] [place] [address] GFR/1.73 sq M.predicted among blacks MDRD (S/P/Bld) [Vol rate/Area] 84.9 mL/min/{1.73_m2} Normal >60 [facility] Comment on above: Performed By: #### H MARLIN REDD, LUIGI, CMP3 ####[address] [place] [address] GFR/1.73 sq M.predicted among non-blacks MDRD (S/P/Bld) [Vol rate/Area] 73.2 mL/min/{1.73_m2} Normal >60 [facility] Comment on above: Result Comment: KDIG O guidelines provide the following GFR categories: Stage GFR(ml/min/1.73 m2) Terms G1 >=90 Normal or high G2 60-89 Mildly decreased* G3a 45-59 Mildly to moderately decreased G3b 30-44 Moderately to severely decreased G4 15-29 Severely decreased G5 <15 Kidney failure *Relative to young adult level. In the absence of evidence of kidney damage, neither GFR category G1 nor G2 fulfill the criteria for CKD. The CKD-EPI equation is validated in individuals 18 years of age and older. Currently the best equation for estimating glomerular filtration rate (GFR) from serum creatinine in children is the Bedside Bolton equation. It is less accurate in patients with extremes of muscle mass, restriction of dietary protein, ingestion of creatine, extra-renal metabolism of creatinine, or treatment with medications that affect renal tubular creatinine secretion. Performed By: #### H MARLIN REDD MDIFF, CMP3 ####[address] [place] [place] [address] Albumin [Mass/Vol] 3.1 g/dL Low 3.5-5.0 [facility] Comment on above: Performed By: #### H MARLIN REDD MDIFF, CMP3 ####[address] [facility] [place] [address] Potassium [Moles/Vol] 4.0 mmol/L Normal 3.5-5.1 [facility] Comment on above: Performed By: #### H MARLIN REDD MDIFF CMP3 ####[address] [facility] [place] [address] Sodium [Moles/Vol] 137 mmol/L Normal 135-145 [facility] Comment on above: Performed By: #### H MARLIN REDD MDIFF CMP3 ####[address] [place] [address] Chloride [Moles/Vol] 108 mmol/L High 98-107 [facility] Comment on above: Performed By: #### H MARLIN REDD MDIFF CMP3 ####[address] [place] [address] Hemogram w/ Autodiffon 01-29 Erythrocyte distribution width (RBC) [Ratio] 15.4 % High 11.5-14.5 [facility] Comment on above: Performed By: #### H MARLIN REDD MDIFF, CMP3 ####[address] [place] [address] Hematocrit (Bld) [Volume fraction] 25.0 % Low 35.0-47.0 [facility] Comment on above: Performed By: #### H MARLIN REDD, IFF, CMP3 ####[place] [address] [place] [address] Hemoglobin (Bld) [Mass/Vol] 8.2 g/dL Low 11.7-16.0 [facility] Comment on above: Performed By: #### H MARLIN REDD, IFF, CMP3 ####[place] [address] [place] [address] MCH (RBC) [Entitic mass] 26.9 pg Normal 26.0-34.0 [facility] Comment on above: Performed By: #### H MARLIN REDD, IFF, CMP3 ####[address] [place] [address] MCHC 32.9 % Normal 32.0-36.0 [facility] Comment on above: Performed By: #### H MARLIN REDD, IFF, CMP3 ####[address] [place] [address] MCV (RBC) [Entitic vol] 81.8 fL Normal 79.0-98.0 [facility] Comment on above: Performed By: #### H MARLIN REDD, IFF, CMP3 ####[address] [place] [address] Platelet mean volume (Bld) [Entitic vol] 8.4 fL Normal 7.4-12.4 [facility] Comment on above: Result Comment: MPV is a calculated measurement using platelet volume ratio. Performed By: #### H MARLIN REDD, IFF, CMP3 ####[address] [place] [address] Platelets (Bld) [#/Vol] 411 10*3/uL Normal 140-440 [facility] Comment on above: Performed By: #### H MARLIN REDD MDIFF, CMP3 ####[place] [address] [place] [address] RBC (Bld) [#/Vol] 3.06 10*6/uL Low 3.80-5.20 [facility] Comment on above: Performed By: #### H MARLIN REDD MDIFF, CMP3 ####[place] [address] [place] [address] WBC (Bld) [#/Vol] 10.6 10*3/uL Normal 3.6-10.7 [facility] Comment on above: Performed By: #### H CHRISTOPHER REDD3, IFF, CMP3 ####[place] [address] [facility] [place] [address] Manual Diffon 01-29-2022 Abs Baso Cnt 0.0 10*3/uL Normal 0.0-0.2 [facility] Comment on above: Performed By: #### H CHRISTOPHER REDD3, MDIFF, CMP3 ####[place] [address] [place] [address] Abs Eosin Cnt 0.2 10*3/uL Normal 0.0-0.5 [facility] Comment on above: Performed By: #### H CHRISTOPHER REDD3, IFF, CMP3 ####[address] [place] [address] Abs Lymph Cnt 1.3 10*3/uL Normal 1.1-4.5 [facility] Comment on above: Performed By: #### H CHRISTOPHER REDD3, MDIFF, CMP3 ####[place] [address] [place] [address] Abs Monocyte Cnt 0.6 10*3/uL Normal 0.2-1.1 [facility] Comment on above: Performed By: #### H TRAMAINE CK3, MDIFF, CMP3 ####[place] [address] [place] [address] Abs Neutrophile Cnt 8.0 10*3/uL Normal 2.2-8.2 [facility] Comment on above: Performed By: #### H CHRISTOPHER REDD3, MDIFF, CMP3 ####[place] [address] [place] [address] Anisocytosis Slight Normal [facility] Comment on above: Performed By: #### H EMDF CK3, MDIFF, CMP3 ####[place] [address] [place] [address] Bands 1 % Normal 0-3 [facility] Comment on above: Performed By: #### H EMDF, CK3, MDIFF, CMP3 ####[facility] [address] [place] [address] Basophils 0 % Normal 0-2 [facility] Comment on above: Performed By: #### H EMDF, CK3, MDIFF, CMP3 ####[facility] [place] [address] Cells counted 100 Normal [facility] Comment on above: Performed By: #### H EMDF, CK3, MDIFF, CMP3 ####[facility] [place] [address] Clumped Platelets see below Normal [facility] Comment on above: Result Comment: Plat elet clumping noted; this may be corrected by using Na Citrate. Performed By: #### H EMDF, CK3, MDIFF, CMP3 ####[facility] [place] [address] Eosinophils 2 % Normal 1-6 [facility] Comment on above: Performed By: #### H EMDF, CK3, MDIFF, CMP3 ####[facility] [place] [address] Hypochromia Slight Normal [facility] Comment on above: Performed By: #### H EMDF, CK3, MDIFF, CMP3 ####[facility] [place] [address] Lymphocytes 12 % Low 20-40 [facility] Comment on above: Performed By: #### H EMDF, CK3, MDIFF, CMP3 ####[facility] [place] [address] Metamyelocytes 3 % Abnormal <1 [facility] Comment on above: Performed By: #### H EMDF, CK3, MDIFF, CMP3 ####[facility] [place] [address] Monocytes 6 % Normal 2-10 [facility] Comment on above: Performed By: #### H EMDF, CK3, MDIFF, CMP3 ####[facility] [place] [address] Polychromasia Slight Normal [facility] Comment on above: Performed By: #### H EMDF, CK3, MDIFF, CMP3 ####[facility] [address] Promyelocytes 2 % Abnormal <1 [facility] Comment on above: Performed By: #### H EMDF, CK3, MDIFF, CMP3 ####[facility] [address] RBC Morphology ABNORMAL Normal [facility] Comment on above: Performed By: #### H EMDF, CK3, MDIFF, CMP3 ####[facility] [place] [address] Seg Neutrophils 74 % Normal 40-80 [facility] Comment on above: Performed By: #### H EMDF, CK3, MDIFF, CMP3 ####[facility] [place] [address] Stomatocytes Slight Normal [facility] Comment on above: Performed By: #### H EMDF, CK3, MDIFF, CMP3 ####[facility] [facility] [place] [address] Tear Drop Forms Slight Normal [facility] Comment on above: Performed By: #### H EMDF, CK3, MDIFF, CMP3 ####[facility] [facility] [place] [address] CKon 01-28-2022 CK [Catalytic activity/Vol] 69 U/L Normal 30-170 [facility] Comment on above: Performed By: #### Shira PÉREZ #### [facility] [employer] (deja mi) [facility] [address], [place] CULT/STAIN - AEROBIC AND REFUGIO EROBICon 01-28-2022 CULT/STAIN - AEROBIC AND ANAEROBIC STAIN GRAM --> Status: F No polymorphonuclear cells/lpf. No organisms seen. No organisms seen. CULT./ST. BACTERIA --> Status: F No growth at 3 days. CULTURE ANAEROBE --> Status: F No growth of anaerobes at 5 days. Normal [facility] Comment on above: Performed By: #### Shira PÉREZ ####[facility] [employer] (de[employer]) [id number] [place], [place] CULT/STAIN - AEROBIC AND ANAEROBIC STAIN GRAM --> Status: F No polymorphonuclear cells/lpf. No organisms seen. No organisms seen. CULT./ST. BACTERIA --> Status: F No growth at 3 days. CULTURE ANAEROBE --> Status: F No growth of anaerobes at 5 days. Normal [facility] Comment on above: Performed By: #### C ELISA #### [facility] [address], [place] CULTURE ANAEROBEon 2 CULTURE ANAEROBE CULTURE ANAEROBE --> Status: F No growth of anaerobes at 5 days. Normal [facility] Comment on above: Order Comment: ORDER WAS CANCELLED 01/24/22 20:38, Wrong test ordered. 01/24/2022 20:38. Performed By: #### C RUBEN C/REFUGIO ####[place] [address] [place], [place] CULTURE BLOOD (Two)on 2021 Microscopic examination of blood, culture CULTURE BLOOD (Two) --> Status: F No growth at 5 days. Normal [facility] Comment on above: Performed By: #### C /BLT ####[place] [address] [place], [place] Comp Metabolic Panelon 01-28 ALT [Catalytic activity/Vol] 20 U/L Normal 0-34 [facility] Comment on above: Result Comment: The ALT test is performed by an updated assay method. Please note that the reference intervals have been changed and are now sex specific. Performed By: #### C ELISA #### [facility] [address], [place] Calcium [Mass/Vol] 8.9 mg/dL Normal 8.4-10.4 [facility] Comment on above: Performed By: #### C ELISA #### [facility] [address], [place] Glucose [Mass/Vol] 153 mg/dL High 70-100 [facility] Comment on above: Performed By: #### C ELISA #### [facility] [address], [place] ALP [Catalytic activity/Vol] 87 U/L Normal 38-126 [facility] Comment on above: Performed By: #### C ELISA #### [facility] [address], [place] Anion gap [Moles/Vol] 4 mmol/L Normal 3-13 [facility] Comment on above: Performed By: #### C ELISA #### [facility] [address], [place] AST [Catalytic activity/Vol] 33 U/L Normal 15-46 [facility] Comment on above: Performed By: #### C ELISA #### [facility] [address], [place] Bilirubin [Mass/Vol] 0.3 mg/dL Normal 0.2-1.3 [facility] Comment on above: Performed By: #### C ELISA #### [facility] [address], [place] CO2 [Moles/Vol] 23 mmol/L Normal 22-30 [facility] Comment on above: Performed By: #### C ELISA #### [facility] [address], [place] Creatinine [Mass/Vol] 0.99 mg/dL Normal 0.52-1.25 [facility] Comment on above: Performed By: #### C ELISA #### [facility] [address], [place] GFR/1.73 sq M.predicted among blacks MDRD (S/P/Bld) [Vol rate/Area] 70.6 mL/min/{1.73_m2} Normal >60 [facility] Comment on above: Performed By: #### C ELISA #### [facility] [address], [place] GFR/1.73 sq M.predicted among non-blacks MDRD (S/P/Bld) [Vol rate/Area] 60.9 mL/min/{1.73_m2} Normal >60 [facility] Comment on above: Result Comment: KDIG O guidelines provide the following GFR categories: Stage GFR(ml/min/1.73 m2) Terms G1 >=90 Normal or high G2 60-89 Mildly decreased* G3a 45-59 Mildly to moderately decreased G3b 30-44 Moderately to severely decreased G4 15-29 Severely decreased G5 <15 Kidney failure *Relative to young adult level. In the absence of evidence of kidney damage, neither GFR category G1 nor G2 fulfill the criteria for CKD. The CKD-EPI equation is validated in individuals 18 years of age and older. Currently the best equation for estimating glomerular filtration rate (GFR) from serum creatinine in children is the Bedside Bolton equation. It is less accurate in patients with extremes of muscle mass, restriction of dietary protein, ingestion of creatine, extra-renal metabolism of creatinine, or treatment with medications that affect renal tubular creatinine secretion. Performed By: #### Shira PÉREZ #### [address] Protein [Mass/Vol] 6.3 g/dL Normal 6.3-8.2 [facility] Comment on above: Performed By: #### Shira PÉREZ #### [address] Urea nitrogen [Mass/Vol] 25 mg/dL High 9-20 [facility] Comment on above: Performed By: #### Shira PÉREZ #### [address] Potassium [Moles/Vol] 4.6 mmol/L Normal 3.5-5.1 [facility] Comment on above: Performed By: #### Shira PÉREZ #### [address] Sodium [Moles/Vol] 136 mmol/L Normal 135-145 [facility] Comment on above: Performed By: #### Shira PÉREZ #### [address] Albumin [Mass/Vol] 3.0 g/dL Low 3.5-5.0 [facility] Comment on above: Performed By: #### Shira PÉREZ #### [address] Chloride [Moles/Vol] 109 mmol/L High 98-107 [facility] Comment on above: Performed By: #### Shira PÉREZ #### [facility] [address], [place] Hemogram w/ Autodiffon 01-28 Erythrocyte distribution width (RBC) [Ratio] 15.5 % High 11.5-14.5 [facility] Comment on above: Performed By: #### Shira PÉREZ #### [place] [address], [place] Hematocrit (Bld) [Volume fraction] 25.1 % Low 35.0-47.0 [facility] Comment on above: Performed By: #### Shira PÉREZ #### [place] [address], [place] Hemoglobin (Bld) [Mass/Vol] 8.2 g/dL Low 11.7-16.0 [facility] Comment on above: Performed By: #### Shira PÉREZ #### [place] [address], [place] MCH (RBC) [Entitic mass] 26.5 pg Normal 26.0-34.0 [facility] Comment on above: Performed By: #### Shira PÉREZ #### [place] [address], [place] MCHC 32.4 % Normal 32.0-36.0 [facility] Comment on above: Performed By: #### Shira PÉREZ #### [place] [address], [place] MCV (RBC) [Entitic vol] 81.7 fL Normal 79.0-98.0 [facility] Comment on above: Performed By: #### Shira PÉREZ #### [place] [address], [place] Platelet mean volume (Bld) [Entitic vol] 9.0 fL Normal 7.4-12.4 [facility] Comment on above: Result Comment: MPV is a calculated measurement using platelet volume ratio. Performed By: #### Shira PÉREZ #### [place] [address], [place] Platelets (Bld) [#/Vol] 359 10*3/uL Normal 140-440 [facility] Comment on above: Performed By: #### Shira PÉREZ #### [place] [address], [place] RBC (Bld) [#/Vol] 3.08 10*6/uL Low 3.80-5.20 [facility] Comment on above: Performed By: #### Shira PÉREZ #### [place] [address], [place] WBC (Bld) [#/Vol] 15.2 10*3/uL High 3.6-10.7 [facility] Comment on above: Performed By: #### Shira PÉREZ #### [place] [address], [place] Manual Diffon 01-28-2022 Abs Baso Cnt 0.0 10*3/uL Normal 0.0-0.2 [facility] Comment on above: Performed By: #### Shira PÉREZ #### [place] [address], [place] Abs Eosin Cnt 0.0 10*3/uL Normal 0.0-0.5 [facility] Comment on above: Performed By: #### Shira PÉREZ #### [place] [address], [place] Abs Lymph Cnt 1.1 10*3/uL Normal 1.1-4.5 [facility] Comment on above: Performed By: #### Shira PÉREZ #### [place] [address], [place] Abs Monocyte Cnt 0.6 10*3/uL Normal 0.2-1.1 [facility] Comment on above: Performed By: #### Shira PÉREZ #### [place] [address], [place] Abs Neutrophile Cnt 12.9 10*3/uL High 2.2-8.2 [facility] Comment on above: Performed By: #### Shira PÉREZ #### [place] [address], [place] Anisocytosis Slight Normal [facility] Comment on above: Performed By: #### Shira PÉREZ #### [facility] [address], [place] Bands 1 % Normal 0-3 [facility] Comment on above: Performed By: #### Shira PÉREZ #### [facility] [facility] [address], [place] Basophils 0 % Normal 0-2 [facility] Comment on above: Performed By: #### Shira PÉREZ #### [facility] [address], [place] Cells counted 100 Normal [facility] Comment on above: Performed By: #### Shira PÉREZ #### [facility] [address], [place] Eosinophils 0 % Low 1-6 [facility] Comment on above: Performed By: #### Shira PÉREZ #### [facility] [address], [place] Hypochromia Slight Normal [facility] Comment on above: Performed By: #### Shira PÉREZ #### [facility] [address], [place] Lymphocytes 7 % Low 20-40 [facility] Comment on above: Performed By: #### Shira PÉREZ #### [facility] [address], [place] Monocytes 4 % Normal 2-10 [facility] Comment on above: Performed By: #### Shira PÉREZ #### [facility] [address], [place] Myelocytes 4 % Abnormal <1 [facility] Comment on above: Performed By: #### Shira PÉREZ #### [facility] [address], [place] Ovalocytes Slight Normal [facility] Comment on above: Performed By: #### Shira PÉREZ #### [facility] [address], [place] Polychromasia Slight Normal [facility] Comment on above: Performed By: #### Shira PÉREZ #### [facility] [address], [place] RBC Morphology ABNORMAL Normal [facility] Comment on above: Performed By: #### C ELISA #### [facility] [address], [place] Seg Neutrophils 84 % High 40-80 [facility] Comment on above: Performed By: #### C ELISA #### [facility] [address], [place] CR Chest Portableon 01-28-20 22 CR Chest Portable Patient Name: SIOBHAN MCINTOSH Diagnostic Radiology ACCESSION EXAM DATE/TIME PROCEDURE ORDERING PROVIDER [id number] 01/27/2022 11:05 EDT CR Chest Portable UNASSIGNED, UNASSIGNED CPT code 35256 Reason For Exam (CR Chest Portable) hypoxia Report INDICATION:Hypoxia. PORTABLE CHEST: COMPARISON: 11/18/2021. Place of a right subclavian venous catheter, the tip of which lies in the region of the distal superior vena cava. No pneumothorax. Left-sided PICC line is no longer present. Mild increased vascularity suggest mild venous congestion without dinora edema. No focal areas of consolidation. No pleural effusions. Heart and mediastinal contours are stable. Report Dictated on Final Dictating Physician: MD PERRY LAURA Signed Date and Time: 01/27/2022 11:34 am Signed by: MD PERRY LAURA Transcribed Date and Time: 01/27/2022 11:35 Normal [facility] CULTURE ANAEROBEon CULTURE ANAEROBE CULTURE ANAEROBE --> Status: F No growth of anaerobes at 5 days. Normal [facility] Comment on above: Performed By: #### C /REFUGIO, S/GRM ####[facility] [place], [place] #### CS/BA ####[facility] [place] [id number] [place], [place] [id number] CULTURE BLOODon 01-27-2022 Microscopic examination of blood, culture CULTURE BLOOD --> Status: F No growth at 5 days. Normal [facility] Comment on above: Performed By: #### C /BLD ####[facility] [facility], [place] Comp Metabolic Panelon 01-27 ALP [Catalytic activity/Vol] 96 U/L Normal 38-126 [facility] Comment on above: Performed By: #### P SARAH #### [facility] [address], [place] ALT [Catalytic activity/Vol] 24 U/L Normal 0-34 [facility] Comment on above: Result Comment: The ALT test is performed by an updated assay method. Please note that the reference intervals have been changed and are now sex specific. Performed By: #### P SARAH #### [facility] [address] [facility], [place] Calcium [Mass/Vol] 8.8 mg/dL Normal 8.4-10.4 [facility] Comment on above: Performed By: #### P SARAH #### [facility] [address] [facility], [place] Glucose [Mass/Vol] 105 mg/dL High 70-100 [facility] Comment on above: Performed By: #### P SARAH #### [facility] [address] [facility], [place] Urea nitrogen [Mass/Vol] 44 mg/dL High 9-20 [facility] Comment on above: Performed By: #### P SARAH #### [facility] [address], [place] Anion gap [Moles/Vol] 8 mmol/L Normal 3-13 [facility] Comment on above: Performed By: #### P SARAH #### [facility] [address] [facility], [place] AST [Catalytic activity/Vol] 32 U/L Normal 15-46 [facility] Comment on above: Performed By: #### P SARAH #### [facility] [address] [facility], [place] Bilirubin [Mass/Vol] 0.5 mg/dL Normal 0.2-1.3 [facility] Comment on above: Performed By: #### P SARAH #### [facility] [address], [place] CO2 [Moles/Vol] 20 mmol/L Low 22-30 [facility] Comment on above: Performed By: #### P SARAH #### [facility] [address], [place] Creatinine [Mass/Vol] 1.70 mg/dL High 0.52-1.25 [facility] Comment on above: Performed By: #### P SARAH #### [facility] [address], [place] GFR/1.73 sq M.predicted among blacks MDRD (S/P/Bld) [Vol rate/Area] 36.7 mL/min/{1.73_m2} Abnormal >60 [facility] Comment on above: Performed By: #### P SARAH #### [facility] [address], [place] GFR/1.73 sq M.predicted among non-blacks MDRD (S/P/Bld) [Vol rate/Area] 31.7 mL/min/{1.73_m2} Abnormal >60 [facility] Comment on above: Result Comment: KDIG O guidelines provide the following GFR categories: Stage GFR(ml/min/1.73 m2) Terms G1 >=90 Normal or high G2 60-89 Mildly decreased* G3a 45-59 Mildly to moderately decreased G3b 30-44 Moderately to severely decreased G4 15-29 Severely decreased G5 <15 Kidney failure *Relative to young adult level. In the absence of evidence of kidney damage, neither GFR category G1 nor G2 fulfill the criteria for CKD. The CKD-EPI equation is validated in individuals 18 years of age and older. Currently the best equation for estimating glomerular filtration rate (GFR) from serum creatinine in children is the Bedside Bolton equation. It is less accurate in patients with extremes of muscle mass, restriction of dietary protein, ingestion of creatine, extra-renal metabolism of creatinine, or treatment with medications that affect renal tubular creatinine secretion. Performed By: #### P SARAH #### [facility] [address], [place] Protein [Mass/Vol] 6.6 g/dL Normal 6.3-8.2 [facility] Comment on above: Performed By: #### P SARAH #### [facility] [address], [place] Chloride [Moles/Vol] 109 mmol/L High 98-107 [facility] Comment on above: Performed By: #### P SARAH #### [facility] [address], [place] Potassium [Moles/Vol] 4.2 mmol/L Normal 3.5-5.1 [facility] Comment on above: Performed By: #### P SARAH #### [place] [address], [place] Sodium [Moles/Vol] 136 mmol/L Normal 135-145 [facility] Comment on above: Performed By: #### P SARAH #### [place] [address] [place], [place] Albumin [Mass/Vol] 3.3 g/dL Low 3.5-5.0 [facility] Comment on above: Performed By: #### P SARAH #### [place] [address] [place], [place] Hemogram w/ Autodiffon 01-27 Erythrocyte distribution width (RBC) [Ratio] 15.6 % High 11.5-14.5 [facility] Comment on above: Performed By: #### P SARAH #### [place] [address], [place] Hematocrit (Bld) [Volume fraction] 26.8 % Low 35.0-47.0 [facility] Comment on above: Performed By: #### P SARAH #### [place] [address], [place] Hemoglobin (Bld) [Mass/Vol] 8.9 g/dL Low 11.7-16.0 [facility] Comment on above: Performed By: #### P SARAH #### [place] [address], [place] MCH (RBC) [Entitic mass] 26.9 pg Normal 26.0-34.0 [facility] Comment on above: Performed By: #### P SARAH #### [facility] [address], [place] MCHC 33.0 % Normal 32.0-36.0 [facility] Comment on above: Performed By: #### P SARAH #### [place] [address] [place], [place] MCV (RBC) [Entitic vol] 81.5 fL Normal 79.0-98.0 [facility] Comment on above: Performed By: #### P SARAH #### [place] [address] [place], [place] Platelet mean volume (Bld) [Entitic vol] 9.0 fL Normal 7.4-12.4 [facility] Comment on above: Result Comment: MPV is a calculated measurement using platelet volume ratio. Performed By: #### P SARAH #### [place] [address], [place] Platelets (Bld) [#/Vol] 319 10*3/uL Normal 140-440 [facility] Comment on above: Performed By: #### P SARAH #### [place] [address] [place], [place] RBC (Bld) [#/Vol] 3.29 10*6/uL Low 3.80-5.20 [facility] Comment on above: Performed By: #### P SARAH #### [place] [address] [place], [place] WBC (Bld) [#/Vol] 11.2 10*3/uL High 3.6-10.7 [facility] Comment on above: Performed By: #### P SARAH #### [place] [address] [place], [place] Manual Diffon 01-27-2022 Abs Eosin Cnt 0.7 10*3/uL High 0.0-0.5 [facility] Comment on above: Performed By: #### P SARAH #### [place] [address] [place], [place] Abs Lymph Cnt 1.8 10*3/uL Normal 1.1-4.5 [facility] Comment on above: Performed By: #### P SARAH #### [facility] [address], [place] Abs Monocyte Cnt 1.0 10*3/uL Normal 0.2-1.1 [facility] Comment on above: Performed By: #### P SARAH #### [facility] [address], [place] Abs Neutrophile Cnt 7.4 10*3/uL Normal 2.2-8.2 [facility] Comment on above: Performed By: #### P SARAH #### [facility] [address], [place] Anisocytosis Slight Normal [facility] Comment on above: Performed By: #### P SARAH #### [facility] [address], [place] Bands 1 % Normal 0-3 [facility] Comment on above: Performed By: #### P SARAH #### [facility] [address], [place] Eosinophils 6 % Normal 1-6 [facility] Comment on above: Performed By: #### P SARAH #### [facility] [address], [place] Lymphocytes 16 % Low 20-40 [facility] Comment on above: Performed By: #### P SARHA #### [facility] [address], [place] Metamyelocytes 2 % Abnormal <1 [facility] Comment on above: Performed By: #### P SARAH #### [facility] [address], [place] Monocytes 9 % Normal 2-10 [facility] Comment on above: Performed By: #### P SARAH #### [facility] [address], [place] Myelocytes 1 % Abnormal <1 [facility] Comment on above: Performed By: #### P SARAH #### [facility] [address], [place] Ovalocytes Slight Normal [facility] Comment on above: Performed By: #### P SARAH #### [facility] [address], [place] Polychromasia Slight Normal [facility] Comment on above: Performed By: #### P SARAH #### [facility] [address], [place] RBC Morphology ABNORMAL Normal [facility] Comment on above: Performed By: #### P SARAH #### [facility] [address], [place] Seg Neutrophils 65 % Normal 40-80 [facility] Comment on above: Performed By: #### P SARAH #### [facility] [address], [place] Abs Baso Cnt 0.0 10*3/uL Normal 0.0-0.2 [facility] Comment on above: Performed By: #### P SARAH #### [facility] [address], [place] Basophils 0 % Normal 0-2 [facility] Comment on above: Performed By: #### P SARAH #### [facility] [address], [place] Cells counted 100 Normal [facility] Comment on above: Performed By: #### P SARAH #### [facility] [address], [place] Op Noteon 01-27-2022 Op Note [facility] SH[facility] [address]E TELEMETRY [address] [facility] [address] Dept: [phone] Loc: [phone] Operative Report Patient Name: Siobhan Haas Date of : 1960 Date of Surgery: 01/27/22 Location: [facility] Preoperative Diagnosis: 1. Necrotizing fasciitis left lower extremity Postoperative Diagnosis: Same Procedure: 1. Washout debridement skin subcutaneous tissue 13 x 7.5 cm 2. W wound VAC placement 13 x 7.5 Surgeon: Amberly Schaefer MD 1st Assist: Clyde RODRÍGUEZ 2nd Assist: Melia PGY 6 Implants: None Specimens Removed: None Anesthesia: General/Regional Local Anesthesia: None Tourniquet:: None Estimated Blood Loss: <5ml Antibiotics: Scheduled on the floor Indications: Ms. Siobhan Haas is a 61 y.o. year-old female is an inpatient currently being treated for neck traction fasciitis of her left lower extremity she presents today for second look repeat washout and placement of wound VAC. I have discussed with her, preoperatively, the complications, limitations, expectations, alternatives, and risks of surgical intervention which she has demonstrated understanding. She understood the particular risk of washout I&D and placement of wound VAC. No guarantees were given or implied. After having all of her questions answered to her satisfaction, Ms. Siobhan Haas has provided written informed consent to proceed. Please see previous notes for full operative discussion. Procedure: Siobhan Haas was identified in the preoperative waiting area. her operative site was initialed and consent was reviewed. Final questions were answered. Ms. Siobhan Haas was brought to the operating room and placed in the supine position. All bony prominences were well padded. The aforementioned anesthesia was administered. Antibiotics had already been given as scheduled on the floor. The operative extremity was prepped and draped in the usual sterile fashion. A surgical timeout was then performed with the patient's identification, the procedure to be performed being reviewed, verification that the patient had received preoperative antibiotics if indicated, and verification of the correct surgical side. The patient's ASA was verified by the nurse machine printer and the anesthesia staff. Fire risk was assessed. The wound VAC was removed and the wound was interrogated checking for any tunnels or nonviable tissue. Any nonviable skin subcutaneous tissue was then trimmed off overall the wound bed appeared significantly improved the skin superficially had decreased erythema. There is still significant amount of edema in the tissues as expected however there is no pockets of purulence appreciated. All the wounds were open copiously irrigated out with normal saline. We then reinspected for any signs of bleeding. The posterior aspect of the incision was closed loosely with 2-0 nylon sutures. I then placed a wound VAC in the rest of the anterior inferior incision. I then used adhesive drape and bridge to the 2 counterincisions on the on the more cephalad medial and lateral incisions. The muscle fibers were inspected all were viable prior to placing the wound VAC. All vital structures were covered and black sponges were used. A good seal was achieved. The lateral malleolus wound was then covered with bacitracin Adaptic and wrapped with Kerlix. Ms. Siobhan Haas was awakened from anesthesia having tolerated the procedure without apparent complication and was taken to the recovery room in stable condition. POST OPERATIVE PLAN We will plan 1 more washout and closed any wounds that are amenable at that time and convert her to VAC changes Sunday and Sunday by wound care. Outpatient Follow-up XRays: No Amberly Schaefer MD 01/27/2022 , 4:50 PM Normal [facility] CULT./ST. BACTERIAon 022 CULT./ST. BACTERIA 1 Organism Streptoco ccus species Rare Beta hemolytic streptococcus Group C/G Susceptibility testing not performed. Beta-hemolytic streptococci are universally susceptible to beta-lactam antibiotics. If patient is beta-lactam allergic, please call the [facility] ([phone]) within 2 days to request susceptibility testing. 2 Organism Staphylococcus lugdunensis Rare -- 1 Organism -- Antibiotic Result Intrp -- Ampicillin(MCKAYLA) <= 0.25 S Ceftriaxone(MCKAYLA) <= 0.12 S Clindamycin(MCKAYLA) R Vancomycin(MCKAYLA) 0.5 S Levofloxacin(MCKAYLA) 0.5 S Linezolid(MCKAYLA) <= 2 S Tetracycline(MCKAYLA) 2 S Erythromycin(MCKAYLA) 1 R Penicillin-G(MCKAYLA) <= 0.06 S -- 2 Organism -- Antibiotic Result Intrp -- Inducible Clindamycin Resistant(MCKAYLA)Neg Neg Clindamycin(MCKAYLA) I Vancomycin(MCKAYLA) <= 0.5 S Trimeth/Sulfa(MCKAYLA) <= 10 S Linezolid(MCKAYLA) 1 S Tigecycline(MCKAYLA) <= 0.12 S Doxycycline(MCKAYLA) <= 0.5 S Nafcillin/Oxacillin(MCKAYLA) >= 4 R Rifampin(MCKAYLA) <= 0.5 S Gentamicin(MCKAYLA) <= 0.5 S Normal [facility] Comment on above: Performed By: #### C /REFUGIO, S/GRM ####[place] [place], [place] #### CS/BA ####[place] [place] [address] [place], [place] Comp Metabolic Panelon 01-26 Calcium [Mass/Vol] 8.6 mg/dL Normal 8.4-10.4 [facility] Comment on above: Performed By: #### P SARAH #### [facility] [address], [place] ALP [Catalytic activity/Vol] 123 U/L Normal 38-126 [facility] Comment on above: Performed By: #### P SARAH #### [place] [address] [address] [place], [place] ALT [Catalytic activity/Vol] 26 U/L Normal 0-34 [facility] Comment on above: Result Comment: The ALT test is performed by an updated assay method. Please note that the reference intervals have been changed and are now sex specific. Performed By: #### P SARAH #### [facility] [address] [facility], [place] Anion gap [Moles/Vol] 8 mmol/L Normal 3-13 [facility] Comment on above: Performed By: #### P SARAH #### [facility] [address] [facility] [place] AST [Catalytic activity/Vol] 43 U/L Normal 15-46 [facility] Comment on above: Performed By: #### P SARAH #### [facility] [address] [facility], [place] Bilirubin [Mass/Vol] 0.6 mg/dL Normal 0.2-1.3 [facility] Comment on above: Performed By: #### P SARAH #### [facility] [address] [facility], [place] CO2 [Moles/Vol] 20 mmol/L Low 22-30 [facility] Comment on above: Performed By: #### P SARAH #### [facility] [address] [facility] [place] Glucose [Mass/Vol] 117 mg/dL High 70-100 [facility] Comment on above: Performed By: #### P SARAH #### [facility] [address] [facility] [place] Protein [Mass/Vol] 6.7 g/dL Normal 6.3-8.2 [facility] Comment on above: Performed By: #### P SARAH #### [facility] [address] [facility], [place] Urea nitrogen [Mass/Vol] 40 mg/dL High 9-20 [facility] Comment on above: Performed By: #### P SARAH #### [facility] [address] [facility] [place] Creatinine [Mass/Vol] 2.38 mg/dL High 0.52-1.25 [facility] Comment on above: Performed By: #### P SARAH #### [facility] [address] [facility], [place] GFR/1.73 sq M.predicted among blacks MDRD (S/P/Bld) [Vol rate/Area] 24.4 mL/min/{1.73_m2} Abnormal >60 [facility] Comment on above: Performed By: #### P SARAH #### [address] GFR/1.73 sq M.predicted among non-blacks MDRD (S/P/Bld) [Vol rate/Area] 21.1 mL/min/{1.73_m2} Abnormal >60 [facility] Comment on above: Result Comment: KDIG O guidelines provide the following GFR categories: Stage GFR(ml/min/1.73 m2) Terms G1 >=90 Normal or high G2 60-89 Mildly decreased* G3a 45-59 Mildly to moderately decreased G3b 30-44 Moderately to severely decreased G4 15-29 Severely decreased G5 <15 Kidney failure *Relative to young adult level. In the absence of evidence of kidney damage, neither GFR category G1 nor G2 fulfill the criteria for CKD. The CKD-EPI equation is validated in individuals 18 years of age and older. Currently the best equation for estimating glomerular filtration rate (GFR) from serum creatinine in children is the Bedside Bolton equation. It is less accurate in patients with extremes of muscle mass, restriction of dietary protein, ingestion of creatine, extra-renal metabolism of creatinine, or treatment with medications that affect renal tubular creatinine secretion. Performed By: #### P SARAH #### [address] Albumin [Mass/Vol] 3.3 g/dL Low 3.5-5.0 [facility] Comment on above: Performed By: #### P SARAH #### [place] [address] [place] Chloride [Moles/Vol] 107 mmol/L Normal 98-107 [facility] Comment on above: Performed By: #### P SARAH #### [address] Potassium [Moles/Vol] 4.1 mmol/L Normal 3.5-5.1 [facility] Comment on above: Performed By: #### P SARAH #### [address] Sodium [Moles/Vol] 135 mmol/L Normal 135-145 [facility] Comment on above: Performed By: #### P SARAH #### [place] [address] [address] [place], [place] Creatinine, Ur Randomon 12-31 Creatinine, Ur Random 63.3 mg/dL Normal No Range [facility] Comment on above: Performed By: #### S APCR #### [place] [address] [place], [place] Hemogram w/ Autodiffon 01-26 Erythrocyte distribution width (RBC) [Ratio] 15.4 % High 11.5-14.5 [facility] Comment on above: Performed By: #### P SARAH #### [place] [address] [place], [place] Hematocrit (Bld) [Volume fraction] 28.6 % Low 35.0-47.0 [facility] Comment on above: Performed By: #### P SARAH #### [place] [address] [place], [place] Hemoglobin (Bld) [Mass/Vol] 9.2 g/dL Low 11.7-16.0 [facility] Comment on above: Performed By: #### P SARAH #### [place] [address] [place], [place] MCH (RBC) [Entitic mass] 26.4 pg Normal 26.0-34.0 [facility] Comment on above: Performed By: #### P SARAH #### [place] [address] [address] [place], [place] MCHC 32.0 % Normal 32.0-36.0 [facility] Comment on above: Performed By: #### P SARAH #### [address] MCV (RBC) [Entitic vol] 82.5 fL Normal 79.0-98.0 [facility] Comment on above: Performed By: #### P SARAH #### [place] [address] [place] [address] Platelet mean volume (Bld) [Entitic vol] 9.6 fL Normal 7.4-12.4 [facility] Comment on above: Result Comment: MPV is a calculated measurement using platelet volume ratio. Performed By: #### P SARAH #### [place] [address] [address] [place], [place] Platelets (Bld) [#/Vol] 268 10*3/uL Normal 140-440 [facility] Comment on above: Performed By: #### P SARAH #### [place] [address] [address] [place], [place] RBC (Bld) [#/Vol] 3.46 10*6/uL Low 3.80-5.20 [facility] Comment on above: Performed By: #### P SARAH #### [place] [address] [address] [place], [place] WBC (Bld) [#/Vol] 15.9 10*3/uL High 3.6-10.7 [facility] Comment on above: Performed By: #### P SARAH #### [place] [address] [address] [place], [place] Manual Diffon 01-26-2022 Abs Baso Cnt 0.2 10*3/uL Normal 0.0-0.2 [facility] Comment on above: Performed By: #### P SARAH #### [place] [address] [address] [place], [place] Abs Eosin Cnt 0.6 10*3/uL High 0.0-0.5 [facility] Comment on above: Performed By: #### P SARAH #### [place] [address] [address] [place], [place] Abs Lymph Cnt 1.9 10*3/uL Normal 1.1-4.5 [facility] Comment on above: Performed By: #### P SARAH #### [address] [place], [place] Abs Monocyte Cnt 1.4 10*3/uL High 0.2-1.1 [facility] Comment on above: Performed By: #### P SARAH #### [place] [address] [address] [place], [place] Abs Neutrophile Cnt 11.6 10*3/uL High 2.2-8.2 [facility] Comment on above: Performed By: #### P SARAH #### [facility] [address] [place], [place] Anisocytosis Slight Normal [facility] Comment on above: Performed By: #### P SARAH #### [facility] [address] [place], [place] Bands 1 % Normal 0-3 [facility] Comment on above: Performed By: #### P SARAH #### [facility] [address] [place], [place] Basophils 1 % Normal 0-2 [facility] Comment on above: Performed By: #### P SARAH #### [facility] [address], [place] Cells Slight Normal [facility] Comment on above: Performed By: #### P SARAH #### [facility] [address], [place] Cells counted 100 Normal [facility] Comment on above: Performed By: #### P SARAH #### [facility] [address], [place] Clumped Platelets see below Normal [facility] Comment on above: Result Comment: Plat elet clumping noted; this may be corrected by using Na Citrate. Performed By: #### P SARAH #### [facility] [address], [place] Eosinophils 4 % Normal 1-6 [facility] Comment on above: Performed By: #### P SARAH #### [facility] [address], [place] Hypochromia Slight Normal [facility] Comment on above: Performed By: #### P SARAH #### [place] [address], [place] Lymphocytes 12 % Low 20-40 [facility] Comment on above: Performed By: #### P SARAH #### [facility] [address], [place] Metamyelocytes 1 % Abnormal <1 [facility] Comment on above: Performed By: #### P SARAH #### [facility] [address], [place] Monocytes 9 % Normal 2-10 [facility] Comment on above: Performed By: #### P SARAH #### [facility] [address], [place] Ovalocytes Slight Normal [facility] Comment on above: Performed By: #### P SARAH #### [facility] [address], [place] RBC Morphology ABNORMAL Normal [facility] Comment on above: Performed By: #### P SARAH #### [facility] [address], [place] Seg Neutrophils 72 % Normal 40-80 [facility] Comment on above: Performed By: #### P SARAH #### [facility] [address], [place] Sodium, Ur Randomon 01-27-20 22 Sodium [Moles/Vol] 27 mmol/L Low 30-90 [facility] Comment on above: Performed By: #### S APCR #### [facility] [address], [place] XA Special Angiography Proce dureon 01-26-2022 XA Special Angiography Procedure Patient Name: SIOBHAN HAAS Special Procedures ACCESSION EXAM DATE/TIME PROCEDURE ORDERING PROVIDER [id number] 01/26/2022 15:54 EDT XA Special Angiography UNASSIGNED, UNASSIGNED Procedure Reason For Exam (XA Special Angiography Procedure) Temporary Central Line (Triple Lumen) Report CLINICAL INFORMATION: Left leg cellulitis. Central access required for antibiotics. Prior to the procedure, the details of the examination were explained to the patient. She understands the risks, alternative, and benefits and wishes to proceed. Informed written consent is obtained and placed in the chart. ANESTHESIA: Local anesthesia is maintained with Lidocaine. FLUOROSCOPY USED: None. The procedure was performed with the patient in her bed while in the Angio Suite. 0 minutes, 0 cine run(s), and 0 fluoro spot(s) captured. PROCEDURE: The right neck was prepped and draped in the usual fashion. All elements of sterile technique were applied: cap, mask, sterile gown, proper hand hygiene including sterile gloves, a large sterile sheet, and hospital-approved cutaneous antisepsis at the site. Using ultrasound guidance (with a sterile probe cover and sterile gel) and a micropuncture set, (an image was saved to confirm vein patency and needle placement), the right internal jugular vein was cannulated. A wire advanced without difficulty into the superior vena cava. The internal jugular vein tract was dilated. A 16 cm 7 [place] triple lumen catheter was inserted into position. The distal tip was placed in the superior vena cava. There were no immediate applications. The patient tolerated the procedure without difficulty and was transferred to the recovery room in stable condition. IMPRESSION: 1. Successful placement of a right-sided 7 [place] triple lumen central catheter as detailed above. The distal tip is in the superior vena cava. It is ready for use. Report Dictated on Workstation: [id number] Final Dictating Physician: MD BRENNER JEFFREY Signed Date and Time: 01/26/2022 4:13 pm Signed by: MD BRENNER JEFFREY Transcribed Date and Time: 01/26/2022 4:14 Normal [facility] C-Reactive Proteinon 022 CRP [Mass/Vol] 219.7 mg/L High 0.0-9.9 [facility] [employer] Comment on above: Result Comment: . Performed By: #### C ELISA #### [facility] [address] [place] [address] CULTURE AND STAIN - TISSUEon 01-25-2022 CULTURE AND STAIN - TISSUE CULTURE & STAIN - TISSUE --> Status: F No growth at 3 days. STAIN GRAM --> Status: F Rare polymorphonuclear cells/lpf. No organisms seen. No organisms seen. Normal [facility] [employer] [facility] Comment on above: Order Comment: ORDER WAS CANCELLED 01/24/22 20:38, Wrong test ordered. 01/24/2022 20:38. Performed By: #### C RUBEN C/REFUGIO ####[facility] [id number] [place] [address] Comp Metabolic Panelon 01-25 Calcium [Mass/Vol] 8.6 mg/dL Normal 8.4-10.4 [facility] Comment on above: Performed By: #### Shira PÉREZ #### [facility] [address], [place] ALP [Catalytic activity/Vol] 101 U/L Normal 38-126 [facility] Comment on above: Performed By: #### Shira PÉREZ #### [facility] [address] [facility], [place] ALT [Catalytic activity/Vol] 24 U/L Normal 0-34 [facility] Comment on above: Result Comment: The ALT test is performed by an updated assay method. Please note that the reference intervals have been changed and are now sex specific. Performed By: #### Shira PÉREZ #### [facility] [address], [place] Anion gap [Moles/Vol] 9 mmol/L Normal 3-13 [facility] Comment on above: Performed By: #### Shira PÉREZ #### [facility] [address], [place] AST [Catalytic activity/Vol] 33 U/L Normal 15-46 [facility] Comment on above: Performed By: #### Shira PÉREZ #### [facility] [address] [facility], [place] Bilirubin [Mass/Vol] 0.6 mg/dL Normal 0.2-1.3 [facility] Comment on above: Performed By: #### Shira PÉREZ #### [facility] [address], [place] CO2 [Moles/Vol] 19 mmol/L Low 22-30 [facility] Comment on above: Performed By: #### Shira PÉREZ #### [facility] [address] [facility], [place] Glucose [Mass/Vol] 181 mg/dL High 70-100 [facility] Comment on above: Performed By: #### Shira PÉREZ #### [facility] [address] [facility], [place] Protein [Mass/Vol] 6.6 g/dL Normal 6.3-8.2 [facility] Comment on above: Performed By: #### Shira PÉREZ #### [facility] [address], [place] Urea nitrogen [Mass/Vol] 24 mg/dL High 9-20 [facility] Comment on above: Performed By: #### C ELISA #### [facility] [address], [place] Creatinine [Mass/Vol] 1.70 mg/dL High 0.52-1.25 [facility] Comment on above: Performed By: #### C ELISA #### [facility] [address] [place] [address] GFR/1.73 sq M.predicted among blacks MDRD (S/P/Bld) [Vol rate/Area] 36.7 mL/min/{1.73_m2} Abnormal >60 [facility] Comment on above: Performed By: #### C ELISA #### [place] [address], [place] GFR/1.73 sq M.predicted among non-blacks MDRD (S/P/Bld) [Vol rate/Area] 31.7 mL/min/{1.73_m2} Abnormal >60 [facility] Comment on above: Result Comment: KDIG O guidelines provide the following GFR categories: Stage GFR(ml/min/1.73 m2) Terms G1 >=90 Normal or high G2 60-89 Mildly decreased* G3a 45-59 Mildly to moderately decreased G3b 30-44 Moderately to severely decreased G4 15-29 Severely decreased G5 <15 Kidney failure *Relative to young adult level. In the absence of evidence of kidney damage, neither GFR category G1 nor G2 fulfill the criteria for CKD. The CKD-EPI equation is validated in individuals 18 years of age and older. Currently the best equation for estimating glomerular filtration rate (GFR) from serum creatinine in children is the Bedside Bolton equation. It is less accurate in patients with extremes of muscle mass, restriction of dietary protein, ingestion of creatine, extra-renal metabolism of creatinine, or treatment with medications that affect renal tubular creatinine secretion. Performed By: #### C ELISA #### [facility] [address], [place] Albumin [Mass/Vol] 3.3 g/dL Low 3.5-5.0 [facility] Comment on above: Performed By: #### Shira PÉREZ #### [facility] [address], [place] Chloride [Moles/Vol] 108 mmol/L High 98-107 [facility] Comment on above: Performed By: #### C ELISA #### [facility] [address], [place] Potassium [Moles/Vol] 4.3 mmol/L Normal 3.5-5.1 [facility] Comment on above: Performed By: #### C ELISA #### [place] [address], [place] Sodium [Moles/Vol] 136 mmol/L Normal 135-145 [facility] Comment on above: Performed By: #### Shira PÉREZ #### [place] [address], [place] Hemogram w/ Autodiffon 01-25 Abs Baso Cnt 0.0 10*3/uL Normal 0.0-0.2 [facility] Comment on above: Performed By: #### Shira PÉREZ #### [place] [address], [place] Abs Neutrophile Cnt 13.3 10*3/uL High 1.8-7.0 [facility] Comment on above: Performed By: #### Shira PÉREZ #### [place] [address], [place] Basophils/100 WBC (Bld) 0.1 % Normal 0.0-2.0 [facility] Comment on above: Performed By: #### Shira PÉREZ #### [place] [address], [place] Eosinophils (Bld) [#/Vol] 0.0 10*3/uL Normal 0.0-0.5 [facility] Comment on above: Performed By: #### Shira PÉREZ #### [place] [address], [place] Eosinophils/100 WBC (Bld) 0.0 % Low 1.0-6.0 [facility] Comment on above: Performed By: #### Shira PÉREZ #### [facility] [address], [place] Erythrocyte distribution width (RBC) [Ratio] 15.3 % High 11.5-14.5 [facility] Comment on above: Performed By: #### Shira PÉREZ #### [facility] [address], [place] Granulocytes/100 WBC (Bld) 87.4 % High 40.0-80.0 [facility] Comment on above: Performed By: #### C ELISA #### [facility] [address], [place] Hematocrit (Bld) [Volume fraction] 30.2 % Low 35.0-47.0 [facility] Comment on above: Performed By: #### Shira PÉREZ #### [place] [address], [place] Hemoglobin (Bld) [Mass/Vol] 9.5 g/dL Low 11.7-16.0 [facility] Comment on above: Performed By: #### Shira PÉREZ #### [place] [address], [place] Lymphocytes (Bld) [#/Vol] 0.8 10*3/uL Low 1.0-4.3 [facility] Comment on above: Performed By: #### Shira PÉREZ #### [place] [address], [place] Lymphocytes/100 WBC (Bld) 5.2 % Low 20.0-40.0 [facility] Comment on above: Performed By: #### Shira PÉREZ #### [facility] [address], [place] MCH (RBC) [Entitic mass] 26.0 pg Normal 26.0-34.0 [facility] Comment on above: Performed By: #### Shira PÉREZ #### [place] [address], [place] MCHC 31.4 % Low 32.0-36.0 [facility] Comment on above: Performed By: #### Shira PÉREZ #### [facility] [address], [place] MCV (RBC) [Entitic vol] 83.0 fL Normal 79.0-98.0 [facility] Comment on above: Performed By: #### Shira PÉREZ #### [facility] [address], [place] Monocytes (Bld) [#/Vol] 1.1 10*3/uL High 0.0-0.8 [facility] Comment on above: Performed By: #### Shira PÉREZ #### [facility] [address], [place] Monocytes/100 WBC (Bld) 7.3 % Normal 2.0-10.0 [facility] Comment on above: Performed By: #### Shira PÉREZ #### [place] [address], [place] Platelet mean volume (Bld) [Entitic vol] 9.3 fL Normal 7.4-12.4 [facility] Comment on above: Result Comment: MPV is a calculated measurement using platelet volume ratio. Performed By: #### Shira PÉREZ #### [place] [address], [place] Platelets (Bld) [#/Vol] 228 10*3/uL Normal 140-440 [facility] Comment on above: Performed By: #### Shira PÉREZ #### [place] [address], [place] RBC (Bld) [#/Vol] 3.64 10*6/uL Low 3.80-5.20 [facility] Comment on above: Performed By: #### Shira PÉREZ #### [facility] [address], [place] WBC (Bld) [#/Vol] 15.3 10*3/uL High 3.6-10.7 [facility] Comment on above: Performed By: #### Shira PÉREZ #### [facility] [address], [place] Procalcitoninon 01-25-2022 Procalcitonin 1.77 ng/mL High 0.00-0.09 [facility] Comment on above: Performed By: #### C ELISA #### [facility] [address] [place] [address] Sed Rateon 01-25-2022 Sed Rate 95 mm/h High 0-20 [facility] Comment on above: Performed By: #### C ELISA #### [facility] [address] [facility] [place] C-Reactive Proteinon 022 CRP [Mass/Vol] 231.3 mg/L High 0.0-9.9 [facility] Comment on above: Result Comment: . Performed By: #### P T, CMP3, CRP2 ####[facility] [place] [address] Comp Metabolic Panelon 01-24 ALP [Catalytic activity/Vol] 128 U/L High 38-126 [facility] Comment on above: Performed By: #### P T, CMP3, CRP2 ####[address] [place] [address] ALT [Catalytic activity/Vol] 20 U/L Normal 0-34 [facility] Comment on above: Result Comment: The ALT test is performed by an updated assay method. Please note that the reference intervals have been changed and are now sex specific. Performed By: #### P T, CMP3, CRP2 ####[place] [address] [place] [address] Anion gap [Moles/Vol] 8 mmol/L Normal 3-13 [facility] Comment on above: Performed By: #### P T, CMP3, CRP2 ####[place] [address] [place] [address] AST [Catalytic activity/Vol] 36 U/L Normal 15-46 [facility] Comment on above: Performed By: #### P T, CMP3, CRP2 ####[place] [address] [place] [address] Calcium [Mass/Vol] 8.9 mg/dL Normal 8.4-10.4 [facility] Comment on above: Performed By: #### P T, CMP3, CRP2 ####[place] [address] [place] [address] CO2 [Moles/Vol] 18 mmol/L Low 22-30 [facility] Comment on above: Performed By: #### P T, CMP3, CRP2 ####[place] [address] [place] [address] Glucose [Mass/Vol] 111 mg/dL High 70-100 [facility] Comment on above: Performed By: #### P T, CMP3, CRP2 ####[place] [address] [place] [address] Protein [Mass/Vol] 6.9 g/dL Normal 6.3-8.2 [facility] Comment on above: Performed By: #### P T, CMP3, CRP2 ####[address] [place] [address] Urea nitrogen [Mass/Vol] 19 mg/dL Normal 9-20 [facility] Comment on above: Performed By: #### P T, CMP3, CRP2 ####[address] [place] [address] Bilirubin [Mass/Vol] 0.7 mg/dL Normal 0.2-1.3 [facility] Comment on above: Performed By: #### P T, CMP3, CRP2 ####[address] [place] [address] Creatinine [Mass/Vol] 0.97 mg/dL Normal 0.52-1.25 [facility] Comment on above: Performed By: #### P T, CMP3, CRP2 ####[place] [address] [place] [address] GFR/1.73 sq M.predicted among blacks MDRD (S/P/Bld) [Vol rate/Area] 72.3 mL/min/{1.73_m2} Normal >60 [facility] Comment on above: Performed By: #### P T, CMP3, CRP2 ####[place] [address] [place] [address] GFR/1.73 sq M.predicted among non-blacks MDRD (S/P/Bld) [Vol rate/Area] 62.4 mL/min/{1.73_m2} Normal >60 [facility] Comment on above: Result Comment: KDIG O guidelines provide the following GFR categories: Stage GFR(ml/min/1.73 m2) Terms G1 >=90 Normal or high G2 60-89 Mildly decreased* G3a 45-59 Mildly to moderately decreased G3b 30-44 Moderately to severely decreased G4 15-29 Severely decreased G5 <15 Kidney failure *Relative to young adult level. In the absence of evidence of kidney damage, neither GFR category G1 nor G2 fulfill the criteria for CKD. The CKD-EPI equation is validated in individuals 18 years of age and older. Currently the best equation for estimating glomerular filtration rate (GFR) from serum creatinine in children is the Bedside Bolton equation. It is less accurate in patients with extremes of muscle mass, restriction of dietary protein, ingestion of creatine, extra-renal metabolism of creatinine, or treatment with medications that affect renal tubular creatinine secretion. Performed By: #### P T, CMP3, CRP2 ####[place] [address] [place] [address] Potassium [Moles/Vol] 4.2 mmol/L Normal 3.5-5.1 [facility] Comment on above: Performed By: #### P T, CMP3, CRP2 ####[place] [address] [facility] [place] [address] Sodium [Moles/Vol] 134 mmol/L Low 135-145 [facility] Comment on above: Performed By: #### P T, CMP3, CRP2 ####[place] [address] [place] [facility] [address] Albumin [Mass/Vol] 3.4 g/dL Low 3.5-5.0 [facility] Comment on above: Performed By: #### P T, CMP3, CRP2 ####[place] [address] [place] [address] Chloride [Moles/Vol] 108 mmol/L High 98-107 [facility] Comment on above: Performed By: #### P T, CMP3, CRP2 ####[place] [address] [address] Hemogram w/ Autodiffon 01-24 Abs Baso Cnt 0.0 10*3/uL Normal 0.0-0.2 [facility] Comment on above: Performed By: #### E SR, HEMDF ####[facility] [place] [address] Abs Neutrophile Cnt 10.5 10*3/uL High 1.8-7.0 [facility] Comment on above: Performed By: #### E SR, HEMDF ####[place] [address] [place] [address] Basophils/100 WBC (Bld) 0.3 % Normal 0.0-2.0 [facility] Comment on above: Performed By: #### E SR, HEMDF ####[place] [address] [place] [address] Eosinophils (Bld) [#/Vol] 0.1 10*3/uL Normal 0.0-0.5 [facility] Comment on above: Performed By: #### E SR, HEMDF ####[place] [address] [place] [address] Eosinophils/100 WBC (Bld) 1.0 % Normal 1.0-6.0 [facility] Comment on above: Performed By: #### E SR, HEMDF ####[place] [address] [place] [address] Erythrocyte distribution width (RBC) [Ratio] 15.1 % High 11.5-14.5 [facility] Comment on above: Performed By: #### E SR, HEMDF ####[place] [address] [place] [address] Granulocytes/100 WBC (Bld) 77.9 % Normal 40.0-80.0 [facility] Comment on above: Performed By: #### E SR, HEMDF ####[place] [address] [place] [address] Hematocrit (Bld) [Volume fraction] 34.4 % Low 35.0-47.0 [facility] Comment on above: Performed By: #### E SR, HEMDF ####[place] [address] [place] [address] Hemoglobin (Bld) [Mass/Vol] 11.1 g/dL Low 11.7-16.0 [facility] Comment on above: Performed By: #### E SR, HEMDF ####[facility] [address] [place] [address] Lymphocytes (Bld) [#/Vol] 1.5 10*3/uL Normal 1.0-4.3 [facility] Comment on above: Performed By: #### E SR, HEMDF ####[facility] [place] [address] Lymphocytes/100 WBC (Bld) 11.3 % Low 20.0-40.0 [facility] Comment on above: Performed By: #### E SR, HEMDF ####[facility] [place] [address] MCH (RBC) [Entitic mass] 26.7 pg Normal 26.0-34.0 [facility] Comment on above: Performed By: #### E SR, HEMDF ####[facility] [place] [address] MCHC 32.2 % Normal 32.0-36.0 [facility] Comment on above: Performed By: #### E SR, HEMDF ####[facility] [place] [address] MCV (RBC) [Entitic vol] 83.1 fL Normal 79.0-98.0 [facility] Comment on above: Performed By: #### E SR, HEMDF ####[facility] [address] [place] [address] Monocytes (Bld) [#/Vol] 1.3 10*3/uL High 0.0-0.8 [facility] Comment on above: Performed By: #### E SR, HEMDF ####[facility] [address] [place] [address] Monocytes/100 WBC (Bld) 9.5 % Normal 2.0-10.0 [facility] Comment on above: Performed By: #### E SR, HEMDF ####[facility] [place] [address] Platelet mean volume (Bld) [Entitic vol] 9.5 fL Normal 7.4-10.4 [facility] Comment on above: Performed By: #### E SR, HEMDF ####[facility] [place] [address] Platelets (Bld) [#/Vol] 222 10*3/uL Normal 140-440 [facility] Comment on above: Performed By: #### E SR, HEMDF ####[facility] [place] [address] RBC (Bld) [#/Vol] 4.14 10*6/uL Normal 3.80-5.20 [facility] Comment on above: Performed By: #### E SR, HEMDF ####[facility] [place] [address] WBC (Bld) [#/Vol] 13.5 10*3/uL High 3.6-10.7 [facility] Comment on above: Performed By: #### E SR, HEMDF ####[place] [address] [place] [address] Op Noteon 01-24-2022 Op Note Operative Report Patient Name: Siobhan Haas Date of : 1960 Date of Surgery: 01/24/22 Pre-operative diagnosis: Left leg necrotizing fascitis Post-operative diagnosis: Same Procedure(s): Irrigation debridement skin subcutaneous tissue of the left lower extremity 13 cmx 7.5 cm Fasciotomy left lower extremity Left knee aspiration to be dictated separately by Dr. Colon Surgeon: Alyssa, (left knee aspiration Dr. Colon) Clothes Drier Assembler(s): Rudy Tang PA-C, PGY 6 Anesthesia: General EBL: 100 cc Complications: None Specimens: Tissue for culture swab for culture x2 Operative findings: Viable muscles and anterior lateral superficial and deep posterior compartments, no dinora purulence significant turbid fluid tracking proximally along medial lateral tongue History of present illness: Please see previous notes for history of present illness operative discussion Operative report: I met with Siobhan in [...] normal structures that can lead to long distance operator problems of pain or dysfunction, wound healing complications, and late or chronic pain as a result of the surgical intervention. In addition potentially life threatening complications that can occur at the time of surgery and after surgery were discussed including but not limited to deep vein thrombosis, pulmonary embolism, myocardial infarction, stroke and . I initialed her Left lower extremity and signed her consent form. Siobhan was then brought to the operating room and placed in the Supine position on the Operating Room table. Care was taken to identify and pad all bony prominences. A general anesthetic was then given by the anesthesia staff and an endotracheal tube was placed by the anesthesia staff. At all times during the operative procedure the patient's head neck and airway were protected by the anesthesia staff. A tourniquet was not utilized for the case. The Left lower extremity was then prepped and draped in the usual orthopedic sterile fashion. A surgical timeout was then performed with the patient's identification, the procedure to be performed being reviewed with the consent form, verification that the patient had received preoperative antibiotics, and verification of the correct surgical side. Everyone in the operating room stopped what they were doing in order to participate in the timeout. This timeout was performed by myself, the circulating room nurse and the anesthesia staff. The patient's ASA was verified by the nurse machine printer and the anesthesia staff. Fire risk was assessed. Left knee was aspirated through an area that was not affected by erythema or warmth by Dr. Colon to be aspirated separately. An incision was made along the posterior aspect of the erythema tracking from the anterior medial and posterior erythematous areas. I then placed my fingers along the fascial compartment of the lateral and medial and advanced where I felt easy separation of the subcutaneous tissue from the fascia. We then achieved hemostasis and continued our dissection proximally until there was good adherence the subcutaneous tissue to the deep fascia. I then turned my attention to the posterior aspect of my incision and continued it in a distal to proximal fashion again following any tracking tunnels of fluid. I debrided out the skin subcutaneous tissue that was nonviable or grossly infected utilizing sharp dissection. We then aggressively scrubbed the entire fascial compartment to ensure any nonadherent or nonviable tissue was debrided. I then made counterincisions proximally just posterior to the fibular head and along the posterior aspect of the medial head of the gastrocnemius. I then used these incisions to palpate in a 360 degree manner checking for any unidentified pockets of fluid. When identified I continued the dissection until I felt fascial adherence to the superficial subcutaneous tissue. I then began irrigating out all of the wounds utilizing 9 L of pulse lavage. I then made an incision along the medial head of the gastrocnemius continued this dissection antegrade to ensure release of the superficial and deep compartments of the posterior compartments. I then turned my attention to the anterior lateral compartments a longitudinal fascial incision was made the anterior compartment anterior to the intermuscular septum and continued longitudinally to encompass the lateral compartment. The muscles deep were then checked for viability they were pink and r (more content not included)... Normal [facility] Op Note [facility] [address] [facility] [address] Dept: [phone] Loc: [phone] Operative Report Patient Name: Siobhan Haas Date of : 1960 Date of Surgery: 01/24/22 Pre-operative diagnosis: Left lower extremity necrotizing fasciitis, left total knee arthroplasty concern for possible involvement Post-operative diagnosis: Same Procedure(s): Left knee aspiration Surgeon: Greer Colon M.D. Clothes Drier Assembler(s): None Anesthesia: General EBL: Minimal IVF: Crystalloid Medications: Scheduled Antibiotics Implants: None Clinical History/Indication for Surgery The patient is a 61 y.o. year old female who is being managed by Dr. Schaefer presented with left lower extremity necrotizing fasciitis. Urgent consultation regarding this leg was given to me due to the presence of a left total knee replacement. Dr. Schaefer and I both believed this needs to be assessed in order to ensure no concern for a septic TKA at this time. Two physician consent obtained today for the knee aspiration. Operative Narration The surgical site was identified and marked. Informed consent was not able to be obtained due to the urgency of her surgery and consultation. The patient was then brought to the operating room and placed supine on the operating table. Anesthesia was administered and care of the head, neck, and airway was maintained by the anesthesia staff throughout the entire procedure. All bony prominences were identified and padded. A surgical timeout was performed. Antibiotics were confirmed to have been given. After sterile alcohol prep, an 18g needle was used to aspirate, <1mL of bloody fluid from superolateral portal of the left knee. The patient tolerated the aspiration well. A band-aid was placed. Dr. Schaefer portion of the case started at this point. This operative report was prepared and signed by Greer Colon MD at 01/24/22, 4:16 PM Normal [facility] Procalcitoninon 01-24-2022 Interpretation See Below Normal [facility] Comment on above: Result Comment: PCT <0.50 = Low risk of severe sepsis and/or septic shock. PCT >2.00 = High risk of severe sepsis and/or septic shock. Performed By: #### C XAAN #### [facility] [address] [place], [place] Procalcitonin 1.04 ng/mL High 0.00-0.09 [facility] Comment on above: Performed By: #### P SARAH #### [facility] [address] [place], [place] Interpretation See Below Normal [facility] Comment on above: Result Comment: PCT <0.50 = Low risk of severe sepsis and/or septic shock. PCT >2.00 = High risk of severe sepsis and/or septic shock. Performed By: #### P SARAH #### [facility] [address] [place], [place] Prothrombin Timeon INR 1.1 Normal 0.9-1.1 [facility] Comment on above: Result Comment: Alexis mmended Anticoagulant Therapy: SEE BELOW ----- INR of 2.0 - 3.0 : - Prophylaxis of Venous Thrombosis (high-risk surgery) - Treatment of Venous Thrombosis - Treatment of Pulmonary Embolism (Includes tissue heart valves, Acute Myocardial Infarction to prevent systemic embolism, Valvular Heart Disease, and Atrial Fibrillation) ----- INR of 2.5 - 3.5 : - Mechanical Prosthetic Valves (high risk) - If oral anticoagulant therapy is used to prevent Myocardial Infarction Performed By: #### P T, CMP3, CRP2 ####[facility] [place] [address] PT Coag (PPP) [Time] 11.4 s Normal 9.0-12.0 [facility] Comment on above: Result Comment: . Performed By: #### P T, CMP3, CRP2 ####[facility] [place] [address] Sed Rateon 01-24-2022 Sed Rate 107 mm/h High 0-20 [facility] Comment on above: Performed By: #### E SR, HEMDF ####[facility] [place] [address] TS GELon 01-24-2022 TS GEL ABO Group: O Rh, Gel: POS Antibody Screen Gel: NEG Normal [facility] Comment on above: Performed By: #### T SGL ####[facility] Comp Panel with Mg Reflexon 01-23-2022 ALP [Catalytic activity/Vol] 103 U/L Normal 38-126 [facility] Comment on above: Performed By: #### P SARAH #### [facility] [address] [place], [place] ALT [Catalytic activity/Vol] 16 U/L Normal 0-34 [facility] Comment on above: Result Comment: The ALT test is performed by an updated assay method. Please note that the reference intervals have been changed and are now sex specific. Performed By: #### P SARAH #### [facility] [address] [place], [place] Anion gap [Moles/Vol] 4 mmol/L Normal 3-13 [facility] Comment on above: Performed By: #### P SARAH #### [facility] [address] [place], [place] AST [Catalytic activity/Vol] 37 U/L Normal 15-46 [facility] Comment on above: Performed By: #### P SARAH #### [facility] [address] [place], [place] Bilirubin [Mass/Vol] 0.5 mg/dL Normal 0.2-1.3 [facility] Comment on above: Performed By: #### P SARAH #### [facility] [address] [place], [place] Calcium [Mass/Vol] 8.8 mg/dL Normal 8.4-10.4 [facility] Comment on above: Performed By: #### P SARAH #### [facility] [address] [place], [place] CO2 [Moles/Vol] 25 mmol/L Normal 22-30 [facility] Comment on above: Performed By: #### P SARAH #### [facility] [address] [place], [place] Glucose [Mass/Vol] 95 mg/dL Normal 70-100 [facility] Comment on above: Performed By: #### P SARAH #### [facility] [address] [place], [place] Protein [Mass/Vol] 6.6 g/dL Normal 6.3-8.2 [facility] Comment on above: Performed By: #### P SARAH #### [place] [address] [place], [place] Urea nitrogen [Mass/Vol] 27 mg/dL High 9-20 [facility] Comment on above: Performed By: #### P SARAH #### [place] [address] [place], [place] Creatinine [Mass/Vol] 0.95 mg/dL Normal 0.52-1.25 [facility] Comment on above: Performed By: #### P SARAH #### [place] [address] [place], [place] GFR/1.73 sq M.predicted among blacks MDRD (S/P/Bld) [Vol rate/Area] 74.2 mL/min/{1.73_m2} Normal >60 [facility] Comment on above: Performed By: #### P SARAH #### [facility] [address] [place], [place] GFR/1.73 sq M.predicted among non-blacks MDRD (S/P/Bld) [Vol rate/Area] 64.0 mL/min/{1.73_m2} Normal >60 [facility] Comment on above: Result Comment: KDIG O guidelines provide the following GFR categories: Stage GFR(ml/min/1.73 m2) Terms G1 >=90 Normal or high G2 60-89 Mildly decreased* G3a 45-59 Mildly to moderately decreased G3b 30-44 Moderately to severely decreased G4 15-29 Severely decreased G5 <15 Kidney failure *Relative to young adult level. In the absence of evidence of kidney damage, neither GFR category G1 nor G2 fulfill the criteria for CKD. The CKD-EPI equation is validated in individuals 18 years of age and older. Currently the best equation for estimating glomerular filtration rate (GFR) from serum creatinine in children is the Bedside Bolton equation. It is less accurate in patients with extremes of muscle mass, restriction of dietary protein, ingestion of creatine, extra-renal metabolism of creatinine, or treatment with medications that affect renal tubular creatinine secretion. Performed By: #### P SARAH #### [address] Albumin [Mass/Vol] 3.1 g/dL Low 3.5-5.0 [facility] Comment on above: Performed By: #### P SARAH #### [address] Chloride [Moles/Vol] 104 mmol/L Normal 98-107 [facility] Comment on above: Performed By: #### P SARAH #### [address] Potassium [Moles/Vol] 4.3 mmol/L Normal 3.5-5.1 [facility] Comment on above: Performed By: #### P SARAH #### [address] Sodium [Moles/Vol] 132 mmol/L Low 135-145 [facility] Comment on above: Performed By: #### P SARAH #### [address] Hemogram w/ Autodiffon 01-23 Abs Baso Cnt 0.0 10*3/uL Normal 0.0-0.2 [facility] Comment on above: Performed By: #### P SARAH #### [address] Abs Neutrophile Cnt 10.5 10*3/uL High 1.8-7.0 [facility] Comment on above: Performed By: #### P SARAH #### [address] Basophils/100 WBC (Bld) 0.3 % Normal 0.0-2.0 [facility] Comment on above: Performed By: #### P SARAH #### [facility] [address] [place], [place] Eosinophils (Bld) [#/Vol] 0.1 10*3/uL Normal 0.0-0.5 [facility] Comment on above: Performed By: #### P SARAH #### [facility] [address] [place], [place] Eosinophils/100 WBC (Bld) 0.9 % Low 1.0-6.0 [facility] Comment on above: Performed By: #### P SARAH #### [place] [address] [place], [place] Erythrocyte distribution width (RBC) [Ratio] 14.9 % High 11.5-14.5 [facility] Comment on above: Performed By: #### P SARAH #### [place] [address] [place], [place] Granulocytes/100 WBC (Bld) 82.8 % High 40.0-80.0 [facility] Comment on above: Performed By: #### P SARAH #### [place] [address] [place], [place] Hematocrit (Bld) [Volume fraction] 34.7 % Low 35.0-47.0 [facility] Comment on above: Performed By: #### P SARAH #### [place] [address] [place], [place] Hemoglobin (Bld) [Mass/Vol] 11.1 g/dL Low 11.7-16.0 [facility] Comment on above: Performed By: #### P SARAH #### [place] [address] [place], [place] Lymphocytes (Bld) [#/Vol] 1.0 10*3/uL Normal 1.0-4.3 [facility] Comment on above: Performed By: #### P SARAH #### [place] [address] [place], [place] Lymphocytes/100 WBC (Bld) 7.7 % Low 20.0-40.0 [facility] Comment on above: Performed By: #### P SARAH #### [facility] [address] [place], [place] MCH (RBC) [Entitic mass] 26.3 pg Normal 26.0-34.0 [facility] Comment on above: Performed By: #### P SARAH #### [facility] [address] [place], [place] MCHC 31.9 % Low 32.0-36.0 [facility] Comment on above: Performed By: #### P SARAH #### [facility] [address] [place], [place] MCV (RBC) [Entitic vol] 82.5 fL Normal 79.0-98.0 [facility] Comment on above: Performed By: #### P SARAH #### [place] [address] [place], [place] Monocytes (Bld) [#/Vol] 1.1 10*3/uL High 0.0-0.8 [facility] Comment on above: Performed By: #### P SARAH #### [facility] [address] [place], [place] Monocytes/100 WBC (Bld) 8.3 % Normal 2.0-10.0 [facility] Comment on above: Performed By: #### P SARAH #### [facility] [address] [place], [place] Platelet mean volume (Bld) [Entitic vol] 9.6 fL Normal 7.4-10.4 [facility] Comment on above: Performed By: #### P SARAH #### [facility] [address] [place], [place] Platelets (Bld) [#/Vol] 214 10*3/uL Normal 140-440 [facility] Comment on above: Performed By: #### P SARAH #### [facility] [address] [place], [place] RBC (Bld) [#/Vol] 4.21 10*6/uL Normal 3.80-5.20 [facility] Comment on above: Performed By: #### P SARAH #### [facility] [address] [place] [address] WBC (Bld) [#/Vol] 12.7 10*3/uL High 3.6-10.7 [facility] Comment on above: Performed By: #### P SARAH #### [facility] [facility] [address] [place] [address] Vancomycin Troughon 01-24-20 22 Vancomycin Trough 13.9 ug/mL Low 15.0-20.0 [facility] Comment on above: Result Comment: . Performed By: #### V ANCT ####[facility] ([place] [id number] [place] [address] Vancomycin Trough 15.5 ug/mL Normal 15.0-20.0 [facility] Comment on above: Result Comment: . Performed By: #### V ANCT #### [facility] [facility] [address] [place] [address] C-Reactive Proteinon 022 CRP [Mass/Vol] 82.5 mg/L High 0.0-9.9 [facility] Comment on above: Result Comment: . Performed By: #### L ACT3, CRP2, ESR ####[facility] ([place] [id number] [place] [address]#### PCAL ####[facility] ([facility] [facility] [id number] [place] [address] COVID and Resp PCR Panelon 0 01-22-2022 SARS-CoV-2 (COVID-19) RNA NICHOLE+probe Ql (Unsp spec) COVID and Resp PCR Panel --> Status: F POSITIVE: Human Rhinovirus/Enterovirus DETECTED. _ Expected Result: Not Detected The [place] Upper Respiratory Pathogens PCR Panel can detect the following targets: SARS-CoV-2, Adenovirus, Coronavirus 229E, Coronavirus HKU1, Coronavirus NL63, Coronavirus OC43, Human Metapneumovirus, Human Rhinovirus/Enterovirus, Influenza A, Influenza B, Parainfluenza Virus 1, Parainfluenza Virus 2, Parainfluenza Virus 3, Parainfluenza Virus 4, Respiratory Syncytial Virus, Bordetella pertussis, Bordetella parapertussis, Chlamydia pneumoniae, Mycoplasma pneumoniae. Method: Real-time PCR. _ Expected Result: Not Detected The [place] Upper Respiratory Pathogens PCR Panel can detect the following targets: SARS-CoV-2, Adenovirus, Coronavirus 229E, Coronavirus HKU1, Coronavirus NL63, Coronavirus OC43, Human Metapneumovirus, Human Rhinovirus/Enterovirus, Influenza A, Influenza B, Parainfluenza Virus 1, Parainfluenza Virus 2, Parainfluenza Virus 3, Parainfluenza Virus 4, Respiratory Syncytial Virus, Bordetella pertussis, Bordetella parapertussis, Chlamydia pneumoniae, Mycoplasma pneumoniae. Method: Real-time PCR. Abnormal [facility] Comment on above: Performed By: #### B FRP2 ####[facility] [place] [address] Comp Panel with Mg Reflexon 01-22-2022 ALP [Catalytic activity/Vol] 92 U/L Normal 38-126 [facility] Comment on above: Performed By: #### L ACT3, HEMDF, CMP3M ####[facility] [place] [address] ALT [Catalytic activity/Vol] 17 U/L Normal 0-34 [facility] Comment on above: Result Comment: The ALT test is performed by an updated assay method. Please note that the reference intervals have been changed and are now sex specific. Performed By: #### L ACT3, HEMDF, CMP3M ####[facility] [place] [address] Anion gap [Moles/Vol] 6 mmol/L Normal 3-13 [facility] Comment on above: Performed By: #### L ACT3, HEMDF, CMP3M ####[facility] [place] [address] AST [Catalytic activity/Vol] 45 U/L Normal 15-46 [facility] Comment on above: Performed By: #### L ACT3, HEMDF, CMP3M ####[facility] [place] [facility] [place] [address] Bilirubin [Mass/Vol] 0.4 mg/dL Normal 0.2-1.3 [facility] Comment on above: Performed By: #### L ACT3, HEMDF, CMP3M ####[facility] [place] [address] Calcium [Mass/Vol] 8.7 mg/dL Normal 8.4-10.4 [facility] Comment on above: Performed By: #### L ACT3, HEMDF, CMP3M ####[facility] ([facility] [facility] [id number] [place] [address] CO2 [Moles/Vol] 25 mmol/L Normal 22-30 [facility] Comment on above: Performed By: #### L ACT3, HEMDF, CMP3M ####[facility] ([place] [facility] [id number] [place] [address] Glucose [Mass/Vol] 123 mg/dL High 70-100 [facility] Comment on above: Performed By: #### L ACT3, HEMDF, CMP3M ####[facility] [place] [address] Protein [Mass/Vol] 6.6 g/dL Normal 6.3-8.2 [facility] Comment on above: Performed By: #### L ACT3, HEMDF, CMP3M ####[facility] [facility] [id number] [place] [address] Urea nitrogen [Mass/Vol] 27 mg/dL High 9-20 [facility] Comment on above: Performed By: #### L ACT3, HEMDF, CMP3M ####[facility] ([place] [facility] [id number] [place] [address] Creatinine [Mass/Vol] 1.05 mg/dL Normal 0.52-1.25 [facility] Comment on above: Performed By: #### L ACT3, HEMDF, CMP3M ####[facility] ([place] [facility] [id number] [place] [address] GFR/1.73 sq M.predicted among blacks MDRD (S/P/Bld) [Vol rate/Area] 65.7 mL/min/{1.73_m2} Normal >60 [facility] Comment on above: Performed By: #### L ACT3, HEMDF, CMP3M ####[place] [address] [place] [place] [address] GFR/1.73 sq M.predicted among non-blacks MDRD (S/P/Bld) [Vol rate/Area] 56.7 mL/min/{1.73_m2} Abnormal >60 [facility] Comment on above: Result Comment: KDIG O guidelines provide the following GFR categories: Stage GFR(ml/min/1.73 m2) Terms G1 >=90 Normal or high G2 60-89 Mildly decreased* G3a 45-59 Mildly to moderately decreased G3b 30-44 Moderately to severely decreased G4 15-29 Severely decreased G5 <15 Kidney failure *Relative to young adult level. In the absence of evidence of kidney damage, neither GFR category G1 nor G2 fulfill the criteria for CKD. The CKD-EPI equation is validated in individuals 18 years of age and older. Currently the best equation for estimating glomerular filtration rate (GFR) from serum creatinine in children is the Bedside Bolton equation. It is less accurate in patients with extremes of muscle mass, restriction of dietary protein, ingestion of creatine, extra-renal metabolism of creatinine, or treatment with medications that affect renal tubular creatinine secretion. Performed By: #### L ACT3, HEMDF, CMP3M ####[place] [address] [place] [address] Albumin [Mass/Vol] 3.3 g/dL Low 3.5-5.0 [facility] Comment on above: Performed By: #### L ACT3, HEMDF, CMP3M ####[place] [address] [place] [facility] [place] [address] Chloride [Moles/Vol] 104 mmol/L Normal 98-107 [facility] Comment on above: Performed By: #### L ACT3, HEMDF, CMP3M ####[place] [address] [place] [address] Potassium [Moles/Vol] 3.6 mmol/L Normal 3.5-5.1 [facility] Comment on above: Performed By: #### L ACT3, HEMDF, CMP3M ####[place] [address] [facility] [place] [address] Sodium [Moles/Vol] 134 mmol/L Low 135-145 [facility] Comment on above: Performed By: #### L ACT3, HEMDF, CMP3M ####[facility] [place] [address] Hemogram w/ Autodiffon 01-22 Abs Baso Cnt 0.0 10*3/uL Normal 0.0-0.2 [facility] Comment on above: Performed By: #### L ACT3, HEMDF, CMP3M ####[facility] [place] [address] Abs Neutrophile Cnt 14.5 10*3/uL High 1.8-7.0 [facility] Comment on above: Performed By: #### L ACT3, HEMDF, CMP3M ####[place] [address] [place] [address] Basophils/100 WBC (Bld) 0.2 % Normal 0.0-2.0 [facility] Comment on above: Performed By: #### L ACT3, HEMDF, CMP3M ####[address] [place] [address] Eosinophils (Bld) [#/Vol] 0.0 10*3/uL Normal 0.0-0.5 [facility] Comment on above: Performed By: #### L ACT3, HEMDF, CMP3M ####[place] [address] [place] [address] Eosinophils/100 WBC (Bld) 0.0 % Low 1.0-6.0 [facility] Comment on above: Performed By: #### L ACT3, HEMDF, CMP3M ####[place] [address] [place] [address] Erythrocyte distribution width (RBC) [Ratio] 14.9 % High 11.5-14.5 [facility] Comment on above: Performed By: #### L ACT3, HEMDF, CMP3M ####[facility] [place] [address] Granulocytes/100 WBC (Bld) 93.9 % High 40.0-80.0 [facility] Comment on above: Performed By: #### L ACT3, HEMDF, CMP3M ####[facility] [place] [address] Hematocrit (Bld) [Volume fraction] 34.4 % Low 35.0-47.0 [facility] Comment on above: Performed By: #### L ACT3, HEMDF, CMP3M ####[facility] [place] [address] Hemoglobin (Bld) [Mass/Vol] 11.1 g/dL Low 11.7-16.0 [facility] Comment on above: Performed By: #### L ACT3, HEMDF, CMP3M ####[facility] [place] [address] Lymphocytes (Bld) [#/Vol] 0.5 10*3/uL Low 1.0-4.3 [facility] Comment on above: Performed By: #### L ACT3, HEMDF, CMP3M ####[place] [address] [place] [address] Lymphocytes/100 WBC (Bld) 3.0 % Low 20.0-40.0 [facility] Comment on above: Performed By: #### L ACT3, HEMDF, CMP3M ####[facility] [place] [address] MCH (RBC) [Entitic mass] 26.3 pg Normal 26.0-34.0 [facility] Comment on above: Performed By: #### L ACT3, HEMDF, CMP3M ####[place] [address] [place] [address] MCHC 32.1 % Normal 32.0-36.0 [facility] Comment on above: Performed By: #### L ACT3, HEMDF, CMP3M ####[place] [address] [place] [address] MCV (RBC) [Entitic vol] 81.8 fL Normal 79.0-98.0 [facility] Comment on above: Performed By: #### L ACT3, HEMDF, CMP3M ####[place] [address] [place] [address] Monocytes (Bld) [#/Vol] 0.4 10*3/uL Normal 0.0-0.8 [facility] Comment on above: Performed By: #### L ACT3, HEMDF, CMP3M ####[facility] [place] [address] Monocytes/100 WBC (Bld) 2.9 % Normal 2.0-10.0 [facility] Comment on above: Performed By: #### L ACT3, HEMDF, CMP3M ####[facility] [place] [address] Platelet mean volume (Bld) [Entitic vol] 8.9 fL Normal 7.4-10.4 [facility] Comment on above: Performed By: #### L ACT3, HEMDF, CMP3M ####[facility] [facility] [place] [address] Platelets (Bld) [#/Vol] 203 10*3/uL Normal 140-440 [facility] Comment on above: Performed By: #### L ACT3, HEMDF, CMP3M ####[address] [place] [address] RBC (Bld) [#/Vol] 4.21 10*6/uL Normal 3.80-5.20 [facility] Comment on above: Performed By: #### L ACT3, HEMDF, CMP3M ####[facility] [facility] [place] [address] WBC (Bld) [#/Vol] 15.5 10*3/uL High 3.6-10.7 [facility] Comment on above: Performed By: #### L ACT3, HEMDF, CMP3M ####[facility] [facility] [place] [address] Lactic Acidon 01-22-2022 Lactate [Moles/Vol] 0.9 mmol/L Normal 0.7-2.0 [facility] Comment on above: Performed By: #### L ACT3, HEMDF, CMP3M ####[facility] [facility] [facility] [address] [place] [address] Lactate [Moles/Vol] 1.6 mmol/L Normal 0.7-2.0 [facility] Comment on above: Performed By: #### L ACT3, CRP2, ESR ####[facility] [facility] [place] [address]#### PCAL ####[place] [address] [place], [place] Procalcitoninon 01-22-2022 Procalcitonin 5.70 ng/mL High 0.00-0.09 [facility] Comment on above: Performed By: #### L ACT3, CRP2, ESR ####[facility] [facility] [place] [address]#### PCAL ####[place] [address] [place], [place] STAIN GRAMon 01-22-2022 STAIN GRAM STAIN GRAM --> Statu s: F Many polymorphonuclear cells/lpf. No organisms seen. No organisms seen. Normal [facility] Comment on above: Performed By: #### C /REFUGIO, S/GRM ####[address] [place], [place] #### CS/BA ####[place] [address] [place] [address] [place] [address] [place], [place] Sed Rateon 01-22-2022 Sed Rate 85 mm/h High 0-20 [facility] Comment on above: Performed By: #### L ACT3, CRP2, ESR ####[address] [place] [address]#### PCAL ####[place] [address] [place], [place] Staph Aureus Complete Nasalo n 01-22-2022 Staph Aureus Complete Nasal Staph Screen --> Status: F No S. aureus detected. Negative nasal MRSA PCR has a high negative predictive value for MRSA pneumonia. Consider stopping vancomycin if no other clinical indication. Contact Antimicrobial Stewardship for further recommendations. The analytical performance characteristics of this assay have been determined by [facility] in accordance with CLIA regulations. The modifications have not been cleared or approved by the U. S. Food and Drug Administration; however, the FDA has determined that such clearance or approval is not necessary. Negative nasal MRSA PCR has a high negative predictive value for MRSA pneumonia. Consider stopping vancomycin if no other clinical indication. Contact Antimicrobial Stewardship for further recommendations. The analytical performance characteristics of this assay have been [facility] in accordance with CLIA regulations. The modifications have not been cleared or approved by the U. S. Food and Drug Administration; however, the FDA has determined that such clearance or approval is not necessary. Normal [facility] Comment on above: Performed By: #### S APCR #### [facility] [address] [place] [id number] VL Venous Duplex US Lower Ex t Lefton 01-22-2022 VL Venous Duplex US Lower Ext Left Patient Name: SIOBHAN HAAS Ultrasound ACCESSION EXAM DATE/TIME PROCEDURE ORDERING PROVIDER [id number] 01/22/2022 09:25 EDT VL Venous Duplex US [id number] -JULIANNA BROWN Lower Ext Left CPT code 92862 Reason For Exam (VL Venous Duplex US Lower Ext Left) left lower extremity pain redness edema Report [facility] Left Lower Extremity Venous Duplex Report Patient Waldo, : 1960 Study 01/22/2022 Name: Siobhan Cochran (61yrs) Date: Patient [id number] Age: 61 Account: [id number] ID: Gender: F Loc: [id number] BP: Ordering Physician: Julianna Brown Field Identification Specialist: Kaitlyn Arauz RDMS, RVT Interpreting Physician: Keanu Gill M.D. Location: [facility] Indications: Pain edema rubor of the left lower leg. 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 There is no evidence of acute deep or superficial venous thrombosis noted in the left lower extremity. 2. The right common femoral vein fully compresses and demonstrates normal venous flow. 3. Limited study below knee History: Risk factors: Obese. Hypercoagulable state. Immobility. Age over 50 years. Study data: Left lower extremity venous duplex evaluation. Grayscale 2D imaging, color Doppler imaging, and spectral Doppler analysis. Ultrasound Report Location: Vascular laboratory. Objective: Diagnostic evaluation. Procedure: A vascular evaluation was performed with the patient in the supine position. Images were obtained using a Manga Cortas vascular ultrasound machine. Venous flow and imaging: + +--------- -----+ + + +Location +Overall +Properties +Comments + + +--------- -----+ + + +L CFV +Patent +Normal phasicity; + + + + +spontaneous; normal + + + + +augmentation; + + + + +compressible + + + +--------- -----+ + + +L saphenofemoral+Patent +Compressible + + +junction + + + + + +--------- -----+ + + +L profunda +Patent + +----- + +femoral + + + + + +--------- -----+ + + +L FV - prox. +Patent +Compressible + + + +--------- -----+ + + +L FV - mid +Patent +Normal phasicity; + + + + +spontaneous; normal + + + + +augmentation; + + + + +compressible + + + +--------- -----+ + + +L FV - distal +Patent +Compressible + + + +--------- -----+ + + +L popliteal +Patent +Normal phasicity; + + + + +spontaneous; normal + + + + +augmentation; + + + + +compressible + + + +--------- -----+ + + +L gastrocnemius +Patent +Compressible + + + +--------- -----+ + + +L PTV +Not visualized+ ----+Pain, edema, + + + + +body habitus. + + +--------- -----+ + + +L peroneal +Patent +Compressible + + + +--------- -----+ + + +L soleal +Patent +Compressible + + + +--------- -----+ + + +L GSV +Patent +Compressible + + + +--------- -----+ + + +R CFV +Patent +Normal phasicity; + + + + +spontaneous; normal + + + + +augmentation; + + + + +compressible + + + +--------- -----+ + + Prepared and electronically signed by Keanu Gill M.D. Ultrasound Report 01/22/2022 12:40 Final Dictated: 01/22/2022 12:40 pm Dictating Physician: KEANU GILL Signed Date and Time: 01/22/2022 12:40 pm Signed by: KEANU GILL Cardiovascular ACCESSION EXAM DATE/TIME PROCEDURE [id number] 01/22/2022 09:25 EDT VL Venous Duplex US Lower Ext Left CPT code 97136 Reason For Exam (VL Venous Duplex US Lower Ext Left) left lower extremity pain redness edema Report [facility] (more content not included)... Normal [facility] Absolute lymphocyte counton 01-21-2022 Lymphocytes Auto (Unsp spec) [#/Vol] 0.74 10*3/uL 0.83-4.51 [facility] Work Phone: Amorphous sediment detection in urine sediment by light microscopyon 01-21-2022 Amorphous sediment LM Ql (Urine sed) 2+ [facility] Work Phone: Basophil percentageon 2021 Basophil percentage 0-5 SEEN /hpf [facility] Work Phone: Basophils/100 WBC (Bld) 0.3 % 0-1 [facility] Work Phone: Bilirubin [Mass/Vol] 0.50 mg/dL 0.20-1.00 [facility] Work Phone: Comment on above: For patients on eltr ombopag therapy, use of Dimension Liberal TBIL is not recommended. Chloride [Moles/Vol] 103 mmol/L 98-107 [facility] Work Phone: Eosinophils/100 WBC (Bld) 0.3 % 0-5 [facility] Work Phone: Glucose [Mass/Vol] 141 mg/dL 74-106 [facility] Work Phone: [phone] Comment on above: Fasting Glucose resu lt greater than or equal to 126 mg/dL suggests DIABETES MELLITUS per A.D.A. criteria. Lactate [Moles/Vol] 1.5 mmol/L 0.4-2.0 [facility] Work Phone: Neutrophils (Bld) [#/Vol] 22.4 10*3/uL 2.0-7.7 [facility] Work Phone: Neutrophils/100 WBC (Bld) 91.4 % 47-70 [facility] Work Phone: Potassium [Moles/Vol] 3.2 mmol/L 3.5-5.1 [facility] Work Phone: Protein [Mass/Vol] 8.0 g/dL 6.4-8.2 [facility] Work Phone: [phone] Sodium [Moles/Vol] 135 mmol/L 136-145 [facility] Work Phone: WBC (Bld) [#/Vol] 24.5 10*3/uL 4.4-11.0 [facility] Work Phone: Bilirubin Test strip Ql (U)o n 01-21-2022 Bilirubin Ql (U) Negative Negative [facility] Work Phone: Blood erythrocytes count (nu mber/volume)on 01-21-2022 RBC (Bld) [#/Vol] 4.86 10*6/uL 4.2-5.4 [facility] Work Phone: Blood hemoglobin measurement (mass/volume)on 01-21-2022 Hemoglobin (Bld) [Mass/Vol] 13.0 g/dL 12.0-15.0 [facility] Work Phone: Blood lymphocytes/100 leukoc yteson 01-21-2022 Lymphocytes/100 WBC (Bld) 3.0 % 19-41 [facility] Work Phone: Blood monocytes/100 leukocyt eson 01-21-2022 Monocytes/100 WBC (Bld) 4.1 % 0-10 [facility] Work Phone: Blood platelet mean volumeon 01-21-2022 Platelet mean volume (Bld) [Entitic vol] 10.7 fL 6.2-12.0 [facility] Work Phone: Blood polychromasia detectio n by light microscopyon 01-21-2022 Polychromasia LM Ql (Bld) 1+ [facility] Work Phone: CT Low Ext w/o Contrast Left on 01-21-2022 CT Low Ext w/o Contrast Left Patient Name: SIOBHAN HAAS Computed Tomography ACCESSION EXAM DATE/TIME PROCEDURE ORDERING PROVIDER [id number] 01/21/2022 21:[address] Low Ext w/o Contrast COL[place] PINTO Left CPT code 21444 Reason For Exam (CT Low Ext w/o Contrast Left) left leg only, recent surgery, fever, pain left ankle Report CT of the left lower extremity without intravenous contrast, 01/21/2022. Reason for examination: Pain. Recent skin graft. Cellulitis and fever. COMPARISON: None available. TECHNIQUE: 1 mm axial images were obtained from the distal femur through the left ankle. No intravenous contrast was administered. Coronal and sagittal reconstructions were created and reviewed. FINDINGS: There are are inflammatory changes with a soft tissue defect laterally at the level of the left ankle, extending through the soft tissues to the cortical surface of the distal fibula posteriorly and laterally. Findings are presumably secondary to prior surgery. Small amounts of soft tissue gas are noted in the area. No definite discrete abscess or other fluid collection is noted. Evaluation is somewhat limited. No fracture is noted. There is osteopenia. No destructive osseous process is noted. There is a left knee arthroplasty. There may be a small knee joint effusion. IMPRESSION: Inflammatory changes with soft tissue defect laterally at the level of the left ankle as described. No definite acute osseous abnormality noted. Report Dictated on Final Dictating Physician: MD WYATT JOE M Signed Date and Time: 01/21/2022 10:09 pm Signed by: MD WYATT JOE M Transcribed Date and Time: 01/21/2022 10:10 Normal [facility] Comp Metabolic Panelon 01-21 Calcium [Mass/Vol] 8.7 mg/dL Normal 8.4-10.4 [facility] Comment on above: Performed By: #### Shira PÉREZ #### [facility] [address] [place], [place] ALP [Catalytic activity/Vol] 96 U/L Normal 38-126 [facility] Comment on above: Performed By: #### C ELISA #### [place] [address] [address] [place], [place] ALT [Catalytic activity/Vol] 15 U/L Normal 0-34 [facility] Comment on above: Result Comment: The ALT test is performed by an updated assay method. Please note that the reference intervals have been changed and are now sex specific. Performed By: #### Shira PÉREZ #### [facility] [address] [place], [place] Anion gap [Moles/Vol] 9 mmol/L Normal 3-13 [facility] Comment on above: Performed By: #### Shira PÉREZ #### [facility] [address] [place], [place] AST [Catalytic activity/Vol] 36 U/L Normal 15-46 [facility] Comment on above: Performed By: #### Shira PÉREZ #### [place] [address] [address] [place], [place] Bilirubin [Mass/Vol] 0.7 mg/dL Normal 0.2-1.3 [facility] Comment on above: Performed By: #### Shira PÉREZ #### [place] [address] [address] [place], [place] CO2 [Moles/Vol] 25 mmol/L Normal 22-30 [facility] Comment on above: Performed By: #### Shira PÉREZ #### [place] [address] [address] [place], [place] Creatinine [Mass/Vol] 1.23 mg/dL Normal 0.52-1.25 [facility] Comment on above: Performed By: #### C ELISA #### [facility] [address] [place] [id number] GFR/1.73 sq M.predicted among blacks MDRD (S/P/Bld) [Vol rate/Area] 54.3 mL/min/{1.73_m2} Abnormal >60 [facility] Comment on above: Performed By: #### C ELISA #### [facility] [address] [place], [place] GFR/1.73 sq M.predicted among non-blacks MDRD (S/P/Bld) [Vol rate/Area] 46.8 mL/min/{1.73_m2} Abnormal >60 [facility] Comment on above: Result Comment: KDIG O guidelines provide the following GFR categories: Stage GFR(ml/min/1.73 m2) Terms G1 >=90 Normal or high G2 60-89 Mildly decreased* G3a 45-59 Mildly to moderately decreased G3b 30-44 Moderately to severely decreased G4 15-29 Severely decreased G5 <15 Kidney failure *Relative to young adult level. In the absence of evidence of kidney damage, neither GFR category G1 nor G2 fulfill the criteria for CKD. The CKD-EPI equation is validated in individuals 18 years of age and older. Currently the best equation for estimating glomerular filtration rate (GFR) from serum creatinine in children is the Bedside Bolton equation. It is less accurate in patients with extremes of muscle mass, restriction of dietary protein, ingestion of creatine, extra-renal metabolism of creatinine, or treatment with medications that affect renal tubular creatinine secretion. Performed By: #### C ELISA #### [facility] [address] [place], [place] Glucose [Mass/Vol] 133 mg/dL High 70-100 [facility] Comment on above: Performed By: #### C ELISA #### [place] [address] [place], [place] Protein [Mass/Vol] 7.1 g/dL Normal 6.3-8.2 [facility] Comment on above: Performed By: #### C ELISA #### [address] Urea nitrogen [Mass/Vol] 23 mg/dL High 9-20 [facility] Comment on above: Performed By: #### C ELISA #### [facility] [address] [place], [place] Albumin [Mass/Vol] 3.7 g/dL Normal 3.5-5.0 [facility] Comment on above: Performed By: #### C ELISA #### [facility] [address] [place], [place] Potassium [Moles/Vol] 3.4 mmol/L Low 3.5-5.1 [facility] Comment on above: Performed By: #### C ELISA #### [facility] [address] [place], [place] Sodium [Moles/Vol] 137 mmol/L Normal 135-145 [facility] Comment on above: Performed By: #### C ELISA #### [facility] [address] [place], [place] Chloride [Moles/Vol] 103 mmol/L Normal 98-107 [facility] Comment on above: Performed By: #### C ELISA #### [facility] [address] [place], [place] Determination of erythrocyte mean corpuscular volume (MCV)on 01-21-2022 MCV (RBC) [Entitic vol] 83.1 fL 81-99 [facility] Work Phone: ED Provider Noteon 2 ED Provider Note [facility] EMERGENCY DEPARTMENT ENCOUNTER Pt Name: Siobhan Haas Birthdate 1960 Date of evaluation: 01/21/2022 Provider: Gary Jain MD CHIEF COMPLAINT No chief complaint on file. HISTORY OF PRESENT ILLNESS (Location/Symptom, Timing/Onset, Context/Setting, Quality, Duration, Modifying Factors, Severity) Note limiting factors. I wore a [employer] Personal Protective Equipment. HPI Siobhan Haas is a 61 y.o. female who presents to the emergency department with left leg cellulitis and sepsis. Patient underwent a skin graft to a chronic wound 10 days ago. Seem to be doing okay until the past 24 hours when she developed fever as high as 104, redness and pain from the skin graft site left lateral malleolus all the way up to the knee, delirium, and increased pain. She presented to [place] ED. I reviewed the paperwork. She had a white blood cell count of 24.5 thousand, normal lactic acid, and received IV clindamycin and IV Zosyn. X-ray of the leg was negative for soft tissue gas, chest x-ray was negative. It is unclear to me how much IV fluid she received. Her surgery was done here at [place] and ED to ED transfer was requested. On my evaluation at 7:30 PM, patient is complaining of severe diffuse pain including headaches and body aches as well as a left leg pain. Her family members at bedside. Patient has chronic pain and takes daily Percocet, mainly for chronic knee pain. She also has what sounds like spinal cord stimulator in place. Nursing Notes were reviewed. REVIEW OF SYSTEMS (2+ for level 4; 10+ for level 5) Review of Systems Unable to perform ROS: Acuity of condition PAST MEDICAL HISTORY Past Medical History: Diagnosis Date ? 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 Asthma ? Cellulitis ? Constipation ? Depression ? Fibromyalgia ? GERD (gastroesophageal reflux disease) ? Hx of right BKA ([facility]) ? Hypertension ? Morbidly obese ([facility]) 02/03/2019 BMI 50.52 ? On home O2 ? FAY treated with BiPAP ? Osteoarthritis ? Osteomyelitis of right foot ([facility]) SCHEDULED FOR THE SURGERY ON 02/11/2019 ? Seasonal allergies ? Shortness of breath ? URSULA (stress urinary incontinence, female) ? Vertigo SURGICAL HISTORY Past Surgical History: Procedure Laterality Date ? ABDOMINOPLASTY ? ABSCESS DRAINAGE Right 08/07/2020 I&D of right BKA hematoma ? ANKLE SURGERY Left 12/19/2021 ankle I and D with placement of wound vac - dr alyssa ? BREAST SURGERY 2007 and abdomin removal for excess ? COLONOSCOPY ? DEBRIDEMENT Left 10/28/2021 irrigation and debridment LLE ? ENDOSCOPY, COLON, DIAGNOSTIC ? FOOT SURGERY Right 2018 IN [place] ? FOOT SURGERY Right 02/11/2019 ? FOOT SURGERY Right 04/08/2019 I&D right foot with antibiotic spacer ? FOOT SURGERY Right 04/24/2019 I&D;, external fixator ? FOOT SURGERY Left 08/04/2021 peroneus longus tenolysis - Dr Gamino ? HYSTERECTOMY 1997 ? INCONTINENCE SURGERY 11/15/2015 synthetic mid urethral sling,cystoscopy ? JOINT REPLACEMENT ? LIPOMA RESECTION Right 2015 shoulder ? ORTHOPEDIC SURGERY Right 04/01/2019 I&D with removal hardware and antibiotic spacer placed ? OTHER SURGICAL HISTORY 09/21/2016 INTERSTIM STAGE II, COMPLEX ANALYSIS OF NEUROSTIMULATOR ? OTHER SURGICAL HISTORY NERVE BLOCKS FROM PAIN MANAGEMENT ? OTHER SURGICAL HISTORY Right 03/07/2019 debridement of right foot ? OTHER SURGICAL HISTORY Right 04/02/2019 R foot skin graft/flap, wound debridement/Wound vac removal ? OTHER SURGICAL HISTORY Right 04/22/2019 right foot I and D ? OTHER SURGICAL HISTORY Right 05/06/2019 Right Below Knee Amputation (CPT 84875), #2 Excisional debridement right iliac crest (wound 7 cm length, 3 cm width, 7 cm depth) ? OTHER SURGICAL HISTORY 07/27/2020 Excision of scar tissue, neuroma RIGHT below knee amputation ? OTHER SURGICAL HISTORY 10/27/2021 Irrigation and debridement of left lower extremity ? OTHER SURGICAL HISTORY Left 11/19/2021 I+D L ankle ? TONSILLECTOMY ? TOTAL KNEE ARTHROPLASTY Left 2012 ARTHROSCOPY FIRST AND KNEE REPLACED ? WISDOM TOOTH EXTRACTION CURRENT MEDICATIONS Previous Medications AMITRIPTYLINE (ELAVIL) 50 MG TABLET BENZONATATE (TESSALON) 100 MG CAPSULE Take by mouth BUDESONIDE (PULMICORT) 0.25 MG/2ML NEBULIZER SUSPENSION BUSPIRONE (BUSPAR) 10 MG TABLET Take by mouth CEFAZOLIN (ANCEF) 1 G INJECTION CITALOPRAM (CELEXA) 40 MG TABLET Take 40 mg by mouth daily CYCLOBENZAPRINE (FLEXERIL) 10 MG TABLET Take 10 mg by mouth nightly FAMOTIDINE (PEPCID) 20 MG TABLET Take 20 mg by mouth 2 times daily FLUTICASONE (FLONASE) 50 MCG/ACT NASAL SPRAY 1 spray as needed FUROSEMIDE (LASIX) 40 MG TABLET See Instructions, TAKE 1 TABLET TWICE DAILY NEEDED, # 90 tab(s), 2 Refill(s), Pharmacy: [facility], 166, cm, 07/01/20 13:34:00 EDT, Height, kg, 07/01/20 13:34:00 EDT, Dosing Weight GABAPENTIN (NEURONTIN) (more content not included)... Normal [facility] Hematocrit Auto (Bld) [Volum e fraction]on 01-21-2022 Hematocrit (Bld) [Volume fraction] 40.4 % 37-47 [facility] Work Phone: Hemogram w/ Autodiffon 01-21 Abs Baso Cnt 0.1 10*3/uL Normal 0.0-0.2 [facility] Comment on above: Performed By: #### S APCR #### [facility] [address] [place], [place] Abs Neutrophile Cnt 17.7 10*3/uL High 1.8-7.0 [facility] Comment on above: Performed By: #### S APCR #### [place] [address] [address] [place], [place] Basophils/100 WBC (Bld) 0.4 % Normal 0.0-2.0 [facility] Comment on above: Performed By: #### S APCR #### [place] [address] [address] [place], [place] Eosinophils (Bld) [#/Vol] 0.0 10*3/uL Normal 0.0-0.5 [facility] Comment on above: Performed By: #### S APCR #### [place] [address] [address] [place], [place] Eosinophils/100 WBC (Bld) 0.0 % Low 1.0-6.0 [facility] Comment on above: Performed By: #### S APCR #### [place] [address] [address] [place], [place] Erythrocyte distribution width (RBC) [Ratio] 15.0 % High 11.5-14.5 [facility] Comment on above: Performed By: #### S APCR #### [address] [place], [place] Granulocytes/100 WBC (Bld) 93.4 % High 40.0-80.0 [facility] Comment on above: Performed By: #### S APCR #### [place] [address] [address] [place], [place] Hematocrit (Bld) [Volume fraction] 36.9 % Normal 35.0-47.0 [facility] Comment on above: Performed By: #### S APCR #### [place] [address] [address] [place], [place] Hemoglobin (Bld) [Mass/Vol] 11.9 g/dL Normal 11.7-16.0 [facility] Comment on above: Performed By: #### S APCR #### [place] [address] [address] [place], [place] Lymphocytes (Bld) [#/Vol] 0.5 10*3/uL Low 1.0-4.3 [facility] Comment on above: Performed By: #### S APCR #### [place] [address] [place] Lymphocytes/100 WBC (Bld) 2.6 % Low 20.0-40.0 [facility] Comment on above: Performed By: #### S APCR #### [place] [address] [address] [place], [place] MCH (RBC) [Entitic mass] 26.4 pg Normal 26.0-34.0 [facility] Comment on above: Performed By: #### S APCR #### [place] [address] [address] [place], [place] MCHC 32.3 % Normal 32.0-36.0 [facility] Comment on above: Performed By: #### S APCR #### [place] [address] [address] [place], [place] MCV (RBC) [Entitic vol] 81.5 fL Normal 79.0-98.0 [facility] Comment on above: Performed By: #### S APCR #### [place] [address] [address] [place], [place] Monocytes (Bld) [#/Vol] 0.7 10*3/uL Normal 0.0-0.8 [facility] Comment on above: Performed By: #### S APCR #### [place] [address] [address] [place], [place] Monocytes/100 WBC (Bld) 3.6 % Normal 2.0-10.0 [facility] [employer] Comment on above: Performed By: #### S APCR #### [facility] [employer] [address] [place], [place] Platelet mean volume (Bld) [Entitic vol] 8.4 fL Normal 7.4-10.4 [facility] [employer] Comment on above: Performed By: #### S APCR #### [facility] [employer] [facility] [address] [place], [place] Platelets (Bld) [#/Vol] 217 10*3/uL Normal 140-440 [facility] [employer] Comment on above: Performed By: #### S APCR #### [facility] [employer] [facility] [address] [place], [place] RBC (Bld) [#/Vol] 4.53 10*6/uL Normal 3.80-5.20 [facility] [employer] Comment on above: Performed By: #### S APCR #### [facility] [employer] [address] [place], [place] WBC (Bld) [#/Vol] 19.0 10*3/uL High 3.6-10.7 [facility] [employer] Comment on above: Performed By: #### S APCR #### [facility] [employer] [facility] [address] [place], [place] INR in Blood by Coagulation assayon 01-21-2022 INR Coag (Bld) [Relative time] 1.2 {INR} [facility] Work Phone: Ketones Test strip Ql (U)on 01-21-2022 Ketones Ql (U) 5 mg/dl Negative [facility] Work Phone: Laboratory - Chemistry and C hemistry - challengeon 01-21-2022 ALP [Catalytic activity/Vol] 112 U/L 45-117 [facility] Work Phone: ALT [Catalytic activity/Vol] 18 U/L 13-56 [facility] Work Phone: CK [Catalytic activity/Vol] 464 U/L 26-192 [facility] Work Phone: CO2 [Moles/Vol] 24.0 mmol/L 21.0-32.0 [facility] Work Phone: Globulin (S) [Mass/Vol] 4.9 g/dL 2.2-4.2 [facility] Work Phone: Urea nitrogen/Creatinine [Mass ratio] 15.3 mg/mg 10-20 [facility] Work Phone: Laboratory - Coagulationon 0 01-21-2022 aPTT Coag (Bld) [Time] 28.4 s 24.1-36.2 [facility] maria lu[facility] Work Phone: [phone] PT Coag (PPP) [Time] 14.9 s 11.7-14.9 [facility] Work Phone: Laboratory - Hematology and Cell countson 01-21-2022 Anisocytosis Ql (Bld) 1+ [facility] Work Phone: Erythrocyte distribution width (RBC) [Entitic vol] 43.5 fL 35.1-43.9 [facility] Work Phone: Erythrocyte distribution width (RBC) [Ratio] 14.4 % 11.6-14.6 [facility] Work Phone: Immature granulocytes/100 WBC (Bld) 0.900 % 0.0-0.9 [facility] Work Phone: Comment on above: IG% - Immature Granu locytes (promyelocytes, myelocytes and metamyelocytes) > 1% indicates that a LEFT SHIFT is Present. MCH (RBC) [Entitic mass] 26.7 pg 27.0-32.0 [facility] Work Phone: Nucleated RBC/100 WBC (Bld) [Ratio] 0 % 0-5 [facility] Work Phone: MCHC Auto (RBC) [Mass/Vol]on 01-21-2022 MCHC (RBC) [Mass/Vol] 32.2 g/dL 32-36 [facility] Work Phone: Mucus LM Ql (Urine sed)on Mucus Ql (Urine sed) 0 SEEN /hpf [facility] Work Phone: Nitrite Test strip Ql (U)on 01-21-2022 Nitrite Ql (U) Negative Negative [facility] Work Phone: No Panel Informationon 01-21 SARS-CoV-2 & FLU Antigen (Rapid) [facility] Work Phone: Estimated Creatinine Clearance Calc 46.28 ml/min [facility] Work Phone: Estimated GFR (MDRD) Amer 60 mL/min >60 [facility] Work Phone: Comment on above: GFR Calc Estimated GFR (MDRD) Non-Af Amer 49 mL/min >60 [facility] Work Phone: Comment on above: Non- GFR Calc Troponin I High Sensitivity 33 pg/mL 3.0-54.0 [facility] Work Phone: Comment on above: Please Note: New Jen t Units and Gender Specific Reference Ranges. For more information see Policy Stat Procedure Liberal High Sensitivity Troponin (TNIH) and attachments. Platelets bldon 01-21-2022 Platelets (Bld) [#/Vol] 274 10*3/uL 150-450 [facility] Work Phone: Procalcitoninon 01-21-2022 Interpretation See Below Normal [facility] [employer] [facility] Comment on above: Result Comment: PCT <0.50 = Low risk of severe sepsis and/or septic shock. PCT >2.00 = High risk of severe sepsis and/or septic shock. Performed By: #### L ACT3, CRP2, ESR ####[facility] [address] [place] [address]#### PCAL ####[facility] [id number] [place] [address] Protein Test strip Ql (U)on 01-21-2022 Protein Ql (U) 100 mg/dl Negative [facility] Work Phone: Serum or plasma albumin merissa urement (mass/volume)on 01-21-2022 Albumin [Mass/Vol] 3.1 g/dL 3.2-5.0 [facility] Work Phone: Serum or plasma albumin/glob ulin mass ratioon 01-21-2022 Albumin/Globulin [Mass ratio] 0.6 {ratio} 0.9-2.4 [facility] Work Phone: Serum or plasma calcium merissa urement (mass/volume)on 01-21-2022 Calcium [Mass/Vol] 9.0 mg/dL 8.5-10.1 [facility] Work Phone: Serum or plasma creatinine m easurement (mass/volume)on 01-21-2022 Creatinine [Mass/Vol] 1.18 mg/dL 0.55-1.02 [facility] Work Phone: Comment on above: The validity of the calculated GFR & GFRAA in patients over 70 years has not been determined. Clinical correlation is essential. Serum or plasma urea nitroge n measurement (mass/volume)on 01-21-2022 Urea nitrogen [Mass/Vol] 18 mg/dL 7-18 [facility] Work Phone: Squamous epithelial cells de tection in urine sediment by light microscopyon 01-21-2022 Epithelial cells.squamous LM Ql (Urine sed) 5-10 SEEN /hpf [facility] Work Phone: Thin prep Papanicolaou smear with manual screeningon 01-21-2022 Thin prep Papanicolaou smear with manual screening 21 U/L 15-37 [facility] Work Phone: Thin prep Papanicolaou smear with manual screening 8 5-15 [facility] Work Phone: Urine blood detectionon 12-31 RBC Ql (U) 150 /ul Negative [facility] Work Phone: RBC Ql (U) 5-10 SEEN /hpf [facility] Work Phone: Urine clarityon 01-21-2022 Clarity (U) Sl. Cloudy Clear [facility] Work Phone: Urine color determinationon 01-21-2022 Color (U) Yellow Yellow [facility] Work Phone: Urine glucose detectionon Glucose Ql (U) Normal mg/dl Normal [facility] Work Phone: Urine leukocyte esterase det ection by dipstickon 01-21-2022 Leukocyte esterase Test strip Ql (U) 25 /ul Negative [facility] Work Phone: Urine pHon 01-21-2022 pH (U) 5.0 [pH] [facility] Work Phone: Urine sediment bacteria coun t by microscopy (number/high power field)on 01-21-2022 Bacteria LM.HPF (Urine sed) [#/Area] 1 /[HPF] None Seen [facility] Work Phone: Urine specific gravity measu rementon 01-21-2022 Specific gravity (U) [Rel density] 1.025 [facility] Work Phone: Urobilinogen Auto test strip Ql (U)on 01-21-2022 Urobilinogen Ql (U) Normal mg/dl Normal [facility] Work Phone: Glucose,Bedsideon 01-11-2022 Glucose [Mass/Vol] 92 mg/dL Normal 70-100 [facility] [employer] ([employer] Comment on above: Result Comment: Test performed by glucose meter. Results may be 10%-15% lower than serum/plasma values. (CLIA ID [id number]) Performed By: #### B GLU ####[facility] [employer] ([employer]) [id number] [place] [address] OPERATIVE REPORTon 2 Ordered by an unspec ified provider. [facility] [employer] POCT GlucoseOrdered By: Galo Menard on 01-11-2022 Glucose [Mass/Vol] 92 mg/dL 70 - 100 mg/dL [facility] Work Phone: Comment on above: Test performed by gl ucose meter. Results may be 10%-15% lower than serum/plasma values. (CLIA ID [id number]) [facility] Work Phone: POCT Glucoseon 01-11-2022 Test Performed by [facility], [address] , [place], [place] [address] [facility] OPERATIVE REPORTon 2 Ordered by an unspec ified provider. [facility] Surgical Pathologyon 022 Surgical Pathology [id number] [facility] PATHOLOGY AND LABORATORY MEDICINE [address] [place], [place] [id number] Fax - FINAL SURGICAL PATHOLOGY REPORT NAME: SIOBHAN HAAS N [id number] : 1960 61 Y F [facility] NO.: [id number] LOCATION: [place] [address] PROCEDURE 12/19/2021 DATE: SURGEON: AMBERLY SCHAEFER MD RECEIVED 12/19/2021 DATE: ATTENDING: AMBERLY SCHAEFER MD REPORT DATE: 12/22/2021 COPIES TO: DIAGNOSIS: LEFT LATERAL ANKLE, WOUND, DEBRIDEMENT - SKIN AND SUBJACENT SOFT TISSUE WITH ULCERATION, NECROSIS AND INFLAMED ORGANIZING GRANULATION TISSUE. SMT/SMT Signature> S TERESA ECHEVERRIA M.D. CLINICAL INFORMATION: T81.31XA SPECIMEN: WOUND , LEFT LATERAL ANKLE WOUND GROSS DESCRIPTION: Received in the fresh state labeled left lateral ankle wound and consists of an elongated segment of olivas tissue measuring 1.8 x 0.7 x 0.4 cm. Sectioned and entirely submitted into one cassette. [facility] Disclaimer: The following statement applies to all immunohistochemistry, in situ hybridization, molecular studies, and immunofluorescence testing. The use of one or more reagents in the above tests is regulated as an analyte specific reagent (ASR). These tests were developed and their performance characteristics determined by the clinical laboratories of [facility]. They have not been cleared by the US Food and Drug Administration (FDA). The FDA has determined that such clearance or approval is not necessary. All the above immunostains were performed on paraffin embedded tissue. Appropriate positive and negative controls (where applicable) were run in parallel with the patient's specimen; these controls showed expected staining pattern, with acceptable intensity of staining. Immunohistochemical assays have not been validated on decalcified tissues. Results should be interpreted with caution given the raised possibility of false negativity on decalcified specimens. Case reviewed at [address] [address]. DEPARTMENT OF PATHOLOGY AND LABORATORY MEDICINE [place], [place] [address] [email or web address] Normal [facility] CULTURE ANAEROBEon CULTURE ANAEROBE CULTURE ANAEROBE --> Status: F No growth of anaerobes at 5 days. Normal [facility] Comment on above: Performed By: #### B MP3, HEMDF #### [address] [address] Basic Metabolic Panelon 11-02 Anion gap [Moles/Vol] 0 mmol/L Low 3-13 [facility] Comment on above: Performed By: #### H EMOG #### [address] Calcium [Mass/Vol] 8.4 mg/dL Normal 8.4-10.4 [facility] Comment on above: Performed By: #### H EMOG #### [facility] [address] [place], [place] CO2 [Moles/Vol] 32 mmol/L High 22-30 [facility] Comment on above: Performed By: #### H EMOG #### [facility] [address] [place], [place] Glucose [Mass/Vol] 96 mg/dL Normal 70-100 [facility] Comment on above: Performed By: #### H EMOG #### [facility] [address] [place], [place] Urea nitrogen [Mass/Vol] 24 mg/dL High 9-20 [facility] Comment on above: Performed By: #### H EMOG #### [facility] [address] [place], [place] Creatinine [Mass/Vol] 0.89 mg/dL Normal 0.52-1.25 [facility] Comment on above: Performed By: #### H EMOG #### [facility] [address] [place], [place] GFR/1.73 sq M.predicted among blacks MDRD (S/P/Bld) [Vol rate/Area] 80.4 mL/min/{1.73_m2} Normal >60 [facility] Comment on above: Performed By: #### H EMOG #### [facility] [address] [place], [place] GFR/1.73 sq M.predicted among non-blacks MDRD (S/P/Bld) [Vol rate/Area] 69.3 mL/min/{1.73_m2} Normal >60 [facility] Comment on above: Result Comment: KDIG O guidelines provide the following GFR categories: Stage GFR(ml/min/1.73 m2) Terms G1 >=90 Normal or high G2 60-89 Mildly decreased* G3a 45-59 Mildly to moderately decreased G3b 30-44 Moderately to severely decreased G4 15-29 Severely decreased G5 <15 Kidney failure *Relative to young adult level. In the absence of evidence of kidney damage, neither GFR category G1 nor G2 fulfill the criteria for CKD. The CKD-EPI equation is validated in individuals 18 years of age and older. Currently the best equation for estimating glomerular filtration rate (GFR) from serum creatinine in children is the Bedside Bolton equation. It is less accurate in patients with extremes of muscle mass, restriction of dietary protein, ingestion of creatine, extra-renal metabolism of creatinine, or treatment with medications that affect renal tubular creatinine secretion. Performed By: #### H EMOG #### [address] Potassium [Moles/Vol] 4.3 mmol/L Normal 3.5-5.1 [facility] Comment on above: Performed By: #### H EMOG #### [address] Chloride [Moles/Vol] 104 mmol/L Normal 98-107 [facility] Comment on above: Performed By: #### H EMOG #### [address] Sodium [Moles/Vol] 136 mmol/L Normal 135-145 [facility] Comment on above: Performed By: #### H EMOG #### [address] Hemogram w/ Autodiffon 11-21 Abs Baso Cnt 0.0 10*3/uL Normal 0.0-0.2 [facility] Comment on above: Performed By: #### H EMOG #### [address] Abs Neutrophile Cnt 3.2 10*3/uL Normal 1.8-7.0 [facility] Comment on above: Performed By: #### H EMOG #### [address] Basophils/100 WBC (Bld) 0.8 % Normal 0.0-2.0 [facility] Comment on above: Performed By: #### H EMOG #### [address] Eosinophils (Bld) [#/Vol] 0.1 10*3/uL Normal 0.0-0.5 [facility] Comment on above: Performed By: #### H EMOG #### [place] [address] [address] [place], [place] Eosinophils/100 WBC (Bld) 2.2 % Normal 1.0-6.0 [facility] Comment on above: Performed By: #### H EMOG #### [place] [address] [address] [place], [place] Erythrocyte distribution width (RBC) [Ratio] 17.0 % High 11.5-14.5 [facility] Comment on above: Performed By: #### H EMOG #### [place] [address] [address] [place], [place] Granulocytes/100 WBC (Bld) 50.4 % Normal 40.0-80.0 [facility] Comment on above: Performed By: #### H EMOG #### [place] [address] [address] [place], [place] Hematocrit (Bld) [Volume fraction] 32.9 % Low 35.0-47.0 [facility] Comment on above: Performed By: #### H EMOG #### [place] [address] [address] [place], [place] Hemoglobin (Bld) [Mass/Vol] 10.6 g/dL Low 11.7-16.0 [facility] Comment on above: Performed By: #### H EMOG #### [place] [address] [address] [place], [place] Lymphocytes (Bld) [#/Vol] 2.0 10*3/uL Normal 1.0-4.3 [facility] Comment on above: Performed By: #### H EMOG #### [place] [address] [address] [place], [place] Lymphocytes/100 WBC (Bld) 32.7 % Normal 20.0-40.0 [facility] Comment on above: Performed By: #### H EMOG #### [place] [address] [address] [place], [place] MCH (RBC) [Entitic mass] 27.8 pg Normal 26.0-34.0 [facility] Comment on above: Performed By: #### H EMOG #### [facility] [address] [place], [place] MCHC 32.3 % Normal 32.0-36.0 [facility] Comment on above: Performed By: #### H EMOG #### [facility] [address] [place], [place] MCV (RBC) [Entitic vol] 86.0 fL Normal 79.0-98.0 [facility] Comment on above: Performed By: #### H EMOG #### [place] [address] [address] [place], [place] Monocytes (Bld) [#/Vol] 0.9 10*3/uL High 0.0-0.8 [facility] Comment on above: Performed By: #### H EMOG #### [place] [address] [address] [place], [place] Monocytes/100 WBC (Bld) 13.9 % High 2.0-10.0 [facility] Comment on above: Performed By: #### H EMOG #### [place] [address] [address] [place], [place] Platelet mean volume (Bld) [Entitic vol] 9.2 fL Normal 7.4-10.4 [facility] Comment on above: Performed By: #### H EMOG #### [place] [address] [address] [place], [place] Platelets (Bld) [#/Vol] 193 10*3/uL Normal 140-440 [facility] Comment on above: Performed By: #### H EMOG #### [place] [address] [address] [place], [place] RBC (Bld) [#/Vol] 3.82 10*6/uL Normal 3.80-5.20 [facility] Comment on above: Performed By: #### H EMOG #### [place] [address] [address] [place], [place] WBC (Bld) [#/Vol] 6.3 10*3/uL Normal 3.6-10.7 [facility] Comment on above: Performed By: #### H EMOG #### [place] [address] [address] [place], [place] Basic Metabolic Panelon 11-02 Anion gap [Moles/Vol] 3 mmol/L Normal 3-13 [facility] Comment on above: Performed By: #### B MP3, HEMDF #### [place] [address] [address] [place], [place] Calcium [Mass/Vol] 8.7 mg/dL Normal 8.4-10.4 [facility] Comment on above: Performed By: #### B MP3, HEMDF #### [place] [address] [address] [place], [place] CO2 [Moles/Vol] 29 mmol/L Normal 22-30 [facility] Comment on above: Performed By: #### B MP3, HEMDF #### [place] [address] [address] [place], [place] Creatinine [Mass/Vol] 0.73 mg/dL Normal 0.52-1.25 [facility] Comment on above: Performed By: #### B MP3, HEMDF #### [place] [address] [address] [place], [place] GFR/1.73 sq M.predicted among blacks MDRD (S/P/Bld) [Vol rate/Area] mL/min/{1.73_m2} Normal >60 [facility] Comment on above: Performed By: #### B MP3, HEMDF #### [place] [address] [address] [place], [place] GFR/1.73 sq M.predicted among non-blacks MDRD (S/P/Bld) [Vol rate/Area] 88.1 mL/min/{1.73_m2} Normal >60 [facility] Comment on above: Result Comment: KDIG O guidelines provide the following GFR categories: Stage GFR(ml/min/1.73 m2) Terms G1 >=90 Normal or high G2 60-89 Mildly decreased* G3a 45-59 Mildly to moderately decreased G3b 30-44 Moderately to severely decreased G4 15-29 Severely decreased G5 <15 Kidney failure *Relative to young adult level. In the absence of evidence of kidney damage, neither GFR category G1 nor G2 fulfill the criteria for CKD. The CKD-EPI equation is validated in individuals 18 years of age and older. Currently the best equation for estimating glomerular filtration rate (GFR) from serum creatinine in children is the Bedside Bolton equation. It is less accurate in patients with extremes of muscle mass, restriction of dietary protein, ingestion of creatine, extra-renal metabolism of creatinine, or treatment with medications that affect renal tubular creatinine secretion. Performed By: #### B MP3, HEMDF #### [place] [address] [address] [place], [place] Glucose [Mass/Vol] 152 mg/dL High 70-100 [facility] Comment on above: Performed By: #### B MP3, HEMDF #### [place] [address] [place], [place] Urea nitrogen [Mass/Vol] 24 mg/dL High 9-20 [facility] Comment on above: Performed By: #### B MP3, HEMDF #### [place] [address] [address] [place], [place] Chloride [Moles/Vol] 104 mmol/L Normal 98-107 [facility] Comment on above: Performed By: #### B MP3, HEMDF #### [place] [address] [address] [place], [place] Potassium [Moles/Vol] 4.5 mmol/L Normal 3.5-5.1 [facility] Comment on above: Performed By: #### B MP3, HEMDF #### [place] [address] [place] Sodium [Moles/Vol] 137 mmol/L Normal 135-145 [facility] Comment on above: Performed By: #### B MP3, HEMDF #### [address] [place], [place] Hemogram w/ Autodiffon 11-20 Abs Baso Cnt 0.0 10*3/uL Normal 0.0-0.2 [facility] Comment on above: Performed By: #### B MP3, HEMDF #### [facility] [address] [place], [place] Abs Neutrophile Cnt 6.7 10*3/uL Normal 1.8-7.0 [facility] Comment on above: Performed By: #### B MP3, HEMDF #### [facility] [address] [place], [place] Basophils/100 WBC (Bld) 0.3 % Normal 0.0-2.0 [facility] Comment on above: Performed By: #### B MP3, HEMDF #### [facility] [address] [place], [place] Eosinophils (Bld) [#/Vol] 0.0 10*3/uL Normal 0.0-0.5 [facility] Comment on above: Performed By: #### B MP3, HEMDF #### [place] [address] [address] [place], [place] Eosinophils/100 WBC (Bld) 0.0 % Low 1.0-6.0 [facility] Comment on above: Performed By: #### B MP3, HEMDF #### [place] [address] [address] [place], [place] Erythrocyte distribution width (RBC) [Ratio] 16.7 % High 11.5-14.5 [facility] Comment on above: Performed By: #### B MP3, HEMDF #### [facility] [address] [place], [place] Granulocytes/100 WBC (Bld) 80.9 % High 40.0-80.0 [facility] Comment on above: Performed By: #### B MP3, HEMDF #### [facility] [address] [place], [place] Hematocrit (Bld) [Volume fraction] 33.6 % Low 35.0-47.0 [facility] Comment on above: Performed By: #### B MP3, HEMDF #### [facility] [address] [place], [place] Hemoglobin (Bld) [Mass/Vol] 11.0 g/dL Low 11.7-16.0 [facility] Comment on above: Performed By: #### B MP3, HEMDF #### [facility] [address] [place], [place] Lymphocytes (Bld) [#/Vol] 1.0 10*3/uL Normal 1.0-4.3 [facility] Comment on above: Performed By: #### B MP3, HEMDF #### [facility] [address] [place], [place] Lymphocytes/100 WBC (Bld) 12.1 % Low 20.0-40.0 [facility] Comment on above: Performed By: #### B MP3, HEMDF #### [place] [address] [address] [place], [place] MCH (RBC) [Entitic mass] 28.2 pg Normal 26.0-34.0 [facility] Comment on above: Performed By: #### B MP3, HEMDF #### [place] [address] [address] [place], [place] MCHC 32.8 % Normal 32.0-36.0 [facility] Comment on above: Performed By: #### B MP3, HEMDF #### [place] [address] [address] [place], [place] MCV (RBC) [Entitic vol] 86.1 fL Normal 79.0-98.0 [facility] Comment on above: Performed By: #### B MP3, HEMDF #### [place] [address] [address] [place], [place] Monocytes (Bld) [#/Vol] 0.6 10*3/uL Normal 0.0-0.8 [facility] Comment on above: Performed By: #### B MP3, HEMDF #### [place] [address] [address] [place], [place] Monocytes/100 WBC (Bld) 6.7 % Normal 2.0-10.0 [facility] Comment on above: Performed By: #### B MP3, HEMDF #### [place] [place] [address] Platelet mean volume (Bld) [Entitic vol] 9.7 fL Normal 7.4-10.4 [facility] Comment on above: Performed By: #### B MP3, HEMDF #### [place] [address] [address] [place], [place] Platelets (Bld) [#/Vol] 192 10*3/uL Normal 140-440 [facility] Comment on above: Performed By: #### B MP3, HEMDF #### [place] [address] [address] [place], [place] RBC (Bld) [#/Vol] 3.90 10*6/uL Normal 3.80-5.20 [facility] Comment on above: Performed By: #### B MPGaldino, HEMDF #### [place] [address] [address] [place], [place] WBC (Bld) [#/Vol] 8.3 10*3/uL Normal 3.6-10.7 [facility] Comment on above: Performed By: #### B MPGaldino, HEMDF #### [place] [address] [address] [place], [place] Basic Metabolic Panelon 11-01 Calcium [Mass/Vol] 8.6 mg/dL Normal 8.4-10.4 [facility] Comment on above: Performed By: #### H EMOG #### [place] [address] [address] [place], [place] Anion gap [Moles/Vol] 4 mmol/L Normal 3-13 [facility] Comment on above: Performed By: #### H EMOG #### [place] [address] [address] [place], [place] CO2 [Moles/Vol] 26 mmol/L Normal 22-30 [facility] Comment on above: Performed By: #### H EMOG #### [place] [address] [address] [place], [place] Creatinine [Mass/Vol] 1.08 mg/dL Normal 0.52-1.25 [facility] Comment on above: Performed By: #### H EMOG #### [place] [place] [address] GFR/1.73 sq M.predicted among blacks MDRD (S/P/Bld) [Vol rate/Area] 63.6 mL/min/{1.73_m2} Normal >60 [facility] Comment on above: Performed By: #### H EMOG #### [facility] [address] [place] [address] GFR/1.73 sq M.predicted among non-blacks MDRD (S/P/Bld) [Vol rate/Area] 54.9 mL/min/{1.73_m2} Abnormal >60 [facility] Comment on above: Result Comment: KDIG O guidelines provide the following GFR categories: Stage GFR(ml/min/1.73 m2) Terms G1 >=90 Normal or high G2 60-89 Mildly decreased* G3a 45-59 Mildly to moderately decreased G3b 30-44 Moderately to severely decreased G4 15-29 Severely decreased G5 <15 Kidney failure *Relative to young adult level. In the absence of evidence of kidney damage, neither GFR category G1 nor G2 fulfill the criteria for CKD. The CKD-EPI equation is validated in individuals 18 years of age and older. Currently the best equation for estimating glomerular filtration rate (GFR) from serum creatinine in children is the Bedside Bolton equation. It is less accurate in patients with extremes of muscle mass, restriction of dietary protein, ingestion of creatine, extra-renal metabolism of creatinine, or treatment with medications that affect renal tubular creatinine secretion. Performed By: #### H EMOG #### [facility] [address] [place], [place] Glucose [Mass/Vol] 116 mg/dL High 70-100 [facility] Comment on above: Performed By: #### H EMOG #### [facility] [address] [place] [address] Urea nitrogen [Mass/Vol] 30 mg/dL High 9-20 [facility] Comment on above: Performed By: #### H EMOG #### [facility] [address] [place], [place] Chloride [Moles/Vol] 104 mmol/L Normal 98-107 [facility] Comment on above: Performed By: #### H EMOG #### [facility] [address] [place], [place] Potassium [Moles/Vol] 4.1 mmol/L Normal 3.5-5.1 [facility] Comment on above: Performed By: #### H EMOG #### [place] [address] [place] Sodium [Moles/Vol] 134 mmol/L Low 135-145 [facility] Comment on above: Performed By: #### H EMOG #### [place] [address] [address] [place], [place] Hemogram w/ Autodiffon 11-19 Abs Baso Cnt 0.0 10*3/uL Normal 0.0-0.2 [facility] Comment on above: Performed By: #### H EMOG #### [address] Abs Neutrophile Cnt 3.8 10*3/uL Normal 1.8-7.0 [facility] Comment on above: Performed By: #### H EMOG #### [place] [address] [address] [place], [place] Basophils/100 WBC (Bld) 0.7 % Normal 0.0-2.0 [facility] Comment on above: Performed By: #### H EMOG #### [address] Eosinophils (Bld) [#/Vol] 0.2 10*3/uL Normal 0.0-0.5 [facility] Comment on above: Performed By: #### H EMOG #### [place] [address] [address] [place], [place] Eosinophils/100 WBC (Bld) 3.3 % Normal 1.0-6.0 [facility] Comment on above: Performed By: #### H EMOG #### [address] Erythrocyte distribution width (RBC) [Ratio] 16.3 % High 11.5-14.5 [facility] Comment on above: Performed By: #### H EMOG #### [place] [address] [address] [place], [place] Granulocytes/100 WBC (Bld) 63.7 % Normal 40.0-80.0 [facility] Comment on above: Performed By: #### H EMOG #### [place] [address] [address] [place], [place] Hematocrit (Bld) [Volume fraction] 34.0 % Low 35.0-47.0 [facility] Comment on above: Performed By: #### H EMOG #### [place] [address] [address] [place], [place] Hemoglobin (Bld) [Mass/Vol] 11.0 g/dL Low 11.7-16.0 [facility] Comment on above: Performed By: #### H EMOG #### [address] Lymphocytes (Bld) [#/Vol] 1.2 10*3/uL Normal 1.0-4.3 [facility] Comment on above: Performed By: #### H EMOG #### [place] [address] [address] [place], [place] Lymphocytes/100 WBC (Bld) 20.9 % Normal 20.0-40.0 [facility] Comment on above: Performed By: #### H EMOG #### [address] [place], [place] MCH (RBC) [Entitic mass] 27.7 pg Normal 26.0-34.0 [facility] Comment on above: Performed By: #### H EMOG #### [place] [address] [address] [place], [place] MCHC 32.3 % Normal 32.0-36.0 [facility] Comment on above: Performed By: #### H EMOG #### [address] MCV (RBC) [Entitic vol] 85.8 fL Normal 79.0-98.0 [facility] Comment on above: Performed By: #### H EMOG #### [place] [address] [address] [place], [place] Monocytes (Bld) [#/Vol] 0.7 10*3/uL Normal 0.0-0.8 [facility] Comment on above: Performed By: #### H EMOG #### [facility] [address] [place], [place] Monocytes/100 WBC (Bld) 11.4 % High 2.0-10.0 [facility] Comment on above: Performed By: #### H EMOG #### [facility] [address] [place], [place] Platelet mean volume (Bld) [Entitic vol] 9.4 fL Normal 7.4-10.4 [facility] Comment on above: Performed By: #### H EMOG #### [place] [address] [address] [place], [place] Platelets (Bld) [#/Vol] 206 10*3/uL Normal 140-440 [facility] Comment on above: Performed By: #### H EMOG #### [facility] [address] [place], [place] RBC (Bld) [#/Vol] 3.97 10*6/uL Normal 3.80-5.20 [facility] Comment on above: Performed By: #### H EMOG #### [facility] [address] [place], [place] WBC (Bld) [#/Vol] 6.0 10*3/uL Normal 3.6-10.7 [facility] Comment on above: Performed By: #### H EMOG #### [facility] [address] [place], [place] Op Noteon 11-19-2021 Op Note Pre-operative Diagnosis:?Left?ankle?infec tion and abscess ? Post-operative Diagnosis: Same ? Procedure: #1 Incision and drainage?abscess?Left?ankle ?(Wound dimensions: Length proximal to distal:?8?cm, Width?anterior to posterior:?2 cm, Depth:?3?cm? #2 Closure of left ankle wound ? Components used:? ? Anesthesia:?General ? Surgeon: Jess ? Assistants: Meeta Regalado ? Estimated Blood Loss:?Minimal ? Complications: None ? Specimens:?None ? Medications:?Siobhan was on preoperative scheduled antibiotics and no further antibiotics were given ? Operative findings: The lateral ankle wound appeared to be grossly free of infection. Granulation tissue was noted throughout the wound (see clinical photo of Intra-Op wound below). It was decided to close the wound, and a layered closure was performed. History of present illness:Sylvieis a 61 y.o.?female?with a history significant for having undergone a left peroneus longus repair to the brevis. She developed an infection following that surgery and underwent 2 separate operative procedures for incision and drainage. After the second surgery the wound was closed. She failed to heal the wound and had continued drainage. She underwent an additional incision and drainage of the left ankle wound on 11/17/2021 with placement of a VAC dressing. I made the recommendation for repeat surgical intervention. Despite the risks she consented to proceed. ? Operative report: ? I met with?Siobhan? and her son?in the preoperative area prior to the procedure and discussed the surgical plan once again and answered all of her?questions related to the procedure and the expected post-operative course. The risks of surgery were discussed including but not limited to the risks of medications given for surgery, the risk of blood loss during and after surgery that can lead to the need for blood products in certain situations, infection, damage to normal structures that can lead to long distance operator problems of pain or dysfunction, wound healing complications, ??and late or chronic pain as a result of the surgical intervention. ?In addition potentially life threatening complications that can occur at the time of surgery and after surgery were discussed including but not limited to deep vein thrombosis, pulmonary embolism, myocardial infarction, stroke and . I initialed?her??Left?lower?e xtremity and signed ?her??consent form. ? Tannerwas then brought to the operating room and placed in the supine position on the Operating Room table. ?Care was taken to identify and pad all bony prominences. A general anesthetic was then given by the anesthesia staff and an endotracheal tube was placed by the anesthesia staff. ?At all times during the operative procedure the patient's head neck and airway were protected by the anesthesia staff. Siobhan was then placed in a lateral decubitus position with the left side being up. Axillary roll was placed. Care was taken to identify and pad all bony prominences. A tourniquet was not utilized for the case. The VAC dressing was removed from the left ankle wound. ? The?Left??lower?extremity was then prepped and draped in the usual orthopedic sterile fashion. A surgical timeout was then performed with the patient's identification, the procedure to be performed being reviewed with the consent form, verification that the patient had received preoperative antibiotics, and verification of the correct surgical side. ?Everyone in the operating room stopped what they were doing in order to participate in the timeout. ?This timeout was performed by myself, the circulating room nurse and the anesthesia staff. ?The patient's ASA was verified by the nurse machine printer and the anesthesia staff. ?Fire risk was assessed. ? Incision and drainage of the wound site along the lateral ankle was performed. All tissue within the open wound site was excisionally debrided. ?No gross purulence was found. ?The peroneus brevis was found to be intact with no signs of infection. ?The fibula was found to be infection free with an intact periosteum. The entire zone of infection was exposed. ?A combination of sharp excision utilizing a scalpel, rongeurs and curets were used to excise any nonviable tissue. ?Once an adequate debridement had been performed and I was comfortable that no additional debridement was necessary?the tourniquet was released and any active bleeding was controlled using Bovie cautery. ?The wound was?then?thoroughly irrigated with copious amounts of sterile saline.?? The subcutaneous tissues were then closed utilizing 2-0 PDS. The skin was then closed utilizing 3-0 nylon. Dry sterile dressings were then applied. Siobhan was then awakened from her anesthetic, transferred to her hospital bed and taken to the recovery room in stable medical condition. Post-operative plan: Additional Surgical Interventio (more content not included)... Normal [facility] Basic Metabolic Panelon 11-01 Anion gap [Moles/Vol] 5 mmol/L Normal 3-13 [facility] Comment on above: Performed By: #### [facility] #### [address] [address] Calcium [Mass/Vol] 8.9 mg/dL Normal 8.4-10.4 [facility] Comment on above: Performed By: #### H EMOG #### [facility] [address], [place] CO2 [Moles/Vol] 28 mmol/L Normal 22-30 [facility] Comment on above: Performed By: #### H EMOG #### [facility] [address] [place] [address] Glucose [Mass/Vol] 148 mg/dL High 70-100 [facility] Comment on above: Performed By: #### H EMOG #### [facility] [address], [place] Urea nitrogen [Mass/Vol] 21 mg/dL High 9-20 [facility] Comment on above: Performed By: #### H EMOG #### [facility] [address], [place] Creatinine [Mass/Vol] 0.95 mg/dL Normal 0.52-1.25 [facility] Comment on above: Performed By: #### H EMOG #### [facility] [address], [place] GFR/1.73 sq M.predicted among blacks MDRD (S/P/Bld) [Vol rate/Area] 74.3 mL/min/{1.73_m2} Normal >60 [facility] Comment on above: Performed By: #### H EMOG #### [facility] [address] [place] [address] GFR/1.73 sq M.predicted among non-blacks MDRD (S/P/Bld) [Vol rate/Area] 64.1 mL/min/{1.73_m2} Normal >60 [facility] Comment on above: Result Comment: KDIG O guidelines provide the following GFR categories: Stage GFR(ml/min/1.73 m2) Terms G1 >=90 Normal or high G2 60-89 Mildly decreased* G3a 45-59 Mildly to moderately decreased G3b 30-44 Moderately to severely decreased G4 15-29 Severely decreased G5 <15 Kidney failure *Relative to young adult level. In the absence of evidence of kidney damage, neither GFR category G1 nor G2 fulfill the criteria for CKD. The CKD-EPI equation is validated in individuals 18 years of age and older. Currently the best equation for estimating glomerular filtration rate (GFR) from serum creatinine in children is the Bedside Bolton equation. It is less accurate in patients with extremes of muscle mass, restriction of dietary protein, ingestion of creatine, extra-renal metabolism of creatinine, or treatment with medications that affect renal tubular creatinine secretion. Performed By: #### H EMOG #### [facility] [address] [place] [address] Chloride [Moles/Vol] 105 mmol/L Normal 98-107 [facility] Comment on above: Performed By: #### H EMOG #### [facility] [address] [place] [address] Potassium [Moles/Vol] 5.1 mmol/L Normal 3.5-5.1 [facility] Comment on above: Performed By: #### H EMOG #### [facility] [address] [place] [address] Sodium [Moles/Vol] 139 mmol/L Normal 135-145 [facility] Comment on above: Performed By: #### H EMOG #### [facility] [address] [place] [address] CR Chest Portableon 11-18-19 22 CR Chest Portable Patient Name: SIOBHAN MCINTOSH Diagnostic Radiology ACCESSION EXAM DATE/TIME PROCEDURE ORDERING PROVIDER [id number] 11/18/2021 07:56 EST CR Chest Portable IRENE ALDRIDGE CPT code 34676 Reason For Exam (CR Chest Portable) line placement Report Examination: AP portable chest Clinical Indication: line placement Comparison: 11/13/2021 Findings: Lungs appear normally inflated. Left-sided PICC line catheter tip terminates at the brachiocephalic SVC junction. Additional thoracic spinal stimulator leads extend to the midthoracic region. There is no focal consolidation, effusion, or pulmonary edema identified. The cardiomediastinal silhouette is within normal limits. Degenerative changes shoulders and spine. Impression: No acute cardiopulmonary process. Left-sided PICC line catheter tip terminating at the brachiocephalic SVC junction. Report Dictated on Final Dictated: 11/18/2021 8:25 am Dictating Physician: MD BRAGG ANTHONY J Signed Date and Time: 11/18/2021 8:28 am Signed by: MD BRAGG ANTHONY J Transcribed Date and Time: 11/18/2021 8:25 Normal [facility] CULTURE AND STAIN - TISSUEon 11-18-2021 CULTURE AND STAIN - TISSUE CULTURE & STAIN - TISSUE --> Status: F Mixed skin pierce present. No Staph aureus isolated. No Pseudomonas aeruginosa isolated. No beta-hemolytic streptococcus isolated. No Staph aureus isolated. No Pseudomonas aeruginosa isolated. No beta-hemolytic streptococcus isolated. STAIN GRAM --> Status: F No polymorphonuclear cells/lpf. No organisms seen. No organisms seen. Normal [facility] Comment on above: Performed By: #### B MP3, HEMDF #### [facility] [address] [place] [address] Hemogram w/ Autodiffon 11-18 Abs Baso Cnt 0.0 10*3/uL Normal 0.0-0.2 [facility] Comment on above: Performed By: #### B MP3 #### [facility] [address] [place] [address] Abs Neutrophile Cnt 4.9 10*3/uL Normal 1.8-7.0 [facility] Comment on above: Performed By: #### B MP3 #### [facility] [address] [place] [address] Basophils/100 WBC (Bld) 0.5 % Normal 0.0-2.0 [facility] Comment on above: Performed By: #### B MP3 #### [facility] [address] [place] [address] Eosinophils (Bld) [#/Vol] 0.0 10*3/uL Normal 0.0-0.5 [facility] Comment on above: Performed By: #### B MP3 #### [facility] [address] [place] [address] Eosinophils/100 WBC (Bld) 0.0 % Low 1.0-6.0 [facility] Comment on above: Performed By: #### B MP3 #### [facility] [address], [place] Erythrocyte distribution width (RBC) [Ratio] 16.7 % High 11.5-14.5 [facility] Comment on above: Performed By: #### B MP3 #### [facility] [address], [place] Granulocytes/100 WBC (Bld) 83.7 % High 40.0-80.0 [facility] Comment on above: Performed By: #### B MP3 #### [facility] [address], [place] Hematocrit (Bld) [Volume fraction] 36.0 % Normal 35.0-47.0 [facility] Comment on above: Performed By: #### B MP3 #### [place] [address], [place] Hemoglobin (Bld) [Mass/Vol] 11.5 g/dL Low 11.7-16.0 [facility] Comment on above: Performed By: #### B MP3 #### [facility] [address], [place] Lymphocytes (Bld) [#/Vol] 0.7 10*3/uL Low 1.0-4.3 [facility] Comment on above: Performed By: #### B MP3 #### [facility] [address], [place] Lymphocytes/100 WBC (Bld) 12.7 % Low 20.0-40.0 [facility] Comment on above: Performed By: #### B MP3 #### [facility] [address], [place] MCH (RBC) [Entitic mass] 27.4 pg Normal 26.0-34.0 [facility] Comment on above: Performed By: #### B MP3 #### [facility] [address], [place] MCHC 31.8 % Low 32.0-36.0 [facility] Comment on above: Performed By: #### B MP3 #### [facility] [address] [place] [address] MCV (RBC) [Entitic vol] 86.2 fL Normal 79.0-98.0 [facility] Comment on above: Performed By: #### B MP3 #### [facility] [address] [place] [address] Monocytes (Bld) [#/Vol] 0.2 10*3/uL Normal 0.0-0.8 [facility] Comment on above: Performed By: #### B MP3 #### [facility] [address] [place] [address] Monocytes/100 WBC (Bld) 3.1 % Normal 2.0-10.0 [facility] Comment on above: Performed By: #### B MP3 #### [place] [address] [place] [address] Platelet mean volume (Bld) [Entitic vol] 9.3 fL Normal 7.4-10.4 [facility] Comment on above: Performed By: #### B MP3 #### [place] [address] [place] [address] Platelets (Bld) [#/Vol] 217 10*3/uL Normal 140-440 [facility] Comment on above: Performed By: #### B MP3 #### [place] [address] [place] [address] RBC (Bld) [#/Vol] 4.18 10*6/uL Normal 3.80-5.20 [facility] Comment on above: Performed By: #### B MP3 #### [place] [address] [place] [address] WBC (Bld) [#/Vol] 5.9 10*3/uL Normal 3.6-10.7 [facility] Comment on above: Performed By: #### B MP3 #### [place] [address] [place] [address] Op Noteon 11-17-2021 Op Note Operative Note Pre-operative Diagnosis: Left ankle infection and abscess ? Post-operative Diagnosis: Same ? Procedure: #1 Incision and drainage abscess Left ankle (Wound dimensions: Length proximal to distal: 8 cm, Width anterior to posterior: 2 cm, Depth: 3 cm #2 Application wound VAC, wound <50 sq cm left ankle ? Components used: VAC ? Anesthesia: General ? Surgeon: Jess ? Assistants: Adolfo Hebert ? Estimated Blood Loss: Minimal ? Complications: None ? Specimens: None ? Medications: Ancef 3 g IV ? Operative findings: The lateral ankle wound appeared to be grossly free of infection. Tissue was sent for culture analysis. The peroneus brevis was intact. No communication with the fibula, talus or calcaneus was found. A VAC dressing was placed in the wound with loose closure over the VAC sponge. ? History of present illness: Siobhan is a 61 y.o. female with a history significant for having undergone a left peroneus longus repair to the brevis. She developed an infection following that surgery and underwent 2 separate operative procedures for incision and drainage. After the second surgery the wound was closed. She failed to heal the wound and had continued drainage. Due to her failure to heal the wound site I recommended the above-mentioned procedure. Despite its risks she consented to proceed. ? Operative report: ? I met with Siobhan and her son in the preoperative area prior to the [...] to normal structures that can lead to mcfp problems of pain or dysfunction, wound healing complications, and late or chronic pain as a result of the surgical intervention. In addition potentially life threatening complications that can occur at the time of surgery and after surgery were discussed including but not limited to deep vein thrombosis, pulmonary embolism, myocardial infarction, stroke and . I initialed her Left lower extremity and signed her consent form. Siobhan was then brought to the operating room and placed in the supine position on the Operating Room table. Care was taken to identify and pad all bony prominences. A general anesthetic was then given by the anesthesia staff and an endotracheal tube was placed by the anesthesia staff. At all times during the operative procedure the patient's head neck and airway were protected by the anesthesia staff. Siobhan was then placed in a lateral decubitus position with the left side being up. Axillary roll was placed. Care was taken to identify and pad all bony prominences. A tourniquet was not utilized for the case. The Left lower extremity was then prepped and draped in the usual orthopedic sterile fashion. A surgical timeout was then performed with the patient's identification, the procedure to be performed being reviewed with the consent form, verification that the patient had received preoperative antibiotics, and verification of the correct surgical side. Everyone in the operating room stopped what they were doing in order to participate in the timeout. This timeout was performed by myself, the circulating room nurse and the anesthesia staff. The patient's ASA was verified by the nurse machine printer and the anesthesia staff. Fire risk was assessed. ? Incision and drainage of the wound site along the lateral ankle was performed. The previous lateral ankle incision was extended proximally and distally from the open wound site. All tissue within the open wound site was excisionally debrided. No gross purulence was found. The peroneus brevis was found to be intact with no signs of infection. The fibula was found to be infection free with an intact periosteum. The entire zone of infection was exposed. A combination of sharp excision utilizing a scalpel, rongeurs and curets were used to excise any nonviable or infected appearing skin, subcutaneous tissue and Peroneus longus tendon. Once an adequate debridement had been performed and I was comfortable that no additional debridement was necessary the tourniquet was released and any active bleeding was controlled using Bovie cautery. The wound was then thoroughly irrigated with copious amounts of sterile saline. ? At this point it was decided to place a VAC dressing within the wound. Black VAC sponge was utilized. The skin surrounding the wound was cleaned and dried and then [place]alon sponges were used to further prepare the skin and then the skin was covered with plastic dressing.. The piece of sponge that had been cut for the wound was placed within (more content not included)... Normal [facility] Absolute lymphocyte counton 11-14-2021 Lymphocytes Auto (Unsp spec) [#/Vol] 1.46 10*3/uL 0.83-4.51 [facility] Work Phone: Basophil percentageon 2021 Basophils/100 WBC (Bld) 0.6 % 0-1 [facility] Work Phone: Bilirubin [Mass/Vol] 0.40 mg/dL 0.20-1.00 [facility] Work Phone: Comment on above: For patients on eltr ombopag therapy, use of Dimension Liberal TBIL is not recommended. Chloride [Moles/Vol] 109 mmol/L 98-107 [facility] Work Phone: Eosinophils/100 WBC (Bld) 1.9 % 0-5 [facility] Work Phone: Glucose [Mass/Vol] 105 mg/dL 74-106 [facility] Work Phone: Comment on above: Fasting Glucose resu lt from 100 to 125 mg/dL suggests IMPAIRED HOMEOSTASIS per A.D.A. criteria. Neutrophils (Bld) [#/Vol] 4.2 10*3/uL 2.0-7.7 [facility] Work Phone: Neutrophils/100 WBC (Bld) 63.6 % 47-70 [facility] Work Phone: Potassium [Moles/Vol] 4.0 mmol/L 3.5-5.1 [facility] Work Phone: Protein [Mass/Vol] 6.7 g/dL 6.4-8.2 [facility] Work Phone: Sodium [Moles/Vol] 141 mmol/L 136-145 [facility] Work Phone: [phone] WBC (Bld) [#/Vol] 6.7 10*3/uL 4.4-11.0 [facility] Work Phone: [phone] Blood erythrocytes count (nu mber/volume)on 11-14-2021 RBC (Bld) [#/Vol] 4.30 10*6/uL 4.2-5.4 [facility] Work Phone: Blood hemoglobin measurement (mass/volume)on 11-14-2021 Hemoglobin (Bld) [Mass/Vol] 12.0 g/dL 12.0-15.0 [facility] Work Phone: Blood lymphocytes/100 leukoc yteson 11-14-2021 Lymphocytes/100 WBC (Bld) 21.9 % 19-41 [facility] Work Phone: Blood monocytes/100 leukocyt eson 11-14-2021 Monocytes/100 WBC (Bld) 11.4 % 0-10 [facility] Work Phone: Blood platelet mean volumeon 11-14-2021 Platelet mean volume (Bld) [Entitic vol] 11.5 fL 6.2-12.0 [facility] Work Phone: Determination of erythrocyte mean corpuscular volume (MCV)on 11-14-2021 MCV (RBC) [Entitic vol] 87.0 fL 81-99 [facility] Work Phone: Erythrocyte sedimentation ra cristina 11-14-2021 ESR (Bld) [Velocity] 30 mm/h 0-30 [facility] Work [facility]: Hematocrit Auto (Bld) [Volum e fraction]on 11-14-2021 Hematocrit (Bld) [Volume fraction] 37.4 % 37-47 [facility] Work Phone: Laboratory - Chemistry and C hemistry - challengeon 11-14-2021 ALP [Catalytic activity/Vol] 122 U/L 45-117 [facility] Work Phone: ALT [Catalytic activity/Vol] 17 U/L 13-56 [facility] Work Phone: CO2 [Moles/Vol] 29.0 mmol/L 21.0-32.0 [facility] Work Phone: Globulin (S) [Mass/Vol] 3.6 g/dL 2.2-4.2 [facility] Work Phone: Urea nitrogen/Creatinine [Mass ratio] 20.9 mg/mg 10-20 [facility] Work Phone: Laboratory - Hematology and Cell countson 11-14-2021 Erythrocyte distribution width (RBC) [Entitic vol] 49.8 fL 35.1-43.9 [facility] Work Phone: Erythrocyte distribution width (RBC) [Ratio] 15.8 % 11.6-14.6 [facility] Work Phone: Immature granulocytes/100 WBC (Bld) 0.600 % 0.0-0.9 [facility] Work Phone: Comment on above: IG% - Immature Granu locytes (promyelocytes, myelocytes and metamyelocytes) > 1% indicates that a LEFT SHIFT is Present. MCH (RBC) [Entitic mass] 27.9 pg 27.0-32.0 [facility] Work Phone: Nucleated RBC/100 WBC (Bld) [Ratio] 0 % 0-5 [facility] Work Phone: MCHC Auto (RBC) [Mass/Vol]on 11-14-2021 MCHC (RBC) [Mass/Vol] 32.1 g/dL 32-36 [facility] Work Phone: No Panel Informationon 11-14 Estimated GFR (MDRD) Amer 106 mL/min >60 [facility] Work Phone: Comment on above: GFR Calc Estimated GFR (MDRD) Non-Af Amer 88 mL/min >60 [facility] Work Phone: Comment on above: Non- GFR Calc Platelets bldon 11-14-2021 Platelets (Bld) [#/Vol] 256 10*3/uL 150-450 [facility] Work Phone: Serum or plasma C reactive p rotein measurement (mass/volume)on 11-14-2021 CRP [Mass/Vol] 7.77 mg/L 0.0-3.0 [facility] Work Phone: Comment on above: C-Reactive Protein ( CRP) provides useful information for thediagnosis, therapy and monitoring of inflammatory processesand associated diseases. For the evaluation of Relative Riskfor Cardiovascular Disease, a High Sensitivity CRP (HSCRP)should be ordered. Serum or plasma albumin merissa urement (mass/volume)on 11-14-2021 Albumin [Mass/Vol] 3.1 g/dL 3.2-5.0 [facility] Work Phone: Serum or plasma albumin/glob ulin mass ratioon 11-14-2021 Albumin/Globulin [Mass ratio] 0.9 {ratio} 0.9-2.4 [facility] Work Phone: Serum or plasma calcium merissa urement (mass/volume)on 11-14-2021 Calcium [Mass/Vol] 8.9 mg/dL 8.5-10.1 [facility] Work Phone: Serum or plasma creatinine m easurement (mass/volume)on 11-14-2021 Creatinine [Mass/Vol] 0.72 mg/dL 0.55-1.02 [facility] Work Phone: Comment on above: The validity of the calculated GFR & GFRAA in patients over 70 years has not been determined. Clinical correlation is essential. Serum or plasma urea nitroge n measurement (mass/volume)on 11-14-2021 Urea nitrogen [Mass/Vol] 15 mg/dL 7-18 [facility] Work Phone: Thin prep Papanicolaou smear with manual screeningon 11-14-2021 Thin prep Papanicolaou smear with manual screening 19 U/L 15-37 [facility] Work Phone: Thin prep Papanicolaou smear with manual screening 3 5-15 [facility] Work Phone: CR Chest Portableon 11-13-19 22 CR Chest Portable [facility]: [id number] Radiology ACCESSION EXAM DATE/TIME PROCEDURE ORDERING PROVIDER [id number] 11/13/2021 16:25 EST CR Chest Portable ANNE CHRISTIE JOHN M CPT code 74517 Reason For Exam (CR Chest Portable) eval picc line placement Report EXAMINATION: XR chest AP. EXAM DATE and TIME: 11/13/2021 3:58 PM EST INDICATION: eval picc line placement ADDITIONAL INFORMATION: 61-year-old female presents for assessment status post PICC line insertion COMPARISON: Chest radiograph TECHNIQUE: Frontal view of the chest was obtained. FINDINGS: Lines/support devices: A left arm PICC terminates in the SVC, unchanged from the most recent prior study. There is partial visualization of an epidural spinal stimulator. Cardiomediastinal silhouette: Within normal limits. Lungs/pleura: There is mild pulmonary vascular congestion. No focal consolidation, pleural effusion or pneumothorax. Osseous structures: No acute osseous abnormality is demonstrated. Other findings: None. IMPRESSION: Unchanged positioning of the left arm PICC, which terminates in the SVC. Otherwise, there is mild pulmonary vascular congestion. Report Dictated on Final Dictated: 11/13/2021 4:07 pm Dictating Physician: MD KRISHNAMURTHY CHRISTOPHER Signed Date and Time: 11/13/2021 4:14 pm Signed by: MD KRISHNAMURTHY CHRISTOPHER Transcribed Date and Time: 11/13/2021 4:08 Normal [facility] ED Provider Noteon ED Provider Note [facility] EMERGENCY DEPT EMERGENCY DEPARTMENT ENCOUNTER Pt Name: Siobhan Haas Birthdate 1960 Date of evaluation: 11/13/2021 Provider: CARMELA [place] CHIEF COMPLAINT Chief Complaint Patient presents with ? Vascular Access Problem Pt is unable to flush or get blood return in PICC line pt was here earlier today for same issue. Pt gets antibiotics every 8 hours and is due now. HISTORY OF PRESENT ILLNESS (Location/Symptom, Timing/Onset, Context/Setting, Quality,Duration, Modifying Factors, Severity) Note limiting factors. HPI I have seen this patient With supervising physician Does this patient come from an ECF, SNF, Rehab, Intermediate or other Congregate setting: no (If yes to above patient needs a Covid-19 test) Siobhan Haas is a 61 y.o. female who presents to the emergency department for chief complaint of having hard time drawing blood or flushing from her PICC line which is for an infection within her left leg. Similar complaints yesterday which was resolved with Cathflo. Patient denies any fever, chills, nausea, vomiting, diarrhea, chest pain, shortness of breath. No other complaints at this time This patient was seen during a global health emergency during the COVID-19 pandemic and its resultant significant effects on the delivery of emergency care. This includes but is not limited to the following: significant ED boarding, hospital overcrowding, limited bed availability (floor and especially ICU), limited resources (personnel, supplies, testing, services, etc). While every and all efforts are made to deliver the highest quality care in a prompt way, there may or may not be significant delays in care as a result. I wore a N95 during the entire visit REVIEW OF SYSTEMS (2+ for level 4; 10+ for level 5) Review of Systems Constitutional: Negative for chills, fatigue and fever. HENT: Negative for congestion, sinus pain, sore throat and voice change. Eyes: Negative. Respiratory: Negative for cough, shortness of breath and wheezing. Cardiovascular: Negative for chest pain, palpitations and leg swelling. Gastrointestinal: Negative for abdominal distention, abdominal pain, blood in stool, constipation, diarrhea, nausea and vomiting. Endocrine: Negative. Genitourinary: Negative for dysuria, frequency and hematuria. Musculoskeletal: Negative for arthralgias and neck stiffness. Skin: Negative for color change, pallor, rash and wound. Neurological: Negative for dizziness, weakness, light-headedness, numbness and headaches. Psychiatric/Behavioral: Negative. PAST MEDICAL HISTORY Past Medical History: Diagnosis Date ? 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 Asthma ? Cellulitis ? Constipation ? Depression ? Fibromyalgia ? GERD (gastroesophageal reflux disease) ? Hx of right BKA ([facility]) ? Hypertension ? Morbidly obese ([facility]) 02/03/2019 BMI 50.52 ? On home O2 ? FAY treated with BiPAP ? Osteoarthritis ? Osteomyelitis of right foot ([facility]) SCHEDULED FOR THE SURGERY ON 02/11/2019 ? Seasonal allergies ? Shortness of breath ? URSULA (stress urinary incontinence, female) ? Vertigo SURGICAL HISTORY Past Surgical History: Procedure Laterality Date ? ABDOMINOPLASTY ? ABSCESS DRAINAGE Right 08/07/2020 I&D of right BKA hematoma ? BREAST SURGERY 2006 and abdomin removal for excess ? COLONOSCOPY ? DEBRIDEMENT Left 10/28/2021 irrigation and debridment LLE ? ENDOSCOPY, COLON, DIAGNOSTIC ? FOOT SURGERY Right 2018 IN [place] ? FOOT SURGERY Right 02/11/2019 ? FOOT SURGERY Right 04/08/2019 I&D right foot with antibiotic spacer ? FOOT SURGERY Right 04/24/2019 I&D;, external fixator ? FOOT SURGERY Left 08/04/2021 peroneus longus tenolysis - Dr Gamino ? HYSTERECTOMY 1997 ? INCONTINENCE SURGERY 11/15/2015 synthetic mid urethral sling,cystoscopy ? JOINT REPLACEMENT ? LIPOMA RESECTION Right 2015 shoulder ? ORTHOPEDIC SURGERY Right 04/01/2019 I&D with removal hardware and antibiotic spacer placed ? OTHER SURGICAL HISTORY 09/21/2016 INTERSTIM STAGE II, COMPLEX ANALYSIS OF NEUROSTIMULATOR ? OTHER SURGICAL HISTORY NERVE BLOCKS FROM PAIN MANAGEMENT ? OTHER SURGICAL HISTORY Right 03/07/2019 debridement of right foot ? OTHER SURGICAL HISTORY Right 04/02/2019 R foot skin graft/flap, wound debridement/Wound vac removal ? OTHER SURGICAL HISTORY Right 04/22/2019 right foot I and D ? OTHER SURGICAL HISTORY Right 05/06/2019 Right Below Knee Amputation (CPT 21365), #2 Excisional debridement right iliac crest (wound 7 cm length, 3 cm width, 7 cm depth) ? OTHER SURGICAL HISTORY 07/27/2020 Excision of scar tissue, neuroma RIGHT below knee amputation ? OTHER SURGICAL HISTORY 10/27/2021 Irrigation and debridement of left lower extremity ? TONSILLECTOMY ? TOTAL KNEE ARTHROPLASTY Left 2012 ARTHROSCOPY FIRST AND KNEE REPLACED ? WISDOM TOOTH EXTRACTION CURRENT MEDICATIONS Discharg (more content not included)... Normal [facility] ED Provider Note Emergency Department Encounter [facility] EMERGENCY DEPT Patient: Siobhan Haas : 1960 Date of Evaluation: 11/13/2021 ED Supervising Physician: Edy Ramires MD I independently examined and evaluated Siobhan Haas. In brief, Siobhan Haas is a 61 y.o. female that presents to the emergency department stating that she is unable to administer her IV through PICC line. Patient had similar issue last night. Exam: GENERAL APPEARANCE: This patient is in no acute distress. Awake and alert. VITAL SIGNS: As per the triage vitals HEENT: Normocephalic, atraumatic. Extraocular muscles are intact. NECK: Supple LUNGS: No stridor. Breathing comfortably. MUSCULOSKELETAL: Active range of motion. There is no clubbing, cyanosis, or edema. NEUROLOGICAL: Awake, alert and oriented x 3. PSYCH: Normal mood and affect. DERMATOLOGIC: No petechiae, rashes, or ecchymoses. Skin has normal temperature. There's no cyanosis, erythema, pallor or edema. Brief ED course/MDM: We will attempt to solve the PICC obstruction. If unsuccessful will place in the hospital for PICC line tomorrow. All diagnostic, treatment, and disposition decisions were made by myself in conjunction with the resident/MELISSA. For all further details of the patient's emergency department visit, please see their documentation. This will serve as my supervisory note and shared attestation. I did perform a substantive of portion of the visit including all aspects of the medical decision making. (Please note that portions of this note may have been completed with a voice recognition program. Efforts were made to edit the dictations but occasionally words are mis-transcribed.) Edy Ramires MD Acute Care [facility] Edy Ramires MD 11/13/21 [id number] [facility] ED Provider Note [facility] EMERGENCY DEPT EMERGENCY DEPARTMENT ENCOUNTER Pt Name: Siobhan Haas Birthdate 1960 Date of evaluation: 11/13/2021 Provider: MITCH Silvestre CNP Due to concern for COVID-19 in the healthcare setting I wore protective eyewear, N95 respirator and surgical mask for the entirety of the encounter. CHIEF COMPLAINT Chief Complaint Patient presents with ? Vascular Access Problem PICC would not flush at home for 11 pm med. HISTORY OF PRESENT ILLNESS (Location/Symptom, Timing/Onset,Context/Settin g, Quality, Duration, Modifying Factors, Severity) Note limiting factors. HPI Siobhan Haas is a 61 y.o. female who presents to the emergency department for evaluation of complications with a PICC line. Patient has a left upper arm PICC line for antibiotic infusion for a diabetic wound of her left lower extremity. This evening she was unable to flush this when she was trying to set up for antibiotic infusion. She has no other complaints or concerns. Nursing Notes were reviewed. REVIEW OFSYSTEMS (2+ for level 4; 10+ level 5) Review of Systems Constitutional: Negative. Negative for chills, diaphoresis and fever. HENT: Negative. Eyes: Negative. Respiratory: Negative. Negative for cough, chest tightness and shortness of breath. Cardiovascular: Negative. Negative for chest pain. Gastrointestinal: Negative. Negative for abdominal pain, constipation, diarrhea and vomiting. Genitourinary: Negative. Negative for dysuria. Musculoskeletal: Negative. Skin: Negative. Neurological: Negative. Negative for dizziness and light-headedness. Psychiatric/Behavioral: Negative. All other systems reviewed and are negative except as noted in history of present illness PAST MEDICAL HISTORY Past Medical History: Diagnosis Date ? 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 Asthma ? Cellulitis ? Constipation ? Depression ? Fibromyalgia ? GERD (gastroesophageal reflux disease) ? Hx of right BKA ([facility]) ? Hypertension ? Morbidly obese ([facility]) 02/03/2019 BMI 50.52 ? On home O2 ? FAY treated with BiPAP ? Osteoarthritis ? Osteomyelitis of right foot ([facility]) SCHEDULED FOR THE SURGERY ON 02/11/2019 ? Seasonal allergies ? Shortness of breath ? URSULA (stress urinary incontinence, female) ? Vertigo SURGICAL HISTORY Past Surgical History: Procedure Laterality Date ? ABDOMINOPLASTY ? ABSCESS DRAINAGE Right 08/07/2020 I&D of right BKA hematoma ? BREAST SURGERY 2006 and abdomin removal for excess ? COLONOSCOPY ? DEBRIDEMENT Left 10/28/2021 irrigation and debridment LLE ? ENDOSCOPY, COLON, DIAGNOSTIC ? FOOT SURGERY Right 2019 IN [place] ? FOOT SURGERY Right 02/11/2019 ? FOOT SURGERY Right 04/08/2019 I&D right foot with antibiotic spacer ? FOOT SURGERY Right 04/24/2019 I&D;, external fixator ? FOOT SURGERY Left 08/04/2021 peroneus longus tenolysis - Dr Gamino ? HYSTERECTOMY 1997 ? INCONTINENCE SURGERY 11/15/2015 synthetic mid urethral sling,cystoscopy ? JOINT REPLACEMENT ? LIPOMA RESECTION Right 2014 shoulder ? ORTHOPEDIC SURGERY Right 04/01/2019 I&D with removal hardware and antibiotic spacer placed ? OTHER SURGICAL HISTORY 09/21/2016 INTERSTIM STAGE II, COMPLEX ANALYSIS OF NEUROSTIMULATOR ? OTHER SURGICAL HISTORY NERVE BLOCKS FROM PAIN MANAGEMENT ? OTHER SURGICAL HISTORY Right 03/07/2019 debridement of right foot ? OTHER SURGICAL HISTORY Right 04/02/2019 R foot skin graft/flap, wound debridement/Wound vac removal ? OTHER SURGICAL HISTORY Right 04/22/2019 right foot I and D ? OTHER SURGICAL HISTORY Right 05/06/2019 Right Below Knee Amputation (CPT 30308), #2 Excisional debridement right iliac crest (wound 7 cm length, 3 cm width, 7 cm depth) ? OTHER SURGICAL HISTORY 07/27/2020 Excision of scar tissue, neuroma RIGHT below knee amputation ? OTHER SURGICAL HISTORY 10/27/2021 Irrigation and debridement of left lower extremity ? TONSILLECTOMY ? TOTAL KNEE ARTHROPLASTY Left 2012 ARTHROSCOPY FIRST AND KNEE REPLACED ? WISDOM TOOTH EXTRACTION CURRENT MEDICATIONS Previous Medications AMITRIPTYLINE (ELAVIL) 25 MG TABLET Take 50 mg by mouth nightly ASPIRIN 81 MG CHEWABLE TABLET Take 1 tablet by mouth daily CEFAZOLIN SODIUM IV Infuse 2 g intravenously every 8 hours CITALOPRAM (CELEXA) 40 MG TABLET Take 40 mg by mouth daily CYCLOBENZAPRINE (FLEXERIL) 10 MG TABLET nightly FLUTICASONE (FLONASE) 50 MCG/ACT NASAL SPRAY 1 spray as needed FUROSEMIDE (LASIX) 40 MG TABLET See Instructions, TAKE 1 TABLET TWICE DAILY NEEDED, # 90 tab(s), 2 Refill(s), Pharmacy: [facility], 166, cm, 07/01/20 13:34:00 EDT, Height, kg, 07/01/20 13:34:00 EDT, Dosing Weight GABAPENTIN (NEURONTIN) 600 MG TABLET Take 1 tablet by mouth 3 times daily for 31 days. LORATADINE (CLARITIN) 10 MG TABLET Take 10 mg by mouth daily MONTELUKAST (SINGULAIR) 10 MG TABLET Take 10 mg by mouth nightly OMEPR (more content not included)... Normal [facility] Absolute lymphocyte counton 11-07-2021 Lymphocytes Auto (Unsp spec) [#/Vol] 1.68 10*3/uL 0.83-4.51 [facility] Work Phone: Basophil percentageon 2021 Basophils/100 WBC (Bld) 0.8 % 0-1 [facility] Work Phone: Bilirubin [Mass/Vol] 0.20 mg/dL 0.20-1.00 [facility] Work Phone: Comment on above: For patients on eltr ombopag therapy, use of Dimension Liberal TBIL is not recommended. Chloride [Moles/Vol] 108 mmol/L 98-107 [facility] Work Phone: Eosinophils/100 WBC (Bld) 1.3 % 0-5 [facility] Work Phone: Glucose [Mass/Vol] 102 mg/dL 74-106 [facility] Work Phone: Comment on above: Fasting Glucose resu lt from 100 to 125 mg/dL suggests IMPAIRED HOMEOSTASIS per A.D.A. criteria. Neutrophils (Bld) [#/Vol] 4.9 10*3/uL 2.0-7.7 [facility] Work Phone: [phone] Neutrophils/100 WBC (Bld) 63.3 % 47-70 [facility] Work Phone: Potassium [Moles/Vol] 4.6 mmol/L 3.5-5.1 [facility] Work Phone: Protein [Mass/Vol] 6.8 g/dL 6.4-8.2 [facility] Work Phone: Sodium [Moles/Vol] 141 mmol/L 136-145 [facility] Work Phone: WBC (Bld) [#/Vol] 7.8 10*3/uL 4.4-11.0 [facility] Work Phone: Blood erythrocytes count (nu mber/volume)on 11-07-2021 RBC (Bld) [#/Vol] 4.34 10*6/uL 4.2-5.4 [facility] Work Phone: Blood hemoglobin measurement (mass/volume)on 11-07-2021 Hemoglobin (Bld) [Mass/Vol] 12.5 g/dL 12.0-15.0 [facility] Work Phone: Blood lymphocytes/100 leukoc yteson 11-07-2021 Lymphocytes/100 WBC (Bld) 21.6 % 19-41 [facility] Work Phone: Blood monocytes/100 leukocyt eson 11-07-2021 Monocytes/100 WBC (Bld) 11.7 % 0-10 [facility] Work Phone: Blood platelet mean volumeon 11-07-2021 Platelet mean volume (Bld) [Entitic vol] 11.2 fL 6.2-12.0 [facility] Work Phone: Determination of erythrocyte mean corpuscular volume (MCV)on 11-07-2021 MCV (RBC) [Entitic vol] 87.3 fL 81-99 [facility] Work Phone: Erythrocyte sedimentation ra cristina 11-07-2021 ESR (Bld) [Velocity] 37 mm/h 0-30 [facility] Work Phone: Hematocrit Auto (Bld) [Volum e fraction]on 11-07-2021 Hematocrit (Bld) [Volume fraction] 37.9 % 37-47 [facility] Work Phone: Laboratory - Chemistry and C hemistry - challengeon 11-07-2021 ALP [Catalytic activity/Vol] 125 U/L 45-117 [facility] Work Phone: ALT [Catalytic activity/Vol] 16 U/L 13-56 [facility] Work Phone: CO2 [Moles/Vol] 29.0 mmol/L 21.0-32.0 [facility] Work Phone: Globulin (S) [Mass/Vol] 3.7 g/dL 2.2-4.2 [facility] Work Phone: Urea nitrogen/Creatinine [Mass ratio] 23.0 mg/mg 10-20 [facility] Work Phone: Laboratory - Hematology and Cell countson 11-07-2021 Erythrocyte distribution width (RBC) [Entitic vol] 50.2 fL 35.1-43.9 [facility] Work Phone: Erythrocyte distribution width (RBC) [Ratio] 15.7 % 11.6-14.6 [facility] Work Phone: Immature granulocytes/100 WBC (Bld) 1.300 % 0.0-0.9 [facility] Work Phone: Comment on above: IG% - Immature Granu locytes (promyelocytes, myelocytes and metamyelocytes) > 1% indicates that a LEFT SHIFT is Present. MCH (RBC) [Entitic mass] 28.8 pg 27.0-32.0 [facility] Work Phone: Nucleated RBC/100 WBC (Bld) [Ratio] 0 % 0-5 [facility] Work Phone: MCHC Auto (RBC) [Mass/Vol]on 11-07-2021 MCHC (RBC) [Mass/Vol] 33.0 g/dL 32-36 [facility] Work Phone: No Panel Informationon 11-07 Estimated GFR (MDRD) Amer 90 mL/min >60 [facility] Work Phone: Comment on above: GFR Calc Estimated GFR (MDRD) Non-Af Amer 74 mL/min >60 [facility] Work Phone: Comment on above: Non- GFR Calc Platelets bldon 11-07-2021 Platelets (Bld) [#/Vol] 314 10*3/uL 150-450 [facility] Work Phone: Serum or plasma C reactive p rotein measurement (mass/volume)on 11-07-2021 CRP [Mass/Vol] 4.89 mg/L 0.0-3.0 [facility] Work Phone: Comment on above: C-Reactive Protein ( CRP) provides useful information for thediagnosis, therapy and monitoring of inflammatory processesand associated diseases. For the evaluation of Relative Riskfor Cardiovascular Disease, a High Sensitivity CRP (HSCRP)should be ordered. Serum or plasma albumin merissa urement (mass/volume)on 11-07-2021 Albumin [Mass/Vol] 3.1 g/dL 3.2-5.0 [facility] Work Phone: Serum or plasma albumin/glob ulin mass ratioon 11-07-2021 Albumin/Globulin [Mass ratio] 0.8 {ratio} 0.9-2.4 [facility] Work Phone: Serum or plasma calcium merissa urement (mass/volume)on 11-07-2021 Calcium [Mass/Vol] 8.7 mg/dL 8.5-10.1 [facility] Work Phone: Serum or plasma creatinine m easurement (mass/volume)on 11-07-2021 Creatinine [Mass/Vol] 0.83 mg/dL 0.55-1.02 [facility] Work Phone: Comment on above: The validity of the calculated GFR & GFRAA in patients over 70 years has not been determined. Clinical correlation is essential. Serum or plasma urea nitroge n measurement (mass/volume)on 11-07-2021 Urea nitrogen [Mass/Vol] 19 mg/dL 7-18 [facility] Work Phone: Thin prep Papanicolaou smear with manual screeningon 11-07-2021 Thin prep Papanicolaou smear with manual screening 15 U/L 15-37 [facility] Work Phone: Thin prep Papanicolaou smear with manual screening 4 5-15 [facility] Work Phone: Basic Metabolic Panelon Calcium [Mass/Vol] 8.5 mg/dL Normal 8.4-10.4 [facility] Comment on above: Performed By: #### H EMOG #### [facility] [address] [place], [place] Glucose [Mass/Vol] 95 mg/dL Normal 70-100 [facility] Comment on above: Performed By: #### H EMOG #### [facility] [address] [place], [place] Urea nitrogen [Mass/Vol] 14 mg/dL Normal 9-20 [facility] Comment on above: Performed By: #### H EMOG #### [facility] [address] [place] [id number] Anion gap [Moles/Vol] 3 mmol/L Normal 3-13 [facility] Comment on above: Performed By: #### H EMOG #### [facility] [address] [place], [place] CO2 [Moles/Vol] 29 mmol/L Normal 22-30 [facility] Comment on above: Performed By: #### H EMOG #### [address] Creatinine [Mass/Vol] 0.74 mg/dL Normal 0.52-1.25 [facility] Comment on above: Performed By: #### H EMOG #### [place] [address] [place], [place] GFR/1.73 sq M.predicted among blacks MDRD (S/P/Bld) [Vol rate/Area] mL/min/{1.73_m2} Normal >60 [facility] Comment on above: Performed By: #### H EMOG #### [address] GFR/1.73 sq M.predicted among non-blacks MDRD (S/P/Bld) [Vol rate/Area] 86.7 mL/min/{1.73_m2} Normal >60 [facility] Comment on above: Result Comment: KDIG O guidelines provide the following GFR categories: Stage GFR(ml/min/1.73 m2) Terms G1 >=90 Normal or high G2 60-89 Mildly decreased* G3a 45-59 Mildly to moderately decreased G3b 30-44 Moderately to severely decreased G4 15-29 Severely decreased G5 <15 Kidney failure *Relative to young adult level. In the absence of evidence of kidney damage, neither GFR category G1 nor G2 fulfill the criteria for CKD. The CKD-EPI equation is validated in individuals 18 years of age and older. Currently the best equation for estimating glomerular filtration rate (GFR) from serum creatinine in children is the Bedside Bolton equation. It is less accurate in patients with extremes of muscle mass, restriction of dietary protein, ingestion of creatine, extra-renal metabolism of creatinine, or treatment with medications that affect renal tubular creatinine secretion. Performed By: #### H EMOG #### [address] Chloride [Moles/Vol] 103 mmol/L Normal 98-107 [facility] Comment on above: Performed By: #### H EMOG #### [address] [place] [address] [place] Potassium [Moles/Vol] 4.2 mmol/L Normal 3.5-5.1 [facility] Comment on above: Performed By: #### H EMOG #### [address] [address] [address] [place], [place] Sodium [Moles/Vol] 135 mmol/L Normal 135-145 [facility] Comment on above: Performed By: #### H EMOG #### [address] [address] [address] [place], [place] Hemogram w/ Autodiffon 11-01 Erythrocyte distribution width (RBC) [Ratio] 16.2 % High 11.5-14.5 [facility] Comment on above: Performed By: #### H EMOG #### [address] [address] [place] Hematocrit (Bld) [Volume fraction] 33.3 % Low 35.0-47.0 [facility] Comment on above: Performed By: #### H EMOG #### [address] [address] [address] [place], [place] Hemoglobin (Bld) [Mass/Vol] 10.8 g/dL Low 11.7-16.0 [facility] Comment on above: Performed By: #### H EMOG #### [address] [address] [address] [place], [place] MCH (RBC) [Entitic mass] 27.8 pg Normal 26.0-34.0 [facility] Comment on above: Performed By: #### H EMOG #### [address] [place] [address] [address] [place], [place] MCHC 32.5 % Normal 32.0-36.0 [facility] Comment on above: Performed By: #### H EMOG #### [address] MCV (RBC) [Entitic vol] 85.7 fL Normal 79.0-98.0 [facility] Comment on above: Performed By: #### H EMOG #### [address] [place] [address] [place] Platelet mean volume (Bld) [Entitic vol] 8.1 fL Normal 7.4-10.4 [facility] Comment on above: Performed By: #### H EMOG #### [address] [place] [address] [address] [place], [place] Platelets (Bld) [#/Vol] 273 10*3/uL Normal 140-440 [facility] Comment on above: Performed By: #### H EMOG #### [address] [address] [address] [place], [place] RBC (Bld) [#/Vol] 3.88 10*6/uL Normal 3.80-5.20 [facility] Comment on above: Performed By: #### H EMOG #### [address] [place] [address] [address] [place], [place] WBC (Bld) [#/Vol] 7.6 10*3/uL Normal 3.6-10.7 [facility] Comment on above: Performed By: #### H EMOG #### [address] [place] [address] [address] [place], [place] Manual Diffon 11-01-2021 Abs Eosin Cnt 0.2 10*3/uL Normal 0.0-0.5 [facility] Comment on above: Performed By: #### H EMOG #### [address] [place] [address] [address] [place], [place] Abs Lymph Cnt 1.7 10*3/uL Normal 1.1-4.5 [facility] Comment on above: Performed By: #### H EMOG #### [address] [place] [address] [address] [place], [place] Abs Monocyte Cnt 0.8 10*3/uL Normal 0.2-1.1 [facility] Comment on above: Performed By: #### H EMOG #### [address] [place], [place] Abs Neutrophile Cnt 4.7 10*3/uL Normal 2.2-8.2 [facility] Comment on above: Performed By: #### H EMOG #### [address] [place] [address] [address] [place], [place] Bands 1 % Normal 0-3 [facility] Comment on above: Performed By: #### H EMOG #### [facility] [address] [place], [place] Eosinophils 3 % Normal 1-6 [facility] Comment on above: Performed By: #### H EMOG #### [facility] [address] [place], [place] Lymphocytes 22 % Normal 20-40 [facility] Comment on above: Performed By: #### H EMOG #### [facility] [address] [place], [place] Metamyelocytes 2 % Abnormal <1 [facility] Comment on above: Performed By: #### H EMOG #### [address] [place] [address] [address] [place], [place] Monocytes 10 % Normal 2-10 [facility] Comment on above: Performed By: #### H EMOG #### [address] [place] [address] [address] [place], [place] Myelocytes 1 % Abnormal <1 [facility] Comment on above: Performed By: #### H EMOG #### [address] [place] [address] [address] [place], [place] Ovalocytes Slight Normal [facility] Comment on above: Performed By: #### H EMOG #### [address] [place] [address] [address] [place], [place] Poikilocytosis Slight Normal [facility] Comment on above: Performed By: #### H EMOG #### [address] [place] [address] [address] [place], [place] RBC Morphology ABNORMAL Normal [facility] Comment on above: Performed By: #### H EMOG #### [address] [place] [address] [address] [place], [place] Seg Neutrophils 61 % Normal 40-80 [facility] Comment on above: Performed By: #### H EMOG #### [address] [place] [address] [address] [place], [place] Abs Baso Cnt 0.0 10*3/uL Normal 0.0-0.2 [facility] Comment on above: Performed By: #### H EMOG #### [address] [place] [address] [address] [place], [place] Basophils 0 % Normal 0-2 [facility] Comment on above: Performed By: #### H EMOG #### [facility] [address] [place], [place] Cells counted 100 Normal [facility] Comment on above: Performed By: #### H EMOG #### [address] [place] [address] [address] [place], [place] Basic Metabolic Panelon 01-3 Anion gap [Moles/Vol] 3 mmol/L Normal 3-13 [facility] Comment on above: Performed By: #### B MP3, HEMDF #### [address] [place] [address] [address] [place], [place] Calcium [Mass/Vol] 8.7 mg/dL Normal 8.4-10.4 [facility] Comment on above: Performed By: #### B MP3, HEMDF #### [address] [place] [address] [address] [place], [place] CO2 [Moles/Vol] 29 mmol/L Normal 22-30 [facility] Comment on above: Performed By: #### B MP3, HEMDF #### [address] [place] [address] [address] [place], [place] Creatinine [Mass/Vol] 0.88 mg/dL Normal 0.52-1.25 [facility] Comment on above: Performed By: #### B MP3, HEMDF #### [address] [place] [address] [address] [place], [place] GFR/1.73 sq M.predicted among blacks MDRD (S/P/Bld) [Vol rate/Area] 81.5 mL/min/{1.73_m2} Normal >60 [facility] Comment on above: Performed By: #### B MP3, HEMDF #### [facility] [address] [place], [place] GFR/1.73 sq M.predicted among non-blacks MDRD (S/P/Bld) [Vol rate/Area] 70.3 mL/min/{1.73_m2} Normal >60 [facility] Comment on above: Result Comment: KDIG O guidelines provide the following GFR categories: Stage GFR(ml/min/1.73 m2) Terms G1 >=90 Normal or high G2 60-89 Mildly decreased* G3a 45-59 Mildly to moderately decreased G3b 30-44 Moderately to severely decreased G4 15-29 Severely decreased G5 <15 Kidney failure *Relative to young adult level. In the absence of evidence of kidney damage, neither GFR category G1 nor G2 fulfill the criteria for CKD. The CKD-EPI equation is validated in individuals 18 years of age and older. Currently the best equation for estimating glomerular filtration rate (GFR) from serum creatinine in children is the Bedside Bolton equation. It is less accurate in patients with extremes of muscle mass, restriction of dietary protein, ingestion of creatine, extra-renal metabolism of creatinine, or treatment with medications that affect renal tubular creatinine secretion. Performed By: #### B MP3, HEMDF #### [place] [address] [address] [place], [place] Glucose [Mass/Vol] 96 mg/dL Normal 70-100 [facility] Comment on above: Performed By: #### B MP3, HEMDF #### [place] [address] [address] [place], [place] Urea nitrogen [Mass/Vol] 17 mg/dL Normal 9-20 [facility] Comment on above: Performed By: #### B MP3, HEMDF #### [place] [address] [address] [place], [place] Chloride [Moles/Vol] 103 mmol/L Normal 98-107 [facility] Comment on above: Performed By: #### B MP3, HEMDF #### [place] [address] [address] [place], [place] Potassium [Moles/Vol] 4.0 mmol/L Normal 3.5-5.1 [facility] Comment on above: Performed By: #### B MP3, HEMDF #### [place] [address] [address] [place], [place] Sodium [Moles/Vol] 135 mmol/L Normal 135-145 [facility] Comment on above: Performed By: #### B MP3, HEMDF #### [place] [address] [address] [place], [place] Hemogram w/ Autodiffon 10-31 Erythrocyte distribution width (RBC) [Ratio] 16.0 % High 11.5-14.5 [facility] Comment on above: Performed By: #### B MP3, HEMDF #### [facility] [address] [place], [place] Hematocrit (Bld) [Volume fraction] 35.0 % Normal 35.0-47.0 [facility] Comment on above: Performed By: #### B MP3, HEMDF #### [facility] [address] [place], [place] Hemoglobin (Bld) [Mass/Vol] 11.2 g/dL Low 11.7-16.0 [facility] Comment on above: Performed By: #### B MP3, HEMDF #### [place] [address] [address] [place], [place] MCH (RBC) [Entitic mass] 27.6 pg Normal 26.0-34.0 [facility] Comment on above: Performed By: #### B MP3, HEMDF #### [facility] [address] [place], [place] MCHC 31.9 % Low 32.0-36.0 [facility] Comment on above: Performed By: #### B MP3, HEMDF #### [place] [address] [address] [place], [place] MCV (RBC) [Entitic vol] 86.6 fL Normal 79.0-98.0 [facility] Comment on above: Performed By: #### B MP3, HEMDF #### [facility] [address] [place], [place] Platelet mean volume (Bld) [Entitic vol] 8.3 fL Normal 7.4-10.4 [facility] Comment on above: Performed By: #### B MP3, HEMDF #### [facility] [address] [place], [place] Platelets (Bld) [#/Vol] 278 10*3/uL Normal 140-440 [facility] Comment on above: Performed By: #### B MP3, HEMDF #### [facility] [address] [place], [place] RBC (Bld) [#/Vol] 4.04 10*6/uL Normal 3.80-5.20 [facility] Comment on above: Performed By: #### B MP3, HEMDF #### [facility] [address] [place], [place] WBC (Bld) [#/Vol] 8.2 10*3/uL Normal 3.6-10.7 [facility] Comment on above: Performed By: #### B MP3, HEMDF #### [place] [address] [address] [place], [place] Manual Diffon 10-31-2021 Abs Baso Cnt 0.0 10*3/uL Normal 0.0-0.2 [facility] Comment on above: Performed By: #### B MP3, HEMDF #### [place] [address] [place], [place] Abs Eosin Cnt 0.2 10*3/uL Normal 0.0-0.5 [facility] Comment on above: Performed By: #### B MP3, HEMDF #### [place] [address] [address] [place], [place] Abs Lymph Cnt 2.0 10*3/uL Normal 1.1-4.5 [facility] Comment on above: Performed By: #### B MP3, HEMDF #### [place] [address] [address] [place], [place] Abs Monocyte Cnt 0.7 10*3/uL Normal 0.2-1.1 [facility] Comment on above: Performed By: #### B MP3, HEMDF #### [place] [address] [address] [place], [place] Abs Neutrophile Cnt 4.9 10*3/uL Normal 2.2-8.2 [facility] Comment on above: Performed By: #### B MP3, HEMDF #### [place] [address] [address] [place], [place] Bands 0 % Normal 0-3 [facility] Comment on above: Performed By: #### B MP3, HEMDF #### [facility] [address] [place], [place] Basophils 0 % Normal 0-2 [facility] Comment on above: Performed By: #### B MP3, HEMDF #### [facility] [address] [place], [place] Cells counted 100 Normal [facility] Comment on above: Performed By: #### B MP3, HEMDF #### [facility] [address] [place], [place] Eosinophils 3 % Normal 1-6 [facility] Comment on above: Performed By: #### B MP3, HEMDF #### [facility] [address] [place], [place] Lymphocytes 25 % Normal 20-40 [facility] Comment on above: Performed By: #### B MP3, HEMDF #### [facility] [address] [place], [place] Monocytes 9 % Normal 2-10 [facility] Comment on above: Performed By: #### B MP3, HEMDF #### [facility] [address] [place], [place] Myelocytes 2 % Abnormal <1 [facility] Comment on above: Performed By: #### B MP3, HEMDF #### [facility] [address] [place], [place] Ovalocytes Slight Normal [facility] Comment on above: Performed By: #### B MP3, HEMDF #### [facility] [address] [place], [place] Polychromasia Slight Normal [facility] Comment on above: Performed By: #### B MP3, HEMDF #### [facility] [address] [place], [place] Promyelocytes 1 % Abnormal <1 [facility] Comment on above: Performed By: #### B MP3, HEMDF #### [facility] [address] [place], [place] RBC Morphology ABNORMAL Normal [facility] Comment on above: Performed By: #### B MP3, HEMDF #### [facility] [address] [place], [place] Seg Neutrophils 60 % Normal 40-80 [facility] Comment on above: Performed By: #### B MP3, HEMDF #### [facility] [address] [place], [place] Tear Drop Forms Slight Normal [facility] Comment on above: Performed By: #### B MP3, HEMDF #### [facility] [address] [place], [place] Basic Metabolic Panelon 01-3 0-2021 Calcium [Mass/Vol] 9.0 mg/dL Normal 8.4-10.4 [facility] Comment on above: Performed By: #### B MP3, HEMDF #### [facility] [address] [place], [place] Anion gap [Moles/Vol] 2 mmol/L Low 3-13 [facility] Comment on above: Performed By: #### B MP3, HEMDF #### [facility] [address] [place], [place] CO2 [Moles/Vol] 30 mmol/L Normal 22-30 [facility] Comment on above: Performed By: #### B MP3, HEMDF #### [facility] [address] [place], [place] Creatinine [Mass/Vol] 0.88 mg/dL Normal 0.52-1.25 [facility] Comment on above: Performed By: #### B MP3, HEMDF #### [facility] [address] [place], [place] GFR/1.73 sq M.predicted among blacks MDRD (S/P/Bld) [Vol rate/Area] 81.5 mL/min/{1.73_m2} Normal >60 [facility] Comment on above: Performed By: #### B MP3, HEMDF #### [facility] [address] [place], [place] GFR/1.73 sq M.predicted among non-blacks MDRD (S/P/Bld) [Vol rate/Area] 70.3 mL/min/{1.73_m2} Normal >60 [facility] Comment on above: Result Comment: KDIG O guidelines provide the following GFR categories: Stage GFR(ml/min/1.73 m2) Terms G1 >=90 Normal or high G2 60-89 Mildly decreased* G3a 45-59 Mildly to moderately decreased G3b 30-44 Moderately to severely decreased G4 15-29 Severely decreased G5 <15 Kidney failure *Relative to young adult level. In the absence of evidence of kidney damage, neither GFR category G1 nor G2 fulfill the criteria for CKD. The CKD-EPI equation is validated in individuals 18 years of age and older. Currently the best equation for estimating glomerular filtration rate (GFR) from serum creatinine in children is the Bedside Bolton equation. It is less accurate in patients with extremes of muscle mass, restriction of dietary protein, ingestion of creatine, extra-renal metabolism of creatinine, or treatment with medications that affect renal tubular creatinine secretion. Performed By: #### B MP3, HEMDF #### [facility] [address] [place], [place] Glucose [Mass/Vol] 97 mg/dL Normal 70-100 [facility] Comment on above: Performed By: #### B MP3, HEMDF #### [facility] [address] [place], [place] Urea nitrogen [Mass/Vol] 20 mg/dL Normal 9-20 [facility] Comment on above: Performed By: #### B MP3, HEMDF #### [facility] [address] [place], [place] Chloride [Moles/Vol] 102 mmol/L Normal 98-107 [facility] Comment on above: Performed By: #### B MP3, HEMDF #### [facility] [address] [place] [address] Potassium [Moles/Vol] 4.1 mmol/L Normal 3.5-5.1 [facility] Comment on above: Performed By: #### B MP3, HEMDF #### [facility] [address] [place], [place] Sodium [Moles/Vol] 135 mmol/L Normal 135-145 [facility] Comment on above: Performed By: #### B MP3, HEMDF #### [facility] [address] [place], [place] Hemogram w/ Autodiffon 10-30 Erythrocyte distribution width (RBC) [Ratio] 16.2 % High 11.5-14.5 [facility] Comment on above: Performed By: #### B MP3, HEMDF #### [facility] [address] [place], [place] Hematocrit (Bld) [Volume fraction] 33.7 % Low 35.0-47.0 [facility] Comment on above: Performed By: #### B MP3, HEMDF #### [place] [address] [address] [place], [place] Hemoglobin (Bld) [Mass/Vol] 10.8 g/dL Low 11.7-16.0 [facility] Comment on above: Performed By: #### B MP3, HEMDF #### [place] [address] [place], [place] MCH (RBC) [Entitic mass] 27.7 pg Normal 26.0-34.0 [facility] Comment on above: Performed By: #### B MP3, HEMDF #### [place] [address] [place], [place] MCHC 32.1 % Normal 32.0-36.0 [facility] Comment on above: Performed By: #### B MP3, HEMDF #### [place] [address] [place], [place] MCV (RBC) [Entitic vol] 86.3 fL Normal 79.0-98.0 [facility] Comment on above: Performed By: #### B MP3, HEMDF #### [place] [address] [place], [place] Platelet mean volume (Bld) [Entitic vol] 8.1 fL Normal 7.4-10.4 [facility] Comment on above: Performed By: #### B MP3, HEMDF #### [place] [address] [place], [place] Platelets (Bld) [#/Vol] 273 10*3/uL Normal 140-440 [facility] Comment on above: Performed By: #### Christo CALABRESE, HEMDF #### [place] [address] [place], [place] RBC (Bld) [#/Vol] 3.90 10*6/uL Normal 3.80-5.20 [facility] Comment on above: Performed By: #### Christo CALABRESE, HEMDF #### [place] [address] [place], [place] WBC (Bld) [#/Vol] 7.0 10*3/uL Normal 3.6-10.7 [facility] Comment on above: Performed By: #### B BHARATI, HEMDF #### [place] [address] [place], [place] Manual Diffon 10-30-2021 Abs Baso Cnt 0.1 10*3/uL Normal 0.0-0.2 [facility] Comment on above: Performed By: #### Christo CALABRESE, HEMDF #### [place] [address] [place], [place] Abs Eosin Cnt 0.2 10*3/uL Normal 0.0-0.5 [facility] Comment on above: Performed By: #### Christo CALABRESE, HEMDF #### [place] [address] [place], [place] Abs Lymph Cnt 1.8 10*3/uL Normal 1.1-4.5 [facility] Comment on above: Performed By: #### Christo CALABRESE, HEMDF #### [place] [address] [place], [place] Abs Monocyte Cnt 0.6 10*3/uL Normal 0.2-1.1 [facility] Comment on above: Performed By: #### Christo CALABRESE, HEMDF #### [place] [address] [place], [place] Abs Neutrophile Cnt 4.2 10*3/uL Normal 2.2-8.2 [facility] Comment on above: Performed By: #### B BHARATI, HEMDF #### [place] [address] [place], [place] Anisocytosis Slight Normal [facility] Comment on above: Performed By: #### B MP3, HEMDF #### [facility] [address] [place], [place] Bands 1 % Normal 0-3 [facility] Comment on above: Performed By: #### B MP3, HEMDF #### [facility] [address] [place], [place] Basophils 2 % Normal 0-2 [facility] Comment on above: Performed By: #### B MP3, HEMDF #### [facility] [address] [place], [place] Cells Slight Normal [facility] Comment on above: Performed By: #### B MP3, HEMDF #### [facility] [address] [place], [place] Cells counted 100 Normal [facility] Comment on above: Performed By: #### B MP3, HEMDF #### [facility] [address] [place], [place] Eosinophils 3 % Normal 1-6 [facility] Comment on above: Performed By: #### B MP3, HEMDF #### [facility] [address] [place], [place] Lymphocytes 26 % Normal 20-40 [facility] Comment on above: Performed By: #### B MP3, HEMDF #### [facility] [address] [place], [place] Monocytes 9 % Normal 2-10 [facility] Comment on above: Performed By: #### B MP3, HEMDF #### [facility] [address] [place], [place] Polychromasia Slight Normal [facility] Comment on above: Performed By: #### B MP3, HEMDF #### [facility] [address] [place], [place] RBC Morphology ABNORMAL Normal [facility] Comment on above: Performed By: #### B MP3, HEMDF #### [facility] [address] [place] [address] Seg Neutrophils 59 % Normal 40-80 [facility] Comment on above: Performed By: #### B MP3, HEMDF #### [facility] [address] [place], [place] Basic Metabolic Panelon 01-2 Calcium [Mass/Vol] 8.9 mg/dL Normal 8.4-10.4 [facility] Comment on above: Performed By: #### B MP3, HEMDF #### [facility] [address] [place], [place] Glucose [Mass/Vol] 172 mg/dL High 70-100 [facility] Comment on above: Performed By: #### B MP3, HEMDF #### [facility] [address] [place], [place] Anion gap [Moles/Vol] 4 mmol/L Normal 3-13 [facility] Comment on above: Performed By: #### B MP3, HEMDF #### [facility] [address] [place], [place] CO2 [Moles/Vol] 26 mmol/L Normal 22-30 [facility] Comment on above: Performed By: #### B MP3, HEMDF #### [facility] [address] [place], [place] Creatinine [Mass/Vol] 0.87 mg/dL Normal 0.52-1.25 [facility] Comment on above: Performed By: #### B MP3, HEMDF #### [facility] [address] [place], [place] GFR/1.73 sq M.predicted among blacks MDRD (S/P/Bld) [Vol rate/Area] 82.6 mL/min/{1.73_m2} Normal >60 [facility] Comment on above: Performed By: #### B MP3, HEMDF #### [facility] [address] [place], [place] GFR/1.73 sq M.predicted among non-blacks MDRD (S/P/Bld) [Vol rate/Area] 71.3 mL/min/{1.73_m2} Normal >60 [facility] Comment on above: Result Comment: KDIG O guidelines provide the following GFR categories: Stage GFR(ml/min/1.73 m2) Terms G1 >=90 Normal or high G2 60-89 Mildly decreased* G3a 45-59 Mildly to moderately decreased G3b 30-44 Moderately to severely decreased G4 15-29 Severely decreased G5 <15 Kidney failure *Relative to young adult level. In the absence of evidence of kidney damage, neither GFR category G1 nor G2 fulfill the criteria for CKD. The CKD-EPI equation is validated in individuals 18 years of age and older. Currently the best equation for estimating glomerular filtration rate (GFR) from serum creatinine in children is the Bedside Bolton equation. It is less accurate in patients with extremes of muscle mass, restriction of dietary protein, ingestion of creatine, extra-renal metabolism of creatinine, or treatment with medications that affect renal tubular creatinine secretion. Performed By: #### B MP3, HEMDF #### [place] [address] [place] Urea nitrogen [Mass/Vol] 19 mg/dL Normal 9-20 [facility] Comment on above: Performed By: #### B MP3, HEMDF #### [place] [address] [place] Chloride [Moles/Vol] 105 mmol/L Normal 98-107 [facility] Comment on above: Performed By: #### B MP3, HEMDF #### [address] Potassium [Moles/Vol] 4.0 mmol/L Normal 3.5-5.1 [facility] Comment on above: Performed By: #### B MP3, HEMDF #### [address] Sodium [Moles/Vol] 135 mmol/L Normal 135-145 [facility] Comment on above: Performed By: #### B MP3, HEMDF #### [address] CULT/STAIN - AEROBIC AND REFUGIO EROBICon 10-29-2021 CULT/STAIN - AEROBIC AND ANAEROBIC STAIN GRAM --> Status: F Many polymorphonuclear cells/lpf. Rare gram positive cocci . Rare gram positive cocci . CULTURE ANAEROBE --> Status: F No growth of anaerobes at 5 days. 1 Organism Staphylococcus aureus Few Negative for PBP2a (MSSA). -- 1 Organism -- Antibiotic Result Intrp -- Nafcillin/Oxacillin(MCKAYLA) 0.5 S Inducible Clindamycin Resistant(MCKAYLA)Pos Pos Clindamycin(MCKAYLA) R Vancomycin(MCKAYLA) <= 0.5 S Trimeth/Sulfa(MCKAYLA) <= 10 S Linezolid(MCKAYLA) 2 S Daptomycin(MCKAYLA) 0.25 S Gentamicin(MCKAYLA) <= 0.5 S Doxycycline(MCKAYLA) <= 0.5 S Tigecycline(MCKAYLA) <= 0.12 S Rifampin(MCKAYLA) <= 0.[address] [facility] [employer] ([place] [facility] Comment on above: Performed By: #### B MP3, HEMDF #### [email or web address] [address] [place], [place] Hemogram w/ Autodiffon 10-29 Abs Baso Cnt 0.0 10*3/uL Normal 0.0-0.2 [facility] [employer] ([place] Comment on above: Performed By: #### B MP3, HEMDF #### [email or web address] [address] [place], [place] Abs Neutrophile Cnt 6.6 10*3/uL Normal 1.8-7.0 [facility] [employer] ([place]) [facility] Comment on above: Performed By: #### B MP3, HEMDF #### [email or web address] [address] [place] [address] Basophils/100 WBC (Bld) 0.1 % Normal 0.0-2.0 [facility] Comment on above: Performed By: #### B MP3, HEMDF #### [place] [address] [place], [place] Eosinophils (Bld) [#/Vol] 0.0 10*3/uL Normal 0.0-0.5 [facility] Comment on above: Performed By: #### B MP3, HEMDF #### [place] [address] [place], [place] Eosinophils/100 WBC (Bld) 0.0 % Low 1.0-6.0 [facility] Comment on above: Performed By: #### B MP3, HEMDF #### [place] [address] [place] Erythrocyte distribution width (RBC) [Ratio] 16.1 % High 11.5-14.5 [facility] Comment on above: Performed By: #### B MP3, HEMDF #### [place] [address] [place], [place] Granulocytes/100 WBC (Bld) 85.0 % High 40.0-80.0 [facility] Comment on above: Performed By: #### Christo MP3, HEMDF #### [place] [address] [place] Hematocrit (Bld) [Volume fraction] 34.5 % Low 35.0-47.0 [facility] Comment on above: Performed By: #### B MP3, HEMDF #### [place] [address] [place], [place] Hemoglobin (Bld) [Mass/Vol] 11.0 g/dL Low 11.7-16.0 [facility] Comment on above: Performed By: #### B MP3, HEMDF #### [place] [address] [place] Lymphocytes (Bld) [#/Vol] 0.7 10*3/uL Low 1.0-4.3 [facility] Comment on above: Performed By: #### B MP3, HEMDF #### [facility] [address] [place] [address] Lymphocytes/100 WBC (Bld) 8.7 % Low 20.0-40.0 [facility] Comment on above: Performed By: #### B MP3, HEMDF #### [facility] [address] [place] [address] MCH (RBC) [Entitic mass] 27.7 pg Normal 26.0-34.0 [facility] Comment on above: Performed By: #### B MP3, HEMDF #### [facility] [address] [place] [address] MCHC 32.0 % Normal 32.0-36.0 [facility] Comment on above: Performed By: #### B MP3, HEMDF #### [facility] [address] [place] [address] MCV (RBC) [Entitic vol] 86.5 fL Normal 79.0-98.0 [facility] Comment on above: Performed By: #### B MP3, HEMDF #### [facility] [address] [place] [address] Monocytes (Bld) [#/Vol] 0.5 10*3/uL Normal 0.0-0.8 [facility] Comment on above: Performed By: #### B MP3, HEMDF #### [facility] [address] [place] [address] Monocytes/100 WBC (Bld) 6.2 % Normal 2.0-10.0 [facility] Comment on above: Performed By: #### B MP3, HEMDF #### [facility] [address] [place] [address] Platelet mean volume (Bld) [Entitic vol] 8.6 fL Normal 7.4-10.4 [facility] Comment on above: Performed By: #### B MP3, HEMDF #### [facility] [address] [place] [address] Platelets (Bld) [#/Vol] 286 10*3/uL Normal 140-440 [facility] Comment on above: Performed By: #### B MP3, HEMDF #### [facility] [address] [place], [place] RBC (Bld) [#/Vol] 3.99 10*6/uL Normal 3.80-5.20 [facility] Comment on above: Performed By: #### B MP3, HEMDF #### [facility] [address] [place], [place] WBC (Bld) [#/Vol] 7.8 10*3/uL Normal 3.6-10.7 [facility] Comment on above: Performed By: #### B MP3, HEMDF #### [facility] [address] [place], [place] Basic Metabolic Panelon -2 Anion gap [Moles/Vol] 2 mmol/L Low 3-13 [facility] Comment on above: Performed By: #### B MP3 #### [place] [address] [place], [place] Calcium [Mass/Vol] 7.6 mg/dL Low 8.4-10.4 [facility] Comment on above: Performed By: #### B MP3 #### [facility] [address] [place], [place] CO2 [Moles/Vol] 26 mmol/L Normal 22-30 [facility] Comment on above: Performed By: #### B MP3 #### [place] [address] [place], [place] Creatinine [Mass/Vol] 0.54 mg/dL Normal 0.52-1.25 [facility] Comment on above: Performed By: #### B MP3 #### [facility] [address] [place], [place] eGFR OTHER > 90.0 Normal >60 [facility] Comment on above: Result Comment: KDIG O guidelines provide the following GFR categories: Stage GFR(ml/min/1.73 m2) Terms G1 >=90 Normal or high G2 60-89 Mildly decreased* G3a 45-59 Mildly to moderately decreased G3b 30-44 Moderately to severely decreased G4 15-29 Severely decreased G5 <15 Kidney failure *Relative to young adult level. In the absence of evidence of kidney damage, neither GFR category G1 nor G2 fulfill the criteria for CKD. The CKD-EPI equation is validated in individuals 18 years of age and older. Currently the best equation for estimating glomerular filtration rate (GFR) from serum creatinine in children is the Bedside Bolton equation. It is less accurate in patients with extremes of muscle mass, restriction of dietary protein, ingestion of creatine, extra-renal metabolism of creatinine, or treatment with medications that affect renal tubular creatinine secretion. Performed By: #### B MP3 #### [place] [address] [place], [place] GFR/1.73 sq M.predicted among blacks MDRD (S/P/Bld) [Vol rate/Area] mL/min/{1.73_m2} Normal >60 [facility] Comment on above: Performed By: #### B MP3 #### [place] [address] [place], [place] Glucose [Mass/Vol] 91 mg/dL Normal 70-100 [facility] Comment on above: Performed By: #### B MP3 #### [place] [address] [place], [place] Urea nitrogen [Mass/Vol] 13 mg/dL Normal 9-20 [facility] Comment on above: Performed By: #### B MP3 #### [place] [address] [place], [place] Chloride [Moles/Vol] 111 mmol/L High 98-107 [facility] Comment on above: Performed By: #### B MP3 #### [place] [address], [place] Potassium [Moles/Vol] 3.3 mmol/L Low 3.5-5.1 [facility] Comment on above: Performed By: #### B MP3 #### [place] [address] [address] [place], [place] Sodium [Moles/Vol] 139 mmol/L Normal 135-145 [facility] Comment on above: Performed By: #### B MP3 #### [place] [address] [address] [place], [place] Anion gap [Moles/Vol] 5 mmol/L Normal 3-13 [facility] Comment on above: Performed By: #### B MP3, HEMDF #### [facility] [address], [place] Calcium [Mass/Vol] 8.4 mg/dL Normal 8.4-10.4 [facility] Comment on above: Performed By: #### B MP3, HEMDF #### [facility] [address], [place] CO2 [Moles/Vol] 24 mmol/L Normal 22-30 [facility] Comment on above: Performed By: #### B MP3, HEMDF #### [facility] [address], [place] Glucose [Mass/Vol] 151 mg/dL High 70-100 [facility] Comment on above: Performed By: #### B MP3, HEMDF #### [facility] [address], [place] Urea nitrogen [Mass/Vol] 15 mg/dL Normal 9-20 [facility] Comment on above: Performed By: #### B MP3, HEMDF #### [facility] [address], [place] Creatinine [Mass/Vol] 0.73 mg/dL Normal 0.52-1.25 [facility] Comment on above: Performed By: #### B MP3, HEMDF #### [facility] [employer] ([facility]) [facility] [address], [place] GFR/1.73 sq M.predicted among blacks MDRD (S/P/Bld) [Vol rate/Area] mL/min/{1.73_m2} Normal >60 [facility] Comment on above: Performed By: #### B MP3, HEMDF #### [facility] [address], [place] GFR/1.73 sq M.predicted among non-blacks MDRD (S/P/Bld) [Vol rate/Area] 88.2 mL/min/{1.73_m2} Normal >60 [facility] Comment on above: Result Comment: KDIG O guidelines provide the following GFR categories: Stage GFR(ml/min/1.73 m2) Terms G1 >=90 Normal or high G2 60-89 Mildly decreased* G3a 45-59 Mildly to moderately decreased G3b 30-44 Moderately to severely decreased G4 15-29 Severely decreased G5 <15 Kidney failure *Relative to young adult level. In the absence of evidence of kidney damage, neither GFR category G1 nor G2 fulfill the criteria for CKD. The CKD-EPI equation is validated in individuals 18 years of age and older. Currently the best equation for estimating glomerular filtration rate (GFR) from serum creatinine in children is the Bedside Bolton equation. It is less accurate in patients with extremes of muscle mass, restriction of dietary protein, ingestion of creatine, extra-renal metabolism of creatinine, or treatment with medications that affect renal tubular creatinine secretion. Performed By: #### B MP3, HEMDF #### [place] [place] [address] Chloride [Moles/Vol] 107 mmol/L Normal 98-107 [facility] Comment on above: Performed By: #### B MP3, HEMDF #### [place] [place] [address] Potassium [Moles/Vol] 5.1 mmol/L Normal 3.5-5.1 [facility] Comment on above: Result Comment: mode rately hemolysed, interpret with caution. Performed By: #### B MP3, HEMDF #### [address] [address] [place] [address] Sodium [Moles/Vol] 136 mmol/L Normal 135-145 [facility] Comment on above: Performed By: #### B MP3, HEMDF #### [address] [address] [place] [address] CR Chest Portableon 10-28-19 CR Chest Portable Patient Name: SIOBHAN MCINTOSH Diagnostic Radiology ACCESSION EXAM DATE/TIME PROCEDURE ORDERING PROVIDER [id number] 10/28/2021 13:30 EST CR Chest Portable CALL, SHOAIB FIORE CPT code 15394 Reason For Exam (CR Chest Portable) line placement Report PORTABLE CHEST (Frontal View) History: Respiratory abnormality, catheter placement Comparison: 09/24/2022 Findings: Frontal portable chest view shows the tip of left-sided PICC line overlies SVC. Both lungs show interstitial prominence without acute infiltrate or overt congestion. The heart is borderline enlarged. There is no mediastinal widening, pneumothorax, pleural effusion, or other significant change from last exam. Neurostimulator lead overlies the lower dorsal spine. Report Dictated on Final Dictated: 10/28/2021 2:32 pm Dictating Physician: MD ANNE AHMAD Signed Date and Time: 10/28/2021 2:34 pm Signed by: MD ANNE AHMAD Transcribed Date and Time: 10/28/2021 2:32 Normal [facility] Hemogramon 10-28-2021 Erythrocyte distribution width (RBC) [Ratio] 16.0 % High 11.5-14.5 [facility] Comment on above: Performed By: #### H EMOG #### [place] [address], [place] Hematocrit (Bld) [Volume fraction] 32.8 % Low 35.0-47.0 [facility] Comment on above: Performed By: #### H EMOG #### [place] [address] [place], [place] Hemoglobin (Bld) [Mass/Vol] 10.6 g/dL Low 11.7-16.0 [facility] Comment on above: Performed By: #### H EMOG #### [place] [address], [place] MCH (RBC) [Entitic mass] 27.7 pg Normal 26.0-34.0 [facility] Comment on above: Performed By: #### H EMOG #### [place] [address], [place] MCHC 32.5 % Normal 32.0-36.0 [facility] Comment on above: Performed By: #### H EMOG #### [place] [address] [place], [place] MCV (RBC) [Entitic vol] 85.2 fL Normal 79.0-98.0 [facility] Comment on above: Performed By: #### H EMOG #### [facility] [address], [place] Platelet mean volume (Bld) [Entitic vol] 8.4 fL Normal 7.4-10.4 [facility] Comment on above: Performed By: #### H EMOG #### [place] [address] [place], [place] Platelets (Bld) [#/Vol] 249 10*3/uL Normal 140-440 [facility] Comment on above: Performed By: #### H EMOG #### [place] [address] [place], [place] RBC (Bld) [#/Vol] 3.85 10*6/uL Normal 3.80-5.20 [facility] Comment on above: Performed By: #### H EMOG #### [place] [address], [place] WBC (Bld) [#/Vol] 8.0 10*3/uL Normal 3.6-10.7 [facility] Comment on above: Performed By: #### H EMOG #### [place] [address], [place] Erythrocyte distribution width (RBC) [Ratio] 16.5 % High 11.5-14.5 [facility] Comment on above: Performed By: #### B MP3, HEMDF #### [place] [address] [place], [place] Hematocrit (Bld) [Volume fraction] 36.7 % Normal 35.0-47.0 [facility] Comment on above: Performed By: #### B MP3, HEMDF #### [facility] [address], [place] Hemoglobin (Bld) [Mass/Vol] 11.9 g/dL Normal 11.7-16.0 [facility] Comment on above: Performed By: #### B MP3, HEMDF #### [place] [address], [place] MCH (RBC) [Entitic mass] 27.8 pg Normal 26.0-34.0 [facility] Comment on above: Performed By: #### B MP3, HEMDF #### [place] [address] [place] MCHC 32.3 % Normal 32.0-36.0 [facility] Comment on above: Performed By: #### B MP3, HEMDF #### [place] [address] [place], [place] MCV (RBC) [Entitic vol] 86.1 fL Normal 79.0-98.0 [facility] Comment on above: Performed By: #### B MP3, HEMDF #### [place] [address], [place] Platelet mean volume (Bld) [Entitic vol] 9.0 fL Normal 7.4-10.4 [facility] Comment on above: Performed By: #### B MP3, HEMDF #### [place] [address], [place] Platelets (Bld) [#/Vol] 268 10*3/uL Normal 140-440 [facility] Comment on above: Performed By: #### B MP3, HEMDF #### [place] [address], [place] RBC (Bld) [#/Vol] 4.26 10*6/uL Normal 3.80-5.20 [facility] Comment on above: Performed By: #### B MP3, HEMDF #### [place] [address], [place] WBC (Bld) [#/Vol] 6.7 10*3/uL Normal 3.6-10.7 [facility] Comment on above: Performed By: #### B MP3, HEMDF #### [place] [address], [place] Op Noteon 10-28-2021 Op Note Operative Note Patient: Siobhan Haas Date of : 1960 Date of Procedure: Pre-Op Diagnosis: Left ankle abscess/wound Post-Op Diagnosis: Same Procedure: Incision and drainage left ankle abscess/wound, delayed closure of left ankle wound Clothes Drier Assembler: Isaac Anesthesia: General Estimated Blood Loss (mL): Minimal Complications: None Specimens: None Implants: Not applicable Drains: External Urinary Catheter (Active) Output (mL) 500 mL 09/28/21 0622 [REMOVED] Negative Pressure Wound Therapy Foot Left (Removed) Target Pressure (mmHg) 125 10/27/21 1920 Findings: The left ankle abscess/wound appeared to be resolving with good granulation tissue being found throughout the wound bed. The peroneus brevis was intact with no signs of infection. Based on improvement in the wound it was decided to close the entire wound site. History of present illness: Siobhan is a 59-year-old female who underwent previous incision and drainage of the left ankle abscess/wound on 10/27/2021. A VAC dressing was placed within the wound site with plan to return to surgery for repeat I&D and possible closure. Despite the risks of surgery Siobhan consented to proceed. Detailed Description of Procedure: Operative report: I met with Siobhan in [...] normal structures that can lead to long distance operator problems of pain or dysfunction, wound healing complications, and late or chronic pain as a result of the surgical intervention. In addition potentially life threatening complications that can occur at the time of surgery and after surgery were discussed including but not limited to deep vein thrombosis, pulmonary embolism, myocardial infarction, stroke and . I initialed her Left lower extremity and signed her consent form. Siobhan was then brought to the operating room and placed in the supine position on the Operating Room table. Care was taken to identify and pad all bony prominences. A general anesthetic was then given by the anesthesia staff and an endotracheal tube was placed by the anesthesia staff. At all times during the operative procedure the patient's head neck and airway were protected by the anesthesia staff. A tourniquet was not utilized for the case. The Left lower extremity was then prepped and draped in the usual orthopedic sterile fashion. A surgical timeout was then performed with the patient's identification, the procedure to be performed being reviewed with the consent form, verification that the patient had received preoperative antibiotics, and verification of the correct surgical side. Everyone in the operating room stopped what they were doing in order to participate in the timeout. This timeout was performed by myself, the circulating room nurse and the anesthesia staff. The patient's ASA was verified by the nurse machine printer and the anesthesia staff. Fire risk was assessed. The VAC dressing had been removed prior to prepping and draping. Incision and drainage of the wound was then performed. A large amount of granulation tissue was found throughout the wound. The peroneus brevis was found to be intact with no signs of infection. The entire zone of infection was exposed. A combination of sharp excision utilizing a scalpel, rongeurs and curets were used to excise any nonviable appearing skin and subcutaneous tissue. Once an adequate debridement had been performed and I was comfortable that no additional debridement was necessary the wound was thoroughly irrigated with copious amounts of sterile saline. Any active bleeding was then controlled using Bovie cautery. The deep tissues were closed utilizing a 2-0 PDS suture in interrupted buried fashion. The skin was closed using 2-0 nylon sutures. Dry sterile dressings were applied. Siobhan was awakened from her anesthetic, transferred to her hospital bed and taken to the recovery room in stable medical condition. Normal [facility] Vancomycin Troughon 10-28-19 Vancomycin Trough 6.2 ug/mL Low 15.0-20.0 [facility] Comment on above: Result Comment: . Performed By: #### V ANCT #### [address] [address] Basic Metabolic Panelon 10-02 Anion gap [Moles/Vol] 5 mmol/L Normal 3-13 [facility] Comment on above: Performed By: #### B MP3, HEMDF #### [address] [address] Calcium [Mass/Vol] 8.9 mg/dL Normal 8.4-10.4 [facility] Comment on above: Performed By: #### B MP3, HEMDF #### [facility] [address], [place] CO2 [Moles/Vol] 29 mmol/L Normal 22-30 [facility] Comment on above: Performed By: #### B MP3, HEMDF #### [facility] [address], [place] Creatinine [Mass/Vol] 0.84 mg/dL Normal 0.52-1.25 [facility] Comment on above: Performed By: #### B MP3, HEMDF #### [place] [address] [place], [place] GFR/1.73 sq M.predicted among blacks MDRD (S/P/Bld) [Vol rate/Area] 86.2 mL/min/{1.73_m2} Normal >60 [facility] Comment on above: Performed By: #### B MP3, HEMDF #### [address] [address] [place], [place] GFR/1.73 sq M.predicted among non-blacks MDRD (S/P/Bld) [Vol rate/Area] 74.4 mL/min/{1.73_m2} Normal >60 [facility] Comment on above: Result Comment: KDIG O guidelines provide the following GFR categories: Stage GFR(ml/min/1.73 m2) Terms G1 >=90 Normal or high G2 60-89 Mildly decreased* G3a 45-59 Mildly to moderately decreased G3b 30-44 Moderately to severely decreased G4 15-29 Severely decreased G5 <15 Kidney failure *Relative to young adult level. In the absence of evidence of kidney damage, neither GFR category G1 nor G2 fulfill the criteria for CKD. The CKD-EPI equation is validated in individuals 18 years of age and older. Currently the best equation for estimating glomerular filtration rate (GFR) from serum creatinine in children is the Bedside Bolton equation. It is less accurate in patients with extremes of muscle mass, restriction of dietary protein, ingestion of creatine, extra-renal metabolism of creatinine, or treatment with medications that affect renal tubular creatinine secretion. Performed By: #### B MP3, HEMDF #### [place] [address] [place], [place] Glucose [Mass/Vol] 115 mg/dL High 70-100 [facility] Comment on above: Performed By: #### B MP3, HEMDF #### [place] [address] [place], [place] Urea nitrogen [Mass/Vol] 20 mg/dL Normal 9-20 [facility] Comment on above: Performed By: #### B MP3, HEMDF #### [facility] [address], [place] Chloride [Moles/Vol] 100 mmol/L Normal 98-107 [facility] Comment on above: Performed By: #### B MP3, HEMDF #### [place] [address] [place], [place] Potassium [Moles/Vol] 4.7 mmol/L Normal 3.5-5.1 [facility] Comment on above: Performed By: #### B MP3, HEMDF #### [place] [address] [place], [place] Sodium [Moles/Vol] 134 mmol/L Low 135-145 [facility] Comment on above: Performed By: #### B MP3, HEMDF #### [place] [address] [place], [place] Hemogramon 10-27-2021 Erythrocyte distribution width (RBC) [Ratio] 16.3 % High 11.5-14.5 [facility] Comment on above: Performed By: #### B MP3, HEMDF #### [place] [address] [place], [place] Hematocrit (Bld) [Volume fraction] 35.5 % Normal 35.0-47.0 [facility] Comment on above: Performed By: #### B MP3, HEMDF #### [place] [address] [place], [place] Hemoglobin (Bld) [Mass/Vol] 11.3 g/dL Low 11.7-16.0 [facility] Comment on above: Performed By: #### B MP3, HEMDF #### [place] [address], [place] MCH (RBC) [Entitic mass] 27.4 pg Normal 26.0-34.0 [facility] Comment on above: Performed By: #### Christo CALABRESE, HEMDF #### [address] MCHC 31.8 % Low 32.0-36.0 [facility] Comment on above: Performed By: #### Christo GRANT3, HEMDF #### [place] [address] [place], [place] MCV (RBC) [Entitic vol] 86.1 fL Normal 79.0-98.0 [facility] Comment on above: Performed By: #### Christo CALABRESE, HEMDF #### [place] [address] [place], [place] Platelet mean volume (Bld) [Entitic vol] 8.4 fL Normal 7.4-10.4 [facility] Comment on above: Performed By: #### Christo CALABRESE, HEMDF #### [place] [address] [place], [place] Platelets (Bld) [#/Vol] 239 10*3/uL Normal 140-440 [facility] Comment on above: Performed By: #### Christo CALABRESE, HEMDF #### [place] [address] [place], [place] RBC (Bld) [#/Vol] 4.12 10*6/uL Normal 3.80-5.20 [facility] Comment on above: Performed By: #### Christo CALABRESE, HEMDF #### [place] [address], [place] WBC (Bld) [#/Vol] 6.6 10*3/uL Normal 3.6-10.7 [facility] Comment on above: Performed By: #### Christo CALABRESE, HEMDF #### [place] [address] [place], [place] Op Noteon 10-27-2021 Op Note Pre-operative Diagno sis: Left ankle infection and abscess Post-operative Diagnosis: Same Procedure: #1 Incision and drainage abscess Left ankle (Wound dimensions: Length proximal to distal: 7 cm, Width anterior to posterior: 3 cm, Depth: 2 cm #2 Application wound VAC, wound <50 sq cm left ankle Components used: VAC Anesthesia: General Surgeon: Jess Assistants: Adolfo Gardner Estimated Blood Loss: Minimal Complications: None Specimens: None Medications: Siobhan was on scheduled antibiotics pre-operatively and no additional antibiotics were given Operative findings: The Left ankle infection and abscess was found to involve the The peroneus longus tendon and the entire tendon was resected. All suture that had been present within the peroneus longus was removed. The peroneus brevis was found to be intact with no signs of active infection. No signs of fibular osteomyelitis were found.. After the incision and drainage was complete a surgically clean wound was present but due to the severity of the infection the wound was left open and a VAC dressing was placed. History of present illness: Siobhan is a 61 y.o. female with a history significant for having undergone a left peroneus longus repair to the brevis. She developed a lateral sided wound which was treated on an outpatient basis. The wound worsened and she was admitted to the hospital on 10/25/2021. I therefore made a recommendation for the above mentioned procedure. Despite the known risks of the above mentioned surgery, which were discussed with Siobhan, she consented to the procedure. Operative report: I met with Siobhan in [...] to normal structures that can lead to mcfp problems of pain or dysfunction, wound healing complications, and late or chronic pain as a result of the surgical intervention. In addition potentially life threatening complications that can occur at the time of surgery and after surgery were discussed including but not limited to deep vein thrombosis, pulmonary embolism, myocardial infarction, stroke and . I initialed her Left lower extremity and signed her consent form. Siobhan was then brought to the operating room and placed in the supine position on the Operating Room table. Care was taken to identify and pad all bony prominences. A general anesthetic was then given by the anesthesia staff and an endotracheal tube was placed by the anesthesia staff. At all times during the operative procedure the patient's head neck and airway were protected by the anesthesia staff. A tourniquet was applied to the proximal thigh over cast padding. Total tourniquet time was less than 30 minutes. The Left lower extremity was then prepped and draped in the usual orthopedic sterile fashion. A surgical timeout was then performed with the patient's identification, the procedure to be performed being reviewed with the consent form, verification that the patient had received preoperative antibiotics, and verification of the correct surgical side. Everyone in the operating room stopped what they were doing in order to participate in the timeout. This timeout was performed by myself, the circulating room nurse and the anesthesia staff. The patient's ASA was verified by the nurse machine printer and the anesthesia staff. Fire risk was assessed. The operative extremity was then elevated for exsanguination and the tourniquet was inflated. Incision and drainage of the infection/abscess was performed. The previous lateral ankle incision was extended proximally and distally from the open wound site. All tissue within the open wound site was excisionally debrided. No gross purulence was found. The infection involves the peroneus longus. The peroneus longus and all suture that was present within the wound was removed. The peroneus brevis was found to be intact with no signs of infection. The fibula was found to be infection free with an intact periosteum. The entire zone of infection was exposed. A combination of sharp excision utilizing a scalpel, rongeurs and curets were used to excise any nonviable or infected appearing skin, subcutaneous tissue and Peroneus longus tendon. Once an adequate debridement had been performed and I was comfortable that no additional debridement was necessary the tourniquet was released and any active bleeding was controlled using Bovie cautery. The wound was then thoroughly irrigated with copious amounts of sterile saline. At this point it was decided to place (more content not included)... Normal [facility] Basic Metabolic Panelon 10-02 Calcium [Mass/Vol] 9.4 mg/dL Normal 8.4-10.4 [facility] Comment on above: Performed By: #### E SR, CRP2, HEMDF, BMP3 ####[address] Anion gap [Moles/Vol] 8 mmol/L Normal 3-13 [facility] Comment on above: Performed By: #### E SR, CRP2, HEMDF, BMP3 ####[address] [place], [place] CO2 [Moles/Vol] 29 mmol/L Normal 22-30 [facility] Comment on above: Performed By: #### E SR, CRP2, HEMDF, BMP3 ####[address] [place], [place] Glucose [Mass/Vol] 102 mg/dL High 70-100 [facility] Comment on above: Performed By: #### E SR, CRP2, HEMDF, BMP3 ####[address] [place], [place] Urea nitrogen [Mass/Vol] 20 mg/dL Normal 9-20 [facility] Comment on above: Performed By: #### E SR, CRP2, HEMDF, BMP3 ####[address] [address] [place], [place] Creatinine [Mass/Vol] 0.72 mg/dL Normal 0.52-1.25 [facility] Comment on above: Performed By: #### E SR, CRP2, HEMDF, BMP3 ####[address] [address] [place], [place] GFR/1.73 sq M.predicted among blacks MDRD (S/P/Bld) [Vol rate/Area] mL/min/{1.73_m2} Normal >60 [facility] Comment on above: Performed By: #### E SR, CRP2, HEMDF, BMP3 ####[address] GFR/1.73 sq M.predicted among non-blacks MDRD (S/P/Bld) [Vol rate/Area] 89.6 mL/min/{1.73_m2} Normal >60 [facility] Comment on above: Result Comment: KDIG O guidelines provide the following GFR categories: Stage GFR(ml/min/1.73 m2) Terms G1 >=90 Normal or high G2 60-89 Mildly decreased* G3a 45-59 Mildly to moderately decreased G3b 30-44 Moderately to severely decreased G4 15-29 Severely decreased G5 <15 Kidney failure *Relative to young adult level. In the absence of evidence of kidney damage, neither GFR category G1 nor G2 fulfill the criteria for CKD. The CKD-EPI equation is validated in individuals 18 years of age and older. Currently the best equation for estimating glomerular filtration rate (GFR) from serum creatinine in children is the Bedside Bolton equation. It is less accurate in patients with extremes of muscle mass, restriction of dietary protein, ingestion of creatine, extra-renal metabolism of creatinine, or treatment with medications that affect renal tubular creatinine secretion. Performed By: #### E SR, CRP2, HEMDF, BMP3 ####[address] [place], [place] Potassium [Moles/Vol] 4.0 mmol/L Normal 3.5-5.1 [facility] Comment on above: Performed By: #### E SR, CRP2, HEMDF, BMP3 ####[address] Sodium [Moles/Vol] 139 mmol/L Normal 135-145 [facility] Comment on above: Performed By: #### E SR, CRP2, HEMDF, BMP3 ####[address] [place], [place] Chloride [Moles/Vol] 103 mmol/L Normal 98-107 [facility] Comment on above: Performed By: #### E SR, CRP2, HEMDF, BMP3 ####[address] C-Reactive Proteinon 022 CRP [Mass/Vol] 45.2 mg/L High 0.0-9.9 [facility] Comment on above: Result Comment: . Performed By: #### E SR, CRP2, HEMDF, BMP3 ####[address] CR Ankle 3+ Views Lefton CR Ankle 3+ Views Left Patient Name: SIOBHAN TURNER Diagnostic Radiology ACCESSION EXAM DATE/TIME PROCEDURE ORDERING PROVIDER [id number] 10/25/2021 23:03 EST CR Ankle 3+ Views Left [id number] -MARQUIS TONEY CPT code 22691 Reason For Exam (CR Ankle 3+ Views Left) surgery november - wound vac removed today discharge and redness Report EXAMINATION: Left ankle three views INDICATION: surgery november - wound vac removed today discharge and redness FINDINGS: No acute fracture or dislocation is demonstrated. The joint spaces are grossly maintained. Large amount soft tissue swelling of the lateral malleolus is present. There is lesser soft tissue swelling of the medial malleolus. IMPRESSION: No acute osseous abnormality. Report Dictated on Final Dictated: 10/25/2021 11:11 pm Dictating Physician: MD JEFFRIES KRIKOR Signed Date and Time: 10/25/2021 11:11 pm Signed by: MD JEFFRIES KRIKOR Transcribed Date and Time: 10/25/2021 11:11 [facility] CR Foot Complete 3+ Views Le fton 10-26-2021 CR Foot Complete 3+ Views Left Patient Name: SIOBHAN HAAS Diagnostic Radiology ACCESSION EXAM DATE/TIME PROCEDURE ORDERING PROVIDER [id number] 10/25/2021 23:03 EST CR Foot Complete 3+ [id number] -TONEY CHO Views Left CPT code 49097 Reason For Exam (CR Foot Complete 3+ Views Left) left foot surgery November - discharge redeness Report EXAMINATION: Left foot three views INDICATION: left foot surgery November - discharge redness FINDINGS: No acute fracture or dislocation is demonstrated. There is splaying of the first and second digits at the first webspace. Mild degenerative changes of the IP joints are present. Hammertoe deformity is also present. Soft tissue swelling of the distal leg and ankle is noted. IMPRESSION: No obvious acute cortical erosion. Large amount soft tissue swelling at the distal leg and ankle. Report Dictated on Final Dictated: 10/25/2021 11:20 pm Dictating Physician: MD JEFFRIES KRIKOR Signed Date and Time: 10/25/2021 11:21 pm Signed by: MD JEFFRIES KRIKOR Transcribed Date and Time: 10/25/2021 11:20 [facility] ED Provider Noteon ED Provider Note Emergency Department Encounter [facility] EMERGENCY DEPT Patient: Siobhan Haas : 1960 Date of Evaluation: 10/25/2021 ED Provider: Charlie Fuentes MD Chief Complaint Chief Complaint Patient presents with ? Wound Infection Wound infection Left foot. Pt states she had OR for tendon around 08/25/21 and boot rubbed a wound and had OR to get drained out and had wound vac that wasn't working. Pt denies any fever. Pt states yellow drainage from wound. UNALAKLEET I wore appropriate PPE for the entirety of this encounter. Does this patient come from an ECF, SNF, Rehab, Intermediate or other Congregate setting: No (If yes to above patient needs a Covid-19 test) Nursing notes reviewed with PMH social hx and PSH. Siobhan Haas is a 61 y.o. female who presents to the emergency department complaining of left ankle pain. Patient had a surgery for a tendon in her left ankle that was remote. Had an infection after that and was actually treated for this infection after the surgery. Had a wound VAC on until yesterday. Noted there was worsening pain and then today when she took the wound VAC off had a lot of purulent drainage come off of the wound. Had noticed also today worsening of pain and tenderness at that area with throbbing and shooting pains of the ankle. No fevers or chills. No numbness or tingling. Did notice a lot of foul-smelling drainage from the wound. ROS: 14 systems reviewed and otherwise acutely negative except as in the UNALAKLEET. Past History Past Medical History: Diagnosis Date ? Amputation stump complicated by [...] URSULA (stress urinary incontinence, female) ? Vertigo Past Surgical History: Procedure Laterality Date ? ABDOMINOPLASTY ? ABSCESS DRAINAGE Right 08/07/2020 I&D of right BKA hematoma ? BREAST SURGERY 2007 and abdomin removal for excess ? COLONOSCOPY ? ENDOSCOPY, COLON, DIAGNOSTIC ? FOOT SURGERY Right 2019 IN [place] ? FOOT SURGERY Right 02/11/2019 ? FOOT SURGERY Right 04/08/2019 I&D right foot with antibiotic spacer ? FOOT SURGERY Right 04/24/2019 I&D;, external fixator ? FOOT SURGERY Left 08/04/2021 peroneus longus tenolysis - Dr Gamino ? HYSTERECTOMY 1996 ? INCONTINENCE SURGERY 11/15/2015 synthetic mid urethral sling,cystoscopy ? JOINT REPLACEMENT ? LIPOMA RESECTION Right 2014 shoulder ? ORTHOPEDIC SURGERY Right 04/01/2019 I&D with removal hardware and antibiotic spacer placed ? OTHER SURGICAL HISTORY 09/21/2016 INTERSTIM STAGE II, COMPLEX ANALYSIS OF NEUROSTIMULATOR ? OTHER SURGICAL HISTORY NERVE BLOCKS FROM PAIN MANAGEMENT ? OTHER SURGICAL HISTORY Right 03/07/2019 debridement of right foot ? OTHER SURGICAL HISTORY Right 04/02/2019 R foot skin graft/flap, wound debridement/Wound vac removal ? OTHER SURGICAL HISTORY Right 04/22/2019 right foot I and D ? 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 OTHER SURGICAL HISTORY 07/27/2020 Excision of scar tissue, neuroma RIGHT below knee amputation ? TONSILLECTOMY ? TOTAL KNEE ARTHROPLASTY Left 2012 ARTHROSCOPY FIRST AND KNEE REPLACED ? WISDOM TOOTH EXTRACTION Social History Socioeconomic History ? Marital status: Spouse name: None ? Number of children: None ? Years of education: None ? Highest education level: None Occupational History ? Occupation: disability Tobacco Use ? Smoking status: Former Smoker Packs/day: 0.15 Years: 10.00 Pack years: 1.50 Types: Cigarettes Quit date: 10/01/1981 Years since quittin.0 ? Smokeless tobacco: Never Used Vaping Use ? Vaping Use: Never used Substance and Sexual Activity ? Alcohol use: Yes Alcohol/week: 0.0 standard drinks Comment: occasionally ? Drug use: No ? Sexual activity: Never Other Topics Concern ? None Social History Narrative Has been in rehab facility in [place] Lives alone, son close Friends help Social Determinants of Health Financial Resource Strain: ? Difficulty of Paying Living Expenses: Not on file Food Insecurity: ? Worried About Running Out of Food in the Last Year: Not on file ? Ran Out of Food in the Last Year: Not on file Transportation Needs: ? Lack of Transportation (Medical): Not on file ? Lack of Transportation (Non-Medical): Not on file Physical Activity: ? Days of Exercise per Week: Not on file ? Minutes of Exercise per Session: Not on file Stress: ? Feeling of Stress : Not on reno (more content not included)... [facility] ED Provider Note Emergency Department Encounter [facility] EMERGENCY DEPT Patient: Siobhan Haas : 1960 Date of Evaluation: 10/25/2021 ED Provider: Toney Tee PA-C I saw the patient as the Clinician in Triage and performed a brief history and physical exam, established acuity, and ordered appropriate tests to develop basic plan of care. Patient will be seen by MELISSA and/or my physician partner who will evaluate the patient. I wore an N95 mask for the entirety of this encounter. Does this patient come from an ECF, SNF, Rehab, Intermediate or other Congregate setting: No (If yes to above patient needs a Covid-19 test) Brief HPI: In brief, Siobhan Haas is a 61 y.o. female that presents for evaluation of her left ankle after being advised to come to the emergency department for further evaluation. Patient states that she had surgery on her left ankle in August 2021. She states that while she was wearing the walking boot she developed a large wound. She has had a wound VAC on the ankle, states that a home nurse changed and tended to the wound VAC yesterday. States that there was no discharge or pus at that time. Today she noticed surrounding erythema and discharge. States that she remove the wound VAC at home, states that there was a large amount of yellow pus leaking from the wound. States that this happened around 4:30 PM. She states that prior to today she had no pain to the left ankle. Currently rated 9 out of 10. No calf pain or swelling. No personal history of acute DVT or PE. However she does state that she had a right below the knee amputation a few years prior secondary to osteomyelitis. No fevers or chills. No chest pain or shortness of breath. Focused Physical exam: Patient is generally well-appearing. She is in no acute distress. Nontoxic in appearance. Vital signs reveal elevated blood pressure of 150/91. Otherwise she is afebrile with no tachycardia tachypnea or hypoxia noted. Heart regular rate and rhythm. Lungs are clear to auscultation bilaterally. The left lower extremity is covered with a wet-to-dry dressing. There is visualized surrounding erythema outside of the area that is dressed. There is a palpable DP and PT pulse 2+. Brisk capillary refill. Patient maintains ability to move all 5 toes. Dorsiflexion and plantar flexion intact to the left lower extremity. There is no erythema edema or palpable cords to the left calf. Negative Homans' sign. Plan: We will obtain lab work and radiographs. Please see subsequent provider note for further details and disposition Comment: Please note this report has been produced using speech recognition software and may contain errors related to that system including errors in grammar, punctuation, and spelling as well as words and phrases that may be inappropriate. If there are any questions or concerns please feel free to contact the dictating provider for clarification Toney Tee PA-C [employer] Toney Tee PA-C 10/25/21 2303 [facility] Hemogram w/ Autodiffon 10-26 Abs Baso Cnt 0.0 10*3/uL Normal 0.0-0.2 [facility] Comment on above: Performed By: #### E SR, CRP2, HEMDF, BMP3 ####[address] [place] [address] Abs Neutrophile Cnt 5.0 10*3/uL Normal 1.8-7.0 [facility] Comment on above: Performed By: #### E SR, CRP2, HEMDF, BMP3 ####[address] [place] [address] Basophils/100 WBC (Bld) 0.5 % Normal 0.0-2.0 [facility] Comment on above: Performed By: #### E SR, CRP2, HEMDF, BMP3 ####[address] Eosinophils (Bld) [#/Vol] 0.1 10*3/uL Normal 0.0-0.5 [facility] Comment on above: Performed By: #### E SR, CRP2, HEMDF, BMP3 ####[address] Eosinophils/100 WBC (Bld) 1.2 % Normal 1.0-6.0 [facility] Comment on above: Performed By: #### E SR, CRP2, HEMDF, BMP3 ####[address] Erythrocyte distribution width (RBC) [Ratio] 16.7 % High 11.5-14.5 [facility] Comment on above: Performed By: #### E SR, CRP2, HEMDF, BMP3 ####[address] Granulocytes/100 WBC (Bld) 66.1 % Normal 40.0-80.0 [facility] Comment on above: Performed By: #### E SR, CRP2, HEMDF, BMP3 ####[address] Hematocrit (Bld) [Volume fraction] 37.1 % Normal 35.0-47.0 [facility] Comment on above: Performed By: #### E SR, CRP2, HEMDF, BMP3 ####[address] Hemoglobin (Bld) [Mass/Vol] 12.2 g/dL Normal 11.7-16.0 [facility] Comment on above: Performed By: #### E SR, CRP2, HEMDF, BMP3 ####[address] Lymphocytes (Bld) [#/Vol] 1.5 10*3/uL Normal 1.0-4.3 [facility] Comment on above: Performed By: #### E SR, CRP2, HEMDF, BMP3 ####[address] Lymphocytes/100 WBC (Bld) 19.4 % Low 20.0-40.0 [facility] Comment on above: Performed By: #### E SR, CRP2, HEMDF, BMP3 ####[address] MCH (RBC) [Entitic mass] 28.1 pg Normal 26.0-34.0 [facility] Comment on above: Performed By: #### E SR, CRP2, HEMDF, BMP3 ####[address] MCHC 33.0 % Normal 32.0-36.0 [facility] Comment on above: Performed By: #### E SR, CRP2, HEMDF, BMP3 ####[address] MCV (RBC) [Entitic vol] 85.1 fL Normal 79.0-98.0 [facility] Comment on above: Performed By: #### E SR, CRP2, HEMDF, BMP3 ####[address] Monocytes (Bld) [#/Vol] 1.0 10*3/uL High 0.0-0.8 [facility] Comment on above: Performed By: #### E SR, CRP2, HEMDF, BMP3 ####[address] Monocytes/100 WBC (Bld) 12.8 % High 2.0-10.0 [facility] Comment on above: Performed By: #### E SR, CRP2, HEMDF, BMP3 ####[address] Platelet mean volume (Bld) [Entitic vol] 8.8 fL Normal 7.4-10.4 [facility] Comment on above: Performed By: #### E SR, CRP2, HEMDF, BMP3 ####[address] [place], [place] Platelets (Bld) [#/Vol] 231 10*3/uL Normal 140-440 [facility] Comment on above: Performed By: #### E SR, CRP2, HEMDF, BMP3 ####[address] RBC (Bld) [#/Vol] 4.36 10*6/uL Normal 3.80-5.20 [facility] Comment on above: Performed By: #### E SR, CRP2, HEMDF, BMP3 ####[address] [place], [place] WBC (Bld) [#/Vol] 7.6 10*3/uL Normal 3.6-10.7 [facility] Comment on above: Performed By: #### E SR, CRP2, HEMDF, BMP3 ####[address] Lactic Acidon 10-26-2021 Lactate [Moles/Vol] 0.7 mmol/L Normal 0.7-2.0 [facility] Comment on above: Performed By: #### B MP3, HEMDF #### [address] [address] [place] Prothrombin Timeon INR 1.0 Normal 0.9-1.1 [facility] Comment on above: Result Comment: Alexis mmended Anticoagulant Therapy: SEE BELOW ----- INR of 2.0 - 3.0 : - Prophylaxis of Venous Thrombosis (high-risk surgery) - Treatment of Venous Thrombosis - Treatment of Pulmonary Embolism (Includes tissue heart valves, Acute Myocardial Infarction to prevent systemic embolism, Valvular Heart Disease, and Atrial Fibrillation) ----- INR of 2.5 - 3.5 : - Mechanical Prosthetic Valves (high risk) - If oral anticoagulant therapy is used to prevent Myocardial Infarction Performed By: #### P T #### [address] [address] [place] PT Coag (PPP) [Time] 10.9 s Normal 9.0-12.0 [facility] WedPics (deja mi) [facility] Comment on above: Result Comment: . Performed By: #### P T #### [facility] [address] [place], [place] Sed Rateon 10-26-2021 Sed Rate 72 mm/h High 0-20 [facility] Comment on above: Performed By: #### E SR, CRP2, HEMDF, BMP3 ####[facility] [place], [place] TS GELon 10-26-2021 TS GEL ABO Group: O Rh, Gel: POS Antibody Screen Gel: NEG Normal [facility] Comment on above: Performed By: #### T SGL ####[facility] VL PVR Arterial Doppler Lwr w/o Exerciseon 10-26-2021 VL PVR Arterial Doppler Lwr w/o Exercise Patient Name: SIOBHAN HAAS Ultrasound ACCESSION EXAM DATE/TIME PROCEDURE ORDERING PROVIDER [id number] 10/26/2021 13:46 EST VL PVR Arterial Doppler MD PAREKH BLAKE Lwr w/o Exercise CPT code 70242 Reason For Exam (VL PVR Arterial Doppler Lwr w/o Exercise) Wound healing potential Report [facility] Multilevel Lower Extremity Arterial Evaluation Report Patient Waldo : 1960 Study 10/26/2021 Name: Siobhan Cochran (61yrs) Date: Patient [id number] Age: 61 Account: [id number] ID: Gender: F Loc: 1ECB BP: Ordering Physician: Kevan Parekh Field Identification Specialist: Dacia Chandler T Interpreting Physician: Ozzie Park MD Location: [facility] Indications: Non healing ulcer left lateral foot. Pt is a right BKA. Conclusions 1. Normal flow to the ankle with small vessel disease present on the left. 2. Left resting SINDHU is 1.16. This is within the normal range. PVR waveforms appear normal at rest 3. Left resting TBI is 0.70. These findings are abnormal. History: Risk factors: Former tobacco use. Hypertension. Study data: Lower extremity multilevel physiologic evaluation. Pressure measurement and pulse volume recording. Location: Vascular laboratory. Procedure: A vascular evaluation was performed with the patient in the supine position. Images were obtained using a [employer] Discovery vascular ultrasound machine. Ultrasound Report Arterial pressure indices: + + ---+ +-------+ +Location +Pressure (REST)*+Index (REST)+Comment+ + + ---+ +-------+ +R brachial +110 + +-------+ + + ---+ +-------+ +R high thigh+ +---- --------+Rt BKA + + + ---+ +-------+ +L brachial +123 + +-------+ + + ---+ +-------+ +L DP +132 +1.07 +-------+ + + ---+ +-------+ +L PT +143 +1.16 +-------+ + + ---+ +-------+ +L great toe +86 +0.70 +-------+ + + ---+ +-------+ Prepared and electronically signed by Ozzie Park MD 10/27/2021 13:55 Final Dictated: 10/27/2021 1:55 pm Dictating Physician: OZZIE PARK Signed Date and Time: 10/27/2021 1:55 pm Signed by: OZZIE PARK Cardiovascular ACCESSION EXAM DATE/TIME PROCEDURE [id number] 10/26/2021 13:46 EST VL PVR Arterial Doppler Lwr w/o Exercise CPT code 92593 Reason For Exam (VL PVR Arterial Doppler Lwr w/o Exercise) Wound healing potential Report [facility] Multilevel Lower Extremity Arterial Evaluation Report Patient Waldo : 1960 Study 10/26/2021 Name: Siobhan Cochran (61yrs) Date: Patient [id number] Age: 61 Account: [id number] ID: Gender: F Loc: 1ECB BP: Ordering Physician: Kevan Parekh Field Identification Specialist: Dacia Chandler RVT Interpreting Physician: Ozzie Park MD Cardiovascular Report Location: [facility] Indications: Non healing ulcer left lateral foot. Pt is a right BKA. Conclusions 1. Normal flow to the ankle with small vessel disease present on the left. 2. Left resting SINDHU is 1.16. This is within the normal range. PVR waveforms appear normal at rest 3. Left resting TBI is 0.70. These findings are abnormal. History: Risk factors: Former tobacco use. Hypertension. Study data: Lower extremity multilevel physiologic evaluation. Pressure measurement and pulse volume recording. Location: Vascular laboratory. Procedure: A vascular evaluation was performed with the patient in the supine position. Images were obtained using a [employer] Discovery vascular ultrasound machine. Arterial pressure indices: + + ---+-------- (more content not included)... [facility] Absolute lymphocyte counton 10-03-2021 Lymphocytes Auto (Unsp spec) [#/Vol] 0.92 10*3/uL 0.83-4.51 [facility] Work Phone: Basophil percentageon 2021 Basophils/100 WBC (Bld) 0.1 % 0-1 [facility] Work Phone: Chloride [Moles/Vol] 106 mmol/L 98-107 [facility] Work Phone: Eosinophils/100 WBC (Bld) 0.0 % 0-5 [facility] Work Phone: Glucose [Mass/Vol] 155 mg/dL 74-106 [facility] Work Phone: Comment on above: Fasting Glucose resu lt greater than or equal to 126 mg/dL suggests DIABETES MELLITUS per A.D.A. criteria.Please note revised GLUCOSE reference range effective 2017. Neutrophils (Bld) [#/Vol] 13.6 10*3/uL 2.0-7.7 [facility] Work Phone: Neutrophils/100 WBC (Bld) 87.7 % 47-70 [facility] Work Phone: Potassium [Moles/Vol] 4.2 mmol/L 3.5-5.1 [facility] Work Phone: Sodium [Moles/Vol] 138 mmol/L 136-145 [facility] Work Phone: WBC (Bld) [#/Vol] 15.6 10*3/uL 4.4-11.0 [facility] Work Phone: Blood erythrocytes count (nu mber/volume)on 10-03-2021 RBC (Bld) [#/Vol] 4.30 10*6/uL 4.2-5.4 [facility] Work Phone: Blood hemoglobin measurement (mass/volume)on 10-03-2021 Hemoglobin (Bld) [Mass/Vol] 11.9 g/dL 12.0-15.0 [facility] Work Phone: Blood lymphocytes/100 leukoc yteson 10-03-2021 Lymphocytes/100 WBC (Bld) 5.9 % 19-41 [facility] Work Phone: Blood monocytes/100 leukocyt eson 10-03-2021 Monocytes/100 WBC (Bld) 4.8 % 0-10 [facility] Work Phone: Blood platelet mean volumeon 10-03-2021 Platelet mean volume (Bld) [Entitic vol] 10.4 fL 6.2-12.0 [facility] Work Phone: Determination of erythrocyte mean corpuscular volume (MCV)on 10-03-2021 MCV (RBC) [Entitic vol] 86.7 fL 81-99 [facility] Work Phone: Hematocrit Auto (Bld) [Volum e fraction]on 10-03-2021 Hematocrit (Bld) [Volume fraction] 37.3 % 37-47 [facility] Work Phone: Laboratory - Chemistry and C hemistry - challengeon 10-03-2021 CO2 [Moles/Vol] 26.0 mmol/L 21.0-32.0 [facility] Work Phone: Urea nitrogen/Creatinine [Mass ratio] 26.6 mg/mg 10-20 [facility] Work Phone: Laboratory - Hematology and Cell countson 10-03-2021 Erythrocyte distribution width (RBC) [Entitic vol] 52.2 fL 35.1-43.9 [facility] Work Phone: Erythrocyte distribution width (RBC) [Ratio] 16.5 % 11.6-14.6 [facility] Work Phone: Immature granulocytes/100 WBC (Bld) 1.500 % 0.0-0.9 [facility] Work Phone: Comment on above: IG% - Immature Granu locytes (promyelocytes, myelocytes and metamyelocytes) > 1% indicates that a LEFT SHIFT is Present. MCH (RBC) [Entitic mass] 27.7 pg 27.0-32.0 [facility] Work Phone: Nucleated RBC/100 WBC (Bld) [Ratio] 0 % 0-5 [facility] Work Phone: MCHC Auto (RBC) [Mass/Vol]on 10-03-2021 MCHC (RBC) [Mass/Vol] 31.9 g/dL 32-36 [facility] Work Phone: No Panel Informationon 10-03 Estimated Creatinine Clearance Calc 68.34 ml/min [facility] Work Phone: Estimated GFR (MDRD) Amer 90 mL/min >60 [facility] Work Phone: Comment on above: GFR Calc Estimated GFR (MDRD) Non-Af Amer 74 mL/min >60 [facility] Work Phone: Comment on above: Non- GFR Calc Platelets bldon 10-03-2021 Platelets (Bld) [#/Vol] 289 10*3/uL 150-450 [facility] Work Phone: Serum or plasma calcium merissa urement (mass/volume)on 10-03-2021 Calcium [Mass/Vol] 9.2 mg/dL 8.5-10.1 [facility] Work Phone: Serum or plasma creatinine m easurement (mass/volume)on 10-03-2021 Creatinine [Mass/Vol] 0.83 mg/dL 0.55-1.02 [facility] Work Phone: Comment on above: The validity of the calculated GFR & GFRAA in patients over 70 years has not been determined. Clinical correlation is essential. Serum or plasma urea nitroge n measurement (mass/volume)on 10-03-2021 Urea nitrogen [Mass/Vol] 22 mg/dL 7-18 [facility] Work Phone: Thin prep Papanicolaou smear with manual screeningon 10-03-2021 Thin prep Papanicolaou smear with manual screening 6 5-15 [facility] Work Phone: No Panel Informationon 10-02 Influenza Types A,B Direct FA (MCKAYLA) [facility] Work Phone: CULT/STAIN - AEROBIC AND REFUGIO EROBICon 10-01-2021 CULT/STAIN - AEROBIC AND ANAEROBIC STAIN GRAM --> Status: F No polymorphonuclear cells/lpf. No organisms seen. No organisms seen. CULT./ST. BACTERIA --> Status: F No growth at 3 days. CULTURE ANAEROBE --> Status: F No growth of anaerobes at [address] [facility] [employer] (deja mi) [facility] Comment on above: Performed By: #### C XAAN ####[facility] [address] [place] [address] CULT/STAIN - AEROBIC AND ANAEROBIC STAIN GRAM --> Status: F No polymorphonuclear cells/lpf. No organisms seen. No organisms seen. CULT./ST. BACTERIA --> Status: F No growth at 3 days. CULTURE ANAEROBE --> Status: F No growth of anaerobes at [address] [facility] [employer] Comment on above: Performed By: #### B MP3, HEMDF #### [facility] [address] [place] [address] Laboratory - Chemistry and C hemistry - challengeon 09-30-2021 Natriuretic peptide B (Bld) [Mass/Vol] 75.6 pg/mL 0-100 [facility] Work Phone: No Panel Informationon 09-30 D-Dimer Quantitative (PE/DVT) 0.92 FEU/ug/m 0.27-0.49 [facility] Work Phone: Comment on above: D-Dimer ELEVATED (>0 .49): Additional studies and clinicalassessments are indicated to conclude diagnosis of:Deep Vein Thrombosis (DVT) or Pulmonary Embolism (PE)CRITICAL VALUE VERIFIED. CALLED TO GREER PERDOMO Andie Kent.RESULTS READ BACK BY SAME . Troponin I High Sensitivity 6 pg/mL 3.0-54.0 [facility] Work Phone: Comment on above: Please Note: New Jen t Units and Gender Specific Reference Ranges. For more information see Policy Stat Procedure Liberal High Sensitivity Troponin (TNIH) and attachments. CULT/STAIN - AEROBIC AND REFUGIO EROBICon 09-28-2021 CULT/STAIN - AEROBIC AND ANAEROBIC CULT./ST. BACTERIA --> Status: F Mixed skin pierce present. No Staphylococcus aureus isolated. No Pseudomonas aeruginosa isolated. No beta-hemolytic streptococcus isolated. No Staphylococcus aureus isolated. No Pseudomonas aeruginosa isolated. No beta-hemolytic streptococcus isolated. CULTURE ANAEROBE --> Status: F No growth of anaerobes at 5 days. 1 Organism Staphylococcus lugdunensis Moderate -- 1 Organism -- Antibiotic Result Intrp -- Nafcillin/Oxacillin(MCKAYLA) >= 4 R Inducible Clindamycin Resistant(MCKAYLA)Neg Neg Clindamycin(MCKAYLA) I Vancomycin(MCKAYLA) <= 0.5 S Trimeth/Sulfa(MCKAYLA) <= 10 S Linezolid(MCKAYLA) 1 S Gentamicin(MCKAYLA) <= 0.5 S Doxycycline(MCKAYLA) <= 0.5 S Tigecycline(MCKAYLA) <= 0.12 S Rifampin(MCKAYLA) <= 0.5 S Normal [email or web address] Comment on above: Performed By: #### B MP3, HEMDF #### [email or web address] [address] [place] [id number] Basic Metabolic Panelon 12-2 7-2021 Calcium [Mass/Vol] 9.0 mg/dL Normal 8.4-10.4 [facility] Comment on above: Performed By: #### B MP3 #### [facility] [address], [place] Anion gap [Moles/Vol] 8 mmol/L Normal 3-13 [facility] Comment on above: Performed By: #### B MP3 #### [facility] [address], [place] CO2 [Moles/Vol] 24 mmol/L Normal 22-30 [facility] Comment on above: Performed By: #### B MP3 #### [facility] [address], [place] Creatinine [Mass/Vol] 0.80 mg/dL Normal 0.52-1.25 [facility] Comment on above: Performed By: #### B MP3 #### [facility] [address], [place] GFR/1.73 sq M.predicted among blacks MDRD (S/P/Bld) [Vol rate/Area] mL/min/{1.73_m2} Normal >60 [facility] Comment on above: Performed By: #### B MP3 #### [facility] [address], [place] GFR/1.73 sq M.predicted among non-blacks MDRD (S/P/Bld) [Vol rate/Area] 79.0 mL/min/{1.73_m2} Normal >60 [facility] Comment on above: Result Comment: KDIG O guidelines provide the following GFR categories: Stage GFR(ml/min/1.73 m2) Terms G1 >=90 Normal or high G2 60-89 Mildly decreased* G3a 45-59 Mildly to moderately decreased G3b 30-44 Moderately to severely decreased G4 15-29 Severely decreased G5 <15 Kidney failure *Relative to young adult level. In the absence of evidence of kidney damage, neither GFR category G1 nor G2 fulfill the criteria for CKD. The CKD-EPI equation is validated in individuals 18 years of age and older. Currently the best equation for estimating glomerular filtration rate (GFR) from serum creatinine in children is the Bedside Bolton equation. It is less accurate in patients with extremes of muscle mass, restriction of dietary protein, ingestion of creatine, extra-renal metabolism of creatinine, or treatment with medications that affect renal tubular creatinine secretion. Performed By: #### B MP3 #### [facility] [address], [place] Glucose [Mass/Vol] 120 mg/dL High 70-100 [facility] Comment on above: Performed By: #### B MP3 #### [facility] [address], [place] Urea nitrogen [Mass/Vol] 12 mg/dL Normal 9-20 [facility] Comment on above: Performed By: #### B MP3 #### [place] [address], [place] Chloride [Moles/Vol] 105 mmol/L Normal 98-107 [facility] Comment on above: Performed By: #### B MP3 #### [place] [address], [place] Potassium [Moles/Vol] 4.1 mmol/L Normal 3.5-5.1 [facility] Comment on above: Performed By: #### B MP3 #### [place] [address], [place] Sodium [Moles/Vol] 137 mmol/L Normal 135-145 [facility] Comment on above: Performed By: #### B MP3 #### [place] [address], [place] Hemogram w/ Autodiffon 09-26 Abs Baso Cnt 0.0 10*3/uL Normal 0.0-0.2 [facility] Comment on above: Performed By: #### B MP3 #### [place] [address], [place] Abs Neutrophile Cnt 2.6 10*3/uL Normal 1.8-7.0 [facility] Comment on above: Performed By: #### B MP3 #### [place] [address], [place] Basophils/100 WBC (Bld) 0.8 % Normal 0.0-2.0 [facility] Comment on above: Performed By: #### B MP3 #### [facility] [address] [place] [address] Eosinophils (Bld) [#/Vol] 0.3 10*3/uL Normal 0.0-0.5 [facility] Comment on above: Performed By: #### B MP3 #### [facility] [address] [place] [address] Eosinophils/100 WBC (Bld) 6.6 % High 1.0-6.0 [facility] Comment on above: Performed By: #### B MP3 #### [facility] [address] [place] [address] Erythrocyte distribution width (RBC) [Ratio] 16.0 % High 11.5-14.5 [facility] Comment on above: Performed By: #### B MP3 #### [facility] [address] [place] [address] Granulocytes/100 WBC (Bld) 53.1 % Normal 40.0-80.0 [facility] Comment on above: Performed By: #### B MP3 #### [facility] [address] [place] [address] Hematocrit (Bld) [Volume fraction] 37.4 % Normal 35.0-47.0 [facility] Comment on above: Performed By: #### B MP3 #### [facility] [address] [place] [address] Hemoglobin (Bld) [Mass/Vol] 12.1 g/dL Normal 11.7-16.0 [facility] Comment on above: Performed By: #### B MP3 #### [facility] [address] [place] [address] Lymphocytes (Bld) [#/Vol] 1.2 10*3/uL Normal 1.0-4.3 [facility] Comment on above: Performed By: #### B MP3 #### [facility] [address] [place] [address] Lymphocytes/100 WBC (Bld) 24.9 % Normal 20.0-40.0 [facility] Comment on above: Performed By: #### B MP3 #### [facility] [address], [place] MCH (RBC) [Entitic mass] 28.0 pg Normal 26.0-34.0 [facility] Comment on above: Performed By: #### B MP3 #### [facility] [address], [place] MCHC 32.2 % Normal 32.0-36.0 [facility] Comment on above: Performed By: #### B MP3 #### [facility] [address], [place] MCV (RBC) [Entitic vol] 86.9 fL Normal 79.0-98.0 [facility] Comment on above: Performed By: #### B MP3 #### [facility] [address], [place] Monocytes (Bld) [#/Vol] 0.7 10*3/uL Normal 0.0-0.8 [facility] Comment on above: Performed By: #### B MP3 #### [facility] [address], [place] Monocytes/100 WBC (Bld) 14.6 % High 2.0-10.0 [facility] Comment on above: Performed By: #### B MP3 #### [facility] [address], [place] Platelet mean volume (Bld) [Entitic vol] 8.9 fL Normal 7.4-10.4 [facility] Comment on above: Performed By: #### B MP3 #### [facility] [address], [place] Platelets (Bld) [#/Vol] 205 10*3/uL Normal 140-440 [facility] Comment on above: Performed By: #### B MP3 #### [facility] [address], [place] RBC (Bld) [#/Vol] 4.31 10*6/uL Normal 3.80-5.20 [facility] Comment on above: Performed By: #### B MP3 #### [facility] [address] [place] [address] WBC (Bld) [#/Vol] 4.9 10*3/uL Normal 3.6-10.7 [facility] Comment on above: Performed By: #### B MP3 #### [facility] [address] [place] [address] Op Noteon 09-26-2021 Op Note Operative Note Patient name: Siobhan Haas : 1960 Date of surgery: 09/26/2021 Surgeon: Juju Santos DPM Clothes Drier Assembler: none Pre-operative Diagnosis: left ankle ulcer Post-operative Diagnosis: Same Procedure: 1. Left ankle irrigation and debridement Components used: none Anesthesia: general Estimated Blood Loss: less than 10cc Complications: None Specimens: pre and post debridement cultures Operative findings: wound ellipsed and closed primarily, no deep tracking, no abscess noted, lightly packed History of present illness: This unfortunate 61 year old female presented to hospital with post surgical wound dehiscence. She had surgery for peroneal tenodesis in August. She had since healed but relates that her walking boot rubbed a wound on her leg. She subsequently developed more pain and redness to the area and advised to come to hospital. Surgical excision of the lesion was recommended as she failed to improve over the past 24 hours on IV antibiotics. All risks and complications were discussed with the patient and she understands the severity of foot infections. Operative report: I met with Siobhan in [...] to normal structures that can lead to mcfp problems of pain or dysfunction, wound healing complications, and late or chronic pain as a result of the surgical intervention. In addition potentially life threatening complications that can occur at the time of surgery and after surgery were discussed including but not limited to deep vein thrombosis, pulmonary embolism, myocardial infarction, stroke and . I initialed her operative extremity and signed her consent form. Siobhan was then brought to the operating room and placed in the supine position on the Operating Room table. Care was taken to identify and pad all bony prominences. A general anesthetic was then given by the anesthesia staff and an LMA was placed by the anesthesia staff. At all times during the operative procedure the patient's head neck and airway were protected by the anesthesia staff. A well padded tourniquet was then placed on the calf. Total tourniquet time was less than 20 minutes. The left extremity was then prepped and draped in the usual orthopedic sterile fashion. A surgical timeout was then performed with the patient's identification, the procedure to be performed being reviewed with the consent form, verification that the patient had received preoperative antibiotics, and verification of the correct surgical side. Everyone in the operating room stopped what they were doing in order to participate in the timeout. This timeout was performed by myself, the circulating room nurse and the anesthesia staff. The patient's ASA was verified by the nurse machine printer and the anesthesia staff. Fire risk was assessed. An eshmark bandage was then used to exsanguinate blood from the extremity and the tourniquet was inflated to 250mmHg. Attention was then drawn to the operative site and the entire zone of infection was exposed. Scalpel was used to ellipse out the wound. No deep tracking was noted. This appeared to be a superficial wound dehiscence. No probe to tendon or any sinus tracks were noted. The peroneal tendons were not exposed and not continuous with the wound. Once an adequate debridement had been performed and I was comfortable that no additional debridement was necessary the wound was thoroughly irrigated with copious amounts of sterile saline. The tourniquet was dropped and a hyperemic response was noted to all digits. No active bleeding noted. The wound was then inspected before closure. Closure was achieved using 3-0 prolene in a simple interrupted fashion. A small area was packed with iodoform packing gauze. The foot was then dressed with xeroform, gauze, kerlix, and MINAL. The patient tolerated the procedure and anesthesia and was transferred to PACU with vital signs stable and vascular status intact to all digits of the foot. Following a period of post operative monitoring, the patient will be transferred back to the floor for continued medical management. Await culture results. She will follow with me or Dr. Mercado upon discharge. Normal [facility] Vancomycin Troughon 09-26-20 Vancomycin Trough 14.4 ug/mL Low 15.0-20.0 [facility] Comment on above: Result Comment: . Performed By: #### B MP3, HEMDF #### [facility] [address], [place] Comp Panel with Mg Reflexon 09-25-2021 ALP [Catalytic activity/Vol] 110 U/L Normal 38-126 [facility] Comment on above: Performed By: #### B MP3 #### [facility] [address], [place] ALT [Catalytic activity/Vol] 19 U/L Normal 0-34 [facility] Comment on above: Result Comment: The ALT test is performed by an updated assay method. Please note that the reference intervals have been changed and are now sex specific. Performed By: #### B MP3 #### [facility] [address], [place] Calcium [Mass/Vol] 9.0 mg/dL Normal 8.4-10.4 [facility] Comment on above: Performed By: #### B MP3 #### [facility] [address], [place] Glucose [Mass/Vol] 115 mg/dL High 70-100 [facility] Comment on above: Performed By: #### B MP3 #### [facility] [address], [place] Urea nitrogen [Mass/Vol] 13 mg/dL Normal 9-20 [facility] Comment on above: Performed By: #### B MP3 #### [facility] [address], [place] Anion gap [Moles/Vol] 7 mmol/L Normal 3-13 [facility] Comment on above: Performed By: #### B MP3 #### [facility] [address], [place] AST [Catalytic activity/Vol] 27 U/L Normal 15-46 [facility] Comment on above: Performed By: #### B MP3 #### [facility] [address] [place] [address] Bilirubin [Mass/Vol] 0.5 mg/dL Normal 0.2-1.3 [facility] Comment on above: Performed By: #### B MP3 #### [facility] [address] [place] [address] CO2 [Moles/Vol] 24 mmol/L Normal 22-30 [facility] Comment on above: Performed By: #### B MP3 #### [facility] [address] [place] [address] Creatinine [Mass/Vol] 0.84 mg/dL Normal 0.52-1.25 [facility] Comment on above: Performed By: #### B MP3 #### [facility] [address] [place] [address] GFR/1.73 sq M.predicted among blacks MDRD (S/P/Bld) [Vol rate/Area] 86.3 mL/min/{1.73_m2} Normal >60 [facility] Comment on above: Performed By: #### B MP3 #### [facility] [address] [place] [address] GFR/1.73 sq M.predicted among non-blacks MDRD (S/P/Bld) [Vol rate/Area] 74.4 mL/min/{1.73_m2} Normal >60 [facility] Comment on above: Result Comment: KDIG O guidelines provide the following GFR categories: Stage GFR(ml/min/1.73 m2) Terms G1 >=90 Normal or high G2 60-89 Mildly decreased* G3a 45-59 Mildly to moderately decreased G3b 30-44 Moderately to severely decreased G4 15-29 Severely decreased G5 <15 Kidney failure *Relative to young adult level. In the absence of evidence of kidney damage, neither GFR category G1 nor G2 fulfill the criteria for CKD. The CKD-EPI equation is validated in individuals 18 years of age and older. Currently the best equation for estimating glomerular filtration rate (GFR) from serum creatinine in children is the Bedside Bolton equation. It is less accurate in patients with extremes of muscle mass, restriction of dietary protein, ingestion of creatine, extra-renal metabolism of creatinine, or treatment with medications that affect renal tubular creatinine secretion. Performed By: #### B MP3 #### [facility] [address], [place] Protein [Mass/Vol] 6.8 g/dL Normal 6.3-8.2 [facility] Comment on above: Performed By: #### B MP3 #### [facility] [address], [place] Potassium [Moles/Vol] 4.0 mmol/L Normal 3.5-5.1 [facility] Comment on above: Performed By: #### B MP3 #### [facility] [address], [place] Sodium [Moles/Vol] 136 mmol/L Normal 135-145 [facility] Comment on above: Performed By: #### B MP3 #### [place] [address], [place] Albumin [Mass/Vol] 3.5 g/dL Normal 3.5-5.0 [facility] Comment on above: Performed By: #### B MP3 #### [place] [address], [place] Chloride [Moles/Vol] 105 mmol/L Normal 98-107 [facility] Comment on above: Performed By: #### B MP3 #### [facility] [address], [place] Hemogram w/ Autodiffon 09-25 Abs Baso Cnt 0.0 10*3/uL Normal 0.0-0.2 [facility] Comment on above: Performed By: #### B MP3 #### [facility] [address], [place] Abs Neutrophile Cnt 5.3 10*3/uL Normal 1.8-7.0 [facility] Comment on above: Performed By: #### B MP3 #### [facility] [address], [place] Basophils/100 WBC (Bld) 0.5 % Normal 0.0-2.0 [facility] Comment on above: Performed By: #### B MP3 #### [facility] [address] [place] [address] Eosinophils (Bld) [#/Vol] 0.2 10*3/uL Normal 0.0-0.5 [facility] Comment on above: Performed By: #### B MP3 #### [facility] [address] [place] [address] Eosinophils/100 WBC (Bld) 2.5 % Normal 1.0-6.0 [facility] Comment on above: Performed By: #### B MP3 #### [facility] [address] [place] [address] Erythrocyte distribution width (RBC) [Ratio] 16.0 % High 11.5-14.5 [facility] Comment on above: Performed By: #### B MP3 #### [facility] [address] [place] [address] Granulocytes/100 WBC (Bld) 77.0 % Normal 40.0-80.0 [facility] Comment on above: Performed By: #### B MP3 #### [facility] [address] [place] [address] Hematocrit (Bld) [Volume fraction] 35.8 % Normal 35.0-47.0 [facility] Comment on above: Performed By: #### B MP3 #### [facility] [address] [place] [address] Hemoglobin (Bld) [Mass/Vol] 11.5 g/dL Low 11.7-16.0 [facility] Comment on above: Performed By: #### B MP3 #### [facility] [address] [place] [address] Lymphocytes (Bld) [#/Vol] 0.8 10*3/uL Low 1.0-4.3 [facility] Comment on above: Performed By: #### B MP3 #### [facility] [address] [place] [address] Lymphocytes/100 WBC (Bld) 11.8 % Low 20.0-40.0 [facility] Comment on above: Performed By: #### B MP3 #### [facility] [address], [place] MCH (RBC) [Entitic mass] 27.6 pg Normal 26.0-34.0 [facility] Comment on above: Performed By: #### B MP3 #### [facility] [address], [place] MCHC 32.2 % Normal 32.0-36.0 [facility] Comment on above: Performed By: #### B MP3 #### [facility] [address], [place] MCV (RBC) [Entitic vol] 85.6 fL Normal 79.0-98.0 [facility] Comment on above: Performed By: #### B MP3 #### [facility] [address], [place] Monocytes (Bld) [#/Vol] 0.6 10*3/uL Normal 0.0-0.8 [facility] Comment on above: Performed By: #### B MP3 #### [facility] [address], [place] Monocytes/100 WBC (Bld) 8.2 % Normal 2.0-10.0 [facility] Comment on above: Performed By: #### B MP3 #### [facility] [address], [place] Platelet mean volume (Bld) [Entitic vol] 9.0 fL Normal 7.4-10.4 [facility] Comment on above: Performed By: #### B MP3 #### [facility] [address], [place] Platelets (Bld) [#/Vol] 212 10*3/uL Normal 140-440 [facility] Comment on above: Performed By: #### B MP3 #### [facility] [address], [place] RBC (Bld) [#/Vol] 4.18 10*6/uL Normal 3.80-5.20 [facility] Comment on above: Performed By: #### B MP3 #### [facility] [address], [place] WBC (Bld) [#/Vol] 6.9 10*3/uL Normal 3.6-10.7 [facility] Comment on above: Performed By: #### B MP3 #### [facility] [address], [place] STAIN GRAMon 09-25-2021 STAIN GRAM STAIN GRAM --> Statu s: F Few polymorphonuclear cells/lpf. Rare gram positive cocci in pairs. Rare gram positive cocci in pairs. Normal [facility] Comment on above: Performed By: #### B MP3, HEMDF #### [facility] [address], [place] Basic Metabolic Panelon 09-01 Anion gap [Moles/Vol] 7 mmol/L Normal 3-13 [facility] Comment on above: Performed By: #### B MP3 #### [facility] [address], [place] Calcium [Mass/Vol] 9.1 mg/dL Normal 8.4-10.4 [facility] Comment on above: Performed By: #### B MP3 #### [facility] [address], [place] CO2 [Moles/Vol] 25 mmol/L Normal 22-30 [facility] Comment on above: Performed By: #### B MP3 #### [facility] [address], [place] Glucose [Mass/Vol] 104 mg/dL High 70-100 [facility] Comment on above: Performed By: #### B MP3 #### [facility] [address], [place] Urea nitrogen [Mass/Vol] 13 mg/dL Normal 9-20 [facility] Comment on above: Performed By: #### B MP3 #### [facility] [address], [place] Creatinine [Mass/Vol] 0.85 mg/dL Normal 0.52-1.25 [facility] Comment on above: Performed By: #### B MP3 #### [facility] [address], [place] GFR/1.73 sq M.predicted among blacks MDRD (S/P/Bld) [Vol rate/Area] 85.1 mL/min/{1.73_m2} Normal >60 [facility] Comment on above: Performed By: #### B MP3 #### [facility] [address], [place] GFR/1.73 sq M.predicted among non-blacks MDRD (S/P/Bld) [Vol rate/Area] 73.4 mL/min/{1.73_m2} Normal >60 [facility] Comment on above: Result Comment: KDIG O guidelines provide the following GFR categories: Stage GFR(ml/min/1.73 m2) Terms G1 >=90 Normal or high G2 60-89 Mildly decreased* G3a 45-59 Mildly to moderately decreased G3b 30-44 Moderately to severely decreased G4 15-29 Severely decreased G5 <15 Kidney failure *Relative to young adult level. In the absence of evidence of kidney damage, neither GFR category G1 nor G2 fulfill the criteria for CKD. The CKD-EPI equation is validated in individuals 18 years of age and older. Currently the best equation for estimating glomerular filtration rate (GFR) from serum creatinine in children is the Bedside Bolton equation. It is less accurate in patients with extremes of muscle mass, restriction of dietary protein, ingestion of creatine, extra-renal metabolism of creatinine, or treatment with medications that affect renal tubular creatinine secretion. Performed By: #### B MP3 #### [facility] [address], [place] Chloride [Moles/Vol] 106 mmol/L Normal 98-107 [facility] Comment on above: Performed By: #### B MP3 #### [place] [address], [place] Potassium [Moles/Vol] 4.0 mmol/L Normal 3.5-5.1 [facility] Comment on above: Performed By: #### B MP3 #### [place] [address], [place] Sodium [Moles/Vol] 138 mmol/L Normal 135-145 [facility] Comment on above: Performed By: #### B MP3 #### [facility] [address] [place] [address] C-Reactive Proteinon 021 CRP [Mass/Vol] 10.8 mg/L High 0.0-9.9 [facility] Comment on above: Result Comment: . Performed By: #### B MP3 #### [facility] [address], [place] CR Ankle 3+ Views Lefton CR Ankle 3+ Views Left Patient Name: SIOBHAN TURNER Diagnostic Radiology ACCESSION EXAM DATE/TIME PROCEDURE ORDERING PROVIDER [id number] 09/24/2021 16:10 EST CR Ankle 3+ Views Left [id number] MCMAHAN CPT code 93008 Reason For Exam (CR Ankle 3+ Views Left) L ankle pain Report Clinical Information: Left ankle pain. No provided history of trauma. Left ankle, portable, 1604: Portable AP, oblique and lateral views demonstrate no evidence of acute fracture or dislocation. The ankle mortise and talar dome are intact. The subtalar joint is unremarkable in appearance. The other joints are well-maintained. There is no bone erosion or periosteal reaction. The base of the fifth metatarsal is intact. Erect generalized soft tissue swelling about the ankle radius laterally. Impression: Soft tissue swelling about the ankle greatest laterally without other significant radiographic abnormality. Report Dictated on Final Dictated: 09/24/2021 4:54 pm Dictating Physician: MD MEJIA HARLAN Signed Date and Time: 09/24/2021 4:55 pm Signed by: MD MEJIA HARLAN Transcribed Date and Time: 09/24/2021 4:54 Normal [facility] CR Chest Portableon 09-24-20 21 CR Chest Portable Patient Name: SIOBHAN MCINTOSH Diagnostic Radiology ACCESSION EXAM DATE/TIME PROCEDURE ORDERING PROVIDER [id number] 09/24/2021 19:38 EST CR Chest Portable [id number] -TERESA ANN CPT code 70786 Reason For Exam (CR Chest Portable) Pre-op clearance Report CLINICAL INFORMATION: Preoperative chest x-ray for unspecified surgery. CHEST X-RAY, PORTABLE, 1927: An AP portable view is compared to the prior examination of 08/06/2020. The projection is lordotic. The examination is underpenetrated secondary to large body habitus. There is no abnormality of the mediastinum or cardiac silhouette. No pleural effusion, vascular congestion, focal consolidation or pneumothorax is seen. A spinal stimulator electrode projects on the lower thoracic spine. IMPRESSION: Underpenetration and lordotic projection. No evidence of acute cardiopulmonary process or significant interval change. Report Dictated on Final Dictated: 09/24/2021 7:32 pm Dictating Physician: MD MEJIA HARLAN Signed Date and Time: 09/24/2021 7:33 pm Signed by: MD MEJIA HARLAN Transcribed Date and Time: 09/24/2021 7:32 Normal [facility] CR Foot Complete 3+ Views Le fton 09-24-2021 CR Foot Complete 3+ Views Left Patient Name: SIOBHAN HAAS Diagnostic Radiology ACCESSION EXAM DATE/TIME PROCEDURE ORDERING PROVIDER [id number] 09/24/2021 15:01 EST CR Foot Complete 3+ [id number] -ZAID MARIAI Views Left CPT code 02583 Reason For Exam (CR Foot Complete 3+ Views Left) edema and erythema surrounding incision site, lateral ankle Report CLINICAL INFORMATION: Left hindfoot redness and swelling. Recent unspecified ankle surgery. Left foot: COMPARISON: 01/21/2021. AP, oblique and lateral views demonstrate no evidence of acute fracture or dislocation. The digits are in flexion limiting evaluation. There is narrowing of the first metatarsophalangeal joint with mild lateral subluxation of the proximal phalanx similar to prior examination. There is narrowing of multiple interphalangeal joints. There has been a remote resection of the head of the proximal phalanx of the fifth toe. No bone erosion or periosteal reaction is seen. There is soft tissue swelling about the hindfoot and included ankle. There are no other significant abnormal soft tissue densities. IMPRESSION: Soft tissue swelling of the hindfoot and included ankle. Degenerative and postsurgical changes of the digits as described. No other significant radiographic abnormality Report Dictated on Final Dictated: 09/24/2021 3:01 pm Dictating Physician: MD MEJIA HARLAN Signed Date and Time: 09/24/2021 3:05 pm Signed by: MD MEJIA HARLAN Transcribed Date and Time: 09/24/2021 3:01 [facility] ED Provider Noteon ED Provider Note Emergency Department Encounter [facility] EMERGENCY DEPT Patient: Siobhan Haas : 1960 Date of Evaluation: 09/24/2021 ED Provider: Mariia Mar PA-C As the [id number], I performed a medical screening history and physical exam on this patient. HISTORY OF PRESENT ILLNESS In brief, Siobhan Haas is a 61 y.o. female that presents for left ankle pain and swelling s/p surgery 08/04/21. She reports that she feels the incision dehisced and is concerned for infection. Started on Bactrim a few days ago. Woke up today with increased pain and swelling, extending throughout entire foot. Some clear drainage. Denies fever or chills. Oxycodone taken without relief. States that last time she had a procedure done on the other extremity, she formed a hematoma under the skin and had to have it drained. Instructed by PCP to come to ED for IV antibiotics +/- surgery. PHYSICAL EXAM ED Triage Vitals Enc Vitals Group BP 09/24/21 1350 (!) 140/89 Pulse 09/24/21 1350 87 Resp 09/24/21 1350 18 Temp 09/24/21 1350 98.4 ?F (36.9 ?C) Temp Source 09/24/21 1350 Temporal SpO2 09/24/21 1350 96 % Weight 09/24/21 1346 (!) 320 lb (145.2 kg) Height 09/24/21 1346 5' 7 (1.702 m) Head Circumference -- Peak Flow -- Pain Score -- Pain Loc -- Pain Edu? -- Excl. in GC? -- On brief exam, patient is in no acute distress and appears well. Left foot with edema and moderate tenderness. DP and PT pulses intact. Sensory and motor function intact. Area of fluctuance just superior to incision site. No drainage appreciated on my exam. Respirations even and unlabored. We will initiate diagnostics/treatments as indicated and place in main ED as soon as available. Mariia Mar PA-C [employer] Mariia Mar PA-C 09/24/21 1403 [facility] ED Provider Note ------- Attestation signed by Rigo Lr MD at 09/24/2021 6:14 PM Emergency Medicine Attending Please see previously documented note. Rigo Lr MD Emergency Department Encounter [facility] EMERGENCY DEPT Patient: Siobhan Haas : 1960 Date of Evaluation: 09/24/2021 ED Provider: Catie Graham DO Chief Complaint Chief Complaint Patient presents with ? Ankle Pain UNALAKLEET I wore a N95 mask, gloves, and goggles for the entirety of this encounter. Siobhan Haas is a 61 y.o. female who presents to the emergency department for concern over her incision site wound infection. Patient had a left peroneus longus tenolysis on August 04. This was with Dr. Mercado. Patient called into Dr. Mercado's office and sent him a picture of her left ankle in her incision site. Patient has been in a Aircast and states that that has been rubbing up against the incision site. Dr. Mercado's office was concerned that she might need antibiotics so she was prescribed Bactrim. Patient states that she has been taking this over the past couple of days. States that she has not been getting any better however. She called Dr. Mercado's office again. Their office advised her to go to the ED for the need for potential IV antibiotics and admission. Denies any fevers, chills, nausea, vomiting, abdominal pain. Has pain with ambulating on L ankle/foot. Has right BKA. ROS: At least 10 systems reviewed and otherwise acutely negative except as in the UNALAKLEET. Past History Past Medical History: Diagnosis Date ? 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 Asthma ? Cellulitis ? Constipation ? Depression ? Fibromyalgia ? GERD (gastroesophageal reflux disease) ? Hx of right BKA ([facility]) ? Hypertension ? Morbidly obese ([facility]) 02/03/2019 BMI 50.52 ? On home O2 ? FAY treated with BiPAP ? Osteoarthritis ? Osteomyelitis of right foot ([facility]) SCHEDULED FOR THE SURGERY ON 02/11/2019 ? Seasonal allergies ? Shortness of breath ? URSULA (stress urinary incontinence, female) ? Vertigo Past Surgical History: Procedure Laterality Date ? ABDOMINOPLASTY ? ABSCESS DRAINAGE Right 08/07/2020 I&D of right BKA hematoma ? BREAST SURGERY 2006 and abdomin removal for excess ? COLONOSCOPY ? ENDOSCOPY, COLON, DIAGNOSTIC ? FOOT SURGERY Right 2018 IN [place] ? FOOT SURGERY Right 02/11/2019 ? FOOT SURGERY Right 04/08/2019 I&D right foot with antibiotic spacer ? FOOT SURGERY Right 04/24/2019 I&D;, external fixator ? FOOT SURGERY Left 08/04/2021 peroneus longus tenolysis - Dr Gamino ? HYSTERECTOMY 1997 ? INCONTINENCE SURGERY 11/15/2015 synthetic mid urethral sling,cystoscopy ? JOINT REPLACEMENT ? LIPOMA RESECTION Right 2014 shoulder ? ORTHOPEDIC SURGERY Right 04/01/2019 I&D with removal hardware and antibiotic spacer placed ? OTHER SURGICAL HISTORY 09/21/2016 INTERSTIM STAGE II, COMPLEX ANALYSIS OF NEUROSTIMULATOR ? OTHER SURGICAL HISTORY NERVE BLOCKS FROM PAIN MANAGEMENT ? OTHER SURGICAL HISTORY Right 03/07/2019 debridement of right foot ? OTHER SURGICAL HISTORY Right 04/02/2019 R foot skin graft/flap, wound debridement/Wound vac removal ? OTHER SURGICAL HISTORY Right 04/22/2019 right foot I and D ? OTHER SURGICAL HISTORY Right 05/06/2019 Right Below Knee Amputation (CPT 86902), #2 Excisional debridement right iliac crest (wound 7 cm length, 3 cm width, 7 cm depth) ? OTHER SURGICAL HISTORY 07/27/2020 Excision of scar tissue, neuroma RIGHT below knee amputation ? TONSILLECTOMY ? TOTAL KNEE ARTHROPLASTY Left 2012 ARTHROSCOPY FIRST AND KNEE REPLACED ? WISDOM TOOTH EXTRACTION Social History Socioeconomic History ? Marital status: Spouse name: None ? Number of children: None ? Years of education: None ? Highest education level: None Occupational History ? Occupation: disability Tobacco Use ? Smoking status: Former Smoker Packs/day: 0.15 Years: 10.00 Pack years: 1.50 Types: Cigarettes Quit date: 10/01/1981 Years since quittin.0 ? Smokeless tobacco: Never Used Vaping Use ? Vaping Use: Never used Substance and Sexual Activity ? Alcohol use: Yes Alcohol/week: 0.0 standard drinks Comment: occasionally ? Drug use: No ? Sexual activity: Never Other Topics Concern ? None Social History Narrative Has been in rehab facility in [place] Lives alone, son close Friends help Social Determinants of Health Financial Resource Strain: ? Difficulty of Paying Living Expenses: Not on file Food Insecurity: ? Worried About Running Out of Food in the Last Year: Not on file ? Ran Out of Food in the Last Year: Not on file Transportation Needs: ? Lack of Transportation (Medical): Not on file ? Lack of Transportation (Non-Medical): (more content not included)... Normal [facility] Hemogramon 09-24-2021 Erythrocyte distribution width (RBC) [Ratio] 16.3 % High 11.5-14.5 [facility] Comment on above: Performed By: #### B MP3 #### [facility] [address] [place] [address] Hematocrit (Bld) [Volume fraction] 37.7 % Normal 35.0-47.0 [facility] Comment on above: Performed By: #### B MP3 #### [facility] [address] [place] [address] Hemoglobin (Bld) [Mass/Vol] 12.0 g/dL Normal 11.7-16.0 [facility] Comment on above: Performed By: #### B MP3 #### [facility] [address], [place] MCH (RBC) [Entitic mass] 27.3 pg Normal 26.0-34.0 [facility] Comment on above: Performed By: #### B MP3 #### [facility] [address], [place] MCHC 31.9 % Low 32.0-36.0 [facility] Comment on above: Performed By: #### B MP3 #### [facility] [address], [place] MCV (RBC) [Entitic vol] 85.6 fL Normal 79.0-98.0 [facility] Comment on above: Performed By: #### B MP3 #### [place] [address], [place] Platelet mean volume (Bld) [Entitic vol] 8.5 fL Normal 7.4-10.4 [facility] Comment on above: Performed By: #### B MP3 #### [place] [address], [place] Platelets (Bld) [#/Vol] 245 10*3/uL Normal 140-440 [facility] Comment on above: Performed By: #### B MP3 #### [place] [address], [place] RBC (Bld) [#/Vol] 4.41 10*6/uL Normal 3.80-5.20 [facility] Comment on above: Performed By: #### B MP3 #### [place] [address], [place] WBC (Bld) [#/Vol] 7.3 10*3/uL Normal 3.6-10.7 [facility] Comment on above: Performed By: #### B MP3 #### [place] [address], [place] Prothrombin Timeon INR 1.0 Normal 0.9-1.1 [facility] Comment on above: Result Comment: Alexis mmended Anticoagulant Therapy: SEE BELOW ----- INR of 2.0 - 3.0 : - Prophylaxis of Venous Thrombosis (high-risk surgery) - Treatment of Venous Thrombosis - Treatment of Pulmonary Embolism (Includes tissue heart valves, Acute Myocardial Infarction to prevent systemic embolism, Valvular Heart Disease, and Atrial Fibrillation) ----- INR of 2.5 - 3.5 : - Mechanical Prosthetic Valves (high risk) - If oral anticoagulant therapy is used to prevent Myocardial Infarction Performed By: #### B MP3 #### [facility] [employer] ([facility] [facility]) [facility] [address], [place] PT Coag (PPP) [Time] 10.9 s Normal 9.0-12.0 [facility] [employer] ([facility] [facility] Comment on above: Result Comment: . Performed By: #### B MP3 #### [facility] [employer] [facility] [address], [place] Sed Rateon 09-24-2021 Sed Rate 32 mm/h High 0-20 [facility] Comment on above: Performed By: #### B MP3 #### [facility] [employer] [facility] [address], [place] TS GELon 09-24-2021 TS GEL ABO Group: O Rh, Gel: POS Antibody Screen Gel: NEG Normal [facility] Comment on above: Performed By: #### T SGL ####[facility] LABORATORYOrdered By: Jonelle Overton on 09-07-2021 Albumin BCP dye [Mass/Vol] 3.9 G/dL Invalid Interpretation Code 3.4 - 4.8 G/dL AO ADM SS Albumin/Globulin [Mass ratio] 1.0 {ratio} Invalid Interpretation Code 1.1 - 2.5 ratio AO ADM SS ALP [Catalytic activity/Vol] 151 U/L Invalid Interpretation Code 40 - 135 U/L AO ADM SS ALT With P-5'-P [Catalytic activity/Vol] 30 U/L Invalid Interpretation Code 14 - 59 U/L AO ADM SS AST With P-5'-P [Catalytic activity/Vol] 18 U/L Invalid Interpretation Code 10 - 40 U/L AO ADM SS Bilirubin [Mass/Vol] 0.5 mg/dL Invalid Interpretation Code 0.2 - 1.0 mg/dL AO ADM SS C-Reactive Protein mg/dL Invalid Interpretation Code 0.0 - 0.9 mg/dL AO Chemistry S Calcium [Mass/Vol] 9.4 mg/dL Invalid Interpretation Code 8.4 - 10.2 mg/dL AO ADM SS Chloride [Moles/Vol] 102 mmol/L Invalid Interpretation Code 98 - 107 mmol/L AO ADM SS CO2 [Moles/Vol] 26 mmol/L Invalid Interpretation Code 23 - 31 mmol/L AO ADM SS Creatinine [Mass/Vol] 0.83 mg/dL Invalid Interpretation Code 0.55 - 1.02 mg/dL AO ADM SS Electrolyte Balance 13.0 mEq/L Invalid Interpretation Code AO ADM SS Fibrin D-dimer DDU (PPP) [Mass/Vol] 263 ng/mL D-DU Invalid Interpretation Code 0 - 230 ng/mL D-DU AO Coag SS Globulin 4.0 G/dL Invalid Interpretation Code AO ADM SS Glucose [Mass/Vol] 112 mg/dL Invalid Interpretation Code 80 - 115 mg/dL AO ADM SS Potassium [Moles/Vol] 4.0 mmol/L Invalid Interpretation Code 3.5 - 5.1 mmol/L AO ADM SS Protein [Mass/Vol] 7.9 G/dL Invalid Interpretation Code 6.4 - 8.2 G/dL AO ADM SS Sodium [Moles/Vol] 141 mmol/L Invalid Interpretation Code 136 - 145 mmol/L AO ADM SS Urea nitrogen [Mass/Vol] 15 mg/dL Invalid Interpretation Code 7 - 18 mg/dL AO ADM SS Urea nitrogen/Creatinine [Mass ratio] 18 ratio Invalid Interpretation Code 7 - 27 ratio AO ADM SS LABORATORYOrdered By: Tiffanie Lund on 09-07-2021 Basophil, Absolute 0.10 103/mcL Invalid Interpretation Code 0.00 - 0.19 10^3/mcL AO Auto Heme SS Basophils/100 WBC (Bld) 1.0 % Invalid Interpretation Code 0.0 - 2.5 % AO Auto Heme SS Eosinophil, Absolute 0.40 103/mcL Invalid Interpretation Code 0.00 - 0.40 10^3/mcL AO Auto Heme SS Eosinophils/100 WBC (Bld) 3.2 % Invalid Interpretation Code 0.0 - 7.0 % AO Auto Heme SS Erythrocyte distribution width (RBC) [Ratio] 15.9 % Invalid Interpretation Code 11.5 - 14.5 % AO Auto Heme SS Hematocrit (Bld) [Volume fraction] 42.4 % Invalid Interpretation Code 37.0 - 47.0 % AO Auto Heme SS Hemoglobin (Bld) [Mass/Vol] 13.8 G/dL Invalid Interpretation Code 12.0 - 16.0 G/dL AO Auto Heme SS Lymphocyte, Absolute 2.90 103/mcL Invalid Interpretation Code 0.77 - 3.85 10^3/mcL AO Auto Heme SS Lymphocytes/100 WBC (Bld) 23.5 % Invalid Interpretation Code 10.0 - 50.0 % AO Auto Heme SS MCH (RBC) [Entitic mass] 27.5 pg Invalid Interpretation Code 27.0 - 31.2 pg AO Auto Heme SS MCHC (RBC) [Mass/Vol] 32.7 G/dL Invalid Interpretation Code 33.0 - 37.0 G/dL AO Auto Heme SS MCV (RBC) [Entitic vol] 84.1 fL Invalid Interpretation Code 80.0 - 94.0 fL AO Auto Heme SS Monocyte, Absolute 1.00 103/mcL Invalid Interpretation Code 0.15 - 1.00 10^3/mcL AO Auto Heme SS Monocytes/100 WBC (Bld) 8.6 % Invalid Interpretation Code 1.7 - 13.0 % AO Auto Heme SS Neutrophil, Absolute 7.80 103/mcL Invalid Interpretation Code 2.85 - 6.16 10^3/mcL AO Auto Heme SS Neutrophils/100 WBC (Bld) 63.7 % Invalid Interpretation Code 37.0 - 80.0 % AO Auto Heme SS Platelet mean volume (Bld) [Entitic vol] 9.3 fL Invalid Interpretation Code 7.4 - 10.4 fL AO Auto Heme SS Platelets (Bld) [#/Vol] 254 103/mcL Invalid Interpretation Code 130 - 400 10^3/mcL AO Auto Heme SS RBC (Bld) [#/Vol] 5.04 106/mcL Invalid Interpretation Code 4.20 - 5.40 10^6/mcL AO Auto Heme SS WBC (Bld) [#/Vol] 12.20 103/mcL Invalid Interpretation Code 4.60 - 10.80 10^3/mcL AO Auto Heme SS LABORATORYOrdered By: SYSTEM SYSTEM on 09-07-2021 GFR 84 ml/min/1.73sqm Invalid Interpretation Code AO Chemistry S GFR Non- 70 ml/min/1.73sqm Invalid Interpretation Code AO Chemistry S OPERATIVE REPORTOrdered By: 3m Scanning on 08-04-2021 [employer] Work Phone: Basic Metabolic Panelon 10-2 Anion gap [Moles/Vol] 6 mmol/L Normal 3-13 [facility] Comment on above: Performed By: #### B MP3, HEMOG ####[facility] [address] [place] [address] Calcium [Mass/Vol] 9.3 mg/dL Normal 8.4-10.4 [facility] Comment on above: Performed By: #### B MP3, HEMOG ####[facility] [address] [place] [address] CO2 [Moles/Vol] 26 mmol/L Normal 22-30 [facility] Comment on above: Performed By: #### B MP3, HEMOG ####[facility] [address] [place] [address] Glucose [Mass/Vol] 102 mg/dL High 70-100 [facility] Comment on above: Performed By: #### B MP3, HEMOG ####[facility] [address] [place] [address] Urea nitrogen [Mass/Vol] 19 mg/dL Normal 9-20 [facility] Comment on above: Performed By: #### B MP3, HEMOG ####[facility] [address] [place] [address] Creatinine [Mass/Vol] 0.73 mg/dL Normal 0.52-1.25 [facility] Comment on above: Performed By: #### B MP3, HEMOG ####[facility] [address] [place] [address] GFR/1.73 sq M.predicted among blacks MDRD (S/P/Bld) [Vol rate/Area] mL/min/{1.73_m2} Normal >60 [facility] Comment on above: Performed By: #### B MP3, HEMOG ####[facility] [address] [place] [address] GFR/1.73 sq M.predicted among non-blacks MDRD (S/P/Bld) [Vol rate/Area] 88.3 mL/min/{1.73_m2} Normal >60 [facility] Comment on above: Result Comment: KDIG O guidelines provide the following GFR categories: Stage GFR(ml/min/1.73 m2) Terms G1 >=90 Normal or high G2 60-89 Mildly decreased* G3a 45-59 Mildly to moderately decreased G3b 30-44 Moderately to severely decreased G4 15-29 Severely decreased G5 <15 Kidney failure *Relative to young adult level. In the absence of evidence of kidney damage, neither GFR category G1 nor G2 fulfill the criteria for CKD. The CKD-EPI equation is validated in individuals 18 years of age and older. Currently the best equation for estimating glomerular filtration rate (GFR) from serum creatinine in children is the Bedside Bolton equation. It is less accurate in patients with extremes of muscle mass, restriction of dietary protein, ingestion of creatine, extra-renal metabolism of creatinine, or treatment with medications that affect renal tubular creatinine secretion. Performed By: #### B MP3, HEMOG ####[facility] [facility] [place] [address] Chloride [Moles/Vol] 108 mmol/L High 98-107 [facility] Comment on above: Performed By: #### B MP3, HEMOG ####[address] [place] [address] Potassium [Moles/Vol] 4.2 mmol/L Normal 3.5-5.1 [facility] Comment on above: Performed By: #### B MP3, HEMOG ####[address] [address] Sodium [Moles/Vol] 139 mmol/L Normal 135-145 [facility] Comment on above: Performed By: #### B MP3, HEMOG ####[address] [place] [address] Basic Metabolic PanelOrdered By: Rusty Mercado on 07-28-2021 Anion gap [Moles/Vol] 6 mmol/L 3 - 13 mmol/L [facility] Work Phone: Calcium [Mass/Vol] 9.3 mg/dL 8.4 - 10. 4 mg/dL [facility] Work Phone: Chloride [Moles/Vol] 108 mmol/L High 98 - 10 7 mmol/L [facility] Work Phone: [phone] CO2 [Moles/Vol] 26 mmol/L 22 - 30 mmol/L [facility] Work Phone: [phone] Creatinine [Mass/Vol] 0.73 mg/dL 0.52 - 1.25 mg/dL [facility] Work Phone: EGFR IF NonAfrican Burkinan 88.3 mL/min >60 [facility] Work Phone: Comment on above: KDIGO guidelines pro vide the following GFR categories: Stage GFR(ml/min/1.73 m2) Terms G1 >=90 Normal or high G2 60-89 Mildly decreased* G3a 45-59 Mildly to moderately decreased G3b 30-44 Moderately to severely decreased G4 15-29 Severely decreased G5 <15 Kidney failure *Relative to young adult level. In the absence of evidence of kidney damage, neither GFR category G1 nor G2 fulfill the criteria for CKD. The CKD-EPI equation is validated in individuals 18 years of age and older. Currently the best equation for estimating glomerular filtration rate (GFR) from serum creatinine in children is the Bedside Bolton equation. It is less accurate in patients with extremes of muscle mass, restriction of dietary protein, ingestion of creatine, extra-renal metabolism of creatinine, or treatment with medications that affect renal tubular creatinine secretion. GFR/1.73 sq M.predicted among blacks MDRD (S/P/Bld) [Vol rate/Area] mL/min/{1.73_m2} >60 mL/min [facility] Work Phone: Glucose [Mass/Vol] 102 mg/dL High 70 - 100 mg/dL [facility] Work Phone: Interpretation and review of laboratory results Abnormal [employer] Work Phone: Potassium [Moles/Vol] 4.2 mmol/L 3.5 - 5.1 mmol/L [facility] Work Phone: Sodium [Moles/Vol] 139 mmol/L 135 - 145 mmol/L [facility] Work Phone: Urea nitrogen (BldV) [Mass/Vol] 19 mg/dL 9 - 20 mg/dL [facility] Work Phone: Test Performed by [facility], [address] [place] [address] [facility] Work Phone: [employer] Work Phone: CBCOrdered By: Rusty Mercado on 07-28-2021 Hematocrit (Bld) [Volume fraction] 40.5 % 35.0 - 47.0 % [facility] Work Phone: Hemoglobin.gastrointes tinal spec 1 Ql (Stl) 13.1 g/dL 11.7 - 16.0 g/dL [facility] Work Phone: ) Interpretation and review of laboratory results Abnormal [facility] Work Phone: MCH (RBC) [Entitic mass] 28.0 pg 26.0 - 34.0 pg [facility] Work Phone: MCHC (RBC) [Mass/Vol] 32.2 % 32.0 - 36.0 % [facility] Work Phone: MCV (RBC) [Entitic vol] 86.7 fL 79.0 - 98.0 fL [facility] Work Phone: Platelet distribution width (Bld) [Ratio] 16.2 % High 11.5 - 14.5 % [facility] Work Phone: Platelet mean volume (Bld) [Entitic vol] 8.5 fL 7.4 - 10.4 fL [facility] Work Phone: Platelets (Bld) [#/Vol] 270 10*3/uL 140 - 440 10*3/uL [facility] Work Phone: ) 222 RBC (Bld) [#/Vol] 4.67 10*6/uL 3.80 - 5.20 10*6/uL [facility] Work Phone: 222 WBC (Bld) [#/Vol] 6.0 10*3/uL 3.6 - 10.7 10*3/uL [facility] Work Phone: Test Performed by [facility], [address] [place], [place] [address] [facility] Work Phone: [facility] Work Phone: ) 222 Hemogramon 07-28-2021 Erythrocyte distribution width (RBC) [Ratio] 16.2 % High 11.5-14.5 [facility] [employer] [facility] Comment on above: Performed By: #### B MP3, HEMOG ####[facility] [place] [address] Hematocrit (Bld) [Volume fraction] 40.5 % Normal 35.0-47.0 [facility] Comment on above: Performed By: #### B MP3, HEMOG ####[facility] [place] [address] Hemoglobin (Bld) [Mass/Vol] 13.1 g/dL Normal 11.7-16.0 [facility] Comment on above: Performed By: #### B MP3, HEMOG ####[facility] [place] [address] MCH (RBC) [Entitic mass] 28.0 pg Normal 26.0-34.0 [facility] Comment on above: Performed By: #### B MP3, HEMOG ####[place] [address] [place] [address] MCHC 32.2 % Normal 32.0-36.0 [facility] Comment on above: Performed By: #### B MP3, HEMOG ####[facility] [place] [address] MCV (RBC) [Entitic vol] 86.7 fL Normal 79.0-98.0 [facility] Comment on above: Performed By: #### B MP3, HEMOG ####[place] [address] [place] [address] Platelet mean volume (Bld) [Entitic vol] 8.5 fL Normal 7.4-10.4 [facility] Comment on above: Performed By: #### B MP3, HEMOG ####[facility] [place] [address] Platelets (Bld) [#/Vol] 270 10*3/uL Normal 140-440 [facility] Comment on above: Performed By: #### B MP3, HEMOG ####[facility] [place] [address] RBC (Bld) [#/Vol] 4.67 10*6/uL Normal 3.80-5.20 [facility] Comment on above: Performed By: #### B MP3, HEMOG ####[facility] [place] [address] WBC (Bld) [#/Vol] 6.0 10*3/uL Normal 3.6-10.7 [facility] Comment on above: Performed By: #### B MP3, HEMOG ####[facility] [place] [address] Basic Metabolic Panel w/ Ref margo to MGon 08-18-2020 Anion gap [Moles/Vol] 11 mmol/L [place], [place] Calcium [Mass/Vol] 9.4 mg/dL 8.4 - 10. 4 mg/dL [place], [place] Chloride [Moles/Vol] 105 mmol/L 98 - 10 7 mmol/L [place] CO2 [Moles/Vol] 21 mmol/L Low 22 - 30 mmol/L [place] Creatinine [Mass/Vol] 0.8 mg/dL 0.52 - 1.25 mg/dL [place] EGFR IF NonAfrican Burkinan 79.6 mL/min >60 [place] Comment on above: KDIGO guidelines pro vide the following GFR categories: Stage GFR(ml/min/1.73 m2) Terms G1 >=90 Normal or high G2 60-89 Mildly decreased* G3a 45-59 Mildly to moderately decreased G3b 30-44 Moderately to severely decreased G4 15-29 Severely decreased G5 <15 Kidney failure *Relative to young adult level. In the absence of evidence of kidney damage, neither GFR category G1 nor G2 fulfill the criteria for CKD. The CKD-EPI equation is validated in individuals 18 years of age and older. Currently the best equation for estimating glomerular filtration rate (GFR) from serum creatinine in children is the Bedside Bolton equation. It is less accurate in patients with extremes of muscle mass, restriction of dietary protein, ingestion of creatine, extra-renal metabolism of creatinine, or treatment with medications that affect renal tubular creatinine secretion. GFR/1.73 sq M predicted among blacks MDRD (S/P/Bld) [Vol rate/Area] mL/min/{1.73_m2} >60 mL/min [place], [place] Glucose [Mass/Vol] 170 mg/dL High 70 - 100 mg/dL [place] Interpretation and review of laboratory results Abnormal [place] Potassium [Moles/Vol] 5.0 mmol/L 3.5 - 5.1 mmol/L [place] Sodium [Moles/Vol] 137 mmol/L 135 - 145 mmol/L [place] Urea nitrogen [Mass/Vol] 18 mg/dL 7 - 20 mg/dL [place] Test Performed by [facility], [address] [place] [address] [place], [place] CBC auto differentialon 08-01 Absolute Baso # 0.0 10*3/uL 0 - 0.2 10*3/uL [place] Absolute Neut # 10.5 10*3/uL High 1.8 - 7 10*3/uL [place] Basophils/100 WBC (Bld) 0.2 % 0 - 2 % [place] Eosinophils (Bld) [#/Vol] 0.0 10*3/uL 0 - 0.5 10*3/uL [place] Eosinophils/100 WBC (Bld) 0.0 % Low 1 - 6 % [place] Erythrocyte distribution width (RBC) [Ratio] 14.7 % High 11.5 - 14.5 % [place] Granulocytes/100 WBC (Bld) 89.8 % High 40 - 80 % [place] Hematocrit (Bld) [Volume fraction] 39.0 % 35 - 47 % [place] Hemoglobin (Bld) [Mass/Vol] 12.6 g/dL 11.7 - 16 g/dL [place] Interpretation and review of laboratory results Abnormal [place] Lymphocytes (Bld) [#/Vol] 0.8 10*3/uL Low 1 - 4.3 10*3/uL [place] Lymphocytes/100 WBC (Bld) 7.0 % Low 20 - 40 % [place] MCH (RBC) [Entitic mass] 28.5 pg 26 - 34 pg [place] MCHC (RBC) [Mass/Vol] 32.3 % 32 - 36 % [place] MCV (RBC) [Entitic vol] 88.3 fL 79 - 98 fL [place] Monocytes (Bld) [#/Vol] 0.4 10*3/uL 0 - 0.8 10*3/uL [place] Monocytes/100 WBC (Bld) 3.0 % 2 - 10 % [place] Platelet mean volume (Bld) [Entitic vol] 8.8 fL 7.4 - 10.4 fL [place] Platelets (Bld) [#/Vol] 345 10*3/uL 140 - 440 10*3/uL [place] RBC (Bld) [#/Vol] 4.41 10*6/uL 3.8 - 5.2 10*6/uL [place] WBC (Bld) [#/Vol] 11.7 10*3/uL High 3.6 - 10.7 10*3/uL [place] Test Performed by [id number] [place] [address] , Urineon 0 Beta HCG ( test) Ql (U) Negative Negative NA [place] Comment on above: is the mos t common reason for HCG in urine, although choriocarcinoma, hydatidiform mole, and certain nontropho- blastic malignancies also result in detectable urinary HCG levels. Sensitivity = 20mIU/mL. Test Performed by [id number] [place] [address] Basic Metabolic Panelon 11-0 Anion gap [Moles/Vol] 5 mmol/L [place] Calcium [Mass/Vol] 9.2 mg/dL 8.4 - 10. 4 mg/dL [place] Chloride [Moles/Vol] 100 mmol/L 98 - 10 7 mmol/L [place] CO2 [Moles/Vol] 29 mmol/L 22 - 30 mmol/L [place] Creatinine [Mass/Vol] 0.66 mg/dL 0.52 - 1.25 mg/dL [place] EGFR IF NonAfrican Burkinan >90.0 >60 mL/min [place] Comment on above: KDIGO guidelines pro vide the following GFR categories: Stage GFR(ml/min/1.73 m2) Terms G1 >=90 Normal or high G2 60-89 Mildly decreased* G3a 45-59 Mildly to moderately decreased G3b 30-44 Moderately to severely decreased G4 15-29 Severely decreased G5 <15 Kidney failure *Relative to young adult level. In the absence of evidence of kidney damage, neither GFR category G1 nor G2 fulfill the criteria for CKD. The CKD-EPI equation is validated in individuals 18 years of age and older. Currently the best equation for estimating glomerular filtration rate (GFR) from serum creatinine in children is the Bedside Bolton equation. It is less accurate in patients with extremes of muscle mass, restriction of dietary protein, ingestion of creatine, extra-renal metabolism of creatinine, or treatment with medications that affect renal tubular creatinine secretion. GFR/1.73 sq M predicted among blacks MDRD (S/P/Bld) [Vol rate/Area] mL/min/{1.73_m2} >60 mL/min [place] Glucose [Mass/Vol] 95 mg/dL 70 - 100 mg/dL [place] Interpretation and review of laboratory results Abnormal [place] Potassium [Moles/Vol] 4.0 mmol/L 3.5 - 5.1 mmol/L [place] Sodium [Moles/Vol] 134 mmol/L Low 135 - 145 mmol/L [place] Urea nitrogen [Mass/Vol] 16 mg/dL 7 - 20 mg/dL [place] Test Performed by [facility], [address] [place] [address] [place], [place] CBCon 08-06-2020 Erythrocyte distribution width (RBC) [Ratio] 15.0 % High 11.5 - 14.5 % [place] Hematocrit (Bld) [Volume fraction] 34.9 % Low 35 - 47 % [place] Hemoglobin (Bld) [Mass/Vol] 11.5 g/dL Low 11.7 - 16 g/dL [place] Interpretation and review of laboratory results Abnormal [place] MCH (RBC) [Entitic mass] 28.9 pg 26 - 34 pg [place] MCHC (RBC) [Mass/Vol] 33.0 % 32 - 36 % [place] MCV (RBC) [Entitic vol] 87.6 fL 79 - 98 fL [place] Platelet mean volume (Bld) [Entitic vol] 8.6 fL 7.4 - 10.4 fL [place] Platelets (Bld) [#/Vol] 293 10*3/uL 140 - 440 10*3/uL [place] RBC (Bld) [#/Vol] 3.99 10*6/uL 3.8 - 5.2 10*6/uL [place] WBC (Bld) [#/Vol] 6.9 10*3/uL 3.6 - 10.7 10*3/uL [place] Test Performed by [facility], [address] [place] [address] Protime-INRon 08-06-2020 INR Coag (PPP) [Relative time] 0.9 {INR} [place] Comment on above: Recommended Anticoag ulant Therapy: SEE BELOW ----- INR of 2.0 - 3.0 : - Prophylaxis of Venous Thrombosis (high-risk surgery) - Treatment of Venous Thrombosis - Treatment of Pulmonary Embolism (Includes tissue heart valves, Acute Myocardial Infarction to prevent systemic embolism, Valvular Heart Disease, and Atrial Fibrillation) ----- INR of 2.5 - 3.5 : - Mechanical Prosthetic Valves (high risk) - If oral anticoagulant therapy is used to prevent Myocardial Infarction PT Coag (PPP) [Time] 10.3 s 9 - 12 s [place], [place] Comment on above: . Test Performed by [facility], [address] [place] [address] TYPE AND SCREENon 08-06-2020 Sodium [Moles/Vol] O [place] Sodium [Moles/Vol] Positive [place] Sodium [Moles/Vol] Negative [place] Test Performed by [facility], [address] [place], [place] [address] [place] XR CHEST PORTABLEon 08-06-20 [facility], [facility] Incoming Radiology Results From [facility] - 08/06/2020 9:21 PM EST Patient Name: SIOBHAN HAAS ---Diagnostic Radiology--- Exam Date/Time 08/06/2020 20:58:27 EST Exam CR Chest Portable Ordering Physician GALLO HERNANDEZ Accession Number [id number] CPT4 Codes 67448 () Reason For Exam pre-op Report SINGLE FRONTAL VIEW OF THE CHEST CLINICAL INDICATION: pre-op TECHNIQUE: Single frontal view of the chest COMPARISON: None FINDINGS: Lungs show no significant consolidation. No pleural effusion or pneumothorax. No vascular congestion. Heart size normal. IMPRESSION: 1. No acute finding. Report Dictated on --- Final --- Dictated: 08/06/2020 9:19 pm Dictating Physician: MD AMBRIZ JOHN R Signed Date and Time: 08/06/2020 9:19 pm Signed by: MD AMBRIZ JOHN R Transcribed Date and Time: 08/06/2020 9:19 [place] Patient Name: SIOBHAN MCINTOSH ---Diagnostic Radiology--- Exam Date/Time 08/06/2020 20:58:27 EST Exam CR Chest Portable Ordering Physician [id number] LoboBAKARIGALLO Accession Number [id number] CPT4 Codes 04130 () Reason For Exam pre-op Report SINGLE FRONTAL VIEW OF THE CHEST CLINICAL INDICATION: pre-op TECHNIQUE: Single frontal view of the chest COMPARISON: None FINDINGS: Lungs show no significant consolidation. No pleural effusion or pneumothorax. No vascular congestion. Heart size normal. IMPRESSION: 1. No acute finding. Report Dictated on --- Final --- Dictated: 08/06/2020 9:19 pm Dictating Physician: MD AMBRIZ JOHN R Signed Date and Time: 08/06/2020 9:19 pm Signed by: MD AMBRIZ JOHN R Transcribed Date and Time: 08/06/2020 9:19 [place] XR TIBIA FIBULA RIGHT (2 VIE WS)on 08-06-2020 Patient Name: SIOBHAN MCINTOSH ---Diagnostic Radiology--- Exam Date/Time 08/06/2020 20:58:27 EST Exam CR Tibia/Fibula 2 Views Right Ordering Physician GALLO HERNANDEZ Accession Number [id number] CPT4 Codes 69689 () Reason For Exam pain Report RIGHT TIBIA AND FIBULA TWO VIEWS CLINICAL INDICATION: pain TECHNIQUE: Two views of the right tibia and fibula. COMPARISON: None FINDINGS: Amputation proximal tibial and fibular shafts. No acute bone destruction or periosteal reaction. IMPRESSION: 1. Status post amputation. Report Dictated on --- Final --- Dictated: 08/06/2020 9:20 pm Dictating Physician: MD AMBRIZ JOHN R Signed Date and Time: 08/06/2020 9:21 pm Signed by: MD AMBRIZ JOHN R Transcribed Date and Time: 08/06/2020 9:20 [place], [facility] Incoming Radiology Results From [facility] - 08/06/2020 9:22 PM EST Patient Name: SIOBHAN HAAS ---Diagnostic Radiology--- Exam Date/Time 08/06/2020 20:58:27 EST Exam CR Tibia/Fibula 2 Views Right Ordering Physician GALLO HERNANDEZ Accession Number [id number] CPT4 Codes 62959 () Reason For Exam pain Report RIGHT TIBIA AND FIBULA TWO VIEWS CLINICAL INDICATION: pain TECHNIQUE: Two views of the right tibia and fibula. COMPARISON: None FINDINGS: Amputation proximal tibial and fibular shafts. No acute bone destruction or periosteal reaction. IMPRESSION: 1. Status post amputation. Report Dictated on --- Final --- Dictated: 08/06/2020 9:20 pm Dictating Physician: MD AMBRIZ JOHN R Signed Date and Time: 08/06/2020 9:21 pm Signed by: MD AMBRIZ JOHN R Transcribed Date and Time: 08/06/2020 9:20 [place] Basic Metabolic Panelon 10-2 Anion gap [Moles/Vol] 6 mmol/L [place], [place] Calcium [Mass/Vol] 9.1 mg/dL 8.4 - 10. 4 mg/dL [place] Chloride [Moles/Vol] 108 mmol/L High 98 - 10 7 mmol/L [place] CO2 [Moles/Vol] 28 mmol/L 22 - 30 mmol/L [place] Creatinine [Mass/Vol] 0.69 mg/dL 0.52 - 1.25 mg/dL [place] EGFR IF NonAfrican [place]kinan >90.0 >60 mL/min [place] Comment on above: KDIGO guidelines pro vide the following GFR categories: Stage GFR(ml/min/1.73 m2) Terms G1 >=90 Normal or high G2 60-89 Mildly decreased* G3a 45-59 Mildly to moderately decreased G3b 30-44 Moderately to severely decreased G4 15-29 Severely decreased G5 <15 Kidney failure *Relative to young adult level. In the absence of evidence of kidney damage, neither GFR category G1 nor G2 fulfill the criteria for CKD. The CKD-EPI equation is validated in individuals 18 years of age and older. Currently the best equation for estimating glomerular filtration rate (GFR) from serum creatinine in children is the Bedside Bolton equation. It is less accurate in patients with extremes of muscle mass, restriction of dietary protein, ingestion of creatine, extra-renal metabolism of creatinine, or treatment with medications that affect renal tubular creatinine secretion. GFR/1.73 sq M predicted among blacks MDRD (S/P/Bld) [Vol rate/Area] mL/min/{1.73_m2} >60 mL/min [place] Glucose [Mass/Vol] 102 mg/dL High 70 - 100 mg/dL [place] Interpretation and review of laboratory results Abnormal [place] Potassium [Moles/Vol] 4.3 mmol/L 3.5 - 5.1 mmol/L [place] Sodium [Moles/Vol] 142 mmol/L 135 - 145 mmol/L [place] Urea nitrogen [Mass/Vol] 20 mg/dL 7 - 20 mg/dL [place] Test Performed by [facility], [facility] [place] [address] [place] Hemoglobin and Hematocrit, B loodon 07-27-2020 Hematocrit (Bld) [Volume fraction] 39.1 % 35 - 47 % [place] Hemoglobin (Bld) [Mass/Vol] 13.0 g/dL 11.7 - 16 g/dL [place] Test Performed by [facility], [facility] [place] [address] [place] Basic Metabolic Panelon 08-0 Anion gap [Moles/Vol] 7 mmol/L [place] Calcium [Mass/Vol] 8.6 mg/dL 8.4 - 10. 4 mg/dL [place] Chloride [Moles/Vol] 102 mmol/L 98 - 10 7 mmol/L [place] CO2 [Moles/Vol] 31 mmol/L High 22 - 30 mmol/L [place] Creatinine [Mass/Vol] 0.72 mg/dL 0.52 - 1.25 mg/dL [place] EGFR IF NonAfrican [place]kinan >60.0 >60 mL/min [place] Comment on above: Source- MDRD equatio n with creatinine calibration to IDMS(NKDEP) eGFR not recommended for drug dose adjustment GFR/1.73 sq M predicted among blacks MDRD (S/P/Bld) [Vol rate/Area] mL/min/{1.73_m2} >60 mL/min [place] Glucose [Mass/Vol] 96 mg/dL 70 - 100 mg/dL [place] Interpretation and review of laboratory results Abnormal [place] Potassium [Moles/Vol] 3.0 mmol/L Low 3.5 - 5.1 mmol/L [place] Sodium [Moles/Vol] 140 mmol/L 135 - 145 mmol/L [place] Urea nitrogen [Mass/Vol] 18 mg/dL 7 - 20 mg/dL [place] Test Performed by [facility], [address] [place] [address] [place] CBC Auto Differentialon 08-0 Absolute Baso # 0.1 10*3/uL 0 - 0.2 10*3/uL [place] Absolute Neut # 6.3 10*3/uL 1.8 - 7 10*3/uL [place] Basophils/100 WBC (Bld) 0.7 % 0 - 2 % [place] Eosinophils (Bld) [#/Vol] 0.0 10*3/uL 0 - 0.5 10*3/uL [place] Eosinophils/100 WBC (Bld) 0.4 % Low 1 - 6 % [place] Erythrocyte distribution width (RBC) [Ratio] 14.8 % High 11.5 - 14.5 % [place] Granulocytes/100 WBC (Bld) 65.7 % 40 - 80 % [place] Hematocrit (Bld) [Volume fraction] 26.2 % Low 35 - 47 % [place] Hemoglobin (Bld) [Mass/Vol] 8.8 g/dL Low 11.7 - 16 g/dL [place] Interpretation and review of laboratory results Abnormal [place] Lymphocytes (Bld) [#/Vol] 1.9 10*3/uL 1 - 4.3 10*3/uL [place] Lymphocytes/100 WBC (Bld) 20.0 % 20 - 40 % [place] MCH (RBC) [Entitic mass] 28.4 pg 26 - 34 pg [place] MCHC (RBC) [Mass/Vol] 33.6 % 32 - 36 % [place] MCV (RBC) [Entitic vol] 84.6 fL 79 - 98 fL [place] Monocytes (Bld) [#/Vol] 1.3 10*3/uL High 0 - 0.8 10*3/uL [place] Monocytes/100 WBC (Bld) 13.2 % High 2 - 10 % [place] Platelet mean volume (Bld) [Entitic vol] 7.8 fL 7.4 - 10.4 fL [place] Platelets (Bld) [#/Vol] 355 10*3/uL 140 - 440 10*3/uL [place] RBC (Bld) [#/Vol] 3.10 10*6/uL Low 3.8 - 5.2 10*6/uL [place] WBC (Bld) [#/Vol] 9.5 10*3/uL 3.6 - 10.7 10*3/uL [place] Test Performed by [facility], [address] [place] [address] [place] Basic Metabolic Panelon Anion gap [Moles/Vol] 11 mmol/L [place] Calcium [Mass/Vol] 8.9 mg/dL 8.4 - 10. 4 mg/dL [place] Chloride [Moles/Vol] 99 mmol/L 98 - 10 7 mmol/L [place] CO2 [Moles/Vol] 28 mmol/L 22 - 30 mmol/L [place] Creatinine [Mass/Vol] 0.9 mg/dL 0.52 - 1.25 mg/dL [place] EGFR IF NonAfrican [place]kinan >60.0 >60 mL/min [place] Comment on above: Source- MDRD equatio n with creatinine calibration to IDMS(NKDEP) eGFR not recommended for drug dose adjustment GFR/1.73 sq M predicted among blacks MDRD (S/P/Bld) [Vol rate/Area] mL/min/{1.73_m2} >60 mL/min [place] Glucose [Mass/Vol] 143 mg/dL High 70 - 100 mg/dL [place] Interpretation and review of laboratory results Abnormal [place] Potassium [Moles/Vol] 3.1 mmol/L Low 3.5 - 5.1 mmol/L [place] Sodium [Moles/Vol] 138 mmol/L 135 - 145 mmol/L [place] Urea nitrogen [Mass/Vol] 17 mg/dL 7 - 20 mg/dL [place] Test Performed by [facility], [address] [place] [address], [place] [address] [place] CBC Auto Differentialon 080 Absolute Baso # 0.0 10*3/uL 0 - 0.2 10*3/uL [place] Absolute Neut # 9.2 10*3/uL High 1.8 - 7 10*3/uL [place] Basophils/100 WBC (Bld) 0.4 % 0 - 2 % [place] Eosinophils (Bld) [#/Vol] 0.0 10*3/uL 0 - 0.5 10*3/uL [place] Eosinophils/100 WBC (Bld) 0.0 % Low 1 - 6 % [place] Erythrocyte distribution width (RBC) [Ratio] 14.9 % High 11.5 - 14.5 % [place] Granulocytes/100 WBC (Bld) 84.5 % High 40 - 80 % [place] Hematocrit (Bld) [Volume fraction] 26.4 % Low 35 - 47 % [place] Hemoglobin (Bld) [Mass/Vol] 8.9 g/dL Low 11.7 - 16 g/dL [place] Interpretation and review of laboratory results Abnormal [place] Lymphocytes (Bld) [#/Vol] 0.8 10*3/uL Low 1 - 4.3 10*3/uL [place] Lymphocytes/100 WBC (Bld) 6.9 % Low 20 - 40 % [place] MCH (RBC) [Entitic mass] 28.3 pg 26 - 34 pg [place] MCHC (RBC) [Mass/Vol] 33.8 % 32 - 36 % [place] MCV (RBC) [Entitic vol] 83.5 fL 79 - 98 fL [place] Monocytes (Bld) [#/Vol] 0.9 10*3/uL High 0 - 0.8 10*3/uL [place] Monocytes/100 WBC (Bld) 8.2 % 2 - 10 % [place] Platelet mean volume (Bld) [Entitic vol] 7.6 fL 7.4 - 10.4 fL [place] Platelets (Bld) [#/Vol] 346 10*3/uL 140 - 440 10*3/uL [place] RBC (Bld) [#/Vol] 3.17 10*6/uL Low 3.8 - 5.2 10*6/uL [place] WBC (Bld) [#/Vol] 10.9 10*3/uL High 3.6 - 10.7 10*3/uL [place] Test Performed by [facility], [address] [place] [address] [place] Surgical Pathologyon 019 Sodium [Moles/Vol] SEE BELOW [place], [place] [id number] [facility] PATHOLOGY AND LABORATORY MEDICINE [address] [place] [id number] FINAL SURGICAL PATHOLOGY REPORT NAME: SIOBHAN HAAS : 1960 58 [facility] [id number] LOCATION: [place] [address] PROCEDURE 05/06/2019 DATE: SURGEON: RUSTY MERCADO M.D. RECEIVED 05/07/2019 DATE: ATTENDING: NIRANJAN PACHECO M.D. REPORT DATE: 05/08/2019 COPIES TO: DIAGNOSIS: RIGHT BELOW THE KNEE AMPUTATION - LOWER LEG WITH ACUTE ULCERATION, ACUTE AND CHRONIC SOFT TISSUE INFLAMMATION AND MILD CALCIFIC ATHEROSCLEROSIS. 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 AHD/AHD Signature> ANETTE SINGER M.D. CLINICAL INFORMATION: Not provided SPECIMEN: LEG AMPUTATION, NON-TRAUMATIC GROSS DESCRIPTION: Right below the knee amputation Received in the fresh state is a below the knee amputation consistent with right measuring 17 cm from heel to skin line of resection and 33 cm from heel to distal most bone line of resection. Foot measures 24 cm from heel to tip of great toe. There is hardware protruding from the dorsal and medial side of the foot. The hardware consists of two graphite rods measuring 12 cm in length and 0.7 cm in diameter fixed by clamps to four silver, metal pins that are imbedded within the bone and soft tissue of the specimen. At the base of each insertion site there is a non-healed area of ulceration and non-healed surgical incision with ulceration and sutures. On the medial aspect of the lower leg approximately 3 cm above the medial malleolus there is a [id number] tattoo consisting of a group of four, small stars. No additional areas of ulceration are seen. There are what appear to be well-healed scars present on the lateral aspect of the foot and lower leg that measure approximately 13 cm. They extend over the lateral malleolus along the lateral aspect of the foot. Upon transection of the anterior and posterior tibial vessels the vessels show patent lumen with mildly thickened callahan that are otherwise grossly unremarkable. Upon removal of the external stabilizing rods the silver pins are firmly imbedded within the underlying tissue. Upon transection along the pins and surgical incision there is hemorrhage extending deep to the bone with a possible abscess formation. The bone underneath is hard. Medical Attendant sections of the specimen are submitted as follows: 1 soft tissue from line of resection; 2 bone marrow taken from the line of resection; 3 and 4 sections from the ulcers present at the insertion site of the silver pins; 5 is anterior tibial vessels; 6 is posterior tibial vessels; 7 is dorsalis pedis including overlying skin and subcutaneous tissue; 8 is sections of bone at the insertion site of the pins submitted for decalcification; 9 is entry level account representative sections of soft tissue surrounding the pins and bone. (bits ss, 9) D/D Disclaimer: The following statement applies to all immunohistochemistry, in situ hybridization, molecular studies, and immunofluorescence testing. The use of one or more reagents in the above tests is regulated as an analyte specific reagent (ASR). These tests were developed and their performance characteristics determined by the clinical laboratories of [facility]. They have not been cleared by the US Food and Drug Administration (FDA). The FDA has determined that such clearance or approval is not necessary. All the above immunostains were performed on paraffin embedded tissue. Appropriate positive and negative controls (where applicable) were run in parallel with the patient's specimen; these controls showed expected staining pattern, with acceptable intensity of staining. Immunohistochemical assays have not been validated on decalcified tissues. Results should be interpreted with caution given the raised possibility of false negativity on decalcified specimens. Professional Performing Location: [place] [address]. DEPARTMENT OF PATHOLOGY AND LABORATORY MEDICINE [place], [place] [address] [place] Basic Metabolic Panelon 08-0 Anion gap [Moles/Vol] 12 mmol/L [place] Calcium [Mass/Vol] 8.9 mg/dL 8.4 - 10. 4 mg/dL [place] Chloride [Moles/Vol] 105 mmol/L 98 - 10 7 mmol/L [place] CO2 [Moles/Vol] 24 mmol/L 22 - 30 mmol/L [place] Creatinine [Mass/Vol] 1.05 mg/dL 0.52 - 1.25 mg/dL [place] EGFR IF NonAfrican Burkinan 53.5 mL/min >60 [place] Comment on above: Source- MDRD equatio n with creatinine calibration to IDMS(NKDEP) eGFR not recommended for drug dose adjustment GFR/1.73 sq M predicted among blacks MDRD (S/P/Bld) [Vol rate/Area] mL/min/{1.73_m2} >60 mL/min [place] Glucose [Mass/Vol] 204 mg/dL High 70 - 100 mg/dL [place] Interpretation and review of laboratory results Abnormal [place] Potassium [Moles/Vol] 3.8 mmol/L 3.5 - 5.1 mmol/L [place] Sodium [Moles/Vol] 141 mmol/L 135 - 145 mmol/L [place] Urea nitrogen [Mass/Vol] 15 mg/dL 7 - 20 mg/dL [place] Test Performed by [facility], [address] [place] [address] [place] CBC Auto Differentialon 08-0 Absolute Baso # 0.0 10*3/uL 0 - 0.2 10*3/uL [place] Absolute Neut # 10.6 10*3/uL High 1.8 - 7 10*3/uL [place] Basophils/100 WBC (Bld) 0.2 % 0 - 2 % [place] Eosinophils (Bld) [#/Vol] 0.0 10*3/uL 0 - 0.5 10*3/uL [place] Eosinophils/100 WBC (Bld) 0.1 % Low 1 - 6 % [place] Erythrocyte distribution width (RBC) [Ratio] 14.7 % High 11.5 - 14.5 % [place] Granulocytes/100 WBC (Bld) 91.2 % High 40 - 80 % [place] Hematocrit (Bld) [Volume fraction] 30.7 % Low 35 - 47 % [place] Hemoglobin (Bld) [Mass/Vol] 10.0 g/dL Low 11.7 - 16 g/dL [place] Interpretation and review of laboratory results Abnormal [place] Lymphocytes (Bld) [#/Vol] 0.7 10*3/uL Low 1 - 4.3 10*3/uL [place] Lymphocytes/100 WBC (Bld) 5.6 % Low 20 - 40 % [place] MCH (RBC) [Entitic mass] 27.7 pg 26 - 34 pg [place] MCHC (RBC) [Mass/Vol] 32.7 % 32 - 36 % [place] MCV (RBC) [Entitic vol] 84.7 fL 79 - 98 fL [place] Monocytes (Bld) [#/Vol] 0.3 10*3/uL 0 - 0.8 10*3/uL [place] Monocytes/100 WBC (Bld) 2.9 % 2 - 10 % [place] Platelet mean volume (Bld) [Entitic vol] 7.8 fL 7.4 - 10.4 fL [place] Platelets (Bld) [#/Vol] 390 10*3/uL 140 - 440 10*3/uL [place] RBC (Bld) [#/Vol] 3.62 10*6/uL Low 3.8 - 5.2 10*6/uL [place] WBC (Bld) [#/Vol] 11.7 10*3/uL High 3.6 - 10.7 10*3/uL [place] Test Performed by [facility], [address] [place] [address] [place] Basic Metabolic Panelon 08-0 Anion gap [Moles/Vol] 11 mmol/L [place] Calcium [Mass/Vol] 9.3 mg/dL 8.4 - 10. 4 mg/dL [place] Chloride [Moles/Vol] 96 mmol/L Low 98 - 10 7 mmol/L [place] CO2 [Moles/Vol] 30 mmol/L 22 - 30 mmol/L [place] Creatinine [Mass/Vol] 0.95 mg/dL 0.52 - 1.25 mg/dL [place] EGFR IF NonAfrican [place]kinan >60.0 >60 mL/min [place] Comment on above: Source- MDRD equatio n with creatinine calibration to IDMS(NKDEP) eGFR not recommended for drug dose adjustment GFR/1.73 sq M predicted among blacks MDRD (S/P/Bld) [Vol rate/Area] mL/min/{1.73_m2} >60 mL/min [place] Glucose [Mass/Vol] 105 mg/dL High 70 - 100 mg/dL [place] Interpretation and review of laboratory results Abnormal [place] Potassium [Moles/Vol] 3.5 mmol/L 3.5 - 5.1 mmol/L [place] Sodium [Moles/Vol] 137 mmol/L 135 - 145 mmol/L [place] Urea nitrogen [Mass/Vol] 14 mg/dL 7 - 20 mg/dL [place] Test Performed by [facility], [address] [place] [address] [place] CBC Auto Differentialon 08-0 Absolute Baso # 0.0 10*3/uL 0 - 0.2 10*3/uL [place] Absolute Neut # 4.2 10*3/uL 1.8 - 7 10*3/uL [place] Basophils/100 WBC (Bld) 0.7 % 0 - 2 % [place] Eosinophils (Bld) [#/Vol] 0.2 10*3/uL 0 - 0.5 10*3/uL [place] Eosinophils/100 WBC (Bld) 3.3 % 1 - 6 % [place] Erythrocyte distribution width (RBC) [Ratio] 15.1 % High 11.5 - 14.5 % [place] Granulocytes/100 WBC (Bld) 61.2 % 40 - 80 % [place] Hematocrit (Bld) [Volume fraction] 30.8 % Low 35 - 47 % [place] Hemoglobin (Bld) [Mass/Vol] 10.4 g/dL Low 11.7 - 16 g/dL [place] Interpretation and review of laboratory results Abnormal [place] Lymphocytes (Bld) [#/Vol] 1.6 10*3/uL 1 - 4.3 10*3/uL [place] Lymphocytes/100 WBC (Bld) 22.4 % 20 - 40 % [place] MCH (RBC) [Entitic mass] 27.9 pg 26 - 34 pg [place] MCHC (RBC) [Mass/Vol] 33.7 % 32 - 36 % [place] MCV (RBC) [Entitic vol] 82.9 fL 79 - 98 fL [place] Monocytes (Bld) [#/Vol] 0.9 10*3/uL High 0 - 0.8 10*3/uL [place] Monocytes/100 WBC (Bld) 12.4 % High 2 - 10 % [place] Platelet mean volume (Bld) [Entitic vol] 7.7 fL 7.4 - 10.4 fL [place] Platelets (Bld) [#/Vol] 378 10*3/uL 140 - 440 10*3/uL [place] RBC (Bld) [#/Vol] 3.71 10*6/uL Low 3.8 - 5.2 10*6/uL [place] WBC (Bld) [#/Vol] 6.9 10*3/uL 3.6 - 10.7 10*3/uL [place] Test Performed by [facility], [address] [place] [address] [place] TYPE AND SCREENon 05-06-2019 Sodium [Moles/Vol] O [place] Sodium [Moles/Vol] Positive [place] Comment on above: Test Performed by [facility], [facility] [place] [address] Sodium [Moles/Vol] Negative [place] Comment on above: Test Performed by [facility], [place] [address] Test Performed by [facility], [facility] [place] [address] [place] Basic Metabolic Panelon 08-0 Anion gap [Moles/Vol] 8 mmol/L [place] Calcium [Mass/Vol] 8.9 mg/dL 8.4 - 10. 4 mg/dL [place] Chloride [Moles/Vol] 98 mmol/L 98 - 10 7 mmol/L [place] CO2 [Moles/Vol] 32 mmol/L High 22 - 30 mmol/L [place] Creatinine [Mass/Vol] 0.67 mg/dL 0.52 - 1.25 mg/dL [place] EGFR IF NonAfrican Burkinan >60.0 >60 mL/min [place] Comment on above: Source- MDRD equatio n with creatinine calibration to IDMS(NKDEP) eGFR not recommended for drug dose adjustment GFR/1.73 sq M predicted among blacks MDRD (S/P/Bld) [Vol rate/Area] mL/min/{1.73_m2} >60 mL/min [place] Glucose [Mass/Vol] 115 mg/dL High 70 - 100 mg/dL [place] Interpretation and review of laboratory results Abnormal [place] Potassium [Moles/Vol] 3.3 mmol/L Low 3.5 - 5.1 mmol/L [place] Sodium [Moles/Vol] 137 mmol/L 135 - 145 mmol/L [place] Urea nitrogen [Mass/Vol] 11 mg/dL 7 - 20 mg/dL [place] Test Performed by [facility], [address] [place] [address] [place] CBC Auto Differentialon 08-0 Absolute Baso # 0.1 10*3/uL 0 - 0.2 10*3/uL [place] Absolute Neut # 3.1 10*3/uL 1.8 - 7 10*3/uL [place] Basophils/100 WBC (Bld) 1.0 % 0 - 2 % [place] Eosinophils (Bld) [#/Vol] 0.2 10*3/uL 0 - 0.5 10*3/uL [place] Eosinophils/100 WBC (Bld) 4.3 % 1 - 6 % [place] Erythrocyte distribution width (RBC) [Ratio] 14.6 % High 11.5 - 14.5 % [place] Granulocytes/100 WBC (Bld) 53.9 % 40 - 80 % [place] Hematocrit (Bld) [Volume fraction] 30.7 % Low 35 - 47 % [place] Hemoglobin (Bld) [Mass/Vol] 10.2 g/dL Low 11.7 - 16 g/dL [place] Interpretation and review of laboratory results Abnormal [place] Lymphocytes (Bld) [#/Vol] 1.4 10*3/uL 1 - 4.3 10*3/uL [place] Lymphocytes/100 WBC (Bld) 25.1 % 20 - 40 % [place] MCH (RBC) [Entitic mass] 28.0 pg 26 - 34 pg [place] MCHC (RBC) [Mass/Vol] 33.3 % 32 - 36 % [place] MCV (RBC) [Entitic vol] 84.3 fL 79 - 98 fL [place] Monocytes (Bld) [#/Vol] 0.9 10*3/uL High 0 - 0.8 10*3/uL [place] Monocytes/100 WBC (Bld) 15.7 % High 2 - 10 % [place] Platelet mean volume (Bld) [Entitic vol] 7.6 fL 7.4 - 10.4 fL [place] Platelets (Bld) [#/Vol] 329 10*3/uL 140 - 440 10*3/uL [place] RBC (Bld) [#/Vol] 3.65 10*6/uL Low 3.8 - 5.2 10*6/uL [place] WBC (Bld) [#/Vol] 5.7 10*3/uL 3.6 - 10.7 10*3/uL [place] Test Performed by [facility], [address] [place] [id number] [place] [address] CKon 05-05-2019 Total CK 39 U/L 30 - 170 U/L [place] Test Performed by [facility], [address] [place] [address] [place] Vancomycin, Troughon 019 Vancomycin Tr 15.8 ug/mL 15 - 20 ug/mL [place] Comment on above: . Test Performed by [facility], [address] [place] [address] [place] Basic Metabolic Panel w/ Ref margo to MGon 05-04-2019 Anion gap [Moles/Vol] 9 mmol/L [place] Calcium [Mass/Vol] 9.0 mg/dL 8.4 - 10. 4 mg/dL [place] Chloride [Moles/Vol] 93 mmol/L Low 98 - 10 7 mmol/L [place] CO2 [Moles/Vol] 34 mmol/L High 22 - 30 mmol/L [place] Creatinine [Mass/Vol] 0.61 mg/dL 0.52 - 1.25 mg/dL [place] EGFR IF NonAfrican [place]kinan >60.0 >60 mL/min [place] Comment on above: Source- MDRD equatio n with creatinine calibration to IDMS(NKDEP) eGFR not recommended for drug dose adjustment GFR/1.73 sq M predicted among blacks MDRD (S/P/Bld) [Vol rate/Area] mL/min/{1.73_m2} >60 mL/min [place] Glucose [Mass/Vol] 105 mg/dL High 70 - 100 mg/dL [place] Interpretation and review of laboratory results Abnormal [place] Potassium [Moles/Vol] 2.7 mmol/L Low 3.5 - 5.1 mmol/L [place] Sodium [Moles/Vol] 135 mmol/L 135 - 145 mmol/L [place] Urea nitrogen [Mass/Vol] 9 mg/dL 7 - 20 mg/dL [place] Test Performed by [facility], [address] [place] [address] [place] CBCon 05-04-2019 Erythrocyte distribution width (RBC) [Ratio] 14.5 % 11.5 - 14.5 % [place] Hematocrit (Bld) [Volume fraction] 31.6 % Low 35 - 47 % [place] Hemoglobin (Bld) [Mass/Vol] 10.7 g/dL Low 11.7 - 16 g/dL [place] Interpretation and review of laboratory results Abnormal [place] MCH (RBC) [Entitic mass] 28.2 pg 26 - 34 pg [place] MCHC (RBC) [Mass/Vol] 33.9 % 32 - 36 % [place] MCV (RBC) [Entitic vol] 83.2 fL 79 - 98 fL [place] Platelet mean volume (Bld) [Entitic vol] 8.0 fL 7.4 - 10.4 fL [place] Platelets (Bld) [#/Vol] 308 10*3/uL 140 - 440 10*3/uL [place] RBC (Bld) [#/Vol] 3.80 10*6/uL 3.8 - 5.2 10*6/uL [place] WBC (Bld) [#/Vol] 6.5 10*3/uL 3.6 - 10.7 10*3/uL [place] Test Performed by [facility], [facility] [place] [address] [place] Magnesiumon 05-04-2019 Magnesium [Mass/Vol] 1.8 mg/dL 1.6 - 2 .3 mg/dL [place] Test Performed by [facility], [facility] [place] [address] [place] Procalcitoninon 05-04-2019 Procalcitonin <0.10 <0.10 ng/mL [place] Sodium [Moles/Vol] See Below [place] Comment on above: PCT <0.50 = Low risk of severe sepsis and/or septic shock. PCT >2.00 = High risk of severe sepsis and/or septic shock. Test Performed by [facility], [facility] [place] [address] [facility] C-Reactive Proteinon 019 CRP [Mass/Vol] 49.3 mg/L High 0 - 6 mg/L [place] Comment on above: . Interpretation and review of laboratory results Abnormal [place] Test Performed by [facility], [address] [place] [address] [place] Hemogram (CBC)on 05-03-2019 Erythrocyte distribution width (RBC) [Ratio] 14.9 % High 11.5 - 14.5 % [place] Hematocrit (Bld) [Volume fraction] 31.3 % Low 35 - 47 % [place] Hemoglobin (Bld) [Mass/Vol] 10.7 g/dL Low 11.7 - 16 g/dL [place] Interpretation and review of laboratory results Abnormal [place] MCH (RBC) [Entitic mass] 28.4 pg 26 - 34 pg [place] MCHC (RBC) [Mass/Vol] 34.2 % 32 - 36 % [place] MCV (RBC) [Entitic vol] 82.9 fL 79 - 98 fL [place] Platelet mean volume (Bld) [Entitic vol] 8.0 fL 7.4 - 10.4 fL [place] Platelets (Bld) [#/Vol] 337 10*3/uL 140 - 440 10*3/uL [place] RBC (Bld) [#/Vol] 3.77 10*6/uL Low 3.8 - 5.2 10*6/uL [facility] WBC (Bld) [#/Vol] 8.7 10*3/uL 3.6 - 10.7 10*3/uL [facility] Test Performed by [facility], [address] [place] [address] [place] Sedimentation Rateon 019 Interpretation and review of laboratory results Abnormal [place] Sed Rate 85 mm/h High 0 - 20 mm/h [place] Test Performed by [facility], [address] [place] [address] [place] XR FOOT RIGHT (MIN 3 VIEWS)o n 05-03-2019 Gildardo, Mikayla Incoming Radiology Results From [facility] - 05/03/2019 4:21 PM EDT Patient Name: SIOBHAN HAAS ---Diagnostic Radiology--- Exam Date/Time 05/03/2019 16:02:44 EDT Exam CR Foot Complete 3+ Views Right Ordering Physician PAULINE ROMERO Accession Number [id number] CPT4 Codes 48072 () Reason For Exam post op infection Report Three views of the right foot, 05/03/2019. Reason for examination: Right foot pain and swelling. Recent surgery. Concern for infection. COMPARISON: April 20, 2019. FINDINGS: There is new surgical hardware associated with the midfoot, compared to the prior study. A fixator device is present, as well as two surgical screws in the calcaneus which are unchanged. There appears to have been an interval bone graft placement in the region of the expected location of the talonavicular joint. No definite destructive osseous process is identified. There is soft tissue swelling. No soft tissue gas is noted. IMPRESSION: Interval postoperative changes in the midfoot. Chronic postoperative changes in the hindfoot. Soft tissue swelling. No definite evidence of osteomyelitis. Report Dictated on --- Final --- Dictated: 05/03/2019 4:17 pm Dictating Physician: MD WYATT JOE M Signed Date and Time: 05/03/2019 4:20 pm Signed by: MD WYATT JOE M Transcribed Date and Time: 05/03/2019 4:17 [place] Patient Name: SIOBHAN MCINTOSH ---Diagnostic Radiology--- Exam Date/Time 05/03/2019 16:02:44 EDT Exam CR Foot Complete 3+ Views Right Ordering Physician PAULINE ROMERO Accession Number [id number] CPT4 Codes 68668 () Reason For Exam post op infection Report Three views of the right foot, 05/03/2019. Reason for examination: Right foot pain and swelling. Recent surgery. Concern for infection. COMPARISON: April 20, 2019. FINDINGS: There is new surgical hardware associated with the midfoot, compared to the prior study. A fixator device is present, as well as two surgical screws in the calcaneus which are unchanged. There appears to have been an interval bone graft placement in the region of the expected location of the talonavicular joint. No definite destructive osseous process is identified. There is soft tissue swelling. No soft tissue gas is noted. IMPRESSION: Interval postoperative changes in the midfoot. Chronic postoperative changes in the hindfoot. Soft tissue swelling. No definite evidence of osteomyelitis. Report Dictated on --- Final --- Dictated: 05/03/2019 4:17 pm Dictating Physician: MD WYATT JOE M Signed Date and Time: 05/03/2019 4:20 pm Signed by: MD WYATT JOE M Transcribed Date and Time: 05/03/2019 4:17 [facility] WHITE BLOOD CELL SPECTon 12-25-2018 WBC #/vol (Bld) EXAMINATION: NUCLEAR MEDICINE WHITE BLOOD CELL IMAGING WITH SPECT/CT AND NUCLEAR MEDICINE BONE MARROW IMAGING 12/25/2018 TECHNIQUE: Following the injection of autologous leuokocytes labeled with 504 uCI of [id number], routine scintigraphy of the ankles and feet bilaterally was performed. CT SPECT imaging was performed with multiplanar fusion reformations. Limited CT was performed for attenuation and image localization purposes only. The patient was injected intravenously with 10.1 mCi of 99m-sulfur colloid. Scintigraphy of the same area was performed more than three hours later. COMPARISON: No prior for comparison. HISTORY: ORDERING SYSTEM PROVIDED HISTORY: osteo; TECHNOLOGIST PROVIDED HISTORY: Reason for Exam: Pseudarthrosis after fusion or arthrodesis Illness/Other Acuity: Unknown Type of Encounter: Unknown Additional signs and symptoms: . ORDERING SYSTEM PROVIDED DIAGNOSIS CODES: M96.0 Pseudarthrosis after fusion or arthrodesis Z98.1 Arthrodesis status; ORDERING SYSTEM PROVIDED HISTORY: Pseudarthrosis after fusion or arthrodesis; TECHNOLOGIST PROVIDED HISTORY: Reason for Exam: Pseudarthrosis after fusion or arthrodesis Illness/Other Acuity: Unknown Type of Encounter: Unknown Additional signs and symptoms: . ORDERING SYSTEM PROVIDED DIAGNOSIS CODES: M96.0 Pseudarthrosis after fusion or arthrodesis Z98.1 Arthrodesis status FINDINGS: Relatively diffuse activity is demonstrated at the right ankle and posterior and midfoot on tagged white blood cell imaging which is grossly similar in distribution to the asymmetric right-sided activity seen on corresponding bone marrow imaging. Minimal activity at the posterior left foot, best appreciated on lateral views, appears concordant to the bone marrow imaging. SPECT images demonstrate fusion hardware within the hindfoot and midfoot. Mild asymmetric soft tissue edema is seen at the right ankle and foot. IMPRESSION: No convincing evidence of osteomyelitis. Workstation ID: [id number] Dictated by: TAWNYA PAUL on SunDec 25, 2018 10:15:12 AM EDT Transcribed by: TAWNYA PAUL on SunDec 25, 2018 10:15:12 AM EDT Finalized by: TAWNYA PAUL on SunDec 25, 2018 10:15:12 AM EDT [facility] Comment on above: Order Comment: KEIRY Abernathy ORDER Reason for exam?:Pseudarthrosis after fusion or arthrodesis Injury/Trauma or Illness?:Illness/Other How long have you had these symptoms (acute/chronic)?:Unknown Type of Exam?:Unknown Additional signs and symptoms?:. NM WHITE CELL SCAN SPOT RACHEAL Barker 12-25-2018 NM WHITE CELL SCAN SPOT LIMITED EXAMINATION: NUCLEAR MEDICINE WHITE BLOOD CELL IMAGING WITH SPECT/CT AND NUCLEAR MEDICINE BONE MARROW IMAGING 12/25/2018 TECHNIQUE: Following the injection of autologous leuokocytes labeled with 504 uCI of [id number], routine scintigraphy of the ankles and feet bilaterally was performed. CT SPECT imaging was performed with multiplanar fusion reformations. Limited CT was performed for attenuation and image localization purposes only. The patient was injected intravenously with 10.1 mCi of 99m-sulfur colloid. Scintigraphy of the same area was performed more than three hours later. COMPARISON: No prior for comparison. HISTORY: ORDERING SYSTEM PROVIDED HISTORY: osteo; TECHNOLOGIST PROVIDED HISTORY: Reason for Exam: Pseudarthrosis after fusion or arthrodesis Illness/Other Acuity: Unknown Type of Encounter: Unknown Additional signs and symptoms: . ORDERING SYSTEM PROVIDED DIAGNOSIS CODES: M96.0 Pseudarthrosis after fusion or arthrodesis Z98.1 Arthrodesis status; ORDERING SYSTEM PROVIDED HISTORY: Pseudarthrosis after fusion or arthrodesis; TECHNOLOGIST PROVIDED HISTORY: Reason for Exam: Pseudarthrosis after fusion or arthrodesis Illness/Other Acuity: Unknown Type of Encounter: Unknown Additional signs and symptoms: . ORDERING SYSTEM PROVIDED DIAGNOSIS CODES: M96.0 Pseudarthrosis after fusion or arthrodesis Z98.1 Arthrodesis status FINDINGS: Relatively diffuse activity is demonstrated at the right ankle and posterior and midfoot on tagged white blood cell imaging which is grossly similar in distribution to the asymmetric right-sided activity seen on corresponding bone marrow imaging. Minimal activity at the posterior left foot, best appreciated on lateral views, appears concordant to the bone marrow imaging. SPECT images demonstrate fusion hardware within the hindfoot and midfoot. Mild asymmetric soft tissue edema is seen at the right ankle and foot. IMPRESSION: No convincing evidence of osteomyelitis. Workstation ID: [id number] Dictated by: TAWNYA PAUL on SunDec 25, 2018 10:15:12 AM EDT Transcribed by: TAWNYA PAUL on SunDec 25, 2018 10:15:12 AM EDT Finalized by: TAWNYA PAUL on SunDec 25, 2018 10:15:12 AM EDT [facility] Comment on above: Order Comment: KEIRY Abernathy ORDER Reason for exam?:Pseudarthrosis after fusion or arthrodesis Injury/Trauma or Illness?:Illness/Other How long have you had these symptoms (acute/chronic)?:Unknown Type of Exam?:Unknown Additional signs and symptoms?:. NM BONE MARROW LIMITEDon NM BONE MARROW LIMITED EXAMINATION: NUCLEAR MEDICINE WHITE BLOOD CELL IMAGING WITH SPECT/CT AND NUCLEAR MEDICINE BONE MARROW IMAGING 12/25/2018 TECHNIQUE: Following the injection of autologous leuokocytes labeled with 504 uCI of [id number], routine scintigraphy of the ankles and feet bilaterally was performed. CT SPECT imaging was performed with multiplanar fusion reformations. Limited CT was performed for attenuation and image localization purposes only. The patient was injected intravenously with 10.1 mCi of 99m-sulfur colloid. Scintigraphy of the same area was performed more than three hours later. COMPARISON: No prior for comparison. HISTORY: ORDERING SYSTEM PROVIDED HISTORY: osteo; TECHNOLOGIST PROVIDED HISTORY: Reason for Exam: Pseudarthrosis after fusion or arthrodesis Illness/Other Acuity: Unknown Type of Encounter: Unknown Additional signs and symptoms: . ORDERING SYSTEM PROVIDED DIAGNOSIS CODES: M96.0 Pseudarthrosis after fusion or arthrodesis Z98.1 Arthrodesis status; ORDERING SYSTEM PROVIDED HISTORY: Pseudarthrosis after fusion or arthrodesis; TECHNOLOGIST PROVIDED HISTORY: Reason for Exam: Pseudarthrosis after fusion or arthrodesis Illness/Other Acuity: Unknown Type of Encounter: Unknown Additional signs and symptoms: . ORDERING SYSTEM PROVIDED DIAGNOSIS CODES: M96.0 Pseudarthrosis after fusion or arthrodesis Z98.1 Arthrodesis status FINDINGS: Relatively diffuse activity is demonstrated at the right ankle and posterior and midfoot on tagged white blood cell imaging which is grossly similar in distribution to the asymmetric right-sided activity seen on corresponding bone marrow imaging. Minimal activity at the posterior left foot, best appreciated on lateral views, appears concordant to the bone marrow imaging. SPECT images demonstrate fusion hardware within the hindfoot and midfoot. Mild asymmetric soft tissue edema is seen at the right ankle and foot. IMPRESSION: No convincing evidence of osteomyelitis. Workstation ID: [id number] Dictated by: TAWNYA PAUL on SunDec 25, 2018 10:15:12 AM EDT Transcribed by: TAWNYA PAUL on SunDec 25, 2018 10:15:12 AM EDT Finalized by: TAWNYA PAUL on SunDec 25, 2018 10:15:12 AM EDT [facility] Comment on above: Order Comment: KERIY Abernathy ORDER Reason for exam?:Pseudarthrosis after fusion or arthrodesis Injury/Trauma or Illness?:Illness/Other How long have you had these symptoms (acute/chronic)?:Unknown Type of Exam?:Unknown Additional signs and symptoms?:. NM WHITE BLOOD CELL PREPon 0 12-24-2018 WBC #/vol (Bld) This is an auto loc lized result. Please refer to patient chart for further information. further information. further information. [facility] Comment on above: Order Comment: KEIRY Abernathy ORDER Reason for exam?:Pseudarthrosis after fusion or arthrodesis Injury/Trauma or Illness?:Illness/Other How long have you had these symptoms (acute/chronic)?:Unknown Type of Exam?:Unknown Additional signs and symptoms?:. BMPon 12-04-2018 Anion gap molar conc 17 mmol/L 10 - 20 mmol/L [facility] Calcium mass conc 9.0 mg/dL 8.4 - 10.2 mg/dL [facility] Chloride molar conc 98 mmol/L 98 - 108 mmol/L [facility] Creatinine mass conc 0.61 mg/dL 0.4 - 1 .1 mg/dL [facility] GFR/1.73 sq M predicted among non-blacks MDRD vol rate/area (S/P/Bld) The eGFR should be used for monitoring renal function only and not for medication dosing. [facility] GFR/1.73 sq M.predicted CKD-EPI vol rate/area (S/P/Bld) 100 >=60 mL/min/1.7 3 m2 [facility] Glucose mass conc 130 mg/dL High 65 - 99 mg/dL [facility] HCO3 molar conc 27 mmol/L 21 - 32 mmol/L [facility] Interpretation and review of laboratory results Abnormal [facility] Potassium molar conc 3.7 mmol/L 3.5 - 5 .1 mmol/L [facility] Sodium molar conc 138 mmol/L 135 - 145 mmol/L [facility] Urea nitrogen mass conc 13 mg/dL 8 - 25 mg/dL [facility] Urea nitrogen/Creatinine mass ratio 21.3 mg/mg High [facility] CBC WITH AUTO DIFFERENTIALon 12-04-2018 Basophils #/vol (Bld) 0.06 10*3/uL [facility] Basophils/100 WBC (Bld) 0.8 % [facility] Eosinophils #/vol (Bld) 0.28 10*3/uL [facility] Eosinophils/100 WBC (Bld) 3.6 % [facility] Erythrocyte distribution width Entitic volume (RBC) 14.6 % 11.6 - 14.8 % [facility] Hematocrit Volume Fraction (Bld) 40.6 % 36 - 46 % [facility] Hemoglobin mass conc (Bld) 12.9 g/dL 12 - 16 g/dL [facility] Immature granulocytes #/vol (Bld) 0.05 10*3/uL [facility] Immature granulocytes/100 WBC (Bld) 0.60 % [facility] Comment on above: The IG parameter is the percentage of metamyelocytes, myelocytes, and promyelocytes. Lymphocytes #/vol (Bld) 2.11 10*3/uL [facility] Lymphocytes/100 WBC (Bld) 27.4 % [facility] MCH Entitic mass (RBC) 27.8 pg 26 - 34 pg [facility] MCHC mass conc (RBC) 31.8 g/dL 31 - 37 g/dL [facility] MCV Entitic volume (RBC) 87.5 fL 80 - 100 fL [facility] Monocytes #/vol (Bld) 0.87 10*3/uL [facility] Monocytes/100 WBC (Bld) 11.3 % [facility] Neutrophils #/vol (Bld) 4.34 10*3/uL [facility] Neutrophils/100 WBC (Bld) 56.3 % [facility] Nucleated RBC #/vol (Bld) 0.00 10*3/uL [facility] Nucleated RBC/100 WBC Ratio (Bld) 0.0 % [facility] Platelet mean volume Entitic volume (Bld) 10.7 fL 9 - 15.5 fL [facility] Platelets #/vol (Bld) 277 10*3/uL [facility] RBC #/vol (Bld) 4.64 10*6/uL [facility] WBC #/vol (Bld) 7.71 10*3/uL [facility] Otheron 12-04-2018 Extra Tube Hold for add-ons. [facility] Comment on above: Auto resulted. PT/INRon 12-04-2018 INR Coag RelTime (PPP) 0.9 {INR} [facility] Interpretation and review of laboratory results Normal [facility] Prothrombin time (PT) Coag time (PPP) 11.8 s [facility] During the induction phase of oral anticoagulation, the INR may not reflect the anticoagulation status of the patient. Therapeutic ranges for INR's are: Most clinical situations: INR 2.0-3.0 Mechanical Prosthetic Valve: INR 2.5-3.5 Critical: INR >5.0 [facility] US DUPLEX VENOUS ARM RIGHTon 12-04-2018 US DUPLEX VENOUS ARM RIGHT Non-Invasive Vascular Patient: WALDO Cochran [facility] Rec#: [id number] (Age): 1960(58y) Study Date: 12/04/2018 Room#: Type: ER Sex: F Reading: Gertrudis Johnson MD, MARLON, NATIVIDAD Referring: Paramjit Morgan DO Field Identification Specialist: Latoya Escobar RVT, SUSAN Procedure Info: [id number] Study Quality: Diagnosis: M79.601 Pain in right arm Upper Venous Duplex Conclusions No evidence of deep or superficial vein thrombosis in the right upper extremity. Picc line visualized in the right basilic vein. Notify Results Results called to Shahla Raman CNP at 12/04/2018 07:44:42. Finding Grids Right Duplex Spont Phasic Internal Jugular Y Y Subclavian Y Y Axillary Y Y Brachial Y Y Radial _ _ Ulnar _ _ Basilic _ _ Cephalic _ _ Augment Fill Compressibility Internal Jugular _ Y Y Subclavian Y Y Y Axillary Y Y Y Brachial Y Y Y Radial Y Y Y Ulnar Y Y Y Basilic _ _ Y Cephalic _ _ Y Jose --------- Y = Yes Left Duplex Spont Phasic Augment Fill Compressibility Subclavian Y Y Y Y Y Jose --------- Y = Yes Electronically signed at 12/04/2018 08:03:51 by: Gertrudis Johnson MD, MARLON, FSKIANNA [facility] Duplex Venous Arm RIGHTon 12-04-2018 Non-Invasive Vascula r Patient: WALDO Cochran Med Rec#: [id number] (Age): 1960(58y) Study Date: 12/04/2018 Room#: Type: ER Sex: F Reading: Gertrudis Johnson MD, RPVI, FSIR Referring: Paramjit Morgan DO Field Identification Specialist: Latoya Escobar RVT, SUSAN Procedure Info: [id number] Study Quality: Diagnosis: M79.601 Pain in right arm Upper Venous Duplex Conclusions No evidence of deep or superficial vein thrombosis in the right upper extremity. Picc line visualized in the right basilic vein. Notify Results Results called to Shahlasharif Raman DATA MINING ANALYST at 12/04/2018 07:44:42. Finding Grids Right Duplex Spont Phasic Internal Jugular Y Y Subclavian Y Y Axillary Y Y Brachial Y Y Radial _ _ Ulnar _ _ Basilic _ _ Cephalic _ _ Augment Fill Compressibility Internal Jugular _ Y Y Subclavian Y Y Y Axillary Y Y Y Brachial Y Y Y Radial Y Y Y Ulnar Y Y Y Basilic _ _ Y Cephalic _ _ Y Jose --------- Y = Yes Left Duplex Spont Phasic Augment Fill Compressibility Subclavian Y Y Y Y Y Jose --------- Y = Yes Electronically signed at 12/04/2018 08:03:51 by: Gertrudis Johnson MD, MARLON, NATIVIDAD [facility] In artlab Xper Echopacs - 12/04/2018 8:07 AM EST Non-Invasive Vascular Patient: WALDO VERNON Nette [facility] Rec#: [id number] (Age): 1960(58y) Study Date: 12/04/2018 Room#: Type: ER Sex: F Reading: Gertrudis Johnson MD, MARLON, NATIVIDAD Referring: Paramjit Morgan DO Field Identification Specialist: Latoya Escobar RVT, RDMS Procedure Info: 33207 Study Quality: Diagnosis: M79.601 Pain in right arm Upper Venous Duplex Conclusions No evidence of deep or superficial vein thrombosis in the right upper extremity. Picc line visualized in the right basilic vein. Notify Results Results called to Shahla Raman CNP at 12/04/2018 07:44:42. Finding Grids Right Duplex Spont Phasic Internal Jugular Y Y Subclavian Y Y Axillary Y Y Brachial Y Y Radial _ _ Ulnar _ _ Basilic _ _ Cephalic _ _ Augment Fill Compressibility Internal Jugular _ Y Y Subclavian Y Y Y Axillary Y Y Y Brachial Y Y Y Radial Y Y Y Ulnar Y Y Y Basilic _ _ Y Cephalic _ _ Y Jose --------- Y = Yes Left Duplex Spont Phasic Augment Fill Compressibility Subclavian Y Y Y Y Y Jose --------- Y = Yes Electronically signed at 12/04/2018 08:03:51 by: Gertrudis Johnson MD, RPVI, FSIR [facility] XR CHEST PA/APon 12-04-2018 XR CHEST PA/AP EXAMINATION: XR CHEST PA/AP HISTORY: Confirm placement for existing PICC line Dx: T82.898A (Occluded PICC line, initial encounter ([facility])) COMPARISON: None. FINDINGS: Portable upright AP view is performed demonstrating right PICC line tip terminating in the SVC. There is no focal airspace opacity. No pleural effusion or pneumothorax. Cardiac silhouette is top-normal to mildly enlarged. Osseous structures are grossly intact. IMPRESSION: Right PICC line tip terminating in the SVC. Otherwise no active disease in the chest. SYJ/trn Workstation ID: [id number] Dictated by: ISACC HARTLEY on SunDec 04, 2018 9:01:34 AM EST Transcribed by: MARTINEZ CONTRERAS on SunDec 04, 2018 9:14:49 AM EST Finalized by: ISACC HARTLEY on SunDec 04, 2018 4:34:20 PM EST Normal [facility] Comment on above: Order Comment: Reaso n for exam?:Confirm placement for existing PICC line Injury/Trauma or Illness?:Illness/Other How long have you had these symptoms (acute/chronic)?:Acute History of cancer?:UNKNOWN Surgeries, chemotherapy, or radiation?:UNKNOWN Type of Exam?:Initial Additional signs and symptoms?:NO Basic Metabolic Panelon Anion gap molar conc 14 mmol/L 10 - 20 mmol/L [facility] Calcium mass conc 9.0 mg/dL 8.4 - 10.2 mg/dL [facility] Chloride molar conc 99 mmol/L 98 - 108 mmol/L [facility] Creatinine mass conc 0.64 mg/dL 0.4 - 1 .1 mg/dL [facility] GFR/1.73 sq M predicted among non-blacks MDRD vol rate/area (S/P/Bld) The eGFR should be used for monitoring renal function only and not for medication dosing. [facility] GFR/1.73 sq M.predicted CKD-EPI vol rate/area (S/P/Bld) 98 >=60 mL/min/1.7 3 m2 [facility] Glucose mass conc 125 mg/dL High 65 - 99 mg/dL [facility] HCO3 molar conc 28 mmol/L 21 - 32 mmol/L [facility] Interpretation and review of laboratory results Abnormal [facility] Potassium molar conc 4.1 mmol/L 3.5 - 5 .1 mmol/L [facility] Sodium molar conc 137 mmol/L 135 - 145 mmol/L [facility] Urea nitrogen mass conc 11 mg/dL 8 - 25 mg/dL [facility] Urea nitrogen/Creatinine mass ratio 17.2 mg/mg [facility] CBCon 11-05-2018 Erythrocyte distribution width Entitic volume (RBC) 14.2 % 11.6 - 14.8 % [facility] Hematocrit Volume Fraction (Bld) 36.5 % 36 - 46 % [facility] Hemoglobin mass conc (Bld) 11.6 g/dL Low 12 - 16 g/dL [facility] Interpretation and review of laboratory results Abnormal [facility] MCH Entitic mass (RBC) 28.2 pg 26 - 34 pg [facility] MCHC mass conc (RBC) 31.8 g/dL 31 - 37 g/dL [facility] MCV Entitic volume (RBC) 88.8 fL 80 - 100 fL [facility] Nucleated RBC #/vol (Bld) 0.00 10*3/uL [facility] Nucleated RBC/100 WBC Ratio (Bld) 0.0 % [facility] Platelet mean volume Entitic volume (Bld) 10.6 fL 9 - 15.5 fL [facility] Platelets #/vol (Bld) 292 10*3/uL [facility] RBC #/vol (Bld) 4.11 10*6/uL [facility] WBC #/vol (Bld) 9.12 10*3/uL [facility] Magnesium Levelon 11-05-2018 Interpretation and review of laboratory results Normal [facility] Magnesium mass conc 2.0 mg/dL 1.6 - 2. 4 mg/dL [facility] Chem 7on 11-03-2018 Anion gap molar conc 18 mmol/L 10 - 20 mmol/L [facility] Chloride molar conc 97 mmol/L Low 98 - 108 mmol/L [facility] Creatinine mass conc 0.54 mg/dL 0.4 - 1 .1 mg/dL [facility] GFR/1.73 sq M predicted among non-blacks MDRD vol rate/area (S/P/Bld) The eGFR should be used for monitoring renal function only and not for medication dosing. [facility] GFR/1.73 sq M.predicted CKD-EPI vol rate/area (S/P/Bld) 104 >=60 mL/min/1.7 3 m2 [facility] Glucose mass conc 99 mg/dL 65 - 99 mg/dL [facility] HCO3 molar conc 28 mmol/L 21 - 32 mmol/L [facility] Interpretation and review of laboratory results Abnormal [facility] Potassium molar conc 3.5 mmol/L 3.5 - 5 .1 mmol/L [facility] Sodium molar conc 139 mmol/L 135 - 145 mmol/L [facility] Urea nitrogen mass conc 10 mg/dL 8 - 25 mg/dL [facility] Urea nitrogen/Creatinine mass ratio 18.5 mg/mg [facility] Lavender Topon 11-03-2018 Extra Tube Hold for add-ons. [facility] Comment on above: Auto resulted. Basic Metabolic Panelon Anion gap molar conc 14 mmol/L 10 - 20 mmol/L [facility] Calcium mass conc 8.9 mg/dL 8.4 - 10.2 mg/dL [facility] Chloride molar conc 94 mmol/L Low 98 - 108 mmol/L [facility] Creatinine mass conc 0.56 mg/dL 0.4 - 1 .1 mg/dL [facility] GFR/1.73 sq M predicted among non-blacks MDRD vol rate/area (S/P/Bld) The eGFR should be used for monitoring renal function only and not for medication dosing. [facility] GFR/1.73 sq M.predicted CKD-EPI vol rate/area (S/P/Bld) 102 >=60 mL/min/1.7 3 m2 [facility] Glucose mass conc 105 mg/dL High 65 - 99 mg/dL [facility] HCO3 molar conc 31 mmol/L 21 - 32 mmol/L [facility] Interpretation and review of laboratory results Abnormal [facility] Potassium molar conc 3.3 mmol/L Low 3.5 - 5 .1 mmol/L [facility] Sodium molar conc 136 mmol/L 135 - 145 mmol/L [facility] Urea nitrogen mass conc 12 mg/dL 8 - 25 mg/dL [facility] Urea nitrogen/Creatinine mass ratio 21.4 mg/mg High [facility] Lavender Topon 11-02-2018 Extra Tube Hold for add-ons. [facility] Comment on above: Auto resulted. Magnesium Levelon 11-02-2018 Interpretation and review of laboratory results Normal [facility] Magnesium mass conc 2.2 mg/dL 1.6 - 2. 4 mg/dL [facility] Protein / Creatinine Ratio, Urineon 11-02-2018 Creatinine mass conc (U) 228.2 mg/dL [facility] Protein mass conc (U) 28.2 mg/dL [facility] Protein/Creatinine Ratio (U) 0.1 [facility] Basic Metabolic Panelon Anion gap molar conc 15 mmol/L 10 - 20 mmol/L [facility] Calcium mass conc 9.3 mg/dL 8.4 - 10.2 mg/dL [facility] Chloride molar conc 95 mmol/L Low 98 - 108 mmol/L [facility] Creatinine mass conc 0.64 mg/dL 0.4 - 1 .1 mg/dL [facility] GFR/1.73 sq M predicted among non-blacks MDRD vol rate/area (S/P/Bld) The eGFR should be used for monitoring renal function only and not for medication dosing. [facility] GFR/1.73 sq M.predicted CKD-EPI vol rate/area (S/P/Bld) 98 >=60 mL/min/1.7 3 m2 [facility] Glucose mass conc 102 mg/dL High 65 - 99 mg/dL [facility] HCO3 molar conc 31 mmol/L 21 - 32 mmol/L [facility] Interpretation and review of laboratory results Abnormal [facility] Potassium molar conc 2.9 mmol/L Low 3.5 - 5 .1 mmol/L [facility] Sodium molar conc 138 mmol/L 135 - 145 mmol/L [facility] Urea nitrogen mass conc 13 mg/dL 8 - 25 mg/dL [facility] Urea nitrogen/Creatinine mass ratio 20.3 mg/mg High [facility] CBCon 11-01-2018 Erythrocyte distribution width Entitic volume (RBC) 13.7 % 11.6 - 14.8 % [facility] Hematocrit Volume Fraction (Bld) 40.1 % 36 - 46 % [facility] Hemoglobin mass conc (Bld) 13.2 g/dL 12 - 16 g/dL [facility] MCH Entitic mass (RBC) 27.8 pg 26 - 34 pg [facility] MCHC mass conc (RBC) 32.9 g/dL 31 - 37 g/dL [facility] MCV Entitic volume (RBC) 84.6 fL 80 - 100 fL [facility] Nucleated RBC #/vol (Bld) 0.00 10*3/uL [facility] Nucleated RBC/100 WBC Ratio (Bld) 0.0 % [facility] Platelet mean volume Entitic volume (Bld) 10.8 fL 9 - 15.5 fL [facility] Platelets #/vol (Bld) 279 10*3/uL [facility] RBC #/vol (Bld) 4.74 10*6/uL [facility] WBC #/vol (Bld) 8.13 10*3/uL [facility] CRP, Inflammationon 11-01-19 19 CRP mass conc 49.3 mg/L High 0 - 10 mg/L [facility] Interpretation and review of laboratory results Abnormal [facility] Otheron 11-01-2018 Extra Tube Hold for add-ons. [facility] Comment on above: Auto resulted. Sedimentation Rateon 019 ESR Velocity (Bld) 43 mm/h High [facility] alth Interpretation and review of laboratory results Abnormal [facility] XR FLUOROSCOPY TIMEon 2018 XR FLUOROSCOPY TIME This is an auto loc lized result. Please refer to patient chart for further information. information. information. Normal [facility] Comment on above: Order Comment: Reaso n for exam?:OR Injury/Trauma or Illness?:Illness/Other How long have you had these symptoms (acute/chronic)?:Unknown Type of Exam?:Unknown Additional signs and symptoms?:unknown Fluoro time in minutes:.54 Fluoro dose in mGy?:.47 XR OR FOOT RIGHT 3+ VIEWSon 10-07-2018 XR OR FOOT RIGHT 3+ VIEWS EXAMINATION: XR OR FOOT RIGHT 3+ VIEWS HISTORY: ORDERING SYSTEM PROVIDED HISTORY: OR, TECHNOLOGIST PROVIDED HISTORY: Reason for exam: OR Illness/Other Encounter Type: Unknown Additional signs and symptoms: unknown Fluoro dose in mGy: .47 ORDERING SYSTEM PROVIDED DIAGNOSIS CODES: COMPARISON: None. TECHNIQUE: 4 films from the operating suite are submitted. FLUOROSCOPY TIME: 0.54 minutes. Fluoro Dose Ka,r mGy: Fluoro dose in Ka,r mGy: 0.47 FINDINGS: The patient has had fusion of the talar calcaneal joint with 2 large oblique threaded screws. The in neutral lateral film shows clamps at the talar navicular joint which looks markedly abnormal. A K-wire inserts through this region. The final film shows that the K-wires been replaced by a threaded screw. Plates and screws bridging the talar navicular joint are noted. A sponge is laterally located. Skin al are noted. It is unclear with of the sponge is external to the patient or within the soft tissues. IMPRESSION: Extensive internal fixation is noted. The final 2 films show radiopaque coiled marker of a sponge projected lateral to the hindfoot. This was called as a wet reading to the floor. Workstation ID: [id number] Dictated by: SHEN WEEMS on SunOct 07, 2018 9:20:24 AM EST Transcribed by: SHEN WEEMS on SunOct 07, 2018 9:20:24 AM EST Finalized by: SHEN WEEMS on SunOct 07, 2018 9:20:24 AM EST Normal [facility] Comment on above: Order Comment: Reaso n for exam?:OR Injury/Trauma or Illness?:Illness/Other How long have you had these symptoms (acute/chronic)?:Unknown Type of Exam?:Unknown Additional signs and symptoms?:unknown Fluoro time in minutes:.54 Fluoro dose in mGy?:.47 BMPon 02-21-2018 Anion gap 9 mmol/L Normal 5-16 [facility] Comment on above: Order Comment: Campu s: M Performed By: #### L 500.74432, L500.15903, L500.78847 ####[facility] [id number] [place], [place] [address]Cq# [phone] BUN/Creatinine Ratio 30 mg/mg High - [facility] Comment on above: Order Comment: Campu s: M Performed By: #### L 500.10064, L500.72296, L500.92548 ####[facility] [id number] [place], [place] [address]Fv# [phone] Calcium 8.8 mg/dL Normal 8.5-10.1 [facility] Comment on above: Order Comment: Campu s: M Performed By: #### L 500.45573, L500.19799, L500.15916 ####[facility] [id number] [place], [place] [address]Kk# [phone] Chloride 96 mmol/L Low 98-107 [facility] Comment on above: Order Comment: Campu s: M Performed By: #### L 500.36071, L500.18509, L500.24769 ####[facility] [id number] [place], [place] [address]Ef# [phone] CO2 30 mmol/L Normal 21-32 [facility] Comment on above: Order Comment: Campu s: M Performed By: #### L 500.22662, L500.18193, L500.37694 ####[facility] [id number] [place], [place] [address]Ek# [phone] Creatinine 1.240 mg/dL High 0.510-0.95 0 [facility] Comment on above: Order Comment: Campu s: M Result Comment: Leny ents receiving either N-Acetylcysteine (NAC) orMetamizole prior to venipuncture, may have falsely depressedresults. Performed By: #### L 500.28510, L500.48217, L500.44414 ####[facility] OQHLKRXZVV[address] [place], [place] [address]Ht# [phone] Glucose mass conc 98 mg/dL Normal 70-100 [facility] Comment on above: Order Comment: Campu s: M Result Comment: 70-1 00- Normal Fasting; 100-125 Impaired Fasting; greaterthan 126 on more than one result- Diabetes. ADA guidelines.Results may be falsely elevated after the administration ofSulfapyridine.Results may be falsely depressed after the administration ofSulfasalazine. Performed By: #### L 500.31183, L500.18598, L500.92951 ####[facility] S[address] [place], [place] [address]Nf# [phone] Potassium molar conc 3.5 mmol/L Normal 3.5-5.1 [facility] Comment on above: Order Comment: Campu s: M Performed By: #### L 500.73971, L500.38890, L500.30769 ####[facility] ZVCMPJGFVZ[address] [place], [place] [address]Gw# [phone] Sodium 135 mmol/L Low 136-145 [facility] Comment on above: Order Comment: Campu s: M Performed By: #### L 500.07267, L500.35596, L500.13678 ####[facility] O[address]JSNXWCW[address] [place], [place] [address]Zv# [phone] Urea nitrogen 37 mg/dL High 7-26 [facility] Comment on above: Order Comment: Campu s: M Performed By: #### L 500.43936, L500.51095, L500.23794 ####[facility] [id number] [place], [place] [address]Qe# [phone] CARD.CATHon 02-21-2018 CARD.CATH [Embedded Image Not Available][facility] Patient Name: SIOBHAN HAAS [id number] [facility] Date of : [address] [address] Unit Number: [id number] Number: [id number] Catheterization Patient Status: REG SDCAttending Doctor: Bry Rowland MDService Date: 02/21/18 0848Cardiac CatheterizationOrdering Provider:Kathi Gibson CNPAllergies:Coded Allergies:CLONAZEPAM (Mild, OUT OF HER HEAD 02/19/18)KETAMINE (Mild, HALLUCINATIONS 02/19/18)Summary:Procedures performed:31995: right-heart [id number]: conscious sedationIndication:R06.00: dyspneaAnesthesia: local (lidocaine 1%) and conscious/moderate (midazolam 2 mg, fentanyl 75 mcgIV)Access: right internal jugular vein (8F; under real-time ultrasound guidance)Findings/Impressio n:1. Normal right- and left-heart filling pressures: mean right atrial pressure = 5 mm Hg.Mean pulmonary capillary wedge pressure = 7 mm Hg.2. Normal pulmonary artery pressures: 26/11 (mean = 17) mm Hg.3. Normal cardiac index (4.5 L/min/m2) by the Cinthya method.4. No oximetry evidence of intracardiac shunt.CC:Venkat Philip MD; Kathi Gibson CNP; Oj MaddoxPDisclaimerThis dictation was created using voice recognition software.Phonetic and/or minor grammatical errors may exist.eSign Date and TimeBry Rowland MD Verified/Reviewed by 02/21/18 0851 Normal [facility]terization [facility] 02-21-2018 Erythrocyte distribution width Auto Ratio (RBC) 13.2 % Normal 11-14.5 [facility] Comment on above: Order Comment: Mitul sIveth M Performed By: #### L 200.97985 ####[facility] [id number] [place], [place] [address]Bw# [phone] Erythrocytes (RBC) 0.0 % Normal Less than 1 [facility] Comment on above: Order Comment: Mitul s: Arturo Performed By: #### L 200.60000 ####[facility] [id number] [place], [place] [address]Lr# [phone] Erythrocytes (RBC) 4.71 M/CU MM Normal 3.90-5.30 [facility] Comment [facility] above: Order Comment: Campu s: M Performed By: #### L 200.51861 ####[address] [address]Xw# [phone] Hematocrit (HCT) 40.8 % Normal 35.0-47.0 [facility] Comment on above: Order Comment: Campu s: M Performed By: #### L 200.41495 ####[address] [address]Rv# [phone] Hemoglobin mass conc (Bld) 13.6 g/dL Normal 11.5-15.5 [facility] Comment on above: Order Comment: Campu s: M Performed By: #### L 200.75559 ####[address] [address]Pw# [phone] MCHC mass conc (RBC) 33.3 g/dL Normal 32.0-36.0 [facility] Comment on above: Order Comment: Campu s: M Performed By: #### L 200.75435 ####[address] [address]Kz# [phone] MCV 86.6 fL Normal 80.0-99.0 [facility] Comment on above: Order Comment: Campu s: M Performed By: #### L 200.83471 ####[facility] [id number] [place] [address]Qn# [phone] Platelet mean volume (PMV) 10.4 fL Normal 9.4-12.4 [facility] Comment on above: Order Comment: Campu s: M Performed By: #### L 200.13838 ####[facility] [id number] [place] [address]Gu# [phone] Platelets 294 K/CU MM Normal 150-450 [facility] Comment on above: Order Comment: Campu s: M Performed By: #### L 200.84450 ####[facility] [id number] [place], [place] [address]Zy# [phone] WBC (Leukocytes) 8.2 K/CU MM Normal 4.5-11.0 [facility] Comment on above: Order Comment: Campu s: M Performed By: #### L 200.12955 ####[facility] [id number] [place], [place] [address]Nk# [phone] EKGon 02-21-2018 EKG Procedure Date and T philippe: 02/21/1815Test Reason : URGENTBlood Pressure : / mmHGVent. Rate : 080 BPM Atrial Rate : 080 BPMP-R Int : 160 ms QRS Dur : 088 msQT Int : 394 ms P-R-T Axes : 027 008 053 degreesQTc Int : 454 ms Suspect unspecified pacemaker failureNormal sinus rhythmNormal ECGNo previous ECGs availableConfirmed by Jhon Hernandez ([id number]) on 02/21/2018 9:07:22 PMReferred By: Bry Rowland Confirmed By:Jhon Hernandez M.DNayDDandT: 02/21/18 0715TDandT:[facility] PAT[facility]: [facility] [place] [facility] REC #: [id number], [place] [address] DATE:DISCHARGE DATE:ATTENDING PHY: Bry Rowland MDELECTROCARDIOGRAM REPORTCLBcc:[facility] PATIENT NAME: [facility] [place] MEDICAL REC #: [id number], [place] [address] DATE:DISCHARGE DATE:ATTENDING PHY: Bry Rowland MDELECTROCARDIOGRAM REPORT Normal [facility] ELECTROCARDIOGRAM REPORT Normal [facility] GFR ESTon 02-21-2018 IF AMER 54 ML/MIN Normal [facility] Comment on above: Order Comment: Mitul s: M Performed By: #### L 500.72049, L500.68022, L500.84983 ####[facility] [address] [place], [place] [address]Ib# [phone] IF non-AFR AMER 44 ML/MIN Normal [facility] Comment on above: Order Comment: Mitul s: M Performed By: #### L 500.23213, L500.49462, L500.49913 ####[facility] V[address]YFAUOZQ[address] [place], [place] [address]Dx# [phone] LIPIDon 02-21-2018 Cholesterol 194 mg/dL Normal 0-199 [facility] Comment on above: Order Comment: Mitul s: M Performed By: #### L 500.33551, L500.80120, L500.15218 ####[facility] SXFNFTIZPP[address] [place], [place] [address]Lg# [phone] HDL Cholesterol 70 mg/dL Normal [place]ATER [place] 40 [facility] Comment on above: Order Comment: Mitul bhardwaj: Arturo Result Comment: Leny ents receiving Metamizole prior to venipuncture, mayhave falsely depressed results. Performed By: #### L 500.10136, L500.91010, L500.05995 ####[facility] ALNRBJGRNY[address] [place], [place] [address]Qw# [phone] LDL Cholesterol 91 MG/DL Normal 0-129 [facility] Comment on above: Order Comment: Mitul Morris Result Comment: ___C HOLESTEROL/HDL RATIO RISK___ CHD RISK = Total CHOL LDL HDL (CHOL/HDL) -------Recommended <200 <130 >35 <3.4 -Borderline 200-239 130-159 3.4-4.99 -----High >240 >160 >5.0 - Performed By: #### L 500.89045, L500.97114, L500.83674 ####[facility] [id number] [place], [place] [address]Qs# [phone] Triglyceride 168 mg/dL High 30-149 [facility] Comment on above: Order Comment: Mitul bhardwaj: Arturo Result Comment: Leny ents receiving either N-Acetylcysteine (NAC) orMetamizole prior to venipuncture, may have falsely depressedresults. Performed By: #### L 500.78973, L500.07388, L500.13337 ####[facility] S[address]BOVRBTT[address]51 [place], [place] [address]Zf# [phone] Operative/Procedure Reporton 12-12-2017 Operative/Procedure Report DICTATED BY: RIGO SHELTON DOSERVICE DATE: 11/28/2017SURGEON:Rigo Shelton DOASSISTANT:1. Toney Miranda PA-C. Please note, skilled social service assistant was required for skin incision, skin retraction, ligament repair, tendon repair, joint preparation, joint effusion, hardware placement, wound closure, dressing application.2. Manny Olivera DO, resident.PREOPERATIVE DIAGNOSES:1. Right gastrocnemius equinus contracture.2. Right lateral ankle instability.3. Right peroneal tendinopathy.4. Right severe talonavicular joint arthritis.POSTOPERATIVE DIAGNOSES:1. Right gastrocnemius equinus contracture.2. Right lateral ankle instability.3. Right peroneal tendinopathy.4. Right severe talonavicular joint arthritis.PROCEDURES:1. Right gastrocnemius recession.2. Right ankle modified Brostrom.3. Right ankle extensor digitorum brevis muscle belly and fascia myodesis.4. Right ankle arthrotomy with excision of inflamed synovial tissue.5. Right ankle excisional and excessive debridement, anterior inferior talofibular.6. Right ankle talar exostectomy.7. Right ankle peroneus longus tenolysis.8. Right ankle peroneus brevis tenolysis.9. Right ankle peroneus longus debridement.10. Right ankle peroneus brevis debridement.11. Right ankle peroneus longus repair.12. Right ankle superficial retinaculum repair.13. Right talonavicular joint [id number]. Obtained bone graft through separate incision, right calcaneus.ANESTHESIA:Genera l with a block.COMPLICATIONS:None.CO NDITION:To PACU, stable.INDICATION FOR PROCEDURE:The patient is a 57-year-old female who presented to my office with a longstanding history of painful proximal midfoot and lateral ankle. The patient failed all conservative measures. She does have complicated history of possible RSD or complex regional pain syndrome. I told the patient, I was really hesitant to operative for fear of actually making things worse. I did have a length discussion with the patient regarding this and told her that if anything we could actually make things worse, if we are not careful, and she was willing to accept the risks. She said she would rather attempt this and then continue to live with the pain that she is currently experiencing. I did recommended procedures listed above. She consented to have procedures after all risks, benefits, and treatment alternatives were discussed in detail.OPERATIVE NOTE:The patient was identified in preoperative holding and the correct operative extremity was marked by the surgical staff. (The patient had a block performed to the operative extremity per anesthesia.) The patient was then transferred to the operative suite and transferred to a well padded operative table in the supine position. General with block anesthesia was administered by the Anesthesia Department. A tourniquet was applied to the operative leg. The patient was prepped and draped in the standard sterile fashion. A timeout was performed, identifying the correct patient and operative extremity as well as ensuring appropriate antibiotic administration. An Esmarch bandage was used to exsanguinate the extremity and the tourniquet was elevated to 300 mmHg.The leg was elevated to allow visualization of the posterior aspect of the leg. A 3-cm incision was made just medial to midline at the myotendinous junction of the gastrocnemius muscle. Sharp dissection was carried down through skin. We then bluntly dissected down to the fascia. The fascia was then opened sharply in line with the skin incision. Retractors were placed to retract medial and lateral for visualization purposes and to protect the sural nerve. Under direct visualization and with the ankle in maximal dorsiflexion, the gastrocnemius was transected perpendicular to its fibers from medial to lateral by pulling the tendon into the wound from both sides. Care was taken to prevent cutting into the underlying soleus muscle. A Silverskold test was used to assess the adequacy of lengthening and was felt to be appropriate at this time. Once adequate release was complete, the wound was then closed in a layered fashion. A 2-0 Vicryl was used to close subcutaneously and al were used to close the skin.I started by making a standard lateral incision over the fibula, curving along the peroneal tendons inferior to the fibula. I sharply dissected down through skin, bluntly dissected down through subcutaneous tissue. I dissected bluntly out anteriorly over the anterior muscle compartment and I protected the superficial peroneal nerve while doing so. I then dissected out posteriorly over the peroneal tendon, opening up the sheath inferior to the fibula and noted significant disease of peroneal tendons and retracted it posteriorly. I then moved back up over the anterior muscle compartment, opened up the fascia in line with the incision and retracted the muscle belly medially. I then while protecting the peroneal tendons inferiorly, performed my arthrotomy opening up the attenuated lateral joint capsule and ligament complex and the mid substance for later tendon repair. Upon opening the joint, there was a significant amount of inflamed synovial tissue that was present and that was identified and was resected sharply for visualization and pain-relief purposes. There was also extremely hypertrophied accessory band at the anterior inferior tibiofibular ligament and this was resected back sharply. At this point, there was a corresponding exostosis of the anterolateral talus consistent with impingement that was resected sharply with osteotome and mallet. No significant osteochondral lesions were identified. At this point, I moved back over the peroneal tendons. I opened up the superficial peroneal retinaculum that was attenuated, to evaluate the tendons itself. Both tendons have significant amount of tenosynovium present. A complete tenosynovectomy was performed on both peroneus longus and peroneus brevis tendons. The peroneus brevis tendons did have some mild degenerative disease to it with some fraying and so we did do a partial debridement of the tendon. Peroneus longus however did have split tear involving roughly 20% of the tendon. We went ahead and debrided that back and then tubularized the tendon with #3-0 Monocryl suture in running buried fashion. At this point, we palpated the groove, it appeared to be reasonable depth, did not feel that we needed to do any deepening of the groove. We then moved back up over the ankle joint, thoroughly irrigated out the joint and then began my Brostrom repair. We used #2 FiberWire in horizontal mattress fashion, grabbing joint capsule and ligament and the mid substance. Proximally, we incorporate the syndesmotic ligament and inferiorly we incorporated the extensor digitorum brevis muscle belly and fascia. We were able to place 4 sutures starting proximally and working inferiorly. We then passed all 4 sutures incorporating the digitorum brevis distally to increase blood supply and improve healing, reinforcing repair. We then reduced the ankle in maximal dorsiflexion, eversion and then tied the sutures down sequentially and then reinforced the repair with 0 Vicryl suture in figure-of-8 fashion. We then moved back over the peroneal tendon and used 0 Ethibond sutures in simple buried fashion to reapproximate the superficial retinaculum and then used 0 Vicryl suture in running fashion to reinforce this repair. I then thoroughly irrigated the wound one last time and closed in layered fashion with Vicryls to deep, and skin al to the skin. We then turned our attention to talonavicular joint.I made a standard medial incision just dorsal to the posterior tibial tendon centered over the talonavicular joint. We sharply dissected through skin, bluntly dissected down through subcutaneous tissue, identified the tibialis anterior tendon distally and then opened up the dorsal aspect of the talonavicular joint. There was large osteophytes present of the talus and the navicular that were resected sharply and then we had a small bone loss present dorsally. We then were able to open up the joint. There was some cartilage remained. We went in and debrided all remaining articular cartilage and perforated the subchondral bone with 0.062 K-wire. I then perform reduction and retrograded a K-wire from the mid navicular into the talus and then assessed the position on AP and lateral imaging. Once we had appropriate position, we then used an appropriate size drill bit and then placed a 6.5 mm partially threaded cannulated compression screws from [employer] with washer. This did compress the joint nicely, specifically, plantarly as we had the small defect dorsally after removal of the osteophyte, but we did get excellent compression as we were right in the mid line of the navicular. We then moved lateral to this. We used an egg shell barbara on the dorsal aspect of the navicular. I then placed a 4.5 mm cannulated compression screw parallel with the slightly divergent to the 6.5 mm screw more lateral compressing central aspect of the joint nicely. At this point, we obtained an AP and lateral x-rays, it did show nice positioning of the hardware, nice reduction of the talonavicular joint with defect dorsally. At this point, we thoroughly irrigated out the wound and then used an egg shell barbara to roughen up the cortical edges dorsally and the trough or the bone was missing. We then wanted to obtain some autograft as we decided to move over the posterior calcaneus to obtain autograft for the defect and try to help with a stress/strain relieving grafting of the talonavicular joint.We made a small stab incision on posterior lateral calcaneus. We sharply dissected down through skin, bluntly dissected down through subcutaneous tissue and down to bone. Used the Acumed bone harvester, cord out substantial cancellus bone graft and then moved back up to the mid foot, irrigated the wound one last time and then applied bone graft in that trough. We then used DBM bone allograft to place over the top of it to reinforce. We then choose a 2-hole mini locking plate from [employer] and positioned it, so we could get 1 screw into the talus, 1 screw in the navicular to just help reinforce the lag screw construct. We placed appropriately length locking screws proximally and distally. At this point, we obtained final AP and lateral x-ray. It did show appropriate position of the hardware. As we were trying to not invert or rotate the ankle, we were inverting the proximal leg to try to internally rotate the leg to try to get a good lateral x-rays of the mid foot with a mini C-arm and when we felt a little pop, we did evaluate the patient's ankle and leg, did not see any signs of fractures or abnormalities on fluoroscopic imaging. We went ahead and then finished closing the wounds in a layered fashion with Vicryl to deep skin and al to the skin. The patient had a sterile dressing applied followed by application of a standard well padded AO splint. She is awakened from anesthesia and transferred to PACU in stable condition without any complications.POSTOPERATIVE COURSE:The patient will be nonweightbearing. She will follow in my office in 2 weeks for dressing and al removed. X-rays, AP and lateral of the foot will be obtained. She will go back into boots. She will remain nonweightbearing until followed back in my office in 8 weeks postoperatively for repeat x-rays out of the boot. 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 My hope is that by doing this, the patient truly did not have RSD and that we are able to improve her symptoms. I did tell them that we will have to watch it closely and I am cautiously optimist that the talonavicular joint will heal well and we will have to watch it mcfp. I also talked to them about the fact that I heard the pop intraoperatively, so we will watch that closely. We will make sure that nothing change, but we did do intraoperative fluoroscopy films proximally and distally on the leg, as well as the ankle and saw no abnormalities. So, at this point, we will appropriately manage any changes that become apparent in the immediate postoperative period. They did appear to understand the treatment plan.SIOBHAN HAAS DBirthdate: 1960MRN: [id number] /11/28/2017 18:28:47 T11/29/2017 03:19:04VOICE JOB ID: [id number] Anderson thanks you for the opportunity to care for your patient.DID: [id number] Normal [facility] Basic Metabolic Panelon BUN/Creatinine Ratio 14 mg/mg Normal [facility] Calcium 8.9 mg/dL Normal 8.5-10.6 [facility] Chloride 99 mmol/L Normal 98-107 [facility] CO2 27 mmol/L Normal 21-32 [facility] Creatinine 0.84 mg/dL Normal 0.55-1.02 [facility] Glucose mass conc 169 mg/dL High 74-106 [facility] Potassium molar conc 4.0 mmol/L Normal 3.5-5.1 [facility] Sodium 136 mmol/L Normal 136-145 [facility] Urea nitrogen 12 mg/dL Normal 7-18 [facility] CBC with Differentialon Basophils Auto #/vol (Bld) 0.0 thou/mcL Normal 0.0-0.2 [facility] Basophils/100 WBC Auto (Bld) 0.1 % Normal 0-3 [facility] Diff Method AUTOMATED DIFFERENTIAL Normal [facility] Eosinophils 0.0 thou/mcL Normal 0.0-0.4 [facility] Eosinophils/100 leukocytes 0.0 % Normal 0-7 [facility] Erythrocyte distribution width Auto Ratio (RBC) 15.1 % High 11.7-15.0 [facility] Erythrocytes (RBC) 4.47 x(10)6/mcL Normal 3.80-5.60 [facility] Hematocrit (HCT) 38.7 % Normal 34.0-50.0 [facility] Hemoglobin mass conc (Bld) 13.2 g/dL Normal 11.5-17.0 [facility] Lymphocytes 0.5 thou/mcL Low 0.7-4.5 [facility] Lymphocytes/100 leukocytes 5.6 % Low 14-46 [facility] MCH 29.5 Picograms Normal 27.0-34.0 [facility] MCHC mass conc (RBC) 34.2 g/dL Normal 32.0-36.0 Moun t [facility] MCV 86.5 fL Normal 80-98 [facility] Monocytes 0.4 thou/mcL Normal 0.1-1.0 [facility] Monocytes/100 leukocytes 4.1 % Normal 4-13 [facility] Neutrophils 8.9 thou/mcL High 1.5-7.8 [facility] Neutrophils/100 WBC Auto (Bld) 90.2 % High 40-74 [facility] Platelet mean volume (PMV) 9.0 fL Normal 7.5-11.2 [facility] Platelets 217 thou/mcL Normal 140-415 [facility] WBC (Leukocytes) 9.8 thou/mcL Normal 4.0-10.5 [facility] Clinical Summaryon 8 Clinical Summary CLINICAL SUMMARYPlea se take this summary document to your follow up appointments. [facility] 11/29/17 [id number] [place], [place]. [address]Lkitb: PATIENT INFORMATION ---- Name: SIOBHAN HAAS Address: [address] [place] [id number] Age: 57 Years Phone: [phone] : 1960 12:00 MRN: [id number] Sex: Female Race: White Ethnicity: Not Hispan/Lat Admitted From: Clinic or [facility] Medical Service: Orthopedic Surgery Nurse Unit/Bed: (CO) 2NBN 241-01 Admit Date: 11/28/2017 12:09 PCP: Physician, PCP UnknownPHYSICIANS INVOLVED WITH CARE Attending Physicians: Rigo Shelton DO - Orthopaedic Surg Admitting Physician: None found Primary Care Physician:Physician, PCP Unknown,Family Practice,, - Consults: Dante BORDEN , Ed Milner - Internal Medicine Efren BORDEN , Danny Coombs - Internal Medicine Problems Active CRPS (complex regional pain syndrome type I) Urinary incontinence GERD (gastroesophageal reflux disease) RLS (restless legs syndrome) Mixed anxiety and depressive disorder Rheumatoid arthritis Hypertension Asthma FAY treated with BiPAP Allergies clonazePAM (Memory loss) ketamine (Hallucinations)Procedures Gastrocnemius recession (11/28/2017)MEASUREMENTS: Last Charted: Weight: Admission 142.5 kg /314 lbs 2 oz ( 11/28/17 14:10:00 )VITAL SIGNS: Last Charted:Pulse Rate: 81 BPM (11/29 11:00)Blood Pressure: 114/56 mm Hg (11/29 11:00) Pain Score: 6(11/29 08:20)MENTAL STATUS:Level of Conciousness: Alert (11/29 12:00)Orientation: Oriented x 4 (11/29 12:00)MEDICATIONS ORDERED / RECOMMENDED TO BE CONTINUED for: SIOBHAN HAAS DAmLODIPine (amLODipine 10 mg oral tablet) 1 Tab(s) By Mouth once a day. am.cyclobenzaprine 10 Milligram By Mouth Bedtime.Freetext Medication Prescriptions for home oxycodone vistaril cyclobenzaprine.Freetext Medication (Freetext Medication.) Hold home dose of mobic/meloxicam for 6 weeks.gabapentin (gabapentin 300 mg oral capsule) 1 Capsule By Mouth 5 Times/Day.hydroCHLOROthiazi de-losartan (Losartan/hydroCHLOROthiazi de 100 mg/12.5 mg) 1 Tab(s) By Mouth once a day. am.hydroxychloroquine (Plaquenil 200 mg oral tablet) 1 Tab(s) By Mouth Twice a day.montelukast (Singulair 10 mg oral tablet) 1 Tab(s) By Mouth once a day. am.omeprazole (omeprazole 20 mg oral enteric coated capsule) 1 Capsule By Mouth once a day. am.PARoxetine (Paxil 40 mg oral tablet) 1 Tab(s) By Mouth Bedtime.pramipexole (pramipexole 1.5 mg oral tablet) 1 Tab(s) By Mouth Twice a day. 5:30 and 9:30.MEDICATION CHANGE DETAILS NEW MEDICATIONSNoneUPDATED MEDICATIONSNoneUNCHANGED MEDICATIONSOther MedicationsAmLODIPine (amLODipine 10 mg oral tablet) 1 Tab(s) By Mouth once a day. am.Comment cyc lobenzaprine 10 Milligram By Mouth Bedtime.Comment __Freetext Medication Prescriptions for home oxycodone vistaril cyclobenzaprine.Comment____ Freetext Medication (Freetext Medication.) Hold home dose of mobic/meloxicam for 6 weeks.Comment gabapentin (gabapentin 300 mg oral capsule) 1 Capsule By Mouth 5 Times/Day.Comment ____hydroCHLOROthiazide-los arabella (Losartan/hydroCHLOROthiazi de 100 mg/12.5 mg) 1 Tab(s) By Mouth once a day. am.Comment hyd roxychloroquine (Plaquenil 200 mg oral tablet) 1 Tab(s) By Mouth Twice a day.Comment mo ntelukast (Singulair 10 mg oral tablet) 1 Tab(s) By Mouth once a day. am.Comment ome prazole (omeprazole 20 mg oral enteric coated capsule) 1 Capsule By Mouth once a day. am.Comment PAR oxetine (Paxil 40 mg oral tablet) 1 Tab(s) By Mouth Bedtime.Comment __pramipexole (pramipexole 1.5 mg oral tablet) 1 Tab(s) By Mouth Twice a day. 5:30 and 9:30.Comment S TOP TAKING THESE MEDICATIONSmeloxicam (Mobic 7.5 mg oral tablet) 1 Tab(s) By Mouth Twice a day.TraMADol (traMADol 50 mg oral tablet) 1 Tab(s) By Mouth 4 Times/Day.DO NOT TAKE UNTIL YOU TALK TO YOUR DOCTORNoneInpatient Medication History (active at the time of summary):Do not administer these medications until re-evaluated by a provider at the next level of care.hydroCHLOROthiazide 25 mg Tab (Hydrodiuril GEq) (Hydrodiuril) 12.5 mg = 0.5 Tab, PO, Tab, Daily, x 30 Day(s), 11/30/17 9:00:00 ESTAmLODIPine 10 mg Tab (Norvasc GEq) (AmLODIPine) 10 mg = 1 Tab, PO, Tab, Daily,, x 30 Day(s), 11/29/17 9:00:00 ESTPantoprazole 40 mg Tab EC (Protonix GEq) (pantoprazole) 40 mg = 1 Tab, PO, Tab EC, Daily,, x 30 Day(s), 11/29/17 9:00:00 EST Last Dose: 11/29/17 08:22:00 COMMENTS and SPECIAL INSTRUCTIONS: Do Not Chew, Crush Or Cut TabletMontelukast 10 mg Tab (Singulair GEq) (Singulair) 10 mg = 1 Tab, PO, Tab, Daily,, x 30 Day(s), 11/29/17 9:00:00 EST Last Dose: 11/29/17 08:22:00Losartan 50 mg Tab (Cozaar GEq) (Cozaar) 100 mg = 2 Tab, PO, Tab, Daily, x 30 Day(s), 11/29/17 9:00:00 ESTBethanechol 25 mg Tab (Urecholine GEq) (Bethanechol Oral) 25 mg = 1 Tab, PO, Tab, Q8h,, x, 11/29/17 8:00:00 EST Last Dose: 11/29/17 08:09:00Pramipexole 0.5 mg Tab (Mirapex GEq) (pramipexole) 1.5 mg = 3 Tab, PO, Tab, BID,, x 30 Day(s), 11/28/17 21:30:00 EST Last Dose: 11/28/17 21:44:00Hydroxychloroquine 200 mg Tab (Plaquenil GEq) (Plaquenil) 200 mg = 1 Tab, PO, Tab, BID,, x 30 Day(s), 11/28/17 21:00:00 EST Last Dose: 11/29/17 08:22:00PARoxetine 20 mg Tab (Paxil GEq) (Paxil) 40 mg = 2 Tab, PO, Tab, Bedtime,, x 30 Day(s), 11/28/17 8:13:00 EST Last Dose: 11/28/17 21:44:00Aspirin 325 mg EC Tab (Ecotrin GEq) (aspirin) 325 mg = 1 Tab, PO, Tab EC, BID, x 30 Day(s), 11/28/17 17:59:00 EST, VTE Advisor Last Dose: 11/29/17 10:13:00Docusate/Senna 50 mg/8.6 mg Tab (Senokot-S GEq). (Senna S) 1 Tab, PO, Tab, BID, x 30 Day(s),, 11/28/17 19:06:00 EST Last Dose: 11/29/17 08:22:00 COMMENTS and SPECIAL INSTRUCTIONS: For Bowel ManagementInsulin Aspart 100 Unit/mL 3 mL Pen (NovoLOG GEq) (NovoLOG Sliding Scale*) Conservative Scale, Inject, Subcut, ac+bedtime, x 30 Day(s), 11/28/17 19:09:00 ESToxygen Nasal Cannula, FIO2/LPM: 2 LPM, Supplemental oxygen titration to maintain saturation greater than 90%. Patient wears scheduled oxygen at night with her BiPAP at 2 LPM. Please do not wean below 2 LPM overnight.oxygen Nasal Cannula, FIO2/LPM: 2 LPM, Supplemental oxygen titration to maintain saturation greater than 90%Gabapentin 300 mg Cap (Neurontin GEq) (gabapentin) 300 mg = 1 Cap, PO, Cap, 5x per day,, x 30 Day(s), 11/28/17 8:12:00 EST Last Dose: 11/29/17 14:06:00OxyCODONE/Acetamino phen 5 mg/325 mg Tab (Percocet GEq) (OxyCODONE/Acetaminophen 5 mg/325 mg) 2 Tab, PO, Tab, Q4h, x 30 Day(s), PRN Pain - Severe, 11/28/17 22:25:00 EST Last Dose: 11/29/17 11:33:00 COMMENTS and SPECIAL INSTRUCTIONS: Maximum 4 Gm Acetaminophen/Day for Adults Dextrose 50% Syringe 25 Gm/50 mL (Dextrose 50% Syringe*) 12.5 Gm = 25 mL, IV Push, Inject, PRN, PRN, See Comments, x 30 Day(s), 11/28/17 19:09:00 ESTGlucagon 1 mg Vial (Glucagen GEq) (Glucagon) 1 mg, Subcut, Inject, PRN, PRN, See Comments, x 30 Day(s), 11/28/17 19:09:00 ESTHYDROmorphone 0.5 mg/0.5 mL INJ 0.5 mL (Dilaudid GEq) (Dilaudid Inj) 0.5 mg = 0.5 mL, IV Push, Inject, Q2h, PRN, Pain - Breakthrough, x 30 Day(s), 11/28/17 19:06:00 ESTNaloxone 0.4 mg/mL Vial 1 mL (Narcan GEq) (naloxone) 0.4 mg = 1 mL, IV, Inject, PRN, PRN, See Comments, x 30 Day(s), 11/28/17 19:06:00 ESTCyclobenzaprine 10 mg Tab (Flexeril GEq) (Flexeril) 10 mg = 1 Tab, PO, Tab, Q8h, PRN, Muscle Spasms, x 30 Day(s), 11/28/17 19:06:00 ESTAcetaminophen 325 mg Tab (Tylenol GEq) (Tylenol) 650 mg = 2 Tab, PO, Tab, Q4h, PRN, Pain-Mild/Fever greater than 100. 4 (38C), x 30 Day(s), 11/28/17 19:06:00 EST COMMENTS and SPECIAL INSTRUCTIONS: Maximum 4 Gm Acetaminophen/Day for Adults DiphenhydrAMINE 25 mg Tab (Benadryl GEq) (Benadryl) 25 mg = 1 Tab, PO, Tab, Q4h, PRN, Itching/Pruritus, x 30 Day(s), 11/28/17 19:06:00 ESTTraZODone 50 mg Tab (Desyrel GEq) (TraZODone) 50 mg = 1 Tab, PO, Tab, Bedtime, PRN, Insomnia/Sleep, x 30 Day(s), 11/28/17 19:06:00 ESTPromethazine 25 mg Tab (Phenergan GEq) (promethazine) 25 mg = 1 Tab, PO, Tab, Q4h, PRN, Nausea/Vomiting, x 30 Day(s), 11/28/17 19:06:00 ESTPromethazine 25 mg Suppos (Phenergan GEq) (promethazine) 25 mg = 1 Suppos, Rectal, Suppos, Q4h, PRN, Nausea/Vomiting, x 30 Day(s), 11/28/17 19:06:00 ESTMagnesium Hydroxide 8% Susp 30 mL (Milk of Magnesia) (Milk of Magnesia 8%) 30 mL, PO, Susp, Daily, x 30 Day(s), PRN Constipation, 2,400 mg, 11/28/17 19:06:00 ESTBisacodyl 10 mg Suppos (Dulcolax GEq) (Dulcolax) 10 mg = 1 Suppos, Rectal, Suppos, BID, PRN, Constipation, x 30 Day(s), 11/28/17 19:06:00 ESTMylanta/Maalox Plus Susp 30 mL (GEq) (Mylanta) 30 mL, PO, Susp, QID, x 30 Day(s), PRN Indigestion/Heartburn, 11/28/17 19:06:00 EST COMMENTS and SPECIAL INSTRUCTIONS: SHAKE WELLCloNIDine 0.1 mg Tab (Catapres GEq) (CloNIDine) 0.1 mg = 1 Tab, PO, Tab, Q6h, PRN, Blood Pressure - See Parameters in Order, x 30 Day(s), 11/28/17 8:15:00 ESTAlbuterol 2.5 mg/3 mL Inh Sandrine (Proventil/Ventolin GEq) (Albuterol Inh Sandrine) 2.5 mg = 3 mL, Nebul, Sandrine, Resp Q4h, PRN, Wheezing, x 30 Day(s), 11/28/17 8:14:00 ESTLactated Ringers 1,000 mL 1,000 mL, 20 mL/hr, IV, 1,000 mL, Infusion, 142.681 kg Last Dose: 11/28/17 14:22:00 COMMENTS and SPECIAL INSTRUCTIONS: Run at KVO RateINACTIVE MEDICATIONS GIVEN IN THE LAST 36 HOURS:Medications Discontinued or Completed in the last 36 hours:ketorolac 30 mg, IV Push, Inject, Once,, 11/28/17 18:45:00 EST Last Dose: 11/28/17 18:49:00FentaNYL 50 mcg/mL Inj 2 mL (Sublimaze GEq) 50 mcg = 1 mL, IV, Inject, Once Last Dose: 11/28/17 18:15:00 COMMENTS and SPECIAL INSTRUCTIONS: 50mcg/1mL Dose/Total Volume (Anesthesia)Ondansetron 2 mg/mL Inj 2 mL (Zofran GEq) 4 mg = 2 mL, IV, Inject, Once Last Dose: 11/28/17 17:58:00 COMMENTS and SPECIAL INSTRUCTIONS: 4mg/2mL Dose/Total Volume (Anesthesia)Labetalol 5 mg/mL Syringe 4 mL (Trandate GEq) 2.5 mg = 0.5 mL, IV, Inject, Once Last Dose: 11/28/17 17:44:00 COMMENTS and SPECIAL INSTRUCTIONS: 2.5mg/0.5mL Dose/Total Volume (Anesthesia)Labetalol 5 mg/mL Syringe 4 mL (Trandate GEq) 2.5 mg = 0.5 mL, IV, Inject, Once Last Dose: 11/28/17 17:32:00 COMMENTS and SPECIAL INSTRUCTIONS: 2.5mg/0.5mL Dose/Total Volume (Anesthesia)Dexamethasone Sodium Phosphate 4 mg/mL Vial 1 mL (Decadron GEq) 10 mg = 2.5 mL, IV, Inject, Once Last Dose: 11/28/17 16:59:00 COMMENTS and SPECIAL INSTRUCTIONS: 10mg/2.5mL Dose/Total Volume (Anesthesia)Ondansetron 2 mg/mL Inj 2 mL (Zofran GEq) 4 mg = 2 mL, IV, Inject, Once Last Dose: 11/28/17 16:59:00 COMMENTS and SPECIAL INSTRUCTIONS: 4mg/2mL Dose/Total Volume (Anesthesia)FentaNYL 50 mcg/mL Inj 2 mL (Sublimaze GEq) 50 mcg = 1 mL, IV, Inject, Once Last Dose: 11/28/17 16:54:00 COMMENTS and SPECIAL INSTRUCTIONS: 50mcg/1mL Dose/Total Volume (Anesthesia)Glycopyrrolate 0.2 mg/mL Inj 2 mL (Robinul GEq) 0.3 mg = 1.5 mL, IV, Inject, Once Last Dose: 11/28/17 16:15:00 COMMENTS and SPECIAL INSTRUCTIONS: 0.3mg/1.5mL Dose/Total Volume (Anesthesia)Rocuronium 10 mg/mL Inj 5 mL (Zemuron) 15 mg = 1.5 mL, IV, Inject, Once Last Dose: 11/28/17 16:10:00 COMMENTS and SPECIAL INSTRUCTIONS: 15mg/1.5mL Dose/Total Volume (Anesthesia)FentaNYL 50 mcg/mL Inj 2 mL (Sublimaze GEq) 50 mcg = 1 mL, IV, Inject, Once Last Dose: 11/28/17 15:55:00 COMMENTS and SPECIAL INSTRUCTIONS: 50mcg/1mL Dose/Total Volume (Anesthesia)Succinylcholine 20 mg/mL Vial 10 mL (Anectine GEq) 160 mg = 8 mL, IV, Inject, Once Last Dose: 11/28/17 15:53:00 COMMENTS and SPECIAL INSTRUCTIONS: 160mg/8mL Dose/Total Volume (Anesthesia)Propofol 10 mg/mL Vial 20 mL (Diprivan GEq) 200 mg = 20 mL, IV, Inject, Once Last Dose: 11/28/17 15:51:00 COMMENTS and SPECIAL INSTRUCTIONS: 200mg/20mL Dose/Total Volume (Anesthesia)Lidocaine 2% Vial 5 mL PF (Xylocaine GEq) 50 mg = 2.5 mL, IV, Inject, Once Last Dose: 11/28/17 15:51:00 COMMENTS and SPECIAL INSTRUCTIONS: 50mg/2.5mL Dose/Total Volume (Anesthesia)Rocuronium 10 mg/mL Inj 5 mL (Zemuron) 5 mg = 0.5 mL, IV, Inject, Once Last Dose: 11/28/17 15:50:00 COMMENTS and SPECIAL INSTRUCTIONS: 5mg/0.5mL Dose/Total Volume (Anesthesia)CeFAZolin (RTU) 3 Gm, IVPB, Pre-Procedure, x 30 Day(s) Last Dose: 11/28/17 16:00:00Gabapentin 300 mg Cap (Neurontin GEq)(unverified) 300 mg = 1 Cap, PO, Cap,, 11/28/17 8:12:00 EST Last Dose: 11/29/17 14:06:00Gabapentin 300 mg Cap (Neurontin GEq)(unverified) 300 mg = 1 Cap, PO, Cap,, 11/28/17 8:12:00 EST Last Dose: 11/29/17 10:12:00docusate-senna(unve rified) 1 Tab, PO, Tab,, 11/28/17 19:06:00 EST Last Dose: 11/29/17 08:22:00Aspirin 325 mg EC Tab (Ecotrin GEq)(unverified) 325 mg = 1 Tab, PO, Tab EC, 11/28/17 17:59:00 EST, VTE Advisor Last Dose: 11/29/17 10:13:00Hydroxychloroquine 200 mg Tab (Plaquenil GEq)(unverified) 200 mg = 1 Tab, PO, Tab,, 11/28/17 21:00:00 EST Last Dose: 11/29/17 08:22:00Pantoprazole 40 mg Tab EC (Protonix GEq)(unverified) 40 mg = 1 Tab, PO, Tab EC,, 11/29/17 9:00:00 EST Last Dose: 11/29/17 08:22:00Montelukast 10 mg Tab (Singulair GEq)(unverified) 10 mg = 1 Tab, PO, Tab,, 11/29/17 9:00:00 EST Last Dose: 11/29/17 08:22:00Bethanechol 25 mg Tab (Urecholine GEq)(unverified) 25 mg = 1 Tab, PO, Tab,, 11/29/17 8:00:00 EST Last Dose: 11/29/17 08:09:00Gabapentin 300 mg Cap (Neurontin GEq)(unverified) 300 mg = 1 Cap, PO, Cap,, 11/28/17 8:12:00 EST Last Dose: 11/29/17 06:15:00insulin aspart(unverified) Conservative Scale, Inject, Subcut, 11/28/17 19:09:00 ESTPramipexole 0.5 mg Tab (Mirapex GEq)(unverified) 1.5 mg = 3 Tab, PO, Tab,, 11/28/17 21:30:00 EST Last Dose: 11/28/17 21:44:00docusate-senna(unve rified) 1 Tab, PO, Tab,, 11/28/17 19:06:00 EST Last Dose: 11/28/17 21:44:00insulin aspart(unverified) Conservative Scale, Inject, Subcut, 11/28/17 19:09:00 ESTGabapentin 300 mg Cap (Neurontin GEq)(unverified) 300 mg = 1 Cap, PO, Cap,, 11/28/17 8:12:00 EST Last Dose: 11/28/17 21:44:00Aspirin 325 mg EC Tab (Ecotrin GEq)(unverified) 325 mg = 1 Tab, PO, Tab EC, 11/28/17 17:59:00 EST, VTE Advisor Last Dose: 11/28/17 21:44:00Hydroxychloroquine 200 mg Tab (Plaquenil GEq)(unverified) 200 mg = 1 Tab, PO, Tab,, 11/28/17 21:00:00 EST Last Dose: 11/28/17 21:44:00PARoxetine 20 mg Tab (Paxil GEq)(unverified) 40 mg = 2 Tab, PO, Tab,, 11/28/17 8:13:00 EST Last Dose: 11/28/17 21:44:00OxyCODONE 10 mg, PO, Tab, Once, PRN, Pain - Severe, 11/28/17 19:35:00 EST Last Dose: 11/28/17 19:45:00Bethanechol 25 mg Tab (Urecholine GEq) 25 mg = 1 Tab, PO, Tab, Q8h, PRN, See Comments, x 24 hr, 11/28/17 19:06:00 EST Last Dose: 11/28/17 23:47:00FentaNYL 50 mcg, IV Push, Inject, Q5min, PRN, Pain - Severe, x 3 Time(s)/Dose(s), 11/28/17 14:43:00 EST Last Dose: 11/28/17 19:10:00HYDROmorphone 0.5 mg, IV Push, Inject, Q10min, PRN, Pain - Severe, x 4 Time(s)/Dose(s), 11/28/17 14:43:00 EST Last Dose: 11/28/17 19:25:00meperidine 12.5 mg, IV Push, Inject, PRN, PRN, See Comments, x 2 Time(s)/Dose(s), 11/28/17 14:43:00 EST Last Dose: 11/28/17 18:55:00midazolam 5 mg, IV Push, Inject, Once, PRN, See Comments, 11/28/17 14:42:00 EST Last Dose: 11/28/17 15:27:00Lactated Ringers 1000 mL IV, 600 mL, Infusion, Once Last Dose: 11/28/17 18:19:00Lactated Ringers 1000 mL IV, 1,000 mL, Infusion, Once Last Dose: 11/28/17 17:33:00Lactated Ringers 1000 mL IV, 1,000 mL, Infusion, Once Last Dose: 11/28/17 16:31:00FOLLOW-UP APPOINTMENTS: Provider: Specialty: Address: Date: Rigo Shelton DO Orthopaedic Surg [address] [facility] [phone] (1) Two Weeks Provider: Specialty: Address: Date: PCP Unknown Physician Family Practice Follow-up as needed ADVANCE DIRECTIVE/HEALTH CARE DECISIONS:Advance Directive/Health Care Decisions Executed by Patient: : NoInformation Obtained From: PatientAdvance Directive Health Care Information Offered: Patient declinesSELECTED LAB RESULTS Lab Result Order DateHemoglobin 13.2 gm/dL 11/29/2017Hematocrit 38.7 % 11/29/2017WBC Count 9.8 thou/mcL 11/29/2017Platelet Count 217 thou/mcL 11/29/2017Sodium Level 136 mMol/L 11/29/2017Potassium Level 4.0 mMol/L 11/29/2017Creatinine 0.84 mg/dL 11/29/2017BUN 12 mg/dL 11/29/2017Glucose Blood POCT 125 mg/dL Physician Signature Date/Time PATIENT EDUCATIONVenous Thromboembolism Prevention; Pain Medicine Instructions; Infection Control in the Home; Incentive Spirometer; Hand Washing, Hlbr-na-Drze; Fall Prevention in the Home, Mppc-gu-Stfo; Constipation, Adult; CO - Mindful Eating - Building New Habits (CUSTOM); CO - Spreckels to Eating Healthy (CUSTOM) Normal [facility] OR Nursingon 11-29-2017 OR Nursing CO NA OR Nursing Rec ord Summary Primary Physician: Rigo Shelton DO Finalized Date/Time: 11/29/17 10:26:26 Pt. Name: SIOBHAN HAAS /Sex: 1960 Female Med Rec #: [id number] Physician: Financial #: [id number] Pt. Type: A Room/Bed: Admit/Disch: 11/28/17 12:09:00 - Institution: CO NA OR Case Times Entry 1 Patient Times Patient In Room 11/28/17 15:42:00 Patient Out Room 11/28/17 18:12:00 Surgical Times Start Time 11/28/17 16:12:00 Stop Time 11/28/17 18:06:00 Last Modified By: Rae VILLEDA , Iris Greenwood 11/28/17 18:10:27 CO NA OR Case Attendees Entry 1 Entry 2 Entry 3 Case Attendee Rigo Shelton DO, RN , Dorina Herron Role Performed Primary Surgeon ultimate hoops referee First Scrub Time In 11/28/17 15:42:00 11/28/17 15:42:00 11/28/17 15:42:00 Time Out 11/28/17 17:53:00 11/28/17 18:12:00 11/28/17 18:12:00 Procedure Arthrodesis Arthrodesis Arthrodesis Foot(Right), Recession Foot(Right), Recession Foot(Right), Recession Gastrocnemius(Right), Gastrocnemius(Right), Gastrocnemius(Right), Arthrotomy Ankle(Right) Arthrotomy Ankle(Right) Arthrotomy Ankle(Right) Attendee Comment Relief Reason Last Modified By: Steve RN , Ivette Wilson RN , Ivette Wilson RN , Ivette Milner 11/29/17 10:17:47 11/29/17 10:17:47 11/29/17 10:17:47 Entry 4 Entry 5 Entry 6 Case Attendee Jon Fraser CRNA John DO, Kristy Role Performed Assistive Personnel Nurse Molded Candles Wicker Anesthesiologist Time In 11/28/17 15:42:00 11/28/17 15:42:00 11/28/17 15:42:00 Time Out 11/28/17 18:12:00 11/28/17 16:56:00 11/28/17 18:12:00 Procedure Arthrodesis Arthrodesis Arthrodesis Foot(Right), Recession Foot(Right), Recession Foot(Right), Recession Gastrocnemius(Right), Gastrocnemius(Right), Gastrocnemius(Right), Arthrotomy Ankle(Right) Arthrotomy Ankle(Right) Arthrotomy Ankle(Right) Attendee Comment covering Relief Reason Last Modified By: Steve RN , Ivette Wilson RN , Ivette Wilson RN , Ivette Milner 11/29/17 10:17:47 11/29/17 10:17:47 11/29/17 10:17:47 Entry 7 Entry 8 Entry 9 Case Attendee Manny Olivera DO Student , Toney Hua Role Performed Resident Medical Student Physician Clothes Drier Assembler Time In 11/28/17 15:42:00 11/28/17 16:20:00 11/28/17 16:20:00 Time Out 11/28/17 18:12:00 11/28/17 18:12:00 11/28/17 18:12:00 Procedure Arthrodesis Arthrodesis Arthrodesis Foot(Right), Recession Foot(Right), Recession Foot(Right), Recession Gastrocnemius(Right), Gastrocnemius(Right), Gastrocnemius(Right), Arthrotomy Ankle(Right) Arthrotomy Ankle(Right) Arthrotomy Ankle(Right) Attendee Comment Relief Reason Last Modified By: Steve RN , Ivette Wilson RN , Ivette Wilson RN , Ivette Milner 11/29/17 10:17:47 11/29/17 10:17:47 11/29/17 10:17:47 Entry 10 Entry 11 Case Attendee Rowena Echeverria CRNA, Katherine L Role Performed Second Scrub Nurse Molded Candles Wicker Time In 11/28/17 15:42:00 02/28/18 16:56:00 Time Out 11/28/17 18:12:00 11/28/17 18:12:00 Procedure Arthrodesis Arthrodesis Foot(Right), Recession Foot(Right), Recession Gastrocnemius(Right), Gastrocnemius(Right), Arthrotomy Ankle(Right) Arthrotomy Ankle(Right) Attendee Comment Relief Reason Last Modified By: Steve VILLEDA , Ivette Rodríguez RN 11/29/17 10:17:47 11/29/17 10:17:47 CO NA OR General 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 Last Modified By: Ivette Wilson RN 11/29/17 10:18:37 General Comments: 11/29/2017 1018 Case level changed from Ortho Major to reflect procedures performed. Ivette Wilson BSN, RN, nurse inventory auditor CO NA OR Surgical Procedures Entry 1 Entry 2 Entry 3 Procedure Arthrodesis Foot Recession Gastrocnemius Arthrotomy Ankle Primary Procedure Yes No No Modifiers Right Right Right Procedure Wound Clean Clean Clean Class Primary Surgeon Rigo Shelton DO, DO , Rigo Yanez DO Surgical Service Orthopedic Surgery Orthopedic Surgery Orthopedic Surgery Anesthesia Type General General General Procedure Performed right ankle Right ankle talar right ankle gastrocnemius exostectomy, peroneus gastrocnemius recession recession, excisional and longus tenolysis, ankle quentin modified excessive debridement, peroneus brevis brostrum talonavicular anterior inferior tenolysis, peroneus joint arthrodesis talofibular, modified longus and peroneus obtain calcaneal brostrum talonavicular brevis debridement, autograft joint, arthrodesis peroneus longus repair, obtain calcaneal superficial retinaculum autograft, extensor repair, arthrotomy with digitorum brevis muscle excision of inflamed belly and fascia synovial tissue myodesis Start 11/28/17 16:12:00 11/28/17 16:12:00 11/28/17 16:12:00 Stop 11/28/17 18:06:00 11/28/17 18:06:00 11/28/17 18:06:00 Last Modified By: Steve VILLEDA , Ivette Wilson RN , Ivette Rodríguez RN 11/29/17 10:24:29 11/29/17 10:25:59 11/29/17 10:24:29 General Comments: 11/29/2017 1012 Updated Arthrodesis Foot and Recession Gastrocnemius Procedures Performed right ankle gastrocnemius recession ankle quentin modified brostrum talonavicular joint arthrodesis obtain calcaneal autograft based on the Operative Report. Added Recession Gastrocnemius and Arthrotomy Ankle Procedures based on the Operative Report. Ivette GREEN, RN, nurse inventory auditor CO NA OR Patient Positioning Entry 1 Body Position Supine Pressure Points Yes Assessed? Right Arm Position On armboard Left Arm Position On armboard Right Leg Position Straight Left Leg Position Straight Safety Strap Applied Yes Safety Strap Abdomen Location Positioned By Jon Fraser Fry RN OUTPATIENT SURGERY Positioning Comment BUMP POSITIONED UNDER , Rae Gipson RN OPERATIVE SIDE HIP , Iris Greenwood Procedure Arthrodesis Foot(Right) Last Modified By: Iris Mcbride RN 11/28/17 16:16:49 CO NA OR Tourniquet Entry 1 Site Thigh right Applied By Iris Mcbride RN Padding Webroll/Softroll Cuff Size 34 Inch Unit ID Number 5 Setting 300 mmHg Inflated 11/28/17 16:12:00 Deflated 11/28/17 17:58:00 Last Modified By: Iris Mcbride RN 11/28/17 17:58:27 CO NA OR Skin Prep Entry 1 Hair Removal Method None Skin Prep Prep Agents Chlorhexidine Gluconate Prep Site ENTIRE OPERATIVE LEG 2% w Alcohol ABOVE KNEE TO TOES Prep by Iris Mcbride RN Procedure Arthrodesis Foot(Right) Last Modified By: Iris Mcbride RN 11/28/17 16:17:22 CO NA OR Fire Risk Assessment Entry 1 Alcohol Based Prep Yes Solution Dry Time >3 Minutes or According to Manufactures Instructions. No Pooling Observed. (No Alcohol Prep used Select N/A) Fire Risk Factors Yes = 1, No or N/A = 0 Procedure No Open O2 Source No Site/Incision Above (Face Mask/Nasal Xyphoid Process Cannula) Ignition source Yes Fire Risk Total 1 (Cautery, Laser, Score Fiberoptic Light Source) Last Modified By: Rae VILLEDA , Iris Greenwood 11/28/17 16:17:29 Post-Care Text: Standard Fire Safety precautions - Score 1 or 2 Prep drying time - minimum three minutes Protected heat source (i.e bovie hazel) Standard draping procedure HIGH RISK FIRE PRACTICES - SCORE 3 *RN verbalizes to the team the presence of high-risk score and verifies the fire triangle *Write High Risk on the white board *Verbally confirm lowest effective setting on the heat source *Minimize 02 entrapment by proper draping of the patient *Encourage use of wet sponges *Available basin with sterile water and bulb syringe for suppression *Anesthesia Awareness and communication of oxygen flows/concentration *Allow for dispersion of 02 at least 1 minute before and during electrosurgical and laser use and communicate to surgeon *Use lowest tolerable concentration of 02 (less than 30% when able) CO NA OR Surgical Safety Checklist Entry 1 TIme Out Verified 11/28/17 16:10:00 Procedure Arthrodesis At: Foot(Right), Recession Gastrocnemius(Right), Arthrotomy Ankle(Right) Pre-Induction Patient confirms Before Introduction of Additional identity, site and Incision/Suspend surgical team and/or Verification procedure, Anesthesia all Activities new members, Entire safety check complete, (Before surgical team verbally pulse ox on, Confirm Incision/Start of confirm patient, site, patient allergies, Procedure) procedure, Surgeon Patient aspiration risk reviews: what are the was assessed and critical or unexpected equipment/assistance steps, operative available if necessary, duration, and Blood loss assessment; anticipated blood if risk of >500 mL loss?, Anesthesia blood loss (7mL/kg in reviews: are there any children) adequate IV patient-specific access, fluids and/or concerns?, Nursing team blood products planned, reviews: has sterility Implants, devices, been confirmed and are special equipment there any available and patient-specific functioning concerns?, Antibiotic infused/ing and redosing discussed if applicable, Relevant images and results properly labeled and correctly displayed if applicable Fire Risk Yes Assessment Completed Last Modified By: Ivette Wilson RN 11/29/17 10:17:49 CO NA OR Cautery Entry 1 Cautery and Settings Type Monopolar Unit ID Number 2 Coagulation Setting 40 Cut Setting 40 Grounding Pad Flank left Applied By Iris Mcbride RN Location Last Modified By: Iris Mcbride RN 11/28/17 16:18:12 CO NA OR Irrigation Entry 1 Irrigant 0.9% Saline Irrigant Volume 1000 mL Last Modified By: Iris Mcbride RN 11/28/17 16:18:21 CO NA OR Implants Entry 1 Entry 2 Entry 3 Description #CSP 745 CANNULATED #OSW 200 OSTEO SCREW #CSP 540 PARTIALLY SCREWS PARTIALLY WASHER THREADED 4.5MM X 4.0MM THREADED 6.5MM X 45MM 5.5MM/6.5MM/7.3MM [facility] Serial Number N/A N/A N/A Lot Number [id number] Catalog Number CSP 745 OSW 200 CSP 540 Cement Based Materials Pump Tender [facility] Expiration Date 04/29/24 07/30/20 09/29/20 No Expiration Date No No No Implant Site RIGHT FOOT RIGHT FOOT RIGHT FOOT Quantity 1 1 1 Tissue Material Used to Prepare/Process Tissue Processed By: Last Modified By: Rae VILLEDA , Iris Mcbride RN , Iris Mario RN 11/28/17 17:32:30 11/28/17 17:32:30 11/28/17 17:52:51 Entry 4 Entry 5 Entry 6 Description #OSW 100 3.5MM X4.0MM #FFP 071 1.7MM TWO HOLE #FRP 330 VARIABLE ANGLE [facility] LOCKING PLATE FLOWER LOCKING SCREWS 3.5MM X ORTHOPEDICS 30 Serial Number N.A N/A N/A Lot Number [id number] Catalog Number OSW 100 FFP 071 FRP 330 Cement Based [employer] Pump Tender [facility] Expiration Date 07/30/20 12/28/21 08/30/19 No Expiration Date No No No Implant Site RIGHT FOOT RIGHT FOOT RIGHT FOOT Quantity 1 1 1 Tissue Material Used to Prepare/Process Tissue Processed By: Last Modified By: Rae VILLEDA , Iris Mcbride RN , Iris Mario RN 11/28/17 17:52:51 11/28/17 17:52:51 11/28/17 17:58:16 Entry 7 Entry 8 Entry 9 Description #FRP 320 VARIABLE ANGLE #FRP 324 VARIABLE ANGLE BONE PASTE DBM PLUS FD LOCKING SCREW 3.5MM X 20 LOCKING SCREWS 3.5MM 1ML ALLOFUSE [id number] .24MM Serial Number N/A N/A N/A Lot Number [id number] Catalog Number FRP 320 FRP 324 [id number] Cement Based Materials Pump Tender [facility] [employer] Expiration Date 08/30/19 08/30/19 03/04/18 No Expiration Date No No No Implant Site RIGHT FOOT RIGHT FOOT RIGHT FOOT Quantity 1 1 1 Tissue Material Used to Prepare/Process Tissue Processed By: Last Modified By: Iris Mcbride RN, RN , Iris Mario RN 11/28/17 17:58:16 11/28/17 18:09:04 11/28/17 18:09:04 CO NA OR Counts Entry 1 Entry 2 Instrument Count N/A N/A Surgeon Notified of Count Sponge Count Initial Count Done 1st count correct X-ray Taken No No Sharps/Miscellaneous Initial Count Done 1st count correct Count RN Performing Count Rae VILLEDA , Iris Mario RN Count Performed with Dorina Farley Jennifer L Comment Procedure Arthrodesis Foot(Right) Arthrodesis Foot(Right) Last Modified By: Iris Mcbride RN, RN, Kacey L 11/28/17 16:18:40 11/28/17 16:18:40 CO NA OR Dressing/Packing Entry 1 Dressing Dressing/Packing PADDING CAST [id number] Dressing/Packing OPERATIVE FOOT Type STER SPECIALIST 100 Site 9084S Dressing/Packing XEROFORM, WEBRIL, Comment PLASTER SPLINT, COTTON, MINAL Last Modified By: Iris Mcbride RN 11/28/17 16:18:50 CO NA OR Temperature Regulation Entry 1 Unit ID 6 Site UPPER BODY Setting PER ANESTHESIA Warm blankets Last Modified By: Iris Mcbride RN 11/28/17 16:19:03 CO NA OR Final Count Entry 1 Sponges Correct Yes Sharps/Miscellaneous Yes Correct Instruments Correct n/a Count Performed with Dorina Farley RN Performing Count Iris Mcbride RN Surgeon Notified of Yes Count X-ray Taken No Comment PA NOTIFIED Procedure Arthrodesis Foot(Right), Recession Gastrocnemius(Right), Arthrotomy Ankle(Right) Last Modified By: Ivette Wilson RN 11/29/17 10:17:49 CO NA OR PNDS Risk of Impaired Skin Entry 1 Interventions/Activi Identifies physical OUTCOME STATEMENTS: The patient is free ties: alterations that may from visible signs and affect symptoms of injury procedure-specific related to positioning, positioning., Positions immobilization, the patient., pressure and/or Implements protective shearing forces. measures to prevent skin or tissue injury due to thermal, chemical, or mechanical sources., Uses supplies and equipment within safe parameters., Evaluates for signs and symptoms of injury as a result of positioning, immobilization, pressure and/or shearing forces. Last Modified By: Iris Mcbride RN 11/28/17 16:19:14 CO NA OR PNDS Risk of Altered Body Temp Entry 1 Interventions/Activi Monitors body OUTCOME STATEMENT: The patient is at or ties: temperature., returning to Implements normothermia at the thermoregulation conclusion of the measures., Evaluates operative period. response to thermoregulation. Last Modified By: Iris Mcbride RN 11/28/17 16:19:17 CO NA OR PNDS Risk of Infection Entry 1 INTERVENTIONS/ACTIVI Implements aseptic OUTCOME STATEMENT: The patient is free of TIES: technique., Classifies signs and symptoms of surgical wound., infection at the Assesses susceptibility conclusion of the for infection., operative period. Performs skin preparations., Protects from cross-contamination., Monitors for signs and symptoms of infection., Minimizes the length of invasive procedure planning care., Administers prescribed prophylactic treatments., Initiates traffic control., Administers care to invasive device sites., Administers care to wound sites. Last Modified By: Iris Mcbride RN 11/28/17 16:19:20 CO NA OR Patient Debriefing Entry 1 Patient Debriefing Verify name of Skin Assessment Warm, Dry, Intact procedure(s) performed After including site/side, Sponge and needle counts are correct, Review specimens and how each is labeled, Discuss equipment, instrument problems reported and case improvements, Review jose concerns for further patient management Last Modified By: Iris Mcbride RN 11/28/17 16:19:32 CO NA OR PNDS Risk of Injury Entry 1 Interventions/Activi Implements protective OUTCOME STATEMENT: The patient is free ties: measures to prevent from visible signs and injury due to symptoms of injury electrical sources., related to electrical, Implements protective mechanical, radiation measures to prevent or laser. injury due to radiation sources., Implements protective measures to prevent injury due to mechanical sources, Implements latex allergy precautions as needed, Records devices implanted during invasive procedure., Performs required counts., Evaluates for signs and symptoms of laser, electrical, mechanical and radiation injury. Last Modified By: Iris Mcbride RN 11/28/17 16:19:23 CO NA OR Transport from OR Entry 1 Patient Status Sedated Post-op Destination PACU Phase I Via Stretcher Last Modified By: Iris Mcbride RN 11/28/17 16:19:44 Case Comments Finalized By: Ivette Wilson RN Document Signatures Signed By: Iris Mcbride RN 11/28/17 18:25 Ivette Wilson RN 11/29/17 10:26 Normal [facility] Patient Summaryon 11-29-2017 Patient Summary PATIENT DISCHARGE INSTRUCTIONSIf you are having an emergency and are not able to reach your physician, CALL 911 or go to the nearest emergency room and take this document with you. [facility] 11/29/17 [id number] [place], [place]. [id number]: PATIENT INFORMATION ---- Name: WALDOSIOBHAN DOUGLAS Address: [address] [place] [id number] Age: 57 Years Phone: [phone] : 1960 12:00 MRN: [id number] Sex: Female Race: White Ethnicity: Not Hispan/Lat Admitted From: Clinic or [facility] Medical Service: Orthopedic Surgery Nurse Unit/Bed: (CO) 2NBN 241-01 Admit Date: 11/28/2017 12:09 PCP: Physician, PCP UnknownPHYSICIANS INVOLVED WITH CARE Attending Physicians: Rigo Shelton DO - Orthopaedic Surg Admitting Physician: None found Primary Care Physician:Physician, PCP Unknown,Family Practice,, - Consults: Dante BORDEN , Ed Milner - Internal Medicine Efren BORDEN , Danny Coombs - Internal Medicine FOLLOW-UP APPOINTMENTS: Provider: Specialty: Address: Date: Rigo Shelton DO Orthopaedic Surg [address] [facility] [phone] (1) Two Weeks Provider: Specialty: Address: Date: PCP Unknown Physician Family Practice Follow-up as needed ALLERGIES: clonazePAM : Reaction:Memory lossketamine : Reaction:HallucinationsMEAS UREMENTS: Last Charted: Weight: Admission 142.5 kg /314 lbs 2 oz ( 11/28/17 14:10:00 ) MEDICATIONS For: SIOBHAN HAAS DThis is your list of medication(s). Keep it with you at all times. Your doctor may have changed doses, add, held or stopped some of your medications. Please share this information with your family doctor. Carry this list of medications with you in case of an emergency. Update it when medications are stopped, doses are changed, or new medications (including ibut-sof-amfseci products) are added. Ask your doctor if you have any questions. THESE ARE THE MEDICATIONS YOU SHOULD BE TAKINGAmLODIPine (amLODipine 10 mg oral tablet) 1 Tab(s) By Mouth once a day. am.cyclobenzaprine 10 Milligram By Mouth Bedtime.Freetext Medication Prescriptions for home oxycodone vistaril cyclobenzaprine.Freetext Medication (Freetext Medication.) Hold home dose of mobic/meloxicam for 6 weeks.gabapentin (gabapentin 300 mg oral capsule) 1 Capsule By Mouth 5 Times/Day.hydroCHLOROthiazi de-losartan (Losartan/hydroCHLOROthiazi de 100 mg/12.5 mg) 1 Tab(s) By Mouth once a day. am.hydroxychloroquine (Plaquenil 200 mg oral tablet) 1 Tab(s) By Mouth Twice a day.montelukast (Singulair 10 mg oral tablet) 1 Tab(s) By Mouth once a day. am.omeprazole (omeprazole 20 mg oral enteric coated capsule) 1 Capsule By Mouth once a day. am.PARoxetine (Paxil 40 mg oral tablet) 1 Tab(s) By Mouth Bedtime.pramipexole (pramipexole 1.5 mg oral tablet) 1 Tab(s) By Mouth Twice a day. 5:30 and 9:30.MEDICATION CHANGE DETAILS (Not your Final Home Medication List)During the course of your visit, your home medication list was updated with the most current information. The details of those changes are shown below: NEW MEDICATIONSNoneUPDATED MEDICATIONSNoneUNCHANGED MEDICATIONSOther MedicationsAmLODIPine (amLODipine 10 mg oral tablet) 1 Tab(s) By Mouth once a day. am.Comment cyc lobenzaprine 10 Milligram By Mouth Bedtime.Comment __Freetext Medication Prescriptions for home oxycodone vistaril cyclobenzaprine.Comment____ Freetext Medication (Freetext Medication.) Hold home dose of mobic/meloxicam for 6 weeks.Comment gabapentin (gabapentin 300 mg oral capsule) 1 Capsule By Mouth 5 Times/Day.Comment ____hydroCHLOROthiazide-los arabella (Losartan/hydroCHLOROthiazi de 100 mg/12.5 mg) 1 Tab(s) By Mouth once a day. am.Comment hyd roxychloroquine (Plaquenil 200 mg oral tablet) 1 Tab(s) By Mouth Twice a day.Comment mo ntelukast (Singulair 10 mg oral tablet) 1 Tab(s) By Mouth once a day. am.Comment ome prazole (omeprazole 20 mg oral enteric coated capsule) 1 Capsule By Mouth once a day. am.Comment PAR oxetine (Paxil 40 mg oral tablet) 1 Tab(s) By Mouth Bedtime.Comment __pramipexole (pramipexole 1.5 mg oral tablet) 1 Tab(s) By Mouth Twice a day. 5:30 and 9:30.Comment S TOP TAKING THESE MEDICATIONSmeloxicam (Mobic 7.5 mg oral tablet) 1 Tab(s) By Mouth Twice a day.TraMADol (traMADol 50 mg oral tablet) 1 Tab(s) By Mouth 4 Times/Day.DO NOT TAKE UNTIL YOU TALK TO YOUR DOCTORNone NON-MEDICATION PRESCRIPTION SCHEDULING PHONE NUMBER: SELECTED LAB RESULTS Lab Result Order DateHemoglobin 13.2 gm/dL 11/29/2017Hematocrit 38.7 % 11/29/2017WBC Count 9.8 thou/mcL 11/29/2017Platelet Count 217 thou/mcL 11/29/2017Sodium Level 136 mMol/L 11/29/2017Potassium Level 4.0 mMol/L 11/29/2017Creatinine 0.84 mg/dL 11/29/2017BUN 12 mg/dL 11/29/2017Glucose Blood POCT 125 mg/dLADVANCE DIRECTIVE/HEALTH CARE DECISIONS:Advance Directive/Health Care Decisions Executed by Patient: : NoInformation Obtained From: PatientAdvance Directive Health Care Information Offered: Patient declinesSUICIDE HOTLINE: Your mental and emotional well-being are important. If you are in a mental health crisis, or having thoughts of suicide, please call the nationwide suicide hotline, anytime day or night, at 5-665-924-ORRM. Important information about accessing your health information through the [facility] patient portalIf you initiated the self-registration process for [facility] during your stay, please check your personal email for an invitation to enroll in [employer] and complete the steps outlined in the email. If you would prefer to enroll while in the hospital, ask a member of your care team. We would be happy to assist you. If you have already enrolled in [facility], go to [email or web address] to login and access your health information. Thank you for choosing [employer]. PATIENT EDUCATIONVenous Thromboembolism, PreventionA venous thromboembolism is a blood clot that forms in a vein. A blood clot in a deep vein is called a deep venous thrombosis (DVT). A blood clot in the lungs is called a pulmonary embolism (PE). Blood clots are dangerous and can cause . Blood clots can form in the: ???Lungs.???Legs.???Arms.CA USES???A blood clot can form in a vein from different conditions. A blood clot can develop due to:???Blood flow within a vein that is sluggish or very slow. ???Medical conditions that make the blood clot easily. ???Vein damage. RISK FACTORSRisk factors can increase your risk of developing a blood clot. Risk factors can include:???Smoking. ???Obesity.???Age.???Immobi lity or sedentary lifestyle. ???Sitting or standing for long periods of time. ???Chronic or long-term bedrest. ???Medical or past history of blood clots. ???Family history of blood clots. ???Hip, leg, or pelvis injury or trauma. ???Major surgery, especially surgery on the hip, knee, or abdomen. ??? and childbirth. ??? control pills and hormone replacement therapy. ???Medical conditions such as???Peripheral vascular disease (PVD).???Diabetes.???Cancer . SYMPTOMSSymptoms of VTE can depend on where the clot is located and if the clot breaks off and travels to another organ. Sometimes, there may be no symptoms. ???DVT symptoms can include:???Swelling of the leg or arm, especially on one side.???Warmth and redness of the leg or arm, especially on one side.???Pain in an arm or leg. Leg pain may be more noticeable or worse when standing or walking.???PE symptoms can include:???Shortness of breath. ???Coughing.???Coughing up blood or blood-tinged mucus (hemoptysis).???Chest pain or chest pain with deep breaths (pleuritic chest pain).???Apprehension, anxiety, or a feeling of impending doom. ???Rapid heartbeat.PREVENTION???Exer cise regularly. Take a brisk 30 minute walk every day. Staying active and moving around can help prevent blood clots.???Avoid sitting or lying in bed for long periods of time. Change your position often, especially during a long trip.???Women, especially those over the age of 35, should consider the risks and benefits of taking estrogen medicines. This includes control pills and hormone replacement therapy.???Do not smoke, especially if you take estrogen medicines. If you smoke, talk to your caregiver on how to quit.???Eat plenty of fruits and vegetables. Ask your caregiver or dietitian if there are foods you should avoid. ???Maintain a weight as suggested by your caregiver.???Wear loose-fitting clothing. Avoid constrictive or tight clothing around your legs or waist.???Try not to bump or injure your legs. Avoid crossing your legs when you are sitting. ???Do not use pillows under your knees unless told by your caregiver.???Take all medicines that your caregiver prescribes you. ???Wear special stockings (compression stockings or ADAM hose) if your caregiver prescribes them. ???Wearing compression stockings (support hose) can make the leg veins more narrow. This increases blood flow in the legs and can help prevent blood clots. ???It is important to wear compression stockings correctly. Do not let them bunch up when you are wearing them. TRAVELLong distance travel can increase the risk of a blood clot. To prevent a blood clot when traveling:???You should exercise your legs by walking or by pumping your muscles every hour. To help prevent poor circulation on long trips, stand, stretch, and walk up and down the aisle of your airplane, train, or bus as often as possible to get the blood moving.???Do squats if you are able. If you are unable to do squats, raise your foot on the balls of your feet and tighten your lower leg muscles (particularly the calve muscles) while seated. Pointing (flexing and extending) your toes while tightening your calves while seated are also good exercises to do every hour during long trips. They help increase blood flow and reduce risk of DVT. ???Stay well hydrated. Drink water regularly when traveling, especially when you are sitting or immobile for long periods of time. ???Use of drugs to prevent DVT during routine travel is not generally recommended. Before taking any drugs to reduce risk of DVT, consult your caregiver.SURGERY AND HOSPITALIZATION???People who are at high risk for a blood clot may be given a blood thinning medicine (anticoagulant) when they are hospitalized even if they are not going to have surgery.???A long trip prior to surgery can increase the risk of a clot for patients undergoing hip and knee replacements. Talk to your caregiver about travel plans before your surgery. ???After hip or knee surgery, your caregiver may give you anticoagulants to help prevent blood clots. ???Anticoagulants may be given to people at high risk of developing thromboembolism, before, during, or sometimes after surgery, including people with clotting disorders or with a history of past thromboembolism.TRAVEL AFTER SURGERY???In orthopedic surgery, the cutting of bones prompts the body to increase clotting factors in the blood. Due to the size of the bones involved in hip and knee replacements, there is a higher risk of blood clotting than other orthopedic surgeries.???There is a risk of clotting for up to 4?6 weeks after surgery. Flying or traveling long distances can increase your risk of a clot. As a result, those who travel long distances may need additional preventive measures after their procedure. ???Drink only non-alcoholic beverages during your flight, train, or car travel. Alcohol can dehydrate you and increase your risk of getting blood clots.SEEK IMMEDIATE MEDICAL CARE IF:???You develop chest pain.???You develop severe shortness of breath.???You have breathing problems after traveling.???You develop swelling or pain in the leg.???You begin to cough up bloody mucus or phlegm (sputum).???You feel dizzy or faint.This information is not intended to replace advice given to you by your health care provider. Make sure you discuss any questions you have with your health care provider.Document Released: 09/05/2010 Document Revised: 06/11/2013 Document Reviewed: 01/12/2016[employer] Interactive Patient Education ?2016 [email or web address]Pain Medicine InstructionsHOW CAN PAIN MEDICINE AFFECT ME?You were given a prescription for pain medicine. This medicine may make you tired or drowsy and may affect your ability to think clearly. Pain medicine may also affect your ability to drive or perform certain physical activities. It may not be possible to make all of your pain go away, but you should be comfortable enough to move, breathe, and take care of yourself. HOW OFTEN SHOULD I TAKE PAIN MEDICINE AND HOW MUCH SHOULD I TAKE?Take pain medicine only as directed by your health care provider and only as needed for pain.???You do not need to take pain medicine if you are not having pain, unless directed by your health care provider.???You can take less than the prescribed dose if you find that a smaller amount of medicine controls your pain.WHAT RESTRICTIONS DO I HAVE WHILE TAKING PAIN MEDICINE?Follow these instructions after you start taking pain medicine, while you are taking the medicine, and for 8 hours after you stop taking the medicine:???Do not drive.???Do not operate machinery.???Do not operate power tools.???Do not sign legal documents.???Do not drink alcohol.???Do not take sleeping pills.???Do not supervise children by yourself. ???Do not participate in activities that require climbing or being in high places.???Do not enter a body of water?such as a musa, river, ocean, spa, or swimming pool?without an adult nearby who can monitor and help you.HOW CAN I KEEP OTHERS SAFE WHILE I AM TAKING PAIN MEDICINE?Store your pain medicine as directed by your health care provider. Make sure that it is placed where children and pets cannot reach it.???Never share your pain medicine with anyone.???Do not save any leftover pills. If you have any leftover pain medicine, get rid of it or destroy it as directed by your health care provider.WHAT ELSE DO I NEED TO KNOW ABOUT TAKING PAIN MEDICINE?Use a stool softener if you become constipated from your pain medicine. Increasing your intake of fruits and vegetables will also help with constipation.???Write down the times when you take your pain medicine. Look at the times before you take your next dose of medicine. It is easy to become confused while on pain medicine. Recording the times helps you to avoid an overdose.???If your pain is severe, do not try to treat it yourself by taking more pills than instructed on your prescription. Contact your health care provider for help.???You may have been prescribed a pain medicine that contains acetaminophen. Do not take any other acetaminophen while taking this medicine. An overdose of acetaminophen can result in severe liver damage. Acetaminophen is found in many dnpk-aaz-psgujxy (OTC) and prescription medicines. If you are taking any medicines in addition to your pain medicine, check the active ingredients on those medicines to see if acetaminophen is listed.WHEN SHOULD I CALL MY HEALTH CARE PROVIDER?Your medicine is not helping to make the pain go away.???You vomit or have diarrhea shortly after taking the medicine.???You develop new pain in areas that did not hurt before.???You have an allergic reaction to your medicine. This may include:???Itchiness.???Swe lling.???Dizziness.???Devel oping a new rash.WHEN SHOULD I CALL 911 OR GO TO THE EMERGENCY ROOM?You feel dizzy or you faint.???You are very confused or disoriented.???You repeatedly vomit.???Your skin or lips turn pale or bluish in color.???You have shortness of breath or you are breathing much more slowly than usual.???You have a severe allergic reaction to your medicine. This includes:???Developing tongue swelling.???Having difficulty breathing.This information is not intended to replace advice given to you by your health care provider. Make sure you discuss any questions you have with your health care provider.Document Released: 12/24/2001 Document Revised: 02/01/2016 Document Reviewed: 07/22/2015[employer] Interactive Patient Education ?2016 [employer].Infection Control in the HomeIf you have an infection or you are taking care of someone who has an infection, it is important to know how to keep the infection from spreading. Follow these guidelines to help stop the spread of infection, and talk to your health care provider.HOW ARE INFECTIONS SPREAD?In order for an infection to spread, the following must be present:???A germ. This may be a virus, bacteria, fungus, or parasite.???A place for the germ to live. This may be:???On or in a person, animal, plant, or food.???In soil or water.???On surfaces, such as a door handle.???A susceptible host. This is a person or animal who does not have resistance (immunity) to the germ.???A way for the germ to enter the host. This may occur by:???Direct contact. This may happen by making contact?such as shaking hands or hugging?with an infected person or animal. Some germs can also travel through the air and spread to you if an infected person coughs or sneezes on you or near you.???Indirect contact. This is when the germ enters the host through contact with an infected object. Examples include eating contaminated food, drinking contaminated water, or touching a contaminated surface with your hands and then touching your face, nose, or mouth soon after that.HOW CAN I HELP TO PREVENT INFECTION FROM SPREADING?There are several things that you can do to help prevent infection from spreading.Hand WashingIt is very important to wash your hands correctly, following these steps:1.??Wet your hands with clean, running water.2.??Apply soap to your hands. Liquid soap is better than bar soap.3.??Rub your hands together quickly to create lather.4.??Keep rubbing your hands together for at least 20 seconds. Thoroughly scrub all parts of your hands, including under your fingernails and between your fingers.5.??Rinse your hands with clean, running water until all of the soap is gone.6.??Dry your hands with an air dryer or a clean paper or cloth towel, or let your hands air-dry. Do not use your clothing or a soiled towel to dry your hands.7.??If you are in a public restroom, use your towel to turn off the water faucet and to open the bathroom door.Make sure to wash your hands:???Before:???Visiting a baby or anyone with a weakened or lowered defense (immune) system.???Putting in and taking out any contact lenses.???After:???Working or playing outside.???Touching an animal or its toys or leash.???Handling livestock.???Using the bathroom or helping a child or adult to use the bathroom.???Using household insole toe snipping machine operator or toxic chemicals.???Touching or taking out the garbage.???Touching anything dirty around your home.???Handling soiled clothes or rags.???Taking care of a sick child. This includes touching used tissues, toys, and clothes.???Sneezing, coughing, or blowing your nose.???Using public transportation.???Shaking hands.???Using a phone, including your mobile phone.???Touching money.???Before and after:???Preparing food.???Preparing a bottle for a baby.???Feeding a baby or a young child.???Eating.???Visiting or taking care of someone who is sick.???Changing a diaper.???Changing a bandage (dressing) or taking care of an injury or wound.???Giving or taking medicine.Taking Care of Your Home???Make sure that you have enough cleaning supplies at all times. These include:???Disinfectants.?? ?Reusable cleaning cloths. Wash these after each use.???Paper towels.???Utility gloves. Replace your gloves if they are cracked or torn or if they start to peel.???Use bleach safely. Never mix it with other cleaning products, especially those that contain ammonia. This mixture can create a dangerous gas that may be deadly.???Take care of your cleaning supplies. Toilet brushes, mops, and sponges can breed germs. Soak them in bleach and water for 5 minutes after each use.???Do not pour used mop water down the sink. Pour it down the toilet instead.???Maintain proper ventilation in your home.???If you have a pet, ensure that your pet stays clean. Do not let people with weak immune systems touch bird droppings, fish tank water, or a litter box.???If you have a cat, be sure to change the litter every day.???In the bathroom, make sure you:???Provide liquid soap.???Change towels and washcloths frequently. Avoid sharing towels and washcloths.???Change toothbrushes often and store them separately in a clean, dry place.???Disinfect the toilet.???Clean the tub, shower, and sink with standard cleaning products. ?Mop the floor with a standard drycleaner.???Do not share personal items, such as razors, toothbrushes, drinking glasses, deodorant, colon, brushes, towels, and washcloths. ?In the kitchen, make sure you:???Store food carefully.???Refrigerate leftovers promptly in covered containers. ???Throw out stale or spoiled food.???Clean the inside of your refrigerator each week.???Keep your refrigerator set at 40?F (4?C) or less, and set your freezer at 0?F (?18?C) or less.???Thaw foods in the refrigerator or microwave, not at room temperature.???Serve foods at the proper temperature. Do not eat raw meat. Make sure it is cooked to the appropriate temperature.?Cook eggs until they are firm.???Wash fruits and vegetables under running water.???Use separate cutting boards, plates, and utensils for raw foods and cooked foods.???Keep work surfaces clean.???Use a clean spoon each time you sample food while cooking.???Wash your dishes in hot, soapy water. Air-dry your dishes or use a operator supply.???Do not share forks, cups, or spoons during meals.???Wear gloves if laundry is visibly soiled.???Change linens each week or whenever they are soiled.???Do not shake soiled linens. Doing that may send germs into the air. Put dressings, sanitary or incontinence pads, diapers, and gloves in plastic garbage bags for disposal.This information is not intended to replace advice given to you by your health care provider. Make sure you discuss any questions you have with your health care provider.Document Released: 06/26/2009 Document Revised: 10/08/2015 Document Reviewed: 05/20/2015[employer] Interactive Patient Education ?2016 [email or web address]Incentive SpirometerAn incentive spirometer is a tool that can help keep your lungs clear and active. This tool measures how well you are filling your lungs with each breath. Taking long, deep breaths may help reverse or decrease the chance of developing breathing (pulmonary) problems (especially infection) following:???Surgery of the chest or abdomen.???Surgery if you have a history of smoking or a lung problem.???A long period of time when you are unable to move or be active.BEFORE THE PROCEDURE???If the spirometer includes an indicator to show your best effort, your nurse or respiratory therapist will set it to a desired goal.???If possible, sit up straight or lean slightly forward. Try not to slouch.???Hold the incentive spirometer in an upright position.INSTRUCTIONS FOR USE1.??Sit on the edge of your bed if possible, or sit up as far as you can in bed or on a chair. 2.??Hold the incentive spirometer in an upright position. 3.??Breathe out normally.4.??Place the mouthpiece in your mouth and seal your lips tightly around it. 5.??Breathe in slowly and as deeply as possible, raising the piston or the ball toward the top of the column. 6.??Hold your breath for 3?5 seconds or for as long as possible. Allow the piston or ball to fall to the bottom of the column. 7.??Remove the mouthpiece from your mouth and breathe out normally.8.??Rest for a few seconds and repeat Steps 1 through 7 at least 10 times every 1?2 hours when you are awake. Take your time and take a few normal breaths between deep breaths.9.??The spirometer may include an indicator to show your best effort. Use the indicator as a goal to work toward during each repetition. 10.??After each set of 10 deep breaths, practice coughing to be sure your lungs are clear. If you have an incision (the cut made at the time of surgery), support your incision when coughing by placing a pillow or rolled-up towels firmly against it. Once you are able to get out of bed, walk around indoors and cough well. You may stop using the incentive spirometer when instructed by your caregiver. RISKS AND COMPLICATIONS???Breathing too quickly may cause dizziness. At an extreme, this could cause you to pass out. Take your time so you do not get dizzy or light-headed. ???If you are in pain, you may need to take or ask for pain medication before doing incentive spirometry. It is harder to take a deep breath if you are having pain.AFTER USE???Rest and breathe slowly and easily. ???It can be helpful to keep a log of your progress. Your caregiver can provide you with a simple table to help with this. If you are using the spirometer at home, follow these instructions:SEEK MEDICAL CARE IF:???You are having difficultly using the spirometer. ???You have trouble using the spirometer as often as instructed.???Your pain medication is not giving enough relief while using the spirometer.???You develop fever of 100.5?F (38.1?C) or higher. SEEK IMMEDIATE MEDICAL CARE IF:???You cough up bloody sputum that had not been present before.???You develop fever of 102?F (38.9?C) or greater.???You develop worsening pain at or near the incision site.MAKE SURE YOU:???Understand these instructions. ???Will watch your condition.???Will get help right away if you are not doing well or get worse.This information is not intended to replace advice given to you by your health care provider. Make sure you discuss any questions you have with your health care provider.Document Released: 01/28/2008 Document Revised: 10/08/2015 Document Reviewed: 04/26/2015Mare Interactive Patient Education ?2016 [employer]Hand WashingGerms like bacteria, viruses, and parasites are found everywhere. They can be in the air and water, and they can be on surfaces like food, door handles, and your skin. Every day, your hands touch germs. Many of these germs can make you and your family sick. Washing your hands is one of the best ways to lower your risk of getting and sharing germs. WHEN SHOULD I WASH MY HANDS OR USE A HAND-WASHING ALCOHOL GEL?You should wash your hands whenever you think they are dirty. You should also wash your hands:???Before:???Visiting a baby or anyone with a weakened or lowered defense (immune) system.???Putting in and taking out any contact lenses.???After:???Working or playing outside.???Touching an animal or its toys or leash.???Handling livestock, such as cows or sheep.???Using the bathroom.???Using household insole toe snipping machine operator or poisonous chemicals.???Touching or taking out the garbage.???Touching anything dirty around your home.???Handling dirty clothes or rags.???Taking care of a sick child. This includes touching used tissues, toys, and clothes.???Sneezing, coughing, or blowing your nose.???Using public transportation.???Shaking hands.???Using a phone, including your mobile phone.???Touching money.???Before and after:???Preparing food.???Preparing a bottle for a baby.???Feeding a baby or young child.???Eating.???Visiting or taking care of someone who is sick.???Changing a diaper.???Changing a bandage (dressing).???Taking care of an injury or wound.???Giving or taking medicine.If you are preparing food, hand-washing alcohol gels are not recommended as a replacement for hand washing.WHAT IS THE RIGHT WAY TO WASH MY HANDS?Wet your hands with clean, running water.???Apply liquid soap or bar soap to your hands.???Rub your hands together quickly to create lather.???Keep rubbing your hands together for at least 20 seconds. Thoroughly scrub all parts of your hands, including under your fingernails and between your fingers.???Rinse your hands with clean, running water. Do this until all the soap is gone.???Dry your hands using an air dryer or a clean paper or cloth towel, or let your hands air-dry. Do not use your clothing or a dirty towel to dry your hands.???If you are in a public restroom, use your towel:???To turn off the water faucet.???To open the bathroom door.This information is not intended to replace advice given to you by your health care provider. Make sure you discuss any questions you have with your health care provider.Document Released: 08/30/2009 Document Revised: 10/08/2015 Document Reviewed: 02/12/2015Mare Interactive Patient Education ?2016 [employer]Fall Prevention in the HomeFalls can cause injuries. They can happen to people of all ages. There are many things you can do to make your home safe and to help prevent falls. WHAT CAN I DO ON THE OUTSIDE OF MY HOME?Regularly fix the edges of walkways and driveways and fix any cracks.???Remove anything that might make you trip as you walk through a door, such as a raised step or threshold.???Trim any bushes or trees on the path to your home.???Use bright outdoor lighting.???Clear any walking paths of anything that might make someone trip, such as rocks or tools.???Regularly check to see if handrails are loose or broken. Make sure that both sides of any steps have handrails.???Any raised decks and porches should have guardrails on the edges.???Have any leaves, snow, or ice cleared regularly.???Use sand or salt on walking paths during winter.???Clean up any spills in your garage right away. This includes oil or grease spills.WHAT CAN I DO IN THE BATHROOM?Use night lights.???Install grab bars by the toilet and in the tub and shower. Do not use towel bars as grab bars.???Use non-skid mats or decals in the tub or shower.???If you need to sit down in the shower, use a plastic, non-slip stool.???Keep the floor dry. Clean up any water that spills on the floor as soon as it happens.???Remove soap buildup in the tub or shower regularly.???Attach bath mats securely with double-sided non-slip rug tape.???Do not have throw rugs and other things on the floor that can make you trip.WHAT CAN I DO IN THE BEDROOM?Use night lights.???Make sure that you have a light by your bed that is easy to reach.???Do not use any sheets or blankets that are too big for your bed. They should not hang down onto the floor.???Have a firm chair that has side arms. You can use this for support while you get dressed.???Do not have throw rugs and other things on the floor that can make you trip.WHAT CAN I DO IN THE KITCHEN?Clean up any spills right away.???Avoid walking on wet floors.???Keep items that you use a lot in lpcv-wi-puraw places.???If you need to reach something above you, use a strong step stool that has a grab bar.???Keep electrical cords out of the way.???Do not use floor chilean or wax that makes floors slippery. If you must use wax, use non-skid floor wax.???Do not have throw rugs and other things on the floor that can make you trip.WHAT CAN I DO WITH MY STAIRS?Do not leave any items on the stairs.???Make sure that there are handrails on both sides of the stairs and use them. Fix handrails that are broken or loose. Make sure that handrails are as long as the stairways.???Check any carpeting to make sure that it is firmly attached to the stairs. Fix any carpet that is loose or worn.???Avoid having throw rugs at the top or bottom of the stairs. If you do have throw rugs, attach them to the floor with carpet tape.???Make sure that you have a light switch at the top of the stairs and the bottom of the stairs. If you do not have them, ask someone to add them for you.WHAT ELSE CAN I DO TO HELP PREVENT FALLS?Wear shoes that:???Do not have high heels.???Have rubber bottoms.???Are comfortable and fit you well.???Are closed at the toe. Do not wear sandals.???If you use a stepladder:???Make sure that it is fully opened. Do not climb a closed stepladder.???Make sure that both sides of the stepladder are locked into place.???Ask someone to hold it for you, if possible.???Clearly jon and make sure that you can see:???Any grab bars or handrails.???First and last steps.???Where the edge of each step is.???Use tools that help you move around (mobility aids) if they are needed. These include:???Canes.???Walkers .???Scooters.???Crutches.?? ?Turn on the lights when you go into a dark area. Replace any light bulbs as soon as they burn out.???Set up your furniture so you have a clear path. Avoid moving your furniture around.???If any of your floors are uneven, fix them.???If there are any pets around you, be aware of where they are.???Review your medicines with your doctor. Some medicines can make you feel dizzy. This can increase your chance of falling.Ask your doctor what other things that you can do to help prevent falls.This information is not intended to replace advice given to you by your health care provider. Make sure you discuss any questions you have with your health care provider.Document Released: 07/14/2010 Document Revised: 02/01/2016 Document Reviewed: 10/22/2015Mare Interactive Patient Education ?2016 [employer].Constipation, AdultConstipation is when a person has fewer than three bowel movements a week, has difficulty having a bowel movement, or has stools that are dry, hard, or larger than normal. As people grow older, constipation is more common. A low-fiber diet, not taking in enough fluids, and taking certain medicines may make constipation worse. CAUSES???Certain medicines, such as antidepressants, pain medicine, iron supplements, antacids, and water pills. ?Certain diseases, such as diabetes, irritable bowel syndrome (IBS), thyroid disease, or depression. ?Not drinking enough water. ?Not eating enough fiber-rich foods. ?Stress or travel. ?Lack of physical activity or exercise. ?Ignoring the urge to have a bowel movement. ?Using laxatives too much. ?SIGNS AND SYMPTOMS???Having fewer than three bowel movements a week. ?Straining to have a bowel movement. ?Having stools that are hard, dry, or larger than normal. ?Feeling full or bloated. ?Pain in the lower abdomen. ?Not feeling relief after having a bowel movement. ?DIAGNOSISYour health care provider will take a medical history and perform a physical exam. Further testing may be done for severe constipation. Some tests may include:???A barium enema X-ray to examine your rectum, colon, and, sometimes, your small intestine. ?A sigmoidoscopy to examine your lower colon. ?A colonoscopy to examine your entire colon. TREATMENTTreatment will depend on the severity of your constipation and what is causing it. Some dietary treatments include drinking more fluids and eating more fiber-rich foods. Lifestyle treatments may include regular exercise. If these diet and lifestyle recommendations do not help, your health care provider may recommend taking baih-qoq-onctoif laxative medicines to help you have bowel movements. Prescription medicines may be prescribed if tjdq-gml-dpqqfgo medicines do not work. HOME CARE INSTRUCTIONS???Eat foods that have a lot of fiber, such as fruits, vegetables, whole grains, and beans.???Limit foods high in fat and processed sugars, such as armenian fries, hamburgers, cookies, candies, and soda. ?A fiber supplement may be added to your diet if you cannot get enough fiber from foods. ?Drink enough fluids to keep your urine clear or pale yellow. ?Exercise regularly or as directed by your health care provider. ?Go to the restroom when you have the urge to go. Do not hold it. ?Only take kqvk-vde-vwtvsnd or prescription medicines as directed by your health care provider. Do not take other medicines for constipation without talking to your health care provider first. ? SEEK IMMEDIATE MEDICAL CARE IF:???You have bright red blood in your stool. ?Your constipation lasts for more than 4 days or gets worse. ?You have abdominal or rectal pain. ?You have thin, pencil-like stools. ?You have unexplained weight loss. MAKE SURE YOU:???Understand these instructions.???Will watch your condition.???Will get help right away if you are not doing well or get worse.This information is not intended to replace advice given to you by your health care provider. Make sure you discuss any questions you have with your health care provider.Document Released: 06/15/2005 Document Revised: 10/08/2015 Document Reviewed: 06/29/2014Elsevier Interactive Patient Education ?2016 [employer]Mindful Eating - Building New HabitsHealth EducationMindful eating is a jose part of good nutrition. Being mindful of what you are eating and enjoying the food you eat is an excellent habit to build. It can help you manage your weight, follow a special diet such as for diabetes, or eat healthier.You may find that you eat quickly or don't pay much attention to what or how much you are eating. This can lead to eating much more than you realize. When you eat mindlessly, you don't feel as satisfied as when you slow down and enjoy your food. Your mind needs to feel full - not just your stomach.Many people eat as a way of dealing with emotions and stress. Eating when you are bored, anxious or need comfort is very common. You may find yourself eating without even thinking about whether or not you are hungry.To increase your awareness:- Before eating anything make a conscious effort to ask yourself if you are really hungry.- Try keeping a food journal. Record how you are feeling as you begin and end eating, what you are eating, and the time you are eating.When you eat:- Slow down and savor each bite. Put down your fork between bites.- Try smelling your food. Enjoy the different scents of foods.- Focus on chewing food well and enjoying the tastes and textures of what you are eating.- Eat at the table. Put your food on a plate and sit down when you eat.- Don't multi-task while eating or eat in front of the TV or the computer.To avoid eating without thinking or overeating:- If there is food left on your plate and you are no longer hungry, cover it with a napkin or clear your plate. Clean up after meals.- Don't leave food sitting out and avoid candy dishes.- Don't keep food at your desk or in your office at work.- At parties, don't stand close to the food tables. Focus on enjoying the company.- Portion out your food. Never eat out of an original container such as a box of crackers or a bag of chips.Building mindful eating habits takes time and practice - just like any other skill. Share what you are doing with you friends and family members and ask them to support your efforts.Talk with your dietitian, nurse or doctor about any questions or concerns.To learn more about mindful eating:Eat What You Love and Love What You Eat by Julianna Chun M.D.www.[facility].comEating Mindfully: How to End Mindless Eating and Enjoy a Balanced Relationship with Food by Isabela Diaz.eatingmindfully.c omMindful Eating: A Guide to Rediscovering a Healthy and Joyful Relationship with Food by Wallace Keatingindless Eating: Why We Eat More Than We Think by Anderson De León to Eating HealthyHealth EducationHealthful eating is one of the most important things you can do to improve your health. You may be able to decrease your risk of diabetes, obesity, heart disease, osteoporosis, and certain cancers. Use USDA's MyPlate and food labels as tools to plan and balance your choices over the course of the day or week.These Guidelines are Jose to Eating HealthfullyDon't skip meals.You will have more energy and feel better if you eat at least 3 times a day. It's hard to get all of the nutrients you need when you skip meals. You may be tempted to make poor choices and to overeat when you do sit down to eat.Eat a variety of foods from all the food groups.This is where USDA's MyPlate will come in handy. Each food group provides some, but not all, of the nutrients you need. No one food group is more important than another- for good health you need them all. If you avoid one whole food group, your diet may be out of balance and missing jose nutrients.Be realistic.Give yourself time to learn new, healthful eating habits. Most foods can be included in moderation. Control your portion sizes and eat what you have planned. Balance out your day. If one meal went ??out of bounds,?? 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 Know your triggers, such as boredom or stress, which lead to overeating and find a healthful alternative such as exercise.Plan ahead.Determine healthful foods that you and your family enjoy. Plan meals before going to the grocery store and stick to your list of healthful foods. Plan for some easy-to-fix meals for when you are crunched for time. Pack healthful snacks to take along with you when needed. Avoid shopping when you are hungry, because you may be tempted to make poor choices. Don't buy the high fat or high calorie foods or snacks that you know you have trouble resisting.Eat 5 fruits and vegetables each day.Fruits and vegetables are a jose part of your healthy eating plan. They are packed with fiber, vitamins, minerals, and cancer fighting antioxidants. They make great healthful snacks and are easy to grab and eat when you are in a hurry. You can include them in every meal by having fruit on your cereal at breakfast,salads at lunch, cooked veggies for dinner or fruit as dessert. Choose fresh fruits and vegetables that are in season for the best taste and best prices.Choose high fiber foods.Dietary fiber that occurs naturally in foods may help reduce the risk of cardiovascular disease, obesity, and type 2 diabetes. The goal is to eat 25 to 38 grams of fiber daily. Whole grain breads and cereals, beans, legumes, fruits, and vegetables are all high in fiber. The amount of fiber is listed on food labels.Choose foods lower in fat and cholesterolCut down on food that is high in fat and cholesterol to keep your heart healthy, help lower your cholesterol levels, and help control your weight. The goal is to get no more than 30% of your total calories from fat. Aim for a cholesterol intake of less than 300 mg per day. Cook with less added fat, choose small amounts of healthier fats such as vegetable oil or olive oil, and avoid frying.Choose foods lower in salt.The easiest way to eat less salt is to stop adding salt to your food. Remove the salt shaker from the table to help break the habit of salting food before tasting it. Many other seasonings such as pepper and herb blends can be used to add flavor. Avoid seasoning ??salts.?? Many nspja-ml-ycz and canned foods are high in salt. A healthful goal is to keep your salt intake to 2,300 mg of sodium per day. Your doctor may prescribe a lower sodium goal of 1,500 mg per day if you have high blood pressure, heart failure, or kidney disease. Read the food labels for sodium per serving to choose the foods that are lower in sodium.Everyone needs calcium.Our bodies need calcium throughout our lives for strong teeth and bones. Calcium is also important for our blood, nerves, and muscles. If you do not eat enough calcium, your body takes calcium from your bones, which can put you at risk for developing osteoporosis (a bone-thinning disease). The dairy group is a great source of calcium. If you do not drink milk, try eating other calcium-rich foods such as cheese, yogurt, dark leafy greens, broccoli, or calcium-fortified cereals and juice. The goal is 3 servings of calcium-rich foods every day. Children, teenagers, and women need 4 servings per day.Choose carefully when eating out.Eating out can be a fun way to visit with family and friends and to try new foods, but it can be hard to make healthy choices. Portion sizes are often very large, which can lead to overeating. It is best not to eat fast food more than 2 times a week because many fast food menu items are high in salt, fat, and calories. - Choose grilled meats instead of fried. - Ask for gravy, sauce, and low-fat dressing on the side. - Avoid asking for refills on the bread basket. - Plan on taking some of the food home or skipping dessert once you are full and avoid hpo-koo-yql-eat buffets. - laboratory animal facility supervisor the nutrition information cards available at many of the fast foods places to help make healthier choices. The jose to eating healthfully is to set your goals, choose wisely, and start today!More Resources Include:www.choosemyplate.g H[employer]'s MyPlatewww.eatright.orgAmer ican Dietetic Association Sample Food Label PATIENT DISCHARGE INSTRUCTIONSignature Page for: SIOBHAN HAAS DDate/Time: 11/29/2017 14:13:41A Clinician has explained the information on my discharge instructions and has provided me with a copy.My questions have been answered to my satisfaction. Patient Signature Date/Time Responsible Party Date/Time Relationship to Patient Clinician Signature ___ Date/Time _ Normal [facility] PreOp Nursingon 11-29-2017 Cholesterol [facility] NA PreOp Nursing Record Summary Primary Physician: Rigo Shelton DO Finalized Date/Time: 11/29/17 10:09:34 Pt. Name: SIOBHAN HAAS /Sex: 1960 Female Med Rec #: [id number] Physician: Financial #: [id number] Pt. Type: A Room/Bed: [facility] Admit/Disch: 11/28/17 12:09:00 - Institution: [facility] NA OR PreOp Case Times Entry 1 PreOp Case Times In Room Time 11/28/17 13:33:00 Out Room Time 11/28/17 15:41:00 Last Modified By: Iris Mcbride RN 11/28/17 16:20:08 [facility] NA OR PreOp Case Attendees Entry 1 Case Attendee Anahi Reyes RN Role Performed RN Last Modified By: Ivette Wilson RN 11/29/17 10:09:29 General Comments: 11/29/2017 1008 Added Anahi Reyes RN from Pre-procedure Comprehension Assessment. Ivette COHNN, RN, nurse inventory auditor Finalized By: Ivette Wilson RN Document Signatures Signed By: Ivette Wilson RN 11/29/17 10:09 Normal [facility] Progress Noteson 11-29-2017 Progress Notes Patient: ME VELASQUEZ HAAS Age: 57 years Sex: Female : 1960 Associated Diagnoses: None Author: Ed Howell MD Assessment Assessment Diagnosis: Osteoarthritis ([id number] M19.171, Working, Medical). Right Ankle. Dr. Shelton. Plan Stable medically POD #1. I reviewed the labs today. Right ankle pain: Status/post right foot/ankle arthrodesis by Dr. Shelton 11/28/17.Deep venous thrombosis prophylaxis: DVT prophylaxis is recommended as per 2012 ACCP guidelines. Defer ultimate decision to the primary service. Encourage lower extremity venous return exercises.Pain control: Short acting oral narcotics, as well as IV Dilaudid, have been ordered, to be adjusted as indicated. She was on Tramadol and Gabapentin for pain at home prior to surgery. She feels this will not hold her current pain. Pain seems to be under good control.Chronic Pain Syndrome (G89.4) - chronic condition present on admission, patient may exhibit opiate tolerance, but was on Tramadol and Gabapentin only for pain preoperatively. Note made of stimulator placements.Asthma (J45.909) - chronic condition present on admission. Currently without acute exacerbation, patient will require close monitoring of respiratory status perioperatively including use of continuous pulse oximetry. Med nebs with albuterol/Atrovent have been ordered when necessary. Chronic prescription home medications have been reordered. No SOB or wheezing today. Weaning O2.Gastroesophageal Reflux Disease (K21.9) - chronic condition present on admission, controlled with proton pump inhibitor which has been reordered. No GI complaints and tolerating a diet.Hypertension (I10) -chronic condition present on admission. Patient's home prescription antihypertensive medicines have been ordered. As needed clonidine has been added. Last BP was stable at 101/55.Anxiety Disorder (F41.9)- chronic and present on admission, controlled with home prescription medications which have been reordered.Depression (F32.9) - chronic condition present on admission, controlled with home medications which have been reordered.Obstructive Sleep Apnea (G47.33) - chronic condition present on admission. Patient will be at risk for postoperative respiratory complications and will require monitoring on the [place] protocol. She has her home BiPAP at the hospital for use while sleeping. She reports she uses 2 LPM of oxygen every night through her BiPAP. Weaning O2.Restless Leg Syndrome (G25.81) - chronic condition present on admission. Patient's home prescription medications have been reordered. Rheumatoid Arthritis (M06.9) - chronic condition present on admission. Patient had a short taper of oral steroids in August 2017 due to acute bronchitis, but is not on chronic steroids. Her Plaquenil was recently started and has been reordered postoperatively. She was given no special instructions regarding its perioperative or postoperative usage.History of urinary incontinence: Status/post bladder stimulator placement. Monitor PVRs and U.O. postoperatively.Pre-diabete s (R73.09) -chronic condition present on admission. May be exacerbated post procedure due to pain, immobility, and corticosteroid exposure. Patient will be followed with qwsrl-xf-cvak glucose and sliding scale insulin if needed. Last BS was 169.Okay for discharge medically if meets criteria. I reviewed the home medications and reconciled these on our discharge form. The DVT prophylaxis and pain medications will be done by the primary surgical team. Supervising Physician Comments Chief Complaint Postoperative Medical Care Postoperative Information Postoperative Follow Up Postoperative Follow Up: Day 1. Health Status Allergies Allergic Reactions (Selected)ModerateClonazePA M- Memory loss.Ketamine- Hallucinations. Subjective Patient indicates that pain is controlled.Review of SystemsConstitutional: denies fever. Head/Neck: denies headache. Eye: denies eye pain. Ear/Nose/Mouth/Throat: denies sore throat. Neurologic: no focal, denies weakness. Cardiovascular: denies chest pain. Respiratory: denies dyspnea. Gastrointestinal: denies abdominal pain. No nausea/vomiting. Passing flatus. Genitourinary: denies incomplete voiding. Skin: denies rash. Objective Last Charted Vital Signs Temperature: 97.7 (11/29 07:00) Pulse: 72 (11/29 07:00) Respiration: 16 (11/29 07:00) BP: 101/55 (11/29 07:00) Activity: Awake (11/29 07:00) Pulse Ox: 96 (11/29 09:32) Oxygen Delivery: Room air (11/29 09:32) Pain Score: 2 (11/29 07:15) General - No Apparant DistressSkin - No Rash, Normal TurgorCardiovascular - RRR, No MGR, No Peripheral EdemaRespiratory - CTA, Normal Resp. EffortGI - Soft Nontender, + BS, No HSMMusculoskeletal - Dorsiflexion Intact, No Calf Tenderness Neuro/Psych - A and Ox3, Appropiate Mood and Affect Intake and Output (Previous 24Hrs) I and O Summary Begin date: 11/28 11:05 End date: 11/29 11:05 24 Hour Intake: 580.00 Output: 3950.00 Balance: -3370.00 Last BM: No BM Charted Results Review Labs - Last 36 hours (Max 2 / lab test) CHEMISTRY So dium 136 (11/29 03:47) 139 (11/28 14:20) Potassium 4.0 (11/29 03:47) 3.6 (11/28 14:20) Chloride 99 (11/29 03:47) 102 (11/28 14:20) CO2 27 (11/29 03:47) 29 (11/28 14:20) Glucose 169 (11/29 03:47) 84 (11/28 14:20) Glucose POCT 177 (11/29 06:00) 111 (11/28 19:54) BUN 12 (11/29 03:47) 14 (11/28 14:20) Creatinine 0.84 (11/29 03:47) 0.73 (11/28 14:20) Calcium Total 8.9 (11/29 03:47) 8.8 (11/28 14:20) Magnesium No result HEMATOLOGY W BC 9.8 (11/29 03:47) RBC 4.47 (11/29 03:47) Hb 13.2 (11/29 03:47) Hematocrit 38.7 (11/29 03:47) Platelets 217 (11/29 03:47) MCV 86.5 (11/29 03:47) MCH 29.5 (11/29 03:47) RDW 15.1 (11/29 03:47) MCHC 34.2 (11/29 03:47) Neutrophil Ab 8.9 (11/29 03:47) Monocyte Ab 0.4 (11/29 03:47) Eosinophil Ab 0.0 (11/29 03:47) Basophil Ab 0.0 (11/29 03:47) Lymphocyte Ab 0.5 (11/29 03:47) OTHER LABS ___Est CrCl IBW (mL/min)-RX 70.81 mL/min (11/29 03:47) 81.48 mL/min (11/28 14:20) Est CrCl AdjBW (mL/min)-R 108.17 mL/min (11/29 03:47) 124.47 mL/min (11/28 14:20) BUN / Creatinine Ratio 14 (11/29 03:47) 19 (11/28 14:20) MPV 9.0 FL (11/29 03:47) Diff Method AUTOMATED DIFFERENTIAL (11/29 03:47) Neutrophil Percent 90.2 % (11/29 03:47) Lymphocyte Percent 5.6 % (11/29 03:47) Monocyte Percent 4.1 % (11/29 03:47) Eosinophil Percent 0.0 % (11/29 03:47) Basophil Percent 0.1 % (11/29 03:47) X-rays last 36 hours XR Fluoro Less 1 Hour (Statistics)(NR): 11/28/17 17:45:00 See Radiology Report for More Detail XR C-Spine 2 or 3 Views: 11/28/17 12:28:19 See Radiology Report for More Detail Diagnosis Documentation Communication Normal [facility] Anesthesia Postoperative Not sharron 11-28-2017 Anesthesia Postoperative Note Patient: SIOBHAN HAAS MRN: [id number] Age: 57 years Sex: Female : 1960 Associated Diagnoses: None Author: Jamel Montgomery DO Subjective Subjective: Patient participated in the evaluation: Yes. Nausea: not present. Vomiting: not present. Pain: acceptable pain control. Objective Objective: Vital Signs: Last Charted Vital Signs Temperature: 99.4 (11/28 19:15) Pulse: 66 (11/28 19:30) Respiration: 15 (11/28 19:30) BP: 110/63 (11/28 19:30) Pulse Ox: 92 (11/28 19:30) Oxygen Delivery: Nasal cannula (11/28 19:30) O2 Device Flow: 3 L/min Pain Score: 7 (11/28 19:30). Mental Status: alert and oriented. Postoperative hydration: adequate. Assessment Assessment: Post anesthetic condition: no anesthetic complications, the patient is doing well, pain is adequately controlled. Airway patent: yes. Plan Plan: Postanesthesia Plan: post anesthetic surveillance concluded. [facility] Anesthesia Preoperative [facility] 11-28-2017 Anesthesia Preoperative Assessment Patient: SIOBHAN HAAS MRN: [id number] Age: 57 years Sex: Female : 1960 Associated Diagnoses: None Author: Julisa Reeves DO Preoperative Information Planned Procedure right ankle gastrocnemius recession ankle quentin modified brostrum talonavicular joint arthrodesis obtain calcaneal autograft Histories Past Medical History: Active Asthma CRPS (complex regional pain syndrome type I) - pain stimulator GERD (gastroesophageal reflux disease) Hypertension Mixed anxiety and depressive disorder FAY treated with BiPAP RLS (restless legs syndrome) Rheumatoid arthritis - dr. chow Urinary incontinence - bladder stimulator Spinal cord stimulator PVD pre-DM Ex-smoker, Cardiovascular: Greater than or equal to 4 metabolic equivalents (METS) without symptoms Social History: Type of Tobacco Use: Cigarettes Date Quit Smokin Smoking Status: Former smoker, quit more than 1 year ago How Often Do You Drink ..: 2 to 4 Times Per Month (2) How Many Standard Drink..: 1 or 2 (0) How Often Did You Have ..: Never (0) Attended AA: No Audit-C Score: 2 Anesthesia History: No previous anesthetic complications Medications Allergies clonazePAM: Moderate, Memory loss ketamine: Moderate, Hallucinations Home Medications AmLODIPine (amLODipine 10 mg oral tablet) 1 Tab = 10 mg By Mouth once a day am PARoxetine (Paxil 40 mg oral tablet) 1 Tab = 40 mg By Mouth Bedtime TraMADol (traMADol 50 mg oral tablet) 1 Tab = 50 mg By Mouth 4 Times/Day cyclobenzaprine 10 mg By Mouth Bedtime gabapentin (gabapentin 300 mg oral capsule) 1 Cap = 300 mg By Mouth 5 Times/Day hydroCHLOROthiazide-losarta n (Losartan/hydroCHLOROthiazi de 100 mg/12.5 mg) 1 Tab By Mouth once a day am hydroxychloroquine (Plaquenil 200 mg oral tablet) 1 Tab = 200 mg By Mouth Twice a day meloxicam (Mobic 7.5 mg oral tablet) 1 Tab = 7.5 mg By Mouth Twice a day montelukast (Singulair 10 mg oral tablet) 1 Tab = 10 mg By Mouth once a day am omeprazole (omeprazole 20 mg oral enteric coated capsule) 1 Cap = 20 mg By Mouth once a day am pramipexole (pramipexole 1.5 mg oral tablet) 1 Tab = 1.5 mg By Mouth Twice a day 5:30 and 9:30 Physical Examination VS/Measurements: Breathing: Via room air. Mouth/Airway: Dental (from Forms) No dental information charted. Mallampati: Class 2. Dental status: Teeth in good repair. Neck: Full range of movement. Mouth: Mouth opening unrestricted. Jaw: Normal jaw. Respiratory: Breath sounds equal bilaterally, no wheezing, no rhonchi, no rales. Right lung: Clear to auscultation. Left lung: Clear to auscultation. Cardiovascular: Cardiac sounds: regular rhythm, no murmurs, no gallops. Rhythm: Regular. Neurologic: Oriented to person, time, place, and situation. No gross neurological deficits noted. Results Review General results Laboratory Last 90 Days Chemistry 11/28/17 14:20, Sodium = 139 mMol/L 11/28/17 14:20, Potassium = 3.6 mMol/L 11/28/17 14:20, Chloride = 102 mMol/L 11/28/17 14:20, CO2 = 29 mMol/L 11/28/17 14:20, Glucose = 84 mg/dL 11/28/17 14:20, BUN = 14 mg/dL 11/28/17 14:20, Creatinine = 0.73 mg/dL 11/28/17 14:20, Calcium Total = 8.8 mg/dL Other Labs 11/28/17 14:20, Est CrCl IBW (mL/min)-RX = 81.48 mL/min 11/28/17 14:20, Est CrCl AdjBW (mL/min)-RX = 124.47 mL/min 11/28/17 14:20, BUN / Creatinine Ratio = 19 Point Of Care Tests No point of care testing charted Assessment ASA Classification 3. Oral intake status Nothing after midnight. Plan Anesthesia Discussion The patient was interviewed:: Yes. The patient was examined:: Yes. Informed Consent:: Obtained. The anesthetic plan, options, risks, and benefits were discussed:: With the patient. Anesthesia Preoperative Plan The participation of Certified Registered Nurse Anesthetists was discussed: Yes. Proceed with surgery: Yes. Proposed Anesthesia Type: General. Need for post-op ICU: No. Patient requests/comments: Blood Product Preference: Yes blood products. The following risks/potential anesthesia problems were discussed: Nausea, Vomiting, Sore throat. Normal [facility] Anesthesia Recordon 11-28-19 18 Anesthesia Record Patient: ME VELASQUEZ HAAS MRN: ([id number] Age: 57 years Sex: Female : 1960 Associated Diagnoses: None Author: Julisa Reeves DO Procedure Time Out [place] Protocol: patient identity verified, site verified, side verified, procedure to be done verified, patient position verified. REGIONAL ANESTHESIA PROCEDURE Procedure date and begin time: See nurses notes. Procedure date and end time: See nurses notes. Performed by: Julisa Reeves DO. Assisted by: no social service assistant. Informed consent: signed by patient. Technique: Peripheral nerve blockade technique performed. Medications-Sedation: sedate with meaningful contact maintained.. Local Anesthesia: 1% lidocaine. Indication for Peripheral Nerve Block: post operative management of pain, at surgeon request. Preparation for Peripheral Nerve Block: The skin was prepped with chlorhexidine in the usual fashion. PERIPHERAL NERVE BLOCKADE Adductor Canal Block: right. sterile prep with chloraprep and drape. 22g 50mm peripheral nerve block needle placed perineural with ultrasound guidance. needle location confirmed. incremental injection. negative aspiration every 3cc. no paresthesia with injection. perineural spread continuously visualized with ultrasound. patient responsive and interactive throughout. Needle(s): 4 inches, 22 gauge. Injectate: ropivacaine (concentration 0.5 %, volume 10 mL). Narrative: paresthesia: none, blood aspirated none, pain on injection noted none, resistance on injection normal. Monitored during procedure: EKG, heart rate, heart rhythm, blood pressure (NIBP), pulse oximetry. Procedure tolerated: well. Complications: none. Procedure done in: holding area. Findings-Comments: none. Estimated Blood Loss: none. Specimen(s) obtained: none. Impression and Plan Diagnosis and Plan: Diagnosis Preoperative Diagnosis: Knee Pain OA Postoperative Diagnosis: Knee Pain OA . Normal [facility] Anesthesia Record Patient: ME VELASQUEZ HAAS Age: 57 years Sex: Female : 1960 Associated Diagnoses: None Author: Julisa Reeves DO Procedure Time Out [place] Protocol: patient identity verified, site verified, side verified, procedure to be done verified, patient position verified. REGIONAL ANESTHESIA PROCEDURE Procedure date and begin time: See nurses notes. Procedure date and end time: See nurses notes. Performed by: Julisa Reeves DO. Assisted by: no social service assistant. Informed consent: signed by patient. Technique: Peripheral nerve blockade technique performed. Medications-Sedation: sedate with meaningful contact maintained., midazolam 2 mg IV. Indication for Peripheral Nerve Block: post operative management of pain, at surgeon request. Preparation for Peripheral Nerve Block: The skin was prepped with chlorhexidine in the usual fashion. PERIPHERAL NERVE BLOCKADE Popliteal: right. sterile prep with chloraprep and drape. 22g 50mm peripheral nerve block needle placed perineural with ultrasound guidance. needle location confirmed. incremental injection. negative aspiration every 3cc. no paresthesia with injection. perineural spread continuously visualized with ultrasound. patient responsive and interactive throughout. Needle(s): 4 inches, 22 gauge. Injectate: ropivacaine (concentration 0.5 %, volume 30 mL). Narrative: paresthesia: none, blood aspirated none, pain on injection noted none, resistance on injection normal. Monitored during procedure: EKG, heart rate, heart rhythm, blood pressure (NIBP), pulse oximetry. Procedure tolerated: well. Complications: none. Procedure done in: holding area. Findings-Comments: none. Estimated Blood Loss: none. Specimen(s) obtained: none. Impression and Plan Diagnosis and Plan: Diagnosis Preoperative Diagnosis: Ankle OA Postoperative Diagnosis: . Course: Good response to treatment. Normal [facility] Basic Metabolic Panelon 11-02 BUN/Creatinine Ratio 19 mg/mg Normal [facility] Calcium 8.8 mg/dL Normal 8.5-10.6 [facility] Chloride 102 mmol/L Normal 98-107 [facility] CO2 29 mmol/L Normal 21-32 [facility] Creatinine 0.73 mg/dL Normal 0.55-1.02 [facility] Glucose mass conc 84 mg/dL Normal 74-106 [facility] Potassium molar conc 3.6 mmol/L Normal 3.5-5.1 [facility] Sodium 139 mmol/L Normal 136-145 [facility] Urea nitrogen 14 mg/dL Normal 7-18 [facility] Consultationon 11-28-2017 Consultation Patient: ME VELASQUEZ HAAS MRN: [id number] Age: 57 years Sex: Female : 1960 Associated Diagnoses: None Author: Mariana Gutierrez RN Impression Diagnosis Chronic osteoarthritis ([id number] M19.90, Working, Medical). Plan Supervising Physician Comments Documentation By: Consulting Physician. Chief Complaint Postop Medical Care s/p History of Present Illness 57 y/o female s/p right foot arthrodesis per Dr. Shelton who requests consult for postop medical management. Past Medical History Active Asthma CRPS (complex regional pain syndrome type I) - pain stimulator GERD (gastroesophageal reflux disease) Hypertension Mixed anxiety and depressive disorder FAY treated with BiPAP RLS (restless legs syndrome) Rheumatoid arthritis - dr. chow Urinary incontinence - bladder stimulator PrediabetesPeripheral vascular disease Surgical History RTKABreast reductionTummy tuckBladder pinning, 2003Surgical stimulation impants- left side for bladder, right for complex regional pain sydromeAnesthesia History Reactions (Self): Reactions (Family): Transfusion Reactions: Bleeding Tendencies: Health Status Allergies clonazePAM: Moderate, Memory loss ketamine: Moderate, Hallucinations Medication List (Selected) Inpatient MedicationsOrderedCeFAZolin : 3 Gm, 200 mL/hr, IVPB, Pre-ProcedureLactated Ringers 1,000 mL: 20 mL/hr, IV, Stop: 12/27/17 18:53:00 EDTlidocaine: 2 mg, IntraDermal, Pre-ProcedureSuspendedAlbut hunter Inh Sandrine: 2.5 mg, Nebul, Resp Q4h, PRN: WheezingAmLODIPine: 10 mg, PO, DailyCloNIDine: 0.1 mg, PO, Q6h, PRN: Blood Pressure - See Parameters in OrderCozaar: 100 mg, PO, DailyHydrodiuril: 12.5 mg, PO, DailyPaxil: 40 mg, PO, BedtimePlaquenil: 200 mg, PO, BIDSingulair: 10 mg, PO, Dailycyclobenzaprine: 10 mg, PO, Bedtimegabapentin: 300 mg, PO, 5x per daypantoprazole: 40 mg, PO, Dailypramipexole: 1.5 mg, PO, BIDDocumented MedicationsDocumentedLosart an/hydroCHLOROthiazide 100 mg/12.5 m Tab, PO, Daily, am, Each, 0 Refill(s)Mobic 7.5 mg oral tablet: 1 Tab, PO, BID, Each, 0 Refill(s)Paxil 40 mg oral tablet: 1 Tab, PO, Bedtime, Each, 0 Refill(s)Plaquenil 200 mg oral tablet: 1 Tab, PO, BID, Each, 0 Refill(s)Singulair 10 mg oral tablet: 1 Tab, PO, Daily, am, Each, 0 Refill(s)amLODipine 10 mg oral tablet: 1 Tab, PO, Daily, am, Each, 0 Refill(s)cyclobenzaprine: 10 mg, PO, Bedtime, Each, 0 Refill(s)gabapentin 300 mg oral capsule: 1 Cap, PO, 5x per day, Each, 0 Refill(s)omeprazole 20 mg oral enteric coated capsule: 1 Cap, PO, Daily, am, Each, 0 Refill(s)pramipexole 1.5 mg oral tablet: 1 Tab, PO, BID, 5:30 and 9:30, Each, 0 Refill(s)traMADol 50 mg oral tablet: 1 Tab, PO, QID, Each, 0 Refill(s) Social History Tobacco: Former smokerEtoh: Occ Social Habits History Social and Psychosocial WiypgvNhhrmxj93/27/2018 Use: Current Type: Beer, Wine Frequency: 1-2 times per monthHome/Bmgvjnxwudz41/27/ 2018 Lives with: Alone Living situation: Home/Independent Current Sensory Status glasses Home equipment: CPAP/BiPAPNutrition/Health (Ambulatory)11/27/2017 Home Diet: No restrictionsSubstance Abuse11/27/2017 Risk Assessment: Denies Substance Abuse Family History M- DM Review of Systems Review of Systems Constitutional: denies fever. Head/Neck: denies headache. Eye: denies eye pain. Ear/Nose/Mouth/Throat: denies sore throat. Neurologic: denies new focal weakness. Cardiovascular: denies chest pain. Respiratory: denies dyspnea. Gastrointestinal: denies abdominal pain. Genitourinary: denies incomplete emptyingSkin: denies rash. Physical Examination Last Charted Vital Signs No vital signs charted General - No Apparant DistressSkin - No Rash, Normal TurgorEyes - Pupils Equal, Conjunctiva ClearENT - Exteranal Ears Normal, Hearing NormalNeck - Trachea Midline, No TMGCardiovascular - RRR, No MGR, No Peripheral EdemaRespiratory - CTA, Normal Resp. EffortGI - Soft Nontender, + BS, No HSMMusculoskeletal - Dorsiflexion Intact, No Calf TendernessNeuro/Psych - A and Ox3, Appropiate Mood and Affect Objective Intake and Output (Previous 24Hrs) I and O Summary Begin date: 11/27 08:19 End date: 11/28 08:19 24 Hour Intake: 0.00 Output: 0.00 Balance: 0.00 Last BM: No BM Charted Results Review Labs: 10/16/2017WBC 6.5HGB 13.4PLT 248NA+ 142K+ 4.2CREAT 0.68GLUCOSE 106EK11/28/2016CXR: 09/25/2017, No acute cardiopulmonary process. Labs - Last 36 hours (Max 2 / lab test) CHEMISTRY So dium No result Potassium No result Chloride No result CO2 No result Glucose No result Glucose POCT No result BUN No result Creatinine No result Calcium Total No result Magnesium No result HEMATOLOGY W BC No result RBC No result Hb No result Hematocrit No result Platelets No result MCV No result MCH No result RDW No result MCHC No result Neutrophil Ab No result Monocyte Ab No result Eosinophil Ab No result Basophil Ab No result Lymphocyte Ab No result List of X-rays performed in last 36 hours XR Fluoro Less 1 Hour (Statistics)(NR): 11/28/17 06:12:28 See Radiology Report for More Detail Normal [facility] Consultation PDF Normal [facility] History and Physicalon 11-28 History and Physical Patient: Arturo HAAS MRN: ([id number] Age: 57 years Sex: Female : 1960 Associated Diagnoses: None Author: Efren BORDEN , Danny Coombs Impression Diagnosis Chronic osteoarthritis ([id number] M19.90, Working, Medical). Plan Right ankle pain: Status/post right foot/ankle arthrodesis by Dr. Shelton 11/28/17.Deep venous thrombosis prophylaxis: DVT prophylaxis is recommended as per 2012 ACCP guidelines. Defer ultimate decision to the primary service. Encourage lower extremity venous return exercises.Pain control: Short acting oral narcotics, as well as IV Dilaudid, have been ordered, to be adjusted as indicated. She was on Tramadol and Gabapentin for pain at home prior to surgery. She feels this will not hold her current pain.Chronic Pain Syndrome (G89.4) - chronic condition present on admission, patient may exhibit opiate tolerance, but was on Tramadol and Gabapentin only for pain preoperatively. Note made of stimulator placements.Asthma (J45.909) - chronic condition present on admission. Currently without acute exacerbation, patient will require close monitoring of respiratory status perioperatively including use of continuous pulse oximetry. Med nebs with albuterol/Atrovent have been ordered when necessary. Chronic prescription home medications have been reordered.Gastroesophageal Reflux Disease (K21.9) - chronic condition present on admission, controlled with proton pump inhibitor which has been reordered.Hypertension (I10) -chronic condition present on admission. Patient's home prescription antihypertensive medicines have been ordered. As needed clonidine has been added.Anxiety Disorder (F41.9)- chronic and present on admission, controlled with home prescription medications which have been reordered.Depression (F32.9) - chronic condition present on admission, controlled with home medications which have been reordered.Obstructive Sleep Apnea (G47.33) - chronic condition present on admission. Patient will be at risk for postoperative respiratory complications and will require monitoring on the [facility] protocol. She has her home BiPAP at the hospital for use while sleeping. She reports she uses 2 LPM of oxygen every night through her BiPAP.Restless Leg Syndrome (G25.81) - chronic condition present on admission. Patient's home prescription medications have been reordered. Rheumatoid Arthritis (M06.9) - chronic condition present on admission. Patient had a short taper of oral steroids in August 2017 due to acute bronchitis, but is not on chronic steroids. Her Plaquenil was recently started and has been reordered postoperatively. She was given no special instructions regarding its perioperative or postoperative usage.History of urinary incontinence: Status/post bladder stimulator placement. Monitor PVRs and U.O. postoperatively.Pre-diabete s (R73.09) -chronic condition present on admission. May be exacerbated post procedure due to pain, immobility, and corticosteroid exposure. Patient will be followed with [id number] glucose and sliding scale insulin if needed. Supervising Physician Comments Documentation By: Consulting Physician. Chief Complaint Postoperative medical management. History of Present Illness 57 y/o female s/p right foot arthrodesis per Dr. Shelton who requests consult for postop medical management. The patient has had longstanding instability and pain in her right ankle of many years duration. She underwent right ankle reconstructive surgery in the . Over the past several years her chronic right ankle pain progressively worsened, becoming sharp, severe, and refractory to conservative, non-surgical measures. She is now postop in the [facility] PAC[facility] following right ankle surgery with Dr. Shelton. Medical consultation was requested. Past Medical History Active Asthma CRPS (complex regional pain syndrome type I) - pain stimulator GERD (gastroesophageal reflux disease) Hypertension Mixed anxiety and depressive disorder FAY treated with BiPAP RLS (restless legs syndrome) Rheumatoid arthritis - dr. chow Urinary incontinence - bladder stimulator PrediabetesPeripheral vascular disease Surgical History RTKABreast reductionTummy tuckBladder pinning, 2003Surgical stimulation impants- left side for bladder, right for complex regional pain sydromeRight ankle reconstructive surgery Anesthesia History Reactions (Self): Denied Reactions (Family):Denied Transfusion Reactions:Denied Bleeding Tendencies: Denied Surgical/Procedure Hx Gastrocnemius recession ([id number]) on 11/28/2017 at 57 Years.Comments:11/28/2017 16:22 - Rae VILLEDA , Iris LRIGHT ANKLE GASTROC RECESSION Health Status Allergies clonazePAM: Moderate, Memory loss ketamine: Moderate, Hallucinations Medication List (Selected) Inpatient MedicationsOrderedAlbuterol Inh Sandrine: 2.5 mg, Nebul, Resp Q4h, PRN: WheezingAmLODIPine: 10 mg, PO, DailyApresoline Inj*: 5 mg, IV Push, Once, PRN: See CommentsBenadryl: 25 mg, PO, Q4h, PRN: Itching/PruritusBethanechol Oral: 25 mg, PO, Q8h, PRN: See CommentsCloNIDine: 0.1 mg, PO, Q6h, PRN: Blood Pressure - See Parameters in OrderCozaar: 100 mg, PO, DailyDemerol Inj*: 12.5 mg, IV Push, PRN, PRN: See CommentsDextrose 50% Syringe*: 12.5 Gm, IV Push, PRN, PRN: See CommentsDilaudid Inj*: 0.5 mg, IV Push, Q10min, PRN: Pain - SevereDilaudid Inj: 0.5 mg, IV Push, Q2h, PRN: Pain - BreakthroughDulcolax: 10 mg, Rectal, BID, PRN: ConstipationFlexeril: 10 mg, PO, Q8h, PRN: Muscle SpasmsGlucagon: 1 mg, Subcut, PRN, PRN: See CommentsHydrodiuril: 12.5 mg, PO, DailyLabetalol (Trandate/Normodyne)*: 5 mg, IV Push, PRN, PRN: See CommentsLactated Ringers 1,000 mL: 20 mL/hr, IV, Stop: 12/27/17 18:53:00 EDTMilk of Magnesia 8%: 30 mL, PO, Daily, PRN: ConstipationMylanta: 30 mL, PO, QID, PRN: Indigestion/HeartburnNovoLO G Sliding Scale*: Conservative Scale, Subcut, ac+bedtimePaxil: 40 mg, PO, BedtimePercocet 5 mg/325 mg*: 1 Tab, PO, Q4h, PRN: Pain - ModeratePlaquenil: 200 mg, PO, BIDSenna S: 1 Tab, PO, BIDSingulair: 10 mg, PO, DailySublimaze: 50 mcg, IV Push, Q5min, PRN: Pain - SevereTraZODone: 50 mg, PO, Bedtime, PRN: Insomnia/SleepTylenol: 650 mg, PO, Q4h, PRN: Pain-Mild/Fever greater than 100.4 (38C)Zofran Inj*: 4 mg, IV Push, Q6h, PRN: See CommentsZofran Inj: 4 mg, IV Push, Q6h, PRN: Nausea/Vomitingaspirin: 325 mg, PO, BIDcyclobenzaprine: 10 mg, PO, Bedtimegabapentin: 300 mg, PO, 5x per daylidocaine: 2 mg, IntraDermal, Pre-Procedurenaloxone: 0.4 mg, IV, PRN, PRN: See Commentsoxygen: 1 Each, Inhalation, Dailyoxygen: 1 Each, Inhalation, Dailyoxygen: 1 Each, Inhalation, Dailyoxygen: 1 Each, Inhalation, Dailypantoprazole: 40 mg, PO, Dailypramipexole: 1.5 mg, PO, BIDpromethazine: 25 mg, PO, Q4h, PRN: Nausea/Vomitingpromethazine : 25 mg, Rectal, Q4h, PRN: Nausea/VomitingDocumented MedicationsDocumentedLosart an/hydroCHLOROthiazide 100 mg/12.5 m Tab, PO, Daily, am, Each, 0 Refill(s)Mobic 7.5 mg oral tablet: 1 Tab, PO, BID, Each, 0 Refill(s)Paxil 40 mg oral tablet: 1 Tab, PO, Bedtime, Each, 0 Refill(s)Plaquenil 200 mg oral tablet: 1 Tab, PO, BID, Each, 0 Refill(s)Singulair 10 mg oral tablet: 1 Tab, PO, Daily, am, Each, 0 Refill(s)amLODipine 10 mg oral tablet: 1 Tab, PO, Daily, am, Each, 0 Refill(s)cyclobenzaprine: 10 mg, PO, Bedtime, Each, 0 Refill(s)gabapentin 300 mg oral capsule: 1 Cap, PO, 5x per day, Each, 0 Refill(s)omeprazole 20 mg oral enteric coated capsule: 1 Cap, PO, Daily, am, Each, 0 Refill(s)pramipexole 1.5 mg oral tablet: 1 Tab, PO, BID, 5:30 and 9:30, Each, 0 Refill(s)traMADol 50 mg oral tablet: 1 Tab, PO, QID, Each, 0 Refill(s) Social History Tobacco: Former smokerEtoh: Occ Social Habits History Social and Psychosocial RjzkyuPipzzgx91/27/2018 Use: Current Type: Beer, Wine Frequency: 1-2 times per monthHome/Nzqtnipxmcx93/27/ 2018 Lives with: Alone Living situation: Home/Independent Current Sensory Status glasses Home equipment: CPAP/BiPAPNutrition/Health (Ambulatory)11/27/2017 Home Diet: No restrictionsSubstance Abuse11/27/2017 Risk Assessment: Denies Substance Abuse Family History M- DM Review of Systems Constitutional: Denies fever Head/Neck: Denies headache or neck stiffnessEye: Denies ocular pain or visual changes Ear/Nose/Mouth/Throat: Denies sore throat Neurologic: Denies new focal weakness or changes in sensation Cardiovascular: Denies chest pain, pressure, or palpitations Respiratory: Denies dyspnea or cough Gastrointestinal: Denies abdominal pain, nausea, or dyspepsia Genitourinary: Denies incomplete voiding/emptyingSkin: Denies rash Physical Examination Last Charted Vital Signs Temperature: 36 (11/28 17:45) Pulse: 73 (11/28 14:15) Respiration: 16 (11/28 14:15) BP: 140/88 (11/28 14:15) Pulse Ox: 95 (11/28 14:15) Oxygen Delivery: Not Charted O2 Device Flow: Pain Score: 9 (11/28 14:20) General appearance: Awake; mild to moderate right ankle pain; conversant in the PACUSkin: Normal turgor; no rashesEyes: Pupils equal bilaterally; anicteric scleraENMT: Hearing intact; oropharynx clear with moist mucosaNeck: Trachea midline; no goiterCardiovascular: Regular rate and ryhthm; no peripheral edema notedRespiratory: Clear to auscultation bilaterally; no accessory muscle use notedGastrointestinal: Soft; non-tender; no hepatosplenomegalyMusculosk eletal: No calf tenderness on the left, right lower extremity wrapped; no clubbing or cyanosis of digits notedPsychiatric: Alert and oriented x 3; appropriate affect Results Review Labs: 10/16/2017WBC 6.5HGB 13.4PLT 248NA+ 142K+ 4.2CREAT 0.68GLUCOSE 106EK11/28/2016CXR: 09/25/2017, No acute cardiopulmonary process. Labs - Last 36 hours (Max 2 / lab test) CHEMISTRY So dium 139 (11/28 14:20) Potassium 3.6 (11/28 14:20) Chloride 102 (11/28 14:20) CO2 29 (11/28 14:20) Glucose 84 (11/28 14:20) Glucose POCT No result BUN 14 (11/28 14:20) Creatinine 0.73 (11/28 14:20) Calcium Total 8.8 (11/28 14:20) Magnesium No result HEMATOLOGY W BC No result RBC No result Hb No result Hematocrit No result Platelets No result MCV No result MCH No result RDW No result MCHC No result Neutrophil Ab No result Monocyte Ab No result Eosinophil Ab No result Basophil Ab No result Lymphocyte Ab No result OTHER LABS ___Est CrCl IBW (mL/min)-RX 81.48 mL/min (11/28 14:20) Est CrCl AdjBW (mL/min)-R 124.47 mL/min (11/28 14:20) BUN / Creatinine Ratio 19 (11/28 14:20) List of X-rays performed in last 36 hours XR C-Spine 2 or 3 Views: 11/28/17 12:28:19 See Radiology Report for More Detail XR Fluoro Less 1 Hour (Statistics)(NR): 11/28/17 06:12: See Radiology Report for More Detail Normal [facility] History and Physical PDF Normal [facility] PACU I Nursingon 11-28-2017 Cholesterol CO NA PACU I Nursing Record Summary Primary Physician: Rigo Shelton DO Finalized Date/Time: 11/28/17 20:42:00 Pt. Name: SIOBHAN HAAS/Sex: 1960 Female Med Rec #: [id number] Physician: Financial #: [id number] Pt. Type: A Room/Bed: / Admit/Disch: 11/28/17 12:09:00 - Institution: [facility] OR Main PACU I Case Times Entry 1 In PACU I 11/28/17 18:13:00 Ready for PACU I 11/28/17 20:00:00 Discharge Discharge from PACU 11/28/17 20:30:00 PACU I Discharge Receiving Unit - RN I Delay Reason unavail for report Last Modified By: Iliana Hurtado RNh 11/28/17 20:41:42 CO NA OR Main PACU I Case Attendees Entry 1 Case Attendee Carissa Hurtado RN Role Performed RN Last Modified By: Carissa Hurtado RN 11/28/17 20:41:59 Finalized By: Carissa Hurtado RN Document Signatures Signed By: Carissa Hurtado RN 11/28/17 20:42 Normal [facility] XR C-Spine 2 or 3 Viewson XR C-Spine 2 or 3 Views EXAM: XR C-Spine 2 or 3 Views DATE: 11/28/2017 12:28 PMCOMPARISON: None INDICATION: History rheumatoid arthritis, preoperative evaluation. FINDINGS: Neutral, flexion, and extension lateral views of the cervical spine were obtained. There is normal alignment of the cervical spine throughout range of motion. Vertebral body heights are maintained. Intervertebral disc spaces are preserved. Prevertebral soft tissues are within normal limits.IMPRESSION: Negative for radiographic motion.[facility] thanks you for the opportunity to care for your patient. Workstation ID: [id number] FINAL REPORT Dictated By: Manjit Woodruff MD 11/28/2017 12:30Assigned Physician: Manjit Woodruff MDReviewed and Electronically Signed By: Manjit Woodruff MD 11/28/2017 12:30Transcribed by: MIGUEL 11/28/2017 12:30Technologist: [facility] Normal [facility] Bacteria identified Cx Nom ( Wound) Wound Culture Streptococcus group A [facility] Work Phone: Wound Culture Staphylococcus aureus [facility] Work Phone: Bacteria identified Respirat ory culture Nom (Unsp spec) Respiratory Culture Staphylococcus aureus [facility] Work Phone: Culture, urine Bacteria identified Cx Nom (U) Culture exhibits no growth. [facility] Work Phone: Gram stain for investigation of transfusion reaction Microscopic observation Gram stain Nom (Unsp spec) [facility] Work Phone: Influenza virus A and B and SARS-CoV-2 (COVID-19) Ag panel - Upper respiratory specim SARS-CoV-2 (COVID-19) RNA NICHOLE+probe Ql (Resp) [facility] Work Phone: Laboratory - Microbiology an d Antimicrobial susceptibility Bacteria identified Cx Nom (Bld) No growth in 5 days. [facility] Work Phone: Vital Signs Date Time Vital Sign Value Performing Clinician Facility 05-16-2025 09:42-0400 Body temperature 98 [degF] Dr. Louis Penn MD Work Phone: [facility] 05-16-2025 09:42-0400 Diastolic blood pressure 81 mm[Hg] Dr. Louis Penn MD Work Phone: [facility] 05-16-2025 09:42-0400 Heart rate 72 /min Dr. Louis Penn MD Work Phone: [facility] 05-16-2025 09:42-0400 Respiratory rate 16 /min Dr. Louis Penn MD Work Phone: [facility] 05-16-2025 09:42-0400 SaO2% (BldA) [Mass fraction] 97 % Dr. Louis Penn MD Work Phone: [facility] 05-16-2025 09:42-0400 Systolic blood pressure 128 mm[Hg] Dr. Louis Penn MD Work Phone: [facility] 05-16-2025 05:39-0400 Body height 167.[address] Louis Penn MD Work Phone: [facility] 05-16-2025 05:39-0400 Body mass index (BMI) [Ratio] 56.8 kg/m2 Dr. Louis Penn MD Work Phone: [facility] 05-16-2025 05:39-0400 Body weight 159.[address] Louis Penn MD Work Phone: [facility] 05-14-2025 10:14-0400 Body temperature 96.8 [degF] Renee [address] 05-14-2025 10:14-0400 Diastolic blood pressure 79 mm[Hg] [address] 05-14-2025 10:14-0400 Heart rate 72 /min [address] 05-14-2025 10:14-0400 Respiratory rate 18 /min [address] 05-14-2025 10:14-0400 SaO2% (BldA) [Mass fraction] 97 % [address] 05-14-2025 10:14-0400 Systolic blood pressure 134 mm[Hg] [address] 05-07-2025 13:16-0400 Body height 139.7 cm Loly Ortiz MD Work Phone: [facility] 05-07-2025 13:16-0400 Body mass index (BMI) [Ratio] 76.23 kg/m2 Loly Ortiz MD Work Phone: [facility] 05-07-2025 13:16-0400 Body temperature 97.2 [degF] Loly Ortiz MD Work Phone: [facility] 05-07-2025 13:16-0400 Body weight 148.78 kg Loly Ortiz MD Work Phone: [facility] 05-07-2025 13:16-0400 Diastolic blood pressure 68 mm[Hg] Loly Ortiz MD Work Phone: [facility] 05-07-2025 13:16-0400 Heart rate 80 /min Loly Ortiz MD Work Phone: [facility] 05-07-2025 13:16-0400 Respiratory rate 18 /min Loly Ortiz MD Work Phone: [facility] 05-07-2025 13:16-0400 SaO2% (BldA) [Mass fraction] 96 % Loly Ortiz MD Work Phone: [facility] 05-07-2025 13:16-0400 Systolic blood pressure 122 mm[Hg] Loly Ortiz MD Work Phone: [facility] 01-27-2025 07:57-0400 Body mass index (BMI) [Ratio] 54.5 kg/m2 Dr. Louis Penn MD Work Phone: [facility] 01-27-2025 07:57-0400 Body temperature 97.4 [degF] Dr. Louis Penn MD Work Phone: [facility] 01-27-2025 07:57-0400 Body weight 153.[address] Louis Penn MD Work Phone: [facility] 01-27-2025 07:57-0400 Diastolic blood pressure 80 mm[Hg] Dr. Louis Penn MD Work Phone: [facility] 01-27-2025 07:57-0400 Heart rate 72 /min Dr. Louis Penn MD Work Phone: [facility] 01-27-2025 07:57-0400 Respiratory rate 18 /min Dr. Louis Penn MD Work Phone: [facility] 01-27-2025 07:57-0400 SaO2% (BldA) [Mass fraction] 91 % Dr. Louis Penn MD Work Phone: [facility] 01-27-2025 07:57-0400 Systolic blood pressure 113 mm[Hg] Dr. Louis Penn MD Work Phone: [facility] 01-17-2025 11:39-0400 Body temperature 97.8 [degF] Dr. Louis Penn MD Work Phone: [facility] 01-17-2025 11:39-0400 Diastolic blood pressure 73 mm[Hg] Dr. Louis Penn MD Work Phone: [facility] 01-17-2025 11:39-0400 Heart rate 66 /min Dr. Louis Penn MD Work Phone: [facility] 01-17-2025 11:39-0400 Respiratory rate 16 /min Dr. Louis Penn MD Work Phone: [facility] 01-17-2025 11:39-0400 SaO2% (BldA) [Mass fraction] 91 % Dr. Louis Penn MD Work Phone: 7(183)267-085582 [place] [address] 01-17-2025 11:39-0400 Systolic blood pressure 95 mm[Hg] Dr. Louis Penn MD Work Phone: 9(744)642-723155 [place] [address] 01-17-2025 06:58-0400 Inhaled oxygen flow rate 6 L/min Dr. Louis Penn MD Work Phone: 2(739)589-013655 [place] [address] 01-17-2025 01:51-0400 Inhaled oxygen concentration 40 % Dr. Louis Penn MD Work Phone: 9(077)812-979655 [place] [address] 01-15-2025 10:45-0400 Body height 167.[address] Louis Penn MD Work Phone: 2(590)710-866955 [place] [address] 01-15-2025 10:45-0400 Body weight 158.[address] Louis Penn MD Work Phone: 6(152)636-512655 [place] [address] 01-14-2025 12:59-0400 Body height 139.[address] Louis Penn MD Work Phone: 4(360)424-611355 [place] [address] 01-14-2025 12:59-0400 Body mass index (BMI) [Ratio] 81 kg/m2 Dr. Louis Penn MD Work Phone: 9(316)615-056955 [place] [address] 01-14-2025 12:59-0400 Body weight 158.[address] Louis Penn MD Work Phone: 1(647)107-253855 [place] [address] 01-14-2025 12:55-0400 Heart rate 106 /min Dr. Louis Penn MD Work Phone: 6(348)389-406282 [place] [address] 01-14-2025 12:55-0400 Inhaled oxygen concentration 40 % Dr. Louis Penn MD Work Phone: 1(502)273-921282 [place] [address] 01-14-2025 12:55-0400 Respiratory rate 18 /min Dr. Louis Penn MD Work Phone: 7(114)674-743482 [place] [address] 01-14-2025 12:55-0400 SaO2% (BldA) [Mass fraction] 95 % Dr. Louis Penn MD Work Phone: [facility] 01-14-2025 12:00-0400 Diastolic blood pressure 83 mm[Hg] Dr. Louis Penn MD Work Phone: [facility] 01-14-2025 12:00-0400 Systolic blood pressure 123 mm[Hg] Dr. Louis Penn MD Work Phone: [facility] 01-14-2025 11:56-0400 Body temperature 101 [degF] Dr. Louis Penn MD Work Phone: [facility] 12-19-2024 13:20-0400 Diastolic blood pressure 80 mm[Hg] Dr. Louis Penn MD Work Phone: [facility] 12-19-2024 13:20-0400 Heart rate 82 /min Dr. Louis Penn MD Work Phone: [facility] 12-19-2024 13:20-0400 Respiratory rate 18 /min Dr. Louis Penn MD Work Phone: [facility] 12-19-2024 13:20-0400 SaO2% (BldA) [Mass fraction] 90 % Dr. Louis Penn MD Work Phone: [facility] 12-19-2024 13:20-0400 Systolic blood pressure 136 mm[Hg] Dr. Louis Penn MD Work Phone: [facility] 01-02-2024 13:02-0400 Body mass index (BMI) [Ratio] 52.94 kg/m2 Jani Morales MD Work Phone: [facility] 01-02-2024 13:02-0400 Body weight 153.32 kg Jani Morales MD Work Phone: [facility] 01-02-2024 13:02-0400 Diastolic blood pressure 74 mm[Hg] Jani Morales MD Work Phone: [facility] 01-02-2024 13:02-0400 Heart rate 74 /min Jani Morales MD Work Phone: [facility] 01-02-2024 13:02-0400 Systolic blood pressure 134 mm[Hg] Jani Morales MD Work Phone: [facility] 12-26-2023 13:14-0400 Body height 170.2 cm Jani Morales MD Work Phone: [facility] 12-26-2023 13:14-0400 Body mass index (BMI) [Ratio] 52.94 kg/m2 Jani Morales MD Work Phone: [facility] 12-26-2023 13:14-0400 Body weight 153.32 kg Jani Morales MD Work Phone: [facility] 12-05-2023 09:38-0500 Body height 170.2 cm Ludwin Titus MD Work Phone: [facility] Comment on above: patient has since had bilat LE amputatio n 12-05-2023 09:38-0500 Body mass index (BMI) [Ratio] 52.94 kg/m2 Ludwin Titus MD Work Phone: [facility] 12-05-2023 09:38-0500 Body weight 153.32 kg Ludwin Titus MD Work Phone: [facility] 12-05-2023 09:38-0500 Diastolic blood pressure 84 mm[Hg] Ludwin Titus MD Work Phone: [facility] 12-05-2023 09:38-0500 Systolic blood pressure 130 mm[Hg] Ludwin Titus MD Work Phone: [facility] 10-12-2023 15:21-0500 Diastolic blood pressure 63 mm[Hg] Bj Barroso MD Work Phone: [facility] 10-12-2023 15:21-0500 Heart rate 80 /min Bj Barroso MD Work Phone: [facility] 10-12-2023 15:21-0500 Systolic blood pressure 90 mm[Hg] Bj Barroso MD Work Phone: [facility] 10-12-2023 14:49-0500 Body height 170.2 cm Bj Barroso MD Work Phone: [facility] 10-12-2023 14:49-0500 Body mass index (BMI) [Ratio] 52.94 kg/m2 Bj Barroso MD Work Phone: [facility] 10-12-2023 14:49-0500 Body weight 153.32 kg Bj Barroso MD Work Phone: [facility] 07-23-2023 14:23-0400 Body temperature 98.2 [degF] [employer] Oj Maddox [employer] Work Phone: [facility] 07-23-2023 14:23-0400 Diastolic blood pressure 78 mm[Hg] [employer] Oj Maddox [employer] Work Phone: [facility] 07-23-2023 14:23-0400 Heart rate 73 /min [employer] Oj Maddox [employer]PA[employer]ER Work Phone: [facility] 07-23-2023 14:23-0400 Respiratory rate 18 /min [employer] Oj Maddox [employer]PA[employer] Work Phone: [facility] 07-23-2023 14:23-0400 SaO2% (BldA) [Mass fraction] 97 % [employer] Oj Maddox [employer] REPA[employer]ER Work Phone: [facility] 07-23-2023 14:23-0400 Systolic blood pressure 134 mm[Hg] [employer] Oj Maddox [employer] REPAIRER Work Phone: [facility] 07-21-2023 10:35-0400 Body height 167.64 cm [employer] Oj Maddox [employer] REPA[employer]ER Work Phone: [facility] 07-21-2023 10:35-0400 Body weight 153.2 kg [employer] Oj Maddox [employer]PA[employer]ER Work Phone: [facility] 07-21-2023 00:12-0400 Body mass index (BMI) [Ratio] 54.5 kg/m2 [employer] Oj Maddox [employer] REPA[employer]ER Work Phone: [facility] 07-20-2023 21:46-0400 Body temperature 98.3 [degF] [employer] Oj Maddox [employer] REPA[employer]ER Work Phone: [facility] 07-20-2023 21:46-0400 Diastolic blood pressure 76 mm[Hg] [employer] Oj Maddox [employer] REPA[employer]ER Work Phone: [facility] 07-20-2023 21:46-0400 Heart rate 82 /min [employer] Oj [employer]anc[employer]PA[employer]ER Work Phone: [facility] 07-20-2023 21:46-0400 Respiratory rate 18 /min [employer] Oj Maddox [employer] REPAIRER Work Phone: [facility] 07-20-2023 21:46-0400 SaO2% (BldA) [Mass fraction] 94 % [employer] Oj Maddox [employer] REPAIRER Work Phone: [facility] 07-20-2023 21:46-0400 Systolic blood pressure 115 mm[Hg] [employer] Oj Maddox [employer] REPAIRER Work Phone: [facility] 07-20-2023 16:38-0400 Body height 167.64 cm [employer] Oj Maddox [employer] REPAIRER Work Phone: [facility] 07-20-2023 16:38-0400 Body mass index (BMI) [Ratio] 25.8 kg/m2 [employer] Oj Maddox [employer] REPA[employer]ER Work Phone: [facility] 07-20-2023 16:38-0400 Body weight 72.66 kg [employer] Oj Manc[employer] REPA[employer]ER Work Phone: [facility] 07-11-2023 10:20-0400 Body height 170.2 cm Cristian Maxwell DO Work Phone: [facility] 07-11-2023 10:20-0400 Body mass index (BMI) [Ratio] 52.28 kg/m2 Cristian Hans DO Work Phone: [facility] 07-11-2023 10:20-0400 Body temperature 97.3 [degF] Cristian Martinezian DO Work Phone: [facility] 07-11-2023 10:20-0400 Body weight 151.41 kg Cristian Martinezian DO Work Phone: [facility] 07-11-2023 10:20-0400 Diastolic blood pressure 78 mm[Hg] Cristian Martinezian DO Work Phone: [facility] 07-11-2023 10:20-0400 Heart rate 87 /min Cristian Martinezian DO Work Phone: [facility] 07-11-2023 10:20-0400 SaO2% (BldA) [Mass fraction] 96 % Cristian Maxwell DO Work Phone: [facility] 07-11-2023 10:20-0400 Systolic blood pressure 130 mm[Hg] Cristian Maxwell DO Work Phone: [facility] 07-09-2023 14:26-0400 Body height 170.2 cm [employer] Work Phone: [facility] 07-09-2023 14:26-0400 Body mass index (BMI) [Ratio] 52.47 kg/m2 [employer] PA Work Phone: [facility] 07-09-2023 14:26-0400 Body weight 151.96 kg [employer] Work Phone: [facility] 06-08-2023 07:43-0400 Body temperature 96.3 [degF] Rusty Mercado MD Work Phone: [facility] 06-08-2023 07:43-0400 Diastolic blood pressure 88 mm[Hg] Rusty Mercado MD Work Phone: [facility] 06-08-2023 07:43-0400 Heart rate 73 /min Rusty Mercado MD Work Phone: [facility] 06-08-2023 07:43-0400 Respiratory rate 18 /min Rusty Mercado MD Work Phone: [facility] 06-08-2023 07:43-0400 SaO2% (BldA) [Mass fraction] 96 % Rusty Mercado MD Work Phone: [facility] 06-08-2023 07:43-0400 Systolic blood pressure 135 mm[Hg] Rusty Mercado MD Work Phone: [facility] 06-05-2023 13:11-0400 Body mass index (BMI) [Ratio] 50.11 kg/m2 Rusty Mercado MD Work Phone: [facility] 06-05-2023 13:11-0400 Body weight 145.15 kg Rusty Mercado MD Work Phone: [facility] 05-30-2023 08:17-0400 Body height 170.2 cm Rusty Mercado MD Work Phone: [facility] 05-22-2023 14:45-0400 Diastolic blood pressure 80 mm[Hg] Rusty Mercado MD Work Phone: [facility] 05-22-2023 14:45-0400 Heart rate 83 /min Rusty Mercado MD Work Phone: [facility] 05-22-2023 14:45-0400 Respiratory rate 12 /min Rusty Mercado MD Work Phone: [facility] 05-22-2023 14:45-0400 SaO2% (BldA) [Mass fraction] 97 % Rusty Mercado MD Work Phone: [facility] 05-22-2023 14:45-0400 Systolic blood pressure 116 mm[Hg] Rusty Mercado MD Work Phone: [facility] 05-22-2023 13:05-0400 Body temperature 97.39 [degF] Rusty Mercado MD Work Phone: [facility] 05-18-2023 14:35-0400 Body height 170.2 cm Jennifer Kaehler PA Work Phone: [facility] 05-18-2023 14:35-0400 Body mass index (BMI) [Ratio] 50.12 kg/m2 Jennifer Jackson PA Work Phone: [facility] 05-18-2023 14:35-0400 Body weight 145.15 kg Jennifer Jackson PA Work Phone: [facility] 05-11-2023 14:09-0400 Body temperature 97.81 [degF] Jennifer Jackson PA Work Phone: [facility] 05-11-2023 14:09-0400 Diastolic blood pressure 88 mm[Hg] Jennifer Jackson PA Work Phone: [facility] 05-11-2023 14:09-0400 Heart rate 88 /min Jennifer Jackson PA Work Phone: [facility] 05-11-2023 14:09-0400 Systolic blood pressure 148 mm[Hg] Jennifer Jackson PA Work Phone: [facility] 05-08-2023 16:15-0400 Body temperature 97.3 [degF] Rusty Mercado MD Work Phone: [facility] 05-08-2023 16:15-0400 Diastolic blood pressure 73 mm[Hg] Rusty Mercado MD Work Phone: [facility] 05-08-2023 16:15-0400 Heart rate 81 /min Rusty Mercado MD Work Phone: [facility] 05-08-2023 16:15-0400 Respiratory rate 14 /min Rusty Mercado MD Work Phone: [facility] 05-08-2023 16:15-0400 SaO2% (BldA) [Mass fraction] 95 % Rusty Mercado MD Work Phone: [facility] 05-08-2023 16:15-0400 Systolic blood pressure 123 mm[Hg] Rusty Mercado MD Work Phone: [facility] 05-08-2023 09:16-0400 Body mass index (BMI) [Ratio] 50.12 kg/m2 Rusty Mercado MD Work Phone: [facility] 05-08-2023 09:16-0400 Body weight 145.15 kg Rusty Mercado MD Work Phone: [facility] 05-07-2023 13:49-0400 Body height 170.2 cm Rusty Mercado MD Work Phone: [facility] 05-07-2023 13:49-0400 Body mass index (BMI) [Ratio] 50.12 kg/m2 Rusty Mercado MD Work Phone: [facility] 05-07-2023 13:49-0400 Body weight 145.15 kg Rusty Mercado MD Work Phone: [facility] 05-07-2023 13:49-0400 Diastolic blood pressure 101 mm[Hg] Rusty Mercado MD Work Phone: [facility] 05-07-2023 13:49-0400 Heart rate 101 /min Rusty Mercado MD Work Phone: [facility] 05-07-2023 13:49-0400 Systolic blood pressure 169 mm[Hg] Rusty Mercado MD Work Phone: [facility] 02-22-2023 13:15-0400 Diastolic blood pressure 72 mm[Hg] Fabrizio Leung MD Work Phone: [facility] 02-22-2023 13:15-0400 Heart rate 76 /min Fabrizio Leung MD Work Phone: [facility] 02-22-2023 13:15-0400 SaO2% (BldA) [Mass fraction] 94 % Fabrizio Leung MD Work Phone: [facility] 02-22-2023 13:15-0400 Systolic blood pressure 126 mm[Hg] Fabrizio Leung MD Work Phone: [facility] 02-22-2023 13:00-0400 Respiratory rate 18 /min Fabrizio Leung MD Work Phone: [facility] 02-22-2023 08:45-0400 Body height 170.2 cm Fabrizio Leung MD Work Phone: [facility] 02-22-2023 08:45-0400 Body mass index (BMI) [Ratio] 50.12 kg/m2 Fabrizio Leung MD Work Phone: [facility] 02-22-2023 08:45-0400 Body temperature 7 [degF] Fabrizio Leung MD Work Phone: [facility] 02-22-2023 08:45-0400 Body weight 145.15 kg Fabrizio Leung MD Work Phone: [facility] 02-12-2023 15:22-0400 Body height 170.2 cm Rusty Mercado MD Work Phone: [facility] 02-12-2023 15:22-0400 Body mass index (BMI) [Ratio] 53.09 kg/m2 Rusty Mercado MD Work Phone: [facility] 02-12-2023 15:22-0400 Body weight 153.77 kg Rusty Mercado MD Work Phone: [facility] 02-12-2023 13:55-0400 Body height 170.2 cm Jani Morales MD Work Phone: [facility] 02-12-2023 13:55-0400 Body mass index (BMI) [Ratio] 53.09 kg/m2 Jani Morales MD Work Phone: [facility] 02-12-2023 13:55-0400 Body temperature 98.01 [degF] Jani Morales MD Work Phone: [facility] 02-12-2023 13:55-0400 Body weight 153.77 kg Jani Morales MD Work Phone: [facility] 01-30-2023 10:47-0400 Body height 170.2 cm Jani Morales MD Work Phone: [facility] 01-30-2023 10:47-0400 Body mass index (BMI) [Ratio] 53.09 kg/m2 Jani Morales MD Work Phone: [facility] 01-30-2023 10:47-0400 Body temperature 97.59 [degF] Jani Morales MD Work Phone: [facility] 01-30-2023 10:47-0400 Body weight 153.77 kg Jani Morales MD Work Phone: [facility] 01-15-2023 10:10-0400 Body height 170.2 cm Jani Morales MD Work Phone: [facility] 01-15-2023 10:10-0400 Body mass index (BMI) [Ratio] 53.17 kg/m2 Jani Morales MD Work Phone: [facility] 01-15-2023 10:10-0400 Body temperature 97.81 [degF] Jani Morales MD Work Phone: [facility] 01-15-2023 10:10-0400 Body weight 154 kg Jani Morales MD Work Phone: [facility] 01-15-2023 09:32-0400 Body height 170.2 cm Rusty Mercado MD Work Phone: [facility] 01-15-2023 09:32-0400 Body mass index (BMI) [Ratio] 53.09 kg/m2 Rusty Mercado MD Work Phone: [facility] 01-15-2023 09:32-0400 Body temperature 97.39 [degF] Rusty Mercado MD Work Phone: [facility] 01-15-2023 09:32-0400 Body weight 153.77 kg Rusty Mercado MD Work Phone: [facility] 01-15-2023 09:32-0400 Diastolic blood pressure 91 mm[Hg] Rusty Mercado MD Work Phone: [facility] 01-15-2023 09:32-0400 Heart rate 105 /min Rusty Mercado MD Work Phone: [facility] 01-15-2023 09:32-0400 Systolic blood pressure 148 mm[Hg] Rusty Mercado MD Work Phone: [facility] 01-12-2023 15:41-0400 Diastolic blood pressure 82 mm[Hg] Fabrizio Leung MD Work Phone: [facility] 01-12-2023 15:41-0400 Heart rate 111 /min Fabrizio Leung MD Work Phone: [facility] 01-12-2023 15:41-0400 Systolic blood pressure 123 mm[Hg] Fabrizio Leung MD Work Phone: [facility] 12-20-2022 14:03-0400 Body height 170.2 cm Jani Morales MD Work Phone: [facility] 12-20-2022 14:03-0400 Body mass index (BMI) [Ratio] 53.17 kg/m2 Jani Morales MD Work Phone: [facility] 12-20-2022 14:03-0400 Body temperature 97 [degF] Jani Morales MD Work Phone: [facility] 12-20-2022 14:03-0400 Body weight 154 kg Jani Morales MD Work Phone: [facility] 12-20-2022 13:02-0400 Body height 170.2 cm Jennifer CASEY Work Phone: [facility] 12-20-2022 13:02-0400 Body mass index (BMI) [Ratio] 53.09 kg/m2 Jennifer CASEY Work Phone: [facility] 12-20-2022 13:02-0400 Body temperature 97.39 [degF] Jennifer CASEY Work Phone: [facility] 12-20-2022 13:02-0400 Body weight 153.77 kg Jennifer Jackson PA Work Phone: [facility] 12-12-2022 17:28-0400 Body temperature 97.39 [degF] Rigo Lr MD Work Phone: [facility] 12-12-2022 17:28-0400 Diastolic blood pressure 91 mm[Hg] Rigo Lr MD Work Phone: [facility] 12-12-2022 17:28-0400 Heart rate 105 /min Rigo Lr MD Work Phone: [facility] 12-12-2022 17:28-0400 Respiratory rate 18 /min Rigo Lr MD Work Phone: [facility] 12-12-2022 17:28-0400 SaO2% (BldA) [Mass fraction] 95 % Rigo Lr MD Work Phone: [facility] 12-12-2022 17:28-0400 Systolic blood pressure 149 mm[Hg] Rigo Lr MD Work Phone: [facility] 12-07-2022 07:53-0500 Body height 170.2 cm Rigo Lr MD Work Phone: [facility] 12-04-2022 00:55-0500 Body mass index (BMI) [Ratio] 53.13 kg/m2 Rigo Lr MD Work Phone: [facility] 12-04-2022 00:55-0500 Body weight 153.86 kg Rigo Lr MD Work Phone: [facility] 11-27-2022 13:49-0500 Body height 170.2 cm Teresa Huerta DO Work Phone: [facility] 11-27-2022 11:26-0500 Body temperature 97.5 [degF] Teresa Huerta DO Work Phone: [facility] 11-27-2022 11:26-0500 Diastolic blood pressure 62 mm[Hg] Teresa Huerta DO Work Phone: [facility] 11-27-2022 11:26-0500 Heart rate 83 /min Teresa Huerta DO Work Phone: [facility] 11-27-2022 11:26-0500 SaO2% (BldA) [Mass fraction] 95 % Teresa Huerta DO Work Phone: [facility] 11-27-2022 11:26-0500 Systolic blood pressure 118 mm[Hg] Teresa Huerta DO Work Phone: [facility] 11-26-2022 20:05-0500 Respiratory rate 16 /min Teresa Huerta DO Work Phone: [facility] 11-17-2022 13:48-0500 Body mass index (BMI) [Ratio] 55.96 kg/m2 Teresa Huerta DO Work Phone: [facility] 11-17-2022 13:48-0500 Body weight 162.12 kg Teresa Huerta DO Work Phone: [facility] 11-07-2022 06:01-0500 Diastolic blood pressure 77 mm[Hg] [employer] REPAIRER-[employer] Oj Maddox [employer]ANT REPAIRER Work Phone: [facility] 11-07-2022 06:01-0500 Heart rate 87 /min [employer] REPAIRER-[employer] Oj Maddox [employer]ATION [employer]ANT REPAIRER Work Phone: [facility] 11-07-2022 06:01-0500 Respiratory rate 24 /min [employer] REPAIRER-[employer] Oj Maddox PREPARATION PLANT REPAIRER Work Phone: [facility] 11-07-2022 06:01-0500 Systolic blood pressure 94 mm[Hg] [employer] REPAIRER-C Oj Maddox PREPARATION PLANT REPAIRER Work Phone: [facility] 11-07-2022 05:23-0500 Body temperature 97.4 [degF] [employer] REPAIRER-C Oj Maddox PREPARATION PLANT REPAIRER Work Phone: [facility] 11-07-2022 05:23-0500 SaO2% (BldA) [Mass fraction] 94 % [employer] REPAIRER-C Oj Maddox PREPARATION PLANT REPAIRER Work Phone: [facility] 11-06-2022 18:31-0500 Body height 167.64 cm [employer] REPAIRER-C Oj Maddox PREPARATION PLANT REPAIRER Work Phone: [facility] 11-06-2022 18:31-0500 Body mass index (BMI) [Ratio] 57.9 kg/m2 [employer] REPAIRER-[employer] Oj Maddox PREPARATION PLANT REPAIRER Work Phone: [facility] 11-06-2022 18:31-0500 Body weight 162.7 kg [employer] REPAIRER-C Oj Maddox PREPARATION PLANT REPAIRER Work Phone: [facility] 11-02-2022 12:22-0500 Body temperature 97.3 [degF] Himanshu Schaefer MD Work Phone: [facility] 11-02-2022 12:22-0500 Diastolic blood pressure 69 mm[Hg] Himanshu Schaefer MD Work Phone: [facility] 11-02-2022 12:22-0500 Heart rate 103 /min Himanshu Schaefer MD Work Phone: [facility] 11-02-2022 12:22-0500 Respiratory rate 18 /min Himanshu Schaefer MD Work Phone: [facility] 11-02-2022 12:22-0500 SaO2% (BldA) [Mass fraction] 96 % Himanshu Schaefer MD Work Phone: [facility] 11-02-2022 12:22-0500 Systolic blood pressure 111 mm[Hg] Himanshu Schaefer MD Work Phone: [facility] 11-02-2022 08:07-0500 Body height 167.6 cm Himanshu Schaefer MD Work Phone: [facility] 10-30-2022 14:05-0500 Body mass index (BMI) [Ratio] 56.52 kg/m2 Himanshu Schaefer MD Work Phone: [facility] 10-30-2022 14:05-0500 Body weight 158.76 kg Himanshu Schaefer MD Work Phone: [facility] 10-23-2022 13:54-0500 Body temperature 97.3 [degF] Rusty Mercado MD Work Phone: [facility] 10-20-2022 13:13-0500 Body temperature 98.6 [degF] [employer] REPAIRER-[employer] Oj Maddox [employer]ATION [employer]ANT REPAIRER Work Phone: [facility] 10-20-2022 13:13-0500 Diastolic blood pressure 98 mm[Hg] [employer] REPAIRER-C Oj Maddox PRE[employer]ATION [employer]ANT REPAIRER Work Phone: [facility] 10-20-2022 13:13-0500 Heart rate 92 /min [employer] REPAIRER-[employer] Oj Maddox PRE[employer]ATION PLANT REPAIRER Work Phone: [facility] 10-20-2022 13:13-0500 Respiratory rate 18 /min [employer] REPAIRER-C Oj Maddox PREPARATION PLANT REPAIRER Work Phone: [facility] 10-20-2022 13:13-0500 SaO2% (BldA) [Mass fraction] 97 % [employer] REPAIRER-C Oj Maddox PREPARATION PLANT REPAIRER Work Phone: [facility] 10-20-2022 13:13-0500 Systolic blood pressure 141 mm[Hg] [employer] REPAIRER-C Oj Maddox [employer]ANT REPAIRER Work Phone: [facility] 10-17-2022 23:06-0500 Inhaled oxygen flow rate 2 L/min [employer] REPA[employer]ER-[employer] Oj Maddox [employer]ANT REPAIRER Work Phone: [facility] 10-17-2022 14:16-0500 Body height 168 cm [employer] REPAIRER-C Oj Maddox PREPARATION PLANT REPAIRER Work Phone: [facility] 10-17-2022 14:16-0500 Body weight 167.6 kg [employer] REPAIRER-C Oj Maddox PREPARATION PLANT REPAIRER Work Phone: [facility] 10-16-2022 02:35-0500 Body mass index (BMI) [Ratio] 59.3 kg/m2 [employer] REPAIRER[employer] Oj Maddox PRE[employer]ATION [employer]ANT REPAIRER Work Phone: [facility] 10-16-2022 01:47-0500 Body temperature 100.8 [degF] [employer] REPAIRER-C Oj Mancusopkins PREPARATION PLANT REPAIRER Work Phone: [facility] Work Phone: 10-16-2022 01:47-0500 Diastolic blood pressure 44 mm[Hg] [employer] REPAIRER-C Oj Maddox PREPAR[employer]ANT REPAIRER Work Phone: [facility] Work Phone: 10-16-2022 01:47-0500 Heart rate 99 /min [employer] REPAIRER-[employer] Oj Mancusopkins PRE[employer]ATION [employer]ANT REPAIRER Work Phone: [facility] Work Phone: 10-16-2022 01:47-0500 Respiratory rate 33 /min [employer] REPAIRER-C Oj Mancusopkins PRE[employer]ANT REPAIRER Work Phone: [facility] Work Phone: 10-16-2022 01:47-0500 SaO2% (BldA) [Mass fraction] 96 % [employer] REPAIRER-C Oj Mancusopkins PREPARATION [employer]ANT REPAIRER Work Phone: [facility] Work Phone: 10-16-2022 01:47-0500 Systolic blood pressure 128 mm[Hg] [employer] REPAIRER-C Oj Mancusopkins PREPARATION [employer]ANT REPAIRER Work Phone: [facility] Work Phone: 10-15-2022 23:18-0500 Body height 167.64 cm [employer] REPAIRER-C Oj Mancusopkins PRE[employer] PLANT REPAIRER Work Phone: [facility] Work Phone: 10-15-2022 23:18-0500 Body mass index (BMI) [Ratio] 61.4 kg/m2 [employer] REPAIRER-C Oj Mancusopkins PREPARATION [employer]ANT REPAIRER Work Phone: [facility] Work Phone: 10-15-2022 23:18-0500 Body weight 172.6 kg [employer] REPAIRER-C Oj Mancusopkins PREPAR[employer]ANT REPAIRER Work Phone: [facility] Work Phone: 10-04-2022 07:36-0500 Body mass index (BMI) [Ratio] 58.6 kg/m2 [employer] REPAIRER-C Oj Mancusopkins PREPARATION PLANT REPAIRER Work Phone: [facility] 10-04-2022 07:36-0500 Body temperature 97.2 [degF] [employer] REPAIRER-C Oj Orange [employer]PARATION PLANT REPAIRER Work Phone: [facility] 10-04-2022 07:36-0500 Body weight 164.65 kg [employer] REPAIRER-C Oj Maddox PREPARATION PLANT REPAIRER Work Phone: [facility] 10-04-2022 07:36-0500 Diastolic blood pressure 82 mm[Hg] [employer] REPAIRER-C Oj Maddox PREPARATION [employer]ANT REPAIRER Work Phone: [facility] 10-04-2022 07:36-0500 Heart rate 83 /min [employer] REPAIRER-C Oj Maddox PREPARATION PLANT REPAIRER Work Phone: [facility] 10-04-2022 07:36-0500 Respiratory rate 20 /min [employer] REPAIRER-C Oj Orange PREPARATION PLANT REPAIRER Work Phone: [facility] 10-04-2022 07:36-0500 SaO2% (BldA) [Mass fraction] 94 % [employer] REPAIRER-C Oj Orange PREPARATION PLANT REPAIRER Work Phone: [facility] 10-04-2022 07:36-0500 Systolic blood pressure 133 mm[Hg] [employer] REPAIRER-C Oj Maddox PREPARATION [employer]ANT REPAIRER Work Phone: [facility] 09-10-2022 15:16-0500 Heart rate 100 /min [employer] REPAIRER-C Oj Varsha [employer]ANT REPAIRER Work Phone: [facility] 09-10-2022 15:16-0500 Respiratory rate 21 /min [employer] REPAIRER-C Oj Maddox PREPARATION PLANT REPAIRER Work Phone: [facility] 09-10-2022 15:16-0500 SaO2% (BldA) [Mass fraction] 93 % [employer] REPAIRER-C Oj Maddox PREPARATION PLANT REPAIRER Work Phone: [facility] 09-10-2022 12:45-0500 Inhaled oxygen flow rate 2 L/min [employer] REPAIRER-C Oj Maddox PREPARATION [employer]ANT REPAIRER Work Phone: [facility] 09-10-2022 12:27-0500 Body height 167.64 cm [employer] REPAIRER-C Oj Varsha PREPAR[employer] PLANT REPAIRER Work Phone: [facility] Work Phone: 09-10-2022 12:27-0500 Body mass index (BMI) [Ratio] 58.3 kg/m2 [employer] REPAIRER-[employer] Oj Maddox PRE[employer]ANT REPAIRER Work Phone: [facility] 09-10-2022 12:27-0500 Body temperature 97.2 [degF] [employer] REPAIRER-C Oj Maddox PREPARATION PLANT REPAIRER Work Phone: [facility] 09-10-2022 12:27-0500 Body weight 164.06 kg [employer] REPAIRER-C Oj Maddox PREPAR[employer]ANT REPAIRER Work Phone: [facility] 09-10-2022 12:27-0500 Diastolic blood pressure 55 mm[Hg] [employer] REPAIRER-C Oj Maddox PREPARATION [employer]ANT REPAIRER Work Phone: [facility] 09-10-2022 12:27-0500 Systolic blood pressure 111 mm[Hg] [employer] REPAIRER-C Oj Maddox PREPARATION [employer]ANT REPAIRER Work Phone: [facility] 09-05-2022 14:51-0500 Heart rate 87 /min [employer] REPAIRER-C Oj Maddox PREPARATION [employer]ANT REPAIRER Work Phone: [facility] 09-05-2022 13:22-0500 Body temperature 98.4 [degF] [employer] REPAIRER-C Oj Maddox PREPARATION PLANT REPAIRER Work Phone: [facility] 09-05-2022 13:22-0500 Diastolic blood pressure 66 mm[Hg] [employer] REPAIRER-C Oj Maddox PREPARATION [employer]ANT REPAIRER Work Phone: [facility] 09-05-2022 13:22-0500 Respiratory rate 16 /min [employer] REPAIRER-C Oj Maddox PREPARATION PLANT REPAIRER Work Phone: [facility] 09-05-2022 13:22-0500 SaO2% (BldA) [Mass fraction] 93 % [employer] REPAIRER-C Oj Mancusopkins PREPARATION PLANT REPAIRER Work Phone: [facility] 09-05-2022 13:22-0500 Systolic blood pressure 127 mm[Hg] [employer] REPAIRER-C Oj Mancusopkins PREPARATION [employer]ANT REPAIRER Work Phone: [facility] 09-05-2022 11:40-0500 Inhaled oxygen flow rate 0 L/min [employer] REPAIRER-C Oj Mancusopkins PREPARATION PLANT REPAIRER Work Phone: [facility] 09-05-2022 06:00-0500 Body weight 159.6 kg [employer] REPAIRER-C Oj Mancusopkins PRE[employer]ANT REPAIRER Work Phone: [facility] 09-04-2022 12:45-0500 Body height 170 cm [employer]ATION [employer]ANT REPAIRER-C Oj Mancusopkins PREPAR[employer] PLANT REPAIRER Work Phone: [facility] Work Phone: 09-01-2022 07:00-0500 Inhaled oxygen concentration 30 % [employer] REPAIRER-C Oj Mancusopkins PREPAR[employer]ANT REPAIRER Work Phone: [facility] 08-31-2022 21:07-0500 Body mass index (BMI) [Ratio] 53.9 kg/m2 [employer] REPAIRER-C Oj Mancusopkins PREPAR[employer]ANT REPAIRER Work Phone: [facility] 08-31-2022 19:30-0500 Heart rate 97 /min [facility] Work Phone: 08-31-2022 19:30-0500 Inhaled oxygen concentration 100 % [facility] Work Phone: 08-31-2022 19:30-0500 Respiratory rate 14 /min [facility] Work Phone: 08-31-2022 19:30-0500 SaO2% (BldA) [Mass fraction] 98 % [facility] Work Phone: 08-31-2022 19:27-0500 Diastolic blood pressure 71 mm[Hg] [facility] Work Phone: 08-31-2022 19:27-0500 Systolic blood pressure 134 mm[Hg] [facility] Work Phone: 08-31-2022 18:07-0500 Body temperature 99.1 [degF] [facility] Work Phone: 08-31-2022 17:49-0500 Inhaled oxygen flow rate 2 L/min [facility] Work Phone: 08-31-2022 11:27-0500 Body height 170 cm [facility] Work Phone: 08-31-2022 11:27-0500 Body mass index (BMI) [Ratio] 56.2 kg/m2 [facility] Work Phone: 08-31-2022 11:27-0500 Body weight 162.6 kg [facility] Work Phone: 01-21-2022 18:24-0400 Body temperature 99 [degF] [employer] REPAIRER-C Oj Maddox PRE[employer]ANT REPAIRER Work Phone: [facility] Work Phone: 01-21-2022 18:24-0400 Diastolic blood pressure 77 mm[Hg] [employer] REPAIRER-C Oj Maddox PREPARATION [employer]ANT REPAIRER Work Phone: [facility] Work Phone: 01-21-2022 18:24-0400 Heart rate 88 /min [employer] REPAIRER-C Oj Maddox PRE[employer]ANT REPAIRER Work Phone: [facility] Work Phone: 01-21-2022 18:24-0400 Respiratory rate 22 /min [employer] REPAIRER-C Oj Maddox PREPAR[employer]ANT REPAIRER Work Phone: [facility] Work Phone: 01-21-2022 18:24-0400 SaO2% (BldA) [Mass fraction] 96 % [employer] REPAIRER-C Oj Maddox PREPARATION PLANT REPAIRER Work Phone: [facility] Work Phone: 01-21-2022 18:24-0400 Systolic blood pressure 136 mm[Hg] [employer] REPAIRER-C Oj Maddox PREPARATION PLANT REPAIRER Work Phone: [facility] Work Phone: 01-21-2022 13:54-0400 Body height 170 cm [employer] REPAIRER-C Oj Maddox PREPARATION PLANT REPAIRER Work Phone: [facility] Work Phone: 01-21-2022 13:54-0400 Body mass index (BMI) [Ratio] 56.5 kg/m2 [employer] REPAIRER-C Oj Maddox PREPARATION [employer]ANT REPAIRER Work Phone: [facility] Work Phone: 01-21-2022 13:54-0400 Body weight 163.29 kg [employer] REPAIRER-C Oj Maddox PREPARATION PLANT REPAIRER Work Phone: [facility] Work Phone: 01-11-2022 16:15-0400 Diastolic blood pressure 89 mm[Hg] Amberly Schaefer MD Work Phone: [facility] 01-11-2022 16:15-0400 Heart rate 84 /min Amberly Schaefer MD Work Phone: [facility] 01-11-2022 16:15-0400 Respiratory rate 18 /min Amberly Schaefer MD Work Phone: [facility] 01-11-2022 16:15-0400 SaO2% (BldA) [Mass fraction] 94 % Amberly Schaefer MD Work Phone: [facility] 01-11-2022 16:15-0400 Systolic blood pressure 123 mm[Hg] mAberly Schaefer MD Work Phone: [facility] 01-11-2022 15:31-0400 Body temperature 97 [degF] Amberly Schaefer MD Work Phone: [facility] 01-11-2022 12:53-0400 Body height 170.2 cm Amberly Schaefer MD Work Phone: [facility] 01-11-2022 12:53-0400 Body mass index (BMI) [Ratio] 53.25 kg/m2 Amberly Schaefer MD Work Phone: [facility] 01-11-2022 12:53-0400 Body weight 154.22 kg Amberly Schaefer MD Work Phone: [facility] 12-19-2021 11:21-0400 Diastolic blood pressure 95 mm[Hg] Amberly Schaefer MD Work Phone: [facility] 12-19-2021 11:21-0400 Heart rate 78 /min Amberly Schaefer MD Work Phone: [facility] 12-19-2021 11:21-0400 Respiratory rate 20 /min Amberly Schaefer MD Work Phone: [facility] 12-19-2021 11:21-0400 SaO2% (BldA) [Mass fraction] 92 % Amberly Schaefer MD Work Phone: [facility] 12-19-2021 11:21-0400 Systolic blood pressure 132 mm[Hg] Amberly Schaefer MD Work Phone: [facility] 12-19-2021 10:53-0400 Body temperature 97.81 [degF] Amberly Schaefer MD Work Phone: [facility] 12-19-2021 07:48-0400 Body height 170.2 cm Amberly Schaefer MD Work Phone: [facility] 12-19-2021 07:48-0400 Body mass index (BMI) [Ratio] 53.25 kg/m2 Amberly Schaefer MD Work Phone: [facility] 12-19-2021 07:48-0400 Body weight 154.22 kg Amberly Schaefer MD Work Phone: [facility] 11-13-2021 01:38-0500 Body height 170.2 cm Oj Maddox SUPERVISOR [employer] SILVERING - DATA MINING ANALYST Work Phone: [facility] 11-13-2021 01:38-0500 Body mass index (BMI) [Ratio] 53.72 kg/m2 Oj Maddox SUPERVISOR [employer] SILVERING - DATA MINING ANALYST Work Phone: [facility] 11-13-2021 01:38-0500 Body temperature 98.2 [degF] Oj Maddox SUPERVISOR HAND SILVERING - DATA MINING ANALYST Work Phone: [facility] 11-13-2021 01:38-0500 Body weight 155.58 kg Oj Maddox SUPERVISOR HAND SILVERING - DATA MINING ANALYST Work Phone: [facility] 11-13-2021 01:38-0500 Diastolic blood pressure 82 mm[Hg] Oj Maddox SUPERVISOR HAND SILVERING - DATA MINING ANALYST Work Phone: [facility] 11-13-2021 01:38-0500 Heart rate 89 /min Oj Maddox SUPERVISOR [employer] SILVERING - DATA MINING ANALYST Work Phone: [facility] 11-13-2021 01:38-0500 Respiratory rate 16 /min Oj Maddox SUPERVISOR HAND SILVERING - DATA MINING ANALYST Work Phone: [facility] 11-13-2021 01:38-0500 SaO2% (BldA) [Mass fraction] 96 % Oj Maddox SUPERVISOR [employer] SILVERING - DATA MINING ANALYST Work Phone: [facility] 11-13-2021 01:38-0500 Systolic blood pressure 123 mm[Hg] Oj Maddox SUPERVISOR [employer] SILVERING - DATA MINING ANALYST Work Phone: [facility] 10-03-2021 08:00-0500 Body temperature 97.1 [degF] [employer] REPAIRER-C Oj Maddox PREPARATION PLANT REPAIRER Work Phone: [facility] Work Phone: 10-03-2021 08:00-0500 Diastolic blood pressure 81 mm[Hg] [employer]ANT REPAIRER-C Oj Mancusopkins PREPARATION PLANT REPAIRER Work Phone: [facility] Work Phone: 10-03-2021 08:00-0500 Heart rate 78 /min [employer] REPAIRER-C Oj Orange PREPARATION PLANT REPAIRER Work Phone: [facility] Work Phone: 10-03-2021 08:00-0500 Respiratory rate 20 /min [employer] REPAIRER-C Oj Mancusopkins PREPARATION PLANT REPAIRER Work Phone: [facility] Work Phone: 10-03-2021 08:00-0500 SaO2% (BldA) [Mass fraction] 97 % [employer]ANT REPAIRER-C Oj Mancusopkins PREPARATION PLANT REPAIRER Work Phone: [facility] Work Phone: 10-03-2021 08:00-0500 Systolic blood pressure 137 mm[Hg] PREPAR[employer]ANT REPAIRER-C Oj Mancusopkins PREPARATION PLANT REPAIRER Work Phone: [facility] Work Phone: 10-01-2021 11:33-0500 Body weight 162.8 kg [employer]ATION [employer]ANT REPAIRER-C Oj Maddox PREPARATION PLANT REPAIRER Work Phone: [facility] Work Phone: 09-30-2021 22:49-0500 Body mass index (BMI) [Ratio] 56.2 kg/m2 [employer] REPAIRER-C Oj Mancusopkins PREPARATION PLANT REPAIRER Work Phone: [facility] Work Phone: 08-04-2021 12:09-0400 Diastolic blood pressure 76 mm[Hg] Rusty Mercado MD Work Phone: [facility] Work Phone: 08-04-2021 12:09-0400 Heart rate 88 /min Rusty Mercado MD Work Phone: [facility] Work Phone: 08-04-2021 12:09-0400 Respiratory rate 22 /min Rusty Mercado MD Work Phone: [facility] Work Phone: 08-04-2021 12:09-0400 SaO2% (BldA) [Mass fraction] 94 % Rusty Mercado MD Work Phone: [facility] Work Phone: 08-04-2021 12:09-0400 Systolic blood pressure 120 mm[Hg] Rusty Mercado MD Work Phone: [facility] Work Phone: 08-04-2021 11:15-0400 Body temperature 97.81 [degF] Rusty Mercado MD Work Phone: [facility] Work Phone: 07-28-2021 10:07-0400 Body height 170.2 cm Rusty Mercado MD Work Phone: [facility] Work Phone: 07-28-2021 10:07-0400 Body mass index (BMI) [Ratio] 49.49 kg/m2 Rusty Mercado MD Work Phone: [facility] Work Phone: 07-28-2021 10:07-0400 Body weight 143.34 kg Rusty Mercado MD Work Phone: [facility] Work Phone: 07-28-2021 10:05-0400 Body temperature 98.01 [degF] Rusty Mercado MD Work Phone: [facility] Work Phone: 07-28-2021 10:05-0400 Diastolic blood pressure 93 mm[Hg] Rusty Mercado MD Work Phone: [employer] Work Phone: 07-28-2021 10:05-0400 Heart rate 90 /min Rusty Mercado MD Work Phone: [facility] Work Phone: 07-28-2021 10:05-0400 SaO2% (BldA) [Mass fraction] 96 % Rusty Mercado MD Work Phone: [facility] Work Phone: 07-28-2021 10:05-0400 Systolic blood pressure 146 mm[Hg] Rusty Mercado MD Work Phone: [facility] Work Phone: 07-28-2021 09:50-0400 Respiratory rate 16 /min Rusty Mercado MD Work Phone: [facility] Work Phone: 08-18-2020 17:37-0500 Body Temperature 98.01 [degF] Rusty Mercado [facility] [place] 08-18-2020 17:37-0500 BP Diastolic 93 mm[Hg] [facility] [place] 08-18-2020 17:37-0500 BP Systolic 141 mm[Hg] [facility] , [place] 08-18-2020 17:37-0500 Pulse (Heart Rate) 78 /min Rusty Jess [facility], [place] 08-18-2020 17:37-0500 Pulse Oximetry 90 % [facility] , [place] 08-18-2020 17:37-0500 Respiratory Rate 18 /min [facility] 08-17-2020 16:45-0500 BMI (Body Mass Index) 51.52 kg/m2 Rusty Jess [facility] 08-17-2020 16:45-0500 Body weight 149.23 kg [facility] , [place] 08-17-2020 16:45-0500 Height 170.2 cm [facility] [place] 08-07-2020 05:42-0500 Body Temperature 97.2 [degF] [facility] 08-07-2020 05:42-0500 BP Diastolic 56 mm[Hg] [facility] [place] 08-07-2020 05:42-0500 BP Systolic 119 mm[Hg] [facility] [place] 08-07-2020 05:42-0500 Pulse (Heart Rate) 70 /min [facility] 08-07-2020 05:42-0500 Pulse Oximetry 93 % [facility] [place] 08-07-2020 05:42-0500 Respiratory Rate 20 /min [facility] 07-27-2020 12:00-0400 Body Temperature 97.7 [degF] [facility] [place] 07-27-2020 12:00-0400 BP Diastolic 99 mm[Hg] [facility] [place] , [place] 07-27-2020 12:00-0400 BP Systolic 143 mm[Hg] [facility] [place] 07-27-2020 12:00-0400 Pulse (Heart Rate) 91 /min [facility] 07-27-2020 12:00-0400 Pulse Oximetry 95 % [facility] [place] 07-27-2020 12:00-0400 Respiratory Rate 19 /min [facility] 07-27-2020 08:35-0400 BMI (Body Mass Index) 51.37 kg/m2 [facility] 07-27-2020 08:35-0400 Body weight 148.78 kg [facility] [place] 07-27-2020 08:35-0400 Height 170.2 cm [facility] [place] 07-08-2020 13:35-0400 Body Temperature 97.7 [degF] [facility] 07-08-2020 13:35-0400 Pulse (Heart Rate) 72 /min [facility] 07-08-2020 13:35-0400 Respiratory Rate 14 /min [facility] 07-08-2020 12:55-0400 BP Diastolic 74 mm[Hg] [facility] , [place] 07-08-2020 12:55-0400 BP Systolic 133 mm[Hg] [facility] , [place] 07-08-2020 12:55-0400 Pulse Oximetry 93 % [facility] , [place] 07-08-2020 09:30-0400 BMI (Body Mass Index) 51.37 kg/m2 [facility] 07-08-2020 09:30-0400 Body weight 148.[address] [facility] , [place] 07-08-2020 09:30-[address] [facility] , [place] 07-01-2020 10:19-0400 BMI (Body Mass Index) 51.37 kg/m2 [facility] 07-01-2020 10:19-0400 Body Temperature 96.69 [degF] [facility] [place] 07-01-2020 10:19-0400 Body weight 148.78 [facility] [place] 07-01-2020 10:19-0400 BP Diastolic 95 mm[Hg] [facility] [place] 07-01-2020 10:19-0400 BP Systolic 154 mm[Hg] [facility] [place] 07-01-2020 10:19-0400 Height 170.2 cm [facility] [place] 07-01-2020 10:19-0400 Pulse (Heart Rate) 82 /min [facility] 07-01-2020 10:19-0400 Pulse Oximetry 96 % [facility] [place] 07-01-2020 10:19-0400 Respiratory Rate 22 /min [facility] 05-09-2019 05:01-0400 Body Temperature 97.2 [degF] [facility] [place] 05-[facility]-2019 05:01-0400 BP Diastolic 64 mm[Hg] [facility] [place] 05-09-2019 05:01-0400 BP Systolic 120 mm[Hg] [facility] [place] 05-09-2019 05:01-0400 Pulse (Heart Rate) 65 /min [facility] 05-09-2019 05:01-0400 Pulse Oximetry 93 % [facility] [place] 05-09-2019 05:01-0400 Respiratory Rate 18 /min [facility] [place] 05-05-2019 15:49-0400 Height 170.2 cm [facility] [place] 05-03-2019 15:44-0400 BMI (Body Mass Index) 50.12 kg/m2 [facility], [place] 05-03-2019 15:44-0400 Body weight 145.15 kg Teresa [place], [place] 12-04-2018 07:35-0500 BP Diastolic 105 mm[Hg] [facility] 12-04-2018 07:35-0500 BP Systolic 166 mm[Hg] [facility] 12-04-2018 07:35-0500 Pulse (Heart Rate) 81 /min [facility] 12-04-2018 07:35-0500 Pulse Oximetry 97 % [facility] 12-04-2018 07:35-0500 Respiratory Rate 16 /min [facility] 12-03-2018 22:39-0500 BMI (Body Mass Index) 46.99 kg/m2 [facility] 12-03-2018 22:39-0500 Body Temperature 97.39 [degF] [facility] 12-03-2018 22:39-0500 Height 170.2 cm [facility] 12-03-2018 22:39-0500 Weight 136.08 kg [facility] 11-05-2018 11:41-0500 Body Temperature 98.4 [degF] [facility] 11-05-2018 11:41-0500 BP Diastolic 60 mm[facility]Hg[facility]-2018 11:41-0500 BP Systolic 106 mm[Hg] [facility] 11-05-2018 11:41-0500 Pulse (Heart Rate) 76 /min [facility] 11-05-2018 11:41-0500 Pulse Oximetry 94 % Rigo [facility] 11-05-2018 07:23-0500 Respiratory Rate 14 /min [facility] 11-01-2018 08:25-0500 BMI (Body Mass Index) 47.89 kg/m2 [facility] 11-01-2018 08:25-0500 Height 170.2 cm [facility] 11-01-2018 08:25-0500 Weight 138.7 kg Rigo Shelton [facility] Encounters Encounter Date Encounter Type Care Provider Facility Start: 05-16-2025 End: 05-16-2025 Emergency department patient visit Dr. Louis Penn MD Work Phone: -Emergency Department Work Phone: Start: 05-14-2025 End: 05-14-2025 Subsequent hospital visit by physician Enrique Preston MD PhD Work Phone: [facility] Comment on above: Chronic pain of both shoulders; Intractable neuropathic pain of upper extremity Start: 05-14-2025 End: 05-14-2025 ambulatory ENRIQUE Gomes [facility] Start: 05-08-2025 End: 05-08-[address] Louis Penn MD Work Phone: -[facility] Start: 05-08-2025 End: 05-08-2025 Patient encounter procedure Dania Edge PREPARATION PLANT REPAIRER-C -[facility] Work Phone: Start: 05-07-2025 End: 05-07-2025 Office outpatient new 30 minutes Loly Ortiz MD Work Phone: [facility] Comment on above: Fibromyalgia (Primar y Dx); Phantom pain Start: 05-07-2025 End: 05-08-2025 ambulatory [facility] Start: 04-29-2025 End: 04-29-2025 Office outpatient visit 25 minutes Enrique Preston MD PhD Work Phone: [facility] Comment on above: Intractable neuropat hic pain of upper extremity (Primary Dx); Chronic pain of both shoulders; Morbid obesity (Multi); Obstructive sleep apnea Start: 04-29-2025 End: 04-29-2025 ambulatory ENRIQUE Gomes [facility] Start: 04-14-2025 End: 04-14-2025 Office outpatient new 45 minutes [facility]ili Oliveros MD PhD [facility] Comment on above: Fibromyalgia; Suprascapular neuropathy, unspecified laterality Start: 04-14-2025 End: 04-14-2025 ambulatory MILI OLIVEROS [facility] Start: 01-27-2025 End: 01-27-2025 Patient encounter procedure Adwoa Cruz PREPARATION PLANT REPAIRER-C -[facility] Work Phone: Start: 01-27-2025 End: 01-27-2025 ambulatory Adwoa Cruz NP Facility:[facility] Start: 01-17-2025 Non-patient / Non-visit Dr. Vania Trinidad MD -[facility] Work Phone: Start: 01-16-2025 Non-patient / Non-visit Dr. Vania Trinidad MD -[facility] Work Phone: Start: 01-15-2025 Non-patient / Non-visit Dr. Vania Trinidad MD -[facility] Work Phone: Start: 01-14-2025 Non-patient / Non-visit Dr. Vania Trinidad MD -[facility] Work Phone: Start: 01-14-2025 ambulatory Rigo Trinidad Fac ility:[facility] Start: 01-14-2025 End: 01-17-2025 Evaluation and management of inpatient Dr. Rigo Trinidad MD -Progressive Care Unit Work Phone: Start: 12-29-2024 End: 12-29-[address] Kayla Alcantara MD -[facility] Work Phone: Start: 12-29-2024 End: 12-29-2024 ambulatory Kayla Alcantara Facility:[facility] Start: 12-19-2024 End: 12-19-[address] Kayla Alcantara MD -[facility] Work Phone: Start: 12-19-2024 End: 12-19-2024 ambulatory Kayla Alcantara Facility:[facility] Start: 11-27-2024 ambulatory Kayla Alcantara Facilit y:[facility] Start: 09-08-2024 ambulatory Dorina Marin ty:[facility] Start: 07-11-2024 End: 07-11-2024 ambulatory Ifeanyi Gilmore Facility:[facility] Start: 03-27-2024 End: 03-29-2024 ambulatory Billie Degroot Clinical Communication Start: 03-27-2024 End: 03-29-2024 Patient encounter [facility] Start: 01-02-2024 End: 01-02-2024 Patient encounter procedure Jani Morales MD Work Phone: [facility] Comment on above: Arthritis of right s [place] region Start: 01-02-2024 End: 01-02-2024 ambulatory [facility] Start: 12-26-2023 End: 12-26-2023 Patient encounter procedure Jani Morales MD Work Phone: [facility] Comment on above: Primary osteoarthrit is, left shoulder Start: 12-26-2023 End: 12-26-2023 ambulatory [facility] Start: 12-05-2023 End: 12-05-2023 Office outpatient new 30 minutes Ludwin Titus MD Work Phone: [facility] Comment on above: Left shoulder pain; Arthritis of left glenohumeral joint Start: 12-05-2023 End: 12-05-2023 ambulatory LUDWIN TITUS [facility] Start: 10-24-2023 Telephone encounter Ludwin bhardwaj MD Work Phone: [facility] Comment on above: Appointment Start: 10-12-2023 End: 10-12-2023 Office outpatient visit 25 minutes Bj Barroso MD Work Phone: [facility] Comment on above: Osteoarthritis of bi lateral glenohumeral joints (Primary Dx); Left shoulder pain Start: 10-12-2023 End: 10-12-2023 ambulatory BJ BARROSO [facility] Start: 10-11-2023 Orders Only Dorina parks PA-C Work Phone: [facility] Comment on above: Chronic pain in righ t shoulder (Primary Dx) Start: 08-03-2023 End: 08-03-2023 Postop follow up visit related to original px Rusty Mercado MD Work Phone: [facility] Comment on above: Above-knee amputatio n of left lower extremity with complication, subsequent encounter (HCC) (Primary Dx) Start: 08-03-2023 End: 08-03-2023 ambulatory RUSTY MERCADO [facility] Start: 07-23-2023 Non-patient / Non-visit PRE[employer]ATION PLANT REPAIRER-C Maria Dolores Maddox PREPARATION PLANT REPAIRER Work Phone: [facility] Work Phone: Start: 07-22-2023 Non-patient / Non-visit PREPARATION PLANT REPAIRER-C Maria Dolores Maddox PREPARATION PLANT REPAIRER Work Phone: [facility] Work Phone: Start: 07-21-2023 Non-patient / Non-visit PREPARATION PLANT REPAIRER-C Maria Dolores Maddox PREPARATION PLANT REPAIRER Work Phone: [facility] Work Phone: Start: 07-20-2023 End: 07-23-2023 Evaluation and management of inpatient PREPARATION PLANT REPAIRER-C Oj Maddox PREPARATION PLANT REPAIRER [facility] Work Phone: Start: 07-20-2023 Non-patient / Non-visit PRE[employer]ATION PLANT REPAIRER-C Maria Dolores Maddox PREPARATION PLANT REPAIRER Work Phone: [facility] Work Phone: Start: 07-11-2023 End: 07-11-2023 ambulatory CRISTIAN MAXWELL [facility] Start: 07-11-2023 End: 07-11-2023 Office outpatient visit 25 minutes Cristian Maxwell DO Work Phone: [facility] Disease Comment on above: Necrotizing soft tis susanna infection (Primary Dx); 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 care pharmacist (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 antibiotics Start: 07-09-2023 End: 07-09-2023 Postop follow up visit related to original px Jennifer CASEY Work Phone: [facility] Comment on above: Above-knee amputatio n of left lower extremity with complication, subsequent encounter (HCC) (Primary Dx) Start: 07-09-2023 End: 07-09-2023 ambulatory JENNIFER JACKSON [facility] Start: 06-26-2023 End: 07-03-2023 Evaluation and management of inpatient VINH COLLINS [facility] Start: 06-18-2023 Orders Only Rusty mcdaniel MD Work Phone: [facility] Start: 05-30-2023 End: 05-30-2023 Evaluation and management of inpatient Siobhan Esquivel SUPERVISOR HAND SILVERING - DATA MINING ANALYST Work Phone: [facility] Start: 05-29-2023 End: 06-08-2023 Evaluation and management of inpatient Rusty Mercado MD Work Phone: [facility] Comment on above: Above-knee amputatio n of left lower extremity with complication, initial encounter (HCC) (Primary Dx); 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, initial encounter (HCC); 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, initial encounter (HCC) Start: 05-21-2023 End: 05-21-2023 ambulatory Jennifer Jackson CARMELA Work Phone: [facility] Start: 05-18-2023 End: 05-18-2023 Postop follow up visit related to original px Jennifer Jackson CARMELA Work Phone: [facility] Comment on above: Above-knee amputatio n of left lower extremity with complication, subsequent encounter (HCC) (Primary Dx) Start: 05-18-2023 End: 05-18-2023 ambulatory [facility] Start: 05-18-2023 Telephone encounter Rusty Mercado MD Work Phone: [facility] Comment on above: Post-op Problem (Pos t op bleeding - DOS 05/08/23) Start: 05-11-2023 End: 05-11-2023 ambulatory [facility] Start: 05-11-2023 End: 05-11-2023 Postop follow up visit related to original px Jennifer Jackson CARMELA Work Phone: [facility] Comment on above: Above-knee amputatio n of left lower extremity with complication, initial encounter (HCC) (Primary Dx) Start: 05-10-2023 Telephone encounter Rusty Mercado MD Work Phone: [facility] Comment on above: Nurse Navigation Start: 05-08-2023 End: 05-08-2023 ambulatory [facility] Start: 05-08-2023 End: 05-08-2023 Subsequent hospital visit by physician Rusty Mercado MD Work Phone: [facility] Comment on above: Above-knee amputatio n of left lower extremity with complication, initial encounter (HCC) (Primary Dx) Start: 05-07-2023 End: 05-07-2023 ambulatory Jennifer Sharonmore CASEY Work Phone: [facility] Start: 05-07-2023 End: 05-07-2023 Office outpatient visit 15 minutes Rusty Mercado MD Work Phone: [facility] Comment on above: Above-knee amputatio n of left lower extremity with complication, initial encounter (HCC) (Primary Dx) Start: 05-02-2023 End: 05-03-2023 ambulatory OJ MADDOX SUPERVISOR HAND SILVERING - DATA MINING ANALYST Facility:B Start: 05-02-2023 End: 05-02-2023 Patient encounter procedure OJ Nette MADDOX SUPERVISOR HAND SILVERING - DATA MINING ANALYST [facility] Start: 04-23-2023 End: 04-24-2023 ambulatory OJ Nette VARSHA SUPERVISOR HAND SILVERING - DATA MINING ANALYST Facility:B Start: 03-23-2023 Telephone encounter Rusty Mercado MD Work Phone: [facility] Comment on above: Cancelled Appointmen t Start: 02-22-2023 End: 02-22-2023 Subsequent hospital visit by physician Fabrizio Leung MD Work Phone: [facility] MAIN OR Comment on above: Pain from implanted hardware, initial encounter (Primary Dx) Start: 02-12-2023 End: 02-12-2023 Postop follow up visit related to original px Rusty Mercado MD Work Phone: [facility] Comment on above: Above-knee amputatio n of left lower extremity with complication, subsequent encounter (HCC) (Primary Dx) Start: 02-12-2023 End: 02-12-2023 Patient encounter procedure Jani Morales MD Work Phone: [facility] Comment on above: Osteoarthritis of AC (acromioclavicular) joint (Primary Dx); Chronic pain of both shoulders Start: 01-30-2023 End: 01-30-2023 Patient encounter procedure Jani Morales MD Work Phone: [facility] Comment on above: Primary osteoarthrit is, left shoulder (Primary Dx) Start: 01-19-2023 Telephone encounter Jani cavazos MD Work Phone: [facility] Comment on above: Other (L shoulder pa in increasing) Other (L shoulder pa in increasing); Advice Only Start: 01-15-2023 End: 01-15-2023 Office outpatient visit 15 minutes Jani Morales MD Work Phone: [facility] Comment on above: Primary osteoarthrit is, left shoulder (Primary Dx) Start: 01-15-2023 End: 01-15-2023 Postop follow up visit related to original px Rusty Mercado MD Work Phone: [facility] Comment on above: Above-knee amputatio n of left lower extremity with complication, initial encounter (HCC) (Primary Dx) Start: 01-14-2023 Telephone encounter Jani eugene MD Work Phone: [facility] Infectious Dis Comment on above: Other (PICC pulled o ut. ) Start: 01-12-2023 End: 01-12-2023 Office outpatient visit 25 minutes Fabrizio Leung MD Work Phone: [facility] Urogynecology Comment on above: Complication of urin almar electronic stimulator device, unspecified complication, initial encounter (HCC) (Primary Dx) Start: 12-27-2022 Telephone encounter Rusty Mercado MD Work Phone: [facility] Comment on above: Wound Care update Start: 12-20-2022 End: 12-20-2022 Office outpatient new 20 minutes Jani Morales MD Work Phone: [facility] Comment on above: Primary osteoarthrit is, left shoulder (Primary Dx); Acute bursitis of left shoulder Start: 12-20-2022 End: 12-20-2022 Postop follow up visit related to original px Jennifer Suzyluis carlos CASEY Work Phone: [facility] Comment on above: Above-knee amputatio n of left lower extremity with complication, initial encounter (HCC) (Primary Dx) Start: 12-07-2022 End: 12-07-2022 Evaluation and management of inpatient Ach Xr Portable 1 [facility] Comment on above: Arrived Start: 12-07-2022 End: 12-07-2022 Evaluation and management of inpatient Ach Xr Exam Room 1 [facility] Comment on above: Arrived Start: 12-03-2022 End: 12-03-2022 Subsequent hospital visit by physician [facility] Ed Xr Portable [facility] Comment on above: Arrived Start: 12-03-2022 End: 12-03-2022 Subsequent hospital visit by physician [facility] Ed Xr Portable [facility] Comment on above: Arrived Start: 12-03-2022 End: 12-12-2022 Evaluation and management of inpatient Rigo Lr MD Work Phone: [facility] 7W MED SURG Comment on above: Cellulitis of left l ower extremity (Primary Dx); Surgical wound infection; Stump pain (HCC); Anxiety Start: 11-24-2022 Telephone encounter Rusty Mercado MD Work Phone: [facility] Start: 11-22-2022 End: 11-22-2022 Evaluation and management of inpatient Ach Xr Portable 1 [facility] Comment on above: Arrived Start: 11-10-2022 End: 11-27-2022 Evaluation and management of inpatient Teresa Huerta DO Work Phone: [facility] Start: 11-06-2022 End: 11-07-2022 Emergency department patient visit PREPARATION PLANT REPAIRERRona Maddox NP Work Phone: [facility]-Emergency Department Start: 02-06-2023 Telephone encounter Rusty Mercado MD Work Phone: [facility] Daryl Comment on above: Orders Start: 10-30-2022 End: 11-02-2022 Evaluation and management of inpatient Himanshu Schaefer MD Work Phone: [facility] H6 TELEMETRY Comment on above: Superficial incision al surgical site infection (Primary Dx); Abrasion of lower leg with infection, initial encounter; Cellulitis of left lower limb; Stump pain (HCC) Start: 10-30-2022 End: 10-30-2022 Evaluation and management of inpatient [facility] Vascular Inpatient 1 [facility] Vascular Lab Comment on above: Arrived Start: 10-30-2022 End: 10-30-2022 Evaluation and management of inpatient Ach Ed Xr Portable [facility] Comment on above: Arrived Start: 10-30-2022 End: 10-30-2022 Subsequent hospital visit by physician [facility] Non[facility] Comment on above: Arrived Start: 10-30-2022 ambulatory Jennifer CASEY Work Phone: [facility] Erica Comment on above: Below-knee amputatio n of left lower extremity with complication, subsequent encounter (HCC) (Primary Dx) Start: 10-30-2022 Telephone encounter Jennifer CASEY Work Phone: [facility] Erica Start: 10-23-2022 End: 10-23-2022 Office outpatient visit 40 minutes Rusty Mercado MD Work Phone: [facility] [place] Comment on above: Left leg cellulitis (Primary Dx); Infected wound Start: 10-20-2022 Non-patient / Non-visit PREPARATION PLANT REPAIRER-C Maria Dolores Maddox PREPARATION PLANT REPAIRER Work Phone: [facility] Start: 10-19-2022 Non-patient / Non-visit PREPARATION PLANT REPAIRER-C Maria Dolores Maddox PREPARATION PLANT REPAIRER Work Phone: [facility] Start: 10-18-2022 Non-patient / Non-visit PREPARATION PLANT REPAIRER-C Maria Dolores Maddox PREPARATION PLANT REPAIRER Work Phone: [facility] Start: 10-17-2022 Telephone encounter Amberly simons MD Work Phone: [facility] Clinical Communication Comment on above: admitted Start: 10-17-2022 Non-patient / Non-visit PREPARATION PLANT REPAIRER-C Maria Dolores Maddox PREPARATION PLANT REPAIRER Work Phone: [facility] Start: 10-16-2022 End: 10-16-2022 Non-patient / Non-visit PREPARATION PLANT REPAIRER-C Oj Maddox PREPARATION PLANT REPAIRER Work Phone: [facility] Start: 10-16-2022 End: 10-20-2022 Evaluation and management of inpatient PREPARATION PLANT REPAIRER-Shira Maddox PREPARATION PLANT REPAIRER Work Phone: [facility] Start: 10-04-2022 End: 10-04-2022 Patient encounter procedure PREPARATION PLANT REPAIRER-C Oj Maddox PREPARATION PLANT REPAIRER [facility] Start: 09-25-2022 Telephone encounter Rusty Mercado MD Work Phone: [facility] [place] Comment on above: Pictures sent Start: 09-10-2022 Non-patient / Non-visit PREPARATION PLANT REPAIRER-C Maria Dolores Maddox PREPARATION PLANT REPAIRER Work Phone: [facility] Start: 09-10-2022 End: 09-10-2022 Emergency department patient visit PREPARATION PLANT REPAIRER-C Oj Maddox PREPARATION PLANT REPAIRER Work Phone: [facility] Start: 09-06-2022 ambulatory OJ DIXON SUPERVISOR HAND SILVERING - DATA MINING ANALYST Facility:B Start: 09-05-2022 Non-patient / Non-visit PREPARATION PLANT REPAIRER-C Maria Dolores Maddox PREPARATION PLANT REPAIRER Work Phone: [facility] Start: 09-04-2022 Non-patient / Non-visit PREPARATION PLANT REPAIRER-C Maria Dolores Maddox PREPARATION PLANT REPAIRER Work Phone: [facility] Start: 09-04-2022 Non-patient / Non-visit PREPARATION PLANT REPAIRER-C Maria Dolores Maddox PREPARATION PLANT REPAIRER Work Phone: [facility] Start: 09-03-2022 Non-patient / Non-visit PREPARATION PLANT REPAIRER-C Maria Dolores Maddox PREPARATION PLANT REPAIRER Work Phone: [facility] Start: 09-03-2022 End: 09-03-2022 Non-patient / Non-visit PREPARATION PLANT REPAIRER-C Oj Maddox PREPARATION PLANT REPAIRER Work Phone: [facility] Start: 09-03-2022 Non-patient / Non-visit PREPARATION PLANT REPAIRER-C Maria Dolores Maddox PREPARATION PLANT REPAIRER Work Phone: [facility] Start: 09-02-2022 Non-patient / Non-visit PREPARATION PLANT REPAIRER-C Maria Dolores Maddox PREPARATION PLANT REPAIRER Work Phone: [facility] Start: 09-02-2022 Non-patient / Non-visit PREPARATION PLANT REPAIRER-C Maria Dolores Maddox PREPARATION PLANT REPAIRER Work Phone: [facility] Start: 09-01-2022 Non-patient / Non-visit PREPARATION PLANT REPAIRER-C Maria Dolores Maddox PREPARATION PLANT REPAIRER Work Phone: [facility] Start: 09-01-2022 Non-patient / Non-visit PREPARATION PLANT REPAIRER-C Maria Dolores Maddox PREPARATION PLANT REPAIRER Work Phone: [facility] Start: 09-01-2022 Non-patient / Non-visit PREPARATION PLANT REPAIRER-C Maria Dolores Maddox PREPARATION PLANT REPAIRER Work Phone: [facility] Start: 09-01-2022 Non-patient / Non-visit PREPARATION PLANT REPAIRER-C Maria Dolores Maddox PREPARATION PLANT REPAIRER Work Phone: [facility] Start: 08-31-2022 End: 09-05-2022 Evaluation and management of inpatient [facility] Start: 08-08-2022 End: 08-09-2022 ambulatory OJ Nette MANCUSOVARSHA SUPERVISOR HAND SILVERING - DATA MINING ANALYST Facility:B Start: 07-25-2022 End: 07-26-2022 ambulatory OJ MANCUSOPKINS SUPERVISOR HAND SILVERING - DATA MINING ANALYST Facility:B Start: 07-25-2022 End: 07-25-2022 Patient encounter procedure OJ Nette VARSHA SUPERVISOR HAND SILVERING - DATA MINING ANALYST [facility] Start: 01-21-2022 End: 01-21-2022 Emergency department patient visit PREPARATION PLANT REPAIRER-Shira Maddox PREPARATION PLANT REPAIRER Work Phone: [facility] Start: 01-11-2022 End: 01-11-2022 Subsequent hospital visit by physician Amberly Schaefer MD Work Phone: [facility] Surgery Comment on above: S/P split thickness skin graft (Primary Dx) Start: 12-19-2021 End: 12-19-2021 Subsequent hospital visit by physician Amberly Schaefer MD Work Phone: [facility] Surgery Comment on above: Dehiscence of closur e of skin, sequela (Primary Dx); Infected wound Start: 11-14-2021 End: 11-14-2021 Patient encounter procedure PREPARATION PLANT REPAIRER-Shira Maddox PREPARATION PLANT REPAIRER Work Phone: [facility]Laboratory, Specimen Start: 11-13-2021 End: 11-13-2021 Emergency department patient visit Oj Maddox SUPERVISOR HAND SILVERING - DATA MINING ANALYST Work Phone: [facility] Emergency Dept Comment on above: Complication associa adam with peripherally inserted central catheter (PICC), initial encounter (Primary Dx) Start: 11-07-2021 End: 11-07-2021 Patient encounter procedure PREPARATION PLANT REPAIRER-Shira Maddox PREPARATION PLANT REPAIRER Work Phone: [facility], Specimen Start: 10-03-2021 Non-patient / Non-visit PREPARATION PLANT REPAIRER-Shira Maddox PREPARATION PLANT REPAIRER Work Phone: [facility] Start: 10-02-2021 Non-patient / Non-visit PREPARATION PLANT REPAIRER-C Maria Dolores Maddox PREPARATION PLANT REPAIRER Work Phone: [facility] Start: 10-01-2021 Non-patient / Non-visit PREPARATION PLANT REPAIRER-C Maria Dolores Maddox PREPARATION PLANT REPAIRER Work Phone: [facility] Start: 10-01-2021 End: 10-03-2021 Evaluation and management of inpatient PREPARATION PLANT REPAIRER-C Oj Maddox PREPARATION PLANT REPAIRER [facility] Start: 09-30-2021 Non-patient / Non-visit PREPARATION PLANT REPAIRER-C Maria Dolores Maddox PREPARATION PLANT REPAIRER Work Phone: [facility] Start: 09-07-2021 End: 09-07-2021 Patient encounter procedure OJ MADDOX SUPERVISOR HAND SILVERING - DATA MINING ANALYST [facility] Start: 08-04-2021 End: 08-04-2021 Subsequent hospital visit by physician Rusty Mercado MD Work Phone: [facility] Comment on above: Tear of peroneal ten don, left, subsequent encounter (Primary Dx) Start: 07-28-2021 End: 07-28-2021 Subsequent hospital visit by physician Rusty Mercado MD Work Phone: [facility] Pre-Admit Testing Comment on above: Arrived Start: 01-21-2021 End: 01-21-2021 Subsequent hospital visit by physician Rusty Mercado MD Work Phone: [facility] Comment on above: Acute left ankle arjun n Start: 08-17-2020 End: 08-18-2020 Subsequent hospital visit by physician Rusty Mercado Work Phone: [facility] TELEMETRY Comment on above: BKA stump complicati on (HCC) (Primary Dx) Start: 08-06-2020 End: 08-07-2020 Evaluation and management of inpatient Rusty Mercado Work Phone: [facility] MED SURG Comment on above: BKA stump complicati on (HCC) (Primary Dx) Start: 07-27-2020 End: 07-27-2020 Subsequent hospital visit by physician Rusty Mercado Work Phone: [facility] General Surgery Comment on above: 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 CT Scan Comment on above: Amputation of right lower extremity BKA Start: 05-03-2019 End: 05-09-2019 Evaluation and management of inpatient Teresa Fenton Work Phone: [facility] MED SURG Comment on above: Right foot infection (Primary Dx); Cellulitis of right lower extremity; Current episode of major depressive disorder without prior episode, unspecified depression episode severity Start: 12-24-2018 Patient encounter procedure RIGO SHELTON [facility] Start: 12-24-2018 End: 12-25-2018 Patient encounter procedure RIGO SHELTON [facility] Start: 12-24-2018 End: 12-24-2018 Subsequent hospital visit by physician Rigo Shelton Work Phone: [facility] Nuclear Medicine Comment on above: Arrived Start: 12-24-2018 End: 12-24-2018 Patient encounter procedure Rigo Shelton Work Phone: [facility] Nuclear Medicine Comment on above: Pseudarthrosis after fusion or arthrodesis; Arthrodesis status Start: 12-03-2018 End: 12-04-2018 Emergency department patient visit Luis Antonio Morgan Work Phone: [facility] Emergency Department Comment on above: Occluded PICC line, initial encounter (HCC) (Primary Dx); Pain of right upper extremity; Pain Start: 11-02-2018 End: 11-05-2018 Evaluation and management of inpatient RIGO SHELTON [facility] Start: 11-01-2018 End: 11-05-2018 Evaluation and management of inpatient Rigo Shelton Work Phone: [facility] Comment on above: Cellulitis of right foot (Primary Dx); FAY (obstructive sleep apnea); Pain from implanted hardware, initial encounter; Arthritis of right subtalar joint Start: 10-07-2018 End: 10-08-2018 Patient encounter procedure RIGO SHELTON [facility] Start: 08-20-2018 End: 08-24-2018 Patient encounter procedure RIGO SHELTON [facility] Start: 02-21-2018 Evaluation and management of inpatient Bry Rowland Facility:[facility] Start: 11-29-2017 End: 11-29-2017 Ambulatory RIGO SHELTON Facility:[place] Procedures Date Procedure Procedure Detail Performing Clinician Start: 05-16-2025 CT angiography of chest with contrast Dr. Louis Penn MD Work Phone: Start: 05-16-2025 Plain chest X-ray Dr. Louis Penn MD Work Phone: Start: 05-16-2025 D-dimer assay, quantitative Dr. Louis العراقي MD Work Phone: Comment on above: D-Dimer ELEVATED (>0.49): Additional connor dies and clinicalassessments are indicated to conclude diagnosis of:Deep Vein Thrombosis (DVT) or Pulmonary Embolism (PE)CRITICAL VALUE CALLED TO [id number] Bhavesh Randle.RESULTS READ BACK BY SAME. Start: 05-16-[address] Louis Penn MD Work Phone: Start: 05-14-2025 NERVE BLOCK Samemaria dolores Preston MD PhD Work Phone: Start: 05-14-2025 US GUIDED PAIN PROCEDURE Enrique Preston MD PhD Work Phone: Start: 05-08-2025 CT of chest without contrast Dr. Louis lazcano MD Work Phone: Start: 01-16-[address] Louis Penn MD Work Phone: Start: 01-14-[address] Louis Penn MD Work Phone: Start: 01-14-[address] Louis Penn MD Work Phone: Start: 01-14-2025 Legionella pneumophila antigen assay Dr. Louis Penn MD Work Phone: Start: 01-14-[address] Louis rosales MD Work Phone: Start: 01-14-2025 SARS-CoV-2, Influenza & RSV (PCR) Dr. Carmela Penn MD Work Phone: Start: 01-14-2025 End: 01-14-2025 Streptococcus pneumoniae antigen assay Dr. Louis Penn MD Work Phone: Start: 01-14-[address] Louis Penn MD Work Phone: Start: 01-14-2025 CT angiography of chest with contrast Dr. Louis Penn MD Work Phone: Start: 01-14-2025 Urnls dip stick/tablet reagent auto microscopy Dr. Louis Penn MD Work Phone: Start: 01-14-2025 Carbon dioxide measurement, partial pressure Dr. Louis Penn MD Work Phone: Start: 01-14-2025 Gases blood o2 saturation only direct merissa Dr. Louis Penn MD Work Phone: Start: 01-14-2025 Measurement of partial pressure of oxygen in blood Dr. Louis Penn MD Work Phone: Start: 01-14-[address] Louis Penn MD Work Phone: Start: 01-14-2025 Plain chest X-ray Dr. Louis Penn MD Work Phone: Start: 01-02-2024 Follow-up visit OJ MADDOX Start: 12-26-2023 Follow-up visit OJ MADDOX Start: 12-05-2023 Follow-up visit OJ MADDOX Start: 10-12-2023 Follow-up visit OJ MADDOX Start: 08-03-2023 Follow-up visit OJ MADDOX Start: 07-21-2023 Investigation of transfusion reaction PREPARATION PLANT REPAIRER-C Oj Maddox PREPARATION PLANT REPAIRER Work Phone: Start: 07-21-2023 Respiratory microbial culture PREPARATION PLANT REPAIRER-C Toni Maddox PREPARATION PLANT REPAIRER Work Phone: Start: 07-20-2023 Plain chest X-ray PREPARATION PLANT REPAIRER-C Oj Maddox PREPARATION PLANT REPAIRER Work Phone: Start: 07-11-2023 Follow-up visit OJ MADDOX Start: 07-09-2023 Follow-up visit OJ MADDOX Start: 06-18-2023 Basic metabolic 2000 panel - Serum or Plasma Rusty Mercado MD Work Phone: Start: 06-18-2023 Complete blood count with white cell differential, automated Rusty Mercado MD Work Phone: Start: 06-18-2023 Creatine kinase total Rusty Mercado MD Work Phone: Start: 06-06-2023 Basic metabolic panel calcium total Joanna DAMONC Work Phone: Start: 06-05-2023 End: 06-05-2023 Debridement bone muscle &/fascia 20 sq cm/< Rusty Mercado MD Work Phone: Start: 06-05-2023 Radiologic exam chest single view Charity Aldridge MD Work Phone: Start: 06-05-2023 Insertion picc w/rs&i 5 yr/> Shoaib greenwood SUPERVISOR HAND SILVERING - DATA MINING ANALYST Work Phone: Start: 06-05-2023 Blood typing serologic abo Farrukh Tim MD Work Phone: Start: 06-04-2023 Basic metabolic panel calcium total Gallo Castillo Work Phone: Start: 06-03-2023 Basic metabolic panel calcium total Gallo Castillo Work Phone: Start: 06-02-2023 Blood count complete automated Gallo Castillo Work Phone: Start: 06-02-2023 Drug screen quantitative vancomycin Farrukh Tim MD Work Phone: Start: 06-01-2023 Creatinine blood Gallo Castillo Work Phone: Start: 06-01-2023 Drug screen quantitative vancomycin Farrukh Tim MD Work Phone: Start: 05-31-2023 AEROBIC AND ANAEROBIC CULTURE WITH STAIN Rusty Mercado MD Work Phone: Start: 05-31-2023 Culture bacterial any source anaerobic iso&id Rusty Mercado MD Work Phone: Start: 05-31-2023 End: 05-31-2023 Debridement bone muscle &/fascia 20 sq cm/< Rusty Mercado MD Work Phone: Start: 05-31-2023 Blood typing serologic rh (d) Joanna Sandoval PA-C Work Phone: Start: 05-30-2023 Basic metabolic panel calcium total Farrukh Tim MD Work Phone: Start: 05-29-2023 AEROBIC AND ANAEROBIC CULTURE WITH STAIN Rusty Mercado MD Work Phone: Start: 05-29-2023 Culture bacterial any source anaerobic iso&id Rusty Mercado MD Work Phone: Start: 05-29-2023 End: 05-29-2023 I&d deep absc bursa/hematoma thigh/knee region Rusty Mercado MD Work Phone: Start: 05-28-2023 Follow-up visit OJ MADDOX Start: 05-22-2023 Cul bact xcpt urine blood/stool aerobic isol Rusty Mercado MD Work Phone: Start: 05-21-2023 Follow-up visit OJ MADDOX Start: 05-18-2023 Follow-up visit OJ MADDOX Start: 05-11-2023 Follow-up visit OJ MADDOX Start: 05-07-2023 Follow-up visit OJ MADDOX Start: 02-22-2023 End: 02-22-2023 Revision/rmvl peripheral/gastric npgr Fabrizio Leung MD Work Phone: Start: 12-12-2022 SARS-CoV-2 (COVID-19) Ag [Presence] in Respiratory specimen by Rapid immunoassay Art Shearer MD Work Phone: Start: 12-12-2022 Comprehensive metabolic panel Art Shearer MD Work Phone: Start: 12-10-2022 Creatinine blood Cristian Camronmanjit Hans DO Work Phone: Start: 12-08-2022 Drug screen quantitative vancomycin Cristian Jon Maxwell DO Work Phone: Start: 12-07-2022 Radiologic exam chest single view Kirsto n Call SUPERVISOR HAND SILVERING - DATA MINING ANALYST Work Phone: Start: 12-07-2022 INSERT PICC LINE Cristian Camronmanjit Hans DO Work Phone: Start: 12-07-2022 Radex shoulder complete minimum 2 views Joanna Sandoval PA-C Work Phone: Start: 12-07-2022 Radiologic exam chest single view Joanna Sandoval PA-C Work Phone: Start: 12-07-2022 Assay of troponin quantitative Joanna greenwood PA-C Work Phone: Start: 12-07-2022 Ecg routine ecg w/least 12 lds trcg only w/o i&r Joanna Sandoval PA-C Work Phone: Start: 12-07-2022 Bacteria identified in Blood by Culture Joanna Sandoval PA-C Work Phone: Start: 12-07-2022 Basic metabolic panel calcium total Maximino Aceves MD Work Phone: Start: 12-06-2022 Bacteria identified in Blood by Culture Joanna Sandoval PA-C Work Phone: Start: 12-06-2022 Basic metabolic panel calcium total Matar Matar Work Phone: Start: 12-05-2022 AEROBIC AND ANAEROBIC CULTURE WITH STAIN Rusty Mercado MD Work Phone: Start: 12-05-2022 Culture bacterial any source anaerobic iso&id Rusty Mercado MD Work Phone: Start: 12-05-2022 End: 12-05-2022 Amp thigh thru femur sec closure/scar revision Rusty Mercado MD Work Phone: Start: 12-05-2022 Basic metabolic panel calcium total Matar Matar Work Phone: Start: 12-04-2022 Drug screen quantitative vancomycin Kevan Parekh MD Work Phone: Start: 12-04-2022 Prothrombin time Dudley Holt MD Work Phone: Start: 12-03-2022 Radex shoulder complete minimum 2 views Elise Magy Warren MD Work Phone: Start: 12-03-2022 Cul bact xcpt urine blood/stool aerobic isol Mariia Mar PA-C Work Phone: Start: 12-03-2022 Bacteria identified in Blood by Culture Mariia Mar PA-C Work Phone: Start: 12-03-2022 Bacteria identified in Blood by Culture Mariia Mar PA-C Work Phone: Start: 12-03-2022 End: 12-03-2022 Basic metabolic panel calcium total Mariia CASEY-Shira Work Phone: Start: 12-03-2022 C-reactive protein Kevan Parekh MD Work Phone: Start: 12-03-2022 End: 12-03-2022 Radiologic examination femur minimum 2 views Kevan Parekh MD Work Phone: Start: 11-27-2022 Dup-scan xtr veins unilateral/limited study Lulú Zhao MD Work Phone: Start: 11-27-2022 Basic metabolic panel calcium total Maximino Aceves MD Work Phone: Start: 11-26-2022 Basic metabolic panel calcium total Maximino Aceves MD Work Phone: Start: 11-25-2022 Dup-scan xtr veins unilateral/limited study Lulú Zhao MD Work Phone: Start: 11-25-2022 Basic metabolic panel calcium total Maximino Aceves MD Work Phone: Start: 11-25-2022 Manual differential performed [Presence] in Blood Maximino Aceves MD Work Phone: Start: 11-24-2022 Basic metabolic panel calcium total Maximino Aceves MD Work Phone: Start: 11-24-2022 Manual differential performed [Presence] in Blood Maximino Aceves MD Work Phone: Start: 11-23-2022 Dup-scan xtr veins unilateral/limited study Mamta Toal Work Phone: Start: 11-23-2022 Basic metabolic panel calcium total Maximino Aceves MD Work Phone: Start: 11-23-2022 Manual differential performed [Presence] in Blood Maximino Aceves MD Work Phone: Start: 11-22-2022 Radiologic exam chest single view Kirsto n Call SUPERVISOR HAND SILVERING - DATA MINING ANALYST Work Phone: Start: 11-22-2022 Bacteria identified in Blood by Culture Maged Wilder MD Work Phone: Start: 11-22-2022 Blood count complete auto&auto difrntl wbc Maximino Aceves MD Work Phone: Start: 11-22-2022 Basic metabolic panel calcium total Maximino Aceves MD Work Phone: Start: 11-21-2022 End: 11-21-2022 Debridement subcutaneous tissue 20 sq cm/< Rusty Mercado MD Work Phone: Start: 11-21-2022 Basic metabolic panel calcium total Maximino Aceves MD Work Phone: Start: 11-21-2022 Blood typing serologic rh (d) Joanna Sandoval PA-C Work Phone: Start: 11-20-2022 Basic metabolic panel calcium total Maximino Aceves MD Work Phone: Start: 11-20-2022 Blood occult peroxidase actv qual feces 1-3 spec Johnathon Chowdhury MD Work Phone: Start: 11-20-2022 Basic metabolic panel calcium total Maximino Aceves MD Work Phone: Start: 11-19-2022 Basic metabolic panel calcium total Maximino Aceves MD Work Phone: Start: 11-18-2022 Glucose quantitative blood xcpt reagent strip César Schneider MD Work Phone: Start: 11-18-2022 Glucose quantitative blood xcpt reagent strip César Schneider MD Work Phone: Start: 11-18-2022 Glucose quantitative blood xcpt reagent strip César Schneider MD Work Phone: Start: 11-18-2022 Basic metabolic panel calcium total Maximino Aceves MD Work Phone: Start: 11-17-2022 Glucose quantitative blood xcpt reagent strip César Schneider MD Work Phone: Start: 11-17-2022 Glucose quantitative blood xcpt reagent strip César Schneider MD Work Phone: Start: 11-17-2022 Glucose quantitative blood xcpt reagent strip César Schneider MD Work Phone: Start: 11-17-2022 Basic metabolic panel calcium total Maximino Aceves MD Work Phone: Start: 11-16-2022 AEROBIC AND ANAEROBIC CULTURE WITH STAIN Rusty Mercado MD Work Phone: Start: 11-16-2022 Culture bacterial any source anaerobic iso&id Rusty Mercado MD Work Phone: Start: 11-16-2022 End: 11-16-2022 Incision & drainage leg/ankle abscess/hematoma Rusty Mercado MD Work Phone: Start: 11-16-2022 Prothrombin time David Gray MD Work Phone: Start: 11-15-2022 Basic metabolic panel calcium total Joanna Sandoval PA-C Work Phone: Start: 11-15-2022 Blood count complete automated Joanna greewnood PA-C Work Phone: Start: 11-14-2022 End: 11-14-2022 Incision & drainage leg/ankle abscess/hematoma Rusty Mercado MD Work Phone: Start: 11-14-2022 Antibody screen rbc each serum technique Jozef Sheth MD Work Phone: Start: 11-13-2022 Blood count complete automated Kimo Mary Stevens MD Work Phone: Start: 11-12-2022 Basic metabolic panel calcium total Kimo Stevens MD Work Phone: Start: 11-11-2022 AEROBIC AND ANAEROBIC CULTURE WITH STAIN Rusty Mercado MD Work Phone: Start: 11-11-2022 Culture bacterial any source anaerobic iso&id Rusty Mercado MD Work Phone: Start: 11-11-2022 End: 11-11-2022 Debridement bone muscle &/fascia 20 sq cm/< Rusty Mercado MD Work Phone: Start: 11-11-2022 Basic metabolic panel calcium total Kimo Stevens MD Work Phone: Start: 11-10-2022 Basic metabolic panel calcium total Bj Call MD Work Phone: Start: 11-10-2022 C-reactive protein Bj Call MD Work Phone: Start: 11-10-2022 Radiologic examination femur minimum 2 views Bj Call MD Work Phone: Start: 11-10-2022 Radiologic exam chest single view Bj Call MD Work Phone: Start: 11-10-2022 Ecg routine ecg w/least 12 lds i&r only Bj Call MD Work Phone: Start: 11-02-2022 SARS-CoV-2 (COVID-19) Ag [Presence] in Respiratory specimen by Rapid immunoassay Vinh Collins DO Work Phone: Start: 11-02-2022 Basic metabolic panel calcium total Vinh Collins DO Work Phone: Start: 11-02-2022 Manual differential performed [Presence] in Blood Vinh Collins DO Work Phone: Start: 11-01-2022 Basic metabolic panel calcium total Vinh Collins DO Work Phone: Start: 10-31-2022 Blood count hematocrit Maged cochran MD Work Phone: Start: 10-31-2022 Compatibility each unit electronic Farrukh Tim MD Work Phone: Start: 10-31-2022 End: 10-31-2022 TRANSFUSE RED BLOOD CELLS Jenniffer Boswell SUPERVISOR HAND SILVERING - RN OUTPATIENT SURGERY Work Phone: Start: 10-31-2022 End: 10-31-2022 Amputation thigh through femur any level Rusty Mercado MD Work Phone: Start: 10-30-2022 Non-invasive physiologic study extremity 3 levls Joanna Sandoval PA-C Work Phone: Start: 10-30-2022 End: 10-30-2022 Radiologic examination tibia & fibula 2 views Joanna Mariama RODRÍGUEZ Work Phone: Start: 10-30-2022 Radiologic exam chest single view Joanna Sandoval CARMELA-Shira Work Phone: Start: 10-30-2022 Basic metabolic panel calcium total Himanshu Schaefer MD Work Phone: Start: 10-30-2022 C-reactive protein Himanshu Schaefer MD Work Phone: Start: 10-30-2022 Ecg routine ecg w/least 12 lds trcg only w/o i&r Himanshu Schaefer MD Work Phone: Start: 10-18-2022 CT of lower limb with contrast PREPARATION PLANT REPAIRER-C Trever Maddox PREPARATION PLANT REPAIRER Work Phone: Start: 10-16-2022 Plain X-ray of tibia and fibula PREPARATION PLANT REPAIRER-C Kd Maddox PREPARATION PLANT REPAIRER Work Phone: Start: 10-16-2022 Radiography of ankle PREPARATION PLANT REPAIRER-C Oj Maddox PREPARATION PLANT REPAIRER Work Phone: Start: 09-10-2022 Plain chest X-ray PREPARATION PLANT REPAIRER-C Oj Maddox PREPARATION PLANT REPAIRER Work Phone: Start: 08-31-2022 End: 08-31-2022 Plain chest X-ray PREPARATION PLANT REPAIRER-C Oj Maddox PREPARATION PLANT REPAIRER Work Phone: Start: 08-31-2022 Plain X-ray of femur Start: 08-31-2022 Plain X-ray of tibia and fibula Start: 08-31-2022 Plain chest X-ray Start: 08-31-2022 CT angiography of chest with contrast Start: 08-31-2022 Plain chest X-ray Start: 01-21-2022 CT of head without contrast PREPARATION PLANT REPAIRER-C Oj Maddox PREPARATION PLANT REPAIRER Work Phone: Start: 01-21-2022 Plain chest X-ray PREPARATION PLANT REPAIRER-C Oj Jenkinskins PREPARATION PLANT REPAIRER Work Phone: Start: 01-21-2022 Plain X-ray of tibia and fibula PREPARATION PLANT REPAIRER-C Kd Maddox PREPARATION PLANT REPAIRER Work Phone: Start: 01-21-2022 SARS-CoV-2 & FLU Antigen (Rapid) PREPARATION PLANT REPAIRER-C Charlie Maddox PREPARATION PLANT REPAIRER Work Phone: Start: 01-11-2022 OPERATIVE REPORT Physician Generic Start: 01-11-2022 Gluc bld gluc mntr dev cleared fda spec home use Amberly Schaefer MD Work Phone: Start: 12-19-2021 OPERATIVE REPORT Physician Generic Start: 10-02-2021 Influenza Types A,B Direct FA (MCKAYLA) PREPARATION PLANT REPAIRER-C Oj Maddox PREPARATION PLANT REPAIRER Work Phone: Start: 09-30-2021 CT angiography of chest with contrast PREPARATION PLANT REPAIRER-C Oj Maddox PREPARATION PLANT REPAIRER Work Phone: Start: 09-30-2021 Plain chest X-ray PREPARATION PLANT REPAIRER-C Oj Maddox PREPARATION PLANT REPAIRER Work Phone: Start: 09-24-2021 H/O: hysterectomy History of hysterectomy Oj Mancusopkins SUPERVISOR HAND SILVERING - DATA MINING ANALYST Work Phone: Start: 09-24-2021 History of tonsillectomy History of tonsillectomy Oj Maddox SUPERVISOR HAND SILVERING - DATA MINING ANALYST Work Phone: Start: 08-04-2021 OPERATIVE REPORT 3m Scanning Start: 07-28-2021 Ecg routine ecg w/least 12 lds w/i&r Michael Sepulveda MD Work Phone: Start: 07-28-2021 Basic metabolic panel calcium total Michaelkings Sepulveda MD Work Phone: Start: 08-18-2020 BASIC METABOLIC PANEL W/ REFLEX TO MG FOR LOW K Yousuf Gardner Work Phone: Start: 08-18-2020 Blood count complete auto&auto difrntl wbc Yousuf Gardner Work Phone: Start: 08-17-2020 OPERATIVE REPORT 3m Scanning Start: 08-07-2020 OPERATIVE REPORT 3m Scanning Start: 08-07-2020 Urine test visual color cmprsn meths Gallo Trent Work Phone: Start: 08-06-2020 Basic metabolic panel calcium total Gallo Trent Work Phone: Start: 08-06-2020 Blood count complete automated Gallo Trent Work Phone: Start: 08-06-2020 Blood typing serologic abo Farrukh Tim Work Phone: Start: 08-06-2020 Prothrombin time Gallo Trent Work Phone: Start: 08-06-2020 Radiologic exam chest single view Alexan Mckinnon Work Phone: Start: 08-06-2020 Radiologic examination tibia & fibula 2 views Gallo Trent Work Phone: Start: 07-27-2020 OPERATIVE REPORT 3m Scanning Start: 07-27-2020 Ecg routine ecg w/least 12 lds w/i&r Vidya Aguirre Work Phone: Start: 07-27-2020 Basic metabolic panel calcium total Vidya Aguirre Work Phone: Start: 07-27-2020 Blood count hemoglobin Vidya Aguirre Work Phone: Start: 07-08-2020 OPERATIVE REPORT 3m Scanning Start: 05-09-2019 Basic metabolic panel calcium total Hay Fabricio Work Phone: Start: 05-09-2019 Blood count complete auto&auto difrntl wbc Hay Fabricio Work Phone: Start: 05-08-2019 Basic metabolic panel calcium total Hay Fabricio Work Phone: Start: 05-08-2019 Blood count complete auto&auto difrntl wbc Hay Fabricio Work Phone: Start: 05-07-2019 Basic metabolic panel calcium total Hay Fabricio Work Phone: Start: 05-07-2019 Blood count complete auto&auto difrntl wbc Hay Fabricio Work Phone: Start: 05-06-2019 OPERATIVE REPORT 3m Scanning Start: 05-06-2019 Level iv surg pathology gross&microscopic exam Rusty Mercado Work Phone: Start: 05-06-2019 Basic metabolic panel calcium total Hay Fabricio Work Phone: Start: 05-06-2019 Blood count complete auto&auto difrntl wbc Hay Fabricio Work Phone: Start: 05-06-2019 Blood typing serologic abo Jace A Chaparro l Work Phone: Start: 05-05-2019 Creatine kinase total Tariq K Ashleigh Work Phone: Start: 05-05-2019 Drug screen quantitative vancomycin Deny Velasquez Work Phone: Start: 05-05-2019 Basic metabolic panel calcium total Hay Fabricio Work Phone: Start: 05-05-2019 Blood count complete auto&auto difrntl wbc Hay Fabricio Work Phone: Start: 05-04-2019 Procalcitonin (pct) Deny Velasquez Work Phone: Start: 05-04-2019 Assay of magnesium Charles Gagnon Work Phone: Start: 05-04-2019 BASIC METABOLIC PANEL W/ REFLEX TO MG FOR LOW K Charles Gagnon Work Phone: Start: 05-04-2019 Blood count complete automated Charles abdi Work Phone: Start: 05-03-2019 Blood count complete automated Pauline R Genie Work Phone: Start: 05-03-2019 C-reactive protein Pauline R Genie Work Phone: Start: 05-03-2019 Sedimentation rate rbc automated Pauline R Genie Work Phone: Start: 05-03-2019 Radex foot complete minimum 3 views Pauline R Genie Work Phone: Start: 12-04-2018 Dup-scan xtr veins unilateral/limited study Luis Antonio Morgan Work Phone: Start: 12-04-2018 HILL TOP Luis Antonio Morgan Work Phone: Start: 12-04-2018 LIGHT GREEN TOP Luis Antonio Morgan Work Phone: Start: 12-04-2018 RAINBOW DRAW Luis Antonio Morgan Work Phone: Start: 12-04-2018 Basic metabolic 2000 panel - Serum or Plasma Luis Antonio Morgan Work Phone: Start: 12-04-2018 Complete blood count with white cell differential, automated Luis Antonio Morgan Work Phone: Start: 12-04-2018 Complete blood count with white cell differential, manual Luis Antonio Morgan Work Phone: Start: 12-04-2018 INR in Platelet poor plasma by Coagulation assay Luis Antonio Morgan Work Phone: Start: 11-05-2018 Basic metabolic 2000 panel - Serum or Plasma Gagan Deluca Work Phone: Start: 11-05-2018 Complete blood count (hemogram) panel - Blood by Automated count Gagan Deluca Work Phone: Start: 11-05-2018 Magnesium [Mass/volume] in Serum or Plasma Gagan Deluca Work Phone: Start: 11-04-2018 HARDWARE REMOVAL FOOT AND ANKLE Rigo Shelton Work Phone: Start: 11-03-2018 Basic metabolic 1998 panel - Serum or Plasma Layton Montaño Work Phone: Start: 11-03-2018 LAVENDER TOP Rigo Shelton Work Phone: Start: 11-02-2018 Protein/Creatinine [Ratio] in Urine Gary Oquendo Work Phone: Start: 11-02-2018 Basic metabolic 2000 panel - Serum or Plasma Gary Oquendo Work Phone: Start: 11-02-2018 LAVENDER TOP Rigo Shelton Work Phone: Start: 11-02-2018 Magnesium [Mass/volume] in Serum or Plasma Gary Oquendo Work Phone: Start: 11-01-2018 HILL TOP Rigo Shelton Work Phone: Start: 11-01-2018 LIGHT BLUE TOP Rigo Shelton Work Phone: Start: 11-01-2018 LIGHT GREEN TOP Rigo Shelton Work Phone: Start: 11-01-2018 PINK TOP Rigo Shelton Work Phone: Start: 11-01-2018 Basic metabolic 2000 panel - Serum or Plasma Lupis Lund Work Phone: Start: 11-01-2018 C reactive protein [Mass/volume] in Serum or Plasma Lupis Lund Work Phone: Start: 11-01-2018 Complete blood count (hemogram) panel - Blood by Automated count Lupis Lund Work Phone: Start: 11-01-2018 Erythrocyte sedimentation rate by Westergren method Lupis Lund Work Phone: Start: 06-10-2018 Esophagogastroduodenoscopy OJ MOSLEY SUPERVISOR HAND SILVERING - DATA MINING ANALYST Start: 08-30-2016 Colonoscopy Ach 1 Start: 08-30-2016 Colonoscopy OJ MADDOX SUPERVISOR HAND SILVERING - DATA MINING ANALYST Abdominal hysterectomy TONI ANTWAN MADDOX SUPERVISOR HAND SILVERING - DATA MINING ANALYST Abdominoplasty and liposuction OJ MADDOX SUPERVISOR HAND SILVERING - DATA MINING ANALYST Arthroplasty of knee OJ MADDOX SUPERVISOR HAND SILVERING - DATA MINING ANALYST Comment on above: LEFT Bacteria identified in Blood by Culture PREPARATION PLANT REPAIRER-C Oj Maddox PREPARATION PLANT REPAIRER Work Phone: Bacteria identified in Blood by Culture PREPARATION PLANT REPAIRER-C Oj Maddox PREPARATION PLANT REPAIRER Work Phone: Bacteria identified in Blood by Culture PREPARATION PLANT REPAIRER-C Oj Maddox PREPARATION PLANT REPAIRER Work Phone: Documentation of pas t medical history OJ MADDOX SUPERVISOR HAND SILVERING - DATA MINING ANALYST Comment on above: PAIN STIMULATOR IMPLANTED RIGHT HIP/BUTT OCK; AT [facility]; APPROX 2010 Entire knee region ( body structure) OJ MADDOX SUPERVISOR HAND SILVERING - DATA MINING ANALYST Comment on above: LEFT ft (qualifier value) OJ MADDOX SUPERVISOR HAND SILVERING - DATA MINING ANALYST Comment on above: multiple, both feet H/O: hysterectomy History of hysterectomy( Confirmed ) OJ MADDOX SUPERVISOR HAND SILVERING - DATA MINING ANALYST H/O: hysterectomy History of hysterectomy PREPARATION PLANT REPAIRER-C Oj Maddox PREPARATION PLANT REPAIRER Work Phone: H/O: surgery S/P split thickn ess skin graft Amberly Schaefer MD Work Phone: History of reduction of breast H x of breast reduction, elective PREPARATION PLANT REPAIRER-C Oj Maddox PREPARATION PLANT REPAIRER Work Phone: History of tonsillectomy History of tonsillectomy PREPARATION PLANT REPAIRER-C Oj Maddox PREPARATION PLANT REPAIRER Work Phone: Investigation of tra nsfusion reaction PREPARATION PLANT REPAIRER-C Oj Maddox PREPARATION PLANT REPAIRER Work Phone: Investigation of tra nsfusion reaction PREPARATION PLANT REPAIRER-C Oj Maddox PREPARATION PLANT REPAIRER Work Phone: Investigation of tra nsfusion reaction PREPARATION PLANT REPAIRER-C Oj Maddox PREPARATION PLANT REPAIRER Work Phone: Microbial culture, routine N P-C Oj Maddox PREPARATION PLANT REPAIRER Work Phone: Microbial culture, routine N P-C Oj Maddox PREPARATION PLANT REPAIRER Work Phone: Microbial culture, routine N P-C Oj Maddox PREPARATION PLANT REPAIRER Work Phone: Reduction mammoplasty, bilateral OJ MADDOX SUPERVISOR HAND SILVERING - DATA MINING ANALYST Respiratory microbial culture PREPARATION PLANT REPAIRER-C Oj Maddox PREPARATION PLANT REPAIRER Work Phone: Respiratory microbial culture PREPARATION PLANT REPAIRER-C Oj Maddox PREPARATION PLANT REPAIRER Work Phone: SARS-CoV-2 & FLU Antigen (Rapid) PREPARATION PLANT REPAIRER-C Oj Maddox PREPARATION PLANT REPAIRER Work Phone: SARS-CoV-2 & FLU Antigen (Rapid) PREPARATION PLANT REPAIRER-C Oj Maddox PREPARATION PLANT REPAIRER Work Phone: Stimulator, device ( physical object) OJ MADDOX SUPERVISOR HAND SILVERING - DATA MINING ANALYST Urine culture PREPARATION PLANT REPAIRER-C Oj Maddox PREPARATION PLANT REPAIRER Work Phone: Urine culture PREPARATION PLANT REPAIRER-C Oj Maddox PREPARATION PLANT REPAIRER Work Phone: Plan of Treatment Date Care Activity Detail Author Start: 08-30-2026 Screening for malignant neoplasm of colon [facility] Start: 11-17-2025 Diabetes mellitus screening Diabetes Screening [facility] Start: 07-08-2025 End: 07-08-2025 Patient encounter procedure 07/08/2025 11:00 AM EDT Infusion [facility] [address] [place] [address] [facility] Start: 06-17-2025 End: 06-17-2025 Patient encounter procedure 06/17/2025 11:00 AM EDT Infusion [facility] [address] [place] [address] [facility] Start: 06-01-2025 Influenza vaccination Influenza Vaccine (#1) [facility] Start: 05-16-2025 [facility] Start: 05-16-2025 [facility] Start: 05-14-2025 End: 05-14-2025 Patient encounter procedure 05/14/2025 10:00 AM EDT Appointment [facility] [address] [place] [address] Enrique Preston [place] PhD [address] [place] [address] [facility] Start: 05-07-2025 End: 05-07-2025 Patient encounter procedure 05/07/2025 1:15 PM EDT Office Visit Hermilo Acosta [facility] [address] [place] [address] Loly Ortiz MD [address] [facility] [place] [address] Hermilo Acosta [facility] Start: 04-29-2025 End: 04-29-2026 Nerve Block Nerve Block Pain Management Routine Chronic pain of both shoulders Intractable neuropathic pain of upper extremity Expected: 04/29/2025, Expires: 04/29/2026 [facility] Work Phone: Comment on above: Expected: 04/29/2025, Expires: Start: 04-29-2025 End: 04-29-2026 US guided pain procedure US guided pain procedure Imaging Routine Chronic pain of both shoulders Intractable neuropathic pain of upper extremity Expected: 04/29/2025, Expires: 04/29/2026 [facility] Service Area Work Phone: Comment on above: Expected: 04/29/2025, Expires: Start: 01-17-2025 Patient discharge [facility] Start: 01-15-2025 [facility] Start: 01-14-2025 Bacteria identified in Blood by Culture Blood Culture [facility] Start: 01-14-2025 Bacteria identified in Urine by Culture Urine Culture [facility] Start: 01-14-2025 Blood culture Blood Culture [facility] Start: 01-14-2025 Ambulation without limitation [facility] Start: 01-14-2025 Assessment of risk of venous thromboembolism [facility] Start: 01-14-2025 Care regimes management [facility] Start: 01-14-2025 Inhalation therapy procedure [facility] Start: 01-14-2025 Insertion of catheter into peripheral vein [facility] Start: 01-14-2025 Measuring intake and output [facility] Start: 01-14-2025 Notification of physician [facility] Start: 01-14-2025 Providing care according to standard [facility] Start: 01-14-2025 Referral to service [facility] Start: 01-14-2025 End: 01-14-2025 [facility] Start: 01-14-2025 Legionella pneumophila Ag [Presence] in Urine [facility] Start: 01-14-2025 Streptococcus pneumoniae antigen assay [facility] Start: 01-14-2025 Hospital admission, emergency, from emergency room, medical nature [facility] Start: 01-14-2025 Verification routine [facility] Start: 01-14-2025 Admission procedure [facility] Start: 01-14-2025 End: 01-14-2025 [facility] Start: 01-14-2025 Continuous pulse oximetry [facility] Start: 01-14-2025 Dual pressure spontaneous ventilation support [facility] Start: 01-14-2025 [facility] Start: 2024 Pneumococcal 0-64 years Vaccine (2 of 2 - PPSV23) Pneumococcal 0-64 years Vaccine (2 of 2 - PPSV23) [facility] Start: 2024 Screening for osteoporosis Bone Density Scan [facility] Start: 06-01-2024 COVID-19 Vaccine ( season) COVID-19 Vaccine ( season) [facility] Start: 04-14-2024 End: 04-14-2024 Patient encounter procedure 04/14/2024 10:00 AM EDT Office Visit [facility] [address] [place] [address] Jani Morales MD [address] [facility] [address] [place] [id number] [facility] Start: 01-02-2024 End: 01-02-2024 Patient encounter procedure 01/02/2024 1:00 PM EDT Office Visit [facility] [address] [facility] [address] [place] [phone] Jani Morales MD [address] [facility] [address] [place] [address] [facility] Start: 12-26-2023 End: 12-26-2023 Patient encounter procedure 12/26/2023 1:00 PM EDT Office Visit [facility] [address] [facility] [address] [place] [address] Jani Morales MD [address] [facility] [address] [place] [address] [facility] Start: 12-05-2023 End: 12-05-2023 Patient encounter procedure 12/05/2023 9:30 AM EST Office Visit [facility] Orth[facility] [address] [place] [address] [address] [place] [address] Ludwin Titus MD [address] [facility] [address] [place], [place] [id number] [facility] Start: 11-20-2023 Screening for malignant neoplasm of colon [facility] Start: 11-17-2023 Diabetes mellitus screening Diabetes Screening [facility] Start: 10-12-2023 End: 10-12-2023 Patient encounter procedure 10/12/2023 3:00 PM EST Office Visit [facility] [address] [facility] [address] [place] [address] Bj Barroso MD [address] [address], [address] [place] [address] [facility] Start: 10-11-2023 End: 10-11-2024 XR Shoulder - right 2 Views XR shoulder 2+ views right Imaging Routine Chronic pain in right shoulder Expected: 10/11/2023, Expires: 10/11/2024 [facility] Work Phone: Comment on above: Expected: 10/11/2023, Expires: Start: 10-01-2023 Medicare Advantage Annual Wellness Visit Medicare Advantage Annual Wellness Visit [facility] Start: 08-03-2023 End: 08-03-2023 Patient encounter procedure 08/03/2023 1:00 PM EDT Office Visit [facility] [address] [place] [address] Rusty Mercado MD [address] [facility] [address] [place] [address] [facility] Start: 07-23-2023 Patient discharge [facility] Start: 07-22-2023 [facility] Start: 07-21-2023 Inhalation therapy procedure [facility] Start: 07-20-2023 Following clinical pathway protocol [facility] Start: 07-20-2023 Ambulation without limitation [facility] Start: 07-20-2023 Assessment of risk of venous thromboembolism [facility] Start: 07-20-2023 Consultation for treatment [facility] Start: 07-20-2023 Continuous pulse oximetry [facility] Start: 07-20-2023 Insertion of catheter into peripheral vein [facility] Start: 07-20-2023 Measuring intake and output [facility] Start: 07-20-2023 Oxygen therapy [facility] Start: 07-20-2023 Physiotherapy of chest [facility] Start: 07-20-2023 Providing care according to standard [facility] Start: 07-20-2023 Referral to occupational therapist [facility] Start: 07-20-2023 Referral to service [facility] Start: 07-20-2023 [facility] Start: 07-20-2023 Dual pressure spontaneous ventilation support [facility] Start: 07-20-2023 Hospital admission, emergency, from emergency room, medical nature [facility] Start: 07-20-2023 Verification routine [facility] Start: 07-20-2023 Admission procedure [facility] Start: 07-20-2023 [facility] Start: 07-20-2023 Respiratory Panel (PCR) Respiratory Panel (PCR) [facility] Start: 07-11-2023 End: 07-11-2023 Patient encounter procedure 07/11/2023 10:00 AM EDT Office Visit [facility] Infectious Disease [address] [place] [phone] Ember Maxwellantonio Webb, DO [address] [place], [place] [id number] [facility] Start: 06-08-2023 End: 06-08-2023 Patient encounter procedure 06/08/2023 9:30 AM EDT Office Visit [facility] [address] [facility] [address] [place] [address] Jennifer Jackson PA [address] [facility] [address] [place], [place] [id number] [facility] Start: 06-01-2023 COVID-19 Vaccine ( season) COVID-19 Vaccine ( season) [facility] Start: 06-01-2023 Influenza vaccination Influenza Vaccine (#1) [facility] Start: 05-29-2023 End: 05-29-2023 Admission to same day surgery center 05/29/2023 10:00 AM EDT - 05/29/2023 11:00 AM EDT Surgery [facility] MAIN OR [address] [facility] [place] [address] Rusty Mercado MD [address] [facility] [address] [place], [place] [phone] LEFT THIGH (ABOVE KNEE AMPUTATION) INCISION AND DRAINAGE [16006 (CPT )] [facility] OR Comment on above: LEFT THIGH (ABOVE KNEE AMPUTATION) INCIS ION AND DRAINAGE [76837 (CPT )] Start: 05-29-2023 End: 05-29-2023 I&d deep absc bursa/hematoma thigh/knee region INCISION AND DRAINAGE DEEP ABSCESS BURSA OR HEMATOMA THIGH OR KNEE 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, initial encounter (HCC) 05/29/2023 10:00 AM EDT [facility] Operating Room Start: 05-29-2023 Subsequent hospital visit by physician 05/29/2023 10:00 AM EDT Hospital Encounter [facility] MAIN OR [address] [place] [phone] Rusty Mercado MD [address] [facility] [address] [place], [place] [phone] [facility] MAIN OR Start: 05-28-2023 End: 05-28-2023 Patient encounter procedure 05/28/2023 9:30 AM EDT Office Visit [facility] [address] [facility] [address] [place] [address] Ludwin Titus MD [address] [facility] [address] [place], [place] [phone] [facility] Start: 05-25-2023 End: 05-25-2023 Patient encounter procedure 05/25/2023 2:30 PM EDT Office Visit [facility] [address] [place] [address] Rusty Mercado MD [address] [facility] [address] [place], [place] [phone] [facility] Start: 05-22-2023 End: 05-22-2023 I&d deep absc bursa/hematoma thigh/knee region INCISION AND DRAINAGE DEEP ABSCESS BURSA OR HEMATOMA THIGH OR KNEE 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, initial encounter (HCC) 05/22/2023 10:30 AM EDT [facility] Operating Room Start: 05-21-2023 End: 05-21-2023 Patient encounter procedure 05/21/2023 2:15 PM EDT Office Visit [facility] [address] [place] [address] Rusty Mercado MD [address] [facility] [address] [place], [place] [address] [facility] Start: 05-14-2023 End: 05-14-2023 Patient encounter procedure 05/14/2023 10:15 AM EDT Office Visit [facility] Orthopedics [facility] Sports Medicine [address] [place] [address] Jani Morales MD [address] [facility] [address] [place] [address] [facility] Start: 05-08-2023 End: 05-08-2023 Admission to same day surgery center 05/08/2023 11:30 AM EDT - 05/08/2023 12:30 PM EDT Surgery [facility] MAIN OR [address] [place] [address] Rusty Mercado MD [address] [facility] [address] [place] [address] LEFT THIGHT (AKA) INCISION AND DRAINAGE [69222 (CPT )] [facility] OR Comment on above: LEFT THIGHT (AKA) INCISION AND DRAINAGE [79335 (CPT )] Start: 05-08-2023 End: 05-08-2023 Anesthesia consultation 05/08/2023 11:30 AM EDT Anesthesia Event [facility] MA[facility] OR [address] [facility] [place] [phone] Elroy Jones, RN [facility] OR Start: 05-08-2023 End: 05-08-2023 I&d deep absc bursa/hematoma thigh/knee region INCISION AND DRAINAGE DEEP ABSCESS BURSA OR HEMATOMA THIGH OR KNEE 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, initial encounter ([facility]) 05/08/2023 11:30 AM EDT [facility] Operating Room Start: 05-08-2023 Subsequent hospital visit by physician 05/08/2023 11:30 AM EDT Hospital Encounter [facility] MA[facility] OR [address] [place] [facility] [place] [phone] Rusty Mercado MD [address] [facility] [address] [place] [phone] [facility] Start: 05-07-2023 End: 05-07-2023 Patient encounter procedure 05/07/2023 1:30 PM EDT Office Visit [facility] [address] [facility] [address] [place] [phone] Rusty Mercado MD [address] [facility] [address] [place], [place] [phone] [facility] Start: 04-04-2023 End: 04-04-2023 Patient encounter procedure 04/04/2023 3:00 PM EDT Office Visit [facility] [address] [facility] [address] [place] [phone] Jani Morales MD [address] [facility] [address] [place], [place] [phone] [facility] Start: 03-23-2023 End: 03-23-2023 Patient encounter procedure 03/23/2023 Office Visit Orthopedic Surgery Rusty Mercado MD [address] [facility] [address] [place] [address] [facility] Start: 03-12-2023 End: 03-12-2023 Patient encounter procedure 03/12/2023 Office Visit Sports Jani Dupont MD [address] [facility] [address] [place], [place] [phone] [facility] Start: 02-27-2023 End: 02-27-2023 Patient encounter procedure 02/27/2023 Office Visit Sports Medicine Jani Morales MD [address] [facility] [address] [place] [address] [facility] Start: 02-22-2023 End: 02-22-2023 Admission to same day surgery center 02/22/2023 Surgery Procedural Fabrizio Leung MD [address], [address] [place] [address] [employer]STIM REPLACEMENT [12487 (CPT )] [facility] [facility] Comment on above: INTERSTIM REPLACEMENT [02590 (CPT )] Start: 02-22-2023 End: 02-22-2023 Revision/rmvl peripheral/gastric npgr REVISION OR REMOVAL OF NEUROSTIMULATOR GENERATOR Unspecified complication of genitourinary prosthetic device, implant and graft, initial encounter ([facility]) 02/22/2023 10:30 AM EDT [facility] Operating Room Start: 02-22-2023 Subsequent hospital visit by physician 02/22/2023 Hospital Encounter Procedural Fabrizio Leung MD [address], [address] [place] [address] [facility] MAIN OR Start: 02-15-2023 End: 02-15-[address] [facility] Pre-Admit Testing Start: 02-14-2023 Hemoglobin A1c measurement [facility] Start: 02-12-2023 End: 02-12-2023 Patient encounter procedure [facility] Start: 01-30-2023 End: 01-30-2023 Patient encounter procedure 01/30/2023 Office Visit Sports Medicine Jani Morales MD [address] [place] [address] [facility] Start: 01-18-2023 End: 01-18-2023 Patient encounter procedure 01/18/2023 Office Visit Sports Medicine Jani Morales MD [address] [place] [address] [facility] Start: 01-17-2023 End: 01-17-2023 Patient encounter procedure 01/17/2023 Office Visit Orthopedic Surgery Rusty Mercado MD [address] [place] [address] [facility] Start: 01-16-2023 End: 01-16-2023 Patient encounter procedure 01/16/2023 Office Visit Infectious Diseases Cristian Maxwell, DO [address] [place] [id number] [facility] Infectious Disease Start: 01-15-2023 End: 01-15-2023 Patient encounter procedure 01/15/2023 Office Visit Orthopedic Surgery Rusty Mercado MD [address] [place] [address] [facility] Start: 12-20-2022 End: 12-20-2022 Patient encounter procedure 12/20/2022 Office Visit Orthopedic Surgery Jennifer Jackson PA [address] [place] [address] [facility] Start: 12-06-2022 End: 12-06-2022 ambulatory [facility] Start: 12-06-2022 End: 12-06-2022 Patient encounter procedure 12/06/2022 Office Visit Orthopedic Surgery Jennifer Jackson PA [address] [place] [id number] [facility] Start: 11-24-2022 End: 11-24-2022 Patient encounter procedure 11/24/2022 Office Visit Orthopedic Surgery Rusty Mercado MD [address] [place], [place] [id number] [facility] [place] Start: 11-21-2022 Creatinine measurement Creatinine monitoring [facility] Start: 11-21-2022 Potassium monitoring Potassium monitoring [facility] Start: 11-07-2022 Creatinine measurement Creatinine monitoring [facility] Start: 11-07-2022 Potassium monitoring Potassium monitoring [facility] Start: 11-07-2022 End: 11-07-2022 Patient encounter procedure 11/07/2022 Office Visit Orthopedic Surgery Amberly Schaefer MD [address] [place] [address] [facility]opedics [facility] Medicine [place] Start: 11-06-2022 End: 11-06-2022 Administration of blood product [facility] Start: 11-06-2022 End: 11-06-2022 Patient encounter procedure 11/06/2022 Office Visit Orthopedic Surgery Rusty Mercado MD [address] [place] [address] [facility] [place] Start: 10-31-2022 Subsequent hospital visit by physician 10/31/2022 Hospital Encounter Procedural Rusty Mercado MD [address] [place] [address] Stump pain (HCC) (Primary Dx) [facility] MAIN OR Comment on above: Stump pain (HCC) (Primary Dx) Start: 10-23-2022 End: 10-23-2022 Patient encounter procedure 10/23/2022 Office Visit Orthopedic Surgery Rusty Mercado MD [address] [place] [address] [facility] [place] Start: 10-20-2022 Patient discharge [facility] Start: 10-18-2022 Referral to service [facility] Start: 10-17-2022 Provision of activity privileges [facility] Start: 10-17-2022 Inhalation therapy procedure [facility] Start: 10-16-2022 Introduction of urinary catheter [facility] Start: 10-16-2022 Wound care [facility] Start: 10-16-2022 Oxygen therapy [facility] Start: 10-16-2022 End: 10-16-2022 Following clinical pathway protocol [facility] Start: 10-16-2022 Assessment of risk of venous thromboembolism [facility] Start: 10-16-2022 Consultation for treatment [facility] Start: 10-16-2022 Insertion of catheter into peripheral vein [facility] Start: 10-16-2022 Measuring intake and output [facility] Start: 10-16-2022 Providing care according to standard [facility] Start: 10-16-2022 Provision of activity privileges [facility] Start: 10-16-2022 Referral to occupational therapist [facility] Start: 10-16-2022 Referral to service [facility] Start: 10-16-2022 [facility] Start: 10-16-2022 Verification routine [facility] Work Phone: Start: 10-16-2022 Admission procedure [facility] Start: 10-16-2022 Patient referral to dietitian [facility] Start: 10-15-2022 End: 10-15-2022 Blood culture [facility] Start: 10-15-2022 [facility] Work Phone: Start: 09-10-2022 Troponin I measurement [facility] Work Phone: Start: 09-10-2022 [facility] Start: 09-09-2022 Blood chemistry [facility] Work Phone: Start: 09-08-2022 Blood chemistry [facility] Work Phone: Start: 09-07-2022 Blood chemistry [facility] Work Phone: Start: 09-06-2022 Blood chemistry [facility] Work Phone: Start: 09-05-2022 Patient discharge [facility] Start: 09-05-2022 Referral to service [facility] Start: 09-05-2022 [facility] Start: 09-04-2022 Removal of urinary catheter [facility] Start: 09-04-2022 [facility] Start: 09-01-2022 Airway suction technique [facility] Work Phone: Start: 09-01-2022 Respiratory therapy [facility] Start: 09-01-2022 Consultation [facility] Start: 09-01-2022 Consultation for treatment [facility] Start: 09-01-2022 Weaning from mechanically assisted ventilation [facility] Work Phone: Start: 09-01-2022 [facility] Work Phone: Start: 09-01-2022 Following clinical pathway protocol [facility] Start: 08-31-2022 Application of intermittent pneumatic compression device [facility] Start: 08-31-2022 End: 08-31-2022 Airway suction technique [facility] Work Phone: Start: 08-31-2022 Assessment of risk of venous thromboembolism [facility] Start: 08-31-2022 Assessment using assessment scale [facility] Work Phone: Start: 08-31-2022 Bacterial nucleic acid assay [facility] Work Phone: Start: 08-31-2022 Care regimes management [facility] Start: 08-31-2022 Consultation [facility] Start: 08-31-2022 Continuous pulse oximetry [facility] Work Phone: Start: 08-31-2022 Elevation of affected extremity [facility] Start: 08-31-2022 Elevation of head of bed [facility] Start: 08-31-2022 Fall prevention [facility] Start: 08-31-2022 Incentive spirometry [facility] Work Phone: Start: 08-31-2022 Insertion of catheter into peripheral vein [facility] Start: 08-31-2022 Measuring intake and output [facility] Start: 08-31-2022 Mouth care [facility] Start: 08-31-2022 Notification of physician [facility] Start: 08-31-2022 Oxygen therapy [facility] Start: 08-31-2022 Providing care according to standard [facility] Start: 08-31-2022 Provision of activity privileges [facility] Start: 08-31-2022 Referral to occupational therapist [facility] Start: 08-31-2022 Referral to service [facility] Start: 08-31-2022 Tracheostomy care [facility] Work Phone: Start: 08-31-2022 Trial for daily interruption of sedation during mechanically assisted ventilation [facility] Work Phone: Start: 08-31-2022 Wound care [facility] Start: 08-31-2022 End: 09-01-2022 [facility] Start: 08-31-2022 Respiratory therapy [facility] Start: 08-31-2022 Diagnostic radiography of abdomen Abdomen Single View [facility] Work Phone: Start: 08-31-2022 XR Abdomen Single view [facility] Work Phone: Start: 08-31-2022 Creatine kinase [Enzymatic activity/volume] in Serum or Plasma [facility] Work Phone: Start: 08-31-2022 Triglycerides measurement [facility] Work Phone: Start: 08-31-2022 Plain chest X-ray Chest 1 View (Portable) [facility] Work Phone: Start: 08-31-2022 XR Chest Single view [facility] Work Phone: Start: 08-31-2022 Continuous pulse oximetry [facility] Work Phone: Start: 08-31-2022 Blood culture [facility] Work Phone: Start: 08-31-2022 End: 08-31-2022 Following clinical pathway protocol [facility] Start: 08-31-2022 Verification routine [facility] Work Phone: Start: 08-31-2022 Admission procedure [facility] Start: 08-31-2022 Blood culture [facility] Work Phone: Start: 07-28-2022 Creatinine measurement Creatinine monitoring [facility] Work Phone: Start: 07-28-2022 Potassium monitoring Potassium monitoring [facility] Work Phone: Start: 06-01-2022 Influenza vaccination Influenza Vaccine (#1) [facility] [employer] ([facility]ja mi) Start: 01-21-2022 Bacteria identified in Blood by Culture Blood Culture [facility] Work Phone: Start: 01-21-2022 Bacteria identified in Urine by Culture Urine Culture [facility] Work Phone: Start: 01-21-2022 Microscopic observation [Identifier] in Unspecified specimen by Gram stain Gram Stain [facility] Work Phone: Start: 01-21-2022 Wound Culture Wound Culture [facility] Work Phone: Start: 01-17-2022 End: 01-17-2022 Patient encounter procedure 01/17/2022 Office Visit Orthopedic Surgery Diana Tang PA-C [address] [place], [place] [id number] [facility] [place] Start: 12-29-2021 End: 12-29-2021 Patient encounter procedure 12/29/2021 Office Visit Orthopedic Surgery Amberly Schaefer MD [address] [place], [place] [address] [facility] [place] Start: 11-18-2021 End: 11-18-2021 Patient encounter procedure 11/18/2021 Office Visit Orthopedic Surgery Rusty Mercado MD [address] [place], [place] [id number] [facility] [place] Start: 11-14-2021 End: 11-14-2021 Patient encounter procedure 11/14/2021 Office Visit Orthopedic Surgery Charles Maxwell PA-C [address] [place], [place] [id number] [facility] [place] Start: 08-19-2021 End: 08-19-2021 Patient encounter procedure 08/19/2021 Office Visit Orthopedic Surgery Rusty Mercado MD [address] [place] [address] [phone] [facility] [place] Start: 08-18-2021 Creatinine measurement Creatinine monitoring [facility] [place] Start: 08-18-2021 Potassium monitoring Potassium monitoring [facility] [place], [place] Start: 08-12-2021 End: 08-12-2021 Patient encounter procedure 08/12/2021 Office Visit Orthopedic Surgery Rusty Mercado MD [address] [place] [address] [phone] [facility] [place] Start: 08-06-2021 Creatinine measurement Creatinine monitoring [facility] [place] Start: 08-06-2021 Potassium monitoring Potassium monitoring [facility] [place], [place] Start: 08-04-2021 End: 08-04-2021 Patient encounter procedure 08/04/2021 Appointment General Surgery Rusty Mercado MD [address] [place] [address] [phone] [facility] Start: 07-27-2021 COVID-19 Vaccine (3 - Booster for Moderna series) COVID-19 Vaccine (3 - Booster for Moderna series) [facility] Start: 06-01-2021 Influenza vaccination Flu vaccine (#1) [facility] Start: 04-21-2021 COVID-19 Vaccine (3 - Booster for Moderna series) COVID-19 Vaccine (3 - Booster for Moderna series) [facility] Start: 04-21-2021 COVID-19 Vaccine (3 - Moderna series) COVID-19 Vaccine (3 - Moderna series) [facility] Start: 04-21-2021 [facility] Start: 02-10-2021 End: 02-10-2021 Patient encounter procedure 02/10/2021 Office Visit Orthopedic Surgery Charles Maxwell PA-C [address] [place] [address] [phone] [facility] [place] Start: 08-13-2020 End: 08-13-2020 Office Visit 08/13/2020 Office Visit Orthopedic Surgery Rusty Mercado MD [address] [place] [address] [phone] [facility] [place] Start: 07-27-2020 End: 07-27-2020 Appointment 07/27/2020 Appointment General Surgery Rusty Mercado MD [address] [place] [address] [phone] [facility] General [facility] Start: 07-08-2020 End: 07-08-2020 Appointment 07/08/2020 Appointment General Surgery Fabrizio Leung MD [address], [address] [place] [address] [phone] [facility] General Surgery Start: 06-04-2020 End: 06-04-2020 Office Visit 06/04/2020 Office Visit Urogynecology Fabrizio Leung MD [address], [address] [place] [address] [phone] [facility] Urogynecology [place] Start: 06-01-2020 Influenza vaccination Flu vaccine (#1) [place], [place] Start: 05-09-2020 Creatinine measurement Creatinine monitoring [facility] [place], [place] Start: 05-09-2020 Potassium monitoring Potassium monitoring [facility] [place] Start: 05-08-2020 Creatinine monitoring Creatinine monitoring [place], [place] Start: 05-08-2020 Potassium monitoring Potassium monitoring [facility], [place] Start: 03-31-2020 A1C test (Diabetic or Prediabetic) A1C test (Diabetic or Prediabetic) [place], [place] Start: 03-31-2020 HbA1c (Bld) [Mass fraction] A1C test (Diabetic or Prediabetic) [place] Start: 03-31-2020 Hemoglobin A1c measurement A1C test (Diabetic or Prediabetic) [facility] Start: 2019 RSV High Risk: (Elderly (60+) or Population) (1 - Risk 60-74 years 1-dose series) RSV High Risk: (Elderly (60+) or Population) (1 - Risk 60-74 years 1-dose series) [facility] Start: 2019 RSV Immunization aged 60 or older (1 - 1-dose 60+ series) RSV Immunization aged 60 or older (1 - 1-dose 60+ series) [facility] Start: 06-01-2019 Influenza vaccination Flu vaccine (#1) [place] Start: 04-09-2019 Annual Wellness Visit (AWV) Annual Wellness Visit (AWV) [facility] Start: 10-01-2018 Pneumococcal 0-64 years Vaccine (2 - PCV) Pneumococcal 0-64 years Vaccine (2 - PCV) [facility] Start: 10-01-2018 Pneumococcal Vaccine: Pediatrics (0 to 5 Years) and At-Risk Patients (6 to 64 Years) (2 - PCV) Pneumococcal Vaccine: Pediatrics (0 to 5 Years) and At-Risk Patients (6 to 64 Years) (2 - PCV) [facility] Start: 10-01-2018 Pneumococcal Vaccine: Pediatrics (0 to 5 Years) and At-Risk Patients (6 to 64 Years) (2 of 2 - PCV) Pneumococcal Vaccine: Pediatrics (0 to 5 Years) and At-Risk Patients (6 to 64 Years) (2 of 2 - PCV) [facility] Start: 10-01-2018 [facility] Start: 06-01-2018 Influenza vaccination given SEQUENTIAL INFLUENZA VACCINE (#1) [facility] Start: 2009 Breast cancer screen Breast cancer screen [place], [place] Start: 2009 Colon cancer screen colonoscopy Colon cancer screen colonoscopy [place] Start: 2009 Screening for malignant neoplasm of breast Breast cancer screen [facility] Start: 2009 Screening for malignant neoplasm of colon Colon cancer screen colonoscopy [place] Start: 2009 Shingles Vaccine (1 of 2) Shingles Vaccine (1 of 2) [facility] Start: 2009 Zoster Vaccines (1 of 2) Zoster Vaccines (1 of 2) [facility] Start: 2009 [facility] Start: 2004 Screening for malignant neoplasm of colon [facility] Start: 1999 Lipid panel Lipid screen [facility] Start: 1999 Lipid screen Lipid screen [place], [place] Start: 1999 Screening for malignant neoplasm of breast [facility] Start: 1981 DTaP/Tdap/Td Vaccines (1 - Tdap) DTaP/Tdap/Td Vaccines (1 - Tdap) [facility] Start: 1980 Cervical cancer screen Cervical cancer screen [place], [place] Start: 1980 Screening for malignant neoplasm of cervix [facility] Start: 1978 DTaP/Tdap/Td vaccine (1 - Tdap) DTaP/Tdap/Td vaccine (1 - Tdap) [facility] Start: 1978 DTaP/Tdap/Td Vaccines (1 - Tdap) DTaP/Tdap/Td Vaccines (1 - Tdap) [facility] Start: 1978 Pneumococcal vaccination Pneumococcal Vaccine (1 of 2 - PCV) [facility] Start: 1978 Urine screening for protein [facility] Start: 1978 [facility] Start: 1977 Diabetes mellitus screening Diabetes Screening [facility] Start: 1977 Hepatitis C screening [facility] Start: 1975 COVID-19 Vaccine (1) COVID-19 Vaccine (1) [facility] Work Phone: Start: 1974 HIV screen HIV screen [place], [place] Start: 1974 HIV screening HIV screen [facility] Start: 1971 COVID-19 Vaccine (1) COVID-19 Vaccine (1) [facility] Work Phone: Start: 1971 Depression Monitoring Depression Monitoring [facility] Start: 1971 Depresssion Monitoring Depresssion Monitoring [facility] Start: [address] [facility] Start: [address] [facility] Start: [address] [facility] Start: 1964 COVID-19 Vaccine (1) COVID-19 Vaccine (1) [facility] Start: 1960 MMR Vaccines (1 of 1 - Standard series) MMR Vaccines (1 of 1 - Standard series) [facility] Start: 1960 [facility] Start: 1959 Annual wellness visit [facility] Start: 1959 Creatinine measurement Creatinine Level [facility] Start: 1959 Echocardiography Echocardiogram [facility] Start: 1959 Hepatitis B Vaccines (1 of 3 - 3-dose series) Hepatitis B Vaccines (1 of 3 - 3-dose series) [facility] Start: 1959 Hepatitis C antibody, confirmatory test HEPATITIS C SCREENING [facility] Start: 1959 Hepatitis C screen Hepatitis C screen [place], [place] Start: 1959 Hepatitis C screening Hepatitis C screen [facility] Start: 1959 HIV screening [facility] Start: 1959 Lipid panel [facility] Start: 1959 Medicare Advantage Annual Wellness Visit (AWV) Medicare Advantage Annual Wellness Visit (AWV) [facility] Start: 1959 Potassium measurement Potassium Level [facility] Start: 1959 Protein mass conc [facility] Start: 1959 Screening for malignant neoplasm of cervix PAP SMEAR [facility] Start: 1959 Screening for malignant neoplasm of colon [facility] Start: 1959 Screening for osteoporosis Bone Density Scan [facility] Start: 1959 Screening mammography Mammogram [facility] Start: 1959 Tetanus vaccination TETANUS EVERY 10 YR [facility] Start: 1959 Yearly Adult Physical Yearly Adult Physical [facility] Start: 1959 [facility] Aerobic and Anaerobi c Culture with Stain [facility] Comment on above: Release Upon Ordering for 1 Occurrences starting 05/22/2023 Alanine aminotransfe rase [Enzymatic activity/volume] in Serum or Plasma [facility] Work Phone: Albumin [Mass/volume ] in Serum or Plasma [facility] Work Phone: Alkaline phosphatase [Enzymatic activity/volume] in Serum or Plasma [facility] Work Phone: Amp thigh thru femur sec closure/scar revision REVISION ABOVE KNEE AMPUTATION Surgical wound infection [facility] Operating Room Amputation thigh thr ough femur any level ABOVE KNEE AMPUTATION Cellulitis of left lower limb [facility] Operating Room Amputation thigh thr ough femur any level ABOVE KNEE AMPUTATION Abrasion of lower leg with infection, initial encounter [facility] Operating Room Anaerobic Culture Anaerobic Cult ure Microbiology Routine 05/06/2019 4:24 PM [facility] Anaerobic microbial culture [facility] Comment on above: Once for 1 Occurrences starting 11/04/19 19 Anion gap measurement [facility] Work Phone: Aspartate aminotransferase [Enzymatic activity/volume] in Serum or Plasma [facility] Work Phone: Bacteria identified Cx Nom (Bld) [facility] Bacteria identified in Blood by Culture Blood Culture [facility] End: 11-22-2022 Bacteria identified in Blood by Culture [facility] Work Phone: Bacteria identified in Sputum by Respiratory culture [facility] Work Phone: Bacteria identified in Sputum by Respiratory culture [facility] Bacteria identified in Unspecified specimen by Aerobe culture Culture, Aerobic Bacteria with Gram Stain Microbiology Routine 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, initial encounter ([facility]) 05/22/2023 12:34 PM EDT [facility] End: 05-22-2023 Bacteria identified in Unspecified specimen by Anaerobe culture [facility] Comment on above: Once for 1 Occurrences starting 05/22/20 23 until 05/22/2023 Basic metabolic 2000 panel Basic Metabolic Panel Lab Routine Daily until discontinued starting 05/05/2019, 5 completed [facility] Comment on above: Daily until discontinued starting 2018, 5 completed Bilirubin, total measurement [facility] Work Phone: BIPAP BIPAP Respirator y Care Routine Every 4hr until discontinued starting 05/06/2019 [email or web address] [place] Comment on above: Every 4hr until discontinued starting Blood culture [facility] Work Phone: End: 07-08-2020 Blood glucose - POCT Blood glucose - POCT Point of Care Testing STAT One Time for 1 Occurrences starting 07/08/2020 until 07/08/2020 [facility]: One Time for 1 Occurrences starting 05/2020 until 07/08/2020 End: 07-27-2020 Blood glucose - POCT Blood glucose - POCT Point of Care Testing STAT One Time for 1 Occurrences starting 07/27/2020 until 07/27/2020 [facility] on above[facility] One Time for 1 Occurrences starting 07/02 until 07/27/2020 BUN/Creatinine ratio [facility] Work Phone: Calcium [Mass/volume ] in Serum or Plasma [facility] Work Phone: Carbon dioxide, tota l [Moles/volume] in Serum or Plasma [facility] Work Phone: CBC Auto Differential CBC Auto D ifferential Lab Routine Daily until discontinued starting 05/05/2019, 5 [facility] on above: Daily until discontinued starting 2018, 5 completed Chloride [Moles/volu me] in Serum or Plasma [facility] Work Phone: Creatine kinase [Enzymatic activity/volume] in Serum or Plasma [facility] Work Phone: End: 07-08-2020 Creatinine [Mass/Vol] Creatinine, serum Lab STAT One Time for 1 Occurrences starting 07/08/2020 until 07/08/2020 [facility] Comment on above: One Time for 1 Occurrences starting 05/2020 until 07/08/2020 Creatinine [Moles/vo lume] in Serum or Plasma [facility] Work Phone: End: 06-03-2020 CT Lower Extremity Right WO Contrast CT Lower Extremity Right WO Contrast Imaging Routine Amputation of right lower extremity BKA 1 Occur[facility] 06/03/2020 until [facility]: 1 Occurrences starting 06/03/2020 until 06/03/2020 CT Lower Extremity R ight WO Contrast CT Lower Extremity Right WO Contrast Imaging Routine Amputation of right lower extremity BKA 06/03/2020 6:26 PM [facility], Aerobic Josi teria with Gram Stai Culture, Aerobic Bacteria with Gram Stai Microbiology Routine 05/06/2019 4:24 PM EDT [facility] [place] End: 08-07-2020 Culture, Anaerobic and Aerobic Culture, Anaerobic and Aerobic Microbiology Routine Once for 1 Occurrences starting 08/07/2020 until 08/07/2020 [place] Comment on above: Once for 1 Occurrences starting 08/07/20 20 until 08/07/2020 Culture, Anaerobic a nd Aerobic Culture, Anaerobic and Aerobic Microbiology Routine 08/07/2020 9:30 AM EST [place] Debridement bone mus jessica &/fascia 20 sq cm/< DEBRIDEMENT SKIN, SUBCUTANEOUS TISSUE/MUSCLE/BONE 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 ([facility] [facility] EKG 12 Lead [facility] Fungus identified in Unspecified specimen by Culture [facility] ([facility]) System Work Phone: Comment on above: Release Upon Ordering for 1 Occurrences starting 05/22/2023 Glucose [Mass/volume ] in Serum or Plasma [facility] Work Phone: Hematocrit [Volume Fraction] of Blood [facility] Work Phone: Hemoglobin [Mass/vol ume] in Blood [facility] Work Phone: Hemoglobin A1c/Hemoglobin.total in Blood [facility] Work Phone: Home BIPAP or CPAP Home BIPAP or CPAP Respiratory Care Routine Daily until discontinued starting 08/06/2020 [place] Comment on above: Daily until discontinued starting 2019 End: 12-19-2021 INITIATE PACU OXYGEN THERAPY PROTOCOL Initiate PACU Oxygen Therapy Protocol Respiratory Care Routine Continuous until discontinued starting 12/19/2021 [employer] Work Phone: Comment on above: Continuous until discontinued starting 0 12/19/2021 End: 01-11-2022 INITIATE PACU OXYGEN THERAPY PROTOCOL Initiate PACU Oxygen Therapy Protocol Respiratory Care Routine Continuous until discontinued starting 01/11/2022 [employer] Work Phone: Comment on above: Continuous until discontinued starting 0 01/11/2022 End: 08-17-2020 Inpatient Consult to Wound Care Inpatient Consult to Wound Care Wound Ostomy Routine One Time for 1 Occurrences starting 08/17/2020 until 08/17/2020 [place] Comment on above: One Time for 1 Occurrences starting 08/01 until 08/17/2020 End: 07-08-2020 Intermittent pulse oximetry Pulse Oximetry Spot Check Respiratory Care Routine One Time for 1 Occurrences starting 07/08/2020 until 07/08/2020 [facility] [place] Comment on above: One Time for 1 Occurrences starting 05/2020 until 07/08/2020 End: 07-27-2020 Intermittent pulse oximetry Pulse Oximetry Spot Check Respiratory Care Routine One Time for 1 Occurrences starting 07/27/2020 until 07/27/2020 [facility] [place] Comment on above: One Time for 1 Occurrences starting 07/02 until 07/27/2020 End: 08-04-2021 Intermittent pulse oximetry Pulse Oximetry Spot Check Respiratory Care Routine One Time for 1 Occurrences starting 08/04/2021 until 08/04/2021 [facility] Work Phone: Comment on above: One Time for 1 Occurrences starting 12/2020 until 08/04/2021 End: 12-19-2021 Intermittent pulse oximetry Pulse Oximetry Spot Check Respiratory Care Routine One Time for 1 Occurrences starting 12/19/2021 until 12/19/2021 [employer] Work Phone: Comment on above: One Time for 1 Occurrences starting 11/30 until 12/19/2021 End: 01-11-2022 Intermittent pulse oximetry Pulse Oximetry Spot Check Respiratory Care Routine One Time for 1 Occurrences starting 01/11/2022 until 01/11/2022 [facility] Work Phone: Comment on above: One Time for 1 Occurrences starting 12/30 until 01/11/2022 Leukocytes [#/volume ] in Blood [facility] Work Phone: MDI Treatment MDI Treatment Respiratory Care Routine (respiratory use only) until discontinued starting 08/18/2020 [facility] on above: (respiratory use only) until d iscontinued starting 08/18/2020 Mean corpuscular hemoglobin concentration determination [facility] Work Phone: Mean corpuscular hemoglobin determination [facility] Work Phone: Measurement of renal function [facility] Work Phone: Measurement of respiratory function [facility] Work Phone: Measurement of respiratory function [facility] Mycobacterium sp identified in Unspecified specimen by Organism specific culture [facility] ([place]) Comment on above: Release Upon Ordering for 1 Occurrences starting 05/22/2023 Nasal Cannula Oxygen Nasal Cannu la Oxygen Respiratory Care Routine As Needed until discontinued starting 08/04/2021 [employer] Work Phone: Comment on above: As Needed until discontinued starting Nasal Cannula Oxygen Nasal Cannu la Oxygen Respiratory Care Routine As Needed until discontinued starting 12/19/2021 [employer] Phone: Comment on above: As Needed until discontinued starting Nasal Cannula Oxygen Nasal Cannu la Oxygen Respiratory Care Routine As Needed until discontinued starting 12/19/2021 [employer] Phone: Comment on above: As Needed until discontinued starting Nasal Cannula Oxygen Nasal Cannu la Oxygen Respiratory Care Routine As Needed until discontinued starting 01/11/2022 [employer] Phone: Comment on above: As Needed until discontinued starting Neutrophil count [facility] Work Phone: Neutrophil percent differential count [facility] Work Phone: Nonrebreather mask oxygen Nonreb reather mask oxygen Respiratory Care Routine As Needed until discontinued starting 08/04/2021 [employer] Phone: Comment on above: As Needed until discontinued starting Nonrebreather mask oxygen Nonreb reather mask oxygen Respiratory Care Routine As Needed until discontinued starting 12/19/2021 [employer] Work Phone: Comment on above: As Needed until discontinued starting Nonrebreather mask oxygen Nonreb reather mask oxygen Respiratory Care Routine As Needed until discontinued starting 12/19/2021 [employer] Work Phone: Comment on above: As Needed until discontinued starting Nonrebreather mask oxygen Nonreb reather mask oxygen Respiratory Care Routine As Needed until discontinued starting 01/11/2022 [employer] Work Phone: Comment on above: As Needed until discontinued starting Oxygen therapy [Mini mum Data Set] [facility]: Daily until discontinued starting 2019 Daily until disconti nued starting 08/06/2020 Daily until disconti nued starting 08/17/2020 Daily until disconti nued starting 07/27/2020 As Needed until disc ontinued starting 08/04/2021 Daily until disconti nued starting 08/04/2021 Oxygen therapy [Mini mum Data Set] Initiate Oxygen Therapy Protocol Respiratory Care Routine As Needed until discontinued starting 12/19/2021 [facility] Work Phone: Comment on above: As Needed until discontinued starting Oxygen therapy [Mini mum Data Set] Initiate Oxygen Therapy Protocol Respiratory Care Routine As Needed until discontinued starting 01/11/2022 [employer] Work Phone: Comment on above: As Needed until discontinued starting Patient Education [facility] Work Phone: Patient referral [facility] Work Phone: Phase I & II - meter ed glucose [facility] Comment on above: As Needed until discontinued starting As Needed until disc ontinued starting 07/27/2020 As Needed until disc ontinued starting 08/04/2021 Platelets [#/volume] in Blood [facility] Work Phone: Potassium [Moles/vol ume] in Serum or Plasma [facility] Work Phone: End: 07-08-2020 Potassium w/ Reflex to Magnesium Potassium w/ Reflex to Magnesium Lab Routine One Time for 1 Occurrences starting 07/08/2020 until 07/08/2020 [facility] on above: One Time for 1 Occurrences starting 05/2020 until 07/08/2020 End: 07-27-2020 Potassium w/ Reflex to Magnesium Potassium w/ Reflex to Magnesium Lab Routine One Time for 1 Occurrences starting 07/27/2020 until 07/27/2020 [facility] Comment on above: One Time for 1 Occurrences starting 07/02 until 07/27/2020 End: 07-08-2020 , urine , urine Lab STAT One Time for 1 Occurrences starting 07/08/2020 until 07/08/2020 [facility] Comment on above: One Time for 1 Occurrences starting 05/2020 until 07/08/2020 End: 07-27-2020 , urine , urine Lab STAT One Time for 1 Occurrences starting 07/27/2020 until 07/27/2020 [facility] Comment on above: One Time for 1 Occurrences starting 07/02 until 07/27/2020 End: 07-08-2020 Protime-INR Protime-INR Lab STAT One Time for 1 Occurrences starting 07/08/2020 until 07/08/2020 [facility] [place] Comment on above: One Time for 1 Occurrences starting 05/2020 until 07/08/2020 End: 07-27-2020 Protime-INR Protime-INR Lab STAT One Time for 1 Occurrences starting 07/27/2020 until 07/27/2020 [facility] [place] Comment on above: One Time for 1 Occurrences starting 07/02 until 07/27/2020 End: 12-24-2018 Radioisotope scan of bone marrow NM Bone Marrow Limited Routine Pseudarthrosis after fusion or arthrodesis Arthrodesis status Once for 1 Occurrences starting 12/24/2018 until 12/24/2018 [facility] Comment on above: Once for 1 Occurrences starting 12/25/19 19 until 12/24/2018 End: 12-24-2018 Radionuclide white blood cell imaging study NM White Blood Cell Prep Routine Pseudarthrosis after fusion or arthrodesis Arthrodesis status Once for 1 Occurrences starting 12/24/2018 until 12/24/2018 [facility] Comment on above: Once for 1 Occurrences starting 12/25/19 19 until 12/24/2018 Red blood cell count [facility] Work Phone: Red cell distributio n width determination [facility] Work Phone: Respiratory pathogen s DNA and RNA panel - Respiratory specimen by NICHOLE with probe detection [facility] Sodium [Moles/volume ] in Serum or Plasma [facility] Work Phone: Spirometry panel [facility] [place] Comment on above: Q1H PRN until discontinued starting 05/2020 Q1H PRN until discon tinued starting 07/27/2020 Q1H PRN until discon tinued starting 08/04/2021 Spirometry panel Incentive temi metry Respiratory Care Routine Q1H PRN until discontinued starting 12/19/2021 [facility] Work Phone: Comment on above: Q1H PRN until discontinued starting 11/30 Spirometry panel Incentive temi metry Respiratory Care Routine Q1H PRN until discontinued starting 01/11/2022 [facility] Work Phone: Comment on above: Q1H PRN until discontinued starting 12/30 Tissue AFB Culture [facility] Tissue culture [facility] Tissue exam [facility] Work Phone: Comment on above: Release Upon Ordering for 1 Occurrences starting 10/31/2022, 1 completed Tissue Fungus Culture [facility] Total protein measurement [facility] Work Phone: Triglycerides measurement [facility] Work Phone: Troponin T.cardiac [Mass/volume] in Serum or Plasma by High sensitivity method [facility] Troponin T.cardiac [Mass/volume] in Serum or Plasma by High sensitivity method [facility] Troponin T.cardiac [Mass/volume] in Serum or Plasma by High sensitivity method [facility] Urea nitrogen [Mass/volume] in Serum or Plasma [facility] Work Phone: Urine culture [facility] End: 01-21-2021 XR ANKLE LEFT (MIN 3 VIEWS) XR ANKLE LEFT (MIN 3 VIEWS) Imaging Routine Acute left ankle pain 1 Occurrences starting 01/21/2021 until 01/21/2021 [facility] Work Phone: Comment on above: 1 Occurrences starting 01/21/2021 until 01/21/2021 XR ANKLE LEFT (MIN 3 VIEWS) XR ANKLE LEFT (MIN 3 VIEWS) Imaging Routine Acute left ankle pain 01/21/2021 12:48 PM EDT [facility] Work Phone: XR Chest 1 View XR Chest 1 View ALEXANDRO 12/04/2018 8:57 AM EST [facility] End: 01-21-2021 XR FOOT LEFT (MIN 3 VIEWS) XR FOOT LEFT (MIN 3 VIEWS) Imaging Routine Once for 1 Occurrences starting 01/21/2021 until 01/21/2021 [facility] Work Phone: Comment on above: Once for 1 Occurrences starting 01/22/20 21 until 01/21/2021 XR FOOT LEFT (MIN 3 VIEWS) XR FOOT LEFT (MIN 3 VIEWS) Imaging Routine 01/21/2021 12:48 PM EDT [facility] Work Phone: [facility] Immunizations Immunization Date Immunization Notes Care Provider [facility] 06-27-2023 Influenza, injectabl e, Madin Stella Canine Kidney, preservative free, quadrivalent Jennifer CASEY Work Phone: [facility] 06-27-2023 influenza virus vaccine, unspecified formulation Mili Oliveros MD PhD Work Phone: [facility] Work Phone: 10-17-2022 influenza, injectabl e, quadrivalent, preservative free PREPARATION PLANT REPAIRER-C Oj Varsha PREPARATION PLANT REPAIRER Work Phone: [facility] 10-17-2022 influenza, seasonal, injectable PREPARATION PLANT REPAIRER-C Oj Orange PREPARATION PLANT REPAIRER Work Phone: [facility] 10-17-2022 influenza virus vaccine, unspecified formulation Rusty Mercado MD Work Phone: [facility] 10-01-2021 influenza, injectabl e, quadrivalent, preservative free PREPARATION PLANT REPAIRER-C Oj Varsha PREPARATION PLANT REPAIRER Work Phone: [facility] 10-01-2021 influenza, seasonal, injectable PREPARATION PLANT REPAIRER-C Oj Orange PREPARATION PLANT REPAIRER Work Phone: [facility] 10-01-2021 Seasonal, quadrivale nt, recombinant, injectable influenza vaccine, preservative free PREPARATION PLANT REPAIRER-C Oj Varsha PREPARATION PLANT REPAIRER Work Phone: [facility] 10-01-2021 influenza virus vaccine, unspecified formulation Amberly Schaefer MD Work Phone: [facility] 02-24-2021 SARS-CoV-2 (COVID-19 ) mRNA-1273 vaccine OJ MANCUSOPKINS SUPERVISOR HAND SILVERING - DATA MINING ANALYST [facility] 01-27-2021 SARS-CoV-2 (COVID-19 ) mRNA-1273 vaccine OJ VARSHA SUPERVISOR HAND SILVERING - DATA MINING ANALYST [facility] 06-10-2020 influenza, injectabl e, quadrivalent, preservative free; Translations: [Fluarix PF Quadrivalent ] OJ MADDOX SUPERVISOR HAND SILVERING - DATA MINING ANALYST [facility] 09-21-2019 influenza virus vaccine, unspecified formulation OJ MADDOX SUPERVISOR HAND SILVERING - DATA MINING ANALYST [facility] 09-21-2019 influenza, injectabl e, quadrivalent, preservative free PREPARATION PLANT REPAIRER-C Oj Maddox PREPARATION PLANT REPAIRER Work Phone: [facility] 09-21-2019 influenza, seasonal, injectable PREPARATION PLANT REPAIRER-C Oj Maddox PREPARATION PLANT REPAIRER Work Phone: [facility] 09-21-2019 Seasonal, quadrivale nt, recombinant, injectable influenza vaccine, preservative free PREPARATION PLANT REPAIRER-C Oj Maddox PREPARATION PLANT REPAIRER Work Phone: [facility] 06-01-2018 influenza virus vaccine, unspecified formulation OJ MADDOX SUPERVISOR HAND SILVERING - DATA MINING ANALYST [facility] 06-01-2018 influenza, injectabl e, quadrivalent, preservative free PREPARATION PLANT REPAIRER-C Oj Maddox PREPARATION PLANT REPAIRER Work Phone: [facility] 10-01-2017 pneumococcal polysaccharide vaccine, 23 valent OJ MADDOX SUPERVISOR HAND SILVERING - DATA MINING ANALYST [facility] 07-18-2017 influenza virus vaccine, unspecified formulation OJ MADDOX SUPERVISOR HAND SILVERING - DATA MINING ANALYST [facility] 07-18-2017 Influenza, injectabl e, Madin Stella Canine Kidney, preservative free, quadrivalent PREPARATION PLANT REPAIRER-C Oj Maddox PREPARATION PLANT REPAIRER Work Phone: [facility] 06-01-2017 influenza virus vaccine, unspecified formulation OJ MADDOX SUPERVISOR HAND SILVERING - DATA MINING ANALYST [facility] 06-01-2017 influenza, injectabl e, quadrivalent, preservative free PREPARATION PLANT REPAIRER-C Oj Maddox PREPARATION PLANT REPAIRER Work Phone: [facility] 06-28-2016 influenza virus vaccine, unspecified formulation OJ MADDOX SUPERVISOR HAND SILVERING - DATA MINING ANALYST [facility] 06-28-2016 Seasonal, quadrivale nt, recombinant, injectable influenza vaccine, preservative free PREPARATION PLANT REPAIRER-C Oj Maddox PREPARATION PLANT REPAIRER Work Phone: [facility] 06-17-2009 pneumococcal polysaccharide vaccine, 23 valent OJ MADDOX SUPERVISOR HAND SILVERING - DATA MINING ANALYST [facility] NEGATED: Highlighted row has not occurred!11-15-2022 Influenza, injectable, Madin Stella Canine Kidney, preservative free, quadrivalent Ach 1 [facility] ([facility]) Comment on above: Deferred: Other - PA tient already vaccinated this yesr. NEGATED: Highlighted row has not occurred!11-14-2022 Influenza, injectable, Madin Stella Canine Kidney, preservative free, quadrivalent Ach 1 [facility] Comment on above: Deferred: Patient Re fused - already had this year Payers Date Payer Category Payer Medicare (Managed Care) [employer] Member Subscriber Plan / Payer (Effective 2024-Present) Name: Siobhan Haas Relation to Subscriber: Self Name: Siobhan Haas Payer ID: [id number] (NAIC) Type: Not on file Address: [place] [id number] 2024 Self-pay [id number] 2024 Unknown [id number] 2023 Dual Eligibility Medicare/Medicaid Organization [id number] 2021 Medicaid [id number] 2021 Medicaid [id number] 2020 Medicare [id number] 2017 Medicare xxxxxxxxx [id number] 2017 Private Health Insurance 2013 Private Health Insurance [id number] 1959 Unknown [id number] 2.16.840.1.348998.3.579.2 .902 1959 Unknown [id number] 2.16.840.1.188391.3.579.2 .902 1959 Unknown [id number] 2.16.840.1.674206.3.579.2 .902 1959 Unknown [id number] 2.16.840.1.278251.3.579.2 .900 1959 Unknown [id number] 2.16.840.1.276578.3.579.2 .900 1959 Unknown [id number] 2.16.840.1.801467.3.579.2 .902 1959 Unknown [id number] 2.16.840.1.769274.3.579.2 .902 1959 Unknown [id number] 2.16.840.1.444512.3.579.2 .627 1959 Unknown [id number] 2.16.840.1.461971.3.579.2 .627 1959 Unknown [id number] 2.16.840.1.989210.3.579.2 .627 1959 Unknown [id number] 2.16.840.1.006681.3.579.2 .627 1959 Unknown [id number] 2.16.840.1.942618.3.579.2 .627 1959 Unknown [id number] 2.16.840.1.221815.3.579.2 .1244 1959 Unknown [id number] 2.16.840.1.473326.3.579.2 .1247 1959 Unknown [id number] 2.16.840.1.817936.3.579.2 .1244 1959 Unknown [id number] 2.16.840.1.598066.3.579.2 .1244 Private Health Insurance [facility] [id number] Private Health Insurance [facility] [id number] Unknown [id number] 2.16.840.1.410601.3.579.2 .462 Unknown [id number] 2.16.840.1.180752.3.579.2 .462 Unknown [id number] 2.16.840.1.875390.3.579.2 .462 Unknown [id number] 2.16.840.1.644924.3.579.2 .462 Unknown [id number] 2.16.840.1.465913.3.579.2 .462 Unknown [id number] 2.16.840.1.517262.3.579.2 .462 Unknown [id number] 2.16.840.1.138647.3.579.2 .462 Unknown [id number] 2.16.840.1.151343.3.579.2 .462 Unknown [id number] 2.16.840.1.844477.3.579.2 .462 Unknown [id number] 2.16.840.1.728400.3.579.2 .462 Unknown [id number] 2.16.840.1.989677.3.579.2 .462 Unknown [id number] 2.16.840.1.686006.3.579.2 .462 Unknown [id number] 2.16.840.1.034919.3.579.2 .462 Unknown [id number] 2.16.840.1.320994.3.579.2 .462 Social History Date Type Detail Facility Start: 11-04-2018 End: 05-16-2025 Tobacco smoking status NHIS Former smoker [facility] Start: 10-01-1976 End: 10-01-1981 History of tobacco use Current smoker [facility] Start: 10-02-2018 Alcohol Comment socially [facility] Start: 1960 Sex Assigned At Not on file [facility] Start: 05-06-2019 End: 05-07-2025 Alcohol intake Yes [facility] Start: 02-03-2019 Tobacco Comment ONE PACK LASTE D FOR A WEEK [facility] [place] Start: 10-08-2015 Alcohol Comment occasionally [facility] [place] Start: 04-30-2020 End: 05-07-2025 Tobacco use and exposure Never used [facility] [place] Start: 04-30-2020 End: 12-03-2022 Alcohol intake Current drinker of alcohol (finding) [place] Start: 10-01-1976 End: 10-01-1981 History of tobacco use Cigarette Smoker [place] Start: 07-01-2020 End: 05-07-2025 Cigarettes smoked current (pack per day) - Reported [facility] Start: 12-09-2021 End: 06-25-2023 Exposure to SARS-CoV-2 (event) Not sure [place] Start: 1960 Sex Assigned At Female A [facility] Start: 01-21-2022 End: 07-21-2023 Tobacco smoking status NHIS Unknown if ever smoked [facility] Start: 05-06-2021 Occasional [facility] Start: 05-06-2021 None [facility] Start: 05-06-2021 Homeless [facility] Start: 05-06-2021 Non-smoker [facility] Start: 12-06-2022 End: 12-20-2022 Alcohol intake Ex-drinker (finding) [facility] Start: 11-10-2022 End: 12-04-2022 History SDOH Alcohol Frequency 1 [facility] Start: 11-10-2022 End: 12-04-2022 History SDOH Alcohol Std Drinks 0 [facility] Start: 11-11-2022 End: 12-04-2022 History SDOH IPV Fear 2 [facility] History of tobacco use Passive smoker [facility] Within the last year , have you been afraid of your partner or ex-partner? No [facility] How often to you hav e a drink containing alcohol? Never [facility] Start: 03-09-2025 How many standard drinks containing alcohol do you have on a typical day? Patient does not drink [facility] Are you now , , , , never or living with a partner? [facility] How often to you hav e a drink containing alcohol? Monthly or less [facility] How many standard drinks containing alcohol do you have on a typical day? 1 or 2 [facility] Do you feel stress - tense, restless, nervous, or anxious, or unable to sleep at night because your mind is troubled all the time - these days [OSQ] Not at all [facility] The food that (I/we) bought just didn't last, and (I/we) didn't have money to get more. Never true [facility] Start: 01-14-2025 End: 01-17-2025 Sex Female (finding) [facility] Start: 05-07-2025 [facility] Work Phone: Start: 05-07-2025 End: 05-14-2025 Alcoholic beverage intake Lifetime non-drinker (finding) [facility] Work Phone: Medical Equipment Procedure Code Equipment Code Equipment Origin al Text Equipment Identifier Dates Bone Infuse Bone Graft Xsm - [id number] Start: 10-07-2018 Chip 5cc Canc Crushed - [id number] Start: 10-07-2018 Wire K .062 X 5. 5in W/Wire Guide - [id number] Start: 10-07-2018 Screw 7.3 X 75mm Ximena Part Thrd Flower - [id number] Start: 10-07-2018 Screw 7.3 X 80mm Ximena Part Thrd Flower - [id number] Start: 10-07-2018 Screw 7.3 X 50mm Ximena Part Thrd Flower - [id number] Start: 10-07-2018 Washer For 5.5/6.5/7.3mm Screw Flower - [id number] Start: 10-07-2018 Plate X 17mm 5hl Comp Med Flower - [id number] Start: 10-07-2018 Screw 3.5 X 20mm Lock Naga Ang Med Flower - [id number] Start: 10-07-2018 Screw 3.5 X 22mm Lock Naga Ang Med Flower - [id number] Start: 10-07-2018 Screw 3.5 X 24mm Lock Naga Ang Med Flower - [id number] Start: 10-07-2018 Kit 10cc Bone Gr aft Stimulan Rapid Cure - [id number] Start: 11-04-2018 Bone Infuse Bone Graft Xsm - [id number] Start: 10-07-2018 Chip 5cc Canc Crushed - [id number] Start: 10-07-2018 Wire K .062 X 5. 5in W/Wire Guide - [id number] Start: 10-07-2018 Screw 7.3 X 75mm Ximena Part Thrd Flower - [id number] Start: 10-07-2018 Screw 7.3 X 80mm Ximena Part Thrd Flower - [id number] Start: 10-07-2018 Screw 7.3 X 50mm Ximena Part Thrd Flower - [id number] Start: 10-07-2018 Washer For 5.5/6.5/7.3mm Screw Flower - [id number] Start: 10-07-2018 Plate X 17mm 5hl Comp Med Flower - [id number] Start: 10-07-2018 Screw 3.5 X 20mm Lock Naga Ang Med Flower - [id number] Start: 10-07-2018 Screw 3.5 X 22mm Lock Naga Ang Med Flower - [id number] Start: 10-07-2018 Screw 3.5 X 24mm Lock Naga Ang Med Flower - [id number] Start: 10-07-2018 Kit 10cc Bone Gr aft Stimulan Rapid Cure - [id number] Start: 11-04-2018 Bone Infuse Bone Graft Xsm - [id number] Start: 10-07-2018 Chip 5cc Canc Crushed - [id number] Start: 10-07-2018 Wire K .062 X 5. 5in W/Wire Guide - [id number] Start: 10-07-2018 Screw 7.3 X 75mm Ximena Part Thrd Flower - [id number] Start: 10-07-2018 Screw 7.3 X 80mm Ximena Part Thrd Flower - [id number] Start: 10-07-2018 Screw 7.3 X 50mm Ximena Part Thrd Flower - [id number] Start: 10-07-2018 Washer For 5.5/6.5/7.3mm Screw Flower - [id number] Start: 10-07-2018 Plate X 17mm 5hl Comp Med Flower - [id number] Start: 10-07-2018 Screw 3.5 X 20mm Lock Naga Ang Med Flower - [id number] Start: 10-07-2018 Screw 3.5 X 22mm Lock Ngaa Ang Med Flower - [id number] Start: 10-07-2018 Screw 3.5 X 24mm Lock Naga Ang Med Flower - [id number] Start: 10-07-2018 Kit 10cc Bone Gr aft Stimulan Rapid Cure - [id number] Start: 11-04-2018 Bone Infuse Bone Graft Xsm - [id number] Start: 10-07-2018 Chip 5cc Canc Crushed - [id number] Start: 10-07-2018 Wire K .062 X 5. 5in W/Wire Guide - [id number] Start: 10-07-2018 Screw 7.3 X 75mm Ximena Part Thrd Flower - [id number] Start: 10-07-2018 Screw 7.3 X 80mm Ximena Part Thrd Flower - [id number] Start: 10-07-2018 Screw 7.3 X 50mm Ximena Part Thrd Flower - [id number] Start: 10-07-2018 Washer For 5.5/6.5/7.3mm Screw Flower - [id number] Start: 10-07-2018 Plate X 17mm 5hl Comp Med Flower - [id number] Start: 10-07-2018 Screw 3.5 X 20mm Lock Naga Ang Med Flower - [id number] Start: 10-07-2018 Screw 3.5 X 22mm Lock Naga Ang Med Flower - [id number] Start: 10-07-2018 Screw 3.5 X 24mm Lock Naga Ang Med Flower - [id number] Start: 10-07-2018 Kit 10cc Bone Gr aft Stimulan Rapid Cure - [id number] Start: 11-04-2018 MEDTRONIC BLADDE R STIM FDA Start: 07-08-2020 MEDTRONIC BLADDE R STIM FDA Start: 07-08-2020 MEDTRONIC BLADDE R STIM FDA Start: 07-08-2020 MEDTRONIC BLADDE R STIM FDA Start: 07-08-2020 MEDTRONIC BLADDE R STIM FDA Start: 07-08-2020 MEDTRONIC BLADDE R STIM FDA Start: 07-08-2020 MEDTRONIC BLADDE R STIM FDA Start: 07-08-2020 MEDTRONIC BLADDE R STIM FDA Start: 07-08-2020 MEDTRONIC BLADDE R STIM FDA Start: 07-08-2020 MEDTRONIC BLADDE R STIM FDA Start: 07-08-2020 MEDTRONIC BLADDE R STIM FDA Start: 07-08-2020 MEDTRONIC BLADDE R STIM FDA Start: 07-08-2020 MEDTRONIC BLADDE R STIM FDA Start: 07-08-2020 MEDTRONIC BLADDE R STIM FDA Start: 07-08-2020 MEDTRONIC BLADDE R STIM FDA Start: 07-08-2020 MEDTRONIC BLADDE R STIM FDA Start: 07-08-2020 MEDTRONIC BLADDE R STIM FDA Start: 07-08-2020 MEDTRONIC BLADDE R STIM FDA Start: 07-08-2020 [id number] Start: 11-21-2022 Interstim X [id number] Start: 02-22-2023 MEDTRONIC BLADDE R STIM FDA Start: 07-08-2020 MEDTRONIC BLADDE R STIM FDA Start: 07-08-2020 MEDTRONIC BLADDE R STIM FDA Start: 07-08-2020 MEDTRONIC BLADDE R STIM FDA Start: 07-08-2020 MEDTRONIC BLADDE R STIM FDA Start: 07-08-2020 MEDTRONIC BLADDE R STIM FDA Start: 07-08-2020 MEDTRONIC BLADDE R STIM FDA Start: 07-08-2020 MEDTRONIC BLADDE R STIM FDA Start: 07-08-2020 MEDTRONIC BLADDE R STIM FDA Start: 07-08-2020 MEDTRONIC BLADDE R STIM FDA Start: 07-08-2020 MEDTRONIC BLADDE R STIM FDA Start: 07-08-2020 MEDTRONIC BLADDE R STIM FDA Start: 07-08-2020 MEDTRONIC BLADDE R STIM FDA Start: 07-08-2020 MEDTRONIC BLADDE R STIM FDA Start: 07-08-2020 MEDTRONIC BLADDE R STIM FDA Start: 07-08-2020 MEDTRONIC BLADDE R STIM FDA Start: 07-08-2020 MEDTRONIC BLADDE R STIM FDA Start: 07-08-2020 MEDTRONIC BLADDE R STIM FDA Start: 07-08-2020 Goals Date Patient Goal Desired Activity /State Functional Status Date Assessment Result Facility 05-14-2025 Formerly [facility] everity rating scale screener - recent [C-SSRS] [facility] Work Phone: 05-07-2025 Patient Health Questionnaire 2 item (PHQ-2) [Reported] [facility] Work Phone: 05-07-2025 Mathews - suicide s everity rating scale screener - recent [C-SSRS] [facility] Work Phone: 05-07-2025 Total score [AUDIT-C] 0 05/07/20 25 1:19 PM EDT Gisell Perez, TAMMIE [facility] Work Phone: 01-17-2025 Functional status Bedrest;Bedpan [facility] Work Phone: 07-23-2023 Functional status Ambulates [facility] Work Phone: 10-20-2022 Functional status Ambulates [facility] Work Phone: 09-05-2022 Functional status Chair [facility] Work Phone: 10-03-2021 Functional status Ambulates;Beds rashel [employer] Work Phone: [facility] Work Phone: Mental Status Date Assessment Result Facility 01-17-2025 Cognitive function Voice/Name [facility] Work Phone: 01-14-2025 Cognitive function Voice/Name [facility] Work Phone: 07-23-2023 Cognitive function Voice/Name [facility] Work Phone: 07-20-2023 Cognitive function Level Of Cons ciousness Awake;Alert;Appropriate;Follow s Commands [facility] Work Phone: 11-06-2022 Cognitive function Level Of Cons ciousness Awake;Alert;Appropriate;Follow s Commands [facility] Work Phone: 10-20-2022 Cognitive function Voice/Name [facility] Work Phone: 09-05-2022 Cognitive function Voice/Name [facility] Work Phone: 12-01-2022 Cognitive function Voice/Name [facility] Work Phone: 01-21-2022 Cognitive function Level Of Cons ciousness Awake;Alert;Disoriented [facility] Work Phone: 10-03-2021 Cognitive function Voice/Name [facility] Work Phone: Clinical Notes 07-28-2021 to 05-16-2025 Note Date & Type Note Facility 05-16-2025 Discharge summary Note Date/Time May 16, 2025 9:35am [facility] Medical Records Department [address] [place] [address] Emergency Department Summary 05/16/25 MR#: [id number] Acct: [id number] Name: SIOBHAN HAAS Rep #:[id number] : 1960 64 From: August Hobson MD PCP: Dr. Louis Penn MD Status:REG E R Location: ED HPI <Dr. August Hobson MD - Last Filed: 05/16/25 07:13> History of Present Illness Chief Complaint: Cough Informant: patient and EMS Narrative Narrative: 64-year-old female sent from halfway at 5:45 AM because she woke up withcoughing, chest pressure, shortness of breath feels like her asthma. She statesthey did an albuterol treatment for her and it did not really seem to help her chest pressure. She states she tested positive for COVID yesterday, she was having sore throat and some congestion. She states that hurts worse to cough. Hurts worse on the right than the left of her chest. [facility] <Dr. 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 Pulmonary embolism Current use of [facility] anticoagulation Chronic wound of extremity Anemia Necrotizing fasciitis Below knee amputation Depression Rheumatoid arthritis GERD (gastroesophageal reflux disease) Former smoker BiPAP (biphasic positive airway pressure) dependence Sleep apnea Hypertension Failure of outpatient treatment Anxiety and depression Bronchospasm Asthma exacerbation Family history of diabetes mellitus (DM) Restless leg syndrome Obstructive sleep apnea Morbid obesity Fibromyalgia Reflex sympathetic dystrophy Benign essential HTN Asthma Anxiety Home Medications ?Medication ?Instructions ?Recorded ?Last Taken ?Type albuterol sulfate 90 mcg/actuation 2 puff inhalation Q 6H PRN 05/11/21 08/24/22 Rx aerosol inhaler shortness of breath or wheez ing #8.5 grams valsartan 320 mg tablet 320 mg PO DAILY heart 08/31/22 History pramipexole 1.5 mg tablet 3 mg PO QHS RESTLESS LEG SYN DROME 06/15/21 08/30/22 History amitriptyline 100 mg tablet 100 mg PO QHS PHANTOM 12/0 10/2208/30/22 History PAIN/DEPRESSION cholecalciferol (vitamin D3) 1,250 1,250 mcg PO MO SUP PLEMENT 08/31/22 08/28/22 History mcg (50,000 unit) capsule metoprolol succinate 50 mg 50 mg PO DAILY blood pressu re 10/16/22 Unknown History tablet,extended release 24 hr montelukast 10 mg tablet 10 mg PO DAILY asthma Unknown History albuterol sulfate 2.5 mg/3 mL 1.25 mg inhalation Q4H P RN 07/21/23 Unknown History (0.083 %) solution for nebulization sob/wheezing atorvastatin 10 mg tablet 10 mg PO QHS cholesterol Unknown History docusate sodium 100 mg capsule 100 mg PO DAILY constip ation 07/21/23 Unknown History (Colace) fluticasone 250 mcg-salmeterol 50 1 inh inhalation BID copd 07/21/23 Unknown History mcg/dose blistr powdr for inhalation (Advair Diskus) gabapentin 300 mg capsule 300 mg PO DAILY phantom pain 07/21/23 Unknown History loratadine 10 mg tablet (Allergy 10 mg PO DAILY allerg ies 07/21/23 Unknown History Relief (loratadine)) melatonin 5 mg tablet 5 mg PO QHS sleep 07/21/23 U nknown History multivitamin (Daily Multi-Vitamin 1 tab PO DAILY suppl ement 07/21/23 Unknown History tablet) metformin 850 mg tablet 850 mg PO BID DIABETES 05/06 Unknown History sertraline 50 mg tablet 50 mg PO DAILY DEPRESSION Unknown History acetaminophen 500 mg tablet 1,000 mg PO Q8H PRN pain 0 05/08/24 Unknown History (Acetaminophen Extra Strength) hydroxyzine pamoate 25 mg capsule 25 mg PO Q6H PRN anx iety 05/08/24 Unknown History (Vistaril) bisacodyl 10 mg rectal suppository 10 mg MO QHS PRN co nstipation 01/14/25 Unknown History buprenorphine HCl 300 mcg buccal 300 mcg buccal BID Unknown History film (Belbuca) diphenhydramine HCl 25 mg tablet 25 mg PO Q4H PRN diann rgic reaction 01/14/25 Unknown History (Benadryl Allergy) gabapentin 300 mg capsule 600 mg PO QHS FOR PHANTOM PA IN 01/14/25 Unknown History guaifenesin 100 mg/5 mL oral 100 mg PO Q6H PRN cough 0 01/14/25 Unknown History liquid (Adult Tussin Chest Congestion) guaifenesin 600 mg tablet, 600 mg PO BID PRN congestio n 01/14/25 Unknown History extended release 12 hr (Mucinex) ibuprofen 200 mg tablet (Advil) 400 mg PO Q12H PRN arjun n 01/14/25 Unknown History lidocaine 5 % topical patch 1 patch topical QHS PAIN 0 01/14/25 Unknown History (DermacinRx Lidocan) magnesium hydroxide 400 mg/5 mL 2,400 mg PO DAILY PRN constipation 01/14/25 Unknown History oral suspension (Dulcolax (magnesium hydroxide)) mineral oil (Fleet Mineral Oil 118 ml MO DAILY PRN con stipation 01/14/25 Unknown History enema) polyethylene glycol 3350 17 17 g PO DAILY PRN constipa tion 01/14/25 Unknown History gram/dose oral powder (ClearLax) saliva substitute combo no.9 15 ml mucous membrane JORGE LY DRY 01/14/25 Unknown History (Biotene Dry Mouth Oral Rinse MOUTH mouthwash) ondansetron 4 mg disintegrating 4 mg PO Q6H PRN nausea and vomiting 01/27/25 Unknown History tablet potassium chloride 20 mEq 20 meq PO BID 01/27/25 Unkno wn History tablet,extended release dexamethasone 6 mg tablet 6 mg PO DAILY #4 tabs Unknown Rx ropinirole 0.25 mg tablet 0.25 mg PO TID 05/16/25 Unkn own History Allergy/AdvReac Type Severity Reaction Status Date / Time losartan (From Cozaar) Allergy Mild Rash Verified 05/16/25 05:39 cefepime Allergy Unknown NEEDS Verified 05/16/25 05:39 FOLLOW-UP clonazepam Allergy Unknown NEEDS Verified 05/16/25 05:39 FOLLOW-UP hydromorphone Allergy Unknown NEEDS Verified 05/16/25 05:39 FOLLOW-UP ketamine Allergy Unknown NEEDS Verified 05/16/25 05:39 FOLLOW-UP lisinopril Allergy Unknown NEEDS Verified 05/16/25 05:39 FOLLOW-UP vancomycin Allergy Rash Verified 05/16/25 05:39 amlodipine AdvReac Swelling Verified 05/16/25 05:39 Family History (Reviewed 01/27/25 @ 10:52 by Adwoa Cruz [employer]ER, [employer]ANT REPA[employer]-C) Mother Hypertension Cancer Pancreatic Diabetes Father Cancer pancreatic Brother Diabetes Asthma Hypertension Grandfather Diabetes Surgical History Hx of BKA Hx of breast reduction, elective Chronic knee pain after total replacement of left knee joint H/O foot surgery History of hysterectomy History of tonsillectomy Social History household members: significant other Smoking Status: Former smoker alcohol intake: never substance use type: does not use ROS <Dr. August Hobson MD - Last Filed: 05/16/25 07:13> ROS ED Constitutional Constitutional ED: Denies chills or fever(s) Eyes Eyes: Denies change in vision or diplopia ENT ENT ED: Reports nasal congestion, rhinorrhea and sore throat Cardiovascular Cardiovascular: Reports chest pain; Denies palpitations Respiratory/Chest Respiratory/Chest: Reports cough and dyspnea Gastrointestinal Gastrointestinal: Denies abdominal pain, diarrhea, nausea or vomiting Genitourinary Genitourinary ED: Denies dysuria or hematuria Musculoskeletal Musculoskeletal: Denies back pain or neck pain Integumentary Denies abscess or rash Neurologic Neurologic: Denies headache(s), paresthesias or weakness Psychiatric Psychiatric: Denies anxiety or suicidal thoughts EXAM <Dr. August Hobson MD - Last Filed: 05/16/25 07:13> Physical Exam Const Vital Signs: 05/16/25 05:39 05/16/25 05:42 05/16/25 05:42 Temperature 98.1 F 98.1 F Temperature Source Oral Oral Pulse Rate 75 75 Respiratory Rate 18 18 Respiratory Effort Short of Breath Labored Respiratory Depth Shallow Respiratory Pattern Tachypnea Blood Pressure 102/72 102/72 Blood Pressure Mean 82 82 Pulse Ox 99 99 Oxygen Delivery Method Room Air Room Air Room Air 05/16/25 05:50 05/16/25 05:52 05/16/25 06:42 Temperature 98 F Temperature Source Oral Pulse Rate 75 76 Respiratory Rate 20 H 18 Respiratory Effort Respiratory Depth Respiratory Pattern Tachypnea Blood Pressure 129/72 H Blood Pressure Mean 91 Pulse Ox 99 95 Oxygen Delivery Method Room Air Room Air Positive well nourished, well developed and obese General Appearance ED: well developed and NAD Nutritional Appearance: obese HEENT Reports moist mucous membranes normocephalic and atraumatic Eyes PERRL and EOMs intact bilaterally Neck full ROM and supple Resp normal respiratory effort Resp Narrative: Mild expiratory wheezes, otherwise clear. Cardio regular rate, regular rhythm and no murmurs GI non-tender and non-distended Auscultation: normoactive bowel sounds Palpation: soft Back/Spine no CVA tenderness General Back: other FROM Extremity normal to inspection Extremity Narrative: Status post right BKA and left AKA General Extremety ED: Negative for edema, pulses abnormal or tenderness General Extremity: Negative for edema or pulses abnormal Neuro oriented x3, CN's II-XII intact bilaterally and no sensory deficits noted Sensorium / Orientation: awake and alert Motor Exam: strength 5/5 throughout Skin no rashes or lesions noted and no wounds <Dr. Mario Marcelo MD - Last Filed: 05/16/25 09:35> Physical Exam Const Vital Signs: 05/16/25 05:39 05/16/25 05:42 05/16/25 05:42 Temperature 98.1 F 98.1 F Temperature Source Oral Oral Pulse Rate 75 75 Respiratory Rate 18 18 Respiratory Effort Short of Breath Labored Respiratory Depth Shallow Respiratory Pattern Tachypnea Blood Pressure 102/72 102/72 Blood Pressure Mean 82 82 Pulse Ox 99 99 Oxygen Delivery Method Room Air Room Air Room Air 05/16/25 05:50 05/16/25 05:52 05/16/25 06:42 Temperature 98 F Temperature Source Oral Pulse Rate 75 76 Respiratory Rate 20 H 18 Respiratory Effort Respiratory Depth Respiratory Pattern Tachypnea Blood Pressure 129/72 H Blood Pressure Mean 91 Pulse Ox 99 95 Oxygen Delivery Method Room Air Room Air [facility] <Dr. August Hobson MD - Last Filed: 05/16/25 07:13> [facility] Narrative Medical decision making narrative: In context of COVID, I am less concerned about COVID-pneumonia since her vital signs are normal and she is not hypoxic with 99% saturations on room air. However she is having chest pain, some of which that feels pressure/tight like her asthma/COPD, and some that is lateralizing to the right. COVID increases the chances of her having venous thromboembolic disease and she apparently has ahistory of pulmonary embolus in the past and is no longer anticoagulated upon reviewing her longterm medication list. For that reason, I sought to work her up for pulmonary embolus and pneumonia. 1 view chest x-ray on my interpretation shows no signs of pneumonia, radiology in agreement. Labs are noted, her D-dimer returns elevated even when corrected for age, therefore not performed left to rule out PE and will need to undergo CT inject his chest in order to do so. Patient is doing better after breathing treatments, chest is less tight, she is less dyspneic and able to converse in full sentences without difficulty or distress. Her vital signs are normal. CTA will be checked out tooncoming ED physician at shift change, if negative for PE, I support send her back to longterm with prescription for steroids to treat her for an asthma/COPD exacerbation caused likely by COVID. If positive, she is stable andcan probably still be discharged back, just with adding anticoagulation. Lab Data Attestation: I reviewed the patient's lab results. Labs: Laboratory Results - last 24 hr 05/16/25 05/16/25 06:15 06:22 WBC 9.2 RBC 4.70 Hgb 13.2 Hct 41.2 MCV 87.7 MCH 28.1 MCHC 32.0 RDW Std Deviation 48.9 H RDW Coeff of Naga 15.0 H Plt Count 246 MPV 10.5 Immature Gran % (Auto) 0.800 Neut % (Auto) 65.3 Lymph % (Auto) 22.6 Rabun % (Auto) 10.3 H Eos % (Auto) 0.3 Baso % (Auto) 0.7 Absolute Neuts (auto) 6.0 Absolute Lymphs (auto) 2.07 Nucleated RBC % 0 D-Dimer Quant (PE/DVT) 0.89 H* Sodium 137 Potassium 4.0 Chloride 103 Carbon Dioxide 21.7 Anion Gap 12 BUN 18 Creatinine 0.62 L Estim Creat Clear Calc 110.12 Est GFR (MDRD) Non-Af 99 BUN/Creatinine Ratio 29.2 H Glucose 114 H Calcium 9.2 Troponin T High Sens < 6 D Radiography Diagnostic Testing: Clinical Impression(s) from Imaging Studies Chest X-Ray 05/16/25 06:32 IMPRESSION: No acute cardiopulmonary abnormalities. Reading Location: [facility] Chest CTA 05/16/25 08:29 IMPRESSION: No evidence of pulmonary embolism, with limited evaluation of the bilateral lower lobe distal subsegmental pulmonary arteries. Reading Location: [facility] Rhythm Strip Rhythm Strip: Sinus Rhythm Rate: 70 Ectopy: None EKG Initial EKG: Attestation: I personally reviewed and interpreted this EKG as follows: Interpretation: Sinus Rhythm and No Acute Injury Pattern Comments: Nml axis & intervals; nml EKG <Dr. Mario Marcelo MD - Last Filed: 05/16/25 09:35> [facility] Lab Data Labs: Laboratory Results - last 24 hr 05/16/25 05/16/25 06:15 06:22 WBC 9.2 RBC 4.70 Hgb 13.2 Hct 41.2 MCV 87.7 MCH 28.1 MCHC 32.0 RDW Std Deviation 48.9 H RDW Coeff of Naga 15.0 H Plt Count 246 MPV 10.5 Immature Gran % (Auto) 0.800 Neut % (Auto) 65.3 Lymph % (Auto) 22.6 Rabun % (Auto) 10.3 H Eos % (Auto) 0.3 Baso % (Auto) 0.7 Absolute Neuts (auto) 6.0 Absolute Lymphs (auto) 2.07 Nucleated RBC % 0 D-Dimer Quant (PE/DVT) 0.89 H* Sodium 137 Potassium 4.0 Chloride 103 Carbon Dioxide 21.7 Anion Gap 12 BUN 18 Creatinine 0.62 L Estim Creat Clear Calc 110.12 Est GFR (MDRD) Non-Af 99 BUN/Creatinine Ratio 29.2 H Glucose 114 H Calcium 9.2 Troponin T High Sens < 6 D Radiography Diagnostic Testing: Clinical Impression(s) from Imaging Studies Chest X-Ray 05/16/25 06:32 IMPRESSION: No acute cardiopulmonary abnormalities. Reading Location: [facility] Chest CTA 05/16/25 08:29 IMPRESSION: No evidence of pulmonary embolism, with limited evaluation of the bilateral lower lobe distal subsegmental pulmonary arteries. Reading Location: [id number] Treatment and Re-Evaluation :: Patient care was transferred to in at change of shift. Patient had extravasation of her contrast into her left breast. There was no blanching initially. When she returned from the radiology suite and she was evaluated thebreast appeared normal other than some slight swelling where there contrast extravasated. There is no erythema, warmth, induration. Capillary fill is normal. The radiology report was reviewed. Suspect her D-dimer is elevated due to the fact that she has COVID-19. Plan is to discharge in stable condition. Home-going's were reviewed and she has a prescription for Decadron's since she is positive for COVID-19. Discharge Plan Triage Chief Complaint: Cough ED Provider: August Hobson Dx/Rx/DC Orders Clinical Impression: Acute asthma exacerbation, Chest pain, Acute bronchitis due to COVID-19 virus, Sleep apnea, Morbid obesity, Hypertension, Elevated d-dimer Instructions: ED Asthma, Acute (Adult) Prescriptions: New dexamethasone 6 mg tablet 6 mg PO DAILY Qty: 4 0RF Rx Instructions: start 05/17 No Action albuterol sulfate 90 mcg/actuation HFA aerosol inhaler 2 puff inhalation Q6H PRN (Reason: shortness of breath or wheezing) Qty: 8.5 6RF Rx Instructions: administer with spacer metformin 850 mg tablet 850 mg PO BID sertraline 50 mg tablet 50 mg PO DAILY ondansetron 4 mg tablet,disintegrating 4 mg PO Q6H PRN (Reason: nausea and vomiting) potassium chloride 20 mEq tablet extended release 20 meq PO BID valsartan 320 mg tablet 320 mg PO DAILY pramipexole 1.5 mg tablet 3 mg PO QHS amitriptyline 100 mg tablet 100 mg PO QHS cholecalciferol (vitamin D3) 1,250 mcg (50,000 unit) capsule 1,250 mcg PO MO metoprolol succinate 50 mg tablet extended release 24 hr 50 mg PO DAILY montelukast 10 mg Tablet 10 mg PO DAILY albuterol sulfate 2.5 mg /3 mL (0.083 %) solution for nebulization 1.25 mg inhalation Q4H PRN (Reason: sob/wheezing) atorvastatin 10 mg tablet 10 mg PO QHS docusate sodium [Colace] 100 mg capsule 100 mg PO DAILY fluticasone propion-salmeterol [Advair Diskus] 250-50 mcg/dose blister with device 1 inh inhalation BID gabapentin 300 mg capsule 300 mg PO DAILY loratadine [Allergy Relief (loratadine)] 10 mg tablet 10 mg PO DAILY melatonin 5 mg tablet 5 mg PO QHS multivitamin [Daily Multi-Vitamin] Tablet 1 tab PO DAILY acetaminophen [Acetaminophen Extra Strength] 500 mg tablet 1,000 mg PO Q8H PRN (Reason: pain) hydroxyzine pamoate [Vistaril] 25 mg capsule 25 mg PO Q6H PRN (Reason: anxiety) buprenorphine HCl [Belbuca] 300 mcg film 300 mcg BUCCAL BID diphenhydramine HCl [Benadryl Allergy] 25 mg tablet 25 mg PO Q4H PRN (Reason: allergic reaction) Biotene Dry Mouth Oral Rinse Mouthwash 15 ml mucous membrane DAILY bisacodyl 10 mg suppository 10 mg MO QHS PRN (Reason: constipation) Rx Instructions: USE NEEDED IF NO BM 8 HOURS AFTER MOM ADMINISTRATION mineral oil [Fleet Mineral Oil] Enema 118 ml MO DAILY PRN (Reason: constipation) Rx Instructions: ADMINISTER ONCE DAILY IF NO BM 8 HOURS AFTER RECEIVING SUPPOSITORY. IF NO BM WITHIN 1 HOUR AFTER RECEIVING ENEMA NOTIFY MD. gabapentin 300 mg capsule 600 mg PO QHS Patient Comments: TAKE 1 CAPSULE IN AM, 2 CAPSULES AT BEDTIME. ibuprofen [Advil] 200 mg tablet 400 mg PO Q12H PRN (Reason: pain) lidocaine [DermacinRx Lidocan] 5 % adhesive patch,medicated 1 patch topical QHS Rx Instructions: APPLY TO THE LEFT SHOULDER AT BEDTIME. REMOVE AFTER 12 HOURS. magnesium hydroxide [Dulcolax (magnesium hydroxide)] 400 mg/5 mL suspension 2,400 mg PO DAILY PRN (Reason: constipation) Rx Instructions: GIVE ONCE DAILY PER BOWEL PROTOCOL. ADMINISTER IF NO BM IN 3 CONSECUTIVE DAYS polyethylene glycol 3350 [ClearLax] 17 gram/dose powder 17 g PO DAILY PRN (Reason: constipation) guaifenesin [Mucinex] 600 mg tablet extended release 12hr 600 mg PO BID PRN (Reason: congestion) guaifenesin [Adult Tussin Chest Congestion] 100 mg/5 mL liquid 100 mg PO Q6H PRN (Reason: cough) ropinirole 0.25 mg tablet 0.25 mg PO TID Primary Care Provider: Louis Penn Referrals: Louis Penn MD [Primary Care Provider] - Print Language: Ugandan Disposition Disposition: Home, Self Care What to do if you have Problems For any increased pain, shortness of breath, bleeding, nausea or vomiting, chestpain, or any unexpected problems, contact your Primary Care Provider. Call Doctors Registry ([phone]) or report to the closest Emergency Room. Call 911 if necessary. 05/16/25 0713 <Electronically signed by August Hobson MD> Cosigner Signature (if applicable): 05/16/25 0935 <Electronically signed by Sadia BORDEN> CC: Dr. Louis Penn MD ~ Signed [facility] Work Phone: [phone] Discharge summary [facility] Medical Records Department [address] [place] [address] Emergency Department Summary 05/16/25 MR#: [id number] Acct: [id number] Name: SIOBHAN HAAS Rep #:[id number] : 1960 64 From: August Hobson MD PCP: Dr. Louis Penn MD Status:REG E R Location: ED HPI History of Present Illness Chief Complaint: Cough Informant: patient and EMS Narrative Narrative: 64-year-old female sent from halfway at 5:45 AM because she woke up withcoughing, chest pressure, shortness of breath feels like her asthma. She statesthey did an albuterol treatment for her and it did not really seem to help her chest pressure. She states she tested positive for COVID yesterday, she was having sore throat and some congestion. She states that hurts worse to cough. Hurts worse on the right than the left of her chest. 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 Pulmonary embolism Current use of [facility] anticoagulation Chronic wound of extremity Anemia Necrotizing fasciitis Below knee amputation Depression Rheumatoid arthritis GERD (gastroesophageal reflux disease) Former smoker BiPAP (biphasic positive airway pressure) dependence Sleep apnea Hypertension Failure of outpatient treatment Anxiety and depression Bronchospasm Asthma exacerbation Family history of diabetes mellitus (DM) Restless leg syndrome Obstructive sleep apnea Morbid obesity Fibromyalgia Reflex sympathetic dystrophy Benign essential HTN Asthma Anxiety Home Medications ?Medication ?Instructions ?Recorded ?Last Taken ?Type albuterol sulfate 90 mcg/actuation 2 puff inhalation Q 6H PRN 05/11/21 08/24/22 Rx aerosol inhaler shortness of breath or wheez ing #8.5 grams valsartan 320 mg tablet 320 mg PO DAILY heart 08/31/22 History pramipexole 1.5 mg tablet 3 mg PO QHS RESTLESS LEG SYN DROME 06/15/21 08/30/22 History amitriptyline 100 mg tablet 100 mg PO QHS PHANTOM 12/0 10/2208/30/22 History PAIN/DEPRESSION cholecalciferol (vitamin D3) 1,250 1,250 mcg PO MO SUP PLEMENT 08/31/22 08/28/22 History mcg (50,000 unit) capsule metoprolol succinate 50 mg 50 mg PO DAILY blood pressu re 10/16/22 Unknown History tablet,extended release 24 hr montelukast 10 mg tablet 10 mg PO DAILY asthma Unknown History albuterol sulfate 2.5 mg/3 mL 1.25 mg inhalation Q4H P RN 07/21/23 Unknown History (0.083 %) solution for nebulization sob/wheezing atorvastatin 10 mg tablet 10 mg PO QHS cholesterol Unknown History docusate sodium 100 mg capsule 100 mg PO DAILY constip ation 10/21/23 Unknown History (Colace) fluticasone 250 mcg-salmeterol 50 1 inh inhalation BID copd 07/21/23 Unknown History mcg/dose blistr powdr for inhalation (Advair Diskus) gabapentin 300 mg capsule 300 mg PO DAILY phantom pain 07/21/23 Unknown History loratadine 10 mg tablet (Allergy 10 mg PO DAILY allerg ies 07/21/23 Unknown History Relief (loratadine)) melatonin 5 mg tablet 5 mg PO QHS sleep 07/21/23 U nknown History multivitamin (Daily Multi-Vitamin 1 tab PO DAILY suppl ement 07/21/23 Unknown History tablet) metformin 850 mg tablet 850 mg PO BID DIABETES 05/06 Unknown History sertraline 50 mg tablet 50 mg PO DAILY DEPRESSION Unknown History acetaminophen 500 mg tablet 1,000 mg PO Q8H PRN pain 0 05/08/24 Unknown History (Acetaminophen Extra Strength) hydroxyzine pamoate 25 mg capsule 25 mg PO Q6H PRN anx iety 05/08/24 Unknown History (Vistaril) bisacodyl 10 mg rectal suppository 10 mg MO QHS PRN co nstipation 01/14/25 Unknown History buprenorphine HCl 300 mcg buccal 300 mcg buccal BID Unknown History film (Belbuca) diphenhydramine HCl 25 mg tablet 25 mg PO Q4H PRN diann rgic reaction 01/14/25 Unknown History (Benadryl Allergy) gabapentin 300 mg capsule 600 mg PO QHS FOR PHANTOM PA IN 01/14/25 Unknown History guaifenesin 100 mg/5 mL oral 100 mg PO Q6H PRN cough 0 01/14/25 Unknown History liquid (Adult Tussin Chest Congestion) guaifenesin 600 mg tablet, 600 mg PO BID PRN congestio n 01/14/25 Unknown History extended release 12 hr (Mucinex) ibuprofen 200 mg tablet (Advil) 400 mg PO Q12H PRN arjun n 01/14/25 Unknown History lidocaine 5 % topical patch 1 patch topical QHS PAIN 0 01/14/25 Unknown History (DermacinRx Lidocan) magnesium hydroxide 400 mg/5 mL 2,400 mg PO DAILY PRN constipation 01/14/25 Unknown History oral suspension (Dulcolax (magnesium hydroxide)) mineral oil (Fleet Mineral Oil 118 ml MO DAILY PRN con stipation 01/14/25 Unknown History enema) polyethylene glycol 3350 17 17 g PO DAILY PRN constipa tion 01/14/25 Unknown History gram/dose oral powder (ClearLax) saliva substitute combo no.9 15 ml mucous membrane JORGE LY DRY 01/14/25 Unknown History (Biotene Dry Mouth Oral Rinse MOUTH mouthwash) ondansetron 4 mg disintegrating 4 mg PO Q6H PRN nausea and vomiting 01/27/25 Unknown History tablet potassium chloride 20 mEq 20 meq PO BID 01/27/25 Unkno wn History tablet,extended release dexamethasone 6 mg tablet 6 mg PO DAILY #4 tabs Unknown Rx ropinirole 0.25 mg tablet 0.25 mg PO TID 05/16/25 Unkn own History Allergy/AdvReac Type Severity Reaction Status Date / Time losartan (From Cozaar) Allergy Mild Rash Verified 05/16/25 05:39 cefepime Allergy Unknown NEEDS Verified 05/16/25 05:39 FOLLOW-UP clonazepam Allergy Unknown NEEDS Verified 05/16/25 05:39 FOLLOW-UP hydromorphone Allergy Unknown NEEDS Verified 05/16/25 05:39 FOLLOW-UP ketamine Allergy Unknown NEEDS Verified 05/16/25 05:39 FOLLOW-UP lisinopril Allergy Unknown NEEDS Verified 05/16/25 05:39 FOLLOW-UP vancomycin Allergy Rash Verified 05/16/25 05:39 amlodipine AdvReac Swelling Verified 05/16/25 05:39 Family History (Reviewed 01/27/25 @ 10:52 by Adwoa Cruz PREPARATION PLANT REPAIRER, PREPARATION PLANT REPAIRER-C) Mother Hypertension Cancer Pancreatic Diabetes Father Cancer pancreatic Brother Diabetes Asthma Hypertension Grandfather Diabetes Surgical History Hx of BKA Hx of breast reduction, elective Chronic knee pain after total replacement of left knee joint H/O foot surgery History of hysterectomy History of tonsillectomy Social History household members: significant other Smoking Status: Former smoker alcohol intake: never substance use type: does not use ROS ROS ED Constitutional Constitutional ED: Denies chills or fever(s) Eyes Eyes: Denies change in vision or diplopia ENT ENT ED: Reports nasal congestion, rhinorrhea and sore throat Cardiovascular Cardiovascular: Reports chest pain; Denies palpitations Respiratory/Chest Respiratory/Chest: Reports cough and dyspnea Gastrointestinal Gastrointestinal: Denies abdominal pain, diarrhea, nausea or vomiting Genitourinary Genitourinary ED: Denies dysuria or hematuria Musculoskeletal Musculoskeletal: Denies back pain or neck pain Integumentary Denies abscess or rash Neurologic Neurologic: Denies headache(s), paresthesias or weakness Psychiatric Psychiatric: Denies anxiety or suicidal thoughts EXAM Physical Exam Const Vital Signs: 05/16/25 05:39 05/16/25 05:42 05/16/25 05:42 Temperature 98.1 F 98.1 F Temperature Source Oral Oral Pulse Rate 75 75 Respiratory Rate 18 18 Respiratory Effort Short of Breath Labored Respiratory Depth Shallow Respiratory Pattern Tachypnea Blood Pressure 102/72 102/72 Blood Pressure Mean 82 82 Pulse Ox 99 99 Oxygen Delivery Method Room Air Room Air Room Air 05/16/25 05:50 05/16/25 05:52 05/16/25 06:42 Temperature 98 F Temperature Source Oral Pulse Rate 75 76 Respiratory Rate 20 H 18 Respiratory Effort Respiratory Depth Respiratory Pattern Tachypnea Blood Pressure 129/72 H Blood Pressure Mean 91 Pulse Ox 99 95 Oxygen Delivery Method Room Air Room Air Positive well nourished, well developed and obese General Appearance ED: well developed and NAD Nutritional Appearance: obese HEENT Reports moist mucous membranes normocephalic and atraumatic Eyes PERRL and EOMs intact bilaterally Neck full ROM and supple Resp normal respiratory effort Resp Narrative: Mild expiratory wheezes, otherwise clear. Cardio regular rate, regular rhythm and no murmurs GI non-tender and non-distended Auscultation: normoactive bowel sounds Palpation: soft Back/Spine no CVA tenderness General Back: other FROM Extremity normal to inspection Extremity Narrative: Status post right BKA and left AKA General Extremety ED: Negative for edema, pulses abnormal or tenderness General Extremity: Negative for edema or pulses abnormal Neuro oriented x3, CN's II-XII intact bilaterally and no sensory deficits noted Sensorium / Orientation: awake and alert Motor Exam: strength 5/5 throughout Skin no rashes or lesions noted and no wounds Physical Exam Const Vital Signs: 05/16/25 05:39 05/16/25 05:42 05/16/25 05:42 Temperature 98.1 F 98.1 F Temperature Source Oral Oral Pulse Rate 75 75 Respiratory Rate 18 18 Respiratory Effort Short of Breath Labored Respiratory Depth Shallow Respiratory Pattern Tachypnea Blood Pressure 102/72 102/72 Blood Pressure Mean 82 82 Pulse Ox 99 99 Oxygen Delivery Method Room Air Room Air Room Air 05/16/25 05:50 05/16/25 05:52 05/16/25 06:42 Temperature 98 F Temperature Source Oral Pulse Rate 75 76 Respiratory Rate 20 H 18 Respiratory Effort Respiratory Depth Respiratory Pattern Tachypnea Blood Pressure 129/72 H Blood Pressure Mean 91 Pulse Ox 99 95 Oxygen Delivery Method Room Air Room Air MDM MDM MDM Narrative Medical decision making narrative: In context of COVID, I am less concerned about COVID-pneumonia since her vital signs are normal andshe is not hypoxic with 99% saturations on room air. However she is having chest pain, some of which that feels pressure/tight like her asthma/COPD, and some that is lateralizing to the right. COVID increases the chances of her having venous thromboembolic disease and she apparently has ahistory ofpulmonary embolus in the past and is no longer anticoagulated upon reviewing her longterm medication list. For that reason, I sought to work her up for pulmonary embolus and pneumonia. 1 view chest x-ray on my interpretation shows no signs of pneumonia, radiology in agreement. Labs are noted, her D-dimer returns elevated even when corrected for age, therefore not performed left to rule out PEand will need to undergo CT inject his chest in order to do so. Patient is doing better after breathing treatments, chest is less tight, she is less dyspneic and able to converse in full sentences without difficulty or distress. Her vital signs are normal. CTA will be checked out tooncoming ED physician at shift change, if negative for PE, I support send her back to longterm with prescriptionfor steroids to treat her for an asthma/COPD exacerbation caused likely by COVID. If positive, she is stable andcan probably still be discharged back, just with adding anticoagulation. Lab Data Attestation: I reviewed the patient's lab results. Labs: Laboratory Results - last 24 hr 05/16/25 05/16/25 06:15 06:22 WBC 9.2 RBC 4.70 Hgb 13.2 Hct 41.2 MCV 87.7 MCH 28.1 MCHC 32.0 RDW Std Deviation 48.9 H RDW Coeff of Naga 15.0 H Plt Count 246 MPV 10.5 Immature Gran % (Auto) 0.800 Neut % (Auto) 65.3 Lymph % (Auto) 22.6 Rabun % (Auto) 10.3 H Eos % (Auto) 0.3 Baso % (Auto) 0.7 Absolute Neuts (auto) 6.0 Absolute Lymphs (auto) 2.07 Nucleated RBC % 0 D-Dimer Quant (PE/DVT) 0.89 H* Sodium 137 Potassium 4.0 Chloride 103 Carbon Dioxide 21.7 Anion Gap 12 BUN 18 Creatinine 0.62 L Estim Creat Clear Calc 110.12 Est GFR (MDRD) Non-Af 99 BUN/Creatinine Ratio 29.2 H Glucose 114 H Calcium 9.2 Troponin T High Sens < 6 D Radiography Diagnostic Testing: Clinical Impression(s) from Imaging Studies Chest X-Ray 05/16/25 06:32 IMPRESSION: No acute cardiopulmonary abnormalities. Reading Location: [facility] Chest CTA 05/16/25 08:29 IMPRESSION: No evidence of pulmonary embolism, with limited evaluation of the bilateral lower lobe distal subsegmental pulmonary arteries. Reading Location: [facility] Rhythm Strip Rhythm Strip: Sinus Rhythm Rate: 70 Ectopy: None EKG Initial EKG: Attestation: I personally reviewed and interpreted this EKG as follows: Interpretation: Sinus Rhythm and No Acute Injury Pattern Comments: Nml axis & intervals; nml EKG [facility] Lab Data Labs: Laboratory Results - last 24 hr 05/16/25 05/16/25 06:15 06:22 WBC 9.2 RBC 4.70 Hgb 13.2 Hct 41.2 MCV 87.7 MCH 28.1 MCHC 32.0 RDW Std Deviation 48.9 H RDW Coeff of Naga 15.0 H Plt Count 246 MPV 10.5 Immature Gran % (Auto) 0.800 Neut % (Auto) 65.3 Lymph % (Auto) 22.6 Rabun % (Auto) 10.3 H Eos % (Auto) 0.3 Baso % (Auto) 0.7 Absolute Neuts (auto) 6.0 Absolute Lymphs (auto) 2.07 Nucleated RBC % 0 D-Dimer Quant (PE/DVT) 0.89 H* Sodium 137 Potassium 4.0 Chloride 103 Carbon Dioxide 21.7 Anion Gap 12 BUN 18 Creatinine 0.62 L Estim Creat Clear Calc 110.12 Est GFR (MDRD) Non-Af 99 BUN/Creatinine Ratio 29.2 H Glucose 114 H Calcium 9.2 Troponin T High Sens < 6 D Radiography Diagnostic Testing: Clinical Impression(s) from Imaging Studies Chest X-Ray 05/16/25 06:32 IMPRESSION: No acute cardiopulmonary abnormalities. Reading Location: [facility] Chest CTA 05/16/25 08:29 IMPRESSION: No evidence of pulmonary embolism, with limited evaluation of the bilateral lower lobe distal subsegmental pulmonary arteries. Reading Location: [facility] Treatment and Re-Evaluation :: Patient care was transferred to in at change of shift. Patient had extravasation of her contrast into her left breast. There was no blanching initially. When she returned from the radiology suite andshe was evaluated thebreast appeared normal other than some slight swelling where there contrast extravasated. There is no erythema, warmth, induration. Capillary fill is normal. The radiology report was reviewed. Suspect her D-dimer is elevated due to the fact that she has COVID-19. Plan is to discharge in stable condition. Home- going's were reviewed and she has a prescription for Decadron's since she is positive for COVID-19. Discharge Plan Triage Chief Complaint: Cough ED Provider: August Hobson Dx/Rx/DC Orders Clinical Impression: Acute asthma exacerbation, Chest pain, Acute bronchitis due to COVID-19 virus, Sleep apnea, Morbid obesity, Hypertension, Elevated d-dimer Instructions: ED Asthma, Acute (Adult) Prescriptions: New dexamethasone 6 mg tablet 6 mg PO DAILY Qty: 4 0RF Rx Instructions: start 05/17 No Action albuterol sulfate 90 mcg/actuation HFA aerosol inhaler 2 puff inhalation Q6H PRN (Reason: shortness of breath or wheezing) Qty: 8.5 6RF Rx Instructions: administer with spacer metformin 850 mg tablet 850 mg PO BID sertraline 50 mg tablet 50 mg PO DAILY ondansetron 4 mg tablet,disintegrating 4 mg PO Q6H PRN (Reason: nausea and vomiting) potassium chloride 20 mEq tablet extended release 20 meq PO BID valsartan 320 mg tablet 320 mg PO DAILY pramipexole 1.5 mg tablet 3 mg PO QHS amitriptyline 100 mg tablet 100 mg PO QHS cholecalciferol (vitamin D3) 1,250 mcg (50,000 unit) capsule 1,250 mcg PO MO metoprolol succinate 50 mg tablet extended release 24 hr 50 mg PO DAILY montelukast 10 mg Tablet 10 mg PO DAILY albuterol sulfate 2.5 mg /3 mL (0.083 %) solution for nebulization 1.25 mg inhalation Q4H PRN (Reason: sob/wheezing) atorvastatin 10 mg tablet 10 mg PO QHS docusate sodium [Colace] 100 mg capsule 100 mg PO DAILY fluticasone propion-salmeterol [Advair Diskus] 250-50 mcg/dose blister with device 1 inh inhalation BID gabapentin 300 mg capsule 300 mg PO DAILY loratadine [Allergy Relief (loratadine)] 10 mg tablet 10 mg PO DAILY melatonin 5 mg tablet 5 mg PO QHS multivitamin [Daily Multi-Vitamin] Tablet 1 tab PO DAILY acetaminophen [Acetaminophen Extra Strength] 500 mg tablet 1,000 mg PO Q8H PRN (Reason: pain) hydroxyzine pamoate [Vistaril] 25 mg capsule 25 mg PO Q6H PRN (Reason: anxiety) buprenorphine HCl [Belbuca] 300 mcg film 300 mcg BUCCAL BID diphenhydramine HCl [Benadryl Allergy] 25 mg tablet 25 mg PO Q4H PRN (Reason: allergic reaction) Biotene Dry Mouth Oral Rinse Mouthwash 15 ml mucous membrane DAILY bisacodyl 10 mg suppository 10 mg MO QHS PRN (Reason: constipation) Rx Instructions: USE NEEDED IF NO BM 8 HOURS AFTER MOM ADMINISTRATION mineral oil [Fleet Mineral Oil] Enema 118 ml MO DAILY PRN (Reason: constipation) Rx Instructions: ADMINISTER ONCE DAILY IF NO BM 8 HOURS AFTER RECEIVING SUPPOSITORY. IF NO BM WITHIN 1 HOUR AFTER RECEIVING ENEMA NOTIFY MD. gabapentin 300 mg capsule 600 mg PO QHS Patient Comments: TAKE 1 CAPSULE IN AM, 2 CAPSULES AT BEDTIME. ibuprofen [Advil] 200 mg tablet 400 mg PO Q12H PRN (Reason: pain) lidocaine [DermacinRx Lidocan] 5 % adhesive patch,medicated 1 patch topical QHS Rx Instructions: APPLY TO THE LEFT SHOULDER AT BEDTIME. REMOVE AFTER 12 HOURS. magnesium hydroxide [Dulcolax (magnesium hydroxide)] 400 mg/5 mL suspension 2,400 mg PO DAILY PRN (Reason: constipation) Rx Instructions: GIVE ONCE DAILY PER BOWEL PROTOCOL. ADMINISTER IF NO BM IN 3 CONSECUTIVE DAYS polyethylene glycol 3350 [ClearLax] 17 gram/dose powder 17 g PO DAILY PRN (Reason: constipation) guaifenesin [Mucinex] 600 mg tablet extended release 12hr 600 mg PO BID PRN (Reason: congestion) guaifenesin [Adult Tussin Chest Congestion] 100 mg/5 mL liquid 100 mg PO Q6H PRN (Reason: cough) ropinirole 0.25 mg tablet 0.25 mg PO TID Primary Care Provider: Louis Penn Referrals: Louis Penn MD [Primary Care Provider] - Print Language: Ugandan Disposition Disposition: Home, Self Care What to do if you have Problems For any increased pain, shortness of breath, bleeding, nausea or vomiting, chestpain, or any unexpected problems, contact your Primary Care Provider. Call [facility] ([phone]) or report tothe closest Emergency Room. Call 911 if necessary. 05/16/25 07 Cosigner Signature (if applicable): 05/16/25 0935 CC: Dr. Louis Penn MD ~ Signed [facility]08-16-2025 Radiology Diagnostic study note [facility] Imaging Services [address] [place], [place] [address] CTA Chest W/WO Contrast MR#: [id number] Acct: [id number] Name: SIOBHAN HAAS Rep #: [id number] : 1960 F 64 From: Brian Nava MD PCP: Dr. Louis Penn MD Status: REG E R Study:CTA Chest W/WO Contrast Date of Exam: 05/16/25 Exam# [id number] Ordering Dr: Christo Hobson MD PROCEDURE: CTA CHEST W/ CONTRAST 05/16/2025 REASON FOR EXAM: R>L CHEST PAIN, COVID, ELEVATED D-DIMER. History of PE and COPD. TECHNIQUE: CTA CHEST W/WO CONTRAST Multiplanar Sagittal and Coronal images were obtained. CONTRAST: Isovue 370 VOLUME: 100 mL One or more dose reduction techniques were used (e.g., Automated exposure control, adjustment of the mA and/or kV according to patient size, use of iterative reconstruction technique). RADIATION DOSE SUMMARY: CTDlvol: 14.20, 11.39, 14.20 mGy DLP: 931 mGycm FINDINGS: LIMITATIONS: PORTIONS OF THE PATIENT'S CHEST WALL IS OUT OF THE FIELD OF VIEW. STREAK ARTIFACT FROMDENSE SUBCUTANEOUS CONTRAST MATERIAL IN THE LEFT ANTERIOR CHEST WALL. PULMONARY ARTERIES Respiratory motion and heterogeneous opacification limits evaluation of the distal subsegmental pulmonary arteries in both lower lobes. No intraluminal filling defect suspicious for PE in the remaining pulmonary arteries. AORTA No thoracic aortic aneurysm or dissection. Minimal calcified atherosclerosis. LUNGS No focal airspace consolidation. No pulmonary mass. Minimal dependent atelectasis bilaterally. PLEURAL SPACES No pleural effusion. No pneumothorax. HEART Mild cardiomegaly. No significant pericardial effusion. MEDIASTINUM/HILUM No significant lymphadenopathy. CHEST WALL The chest wall is unremarkable. BONES No focal osseous abnormality or acute fracture. Degenerative changes of the spine and both glenohumeral joints. Epidural electrode positioned in the neural canal with the tip at the T8 level. UPPER ABDOMEN Images through the upper abdomen are unremarkable. CT/CTA Chest W/WO Contrast IMPRESSION: No evidence of pulmonary embolism, with limited evaluation of the bilateral lower lobe distal subsegmental pulmonary arteries. Reading Location: [id number] CC: Dr. August Hobson MD; Dr. Louis Penn MD ~ Vp Design: Signed [facility]08-16-2025 Radiology Diagnostic study note [facility] Imaging Services [address] [place] [address] Chest 1 View (Portable) MR#: [id number] Acct: [id number] Name: SIOBHAN HAAS Rep #: [id number] : 1960 F 64 From: Jimmie Blackburn MD PCP: Dr. Louis Penn MD Status: REG E R Study:Chest 1 View (Portable) Date of Exam: 05/16/25 Exam# [id number] Ordering Dr: Christo Hobson MD PROCEDURE: CHEST 1 VIEW (PORTABLE) 05/16/2025 REASON FOR EXAM: COUGH SOB COVID POS TECHNIQUE: Frontal view of the chest. COMPARISON: Chest x-ray 01/14/2025. FINDINGS: Hardware: Monitor electrodes overlie the chest. Heart: No cardiomegaly. Lungs: Clear. No pleural effusion or pneumothorax. Bones: No acute bony abnormalities. Other: Spinal stimulators in place. RAD/Chest 1 View (Portable) IMPRESSION: No acute cardiopulmonary abnormalities. Reading Location: [facility] CC: Dr. August Hobson MD; Dr. Louis Penn MD ~ Vp Design: Signed [facility]08-14-2025 NoteTable formatting from the original result was not included. Procedure Nerve Block Indication Intractable neuropathic pain of upper extremity, Chronic pain of both shoulders Medications bupivacaine PF (Marcaine) 0.5 % (5 mg/mL) injection 15 mL triamcinolone acetonide (Kenalog-40) injection 40 mg (Totals for administrations occurring from 0953 to 1008 on 05/14/25) Preprocedure A history and physical has been performed, and patient medication allergies have been reviewed. The patient's tolerance of previous anesthesia has been reviewed. The risks and benefits of the procedure and the sedation options and risks were discussed with the patient. All questions were answered and informed consent obtained. Details of the Procedure Pre-Op Diagnosis: left shoulder pain. Post-Procedure Diagnosis: Same as preop diagnosis Procedure: left Axillary nerve block using ultrasound guidance Surgeon: Enrique Preston MD, PhD Resident/Fellow/Other Clothes Drier Assembler: Lul Hernandez Fellow Procedure Note: Siobhan Haas is a 64 y.o. year old female with left intractable shoulder pain, here for diagnostic axillary nerve block. The patient was identified in the preoperative holding area and informed consent was obtained. The surgical area was marked according to protocol. The patient was transported to the operating room on the [facility] and a timeout was conducted. ASA Standard monitors were applied. Targets: left axillary nerve The patient was transferred to the operating room table and placed in sitting position. The shoulder was prepped and draped in the usual fashion using ChloraPrep and sterile towels. L12-3 Ultrasound transducer was used. Using ultrasound guidance, the humeral shaft was identified on the long axis, and was followed cephalad until the humeral head came into view. The deltoid muscle , triceps , and teres minor muscles were all well-visualized. The transfuse her with moved just a little bit caudad, until the posterior circumflex humeral artery was identified, with the nearby axillary nerve. A 25-gauge needle was then advanced under real-time ultrasound guidance into close proximity to the exiting nerve avoiding the artery. Thereafter, 2 cc 0.5% Bupivacaine and 20 mg methylprednisolone were injected, spread of the injectate was monitored with real-time sonography. There was no pain on injection. The needle was then removed. The patient tolerated the procedure well, was transferred to the recovery room. Hemostasis was ensured. A Band-Aid was applied. The procedure was done without any evidence of complications. The patient was discharged in stable condition. Anesthesia: Local All medications injected were verified to be preservative free and not . Pre-procedure Pain Score: 8 Post-procedure pain Score:3 Enrique Preston MD, PhD Procedure Provider Enrique Preston MD PhD Procedure Location [address] [address] Referring Provider Enrique Preston MD PhD [id number] [place] [id number] NoteTable formatting from the original result was not included. Procedure Nerve Block Indication Intractable neuropathic pain of upper extremity, Chronic pain of both shoulders Medications bupivacaine PF (Marcaine) 0.5 % (5 mg/mL) injection 15 mL triamcinolone acetonide (Kenalog-40) injection 40 mg (Totals for administrations occurring from 0953 to 1008 on 05/14/25) Preprocedure A history and physical has been performed, and patient medication allergies have been reviewed. The patient's tolerance of previous anesthesia has been reviewed. The risks and benefits of the procedure and the sedation options and risks were discussed with the patient. All questions were answered and informed consent obtained. Details of the Procedure Pre-Op Diagnosis: left shoulder pain, Post-Procedure Diagnosis: Same as preop diagnosis Procedure: left suprascapular nerve block using ultrasound guidance Surgeon: Enrique Preston MD, PhD Resident/Fellow/Other Clothes Drier Assembler: Lul Hernandez Fellow Procedure Note: Siobhan Haas is a 64 y.o. year old female with left intractable shoulder pain, here for diagnostic suprascapular nerve block. The patient was identified in the preoperative holding area and informed consent was obtained. The surgical area was marked according to protocol. The patient was transported to the operating room on the [facility] and a timeout was conducted. ASA Standard monitors were applied. Targets: left suprascapular nerve The patient was transferred to the operating room table and placed in sitting position. The shoulder was prepped and draped in the usual fashion using ChloraPrep and sterile towels. L12-3 Ultrasound transducer was used. Using ultrasound guidance, the supraspinatus fossa was examined. The trapezius and supraspinatus muscle were well-visualized. A 22-gauge needle was then advanced under ultrasound guidance into close proximity to the suprascapular nerve deep to the supraspinatus muscle under real-time sonography. Thereafter, 6 cc 0.5% Bupivacaine and 20 mg methylprednisolone were injected, spread of the injectate was monitored with real-time sonography. The needle was then removed. The patient tolerated the procedure well, was transferred to the recovery room. Hemostasis was ensured. A Band-Aid was applied. The procedure was done without any evidence of complications. The patient was discharged in stable condition. Anesthesia: Local All medications injected were verified to be preservative free and not . Pre-procedure Pain Score: 8 Post-procedure pain Score:3 Enrique Preston MD, PhD Procedure Provider Enrique Preston MD PhD Procedure Location [facility] [address] [facility] [address] Referring Provider Enrique Preston MD PhD [address] [place] [id number] History and physical note* Isabelle Gallagher DO - 05/14/2025 10:00 AM EDT Pain Management H&P History Of Present Illness Siobhan Haas is a 64 y.o. female presents for procedure stated below. Endorses no changes in past medical history or medical health since last seen in clinic. Past Medical History She has no past medical history on file. Surgical History She has no past surgical history on file. Social History She reports that she has never smoked. She has never used smokeless tobacco. She reports that she does not drink alcohol and does not use drugs. Family History Family History[1] Allergies Amlodipine, Cefepime, Ketamine, Lisinopril, Clonazepam, Hydromorphone, Prednisone, and Vancomycin Review of Symptoms: Constitutional: Negative for chills, diaphoresis or fever HENT: Negative for neck swelling Eyes:. Negative for eye pain Respiratory:. Negative for cough, shortness of breath or wheezing Cardiovascular:. Negative for chest pain or palpitations Gastrointestinal:. Negative for abdominal pain, nausea and vomiting Genitourinary:. Negative for urgency Musculoskeletal: Positive for back pain. Positive for joint pain. Denies falls within the past 3 months. Skin: Negative for wounds or itching Neurological: Negative for dizziness, seizures, loss of consciousness and weakness Endo/Heme/Allergies: Does not bruise/bleed easily Psychiatric/Behavioral: Negative for depression. The patient does not appear anxious. Pre-sedation Evaluation ASA class 2 Mallampati score 2 PHYSICAL EXAM Vitals signs reviewed Constitutional: General: Not in acute distress Appearance: Normal appearance. Not ill-appearing. HENT: Head: Normocephalic and atraumatic Eyes: Conjunctiva/sclera: Conjunctivae normal Cardiovascular: Rate and Rhythm: Normal rate and regular rhythm Pulmonary: Effort: No respiratory distress Abdominal: Palpations: Abdomen is soft Musculoskeletal: WESLEY Skin: General: Skin is warm and dry Neurological: General: No focal deficit present Psychiatric: Mood and Affect: Mood normal Behavior: Behavior normal Last Recorded Vitals There were no vitals taken for this visit. Relevant Results Current Outpatient Medications Medication Instructions acetaminophen (TYLENOL) 1,000 mg, oral, Every 8 hours PRN albuterol (Proventil HFA) 90 mcg/actuation inhaler 2 puffs, inhalation, Every 4 hours PRN albuterol 0.63 mg, nebulization, Every 4 hours PRN amitriptyline (ELAVIL) 100 mg, oral, Nightly PRN atorvastatin (LIPITOR) 10 mg, oral, Nightly bisacodyl (DULCOLAX) 10 mg, rectal, Daily PRN buprenorphine (BELBUCA) 300 mcg, buccal, Every 12 hours scheduled cholecalciferol (VITAMIN D3) 25 mcg, oral, Daily diphenhydrAMINE (SOMINEX) 25 mg, oral, 4 times daily PRN docusate sodium (COLACE) 100 mg, oral, Daily fluticasone (Flonase) 50 mcg/actuation nasal spray 1 spray, Each Nostril, Daily, Shake gently. Before first use, prime pump. After use, clean tip and replace cap. fluticasone propion-salmeteroL (Advair Diskus) 250-50 mcg/dose diskus inhaler 1 puff, inhalation, 2times daily RT, Rinse mouth with water after use to reduce aftertaste and incidence of candidiasis.Do not swallow. gabapentin (NEURONTIN) 300 mg, oral, Daily PRN gabapentin (NEURONTIN) 600 mg, oral, Nightly guaiFENesin (ROBITUSSIN) 200 mg, oral, 4 times daily PRN hydrOXYzine pamoate (VISTARIL) 25 mg, oral, Every 6 hours PRN ibuprofen 400 mg, oral, Every 12 hours PRN lidocaine 4 % patch 1 patch, transdermal, Daily, Remove & discard patch within 12 hours or as directed by MD. loratadine (CLARITIN REDITABS) 10 mg, oral, Daily magnesium hydroxide (Milk of Magnesia) 400 mg/5 mL suspension 30 mL, oral, Daily PRN melatonin 5 mg, oral, Nightly PRN metFORMIN (GLUCOPHAGE) 850 mg, oral, 2 times daily (morning and late afternoon) metoprolol tartrate (LOPRESSOR) 50 mg, oral, Daily mineral oil enema 1 enema, rectal, Once moisturizing mouth (Biotene Dry Mouth) solution 15 mL, Swish & Spit, Nightly, Dry mouth montelukast (SINGULAIR) 10 mg, oral, Nightly ondansetron (ZOFRAN) 4 mg, oral, 4 times daily PRN pantoprazole (PROTONIX) 20 mg, oral, Daily before breakfast, Do not crush, chew, or split. polyethylene glycol (GLYCOLAX, MIRALAX) 17 g, oral, Daily PRN rOPINIRole (REQUIP) 0.25 mg, oral, 3 times daily sertraline (ZOLOFT) 50 mg, oral, Daily, depression valsartan (DIOVAN) 320 mg, oral, Daily XR cervical spine 2-3 views 03/12/2023 Narrative Imaging Result: X-rays of the cervical spine were reviewed with the patient. The x-rays show normal anatomic alignment no acute soft tissue or bony abnormality. There was slight loss of cervical lordosis noted on lateral. Jani Morales MD, [facility] [place] [phone] ASSESSMENT/PLAN Siobhan Haas is a 64 y.o. female here for Left suprascapular and axillary nerve block under ultrasound Patient denies any recent antibiotic use or infections, denies any blood thinner use, and denies contrast or local anesthetic allergies Risks, benefits, alternatives discussed. All questions answered to the best of my ability. Patient agrees to proceed. Our plan is as follows: - Proceed with aforementioned procedure Isabelle Gallagher DO Chronic Pain Management Fellow [1] No family history on file. [facility] Work Phone: [phone] History and physical note* Isabelle Gallagher DO - 05/14/2025 10:00 AM EDT Pain Management H&P History Of Present Illness Siobhan Haas is a 64 y.o. female presents for procedure stated below. Endorses no changes in past medical history or medical health since last seen in clinic. Past Medical History She has no past medical history on file. Surgical History She has no past surgical history on file. Social History She reports that she has never smoked. She has never used smokeless tobacco. She reports that she does not drink alcohol and does not use drugs. Family History Family History[1] Allergies Amlodipine, Cefepime, Ketamine, Lisinopril, Clonazepam, Hydromorphone, Prednisone, and Vancomycin Review of Symptoms: Constitutional: Negative for chills, diaphoresis or fever HENT: Negative for neck swelling Eyes:. Negative for eye pain Respiratory:. Negative for cough, shortness of breath or wheezing Cardiovascular:. Negative for chest pain or palpitations Gastrointestinal:. Negative for abdominal pain, nausea and vomiting Genitourinary:. Negative for urgency Musculoskeletal: Positive for back pain. Positive for joint pain. Denies falls within the past 3 months. Skin: Negative for wounds or itching Neurological: Negative for dizziness, seizures, loss of consciousness and weakness Endo/Heme/Allergies: Does not bruise/bleed easily Psychiatric/Behavioral: Negative for depression. The patient does not appear anxious. Pre-sedation Evaluation ASA class 2 Mallampati score 2 PHYSICAL EXAM Vitals signs reviewed Constitutional: General: Not in acute distress Appearance: Normal appearance. Not ill-appearing. HENT: Head: Normocephalic and atraumatic Eyes: Conjunctiva/sclera: Conjunctivae normal Cardiovascular: Rate and Rhythm: Normal rate and regular rhythm Pulmonary: Effort: No respiratory distress Abdominal: Palpations: Abdomen is soft Musculoskeletal: WESLEY Skin: General: Skin is warm and dry Neurological: General: No focal deficit present Psychiatric: Mood and Affect: Mood normal Behavior: Behavior normal Last Recorded Vitals There were no vitals taken for this visit. Relevant Results Current Outpatient Medications Medication Instructions acetaminophen (TYLENOL) 1,000 mg, oral, Every 8 hours PRN albuterol (Proventil HFA) 90 mcg/actuation inhaler 2 puffs, inhalation, Every 4 hours PRN albuterol 0.63 mg, nebulization, Every 4 hours PRN amitriptyline (ELAVIL) 100 mg, oral, Nightly PRN atorvastatin (LIPITOR) 10 mg, oral, Nightly bisacodyl (DULCOLAX) 10 mg, rectal, Daily PRN buprenorphine (BELBUCA) 300 mcg, buccal, Every 12 hours scheduled cholecalciferol (VITAMIN D3) 25 mcg, oral, Daily diphenhydrAMINE (SOMINEX) 25 mg, oral, 4 times daily PRN docusate sodium (COLACE) 100 mg, oral, Daily fluticasone (Flonase) 50 mcg/actuation nasal spray 1 spray, Each Nostril, Daily, Shake gently. Before first use, prime pump. After use, clean tip and replace cap. fluticasone propion-salmeteroL (Advair Diskus) 250-50 mcg/dose diskus inhaler 1 puff, inhalation, 2times daily RT, Rinse mouth with water after use to reduce aftertaste and incidence of candidiasis.Do not swallow. gabapentin (NEURONTIN) 300 mg, oral, Daily PRN gabapentin (NEURONTIN) 600 mg, oral, Nightly guaiFENesin (ROBITUSSIN) 200 mg, oral, 4 times daily PRN hydrOXYzine pamoate (VISTARIL) 25 mg, oral, Every 6 hours PRN ibuprofen 400 mg, oral, Every 12 hours PRN lidocaine 4 % patch 1 patch, transdermal, Daily, Remove & discard patch within 12 hours or as directed by MD. loratadine (CLARITIN REDITABS) 10 mg, oral, Daily magnesium hydroxide (Milk of Magnesia) 400 mg/5 mL suspension 30 mL, oral, Daily PRN melatonin 5 mg, oral, Nightly PRN metFORMIN (GLUCOPHAGE) 850 mg, oral, 2 times daily (morning and late afternoon) metoprolol tartrate (LOPRESSOR) 50 mg, oral, Daily mineral oil enema 1 enema, rectal, Once moisturizing mouth (Biotene Dry Mouth) solution 15 mL, Swish & Spit, Nightly, Dry mouth montelukast (SINGULAIR) 10 mg, oral, Nightly ondansetron (ZOFRAN) 4 mg, oral, 4 times daily PRN pantoprazole (PROTONIX) 20 mg, oral, Daily before breakfast, Do not crush, chew, or split. polyethylene glycol (GLYCOLAX, MIRALAX) 17 g, oral, Daily PRN rOPINIRole (REQUIP) 0.25 mg, oral, 3 times daily sertraline (ZOLOFT) 50 mg, oral, Daily, depression valsartan (DIOVAN) 320 mg, oral, Daily XR cervical spine 2-3 views 03/12/2023 Narrative Imaging Result: X-rays of the cervical spine were reviewed with the patient. The x-rays show normal anatomic alignment no acute soft tissue or bony abnormality. There was slight loss of cervical lordosis noted on lateral. Jani Morales MD, [facility] [phone] ASSESSMENT/PLAN Siobhan Haas is a 64 y.o. female here for Left suprascapular and axillary nerve block under ultrasound Patient denies any recent antibiotic use or infections, denies any blood thinner use, and denies contrast or local anesthetic allergies Risks, benefits, alternatives discussed. All questions answered to the best of my ability. Patient agrees to proceed. Our plan is as follows: - Proceed with aforementioned procedure Isabelle Gallagher DO Chronic Pain Management Fellow [1] No family history on file. documented in this [facility] Work Phone: [phone] Radiology Diagnostic study note [facility] Imaging Services [address] [place] [address] [phone] Chest without Contrast MR#: [id number] Acct: [id number] Name: SIOBHAN HAAS Rep #: [id number] : 1960 F 64 From: Tye Cotton MD PCP: Dr. Louis Penn MD Status: SHARRI JESUS Study:Chest without Contrast Date of Exam: 05/08/25 Exam# [id number] Ordering Dr: Malvin Edge NP [employer]PA[employer]ER-C PROCEDURE: CHEST WITHOUT CONTRAST 05/08/2025 REASON FOR EXAM: SOLITARY PULMONARY NODULE Follow-up examination. TECHNIQUE: Chest CT without contrast. Coronal and Sagittal reconstruction series were provided. One or more dose reduction techniques were used (e.g., Automated exposure control, adjustment of the mA and/or kV according to patient size, use of iterative reconstruction technique RADIATION DOSE SUMMARY: CTDlvol: 22.71 mGy DLP: 721.87 mGycm COMPARISON: Prior examination dated January 14, 2025. FINDINGS: Hardware: None Lymph nodes: Small benign-appearing bilateral axillary lymph nodes. Heart and Vasculature: The heart is nonenlarged. Coronary Artery Calcifications: Present Lungs and Airways: The previously seen left lower lobe infiltrate as cleared. No nodules are seen. Pleura: No pleural effusion. Upper Abdomen: Unremarkable. Bones: Degenerative changes of the thoracic spine. CT/Chest without Contrast IMPRESSION: Coronary artery calcification (CAC) is is present Previously seen left lower lobe infiltrate as cleared. Reading Location: [place] [address] CC: GINO Edge; Dr. Louis Penn MD ~ Vp Design: Signed [facility]08-07-2025 History of Present illness Narrative* Loly Ortiz MD - 05/07/2025 1:15 PM EDT Chief Complain New Patient Visit (For generalized body pain, since 89. Deny neck and back surgery. No hip or knee pain. No image on file ith Uh. Was using the But rans patch and it did not help. Was referred by Madelin for ketamine infusions) History Of Present Illness Siobhan Haas is a 64 y.o. female here for evaluation of widespread chronic pain. The patient hasbeen experiencing these symptoms for last severalyear(s). The patient describes the pain as aching.The patient's current pain score is 7 on a scale from 0-10. The pain is worsened by moving a lot and is alleviated by nothing relieves the pain. Since the start of the symptoms the pain has been worse. The patient denies any fever, chills, weight loss, weakness, numbness, bladder/ bowel incontinence,history of cancer, history of IV drug abuse, recent trauma. 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 Surgical History She has no past surgical history on file. Social History She reports that she has never smoked. She has never used smokeless tobacco. She reports that she does not drink alcohol and does not use drugs. Family History Family History[1] Allergies Amlodipine, Cefepime, Ketamine, Lisinopril, Clonazepam, Hydromorphone, Prednisone, and Vancomycin Review of Systems Review of Systems Constitutional: Negative for fever. HENT: Negative for ear pain. Eyes: Negative for pain. Respiratory: Negative for shortness of breath. Cardiovascular: Negative for chest pain. Gastrointestinal: Negative for blood in stool. Endocrine: Negative for heat intolerance. Genitourinary: Negative for difficulty urinating. Musculoskeletal: Positive for myalgias. Skin: Negative for rash. Allergic/Immunologic: Negative for food allergies. Neurological: Negative for weakness. Hematological: Negative for adenopathy. Psychiatric/Behavioral: Negative for suicidal ideas. Physical Exam Physical Exam Constitutional: Appearance: Normal appearance. HENT: Head: Normocephalic and atraumatic. Eyes: Extraocular Movements: Extraocular movements intact. Pupils: Pupils are equal, round, and reactive to light. Pulmonary: Effort: Pulmonary effort is normal. Neurological: Mental Status: She is alert and oriented to person, place, and time. Psychiatric: Mood and Affect: Mood normal. Behavior: Behavior normal. Last Recorded Vitals Blood pressure 122/68, pulse 80, temperature 36.2 C (97.2 F), resp. rate 18, height (!) 1.397 m (4'7), weight 149 kg (328 lb), SpO2 96%. Reviewed Labs ntains abnormal data CBC auto differential Order: [id number] Component Ref Range & Units 1 yr ago Auto WBC 3.6 - 10.7 10*3/uL 5.4 RBC 3.8 - 5.20 10*6/uL 4.11 Hemoglobin 11.7 - 16.0 g/dL 10.9 Low Hematocrit 35.0 - 47.0 % 34 Low MCV 80.0 - 98.0 fL 82.6 MCH 26.0 - 34.0 pg 26.4 MCHC 32.0 - 36.0 % 32 RDW 11.5 - 14.5 % 15.3 High Platelets 140 - 440 10*3/uL 237 MPV 7.4 - 12.4 fL 8.7 nRBC 0.0 - 2.0 /100 WBCs 0 Neutrophils Relative 40.0 - 80.0 % 60.5 Lymphocytes Relative 20.0 - 40.0 % 22.4 Monocytes Relative 2.0 - 10.0 % 10.9 High Eosinophils Relative 1.0 - 6.0 % 5.6 Basophils Relative 0.0 - 2.0 % 0.6 Neutrophils Absolute 1.8 - 7.0 10*3/uL 3.3 Lymphocytes Absolute 1.0 - 4.3 10*3/uL 1.2 Monocytes Absolute 0.0 - 0.8 10*3/uL 0.6 Eosinophils Absolute 0.0 - 0.5 10*3/uL 0.3 Basophils Absolute 0.0 - 0.2 10*3/uL 0 Resulting Agency [facility] ntains abnormal data Comprehensive metabolic panel Order: [id number] Component Ref Range & Units 1 yr ago SODIUM 135 - 145 mmol/L 137 POTASSIUM 3.5 - 5.1 mmol/L 4 CHLORIDE 98 - 107 mmol/L 104 CARBON DIOXIDE 22 - 30 mmol/L 24 ANION GAP 3 - 13 mmol/L 10 UREA NITROGEN 7 - 17 mg/dL 17 CREATININE 0.52 - 1.04 mg/dL 0.59 GLUCOSE 70 - 100 mg/dL 125 High CALCIUM 8.4 - 10.4 mg/dL 8.7 AST (SGOT) 15 - 46 U/L 23 ALT 0 - 34 U/L 23 ALKALINE PHOSPHATASE 38 - 126 U/L 130 High ALBUMIN 3.5 - 5.0 g/dL 3.6 BILIRUBIN, TOTAL 0.2 - 1.3 mg/dL 0.4 TOTAL PROTEIN 6.3 - 8.2 g/dL 6.8 eGFR >60.0 mL/min/1.73m*2 >90.0 Assessment/Plan Encounter Diagnoses Name Primary? Fibromyalgia Yes Phantom pain Siobhan Haas is a 64 y.o. female here for evaluation of chronic widespread pain, bilateral phantom limb pain. 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 She has also been diagnosed with fibromyalgia since . She has previously triedmultiple different medications including opioids with limited benefit. She is here for consideration of ketamine lidocaine and propofol infusions. She does not have any obvious contraindications. Shedoes appear to be reasonable candidate. Discussed risks, benefits and alternatives. She wants to proceed with the opiate sparing ketamine lidocaine prophy infusions at our center. Loly Ortiz MD [1] No family history on file. documented in this [facility] Work Phone: [phone] History of Present illness Narrative* Dean Kim MD - 04/14/2025 1:30 PM EDT Subjective Patient ID: Siobhan Haas is a 64 y.o. female with a past medical history of fibromyalgia, obesity, COPD, HTN, metabolic disease, FAY on BiPAP, L AKA and R BKA here for an evaluation for a pain patch. HPI: Siobhan is a pleasant 64 year old female with a past medical history of fibromyalgia, obesity, COPD, HTN, metabolic disease, FAY on BiPAP, L AKA and R BKA sent to the clinic on referral for a pain pump. She has been battling fibromyalgia for decades and the pain only seems to be worsening. She was r eferred to us for a pain pump. The pain is all over and hurts all the time. She is on gabapentin 300mg BID since she had an adverse effect years ago when on the max dose. Patient is willing to increase her dose if needed. She has been using buprenorphine patches without much benefit. Patient states that she has never had any adverse effects to any opoid medications. She also has terrible shoulder pain and noted that she needs to have her shoulders replaced at somepoint, but her current risk of infection is too high. She has been admitted multiple times for necrotizing fascitis, one which led to her lower limb amputation. Review of Systems 13-point ROS done and negative except for HPI. No current outpatient medications Medical History[1] Surgical History[2] Family History[3] RX Allergies[4] Objective There were no vitals filed for this visit. Physical Exam General: NAD, well groomed, well nourished, left AKA & right BKA Eyes: Non-icteric sclera, EOMI Ears, Nose, Mouth, and Throat: External ears and nose appear to be without deformity or rash. No lesions or masses noted. Hearing is grossly intact. Neck: Trachea midline Respiratory: Nonlabored breathing Cardiovascular: +1 peripheral edema Skin: No rashes or open lesions/ulcers identified on skin. Psychiatric: Alert, orientation to person, place, and time. Cooperative. MSK: generalized myofascial pain all over, shoulder strength 4/5 in all directions Assessment/Plan Siobhan is a 64 yr old female with a PMH of fibromyalgia, metabolic syndrome, bilateral lower limb amputation with a hx of multiple hospitalizations for infection. She presents today with persisting pains from her fibromyalgia that are all over. She specifically has intense pain in her shoulders but is not a candidate for surgery at this time. She was referred for consideration of intrathecal drug delivery. We informed the patient that this would not be an optimal therapy for her condition. Plan: -Refer to Dr. Preston for consideration of potential suprascapular nerve RFA/cryo vs SPRINT PNS -Refer to Dr. Ortiz for Ketamine therapy The patient was invited to contact us back anytime with any questions or concerns and follow-up with us in the office as needed. This note was generated with the aid of dictation software, there may be typos despite my attempts at proofreading. [1] No past medical history on file. [2] No past surgical history on file. [3] No family history on file. [4] Not on File Cosigned by Mili Oliveros MD PhD at 04/14/2025 4:11 PM EDT documented in this [facility] Work Phone: 1([phone]) 613-335104-19-2025 [facility] Medical Records Department [address] [place] [id number] Discharge Summary 01/17/25 1550 MR#: [id number] Acct: [id number] Name: SIOBHAN HAAS Rep #: [id number] : 1960 64 From: Rigo Trinidad MD PCP: Dr. Louis Penn MD Status:DIS IN Location: [facility] [id number] Providers Date of Admission: 01/14/25 Primary Care Physician: Dr. Louis Penn MD Reason For Visit: RESP FAILURE ON BIPAP DUE TO PNEUMONIA Diagnosis Discharge Diagnosis (1) Acute hypoxemic respiratory failure: Status: Acute Code(s): J96.01 - Acute respiratory failure with hypoxia (2) Pneumonia: Status: Acute Code(s): J18.9 - Pneumonia, unspecified organism Medications at Discharge Home Medications albuterol sulfate 90 mcg/actuation aerosol inhaler 2 puff inhalation Q6H PRN shortness of breath or wheezing #8.5 grams 05/11/21 valsartan 320 mg tablet 320 mg PO DAILY heart 05/19/21 omeprazole 40 mg capsule,delayed release 40 mg PO DAILY gerd 06/15/21 pramipexole 1.5 mg tablet 3 mg PO QHS RESTLESS LEG SYNDROME 06/15/21 amitriptyline 100 mg tablet 100 mg PO QHS PHANTOM PAIN/DEPRESSION 08/31/22 cholecalciferol (vitamin D3) 1,250 mcg (50,000 unit) capsule 1,250 mcg PO MO SUPPLEMENT 08/31/22 metoprolol succinate 50 mg tablet,extended release 24 hr 50 mg PO DAILY blood pressure 10/16/22 montelukast 10 mg tablet 10 mg PO DAILY asthma 10/16/22 albuterol sulfate 2.5 mg/3 mL (0.083 %) solution for nebulization 1.25 mg inhalation Q4H PRN sob/wheezing 07/21/23 atorvastatin 10 mg tablet 10 mg PO QHS cholesterol 07/21/23 docusate sodium 100 mg capsule (Colace) 100 mg PO DAILY constipation 07/21/23 fluticasone 250 mcg-salmeterol 50 mcg/dose blistr powdr for inhalation (Advair Diskus) 1 inh inhalation BID copd 07/21/23 fluticasone propionate 50 mcg/actuation nasal spray,suspension (Flonase Allergy Relief) 1 spray intranasal DAILY allergies 07/21/23 gabapentin 300 mg capsule 300 mg PO DAILY phantom pain 07/21/23 loratadine 10 mg tablet (Allergy Relief (loratadine)) 10 mg PO DAILY allergies 07/21/23 melatonin 5 mg tablet 5 mg PO QHS sleep 07/21/23 multivitamin (Daily Multi-Vitamin tablet) 1 tab PO DAILY supplement 07/21/23 metformin 850 mg tablet 850 mg PO BID DIABETES 05/06/24 sertraline 50 mg tablet 50 mg PO DAILY DEPRESSION 05/06/24 acetaminophen 500 mg tablet (Acetaminophen Extra Strength) 1,000 mg PO Q8H PRN pain 05/08/24 hydroxyzine pamoate 25 mg capsule (Vistaril) 25 mg PO Q6H PRN anxiety 05/08/24 bisacodyl 10 mg rectal suppository 10 mg MO QHS PRN constipation 01/14/25 buprenorphine HCl 300 mcg buccal film (Belbuca) 300 mcg buccal BID 01/14/25 diphenhydramine HCl 25 mg tablet (Benadryl Allergy) 25 mg PO Q4H PRN allergic reaction 01/14/25 gabapentin 300 mg capsule 600 mg PO QHS FOR PHANTOM PAIN 01/14/25 guaifenesin 100 mg/5 mL oral liquid (Adult Tussin Chest Congestion) 200 mg PO Q6H PRN cough 01/14/25 guaifenesin 600 mg tablet, extended release 12 hr (Mucinex) 600 mg PO BID PRN congestion 01/14/25 ibuprofen 200 mg tablet (Advil) 400 mg PO Q12H PRN pain 01/14/25 lidocaine 5 % topical patch (DermacinRx Lidocan) 1 patch topical QHS PAIN 01/14/25 magnesium hydroxide 400 mg/5 mL oral suspension (Dulcolax (magnesium hydroxide)) 2,400 mg PO DAILY PRN constipation 01/14/25 mineral oil (Fleet Mineral Oil enema) 118 ml MO DAILY PRN constipation 01/14/25 polyethylene glycol 3350 17 gram/dose oral powder (ClearLax) 17 g PO DAILY PRN constipation 01/14/25 potassium chloride 20 mEq/15 mL oral liquid 6.6667 meq PO BID SUPPLEMENT 01/14/25 saliva substitute combo no.9 (Biotene Dry Mouth Oral Rinse mouthwash) 15 ml mucous membrane DAILY DRY MOUTH 01/14/25 levofloxacin 750 mg tablet 750 mg PO DAILY #5 tabs 01/17/25 Hospital Course Operations None Procedures None Summary of Care Provided Minutes Spent on Discharge: 33 Hospital Course: Per HPI: SIOBHAN HAAS, is a 64 F who presents to the hospital with the increased shortness of breath and found to be in respiratory failure necessitating BiPAP. She said that she felt fine last evening and then this morning she was getting into a chair where she felt suddenly short of breath. She was found to have a fever of 101, but denies any chills and no sick contacts though she does reside at the [facility] in [place]. Initially there is concern for possible PE so CTA of the chest was obtained which demonstrated left lower lobe pneumonia and no definite PE. Denies any chest pain. She does wear BiPAP at baseline but only at night and today she was hypoxic and at the longterm and was transported to the ER. Hospital Course: 1. Hypoxia present failure secondary left lower lobe pneumonia???64-year-old female presented from the [facility] with left lower lobe pneumonia requiring BiPAP initially on arrival. She wears BiPAP at night but not during the day. Sputum cultures did initially (more content not included)...[facility]04-19-2025 Discharge summary Author Rigo Trinidad [facility] Note Date/Time January 17, 2025 9:5 9am [facility] Medical Records Department [address] [place] [address] Transfer to [facility] MR#: [id number] Acct: [id number] Name: SIOBHAN HAAS Rep #:[id number] : 1960 64 From: Rigo jackson MD PCP: Dr. Louis Penn MD Status:ADM I N Certification of patient admission REQUIRED AT TIME OF ADMISSION. I CERTIFY THAT POST-HOSPITAL ECF SERVICES ARE REQUIRED TO BE GIVEN ON AN IN-PATIENT BASIS BECAUSE OF THE ABOVE NAMED PATIENT'S NEED FOR SNF CARE ON A CONTINUING BASIS FOR THE CONDITION(S) FOR WHICH HE/SHE WAS RECEIVING IN-PATIENT HOSPITAL SERVICES PRIOR TO HIS/HER TRANSFER TO THE ECF. 01/17/25 0959<Electronically signed by Rigo Trinidad MD> Diet Diet Order/Speech Therapy: 01/15/25 10:28 Carb [Diet: Carbohydrate Controlled] Food consistency:: Regular Liquid Consistency:: Regular/Thin Dietary Modifications:: No Added Salt Routine Orders/Code Status Routine Lab Work: CBC and BMP Code Status: Full Code DC O2, CPAP, BIPAP needs Home O2 Discharge instructions: No Therapies Physical Therapy: Eval and Treat Occupational Therapy: Eval and Treat Problem/Diagnosis (1) Acute hypoxemic respiratory failure: Status: Acute Code(s): J96.01 - Acute respiratory failure with hypoxia (2) Pneumonia: Status: Acute Code(s): J18.9 - Pneumonia, unspecified organism Plan 1. Acute hypoxic respiratory failure secondary to left lower lobe pneumonia ? On arrival she was tachypneic with an increased work of breathing, at the timeof my exam she has been on BiPAP so the symptoms have resolved ? Can resume wearing her BiPAP at night we will continue with oxygen during the day. Wean as able ? Continue with Levaquin ? Sputum cultures pending, 1+ gram-positive cocci ? She is not septic 2. Essential HTN/HLD/morbid obesity ? Recommend weight loss and dietary modifications, BMI is 57.7 ? Continue with her home blood pressure medications ? Continue with her cholesterol medications ? Will monitor make adjustments as necessary 3. DM2 ? Hold metformin ? Sliding scale insulin ? Accu-Cheks ACHS ? Will monitor make adjustments as necessary 4. COPD/asthma with FAY ? Continue with BiPAP at night ? No evidence of wheezing on exam, will hold off steroids given her diabetes andher infection ? Continue with her inhalers 5. Anxiety/depression ? Stable ? Continue with her home medications DVT: Lovenox Allergies/Procedures Done in Hospital Allergies losartan (From Cozaar) Allergy (Mild, Verified 12/29/24 12:52) Rash pt states she had a reaction previously to this med and she forgot to have it added to her her allergy list. cefepime Allergy (Unknown, Verified 12/29/24 12:52) NEEDS FOLLOW-UP clonazepam Allergy (Unknown, Verified 12/29/24 12:52) NEEDS FOLLOW-UP hydromorphone Allergy (Unknown, Verified 12/29/24 12:52) NEEDS FOLLOW-UP ketamine Allergy (Unknown, Verified 12/29/24 12:52) NEEDS FOLLOW-UP lisinopril Allergy (Unknown, Verified 12/29/24 12:52) NEEDS FOLLOW-UP vancomycin Allergy (Verified 12/29/24 12:52) Rash amlodipine Adverse Reaction (Verified 12/29/24 12:52) Swelling Procedures: None Type of Care/Length of Stay Estimated LOS: More Than 30 Days Type of Care Needed: Intermediate Rehab Potential: Good Prognosis: Good Additional Orders/Day of Discharge Day of Discharge: 01/17/25 Dietary and Speech Recommendations Dietitian Recommendations/Changes: Adjust to CCD, no added salt diet. Will monitor weight trends. Discharge Plan Admission Admit Date/Time: 01/14/25 11:59 Attending Provider: Rigo Trinidad Primary Care Provider: Louis Penn Discharge Orders/Prescriptions Prescriptions: New levofloxacin 750 mg tablet 750 mg PO DAILY Qty: 5 0RF Continued albuterol sulfate 90 mcg/actuation HFA aerosol inhaler 2 puff inhalation Q6H PRN (Reason: shortness of breath or wheezing) Qty: 8.5 6RF Rx Instructions: administer with spacer metformin 850 mg tablet 850 mg PO BID sertraline 50 mg tablet 50 mg PO DAILY valsartan 320 mg tablet 320 mg PO DAILY omeprazole 40 mg capsule,delayed release(DR/EC) 40 mg PO DAILY pramipexole 1.5 mg tablet 3 mg PO QHS amitriptyline 100 mg tablet 100 mg PO QHS cholecalciferol (vitamin D3) 1,250 mcg (50,000 unit) capsule 1,250 mcg PO MO metoprolol succinate 50 mg tablet extended release 24 hr 50 mg PO DAILY montelukast 10 mg Tablet 10 mg PO DAILY albuterol sulfate 2.5 mg /3 mL (0.083 %) solution for nebulization 1.25 mg inhalation Q4H PRN (Reason: sob/wheezing) atorvastatin 10 mg tablet 10 mg PO QHS docusate sodium [Colace] 100 mg capsule 100 mg PO DAILY fluticasone propionate [Flonase Allergy Relief] 50 mcg/actuation spray,suspension 1 spray intranasal DAILY Rx Instructions: administer into each nostril fluticasone propion-salmeterol [Advair Diskus] 250-50 mcg/dose blister with device 1 inh inhalation BID gabapentin 300 mg capsule 300 mg PO DAILY loratadine [Allergy Relief (loratadine)] 10 mg tablet 10 mg PO DAILY melatonin 5 mg tablet 5 mg PO QHS multivitamin [Daily Multi-Vitamin] Tablet 1 tab PO DAILY acetaminophen [Acetaminophen Extra Strength] 500 mg tablet 1,000 mg PO Q8H PRN (Reason: pain) hydroxyzine pamoate [Vistaril] 25 mg capsule 25 mg PO Q6H PRN (Reason: anxiety) buprenorphine HCl [Belbuca] 300 mcg film 300 mcg BUCCAL BID diphenhydramine HCl [Benadryl Allergy] 25 mg tablet 25 mg PO Q4H PRN (Reason: allergic reaction) Biotene Dry Mouth Oral Rinse Mouthwash 15 ml mucous membrane DAILY bisacodyl 10 mg suppository 10 mg MO QHS PRN (Reason: constipation) Rx Instructions: USE NEEDED IF NO BM 8 HOURS AFTER MOM ADMINISTRATION mineral oil [Fleet Mineral Oil] Enema 118 ml MO DAILY PRN (Reason: constipation) Rx Instructions: ADMINISTER ONCE DAILY IF NO BM 8 HOURS AFTER RECEIVING SUPPOSITORY. IF NO BM WITHIN 1 HOUR AFTER RECEIVING ENEMA NOTIFY MD. gabapentin 300 mg capsule 600 mg PO QHS Patient Comments: TAKE 1 CAPSULE IN AM, 2 CAPSULES AT BEDTIME. ibuprofen [Advil] 200 mg tablet 400 mg PO Q12H PRN (Reason: pain) lidocaine [DermacinRx Lidocan] 5 % adhesive patch,medicated 1 patch topical QHS Rx Instructions: APPLY TO THE LEFT SHOULDER AT BEDTIME. REMOVE AFTER 12 HOURS. magnesium hydroxide [Dulcolax (magnesium hydroxide)] 400 mg/5 mL suspension 2,400 mg PO DAILY PRN (Reason: constipation) Rx Instructions: GIVE ONCE DAILY PER BOWEL PROTOCOL. ADMINISTER IF NO BM IN 3 CONSECUTIVE DAYS polyethylene glycol 3350 [ClearLax] 17 gram/dose powder 17 g PO DAILY PRN (Reason: constipation) guaifenesin [Mucinex] 600 mg tablet extended release 12hr 600 mg PO BID PRN (Reason: congestion) potassium chloride 20 mEq/15 mL liquid 6.6667 meq PO BID guaifenesin [Adult Tussin Chest Congestion] 100 mg/5 mL liquid 200 mg PO Q6H PRN (Reason: cough) Referrals / Follow Up: Louis Penn MD [Primary Care Provider] - Disposition Disposition (needs filled in before D/C Order can be placed): Intermediate Facility 01/17/25 0959 <Electronically signed by Rigo Trinidad MD> Cosigner Signature (if applicable): CC: Dr. Louis Penn MD ~ [facility] Work Phone: [phone]) 585-450304-19-2025 Discharge summary [facility] Medical Records Department [address] [place] [address] Transfer to [facility] MR#: [id number] Acct: [id number] Name: SIOBHAN HAAS Rep #:[id number] : 1960 64 From: Rigo jackson MD PCP: Dr. Louis Penn MD Status:ADM I N Certification of patient admission REQUIRED AT TIME OF ADMISSION. I CERTIFY THAT POST-HOSPITAL ECF SERVICES ARE REQUIRED TO BE GIVEN ON AN IN-PATIENT BASIS BECAUSE OF THE ABOVE NAMED PATIENT'S NEED FOR SNF CARE ON A CONTINUING BASIS FOR THE CONDITION(S) FOR WHICH HE/SHE WAS RECEIVING IN-PATIENT HOSPITAL SERVICES PRIOR TO HIS/HER TRANSFER TO THE [facility]. 01/17/25 0959 Diet Diet Order/Speech Therapy: 01/15/25 10:28 Carb [Diet: Carbohydrate Controlled] Food consistency:: Regular Liquid Consistency:: Regular/Thin Dietary Modifications:: No Added Salt Routine Orders/Code Status Routine Lab Work: CBC and BMP Code Status: Full Code DC O2, CPAP, BIPAP needs Home O2 Discharge instructions: No Therapies Physical Therapy: Eval and Treat Occupational Therapy: Eval and Treat Problem/Diagnosis (1) Acute hypoxemic respiratory failure: Status: Acute Code(s): J96.01 - Acute respiratory failure with hypoxia (2) Pneumonia: Status: Acute Code(s): J18.9 - Pneumonia, unspecified organism Plan 1. Acute hypoxic respiratory failure secondary to left lower lobe pneumonia ? On arrival she was tachypneic with an increased work of breathing, at the timeof my exam she has been on BiPAP so the symptoms have resolved ? Can resume wearing her BiPAP at night we will continue with oxygen during the day. Wean as able ? Continue with Levaquin ? Sputum cultures pending, 1+ gram-positive cocci ? She is not septic 2. Essential HTN/HLD/morbid obesity ? Recommend weight loss and dietary modifications, BMI is 57.7 ? Continue with her home blood pressure medications ? Continue with her cholesterol medications ? Will monitor make adjustments as necessary 3. DM2 ? Hold metformin ? Sliding scale insulin ? Accu-Cheks ACHS ? Will monitor make adjustments as necessary 4. COPD/asthma with FAY ? Continue with BiPAP at night ? No evidence of wheezing on exam, will hold off steroids given her diabetes andher infection ? Continue with her inhalers 5. Anxiety/depression ? Stable ? Continue with her home medications DVT: Lovenox Allergies/Procedures Done in Hospital Allergies losartan (From Cozaar) Allergy (Mild, Verified 12/29/24 12:52) Rash pt states she had a reaction previously to this med and she forgot to have it added to her her allergy list. cefepime Allergy (Unknown, Verified 12/29/24 12:52) NEEDS FOLLOW-UP clonazepam Allergy (Unknown, Verified 12/29/24 12:52) NEEDS FOLLOW-UP hydromorphone Allergy (Unknown, Verified 12/29/24 12:52) NEEDS FOLLOW-UP ketamine Allergy (Unknown, Verified 12/29/24 12:52) NEEDS FOLLOW-UP lisinopril Allergy (Unknown, Verified 12/29/24 12:52) NEEDS FOLLOW-UP vancomycin Allergy (Verified 12/29/24 12:52) Rash amlodipine Adverse Reaction (Verified 12/29/24 12:52) Swelling Procedures: None Type of Care/Length of Stay Estimated LOS: More Than 30 Days Type of Care Needed: Intermediate Rehab Potential: Good Prognosis: Good Additional Orders/Day of Discharge Day of Discharge: 01/17/25 Dietary and Speech Recommendations Dietitian Recommendations/Changes: Adjust to CCD, no added salt diet. Will monitor weight trends. Discharge Plan Admission Admit Date/Time: 01/14/25 11:59 Attending Provider: Rigo Trinidad Primary Care Provider: Louis Penn Discharge Orders/Prescriptions Prescriptions: New levofloxacin 750 mg tablet 750 mg PO DAILY Qty: 5 0RF Continued albuterol sulfate 90 mcg/actuation HFA aerosol inhaler 2 puff inhalation Q6H PRN (Reason: shortness of breath or wheezing) Qty: 8.5 6RF Rx Instructions: administer with spacer metformin 850 mg tablet 850 mg PO BID sertraline 50 mg tablet 50 mg PO DAILY valsartan 320 mg tablet 320 mg PO DAILY omeprazole 40 mg capsule,delayed release(DR/EC) 40 mg PO DAILY pramipexole 1.5 mg tablet 3 mg PO QHS amitriptyline 100 mg tablet 100 mg PO QHS cholecalciferol (vitamin D3) 1,250 mcg (50,000 unit) capsule 1,250 mcg PO MO metoprolol succinate 50 mg tablet extended release 24 hr 50 mg PO DAILY montelukast 10 mg Tablet 10 mg PO DAILY albuterol sulfate 2.5 mg /3 mL (0.083 %) solution for nebulization 1.25 mg inhalation Q4H PRN (Reason: sob/wheezing) atorvastatin 10 mg tablet 10 mg PO QHS docusate sodium [Colace] 100 mg capsule 100 mg PO DAILY fluticasone propionate [Flonase Allergy Relief] 50 mcg/actuation spray,suspension 1 spray intranasal DAILY Rx Instructions: administer into each nostril fluticasone propion-salmeterol [Advair Diskus] 250-50 mcg/dose blister with device 1 inh inhalation BID gabapentin 300 mg capsule 300 mg PO DAILY loratadine [Allergy Relief (loratadine)] 10 mg tablet 10 mg PO DAILY melatonin 5 mg tablet 5 mg PO QHS multivitamin [Daily Multi-Vitamin] Tablet 1 tab PO DAILY acetaminophen [Acetaminophen Extra Strength] 500 mg tablet 1,000 mg PO Q8H PRN (Reason: pain) hydroxyzine pamoate [Vistaril] 25 mg capsule 25 mg PO Q6H PRN (Reason: anxiety) buprenorphine HCl [Belbuca] 300 mcg film 300 mcg BUCCAL BID diphenhydramine HCl [Benadryl Allergy] 25 mg tablet 25 mg PO Q4H PRN (Reason: allergic reaction) Biotene Dry Mouth Oral Rinse Mouthwash 15 ml mucous membrane DAILY bisacodyl 10 mg suppository 10 mg MO QHS PRN (Reason: constipation) Rx Instructions: USE NEEDED IF NO BM 8 HOURS AFTER MOM ADMINISTRATION mineral oil [Fleet Mineral Oil] Enema 118 ml MO DAILY PRN (Reason: constipation) Rx Instructions: ADMINISTER ONCE DAILY IF NO BM 8 HOURS AFTER RECEIVING SUPPOSITORY. IF NO BM WITHIN 1 HOUR AFTER RECEIVING ENEMA NOTIFY MD. gabapentin 300 mg capsule 600 mg PO QHS Patient Comments: TAKE 1 CAPSULE IN AM, 2 CAPSULES AT BEDTIME. ibuprofen [Advil] 200 mg tablet 400 mg PO Q12H PRN (Reason: pain) lidocaine [DermacinRx Lidocan] 5 % adhesive patch,medicated 1 patch topical QHS Rx Instructions: APPLY TO THE LEFT SHOULDER AT BEDTIME. REMOVE AFTER 12 HOURS. magnesium hydroxide [Dulcolax (magnesium hydroxide)] 400 mg/5 mL suspension 2,400 mg PO DAILY PRN (Reason: constipation) Rx Instructions: GIVE ONCE DAILY PER BOWEL PROTOCOL. ADMINISTER IF NO BM IN 3 CONSECUTIVE DAYS polyethylene glycol 3350 [ClearLax] 17 gram/dose powder 17 g PO DAILY PRN (Reason: constipation) guaifenesin [Mucinex] 600 mg tablet extended release 12hr 600 mg PO BID PRN (Reason: congestion) potassium chloride 20 mEq/15 mL liquid 6.6667 meq PO BID guaifenesin [Adult Tussin Chest Congestion] 100 mg/5 mL liquid 200 mg PO Q6H PRN (Reason: cough) Referrals / Follow Up: Louis Penn MD [Primary Care Provider] - Disposition Disposition (needs filled in before D/C Order can be placed): Intermediate Facility 01/17/25 0957 Cosigner Signature (if applicable): CC: Dr. Louis Penn MD ~ [facility]04-18-2025 Progress note Author Rigo Trinidad [facility] Note Date/Time January 16, 2025 12: 20pm [facility] Medical Records Department [address] [place] [id number] Progress Note - Hospitalist 01/16/25 1201 MR#: [id number] Acct: [id number] Name: SIOBHAN HAAS Rep #:[id number] : 1960 64 From: Rigo jackson MD PCP: Dr. Louis Penn MD Status:ADM I N Location: [place] [address] Subjective Subjective Doing well, feels a bit better. Down to about 6 L nasal cannula Objective Data Objective Data Vital Signs: Vital Signs Temp Pulse Resp BP Pulse Ox O2 Del Method O2 Flow Rate 97.2 F L 73 18 101/58 L 93 High Flow 6 01/16/25 09:40 01/16/25 09:48 01/16/25 09:40 01/16/25 09:40 01/16/25 09:40 01/16/25 10:00 01/16/25 10:00 FiO2 40 01/16/25 04:33 Oxygen Flow Rate (L/min) 6 Oxygen Delivery Method High Flow Weight: 348 lb 8.813 oz Body Mass Index (BMI) 81.0 Intake & Output: Intake and Output for Last 24 Hours 01/15/25 01/16/25 01/17/25 03:59 03:59 03:59 Intake Total 3069.17 / 3069.17 2725 / 2725 275 / 275 Output Total 350 / 350 1340 / 1340 Balance 2719.17 / 2719.17 1385 / 1385 275 / 275 Lab / Micro Data 01/16/25 05:13 01/16/25 05:13 Labs: Laboratory Results - last 24 hr 01/15/25 11:43: POC Glucose 101 01/15/25 15:47: POC Glucose 114 H 01/15/25 21:51: POC Glucose 133 H 01/16/25 05:13: WBC 6.6, RBC 3.62 L, Hgb 10.3 L, Hct 31.8 L, MCV 87.8, MCH 28.5,MCHC 32.4, RDW Std Deviation 49.3 H, RDW Coeff of Naga 15.4 H, Plt Count 229, MPV10.8, Immature Gran % (Auto) 0.900, Neut % (Auto) 64.6, Lymph % (Auto) 19.5, Rabun % (Auto) 11.2 H, Eos % (Auto) 3.2, Baso % (Auto) 0.6, Absolute Neuts (auto) 4.3, Absolute Lymphs (auto) 1.29, Nucleated RBC % 0, Sodium 138, Potassium 3.8, Chloride 105, Carbon Dioxide 24.7, Anion Gap 9, BUN 8, Creatinine 0.56 L, Estim Creat Clear Calc 109.37, Est GFR (MDRD) Non-Af 101, BUN/Creatinine Ratio 14.2, Glucose 104 H, Calcium 8.5 Micro: Microbiology 01/14/25 10:45 Urine, Catheterized Urine Culture - Final Culture exhibits no growth. 01/14/25 10:11 Blood Culture (Wb) - Right Forearm Blood Culture - Preliminary No growth in 48 hours. 01/14/25 10:11 Blood Culture (Wb) - Right Forearm Blood Culture - Preliminary No growth in 48 hours. 01/14/25 22:27 Sputum, Expectorated/Coughed Gram Stain - Final 01/14/25 10:45 Urine, Random Legionella Antigen - Final 01/14/25 10:45 Urine, Random Streptococcus pneumoniae Antigen (M - Final 01/14/25 08:31 Mucosa - Nose SARS-CoV-2, Influenza & RSV (PCR) - Final Physical Exam Narrative General: Alert, Oriented x3, Cooperative, No apparent distress HEENT: Atraumatic, PERRLA, EOMI, Normocephalic Oral: Moist Mucosa Neck: Supple, No JVD Lungs: Diminished, Normal air movement, No rhonchi, No wheeze, No rales Cardiovascular: Regular rate, Regular Rhythm, Normal S1, Normal S2, No murmurs Abdomen: Soft, Non Tender, Non-Distended, No Hepato-splenomegaly Extremities: No edema, Capillary Refill Less than 3 Seconds Skin: No rashes, No breakdown Musculoskeletal: Bilateral BKA Neurological: No focal neurological deficits, Motor Exam 5/5 strength throughout, Sensory exam intact to light touch and pain Psych/Mental Status: Normal Affect, Appropriate Assessment & Plan Assessment/Plan (1) Acute hypoxemic respiratory failure: (2) Pneumonia: PLAN: Plan 1. Acute hypoxic respiratory failure secondary to left lower lobe pneumonia ? On arrival she was tachypneic with an increased work of breathing, at the timeof my exam she has been on BiPAP so the symptoms have resolved ? Can resume wearing her BiPAP at night we will continue with oxygen during the day. Wean as able ? Continue with Levaquin ? Sputum cultures pending, 1+ gram-positive cocci ? She is not septic 2. Essential HTN/HLD/morbid obesity ? Recommend weight loss and dietary modifications, BMI is 57.7 ? Continue with her home blood pressure medications ? Continue with her cholesterol medications ? Will monitor make adjustments as necessary 3. DM2 ? Hold metformin ? Sliding scale insulin ? Accu-Cheks ACHS ? Will monitor make adjustments as necessary 4. COPD/asthma with FAY ? Continue with BiPAP at night ? No evidence of wheezing on exam, will hold off steroids given her diabetes andher infection ? Continue with her inhalers 5. Anxiety/depression ? Stable ? Continue with her home medications DVT: Lovenox Charges/Coding Visit Charges Inpatient E&M: 62297 Subs Hosp L2 01/16/25 1220 <Electronically signed by Rigo Trinidad MD> Cosigner Signature (if applicable): CC: ~ Signed [facility] Work Phone: 1(537) 333-621904-18-2025 Progress note [facility] Medical Records Department [address] [place] [address] Progress Note - Hospitalist 01/16/25 1201 MR#: [id number] Acct: [id number] Name: SIOBHAN HAAS Rep #:[id number] : 1960 64 From: Rigo jackson MD PCP: Dr. Louis Penn MD Status:ADM I N Location: [place] [address] Subjective Subjective Doing well, feels a bit better. Down to about 6 L nasal cannula Objective Data Objective Data Vital Signs: Vital Signs Temp Pulse Resp BP Pulse Ox O2 Del Method O2 Flow Rate 97.2 F L 73 18 101/58 L 93 High Flow 6 01/16/25 09:40 01/16/25 09:48 01/16/25 09:40 01/16/25 09:40 01/16/25 09:40 01/16/25 10:00 01/16/25 10:00 FiO2 40 01/16/25 04:33 Oxygen Flow Rate (L/min) 6 Oxygen Delivery Method High Flow Weight: 348 lb 8.813 oz Body Mass Index (BMI) 81.0 Intake & Output: Intake and Output for Last 24 Hours 01/15/25 01/16/25 01/17/25 03:59 03:59 03:59 Intake Total 3069.17 / 3069.17 2725 / 2725 275 / 275 Output Total 350 / 350 1340 / 1340 Balance 2719.17 / 2719.17 1385 / 1385 275 / 275 Lab / Micro Data 01/16/25 05:13 01/16/25 05:13 Labs: Laboratory Results - last 24 hr 01/15/25 11:43: POC Glucose 101 01/15/25 15:47: POC Glucose 114 H 01/15/25 21:51: POC Glucose 133 H 01/16/25 05:13: WBC 6.6, RBC 3.62 L, Hgb 10.3 L, Hct 31.8 L, MCV 87.8, MCH 28.5,MCHC 32.4, RDW Std Deviation 49.3 H, RDW Coeff of Naga 15.4 H, Plt Count 229, MPV10.8, Immature Gran % (Auto) 0.900, Neut % (Auto) 64.6, Lymph % (Auto) 19.5, Rabun % (Auto) 11.2 H, Eos % (Auto) 3.2, Baso % (Auto) 0.6, Absolute Neuts (auto) 4.3, Absolute Lymphs (auto) 1.29, Nucleated RBC % 0, Sodium 138, Potassium 3.8, Chloride 105, Carbon Dioxide 24.7, Anion Gap 9, BUN 8, Creatinine 0.56 L, Estim Creat Clear Calc 109.37, Est GFR (MDRD) Non-Af 101, BUN/Creatinine Ratio 14.2, Glucose 104 H, Calcium 8.5 Micro: Microbiology 01/14/25 10:45 Urine, Catheterized Urine Culture - Final Culture exhibits no growth. 01/14/25 10:11 Blood Culture (Wb) - Right Forearm Blood Culture - Preliminary No growth in 48 hours. 01/14/25 10:11 Blood Culture (Wb) - Right Forearm Blood Culture - Preliminary No growth in 48 hours. 01/14/25 22:27 Sputum, Expectorated/Coughed Gram Stain - Final 01/14/25 10:45 Urine, Random Legionella Antigen - Final 01/14/25 10:45 Urine, Random Streptococcus pneumoniae Antigen (M - Final 01/14/25 08:31 Mucosa - Nose SARS-CoV-2, Influenza & RSV (PCR) - Final Physical Exam Narrative General: Alert, Oriented x3, Cooperative, No apparent distress HEENT: Atraumatic, PERRLA, EOMI, Normocephalic Oral: Moist Mucosa Neck: Supple, No JVD Lungs: Diminished, Normal air movement, No rhonchi, No wheeze, No rales Cardiovascular: Regular rate, Regular Rhythm, Normal S1, Normal S2, No murmurs Abdomen: Soft, Non Tender, Non-Distended, No Hepato-splenomegaly Extremities: No edema, Capillary Refill Less than 3 Seconds Skin: No rashes, No breakdown Musculoskeletal: Bilateral BKA Neurological: No focal neurological deficits, Motor Exam 5/5 strength throughout, Sensory exam intact to light touch and pain Psych/Mental Status: Normal Affect, Appropriate Assessment & Plan Assessment/Plan (1) Acute hypoxemic respiratory failure: (2) Pneumonia: PLAN: Plan 1. Acute hypoxic respiratory failure secondary to left lower lobe pneumonia ? On arrival she was tachypneic with an increased work of breathing, at the timeof my exam she has been on BiPAP so the symptoms have resolved ? Can resume wearing her BiPAP at night we will continue with oxygen during the day. Wean as able ? Continue with Levaquin ? Sputum cultures pending, 1+ gram-positive cocci ? She is not septic 2. Essential HTN/HLD/morbid obesity ? Recommend weight loss and dietary modifications, BMI is 57.7 ? Continue with her home blood pressure medications ? Continue with her cholesterol medications ? Will monitor make adjustments as necessary 3. DM2 ? Hold metformin ? Sliding scale insulin ? Accu-Cheks ACHS ? Will monitor make adjustments as necessary 4. COPD/asthma with FAY ? Continue with BiPAP at night ? No evidence of wheezing on exam, will hold off steroids given her diabetes andher infection ? Continue with her inhalers 5. Anxiety/depression ? Stable ? Continue with her home medications DVT: Lovenox Charges/Coding Visit Charges Inpatient E&M: 73445 Subs Hosp L2 01/16/25 1220 Cosigner Signature (if applicable): CC: ~ Signed [facility]04-17-2025 Progress note Author Rigo Trinidad [facility] Note Date/Time January 15, 2025 11: 04am [facility] Medical Records Department [address] [place] [address] Progress Note - Hospitalist 01/15/25 1100 MR#: [id number] Acct: [id number] Name: SIOBHAN HAAS Rep #:[id number] : 1960 64 From: Rigo jackson MD PCP: Dr. Louis Penn MD Status:ADM I N Location: [place] [address] Subjective Subjective No issues overnight, currently off of BiPAP on 8 L high flow. Continue with antibiotics and breathing treatments Objective Data Objective Data Vital Signs: Vital Signs Temp Pulse Resp BP Pulse Ox O2 Del Method O2 Flow Rate 98.1 F 78 18 103/61 96 High Flow 8 01/15/25 09:24 01/15/25 09:32 01/15/25 09:24 01/15/25 09:24 01/15/25 09:24 01/15/25 09:24 01/15/25 09:24 FiO2 40 01/15/25 02:35 Oxygen Flow Rate (L/min) 8 Oxygen Delivery Method High Flow Weight: 348 lb 8.813 oz Body Mass Index (BMI) 81.0 Intake & Output: Intake and Output for Last 24 Hours 01/14/25 01/15/25 01/16/25 03:59 03:59 03:59 Intake Total 3069.17 / 3069.17 Output Total 350 / 350 Balance 2719.17 / 2719.17 Lab / Micro Data 01/15/25 06:16 01/15/25 06:16 Labs: Laboratory Results - last 24 hr 01/14/25 10:45: Urine Color Yellow, Urine Clarity Clear, Urine pH 5.0, Ur Specific [place] 1.020, Urine Protein 15 H, Urine Glucose (UA) Normal, Urine Ketones Negative, Urine Occult Blood Negative, Urine Nitrite Negative, Urine Bilirubin Negative, Urine Urobilinogen Normal, Ur Leukocyte Esterase Negative, Urine RBC 0-5 SEEN, Urine WBC 0 SEEN, Ur Squamous Epith Cells 0-5 SEEN, Urine Bacteria 0 SEEN, Hyaline Casts 5- 10 SEEN, Fine Granular Casts 0-5 SEEN, Urine Mucus 1+ 01/14/25 12:43: Troponin T Hi Sens 4Hr Cancelled 01/14/25 13:55: Troponin T High Sens 8 01/14/25 14:43: POC Glucose 94 01/14/25 15:50: Troponin T Hi Sens 2 Hr 7 01/14/25 16:29: POC Glucose 98 01/14/25 17:59: Troponin T Hi Sens 4Hr < 6 01/14/25 21:54: POC Glucose 123 H 01/15/25 06:16: WBC 9.9, RBC 3.79 L, Hgb 10.8 L, Hct 33.1 L, MCV 87.3, MCH 28.5,MCHC 32.6, RDW Std Deviation 49.7 H, RDW Coeff of Naga 15.4 H, Plt Count 219, MPV10.4, Immature Gran % (Auto) 0.400, Neut % (Auto) 76.8 H, Lymph % (Auto) 12.8 L,Rabun % (Auto) 8.3, Eos % (Auto) 1.4, Baso % (Auto) 0.3, Absolute Neuts (auto) 7.6, Absolute Lymphs (auto) 1.26, Nucleated RBC % 0, Sodium 138, Potassium 3.9, Chloride 104, Carbon Dioxide 24.6, Anion Gap 9, BUN 9, Creatinine 0.52 L, Estim Creat Clear Calc 100.21, Est GFR (MDRD) Non-Af 103, BUN/Creatinine Ratio 17.0, Glucose 96, Calcium 8.5 01/15/25 06:32: POC Glucose 93 Micro: Microbiology 01/14/25 10:45 Urine, Random Legionella Antigen - Final 01/14/25 10:45 Urine, Random Streptococcus pneumoniae Antigen (M - Final 01/14/25 08:31 Mucosa - Nose SARS-CoV-2, Influenza & RSV (PCR) - Final Radiography Diagnostic Testing: Radiology Impression Chest CTA 01/14/25 11:05 IMPRESSION: 1. Limited sensitivity for peripheral pulmonary embolism on a technical basis. No central or definite pulmonary embolus identified. 2. Findings are compatible with multifocal LEFT lower lobe predominant pneumonia. Given nodular components, recommend CT chest in 3 months to document resolution. 3. Mild splenomegaly. 4. Additional description as above. Reading Location: [facility] Physical Exam Narrative General: Alert, Oriented x3, Cooperative, No apparent distress HEENT: Atraumatic, PERRLA, EOMI, Normocephalic Oral: Moist Mucosa Neck: Supple, No JVD Lungs: Diminished, Normal air movement, No rhonchi, No wheeze, No rales Cardiovascular: Regular rate, Regular Rhythm, Normal S1, Normal S2, No murmurs Abdomen: Soft, Non Tender, Non-Distended, No Hepato-splenomegaly Extremities: No edema, Capillary Refill Less than 3 Seconds Skin: No rashes, No breakdown Musculoskeletal: Bilateral BKA Neurological: No focal neurological deficits, Motor Exam 5/5 strength throughout, Sensory exam intact to light touch and pain Psych/Mental Status: Normal Affect, Appropriate Assessment & Plan Assessment/Plan (1) Acute hypoxemic respiratory failure: (2) Pneumonia: PLAN: Plan 1. Acute hypoxic respiratory failure secondary to left lower lobe pneumonia ? On arrival she was tachypneic with an increased work of breathing, at the timeof my exam she has been on BiPAP so the symptoms have resolved ? Can resume wearing her BiPAP at night we will continue with oxygen during the day. Wean as able ? Continue with Levaquin ? Sputum cultures pending ? Will stop IV fluids now that she is on nasal cannula ? She is not septic 2. Essential HTN/HLD/morbid obesity ? Recommend weight loss and dietary modifications, BMI is 57.7 ? Continue with her home blood pressure medications ? Continue with her cholesterol medications ? Will monitor make adjustments as necessary 3. DM2 ? Hold metformin ? Sliding scale insulin ? Accu-Cheks ACHS ? Will monitor make adjustments as necessary 4. COPD/asthma with FAY ? Continue with BiPAP at night ? No evidence of wheezing on exam, will hold off steroids given her diabetes andher infection ? Continue with her inhalers 5. Anxiety/depression ? Stable ? Continue with her home medications DVT: Lovenox Charges/Coding Visit Charges Inpatient E&M: 17960 Subs Hosp L2 01/15/25 1104 <Electronically signed by Rigo Trinidad MD> Cosigner Signature (if applicable): CC: ~ Signed [facility] Work Phone: [phone] Progress note [facility] Medical Records Department [address] [place] [address] Progress Note - Hospitalist 01/15/25 1100 MR#: [id number] Acct: [id number] Name: SIOBHAN HAAS Rep #:[id number] : 1960 64 From: Rigo jackson MD PCP: Dr. Louis Penn MD Status:ADM I N Location: [place] [address] Subjective Subjective No issues overnight, currently off of BiPAP on 8 L high flow. Continue with antibiotics and breathing treatments Objective Data Objective Data Vital Signs: Vital Signs Temp Pulse Resp BP Pulse Ox O2 Del Method O2 Flow Rate 98.1 F 78 18 103/61 96 High Flow 8 01/15/25 09:24 01/15/25 09:32 01/15/25 09:24 01/15/25 09:24 01/15/25 09:24 01/15/25 09:24 01/15/25 09:24 FiO2 40 01/15/25 02:35 Oxygen Flow Rate (L/min) 8 Oxygen Delivery Method High Flow Weight: 348 lb 8.813 oz Body Mass Index (BMI) 81.0 Intake & Output: Intake and Output for Last 24 Hours 01/14/25 01/15/25 01/16/25 03:59 03:59 03:59 Intake Total 3069.17 / 3069.17 Output Total 350 / 350 Balance 2719.17 / 2719.17 Lab / Micro Data 01/15/25 06:16 01/15/25 06:16 Labs: Laboratory Results - last 24 hr 01/14/25 10:45: Urine Color Yellow, Urine Clarity Clear, Urine pH 5.0, Ur Specific [place] 1.020, Urine Protein 15 H, Urine Glucose (UA) Normal, Urine Ketones Negative, Urine Occult Blood Negative, Urine Nitrite Negative, Urine Bilirubin Negative, Urine Urobilinogen Normal, Ur Leukocyte Esterase Negative, Urine RBC 0-5 SEEN, Urine WBC 0 SEEN, Ur Squamous Epith Cells 0-5 SEEN, Urine Bacteria 0 SEEN, Hyaline Casts 5-10 SEEN, Fine Granular Casts 0-5 SEEN, Urine Mucus 1+ 01/14/25 12:43: Troponin T Hi Sens 4Hr Cancelled 01/14/25 13:55: Troponin T High Sens 8 01/14/25 14:43: POC Glucose 94 01/14/25 15:50: Troponin T Hi Sens 2 Hr 7 01/14/25 16:29: POC Glucose 98 01/14/25 17:59: Troponin T Hi Sens 4Hr < 6 01/14/25 21:54: POC Glucose 123 H 01/15/25 06:16: WBC 9.9, RBC 3.79 L, Hgb 10.8 L, Hct 33.1 L, MCV 87.3, MCH 28.5,MCHC 32.6, RDW Std Deviation 49.7 H, RDW Coeff of Naga 15.4 H, Plt Count 219, MPV10.4, Immature Gran % (Auto) 0.400, Neut % (Auto) 76.8 H, Lymph % (Auto) 12.8 L,Rabun % (Auto) 8.3, Eos % (Auto) 1.4, Baso % (Auto) 0.3, Absolute Neuts (auto) 7.6, Absolute Lymphs (auto) 1.26, Nucleated RBC % 0, Sodium 138, Potassium 3.9, Chloride 104, Carbon Dioxide 24.6, Anion Gap 9, BUN 9, Creatinine 0.52 L, Estim Creat Clear Calc 100.21, Est GFR (MDRD) Non-Af 103, BUN/Creatinine Ratio 17.0, Glucose 96, Calcium 8.5 01/15/25 06:32: POC Glucose 93 Micro: Microbiology 01/14/25 10:45 Urine, Random Legionella Antigen - Final 01/14/25 10:45 Urine, Random Streptococcus pneumoniae Antigen (M - Final 01/14/25 08:31 Mucosa - Nose SARS-CoV-2, Influenza & RSV (PCR) - Final Radiography Diagnostic Testing: Radiology Impression Chest CTA 01/14/25 11:05 IMPRESSION: 1. Limited sensitivity for peripheral pulmonary embolism on a technical basis. No central or definite pulmonary embolus identified. 2. Findings are compatible with multifocal LEFT lower lobe predominant pneumonia. Given nodular components, recommend CT chest in 3 months to document resolution. 3. Mild splenomegaly. 4. Additional description as above. Reading Location: [facility] Physical Exam Narrative General: Alert, Oriented x3, Cooperative, No apparent distress HEENT: Atraumatic, PERRLA, EOMI, Normocephalic Oral: Moist Mucosa Neck: Supple, No JVD Lungs: Diminished, Normal air movement, No rhonchi, No wheeze, No rales Cardiovascular: Regular rate, Regular Rhythm, Normal S1, Normal S2, No murmurs Abdomen: Soft, Non Tender, Non-Distended, No Hepato-splenomegaly Extremities: No edema, Capillary Refill Less than 3 Seconds Skin: No rashes, No breakdown Musculoskeletal: Bilateral BKA Neurological: No focal neurological deficits, Motor Exam 5/5 strength throughout, Sensory exam intact to light touch and pain Psych/Mental Status: Normal Affect, Appropriate Assessment & Plan Assessment/Plan (1) Acute hypoxemic respiratory failure: (2) Pneumonia: PLAN: Plan 1. Acute hypoxic respiratory failure secondary to left lower lobe pneumonia ? On arrival she was tachypneic with an increased work of breathing, at the timeof my exam she has been on BiPAP so the symptoms have resolved ? Can resume wearing her BiPAP at night we will continue with oxygen during the day. Wean as able ? Continue with Levaquin ? Sputum cultures pending ? Will stop IV fluids now that she is on nasal cannula ? She is not septic 2. Essential HTN/HLD/morbid obesity ? Recommend weight loss and dietary modifications, BMI is 57.7 ? Continue with her home blood pressure medications ? Continue with her cholesterol medications ? Will monitor make adjustments as necessary 3. DM2 ? Hold metformin ? Sliding scale insulin ? Accu-Cheks ACHS ? Will monitor make adjustments as necessary 4. COPD/asthma with FAY ? Continue with BiPAP at night ? No evidence of wheezing on exam, will hold off steroids given her diabetes andher infection ? Continue with her inhalers 5. Anxiety/depression ? Stable ? Continue with her home medications DVT: Lovenox Charges/Coding Visit Charges Inpatient E&M: 01190 Subs Hosp L2 01/15/25 1104 Cosigner Signature (if applicable): CC: ~ Signed [facility]04-16-2025 History and physical note Author Rigo Trinidad [facility] Note Date/Time January 14, 2025 3:3 6pm [facility] Medical Records Department [address] [place] [address] H&P Exam - Hospitalist 01/14/25 1216 MR#: [id number] Acct: [id number] Name: SIOBHAN HAAS #:[id number] : 1960 64 From: Rigo jackson MD PCP: Dr. Louis Penn MD Status:ADM I N Location: [place] [address]- 1 HPI - General General Date of Admission: 01/14/25 HPI Narrative SIOBHAN HAAS, is a 64 F who presents to the hospital with the increased shortness of breath and found to be in respiratory failure necessitating BiPAP. She said that she felt fine last evening and then this morning she was getting into a chair where she felt suddenly short of breath. She was found to have a fever of 101, but denies any chills and no sick contacts though she [place] [address] [place]. Initially there is concern for possible PE so CTA of the chest was obtained which demonstrated left lower lobe pneumonia and no definite PE. Denies any chest pain. She does wear BiPAP at baseline but only at night and today she was hypoxic and at the longterm and was transported to the ER. 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 Pulmonary embolism Current use of [facility] anticoagulation Chronic wound of extremity Anemia Necrotizing fasciitis Below knee amputation Depression Rheumatoid arthritis GERD (gastroesophageal reflux disease) Former smoker BiPAP (biphasic positive airway pressure) dependence Sleep apnea Hypertension Failure of outpatient treatment Anxiety and depression Bronchospasm Asthma exacerbation Family history of diabetes mellitus (DM) Restless leg syndrome Obstructive sleep apnea Morbid obesity Fibromyalgia Reflex sympathetic dystrophy Benign essential HTN Asthma Anxiety Home Medications ?Medication ?Instructions ?Recorded ?Last Taken ?Type albuterol sulfate 90 mcg/actuation 2 puff inhalation Q 6H PRN 05/11/21 08/24/22 Rx aerosol inhaler shortness of breath or wheez ing #8.5 grams valsartan 320 mg tablet 320 mg PO DAILY heart 08/31/22 History omeprazole 40 mg capsule,delayed 40 mg PO DAILY gerd 0 06/15/21 08/31/22 History release pramipexole 1.5 mg tablet 3 mg PO QHS RESTLESS LEG SYN DROME 06/15/21 08/30/22 History amitriptyline 100 mg tablet 100 mg PO QHS PHANTOM 12/0 10/2208/30/22 History PAIN/DEPRESSION cholecalciferol (vitamin D3) 1,250 1,250 mcg PO MO SUP PLEMENT 08/31/22 08/28/22 History mcg (50,000 unit) capsule metoprolol succinate 50 mg 50 mg PO DAILY blood pressu re 10/16/22 Unknown History tablet,extended release 24 hr montelukast 10 mg tablet 10 mg PO DAILY asthma Unknown History albuterol sulfate 2.5 mg/3 mL 1.25 mg inhalation Q4H P RN 07/21/23 Unknown History (0.083 %) solution for nebulization sob/wheezing atorvastatin 10 mg tablet 10 mg PO QHS cholesterol Unknown History docusate sodium 100 mg capsule 100 mg PO DAILY constip ation 07/21/23 Unknown History (Colace) fluticasone 250 mcg-salmeterol 50 1 inh inhalation BID copd 07/21/23 Unknown History mcg/dose blistr powdr for inhalation (Advair Diskus) fluticasone propionate 50 1 spray intranasal DAILY all ergies 07/21/23 Unknown History mcg/actuation nasal spray,suspension (Flonase Allergy Relief) gabapentin 300 mg capsule 300 mg PO DAILY phantom pain 07/21/23 Unknown History loratadine 10 mg tablet (Allergy 10 mg PO DAILY allerg ies 07/21/23 Unknown History Relief (loratadine)) melatonin 5 mg tablet 5 mg PO QHS sleep 07/21/23 U nknown History multivitamin (Daily Multi-Vitamin 1 tab PO DAILY suppl ement 07/21/23 Unknown History tablet) metformin 850 mg tablet 850 mg PO BID DIABETES 05/06 Unknown History sertraline 50 mg tablet 50 mg PO DAILY DEPRESSION Unknown History acetaminophen 500 mg tablet 1,000 mg PO Q8H PRN pain 0 05/08/24 Unknown History (Acetaminophen Extra Strength) hydroxyzine pamoate 25 mg capsule 25 mg PO Q6H PRN anx iety 05/08/24 Unknown History (Vistaril) bisacodyl 10 mg rectal suppository 10 mg MO QHS PRN co nstipation 01/14/25 Unknown History buprenorphine HCl 300 mcg buccal 300 mcg buccal BID Unknown History film (Belbuca) diphenhydramine HCl 25 mg tablet 25 mg PO Q4H PRN diann rgic reaction 01/14/25 Unknown History (Benadryl Allergy) gabapentin 300 mg capsule 600 mg PO QHS FOR PHANTOM PA IN 01/14/25 Unknown History guaifenesin 100 mg/5 mL oral 200 mg PO Q6H PRN cough 0 01/14/25 Unknown History liquid (Adult Tussin Chest Congestion) guaifenesin 600 mg tablet, 600 mg PO BID PRN congestio n 01/14/25 Unknown History extended release 12 hr (Mucinex) ibuprofen 200 mg tablet (Advil) 400 mg PO Q12H PRN arjun n 01/14/25 Unknown History lidocaine 5 % topical patch 1 patch topical QHS PAIN 0 01/14/25 Unknown History (DermacinRx Lidocan) magnesium hydroxide 400 mg/5 mL 2,400 mg PO DAILY PRN constipation 01/14/25 Unknown History oral suspension (Dulcolax (magnesium hydroxide)) mineral oil (Fleet Mineral Oil 118 ml MO DAILY PRN con stipation 01/14/25 Unknown History enema) polyethylene glycol 3350 17 17 g PO DAILY PRN constipa tion 01/14/25 Unknown History gram/dose oral powder (ClearLax) potassium chloride 20 mEq/15 mL 6.6667 meq PO BID SUPP LEMENT 01/14/25 Unknown History oral liquid saliva substitute combo no.9 15 ml mucous membrane JORGE LY DRY 01/14/25 Unknown History (Biotene Dry Mouth Oral Rinse MOUTH mouthwash) Allergy/AdvReac Type Severity Reaction Status Date / Time losartan (From [facility]) Allergy Mild Rash Verified 12/29/24 12:52 cefepime Allergy Unknown NEEDS Verified 12/29/24 12:52 FOLLOW-UP clonazepam Allergy Unknown NEEDS Verified 12/29/24 12:52 FOLLOW-UP hydromorphone Allergy Unknown NEEDS Verified 12/29/24 12:52 FOLLOW-UP ketamine Allergy Unknown NEEDS Verified 12/29/24 12:52 FOLLOW-UP lisinopril Allergy Unknown NEEDS Verified 12/29/24 12:52 FOLLOW-UP vancomycin Allergy Rash Verified 12/29/24 12:52 amlodipine AdvReac Swelling Verified 12/29/24 12:52 Family History Mother Hypertension Cancer Pancreatic Diabetes Father Cancer pancreatic Brother Diabetes Asthma Hypertension Grandfather Diabetes Surgical History Hx of BKA Hx of breast reduction, elective Chronic knee pain after total replacement of left knee joint H/O foot surgery History of hysterectomy History of tonsillectomy Social History household members: significant other Smoking Status: Former smoker alcohol intake: never substance use type: does not use ROS Constitutional Constitutional: Reports fever(s); Denies chills, fatigue or malaise Eyes Eyes: Denies blurry vision ENT HEENT: Denies headache(s) or nasal discharge Cardiovascular Cardiovascular: Denies chest pain, dyspnea on exertion or syncope Respiratory/Chest Respiratory/Chest: Reports shortness of breath at rest and shortness of breath with exertion; Denies cough Gastrointestinal Gastrointestinal: Denies constipation, diarrhea, nausea or vomiting Genitourinary Genitourinary: Denies dysuria Neurologic Neurologic: Denies focal weakness, numbness or tremor(s) Psychiatric Psychiatric: Denies anxiety or depression Vital Signs Vital Signs Vital Signs: 01/14/25 08:18 01/14/25 08:23 01/14/25 08:24 Temperature 101 F H 101 F H Temperature Source Oral Oral Pulse Rate 108 H 108 H Respiratory Rate 25 H 24 H Respiratory Effort Short of Breath Labored Respiratory Depth Shallow Respiratory Pattern Tachypnea Blood Pressure 164/120 H 164/120 H Blood Pressure Mean 134 134 Pulse Ox 98 95 Oxygen Delivery Method Bi-pap Bi-pap Bi-pap Fraction of Inspired Oxygen (FIO2) 01/14/25 08:26 01/14/25 08:26 01/14/25 08:28 Temperature Temperature Source Pulse Rate 98 Respiratory Rate 34 H Respiratory Effort Short of Breath Labored Respiratory Depth Respiratory Pattern Normal Blood Pressure Blood Pressure Mean Pulse Ox 95 Oxygen Delivery Method Bi-pap Fraction of Inspired Oxygen (FIO2) 60 01/14/25 09:17 01/14/25 09:50 01/14/25 09:57 Temperature Temperature Source Pulse Rate 101 H 104 H 104 H Respiratory Rate 20 H 18 18 Respiratory Effort Respiratory Depth Respiratory Pattern Normal Normal Blood Pressure 210/169 H Blood Pressure Mean 182 Pulse Ox 99 96 Oxygen Delivery Method Bi-pap Fraction of Inspired Oxygen (FIO2) 50 01/14/25 10:00 01/14/25 11:00 01/14/25 11:56 Temperature 101 F H Temperature Source Pulse Rate 104 H 98 98 Respiratory Rate 13 19 H 19 H Respiratory Effort Respiratory Depth Respiratory Pattern Blood Pressure 210/169 H Blood Pressure Mean 182 Pulse Ox 99 98 98 Oxygen Delivery Method Bi-pap Bi-pap Fraction of Inspired Oxygen (FIO2) 01/14/25 12:00 Temperature Temperature Source Pulse Rate 86 Respiratory Rate 16 Respiratory Effort Respiratory Depth Respiratory Pattern Blood Pressure 123/83 H Blood Pressure Mean 96 Pulse Ox 98 Oxygen Delivery Method Bi-pap Fraction of Inspired Oxygen (FIO2) Weight Weight: 357 lb 5.909 oz Body Mass Index (BMI) 57.6 Physical Exam Narrative General: Alert, Oriented x3, Cooperative, No apparent distress HEENT: Atraumatic, PERRLA, EOMI, Normocephalic Oral: Moist Mucosa Neck: Supple, No JVD Lungs: Diminished, Normal air movement, No rhonchi, No wheeze, No rales Cardiovascular: Regular rate, Regular Rhythm, Normal S1, Normal S2, No murmurs Abdomen: Soft, Non Tender, Non-Distended, No Hepato-splenomegaly Extremities: No edema, Capillary Refill Less than 3 Seconds Skin: No rashes, No breakdown Musculoskeletal: Bilateral BKA Neurological: No focal neurological deficits, Motor Exam 5/5 strength throughout, Sensory exam intact to light touch and pain Psych/Mental Status: Normal Affect, Appropriate Results Lab / Micro Data 01/14/25 10:11 01/14/25 10:11 Labs: Laboratory Results - last 24 hr 01/14/25 10:11: WBC 11.8 H, RBC 4.28, Hgb 12.2, Hct 37.1, MCV 86.7, MCH 28.5, MCHC 32.9, RDW Std Deviation 48.4 H, RDW Coeff of Naga 15.3 H, Plt Count 259, MPV10.5, Immature Gran % (Auto) 0.500, Neut % (Auto) 87.3 H, Lymph % (Auto) 5.9 L, Rabun % (Auto) 5.2, Eos % (Auto) 0.8, Baso % (Auto) 0.3, Absolute Neuts (auto) 10.3 H, Absolute Lymphs (auto) 0.69 L, Nucleated RBC % 0, PT 13.7, INR 1.0, APTT26.3, Sodium 138, Potassium 4.7, Chloride 102, Carbon Dioxide 24.7, Anion Gap 11, BUN 13, Creatinine 0.73, Estim Creat Clear Calc 111.14, Est GFR (MDRD) Non-Af 91, BUN/Creatinine Ratio 17.1, Glucose 124 H, Lactic Acid 1.3, Calcium 9.1, Total Bilirubin 0.36, AST 21, ALT 17, Alkaline Phosphatase 141 H, Troponin T High Sens 8, NT pro BNP II 237, Total Protein 7.2, Albumin 3.8, Globulin 3.3, Albumin/Globulin Ratio 1.2 01/14/25 10:45: Urine Color Yellow, Urine Clarity Clear, Urine pH 5.0, Ur Specific [place] 1.020, Urine Protein 15 H, Urine Glucose (UA) Normal, Urine Ketones Negative, Urine Occult Blood Negative, Urine Nitrite Negative, Urine Bilirubin Negative, Urine Urobilinogen Normal, Ur Leukocyte Esterase Negative, Urine RBC 0-5 SEEN, Urine WBC 0 SEEN, Ur Squamous Epith Cells 0-5 SEEN, Urine Bacteria 0 SEEN, Hyaline Casts 5- 10 SEEN, Fine Granular Casts 0-5 SEEN, Urine Mucus 1+ Micro: Microbiology 01/14/25 08:31 Mucosa - Nose SARS-CoV-2, Influenza & RSV (PCR) - Final ABG Data ABG results: ABG 01/14/25 09:11 Specimen Type ART Sample Site R Radial pH 7.37 Bicarbonate Actual 29.1 H Total CO2 31 Base Excess 4 H O2 Saturation 99 O2 % 60.0 ABG pCO2 50.6 H ABG pO2 129 H [place] Test Positive Respiration Rate 12 O2 Delivery Device BiPAP Vent Mode BiLevel POC PEEP 8 Imaging Radiology Impression Chest X-Ray 01/14/25 08:55 IMPRESSION: Mild degree of vascular congestion and CHF with bibasilar atelectasis. Reading Location: [facility] Chest CTA 01/14/25 11:05 IMPRESSION: 1. Limited sensitivity for peripheral pulmonary embolism on a technical basis. No central or definite pulmonary embolus identified. 2. Findings are compatible with multifocal LEFT lower lobe predominant pneumonia. Given nodular components, recommend CT chest in 3 months to document resolution. 3. Mild splenomegaly. 4. Additional description as above. Reading Location: [id number] Assessment & Plan Assessment/Plan (1) Acute hypoxemic respiratory failure: (2) Pneumonia: PLAN: Plan 1. Acute hypoxic respiratory failure secondary to left lower lobe pneumonia ? On arrival she was tachypneic with an increased work of breathing, at the timeof my exam she has been on BiPAP so the symptoms have resolved ? She does not wear oxygen during the day and is only supposed to be wearing BiPAP at night therefore this is a significant change in her respiratory status ? Continue with Levaquin ? Sputum cultures pending ? Will continue with gentle IV fluids while she is on BiPAP ? She is not septic 2. Essential HTN/HLD/morbid obesity ? Recommend weight loss and dietary modifications, BMI is 57.7 ? Continue with her home blood pressure medications ? Continue with her cholesterol medications ? Will monitor make adjustments as necessary 3. DM2 ? Hold metformin ? Sliding scale insulin ? Accu-Cheks ACHS ? Will monitor make adjustments as necessary 4. COPD/asthma with FAY ? Continue with BiPAP ? No evidence of wheezing on exam, will hold off steroids given her diabetes andher infection ? Continue with her inhalers 5. Anxiety/depression ? Stable ? Continue with her home medications DVT: Lovenox 75 minutes was spent on direct patient care, including documentation as well as chart review and collaboration with colleagues Charges/Coding Visit Charges Inpatient E&M: 56349 Init Hosp L3 01/14/25 1536 <Electronically signed by Rigo Trinidad MD> Cosigner Signature (if applicable): CC: Dr. Rigo Trinidad MD; Dr. Louis Penn MD~ Signed [facility] Work Phone: [phone] Discharge summary Author Colt Chappell [facility] Note Date/Time January 14, 2025 2:0 8pm [facility] Medical Records Department [address] [place] [address] Emergency Department Summary 01/14/25 MR#: [id number] Acct: [id number] Name: SIOBHAN HAAS Rep #:[id number] : 1960 64 From: Colt Mcdaniel PCP: Dr. Louis Penn MD Status:ADM I N Location: [place] [address] HPI History of Present Illness Chief Complaint: Shortness of Breath Informant: patient, EMS and SNF Narrative Narrative: 64-year-old female presenting to the emergency room with shortness of breath. Patient states that yesterday she felt fine. She states that she slept okay during the night, par for her normal sleep with occasional up-and-down. This morning she went to get into a chair and suddenly felt short of breath with somemidsternal chest tightness. She was noted to be bluish hue around the lips and was noted to be hypoxic at 85. She wears BiPAP/CPAP at night and was put back on that. EMS was called. Prehospital EKG does not demonstrate STEMI. Patient denies significant cough. She has a history of prior DVT/PE but is not currently on anticoagulation. She does not recall what she was on before. She is noted by nursing to have a fever of 101 orally. She has not felt feverish yesterday or during the night. Brief review of the patient's chart shows that the patient had pulmonary embolism in 2021. She was on Eliquis. She had respiratory failure at that timebut was also complicated by sepsis due to cellulitis. Patient reportedly has had significant red man syndrome to vancomycin. 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 Pulmonary embolism Current use of [facility] anticoagulation Chronic wound of extremity Anemia Necrotizing fasciitis Below knee amputation Depression Rheumatoid arthritis GERD (gastroesophageal reflux disease) Former smoker BiPAP (biphasic positive airway pressure) dependence Sleep apnea Hypertension Failure of outpatient treatment Anxiety and depression Bronchospasm Asthma exacerbation Family history of diabetes mellitus (DM) Restless leg syndrome Obstructive sleep apnea Morbid obesity Fibromyalgia Reflex sympathetic dystrophy Benign essential HTN Asthma Anxiety Home Medications ?Medication ?Instructions ?Recorded ?Last Taken ?Type albuterol sulfate 90 mcg/actuation 2 puff inhalation Q 6H PRN 05/11/21 08/24/22 Rx aerosol inhaler shortness of breath or wheez ing #8.5 grams valsartan 320 mg tablet 320 mg PO DAILY heart 08/31/22 History omeprazole 40 mg capsule,delayed 40 mg PO DAILY gerd 0 06/15/21 08/31/22 History release pramipexole 1.5 mg tablet 3 mg PO QHS RESTLESS LEG SYN DROME 06/15/21 08/30/22 History amitriptyline 100 mg tablet 100 mg PO QHS PHANTOM 0 10/2208/30/22 History PAIN/DEPRESSION cholecalciferol (vitamin D3) 1,250 1,250 mcg PO MO SUP PLEMENT 08/31/22 08/28/22 History mcg (50,000 unit) capsule metoprolol succinate 50 mg 50 mg PO DAILY blood pressu re 10/16/22 Unknown History tablet,extended release 24 hr montelukast 10 mg tablet 10 mg PO DAILY asthma Unknown History albuterol sulfate 2.5 mg/3 mL 1.25 mg inhalation Q4H P RN 07/21/23 Unknown History (0.083 %) solution for nebulization sob/wheezing atorvastatin 10 mg tablet 10 mg PO QHS cholesterol Unknown History docusate sodium 100 mg capsule 100 mg PO DAILY constip ation 07/21/23 Unknown History (Colace) fluticasone 250 mcg-salmeterol 50 1 inh inhalation BID copd 07/21/23 Unknown History mcg/dose blistr powdr for inhalation (Advair Diskus) fluticasone propionate 50 1 spray intranasal DAILY all ergies 07/21/23 Unknown History mcg/actuation nasal spray,suspension (Flonase Allergy Relief) gabapentin 300 mg capsule 300 mg PO DAILY phantom pain 07/21/23 Unknown History loratadine 10 mg tablet (Allergy 10 mg PO DAILY allerg ies 07/21/23 Unknown History Relief (loratadine)) melatonin 5 mg tablet 5 mg PO QHS sleep 07/21/23 U nknown History multivitamin (Daily Multi-Vitamin 1 tab PO DAILY suppl ement 07/21/23 Unknown History tablet) metformin 850 mg tablet 850 mg PO BID DIABETES 05/06 Unknown History sertraline 50 mg tablet 50 mg PO DAILY DEPRESSION Unknown History acetaminophen 500 mg tablet 1,000 mg PO Q8H PRN pain 0 05/08/24 Unknown History (Acetaminophen Extra Strength) hydroxyzine pamoate 25 mg capsule 25 mg PO Q6H PRN anx iety 05/08/24 Unknown History (Vistaril) bisacodyl 10 mg rectal suppository 10 mg MO QHS PRN co nstipation 01/14/25 Unknown History buprenorphine HCl 300 mcg buccal 300 mcg buccal BID Unknown History film (Belbuca) diphenhydramine HCl 25 mg tablet 25 mg PO Q4H PRN diann rgic reaction 01/14/25 Unknown History (Benadryl Allergy) gabapentin 300 mg capsule 600 mg PO QHS FOR PHANTOM PA IN 01/14/25 Unknown History guaifenesin 100 mg/5 mL oral 200 mg PO Q6H PRN cough 0 01/14/25 Unknown History liquid (Adult Tussin Chest Congestion) guaifenesin 600 mg tablet, 600 mg PO BID PRN congestio n 01/14/25 Unknown History extended release 12 hr (Mucinex) ibuprofen 200 mg tablet (Advil) 400 mg PO Q12H PRN arjun n 01/14/25 Unknown History lidocaine 5 % topical patch 1 patch topical QHS PAIN 0 01/14/25 Unknown History (DermacinRx Lidocan) magnesium hydroxide 400 mg/5 mL 2,400 mg PO DAILY PRN constipation 01/14/25 Unknown History oral suspension (Dulcolax (magnesium hydroxide)) mineral oil (Fleet Mineral Oil 118 ml MO DAILY PRN con stipation 01/14/25 Unknown History enema) polyethylene glycol 3350 17 17 g PO DAILY PRN constipa tion 01/14/25 Unknown History gram/dose oral powder (ClearLax) potassium chloride 20 mEq/15 mL 6.6667 meq PO BID SUPP LEMENT 01/14/25 Unknown History oral liquid saliva substitute combo no.9 15 ml mucous membrane JORGE LY DRY 01/14/25 Unknown History (Biotene Dry Mouth Oral Rinse MOUTH mouthwash) Allergy/AdvReac Type Severity Reaction Status Date / Time losartan (From Rizaid) Allergy Mild Rash Verified 12/29/24 12:52 cefepime Allergy Unknown NEEDS Verified 12/29/24 12:52 FOLLOW-UP clonazepam Allergy Unknown NEEDS Verified 12/29/24 12:52 FOLLOW-UP hydromorphone Allergy Unknown NEEDS Verified 12/29/24 12:52 FOLLOW-UP ketamine Allergy Unknown NEEDS Verified 12/29/24 12:52 FOLLOW-UP lisinopril Allergy Unknown NEEDS Verified 12/29/24 12:52 FOLLOW-UP vancomycin Allergy Rash Verified 12/29/24 12:52 amlodipine AdvReac Swelling Verified 12/29/24 12:52 Family History Mother Hypertension Cancer Pancreatic Diabetes Father Cancer pancreatic Brother Diabetes Asthma Hypertension Grandfather Diabetes Surgical History Hx of BKA Hx of breast reduction, elective Chronic knee pain after total replacement of left knee joint H/O foot surgery History of hysterectomy History of tonsillectomy Social History household members: significant other Smoking Status: Former smoker alcohol intake: never substance use type: does not use ROS ROS ED Constitutional Constitutional ED: Reports fever(s); Denies chills or weight loss Eyes Eyes: Denies change in vision or diplopia ENT ENT ED: Denies ear pain, rhinorrhea or sore throat Cardiovascular Cardiovascular: Denies chest pain, orthopnea, palpitations or racing heartbeat Respiratory/Chest Respiratory/Chest: Reports dyspnea and dyspnea on exertion; Denies cough or orthopnea Gastrointestinal Gastrointestinal: Denies abdominal pain, diarrhea, nausea or vomiting Genitourinary Genitourinary ED: Denies dysuria, hematuria or urinary frequency Musculoskeletal Musculoskeletal: Denies arthralgias or myalgias Integumentary Denies abscess or rash Neurologic Neurologic: Denies headache(s) or weakness Psychiatric Psychiatric: Denies anxiety, depression, suicidal ideation or suicidal thoughts Endocrine Endocrinology: Denies polydipsia, polyphagia or polyuria Allergic/Immunologic Allergic/Immunologic ED: Denies mouth swelling, tongue swelling or urticaria EXAM Physical Exam Const Vital Signs: 01/14/25 08:18 01/14/25 08:23 01/14/25 08:24 Temperature 101 F H 101 F H Temperature Source Oral Oral Pulse Rate 108 H 108 H Respiratory Rate 25 H 24 H Respiratory Effort Short of Breath Labored Respiratory Depth Shallow Respiratory Pattern Tachypnea Blood Pressure 164/120 H 164/120 H Blood Pressure Mean 134 134 Pulse Ox 98 95 Oxygen Delivery Method Bi-pap Bi-pap Bi-pap Fraction of Inspired Oxygen (FIO2) 01/14/25 08:26 01/14/25 08:26 01/14/25 08:28 Temperature Temperature Source Pulse Rate 98 Respiratory Rate 34 H Respiratory Effort Short of Breath Labored Respiratory Depth Respiratory Pattern Normal Blood Pressure Blood Pressure Mean Pulse Ox 95 Oxygen Delivery Method Bi-pap Fraction of Inspired Oxygen (FIO2) 60 01/14/25 09:17 01/14/25 09:50 01/14/25 09:57 Temperature Temperature Source Pulse Rate 101 H 104 H 104 H Respiratory Rate 20 H 18 18 Respiratory Effort Respiratory Depth Respiratory Pattern Normal Normal Blood Pressure 210/169 H Blood Pressure Mean 182 Pulse Ox 99 96 Oxygen Delivery Method Bi-pap Fraction of Inspired Oxygen (FIO2) 50 01/14/25 10:00 01/14/25 11:00 01/14/25 11:56 Temperature 101 F H Temperature Source Pulse Rate 104 H 98 98 Respiratory Rate 13 19 H 19 H Respiratory Effort Respiratory Depth Respiratory Pattern Blood Pressure 210/169 H Blood Pressure Mean 182 Pulse Ox 99 98 98 Oxygen Delivery Method Bi-pap Bi-pap Fraction of Inspired Oxygen (FIO2) Positive well nourished, well developed and obese General Appearance ED: well developed Nutritional Appearance: obese HEENT Reports normocephalic, head/scalp atraumatic and moist mucous membranes Eyes PERRL and EOMs intact bilaterally Neck no lymphadenopathy, supple and no JVD Resp clear to auscultation bilaterally Resp Narrative: Tachypneic Cardio regular rate, regular rhythm and no murmurs Rate: tachycardic GI normal to inspection, nondistended, normoactive bowel sounds and non-tender Palpation: soft Back/Spine no CVA tenderness and normal ROM Extremity Extremity Narrative: Bilateral below-knee amputations General Extremety ED: Negative for edema General Extremity: Negative for edema Neuro oriented x3 and CN's II-XII intact bilaterally Sensorium / Orientation: alert Motor Exam: strength 5/5 throughout Psych mental status grossly normal Mood & Affect: Negative for depressed or tearful Skin no rashes or lesions noted and no wounds MDM MDM MDM Narrative Medical decision making narrative: Differential diagnosis includes but not limited to pulmonary embolism pneumonia UTI sepsis acute coronary syndrome pneumothorax pleural effusion congestive heart failure aortic dissection aneurysm ABG shows a pH of 7.368. pCO2 50.6 PaO2 128.5 HCO3 29.1. This is on 60% BiPAP. Patient's white count 11.8 hemoglobin 12.2 BMP with creatinine 0.73 lactic acid 1.3 normal LFTs except for alkaline phosphatase 141 troponin 8 proBNP 237 urinalysis with no overt infection. My independent interpretation of the chest x-ray is no definitive infiltrate pleural effusion. Please see radiologist read. EKG is sinus and nonischemic. A CTA of the chest was obtained given the patient's prior history of pulmonary embolism and unexplained hypoxia. This is read by radiology reviewed by myself. This is consistent with a retrocardiac left lower lobe infiltrate. Patient hasreceived DuoNeb. I do not hear significant wheezing on examination. She also received a dose of Levaquin after blood cultures were obtained. She received Tylenol for fever. Plan of care is going to be admission into hospital. She remains on BiPAP for comfort/hypoxemia. History & Record Review Discussion w/independent historian: Patient Additional record(s) reviewed:: Prior inpatient record, Prior ED visit and Priorlabs Lab Data Attestation: I reviewed the patient's lab results. Labs: Laboratory Results - last 24 hr 01/14/25 01/14/25 10:11 10:45 WBC 11.8 H RBC 4.28 Hgb 12.2 Hct 37.1 MCV 86.7 MCH 28.5 MCHC 32.9 RDW Std Deviation 48.4 H RDW Coeff of Naga 15.3 H Plt Count 259 MPV 10.5 Immature Gran % (Auto) 0.500 Neut % (Auto) 87.3 H Lymph % (Auto) 5.9 L Rab[place] % (Auto) 5.2 Eos % (Auto) 0.8 Baso % (Auto) 0.3 Absolute Neuts (auto) 10.3 H Absolute Lymphs (auto) 0.69 L Nucleated RBC % 0 PT 13.7 INR 1.0 APTT 26.3 Sodium 138 Potassium 4.7 Chloride 102 Carbon Dioxide 24.7 Anion Gap 11 BUN 13 Creatinine 0.73 Estim Creat Clear Calc 111.14 Est GFR (MDRD) Non-Af 91 BUN/Creatinine Ratio 17.1 Glucose 124 H Lactic Acid 1.3 Calcium 9.1 Total Bilirubin 0.36 AST 21 ALT 17 Alkaline Phosphatase 141 H Troponin T High Sens 8 NT pro BNP II 237 Total Protein 7.2 Albumin 3.8 Globulin 3.3 Albumin/Globulin Ratio 1.2 Urine Color Yellow Urine Clarity Clear Urine pH 5.0 Ur Specific [place] 1.020 Urine Protein 15 H Urine Glucose (UA) Normal Urine Ketones Negative Urine Occult Blood Negative Urine Nitrite Negative Urine Bilirubin Negative Urine Urobilinogen Normal Ur Leukocyte Esterase Negative Urine RBC 0-5 SEEN Urine WBC 0 SEEN Ur Squamous Epith Cells 0-5 SEEN Urine Bacteria 0 SEEN Hyaline Casts 5-10 SEEN Fine Granular Casts 0-5 SEEN Urine Mucus 1+ ABG Data ABG results: ABG 01/14/25 09:11 Specimen Type ART Sample Site R Radial pH 7.37 Bicarbonate Actual 29.1 H Total CO2 31 Base Excess 4 H O2 Saturation 99 O2 % 60.0 ABG pCO2 50.6 H ABG pO2 129 H [place] Test Positive Respiration Rate 12 O2 Delivery Device BiPAP Vent Mode BiLevel POC PEEP 8 Radiography Diagnostic Testing: Clinical Impression(s) from Imaging Studies Chest X-Ray 01/14/25 08:55 IMPRESSION: Mild degree of vascular congestion and CHF with bibasilar atelectasis. Reading Location: [facility] Chest CTA 01/14/25 11:05 IMPRESSION: 1. Limited sensitivity for peripheral pulmonary embolism on a technical basis. No central or definite pulmonary embolus identified. 2. Findings are compatible with multifocal LEFT lower lobe predominant pneumonia. Given nodular components, recommend CT chest in 3 months to document resolution. 3. Mild splenomegaly. 4. Additional description as above. Reading Location: [facility] EKG Initial EKG: Attestation: I personally reviewed and interpreted this EKG as follows: Comments: Normal sinus rhythm ventricular rate of 96 bpm Management Discussion w/another healthcare provider: Hospitalist (Dr Trinidad) Discharge Plan Dx/Rx/DC Orders Clinical Impression: Pneumonia, Acute hypoxemic respiratory failure Disposition Disposition: Acute Care Hospital [facility] What to do if you have Problems For any increased pain, shortness of breath, bleeding, nausea or vomiting, chestpain, or any unexpected problems, contact your Primary Care Provider. Call [facility] ([phone]) or report to the closest Emergency Room. Call 911 if necessary. 01/14/25 1408 <Electronically signed by Colt Chappell DO> Cosigner Signature (if applicable): CC: Dr. Louis Penn MD ~ Signed [facility] Work Phone: [phone] History and physical note [facility] Medical Records Department [address] [place] [address] H&P Exam - Hospitalist 01/14/25 1216 MR#: [id number] Acct: [id number] Name: SIOBHAN HAAS Rep #:[id number] : 1960 64 From: Rigo jackson MD PCP: Dr. Louis Penn MD Status:ADM I N Location: [place] [address] HPI - General General Date of Admission: 01/14/25 HPI Narrative SIOBHAN HAAS, is a 64 F who presents to the hospital with the increased shortness of breath and found to be in respiratory failure necessitating BiPAP. She said that she felt fine last evening andthen this morning she was getting into a chair where she felt suddenly short of breath. She was found to have a fever of 101, but denies any chills and no sick contacts though [address] [place] [address] [place]. Initially there is concern for possible PE so CTA of the chest was obtained whichdemonstrated left lower lobe pneumonia and no definite PE. Denies any chest pain. She does wear BiPAP at baseline but only at night and today she was hypoxic and at the longterm and was transported to the ER. 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 Chronic wound of extremity Anemia Necrotizing fasciitis Below knee amputation Depression Rheumatoid arthritis GERD (gastroesophageal reflux disease) Former smoker BiPAP (biphasic positive airway pressure) dependence Sleep apnea Hypertension Failure of outpatient treatment Anxiety and depression Bronchospasm Asthma exacerbation Family history of diabetes mellitus (DM) Restless leg syndrome Obstructive sleep apnea Morbid obesity Fibromyalgia Reflex sympathetic dystrophy Benign essential HTN Asthma Anxiety Home Medications ?Medication ?Instructions ?Recorded ?Last Taken ?Type albuterol sulfate 90 mcg/actuation 2 puff inhalation Q 6H PRN 05/11/21 08/24/22 Rx aerosol inhaler shortness of breath or wheez ing #8.5 grams valsartan 320 mg tablet 320 mg PO DAILY heart 08/31/22 History omeprazole 40 mg capsule,delayed 40 mg PO DAILY gerd 0 06/15/21 08/31/22 History release pramipexole 1.5 mg tablet 3 mg PO QHS RESTLESS LEG SYN DROME 06/15/21 08/30/22 History amitriptyline 100 mg tablet 100 mg PO QHS PHANTOM 12/0 10/2208/30/22 History PAIN/DEPRESSION cholecalciferol (vitamin D3) 1,250 1,250 mcg PO MO SUP PLEMENT 08/31/22 08/28/22 History mcg (50,000 unit) capsule metoprolol succinate 50 mg 50 mg PO DAILY blood pressu re 10/16/22 Unknown History tablet,extended release 24 hr montelukast 10 mg tablet 10 mg PO DAILY asthma Unknown History albuterol sulfate 2.5 mg/3 mL 1.25 mg inhalation Q4H P RN 07/21/23 Unknown History (0.083 %) solution for nebulization sob/wheezing atorvastatin 10 mg tablet 10 mg PO QHS cholesterol Unknown History docusate sodium 100 mg capsule 100 mg PO DAILY constip ation 07/21/23 Unknown History (Colace) fluticasone 250 mcg-salmeterol 50 1 inh inhalation BID copd 07/21/23 Unknown History mcg/dose blistr powdr for inhalation (Advair Diskus) fluticasone propionate 50 1 spray intranasal DAILY all ergies 07/21/23 Unknown History mcg/actuation nasal spray,suspension (Flonase Allergy Relief) gabapentin 300 mg capsule 300 mg PO DAILY phantom pain 07/21/23 Unknown History loratadine 10 mg tablet (Allergy 10 mg PO DAILY allerg ies 07/21/23 Unknown History Relief (loratadine)) melatonin 5 mg tablet 5 mg PO QHS sleep 07/21/23 U nknown History multivitamin (Daily Multi-Vitamin 1 tab PO DAILY suppl ement 07/21/23 Unknown History tablet) metformin 850 mg tablet 850 mg PO BID DIABETES 05/06 Unknown History sertraline 50 mg tablet 50 mg PO DAILY DEPRESSION Unknown History acetaminophen 500 mg tablet 1,000 mg PO Q8H PRN pain 0 05/08/24 Unknown History (Acetaminophen Extra Strength) hydroxyzine pamoate 25 mg capsule 25 mg PO Q6H PRN anx iety 05/08/24 Unknown History (Vistaril) bisacodyl 10 mg rectal suppository 10 mg MO QHS PRN co nstipation 01/14/25 Unknown History buprenorphine HCl 300 mcg buccal 300 mcg buccal BID Unknown History film (Belbuca) diphenhydramine HCl 25 mg tablet 25 mg PO Q4H PRN diann rgic reaction 01/14/25 Unknown History (Benadryl Allergy) gabapentin 300 mg capsule 600 mg PO QHS FOR PHANTOM PA IN 01/14/25 Unknown History guaifenesin 100 mg/5 mL oral 200 mg PO Q6H PRN cough 0 01/14/25 Unknown History liquid (Adult Tussin Chest Congestion) guaifenesin 600 mg tablet, 600 mg PO BID PRN congestio n 01/14/25 Unknown History extended release 12 hr (Mucinex) ibuprofen 200 mg tablet (Advil) 400 mg PO Q12H PRN arjun n 01/14/25 Unknown History lidocaine 5 % topical patch 1 patch topical QHS PAIN 0 01/14/25 Unknown History (DermacinRx Lidocan) magnesium hydroxide 400 mg/5 mL 2,400 mg PO DAILY PRN constipation 01/14/25 Unknown History oral suspension (Dulcolax (magnesium hydroxide)) mineral oil (Fleet Mineral Oil 118 ml MO DAILY PRN con stipation 01/14/25 Unknown History enema) polyethylene glycol 3350 17 17 g PO DAILY PRN constipa tion 01/14/25 Unknown History gram/dose oral powder (ClearLax) potassium chloride 20 mEq/15 mL 6.6667 meq PO BID SUPP LEMENT 01/14/25 Unknown History oral liquid saliva substitute combo no.9 15 ml mucous membrane JORGE LY DRY 01/14/25 Unknown History (Biotene Dry Mouth Oral Rinse MOUTH mouthwash) Allergy/AdvReac Type Severity Reaction Status Date / Time losartan (From Cozaar) Allergy Mild Rash Verified 12/29/24 12:52 cefepime Allergy Unknown NEEDS Verified 12/29/24 12:52 FOLLOW-UP clonazepam Allergy Unknown NEEDS Verified 12/29/24 12:52 FOLLOW-UP hydromorphone Allergy Unknown NEEDS Verified 12/29/24 12:52 FOLLOW-UP ketamine Allergy Unknown NEEDS Verified 12/29/24 12:52 FOLLOW-UP lisinopril Allergy Unknown NEEDS Verified 12/29/24 12:52 FOLLOW-UP vancomycin Allergy Rash Verified 12/29/24 12:52 amlodipine AdvReac Swelling Verified 12/29/24 12:52 Family History Mother Hypertension Cancer Pancreatic Diabetes Father Cancer pancreatic Brother Diabetes Asthma Hypertension Grandfather Diabetes Surgical History Hx of BKA Hx of breast reduction, elective Chronic knee pain after total replacement of left knee joint H/O foot surgery History of hysterectomy History of tonsillectomy Social History household members: significant other Smoking Status: Former smoker alcohol intake: never substance use type: does not use ROS Constitutional Constitutional: Reports fever(s); Denies chills, fatigue or malaise Eyes Eyes: Denies blurry vision ENT HEENT: Denies headache(s) or nasal discharge Cardiovascular Cardiovascular: Denies chest pain, dyspnea on exertion or syncope Respiratory/Chest Respiratory/Chest: Reports shortness of breath at rest and shortness of breath with exertion; Denies cough Gastrointestinal Gastrointestinal: Denies constipation, diarrhea, nausea or vomiting Genitourinary Genitourinary: Denies dysuria Neurologic Neurologic: Denies focal weakness, numbness or tremor(s) Psychiatric Psychiatric: Denies anxiety or depression Vital Signs Vital Signs Vital Signs: 01/14/25 08:18 01/14/25 08:23 01/14/25 08:24 Temperature 101 F H 101 F H Temperature Source Oral Oral Pulse Rate 108 H 108 H Respiratory Rate 25 H 24 H Respiratory Effort Short of Breath Labored Respiratory Depth Shallow Respiratory Pattern Tachypnea Blood Pressure 164/120 H 164/120 H Blood Pressure Mean 134 134 Pulse Ox 98 95 Oxygen Delivery Method Bi-pap Bi-pap Bi-pap Fraction of Inspired Oxygen (FIO2) 01/14/25 08:26 01/14/25 08:26 01/14/25 08:28 Temperature Temperature Source Pulse Rate 98 Respiratory Rate 34 H Respiratory Effort Short of Breath Labored Respiratory Depth Respiratory Pattern Normal Blood Pressure Blood Pressure Mean Pulse Ox 95 Oxygen Delivery Method Bi-pap Fraction of Inspired Oxygen (FIO2) 60 01/14/25 09:17 01/14/25 09:50 01/14/25 09:57 Temperature Temperature Source Pulse Rate 101 H 104 H 104 H Respiratory Rate 20 H 18 18 Respiratory Effort Respiratory Depth Respiratory Pattern Normal Normal Blood Pressure 210/169 H Blood Pressure Mean 182 Pulse Ox 99 96 Oxygen Delivery Method Bi-pap Fraction of Inspired Oxygen (FIO2) 50 01/14/25 10:00 01/14/25 11:00 01/14/25 11:56 Temperature 101 F H Temperature Source Pulse Rate 104 H 98 98 Respiratory Rate 13 19 H 19 H Respiratory Effort Respiratory Depth Respiratory Pattern Blood Pressure 210/169 H Blood Pressure Mean 182 Pulse Ox 99 98 98 Oxygen Delivery Method Bi-pap Bi-pap Fraction of Inspired Oxygen (FIO2) 01/14/25 12:00 Temperature Temperature Source Pulse Rate 86 Respiratory Rate 16 Respiratory Effort Respiratory Depth Respiratory Pattern Blood Pressure 123/83 H Blood Pressure Mean 96 Pulse Ox 98 Oxygen Delivery Method Bi-pap Fraction of Inspired Oxygen (FIO2) Weight Weight: 357 lb 5.909 oz Body Mass Index (BMI) 57.6 Physical Exam Narrative General: Alert, Oriented x3, Cooperative, No apparent distress HEENT: Atraumatic, PERRLA, EOMI, Normocephalic Oral: Moist Mucosa Neck: Supple, No JVD Lungs: Diminished, Normal air movement, No rhonchi, No wheeze, No rales Cardiovascular: Regular rate, Regular Rhythm, Normal S1, Normal S2, No murmurs Abdomen: Soft, Non Tender, Non-Distended, No Hepato-splenomegaly Extremities: No edema, Capillary Refill Less than 3 Seconds Skin: No rashes, No breakdown Musculoskeletal: Bilateral BKA Neurological: No focal neurological deficits, Motor Exam 5/5 strength throughout, Sensory exam intact to light touch and pain Psych/Mental Status: Normal Affect, Appropriate Results Lab / Micro Data 01/14/25 10:11 01/14/25 10:11 Labs: Laboratory Results - last 24 hr 01/14/25 10:11: WBC 11.8 H, RBC 4.28, Hgb 12.2, Hct 37.1, MCV 86.7, MCH 28.5, MCHC 32.9, RDW Std Deviation 48.4 H, RDW Coeff of Naga 15.3 H, Plt Count 259, MPV10.5, Immature Gran % (Auto) 0.500, Neut % (Auto) 87.3 H, Lymph % (Auto) 5.9 L, Rabun % (Auto) 5.2, Eos % (Auto) 0.8, Baso % (Auto) 0.3, Absolute Neuts (auto) 10.3 H, Absolute Lymphs (auto) 0.69 L, Nucleated RBC % 0, PT 13.7, INR 1.0, APTT26.3, Sodium 138, Potassium 4.7, Chloride 102, Carbon Dioxide 24.7, Anion Gap 11, BUN 13, Creatinine 0.73, Estim Creat Clear Calc 111.14, Est GFR (MDRD) Non-Af 91, BUN/Creatinine Ratio 17.1, Glucose 124 H, Lactic Acid 1.3, Calcium 9.1, Total Bilirubin 0.36, AST 21, ALT 17, Alkaline Phosphatase 141 H, Troponin T High Sens 8, NT pro BNP II 237, Total Protein 7.2, Albumin 3.8, Globulin 3.3, Albumin/Globulin Ratio 1.2 01/14/25 10:45: Urine Color Yellow, Urine Clarity Clear, Urine pH 5.0, Ur Specific [place] 1.020, Urine Protein 15 H, Urine Glucose (UA) Normal, Urine Ketones Negative, Urine Occult Blood Negative, Urine Nitrite Negative, Urine Bilirubin Negative, Urine Urobilinogen Normal, Ur Leukocyte Esterase Negative, Urine RBC 0-5 SEEN, Urine WBC 0 SEEN, Ur Squamous Epith Cells 0-5 SEEN, Urine Bacteria 0 SEEN, Hyaline Casts 5-10 SEEN, Fine Granular Casts 0-5 SEEN, Urine Mucus 1+ Micro: Microbiology 01/14/25 08:31 Mucosa - Nose SARS-CoV-2, Influenza & RSV (PCR) - Final ABG Data ABG results: ABG 01/14/25 09:11 Specimen Type ART Sample Site R Radial pH 7.37 Bicarbonate Actual 29.1 H Total CO2 31 Base Excess 4 H O2 Saturation 99 O2 % 60.0 ABG pCO2 50.6 H ABG pO2 129 H [place] Test Positive Respiration Rate 12 O2 Delivery Device BiPAP Vent Mode BiLevel POC PEEP 8 Imaging Radiology Impression Chest X-Ray 01/14/25 08:55 IMPRESSION: Mild degree of vascular congestion and CHF with bibasilar atelectasis. Reading Location: [facility] Chest CTA 01/14/25 11:05 IMPRESSION: 1. Limited sensitivity for peripheral pulmonary embolism on a technical basis. No central or definite pulmonary embolus identified. 2. Findings are compatible with multifocal LEFT lower lobe predominant pneumonia. Given nodular components, recommend CT chest in 3 months to document resolution. 3. Mild splenomegaly. 4. Additional description as above. Reading Location: [facility] Assessment & Plan Assessment/Plan (1) Acute hypoxemic respiratory failure: (2) Pneumonia: PLAN: Plan 1. Acute hypoxic respiratory failure secondary to left lower lobe pneumonia ? On arrival she was tachypneic with an increased work of breathing, at the timeof my exam she has been on BiPAP so the symptoms have resolved ? She does not wear oxygen during the day and is only supposed to be wearing BiPAP at night therefore this is a significant change in her respiratory status ? Continue with Levaquin ? Sputum cultures pending ? Will continue with gentle IV fluids while she is on BiPAP ? She is not septic 2. Essential HTN/HLD/morbid obesity ? Recommend weight loss and dietary modifications, BMI is 57.7 ? Continue with her home blood pressure medications ? Continue with her cholesterol medications ? Will monitor make adjustments as necessary 3. DM2 ? Hold metformin ? Sliding scale insulin ? Accu-Cheks ACHS ? Will monitor make adjustments as necessary 4. COPD/asthma with FAY ? Continue with BiPAP ? No evidence of wheezing on exam, will hold off steroids given her diabetes andher infection ? Continue with her inhalers 5. Anxiety/depression ? Stable ? Continue with her home medications DVT: Lovenox 75 minutes was spent on direct patient care, including documentation as well as chart review and collaboration with colleagues Charges/Coding Visit Charges Inpatient E&M: 64705 Init Hosp L3 01/14/25 1535 Cosigner Signature (if applicable): CC: Dr. Rigo Trinidad MD; Dr. Louis Penn MD~ Signed [facility]04-16-2025 Discharge summary [facility] Medical Records Department [address] [place] [address] Emergency Department Summary 01/14/25 MR#: [id number] Acct: [id number] Name: SIOBHAN HAAS Rep #:[id number] : 1960 64 From: Colt Mcdaniel PCP: Dr. Louis Penn MD Status:ADM I N Location: [place] [address] HPI History of Present Illness Chief Complaint: Shortness of Breath Informant: patient, EMS and SNF Narrative Narrative: 64-year-old female presenting to the emergency room with shortness of breath. Patient states that yesterday she felt fine. She states that she slept okay during the night, par for her normal sleep with occasional up-and-down. This morning she went to get into a chair and suddenly felt short of breath with somemidsternal chest tightness. She was noted to be bluish hue around the lips and was notedto be hypoxic at 85. She wears BiPAP/CPAP at night and was put back on that. EMS was called. Prehospital EKG does not demonstrate STEMI. Patient denies significant cough. She has a history of prior DVT/PE but is not currently on anticoagulation. She does not recall what she was on before. She is noted by nursing to have a fever of 101 orally. She has not felt feverish yesterday or during the night. Brief review of the patient's chart shows that the patient had pulmonary embolism in 2021. She was on Eliquis. She had respiratory failure at that timebut was also complicated by sepsis due to cellulitis. Patient reportedly has had significant red man syndrome to vancomycin. 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 Pulmonary embolism Current use of [facility] anticoagulation Chronic wound of extremity Anemia Necrotizing fasciitis Below knee amputation Depression Rheumatoid arthritis GERD (gastroesophageal reflux disease) Former smoker BiPAP (biphasic positive airway pressure) dependence Sleep apnea Hypertension Failure of outpatient treatment Anxiety and depression Bronchospasm Asthma exacerbation Family history of diabetes mellitus (DM) Restless leg syndrome Obstructive sleep apnea Morbid obesity Fibromyalgia Reflex sympathetic dystrophy Benign essential HTN Asthma Anxiety Home Medications ?Medication ?Instructions ?Recorded ?Last Taken ?Type albuterol sulfate 90 mcg/actuation 2 puff inhalation Q 6H PRN 05/11/21 08/24/22 Rx aerosol inhaler shortness of breath or wheez ing #8.5 grams valsartan 320 mg tablet 320 mg PO DAILY heart 08/31/22 History omeprazole 40 mg capsule,delayed 40 mg PO DAILY gerd 0 06/15/21 08/31/22 History release pramipexole 1.5 mg tablet 3 mg PO QHS RESTLESS LEG SYN DROME 06/15/21 08/30/22 History amitriptyline 100 mg tablet 100 mg PO QHS PHANTOM 12/0 10/2208/30/22 History PAIN/DEPRESSION cholecalciferol (vitamin D3) 1,250 1,250 mcg PO MO SUP PLEMENT 08/31/22 08/28/22 History mcg (50,000 unit) capsule metoprolol succinate 50 mg 50 mg PO DAILY blood pressu re 10/16/22 Unknown History tablet,extended release 24 hr montelukast 10 mg tablet 10 mg PO DAILY asthma Unknown History albuterol sulfate 2.5 mg/3 mL 1.25 mg inhalation Q4H P RN 07/21/23 Unknown History (0.083 %) solution for nebulization sob/wheezing atorvastatin 10 mg tablet 10 mg PO QHS cholesterol Unknown History docusate sodium 100 mg capsule 100 mg PO DAILY constip ation 07/21/23 Unknown History (Colace) fluticasone 250 mcg-salmeterol 50 1 inh inhalation BID copd 07/21/23 Unknown History mcg/dose blistr powdr for inhalation (Advair Diskus) fluticasone propionate 50 1 spray intranasal DAILY all ergies 07/21/23 Unknown History mcg/actuation nasal spray,suspension (Flonase Allergy Relief) gabapentin 300 mg capsule 300 mg PO DAILY phantom pain 07/21/23 Unknown History loratadine 10 mg tablet (Allergy 10 mg PO DAILY allerg ies 07/21/23 Unknown History Relief (loratadine)) melatonin 5 mg tablet 5 mg PO QHS sleep 07/21/23 U nknown History multivitamin (Daily Multi-Vitamin 1 tab PO DAILY suppl ement 07/21/23 Unknown History tablet) metformin 850 mg tablet 850 mg PO BID DIABETES 05/06 Unknown History sertraline 50 mg tablet 50 mg PO DAILY DEPRESSION Unknown History acetaminophen 500 mg tablet 1,000 mg PO Q8H PRN pain 0 05/08/24 Unknown History (Acetaminophen Extra Strength) hydroxyzine pamoate 25 mg capsule 25 mg PO Q6H PRN anx iety 05/08/24 Unknown History (Vistaril) bisacodyl 10 mg rectal suppository 10 mg MO QHS PRN co nstipation 01/14/25 Unknown History buprenorphine HCl 300 mcg buccal 300 mcg buccal BID Unknown History film (Belbuca) diphenhydramine HCl 25 mg tablet 25 mg PO Q4H PRN diann rgic reaction 01/14/25 Unknown History (Benadryl Allergy) gabapentin 300 mg capsule 600 mg PO QHS FOR PHANTOM PA IN 01/14/25 Unknown History guaifenesin 100 mg/5 mL oral 200 mg PO Q6H PRN cough 0 01/14/25 Unknown History liquid (Adult Tussin Chest Congestion) guaifenesin 600 mg tablet, 600 mg PO BID PRN congestio n 01/14/25 Unknown History extended release 12 hr (Mucinex) ibuprofen 200 mg tablet (Advil) 400 mg PO Q12H PRN arjun n 01/14/25 Unknown History lidocaine 5 % topical patch 1 patch topical QHS PAIN 0 01/14/25 Unknown History (DermacinRx Lidocan) magnesium hydroxide 400 mg/5 mL 2,400 mg PO DAILY PRN constipation 01/14/25 Unknown History oral suspension (Dulcolax (magnesium hydroxide)) mineral oil (Fleet Mineral Oil 118 ml MO DAILY PRN con stipation 01/14/25 Unknown History enema) polyethylene glycol 3350 17 17 g PO DAILY PRN constipa tion 01/14/25 Unknown History gram/dose oral powder (ClearLax) potassium chloride 20 mEq/15 mL 6.6667 meq PO BID SUPP LEMENT 01/14/25 Unknown History oral liquid saliva substitute combo no.9 15 ml mucous membrane JORGE LY DRY 01/14/25 Unknown History (Biotene Dry Mouth Oral Rinse MOUTH mouthwash) Allergy/AdvReac Type Severity Reaction Status Date / Time losartan (From Cozaar) Allergy Mild Rash Verified 12/29/24 12:52 cefepime Allergy Unknown NEEDS Verified 12/29/24 12:52 FOLLOW-UP clonazepam Allergy Unknown NEEDS Verified 12/29/24 12:52 FOLLOW-UP hydromorphone Allergy Unknown NEEDS Verified 12/29/24 12:52 FOLLOW-UP ketamine Allergy Unknown NEEDS Verified 12/29/24 12:52 FOLLOW-UP lisinopril Allergy Unknown NEEDS Verified 12/29/24 12:52 FOLLOW-UP vancomycin Allergy Rash Verified 12/29/24 12:52 amlodipine AdvReac Swelling Verified 12/29/24 12:52 Family History Mother Hypertension Cancer Pancreatic Diabetes Father Cancer pancreatic Brother Diabetes Asthma Hypertension Grandfather Diabetes Surgical History Hx of BKA Hx of breast reduction, elective Chronic knee pain after total replacement of left knee joint H/O foot surgery History of hysterectomy History of tonsillectomy Social History household members: significant other Smoking Status: Former smoker alcohol intake: never substance use type: does not use ROS ROS ED Constitutional Constitutional ED: Reports fever(s); Denies chills or weight loss Eyes Eyes: Denies change in vision or diplopia ENT ENT ED: Denies ear pain, rhinorrhea or sore throat Cardiovascular Cardiovascular: Denies chest pain, orthopnea, palpitations or racing heartbeat Respiratory/Chest Respiratory/Chest: Reports dyspnea and dyspnea on exertion; Denies cough or orthopnea Gastrointestinal Gastrointestinal: Denies abdominal pain, diarrhea, nausea or vomiting Genitourinary Genitourinary ED: Denies dysuria, hematuria or urinary frequency Musculoskeletal Musculoskeletal: Denies arthralgias or myalgias Integumentary Denies abscess or rash Neurologic Neurologic: Denies headache(s) or weakness Psychiatric Psychiatric: Denies anxiety, depression, suicidal ideation or suicidal thoughts Endocrine Endocrinology: Denies polydipsia, polyphagia or polyuria Allergic/Immunologic Allergic/Immunologic ED: Denies mouth swelling, tongue swelling or urticaria EXAM Physical Exam Const Vital Signs: 01/14/25 08:18 01/14/25 08:23 01/14/25 08:24 Temperature 101 F H 101 F H Temperature Source Oral Oral Pulse Rate 108 H 108 H Respiratory Rate 25 H 24 H Respiratory Effort Short of Breath Labored Respiratory Depth Shallow Respiratory Pattern Tachypnea Blood Pressure 164/120 H 164/120 H Blood Pressure Mean 134 134 Pulse Ox 98 95 Oxygen Delivery Method Bi-pap Bi-pap Bi-pap Fraction of Inspired Oxygen (FIO2) 01/14/25 08:26 01/14/25 08:26 01/14/25 08:28 Temperature Temperature Source Pulse Rate 98 Respiratory Rate 34 H Respiratory Effort Short of Breath Labored Respiratory Depth Respiratory Pattern Normal Blood Pressure Blood Pressure Mean Pulse Ox 95 Oxygen Delivery Method Bi-pap Fraction of Inspired Oxygen (FIO2) 60 01/14/25 09:17 01/14/25 09:50 01/14/25 09:57 Temperature Temperature Source Pulse Rate 101 H 104 H 104 H Respiratory Rate 20 H 18 18 Respiratory Effort Respiratory Depth Respiratory Pattern Normal Normal Blood Pressure 210/169 H Blood Pressure Mean 182 Pulse Ox 99 96 Oxygen Delivery Method Bi-pap Fraction of Inspired Oxygen (FIO2) 50 01/14/25 10:00 01/14/25 11:00 01/14/25 11:56 Temperature 101 F H Temperature Source Pulse Rate 104 H 98 98 Respiratory Rate 13 19 H 19 H Respiratory Effort Respiratory Depth Respiratory Pattern Blood Pressure 210/169 H Blood Pressure Mean 182 Pulse Ox 99 98 98 Oxygen Delivery Method Bi-pap Bi-pap Fraction of Inspired Oxygen (FIO2) Positive well nourished, well developed and obese General Appearance ED: well developed Nutritional Appearance: obese HEENT Reports normocephalic, head/scalp atraumatic and moist mucous membranes Eyes PERRL and EOMs intact bilaterally Neck no lymphadenopathy, supple and no JVD Resp clear to auscultation bilaterally Resp Narrative: Tachypneic Cardio regular rate, regular rhythm and no murmurs Rate: tachycardic GI normal to inspection, nondistended, normoactive bowel sounds and non-tender Palpation: soft Back/Spine no CVA tenderness and normal ROM Extremity Extremity Narrative: Bilateral below-knee amputations General Extremety ED: Negative for edema General Extremity: Negative for edema Neuro oriented x3 and CN's II-XII intact bilaterally Sensorium / Orientation: alert Motor Exam: strength 5/5 throughout Psych mental status grossly normal Mood & Affect: Negative for depressed or tearful Skin no rashes or lesions noted and no wounds MDM MDM MDM Narrative Medical decision making narrative: Differential diagnosis includes but not limited to pulmonary embolism pneumonia UTI sepsis acute coronary syndrome pneumothorax pleural effusion congestive heart failure aortic dissection aneurysm ABG shows a pH of 7.368. pCO2 50.6 PaO2 128.5 HCO3 29.1. This is on 60% BiPAP. Patient's white count 11.8 hemoglobin 12.2 BMP with creatinine 0.73 lactic acid 1.3 normal LFTs except for alkaline phosphatase 141 troponin 8 proBNP 237 urinalysis with no overt infection. My independent interpretation of the chest x-ray is no definitive infiltrate pleural effusion. Please see radiologist read. EKG is sinus and nonischemic. A CTA of the chest was obtained given the patient's prior history of pulmonary embolism and unexplained hypoxia. This is read by radiology reviewed by myself. This is consistent with a retrocardiac left lower lobe infiltrate. Patient hasreceived DuoNeb. I do not hear significant wheezing on examination. She also received a dose of Levaquin after blood cultures were obtained. She received Tylenol for fever. Plan of care is going to be admission into hospital. She remains on BiPAP for comfort/hypoxemia. History & Record Review Discussion w/independent historian: Patient Additional record(s) reviewed:: Prior inpatient record, Prior ED visit and Priorlabs Lab Data Attestation: I reviewed the patient's lab results. Labs: Laboratory Results - last 24 hr 01/14/25 01/14/25 10:11 10:45 WBC 11.8 H RBC 4.28 Hgb 12.2 Hct 37.1 MCV 86.7 MCH 28.5 MCHC 32.9 RDW Std Deviation 48.4 H RDW Coeff of Naga 15.3 H Plt Count 259 MPV 10.5 Immature Gran % (Auto) 0.500 Neut % (Auto) 87.3 H Lymph % (Auto) 5.9 L Rabun % (Auto) 5.2 Eos % (Auto) 0.8 Baso % (Auto) 0.3 Absolute Neuts (auto) 10.3 H Absolute Lymphs (auto) 0.69 L Nucleated RBC % 0 PT 13.7 INR 1.0 APTT 26.3 Sodium 138 Potassium 4.7 Chloride 102 Carbon Dioxide 24.7 Anion Gap 11 BUN 13 Creatinine 0.73 Estim Creat Clear Calc 111.14 Est GFR (MDRD) Non-Af 91 BUN/Creatinine Ratio 17.1 Glucose 124 H Lactic Acid 1.3 Calcium 9.1 Total Bilirubin 0.36 AST 21 ALT 17 Alkaline Phosphatase 141 H Troponin T High Sens 8 NT pro BNP II 237 Total Protein 7.2 Albumin 3.8 Globulin 3.3 Albumin/Globulin Ratio 1.2 Urine Color Yellow Urine Clarity Clear Urine pH 5.0 Ur Specific [place] 1.020 Urine Protein 15 H Urine Glucose (UA) Normal Urine Ketones Negative Urine Occult Blood Negative Urine Nitrite Negative Urine Bilirubin Negative Urine Urobilinogen Normal Ur Leukocyte Esterase Negative Urine RBC 0-5 SEEN Urine WBC 0 SEEN Ur Squamous Epith Cells 0-5 SEEN Urine Bacteria 0 SEEN Hyaline Casts 5-10 SEEN Fine Granular Casts 0-5 SEEN Urine Mucus 1+ ABG Data ABG results: ABG 01/14/25 09:11 Specimen Type ART Sample Site R Radial pH 7.37 Bicarbonate Actual 29.1 H Total CO2 31 Base Excess 4 H O2 Saturation 99 O2 % 60.0 ABG pCO2 50.6 H ABG pO2 129 H [place] Test Positive Respiration Rate 12 O2 Delivery Device BiPAP Vent Mode BiLevel POC PEEP 8 Radiography Diagnostic Testing: Clinical Impression(s) from Imaging Studies Chest X-Ray 01/14/25 08:55 IMPRESSION: Mild degree of vascular congestion and CHF with bibasilar atelectasis. Reading Location: [facility] Chest CTA 01/14/25 11:05 IMPRESSION: 1. Limited sensitivity for peripheral pulmonary embolism on a technical basis. No central or definite pulmonary embolus identified. 2. Findings are compatible with multifocal LEFT lower lobe predominant pneumonia. Given nodular components, recommend CT chest in 3 months to document resolution. 3. Mild splenomegaly. 4. Additional description as above. Reading Location: [facility] EKG Initial EKG: Attestation: I personally reviewed and interpreted this EKG as follows: Comments: Normal sinus rhythm ventricular rate of 96 bpm Management Discussion w/another healthcare provider: Hospitalist (Dr Trinidad) Discharge Plan Dx/Rx/DC Orders Clinical Impression: Pneumonia, Acute hypoxemic respiratory failure Disposition Disposition: Acute Care Hospital [facility] What to do if you have Problems For any increased pain, shortness of breath, bleeding, nausea or vomiting, chestpain, or any unexpected problems, contact your Primary Care Provider. Call [facility] ([phone]) or report tothe closest Emergency Room. Call 911 if necessary. 01/14/25 1408 Cosigner Signature (if applicable): CC: Dr. Louis Penn MD ~ Signed [facility]04-16-2025 Evaluation note* Diagnosis Onset Date Resolution Status Admit Date Pneumonia acute January 14 11:59am Acute hypoxemic respiratory failure resolved January 14, 2025 11:59am Asthma chronic January 27 10:08am Morbid obesity chronic December 10:08am Sleep apnea chronic January 27, 10:08am [facility] Work Phone: [phone] 250-359904-16-2025 Radiology Diagnostic study note [facility] Imaging Services [address] [place] [address] [id number] CTA Chest W/WO Contrast MR#: [id number] Acct: [id number] Name: SIOBHAN HAAS Rep #: [id number] : 1960 F 64 From: Mckenzie Arce MD PCP: Dr. Louis Penn MD Status: REG E R Study:CTA Chest W/WO Contrast Date of Exam: 01/14/25 Exam# [id number] Ordering Dr: Nette Chappell DO PROCEDURE: CTA CHEST W/WO CONTRAST 01/14/2025 REASON FOR EXAM: PULMONARY EMBOLISM TECHNIQUE: CTA chest was performed with IV contrast. Coronal and sagittal reformats and MIP reconstructions were generated. PATIENT PREPARATION: Per protocol CONTRAST: Isovue 370 VOLUME: 100 mL One or more dose reduction techniques were used (e.g., Automated exposure control, adjustment of the mA and/or kV according to patient size, use of iterative reconstruction technique). RADIATION DOSE SUMMARY: CTDlvol: 11.87+ 15.83 mGy DLP: 568.35 mGycm COMPARISON: No prior CT or CTA chest FINDINGS: Exam limited by generalized soft tissue attenuation and mild motion. Additionally, opacification ofthe pulmonary arterial tree is borderline suboptimal with opacification of the main pulmonary artery to 245 Hounsfield units with progressively decreasing opacification of peripheral branches, limiting sensitivity for peripheral pulmonary embolus. Heart/pericardium: Trace aortic annular calcification. Aorta: Unremarkable. Pulmonary arteries: Normal in caliber. No central or definite pulmonary embolism is identified allowing for the above. Lymph nodes: Unremarkable. Lungs/pleura: Eventrated RIGHT hemidiaphragm. LEFT lower lobe irregular consolidation with hypoenhancement. Mild vaguely nodular airspace disease also present in the LEFT upper lobe and superior segment of the RIGHT lower lobe to a lesser degree. RIGHT basilar airspace disease is compatible with atelectasis/scarring.. Airways: Unremarkable. Chest wall: Unremarkable. Upper abdomen: Mild splenomegaly, 13.3 cm.. Musculoskeletal: Demineralization. Multilevel spondylosis. Spinal stimulator. Mild scoliosis. Severe degenerative changes of the LEFT shoulder. Mild/moderate degenerative changes of the RIGHT shoulder. Suspected old anteriorRIGHT rib fracture. CT/CTA Chest W/WO Contrast IMPRESSION: 1. Limited sensitivity for peripheral pulmonary embolism on a technical basis. No central or definite pulmonary embolus identified. 2. Findings are compatible with multifocal LEFT lower lobe predominant pneumonia. Given nodular components, recommend CT chest in 3 months to document resolution. 3. Mild splenomegaly. 4. Additional description as above. Reading Location: [id number] CC: Dr. Colt Chappell DO; Dr. Louis Penn MD ~ Vp Design: Signed [facility]04-16-2025 Radiology Diagnostic study note [facility] Imaging Services [address] [place] [address] Chest 1 View (Portable) MR#: [id number] Acct: [id number] Name: SIOBHAN HAAS Rep #: [id number] : 1960 F 64 From: Tye Cotton MD PCP: Dr. Louis Penn MD Status: REG E R Study:Chest 1 View (Portable) Date of Exam: 01/14/25 Exam# [id number] Ordering Dr: Nette Chappell DO PROCEDURE: CHEST 1 VIEW (PORTABLE) 01/14/2025 REASON FOR EXAM: DYSPNEA TECHNIQUE: Frontal view of the chest. COMPARISON: None FINDINGS: Hardware: EKG electrodes are seen. Heart: Borderline cardiomegaly. Lungs: Mild degree of bibasilar atelectasis with a superimposed vascular congestion and mild CHF. Bones: Degenerative changes are identified within the thoracic spine. Electrodes from a spinal cordstimulator device visualized. Other: Degenerative changes of both shoulder joints. RAD/Chest 1 View (Portable) IMPRESSION: Mild degree of vascular congestion and CHF with bibasilar atelectasis. Reading Location: [place] [address] CC: Dr. Colt Chappell DO; Dr. Louis Penn MD ~ Vp Design: Signed [facility]03-21-2025 Evaluation note* Diagnosis Onset Date Resolution Status Admit Date Lipoma of thigh acute November 12:55pm Lipoma of thigh acute November 12:39pm Acute hypoxemic respiratory failure acute January 14, 2025 11:59am Pneumonia acute January 14 11:59am [facility] Work Phone: [phone] 483-651706-27-2024 Telephone encounter Note* Telephone Encounter - Brigette Clements RN - 03/27/2024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 spacer FOOT SURGERY Right 04/24/2019 I&D;, external fixator FOOT SURGERY Left 08/04/2021 peroneus longus tenolysis - Dr Gamino HYSTERECTOMY 1997 INCISION AND DRAINAGE OF WOUND Left 11/21/2022 LLE INCONTINENCE SURGERY 11/15/2015 synthetic mid urethral sling,cystoscopy JOINT REPLACEMENT Left TKR KNEE DEBRIDEMENT Left 06/05/2023 DEBRIDEMENT SKIN, SUBCUTANEOUS TISSUE/MUSCLE/BONE - Left LIPOMA RESECTION Right 2014 shoulder ORTHOPEDIC SURGERY [...] Right 05/06/2019 Right Below Knee Amputation (CPT 71427), #2 Excisional debridement right iliac crest (wound 7 cm length, 3 cm width, 7 cm depth) TONSILLECTOMY (HISTORICAL) TOTAL KNEE ARTHROPLASTY Left 2012 ARTHROSCOPY FIRST AND KNEE REPLACED WISDOM TOOTH EXTRACTION WOUND DEBRIDEMENT Left 10/28/2021 irrigation and debridment LLE Social History Socioeconomic History Marital status: Spouse name: Not on file Number of children: Not on file Years of education: Not on file Highest education level: Not on file Occupational History Not on file Tobacco Use Smoking status: Former Packs/day: 0.15 Years: 5.00 Additional pack years: 0.00 Total pack years: 0.75 Types: Cigarettes Quit date: 10/01/1981 Years since quittin.0 Passive exposure: Past Smokeless tobacco: Never Vaping Use Vaping Use: Never used Substance and Sexual Activity Alcohol use: Not Currently Drug use: No Sexual activity: Yes Partners: Male Other Topics Concern Not on file Social History Narrative Has been in rehab facility in [place] Lives alone, son close Friends help Social Determinants of Health Financial Resource Strain: Low Risk (06/27/2023) Overall Financial Resource Strain (CARDIA) Difficulty of Paying Living Expenses: Not hard at all Food Insecurity: Unknown (06/27/2023) Hunger Vital Sign Worried About Running Out of Food in the Last Year: Not on file Ran Out of Food in the Last Year: Never true Transportation Needs: No Transportation Needs (06/27/2023) PRAPARE - Transportation Lack of Transportation (Medical): No Lack of Transportation (Non-Medical): No Physical Activity: Inactive (06/27/2023) Exercise Vital Sign Days of Exercise per Week: 0 days Minutes of Exercise per Session: 0 min Stress: No Stress Concern Present (06/27/2023) [place] [employer] - Occupational Stress Questionnaire Feeling of Stress : Not at all Social Connections: Moderately Isolated (06/27/2023) Social Connection and Isolation Panel [NHANES] Frequency of Communication with Friends and Family: More than three times a week Frequency of Social Gatherings with Friends and Family: Once a week Attends Rastafarian Services: More than 4 times per year Active Member of Clubs or Organizations: No Attends Club or Organization Meetings: Never Marital Status: Intimate Partner Violence: Not At Risk (06/27/2023) Humiliation, Afraid, Rape, and Kick questionnaire Fear of Current or Ex-Partner: No Emotionally Abused: No Physically Abused: No Sexually Abused: No Housing Stability: Low Risk (06/27/2023) Housing Stability Vital Sign Unable to Pay for Housing in the Last Year: No Number of Places Lived in the Last Year: 1 Unstable Housing in the Last Year: No Family History Problem Relation Name Age of Onset Pancreatic cancer Mother Pancreatic cancer Father Review of Systems: Constitutional: Negative for chills, fatigue and fever. Respiratory: Negative for chest tightness, shortness of breath and wheezing. Cardiovascular: Negative for chest pain and palpitations. Gastrointestinal: Negative for abdominal distention, abdominal pain, constipation and vomiting. Musculoskeletal: Positive for joint pain Skin: Negative for pallor and rash. Allergic/Immunologic: Negative for environmental allergies. Neurological: Negative for dizziness, speech difficulty, light-headedness and headaches. Psychiatric/Behavioral: Negative for confusion and sleep disturbance. The patient is not nervous/anxious. Physical Exam: BP 90/63 Pulse 80 Ht 5' 7 (1.702 m) Wt (!) 338 lb (153 kg) BMI 52.94 kg/m MUSCULOSKELETAL: Cervical Exam: Neck range of motion: normal range of motion Spurlings: Negative when looking to the right and left bilateral Shoulder Inspection of the shoulder reveals no obvious deformity or swelling, no obvious skin lesion, erythema, or discoloration. Palpation: Generalized pain with palpation over the anterior shoulder and lateral acromion Shoulder ROM: RIGHT LEFT Flexion AROM 140 PROM 140 AROM 60 PROM 60 Abduction AROM 140 PROM Same AROM 45 PROM Same External Rotation: 45 15 Sensation: Sensation intact C5-T1 Pulse: Palpable radial pulse. Reflexes: 2+ biceps and brachioradialis reflexes. Motor: RIGHT LEFT Supraspinatus Mild weakness Mild weakness Infraspinatus Mild weakness Subtle weakness limited by pain Subscapularis Mild weakness Mild weakness Distal motor exam including elbow flexion/extension, wrist flexion/extension, thumb extension, finger abduction and A-OK sign is intact without deficits. Special Tests (as indicated): Jai: No Impingement: Neer/Contreras tests: Yes Bear Hug Test: No Belly Press: Yes Pain over Bicipital Groove: Yes Biceps pain with Speed's test: Yes Yergason's test: No Pain over AC Joint: No AC Joint Instability: No Cross Body Adduction: No [place]'s Test: No Shoulder Instability: no specific positive exam findings There is not evidence of global laxity. Other than those listed above, there were no further signs of shoulder instability or labral injury The contralateral shoulder is negative for any pertinent positives and was examined for a baseline to compare to the injured side. Ipsilateral elbow exam WNL. Imaging Shoulder Xrays: 12/03/22 (left shoulder) & 10/12/2023 (right shoulder) Plain films were taken today and reviewed in office and interpreted by me right Shoulder 4V including AP, grashey, scapular Y, and axillary reveal significant narrowingin the glenohumeral and in the AC joints with associated sclerosis and osteophyte formation in affected compartments noted above. No evidence of fracture or other osseous abnormality. No evidence of obvious malignant bony lesions. These films were independently reviewed, interpreted by me and discussed with the patient Shoulder MRI: none Other Diagnostic Testing: none IMPRESSION: Encounter Diagnosis Name Primary? Left shoulder pain PROCEDURE: None PLAN: The history, exam, and imaging is consistent with bilateral GH OA. I discussed with Siobhan the natural history, expected outcome, and risks/benefits of both operative and nonoperative management of her particular diagnosis relative to her age, activity level, previous treatment, and physical exam. Siobhan had some excellent questions, all of which were answered to her satisfaction. The patient will follow up with Dr. Titus for consult on Total Shoulder Replacement on her left shoulder. Follow-up: Siobhan will followup with me on an as needed basis. She knows to call the office with any questions or concerns in the interim. Future Imaging: NONE Bj Barroso MD Orthopaedic Sports Medicine [facility] Department of Orthopaedics and Sports Medicine 10/12/2023 at 3:47 PM (Please note that portions of this note may have been completed with a voice recognition program. Efforts were made to edit the dictations but occasionally words are mis-transcribed.) This encounter was considered moderate MDM due to 1 chronic illness with exacerbation, progression,or side effects of treatment. I independently examined radiographs and if available, advanced imaging to help with decision making. There was associated moderate risk of treatment due to decision referral . This encounter was considered moderate MDM due to meeting two of the three above criteria from the categories of problems addressed, amount and/or complexity, and risk. documented in this [facility]11-03-2023 History of Present illness Narrative* Rusty Mercado MD - 08/03/2023 1:00 PM EDT [facility] [address] [place] [id number] Dept: [phone] Dept Siobhan Haas 1960 [id number] 08/03/2023 HISTORY OF PRESENT ILLNESS: Siobhan is here for her 8 week(s) postoperative visit s/p Incision and drainage abscess left thigh (Wound dimensions: Length medial to lateral: 6 cm, Width anterior to posterior: 2 cm, Depth: 3 cm, #2 placement of VAC dressing left thigh wound less than 50 cm Siobhan reports that her pain has been minimal Siobhan reports that her swelling has decreased since the last visit Siobhan had been instructed to be nonweight bearing on the left lower extremity. Siobhan denies fevers and chills and has not had calf pain or shortness of breath In general Siobhan feels that she is doing better than the her last visit Other issues or concerns that Siobhan would like addressed at this visit: she has no other issues or concerns to discuss 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 ([facility]) 07/27/2020 Asthma Cellulitis Constipation Depression Difficult intubation 12/04/2022 Fibromyalgia GERD (gastroesophageal reflux disease) History of transfusion Hx of right BKA ([facility]) ([facility]) Hypertension Morbidly obese ([facility]) 02/03/2019 BMI 50.52 On home O2 FAY treated with BiPAP Osteoarthritis Osteomyelitis of right foot ([facility]) SCHEDULED FOR THE SURGERY ON 02/11/2019 Pulmonary embolism ([facility]) Seasonal allergies Shortness of breath URSULA (stress urinary incontinence, female) Vertigo Allergies Allergen Reactions Amlodipine Swelling Cefepime Itching Clonazepam Other reaction(s): Other (See Comments) made me sleep & cry Ketamine Lisinopril Swelling Prednisone Other reaction(s): CVA like symptoms Hydromorphone Rash Vancomycin Rash PHYSICAL EXAM: This is an age appropriate appearing female who is alert and oriented x 3. The patient appears wellnourished. The patient is able to verbalize normally and seems to have a good understanding of her situation. Normocephalic, atraumatic Respiratory: No shortness of breath The left Above knee amputation is examined. Skin is warm and dry Capillary refill in the AKA is less than 3 seconds. Siobhan is able to actively move the hip The incision(s) is/are healed and benign Tenderness is not present on exam Other findings on exam: None Ambulation: Siobhan was evaluated in a wheelchair/gurney today and I did not have her stand or walktoday RADIOGRAPHIC INTERPRETATION: No xrays were obtained or reviewed REVIEW OF RELATED PREVIOUS DOCUMENTATION: No documents related to the current problem(s) were reviewed or no documents were available for review. LABORATORY RESULT INTERPRETATION: No labs were reviewed/No labs available for review DIAGNOSIS: Diagnosis Plan 1. 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 Siobhan is doing well at this point and I think it is reasonable for her to start to resume more normal activities. I explained to Siobhan that as she begins to resume her normal activities she should start slowly and gradually in order to avoid injury and/or pain. If Siobhan has any problems or setbacks as she tries to resume her normal activities she is free to call me to discuss. If Siobhan has any problems or concerns in the future she will call the office. Follow up if symptoms worsen or fail to improve. Electronically signed by Rusty Mercado MD [facility] Department of Orthopedic surgery 08/03/2023 3:57 PM Voice recognition was used for portions of this note and although it was reviewed prior to signing some incorrect words or phrases could be present. documented in this [facility]10-23-2023 Discharge summary Author Kelsey Lima [facility] July 23, 2023 11:37am Note Date/Time July 23, 2023 1 1:37am [facility] Medical Records Department [address] [place] [id number] Discharge Summary 07/23/23 1136 MR#: [id number] Acct: [id number] Name: SIOBHAN HAAS Rep #:[id number] : 1960 62 From: Kelsey Lima MD PCP: GINO Vasques Sta tus:ADM IN Location: [place] [id number] Providers Date of Admission: 07/20/23 Date of Discharge: 07/23/23 Primary Care Physician: GINO Vasques Consultations 07/20/23 23:48 Consult: Onc/Wound/sleeve tailor Routine Comment: Reason for Consult:: Left AKA stump ulcer. Reason For Visit: Asthma EXA Diagnosis Discharge Diagnosis (1) Asthma exacerbation: Status: Acute Code(s): J45.901 - Unspecified asthma with (acute) exacerbation Qualifiers: Asthma severity: unspecified severity Asthma persistence: unspecified Qualified Code(s): J45.901 - Unspecified asthma with (acute) exacerbation Plan #Exacerbation of asthma #FAY #Morbid obesity #HTN #Depression Medications at Discharge Home Medications potassium chloride 20 mEq tablet,extended release(part/cryst) 40 meq PO DAILY supplement 11/01/18 albuterol sulfate 90 mcg/actuation aerosol inhaler 2 puff inhalation Q6H PRN shortness of breath or wheezing #8.5 grams 05/11/21 valsartan 320 mg tablet 320 mg PO DAILY heart 05/19/21 omeprazole 40 mg capsule,delayed release 40 mg PO DAILY gerd 06/15/21 pramipexole 1.5 mg tablet 3 mg PO QHS rls 06/15/21 amitriptyline 100 mg tablet 100 mg PO QHS PAIN AND SLEEP 08/31/22 cholecalciferol (vitamin D3) 1,250 mcg (50,000 unit) capsule 1,250 mcg PO MO SUPPLEMENT 08/31/22 apixaban 5 mg tablet 5 mg PO BID blood thinner 10/16/22 budesonide-formoterol HFA 160 mcg-4.5 mcg/actuation aerosol inhaler (Symbicort) 2 puff inhalation BID asthma 10/16/22 escitalopram oxalate 20 mg tablet 20 mg PO DAILY depression 10/16/22 metoprolol succinate 50 mg tablet,extended release 24 hr 50 mg PO DAILY blood pressure 10/16/22 montelukast 10 mg tablet 10 mg PO DAILY asthma 10/16/22 alprazolam 0.5 mg tablet 0.5 mg PO DAILY PRN anxiety 07/20/23 cyclobenzaprine 10 mg tablet 10 mg PO QHS muscle spasm 07/20/23 albuterol sulfate 2.5 mg/3 mL (0.083 %) solution for nebulization 1.25 mg inhalation Q4H PRN sob/wheezing 07/21/23 atorvastatin 10 mg tablet 10 mg PO QHS cholesterol 07/21/23 docusate sodium 100 mg capsule (Colace) 100 mg PO DAILY constipation 07/21/23 fluticasone 250 mcg-salmeterol 50 mcg/dose blistr powdr for inhalation (Advair Diskus) 1 inh inhalation BID copd 07/21/23 fluticasone propionate 50 mcg/actuation nasal spray,suspension (Flonase Allergy Relief) 1 spray intranasal DAILY allergies 07/21/23 gabapentin 300 mg capsule 300 mg PO BID phantom pain 07/21/23 loratadine 10 mg tablet (Allergy Relief (loratadine)) 10 mg PO DAILY allergies 07/21/23 melatonin 5 mg tablet 5 mg PO QHS sleep 07/21/23 multivitamin (Daily Multi-Vitamin tablet) 1 tab PO DAILY supplement 07/21/23 prednisone 20 mg tablet 40 mg (2 x 20 mg) PO DAILY 5 days #10 tabs 07/23/23 Hospital Course Summary of Care Provided Minutes Spent on Discharge: 31 Hospital Course: 62-year-old female history of sleep apnea, anxiety, bilateral lower extremity amputation, asthma, PE presented to [facility] 07/20/2023 from SNF for shortness of breath and chest tightness. Was given aspirin and nitro prior to coming to ED however on presentation it appears patient was in a mild asthma exacerbation. She is on IV steroids and DuoNebs and Zithromax and improved significantly overnight not requiring oxygen. Patient was ready for DCthe following day however given she came from SNF pre-CERT had to be reobtained. Patient discharged back in stable condition on 5 further days of prednisone. Physical Exam Narrative General: Alert, oriented, no apparent distress HEENT: Atraumatic, normocephalic Eyes: Anicteric, normal conjunctiva, extraocular movements grossly intact Neck: Supple Respiratory: Clear to auscultation bilaterally, normal respiratory effort Cardiovascular: Regular rate and rhythm GI: Soft, nontender, nondistended Extremities: No edema Musculoskeletal: Moving all extremities Neuro: No overt focal neurological deficits Skin: No rashes appreciated Psych: Cooperative Weight / BMI Weight Weight: 153.2 kg Body Mass Index (BMI) 54.5 ABG / Lab / Microbiology Data 07/20/23 16:42 07/20/23 16:42 Microbiology: Microbiology 07/21/23 08:45 Sputum, Expectorated/Coughed Gram Stain - Final 07/21/23 08:45 Sputum, Expectorated/Coughed Respiratory Culture - Final 07/20/23 21:45 Mucosa - Nasopharyngeal Respiratory Panel (PCR) - Final 07/20/23 20:56 Nasal Secretion SARS-CoV-2 & FLU Antigen (Rapid) - Final D/C Instructions Discharge Diet: Carb Control Diet Meaningful Use Info Meaningful Use Diagnoses (Choose all that apply): None applicable Discharge Plan Admission Admit Date/Time: 07/20/23 20:34 Primary Reason for Your Visit: Shortness of breath Attending Provider: Kelsey Lima Primary Care Provider: Oj Maddox [employer] REPAIRER Consulting Providers: Laron Campoverde; Jon Brito Instructions Patient Instructions: Asthma Discharge Orders/Prescriptions Prescriptions: New prednisone 20 mg tablet 40 mg PO DAILY 5 Days Qty: 10 0RF Continued albuterol sulfate 90 mcg/actuation HFA aerosol inhaler 2 puff inhalation Q6H PRN (Reason: shortness of breath or wheezing) Qty: 8.5 6RF Rx Instructions: administer with spacer potassium chloride 20 MEQ tablet 40 meq PO DAILY valsartan 320 mg tablet 320 mg PO DAILY omeprazole 40 mg capsule,delayed release(DR/EC) 40 mg PO DAILY pramipexole 1.5 mg tablet 3 mg PO QHS amitriptyline 100 mg tablet 100 mg PO QHS cholecalciferol (vitamin D3) 1,250 mcg (50,000 unit) capsule 1,250 mcg PO MO Patient Comments: TAKE 1 CAPSULE BY MOUTH EVERY WEEK metoprolol succinate 50 mg tablet extended release 24 hr 50 mg PO DAILY Patient Comments: TAKE 1 TABLET BY MOUTH EVERY DAY montelukast 10 mg Tablet 10 mg PO DAILY escitalopram oxalate 20 mg tablet 20 mg PO DAILY Patient Comments: TAKE 1 TABLET BY MOUTH ONCE DAILY FOR 30 DAYS. STOP CELEXA. budesonide-formoterol [Symbicort] 160-4.5 mcg/actuation HFA aerosol inhaler 2 puff inhalation BID Rx Instructions: administer with spacer, rinse mouth after each use apixaban 5 mg tablet 5 mg PO BID cyclobenzaprine 10 MG tablet 10 mg PO QHS Patient Comments: muscle relaxer alprazolam 0.5 mg tablet 0.5 mg PO DAILY PRN (Reason: anxiety) albuterol sulfate 2.5 mg /3 mL (0.083 %) solution for nebulization 1.25 mg inhalation Q4H PRN (Reason: sob/wheezing) atorvastatin 10 mg tablet 10 mg PO QHS docusate sodium [Colace] 100 mg capsule 100 mg PO DAILY fluticasone propionate [Flonase Allergy Relief] 50 mcg/actuation spray,suspension 1 spray intranasal DAILY Rx Instructions: administer into each nostril fluticasone propion-salmeterol [Advair Diskus] 250-50 mcg/dose blister with device 1 inh inhalation BID gabapentin 300 mg capsule 300 mg PO BID loratadine [Allergy Relief (loratadine)] 10 mg tablet 10 mg PO DAILY melatonin 5 mg tablet 5 mg PO QHS multivitamin [Daily Multi-Vitamin] Tablet 1 tab PO DAILY Referrals / Follow Up: Oj Maddox NP, [employer] PLANT REPAIRER-C [Primary Care Provider] - Within 1 Week Disposition Disposition (needs filled in before D/C Order can be placed): Intermediate Facility Charges/Coding Visit Charges Inpatient E&M: 56965 Disch Hosp >30min 07/23/23 1137 <Electronically signed by Kelsey Lima MD> Cosigner Signature (if applicable): CC: GINO Maddox; Dr. Kelsey Lima MD~ Signed [facility] Work Phone: 1(114) 430-411310-23-2023 Discharge summary Author Kelsey Lima [facility] July 23, 2023 11:36am Note Date/Time July 23, 2023 1 1:35am [facility] Medical Records Department [address] [place] [address] Transfer to [facility] MR#: [id number] Acct: [id number] Name: SIOBHAN HAAS Rep #:[id number] : 1960 62 From: Kelsey Lima MD PCP: GINO Vasques Sta tus:ADM IN Certification of patient admission REQUIRED AT TIME OF ADMISSION. I CERTIFY THAT POST-HOSPITAL F SERVICES ARE REQUIRED TO BE GIVEN ON AN IN-PATIENT BASIS BECAUSE OF THE ABOVE NAMED PATIENT'S NEED FOR SNF CARE ON A CONTINUING BASIS FOR THE CONDITION(S) FOR WHICH HE/SHE WAS RECEIVING IN-PATIENT HOSPITAL SERVICES PRIOR TO HIS/HER TRANSFER TO THE [facility]. 07/23/23 1136<Electronically signed by Kelsey Lima MD> Diet Diet Order/Speech Therapy: 07/21/23 10:51 Diet: Consistent Carb - Calorie Controlled Food consistency:: Regular Liquid Consistency:: Regular/Thin Dietary Modifications:: Cardiac / Heart Healthy How many daily calories?: 1600 calorie Routine Orders/Code Status Suppository Type: Dulcolax 10mg Suppository Frequency: Daily PRN Code Status: Full Code Wound(s) L. extremity: Wound Type: Open Surgical Wound Chi. lower extremities: Wound Type: Surgical Incision left lower leg - distal stump: Wound Type: Surgical Incision Dressing Change: Wet to Dry Dressing Therapies Physical Therapy: Eval and Treat Occupational Therapy: Eval and Treat Problem/Diagnosis (1) Asthma exacerbation: Status: Acute Code(s): J45.901 - Unspecified asthma with (acute) exacerbation Plan #Exacerbation of asthma #FAY #Morbid obesity #HTN #Depression 62-year-old female history of sleep apnea, anxiety, bilateral lower extremity amputation, asthma, PE presented to [facility] 07/20/2023 from SNF for shortness of breath and chest tightness. Was given aspirin and nitro prior to coming to ED however on presentation it appears patient was in a mild asthma exacerbation. She is on IV steroids and DuoNebs and Zithromax and improved significantly overnight not requiring oxygen. Patient was ready for DCthe following day however given she came from SNF pre-CERT had to be reobtained. Patient discharged back in stable condition on 5 further days of prednisone. Allergies/Procedures Done in Hospital Allergies losartan [From Cozaar] Allergy (Mild, Verified 07/22/23 20:15) Rash pt states she had a reaction previously to this med and she forgot to have it added to her her allergy list. vancomycin Allergy (Verified 11/06/22 18:33) Rash amlodipine Adverse Reaction (Verified 11/06/22 18:33) Swelling Type of Care/Length of Stay Estimated LOS: More Than 30 Days Type of Care Needed: Intermediate Rehab Potential: Fair Prognosis: Fair Additional Orders/Day of Discharge Day of Discharge: 07/23/23 Dietary and Speech Recommendations Dietitian Recommendations/Changes: Will change diet to 1600 calorie/consistent carbohydrate; cardiac diet. Bandar as needed. Discharge Plan Admission Admit Date/Time: 07/20/23 20:34 Primary Reason for Your Visit: Shortness of breath Attending Provider: Kelsey Lima Primary Care Provider: Oj Maddox PREPARATION PLANT REPAIRER Consulting Providers: Laron Campoverde; Jon Brito Instructions Patient Instructions: Asthma Discharge Orders/Prescriptions Prescriptions: New prednisone 20 mg tablet 40 mg PO DAILY 5 Days Qty: 10 0RF Continued albuterol sulfate 90 mcg/actuation HFA aerosol inhaler 2 puff inhalation Q6H PRN (Reason: shortness of breath or wheezing) Qty: 8.5 6RF Rx Instructions: administer with spacer potassium chloride 20 MEQ tablet 40 meq PO DAILY valsartan 320 mg tablet 320 mg PO DAILY omeprazole 40 mg capsule,delayed release(DR/EC) 40 mg PO DAILY pramipexole 1.5 mg tablet 3 mg PO QHS amitriptyline 100 mg tablet 100 mg PO QHS cholecalciferol (vitamin D3) 1,250 mcg (50,000 unit) capsule 1,250 mcg PO MO Patient Comments: TAKE 1 CAPSULE BY MOUTH EVERY WEEK metoprolol succinate 50 mg tablet extended release 24 hr 50 mg PO DAILY Patient Comments: TAKE 1 TABLET BY MOUTH EVERY DAY montelukast 10 mg Tablet 10 mg PO DAILY escitalopram oxalate 20 mg tablet 20 mg PO DAILY Patient Comments: TAKE 1 TABLET BY MOUTH ONCE DAILY FOR 30 DAYS. STOP CELEXA. budesonide-formoterol [Symbicort] 160-4.5 mcg/actuation HFA aerosol inhaler 2 puff inhalation BID Rx Instructions: administer with spacer, rinse mouth after each use apixaban 5 mg tablet 5 mg PO BID cyclobenzaprine 10 MG tablet 10 mg PO QHS Patient Comments: muscle relaxer alprazolam 0.5 mg tablet 0.5 mg PO DAILY PRN (Reason: anxiety) albuterol sulfate 2.5 mg /3 mL (0.083 %) solution for nebulization 1.25 mg inhalation Q4H PRN (Reason: sob/wheezing) atorvastatin 10 mg tablet 10 mg PO QHS docusate sodium [Colace] 100 mg capsule 100 mg PO DAILY fluticasone propionate [Flonase Allergy Relief] 50 mcg/actuation spray,suspension 1 spray intranasal DAILY Rx Instructions: administer into each nostril fluticasone propion-salmeterol [Advair Diskus] 250-50 mcg/dose blister with device 1 inh inhalation BID gabapentin 300 mg capsule 300 mg PO BID loratadine [Allergy Relief (loratadine)] 10 mg tablet 10 mg PO DAILY melatonin 5 mg tablet 5 mg PO QHS multivitamin [Daily Multi-Vitamin] Tablet 1 tab PO DAILY Referrals / Follow Up: Oj Maddox PREPARATION PLANT REPAIRER, PREPARATION PLANT REPAIRER-C [Primary Care Provider] - Within 1 Week Disposition Disposition (needs filled in before D/C Order can be placed): Intermediate Facility (1) Asthma exacerbation Qualifiers: Asthma severity: unspecified severity Asthma persistence: unspecified Qualified Code(s): J45.901 - Unspecified asthma with (acute) exacerbation 07/23/23 1136 <Electronically signed by Kelsey Lima MD> Cosigner Signature (if applicable): CC: GINO Maddox; Dr. Jon Brito DO; Dr. Laron Campoverde MD ~ [facility] Work Phone: 1(323) 102-602910-22-2023 Progress note Author [facility] July 22, 2023 8:47pm Note Date/Time July 22, 2023 8 :47pm [facility] Medical Records Department [address] [place] [address] Progress Note - Hospitalist 07/22/232046 MR#: [id number] Acct: [id number] Name: SIOBHAN HAAS Rep #:[id number] : 1960 62 From: Phylicia Hurtado MD PCP: GINO Vasques tus:ADM IN Location: [place] [address] Hospitalist Note Following Cozaar administration patient did have onset of rash therefore this was discontinued and Benadryl IV x1 administered. Listed as allergy now. 07/22/232046 <Electronically signed by Phylicia Hurtado MD> Cosigner Signature (if applicable): CC: ~ Signed [facility] Work Phone: 1(164) 638-801510-22-2023 Progress note Author [facility] July 22, 2023 8:28am Note Date/Time July 22, 2023 8 :29am [facility] Medical Records Department [address] [place] [address] Progress Note - Hospitalist 07/22/2324 MR#: [id number] Acct: [id number] Name: SIOBHAN HAAS Rep #:[id number] : 1960 62 From: Jon Brito DO PCP: GINO Vasques Sta tus:ADM IN Location: [place] [address] Reason for Visit Reason for Visit: Diagnoses Unspecified asthma with (acute) exacerbation (07/20/23) Subjective Subjective Patient was seen and examined today, she remains on room air at this time. Patient has no respiratory distress, she complains of slight cough. Objective Data Objective Data Vital Signs: Vital Signs Temp Pulse Resp BP Pulse Ox O2 Del Method 97.7 F L 89 18 106/66 93 Room Air 07/22/23 03:40 07/22/23 03:40 07/22/23 03:40 07/22/23 03:40 07/22/23 03:40 07/22/23 03:40 Oxygen Delivery Method Room Air Weight: 153.2 kg Body Mass Index (BMI) 54.5 Intake & Output: Intake and Output for Last 24 Hours 07/20/23 07/21/23 07/22/23 23:59 23:59 23:59 Intake Total 1595 / 1595 200 / 200 Output Total 1999 / 1999 350 / 350 Balance -405 / -405 -150 / -150 Lab / Micro Data 07/20/23 16:42 07/20/23 16:42 Labs: Laboratory Results - last 24 hr 07/21/23 06:52: Hemoglobin A1c 5.7 H Micro: Microbiology 07/20/23 21:45 Mucosa - Nasopharyngeal Respiratory Panel (PCR) - Final 07/20/23 20:56 Nasal Secretion SARS-CoV-2 & FLU Antigen (Rapid) - Final Physical Exam Narrative alert, oriented x3 and no apparent distress Constitutional Narrative: Patient has morbid obesity General Appearance: cooperative, well kempt and well developed Orientation / Consciousness: awake, oriented to person, oriented to place and oriented to time HEENT normocephalic, head/scalp atraumatic and moist oral mucous membranes Eyes PERRL, EOMs intact bilaterally and conjunctivae normal Neck supple, no JVD, thyroid normal and no carotid bruits General: trachea midline Resp normal respiratory effort, no retractions, no use of accessory muscles and clearto auscultation bilaterally Auscultation: Negative for rales, rhonchi or wheezes Cardio regular rate, regular rhythm, no murmurs, no rub and no gallops GI normal to inspection, nondistended, normoactive bowel sounds, soft to palpation,non-tender and non-distended Extremity Extremity Narrative: Patient has bilateral lower extremity amputations-right below the knee amputation, left [id number] amputation Skin no rashes or lesions noted General Skin Exam: no breakdown Neuro oriented x3, CN's II-XII intact bilaterally, no focal motor deficits and no sensory deficits noted Sensorium / Orientation: awake, alert, oriented to person, oriented to place andoriented to time Speech: speech normal Psych affect normal Assessment & Plan Assessment/Plan (1) Asthma exacerbation: QUALIFIERS: Asthma severity: unspecified severity Asthma persistence: unspecified Qualified Code(s): J45.901 - Unspecified asthma with (acute) exacerbation PLAN: Plan 1. Exacerbation of asthma-patient remains on IV Solu-Medrol and aerosol treatments at this time-I have decided to decrease the Solu-Medrol to 20 mg every 8 hours, she does require any supplemental oxygen at this time. #2 obstructive sleep apnea-I have asked respiratory therapy to confirm whether the patient uses BiPAP or CPAP currently, if she does use CPAP at night this will need to be set up here-I had this discussion with respiratory yesterday #3 morbid obesity-complicates care, medical course, recovery, and prognosis #4 essential hypertension-patient is on valsartan and metoprolol currently #5 chronic depression-patient is on Lexapro and amitriptyline #6 chest pain secondary to exacerbation of asthma-patient's troponins were unremarkable Total clinical time spent by myself addressing the patient's medical issues, reviewing all of her data, and collaborating with patient's care team: 25 minutes Charges/Coding Visit Charges Inpatient E&M: 12252 Subs Hosp L1 07/22/23 0828 <Electronically signed by Jon Brito DO> Cosigner Signature (if applicable): CC: ~ Signed [facility] Work Phone: 1(982) 849-989010-21-2023 History and physical note Author Laron Campoverde [facility] July 21, 2023 8:18pm Note Date/Time July 20, 2023 8 :15pm [facility] Medical Records Department [address] [place] [address] H&P Exam - Hospitalist 07/20/232011 MR#: [id number] Acct: [id number] Name: SIOBHAN HAAS Rep #:[id number] : 1960 62 From: Laron Cochran PCP: Oj Maddox, PREPARATION PLANT REPAIRER-C Sta tus:ADM IN Location: [facility] [id number] HPI - General General Date of Admission: 07/20/23 Date of Service: 07/20/23 Chief Complaint: Shortness of breath and chest tightness, came from my review ofthe study. HPI Narrative SIOBHAN HAAS, is a 62 F who lives in [place] in [place] came to ED for chesttightness shortness of breath that started about 1400 hrs. today. 3 nitro was given at longterm and 325 mg aspirin before arrival. Patient started havingshortness of breath and chest tightness today, sudden onset as mentioned above. She denies fever chills, sore throat headache, nausea or vomiting or other prodromal symptoms. Patient states she has history of asthma/COPD for long time. She has not smoked for long time for about 40 to 45 years, probably triedsmoking in the young days. She is also bilateral amputee but does not have a history of diabetes mellitus. Labs reviewed in BMP normal limit. CBC shows mild anemia of chronic disease. Twelve-lead EKG normal sinus rhythm 85 bpm, QTc 442 ms. Portable single AP viewchest x-ray individually reviewed and lungs look clear with no acute radiographic abnormality. [facility] Medical History (Updated 07/20/23 @ 20:[address] 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 No fever. HEENT: Reports systems reviewed and no addt'l complaints, except as documented Respiratory/Chest: Mild bilateral audible wheezing. Rest as described in HPI. CVS: Denies history of coronary artery disease or cardiac stent or angina. Gastrointestinal: Denies coffee ground emesis, hematemesis or vomiting Genitourinary: Denies burning urination or new urinary tract symptoms Musculoskeletal: Bilateral amputee. Left above-knee due to necrotizing fasciitis. Right below-knee due to infection/osteomyelitis which required multiple surgery and higher level of amputation. No acute injury. Neurologic: Denies seizure-like symptoms. skin: dressing present on the left AKA stump. Endocrinology: Reports systems reviewed and no addt'l complaints, except as documented Hematologic/Lymphatic: Reports systems reviewed and no addt'l complaints, exceptas documented Rest 14 ROS are negative except as mentioned in HPI Vital Signs Vital Signs Vital Signs: 07/20/23 16:38 07/20/23 16:41 07/20/23 16:49 Temperature 98.5 F Temperature Source Temporal Pulse Rate 88 Respiratory Rate 22 H Respiratory Effort Short of Breath Respiratory Pattern Blood Pressure 139/73 H Blood Pressure Mean 95 Pulse Ox 95 97 Oxygen Delivery Method Room Air Room Air 07/20/23 17:39 07/20/23 17:39 07/20/23 19:00 Temperature Temperature Source Pulse Rate 88 82 Respiratory Rate 24 H 18 Respiratory Effort Respiratory Pattern Normal Blood Pressure 112/75 Blood Pressure Mean 87 Pulse Ox 93 94 Oxygen Delivery Method Room Air Room Air 07/20/23 19:27 Temperature Temperature Source Pulse Rate 83 Respiratory Rate 18 Respiratory Effort Respiratory Pattern Blood Pressure 98/62 Blood Pressure Mean 74 Pulse Ox 94 Oxygen Delivery Method Weight Weight: 160 lb 3.2 oz Body Mass Index (BMI) 25.8 Physical Exam Narrative General: Alert, Oriented x3, Cooperative. BMI 25.9 kg/m?. HEENT: Atraumatic, PERRLA, EOMI, Normocephalic Oral: Oral mucosa dry. No Gingival or Mucosal Lesions/ Ulcerations Neck: Supple, No JVD, Negative Carotid Bruits Lungs: Air entry diminished in bilateral lung bases. Bilateral wheezing. MildDOE. Cardiovascular: Regular rate, Regular Rhythm, Normal S1, Normal S2, No murmurs Abdomen: Bowel Sounds Present, Soft, Non Tender, Non-Distended : No renal angle tenderness. No suprapubic tenderness. Extremities: No edema, Capillary Refill Less than 3 Seconds Skin: Dressing on left AKA stump. Musculoskeletal: Bilateral amputee, right BKA and left AKA. Reflex sympathetic dystrophy. No acute tenderness or injury. Neurological: Cranial nerves II-XII grossly intact, DTR 2+/4. No acute focal neurological deficit. Psych/Mental Status: Normal Affect, Appropriate. Results Lab / Micro Data 07/20/23 16:42 07/20/23 16:42 Labs: Laboratory Results - last 24 hr 07/20/23 16:42: WBC 7.4, RBC 4.39, Hgb 11.3 L, Hct 36.8 L, MCV 83.8, MCH 25.7 L,MCHC 30.7 L, RDW Std Deviation 46.1 H, RDW Coeff of Naga 15.2 H, Plt Count 294, MPV 11.5, Immature Gran % (Auto) 0.400, Neut % (Auto) 60.6, Lymph % (Auto) 25.9,Rabun % (Auto) 10.1 H, Eos % (Auto) 2.3, Baso % (Auto) 0.7, Absolute Neuts (auto)4.5, Absolute Lymphs (auto) 1.92, Nucleated RBC % 0, Sodium 141, Potassium 4.0, Chloride 107, Carbon Dioxide 28.0, Anion Gap 6, BUN 18, Creatinine 0.76, Estim Creat Clear Calc 70.93, Est GFR (MDRD) Af Amer 99, Est GFR (MDRD) Non-Af 82, BUN/Creatinine Ratio 23.7 H, Glucose 116 H, Calcium 8.9, Troponin I High Sens 4 07/20/23 18:55: Troponin I High Sens 5 Radiology Impression Chest X-Ray 07/20/23 17:15 IMPRESSION: No acute radiographic abnormalities. Electronically Signed: Yousuf Rico MD at 17:26 EDT , Assessment & Plan Assessment/Plan (1) Asthma exacerbation: QUALIFIERS: Asthma severity: unspecified severity Asthma persistence: unspecified Qualified Code(s): J45.901 - Unspecified asthma with (acute) exacerbation PLAN: Plan 1. Asthma/mild COPD exacerbation: Patient is being admitted on MedSurg floor asan observation. Patient is being managed on scheduled bronchodilator, IV Solu- Medrol, Mucinex DM , Zithromax, incentive spirometry and Pep. She uses BiPAP 12/8 at night with 2 L of oxygen. Currently she is not hypoxic or tachypneic at rest but gets mild tachypneic on exertion. 2 troponins are negative therefore ACS ruled out. EKG does not show acute ischemic changes. COVID and flu antigens and respiratory panel ordered. Sputum culture if patientproduces sputum. Patient states she has 2 shots of COVID-19 vaccine in the past. 3. History of bilateral pulmonary embolism and hypertension: Continue Eliquis. Blood pressure in normal range. 3. Bilateral amputee, right BKA and left AKA: She was last admitted in October 2022 for sepsis secondary to left lower extremity cellulitis after she had necrotizing fasciitis in the past. She still has dressing on left AKA stump rapidly underlying ulcer. Wound dressing. During last time she was discharged on antibiotic and appointment with orthopedic surgeon. Glucose 116. A1c ordered for tomorrow AM.She denies history of diabetes mellitus but family history of DM.. 4. Anxiety/depression: Home medications continued. No acute issues. 5. GERD: On PPI 6. Chronic iron deficiency anemia: 8 H&H 11.3/36%. Continue iron supplement. ? Iron studies did demonstrate iron deficiency anemia, she did get a dose of Venofer yesterday, will transition her to oral replacement ? She is on a PPI so we will also start her on vitamin C whenever she takes her iron. VTE prophylaxis: On Eliquis. Laboratory Results 07/20/23 16:42: WBC 7.4, RBC 4.39, Hgb 11.3 L, Hct 36.8 L, MCV 83.8, MCH 25.7 L,MCHC 30.7 L, RDW Std Deviation 46.1 H, RDW Coeff of Naga 15.2 H, Plt Count 294, MPV 11.5, Immature Gran % (Auto) 0.400, Neut % (Auto) 60.6, Lymph % (Auto) 25.9,Rabun % (Auto) 10.1 H, Eos % (Auto) 2.3, Baso % (Auto) 0.7, Absolute Neuts (auto)4.5, Absolute Lymphs (auto) 1.92, Nucleated RBC % 0, Sodium 141, Potassium 4.0, Chloride 107, Carbon Dioxide 28.0, Anion Gap 6, BUN 18, Creatinine 0.76, Estim Creat Clear Calc 70.93, Est GFR (MDRD) Af Amer 99, Est GFR (MDRD) Non-Af 82, BUN/Creatinine Ratio 23.7 H, Glucose 116 H, Calcium 8.9, Troponin I High Sens 4 07/20/23 18:55: Troponin I High Sens 5 Charges/Coding Visit Charges Inpatient E&M: 63758 Init Hosp L3 Procedures Hospitalists Procedures: 04211 Advncd Care Plan 30 Min 07/20/232105 <Electronically signed by Laron Campoverde MD> Cosigner Signature (if applicable): CC: GINO Maddox; Dr. Laron Campoverde MD~ Signed ADDENDUM by Dr. Laron Campoverde MD on 07/21/23 at 2018 Addendum If Endo patient's pulse ox was 95% on room air but she was tachypneic, short of breath while conversation in the ED. The ER physician said that patient is bilateral amputee therefore does not ambulate but she is short of breath therefore not able to send her home. Patient wanted to get admitted for treatment for COPD exacerbation. 07/21/232017<Electronically signed by Laron Campoverde MD> Cosigner Signature (if applicable): cc: GNIO Maddox; Dr. Laron Campoverde MD ~* Signed [facility] Work Phone: 1(758) 974-899010-21-2023 Progress note Author [facility] July 21, 2023 2:54pm Note Date/Time July 21, 2023 2 :32pm [facility] Medical Records Department [address] [place] [address] Progress Note - Hospitalist 07/21/23 1429 MR#: [id number] Acct: [id number] Name: SIOBHAN HAAS Rep #:[id number] : 1960 62 From: Jon Brito DO PCP: Oj Maddox, GINO August tus:ADM IN Location: [place] [id number] Reason for Visit Reason for Visit: Diagnoses Unspecified asthma with (acute) exacerbation (07/20/23) Subjective Subjective Patient was seen and examined, she was admitted last night with complaints of chest pain and shortness of breath, she was felt to have an exacerbation of COPD. Today patient is on room air, she has not required oxygen since she has been admitted yesterday. I checked with [facility], she is currently they are under skilled care and since she has a full admission here at the hospital, she will need pre-CERT to return to the extendedcare facility. Objective Data Objective Data Vital Signs: Vital Signs Temp Pulse Resp BP Pulse Ox O2 Del Method 98.0 F 80 18 154/87 H 93 Room Air 07/21/23 10:05 07/21/23 11:58 07/21/23 11:58 07/21/23 10:05 07/21/23 10:05 07/21/23 10:05 Oxygen Delivery Method Room Air Weight: 153.2 kg Body Mass Index (BMI) 54.5 Intake & Output: Intake and Output for Last 24 Hours 07/19/23 07/20/23 07/21/23 23:59 23:59 23:59 Intake Total 1195 / 1195 Output Total 1650 / 1650 Balance -455 / -455 Lab / Micro Data 07/20/23 16:42 07/20/23 16:42 Labs: Laboratory Results - last 24 hr 07/20/23 16:42: WBC 7.4, RBC 4.39, Hgb 11.3 L, Hct 36.8 L, MCV 83.8, MCH 25.7 L,MCHC 30.7 L, RDW Std Deviation 46.1 H, RDW Coeff of Naga 15.2 H, Plt Count 294, MPV 11.5, Immature Gran % (Auto) 0.400, Neut % (Auto) 60.6, Lymph % (Auto) 25.9,Rabun % (Auto) 10.1 H, Eos % (Auto) 2.3, Baso % (Auto) 0.7, Absolute Neuts (auto)4.5, Absolute Lymphs (auto) 1.92, Nucleated RBC % 0, Sodium 141, Potassium 4.0, Chloride 107, Carbon Dioxide 28.0, Anion Gap 6, BUN 18, Creatinine 0.76, Estim Creat Clear Calc 70.93, Est GFR (MDRD) Af Amer 99, Est GFR (MDRD) Non-Af 82, BUN/Creatinine Ratio 23.7 H, Glucose 116 H, Calcium 8.9, Troponin I High Sens 4 07/20/23 18:55: Troponin I High Sens 5 07/21/23 06:52: Hemoglobin A1c 5.7 H Micro: Microbiology 07/20/23 21:45 Mucosa - Nasopharyngeal Respiratory Panel (PCR) - Final 07/20/23 20:56 Nasal Secretion SARS-CoV-2 & FLU Antigen (Rapid) - Final Radiography Diagnostic Testing: Radiology Impression Chest X-Ray 07/20/23 17:15 IMPRESSION: No acute radiographic abnormalities. Electronically Signed: Yousuf Rico MD at 17:26 EDT , Physical Exam Const alert, oriented x3 and no apparent distress Constitutional Narrative: Patient has morbid obesity General Appearance: cooperative, well kempt and well developed Orientation / Consciousness: awake, oriented to person, oriented to place and oriented to time HEENT normocephalic, head/scalp atraumatic and moist oral mucous membranes Eyes PERRL, EOMs intact bilaterally and conjunctivae normal Neck supple, no JVD, thyroid normal and no carotid bruits General: trachea midline Resp normal respiratory effort, no retractions, no use of accessory muscles and clearto auscultation bilaterally Auscultation: Negative for rales, rhonchi or wheezes Cardio regular rate, regular rhythm, no murmurs, no rub and no gallops GI normal to inspection, nondistended, normoactive bowel sounds, soft to palpation,non-tender and non-distended Extremity Extremity Narrative: Patient has bilateral lower extremity amputations-right below the knee amputation, left [id number]-[id number] amputation Skin no rashes or lesions noted General Skin Exam: no breakdown Neuro oriented x3, CN's II-XII intact bilaterally, no focal motor deficits and no sensory deficits noted Sensorium / Orientation: awake, alert, oriented to person, oriented to place andoriented to time Speech: speech normal Psych affect normal Assessment & Plan Assessment/Plan (1) Asthma exacerbation: QUALIFIERS: Asthma severity: unspecified severity Asthma persistence: unspecified Qualified Code(s): J45.901 - Unspecified asthma with (acute) exacerbation PLAN: Plan 1. Exacerbation of asthma-patient remains on IV Solu-Medrol and aerosol treatments at this time, she does require any supplemental oxygen at this time. #2 obstructive sleep apnea-I have asked respiratory therapy to confirm whether the patient uses BiPAP or CPAP currently, if she does use CPAP at night this will need to be set up here. #3 morbid obesity-complicates care, medical course, recovery, and prognosis #4 essential hypertension-patient is on valsartan and metoprolol currently #5 chronic depression-patient is on Lexapro and amitriptyline #6 chest pain secondary to exacerbation of asthma-patient's troponins were unremarkable Total clinical time spent by myself addressing the patient's medical issues, reviewing all of her data, and collaborating with patient's care team: 35 minutes Charges/Coding Visit Charges Inpatient E&M: 50856 Subs Hosp L2 07/21/23 0597 <Electronically signed by Jon Brito DO> Cosigner Signature (if applicable): CC: ~ Signed [facility] Work Phone: 1([phone]) 906-202410-20-2023 Discharge summary Author Edy Calvin [facility] July 20, 2023 9:07pm Note Date/Time July 20, 2023 5 :26pm [facility] Medical Records Department [address] [place] [address] Emergency Department Summary 07/20/23 MR#: [id number] Acct: [id number] Name: SIOBHAN HAAS Rep #:[id number] : 1960 62 From: Edy Calvin DO PCP: Oj Maddox, GINO August tus:REG ER Location: ED HPI History of Present Illness Chief Complaint: Chest Pain Narrative Narrative: 62-year-old female presenting with chest pain. She states it feels tight acrossthe center of her chest like asthma. It started about 2:00. The patient was sitting listening to music at her facility. Patient states she felt tightness across her chest and she thought maybe this was an asthma/COPD flare. Patient states she went back to her room and did some breathing treatments and states that she became sweaty and more short of breath. EMS was called. She was givennitro in route. She states that she feels like she needs some Solu-Medrol and breathing treatments. Patient denies any cardiac history. Her last heart evaluation was 2 years ago and was normal. She is on Eliquis for history of PE. She has not missed any doses. [facility] Medical History (Updated 07/20/23 @ 20:[address] 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 Depression Failure of outpatient treatment Family [...] ROS ROS ED Constitutional Constitutional ED: Reports sweats; Denies chills or fever(s) Eyes Eyes: Denies blurry vision or change in vision ENT ENT ED: Denies ear pain or sore throat Cardiovascular Cardiovascular: Reports chest pain and palpitations; Denies racing heartbeat Respiratory/Chest Respiratory/Chest: Reports dyspnea; Denies cough or sputum Gastrointestinal Gastrointestinal: Reports nausea; Denies abdominal pain, constipation, diarrhea or vomiting Genitourinary Genitourinary ED: Denies dysuria, hematuria or urinary frequency Musculoskeletal Musculoskeletal: Denies arthralgias, myalgias or neck pain Integumentary Denies abscess, Abrasions or rash Neurologic Neurologic: Denies headache(s), paresthesias or weakness Psychiatric Psychiatric: Denies anxiety, depression, suicidal ideation or suicidal thoughts Endocrine Endocrinology: Denies polydipsia or polyuria EXAM Physical Exam Const Vital Signs: 07/20/23 16:38 07/20/23 16:41 07/20/23 16:49 Temperature 98.5 F Temperature Source Temporal Pulse Rate 88 Respiratory Rate 22 H Respiratory Effort Short of Breath Respiratory Pattern Blood Pressure 139/73 H Blood Pressure Mean 95 Pulse Ox 95 97 Oxygen Delivery Method Room Air Room Air 07/20/23 17:39 07/20/23 17:39 07/20/23 19:00 Temperature Temperature Source Pulse Rate 88 82 Respiratory Rate 24 H 18 Respiratory Effort Respiratory Pattern Normal Blood Pressure 112/75 Blood Pressure Mean 87 Pulse Ox 93 94 Oxygen Delivery Method Room Air Room Air 07/20/23 19:27 Temperature Temperature Source Pulse Rate 83 Respiratory Rate 18 Respiratory Effort Respiratory Pattern Blood Pressure 98/62 Blood Pressure Mean 74 Pulse Ox 94 Oxygen Delivery Method Positive well nourished General Appearance ED: NAD HEENT Reports moist mucous membranes normocephalic Eyes PERRL and EOMs intact bilaterally Chest Wall inspection of chest normal and palpation of chest normal Resp normal respiratory effort Auscultation: wheezes scattered wheezes Cardio regular rate and regular rhythm GI normal to inspection, nondistended, normoactive bowel sounds Neuro oriented x3 and CN's II-XII intact bilaterally Sensorium / Orientation: awake Psych mental status grossly normal Mood & Affect: anxious Heart Score History: Slightly/Non-Suspicious ECG: Normal Age: >45 - <65 years Risk Factors: >/= 3 Risk Factors or History of CAD Score: 3 MDM MDM MDM Narrative Medical decision making narrative: Patient presenting with chest pain. Differential includes ACS, CHF, COPD, asthma, dehydration, electrolyte normalities, costochondritis. Considered PE however she is on Eliquis and has not missed any doses. Patient with scattered wheezes on exam. She given Solu-Medrol and breathing treatments. CBC will be obtained to assess white blood cell count, hemoglobin, platelets. BMP to assessrenal function and electrolytes. High-sensitivity troponin and EKG will be obtained to rule out ischemia/dysrhythmia. Chest x-ray to rule out pneumonia. EKG on my interpretation shows normal sinus rhythm with a ventricular rate of 85bpm outside of ischemic change or ectopy. CBC and BMP unremarkable. High-sensitivity troponin is 4. We will obtain a delta troponin. Chest x-ray my interpretation shows no acute process. I would like to reevaluate the patient and she does not feel she can go home due to her shortness of breath. She wantsto try to stay in the hospital and get treatments for COPD. Delta troponin cameback at 5 therefore there is no significant normal change. Cannot ambulate the patient because she does not have legs show ambulatory pulse ox is unable to be done. Discussed with the hospitalist for admission. Impression: 1. COPD exacerbation 2. Chest pain Lab Data Labs: Laboratory Results - last 24 hr 07/20/23 07/20/23 16:42 18:55 WBC 7.4 RBC 4.39 Hgb 11.3 L Hct 36.8 L MCV 83.8 MCH 25.7 L MCHC 30.7 L RDW Std Deviation 46.1 H RDW Coeff of Naga 15.2 H Plt Count 294 MPV 11.5 Immature Gran % (Auto) 0.400 Neut % (Auto) 60.6 Lymph % (Auto) 25.9 Rabun % (Auto) 10.1 H Eos % (Auto) 2.3 Baso % (Auto) 0.7 Absolute Neuts (auto) 4.5 Absolute Lymphs (auto) 1.92 Nucleated RBC % 0 Sodium 141 Potassium 4.0 Chloride 107 Carbon Dioxide 28.0 Anion Gap 6 BUN 18 Creatinine 0.76 Estim Creat Clear Calc 70.93 Est GFR (MDRD) Af Amer 99 Est GFR (MDRD) Non-Af 82 BUN/Creatinine Ratio 23.7 H Glucose 116 H Calcium 8.9 Troponin I High Sens 4 5 Radiography Diagnostic Testing: Clinical Impression(s) from Imaging Studies Chest X-Ray 07/20/23 17:15 IMPRESSION: No acute radiographic abnormalities. Electronically Signed: Yousuf Rico MD at 17:26 EDT , Discharge Plan Triage Chief Complaint: Chest Pain ED Provider: Edy Calvin Dx/Rx/DC Orders Prescriptions: No Action albuterol sulfate 90 mcg/actuation [...] PRN (Reason: muscle spasm) Qty: 0 0RF Patient Comments: muscle relaxer famotidine 20 mg Tablet 20 mg PO BID amitriptyline 100 mg tablet 100 mg PO QHS cholecalciferol (vitamin D3) 1,250 mcg (50,000 unit) capsule 1,250 mcg PO MO Patient Comments: TAKE 1 CAPSULE BY MOUTH EVERY WEEK metoprolol succinate 50 mg tablet extended release 24 hr 50 mg PO DAILY Patient Comments: TAKE 1 TABLET BY MOUTH EVERY DAY montelukast 10 mg Tablet 10 mg PO DAILY escitalopram oxalate 20 mg tablet 20 mg PO DAILY Patient Comments: TAKE 1 TABLET BY MOUTH ONCE DAILY FOR 30 DAYS. STOP CELEXA. duloxetine 30 mg capsule,delayed release(DR/EC) 30 mg PO DAILY Patient Comments: TAKE 1 CAPSULE BY MOUTH 1 [...] Qty: 60 0RF Primary Care Provider: Oj Maddox NP Referrals: Oj Maddox NP, [employer]ANT REPAIRER-C [Primary Care Provider] - What to do if you have Problems For any increased pain, shortness of breath, bleeding, nausea or vomiting, chestpain, or any unexpected problems, contact your Primary Care Provider. Call [facility] ([phone]) or report to the closest Emergency Room. Call 911 if necessary. 07/20/232106 <Electronically signed by Edy Calvin DO> Cosigner Signature (if applicable): CC: PREPARATION PLANT REPAIRERRona Maddox ~ Signed [facility] Work Phone: 1(827) 739-417610-20-2023 History and physical note Author Laron Campoverde [facility] July 20, 2023 9:06pm Note Date/Time July 20, 2023 8 :15pm [facility] Medical Records Department [address] [place] [address] H&P Exam - Hospitalist 07/20/232011 MR#: [id number] Acct: [id number] Name: SIOBHAN HAAS Rep #:[id number] : 1960 62 From: Laron Cochran PCP: GINO Vasques tus:REG ER Location: ED HPI - General General Date of Admission: 07/20/23 Date of Service: 07/20/23 Chief Complaint: Shortness of breath and chest tightness, came from my review ofthe study. HPI Narrative SIOBHAN HAAS, is a 62 F who lives in [place] in [place] came to ED for chesttightness shortness of breath that started about 1400 hrs. today. 3 nitro was given at longterm and 325 mg aspirin before arrival. Patient started havingshortness of breath and chest tightness today, sudden onset as mentioned above. She denies fever chills, sore throat headache, nausea or vomiting or other prodromal symptoms. Patient states she has history of asthma/COPD for long time. She has not smoked for long time for about 40 to 45 years, probably triedsmoking in the young days. She is also bilateral amputee but does not have a history of diabetes mellitus. Labs reviewed in BMP normal limit. CBC shows mild anemia of chronic disease. Twelve-lead EKG normal sinus rhythm 85 bpm, QTc 442 ms. Portable single AP viewchest x-ray individually reviewed and lungs look clear with no acute radiographic abnormality. [facility] Medical History (Updated 07/20/23 @ 20:[address] 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 use of mcfp anticoagulation Depression Failure of outpatient treatment Family [...] use type: does not use ROS ROS Narrative Constitutional: Reports fatigue and weakness. No fever. HEENT: Reports systems reviewed and no addt'l complaints, except as documented Respiratory/Chest: Mild bilateral audible wheezing. Rest as described in HPI. CVS: Denies history of coronary artery disease or cardiac stent or angina. Gastrointestinal: Denies coffee ground emesis, hematemesis or vomiting Genitourinary: Denies burning urination or new urinary tract symptoms Musculoskeletal: Bilateral amputee. Left above-knee due to necrotizing fasciitis. Right below-knee due to infection/osteomyelitis which required multiple surgery and higher level of amputation. No acute injury. Neurologic: Denies seizure-like symptoms. skin: dressing present on the left AKA stump. Endocrinology: Reports systems reviewed and no addt'l complaints, except as documented Hematologic/Lymphatic: Reports systems reviewed and no addt'l complaints, exceptas documented Rest 14 ROS are negative except as mentioned in HPI Vital Signs Vital Signs Vital Signs: 07/20/23 16:38 07/20/23 16:41 07/20/23 16:49 Temperature 98.5 F Temperature Source Temporal Pulse Rate 88 Respiratory Rate 22 H Respiratory Effort Short of Breath Respiratory Pattern Blood Pressure 139/73 H Blood Pressure Mean 95 Pulse Ox 95 97 Oxygen Delivery Method Room Air Room Air 07/20/23 17:39 07/20/23 17:39 07/20/23 19:00 Temperature Temperature Source Pulse Rate 88 82 Respiratory Rate 24 H 18 Respiratory Effort Respiratory Pattern Normal Blood Pressure 112/75 Blood Pressure Mean 87 Pulse Ox 93 94 Oxygen Delivery Method Room Air Room Air 07/20/23 19:27 Temperature Temperature Source Pulse Rate 83 Respiratory Rate 18 Respiratory Effort Respiratory Pattern Blood Pressure 98/62 Blood Pressure Mean 74 Pulse Ox 94 Oxygen Delivery Method Weight Weight: 160 lb 3.2 oz Body Mass Index (BMI) 25.8 Physical Exam Narrative General: Alert, Oriented x3, Cooperative. BMI 25.9 kg/m?. HEENT: Atraumatic, PERRLA, EOMI, Normocephalic Oral: Oral mucosa dry. No Gingival or Mucosal Lesions/ Ulcerations Neck: Supple, No JVD, Negative Carotid Bruits Lungs: Air entry diminished in bilateral lung bases. Bilateral wheezing. MildDOE. Cardiovascular: Regular rate, Regular Rhythm, Normal S1, Normal S2, No murmurs Abdomen: Bowel Sounds Present, Soft, Non Tender, Non-Distended : No renal angle tenderness. No suprapubic tenderness. Extremities: No edema, Capillary Refill Less than 3 Seconds Skin: Dressing on left AKA stump. Musculoskeletal: Bilateral amputee, right BKA and left AKA. Reflex sympathetic dystrophy. No acute tenderness or injury. Neurological: Cranial nerves II-XII grossly intact, DTR 2+/4. No acute focal neurological deficit. Psych/Mental Status: Normal Affect, Appropriate. Results Lab / Micro Data 07/20/23 16:42 07/20/23 16:42 Labs: Laboratory Results - last 24 hr 07/20/23 16:42: WBC 7.4, RBC 4.39, Hgb 11.3 L, Hct 36.8 L, MCV 83.8, MCH 25.7 L,MCHC 30.7 L, RDW Std Deviation 46.1 H, RDW Coeff of Naga 15.2 H, Plt Count 294, MPV 11.5, Immature Gran % (Auto) 0.400, Neut % (Auto) 60.6, Lymph % (Auto) 25.9,Rabun % (Auto) 10.1 H, Eos % (Auto) 2.3, Baso % (Auto) 0.7, Absolute Neuts (auto)4.5, Absolute Lymphs (auto) 1.92, Nucleated RBC % 0, Sodium 141, Potassium 4.0, Chloride 107, Carbon Dioxide 28.0, Anion Gap 6, BUN 18, Creatinine 0.76, Estim Creat Clear Calc 70.93, Est GFR (MDRD) Af Amer 99, Est GFR (MDRD) Non-Af 82, BUN/Creatinine Ratio 23.7 H, Glucose 116 H, Calcium 8.9, Troponin I High Sens 4 07/20/23 18:55: Troponin I High Sens 5 Radiology Impression Chest X-Ray 07/20/23 17:15 IMPRESSION: No acute radiographic abnormalities. Electronically Signed: Yousuf Rico MD at 17:26 EDT , Assessment & Plan Assessment/Plan (1) Asthma exacerbation: QUALIFIERS: Asthma severity: unspecified severity Asthma persistence: unspecified Qualified Code(s): J45.901 - Unspecified asthma with (acute) exacerbation PLAN: Plan 1. Asthma/mild COPD exacerbation: Patient is being admitted on MedSur floor asan observation. Patient is being managed on scheduled bronchodilator, IV Solu- Medrol, Mucinex DM , Zithromax, incentive spirometry and Pep. She uses BiPAP 12/8 at night with 2 L of oxygen. Currently she is not hypoxic or tachypneic at rest but gets mild tachypneic on exertion. 2 troponins are negative therefore ACS ruled out. EKG does not show acute ischemic changes. COVID and flu antigens and respiratory panel ordered. Sputum culture if patientproduces sputum. Patient states she has 2 shots of COVID-19 vaccine in the past. 3. History of bilateral pulmonary embolism and hypertension: Continue Eliquis. Blood pressure in normal range. 3. Bilateral amputee, right BKA and left AKA: She was last admitted in October 2022 for sepsis secondary to left lower extremity cellulitis after she had necrotizing fasciitis in the past. She still has dressing on left AKA stump rapidly underlying ulcer. Wound dressing. During last time she was discharged on antibiotic and appointment with orthopedic surgeon. Glucose 116. A1c ordered for tomorrow AM.She denies history of diabetes mellitus but family history of DM.. 4. Anxiety/depression: Home medications continued. No acute issues. 5. GERD: On PPI 6. Chronic iron deficiency anemia: 8 H&H 11.3/36%. Continue iron supplement. ? Iron studies did demonstrate iron deficiency anemia, she did get a dose of Venofer yesterday, will transition her to oral replacement ? She is on a PPI so we will also start her on vitamin C whenever she takes her iron. VTE prophylaxis: On Eliquis. Laboratory Results 07/20/23 16:42: WBC 7.4, RBC 4.39, Hgb 11.3 L, Hct 36.8 L, MCV 83.8, MCH 25.7 L,MCHC 30.7 L, RDW Std Deviation 46.1 H, RDW Coeff of Naga 15.2 H, Plt Count 294, MPV 11.5, Immature Gran % (Auto) 0.400, Neut % (Auto) 60.6, Lymph % (Auto) 25.9,Rabun % (Auto) 10.1 H, Eos % (Auto) 2.3, Baso % (Auto) 0.7, Absolute Neuts (auto)4.5, Absolute Lymphs (auto) 1.92, Nucleated RBC % 0, Sodium 141, Potassium 4.0, Chloride 107, Carbon Dioxide 28.0, Anion Gap 6, BUN 18, Creatinine 0.76, Estim Creat Clear Calc 70.93, Est GFR (MDRD) Af Amer 99, Est GFR (MDRD) Non-Af 82, BUN/Creatinine Ratio 23.7 H, Glucose 116 H, Calcium 8.9, Troponin I High Sens 4 07/20/23 18:55: Troponin I High Sens 5 Charges/Coding Visit Charges Inpatient E&M: 34920 Init Hosp L3 Procedures Hospitalists Procedures: 17170 Advncd Care Plan 30 Min 07/20/232105 <Electronically signed by Laron Campoverde MD> Cosigner Signature (if applicable): CC: PREPARATION PLANT REPAIRERRona Maddox; Dr. Laron Campoverde MD~ Signed [facility] Work Phone: [phone]) 162-633010-11-2023 History of Present illness Narrative* Cristian Maxwell, - 07/11/2023 10:00 AM EDT [facility] Infectious Diseases Attending Outpatient Progress Note HISTORY OF PRESENT ILLNESS Ms. Haas is a 62 y/o F w/ PMH of LLE necrotizing fascitis s/p debridement and L AKA, R BKA, COPD/asthma on home O2, prior b/l PE 08/2022 (AC on apixaban), FAY on BIPAP, GERD, HTN, OA, depression, fibromyalgia. She presents to the ID clinic 07/11/23 for a post-hospitalization f/u visit for RUE PICC line infection and LLE AKA site infection. She was admitted to [facility] 06/26-07/03. She originally presented to [facility] ED 06/25 d/t PICC site erythema/malposition. She noted that PICC site was erythematous w/o purulent discharge and that the line had retracted from site of insertion. Prior to this admission, she had presented to [facility] to the orthopedics service 05/28; she was seen 1w postop by ortho following I&D of L thigh hematoma. CXs obtained at the time were (+) for Finegoldia magna, MSSA. She was taken for I&D of abscess. She was d/c w/ daptomycin + ertapenem x6w (enddate 07/12/23). Prior to completion of this course, she developed cellulitis around RUE PICC. She was admitted, and PICC line was removed; new PICC was placed in LUE. During my assessment, patient states that she is feeling well. Currently seated in wheelchair. LLE AKA site is healing appropriately. No visible erythema or drainage is present. PICC line is in placein LUE; dressing is intact. There is no tenderness to palpation at the insertion site. No visible erythema, swelling, bleeding, or discharge is present. No fluctuance on palpation. She denies F/C, N/V/D, abdominal pain, cough, or shortness of breath. No further complaints. Review of Systems Constitutional: Negative for chills, diaphoresis, fatigue and fever. Respiratory: Negative for cough, shortness of breath and wheezing. Cardiovascular: Negative for palpitations and leg swelling. Gastrointestinal: Negative for abdominal distention and abdominal pain. Musculoskeletal: Negative for joint swelling and myalgias. Skin: Positive for wound. Negative for color change, pallor and rash. Social History Socioeconomic History Marital status: Spouse name: Not on file Number of children: Not on file Years of education: Not on file Highest education level: Not on file Occupational History Not on file Tobacco Use Smoking status: Former Packs/day: 0.15 Years: 5.00 Additional pack years: 0.00 Total pack years: 0.75 Types: Cigarettes Quit date: 10/01/1981 Years since quittin.8 Passive exposure: Past Smokeless tobacco: Never Vaping Use Vaping Use: Never used Substance and Sexual Activity Alcohol use: Not Currently Drug use: No Sexual activity: Yes Partners: Male Other Topics Concern Not on file Social History Narrative Has been in rehab facility in [place] Lives alone, son close Friends help Social Determinants of Health Financial Resource Strain: Low Risk (06/27/2023) Overall Financial Resource Strain (CARDIA) Difficulty of Paying Living Expenses: Not hard at all Food Insecurity: Unknown (06/27/2023) Hunger Vital Sign Worried About Running Out of Food in the Last Year: Not on file Ran Out of Food in the Last Year: Never true Transportation Needs: No Transportation Needs (06/27/2023) PRAPARE - Transportation Lack of Transportation (Medical): No Lack of Transportation (Non-Medical): No Physical Activity: Inactive (06/27/2023) Exercise Vital Sign Days of Exercise per Week: 0 days Minutes of Exercise per Session: 0 min Stress: No Stress Concern Present (06/27/2023) [place] [employer] - Occupational Stress Questionnaire Feeling of Stress : Not at all Social Connections: Moderately Isolated (06/27/2023) Social Connection and Isolation Panel [NHANES] Frequency of Communication with Friends and Family: More than three times a week Frequency of Social Gatherings with Friends and Family: Once a week Attends Rastafarian Services: More than 4 times per year Active Member of Clubs or Organizations: No Attends Club or Organization Meetings: Never Marital Status: Intimate Partner Violence: Not At Risk (06/27/2023) Humiliation, Afraid, Rape, and Kick questionnaire Fear of Current or Ex-Partner: No Emotionally Abused: No Physically Abused: No Sexually Abused: No Housing Stability: Low Risk (06/27/2023) Housing Stability Vital Sign Unable to Pay for Housing in the Last Year: No Number of Places Lived in the Last Year: 1 Unstable Housing in the Last Year: No 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 ([facility]) 07/27/2020 Asthma Cellulitis Constipation Depression Difficult intubation 12/04/2022 Fibromyalgia GERD (gastroesophageal reflux disease) History of transfusion Hx of right BKA (CMS/HCC) (HCC) Hypertension Morbidly obese ([facility]) 02/03/2019 BMI 50.52 On home O2 FAY treated with BiPAP Osteoarthritis Osteomyelitis of right foot ([facility]) SCHEDULED FOR THE SURGERY ON 02/11/2019 Pulmonary embolism ([facility]) Seasonal allergies Shortness of breath URSULA (stress urinary incontinence, female) Vertigo Family History Problem Relation Name Age of Onset Pancreatic cancer Mother Pancreatic cancer Father Visit Vitals BP 130/78 (BP Location: Right arm, Patient Position: Sitting, BP Cuff Size: Adult) Pulse 87 Temp 36.3 C (97.3 F) Wt Readings from Last 3 Encounters: 07/11/23 (!) 333 lb 12.8 oz (151 kg) 07/09/23 (!) 335 lb (152 kg) 06/29/23 (!) 335 lb (152 kg) Physical Exam Constitutional: General: She is not in acute distress. Appearance: Normal appearance. She is obese. She is not ill-appearing, toxic- appearing or diaphoretic. Comments: In wheelchair HENT: Head: Normocephalic and atraumatic. Nose: Nose normal. Mouth/Throat: Mouth: Mucous membranes are moist. Pharynx: Oropharynx is clear. No oropharyngeal exudate or posterior oropharyngeal erythema. Eyes: General: No scleral icterus. Extraocular Movements: Extraocular movements intact. Pupils: Pupils are equal, round, and reactive to light. Cardiovascular: Rate and Rhythm: Normal rate and regular rhythm. Pulses: Normal pulses. Heart sounds: Normal heart sounds. No murmur heard. No friction rub. No gallop. Pulmonary: Effort: Pulmonary effort is normal. No respiratory distress. Breath sounds: Normal breath sounds. No wheezing, rhonchi or rales. Comments: Diminished breath sounds b/l Abdominal: General: Abdomen is flat. Bowel sounds are normal. Palpations: Abdomen is soft. Tenderness: There is no abdominal tenderness. There is no guarding or rebound. Musculoskeletal: General: Deformity present. No swelling. Normal range of motion. Comments: PICC line in place, LUE s/p L AKA, R BKA Surgical site at L AKA healing appropriately; no surrounding erythema, bleeding, or discharge Skin: General: Skin is warm and dry. Capillary Refill: Capillary refill takes less than 2 seconds. Coloration: Skin is not pale. Findings: No erythema, lesion or rash. Neurological: General: No focal deficit present. Mental Status: She is alert. Psychiatric: Mood and Affect: Mood normal. Judgment: Judgment normal. Admission on 06/26/2023, Discharged on 07/03/2023 Component Date Value Ref Range Status SODIUM 06/25/2023 141 135 - 145 mmol/L Final POTASSIUM 06/25/2023 4.6 3.5 - 5.1 mmol/L Final CHLORIDE 06/25/2023 105 98 - 107 mmol/L Final CARBON DIOXIDE 06/25/2023 26 22 - 30 mmol/L Final ANION GAP 06/25/2023 10 3 - 13 mmol/L Final UREA NITROGEN 06/25/2023 16 7 - 17 mg/dL Final CREATININE 06/25/2023 0.58 0.52 - 1.04 mg/dL Final GLUCOSE 06/25/2023 106 (H) 70 - 100 mg/dL Final CALCIUM 06/25/2023 9.7 8.4 - 10.4 mg/dL Final AST (SGOT) 06/25/2023 32 15 - 46 U/L Final ALT 06/25/2023 30 0 - 34 U/L Final ALKALINE PHOSPHATASE 06/25/2023 136 (H) 38 - 126 U/L Final ALBUMIN 06/25/2023 4.3 3.5 - 5.0 g/dL Final BILIRUBIN, TOTAL 06/25/2023 0.5 0.2 - 1.3 mg/dL Final TOTAL PROTEIN 06/25/2023 8.2 6.3 - 8.2 g/dL Final eGFR 06/25/2023 >90.0 >60.0 mL/min/1.73m*2 Final C REACTIVE PROTEIN 06/25/2023 11.9 (H) <10.0 mg/L Final Sed Rate 06/25/2023 57 (H) 0 - 20 mm/hr Final Auto WBC 06/25/2023 5.9 3.6 - 10.7 10*3/uL Final RBC 06/25/2023 5.02 3.8 - 5.20 10*6/uL Final Hemoglobin 06/25/2023 13.4 11.7 - 16.0 g/dL Final Hematocrit 06/25/2023 41.8 35.0 - 47.0 % Final MCV 06/25/2023 83.2 80.0 - 98.0 fL Final MCH 06/25/2023 26.7 26.0 - 34.0 pg Final MCHC 06/25/2023 32.1 32.0 - 36.0 % Final RDW 06/25/2023 15.6 (H) 11.5 - 14.5 % Final Platelets 06/25/2023 288 140 - 440 10*3/uL Final MPV 06/25/2023 8.8 7.4 - 12.4 fL Final nRBC 06/25/2023 0.0 0.0 - 2.0 /100 WBCs Final Neutrophils Relative 06/25/2023 53.9 40.0 - 80.0 % Final Lymphocytes Relative 06/25/2023 27.6 20.0 - 40.0 % Final Monocytes Relative 06/25/2023 12.7 (H) 2.0 - 10.0 % Final Eosinophils Relative 06/25/2023 4.9 1.0 - 6.0 % Final Basophils Relative 06/25/2023 0.9 0.0 - 2.0 % Final Neutrophils Absolute 06/25/2023 3.2 1.8 - 7.0 10*3/uL Final Lymphocytes Absolute 06/25/2023 1.6 1.0 - 4.3 10*3/uL Final Monocytes Absolute 06/25/2023 0.7 0.0 - 0.8 10*3/uL Final Eosinophils Absolute 06/25/2023 0.3 0.0 - 0.5 10*3/uL Final Basophils Absolute 06/25/2023 0.1 0.0 - 0.2 10*3/uL Final Blood Culture 06/26/2023 No growth at 5 days Final Blood Culture 06/26/2023 No growth at 5 days Final Auto WBC 06/27/2023 4.6 3.6 - 10.7 10*3/uL Final RBC 06/27/2023 4.35 3.8 - 5.20 10*6/uL Final Hemoglobin 06/27/2023 11.7 11.7 - 16.0 g/dL Final Hematocrit 06/27/2023 36.2 35.0 - 47.0 % Final MCV 06/27/2023 83.1 80.0 - 98.0 fL Final MCH 06/27/2023 26.9 26.0 - 34.0 pg Final MCHC 06/27/2023 32.3 32.0 - 36.0 % Final RDW 06/27/2023 15.3 (H) 11.5 - 14.5 % Final Platelets 06/27/2023 247 140 - 440 10*3/uL Final MPV 06/27/2023 8.5 7.4 - 12.4 fL Final nRBC 06/27/2023 0.1 0.0 - 2.0 /100 WBCs Final Neutrophils Relative 06/27/2023 55.2 40.0 - 80.0 % Final Lymphocytes Relative 06/27/2023 25.3 20.0 - 40.0 % Final Monocytes Relative 06/27/2023 12.2 (H) 2.0 - 10.0 % Final Eosinophils Relative 06/27/2023 6.3 (H) 1.0 - 6.0 % Final Basophils Relative 06/27/2023 1.0 0.0 - 2.0 % Final Neutrophils Absolute 06/27/2023 2.6 1.8 - 7.0 10*3/uL Final Lymphocytes Absolute 06/27/2023 1.2 1.0 - 4.3 10*3/uL Final Monocytes Absolute 06/27/2023 0.6 0.0 - 0.8 10*3/uL Final Eosinophils Absolute 06/27/2023 0.3 0.0 - 0.5 10*3/uL Final Basophils Absolute 06/27/2023 0.0 0.0 - 0.2 10*3/uL Final PROTHROMBIN TIME 06/27/2023 10.7 9.0 - 12.0 s Final INR 06/27/2023 1.0 0.9 - 1.1 Final APTT 06/27/2023 30.7 (H) 20.0 - 30.5 s Final SODIUM 06/27/2023 137 135 - 145 mmol/L Final POTASSIUM 06/27/2023 4.0 3.5 - 5.1 mmol/L Final CHLORIDE 06/27/2023 104 98 - 107 mmol/L Final CARBON DIOXIDE 06/27/2023 24 22 - 30 mmol/L Final ANION GAP 06/27/2023 10 3 - 13 mmol/L Final UREA NITROGEN 06/27/2023 17 7 - 17 mg/dL Final CREATININE 06/27/2023 0.59 0.52 - 1.04 mg/dL Final GLUCOSE 06/27/2023 125 (H) 70 - 100 mg/dL Final CALCIUM 06/27/2023 8.7 8.4 - 10.4 mg/dL Final AST (SGOT) 06/27/2023 23 15 - 46 U/L Final ALT 06/27/2023 23 0 - 34 U/L Final ALKALINE PHOSPHATASE 06/27/2023 130 (H) 38 - 126 U/L Final ALBUMIN 06/27/2023 3.6 3.5 - 5.0 g/dL Final BILIRUBIN, TOTAL 06/27/2023 0.4 0.2 - 1.3 mg/dL Final TOTAL PROTEIN 06/27/2023 6.8 6.3 - 8.2 g/dL Final eGFR 06/27/2023 >90.0 >60.0 mL/min/1.73m*2 Final Auto WBC 06/29/2023 5.4 3.6 - 10.7 10*3/uL Final RBC 06/29/2023 4.53 3.8 - 5.20 10*6/uL Final Hemoglobin 06/29/2023 12.1 11.7 - 16.0 g/dL Final Hematocrit 06/29/2023 37.6 35.0 - 47.0 % Final MCV 06/29/2023 83.0 80.0 - 98.0 fL Final MCH 06/29/2023 26.6 26.0 - 34.0 pg Final MCHC 06/29/2023 32.0 32.0 - 36.0 % Final RDW 06/29/2023 15.3 (H) 11.5 - 14.5 % Final Platelets 06/29/2023 259 140 - 440 10*3/uL Final MPV 06/29/2023 8.9 7.4 - 12.4 fL Final nRBC 06/29/2023 0.0 0.0 - 2.0 /100 WBCs Final Neutrophils Relative 06/29/2023 54.2 40.0 - 80.0 % Final Lymphocytes Relative 06/29/2023 27.3 20.0 - 40.0 % Final Monocytes Relative 06/29/2023 12.0 (H) 2.0 - 10.0 % Final Eosinophils Relative 06/29/2023 5.7 1.0 - 6.0 % Final Basophils Relative 06/29/2023 0.8 0.0 - 2.0 % Final Neutrophils Absolute 06/29/2023 2.9 1.8 - 7.0 10*3/uL Final Lymphocytes Absolute 06/29/2023 1.5 1.0 - 4.3 10*3/uL Final Monocytes Absolute 06/29/2023 0.6 0.0 - 0.8 10*3/uL Final Eosinophils Absolute 06/29/2023 0.3 0.0 - 0.5 10*3/uL Final Basophils Absolute 06/29/2023 0.0 0.0 - 0.2 10*3/uL Final SODIUM 06/29/2023 139 135 - 145 mmol/L Final POTASSIUM 06/29/2023 3.8 3.5 - 5.1 mmol/L Final CHLORIDE 06/29/2023 103 98 - 107 mmol/L Final CARBON DIOXIDE 06/29/2023 25 22 - 30 mmol/L Final UREA NITROGEN 06/29/2023 13 7 - 17 mg/dL Final CREATININE 06/29/2023 0.56 0.52 - 1.04 mg/dL Final GLUCOSE 06/29/2023 115 (H) 70 - 100 mg/dL Final CALCIUM 06/29/2023 8.8 8.4 - 10.4 mg/dL Final ANION GAP 06/29/2023 12 3 - 13 mmol/L Final eGFR 06/29/2023 >90.0 >60.0 mL/min/1.73m*2 Final Auto WBC 06/30/2023 5.4 3.6 - 10.7 10*3/uL Final RBC 06/30/2023 4.20 3.8 - 5.20 10*6/uL Final Hemoglobin 06/30/2023 11.1 (L) 11.7 - 16.0 g/dL Final Hematocrit 06/30/2023 34.8 (L) 35.0 - 47.0 % Final MCV 06/30/2023 82.9 80.0 - 98.0 fL Final MCH 06/30/2023 26.3 26.0 - 34.0 pg Final MCHC 06/30/2023 31.7 (L) 32.0 - 36.0 % Final RDW 06/30/2023 15.3 (H) 11.5 - 14.5 % Final Platelets 06/30/2023 249 140 - 440 10*3/uL Final MPV 06/30/2023 9.2 7.4 - 12.4 fL Final nRBC 06/30/2023 0.0 0.0 - 2.0 /100 WBCs Final Neutrophils Relative 06/30/2023 58.9 40.0 - 80.0 % Final Lymphocytes Relative 06/30/2023 22.2 20.0 - 40.0 % Final Monocytes Relative 06/30/2023 13.1 (H) 2.0 - 10.0 % Final Eosinophils Relative 06/30/2023 5.0 1.0 - 6.0 % Final Basophils Relative 06/30/2023 0.8 0.0 - 2.0 % Final Neutrophils Absolute 06/30/2023 3.2 1.8 - 7.0 10*3/uL Final Lymphocytes Absolute 06/30/2023 1.2 1.0 - 4.3 10*3/uL Final Monocytes Absolute 06/30/2023 0.7 0.0 - 0.8 10*3/uL Final Eosinophils Absolute 06/30/2023 0.3 0.0 - 0.5 10*3/uL Final Basophils Absolute 06/30/2023 0.0 0.0 - 0.2 10*3/uL Final Auto WBC 07/01/2023 5.2 3.6 - 10.7 10*3/uL Final RBC 07/01/2023 4.19 3.8 - 5.20 10*6/uL Final Hemoglobin 07/01/2023 11.0 (L) 11.7 - 16.0 g/dL Final Hematocrit 07/01/2023 34.7 (L) 35.0 - 47.0 % Final MCV 07/01/2023 82.8 80.0 - 98.0 fL Final MCH 07/01/2023 26.2 26.0 - 34.0 pg Final MCHC 07/01/2023 31.7 (L) 32.0 - 36.0 % Final RDW 07/01/2023 15.1 (H) 11.5 - 14.5 % Final Platelets 07/01/2023 249 140 - 440 10*3/uL Final MPV 07/01/2023 8.3 7.4 - 12.4 fL Final nRBC 07/01/2023 0.0 0.0 - 2.0 /100 WBCs Final Neutrophils Relative 07/01/2023 58.9 40.0 - 80.0 % Final Lymphocytes Relative 07/01/2023 22.9 20.0 - 40.0 % Final Monocytes Relative 07/01/2023 12.0 (H) 2.0 - 10.0 % Final Eosinophils Relative 07/01/2023 5.5 1.0 - 6.0 % Final Basophils Relative 07/01/2023 0.7 0.0 - 2.0 % Final Neutrophils Absolute 07/01/2023 3.1 1.8 - 7.0 10*3/uL Final Lymphocytes Absolute 07/01/2023 1.2 1.0 - 4.3 10*3/uL Final Monocytes Absolute 07/01/2023 0.6 0.0 - 0.8 10*3/uL Final Eosinophils Absolute 07/01/2023 0.3 0.0 - 0.5 10*3/uL Final Basophils Absolute 07/01/2023 0.0 0.0 - 0.2 10*3/uL Final Auto WBC 07/02/2023 5.0 3.6 - 10.7 10*3/uL Final RBC 07/02/2023 4.04 3.8 - 5.20 10*6/uL Final Hemoglobin 07/02/2023 10.7 (L) 11.7 - 16.0 g/dL Final Hematocrit 07/02/2023 33.4 (L) 35.0 - 47.0 % Final MCV 07/02/2023 82.8 80.0 - 98.0 fL Final MCH 07/02/2023 26.5 26.0 - 34.0 pg Final MCHC 07/02/2023 32.0 32.0 - 36.0 % Final RDW 07/02/2023 15.4 (H) 11.5 - 14.5 % Final Platelets 07/02/2023 250 140 - 440 10*3/uL Final MPV 07/02/2023 8.3 7.4 - 12.4 fL Final nRBC 07/02/2023 0.0 0.0 - 2.0 /100 WBCs Final Neutrophils Relative 07/02/2023 60.8 40.0 - 80.0 % Final Lymphocytes Relative 07/02/2023 22.4 20.0 - 40.0 % Final Monocytes Relative 07/02/2023 10.6 (H) 2.0 - 10.0 % Final Eosinophils Relative 07/02/2023 5.1 1.0 - 6.0 % Final Basophils Relative 07/02/2023 1.1 0.0 - 2.0 % Final Neutrophils Absolute 07/02/2023 3.1 1.8 - 7.0 10*3/uL Final Lymphocytes Absolute 07/02/2023 1.1 1.0 - 4.3 10*3/uL Final Monocytes Absolute 07/02/2023 0.5 0.0 - 0.8 10*3/uL Final Eosinophils Absolute 07/02/2023 0.3 0.0 - 0.5 10*3/uL Final Basophils Absolute 07/02/2023 0.1 0.0 - 0.2 10*3/uL Final Auto WBC 07/03/2023 5.4 3.6 - 10.7 10*3/uL Final RBC 07/03/2023 4.11 3.8 - 5.20 10*6/uL Final Hemoglobin 07/03/2023 10.9 (L) 11.7 - 16.0 g/dL Final Hematocrit 07/03/2023 34.0 (L) 35.0 - 47.0 % Final MCV 07/03/2023 82.6 80.0 - 98.0 fL Final MCH 07/03/2023 26.4 26.0 - 34.0 pg Final MCHC 07/03/2023 32.0 32.0 - 36.0 % Final RDW 07/03/2023 15.3 (H) 11.5 - 14.5 % Final Platelets 07/03/2023 237 140 - 440 10*3/uL Final MPV 07/03/2023 8.7 7.4 - 12.4 fL Final nRBC 07/03/2023 0.0 0.0 - 2.0 /100 WBCs Final Neutrophils Relative 07/03/2023 60.5 40.0 - 80.0 % Final Lymphocytes Relative 07/03/2023 22.4 20.0 - 40.0 % Final Monocytes Relative 07/03/2023 10.9 (H) 2.0 - 10.0 % Final Eosinophils Relative 07/03/2023 5.6 1.0 - 6.0 % Final Basophils Relative 07/03/2023 0.6 0.0 - 2.0 % Final Neutrophils Absolute 07/03/2023 3.3 1.8 - 7.0 10*3/uL Final Lymphocytes Absolute 07/03/2023 1.2 1.0 - 4.3 10*3/uL Final Monocytes Absolute 07/03/2023 0.6 0.0 - 0.8 10*3/uL Final Eosinophils Absolute 07/03/2023 0.3 0.0 - 0.5 10*3/uL Final Basophils Absolute 07/03/2023 0.0 0.0 - 0.2 10*3/uL Final Orders Only on 06/18/2023 Component Date Value Ref Range Status GLUCOSE 06/18/2023 97 65 - 99 mg/dL Final Urea Nitrogen (BUN) 06/18/2023 12 7 - 25 mg/dL Final Creatinine 06/18/2023 0.58 0.50 - 1.05 mg/dL Final EGFR 06/18/2023 102 > OR = 60 mL/min/1.73m2 Final BUN/CREATININE RATIO 06/18/2023 SEE NOTE: 6 - 22 (calc) Final SODIUM 06/18/2023 140 135 - 146 mmol/L Final POTASSIUM 06/18/2023 4.2 3.5 - 5.3 mmol/L Final CHLORIDE 06/18/2023 104 98 - 110 mmol/L Final Carbon Dioxide (CO2) 06/18/2023 27 20 - 32 mmol/L Final CALCIUM 06/18/2023 9.3 8.6 - 10.4 mg/dL Final CREATINE KINASE, TOTAL 06/18/2023 51 29 - 143 U/L Final White Blood Cell Count 06/18/2023 6.7 3.8 - 10.8 Thousand/uL Final RBC 06/18/2023 4.59 3.80 - 5.10 Million/uL Final HEMOGLOBIN 06/18/2023 12.5 11.7 - 15.5 g/dL Final HEMATOCRIT 06/18/2023 38.6 35.0 - 45.0 % Final MCV 06/18/2023 84.1 80.0 - 100.0 fL Final MCH 06/18/2023 27.2 27.0 - 33.0 pg Final MCHC 06/18/2023 32.4 32.0 - 36.0 g/dL Final RDW 06/18/2023 14.0 11.0 - 15.0 % Final Platelet Count 06/18/2023 313 140 - 400 Thousand/uL Final Mean Platelet Volume (MPV) 06/18/2023 11.7 7.5 - 12.5 fL Final Absolute Neutrophils 06/18/2023 4,241 1,500 - 7,800 cells/uL Final ABSOLUTE LYMPHOCYTES - [facility] 06/18/2023 1,447 850 - 3,900 cells/uL Final Monocytes Absolute 06/18/2023 690 200 - 950 cells/uL Final ABSOLUTE EOSINOPHILS - [facility] 06/18/2023 281 15 - 500 cells/uL Final ABSOLUTE BASOPHILS - [facility] 06/18/2023 40 0 - 200 cells/uL Final Neutrophils Relative 06/18/2023 63.3 % Final Lymphocytes Absolute 06/18/2023 21.6 % Final MONOCYTES - [facility] 06/18/2023 10.3 % Final EOSINOPHILS - [facility] 06/18/2023 4.2 % Final BASOPHILS - [facility] 06/18/2023 0.6 % Final ASSESSMENT/PLAN 1. Necrotizing soft tissue infection 2. long term care pharmacist (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 antibiotics ADDITIONAL PLAN NOTES Patient has completed an adequate course of antimicrobial therapy. No indication to extend antibiotic duration. Will remove PICC line at today's visit. Will follow up with patient as needed. She is instructed to contact the office if she develops any worsening symptoms, such as fever, chills, or worsening pain around the LLE AKA site. On this date, 07/11/23 I have spent 30 minutes reviewing previous notes, test results and face to face with the patient discussing the diagnosis and importance of compliance with the treatment plan as well as documenting on the day of the visit. documented in this [facility]10-09-2023 History of Present illness Narrative* CARMELA Ramos - 07/09/2023 2:00 PM EDT Images from the original note were not included. [facility] [address] [facility] [id number] Dept: [phone] Dept Siobhan Nette Haas 1960 [id number] 07/09/2023 HISTORY OF PRESENT ILLNESS: Siobhan is here for her 5 week(s) postoperative visit s/p left AKA I&D and wound vac placement on 06/05/23. Siobhan reports that her pain has been minimal Siobhan reports that her swelling has been minimal Siobhan had been instructed to be nonweight bearing on the left lower extremity. Siobhan has been compliant with her weight bearing restrictions Siobhan has not started therapy yet Siobhan denies fevers and chills and has not had calf pain or shortness of breath In general Siobhan feels that she has been doing well since the surgery Other issues or concerns that Siobhan would like addressed at this visit: she has no other issues or concerns to discuss Review of Systems Surgical Risk Factors: Allergies to Metals or Latex: NO Have you been treated for a blood clot: NO Have you had a history of bleeding disorder: NO Have you had a history of Anesthetic problems: NO Do you have tendency to bruise easily: NO Do you experience prolonged or excessive bleeding from cuts or after surgery: NO General/Constitutional: General: no Cancer: NO Acute/Chronic Infections: NO HEENT/Neck: Problems with theThroat: NO Problems with the Eyes: NO Problems with the Ears: NO Problems with the Nose and Sinuses: NO Endocrine: Problems with Diabetes: NO Problems with Thyroid Disorder: NO Thorax: Problems with the Heart: NO Problems with the Lung: no Cardiovascular: Problems with Circulation: NO Problems with High Blood pressure: NO Gastrointestinal: Problems with Ulcers: NO Problems with the Liver: no Problems with Bowel Habits: NO Genitourinary: Problems with the Genitals: NO Urinary problems: NO Kidney disease or stones: NO Skin: Any general problems: NO Neurologic: Dizziness, blurred vision, headaches, problems with balance : NO Seizures or Stroke: NO Psychiatric: Emotional or Psychological disorders: NO Depression or Anxiety: no PAST MEDICAL HISTORY: 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 ([facility]) 07/27/2020 Asthma Cellulitis Constipation Depression Difficult intubation 12/04/2022 Fibromyalgia GERD (gastroesophageal reflux disease) History of transfusion Hx of right BKA ([facility]) ([facility]) Hypertension Morbidly obese ([facility]) 02/03/2019 BMI 50.52 On home O2 FAY treated with BiPAP Osteoarthritis Osteomyelitis of right foot ([facility]) SCHEDULED FOR THE SURGERY ON 02/11/2019 Pulmonary embolism ([facility]) Seasonal allergies Shortness of breath URSULA (stress urinary incontinence, female) Vertigo Allergies Allergen Reactions Amlodipine Swelling Cefepime Itching Clonazepam Other reaction(s): Other (See Comments) made me sleep & cry Ketamine Lisinopril Swelling Prednisone Other reaction(s): CVA like symptoms Hydromorphone Rash Vancomycin Rash PHYSICAL EXAM: This is an age appropriate appearing female who is alert and oriented x 3. The patient appears wellnourished. The patient is able to verbalize normally and seems to have a good understanding of her situation. Normocephalic, atraumatic Respiratory: No shortness of breath The left Above knee amputation is examined. Skin is warm and dry and ruborous in a dependent position Capillary refill in the AKA is less than 3 seconds. Siobhan is able to actively move the hip The wound has a healthy tissue bed with granulation tissue. No purulence Tenderness is not present on exam Other findings on exam: None Ambulation: Siobhan was evaluated in a wheelchair/gurney today and I did not have her stand or walktoday RADIOGRAPHIC INTERPRETATION: No xrays were obtained or reviewed REVIEW OF RELATED PREVIOUS DOCUMENTATION: No documents related to the current problem(s) were reviewed or no documents were available for review. LABORATORY RESULT INTERPRETATION: No labs were reviewed/No labs available for review DIAGNOSIS: Diagnosis Plan 1. 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 I discussed with Siobhan that her wound appears shallow enough that we can now transition to wet todry dressings and discontinue the vac dressings. We will see Siobhan back in 1 month for a re-check. She was instructed to contact us if she has any questions or concerns in the meantime. Follow up in about 4 weeks (around 08/06/2023) for Post-Op. Electronically signed by CARMELA Ramos [facility] Department of Orthopedic surgery 07/09/2023 5:43 PM Voice recognition was used for portions of this note and although it was reviewed prior to signing some incorrect words or phrases could be present. documented in this [facility]10-03-2023 [facility] 07-02-2023 [facility] per TCC request. Await review and response regarding ability to accept. TCC notified. [facility]09-29-2023 NoteReferral placed to [facility] via [facility] per TCC request. Await review and response regarding ability to accept. TCC notified. [facility]09-29-2023 [facility]09-28-2023 NoteReferral placed [address] [facility] [place] via [facility] per [facility] request. Await review and response regarding ability to accept. [facility] notified. [facility]09-26-2023 [facility]09-08-2023 [facility] 06-08-2023 Nurse Note* Fly Schultz RN - 06/08/2023 4:06 PM EDT Patient ready for discharge. Belongings gathered. Switched to home-going wound vac. RN reviewed AVSand discharge instructions with patient. Patient verbalized understanding with no questions. Patient taken off floor by NA in wheelchair. Discharged to home with R basilic DL PICC. [id number]* Fly Schultz RN - 06/08/2023 4:06 PM EDT Patient ready for discharge. Belongings gathered. Switched to home-going wound vac. RN reviewed AVSand discharge instructions with patient. Patient verbalized understanding with no questions. Patient taken off floor by NA in wheelchair. Discharged to home with R basilic DL PICC. * Joanne Salazar RN - 06/04/2023 6:36 AM EDT Contacted manager acquisition d/t to second line line on pr blowing, asked for a piss line order, updated MDwith the following message, pt currently has an order for Vancomycin IV, she has had 2 lines with infiltration in the last 24 hrs, pt is a very hard stick we have rapid trying for line again now, can we get a picc line consult for pt, her arms are all bruised up and painful to touch. Rapid was able to get a line to run ATB vanco in, 22G L lower right arm. Md stated she can have Picc order for place. documented in this [facility]09-08-2023 Miscellaneous Notes* Care Coordination - Unknown Case Management - 06/08/2023 1:21 PM EDT Patient Choice Patient Name: SIOBHAN HAAS Date of : 1960 All Providers Sent Referral Name: Jhon Wang/[employer] [employer]. Phone: [phone] Address: [address] [facility] [address] [place] [address] Name: [facility]) Phone: [phone] Address: [address] [place] [address] Name: [facility] Address: [address] [place] [address] Name: [facility] Phone: [phone] Address: [address] [place] [address] Name: [facility] Phone: [phone] Address: [address] [place] [address] Name: [facility] Address: [address] [place] [address] Name: [facility] [place] (All Offices) Phone: [phone] Address: [address] [address] Name: [facility] Phone: [phone] Address: [address] [place] [id number] Name: [facility] Address: [address] [facility] [address] [facility] [place] [address] Name: [facility] Address: [address] [place] [address] Name: [facility] Phone: [phone] Address: [address] [facility] [address] [facility] [address] [place] [address] Name: [facility] Central[facility] Intake Phone: [phone] Address: [address] [place] [address] Name: Cornelia Wang (Home Health) Address: [address] [place] [address] [address] [place] [address] * Home Care - Micki Garcia RN - 06/08/2023 1:17 PM EDT [facility] notified of discharge home today. ZAMBRANO to see pt 06/09/2023 and will call to set up appointment. Pt made aware. No other needs voiced by pt. * Care Coordination - Ara Stubbs RN - 06/08/2023 10:56 AM EDT Images from the original note were not included. Care Management Progress Note Patient remains on H6 s/p repeat I&D with VAC placement at [facility]. Discharge [facility]. Awaiting Wound Vac deliver to room. Patient confirms that she has spoketo her insurance company 3rd constitution party payor and that she has transportation home. Confirmed with [employer] entry level account representative that WV will be delivered to H6. Discharge Milestones and Delays Expected Date/Time: 06/08/[address] discharge order Complete med reconciliation Case mgmt discharge readiness Clinical Stability Diagnsotic Workup Expected Discharge History Expected Date/Time Set By Reviewed At 06/08/2023 Midday CHRISTINE Rachel 06/08/2023 9:08 AM 06/08/2023 Midday CHRISTINE Rachel 06/07/2023 9:13 AM 06/07/2023 Midday CHRISTINE Rachel 06/06/2023 9:27 AM 06/07/2023 Midday Beau Comer RN 06/05/2023 7:58 AM 06/07/2023 Midday Beau Comer RN 06/01/2023 8:07 AM 06/03/2023 Midday Ara Stubbs RN 05/31/2023 8:47 AM 06/03/2023 Janessa Nava RN 05/30/2023 7:42 AM 06/03/2023 Farrukh Tim MD 05/29/2023 2:40 PM 06/03/2023 Farrukh Tim MD 05/29/2023 12:53 PM 06/05/2023 CARMELA Ramos 05/29/2023 9:05 AM Length of Stay (Days): 10 GMLOS: 5.5 * Care Coordination - Ara Stubbs RN - 06/07/2023 10:58 AM EDT Images from the original note were not included. Care Management Progress Note Patient remains on H6 s/p repeat I&D with VAC placement at [facility] incision awaiting insurance authorization for Wound Vac. [employer] Medical Attendant informed me: Patient has [employer] which authorization needs to go through a 3rd constitution party processor which will contact the Patient directly for their co-pay. Once processed and Patient agreeable, the WV will need delivered by a driver license examiner. [employer] DMT cannot be used. Informed patient that a entry level account representative from [employer] will call her and to notify her Staff Nurse/TCC once received who will then notify [employer] Medical Attendant to have WV delivered to the floor. OPAT received for home infusion and Home Care/Infusion set up. Patient will need to get daily IV Abx before discharge. [facility] Digital Sales Director aware. Discharge Milestones and Delays Expected Date/Time: 06/08/[address] discharge order Complete med reconciliation Case mgmt discharge readiness Clinical Stability Diagnsotic Workup Expected Discharge History Expected Date/Time Set By Reviewed At 06/08/2023 Midday CHRISTINE Rachel 06/07/2023 9:13 AM 06/07/2023 Midday CHRISTINE Rachel 06/06/2023 9:27 AM 06/07/2023 Midday Beau Comer RN 06/05/2023 7:58 AM 06/07/2023 Midday Beau Comer RN 06/01/2023 8:07 AM 06/03/2023 Midday Ara Stubbs RN 05/31/2023 8:47 AM 06/03/2023 Janessa Nava RN 05/30/2023 7:42 AM 06/03/2023 Farrukh Tim MD 05/29/2023 2:40 PM 06/03/2023 Farrukh Tim MD 05/29/2023 12:53 PM 06/05/2023 CARMELA Ramos 05/29/2023 9:05 AM Length of Stay (Days): 9 GMLOS: 5.5 * Home Care - Micki Garcia RN - 06/06/2023 3:55 PM EDT Start PACC Note Home Health Referral Educated patient on Home Care and services available. Patient offered choice of available HHC and agreeable to SN, PT, OT services with [facility]. Care Types: None Isolation Precautions: No active isolations Social Determinates of Health: Tobacco Use: Medium Risk (06/06/2023) Patient History Smoking Tobacco Use: Former Smokeless Tobacco Use: Never Passive Exposure: Past Social History Substance and Sexual Activity Alcohol Use Not Currently Social History Substance and Sexual Activity Drug Use No Does the patient have any financial resource strain? No Does the patient have any food insecurities? No Does the patient have any housing instabilities? No If any of the above is noted as yes - consider a DAY CARE PROVIDER evaluation once the patient returns home. START PATIENT REGISTRATION INFORMATION Order Information Order Signing Physician: Rusty Mercado MD Service Ordered RN ?: Yes Service Ordered PT ?: Yes Service Ordered OT ?: Yes Service Ordered ST ?: No Service Ordered DAY CARE PROVIDER?:No Service Ordered TIME CLOCK INSPECTOR?: No Following Physician: Dr Rusty Mercado Following Physician Overseeing Physician: NA (Required for Residents only) Agreeable to Follow? Yes Date/Time of Call 06/06/23 3:55 PM, Spoke with: Dr Patel Care Coordination Same Day SOC?: No Primary Care Physician: Oj Maddox Primary Care Physician Primary Care Physician Address: [address] [place] [address] / [facility] [address] Visit Instructions: N/A Service Discharge Location Type: Home with Home Health Care Service Facility Name: N/A Service Floor Facility: N/A Service Room No: N/A Demographics Patient Last Name: Waldo Patient First Name: Siobhan Language/Communication Barrier: N/A Service Address: [address] [facility] Service City: [facility] ST: [place] Service ZIP: [address] Service Other phone numbers: Telephone Information: Emergency Contact: Extended Emergency Contact Information Primary Emergency Contact: RaghavendramomoWillisLuz Marina Relation: Child Secondary Emergency Contact: Dominga Purcell Relation: Sister Admission Information Admit Date: 05/29/2023 Patient status at discharge: Inpatient Admitting Diagnosis 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, initial encounter ([facility]) [S78.112A] 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, initial encounter ([facility]) [S78.112A] Caregiver Information Caregiver First Name: Deacon Caregiver Last Name: Waldo Caregiver Relationship to Patient son Caregiver Caregiver Notes: N/A HITECH [employer] List HIGHTECH: HI TECH - IV Orders: see hard copy order IV Method of Administration: IV Date and Time of Next Dose Due: 06/09/2023 approx 11am Infusion Company: [employer] [facility] Infectious Disease Physician: Dr Cristian Maxwell Teachable Caregiver Teachable Caregiver First Name: Deacon Teachable Caregiver Last Name: Waldo Teachable Caregiver Relationship to Patient: son Teachable Caregiver Teachable Caregiver Notes: N/A Teachable Caregiver available for SOC visit?: Yes Teachable Caregiver agreeable to provide skilled HITECH care per physician's orders?: Yes HIGHTECH: HI TECH - NON-DISP VAC Orders: yes Orders in case of wound Vac failure: yes Comments: N/A Following physician: Dr Mercado Is patient teachable for wet-to-dry dressing change?: Yes Backup Wet-to-Dry dressing at home?: Yes Foam Type: Black Supplies at home?: Yes Date of last vac dressing change: 06/08/2023 Company: [employer]: [facility] - LABS Orders: BMP, Hemogram w/diff, CK to be drawn every week. Send results to [phone]. Following Physician/Facility: Dr Hans LANDA: [facility] - PICC CARE Line and Location: Location: Right basilic Catheter type: Double lumen Catheter size: 5 Fr Lot #: [id number] Trimmed at (cm): 51 Inserted at (cm): 51 Orders: Flush PICC with 10cc NS, administer medication, flush with 10cc NS and end with 5ml heparinflush. Change PICC dressing weekly and PRN. END PATIENT REGISTRATION INFORMATION Pt Home Health goal home COVID Status 1. Do you have any upper respiratory symptoms (cough, SOB, Fever)? No 2. Have you been exposed to anyone with COVID-19 Virus? No Answer only if pending or positive for COVID-19? 1. Agreeable to wear PPE at each visit? N/A 2. Is the hospital supplying them with PPE upon Discharge? N/A Start PACC Summary General Report/ Additional Comments Pt's Left AKA stump with full thickness surgical wound measuring 2 x 8 x 3.5cm deep (with pt holding stump up). Wound bed with red tissues (see photo below) Periwound clear, no erythema or indurationnoted. Small amount of serosang drainage noted in VAC canister. No odor, purulence or active bleeding noted. Wound and periwound cleansed with saline, patted dry and cavilon no sting applied to periwound. 1 piece of black foam applied to wound. Trac pad bridged to anterior aspect of stump. Small piece of coloplast strip paste/Adapt ring used at medial skin crease (at healed incision) to help achieve/maintain wound VAC seal. Wound VAC well sealed at 125 mmHg continuous suction. Discharge Date: 06/08/2023 Referral Source-PACC: (Hospital/Unit): [facility] / -6120/H-[id number] A End PACC Note * Care Coordination - Ara Stubbs RN - 06/06/2023 2:11 PM EDT [facility] insurance authorization signature obtained and faxed for [place] approval. Electronicallysigned by Ara Stubbs RN on 06/06/2023 at 2:12 PM * Care Coordination - Ara Stubbs RN - 06/06/2023 10:50 AM EDT Images from the original note were not included. Care Management Progress Note Patient remains on H6 s/p s/p repeat I&D with VAC placement at [facility]. IV Invanz and Vancomycin, ID following, PICC placed 06/05/23. Discharge plan home with [facility], [facility] insurance authorization started and faxed. Awaiting Surgeon signature, form on the front of the chart. Awaiting ID determination on IV Abx. Will need OPAT completed. Discharge Milestones and Delays Expected Date/Time: 06/07/[address] discharge order Complete med reconciliation Case mgmt discharge readiness Clinical Stability Diagnsotic Workup Expected Discharge History Expected Date/Time Set By Reviewed At 06/07/2023 Midday CHRISTINE Rachel 06/06/2023 9:27 AM 06/07/2023 Midday Beau Comer RN 06/05/2023 7:58 AM 06/07/2023 Midday Beau Comer RN 06/01/2023 8:07 AM 06/03/2023 Midday Ara Stubbs RN 05/31/2023 8:47 AM 06/03/2023 Janessa Nava RN 05/30/2023 7:42 AM 06/03/2023 Farrukh Tim MD 05/29/2023 2:40 PM 06/03/2023 Farrukh Tim MD 05/29/2023 12:53 PM 06/05/2023 CARMELA Ramos 05/29/2023 9:05 AM Length of Stay (Days): 8 GMLOS: 5.5 * Care Plan - Payton Zarate RN - 06/06/2023 8:18 AM EDT Problem: Potential for Compromised Skin Integrity Goal: Skin Integrity is Maintained or Improved Outcome: Progressing Flowsheets (Taken 06/06/2023 08) Skin integrity is maintained or improved: Assess and monitor skin integrity Turn patient Avoid shearing * Perioperative Nursing Note - Gely Yanez RN - 06/05/2023 4:57 PM EDT Patient's son updated by RN at this time that Pt is doing well and will be returning to [facility] shortly. * Op Note - Rusty Mercado MD - 06/05/2023 3:20 PM EDT Pre-operative Diagnosis: Left thigh abscess Post-operative Diagnosis: Same Procedure: #1 Incision and drainage abscess left thigh (Wound dimensions: Length medial to lateral:6 cm, Width anterior to posterior: 2 cm, Depth: 3 cm, #2 placement of VAC dressing left thigh woundless than 50 cm Components used: VAC dressing Anesthesia: general Surgeon: Jess Assistants: Adolfo Tim Estimated Blood Loss: 50ml Complications: None Specimens: None Medications: Siobhan was on preoperative antibiotics and no antibiotics were given in the operatingroom. Operative findings: The left thigh/AKA wound bed appeared free of infection. Good granulation tissue was present throughout the entirety of the wound. No communication with the underlying femur was found and the muscle layer was intact. Due to the nature of the wound it did not appear to be amendable to closure and therefore a VAC dressing was placed with the plan to continue VAC dressing changesat home until the wound is healed by secondary intent. History of present illness: Siobhan is a 62 y.o. female with a history significant for previous left above-knee amputation with wound complications. She presented to the office with ongoing drainage from her most recent incision site. Despite the risks of surgery Siobhan consented to proceed. Operative report: I met with [...] of pain or dysfunction, wound healing complications, and late or chronic pain as a result of the surgical intervention. In addition potentially life threatening complications that can occur at the time of surgery and after surgery were discussed including but not limited to deep vein thrombosis, pulmonary embolism, myocardial infarction, stroke and . I initialed her Left lower extremity and signed her consent form. Siobhan was then brought to the operating room and placed in the supine position on the Operating Room table. Care was taken to identify and pad all bony prominences. A general anesthetic was then given by the anesthesia staff and an endotracheal tube was placed by the anesthesia staff. At all times during the operative procedure the patient's head neck and airwaywere protected by the anesthesia staff. A tourniquet was not utilized for the case. The Left lower extremity was then prepped and draped in the usual orthopedic sterile fashion. A surgical timeout was then performed with the patient's identification, the procedure to be performed being reviewed with the consent form, verification that the patient had received preoperative antibiotics, and verification of the correct surgical side. Everyone in the operating room stopped what they were doing in order to participate in the timeout. This timeout was performed by myself, the circulating room nurse and the anesthesia staff. The patient's ASA was verified by the nurse machine printer and the anesthesia staff. Fire risk was assessed. The VAC dressing had been removed from the open wound site prior to prepping and draping. Incision and drainage of the open wound was performed using a combination of curettes and a rongeur. No signsof active infection were found. A combination of sharp excision utilizing a scalpel, rongeurs and curets were used to excise any nonviable appearing skin and subcutaneous tissue. The deeper fascia overlying the muscle layer was intact. No communication with the underlying femur was found. Once an adequate debridement had been performed and I was comfortable that no additional debridement was necessary the wound was thoroughly irrigated with copious amounts of sterile saline. At this point it was decided to place a VAC dressing within the wound. Black VAC sponge was utilized. The skin surrounding the wound was cleaned and dried and then Caval[place] sponges were used to further prepare the skin and then the skin was covered with plastic dressing.. The piece of sponge that had been cut for the wound was placed within the wound. Plastic dressing was then used to cover the sponge/wound. A [place] of plastic drape the size of a quarter was cut out exposing the underlying sponge material for tract pad placement. A tract pad was then placed over the exposed sponge and the tubing from the tract pad was attached to the VAC machine. The machine was started and a good seal withno leaks was present. Siobhan was then awakened from her anesthetic, transferred to her hospital bed and taken to the recovery room in stable medical condition. Post-operative plan: Additional Surgical Intervention: No further operative intervention needed Weight Bearing Instructions: Siobhan will be nonweight bearing on the left lower extremity. DVT Prophylaxis: Can start/restart chemoprophylaxis from my standpoint Antibiotics: Antibiotic managment per Infectious Disease Elevation: Elevation of the operative extremity is not needed but can be performed if patient is uncomfortable Dressings: Siobhan will need a homegoing VAC for group home wound treatment (NOT A VAC VIA OR OTHER SHORT TERM VAC) . Can start every 48 hours wound VAC changes with plan to continue VAC dressing as an outpatientuntil wound is healed. Follow-up: follow-up as an outpatient in 2 weeks please call [phone] to make an appointment Any questions please page Ortho pager (resident manager acquisition) or call my office at [phone] * Brief Op Note - Farrukh Tim MD - 06/05/2023 3:20 PM EDT Date: 06/05/2023 Location: [facility] OR Name: Siobhan Haas, : 1960, Diagnosis Pre-op Diagnosis * 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, initial encounter ([facility]) [S78.112A] Post-op Diagnosis * 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, initial encounter ([facility]) [S78.112A] Procedures DEBRIDEMENT SKIN, SUBCUTANEOUS TISSUE/MUSCLE/BONE 25589 - MO DEBRIDEMENT BONE MUSCLE &/FASCIA 20 SQ CM/< Surgeons * Rusty Mercado - Primary Procedure Summary Anesthesia: General ASA: IV Estimated Blood Loss: 10 mL Drains: Female External Urinary Catheter (Active) Wall Suction (mmHg) 50 06/04/231944 External Catheter Status In place 06/04/231944 Output (mL) 800 mL 06/05/23 0450 Staff: Fleet Technician: John Neil RN; Noreen Khan RN Physician Clothes Drier Assembler: CARMELA Ramos Scrub Person: Susy Wells RN Findings: Clean wound bed Complications: None; patient tolerated the procedure well. Specimens Collected: No specimens collected during this procedure. Wound Class: Class I: Clean Blood Products: None Prophylactic Antibiotics: Pre-operative antibiotics were not given because the patient is on continuous antibiotics for documented preoperative infection. Post op Plan: -No plan for return to the OR, will definitive VAC therapy to close wound -Sunday VAC changes per wound care, will start VAC changes on Sunday -Will need home-going VAC therapy set up prior to discharge -Received PICC today, antibiotics per infectious disease -APS consult -Nonweightbearing left lower extremity -Ortho primary, page on-call resident with questions or concerns * Care Coordination - Beau Comer RN - 06/05/2023 12:47 PM EDT Plan for RTOR 06/05. TCC to follow. * Care Coordination - Beau Comer RN - 06/01/2023 1:56 PM EDT Images from the original note were not included. Care Management Progress Note Patient remains on H6 s/p L AKA I&D with wound vac application on 05/29 with repeat I&D on 05/31. OR today for repeat I&D today, IV ertapenem, ID following, awaiting culture results. Anticipate PT/OT evals s/p I&D scheduled for 06/05 At this time patient prefers to go home and does not want SNF/Rehab placement. TCC to follow. Discharge Milestones and Delays Expected Date/Time: 06/07/[address] discharge order Complete med reconciliation Case mgmt discharge readiness Clinical Stability Diagnsotic Workup Expected Discharge History Expected Date/Time Set By Reviewed At 06/07/2023 Midday Beau Comer RN 06/01/2023 8:07 AM 06/03/2023 Midday Ara Stubbs RN 05/31/2023 8:47 AM 06/03/2023 Janessa Nava RN 05/30/2023 7:42 AM 06/03/2023 Farrukh Tim MD 05/29/2023 2:40 PM 06/03/2023 Farrukh Tim MD 05/29/2023 12:53 PM 06/05/2023 CARMELA Ramos 05/29/2023 9:05 AM Length of Stay (Days): 3 GMLOS: 5.5 * Home Care - Micki Garcia RN - 05/31/2023 3:52 PM EDT Digital Sales Director following case for Discharge Needs. Checking benefits for possible home IV infusion. Spoke to patient regarding home care needs. PT agreeable if can find an agency to accept referral. Pt agreeable to send multiple referrals in Care port to see what agencies can accept, then pt will review for choice. Pt would like TIME CLOCK INSPECTOR for bathing when h/c is ordered. Pt was asking about obtaining a new motorized wheelchair. Fredo is unable to obtain this piece of equipment and gave name of company and number to follow up with for questions. [employer] [phone] and fax [phone]. Spoke to Melody at [employer]. Per Melody, to possibly qualify, has pt had chair greater than 5 years? Pt states she has NOT had it that long. Also company needs documentation from physicians - medical necessity form, medical documentation proving need for motorized chair, referral and PT evaluation for chair or the company's ATP (wellfield technician) to do evaluation/measurements for chair. Spoke with PACC manager environmental services, Vinh per manager environmental services, this will need handled by pt's PCP as they are responsible for starting this process. PCP would handle the reason for need and working with the DME provider. Followed up with pt and informed. Gave pt name and number of company, so she would have for her records for when she has met the 5 years requirement per insurance. * Perioperative Nursing Note - Isabela Dhaliwal RN - 05/31/2023 2:49 PM EDT Report called to Holly VILLEDA on h6 no questions asked. * Perioperative Nursing Note - Isabela Dhaliwal RN - 05/31/2023 2:47 PM EDT Patient family/visitor updated by RN at this time via phone call * Op Note - Rusty Mercado MD - 05/31/2023 1:04 PM EDT Pre-operative Diagnosis: Left thigh abscess Post-operative Diagnosis: Same Procedure: #1 Incision and drainage abscess left thigh (Wound dimensions: Length medial to lateral:6 cm, Width anterior to posterior: 2 cm, Depth: 3 cm, #2 placement of VAC dressing left thigh woundless than 50 cm Components used: None Anesthesia: general Surgeon: Jess Assistants: Adolfo Tim Estimated Blood Loss: 50ml Complications: None Specimens: A culture was taken from the base of the wound Medications: Siobhan was on preoperative antibiotics and no antibiotics were given in the operatingroom. Operative findings: Serous type fluid was present within the wound site at the distal end of the above-knee amputation site. No communication with the femur was found. The muscle layer overlying the femur was intact. After incision and drainage a VAC vera flow was placed. Plan is to return to the operating room on 05/31/2023 for repeat I&D. History of present illness: Siobhan is a 62 y.o. female with a history significant for previous left above-knee amputation with wound complications. She presented to the office with ongoing drainage from her most recent incision site. Despite the risks of surgery Siobhan consented to proceed. Operative report: I met with [...] of pain or dysfunction, wound healing complications, and late or chronic pain as a result of the surgical intervention. In addition potentially life threatening complications that can occur at the time of surgery and after surgery were discussed including but not limited to deep vein thrombosis, pulmonary embolism, myocardial infarction, stroke and . I initialed her Left lower extremity and signed her consent form. Siobhan was then brought to the operating room and placed in the supine position on the Operating Room table. Care was taken to identify and pad all bony prominences. A general anesthetic was then given by the anesthesia staff and an endotracheal tube was placed by the anesthesia staff. At all times during the operative procedure the patient's head neck and airwaywere protected by the anesthesia staff. A tourniquet was not utilized for the case. The Left lower extremity was then prepped and draped in the usual orthopedic sterile fashion. A surgical timeout was then performed with the patient's identification, the procedure to be performed being reviewed with the consent form, verification that the patient had received preoperative antibiotics, and verification of the correct surgical side. Everyone in the operating room stopped what they were doing in order to participate in the timeout. This timeout was performed by myself, the circulating room nurse and the anesthesia staff. The patient's ASA was verified by the nurse machine printer and the anesthesia staff. Fire risk was assessed. The VAC dressing had been removed from the open wound site prior to prepping and draping. Incision and drainage of the open wound was performed using a combination of curettes and a rongeur. No signsof active infection were found. A combination of sharp excision utilizing a scalpel, rongeurs and curets were used to excise any nonviable appearing skin and subcutaneous tissue. The deeper fascia overlying the muscle layer was intact. No communication with the underlying femur was found. Once an adequate debridement had been performed and I was comfortable that no additional debridement was necessary the wound was thoroughly irrigated with copious amounts of sterile saline. At this point it was decided to place a VAC VeraFlow dressing within the wound. Hill VeraFLow sponge was utilized. The skin surrounding the wound was cleaned and dried and then [place]on sponges were used to further prepare the skin and then the skin was covered with plastic dressing.. The piece of sponge that had been cut for the wound was placed within the wound. Plastic dressing was then used tocover the sponge/wound. A [place] of plastic drape the size of a quarter was cut out exposing the underlying sponge material for tract pad placement. A tract pad was then placed over the exposed sponge and the tubing from the tract pad was attached to the VAC machine. The machine was started and a good seal with no leaks was present. The VeraFlow influx of fluid was then started and 35 cc of fluidfilled the wound. The VAC machine was then set for 35 cc fluid soak for 10 minutes every 3 hours. No leakage was present. Siobhan was then awakened from her anesthetic, transferred to her hospital bed and taken to the recovery room in stable medical condition. Post-operative plan: Additional Surgical Intervention: Plan to return to OR on 06/05 Weight Bearing Instructions: Siobhan will be nonweight bearing on the left lower extremity. DVT Prophylaxis: Can start/restart chemoprophylaxis from my standpoint Antibiotics: Antibiotic managment per Infectious Disease Consults: Consult Infectious Disease for antibiotic management Dressings: Leave VAC in place (DO NOT CHANGE) will change in OR Any questions please page Ortho pager (resident manager acquisition) or call my office at [phone] * Care Coordination - Ara Stubbs RN - 05/31/2023 11:16 AM EDT Images from the original note were not included. Care Management Progress Note Patient remains on H6 s/p L AKA I&D with wound vac application on 05/29 with plan for repeat I&D on 05/31. OR today for repeat I&D today, IV ertapenem, ID following, awaiting culture results. Anticipate PT/OT evals s/p second I&D to assist with dc planning. At this time patient prefers to go home and does not want SNF/Rehab placement. Referral placed to Home Care. Will await therapy evaluations and IV Abx decision. TCC will continue to follow for discharge needs. Discharge Milestones and Delays Expected Date/Time: 06/03/[address] discharge order Complete med reconciliation Case mgmt discharge readiness Clinical Stability Diagnsotic Workup Expected Discharge History Expected Date/Time Set By Reviewed At 06/03/2023 Midday Ara Stubbs RN 05/31/2023 8:47 AM 06/03/2023 Janessa Nava RN 05/30/2023 7:42 AM 06/03/2023 Farrukh Tim MD 05/29/2023 2:40 PM 06/03/2023 Farrukh Tim MD 05/29/2023 12:53 PM 06/05/2023 CARMELA Ramos 05/29/2023 9:05 AM Length of Stay (Days): 2 GMLOS: No GMLOS Documented * Care Coordination - Janessa Nava RN - 05/30/2023 12:32 PM EDT Care Managment Initial Assessment Date: 05/30/2023 Patient Name: Siobhan Haas : 1960 Patient Information Source of Information: Patient Cognition/Language: WFL - Within Functional Limits Permission given to speak with patient entry level account representative/caregiver as indicated: Confirmation of Payer with patient/family: Yes Payer Name: [employer]age [place]: No Confirmation of Primary Care Physician: Confirmed PCP Name: Oj Maddox Seen in last 2 years?: Yes Primary Caregiver: Self If assistance needed, confirmed caregiver ready, willing and able to care for patient at discharge: Confirmed with: Living Arrangements Current Residence: House Number of Floors 2 Number of Entry Steps: (ramp) Bed/Bath Levels: Both first floor Facility: Facility Name: Plan to Return: Lives with: Children (adult son) Support Systems: Children, Family members, Friends/neighbors Activities of Daily Living Ambulation: Assistance Bathing/Dressing: Assistance Elimination/Continence/Toileting: Feeding: Independent Who Assists with Activities of Daily Living: son, daughter Instrumental Activities of Daily Living Prescription Coverage: Yes [facility] Medication Management: Independent Transportation/Shopping: Assistance Provider Transportation/Shopping Assistance Provider Name: son, daughter Transportation Mode: Wheelchair van Needs Assistance with Transportation at Discharge: Yes Meal Preparation: Independent Laundry/Cleaning: Assistance Provider Finances/Bill Paying: Independent Communication: Independent Types of Care Services/Equipment Utilized Care Services: Dialysis Type: Durable Medical Equipment: Hospital Bed, Wheelchair (standard or power), Raised Toilet Seat, ShowerSeat, Other (Comment) (trapeze) Patient's Goal/Discharge Plan Patient expects to be discharged to: pt wants to return home Discharge Planning Actions: Continue to follow Patient's Choice Rights and [employer] and Collaborative Relationships Disclosed as Indicated for Post-Acute Care: Interdisciplinary Team Engagement: Social Work Referral for: Additional Information: 62 yo female admitted to for surgery 05/29/23: I&D of abscess on L AKA with application of wound vac. Pt also has hx of R BKA. Plan to RTOR tomorrow for repeat I&D. Met with pt; explained role of tcc. Pt's adult son lives with her. She is mostly independent adls with her power w/c. She also has a hospital bed, trapeze, shower chair and ramp. No active home care at this time per pt. Pt st ates she really does not want to go to rehab or snf at discharge. She would prefer to go home. Anticipate PT/OT evals s/p second I&D to assist with dc planning. Tcc will contin ue to follow. Janessa Nava RN * Op Note - Rusty Mercado MD - 05/29/2023 11:29 AM EDT Pre-operative Diagnosis: Left thigh abscess Post-operative Diagnosis: Same Procedure: #1 Incision and drainage abscess left thigh (Wound dimensions: Length medial to lateral:6 cm, Width anterior to posterior: 2 cm, Depth: 3 cm, #2 placement of VAC dressing left thigh woundless than 50 cm Components used: None Anesthesia: general Surgeon: Jess Assistants: Adolfo Tim Estimated Blood Loss: 50ml Complications: None Specimens: A culture was taken from the base of the wound Medications: Ancef 2 g IV Operative findings: Serous type fluid was present within the wound site at the distal end of the above-knee amputation site. No communication with the femur was found. The muscle layer overlying the femur was intact. After incision and drainage a VAC vera flow was placed. Plan is to return to the operating room on 05/31/2023 for repeat I&D. History of present illness: Siobhan is a 62 y.o. female with a history significant for previous left above-knee amputation with wound complications. She presented to the office with ongoing drainage from her most recent incision site. Based on the appearance of the wound I recommended surgical intervention. Despite the risks of surgery Siobhan consented to proceed. Operative report: I met with [...] of pain or dysfunction, wound healing complications, and late or chronic pain as a result of the surgical intervention. In addition potentially life threatening complications that can occur at the time of surgery and after surgery were discussed including but not limited to deep vein thrombosis, pulmonary embolism, myocardial infarction, stroke and . I initialed her Left lower extremity and signed her consent form. Siobhan was then brought to the operating room and placed in the supine position on the Operating Room table. Care was taken to identify and pad all bony prominences. A general anesthetic was then given by the anesthesia staff and an endotracheal tube was placed by the anesthesia staff. At all times during the operative procedure the patient's head neck and airwaywere protected by the anesthesia staff. A tourniquet was not utilized for the case. The Left lower extremity was then prepped and draped in the usual orthopedic sterile fashion. A surgical timeout was then performed with the patient's identification, the procedure to be performed being reviewed with the consent form, verification that the patient had received preoperative antibiotics, and verification of the correct surgical side. Everyone in the operating room stopped what they were doing in order to participate in the timeout. This timeout was performed by myself, the circulating room nurse and the anesthesia staff. The patient's ASA was verified by the nurse machine printer and the anesthesia staff. Fire risk was assessed. A longitudinal incision was made overlying the distal thigh wound site. Incision and drainage of the wound was performed. A large amount of serous fluid was drained from the wound site. No signs of active infection were found. A combination of sharp excision utilizing a scalpel, rongeurs and curets were used to excise any nonviable appearing skin and subcutaneous tissue. The deeper fascia overlying the muscle layer was intact. No communication with the underlying femur was found. Once an adequate debridement had been performed and I was comfortable that no additional debridement was necessary the wound was thoroughly irrigated with copious amounts of sterile saline. At this point it was decided to place a VAC VeraFlow dressing within the wound. Hill VeraFLow sponge was utilized. The skin surrounding the wound was cleaned and dried and then [place] sponges were used to further prepare the skin and then the skin was covered with plastic dressing.. The piece of sponge that had been cut for the wound was placed within the wound. Plastic dressing was then used tocover the sponge/wound. A [place] of plastic drape the size of a quarter was cut out exposing the underlying sponge material for tract pad placement. A tract pad was then placed over the exposed sponge and the tubing from the tract pad was attached to the VAC machine. The machine was started and a good seal with no leaks was present. The VeraFlow influx of fluid was then started and 35 cc of fluidfilled the wound. The VAC machine was then set for 35 cc fluid soak for 10 minutes every 3 hours. No leakage was present. Siobhan was then awakened from her anesthetic, transferred to her hospital bed and taken to the recovery room in stable medical condition. Post-operative plan: Additional Surgical Intervention: Plan to return to OR on 05/31 Weight Bearing Instructions: Siobhan will be nonweight bearing on the left lower extremity. 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 Priority Lab ID A Thigh, Left Body Fluid FUNGAL STAIN AEROBIC AND ANAEROBIC CULTURE WITH STAIN Rusty Mercado MD 05/29/23 1207 [id number], [id number], [id number] Description: Left thigh wound Staff: Fleet Technician: Francie Bob RN Physician Clothes Drier Assembler: CARMELA Ramos Scrub Person: Dorina Arauz RN Findings: please see full op note Complications: None; patient tolerated the procedure well. 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 05/29/2023 9:26 AM Wound Class: Class II: Clean-Contaminated Blood Products: None Prophylactic Antibiotics: Procedure appropriate prophylactic antibiotic(s) given within 1 hour of surgical incision (two hours if receiving Vancomycin or flouroquinolone) Post op Plan: RTOR for repeat I&D on 05/31 Add case pending Consent pending Veraflow vac to LLE, do not change, will change in OR Med c/s pending ID c/s pending APS c/s pending NWB LLE Neuro/skin checks Ancef x24H OR cultures pending Ortho 1 , page manager acquisition resident with questions/concerns * Perioperative Nursing Note - Anette Villalobos RN - 05/29/2023 11:26 AM EDT PRE-PROCEDURE ROUNDING COMPLETE. documented in this [facility]09-08-2023 Note* Care Coordination - Unknown Case Management - 06/08/2023 1:21 PM EDT Patient Choice Patient Name: SIOBHAN HAAS Date of : 1960 All Providers Sent Referral Name: Jhon Wang/[facility] [employer], [employer]. Phone: [phone] Address: [facility] [address] [facility] [address] [place] [address] Name: [employer] Referrals - [facility] ([facility]) Phone: [phone] Address: [facility] [address] [place] [address] Name: [facility] Address: [address] [place] [address] Name: [facility] Phone: [phone] Address: [address] [place] [address] Name: [facility] Phone: [phone] Address: [address] [place] [address] Name: [facility] Address: [address] [place] [address], [address] [place] [address] Name: [facility] (All Offices) Phone: [phone] Address: [address] [address] Name: [facility] Phone: [phone] Address: [address] [place] [address] Name: [facility] Address: [address] [facility], [address] [place] [address] Name: [facility] Address: [address] [facility], [address] [place] [address] Name: [facility] - [facility] ([facility]/[place]) Phone: [phone] Address: [address] [facility] [address] [place] [address] Name: [facility] Central[facility] Phone: [phone] Address: [address] [place] [address] Name: Cornelia Wang (Home Health) Address: [address] [place] [address] [id number] Note* Care Coordination - Unknown Case Management - 06/08/2023 1:21 PM EDT Patient Choice Patient Name: SIOBHAN HAAS Date of : 1960 All Providers Sent Referral Name: Jhon Wang/[employer] Phone: [phone] Address: [facility] [address] [facility] [address] [place] [address] Name: [employer] Referrals - [facility] ([facility]) Phone: [phone] Address: [address] [place] [address] Name: [facility] Address: [address] [place] [address] Name: [facility] Phone: [phone] Address: [address] [place] [address] Name: [facility] Phone: [phone] Address: [address] [place] [address] Name: [facility] Address: [address] [facility], [address] [place] [address] Name: [facility] - [facility] (All Offices) Phone: [phone] Address: [address] [address] [address] [facility] Phone: [phone] Address: [address] [place] [address] Name: [facility] Address: [address] [facility], [address] [place] [address] Name: [facility] Address: [address] [facility] [place] [address] Name: [facility] - [facility] Phone: [phone] Address: [address] [facility] [address] [place] [address] Name: [facility] Centralized Intake Phone: [phone] Address: [facility] [place] [address] Name: [facility]elia [facility] (Home Health) Address: [address] [facility] [address] [place] [address] [facility] [id number] Note* Home Care - Micki Garcia RN - 06/08/2023 1:17 PM EDT [facility] notified of discharge home today. JUAN MANUEL to see pt 06/09/2023 and will call to set up appointment. Pt made aware. No other needs voiced by pt. [facility] [id number] Note* Home Care - Micki Garcia RN - 06/08/2023 1:17 PM EDT [facility] notified of discharge home today. JUAN MANUEL to see pt 06/09/2023 and will call to set up appointment. Pt made aware. No other needs voiced by pt. [facility] [id number] History of Present illness Narrative* Nayely Sullivan, PEARL DIVER - 06/08/2023 11:07 AM EDT Physical Therapy Facility/Department: Physical Therapy Daily Treatment Note NAME: Siobhan Haas : 1960 Date of Service: 06/08/2023 Discharge Recommendations: Intermediate Facility PT Equipment Recommendations Equipment Needed: No Assessment Requires PT Follow-Up: Yes Assessment: patient refused transfer to personal power chair. seated retro LOB, heavy UE reliance. continues to state she can manage at home, she will have help. rec further participation/assessment of transfer ability. currently rec skilled PT Performance Deficits/Impairments: Decreased functional mobility , Decreased ADL status, Decreased ROM, Decreased endurance, Decreased balance, Decreased strength, Decreased posture Restrictions Restrictions/Precautions Restrictions/Precautions: Fall Risk, General Precautions, Weight Bearing Required Braces or Orthoses?: No Lower Extremity Weight Bearing Restrictions Left Lower Extremity Weight Bearing: Non Weight Bearing Position Activity Restriction Other position/activity restrictions: PIV, wound vac, purewick, h/o bilat AKA Subjective General Chart Reviewed: Yes Patient Assessed for Rehabilitation Services: Yes Additional Pertinent Hx: R BKA, L AKA, obesity, COPD Response To Previous Treatment: Not applicable Family / Caregiver Present: No Diagnosis: abscess in L AKA site, s/p L thigh(AKA) I&D 05/29, debridement of skin, tissue, and bone 05/31 and 06/05 Follows Commands: Within Functional Limits Subjective Subjective: supine, requesting bedpan. states she doesn't know why therapy keeps coming back when she was told she was released from therapy. Patient Stated Goal: go home Pain Assessment Pain Assessment: No/denies pain Cognition/Orientation Overall Cognitive Status: WFL Overall Orientation Status: Within Functional Limits Objective Bed mobility Rolling to Right: Minimal assistance Supine to Sit: Moderate assistance Sit to Supine: Stand by assistance Scooting: Moderate assistance (EOB) Comment: bedrail use, elevated HOB to achieve EOB Balance Comments: EOB min>supervision with heavy unilat UE reliance, approx 4min sit tolerance Plan Times per Week: 3-5x Plan Weeks: 4 wks Current Treatment Recommendations: Strengthening, ROM, Balance Training, Transfer Training, Functional Mobility Training, Endurance Training, Equipment Evaluation, Education, & procurement, Patient/Caregiver Education & Training, Safety Education & Training, Home Exercise Program, Wheelchair Mobility Training Safety Safety Devices Type of Devices: Call light within reach, Left in bed, No alarms engaged upon entry into room AM-PAC Score AM-PAC Inpatient Mobility Raw Score (No Stairs) : 10 Goals Encounter Problems Encounter Problems (Active) Balance Patient will maintain static sitting balance for 5 minutes with supervision in order to demonstrateimproved postural control and prepare for out of bed mobility. (Progressing) Start: 06/06/23 Expected End: 07/04/23 Patient will maintain dynamic sitting balance for 3 minutes with supervision in order to demonstrate improved postural control and prepare for out of bed mobility. (Progressing) Start: 06/06/23 Expected End: 07/04/23 Mobility Pain - Adult Transfers Patient will perform bed mobility with SBA in order to improve independence and prepare for out of bed mobility. (Progressing) Start: 06/06/23 Expected End: 07/04/23 Patient will complete functional transfer with least restrictive device with min assist in order toprepare for ambulation. (Not Addressed) Start: 06/06/23 Expected End: 07/04/23 Education Education Given To: Patient Education Provided: Goals, PT Role, General Safety, Equipment, Transfer Training Education Method: Verbal Education Outcome: Continued education needed Therapy Time Individual Co-treatment Time In 1010 Time Out 1023 Minutes 13 Timed Code Treatment Minutes: (fa) Nayely Sullivan PTA * Nadja Valentino RN - 06/08/2023 10:20 AM EDT Images from the original note were not included. Wound Care consulted for wound VAC dressing to Left AKA. Pt's current and PMH reviewed. Pt premedicated for pain with oral pain medication, per balance staff inspector, prior to wound VAC dressing change. (Medicated earlier with IV pain medication) Pt gave consent to proceed with dressing change. Wound VAC dressing procedure and frequency explained to pt. Pt verbalized understanding stating she has had wound VAC dressings in the past. Old wound VAC dressing soaked with saline and removed without difficulties from Left AKA stump. Removed 1 piece of black foam. Pt's Left AKA stump with full thickness surgical wound measuring 2 x 8 x 3.5cm deep (with pt holding stump up). Wound bed with red tissues (see photo below) Periwound clear, no erythema or induration noted. Small amount of serosang drain age noted in VAC canister. No odor, purulence or active bleeding noted. Wound and periwound cleansed with saline, patted dry and cavilon no sting applied to periwound. 1 piece of black foam applied to wound. Trac pad bridged to anterior aspect of stump. Small piece of coloplast strip paste/Adapt ring used at medial skin crease (at healed incision) to help achieve/maintain wound VAC seal. Wound VAC well sealed at 125 mmHg continuous suction. Pt tolerated the dressing well. Instructed pt on home wound VAC pump, charging of the pump, frequency of dressing changes, premedicating prior to dressing change, showering (if ok with MD), signs of infection, signs of bleeding andwhat to do (clamp tubing, turn off pump, call MD and go to ED), alternate dressing with saline moist gauze 2x/day (some supplies provided for pt and at bedside) and nutrition to promote healing. Pt verbalized understanding. Instructed balance staff inspector on connecting pt to home wound VAC pump. Verbalized understanding. Discussed home going wound VAC being set up, with Ara BANDA. Wound Care will continue to follow pt for wound VAC dressing changes. Please Vocera, Secure Chat ([facility] Wound VAC group) or page [phone] for any questions or concerns. Ana Valentino RN, CWCN * Maged Wilder MD - 06/08/2023 6:09 AM EDT Orthopedic Progress Note Name: Siobhan Haas Date:06/08/2023 Attending:Rusty Mercado MD Subjective Pt doing ok this morning. Was able to get some sleep. No new concerns about left thigh. Otherwise feeling well. Pain controlled. Understands waiting for home going wound vac. Objective Vitals: 06/06/23 2124 06/07/23 0104 06/07/23 0843 06/07/23 2137 BP: 139/87 127/85 (!) 149/83 BP Location: Left arm Left arm Patient Position: Sitting Lying Pulse: 94 95 83 91 Resp: 18 18 18 Temp: 36.6 C (97.9 F) 36.4 C (97.5 F) 36.5 C (97.7 F) TempSrc: Temporal Temporal Temporal SpO2: 95% 95% 93% 93% Weight: Height: Physical Exam: General: Resting in bed, NAD LLE Dressing/Skin: Wound vac intact over distal thigh stump with good seal, no erythema around vac SILT: Intact about proximal thighSaphenous/Superficial Peroneal/Deep Peroneal/Tibial/Sural distributions Motor: Able to flex left hip Pulses: Stump warm LABS: Recent Labs 06/06/23 0750 WBC 14.3* HGB 11.7 HCT 36.3 PLT 326 Recent Labs 06/06/23 0750 NA 136 K 4.8 CL 102 CO2 26 BUN 26* CREATININE 0.74 CALCIUM 8.9 No results for input(s): INR in the last 72 hours. No results for input(s): SEDRATE, CRP in the last 72 hours. No results for input(s): HCG in the last 72 hours. Assessment Siobhan is a 62 y.o.female s/p repeat I&D left AKA stump nonhealing wound and wound vac application on 06/05 Plan -No plan for return to the OR, will treat definitively with VAC therapy to close wound -Sunday VAC changes per wound care, will start VAC changes on Friday 06/08 -Will need home-going VAC therapy set up prior to discharge -Received PICC , antibiotics per infectious disease -APS consult -Nonweightbearing left lower extremity -Ortho primary, page on-call resident with questions or concerns -Dispo pending wound vac approval Keenan Wilder MD Orthopedic Surgery, PGY5 06/08/23 6:27 AM [phone] * Nayely Sullivan, MANNIE - 06/07/2023 3:09 PM EDT Physical Therapy Att 15:05, pt declined Tx at this time. Stated she was released from PT despite encouragement to participate. * Jose Chávez MD - 06/07/2023 11:08 AM EDT Hospitalist Progress Note 06/07/2023 [phone]: Please secure chat me for patient care issues. [phone]: Please secure chat [facility] Hospitalist for any issues. Subjective: Admit Date: 05/29/2023 PCP: Oj Maddox Room#: [id number]/[id number] A Interval History: 06/04 - feeling well - having issues with IV access - requesting picc line - does have an IV in R armat this time. Bowels working 06/07 Doing well No specific new issues 24HR INTAKE/OUTPUT: Intake/Output Summary (Last 24 hours) at 06/07/2023 1109 Last data filed at 06/06/2023 1720 Gross per 24 hour Intake -- Output 0 ml Net 0 ml 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) 07/27/2020 Asthma Cellulitis Constipation Depression Difficult intubation 12/04/2022 Fibromyalgia GERD (gastroesophageal reflux disease) History of transfusion Hx of right BKA (CMS/HCC) (HCC) Hypertension Morbidly obese ([facility]) 02/03/2019 BMI 50.52 On home O2 FAY treated with BiPAP Osteoarthritis Osteomyelitis of right foot ([facility]) SCHEDULED FOR THE SURGERY ON 02/11/2019 Pulmonary embolism ([facility]) Seasonal allergies Shortness of breath URSULA (stress urinary incontinence, female) Vertigo LABS: CBC: Recent Labs 06/06/23 0750 WBC 14.3* RBC 4.28 HGB 11.7 HCT 36.3 MCV 84.7 RDW 15.1* PLT 326 BMP: Recent Labs 06/06/23 0750 NA 136 K 4.8 CL 102 CO2 26 BUN 26* CREATININE 0.74 GLUCOSE 159* CALCIUM 8.9 ANIONGAP 8 LIVER PROFILE:No results for input(s): AST, [...] the last 72 hours. Objective: Vitals: BP 127/85 Pulse 83 Temp 36.4 C (97.5 F) (Temporal) Resp 18 Ht 5' 7.01 (1.702 m) Wt (!) 320 lb (145 kg) SpO2 93% BMI 50.11 kg/m Pulse Ox: SpO2 Av.3 % Min: 93 % Max: 95 % Physical Exam Constitutional: General: She is not in acute distress. Appearance: She is obese. Cardiovascular: Rate and Rhythm: Normal rate and regular rhythm. Heart sounds: Normal heart sounds. Pulmonary: Breath sounds: Normal breath sounds. Abdominal: Palpations: Abdomen is soft. Musculoskeletal: Comments: Wound VAC in place at left AKA stump site, no drainage noted. Skin: General: Skin is warm. Neurological: Mental Status: She is alert. Medications: lactated Ringer's, 50 mL/hr, Last Rate: 50 mL/hr (06/06/23 1823) acetaminophen, 650 mg, Oral, Q4H amitriptyline, 100 mg, Oral, Nightly citalopram, 20 mg, Oral, Daily DAPTOmycin (Cubicin) 550 mg in sodium chloride 0.9 % 50 mL IVPB, 6 mg/kg (Adjusted), IntraVENous, q24h docusate sodium, 100 mg, Oral, BID enoxaparin, 30 mg, SubCUTAneous, 2 times per day ertapenem, 1,000 mg, IntraVENous, q24h gabapentin, 300 mg, Oral, BID Lidocaine, 1 patch, Topical, Daily mometasone-formoterol, 2 puff, Inhalation, BID montelukast, 10 mg, Oral, Daily pantoprazole, 40 mg, Oral, qAM AC sodium chloride 0.9%, 10 mL, IntraCATHeter, q12h Assessment and Plan SSTI of LLE AKA site-orthopedics following. Repeat I&D on 05/29 with wound VAC application, repeat I&D 05/31 again with wound VAC placement. Planning for another repeat I&D on 06/[address] Mercado. Infectious disease following. Maintain IV daptomycin + ertapenem - Will plan for 6-week total course of therapy; OPAT form written Poor IV access : will order PICC line Debility-PT/OT/case management following. Planning on return to facility on discharge. History of PE/DVT on Eliquis---likely restart on DC, defer to primary service Stable chronic conditions: - History of right foot osteomyelitis s/p right BKA - SONG - COPD on home O2 - History of PE/DVT on Eliquis - Peripheral neuropathy - FAY/OHS on BiPAP - Stress urinary incontinence - Fibromyalgia - GERD - Depression - Vertigo - Morbid obesity -DVT prophylaxis: [x] Lovenox [] Heparin [] SCDs [x] Encourage ambulation [] Already on Anticoagulation -CODE STATUS: Full code Anticipated Discharge - Date -TBD - Location - Skilled Facility - Pending the following -recovery from repeat I&D on 06/05 Total time spent (which include face to face and non face to face encounters) : 37 minutes Extended Emergency Contact Information Primary Emergency Contact: Luz Marina Mueller Relation: Child Secondary Emergency Contact: Dominga Purcell Relation: Sister Jose Chávez MD Division of Hospitalist Medicine [facility] PAGER: Epic chat * Maximino Aceves JD, MD - 06/07/2023 6:13 AM EDT Images from the original note were not included. Ortho Progress Note Patient: Siobhan Haas Date of : 1960 Acct: [id number] PCP: Oj Maddox Date of Admission: 05/29/2023 Date of Service: Pt seen/examined on 06/07/2023 SUBJECTIVE: No issues overnight. Discussed discharge with a vac. Questions answered. OBJECTIVE: General: alert and oriented to person, place and time, well-developed and well- nourished, in no acute distress VITALS: BP 139/87 (BP Location: Left arm, Patient Position: Sitting) Pulse 95 Temp 36.6 C (97.9F) (Temporal) Resp 18 Ht 1.702 m (5' 7.01) Wt (!) 145 kg (320 lb) SpO2 95% BMI 50.11 kg/m MSK exam: LLE -VAC in place over prior AKA wound. Good seal and suction. Blood output present in cannister -Sensation intact to stump -Flex/ext hip intact -BCR to stump Lab Results Component Value Date WBC 14.3 (H) 06/06/2023 HGB 11.7 06/06/2023 HCT 36.3 06/06/2023 PLT 326 06/06/2023 ALT 18 12/12/2022 AST 24 12/12/2022 NA 136 06/06/2023 K 4.8 06/06/2023 CL 102 06/06/2023 CREATININE 0.74 06/06/2023 BUN 26 (H) 06/06/2023 CO2 26 06/06/2023 TSH 2.406 11/20/2022 INR 1.0 05/30/2023 HGBA1C 5.4 11/17/2022 Lab Results Component Value Date RH POS 06/05/2023 ASSESSMENT AND PLAN: This is a 62 y.o. female s/p repeat I&D with VAC placement at MIA incision -No plan for return to the OR, will definitive VAC therapy to close wound -Sunday VAC changes per wound care, will start VAC changes on Friday 06/08 -Will need home-going VAC therapy set up prior to discharge -Received PICC yesterday, antibiotics per infectious disease -APS consult -Nonweightbearing left lower extremity -Ortho primary, page on-call resident with questions or concerns * Cristian Maxwell DO - 06/06/2023 6:37 PM EDT Images from the original note were not included. [facility] - Infectious Diseases Attending Progress Note Subjective: Following for SSTI of LLE AKA site. Pt reports feeling well. Wound VAC in place. Denies f/c, n/v/d, SOB, cough, or abdominal pain. No further complaints at this time. Objective: Vitals: Patient Vitals for the past 24 hrs: BP Temp Temp src Pulse Resp SpO2 06/06/23 0803 (!) 128/97 36.4 C (97.5 F) Temporal 81 16 94 % 06/06/23 0531 120/73 36.4 C (97.5 F) Temporal 84 16 93 % 06/06/23 0035 139/78 (!) 35.4 C (95.7 F) Temporal 80 16 92 % 06/05/23 1954 135/80 36.6 C (97.8 F) Temporal 85 16 96 % Physical Exam Constitutional: General: She is not in acute distress. Appearance: Normal appearance. She is normal weight. She is not ill-appearing, toxic-appearing or diaphoretic. HENT: Head: Normocephalic and atraumatic. Nose: Nose normal. Mouth/Throat: Mouth: Mucous membranes are moist. Pharynx: Oropharynx is clear. No oropharyngeal exudate or posterior oropharyngeal erythema. Eyes: General: No scleral icterus. Extraocular Movements: Extraocular movements intact. Pupils: Pupils are equal, round, and reactive to light. Cardiovascular: Rate and Rhythm: Normal rate and regular rhythm. Pulses: Normal pulses. Heart sounds: Normal heart sounds. No murmur heard. No friction rub. No gallop. Pulmonary: Effort: Pulmonary effort is normal. No respiratory distress. Breath sounds: Normal breath sounds. No wheezing, rhonchi or rales. Comments: Diminished breath sounds b/l Prolonged expiratory phase Abdominal: General: Abdomen is flat. Bowel sounds are normal. Palpations: Abdomen is soft. Tenderness: There is no abdominal tenderness. There is no guarding or rebound. Musculoskeletal: General: Swelling, tenderness, deformity and signs of injury present. Cervical back: Neck supple. Comments: s/p L AKA, R BKA Wound VAC in place on L AKA stump No surrounding erythema or discharge Skin: General: Skin is warm and dry. Capillary Refill: Capillary refill takes less than 2 seconds. Coloration: Skin is not pale. Findings: No erythema, lesion or rash. Neurological: General: No focal deficit present. Mental Status: She is alert. Psychiatric: Mood and Affect: Mood normal. Judgment: Judgment normal. Labs: Lab Results Component Value Date/Time NA 136 06/06/2023 0750 K 4.8 06/06/2023 0750 CL 102 06/06/2023 0750 CO2 26 06/06/2023 0750 BUN 26 (H) 06/06/2023 0750 CREATININE 0.74 06/06/2023 0750 CREATININE 0.70 02/14/2022 0918 GLUCOSE 159 (H) 06/06/2023 0750 CALCIUM 8.9 06/06/2023 0750 PROT 6.3 12/12/2022 0612 BILITOT 0.3 12/12/2022 0612 ALKPHOS 140 (H) 12/12/2022 0612 AST 24 12/12/2022 0612 ALT 18 12/12/2022 0612 PROCAL 0.04 12/04/2022 0149 PROCAL 0.02 11/11/2022 0301 PROCAL 1.77 (H) 01/25/2022 0618 Lab Results Component Value Date/Time WBC 14.3 (H) 06/06/2023 0750 HGB 11.7 06/06/2023 0750 HCT 36.3 06/06/2023 0750 PLT 326 06/06/2023 0750 GRANULOCYTES 66.9 02/14/2022 0918 LYMPHOPCT 10.4 (L) 05/30/2023 010 MONOPCT 3.2 05/30/2023 010 LABEOS 3.5 02/14/2022 0918 BASOPCT 0.3 05/30/2023 010 NEUTROABS 6.0 05/30/2023 010 Micro: 05/22 LLE fluid CXs (+) for Finegoldia magna, MSSA 05/29 L thigh fluid CXs (+) for GPCs Lines/Drains/Airways: 05/29 RUE PIV Radiography/Echo/Other: None Antimicrobials, Start/End Dates: 05/29-05/30 cefazolin 05/30- ertapenem 05/30- vancomycin Impression: Ms. Haas is a 62 y/o F w/ PMH of LLE NF s/p debridement and L AKA, R BKA, COPD/asthma on home O2, prior b/l PE 08/2022 (AC on apixaban), FAY on BIPAP, GERD, HTN, OA, depression, fibromyalgia. She presented to [facility] to the orthopedics service 05/28; she was seen 1w postop by ortho following I&Dof L thigh hematoma. CXs obtained at the time were (+) for Finegoldia magna, MSSA. She was taken for I&D of abscess; CXs (+) for GPC. Previously seen by the ID service for LLE OM. The ID service is consulted for LLE AKA SSTI d/t MSSA, Finegoldia magna. Plan: 1. SSTI of LLE AKA site - Patient presented to orthopedic service d/t L AKA hematoma - s/p I+D; CXs pending; previous CXs (+) for MSSA, Finegoldia - Maintain IV daptomycin + ertapenem - Will plan for 6-week total course of therapy; OPAT form written - No opposition to d/c from ID standpoint 2. Chronic obstructive pulmonary disease- on home O2 3. Obstructive sleep apnea- on BiPAP 4. Prior b/l PE 08/2022- AC on apixaban 5. Hx of R foot OM s/p R BKA 6. Gastroesophageal reflux disease 7. Stress urinary incontinence 8. Hypertension 9. Osteoarthritis 10. Obesity 11. Seasonal allergies 12. Vertigo 13. Asthma 14. Depression 15. Fibromyalgia Recommendations: 1. Maintain IV daptomycin + ertapenem 2. Will plan for 6-week total course of therapy; OPAT form written 3. No opposition to d/c from ID standpoint The ID service will sign off; feel free to call back with any further questions/concerns. Based on diagnoses and management, combination of acute and chronic problems, exacerbations and/or acuity, this visit should be considered to be of moderate complexity. Cristian Maxwell DO [facility] Infectious Diseases Office Tel. [phone] * Oj Thomason [facility] - 06/06/2023 3:16 PM EDT Vancomycin therapy has been discontinued by Cristian Maxwell on 06/06. Thank you for the consult. Pharmacy signing off for vancomycin dosing. Oj Thomason julio, . Date: 06/06/23 Time: 3:15 PM * Corry Vazquez, PT - 06/06/2023 2:35 PM EDT Physical Therapy Facility/Department: Physical Therapy Initial Evaluation NAME: Siobhan Haas : 1960 Date of Service: 06/06/2023 Discharge Recommendations: Intermediate Facility PT Equipment Recommendations Equipment Needed: No Assessment Requires PT Follow-Up: Yes Assessment: 62 y.o. female admitted to [facility] for abscess in L AKA site, s/p L thigh(AKA) I&D 05/29, debridement of skin, tissue, and bone 05/31 and 06/05. She was Max A for rolling and Max A x2 for supine <> sit transfers. Per pt, she was indep with bed mobility and transfers at baseline. She is currently at high risk for falls and unsafe for return home alone. Would recommend SNF at discharge for pt safety. Performance Deficits/Impairments: Decreased functional mobility , Decreased ADL status, Decreased ROM, Decreased endurance, Decreased balance, Decreased strength, Decreased posture Decision Making: Medium Complexity Activity Tolerance Activity Tolerance: Patient limited by fatigue, Patient limited by endurance, Patient limited by cognitive status Patient Diagnosis(es): The primary encounter diagnosis was 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, initial encounter ([facility]). Diagnoses of 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, initial encounter ([facility]), Lack of intravenous access, and Postoperative pain were also pertinent to this visit. 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 ([facility]) (07/27/2020), Asthma, Cellulitis, Constipation, Depression, Difficult intubation (12/04/2022), Fibromyalgia, GERD (gastroesophageal reflux disease), History of transfusion, right BKA ([facility]) ([facility]), Hypertension, Morbidly obese ([facility]) (02/03/2019), On home O2, FAY treated with BiPAP, Osteoarthritis, Osteomyelitis of rightfoot ([facility]), Pulmonary embolism ([facility]), Seasonal allergies, Shortness of breath, URSULA (stress urinary incontinence, female), and Vertigo. She has no past medical history of PONV (postoperative nausea and vomiting) or Prolonged emergence from general anesthesia. has a past surgical history that includes Lipoma resection (Right, 2014); Other surgical history (Left, 11/19/2021); Breast surgery (2006); Other surgical history (09/21/2016); Other surgical history(Right, 03/07/2019); Other surgical history (10/27/2021); Colonoscopy; Wound debridement (Left, 10/28/2021); Joint replacement (Left); Belt abdominoplasty; Foot surgery (Right, 02/11/2019); Other surgical history (07/27/2020); Colonoscopy; Leg Surgery (Left, 01/24/2022); Total knee arthroplasty (Left, 2012); Abscess drainage (Right, 08/07/2020); Ankle surgery (Left, 12/19/2021); Foot surgery (Right, 2018); Foot surgery (Right, 04/08/2019); Other surgical history; [place] tooth extraction; Other s urgical history (Right, 04/02/2019); Incontinence surgery (11/15/2015); Other surgical history (Right, 04/22/2019); Other surgical history (Right, 05/06/2019); orthopedic surgery (Right, 04/01/2019);Foot surgery (Right, 04/24/2019); Foot surgery (Left, 08/04/2021); Hysterectomy (1996); Tonsillectom y; Incision and drainage of wound (Left, 11/21/2022); Amputation (Left, 12/2022); and Knee debridement (Left, 06/05/2023). Restrictions Restrictions/Precautions Restrictions/Precautions: Fall Risk, General Precautions, Weight Bearing Required Braces or Orthoses?: No Lower Extremity Weight Bearing Restrictions Left Lower Extremity Weight Bearing: Non Weight Bearing Position Activity Restriction Other position/activity restrictions: PIV, wound vac, purewick Vision/Hearing Vision: Within Functional Limits Hearing: Functional/adequate for paticipation in therapy Cognition/Orientation Overall Cognitive Status: Exceptions Safety Judgement: Decreased awareness of need for assistance, Decreased awareness of need for safety Insights: Decreased awareness of deficits Cognition Comment: lacking insight into deficits and need for assist Overall Orientation Status: Within Normal Limits Subjective General Chart Reviewed: Yes Patient Assessed for Rehabilitation Services: Yes Additional Pertinent Hx: R BKA, L AKA, obesity, COPD Response To Previous Treatment: Not applicable Family / Caregiver Present: No Diagnosis: abscess in L AKA site, s/p L thigh(AKA) I&D 05/29, debridement of skin, tissue, and bone 05/31 and 06/05 Follows Commands: Within Functional Limits Subjective Subjective: pt supine in bed; required encouragement but agreeable to PT session. denies pain Patient Stated Goal: to go home and not do therapy Social/Functional History Social/Functional History Lives With: Alone Type of Home: House Home Layout: One level Home Equipment: Wheelchair-electric ADL Assistance: Independent Ambulation Assistance: Non-ambulatory Transfer Assistance: Independent Additional Comments: hesitant to disclose information. Pt stated she laterally scoots to chair, does not prefer slide board. Objective AROM RLE (degrees) RLE General AROM: hips limited ~50% d/t soft tissue, knee WFL AROM LLE (degrees) LLE General AROM: hips limited ~50% d/t soft tissue, Strength RLE Comment: 2/5 Strength LLE Comment: 2/5 Bed mobility Rolling to Left: Maximum assistance Rolling to Right: Maximum assistance Supine to Sit: Maximum assistance, 2 Person assistance Sit to Supine: Maximum assistance, 2 Person assistance Comment: rolling L <> R for bedding change, Max A with second assist for bedding change and pericare. Max A x2 getting to EOB for trunk and BLE assist, HOB elevated and use of bed rails. Poor tolerance to sitting. Max A x1 to maintain trunk support with pt having unilateral UE support on bed Transfers Sit to Stand: Unable to assess Stand to sit: Unable to assess Ambulation Ambulation: No Balance Posture: Poor Sitting - Static: Poor Sitting - Dynamic: Poor Plan Times per Week: 3-5x Plan Weeks: 4 wks Current Treatment Recommendations: Strengthening, ROM, Balance Training, Transfer Training, Functional Mobility Training, Endurance Training, Equipment Evaluation, Education, & procurement, Patient/Caregiver Education & Training, Safety Education & Training, Home Exercise Program, Wheelchair Mobility Training Safety Safety Devices Safety Devices in Place: Yes Type of Devices: All fall risk precautions in place, Call light within reach, Left in bed, Patient at risk for falls, Nurse notified Restraints Restraints Initially in Place: No AM-PAC Score AM-PAC Inpatient Mobility Raw Score (No Stairs) : 7 Goals Encounter Problems Encounter Problems (Active) Balance Patient will maintain static sitting balance for 5 minutes with supervision in order to demonstrateimproved postural control and prepare for out of bed mobility. Start: 06/06/23 Expected End: 07/04/23 Patient will maintain dynamic sitting balance for 3 minutes with supervision in order to demonstrate improved postural control and prepare for out of bed mobility. Start: 06/06/23 Expected End: 07/04/23 Mobility Pain - Adult Transfers Patient will perform bed mobility with SBA in order to improve independence and prepare for out of bed mobility. Start: 06/06/23 Expected End: 07/04/23 Patient will complete functional transfer with least restrictive device with min assist in order toprepare for ambulation. Start: 06/06/23 Expected End: 07/04/23 Education Education Given To: Patient Education Provided: PT Role, General Safety, Plan of Care, Transfer Training, Equipment Education Method: Verbal Barriers to Learning: Cognition Education Outcome: Continued education needed Therapy Time Individual Co-treatment Time In 919 Time Out 934 Minutes 15 Timed Code Treatment Minutes: (mod eval) This therapist was wearing an appropriate mask, goggles, and gloves for entire patient encounter. Corry Vazquez, PT * Anette Watts, RD - 06/06/2023 1:37 PM EDT Nutrition Assessment Type and Reason for Visit: Reassess Nutrition Recommendations/Plan: Continue with regular diet as tolerated Per MNT protocol discontinue Ensure Max ONS. Patient consuming own Premier Protein shakes BID. Recommend document po intake in nursing flow sheets RD continue to monitor overall nutritional status and follow up weekly Malnutrition Assessment: Malnutrition Status: No malnutrition Context: Acute Illness Nutrition Assessment: 62 y.o. female pmhx of depression, cellulitis, left AKA, right BKA, GERD, fibromyalgia, osteoarthritis, morbid obesity, HTN, pulmonary embolism. Patient has had recurrent hematomas of the left lower extremity. Ortho is following. She underwent L AKA I&D with wound vac application on 05/29 and plan for repeat I&D on 05/31.No plan for return to the OR, will definitive VAC therapy to close woun d. Received PICC yesterday, antibiotics per infectious disease. Patient reports she is tolerating regular diet and consuming >75% of meals. Does not like the Ensure Max and had someone bring in her own Premier Protein drinks. Reports she is drinking 2 Premier drinks per day. Estimated Daily Nutrient Needs: Energy Requirements Based On: Kcal/kg Weight Used for Energy Requirements: Adjusted Weight for Energy Calculation (kg): 52 kg Total Energy Requirements (kcals/day): 0190-0358 kcals per day (25-30) Weight Used for Protein Requirements: Adjusted Weight in Kg Used for Protein Requirements: 52 kg Estimated Total Protein (g/day): 62-78 gm per day (1.2-1.5) Estimated Daily Total Fluid (ml/day): Per MD Nutrition Related Findings: +bowel sounds; LLE non-pitting edema; BM 06/15; +wound vac; -I&O; Rudi 16 Wound Type: Wound Vac, Surgical Incision Current Nutrition Therapies: Adult diet Regular Current Oral Intake Average Meal Intake: 76-100% (06/06) Average Supplements Intake: Refusing to take (patient dislikes Ensure Max and drinking own Premier Protein) Anthropometric Measures: Height: 170.2 cm (5' 7.01) Current Body Weight: 161 kg (355 lb) (05/30/23) Weight Source: Bed Scale (RD removed blankets and wound vac apparatus from bed) Admission Body Weight: 145 kg (319 lb 10.7 oz) (stated on 05/29/23) [place] Body Weight (lbs) (Calculated): 135 lbs [place] Body Weight (Kg) (Calculated): 61 kg % [place] Body Weight (Calculated): 263 % BMI (kg/m2) (Calculated): 55.6 Weight Adjustment For: Amputation % Weight Adjustment: 5.9 - BKA, 10.1 - AKA Total Adjusted Percentage (Calculated): 16 Adjusted [place] Body Weight (lbs) (Calculated): 113.4 lbs Adjusted [place] Body Weight (kg) (Calculated): 51.55 kg Adjusted BMI (kg/m2) (Calculated): 64.5 BMI Categories: Obese Class 3 (BMI 40.0 or greater) Nutrition Interventions: Nutrition Education/Counseling: No recommendation at this time Coordination of Nutrition Care: Continue to monitor while inpatient Plan of Care discussed with: patient Goals: Previous Goal Met: Progressing toward Goal(s) Goals: PO intake 50% or greater, by next RD assessment Nutrition Monitoring and Evaluation: Behavioral-Environmental Outcomes: None Identified Food/Nutrient Intake Outcomes: Food and Nutrient Intake Physical Signs/Symptoms Outcomes: Biochemical Data, GI Status, Fluid Status or Edema, Skin, Weight Discharge Planning: Too soon to determine Anette Watts MS RD LD Contact: [employer] or *[phone] * Zoë Perdomo OT - 06/06/2023 10:53 AM EDT Images from the original note were not included. Occupational Therapy OCCUPATIONAL THERAPY [facility] Initial Evaluation Name/MRN: Siobhan Haas ([id number]) Evaluation Date: 06/06/2023 Date of : 1960 Admission Date: 05/29/2023 8:37 AM Age: 62 y.o. Room/Bed: H-6120/H-6120 A Discharge Recommendation: SNF Equipment Needed: TBD at next level of care Assessment IMPRESSION: OT eval completed. Pt with h/o right BKA and recent left AKA now with wound vac to leftresidual limb. All activity limited to bed level x 1-2 person assist and balance not adequate to attempt OOB transfers. Not safe to return home. Recommending SNF at current function. Performance Deficits /Impairments: Decreased Functional Mobility, Decreased ADL status, Decreased Strength, Decreased Safety Awareness, Decreased Cognition, Decreased Endurance, Decreased Balance, and Decreased High Level ADLs Prognosis: Fair Decision Making: Medium Complexity Subjective Pt is reluctant to OT, agreeable with encouragement. C/o bilateral chronic shoulder pain due to overuse. 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 ([facility]) 07/27/2020 Asthma Cellulitis Constipation Depression Difficult intubation 12/04/2022 Fibromyalgia GERD (gastroesophageal reflux disease) History of transfusion Hx of right BKA ([facility]) ([facility]) Hypertension Morbidly obese ([facility]) 02/03/2019 BMI 50.52 On home O2 FAY treated with BiPAP Osteoarthritis Osteomyelitis of right foot ([facility]) SCHEDULED FOR THE SURGERY ON 02/11/2019 Pulmonary embolism ([facility]) Seasonal allergies Shortness of breath URSULA (stress urinary incontinence, female) Vertigo Past Surgical History: Past Surgical History: Procedure Laterality Date ABCESS DRAINAGE Right 08/07/2020 I&D of right BKA hematoma AMPUTATION Left 12/2022 ANKLE SURGERY Left 12/19/2021 ankle I and D with placement of wound vac - alyssa [place] ABDOMINOPLASTY BREAST SURGERY 2006 and abdomin removal for excess COLONOSCOPY COLONOSCOPY EXTREMITY SURGERY Left 01/24/2022 debridement necrotizing fasciitis LLE, wound vac FOOT SURGERY Right 02/11/2019 FOOT SURGERY Right 2019 IN [place] FOOT SURGERY Right 04/08/2019 I&D right foot with antibiotic spacer FOOT SURGERY Right 04/24/2019 I&D;, external fixator FOOT SURGERY Left 08/04/2021 peroneus longus tenolysis - Dr Gamino HYSTERECTOMY 1997 INCISION AND DRAINAGE OF WOUND Left 11/21/2022 LLE INCONTINENCE SURGERY 11/15/2015 synthetic mid urethral sling,cystoscopy JOINT REPLACEMENT Left TKR KNEE DEBRIDEMENT Left 06/05/2023 DEBRIDEMENT SKIN, SUBCUTANEOUS TISSUE/MUSCLE/BONE - Left LIPOMA RESECTION Right 2015 shoulder ORTHOPEDIC SURGERY [...] Right 05/06/2019 Right Below Knee Amputation (CPT 07661), #2 Excisional debridement right iliac crest (wound 7 cm length, 3 cm width, 7 cm depth) TONSILLECTOMY (HISTORICAL) TOTAL KNEE ARTHROPLASTY Left 2012 ARTHROSCOPY FIRST AND KNEE REPLACED WISDOM TOOTH EXTRACTION WOUND DEBRIDEMENT Left 10/28/2021 irrigation and debridment [facility] Admission Diagnosis: Patient Active Problem List Diagnosis Date Noted 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, initial encounter ([facility]) 05/29/2023 Cellulitis of left lower extremity 12/03/2022 Superficial venous thrombosis of left upper extremity 11/24/2022 HLD (hyperlipidemia) 11/14/2022 Surgical wound infection 11/10/2022 PE (pulmonary thromboembolism) ([facility]) 10/31/2022 Stump pain ([facility]) 10/30/2022 Abrasion of lower leg with infection, initial encounter 10/30/2022 Lymphedema 09/08/2022 Necrotizing soft tissue infection 01/24/2022 Left leg cellulitis 01/21/2022 Dehiscence of closure of skin, sequela 11/17/2021 [facility] (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 antibiotics 10/28/2021 Infected wound 10/26/2021 Superficial incisional surgical site infection 09/26/2021 Cellulitis of lower leg 09/24/2021 Depressive disorder 09/24/2021 HTN (hypertension) 09/24/2021 Pansystolic murmur 09/24/2021 Chest wall pain 09/24/2021 Pain from implanted hardware 09/24/2021 Obstructive sleep apnea syndrome 09/24/2021 Chronic obstructive lung disease (HCC) 09/24/2021 Morbid obesity ([facility]) 09/24/2021 Migraine headache 09/24/2021 Vitamin D deficiency 09/24/2021 Viral upper respiratory tract infection 09/24/2021 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[facility]) 09/24/2021 Swelling of left lower extremity 09/24/2021 Shortness of breath 09/24/2021 Seasonal allergies 09/24/2021 Rheumatoid arthritis ([facility]) 09/24/2021 Restless legs syndrome 09/24/2021 Anxiety 09/24/2021 Arthritis of right subtalar joint 09/24/2021 Attention deficit disorder of adult with hyperactivity 09/24/2021 Benign essential hypertension 09/24/2021 Bronchospasm 09/24/2021 Contusion of knee 09/24/2021 Edema of lower extremity 09/24/2021 Impaired fasting glucose 09/24/2021 History of tonsillectomy 09/24/2021 Chronic knee pain after total replacement of left knee joint 09/24/2021 History of hysterectomy 09/24/2021 Fibromyositis 09/24/2021 Increased body mass index (BMI) 09/24/2021 Gastroesophageal reflux disease 09/24/2021 Hiatal hernia 09/24/2021 Cellulitis of right foot 09/24/2021 Tear of peroneal tendon 08/04/2021 History of right below knee amputation ([facility]) 03/03/2021 Callosity 03/03/2021 Acquired deformity of left toe 01/21/2021 Weakness of left lower extremity 01/21/2021 BKA stump complication ([facility]) 08/17/2020 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 ([facility]) 07/27/2020 MSSA (methicillin susceptible Staphylococcus aureus) infection 05/04/2019 Osteomyelitis ([facility]) 05/03/2019 Cellulitis 05/03/2019 Right foot infection 04/20/2019 Right foot pain 04/08/2019 Hematoma 04/01/2019 Open wound of right foot 03/14/2019 Hardware complicating wound infection (CMS/HCC) ([facility]) 03/07/2019 Postoperative pain 03/07/2019 Post-op pain 03/06/2019 Osteomyelitis of right foot ([facility]) 02/11/2019 Back pain 10/21/2015 Hemorrhage of rectum and anus 10/21/2015 Asthma 10/21/2015 Asthma with acute exacerbation 10/21/2015 Medical Precautions: No active isolations Proper PPE donned/doffed in accordance with facility standards. Precautions/Restrictions: Left LE Weight Bearing: Non-Weight Bearing Wound vac left residual limb; purewick Family/Caregiver Present: none Overall Cognitive Status: Lacking insight into deficits. Overall Orientation Status: Oriented to Place, Oriented to Situation, and Oriented to Person Social/Functional History Lives With: Family Type of Home: single family home Home Layout: Single Level Home Home Access: Ramped Entrance Bathroom Shower/Tub: Walk in Shower Toilet: bedside commode Home Equipment: wheelchair - electric Homemaking Responsibilities: Needs Assist Receives Help From: Family PLOF: Above information from previous OT eval. Pt did not disclose much information when prompted. ADL Assistance: Independent Ambulation Assistance: Non-Ambulatory Transfer Assistance: Independent and Reports she laterally scoots for transfers. Does not prefer slide board. Objective ADLs Toileting: Dependent, bed level Upper Extremity Assessment AROM: WFL PROM: WFL Strength: WFL Coordination: WFL Tone: WFL Sensation: WFL Transfers/Mobility Supine to sit: Max Assist, x2 Person Assist Sit to supine: Max Assist, x2 Person Assist Rolling to right: Max Assist Rolling to left: Max Assist Scooting: Max Assist, x2 Person Assist Mod assist static sitting balance improving to min assist at times but unable to maintain due to retrobalance and right lateral leaning. Limited tolerance. Self-terminating after ~1 minute. AM-PAC AM-PAC Inpatient Daily Activity Raw Score: 18 ADL Inpatient CMS G-Code Modifier: CK Plan Pt would benefit from skilled acute OT services to address Strengthening, ROM, Balance Training, Endurance Training, Safety Education and Training, Patient/Caregiver Training, Equipment Evaluation/Education, Positioning, and Self-Care/ADL Training. Frequency: 1-3x/week for 4 weeks Barriers: Unrealistic expectations Prognosis: fair Safety/Education Safety Safety Devices in place: call light within reach and left in bed Restraints: N/A Education Education Given To: patient Education Provided: OT Role and Plan of Care Education Method: Verbal Barriers to Learning: Cognition Education Outcome: Verbalized Understanding Goals Patient Stated Goal: Return home Encounter Problems Encounter Problems (Active) Balance Dynamic balance EOB supervision in prep for ADLs. Start: 06/06/23 Expected End: 07/04/23 Grooming Grooming setup. Start: 06/06/23 Expected End: 07/04/23 Toileting Patient will complete toileting tasks with mod assist. Start: 06/06/23 Expected End: 07/04/23 Toilet transfer to drop arm C mod assist. Start: 06/06/23 Expected End: 07/04/23 Therapy Time Individual Co-treatment Time In 920 Time Out 0936 Minutes 15 Patient's Occupational Therapy Plan of Care supervision is transferred to a [facility] Occupational Therapist. Goals and/or treatment plan was established in collaboration with patient/family/other representatives. Zoë Perdomo OTR/L * Vane Cortez RPh - 06/06/2023 8:36 AM EDT Pharmacy Managed Vancomycin Dosing Service Consult Note Continuation of Therapy Recent Labs 06/04/23 0251 06/06/23 0750 BUN 22* 26* CREATININE 0.67 0.74 Updated InsightRx: [x] doses administered [x] SCr [] random level Current regimen vancomycin 1500 mg every 12 hours, predicted AUC = 464 mg/L*hr (goal 400-600 mg/L*hr) Assessment/Plan: Continue VAC therapy with plan for home antibiotics. Predicted AUC is therapeutic. Continue to monitor renal function. Regimen: 1500 mg IV every 12 hours. Exposure target: AUC24 (range)400-600 mg/L.hr AUC24,ss: 464 mg/L.hr Probability of AUC24 > 400: 91 % Ctrough,ss: 14.8 mg/L Probability of Ctrough,ss > 20: 8 % Probability of nephrotoxicity (Lodise SOFIA 2008): 10 % Thank-you for the consult. Vane Cortez RP, PharmD Available via Secure Chat/[employer] * Balaji Patel MD - 06/06/2023 5:34 AM EDT Images from the original note were not included. Ortho Progress Note Patient: Siobhan Haas Date of : 1960 Acct: [id number] PCP: Oj Maddox Date of Admission: 05/29/2023 Date of Service: Pt seen/examined on 06/06/2023 SUBJECTIVE: Patient seen this morning, resting comfortably in bed. States her pain is well controlled. No trouble voiding. Has been sitting up to the edge of bed, but has been compliant with NWB LLE status. Denies fever/chills. Denies CP/SOB. Denies new numbness/tingling/weakness. VAC in place holding good suction OBJECTIVE: General: alert and oriented to person, place and time, well-developed and well- nourished, in no acute distress VITALS: BP 120/73 (BP Location: Left arm, Patient Position: Sitting) Pulse 84 Temp 36.4 C (97.5F) (Temporal) Resp 16 Ht 1.702 m (5' 7.01) Wt (!) 145 kg (320 lb) SpO2 93% BMI 50.11 kg/m MSK exam: LLE -VAC in place over prior AKA wound. Good seal and suction. Bloody/brown output present in cannister -No changes in sensation proximal to AKA Lab Results Component Value Date WBC 9.4 06/04/2023 HGB 11.3 (L) 06/04/2023 HCT 35.2 06/04/2023 PLT 317 06/04/2023 ALT 18 12/12/2022 AST 24 12/12/2022 NA 137 06/04/2023 K 3.9 06/04/2023 CL 105 06/04/2023 CREATININE 0.67 06/04/2023 BUN 22 (H) 06/04/2023 CO2 25 06/04/2023 TSH 2.406 11/20/2022 INR 1.0 05/30/2023 HGBA1C 5.4 11/17/2022 Lab Results Component Value Date RH POS 06/05/2023 ASSESSMENT AND PLAN: This is a 62 y.o. female s/p repeat I&D with VAC placement at AKA incision -No plan for return to the OR, will definitive VAC therapy to close wound -Sunday VAC changes per wound care, will start VAC changes on Sunday -Will need home-going VAC therapy set up prior to discharge -Received PICC yesterday, antibiotics per infectious disease -APS consult -Nonweightbearing left lower extremity -Ortho primary, page on-call resident with questions or concerns Balaji Patel M.D. Orthopedic Surgery PGY-1 06/06/2023 * Krysten Camacho RRT - 06/06/2023 12:43 AM EDT Patient places self on home pap unit * Zoë Perdomo OT - 06/05/2023 1:30 PM EDT Occupational Therapy OT orders received. Pt having surgery today. Will follow up post-op. Zoë Perdomo OTR/L * Corry Vazquez, PT - 06/05/2023 7:44 AM EDT Physical Therapy PT orders received and chart reviewed. Per ortho note, s/p L AKA I&D with wound vac application on 05/29, rpt I&D wvac 05/31. RTOR for repeat I&D today 06/[address] Mercado. Will hold and attempt following surgery. Corry Vazquez PT * Teresa Ann MD - 06/05/2023 6:11 AM EDT Department of Orthopedic Surgery Progress Note SUBJECTIVE: No issues, resting comfortably, WV working well. OBJECTIVE: General: alert and oriented to person, place and time, well-developed and well- nourished, in no acute distress, denies chest pain and shortness of breath VITALS: BP (!) 140/85 (BP Location: Left arm, Patient Position: Lying) Pulse 92 Temp 36.3 C (97.4 F) (Temporal) Resp 20 Ht 1.702 m (5' 7.01) Wt (!) 145 kg (320 lb) SpO2 94% BMI 50.11 kg/m MSK exam: Left LE: Wound vac C/D/I with intact suction SILT to stump Motor +Hip flexion Extremity is warm and well perfused, BCR <2s Labs: Type and Screen: Lab Results Component Value Date RH POS 06/05/2023 INR: No results found for: INR CRP: No results found for: CRP ESR: No results found for: SEDRATE ASSESSMENT AND PLAN: This is a 62 y.o. female s/p L AKA I&D with wound vac application on 05/29,rpt I&D wvac 05/31 RTOR for repeat I&D today 06/[address] Mercado Consented NPO Veraflow vac to LLE, do not change, will change in OR Med c/s ID c/s - abx per ID APS c/s NWB LLE Neuro/skin checks OR cultures pending (+GPCs from 05/29, 05/31 cx NGTD) Ortho 1 , page manager acquisition resident with questions/concerns Teresa Ann MD Orthopaedic Surgery, PGY4 [facility] [phone] * Ed Tom MD - 06/04/2023 11:23 AM EDT Hospitalist Progress Note 06/04/2023 [phone]: Please secure chat me for patient care issues. [phone]: Please secure chat [facility] Hospitalist for any issues. Subjective: Admit Date: 05/29/2023 PCP: Oj Maddox Room#: [id number] Interval History: 06/04 - feeling well - having issues with IV access - requesting picc line - does have an IV in R armat this time. 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7 11.8 11.3* HCT 36.8 36.6 35.2 MCV 86.0 83.5 85.1 RDW 15.2* 15.1* 15.2* PLT 177 338 317 BMP: Recent Labs 06/02/23 10506/03/23 0542 06/04/23 0251 NA -- 138 137 K -- 4.1 3.9 CL -- 105 105 CO2 -- 24 25 BUN -- 21* 22* CREATININE 0.73 0.68 0.67 GLUCOSE -- 89 104* CALCIUM -- 8.5 8.3* ANIONGAP -- 9 7 LIVER PROFILE:No results for input(s): AST, [...] the last 72 hours. Objective: Vitals: BP (!) 156/76 (BP Location: Right arm, Patient Position: Lying) Pulse 88 Temp 36.7 C (98.1 F) (Temporal) Resp 20 Ht 5' 7.01 (1.702 m) Wt (!) 320 lb (145 kg) SpO2 95% BMI 50.11 kg/m Pulse Ox: SpO2 Av % Min: 95 % Max: 95 % Physical Exam Constitutional: General: She is not in acute distress. Appearance: She is obese. Cardiovascular: Rate and Rhythm: Normal rate and regular rhythm. Pulses: Normal pulses. Heart sounds: Normal heart sounds. Pulmonary: Effort: Pulmonary effort is normal. Breath sounds: Normal breath sounds. Abdominal: General: Abdomen is flat. Palpations: Abdomen is soft. Musculoskeletal: Comments: Wound VAC in place at left AKA stump site, no drainage noted. Skin: General: Skin is warm and dry. Neurological: Mental Status: She is alert. Medications: lactated Ringer's, 50 mL/hr, Last Rate: Stopped (05/31/23 1542) acetaminophen, 650 mg, Oral, Q4H amitriptyline, 100 mg, Oral, Nightly citalopram, 20 mg, Oral, Daily docusate sodium, 100 mg, Oral, BID enoxaparin, 30 mg, SubCUTAneous, 2 times per day ertapenem, 1,000 mg, IntraVENous, q24h gabapentin, 300 mg, Oral, BID Lidocaine, 1 patch, Topical, Daily mometasone-formoterol, 2 puff, Inhalation, BID montelukast, 10 mg, Oral, Daily pantoprazole, 40 mg, Oral, qAM AC vancomycin, 1,500 mg, IntraVENous, q12h Assessment and Plan SSTI of LLE AKA site-orthopedics following. Repeat I&D on 05/29 with wound VAC application, repeat I&D 05/31 again with wound VAC placement. Planning for another repeat I&D on 06/[address] Mercado. Infectious disease following. Current cultures pending. Previous cultures positive for MSSA, Finegoldia. Continue ertapenem and vancomycin, will adjust as needed based on cultures. Poor IV access : will order PICC line Debility-PT/OT/case management following. Planning on return to facility on discharge. History of PE/DVT on Eliquis-holding home Eliquis with plan for repeat I&D on 06/05. Continue Lovenox for DVT prophylaxis. Stable chronic conditions: - History of right foot osteomyelitis s/p right BKA - SONG - COPD on home O2 - History of PE/DVT on Eliquis - Peripheral neuropathy - FAY/OHS on BiPAP - Stress urinary incontinence - Fibromyalgia - GERD - Depression - Vertigo - Morbid obesity -DVT prophylaxis: [x] Lovenox [] Heparin [] SCDs [x] Encourage ambulation [] Already on Anticoagulation -CODE STATUS: Full code Anticipated Discharge - Date -TBD - Location - Skilled Facility - Pending the following -recovery from repeat I&D on 06/05 Total time spent (which include face to face and non face to face encounters) : 38 minutes Extended Emergency Contact Information Primary Emergency Contact: Luz Marina Mueller Relation: Child Secondary Emergency Contact: Dominga Purcell Relation: Sister Ed Tom MD Division of Hospitalist Medicine [facility] PAGER: Epic chat * Rani Love MD - 06/04/2023 9:03 AM EDT Department of Orthopedic Surgery Progress Note SUBJECTIVE: No issues. WV working well. OBJECTIVE: General: alert and oriented to person, place and time, well-developed and well- nourished, in no acute distress, denies chest pain and shortness of breath VITALS: BP (!) 141/75 Pulse 93 Temp (!) 35.6 C (96.1 F) (Temporal) Resp 20 Ht 1.702 m (5' 7.01) Wt (!) 145 kg (320 lb) SpO2 95% BMI 50.11 kg/m MSK exam: Left LE: Wound vac C/D/I with intact suction SILT to stump Motor +Hip flexion Extremity is warm and well perfused, BCR <2s Labs: Type and Screen: No results found for: RH, LABANTI INR: No results found for: INR CRP: No results found for: CRP ESR: No results found for: SEDRATE ASSESSMENT AND PLAN: This is a 62 y.o. female s/p L AKA I&D with wound vac application on 05/29,rpt I&D wvac 05/31 RTOR for repeat I&D 06/[address] Mercado Consented NPO 06/05@[place] Veraflow vac to LLE, do not change, will change in OR Med c/s ID c/s - abx per ID APS c/s NWB LLE Neuro/skin checks OR cultures pending (+GPCs from 05/29, 05/31 cx NGTD) Ortho 1 , page manager acquisition resident with questions/concerns * Gallo Castillo - 06/03/2023 1:51 PM EDT Hospitalist Progress Note 06/03/[id number]: Please secure chat me for patient care issues. [phone]: Please secure chat [facility] Hospitalist for any issues. Subjective: Admit Date: 05/29/2023 PCP: Oj Maddox Room#: [id number] Interval History: No acute events overnight. Patient seen at bedside this morning. Resting comfortably in bed, conversing normally, no acute distress. Continues to have mild pain at left stump site, similar to yesterday. Pain has been manageable with pain medications. Has been eating and drinking well. Denies any fevers or chills. Denies any other acute concerns. 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 ([facility]) 07/27/2020 Asthma Cellulitis Constipation Depression Difficult intubation 12/04/2022 Fibromyalgia GERD (gastroesophageal reflux disease) History of transfusion Hx of right BKA ([facility]/HCC) (HCC) Hypertension Morbidly obese ([facility]) 02/03/2019 BMI 50.52 On home O2 FAY treated with BiPAP Osteoarthritis Osteomyelitis of right foot ([facility]) SCHEDULED FOR THE SURGERY ON 02/11/2019 Pulmonary embolism ([facility]) Seasonal allergies Shortness of breath URSULA (stress urinary incontinence, female) Vertigo LABS: CBC: Recent Labs 06/02/23 1057 06/03/23 0542 WBC 10.2 9.7 RBC 4.28 4.38 HGB 11.7 11.8 HCT 36.8 36.6 MCV 86.0 83.5 RDW 15.2* 15.1* PLT 177 338 BMP: Recent Labs 06/01/23 0503 06/02/23 1057 06/03/23 0542 NA 137 -- 138 K 4.4 -- 4.1 CL 105 -- 105 CO2 24 -- 24 BUN 24* -- 21* CREATININE 0.67 0.63 0.73 0.68 GLUCOSE 196* -- 89 CALCIUM 8.8 -- 8.5 ANIONGAP 7 -- 9 LIVER PROFILE:No results for input(s): AST, ALT, [...] the last 72 hours. Objective: Vitals: BP (!) 153/90 Pulse 80 Temp 36.8 C (98.2 F) (Temporal) Resp 18 Ht 5' 7.01 (1.702 m) Wt (!) 320 lb (145 kg) SpO2 94% BMI 50.11 kg/m Pulse Ox: SpO2 Av.5 % Min: 93 % Max: 94 % Physical Exam Constitutional: General: She is not in acute distress. Appearance: She is obese. Cardiovascular: Rate and Rhythm: Normal rate and regular rhythm. Pulses: Normal pulses. Heart sounds: Normal heart sounds. Pulmonary: Effort: Pulmonary effort is normal. Breath sounds: Normal breath sounds. Abdominal: General: Abdomen is flat. Palpations: Abdomen is soft. Musculoskeletal: Comments: Wound VAC in place at left AKA stump site, no drainage noted. Skin: General: Skin is warm and dry. Neurological: Mental Status: She is alert. Medications: lactated Ringer's, 50 mL/hr, Last Rate: Stopped (05/31/23 1542) acetaminophen, 650 mg, Oral, Q4H amitriptyline, 100 mg, Oral, Nightly citalopram, 20 mg, Oral, Daily docusate sodium, 100 mg, Oral, BID enoxaparin, 30 mg, SubCUTAneous, 2 times per day ertapenem, 1,000 mg, IntraVENous, q24h gabapentin, 300 mg, Oral, BID Lidocaine, 1 patch, Topical, Daily mometasone-formoterol, 2 puff, Inhalation, BID montelukast, 10 mg, Oral, Daily pantoprazole, 40 mg, Oral, qAM AC vancomycin, 1,500 mg, IntraVENous, q12h Assessment and Plan SSTI of LLE AKA site-orthopedics following. Repeat I&D on 05/29 with wound VAC application, repeat I&D 05/31 again with wound VAC placement. Planning for another repeat I&D on 06/[address] Mercado. Infectious disease following. Current cultures pending. Previous cultures positive for MSSA, Finegoldia. Continue ertapenem and vancomycin, will adjust as needed based on cultures. Debility-PT/OT/case management following. Planning on return to facility on discharge. History of PE/DVT on Eliquis-holding home Eliquis with plan for repeat I&D on 06/05. Continue Lovenox for DVT prophylaxis. Stable chronic conditions: - History of right foot osteomyelitis s/p right BKA - SONG - COPD on home O2 - History of PE/DVT on Eliquis - Peripheral neuropathy - FAY/OHS on BiPAP - Stress urinary incontinence - Fibromyalgia - GERD - Depression - Vertigo - Morbid obesity -DVT prophylaxis: [x] Lovenox [] Heparin [] SCDs [x] Encourage ambulation [] Already on Anticoagulation -CODE STATUS: Full code Anticipated Discharge - Date -TBD - Location - Skilled Facility - Pending the following -recovery from repeat I&D on 06/05 Total time spent (which include face to face and non face to face encounters) : 35 minutes Extended Emergency Contact Information Primary Emergency Contact: Luz Marina Mueller Relation: Child Secondary Emergency Contact: Dominga Purcell Relation: Sister Gallo Castillo Division of Hospitalist Medicine [employer] PAGER: Epic chat * Rani Love MD - 06/03/2023 10:58 AM EDT Department of Orthopedic Surgery Progress Note SUBJECTIVE: Continues to do well. No issues. OBJECTIVE: General: alert and oriented to person, place and time, well-developed and well- nourished, in no acute distress, denies chest pain and shortness of breath VITALS: BP (!) 153/90 Pulse 80 Temp 36.8 C (98.2 F) (Temporal) Resp 18 Ht 1.702 m (5' 7.01) Wt (!) 145 kg (320 lb) SpO2 94% BMI 50.11 kg/m MSK exam: Left LE: Wound vac C/D/I with intact suction SILT to stump Motor +Hip flexion Extremity is warm and well perfused, BCR <2s Labs: Type and Screen: No results found for: RH, LABANTI INR: No results found for: INR CRP: No results found for: CRP ESR: No results found for: SEDRATE ASSESSMENT AND PLAN: This is a 62 y.o. female s/p L AKA I&D with wound vac application on 05/29,rpt I&D wvac 05/31 RTOR for repeat I&D 06/[address] Mercado Consented NPO 06/05@[place] Veraflow vac to LLE, do not change, will change in OR Med c/s ID c/s - abx per ID APS c/s NWB LLE Neuro/skin checks OR cultures pending (+GPCs from 05/29, 05/31 cx NGTD) Ortho 1 , page manager acquisition resident with questions/concerns * Nixon Hodge, [facility] - 06/03/2023 8:36 AM EDT Recent Labs 06/01/23 0503 06/02/23 1057 06/03/23 0542 BUN 24* -- 21* CREATININE 0.67 0.63 0.73 0.68 Updated InsightRx: [x] doses administered [x] SCr [] random level (due 06/09/23) Current regimen vancomycin 1500 mg every 12 hours, predicted AUC = 466 mg/L*hr (goal 400-600 mg/L*hr). Current AUC is therapeutic and renal function is stable, therefore, will proceed with current dose for today. Next random Vancomycin level due on 06/09/23 unless significant change in renal functionbefore then. Trend serum creatinine. Trend AUC using [employer] Modeling. Orders placed. Nixon Hodge PharmD. * Gallo Castillo - 06/02/2023 8:16 PM EDT Images from the original note were not included. Hospitalist Progress Note 06/02/[id number]: Please secure chat me for patient care issues. [phone]: Please secure chat [facility] Hospitalist for any issues. Subjective: Admit Date: 05/29/2023 PCP: Oj Maddox Room#: [id number] Interval History: No acute events overnight. Patient seen at bedside. Sitting comfortably in bed, conversing normally, no acute distress. Patient states that she is feeling well overall. Mild pain inher left leg stump site, otherwise has no acute pain or discomfort. No other acute concerns currently. 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 ([facility]) 07/27/2020 Asthma Cellulitis Constipation Depression Difficult intubation 12/04/2022 Fibromyalgia GERD (gastroesophageal reflux disease) History of transfusion Hx of right BKA ([facility]/HCC) (HCC) Hypertension Morbidly obese ([facility]) 02/03/2019 BMI 50.52 On home O2 FAY treated with BiPAP Osteoarthritis Osteomyelitis of right foot ([facility]) SCHEDULED FOR THE SURGERY ON 02/11/2019 Pulmonary embolism ([facility]) Seasonal allergies Shortness of breath URSULA (stress urinary incontinence, female) Vertigo LABS: CBC: Recent Labs 06/02/23 1057 WBC 10.2 RBC 4.28 HGB 11.7 HCT 36.8 MCV 86.0 RDW 15.2* PLT 177 BMP: Recent Labs 06/01/23 0503 06/02/23 1057 NA 137 -- K 4.4 -- CL 105 -- CO2 24 -- BUN 24* -- CREATININE 0.67 0.63 0.73 GLUCOSE 196* -- CALCIUM 8.8 -- ANIONGAP 7 -- LIVER PROFILE:No results for input(s): AST, ALT, [...] the last 72 hours. Objective: Vitals: BP 128/81 Pulse 91 Temp 36.6 C (97.9 F) (Temporal) Resp 18 Ht 5' 7.01 (1.702 m) Wt (!) 320 lb (145 kg) SpO2 94% BMI 50.11 kg/m Pulse Ox: SpO2 Av.5 % Min: 94 % Max: 95 % Physical Exam Constitutional: General: She is not in acute distress. Appearance: She is obese. Cardiovascular: Rate and Rhythm: Normal rate and regular rhythm. Pulses: Normal pulses. Heart sounds: Normal heart sounds. Pulmonary: Effort: Pulmonary effort is normal. Breath sounds: Normal breath sounds. Abdominal: General: Abdomen is flat. Palpations: Abdomen is soft. Musculoskeletal: Comments: Wound VAC in place at left AKA stump site, no drainage noted. Skin: General: Skin is warm and dry. Neurological: Mental Status: She is alert. Medications: lactated Ringer's, 50 mL/hr, Last Rate: Stopped (05/31/23 1542) acetaminophen, 650 mg, Oral, Q4H amitriptyline, 100 mg, Oral, Nightly citalopram, 20 mg, Oral, Daily docusate sodium, 100 mg, Oral, BID enoxaparin, 30 mg, SubCUTAneous, 2 times per day ertapenem, 1,000 mg, IntraVENous, q24h gabapentin, 300 mg, Oral, BID Lidocaine, 1 patch, Topical, Daily mometasone-formoterol, 2 puff, Inhalation, BID montelukast, 10 mg, Oral, Daily pantoprazole, 40 mg, Oral, qAM AC vancomycin, 1,500 mg, IntraVENous, q12h Assessment and Plan SSTI of LLE AKA site-orthopedics following. Repeat I&D on 05/29 with wound VAC application, repeat I&D 05/31 again with wound VAC placement. Planning for another repeat I&D on 06/[address] Mercado. Infectious disease following. Current cultures pending. Previous cultures positive for MSSA, Finegoldia. Continue ertapenem and vancomycin, will adjust as needed based on cultures. Debility-PT/OT/case management following. Planning on return to facility on discharge. History of PE/DVT on Eliquis-holding home Eliquis with plan for repeat I&D on 06/05. Continue Lovenox for DVT prophylaxis. Stable chronic conditions: - History of right foot osteomyelitis s/p right BKA - SONG - COPD on home O2 - History of PE/DVT on Eliquis - Peripheral neuropathy - FAY/OHS on BiPAP - Stress urinary incontinence - Fibromyalgia - GERD - Depression - Vertigo - Morbid obesity -DVT prophylaxis: [x] Lovenox [] Heparin [] SCDs [x] Encourage ambulation [] Already on Anticoagulation -CODE STATUS: Full code Anticipated Discharge - Date -TBD - Location - Skilled Facility - Pending the following -recovery from repeat I&D on 06/05 Total time spent (which include face to face and non face to face encounters) : 35 minutes Extended Emergency Contact Information Primary Emergency Contact: Luz Marina Mueller Relation: Child Secondary Emergency Contact: Dominga Purcell Relation: Sister Gallo Tracey Castillo Division of Hospitalist Medicine [facility] PAGER: Epic chat * Cristian Maxwell DO - 06/02/2023 5:32 PM EDT Images from the original note were not included. [facility] - Infectious Diseases Attending Progress Note Subjective: Following for SSTI of LLE AKA site. Patient reports that she is feeling well overall. She reports mild pain in the area of the L AKA stump. Wound VAC is in place; no visible drainage is present. She denies f/c, n/v/d, SOB, cough, or abdominal pain. No further complaints at this time. Objective: Vitals: Patient Vitals for the past 24 hrs: BP Temp Temp src Pulse Resp SpO2 06/02/23 0754 128/81 36.6 C (97.9 F) Temporal 91 18 94 % 06/01/232099 -- -- -- 89 -- 95 % 06/01/232008 98/55 36.9 C (98.4 F) Temporal 91 20 93 % Physical Exam Constitutional: General: She is not in acute distress. Appearance: Normal appearance. She is normal weight. She is not ill-appearing, toxic-appearing or diaphoretic. HENT: Head: Normocephalic and atraumatic. Nose: Nose normal. Mouth/Throat: Mouth: Mucous membranes are moist. Pharynx: Oropharynx is clear. No oropharyngeal exudate or posterior oropharyngeal erythema. Eyes: General: No scleral icterus. Extraocular Movements: Extraocular movements intact. Pupils: Pupils are equal, round, and reactive to light. Cardiovascular: Rate and Rhythm: Normal rate and regular rhythm. Pulses: Normal pulses. Heart sounds: Normal heart sounds. No murmur heard. No friction rub. No gallop. Pulmonary: Effort: Pulmonary effort is normal. No respiratory distress. Breath sounds: Normal breath sounds. No wheezing, rhonchi or rales. Comments: Diminished breath sounds b/l Prolonged expiratory phase Abdominal: General: Abdomen is flat. Bowel sounds are normal. Palpations: Abdomen is soft. Tenderness: There is no abdominal tenderness. There is no guarding or rebound. Musculoskeletal: General: Swelling, tenderness, deformity and signs of injury present. Cervical back: Neck supple. Comments: s/p L AKA, R BKA Wound VAC in place on L AKA stump No surrounding erythema or discharge Skin: General: Skin is warm and dry. Capillary Refill: Capillary refill takes less than 2 seconds. Coloration: Skin is not pale. Findings: No erythema, lesion or rash. Neurological: General: No focal deficit present. Mental Status: She is alert. Psychiatric: Mood and Affect: Mood normal. Judgment: Judgment normal. Labs: Lab Results Component Value Date/Time NA 137 06/01/2023 0503 K 4.4 06/01/2023 0503 CL 105 06/01/2023 0503 CO2 24 06/01/2023 0503 BUN 24 (H) 06/01/2023 0503 CREATININE 0.73 06/02/2023 1057 CREATININE 0.70 02/14/2022 0918 GLUCOSE 196 (H) 06/01/2023 0503 CALCIUM 8.8 06/01/2023 0503 PROT 6.3 12/12/2022 0612 BILITOT 0.3 12/12/2022 0612 ALKPHOS 140 (H) 12/12/2022 0612 AST 24 12/12/2022 0612 ALT 18 12/12/2022 0612 PROCAL 0.04 12/04/2022 0149 PROCAL 0.02 11/11/2022 0301 PROCAL 1.77 (H) 01/25/2022 0618 Lab Results Component Value Date/Time WBC 10.2 06/02/2023 1057 HGB 11.7 06/02/2023 1057 HCT 36.8 06/02/2023 1057 PLT 177 06/02/2023 1057 GRANULOCYTES 66.9 02/14/2022 0918 LYMPHOPCT 10.4 (L) 05/30/2023 0105 MONOPCT 3.2 05/30/2023 0105 LABEOS 3.5 02/14/2022 0918 BASOPCT 0.3 05/30/2023 0105 NEUTROABS 6.0 05/30/2023 0105 Micro: 05/22 LLE fluid CXs (+) for Finegoldia magna, MSSA 05/29 L thigh fluid CXs (+) for GPCs Lines/Drains/Airways: 05/29 RUE PIV Radiography/Echo/Other: None Antimicrobials, Start/End Dates: 05/29-05/30 cefazolin 05/30- ertapenem 05/30- vancomycin Impression: Ms. Haas is a 62 y/o F w/ PMH of LLE NF s/p debridement and L AKA, R BKA, COPD/asthma on home O2, prior b/l PE 08/2022 (AC on apixaban), FAY on BIPAP, GERD, HTN, OA, depression, fibromyalgia. She presented to [facility] to the orthopedics service 05/28; she was seen 1w postop by ortho following I&Dof L thigh hematoma. CXs obtained at the time were (+) for Finegoldia magna, MSSA. She was taken for I&D of abscess; CXs (+) for GPC. Previously seen by the ID service for LLE OM. The ID service is consulted for LLE AKA SSTI d/t MSSA, Finegoldia magna. Plan: 1. SSTI of LLE AKA site - Patient presented to orthopedic service d/t L AKA hematoma - s/p I+D; CXs pending; previous CXs (+) for MSSA, Finegoldia - Orthopedics following; plan is for repeat washout next week - Will follow CX results and adjust accordingly 2. Chronic obstructive pulmonary disease- on home O2 3. Obstructive sleep apnea- on BiPAP 4. Prior b/l PE 08/2022- AC on apixaban 5. Hx of R foot OM s/p R BKA 6. Gastroesophageal reflux disease 7. Stress urinary incontinence 8. Hypertension 9. Osteoarthritis 10. Obesity 11. Seasonal allergies 12. Vertigo 13. Asthma 14. Depression 15. Fibromyalgia Recommendations: 1. Maintain IV vancomycin + ertapenem 2. Will follow CX results and adjust accordingly 3. Will plan for 6-week total course of therapy The ID service will continue to follow. Based on diagnoses and management, combination of acute and chronic problems, exacerbations and/or acuity, this visit should be considered to be of moderate complexity. Cristian Maxwell DO [facility] Infectious Diseases Office Tel. [phone] * Nixon Hodge RPh - 06/02/2023 12:16 PM EDT Recent Labs 06/01/23 0503 06/02/23 1057 BUN 24* -- CREATININE 0.67 0.63 0.73 Updated InsightRx: [x] doses administered [x] SCr [x] random level (18.4 ug/dL) Current regimen vancomycin 1500 mg every 12 hours, predicted AUC = 462 mg/L*hr (goal 400-600 mg/L*hr). Current AUC is therapeutic and renal function is stable, therefore, will proceed with current dose. Next random Vancomycin level due 06/09/23 unless significant change in renal function before then. Trend serum creatinine. Trend AUC using Baysian Modeling. Orders placed. Nixon Hodge PharmD. * Rani Love MD - 06/02/2023 10:05 AM EDT Department of Orthopedic Surgery Progress Note SUBJECTIVE: No issues today. Understands plan for RTOR on Sunday for rpt I&D and hopeful closure of wound. OBJECTIVE: General: alert and oriented to person, place and time, well-developed and well- nourished, in no acute distress, denies chest pain and shortness of breath VITALS: BP 128/81 Pulse 91 Temp 36.6 C (97.9 F) (Temporal) Resp 18 Ht 1.702 m (5' 7.01) Wt (!) 145 kg (320 lb) SpO2 94% BMI 50.11 kg/m MSK exam: Left LE: Wound vac C/D/I with intact suction SILT to stump Motor +Hip flexion Extremity is warm and well perfused, BCR <2s Labs: Type and Screen: Lab Results Component Value Date RH POS 05/31/2023 INR: No results found for: INR CRP: No results found for: CRP ESR: No results found for: SEDRATE ASSESSMENT AND PLAN: This is a 62 y.o. female s/p L AKA I&D with wound vac application on 05/29,rpt I&D wvac 05/31 RTOR for repeat I&D 06/[address] Mercado Added to schedule today Consented NPO 06/05@[place] vac to LLE, do not change, will change in OR Med c/s ID c/s - abx per ID APS c/s NWB LLE Neuro/skin checks OR cultures pending (+GPCs from 05/29, 05/31 cx NGTD) Ortho 1 , page manager acquisition resident with questions/concerns * Cristian Maxwell DO - 06/01/2023 9:08 PM EDT Images from the original note were not included. [facility] - Infectious Diseases Attending Progress Note Subjective: Following for SSTI of LLE AKA site. Patient reports that she is feeling well overall. She reports mild pain in the area of the L AKA stump. Wound VAC is in place; no visible drainage is present. She denies f/c, n/v/d, SOB, cough, or abdominal pain. No further complaints at this time. Objective: Vitals: Patient Vitals for the past 24 hrs: BP Temp Temp src Pulse Resp SpO2 06/01/232008 98/55 36.9 C (98.4 F) Temporal 91 20 93 % 06/01/23 0804 119/73 37.2 C (98.9 F) Temporal 94 18 94 % Physical Exam Constitutional: General: She is not in acute distress. Appearance: Normal appearance. She is normal weight. She is not ill-appearing, toxic-appearing or diaphoretic. HENT: Head: Normocephalic and atraumatic. Nose: Nose normal. Mouth/Throat: Mouth: Mucous membranes are moist. Pharynx: Oropharynx is clear. No oropharyngeal exudate or posterior oropharyngeal erythema. Eyes: General: No scleral icterus. Extraocular Movements: Extraocular movements intact. Pupils: Pupils are equal, round, and reactive to light. Cardiovascular: Rate and Rhythm: Normal rate and regular rhythm. Pulses: Normal pulses. Heart sounds: Normal heart sounds. No murmur heard. No friction rub. No gallop. Pulmonary: Effort: Pulmonary effort is normal. No respiratory distress. Breath sounds: Normal breath sounds. No wheezing, rhonchi or rales. Comments: Diminished breath sounds b/l Prolonged expiratory phase Abdominal: General: Abdomen is flat. Bowel sounds are normal. Palpations: Abdomen is soft. Tenderness: There is no abdominal tenderness. There is no guarding or rebound. Musculoskeletal: General: Swelling, tenderness, deformity and signs of injury present. Cervical back: Neck supple. Comments: s/p L AKA, R BKA Wound VAC in place on L AKA stump No surrounding erythema or discharge Skin: General: Skin is warm and dry. Capillary Refill: Capillary refill takes less than 2 seconds. Coloration: Skin is not pale. Findings: No erythema, lesion or rash. Neurological: General: No focal deficit present. Mental Status: She is alert. Psychiatric: Mood and Affect: Mood normal. Judgment: Judgment normal. Labs: Lab Results Component Value Date/Time NA 135 05/30/2023 0105 K 4.4 05/30/2023 0105 CL 100 05/30/2023 0105 CO2 26 05/30/2023 0105 BUN 15 05/30/2023 0105 CREATININE 0.63 06/01/2023 0503 CREATININE 0.70 02/14/2022 0918 GLUCOSE 220 (H) 05/30/2023 010 CALCIUM 8.8 05/30/2023 0105 PROT 6.3 12/12/2022 0612 BILITOT 0.3 12/12/2022 0612 ALKPHOS 140 (H) 12/12/2022 0612 AST 24 12/12/2022 0612 ALT 18 12/12/2022 0612 PROCAL 0.04 12/04/2022 0149 PROCAL 0.02 11/11/2022 0301 PROCAL 1.77 (H) 01/25/2022 0618 Lab Results Component Value Date/Time WBC 6.9 05/30/2023 0105 HGB 11.7 05/30/2023 0105 HCT 36.7 05/30/2023 0105 PLT 293 05/30/2023 0105 GRANULOCYTES 66.9 02/14/2022 0918 LYMPHOPCT 10.4 (L) 05/30/2023 010 MONOPCT 3.2 05/30/2023 010 LABEOS 3.5 02/14/2022 0918 BASOPCT 0.3 05/30/2023 010 NEUTROABS 6.0 05/30/2023 0105 Micro: 05/22 LLE fluid CXs (+) for Finegoldia magna, MSSA 05/29 L thigh fluid CXs (+) for GPCs Lines/Drains/Airways: 05/29 RUE PIV Radiography/Echo/Other: None Antimicrobials, Start/End Dates: 05/29-05/30 cefazolin 05/30- ertapenem 05/30- vancomycin Impression: Ms. Haas is a 62 y/o F w/ PMH of LLE NF s/p debridement and L AKA, R BKA, COPD/asthma on home O2, prior b/l PE 08/2022 (AC on apixaban), FAY on BIPAP, GERD, HTN, OA, depression, fibromyalgia. She presented to [facility] to the orthopedics service 05/28; she was seen 1w postop by ortho following I&Dof L thigh hematoma. CXs obtained at the time were (+) for Finegoldia magna, MSSA. She was taken for I&D of abscess; CXs (+) for GPC. Previously seen by the ID service for LLE OM. The ID service is consulted for LLE AKA SSTI d/t MSSA, Finegoldia magna. Plan: 1. SSTI of LLE AKA site - Patient presented to orthopedic service d/t L AKA hematoma - s/p I+D; CXs pending; previous CXs (+) for MSSA, Finegoldia - Orthopedics following; plan is for repeat washout next week - Will follow CX results and adjust accordingly 2. Chronic obstructive pulmonary disease- on home O2 3. Obstructive sleep apnea- on BiPAP 4. Prior b/l PE 08/2022- AC on apixaban 5. Hx of R foot OM s/p R BKA 6. Gastroesophageal reflux disease 7. Stress urinary incontinence 8. Hypertension 9. Osteoarthritis 10. Obesity 11. Seasonal allergies 12. Vertigo 13. Asthma 14. Depression 15. Fibromyalgia Recommendations: 1. Maintain IV vancomycin + ertapenem 2. Will follow CX results and adjust accordingly 3. Will plan for 6-week total course of therapy The ID service will continue to follow. Based on diagnoses and management, combination of acute and chronic problems, exacerbations and/or acuity, this visit should be considered to be of moderate complexity. Cristian Maxwell DO [facility] Infectious Diseases Office Tel. [phone] * Xochitl Figueroa MD - 06/01/2023 1:10 PM EDT Images from the original note were not included. Hospitalist Progress Note Subjective: Admit Date: 05/29/2023 PCP: Oj Maddox Room#: [id number] Interval History: No overnight issues. Had repeat I&D done yesterday, drain in LLE stump. Denies any complaints. NPO diet Adult diet Regular @[id number]@ 24HR INTAKE/OUTPUT: Intake/Output Summary (Last 24 hours) at 06/01/2023 1310 Last data filed at 05/31/2023 1818 Gross per 24 hour Intake 820.5 ml Output 880 ml Net -59.5 ml 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) 07/27/2020 Asthma Cellulitis Constipation Depression Difficult intubation 12/04/2022 Fibromyalgia GERD (gastroesophageal reflux disease) History of transfusion Hx of right BKA (CMS/HCC) (HCC) Hypertension Morbidly obese (HCC) 02/03/2019 BMI 50.52 On home O2 FAY treated with BiPAP Osteoarthritis Osteomyelitis of right foot (HCC) SCHEDULED FOR THE SURGERY ON 02/11/2019 Pulmonary embolism ([facility]) Seasonal allergies Shortness of breath URSULA (stress urinary incontinence, female) Vertigo LABS: CBC: Recent Labs 05/30/23104 WBC 6.9 RBC 4.29 HGB 11.7 HCT 36.7 MCV 85.5 RDW 14.5 PLT 293 BMP: Recent Labs 05/30/2310406/01/23 0503 NA 135 -- K 4.4 -- CL 100 -- CO2 26 -- BUN 15 -- CREATININE 0.76 0.63 GLUCOSE 220* -- CALCIUM 8.8 -- ANIONGAP 9 -- LIVER PROFILE:No results for input(s): AST, ALT, BILITOT, ALKPHOS, PROT in the last 72 hours. No lab exists for component: LABALBU PT/INR: Recent Labs 05/30/23104 PROTIME 10.4 INR 1.0 CARDIAC ENZYMES: No results for input(s): TROPONINI in the last 72 hours. Procalcitonin: No results found for: PROCAL COVID-19 PCR: No results for input(s): COVID19 in the last 72 hours. Objective: Vitals: BP 119/73 (BP Location: Right arm, Patient Position: Lying) Pulse 94 Temp 37.2 C (98.9 F) (Temporal) Resp 18 Ht 5' 7.01 (1.702 m) Wt (!) 320 lb (145 kg) SpO2 94% BMI 50.11 kg/m Pulse Ox: SpO2 Av.8 % Min: 92 % Max: 99 % Supplemental O2: O2 Flow Rate (L/min): 2 L/min Patient is alert, awake, oriented x 3 No pallor, Icterus No JVD Heart S1 S2 No murmurs Lungs clear to auscultation Abdomen soft non distended no organomegaly Left AKA - wrapped. Right BKA, drain in L stump. No focal neurological deficits Medications: lactated Ringer's, 50 mL/hr, Last Rate: Stopped (05/31/23 1542) acetaminophen, 650 mg, Oral, Q4H amitriptyline, 100 mg, Oral, Nightly citalopram, 20 mg, Oral, Daily docusate sodium, 100 mg, Oral, BID enoxaparin, 30 mg, SubCUTAneous, 2 times per day ertapenem, 1,000 mg, IntraVENous, q24h gabapentin, 300 mg, Oral, BID Lidocaine, 1 patch, Topical, Daily mometasone-formoterol, 2 puff, Inhalation, BID montelukast, 10 mg, Oral, Daily pantoprazole, 40 mg, Oral, qAM AC vancomycin, 1,500 mg, IntraVENous, q12h Assessment LLE hematomas s/p left thigh AKA Hx of LLE OM s/p AKA (10/2022) Hx of Right foot OM s/p right BKA SONG Debility Hx of PE/DVT on Eliquis COPD on home O2 FAY/OHS on BiPAP Peripheral neuropathy Stress urinary incontinence Fibromyalgia GERD Depression Vertigo Morbid obesity - BMI 50.12 Plan -s/p repeat I&D yesterday. - wound vac in place in L stump, skin healed, - ID on board, on iv antibiotics -am labs, replace lytes prn -increase activity -DVT prophylaxis: [] Lovenox [] Heparin [] SCDs [x] Encourage ambulation [] Already on Toxic drug monitoring/narrow therapeutic index drug monitoring : # Drug name : # Route administered : # Method of monitoring : Xochitl Figueroa MD 06/01/2023 Division of Hospitalist Medicine Inpatient Medical Services/[facility] [place] PAGER: [phone] * Nixon Hodge, [facility] - 06/01/2023 8:40 AM EDT Recent Labs 05/30/23 0105 06/01/23 0503 BUN 15 -- CREATININE 0.76 0.63 Updated InsightRx: [x] doses administered [x] SCr [x] random level (10.9 ug/dL) Current regimen vancomycin 1250 mg every 12 hours, predicted AUC = 422 mg/L*hr (goal 400-600 mg/L*hr); also current pAUC = 62% with probability of nephrotoxicity = 6%. Will increase dose to 1500 mg every 12 hours, new predicted AUC = 507 mg/L*hr, pAUC = 90 % with probability of nephrotoxicity = 8%.Next random Vancomycin level to be drawn tomorrow 06/02/23. Pharmacy will assess level tomorrow and adjust dose as appropriate. Trend serum creatinine. Trend AUC using Baysian Modeling. Orders placed. Nixon Hodge PharmD. * Holly Woodruff APRN - DATA MINING ANALYST - 06/01/2023 8:11 AM EDT PAGING: The Acute Pain Service providers are available exclusively via [employer]. APS does not utilize pagers. 06/01/2023 Lab Results Component Value Date CREATININE 0.63 06/01/2023 AST 24 12/12/2022 ALT 18 12/12/2022 Pain Management Adjuvants: 0700 --> 0700 05/29/2023 05/30/2023 05/31/2023 Scheduled RTOR APAP 2950mg 2300mg Gabapentin 700mg 600mg Lidocaine patches refused Refused PRN Hydromorphone 0.5mg 2mg (1mg pacu) Methocarbamol 750mg 1500mg Oxycodone 25mg 40mg Assessment / Pain Management Plan: RTOR 06/05 Acute Postsurgical LLE pain Multimodal pain regimen: Continue Acetaminophen 650 mg po q4h scheduled ATC. Continue Gabapentin 300 mg po BID Continue Lidocaine patch x 1. Cut and place as needed. Continue Hydromorphone 0.25 mg - 0.5 mg IVP q4h prn moderate to severe breakthrough pain. Please utilize oral medications first. Continue Methocarbamol 750 mg PO TID PRN. Continue Oxycodone 5 - 10 mg po q4h prn moderate to severe breakthrough pain. Continue Naloxone 0.4 mg IVP prn opioid reversal. PRN if respiratory rate is less than 6/min and patient is difficult to arouse then notify physicianSTAT. Mix 9 mL of sodium chloride 0.9% with 0.4 mg (1 mL) of naloxone (NARCAN) in 10 mL syringe. (Note: dilution is 0.04 mg/mL) Give 0.08 mg (2 mL of special dilution), slow IV push, repeat up to 0.4mg (10 mL) or until patient is responsive to physical stimulation and respiratory rate is equal to or greater than 6 breaths/min. Continue to observe, if no response within 3 minutes of administration of 0.4 mg (10 mL) total, repeat dose (0.4 mg as administered previously). 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, LEFT THIGH (ABOVE KNEE AMPUTATION) INCISION AND DRAINAGE on 05/29/23 Incision and drainage abscess left thigh and wound vac application 05/31/23 See #1 Constipation At risk for opioid induced constipation Patient currently receiving opioids for pain management necessitating a bowel regimen. Recommend initiating scheduled Sennakot-S 8.6/50mg, 1 tablet PO BID. Would also recommend Milk of Magnesia 400mg/5ml, administer 30mL by mouth daily PRN. Opioid Use Acute: Expected to be short term post op pain, see #1 [place]AR[place] reviewed for past two years. (Intermittent opiates RX) Reviewed and educated patient on responsible use [...] circulation and your body's abilityto heal itself. Pain well controlled on current regimen. Pt to RTOR 06/05. Will follow peripherally Plan discussed with patient who appears to understand and agrees. Subjective: We have been asked to see this 62 y.o. female for postoperative pain management s/p LEFT THIGH (ABOVE KNEE AMPUTATION) INCISION AND DRAINAGE on 05/29/23 and s/p Incision and drainage abscess left thigh and wound vac application 05/31/23 Reviewed ecg 12/07/22 JEN, no pages. On arrival, pt sitting up in bed getting ready to eat breakfast. Pt appears well, comfortable. Pt talkative and cooperative throughout exam, happy with current pain regimen. Pain controlled. Endorsessome mild tenderness around her shoulders but states the robaxin helps significantly. Pt with plansto RTOR 06/05/23. Tolerating diet, denies n/v. Patient educated on pain regimen, aware that oxycodone, dilaudid, methocarbamol are PRN and patient must ask for these medications when needed. Educated patient to utilize oral pain medications as first line and reserve IV pain medications for severe breakthrough pain. Pt is realistic about pain control: Not all pain will be taken away, but pain should be tolerable/manageable with current regimen. Pt instructed to have staff page APS if pain becomes uncontrolled when utilizing present regimen. Pt agreeable, denies further questions. PMH reviewed below Pain Location: LLE Aggravating Factors: Moving Sedation score: 1: Awake and alert Pain Severity: moderate. Pain well controlled Pain Quality: aching Alleviating Factors: Rest/Pain medications Pain Management: n/a The patient's medical history and physical assessment, medications, allergies, patient's current medical condition, imaging, and labs were reviewed as part of this consultation. [x] Patient's Medications have been reviewed. [x] Patient's OARRS report (PDMP) have been reviewed. Filled Written Drug QTY Days 05/25/2023 05/25/2023 Oxycodone-Acetaminophen 5-325 28.00 7 05/18/2023 05/18/2023 Oxycodone-Acetaminophen 5-325 28.00 7 05/08/2023 05/08/2023 Oxycodone-Acetaminophen 5-325 28.00 7 04/24/2023 04/24/2023 Gabapentin 300 Mg Capsule 180.00 90 02/22/2023 02/22/2023 Oxycodone-Acetaminophen 5-325 20.00 5 01/16/2023 01/16/2023 Alprazolam 0.5 Mg Tablet 30.00 30 11/27/2022 11/27/2022 Oxycodone Hcl (Ir) 10 Mg Tab 15.00 3 10/09/2022 10/05/2022 Oxycodone-Acetaminophen 5-325 56.00 28 09/18/2022 09/18/2022 Alprazolam 0.5 Mg Tablet 63.00 21 09/11/2022 09/11/2022 Oxycodone-Acetaminophen 5-325 56.00 28 06/06/2022 06/06/2022 Oxycodone-Acetaminophen 5-325 56.00 28 05/15/2022 05/08/2022 Oxycodone-Acetaminophen 5-325 56.00 28 04/10/2022 04/10/2022 Pregabalin 50 Mg Capsule 56.00 28 04/10/2022 04/10/2022 Oxycodone-Acetaminophen 5-325 56.00 28 03/09/2022 03/06/2022 Gabapentin 300 Mg Capsule 360.00 90 Social History Tobacco Use Smoking Status Former Packs/day: 0.15 Years: 5.00 Pack years: 0.75 Types: Cigarettes Quit date: 10/01/1981 Years since quittin.6 Passive exposure: Past Smokeless Tobacco Never Social History Substance and Sexual Activity Alcohol Use Not Currently Social History Substance and Sexual Activity Drug Use No Allergies: Amlodipine, Cefepime, Clonazepam, Ketamine, Lisinopril, and Vancomycin Objective Findings: Height: 170.2 cm (5' 7.01) Weight: (!) 145 kg (320 lb) BMI (Calculated): 50.11 Vital signs: Blood pressure 119/73, pulse 94, temperature 37.2 C (98.9 F), temperature source Temporal, resp. rate 18, height 1.702 m (5' 7.01), weight (!) 145 kg (320 lb), SpO2 94 %, not currently . Review of Systems Constitutional: Negative for chills and fever. HENT: Negative for trouble swallowing. Eyes: Negative for visual disturbance. Respiratory: Negative for shortness of breath and wheezing. Cardiovascular: Negative for chest pain and palpitations. Gastrointestinal: Negative for abdominal pain, nausea and vomiting. Genitourinary: Negative for difficulty urinating and hematuria. Musculoskeletal: Positive for myalgias. Skin: Positive for wound (surgical). Negative for color change. Neurological: Negative for dizziness and light-headedness. Psychiatric/Behavioral: Negative for agitation and confusion. Physical Exam Vitals and nursing note reviewed. HENT: Head: Normocephalic. Cardiovascular: Rate and Rhythm: Normal rate. Pulmonary: Effort: No respiratory distress. Abdominal: Tenderness: There is no guarding. Musculoskeletal: General: Tenderness present. Skin: General: Skin is warm and dry. Comments: Surgical wound Neurological: Mental Status: She is alert and oriented to person, place, and time. Psychiatric: Mood and Affect: Mood normal. Behavior: Behavior normal. Thought Content: Thought content normal. Judgment: Judgment normal. 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 ([facility]) 07/27/2020 Asthma Cellulitis Constipation Depression Difficult intubation 12/04/2022 Fibromyalgia GERD (gastroesophageal reflux disease) History of transfusion Hx of right BKA ([facility]) ([facility]) Hypertension Morbidly obese ([facility]) 02/03/2019 BMI 50.52 On home O2 FAY treated with BiPAP Osteoarthritis Osteomyelitis of right foot ([facility]) SCHEDULED FOR THE SURGERY ON 02/11/2019 Pulmonary embolism ([facility]) Seasonal allergies Shortness of breath URSULA (stress urinary incontinence, female) Vertigo Past Surgical History: Procedure Laterality Date ABCESS DRAINAGE Right 08/07/2020 I&D of right BKA hematoma AMPUTATION Left 12/2022 ANKLE SURGERY Left 12/19/2021 ankle I and D with placement of wound vac - dr alyssa PARKS ABDOMINOPLASTY BREAST SURGERY 2006 and abdomin removal for excess COLONOSCOPY COLONOSCOPY EXTREMITY SURGERY Left 01/24/2022 debridement necrotizing fasciitis LLE, wound vac FOOT SURGERY Right 02/11/2019 FOOT SURGERY Right 2019 [place] FOOT SURGERY Right 04/08/2019 I&D right foot with antibiotic spacer FOOT SURGERY Right 04/24/2019 I&D;, external fixator FOOT SURGERY Left 08/04/2021 peroneus longus tenolysis - Dr Gamino HYSTERECTOMY 1997 INCISION AND DRAINAGE OF WOUND Left 11/21/2022 LLE INCONTINENCE SURGERY 11/15/2015 synthetic mid urethral sling,cystoscopy JOINT REPLACEMENT Left TKR LIPOMA RESECTION Right 2014 shoulder ORTHOPEDIC SURGERY [...] Right 05/06/2019 Right Below Knee Amputation (CPT 00402), #2 Excisional debridement right iliac crest (wound [...] Chronic obstructive lung disease (HCC) Morbid obesity ([facility]) Migraine headache Vitamin D deficiency Viral upper respiratory tract infection 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[facility]) Swelling of left lower extremity Shortness of breath Seasonal allergies Superficial incisional surgical site infection Rheumatoid arthritis ([facility]) Restless legs syndrome Anxiety Arthritis of right [...] (BMI) Gastroesophageal reflux disease Hiatal hernia Callosity MCFP (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 antibiotics Left leg cellulitis Dehiscence of closure of skin, sequela Necrotizing soft tissue infection Infected wound Osteomyelitis ([facility]) Hematoma Cellulitis of right foot Post-op pain Osteomyelitis of right foot ([facility]) Open wound of right foot MSSA (methicillin susceptible Staphylococcus aureus) infection Right foot infection Hardware complicating wound infection (CMS/HCC) ([facility]) Right foot pain Postoperative pain Cellulitis Lymphedema Stump pain ([facility]) Abrasion of lower leg with infection, initial encounter PE (pulmonary thromboembolism) ([facility]) Surgical wound infection HLD (hyperlipidemia) Superficial venous thrombosis of left upper extremity Cellulitis of left lower extremity 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, initial encounter ([facility]) PAGING: The Acute Pain Service providers are available exclusively via [employer]. APS does not utilize pagers. * Maximino Aceves JD, MD - 06/01/2023 5:58 AM EDT Department of Orthopedic Surgery Progress Note SUBJECTIVE: No issues overnight. Having shoulder pain after trying to pull herself up in bed. OBJECTIVE: General: alert and oriented to person, place and time, well-developed and well- nourished, in no acute distress, denies chest pain and shortness of breath VITALS: BP 102/70 (BP Location: Right arm, Patient Position: Lying) Pulse 96 Temp 36.8 C (98.3 F) (Temporal) Resp 16 Ht 1.702 m (5' 7.01) Wt (!) 145 kg (320 lb) SpO2 94% BMI 50.11 kg/m MSK exam: Left LE: Wound vac C/D/I with intact suction SILT to stump Motor +Hip flexion Extremity is warm and well perfused, BCR <2s Labs: Type and Screen: Lab Results Component Value Date RH POS 05/31/2023 INR: Lab Results Component Value Date INR 1.0 05/30/2023 CRP: No results found for: CRP ESR: No results found for: SEDRATE ASSESSMENT AND PLAN: This is a 62 y.o. female s/p L AKA I&D with wound vac application on 05/29,rpt I&D wvac 06/01 RTOR for repeat I&D 06/[address] Mercado Add/consent p NPO 06/05@[place] Veraflow vac to LLE, do not change, will change in OR Med c/s ID c/s - abx per ID APS c/s NWB LLE Neuro/skin checks OR cultures pending (+GPCs) Ortho 1 , page manager acquisition resident with questions/concerns * Cristian Maxwell DO - 05/31/2023 10:35 PM EDT Images from the original note were not included. [facility] - Infectious Diseases Attending Progress Note Subjective: Following for SSTI of LLE AKA site. During my assessment, patient reports that she is feeling well overall. She reports mild pain in the area of the L AKA stump. Wound VAC is in place; no visible drainage is present. She denies f/c, n/v/d, SOB, cough, or abdominal pain. No further complaints at this time. Objective: Vitals: Patient Vitals for the past 24 hrs: BP Temp Temp src Pulse Resp SpO2 05/31/23 1935 102/70 36.8 C (98.3 F) Temporal 96 16 94 % 05/31/23 1806 (!) 158/89 (!) 35.5 C (95.9 F) Temporal 98 16 92 % 05/31/23 1445 132/89 -- -- 78 12 95 % 05/31/23 1430 (!) 148/82 -- -- 87 19 95 % 05/31/23 1415 (!) 140/89 -- -- 83 13 99 % 05/31/23 1408 136/80 36.3 C (97.3 F) -- 83 14 98 % 05/31/23 1354 106/64 36.4 C (97.6 F) Skin 75 15 99 % 05/31/23 1243 (!) 151/92 37 C (98.6 F) Temporal 87 16 94 % 05/31/23 0815 128/79 36.5 C (97.7 F) Temporal 77 16 94 % Physical Exam Constitutional: General: She is not in acute distress. Appearance: Normal appearance. She is normal weight. She is not ill-appearing, toxic-appearing or diaphoretic. HENT: Head: Normocephalic and atraumatic. Nose: Nose normal. Mouth/Throat: Mouth: Mucous membranes are moist. Pharynx: Oropharynx is clear. No oropharyngeal exudate or posterior oropharyngeal erythema. Eyes: General: No scleral icterus. Extraocular Movements: Extraocular movements intact. Pupils: Pupils are equal, round, and reactive to light. Cardiovascular: Rate and Rhythm: Normal rate and regular rhythm. Pulses: Normal pulses. Heart sounds: Normal heart sounds. No murmur heard. No friction rub. No gallop. Pulmonary: Effort: Pulmonary effort is normal. No respiratory distress. Breath sounds: Normal breath sounds. No wheezing, rhonchi or rales. Comments: Diminished breath sounds b/l Prolonged expiratory phase Abdominal: General: Abdomen is flat. Bowel sounds are normal. Palpations: Abdomen is soft. Tenderness: There is no abdominal tenderness. There is no guarding or rebound. Musculoskeletal: General: Swelling, tenderness, deformity and signs of injury present. Cervical back: Neck supple. Comments: s/p L AKA, R BKA Wound VAC in place on L AKA stump No surrounding erythema or discharge Skin: General: Skin is warm and dry. Capillary Refill: Capillary refill takes less than 2 seconds. Coloration: Skin is not pale. Findings: No erythema, lesion or rash. Neurological: General: No focal deficit present. Mental Status: She is alert. Psychiatric: Mood and Affect: Mood normal. Judgment: Judgment normal. Labs: Lab Results Component Value Date/Time NA 135 05/30/2023104 K 4.4 05/30/2023104 CL 100 05/30/2023104 CO2 26 05/30/2023104 BUN 15 05/30/2023104 CREATININE 0.76 05/30/2023104 CREATININE 0.70 02/14/2022 0918 GLUCOSE 220 (H) 05/30/2023104 CALCIUM 8.8 05/30/2023104 PROT 6.3 12/12/2022 0612 BILITOT 0.3 12/12/2022 0612 ALKPHOS 140 (H) 12/12/2022 0612 AST 24 12/12/2022 0612 ALT 18 12/12/2022 0612 PROCAL 0.04 12/04/2022 0149 PROCAL 0.02 11/11/2022 0301 PROCAL 1.77 (H) 01/25/2022 0618 Lab Results Component Value Date/Time WBC 6.9 05/30/2023104 HGB 11.7 05/30/2023104 HCT 36.7 05/30/2023104 PLT 293 05/30/2023104 GRANULOCYTES 66.9 02/14/2022 0918 LYMPHOPCT 10.4 (L) 05/30/2023104 MONOPCT 3.2 05/30/2023104 LABEOS 3.5 02/14/2022 0918 BASOPCT 0.3 05/30/2023104 NEUTROABS 6.0 05/30/2023 010 Micro: 05/22 LLE fluid CXs (+) for Finegoldia magna, MSSA 05/29 L thigh fluid CXs (+) for GPCs Lines/Drains/Airways: 05/29 RUE PIV Radiography/Echo/Other: None Antimicrobials, Start/End Dates: 05/29-05/30 cefazolin 05/30- ertapenem 05/30- vancomycin Impression: Ms. Haas is a 62 y/o F w/ PMH of LLE NF s/p debridement and L AKA, R BKA, COPD/asthma on home O2, prior b/l PE 08/2022 (AC on apixaban), FAY on BIPAP, GERD, HTN, OA, depression, fibromyalgia. She presented to [facility] to the orthopedics service 05/28; she was seen 1w postop by ortho following I&Dof L thigh hematoma. CXs obtained at the time were (+) for Finegoldia magna, MSSA. She was taken for I&D of abscess; CXs (+) for GPC. Previously seen by the ID service for LLE OM. The ID service is consulted for LLE AKA SSTI d/t MSSA, Finegoldia magna. Plan: 1. SSTI of LLE AKA site - Patient presented to orthopedic service d/t L AKA hematoma - s/p I+D; CXs pending; previous CXs (+) for MSSA, Finegoldia - Orthopedics following; plan is for repeat washout next week - Will follow CX results and adjust accordingly 2. Chronic obstructive pulmonary disease- on home O2 3. Obstructive sleep apnea- on BiPAP 4. Prior b/l PE 08/2022- AC on apixaban 5. Hx of R foot OM s/p R BKA 6. Gastroesophageal reflux disease 7. Stress urinary incontinence 8. Hypertension 9. Osteoarthritis 10. Obesity 11. Seasonal allergies 12. Vertigo 13. Asthma 14. Depression 15. Fibromyalgia Recommendations: 1. Maintain IV vancomycin + ertapenem 2. Will follow CX results and adjust accordingly 3. Will plan for 6-week total course of therapy The ID service will continue to follow. Based on diagnoses and management, combination of acute and chronic problems, exacerbations and/or acuity, this visit should be considered to be of moderate complexity. Cristian Maxwell DO [facility] Infectious Diseases Office Tel. [phone] * Farrukh Tim MD - 05/31/2023 2:16 PM EDT Post op Plan: -Plan for return to the OR for repeat debridement on 06/05/2023 with possible closure -New OR cultures taken today after debridement, if cultures are negative by Sunday, we will close the wound -Vera flow VAC to left AKA wound -Do not change VAC, will change VAC or close wound on Sunday -Consent pending -Case added -Preoperative labs on Sunday pending -Nonweightbearing left lower extremity -Previous OR cultures from 05/29 with positive GPC's, cultures from 05/22 positive for Finegoldia magna, ID consulted, appreciate recommendations -Continue abx per ID -APS consult, appreciate management -Medicine consult, appreciate management -Ortho primary, please page on-call resident with any questions or concerns * Xochitl Figueroa MD - 05/31/2023 1:15 PM EDT Images from the original note were not included. Hospitalist Progress Note Subjective: Admit Date: 05/29/2023 PCP: Oj Maddox Room#: OR/NONE Interval History: No overnight issues. Family at bedside, plan for repeat I&D today. Denies chest pain, sob, abdominal pain, nausea, vomiting, diarrhea, constipation, fevers, or chills. NPO diet @[id number]@ 24HR INTAKE/OUTPUT: Intake/Output Summary (Last 24 hours) at 05/31/2023 1315 Last data filed at 05/31/2023 0418 Gross per 24 hour Intake 871.66 ml Output 1600 ml Net -728.34 ml 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) 07/27/2020 Asthma Cellulitis Constipation Depression Difficult intubation 12/04/2022 Fibromyalgia GERD (gastroesophageal reflux disease) History of transfusion Hx of right BKA (CMS/HCC) (HCC) Hypertension Morbidly obese (HCC) 02/03/2019 BMI 50.52 On home O2 FAY treated with BiPAP Osteoarthritis Osteomyelitis of right foot (HCC) SCHEDULED FOR THE SURGERY ON 02/11/2019 Pulmonary embolism (HCC) Seasonal allergies Shortness of breath URSULA (stress urinary incontinence, female) Vertigo LABS: CBC: Recent Labs 05/30/23 010 WBC 6.9 RBC 4.29 HGB 11.7 HCT 36.7 MCV 85.5 RDW 14.5 PLT 293 BMP: Recent Labs 05/30/23 010 NA 135 K 4.4 CL 100 CO2 26 BUN 15 CREATININE 0.76 GLUCOSE 220* CALCIUM 8.8 ANIONGAP 9 LIVER PROFILE:No results for input(s): AST, ALT, BILITOT, ALKPHOS, PROT in the last 72 hours. No lab exists for component: LABALBU PT/INR: Recent Labs 05/30/23104 PROTIME 10.4 INR 1.0 CARDIAC ENZYMES: No results for input(s): TROPONINI in the last 72 hours. Procalcitonin: No results found for: PROCAL COVID-19 PCR: No results for input(s): COVID19 in the last 72 hours. Objective: Vitals: BP (!) 151/92 Pulse 87 Temp 37 C (98.6 F) (Temporal) Resp 16 Ht 5' 7.01 (1.702 m) Wt (!) 320 lb (145 kg) SpO2 94% BMI 50.11 kg/m Pulse Ox: SpO2 Av % Min: 94 % Max: 94 % Supplemental O2: O2 Flow Rate (L/min): 3 L/min Patient is alert, awake, oriented x 3 No pallor, Icterus No JVD Heart S1 S2 No murmurs Lungs clear to auscultation Abdomen soft non distended no organomegaly Left AKA - wrapped. Right BKA, drain in L stump. No focal neurological deficits Medications: lactated Ringer's, 50 mL/hr, Last Rate: 50 mL/hr (05/31/23 0418) [NOV Hold] acetaminophen, 650 mg, Oral, Q4H [Nov] amitriptyline, 100 mg, Oral, Nightly [Nov] citalopram, 20 mg, Oral, Daily [Nov] docusate sodium, 100 mg, Oral, BID [Nov] enoxaparin, 30 mg, SubCUTAneous, 2 times per day [Nov] ertapenem, 1,000 mg, IntraVENous, q24h [Nov] gabapentin, 300 mg, Oral, BID [Nov] Lidocaine, 1 patch, Topical, Daily [Nov] mometasone-formoterol, 2 puff, Inhalation, BID [Nov] montelukast, 10 mg, Oral, Daily [Nov] pantoprazole, 40 mg, Oral, qAM AC [Nov] vancomycin, 1,250 mg, IntraVENous, q12h Assessment LLE hematomas s/p left thigh AKA Hx of LLE OM s/p AKA (10/2022) Hx of Right foot OM s/p right BKA SONG Debility Hx of PE/DVT on Eliquis COPD on home O2 FAY/OHS on BiPAP Peripheral neuropathy Stress urinary incontinence Fibromyalgia GERD Depression Vertigo Morbid obesity - BMI 50.12 Plan - plan for repeat I&D today - wound vac in place in L stump, skin healed, - ID on board, on iv antibiotics - received cefazolin yesterday, wound swab gram stain shows rare gram pos cocci in clusters, cultures neg to date. -am labs, replace lytes prn -increase activity -DVT prophylaxis: [] Lovenox [] Heparin [] SCDs [x] Encourage ambulation [] Already on Anticoagulation Advance Directive: Full Code Discharge planning: TBD Total time spent (which include face to face and non face to face encounters) : 42 minutes Toxic drug monitoring/narrow therapeutic index drug monitoring : # Drug name : # Route administered : # Method of monitoring : Xochitl Figueroa MD 05/31/2023 Division of Hospitalist Medicine Inpatient Medical Services/[facility] [place] PAGER: [phone] * Carolina Carrillo PharmD - 05/31/2023 9:29 AM EDT Pharmacy Managed Vancomycin Dosing Service Consult Note Recent Labs 05/30/23 0105 BUN 15 CREATININE 0.76 Updated InsightRx: [x] doses administered [] SCr [] random level Current regimen vancomycin 1250 mg every 12 hours, predicted AUC = 448 mg/L*hr (goal 400-600 mg/L*hr) AUC therapeutic. Continue current dosing. Next level due 06/01 with AM labs. Will continue to follow. Note serum creatinine trend, continue to monitor renal function. DATE: 05/31/23 Time: 9:29 AM Carolina Carrillo PharmD * Maximino cAeves JD, - 05/31/2023 6:20 AM EDT Department of Orthopedic Surgery Progress Note SUBJECTIVE: No issues overnight. Hoping to get surgery done today as soon as possible. In good spirits. OBJECTIVE: General: alert and oriented to person, place and time, well-developed and well- nourished, in no acute distress, denies chest pain and shortness of breath VITALS: BP 138/79 (BP Location: Left arm, Patient Position: Sitting) Pulse 96 Temp 36.5 C (97.7F) (Temporal) Resp 16 Ht 1.702 m (5' 7.01) Wt (!) 145 kg (320 lb) SpO2 94% BMI 50.11 kg/m MSK exam: Left LE: Wound vac C/D/I with adequate suction SILT to stump Motor +Hip flexion Extremity is warm and well perfused, BCR <2s Labs: Type and Screen: Lab Results Component Value Date RH POS 05/31/2023 INR: Lab Results Component Value Date INR 1.0 05/30/2023 CRP: No results found for: CRP ESR: No results found for: SEDRATE ASSESSMENT AND PLAN: This is a 62 y.o. female s/p L AKA I&D with wound vac application on 05/29 with plan for repeat I&D on 05/31. RTOR for repeat I&D today with Dr Mercado Added case Consented Veraflow vac to LLE, do not change, will change in OR Med c/s ID c/s - abx per ID APS c/s NWB LLE Neuro/skin checks OR cultures pending (+GPCs) Ortho 1 , page manager acquisition resident with questions/concerns * Xochitl Figueroa MD - 05/30/2023 2:02 PM EDT Images from the original note were not included. Hospitalist Progress Note Subjective: Admit Date: 05/29/2023 PCP: Oj Maddox Room#: [id number] A Interval History: No overnight issues. Denies chest pain, sob, abdominal pain, nausea, vomiting, diarrhea, constipation, fevers, or chills. Adult diet Regular NPO diet @[id number]@ 24HR INTAKE/OUTPUT: Intake/Output Summary (Last 24 hours) at 05/30/2023 1402 Last data filed at 05/30/2023 0536 Gross per 24 hour Intake 1450 ml Output 825 ml Net 625 ml 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 ([facility]) 07/27/2020 Asthma Cellulitis Constipation Depression Difficult intubation 12/04/2022 Fibromyalgia GERD (gastroesophageal reflux disease) History of transfusion Hx of right BKA (CMS/HCC) (HCC) Hypertension Morbidly obese (HCC) 02/03/2019 BMI 50.52 On home O2 FAY treated with BiPAP Osteoarthritis Osteomyelitis of right foot ([facility]) SCHEDULED FOR THE SURGERY ON 02/11/2019 Pulmonary embolism ([facility]) Seasonal allergies Shortness of breath URSULA (stress urinary incontinence, female) Vertigo LABS: CBC: Recent Labs 05/30/23 0105 WBC 6.9 RBC 4.29 HGB 11.7 HCT 36.7 MCV 85.5 RDW 14.5 PLT 293 BMP: Recent Labs 05/30/23 0105 NA 135 K 4.4 CL 100 CO2 26 BUN 15 CREATININE 0.76 GLUCOSE 220* CALCIUM 8.8 ANIONGAP 9 LIVER PROFILE:No results for input(s): AST, ALT, BILITOT, ALKPHOS, PROT in the last 72 hours. No lab exists for component: LABALBU PT/INR: Recent Labs 05/30/23 0105 PROTIME 10.4 INR 1.0 CARDIAC ENZYMES: No results for input(s): TROPONINI in the last 72 hours. Procalcitonin: No results found for: PROCAL COVID-19 PCR: No results for input(s): COVID19 in the last 72 hours. Objective: Vitals: BP 131/81 Pulse 92 Temp 36.4 C (97.6 F) (Temporal) Resp 16 Ht 5' 7.01 (1.702 m) Wt (!) 320 lb (145 kg) SpO2 93% BMI 50.11 kg/m Pulse Ox: SpO2 Av.2 % Min: 93 % Max: 96 % Supplemental O2: O2 Flow Rate (L/min): 3 L/min Patient is alert, awake, oriented x 3 No pallor, Icterus No JVD Heart S1 S2 No murmurs Lungs clear to auscultation Abdomen soft non distended no organomegaly Left AKA - wrapped. Right BKA, drain in L stump. No focal neurological deficits Medications: lactated Ringer's, 50 mL/hr, Last Rate: 50 mL/hr (05/29/23 1129) acetaminophen, 650 mg, Oral, Q4H amitriptyline, 100 mg, Oral, Nightly citalopram, 20 mg, Oral, Daily docusate sodium, 100 mg, Oral, BID enoxaparin, 30 mg, SubCUTAneous, 2 times per day gabapentin, 300 mg, Oral, BID Lidocaine, 1 patch, Topical, Daily mometasone-formoterol, 2 puff, Inhalation, BID montelukast, 10 mg, Oral, Daily pantoprazole, 40 mg, Oral, qAM AC Assessment LLE hematomas s/p left thigh AKA I&D POD # 0 Hx of LLE OM s/p AKA (10/2022) Hx of Right foot OM s/p right BKA SONG Debility Hx of PE/DVT on Eliquis COPD on home O2 FAY/OHS on BiPAP Peripheral neuropathy Stress urinary incontinence Fibromyalgia GERD Depression Vertigo Morbid obesity - BMI 50.12 Plan - wound vac in place in L stump, skin healed, - ID consult pending, - received cefazolin yesterday, wound swab gram stain shows rare gram pos cocci in clusters, cultures neg to date. -am labs, replace lytes prn -increase activity -DVT prophylaxis: [] Lovenox [] Heparin [] SCDs [x] Encourage ambulation [] Already on Anticoagulation Advance Directive: Full Code Discharge planning: TBD Total time spent (which include face to face and non face to face encounters) : 40 minutes Toxic drug monitoring/narrow therapeutic index drug monitoring : # Drug name : # Route administered : # Method of monitoring : Xochitl Figueroa MD 05/30/2023 Division of Hospitalist Medicine Inpatient Medical Services/[facility] [place] PAGER: [phone] * Siobhan Duran RD - 05/30/2023 9:09 AM EDT Nutrition Assessment Type and Reason for Visit: Initial, Positive Nutrition Screen (wound) Nutrition Recommendations/Plan: Continue with current diet. Recent BG 220- monitor need for additional CHO control restriction. Per MNT protocol will send Ensure Max BID (11 oz provides 150 kcals, 30 gm protein). Monitor weight, labs, I/O, skin assessment, and overall nutritional status. RD will follow up weekly. 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 female pmhx of depression, cellulitis, left AKA, right BKA, GERD, fibromyalgia, osteoarthritis, morbid obesity, HTN, pulmonary embolism. Patient has had recurrent hematomas of the left lower extremity. Wound VAC was beeping and given error message that was clogged throughout the weekend. She started Bactrim therapy last Sunday. Ortho is following. She underwent L AKA I&D with wound vac application on 05/29 and plan for repeat I&D on 05/31. Patient seen the am by RD. She drinks mocha flavored Premier Protein Shake BID. Patient does not care much for chocolate flavored Ensure Max,but willing to consume until her son brings her Premier Protein Shakes. States her weight was around 320# in December before her amputation. Bed scale weight: 355#. Patient wants to watch what she eats due to weight gain. She does not always eat 3 meals per day. She enjoys menu options here and wrote down her next several meals here. Encouraged high protein foods for healing. Estimated Daily Nutrient Needs: Energy Requirements Based On: Kcal/kg Weight Used for Energy Requirements: Adjusted Weight for Energy Calculation (kg): 52 kg Total Energy Requirements (kcals/day): 7150-1170 kcals per day (25-30) Weight Used for Protein Requirements: Adjusted Weight in Kg Used for Protein Requirements: 52 kg Estimated Total Protein (g/day): 62-78 gm per day (1.2-1.5) Estimated Daily Total Fluid (ml/day): Per MD Nutrition Related Findings: Rudi = 16, GI WDL, non pitting BLE edema, I/O: +794.2 Wound Type: Wound Vac, Surgical Incision BMP: Recent Labs 05/30/23 0105 NA 135 K 4.4 CL 100 CO2 26 BUN 15 CREATININE 0.76 GLUCOSE 220* CALCIUM 8.8 11/17/22 A1C 5.4% Scheduled Medications: acetaminophen, 650 mg, Oral, Q4H amitriptyline, 100 mg, Oral, Nightly ceFAZolin, 3,000 mg, IntraVENous, q8h citalopram, 20 mg, Oral, Daily docusate sodium, 100 mg, Oral, BID enoxaparin, 30 mg, SubCUTAneous, 2 times per day gabapentin, 300 mg, Oral, BID Lidocaine, 1 patch, Topical, Daily mometasone-formoterol, 2 puff, Inhalation, BID montelukast, 10 mg, Oral, Daily pantoprazole, 40 mg, Oral, qAM AC Current Nutrition Therapies: Adult diet Regular NPO diet Current Oral Intake Average Meal Intake: Unable to assess Average Supplements Intake: None Ordered Anthropometric Measures: Height: 170.2 cm (5' 7.01) Current Body Weight: 161 kg (355 lb) (05/30/23) Weight Source: Bed Scale (RD removed blankets and wound vac apparatus from bed) Admission Body Weight: 145 kg (319 lb 10.7 oz) (stated on 05/29/23) [place] Body Weight (lbs) (Calculated): 135 lbs [place] Body Weight (Kg) (Calculated): 61 kg % [place] Body Weight (Calculated): 263 % BMI (kg/m2) (Calculated): 55.6 Weight Adjustment For: Amputation % Weight Adjustment: 5.9 - BKA, 10.1 - AKA Total Adjusted Percentage (Calculated): 16 Adjusted [place] Body Weight (lbs) (Calculated): 113.4 lbs Adjusted [place] Body Weight (kg) (Calculated): 51.55 kg Adjusted BMI (kg/m2) (Calculated): 64.5 BMI Categories: Obese Class 3 (BMI 40.0 or greater) Nutrition Diagnosis: Increased nutrient needs related to increase demand for energy/nutrients (healing and skin integrity) as evidenced by wounds Nutrition Interventions: Nutrition Education/Counseling: No recommendation at this time Coordination of Nutrition Care: Continue to monitor while inpatient Plan of Care discussed with: patient Goals: Goals: PO intake 50% or greater, by next RD assessment Nutrition Monitoring and Evaluation: Behavioral-Environmental Outcomes: None Identified Food/Nutrient Intake Outcomes: Food and Nutrient Intake, Supplement Intake Physical Signs/Symptoms Outcomes: Biochemical Data, GI Status, Fluid Status or Edema, Meal Time Behavior, Nutrition Focused Physical Findings, Skin, Weight Discharge Planning: Too soon to determine Siobhan Duran RD Contact: *[phone] * Sarah Guajardo MD - 05/30/2023 6:07 AM EDT Department of Orthopedic Surgery Progress Note SUBJECTIVE: Patient doing well, pain well controlled, NAEO. Denies fevers or chills. OBJECTIVE: General: alert and oriented to person, place and time, well-developed and well- nourished, in no acute distress, denies chest pain and shortness of breath VITALS: BP (!) 129/98 (BP Location: Left arm, Patient Position: Lying) Pulse 105 Temp 36.7 C (98 F) (Temporal) Resp 16 Ht 1.702 m (5' 7) Comment: chi AKA Wt (!) 145 kg (320 lb) SpO2 93% BMI 50.12 kg/m MSK exam: Left LE: Wound vac C/D/I with adequate suction SILT: +lateral femoral cutaneous, anterior femoral cutaneous and posterior femoral cutaneous nerve distributions Motor +Hip flexion Extremity is warm and well perfused Labs: Type and Screen: No results found for: RH, LABANTI INR: Lab Results Component Value Date INR 1.0 05/30/2023 CRP: No results found for: CRP ESR: No results found for: SEDRATE ASSESSMENT AND PLAN: This is a 62 y.o. female s/p L AKA I&D with wound vac application on 05/29 with plan for repeat I&D on 05/31. RTOR for repeat I&D on 05/31 Added case Consented Clearance pending Veraflow vac to LLE, do not change, will change in OR Med c/s pending ID c/s pending APS c/s pending NWB LLE Neuro/skin checks Ancef x24Hr OR cultures pending (+GPCs) Ortho 1 , page manager acquisition resident with questions/concerns Sarah Guajardo MD Orthopedic Surgery PGY-2 05/30/2023 at 6:08 AM documented in this [facility]09-08-2023 Note* Care Coordination - Ara Stubbs RN - 06/08/2023 10:56 AM EDT Images from the original note were not included. Care Management Progress Note Patient remains on H6 s/p repeat I&D with VAC placement at AKA incision. Discharge plan home with [facility] Infusion/Care. Awaiting Wound Vac deliver to room. Patient confirms that she has spoketo her insurance company 3rd constitution party payor and that she has transportation home. Confirmed with [employer] entry level account representative that WV will be delivered to H6. Discharge Milestones and Delays Expected Date/Time: 06/08/[address] discharge order Complete med reconciliation Case mgmt discharge readiness Clinical Stability Diagnsotic Workup Expected Discharge History Expected Date/Time Set By Reviewed At 06/08/2023 Midday CHRISTINE Rachel 06/08/2023 9:08 AM 06/08/2023 Midday CHRISTINE Rachel 06/07/2023 9:13 AM 06/07/2023 Midday CHRISTINE Rachel 06/06/2023 9:27 AM 06/07/2023 Midday Beau Comer RN 06/05/2023 7:58 AM 06/07/2023 Midday Beau Comer RN 06/01/2023 8:07 AM 06/03/2023 Midday Ara Stubbs RN 05/31/2023 8:47 AM 06/03/2023 Janessa Nava RN 05/30/2023 7:42 AM 06/03/2023 Farrukh Tim MD 05/29/2023 2:40 PM 06/03/2023 Farrukh Tim MD 05/29/2023 12:53 PM 06/05/2023 CARMELA Ramos 05/29/2023 9:05 AM Length of Stay (Days): 10 GMLOS: 5.5 [id number]* Care Coordination - Ara Stubbs RN - 06/08/2023 10:56 AM EDT Images from the original note were not included. Care Management Progress Note Patient remains on H6 s/p repeat I&D with VAC placement at AKA incision. Discharge plan home with [facility]fusion/Care. Awaiting Wound Vac deliver to room. Patient confirms that she has spoketo her insurance company 3rd constitution party payor and that she has transportation home. Confirmed with [employer] entry level account representative that WV will be delivered to H6. Discharge Milestones and Delays Expected Date/Time: 06/08/[address] discharge order Complete med reconciliation Case mgmt discharge readiness Clinical Stability Diagnsotic Workup Expected Discharge History Expected Date/Time Set By Reviewed At 06/08/2023 Midday CHRISTINE Rachel 06/08/2023 9:08 AM 06/08/2023 Midday CHRISTINE Rachel 06/07/2023 9:13 AM 06/07/2023 Midday Moriah MalvinCHRISTINE Canela 06/06/2023 9:27 AM 06/07/2023 Midday Beau Comer RN 06/05/2023 7:58 AM 06/07/2023 Midday Beau Comer RN 06/01/2023 8:07 AM 06/03/2023 Midday Ara Stubbs RN 05/31/2023 8:47 AM 06/03/2023 Janessa Nava RN 05/30/2023 7:42 AM 06/03/2023 Farrukh Tim MD 05/29/2023 2:40 PM 06/03/2023 Farrukh Tim MD 05/29/2023 12:53 PM 06/05/2023 CARMELA Ramos 05/29/2023 9:05 AM Length of Stay (Days): 10 GMLOS: 5.5 [facility] [id number] Note* Care Coordination - Ara Stubbs RN - 06/07/2023 10:58 AM EDT Images from the original note were not included. Care Management Progress Note Patient remains on H6 s/p repeat I&D with VAC placement at [facility] awaiting insurance authorization for Wound Vac. SHILAI/[employer] Medical Attendant informed me: Patient has [employer] O which authorization needs to go through a 3rd constitution party processor which will contact the Patient directly for their co-pay. Once processed and Patient agreeable, the WV will need delivered by a driver license examiner. [employer] DMT cannot be used. Informed patient that a entry level account representative from [employer] will call her and to notify her Staff Nurse/TCC once received who will then notify [employer] Medical Attendant to have WV delivered to the floor. OPAT received for home infusion and Home Care/Infusion set up. Patient will need to get daily IV Abx before discharge. [facility] Digital Sales Director aware. Discharge Milestones and Delays Expected Date/Time: 06/08/[address] discharge order Complete med reconciliation Case mgmt discharge readiness Clinical Stability Diagnsotic Workup Expected Discharge History Expected Date/Time Set By Reviewed At 06/08/2023 Midday CHRISTINE Rachel 06/07/2023 9:13 AM 06/07/2023 Midday CHRISTINE Rachel 06/06/2023 9:27 AM 06/07/2023 Midday Beau Comer RN 06/05/2023 7:58 AM 06/07/2023 Midday Beau Comer RN 06/01/2023 8:07 AM 06/03/2023 Midday Ara Stubbs RN 05/31/2023 8:47 AM 06/03/2023 Janessa Nava RN 05/30/2023 7:42 AM 06/03/2023 Farrukh Tim MD 05/29/2023 2:40 PM 06/03/2023 Farrukh Tim MD 05/29/2023 12:53 PM 06/05/2023 CARMELA Ramos 05/29/2023 9:05 AM Length of Stay (Days): 9 GMLOS: 5.5 [id number] [facility]* Care Coordination - Ara Stubbs RN - 06/07/2023 10:58 AM EDT Images from the original note were not included. Care Management Progress Note Patient remains on H6 s/p repeat I&D with VAC placement at [facility] awaiting insurance authorization for Wound Vac. GIOVANNI/[employer] Medical Attendant informed me: Patient has [employer] O which authorization needs to go through a 3rd constitution party processor which will contact the Patient directly for their co-pay. Once processed and Patient agreeable, the WV will need delivered by a driver license examiner. [employer] DMT cannot be used. Informed patient that a entry level account representative from [employer] will call her and to notify her Staff Nurse/TCC once received who will then notify [employer] Medical Attendant to have WV delivered to the floor. OPAT received for home infusion and Home Care/Infusion set up. Patient will need to get daily IV Abx before discharge. [facility] Digital Sales Director aware. Discharge Milestones and Delays Expected Date/Time: 06/08/[address] discharge order Complete med reconciliation Case mgmt discharge readiness Clinical Stability Diagnsotic Workup Expected Discharge History Expected Date/Time Set By Reviewed At 06/08/2023 Midday CHRISTINE Rachel 06/07/2023 9:13 AM 06/07/2023 Midday CHRISTINE Rachel 06/06/2023 9:27 AM 06/07/2023 Midday Beau Comer RN 06/05/2023 7:58 AM 06/07/2023 Midday Beau Comer RN 06/01/2023 8:07 AM 06/03/2023 Midday Ara Stubbs RN 05/31/2023 8:47 AM 06/03/2023 Janessa Nava RN 05/30/2023 7:42 AM 06/03/2023 Farrukh Tim MD 05/29/2023 2:40 PM 06/03/2023 Farrukh Tim MD 05/29/2023 12:53 PM 06/05/2023 CARMELA Ramos 05/29/2023 9:05 AM Length of Stay (Days): 9 GMLOS: 5.5 [id number] [facility]* Home Care - Micki Garcia RN - 06/06/2023 3:55 PM EDT Start PACC Note Home Health Referral Educated patient on Home Care and services available. Patient offered choice of available HHC and agreeable to SN, PT, OT services with [facility]. Care Types: None Isolation Precautions: No active isolations Social Determinates of Health: Tobacco Use: Medium Risk (06/06/2023) Patient History Smoking Tobacco Use: Former Smokeless Tobacco Use: Never Passive Exposure: Past Social History Substance and Sexual Activity Alcohol Use Not Currently Social History Substance and Sexual Activity Drug Use No Does the patient have any financial resource strain? No Does the patient have any food insecurities? No Does the patient have any housing instabilities? No If any of the above is noted as yes - consider a DAY CARE PROVIDER evaluation once the patient returns home. START PATIENT REGISTRATION INFORMATION Order Information Order Signing Physician: Rusty Mercado MD Service Ordered RN ?: Yes Service Ordered PT ?: Yes Service Ordered OT ?: Yes Service Ordered ST ?: No Service Ordered DAY CARE PROVIDER?:No Service Ordered TIME CLOCK INSPECTOR?: No Following Physician: Dr Rusty Mercado Following Physician Overseeing Physician: MINERVA (Required for Residents only) Agreeable to Follow? Yes Date/Time of Call 06/06/23 3:55 PM, Spoke with: Dr Patel Care Coordination Same Day SOC?: No Primary Care Physician: Oj Maddox Primary Care Physician Primary Care Physician Address: [address] [place] [id number] Visit Instructions: N/A Service Discharge Location Type: Home with Home Health Care Service Facility Name: N/A Service Floor Facility: N/A Service Room No: N/A Demographics Patient Last Name: Waldo Patient First Name: Siobhan Language/Communication Barrier: N/A Service Address: [address] [place] [address] Service City: [facility] ST: [place] Service ZIP: [address] Service Other phone numbers: Telephone Information: Emergency Contact: Extended Emergency Contact Information Primary Emergency Contact: RaghavendramomoLuz Marina Relation: Child Secondary Emergency Contact: BinhDominga Relation: Sister Admission Information Admit Date: 05/29/2023 Patient status at discharge: Inpatient Admitting Diagnosis 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, initial encounter ([facility]) [Z28.112A] 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, initial encounter ([facility]) [H47.112Y] Caregiver Information Caregiver First Name: Deacon Caregiver Last Name: Waldo Caregiver Relationship to Patient son Caregiver Caregiver Notes: N/A HITECH [employer] List HIGHTECH: HI TECH - IV Orders: see hard copy order IV Method of Administration: IV Date and Time of Next Dose Due: 06/09/2023 approx 11am Infusion Company: [facility] Infectious Disease Physician: Dr Cristian Maxwell Teachable Caregiver Teachable Caregiver First Name: Deacon Teachable Caregiver Last Name: Waldo Teachable Caregiver Relationship to Patient: son Teachable Caregiver Teachable Caregiver Notes: N/A Teachable Caregiver available for SOC visit?: Yes Teachable Caregiver agreeable to provide skilled HITECH care per physician's orders?: Yes [place]: [email or web address] TECH - NON-DISP VAC Orders: yes Orders in case of wound Vac failure: yes Comments: N/A Following physician: Dr Mercado Is patient teachable for wet-to-dry dressing change?: Yes Backup Wet-to-Dry dressing at home?: Yes Foam Type: Black Supplies at home?: Yes Date of last vac dressing change: 06/08/2023 Company: [employer]: [employer] - LABS Orders: BMP, Hemogram w/diff, CK to be drawn every week. Send results to [phone]. Following Physician/Facility: Dr Hans LANDA: [email or web address] TECH - PICC CARE Line and Location: Location: Right basilic Catheter type: Double lumen Catheter size: 5 Fr Lot #: [id number] Trimmed at (cm): 51 Inserted at (cm): 51 Orders: Flush PICC with 10cc NS, administer medication, flush with 10cc NS and end with 5ml heparinflush. Change PICC dressing weekly and PRN. END PATIENT REGISTRATION INFORMATION Pt Home Health goal home COVID Status 1. Do you have any upper respiratory symptoms (cough, SOB, Fever)? No 2. Have you been exposed to anyone with COVID-19 Virus? No Answer only if pending or positive for COVID-19? 1. Agreeable to wear PPE at each visit? N/A 2. Is the hospital supplying them with PPE upon Discharge? N/A Start PACC Summary General Report/ Additional Comments Pt's Left AKA stump with full thickness surgical wound measuring 2 x 8 x 3.5cm deep (with pt holding stump up). Wound bed with red tissues (see photo below) Periwound clear, no erythema or indurationnoted. Small amount of serosang drainage noted in VAC canister. No odor, purulence or active bleeding noted. Wound and periwound cleansed with saline, patted dry and cavilon no sting applied to periwound. 1 piece of black foam applied to wound. Trac pad bridged to anterior aspect of stump. Small piece of coloplast strip paste/Adapt ring used at medial skin crease (at healed incision) to help achieve/maintain wound VAC seal. Wound VAC well sealed at 125 mmHg continuous suction. Discharge Date: 06/08/2023 Referral Source-PACC: (Hospital/Unit): [facility] / H-6120/H-6120 A End PACC Note [id number] [facility]* Home Care - Micki Garcia RN - 06/06/2023 3:55 PM EDT Start PACC Note Home Health Referral Educated patient on Home Care and services available. Patient offered choice of available HHC and agreeable to SN, PT, OT services with [facility]. Care Types: None Isolation Precautions: No active isolations Social Determinates of Health: Tobacco Use: Medium Risk (06/06/2023) Patient History Smoking Tobacco Use: Former Smokeless Tobacco Use: Never Passive Exposure: Past Social History Substance and Sexual Activity Alcohol Use Not Currently Social History Substance and Sexual Activity Drug Use No Does the patient have any financial resource strain? No Does the patient have any food insecurities? No Does the patient have any housing instabilities? No If any of the above is noted as yes - consider a DAY CARE PROVIDER evaluation once the patient returns home. START PATIENT REGISTRATION INFORMATION Order Information Order Signing Physician: Rusty Mercado MD Service Ordered RN ?: Yes Service Ordered PT ?: Yes Service Ordered OT ?: Yes Service Ordered ST ?: No Service Ordered DAY CARE PROVIDER?:No Service Ordered TIME CLOCK INSPECTOR?: No Following Physician: Dr Rusty Mercado Following Physician Overseeing Physician: NA (Required for Residents only) Agreeable to Follow? Yes Date/Time of Call 06/06/23 3:55 PM, Spoke with: Dr Patel Care Coordination Same Day SOC?: No Primary Care Physician: Oj Maddox Primary Care Physician Primary Care Physician Address: [address] [place] [address] / [facility] [address] Visit Instructions: N/A Service Discharge Location Type: Home with Home Health Care Service Facility Name: N/A Service Floor Facility: N/A Service Room No: N/A Demographics Patient Last Name: Waldo Patient First Name: Siobhan Language/Communication Barrier: N/A Service Address: [address] Service City: [facility] ST: [place] Service ZIP: [address] Service Other phone numbers: Telephone Information: Emergency Contact: Extended Emergency Contact Information Primary Emergency Contact: Luz Marina Mueller Relation: Child Secondary Emergency Contact: Dominga Purcell Relation: Sister Admission Information Admit Date: 05/29/2023 Patient status at discharge: Inpatient Admitting Diagnosis 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, initial encounter ([facility]) [S78.112A] 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, initial encounter ([facility]) [S78.112A] Caregiver Information Caregiver First Name: Deacon Caregiver Last Name: Waldo Caregiver Relationship to Patient son Caregiver Caregiver Notes: N/A HITECH [employer] List HIGHTECH: HI TECH - IV Orders: see hard copy order IV Method of Administration: IV Date and Time of Next Dose Due: 06/09/2023 approx 11am Infusion Company: [facility] Infectious Disease Physician: Dr Cristian Maxwell Teachable Caregiver Teachable Caregiver First Name: Deacon Teachable Caregiver Last Name: Waldo Teachable Caregiver Relationship to Patient: son Teachable Caregiver Teachable Caregiver Notes: N/A Teachable Caregiver available for SOC visit?: Yes Teachable Caregiver agreeable to provide skilled HITECH care per physician's orders?: Yes HIGHTECH: HI TECH - NON-DISP VAC Orders: yes Orders in case of wound Vac failure: yes Comments: N/A Following physician: Dr Mercado Is patient teachable for wet-to-dry dressing change?: Yes Backup Wet-to-Dry dressing at home?: Yes Foam Type: Black Supplies at home?: Yes Date of last vac dressing change: 06/08/2023 Company: [employer]: [employer] Orders: BMP, Hemogram w/diff, CK to be drawn every week. Send results to [phone]. Following Physician/Facility: Dr Hans LANDA: [employer] - PICC CARE Line and Location: Location: Right basilic Catheter type: Double lumen Catheter size: 5 Fr Lot #: [id number] Trimmed at (cm): 51 Inserted at (cm): 51 Orders: Flush PICC with 10cc NS, administer medication, flush with 10cc NS and end with 5ml heparinflush. Change PICC dressing weekly and PRN. END PATIENT REGISTRATION INFORMATION Pt Home Health goal home COVID Status 1. Do you have any upper respiratory symptoms (cough, SOB, Fever)? No 2. Have you been exposed to anyone with COVID-19 Virus? No Answer only if pending or positive for COVID-19? 1. Agreeable to wear PPE at each visit? N/A 2. Is the hospital supplying them with PPE upon Discharge? N/A Start PACC Summary General Report/ Additional Comments Pt's Left AKA stump with full thickness surgical wound measuring 2 x 8 x 3.5cm deep (with pt holding stump up). Wound bed with red tissues (see photo below) Periwound clear, no erythema or indurationnoted. Small amount of serosang drainage noted in VAC canister. No odor, purulence or active bleeding noted. Wound and periwound cleansed with saline, patted dry and cavilon no sting applied to periwound. 1 piece of black foam applied to wound. Trac pad bridged to anterior aspect of stump. Small piece of coloplast strip paste/Adapt ring used at medial skin crease (at healed incision) to help achieve/maintain wound VAC seal. Wound VAC well sealed at 125 mmHg continuous suction. Discharge Date: 06/08/2023 Referral Source-PACC: (Hospital/Unit): [facility] / H-6120/H-6120 A End PACC Note [id number] [facility]* Care Coordination - Ara Stubbs RN - 06/06/2023 2:11 PM EDT [facility]/[employer] [place] signature obtained and faxed for W approval. Electronicallysigned by Ara Stubbs RN on 06/06/2023 at 2:12 PM [id number] Note* Care Coordination - Ara Stubbs RN - 06/06/2023 2:11 PM EDT I/[employer] [place] signature obtained and faxed for [place] approval. Electronicallysigned by Ara Stubbs RN on 06/06/2023 at 2:12 PM [facility] [id number] Note* Addendum Note - MITCH Butcher CNP - 06/06/2023 12:59 PM EDT Addendum created 06/06/23 1259 by MITCH Butcher CNP Clinical Note Signed [facility] Phone: 1(215) 644-336509-06-2023 NoteAddendum created 06/06/23 1259 by MITCH Butcher CNP [facility] Miscellaneous Notes* Addendum Note - MITCH Butcher CNP - 06/06/2023 12:59 PM EDT Addendum created 06/06/23 1259 by MITCH Butcher CNP Clinical Note Signed * Addendum Note - MITCH Butcher CNP - 06/06/2023 10:21 AM EDT Addendum created 06/06/23 1021 by MITCH Butcher CNP Pend clinical note, SmartForm saved * Addendum Note - MITCH Kaplan CNP - 06/01/2023 8:26 AM EDT Addendum created 06/01/23 08 by MITCH Kaplan CNP Pend clinical note, SmartForm saved * Addendum Note - MITCH Kaplan CNP - 06/01/2023 8:17 AM EDT Addendum created 06/01/23 0817 by MITCH Kaplan CNP Pend clinical note documented in this [facility]09-06-2023 Note* Care Coordination - Ara Stubbs RN - 06/06/2023 10:50 AM EDT Images from the original note were not included. Care Management Progress Note Patient remains on H6 s/p s/p repeat I&D with VAC placement at [facility] incision. IV Invanz and Vancomycin, ID following, PICC placed 06/05/23. Discharge plan home with [facility] insurance authorization started and faxed. Awaiting Surgeon signature, form on the front of the chart. Awaiting ID determination on IV Abx. Will need OPAT completed. Discharge Milestones and Delays Expected Date/Time: 06/07/[address] discharge order Complete med reconciliation Case mgmt discharge readiness Clinical Stability Diagnsotic Workup Expected Discharge History Expected Date/Time Set By Reviewed At 06/07/2023 Midday CHRISTINE Rachel 06/06/2023 9:27 AM 06/07/2023 Midday Beau Comer RN 06/05/2023 7:58 AM 06/07/2023 Midday Beau Comer RN 06/01/2023 8:07 AM 06/03/2023 Midday Ara Stubbs RN 05/31/2023 8:47 AM 06/03/2023 Janessa Nava RN 05/30/2023 7:42 AM 06/03/2023 Farrukh Tim MD 05/29/2023 2:40 PM 06/03/2023 Farrukh Tim MD 05/29/2023 12:53 PM 06/05/2023 CARMELA Ramos 05/29/2023 9:05 AM Length of Stay (Days): 8 GMLOS: 5.5 [id number]* Care Coordination - Ara Stubbs RN - 06/06/2023 10:50 AM EDT Images from the original note were not included. Care Management Progress Note Patient remains on H6 s[facility]vanz and Vancomycin, ID following, PICC placed 06/05/23. Discharge plan home with [facility] and fax[facility]. Awaiting Surgeon signature, form on the front of the chart. Awaiting ID determination on IV Abx. Will need OPAT completed. Discharge Milestones and Delays Expected Date/Time: 06/07/[address] discharge order Complete med reconciliation Case mgmt discharge readiness Clinical Stability Diagnsotic Workup Expected Discharge History Expected Date/Time Set By Reviewed At 06/07/2023 Midday CHRISTINE Rachel 06/06/2023 9:27 AM 06/07/2023 Midday Beau Comer RN 06/05/2023 7:58 AM 06/07/2023 Midday Beau Comer RN 06/01/2023 8:07 AM 06/03/2023 Midday Ara Stubbs RN 05/31/2023 8:47 AM 06/03/2023 Janessa Nava RN 05/30/2023 7:42 AM 06/03/2023 Farrukh Tim MD 05/29/2023 2:40 PM 06/03/2023 Farrukh Tim MD 05/29/2023 12:53 PM 06/05/2023 CARMELA Ramos 05/29/2023 9:05 AM Length of Stay (Days): 8 GMLOS: 5.5 [id number] Note* Addendum Note - MITCH Butcher CNP - 06/06/2023 10:21 AM EDT Addendum created 06/06/23 102 by MITCH Butcher CNP Pend clinical note, SmartForm saved [id number] NoteAddendum created 06/06/23 102 by MITCH Butcher CNP Pend clinical note, [facility] Plan of care note* Care Plan - Payton Zarate RN - 06/06/2023 8:18 AM EDT Problem: Potential for Compromised Skin Integrity Goal: Skin Integrity is Maintained or Improved Outcome: Progressing Flowsheets (Taken 06/06/2023 0817) Skin integrity is maintained or improved: Assess and monitor skin integrity Turn patient Avoid shearing [place] [id number] Note* Perioperative Nursing Note - Gely Yanez RN - 06/05/2023 4:57 PM EDT Patient's son updated by RN at this time that Pt is doing well and will be returning to H-6120 shortly. [id number] Note* Perioperative Nursing Note - Gely Yanez RN - 06/05/2023 4:57 PM EDT Patient's son updated by RN at this time that Pt is doing well and will be returning to H-6120 shortly. [facility] [id number] Hospital Discharge instructions* Discharge Instructions* Farrukh Tim MD - 06/05/2023 4:38 PM EDT Images from the original note were not included. General Orthopedic Discharge Instructions The following instructions have been prepared to help you when you leave the hospital. These guidelines are for the post-surgery period. Activity: Ease into normal activity as tolerated. Medications: see medication instructions. Please be sure to read and understand the information provided by your pharmacy. Ask your Pharmacist if any questions. Call Your Doctor for: -Excessive bleeding/swelling of [...] resume normal diet. * Discharge Instr - JENNIFER* Fly Schultz RN - 06/08/2023 1:17 PM EDT documented in this [facility]09-05-2023 [facility] 06-05-2023 Note* Op Note - Rusty Mercado MD - 06/05/2023 3:20 PM EDT Pre-operative Diagnosis: Left thigh abscess Post-operative Diagnosis: Same Procedure: #1 Incision and drainage abscess left thigh (Wound dimensions: Length medial to lateral:6 cm, Width anterior to posterior: 2 cm, Depth: 3 cm, #2 placement of VAC dressing left thigh woundless than 50 cm Components used: VAC dressing Anesthesia: general Surgeon: Jess Assistants: Adolfo Tim Estimated Blood Loss: 50ml Complications: None Specimens: None Medications: Siobhan was on preoperative antibiotics and no antibiotics were given in the operatingroom. Operative findings: The left thigh/AKA wound bed appeared free of infection. Good granulation tissue was present throughout the entirety of the wound. No communication with the underlying femur was found and the muscle layer was intact. Due to the nature of the wound it did not appear to be amendable to closure and therefore a VAC dressing was placed with the plan to continue VAC dressing changesat home until the wound is healed by secondary intent. History of present illness: Siobhan is a 62 y.o. female with a history significant for previous left above-knee amputation with wound complications. She presented to the office with ongoing drainage from her most recent incision site. Despite the risks of surgery Siobhan consented to proceed. Operative report: I met with [...] of pain or dysfunction, wound healing complications, and late or chronic pain as a result of the surgical intervention. In addition potentially life threatening complications that can occur at the time of surgery and after surgery were discussed including but not limited to deep vein thrombosis, pulmonary embolism, myocardial infarction, stroke and . I initialed her Left lower extremity and signed her consent form. Siobhan was then brought to the operating room and placed in the supine position on the Operating Room table. Care was taken to identify and pad all bony prominences. A general anesthetic was then given by the anesthesia staff and an endotracheal tube was placed by the anesthesia staff. At all times during the operative procedure the patient's head neck and airwaywere protected by the anesthesia staff. A tourniquet was not utilized for the case. The Left lower extremity was then prepped and draped in the usual orthopedic sterile fashion. A surgical timeout was then performed with the patient's identification, the procedure to be performed being reviewed with the consent form, verification that the patient had received preoperative antibiotics, and verification of the correct surgical side. Everyone in the operating room stopped what they were doing in order to participate in the timeout. This timeout was performed by myself, the circulating room nurse and the anesthesia staff. The patient's ASA was verified by the nurse machine printer and the anesthesia staff. Fire risk was assessed. The VAC dressing had been removed from the open wound site prior to prepping and draping. Incision and drainage of the open wound was performed using a combination of curettes and a rongeur. No signsof active infection were found. A combination of sharp excision utilizing a scalpel, rongeurs and curets were used to excise any nonviable appearing skin and subcutaneous tissue. The deeper fascia overlying the muscle layer was intact. No communication with the underlying femur was found. Once an adequate debridement had been performed and I was comfortable that no additional debridement was necessary the wound was thoroughly irrigated with copious amounts of sterile saline. At this point it was decided to place a VAC dressing within the wound. Black VAC sponge was utilized. The skin surrounding the wound was cleaned and dried and then [place] sponges were used to further prepare the skin and then the skin was covered with plastic dressing.. The piece of sponge that had been cut for the wound was placed within the wound. Plastic dressing was then used to cover the sponge/wound. A [place] of plastic drape the size of a quarter was cut out exposing the underlying sponge material for tract pad placement. A tract pad was then placed over the exposed sponge and the tubing from the tract pad was attached to the VAC machine. The machine was started and a good seal withno leaks was present. Siobhan was then awakened from her anesthetic, transferred to her hospital bed and taken to the recovery room in stable medical condition. Post-operative plan: Additional Surgical Intervention: No further operative intervention needed Weight Bearing Instructions: Siobhan will be nonweight bearing on the left lower extremity. DVT Prophylaxis: Can start/restart chemoprophylaxis from my standpoint Antibiotics: Antibiotic managment per Infectious Disease Elevation: Elevation of the operative extremity is not needed but can be performed if patient is uncomfortable Dressings: Siobhan will need a homegoing VAC for group home wound treatment (NOT A VAC VIA OR OTHER SHORT TERM VAC) . Can start every 48 hours wound VAC changes with plan to continue VAC dressing as an outpatientuntil wound is healed. 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, initial encounter ([facility]) [S78.112A] Procedures DEBRIDEMENT SKIN, SUBCUTANEOUS TISSUE/MUSCLE/BONE 19174 - MO DEBRIDEMENT BONE MUSCLE &/FASCIA 20 SQ CM/< Surgeons * Rusty Mercado - Primary Procedure Summary Anesthesia: General ASA: IV Estimated Blood Loss: 10 mL Drains: Female External Urinary Catheter (Active) Wall Suction (mmHg) 50 06/04/231944 External Catheter Status In place 06/04/231944 Output (mL) 800 mL 06/05/23 0450 Staff: Fleet Technician: John Neil RN; Noreen Khan RN Physician Clothes Drier Assembler: CARMELA Ramos Scrub Person: Susy Wells RN Findings: Clean wound bed Complications: None; patient tolerated the procedure well. Specimens Collected: No specimens collected during this procedure. Wound Class: Class I: Clean Blood Products: None Prophylactic Antibiotics: Pre-operative antibiotics were not given because the patient is on continuous antibiotics for documented preoperative infection. Post op Plan: -No plan for return to the OR, will definitive VAC therapy to close wound -Sunday VAC changes per wound care, will start VAC changes on Sunday -Will need home-going VAC therapy set up prior to discharge -Received PICC today, antibiotics per infectious disease -APS consult -Nonweightbearing left lower extremity -Ortho primary, page on-call resident with questions or concerns [facility] [id number] Note* Op Note - Rusty Mercado MD - 06/05/2023 3:20 PM EDT Pre-operative Diagnosis: Left thigh abscess Post-operative Diagnosis: Same Procedure: #1 Incision and drainage abscess left thigh (Wound dimensions: Length medial to lateral:6 cm, Width anterior to posterior: 2 cm, Depth: 3 cm, #2 placement of VAC dressing left thigh woundless than 50 cm Components used: VAC dressing Anesthesia: general Surgeon: Jess Assistants: dAolfo Tim Estimated Blood Loss: 50ml Complications: None Specimens: None Medications: Siobhan was on preoperative antibiotics and no antibiotics were given in the operatingroom. Operative findings: The left thigh/AKA wound bed appeared free of infection. Good granulation tissue was present throughout the entirety of the wound. No communication with the underlying femur was found and the muscle layer was intact. Due to the nature of the wound it did not appear to be amendable to closure and therefore a VAC dressing was placed with the plan to continue VAC dressing changesat home until the wound is healed by secondary intent. History of present illness: Siobhan is a 62 y.o. female with a history significant for previous left above-knee amputation with wound complications. She presented to the office with ongoing drainage from her most recent incision site. Despite the risks of surgery Siobhan consented to proceed. Operative report: I met with [...] of pain or dysfunction, wound healing complications, and late or chronic pain as a result of the surgical intervention. In addition potentially life threatening complications that can occur at the time of surgery and after surgery were discussed including but not limited to deep vein thrombosis, pulmonary embolism, myocardial infarction, stroke and . I initialed her Left lower extremity and signed her consent form. Siobhan was then brought to the operating room and placed in the supine position on the Operating Room table. Care was taken to identify and pad all bony prominences. A general anesthetic was then given by the anesthesia staff and an endotracheal tube was placed by the anesthesia staff. At all times during the operative procedure the patient's head neck and airwaywere protected by the anesthesia staff. A tourniquet was not utilized for the case. The Left lower extremity was then prepped and draped in the usual orthopedic sterile fashion. A surgical timeout was then performed with the patient's identification, the procedure to be performed being reviewed with the consent form, verification that the patient had received preoperative antibiotics, and verification of the correct surgical side. Everyone in the operating room stopped what they were doing in order to participate in the timeout. This timeout was performed by myself, the circulating room nurse and the anesthesia staff. The patient's ASA was verified by the nurse machine printer and the anesthesia staff. Fire risk was assessed. The VAC dressing had been removed from the open wound site prior to prepping and draping. Incision and drainage of the open wound was performed using a combination of curettes and a rongeur. No signsof active infection were found. A combination of sharp excision utilizing a scalpel, rongeurs and curets were used to excise any nonviable appearing skin and subcutaneous tissue. The deeper fascia overlying the muscle layer was intact. No communication with the underlying femur was found. Once an adequate debridement had been performed and I was comfortable that no additional debridement was necessary the wound was thoroughly irrigated with copious amounts of sterile saline. At this point it was decided to place a VAC dressing within the wound. Black VAC sponge was utilized. The skin surrounding the wound was cleaned and dried and then [place] sponges were used to further prepare the skin and then the skin was covered with plastic dressing.. The piece of sponge that had been cut for the wound was placed within the wound. Plastic dressing was then used to cover the sponge/wound. A [place] of plastic drape the size of a quarter was cut out exposing the underlying sponge material for tract pad placement. A tract pad was then placed over the exposed sponge and the tubing from the tract pad was attached to the VAC machine. The machine was started and a good seal withno leaks was present. Siobhan was then awakened from her anesthetic, transferred to her hospital bed and taken to the recovery room in stable medical condition. Post-operative plan: Additional Surgical Intervention: No further operative intervention needed Weight Bearing Instructions: Siobhan will be nonweight bearing on the left lower extremity. DVT Prophylaxis: Can start/restart chemoprophylaxis from my standpoint Antibiotics: Antibiotic managment per Infectious Disease Elevation: Elevation of the operative extremity is not needed but can be performed if patient is uncomfortable Dressings: Siobhan will need a homegoing VAC for group home wound treatment (NOT A VAC VIA OR OTHER SHORT TERM VAC) . Can start every 48 hours wound VAC changes with plan to continue VAC dressing as an outpatientuntil wound is healed. Follow-up: follow-up as an outpatient in 2 weeks please call [phone] to make an appointment Any questions please page Ortho pager (resident manager acquisition) or call my office at [phone] [facility]09-05-2023 Note* Brief Op Note - Farrukh Tim MD - 06/05/2023 3:20 PM EDT Date: 06/05/2023 Location: [facility] OR Name: Siobhan Haas, : 1960, Diagnosis Pre-op Diagnosis * 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, initial encounter ([facility]) [S78.112A] Post-op Diagnosis * 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, initial encounter ([facility]) [S78.112A] Procedures DEBRIDEMENT SKIN, SUBCUTANEOUS TISSUE/MUSCLE/BONE 17638 - MO DEBRIDEMENT BONE MUSCLE &/FASCIA 20 SQ CM/< Surgeons * Rusty Mercado - Primary Procedure Summary Anesthesia: General ASA: IV Estimated Blood Loss: 10 mL Drains: Female External Urinary Catheter (Active) Wall Suction (mmHg) 50 06/04/231944 External Catheter Status In place 06/04/231944 Output (mL) 800 mL 06/05/23 0450 Staff: Fleet Technician: John Neil RN; Noreen Khan RN Physician Clothes Drier Assembler: CARMELA Ramos Scrub Person: Susy Wells RN Findings: Clean wound bed Complications: None; patient tolerated the procedure well. Specimens Collected: No specimens collected during this procedure. Wound Class: Class I: Clean Blood Products: None Prophylactic Antibiotics: Pre-operative antibiotics were not given because the patient is on continuous antibiotics for documented preoperative infection. Post op Plan: -No plan for return to the OR, will definitive VAC therapy to close wound -Sunday VAC changes per wound care, will start VAC changes on Sunday -Will need home-going VAC therapy set up prior to discharge -Received PICC today, antibiotics per infectious disease -APS consult -Nonweightbearing left lower extremity -Ortho primary, page on-call resident with questions or concerns [facility] [id number] Note* Care Coordination - Beau Comer RN - 06/05/2023 12:47 PM EDT Plan for RTOR 06/05. TCC to follow. [facility] [id number] Note* Care Coordination - Beau Comer RN - 06/05/2023 12:47 PM EDT Plan for RTOR 06/05. TCC to follow. [facility] [id number] [facility]09-05-2023 Procedure note* Irene Aldridge MD - 06/05/2023 10:51 AM EDTAssociated Order(s): PICC Insertion/Replacement Post-Procedure Diagnose(s): Lack of intravenous access PICC Insertion/Replacement Date/Time: 06/05/2023 10:51 AM Performed by: Shoaib Rolon APRN - ADE[place] Authorized by: Irene Aldridge MD Consent: The indications, risks, benefits, alternatives to the procedure were explained to the patient/surrogate decision maker and their questions answered. Consent was obtained to proceed with the procedure. Timeout: Completed immediately prior to the start of the procedure which included verification of the correct patient, correct site and agreement on the procedure to be done. Indications: Indications: Lack of adequate PIV access Anesthetic: Local anesthetic used: lidocaine without epinephrine Procedure details: Preparation: Skin prepped with chlorhexidine Skin prep agent dried: Skin prep agent completely dried prior to procedure Sterile barriers: All five maximal sterile barriers used - gloves, gown, cap, mask and large sterile sheet Hand hygiene: Hand hygiene performed prior to central venous catheter insertion Sterile technique: Sterile technique maintained throughout procedure. Site prior to insertion: Ecchymosis Procedure type: Insertion Location: Right basilic Catheter type: Double lumen Catheter size: 5 Fr Lot #: [id number] Trimmed at (cm): 51 Inserted at (cm): 51 Ultrasound guidance: Yes Post-procedure: Post-procedure: Antimicrobial dressing applied and securement device Description/Findings: Flushes easily and blood returned Estimated blood loss: None Specify complication(s): No apparent complications Follow-up chest x-ray: Ordered [facility] [id number] Procedure note* Irene Aldridge MD - 06/05/2023 10:51 AM EDTAssociated Order(s): PICC Insertion/Replacement Post-Procedure Diagnose(s): Lack of intravenous access PICC Insertion/Replacement Date/Time: 06/05/2023 10:51 AM Performed by: Shoaib Rolon APRN - [place] Authorized by: Irene Aldridge MD Consent: The indications, risks, benefits, alternatives to the procedure were explained to the patient/surrogate decision maker and their questions answered. Consent was obtained to proceed with the procedure. Timeout: Completed immediately prior to the start of the procedure which included verification of the correct patient, correct site and agreement on the procedure to be done. Indications: Indications: Lack of adequate PIV access Anesthetic: Local anesthetic used: lidocaine without epinephrine Procedure details: Preparation: Skin prepped with chlorhexidine Skin prep agent dried: Skin prep agent completely dried prior to procedure Sterile barriers: All five maximal sterile barriers used - gloves, gown, cap, mask and large sterile sheet Hand hygiene: Hand hygiene performed prior to central venous catheter insertion Sterile technique: Sterile technique maintained throughout procedure. Site prior to insertion: Ecchymosis Procedure type: Insertion Location: Right basilic Catheter type: Double lumen Catheter size: 5 Fr Lot #: [id number] Trimmed at (cm): 51 Inserted at (cm): 51 Ultrasound guidance: Yes Post-procedure: Post-procedure: Antimicrobial dressing applied and securement device Description/Findings: Flushes easily and blood returned Estimated blood loss: None Specify complication(s): No apparent complications Follow-up chest x-ray: Ordered documented in this [facility]09-04-2023 Nurse Note* Joanne Salazar RN - 06/04/2023 6:36 AM EDT Contacted manager acquisition d/t to second line line on pr blowing, asked for a piss line order, updated MDwith the following message, pt currently has an order for Vancomycin IV, she has had 2 lines with infiltration in the last 24 hrs, pt is a very hard stick we have rapid trying for line again now, can we get a picc line consult for pt, her arms are all bruised up and painful to touch. Rapid was abl e to get a line to run ATB vanco in, 22G L lower right arm. stated she can have Picc order for place. [facility] [id number] Note* Care Coordination - Beau Comer RN - 06/01/2023 1:56 PM EDT Images from the original note were not included. Care Management Progress Note Patient remains on H6 s/p L AKA I&D with wound vac application on 05/29 with repeat I&D on 05/31. OR today for repeat I&D today, IV ertapenem, ID following, awaiting culture results. Anticipate PT/OT evals s/p I&D scheduled for 06/05 At this time patient prefers to go home and does not want SNF/Rehab placement. TCC to follow. Discharge Milestones and Delays Expected Date/Time: 06/07/[address] discharge order Complete med reconciliation Case mgmt discharge readiness Clinical Stability Diagnsotic Workup Expected Discharge History Expected Date/Time Set By Reviewed At 06/07/2023 Midday Beau Comer RN 06/01/2023 8:07 AM 06/03/2023 Midday Ara Stubbs RN 05/31/2023 8:47 AM 06/03/2023 Janessa Nava RN 05/30/2023 7:42 AM 06/03/2023 Farrukh Tim MD 05/29/2023 2:40 PM 06/03/2023 Farrukh Tim MD 05/29/2023 12:53 PM 06/05/2023 CARMELA Ramos 05/29/2023 9:05 AM Length of Stay (Days): 3 GMLOS: 5.5 [id number]* Care Coordination - Beau Comer RN - 06/01/2023 1:56 PM EDT Images from the original note were not included. Care Management Progress Note Patient remains on H6 s/p L AKA I&D with wound vac application on 05/29 with repeat I&D on 05/31. OR today for repeat I&D today, IV ertapenem, ID following, awaiting culture results. Anticipate PT/OT evals s/p I&D scheduled for 06/05 At this time patient prefers to go home and does not want SNF/Rehab placement. TCC to follow. Discharge Milestones and Delays Expected Date/Time: 06/07/[address] discharge order Complete med reconciliation Case mgmt discharge readiness Clinical Stability Diagnsotic Workup Expected Discharge History Expected Date/Time Set By Reviewed At 06/07/2023 Midday Beau Comer RN 06/01/2023 8:07 AM 06/03/2023 Midday Ara Stubbs RN 05/31/2023 8:47 AM 06/03/2023 Janessa Nava RN 05/30/2023 7:42 AM 06/03/2023 Farrukh Tim MD 05/29/2023 2:40 PM 06/03/2023 Farrukh Tim MD 05/29/2023 12:53 PM 06/05/2023 CARMELA Ramos 05/29/2023 9:05 AM Length of Stay (Days): 3 GMLOS: 5.5 [id number] Note* Addendum Note - MITCH Kaplan CNP - 06/01/2023 8:26 AM EDT Addendum created 06/01/23825 by MITCH Kaplan CNP Pend clinical note, SmartForm saved [facility]Vwfdlp10-00-4500 Note* Addendum Note - MITCH Kaplan CNP - 06/01/2023 8:26 AM EDT Addendum created 06/01/23825 by MITCH Kaplan CNP Pend clinical note, SmartForm saved [id number] Note* Addendum Note - MITCH Kaplan CNP - 06/01/2023 8:26 AM EDT Addendum created 06/01/23825 by MITCH Kaplan CNP Pend clinical note, SmartForm saved [facility] HospitalDmblrm71-45-9459 NoteAddendum created 06/01/23825 by MITCH Kaplan CNP Pend clinical note, [facility] Miscellaneous Notes* Addendum Note - MITCH Kaplan CNP - 06/01/2023 8:26 AM EDT Addendum created 06/01/23825 by MITCH Kaplan CNP Pend clinical note, SmartForm saved * Addendum Note - MITCH Kaplan CNP - 06/01/2023 8:17 AM EDT Addendum created 06/01/23816 by MITCH Kaplan CNP Pend clinical note documented in this [facility]09-01-2023 Note* Addendum Note - MITCH Kaplan CNP - 06/01/2023 8:17 AM EDT Addendum created 06/01/23816 by MITCH Kaplan CNP Pend clinical note [id number] Note* Addendum Note - MITCH Kaplan CNP - 06/01/2023 8:17 AM EDT Addendum created 06/01/23816 by MITCH Kaplan CNP Pend clinical note [id number] Note* Addendum Note - MITCH Kaplan CNP - 06/01/2023 8:17 AM EDT Addendum created 06/01/23816 by MITCH Kaplan CNP Pend clinical note [facility] HospitalAnuidz17-16-7404 NoteAddendum created 06/01/23816 by MITCH Kaplan CNP Pend [facility] noteSC[facility]* Home Care - Micki Garcia RN - 05/31/2023 3:52 PM EDT Digital Sales Director following case for Discharge Needs. Checking benefits for possible home IV infusion. Spoke to patient regarding home care needs. PT agreeable if can find an agency to accept referral. Pt agreeable to send multiple referrals in Care port to see what agencies can accept, then pt will review for choice. Pt would like [employer] for bathing when h/c is ordered. Pt was asking about obtaining a new motorized wheelchair. [facility] is unable to obtain this piece of equipment and gave name of company and number to follow up with for questions. [employer] [phone] and fax [phone]. Spoke to Melody at [employer]. Per Melody, to possibly qualify, has pt had chair greater than 5 years? Pt states she has NOT had it that long. Also company needs documentation from physicians - medical necessity form, medical documentation proving need for motorized chair, referral and PT evaluation for chair or the company's ATP (wellfield technician) to do evaluation/measurements for chair. Spoke with [employer] manager environmental services, Vinh, per manager environmental services, this will need handled by pt's PCP as they are responsible for starting this process. PCP would handle the reason for need and working with the DME provider. Followed up with pt and informed. Gave pt name and number of company, so she would have for her records for when she has met the 5 years requirement per insurance. [employer] [id number] Note* Home Care - Micki Garcia RN - 05/31/2023 3:52 PM EDT Digital Sales Director following case for Discharge Needs. Checking benefits for possible home IV infusion. Spoke to patient regarding home care needs. PT agreeable if can find an agency to accept referral. Pt agreeable to send multiple referrals in Care port to see what agencies can accept, then pt will review for choice. Pt would like [employer] for bathing when h/c is ordered. Pt was asking about obtaining a new motorized wheelchair. [facility] is unable to obtain this piece of equipment and gave name of company and number to follow up with for questions. [employer] [phone] and fax [phone]. Spoke to Melody at [employer]. Per Melody, to possibly qualify, has pt had chair greater than 5 years? Pt states she has NOT had it that long. Also company needs documentation from physicians - medical necessity form, medical documentation proving need for motorized chair, referral and PT evaluation for chair or the company's ATP (wellfield technician) to do evaluation/measurements for chair. Spoke with [employer] manager environmental services, len Seo manager environmental services, this will need handled by pt's PCP as they are responsible for starting this process. PCP would handle the reason for need and working with the DME provider. Followed up with pt and informed. Gave pt name and number of company, so she would have for her records for when she has met the 5 years requirement per insurance. General [id number] Note* Perioperative Nursing Note - Isabela Dhaliwal RN - 05/31/2023 2:49 PM EDT Report called to Holly RN on h6 no questions asked. [id number] Note* Perioperative Nursing Note - Isabela Dhaliwal RN - 05/31/2023 2:49 PM EDT Report called to Holly RN on h6 no questions asked. [address]Ifsfov33-07-2462 Note* Perioperative Nursing Note - Isabela Dhaliwal RN - 05/31/2023 2:47 PM EDT Patient family/visitor updated by RN at this time via phone call [address] StreetFjhklg85-45-1108 Note* Perioperative Nursing Note - Isabela Dhaliwal RN - 05/31/2023 2:47 PM EDT Patient family/visitor updated by RN at this time via phone call [id number] [facility]08-31-2023 NotePeripheral IV Date/Time: 05/31/2023 1:18 PM Inserted by: Renato Snyder APRN - MILDRED Placement Needle size: 20 G Laterality: left Location: forearm Local anesthetic: injectable Site prep: alcohol Technique: ultrasound guided Attempts: [address] [place] [address]-31-2023 Note* Op Note - Rusty Mercado MD - 05/31/2023 1:04 PM EDT Pre-operative Diagnosis: Left thigh abscess Post-operative Diagnosis: Same Procedure: #1 Incision and drainage abscess left thigh (Wound dimensions: Length medial to lateral:6 cm, Width anterior to posterior: 2 cm, Depth: 3 cm, #2 placement of VAC dressing left thigh woundless than 50 cm Components used: None Anesthesia: general Surgeon: Jess Assistants: Adolfo Tim Estimated Blood Loss: 50ml Complications: None Specimens: A culture was taken from the base of the wound Medications: Siobhan was on preoperative antibiotics and no antibiotics were given in the operatingroom. Operative findings: Serous type fluid was present within the wound site at the distal end of the above-knee amputation site. No communication with the femur was found. The muscle layer overlying the femur was intact. After incision and drainage a VAC vera flow was placed. Plan is to return to the operating room on 05/31/2023 for repeat I&D. History of present illness: Siobhan is a 62 y.o. female with a history significant for previous left above-knee amputation with wound complications. She presented to the office with ongoing drainage from her most recent incision site. Despite the risks of surgery Siobhan consented to proceed. Operative report: I met with [...] of pain or dysfunction, wound healing complications, and late or chronic pain as a result of the surgical intervention. In addition potentially life threatening complications that can occur at the time of surgery and after surgery were discussed including but not limited to deep vein thrombosis, pulmonary embolism, myocardial infarction, stroke and . I initialed her Left lower extremity and signed her consent form. Siobhan was then brought to the operating room and placed in the supine position on the Operating Room table. Care was taken to identify and pad all bony prominences. A general anesthetic was then given by the anesthesia staff and an endotracheal tube was placed by the anesthesia staff. At all times during the operative procedure the patient's head neck and airwaywere protected by the anesthesia staff. A tourniquet was not utilized for the case. The Left lower extremity was then prepped and draped in the usual orthopedic sterile fashion. A surgical timeout was then performed with the patient's identification, the procedure to be performed being reviewed with the consent form, verification that the patient had received preoperative antibiotics, and verification of the correct surgical side. Everyone in the operating room stopped what they were doing in order to participate in the timeout. This timeout was performed by myself, the circulating room nurse and the anesthesia staff. The patient's ASA was verified by the nurse machine printer and the anesthesia staff. Fire risk was assessed. The VAC dressing had been removed from the open wound site prior to prepping and draping. Incision and drainage of the open wound was performed using a combination of curettes and a rongeur. No signsof active infection were found. A combination of sharp excision utilizing a scalpel, rongeurs and curets were used to excise any nonviable appearing skin and subcutaneous tissue. The deeper fascia overlying the muscle layer was intact. No communication with the underlying femur was found. Once an adequate debridement had been performed and I was comfortable that no additional debridement was necessary the wound was thoroughly irrigated with copious amounts of sterile saline. At this point it was decided to place a VAC VeraFlow dressing within the wound. Hill VeraFLow sponge was utilized. The skin surrounding the wound was cleaned and dried and then [place] sponges were used to further prepare the skin and then the skin was covered with plastic dressing.. The piece of sponge that had been cut for the wound was placed within the wound. Plastic dressing was then used tocover the sponge/wound. A [place] of plastic drape the size of a quarter was cut out exposing the underlying sponge material for tract pad placement. A tract pad was then placed over the exposed sponge and the tubing from the tract pad was attached to the VAC machine. The machine was started and a good seal with no leaks was present. The VeraFlow influx of fluid was then started and 35 cc of fluidfilled the wound. The VAC machine was then set for 35 cc fluid soak for 10 minutes every 3 hours. No leakage was present. Siobhan was then awakened from her anesthetic, transferred to her hospital bed and taken to the recovery room in stable medical condition. Post-operative plan: Additional Surgical Intervention: Plan to return to OR on 06/05 Weight Bearing Instructions: Siobhan will be nonweight bearing on the left lower extremity. DVT Prophylaxis: Can start/restart chemoprophylaxis from my standpoint Antibiotics: Antibiotic managment per Infectious Disease Consults: Consult Infectious Disease for antibiotic management Dressings: Leave VAC in place (DO NOT CHANGE) will change in OR Any questions please page Ortho pager (resident manager acquisition) or call my office at [phone] [facility]08-31-2023 Note* Op Note - Rusty Mercado MD - 05/31/2023 1:04 PM EDT Pre-operative Diagnosis: Left thigh abscess Post-operative Diagnosis: Same Procedure: #1 Incision and drainage abscess left thigh (Wound dimensions: Length medial to lateral:6 cm, Width anterior to posterior: 2 cm, Depth: 3 cm, #2 placement of VAC dressing left thigh woundless than 50 cm Components used: None Anesthesia: general Surgeon: Jess Assistants: Adolfo Tim Estimated Blood Loss: 50ml Complications: None Specimens: A culture was taken from the base of the wound Medications: Siobhan was on preoperative antibiotics and no antibiotics were given in the operatingroom. Operative findings: Serous type fluid was present within the wound site at the distal end of the above-knee amputation site. No communication with the femur was found. The muscle layer overlying the femur was intact. After incision and drainage a VAC vera flow was placed. Plan is to return to the operating room on 05/31/2023 for repeat I&D. History of present illness: Siobhan is a 62 y.o. female with a history significant for previous left above-knee amputation with wound complications. She presented to the office with ongoing drainage from her most recent incision site. Despite the risks of surgery Siobhan consented to proceed. Operative report: I met with [...] of pain or dysfunction, wound healing complications, and late or chronic pain as a result of the surgical intervention. In addition potentially life threatening complications that can occur at the time of surgery and after surgery were discussed including but not limited to deep vein thrombosis, pulmonary embolism, myocardial infarction, stroke and . I initialed her Left lower extremity and signed her consent form. Siobhan was then brought to the operating room and placed in the supine position on the Operating Room table. Care was taken to identify and pad all bony prominences. A general anesthetic was then given by the anesthesia staff and an endotracheal tube was placed by the anesthesia staff. At all times during the operative procedure the patient's head neck and airwaywere protected by the anesthesia staff. A tourniquet was not utilized for the case. The Left lower extremity was then prepped and draped in the usual orthopedic sterile fashion. A surgical timeout was then performed with the patient's identification, the procedure to be performed being reviewed with the consent form, verification that the patient had received preoperative antibiotics, and verification of the correct surgical side. Everyone in the operating room stopped what they were doing in order to participate in the timeout. This timeout was performed by myself, the circulating room nurse and the anesthesia staff. The patient's ASA was verified by the nurse machine printer and the anesthesia staff. Fire risk was assessed. The VAC dressing had been removed from the open wound site prior to prepping and draping. Incision and drainage of the open wound was performed using a combination of curettes and a rongeur. No signsof active infection were found. A combination of sharp excision utilizing a scalpel, rongeurs and curets were used to excise any nonviable appearing skin and subcutaneous tissue. The deeper fascia overlying the muscle layer was intact. No communication with the underlying femur was found. Once an adequate debridement had been performed and I was comfortable that no additional debridement was necessary the wound was thoroughly irrigated with copious amounts of sterile saline. At this point it was decided to place a VAC VeraFlow dressing within the wound. Hill VeraFLow sponge was utilized. The skin surrounding the wound was cleaned and dried and then [place] sponges were used to further prepare the skin and then the skin was covered with plastic dressing.. The piece of sponge that had been cut for the wound was placed within the wound. Plastic dressing was then used tocover the sponge/wound. A [place] of plastic drape the size of a quarter was cut out exposing the underlying sponge material for tract pad placement. A tract pad was then placed over the exposed sponge and the tubing from the tract pad was attached to the VAC machine. The machine was started and a good seal with no leaks was present. The VeraFlow influx of fluid was then started and 35 cc of fluidfilled the wound. The VAC machine was then set for 35 cc fluid soak for 10 minutes every 3 hours. No leakage was present. Siobhan was then awakened from her anesthetic, transferred to her hospital bed and taken to the recovery room in stable medical condition. Post-operative plan: Additional Surgical Intervention: Plan to return to OR on 06/05 Weight Bearing Instructions: Siobhan will be nonweight bearing on the left lower extremity. DVT Prophylaxis: Can start/restart chemoprophylaxis from my standpoint Antibiotics: Antibiotic managment per Infectious Disease Consults: Consult Infectious Disease for antibiotic management Dressings: Leave VAC in place (DO NOT CHANGE) will change in OR Any questions please page Ortho pager (resident manager acquisition) or call my office at [phone] [facility] [id number] Note* Care Coordination - Ara Stubbs RN - 05/31/2023 11:16 AM EDT Images from the original note were not included. Care Management Progress Note Patient remains on H6 s/p L AKA I&D with wound vac application on 05/29 with plan for repeat I&D on 05/31. OR today for repeat I&D today, IV ertapenem, ID following, awaiting culture results. Anticipate PT/OT evals s/p second I&D to assist with dc planning. At this time patient prefers to go home and does not want SNF/Rehab placement. Referral placed to Home Care. Will await therapy evaluations and IV Abx decision. TCC will continue to follow for discharge needs. Discharge Milestones and Delays Expected Date/Time: 06/03/[address] discharge order Complete med reconciliation Case mgmt discharge readiness Clinical Stability Diagnsotic Workup Expected Discharge History Expected Date/Time Set By Reviewed At 06/03/2023 Midday Ara Stubbs RN 05/31/2023 8:47 AM 06/03/2023 Janessa Nava RN 05/30/2023 7:42 AM 06/03/2023 Farrukh Tim MD 05/29/2023 2:40 PM 06/03/2023 Farrukh Tim MD 05/29/2023 12:53 PM 06/05/2023 CARMELA Ramos 05/29/2023 9:05 AM Length of Stay (Days): 2 GMLOS: No GMLOS Documented [id number] Note* Care Coordination - Ara Stubbs RN - 05/31/2023 11:16 AM EDT Images from the original note were not included. Care Management Progress Note Patient remains on H6 s/p L AKA I&D with wound vac application on 05/29 with plan for repeat I&D on 05/31. OR today for repeat I&D today, IV ertapenem, ID following, awaiting culture results. Anticipate PT/OT evals s/p second I&D to assist with dc planning. At this time patient prefers to go home and does not want SNF/Rehab placement. Referral placed to Home Care. Will await therapy evaluations and IV Abx decision. TCC will continue to follow for discharge needs. Discharge Milestones and Delays Expected Date/Time: 06/03/[address] discharge order Complete med reconciliation Case mgmt discharge readiness Clinical Stability Diagnsotic Workup Expected Discharge History Expected Date/Time Set By Reviewed At 06/03/2023 Midday Ara Stubbs RN 05/31/2023 8:47 AM 06/03/2023 Janessa Nava RN 05/30/2023 7:42 AM 06/03/2023 Farrukh Tim MD 05/29/2023 2:40 PM 06/03/2023 Farrukh Tim MD 05/29/2023 12:53 PM 06/05/2023 CARMELA Ramos 05/29/2023 9:05 AM Length of Stay (Days): 2 GMLOS: No GMLOS Documented [id number] Consult note* Cristian Maxwell, DO - 05/30/2023 9:54 PM EDTAssociated Order(s): IP CONSULT TO INFECTIOUS DISEASES Images from the original note were not included. [facility] - Infectious Diseases Attending Consult Note Reason for Consult: SSTI of LLE AKA site d/t MSSA, [place] History of Present Illness: Ms. Haas is a 62 y/o F w/ PMH of LLE NF s/p debridement and L AKA, R BKA, COPD/asthma on home O2, prior b/l PE 08/2022 (AC on apixaban), FAY on BIPAP, GERD, HTN, OA, depression, fibromyalgia. She presented to [facility] to the orthopedics service 05/28; she was seen 1w postop by ortho following I&Dof L thigh hematoma. CXs obtained at the time were (+) for Finegoldia magna, MSSA. She was taken for I&D of abscess; CXs (+) for GPC. Previously seen by the ID service for LLE OM. The ID service is consulted for LLE AKA SSTI d/t MSSA, Fine[place]ia magna. During my assessment, patient reports thatshe is feeling well overall. She reports mild pain in the area of the L AKA stump. Wound VAC is in place; no visible drainage is present. She denies f/c, n/v/d, SOB, cough, or abdominal pain. No further complaints at this time. Medical history: LLE NF s/p debridement and L AKA, R BKA, COPD/asthma on home O2, prior b/l PE 08/2022 (AC on apixaban), FAY on BIPAP, GERD, HTN, OA, depression, fibromyalgia Surgical history: L TKA 2012, tonsillectomy, wisdom tooth extraction, lipoma resection, hysterectomy, LLE I&D, belt abdominoplasty, incontinence surgery, R BKA, L AKA 10/31 Family history: Pancreatic CA in mother and father Social history: Former smoker; quit 1981; denies ETOH or illicit drug use Allergies: amlodipine, clonazepam, ketamine, lisinopril, vancomycin Code status: FULL 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 ([facility]) 07/27/2020 Asthma Cellulitis Constipation Depression Difficult intubation 12/04/2022 Fibromyalgia GERD (gastroesophageal reflux disease) History of transfusion Hx of right BKA (CMS/HCC) ([facility]) Hypertension Morbidly obese ([facility]) 02/03/2019 BMI 50.52 On home O2 FAY treated with BiPAP Osteoarthritis Osteomyelitis of right foot ([facility]) SCHEDULED FOR THE SURGERY ON 02/11/2019 Pulmonary embolism ([facility]) Seasonal allergies Shortness of breath URSULA (stress urinary incontinence, female) Vertigo Past Surgical History: Past Surgical History: Procedure Laterality Date ABCESS DRAINAGE Right 08/07/2020 I&D of right BKA hematoma AMPUTATION Left 12/2022 ANKLE SURGERY Left 12/19/2021 ankle I and D with placement of wound vac - dr alyssa PARKS ABDOMINOPLASTY BREAST SURGERY 2006 and abdomin removal for excess COLONOSCOPY COLONOSCOPY EXTREMITY SURGERY Left 01/24/2022 debridement necrotizing fasciitis LLE, wound vac FOOT SURGERY Right 02/11/2019 FOOT SURGERY Right 2019 IN [place] FOOT SURGERY Right 04/08/2019 I&D right foot with antibiotic spacer FOOT SURGERY Right 04/24/2019 I&D;, external fixator FOOT SURGERY Left 08/04/2021 peroneus longus tenolysis - Dr Gamino HYSTERECTOMY 1997 INCISION AND DRAINAGE OF WOUND Left 11/21/2022 LLE INCONTINENCE SURGERY 11/15/2015 synthetic mid urethral sling,cystoscopy JOINT REPLACEMENT Left TKR LIPOMA RESECTION Right 2014 shoulder ORTHOPEDIC SURGERY [...] Right 05/06/2019 Right Below Knee Amputation (CPT 22346), #2 Excisional debridement right iliac crest (wound 7 cm length, 3 cm width, 7 cm depth) TONSILLECTOMY (HISTORICAL) TOTAL KNEE ARTHROPLASTY Left 2012 ARTHROSCOPY FIRST AND KNEE REPLACED WISDOM TOOTH EXTRACTION WOUND DEBRIDEMENT Left 10/28/2021 irrigation and debridment LLE Current Medications: Current Facility-Administered Medications Medication Dose Route Frequency Provider Last Rate Last Admin acetaminophen (Tylenol) tablet 650 mg 650 mg Oral Q4H Siobhan Esquivel APRN - DATA MINING ANALYST 650 mg at 05/30/23 1845 albuterol 108 (90 Base) MCG/ACT inhaler 2 puff 2 puff Inhalation q6h PRN Xochitl Figueroa MD 2 puff at 05/30/23 212 amitriptyline (Elavil) tablet 100 mg 100 mg Oral Nightly Deanna Moser MD 100 mg at 05/30/23 212 budesonide (Pulmicort) 0.5 MG/2ML nebulizer solution 0.25 mg 0.25 mg Nebulization BID PRN Rehana Villa MD 0.25 mg at 05/30/23 1054 citalopram (CeleXA) tablet 20 mg 20 mg Oral Daily Deanna Moser MD 20 mg at 05/30/23 0913 diphenhydrAMINE (BENADryl) injection 25 mg 25 mg IntraVENous BID PRN Xochitl Figueroa MD 25 mg at 05/30/23 1732 docusate sodium (Colace) capsule 100 mg 100 mg Oral BID Deanna Moser MD 100 mg at 05/30/23 2124 enoxaparin (Lovenox) syringe 30 mg 30 mg SubCUTAneous 2 times per day Farrukh Tim MD 30 mg at 05/30/23 1040 ertapenem (INVanz) 1,000 mg in sodium chloride 0.9 % 50 mL IVPB Mini-Bag Plus 1,000 mg IntraVENous q24h Cristian Maxwell DO Stopped at 05/30/23 1642 gabapentin (Neurontin) capsule 300 mg 300 mg Oral BID Siobhan Esquivel APRN - DATA MINING ANALYST 300 mg at 05/30/23 2124 HYDROmorphone (Dilaudid) injection 0.25 mg 0.25 mg IntraVENous q4h PRN MITCH Butcher CNP Or HYDROmorphone (Dilaudid) injection 0.5 mg 0.5 mg IntraVENous q4h PRN MICTH Butcher CNP 0.5 mg at 05/30/232122 lactated Ringer's (LR) infusion 50 mL/hr IntraVENous Continuous Farrukh Tim MD 50 mL/hr at 05/29/23 1129 Continued by Anesthesia at 05/29/23 1129 Lidocaine 4 % patch 1 patch 1 patch Topical Daily MITCH Butcher CNP LORazepam (Ativan) tablet 0.5 mg 0.5 mg Oral q8h PRN Deanna Moser MD 0.5 mg at 05/30/232123 methocarbamol (Robaxin) tablet 750 mg 750 mg Oral q8h PRN MITCH Butcher CNP 750 mg at 05/30/23 1222 mometasone-formoterol (Dulera 200) 200-5 MCG/ACT inhaler 2 puff 2 puff Inhalation BID Deanna Moser MD 2 puff at 05/30/232122 montelukast (Singulair) tablet 10 mg 10 mg Oral Daily Deanna Moser MD 10 mg at 05/30/23 0913 naloxone (Narcan) 0.4 mg in 0.9% sodium chloride 10 mL syringe IntraVENous PRN MITCH Butcher CNP ondansetron ODT (Zofran-ODT) disintegrating tablet 4 mg 4 mg Oral q8h PRN Farrukh Tim MD Or ondansetron (Zofran) injection 4 mg 4 mg IntraVENous q6h PRN Farrukh Tim MD oxyCODONE (Roxicodone) immediate release tablet 5 mg 5 mg Oral q4h PRN MITCH Butcher CNP 5 mg at 05/29/23 2201 Or oxyCODONE (Roxicodone) immediate release tablet 10 mg 10 mg Oral q4h PRN MITCH Butcher CNP 10 mg at 05/30/23 1606 pantoprazole (ProtoNix) EC tablet 40 mg 40 mg Oral qAM AC Deanna Moser MD 40 mg at 05/30/23 0533 polyethylene glycol (PEG) 3350 (Miralax) packet 17 g 17 g Oral Daily PRN Farrukh Tim MD [START ON 05/31/2023] vancomycin (Vancocin) 1250 mg in NS 250 mL IVPB (compounded premix) 1,250 mg IntraVENous q12h Cristian Maxwell DO Allergies: Allergies Allergen Reactions Amlodipine Swelling Cefepime Itching Clonazepam Other reaction(s): Other (See Comments) made me sleep & cry Ketamine Lisinopril Swelling Vancomycin Rash Social History: Social History Socioeconomic History Marital status: Spouse name: Not on file Number of children: Not on file Years of education: Not on file Highest education level: Not on file Occupational History Not on file Tobacco Use Smoking status: Former Packs/day: 0.15 Years: 5.00 Pack years: 0.75 Types: Cigarettes Quit date: 10/01/1981 Years since quittin.6 Passive exposure: Past Smokeless tobacco: Never Vaping Use Vaping Use: Never used Substance and Sexual Activity Alcohol use: Not Currently Drug use: No Sexual activity: Yes Partners: Male Other Topics Concern Not on file Social History Narrative Has been in rehab facility in [place] Lives alone, son close Friends help Social Determinants of Health Financial Resource Strain: Not on file Food Insecurity: Not on file Transportation Needs: No Transportation Needs (12/04/2022) PRAPARE - Transportation Lack of Transportation (Medical): No Lack of Transportation (Non-Medical): No Physical Activity: Not on file Stress: Not on file Social Connections: Not on file Intimate Partner Violence: Not At Risk (12/04/2022) Humiliation, Afraid, Rape, and Kick questionnaire Fear of Current or Ex-Partner: No Emotionally Abused: No Physically Abused: No Sexually Abused: No Housing Stability: Unknown (05/29/2023) Housing Stability Vital Sign Unable to Pay for Housing in the Last Year: No Number of Places Lived in the Last Year: Not on file Unstable Housing in the Last Year: No Family History: Family History Problem Relation Name Age of Onset Pancreatic cancer Mother Pancreatic cancer Father Review of Systems: Review of Systems Constitutional: Negative for appetite change, chills, diaphoresis, fatigue and fever. Respiratory: Negative for cough, shortness of breath and wheezing. Cardiovascular: Negative for palpitations and leg swelling. Gastrointestinal: Negative for abdominal distention, abdominal pain, nausea and vomiting. Musculoskeletal: Negative for arthralgias, joint swelling and myalgias. Skin: Negative for color change, pallor, rash and wound. Vitals: Patient Vitals for the past 24 hrs: BP Temp Temp src Pulse Resp SpO2 Height 05/30/23 2034 138/79 36.5 C (97.7 F) Temporal 96 16 94 % -- 05/30/23 1057 -- -- -- 92 16 93 % -- 05/30/23 0817 -- -- -- -- -- -- 5' 7.01 (1.702 m) 05/30/23 0808 131/81 36.4 C (97.6 F) Temporal 88 16 94 % -- Physical Exam: Physical Exam Constitutional: General: She is not in acute distress. Appearance: Normal appearance. She is normal weight. She is not ill-appearing, toxic-appearing or diaphoretic. HENT: Head: Normocephalic and atraumatic. Nose: Nose normal. Mouth/Throat: Mouth: Mucous membranes are moist. Pharynx: Oropharynx is clear. No oropharyngeal exudate or posterior oropharyngeal erythema. Eyes: General: No scleral icterus. Extraocular Movements: Extraocular movements intact. Pupils: Pupils are equal, round, and reactive to light. Cardiovascular: Rate and Rhythm: Normal rate and regular rhythm. Pulses: Normal pulses. Heart sounds: Normal heart sounds. No murmur heard. No friction rub. No gallop. Pulmonary: Effort: Pulmonary effort is normal. No respiratory distress. Breath sounds: Normal breath sounds. No wheezing, rhonchi or rales. Comments: Diminished breath sounds b/l Prolonged expiratory phase Abdominal: General: Abdomen is flat. Bowel sounds are normal. Palpations: Abdomen is soft. Tenderness: There is no abdominal tenderness. There is no guarding or rebound. Musculoskeletal: General: Swelling and deformity present. Normal range of motion. Cervical back: Neck supple. Comments: PEX s/p L AKA, R BKA Wound VAC in place on L AKA stump No surrounding erythema or discharge Skin: General: Skin is warm and dry. Capillary Refill: Capillary refill takes less than 2 seconds. Coloration: Skin is not pale. Findings: No erythema, lesion or rash. Neurological: General: No focal deficit present. Mental Status: She is alert. Psychiatric: Mood and Affect: Mood normal. Judgment: Judgment normal. Labs: Lab Results Component Value Date/Time NA 135 05/30/2023 0105 K 4.4 05/30/2023 0105 CL 100 05/30/2023 0105 CO2 26 05/30/2023 0105 BUN 15 05/30/2023 010 CREATININE 0.76 05/30/2023 010 CREATININE 0.70 02/14/2022 0918 GLUCOSE 220 (H) 05/30/2023 010 CALCIUM 8.8 05/30/2023 010 PROT 6.3 12/12/2022 0612 BILITOT 0.3 12/12/2022 0612 ALKPHOS 140 (H) 12/12/2022 0612 AST 24 12/12/2022 0612 ALT 18 12/12/2022 0612 PROCAL 0.04 12/04/2022 0149 PROCAL 0.02 11/11/2022 0301 PROCAL 1.77 (H) 01/25/2022 0618 Lab Results Component Value Date/Time WBC 6.9 05/30/2023 010 HGB 11.7 05/30/2023 010 HCT 36.7 05/30/2023 010 PLT 293 05/30/2023 010 GRANULOCYTES 66.9 02/14/2022 0918 LYMPHOPCT 10.4 (L) 05/30/2023 010 MONOPCT 3.2 05/30/2023 010 LABEOS 3.5 02/14/2022 0918 BASOPCT 0.3 05/30/2023 010 NEUTROABS 6.0 05/30/2023 0105 Micro: 05/22 LLE fluid CXs (+) for Finegoldia magna, MSSA 05/29 L thigh fluid CXs (+) for GPCs Lines/Drains/Airways: 05/29 RUE PIV Radiography/Echo/Other: None Antimicrobials, Start/End Dates: 05/29-05/30 cefazolin 05/30- ertapenem 05/30- vancomycin Impression: Ms. Haas is a 62 y/o F w/ PMH of LLE NF s/p debridement and L AKA, R BKA, COPD/asthma on home O2, prior b/l PE 08/2022 (AC on apixaban), FAY on BIPAP, GERD, HTN, OA, depression, fibromyalgia. She presented to [facility] to the orthopedics service 05/28; she was seen 1w postop by ortho following I&Dof L thigh hematoma. CXs obtained at the time were (+) for Finegoldia magna, MSSA. She was taken for I&D of abscess; CXs (+) for GPC. Previously seen by the ID service for LLE OM. The ID service is consulted for LLE AKA SSTI d/t MSSA, Finegoldia magna. Plan: 1. SSTI of LLE AKA site - Patient presented to orthopedic service d/t L AKA hematoma - s/p I+D; CXs pending; previous CXs (+) for MSSA, Finegoldia - Orthopedics following; plan is for repeat washout tomorrow - Will follow CX results and adjust accordingly 2. Chronic obstructive pulmonary disease- on home O2 3. Obstructive sleep apnea- on BiPAP 4. Prior b/l PE 08/2022- AC on apixaban 5. Hx of R foot OM s/p R BKA 6. Gastroesophageal reflux disease 7. Stress urinary incontinence 8. Hypertension 9. Osteoarthritis 10. Obesity 11. Seasonal allergies 12. Vertigo 13. Asthma 14. Depression 15. Fibromyalgia Recommendations: 1. Maintain IV vancomycin + ertapenem 2. Will follow CX results and adjust accordingly 3. Will plan for 6-week total course of therapy Thank you for the consult. The ID service will continue to follow. Total time 75 minutes on this day of encounter includes counseling, coordinating plan of care, record and documentation review before and after visit including documentation and time not explicitly included on EMR time stamp for accounting for open encounter. Cristian Maxwell DO [facility] Infectious Diseases Office Tel. [phone] [id number] Consult note* Cristian Maxwell DO - 05/30/2023 9:54 PM EDTAssociated Order(s): IP CONSULT TO INFECTIOUS DISEASES Images from the original note were not included. [facility] - Infectious Diseases Attending Consult Note Reason for Consult: SSTI of LLE AKA site d/t MSSA, Finegoldia History of Present Illness: Ms. Haas is a 62 y/o F w/ PMH of LLE NF s/p debridement and L AKA, R BKA, COPD/asthma on home O2, prior b/l PE 08/2022 (AC on apixaban), FAY on BIPAP, GERD, HTN, OA, depression, fibromyalgia. She presented to [facility] to the orthopedics service 05/28; she was seen 1w postop by ortho following I&Dof L thigh hematoma. CXs obtained at the time were (+) for Finegoldia magna, MSSA. She was taken for I&D of abscess; CXs (+) for GPC. Previously seen by the ID service for LLE OM. The ID service is consulted for LLE AKA SSTI d/t MSSA, Finegoldia magna. During my assessment, patient reports thatshe is feeling well overall. She reports mild pain in the area of the L AKA stump. Wound VAC is in place; no visible drainage is present. She denies f/c, n/v/d, SOB, cough, or abdominal pain. No further complaints at this time. Medical history: LLE NF s/p debridement and L AKA, R BKA, COPD/asthma on home O2, prior b/l PE 08/2022 (AC on apixaban), FAY on BIPAP, GERD, HTN, OA, depression, fibromyalgia Surgical history: L TKA 2012, tonsillectomy, wisdom tooth extraction, lipoma resection, hysterectomy, LLE I&D, belt abdominoplasty, incontinence surgery, R BKA, L AKA 10/31 Family history: Pancreatic CA in mother and father Social history: Former smoker; quit 1981; denies ETOH or illicit drug use Allergies: amlodipine, clonazepam, ketamine, lisinopril, vancomycin Code status: FULL 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) 07/27/2020 Asthma Cellulitis Constipation Depression Difficult intubation 12/04/2022 Fibromyalgia GERD (gastroesophageal reflux disease) History of transfusion Hx of right BKA (CMS/HCC) (HCC) Hypertension Morbidly obese ([facility]) 02/03/2019 BMI 50.52 On home O2 FAY treated with BiPAP Osteoarthritis Osteomyelitis of right foot ([facility]) SCHEDULED FOR THE SURGERY ON 02/11/2019 Pulmonary embolism ([facility]) Seasonal allergies Shortness of breath URSULA (stress urinary incontinence, female) Vertigo Past Surgical History: Past Surgical History: Procedure Laterality Date ABCESS DRAINAGE Right 08/07/2020 I&D of right BKA hematoma AMPUTATION Left 12/2022 ANKLE SURGERY Left 12/19/2021 ankle I and D with placement of wound vac - dr alyssa PARKS ABDOMINOPLASTY BREAST SURGERY 2006 and abdomin removal for excess COLONOSCOPY COLONOSCOPY EXTREMITY SURGERY Left 01/24/2022 debridement necrotizing fasciitis LLE, wound vac FOOT SURGERY Right 02/11/2019 FOOT SURGERY Right 2019 [place] FOOT SURGERY Right 04/08/2019 I&D right foot with antibiotic spacer FOOT SURGERY Right 04/24/2019 I&D;, external fixator FOOT SURGERY Left 08/04/2021 peroneus longus tenolysis - Dr Gamino HYSTERECTOMY 1997 INCISION AND DRAINAGE OF WOUND Left 11/21/2022 LLE INCONTINENCE SURGERY 11/15/2015 synthetic mid urethral sling,cystoscopy JOINT REPLACEMENT Left TKR LIPOMA RESECTION Right 2015 shoulder ORTHOPEDIC SURGERY [...] Right 05/06/2019 Right Below Knee Amputation (CPT 48581), #2 Excisional debridement right iliac crest (wound 7 cm length, 3 cm width, 7 cm depth) TONSILLECTOMY (HISTORICAL) TOTAL KNEE ARTHROPLASTY Left 2012 ARTHROSCOPY FIRST AND KNEE REPLACED WISDOM TOOTH EXTRACTION WOUND DEBRIDEMENT Left 10/28/2021 irrigation and debridment LLE Current Medications: Current Facility-Administered Medications Medication Dose Route Frequency Provider Last Rate Last Admin acetaminophen (Tylenol) tablet 650 mg 650 mg Oral Q4H Siobhan Esquivel APRN - DATA MINING ANALYST 650 mg at 05/30/23 1845 albuterol 108 (90 Base) MCG/ACT inhaler 2 puff 2 puff Inhalation q6h PRN Xochitl Figueroa MD 2 puff at 05/30/232127 amitriptyline (Elavil) tablet 100 mg 100 mg Oral Nightly Deanna Moser MD 100 mg at 05/30/232123 budesonide (Pulmicort) 0.5 MG/2ML nebulizer solution 0.25 mg 0.25 mg Nebulization BID PRN Rehana Villa MD 0.25 mg at 05/30/23 1054 citalopram (CeleXA) tablet 20 mg 20 mg Oral Daily Deanna Moser MD 20 mg at 05/30/23 0913 diphenhydrAMINE (BENADryl) injection 25 mg 25 mg IntraVENous BID PRN Xochitl Figueroa MD 25 mg at 05/30/23 1732 docusate sodium (Colace) capsule 100 mg 100 mg Oral BID Deanna Moser MD 100 mg at 05/30/23 2124 enoxaparin (Lovenox) syringe 30 mg 30 mg SubCUTAneous 2 times per day Farrukh Tim MD 30 mg at 05/30/23 1040 ertapenem (INVanz) 1,000 mg in sodium chloride 0.9 % 50 mL IVPB Mini-Bag Plus 1,000 mg IntraVENous q24h Cristian Maxwell DO Stopped at 05/30/23 1642 gabapentin (Neurontin) capsule 300 mg 300 mg Oral BID Siobhan Esquivel APRN - DATA MINING ANALYST 300 mg at 05/30/23 2124 HYDROmorphone (Dilaudid) injection 0.25 mg 0.25 mg IntraVENous q4h PRN MITCH Butcher CNP Or HYDROmorphone (Dilaudid) injection 0.5 mg 0.5 mg IntraVENous q4h PRN Siobhan Esquivel APRN - DATA MINING ANALYST 0.5 mg at 05/30/232122 lactated Ringer's (LR) infusion 50 mL/hr IntraVENous Continuous Farrukh Tim MD 50 mL/hr at 05/29/23 1129 Continued by Anesthesia at 05/29/23 1129 Lidocaine 4 % patch 1 patch 1 patch Topical Daily MITCH Butcher CNP LORazepam (Ativan) tablet 0.5 mg 0.5 mg Oral q8h PRN Deanna Moser MD 0.5 mg at 05/30/23 2124 methocarbamol (Robaxin) tablet 750 mg 750 mg Oral q8h PRN MITCH Butcher CNP 750 mg at 05/30/23 1222 mometasone-formoterol (Dulera 200) 200-5 MCG/ACT inhaler 2 puff 2 puff Inhalation BID Deanna Moser MD 2 puff at 05/30/23 212 montelukast (Singulair) tablet 10 mg 10 mg Oral Daily Deanna Moser MD 10 mg at 05/30/23 0913 naloxone (Narcan) 0.4 mg in 0.9% sodium chloride 10 mL syringe IntraVENous PRN MITCH Butcher CNP ondansetron ODT (Zofran-ODT) disintegrating tablet 4 mg 4 mg Oral q8h PRN Farrukh Tim MD Or ondansetron (Zofran) injection 4 mg 4 mg IntraVENous q6h PRN Farrukh Tim MD oxyCODONE (Roxicodone) immediate release tablet 5 mg 5 mg Oral q4h PRN MITCH Butcher CNP 5 mg at 05/29/23 2201 Or oxyCODONE (Roxicodone) immediate release tablet 10 mg 10 mg Oral q4h PRN MITCH Butcher CNP 10 mg at 05/30/23 1606 pantoprazole (ProtoNix) EC tablet 40 mg 40 mg Oral qAM AC Deanna Moser MD 40 mg at 05/30/23 0533 polyethylene glycol (PEG) 3350 (Miralax) packet 17 g 17 g Oral Daily PRN Farrukh Tim MD [START ON 05/31/2023] vancomycin (Vancocin) 1250 mg in NS 250 mL IVPB (compounded premix) 1,250 mg IntraVENous q12h Cristian Maxwell DO Allergies: Allergies Allergen Reactions Amlodipine Swelling Cefepime Itching Clonazepam Other reaction(s): Other (See Comments) made me sleep & cry Ketamine Lisinopril Swelling Vancomycin Rash Social History: Social History Socioeconomic History Marital status: Spouse name: Not on file Number of children: Not on file Years of education: Not on file Highest education level: Not on file Occupational History Not on file Tobacco Use Smoking status: Former Packs/day: 0.15 Years: 5.00 Pack years: 0.75 Types: Cigarettes Quit date: 10/01/1981 Years since quittin.6 Passive exposure: Past Smokeless tobacco: Never Vaping Use Vaping Use: Never used Substance and Sexual Activity Alcohol use: Not Currently Drug use: No Sexual activity: Yes Partners: Male Other Topics Concern Not on file Social History Narrative Has been in rehab facility in [place] Lives alone, son close Friends help Social Determinants of Health Financial Resource Strain: Not on file Food Insecurity: Not on file Transportation Needs: No Transportation Needs (12/04/2022) PRAPARE - Transportation Lack of Transportation (Medical): No Lack of Transportation (Non-Medical): No Physical Activity: Not on file Stress: Not on file Social Connections: Not on file Intimate Partner Violence: Not At Risk (12/04/2022) Humiliation, Afraid, Rape, and Kick questionnaire Fear of Current or Ex-Partner: No Emotionally Abused: No Physically Abused: No Sexually Abused: No Housing Stability: Unknown (05/29/2023) Housing Stability Vital Sign Unable to Pay for Housing in the Last Year: No Number of Places Lived in the Last Year: Not on file Unstable Housing in the Last Year: No Family History: Family History Problem Relation Name Age of Onset Pancreatic cancer Mother Pancreatic cancer Father Review of Systems: Review of Systems Constitutional: Negative for appetite change, chills, diaphoresis, fatigue and fever. Respiratory: Negative for cough, shortness of breath and wheezing. Cardiovascular: Negative for palpitations and leg swelling. Gastrointestinal: Negative for abdominal distention, abdominal pain, nausea and vomiting. Musculoskeletal: Negative for arthralgias, joint swelling and myalgias. Skin: Negative for color change, pallor, rash and wound. Vitals: Patient Vitals for the past 24 hrs: BP Temp Temp src Pulse Resp SpO2 Height 05/30/23 2034 138/79 36.5 C (97.7 F) Temporal 96 16 94 % -- 05/30/23 1057 -- -- -- 92 16 93 % -- 05/30/23 0817 -- -- -- -- -- -- 5' 7.01 (1.702 m) 05/30/23 0808 131/81 36.4 C (97.6 F) Temporal 88 16 94 % -- Physical Exam: Physical Exam Constitutional: General: She is not in acute distress. Appearance: Normal appearance. She is normal weight. She is not ill-appearing, toxic-appearing or diaphoretic. HENT: Head: Normocephalic and atraumatic. Nose: Nose normal. Mouth/Throat: Mouth: Mucous membranes are moist. Pharynx: Oropharynx is clear. No oropharyngeal exudate or posterior oropharyngeal erythema. Eyes: General: No scleral icterus. Extraocular Movements: Extraocular movements intact. Pupils: Pupils are equal, round, and reactive to light. Cardiovascular: Rate and Rhythm: Normal rate and regular rhythm. Pulses: Normal pulses. Heart sounds: Normal heart sounds. No murmur heard. No friction rub. No gallop. Pulmonary: Effort: Pulmonary effort is normal. No respiratory distress. Breath sounds: Normal breath sounds. No wheezing, rhonchi or rales. Comments: Diminished breath sounds b/l Prolonged expiratory phase Abdominal: General: Abdomen is flat. Bowel sounds are normal. Palpations: Abdomen is soft. Tenderness: There is no abdominal tenderness. There is no guarding or rebound. Musculoskeletal: General: Swelling and deformity present. Normal range of motion. Cervical back: Neck supple. Comments: PEX s/p L AKA, R BKA Wound VAC in place on L AKA stump No surrounding erythema or discharge Skin: General: Skin is warm and dry. Capillary Refill: Capillary refill takes less than 2 seconds. Coloration: Skin is not pale. Findings: No erythema, lesion or rash. Neurological: General: No focal deficit present. Mental Status: She is alert. Psychiatric: Mood and Affect: Mood normal. Judgment: Judgment normal. Labs: Lab Results Component Value Date/Time NA 135 05/30/2023 0105 K 4.4 05/30/2023 010 CL 100 05/30/2023 010 CO2 26 05/30/2023104 BUN 15 05/30/2023 0105 CREATININE 0.76 05/30/2023 0105 CREATININE 0.70 02/14/2022 0918 GLUCOSE 220 (H) 05/30/2023 010 CALCIUM 8.8 05/30/2023 010 PROT 6.3 12/12/2022 0612 BILITOT 0.3 12/12/2022 0612 ALKPHOS 140 (H) 12/12/2022 0612 AST 24 12/12/2022 0612 ALT 18 12/12/2022 0612 PROCAL 0.04 12/04/2022 0149 PROCAL 0.02 11/11/2022 0301 PROCAL 1.77 (H) 01/25/2022 0618 Lab Results Component Value Date/Time WBC 6.9 05/30/2023 010 HGB 11.7 05/30/2023 010 HCT 36.7 05/30/2023 010 PLT 293 05/30/2023 010 GRANULOCYTES 66.9 02/14/2022 0918 LYMPHOPCT 10.4 (L) 05/30/2023 010 MONOPCT 3.2 05/30/2023 010 LABEOS 3.5 02/14/2022 0918 BASOPCT 0.3 05/30/2023 010 NEUTROABS 6.0 05/30/2023 010 Micro: 05/22 LLE fluid CXs (+) for Finegoldia magna, MSSA 05/29 L thigh fluid CXs (+) for GPCs Lines/Drains/Airways: 05/29 RUE PIV Radiography/Echo/Other: None Antimicrobials, Start/End Dates: 05/29-05/30 cefazolin 05/30- ertapenem 05/30- vancomycin Impression: Ms. Haas is a 62 y/o F w/ PMH of LLE NF s/p debridement and L AKA, R BKA, COPD/asthma on home O2, prior b/l PE 08/2022 (AC on apixaban), FAY on BIPAP, GERD, HTN, OA, depression, fibromyalgia. She presented to [facility] to the orthopedics service 05/28; she was seen 1w postop by ortho following I&Dof L thigh hematoma. CXs obtained at the time were (+) for Finegoldia magna, MSSA. She was taken for I&D of abscess; CXs (+) for GPC. Previously seen by the ID service for LLE OM. The ID service is consulted for LLE AKA SSTI d/t Marlyn OTERO. Plan: 1. SSTI of LLE AKA site - Patient presented to orthopedic service d/t L AKA hematoma - s/p I+D; CXs pending; previous CXs (+) for NADIRAVenusia - Orthopedics following; plan is for repeat washout tomorrow - Will follow CX results and adjust accordingly 2. Chronic obstructive pulmonary disease- on home O2 3. Obstructive sleep apnea- on BiPAP 4. Prior b/l PE 08/2022- AC on apixaban 5. Hx of R foot OM s/p R BKA 6. Gastroesophageal reflux disease 7. Stress urinary incontinence 8. Hypertension 9. Osteoarthritis 10. Obesity 11. Seasonal allergies 12. Vertigo 13. Asthma 14. Depression 15. Fibromyalgia Recommendations: 1. Maintain IV vancomycin + ertapenem 2. Will follow CX results and adjust accordingly 3. Will plan for 6-week total course of therapy Thank you for the consult. The ID service will continue to follow. Total time 75 minutes on this day of encounter includes counseling, coordinating plan of care, record and documentation review before and after visit including documentation and time not explicitly included on EMR time stamp for accounting for open encounter. Cristian Maxwell DO [facility] Infectious Diseases Office Tel. [phone] * Oj Thomason, [facility] - 05/30/2023 4:03 PM EDT Pharmacy Managed Vancomycin Dosing Service Consult Note Consult Date: 05/30/23 Consulted By: Cristian Maxwell Room:[id number] A Patient Name: Siobhan Haas Allergies: Amlodipine, Cefepime, Clonazepam, Ketamine, Lisinopril, and Vancomycin Age: 62 y.o. Sex: female Ht: Height: 170.2 cm (5' 7.01) TBW: Weight: (!) 145 kg (320 lb) BMI: Body mass index is 50.11 kg/m . DW: 95 kg Calculated CrCl: 114 based on adjusted Lab Results Component Value Date CREATININE 0.76 05/30/2023 CREATININE 0.53 12/12/2022 CREATININE 0.58 12/10/2022 BUN 15 05/30/2023 BUN 18 (H) 12/12/2022 BUN 19 (H) 12/07/2022 WBC 6.9 05/30/2023 WBC 6.7 12/12/2022 WBC 6.8 12/07/2022 Infectious Diagnosis: Bone and Joint with risk of sepsis (goal AUC 400-600 ) Antimicrobials: Patient recently received an antibiotic (last 12 hours) Date/Time Action Medication Dose Rate 05/30/23 1105 New Bag ceFAZolin (Ancef) 3,000 mg in sodium chloride 0.9 % 100 mL IVPB 3,000 mg 200 mL/hr Assessment/Plan: Start Vancomycin 1.75 grams, then 1.25 gm Q 12 hours based on patient age, weight, renal function, and infectious diagnosis. The current predicted AUC is showing at 448 for this dosing. Will assess trough prior to the 4th dose and adjust as appropriate. Will follow renal function closely. Thank you for this consult. Please page/call with questions. Date: 05/30/23 Time: 3:58 PM Name: Oj Thomason RPh, . Pager: . Phone: [phone] * Siobhan Esquivel APRN - DATA MINING ANALYST - 05/30/2023 9:52 AM EDTAssociated Order(s): IP CONSULT TO ANESTHESIOLOGY - ACUTE PAIN SERVICE PAGING: The Acute Pain Service providers are available exclusively via [employer] SECURE CHAT. APS does not utilize pagers. 05/30/2023 Lab Results Component Value Date CREATININE 0.53 12/12/2022 CREATININE 0.70 02/14/2022 AST 24 12/12/2022 ALT 18 12/12/2022 Pain Management Adjuvants: 0700 --> 0700 05/29/2023 Scheduled APAP 2950mg Gabapentin 700mg Lidocaine patches refused PRN Hydromorphone 0.5mg Methocarbamol 750mg Oxycodone 25mg Assessment / Pain Management Plan: RTOR 05/31 and then possibly 06/05, 06/08? Acute Postsurgical LLE pain Multimodal pain regimen: Continue Acetaminophen 650 mg po q4h scheduled ATC. Continue Gabapentin 300 mg po BID Continue Lidocaine patch x 1. Cut and place as needed. Continue Hydromorphone 0.25 mg - 0.5 mg IVP q4h prn moderate to severe breakthrough pain. Please utilize oral medications first. Continue Methocarbamol 750 mg PO TID PRN. Continue Oxycodone 5 - 10 mg po q4h prn moderate to severe breakthrough pain. Continue Naloxone 0.4 mg IVP prn opioid reversal. PRN if respiratory rate is less than 6/min and patient is difficult to arouse then notify physicianSTAT. Mix 9 mL of sodium chloride 0.9% with 0.4 mg (1 mL) of naloxone (NARCAN) in 10 mL syringe. (Note: dilution is 0.04 mg/mL) Give 0.08 mg (2 mL of special dilution), slow IV push, repeat up to 0.4mg (10 mL) or until patient is responsive to physical stimulation and respiratory rate is equal to o r greater than 6 breaths/min. Continue to observe, if no response within 3 minutes of administration of 0.4 mg (10 mL) total, repeat dose (0.4 mg as administered previously). 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, LEFT THIGH (ABOVE KNEE AMPUTATION) INCISION AND DRAINAGE on 05/29 See #1 Constipation At risk for opioid induced constipation Patient currently receiving opioids for pain management necessitating a bowel regimen. Recommend initiating scheduled Sennakot-S 8.6/50mg, 1 tablet PO BID. Would also recommend Milk of Magnesia 400mg/5ml, administer 30mL by mouth daily PRN. Opioid Use Acute: Expected to be short term post op pain, see #1 OARRS reviewed for past two years. (Intermittent opiates RX) Reviewed and educated patient on responsible use [...] patient who appears to understand and agrees. Subjective: We have been asked to see this 62 y.o. female for postoperative pain management s/p LEFT THIGH (ABOVE KNEE AMPUTATION) INCISION AND DRAINAGE on 05/29 Reviewed ecg NAEON, no pages. On arrival, pt sitting up in bed. Pt appears well, comfortable. Pt very pleasant, talkative and cooperative throughout exam, happy with current pain regimen. Pain controlled. Pt with plans to RTOR tomorrow and possibly Sunday/Sunday next week. Tolerating diet, denies n/v. Patient educated on pain regimen, aware that oxycodone, dilaudid, methocarbamol are PRN and patient must ask for these medications when needed. Educated patient to utilize oral pain medications as first line and reserve IV pain medications for severe breakthrough pain. Pt is realistic about pain control: Not all pain will be taken away, but pain should be tolerable/manageable with current regimen. Pt instructed to have staff page APS if pain becomes uncontrolled when utilizing present regimen. Pt agreeable, denies further questions. PMH reviewed below Pain Location: LLE Aggravating Factors: Moving Sedation score: 1: Awake and alert Pain Severity: moderate. Pain well controlled Pain Quality: aching Alleviating Factors: Rest/Pain medications Pain Management: n/a The patient's medical history and physical assessment, medications, allergies, patient's current medical condition, imaging, and labs were reviewed as part of this consultation. [x] Patient's Medications have been reviewed. [x] Patient's OARRS report (PDMP) have been reviewed. Filled Written Drug QTY Days 05/25/2023 05/25/2023 Oxycodone-Acetaminophen 5-325 28.00 7 05/18/2023 05/18/2023 Oxycodone-Acetaminophen 5-325 28.00 7 05/08/2023 05/08/2023 Oxycodone-Acetaminophen 5-325 28.00 7 04/24/2023 04/24/2023 Gabapentin 300 Mg Capsule 180.00 90 02/22/2023 02/22/2023 Oxycodone-Acetaminophen 5-325 20.00 5 01/16/2023 01/16/2023 Alprazolam 0.5 Mg Tablet 30.00 30 11/27/2022 11/27/2022 Oxycodone Hcl (Ir) 10 Mg Tab 15.00 3 10/09/2022 10/05/2022 Oxycodone-Acetaminophen 5-325 56.00 28 09/18/2022 09/18/2022 Alprazolam 0.5 Mg Tablet 63.00 21 09/11/2022 09/11/2022 Oxycodone-Acetaminophen 5-325 56.00 28 06/06/2022 06/06/2022 Oxycodone-Acetaminophen 5-325 56.00 28 05/15/2022 05/08/2022 Oxycodone-Acetaminophen 5-325 56.00 28 04/10/2022 04/10/2022 Pregabalin 50 Mg Capsule 56.00 28 04/10/2022 04/10/2022 Oxycodone-Acetaminophen 5-325 56.00 28 03/09/2022 03/06/2022 Gabapentin 300 Mg Capsule 360.00 90 Social History Tobacco Use Smoking Status Former Packs/day: 0.15 Years: 5.00 Pack years: 0.75 Types: Cigarettes Quit date: 10/01/1981 Years since quittin.6 Passive exposure: Past Smokeless Tobacco Never Social History Substance and Sexual Activity Alcohol Use Not Currently Social History Substance and Sexual Activity Drug Use No Objective Findings: Height: 170.2 cm (5' 7) (chi AKA) Weight: (!) 145 kg (320 lb) BMI (Calculated): 50.11 Vital signs: Blood pressure (!) 140/80, pulse 72, temperature 36.1 C (97 F), temperature source Temporal, resp. rate 14, height 1.702 m (5' 7), weight (!) 145 kg (320 lb), SpO2 93 %, not currently . Allergies: Amlodipine, Cefepime, Clonazepam, Ketamine, Lisinopril, and Vancomycin 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) 07/27/2020 Asthma Cellulitis Constipation Depression Difficult intubation 12/04/2022 Fibromyalgia GERD (gastroesophageal reflux disease) History of transfusion Hx of right BKA (CMS/HCC) (HCC) Hypertension Morbidly obese (HCC) 02/03/2019 BMI 50.52 On home O2 FAY treated with BiPAP Osteoarthritis Osteomyelitis of right foot (HCC) SCHEDULED FOR THE SURGERY ON 02/11/2019 Pulmonary embolism ([facility]) Seasonal allergies Shortness of breath URSULA (stress urinary incontinence, female) Vertigo Past Surgical History: Procedure Laterality Date ABCESS DRAINAGE Right 08/07/2020 I&D of right BKA hematoma AMPUTATION Left 12/2022 ANKLE SURGERY Left 12/19/2021 ankle I and D with placement of wound vac - dr alyssa PARKS ABDOMINOPLASTY BREAST SURGERY 2006 and abdomin removal for excess COLONOSCOPY COLONOSCOPY EXTREMITY SURGERY Left 01/24/2022 debridement necrotizing fasciitis LLE, wound vac FOOT SURGERY Right 02/11/2019 FOOT SURGERY Right 2019 [place] FOOT SURGERY Right 04/08/2019 I&D right foot with antibiotic spacer FOOT SURGERY Right 04/24/2019 I&D;, external fixator FOOT SURGERY Left 08/04/2021 peroneus longus tenolysis - Dr Gamino HYSTERECTOMY 1997 INCISION AND DRAINAGE OF WOUND Left 11/21/2022 LLE INCONTINENCE SURGERY 11/15/2015 synthetic mid urethral sling,cystoscopy JOINT REPLACEMENT Left TKR LIPOMA RESECTION Right 2015 shoulder ORTHOPEDIC SURGERY [...] Right 05/06/2019 Right Below Knee Amputation (CPT 10431), #2 Excisional debridement right iliac crest (wound [...] Diagnosis History of right below knee amputation ([facility]) BKA stump complication ([facility]) 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 ([facility]) Cellulitis of lower leg Back pain Tear of peroneal tendon Depressive disorder Hemorrhage of rectum and anus HTN (hypertension) Pansystolic murmur Chest wall pain Asthma Asthma with acute exacerbation Pain from implanted hardware Obstructive sleep apnea syndrome Chronic obstructive lung disease ([facility]) Morbid obesity ([facility]) Migraine headache Vitamin D deficiency Viral upper respiratory tract infection 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[facility]) Swelling of left lower extremity Shortness of breath Seasonal allergies Superficial incisional surgical site infection Rheumatoid arthritis ([facility]) Restless legs syndrome Anxiety Arthritis of right [...] (BMI) Gastroesophageal reflux disease Hiatal hernia Callosity long term care pharmacist (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 antibiotics Left leg cellulitis Dehiscence of closure of skin, sequela Necrotizing soft tissue infection Infected wound Osteomyelitis ([facility]) Hematoma Cellulitis of right foot Post-op pain Osteomyelitis of right foot ([facility]) Open wound of right foot MSSA (methicillin susceptible Staphylococcus aureus) infection Right foot infection Hardware complicating wound infection (CMS/HCC) ([facility]) Right foot pain Postoperative pain Cellulitis Lymphedema Stump pain ([facility]) Abrasion of lower leg with infection, initial encounter PE (pulmonary thromboembolism) ([facility]) Surgical wound infection HLD (hyperlipidemia) Superficial venous thrombosis of left upper extremity Cellulitis of left lower extremity 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, initial encounter ([facility]) Review of Systems Constitutional: Negative for chills and fever. HENT: Negative for trouble swallowing. Eyes: Negative for visual disturbance. Respiratory: Negative for shortness of breath. Cardiovascular: Negative for chest pain. Gastrointestinal: Negative for abdominal pain, nausea and vomiting. Musculoskeletal: Positive for arthralgias and gait problem. Skin: Positive for wound (surgical). Neurological: Negative for dizziness and headaches. Psychiatric/Behavioral: Negative for agitation and confusion. The patient is not nervous/anxious. Physical Exam Vitals and nursing note reviewed. Constitutional: General: She is not in acute distress. Appearance: Normal appearance. She is obese. She is not ill-appearing, toxic- appearing or diaphoretic. HENT: Head: Normocephalic and atraumatic. Eyes: General: Vision grossly intact. Cardiovascular: Rate and Rhythm: Normal rate. Pulmonary: Effort: Pulmonary effort is normal. Abdominal: Palpations: Abdomen is soft. Musculoskeletal: General: Tenderness present. Left upper leg: Tenderness present. Comments: Veraflow vac to LLE Right Lower Extremity: Right leg is amputated below knee. Left Lower Extremity: Left leg is amputated above knee. Skin: General: Skin is warm and dry. Neurological: Mental Status: She is alert and oriented to person, place, and time. Psychiatric: Attention and Perception: Attention normal. Mood and Affect: Mood normal. Speech: Speech normal. Behavior: Behavior normal. Behavior is cooperative. PAGING: The Acute Pain Service providers are available exclusively via [employer]. APS does not utilize pagers. * Deanna Moser MD - 05/29/2023 5:24 PM EDTAssociated Order(s): IP CONSULT TO HOSPITALIST Images from the original note were not included. Hospital Medicine Consult Patient - Siobhan Haas, Age - 62 y.o. - 1960 Room Number - @[email or web address]@ Consulting - Rusty Mercado MD [id number] Date of Admission - 05/29/2023 8:37 AM Hospital Day - 0 Reason for Consult: Medical Management HISTORY OF PRESENT ILLNESS: Siobhan is a 62 y.o. female pmhx below who presents for an elective left TKA. Patient has had recurrent hematomas of the left lower extremity and wound VAC was beeping and given error message that was clogged throughout the weekend. Started on Bactrim therapy last Sunday. Denies chest pain, sob, abdominal pain, nausea, vomiting, diarrhea, constipation, fevers, or chills. Hospital service consulted for medical management. 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 ([facility]) 07/27/2020 Asthma Cellulitis Constipation Depression Difficult intubation 12/04/2022 Fibromyalgia GERD (gastroesophageal reflux disease) History of transfusion Hx of right BKA ([facility]/HCC) ([facility]) Hypertension Morbidly obese ([facility]) 02/03/2019 BMI 50.52 On home O2 FAY treated with BiPAP Osteoarthritis Osteomyelitis of right foot ([facility]) SCHEDULED FOR THE SURGERY ON 02/11/2019 Pulmonary embolism ([facility]) Seasonal allergies Shortness of breath URSULA (stress urinary incontinence, female) Vertigo Past Surgical History: Past Surgical History: Procedure Laterality Date ABCESS DRAINAGE Right 08/07/2020 I&D of right BKA hematoma AMPUTATION Left 12/2022 ANKLE SURGERY Left 12/19/2021 ankle I and D with placement of wound vac - dr alyssa PARKS ABDOMINOPLASTY BREAST SURGERY 2006 and abdomin removal for excess COLONOSCOPY COLONOSCOPY EXTREMITY SURGERY Left 01/24/2022 debridement necrotizing fasciitis LLE, wound vac FOOT SURGERY Right 02/11/2019 FOOT SURGERY Right 2019 [place] FOOT SURGERY Right 04/08/2019 I&D right foot with antibiotic spacer FOOT SURGERY Right 04/24/2019 I&D;, external fixator FOOT SURGERY Left 08/04/2021 peroneus longus tenolysis - Dr Gamino HYSTERECTOMY 1997 INCISION AND DRAINAGE OF WOUND Left 11/21/2022 LLE INCONTINENCE SURGERY 11/15/2015 synthetic mid urethral sling,cystoscopy JOINT REPLACEMENT Left TKR LIPOMA RESECTION Right 2015 shoulder ORTHOPEDIC SURGERY [...] Right 05/06/2019 Right Below Knee Amputation (CPT 19070), #2 Excisional debridement right iliac crest (wound 7 cm length, 3 cm width, 7 cm depth) TONSILLECTOMY (HISTORICAL) TOTAL KNEE ARTHROPLASTY Left 2013 ARTHROSCOPY FIRST AND KNEE REPLACED WISDOM TOOTH EXTRACTION WOUND DEBRIDEMENT Left 10/28/2021 irrigation and debridment LLE Medications: acetaminophen, 650 mg, Oral, Q4H ceFAZolin, 3,000 mg, IntraVENous, q8h enoxaparin, 30 mg, SubCUTAneous, 2 times per day gabapentin, 300 mg, Oral, BID Lidocaine, 1 patch, Topical, Daily lactated Ringer's, 50 mL/hr, Last Rate: 50 mL/hr (05/29/23 1129) PRN medications: HYDROmorphone OR HYDROmorphone, HYDROmorphone, methocarbamol, naloxone (Narcan) 0.4 mg in 0.9% sodium chloride 10 mL syringe, ondansetron ODT OR ondansetron, oxyCODONE ORoxyCODONE, oxyCODONE, polyethylene glycol (PEG) 3350 Allergies: Amlodipine, Cefepime, Clonazepam, Ketamine, Lisinopril, and Vancomycin Social History: Social History Socioeconomic History Marital status: Spouse name: Not on file Number of children: Not on file Years of education: Not on file Highest education level: Not on file Occupational History Not on file Tobacco Use Smoking status: Former Packs/day: 0.15 Years: 5.00 Pack years: 0.75 Types: Cigarettes Quit date: 10/01/1981 Years since quittin.6 Passive exposure: Past Smokeless tobacco: Never Vaping Use Vaping Use: Never used Substance and Sexual Activity Alcohol use: Not Currently Drug use: No Sexual activity: Yes Partners: Male Other Topics Concern Not on file Social History Narrative Has been in rehab facility in [place] Lives alone, son close Friends help Social Determinants of Health Financial Resource Strain: Not on file Food Insecurity: Not on file Transportation Needs: No Transportation Needs (12/04/2022) PRAPARE - Transportation Lack of Transportation (Medical): No Lack of Transportation (Non-Medical): No Physical Activity: Not on file Stress: Not on file Social Connections: Not on file Intimate Partner Violence: Not At Risk (12/04/2022) Humiliation, Afraid, Rape, and Kick questionnaire Fear of Current or Ex-Partner: No Emotionally Abused: No Physically Abused: No Sexually Abused: No Housing Stability: Unknown (12/04/2022) Housing Stability Vital Sign Unable to Pay for Housing in the Last Year: No Number of Places Lived in the Last Year: Not on file Unstable Housing in the Last Year: No Family History: @FAMHXNH@ REVIEW OF SYSTEMS: 10 point ROS obtained, as per HPI, otherwise NEG Physical Exam: Vitals: BP 130/70 Pulse 85 Temp 36.7 C (98.1 F) (Temporal) Resp 17 Ht 1.702 m (5' 7) Comment: chi AKA Wt (!) 145 kg (320 lb) SpO2 95% BMI 50.12 kg/m BMI Classification: Morbidly Obese (>40.0) Pulse Ox: SpO2 Av.1 % Min: 93 % Max: 97 % Supplemental O2: O2 Flow Rate (L/min): 3 L/min General appearance: No apparent distress, appears stated age and cooperative with exam. HEENT: Normal cephalic, atraumatic without obvious deformity. [...] bowel sounds. No rebound or guarding. Musculoskeletal: Left AKA - wrapped. Right BKA Skin: Skin color, texture, turgor normal. No rashes or lesions. Neurologic: Neurovascularly intact without any focal sensory/motor deficits. Cranial nerves: II-XIIintact, grossly non-focal. Psychiatric: Alert and oriented, thought content appropriate, normal insight. LABS: Recent Results (from the past 24 hour(s)) Culture, Aerobic Bacteria with Gram Stain Collection Time: 05/29/23 12:07 PM Specimen: Thigh, Left; Body Fluid Result Value Ref Range Culture Culture in progress Gram Stain Result (A) Many Polymorphonuclear leukocytes per low power field Gram Stain Result Rare Gram positive cocci in clusters (A) Urine Culture: No results found for this or any previous visit. IMAGING: See report Assessment LLE hematomas s/p left thigh AKA I&D POD # 0 Hx of LLE OM s/p AKA (10/2022) Hx of Right foot OM s/p right BKA SONG Debility Hx of PE/DVT on Eliquis COPD on home O2 FAY/OHS on BiPAP Peripheral neuropathy Stress urinary incontinence Fibromyalgia GERD Depression Vertigo Morbid obesity - BMI 50.12 Medical Decision Making - Orthopedic surgery primary - Veraflow vac to LLE, keep until returns to OR on 05/31 for repeat I&D. NWB LLE - ID consulted for abx management - Pain control - Neurochecks -home medications as ordered -am labs, replace lytes prn -PT/OT/increase activity/pain control Anticipated Discharge - Date - TBD - Location - Skilled Facility - Pending the following - Defer to primary Total time spent (which include face to face and non face to face encounters) : 64 minutes Toxic drug monitoring/narrow therapeutic index drug monitoring : # Drug name : Lovenox # Route administered : SubQ # Method of monitoring : CBC Extended Emergency Contact Information Primary Emergency Contact: Luz Marina Mueller Relation: Child Secondary Emergency Contact: Dominga Purcell Relation: Sister -see below for additional orders; further recommendations to follow Orders Placed This Encounter Procedures Fungal stain Aerobic and Anaerobic Culture with Stain Culture, Aerobic Bacteria with Gram Stain Anaerobic culture Potassium with Mg Reflex Protime-INR Potassium CBC auto differential Basic Metabolic Panel w/ Mg Reflex Adult diet Regular Vital Signs Notify patient's primary care provider of admission Turn patient Weight-bearing restrictions Inspect skin integrity every shift; be alert for breakdown Wound Vac - Negative Pressure Wound Therapy - Nursing Instructions Full code Inpatient consult to Hospitalist-- Inpatient consult to Infectious Diseases--[facility] [place] INFECTIOUS DISEASE Inpatient consult to Anesthesiology - Acute Pain Service--ANESTHESIA - ACUTE PAIN SERVICE Initiate Oxygen Therapy Protocol Admit to inpatient Admit to inpatient Transfer patient to new unit Thank you for allowing us to participate in the care and management of this patient. Deanna Moesr MD Division of Hospitalist Medicine Inpatient Medical Services/[facility] [place] documented in this [facility]08-30-2023 Consult note* Oj Thomason, [facility] - 05/30/2023 4:03 PM EDT Pharmacy Managed Vancomycin Dosing Service Consult Note Consult Date: 05/30/23 Consulted By: Cristian Maxwell Room:[id number] A Patient Name: Siobhan Haas Allergies: Amlodipine, Cefepime, Clonazepam, Ketamine, Lisinopril, and Vancomycin Age: 62 y.o. Sex: female Ht: Height: 170.2 cm (5' 7.01) TBW: Weight: (!) 145 kg (320 lb) BMI: Body mass index is 50.11 kg/m . DW: 95 kg Calculated CrCl: 114 based on adjusted Lab Results Component Value Date CREATININE 0.76 05/30/2023 CREATININE 0.53 12/12/2022 CREATININE 0.58 12/10/2022 BUN 15 05/30/2023 BUN 18 (H) 12/12/2022 BUN 19 (H) 12/07/2022 WBC 6.9 05/30/2023 WBC 6.7 12/12/2022 WBC 6.8 12/07/2022 Infectious Diagnosis: Bone and Joint with risk of sepsis (goal AUC 400-600 ) Antimicrobials: Patient recently received an antibiotic (last 12 hours) Date/Time Action Medication Dose Rate 05/30/23 1105 New Bag ceFAZolin (Ancef) 3,000 mg in sodium chloride 0.9 % 100 mL IVPB 3,000 mg 200 mL/hr Assessment/Plan: Start Vancomycin 1.75 grams, then 1.25 gm Q 12 hours based on patient age, weight, renal function, and infectious diagnosis. The current predicted AUC is showing at 448 for this dosing. Will assess trough prior to the 4th dose and adjust as appropriate. Will follow renal function closely. Thank you for this consult. Please page/call with questions. Date: 05/30/23 Time: 3:58 PM Name: Oj Thomason RPh, . Pager: . Phone: [phone] [employer] [id number] Note* Care Coordination - Janessa Nava RN - 05/30/2023 12:32 PM EDT Care Managment Initial Assessment Date: 05/30/2023 Patient Name: Siobhan Haas : 1960 Patient Information Source of Information: Patient Cognition/Language: WFL - Within Functional Limits Permission given to speak with patient entry level account representative/caregiver as indicated: Confirmation of Payer with patient/family: Yes Payer Name: [employer] Medicare Advantage [place]: No Confirmation of Primary Care Physician: Confirmed PCP Name: Oj Maddox Seen in last 2 years?: Yes Primary Caregiver: Self If assistance needed, confirmed caregiver ready, willing and able to care for patient at discharge: Confirmed with: Living Arrangements Current Residence: House Number of Floors 2 Number of Entry Steps: (ramp) Bed/Bath Levels: Both first floor Facility: Facility Name: Plan to Return: Lives with: Children (adult son) Support Systems: Children, Family members, Friends/neighbors Activities of Daily Living Ambulation: Assistance Bathing/Dressing: Assistance Elimination/Continence/Toileting: Feeding: Independent Who Assists with Activities of Daily Living: son, daughter Instrumental Activities of Daily Living Prescription Coverage: Yes [facility] Medication Management: Independent Transportation/Shopping: Assistance Provider Transportation/Shopping Assistance Provider Name: son, daughter Transportation Mode: Wheelchair van Needs Assistance with Transportation at Discharge: Yes Meal Preparation: Independent Laundry/Cleaning: Assistance Provider Finances/Bill Paying: Independent Communication: Independent Types of Care Services/Equipment Utilized Care Services: Dialysis Type: Durable Medical Equipment: Hospital Bed, Wheelchair (standard or power), Raised Toilet Seat, ShowerSeat, Other (Comment) (trapeze) Patient's Goal/Discharge Plan Patient expects to be discharged to: pt wants to return home Discharge Planning Actions: Continue to follow Patient's Choice Rights and [employer] and Collaborative Relationships Disclosed as Indicated for Post-Acute Care: Interdisciplinary Team Engagement: Social Work Referral for: Additional Information: 62 yo female admitted to for surgery 05/29/23: I&D of abscess on L AKA with application of wound vac. Pt also has hx of R BKA. Plan to RTOR tomorrow for repeat I&D. Met with pt; explained role of tcc. Pt's adult son lives with her. She is mostly independent adls with her power w/c. She also has a hospital bed, trapeze, shower chair and ramp. No active home care at this time per pt. Pt st ates she really does not want to go to rehab or snf at discharge. She would prefer to go home. Anticipate PT/OT evals s/p second I&D to assist with dc planning. Tcc will contin ue to follow. Janessa Nava [id number] Note* Care Coordination - Janessa Nava RN - 05/30/2023 12:32 PM EDT Care Managment Initial Assessment Date: 05/30/2023 Patient Name: Siobhan Haas : 1960 Patient Information Source of Information: Patient Cognition/Language: WFL - Within Functional Limits Permission given to speak with patient entry level account representative/caregiver as indicated: Confirmation of Payer with patient/family: Yes Payer Name: [facility] Medicare Advantage : No Confirmation of Primary Care Physician: Confirmed PCP Name: Oj Maddox Seen in last 2 years?: Yes Primary Caregiver: Self If assistance needed, confirmed caregiver ready, willing and able to care for patient at discharge: Confirmed with: Living Arrangements Current Residence: House Number of Floors 2 Number of Entry Steps: (ramp) Bed/Bath Levels: Both first floor Facility: Facility Name: Plan to Return: Lives with: Children (adult son) Support Systems: Children, Family members, Friends/neighbors Activities of Daily Living Ambulation: Assistance Bathing/Dressing: Assistance Elimination/Continence/Toileting: Feeding: Independent Who Assists with Activities of Daily Living: son, daughter Instrumental Activities of Daily Living Prescription Coverage: Yes Pharmacy Used: [facility] Medication Management: Independent Transportation/Shopping: Assistance Provider Transportation/Shopping Assistance Provider Name: son, daughter Transportation Mode: Wheelchair van Needs Assistance with Transportation at Discharge: Yes Meal Preparation: Independent Laundry/Cleaning: Assistance Provider Finances/Bill Paying: Independent Communication: Independent Types of Care Services/Equipment Utilized Care Services: Dialysis Type: Durable Medical Equipment: Hospital Bed, Wheelchair (standard or power), Raised Toilet Seat, ShowerSeat, Other (Comment) (trapeze) Patient's Goal/Discharge Plan Patient expects to be discharged to: pt wants to return home Discharge Planning Actions: Continue to follow Patient's Choice Rights and [employer] and Collaborative Relationships Disclosed as Indicated for Post-Acute Care: Interdisciplinary Team Engagement: Social Work Referral for: Additional Information: 62 yo female admitted to for surgery 05/29/23: I&D of abscess on L AKA with application of wound vac. Pt also has hx of R BKA. Plan to RTOR tomorrow for repeat I&D. Met with pt; explained role of tcc. Pt's adult son lives with her. She is mostly independent adls with her power w/c. She also has a hospital bed, trapeze, shower chair and ramp. No active home care at this time per pt. Pt st ates she really does not want to go to rehab or snf at discharge. She would prefer to go home. Anticipate PT/OT evals s/p second I&D to assist with dc planning. Tcc will contin ue to follow. Janessa Nava RN [id number] Consult note* Siobhan Sierra, SUPERVISOR HAND SILVERING - DATA MINING ANALYST - 05/30/2023 9:52 AM EDTAssociated Order(s): IP CONSULT TO ANESTHESIOLOGY - ACUTE PAIN SERVICE PAGING: The Acute Pain Service providers are available exclusively via [employer]. APS does not utilize pagers. 05/30/2023 Lab Results Component Value Date CREATININE 0.53 12/12/2022 CREATININE 0.70 02/14/2022 AST 24 12/12/2022 ALT 18 12/12/2022 Pain Management Adjuvants: 0700 --> 0700 05/29/2023 Scheduled APAP 2950mg Gabapentin 700mg Lidocaine patches refused PRN Hydromorphone 0.5mg Methocarbamol 750mg Oxycodone 25mg Assessment / Pain Management Plan: RTOR 05/31 and then possibly 06/05, 06/08? Acute Postsurgical LLE pain Multimodal pain regimen: Continue Acetaminophen 650 mg po q4h scheduled ATC. Continue Gabapentin 300 mg po BID Continue Lidocaine patch x 1. Cut and place as needed. Continue Hydromorphone 0.25 mg - 0.5 mg IVP q4h prn moderate to severe breakthrough pain. Please utilize oral medications first. Continue Methocarbamol 750 mg PO TID PRN. Continue Oxycodone 5 - 10 mg po q4h prn moderate to severe breakthrough pain. Continue Naloxone 0.4 mg IVP prn opioid reversal. PRN if respiratory rate is less than 6/min and patient is difficult to arouse then notify physicianSTAT. Mix 9 mL of sodium chloride 0.9% with 0.4 mg (1 mL) of naloxone (NARCAN) in 10 mL syringe. (Note: dilution is 0.04 mg/mL) Give 0.08 mg (2 mL of special dilution), slow IV push, repeat up to 0.4mg (10 mL) or until patient is responsive to physical stimulation and respiratory rate is equal to or greater than 6 breaths/min. Continue to observe, if no response within 3 minutes of administration of 0.4 mg (10 mL) total, repeat dose (0.4 mg as administered previously). 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, LEFT THIGH (ABOVE KNEE AMPUTATION) INCISION AND DRAINAGE on 05/29 See #1 Constipation At risk for opioid induced constipation Patient currently receiving opioids for pain management necessitating a bowel regimen. Recommend initiating scheduled Sennakot-S 8.6/50mg, 1 tablet PO BID. Would also recommend Milk of Magnesia 400mg/5ml, administer 30mL by mouth daily PRN. Opioid Use Acute: Expected to be short term post op pain, see #1 OARRS reviewed for past two years. (Intermittent opiates RX) Reviewed and educated patient on responsible use [...] patient who appears to understand and agrees. Subjective: We have been asked to see this 62 y.o. female for postoperative pain management s/p LEFT THIGH (ABOVE KNEE AMPUTATION) INCISION AND DRAINAGE on 05/29 Reviewed ecg NAEON, no pages. On arrival, pt sitting up in bed. Pt appears well, comfortable. Pt very pleasant, talkative and cooperative throughout exam, happy with current pain regimen. Pain controlled. Pt with plans to RTOR tomorrow and possibly Sunday/Sunday next week. Tolerating diet, denies n/v. Patient educated on pain regimen, aware that oxycodone, dilaudid, methocarbamol are PRN and patient must ask for these medications when needed. Educated patient to utilize oral pain medications as first line and reserve IV pain medications for severe breakthrough pain. Pt is realistic about pain control: Not all pain will be taken away, but pain should be tolerable/manageable with current regimen. Pt instructed to have staff page APS if pain becomes uncontrolled when utilizing present regimen. Pt agreeable, denies further questions. PMH reviewed below Pain Location: LLE Aggravating Factors: Moving Sedation score: 1: Awake and alert Pain Severity: moderate. Pain well controlled Pain Quality: aching Alleviating Factors: Rest/Pain medications Pain Management: n/a The patient's medical history and physical assessment, medications, allergies, patient's current medical condition, imaging, and labs were reviewed as part of this consultation. [x] Patient's Medications have been reviewed. [x] Patient's OARRS report (PDMP) have been reviewed. Filled Written Drug QTY Days 05/25/2023 05/25/2023 Oxycodone-Acetaminophen 5-325 28.00 7 05/18/2023 05/18/2023 Oxycodone-Acetaminophen 5-325 28.00 7 05/08/2023 05/08/2023 Oxycodone-Acetaminophen 5-325 28.00 7 04/24/2023 04/24/2023 Gabapentin 300 Mg Capsule 180.00 90 02/22/2023 02/22/2023 Oxycodone-Acetaminophen 5-325 20.00 5 01/16/2023 01/16/2023 Alprazolam 0.5 Mg Tablet 30.00 30 11/27/2022 11/27/2022 Oxycodone Hcl (Ir) 10 Mg Tab 15.00 3 10/09/2022 10/05/2022 Oxycodone-Acetaminophen 5-325 56.00 28 09/18/2022 09/18/2022 Alprazolam 0.5 Mg Tablet 63.00 21 09/11/2022 09/11/2022 Oxycodone-Acetaminophen 5-325 56.00 28 06/06/2022 06/06/2022 Oxycodone-Acetaminophen 5-325 56.00 28 05/15/2022 05/08/2022 Oxycodone-Acetaminophen 5-325 56.00 28 04/10/2022 04/10/2022 Pregabalin 50 Mg Capsule 56.00 28 04/10/2022 04/10/2022 Oxycodone-Acetaminophen 5-325 56.00 28 03/09/2022 03/06/2022 Gabapentin 300 Mg Capsule 360.00 90 Social History Tobacco Use Smoking Status Former Packs/day: 0.15 Years: 5.00 Pack years: 0.75 Types: Cigarettes Quit date: 10/01/1981 Years since quittin.6 Passive exposure: Past Smokeless Tobacco Never Social History Substance and Sexual Activity Alcohol Use Not Currently Social History Substance and Sexual Activity Drug Use No Objective Findings: Height: 170.2 cm (5' 7) (chi AKA) Weight: (!) 145 kg (320 lb) BMI (Calculated): 50.11 Vital signs: Blood pressure (!) 140/80, pulse 72, temperature 36.1 C (97 F), temperature source Temporal, resp. rate 14, height 1.702 m (5' 7), weight (!) 145 kg (320 lb), SpO2 93 %, not currently . Allergies: Amlodipine, Cefepime, Clonazepam, Ketamine, Lisinopril, and Vancomycin 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) 07/27/2020 Asthma Cellulitis Constipation Depression Difficult intubation 12/04/2022 Fibromyalgia GERD (gastroesophageal reflux disease) History of transfusion Hx of right BKA (CMS/HCC) (HCC) Hypertension Morbidly obese ([facility]) 02/03/2019 BMI 50.52 On home O2 FAY treated with BiPAP Osteoarthritis Osteomyelitis of right foot ([facility]) SCHEDULED FOR THE SURGERY ON 02/11/2019 Pulmonary embolism ([facility]) Seasonal allergies Shortness of breath URSULA (stress urinary incontinence, female) Vertigo Past Surgical History: Procedure Laterality Date ABCESS DRAINAGE Right 08/07/2020 I&D of right BKA hematoma AMPUTATION Left 12/2022 ANKLE SURGERY Left 12/19/2021 ankle I and D with placement of wound vac - dr alyssa PARKS ABDOMINOPLASTY BREAST SURGERY 2006 and abdomin removal for excess COLONOSCOPY COLONOSCOPY EXTREMITY SURGERY Left 01/24/2022 debridement necrotizing fasciitis LLE, wound vac FOOT SURGERY Right 02/11/2019 FOOT SURGERY Right 2019 [place] FOOT SURGERY Right 04/08/2019 I&D right foot with antibiotic spacer FOOT SURGERY Right 04/24/2019 I&D;, external fixator FOOT SURGERY Left 08/04/2021 peroneus longus tenolysis - Dr Gamino HYSTERECTOMY 1997 INCISION AND DRAINAGE OF WOUND Left 11/21/2022 LLE INCONTINENCE SURGERY 11/15/2015 synthetic mid urethral sling,cystoscopy JOINT REPLACEMENT Left TKR LIPOMA RESECTION Right 2015 shoulder ORTHOPEDIC SURGERY [...] Right 05/06/2019 Right Below Knee Amputation (CPT 58892), #2 Excisional debridement right iliac crest (wound [...] Diagnosis History of right below knee amputation ([facility]) BKA stump complication ([facility]) 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 ([facility]) Cellulitis of lower leg Back pain Tear of peroneal tendon Depressive disorder Hemorrhage of rectum and anus HTN (hypertension) Pansystolic murmur Chest wall pain Asthma Asthma with acute exacerbation Pain from implanted hardware Obstructive sleep apnea syndrome Chronic obstructive lung disease ([facility]) Morbid obesity ([facility]) Migraine headache Vitamin D deficiency Viral upper respiratory tract infection 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[facility]) Swelling of left lower extremity Shortness of breath Seasonal allergies Superficial incisional surgical site infection Rheumatoid arthritis ([facility]) Restless legs syndrome Anxiety Arthritis of right [...] (BMI) Gastroesophageal reflux disease Hiatal hernia Callosity [facility]FP (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 antibiotics Left leg cellulitis Dehiscence of closure of skin, sequela Necrotizing soft tissue infection Infected wound Osteomyelitis ([facility]) Hematoma Cellulitis of right foot Post-op pain Osteomyelitis of right foot ([facility]) Open wound of right foot MSSA (methicillin susceptible Staphylococcus aureus) infection Right foot infection Hardware complicating wound infection (CMS/HCC) ([facility]) Right foot pain Postoperative pain Cellulitis Lymphedema Stump pain ([facility]) Abrasion of lower leg with infection, initial encounter PE (pulmonary thromboembolism) ([facility]) Surgical wound infection HLD (hyperlipidemia) Superficial venous thrombosis of left upper extremity Cellulitis of left lower extremity 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, initial encounter ([facility]) Review of Systems Constitutional: Negative for chills and fever. HENT: Negative for trouble swallowing. Eyes: Negative for visual disturbance. Respiratory: Negative for shortness of breath. Cardiovascular: Negative for chest pain. Gastrointestinal: Negative for abdominal pain, nausea and vomiting. Musculoskeletal: Positive for arthralgias and gait problem. Skin: Positive for wound (surgical). Neurological: Negative for dizziness and headaches. Psychiatric/Behavioral: Negative for agitation and confusion. The patient is not nervous/anxious. Physical Exam Vitals and nursing note reviewed. Constitutional: General: She is not in acute distress. Appearance: Normal appearance. She is obese. She is not ill-appearing, toxic- appearing or diaphoretic. HENT: Head: Normocephalic and atraumatic. Eyes: General: Vision grossly intact. Cardiovascular: Rate and Rhythm: Normal rate. Pulmonary: Effort: Pulmonary effort is normal. Abdominal: Palpations: Abdomen is soft. Musculoskeletal: General: Tenderness present. Left upper leg: Tenderness present. Comments: Veraflow vac to LLE Right Lower Extremity: Right leg is amputated below knee. Left Lower Extremity: Left leg is amputated above knee. Skin: General: Skin is warm and dry. Neurological: Mental Status: She is alert and oriented to person, place, and time. Psychiatric: Attention and Perception: Attention normal. Mood and Affect: Mood normal. Speech: Speech normal. Behavior: Behavior normal. Behavior is cooperative. PAGING: The Acute Pain Service providers are available exclusively via [employer]. APS does not utilize pagers. [employer] Work Phone: 1(495) 257-763908-29-2023 [place] [address]-29-2023 Consult note* Deanna Moser MD - 05/29/2023 5:24 PM EDTAssociated Order(s): IP CONSULT TO HOSPITALIST Images from the original note were not included. Hospital Medicine Consult Patient - Siobhan Haas, Age - 62 y.o. - 1960 Room Number - @ROOMBEDREFRESH@ Consulting - Rusty Mercado MD Primary Care Physician - Oj Maddox Date of Admission - 05/29/2023 8:37 AM Hospital Day - 0 Reason for Consult: Medical Management HISTORY OF PRESENT ILLNESS: Siobhan is a 62 y.o. female pmhx below who presents for an elective left TKA. Patient has had recurrent hematomas of the left lower extremity and wound VAC was beeping and given error message that was clogged throughout the weekend. Started on Bactrim therapy last Sunday. Denies chest pain, sob, abdominal pain, nausea, vomiting, diarrhea, constipation, fevers, or chills. Hospital service consulted for medical management. 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 ([facility]) 07/27/2020 Asthma Cellulitis Constipation Depression Difficult intubation 12/04/2022 Fibromyalgia GERD (gastroesophageal reflux disease) History of transfusion Hx of right BKA ([facility]/HCC) ([facility]) Hypertension Morbidly obese ([facility]) 02/03/2019 BMI 50.52 On home O2 FAY treated with BiPAP Osteoarthritis Osteomyelitis of right foot ([facility]) SCHEDULED FOR THE SURGERY ON 02/11/2019 Pulmonary embolism ([facility]) Seasonal allergies Shortness of breath URSULA (stress urinary incontinence, female) Vertigo Past Surgical History: Past Surgical History: Procedure Laterality Date ABCESS DRAINAGE Right 08/07/2020 I&D of right BKA hematoma AMPUTATION Left 12/2022 ANKLE SURGERY Left 12/19/2021 ankle I and D with placement of wound vac - dr alyssa PARKS ABDOMINOPLASTY BREAST SURGERY 2006 and abdomin removal for excess COLONOSCOPY COLONOSCOPY EXTREMITY SURGERY Left 01/24/2022 debridement necrotizing fasciitis LLE, wound vac FOOT SURGERY Right 02/11/2019 FOOT SURGERY Right 2019 [place] FOOT SURGERY Right 04/08/2019 I&D right foot with antibiotic spacer FOOT SURGERY Right 04/24/2019 I&D;, external fixator FOOT SURGERY Left 08/04/2021 peroneus longus tenolysis - Dr Gamino HYSTERECTOMY 1997 INCISION AND DRAINAGE OF WOUND Left 11/21/2022 LLE INCONTINENCE SURGERY 11/15/2015 synthetic mid urethral sling,cystoscopy JOINT REPLACEMENT Left TKR LIPOMA RESECTION Right 2014 shoulder ORTHOPEDIC SURGERY [...] Right 05/06/2019 Right Below Knee Amputation (CPT 62920), #2 Excisional debridement right iliac crest (wound 7 cm length, 3 cm width, 7 cm depth) TONSILLECTOMY (HISTORICAL) TOTAL KNEE ARTHROPLASTY Left 2012 ARTHROSCOPY FIRST AND KNEE REPLACED WISDOM TOOTH EXTRACTION WOUND DEBRIDEMENT Left 10/28/2021 irrigation and debridment LLE Medications: acetaminophen, 650 mg, Oral, Q4H ceFAZolin, 3,000 mg, IntraVENous, q8h enoxaparin, 30 mg, SubCUTAneous, 2 times per day gabapentin, 300 mg, Oral, BID Lidocaine, 1 patch, Topical, Daily lactated Ringer's, 50 mL/hr, Last Rate: 50 mL/hr (05/29/23 1129) PRN medications: HYDROmorphone OR HYDROmorphone, HYDROmorphone, methocarbamol, naloxone (Narcan) 0.4 mg in 0.9% sodium chloride 10 mL syringe, ondansetron ODT OR ondansetron, oxyCODONE ORoxyCODONE, oxyCODONE, polyethylene glycol (PEG) 3350 Allergies: Amlodipine, Cefepime, Clonazepam, Ketamine, Lisinopril, and Vancomycin Social History: Social History Socioeconomic History Marital status: Spouse name: Not on file Number of children: Not on file Years of education: Not on file Highest education level: Not on file Occupational History Not on file Tobacco Use Smoking status: Former Packs/day: 0.15 Years: 5.00 Pack years: 0.75 Types: Cigarettes Quit date: 10/01/1981 Years since quittin.6 Passive exposure: Past Smokeless tobacco: Never Vaping Use Vaping Use: Never used Substance and Sexual Activity Alcohol use: Not Currently Drug use: No Sexual activity: Yes Partners: Male Other Topics Concern Not on file Social History Narrative Has been in rehab facility in [place] Lives alone, son close Friends help Social Determinants of Health Financial Resource Strain: Not on file Food Insecurity: Not on file Transportation Needs: No Transportation Needs (12/04/2022) PRAPARE - Transportation Lack of Transportation (Medical): No Lack of Transportation (Non-Medical): No Physical Activity: Not on file Stress: Not on file Social Connections: Not on file Intimate Partner Violence: Not At Risk (12/04/2022) Humiliation, Afraid, Rape, and Kick questionnaire Fear of Current or Ex-Partner: No Emotionally Abused: No Physically Abused: No Sexually Abused: No Housing Stability: Unknown (12/04/2022) Housing Stability Vital Sign Unable to Pay for Housing in the Last Year: No Number of Places Lived in the Last Year: Not on file Unstable Housing in the Last Year: No Family History: @FAMXNH@ REVIEW OF SYSTEMS: 10 point ROS obtained, as per HPI, otherwise NEG Physical Exam: Vitals: BP 130/70 Pulse 85 Temp 36.7 C (98.1 F) (Temporal) Resp 17 Ht 1.702 m (5' 7) Comment: chi AKA Wt (!) 145 kg (320 lb) SpO2 95% BMI 50.12 kg/m BMI Classification: Morbidly Obese (>40.0) Pulse Ox: SpO2 Av.1 % Min: 93 % Max: 97 % Supplemental O2: O2 Flow Rate (L/min): 3 L/min General appearance: No apparent distress, appears stated age and cooperative with exam. HEENT: Normal cephalic, atraumatic without obvious deformity. [...] bowel sounds. No rebound or guarding. Musculoskeletal: Left AKA - wrapped. Right BKA Skin: Skin color, texture, turgor normal. No rashes or lesions. Neurologic: Neurovascularly intact without any focal sensory/motor deficits. Cranial nerves: II-XIIintact, grossly non-focal. Psychiatric: Alert and oriented, thought content appropriate, normal insight. LABS: Recent Results (from the past 24 hour(s)) Culture, Aerobic Bacteria with Gram Stain Collection Time: 05/29/23 12:07 PM Specimen: Thigh, Left; Body Fluid Result Value Ref Range Culture Culture in progress Gram Stain Result (A) Many Polymorphonuclear leukocytes per low power field Gram Stain Result Rare Gram positive cocci in clusters (A) Urine Culture: No results found for this or any previous visit. IMAGING: See report Assessment LLE hematomas s/p left thigh AKA I&D POD # 0 Hx of LLE OM s/p AKA (10/2022) Hx of Right foot OM s/p right BKA SONG Debility Hx of PE/DVT on Eliquis COPD on home O2 FAY/OHS on BiPAP Peripheral neuropathy Stress urinary incontinence Fibromyalgia GERD Depression Vertigo Morbid obesity - BMI 50.12 Medical Decision Making - Orthopedic surgery primary - Veraflow vac to LLE, keep until returns to OR on 05/31 for repeat I&D. NWB LLE - ID consulted for abx management - Pain control - Neurochecks -home medications as ordered -am labs, replace lytes prn -PT/OT/increase activity/pain control Anticipated Discharge - Date - TBD - Location - Skilled Facility - Pending the following - Defer to primary Total time spent (which include face to face and non face to face encounters) : 64 minutes Toxic drug monitoring/narrow therapeutic index drug monitoring : # Drug name : Lovenox # Route administered : SubQ # Method of monitoring : CBC Extended Emergency Contact Information Primary Emergency Contact: Luz Marina Mueller Relation: Child Secondary Emergency Contact: Dominga Purcell Relation: Sister -see below for additional orders; further recommendations to follow Orders Placed This Encounter Procedures Fungal stain Aerobic and Anaerobic Culture with Stain Culture, Aerobic Bacteria with Gram Stain Anaerobic culture Potassium with Mg Reflex Protime-INR Potassium CBC auto differential Basic Metabolic Panel w/ Mg Reflex Adult diet Regular Vital Signs Notify patient's primary care provider of admission Turn patient Weight-bearing restrictions Inspect skin integrity every shift; be alert for breakdown Wound Vac - Negative Pressure Wound Therapy - Nursing Instructions Full code Inpatient consult to Hospitalist-- Inpatient consult to Infectious Diseases--[facility] [place] INFECTIOUS DISEASE Inpatient consult to Anesthesiology - Acute Pain Service--ANESTHESIA - ACUTE PAIN SERVICE Initiate Oxygen Therapy Protocol Admit to inpatient Admit to inpatient Transfer patient to new unit Thank you for allowing us to participate in the care and management of this patient. Deanna Moser MD Division of Hospitalist Medicine Inpatient Medical Services/[facility] [employer] Work Phone: 1(914) 276-160808-29-2023 [facility]08-29-2023 Attending History and physical note* Rusty Mercado MD - 05/29/2023 11:29 AM EDT H&P reviewed. The patient was examined and there are no changes to the H&P. Source Note - Rusty Mercado MD - 05/21/2023 2:15 PM EDT Images from the original note were not included. [facility] [address] [facility] [address] Dept: [phone] Dept Siobhan Cochran Waldo 1960 [id number] 05/21/2023 HISTORY OF PRESENT ILLNESS: Siobhan is here for her 2 week(s) postoperative visit s/p left Incision and drainage abscess Left thigh (Wound dimensions: Length medial to lateral: 6 cm, Width anterior to posterior: 3 cm, Depth: 3 cm. Her surgery was on 05/08/23. She is here today for a wound Check- states she has had a lot of continued bleeding Siobhan reports that her pain is worse than at the surgery/last visit. Siobhan reports that her pain is unchanged since the surgery/last visit Siobhan reports that her swelling is unchanged since the last visit Siobhan had been instructed to be nonweight bearing on the left lower extremity. 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) 07/27/2020 Asthma Cellulitis Constipation Depression Difficult intubation 12/04/2022 Fibromyalgia GERD (gastroesophageal reflux disease) History of transfusion Hx of right BKA ([facility]) ([facility]) Hypertension Morbidly obese ([facility]) 02/03/2019 BMI 50.52 On home O2 FAY treated with BiPAP Osteoarthritis Osteomyelitis of right foot ([facility]) SCHEDULED FOR THE SURGERY ON 02/11/2019 Pulmonary embolism ([facility]) Seasonal allergies Shortness of breath URSULA (stress urinary incontinence, female) Vertigo Allergies Allergen Reactions Amlodipine Swelling Cefepime Itching Clonazepam Other reaction(s): Other (See Comments) made me sleep & cry Ketamine Lisinopril Swelling Vancomycin Rash PHYSICAL EXAM: This is an age appropriate appearing female who is alert and oriented x 3. The patient appears wellnourished. The patient is able to verbalize normally and seems to have a good understanding of her situation. Normocephalic, atraumatic Respiratory: No shortness of breath The left Above knee amputation is examined. Skin is ruborous in a dependent position Capillary refill in the AKA is less than 3 seconds. Siobhan is able to actively move the hip The incision(s) is/are well approximated. Serosanguinous drainage noted. 2 cm area of wet fibrous tissue in central-lateral portion of incision. No purulence noted. No surrounding erythema noted Mildly tender over plantar aspect of amputation Other findings on exam: None Ambulation: Siobhan was evaluated in a wheelchair/gurney today and I did not have her stand or walktoday RADIOGRAPHIC INTERPRETATION: No xrays were obtained or reviewed REVIEW OF RELATED PREVIOUS DOCUMENTATION: No documents related to the current problem(s) were reviewed or no documents were available for review. LABORATORY RESULT INTERPRETATION: No labs were reviewed/No labs available for review DIAGNOSIS: Diagnosis Plan 1. 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 I discussed with Siobhan that with her continued drainage we can either return to the OR to clean out the area and close the tissues again, or we can continue with dressing changes. I explained with surgery there is a chance that we will close the tissue and then have the same issue with drainage in the future, and with dressing changes there is a chance that it continues to drain and we still have to return to the OR. Siobhan would like to proceed with surgery tomorrow. Follow up for surgery, Surgery scheduled. Electronically signed by Rusty Mercado MD [facility] Department of Orthopedic surgery 05/21/2023 4:08 PM Voice recognition was used for portions of this note and although it was reviewed prior to signing some incorrect words or phrases could be present. [id number] Note* Op Note - Rusty Mercado MD - 05/29/2023 11:29 AM EDT Pre-operative Diagnosis: Left thigh abscess Post-operative Diagnosis: Same Procedure: #1 Incision and drainage abscess left thigh (Wound dimensions: Length medial to lateral:6 cm, Width anterior to posterior: 2 cm, Depth: 3 cm, #2 placement of VAC dressing left thigh woundless than 50 cm Components used: None Anesthesia: general Surgeon: Jess Assistants: Adolfo Tim Estimated Blood Loss: 50ml Complications: None Specimens: A culture was taken from the base of the wound Medications: Ancef 2 g IV Operative findings: Serous type fluid was present within the wound site at the distal end of the above-knee amputation site. No communication with the femur was found. The muscle layer overlying the femur was intact. After incision and drainage a VAC vera flow was placed. Plan is to return to the operating room on 05/31/2023 for repeat I&D. History of present illness: Siobhan is a 62 y.o. female with a history significant for previous left above-knee amputation with wound complications. She presented to the office with ongoing drainage from her most recent incision site. Based on the appearance of the wound I recommended surgical intervention. Despite the risks of surgery Siobhan consented to proceed. Operative report: I met with [...] of pain or dysfunction, wound healing complications, and late or chronic pain as a result of the surgical intervention. In addition potentially life threatening complications that can occur at the time of surgery and after surgery were discussed including but not limited to deep vein thrombosis, pulmonary embolism, myocardial infarction, stroke and . I initialed her Left lower extremity and signed her consent form. Siobhan was then brought to the operating room and placed in the supine position on the Operating Room table. Care was taken to identify and pad all bony prominences. A general anesthetic was then given by the anesthesia staff and an endotracheal tube was placed by the anesthesia staff. At all times during the operative procedure the patient's head neck and airwaywere protected by the anesthesia staff. A tourniquet was not utilized for the case. The Left lower extremity was then prepped and draped in the usual orthopedic sterile fashion. A surgical timeout was then performed with the patient's identification, the procedure to be performed being reviewed with the consent form, verification that the patient had received preoperative antibiotics, and verification of the correct surgical side. Everyone in the operating room stopped what they were doing in order to participate in the timeout. This timeout was performed by myself, the circulating room nurse and the anesthesia staff. The patient's ASA was verified by the nurse machine printer and the anesthesia staff. Fire risk was assessed. A longitudinal incision was made overlying the distal thigh wound site. Incision and drainage of the wound was performed. A large amount of serous fluid was drained from the wound site. No signs of active infection were found. A combination of sharp excision utilizing a scalpel, rongeurs and curets were used to excise any nonviable appearing skin and subcutaneous tissue. The deeper fascia overlying the muscle layer was intact. No communication with the underlying femur was found. Once an adequate debridement had been performed and I was comfortable that no additional debridement was necessary the wound was thoroughly irrigated with copious amounts of sterile saline. At this point it was decided to place a VAC VeraFlow dressing within the wound. Hill VeraFLow sponge was utilized. The skin surrounding the wound was cleaned and dried and then [place] sponges were used to further prepare the skin and then the skin was covered with plastic dressing.. The piece of sponge that had been cut for the wound was placed within the wound. Plastic dressing was then used tocover the sponge/wound. A [place] of plastic drape the size of a quarter was cut out exposing the underlying sponge material for tract pad placement. A tract pad was then placed over the exposed sponge and the tubing from the tract pad was attached to the VAC machine. The machine was started and a good seal with no leaks was present. The VeraFlow influx of fluid was then started and 35 cc of fluidfilled the wound. The VAC machine was then set for 35 cc fluid soak for 10 minutes every 3 hours. No leakage was present. Siobhan was then awakened from her anesthetic, transferred to her hospital bed and taken to the recovery room in stable medical condition. Post-operative plan: Additional Surgical Intervention: Plan to return to OR on 05/31 Weight Bearing Instructions: Siobhan will be nonweight bearing on the left lower extremity. DVT Prophylaxis: Can start/restart chemoprophylaxis from my standpoint Antibiotics: Antibiotic managment per Infectious Disease Consults: Consult Infectious Disease for antibiotic management Dressings: Leave VAC in place (DO NOT CHANGE) will change in OR Any questions please page Ortho pager (resident manager acquisition) or call my office at [phone] [id number] Note* Brief Op Note - Farrukh Tim MD - 05/29/2023 11:29 AM EDT Date: 05/29/2023 Location: [facility] OR Name: Siobhan Haas, : 1960, Diagnosis Pre-op Diagnosis * 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, initial encounter ([facility]) [S78.112A] Post-op Diagnosis * 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, initial encounter ([facility]) [S78.112A] Procedures LEFT THIGH (ABOVE KNEE AMPUTATION) INCISION AND DRAINAGE 01354 - MO I&D DEEP ABSC BURSA/HEMATOMA THIGH/KNEE REGION Surgeons * Rusty Mercado - Primary Procedure Summary Anesthesia: General ASA: III Estimated Blood Loss: Minimal Drains: * None in log * Specimens ID Source Type Tests Collected By Collected At [facility]? Priority Lab ID A Thigh, Left Body Fluid FUNGAL STAIN AEROBIC AND ANAEROBIC CULTURE WITH STAIN Rusty Mercado MD 05/29/23 1207 [id number], [id number], [id number] Description: Left thigh wound Staff: Fleet Technician: Francie Bob RN Physician Clothes Drier Assembler: CARMELA Ramos Scrub Person: Dorina Arauz RN Findings: please see full op note Complications: None; patient tolerated the procedure well. 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 05/29/2023 9:26 AM Wound Class: Class II: Clean-Contaminated Blood Products: None Prophylactic Antibiotics: Procedure appropriate prophylactic antibiotic(s) given within 1 hour of surgical incision (two hours if receiving Vancomycin or flouroquinolone) Post op Plan: RTOR for repeat I&D on 05/31 Add case pending Consent pending Veraflow vac to LLE, do not change, will change in OR Med c/s pending ID c/s pending APS c/s pending NWB LLE Neuro/skin checks Ancef x24H OR cultures pending Ortho 1 , page manager acquisition resident with questions/concerns T [id number] Note* Op Note - Rusty Mercado MD - 05/29/2023 11:29 AM EDT Pre-operative Diagnosis: Left thigh abscess Post-operative Diagnosis: Same Procedure: #1 Incision and drainage abscess left thigh (Wound dimensions: Length medial to lateral:6 cm, Width anterior to posterior: 2 cm, Depth: 3 cm, #2 placement of VAC dressing left thigh woundless than 50 cm Components used: None Anesthesia: general Surgeon: Jess Assistants: Adolfo Tim Estimated Blood Loss: 50ml Complications: None Specimens: A culture was taken from the base of the wound Medications: Ancef 2 g IV Operative findings: Serous type fluid was present within the wound site at the distal end of the above-knee amputation site. No communication with the femur was found. The muscle layer overlying the femur was intact. After incision and drainage a VAC vera flow was placed. Plan is to return to the operating room on 05/31/2023 for repeat I&D. History of present illness: Siobhan is a 62 y.o. female with a history significant for previous left above-knee amputation with wound complications. She presented to the office with ongoing drainage from her most recent incision site. Based on the appearance of the wound I recommended surgical intervention. Despite the risks of surgery Siobhan consented to proceed. Operative report: I met with [...] of pain or dysfunction, wound healing complications, and late or chronic pain as a result of the surgical intervention. In addition potentially life threatening complications that can occur at the time of surgery and after surgery were discussed including but not limited to deep vein thrombosis, pulmonary embolism, myocardial infarction, stroke and . I initialed her Left lower extremity and signed her consent form. Siobhan was then brought to the operating room and placed in the supine position on the Operating Room table. Care was taken to identify and pad all bony prominences. A general anesthetic was then given by the anesthesia staff and an endotracheal tube was placed by the anesthesia staff. At all times during the operative procedure the patient's head neck and airwaywere protected by the anesthesia staff. A tourniquet was not utilized for the case. The Left lower extremity was then prepped and draped in the usual orthopedic sterile fashion. A surgical timeout was then performed with the patient's identification, the procedure to be performed being reviewed with the consent form, verification that the patient had received preoperative antibiotics, and verification of the correct surgical side. Everyone in the operating room stopped what they were doing in order to participate in the timeout. This timeout was performed by myself, the circulating room nurse and the anesthesia staff. The patient's ASA was verified by the nurse machine printer and the anesthesia staff. Fire risk was assessed. A longitudinal incision was made overlying the distal thigh wound site. Incision and drainage of the wound was performed. A large amount of serous fluid was drained from the wound site. No signs of active infection were found. A combination of sharp excision utilizing a scalpel, rongeurs and curets were used to excise any nonviable appearing skin and subcutaneous tissue. The deeper fascia overlying the muscle layer was intact. No communication with the underlying femur was found. Once an adequate debridement had been performed and I was comfortable that no additional debridement was necessary the wound was thoroughly irrigated with copious amounts of sterile saline. At this point it was decided to place a VAC VeraFlow dressing within the wound. Hill VeraFLow sponge was utilized. The skin surrounding the wound was cleaned and dried and then [place] sponges were used to further prepare the skin and then the skin was covered with plastic dressing.. The piece of sponge that had been cut for the wound was placed within the wound. Plastic dressing was then used tocover the sponge/wound. A [place] of plastic drape the size of a quarter was cut out exposing the underlying sponge material for tract pad placement. A tract pad was then placed over the exposed sponge and the tubing from the tract pad was attached to the VAC machine. The machine was started and a good seal with no leaks was present. The VeraFlow influx of fluid was then started and 35 cc of fluidfilled the wound. The VAC machine was then set for 35 cc fluid soak for 10 minutes every 3 hours. No leakage was present. Siobhan was then awakened from her anesthetic, transferred to her hospital bed and taken to the recovery room in stable medical condition. Post-operative plan: Additional Surgical Intervention: Plan to return to OR on 05/31 Weight Bearing Instructions: Siobhan will be nonweight bearing on the left lower extremity. 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 Priority Lab ID A Thigh, Left Body Fluid FUNGAL STAIN AEROBIC AND ANAEROBIC CULTURE WITH STAIN Rusty Mercado MD 05/29/23 1207 [id number], [id number] Description: Left thigh wound Staff: Fleet Technician: Francie Bob RN Physician Clothes Drier Assembler: CARMELA Ramos Scrub Person: Dorina Arauz RN Findings: please see full op note Complications: None; patient tolerated the procedure well. 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 05/29/2023 9:26 AM Wound Class: Class II: Clean-Contaminated Blood Products: None Prophylactic Antibiotics: Procedure appropriate prophylactic antibiotic(s) given within 1 hour of surgical incision (two hours if receiving Vancomycin or flouroquinolone) Post op Plan: RTOR for repeat I&D on 05/31 Add case pending Consent pending Veraflow vac to LLE, do not change, will change in OR Med c/s pending ID c/s pending APS c/s pending NWB LLE Neuro/skin checks Ancef x24H OR cultures pending Ortho 1 , page manager acquisition resident with questions/concerns [facility] [id number] NoteH&P reviewed. The patient was examined and there are no changes to the H&P.[facility]08-29-2023 History and physical note* Rusty Mercado MD - 05/29/2023 11:29 AM EDT H&P reviewed. The patient was examined and there are no changes to the H&P. Source Note - Rusty Mercado MD - 05/21/2023 2:15 PM EDT Images from the original note were not included. [facility] [address] [place] [address] Dept: [phone] Dept Siobhan Cochran Waldo 1960 [id number] 05/21/2023 HISTORY OF PRESENT ILLNESS: Siobhan is here for her 2 week(s) postoperative visit s/p left Incision and drainage abscess Left thigh (Wound dimensions: Length medial to lateral: 6 cm, Width anterior to posterior: 3 cm, Depth: 3 cm. Her surgery was on 05/08/23. She is here today for a wound Check- states she has had a lot of continued bleeding Siobhan reports that her pain is worse than at the surgery/last visit. Siobhan reports that her pain is unchanged since the surgery/last visit Siobhan reports that her swelling is unchanged since the last visit Siobhan had been instructed to be nonweight bearing on the left lower extremity. 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 ([facility]) 07/27/2020 Asthma Cellulitis Constipation Depression Difficult intubation 12/04/2022 Fibromyalgia GERD (gastroesophageal reflux disease) History of transfusion Hx of right BKA ([facility]) ([facility]) Hypertension Morbidly obese ([facility]) 02/03/2019 BMI 50.52 On home O2 FAY treated with BiPAP Osteoarthritis Osteomyelitis of right foot ([facility]) SCHEDULED FOR THE SURGERY ON 02/11/2019 Pulmonary embolism ([facility]) Seasonal allergies Shortness of breath URSULA (stress urinary incontinence, female) Vertigo Allergies Allergen Reactions Amlodipine Swelling Cefepime Itching Clonazepam Other reaction(s): Other (See Comments) made me sleep & cry Ketamine Lisinopril Swelling Vancomycin Rash PHYSICAL EXAM: This is an age appropriate appearing female who is alert and oriented x 3. The patient appears wellnourished. The patient is able to verbalize normally and seems to have a good understanding of her situation. Normocephalic, atraumatic Respiratory: No shortness of breath The left Above knee amputation is examined. Skin is ruborous in a dependent position Capillary refill in the AKA is less than 3 seconds. Siobhan is able to actively move the hip The incision(s) is/are well approximated. Serosanguinous drainage noted. 2 cm area of wet fibrous tissue in central-lateral portion of incision. No purulence noted. No surrounding erythema noted Mildly tender over plantar aspect of amputation Other findings on exam: None Ambulation: Siobhan was evaluated in a wheelchair/gurney today and I did not have her stand or walktoday RADIOGRAPHIC INTERPRETATION: No xrays were obtained or reviewed REVIEW OF RELATED PREVIOUS DOCUMENTATION: No documents related to the current problem(s) were reviewed or no documents were available for review. LABORATORY RESULT INTERPRETATION: No labs were reviewed/No labs available for review DIAGNOSIS: Diagnosis Plan 1. 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 I discussed with Siobhan that with her continued drainage we can either return to the OR to clean out the area and close the tissues again, or we can continue with dressing changes. I explained with surgery there is a chance that we will close the tissue and then have the same issue with drainage in the future, and with dressing changes there is a chance that it continues to drain and we still have to return to the OR. Siobhan would like to proceed with surgery tomorrow. Follow up for surgery, Surgery scheduled. Electronically signed by Rusty Mercado MD [facility] Department of Orthopedic surgery 05/21/2023 4:08 PM Voice recognition was used for portions of this note and although it was reviewed prior to signing some incorrect words or phrases could be present. * CARMELA Ramos - 05/28/2023 4:09 PM EDT Images from the original note were not included. [facility] [address] [facility] [address] Dept: [phone] Dept Siobhan Haas 1960 [id number] 05/28/2023 HISTORY OF PRESENT ILLNESS: Siobhan is here for her 1 week(s) postoperative visit s/p left #1 Incision and drainage hematoma Left thigh (Wound dimensions: Length medial to lateral: 6 cm, Width anterior to posterior: 2 cm, Depth: 3 cm . Wound vac was beeping and giving error messages that it was clogged throughout the weekend Culture taken last week intra-operatively had grown bacteria, she had been started on Bactrim last Sunday Siobhan reports that her pain is worse than at the surgery/last visit Siobhan reports that her swelling is worse than at the last visit Siobhan had been instructed to be nonweight bearing on the left lower extremity. 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 ([facility]) 07/27/2020 Asthma Cellulitis Constipation Depression Difficult intubation 12/04/2022 Fibromyalgia GERD (gastroesophageal reflux disease) History of transfusion Hx of right BKA ([facility]) ([facility]) Hypertension Morbidly obese ([facility]) 02/03/2019 BMI 50.52 On home O2 FAY treated with BiPAP Osteoarthritis Osteomyelitis of right foot ([facility]) SCHEDULED FOR THE SURGERY ON 02/11/2019 Pulmonary embolism ([facility]) Seasonal allergies Shortness of breath URSULA (stress urinary incontinence, female) Vertigo Allergies Allergen Reactions Amlodipine Swelling Cefepime Itching Clonazepam Other reaction(s): Other (See Comments) made me sleep & cry Ketamine Lisinopril Swelling Vancomycin Rash PHYSICAL EXAM: This is an age appropriate appearing female who is alert and oriented x 3. The patient appears wellnourished. The patient is able to verbalize normally and seems to have a good understanding of her situation. Normocephalic, atraumatic Respiratory: No shortness of breath The left Above knee amputation is examined. Skin is ruborous in a dependent position Capillary refill in the AKA is less than 3 seconds. Siobhan is able to actively move the hip The incision(s) is/are well approximated. Serosanguinous drainage present. Skin is moist and ruborous Tenderness is present over the amputation site Other findings on exam: None Ambulation: Siobhan was evaluated in a wheelchair/gurney today and I did not have her stand or walktoday RADIOGRAPHIC INTERPRETATION: No xrays were obtained or reviewed REVIEW OF RELATED PREVIOUS DOCUMENTATION: No documents related to the current problem(s) were reviewed or no documents were available for review. LABORATORY RESULT INTERPRETATION: No labs were reviewed/No labs available for review DIAGNOSIS: Diagnosis Plan 1. 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 We discussed that the continued drainage that Siobhan is developing is most likely due to recurrenthematomas that are being broken down by the body and being expelled through the incision. We discussed that our next best option would be to return to surgery tomorrow to open the incision and begin a series of vac placements and changes to allow for the wound bed to develop healthy granulation tissue to prevent the formation of the hematomas. We will plan to do the I&D tomorrow with a spongeplacement and repeat the process on , and depending on how it is looking we may continue the washouts and new vac sponge placements on Tuesdays and of the coming weeks, or if we feel comfortable having her discharged home from the hospital we will arrange for home nursing to come out and do the sponge exchanges during the week until we are satisfied with the tissue bed. The risks of the proposed above procedure were discussed including but not limited to continued infection or worsening of the infection, the risks of reactions to medications given for surgery, the risk of blood loss, , damage to normal structures that can lead to long distance operator problems of pain and/or d ysfunction. In addition potentially life threatening complications (DVT, PE, MO, stroke,and even ) at the time of surgery and after surgery were discussed. Siobhan understands that no guarantees with regard to surgical outcome can be given and none were implied. Siobhan was given the opportunity to ask questions and consider her options. Siobhan would like to proceed with the above mentioned procedure. Follow up for Surgery. documented in this [facility]08-29-2023 Note* Perioperative Nursing Note - Anette Villalobos RN - 05/29/2023 11:26 AM EDT PRE-PROCEDURE ROUNDING COMPLETE. [id number] Note* Perioperative Nursing Note - Anette Villalobos RN - 05/29/2023 11:26 AM EDT PRE-PROCEDURE ROUNDING COMPLETE. [facility] [id number] NotePRE-PROCEDURE ROUNDING COMPLETE.[facility]2023 History and physical note* CARMELA Ramos - 05/28/2023 4:09 PM EDT Images from the original note were not included. [facility] [address] [facility] [address] Dept: [phone] Dept Siobhan Nette Haas 1960 [id number] 05/28/2023 HISTORY OF PRESENT ILLNESS: Siobhan is here for her 1 week(s) postoperative visit s/p left #1 Incision and drainage hematoma Left thigh (Wound dimensions: Length medial to lateral: 6 cm, Width anterior to posterior: 2 cm, Depth: 3 cm . Wound vac was beeping and giving error messages that it was clogged throughout the weekend Culture taken last week intra-operatively had grown bacteria, she had been started on Bactrim last Sunday Siobhan reports that her pain is worse than at the surgery/last visit Siobhan reports that her swelling is worse than at the last visit Siobhan had been instructed to be nonweight bearing on the left lower extremity. 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) 07/27/2020 Asthma Cellulitis Constipation Depression Difficult intubation 12/04/2022 Fibromyalgia GERD (gastroesophageal reflux disease) History of transfusion Hx of right BKA ([facility]) ([facility]) Hypertension Morbidly obese ([facility]) 02/03/2019 BMI 50.52 On home O2 FAY treated with BiPAP Osteoarthritis Osteomyelitis of right foot ([facility]) SCHEDULED FOR THE SURGERY ON 02/11/2019 Pulmonary embolism ([facility]) Seasonal allergies Shortness of breath URSULA (stress urinary incontinence, female) Vertigo Allergies Allergen Reactions Amlodipine Swelling Cefepime Itching Clonazepam Other reaction(s): Other (See Comments) made me sleep & cry Ketamine Lisinopril Swelling Vancomycin Rash PHYSICAL EXAM: This is an age appropriate appearing female who is alert and oriented x 3. The patient appears wellnourished. The patient is able to verbalize normally and seems to have a good understanding of her situation. Normocephalic, atraumatic Respiratory: No shortness of breath The left Above knee amputation is examined. Skin is ruborous in a dependent position Capillary refill in the AKA is less than 3 seconds. Siobhan is able to actively move the hip The incision(s) is/are well approximated. Serosanguinous drainage present. Skin is moist and ruborous Tenderness is present over the amputation site Other findings on exam: None Ambulation: Siobhan was evaluated in a wheelchair/gurney today and I did not have her stand or walktoday RADIOGRAPHIC INTERPRETATION: No xrays were obtained or reviewed REVIEW OF RELATED PREVIOUS DOCUMENTATION: No documents related to the current problem(s) were reviewed or no documents were available for review. LABORATORY RESULT INTERPRETATION: No labs were reviewed/No labs available for review DIAGNOSIS: Diagnosis Plan 1. 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 We discussed that the continued drainage that Siobhan is developing is most likely due to recurrenthematomas that are being broken down by the body and being expelled through the incision. We discussed that our next best option would be to return to surgery tomorrow to open the incision and begin a series of vac placements and changes to allow for the wound bed to develop healthy granulation tissue to prevent the formation of the hematomas. We will plan to do the I&D tomorrow with a spongeplacement and repeat the process on , and depending on how it is looking we may continue the washouts and new vac sponge placements on Tuesdays and of the coming weeks, or if we feel comfortable having her discharged home from the hospital we will arrange for home nursing to come out and do the sponge exchanges during the week until we are satisfied with the tissue bed. The risks of the proposed above procedure were discussed including but not limited to continued infection or worsening of the infection, the risks of reactions to medications given for surgery, the risk of blood loss, , damage to normal structures that can lead to mcfp problems of pain and/or d ysfunction. In addition potentially life threatening complications (DVT, PE, MO, stroke,and even ) at the time of surgery and after surgery were discussed. Siobhan understands that no guarantees with regard to surgical outcome can be given and none were implied. Siobhan was given the opportunity to ask questions and consider her options. Siobhan would like to proceed with the above mentioned procedure. Follow up for Surgery. [facility] [id number] [facility]2023 [facility]2023 Telephone encounter Note* Telephone Encounter - Cindy Tovar - 05/28/2023 9:56 AM EDT Pt leah chandler/ Jennifer [facility] [id number] Miscellaneous Notes* Telephone Encounter - Cindy Tovar - 05/28/2023 9:56 AM EDT Pt leah chandler/ Jennifer * Telephone Encounter - Jocelyn Powell MA - 05/28/2023 9:45 AM EDT Spoke with Dr. Mercado, deb to bring patient in today, but we do not have supplies to change the woundvac. Please schedule with [facility] any available time today.Tried to call patient back , but I got her vm. * Telephone Encounter - Corry Dobbs - 05/28/2023 9:42 AM EDT Name of Caller: Siobhan Contact Phone Number: [phone] Reason for Appointment: Pt states Dr Mercado told her to be seen in [place] office today, 05/02/23, for a wound vac check. No notes in chart regarding this. Please call Pt back to schedule. Office Name: Dr Mercado documented in this [facility]SM[facility] [id number] Telephone encounter Note* Telephone Encounter - Jocelyn Powell MA - 05/28/2023 9:45 AM EDT Spoke with Dr. Mercado, deb to bring patient in today, but we do not have supplies to change the woundvac. Please schedule with [facility] any available time today.Tried to call patient back , but I got her vm. [facility] [id number] Telephone encounter Note* Telephone Encounter - Corry Dobbs - 05/28/2023 9:42 AM EDT Name of Caller: Siobhan Contact Phone Number: [phone] Reason for Appointment: Pt states Dr Mercado told her to be seen in [place] office today, 05/02/23, for a wound vac check. No notes in chart regarding this. Please call Pt back to schedule. Office Name: Dr Mercado [facility] [id number] Telephone encounter Note* Telephone Encounter - CARMELA Ramos - 05/25/2023 1:21 PM EDT Spoke with patient made her aware that we are sending in an antibiotic. Patient requested refill ofpain medication. [id number] Miscellaneous Notes* Telephone Encounter - CARMELA Ramos - 05/25/2023 1:21 PM EDT Spoke with patient made her aware that we are sending in an antibiotic. Patient requested refill ofpain medication. Both medications sent to pharmacy * Telephone Encounter - CARMELA Ramos - 05/25/2023 1:16 PM EDT ----- Message from Rusty Mercado MD sent at 05/25/2023 1:12 PM EDT ----- Could we send in a script for Bactrim DS BID for 14 days, Thanks documented in this encounterSPamela [place] [id number] Telephone encounter Note* Telephone Encounter - CARMELA Ramos - 05/25/2023 1:16 PM EDT ----- Message from Rusty Mercado MD sent at 05/25/2023 1:12 PM EDT ----- Could we send in a script for Bactrim DS BID for 14 days, Thanks [id number] Note* Perioperative Nursing Note - Kristi Murillo RN - 05/22/2023 3:11 PM EDT Family/visitor at bedside with patient. [id number] Miscellaneous Notes* Perioperative Nursing Note - Kristi Murillo RN - 05/22/2023 3:11 PM EDT Family/visitor at bedside with patient. * Perioperative Nursing Note - Kristi Murillo RN - 05/22/2023 2:45 PM EDT Patient ready for discharge * Op Note - Rusty Mercado MD - 05/22/2023 11:52 AM EDT Pre-operative Diagnosis: Left thigh infected hematoma Post-operative Diagnosis: Same Procedure: #1 Incision and drainage hematoma Left thigh (Wound dimensions: Length medial to lateral: 6 cm, Width anterior to posterior: 2 cm, Depth: 3 cm Components used: None Anesthesia: general Surgeon: Jess Assistants: Adolfo Tim Estimated Blood Loss: 50ml Complications: None Specimens: A culture was taken from the base of the wound Medications: Cleocin 900 mg IV Operative findings: A large hematoma was found at the distal end of the above- knee amputation thighwound. The hematoma was completely evacuated after incision and drainage. No signs of active infection were found. A culture swab was placed in the base of the wound site. The entire wound site was thoroughly irrigated With Sterile Saline. Any Active Bleeding Was Controlled Using Both Bovie Cauteryand Spraying Thrombin [place] into the Wound Site. The Wound Was Then Primarily Closed. History of present illness: Siobhan is a 62 y.o. female with a history significant for previous left above-knee amputation with wound complications. She presented to the office with ongoing drainage from her most recent incision site. Based on the appearance of the wound I recommended surgical intervention. Despite the risks of surgery Siobhan consented to proceed. Operative report: I met with [...] of pain or dysfunction, wound healing complications, and late or chronic pain as a result of the surgical intervention. In addition potentially life threatening complications that can occur at the time of surgery and after surgery were discussed including but not limited to deep vein thrombosis, pulmonary embolism, myocardial infarction, stroke and . I initialed her Left lower extremity and signed her consent form. Siobhan was then brought to the operating room and placed in the supine position on the Operating Room table. Care was taken to identify and pad all bony prominences. A general anesthetic was then given by the anesthesia staff and an endotracheal tube was placed by the anesthesia staff. At all times during the operative procedure the patient's head neck and airwaywere protected by the anesthesia staff. A tourniquet was not utilized for the case. The Left lower extremity was then prepped and draped in the usual orthopedic sterile fashion. A surgical timeout was then performed with the patient's identification, the procedure to be performed being reviewed with the consent form, verification that the patient had received preoperative antibiotics, and verification of the correct surgical side. Everyone in the operating room stopped what they were doing in order to participate in the timeout. This timeout was performed by myself, the circulating room nurse and the anesthesia staff. The patient's ASA was verified by the nurse machine printer and the anesthesia staff. Fire risk was assessed. A longitudinal incision was made overlying the distal thigh wound site. Incision and drainage of the wound was performed. A large hematoma was drained from the wound site.No signs of active infection were found. A combination of sharp excision utilizing a scalpel, rongeurs and curets were used to excise any nonviable appearing skin and subcutaneous tissue. The deeper fascia overlying the muscle layer was intact. No communication with the underlying femur was found. Once an adequate debridement had been performed and I was comfortable that no additional debridementwas necessary the wound was thoroughly irrigated with copious amounts of sterile saline. Thrombin spray was then utilized to help stop bleeding as well as the Bovie cautery for active bleeding. The incision was then closed using 2-0 nylon suture with interrupted sutures. An incisional VAC dressing was placed. Siobhan was awakened from her anesthetic, transferred to herhospital bed and taken to recovery room in stable medical condition. documented in this [facility]08-22-2023 Note* Perioperative Nursing Note - Kristi Murillo RN - 05/22/2023 2:45 PM EDT Patient ready for discharge [facility] [id number] [facility]08-22-2023 Attending History and physical note* Rusty Mercado MD - 05/22/2023 11:52 AM EDT H&P reviewed. The patient was examined and there are no changes to the H&P. Source Note - Rusty Mercado MD - 05/21/2023 2:15 PM EDT Images from the original note were not included. [facility] [address] [facility] [address] [facility] [address] Dept: [phone] Dept Siobhan Cochran Waldo 1960 [id number] 05/21/2023 HISTORY OF PRESENT ILLNESS: Siobhan is here for her 2 week(s) postoperative visit s/p left Incision and drainage abscess Left thigh (Wound dimensions: Length medial to lateral: 6 cm, Width anterior to posterior: 3 cm, Depth: 3 cm. Her surgery was on 05/08/23. She is here today for a wound Check- states she has had a lot of continued bleeding Siobhan reports that her pain is worse than at the surgery/last visit. Siobhan reports that her pain is unchanged since the surgery/last visit Siobhan reports that her swelling is unchanged since the last visit Siobhan had been instructed to be nonweight bearing on the left lower extremity. 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 ([facility]) 07/27/2020 Asthma Cellulitis Constipation Depression Difficult intubation 12/04/2022 Fibromyalgia GERD (gastroesophageal reflux disease) History of transfusion Hx of right BKA ([facility]) ([facility]) Hypertension Morbidly obese ([facility]) 02/03/2019 BMI 50.52 On home O2 FAY treated with BiPAP Osteoarthritis Osteomyelitis of right foot ([facility]) SCHEDULED FOR THE SURGERY ON 02/11/2019 Pulmonary embolism ([facility]) Seasonal allergies Shortness of breath URSULA (stress urinary incontinence, female) Vertigo Allergies Allergen Reactions Amlodipine Swelling Cefepime Itching Clonazepam Other reaction(s): Other (See Comments) made me sleep & cry Ketamine Lisinopril Swelling Vancomycin Rash PHYSICAL EXAM: This is an age appropriate appearing female who is alert and oriented x 3. The patient appears wellnourished. The patient is able to verbalize normally and seems to have a good understanding of her situation. Normocephalic, atraumatic Respiratory: No shortness of breath The left Above knee amputation is examined. Skin is ruborous in a dependent position Capillary refill in the AKA is less than 3 seconds. Siobhan is able to actively move the hip The incision(s) is/are well approximated. Serosanguinous drainage noted. 2 cm area of wet fibrous tissue in central-lateral portion of incision. No purulence noted. No surrounding erythema noted Mildly tender over plantar aspect of amputation Other findings on exam: None Ambulation: Siobhan was evaluated in a wheelchair/gurney today and I did not have her stand or walktoday RADIOGRAPHIC INTERPRETATION: No xrays were obtained or reviewed REVIEW OF RELATED PREVIOUS DOCUMENTATION: No documents related to the current problem(s) were reviewed or no documents were available for review. LABORATORY RESULT INTERPRETATION: No labs were reviewed/No labs available for review DIAGNOSIS: Diagnosis Plan 1. 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 I discussed with Siobhan that with her continued drainage we can either return to the OR to clean out the area and close the tissues again, or we can continue with dressing changes. I explained with surgery there is a chance that we will close the tissue and then have the same issue with drainage in the future, and with dressing changes there is a chance that it continues to drain and we still have to return to the OR. Siobhan would like to proceed with surgery tomorrow. Follow up for surgery, Surgery scheduled. Electronically signed by Rusty Mercado MD [facility] Department of Orthopedic surgery 05/21/2023 4:08 PM Voice recognition was used for portions of this note and although it was reviewed prior to signing some incorrect words or phrases could be present. [facility] [id number] Note* Op Note - Rusty Mercado MD - 05/22/2023 11:52 AM EDT Pre-operative Diagnosis: Left thigh infected hematoma Post-operative Diagnosis: Same Procedure: #1 Incision and drainage hematoma Left thigh (Wound dimensions: Length medial to lateral: 6 cm, Width anterior to posterior: 2 cm, Depth: 3 cm Components used: None Anesthesia: general Surgeon: Jess Assistants: Adolfo Tim Estimated Blood Loss: 50ml Complications: None Specimens: A culture was taken from the base of the wound Medications: Cleocin 900 mg IV Operative findings: A large hematoma was found at the distal end of the above- knee amputation thighwound. The hematoma was completely evacuated after incision and drainage. No signs of active infection were found. A culture swab was placed in the base of the wound site. The entire wound site was thoroughly irrigated With Sterile Saline. Any Active Bleeding Was Controlled Using Both Bovie Cauteryand Spraying Thrombin [place] into the Wound Site. The Wound Was Then Primarily Closed. History of present illness: Siobhan is a 62 y.o. female with a history significant for previous left above-knee amputation with wound complications. She presented to the office with ongoing drainage from her most recent incision site. Based on the appearance of the wound I recommended surgical intervention. Despite the risks of surgery Siobhan consented to proceed. Operative report: I met with [...] of pain or dysfunction, wound healing complications, and late or chronic pain as a result of the surgical intervention. In addition potentially life threatening complications that can occur at the time of surgery and after surgery were discussed including but not limited to deep vein thrombosis, pulmonary embolism, myocardial infarction, stroke and . I initialed her Left lower extremity and signed her consent form. Siobhan was then brought to the operating room and placed in the supine position on the Operating Room table. Care was taken to identify and pad all bony prominences. A general anesthetic was then given by the anesthesia staff and an endotracheal tube was placed by the anesthesia staff. At all times during the operative procedure the patient's head neck and airwaywere protected by the anesthesia staff. A tourniquet was not utilized for the case. The Left lower extremity was then prepped and draped in the usual orthopedic sterile fashion. A surgical timeout was then performed with the patient's identification, the procedure to be performed being reviewed with the consent form, verification that the patient had received preoperative antibiotics, and verification of the correct surgical side. Everyone in the operating room stopped what they were doing in order to participate in the timeout. This timeout was performed by myself, the circulating room nurse and the anesthesia staff. The patient's ASA was verified by the nurse machine printer and the anesthesia staff. Fire risk was assessed. A longitudinal incision was made overlying the distal thigh wound site. Incision and drainage of the wound was performed. A large hematoma was drained from the wound site.No signs of active infection were found. A combination of sharp excision utilizing a scalpel, rongeurs and curets were used to excise any nonviable appearing skin and subcutaneous tissue. The deeper fascia overlying the muscle layer was intact. No communication with the underlying femur was found. Once an adequate debridement had been performed and I was comfortable that no additional debridementwas necessary the wound was thoroughly irrigated with copious amounts of sterile saline. Thrombin spray was then utilized to help stop bleeding as well as the Bovie cautery for active bleeding. The incision was then closed using 2-0 nylon suture with interrupted sutures. An incisional VAC dressing was placed. Siobhan was awakened from her anesthetic, transferred to herhospital bed and taken to recovery room in stable medical condition. [id number] NoteH&P reviewed. The patient was examined and there are no changes to the H&P.[facility]08-22-2023 History and physical note* Rusty Mercado MD - 05/22/2023 11:52 AM EDT H&P reviewed. The patient was examined and there are no changes to the H&P. Source Note - Rusty Mercado MD - 05/21/2023 2:15 PM EDT Images from the original note were not included. [facility] [address] [facility] [address] Dept: [phone] Dept Siobhan Haas 1960 [id number] 05/21/2023 HISTORY OF PRESENT ILLNESS: Siobhan is here for her 2 week(s) postoperative visit s/p left Incision and drainage abscess Left thigh (Wound dimensions: Length medial to lateral: 6 cm, Width anterior to posterior: 3 cm, Depth: 3 cm. Her surgery was on 05/08/23. She is here today for a wound Check- states she has had a lot of continued bleeding Siobhan reports that her pain is worse than at the surgery/last visit. Siobhan reports that her pain is unchanged since the surgery/last visit Siobhan reports that her swelling is unchanged since the last visit Siobhan had been instructed to be nonweight bearing on the left lower extremity. 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 ([facility]) 07/27/2020 Asthma Cellulitis Constipation Depression Difficult intubation 12/04/2022 Fibromyalgia GERD (gastroesophageal reflux disease) History of transfusion Hx of right BKA ([facility]) ([facility]) Hypertension Morbidly obese ([facility]) 02/03/2019 BMI 50.52 On home O2 FAY treated with BiPAP Osteoarthritis Osteomyelitis of right foot ([facility]) SCHEDULED FOR THE SURGERY ON 02/11/2019 Pulmonary embolism ([facility]) Seasonal allergies Shortness of breath URSULA (stress urinary incontinence, female) Vertigo Allergies Allergen Reactions Amlodipine Swelling Cefepime Itching Clonazepam Other reaction(s): Other (See Comments) made me sleep & cry Ketamine Lisinopril Swelling Vancomycin Rash PHYSICAL EXAM: This is an age appropriate appearing female who is alert and oriented x 3. The patient appears wellnourished. The patient is able to verbalize normally and seems to have a good understanding of her situation. Normocephalic, atraumatic Respiratory: No shortness of breath The left Above knee amputation is examined. Skin is ruborous in a dependent position Capillary refill in the AKA is less than 3 seconds. Siobhan is able to actively move the hip The incision(s) is/are well approximated. Serosanguinous drainage noted. 2 cm area of wet fibrous tissue in central-lateral portion of incision. No purulence noted. No surrounding erythema noted Mildly tender over plantar aspect of amputation Other findings on exam: None Ambulation: Siobhan was evaluated in a wheelchair/gurney today and I did not have her stand or walktoday RADIOGRAPHIC INTERPRETATION: No xrays were obtained or reviewed REVIEW OF RELATED PREVIOUS DOCUMENTATION: No documents related to the current problem(s) were reviewed or no documents were available for review. LABORATORY RESULT INTERPRETATION: No labs were reviewed/No labs available for review DIAGNOSIS: Diagnosis Plan 1. 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 I discussed with Siobhan that with her continued drainage we can either return to the OR to clean out the area and close the tissues again, or we can continue with dressing changes. I explained with surgery there is a chance that we will close the tissue and then have the same issue with drainage in the future, and with dressing changes there is a chance that it continues to drain and we still have to return to the OR. Siobhan would like to proceed with surgery tomorrow. Follow up for surgery, Surgery scheduled. Electronically signed by Rusty Mercado MD [facility] Department of Orthopedic surgery 05/21/2023 4:08 PM Voice recognition was used for portions of this note and although it was reviewed prior to signing some incorrect words or phrases could be present. documented in this [facility]08-22-2023 Hospital Discharge instructions* Discharge Instructions* CARMELA Ramos - 05/22/2023 11:37 AM EDT Images from the original note were not included. If you have any questions please call Dr Mercado's office ([phone]), all calls after 4:30 pm or anytime on Sunday or Sunday go through the answering service. The nurse at the answering service will triage your call to determine if the at night on-call physician needs to be called (this may notbe Dr Mecrado but one of his partners if Dr Mercado is not manager acquisition). Any calls regarding medication refills will be [...] or starts to feel uncomfortable call Dr Mercado's office immediately ([phone]). Leave the dressing in place, you do not need to change it unless you are instructed to do so by . If there are problems with the dressing (it feels to tight, too loose, it gets wet) call 's office. If you see any blood on the bandage reinforce it on the surface with gauze and an minal bandage and call Dr Mercado's office. Please call if you have any questions concerning your bandage/splint. If you were given a boot by our office or by an emergency department/urgent care prior to surgery, please bring it to your first post-operative appointment with you as we may transition you into the boot. ACTIVITY: The first 2 weeks after surgery is the most important time for healing. Please take this time to rest and give yourself the best chance to have a good outcome. Doing too much can affect your healing.If you are not sure how active you can be please call Dr Mercado. You should get up and move around [...] not change within [address] Mercado's office. Keep your foot/ankle elevated for comfort. Elevation is the best way to alleviate pain and decreaseyour swelling (swelling causes pain by itself). Elevation means keeping the toes at the level of your nose. If your leg is not elevated to that height then it is not truly elevated. This is Elevated This is not Elevated MEDICATIONS You were given a prescription for Percocet on 05/18/23. This cannot be refilled until 05/25/23. Please call the office if you need a refill at that time. Resume your normal blood thinners (Eliquis) WEIGHTBEARING INSTRUCTIONS Dr Mercado wants you to be nonweight bearing on the bilateral lower extremity. If you have any problems maintaining this [...] splint/bandage gets water in it, call Dr. Mercado's office ([phone]) immediately and you will beinstructed which office can see your the quickest to change your splint/bandage. * Discharge Instr - Activity* CARMELA Ramos - 05/22/2023 11:37 AM EDT Weight-bearing and post-operative activity Dr Mercado wants you to be nonweight bearing on the bilateral lower extremity. If you have any problems maintaining this weight bearing status please call the office so that appropriate instructions can be given. * Discharge Instr - Diet* CARMELA Ramos - 05/22/2023 11:37 AM EDT Good nutrition is important when [...] local grocery stores, pharmacies, and chain super-stores. If you have any questions about your diet or nutrition, call the hospital and ask for the dietitian. documented in this [facility]08-21-2023 [facility] 05-21-2023 [facility]08-21-2023 [facility] 05-21-2023 [facility]08-18-2023 History of Present illness Narrative* CARMELA Ramos - 05/18/2023 2:30 PM EDT Images from the original note were not included. [facility] [address] [place] [id number] Dept: [phone] Dept Siobhan Haas 1960 [id number] 05/18/2023 HISTORY OF PRESENT ILLNESS: Siobhan is here for her 3 day(s) postoperative visit s/p Incision and drainage abscess Left thigh (Wound dimensions: Length medial to lateral: 6 cm, Width anterior to posterior: 3 cm, Depth: 3 cm. Her surgery was on 05/08/23. She is here today for a wound Check- states she has had a lot of continued bleeding Siobhan reports that her pain is worse than at the surgery/last visit Siobhan reports that her swelling is worse than at the last visit as is her pain Siobhan had been instructed to be nonweight bearing on the bilateral lower extremity. 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 ([facility]) 07/27/2020 Asthma Cellulitis Constipation Depression Difficult intubation 12/04/2022 Fibromyalgia GERD (gastroesophageal reflux disease) History of transfusion Hx of right BKA (CMS/HCC) ([facility]) Hypertension Morbidly obese ([facility]) 02/03/2019 BMI 50.52 On home O2 FAY treated with BiPAP Osteoarthritis Osteomyelitis of right foot ([facility]) SCHEDULED FOR THE SURGERY ON 02/11/2019 Pulmonary embolism (HCC) Seasonal allergies Shortness of breath URSULA (stress urinary incontinence, female) Vertigo Allergies Allergen Reactions Amlodipine Swelling Cefepime Itching Clonazepam Other reaction(s): Other (See Comments) made me sleep & cry Ketamine Lisinopril Swelling Vancomycin Rash PHYSICAL EXAM: This is an age appropriate appearing female who is alert and oriented x 3. The patient appears wellnourished. The patient is able to verbalize normally and seems to have a good understanding of her situation. Normocephalic, atraumatic Respiratory: No shortness of breath The left Above knee amputation is examined. Skin is ruborous in a dependent position Capillary refill in the AKA is less than 3 seconds. Siobhan is able to actively move the hip The incision(s) is/are well approximated. Serosanguinous drainage noted. 2 cm area of wet fibrous tissue in central-lateral portion of incision. No purulence noted. No surrounding erythema noted Mildly tender over plantar aspect of amputation Other findings on exam: None Ambulation: Siobhan was evaluated in a wheelchair/gurney today and I did not have her stand or walktoday RADIOGRAPHIC INTERPRETATION: No xrays were obtained or reviewed REVIEW OF RELATED PREVIOUS DOCUMENTATION: No documents related to the current problem(s) were reviewed or no documents were available for review. LABORATORY RESULT INTERPRETATION: No labs were reviewed/No labs available for review DIAGNOSIS: Diagnosis Plan 1. 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, subsequent encounter ([facility]) oxyCODONE-acetaminophen (Percocet) 5-325 MG tablet MEDICAL DECISION MAKING: I had a discussion with Siobhan to make sure she has a good understanding of the diagnoses/issues that I think are present today and understands the plan moving forward. I discussed with Siobhan that the drainage is most likely the result of her body breaking down the hematoma we noted last week. We discussed I do not see any signs of infection at this time. A dry dressing was placed over the incision with calcium alginate, and we will see her back in office on Sunday to re- evaluate her progress over the weekend. Siobhan was given a refill of the percocet, she was made aware this is the only refill we can send. - oxyCODONE-acetaminophen (Percocet) 5-325 MG tablet; Take 1 tablet by mouth every 6 hours as needed for severe pain (7-10) for up to 7 days. Dispense: 28 tablet; Refill: 0 I personally reviewed Siobhan's OARRS report prior to prescribing narcotic medication. I explained to Siobhan that narcotic medications have addictive potential and should only be taken for severe pain. I explained that she should use the medication to lower her pain to a tolerable level and the goal is not taking the medication until the complete absence of pain as that is dangerous and can result in overdose and/or . I explained that narcotic medication should not be taken to help Siobhan sleep as they only only intended to treat her acute pain. In addition Siobhan needs to avoid taking other narcotics, anxiolytics or consuming alcohol or using street drugs while she is taking the narcotic because serious side effects including can occur. I discussed the side effects that canoccur when taking a narcotic alone including but not limited to: nausea, vomiting, constipation, difficulty concentrating and drowsiness. Siobhan was instructed not to drive or operate/be in the vicinity of machinery while taking the narcotic. I explained that per state law only 30 morphine equivalent doses can be prescribed in a 7 day period of time and per our office's policy we do not provide more than 2 narcotic prescriptions for any injury/surgery. I explained to Siobhan that if she has pain exceeding what I can reasonably treat I may need to refer her to a pain management physician. Follow up in about 3 days (around 05/21/2023) for Post-Op. Electronically signed by CARMELA Ramos [facility] Department of Orthopedic surgery 05/18/2023 3:45 PM Voice recognition was used for portions of this note and although it was reviewed prior to signing some incorrect words or phrases could be present. documented in this [facility]08-18-2023 Telephone encounter Note* Telephone Encounter - Shahla Galvin RN - 05/18/2023 8:45 AM EDT Images from the original note were not included. Spoke with patient. She states she is still having large amounts of thin red drainage from her incision. She states while we were talking it created a pool of blood on the floor. [id number] Miscellaneous Notes* Telephone Encounter - Shahla Galvin RN - 05/18/2023 8:45 AM EDT Images from the original note were not included. Spoke with patient. She states she is still having large amounts of thin red drainage from her incision. She states while we were talking it created a pool of blood on the floor. * Telephone Encounter - Dariana Isbell - 05/18/2023 8:21 AM EDT Name of Caller: Siobhan Relationship to Patient: Self Symptoms/Concerns: Pt is calling because she is still having bright red blood at her incision site.Please advise. Provider: Jess Practice Name: [facility] documented in this [facility] [id number] Telephone encounter Note* Telephone Encounter - Dariana Isbell - 05/18/2023 8:21 AM EDT Name of Caller: Siobhan Relationship to Patient: Self Symptoms/Concerns: Pt is calling because she is still having bright red blood at her incision site.Please advise. Provider: Jess Practice Name: [facility] [id number] History of Present illness Narrative* CARMELA Ramos - 05/11/2023 2:00 PM EDT Images from the original note were not included. [facility] [address] [place] [id number] Dept: [phone] Dept Siobhan Haas 1960 [id number] 05/11/2023 HISTORY OF PRESENT ILLNESS: Siobhan is here for her 3 day(s) postoperative visit s/p Incision and drainage abscess Left thigh (Wound dimensions: Length medial to lateral: 6 cm, Width anterior to posterior: 3 cm, Depth: 3 cm. Her surgery was on 05/08/23. She is here today for a bandage change- states she had a lot of drainage yesterday so her son changed her dressing, today has not seen much drainage. She states she doesn't feel well today and feels like she has a fever. Siobhan reports that her pain is worse than at the surgery/last visit Siobhan reports that her swelling is worse than at the last visit Siobhan had been instructed to be nonweight bearing on the bilateral lower extremity. 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 ([facility]) 07/27/2020 Asthma Cellulitis Constipation Depression Difficult intubation 12/04/2022 Fibromyalgia GERD (gastroesophageal reflux disease) History of transfusion Hx of right BKA ([facility]) ([facility]) Hypertension Morbidly obese ([facility]) 02/03/2019 BMI 50.52 On home O2 FAY treated with BiPAP Osteoarthritis Osteomyelitis of right foot ([facility]) SCHEDULED FOR THE SURGERY ON 02/11/2019 Pulmonary embolism ([facility]) Seasonal allergies Shortness of breath URSULA (stress urinary incontinence, female) Vertigo Allergies Allergen Reactions Amlodipine Swelling Cefepime Itching Clonazepam Other reaction(s): Other (See Comments) made me sleep & cry Ketamine Lisinopril Swelling Vancomycin Rash PHYSICAL EXAM: This is an age appropriate appearing female who is alert and oriented x 3. The patient appears wellnourished. The patient is able to verbalize normally and seems to have a good understanding of her situation. Temperature in office 97.8 This is an age appropriate appearing female who is alert and oriented x 3. The patient appears wellnourished. The patient is able to verbalize normally and seems to have a good understanding of her situation. Normocephalic, atraumatic Respiratory: No shortness of breath The left Above knee amputation is examined. Skin is warm and dry and ruborous in a dependent position Capillary refill in the AKA is less than 3 seconds. Siobhan is able to actively move the hip The incision(s) is/are well approximated. Scant blood noted at medial aspect of incision. Ecchymosis noted on plantar aspect most likely representing hematoma. Sutures left in place. No purulent drainage or surrounding erythema noed Tenderness is present over the amputation site Other findings on exam: None Ambulation: Siobhan was evaluated in a wheelchair/gurney today and I did not have her stand or walktoday RADIOGRAPHIC INTERPRETATION: No xrays were obtained or reviewed REVIEW OF RELATED PREVIOUS DOCUMENTATION: No documents related to the current problem(s) were reviewed or no documents were available for review. LABORATORY RESULT INTERPRETATION: No labs were reviewed/No labs available for review DIAGNOSIS: Diagnosis Plan 1. 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 I discussed with Siobhan that her incision does not appear to be draining much at this time except for the small amount of blood present. A new dry dressing was placed with ABD and tegaderm. She was instructed to contact us if there are any problems with the dressing. We discussed that I believe she has a hematoma present that is causing some of the pain and pressure feeling in the limb and that should improve with time as the body resorbs it. Siobhan will keep her appointment with me on 05/25/23 and will call if she needs a sooner appointment. We discussed that in office she is afebrile, however I strongly encouraged her to take her temperature at home and monitor for any temperatures over 100 degrees, and instructed her to go to the ED over the weekend if she begins to feel more systemically sick or if she develops a fever. Siobhan voiced her understanding and will go to the ED if she continues to feel more sick. Follow up in about 2 weeks (around 05/25/2023) for Post-Op. Electronically signed by CARMELA Ramos [facility] Department of Orthopedic surgery 05/11/2023 2:32 PM Voice recognition was used for portions of this note and although it was reviewed prior to signing some incorrect words or phrases could be present. documented in this [place] [id number] Telephone encounter Note* Telephone Encounter - Jocelyn Powell MA - 05/10/2023 12:57 PM EDT Scheduled with Jennifer [facility] [id number] Miscellaneous Notes* Telephone Encounter - Jocelyn Powell MA - 05/10/2023 12:57 PM EDT Scheduled with Jennifer * Telephone Encounter - Shahla Galvin RN - 05/10/2023 12:42 PM EDT Spoke with patient. She would like to come tomorrow in [place]. She will be there at 2pm * Telephone Encounter - CARMELA Ramos - 05/10/2023 12:15 PM EDT We can do dressing change on Sunday - I'm at [place] this Sunday if she wants to come there * Telephone Encounter - Shahla Galvin RN - 05/10/2023 9:13 AM EDT I &D abscess Left thigh (Wound dimensions: Length medial to lateral: 6 cm, Width anterior to posterior: 3 cm, Depth: 3 cm DOS: 05/08/23 Spoke with patient. States she woke up this morning with a large amount of bloody drainage on her bandages. No active bleeding noted. Offered same day appt for dressing change, she declined. Instructed her to change the dressings as she needs to when they are soiled. She states her son can help herwith it. She has an appt with Dr Morales on Sunday in [place]. She is asking for a dressing change at thattime. * Telephone Encounter - Cindy Tovar - 05/10/2023 8:58 AM EDT Name of Caller: Siobhan Relationship to Patient: Self Symptoms/Concerns: Lft above the knee amputation w/ Jess 05/08/23- pt called in w/ a lot of bleedinglast night, has since stopped but unsure of how to handle wound care. Transferred to [facility] Provider: Jess Practice Name: Ortho documented in this [facility] [id number] Telephone encounter Note* Telephone Encounter - Shahla Galvin RN - 05/10/2023 12:42 PM EDT Spoke with patient. She would like to come tomorrow in [place]. She will be there at 2pm [id number] Telephone encounter Note* Telephone Encounter - CARMELA Ramos - 05/10/2023 12:15 PM EDT We can do dressing change on Sunday - I'm at [place] this Sunday if she wants to come there [place] [id number] Telephone encounter Note* Telephone Encounter - Shahla Galvin RN - 05/10/2023 9:13 AM EDT I &D abscess Left thigh (Wound dimensions: Length medial to lateral: 6 cm, Width anterior to posterior: 3 cm, Depth: 3 cm DOS: 05/08/23 Spoke with patient. States she woke up this morning with a large amount of bloody drainage on her bandages. No active bleeding noted. Offered same day appt for dressing change, she declined. Instructed her to change the dressings as she needs to when they are soiled. She states her son can help herwith it. She has an appt with Dr Morales on Sunday in [place]. She is asking for a dressing change at thattime. [id number] Telephone encounter Note* Telephone Encounter - Cindy Tovar - 05/10/2023 8:58 AM EDT Name of Caller: Siobhan Relationship to Patient: Self Symptoms/Concerns: Lft above the knee amputation w/ Jess 05/08/23- pt called in w/ a lot of bleedinglast night, has since stopped but unsure of how to handle wound care. Transferred to [facility] Provider: Jess Practice Name: Ortho [facility] [id number] Note* Perioperative Nursing Note - Federica Ray RN - 05/08/2023 4:06 PM EDT Discharge information given to the patient. Patient and family verbalized understanding of information. All questions were answered before discharge. Patient denies dizziness or nausea. Tolerating POfluids and crackers. Vital signs are stable. [facility] [id number] Miscellaneous Notes* Perioperative Nursing Note - Federica Ray RN - 05/08/2023 4:06 PM EDT Discharge information given to the patient. Patient and family verbalized understanding of information. All questions were answered before discharge. Patient denies dizziness or nausea. Tolerating POfluids and crackers. Vital signs are stable. * Perioperative Nursing Note - Federica Ray RN - 05/08/2023 3:30 PM EDT Family/visitor at bedside with patient. * Perioperative Nursing Note - Federica Ray RN - 05/08/2023 3:08 PM EDT Patient family/visitor updated by RN at this time. * Op Note - Rusty Mercado MD - 05/08/2023 1:17 PM EDT Pre-operative Diagnosis: Left thigh abscess/open wound Post-operative Diagnosis: Same Procedure: #1 Incision and drainage abscess Left thigh (Wound dimensions: Length medial to lateral:6 cm, Width anterior to posterior: 3 cm, Depth: 3 cm Components used: None Anesthesia: general Surgeon: Jess Assistants: Adolfo Ann Estimated Blood Loss: 100ml Complications: None Specimens: None Medications: Ancef 3 g IV Operative findings: The Right thigh abscess/open wound was found to involve the skin and subcutaneous tissue with no involvement of tendon, bone or joint. After the incision and drainage was completea surgically clean wound was present and closure was performed. History of present illness: Siobhan is a 62 y.o. female with a right AKA with a chronic distal draining wound/abscess. I therefore made a recommendation for the above mentioned procedure. Despite theknown risks of the above mentioned surgery, which were discussed with Siobhan, she consented to theprocedure. Operative report: I met with Siobhan in [...] of pain or dysfunction, wound healing complications, and late or chronic pain as a result of the surgical intervention. In addition potentially life threatening complications that can occur at the time of surgery and after surgery were discussed including but not limited to deep vein thrombosis, pulmonary embolism, myocardial infarction, stroke and . I initialed her Left lower extremity and signed her consent form. Siobhan was then brought to the operating room and placed in the supine position on the Operating Room table. Care was taken to identify and pad all bony prominences. A general anesthetic was then given by the anesthesia staff and an endotracheal tube was placed by the anesthesia staff. At all times during the operative procedure the patient's head neck and airwaywere protected by the anesthesia staff. The Left lower extremity was then prepped and draped in the usual orthopedic sterile fashion. A surgical timeout was then performed with the patient's identification, the procedure to be performed being reviewed with the consent form, verification that the patient had received preoperative antibiotics, and verification of the correct surgical side. Everyone in the operating room stopped what they were doing in order to participate in the timeout. This timeout was performed by myself, the circulating room nurse and the anesthesia staff. The patient's ASA was verified by the nurse machine printer and the anesthesia staff. Fire risk was assessed. An elliptical incision was made surrounding the wound/ulcer excising all portions of the wound including skin and subcutaneous tissue. Incision and drainage of the infection was performed. The entire zone of infection was exposed. A combination of sharp excision utilizing a scalpel, rongeurs and curets were used to excise any nonviable or infected appearing skin and subcutaneous tissue. No extension to the muscle layer or femoral bone was found. Once an adequate debridement had been performed and I was comfortable that no additional debridement was necessary the wound was thoroughly irrigated with copious amounts of sterile saline. Any active bleeding was then controlled using Bovie cautery. The subcutaneous tissues were then closed utilizing 2-0 Vicryl. The skin was then closed utilizing 3-0 nylon. Dry sterile dressings were then applied. Siobhan was then awakened from her anesthetic, transferredto her hospital bed and taken to the recovery room in stable medical condition. * Perioperative Nursing Note - Anette Villalobos RN - 05/08/2023 12:30 PM EDT PRE-PROCEDURE ROUNDING COMPLETE. * Perioperative Nursing Note - Anette Villalobos RN - 05/08/2023 11:30 AM EDT PRE-PROCEDURE ROUNDING COMPLETE. documented in this [place] [id number] Note* Perioperative Nursing Note - Federica Ray RN - 05/08/2023 3:30 PM EDT Family/visitor at bedside with patient. [place] [id number] Note* Perioperative Nursing Note - Federica Ray RN - 05/08/2023 3:08 PM EDT Patient family/visitor updated by RN at this time. [place] [id number] [facility]08-08-2023 Attending History and physical note* Rusty Mercado MD - 05/08/2023 1:17 PM EDT H&P reviewed. The patient was examined and there are no changes to the H&P. Source Note - CARMELA Ramos - 05/07/2023 3:58 PM EDT Images from the original note were not included. [facility] [address] [facility] [address] Dept: [phone] Dept Siobhan Cochran Waldo 1960 [id number] 05/07/2023 HISTORY OF PRESENT ILLNESS: Siobhan is here for her 4 month(s) postoperative visit s/p left #1 Incision and drainage abscess Left thigh/AKA (Wound dimensions: Length medial to lateral: 12 cm, Width anterior to posterior: 3 cm, Depth: 4 cm . . Siobhan reports that her pain has been minimal she continues to have shoulder pain that she sees for this Siobhan reports that her swelling is unchanged since the last visit Siobhan had been instructed to be nonweight bearing on the left lower extremity. 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 ([facility]) 07/27/2020 Asthma Cellulitis Constipation Depression Difficult intubation 12/04/2022 Fibromyalgia GERD (gastroesophageal reflux disease) History of transfusion Hx of right BKA ([facility]) ([facility]) Hypertension Morbidly obese ([facility]) 02/03/2019 BMI 50.52 On home O2 FAY treated with BiPAP Osteoarthritis Osteomyelitis of right foot ([facility]) SCHEDULED FOR THE SURGERY ON 02/11/2019 Pulmonary embolism ([facility]) Seasonal allergies Shortness of breath URSULA (stress urinary incontinence, female) Vertigo Allergies Allergen Reactions Amlodipine Swelling Cefepime Itching Clonazepam Other reaction(s): Other (See Comments) made me sleep & cry Ketamine Lisinopril Swelling Vancomycin Rash PHYSICAL EXAM: This is an age appropriate appearing female who is alert and oriented x 3. The patient appears wellnourished. The patient is able to verbalize normally and seems to have a good understanding of her situation. Normocephalic, atraumatic Respiratory: No shortness of breath The left Above knee amputation is examined. Skin is warm and dry and ruborous in a dependent position Capillary refill in the AKA is less than 3 seconds. Siobhan is able to actively move the hip The incision(s) is/are partially healed with serous drainage. There is a 2 cm x 1 cm open area along the distal lateral aspect of the above-knee amputation. Serous type drainage is present with some odor. No fluctuance is noted in the surrounding soft tissues. Tenderness is present over the amputation site Other findings on exam: None Ambulation: Siobhan was evaluated in a wheelchair/gurney today and I did not have her stand or walktoday RADIOGRAPHIC INTERPRETATION: No xrays were obtained or reviewed REVIEW OF RELATED PREVIOUS DOCUMENTATION: No documents related to the current problem(s) were reviewed or no documents were available for review. LABORATORY RESULT INTERPRETATION: No labs were reviewed/No labs available for review DIAGNOSIS: Diagnosis Plan 1. 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 I had a discussion with Siobhan concerning the Left open above-knee amputation ulcer and made a recommendation for surgical intervention which would entail incision and drainage of the left above-knee amputation . The risks of the proposed above procedure were discussed including but not limited to the risks of reactions to medications given for surgery, the risk of blood loss, continued or worsening of the infection, damage to normal structures that can lead to long distance operator problems of pain and/or dysfunction,the potential for non-healing wounds/incisions that may require further operative intervention in the future including more a proximal amputation. In addition potentially life threatening complications (DVT, PE, MO, stroke,and even ) at the time of surgery and after surgery were discussed. Siobhan understands that no guarantees with regard to surgical outcome can be given and none were implied. Follow up for Surgery scheduled. [id number] Note* Op Note - Rusty Mercado MD - 05/08/2023 1:17 PM EDT Pre-operative Diagnosis: Left thigh abscess/open wound Post-operative Diagnosis: Same Procedure: #1 Incision and drainage abscess Left thigh (Wound dimensions: Length medial to lateral:6 cm, Width anterior to posterior: 3 cm, Depth: 3 cm Components used: None Anesthesia: general Surgeon: Jess Assistants: Adolfo Ann Estimated Blood Loss: 100ml Complications: None Specimens: None Medications: Ancef 3 g IV Operative findings: The Right thigh abscess/open wound was found to involve the skin and subcutaneous tissue with no involvement of tendon, bone or joint. After the incision and drainage was completea surgically clean wound was present and closure was performed. History of present illness: Siobhan is a 62 y.o. female with a right AKA with a chronic distal draining wound/abscess. I therefore made a recommendation for the above mentioned procedure. Despite theknown risks of the above mentioned surgery, which were discussed with Siobhan, she consented to theprocedure. Operative report: I met with Siobhan in [...] of pain or dysfunction, wound healing complications, and late or chronic pain as a result of the surgical intervention. In addition potentially life threatening complications that can occur at the time of surgery and after surgery were discussed including but not limited to deep vein thrombosis, pulmonary embolism, myocardial infarction, stroke and . I initialed her Left lower extremity and signed her consent form. Siobhan was then brought to the operating room and placed in the supine position on the Operating Room table. Care was taken to identify and pad all bony prominences. A general anesthetic was then given by the anesthesia staff and an endotracheal tube was placed by the anesthesia staff. At all times during the operative procedure the patient's head neck and airwaywere protected by the anesthesia staff. The Left lower extremity was then prepped and draped in the usual orthopedic sterile fashion. A surgical timeout was then performed with the patient's identification, the procedure to be performed being reviewed with the consent form, verification that the patient had received preoperative antibiotics, and verification of the correct surgical side. Everyone in the operating room stopped what they were doing in order to participate in the timeout. This timeout was performed by myself, the circulating room nurse and the anesthesia staff. The patient's ASA was verified by the nurse machine printer and the anesthesia staff. Fire risk was assessed. An elliptical incision was made surrounding the wound/ulcer excising all portions of the wound including skin and subcutaneous tissue. Incision and drainage of the infection was performed. The entire zone of infection was exposed. A combination of sharp excision utilizing a scalpel, rongeurs and curets were used to excise any nonviable or infected appearing skin and subcutaneous tissue. No extension to the muscle layer or femoral bone was found. Once an adequate debridement had been performed and I was comfortable that no additional debridement was necessary the wound was thoroughly irrigated with copious amounts of sterile saline. Any active bleeding was then controlled using Bovie cautery. The subcutaneous tissues were then closed utilizing 2-0 Vicryl. The skin was then closed utilizing 3-0 nylon. Dry sterile dressings were then applied. Siobhan was then awakened from her anesthetic, transferredto her hospital bed and taken to the recovery room in stable medical condition. [facility] [id number] NoteH&P reviewed. The patient was examined and there are no changes to the H&P.[facility]08-08-2023 History and physical note* Rusty Mercado MD - 05/08/2023 1:17 PM EDT H&P reviewed. The patient was examined and there are no changes to the H&P. Source Note - CARMELA Ramos - 05/07/2023 3:58 PM EDT Images from the original note were not included. [facility] [address] [facility] [address] Dept: [phone] Dept Siobhan Haas 1960 [id number] 05/07/2023 HISTORY OF PRESENT ILLNESS: Siobhan is here for her 4 month(s) postoperative visit s/p left #1 Incision and drainage abscess Left thigh/AKA (Wound dimensions: Length medial to lateral: 12 cm, Width anterior to posterior: 3 cm, Depth: 4 cm . . Siobhan reports that her pain has been minimal she continues to have shoulder pain that she sees for this Siobhan reports that her swelling is unchanged since the last visit Siobhan had been instructed to be nonweight bearing on the left lower extremity. 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 ([facility]) 07/27/2020 Asthma Cellulitis Constipation Depression Difficult intubation 12/04/2022 Fibromyalgia GERD (gastroesophageal reflux disease) History of transfusion Hx of right BKA ([facility]) ([facility]) Hypertension Morbidly obese ([facility]) 02/03/2019 BMI 50.52 On home O2 FAY treated with BiPAP Osteoarthritis Osteomyelitis of right foot ([facility]) SCHEDULED FOR THE SURGERY ON 02/11/2019 Pulmonary embolism ([facility]) Seasonal allergies Shortness of breath URSULA (stress urinary incontinence, female) Vertigo Allergies Allergen Reactions Amlodipine Swelling Cefepime Itching Clonazepam Other reaction(s): Other (See Comments) made me sleep & cry Ketamine Lisinopril Swelling Vancomycin Rash PHYSICAL EXAM: This is an age appropriate appearing female who is alert and oriented x 3. The patient appears wellnourished. The patient is able to verbalize normally and seems to have a good understanding of her situation. Normocephalic, atraumatic Respiratory: No shortness of breath The left Above knee amputation is examined. Skin is warm and dry and ruborous in a dependent position Capillary refill in the AKA is less than 3 seconds. Siobhan is able to actively move the hip The incision(s) is/are partially healed with serous drainage. There is a 2 cm x 1 cm open area along the distal lateral aspect of the above-knee amputation. Serous type drainage is present with some odor. No fluctuance is noted in the surrounding soft tissues. Tenderness is present over the amputation site Other findings on exam: None Ambulation: Siobhan was evaluated in a wheelchair/gurney today and I did not have her stand or walktoday RADIOGRAPHIC INTERPRETATION: No xrays were obtained or reviewed REVIEW OF RELATED PREVIOUS DOCUMENTATION: No documents related to the current problem(s) were reviewed or no documents were available for review. LABORATORY RESULT INTERPRETATION: No labs were reviewed/No labs available for review DIAGNOSIS: Diagnosis Plan 1. 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 I had a discussion with Siobhan concerning the Left open above-knee amputation ulcer and made a recommendation for surgical intervention which would entail incision and drainage of the left above-knee amputation . The risks of the proposed above procedure were discussed including but not limited to the risks of reactions to medications given for surgery, the risk of blood loss, continued or worsening of the infection, damage to normal structures that can lead to long distance operator problems of pain and/or dysfunction,the potential for non-healing wounds/incisions that may require further operative intervention in the future including more a proximal amputation. In addition potentially life threatening complications (DVT, PE, MO, stroke,and even ) at the time of surgery and after surgery were discussed. Siobhan understands that no guarantees with regard to surgical outcome can be given and none were implied. Follow up for Surgery scheduled. documented in this [facility]SMer[facility] [id number] Note* Perioperative Nursing Note - Anette Villalobos RN - 05/08/2023 12:30 PM EDT PRE-PROCEDURE ROUNDING COMPLETE. [place] [id number] NotePRE-PROCEDURE ROUNDING COMPLETE.[facility]08-08-2023 Note* Perioperative Nursing Note - Anette Villalobos RN - 05/08/2023 11:30 AM EDT PRE-PROCEDURE ROUNDING COMPLETE. [address] Hall [id number] NotePRE-PROCEDURE ROUNDING COMPLETE.[facility]08-07-2023 History and physical note* CARMELA Ramos - 05/07/2023 3:58 PM EDT Images from the original note were not included. [facility] [address] [facility] [address] Dept: [phone] Dept Siobhan Haas 1960 [id number] 05/07/2023 HISTORY OF PRESENT ILLNESS: Siobhan is here for her 4 month(s) postoperative visit s/p left #1 Incision and drainage abscess Left thigh/AKA (Wound dimensions: Length medial to lateral: 12 cm, Width anterior to posterior: 3 cm, Depth: 4 cm . . Siobhan reports that her pain has been minimal she continues to have shoulder pain that she sees for this Siobhan reports that her swelling is unchanged since the last visit Siobhan had been instructed to be nonweight bearing on the left lower extremity. 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 ([facility]) 07/27/2020 Asthma Cellulitis Constipation Depression Difficult intubation 12/04/2022 Fibromyalgia GERD (gastroesophageal reflux disease) History of transfusion Hx of right BKA ([facility]) ([facility]) Hypertension Morbidly obese ([facility]) 02/03/2019 BMI 50.52 On home O2 FAY treated with BiPAP Osteoarthritis Osteomyelitis of right foot ([facility]) SCHEDULED FOR THE SURGERY ON 02/11/2019 Pulmonary embolism ([facility]) Seasonal allergies Shortness of breath URSULA (stress urinary incontinence, female) Vertigo Allergies Allergen Reactions Amlodipine Swelling Cefepime Itching Clonazepam Other reaction(s): Other (See Comments) made me sleep & cry Ketamine Lisinopril Swelling Vancomycin Rash PHYSICAL EXAM: This is an age appropriate appearing female who is alert and oriented x 3. The patient appears wellnourished. The patient is able to verbalize normally and seems to have a good understanding of her situation. Normocephalic, atraumatic Respiratory: No shortness of breath The left Above knee amputation is examined. Skin is warm and dry and ruborous in a dependent position Capillary refill in the AKA is less than 3 seconds. Siobhan is able to actively move the hip The incision(s) is/are partially healed with serous drainage. There is a 2 cm x 1 cm open area along the distal lateral aspect of the above-knee amputation. Serous type drainage is present with some odor. No fluctuance is noted in the surrounding soft tissues. Tenderness is present over the amputation site Other findings on exam: None Ambulation: Siobhan was evaluated in a wheelchair/gurney today and I did not have her stand or walktoday RADIOGRAPHIC INTERPRETATION: No xrays were obtained or reviewed REVIEW OF RELATED PREVIOUS DOCUMENTATION: No documents related to the current problem(s) were reviewed or no documents were available for review. LABORATORY RESULT INTERPRETATION: No labs were reviewed/No labs available for review DIAGNOSIS: Diagnosis Plan 1. 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 I had a discussion with Siobhan concerning the Left open above-knee amputation ulcer and made a recommendation for surgical intervention which would entail incision and drainage of the left above-knee amputation . The risks of the proposed above procedure were discussed including but not limited to the risks of reactions to medications given for surgery, the risk of blood loss, continued or worsening of the infection, damage to normal structures that can lead to long distance operator problems of pain and/or dysfunction,the potential for non-healing wounds/incisions that may require further operative intervention in the future including more a proximal amputation. In addition potentially life threatening complications (DVT, PE, MO, stroke,and even ) at the time of surgery and after surgery were discussed. Siobhan understands that no guarantees with regard to surgical outcome can be given and none were implied. Follow up for Surgery scheduled. [facility] [employer] Phone: [phone] History and physical note* CARMELA Ramos - 05/07/2023 3:58 PM EDT Images from the original note were not included. [facility] [address] [place] [address] Dept: [phone] Dept Siobhan D Waldo 1960 [id number] 05/07/2023 HISTORY OF PRESENT ILLNESS: Siobhan is here for her 4 month(s) postoperative visit s/p left #1 Incision and drainage abscess Left thigh/AKA (Wound dimensions: Length medial to lateral: 12 cm, Width anterior to posterior: 3 cm, Depth: 4 cm . . Siobhan reports that her pain has been minimal she continues to have shoulder pain that she sees for this Siobhan reports that her swelling is unchanged since the last visit Siobhan had been instructed to be nonweight bearing on the left lower extremity. 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 ([facility]) 07/27/2020 Asthma Cellulitis Constipation Depression Difficult intubation 12/04/2022 Fibromyalgia GERD (gastroesophageal reflux disease) History of transfusion Hx of right BKA ([facility]/HCC) ([facility]) Hypertension Morbidly obese ([facility]) 02/03/2019 BMI 50.52 On home O2 FAY treated with BiPAP Osteoarthritis Osteomyelitis of right foot ([facility]) SCHEDULED FOR THE SURGERY ON 02/11/2019 Pulmonary embolism ([facility]) Seasonal allergies Shortness of breath RUSULA (stress urinary incontinence, female) Vertigo Allergies Allergen Reactions Amlodipine Swelling Cefepime Itching Clonazepam Other reaction(s): Other (See Comments) made me sleep & cry Ketamine Lisinopril Swelling Vancomycin Rash PHYSICAL EXAM: This is an age appropriate appearing female who is alert and oriented x 3. The patient appears wellnourished. The patient is able to verbalize normally and seems to have a good understanding of her situation. Normocephalic, atraumatic Respiratory: No shortness of breath The left Above knee amputation is examined. Skin is warm and dry and ruborous in a dependent position Capillary refill in the AKA is less than 3 seconds. Siobhan is able to actively move the hip The incision(s) is/are partially healed with serous drainage. There is a 2 cm x 1 cm open area along the distal lateral aspect of the above-knee amputation. Serous type drainage is present with some odor. No fluctuance is noted in the surrounding soft tissues. Tenderness is present over the amputation site Other findings on exam: None Ambulation: Siobhan was evaluated in a wheelchair/gurney today and I did not have her stand or walktoday RADIOGRAPHIC INTERPRETATION: No xrays were obtained or reviewed REVIEW OF RELATED PREVIOUS DOCUMENTATION: No documents related to the current problem(s) were reviewed or no documents were available for review. LABORATORY RESULT INTERPRETATION: No labs were reviewed/No labs available for review DIAGNOSIS: Diagnosis Plan 1. 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 I had a discussion with Siobhan concerning the Left open above-knee amputation ulcer and made a recommendation for surgical intervention which would entail incision and drainage of the left above-knee amputation . The risks of the proposed above procedure were discussed including but not limited to the risks of reactions to medications given for surgery, the risk of blood loss, continued or worsening of the infection, damage to normal structures that can lead to mcfp problems of pain and/or dysfunction,the potential for non-healing wounds/incisions that may require further operative intervention in the future including more a proximal amputation. In addition potentially life threatening complications (DVT, PE, MO, stroke,and even ) at the time of surgery and after surgery were discussed. Siobhan understands that no guarantees with regard to surgical outcome can be given and none were implied. Follow up for Surgery scheduled. documented in this [id number] [facility] 05-07-2023 [facility]08-07-2023 History of Present illness Narrative* Rusty Mercado MD - 05/07/2023 1:30 PM EDT Images from the original note were not included. [facility] [address] [facility] [address] Dept: [phone] Dept Siobhan Haas 1960 [id number] 05/07/2023 HISTORY OF PRESENT ILLNESS: Siobhan is here for her 4 month(s) postoperative visit s/p left #1 Incision and drainage abscess Left thigh/AKA (Wound dimensions: Length medial to lateral: 12 cm, Width anterior to posterior: 3 cm, Depth: 4 cm . . Siobhan reports that her pain has been minimal she continues to have shoulder pain that she sees for this Siobhan reports that her swelling is unchanged since the last visit Siobhan had been instructed to be nonweight bearing on the left lower extremity. 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 ([facility]) 07/27/2020 Asthma Cellulitis Constipation Depression Difficult intubation 12/04/2022 Fibromyalgia GERD (gastroesophageal reflux disease) History of transfusion Hx of right BKA ([facility]) ([facility]) Hypertension Morbidly obese ([facility]) 02/03/2019 BMI 50.52 On home O2 FAY treated with BiPAP Osteoarthritis Osteomyelitis of right foot ([facility]) SCHEDULED FOR THE SURGERY ON 02/11/2019 Pulmonary embolism ([facility]) Seasonal allergies Shortness of breath URSULA (stress urinary incontinence, female) Vertigo Allergies Allergen Reactions Amlodipine Swelling Cefepime Itching Clonazepam Other reaction(s): Other (See Comments) made me sleep & cry Ketamine Lisinopril Swelling Vancomycin Rash PHYSICAL EXAM: This is an age appropriate appearing female who is alert and oriented x 3. The patient appears wellnourished. The patient is able to verbalize normally and seems to have a good understanding of her situation. Normocephalic, atraumatic Respiratory: No shortness of breath The left Above knee amputation is examined. Skin is warm and dry and ruborous in a dependent position Capillary refill in the AKA is less than 3 seconds. Siobhan is able to actively move the hip The incision(s) is/are partially healed with serous drainage. There is a 2 cm x 1 cm open area along the distal lateral aspect of the above-knee amputation. Serous type drainage is present with some odor. No fluctuance is noted in the surrounding soft tissues. Tenderness is present over the amputation site Other findings on exam: None Ambulation: Siobhan was evaluated in a wheelchair/gurney today and I did not have her stand or walktoday RADIOGRAPHIC INTERPRETATION: No xrays were obtained or reviewed REVIEW OF RELATED PREVIOUS DOCUMENTATION: No documents related to the current problem(s) were reviewed or no documents were available for review. LABORATORY RESULT INTERPRETATION: No labs were reviewed/No labs available for review DIAGNOSIS: Diagnosis Plan 1. 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 I had a discussion with Siobhan concerning the Left open above-knee amputation ulcer and made a recommendation for surgical intervention which would entail incision and drainage of the left above-knee amputation . The risks of the proposed above procedure were discussed including but not limited to the risks of reactions to medications given for surgery, the risk of blood loss, continued or worsening of the infection, damage to normal structures that can lead to long distance operator problems of pain and/or dysfunction,the potential for non-healing wounds/incisions that may require further operative intervention in the future including more a proximal amputation. In addition potentially life threatening complications (DVT, PE, MO, stroke,and even ) at the time of surgery and after surgery were discussed. Siobhan understands that no guarantees with regard to surgical outcome can be given and none were implied. Follow up for Surgery scheduled. Electronically signed by Rusty Mercado MD [facility] Department of Orthopedic surgery 05/07/2023 3:16 PM Voice recognition was used for portions of this note and although it was reviewed prior to signing some incorrect words or phrases could be present. * Rusty Mercado MD - 05/07/2023 1:30 PM EDT SURGERY SCHEDULING SHEET Procedure: left thigh (AKA) incision and drainage 30335 Diagnosis: 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, initial encounter ([facility])[S78.112A] Location for Surgery: [facility] Schedule for: 1 hour Admission Type: Outpatient Medical Clearance: No Antibiotic: Ancef 3g IV Anesthesia: General Position and Table type: Supine on Regular OR table Radiology: None Implants: Equipment: curets documented in this [facility]06-23-2023 Telephone encounter Note* Telephone Encounter - Jocelyn Powell MA - 03/23/2023 8:24 AM EDT Noted. [id number] Miscellaneous Notes* Telephone Encounter - Jocelyn Powell MA - 03/23/2023 8:24 AM EDT Noted. * Telephone Encounter - Siobhan Maciel - 03/23/2023 8:14 AM EDT Pt couldn't make appt today. Will r/s later. documented in this [facility]06-23-2023 Telephone encounter Note* Telephone Encounter - Siobhan Maciel - 03/23/2023 8:14 AM EDT Pt couldn't make appt today. Will r/s later. [id number] Hospital Discharge instructions* Discharge Instructions* Dyan Garcia DO - 02/22/2023 12:12 PM EDT UROGYNECOLOGY DISCHARGE INSTRUCTIONS: INCONTINENCE & PROLAPSE SURGERIES Diet You may resume your usual diet. Activity You may return to your usual activities. You may experience fatigue and require time to rest duringthe day. Fatigue and discomfort in the area of your surgery may increase as you become more active.Pay attention to what you are feeling and rest as needed. You may go up and down stairs and ride in a car immediately after surgery. You may drive when you are no longer taking opioid pain medications and have minimal discomfort from your surgery. 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 You should not lift anything weighing more than 10-15 pounds for the next 6 weeks. (Remember that a gallon of milk weighs about 8 pounds!) When you see your physician for your post-operative evaluation, he or she will tell you if you need to refrain from heavy lifting for a longer period of time. You may shower or sponge bath for the first 4 weeks after surgery. If you have an abdominal incision you may rinse it with water; do not use anti-bacterial soap or scrub the incision. If you have an incision inside your vagina, you do not need to do any special cleaning or rinsing. Do not douche. You may take a tub bath, hot tub, or go swimming after 4 weeks unless otherwise instructed by your doctor. You should not engage in vaginal intercourse, use tampons, or douche for 6 weeks, or until your doctor tells you it is okay. You may use vaginal estrogen cream if instructed to do so by your physician. If your only procedure was a Transurethral Bulking Agent Injection (injection of material into the urethra to decrease leakage when you cough/sneeze/exercise), you may resume all of your usual activities without restrictions. If you are unsure what procedure you had and whether you need to restrictyour activities, please call our office and speak with the nurse. Exercise Walking is an excellent form of exercise after surgery; start slowly and increase your distance or speed as you feel better. Gentle stretching is encouraged, but you should avoid Pilates or strenuousyoga for 6 weeks. You may return to the gym 6 weeks after your surgery. Care at Home You may experience vaginal spotting or bleeding for 2 to 3 weeks after your surgery. This may increase slightly as you become more active. You may also experience a heavier than usual vaginal discharge for several weeks after surgery, as healing occurs. If you have bleeding heavier than a menstrualperiod or discharge that is heavy or foul-smelling, please call our office. You have been given instructions for pain relief and prescriptions for pain medication if needed. You may also use non-steroidal anti-inflammatory pain medications (ibuprofen, Advil, etc.) or acetaminophen (Tylenol). Alternating these types of medications with opioid medications can improve pain control. Please check to see if the opioid medication you were prescribed also contains acetaminophen or non-steroidal anti-inflammatory medication. If it does, you should not use additional doses of that specific medication. Constipation can occur after surgery due to changes in diet & activity and use of opioid pain medications. To help prevent constipation, you should use a stool softener (such as Colace, Dulcolax,or store brand) once or twice a day. You may also use glycerin or Dulcolax suppositories or Miralaxas needed. If you have not had a bowel movement by 3 or 4 days after surgery, please call our office. What to Watch For Please call our office at if you experience any of the following: Fever higher than 100.4?F or 38?C. Nausea and vomiting Severe pain not controlled by your pain medications Heavy vaginal bleeding or foul-smelling vaginal discharge Redness around or cloudy drainage from your incision Dizziness or fainting Chest pain or shortness of breath Inability to urinate Redness, swelling, or drainage from your incision Follow-Up If you are unable to empty your bladder, but are otherwise ready to be discharged from the hospital, you will go home with a catheter in your bladder. The nursing staff will teach you how to care forthe catheter. Before you go home, your doctor will decide when you should return to our office for removal of the catheter. The day before, you should call our office to schedule a time for the appointment. You will have a post-operative evaluation at our office about 6 weeks after your surgery. This may be scheduled in advance of your surgery, or you may call our office during the week after your surgery to schedule the appointment. If you have any problems or concerns after you are discharged from the hospital, please call our office and ask to speak with our nurse. Many issues can be handled over the telephone, however some may require a follow-up visit before your scheduled post-operative evaluation. Remember: A) DO NOT drive or operate any machinery until you are completely off narcotics. B) DO NOT drink alcoholic beverages while taking opioid pain medications. C) DO NOT make major decisions, sign contracts, etc. for 24 hours after surgery or while taking narcotic pain medications. documented in this [facility]05-25-2023 Attending History and physical note* Fabrizio Leung MD - 02/22/2023 11:32 AM EDT H&P reviewed. The patient was examined and there are no changes to the H&P. Source Note - Fabrizio Leung MD - 02/21/2023 8:52 PM EDT 59 y.o. female Patient with long history of urgency urinary incontinence Had InterStim about 2 years and 8 months ago. Did very well until recently when the device stopped working The patient noticed a recurrence of her severe overactive bladder and urgency urinary incontinence She would like to proceed with IPG with placement Past Surgical History: Procedure Laterality Date ABDOMINOPLASTY BREAST SURGERY 2006 and abdomin removal for excess COLONOSCOPY ENDOSCOPY, COLON, DIAGNOSTIC FOOT SURGERY Right 2019 IN [place] FOOT SURGERY Right 02/11/2019 FOOT SURGERY Right [...] Right 05/06/2019 Right Below Knee Amputation (CPT 22758), #2 Excisional debridement right iliac crest (wound 7 cm length, 3 cm width, 7 cm depth) TONSILLECTOMY TOTAL KNEE ARTHROPLASTY Left 2013 ARTHROSCOPY FIRST AND KNEE REPLACED Past Medical History: Diagnosis Date Asthma Cellulitis Constipation Depression Fibromyalgia GERD (gastroesophageal reflux disease) Hypertension Morbidly obese (HCC) 02/03/2019 BMI 50.52 FAY treated with BiPAP Osteoarthritis Osteomyelitis of right foot (HCC) SCHEDULED FOR THE SURGERY ON 02/11/2019 Seasonal allergies Shortness of breath URSULA (stress urinary incontinence, female) Current Outpatient Medications Medication Sig Dispense Refill oxyCODONE-acetaminophen (PERCOCET) 5-325 MG per tablet promethazine-dextromethorphan (PROMETHAZINE-DM) 6.25-15 MG/5ML syrup valsartan (DIOVAN) 160 MG tablet Take 160 mg by mouth daily loratadine (CLARITIN) 10 MG tablet Take 10 mg by mouth daily potassium chloride (KLOR-CON) 20 MEQ packet Take 20 mEq by mouth 2 times daily citalopram (CELEXA) 40 MG tablet Take 40 mg by mouth daily furosemide (LASIX) 40 MG tablet Take 40 mg by mouth 2 times daily as needed VENTOLIN HFA 108 (90 BASE) MCG/ACT inhaler INHALE 2 PUFFS PO Q 4 H PRN 11 budesonide-formoterol (SYMBICORT) 160-4.5 MCG/ACT AERO Inhale 2 puffs into the lungs cyclobenzaprine (FLEXERIL) 10 MG tablet nightly fluticasone (FLONASE) 50 MCG/ACT nasal spray 1 spray montelukast (SINGULAIR) 10 MG tablet Take 10 mg by mouth nightly omeprazole (PRILOSEC) 20 MG capsule Take by mouth pramipexole (MIRAPEX) 1.5 MG tablet nightly gabapentin (NEURONTIN) 300 MG capsule Take 1 capsule by mouth 2 times daily for 8 days. 10 capsule 0 No current facility-administered medications for this visit. OB History 2 Para 2 Term 2 AB Living 2 SAB TAB Ectopic Molar Multiple Live Births Allergies Allergen Reactions Amlodipine Swelling Physical examination: IPG site with no pain on palpation, no swelling, no bruises. No battery life PVR: 30 ml Assessment: ICD-10-CM 1. Urgency incontinence N39.41 2. Overactive bladder N32.81 I spent a total time of 30 minutes caring for this patient today. The patient was seen and examined. A chart review was performed. I have also spent time communicating results to the patient, counseling/educating the patient, documenting in the medical record and ordering the necessary procedures. I discussed the diagnosis and importance of compliance with the treatment plan. Refractory overactive bladder. Patient with InterStim placed 2 years and 8 months ago. InterStim pulse generator with no battery life. Patient would like to proceed with replacing the old IPG. She understands the risks, which include but are not limited to bleeding, infection, injury to adjacent organs, blood vessels and nerves. She is aware of the possibility of additional surgery and/or re-operation to address any complications. She is aware of the risks of anesthesia, blood clots, andpossible need for transfusion of blood products. She understands that no operation can provide a 100% guarantee, and that recurrence of her OAB is possible in the future. She understands that this operation is designed to treat OAB specifically, and does not address URSULA. The patient was made aware of conservative options for treatment and has either tried or declined them. She is aware that MRI is contraindicated with the device in place. The patient demonstrated her understanding of the above and asked appropriate questions. All her questions were answered and verbal informed consent was obtained. [employer] Phone: [phone] Note* Op Note - Fabrizio Leung MD - 02/22/2023 11:32 AM EDT PREOPERATIVE DIAGNOSIS(ES): Urge incontinence Non functional IPG InterStim implant POSTOPERATIVE DIAGNOSIS(ES): Urge incontinence Non functional IPG InterStim implant PROCEDURE(S): Removal of previous InterStim IPG implant New IPG device placement Complex analysis of neurostimulator SURGEON: Dr. Fabrizio Leung SCRAP CHARGER SURGEON: Dr. Garcia ANESTHESIA: Local monitored anesthesia care SPECIMEN(S): None ESTIMATED BLOOD LOSS: min URINE OUTPUT: N/A DRAINS: None PROCEDURE NOTE: Under satisfactory general anesthesia, with the patient in the prone position, she was prepped and draped in the usual sterile manner. A mixture of 1% lidocaine with epinephrine was injected over the left buttock incision that was previously performed. The incision was then opened with a scalpel. The pulse generator was identified and was removed. The lead was disconnected from the pulse generator. Then, a new Interstim IPG unit was attached to the electrode and then implanted into the pocket. Intraoperative functioning of the unit was confirmed using impedance testing. Impedances were confirmed to be within normal limits. The pocket was then copiously irrigated with a diluted solution of gentamicin and then closed. The subcutaneous tissue was reapproximated with 2-0 Vicryl. The skin was closed with 4-0 subcuticular stitch. Dermabond was then applied. Sponge and instrument counts were correct. The procedure was well tolerated. She was transferred to the recovery room in excellent condition. After implantation of the neurostimulator was completed, programming of the neurostimulator was performed. Complex programming was conducted. Using the external test stimulator, the patient was programmed to the lead of optimum sensation, and given instructions on utilizing the external test stimulator prior to discharge. COMPLICATIONS: None STATUS AT END [facility]GERY[id number] Op Note - Fabrizio Leung MD - 02/22/2023 11:32 AM EDT PREOPERATIVE DIAGNOSIS(ES): Urge incontinence Non functional IPG InterStim implant POSTOPERATIVE DIAGNOSIS(ES): Urge incontinence Non functional IPG InterStim implant PROCEDURE(S): Removal of previous InterStim IPG implant New IPG device placement Complex analysis of neurostimulator SURGEON: Dr. Fabrizio Leung SCRAP CHARGER SURGEON: Dr. Garcia ANESTHESIA: Local monitored anesthesia care SPECIMEN(S): None ESTIMATED BLOOD LOSS: min URINE OUTPUT: N/A DRAINS: None PROCEDURE NOTE: Under satisfactory general anesthesia, with the patient in the prone position, she was prepped and draped in the usual sterile manner. A mixture of 1% lidocaine with epinephrine was injected over the left buttock incision that was previously performed. The incision was then opened with a scalpel. The pulse generator was identified and was removed. The lead was disconnected from the pulse generator. Then, a new Interstim IPG unit was attached to the electrode and then implanted into the pocket. Intraoperative functioning of the unit was confirmed using impedance testing. Impedances were confirmed to be within normal limits. The pocket was then copiously irrigated with a diluted solution of gentamicin and then closed. The subcutaneous tissue was reapproximated with 2-0 Vicryl. The skin was closed with 4-0 subcuticular stitch. Dermabond was then applied. Sponge and instrument counts were correct. The procedure was well tolerated. She was transferred to the recovery room in excellent condition. After implantation of the neurostimulator was completed, programming of the neurostimulator was performed. Complex programming was conducted. Using the external test stimulator, the patient was programmed to the lead of optimum sensation, and given instructions on utilizing the external test stimulator prior to discharge. COMPLICATIONS: None STATUS AT END OF SURGERY: Stable [facility] [id number] History and physical note* Fabrizio Leung MD - 02/22/2023 11:32 AM EDT H&P reviewed. The patient was examined and there are no changes to the H&P. Source Note - Fabrizio Leung MD - 02/21/2023 8:52 PM EDT 59 y.o. female Patient with long history of urgency urinary incontinence Had InterStim about 2 years and 8 months ago. Did very well until recently when the device stopped working The patient noticed a recurrence of her severe overactive bladder and urgency urinary incontinence She would like to proceed with IPG with placement Past Surgical History: Procedure Laterality Date ABDOMINOPLASTY BREAST SURGERY 2006 and abdomin removal for excess COLONOSCOPY ENDOSCOPY, COLON, DIAGNOSTIC FOOT SURGERY Right 2018 IN [place] FOOT SURGERY Right 02/11/2019 FOOT SURGERY Right 04/08/2019 I&D right foot with antibiotic spacer FOOT SURGERY Right 04/24/2019 I&D;, external fixator HYSTERECTOMY 1997 INCONTINENCE SURGERY 11/15/2015 synthetic mid urethral sling,cystoscopy LIPOMA RESECTION Right 2014 shoulder ORTHOPEDIC SURGERY [...] Right 05/06/2019 Right Below Knee Amputation (CPT 13406), #2 Excisional debridement right iliac crest (wound 7 cm length, 3 cm width, 7 cm depth) TONSILLECTOMY TOTAL KNEE ARTHROPLASTY Left 2012 ARTHROSCOPY FIRST AND KNEE REPLACED Past Medical History: Diagnosis Date Asthma Cellulitis Constipation Depression Fibromyalgia GERD (gastroesophageal reflux disease) Hypertension Morbidly obese (HCC) 02/03/2019 BMI 50.52 FAY treated with BiPAP Osteoarthritis Osteomyelitis of right foot (HCC) SCHEDULED FOR THE SURGERY ON 02/11/2019 Seasonal allergies Shortness of breath URSULA (stress urinary incontinence, female) Current Outpatient Medications Medication Sig Dispense Refill oxyCODONE-acetaminophen (PERCOCET) 5-325 MG per tablet promethazine-dextromethorphan (PROMETHAZINE-DM) 6.25-15 MG/5ML syrup valsartan (DIOVAN) 160 MG tablet Take 160 mg by mouth daily loratadine (CLARITIN) 10 MG tablet Take 10 mg by mouth daily potassium chloride (KLOR-CON) 20 MEQ packet Take 20 mEq by mouth 2 times daily citalopram (CELEXA) 40 MG tablet Take 40 mg by mouth daily furosemide (LASIX) 40 MG tablet Take 40 mg by mouth 2 times daily as needed VENTOLIN HFA 108 (90 BASE) MCG/ACT inhaler INHALE 2 PUFFS PO Q 4 H PRN 11 budesonide-formoterol (SYMBICORT) 160-4.5 MCG/ACT AERO Inhale 2 puffs into the lungs cyclobenzaprine (FLEXERIL) 10 MG tablet nightly fluticasone (FLONASE) 50 MCG/ACT nasal spray 1 spray montelukast (SINGULAIR) 10 MG tablet Take 10 mg by mouth nightly omeprazole (PRILOSEC) 20 MG capsule Take by mouth pramipexole (MIRAPEX) 1.5 MG tablet nightly gabapentin (NEURONTIN) 300 MG capsule Take 1 capsule by mouth 2 times daily for 8 days. 10 capsule 0 No current facility-administered medications for this visit. OB History 2 Para 2 Term 2 AB Living 2 SAB TAB Ectopic Molar Multiple Live Births Allergies Allergen Reactions Amlodipine Swelling Physical examination: IPG site with no pain on palpation, no swelling, no bruises. No battery life PVR: 30 ml Assessment: ICD-10-CM 1. Urgency incontinence N39.41 2. Overactive bladder N32.81 I spent a total time of 30 minutes caring for this patient today. The patient was seen and examined. A chart review was performed. I have also spent time communicating results to the patient, counseling/educating the patient, documenting in the medical record and ordering the necessary procedures. I discussed the diagnosis and importance of compliance with the treatment plan. Refractory overactive bladder. Patient with InterStim placed 2 years and 8 months ago. InterStim pulse generator with no battery life. Patient would like to proceed with replacing the old IPG. She understands the risks, which include but are not limited to bleeding, infection, injury to adjacent organs, blood vessels and nerves. She is aware of the possibility of additional surgery and/or re-operation to address any complications. She is aware of the risks of anesthesia, blood clots, andpossible need for transfusion of blood products. She understands that no operation can provide a 100% guarantee, and that recurrence of her OAB is possible in the future. She understands that this operation is designed to treat OAB specifically, and does not address URSULA. The patient was made aware of conservative options for treatment and has either tried or declined them. She is aware that MRI is contraindicated with the device in place. The patient demonstrated her understanding of the above and asked appropriate questions. All her questions were answered and verbal informed consent was obtained. * Ioana Riley APRN - [place] - 02/15/2023 10:30 AM EDT Images from the original note were not included. Comprehensive PreSurgical History and Physical ? Name: Siobhan Haas : 1960 (Age-62 y.o.) Date of Service: Pt seen/examined on 02/15/2023 Procedure Information Date/Time: 02/22/23 1030 Procedure: INTERSTIM REPLACEMENT Location: [facility] OR [address] [place] [address] Operating Room Surgeons: Fabrizio Leung MD Chief Complaint: Unspecified complication of genitourinary prosthetic device, implant and graft, initial encounter ([facility]) [T83.9XXA] History Of Present Illness: 62 y.o. female Lwarence Ng we are asked to see/evaluate by for pre- operative evaluation prior to above procedure. Patient presented in a wheelchair 2/2 to B/L BLK amputee to [facility] with her friend in no acute physical distress. She reports for about 6 months she's been having urinary incontinence and was informed her battery is malfunctioning. She denies sob, cp, palpitations, abdominal discomfort, n/v/c/d fever or chills. ? Denies history of MO, CAD, CHF, TIA, CVA Past Medical History: Past Medical History: 07/27/2020: 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 ([facility]) No date: Asthma No date: Cellulitis No date: Constipation No date: Depression 12/04/2022: Difficult intubation No date: Fibromyalgia No date: GERD (gastroesophageal reflux disease) No date: History of transfusion No date: Hx of right BKA ([facility]) ([facility]) No date: Hypertension 02/03/2019: Morbidly obese ([facility]) Comment: BMI 50.52 No date: On home O2 No date: FAY treated with BiPAP No date: Osteoarthritis No date: Osteomyelitis of right foot ([facility]) Comment: SCHEDULED FOR THE SURGERY ON 02/11/2019 No date: Pulmonary embolism ([facility]) No date: Seasonal allergies No date: Shortness of breath No date: URSULA (stress urinary incontinence, female) No date: Vertigo Past Surgical History: Past Surgical History: 08/07/2020: ABCESS DRAINAGE; Right Comment: I&D of right BKA hematoma 12/2022: AMPUTATION; Left 12/19/2021: ANKLE SURGERY; Left Comment: ankle I and D with placement of wound vac - dr schaefer No date: BELT ABDOMINOPLASTY 2006: BREAST SURGERY Comment: and abdomin removal for excess No date: COLONOSCOPY No date: COLONOSCOPY 01/24/2022: EXTREMITY SURGERY; Left Comment: debridement necrotizing fasciitis LLE, wound vac 02/11/2019: FOOT SURGERY; Right 2019: FOOT SURGERY; Right Comment: IN [place] 04/08/2019: FOOT SURGERY; Right Comment: I&D right foot with antibiotic spacer 04/24/2019: FOOT SURGERY; Right Comment: I&D;, external fixator 08/04/2021: FOOT SURGERY; Left Comment: peroneus longus tenolysis - Dr Gamino 1997: HYSTERECTOMY 11/21/2022: INCISION AND DRAINAGE OF WOUND; Left Comment: LLE 11/15/2015: INCONTINENCE SURGERY Comment: synthetic mid urethral sling,cystoscopy No date: JOINT REPLACEMENT; Left Comment: TKR 2014: LIPOMA RESECTION; Right Comment: shoulder 04/01/2019: ORTHOPEDIC SURGERY; Right Comment: I&D with removal hardware and antibiotic spacer placed 11/19/2021: OTHER SURGICAL HISTORY; Left Comment: I+D L ankle 09/21/2016: OTHER SURGICAL HISTORY Comment: INTERSTIM STAGE II, COMPLEX ANALYSIS OF NEUROSTIMULATOR 03/07/2019: OTHER SURGICAL HISTORY; Right Comment: debridement of right foot 10/27/2021: OTHER SURGICAL HISTORY Comment: Irrigation and debridement of left lower extremity 07/27/2020: OTHER SURGICAL HISTORY Comment: Excision of scar tissue, neuroma RIGHT below knee amputation No date: OTHER SURGICAL HISTORY Comment: NERVE BLOCKS FROM PAIN MANAGEMENT 04/02/2019: OTHER SURGICAL HISTORY; Right Comment: R foot skin graft/flap, wound debridement/Wound vac removal 04/22/2019: OTHER SURGICAL HISTORY; Right Comment: right foot I and D 05/06/2019: OTHER SURGICAL HISTORY; Right Comment: Right Below Knee Amputation (CPT 83866), #2 Excisional debridement right iliac crest (wound 7 cm length, 3 cm width, 7 cm depth) No date: TONSILLECTOMY (HISTORICAL) 2012: TOTAL KNEE ARTHROPLASTY; Left Comment: ARTHROSCOPY FIRST AND KNEE REPLACED No date: WISDOM TOOTH EXTRACTION 10/28/2021: WOUND DEBRIDEMENT; Left Comment: irrigation and debridment LLE Medications Prior to Admission: Current Outpatient Medications on File Prior to Visit Medication Sig Dispense Refill amitriptyline (Elavil) 100 MG tablet Take 1 tablet by mouth. apixaban (Eliquis) 5 MG tablet Take 1 tablet (5 mg) by mouth 2 times daily. 60 tablet 0 Ascorbic Acid (VITAMIN C PO) Take 1 tablet by mouth every other day. Take with Iron tablets budesonide-formoterol (Symbicort) 160-4.5 MCG/ACT inhaler Inhale 2 puffs in the morning and 2 puffsin the evening. 1 each 1 citalopram (CeleXA) 20 MG tablet Take 1 tablet (20 mg) by mouth daily. Do not start before December 13, 2022. 30 tablet 0 cyclobenzaprine (Flexeril) 10 MG tablet Take 1 tablet by mouth. ferrous sulfate 325 (65 Fe) MG tablet Take 1 tablet (325 mg) by mouth daily (with breakfast). Do not start before December 13, 2022. 30 tablet 0 fluticasone (Flonase) 50 MCG/ACT nasal spray Administer into affected nostril(s). montelukast (Singulair) 10 MG tablet 10 mg. omeprazole (PriLOSEC) [address] capsule Take 40 mg by mouth daily. oxyCODONE-acetaminophen (Percocet) 5-325 MG tablet Dose = 1 tab(s), Oral, q4h, PRN for pain, # 12 tab(s), 0 Refill(s), 164.7 PARoxetine (Paxil) 30 MG tablet Take 30 mg by mouth in the morning. polyethylene glycol, PEG, 3350 (Miralax) 17 g packet Take 17 g by mouth daily. potassium chloride CR (K-Tab) 20 MEQ ER tablet TAKE 1 TABLET BY MOUTH EVERY DAY. take with a full glass OF water pramipexole (Mirapex) 1.5 MG tablet 3 mg. albuterol 108 (90 Base) MCG/ACT inhaler INHALE 2 PUFFS FOUR TIMES DAILY NEEDED FOR WHEEZING amitriptyline (Elavil) 100 MG tablet Take 1 tablet (100 mg) by mouth Nightly. 30 tablet 0 budesonide (Pulmicort) 0.25 MG/2ML nebulizer solution Take 0.25 mg by nebulization 2 times daily asneeded. cholecalciferol (Vitamin D3) 1.25 MG (89307 UT) tablet Take 1 tablet by mouth. gabapentin (Neurontin) 300 MG capsule Take 1 capsule (300 mg) by mouth Nightly. 30 capsule 0 LORazepam (Ativan) 0.5 MG tablet Take 1 tablet (0.5 mg) by mouth every 8 hours as needed for anxiety for up to 7 days. 5 tablet 0 methocarbamol (Robaxin) 750 MG tablet Take 1 tablet (750 mg) by mouth in the morning and 1 tablet (750 mg) at noon and 1 tablet (750 mg) before bedtime. Do all this for 10 days. 30 tablet 0 miconazole (Micotin) 2 % powder Apply topically 2 times daily. (Patient not taking: Reported on 02/15/2023) 15 g 0 senna-docusate sodium (Senokot-S) 8.6-50 MG tablet Take 2 tablets by mouth Nightly. (Patient not taking: Reported on 02/15/2023) 60 tablet 11 tiotropium (Spiriva) [address] 1 capsule (18 mcg) into inhaler and inhale in the morning. (Patient not taking: Reported on 01/16/2023) 30 capsule 1 umeclidinium (Incruse Ellipta) 62.5 MCG/ACT inhalation Inhale Every 24 hours. No current facility-administered medications on file prior to visit. CHRONIC NARCOTIC USE: No Allergies: Amlodipine, Cefepime, Clonazepam, Ketamine, Lisinopril, and Vancomycin Can the patient take acetaminophen: Yes Social History: TOBACCO: reports that she quit smoking about 41 years ago. Her smoking use included cigarettes. Shehas a 0.75 pack-year smoking history. She has been exposed to tobacco smoke. She has never used smokeless tobacco. ETOH: reports that she does not currently use alcohol. Social History Substance and Sexual Activity Drug Use No Family History: Family History Problem Relation Name Age of Onset Pancreatic cancer Mother Pancreatic cancer Father REVIEW OF SYSTEMS: Review of Systems Constitutional: Negative for chills and fever. HENT: Negative for congestion and trouble swallowing. Eyes: Negative for visual disturbance. Respiratory: Negative for cough and shortness of breath. Cardiovascular: Negative for chest pain, palpitations and leg swelling. Gastrointestinal: Negative for blood in stool and nausea. Genitourinary: Negative for difficulty urinating and dysuria. Skin: Negative for rash. Neurological: Negative for dizziness, syncope, light-headedness and headaches. Psychiatric/Behavioral: Negative for agitation and confusion. Physical Exam: Physical Exam Constitutional: General: She is not in acute distress. Appearance: Normal appearance. HENT: Head: Normocephalic and atraumatic. Mouth/Throat: Mouth: Mucous membranes are moist. Eyes: Extraocular Movements: Extraocular movements intact. Cardiovascular: Rate and Rhythm: Normal rate and regular rhythm. Heart sounds: Normal heart sounds. Pulmonary: Effort: Pulmonary effort is normal. No respiratory distress. Breath sounds: Normal breath sounds. Musculoskeletal: General: Normal range of motion. Cervical back: Normal range of motion and neck supple. Comments: B/L BKA Skin: General: Skin is warm and dry. Neurological: General: No focal deficit present. Mental Status: She is alert. Psychiatric: Mood and Affect: Mood normal. Behavior: Behavior normal. Vitals: Vitals Value Taken Time BP 156/80 02/15/23 1030 Temp 35.9 C (96.6 F) 02/15/23 1030 Pulse 88 02/15/23 1030 Resp 16 02/15/23 1030 SpO2 96 % 02/15/23 1030 Labs: Lab Results Component Value Date WBC 6.7 12/12/2022 HGB 7.9 (L) 12/12/2022 HCT 24.9 (L) 12/12/2022 MCV 77.9 (L) 12/12/2022 PLT 385 12/12/2022 Lab Results Component Value Date NA 138 12/12/2022 K 3.7 12/12/2022 CL 106 12/12/2022 CO2 27 12/12/2022 BUN 18 (H) 12/12/2022 CREATININE 0.53 12/12/2022 GLUCOSE 113 (H) 12/12/2022 CALCIUM 9.4 12/12/2022 PROT 6.3 12/12/2022 ALKPHOS 140 (H) 12/12/2022 AST 24 12/12/2022 ALT 18 12/12/2022 EGFR >90.0 12/12/2022 Brodie's Simple Cardiac Risk Index: BRODIE'S SIMPLE CARDIAC RISK SCORE: 0 Interpretation: 0 Points Class I 0.5% 1 Point Class II 1.3% 2 Points Class III 3.6% 3+ Points Class IV 9.1% METS >4 METS (Able to climb a flight of stairs with no chest pain or shortness of breath): Yes (patient is B/L BKA uses WC to get around. Denies breathing difficulties or cp with ADL) PAT Pain Score: Postop Pain Management Plan (Pain consult ordered?): Pain consult not indicated at this time ? EKG: on 11/2022 ECHO and EF:None on file ASSESSMENT/PLAN: Patient is considered intermediate risk for this low risk procedure/surgery () with no reducible risk factors. Based on the above evaluation, the benefits of the planned procedure likely exceed the risks. The patient is medically optimized to proceed with the planned procedure without any further ca rdiopulmonary testing. 1) Unspecified complication of genitourinary prosthetic device, implant and graft, initial encounter (HCC) [T83.9XXA] - Managed per surgery - labs on 11/2022 reviewed per PAT protocol: CMP, CBC, PT/INR, and A1c 5.4% 2) HTN- not well controlled -managed on BP Readings from Last 3 Encounters: 02/15/23 (!) 156/80 01/15/23 (!) 148/91 01/12/23 123/82 - patient encouraged to check BP at home and follow up with PCP as OP - denies sob, cp, chest tightness, fatigue or dizziness 3) Asthma - managed on Singulair, Flonase, maintenance inhalers and PRN albuterol - over one month last use of rescue inhaler - Lungs CTA. No sob or wheezing on exam 4) PE- remote - managed on Eliquis - instructed to continue taking her Eliquis dose 5) SONG - managed on FeSupp and Vit.C - denies sob, cp, fatigue, or dizziness on exam 6) GERD - managed on Prilosec - avoid triggers 7) B/L BKA- 10/2022 - uses wheel chair to get around - managed on PRN Oxycodone - Left AKA stump surgical site infection, s/p multiple I&D's, and most recently on 11/21 - follows up with Dr. Mercado. Last OV 01/15/23 8) FAY - managed on CPAP-complaint 9) Morbid Obese BMI 50.12 - encouraged healthy lifestyle modifications Visit Type: Pre-Admission Testing Visit Labs Ordered: NO - NOT INDICATED FOR THIS PROCEDURE Sleep Referral Ordered: NO - ALREADY DIAGNOSED WITH FAY AND COMPLIANT WITH CPAP Electronically signed by: Ioana Riley APRN - [place] Date: 02/15/2023 at 11:58 AM PAT Protocol referenced includes: 1. Anesthesia Lab Protocol Orders 2. Perioperative Cardiovascular Risk Assessment 3. Anesthesia Assessment 4. Pain Assessment and Acute Pain Service Consult (if appropriate) 5. Medical Clearance/Consult from Internal Medicine ([facility]) 6. Shower/Wash Order (for designated surgeries) 7. FAY Screen and Sleep Clinic Referral (if appropriate) documented in this [facility]05-25-2023 Miscellaneous Notes* Op Note - Fabrizio Leung MD - 02/22/2023 11:32 AM EDT PREOPERATIVE DIAGNOSIS(ES): Urge incontinence Non functional IPG InterStim implant POSTOPERATIVE DIAGNOSIS(ES): Urge incontinence Non functional IPG InterStim implant PROCEDURE(S): Removal of previous InterStim IPG implant New IPG device placement Complex analysis of neurostimulator SURGEON: Dr. Fabrizio Leung SCRAP CHARGER SURGEON: Dr. Garcia ANESTHESIA: Local monitored anesthesia care SPECIMEN(S): None ESTIMATED BLOOD LOSS: min URINE OUTPUT: N/A DRAINS: None PROCEDURE NOTE: Under satisfactory general anesthesia, with the patient in the prone position, she was prepped and draped in the usual sterile manner. A mixture of 1% lidocaine with epinephrine was injected over the left buttock incision that was previously performed. The incision was then opened with a scalpel. The pulse generator was identified and was removed. The lead was disconnected from the pulse generator. Then, a new Interstim IPG unit was attached to the electrode and then implanted into the pocket. Intraoperative functioning of the unit was confirmed using impedance testing. Impedances were confirmed to be within normal limits. The pocket was then copiously irrigated with a diluted solution of gentamicin and then closed. The subcutaneous tissue was reapproximated with 2-0 Vicryl. The skin was closed with 4-0 subcuticular stitch. Dermabond was then applied. Sponge and instrument counts were correct. The procedure was well tolerated. She was transferred to the recovery room in excellent condition. After implantation of the neurostimulator was completed, programming of the neurostimulator was performed. Complex programming was conducted. Using the external test stimulator, the patient was programmed to the lead of optimum sensation, and given instructions on utilizing the external test stimulator prior to discharge. COMPLICATIONS: None STATUS AT END OF SURGERY: Stable documented in this [facility]05-18-2023 History and physical note* Ioana Riley APRN - [place] - 02/15/2023 10:30 AM EDT Images from the original note were not included. Comprehensive PreSurgical History and Physical ? Name: Siobhan Haas : 1960 (Age-62 y.o.) Date of Service: Pt seen/examined on 02/15/2023 Procedure Information Date/Time: 02/22/23 1030 Procedure: INTERSTIM REPLACEMENT Location: [facility] OR Operating Room Surgeons: Fabrizio Leung MD Chief Complaint: Unspecified complication of genitourinary prosthetic device, implant and graft, initial encounter ([facility]) [T83.9XXA] History Of Present Illness: 62 y.o. female Fabrizio Leung MDwho we are asked to see/evaluate by for pre- operative evaluation prior to above procedure. Patient presented in a wheelchair / to B/L K amputee to [facility] with her friend in no acute physical distress. She reports for about 6 months she's been having urinary incontinence and was informed her battery is malfunctioning. She denies sob, cp, palpitations, abdominal discomfort, n/v/c/d fever or chills. ? Denies history of MO, CAD, CHF, TIA, CVA Past Medical History: Past Medical History: 07/27/2020: 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 ([facility]) No date: Asthma No date: Cellulitis No date: Constipation No date: Depression 12/04/2022: Difficult intubation No date: Fibromyalgia No date: GERD (gastroesophageal reflux disease) No date: History of transfusion No date: Hx of right BKA ([facility]) ([facility]) No date: Hypertension 02/03/2019: Morbidly obese ([facility]) Comment: BMI 50.52 No date: On home O2 No date: FAY treated with BiPAP No date: Osteoarthritis No date: Osteomyelitis of right foot ([facility]) Comment: SCHEDULED FOR THE SURGERY ON 02/11/2019 No date: Pulmonary embolism ([facility]) No date: Seasonal allergies No date: Shortness of breath No date: URSULA (stress urinary incontinence, female) No date: Vertigo Past Surgical History: Past Surgical History: 08/07/2020: ABCESS DRAINAGE; Right Comment: I&D of right BKA hematoma 12/2022: AMPUTATION; Left 12/19/2021: ANKLE SURGERY; Left Comment: ankle I and D with placement of wound vac - dr schaefer No date: BELT ABDOMINOPLASTY 2006: BREAST SURGERY Comment: and abdomin removal for excess No date: COLONOSCOPY No date: COLONOSCOPY 01/24/2022: EXTREMITY SURGERY; Left Comment: debridement necrotizing fasciitis LLE, wound vac 02/11/2019: FOOT SURGERY; Right 2019: FOOT SURGERY; Right Comment: IN [place] 04/08/2019: FOOT SURGERY; Right Comment: I&D right foot with antibiotic spacer 04/24/2019: FOOT SURGERY; Right Comment: I&D;, external fixator 08/04/2021: FOOT SURGERY; Left Comment: peroneus longus tenolysis - Dr Gamino 1996: HYSTERECTOMY 11/21/2022: INCISION AND DRAINAGE OF WOUND; Left Comment: LLE 11/15/2015: INCONTINENCE SURGERY Comment: synthetic mid urethral sling,cystoscopy No date: JOINT REPLACEMENT; Left Comment: TKR 2014: LIPOMA RESECTION; Right Comment: shoulder 04/01/2019: ORTHOPEDIC SURGERY; Right Comment: I&D with removal hardware and antibiotic spacer placed 11/19/2021: OTHER SURGICAL HISTORY; Left Comment: I+D L ankle 09/21/2016: OTHER SURGICAL HISTORY Comment: INTERSTIM STAGE II, COMPLEX ANALYSIS OF NEUROSTIMULATOR 03/07/2019: OTHER SURGICAL HISTORY; Right Comment: debridement of right foot 10/27/2021: OTHER SURGICAL HISTORY Comment: Irrigation and debridement of left lower extremity 07/27/2020: OTHER SURGICAL HISTORY Comment: Excision of scar tissue, neuroma RIGHT below knee amputation No date: OTHER SURGICAL HISTORY Comment: NERVE BLOCKS FROM PAIN MANAGEMENT 04/02/2019: OTHER SURGICAL HISTORY; Right Comment: R foot skin graft/flap, wound debridement/Wound vac removal 04/22/2019: OTHER SURGICAL HISTORY; Right Comment: right foot I and D 05/06/2019: OTHER SURGICAL HISTORY; Right Comment: Right Below Knee Amputation (CPT 53133), #2 Excisional debridement right iliac crest (wound 7 cm length, 3 cm width, 7 cm depth) No date: TONSILLECTOMY (HISTORICAL) 2012: TOTAL KNEE ARTHROPLASTY; Left Comment: ARTHROSCOPY FIRST AND KNEE REPLACED No date: WISDOM TOOTH EXTRACTION 10/28/2021: WOUND DEBRIDEMENT; Left Comment: irrigation and debridment LLE Medications Prior to Admission: Current Outpatient Medications on File Prior to Visit Medication Sig Dispense Refill amitriptyline (Elavil) 100 MG tablet Take 1 tablet by mouth. apixaban (Eliquis) 5 MG tablet Take 1 tablet (5 mg) by mouth 2 times daily. 60 tablet 0 Ascorbic Acid (VITAMIN C PO) Take 1 tablet by mouth every other day. Take with Iron tablets budesonide-formoterol (Symbicort) 160-4.5 MCG/ACT inhaler Inhale 2 puffs in the morning and 2 puffsin the evening. 1 each 1 citalopram (CeleXA) 20 MG tablet Take 1 tablet (20 mg) by mouth daily. Do not start before December 13, 2022. 30 tablet 0 cyclobenzaprine (Flexeril) 10 MG tablet Take 1 tablet by mouth. ferrous sulfate 325 (65 Fe) MG tablet Take 1 tablet (325 mg) by mouth daily (with breakfast). Do not start before December 13, 2022. 30 tablet 0 fluticasone (Flonase) 50 MCG/ACT nasal spray Administer into affected nostril(s). montelukast (Singulair) 10 MG tablet 10 mg. omeprazole (PriLOSEC) [address] capsule Take 40 mg by mouth daily. oxyCODONE-acetaminophen (Percocet) 5-325 MG tablet Dose = 1 tab(s), Oral, q4h, PRN for pain, # 12 tab(s), 0 Refill(s), 164.7 PARoxetine (Paxil) 30 MG tablet Take 30 mg by mouth in the morning. polyethylene glycol, PEG, 3350 (Miralax) 17 g packet Take 17 g by mouth daily. potassium chloride CR (K-Tab) 20 MEQ ER tablet TAKE 1 TABLET BY MOUTH EVERY DAY. take with a full glass OF water pramipexole (Mirapex) 1.5 MG tablet 3 mg. albuterol 108 (90 Base) MCG/ACT inhaler INHALE 2 PUFFS FOUR TIMES DAILY NEEDED FOR WHEEZING amitriptyline (Elavil) 100 MG tablet Take 1 tablet (100 mg) by mouth Nightly. 30 tablet 0 budesonide (Pulmicort) 0.25 MG/2ML nebulizer solution Take 0.25 mg by nebulization 2 times daily asneeded. cholecalciferol (Vitamin D3) 1.25 MG (11207 UT) tablet Take 1 tablet by mouth. gabapentin (Neurontin) 300 MG capsule Take 1 capsule (300 mg) by mouth Nightly. 30 capsule 0 LORazepam (Ativan) 0.5 MG tablet Take 1 tablet (0.5 mg) by mouth every 8 hours as needed for anxiety for up to 7 days. 5 tablet 0 methocarbamol (Robaxin) 750 MG tablet Take 1 tablet (750 mg) by mouth in the morning and 1 tablet (750 mg) at noon and 1 tablet (750 mg) before bedtime. Do all this for 10 days. 30 tablet 0 miconazole (Micotin) 2 % powder Apply topically 2 times daily. (Patient not taking: Reported on 02/15/2023) 15 g 0 senna-docusate sodium (Senokot-S) 8.6-50 MG tablet Take 2 tablets by mouth Nightly. (Patient not taking: Reported on 02/15/2023) 60 tablet 11 tiotropium (Spiriva) [address] 1 capsule (18 mcg) into inhaler and inhale in the morning. (Patient not taking: Reported on 01/16/2023) 30 capsule 1 umeclidinium (Incruse Ellipta) 62.5 MCG/ACT inhalation Inhale Every 24 hours. No current facility-administered medications on file prior to visit. CHRONIC NARCOTIC USE: No Allergies: Amlodipine, Cefepime, Clonazepam, Ketamine, Lisinopril, and Vancomycin Can the patient take acetaminophen: Yes Social History: TOBACCO: reports that she quit smoking about 41 years ago. Her smoking use included cigarettes. Shehas a 0.75 pack-year smoking history. She has been exposed to tobacco smoke. She has never used smokeless tobacco. ETOH: reports that she does not currently use alcohol. Social History Substance and Sexual Activity Drug Use No Family History: Family History Problem Relation Name Age of Onset Pancreatic cancer Mother Pancreatic cancer Father REVIEW OF SYSTEMS: Review of Systems Constitutional: Negative for chills and fever. HENT: Negative for congestion and trouble swallowing. Eyes: Negative for visual disturbance. Respiratory: Negative for cough and shortness of breath. Cardiovascular: Negative for chest pain, palpitations and leg swelling. Gastrointestinal: Negative for blood in stool and nausea. Genitourinary: Negative for difficulty urinating and dysuria. Skin: Negative for rash. Neurological: Negative for dizziness, syncope, light-headedness and headaches. Psychiatric/Behavioral: Negative for agitation and confusion. Physical Exam: Physical Exam Constitutional: General: She is not in acute distress. Appearance: Normal appearance. HENT: Head: Normocephalic and atraumatic. Mouth/Throat: Mouth: Mucous membranes are moist. Eyes: Extraocular Movements: Extraocular movements intact. Cardiovascular: Rate and Rhythm: Normal rate and regular rhythm. Heart sounds: Normal heart sounds. Pulmonary: Effort: Pulmonary effort is normal. No respiratory distress. Breath sounds: Normal breath sounds. Musculoskeletal: General: Normal range of motion. Cervical back: Normal range of motion and neck supple. Comments: B/L BKA Skin: General: Skin is warm and dry. Neurological: General: No focal deficit present. Mental Status: She is alert. Psychiatric: Mood and Affect: Mood normal. Behavior: Behavior normal. Vitals: Vitals Value Taken Time BP 156/80 02/15/23 1030 Temp 35.9 C (96.6 F) 02/15/23 1030 Pulse 88 02/15/23 1030 Resp 16 02/15/23 1030 SpO2 96 % 02/15/23 1030 Labs: Lab Results Component Value Date WBC 6.7 12/12/2022 HGB 7.9 (L) 12/12/2022 HCT 24.9 (L) 12/12/2022 MCV 77.9 (L) 12/12/2022 PLT 385 12/12/2022 Lab Results Component Value Date NA 138 12/12/2022 K 3.7 12/12/2022 CL 106 12/12/2022 CO2 27 12/12/2022 BUN 18 (H) 12/12/2022 CREATININE 0.53 12/12/2022 GLUCOSE 113 (H) 12/12/2022 CALCIUM 9.4 12/12/2022 PROT 6.3 12/12/2022 ALKPHOS 140 (H) 12/12/2022 AST 24 12/12/2022 ALT 18 12/12/2022 EGFR >90.0 12/12/2022 Brodie's Simple Cardiac Risk Index: BRODIE'S SIMPLE CARDIAC RISK SCORE: 0 Interpretation: 0 Points Class I 0.5% 1 Point Class II 1.3% 2 Points Class III 3.6% 3+ Points Class IV 9.1% METS >4 METS (Able to climb a flight of stairs with no chest pain or shortness of breath): Yes (patient is B/L BKA uses WC to get around. Denies breathing difficulties or cp with ADL) PAT Pain Score: Postop Pain Management Plan (Pain consult ordered?): Pain consult not indicated at this time ? EKG: on 11/2022 ECHO and EF:None on file ASSESSMENT/PLAN: Patient is considered intermediate risk for this low risk procedure/surgery () with no reducible risk factors. Based on the above evaluation, the benefits of the planned procedure likely exceed the risks. The patient is medically optimized to proceed with the planned procedure without any further ca rdiopulmonary testing. 1) Unspecified complication of genitourinary prosthetic device, implant and graft, initial encounter (HCC) [T83.9XXA] - Managed per surgery - labs on 11/2022 reviewed per PAT protocol: CMP, CBC, PT/INR, and A1c 5.4% 2) HTN- not well controlled -managed on BP Readings from Last 3 Encounters: 02/15/23 (!) 156/80 01/15/23 (!) 148/91 01/12/23 123/82 - patient encouraged to check BP at home and follow up with PCP as OP - denies sob, cp, chest tightness, fatigue or dizziness 3) Asthma - managed on Singulair, Flonase, maintenance inhalers and PRN albuterol - over one month last use of rescue inhaler - Lungs CTA. No sob or wheezing on exam 4) PE- remote - managed on Eliquis - instructed to continue taking her Eliquis dose 5) SONG - managed on FeSupp and Vit.C - denies sob, cp, fatigue, or dizziness on exam 6) GERD - managed on Prilosec - avoid triggers 7) B/L BKA- 10/2022 - uses wheel chair to get around - managed on PRN Oxycodone - Left AKA stump surgical site infection, s/p multiple I&D's, and most recently on 11/21 - follows up with Dr. Mercado. Last OV 01/15/23 8) FAY - managed on CPAP-complaint 9) Morbid Obese BMI 50.12 - encouraged healthy lifestyle modifications Visit Type: Pre-Admission Testing Visit Labs Ordered: NO - NOT INDICATED FOR THIS PROCEDURE Sleep Referral Ordered: NO - ALREADY DIAGNOSED WITH FAY AND COMPLIANT WITH CPAP Electronically signed by: MITCH Martin CNP Date: 02/15/2023 at 11:58 AM PAT Protocol referenced includes: 1. Anesthesia Lab Protocol Orders 2. Perioperative Cardiovascular Risk Assessment 3. Anesthesia Assessment 4. Pain Assessment and Acute Pain Service Consult (if appropriate) 5. Medical Clearance/Consult from Internal Medicine (IMS) 6. Shower/Wash Order (for designated surgeries) 7. FAY Screen and Sleep Clinic Referral (if appropriate) [facility] Work Phone: [phone] Telephone encounter Note* Telephone Encounter - Kayden Garcia - 02/14/2023 11:36 AM EDT Name of Caller: Siobhan Contact Reason for Call: Patient states she feels the injections are going to work for her - however she would like to know if wearing a sling would be a bad thing - if she keeps her arm in a certain position the pain isn't there anymore and that hasn't been the case for her in 6 weeks, Patient doesn't want to hinder anything though that could make it worse or just not improve Office Name: [facility]; Ortho [facility] [id number] Miscellaneous Notes* Telephone Encounter - Kayden Garcia - 02/14/2023 11:36 AM EDT Name of Caller: Siobhan Contact Reason for Call: Patient states she feels the injections are going to work for her - however she would like to know if wearing a sling would be a bad thing - if she keeps her arm in a certain position the pain isn't there anymore and that hasn't been the case for her in 6 weeks, Patient doesn't want to hinder anything though that could make it worse or just not improve Office Name: [facility]; Ortho * Telephone Encounter - Shahla Galvin RN - 01/19/2023 9:07 AM EDT Left shoulder pain with a history of osteoarthritis, Subacromial injection 01/15/23 Spoke with patient. She states she is still having severe pain in her left shoulder. She is asking if there is anything else she can do. We reviewed Dr Morales's plan from his last note: She can use ice or Tylenol for pain or discomfort, follow-up in 2 weeks and consider a glenohumeraljoint injection with ultrasound. We also reviewed that it can take another week before she feels the full effect of the injection. She also confirmed that she is not able to take NSAIDs due to being on blood thinner. She verbalized understanding regarding all that was discussed * Telephone Encounter - Dariana Isbell - 01/19/2023 8:50 AM EDT Name of Caller: Siobhan Relationship to Patient: Self Symptoms/Concerns: Pt is having increasing L shoulder pain and is wanting to know if there is something she can do for relief. 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 Please advise. Provider: Carmen Practice Name: [facility] documented in this [facility]05-15-2023 History of Present illness Narrative* Rusty Mercado MD - 02/12/2023 2:45 PM EDT Images from the original note were not included. [facility] [address] [place] [address] Dept: [phone] Dept Siobhan Haas 1960 [id number] 02/12/2023 HISTORY OF PRESENT ILLNESS: Siobhan is here for her 8 week(s) postoperative visit s/p #1 Incision and drainage abscess Left thigh/AKA (Wound dimensions: Length medial to lateral: 12 cm, Width anterior to posterior: 3 cm, Depth:4 cm . Siobhan reports that her pain has decreased since the surgery/last visit Siobhan reports that her swelling is worse than at the last visit Siobhan had been instructed to be nonweight bearing on the bilateral lower extremity. Siobhan has been compliant with her weight bearing restrictions Siobhan has not started therapy yet Siobhan denies fevers and chills and has not had calf pain or shortness of breath In general Siobhan feels that she is doing about the same as she was doing at the last visit Other issues or concerns that Siobhan would like addressed at this visit: incision and inflammationStates she has been doing her own dressing changes using a mirror to see the incision site and noticed some drainage and discolored material 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 ([facility]) 07/27/2020 Asthma Cellulitis Constipation Depression Difficult intubation 12/04/2022 Fibromyalgia GERD (gastroesophageal reflux disease) Hx of right BKA ([facility]) ([facility]) Hypertension Morbidly obese ([facility]) 02/03/2019 BMI 50.52 On home O2 FAY treated with BiPAP Osteoarthritis Osteomyelitis of right foot ([facility]) SCHEDULED FOR THE SURGERY ON 02/11/2019 Seasonal allergies Shortness of breath URSULA (stress urinary incontinence, female) Vertigo Allergies Allergen Reactions Amlodipine Swelling Cefepime Itching Clonazepam Other reaction(s): Other (See Comments) made me sleep & cry Ketamine Lisinopril Swelling Vancomycin Rash PHYSICAL EXAM: This is an age appropriate appearing female who is alert and oriented x 3. The patient appears wellnourished. The patient is able to verbalize normally and seems to have a good understanding of her situation. Normocephalic, atraumatic Respiratory: No shortness of breath The left Above knee amputation is examined. Skin is warm and dry Capillary refill in the AKA is less than 3 seconds. Siobhan is able to actively move the hip The incision(s) is/are mostly healed. Area near central-lateral side of incision approximately 3 inches in length with superficial opening with moist fibrous tissue. This area was debrided in office with a curette down to good bleeding granulation tissue. No tunneling in the wound was found. There is no surrounding erythema or fluctuance. Tenderness is not present on exam Other findings on exam: None Ambulation: Siobhan was evaluated in a wheelchair/gurney today and I did not have her stand or walktoday RADIOGRAPHIC INTERPRETATION: No xrays were obtained or reviewed REVIEW OF RELATED PREVIOUS DOCUMENTATION: No documents related to the current problem(s) were reviewed or no documents were available for review. LABORATORY RESULT INTERPRETATION: No labs were reviewed/No labs available for review DIAGNOSIS: Diagnosis Plan 1. 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 I explained to Siobhan that she had some fibrinous type tissue overlying good granulation tissue. Iremoved the fibrinous tissue with a curette in the office today. Excellent bleeding from the underlying granulation tissue was present. I want her to continue wet-to-dry dressing changes. I explained to Siobhan that because of the appearance of the incision I want to start wet to dry dressing changes once or twice a day depending on how much drainage is present. Siobhan was instructedhow to apply the dressing and where it should be placed. An adequate amount of the dressing material was given to Siobhan here in the office that should last until her next visit. We will see Siobhan back in 6 weeks for re-evaluation. If she has any questions or concerns she wasencouraged to contact the office to be seen sooner. Follow up in about 6 weeks (around 03/26/2023). Electronically signed by CARMELA Ramos [facility] Department of Orthopedic surgery 02/12/2023 4:52 PM Voice recognition was used for portions of this note and although it was reviewed prior to signing some incorrect words or phrases could be present. documented in this [facility]05-15-2023 History of Present illness Narrative* Jani Morales MD - 02/12/2023 2:00 PM EDT Images from the original note were not included. [facility] [address] [facility] [address] Dept: [phone] Dept Chief Complaint Patient presents with Follow-up Left Shoulder Subjective History of Present Illness: Siobhan Haas follows up today for left shoulder pain. Since the last visit on 01/30/2023, symptoms are unchanged. Current symptoms are aching and sharp. She rates symptoms as a 7/10 at rest and a 9/10 at worst. Pain is primarily located anteriorly on theshoulders and radiates lateral line to the shoulder Imaging to date: X-ray November 2022 Treatment to date: PT/OT/HEP: no Ice: no Heat: no Medications: Tylenol: yes, not helpful NSAIDs: yes, Ibuprofen/Motrin/Advil, not helpful Oral steroids: no Muscle relaxants: no Nerve medications: no Targeted injections: Corticosteroid Injection December 2022. No change in symptoms.; Cortisone Injection January 2023 Assistive devices: wheelchair Fall risk assessment: Completed in the past 12 months Objective Visit Vitals Temp 36.7 C (98 F) Physical Exam: General: Alert, well appearing, no acute distress. Respiratory: Breathing comfortably on room air. No respiratory distress. Skin: Warm, dry, intact. No visible rashes or erythema overlying area of focused exam. Right Shoulder Exam Tenderness The patient is experiencing tenderness in the acromioclavicular joint. Range of Motion Active abduction: 90 abnormal Passive abduction: 90 abnormal Extension: 30 abnormal External rotation: 50 abnormal Forward flexion: 90 abnormal Muscle Strength Abduction: 3/5 Internal rotation: 3/5 External rotation: 3/5 Supraspinatus: 3/5 Subscapularis: 3/5 Biceps: 3/5 Tests Contreras test: positive Cross arm: positive Impingement: positive Drop arm: negative Other Erythema: absent Sensation: normal Pulse: present Left Shoulder Exam Tenderness The patient is experiencing tenderness in the acromioclavicular joint. Range of Motion Active abduction: 90 abnormal Passive abduction: 90 abnormal Extension: 30 abnormal External rotation: 50 abnormal Forward flexion: 90 abnormal Muscle Strength Abduction: 3/5 Internal rotation: 3/5 External rotation: 3/5 Supraspinatus: 3/5 Subscapularis: 3/5 Biceps: 3/5 Tests Contreras test: positive Cross arm: positive Impingement: positive Drop arm: negative Other Erythema: absent Sensation: normal Pulse: present External Notes No pertinent interval updates Labs Lab Results Component Value Date HGBA1C 5.4 11/17/2022 Lab Results Component Value Date CREATININE 0.53 12/12/2022 Imaging No new imaging since last visit EMG/NCT N/A Procedure Procedure completed today, details below Use of ultrasound visualization of the needle was required to increase patient's safety by excluding inadvertent intermuscular or intertendinous placement and minimizing bleeding and injury by avoiding osteochondral and nearby neurovascular structures. Guidance also maximizes accurate injection placement and likely clinical benefit beyond that obtained from a non-guided injection. This allows increased diagnostic specificity when evaluating effectiveness of the injection. Verbal and written consent was obtained from the patient left [facility]. Consent included possibility of bleeding, infection, hypoglycemia, hyperglycemia, increased pain, steroid flare, and permanenthypopigmentation and fat atrophy. Using real-time ultrasound I localized the joint. Sterile prep and freeze spray for analgesia. Using a 27-gauge 1 inch needle I injected the joint after aspiration without withdraw with 0.5 cc of Celestone and 0.5 cc of 1% lidocaine. The patient tolerated the procedure well. Verbal and written consent was obtained from the patient right [facility]. Consent included possibility of bleeding, infection, hypoglycemia, hyperglycemia, increased pain, steroid flare, and permanent hypopigmentation and fat atrophy. Using real-time ultrasound I localized the joint. Sterile prep and freeze spray for analgesia. Using a 27-gauge 1 inch needle I injected the joint after aspiration without withdraw with 0.5 cc of Celestone and 0.5 cc of 1% lidocaine. The patient tolerated the procedure well. Pertinent images saved. Assessment Diagnosis Plan 1. Osteoarthritis of AC (acromioclavicular) joint lidocaine (Xylocaine) 1 % injection 4 mL betamethasone acetate-betamethasone sodium phosphate (Celestone) injection 6 mg 2. Chronic pain of both shoulders Plan Bilateral shoulder pain from osteoarthritis. Bilateral ultrasound-guided AC joint injections today. Postinjection instructions reviewed. She can use ice or Tylenol for pain or discomfort. Watch for any signs of bleeding or infection. Follow-up in 2 weeks or sooner if needed with a Leftronict message or phone call update. Follow up in about 2 weeks (around 02/26/2023), or if symptoms worsen or fail to improve. Jani Morales MD 02/12/2023 1:53 PM Please note that portions of this note may have been completed with voice recognition software. Documentation reviewed prior to signing but minor errors in telecommunications administrator may have occurred. documented in this [facility]05-15-2023 Instructions* Patient Instructions* Jani Morales MD - 02/12/2023 2:00 PM EDT Orthopaedics and Sports Medicine Patient Care Instructions Following a Cortisone Injection Take it easy for the next 2-3 days and do not increase your activity level even if you notice a significant improvement. The numbing medicine in the injection will wear off in 1-2 hours and you may experience tenderness later today. Ice the area for 15-20 minutes when needed this afternoon and again later tonight Do not use heating pads, hot tubs or whirlpools The steroid can take up to 3-5 days to take effect If you have diabetes, the injection may temporarily increase your blood sugar levels If you have high blood pressure, the injection may temporarily increase you blood pressure If you are referred to physical therapy, please wait 3 days after your injection to start your first physical therapy appointment Please observe your injection site for redness, swelling, and increase warmth, If you notice any ofthese symptoms at the joint that last longer than 2 days or if you develop a fever, please call theoffice as soon as possible at [phone] documented in this [facility]05-02-2023 History of Present illness Narrative* Jani Morales MD - 01/30/2023 11:10 AM EDT Images from the original note were not included. [facility] [address] [facility] [address] Dept: [phone] Dept Chief Complaint Patient presents with Follow-up Left Shoulder Subjective History of Present Illness: Siobhan Haas follows up today for left shoulder pain. Since the last visit on 01/15/2023, symptoms are unchanged. Current symptoms are aching and sharp that is primarily located on the lateral line and radiates into the elbow. She rates symptoms as a 8/10 at rest and a 10/10 at worst. Imaging to date: X-ray November 2022 Treatment to date: PT/OT/HEP: no Ice: no Heat: no Medications: Tylenol: yes, not helpful NSAIDs: yes, Ibuprofen/Motrin/Advil, not helpful Oral steroids: no Muscle relaxants: no Nerve medications: no Targeted injections: Corticosteroid Injection December 2022. No change in symptoms. Assistive devices: wheelchair Fall risk assessment: Completed in the past 12 months Objective Visit Vitals Temp 36.4 C (97.6 F) Physical Exam: General: Alert, well appearing, no acute distress. Respiratory: Breathing comfortably on room air. No respiratory distress. Skin: Warm, dry, intact. No visible rashes or erythema overlying area of focused exam. External Notes No pertinent interval updates Labs Lab Results Component Value Date HGBA1C 5.4 11/17/2022 Lab Results Component Value Date CREATININE 0.53 12/12/2022 Imaging No new imaging since last visit EMG/NCT N/A Procedure Procedure completed today, details below Shoulder USCSi- L shoulder pain Use of ultrasound visualization of the needle was required to increase patient's safety by excluding inadvertent intermuscular or intertendinous placement and minimizing bleeding and injury by avoiding osteochondral and nearby neurovascular structures. Guidance also maximizes accurate injection placement and likely clinical benefit beyond that obtained from a non-guided injection. This allows increased diagnostic specificity when evaluating effectiveness of the injection. Verbal and written consent was obtained from the patient. Consent included possibility of bleeding,infection, nerve injury, increased pain. Agricultural Equipment Mechanic ultrasound was performed for needle placement. Sterile prep and after freeze spray. Using a 22-gauge 3.5 inch needle I then injected the patient with 3 ml 1% Lidocaine in the soft tissues for analgesia. The needle was directed to the joint. Injection after aspiration of 1 ml Betamethasone and 3 ml 1% lidocaine. The patient tolerated the procedure well and noticed pain improvement. There were no complications. Pertinent ultrasound images were saved. Assessment Diagnosis Plan 1. Primary osteoarthritis, left shoulder lidocaine (Xylocaine) 1 % injection 7 mL betamethasone acetate-betamethasone sodium phosphate (Celestone) injection 6 mg Plan Left shoulder osteoarthritis with pain. Ultrasound-guided glenohumeral joint injection today and postinjection instructions reviewed. She can use ice or Tylenol for pain or discomfort. Follow-up in 2 weeks for reevaluation and consider similar treatment on her right-sided symptomatic. No follow-ups on file. Jani Morales MD 01/30/2023 10:44 AM Please note that portions of this note may have been completed with voice recognition software. Documentation reviewed prior to signing but minor errors in telecommunications administrator may have occurred. documented in this [facility]05-02-2023 Instructions* Patient Instructions* Jani Morales MD - 01/30/2023 11:10 AM EDT Orthopaedics and Sports Medicine Patient Care Instructions Following a Cortisone Injection Take it easy for the next 2-3 days and do not increase your activity level even if you notice a significant improvement. The numbing medicine in the injection will wear off in 1-2 hours and you may experience tenderness later today. Ice the area for 15-20 minutes when needed this afternoon and again later tonight Do not use heating pads, hot tubs or whirlpools The steroid can take up to 3-5 days to take effect If you have diabetes, the injection may temporarily increase your blood sugar levels If you have high blood pressure, the injection may temporarily increase you blood pressure If you are referred to physical therapy, please wait 3 days after your injection to start your first physical therapy appointment Please observe your injection site for redness, swelling, and increase warmth, If you notice any ofthese symptoms at the joint that last longer than 2 days or if you develop a fever, please call theoffice as soon as possible at [phone] documented in this [facility]04-21-2023 Telephone encounter Note* Telephone Encounter - Shahla Galvin RN - 01/19/2023 9:07 AM EDT Left shoulder pain with a history of osteoarthritis, Subacromial injection 01/15/23 Spoke with patient. She states she is still having severe pain in her left shoulder. She is asking if there is anything else she can do. We reviewed Dr Morales's plan from his last note: She can use ice or Tylenol for pain or discomfort, follow-up in 2 weeks and consider a glenohumeraljoint injection with ultrasound. We also reviewed that it can take another week before she feels the full effect of the injection. She also confirmed that she is not able to take NSAIDs due to being on blood thinner. She verbalized understanding regarding all that was discussed [employer] [id number] Miscellaneous Notes* Telephone Encounter - Shahla Galvin RN - 01/19/2023 9:07 AM EDT Left shoulder pain with a history of osteoarthritis, Subacromial injection 01/15/23 Spoke with patient. She states she is still having severe pain in her left shoulder. She is asking if there is anything else she can do. We reviewed Dr Morales's plan from his last note: She can use ice or Tylenol for pain or discomfort, follow-up in 2 weeks and consider a glenohumeraljoint injection with ultrasound. We also reviewed that it can take another week before she feels the full effect of the injection. She also confirmed that she is not able to take NSAIDs due to being on blood thinner. She verbalized understanding regarding all that was discussed * Telephone Encounter - Dariana Isbell - 01/19/2023 8:50 AM EDT Name of Caller: Siobhan Relationship to Patient: Self Symptoms/Concerns: Pt is having increasing L shoulder pain and is wanting to know if there is something she can do for relief. 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 Please advise. Provider: Carmen Practice [facility] [id number] Telephone encounter Note* Telephone Encounter - Dariana Isbell - 01/19/2023 8:50 AM EDT Name of Caller: Siobhan Relationship to Patient: Self Symptoms/Concerns: Pt is having increasing L shoulder pain and is wanting to know if there is something she can do for relief. 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 Please advise. Provider: Carmen Practice Name[id number] Telephone encounter Note* Telephone Encounter - Radha Whalen LPN - 01/15/2023 10:55 AM EDT Verbally spoke with Dr. Avendano, patient will complete IV therapy tomorrow and follow up with Dr. Avendano on 01/16. No need to replace patients line. I called Jose Pierson, patient was discharged home with home care. I spoke with Siobhan and informed her that she did not need to have her PICC linereplaced but Dr. Maxwell will still see her tomorrow. I informed Betsy at [facility]. [id number] Miscellaneous Notes* Telephone Encounter - Radha Whalen LPN - 01/15/2023 10:55 AM EDT Verbally spoke with Dr. Avendano, patient will complete IV therapy tomorrow and follow up with Dr. Avendano on 01/16. No need to replace patients line. I called Jose Pierson, patient was discharged home with home care. I spoke with iSobhan and informed her that she did not need to have her PICC linereplaced but Dr. Maxwell will still see her tomorrow. I informed Betsy at [facility]. * Telephone Encounter - Jani Michaels MD - 01/14/2023 9:53 PM EDT Received call from [facility]- patient's PICC is out. I reviewed chart and OPAT order ends 01/16. Will inform patient she may not need line replaced, and will defer to Dr. Maxwell for next steps. documented in this [facility]04-17-2023 History of Present illness Narrative* Jani Morales MD - 01/15/2023 10:00 AM EDT Images from the original note were not included. [facility] [address] [facility] [address] Dept: [phone] Dept Chief Complaint Patient presents with Follow-up Left Shoulder Subjective History of Present Illness: Siobhan Haas follows up today for left shoulder pain. Since the last visit, symptoms are unchanged. Current symptoms are aching. She rates symptoms as a 4/10 at rest and a 10/10 at worst. Imaging to date: X-ray November 2022 Treatment to date: PT/OT/HEP: no Ice: no Heat: no Medications: Tylenol: yes, not helpful NSAIDs: yes, Ibuprofen/Motrin/Advil, not helpful Oral steroids: no Muscle relaxants: no Nerve medications: no Targeted injections: Corticosteroid Injection November 2022. No change in symptoms. Assistive devices: wheelchair Fall risk assessment: Completed in the past 12 months Objective Visit Vitals Temp 36.6 C (97.8 F) Physical Exam: General: Alert, well appearing, no acute distress. Respiratory: Breathing comfortably on room air. No respiratory distress. Skin: Warm, dry, intact. No visible rashes or erythema overlying area of focused exam. Right Shoulder Exam Right shoulder exam is normal. Left Shoulder Exam Tenderness The patient is experiencing tenderness in the acromion, acromioclavicular joint and biceps tendon. Range of Motion Active abduction: abnormal Passive abduction: abnormal Extension: abnormal External rotation: abnormal Forward flexion: abnormal Muscle Strength Abduction: 2/5 Internal rotation: 2/5 External rotation: 2/5 Supraspinatus: 2/5 Subscapularis: 2/5 Biceps: 2/5 Tests Contreras test: positive Cross arm: positive Impingement: positive Drop arm: positive Other Erythema: absent Pulse: present External Notes No pertinent interval updates Labs Lab Results Component Value Date HGBA1C 5.4 11/17/2022 Lab Results Component Value Date CREATININE 0.53 12/12/2022 Imaging No new imaging since last visit EMG/NCT N/A Procedure Procedure completed today, details below Verbal and written consent was obtained from the patient for a left SACSi. Consent included possibility of bleeding, infection, hypoglycemia, hyperglycemia, increased pain, steroid flare, and permanent hypopigmentation and fat atrophy. Sterile prep. I injected the patient's bursa after aspiration wi thout withdraw with 1 cc of Betamethasone and 3 cc of 1 % lidocaine. The patient tolerated the procedure well. There were no complications. Assessment Diagnosis Plan 1. Primary osteoarthritis, left shoulder Plan Left shoulder pain with a history of osteoarthritis. Subacromial injection today and postinjection instructions reviewed. She can use ice or Tylenol for pain or discomfort. We discussed a follow-up in 2 weeks and consider a glenohumeral joint injection with ultrasound. Follow up in about 2 weeks (around 01/29/2023), or if symptoms worsen or fail to improve. Jani Morales MD 01/15/2023 10:07 AM Please note that portions of this note may have been completed with voice recognition software. Documentation reviewed prior to signing but minor errors in telecommunications administrator may have occurred. documented in this [facility]04-17-2023 Instructions* Patient Instructions* Jani Morales MD - 01/15/2023 10:00 AM EDT Orthopaedics and Sports Medicine Patient Care Instructions Following a Cortisone Injection Take it easy for the next 2-3 days and do not increase your activity level even if you notice a significant improvement. The numbing medicine in the injection will wear off in 1-2 hours and you may experience tenderness later today. Ice the area for 15-20 minutes when needed this afternoon and again later tonight Do not use heating pads, hot tubs or whirlpools The steroid can take up to 3-5 days to take effect If you have diabetes, the injection may temporarily increase your blood sugar levels If you have high blood pressure, the injection may temporarily increase you blood pressure If you are referred to physical therapy, please wait 3 days after your injection to start your first physical therapy appointment Please observe your injection site for redness, swelling, and increase warmth, If you notice any ofthese symptoms at the joint that last longer than 2 days or if you develop a fever, please call theoffice as soon as possible at [phone] documented in this [facility]04-17-2023 History of Present illness Narrative* Rusty Mercado MD - 01/15/2023 9:30 AM EDT Images from the original note were not included. [facility] [address] [facility] [address] Dept: [phone] Dept Siobhan Nette Haas 1960 [id number] 01/15/2023 HISTORY OF PRESENT ILLNESS: Siobhan is here for her 6 week(s) postoperative visit s/p left left Incision and drainage abscess Left thigh/AKA, wound vac application. Siobhan reports that her pain has been minimal Siobhan reports that her swelling has decreased since the last visit feels ready for a pumper gauger Siobhan had been instructed to be nonweight bearing on the left lower extremity. 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 She rports that she did pull her picc line out in her sleep last night and has a follow up with to address this week 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 ([facility]) 07/27/2020 Asthma Cellulitis Constipation Depression Difficult intubation 12/04/2022 Fibromyalgia GERD (gastroesophageal reflux disease) Hx of right BKA ([facility]) ([facility]) Hypertension Morbidly obese ([facility]) 02/03/2019 BMI 50.52 On home O2 FAY treated with BiPAP Osteoarthritis Osteomyelitis of right foot ([facility]) SCHEDULED FOR THE SURGERY ON 02/11/2019 Seasonal allergies Shortness of breath URSULA (stress urinary incontinence, female) Vertigo Allergies Allergen Reactions Amlodipine Swelling Cefepime Itching Clonazepam Other reaction(s): Other (See Comments) made me sleep & cry Ketamine Lisinopril Swelling Vancomycin Rash PHYSICAL EXAM: This is an age appropriate appearing female who is alert and oriented x 3. The patient appears wellnourished. The patient is able to verbalize normally and seems to have a good understanding of her situation. Normocephalic, atraumatic Respiratory: No shortness of breath The left Above knee amputation is examined. Skin is warm and dry Capillary refill in the AKA is less than 3 seconds. Siobhan is able to actively move the hip The incision(s) is/are partially healed with area of granulation tissue Tenderness is present over the amputation site Other findings on exam: None Ambulation: Siobhan was evaluated in a wheelchair/gurney today and I did not have her stand or walktoday Clinical Images: RADIOGRAPHIC INTERPRETATION: No xrays were obtained or reviewed REVIEW OF RELATED PREVIOUS DOCUMENTATION: No documents related to the current problem(s) were reviewed or no documents were available for review. LABORATORY RESULT INTERPRETATION: No labs were reviewed/No labs available for review DIAGNOSIS: Diagnosis Plan 1. 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, initial encounter ([facility]) Wheelchair MEDICAL DECISION MAKING: I had a discussion with Siobhan to make sure she has a good understanding of the diagnoses/issues that I think are present today and understands the plan moving forward. Siobhan will continue the dressing changes and I will see her back in 4 weeks for reevaluation. If she has any problems or concerns prior to the next visit she was instructed to call the office. Follow up in about 4 weeks (around 02/12/2023). Electronically signed by Rusty Mercado MD [facility] Department of Orthopedic surgery 01/15/2023 4:44 PM Voice recognition was used for portions of this note and although it was reviewed prior to signing some incorrect words or phrases could be present. documented in this [facility]04-16-2023 Telephone encounter Note* Telephone Encounter - Jani Michaels MD - 01/14/2023 9:53 PM EDT Received call from [facility]- patient's PICC is out. I reviewed chart and OPAT order ends 01/16. Will inform patient she may not need line replaced, and will defer to Dr. Maxwell for next steps. [facility] Phone: [phone] Miscellaneous Notes* Telephone Encounter - Jani Michaels MD - 01/14/2023 9:53 PM EDT Received call from [facility]- patient's PICC is out. I reviewed chart and OPAT order ends 01/16. Will inform patient she may not need line replaced, and will defer to Dr. Maxwell for next steps. documented in this [facility]04-14-2023 History of Present illness Narrative* Fabrizio Leung MD - 01/12/2023 3:30 PM EDT HPI 59 y.o. female Patient with long history of urgency urinary incontinence Had InterStim about 2 years and 8 months ago. Did very well until recently when the device stopped working The patient noticed a recurrence of her severe overactive bladder and urgency urinary incontinence She would like to proceed with IPG with placement Past Surgical History: Procedure Laterality Date ABDOMINOPLASTY BREAST SURGERY 2006 and abdomin removal for excess COLONOSCOPY ENDOSCOPY, COLON, DIAGNOSTIC FOOT SURGERY Right 2019 IN [place] FOOT SURGERY Right 02/11/2019 FOOT SURGERY Right [...] Right 05/06/2019 Right Below Knee Amputation (CPT 20292), #2 Excisional debridement right iliac crest (wound 7 cm length, 3 cm width, 7 cm depth) TONSILLECTOMY TOTAL KNEE ARTHROPLASTY Left 2013 ARTHROSCOPY FIRST AND KNEE REPLACED Past Medical History: Diagnosis Date Asthma Cellulitis Constipation Depression Fibromyalgia GERD (gastroesophageal reflux disease) Hypertension Morbidly obese ([facility]) 02/03/2019 BMI 50.52 FAY treated with BiPAP Osteoarthritis Osteomyelitis of right foot ([facility]) SCHEDULED FOR THE SURGERY ON 02/11/2019 Seasonal allergies Shortness of breath URSULA (stress urinary incontinence, female) Current Outpatient Medications Medication Sig Dispense Refill oxyCODONE-acetaminophen (PERCOCET) 5-325 MG per tablet promethazine-dextromethorphan (PROMETHAZINE-DM) 6.25-15 MG/5ML syrup valsartan (DIOVAN) 160 MG tablet Take 160 mg by mouth daily loratadine (CLARITIN) 10 MG tablet Take 10 mg by mouth daily potassium chloride (KLOR-CON) 20 MEQ packet Take 20 mEq by mouth 2 times daily citalopram (CELEXA) 40 MG tablet Take 40 mg by mouth daily furosemide (LASIX) 40 MG tablet Take 40 mg by mouth 2 times daily as needed VENTOLIN HFA 108 (90 BASE) MCG/ACT inhaler INHALE 2 PUFFS PO Q 4 H PRN 11 budesonide-formoterol (SYMBICORT) 160-4.5 MCG/ACT AERO Inhale 2 puffs into the lungs cyclobenzaprine (FLEXERIL) 10 MG tablet nightly fluticasone (FLONASE) 50 MCG/ACT nasal spray 1 spray montelukast (SINGULAIR) 10 MG tablet Take 10 mg by mouth nightly omeprazole (PRILOSEC) 20 MG capsule Take by mouth pramipexole (MIRAPEX) 1.5 MG tablet nightly gabapentin (NEURONTIN) 300 MG capsule Take 1 capsule by mouth 2 times daily for 8 days. 10 capsule 0 No current facility-administered medications for this visit. OB History 2 Para 2 Term 2 AB Living 2 SAB TAB Ectopic Molar Multiple Live Births Allergies Allergen Reactions Amlodipine Swelling Physical examination: IPG site with no pain on palpation, no swelling, no bruises. No battery life PVR: 30 ml Assessment: ICD-10-CM 1. Urgency incontinence N39.41 2. Overactive bladder N32.81 I spent a total time of 30 minutes caring for this patient today. The patient was seen and examined. A chart review was performed. I have also spent time communicating results to the patient, counseling/educating the patient, documenting in the medical record and ordering the necessary procedures. I discussed the diagnosis and importance of compliance with the treatment plan. Refractory overactive bladder. Patient with InterStim placed 2 years and 8 months ago. InterStim pulse generator with no battery life. Patient would like to proceed with replacing the old IPG. She understands the risks, which include but are not limited to bleeding, infection, injury to adjacent organs, blood vessels and nerves. She is aware of the possibility of additional surgery and/or re-operation to address any complications. She is aware of the risks of anesthesia, blood clots, andpossible need for transfusion of blood products. She understands that no operation can provide a 100% guarantee, and that recurrence of her OAB is possible in the future. She understands that this operation is designed to treat OAB specifically, and does not address URSULA. The patient was made aware of conservative options for treatment and has either tried or declined them. She is aware that MRI is contraindicated with the device in place. The patient demonstrated her understanding of the above and asked appropriate questions. All her questions were answered and verbal informed consent was obtained. documented in this [facility]03-29-2023 Telephone encounter Note* Telephone Encounter - Akiko Greshammaryuri - 12/27/2022 11:39 AM EDT Name of Caller: Lakisha veterinary laboratory diagnostician at [facility] Contact Reason: Lakisha was calling to let you know that Siobhan saw wound care yesterday and they removed her wound vac and they put a wet to dry dressing on it. She will be faxing over the notes from [facility] when she gets them tomorrow. Office Name: Ortho [id number] Miscellaneous Notes* Telephone Encounter - Akiko Greshammaryuri - 12/27/2022 11:39 AM EDT Name of Caller: Lakisha veterinary laboratory diagnostician at [facility] Contact Reason: Lakisha was calling to let you know that Sibohan saw wound care yesterday and they removed her wound vac and they put a wet to dry dressing on it. She will be faxing over the notes from [facility] when she gets them tomorrow. Office Name: Ortho documented in this [facility]03-22-2023 History of Present illness Narrative* Jani Morales MD - 12/20/2022 1:40 PM EDT Images from the original note were not included. [facility] [address] [place] [address] [place] [id number] Dept: [phone] Dept Chief Complaint Patient presents with New Patient Left shoulder Subjective History of Present Illness: Siobhan Haas is a 62 y.o. female who presents today for injection of left shoulder. She rates symptoms as a 5/10 at rest and a 7/10 at worst. Prior targeted injections: none Fall risk assessment: Less than 65, not applicable Objective Visit Vitals Temp 36.1 C (97 F) Physical Exam: General: Alert, well appearing, no acute distress. Respiratory: Breathing comfortably on room air. No respiratory distress. Skin: Warm, dry, intact. No visible rashes or erythema overlying area of focused exam. Right Shoulder Exam Right shoulder exam is normal. Left Shoulder Exam Tenderness The patient is experiencing tenderness in the acromioclavicular joint, acromion and biceps tendon. Range of Motion Active abduction: 90 abnormal Passive abduction: 90 abnormal Extension: 30 abnormal External rotation: 50 abnormal Forward flexion: 90 abnormal Internal rotation 0 degrees: normal Internal rotation 90 degrees: normal Muscle Strength Abduction: 4/5 Internal rotation: 4/5 External rotation: 4/5 Supraspinatus: 4/5 Subscapularis: 4/5 Biceps: 4/5 Tests Contreras test: positive Cross arm: positive Impingement: positive Drop arm: negative Other Erythema: absent Sensation: normal Pulse: present External Notes No pertinent interval updates Labs Lab Results Component Value Date HGBA1C 5.4 11/17/2022 Lab Results Component Value Date CREATININE 0.53 12/12/2022 Imaging I have personally reviewed the images pertinent to the appointment today EMG/NCT N/A Procedure Procedure completed today, details below Verbal and written consent was obtained from the patient for left SA CSi. Consent included possibility of bleeding and infection, increased pain, and acute inflammatory reaction. The injection area was prepped in normal sterile fashion. I injected the patient's joint via superolateral approach, after aspiration without withdraw, with 1 cc of Betamethasone and 3 cc of 1 % lidocaine. Patient tolerated the procedure well and there were no complications. Injection site was bandaged. Assessment Diagnosis Plan 1. Primary osteoarthritis, left shoulder 2. Acute bursitis of left shoulder lidocaine (Xylocaine) 1 % injection 3 mL betamethasone acetate-betamethasone sodium phosphate (Celestone) injection 6 mg Plan Left shoulder subacromial bursitis. Subacromial injection today. Postinjection instructions reviewed. We discussed her severe arthritis can be treated with a glenohumeral joint injection under ultrasound guidance if she is not improving. Contact us in 2 weeks return to office sooner if needed. Jani Morales MD 12/20/2022 1:44 PM Please note that portions of this note may have been completed with voice recognition software. Documentation reviewed prior to signing but minor errors in telecommunications administrator may have occurred. documented in this [facility]03-22-2023 Instructions* Patient Instructions* Jani Morales MD - 12/20/2022 1:40 PM EDT Orthopaedics and Sports Medicine Patient Care Instructions Following a Cortisone Injection Take it easy for the next 2-3 days and do not increase your activity level even if you notice a significant improvement. The numbing medicine in the injection will wear off in 1-2 hours and you may experience tenderness later today. Ice the area for 15-20 minutes when needed this afternoon and again later tonight Do not use heating pads, hot tubs or whirlpools The steroid can take up to 3-5 days to take effect If you have diabetes, the injection may temporarily increase your blood sugar levels If you have high blood pressure, the injection may temporarily increase you blood pressure If you are referred to physical therapy, please wait 3 days after your injection to start your first physical therapy appointment Please observe your injection site for redness, swelling, and increase warmth, If you notice any ofthese symptoms at the joint that last longer than 2 days or if you develop a fever, please call theoffice as soon as possible at [phone] documented in this [facility]03-22-2023 History of Present illness Narrative* CARMELA Ramos - 12/20/2022 1:00 PM EDT Images from the original note were not included. [facility] [address] [place] [address] [place] [phone] Dept: [phone] Dept Siobhan Nette Haas 1960 [id number] 12/20/2022 HISTORY OF PRESENT ILLNESS: Siobhan is here for her 2 week(s) postoperative visit s/p left Incision and drainage abscess Left thigh/AKA, wound vac application Siobhan reports that her pain has been minimal Siobhan reports that her swelling has been minimal Siobhan had been instructed to be nonweight bearing on the left lower extremity. 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 ([facility]) 07/27/2020 Asthma Cellulitis Constipation Depression Difficult intubation 12/04/2022 Fibromyalgia GERD (gastroesophageal reflux disease) Hx of right BKA ([facility]) ([facility]) Hypertension Morbidly obese ([facility]) ([facility]) 02/03/2019 BMI 50.52 On home O2 FAY treated with BiPAP Osteoarthritis Osteomyelitis of right foot ([facility]) SCHEDULED FOR THE SURGERY ON 02/11/2019 Seasonal allergies Shortness of breath URSULA (stress urinary incontinence, female) Vertigo Allergies Allergen Reactions Amlodipine Swelling Cefepime Itching Clonazepam Other reaction(s): Other (See Comments) made me sleep & cry Ketamine Lisinopril Swelling Vancomycin Rash PHYSICAL EXAM: This is an age appropriate appearing female who is alert and oriented x 3. The patient appears wellnourished. The patient is able to verbalize normally and seems to have a good understanding of her situation. Normocephalic, atraumatic Respiratory: No shortness of breath The left Above knee amputation is examined. Skin is warm and dry Capillary refill in the AKA is less than 3 seconds. Siobhan is able to actively move the hip Healthy granulation tissue present in the incision site. NO purulence, odor, or fluctuance noted. Tenderness is not present on exam Other findings on exam: None Ambulation: Siobhan was evaluated in a wheelchair/gurney today and I did not have her stand or walktoday RADIOGRAPHIC INTERPRETATION: No xrays were obtained or reviewed REVIEW OF RELATED PREVIOUS DOCUMENTATION: No documents related to the current problem(s) were reviewed or no documents were available for review. LABORATORY RESULT INTERPRETATION: No labs were reviewed/No labs available for review DIAGNOSIS: Diagnosis Plan 1. 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 I discussed with Siobhan that her incision looks to be granulating in well with healthy tissue. A wet to dry dressing was placed into the wound in office today and instructions were written to have the wound vac replaced once she is back at the facility to have wound vac changes done 2-3x per week We will see Siobhan back in 4 weeks for re-evaluation. Siobhan is agreeable to the plan. Follow up in about 4 weeks (around 01/17/2023) for Post-Op. Electronically signed by CARMELA Ramos [facility] Department of Orthopedic surgery 12/20/2022 4:24 PM Voice recognition was used for portions of this note and although it was reviewed prior to signing some incorrect words or phrases could be present. documented in this [facility]03-14-2023 Nurse Note* Kary Virgen RN - 12/12/2022 3:38 PM EDT Report called to Lakisha at [facility]. Awaiting transport arrival. [id number] Note* Kary Virgen RN - 12/12/2022 3:38 PM EDT Report called to Lakisha at [facility]. Awaiting transport arrival. documented in this [facility]03-14-2023 Note* Care Coordination - Kierra Lobato - 12/12/2022 2:28 PM EDT Discharge orders sent via Careport to [facility] per TCC request. 7000 completed in HENS system. TCC notified. [id number] Note* Care Coordination - Kierra Lobato - 12/12/2022 2:28 PM EDT Discharge orders sent via Careport to [facility] per TCC request. 7000 completed in [facility] system. TCC notified. [id number] Miscellaneous Notes* Care Coordination - Kierra Lobato - 12/12/2022 2:28 PM EDT Discharge orders sent via Careport to [facility] per TCC request. 7000 completed in [facility] system. TCC notified. * Care Coordination - Unknown Case Management - 12/12/2022 2:25 PM EDT Patient Choice Patient Name: SIOBHAN HAAS Date of : 1960 All Providers Sent Referral Name: [facility] Phone: [phone] Address: [address] [place] [address] Name: [facility] [place] Phone: [phone] Address: [address] [place], [place] [id number] Name: [facility] Address: [address] [place] [address] Name: [facility] Phone: [phone] Address: [address] [id number] Name: [facility] Address: [address] [id number] * Care Coordination - Isabela Cummins RN - 12/12/2022 1:05 PM EDT DC orders, 7000 tasked to be sent to [facility]. * Care Coordination - CHRISTINE Taylor - 12/12/2022 12:08 PM EDT Per TCC Isabela pt to be dc'd today [facility]. Transportation set up with [facility]-they will sisal picker pt at 5:30 . Informed TCC Cindy Mar , who will inform the pt -pt able to let others know about dc, community education coordinator and facility/Sehll aware dc. * Care Coordination - Kierra Lobato - 12/12/2022 9:27 AM EDT Updated therapy progress notes, IV Antibiotic order and current MAR sent via Careport to [facility] per TCC request. TCC notified. * Care Coordination - Isabela Cummins RN - 12/12/2022 7:50 AM EDT Auth requested to be started for [facility]. * Care Coordination - Kierra Lobato - 12/11/2022 3:32 PM EDT Updated clinical and therapy progress notes sent via Careport to [facility] per TCC request. TCC notified. * Care Coordination - Isabela Cummins RN - 12/11/2022 2:59 PM EDT Met with pt at bedside to discuss dc planning. Discussed that [facility] accept and [facility] is still reviewing. Pt states [facility] is [facility] foc. Updated facility via careport. Call placed to dania Bennett to update her on discharge plan. Electronically signed by Isabela Cummins RN on12/11/2022 at 3:08 PM * Care Coordination - Isabela Cummins RN - 12/11/2022 7:54 AM EDT Therapy called, requested updated PT notes for snf placement. * Care Coordination - Isabela Cummins RN - 12/08/2022 3:58 PM EST Met with pt at bedside per pt request. Pt extremely tearful, frustrated that there are no [facility]. Pt called her insurance company and provided TCC with home care agencies which contracts with her insurance. Called supervisor home restoration service, requested those additional referrals be placed. Discussed with pt that we are awaiting responses from facilities and home care agencies as well as awaiting finalized IV antibiotic course so pt will not dc over the weekend. Pt anxious and tearful but verbalizes understanding. TCC will follow up on Sunday with pt. * Care Coordination - Kierra Lobato - 12/08/2022 2:36 PM EST Referral sent via Careport to the following SNFs per TCC request: [facility] Await review and response regarding ability to accept. TCC notified. * Care Coordination - Isabela Cummins RN - 12/08/2022 1:09 PM EST Met with pt at bedside to discuss discharge planning. Reviewed that 14 home care agencies cannot accept so pt will likely need to go to snf for needed care. Pt agreeable to referrals to [facility], [facility], and [facility]. Referrals tasked to be placed in careport. * Care Coordination - Isabela Cummins RN - 12/07/2022 4:16 PM EST Met with pt at bedside, updated her that her chosen facilities cannot accept and we have not yet found accepting home care agency. Pt provided with snf list to review, will return tomorrow for additional choices. * Care Coordination - Isabela Cummins RN - 12/07/2022 2:22 PM EST [facility] SNF cannot accept pt, current waiting list at that facility greater than 2 weeks. * Care Coordination - Isabela Cummins RN - 12/07/2022 1:57 PM EST Met with pt at bedside to discuss discharge planning. Pt states she would like to go home with homecare if possible. Pt states that her son lives with her. Discussed that pt will likely need IV antibiotics, management of wound vac, and wound care. Last admission pt unable to get home care due to home location and insurance coverage. Discussed with pt that home care was not guaranteed but that wewill place referrals to try and find a covering agency. Discussed with supervisor home restoration service. Discussedwith pt that referrals placed to [facility] and [facility] as pt previously requested. Pt states she will only go to a snf close to home, is not interested in seeing if she is a candidate for [facility]. Upon returning to office TCC checked care port. [facility] cannot accept, [facility] not on care port. Call placed, no answered, vm left requesting return call. * Home Care - Leandra Fuller RN - 12/07/2022 12:57 PM EST Referral sent to [facility] to check cost of home infusion. ' * Care Coordination - Kierra Lobato - 12/07/2022 8:52 AM EST Referral sent to the following SNFS per TCC request: [facility] Await review and response regarding ability to accept. TCC notified. * Care Coordination - Isabela Cummins RN - 12/07/2022 7:51 AM EST Referrals to [facility] and [facility] tasked to be sent per pt previous request. Will discuss dc plans with pt today. * Perioperative Nursing Note - Laurie Payne RN - 12/05/2022 7:11 PM EST Pt to floor with transport, nad, resp non labored, alert and oriented * Perioperative Nursing Note - Laurie Payne RN - 12/05/2022 6:46 PM EST Report called to floor, transport initiated * Op Note - Rusty Mercado MD - 12/05/2022 5:03 PM EST Pre-operative Diagnosis: Left thigh/AKA stump abscess Post-operative Diagnosis: Same Procedure: #1 Incision and drainage abscess Left thigh/AKA (Wound dimensions: Length medial to lateral: 12 cm, Width anterior to posterior: 3 cm, Depth: 4 cm #2 Application wound VAC, wound <50 sq cm left thigh/AKA Components used: VAC Anesthesia: general Surgeon: Jess Assistants: Adolfo Aceves Estimated Blood Loss: 50ml Complications: None Specimens: Culture of the left AKA was obtained Medications: Siobhan was on scheduled antibiotics pre-operatively and no additional antibiotics were given Operative findings: The left above-knee amputation wound along the lateral aspect of the amputationsite did not communicate with the underlying femur. The more medial portion of the amputation site appears to be healed with no tunneling or tracking being noted medially. A large amount of calcium sulfate antibiotic cement was present within the wound site which was removed. After incision and drainage was complete a VAC dressing was placed. The plan will be for healing by secondary intent assuming that the wound is responding to the VAC dressing changes. History of present illness: Siobhan is a 62 y.o. female history significant for a left above-knee amputation that became infected underwent multiple operative incision and drainages. At her final incision and drainage the amputation was closed over calcium sulfate antibiotic cement beads. Siobhan presented back to the hospital with increased redness swelling and pain with drainage. Despite the risks of surgery Siobhan consented to proceed. Operative report: I met with [...] of pain or dysfunction, wound healing complications, and late or chronic pain as a result of the surgical intervention. In addition potentially life threatening complications that can occur at the time of surgery and after surgery were discussed including but not limited to deep vein thrombosis, pulmonary embolism, myocardial infarction, stroke and . I initialed her Left lower extremity and signed her consent form. Siobhan was then brought to the operating room and placed in the supine position on the Operating Room table. Care was taken to identify and pad all bony prominences. A general anesthetic was then given by the anesthesia staff and an endotracheal tube was placed by the anesthesia staff. At all times during the operative procedure the patient's head neck and airwaywere protected by the anesthesia staff. A tourniquet was not utilized for the case. Total tourniquet time was less than Not applicable . The Left lower extremity was then prepped and draped in the usual orthopedic sterile fashion. A surgical timeout was then performed with the patient's identification, the procedure to be performed being reviewed with the consent form, verification that the patient had received preoperative antibiotics, and verification of the correct surgical side. Everyone in the operating room stopped what they were doing in order to participate in the timeout. This timeout was performed by myself, the circulating room nurse and the anesthesia staff. The patient's ASA was verified by the nurse machine printer and the anesthesia staff. Fire risk was assessed. The lateral aspect of the above-knee amputation site that was draining was incised and drained. No gross purulence was found. Soft tissue was found covering the distal femur. No tunneling into the medial half of the imitation site was found. No direct communication with the underlying femoral shaftwas found. Debridement of the large amount of calcium sulfate antibiotic cement was performed. Any nonviable appearing skin, subcutaneous tissue or muscle was excised. The entire wound was then thoroughly irrigated with copious amounts of sterile saline and then withXperience surgical irrigant. A culture was then obtained from the wound site. At this point it was decided to place a VAC dressing within the wound. Black VAC sponge was utilized. The skin surrounding the wound was cleaned and dried and then [place] sponges were used to further prepare the skin and then the skin was covered with plastic dressing.. The piece of sponge that had been cut for the wound was placed within the wound. Plastic dressing was then used to cover the sponge/wound. A [place] of plastic drape the size of a quarter was cut out exposing the underlying sponge material for tract pad placement. A tract pad was then placed over the exposed sponge and the tubing from the tract pad was attached to the VAC machine. The machine was started and a good seal withno leaks was present. Siobhan was then awakened from her anesthetic, transferred to her hospital bed and taken to the recovery room in stable medical condition. Post-operative plan: Additional Surgical Intervention: No further plans for operative intervention at this time Weight Bearing Instructions: Siobhan will be nonweight bearing on the left lower extremity. DVT Prophylaxis: Can start/restart chemoprophylaxis from my standpoint Antibiotics: Antibiotic managment per Infectious Disease, will need chronic suppressive antibiotic treatment as surgical cure of infection is unlikely Consults: Wound care for VAC dressing changes every 48 hours left above-knee amputation, first VAC dressing change 12/06/2022 and Consult Infectious Disease for antibiotic management Dressings: VAC dressing change by nursing staff/wound care Q48 hours, first change should be 12/06/2022 Any questions please page Ortho pager (resident manager acquisition) or call my office at [phone] * Brief Op Note - Maximino Aceves JD, MD - 12/05/2022 5:03 PM EST Date: 12/05/2022 Location: [facility] OR Name: Siobhan Haas, : 1960, Diagnosis Pre-op Diagnosis * Surgical wound infection [T81.49XA] Post-op Diagnosis * Surgical wound infection [T81.49XA] Procedures REVISION ABOVE KNEE AMPUTAION LEFT 10138 - MO AMP THIGH THRU FEMUR SEC CLOSURE/SCAR REVISION Surgeons * Rusty Mercado - Primary Procedure Summary Anesthesia: * No anesthesia type entered * ASA: III Estimated Blood Loss: Minimal Drains: Female External Urinary Catheter (Active) Wall Suction (mmHg) 40 12/04/22 034 External Catheter Status In place 12/04/22347 Securement Method Other (Comment) 12/04/22 034 [facility] Soap and water 12/04/22 0100 Staff: Fleet Technician: Dorina Arauz RN Physician Clothes Drier Assembler: CARMELA Ramos Relief Scrub: Narciso Rosado MA Findings: see detailed op report Complications: None; patient tolerated the procedure well. Specimens Collected: Order Name Source Comment Collection Info Order Time AEROBIC AND ANAEROBIC CULTURE WITH STAIN Knee, Left Pre-op diagnosis: Surgical wound infection [T81.49XA] Collected By: Rusty Mercado MD 12/05/2022 5:49 PM Blood Products: None Prophylactic Antibiotics: Pre-operative antibiotics were not given because the patient is on continuous antibiotics for documented preoperative infection. Plan: Plan for definitive vac mgmt of wound. No plans to RTOR Wound care c/s for vac changes MWF starting tomorrow NWB LLE Up with assistance PTOT Elevate LLE Antibiotics per ID Recommend long-term suppressive abx, appreciate recs Monitor Hgb Dressing: wvac, continue Neurovascular and skin checks Ok to resume DVT ppx Pain, medical management per primary Ortho recs: ok for dc after vac change on Sunday if long-term suppressive abx setup and pending vacoutput * Care Plan - Macrina Schrader - 12/04/2022 10:57 PM EST Pt developed severe itching after receiving the cefepime. Cefepime was discontinued and IV benadrylwas ordered. * Care Coordination - Isabela Cummins RN - 12/04/2022 2:10 PM EST Care Managment Initial Assessment Date: 12/05/2022 Patient Name: Siobhan Haas : 1960 Patient Information Source of Information: Patient Cognition/Language: WFL - Within Functional Limits Permission given to speak with patient entry level account representative/caregiver as indicated: Confirmation of Payer with patient/family: Yes Payer Name: [employer] : Confirmation of Primary Care Physician: Primary Caregiver: Family If assistance needed, confirmed caregiver ready, willing and able to care for patient at discharge: Confirmed with: Living Arrangements Current Residence: Private Residence Number of Floors Number of Entry Steps: Bed/Bath Levels: Facility: Facility Name: Plan to Return: Lives with: Children Support Systems: Children, Family members, Friends/neighbors Activities of Daily Living Ambulation: Independent (with use of wheelchair) Bathing/Dressing: Assistance Elimination/Continence/Toileting: Assistance Feeding: Independent Who Assists with Activities of Daily Living: Instrumental Activities of Daily Living Prescription Coverage: Yes Pharmacy Used: Medication Management: Transportation/Shopping: Assistance Provider Transportation Mode: Needs Assistance with Transportation at Discharge: Meal Preparation: Assistance Provider Laundry/Cleaning: Assistance Provider Finances/Bill Paying: Independent Communication: Independent Types of Care Services/Equipment Utilized Care Services: Dialysis Type: Durable Medical Equipment: Wheelchair (standard or power), Hospital Bed Patient's Goal/Discharge Plan Patient expects to be discharged to: rehab Discharge Planning Actions: Continue to follow, Intermediate Facility referral indicated Patient's Choice Rights and [employer] and Collaborative Relationships Disclosed as Indicated for Post-Acute Care: Interdisciplinary Team Engagement: PT/OT, Disease Management Program Social Work Referral for: Additional Information: Met with pt at bedside, introduced self and explained role. Pt came to ed with pain, redness, swelling in stump of left AKA. Pt from home with her son. Pt states she is independent when in her electric wheelchair which she is able to roll herself into. Pt states after her surgery she is agreeable to rehab, would like [facility] or [facility]. [facility], following for dc planning. Isabela Cummins RN * Home Care - Leandra Fuller RN - 12/04/2022 10:34 AM EST Digital Sales Director following case for Discharge Needs. * Significant Event - Anahi Hughes RN - 12/04/2022 1:27 AM EST Undecided where or if will have to go to a rehab facility at this time documented in this [facility]03-14-2023 Note* Care Coordination - Unknown Case Management - 12/12/2022 2:25 PM EDT Patient Choice Patient Name: SIOBHAN HAAS Date of : 1960 All Providers Sent Referral Name: Chiquita Pierson Phone: [phone] Address: [address] [place] [address] Name: [facility] Phone: [phone] Address: [address] [place] [address] Name: [facility] Address: [address] [place] [address] Name: [facility] Phone: [phone] Address: [address] [place] [address] Name: [facility] Address: [address] [place] [address] [id number] [facility]* Care Coordination - Unknown Case Management - 12/12/2022 2:25 PM EDT Patient Choice Patient Name: SIOBHAN HAAS Date of : 1960 All Providers Sent Referral Name: Chiquita Pierson Phone: [phone] Address: [address] [place] [address] Name: [facility] Phone: [phone] Address: [address] [place] [address] Name: [facility] Address: [address] [place] [address] Name: [facility] Phone: [phone] Address: [address] [place] [address] Name: [facility] Address: [address] [place] [address] [place] [id number] Note* Care Coordination - Isabela Cummins RN - 12/12/2022 1:05 PM EDT DC orders, 7000 tasked to be sent to [facility]. [place] [id number] Note* Care Coordination - Isabela Cummins RN - 12/12/2022 1:05 PM EDT DC orders, 7000 tasked to be sent to [facility]. [id number] Hospital course Narrative* Art Shearer MD - 12/12/2022 12:33 PM EDT Discharge Summary Siobhan Haas : 1960 ADMIT DATE: 12/03/2022 DISCHARGE DATE: 12/12/2022 PRIMARY CARE PHYSICIAN: Oj Maddox VISIT STATUS: Admission CODE STATUS: Full Code DISCHARGE DIAGNOSES: Left thigh/above-knee amputation stump abscess status post incision and drainage of abscess/wound VAC application done on 12/05/2022 History of osteomyelitis of left lower extremity status post previous above-knee amputation done inJ3 Left shoulder osteoarthritis Iron deficiency anemia Debility Chronic issue--- Morbid obesity OHS/FAY secondary to on nocturnal BiPAP Right below-knee amputation History of DVT/pulm embolism COPD/Bronchial asthma stable Vitamin D deficiency GERD Peripheral neuropathy Fibromyalgia HOSPITAL COURSE: 62-year-old female with past medical history of morbid obesity, OHS/FAY on BiPAP, previous right below-knee amputation, left above-knee amputation done in October of this year, history of pulm embolism/DVT, COPD/asthma, vitamin D deficiency, GERD, peripheral neuropathy, history of depression, fibromyalgia Admitted following left stump redness/drainage of pus from left above-knee amputation stump . Work-up during this admission showed x-ray of left knee/femur-Cortical irregularity identified about the distal femoral stem concerning for osteomyelitis, clinical correlation is recommended., Creatinine 0.5, troponin negative, hemoglobin 8.9 , Lactic acid 1.2, Pro-Sarah 0.04, CRP 23, ESR 62 .Blood cultures was negative. Patient was treated for left thigh/above-knee amputation stump abscess, status post Incision and drainage abscess Left thigh/AKA, Application of wound VAC to left thigh/AKA site done on 12/05/2022. Blood culture was negative. Seen by infectious disease team, recommended daptomycin, meropenem to be continued with stop date of 01/16/2023 . Patient had right upper extremity PICC line placed. She was also complaining of left shoulder pain, x-ray of left shoulder consistent with osteoarthritis. She also had iron deficiency anemia, replaced. Seen by physical therapy, recommended halfway facility. She will be continued with nocturnal BiPAP for FAY. On the day of discharge he denies new symptom. Afebrile, Vital signs stable On examination- HEENT: Eyes: No scleral icterus Pallor noted Morbid obese female Oral: Tongue is semi-moist Cardiovascular: S1S2 heard, RRR Respiratory: Clear to auscultation bilaterally anteriorly Abdomen: Soft, non-tender, non-distended with normal bowel sounds. Neurology- Awake alert, appears comfortable Extremity-right below-knee amputation noted Left above-knee amputation/wound VAC noted Right upper extremity PICC line noted CONSULTANTS: Infectious disease, orthopedics RECOMMENDED NEXT STEPS: Stop date of daptomycin, meropenem is 01/16/2023 Weekly CBC, CMP, CPK level to be monitored till IV antibiotic is completed. Discontinue PICC line after IV antibiotic is completed DISCHARGE MEDICATIONS: Medication List START taking these medications Lidocaine 4 % patch Place 1 patch on the skin daily for 15 days. Apply patch to left shoulder. Patch may remain in place for up to 12 hours in any 24 hour period. Do not start before December 13, 2022. Start taking on: December 13, 2022 melatonin 5 MG tablet Take 1 tablet (5 mg) by mouth Nightly as needed (insominia) for up to 15 days. miconazole 2 % powder Commonly known as: Micotin Apply topically 2 times daily. oxyCODONE-acetaminophen 5-325 MG tablet Commonly known as: Percocet Take 2 tablets by mouth every 6 hours as needed for severe pain (7-10) for up to 5 days. CHANGE how you take these medications albuterol 108 (90 Base) MCG/ACT inhaler What changed: Another medication with the same name was removed. Continue taking this medication, and follow the directions you see here. amitriptyline 100 MG tablet Commonly known as: Elavil Take 1 tablet (100 mg) by mouth Nightly. What changed: how much to take how to take this when to take this budesonide-formoterol 160-4.5 MCG/ACT inhaler Commonly known as: Symbicort Inhale 2 puffs in the morning and 2 puffs in the evening. What changed: when to take this citalopram 20 MG tablet Commonly known as: CeleXA Take 1 tablet (20 mg) by mouth daily. Do not start before December 13, 2022. Start taking on: December 13, 2022 What changed: medication strength how much to take DAPTOmycin 500 MG injection Commonly known as: Cubicin Infuse 900 mg into a venous catheter Every 24 hours. Stop date for antibiotic is 01/16/2023 What changed: medication strength additional instructions ferrous sulfate 325 (65 Fe) MG tablet Take 1 tablet (325 mg) by mouth daily (with breakfast). Do not start before December 13, 2022. Start taking on: December 13, 2022 What changed: when to take this LORazepam 0.5 MG tablet Commonly known as: Ativan Take 1 tablet (0.5 mg) by mouth every 8 hours as needed for anxiety for up to 7 days. What changed: when to take this reasons to take this additional instructions meropenem 1 g injection Commonly known as: Merrem Infuse 2 g into a venous catheter in the morning and 2 g at noon and 2 g before bedtime. Stop date for antibiotic is 01/16/2023. What changed: medication strength additional instructions CONTINUE taking these medications apixaban 5 MG tablet Commonly known as: Eliquis Take 1 tablet (5 mg) by mouth 2 times daily. budesonide 0.25 MG/2ML nebulizer solution Commonly known as: Pulmicort cholecalciferol 1.25 MG (58941 UT) capsule Commonly known as: Vitamin D-3 gabapentin 300 MG capsule Commonly known as: Neurontin Take 1 capsule (300 mg) by mouth Nightly. methocarbamol 750 MG tablet Commonly known as: Robaxin Take 1 tablet (750 mg) by mouth in the morning and 1 tablet (750 mg) at noon and 1 tablet (750 mg) before bedtime. Do all this for 10 days. polyethylene glycol (PEG) 3350 17 g packet Commonly known as: Miralax senna-docusate sodium 8.6-50 MG tablet Commonly known as: Senokot-S Take 2 tablets by mouth Nightly. tiotropium 18 MCG inhalation capsule Commonly known as: Spiriva Place 1 capsule (18 mcg) into inhaler and inhale in the morning. VITAMIN C PO STOP taking these medications acetaminophen 500 MG tablet Commonly known as: Tylenol oxyCODONE 10 MG immediate release tablet Commonly known as: Roxicodone Where to Get Your Medications You can get these medications from any pharmacy Bring a paper prescription for each of these medications oxyCODONE-acetaminophen 5-325 MG tablet Information about where to get these medications is not yet available Ask your nurse or doctor about these medications amitriptyline 100 MG tablet budesonide-formoterol 160-4.5 MCG/ACT inhaler citalopram 20 MG tablet DAPTOmycin 500 MG injection ferrous sulfate 325 (65 Fe) MG tablet gabapentin 300 MG capsule Lidocaine 4 % patch LORazepam 0.5 MG tablet melatonin 5 MG tablet meropenem 1 g injection miconazole 2 % powder tiotropium 18 MCG inhalation capsule DIET: Adult diet Regular ACTIVITY: Up with assist COMPLEXITY OF FOLLOW UP: [] Moderate Complexity: follow up within 7-14 calendar days (90506) [] Severe Complexity: follow up within 7 calendar days (11745) FOLLOW UP TESTING, PENDING RESULTS OR REFERRALS AT TRANSITIONAL CARE VISIT: [] Yes [] No PENDING STUDIES: DISPOSITION: Skilled Facility FACILITY/HOME CARE AGENCY NAME: Follow up with [facility] [address] [facility] [id number] Go on 12/20/2022 1:00PM, post op Oj Maddox [address] [place] [address] [facility] [address] Schedule an appointment as soon as possible for a visit in 1 week(s) INSTRUCTIONS TO MA/SW: Please call patient on [...] frame. DISCHARGE TIME: > 30 minutes SIGNED: Art Shearer MD 12/12/2022, 12:33 PM documented in this [facility]03-14-2023 Note* Care Coordination - CHRISTINE Taylor - 12/12/2022 12:08 PM EDT Per SOLO Mar pt to be dc'd today to [facility] at a snf loc. Transportation set up with [facility]-they will sisal picker pt at 5:30 . Informed TCC Isabela, Cindy Neil , who will inform the pt -pt able to let others know about dc, community education coordinator and facility/Shell aware dc. [id number] Note* Care Coordination - CHRISTINE Taylor - 12/12/2022 12:08 PM EDT Per SOLO Mar pt to be dc'd today to [facility] at a snf loc. Transportation set up with [facility]-they will sisal picker pt at 5:30 . Informed TCC Isabela, Rn Kary Neil , who will inform the pt -pt able to let others know about dc, community education coordinator and facility/Shell aware dc. [facility] [id number] History of Present illness Narrative* Art Shearer MD - 12/12/2022 11:18 AM EDT Images from the original note were not included. Hospitalist Progress Note 12/12/2022 11:18 AM [phone]: Please page me for patient care issues. [phone]: Please page [facility] night Hospitalist for any issues. Subjective: Admit Date: 12/03/2022 PCP: Oj Maddox Room#: W7726/W-218 A Interval History: Patient seen and examined No new event overnight 62-year-old female with past medical history of morbid obesity, OHS/FAY on BiPAP, previous right below-knee amputation, left above-knee amputation done in October of this year, history of pulm embolism/DVT, COPD/asthma, vitamin D deficiency, GERD, peripheral neuropathy, history of depression, fibromyalgia Patient denies any diarrhea No chest pain, shortness of breath, cough No nausea, vomiting, abdominal pain No fever spike noted Pain in left leg controlled at rest Lab data showed potassium 3.7, creatinine 0.5, iron 33, hemoglobin 7.9 Rest of review of 10 system done was negative, positive findings as documented in HPI Past medical history : 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) 07/27/2020 Asthma Cellulitis Constipation Depression Difficult intubation 12/04/2022 Fibromyalgia GERD (gastroesophageal reflux disease) Hx of right BKA ([facility]) ([facility]) Hypertension Morbidly obese ([facility]) ([facility]) 02/03/2019 BMI 50.52 On home O2 FAY treated with BiPAP Osteoarthritis Osteomyelitis of right foot ([facility]) SCHEDULED FOR THE SURGERY ON 02/11/2019 Seasonal allergies Shortness of breath URSULA (stress urinary incontinence, female) Vertigo Adult diet Regular @[id number]@ Medications: amitriptyline, 100 mg, Oral, Nightly apixaban, 5 mg, Oral, BID citalopram, 20 mg, Oral, Daily DAPTOmycin (Cubicin) IVPB, 6 mg/kg (Adjusted), IntraVENous, q24h [START ON 12/13/2022] ferrous sulfate, 325 mg, Oral, Daily with breakfast gabapentin, 300 mg, Oral, Nightly heparin flush, 250 Units, IntraCATHeter, q12h iron sucrose, 200 mg, IntraVENous, Once Lidocaine, 1 patch, TransDERmal, Daily meropenem, 2,000 mg, IntraVENous, q8h methocarbamol, 750 mg, Oral, 3 times per day miconazole, , Topical, BID mometasone-formoterol, 2 puff, Inhalation, BID pantoprazole, 40 mg, Oral, qAM AC polyethylene glycol (PEG) 3350, 17 g, Oral, Daily senna-docusate sodium, 2 tablet, Oral, Nightly sodium chloride 0.9%, 10 mL, IntraCATHeter, q12h tiotropium, 1 capsule, Inhalation, Daily LABS: CBC: Recent Labs 12/12/22 0612 WBC 6.7 RBC 3.20* HGB 7.9* HCT 24.9* MCV 77.9* RDW 21.6* PLT 385 BMP: Recent Labs 12/10/22 0553 12/12/22 0612 NA -- 138 K -- 3.7 CL -- 106 CO2 -- 27 BUN -- 18* CREATININE 0.58 0.53 GLUCOSE -- 113* CALCIUM -- 9.4 ANIONGAP -- 5 LIVER PROFILE: Recent Labs 12/12/22 0612 AST 24 ALT 18 BILITOT 0.3 ALKPHOS 140* PROT 6.3 PT/INR: No results for input(s): PROTIME, INR in the last 72 hours. CARDIAC ENZYMES: No results for input(s): TROPONINI in the last 72 hours. Procalcitonin: No results found for: PROCAL XR chest 1 view Result Date: 11/22/2022 Impression: 1. Left arm PICC line as described. The distal tip is in the SVC. 2. No focal infiltrates. Report Dictated on Electronically Signed By: Rusty Brennre Electronically Signed Date/Time: 11/22/2022 4:51 PM EST Objective: Vitals: BP 132/69 Pulse 75 Temp 36.5 C (97.7 F) (Temporal) Resp 19 Ht 5' 7 (1.702 m) Wt (!) 339 lb 3.2 oz (154 kg) SpO2 98% BMI 53.13 kg/m Pulse Ox: SpO2 Av.5 % Min: 95 % Max: 98 % Supplemental O2: O2 Flow Rate (L/min): 2 L/min General appearance: No apparent distress, HEENT: Eyes: No scleral icterus Pallor noted Morbid obese female Oral: Tongue is semi-moist Cardiovascular: S1S2 heard, RRR Respiratory: Clear to auscultation bilaterally anteriorly Abdomen: Soft, non-tender, non-distended with normal bowel sounds. Neurology- Awake alert, appears comfortable Extremity-right below-knee amputation noted Left above-knee amputation/wound VAC noted Right upper extremity PICC line noted Assessment Left thigh/above-knee amputation stump abscess status post incision and drainage of abscess/wound VAC application done on 12/05/2022 History of osteomyelitis of left lower extremity status post previous above-knee amputation done inJanuary 2022 Left shoulder osteoarthritis Iron deficiency anemia Debility Chronic issue--- Morbid obesity OHS/FAY secondary to on nocturnal BiPAP Right below-knee amputation History of DVT/pulm embolism COPD/Bronchial asthma stable Vitamin D deficiency GERD Peripheral neuropathy Fibromyalgia Plan Orthopedics team recommendation noted Infectious disease team following, continue antibiotic as ordered-recommended to continue daptomycin/meropenem with stop date of 01/16/2023. PT/OT recommendation noted Continue inhaler treatment for asthma IV iron started for iron deficiency anemia Continue Eliquis for history of DVT/PE as ordered On GI prophylaxis for GERD Continue rest of medication as ordered CBC in a.m. Continue nocturnal BiPAP for FAY Patient was informed about all work up and treatment plan Discussed with TCC Advance Directive: Full Code Discharge planning: NOTE: This report was transcribed using voice recognition software. Every effort was made to ensureaccuracy; however, inadvertent computerized telecommunications administrator errors may be present. Art Shearer MD Division of Hospitalist Medicine [facility] * Teresa Sandoval, PEARL DIVER - 12/11/2022 3:09 PM EDT Physical Therapy Facility/Department: 7W Physical Therapy Daily Treatment Note NAME: Siobhan Haas : 1960 Date of Service: 12/11/2022 Discharge Recommendations: Facility based therapy PT Equipment Recommendations Equipment Needed: No Other: TBD Assessment Assessment: Pt limited by decreased functional use of LUE d/t increased shoulder pain on this admission. Pt required Min x1 to complete supine<-->sit and bridging to HOB. Pt able to scoot alongEOB and pre-slide board training. Pt encouraged to continue BLE ROM Ex to prevent contracture for Chi amputations. Pt would benefit from ongoing Facility based therapy post Disch Performance Deficits/Impairments: Decreased functional mobility , Decreased endurance, Decreased balance, Decreased ROM, Decreased posture Decision Making: Medium Complexity Requires PT Follow-Up: Yes Patient Diagnosis(es): The primary encounter diagnosis was Cellulitis of left lower extremity. A diagnosis of Surgical wound infection was also pertinent to this visit. 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 ([facility]) (07/27/2020), Asthma, Cellulitis, Constipation, Depression, Difficult intubation (12/04/2022), Fibromyalgia, GERD (gastroesophageal reflux disease), right BKA ([facility]) ([facility]), Hypertension, Morbidly obese ([facility]) ([facility]) (02/03/2019), On home O2, FAY treated with BiPAP, Osteoarthritis, Osteomyelitis of right foot ([facility]), Seasonal allergies, Shortness of breath, URSULA (stress urinary incontinence, female), and Vertigo. She has no past medical history of PONV (postoperative nausea and vomiting) or Prolonged emergence from general anesthesia. has [...] Foot surgery (Right, 04/08/2019); Other surgical history; [place] tooth extraction; Other surgical history (Right, 04/02/2019); Incontinence surgery (11/15/2015); Other surgical history (Right, 04/22/2019); Other surgical history (Right, 05/06/2019); orthopedic surgery (Right, 04/01/2019); Foot surgery (Right, 04/24/2019); Foot surgery (Left, 08/04/2021); Hysterectomy (1996); Tonsillectomy; andIncision and drainage of wound (Left, 11/21/2022). Restrictions Restrictions/Precautions Restrictions/Precautions: Fall Risk, Weight Bearing, General Precautions, Up as Tolerated Required Braces or Orthoses?: No Lower Extremity Weight Bearing Restrictions Right Lower Extremity Weight Bearing: Non Weight Bearing Left Lower Extremity Weight Bearing: Non Weight Bearing Upper Extremity Weight Bearing Restrictions Other: Pt has R BKA prosthesis at home. She does not currently have pumper gauger for RLE in hospital. PT asked pt to have someone bring in; concern is that with generalized edema pt may lose ability to don prosthesis. Pt does not care to use slide boards for transfers Position Activity Restriction Other position/activity restrictions: PIV, wound vac Vision/Hearing Subjective General Chart Reviewed: Yes Patient Assessed for Rehabilitation Services: Yes Additional Pertinent Hx: R BKA (prothesis does not currently fit) Response To Previous Treatment: Patient with no complaints from previous session. Family / Caregiver Present: No Diagnosis: L LE I&D of recent AKA. Follows Commands: Within Functional Limits General Comment Comments: PEARL DIVER wore mask, gloves during PT Rx. Pt is SEE TODAY per TCC Subjective Subjective: pt in bed, agreeable to PT. nsg cleared pt for PT. Pt notes L shoulder is still painful, but not as bad as last week. Pain Assessment Pain Assessment: (pt notes LUE pain w/ WB and pulling tasks) Cognition/Orientation Objective Bed mobility Bridging: Minimal assistance (to HOB; on left side d/t shoulder pain) Rolling to Left: Stand by assistance Rolling to Right: Stand by assistance Supine to Sit: Minimal assistance Sit to Supine: Minimal assistance Scooting: Minimal assistance (lateral scooting in bed) Comment: HOB flat; use of bed rail noted. Increased time to complete torso elevation d/t limited LUE use w/ supine->sit Transfers Sit to Stand: Unable to assess Stand to sit: Unable to assess Comment: Pt declined OOB at this time; PEARL DIVER interrupted nap, as Pt had CPAP donned upon arrival. Ambulation Ambulation: No Wheelchair Activities Wheelchair Parts Management: No Propulsion: No Balance Posture: Good Sitting - Static: Good, - Sitting - Dynamic: Fair, - Comments: Pt able to laterally scoot along EOB w/ cues for more efficient LUE use d/t increased pain w/ WB. Exercises Hip Flexion: x5 rep ea LE Hip Abduction: x5 rep + ADD BLE Knee Active Range of Motion: x5 rep RLE Comments: Pt still demonstrates good mobility at Chi hips and R knee; encoruaged to continue on own. Plan Times per Week: 3-5 Plan Weeks: 2 Specific Instructions for Next Treatment: functional balance and slide board training for w/c and drop arm BSC Current Treatment Recommendations: Strengthening, ROM, Balance Training, Functional Mobility Training, Transfer Training, Wheelchair Mobility Training, Endurance Training, Safety Education & Training, Patient/Caregiver Education & Training, Equipment Evaluation, Education, & procurement Plan Comment: focus on dynamic sitting balance and lateral transfers. Safety Safety Devices Safety Devices in Place: Yes Type of Devices: All fall risk precatuions in place, Call light within reach, Left in bed, Nurse notified Outcomes Score AM-PAC Score AM-PAC Inpatient Mobility Raw Score: 12 Mobility Inpatient CMS G-Code Modifier: CL Goals Encounter Problems Encounter Problems (Active) Balance Patient will maintain dynamic sitting balance modified [place] 8/10 (Progressing) Start: 12/06/22 Expected End: 12/20/22 Mobility Propel w/c 150', level surface, modif indep including managing doorways and 90- deg turns Transfers Patient will perform bed mobility with modified independence in order to improve independence and prepare for out of bed mobility. (Progressing) Start: 12/06/22 Expected End: 12/20/22 OK to use siderail to roll, but would like to see supine to long sit or sitting EOB with adjusting HOB Transfers Patient will complete functional transfer lateral transfer supv (Not Progressing) Start: 12/06/22 Expected End: 12/20/22 1) modif indep bed to recliner 2) supv bed to either w/c or BSC (will coordinate with OT re: goals of clothing management) Education Education Given To: Patient Education Provided: Goals, Plan of Care, Home Exercise Program, Functional Mobility Training Education Provided Comments: encouraged sidelying L hip extn. If possible, prone Education Method: Verbal Barriers to Learning: None Education Outcome: Verbalized understanding, Continued education needed Skilled Clinical Factors: ordered from DMT drop arm BSC-would like to pt perform transfers with staff as opposed to using bed garcia. Provided theraband for UEs. Provided mesh netting as pt wants to attempt to simulate what she would do at home for toileting (plan is she will wear pads, not Depends; and likely dresses as opposed to pants). Therapy Time Individual Co-treatment Time In 1430 Time Out 1442 Minutes 12 Timed Code Treatment Minutes: 12 Minutes (FA x1) Teresa Sandoval PTA * Joanna Sandoval PA-C - 12/11/2022 2:47 PM EDT Orthopedic Surgery progress note Final ID recommendations made. Okay for dc from ortho perspective. Orthopaedic surgery will sign off. Please page manager acquisition orthopaedic resident for questions or concerns. * Cristian Maxwell DO - 12/11/2022 1:47 PM EDT Images from the original note were not included. [facility] - Infectious Diseases Attending Progress Note Subjective: Following for cellulitis/OM of L AKA stump site. Pt reports improvement in leg pain. She denies f/c, n/v/d, SOB, cough, or abdominal pain. No further complaints at this time. Vital signs- WNL Lab data- No CBC from today Antimicrobial therapy- vancomycin, meropenem Micro reports- L knee CXs NGTD Discharge planning- TBD Code- FULL Objective: Vitals: Patient Vitals for the past 24 hrs: BP Temp Temp src Pulse Resp SpO2 12/11/22 0626 133/84 36 C (96.8 F) Temporal 82 20 94 % Physical Exam Constitutional: General: She is not in acute distress. Appearance: Normal appearance. She is normal weight. She is not ill-appearing, toxic-appearing or diaphoretic. HENT: Head: Normocephalic and atraumatic. Nose: Nose normal. Mouth/Throat: Mouth: Mucous membranes are moist. Pharynx: Oropharynx is clear. No oropharyngeal exudate or posterior oropharyngeal erythema. Eyes: General: No scleral icterus. Extraocular Movements: Extraocular movements intact. Pupils: Pupils are equal, round, and reactive to light. Cardiovascular: Rate and Rhythm: Normal rate and regular rhythm. Pulses: Normal pulses. Heart sounds: Normal heart sounds. No murmur heard. No friction rub. No gallop. Pulmonary: Effort: Pulmonary effort is normal. No respiratory distress. Breath sounds: No wheezing, rhonchi or rales. Comments: Diminished breath sounds b/l Prolonged expiratory phase Abdominal: General: Abdomen is flat. Bowel sounds are normal. Palpations: Abdomen is soft. Tenderness: There is no abdominal tenderness. There is no guarding or rebound. Musculoskeletal: General: Swelling, tenderness, deformity and signs of injury present. Cervical back: Neck supple. Comments: s/p R BKA s/p L AKA LLE AKA site w/ erythema, swelling Wound VAC in place Skin: General: Skin is warm and dry. Capillary Refill: Capillary refill takes less than 2 seconds. Coloration: Skin is not pale. Findings: Erythema and lesion present. No rash. Neurological: General: No focal deficit present. Mental Status: She is alert. Psychiatric: Mood and Affect: Mood normal. Judgment: Judgment normal. Labs: Lab Results Component Value Date/Time NA 142 12/07/2022 0144 K 4.0 12/07/2022 0144 CL 107 12/07/2022 0144 CO2 29 12/07/2022 0144 BUN 19 (H) 12/07/2022 0144 CREATININE 0.58 12/10/2022 0553 CREATININE 0.70 02/14/2022 0918 GLUCOSE 123 (H) 12/07/2022 0144 CALCIUM 8.5 12/07/2022 0144 PROT 7.1 02/01/2022 0426 BILITOT 0.4 02/01/2022 0426 ALKPHOS 80 02/01/2022 0426 AST 31 02/01/2022 0426 PROCAL 0.04 12/04/2022 0149 PROCAL 0.02 11/11/2022 0301 PROCAL 1.77 (H) 01/25/2022 0618 Lab Results Component Value Date/Time WBC 6.8 12/07/2022 014 HGB 8.9 (L) 12/07/2022 014 HCT 28.2 (L) 12/07/2022 014 PLT 307 12/07/20224 GRANULOCYTES 66.9 02/14/2022 0918 LYMPHOPCT 23.5 12/07/2022143 MONOPCT 11.7 (H) 12/07/2022 014 LABEOS 3.5 02/14/2022 0918 BASOPCT 0.8 12/07/2022 014 NEUTROABS 4.3 12/07/2022 014 Micro: 11/16 L tissue thigh CXs (+) for E fecalis, E cloacae, B fragilis 11/20 Occult blood x 1, stool (-) 11/22 Blood CX x2 NGTD 12/03 Blood CX x2 NGTD 12/03 L tissue thigh CX (+) for GPC Lines/Drains/Airways: 12/03 RUE PIV Radiography/Echo/Other: 12/03 XR knee 1/2V L Cortical irregularity identified about the distal femoral stem concerning for osteomyelitis, clinical correlation is recommended 12/03 XR femur L 2+V No evidence of acute osseous abnormality 12/03 XR shoulder 2+V L Degenerative changes Antimicrobials, Start/End Dates: 12/03-12/05 piperacillin/tazobactam 12/03-12/05 clindamycin 12/03- vancomycin 12/05 meropenem Impression: Ms. Haas is a 62 y/o F w/ PMH of LLE NF s/p debridement and L AKA, R BKA, COPD/asthma on home O2, prior b/l PE 08/2022 (AC on apixaban), FAY on BIPAP, GERD, HTN, OA, depression, fibromyalgia. Presented to [facility] ED 12/03 w/ severe pain and erythema of the LLE stump. Recently underwent L AKA 10/31 w/ multiple subsequent I&Ds, w/ the most recent on 11/21/22. Seen by [facility] ID service at the time;was tx'd for 2w for SSI of stump site. CXs from the previous debridement were (+) for E cloacae, E fecalis. Was tx'd w/ meropenem. After completion of IV therapy, she noticed increasing drainage and erythema from the area. XR of the LE showed cortical irregularity identified about the distal femoral stem concerning for OM. S/p debridement by ortho; Cxs pending. The ID service is following for cellulitis/OM of L AKA stump site. Plan: 1. Osteomyelitits of the left lower extremity - Patient presented w/ erythema, swelling, drainage of L AKA stump - XR on presentation shows signs consistent with osteomyelitis - s/p debridement by ortho 12/05; CXs show NGTD - Will switch to IV daptomycin + meropenem in anticipation of d/c - OPAT form created, end date 01/16/23 - No opposition to d/c from ID standpoint 2. Hx of LLE infection s/p L AKA 3. Chronic obstructive pulmonary disease- on home O2 4. Obstructive sleep apnea- on BiPAP 5. Prior b/l PE 08/2022- AC on apixaban 6. Hx of R foot OM s/p R BKA 7. Gastroesophageal reflux disease 8. Stress urinary incontinence 9. Hypertension 10. Osteoarthritis 11. Seasonal allergies 12. Vertigo 13. Asthma 14. Depression 15. Fibromyalgia 16. Obesity Recommendations: 1. Will switch to IV daptomycin + meropenem in anticipation of d/c 2. OPAT form created, end date 01/16/23 3. No opposition to d/c from ID standpoint The ID service will sign off; feel free to call back with any further questions/concerns. Total time 35 minutes on this day of encounter includes counseling, coordinating plan of care, record and documentation review before and after visit including documentation and time not explicitly included on EMR time stamp for accounting for open encounter. Cristian Maxwell DO [facility] Infectious Diseases Office Tel. [phone] * Art Shearer MD - 12/11/2022 12:12 PM EDT Images from the original note were not included. Hospitalist Progress Note 12/11/2022 12:12 PM [id number]: Please page me for patient care issues. [phone]: Please page IMS night Hospitalist for any issues. Subjective: Admit Date: 12/03/2022 PCP: Oj Maddox Room#: W7-726/W7-726 A Interval History: Patient seen and examined No new event overnight 62-year-old female with past medical history of morbid obesity, OHS/FAY on BiPAP, previous right below-knee amputation, left above-knee amputation done in October of this year, history of pulm embolism/DVT, COPD/asthma, vitamin D deficiency, GERD, peripheral neuropathy, history of depression, fibromyalgia Admitted following left stump redness/drainage of pus from left above-knee amputation stump . Work-up during this admission showed x-ray of left knee/femur-Cortical irregularity identified about the distal femoral stem concerning for osteomyelitis, clinical correlation is recommended., Creatinine 0.5, troponin negative, hemoglobin 8.9 Lactic acid 1.2, Pro-Sarah 0.04, CRP 23, ESR 62 Blood cultures negative. Patient was treated for left thigh/above-knee amputation stump abscess, status post #1 Incision anddrainage abscess Left thigh/AKA (Wound dimensions: Length medial to lateral: 12 cm, Width anterior to posterior: 3 cm, Depth: 4 cm , Application wound VAC, wound <50 sq cm left thigh/AKA done on 12/05/2022. Patient is on IV meropenem/vancomycin. Infectious disease team following. She was also complaining of left shoulder pain, x-ray of left shoulder consistent with osteoarthritis. Pain in left leg controlled at rest Denies any chest pain, shortness of breath, cough No nausea, vomiting, abdominal pain Had bowel movement today No fever spike noted Rest of review of 10 system done was negative, positive findings as documented in HPI Past medical history : 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 ([facility]) 07/27/2020 Asthma Cellulitis Constipation Depression Difficult intubation 12/04/2022 Fibromyalgia GERD (gastroesophageal reflux disease) Hx of right BKA ([facility]) ([facility]) Hypertension Morbidly obese ([facility]) ([facility]) 02/03/2019 BMI 50.52 On home O2 FAY treated with BiPAP Osteoarthritis Osteomyelitis of right foot ([facility]) SCHEDULED FOR THE SURGERY ON 02/11/2019 Seasonal allergies Shortness of breath URSULA (stress urinary incontinence, female) Vertigo Adult diet Regular @[email or web address]@ Medications: amitriptyline, 100 mg, Oral, Nightly citalopram, 20 mg, Oral, Daily enoxaparin, 40 mg, SubCUTAneous, Daily gabapentin, 300 mg, Oral, Nightly heparin flush, 250 Units, IntraCATHeter, q12h Lidocaine, 1 patch, TransDERmal, Daily meropenem, 2,000 mg, IntraVENous, q8h methocarbamol, 750 mg, Oral, 3 times per day miconazole, , Topical, BID mometasone-formoterol, 2 puff, Inhalation, BID pantoprazole, 40 mg, Oral, qAM AC polyethylene glycol (PEG) 3350, 17 g, Oral, Daily senna-docusate sodium, 2 tablet, Oral, Nightly sodium chloride 0.9%, 10 mL, IntraCATHeter, q12h tiotropium, 1 capsule, Inhalation, Daily vancomycin, 1,500 mg, IntraVENous, q12h LABS: CBC: No results for input(s): WBC, RBC, HGB, HCT, MCV, RDW, PLT in the last 72 hours. BMP: Recent Labs 12/10/22 0553 CREATININE 0.58 LIVER PROFILE:No results for input(s): AST, ALT, BILITOT, ALKPHOS, PROT in the last 72 hours. No lab exists for component: LABALBU PT/INR: No results for input(s): PROTIME, INR in the last 72 hours. CARDIAC ENZYMES: No results for input(s): TROPONINI in the last 72 hours. Procalcitonin: No results found for: PROCAL XR chest 1 view Result Date: 11/22/2022 Impression: 1. Left arm PICC line as described. The distal tip is in the SVC. 2. No focal infiltrates. Report Dictated on Electronically Signed By: Rusty Brenner Electronically Signed Date/Time: 11/22/2022 4:51 PM EST Objective: Vitals: BP 133/84 (BP Location: Left arm, Patient Position: Lying) Pulse 82 Temp 36 C (96.8 F) (Temporal) Resp 20 Ht 5' 7 (1.702 m) Wt (!) 339 lb 3.2 oz (154 kg) SpO2 94% BMI 53.13 kg/m Pulse Ox: SpO2 Av % Min: 94 % Max: 94 % Supplemental O2: O2 Flow Rate (L/min): 2 L/min General appearance: No apparent distress, HEENT: Eyes: No scleral icterus Pallor noted Morbid obese female Oral: Tongue is semi-moist Cardiovascular: S1S2 heard, RRR Respiratory: Clear to auscultation bilaterally anteriorly Abdomen: Soft, non-tender, non-distended with normal bowel sounds. Neurology- Awake alert, appears comfortable Extremity-right below-knee amputation noted Left above-knee amputation/wound VAC noted Assessment Left thigh/above-knee amputation stump abscess status post incision and drainage of abscess/wound VAC application done on 12/05/2022 History of osteomyelitis of left lower extremity status post previous above-knee amputation done inJanuary 2022 Left shoulder osteoarthritis Anemia Debility Chronic issue- Morbid obesity OHS/AFY secondary to on nocturnal BiPAP Right below-knee amputation History of DVT/pulm embolism COPD/bronchial asthma stable Vitamin D deficiency GERD Peripheral neuropathy Fibromyalgia Plan Orthopedics team recommendation noted Infectious disease team following, continue antibiotic as ordered PT/OT recommendation noted Continue inhaler treatment for asthma We will discuss with orthopedics team regarding starting back on Eliquis. Patient currently on Lovenox subcu for DVT prophylaxis On GI prophylaxis for GERD Continue rest of medication as ordered Labs for a.m. Check iron profile Continue nocturnal BiPAP for FAY Patient was informed about all work up and treatment plan Advance Directive: Full Code Discharge planning: NOTE: This report was transcribed using voice recognition software. Every effort was made to ensureaccuracy; however, inadvertent computerized telecommunications administrator errors may be present. Art Shearer MD Division of Hospitalist Medicine Acute [facility] Addendum Message from orthopedics resident-- patient okay to be started back on Eliquis * Evatom Lane, OT - 12/11/2022 11:50 AM EDT Occupational Therapy Facility/Department: W Occupational Therapy Treatment NAME: Siobhan Haas : 1960 Date of Service: 12/11/2022 Discharge Recommendations: Subacute/Intermediate Facility Assessment Performance deficits / Impairments: Decreased functional mobility , Decreased safe awareness, Decreased balance, Decreased coordination, Decreased ADL status, Decreased endurance, Decreased high-level IADLs, Decreased strength Assessment: Pt presents with the above deficits and requires min assist with bed mobility, SBA withstatic sitting balance, and assist with ADL's. Pt would benefit from continued therapies to maximize potential. Recommend SNF level therapies at discharge. Prognosis: Fair REQUIRES OT FOLLOW-UP: Yes Patient Diagnosis(es): The primary encounter diagnosis was Cellulitis of left lower extremity. A diagnosis of Surgical wound infection was also pertinent to this visit. 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 ([facility]) (07/27/2020), Asthma, Cellulitis, Constipation, Depression, Difficult intubation (12/04/2022), Fibromyalgia, GERD (gastroesophageal reflux disease), right BKA ([facility]) ([facility]), Hypertension, Morbidly obese ([facility]) ([facility]) (02/03/2019), On home O2, FAY treated with BiPAP, Osteoarthritis, Osteomyelitis of right foot ([facility]), Seasonal allergies, Shortness of breath, URSULA (stress urinary incontinence, female), and Vertigo. She has no past medical history of PONV (postoperative nausea and vomiting) or Prolonged emergence from general anesthesia. has [...] Foot surgery (Right, 04/08/2019); Other surgical history; [place] tooth extraction; Other surgical history (Right, 04/02/2019); Incontinence surgery (11/15/2015); Other surgical history (Right, 04/22/2019); Other surgical history (Right, 05/06/2019); orthopedic surgery (Right, 04/01/2019); Foot surgery (Right, 04/24/2019); Foot surgery (Left, 08/04/2021); Hysterectomy (1996); Tonsillectomy; andIncision and drainage of wound (Left, 11/21/2022). Restrictions Restrictions/Precautions Restrictions/Precautions: Fall Risk, Weight Bearing, General Precautions, Up as Tolerated Required Braces or Orthoses?: No Lower Extremity Weight Bearing Restrictions Right Lower Extremity Weight Bearing: Non Weight Bearing Left Lower Extremity Weight Bearing: Non Weight Bearing Position Activity Restriction Other position/activity restrictions: PIV, wound vac Cognition/Orientation Overall Cognitive Status: WFL Overall Orientation Status: Within Functional Limits Subjective Subjective Subjective: Patient supine in bed. Patient reluctantly agreeable to therapy treatment. Patient not wanting to do too much as patient was fatigued. Objective Balance Sitting Balance: Stand by assistance Bed mobility Supine to Sit: Contact guard assistance Sit to Supine: Minimal assistance Scooting: Minimal assistance Comment: HOB elevated; use of bed rail. Increased time for completion. Patient requiring bilateral UE support until balance is achieved. Patient min A for scooting toward HOB using BUE to lift up bottom. Patient not able to completely clear bottom but able to functional scoot. Transfers Sit to stand: Unable to assess Stand to sit: Unable to assess Transfer Comments: Patient declined transfers this date. Plan Times per Week: 3-5 Plan Weeks: 4 weeks Current Treatment Recommendations: Safety Education & Training, Balance Training, Patient/Caregiver Education & Training, Self-Care / ADL, Functional Mobility Training, Home Management Training, Endurance Training Safety Safety Devices in place: Yes Type of devices: All fall risk precautions in place, Call light within reach, Patient at risk for falls, Left in bed, Nurse notified Restraints Initially in place: No AM-PAC Score AM-PAC Inpatient Daily Activity Raw Score: 15 ADL Inpatient CMS G-Code Modifier: CK Goals Encounter Problems Encounter Problems (Active) Balance Static sitting balance at EOB during bilateral UE task x 2-3 mins with supervision. (Progressing) Start: 12/09/22 Expected End: 01/05/23 Dressings Lower Extremities Don underwear, shorts, or pants bedlevel with supervision. (Progressing) Start: 12/09/22 Expected End: 01/05/23 Transfers Drop arm BSC transfer with supervision. (Progressing) Start: 12/09/22 Expected End: 01/05/23 Education Education Given To: Patient Education Provided: OT Role, Plan of Care Education Method: Verbal Barriers to Learning: None Education Outcome: Verbalized understanding Therapy Time Individual Co-treatment Time In 1140 Time Out 1150 Minutes 10 Timed Code Treatment Minutes: 10 Minutes (FA- 1) Goals and/or treatment plan was established in collaboration with patient/family/other representatives. Patient's Occupational Therapy Plan of Care [facility]. This provider wore surgical mask and gloves during entire treatment session. Eva Lane MS, OTR/L * Dorina Thompson RN - 12/11/2022 10:30 AM EDT Images from the original note were not included. Wound care in to change wound vac dressing to L AKA wound. Pt already received PO pain medication prior to dressing change. Old wound vac dressing soaked with saline and removed without difficulties. Removed 1 piece of white foam, 1 piece of black foam. Full thickness surgical wound along L AKA. For wound measurements please see wound care note from 12/06. Wound bed 100% red tissue with granulation buds noted. Moderate amount of serosang drainage. No purulence or active bleeding noted. Periwound tissue intact, no erythema or induration noted. Wound and periwound cleansed with saline, patted dry and cavilon no sting applied to periwound. Coloplast strip paste applied along edges to help maintain dressing seal. White foam x1 piece placed in base, tucked within tunneling at 9 oclock, then topped with black foam x1 piece. Trac pad bridged to anterior portion on L residual limb. Dressing well sealed. NPWT pressure set to -125mmHg continuous per order. Pt tolerated dressing change well. Wound Care to follow up with pt for wound vac dressing changes. For any concerns, page Wound Care Team at #[phone], or message [facility] Wound Vac group on Secure Chat. * Jose Chávez MD - 12/10/2022 11:16 AM EDT Images from the original note were not included. Hospitalist Progress Note 12/10/2022 11:16 AM Subjective: Admit Date: 12/03/2022 PCP: Oj Maddox Ms. Haas is a 62 y/o F w/ PMH of LLE NF s/p debridement and L AKA, R BKA, COPD/asthma on home O2, prior b/l PE 08/2022 (AC on apixaban), FAY on BIPAP, GERD, HTN, OA, depression, fibromyalgia. Presented to [facility] ED 12/03 w/ severe pain and erythema of the LLE stump. Recently underwent L AKA 10/31 w/ multiple subsequent I&Ds, w/ the most recent on 11/21/22. Seen by [facility] ID service at the time;was tx'd for 2w for SSI of stump site. CXs from the previous debridement were (+) for E cloacae, E fecalis. Was tx'd w/ meropenem. After completion of IV therapy, she noticed increasing drainage and erythema from the area. XR of the LE showed cortical irregularity identified about the distal femoral stem concerning for OM. S/p debridement by ortho Interval History: pt feels better No new issues Resting in bed Adult diet Regular @[email or web address]@ @[id number]@ Medications: amitriptyline, 100 mg, Oral, Nightly budesonide, 0.5 mg, Nebulization, Daily citalopram, 20 mg, Oral, Daily enoxaparin, 40 mg, SubCUTAneous, Daily gabapentin, 300 mg, Oral, Nightly heparin flush, 250 Units, IntraCATHeter, q12h Lidocaine, 1 patch, TransDERmal, Daily meropenem, 2,000 mg, IntraVENous, q8h methocarbamol, 750 mg, Oral, 3 times per day mometasone-formoterol, 2 puff, Inhalation, BID pantoprazole, 40 mg, Oral, qAM AC polyethylene glycol (PEG) 3350, 17 g, Oral, Daily senna-docusate sodium, 2 tablet, Oral, Nightly sodium chloride 0.9%, 10 mL, IntraCATHeter, q12h tiotropium, 1 capsule, Inhalation, Daily vancomycin, 1,500 mg, IntraVENous, q12h No results for input(s): WBC, HGB, PLT in the last 72 hours. Recent Labs 12/10/22 0553 CREATININE 0.58 No results for input(s): AST, ALT, BILITOT, ALKPHOS in the last 72 hours. No lab exists for component: ALB No results found for: TRIG, HDL, LDLCALC, CHOL No results for input(s): INR in the last 72 hours. No results for input(s): CKTOTAL, CKMB, TROPONINI in the last 72 hours. Objective: Vitals: BP 138/70 Pulse 84 Temp 36.3 C (97.3 F) (Temporal) Resp 18 Ht 5' 7 (1.702 m) Wt (!) 339 lb 3.2 oz (154 kg) SpO2 91% BMI 53.13 kg/m Pulse Ox: SpO2 Av.5 % Min: 91 % Max: 96 % Supplemental O2: O2 Flow Rate (L/min): 2 L/min General appearance: Alert and cooperative with exam Lungs: clear to auscultation bilaterally Heart: regular rate and rhythm Abdomen: soft, non-tender; bowel sounds normal; no masses, no organomegaly Extremities: B amputations LE noted LLE wound vac Neurologic: No obvious focal neurologic deficits. Assessment Principal Problem: Cellulitis of left lower extremity Active Problems: Surgical wound infection HLD (hyperlipidemia) Difficult intubation History of right below knee amputation (HCC) HTN (hypertension) Pansystolic murmur Obstructive sleep apnea syndrome Gastroesophageal reflux disease Cont abx for now--ID following--PICC in place for mcfp abx Cont supportive care S/p I&D LE wound Cont home meds otherwise Shoulder XR degenerative changes only Continue to work on facility to accept vs home care agency--dc once arranged See orders, continue POC Advance Directive: Full Code Jose Chávez MD, [facility] Hospitalist * Kierra Enamorado, OT - 12/09/2022 2:11 PM EST Occupational Therapy Facility/Department: Room: [facility] Occupational Therapy Initial Evaluation NAME: Siobhan Haas : 1960 Date of Service: 12/09/2022 Discharge Recommendations: Subacute/Intermediate Facility Assessment Performance deficits / Impairments: Decreased functional mobility , Decreased safe awareness, Decreased balance, Decreased coordination, Decreased ADL status, Decreased endurance, Decreased high-level IADLs, Decreased strength Assessment: Pt presents with the above deficits and requires min assist with bed mobility, SBA withstatic sitting balance, and assist with ADL's. Pt would benefit from continued therapies to maximize potential. Recommend SNF level therapies at discharge. Prognosis: Fair Decision Making: Medium Complexity REQUIRES OT FOLLOW-UP: Yes Activity Tolerance Activity Tolerance: Patient Tolerated treatment well, Patient limited by fatigue, Patient limited by pain Patient Diagnosis(es): The primary encounter diagnosis was Cellulitis of left lower extremity. A diagnosis of Surgical wound infection was also pertinent to this visit. 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 ([facility]) (07/27/2020), Asthma, Cellulitis, Constipation, Depression, Difficult intubation (12/04/2022), Fibromyalgia, GERD (gastroesophageal reflux disease), right BKA ([facility]) ([facility]), Hypertension, Morbidly obese ([facility]) ([facility]) (02/03/2019), On home O2, FAY treated with BiPAP, Osteoarthritis, Osteomyelitis of right foot ([facility]), Seasonal allergies, Shortness of breath, URSULA (stress urinary incontinence, female), and Vertigo. She has no past medical history of PONV (postoperative nausea and vomiting) or Prolonged emergence from general anesthesia. has [...] Foot surgery (Right, 04/08/2019); Other surgical history; [place] tooth extraction; Other surgical history (Right, 04/02/2019); Incontinence surgery (11/15/2015); Other surgical history (Right, 04/22/2019); Other surgical history (Right, 05/06/2019); orthopedic surgery (Right, 04/01/2019); Foot surgery (Right, 04/24/2019); Foot surgery (Left, 08/04/2021); Hysterectomy (1996); Tonsillectomy; andIncision and drainage of wound (Left, 11/21/2022). Restrictions Restrictions/Precautions Restrictions/Precautions: Fall Risk, Weight Bearing, General Precautions Required Braces or Orthoses?: No Lower Extremity Weight Bearing Restrictions Left Lower Extremity Weight Bearing: Non Weight Bearing Vision/Hearing Vision: (Pt wears reading glasses.) Cognition/Orientation Overall Cognitive Status: WFL Overall Orientation Status: (Ox3) Subjective General Chart Reviewed: Yes Patient Assessed for Rehabilitation Services: Yes Family / Caregiver Present: No Diagnosis: Left LE cellulitis Subjective Subjective: Pt in bed. (+)wound vac to left residual limb Pt reluctant, but agreeable to OT. General Comments Comments: Pt presents with redness & drainage from left residual limb. S/P left AKA on 10.31.22. Pain Assessment Pain Assessment: (Left shoulder 04/09) Social/Functional History Social/Functional History Lives With: (Son (works) & Sister (doesn't work)) Type of Home: House Home Layout: One level Home Access: Ramped entrance Bathroom Toilet: Standard Home Equipment: (Electric hoverround and manual wc, sliding board) Additional Comments: Supervision with sponge bath. Supervision with UE dressing. Share cooking. Assist with cleaning & laundry. Transfers with supervision (doesn't like to use sliding board). Objective Strength: (Bilateral UE's: 4/5) Coordination: (Bilateral opposition WFL) Tone: Normal Sensation: (Pt denies any numbness & tingling in bilateral UE's. Intact to light touch.) Balance Sitting Balance: (Good - Static sitting balance at EOB with SBA with UE support.) Bed mobility Supine to Sit: Supervision Sit to Supine: Minimal assistance Scooting: Minimal assistance Transfers Transfer Comments: Boost up to HOB with dep x 2. LUE AROM (degrees) LUE AROM : (shoulder flex to 90, elbow distally WFL) RUE AROM (degrees) RUE AROM : WFL Plan Times per Week: 3-5x/wk Plan Weeks: 4 weeks Current Treatment Recommendations: Safety Education & Training, Balance Training, Patient/Caregiver Education & Training, Self-Care / ADL, Functional Mobility Training, Home Management Training, Endurance Training Safety Safety Devices in place: Yes Type of devices: All fall risk precautions in place, Call light within reach, Patient at risk for falls, Left in bed, Nurse notified Restraints Initially in place: No AM-PAC Score AM-PAC Inpatient Daily Activity Raw Score: 14 ADL Inpatient [facility] G-Code Modifier: CK Goals Encounter Problems Encounter Problems (Active) Balance Static sitting balance at EOB during bilateral UE task x 2-3 mins with supervision. Start: 12/09/22 Expected End: 01/05/23 Dressings Lower Extremities Don underwear, shorts, or pants bedlevel with supervision. Start: 12/09/22 Expected End: 01/05/23 Transfers Drop arm BSC transfer with supervision. Start: 12/09/22 Expected End: 01/05/23 Education Education Given To: Patient Education Provided: OT Role, Transfer Training, Plan of Care Education Method: Verbal Barriers to Learning: None Education Outcome: Verbalized understanding, Demonstrated understanding, Continued education needed Therapy Time Individual Co-treatment Time In 1340 Time Out 1354 Minutes 14 Goals and/or treatment plan was established in collaboration with patient/family/other representatives. Patient's Occupational Therapy Plan of Care supervision is transferred to [facility] Occupational Therapist. This provider wore a surgical mask and gloves for the duration of the session with this pt. Kierra Enamorado MS, OTR/L * Jose Chávez MD - 12/09/2022 10:49 AM EST Images from the original note were not included. Hospitalist Progress Note 12/09/2022 10:49 AM Subjective: Admit Date: 12/03/2022 PCP: Oj Maddox Interval History: pt feels better No new issues Resting in bed Adult diet Regular @IODETAILS@ @[email or web address]@ Medications: amitriptyline, 100 mg, Oral, Nightly budesonide, 0.5 mg, Nebulization, Daily citalopram, 20 mg, Oral, Daily enoxaparin, 40 mg, SubCUTAneous, Daily gabapentin, 300 mg, Oral, Nightly heparin flush, 250 Units, IntraCATHeter, q12h Lidocaine, 1 patch, TransDERmal, Daily meropenem, 2,000 mg, IntraVENous, q8h methocarbamol, 750 mg, Oral, 3 times per day mometasone-formoterol, 2 puff, Inhalation, BID pantoprazole, 40 mg, Oral, qAM AC polyethylene glycol (PEG) 3350, 17 g, Oral, Daily senna-docusate sodium, 2 tablet, Oral, Nightly sodium chloride 0.9%, 10 mL, IntraCATHeter, q12h tiotropium, 1 capsule, Inhalation, Daily vancomycin, 1,500 mg, IntraVENous, q12h Recent Labs 12/07/22 0144 WBC 6.8 HGB 8.9* PLT 307 Recent Labs 12/07/22 0144 NA 142 K 4.0 CL 107 CO2 29 BUN 19* CREATININE 0.66 GLUCOSE 123* No results for input(s): AST, ALT, BILITOT, ALKPHOS in the last 72 hours. No lab exists for component: ALB No results found for: TRIG, HDL, LDLCALC, CHOL No results for input(s): INR in the last 72 hours. Recent Labs 12/07/22 0904 TROPONINI <0.012 Objective: Vitals: BP (!) 142/77 (BP Location: Left arm, Patient Position: Lying) Pulse 101 Temp 36 C (96.8 F) (Temporal) Resp 16 Ht 5' 7 (1.702 m) Wt (!) 339 lb 3.2 oz (154 kg) SpO2 94% BMI 53.13 kg/m Pulse Ox: SpO2 Av % Min: 94 % Max: 96 % Supplemental O2: O2 Flow Rate (L/min): 2 L/min General appearance: Alert and cooperative with exam Lungs: clear to auscultation bilaterally Heart: regular rate and rhythm Abdomen: soft, non-tender; bowel sounds normal; no masses, no organomegaly Extremities: B amputations LE noted LLE wound vac Neurologic: No obvious focal neurologic deficits. Assessment Principal Problem: Cellulitis of left lower extremity Active Problems: Surgical wound infection HLD (hyperlipidemia) Difficult intubation History of right below knee amputation (HCC) HTN (hypertension) Pansystolic murmur Obstructive sleep apnea syndrome Gastroesophageal reflux disease Cont abx for now--ID following--PICC in place S/p I&D Cont home meds otherwise Shoulder XR degenerative changes only--ortho did order ECG--no acute changes Pt somewhat vague abut if she would accept placement after this admit. Will cont to discuss with ptand TCC Continue to work on facility to accept vs home care agency See orders, continue POC Advance Directive: Full Code Jose Chávez MD, [facility] Hospitalist * Cristian Maxwell DO - 12/08/2022 4:21 PM EST Images from the original note were not included. [facility] - Infectious Diseases Attending Progress Note Subjective: Following for cellulitis/OM of L AKA stump site. Pt reports improvement in leg pain. She denies f/c, n/v/d, SOB, cough, or abdominal pain. No further complaints at this time. Vital signs- RR 22 Lab data- No CBC from today Antimicrobial therapy- vancomycin, meropenem Micro reports- L knee CXs pending Discharge planning- TBD Code- FULL Objective: Vitals: Patient Vitals for the past 24 hrs: BP Temp Temp src Pulse Resp SpO2 12/08/22 0802 -- -- -- 84 20 95 % 12/08/22 0524 137/85 36.4 C (97.5 F) Temporal 82 22 95 % Physical Exam Constitutional: General: She is not in acute distress. Appearance: Normal appearance. She is normal weight. She is not ill-appearing, toxic-appearing or diaphoretic. HENT: Head: Normocephalic and atraumatic. Nose: Nose normal. Mouth/Throat: Mouth: Mucous membranes are moist. Pharynx: Oropharynx is clear. No oropharyngeal exudate or posterior oropharyngeal erythema. Eyes: General: No scleral icterus. Extraocular Movements: Extraocular movements intact. Pupils: Pupils are equal, round, and reactive to light. Cardiovascular: Rate and Rhythm: Normal rate and regular rhythm. Pulses: Normal pulses. Heart sounds: Normal heart sounds. No murmur heard. No friction rub. No gallop. Pulmonary: Effort: Pulmonary effort is normal. No respiratory distress. Breath sounds: No wheezing, rhonchi or rales. Comments: Diminished breath sounds b/l Prolonged expiratory phase Abdominal: General: Abdomen is flat. Bowel sounds are normal. Palpations: Abdomen is soft. Tenderness: There is no abdominal tenderness. There is no guarding or rebound. Musculoskeletal: General: Swelling, tenderness, deformity and signs of injury present. Cervical back: Neck supple. Comments: s/p R BKA s/p L AKA LLE AKA site w/ erythema, swelling Wound VAC in place Skin: General: Skin is warm and dry. Capillary Refill: Capillary refill takes less than 2 seconds. Coloration: Skin is not pale. Findings: Erythema and lesion present. No rash. Neurological: General: No focal deficit present. Mental Status: She is alert. Psychiatric: Mood and Affect: Mood normal. Judgment: Judgment normal. Labs: Lab Results Component Value Date/Time NA 142 12/07/2022143 K 4.0 12/07/2022143 CL 107 12/07/2022143 CO2 29 12/07/2022143 BUN 19 (H) 12/07/2022143 CREATININE 0.66 12/07/2022 014 CREATININE 0.70 02/14/2022 0918 GLUCOSE 123 (H) 12/07/2022143 CALCIUM 8.5 12/07/2022143 PROT 7.1 02/01/2022 0426 BILITOT 0.4 02/01/2022 0426 ALKPHOS 80 02/01/2022 0426 AST 31 02/01/2022 0426 PROCAL 0.04 12/04/2022 0149 PROCAL 0.02 11/11/2022 0301 PROCAL 1.77 (H) 01/25/2022 0618 Lab Results Component Value Date/Time WBC 6.8 12/07/2022143 HGB 8.9 (L) 12/07/2022 014 HCT 28.2 (L) 12/07/2022143 PLT 307 12/07/2022143 GRANULOCYTES 66.9 02/14/2022917 LYMPHOPCT 23.5 12/07/2022143 MONOPCT 11.7 (H) 12/07/2022143 LABEOS 3.5 02/14/2022917 BASOPCT 0.8 12/07/2022143 NEUTROABS 4.3 12/07/20224 Micro: 11/16 L tissue thigh CXs (+) for E fecalis, E cloacae, B fragilis 11/20 Occult blood x 1, stool (-) 11/22 Blood CX x2 NGTD 12/03 Blood CX x2 NGTD 12/03 L tissue thigh CX (+) for GPC Lines/Drains/Airways: 12/03 RUE PIV Radiography/Echo/Other: 12/03 XR knee 1/2V L Cortical irregularity identified about the distal femoral stem concerning for osteomyelitis, clinical correlation is recommended 12/03 XR femur L 2+V No evidence of acute osseous abnormality 12/03 XR shoulder 2+V L Degenerative changes Antimicrobials, Start/End Dates: 12/03-12/05 piperacillin/tazobactam 12/03-12/05 clindamycin 12/03- vancomycin 12/05 meropenem Impression: Ms. Haas is a 62 y/o F w/ PMH of LLE NF s/p debridement and L AKA, R BKA, COPD/asthma on home O2, prior b/l PE 08/2022 (AC on apixaban), FAY on BIPAP, GERD, HTN, OA, depression, fibromyalgia. Presented to [facility] ED 12/03 w/ severe pain and erythema of the LLE stump. Recently underwent L AKA 10/31 w/ multiple subsequent I&Ds, w/ the most recent on 11/21/22. Seen by [facility] ID service at the time;was tx'd for 2w for SSI of stump site. CXs from the previous debridement were (+) for E cloacae, E fecalis. Was tx'd w/ meropenem. After completion of IV therapy, she noticed increasing drainage and erythema from the area. XR of the LE showed cortical irregularity identified about the distal femoral stem concerning for OM. S/p debridement by ortho; Cxs pending. The ID service is following for cellulitis/OM of L AKA stump site. Plan: 1. Osteomyelitits of the left lower extremity - Patient presented w/ erythema, swelling, drainage of L AKA stump - XR on presentation shows signs consistent with osteomyelitis - s/p debridement by ortho 12/05; CXs pending - Maintain therapy w/ IV vancomycin +meropenem - Will follow CX results and adjust accordingly 2. Hx of LLE infection s/p L AKA 3. Chronic obstructive pulmonary disease- on home O2 4. Obstructive sleep apnea- on BiPAP 5. Prior b/l PE 08/2022- AC on apixaban 6. Hx of R foot OM s/p R BKA 7. Gastroesophageal reflux disease 8. Stress urinary incontinence 9. Hypertension 10. Osteoarthritis 11. Seasonal allergies 12. Vertigo 13. Asthma 14. Depression 15. Fibromyalgia 16. Obesity Recommendations: 1. Maintain therapy w/ IV vancomycin + meropenem 2. Will follow debridement CX results The ID service will continue to follow. Total time 35 minutes on this day of encounter includes counseling, coordinating plan of care, record and documentation review before and after visit including documentation and time not explicitly included on EMR time stamp for accounting for open encounter. Cristian Maxwell DO [facility] Infectious Diseases Office Tel. [phone] * Teresa Sandoval PTA - 12/08/2022 2:00 PM EST Physical Therapy Pt eating lunch upon arrival. Pt states she is frustrated about no home care options d/t her home location and staffing issues. Will check back as schedule permits. * Jose Chávez MD - 12/08/2022 10:41 AM EST Images from the original note were not included. Hospitalist Progress Note 12/08/2022 10:41 AM Subjective: Admit Date: 12/03/2022 PCP: Oj Maddox Interval History: pt feels better No new issues Adult diet Regular @IODETAILS@ @[email or web address]@ Medications: amitriptyline, 100 mg, Oral, Nightly budesonide, 0.5 mg, Nebulization, Daily citalopram, 20 mg, Oral, Daily enoxaparin, 40 mg, SubCUTAneous, Daily gabapentin, 300 mg, Oral, Nightly heparin flush, 250 Units, IntraCATHeter, q12h Lidocaine, 1 patch, TransDERmal, Daily meropenem, 2,000 mg, IntraVENous, q8h methocarbamol, 750 mg, Oral, 3 times per day mometasone-formoterol, 2 puff, Inhalation, BID pantoprazole, 40 mg, Oral, qAM AC polyethylene glycol (PEG) 3350, 17 g, Oral, Daily senna-docusate sodium, 2 tablet, Oral, Nightly sodium chloride 0.9%, 10 mL, IntraCATHeter, q12h tiotropium, 1 capsule, Inhalation, Daily vancomycin, 1,500 mg, IntraVENous, q12h Recent Labs 12/06/22 0233 12/07/22 0144 WBC 4.4 6.8 HGB 9.6* 8.9* PLT 330 307 Recent Labs 12/06/22 0233 12/07/22 0144 NA 136 142 K 4.1 4.0 CL 103 107 CO2 28 29 BUN 13 19* CREATININE 0.58 0.66 GLUCOSE 193* 123* No results for input(s): AST, ALT, BILITOT, ALKPHOS in the last 72 hours. No lab exists for component: ALB No results found for: TRIG, HDL, LDLCALC, CHOL No results for input(s): INR in the last 72 hours. Recent Labs 12/07/22 0904 TROPONINI <0.012 Objective: Vitals: BP 137/85 (BP Location: Left arm, Patient Position: Lying) Pulse 84 Temp 36.4 C (97.5 F) (Temporal) Resp 20 Ht 5' 7 (1.702 m) Wt (!) 339 lb 3.2 oz (154 kg) SpO2 95% BMI 53.13 kg/m Pulse Ox: SpO2 Av % Min: 95 % Max: 95 % Supplemental O2: O2 Flow Rate (L/min): 2 L/min General appearance: Alert and cooperative with exam Lungs: clear to auscultation bilaterally Heart: regular rate and rhythm Abdomen: soft, non-tender; bowel sounds normal; no masses, no organomegaly Extremities: B amputations LE noted LLE wound vac Neurologic: No obvious focal neurologic deficits. Assessment Principal Problem: Cellulitis of left lower extremity Active Problems: Surgical wound infection HLD (hyperlipidemia) Difficult intubation History of right below knee amputation (HCC) HTN (hypertension) Pansystolic murmur Obstructive sleep apnea syndrome Gastroesophageal reflux disease Cont abx for now--ID following--PICC in place S/p I&D Cont home meds otherwise Shoulder XR degenerative changes only--ortho did order ECG--no acute changes Pt somewhat vague abut if she would accept placement after this admit. Will cont to discuss with ptand TCC Plan vac change on Sunday Continue to work on facility to accept See orders, continue POC Advance Directive: Full Code Jose Chávez MD, [facility] Hospitalist * Nadja Valentino RN - 12/08/2022 8:50 AM EST Images from the original note were not included. Wound Care follow up visit: focused assessment on Left AKA wound VAC dressing change. Pt medicated earlier for pain with oral pain medication, per balance staff inspector, prior to wound VAC dressing change. Old wound VAC dressing soaked with saline and removed without difficulties from Left AKA. Removed 1 piece of white and 1 piece of black foam. Pt's Left lateral AKA with full thickness surgicalwound measuring 2.5 x 11 x 3.5cm deep with undermining at 9 o'clock of 4.5cm. Wound bed with 98% red tissues and 2% scattered yellow (see photo below) Periwound improved (no further rash noted), no erythema or induration noted. Small amount of serosang drainage noted in VAC canister. No odor, purulence or active bleeding noted. Wound and periwound cleansed with saline, patted dry and cavilon no sting applied to periwound. 1 piece of spiral cut white foam applied to undermining and base of wound, topped with 1 piece of black foam. Trac pad bridged to lateral thigh. Periwound pictured framed with drape. Small piece of coloplast strip paste/Adapt ring used at medial AKA incision deeper crease to help achieve/maintain wound VAC seal. Wound VAC well sealed at 125 mmHg continuous suction. Pt tolerated the dressing very well. Medial proximal aspect of incision with small open area noted with crusted drainage. Cleansed with saline and small open area noted measuring 0.5 x 0.3cm with pink and yellow tissues. Periwound clear, no erythema. No purulence noted. Small piece of mesalt applied and covered with mepilex 4x4 foam. Pt denies any other skin breakdown. Wound Care will continue to follow pt for wound VAC dressing changes. Please Vocera, Secure Chat ([facility] Wound VAC group) or page [phone] for any questions or concerns. Ana Valentino RN, CWCN * Teresa Sandoval PTA - 12/07/2022 3:30 PM EST Physical Therapy Pt attempted x2 for PT today. Pt OOR for L shoulder X-ray on first attempt. Pt w/ PICC team in roomon second attempt. Will check back as schedule permits. * Joanna Sandoval PA-C - 12/07/2022 12:22 PM EST Orthopedic surgery progress progress note Left shoulder x-ray ordered during time of encounter today. The x-ray was subsequently completed. My interpretation is as follows: Left shoulder x-ray (12/07/2022): Severe degenerative changes of the glenohumeral joint. Also noted are degenerative changes of the AC joint. No acute fracture or dislocation. Radiology report reviewed Also during my evaluation, due to severe left shoulder pain in the alexus- operative setting, I ordered a chest x-ray, EKG, and troponin. Troponin was within normal limits. EKG was completed and reviewed by medicine, demonstrating no acute changes. The patient's left shoulder pain is likely secondary to her severe osteoarthritis. We will continueto recommend lidocaine patch as needed and perioperative pain management. Orthopaedic surgery will follow. Please page manager acquisition orthopaedic resident for questions or concerns. * Cristian Monteiromanjit Maxwell, - 12/07/2022 11:54 AM EST Images from the original note were not included. [facility] - Infectious Diseases Attending Progress Note Subjective: Following for cellulitis/OM of L AKA stump site. Pt reports improvement in leg pain. She denies f/c, n/v/d, SOB, cough, or abdominal pain. No further complaints at this time. Vital signs- HR 92 Lab data- WBC 6.8, Hgb 8.9 Antimicrobial therapy- vancomycin, meropenem Micro reports- L knee CXs pending Discharge planning- TBD Code- FULL Objective: Vitals: Patient Vitals for the past 24 hrs: BP Temp Temp src Pulse Resp SpO2 Height 12/07/22 0930 136/76 36.3 C (97.4 F) Temporal 92 18 95 % -- 12/07/22 0842 -- -- -- -- -- 96 % -- 12/07/22 0753 -- -- -- -- -- -- 5' 7 (1.702 m) 12/07/22 0627 109/85 36.1 C (96.9 F) Temporal 90 18 93 % -- 12/06/22 1827 (!) 143/75 36.1 C (97 F) Temporal 97 -- 94 % -- Physical Exam Constitutional: General: She is not in acute distress. Appearance: Normal appearance. She is normal weight. She is not ill-appearing, toxic-appearing or diaphoretic. HENT: Head: Normocephalic and atraumatic. Nose: Nose normal. Mouth/Throat: Mouth: Mucous membranes are moist. Pharynx: Oropharynx is clear. No oropharyngeal exudate or posterior oropharyngeal erythema. Eyes: General: No scleral icterus. Extraocular Movements: Extraocular movements intact. Pupils: Pupils are equal, round, and reactive to light. Cardiovascular: Rate and Rhythm: Normal rate and regular rhythm. Pulses: Normal pulses. Heart sounds: Normal heart sounds. No murmur heard. No friction rub. No gallop. Pulmonary: Effort: Pulmonary effort is normal. No respiratory distress. Breath sounds: No wheezing, rhonchi or rales. Comments: Diminished breath sounds b/l Prolonged expiratory phase Abdominal: General: Abdomen is flat. Bowel sounds are normal. Palpations: Abdomen is soft. Tenderness: There is no abdominal tenderness. There is no guarding or rebound. Musculoskeletal: General: Swelling, tenderness, deformity and signs of injury present. Cervical back: Neck supple. Comments: s/p R BKA s/p L AKA LLE AKA site w/ erythema, swelling Wound VAC in place Skin: General: Skin is warm and dry. Capillary Refill: Capillary refill takes less than 2 seconds. Coloration: Skin is not pale. Findings: Erythema and lesion present. No rash. Neurological: General: No focal deficit present. Mental Status: She is alert. Psychiatric: Mood and Affect: Mood normal. Judgment: Judgment normal. Labs: Lab Results Component Value Date/Time NA 142 12/07/2022143 K 4.0 12/07/2022 014 CL 107 12/07/2022 014 CO2 29 12/07/2022 014 BUN 19 (H) 12/07/2022 014 CREATININE 0.66 12/07/2022 014 CREATININE 0.70 02/14/2022 0918 GLUCOSE 123 (H) 12/07/2022 0144 CALCIUM 8.5 12/07/2022 0144 PROT 7.1 02/01/2022 0426 BILITOT 0.4 02/01/2022 0426 ALKPHOS 80 02/01/2022 0426 AST 31 02/01/2022 0426 PROCAL 0.04 12/04/2022 0149 PROCAL 0.02 11/11/2022 0301 PROCAL 1.77 (H) 01/25/2022 0618 Lab Results Component Value Date/Time WBC 6.8 12/07/2022 0144 HGB 8.9 (L) 12/07/2022143 HCT 28.2 (L) 12/07/2022143 PLT 307 12/07/2022143 GRANULOCYTES 66.9 02/14/202218 LYMPHOPCT 23.5 12/07/2022143 MONOPCT 11.7 (H) 12/07/2022143 LABEOS 3.5 02/14/2022917 BASOPCT 0.8 12/07/2022143 NEUTROABS 4.3 12/07/2022143 Micro: 11/16 L tissue thigh CXs (+) for E fecalis, E cloacae, B fragilis 11/20 Occult blood x 1, stool (-) 11/22 Blood CX x2 NGTD 12/03 Blood CX x2 NGTD 12/03 L tissue thigh CX (+) for GPC Lines/Drains/Airways: 12/03 RUE PIV Radiography/Echo/Other: 12/03 XR knee 1/2V L Cortical irregularity identified about the distal femoral stem concerning for osteomyelitis, clinical correlation is recommended 12/03 XR femur L 2+V No evidence of acute osseous abnormality 12/03 XR shoulder 2+V L Degenerative changes Antimicrobials, Start/End Dates: 12/03-12/05 piperacillin/tazobactam 12/03-12/05 clindamycin 12/03- vancomycin 12/05 meropenem Impression: Ms. Haas is a 62 y/o F w/ PMH of LLE NF s/p debridement and L AKA, R BKA, COPD/asthma on home O2, prior b/l PE 08/2022 (AC on apixaban), FAY on BIPAP, GERD, HTN, OA, depression, fibromyalgia. Presented to [facility] ED 12/03 w/ severe pain and erythema of the LLE stump. Recently underwent L AKA 10/31 w/ multiple subsequent I&Ds, w/ the most recent on 11/21/22. Seen by [facility] [place] ID service at the time;was tx'd for 2w for SSI of stump site. CXs from the previous debridement were (+) for E cloacae, E fecalis. Was tx'd w/ meropenem. After completion of IV therapy, she noticed increasing drainage and erythema from the area. XR of the LE showed cortical irregularity identified about the distal femoral stem concerning for OM. S/p debridement by ortho; Cxs pending. The ID service is following for cellulitis/OM of L AKA stump site. Plan: 1. Osteomyelitits of the left lower extremity - Patient presented w/ erythema, swelling, drainage of L AKA stump - XR on presentation shows signs consistent with osteomyelitis - s/p debridement by ortho 12/05; CXs pending - Maintain therapy w/ IV vancomycin +meropenem - Will follow CX results and adjust accordingly 2. Hx of LLE infection s/p L AKA 3. Chronic obstructive pulmonary disease- on home O2 4. Obstructive sleep apnea- on BiPAP 5. Prior b/l PE 08/2022- AC on apixaban 6. Hx of R foot OM s/p R BKA 7. Gastroesophageal reflux disease 8. Stress urinary incontinence 9. Hypertension 10. Osteoarthritis 11. Seasonal allergies 12. Vertigo 13. Asthma 14. Depression 15. Fibromyalgia 16. Obesity Recommendations: 1. Maintain therapy w/ IV vancomycin + meropenem 2. Will follow debridement CX results The ID service will continue to follow. Total time 35 minutes on this day of encounter includes counseling, coordinating plan of care, record and documentation review before and after visit including documentation and time not explicitly included on EMR time stamp for accounting for open encounter. Cristian Maxwell DO [facility] Infectious Diseases Office Tel. [phone] * Joanna Fox OT - 12/07/2022 10:39 AM EST Occupational Therapy Received order for OT eval and tx. Per chart review, pt with pending STAT L shoulder X-Ray, pt having severe pain into her left posterior shoulder with radiation of pain into her left deltoid this AM. Will hold OT eval until imaging is resulted. Will continue to monitor. -PATTIE Acharya, OTR/L * Jose Chávez MD - 12/07/2022 9:21 AM EST Images from the original note were not included. Hospitalist Progress Note 12/07/2022 9:22 AM Subjective: Admit Date: 12/03/2022 PCP: Oj Maddox Interval History: pt feels better Some B shoulder pain issues--noted that pt was sleeping rather soundly when I entered the room Adult diet Regular @[email or web address]@ @[email or web address]@ Medications: amitriptyline, 100 mg, Oral, Nightly budesonide, 0.5 mg, Nebulization, Daily citalopram, 20 mg, Oral, Daily enoxaparin, 40 mg, SubCUTAneous, Daily gabapentin, 300 mg, Oral, Nightly Lidocaine, 1 patch, TransDERmal, Daily meropenem, 2,000 mg, IntraVENous, q8h methocarbamol, 750 mg, Oral, 3 times per day mometasone-formoterol, 2 puff, Inhalation, BID pantoprazole, 40 mg, Oral, qAM AC polyethylene glycol (PEG) 3350, 17 g, Oral, Daily senna-docusate sodium, 2 tablet, Oral, Nightly tiotropium, 1 capsule, Inhalation, Daily vancomycin, 1,500 mg, IntraVENous, q12h Recent Labs 12/05/2213212/06/22 0233 12/07/22 0144 WBC 4.1 4.4 6.8 HGB 9.4* 9.6* 8.9* PLT 306 330 307 Recent Labs 12/05/2213212/06/22 0233 12/07/22 0144 NA 140 136 142 K 3.8 4.1 4.0 CL 107 103 107 CO2 26 28 29 BUN 14 13 19* CREATININE 0.59 0.58 0.66 GLUCOSE 113* 193* 123* No results for input(s): AST, ALT, BILITOT, ALKPHOS in the last 72 hours. No lab exists for component: ALB No results found for: TRIG, HDL, LDLCALC, CHOL No results for input(s): INR in the last 72 hours. No results for input(s): CKTOTAL, CKMB, TROPONINI in the last 72 hours. Objective: Vitals: BP 109/85 Pulse 90 Temp 36.1 C (96.9 F) (Temporal) Resp 18 Ht 5' 7 (1.702 m) Wt (!) 339 lb 3.2 oz (154 kg) SpO2 96% BMI 53.13 kg/m Pulse Ox: SpO2 Av.3 % Min: 93 % Max: 96 % Supplemental O2: O2 Flow Rate (L/min): 2 L/min General appearance: Alert and cooperative with exam Lungs: clear to auscultation bilaterally Heart: regular rate and rhythm Abdomen: soft, non-tender; bowel sounds normal; no masses, no organomegaly Extremities: B amputations LE noted LLE wound vac Neurologic: No obvious focal neurologic deficits. Assessment Principal Problem: Cellulitis of left lower extremity Active Problems: Surgical wound infection HLD (hyperlipidemia) Difficult intubation History of right below knee amputation (HCC) HTN (hypertension) Pansystolic murmur Obstructive sleep apnea syndrome Gastroesophageal reflux disease Cont abx for now--defer to ID ? [facility] iv S/p I&D Cont home meds otherwise Shoulder XR degenerative changes only--ortho did order ECG--no acute changes Pt somewhat vague abut if she would accept placement after this admit. Will cont to discuss with ptand TCC Plan vac change on sunday See orders, continue POC Advance Directive: Full Code Jose Chávez MD, [facility] Hospitalist * Riddhi Henson RD - 12/07/2022 9:19 AM EST Nutrition Assessment Type and Reason for Visit: Reassess Nutrition Recommendations/Plan: Continue Regular diet + Ensure Max Protein BID. Monitor BG levels and need for cho control on diet. Recommend record po intake in I/O flowsheet to monitor. Consider daily MVI & Vit. C to aid in healing. Consider checking serum zinc level and supplementing if depleted. RD will monitor & follow weekly. Malnutrition Assessment: Malnutrition Status: At risk for malnutrition (Comment) (will continue risk for malnutrition due tore-admit after prolonged hospitalization in Nov 2021. low appetite at baseline and chronic wounds) Context: Acute Illness Findings of the 6 clinical characteristics of malnutrition: Energy Intake: No significant decrease in energy intake (at baseline low appetite. 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 Labs: BUN elevatred 19, Glucoseelevated 123. Medications reviewed. ID following. Pt reports feeling well this morning, but tired. No pain from surgery. Denies chew/swallow difficulty. Denies N/V/abd pain. Pt reports she has been eating ~50% meals and has been drinking Ensures. Plans to order bfst. RD encouraged protein with meals. Estimated Daily Nutrient Needs: Energy Requirements Based On: Kcal/kg Weight Used for Energy Requirements: [place] Weight for Energy Calculation (kg): 52 kg Total Energy Requirements (kcals/day): 4998-0507 kcal/day(25-30 kcal/kg) Weight Used for Protein Requirements: [place] Weight in Kg Used for Protein Requirements: 52 kg Estimated Total Protein (g/day): 62-80 g pro (1.2-1.5 g pro/kg) Estimated Daily Total Fluid (ml/day): per MD Nutrition Related Findings: LLE edema, Rudi 15, GI WDL, BM 12/06 Wound Type: Surgical Incision, Wound Vac (L stump I&D withwound vac) Current Nutrition Therapies: Adult diet Regular Current Oral Intake Average Meal Intake: (50% per pt report) Average Supplements Intake: 76-100% (per pt report) Anthropometric Measures: Height: 170.2 cm (5' 7) Current Body Weight: 154 kg (339 lb 3.2 oz) (12/04) Weight Source: Bed Scale Admission Body Weight: 153 kg (337 lb 4.9 oz) Usual Body Weight: 159 kg (350 lb) (per review of [facility] weight hx) % Weight Change (Calculated): -3.6 [place] Body Weight (lbs) (Calculated): 135 lbs [place] Body Weight (Kg) (Calculated): 61 kg % [place] Body Weight (Calculated): 251.3 % BMI (kg/m2) (Calculated): 53.1 Weight Adjustment For: Amputation % Weight Adjustment: 11.8 - Bilateral BKA, 10.1 - AKA Total Adjusted Percentage (Calculated): 21.9 Adjusted [place] Body Weight (lbs) (Calculated): 105.4 lbs Adjusted [place] Body Weight (kg) (Calculated): 47.91 kg Adjusted BMI (kg/m2) (Calculated): 64.7 BMI Categories: Obese Class 3 (BMI 40.0 or greater) Nutrition Diagnosis: Increased nutrient needs related to other (comment) (continued wound infection to AKA site) as evidenced by wounds Nutrition Interventions: Nutrition Education/Counseling: No recommendation at this time Coordination of Nutrition Care: Continue to monitor while inpatient Goals: Previous Goal Met: Goal(s) Achieved Goals: PO intake 75% or greater Nutrition Monitoring and Evaluation: Behavioral-Environmental Outcomes: None Identified Food/Nutrient Intake Outcomes: Food and Nutrient Intake, Supplement Intake Physical Signs/Symptoms Outcomes: Biochemical Data, GI Status, Fluid Status or Edema, Skin, Weight Discharge Planning: Too soon to determine Riddhi Henson RD Contact: phone *[phone] * Joanna Sandoval PA-C - 12/07/2022 8:46 AM EST Images from the original note were not included. Orthopedic Progress Note Name: Siobhan Haas Date:12/07/2022 Attending:Jose Chávez MD Subjective CHIEF COMPLAINT: s/p I&D of L AKA stump with wvac placement on 12/05/2022 HPI: Patient is seen resting in bed, tearful and in obvious pain. The patient reports that she is having severe pain into her left posterior shoulder with radiation of pain into her left deltoid. Patient denies any numbness or tingling into her left upper extremity. Patient denies any neck pain. Patient denies any significant pain into her left lower extremity. Patient denies any numbness or tingling into her left lower extremity. Objective PAST MEDICAL HISTORY Patient Active Problem [...] (BMI) Gastroesophageal reflux disease Hiatal hernia Callosity MCFP (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 antibiotics Left leg cellulitis Dehiscence of closure of skin, sequela Necrotizing soft tissue infection Infected wound Osteomyelitis (HCC) Hematoma Cellulitis of right foot Post-op pain Osteomyelitis of right foot ([facility]) Open wound of right foot MSSA (methicillin susceptible Staphylococcus aureus) infection Right foot infection Hardware complicating wound infection (CMS/HCC) ([facility]) Right foot pain Postoperative pain Cellulitis Lymphedema Stump pain ([facility]) Abrasion of lower leg with infection, initial encounter PE (pulmonary thromboembolism) ([facility]) Surgical wound infection HLD (hyperlipidemia) Superficial venous thrombosis of left upper extremity Cellulitis of left lower extremity Difficult intubation PAST SURGICAL HISTORY Past Surgical History: Procedure [...] Right 02/11/2019 FOOT SURGERY Right 2019 IN [place] FOOT SURGERY Right 04/08/2019 I&D right foot with antibiotic spacer FOOT SURGERY Right 04/24/2019 I&D;, external fixator FOOT SURGERY Left 08/04/2021 peroneus longus tenolysis - Dr Gamino HYSTERECTOMY 1997 INCISION AND DRAINAGE OF WOUND Left 11/21/2022 LLE INCONTINENCE SURGERY 11/15/2015 synthetic mid urethral sling,cystoscopy [...] Right 05/06/2019 Right Below Knee Amputation (CPT 76242), #2 Excisional debridement right iliac crest (wound 7 cm length, 3 cm width, 7 cm depth) TONSILLECTOMY (HISTORICAL) TOTAL KNEE ARTHROPLASTY Left 2012 ARTHROSCOPY FIRST AND KNEE REPLACED WISDOM TOOTH EXTRACTION WOUND DEBRIDEMENT Left 10/28/2021 irrigation and debridment LLE HOME MEDICATIONS Prior to Admission medications Medication Sig Start Date End Date Taking? Authorizing Provider acetaminophen (Tylenol) 500 MG tablet Take 2 tablets (1,000 mg) by mouth in the morning and 2 tablets (1,000 mg) at noon and 2 tablets (1,000 mg) before bedtime. Do all this for 10 days. 11/27/22 12/07/22 Lulú Zhao MD albuterol (2.5 MG/3ML) 0.083% nebulizer solution Take 2.5 mg by nebulization 2 times daily as needed. 03/23/22 Historical Provider, albuterol 108 (90 Base) MCG/ACT inhaler INHALE 2 PUFFS FOUR TIMES DAILY NEEDED FOR WHEEZING 03/23/22 Historical Provider, apixaban (Eliquis) 5 MG tablet Take 1 tablet (5 mg) by mouth 2 times daily. 11/27/22 Lulú Zhao MD Ascorbic Acid (VITAMIN C PO) Take 1 tablet by mouth every other day. Take with Iron tablets Historical ProviderMD budesonide (Pulmicort) 0.25 MG/2ML nebulizer solution Take 0.25 mg by nebulization 2 times daily asneeded. 12/23/21 Historical ProviderMD cholecalciferol (Vitamin D-3) 1.25 MG (30624 UT) capsule Take 50,000 Units by mouth 1 (one) time per week. On Sunday03/23/22 Historical ProviderMD ferrous sulfate 325 (65 Fe) MG tablet Take 1 tablet (325 mg) by mouth every other day. Do not startbefore November 28, 2022. 11/28/22 11/28/23 Lulú Zhao MD methocarbamol (Robaxin) 750 MG tablet Take 1 tablet (750 mg) by mouth in the morning and 1 tablet (750 mg) at noon and 1 tablet (750 mg) before bedtime. Do all this for 10 days. 11/27/22 12/07/22 Lulú Zhao MD oxyCODONE (Roxicodone) 10 MG immediate release tablet Take 10 mg by mouth every 4 hours as needed for severe pain (7-10). Historical Provider, polyethylene glycol, PEG, 3350 (Miralax) 17 g packet Take 17 g by mouth daily. Historical Provider, senna-docusate sodium (Senokot-S) 8.6-50 MG tablet Take 2 tablets by mouth Nightly. 11/27/22 11/27/23Lulú Zhao MD amitriptyline (Elavil) 100 MG tablet 08/09/22 12/04/22 Historical Provider, budesonide-formoterol (Symbicort) 160-4.5 MCG/ACT inhaler Inhale 2 puffs in the morning and 2 puffsin the evening. 12/04/22 Historical Provider, citalopram (CeleXA) 40 MG tablet Take 40 mg by mouth in the morning. 03/23/22 12/04/22 Historical Provider, fluticasone (Flonase) 50 MCG/ACT nasal spray 1 spray. 12/04/22 Historical Provider, gabapentin (Neurontin) 300 MG capsule Take 1 capsule (300 mg) by mouth Nightly. 11/02/22 12/04/22 Vinh Collins, Lidocaine 4 % patch Apply 1 patch topically daily. Do not start before November 03, 2022. Patient not taking: Reported on 12/04/2022 11/03/22 12/04/22 Vinh Collins, LORazepam (Ativan) 0.5 MG tablet Take 0.5 mg by mouth. Take 1-2 tablets every 8 hours as needed foranxiety 12/04/22 Historical Provider, meropenem (Merrem) 1 g injection Infuse 2 g into a venous catheter in the morning and 2 g at noon and 2 g before bedtime. Do all this for 3 days. 11/27/22 12/04/22 Lulú Zhao MD omeprazole (PriLOSEC) [address] capsule Take 1 capsule by mouth in the morning. 07/12/15 12/04/22 Historical ProviderMD oxyCODONE (Roxicodone) 10 MG immediate release tablet Take 1 tablet (10 mg) by mouth every 4 hours as needed for moderate pain (4-6) for up to 5 days. 11/27/22 12/04/22 Lulú Zhao MD polyethylene glycol, PEG, 3350 (Miralax) 17 g packet Take 17 g by mouth daily for 3 days. Do not start before November 28, 2022. 11/28/22 12/04/22 Lulú Zhao MD tiotropium (Spiriva) [address] 18 mcg into inhaler and inhale in the morning.12/04/22 Historical Provider, CURRENT HOSPITAL MEDICATIONS Current Facility-Administered Medications: acetaminophen (Tylenol) tablet 650 mg, 650 mg, Oral, q4h PRN, 650 mg at 12/07/22 0142 OR acetaminophen (Tylenol) suppository 650 mg, 650 mg, Rectal, q4h PRN, Maximino Aceves JD, MD albuterol 108 (90 Base) MCG/ACT inhaler 2 puff, 2 puff, Inhalation, q4h PRN, Maximino Aceves JD, MD amitriptyline (Elavil) tablet 100 mg, 100 mg, Oral, Nightly, Maximino Aceves JD, MD, 100 mg at 12/06/222123 budesonide (Pulmicort) 0.5 MG/2ML nebulizer solution 0.5 mg, 0.5 mg, Nebulization, Daily, Maximino Aceves JD, MD, 0.5 mg at 12/07/22 08 citalopram (CeleXA) tablet 20 mg, 20 mg, Oral, Daily, Maximino Aceves JD, MD, 20 mg at 12/06/22 08 enoxaparin (Lovenox) syringe 40 mg, 40 mg, SubCUTAneous, Daily, Maximino Aceves JD, MD gabapentin (Neurontin) capsule 300 mg, 300 mg, Oral, Nightly, Maximino Aceves JD, MD, 300 mg at 12/06/222106 Lidocaine 4 % patch 1 patch, 1 patch, TransDERmal, Daily, Gaviota Fuller MD LORazepam (Ativan) tablet 0.5 mg, 0.5 mg, Oral, q8h PRN, Maximino Aceves JD, MD, 0.5 mg at melatonin tablet 5 mg, 5 mg, Oral, Nightly PRN, Maximino Aceves JD, MD meropenem (Merrem) 2,000 mg in sodium chloride 0.9 % 100 mL IVPB, 2,000 mg, IntraVENous, q8h, Maximino Aceves JD, MD, Stopped at 12/07/22 0350 methocarbamol (Robaxin) tablet 750 mg, 750 mg, Oral, 3 times per day, Maximino Aceves JD, MD, 750 mg at 12/07/22623 mometasone-formoterol (Dulera 200) 200-5 MCG/ACT inhaler 2 puff, 2 puff, Inhalation, BID, Maximino Aceves JD, MD, 2 puff at 12/06/222124 ondansetron ODT (Zofran-ODT) disintegrating tablet 4 mg, 4 mg, Oral, q8h PRN OR ondansetron (Zofran) injection 4 mg, 4 mg, IntraVENous, q6h PRN, Maximino Aceves JD, MD, 4 mg at 12/06/222106 oxyCODONE-acetaminophen (Percocet) 5-325 MG per tablet 2 tablet, 2 tablet, Oral, q6h PRN, Maximino Aceves JD, MD, 2 tablet at 12/07/22623 pantoprazole (ProtoNix) EC tablet 40 mg, 40 mg, Oral, qAM AC, Maximino Aceves JD, MD, 40 mg at 12/07/22623 polyethylene glycol (PEG) 3350 (Miralax) packet 17 g, 17 g, Oral, Daily, Maximino Aceves JD, MD, 17g at 12/06/22 08 senna-docusate sodium (Senokot-S) 8.6-50 MG tablet 2 tablet, 2 tablet, Oral, Nightly, Maximino Aceves JD, MD, 2 tablet at 12/06/222105 tiotropium (Spiriva) 18 MCG per inhalation capsule 18 mcg, 1 capsule, Inhalation, Daily, Maximino Aceves JD, MD, 18 mcg at 12/06/22 0820 vancomycin (Vancocin) 1,500 mg in dextrose 5 % 250 mL IVPB, 1,500 mg, IntraVENous, q12h, Maximino Aceves JD, MD, Stopped at 12/07/22 0117 ALLERGIES: Amlodipine, Cefepime, Clonazepam, Ketamine, Lisinopril, and Vancomycin SOCIAL HISTORY: Social History Socioeconomic History Marital status: Spouse name: Not on file Number of children: Not on file Years of education: Not on file Highest education level: Not on file Occupational History Not on file Tobacco Use Smoking status: Former Packs/day: 0.15 Types: Cigarettes Quit date: 10/01/1981 Years since quittin.2 Smokeless tobacco: Never Vaping Use Vaping Use: Never used Substance and Sexual Activity Alcohol use: Not Currently Drug use: No Sexual activity: Yes Partners: Male Other Topics Concern Not on file Social History Narrative Has been in rehab facility in [place] Lives alone, son close Friends help Social Determinants of Health Financial Resource Strain: Not on file Food Insecurity: Not on file Transportation Needs: No Transportation Needs Lack of Transportation (Medical): No Lack of Transportation (Non-Medical): No Physical Activity: Not on file Stress: Not on file Social Connections: Not on file Intimate Partner Violence: Not At Risk Fear of Current or Ex-Partner: No Emotionally Abused: No Physically Abused: No Sexually Abused: No Housing Stability: Unknown Unable to Pay for Housing in the Last Year: No Number of Places Lived in the Last Year: Not on file Unstable Housing in the Last Year: No FAMILY HISTORY: Family History Problem Relation Name [...] systems reviewed and are negative VITALS: Vitals: 12/06/22 1827 12/07/22 0627 12/07/22 0753 12/07/22 0842 BP: (!) 143/75 109/85 BP Location: Patient Position: Pulse: 97 90 Resp: 18 Temp: 36.1 C (97 F) 36.1 C (96.9 F) TempSrc: Temporal Temporal SpO2: 94% 93% 96% Weight: Height: 1.702 m (5' 7) PHYSICAL EXAM: GENERAL: Patient is well developed/well nourished in acute distress, tearful. A+O x 4 MOOD AND AFFECT: Calm appropriate to situation GAIT AND STATION: Patient is in bed COORDINATION and BALANCE: Patient is grossly coordinated LYMPHADENOPATHY: none on examination of the affected extremity(s) LUE INSPECTION SKIN: No erythema, warmth, or signs of infection. No open wounds, contusions, or abrasions. Patient is able to complete full forward flexion and abduction with radiation of pain into her posterior left shoulder, unchanged from shoulder at rest. Patient also endorses pain with passive forward flexion of the shoulder into the posterior left shoulder and deltoid, unchanged from shoulder rest. Mild-moderate TTP about the scapular spine. No pain with short arc range of motion NEUROLOGICAL: SILT intact to Ax/R/U/M MOTOR: +AIN/PIN/Ulnar VASCULAR: Palpable radial pulse. Capillary refill to all 5 upper extremity digits was brisk and alldigits were warm to touch. LLE INSPECTION DRESSING/SKIN: Patient is status post above-knee amputation. Wound vacuum in place with audible suction and minimal discharge in canister. NEUROLOGICAL: SILT intact to stump MOTOR: + Hip flexion VASCULAR: Stump is warm and well-perfused LABS: CBC: Lab Results Component Value Date WBC 6.8 12/07/2022 RBC 3.50 (L) 12/07/2022 BMP: Lab Results Component Value Date GLUCOSE 123 (H) 12/07/2022 CO2 29 12/07/2022 BUN 19 (H) 12/07/2022 CREATININE 0.66 12/07/2022 CALCIUM 8.5 12/07/2022 PT/INR: No results found for: PT, INR, APTT Type and Screen: No results found for: RH, LABANTI CRP: No results found for: CRP ESR: No results found for: SEDRATE HgBA1c: No components found for: LABA1C The above labs were reviewed by me. Assessment Siobhan is a 62 y.o.female s/p I&D of L AKA stump with wvac placement on 12/05/2022, now with severe left shoulder pain Plan -Plan for definitive vac mgmt of wound. No plans to RTOR Wound care c/s for vac changes MWF starting today -NWB LLE -PTOT -Elevate LLE -Antibiotics per ID Recommend long-term suppressive abx, appreciate recs -Monitor Hgb, 8.9 today -Order left shoulder x-ray. Patient previously underwent left shoulder x-ray on 12/03/2022, however is continuing to complain of severe left shoulder pain, mainly on the posterior aspect of her shoulder radiating into her deltoid. The patient reports that this pain is very severe. -Will also order chest x-ray, EKG, and troponin to rule out cardiac etiology of the left shoulder pain in the perioperative setting. Discussed with nursing to obtain repeat vital signs. Will ultimately defer management to primary if any abnormalities -Lidocaine patch as needed to left shoulder. -Dressing: wvac, continue changes per wound care Sunday/Sunday/Sunday -Neurovascular and skin checks -Ok to resume DVT ppx, on lovenox -Pain, medical management per primary -Patient was scheduled a follow up appointment for 12/20/2022 at 1:[address] Mercado's MELISSA, [employer] -[facility]dle recs: ok for dc after vac change on Sunday if long-term suppressive abx setup and pending vac output * Gaviota Fuller MD - 12/07/2022 7:51 AM EST Orthopedic Progress Note Name: Siobhan Haas Date:12/07/2022 Attending:Jose Chávez MD Subjective Pt crying and complaining of L shoulder pain on my exam. Patient reports there has been very low output in the wound VAC canister. Her main complaint is left shoulder this AM. Objective Vitals: 12/06/22 0611 12/06/22 0913 12/06/22 1827 12/07/22 0627 BP: 130/69 (!) 143/75 109/85 BP Location: Left arm Patient Position: Lying Pulse: 84 86 97 90 Resp: 16 16 18 Temp: 35.8 C (96.4 F) 36.1 C (97 F) 36.1 C (96.9 F) TempSrc: Temporal Temporal Temporal SpO2: 95% 95% 94% 93% Weight: Height: Physical Exam: General: NAD LUE: No erythema or warmth overlying the shoulder No bony tenderness to palpation No short arc pain with range of motion shoulder LLE Wound vac in place over AKA stump with intact suction-about 60cc bloody discharge in cannister SILT: to stump Motor +hip flex/ext/abd/add BCR to stump No ascending erythema LABS: Recent Labs 12/05/223 12/06/22 0233 12/07/22 0144 WBC 4.1 4.4 6.8 HGB 9.4* 9.6* 8.9* HCT 30.2* 30.3* 28.2* PLT 306 330 307 Recent Labs 12/05/2213212/06/22 0233 12/07/22 0144 NA 140 136 142 K 3.8 4.1 4.0 CL 107 103 107 CO2 26 28 29 BUN 14 13 19* CREATININE 0.59 0.58 0.66 CALCIUM 8.7 8.9 8.5 No results for input(s): INR in the last 72 hours. No results for input(s): SEDRATE, CRP in the last 72 hours. No results for input(s): HCG in the last 72 hours. XR left shoulder (12/03/2022): There is no acute fracture or dislocation. There is significant osteoarthritis of the glenohumeral joint. Assessment Siobhan is a 62 y.o.female s/p I&D of L AKA stump with wvac placement on 12/05/2022 Plan Plan for definitive vac mgmt of wound. No plans to RTOR Wound care c/s for vac changes MWF starting today NWB LLE Up with assistance PTOT Elevate LLE Antibiotics per ID Recommend long-term suppressive abx, appreciate recs Monitor Hgb Lidocaine patch as needed to left shoulder Dressing: wvac, continue Neurovascular and skin checks Ok to resume DVT ppx Pain, medical management per primary Ortho recs: ok for dc after vac change on Sunday if long-term suppressive abx setup and pending vacoutput Gaviota Fuller MD PGY2 Orthopaedic Surgery 12/07/2022 7:56 AM * Cristian Maxwell, - 12/06/2022 5:55 PM EST Images from the original note were not included. [facility] - Infectious Diseases Attending Progress Note Subjective: Following for cellulitis/OM of L AKA stump site. Pt reports improvement in leg pain. She denies f/c, n/v/d, SOB, cough, or abdominal pain. No further complaints at this time. Vital signs- WNL Lab data- WBC 4.4. Hgb 9.6 Antimicrobial therapy- vancomycin, meropenem Micro reports- L knee CXs pending Discharge planning- TBD Code- FULL Objective: Vitals: Patient Vitals for the past 24 hrs: BP Temp Temp src Pulse Resp SpO2 12/06/22 0913 -- -- -- 86 16 95 % 12/06/22 0611 130/69 35.8 C (96.4 F) Temporal 84 16 95 % 12/05/22 1934 (!) 140/88 36.6 C (97.9 F) Temporal 88 18 95 % 12/05/22 1900 (!) 148/79 -- -- 87 -- 97 % 12/05/22 1845 (!) 142/68 -- -- 82 15 99 % 12/05/22 1830 (!) 137/92 -- -- 85 18 92 % 12/05/22 1822 (!) 145/69 36.8 C (98.3 F) Temporal 86 14 98 % 12/05/22 1815 (!) 145/69 -- -- 88 23 99 % Physical Exam Constitutional: General: She is not in acute distress. Appearance: Normal appearance. She is normal weight. She is not ill-appearing, toxic-appearing or diaphoretic. HENT: Head: Normocephalic and atraumatic. Nose: Nose normal. Mouth/Throat: Mouth: Mucous membranes are moist. Pharynx: Oropharynx is clear. No oropharyngeal exudate or posterior oropharyngeal erythema. Eyes: General: No scleral icterus. Extraocular Movements: Extraocular movements intact. Pupils: Pupils are equal, round, and reactive to light. Cardiovascular: Rate and Rhythm: Normal rate and regular rhythm. Pulses: Normal pulses. Heart sounds: Normal heart sounds. No murmur heard. No friction rub. No gallop. Pulmonary: Effort: Pulmonary effort is normal. No respiratory distress. Breath sounds: No wheezing, rhonchi or rales. Comments: Diminished breath sounds b/l Prolonged expiratory phase Abdominal: General: Abdomen is flat. Bowel sounds are normal. Palpations: Abdomen is soft. Tenderness: There is no abdominal tenderness. There is no guarding or rebound. Musculoskeletal: General: Swelling, tenderness, deformity and signs of injury present. Cervical back: Neck supple. Comments: s/p R BKA s/p L AKA LLE AKA site w/ erythema, swelling Wound VAC in place Skin: General: Skin is warm and dry. Capillary Refill: Capillary refill takes less than 2 seconds. Coloration: Skin is not pale. Findings: Erythema and lesion present. No rash. Neurological: General: No focal deficit present. Mental Status: She is alert. Psychiatric: Mood and Affect: Mood normal. Judgment: Judgment normal. Labs: Lab Results Component Value Date/Time NA 136 12/06/2022 0233 K 4.1 12/06/2022 0233 CL 103 12/06/2022 0233 CO2 28 12/06/2022 0233 BUN 13 12/06/2022 0233 CREATININE 0.58 12/06/2022 0233 CREATININE 0.70 02/14/2022 0918 GLUCOSE 193 (H) 12/06/2022 0233 CALCIUM 8.9 12/06/2022 0233 PROT 7.1 02/01/2022 0426 BILITOT 0.4 02/01/2022 0426 ALKPHOS 80 02/01/2022 0426 AST 31 02/01/2022 0426 PROCAL 0.04 12/04/2022 0149 PROCAL 0.02 11/11/2022 0301 PROCAL 1.77 (H) 01/25/2022 0618 Lab Results Component Value Date/Time WBC 4.4 12/06/2022232 HGB 9.6 (L) 12/06/2022232 HCT 30.3 (L) 12/06/2022232 PLT 330 12/06/2022232 GRANULOCYTES 66.9 02/14/202218 LYMPHOPCT 16.3 (L) 12/06/2022232 MONOPCT 3.5 12/06/2022232 LABEOS 3.5 02/14/2022 0918 BASOPCT 0.6 12/06/2022232 NEUTROABS 3.5 12/06/2022232 Micro: 11/16 L tissue thigh CXs (+) for E fecalis, E cloacae, B fragilis 11/20 Occult blood x 1, stool (-) 11/22 Blood CX x2 NGTD 12/03 Blood CX x2 NGTD 12/03 L tissue thigh CX (+) for GPC Lines/Drains/Airways: 12/03 RUE PIV Radiography/Echo/Other: 12/03 XR knee 1/2V L Cortical irregularity identified about the distal femoral stem concerning for osteomyelitis, clinical correlation is recommended 12/03 XR femur L 2+V No evidence of acute osseous abnormality 12/03 XR shoulder 2+V L Degenerative changes Antimicrobials, Start/End Dates: 12/03-12/05 piperacillin/tazobactam 12/03-12/05 clindamycin 12/03- vancomycin 12/05 meropenem Impression: Ms. Haas is a 62 y/o F w/ PMH of LLE NF s/p debridement and L AKA, R BKA, COPD/asthma on home O2, prior b/l PE 08/2022 (AC on apixaban), FAY on BIPAP, GERD, HTN, OA, depression, fibromyalgia. Presented to [facility] ED 12/03 w/ severe pain and erythema of the LLE stump. Recently underwent L AKA 10/31 w/ multiple subsequent I&Ds, w/ the most recent on 11/21/22. Seen by [facility] ID service at the time;was tx'd for 2w for SSI of stump site. CXs from the previous debridement were (+) for E cloacae, E fecalis. Was tx'd w/ meropenem. After completion of IV therapy, she noticed increasing drainage and erythema from the area. XR of the LE showed cortical irregularity identified about the distal femoral stem concerning for OM. S/p debridement by ortho; Cxs pending. The ID service is following for cellulitis/OM of L AKA stump site. Plan: 1. Osteomyelitits of the left lower extremity - Patient presented w/ erythema, swelling, drainage of L AKA stump - XR on presentation shows signs consistent with osteomyelitis - s/p debridement by ortho 12/05; CXs pending - Maintain therapy w/ IV vancomycin +meropenem - Will follow CX results and adjust accordingly 2. Hx of LLE infection s/p L AKA 3. Chronic obstructive pulmonary disease- on home O2 4. Obstructive sleep apnea- on BiPAP 5. Prior b/l PE 08/2022- AC on apixaban 6. Hx of R foot OM s/p R BKA 7. Gastroesophageal reflux disease 8. Stress urinary incontinence 9. Hypertension 10. Osteoarthritis 11. Seasonal allergies 12. Vertigo 13. Asthma 14. Depression 15. Fibromyalgia 16. Obesity Recommendations: 1. Maintain therapy w/ IV vancomycin + meropenem 2. Will follow debridement CX results The ID service will continue to follow. Total time 35 minutes on this day of encounter includes counseling, coordinating plan of care, record and documentation review before and after visit including documentation and time not explicitly included on EMR time stamp for accounting for open encounter. Cristian Maxwell DO [facility] Infectious Diseases Office Tel. [phone] * Joanna Fox OT - 12/06/2022 2:09 PM EST Occupational Therapy Received order for OT eval and tx. Chart review completed. Attempted OT eval; other providers present working with pt. Will re-attempt eval as schedule permits. -PATTIE Acharya, OTR/L * Nadja Valentino RN - 12/06/2022 1:50 PM EST Images from the original note were not included. Wound Care consulted for wound VAC dressing to Left AKA. Pt's current and PMH reviewed. Ortho resident note reviewed from earlier this AM and states that pt's 1st wound VAC dressing change should be today. Wound VAC dressing procedure and frequency explained to pt. Pt verbalized understanding, reporting that she has had wound VAC dressing changes in the past. Pt due for oral pain medication shortly, notified balance staff inspector. Pt gave consent to proceed with dressing change and balance staff inspector arrived with pt's pain medication. Old wound VAC dressing soaked with saline and removed without difficulties from Left AKA. Removed 2 piece of black foam. Wound thoroughly examined and no remaining foam noted. Pt's Left lateral AKA with full thickness surgical wound measuring 2.5 x 11 x 3.5cm deep withundermining at 9 o'clock of 4.5cm. Wound bed with 95% red tissues and 5% scattered yellow (see photo below) Periwound clear with resolving yeast like rash, no erythema or induration noted. Small amount of serosang drainage noted in VAC canister. No odor, purulence or active bleeding noted. Wound and periwound cleansed with saline, patted dry and cavilon no sting applied to periwound. 1 piece of spiral cut white foam applied to undermining and base of wound, topped with 1 piece of black foam. Trac pad bridged to lateral thigh. Periwound pictured framed with drape. Small piece of coloplast strip paste/Adapt ring used at medial AKA incision deeper crease to help achieve/maintain wound VAC seal. Wound VAC well sealed at 125 mmHg continuous suction. Pt tolerated the dressing very well. Wound Care will continue to follow pt for wound VAC dressing changes. Please Vocera, Secure Chat ([facility] Wound VAC group) or page [phone] for any questions or concerns. Ana Valentino RN, CN * Ludwin Zarate, PT - 12/06/2022 12:20 PM EST Physical Therapy Facility/Department: 7W Physical Therapy Initial Evaluation NAME: Siobhan Haas : 1960 Date of Service: 12/06/2022 Discharge Recommendations: (pt wishes to return to home, dtr feels pt should do more rehab. Appreciate OT input and feel theirrecommendation should hold more weight (feel pt will likely complete functional transfers before she can perform self-care ADLs)) Assessment Assessment: Pt is very set on going home and proving to dtr she is capable. PT believes pt will likely meet PT goals--PT has suspicion pt will struggle more with ADL-type activities (appreciate OT input). Pt would love to see indep of supine to sit and functional transfer. Pt with relatively good hip ROM on LLE extn. Feel if pt able to use R prosthesis for transfers-this will only make easier forpt (currently does not have in hospital). Disch plan is evolving--pt wants opportunity to prove to dtr she can manage at home rather than rehab Performance Deficits/Impairments: Decreased functional mobility , Decreased endurance, Decreased balance, Decreased ROM, Decreased posture Decision Making: Medium Complexity Requires PT Follow-Up: Yes Activity Tolerance Activity Tolerance: Patient limited by endurance, Treatment limited secondary to medical complications (free text) Patient Diagnosis(es): The primary encounter diagnosis was Cellulitis of left lower extremity. A diagnosis of Surgical wound infection was also pertinent to this visit. 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 ([facility]) (07/27/2020), Asthma, Cellulitis, Constipation, Depression, Difficult intubation (12/04/2022), Fibromyalgia, GERD (gastroesophageal reflux disease), right BKA ([facility]) ([facility]), Hypertension, Morbidly obese ([facility]) ([facility]) (02/03/2019), On home O2, FAY treated with BiPAP, Osteoarthritis, Osteomyelitis of right foot ([facility]), Seasonal allergies, Shortness of breath, URSULA (stress urinary incontinence, female), and Vertigo. She has no past medical history of PONV (postoperative nausea and vomiting) or Prolonged emergence from general anesthesia. has [...] Foot surgery (Right, 04/08/2019); Other surgical history; [place] tooth extraction; Other surgical history (Right, 04/02/2019); Incontinence surgery (11/15/2015); Other surgical history (Right, 04/22/2019); Other surgical history (Right, 05/06/2019); orthopedic surgery (Right, 04/01/2019); Foot surgery (Right, 04/24/2019); Foot surgery (Left, 08/04/2021); Hysterectomy (1996); Tonsillectomy; andIncision and drainage of wound (Left, 11/21/2022). Restrictions Restrictions/Precautions Restrictions/Precautions: Fall Risk, General Precautions, Weight Bearing Required Braces or Orthoses?: (see below) Lower Extremity Weight Bearing Restrictions Left Lower Extremity Weight Bearing: Non Weight Bearing Upper Extremity Weight Bearing Restrictions Other: Pt has R BKA prosthesis at home. She does not currently have pumper gauger for RLE in hospital. PT asked pt to have someone bring in; concern is that with generalized edema pt may lose ability to don prosthesis. Vision/Hearing Vision: Within Functional Limits Hearing: Functional/adequate for paticipation in therapy Cognition/Orientation Overall Cognitive Status: WNL Cognition Comment: pt very focused on displaying her independence Subjective General Chart Reviewed: Yes Patient Assessed for Rehabilitation Services: Yes Family / Caregiver Present: No Diagnosis: L LE I&D of recent AKA. Follows Commands: Within Functional Limits General Comment Comments: IV, wound vac LLE Subjective Subjective: Pt in very positive spirits. She notes that she has been to rehab in past and feels sheknows what to do, just needs to perfect process. States her goal/ plan is to return to home. Pt placed dtr Luz Marina on speaker who notes all of the issues pt with toileting (pt acknowledges urgency).Dtr reports feeling pt would be better served going for further rehab. Social/Functional History Social/Functional History Additional Comments: Difficult at times to have pt fully delineate level of assist (as pt tries to focus on her independence). Pt has bed with side rail (she did not confirm hospital bed), w/c, ramp entry, drop arm BSC. Pt notes her car transfer is to a [employer]. Pt states she does not trust slide board and feels she does better just performing lateral transfer (pt states even to car). Dtr is concerned with urinary urgency and that pt is unable to quickly manage clothes [facility] Objective Observation/Palpation Posture: Fair Observation: pt comments that with incision her LLE looks like a butt (there is incisional invagination), mild erythema RLE. AROM RLE (degrees) RLE General AROM: full knee extn in sitting and supine; hip ROM WFL AROM LLE (degrees) LLE General AROM: At rest in recumbent, hip extn isometric to -10. Sidelying hip extn to 0. Pt notes at home she had been able to perform prone lying and prone on elbows. AROM RUE (degrees) RUE AROM : WFL AROM LUE (degrees) LUE General AROM: painful with L shldr flex at approx 110--pt notes doctor says it's bone on boneand she requires an injection. Strength RLE Comment: 5/5 knee and hip Strength LLE Comment: isometrics hip extn with good force. Hip ABD at least 3-/5. Sensation Overall Sensation Status: (full sensation ay distal residua chi.) Bed mobility Comment: Pt does often use HOB elevation to assist with task. Flat bed log rolling with definite reliance on siderail modif indep. Torso elevation min of 1 in attempt to long sit. Scooting to EOB good. Transfers Lateral Transfers: Contact guard assistance Comment: in performing bed to drop arm recliner transfer, the difficulty was maintaining initial torso balance during lateral scoot. Once pt completed first 2 of scooting, torso control maintained. Ambulation Ambulation: No Wheelchair Activities Wheelchair Size: did place w/c in room, ideally will benefit from 22 or even 24 (will assess mobility during stay) Balance Sitting - Static: Good, - Sitting - Dynamic: Fair, - Plan Times per Week: 3-5 Plan Weeks: 2 Current Treatment Recommendations: Strengthening, ROM, Balance Training, Functional Mobility Training, Transfer Training, Wheelchair Mobility Training, Endurance Training, Safety Education & Training, Patient/Caregiver Education & Training, Equipment Evaluation, Education, & procurement Plan Comment: focus on dynamic sitting balance and lateral transfers. Safety Safety Devices Safety Devices in Place: Yes Type of Devices: Left in chair, Call light within reach AM-PAC Score AM-PAC Inpatient Mobility Raw Score: 12 Mobility Inpatient CMS G-Code Modifier: CL Goals Encounter Problems Encounter Problems (Active) Balance Patient will maintain dynamic sitting balance modified [place] 05/10 Start: 12/06/22 Expected End: 12/20/22 Mobility Propel w/c 150', level surface, modif indep including managing doorways and 90- deg turns Transfers Patient will perform bed mobility with modified independence in order to improve independence and prepare for out of bed mobility. Start: 12/06/22 Expected End: 12/20/22 OK to use siderail to roll, but would like to see supine to long sit or sitting EOB with adjusting HOB Transfers Patient will complete functional transfer lateral transfer supv Start: 12/06/22 Expected End: 12/20/22 1) modif indep bed to recliner 2) supv bed to either w/c or BSC (will coordinate with OT re: goals of clothing management) Education Education Given To: Patient Education Provided: PT Role, Plan of Care, Goals, Equipment Education Provided Comments: encouraged sidelying L hip extn. If possible, prone Skilled Clinical Factors: ordered from DMT drop arm BSC-would like to pt perform transfers with staff as opposed to using bed garcia. Provided theraband for UEs. Provided mesh netting as pt wants to attempt to simulate what she would do at home for toileting (plan is she will wear pads, not Depends; and likely dresses as opposed to pants). Therapy Time Individual Co-treatment Time In 1100 Time Out 1150 Minutes 50 Variance: 10 (equipment procurement) Patient s Physical Therapy Plan of Care supervision is transferred to [facility] Rehab Department Physical Therapist. PT wore mask and gloves throughout entire session with patient. Ludwin Zarate PT * Jose Chávez MD - 12/06/2022 10:12 AM EST Images from the original note were not included. Hospitalist Progress Note 12/06/2022 10:23 AM Subjective: Admit Date: 12/03/2022 PCP: Oj Maddox Interval History: pt feels better No new issues today Adult diet Regular @IODETAILS@ @[email or web address]@ Medications: amitriptyline, 100 mg, Oral, Nightly budesonide, 0.5 mg, Nebulization, Daily citalopram, 20 mg, Oral, Daily enoxaparin, 40 mg, SubCUTAneous, Daily gabapentin, 300 mg, Oral, Nightly meropenem, 2,000 mg, IntraVENous, q8h methocarbamol, 750 mg, Oral, 3 times per day mometasone-formoterol, 2 puff, Inhalation, BID pantoprazole, 40 mg, Oral, qAM AC polyethylene glycol (PEG) 3350, 17 g, Oral, Daily senna-docusate sodium, 2 tablet, Oral, Nightly tiotropium, 1 capsule, Inhalation, Daily vancomycin, 1,500 mg, IntraVENous, q12h Recent Labs 12/03/22183212/05/22 0133 12/06/22 0233 WBC 4.6 4.1 4.4 HGB 9.1* 9.4* 9.6* PLT 284 306 330 Recent Labs 12/03/22183312/05/22 0133 12/06/22 0233 NA 139 140 136 K 4.1 3.8 4.1 CL 104 107 103 CO2 29 26 28 BUN 10 14 13 CREATININE 0.59 0.59 0.58 GLUCOSE 108* 113* 193* No results for input(s): AST, ALT, BILITOT, ALKPHOS in the last 72 hours. No lab exists for component: ALB No results found for: TRIG, HDL, LDLCALC, CHOL Recent Labs 12/04/22 0149 INR 1.0 No results for input(s): CKTOTAL, CKMB, TROPONINI in the last 72 hours. Objective: Vitals: BP 130/69 (BP Location: Left arm, Patient Position: Lying) Pulse 86 Temp 35.8 C (96.4 F) (Temporal) Resp 16 Ht 5' 7.01 (1.702 m) Wt (!) 339 lb 3.2 oz (154 kg) SpO2 95% BMI 53.11 kg/m Pulse Ox: SpO2 Av.2 % Min: 92 % Max: 99 % Supplemental O2: O2 Flow Rate (L/min): 2 L/min General appearance: Alert and cooperative with exam Lungs: clear to auscultation bilaterally Heart: regular rate and rhythm Abdomen: soft, non-tender; bowel sounds normal; no masses, no organomegaly Extremities: B amputations LE noted LLE wound vac Neurologic: No obvious focal neurologic deficits. Assessment Principal Problem: Cellulitis of left lower extremity Active Problems: Surgical wound infection HLD (hyperlipidemia) Difficult intubation History of right below knee amputation (HCC) HTN (hypertension) Pansystolic murmur Obstructive sleep apnea syndrome Gastroesophageal reflux disease Cont abx for now--defer to ID ? long term care pharmacist iv S/p I&D Cont home meds otherwise Shoulder XR degenerative changes only See orders, continue POC Advance Directive: Full Code Jose Chávez MD, [facility] Hospitalist * Kristi Cross RPh - 12/06/2022 8:04 AM EST Pharmacy to Dose Vancomycin Progress Note Recent Labs 12/03/22 1834 12/05/22 0133 12/06/22 0233 BUN 10 14 13 CREATININE 0.59 0.59 0.58 Updated [employer]: [x] doses administered [x] SCr [] random level Current regimen vancomycin 1500 mg every 12 hours, predicted AUC = 525 mg/L*hr (goal 400-600 mg/L*hr), 10% chance of toxicity. Dose therapeutic. No dose adjustment. Could collect next random level on 12/11/22 unless AUC supra-/sub-therapeutic and/or change in renalfunction. Trend serum creatinine. Trend AUC using Baysian Modeling. Orders placed. DATE: 12/06/22 TIME: 8:04 AM Kristi Cross RPh Clinical Pharmacist Available via [employer] * John Moses MD - 12/06/2022 6:27 AM EST Orthopedic Progress Note Name: Siobhan Haas Date:12/06/2022 Attending:Jose Chávez MD Subjective Pt is s/p I&D of L AKA stump with wvac placement on 12/05/2022. She states that she is very positive this am about yesterday's surgery and is feeling well. Denies fever/chills, chest pain, SOB, newnumbness/tingling. AFNVSS. Objective Vitals: 12/05/22 1845 12/05/22 1900 12/05/22 19312/06/22 0611 BP: (!) 142/68 (!) 148/79 (!) 140/88 130/69 BP Location: Left arm Left arm Patient Position: Lying Lying Pulse: 82 87 88 84 Resp: 15 18 16 Temp: 36.6 C (97.9 F) 35.8 C (96.4 F) TempSrc: Temporal Temporal SpO2: 99% 97% 95% 95% Weight: Height: Physical Exam: General: NAD LLE Wound vac in place over AKA stump with intact suction-about 60cc bloody discharge in cannister SILT: to stump Motor +hip flex/ext/abd/add BCR to stump No ascending erythema LABS: Recent Labs 12/03/22 18312/05/22 0133 12/06/22 0233 WBC 4.6 4.1 4.4 HGB 9.1* 9.4* 9.6* HCT 28.5* 30.2* 30.3* PLT 284 306 330 Recent Labs 12/03/22 18312/05/22 0133 12/06/22 0233 NA 139 140 136 K 4.1 3.8 4.1 CL 104 107 103 CO2 29 26 28 BUN 10 14 13 CREATININE 0.59 0.59 0.58 CALCIUM 8.7 8.7 8.9 Recent Labs 12/04/22 0149 INR 1.0 Recent Labs 12/03/22183212/03/22 183 SEDRATE 62* -- CRP -- 23.2* No results for input(s): HCG in the last 72 hours. Assessment Siobhan is a 62 y.o.female s/p I&D of L AKA stump with wvac placement on 12/05/2022 Plan Plan for definitive vac mgmt of wound. No plans to RTOR Wound care c/s for vac changes MWF starting today NWB LLE Up with assistance PTOT Elevate LLE Antibiotics per ID Recommend long-term suppressive abx, appreciate recs Monitor Hgb Dressing: wvac, continue Neurovascular and skin checks Ok to resume DVT ppx Pain, medical management per primary Ortho recs: ok for dc after vac change on Sunday if long-term suppressive abx setup and pending vacoutput John Moses MD PGY1 Orthopaedic Surgery 12/06/2022 6:33 AM * Cristian Maxwell, DO - 12/05/2022 1:25 PM EST Images from the original note were not included. [facility] - Infectious Diseases Attending Progress Note Subjective: Following for cellulitis/OM of L AKA stump site. Overnight, patient developed itching after receiving cefepime; switched meropenem. She reports ongoing pain, swelling, and discomfort at LLE AKA amputation site. She denies f/c, n/v/d, SOB, cough, orabdominal pain. No further complaints at this time. Plan is for I&D today. Vital signs- HR 98, BP 86/48 Lab data- WBC 4.1. Hgb 9.4 Antimicrobial therapy- vancomycin, clindamycin, meropenem Micro reports- Skin CX from LLE + for GPC Discharge planning- TBD Code- FULL Objective: Vitals: Patient Vitals for the past 24 hrs: BP Temp Temp src Pulse Resp SpO2 12/05/22 1003 127/87 -- -- 98 -- -- 12/05/22 1001 (!) 86/48 36.2 C (97.1 F) Temporal 90 14 95 % 12/05/22 0514 (!) 145/92 36.1 C (96.9 F) Temporal 89 16 93 % 12/04/22 1602 134/89 36.4 C (97.5 F) Temporal 104 20 94 % Physical Exam Constitutional: General: She is not in acute distress. Appearance: Normal appearance. She is normal weight. She is not ill-appearing, toxic-appearing or diaphoretic. HENT: Head: Normocephalic and atraumatic. Nose: Nose normal. Mouth/Throat: Mouth: Mucous membranes are moist. Pharynx: Oropharynx is clear. No oropharyngeal exudate or posterior oropharyngeal erythema. Eyes: General: No scleral icterus. Extraocular Movements: Extraocular movements intact. Pupils: Pupils are equal, round, and reactive to light. Cardiovascular: Rate and Rhythm: Normal rate and regular rhythm. Pulses: Normal pulses. Heart sounds: Normal heart sounds. No murmur heard. No friction rub. No gallop. Pulmonary: Effort: Pulmonary effort is normal. No respiratory distress. Breath sounds: No wheezing, rhonchi or rales. Comments: Diminished breath sounds b/l Prolonged expiratory phase Abdominal: General: Abdomen is flat. Bowel sounds are normal. Palpations: Abdomen is soft. Tenderness: There is no abdominal tenderness. There is no guarding or rebound. Musculoskeletal: General: Swelling, tenderness, deformity and signs of injury present. Cervical back: Neck supple. Comments: s/p R BKA s/p L AKA LLE AKA site w/ erythema, swelling Skin: General: Skin is warm and dry. Capillary Refill: Capillary refill takes less than 2 seconds. Coloration: Skin is not pale. Findings: Erythema and lesion present. No rash. Neurological: General: No focal deficit present. Mental Status: She is alert. Psychiatric: Mood and Affect: Mood normal. Judgment: Judgment normal. Labs: Lab Results Component Value Date/Time NA 140 12/05/2022132 K 3.8 12/05/2022132 CL 107 12/05/2022132 CO2 26 12/05/2022132 BUN 14 12/05/2022132 CREATININE 0.59 12/05/2022132 CREATININE 0.70 02/14/2022 0918 GLUCOSE 113 (H) 12/05/2022132 CALCIUM 8.7 12/05/2022132 PROT 7.1 02/01/2022 0426 BILITOT 0.4 02/01/2022 042 ALKPHOS 80 02/01/2022 0426 AST 31 02/01/2022 0426 PROCAL 0.04 12/04/2022 0149 PROCAL 0.02 11/11/2022 0301 PROCAL 1.77 (H) 01/25/2022 06 Lab Results Component Value Date/Time WBC 4.1 12/05/2022132 HGB 9.4 (L) 12/05/2022132 HCT 30.2 (L) 12/05/2022132 PLT 306 12/05/2022132 GRANULOCYTES 66.9 02/14/2022 0918 LYMPHOPCT 33.1 12/05/2022132 MONOPCT 14.0 (H) 12/05/2022132 LABEOS 3.5 02/14/2022917 BASOPCT 1.0 12/05/2022132 NEUTROABS 1.9 12/05/2022132 Micro: 11/16 L tissue thigh CXs (+) for E fecalis, E cloacae, B fragilis 11/20 Occult blood x 1, stool (-) 11/22 Blood CX x2 NGTD 12/03 Blood CX x2 NGTD 12/03 L tissue thigh CX (+) for GPC Lines/Drains/Airways: 12/03 RUE PIV Radiography/Echo/Other: 12/03 XR knee 1/2V L Cortical irregularity identified about the distal femoral stem concerning for osteomyelitis, clinical correlation is recommended 12/03 XR femur L 2+V No evidence of acute osseous abnormality 12/03 XR shoulder 2+V L Degenerative changes Antimicrobials, Start/End Dates: 12/03-12/05 piperacillin/tazobactam 12/03-12/05 clindamycin 12/03- vancomycin 12/05 meropenem Impression: Ms. Haas is a 62 y/o F w/ PMH of LLE NF s/p debridement and L AKA, R BKA, COPD/asthma on home O2, prior b/l PE 08/2022 (AC on apixaban), FYA on BIPAP, GERD, HTN, OA, depression, fibromyalgia. [facility] [facility] 12/03 w/ severe pain and erythema of the LLE stump. Recently underwent L AKA 10/31 w/ multiple subsequent I&Ds, w/ the most recent on 11/21/22. Seen by [facility] ID service at the time;was tx'd for 2w for SSI of stump site. CXs from the previous debridement were (+) for E cloacae, E fecalis. Was tx'd w/ meropenem. After completion of IV therapy, she noticed increasing drainage and erythema from the area. XR of the LE showed cortical irregularity identified about the distal femoral stem concerning for OM. Orthopedics was consulted; plan is for I&D of the LLE on 12/05. The IDservice is following for cellulitis/OM of L AKA stump site. Plan: 1. Osteomyelitits of the left lower extremity - Patient presented w/ erythema, swelling, drainage of L AKA stump - XR on presentation shows signs consistent with osteomyelitis - Maintain therapy w/ IV vancomycin +meropenem; will d/c clindamycin - Orthopedics has been consulted; plan is for washout today - Will follow CX results and adjust accordingly 2. Hx of LLE infection s/p L AKA 3. Chronic obstructive pulmonary disease- on home O2 4. Obstructive sleep apnea- on BiPAP 5. Prior b/l PE 08/2022- AC on apixaban 6. Hx of R foot OM s/p R BKA 7. Gastroesophageal reflux disease 8. Stress urinary incontinence 9. Hypertension 10. Osteoarthritis 11. Seasonal allergies 12. Vertigo 13. Asthma 14. Depression 15. Fibromyalgia 16. Obesity Recommendations: 1. Maintain therapy w/ IV vancomycin + meropenem; will d/c clindamycin 2. Orthopedics has been consulted; plan is for washout today 3. Will follow CX results and adjust accordingly The ID service will continue to follow. Total time 35 minutes on this day of encounter includes counseling, coordinating plan of care, record and documentation review before and after visit including documentation and time not explicitly included on EMR time stamp for accounting for open encounter. Cristian Maxwell DO [facility] Infectious Diseases Office Tel. [phone] * Jose Chávez MD - 12/05/2022 11:23 AM EST Images from the original note were not included. Hospitalist Progress Note 12/05/2022 11:24 AM Subjective: Admit Date: 12/03/2022 PCP: Oj Maddox Interval History: pt feels better Some itching with cefepime overnight NPO diet NPO except: Sips of Water with Meds @[email or web address]@ @[email or web address]@ Medications: amitriptyline, 100 mg, Oral, Nightly budesonide, 0.5 mg, Nebulization, Daily citalopram, 20 mg, Oral, Daily clindamycin, 600 mg, IntraVENous, q6h [Held by provider] enoxaparin, 40 mg, SubCUTAneous, Daily gabapentin, 300 mg, Oral, Nightly meropenem, 2,000 mg, IntraVENous, q8h methocarbamol, 750 mg, Oral, 3 times per day mometasone-formoterol, 2 puff, Inhalation, BID pantoprazole, 40 mg, Oral, qAM AC polyethylene glycol (PEG) 3350, 17 g, Oral, Daily senna-docusate sodium, 2 tablet, Oral, Nightly tiotropium, 1 capsule, Inhalation, Daily vancomycin, 1,500 mg, IntraVENous, q12h Recent Labs 12/03/22 1833 12/05/22 0133 WBC 4.6 4.1 HGB 9.1* 9.4* PLT 284 306 Recent Labs 12/03/22 1834 12/05/22 0133 NA 139 140 K 4.1 3.8 CL 104 107 CO2 29 26 BUN 10 14 CREATININE 0.59 0.59 GLUCOSE 108* 113* No results for input(s): AST, ALT, BILITOT, ALKPHOS in the last 72 hours. No lab exists for component: ALB No results found for: TRIG, HDL, LDLCALC, CHOL Recent Labs 12/04/22 0149 INR 1.0 No results for input(s): CKTOTAL, CKMB, TROPONINI in the last 72 hours. Objective: Vitals: BP 127/87 (BP Location: Right arm, Patient Position: Sitting) Pulse 98 Temp 36.2 C (97.1 F) (Temporal) Resp 14 Ht 5' 7.01 (1.702 m) Wt (!) 339 lb 3.2 oz (154 kg) SpO2 95% BMI 53.11 kg/m Pulse Ox: SpO2 Av % Min: 93 % Max: 95 % Supplemental O2: General appearance: Alert and cooperative with exam Lungs: clear to auscultation bilaterally Heart: regular rate and rhythm Abdomen: soft, non-tender; bowel sounds normal; no masses, no organomegaly Extremities: B amputations LE noted LLE erythema better Neurologic: No obvious focal neurologic deficits. Assessment Principal Problem: Cellulitis of left lower extremity Active Problems: Surgical wound infection HLD (hyperlipidemia) Difficult intubation History of right below knee amputation (HCC) HTN (hypertension) Pansystolic murmur Obstructive sleep apnea syndrome Gastroesophageal reflux disease Cont abx for now--defer to ID Plan OR for I&D today Risk acceptable for necessary procedure without further testing Cont home meds otherwise Shoulder XR degenerative changes only See orders, continue POC Advance Directive: Full Code Jose Chávez MD, [facility] Hospitalist * Kristi Cross RPh - 12/05/2022 8:25 AM EST Pharmacy to Dose Vancomycin Progress Note Recent Labs 12/03/22 1834 12/05/22 0133 BUN 10 14 CREATININE 0.59 0.59 Updated InsightRx: [x] doses administered [x] SCr [] random level Current regimen vancomycin 1500 mg every 12 hours, predicted AUC = 525 mg/L*hr (goal 400-600 mg/L*hr), 10% chance of toxicity. No change in therapeutic dose. Could collect random level again on 12/11/22 unless change in AUC or clinical condition. Trend serum creatinine. Trend AUC using Baysian Modeling. Orders placed. DATE: 12/05/22 TIME: 8:25 AM Kristi Cross RPh Clinical Pharmacist Available via [employer] * Joanna Fox OT - 12/05/2022 7:02 AM EST Occupational Therapy Received order for OT eval and tx. Per chart, plan for OR this date. Will hold OT eval and re-attempt post-op as schedule permits. -PATTIE Acharya, OTR/L * Maximino Aceves JD, MD - 12/05/2022 6:28 AM EST Orthopedic Progress Note Name: Siobhan Haas Date:12/05/2022 Attending:Jose Chávez MD Subjective Pt tearful this morning about her shoulder bothering her. Found out that she has arthritis yesterday. AFVSS. Objective Vitals: 12/04/22 0526 12/04/22 0857 12/04/22 1602 12/05/22 0514 BP: (!) 140/93 134/89 (!) 145/92 BP Location: Left leg Left arm Patient Position: Lying Sitting Pulse: 89 104 89 Resp: 18 20 16 Temp: 35.8 C (96.5 F) 36.4 C (97.5 F) 36.1 C (96.9 F) TempSrc: Temporal Temporal Temporal SpO2: 96% 94% 93% Weight: Height: 1.702 m (5' 7.01) Physical Exam: General: NAD LLE Draining from central portion of wound. Area of erythema on anterior stump. SILT: to stump Motor +hip flex/ext/abd/add BCR to stump No ascending erythema LABS: Recent Labs 12/03/22183212/05/22 013 WBC 4.6 4.1 HGB 9.1* 9.4* HCT 28.5* 30.2* PLT 284 306 Recent Labs 12/03/22 18312/05/22 013 NA 139 140 K 4.1 3.8 CL 104 107 CO2 29 26 BUN 10 14 CREATININE 0.59 0.59 CALCIUM 8.7 8.7 Recent Labs 12/04/22 0149 INR 1.0 Recent Labs 12/03/22 1833 12/03/22 183 SEDRATE 62* -- CRP -- 23.2* No results for input(s): HCG in the last 72 hours. Assessment Siobhan is a 62 y.o.female L AKA surgical site infection s/p multiple I&Ds Plan NWB LLE NPO Plan for I&D wvac placement today LLE Preop labs complete Cleared per medicine Consented - on chart ID following - abx per ID team (on sched vanc) * Ludwin Zarate PT - 12/04/2022 1:34 PM EST Physical Therapy Plan is for I&D of L AKA tomorrow. Will follow post-op * Joanna Sandoval PA-C - 12/04/2022 12:51 PM EST Orthopedic Surgery Progress Note I had a long discussion with the patient regarding the surgical treatment option of left lower extremity irrigation and debridement with possible revision of above-knee amputation and possible wound vacuum application. The risks and benefits of surgery were discussed with the patient at length. Patient conveyed understanding. [...] nearby anatomic structures. Risks associated with anesthesia After discussion, the patient wished to proceed with left lower extremity irrigation and debridement with possible revision of above-knee amputation and possible wound vacuum application. . -Please hold anticoagulation in anticipation of OR tomorrow -NPO at midnight Orthopaedic surgery will follow. Please page manager acquisition orthopaedic resident for questions or concerns. * Jose Chávez MD - 12/04/2022 11:32 AM EST Images from the original note were not included. Hospitalist Progress Note 12/04/2022 11:34 AM Subjective: Admit Date: 12/03/2022 PCP: Oj Maddox Interval History: pt feels better No overnight issues. Denies chest pain, sob, abdominal pain, nausea, vomiting, diarrhea, constipation, fevers, or chills. Adult diet Regular NPO diet NPO except: Sips of Water with Meds @[email or web address]@ @[email or web address]@ Medications: amitriptyline, 100 mg, Oral, Nightly budesonide, 0.5 mg, Nebulization, Daily citalopram, 20 mg, Oral, Daily clindamycin, 600 mg, IntraVENous, q6h [Held by provider] enoxaparin, 40 mg, SubCUTAneous, Daily gabapentin, 300 mg, Oral, Nightly methocarbamol, 750 mg, Oral, 3 times per day mometasone-formoterol, 2 puff, Inhalation, BID pantoprazole, 40 mg, Oral, qAM AC piperacillin-tazobactam, 3.375 g, IntraVENous, q8h polyethylene glycol (PEG) 3350, 17 g, Oral, Daily senna-docusate sodium, 2 tablet, Oral, Nightly tiotropium, 1 capsule, Inhalation, Daily vancomycin, 1,500 mg, IntraVENous, q12h Recent Labs 12/03/22 1833 WBC 4.6 HGB 9.1* PLT 284 Recent Labs 12/03/22 1834 NA 139 K 4.1 CL 104 CO2 29 BUN 10 CREATININE 0.59 GLUCOSE 108* No results for input(s): AST, ALT, BILITOT, ALKPHOS in the last 72 hours. No lab exists for component: ALB No results found for: TRIG, HDL, LDLCALC, CHOL Recent Labs 12/04/22 0149 INR 1.0 No results for input(s): CKTOTAL, CKMB, TROPONINI in the last 72 hours. Objective: Vitals: BP (!) 140/93 Pulse 89 Temp 35.8 C (96.5 F) (Temporal) Resp 18 Ht 5' 7.01 (1.702 m) Wt (!) 339 lb 3.2 oz (154 kg) SpO2 96% BMI 53.11 kg/m Pulse Ox: SpO2 Av % Min: 93 % Max: 98 % Supplemental O2: General appearance: Alert and cooperative with exam Lungs: clear to auscultation bilaterally Heart: regular rate and rhythm Abdomen: soft, non-tender; bowel sounds normal; no masses, no organomegaly Extremities: B amputations LE noted LLE erythema better Neurologic: No obvious focal neurologic deficits. Assessment Principal Problem: Cellulitis of left lower extremity Active Problems: Surgical wound infection HLD (hyperlipidemia) Difficult intubation History of right below knee amputation (HCC) HTN (hypertension) Pansystolic murmur Obstructive sleep apnea syndrome Gastroesophageal reflux disease Cont abx for now Plan OR for I&D Risk acceptable for necessary procedure without further testing Cont home meds otherwise See orders, continue POC Advance Directive: Full Code Jose Chávez MD, [facility] Hospitalist * Riddhialf Smith, [facility] - 12/04/2022 10:17 AM EST [facility] ADMISSION MEDICATION RECONCILIATION Date: 12/04/22 Room:[address] Patient Name: Siobhan Haas Allergies: Amlodipine, Clonazepam, Ketamine, Lisinopril, and Vancomycin Age: 62 y.o. Sex: female Note: New information has been obtained regarding the patient s medications. The medication reconciliation has been updated to reflect this. Please consider making these changes/additions if appropriate: Recommendations: Home medications to restart if there is not a current contraindication: Vitamin C 1 tab every other day with Iron Ferrous sulfate 325mg every other day with vitamin C Vit D3 50,000units weekly on Sunday (ONLY stock Vit D2 (ergocalciferol) @ [facility] - please use D2 if ordering while admitted - NO vit D level in EMR) *FYI* - patient uses Budesonide 0.25mg2/mL nebulizer BID PRN for when she has a COPD/Asthma flare (last filled 03/23 for 90 day supply - ACTUAL Rx for 1 vial BID..... Currently ordered Budesonide 0.5mg/2ml qday as an inpatient.) Medications originally on the home list that patient has NOT recently filled. If patient to take ANY of these @ [place], please write Rx's: Amitriptyline 100mg at bedtime (patient states she's still taking med prior to admission; HOWEVER, verified with her pharmacy ([facility]) - last filled 08/09 for 90 day supply, currently ordered as aninpt) Symbicort 160/4.5mcg 2 puffs BID (patient states she's still using med prior to admission; HOWEVER,verified with her pharmacy ([facility]) - last filled 10/04 for 30 day supply, currently ordered Dulera autosub as an inpt) Celexa 40mg qday (patient states she's still taking med prior to admission; HOWEVER, verified with her pharmacy ([facility]) - last filled 03/23for 90 day supply, currently ordered 20mg qday as an inpt) Flonase 1 spray BID (patient states she's still using med prior to admission; HOWEVER, verified with her pharmacy ([facility]) med NEVER filled) Gabapentin 300mg at bedtime (patient states med started this admission, not taking prior to admission; last filled 03/09 #360 caps/90 day supply - Rx at that time was 1 cap 3 times per day. Currently ordered 300mg at bedtime as an inpatient) Lidocaine 4% patch qday (patient states she's NOT using med prior to admission & UNABLE to verify ANY fills) Ativan 0.5mg 1-2 tabs q8h prn (patient states she's still taking med prior to admission; HOWEVER, verified with her [facility] - med has NEVER been filled in last 2 years; patient has filled Xanax 0.5mg 1-2 tabs q8h prn (last filled 09/18 #63/21 day supply) - currently ordered Lorazepam 0.5mg q8h prnas an inpt) Omeprazole 40mg qday (patient states she's still taking med prior to admission; HOWEVER, verified with her pharmacy ([facility]) - last filled 03/20 for 90 day supply, currently ordered Protonix autosub as an inpt) Spiriva 18mcg qday (patient states she's NOT using prior to admission; UNABLE to verify ANY fills; currently ordered as an inpt) Pursue the following to decrease adherence barriers: Please send any new Rx's to [facility] [place] per patient's request. Please page/call with questions. Date: 12/04/22 Time: 10:18 AM 12/04/2022 10:32 AM Riddhi Smith PharmD * Joanna Mcguire, ANTWAN - 12/04/2022 9:50 AM EST Nutrition Assessment Type and Reason for Visit: Initial, Positive Nutrition Screen Nutrition Recommendations/Plan: Continue Regular diet order. At baseline she normally consumes around 50% of meals and two protein shakes/day. Her last A1C was 5.4% (11/17/22). She does not need a carb choice diet order. Continue regular to support adequate PO intake. Per MNT protocol will provide with Ensure Max Protein (150 kcal and 30 g pro) BID to support increased protein needs r/t to wound healing. Provided encouragement for continued supplement use. RD to follow weekly and assess overall nutrition status. Malnutrition Assessment: Malnutrition Status: At risk for malnutrition (Comment) (will continue risk for malnutrition due tore-admit after prolonged hospitalization in Nov 2021. low appetite at baseline and chronic wounds) Context: Acute Illness Findings of the 6 clinical characteristics of malnutrition: Energy Intake: No significant decrease in energy intake (at baseline low appetite. 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 She called Dr. Mercado who recommended her to go to ER. She was evaluated by orthopedics, and planning on wash out surgery on Sunday. Labs in the ED, LA is 1.2, ESR is 62, CRP is 23.2, Ortho consulted, plan for repeat I&D and wound vac placement of L AKA. ID consulted. She was started on clindamycin and zosyn. RD was referred for wounds and poor PO intake. On the pt last admit from 11/10 - 11/27, she was followed by RD. Considered at risk for malnutrition at the last admit. RD spoke with Siobhan, she reported a poor appetite at baseline. At home she normally has a pemier protein shake at breakfast and dinner and then a normal meal at lunch. Encouraged use of ONS. Reports that most of her meals are prepared at home. Requesting Ensure Max protein BID this admit, will order. She gave positive feedback to menu items. Stating that eating 50% of meals here is normal for her. Reported 50% of breakfast today. After reviewing hx and A1C she does not need a carb choice diet order. Recommend continuing with Regular. Estimated Daily Nutrient Needs: Energy Requirements Based On: Kcal/kg Weight Used for Energy Requirements: [place] Weight for Energy Calculation (kg): 52 kg Total Energy Requirements (kcals/day): 9016-2463 kcal/day(25-30 kcal/kg) Weight Used for Protein Requirements: [place] Weight in Kg Used for Protein Requirements: 52 kg Estimated Total Protein (g/day): 62-80 g pro (1.2-1.5 g pro/kg) Estimated Daily Total Fluid (ml/day): per MD Nutrition Related Findings: +I/O. non-pitting edema. Rudi 15. GI WDL, last BM on 12/03. meds and labs reviewed, , LA is 1.2, ESR is 62, CRP is 23.2. On antibiotics. Wound Type: Multiple (previous AKA site) Current Nutrition Therapies: Adult diet Regular NPO diet NPO except: Sips of Water with Meds Current Oral Intake Average Meal Intake: 26-50% Average Supplements Intake: None Ordered Anthropometric Measures: Height: 170.2 cm (5' 7.01) Current Body Weight: 153 kg (337 lb 4.9 oz) (Bed scale 12/03) Weight Source: Bed Scale Admission Body Weight: 153 kg (337 lb 4.9 oz) Usual Body Weight: 159 kg (350 lb) (per review of EPIC weight hx) % Weight Change (Calculated): -3.6 [place] Body Weight (lbs) (Calculated): 135 lbs [place] Body Weight (Kg) (Calculated): 61 kg % [place] Body Weight (Calculated): 249.9 % BMI (kg/m2) (Calculated): 52.8 Weight Adjustment For: Amputation % Weight Adjustment: 5.9 - BKA, 10.1 - AKA Total Adjusted Percentage (Calculated): 16 Adjusted [place] Body Weight (lbs) (Calculated): 113.4 lbs Adjusted [place] Body Weight (kg) (Calculated): 51.55 kg Adjusted BMI (kg/m2) (Calculated): 61.2 BMI Categories: Obese Class 3 (BMI 40.0 or greater) Nutrition Diagnosis: Increased nutrient needs related to other (comment) (continued wound infection to AKA site) as evidenced by wounds Nutrition Interventions: Nutrition Education/Counseling: No recommendation at this time (reviewed importance of high proteinintake to support wound healing) Coordination of Nutrition Care: Continue to monitor while inpatient Goals: Goals: PO intake 50% or greater, by next RD assessment Nutrition Monitoring and Evaluation: Behavioral-Environmental Outcomes: None Identified Food/Nutrient Intake Outcomes: Food and Nutrient Intake, Supplement Intake Physical Signs/Symptoms Outcomes: Biochemical Data, Nutrition Focused Physical Findings, Skin, Weight, GI Status, Fluid Status or Edema Discharge Planning: Continue Oral Nutrition Supplement Joanna Mcguire RD Contact: [employer] Chat * Dudley Holt MD - 12/03/2022 11:45 PM EST Images from the original note were not included. Ortho to bedside for repeat exam LLE stable, No significant progression of the erythema. This is close to patient's baseline lymphedema. VSS, NAD, No systemic signs of illness L shoulder XR: Moderate glenohumeral arthritis with marginal osteophytes and goats warren deformity of the humeral head. Plan: -Plan for OR likely on Sunday for repeat I&D and wound vac placement of L AKA SSI. LA is 1.2, ESR is 62, CRP is 23.2, WBC is 4.6, glucose is 108. No acute concerning signs of necrotizing fascitis at this time. -Started Vancomycin, Zosyn and Clindamycin -NPO@[place] on 12/05 -Infectious disease consult for Abx management -Clearance/optimization pending -Consented -Add pending -Labs pending -Bcx pending -Ortho will rpt a skin check at 2200 on 12/03 -NWB at baseline -Admitted to medicine -Pain control and medical management per medicine -Please comment on clearance in case of OR, page ortho pgr [phone] with clearance status Dudley Holt MD Orthopaedic Surgery PGY2 12/03/2022 11:46 PM documented in this [facility]03-14-2023 Note* Care Coordination - Kierra Lobato - 12/12/2022 9:27 AM EDT Updated therapy progress notes, IV Antibiotic order and current MAR sent via [facility] to [facility] per TCC request. TCC notified. [place] [id number] Note* Care Coordination - Kierra Lobato - 12/12/2022 9:27 AM EDT Updated therapy progress notes, IV Antibiotic order and current MAR sent via [facility] to [facility] per TCC request. TCC notified. [id number] Note* Care Coordination - Isabela Cummins RN - 12/12/2022 7:50 AM EDT Auth requested to be started for [facility]. [place] [id number] Note* Care Coordination - Isabela Cummins RN - 12/12/2022 7:50 AM EDT Auth requested to be started for [facility]. [place] [id number] Note* Care Coordination - Kierra Lobato - 12/11/2022 3:32 PM EDT Updated clinical and therapy progress notes sent via [facility] to [facility] per [facility] request. TCC notified. [facility] [id number] Note* Care Coordination - Kierra Lobato - 12/11/2022 3:32 PM EDT Updated clinical and therapy progress notes sent via [facility] to [facility] per [facility] request. TCC notified. [facility] [id number] Consult note* Vielka Hartmann RPh - 12/11/2022 3:02 PM EDTAssociated Order(s): PHARMACY TO DOSE VANCO; PHARMACY TO DOSE VANCO Vancomycin therapy has been discontinued by Dr. Cristian Maxwell on 12/11/22. Thank you for the consult. Pharmacy signing off for vancomycin dosing. Vielka Hartmann RPh, PharmD, BCPS Date: 12/11/22 Time: 3:03 PM [facility] [id number] Consult note* Vielka Hartmann RPh - 12/11/2022 3:02 PM EDTAssociated Order(s): PHARMACY TO DOSE VANCO; PHARMACY TO DOSE VANCO Vancomycin therapy has been discontinued by Dr. Cristian Maxwell on 12/11/22. Thank you for the consult. Pharmacy signing off for vancomycin dosing. Vielka Hartmann RPh, PharmD, BCPS Date: 12/11/22 Time: 3:03 PM * Cristian Monteiromanjit Maxwell, DO - 12/04/2022 3:46 PM ESTAssociated Order(s): IP CONSULT TO INFECTIOUS DISEASES Images from the original note were not included. [facility] - Infectious Diseases Attending Consult Note Reason for Consult: Osteomyelitits of the left lower extremity History of Present Illness: Ms. Haas is a 62 y/o F w/ PMH of LLE NF s/p debridement and L AKA, R BKA, COPD/asthma on home O2, prior b/l PE 08/2022 (AC on apixaban), FAY on BIPAP, GERD, HTN, OA, depression, fibromyalgia. She presented to [facility] ED 12/03 w/ severe pain and erythema of the LLE stump. Pt recently underwent L AKA 10/31 w/ multiple subsequent I&Ds, w/ the most recent on 11/21/22. She was seen by [facility] ID service at the time; was tx'd for 2w for SSI of stump site. CXs from the previous debridement were (+) for E cloacae, E fecalis. Was tx'd w/ meropenem. After completion of IV therapy, she noticed increasing drainage and erythema from the area. ED w/u was notable for HR 90s, BP 152/78, WBC 4.6, Hgb 9.1, LA 1.2, ESR/CRP 62/23. XR of the LE showed cortical irregularity identified about the distal femoral stem concerning for OM. She was started on IV vancomycin, piperacillin/tazobactam, and clindamycin. Orthopedics was consulted; plan is for I&D of the LLE on 12/05. The ID service is consulted for cellulitis/OM of L AKA stump site. Vitals are notable for HR 100, BP 140/93. Labs show WBC 4.6, Hgb 9 .1. During my assessment, patient reports ongoing pain, swelling, and discomfort at LLE AKA amputation site. She denies f/c, n/v/d, SOB, cough, or abdominal pain. No further complaints at this time. Medical history: LLE NF s/p debridement and L AKA, R BKA, COPD/asthma on home O2, prior b/l PE 08/2022 (AC on apixaban), FAY on BIPAP, GERD, HTN, OA, depression, fibromyalgia Surgical history: L TKA 2012, tonsillectomy, wisdom tooth extraction, lipoma resection, hysterectomy, LLE I&D, jennifer abdominoplasty, incontinence surgery, R BKA, L AKA 10/31 Family history: Pancreatic CA in mother and father Social history: Former smoker; quit 1981; denies ETOH or illicit drug use Allergies: amlodipine, clonazepam, ketamine, lisinopril, vancomycin Code status: FULL 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 ([facility]) 07/27/2020 Asthma Cellulitis Constipation Depression Difficult intubation 12/04/2022 Fibromyalgia GERD (gastroesophageal reflux disease) Hx of right BKA ([facility]) ([facility]) Hypertension Morbidly obese ([facility]) ([facility]) 02/03/2019 BMI 50.52 On home O2 FAY treated with BiPAP Osteoarthritis Osteomyelitis of right foot ([facility]) SCHEDULED FOR THE SURGERY ON 02/11/2019 Seasonal [...] Right 02/11/2019 FOOT SURGERY Right 2019 [place] FOOT SURGERY Right 04/08/2019 I&D right foot with antibiotic spacer FOOT SURGERY Right 04/24/2019 I&D;, external fixator FOOT SURGERY Left 08/04/2021 peroneus longus tenolysis - Dr Gamino HYSTERECTOMY 1996 INCISION AND DRAINAGE OF WOUND Left 11/21/2022 LLE INCONTINENCE SURGERY 11/15/2015 synthetic mid urethral sling,cystoscopy [...] Right 05/06/2019 Right Below Knee Amputation (CPT 24352), #2 Excisional debridement right iliac crest (wound 7 cm length, 3 cm width, 7 cm depth) TONSILLECTOMY (HISTORICAL) TOTAL KNEE ARTHROPLASTY Left 2012 ARTHROSCOPY FIRST AND KNEE REPLACED WISDOM TOOTH EXTRACTION WOUND DEBRIDEMENT Left 10/28/2021 irrigation and debridment LLE Current Medications: Current Facility-Administered Medications Medication Dose Route Frequency Provider Last Rate Last Admin acetaminophen (Tylenol) tablet 650 mg 650 mg Oral q4h PRN Matar Matar Or acetaminophen (Tylenol) suppository 650 mg 650 mg Rectal q4h PRN Matar Matar albuterol 108 (90 Base) MCG/ACT inhaler 2 puff 2 puff Inhalation q4h PRN Matar Matar amitriptyline (Elavil) tablet 100 mg 100 mg Oral Nightly Matar Matar 100 mg at 12/04/22 0135 budesonide (Pulmicort) 0.5 MG/2ML nebulizer solution 0.5 mg 0.5 mg Nebulization Daily Matar Matar cefepime (Maxipime) 2,000 mg in sodium chloride 0.9 % 50 mL IVPB Mini-Bag Plus 2,000 mg [id number] Cristian Maxwell DO 2,000 mg at 12/04/22 1405 citalopram (CeleXA) tablet 20 mg 20 mg Oral Daily Matar Matar 20 mg at 12/04/22 0854 clindamycin in D5W (Cleocin) IVPB 600 mg 600 mg IntraVENous q6h Kevan Parekh MD 100 mL/hr at 12/04/22 1406 600 mg at 12/04/22 1406 [Held by provider] enoxaparin (Lovenox) syringe 40 mg 40 mg SubCUTAneous Daily Matar Matar gabapentin (Neurontin) capsule 300 mg 300 mg Oral Nightly Matar Matar 300 mg at 12/04/22 0134 HYDROmorphone (Dilaudid) injection 0.5 mg 0.5 mg IntraVENous q4h PRN Matar Matar 0.5 mg at 854 Or HYDROmorphone (Dilaudid) injection 1 mg 1 mg IntraVENous q4h PRN Matar Matar 1 mg at 12/04/22 0521 LORazepam (Ativan) tablet 0.5 mg 0.5 mg Oral q8h PRN Matar Matar melatonin tablet 5 mg 5 mg Oral Nightly PRN Matar Matar methocarbamol (Robaxin) tablet 750 mg 750 mg Oral 3 times per day Matar Matar 750 mg at 12/04/22 1352 mometasone-formoterol (Dulera 200) 200-5 MCG/ACT inhaler 2 puff 2 puff Inhalation BID Matar Matar 2puff at 12/04/22 0901 ondansetron ODT (Zofran-ODT) disintegrating tablet 4 mg 4 mg Oral q8h PRN Matar Matar Or ondansetron (Zofran) injection 4 mg 4 mg IntraVENous q6h PRN Matar Matar oxyCODONE-acetaminophen (Percocet) 5-325 MG per tablet 2 tablet 2 tablet Oral q6h PRN Jose Chávez MD 2 tablet at 12/04/22 1352 pantoprazole (ProtoNix) EC tablet 40 mg 40 mg Oral qAM AC Matar Matar 40 mg at 12/04/22 0522 polyethylene glycol (PEG) 3350 (Miralax) packet 17 g 17 g Oral Daily Matar Matar 17 g at 12/04/22 0854 senna-docusate sodium (Senokot-S) 8.6-50 MG tablet 2 tablet 2 tablet Oral Nightly Matar Matar 2 tablet at 12/04/22 0134 tiotropium (Spiriva) 18 MCG per inhalation capsule 18 mcg 1 capsule Inhalation Daily Matar Matar 18mcg at 12/04/22 0854 vancomycin (Vancocin) 1,500 mg in dextrose 5 % 250 mL IVPB 1,500 mg IntraVENous q12h Jose Chávez MD Allergies: Allergies Allergen Reactions Amlodipine Swelling Clonazepam [...] Types: Cigarettes Quit date: 10/01/1981 Years since quittin.2 Smokeless tobacco: Never Vaping Use Vaping Use: Never used Substance and Sexual Activity Alcohol use: Not Currently Drug use: No Sexual activity: Yes Partners: Male Other Topics Concern Not on file Social History Narrative Has been in rehab facility in [place] Lives alone, son close Friends help Social Determinants of Health Financial Resource Strain: Not on file Food Insecurity: Not on file Transportation Needs: No Transportation Needs Lack of Transportation (Medical): No Lack of Transportation (Non-Medical): No Physical Activity: Not on file Stress: Not on file Social Connections: Not on file Intimate Partner Violence: Not At Risk Fear of Current or Ex-Partner: No Emotionally Abused: No Physically Abused: No Sexually Abused: No Housing Stability: Unknown Unable to Pay for Housing in the Last Year: No Number of Places Lived in the Last Year: Not on file Unstable Housing in the Last Year: No Family History: Family History Problem Relation Name Age of Onset Pancreatic cancer Mother Pancreatic cancer Father Review of Systems: Review of Systems Constitutional: Negative for appetite change, chills, diaphoresis, fatigue and fever. Respiratory: Negative for cough, shortness of breath and wheezing. Cardiovascular: Negative for palpitations and leg swelling. Gastrointestinal: Negative for abdominal distention, abdominal pain, nausea and vomiting. Musculoskeletal: Negative for arthralgias, joint swelling and myalgias. Skin: Positive for color change, rash and wound. Negative for pallor. Vitals: Patient Vitals for the past 24 hrs: BP Temp Temp src Pulse Resp SpO2 Height Weight 12/04/22 0857 -- -- -- -- -- -- 5' 7.01 (1.702 m) -- 12/04/22 0526 (!) 140/93 35.8 C (96.5 F) Temporal 89 18 96 % -- -- 12/04/22 0055 127/75 36.9 C (98.4 F) Oral 100 18 98 % -- (!) 339 lb 3.2 oz (154 kg) 12/03/22 2349 (!) 127/98 -- -- 102 16 93 % -- -- 12/03/22 2227 (!) 148/92 -- -- 95 20 94 % -- -- 12/03/22 2127 (!) 160/103 -- -- 100 18 94 % -- -- 12/03/222013 136/75 -- -- 98 20 94 % 5' 7 (1.702 m) (!) 340 lb (154 kg) 12/03/22 1914 (!) 144/60 -- -- 97 16 95 % -- -- 12/03/22 1713 (!) 152/78 36.9 C (98.4 F) Oral 96 16 96 % -- (!) 340 lb (154 kg) Physical Exam: Physical Exam Constitutional: General: She is not in acute distress. Appearance: Normal appearance. She is obese. She is not ill-appearing, toxic- appearing or diaphoretic. HENT: Head: Normocephalic and atraumatic. Nose: Nose normal. Mouth/Throat: Mouth: Mucous membranes are moist. Pharynx: Oropharynx is clear. No oropharyngeal exudate or posterior oropharyngeal erythema. Eyes: General: No scleral icterus. Extraocular Movements: Extraocular movements intact. Pupils: Pupils are equal, round, and reactive to light. Cardiovascular: Rate and Rhythm: Normal rate and regular rhythm. Pulses: Normal pulses. Heart sounds: Normal heart sounds. No murmur heard. No friction rub. No gallop. Pulmonary: Effort: Pulmonary effort is normal. No respiratory distress. Breath sounds: No wheezing, rhonchi or rales. Comments: Diminished breath sounds b/l Prolonged expiratory phase Abdominal: General: Abdomen is flat. Bowel sounds are normal. Palpations: Abdomen is soft. Tenderness: There is no abdominal tenderness. There is no guarding or rebound. Musculoskeletal: General: Swelling, tenderness, deformity and signs of injury present. Normal range of motion. Cervical back: Neck supple. Comments: s/p R BKA s/p L AKA LLE AKA site w/ erythema, swelling Skin: General: Skin is warm and dry. Capillary Refill: Capillary refill takes less than 2 seconds. Coloration: Skin is not pale. Findings: Erythema, lesion and rash present. Neurological: General: No focal deficit present. Mental Status: She is alert. Psychiatric: Mood and Affect: Mood normal. Judgment: Judgment normal. Labs: Lab Results Component Value Date/Time NA 139 12/03/2022 1834 K 4.1 12/03/2022 1834 CL 104 12/03/2022 1834 CO2 29 12/03/2022 1834 BUN 10 12/03/2022 1834 CREATININE 0.59 12/03/2022 1834 CREATININE 0.70 02/14/2022 0918 GLUCOSE 108 (H) 12/03/2022 1834 CALCIUM 8.7 12/03/2022 1834 PROT 7.1 02/01/2022 0426 BILITOT 0.4 02/01/2022 0426 ALKPHOS 80 02/01/2022 0426 AST 31 02/01/2022 0426 PROCAL 0.04 12/04/2022 0149 PROCAL 0.02 11/11/2022 0301 PROCAL 1.77 (H) 01/25/2022 0618 Lab Results Component Value Date/Time WBC 4.6 12/03/2022 1833 HGB 9.1 (L) 12/03/2022 1833 HCT 28.5 (L) 12/03/2022 183 PLT 284 12/03/2022 183 GRANULOCYTES 66.9 02/14/2022 0918 LYMPHOPCT 31.5 12/03/2022 1833 MONOPCT 13.3 (H) 12/03/2022 183 LABEOS 3.5 02/14/2022 0918 BASOPCT 1.0 12/03/2022 183 NEUTROABS 2.2 12/03/2022 1833 Micro: 11/16 L tissue thigh CXs (+) for E fecalis, E cloacae, B fragilis 11/20 Occult blood x 1, stool (-) 11/22 Blood CX x2 NGTD 12/03 Blood CX x2 NGTD 12/03 L tissue thigh CX (+) for GPC Lines/Drains/Airways: 12/03 RUE PIV Radiography/Echo/Other: 12/03 XR knee 1/2V L Cortical irregularity identified about the distal femoral stem concerning for osteomyelitis, clinical correlation is recommended 12/03 XR femur L 2+V No evidence of acute osseous abnormality 12/03 XR shoulder 2+V L Degenerative changes Antimicrobials, Start/End Dates: 12/03- vancomycin 12/03- piperacillin/tazobactam 12/03- clindamycin Impression: Ms. Haas is a 62 y/o F w/ PMH of LLE NF s/p debridement and L AKA, R BKA, COPD/asthma on home O2, prior b/l PE 08/2022 (AC on apixaban), FAY on BIPAP, GERD, HTN, OA, depression, fibromyalgia. Presented to [facility] ED 12/03 w/ severe pain and erythema of the LLE stump. Recently underwent L AKA 10/31 w/ multiple subsequent I&Ds, w/ the most recent on 11/21/22. Seen by [facility] ID service at the time;was tx'd for 2w for SSI of stump site. CXs from the previous debridement were (+) for E cloacae, E fecalis. Was tx'd w/ meropenem. After completion of IV therapy, she noticed increasing drainage and erythema from the area. XR of the LE showed cortical irregularity identified about the distal femoral stem concerning for OM. On IV vancomycin, piperacillin/tazobactam, and clindamycin. Orthopedics was consulted; plan is for I&D of the LLE on 12/05. The ID service is consulted for cellulitis/OM of L AKA stump site. Plan: 1. Osteomyelitits of the left lower extremity - Patient presented w/ erythema, swelling, drainage of L AKA stump - XR on presentation shows signs consistent with osteomyelitis - Maintain therapy w/ IV vancomycin and clindamycin; d/c piperacillin/tazobactam and start cefepime - Orthopedics has been consulted; plan is for washout 12/05 - Will follow CX results and adjust accordingly 2. Hx of LLE infection s/p L AKA 3. Chronic obstructive pulmonary disease- on home O2 4. Obstructive sleep apnea- on BiPAP 5. Prior b/l PE 08/2022- AC on apixaban 6. Hx of R foot OM s/p R BKA 7. Gastroesophageal reflux disease 8. Stress urinary incontinence 9. Hypertension 10. Osteoarthritis 11. Seasonal allergies 12. Vertigo 13. Asthma 14. Depression 15. Fibromyalgia 16. Obesity Recommendations: 1. Continue IV vancomycin and clindamycin 2. d/c piperacillin/tazobactam and start cefepime based on previous CX results 3. Orthopedics has been consulted; plan is for washout 12/05 4. Will follow CX results and adjust accordingly Thank you for the consult. The ID service will continue to follow. Total time 75 minutes on this day of encounter includes counseling, coordinating plan of care, record and documentation review before and after visit including documentation and time not explicitly included on EMR time stamp for accounting for open encounter. Cristian Maxwell DO [facility] Infectious Diseases Office Tel. [phone] * Rusty Mercado MD - 12/03/2022 8:24 PM EST Images from the original note were not included. Ortho Consult Patient: Siobhan Haas Date of : 1960 Acct: [id number] PCP: Oj Maddox Date of Admission: 12/03/2022 Date of Service: Pt seen/examined on 12/03/2022 Chief Complaint: Left AKA wound pain History Of Present Illness: This is a 62 y.o. female s/p AKA and several rpt I&Ds most recentlyon 11/21/22. Upon discharge, patient had a PICC and was sent out w/ IV abx. She reports she finishedher course of IV abx on and the PICC was removed on Sunday. Daughter states yesterday, she started noticing erythema surrounding the prior surgical site. She also stated she saturated several ABD pads w/ serosanguinous, olivas colored fluid. This morning, the pain increased substantially and the erythema began increasing along her incision site and thigh. She denies fever, chills, or SOB. Also complaining of acute on chronic left shoulder pain. Has been able to use it with full range ofmotion, but states it has been sore prior to the onset of her infections. Patient has had a prior hx of PEs and had a superficial venous thrombosis during her last admission. Patient is known to Dr. Mercado. Patient ambulation status: wheelchair bound Antiplatelets/Anticoagulation includes: Eliquis Hx from chart and/or Pt. 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 ([facility]) 07/27/2020 Asthma Cellulitis Constipation Depression Fibromyalgia GERD (gastroesophageal reflux disease) Hx of right BKA ([facility]) ([facility]) Hypertension Morbidly obese ([facility]) ([facility]) 02/03/2019 BMI 50.52 On home O2 FAY treated with BiPAP Osteoarthritis Osteomyelitis of right foot ([facility]) SCHEDULED FOR THE SURGERY ON 02/11/2019 Seasonal [...] Right 02/11/2019 FOOT SURGERY Right 2019 [place] FOOT SURGERY Right 04/08/2019 I&D right foot with antibiotic spacer FOOT SURGERY Right 04/24/2019 I&D;, external fixator FOOT SURGERY Left 08/04/2021 peroneus longus tenolysis - Dr Gamino HYSTERECTOMY 1997 INCISION AND DRAINAGE OF WOUND Left 11/21/2022 LLE INCONTINENCE SURGERY 11/15/2015 synthetic mid urethral sling,cystoscopy [...] Right 05/06/2019 Right Below Knee Amputation (CPT 12258), #2 Excisional debridement right iliac crest (wound 7 cm length, 3 cm width, 7 cm depth) TONSILLECTOMY (HISTORICAL) TOTAL KNEE ARTHROPLASTY Left 2012 ARTHROSCOPY FIRST AND KNEE REPLACED WISDOM TOOTH EXTRACTION WOUND DEBRIDEMENT Left 10/28/2021 irrigation and debridment LLE Home Medications: Prior to Admission medications Medication Sig Start Date End Date Taking? Authorizing Provider acetaminophen (Tylenol) 500 MG tablet Take 2 tablets (1,000 mg) by mouth in the morning and 2 tablets (1,000 mg) at noon and 2 tablets (1,000 mg) before bedtime. Do all this for 10 days. 11/27/22 12/07/22 Lulú Zhao MD albuterol (2.5 MG/3ML) 0.083% nebulizer solution 2.5 mg. 03/23/22 Historical Provider, albuterol 108 (90 Base) MCG/ACT inhaler INHALE 2 PUFFS FOUR TIMES DAILY NEEDED FOR WHEEZING 03/23/22 Historical Provider, amitriptyline (Elavil) 100 MG tablet 08/09/22 Historical Provider, apixaban (Eliquis) 5 MG tablet Take 1 tablet (5 mg) by mouth 2 times daily. 11/27/22 Lulú Zhao MD budesonide (Pulmicort) 0.25 MG/2ML nebulizer solution 12/23/21 Historical Provider, budesonide-formoterol (Symbicort) 160-4.5 MCG/ACT inhaler Inhale 2 puffs in the morning and 2 puffsin the evening. Historical Provider, cholecalciferol (Vitamin D-3) 1.25 MG (43796 UT) capsule Take by mouth 1 (one) time per week. 03/23/22 Historical Provider, citalopram (CeleXA) 40 MG tablet Take 40 mg by mouth in the morning. 03/23/22 Historical Provider, ferrous sulfate 325 (65 Fe) MG tablet Take 1 tablet (325 mg) by mouth every other day. Do not startbefore November 28, 2022. 11/28/22 11/28/23 Lulú Zhao MD fluticasone (Flonase) 50 MCG/ACT nasal spray 1 spray. Historical Provider, gabapentin (Neurontin) 300 MG capsule Take 1 capsule (300 mg) by mouth Nightly. 11/02/22 12/02/22 Vinh Collins, Lidocaine 4 % patch Apply 1 patch topically daily. Do not start before November 03, 2022. 11/03/22 Vinh Collins, DO LORazepam (Ativan) 0.5 MG tablet Take 0.5 mg by mouth. Take 1-2 tablets every 8 hours as needed foranxiety Historical Provider, meropenem (Merrem) 1 g injection Infuse 2 g into a venous catheter in the morning and 2 g at noon and 2 g before bedtime. Do all this for 3 days. 11/27/22 11/30/22 Lulú Zhao MD methocarbamol (Robaxin) 750 MG tablet Take 1 tablet (750 mg) by mouth in the morning and 1 tablet (750 mg) at noon and 1 tablet (750 mg) before bedtime. Do all this for 10 days. 11/27/22 12/07/22 Lulú Zhao MD omeprazole (PriLOSEC) [address] capsule Take 1 capsule by mouth in the morning. 07/12/15 Historical Provider, oxyCODONE (Roxicodone) 10 MG immediate release tablet Take 1 tablet (10 mg) by mouth every 4 hours as needed for moderate pain (4-6) for up to 5 days. 11/27/22 12/02/22 Lulú Zhao MD polyethylene glycol, PEG, 3350 (Miralax) 17 g packet Take 17 g by mouth daily for 3 days. Do not start before November 28, 2022. 11/28/22 12/01/22 Lulú Zhao MD senna-docusate sodium (Senokot-S) 8.6-50 MG tablet Take 2 tablets by mouth Nightly. 11/27/22 11/27/23Lulú Zhao MD tiotropium (Spiriva) [address] 18 mcg into inhaler and inhale in the morning.Historical Provider, acetaminophen (Tylenol) 325 MG tablet Take 2 tablets (650 mg) by mouth every 4 hours for 10 days. 11/02/22 11/27/22 Vinh Collins DO cyclobenzaprine (Flexeril) 10 MG tablet Take 10 mg by mouth Nightly. 07/19/15 11/27/22 Historical Provider, Eliquis 5 MG tablet take 2 tablets by mouth TONIGHT, THEN 2 TABLETS TWICE A DAY FOR 5... (REFER TO PRESCRIPTION NOTES). 09/05/22 11/27/22 Historical Provider, MEROPENEM IV Infuse 2 g into a venous catheter in the morning and 2 g at noon and 2 g before bedtime. 11/22/22 11/27/22 Historical Provider, oxyCODONE (Roxicodone) 5 MG immediate release tablet Take 1 tablet (5 mg) by mouth every 4 hours asneeded for moderate pain (4-6) for up to 5 days. 11/02/22 11/27/22 Vinh Collins, DO Current Hospital Medications: Current Facility-Administered Medications: clindamycin in D5W (Cleocin) IVPB 600 mg, 600 mg, IntraVENous, Once, Kevan Parekh MD piperacillin-tazobactam (Zosyn) IVPB 3,375 mg, 3,375 mg, IntraVENous, Once, Rigo Lr MD, Last Rate: 100 mL/hr at 12/03/222021, 3,375 mg at 12/03/222021 vancomycin (Vancocin) 1,500 mg in dextrose 5 % 250 mL IVPB, 1,500 mg, IntraVENous, q12h, Kevan Parekh MD Current Outpatient Medications: acetaminophen (Tylenol) 500 MG tablet, Take 2 tablets (1,000 mg) by mouth in the morning and 2 tablets (1,000 mg) at noon and 2 tablets (1,000 mg) before bedtime. Do all this for 10 days., Disp: 30 tablet, Rfl: 0 albuterol (2.5 MG/3ML) 0.083% nebulizer solution, 2.5 mg., Disp: , Rfl: albuterol 108 (90 Base) MCG/ACT inhaler, INHALE 2 PUFFS FOUR TIMES DAILY NEEDED FOR WHEEZING, Disp: , Rfl: amitriptyline (Elavil) 100 MG tablet, , Disp: , Rfl: apixaban (Eliquis) 5 MG tablet, Take 1 tablet (5 mg) by mouth 2 times daily., Disp: 60 tablet, Rfl:0 budesonide (Pulmicort) 0.25 MG/2ML nebulizer solution, , Disp: , Rfl: budesonide-formoterol (Symbicort) 160-4.5 MCG/ACT inhaler, Inhale 2 puffs in the morning and 2 puffs in the evening., Disp: , Rfl: cholecalciferol (Vitamin D-3) 1.25 MG (04084 UT) capsule, Take by mouth 1 (one) time per week., Disp: , Rfl: citalopram (CeleXA) 40 MG tablet, Take 40 mg by mouth in the morning., Disp: , Rfl: ferrous sulfate 325 (65 Fe) MG tablet, Take 1 tablet (325 mg) by mouth every other day. Do not start before November 28, 2022., Disp: 15 tablet, Rfl: 11 fluticasone (Flonase) 50 MCG/ACT nasal spray, 1 spray., Disp: , Rfl: gabapentin (Neurontin) 300 MG capsule, Take 1 capsule (300 mg) by mouth Nightly., Disp: 30 capsule,Rfl: 0 Lidocaine 4 % patch, Apply 1 patch topically daily. Do not start before November 03, 2022., Disp: , Rfl: LORazepam (Ativan) 0.5 MG tablet, Take 0.5 mg by mouth. Take 1-2 tablets every 8 hours as needed for anxiety, Disp: , Rfl: methocarbamol (Robaxin) 750 MG tablet, Take 1 tablet (750 mg) by mouth in the morning and 1 tablet (750 mg) at noon and 1 tablet (750 mg) before bedtime. Do all this for 10 days., Disp: 30 tablet, Rfl: 0 omeprazole (PriLOSEC) [address] capsule, Take 1 capsule by mouth in the morning., Disp: , Rfl: senna-docusate sodium (Senokot-S) 8.6-50 MG tablet, Take 2 tablets by mouth Nightly., Disp: 60 tablet, Rfl: 11 tiotropium (Spiriva) 18 MCG inhalation capsule, Place 18 mcg into inhaler and inhale in the morning., Disp: , Rfl: Allergies: Amlodipine, Clonazepam, Ketamine, Lisinopril, and Vancomycin Social History: Social History Socioeconomic History Marital status: Spouse name: Not on file Number of children: Not on file Years of education: Not on file Highest education level: Not on file Occupational History Not on file Tobacco Use Smoking status: Former Packs/day: 0.15 Types: Cigarettes Quit date: 10/01/1981 Years since quittin.2 Smokeless tobacco: Never Substance and Sexual Activity Alcohol use: Yes Alcohol/week: 0.0 standard drinks Drug use: No Sexual activity: Not on file Other Topics Concern Not on file Social History Narrative Has been in rehab facility in [place] Lives alone, son close Friends help Social [...] reviewed and are negative PHYSICAL EXAM: BP 136/75 (BP Location: Left arm) Pulse 98 Temp 36.9 C (98.4 F) (Oral) Resp 20 Ht 1.702 m (5' 7) Wt (!) 154 kg (340 lb) SpO2 94% BMI 53.25 kg/m GENERAL APPEARANCE: Awake and oriented x3. No acute distress, except appropriate to injury. MOOD AND AFFECT: Calm appropriate to situation GAIT AND STATION: Patient is in bed and unable to ambulate secondary to known injury. REFLEXES: N/A COORDINATION and BALANCE: Patient is grossly coordinated unable to ambulate secondary to known injury. Lymphadenopathy: none on examination of the affected [...] except noted below -No TTP over clavicle, humerus, elbow, forearm, wrist, hand, or fingers -TTP: Shoulder -Radial pulse palpable -SILT in radial/median/ ulnar nerve distributions -Motor + AIN/PIN/ulnar nerve functions -No Lymphedema -Skin intact except where noted below -Painless pROM at elbow/wrist Pain w/ aROM of shoulder. TTP in the anterior and superior aspect of the shoulder. Able to forward flex shoulder to 120 degs w/ pain. No erythema, effusion, or warmth surrounding the shoulder joint. No short arc motion of shoulder. Right Lower Extremity: -No obvious pain or deformity to inspection with normal joint range of motion, stability, and muscle strength except noted below -No TTP over pelvis, hip, thigh, knee, tibia -TTP: Nontender throughout extremity -Pulse: Stump well-perfused -SILT in the superficial peroneal, deep peroneal, tibial, sural, saphenous nerve distributions -Motor function of quad -No Lymphedema -Skin intact except where noted below -Painless pROM at hip/knee Prior BKA incision well-healed with no concerns of infection. No erythema, swelling, purulent discharge. Left Lower Extremity: -No obvious pain or deformity to inspection with normal joint range of motion, stability, and muscle strength except noted below -No TTP over pelvis, hip -TTP: thigh -Pulse: Stump well-perfused -SILT to the distal portion of the stump -Motor function of hip flexors -Lymphedema -Skin intact except where noted below -Painless pROM at hip Erythema surrounding the entire prior AKA incision, Purulent, olivas discharge noted on the dressings.Sensation intact to distal portion of stump. Overall, stump appears more swollen compared to the contralateral thigh. Exquisitely TTP surrounding the surgical site. Compartments soft and compressible. No short arc pain w/ hip ROM. No palpable crepitus or subcutaneous emphysema. Labs: CBC: Lab Results Component Value Date WBC 4.6 12/03/2022 RBC 3.57 (L) 12/03/2022 BMP: Lab Results Component Value Date GLUCOSE 108 (H) 12/03/2022 CO2 29 12/03/2022 BUN 10 12/03/2022 CREATININE 0.59 12/03/2022 CALCIUM 8.7 12/03/2022 PT/INR: No results found for: PT, INR, APTT Type and Screen: No results found for: RH, LABANTI CRP: Lab Results Component Value Date CRP 23.2 (H) 12/03/2022 ESR: Lab Results Component Value Date SEDRATE 62 (H) 12/03/2022 HgBA1c: No components found for: LABA1C The above labs were reviewed by me. Radiology: The below images were independently reviewed and interpreted with pertinent findings noted below. XR: L hip, femur- Erosive changes at distal aspect of remaining femur with concerns for osteomyelitis. Soft tissue edema throughout distal aspect of stump. Degenerative changes in hip joint. No acute signs of fracture, deformities, or dislocations. L shoulder- Degenerative arthritis of the left shoulder. No evidence of osteomyelitis, cortical erosion. No fractures or dislocations. Radiology reports reviewed. ASSESSMENT: 62 y.o. female s/p recent AKA w/ SSI and overlying cellulitis PLAN: -D/w Dr. Vega -Plan for OR likely on Sunday for repeat I&D and wound vac placement of L AKA SSI. LA is 1.2, ESR is 62, CRP is 23.2, WBC is 4.6, glucose is 108. No acute concerning signs of necrotizing fascitis at this time. Will follow closely and begin Abx -Started Vancomycin, Zosyn and Clindamycin -NPO@MN on 12/05 -Infectious disease consult for Abx management -Clearance/optimization pending -Consented -Add pending -Labs pending -Bcx pending -Ortho will rpt a skin check at 2200 on 12/03 -NWB -Admit to medicine -Pain control and medical management per medicine -Please comment on clearance in case of OR, page ortho pgr [phone] with clearance status Elise Warren MD PGY-1 Orthopaedic Surgery 12/03/2022 8:50 PM Senior Resident Attestation: Pt seen and evaluated. I agree with previous assessment and plan. I performed an independent exam and agree with previous exam with any changes noted. 62 y.o. female withLLE AKA SSI s/p previous I+D with closure on 11/21/22. Patient had progressive increase in erythema,swelling and drainage from her LLE incision site starting yesterday prior to arrival. She has TTP about the surgical site, but denies any systemic symptoms of fever, respiratory distress, chills, night sweats. Based on laboratory values, LRINEC score currently 2. Will plan to monitor overnight withskin checks. Plan for next skin check at 2200 for repeat evaluation. I saw and evaluated the patient, participating in the jose portions of the service. I reviewed the resident s note. I agree with the resident s findings and plan. MD Kevan Rivera MD PGY-3 Orthopaedic Surgery 10:21 PM 12/03/2022 * Kristi Cross RPh - 12/03/2022 7:52 PM EST Images from the original note were not included. Pharmacy Managed Vancomycin Dosing Service Consult Note Consult Date: 12/03/22 Patient Name: Siobhan Haas Allergies: Amlodipine, Clonazepam, Ketamine, Lisinopril, and Vancomycin Age: 62 y.o. Sex: female Ht: TBW: Weight: (!) 154 kg (340 lb) BMI: Body mass index is 53.24 kg/m . DW: 154 kg Lab Results Component Value Date CREATININE 0.59 12/03/2022 CREATININE 0.62 11/27/2022 BUN 10 12/03/2022 BUN 16 11/27/2022 WBC 4.6 12/03/2022 WBC 6.7 11/27/2022 Calculated CrCl: > 80 mL/min Consulted By: Dr. Kevan Parekh Random: with AM labs on 12/04/22 Infectious Diagnosis: SSTI (AUC Goal 400-600 mg/L*hr) Antimicrobials: Clindamycin x1 dose Pip/tazo x1 dose Vancomycin 12/03/22 Assessment/Plan: Start Vancomycin 1500 mg Q 12 hours based on patient age, weight, renal function, and infectious diagnosis (9.7 mg/kg), predicted AUC 537 mg/L*hr, 9% chance of toxicity Will assess random level on 12/04/22 and adjust as appropriate. Trend serum creatinine. Orders placed. Thank you for this consult. Please page/call with questions. Date: 12/03/22 Time: 7:52 PM Kristi Cross RPh (available on Haiku) documented in this [facility]03-13-2023 Note* Care Coordination - Isabela Cummins RN - 12/11/2022 2:59 PM EDT Met with pt at bedside to discuss dc planning. Discussed that [facility] accept and [facility] is still reviewing. Pt states [facility] is her foc. Updated facility via careport. Call placed to dania Bennett to update her on discharge plan. Electronically signed by Isabela Cummins RN on12/11/2022 at 3:08 PM [place] [id number] Note* Care Coordination - Isabela Cummins RN - 12/11/2022 2:59 PM EDT Met with pt at bedside to discuss dc planning. Discussed that [facility] accept and [facility] is still reviewing. Pt states [facility] is her foc. Updated facility via careport. Call placed to daughter Luz Marina to update her on discharge plan. Electronically signed by Isabela Cummins RN on12/11/2022 at 3:08 PM [id number] Note* Care Coordination - Isabela Cummins RN - 12/11/2022 7:54 AM EDT Therapy called, requested updated PT notes for snf placement. [id number] Note* Care Coordination - Isabela Cummins RN - 12/11/2022 7:54 AM EDT Therapy called, requested updated PT notes for sn[facility] placement. [id number]* Care Coordination - Isabela Cummins RN - 12/08/2022 3:58 PM EST Met with pt at bedside per pt request. Pt extremely tearful, frustrated that there are no acceptinghome care agencies. Pt called her insurance company and provided TCC with home care agencies which contracts with her insurance. Called supervisor home restoration service, requested those additional referrals be placed. Discussed with pt that we are awaiting responses from facilities and home care agencies as well as awaiting finalized IV antibiotic course so pt will not dc over the weekend. Pt anxious and tearful but verbalizes understanding. TCC will follow up on Sunday with pt. [id number] Note* Care Coordination - Isabela Cummins RN - 12/08/2022 3:58 PM EST Met with pt at bedside per pt request. Pt extremely tearful, frustrated that there are no acceptinghome care agencies. Pt called her insurance company and provided TCC with home care agencies which contracts with her insurance. Called supervisor home restoration service, requested those additional referrals be placed. Discussed with pt that we are awaiting responses from facilities and home care agencies as well as awaiting finalized IV antibiotic course so pt will not dc over the weekend. Pt anxious and tearful but verbalizes understanding. TCC will follow up on Sunday with pt. [place] [id number] Note* Care Coordination - Kierra Lobato - 12/08/2022 2:36 PM EST [facility]Fs per TCC request: [facility] Await review and response regarding ability to accept. TCC notified. [id number] Note* Care Coordination - Kierra Lobato - 12/08/2022 2:36 PM EST Referral sent via [facility] to the following SNFs per TCC request: [facility] Await review and response regarding ability to accept. TCC notified. [id number] Note* Care Coordination - Isabela Cummins RN - 12/08/2022 1:09 PM EST Met with pt at bedside to discuss discharge planning. Reviewed that 14 home care agencies cannot accept so pt will likely need to go to snf for needed care. Pt agreeable to referrals to [facility], [facility], and [facility]. Referrals tasked to be placed in careport. [facility] [id number] Note* Care Coordination - Isabela Cummins RN - 12/08/2022 1:09 PM EST Met with pt at bedside to discuss discharge planning. Reviewed that 14 home care agencies cannot accept so pt will likely need to go to snf for needed care. Pt agreeable to referrals to [facility], [facility], and [facility]. Referrals tasked to be placed in careport. [facility] [id number] Note* Care Coordination - Isabela Cummins RN - 12/07/2022 4:16 PM EST Met with pt at bedside, updated her that her chosen facilities cannot accept and we have not yet found accepting home care agency. Pt provided with snf list to review, will return tomorrow for additional choices. [facility] [id number] Note* Care Coordination - Isabela Cummins RN - 12/07/2022 4:16 PM EST Met with pt at bedside, updated her that her chosen facilities cannot accept and we have not yet found accepting home care agency. Pt provided with snf list to review, will return tomorrow for additional choices. [facility] HospitalYvjszm98-74-0055 Procedure note* Shoaib Rolon APRN - [place] - 12/07/2022 3:34 PM ESTAssociated Order(s): INSERT PICC LINE Images from the original note were not included. PICC Procedure Note Siobhan Haas : 1960(62 y.o.) History/labs/allergies reviewed. Indication: LTABX, cellulitis/OM of L AKA stump site Consent was obtained after explaining the procedure, [...] Ultrasound guidance used. Site prior to insertion: gold Lot # [id number] Catheter type: 5 [place] Double Lumen Location: Right basilic vein Trimmed at 48 cm ; inserted at 48 Procedure: The site was prepped with chlorprep [...] X-Ray: Ordered. Placed by Shoaib Rolon APRN [employer] Work Phone: 1(687) 112-338003-09-2023 Procedure note* Irene Aldridge MD - 12/07/2022 3:34 PM EST Central Line Insertion Checklist - PICC per Central Access Team 12/07/22 at 3:34 PM Procedure: [x] Central Venous Catheter Insertion [...] follow escalation policy. Proceduralist: Shoaib Rolon APRN [employer] Work Phone: 1(472) 535-557303-09-2023 Procedure note* Shoaib Rolon APRN - DATA MINING ANALYST - 12/07/2022 3:34 PM ESTAssociated Order(s): INSERT PICC LINE Images from the original note were not included. PICC Procedure Note Siobhan Haas : 1960(62 y.o.) History/labs/allergies reviewed. Indication: LTABX, cellulitis/OM of L AKA stump site Consent was obtained after explaining the procedure, [...] Site prior to insertion: ecchymoses Lot # [id number] Catheter type: 5 [place] Double Lumen Location: Right basilic vein Trimmed at 48 cm ; inserted at 48 Procedure: The site was prepped with chlorprep [...] Ordered. Placed by Shoaib Rolon APRN * Irene Aldridge MD - 12/07/2022 3:34 PM EST Central Line Insertion Checklist - PICC per Central Access Team 12/07/22 at 3:34 PM Procedure: [x] Central Venous Catheter Insertion [...] safety discussion, follow escalation policy. Proceduralist: Shoaib Rolon, SUPERVISOR HAND SILVERING documented in this [facility]03-09-2023 Note* Care Coordination - Isabela Cummins RN - 12/07/2022 2:22 PM EST [facility] cannot accept pt, current waiting list at that facility greater than 2 weeks. [facility] [id number] Note* Care Coordination - Isabela Cummins RN - 12/07/2022 2:22 PM EST [facility] cannot accept pt, current waiting list at that facility greater than 2 weeks. [facility] [id number] Note* Care Coordination - Isabela Cummins RN - 12/07/2022 1:57 PM EST Met with pt at bedside to discuss discharge planning. Pt states she would like to go home with homecare if possible. Pt states that her son lives with her. Discussed that pt will likely need IV antibiotics, management of wound vac, and wound care. Last admission pt unable to get home care due to home location and insurance coverage. Discussed with pt that home care was not guaranteed but that wewill place referrals to try and find a covering agency. Discussed with supervisor home restoration service. Discussedwith pt that referrals placed to [facility] and [facility] as pt previously requested. Pt states she will only go to a snf close to home, is not interested in seeing if she is a candidate for [facility]. Upon returning to office TCC checked care port[facility], [facility] not on care port. Call placed, no answered, vm left requesting return call. [facility] HospitalUofreh20-18-1500 Note* Care Coordination - Isabela Cummins RN - 12/07/2022 1:57 PM EST Met with pt at bedside to discuss discharge planning. Pt states she would like to go home with homecare if possible. Pt states that her son lives with her. Discussed that pt will likely need IV antibiotics, management of wound vac, and wound care. Last admission pt unable to get home care due to home location and insurance coverage. Discussed with pt that home care was not guaranteed but that wewill place referrals to try and find a covering agency. Discussed with supervisor home restoration service. Discussedwith pt that referrals placed to [facility] and [facility] as pt previously requested. Pt states she will only go to a snf close to home, is not interested in seeing if she is a candidate for [facility]. Upon returning to office TCC checked care port. [facility] cannot accept, [facility] not on care port. Call placed, no answered, vm left requesting return call. [facility]03-09-2023 Note* Home Care - Leandra Fuller RN - 12/07/2022 12:57 PM EST Referral sent to [facility] to check cost of home infusion. ' [facility] [id number] Note* Home Care - Leandra Fuller RN - 12/07/2022 12:57 PM EST Referral sent to [facility] to check cost of home infusion. ' [facility] HospitalAdbeix04-47-5794 Note* Care Coordination - Kierra Lobato - 12/07/2022 8:52 AM EST Referral sent to the following SNFS per TCC request: [facility] Await review and response regarding ability to accept. TCC notified. [place] [id number] Note* Care Coordination - Kierra Lobato - 12/07/2022 8:52 AM EST Referral sent to the following SNFS per TCC request: [facility] Await review and response regarding ability to accept. TCC notified. [place] [id number] Note* Care Coordination - Isabela Cummins RN - 12/07/2022 7:51 AM EST Referrals to [facility] and [facility] tasked to be sent per pt previous request. Will discuss dc plans with pt today. [place] [id number] Note* Care Coordination - Isabela Cummins RN - 12/07/2022 7:51 AM EST Referrals to [facility] and [facility] tasked to be sent per pt previous request. Will discuss dc plans with pt today. [facility] [id number] Note* Perioperative Nursing Note - Laurie Payne RN - 12/05/2022 7:11 PM EST Pt to floor with transport, nad, resp non labored, alert and oriented [id number] Note* Perioperative Nursing Note - Laurie Payne RN - 12/05/2022 7:11 PM EST Pt to floor with transport, nad, resp non labored, alert and oriented [id number] Note* Perioperative Nursing Note - Laurie Payne RN - 12/05/2022 6:46 PM EST Report called to floor, transport initiated [id number] Note* Perioperative Nursing Note - Laurie Payne RN - 12/05/2022 6:46 PM EST Report called to floor, transport initiated [id number] Note* Op Note - Rusty Mercado MD - 12/05/2022 5:03 PM EST Pre-operative Diagnosis: Left thigh/AKA stump abscess Post-operative Diagnosis: Same Procedure: #1 Incision and drainage abscess Left thigh/AKA (Wound dimensions: Length medial to lateral: 12 cm, Width anterior to posterior: 3 cm, Depth: 4 cm #2 Application wound VAC, wound <50 sq cm left thigh/AKA Components used: VAC Anesthesia: general Surgeon: Jess Assistants: Adolfo Aceves Estimated Blood Loss: 50ml Complications: None Specimens: Culture of the left AKA was obtained Medications: Siobhan was on scheduled antibiotics pre-operatively and no additional antibiotics were given Operative findings: The left above-knee amputation wound along the lateral aspect of the amputationsite did not communicate with the underlying femur. The more medial portion of the amputation site appears to be healed with no tunneling or tracking being noted medially. A large amount of calcium sulfate antibiotic cement was present within the wound site which was removed. After incision and drainage was complete a VAC dressing was placed. The plan will be for healing by secondary intent assuming that the wound is responding to the VAC dressing changes. History of present illness: Siobhan is a 62 y.o. female history significant for a left above-knee amputation that became infected underwent multiple operative incision and drainages. At her final incision and drainage the amputation was closed over calcium sulfate antibiotic cement beads. Siobhan presented back to the hospital with increased redness swelling and pain with drainage. Despite the risks of surgery Siobhan consented to proceed. Operative report: I met with [...] of pain or dysfunction, wound healing complications, and late or chronic pain as a result of the surgical intervention. In addition potentially life threatening complications that can occur at the time of surgery and after surgery were discussed including but not limited to deep vein thrombosis, pulmonary embolism, myocardial infarction, stroke and . I initialed her Left lower extremity and signed her consent form. Siobhan was then brought to the operating room and placed in the supine position on the Operating Room table. Care was taken to identify and pad all bony prominences. A general anesthetic was then given by the anesthesia staff and an endotracheal tube was placed by the anesthesia staff. At all times during the operative procedure the patient's head neck and airwaywere protected by the anesthesia staff. A tourniquet was not utilized for the case. Total tourniquet time was less than Not applicable . The Left lower extremity was then prepped and draped in the usual orthopedic sterile fashion. A surgical timeout was then performed with the patient's identification, the procedure to be performed being reviewed with the consent form, verification that the patient had received preoperative antibiotics, and verification of the correct surgical side. Everyone in the operating room stopped what they were doing in order to participate in the timeout. This timeout was performed by myself, the circulating room nurse and the anesthesia staff. The patient's ASA was verified by the nurse machine printer and the anesthesia staff. Fire risk was assessed. The lateral aspect of the above-knee amputation site that was draining was incised and drained. No gross purulence was found. Soft tissue was found covering the distal femur. No tunneling into the medial half of the imitation site was found. No direct communication with the underlying femoral shaftwas found. Debridement of the large amount of calcium sulfate antibiotic cement was performed. Any nonviable appearing skin, subcutaneous tissue or muscle was excised. The entire wound was then thoroughly irrigated with copious amounts of sterile saline and then withXperience surgical irrigant. A culture was then obtained from the wound site. At this point it was decided to place a VAC dressing within the wound. Black VAC sponge was utilized. The skin surrounding the wound was cleaned and dried and then [place] sponges were used to further prepare the skin and then the skin was covered with plastic dressing.. The piece of sponge that had been cut for the wound was placed within the wound. Plastic dressing was then used to cover the sponge/wound. A [place] of plastic drape the size of a quarter was cut out exposing the underlying sponge material for tract pad placement. A tract pad was then placed over the exposed sponge and the tubing from the tract pad was attached to the VAC machine. The machine was started and a good seal withno leaks was present. Siobhan was then awakened from her anesthetic, transferred to her hospital bed and taken to the recovery room in stable medical condition. Post-operative plan: Additional Surgical Intervention: No further plans for operative intervention at this time Weight Bearing Instructions: Siobhan will be nonweight bearing on the left lower extremity. DVT Prophylaxis: Can start/restart chemoprophylaxis from my standpoint Antibiotics: Antibiotic managment per Infectious Disease, will need chronic suppressive antibiotic treatment as surgical cure of infection is unlikely Consults: Wound care for VAC dressing changes every 48 hours left above-knee amputation, first VAC dressing change 12/06/2022 and Consult Infectious Disease for antibiotic management Dressings: VAC dressing change by nursing staff/wound care Q48 hours, first change should be 12/06/2022 Any questions please page Ortho pager (resident manager acquisition) or call my office at [phone] [facility] [id number] Note* Brief Op Note - Maximino Aceves JD, MD - 12/05/2022 5:03 PM EST Date: 12/05/2022 Location: [facility] OR Name: Siobhan Haas, : 1960, Diagnosis Pre-op Diagnosis * Surgical wound infection [T81.49XA] Post-op Diagnosis * Surgical wound infection [T81.49XA] Procedures REVISION ABOVE KNEE AMPUTAION LEFT 73620 - MO AMP THIGH THRU FEMUR SEC CLOSURE/SCAR REVISION Surgeons * Rusty Mercado - Primary Procedure Summary Anesthesia: * No anesthesia type entered * ASA: III Estimated Blood Loss: Minimal Drains: Female External Urinary Catheter (Active) Wall Suction (mmHg) 40 12/04/22 0348 External Catheter Status In place 12/04/22 0348 Securement Method Other (Comment) 12/04/22 0348 [facility] Soap and water 12/04/22 0100 Staff: Fleet Technician: Dorina Arauz RN Physician Clothes Drier Assembler: CARMELA Ramos Relief Scrub: Narciso Rosado MA Findings: see detailed op report Complications: None; patient tolerated the procedure well. Specimens Collected: Order Name Source Comment Collection Info Order Time AEROBIC AND ANAEROBIC CULTURE WITH STAIN Knee, Left Pre-op diagnosis: Surgical wound infection [T81.49XA] Collected By: Rusty Mercado MD 12/05/2022 5:49 PM Blood Products: None Prophylactic Antibiotics: Pre-operative antibiotics were not given because the patient is on continuous antibiotics for documented preoperative infection. Plan: Plan for definitive vac mgmt of wound. No plans to RTOR Wound care c/s for vac changes MWF starting tomorrow NWB LLE Up with assistance PTOT Elevate LLE Antibiotics per ID Recommend long-term suppressive abx, appreciate recs Monitor Hgb Dressing: wvac, continue Neurovascular and skin checks Ok to resume DVT ppx Pain, medical management per primary Ortho recs: ok for dc after vac change on Sunday if long-term suppressive abx setup and pending vacoutput [facility]03-07-20[facility] Note* Op Note - Rusty Mercado MD - 12/05/2022 5:03 PM EST Pre-operative Diagnosis: Left thigh/AKA stump abscess Post-operative Diagnosis: Same Procedure: #1 Incision and drainage abscess Left thigh/AKA (Wound dimensions: Length medial to lateral: 12 cm, Width anterior to posterior: 3 cm, Depth: 4 cm #2 Application wound VAC, wound <50 sq cm left thigh/AKA Components used: VAC Anesthesia: general Surgeon: Jess Assistants: Adolfo Aceves Estimated Blood Loss: 50ml Complications: None Specimens: Culture of the left AKA was obtained Medications: Siobhan was on scheduled antibiotics pre-operatively and no additional antibiotics were given Operative findings: The left above-knee amputation wound along the lateral aspect of the amputationsite did not communicate with the underlying femur. The more medial portion of the amputation site appears to be healed with no tunneling or tracking being noted medially. A large amount of calcium sulfate antibiotic cement was present within the wound site which was removed. After incision and drainage was complete a VAC dressing was placed. The plan will be for healing by secondary intent assuming that the wound is responding to the VAC dressing changes. History of present illness: Siobhan is a 62 y.o. female history significant for a left above-knee amputation that became infected underwent multiple operative incision and drainages. At her final incision and drainage the amputation was closed over calcium sulfate antibiotic cement beads. Siobhan presented back to the hospital with increased redness swelling and pain with drainage. Despite the risks of surgery Siobhan consented to proceed. Operative report: I met with [...] of pain or dysfunction, wound healing complications, and late or chronic pain as a result of the surgical intervention. In addition potentially life threatening complications that can occur at the time of surgery and after surgery were discussed including but not limited to deep vein thrombosis, pulmonary embolism, myocardial infarction, stroke and . I initialed her Left lower extremity and signed her consent form. Siobhan was then brought to the operating room and placed in the supine position on the Operating Room table. Care was taken to identify and pad all bony prominences. A general anesthetic was then given by the anesthesia staff and an endotracheal tube was placed by the anesthesia staff. At all times during the operative procedure the patient's head neck and airwaywere protected by the anesthesia staff. A tourniquet was not utilized for the case. Total tourniquet time was less than Not applicable . The Left lower extremity was then prepped and draped in the usual orthopedic sterile fashion. A surgical timeout was then performed with the patient's identification, the procedure to be performed being reviewed with the consent form, verification that the patient had received preoperative antibiotics, and verification of the correct surgical side. Everyone in the operating room stopped what they were doing in order to participate in the timeout. This timeout was performed by myself, the circulating room nurse and the anesthesia staff. The patient's ASA was verified by the nurse machine printer and the anesthesia staff. Fire risk was assessed. The lateral aspect of the above-knee amputation site that was draining was incised and drained. No gross purulence was found. Soft tissue was found covering the distal femur. No tunneling into the medial half of the imitation site was found. No direct communication with the underlying femoral shaftwas found. Debridement of the large amount of calcium sulfate antibiotic cement was performed. Any nonviable appearing skin, subcutaneous tissue or muscle was excised. The entire wound was then thoroughly irrigated with copious amounts of sterile saline and then withXperience surgical irrigant. A culture was then obtained from the wound site. At this point it was decided to place a VAC dressing within the wound. Black VAC sponge was utilized. The skin surrounding the wound was cleaned and dried and then [place] sponges were used to further prepare the skin and then the skin was covered with plastic dressing.. The piece of sponge that had been cut for the wound was placed within the wound. Plastic dressing was then used to cover the sponge/wound. A [place] of plastic drape the size of a quarter was cut out exposing the underlying sponge material for tract pad placement. A tract pad was then placed over the exposed sponge and the tubing from the tract pad was attached to the VAC machine. The machine was started and a good seal withno leaks was present. Siobhan was then awakened from her anesthetic, transferred to her hospital bed and taken to the recovery room in stable medical condition. Post-operative plan: Additional Surgical Intervention: No further plans for operative intervention at this time Weight Bearing Instructions: Siobhan will be nonweight bearing on the left lower extremity. DVT Prophylaxis: Can start/restart chemoprophylaxis from my standpoint Antibiotics: Antibiotic managment per Infectious Disease, will need chronic suppressive antibiotic treatment as surgical cure of infection is unlikely Consults: Wound care for VAC dressing changes every 48 hours left above-knee amputation, first VAC dressing change 12/06/2022 and Consult Infectious Disease for antibiotic management Dressings: VAC dressing change by nursing staff/wound care Q48 hours, first change should be 12/06/2022 Any questions please page Ortho pager (resident manager acquisition) or call my office at [phone] [id number] Note* Brief Op Note - Maximino Aceves JD, MD - 12/05/2022 5:03 PM EST Date: 12/05/2022 Location: [facility] OR Name: Siobhan Haas, : 1960, Diagnosis Pre-op Diagnosis * Surgical wound infection [T81.49XA] Post-op Diagnosis * Surgical wound infection [T81.49XA] Procedures REVISION ABOVE KNEE AMPUTAION LEFT 32866 - MO AMP THIGH THRU FEMUR SEC CLOSURE/SCAR REVISION Surgeons * Rutsy Mercado - Primary Procedure Summary Anesthesia: * No anesthesia type entered * ASA: III Estimated Blood Loss: Minimal Drains: Female External Urinary Catheter (Active) Wall Suction (mmHg) 40 12/04/22 0348 External Catheter Status In place 12/04/22 0348 Securement Method Other (Comment) 12/04/22 0348 Alex[facility]-Care Soap and water 12/04/22 0100 Staff: Fleet Technician: Dorina Arauz RN Physician Clothes Drier Assembler: CARMELA Ramos Relief Scrub: Narciso Rosado MA Findings: see detailed op report Complications: None; patient tolerated the procedure well. Specimens Collected: Order Name Source Comment Collection Info Order Time AEROBIC AND ANAEROBIC CULTURE WITH STAIN Knee, Left Pre-op diagnosis: Surgical wound infection [T81.49XA] Collected By: Rusty Mercado MD 12/05/2022 5:49 PM Blood Products: None Prophylactic Antibiotics: Pre-operative antibiotics were not given because the patient is on continuous antibiotics for documented preoperative infection. Plan: Plan for definitive vac mgmt of wound. No plans to RTOR Wound care c/s for vac changes MWF starting tomorrow NWB LLE Up with assistance PTOT Elevate LLE Antibiotics per ID Recommend long-term suppressive abx, appreciate recs Monitor Hgb Dressing: wvac, continue Neurovascular and skin checks Ok to resume DVT ppx Pain, medical management per primary Ortho recs: ok for dc after vac change on Sunday if long-term suppressive abx setup and pending vacoutput [facility]03[facility] Hospital Discharge instructions* Discharge Instructions* Maximino Aceves JD, MD - 12/05/2022 4:22 PM EST General Orthopedic Discharge Instructions The following instructions have been prepared to help you when you leave the hospital. These guidelines are for the post-surgery period. Activity: Ease into normal activity as tolerated. Weightbearing status: do not bear weight on left lower extremity. Medications: see medication instructions. Please be sure to read and understand the information provided by your pharmacy. Ask your Pharmacist if any questions. Wound Care and Hygiene: -Wash hands before touching dressings -Continue to the wound vac until your wound heals, do not remove. Please call the office if the wound vac stops working. Call Your Doctor for: -Excessive bleeding/swelling of incision -Fever with temperature above 101 F Anesthesia Precautions: -Do Not operate any vehicle (automobile, bicycle, motorcycle) or power tools for 24 hours -Do Not drink alcoholic beverages for 24 hours -As precaution to prevent post-operative nausea and vomiting, start your diet with liquids, then progress to light foods. If tolerated, resume normal diet. Additional Instructions: Follow up with Dr. Mercado in 2 weeks. Call to schedule your appointment as soon as possible. * Discharge Instr - Activity* Art Shearer MD - 12/11/2022 12:06 PM EDT Up with assistance as tolerated * Discharge Instr - Diet* Art Shearer MD - 12/11/2022 12:06 PM EDT Regular diet * Discharge Instr - JENNIFER* Kary Virgen RN - 12/11/2022 12:11 PM EDT Continuity of Care Form Patient Name: Siobhan Haas : 1960 Admit date: 12/03/2022 Discharge date: 12/12/2022 Code Status Order: Full Code Advance Directives: N Admitting Physician: Macrina Schrader PCP: Oj Maddox Discharging Nurse: Kary Broderick Hospital Unit/Room#: W7-726/W7-726 A Discharging Unit Emergency Contact: Extended Emergency Contact Information Primary Emergency Contact: Luz Marina Mueller Relation: Child Secondary Emergency Contact: PurcellDominga Relation: Sister Past Surgical History: Past Surgical [...] Right 02/11/2019 FOOT SURGERY Right 2019 [place] FOOT SURGERY Right 04/08/2019 I&D right foot with antibiotic spacer FOOT SURGERY Right 04/24/2019 I&D;, external fixator FOOT SURGERY Left 08/04/2021 peroneus longus tenolysis - Dr Gamino HYSTERECTOMY 1997 INCISION AND DRAINAGE OF WOUND Left 11/21/2022 LLE INCONTINENCE SURGERY 11/15/2015 synthetic mid urethral sling,cystoscopy [...] Right 05/06/2019 Right Below Knee Amputation (CPT 68758), #2 Excisional debridement right iliac crest (wound 7 cm length, 3 cm width, 7 cm depth) TONSILLECTOMY (HISTORICAL) TOTAL KNEE ARTHROPLASTY Left 2012 ARTHROSCOPY FIRST AND KNEE REPLACED WISDOM TOOTH EXTRACTION WOUND DEBRIDEMENT Left 10/28/2021 irrigation and debridment LLE Immunization History: Immunization History Administered Date(s) Administered Moderna SARS-CoV-2 Vaccination 01/27/2021, 02/24/2021 Active Problems: Medical Problems Problem List * (Principal) Cellulitis of left lower extremity Left leg cellulitis Necrotizing soft tissue infection Lymphedema Stump pain (HCC) Abrasion of lower leg with infection, initial encounter PE (pulmonary thromboembolism) (HCC) Surgical wound infection HLD (hyperlipidemia) (Chronic) Superficial venous thrombosis of left upper extremity Difficult intubation History of right below knee amputation (HCC) (Chronic) Overview Signed 07/16/2022 6:33 AM by Interface, Incoming Problems- [facility] Conversion Performed [place] [address] Mercado. BKA stump complication (HCC) Amputation stump complicated [...] Hemorrhage of rectum and anus HTN (hypertension) (Chronic) Overview Signed 07/16/2022 6:33 AM by Interface, Incoming Problems- [facility] Conversion Overview: Resume HCTZ and minal i Resume HCTZ and minal i Pansystolic murmur (Chronic) Overview Signed 07/16/2022 6:33 AM by Interface, Incoming Problems- [facility] Conversion Comment on above: Holosystolic murmur, /6 Chest wall pain Asthma Asthma with acute exacerbation Overview Signed 07/16/2022 6:33 AM by Interface, Incoming Problems- [facility] Conversion Overview: IV solumedrol IV levofloxacin Duo neb Q2/4 hrs Oxygen via [place] Pulmonolgy consult Resumed advair /nasal steroids/singulaire Pain from implanted hardware Obstructive sleep apnea syndrome (Chronic) Chronic obstructive lung disease (HCC) Morbid obesity [...] body mass index (BMI) Gastroesophageal reflux disease (Chronic) Hiatal hernia Callosity MCFP (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 antibiotics Dehiscence of closure [...] infections Nurse Assessment: Last Vital Signs: BP 133/84 (BP Location: Left arm, Patient Position: Lying) Pulse 82 Temp 36 C(96.8 F) (Temporal) Resp 20 Ht 5' 7 (1.702 m) Wt (!) 339 lb 3.2 oz (154 kg) SpO2 94% BMI53.13 kg/m Last documented pain score (0-10 scale): Last Weight: Wt Readings from Last 1 Encounters: 12/04/22 (!) 339 lb 3.2 oz (154 kg) Mental Status: JENNIFER Patient Mental Status: oriented, alert, coherent, logical, thought processes intact, and able to concentrate and follow conversation IV Access: JENNIFER IV Access: PICC - site: upper arm right, condition patent and no redness, insertion date: 12/07/2022 right basilic length 48 Nursing Mobility/ADLs: Walking Total assistance bilateral amputee Transfer Total assistance Bathing Total assistance Dressing Total assistance Toileting Total assistance Feeding Independent Leave Specialist Minimal assistance Med Delivery yes Wound Care Documentation and Therapy: Wound/Incision 12/05/22 Incision Amputation site - above knee Anterior;Left (Active) Site Assessment Clean 12/10/22 2200 Odor None 12/05/22 1845 Drainage Amount None 12/05/22 184 Dressing Status Clean, dry & intact 12/06/22 0800 Number of days: 5 Elimination: Continence: Bowel: yes sometimes Bladder: no sometimes Urinary Catheter: None Colostomy/Ileostomy/Ileal Conduit: None Date of Last BM: 12/12/2022 Intake/Output Summary (Last 24 hours) at 12/11/2022 1206 Last data filed at 12/10/2022 1637 Gross per 24 hour Intake -- Output 1100 ml Net -1100 ml I/O last 3 completed shifts: In: - (0 mL/kg) Out: 3200 (20.8 mL/kg) [Urine:3200 (0.6 mL/kg/hr)] Weight: 153.9 kg Safety Concerns: at risk for falls Impairments/Disabilities: amputation - R BKA, L AKA Nutrition Therapy: Current Nutrition Therapy: Oral diet: general Routes of Feeding: oral Liquids: thin liquids Daily Fluid Restriction: no Last Modified Barium Swallow with Video (Video Swallowing Test): not done Treatments at the Time of Hospital Discharge: Respiratory Treatments: none at this time Oxygen Therapy: is not on home oxygen therapy. Ventilator: No ventilator support Rehab Therapies: physical therapy and occupational therapy Weight Bearing Status/Restrictions: non-weight bearing Other Medical Equipment (for information only, NOT a DME order): bedside commode and wheelchair Other Treatments: unknown at this time Patient's personal belongings (please select all that are sent with patient): cell phone, knitting bag, I pad , coloring book and colored pencils RN SIGNATURE: MANAGEMENT/SOCIAL WORK SECTION Inpatient Status Date: 12/03/22 Readmission Risk Assessment Score: Predictive Model Details Model IP RISK OF UNPLANNED READMISSION [[id number]] is not released. No score information can be retrieved Discharging to Facility/ Agency Name: [facility] Address: [address], [place] [address] Fax: Dialysis Facility (if applicable) Name: Address: Dialysis Schedule: Phone: Fax: Preparation Plant Repairer/Truss Maker signature: ICIAN SECTION Prognosis: good Condition at Discharge: stable Rehab Potential (if transferring to Rehab): fair Recommended Labs or Other Treatments After Discharge: CBC, BMP panel in 3 days Nocturnal BiPAP for FAY Physician Certification: I certify the above information and transfer of Siobhan Haas is necessary for the continuing treatment of the diagnosis listed and that she requires acute rehab for lessthan 30 days. Update Admission H&P: No change in H&P PHYSICIAN SIGNATURE: documented in this [facility]03-06-2023 Plan of care note* Care Plan - Macrina Schrader - 12/04/2022 10:57 PM EST Pt developed severe itching after receiving the cefepime. Cefepime was discontinued and IV benadrylwas ordered. [id number] Consult note* Cristian Maxwell DO - 12/04/2022 3:46 PM ESTAssociated Order(s): IP CONSULT TO INFECTIOUS DISEASES Images from the original note were not included. [facility] - Infectious Diseases Attending Consult Note Reason for Consult: Osteomyelitits of the left lower extremity History of Present Illness: Ms. Haas is a 62 y/o F w/ PMH of LLE NF s/p debridement and L AKA, R BKA, COPD/asthma on home O2, prior b/l PE 08/2022 (AC on apixaban), FAY on BIPAP, GERD, HTN, OA, depression, fibromyalgia. She presented to [facility] ED 12/03 w/ severe pain and erythema of the LLE stump. Pt recently underwent L AKA 10/31 w/ multiple subsequent I&Ds, w/ the most recent on 11/21/22. She was seen by [facility] ID service at the time; was tx'd for 2w for SSI of stump site. CXs from the previous debridement were (+) for E cloacae, E fecalis. Was tx'd w/ meropenem. After completion of IV therapy, she noticed increasing drainage and erythema from the area. ED w/u was notable for HR 90s, BP 152/78, WBC 4.6, Hgb 9.1, LA 1.2, ESR/CRP 62/23. XR of the LE showed cortical irregularity identified about the distal femoral stem concerning for OM. She was started on IV vancomycin, piperacillin/tazobactam, and clindamycin. Orthopedics was consulted; plan is for I&D of the LLE on 12/05. The ID service is consulted for cellulitis/OM of L AKA stump site. Vitals are notable for HR 100, BP 140/93. Labs show WBC 4.6, Hgb 9 .1. During my assessment, patient reports ongoing pain, swelling, and discomfort at LLE AKA amputation site. She denies f/c, n/v/d, SOB, cough, or abdominal pain. No further complaints at this time. Medical history: LLE NF s/p debridement and L AKA, R BKA, COPD/asthma on home O2, prior b/l PE 08/2022 (AC on apixaban), FAY on BIPAP, GERD, HTN, OA, depression, fibromyalgia Surgical history: L TKA 2012, tonsillectomy, wisdom tooth extraction, lipoma resection, hysterectomy, LLE I&D, belt abdominoplasty, incontinence surgery, R BKA, L AKA 10/31 Family history: Pancreatic CA in mother and father Social history: Former smoker; quit 1981; denies ETOH or illicit drug use Allergies: amlodipine, clonazepam, ketamine, lisinopril, vancomycin Code status: FULL 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 ([facility]) 07/27/2020 Asthma Cellulitis Constipation Depression Difficult intubation 12/04/2022 Fibromyalgia GERD (gastroesophageal reflux disease) Hx of right BKA ([facility]) ([facility]) Hypertension Morbidly obese ([facility]) ([facility]) 02/03/2019 BMI 50.52 On home O2 FAY treated with BiPAP Osteoarthritis Osteomyelitis of right foot ([facility]) SCHEDULED FOR THE SURGERY ON 02/11/2019 Seasonal [...] Right 02/11/2019 FOOT SURGERY Right 2019 IN [place] FOOT SURGERY Right 04/08/2019 I&D right foot with antibiotic spacer FOOT SURGERY Right 04/24/2019 I&D;, external fixator FOOT SURGERY Left 08/04/2021 peroneus longus tenolysis - Dr Gamino HYSTERECTOMY 1997 INCISION AND DRAINAGE OF WOUND Left 11/21/2022 LLE INCONTINENCE SURGERY 11/15/2015 synthetic mid urethral sling,cystoscopy [...] Right 05/06/2019 Right Below Knee Amputation (CPT 18476), #2 Excisional debridement right iliac crest (wound 7 cm length, 3 cm width, 7 cm depth) TONSILLECTOMY (HISTORICAL) TOTAL KNEE ARTHROPLASTY Left 2012 ARTHROSCOPY FIRST AND KNEE REPLACED WISDOM TOOTH EXTRACTION WOUND DEBRIDEMENT Left 10/28/2021 irrigation and debridment LLE Current Medications: Current Facility-Administered Medications Medication Dose Route Frequency Provider Last Rate Last Admin acetaminophen (Tylenol) tablet 650 mg 650 mg Oral q4h PRN Matar Matar Or acetaminophen (Tylenol) suppository 650 mg 650 mg Rectal q4h PRN Matar Matar albuterol 108 (90 Base) MCG/ACT inhaler 2 puff 2 puff Inhalation q4h PRN Matar Matar amitriptyline (Elavil) tablet 100 mg 100 mg Oral Nightly Matar Matar 100 mg at 12/04/22 0135 budesonide (Pulmicort) 0.5 MG/2ML nebulizer solution 0.5 mg 0.5 mg Nebulization Daily Matar Macrina cefepime (Maxipime) 2,000 mg in sodium chloride 0.9 % 50 mL IVPB Mini-Bag Plus 2,000 mg [id number] Cristian Jon Maxwell DO 2,000 mg at 12/04/22 1405 citalopram (CeleXA) tablet 20 mg 20 mg Oral Daily Matar Matar 20 mg at 12/04/22 0854 clindamycin in D5W (Cleocin) IVPB 600 mg 600 mg IntraVENous q6h Kevan Parekh MD 100 mL/hr at 12/04/22 1406 600 mg at 12/04/22 1406 [Held by provider] enoxaparin (Lovenox) syringe 40 mg 40 mg SubCUTAneous Daily Matar Matar gabapentin (Neurontin) capsule 300 mg 300 mg Oral Nightly Matar Matar 300 mg at 12/04/22 0134 HYDROmorphone (Dilaudid) injection 0.5 mg 0.5 mg IntraVENous q4h PRN Matar Matar 0.5 mg at 854 Or HYDROmorphone (Dilaudid) injection 1 mg 1 mg IntraVENous q4h PRN Matar Matar 1 mg at 12/04/22 0521 LORazepam (Ativan) tablet 0.5 mg 0.5 mg Oral q8h PRN Matar Matar melatonin tablet 5 mg 5 mg Oral Nightly PRN Matar Matar methocarbamol (Robaxin) tablet 750 mg 750 mg Oral 3 times per day Matar Matar 750 mg at 12/04/22 1352 mometasone-formoterol (Dulera 200) 200-5 MCG/ACT inhaler 2 puff 2 puff Inhalation BID Matar Matar 2puff at 12/04/22 0901 ondansetron ODT (Zofran-ODT) disintegrating tablet 4 mg 4 mg Oral q8h PRN Matar Matar Or ondansetron (Zofran) injection 4 mg 4 mg IntraVENous q6h PRN Matar Matar oxyCODONE-acetaminophen (Percocet) 5-325 MG per tablet 2 tablet 2 tablet Oral q6h PRN Jose Chávez MD 2 tablet at 12/04/22 1352 pantoprazole (ProtoNix) EC tablet 40 mg 40 mg Oral qAM AC Matar Matar 40 mg at 12/04/22 0522 polyethylene glycol (PEG) 3350 (Miralax) packet 17 g 17 g Oral Daily Matar Matar 17 g at 12/04/22 0854 senna-docusate sodium (Senokot-S) 8.6-50 MG tablet 2 tablet 2 tablet Oral Nightly Matar Matar 2 tablet at 12/04/22 0134 tiotropium (Spiriva) 18 MCG per inhalation capsule 18 mcg 1 capsule Inhalation Daily Matar Matar 18mcg at 12/04/22 0854 vancomycin (Vancocin) 1,500 mg in dextrose 5 % 250 mL IVPB 1,500 mg IntraVENous q12h Jose Chávez MD Allergies: Allergies Allergen Reactions Amlodipine Swelling Clonazepam [...] Types: Cigarettes Quit date: 10/01/1981 Years since quittin.2 Smokeless tobacco: Never Vaping Use Vaping Use: Never used Substance and Sexual Activity Alcohol use: Not Currently Drug use: No Sexual activity: Yes Partners: Male Other Topics Concern Not on file Social History Narrative Has been in rehab facility in [place] Lives alone, son close Friends help Social Determinants of Health Financial Resource Strain: Not on file Food Insecurity: Not on file Transportation Needs: No Transportation Needs Lack of Transportation (Medical): No Lack of Transportation (Non-Medical): No Physical Activity: Not on file Stress: Not on file Social Connections: Not on file Intimate Partner Violence: Not At Risk Fear of Current or Ex-Partner: No Emotionally Abused: No Physically Abused: No Sexually Abused: No Housing Stability: Unknown Unable to Pay for Housing in the Last Year: No Number of Places Lived in the Last Year: Not on file Unstable Housing in the Last Year: No Family History: Family History Problem Relation Name Age of Onset Pancreatic cancer Mother Pancreatic cancer Father Review of Systems: Review of Systems Constitutional: Negative for appetite change, chills, diaphoresis, fatigue and fever. Respiratory: Negative for cough, shortness of breath and wheezing. Cardiovascular: Negative for palpitations and leg swelling. Gastrointestinal: Negative for abdominal distention, abdominal pain, nausea and vomiting. Musculoskeletal: Negative for arthralgias, joint swelling and myalgias. Skin: Positive for color change, rash and wound. Negative for pallor. Vitals: Patient Vitals for the past 24 hrs: BP Temp Temp src Pulse Resp SpO2 Height Weight 12/04/22 0857 -- -- -- -- -- -- 5' 7.01 (1.702 m) -- 12/04/22 0526 (!) 140/93 35.8 C (96.5 F) Temporal 89 18 96 % -- -- 12/04/22 0055 127/75 36.9 C (98.4 F) Oral 100 18 98 % -- (!) 339 lb 3.2 oz (154 kg) 12/03/22 2349 (!) 127/98 -- -- 102 16 93 % -- -- 12/03/22 2227 (!) 148/92 -- -- 95 20 94 % -- -- 12/03/22 2127 (!) 160/103 -- -- 100 18 94 % -- -- 12/03/222013 136/75 -- -- 98 20 94 % 5' 7 (1.702 m) (!) 340 lb (154 kg) 12/03/22 1914 (!) 144/60 -- -- 97 16 95 % -- -- 12/03/22 1713 (!) 152/78 36.9 C (98.4 F) Oral 96 16 96 % -- (!) 340 lb (154 kg) Physical Exam: Physical Exam Constitutional: General: She is not in acute distress. Appearance: Normal appearance. She is obese. She is not ill-appearing, toxic- appearing or diaphoretic. HENT: Head: Normocephalic and atraumatic. Nose: Nose normal. Mouth/Throat: Mouth: Mucous membranes are moist. Pharynx: Oropharynx is clear. No oropharyngeal exudate or posterior oropharyngeal erythema. Eyes: General: No scleral icterus. Extraocular Movements: Extraocular movements intact. Pupils: Pupils are equal, round, and reactive to light. Cardiovascular: Rate and Rhythm: Normal rate and regular rhythm. Pulses: Normal pulses. Heart sounds: Normal heart sounds. No murmur heard. No friction rub. No gallop. Pulmonary: Effort: Pulmonary effort is normal. No respiratory distress. Breath sounds: No wheezing, rhonchi or rales. Comments: Diminished breath sounds b/l Prolonged expiratory phase Abdominal: General: Abdomen is flat. Bowel sounds are normal. Palpations: Abdomen is soft. Tenderness: There is no abdominal tenderness. There is no guarding or rebound. Musculoskeletal: General: Swelling, tenderness, deformity and signs of injury present. Normal range of motion. Cervical back: Neck supple. Comments: s/p R BKA s/p L AKA LLE AKA site w/ erythema, swelling Skin: General: Skin is warm and dry. Capillary Refill: Capillary refill takes less than 2 seconds. Coloration: Skin is not pale. Findings: Erythema, lesion and rash present. Neurological: General: No focal deficit present. Mental Status: She is alert. Psychiatric: Mood and Affect: Mood normal. Judgment: Judgment normal. Labs: Lab Results Component Value Date/Time NA 139 12/03/2022 1834 K 4.1 12/03/2022 1834 CL 104 12/03/2022 1834 CO2 29 12/03/2022 1834 BUN 10 12/03/2022 1834 CREATININE 0.59 12/03/2022 1834 CREATININE 0.70 02/14/2022 0918 GLUCOSE 108 (H) 12/03/2022 1834 CALCIUM 8.7 12/03/2022 1834 PROT 7.1 02/01/2022 0426 BILITOT 0.4 02/01/2022 0426 ALKPHOS 80 02/01/2022 0426 AST 31 02/01/2022 0426 PROCAL 0.04 12/04/2022 0149 PROCAL 0.02 11/11/2022 0301 PROCAL 1.77 (H) 01/25/2022 0618 Lab Results Component Value Date/Time WBC 4.6 12/03/2022 183 HGB 9.1 (L) 12/03/2022 183 HCT 28.5 (L) 12/03/2022 183 PLT 284 12/03/20221832 GRANULOCYTES 66.9 02/14/2022 0918 LYMPHOPCT 31.5 12/03/2022 183 MONOPCT 13.3 (H) 12/03/2022 183 LABEOS 3.5 02/14/2022 0918 BASOPCT 1.0 12/03/2022 183 NEUTROABS 2.2 12/03/2022 183 Micro: 11/16 L tissue thigh CXs (+) for E fecalis, E cloacae, B fragilis 11/20 Occult blood x 1, stool (-) 11/22 Blood CX x2 NGTD 12/03 Blood CX x2 NGTD 12/03 L tissue thigh CX (+) for GPC Lines/Drains/Airways: 12/03 RUE PIV Radiography/Echo/Other: 12/03 XR knee 1/2V L Cortical irregularity identified about the distal femoral stem concerning for osteomyelitis, clinical correlation is recommended 12/03 XR femur L 2+V No evidence of acute osseous abnormality 12/03 XR shoulder 2+V L Degenerative changes Antimicrobials, Start/End Dates: 12/03- vancomycin 12/03- piperacillin/tazobactam 12/03- clindamycin Impression: Ms. Haas is a 62 y/o F w/ PMH of LLE NF s/p debridement and L AKA, R BKA, COPD/asthma on home O2, prior b/l PE 08/2022 (AC on apixaban), FAY on BIPAP, GERD, HTN, OA, depression, fibromyalgia. Presented to [facility] ED 12/03 w/ severe pain and erythema of the LLE stump. Recently underwent L AKA 10/31 w/ multiple subsequent I&Ds, w/ the most recent on 11/21/22. Seen by [facility] ID service at the time;was tx'd for 2w for SSI of stump site. CXs from the previous debridement were (+) for E cloacae, E fecalis. Was tx'd w/ meropenem. After completion of IV therapy, she noticed increasing drainage and erythema from the area. XR of the LE showed cortical irregularity identified about the distal femoral stem concerning for OM. On IV vancomycin, piperacillin/tazobactam, and clindamycin. Orthopedics was consulted; plan is for I&D of the LLE on 12/05. The ID service is consulted for cellulitis/OM of L AKA stump site. Plan: 1. Osteomyelitits of the left lower extremity - Patient presented w/ erythema, swelling, drainage of L AKA stump - XR on presentation shows signs consistent with osteomyelitis - Maintain therapy w/ IV vancomycin and clindamycin; d/c piperacillin/tazobactam and start cefepime - Orthopedics has been consulted; plan is for washout 12/05 - Will follow CX results and adjust accordingly 2. Hx of LLE infection s/p L AKA 3. Chronic obstructive pulmonary disease- on home O2 4. Obstructive sleep apnea- on BiPAP 5. Prior b/l PE 08/2022- AC on apixaban 6. Hx of R foot OM s/p R BKA 7. Gastroesophageal reflux disease 8. Stress urinary incontinence 9. Hypertension 10. Osteoarthritis 11. Seasonal allergies 12. Vertigo 13. Asthma 14. Depression 15. Fibromyalgia 16. Obesity Recommendations: 1. Continue IV vancomycin and clindamycin 2. d/c piperacillin/tazobactam and start cefepime based on previous CX results 3. Orthopedics has been consulted; plan is for washout 12/05 4. Will follow CX results and adjust accordingly Thank you for the consult. The ID service will continue to follow. Total time 75 minutes on this day of encounter includes counseling, coordinating plan of care, record and documentation review before and after visit including documentation and time not explicitly included on EMR time stamp for accounting for open encounter. Cristian Maxwell DO [facility] Infectious Diseases Office Tel. [phone] [id number] Note* Care Coordination - Isabela Cummins RN - 12/04/2022 2:10 PM EST Care Managment Initial Assessment Date: 12/05/2022 Patient Name: Siobhan Haas : 1960 Patient Information Source of Information: Patient Cognition/Language: WFL - Within Functional Limits Permission given to speak with patient entry level account representative/caregiver as indicated: Confirmation of Payer with patient/family: Yes Payer Name: [employer] : Confirmation of Primary Care Physician: Primary Caregiver: Family If assistance needed, confirmed caregiver ready, willing and able to care for patient at discharge: Confirmed with: Living Arrangements Current Residence: Private Residence Number of Floors Number of Entry Steps: Bed/Bath Levels: Facility: Facility Name: Plan to Return: Lives with: Children Support Systems: Children, Family members, Friends/neighbors Activities of Daily Living Ambulation: Independent (with use of wheelchair) Bathing/Dressing: Assistance Elimination/Continence/Toileting: Assistance Feeding: Independent Who Assists with Activities of Daily Living: Instrumental Activities of Daily Living Prescription Coverage: Yes Pharmacy Used: Medication Management: Transportation/Shopping: Assistance Provider Transportation Mode: Needs Assistance with Transportation at Discharge: Meal Preparation: Assistance Provider Laundry/Cleaning: Assistance Provider Finances/Bill Paying: Independent Communication: Independent Types of Care Services/Equipment Utilized Care Services: Dialysis Type: Durable Medical Equipment: Wheelchair (standard or power), Hospital Bed Patient's Goal/Discharge Plan Patient expects to be discharged to: rehab Discharge Planning Actions: Continue to follow, Intermediate Facility referral indicated Patient's Choice Rights and [employer] and Collaborative Relationships Disclosed as Indicated for Post-Acute Care: Interdisciplinary Team Engagement: PT/OT, Disease Management Program Social Work Referral for: Additional Information: Met with pt at bedside, introduced self and explained role. Pt came to ed with pain, redness, swelling in stump of left AKA. Pt from home with her son. Pt states she is independent when in her electric wheelchair which she is able to roll herself into. Pt states after her surgery she is agreeable to rehab, would like [facility] or [facility]. [facility], following for dc planning. Isabela Cummins RN [id number] Note* Care Coordination - Isabela Cummins RN - 12/04/2022 2:10 PM EST Care Managment Initial Assessment Date: 12/05/2022 Patient Name: Siobhan Haas : 1960 Patient Information Source of Information: Patient Cognition/Language: WFL - Within Functional Limits Permission given to speak with patient entry level account representative/caregiver as indicated: Confirmation of Payer with patient/family: Yes Payer Name: [employer] : Confirmation of Primary Care Physician: Primary Caregiver: Family If assistance needed, confirmed caregiver ready, willing and able to care for patient at discharge: Confirmed with: Living Arrangements Current Residence: Private Residence Number of Floors Number of Entry Steps: Bed/Bath Levels: Facility: Facility Name: Plan to Return: Lives with: Children Support Systems: Children, Family members, Friends/neighbors Activities of Daily Living Ambulation: Independent (with use of wheelchair) Bathing/Dressing: Assistance Elimination/Continence/Toileting: Assistance Feeding: Independent Who Assists with Activities of Daily Living: Instrumental Activities of Daily Living Prescription Coverage: Yes Pharmacy Used: Medication Management: Transportation/Shopping: Assistance Provider Transportation Mode: Needs Assistance with Transportation at Discharge: Meal Preparation: Assistance Provider Laundry/Cleaning: Assistance Provider Finances/Bill Paying: Independent Communication: Independent Types of Care Services/Equipment Utilized Care Services: Dialysis Type: Durable Medical Equipment: Wheelchair (standard or power), Hospital Bed Patient's Goal/Discharge Plan Patient expects to be discharged to: rehab Discharge Planning Actions: Continue to follow, Intermediate Facility referral indicated Patient's Choice Rights and [employer] and Collaborative Relationships Disclosed as Indicated for Post-Acute Care: Interdisciplinary Team Engagement: PT/OT, Disease Management Program Social Work Referral for: Additional Information: Met with pt at bedside, introduced self and explained role. Pt came to ed with pain, redness, swelling in stump of left AKA. Pt from home with her son. Pt states she is independent when in her electric wheelchair which she is able to roll herself into. Pt states after her surgery she is agreeable to rehab, would like [facility] or [facility]. [facility], [facility] following for dc planning. Isabela Cummins RN [place] [id number] Note* Home Care - Leandra Fuller RN - 12/04/2022 10:34 AM EST Digital Sales Director following case for Discharge Needs. [place] [id number] Note* Home Care - Leandra Fuller RN - 12/04/2022 10:34 AM EST Digital Sales Director following case for Discharge Needs. [facility] [id number] Note* Significant Event - Anahi Hughes RN - 12/04/2022 1:27 AM EST Undecided where or if will have to go to a rehab facility at this time [facility] [id number] Note* Significant Event - Anahi Hughes RN - 12/04/2022 1:27 AM EST Undecided where or if will have to go to a rehab facility at this time [id number] department Note* Indigo Felix RN - 12/04/2022 12:23 AM EST Pt up to 7W at this time Indigo Felix RN 12/04/22 0023 [id number] Emergency department Note* Indigo Felix RN - 12/04/2022 12:23 AM EST Pt up to 7W at this time Indigo Felix RN 12/04/22 0023 * Indigo Felix RN - 12/04/2022 12:11 AM EST Answered pt call light. Pt asking for pain medications. No orders in from admitting team. Dr Schrader messaged with pt request. Pt aware Indigo Felix RN 12/04/22 0011 * Indigo Felix RN - 12/03/2022 11:48 PM EST Answered pt call light. Reattached suction to pt pure wick. Pt resting in bed, NAD. VSS, bed low and locked, call light and belongings in reach. No further needs at this time. Transport in at this time to take pt up to 7W Indigo Felix RN 12/03/22 8684 * Indigo Felix RN - 12/03/2022 11:04 PM EST Med rec completed with pt. Pt LLE elevated on a pillow and chux changed for pt comfort. Pt resting,no needs at this time. Updated on plan of care. Bed low and locked, rails up x2, call light in reach, belongings in reach. VSS, NAD, respirations even and non labored Indigo Felix RN 12/03/22 2307 * Indigo Felix RN - 12/03/2022 10:25 PM EST Answered pt call light. Pt reports she has a LIZAMA and requesting some coffee. Pt provided with black coffee. Pt aware she is NPO at midnight. Lights turned off for comfort. Bed low and locked, rails upx2, call light in reach. VSS. NAD. Respirations even and non labored. No further needs at this time. Belongings in reach on bedside table Indigo Felix RN 12/03/22 2227 * Albaro Matta RN - 12/03/2022 9:54 PM EST Answered patient's call light to assist primary RN. Patient provided a pillow, rosemary simin with ice,and pain medication as requested, approved, and ordered. Following transaction, patient declining further needs, with call light in reach. Primary RN notified. Albaro Matta RN 12/03/22 1075 * Indigo Felix RN - 12/03/2022 8:20 PM EST Pt resting in bed, appear comfortable, belongings in reach. Pt on vitals monitor. Pt educated on the 3 antibiotics she was going to receive. All questions answered. VSS. NAD. Respirations even and non labored. Lights adjusted for pt comfort. No further needs at this time. Chux under LLE changed r/t drainage. Bed low and locked, rails up x2, call light in reach Indigo Felxi RN 12/03/228 * Indigo Felix RN - 12/03/2022 7:56 PM EST At bedside to introduce myself. Pt resting in bed, on vitals monitor. Phlebotomy at bedside drawingblood cultures. VSS. NAD. Respirations even and no labored. No further needs at this time. Bed low and locked, rails up x2, call light in reach. Indigo Felix RN 12/03/222010 * Mariia Mar PA-C - 12/03/2022 5:02 PM EST Images from the original note were not included. Emergency Department Encounter [facility] EMERGENCY DEPT Patient: Siobhan Haas : 1960 Date of Evaluation: 12/03/2022 ED MELISSA Provider: Mariia Mar PA-C EDcare was supervised by Dr. Lr who independently examined and evaluated the patient. Please see their attestation note for further details. Chief Complaint: Chief Complaint Patient presents with Wound Check Per EMS, patient is from home, told by Dr. Mercado to come to ED for evaluation. Patient had a left AKA on 10/31/22. Patient states she noticed redness yesterday, today she had purulent drainage. She denies any fevers or chills. History of Present Illness: I wore appropriate PPE for entire encounter. Siobhan Haas is a 62 y.o. female with past medical history of hypertension, chronic obstructive lung disease, obesity who presented to the emergency department for evaluation of left lower extremity wound. Patient underwent emjiy-nhl-cigv amputation on 10/31/[address] Mercado and then subsequently underwent significant hospital stay for repeated washout due to infection. PICC line was placed prior to discharge and she was continued on IV meropenem. Last dose was on Sunday and PICC line was removed. Patient states that over the past 24 hours, pain has significantly increased in left lower extremity and she has also noticed that the wound site has become significantly red and now has begun draining. States that it feels warm to the touch. She denies any fevers or chills. Family memberin the room states that she has been communicating with Dr. Mercado regarding this, sending him pictures, and was instructed to come to the emergency department for admission and further treatment. Nursing notes were reviewed. Limitations to history: None Outside historians: family member Review of Systems: Positives and pertinent negatives as per HPI. All other systems were reviewed and are acutely negative except as noted. Past History: 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 ([facility]) 07/27/2020 Asthma Cellulitis Constipation Depression Fibromyalgia GERD (gastroesophageal reflux disease) Hx of right BKA ([facility]) ([facility]) Hypertension Morbidly obese ([facility]) ([facility]) 02/03/2019 BMI 50.52 On home O2 FAY treated with BiPAP Osteoarthritis Osteomyelitis of right foot ([facility]) SCHEDULED FOR THE SURGERY ON 02/11/2019 Seasonal [...] Right 02/11/2019 FOOT SURGERY Right 2019 IN [place] FOOT SURGERY Right 04/08/2019 I&D right foot with antibiotic spacer FOOT SURGERY Right 04/24/2019 I&D;, external fixator FOOT SURGERY Left 08/04/2021 peroneus longus tenolysis - Dr Gamino HYSTERECTOMY 1997 INCISION AND DRAINAGE OF WOUND Left 11/21/2022 LLE INCONTINENCE SURGERY 11/15/2015 synthetic mid urethral sling,cystoscopy [...] Right 05/06/2019 Right Below Knee Amputation (CPT 07117), #2 Excisional debridement right iliac crest (wound 7 cm length, 3 cm width, 7 cm depth) TONSILLECTOMY (HISTORICAL) TOTAL KNEE ARTHROPLASTY Left 2012 ARTHROSCOPY FIRST AND KNEE REPLACED WISDOM TOOTH EXTRACTION WOUND DEBRIDEMENT Left 10/28/2021 irrigation and debridment LLE Social History Socioeconomic History Marital status: Tobacco Use Smoking status: Former Packs/day: 0.15 Types: Cigarettes Quit date: 10/01/1981 Years since quittin.2 Smokeless tobacco: Never Substance and Sexual Activity Alcohol use: Yes Alcohol/week: 0.0 standard drinks Drug use: No Social History Narrative Has been in rehab facility in [place] Lives alone, son close Friends help Social Determinants of Health Intimate Partner Violence: Not At Risk Fear of Current or Ex-Partner: No Emotionally Abused: No Physically Abused: No Sexually Abused: No Medications/Allergies: Previous Medications ACETAMINOPHEN (TYLENOL) 500 MG TABLET Take 2 tablets (1,000 mg) by mouth in the morning and 2 tablets (1,000 mg) at noon and 2 tablets (1,000 mg) before bedtime. Do all this for 10 days. ALBUTEROL (2.5 MG/3ML) 0.083% NEBULIZER SOLUTION 2.5 mg. ALBUTEROL 108 (90 BASE) MCG/ACT INHALER INHALE 2 PUFFS FOUR TIMES DAILY NEEDED FOR WHEEZING AMITRIPTYLINE (ELAVIL) 100 MG TABLET APIXABAN (ELIQUIS) 5 MG TABLET Take 1 tablet (5 mg) by mouth 2 times daily. BUDESONIDE (PULMICORT) 0.25 MG/2ML NEBULIZER SOLUTION BUDESONIDE-FORMOTEROL (SYMBICORT) 160-4.5 MCG/ACT INHALER Inhale 2 puffs in the morning and 2 puffsin the evening. CHOLECALCIFEROL (VITAMIN D-3) 1.25 MG (06117 UT) CAPSULE Take by mouth 1 (one) time per week. CITALOPRAM (CELEXA) 40 MG TABLET Take 40 mg by mouth in the morning. FERROUS SULFATE 325 (65 FE) MG TABLET Take 1 tablet (325 mg) by mouth every other day. Do not startbefore November 28, 2022. FLUTICASONE (FLONASE) 50 MCG/ACT NASAL SPRAY 1 spray. GABAPENTIN (NEURONTIN) 300 MG CAPSULE Take 1 capsule (300 mg) by mouth Nightly. LIDOCAINE 4 % PATCH Apply 1 patch topically daily. Do not start before November 03, 2022. LORAZEPAM (ATIVAN) 0.5 MG TABLET Take 0.5 mg by mouth. Take 1-2 tablets every 8 hours as needed foranxiety METHOCARBAMOL (ROBAXIN) 750 MG TABLET Take 1 tablet (750 mg) by mouth in the morning and 1 tablet (750 mg) at noon and 1 tablet (750 mg) before bedtime. Do all this for 10 days. OMEPRAZOLE (PRILOSEC) [address] CAPSULE Take 1 capsule by mouth in the morning. SENNA-DOCUSATE SODIUM (SENOKOT-S) 8.6-50 MG TABLET Take 2 tablets by mouth Nightly. TIOTROPIUM (SPIRIVA) [address] 18 mcg into inhaler and inhale in the morning. Allergies Allergen Reactions Amlodipine Swelling Clonazepam Other reaction(s): Other (See Comments) made me sleep & cry Ketamine Lisinopril Swelling Vancomycin Rash Physical Exam: ED Triage Vitals [12/03/22 1713] Temp Heart Rate Resp BP 36.9 C (98.4 F) 96 16 (!) 152/78 SpO2 Temp Source Heart Rate Source Patient Position 96 % Oral Monitor -- BP Location FiO2 (%) -- -- Physical Exam Vitals and nursing note reviewed. Constitutional: General: She is not in acute distress. HENT: Head: Normocephalic and atraumatic. Mouth/Throat: Mouth: Mucous membranes are moist. Eyes: Extraocular Movements: Extraocular movements intact. Pupils: Pupils are equal, round, and reactive to light. Cardiovascular: Rate and Rhythm: Normal rate and regular rhythm. Pulses: Normal pulses. Pulmonary: Effort: Pulmonary effort is normal. Musculoskeletal: General: Swelling, tenderness and signs of injury present. Cervical back: Normal range of motion. Comments: Left AKA present. Patient able to flex and extend at the hips bilaterally without difficulty. Right BKA present as well. Skin: Capillary Refill: Capillary refill takes 2 to 3 seconds. Comments: RLE normal in color without erythema warmth or tenderness. LLE erythematous and warm uponpalpation. Wound edges with serous drainage. See photos for details. Neurological: General: No focal deficit present. Mental Status: She is alert and oriented to person, place, and time. Psychiatric: Mood and Affect: Mood normal. Behavior: Behavior normal. Screenings: Patients symptoms are consistent with sepsis, severe sepsis, or septic shock (If yes use .sepsiscoremeasure): no Diagnostics: Labs: Labs Reviewed CULTURE, AEROBIC BACTERIA WITH GRAM STAIN - Abnormal Result Value Culture Culture in progress Gram Stain Result (*) Value: Rare Polymorphonuclear leukocytes per low power field Gram Stain Result Rare Gram positive cocci (*) CBC WITH AUTO DIFFERENTIAL - Abnormal Auto WBC 4.6 RBC 3.57 (*) Hemoglobin 9.1 (*) Hematocrit 28.5 (*) MCV 79.6 (*) MCH 25.5 (*) MCHC 32.1 RDW 22.2 (*) Platelets 284 MPV 8.2 nRBC 0.0 Neutrophils Relative 49.2 Lymphocytes Relative 31.5 Monocytes Relative 13.3 (*) Eosinophils Relative 5.0 Basophils Relative 1.0 Neutrophils Absolute 2.2 Lymphocytes Absolute 1.4 Monocytes Absolute 0.6 Eosinophils Absolute 0.2 Basophils Absolute 0.0 BASIC METABOLIC PANEL - Abnormal SODIUM 139 POTASSIUM 4.1 CHLORIDE 104 CARBON DIOXIDE 29 UREA NITROGEN 10 CREATININE 0.59 GLUCOSE 108 (*) CALCIUM 8.7 ANION GAP 6 eGFR >90.0 C-REACTIVE PROTEIN - Abnormal C REACTIVE PROTEIN 23.2 (*) SEDIMENTATION RATE, AUTOMATED - Abnormal Sed Rate 62 (*) BLOOD CULTURE - Normal Blood Culture Blood culture incubation started Narrative: Blood Collection Site: Left Arm BLOOD CULTURE - Normal Blood Culture Blood culture incubation started Narrative: Blood Collection Site: Left Hand LACTIC ACID, SEPSIS WITH REFLEX IF ELEVATED - Normal LACTIC ACID 1.2 VANCOMYCIN, RANDOM Radiographs: XR shoulder 2+ views left Final Result 1. Degenerative changes. Report Dictated on Electronically Signed By: Ozzie Ambriz Electronically Signed Date/Time: 12/03/2022 9:22 PM EST XR femur left 2+ views Final Result No evidence of acute osseous abnormality. Report Dictated on Electronically Signed By: Santiago Malloy Electronically Signed Date/Time: 12/03/2022 6:47 PM EST XR knee 1 or 2 views left Final Result Cortical irregularity identified about the distal femoral stem concerning for osteomyelitis, clinical correlation is recommended.. Report Dictated on Electronically Signed By: Santiago Malloy Electronically Signed Date/Time: 12/03/2022 6:45 PM EST Procedures: N/A EKG: All EKG's are interpreted by the Emergency Department Physician in the absence of a management associate. Please see Epiphany for interpretation of EKG. Emergency Department Course and Medical Decision Making In brief, Siobhan Haas is a 62 y.o. female who presented to the emergency department for evaluation of left lower extremity wound s/p [id number]-[id number]-[id number] amputation. External records reviewed: Patient underwent left lcirv-jpb-nylx amputation on 10/31/[address] Mercado. She was later readmitted for 17 days 11/10/22-11/27/22 due to surgical wound infection and underwent multiple irrigation and debridements. PICC line placed prior to discharge for continuation of IV antibiotics. Physical exam as above, patient nontoxic in appearance. Vital signs upon arrival with mild hypertension, otherwise wnl. Differential considerations included cellulitis, sepsis, osteomyelitis, necrotizing fasciitis. Patient given IV Dilaudid for pain control and started on IV antibiotics for broad-spectrum coverage of skin and soft tissue infection. Initial workup includes blood cultures, lactic acid, CBC, BMP, x-ray. Diagnostics reviewed: Lactic acid 1.2, no evidence of sepsis. No leukocytosis. Hemoglobin 9.1, improved from baseline. BMP without electrolyte derangements. Renal function is normal. XR left knee negative for acute fracture or dislocation, although does have some cortical irregularity concerning for osteomyelitis. Orthopedic surgery was consulted upon patient's arrival to the ED as she is well-known by their team. See their note for details. Recommended medical admission for OR tomorrow and further management as needed. Reevaluation: Patient is agreeable with plan for admission. Requested additional dose of pain medication which was provided following her home regimen. Plan: Discussed patient's history, current presentation and ED work-up thus far [facility] who[facility] to medicine. Admitted in stable condition. MDM elements: Diagnostic tests considered but not performed: none Diagnostics interpreted by me: Xray(s) Discussions with other clinicians: Admitting team IMS and [facility] orth[facility] surg Chronic conditions impacting care: Hypertension and obesity Social determinants of health affecting care: inability to ambulate . ED Medications managed: Medications vancomycin (Vancocin) 1,500 mg in dextrose 5 % 250 mL IVPB (1,500 mg IntraVENous New Bag 12/03/222122) piperacillin-tazobactam (Zosyn) IVPB 3.375 g (has no administration in time range) clindamycin in D5W (Cleocin) IVPB 600 mg (has no administration in time range) HYDROmorphone (Dilaudid) injection 1 mg (1 mg IntraVENous Given 12/03/221914) piperacillin-tazobactam (Zosyn) IVPB 3,375 mg (0 mg IntraVENous Stopped 12/03/222051) clindamycin in D5W (Cleocin) IVPB 600 mg (0 mg IntraVENous Stopped 12/03/222121) oxyCODONE-acetaminophen (Percocet) 5-325 MG per tablet 2 tablet (2 tablets Oral Given 12/03/222152) Prescription drugs considered: n/a patient admitted Critical Care: None Consults: IP CONSULT TO ORTHOPEDICS SURGERY FINAL IMPRESSION 1. Cellulitis of left lower extremity DISPOSITION: Admit 12/03/2022 10:24:27 PM PATIENT REFERRED TO: No follow-up provider specified. DISCHARGE MEDICATIONS: New Prescriptions No medications on file Mariia Mar PA-C [employer] Mariia Mar PA-C 12/03/22 [id number] Associated attestation - Rigo Lr MD - 12/03/2022 11:23 PM EST Emergency Medicine Attending Please see previous note. Rigo Lr MD * Rigo Lr MD - 12/03/2022 5:02 PM EST Emergency Medicine Attending Note I personally saw the patient and performed a substantive portion of the visit including a history and physical examination. I discussed all aspects of the medical decision making with the retail security professional. This will serve as my supervisory note and shared attestation. History 62-year-old female presents complaining of pain redness and swelling of her left leg. She recently underwent an [id number] amputation of her left leg. She did well postoperatively until the last few days when she had redness swelling and drainage. She called her orthopedic surgeon who told her to come to the emergency department and be hospitalized with revision scheduled after the weekend. No other complaint. Exam Not febrile not toxic red swollen stump with al in place and drainage, mild fluctuance, no proximal streaking Medical Decision Making / ED Course No evidence of of systemic infection. Care coordination with orthopedic surgery service and the hospital service. Patient given analgesics with improvement of her symptoms. Orthopedics requested Vanc, Zosyn and Clinda - patient allergic to Vanc, the others ordered. Impression Postoperative infection Plan Hospitalization (Please note that portions of this note may have been completed with a voice recognition program. Efforts were made to edit the dictations but occasionally words are mis-transcribed.) MD Rigo Galan MD 12/03/22 2322 * Eva Akhtar RN - 12/03/2022 5:02 PM EST Bed: 10 Expected date: Expected time: Means of arrival: Comments: EMS when clean Eva Akhtar RN 12/03/22 1712 documented in this [facility]03-06-2023 Emergency department Note* Indigo Felix RN - 12/04/2022 12:11 AM EST Answered pt call light. Pt asking for pain medications. No orders in from admitting team. Dr Schrader messaged with pt request. Pt aware Indigo Felix RN 12/04/22 0011 [id number]* Indigo Felix RN - 12/03/2022 11:48 PM EST Answered pt call light. Reattached suction to pt pure wick. Pt resting in bed, NAD. VSS, bed low and locked, call light and belongings in reach. No further needs at this time. Transport in at this time to take pt up to 7W Indigo Felix RN 12/03/22 3380 [id number] History and physical note* Macrina Schrader - 12/03/2022 11:43 PM EST Images from the original note were not included. Attending History and Physical Admit Date: 12/03/2022 PCP: Oj Maddox CHIEF COMPLAINT: Chief Complaint Patient presents with Wound Check Per EMS, patient is from home, told by Dr. Mercado to come to ED for evaluation. Patient had a left AKA on 10/31/22. Patient states she noticed redness yesterday, today she had purulent drainage. She denies any fevers or chills. Reason for Admission: Left stump infection with possible osteomyelitis History Obtained From: patient HISTORY OF PRESENT ILLNESS: Siobhan is a 62 y.o. female with past medical history of right BKA and recent left AKA on 10/31, morbid obesity, obstructive sleep apnea on BiPAP, history of PE/DVT on Eliquis, COPD/asthma who presents to ER with 1 day history of left stump redness and severe pain 07/10, with puss oozing from the stump site. She called Dr. Mercado who recommended her to go to ER. She was evaluated by orthopedics, and planning on wash out surgery on Sunday. Pt denies any fever, nausea, vomiting, SOB, cough, chest pain, abdominal pain, diarrhea, blood in stool or black stool. Vitals in ER: Slightly tachycardic in the upper 90s, febrile Hgb 9.1, MCV 79 chronic BUN/Cr 10/0.6 Lactic acid 1.2 CRP/ESR 23/62 EKG not remarkably different compared with previous EKG Xray left knee Impression: Cortical irregularity identified about the distal femoral stem concerning for osteomyelitis, clinical correlation is recommended. 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 ([facility]) 07/27/2020 Asthma Cellulitis Constipation Depression Fibromyalgia GERD (gastroesophageal reflux disease) Hx of right BKA ([facility]) ([facility]) Hypertension Morbidly obese ([facility]) ([facility]) 02/03/2019 BMI 50.52 On home O2 FAY treated with BiPAP Osteoarthritis Osteomyelitis of right foot ([facility]) SCHEDULED FOR THE SURGERY ON 02/11/2019 Seasonal [...] Right 02/11/2019 FOOT SURGERY Right 2019 [place] FOOT SURGERY Right 04/08/2019 I&D right foot with antibiotic spacer FOOT SURGERY Right 04/24/2019 I&D;, external fixator FOOT SURGERY Left 08/04/2021 peroneus longus tenolysis - Dr Gamino HYSTERECTOMY 1996 INCISION AND DRAINAGE OF WOUND Left 11/21/2022 LLE INCONTINENCE SURGERY 11/15/2015 synthetic mid urethral sling,cystoscopy [...] Right 05/06/2019 Right Below Knee Amputation (CPT 82815), #2 Excisional debridement right iliac crest (wound [...] Types: Cigarettes Quit date: 10/01/1981 Years since quittin.2 Smokeless tobacco: Never Vaping Use Vaping Use: Never used Substance and Sexual Activity Alcohol use: Not Currently Drug use: No Sexual activity: Yes Partners: Male Other Topics Concern Not on file Social History Narrative Has been in rehab facility in [place] Lives alone, son close Friends help Social Determinants of Health Financial Resource Strain: Not on file Food Insecurity: Not on file Transportation Needs: No Transportation Needs Lack of Transportation (Medical): No Lack of Transportation (Non-Medical): No Physical Activity: Not on file Stress: Not on file Social Connections: Not on file Intimate Partner Violence: Not At Risk Fear of Current or Ex-Partner: No Emotionally Abused: No Physically Abused: No Sexually Abused: No Housing Stability: Unknown Unable to Pay for Housing in the Last Year: No Number of Places Lived in the Last Year: Not on file Unstable Housing in the Last Year: No Family History: Family History Problem Relation Name Age of Onset Pancreatic cancer Mother Pancreatic cancer Father Medications Prior to Admission: No current facility-administered medications on file prior to encounter. Current Outpatient Medications on File Prior to Encounter Medication Sig Dispense Refill acetaminophen (Tylenol) 500 MG tablet Take 2 tablets (1,000 mg) by mouth in the morning and 2 tablets (1,000 mg) at noon and 2 tablets (1,000 mg) before bedtime. Do all this for 10 days. 30 tablet 0 albuterol (2.5 MG/3ML) 0.083% nebulizer solution 2.5 mg. albuterol 108 (90 Base) MCG/ACT inhaler INHALE 2 PUFFS FOUR TIMES DAILY NEEDED FOR WHEEZING amitriptyline (Elavil) 100 MG tablet apixaban (Eliquis) 5 MG tablet Take 1 tablet (5 mg) by mouth 2 times daily. 60 tablet 0 Ascorbic Acid (VITAMIN C PO) Take 1 tablet by mouth every other day. Take with Iron tablets budesonide (Pulmicort) 0.25 MG/2ML nebulizer solution budesonide-formoterol (Symbicort) 160-4.5 MCG/ACT inhaler Inhale 2 puffs in the morning and 2 puffsin the evening. cholecalciferol (Vitamin D-3) 1.25 MG (19618 UT) capsule Take by mouth 1 (one) time per week. citalopram (CeleXA) 40 MG tablet Take 40 mg by mouth in the morning. ferrous sulfate 325 (65 Fe) MG tablet Take 1 tablet (325 mg) by mouth every other day. Do not startbefore November 28, 2022. 15 tablet 11 fluticasone (Flonase) 50 MCG/ACT nasal spray 1 spray. gabapentin (Neurontin) 300 MG capsule Take 1 capsule (300 mg) by mouth Nightly. 30 capsule 0 Lidocaine 4 % patch Apply 1 patch topically daily. Do not start before November 03, 2022. (Patient not taking: Reported on 12/04/2022) LORazepam (Ativan) 0.5 MG tablet Take 0.5 mg by mouth. Take 1-2 tablets every 8 hours as needed foranxiety [] meropenem (Merrem) 1 g injection Infuse 2 g into a venous catheter in the morning and 2 gat noon and 2 g before bedtime. Do all this for 3 days. 18 g 0 methocarbamol (Robaxin) 750 MG tablet Take 1 tablet (750 mg) by mouth in the morning and 1 tablet (750 mg) at noon and 1 tablet (750 mg) before bedtime. Do all this for 10 days. 30 tablet 0 omeprazole (PriLOSEC) [address] capsule Take 1 capsule by mouth in the morning. [] oxyCODONE (Roxicodone) 10 MG immediate release tablet Take 1 tablet (10 mg) by mouth every 4 hours as needed for moderate pain (4-6) for up to 5 days. 15 tablet 0 [] polyethylene glycol, PEG, 3350 (Miralax) 17 g packet Take 17 g by mouth daily for 3 days.Do not start before November 28, 2022. 3 packet 0 senna-docusate sodium (Senokot-S) 8.6-50 MG tablet Take 2 tablets by mouth Nightly. 60 tablet 11 tiotropium (Spiriva) [address] 18 mcg into inhaler and inhale in the morning. Allergies: Allergies Allergen Reactions Amlodipine Swelling Clonazepam Other reaction(s): Other (See Comments) made me sleep & cry Ketamine Lisinopril Swelling Vancomycin Rash REVIEW OF SYSTEMS: All other systems were reviewed and are negative. Vitals: BP 127/75 Pulse 100 Temp 36.9 C (98.4 F) (Oral) Resp 18 Ht 5' 7 (1.702 m) Wt (!) 339 lb 3.2 oz (154 kg) SpO2 98% BMI 53.13 kg/m Pulse Ox: SpO2 Av.9 % Min: 93 % Max: 98 % Supplemental O2: PHYSICAL EXAM: General appearance: No apparent distress, appears stated age and cooperative with exam. HEENT: Normal cephalic, atraumatic without obvious deformity. Pupils equal, round, and reactive to light. Extra ocular muscles intact. Conjunctivae/corneas clear. Neck: Supple, with full range of motion. No jugular venous distention. Trachea midline. No lymphadenopathy. Respiratory: clear breath sounds, no crackles, no wheezing, not in respiratory distress, no use of accessory muscles Cardiovascular: sinus tachycardia with normal S1/S2 , =3/6 systolic murmur at LLBS, no rubs or gallops. Abdomen: Soft, non-tender, non-distended with normal bowel sounds. No rebound or guarding. Musculoskeletal: no pitting edema, no clubbing or deformity + s/p left AKA with red warm tender swelling around the surgical wound + S/P right BKA looks clean Skin: Skin color, texture, turgor normal. No rashes or lesions. Neurologic: Alert and oriented, Neurovascularly intact without any focal sensory/motor deficits. Cranial nerves: II-XII intact, grossly non-focal. DATA: CBC: Recent Labs 12/03/22 1833 WBC 4.6 RBC 3.57* HGB 9.1* HCT 28.5* MCV 79.6* RDW 22.2* PLT 284 BMP: Recent Labs 12/03/22 1834 NA 139 K 4.1 CL 104 CO2 29 BUN 10 CREATININE 0.59 GLUCOSE 108* CALCIUM 8.7 ANIONGAP 6 LIVER PROFILE:No results for input(s): AST, ALT, BILITOT, ALKPHOS, PROT in the last 72 hours. No lab exists for component: LABALBU PT/INR: Recent Labs 12/04/22 0149 PROTIME 10.7 INR 1.0 CARDIAC ENZYMES: No results for input(s): TROPONINI in the last 72 hours. Procalcitonin: No results found for: PROCAL Urine Culture: No results found for this or any previous visit. COVID-19 PCR: No results for input(s): COVID19 in the last 72 hours. I reviewed: [x] laboratory results [x] radiographic results At the time of today's encounter. Pt was advised of the results. Assessment and Plan Problem Cellulitis of Left Lower Extremity Hld (Hyperlipidemia) Surgical Wound Infection Htn (Hypertension) Pansystolic Murmur Obstructive Sleep Apnea Syndrome Gastroesophageal Reflux Disease History of Right Below Knee Amputation (Hcc) Cellulitis of left lower extremity Suspected left leg osteomyelitis Surgical wound infection Status post recent above-knee amputation on 10/31/2022 Patient presents with 1 day history of surgical wound discharge and redness with severe pain aroundthe incision, contacted her orthopedic surgeon who recommended her coming to ER, she was evaluated by orthopedic surgery and planning on surgery on Sunday. Pre-op evaluation: Patient has revised cardiac risk index score 0 and should be at minor risk for surgery with cardiac complications. Surgical wound culture was sent, follow results Wide spectrum antibiotics coverage was started with vancomycin and Zosyn Consult ID pain control History of PE/DVT: Holding Eliquis for anticipated surgery on Sunday COPD/asthma: Not wheezing, continue Pulmicort, Dulera, albuterol as needed Peripheral neuropathy: Amitriptyline and gabapentin GERD: Omeprazole -DVT prophylaxis: [x] Lovenox [] Heparin [x] SCDs [x] Encourage ambulation [] Already on Anticoagulation -see below for additional orders, further recommendations to follow Orders Placed This Encounter Procedures Blood culture Blood culture Culture, Aerobic Bacteria with Gram Stain XR knee 1 or 2 views left XR femur left 2+ views XR shoulder 2+ views left CBC auto differential Basic metabolic panel Lactic acid, sepsis, with reflex if elevated C-reactive protein Sedimentation rate, automated Vancomycin, random CBC auto differential Basic Metabolic Panel w/ Mg Reflex Protime-INR Type and Screen Procalcitonin Test Adult diet Regular NPO diet NPO except: Sips of Water with Meds Vital Signs Neurovascular checks Weight-bearing restrictions Elevate extremity (specify) Activity Up With Assistance Vital Signs Notify physician per STANDARD parameters Notify patient's primary care provider of admission No Anticoagulants Full code vancomycin IV - consult pharmacy to dose Inpatient consult to Infectious Diseases vancomycin IV - consult pharmacy to dose OT eval and treat PT eval and treat Initiate Oxygen Therapy Protocol Home BiPAP or CPAP Insert peripheral IV Admit to inpatient Code status: Full Code Please forward a copy of this H&P to the patient's PCP. Thank you. Electronically signed by Macrina Schrader MD at 2:55 AM [id number] History and physical note* Haydenama Macrina - 12/03/2022 11:43 PM EST Images from the original note were not included. Attending History and Physical Admit Date: 12/03/2022 PCP: Oj Maddox CHIEF COMPLAINT: Chief Complaint Patient presents with Wound Check Per EMS, patient is from home, told by Dr. Mercado to come to ED for evaluation. Patient had a left AKA on 10/31/22. Patient states she noticed redness yesterday, today she had purulent drainage. She denies any fevers or chills. Reason for Admission: Left stump infection with possible osteomyelitis History Obtained From: patient HISTORY OF PRESENT ILLNESS: Siobhan is a 62 y.o. female with past medical history of right BKA and recent left AKA on 10/31, morbid obesity, obstructive sleep apnea on BiPAP, history of PE/DVT on Eliquis, COPD/asthma who presents to ER with 1 day history of left stump redness and severe pain /, with puss oozing from the stump site. She called Dr. Mercado who recommended her to go to ER. She was evaluated by orthopedics, and planning on wash out surgery on Sunday. Pt denies any fever, nausea, vomiting, SOB, cough, chest pain, abdominal pain, diarrhea, blood in stool or black stool. Vitals in ER: Slightly tachycardic in the upper 90s, febrile Hgb 9.1, MCV 79 chronic BUN/Cr 10/0.6 Lactic acid 1.2 CRP/ESR 23/62 EKG not remarkably different compared with previous EKG Xray left knee Impression: Cortical irregularity identified about the distal femoral stem concerning for osteomyelitis, clinical correlation is recommended. 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 ([facility]) 07/27/2020 Asthma Cellulitis Constipation Depression Fibromyalgia GERD (gastroesophageal reflux disease) Hx of right BKA ([facility]) ([facility]) Hypertension Morbidly obese ([facility]) ([facility]) 02/03/2019 BMI 50.52 On home O2 FAY treated with BiPAP Osteoarthritis Osteomyelitis of right foot ([facility]) SCHEDULED FOR THE SURGERY ON 02/11/2019 Seasonal [...] Right 02/11/2019 FOOT SURGERY Right 2019 [place] FOOT SURGERY Right 04/08/2019 I&D right foot with antibiotic spacer FOOT SURGERY Right 04/24/2019 I&D;, external fixator FOOT SURGERY Left 08/04/2021 peroneus longus tenolysis - Dr Gamino HYSTERECTOMY 1997 INCISION AND DRAINAGE OF WOUND Left 11/21/2022 LLE INCONTINENCE SURGERY 11/15/2015 synthetic mid urethral sling,cystoscopy [...] Right 05/06/2019 Right Below Knee Amputation (CPT 04190), #2 Excisional debridement right iliac crest (wound [...] Types: Cigarettes Quit date: 10/01/1981 Years since quittin.2 Smokeless tobacco: Never Vaping Use Vaping Use: Never used Substance and Sexual Activity Alcohol use: Not Currently Drug use: No Sexual activity: Yes Partners: Male Other Topics Concern Not on file Social History Narrative Has been in rehab facility in [place] Lives alone, son close Friends help Social Determinants of Health Financial Resource Strain: Not on file Food Insecurity: Not on file Transportation Needs: No Transportation Needs Lack of Transportation (Medical): No Lack of Transportation (Non-Medical): No Physical Activity: Not on file Stress: Not on file Social Connections: Not on file Intimate Partner Violence: Not At Risk Fear of Current or Ex-Partner: No Emotionally Abused: No Physically Abused: No Sexually Abused: No Housing Stability: Unknown Unable to Pay for Housing in the Last Year: No Number of Places Lived in the Last Year: Not on file Unstable Housing in the Last Year: No Family History: Family History Problem Relation Name Age of Onset Pancreatic cancer Mother Pancreatic cancer Father Medications Prior to Admission: No current facility-administered medications on file prior to encounter. Current Outpatient Medications on File Prior to Encounter Medication Sig Dispense Refill acetaminophen (Tylenol) 500 MG tablet Take 2 tablets (1,000 mg) by mouth in the morning and 2 tablets (1,000 mg) at noon and 2 tablets (1,000 mg) before bedtime. Do all this for 10 days. 30 tablet 0 albuterol (2.5 MG/3ML) 0.083% nebulizer solution 2.5 mg. albuterol 108 (90 Base) MCG/ACT inhaler INHALE 2 PUFFS FOUR TIMES DAILY NEEDED FOR WHEEZING amitriptyline (Elavil) 100 MG tablet apixaban (Eliquis) 5 MG tablet Take 1 tablet (5 mg) by mouth 2 times daily. 60 tablet 0 Ascorbic Acid (VITAMIN C PO) Take 1 tablet by mouth every other day. Take with Iron tablets budesonide (Pulmicort) 0.25 MG/2ML nebulizer solution budesonide-formoterol (Symbicort) 160-4.5 MCG/ACT inhaler Inhale 2 puffs in the morning and 2 puffsin the evening. cholecalciferol (Vitamin D-3) 1.25 MG (35228 UT) capsule Take by mouth 1 (one) time per week. citalopram (CeleXA) 40 MG tablet Take 40 mg by mouth in the morning. ferrous sulfate 325 (65 Fe) MG tablet Take 1 tablet (325 mg) by mouth every other day. Do not startbefore November 28, 2022. 15 tablet 11 fluticasone (Flonase) 50 MCG/ACT nasal spray 1 spray. gabapentin (Neurontin) 300 MG capsule Take 1 capsule (300 mg) by mouth Nightly. 30 capsule 0 Lidocaine 4 % patch Apply 1 patch topically daily. Do not start before November 03, 2022. (Patient not taking: Reported on 12/04/2022) LORazepam (Ativan) 0.5 MG tablet Take 0.5 mg by mouth. Take 1-2 tablets every 8 hours as needed foranxiety [] meropenem (Merrem) 1 g injection Infuse 2 g into a venous catheter in the morning and 2 gat noon and 2 g before bedtime. Do all this for 3 days. 18 g 0 methocarbamol (Robaxin) 750 MG tablet Take 1 tablet (750 mg) by mouth in the morning and 1 tablet (750 mg) at noon and 1 tablet (750 mg) before bedtime. Do all this for 10 days. 30 tablet 0 omeprazole (PriLOSEC) [address] capsule Take 1 capsule by mouth in the morning. [] oxyCODONE (Roxicodone) 10 MG immediate release tablet Take 1 tablet (10 mg) by mouth every 4 hours as needed for moderate pain (4-6) for up to 5 days. 15 tablet 0 [] polyethylene glycol, PEG, 3350 (Miralax) 17 g packet Take 17 g by mouth daily for 3 days.Do not start before November 28, 2022. 3 packet 0 senna-docusate sodium (Senokot-S) 8.6-50 MG tablet Take 2 tablets by mouth Nightly. 60 tablet 11 tiotropium (Spiriva) [address] 18 mcg into inhaler and inhale in the morning. Allergies: Allergies Allergen Reactions Amlodipine Swelling Clonazepam Other reaction(s): Other (See Comments) made me sleep & cry Ketamine Lisinopril Swelling Vancomycin Rash REVIEW OF SYSTEMS: All other systems were reviewed and are negative. Vitals: BP 127/75 Pulse 100 Temp 36.9 C (98.4 F) (Oral) Resp 18 Ht 5' 7 (1.702 m) Wt (!) 339 lb 3.2 oz (154 kg) SpO2 98% BMI 53.13 kg/m Pulse Ox: SpO2 Av.9 % Min: 93 % Max: 98 % Supplemental O2: PHYSICAL EXAM: General appearance: No apparent distress, appears stated age and cooperative with exam. HEENT: Normal cephalic, atraumatic without obvious deformity. Pupils equal, round, and reactive to light. Extra ocular muscles intact. Conjunctivae/corneas clear. Neck: Supple, with full range of motion. No jugular venous distention. Trachea midline. No lymphadenopathy. Respiratory: clear breath sounds, no crackles, no wheezing, not in respiratory distress, no use of accessory muscles Cardiovascular: sinus tachycardia with normal S1/S2 , =3/6 systolic murmur at LLBS, no rubs or gallops. Abdomen: Soft, non-tender, non-distended with normal bowel sounds. No rebound or guarding. Musculoskeletal: no pitting edema, no clubbing or deformity + s/p left AKA with red warm tender swelling around the surgical wound + S/P right BKA looks clean Skin: Skin color, texture, turgor normal. No rashes or lesions. Neurologic: Alert and oriented, Neurovascularly intact without any focal sensory/motor deficits. Cranial nerves: II-XII intact, grossly non-focal. DATA: CBC: Recent Labs 12/03/22 1833 WBC 4.6 RBC 3.57* HGB 9.1* HCT 28.5* MCV 79.6* RDW 22.2* PLT 284 BMP: Recent Labs 12/03/22 1834 NA 139 K 4.1 CL 104 CO2 29 BUN 10 CREATININE 0.59 GLUCOSE 108* CALCIUM 8.7 ANIONGAP 6 LIVER PROFILE:No results for input(s): AST, ALT, BILITOT, ALKPHOS, PROT in the last 72 hours. No lab exists for component: LABALBU PT/INR: Recent Labs 12/04/22 0149 PROTIME 10.7 INR 1.0 CARDIAC ENZYMES: No results for input(s): TROPONINI in the last 72 hours. Procalcitonin: No results found for: PROCAL Urine Culture: No results found for this or any previous visit. COVID-19 PCR: No results for input(s): COVID19 in the last 72 hours. I reviewed: [x] laboratory results [x] radiographic results At the time of today's encounter. Pt was advised of the results. Assessment and Plan Problem Cellulitis of Left Lower Extremity Hld (Hyperlipidemia) Surgical Wound Infection Htn (Hypertension) Pansystolic Murmur Obstructive Sleep Apnea Syndrome Gastroesophageal Reflux Disease History of Right Below Knee Amputation (Hcc) Cellulitis of left lower extremity Suspected left leg osteomyelitis Surgical wound infection Status post recent above-knee amputation on 10/31/2022 Patient presents with 1 day history of surgical wound discharge and redness with severe pain aroundthe incision, contacted her orthopedic surgeon who recommended her coming to ER, she was evaluated by orthopedic surgery and planning on surgery on Sunday. Pre-op evaluation: Patient has revised cardiac risk index score 0 and should be at minor risk for surgery with cardiac complications. Surgical wound culture was sent, follow results Wide spectrum antibiotics coverage was started with vancomycin and Zosyn Consult ID pain control History of PE/DVT: Holding Eliquis for anticipated surgery on Sunday COPD/asthma: Not wheezing, continue Pulmicort, Dulera, albuterol as needed Peripheral neuropathy: Amitriptyline and gabapentin GERD: Omeprazole -DVT prophylaxis: [x] Lovenox [] Heparin [x] SCDs [x] Encourage ambulation [] Already on Anticoagulation -see below for additional orders, further recommendations to follow Orders Placed This Encounter Procedures Blood culture Blood culture Culture, Aerobic Bacteria with Gram Stain XR knee 1 or 2 views left XR femur left 2+ views XR shoulder 2+ views left CBC auto differential Basic metabolic panel Lactic acid, sepsis, with reflex if elevated C-reactive protein Sedimentation rate, automated Vancomycin, random CBC auto differential Basic Metabolic Panel w/ Mg Reflex Protime-INR Type and Screen Procalcitonin Test Adult diet Regular NPO diet NPO except: Sips of Water with Meds Vital Signs Neurovascular checks Weight-bearing restrictions Elevate extremity (specify) Activity Up With Assistance Vital Signs Notify physician per STANDARD parameters Notify patient's primary care provider of admission No Anticoagulants Full code vancomycin IV - consult pharmacy to dose Inpatient consult to Infectious Diseases vancomycin IV - consult pharmacy to dose OT eval and treat PT eval and treat Initiate Oxygen Therapy Protocol Home BiPAP or CPAP Insert peripheral IV Admit to inpatient Code status: Full Code Please forward a copy of this H&P to the patient's PCP. Thank you. Electronically signed by Macrina Schrader MD at 2:55 AM documented in this [facility]03-05-2023 Emergency department Note* Indigo Felix RN - 12/03/2022 11:04 PM EST Med rec completed with pt. Pt LLE elevated on a pillow and chux changed for pt comfort. Pt resting,no needs at this time. Updated on plan of care. Bed low and locked, rails up x2, call light in reach, belongings in reach. VSS, NAD, respirations even and non labored Indigo Felix RN 12/03/22 [id number]* Indigo Felix RN - 12/03/2022 10:25 PM EST Answered pt call light. Pt reports she has a LIZAMA and requesting some coffee. Pt provided with black coffee. Pt aware she is NPO at midnight. Lights turned off for comfort. Bed low and locked, rails upx2, call light in reach. VSS. NAD. Respirations even and non labored. No further needs at this time. Belongings in reach on bedside table Indigo Felix RN 12/03/223 [facility]03-05-2023 Emergency department Note* Albaro Matta RN - 12/03/2022 9:54 PM EST Answered patient's call light to assist primary RN. Patient provided a pillow, rosemary simin with ice,and pain medication as requested, approved, and ordered. Following transaction, patient declining further needs, with call light in reach. Primary RN notified. Albaro Matta RN 12/03/22 4474 [facility]03-05-2023 Consult note* Rusty Mercado MD - 12/03/2022 8:24 PM EST Images from the original note were not included. Ortho Consult Patient: Siobhan Haas Date of : 1960 Acct: [id number] PCP: Oj Maddox Date of Admission: 12/03/2022 Date of Service: Pt seen/examined on 12/03/2022 Chief Complaint: Left AKA wound pain History Of Present Illness: This is a 62 y.o. female s/p AKA and several rpt I&Ds most recentlyon 11/21/22. Upon discharge, patient had a PICC and was sent out w/ IV abx. She reports she finishedher course of IV abx on and the PICC was removed on Sunday. Daughter states yesterday, she started noticing erythema surrounding the prior surgical site. She also stated she saturated several ABD pads w/ serosanguinous, olivas colored fluid. This morning, the pain increased substantially and the erythema began increasing along her incision site and thigh. She denies fever, chills, or SOB. Also complaining of acute on chronic left shoulder pain. Has been able to use it with full range ofmotion, but states it has been sore prior to the onset of her infections. Patient has had a prior hx of PEs and had a superficial venous thrombosis during her last admission. Patient is known to Dr. Mercado. Patient ambulation status: wheelchair bound Antiplatelets/Anticoagulation includes: Eliquis Hx from chart and/or Pt. 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 ([facility]) 07/27/2020 Asthma Cellulitis Constipation Depression Fibromyalgia GERD (gastroesophageal reflux disease) Hx of right BKA ([facility]) ([facility]) Hypertension Morbidly obese ([facility]) ([facility]) 02/03/2019 BMI 50.52 On home O2 FAY treated with BiPAP Osteoarthritis Osteomyelitis of right foot ([facility]) SCHEDULED FOR THE SURGERY ON 02/11/2019 Seasonal [...] Right 02/11/2019 FOOT SURGERY Right 2019 IN [place] FOOT SURGERY Right 04/08/2019 I&D right foot with antibiotic spacer FOOT SURGERY Right 04/24/2019 I&D;, external fixator FOOT SURGERY Left 08/04/2021 peroneus longus tenolysis - Dr Gamino HYSTERECTOMY 1997 INCISION AND DRAINAGE OF WOUND Left 11/21/2022 LLE INCONTINENCE SURGERY 11/15/2015 synthetic mid urethral sling,cystoscopy [...] Right 05/06/2019 Right Below Knee Amputation (CPT 66772), #2 Excisional debridement right iliac crest (wound 7 cm length, 3 cm width, 7 cm depth) TONSILLECTOMY (HISTORICAL) TOTAL KNEE ARTHROPLASTY Left 2012 ARTHROSCOPY FIRST AND KNEE REPLACED WISDOM TOOTH EXTRACTION WOUND DEBRIDEMENT Left 10/28/2021 irrigation and debridment LLE Home Medications: Prior to Admission medications Medication Sig Start Date End Date Taking? Authorizing Provider acetaminophen (Tylenol) 500 MG tablet Take 2 tablets (1,000 mg) by mouth in the morning and 2 tablets (1,000 mg) at noon and 2 tablets (1,000 mg) before bedtime. Do all this for 10 days. 11/27/22 12/07/22 Lulú Zhao MD albuterol (2.5 MG/3ML) 0.083% nebulizer solution 2.5 mg. 03/23/22 Historical Provider, albuterol 108 (90 Base) MCG/ACT inhaler INHALE 2 PUFFS FOUR TIMES DAILY NEEDED FOR WHEEZING 03/23/22 Historical Provider, amitriptyline (Elavil) 100 MG tablet 08/09/22 Historical Provider, apixaban (Eliquis) 5 MG tablet Take 1 tablet (5 mg) by mouth 2 times daily. 11/27/22 Lulú Zhao MD budesonide (Pulmicort) 0.25 MG/2ML nebulizer solution 12/23/21 Historical Provider, budesonide-formoterol (Symbicort) 160-4.5 MCG/ACT inhaler Inhale 2 puffs in the morning and 2 puffsin the evening. Historical Provider, cholecalciferol (Vitamin D-3) 1.25 MG (92045 UT) capsule Take by mouth 1 (one) time per week. 03/23/22 Historical Provider, citalopram (CeleXA) 40 MG tablet Take 40 mg by mouth in the morning. 03/23/22 Historical Provider, ferrous sulfate 325 (65 Fe) MG tablet Take 1 tablet (325 mg) by mouth every other day. Do not startbefore November 28, 2022. 11/28/22 11/28/23 Lulú Zhao MD fluticasone (Flonase) 50 MCG/ACT nasal spray 1 spray. Historical Provider, gabapentin (Neurontin) 300 MG capsule Take 1 capsule (300 mg) by mouth Nightly. 11/02/22 12/02/22 Vinh Collins, Lidocaine 4 % patch Apply 1 patch topically daily. Do not start before November 03, 2022. 11/03/22 Vinh Collins, DO LORazepam (Ativan) 0.5 MG tablet Take 0.5 mg by mouth. Take 1-2 tablets every 8 hours as needed foranxiety Historical Provider, meropenem (Merrem) 1 g injection Infuse 2 g into a venous catheter in the morning and 2 g at noon and 2 g before bedtime. Do all this for 3 days. 11/27/22 11/30/22 Lulú Zhao MD methocarbamol (Robaxin) 750 MG tablet Take 1 tablet (750 mg) by mouth in the morning and 1 tablet (750 mg) at noon and 1 tablet (750 mg) before bedtime. Do all this for 10 days. 11/27/22 12/07/22 Lulú Zhao MD omeprazole (PriLOSEC) [address] capsule Take 1 capsule by mouth in the morning. 07/12/15 Historical Provider, oxyCODONE (Roxicodone) 10 MG immediate release tablet Take 1 tablet (10 mg) by mouth every 4 hours as needed for moderate pain (4-6) for up to 5 days. 11/27/22 12/02/22 Lulú Zhao MD polyethylene glycol, PEG, 3350 (Miralax) 17 g packet Take 17 g by mouth daily for 3 days. Do not start before November 28, 2022. 11/28/22 12/01/22 Lulú Zhao MD senna-docusate sodium (Senokot-S) 8.6-50 MG tablet Take 2 tablets by mouth Nightly. 11/27/22 11/27/23Lulú Zhao MD tiotropium (Spiriva) [address] 18 mcg into inhaler and inhale in the morning.Historical Provider, acetaminophen (Tylenol) 325 MG tablet Take 2 tablets (650 mg) by mouth every 4 hours for 10 days. 11/02/22 11/27/22 Vinh Collins DO cyclobenzaprine (Flexeril) 10 MG tablet Take 10 mg by mouth Nightly. 07/19/15 11/27/22 Historical Provider, Eliquis 5 MG tablet take 2 tablets by mouth TONIGHT, THEN 2 TABLETS TWICE A DAY FOR 5... (REFER TO PRESCRIPTION NOTES). 09/05/22 11/27/22 Historical Provider, MEROPENEM IV Infuse 2 g into a venous catheter in the morning and 2 g at noon and 2 g before bedtime. 11/22/22 11/27/22 Historical Provider, oxyCODONE (Roxicodone) 5 MG immediate release tablet Take 1 tablet (5 mg) by mouth every 4 hours asneeded for moderate pain (4-6) for up to 5 days. 11/02/22 11/27/22 Vinh Collins DO Current Hospital Medications: Current Facility-Administered Medications: clindamycin in D5W (Cleocin) IVPB 600 mg, 600 mg, IntraVENous, Once, Kevna Parekh MD piperacillin-tazobactam (Zosyn) IVPB 3,375 mg, 3,375 mg, IntraVENous, Once, Rigo Lr MD, Last Rate: 100 mL/hr at 12/03/222021, 3,375 mg at 12/03/222021 vancomycin (Vancocin) 1,500 mg in dextrose 5 % 250 mL IVPB, 1,500 mg, IntraVENous, q12h, Kevan Parekh MD Current Outpatient Medications: acetaminophen (Tylenol) 500 MG tablet, Take 2 tablets (1,000 mg) by mouth in the morning and 2 tablets (1,000 mg) at noon and 2 tablets (1,000 mg) before bedtime. Do all this for 10 days., Disp: 30 tablet, Rfl: 0 albuterol (2.5 MG/3ML) 0.083% nebulizer solution, 2.5 mg., Disp: , Rfl: albuterol 108 (90 Base) MCG/ACT inhaler, INHALE 2 PUFFS FOUR TIMES DAILY NEEDED FOR WHEEZING, Disp: , Rfl: amitriptyline (Elavil) 100 MG tablet, , Disp: , Rfl: apixaban (Eliquis) 5 MG tablet, Take 1 tablet (5 mg) by mouth 2 times daily., Disp: 60 tablet, Rfl:0 budesonide (Pulmicort) 0.25 MG/2ML nebulizer solution, , Disp: , Rfl: budesonide-formoterol (Symbicort) 160-4.5 MCG/ACT inhaler, Inhale 2 puffs in the morning and 2 puffs in the evening., Disp: , Rfl: cholecalciferol (Vitamin D-3) 1.25 MG (69307 UT) capsule, Take by mouth 1 (one) time per week., Disp: , Rfl: citalopram (CeleXA) 40 MG tablet, Take 40 mg by mouth in the morning., Disp: , Rfl: ferrous sulfate 325 (65 Fe) MG tablet, Take 1 tablet (325 mg) by mouth every other day. Do not start before November 28, 2022., Disp: 15 tablet, Rfl: 11 fluticasone (Flonase) 50 MCG/ACT nasal spray, 1 spray., Disp: , Rfl: gabapentin (Neurontin) 300 MG capsule, Take 1 capsule (300 mg) by mouth Nightly., Disp: 30 capsule,Rfl: 0 Lidocaine 4 % patch, Apply 1 patch topically daily. Do not start before November 03, 2022., Disp: , Rfl: LORazepam (Ativan) 0.5 MG tablet, Take 0.5 mg by mouth. Take 1-2 tablets every 8 hours as needed for anxiety, Disp: , Rfl: methocarbamol (Robaxin) 750 MG tablet, Take 1 tablet (750 mg) by mouth in the morning and 1 tablet (750 mg) at noon and 1 tablet (750 mg) before bedtime. Do all this for 10 days., Disp: 30 tablet, Rfl: 0 omeprazole (PriLOSEC) [address] capsule, Take 1 capsule by mouth in the morning., Disp: , Rfl: senna-docusate sodium (Senokot-S) 8.6-50 MG tablet, Take 2 tablets by mouth Nightly., Disp: 60 tablet, Rfl: 11 tiotropium (Spiriva) 18 MCG inhalation capsule, Place 18 mcg into inhaler and inhale in the morning., Disp: , Rfl: Allergies: Amlodipine, Clonazepam, Ketamine, Lisinopril, and Vancomycin Social History: Social History Socioeconomic History Marital status: Spouse name: Not on file Number of children: Not on file Years of education: Not on file Highest education level: Not on file Occupational History Not on file Tobacco Use Smoking status: Former Packs/day: 0.15 Types: Cigarettes Quit date: 10/01/1981 Years since quittin.2 Smokeless tobacco: Never Substance and Sexual Activity Alcohol use: Yes Alcohol/week: 0.0 standard drinks Drug use: No Sexual activity: Not on file Other Topics Concern Not on file Social History Narrative Has been in rehab facility in [place] Lives alone, son close Friends help Social [...] reviewed and are negative PHYSICAL EXAM: BP 136/75 (BP Location: Left arm) Pulse 98 Temp 36.9 C (98.4 F) (Oral) Resp 20 Ht 1.702 m (5' 7) Wt (!) 154 kg (340 lb) SpO2 94% BMI 53.25 kg/m GENERAL APPEARANCE: Awake and oriented x3. No acute distress, except appropriate to injury. MOOD AND AFFECT: Calm appropriate to situation GAIT AND STATION: Patient is in bed and unable to ambulate secondary to known injury. REFLEXES: N/A COORDINATION and BALANCE: Patient is grossly coordinated unable to ambulate secondary to known injury. Lymphadenopathy: none on examination of the affected [...] except noted below -No TTP over clavicle, humerus, elbow, forearm, wrist, hand, or fingers -TTP: Shoulder -Radial pulse palpable -SILT in radial/median/ ulnar nerve distributions -Motor + AIN/PIN/ulnar nerve functions -No Lymphedema -Skin intact except where noted below -Painless pROM at elbow/wrist Pain w/ aROM of shoulder. TTP in the anterior and superior aspect of the shoulder. Able to forward flex shoulder to 120 degs w/ pain. No erythema, effusion, or warmth surrounding the shoulder joint. No short arc motion of shoulder. Right Lower Extremity: -No obvious pain or deformity to inspection with normal joint range of motion, stability, and muscle strength except noted below -No TTP over pelvis, hip, thigh, knee, tibia -TTP: Nontender throughout extremity -Pulse: Stump well-perfused -SILT in the superficial peroneal, deep peroneal, tibial, sural, saphenous nerve distributions -Motor function of quad -No Lymphedema -Skin intact except where noted below -Painless pROM at hip/knee Prior BKA incision well-healed with no concerns of infection. No erythema, swelling, purulent discharge. Left Lower Extremity: -No obvious pain or deformity to inspection with normal joint range of motion, stability, and muscle strength except noted below -No TTP over pelvis, hip -TTP: thigh -Pulse: Stump well-perfused -SILT to the distal portion of the stump -Motor function of hip flexors -Lymphedema -Skin intact except where noted below -Painless pROM at hip Erythema surrounding the entire prior AKA incision, Purulent, olivas discharge noted on the dressings.Sensation intact to distal portion of stump. Overall, stump appears more swollen compared to the contralateral thigh. Exquisitely TTP surrounding the surgical site. Compartments soft and compressible. No short arc pain w/ hip ROM. No palpable crepitus or subcutaneous emphysema. Labs: CBC: Lab Results Component Value Date WBC 4.6 12/03/2022 RBC 3.57 (L) 12/03/2022 BMP: Lab Results Component Value Date GLUCOSE 108 (H) 12/03/2022 CO2 29 12/03/2022 BUN 10 12/03/2022 CREATININE 0.59 12/03/2022 CALCIUM 8.7 12/03/2022 PT/INR: No results found for: PT, INR, APTT Type and Screen: No results found for: RH, LABANTI CRP: Lab Results Component Value Date CRP 23.2 (H) 12/03/2022 ESR: Lab Results Component Value Date SEDRATE 62 (H) 12/03/2022 HgBA1c: No components found for: LABA1C The above labs were reviewed by me. Radiology: The below images were independently reviewed and interpreted with pertinent findings noted below. XR: L hip, femur- Erosive changes at distal aspect of remaining femur with concerns for osteomyelitis. Soft tissue edema throughout distal aspect of stump. Degenerative changes in hip joint. No acute signs of fracture, deformities, or dislocations. L shoulder- Degenerative arthritis of the left shoulder. No evidence of osteomyelitis, cortical erosion. No fractures or dislocations. Radiology reports reviewed. ASSESSMENT: 62 y.o. female s/p recent AKA w/ SSI and overlying cellulitis PLAN: -D/w Dr. Vega -Plan for OR likely on Sunday for repeat I&D and wound vac placement of L AKA SSI. LA is 1.2, ESR is 62, CRP is 23.2, WBC is 4.6, glucose is 108. No acute concerning signs of necrotizing fascitis at this time. Will follow closely and begin Abx -Started Vancomycin, Zosyn and Clindamycin -NPO@MN on 12/05 -Infectious disease consult for Abx management -Clearance/optimization pending -Consented -Add pending -Labs pending -Bcx pending -Ortho will rpt a skin check at 2200 on 12/03 -NWB -Admit to medicine -Pain control and medical management per medicine -Please comment on clearance in case of OR, page ortho pgr [phone] with clearance status Elise Warren MD PGY-1 Orthopaedic Surgery 12/03/2022 8:50 PM Senior Resident Attestation: Pt seen and evaluated. I agree with previous assessment and plan. I performed an independent exam and agree with previous exam with any changes noted. 62 y.o. female withLLE AKA SSI s/p previous I+D with closure on 11/21/22. Patient had progressive increase in erythema,swelling and drainage from her LLE incision site starting yesterday prior to arrival. She has TTP about the surgical site, but denies any systemic symptoms of fever, respiratory distress, chills, night sweats. Based on laboratory values, LRINEC score currently 2. Will plan to monitor overnight withskin checks. Plan for next skin check at 2200 for repeat evaluation. I saw and evaluated the patient, participating in the jose portions of the service. I reviewed the resident s note. I agree with the resident s findings and plan. MD Kevan Rivera MD PGY-3 Orthopaedic Surgery 10:21 PM 12/03/2022 [facility]03-05-2023 Emergency department Note* Indigo Felix RN - 12/03/2022 8:20 PM EST Pt resting in bed, appear comfortable, belongings in reach. Pt on vitals monitor. Pt educated on the 3 antibiotics she was going to receive. All questions answered. VSS. NAD. Respirations even and non labored. Lights adjusted for pt comfort. No further needs at this time. Chux under LLE changed r/t drainage. Bed low and locked, rails up x2, call light in reach Indigo Felix RN 12/03/222117 [facility] [id number] Emergency department Note* Indigo Felix RN - 12/03/2022 7:56 PM EST At bedside to introduce myself. Pt resting in bed, on vitals monitor. Phlebotomy at bedside drawingblood cultures. VSS. NAD. Respirations even and no labored. No further needs at this time. Bed low and locked, rails up x2, call light in reach. Indigo Felix RN 12/03/222010 [facility] [id number] Consult note* Kristi Cross [facility] - 12/03/2022 7:52 PM EST Images from the original note were not included. Pharmacy Managed Vancomycin Dosing Service Consult Note Consult Date: 12/03/22 Patient Name: Siobhan Haas Allergies: Amlodipine, Clonazepam, Ketamine, Lisinopril, and Vancomycin Age: 62 y.o. Sex: female Ht: TBW: Weight: (!) 154 kg (340 lb) BMI: Body mass index is 53.24 kg/m . DW: 154 kg Lab Results Component Value Date CREATININE 0.59 12/03/2022 CREATININE 0.62 11/27/2022 BUN 10 12/03/2022 BUN 16 11/27/2022 WBC 4.6 12/03/2022 WBC 6.7 11/27/2022 Calculated CrCl: > 80 mL/min Consulted By: Dr. Kevan Parekh Random: with AM labs on 12/04/22 Infectious Diagnosis: SSTI (AUC Goal 400-600 mg/L*hr) Antimicrobials: Clindamycin x1 dose Pip/tazo x1 dose Vancomycin 12/03/22 Assessment/Plan: Start Vancomycin 1500 mg Q 12 hours based on patient age, weight, renal function, and infectious diagnosis (9.7 mg/kg), predicted AUC 537 mg/L*hr, 9% chance of toxicity Will assess random level on 12/04/22 and adjust as appropriate. Trend serum creatinine. Orders placed. Thank you for this consult. Please page/call with questions. Date: 12/03/22 Time: 7:52 PM Kristi Cross RPh (available on [employer]) [facility]03-05-2023 Emergency department Note* Eva Akhtar RN - 12/03/2022 5:02 PM EST Bed: 10 Expected date: Expected time: Means of arrival: Comments: EMS when clean Eva Akhtar RN 12/03/22 1712 [facility]03-05-2023 Physician Emergency department Note* Mariia Mar PA-C - 12/03/2022 5:02 PM EST Images from the original note were not included. Emergency Department Encounter [facility] EMERGENCY DEPT Patient: Siobhan Haas : 1960 Date of Evaluation: 12/03/2022 ED MELISSA Provider: Mariia Mar PA-C EDcare was supervised by Dr. Lr who independently examined and evaluated the patient. Please see their attestation note for further details. Chief Complaint: Chief Complaint Patient presents with Wound Check Per EMS, patient is from home, told by Dr. Mercado to come to ED for evaluation. Patient had a left AKA on 10/31/22. Patient states she noticed redness yesterday, today she had purulent drainage. She denies any fevers or chills. History of Present Illness: I wore appropriate PPE for entire encounter. Siobhan Haas is a 62 y.o. female with past medical history of hypertension, chronic obstructive lung disease, obesity who presented to the emergency department for evaluation of left lower extremity wound. Patient underwent [id number] amputation on 10/31/[address] Mercado and then subsequently underwent significant hospital stay for repeated washout due to infection. PICC line was placed prior to discharge and she was continued on IV meropenem. Last dose was on Sunday and PICC line was removed. Patient states that over the past 24 hours, pain has significantly increased in left lower extremity and she has also noticed that the wound site has become significantly red and now has begun draining. States that it feels warm to the touch. She denies any fevers or chills. Family memberin the room states that she has been communicating with Dr. Mercado regarding this, sending him pictures, and was instructed to come to the emergency department for admission and further treatment. Nursing notes were reviewed. Limitations to history: None Outside historians: family member Review of Systems: Positives and pertinent negatives as per HPI. All other systems were reviewed and are acutely negative except as noted. Past History: 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 ([facility]) 07/27/2020 Asthma Cellulitis Constipation Depression Fibromyalgia GERD (gastroesophageal reflux disease) Hx of right BKA ([facility]) ([facility]) Hypertension Morbidly obese ([facility]) ([facility]) 02/03/2019 BMI 50.52 On home O2 FAY treated with BiPAP Osteoarthritis Osteomyelitis of right foot ([facility]) SCHEDULED FOR THE SURGERY ON 02/11/2019 Seasonal [...] Right 02/11/2019 FOOT SURGERY Right 2019 IN [place] FOOT SURGERY Right 04/08/2019 I&D right foot with antibiotic spacer FOOT SURGERY Right 04/24/2019 I&D;, external fixator FOOT SURGERY Left 08/04/2021 peroneus longus tenolysis - Dr Gamino HYSTERECTOMY 1997 INCISION AND DRAINAGE OF WOUND Left 11/21/2022 LLE INCONTINENCE SURGERY 11/15/2015 synthetic mid urethral sling,cystoscopy [...] Right 05/06/2019 Right Below Knee Amputation (CPT 98395), #2 Excisional debridement right iliac crest (wound 7 cm length, 3 cm width, 7 cm depth) TONSILLECTOMY (HISTORICAL) TOTAL KNEE ARTHROPLASTY Left 2012 ARTHROSCOPY FIRST AND KNEE REPLACED WISDOM TOOTH EXTRACTION WOUND DEBRIDEMENT Left 10/28/2021 irrigation and debridment LLE Social History Socioeconomic History Marital status: Tobacco Use Smoking status: Former Packs/day: 0.15 Types: Cigarettes Quit date: 10/01/1981 Years since quittin.2 Smokeless tobacco: Never Substance and Sexual Activity Alcohol use: Yes Alcohol/week: 0.0 standard drinks Drug use: No Social History Narrative Has been in rehab facility in [place] Lives alone, son close Friends help Social Determinants of Health Intimate Partner Violence: Not At Risk Fear of Current or Ex-Partner: No Emotionally Abused: No Physically Abused: No Sexually Abused: No Medications/Allergies: Previous Medications ACETAMINOPHEN (TYLENOL) 500 MG TABLET Take 2 tablets (1,000 mg) by mouth in the morning and 2 tablets (1,000 mg) at noon and 2 tablets (1,000 mg) before bedtime. Do all this for 10 days. ALBUTEROL (2.5 MG/3ML) 0.083% NEBULIZER SOLUTION 2.5 mg. ALBUTEROL 108 (90 BASE) MCG/ACT INHALER INHALE 2 PUFFS FOUR TIMES DAILY NEEDED FOR WHEEZING AMITRIPTYLINE (ELAVIL) 100 MG TABLET APIXABAN (ELIQUIS) 5 MG TABLET Take 1 tablet (5 mg) by mouth 2 times daily. BUDESONIDE (PULMICORT) 0.25 MG/2ML NEBULIZER SOLUTION BUDESONIDE-FORMOTEROL (SYMBICORT) 160-4.5 MCG/ACT INHALER Inhale 2 puffs in the morning and 2 puffsin the evening. CHOLECALCIFEROL (VITAMIN D-3) 1.25 MG (99182 UT) CAPSULE Take by mouth 1 (one) time per week. CITALOPRAM (CELEXA) 40 MG TABLET Take 40 mg by mouth in the morning. FERROUS SULFATE 325 (65 FE) MG TABLET Take 1 tablet (325 mg) by mouth every other day. Do not startbefore November 28, 2022. FLUTICASONE (FLONASE) 50 MCG/ACT NASAL SPRAY 1 spray. GABAPENTIN (NEURONTIN) 300 MG CAPSULE Take 1 capsule (300 mg) by mouth Nightly. LIDOCAINE 4 % PATCH Apply 1 patch topically daily. Do not start before November 03, 2022. LORAZEPAM (ATIVAN) 0.5 MG TABLET Take 0.5 mg by mouth. Take 1-2 tablets every 8 hours as needed foranxiety METHOCARBAMOL (ROBAXIN) 750 MG TABLET Take 1 tablet (750 mg) by mouth in the morning and 1 tablet (750 mg) at noon and 1 tablet (750 mg) before bedtime. Do all this for 10 days. OMEPRAZOLE (PRILOSEC) [address] CAPSULE Take 1 capsule by mouth in the morning. SENNA-DOCUSATE SODIUM (SENOKOT-S) 8.6-50 MG TABLET Take 2 tablets by mouth Nightly. TIOTROPIUM (SPIRIVA) [address] 18 mcg into inhaler and inhale in the morning. Allergies Allergen Reactions Amlodipine Swelling Clonazepam Other reaction(s): Other (See Comments) made me sleep & cry Ketamine Lisinopril Swelling Vancomycin Rash Physical Exam: ED Triage Vitals [12/03/22 1713] Temp Heart Rate Resp BP 36.9 C (98.4 F) 96 16 (!) 152/78 SpO2 Temp Source Heart Rate Source Patient Position 96 % Oral Monitor -- BP Location FiO2 (%) -- -- Physical Exam Vitals and nursing note reviewed. Constitutional: General: She is not in acute distress. HENT: Head: Normocephalic and atraumatic. Mouth/Throat: Mouth: Mucous membranes are moist. Eyes: Extraocular Movements: Extraocular movements intact. Pupils: Pupils are equal, round, and reactive to light. Cardiovascular: Rate and Rhythm: Normal rate and regular rhythm. Pulses: Normal pulses. Pulmonary: Effort: Pulmonary effort is normal. Musculoskeletal: General: Swelling, tenderness and signs of injury present. Cervical back: Normal range of motion. Comments: Left AKA present. Patient able to flex and extend at the hips bilaterally without difficulty. Right BKA present as well. Skin: Capillary Refill: Capillary refill takes 2 to 3 seconds. Comments: RLE normal in color without erythema warmth or tenderness. LLE erythematous and warm uponpalpation. Wound edges with serous drainage. See photos for details. Neurological: General: No focal deficit present. Mental Status: She is alert and oriented to person, place, and time. Psychiatric: Mood and Affect: Mood normal. Behavior: Behavior normal. Screenings: Patients symptoms are consistent with sepsis, severe sepsis, or septic shock (If yes use .sepsiscoremeasure): no Diagnostics: Labs: Labs Reviewed CULTURE, AEROBIC BACTERIA WITH GRAM STAIN - Abnormal Result Value Culture Culture in progress Gram Stain Result (*) Value: Rare Polymorphonuclear leukocytes per low power field Gram Stain Result Rare Gram positive cocci (*) CBC WITH AUTO DIFFERENTIAL - Abnormal Auto WBC 4.6 RBC 3.57 (*) Hemoglobin 9.1 (*) Hematocrit 28.5 (*) MCV 79.6 (*) MCH 25.5 (*) MCHC 32.1 RDW 22.2 (*) Platelets 284 MPV 8.2 nRBC 0.0 Neutrophils Relative 49.2 Lymphocytes Relative 31.5 Monocytes Relative 13.3 (*) Eosinophils Relative 5.0 Basophils Relative 1.0 Neutrophils Absolute 2.2 Lymphocytes Absolute 1.4 Monocytes Absolute 0.6 Eosinophils Absolute 0.2 Basophils Absolute 0.0 BASIC METABOLIC PANEL - Abnormal SODIUM 139 POTASSIUM 4.1 CHLORIDE 104 CARBON DIOXIDE 29 UREA NITROGEN 10 CREATININE 0.59 GLUCOSE 108 (*) CALCIUM 8.7 ANION GAP 6 eGFR >90.0 C-REACTIVE PROTEIN - Abnormal C REACTIVE PROTEIN 23.2 (*) SEDIMENTATION RATE, AUTOMATED - Abnormal Sed Rate 62 (*) BLOOD CULTURE - Normal Blood Culture Blood culture incubation started Narrative: Blood Collection Site: Left Arm BLOOD CULTURE - Normal Blood Culture Blood culture incubation started Narrative: Blood Collection Site: Left Hand LACTIC ACID, SEPSIS WITH REFLEX IF ELEVATED - Normal LACTIC ACID 1.2 VANCOMYCIN, RANDOM Radiographs: XR shoulder 2+ views left Final Result 1. Degenerative changes. Report Dictated on Electronically Signed By: Ozzie Ambriz Electronically Signed Date/Time: 12/03/2022 9:22 PM EST XR femur left 2+ views Final Result No evidence of acute osseous abnormality. Report Dictated on Electronically Signed By: Santiago Malloy Electronically Signed Date/Time: 12/03/2022 6:47 PM EST XR knee 1 or 2 views left Final Result Cortical irregularity identified about the distal femoral stem concerning for osteomyelitis, clinical correlation is recommended.. Report Dictated on Electronically Signed By: Santiago Malloy Electronically Signed Date/Time: 12/03/2022 6:45 PM EST Procedures: N/A EKG: All EKG's are interpreted by the Emergency Department Physician in the absence of a management associate. Please see Epiphany for interpretation of EKG. Emergency Department Course and Medical Decision Making In brief, Siobhan Haas is a 62 y.o. female who presented to the emergency department for evaluation of left lower extremity wound s/p bewdp-wpb-vywt amputation. External records reviewed: Patient underwent left hxbgm-cgs-xjna amputation on 10/31/[address] Mercado. She was later readmitted for 17 days 11/10/22-11/27/22 due to surgical wound infection and underwent multiple irrigation and debridements. PICC line placed prior to discharge for continuation of IV antibiotics. Physical exam as above, patient nontoxic in appearance. Vital signs upon arrival with mild hypertension, otherwise wnl. Differential considerations included cellulitis, sepsis, osteomyelitis, necrotizing fasciitis. Patient given IV Dilaudid for pain control and started on IV antibiotics for broad-spectrum coverage of skin and soft tissue infection. Initial workup includes blood cultures, lactic acid, CBC, BMP, x-ray. Diagnostics reviewed: Lactic acid 1.2, no evidence of sepsis. No leukocytosis. Hemoglobin 9.1, improved from baseline. BMP without electrolyte derangements. Renal function is normal. XR left knee negative for acute fracture or dislocation, although does have some cortical irregularity concerning for osteomyelitis. Orthopedic surgery was consulted upon patient's arrival to the ED as she is well-known by their team. See their note for details. Recommended medical admission for OR tomorrow and further management as needed. Reevaluation: Patient is agreeable with plan for admission. Requested additional dose of pain medication which was provided following her home regimen. Plan: Discussed patient's history, current presentation and ED work-up thus far with [facility] who[facility] to medicine. Admitted in stable condition. MDM elements: Diagnostic tests considered but not performed: none Diagnostics interpreted by me: Xray(s) Discussions with other clinicians: Admitting team IMS and [facility] ortho surg Chronic conditions impacting care: Hypertension and obesity Social determinants of health affecting care: inability to ambulate . ED Medications managed: Medications vancomycin (Vancocin) 1,500 mg in dextrose 5 % 250 mL IVPB (1,500 mg IntraVENous New Bag 12/03/222122) piperacillin-tazobactam (Zosyn) IVPB 3.375 g (has no administration in time range) clindamycin in D5W (Cleocin) IVPB 600 mg (has no administration in time range) HYDROmorphone (Dilaudid) injection 1 mg (1 mg IntraVENous Given 12/03/221914) piperacillin-tazobactam (Zosyn) IVPB 3,375 mg (0 mg IntraVENous Stopped 12/03/222051) clindamycin in D5W (Cleocin) IVPB 600 mg (0 mg IntraVENous Stopped 12/03/222121) oxyCODONE-acetaminophen (Percocet) 5-325 MG per tablet 2 tablet (2 tablets Oral Given 12/03/222152) Prescription drugs considered: n/a patient admitted Critical Care: None Consults: IP CONSULT TO ORTHOPEDICS SURGERY FINAL IMPRESSION 1. Cellulitis of left lower extremity DISPOSITION: Admit 12/03/2022 10:24:27 PM PATIENT REFERRED TO: No follow-up provider specified. DISCHARGE MEDICATIONS: New Prescriptions No medications on file Mariia Mar PA-C [employer] Mariia Mar PA-C 12/03/22 8114 Associated attestation - Rigo Lr MD - 12/03/2022 11:23 PM EST Emergency Medicine Attending Please see previous note. Rigo Lr MD [facility] Phone: [phone] Physician Emergency department Note* Rigo Lr MD - 12/03/2022 5:02 PM EST Emergency Medicine Attending Note I personally saw the patient and performed a substantive portion of the visit including a history and physical examination. I discussed all aspects of the medical decision making with the retail security professional. This will serve as my supervisory note and shared attestation. History 62-year-old female presents complaining of pain redness and swelling of her left leg. She recently underwent an dmfkt-nhj-vtzs amputation of her left leg. She did well postoperatively until the last few days when she had redness swelling and drainage. She called her orthopedic surgeon who told her to come to the emergency department and be hospitalized with revision scheduled after the weekend. No other complaint. Exam Not febrile not toxic red swollen stump with al in place and drainage, mild fluctuance, no proximal streaking Medical Decision Making / ED Course No evidence of of systemic infection. Care coordination with orthopedic surgery service and the hospital service. Patient given analgesics with improvement of her symptoms. Orthopedics requested Vanc, Zosyn and Clinda - patient allergic to Vanc, the others ordered. Impression Postoperative infection Plan Hospitalization (Please note that portions of this note may have been completed with a voice recognition program. Efforts were made to edit the dictations but occasionally words are mis-transcribed.) MD Rigo Galan MD 12/03/22 1240 [employer] Phone: [phone]) 729-746303-01-2023 Telephone encounter Note* Telephone Encounter - Jocelyn Powell MA - 11/29/2022 8:45 AM EST Received and placed in folder for signature. [id number] Miscellaneous Notes* Telephone Encounter - Jocelyn Powell MA - 11/29/2022 8:45 AM EST Received and placed in folder for signature. * Telephone Encounter - Eva Antunez - 11/24/2022 12:55 PM EST Patient's son Deacon, in [place] office to drop off FMLA paperwork, he would like to sisal picker paperwork when completed. Will pay $15 when completed. [address] in Dr. Mercado mailbox. Thanks documented in this encounterSMercy Health [facility] Medical [id number] Miscellaneous Notes* Home Care - Micki Garcia RN - 11/27/2022 3:10 PM EST [facility] infusion nurse is able to accept referral for SN for IV infusion ONLY. The infusion nurse will not do any wound care or assessing of wound, no therapy can be offered. Spoke to TCC and pt.Pt is agreeable. States she doesn't feel PT/OT will be needed, she has been an amputee for a while and her dtr and son are EMT's and they will monitor the incision and can manage the prevena wound vac. [facility] notified agreeable for infusion company and their nurse. Pt is covered for infusion at 100% through [facility]. Infusion needs are set up. * Home Care - Micki Garcia RN - 11/27/2022 2:09 PM EST [facility] declined, no staffing. * Home Care - Micki Garcia RN - 11/27/2022 1:46 PM EST 17 agencies declined referral. Spoke to [facility], they are currently reviewing referral to see if they can accept and will call this PACC or respond in Care port. * Home Care - Micki Garcia RN - 11/27/2022 1:19 PM EST Per [facility] - coverage for home IV infusion is 100%. Still trying to find home care agency that can accept. Multiple agencies have declined d/t area, insurance or staffing issues. [facility] checking to see if they have availability for theirinfusion nurse, however they do not provide any services besides managing IV infusion/PICC dressingchanges and labs. Continue to search for agency. * Home Care - Micki Garcia RN - 11/27/2022 10:22 AM EST Per TCC, Pt wanting to go home, instead of SNF. Following up with [facility] to see if able to see 11/28/2022 for SOC. [facility] accept referral per Kierra at [facility]. Referral sent to [facility]. Pt will need afternoon IV infusion prior to discharge and home careagency will see pt on 11/28/2022. IV copat sent to infusion company. Will update TCC when Infusion and H/C is confirmed. [facility] unable to accept d/t staffing issues. Pt informed and referrals being sent in care port to find home care agency that can accept. TCC updated. * Care Coordination - Unknown Case Management - 11/27/2022 10:16 AM EST Patient Choice Patient Name: SIOBHAN HAAS Date of : 1960 All Providers Sent Referral Name: [facility] Address: [address] [place] [address] Name: [facility] Phone: [phone] Address: [address] [place] [address] Name: [facility] Phone: [phone] Address: [address] [place] [address] Name: [facility] [place] [facility] Off[facility]) Phone: [phone] Address: [address] [place] [address] Name: [facility] Phone: [phone] Address: [address] [place] [address] Name: [facility] Phone: [phone] Address: [address] [place] [address] Name: [facility] Address: [address] [facility] [address] [place] [address] Name: [facility] Phone: [phone] Address: [address] [place] [address] Name: [facility] Address: [address] [place] [address] Name: [facility] Phone: [phone] Address: [address] [place] [address] Name: [facility] Phone: [phone] Address: [address] [place] [address] Name: [facility] Address: [address] [place] [address] Name: [facility] Address: [address] [place] [address] [place] [address] Name: [facility] Address: [address] [place] [address] Name: [facility] Address: [address] [facility] [place] [address] Name: [facility]) Address: [address] [place] [address] Name: [facility] Address: [address] [place] [address], [address] [place] [address] Name: [facility] Address: [address] [place] [address] * Home Care - Micki Garcia RN - 11/27/2022 10:08 AM EST Start PACC Note Home Health Referral Educated patient on Home Care and services available. Patient offered choice of available HHC and agreeable to SN, PT, OT services with Home Care. Care Types: None Isolation Precautions: No active isolations Social Determinates of Health: Tobacco Use: Medium Risk Smoking Tobacco Use: Former Smokeless Tobacco Use: Never Passive Exposure: Not on file Social History Substance and Sexual Activity Alcohol Use Yes Alcohol/week: 0.0 standard drinks Social History Substance and Sexual Activity Drug Use No Does the patient have any financial resource strain? No Does the patient have any food insecurities? No Does the patient have any housing instabilities? No If any of the above is noted as yes - consider a DAY CARE PROVIDER evaluation once the patient returns home. START PATIENT REGISTRATION INFORMATION Order Information Order Signing Physician: Lulú Zhao MD Service Ordered RN ?: Yes Service Ordered PT ?: Yes Service Ordered OT ?: Yes Service Ordered ST ?: No Service Ordered DAY CARE PROVIDER?:No Service Ordered TIME CLOCK INSPECTOR?: No Following Physician: Oj Maddox Following Physician Overseeing Physician: Oj Maddox (Required for Residents only) Agreeable to Follow? Yes Date/Time of Call 11/27/22 10:08 AM, Spoke with: Jodee Care Coordination SOC Call from [facility] [place] Required?: Yes Same Day SOC?: No Primary Care Physician: Oj Maddox Primary Care Physician Primary Care Physician Address: [address] [place] [address] / [facility] [address] Visit Instructions: N/A Service Discharge Location Type: Home with Home Health Care Service Facility Name: N/A Service Floor Facility: N/A Service Room No: N/A Demographics Patient Last Name: Waldo Patient First Name: Siobhan Language/Communication Barrier: NA Service Address: [address] [facility] Service City: [facility] ST: [place] Service ZIP: [address] Service Home Phone: There are no phone numbers on file. Other phone numbers: Telephone Information: Emergency Contact: Extended Emergency Contact Information Primary Emergency Contact: Luz Marina Mueller Relation: Child Secondary Emergency Contact: Dominga Purcell Relation: Sister Admission Information Admit Date: 11/10/2022 Patient status at discharge: Inpatient Caregiver Information Caregiver First Name: Luz Marina Caregiver Last Name: Ervin Caregiver Relationship to Patient dtr Caregiver Caregiver Notes: N/A HITECH [employer] List HIGHTECH: HI TECH - IV Orders: yes IV Method of Administration: IV Date and Time of Next Dose Due: 11/28/2022 10am Infusion Company: [facility] Infectious Disease Physician: Dr Cristian Maxwell Teachable Caregiver Teachable Caregiver First Name: Luz Marina Teachable Caregiver Last Name: Ervin Teachable Caregiver Relationship to Patient: child Teachable Caregiver Teachable Caregiver Notes: N/A Teachable Caregiver available for SOC visit?: Yes Teachable Caregiver agreeable to provide skilled HITECH care per physician's orders?: Yes END PATIENT REGISTRATION INFORMATION Pt Home Health goal home Admitting Diagnosis Surgical wound infection [T81.49XA] COVID Status 1. Do you have any upper respiratory symptoms (cough, SOB, Fever)? No 2. Have you been exposed to anyone with COVID-19 Virus? No Answer only if pending or positive for COVID-19? 1. Agreeable to wear PPE at each visit? NA 2. Is the hospital supplying them with PPE upon Discharge? N/A Start PACC Summary General Report/ Additional Comments Home with Prevena wound vac to L AKA surgical site - please monitor and educate on care Per discussion between my colleague Dr Bond and with Dr. Aldridge, since she is a hard stick andunsure if the superficial thrombosis is PICC related, plans to continue to use PICC and monitor superficial thrombosis repeat ultrasound yesterday - no propagation. Repeat ultrasound tomorrow Eliquis has been restarted on 2/23, monitor hemoglobin, stable Discharge Date: 11/28/2022 Referral Source-PACC: (Hospital/Unit): [facility] / [id number]/[id number] A End PACC Note * Care Coordination - Janessa Nava RN - 11/27/2022 10:02 AM EST Pt has decided that she no longer wants placement and would like to go home with home care. Therapycontinues to recommend facility therapy but pt states that she will have assistance at home from family members. HCL Micki made aware and setting pt up for home iv abx. ID orders are completed. Pt will be going home with prevena wound vac. It is in her room. Message sent to Dr. Zhao for dischargeorder. * Care Coordination - Janessa Nava RN - 11/24/2022 2:00 PM EST Addendum to earlier note: Notified via [facility] that [facility] cannot accept pt. Pt was provided with another list. Will ask weekend tcc to follow up for choices. * Care Coordination - Janessa Nava RN - 11/24/2022 1:17 PM EST Medical Plan: Pt remains on H6 3 days post op last LLE I&D. Pt continuing PT/OT and iv abx. Picc line was placed. Continuing meropenem at this point. [facility]. They do not an available bed at this time. Pt made aware and referral was placed to [facility] per pt request. Discharge Plan: Discharge to [facility]. Barriers: SNF acceptance and insurance authorization. * Care Coordination - Janessa Nava RN - 11/23/2022 3:08 PM EST [facility] via [facility]. I was informed that they had not received referral. Message sent to [facility] to place referral again. Facility states they will let us know in am. Tcc spoke with pt to update. If [facility] cannot take pt, we will place referral to [facility]. * Care Coordination - Belia Lo - 11/22/2022 12:18 PM EST Referral placed to [facility] via [facility]port per TCC request. Await review and response regarding ability to accept. TCC notified. * Care Coordination - Janessa Nava RN - 11/22/2022 12:08 PM EST Pt remains on H6 one day post op fourth trip to OR for I&D of LLE with wound vac application. Blood cultures to be drawn today and ID has been consulted. Pt may need picc line for long distance operator iv abx. She is receiving iv meropenem. Pt asked to see tcc again today. She states that [facility] or [facility]. Sent Message to [facility] to place referrals. Therapy evals continue. Await rehab response and pt will require insurance authorization. Electronicallysigned by Janessa Nava RN on 11/22/2022 at 12:15 PM * Care Coordination - Belia Lo - 11/22/2022 11:52 AM EST [facility] request. Await review and response regarding ability to accept. TCC notified. * Perioperative Nursing Note - Riddhi Marin RN - 11/21/2022 7:37 PM EST Report to Jon RN H6, update to daughter Luz Marina will be returning to [phone] * Op Note - Rusty Mercado MD - 11/21/2022 5:06 PM EST Pre-operative Diagnosis: Left AKA hematoma Post-operative Diagnosis: Same Procedure: #1 Incision and drainage abscess left above-knee amputation (thigh) (Wound dimensions: Length medial to lateral: 25 cm, Width anterior to posterior: 3 cm, Depth: 3 cm #2 Delayed closure left AKA Components used: Stimulan cement Anesthesia: general Surgeon: Jess Assistants: Anup Estimated Blood Loss: 100ml Complications: None Medications: Siobhan was on preoperative schedule antibiotics, 3.6 g Tobramycin was mixed with Stimulan cement and placed in the wound Operative findings: The left above-knee amputation wound site appeared to have good granulation tissue throughout the wound. No gross purulence was found. After I&D stimulan cement beads that contained 3.6 g of tobramycin was placed in the AKA wound and the AKA was then closed. History of present illness: Siobhan is a 62 y.o. female with a history significant for having undergone a left above-knee amputation secondary infection who developed a large hematoma at the amputation site and was taken for initial incision and drainage on 11/11/2022, 11/14/2022 and 11/17/2022, . The plan was to return to the operating room for repeat incision and drainage and possible closure. Despite the known risks of the above mentioned surgery, which were discussed with Siobhan, she consented to the procedure. Operative report: I met with Siobhan in [...] of pain or dysfunction, wound healing complications, and late or chronic pain as a result of the surgical intervention. In addition potentially life threatening complications that can occur at the time of surgery and after surgery were discussed including but not limited to deep vein thrombosis, pulmonary embolism, myocardial infarction, stroke and . I initialed her Left lower extremity and signed her consent form. A general anesthetic was then given by the anesthesia staff and an endotracheal tube was placed by the anesthesia staff. At all times during the operative procedure the patient's head neck and airwaywere protected by the anesthesia staff. A tourniquet was not utilized for the case. Siobhan was then placed in the prone position on a Vishnu table. Care was taken to identify and pad all bony prominences. This allowed for better visualization of the posterior lateral portion of the amputation site which was not as well visualized on the previous surgical procedures. The left lower extremity was then prepped and draped in the usual orthopedic sterile fashion. The previously placed VAC dressing had been removed prior to prepping and draping. Incision and drainage of the entire above-knee amputation wound was performed. The muscle layer was found to be intact. Nocommunications with the underlying femur were found. Any necrotic appearing skin, subcutaneous tissue, muscle, fascia was excised. The entire wound was then thoroughly irrigated with copious amounts of sterile saline and then irrigated with Xperience surgical irrigant. Stimulan cement was then prepared on the back table and mixed with 3.6 g tobramycin and was placed in a bead mold. The cement was allowed to fully cure and once cured the beads were placed within thewound site. The skin was then closed utilizing 2-0 nylon . An incisional wound VAC was then placed. Siobhan then was transferred back to her hospital bed. Siobhan was then awakened from her anesthetic and taken to the recovery room in stable medical condition. Post-operative plan: Additional Surgical Intervention: No plans for further surgical intervention Weight Bearing Instructions: Siobhan will be nonweight bearing on the left lower extremity. DVT Prophylaxis: Can start/restart chemoprophylaxis from my standpoint Antibiotics: Antibiotic managment per Infectious Disease Consults: No consults needed at this time Elevation: Elevation of the operative extremity is not needed but can be performed if patient is uncomfortable Dressings: Leave VAC in place will remove in office at post op visit * Brief Op Note - Maximino Aceves JD, MD - 11/21/2022 5:06 PM EST Date: 11/21/2022 Location: [facility] OR Name: Siobhan Haas, : 1960, Diagnosis Pre-op Diagnosis * Surgical wound infection [T81.49XA] Post-op Diagnosis * Surgical wound infection [T81.49XA] Procedures Repeat irrigation and debridement left lower extremity [address] - MO DEBRIDEMENT SUBCUTANEOUS TISSUE 20 SQ CM/< Surgeons * Rusty Mercado - Primary Procedure Summary Anesthesia: General ASA: IV Estimated Blood Loss: 100cc Drains: * None in log * Staff: Fleet Technician: Susy Wells Physician Clothes Drier Assembler: CARMELA Ramos Relief Fleet Technician: Jenae Abebe RN Relief Scrub: Narciso Rosado MA Findings: see detailed op report Complications: None; patient tolerated the procedure well. Specimens Collected: No specimens collected during this procedure. Blood Products: None Prophylactic Antibiotics: Pre-operative antibiotics were not given because the patient is on continuous antibiotics for documented preoperative infection. Plan: NWB LLE Up with assistance Elevate LLE Antibiotics per ID Monitor Hgb Dressing: prevena. Please attach to cannister at dc Skin checks DVT ppx: ASA 81mg daily Pain, medical management per primary F/u with Dr. Mercado in 2 weeks Ok for dc from ortho perspective when abx arranged * Home Care - Micki Garcia RN - 11/21/2022 2:34 PM EST Checking benefits for possible home IV infusion per ID note, possible Meropenem 1gm IV daily times 2 weeks. * Care Plan - Payton Zarate RN - 11/21/2022 7:54 AM EST Problem: Knowledge Deficit Goal: Patient/family/caregiver demonstrates understanding of disease process, treatment plan, medications, and discharge instructions Outcome: Progressing Problem: Potential for Compromised Skin Integrity Goal: Skin Integrity is Maintained or Improved Outcome: Progressing Goal: Nutritional status is improving Outcome: Progressing * Home Care - Micki Garcia RN - 11/20/2022 1:50 PM EST Start PACC Note Home Health Referral Educated patient on Home Care and services available. Patient offered choice of available HHC and agreeable to SN, PT, OTservices with [facility]. Care Types: Isolation Precautions: No active isolations Social Determinates of Health: Tobacco Use: Medium Risk Smoking Tobacco Use: Former Smokeless Tobacco Use: Never Passive Exposure: Not on file Social History Substance and Sexual Activity Alcohol Use Yes Alcohol/week: 0.0 standard drinks Social History Substance and Sexual Activity Drug Use No Does the patient have any financial resource strain? No Does the patient have any food insecurities? No Does the patient have any housing instabilities? No If any of the above is noted as yes - consider a DAY CARE PROVIDER evaluation once the patient returns home. START PATIENT REGISTRATION INFORMATION Order Information Order Signing Physician: Johnathon Chowdhury MD Service Ordered RN ?: Yes Service Ordered PT ?: Yes Service Ordered OT ?: Yes Service Ordered ST ?: No Service Ordered DAY CARE PROVIDER?:No Service Ordered TIME CLOCK INSPECTOR?: No Following Physician: Oj Maddox Following Physician Overseeing Physician: Oj Maddox (Required for Residents only) Agreeable to Follow? Yes Date/Time of Call 11/20/22 1:50 PM, Spoke with: Jodee Care Coordination SOC Call from [facility] Required?: Yes Same Day SOC?: No Primary Care Physician: Oj Maddox Primary Care Physician Primary Care Physician Address: [address] [place] [address] / [facility] [address] Visit Instructions: N/A Service Discharge Location Type: Home with Home Health Care Service Facility Name: N/A Service Floor Facility: N/A Service Room No: N/A Demographics Patient Last Name: Waldo Patient First Name: Siobhan Language/Communication Barrier: N/A Service Address: [address] [facility] Service City: [facility] ST: [place] Service ZIP: [address] Service Other phone numbers: Telephone Information: Emergency Contact: Extended Emergency Contact Information Primary Emergency Contact: RaghavendramomoLuz Marina Relation: Child Secondary Emergency Contact: Dominga Purcell Relation: Sister Admission Information Admit Date: 11/10/2022 Patient status at discharge: Inpatient Caregiver Information Caregiver First Name: luz marina Caregiver Last Name: Ervin Caregiver Relationship to Patient attendant child activity Caregiver Notes: N/A Pt Home Health goal home Admitting Diagnosis Surgical wound infection [T81.49XA] COVID Status 1. Do you have any upper respiratory symptoms (cough, SOB, Fever)? No 2. Have you been exposed to anyone with COVID-19 Virus? No Answer only if pending or positive for COVID-19? 1. Agreeable to wear PPE at each visit? N/A 2. Is the hospital supplying them with PPE upon Discharge? N/A Start PACC Summary General Report/ Additional Comments Discharge Date: pendign Referral Source-PACC: (Hospital/Unit): [facility] / [id number]/[id number] A End PACC Note * Care Coordination - Janessa L. Brandy, RN - 11/20/2022 12:28 PM EST Medical Plan: Pt remains on H6 with plan for return to OR tomorrow for fourth I&D of LLE. Possible closure vswound vac. Pt asked to see me today. She states that she no longer wants to go to snf at discharge.She would like to go home with home care. Pt states her son lives with her and she also has family and friends who can assist with any needs. LAQUITA Sweet made aware. Tcc will continue to follow. Discharge Plan: Pt requesting home with home care at discharge. Barriers: Pt not medically ready for discharge. * Home Care - Micki Garcia RN - 11/20/2022 10:49 AM EST Digital Sales Director following case for Discharge Needs. * Care Plan - Payton Zarate RN - 11/20/2022 8:21 AM EST Problem: Knowledge Deficit Goal: Patient/family/caregiver demonstrates understanding of disease process, treatment plan, medications, and discharge instructions Outcome: Progressing Problem: Potential for Compromised Skin Integrity Goal: Skin Integrity is Maintained or Improved Outcome: Progressing * Care Plan - Ricky Bain RN - 11/20/2022 3:45 AM EST Problem: Knowledge Deficit Goal: Patient/family/caregiver demonstrates understanding of disease process, treatment plan, medications, and discharge instructions Outcome: Progressing Problem: Potential for Compromised Skin Integrity Goal: Skin Integrity is Maintained or Improved Outcome: Progressing Goal: Nutritional status is improving Outcome: Progressing Problem: Urinary Incontinence Goal: Perineal skin integrity is maintained or improved Outcome: Progressing * Care Plan - Ricky Bain RN - 11/19/2022 1:19 AM EST Problem: Knowledge Deficit Goal: Patient/family/caregiver demonstrates understanding of disease process, treatment plan, medications, and discharge instructions Outcome: Progressing Problem: Potential for Compromised Skin Integrity Goal: Skin Integrity is Maintained or Improved Outcome: Progressing Goal: Nutritional status is improving Outcome: Progressing Problem: Urinary Incontinence Goal: Perineal skin integrity is maintained or improved Outcome: Progressing * Care Coordination - Janessa Nava RN - 11/17/2022 11:57 AM EST Medical Plan: Pt is one day post op third trip to OR for LLE I&D with application of irrigating wound vac. Ptcontinues to receive iv ceftriaxone. Ortho planning to take pt back to OR on 11/21 for repeat LLE I&D with possible closure vs wound vac. Discharge Plan: Return to [facility]. Barriers: pt is not medically ready for discharge. * Care Coordination - Belia Lo - 11/17/2022 8:47 AM EST Updated Progress notes to [facility] via [facility] per [facility] request. Await review and response. TCC notified. * Op Note - Rusty Mercado MD - 11/16/2022 6:19 PM EST Pre-operative Diagnosis: Left AKA hematoma Post-operative Diagnosis: Same Procedure: #1 Incision and drainage abscess left above-knee amputation (thigh) (Wound dimensions: Length medial to lateral: 25 cm, Width anterior to posterior: 3 cm, Depth: 3 cm #2 Application wound VAC Veraflow, wound >50 sq cm left thigh Components used: VAC Veraflow Anesthesia: general Surgeon: Jess Assistants: Anup Estimated Blood Loss: 100ml Complications: None Medications: Siobhan was on preoperative schedule antibiotics Operative findings: The left above-knee amputation wound site appeared to have good granulation tissue throughout the wound. No gross purulence was found. The wound was much improved compared to the appearance of the wound on 11/14/2022. The VAC vera flow was placed. History of present illness: Siobhan is a 62 y.o. female with a history significant for having undergone a left above-knee amputation secondary infection who developed a large hematoma at the amputation site and was taken for initial incision and drainage on 11/11/2022 and 11/14/2022. The plan was to r eturn to the operating room for repeat incision and drainage and possible closure. Despite the known risks of the above mentioned surgery, which were discussed with Siobhan, she consented to the procedure. Operative report: I met with Siobhan in [...] of pain or dysfunction, wound healing complications, and late or chronic pain as a result of the surgical intervention. In addition potentially life threatening complications that can occur at the time of surgery and after surgery were discussed including but not limited to deep vein thrombosis, pulmonary embolism, myocardial infarction, stroke and . I initialed her Left lower extremity and signed her consent form. A general anesthetic was then given by the anesthesia staff and an endotracheal tube was placed by the anesthesia staff. At all times during the operative procedure the patient's head neck and airwaywere protected by the anesthesia staff. A tourniquet was not utilized for the case. Siobhan was then placed in the prone position on a Vishnu table. Care was taken to identify and pad all bony prominences. This allowed for better visualization of the posterior lateral portion of the amputation site which was not as well visualized on the previous surgical procedures. The left lower extremity was then prepped and draped in the usual orthopedic sterile fashion. The previously placed VAC dressing had been removed prior to prepping and draping. Incision and drainage of the entire above-knee amputation wound was performed. The muscle layer was found to be intact. Nocommunications with the underlying femur were found. Any necrotic appearing skin, subcutaneous tissue, muscle, fascia was excised. The entire wound was then thoroughly irrigated with copious amounts of sterile saline and then irrigated with Xperience surgical irrigant. At this point it was decided to place a VAC VeraFlow dressing within the wound. Hill VeraFLow sponge was utilized. The skin surrounding the wound was cleaned and dried and then Cavalon sponges were used to further prepare the skin and then the skin was covered with plastic dressing.. The various pieces of sponge that had been cut for the wound were placed within the wound. The skin was sutured invarious locations across the VAC sponge intentionally leaving gaps between sutures to more closely approximate the wound and to aid in keeping the sponge in place.Plastic dressing was then used to cover the sponges/wound. A [place] of plastic drape the size of a quarter was cut out exposing the under lying sponge material for tract pad placement. A tract pad was then placed over the exposed sponge and the tubing from the tract pad was attached to the VAC machine. The machine was started and a good seal with no leaks was present. The VeraFlow influx of fluid was then started and 40 cc of fluid filled the wound. The VAC machine was then set for 40 cc fluid soak for 10 minutes every 3 hours. No leakage was present. Siobhan then was transferred back to her hospital bed. Siobhan was then awakened from her anesthetic and taken to the recovery room in stable medical condition. Post-operative plan: Additional Surgical Intervention: Plan to return to OR on 11/21 for repeat I&D possible closure Weight Bearing Instructions: Siobhan will be nonweight bearing on the left lower extremity. DVT Prophylaxis: Can start/restart chemoprophylaxis from my standpoint Antibiotics: Antibiotic managment per Infectious Disease Consults: No consults needed at this time Elevation: Elevation of the operative extremity is not needed but can be performed if patient is uncomfortable Dressings: Leave VAC in place (DO NOT CHANGE) will change in OR Any questions please page Ortho pager (resident manager acquisition) or call my office at [phone] * Brief Op Note - John Hebert MD - 11/16/2022 6:19 PM EST Date: 11/10/2022 - 11/16/2022 Location: [facility] OR Name: Siobhan Haas, : 1960, Diagnosis Pre-op Diagnosis * Surgical wound infection [T81.49XA] Post-op Diagnosis * Surgical wound infection [T81.49XA] Procedures REPEAT IRRIGATION AND DEBRIDEMENT LEFT ABOVE KNEE AMPUTATION 62303 - MO INCISION & DRAINAGE LEG/ANKLE ABSCESS/HEMATOMA Surgeons * Rusty Mercado - Primary Procedure Summary Anesthesia: General ASA: III Estimated Blood Loss: 100 mLs Drains: * None in log * Staff: Fleet Technician: Kierra Prater RN Scrub Person: Sheila Woodruff RN Findings: see Op note Complications: None; patient tolerated the procedure well. Specimens Collected: No specimens collected during this procedure. Wound Class: Class II: Clean-Contaminated Blood Products: None Prophylactic Antibiotics: Pre-operative antibiotics were not given because the patient is on continuous antibiotics for documented preoperative infection. Plan: -RTOR for rpt LLE I&D, possible closure versus vac on Tuesday 11/21 -Consent P -Add P -NPO @ [place] 11/21 -Cx P -Maintain wound vac, monitor output; no need to change wound vacuum, as this will be removed intraoperatively -vac via set to 40 mL per soak -Multimodal pain control -NWB LLE -Elevate -IV ancef until return to OR, in process -Cleared -PT/OT -okay for diet -DVT ppx per primary, okay to start tmrw. Hold on 11/21 -Pain/medical management per primary -Ortho to follow. Please page on-call resident with questions/concerns * Care Coordination - CHRISTINE Rachel - 11/16/2022 1:02 PM EST Completed ambulance form placed on pt chart. * Care Coordination - Janessa Nava RN - 11/16/2022 7:27 AM EST Medical Plan: Pt remains on H6 with plan for return to OR today for repeat I&D of L AKA with wound vac application. She is NPO. Continues to receive iv ceftriaxone. Will have PT/OT evals s/p surgery. Discharge Plan: Pt is from the [facility] with plan for return at discharge. We will be initiating insurance auth when appropriate. Barriers: Pt is not medically ready for discharge. * Care Coordination - Janessa Nava RN - 11/15/2022 11:59 AM EST Medical Plan: Pt remains on H6 one day post op repeat I&D of L AKA with wound vac application. Pt is receiving ceftriaxone iv. Continues use of O2 3L nc; not on home O2. Plan to return to OR tomorrow for repeat I&D. Pt will be NPO after midnight tonight. Discharge Plan: Pt is from [facility] with plan for return at discharge. Barriers: Pt is not medically ready for discharge. * Care Coordination - Belia Lo - 11/15/2022 8:41 AM EST Updated progress notes to SNF- [facility] via [facility] per TCC request. Await review and response regarding ability to accept. TCC notified. * Care Plan - Cindi Potter RN - 11/15/2022 1:04 AM EST The patient is Moderately Stable - Low risk of patient condition declining or worsening The patient's goals for the shift include Pain control The clinical goals for the shift include Pain control * Op Note - Rusty Mercado MD - 11/14/2022 12:04 PM EST Pre-operative Diagnosis: Left AKA hematoma Post-operative Diagnosis: Same Procedure: #1 Incision and drainage abscess left above-knee amputation (thigh) (Wound dimensions: Length medial to lateral: 25 cm, Width anterior to posterior: 3 cm, Depth: 3 cm #2 Application wound VAC, wound >50 sq cm left thigh Components used: VAC Anesthesia: general Surgeon: Jess Assistants: Adolfo Wilder Estimated Blood Loss: 100ml Complications: None Medications: Siobhan was on preoperative schedule antibiotics Operative findings: The left above-knee amputation wound site was malodorous and it was decided to open the entire incision. The femur was found to be covered with muscle with no extension to bone being found. No abscess was found but large areas of hematoma formation were present. It was decided to close the amputation site over a VAC dressing and return for repeat incision and drainage in 48 hours. History of present illness: Siobhan is a 62 y.o. female with a history significant for having undergone a left above-knee amputation secondary infection who developed a large hematoma at the amputation site and was taken for initial incision and drainage on 11/11/2022. A VAC dressing then placed in a portion of the wound which had been open for drainage. The plan was to return to the operating room for repeat incision and drainage and possible closure. Despite the known risks of the above mentioned surgery, which were discussed with Siobhan, she consented to the procedure. Operative report: I met with Siobhan in [...] of pain or dysfunction, wound healing complications, and late or chronic pain as a result of the surgical intervention. In addition potentially life threatening complications that can occur at the time of surgery and after surgery were discussed including but not limited to deep vein thrombosis, pulmonary embolism, myocardial infarction, stroke and . I initialed her Left lower extremity and signed her consent form. Siobhan was then brought to the operating room and placed in the supine position on the Operating Room table. Care was taken to identify and pad all bony prominences. A general anesthetic was then given by the anesthesia staff and an endotracheal tube was placed by the anesthesia staff. At all times during the operative procedure the patient's head neck and airwaywere protected by the anesthesia staff. A tourniquet was not utilized for the case. The Left lower extremity was then prepped and draped in the usual orthopedic sterile fashion. A surgical timeout was then performed with the patient's identification, the procedure to be performed being reviewed with the consent form, verification that the patient had received preoperative antibiotics, and verification of the correct surgical side. Everyone in the operating room stopped what they were doing in order to participate in the timeout. This timeout was performed by myself, the circulating room nurse and the anesthesia staff. The patient's ASA was verified by the nurse machine printer and the anesthesia staff. Fire risk was assessed. When the VAC dressing was removed distinctive odor was noted which was felt to possibly represent infection. It was decided to open the entire amputation incision site. All remaining al from theincision site were removed and incision and drainage was performed incising the skin and subcutaneous tissue. Large amount of hematoma emanated from the remainder of the above-knee amputation. The muscle layer enveloping the femur was intact and no communication with the underlying femur was found.The muscle layer did appear healthy. The entire wound site was then thoroughly irrigated with copious amounts of sterile saline. Any active bleeding was controlled using Bovie cautery. At this point it was decided to place a VAC dressing within the wound. Black VAC sponge was utilized. The skin surrounding the wound was cleaned and dried and then Cavalon sponges were used to further prepare the skin and then the skin was covered with plastic dressing.. The piece of sponge that had been cut for the wound was placed within the wound. Plastic dressing was then used to cover the sponge/wound. A [place] of plastic drape the size of a quarter was cut out exposing the underlying sponge material for tract pad placement. A tract pad was then placed over the exposed sponge and the tubing from the tract pad was attached to the VAC machine. The machine was started and a good seal withno leaks was present. Siobhan was then awakened from her anesthetic, transferred to her hospital bed and taken to the recovery room in stable medical condition. Post-operative plan: Additional Surgical Intervention: Plan to return to OR on 11/16 Weight Bearing Instructions: Siobhan will be nonweight bearing on the left lower extremity. DVT Prophylaxis: Can start/restart chemoprophylaxis from my standpoint Antibiotics: Antibiotic managment per Infectious Disease Consults: No consults needed at this time Elevation: Elevation of the operative extremity is not needed but can be performed if patient is uncomfortable Dressings: Leave VAC in place (DO NOT CHANGE) will change in OR Any questions please page Ortho pager (resident manager acquisition) or call my office at [phone] * Brief Op Note - Maged Wilder MD - 11/14/2022 12:04 PM EST Date: 11/10/2022 - 11/14/2022 Location: [facility] OR Name: Siobhan Haas, : 1960, Diagnosis Pre-op Diagnosis * Surgical wound infection [T81.49XA] Post-op Diagnosis * Surgical wound infection [T81.49XA] Procedures [place] [address] - [place] INCISION & DRAINAGE LEG/ANKLE ABSCESS/HEMATOMA Surgeons * Rusty Mercado - Primary Adolfo Wilder Procedure Summary Anesthesia: General ASA: III Estimated Blood Loss: None Drains: * None in log * Staff: Fleet Technician: Ed Keith RN Physician Clothes Drier Assembler: CARMELA Ramos Relief Fleet Technician: Dorina Arauz RN Relief Scrub: Beatriz Rosario Scrub Person: Leobardo Staples MA Findings: old hematoma, foul odor Complications: None; patient tolerated the procedure well. Specimens Collected: No specimens collected during this procedure. Wound Class: Class III: Contaminated Blood Products: None Prophylactic Antibiotics: Procedure appropriate prophylactic antibiotic(s) given within 1 hour of surgical incision (two hours if receiving Vancomycin or flouroquinolone) * Care Coordination - Robi Trevino RN - 11/14/2022 10:38 AM EST To OR via bed daughter at bedside, valuables locked in cabinet. * Care Coordination - Janessa Nava RN - 11/14/2022 7:51 AM EST Medical Plan: Pt remains on H6 s/p LLE I&D with wound vac application on 11/11/22. Pt is NPO for plan to return to OR today for repeat I&D with closure. Pt is bilateral AKA. She is from the [facility]. Plan for therapy evals s/p surgery. Discharge Plan: Return to the [facility]. Pt will need new authorization for return. Auth to start after post-surgery therapy evals. Barriers: None at present. * Care Coordination - Belia Lo - 11/13/2022 1:02 PM EST Updated progress notes to [facility] via [facility] per [facility] request. Await review and response. TCC notified. * Care Coordination - Janessa Nava RN - 11/13/2022 12:50 PM EST Medical Plan: Pt remains on H6. She is receiving iv ancef. Ortho planning to return to OR tomorrow for repeat LLEI&D with application of wound vac. Pt is from the [facility]. Requested CLERICAL ADMINISTRATIVE ASSISTANT send updatednotes to facility. Discharge Plan: Pt to return to the [facility]. Barriers: Pt not medically ready for discharge. * Care Plan - Payton Zarate RN - 11/12/2022 12:01 PM EST Problem: Knowledge Deficit Goal: Patient/family/caregiver demonstrates understanding of disease process, treatment plan, medications, and discharge instructions Outcome: Progressing Problem: Potential for Compromised Skin Integrity Goal: Skin Integrity is Maintained or Improved Outcome: Progressing * Care Coordination - Riddhi Lainez RN - 11/12/2022 9:30 AM EST Care Managment Initial Assessment Date: 11/12/2022 Patient Name: Siobhan Haas : 1960 Patient Information Source of Information: Patient Cognition/Language: WFL - Within Functional Limits Permission given to speak with patient entry level account representative/caregiver as indicated: Confirmation of Payer with patient/family: Yes Payer Name: HUMANA MEDICARE ADVANTAGE/HUMANA MEDICARE -- MEDICAID-- AETNA MEDICARE ADVANTAGE/AETNA MEDICARE : No Confirmation of Primary Care Physician: Confirmed PCP Name: Oj Maddox Seen in last 2 years?: Yes Primary Caregiver: Other (Comment) (facility staff) If assistance needed, confirmed caregiver ready, willing and able to care for patient at discharge: Confirmed with: Living Arrangements Current Residence: Number of Floors Number of Entry Steps: Bed/Bath Levels: Facility: Nursing Facility Skilled Facility Name: [facility] Plan to Return: Yes Lives with: Support Systems: Children, Family members Activities of Daily Living Ambulation: Assistance Bathing/Dressing: Assistance Elimination/Continence/Toileting: Independent Feeding: Independent Who Assists with Activities of Daily Living: Instrumental Activities of Daily Living Prescription Coverage: Yes Pharmacy Used: facility provides Medication Management: Transportation/Shopping: Assistance Provider Transportation Mode: Needs Assistance with Transportation at Discharge: Yes Meal Preparation: Assistance Provider Laundry/Cleaning: Assistance Provider Finances/Bill Paying: Independent Communication: Independent Types of Care Services/Equipment Utilized Care Services: (NA) Dialysis Type: NA Durable Medical Equipment: Wheelchair (standard or power), CPap, Transfer Bench Patient's Goal/Discharge Plan Patient expects to be discharged to: return to [facility] Discharge Planning Actions: Continue to follow, Intermediate Facility referral indicated [place] [facility] [facility] [place] [facility] discussed Patient's Choice Rights and [employer] and Collaborative Relationships Disclosed as Indicated for Post-Acute Care: Yes Interdisciplinary Team Engagement: PT/OT Social Work Referral for: Additional Information: Medical Plan: Admitted with L SSI s/p AKA on 10/31, s/p I&D + [place] on 11/11. PT/OT pending. TCC Assessment: Met with patient at the bedside, introduced self and role. Completed initial assessment. Discussed discharge planning needs. Confirmed that patient wishes to return to previous SNF [facility]. [facility] referral placed. No other needs identified at this time. Discharge Plan: Patient is independent and oriented, understands discharge plan and is ready, willing and able to assist as needed. Plan for discharge to [facility] once medically ready. Will need to arrange medical transportation. TCC will continue to follow for discharge needs. * Perioperative Nursing Note - Laurie Payne RN - 11/11/2022 9:24 AM EST Pt to floor with transport * Perioperative Nursing Note - Laurie Payne RN - 11/11/2022 9:13 AM EST Report called to floor, transport initiated. NAD, resp non labored, alert and oriented. * Op Note - Rusty Mercado MD - 11/11/2022 7:29 AM EST Pre-operative Diagnosis: Left AKA hematoma Post-operative Diagnosis: Same Procedure: #1 Incision and drainage hematoma left above-knee amputation (thigh) (Wound dimensions: Length medial to lateral: 10 cm, Width anterior to posterior: 3 cm, Depth: 3 cm #2 Application wound VAC, wound <50 sq cm left thigh Components used: VAC Anesthesia: general Surgeon: Jess Assistants: Meño Estimated Blood Loss: 50ml Complications: None Specimens: A culture swab from the base of the wound was sent for analysis Medications: Ancef 3 g IV Operative findings: The Left above-knee amputation wound dehiscence was found to contain a large hematoma which was drained. No active infection was found. The muscle layer overlying the distal femurwas intact with no communication with the underlying bone. The muscle layer appeared healthy with no signs of necrosis. Some subcutaneous bleeding was noted but no deep active bleeding was seen. The e ntire wound was drained and an excisional debridement of any nonviable appearing subcutaneous tissue was performed. A VAC dressing was placed. Plan is to return to the operating room for repeat incision and drainage and closure on 11/14/2022. History of present illness: Siobhan is a 62 y.o. female with a history significant for having undergone a left above-knee amputation secondary infection. She presented to the office on 11/10/2022 withdrainage after a fall on the extremity. Based on her clinical exam I recommended admission to the [facility] and the above-mentioned surgical procedure. Despite the known risks of the above mentioned surgery, which were discussed with Siobhan, she consented to the procedure. Operative report: I met with Siobhan in [...] of pain or dysfunction, wound healing complications, and late or chronic pain as a result of the surgical intervention. In addition potentially life threatening complications that can occur at the time of surgery and after surgery were discussed including but not limited to deep vein thrombosis, pulmonary embolism, myocardial infarction, stroke and . I initialed her Left lower extremity and signed her consent form. Siobhan was then brought to the operating room and placed in the supine position on the Operating Room table. Care was taken to identify and pad all bony prominences. A general anesthetic was then given by the anesthesia staff and an endotracheal tube was placed by the anesthesia staff. At all times during the operative procedure the patient's head neck and airwaywere protected by the anesthesia staff. A tourniquet was not utilized for the case. The Left lower extremity was then prepped and draped in the usual orthopedic sterile fashion. A surgical timeout was then performed with the patient's identification, the procedure to be performed being reviewed with the consent form, verification that the patient had received preoperative antibiotics, and verification of the correct surgical side. Everyone in the operating room stopped what they were doing in order to participate in the timeout. This timeout was performed by myself, the circulating room nurse and the anesthesia staff. The patient's ASA was verified by the nurse machine printer and the anesthesia staff. Fire risk was assessed. A longitudinal incision was made overlying the the area of drainage from the central/lateral portion of the amputation site. Incision and drainage of the hematoma was performed. The entire zone of the hematoma bed was exposed. A combination of sharp excision utilizing a scalpel, rongeurs and curets were used to excise any nonviable appearing skin and subcutaneous tissue. Once an adequate debridement had been performed and I was comfortable that no additional debridement was necessary the wound was thoroughly irrigated with copious amounts of sterile saline. Any active bleeding was controlled using Bovie cautery. Cultures were obtained from the base of the hematoma. At this point it was decided to place a VAC dressing within the wound. Black VAC sponge was utilized. The skin surrounding the wound was cleaned and dried and then [place] sponges were used to further prepare the skin and then the skin was covered with plastic dressing.. The piece of sponge that had been cut for the wound was placed within the wound. Plastic dressing was then used to cover the sponge/wound. A [place] of plastic drape the size of a quarter was cut out exposing the underlying sponge material for tract pad placement. A tract pad was then placed over the exposed sponge and the tubing from the tract pad was attached to the VAC machine. The machine was started and a good seal withno leaks was present. Siobhan was then awakened from her anesthetic, transferred to her hospital bed and taken to the recovery room in stable medical condition. Post-operative plan: Additional Surgical Intervention: Plan to return to OR on 11/14 Weight Bearing Instructions: Siobhan will be nonweight bearing on the left lower extremity. DVT Prophylaxis: Can start/restart chemoprophylaxis from my standpoint Antibiotics: Antibiotic managment per Infectious Disease Consults: No consults needed at this time Elevation: Elevation of the operative extremity is not needed but can be performed if patient is uncomfortable Dressings: Leave VAC in place (DO NOT CHANGE) will change in OR Any questions please page Ortho pager (resident manager acquisition) or call my office at [phone] * Brief Op Note - Maged Wilder MD - 11/11/2022 7:29 AM EST Date: 11/11/2022 Location: [facility] OR Name: Siobhan Haas, : 1960, Diagnosis Pre-op Diagnosis * Surgical wound infection [T81.49XA] Post-op Diagnosis * Surgical wound infection [T81.49XA] Procedures Left Lower Extremity Irrigation and Debridement 95487 - MO DEBRIDEMENT BONE MUSCLE &/FASCIA 20 SQ CM/< Surgeons * Rusty Mercado - Primary Meño Procedure Summary Anesthesia: General ASA: III Estimated Blood Loss: Minimal Drains: * None in log * Specimens ID Source Type Tests Collected By Collected At Frozen? Priority Lab ID A Thigh, Left Tissue AEROBIC AND ANAEROBIC CULTURE WITH STAIN Rusty Mercado MD 11/11/22 0753 Routine [id number], [id number] Description: LEFT THIGH Staff: Fleet Technician: Juliet Pratt RN Scrub Person: Nida Daniel RN Findings: deep hematoma, did not appear infection Complications: None; patient tolerated the procedure well. Specimens Collected: Order Name Source Comment Collection Info Order Time AEROBIC AND ANAEROBIC CULTURE WITH STAIN Thigh, Left Pre-op diagnosis: Surgical wound infection [T81.49XA] Collected By: Rusty Mercado MD 11/11/2022 7:54 AM Wound Class: Class II: Clean-Contaminated Blood Products: None Prophylactic Antibiotics: Procedure appropriate prophylactic antibiotic(s) given within 1 hour of surgical incision (two hours if receiving Vancomycin or flouroquinolone) Plan: Return to OR for repeat I&D/closure Tuesday 11/[address] Mercado Maintain wound vac, monitor output Multimodal pain control NWB LLE Elevate IV ancef until return to OR PT/OT Ok for diet DVT ppx per primary, ok POD1 from ortho perspective Dispo planning Ortho to follow Keenan Wilder MD Orthopedic Surgery, PGY4 11/11/22 8:21 AM [phone] documented in this [facility]02-27-2023 History of Present illness Narrative* Joanna Mcguire RD - 11/27/2022 2:39 PM EST Nutrition Assessment Type and Reason for Visit: Reassess Nutrition Recommendations/Plan: Continue Regular diet. BG appearing stable based on random BG values. Add carb choices to diet order as appropriate. Continue Ensure HP(160 kcal and 16 g pro) BID or premier protein shakes 1-2/day(30-60 g pro/day) tosupport increased nutrient needs for wound healing. Recommend the oral supplements be continued 2/day at discharge. Obtain updated weight as able and continue to record % meal consumed. RD to follow weekly and assess overall nutrition status. Malnutrition Assessment: Malnutrition Status: At risk for malnutrition (Comment) (prolonged LOS with increased nutrient needs. PO intake documented as 75-100% at meals. unable to update weight and NFPE) Context: Acute Illness Findings of the 6 clinical characteristics of malnutrition: Energy Intake: Mild decrease in energy intake (Comment) (as noted, diet order changing to NPO for procedures. Regular today with good PO intake at meals.) Weight Loss: Unable to assess (unable to update weight today) Body Fat Loss: Unable to assess (UTO) Muscle Mass Loss: Unable to assess (UTO) Fluid Accumulation: Mild Extremities (LLE) Metal Buggy Operator Strength: Not Performed Nutrition Assessment: The pt is a 62 y/o female with a PMH of cellulitis, SOB, GERD, FAY, constipation, and HTN who was admitted on 11/10 for surgical wound infection (L AKA). She encountered superficial thrombosis of leftcephalic vein on 11/23 1 day after placement of PICC. PT recommending FBT, however pt wants to go home. Case management working on placement with home PT. Over the past two weeks she has been on a Regular 4-5 carb choices/meal and/or NPO around procedures. Last weight 162# on 11/17. Recent PO -609%. RD attempted to follow-up with the pt, however she was gone from room and down in vascularlab. unable to update bed scale weight. Will makes recommendations and continue to follow. Estimated Daily Nutrient Needs: Energy Requirements Based On: Kcal/kg Weight Used for Energy Requirements: [place] (25-30 kcal/kg) Weight for Energy Calculation (kg): 55.18 kg (adjusted for AKA) Total Energy Requirements (kcals/day): 1873-6452 Weight Used for Protein Requirements: [place] (1.2-1.4 g/kg) Weight in Kg Used for Protein Requirements: 55.18 kg (adjusted for AKA) Estimated Total Protein (g/day): 66-77 Estimated Daily Total Fluid (ml/day): per MD Nutrition Related Findings: +I/O. +1 LLE edema. Rudi 15. BG overall stable and H&H low. Wound VAC present Wound Type: Surgical Incision, Wound Vac (s/p several/repeat I&D with further intervention planned today) Current Nutrition Therapies: Adult diet Regular Current Oral Intake Average Meal Intake: 76-100% Average Supplements Intake: NPO (pt noted to prefer Premier protein drinks brought in from home) Anthropometric Measures: Height: 170.2 cm (5' 7.01) Current Body Weight: (357# was last weight documented by RD on 11/17) Admission Body Weight: 157 kg (346 lb 2 oz) (11/10 stated) Usual Body Weight: (369# on 10/17/22, 358# on 08/31/22, 210# on 05/16/22) % Weight Change (Calculated): 3.3 [place] Body Weight (lbs) (Calculated): 135 lbs [place] Body Weight (Kg) (Calculated): 61 kg % [place] Body Weight (Calculated): 264.7 % BMI (kg/m2) (Calculated): 56 Weight Adjustment For: Amputation % Weight Adjustment: 5.9 - BKA, 10.1 - AKA Total Adjusted Percentage (Calculated): 16 Adjusted [place] Body Weight (lbs) (Calculated): 113.4 lbs Adjusted [place] Body Weight (kg) (Calculated): 51.55 kg Adjusted BMI (kg/m2) (Calculated): 67.3 BMI Categories: Obese Class 3 (BMI 40.0 or greater) Nutrition Diagnosis: Increased nutrient needs related to increase demand for energy/nutrients as evidenced by wounds Nutrition Interventions: Nutrition Education/Counseling: No recommendation at this time Coordination of Nutrition Care: Continue to monitor while inpatient Plan of Care discussed with: N/A Goals: Previous Goal Met: Progressing toward Goal(s) Goals: Meet at least 75% of estimated needs, by next RD assessment, prior to discharge Nutrition Monitoring and Evaluation: Behavioral-Environmental Outcomes: None Identified Food/Nutrient Intake Outcomes: Food and Nutrient Intake, Supplement Intake Physical Signs/Symptoms Outcomes: Biochemical Data, Skin, Weight, Nutrition Focused Physical Findings, Fluid Status or Edema Discharge Planning: Too soon to determine, Continue Oral Nutrition Supplement Joanna Mcguire RD Contact: [employer] Chat * Kierra Enamorado, OT - 11/27/2022 10:40 AM EST Occupational Therapy Facility/Department: Room: [facility] Occupational Therapy Treatment NAME: Siobhan Haas : 1960 Date of Service: 11/27/2022 Discharge Recommendations: Facility based therapy (; however, if pt returns home, recommend 24 hour assist and [facility] OT.) Assessment Performance deficits / Impairments: Decreased balance, Decreased ADL status, Decreased endurance, Decreased high-level IADLs, Decreased strength, Decreased functional mobility Assessment: Pt requires min assist with bed mobility, and assist with ADL's and transfers. Pt states that she is going home this date. Pt would benefit from continued therapies to maximize potential.Recommend facility based therapies at discharge; however, if pt is returning home, then recommend 24 hour assist and C OT at discharge. Prognosis: Fair Decision Making: Medium Complexity REQUIRES OT FOLLOW-UP: Yes Patient Diagnosis(es): The primary encounter diagnosis was Surgical wound infection. Diagnoses of Lymphedema, Superficial venous thrombosis of left upper extremity, and Stump pain ([facility]) were also pertinent to this visit. 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 ([facility]) (07/27/2020), Asthma, Cellulitis, Constipation, Depression, Fibromyalgia, GERD (gastroesophageal reflux disease), right BKA([facility]) ([facility]), Hypertension, Morbidly obese ([facility]) ([facility]) (02/03/2019), On home O2, FAY treatedwith BiPAP, Osteoarthritis, Osteomyelitis of right foot ([facility]), Seasonal allergies, Shortness of breath, URSULA (stress [...] Foot surgery (Right, 04/08/2019); Other surgical history; [place] tooth extraction; Other surgical history (Right, 04/02/2019); Incontinence surgery (11/15/2015); Other surgical history (Right, 04/22/2019); Other surgical history (Right, 05/06/2019); orthopedic surgery (Right, 04/01/2019); Foot surgery (Right, 04/24/2019); Foot surgery (Left, 08/04/2021); Hysterectomy (1996); Tonsillectomy; andIncision and drainage of wound (Left, 11/21/2022). Restrictions Restrictions/Precautions Restrictions/Precautions: Weight Bearing, Fall Risk Required Braces or Orthoses?: No Lower Extremity Weight Bearing Restrictions Left Lower Extremity Weight Bearing: Non Weight Bearing Position Activity Restriction Other position/activity restrictions: LLE wound vac; RLE BKA (prothesisx 3 in room) Cognition/Orientation Overall Cognitive Status: WFL Overall Orientation Status: Within Functional Limits (Ox3) Subjective Subjective Subjective: Pt in bed. Pt states it's been a rough morning...bowel issues and needed help getting cleaned up. Pt refusing to get OOB and sit in bedside chair. General Comments Comments: h/o right BKA, left AKA October 2022, now left AKA with (+) wound vac Pain Assessment Pain Assessment: (left residual limb 05/10) Objective Balance Sitting Balance: (Good Static sitting balance at EOB with intermittent min assist with bilateral UEsupport.) Bed mobility Supine to Sit: Minimal assistance (Pt reaching for hand and requiring min assist.) Sit to Supine: Stand by assistance Scooting: Minimal assistance Plan Times per Week: 3-5 Plan Weeks: 4 Current Treatment Recommendations: Strengthening, ROM, Balance Training, Functional Mobility Training, Wheelchair Mobility Training, Endurance Training, Pain Management, Safety Education & Training, Positioning, Equipment Evaluation, Education, & procurement, Patient/Caregiver Education & Training, Self-Care / ADL Plan Comment: continue OT POC Safety Safety Devices in place: Yes Type of devices: All fall risk precautions in place, Call light within reach, Patient at risk for falls, Left in bed, Nurse notified Restraints Initially in place: No AM-PAC Score AM-PAC Inpatient Daily Activity Raw Score: 12 ADL Inpatient CMS G-Code Modifier: CL Goals Encounter Problems Encounter Problems (Active) Bathing Patient will utilize adaptive techniques to bathe body, bed level, mod I (Not Addressed) Start: 11/17/22 Expected End: 12/15/22 OT Misc pt will complete HEP with red theraband to increase strength in bilat UE to prepare for transfers (Not Addressed) Start: 11/17/22 Expected End: 12/15/22 Transfers Patient will complete functional transfer with sliding board with min assist in order to prepare for ambulation. (Not Addressed) Start: 11/17/22 Expected End: 12/15/22 Patient will perform bed mobility with supervision in order to improve independence and prepare forout of bed mobility. (Progressing) Start: 11/17/22 Expected End: 12/15/22 Education Education Given To: Patient Education Provided: OT Role, Plan of Care, ADL Adaptive Strategies, Transfer Training Education Provided Comments: Pt educated on bathing and dressing at a bed level if returning home. Also discussed transfers from bed <-> w/c. Education Method: Verbal Barriers to Learning: None Education Outcome: Verbalized understanding Therapy Time Individual Co-treatment Time In 1015 Time Out 1027 Minutes 12 Timed Code Treatment Minutes: 12 Minutes (funct act -1) Goals and/or treatment plan was established in collaboration with patient/family/other representatives. Patient's Occupational Therapy Plan of Care supervision is transferred to [facility] Occupational Therapist. This provider wore a surgical mask and gloves for the duration of the session with this pt. Kierra Enamorado MS, OTR/L * Lulú Zhao MD - 11/26/2022 10:28 AM EST Images from the original note were not included. [phone]: Please page me ([phone]) for patient care issues. [phone]: Please page [facility] Hospitalist for any issues. Subjective: Admit Date: 11/10/2022 PCP: Oj Maddox Room#: H-6132/H-6132 Alf Andreagokul Haas is a 62 y.o. female who presents with Surgical wound infection Interval History: No overnight issues. Denies chest pain, sob, abdominal pain, nausea, vomiting, diarrhea, constipation, fevers, or chills. Pain better controlled. TCC notes noted patient wants to go home not to facility Adult diet Regular 24HR INTAKE/OUTPUT: Intake/Output Summary (Last 24 hours) at 11/26/2022 1028 Last data filed at 11/26/2022 0536 Gross per 24 hour Intake -- Output 1050 ml Net -1050 ml LABS: CBC: Recent Labs 11/24/22 00511/25/22 0017 11/26/22 0009 WBC 6.9 6.4 6.5 RBC 3.34* 3.38* 3.31* HGB 8.4* 8.5* 8.4* HCT 26.2* 27.0* 26.5* MCV 78.5* 80.0 80.0 RDW 21.9* 22.1* 22.4* PLT 425 407 385 BMP: Recent Labs 11/24/22 00511/25/22 0017 11/26/22 0009 NA 135 136 136 K 3.8 3.8 4.1 CL 101 102 103 CO2 30 32* 31* BUN 14 15 15 CREATININE 0.61 0.71 0.68 GLUCOSE 111* 116* 112* CALCIUM 9.1 9.0 8.9 ANIONGAP 4 3 2* LIVER PROFILE:No results for input(s): AST, ALT, BILITOT, ALKPHOS, PROT in the last 72 hours. No lab exists for component: LABALBU PT/INR: No results for input(s): PROTIME, INR in the last 72 hours. CARDIAC ENZYMES: No results for input(s): TROPONINI in the last 72 hours. Procalcitonin: No results found for: PROCAL Objective: Vitals: BP 125/64 (BP Location: Right arm, Patient Position: Lying) Pulse 85 Temp 36.1 C (96.9 F) (Temporal) Resp 18 Ht 5' 7.01 (1.702 m) Wt (!) 357 lb 6.4 oz (162 kg) SpO2 93% BMI 55.96 kg/m Pulse Ox: SpO2 Av.5 % Min: 93 % Max: 96 % Supplemental O2: O2 Flow Rate (L/min): 4 L/min 11/26/2022 General appearance: No apparent distress, appears stated age, HEENT: Eyes: No scleral icterus Oral: Tongue is semi-moist Cardiovascular: S1/S2 heard, RRR Respiratory: Clear to auscultation bilaterally Abdomen: Soft, non-tender, non-distended bowel sounds positive Musculoskeletal: Biateral AKA Skin: Edema and erythema noted on left forearm, pulses felt full. Medications: acetaminophen, 1,000 mg, Oral, q8h amitriptyline, 25 mg, Oral, Nightly apixaban, 5 mg, Oral, BID aspirin, 81 mg, Oral, Daily bisacodyl, 5 mg, Oral, Daily citalopram, 20 mg, Oral, Daily ergocalciferol, 50,000 Units, Oral, Weekly ferrous sulfate, 325 mg, Oral, Every other day fluticasone, 1 spray, Each Nostril, BID gabapentin, 100 mg, Oral, TID heparin flush, 250 Units, IntraCATHeter, q12h influenza, 0.5 mL, IntraMUSCular, Once Lidocaine, 1 patch, Topical, Daily meropenem, 2,000 mg, IntraVENous, q8h methocarbamol, 750 mg, Oral, 3 times per day mometasone-formoterol, 2 puff, Inhalation, BID pantoprazole, 20 mg, Oral, qAM AC polyethylene glycol (PEG) 3350, 17 g, Oral, Daily senna-docusate sodium, 2 tablet, Oral, Nightly sodium chloride 0.9%, 10 mL, IntraCATHeter, q12h sodium chloride 0.9%, 5-40 mL, IntraVENous, q12h tiotropium, 1 capsule, Inhalation, Daily Assessment Left AKA stump surgical site infection, s/p multiple I&D's, and most recently on 11/21. History of recent AKA on 10/23. Acute on chronic microcytic anemia. Acute superficial thrombosis of left cephalic vein, noted on 11/23 1 day after placement of PICC Chronic problems Obesity with likely hypoventilation syndrome FAY on CPAP History of VTE previously on Eliquis depression/anxiety Asthma not in exacerbation Hypertension Plan Orthopedics following ID following, continue IV meropenem Per discussion between my colleague Dr Bond and with Dr. Aldridge, since she is a hard stick andunsure if the superficial thrombosis is PICC related, plans to continue to use PICC and monitor superficial thrombosis repeat ultrasound yesterday - no propagation. Repeat ultrasound tomorrow Eliquis has been restarted on 11/23, monitor hemoglobin, stable Pain well controlled PT recommending facility based therapy, patient wants to go home with home PT. -am labs, replace lytes prn -increase activity Diet Adult diet Regular DVT Prophylaxis [] Lovenox, [] Heparin, [] SCDs, [] Ambulation [x] Already on Anticoagulation GI Prophylaxis [] PPI, [] H2 Leonardo, [] Carafate, [] Diet/Tube Feeds Code Status Full Code Disposition Patient requires continued admission due to the antibiotics arrangement MDM [] Low, [] Moderate,[x] High Patient's risk as above Total time spent (which include face to face and non face to face encounters) : 45 minutes Toxic drug monitoring/narrow therapeutic index drug monitoring : # Drug name : Trudy # Route administered : P.o. # Method of monitoring : CBC Extended Emergency Contact Information Primary Emergency Contact: Luz Marina Mueller Relation: Child Secondary Emergency Contact: Dominga Purcell Relation: Sister Advance Directive: Full Code Discharge planning: TBD LULÚ ZHAO MD Division of Hospitalist Medicine Inpatient Medical Services/[facility] * Molly Tovar MD - 11/25/2022 12:00 PM EST Images from the original note were not included. [phone]: Please page me ([phone]) for patient care issues. [phone]: Please page [facility] night Hospitalist for any issues. Subjective: Admit Date: 11/10/2022 PCP: Oj Maddox Room#: [id number] Alf Haas is a 62 y.o. female who presents with Surgical wound infection Interval History: No overnight issues. Denies chest pain, sob, abdominal pain, nausea, vomiting, diarrhea, constipation, fevers, or chills. Pain better controlled. Adult diet Regular 24HR INTAKE/OUTPUT: Intake/Output Summary (Last 24 hours) at 11/25/2022 1200 Last data filed at 11/25/2022 0900 Gross per 24 hour Intake 1280 ml Output 150 ml Net 1130 ml LABS: CBC: Recent Labs 11/23/22 0304 11/24/22 0053 11/25/22 0017 WBC 6.1 6.9 6.4 RBC 3.45* 3.34* 3.38* HGB 8.6* 8.4* 8.5* HCT 27.5* 26.2* 27.0* MCV 79.7* 78.5* 80.0 RDW 21.6* 21.9* 22.1* PLT 410 425 407 BMP: Recent Labs 11/23/22 0304 11/24/22 0053 11/25/22 0017 NA 134* 135 136 K 3.9 3.8 3.8 CL 102 101 102 CO2 29 30 32* BUN 14 14 15 CREATININE 0.62 0.61 0.71 GLUCOSE 126* 111* 116* CALCIUM 8.6 9.1 9.0 ANIONGAP 3 4 3 LIVER PROFILE:No results for input(s): AST, ALT, BILITOT, ALKPHOS, PROT in the last 72 hours. No lab exists for component: LABALBU PT/INR: No results for input(s): PROTIME, INR in the last 72 hours. CARDIAC ENZYMES: No results for input(s): TROPONINI in the last 72 hours. Procalcitonin: No results found for: PROCAL Objective: Vitals: BP (!) 140/81 (BP Location: Right arm, Patient Position: Lying) Pulse 84 Temp 36.2 C (97.1 F) (Temporal) Resp 19 Ht 5' 7.01 (1.702 m) Wt (!) 357 lb 6.4 oz (162 kg) SpO2 97% BMI55.96 kg/m Pulse Ox: SpO2 Av % Min: 95 % Max: 97 % Supplemental O2: O2 Flow Rate (L/min): 4 L/min 11/25/2022 General appearance: No apparent distress, appears stated age, HEENT: Eyes: No scleral icterus Oral: Tongue is semi-moist Cardiovascular: S1/S2 heard, RRR Respiratory: Clear to auscultation bilaterally Abdomen: Soft, non-tender, non-distended bowel sounds positive Musculoskeletal: Biateral AKA Skin: Edema and erythema noted on left forearm, pulses felt full. Medications: acetaminophen, 1,000 mg, Oral, q8h amitriptyline, 25 mg, Oral, Nightly apixaban, 5 mg, Oral, BID aspirin, 81 mg, Oral, Daily bisacodyl, 5 mg, Oral, Daily citalopram, 20 mg, Oral, Daily ergocalciferol, 50,000 Units, Oral, Weekly ferrous sulfate, 325 mg, Oral, Every other day fluticasone, 1 spray, Each Nostril, BID gabapentin, 100 mg, Oral, TID heparin flush, 250 Units, IntraCATHeter, q12h influenza, 0.5 mL, IntraMUSCular, Once Lidocaine, 1 patch, Topical, Daily meropenem, 2,000 mg, IntraVENous, q8h methocarbamol, 750 mg, Oral, 3 times per day mometasone-formoterol, 2 puff, Inhalation, BID pantoprazole, 20 mg, Oral, qAM AC polyethylene glycol (PEG) 3350, 17 g, Oral, Daily senna-docusate sodium, 2 tablet, Oral, Nightly sodium chloride 0.9%, 10 mL, IntraCATHeter, q12h sodium chloride 0.9%, 5-40 mL, IntraVENous, q12h tiotropium, 1 capsule, Inhalation, Daily Assessment Left AKA stump surgical site infection, s/p multiple I&D's, and most recently on 11/21. History of recent AKA on 10/23. Acute on chronic microcytic anemia. Acute superficial thrombosis of left cephalic vein, noted on 11/23 1 day after placement of PICC Chronic problems Obesity with likely hypoventilation syndrome FAY on CPAP History of VTE previously on Eliquis depression/anxiety Asthma not in exacerbation Hypertension Plan Orthopedics following ID following, continue IV meropenem Per discussion between my colleague Dr Bond and with Dr. Aldridge, since she is a hard stick andunsure if the superficial thrombosis is PICC related, plans to continue to use PICC and monitor superficial thrombosis with repeat ultrasound on day 3, day 5 to look for propagation Eliquis has been restarted on 11/23, monitor hemoglobin Pain well controlled -am labs, replace lytes prn -increase activity Diet Adult diet Regular DVT Prophylaxis [] Lovenox, [] Heparin, [] SCDs, [] Ambulation [x] Already on Anticoagulation GI Prophylaxis [] PPI, [] H2 Leonardo, [] Carafate, [] Diet/Tube Feeds Code Status Full Code Disposition Patient requires continued admission due to the antibiotics, placement MDM [] Low, [] Moderate,[x] High Patient's risk as above Total time spent (which include face to face and non face to face encounters) : 45 minutes Toxic drug monitoring/narrow therapeutic index drug monitoring : # Drug name : Eliquis # Route administered : P.o. # Method of monitoring : CBC Extended Emergency Contact Information Primary Emergency Contact: Luz Marina Mueller Relation: Child Secondary Emergency Contact: Dominga Purcell Relation: Sister Advance Directive: Full Code Discharge planning: TBD Molly Tovar MD Division of Hospitalist Medicine Inpatient Medical Services/[facility] * Teresa Sandoval PEARL DIVER - 11/24/2022 4:09 PM EST Physical Therapy Facility/Department: Physical Therapy Daily Treatment Note NAME: Siobhan Haas : 1960 Date of Service: 11/24/2022 Discharge Recommendations: Facility based therapy PT Equipment Recommendations Equipment Needed: No Other: tbd Assessment Assessment: Pt motivated for PT. Pt able to demonstrate good LLE AKA ROM at hip and w/ functional mobility. Pt able to initiate slide board training from EOB- >chair today w/ Min/Mod x1 for balance. Pt would benefit from ongoing Facility based therapy post Disch. Performance Deficits/Impairments: Decreased functional mobility , Decreased balance, Decreased strength Decision Making: High Complexity Requires PT Follow-Up: Yes Patient Diagnosis(es): The primary encounter diagnosis was Surgical wound infection. Diagnoses of Lymphedema and Superficial venous thrombosis of left upper extremity were also pertinent to this visit. 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 ([facility]) (07/27/2020), Asthma, Cellulitis, Constipation, Depression, Fibromyalgia, GERD (gastroesophageal reflux disease), right BKA([facility]) ([facility]), Hypertension, Morbidly obese ([facility]) ([facility]) (02/03/2019), On home O2, FAY treatedwith BiPAP, Osteoarthritis, Osteomyelitis of right foot ([facility]), Seasonal allergies, Shortness of breath, URSULA (stress [...] Foot surgery (Right, 04/08/2019); Other surgical history; [place] tooth extraction; Other surgical history (Right, 04/02/2019); Incontinence surgery (11/15/2015); Other surgical history (Right, 04/22/2019); Other surgical history (Right, 05/06/2019); orthopedic surgery (Right, 04/01/2019); Foot surgery (Right, 04/24/2019); Foot surgery (Left, 08/04/2021); Hysterectomy (1996); Tonsillectomy; andIncision and drainage of wound (Left, 11/21/2022). Restrictions Restrictions/Precautions Restrictions/Precautions: Fall Risk, Weight Bearing Required Braces or Orthoses?: No Lower Extremity Weight Bearing Restrictions Left Lower Extremity Weight Bearing: Non Weight Bearing Position Activity Restriction Other position/activity restrictions: LLE wound vac; RLE BKA (prothesis in room does not fit) Vision/Hearing Subjective General Chart Reviewed: Yes Patient Assessed for Rehabilitation Services: Yes Response To Previous Treatment: Patient with no complaints from previous session. Family / Caregiver Present: No Follows Commands: Within Functional Limits General Comment Comments: PEARL DIVER wore mask, gloves during PT Rx. Subjective Subjective: Pt in bed, agreeable to PT. nsg cleared pt for PT. Pt states she is getting frustrated not being able to find rehab facility close to home. Pt states Son and sister live w/ her and whe will have help when needed Pain Assessment Pain Assessment: (Pt reported no increased pain during PT Rx.) Cognition/Orientation Overall Cognitive Status: [facility] Cognition Comment: Pt noted to have good understanding of functional deficits and limitations. Overall Orientation Status: Within Functional Limits Objective Bed mobility Rolling to Right: Contact guard assistance Supine to Sit: Minimal assistance Sit to Supine: Unable to assess Scooting: Contact guard assistance (to EOB) Comment: HOB elevated; use of bed rail noted Transfers Sit to Stand: Unable to assess (RLE prothesis did not fit; Pt has new one at home w/o pin system) Stand to sit: Unable to assess Lateral Transfers: Minimal Assistance, Moderate Assistance Comment: pamella slide board from EOB to chair; Min/Mod x1 for balance; RLE prothesis donned w/o pin lock to provide additional TANA for balance. PEARL DIVER had to manage placement of RLE during transfer Ambulation Ambulation: No Wheelchair Activities Wheelchair Parts Management: No Propulsion: No Balance Posture: Good Sitting - Static: Good Sitting - Dynamic: Fair, + Comments: Pt able to sit EOB and use bed rail to try and push RLE into prothesis several attempts. no LOB noted Exercises Hip Flexion: LLE x8 rep Hip Extension/Leg Presses: LLE x5 rep in side lying Hip Abduction: LLE x8 rep + ADD Knee Active Range of Motion: RLE x8 rep full flex/extn noted Other exercises Other exercises?: No Plan Times per Week: 5-7 Plan Weeks: 2 Specific Instructions for Next Treatment: slide board training Current Treatment Recommendations: Strengthening, Balance Training, Functional Mobility Training, Transfer Training, Safety Education & Training, Wheelchair Mobility Training Plan Comment: Cont PT POC Safety Safety Devices Safety Devices in Place: Yes Type of Devices: All fall risk precatuions in place, Call light within reach, Gait belt, Patient atrisk for falls, Left in chair, Nurse notified (sole pad in chair for RN assist back to bed) Outcomes Score AM-PAC Score AM-PAC Inpatient Mobility Raw Score: 10 Mobility Inpatient [facility] G-Code Modifier: CL Goals Encounter Problems Encounter Problems (Active) Balance Patient will maintain dynamic sitting balance with SBA when given moderate challenges in order to demonstrate improved postural control and prepare for out of bed mobility. (Progressing) Start: 11/15/22 Expected End: 11/29/22 Mobility Patient will propel the wheelchair for 50 ft and supervision in order to improve safety and independence with functional mobility. (Not Addressed) Start: 11/15/22 Expected End: 11/29/22 Transfers Patient will perform bed mobility with supervision in order to improve independence and prepare forout of bed mobility. (Progressing) Start: 11/15/22 Expected End: 11/29/22 Patient will complete functional transfer with sliding board with min assist bed to/from drop arm chair or wheelchair. (Progressing) Start: 11/15/22 Expected End: 11/29/22 Education Education Given To: Patient Education Provided: Goals, Plan of Care, Home Exercise Program, Precautions, Transfer Training, Energy Conservation, Functional Mobility Training Education Provided Comments: HEP for L AKA; .slide board transfer Education Method: Verbal, Teach Back Barriers to Learning: None Education Outcome: Verbalized understanding, Demonstrated understanding, Continued education needed Therapy Time Individual Co-treatment Time In 1429 Time Out 1510 Minutes 41 Timed Code Treatment Minutes: 41 Minutes (FA x2; TP x1) Teresa Sandoval PTA * Lulú Zhao MD - 11/24/2022 12:38 PM EST Images from the original note were not included. [phone]: Please page me ([phone]) for patient care issues. [phone]: Please page [facility] Hospitalist for any issues. Subjective: Admit Date: 11/10/2022 PCP: Oj Maddox Room#: [id number] Alf Haas is a 62 y.o. female who presents with Surgical wound infection Interval History: No overnight issues. Denies chest pain, sob, abdominal pain, nausea, vomiting, diarrhea, constipation, fevers, or chills. Pain better controlled. Adult diet Regular 24HR INTAKE/OUTPUT: Intake/Output Summary (Last 24 hours) at 11/24/2022 1238 Last data filed at 11/23/2022 1800 Gross per 24 hour Intake -- Output 425 ml Net -425 ml LABS: CBC: Recent Labs 11/22/22 0607 11/23/22 0304 11/24/22 0053 WBC 8.4 6.1 6.9 RBC 3.61* 3.45* 3.34* HGB 9.2* 8.6* 8.4* HCT 28.9* 27.5* 26.2* MCV 80.1 79.7* 78.5* RDW 22.4* 21.6* 21.9* PLT 444* 410 425 BMP: Recent Labs 11/22/22 0440 11/23/22 0304 11/24/22 0053 NA 132* 134* 135 K 4.4 3.9 3.8 CL 101 102 101 CO2 25 29 30 BUN 13 14 14 CREATININE 0.64 0.62 0.61 GLUCOSE 102* 126* 111* CALCIUM 8.6 8.6 9.1 ANIONGAP 6 3 4 LIVER PROFILE:No results for input(s): AST, ALT, BILITOT, ALKPHOS, PROT in the last 72 hours. No lab exists for component: LABALBU PT/INR: No results for input(s): PROTIME, INR in the last 72 hours. CARDIAC ENZYMES: No results for input(s): TROPONINI in the last 72 hours. Procalcitonin: No results found for: PROCAL Objective: Vitals: BP 125/76 Pulse 84 Temp 36.7 C (98.1 F) (Temporal) Resp 18 Ht 5' 7.01 (1.702 m) Wt (!) 357 lb 6.4 oz (162 kg) SpO2 99% BMI 55.96 kg/m Pulse Ox: SpO2 Av.5 % Min: 95 % Max: 99 % Supplemental O2: O2 Flow Rate (L/min): 4 L/min 11/24/2022 General appearance: No apparent distress, appears stated age, HEENT: Eyes: No scleral icterus Oral: Tongue is semi-moist Cardiovascular: S1/S2 heard, RRR Respiratory: Clear to auscultation bilaterally Abdomen: Soft, non-tender, non-distended bowel sounds positive Musculoskeletal: Biateral AKA Skin: Edema and erythema noted on left forearm, pulses felt full. Medications: acetaminophen, 1,000 mg, Oral, q8h amitriptyline, 25 mg, Oral, Nightly apixaban, 5 mg, Oral, BID aspirin, 81 mg, Oral, Daily bisacodyl, 5 mg, Oral, Daily citalopram, 20 mg, Oral, Daily ergocalciferol, 50,000 Units, Oral, Weekly ferrous sulfate, 325 mg, Oral, Every other day fluticasone, 1 spray, Each Nostril, BID gabapentin, 100 mg, Oral, TID heparin flush, 250 Units, IntraCATHeter, q12h influenza, 0.5 mL, IntraMUSCular, Once Lidocaine, 1 patch, Topical, Daily meropenem, 2,000 mg, IntraVENous, q8h methocarbamol, 750 mg, Oral, 3 times per day mometasone-formoterol, 2 puff, Inhalation, BID pantoprazole, 20 mg, Oral, qAM AC polyethylene glycol (PEG) 3350, 17 g, Oral, Daily senna-docusate sodium, 2 tablet, Oral, Nightly sodium chloride 0.9%, 10 mL, IntraCATHeter, q12h sodium chloride 0.9%, 5-40 mL, IntraVENous, q12h tiotropium, 1 capsule, Inhalation, Daily Assessment Left AKA stump surgical site infection, s/p multiple I&D's, and most recently on 11/21. History of recent AKA on 10/23. Acute on chronic microcytic anemia. Acute superficial thrombosis of left cephalic vein, noted on 11/23 1 day after placement of PICC Chronic problems Obesity with likely hypoventilation syndrome FAY on CPAP History of VTE previously on Eliquis depression/anxiety Asthma not in exacerbation Hypertension Plan Orthopedics following ID following, continue IV meropenem Per discussion between my colleague Dr Bond and with Dr. Aldridge, since she is a hard stick andunsure if the superficial thrombosis is PICC related, plans to continue to use PICC and monitor superficial thrombosis with repeat ultrasound on day 3, day 5 to look for propagation Eliquis has been restarted on 11/23, monitor hemoglobin Pain well controlled -am labs, replace lytes prn -increase activity Diet Adult diet Regular DVT Prophylaxis [] Lovenox, [] Heparin, [] SCDs, [] Ambulation [x] Already on Anticoagulation GI Prophylaxis [] PPI, [] H2 Leonardo, [] Carafate, [] Diet/Tube Feeds Code Status Full Code Disposition Patient requires continued admission due to the antibiotics, placement MDM [] Low, [] Moderate,[x] High Patient's risk as above Total time spent (which include face to face and non face to face encounters) : 45 minutes Toxic drug monitoring/narrow therapeutic index drug monitoring : # Drug name : Eliquis # Route administered : P.o. # Method of monitoring : CBC Extended Emergency Contact Information Primary Emergency Contact: Luz Marina Mueller Relation: Child Secondary Emergency Contact: Dominga Purcell Relation: Sister Advance Directive: Full Code Discharge planning: TBD LULÚ ZHAO MD Division of Hospitalist Medicine Inpatient Medical Services/[facility] * JORDANA Mariano - 11/24/2022 11:05 AM EST Occupational Therapy Facility/Department: Occupational Therapy Treatment NAME: Siobhan Haas : 1960 Date of Service: 11/24/2022 Discharge Recommendations: Facility based therapy OT Equipment Recommendations Equipment Needed: No Assessment Performance deficits / Impairments: Decreased balance, Decreased ADL status, Decreased endurance, Decreased high-level IADLs, Decreased strength, Decreased functional mobility Assessment: Pt. continues to be making good progress but has become deconditioned and HIGH risk forfalls. OT recommend FBT at [place]. Prognosis: Good REQUIRES OT FOLLOW-UP: Yes Activity Tolerance Activity Tolerance: Patient Tolerated treatment well Patient Diagnosis(es): The primary encounter diagnosis was Surgical wound infection. A diagnosis ofLymphedema was also pertinent to this visit. 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 ([facility]) (07/27/2020), Asthma, Cellulitis, Constipation, Depression, Fibromyalgia, GERD (gastroesophageal reflux disease), right BKA([facility]) ([facility]), Hypertension, Morbidly obese ([facility]) ([facility]) (02/03/2019), On home O2, FAY treatedwith BiPAP, Osteoarthritis, Osteomyelitis of right foot ([facility]), Seasonal allergies, Shortness of breath, URSULA (stress [...] Foot surgery (Right, 04/08/2019); Other surgical history; [place] tooth extraction; Other surgical history (Right, 04/02/2019); Incontinence surgery (11/15/2015); Other surgical history (Right, 04/22/2019); Other surgical history (Right, 05/06/2019); orthopedic surgery (Right, 04/01/2019); Foot surgery (Right, 04/24/2019); Foot surgery (Left, 08/04/2021); Hysterectomy (1996); Tonsillectomy; andIncision and drainage of wound (Left, 11/21/2022). Restrictions Restrictions/Precautions Restrictions/Precautions: Fall Risk, Weight Bearing Required Braces or Orthoses?: No Lower Extremity Weight Bearing Restrictions Left Lower Extremity Weight Bearing: Non Weight Bearing Position Activity Restriction Other position/activity restrictions: LLE wound vac w/ irigation Cognition/Orientation Overall Cognitive Status: WFL Overall Orientation Status: Within Functional Limits Subjective General Chart Reviewed: Yes Patient Assessed for Rehabilitation Services: Yes Additional Pertinent Hx: history right BKA Family / Caregiver Present: No Diagnosis: left AKA 10/31/22, s/p I&D 11/11, rpt I&D 11/14, rpt I&D 11/16 Subjective Subjective: pt supine in bed upon entry, agreeable to therapy, c/o pain with L stump, informed nursing Objective Balance Sitting Balance: Modified independent (EOB with table in front of pt.) Standing Balance Comment: Pt. sat on the EOB for most of OT and remained sitting EOB afterwards. OT informed nursing. Bed mobility Rolling to Left: Minimal assistance Supine to Sit: Moderate assistance Scooting: Minimal assistance Plan Plan Comment: continue OT POC Safety-pt. Left sitting EOB, informed nursing, pt. Has tray table infront of her while sitting EOB as well as call light and telephone. AM-PAC Score AM-PAC Inpatient Daily Activity Raw Score: 17 ADL Inpatient CMS G-Code Modifier: CK Goals Encounter Problems Encounter Problems (Active) Bathing Patient will utilize adaptive techniques to bathe body, bed level, mod I (Progressing) Start: 11/17/22 Expected End: 12/15/22 OT Misc pt will complete HEP with red theraband to increase strength in bilat UE to prepare for transfers (Not Addressed) Start: 11/17/22 Expected End: 12/15/22 Transfers Patient will complete functional transfer with sliding board with min assist in order to prepare for ambulation. (Not Addressed) Start: 11/17/22 Expected End: 12/15/22 Patient will perform bed mobility with supervision in order to improve independence and prepare forout of bed mobility. (Progressing) Start: 11/17/22 Expected End: 12/15/22 Education Education Given To: Patient Education Provided: OT Role, Plan of Care, Precautions, Fall Prevention Strategies, ADL Adaptive Strategies Education Provided Comments: pt. continue to be edu. on NWB on L LE, sitting EOB tolerance/balance,bed mobility, grooming sitting EOB and safety. Education Method: Verbal, Demonstration Barriers to Learning: None Education Outcome: Verbalized understanding Therapy Time Individual Co-treatment Time In 1001 Time Out 1046 Minutes 45 Timed Code Treatment Minutes: 45 Minutes (selfcare-2, ther act-1) JORDANA Hyatt * Irene Aldridge MD - 11/24/2022 8:59 AM EST Procedure Team/CCMFollow up note: Patient developed edema, erythema of left forearm yesterday 11/23/22, venous doppler showed: Acute, occlusive superficial vein thrombosis in the cephalic vein of the left forearm. No evidence of acute deep vein thrombosis in the left upper extremity. PICC placed in RUE basilic vein on 11/22/22. While this is upper arm (not forearm where SVT noted) and a different vein it was still concerning that symptoms occurred 1 day after PICC placement. On exam today, there is clearly evidence of previous LUE PIV (healing without evidence of purulence) in mid forearm with surrounding erythema, edema that is tender to palpation. No discharge expressed from IV site. This is clearly the area of the superficial venous thrombosis. The picc site is above the elbow clean without erythema/edema or TTP. RN paged to ask me if PICC ok to use, which it absolutely is safe to use. The issue would be, IF this SVT is PICC related which does not appear to be, would we start anticoagulation therapy or removethe PICC to try preventing propagation. Discussed with Dr. Mcadams yesterday evening. Pt has been maintained on chronic apixaban due to past history of PE, however this had been held for surgical procedures. This was restarted yesterday evening. Plan to keep PICC in place and follow. * Mamta Mcadams - 11/23/2022 6:39 PM EST Discussed with Dr. Aldrideg in regards to removing PICC line with the patient's cephalic SVT. Patientwill have no access for IV antibiotics and she was very difficult to get access for (6 attempts were made yesterday with no success). Will attempt warm compresses and arm elevation. Follow up for symptoms improvement and possible US repeat. * Teresa Sandoval PTA - 11/23/2022 3:25 PM EST Physical Therapy PEARL DIVER in room beginning PT Rx when transport arrived to go to ultrasound for LUE. Will check back as schedule permits. * Siobhan Esquivel APRN - ADEBAYO - 11/23/2022 12:37 PM EST PAGING: The Acute Pain Service providers are available exclusively via [employer]. APS does not utilize pagers. Due to the current environment of [place] [address], PPE was worn for the duration of all face to face encounters including but not limited to an N95 in accordance with CDC and hospital guidelines. 11/23/2022 Subjective: We have been asked to see this 62 y.o. female for acute pain management 2/2 surgical site infection, status post left above-knee amputation 10/31/2022, status post I&D with wound VAC application 11/11/2022, rpt I&D 11/14, rpt I&D 11/16 Pt is s/p multiple I&D and now closure on 11/21 Reviewed X ray left femur 11/10/22. Reviewed XR chest 1 view 11-10-2022 NAEON, no pages. On arrival, pt sitting up in bed. Pt states pain is better controlled today. Pain remains incisional, stabbing, throbbing, but tolerable with present regimen. Pt plans to go to rehab, awaiting acceptance. Tolerating diet, denies n/v. Patient educated on pain regimen, aware that oxycodone, dilaudid are PRN and patient must ask for these medications when needed. Educated patient to utilize oral pain medications as first line and reserve IV pain medications for severe breakthrough pain. Pt is realistic about pain control: Not all pain will be taken away, but pain should be tolerable/manageable with current regimen. Pt instructed to have staff page APS if pain becomes uncontrolled when utilizing present regimen. Pt agreeable, denies further questions. PMH reviewed below Sedation score: 1: Awake and alert Pain Severity: mild to moderate Pain Location: bilateral lower extremities Pain Quality: tender Aggravating Factors: Moving Alleviating Factors: Rest/Pain medications Pain Management: Rad[facility] Pain Management The patient's medical history and physical assessment, [...] No Objective Findings: Height: 170.2 cm (5' 7.01) Weight: (!) 162 kg (357 lb 6.4 oz) BMI (Calculated): 55.96 Vital signs: Blood pressure 136/66, pulse 89, temperature 35.8 C (96.4 F), temperature source Temporal, resp. rate 24, height 1.702 m (5' 7.01), weight (!) 162 kg (357 lb 6.4 oz), SpO2 95 %. 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 ([facility]) 07/27/2020 Asthma Cellulitis Constipation Depression Fibromyalgia GERD (gastroesophageal reflux disease) Hx of right BKA ([facility]) ([facility]) Hypertension Morbidly obese ([facility]) ([facility]) 02/03/2019 BMI 50.52 On home O2 FAY treated with BiPAP Osteoarthritis Osteomyelitis of right foot ([facility]) SCHEDULED FOR THE SURGERY ON 02/11/2019 Seasonal allergies Shortness of breath URSULA (stress urinary incontinence, female) Vertigo Past Surgical History: Procedure Laterality Date ABCESS DRAINAGE Right 08/07/2020 I&D of right BKA hematoma ANKLE SURGERY Left 12/19/2021 ankle I and D with placement of wound vac - alyssa [place] ABDOMINOPLASTY BREAST SURGERY 2006 and abdomin removal for excess COLONOSCOPY COLONOSCOPY EXTREMITY SURGERY Left 01/24/2022 debridement necrotizing fasciitis LLE, wound vac FOOT SURGERY Right 02/11/2019 FOOT SURGERY Right 2019 IN [place] FOOT SURGERY Right 04/08/2019 I&D right foot with antibiotic spacer FOOT SURGERY Right 04/24/2019 I&D;, external fixator FOOT SURGERY Left 08/04/2021 peroneus longus tenolysis - Dr Gamino HYSTERECTOMY 1997 INCISION AND DRAINAGE OF WOUND Left 11/21/2022 LLE INCONTINENCE SURGERY 11/15/2015 synthetic mid urethral sling,cystoscopy [...] Right 05/06/2019 Right Below Knee Amputation (CPT 75887), #2 Excisional debridement right iliac crest (wound [...] below knee amputation (HCC) BKA stump complication ([facility]) 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 ([facility]) Cellulitis of lower leg Back pain Tear of peroneal tendon Depressive disorder Hemorrhage of rectum and anus HTN (hypertension) Pansystolic murmur Chest wall pain Asthma Asthma with acute exacerbation Pain from implanted hardware Obstructive sleep apnea syndrome Chronic obstructive lung disease ([facility]) Morbid obesity (CMS/HCC) ([facility]) Migraine headache Vitamin D deficiency Viral upper respiratory tract infection 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[facility]) Swelling of left lower extremity Shortness of breath Seasonal allergies Superficial incisional surgical site infection Rheumatoid arthritis ([facility]) Restless legs syndrome Anxiety Arthritis of right [...] (BMI) Gastroesophageal reflux disease Hiatal hernia Callosity MCFP (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 antibiotics Left leg cellulitis Dehiscence of closure of skin, sequela Necrotizing soft tissue infection Infected wound Osteomyelitis ([facility]) Hematoma Cellulitis of right foot Post-op pain Osteomyelitis of right foot ([facility]) Open wound of right foot MSSA (methicillin susceptible Staphylococcus aureus) infection Right foot infection Hardware complicating wound infection (CMS/HCC) ([facility]) Right foot pain Postoperative pain Cellulitis Lymphedema Stump pain ([facility]) Abrasion of lower leg with infection, initial encounter PE (pulmonary thromboembolism) ([facility]) Surgical wound infection HLD (hyperlipidemia) Review of Systems Constitutional: Negative. Respiratory: Negative for cough and shortness of breath. Cardiovascular: Negative for chest pain. Gastrointestinal: Negative for nausea and vomiting. Genitourinary: Negative for difficulty urinating. Musculoskeletal: BLE tenderness Skin: Positive for wound (surgical). Psychiatric/Behavioral: Negative for agitation. The patient is not nervous/anxious. Physical Exam Vitals and nursing note reviewed. Constitutional: Appearance: Normal appearance. HENT: Head: Normocephalic and atraumatic. Cardiovascular: Rate and Rhythm: Normal rate. Pulmonary: Effort: Pulmonary effort is normal. Abdominal: Tenderness: There is no guarding. Musculoskeletal: General: Tenderness (BLE) present. Cervical back: Normal range of motion. Skin: General: Skin is warm and dry. Neurological: Mental Status: She is alert and oriented to person, place, and time. Psychiatric: Mood and Affect: Mood normal. Behavior: Behavior normal. Lab Results Component Value Date CREATININE 0.62 11/23/2022 CREATININE 0.70 02/14/2022 AST 31 02/01/2022 Pain Management Adjuvants: 0700 --> 0700 11/16/2022 11/17/2022 11/21/2211/22 Scheduled APAP 0 mg 2,000 mg 2 g 3000mg Gabapentin 0 mg 200 mg 300mg Lidocaine patches X refused Flexeril 10 mg dc PRN Hydromorphone 0.5 mg 3 mg 1.5mg Methocarbamol 2250mg Oxycodone 40 mg 30 mg 60 mg 75mg Morphine DC 12 mg 8 mg xx Assessment / Pain Management Plan: Acute Postsurgical BLE pain Multimodal pain regimen: BLOCK: n/a Continue Acetaminophen 1,000 mg po q8h scheduled ATC. Liver enzymes WNL, last checked: 02/01/22 Continue Robaxin 750 mg TID ATC Continue Lidocaine patch x 1. Cut and place as needed. Continue Oxycodone to 10 - 15 mg po q4h prn moderate to severe breakthrough pain. Continue Hydromorphone 0.25 mg - 0.5 mg IVP q4h prn moderate to severe breakthrough pain. Please utilize oral medications first. Wean as tolerated Continue Gabapentin 100 mg TID Pt can transfer to rehab on current regimen minus the hydromorphone. Pt aware, continue to wean as tolerated Opioid Tolerant Some degree, patient with multiple prescriptions Percocet See #1 Constipation At risk for opioid induced constipation Patient currently receiving opioids for pain management necessitating a bowel regimen. Recommend initiating scheduled Sennakot-S 8.6/50mg, 1 tablet PO BID. Would also recommend Milk of Magnesia 400mg/5ml, administer 30mL by mouth daily PRN. LBM: 11/22 Opioid Use Acute: Expected to be short [...] Pain Service providers are available exclusively via [employer]. APS does not utilize pagers. * Mamta Mcadams - 11/23/2022 12:35 PM EST Health Hospitalist Progress Note Admitting Date and Time: 11/10/2022 2:26 PM Admit Dx: Surgical wound infection [T81.49XA] Subjective: Patient is being followed for Surgical wound infection [T81.49XA] Patient was seen and examined this am. She is awake, alert and oriented. Looking more comfortable today was her pain better controlled. No new complaints ROS: denies fever, chills, cp, sob, n/v, LIZAMA unless stated above. acetaminophen, 1,000 mg, Oral, q8h amitriptyline, 25 mg, Oral, Nightly aspirin, 81 mg, Oral, Daily bisacodyl, 5 mg, Oral, Daily citalopram, 20 mg, Oral, Daily enoxaparin, 30 mg, SubCUTAneous, Daily ergocalciferol, 50,000 Units, Oral, Weekly ferrous sulfate, 325 mg, Oral, Every other day fluticasone, 1 spray, Each Nostril, BID gabapentin, 100 mg, Oral, TID heparin flush, 250 Units, IntraCATHeter, q12h influenza, 0.5 mL, IntraMUSCular, Once Lidocaine, 1 patch, Topical, Daily meropenem, 2,000 mg, IntraVENous, q8h methocarbamol, 750 mg, Oral, 3 times per day mometasone-formoterol, 2 puff, Inhalation, BID pantoprazole, 20 mg, Oral, qAM AC polyethylene glycol (PEG) 3350, 17 g, Oral, Daily senna-docusate sodium, 2 tablet, Oral, Nightly sodium chloride 0.9%, 10 mL, IntraCATHeter, q12h sodium chloride 0.9%, 5-40 mL, IntraVENous, q12h tiotropium, 1 capsule, Inhalation, Daily @MEDPRNMEDS@ Objective: BP 136/66 (BP Location: Right arm, Patient Position: Lying) Pulse 89 Temp 35.8 C (96.4 F) (Temporal) Resp 24 Ht 5' 7.01 (1.702 m) Wt (!) 357 lb 6.4 oz (162 kg) SpO2 95% BMI 55.96 kg/m General Appearance: alert and oriented to person, place and time and in no acute distress Skin: warm and dry Head: normocephalic and atraumatic Eyes: pupils equal, round, and reactive to light, extraocular eye movements intact, conjunctivae normal Neck: neck supple and non tender without mass Pulmonary/Chest: clear to auscultation bilaterally- no wheezes, rales or rhonchi, normal air movement, no respiratory distress Cardiovascular: normal rate, normal S1 and S2 and no carotid bruits Abdomen: soft, non-tender, non-distended, normal bowel sounds, no masses or organomegaly Extremities: RLE with remote BKA, LLE with AKA, dressed with no discharge noted Neurologic: no cranial nerve deficit and speech normal Recent Labs 11/21/22 0137 11/22/22 0440 11/23/22 0304 NA 136 132* 134* K 4.3 4.4 3.9 CL 103 101 102 CO2 32* 25 29 BUN 24* 13 14 CREATININE 0.75 0.64 0.62 GLUCOSE 117* 102* 126* CALCIUM 8.5 8.6 8.6 Recent Labs 11/21/22 0137 11/22/22 0607 11/23/22 0304 WBC 6.0 8.4 6.1 RBC 3.46* 3.61* 3.45* HGB 8.6* 9.2* 8.6* HCT 27.8* 28.9* 27.5* MCV 80.2 80.1 79.7* MCH 25.0* 25.6* 24.8* MCHC 31.2* 31.9* 31.2* RDW 22.3* 22.4* 21.6* PLT 432 444* 410 MPV 7.3* 7.9 7.4 Assessment: Principal Problem: Surgical wound infection Active Problems: HLD (hyperlipidemia) Plan: Left AKA stump surgical site infection, s/p multiple I&D. Most recently on 11/21 Hx recent AKA 10/23 -Orthopedics on board -ID consulted, cultures growing multiple organisms including Enterococcus faecalis, E. coli and Enterobacter. IV meropenem. Pending blood cultures. Blood cultures negative at 24 hours -Pain management on board Acute on chronic microcytic anemia, likely postoperative in the background of SONG -Baseline Hgb around 8-9. Appreciate hematology input. -Continue on p.o. 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 Resume per orthopedics recs. Hx depression/anxiety-continue current meds Eliquis Full code Referrals for placement sent, pending final cultures and antibiotics plan NOTE: This report was transcribed using voice recognition software. Every effort was made to ensureaccuracy; however, inadvertent computerized telecommunications administrator errors may be present. * Luz Marina Borrero - 11/23/2022 9:09 AM EST Images from the original note were not included. [facility] - Infectious Diseases Attending Progress Note Subjective: Following for SSI of L AKA site Patient seen and examined at the bedside today. Patient AAOx3 and reports feeling tired, pain has been at 7/10. Denies fevers, chills, nausea, vomiting, diarrhea, LIZAMA, or new rash. She reports some mild itching and swelling of her left anterior forearm, previous IV site, sx improving now. Objective: Vitals: Patient Vitals for the past 24 hrs: BP Temp Temp src Pulse Resp SpO2 11/22/222003 126/61 36.4 C (97.6 F) Temporal 88 24 93 % Physical Exam Constitutional: Appearance: Normal appearance. She is obese. HENT: Head: Normocephalic and atraumatic. Eyes: Extraocular Movements: Extraocular movements intact. Pupils: Pupils are equal, round, and reactive to light. Cardiovascular: Rate and Rhythm: Normal rate and regular rhythm. Pulses: Normal pulses. Heart sounds: Normal heart sounds. Pulmonary: Effort: Pulmonary effort is normal. No respiratory distress. Breath sounds: Normal breath sounds. Abdominal: General: Abdomen is flat. Bowel sounds are normal. Palpations: Abdomen is soft. Musculoskeletal: Comments: R BKA. L AKA with vac and and drain in place draining dark serosanguinous fluid with mildfilm of purulence noted. Mild erythema on medial aspect of L stump. Skin: General: Skin is warm and dry. Capillary Refill: Capillary refill takes less than 2 seconds. Findings: No erythema or rash. Comments: Left anterior forearm is not erythematous, no rash Neurological: General: No focal deficit present. Mental Status: She is alert and oriented to person, place, and time. Psychiatric: Mood and Affect: Mood normal. Behavior: Behavior normal. Labs: Recent Labs 11/21/22 0137 11/22/22 0440 11/23/22 0304 NA 136 132* 134* K 4.3 4.4 3.9 CL 103 101 102 CO2 32* 25 29 BUN 24* 13 14 CREATININE 0.75 0.64 0.62 GLUCOSE 117* 102* 126* CALCIUM 8.5 8.6 8.6 Recent Labs 11/20/22 1237 11/21/22 0137 11/22/22 0607 11/23/22 0304 WBC 7.1 6.0 8.4 6.1 HGB 8.5* 8.6* 9.2* 8.6* HCT 26.6* 27.8* 28.9* 27.5* PLT 422 432 444* 410 LYMPHOPCT 19.7* 23.7 12.8* 23 MONOPCT 12.7* 12.8* 11.2* 16* BASOPCT 0.6 0.8 0.5 -- NEUTROABS 4.4 3.4 6.2 -- Micro: No results for input(s): COVID19 in the last 72 hours. 11/11 Wound Cx - E. Coli 11/16 Cx from L thigh - Enterobacter cloacae with ampC beta-lacatamse and enterococcus faecalis 11/23 Blood cx collected Lines: Left PICC line in place Wound vac on LLE Radiography/Echo/Other: XR femur 11/10/22: Left AKA with soft tissue edema of left thigh. 11/10/22 EKG: QTC 450 Antimicrobials,Start/End Dates: Cefazolin started 11/12 - 11/13 Ceftriaxone started 11/13 - 11/20 Piperacillin-tazobactam 11/20 -11/21 Meropenem 11/21 - 12/01 Impression: Surgical site infection s/p Left AKA on 10/31/22 S/p multiple I&D with closure on 11/21 Plan: -We will continue meropenem IV 1g daily x2 weeks to cover enterococcus faecalis and enterobacter cloacae -S/p I&D on 11/21. No communications with femur noted. Tobramycin containing cement beads were placed -Pain management per primary Case discussed w/ Dr. Maxwell. Please see attestation for final plan. Luz Marina Borrero Associated attestation - Cristian Maxwell DO - 11/23/2022 6:06 PM EST Patient seen and evaluated with [...] is s/p L AKA 10/31; presented to [facility] 11/10 d/t concern of SSI; s/p multiple [...] erythema; remainder of exam is unremarkable. Will continue meropenem given CX results. Will continue for at least 2 weeks. OPAT form created. Noopposition to d/c from ID standpoint. The ID service will sign off; feel free to call back with any further questions/concerns. More than 51% total time 35 Minutes counseling (or coordinating care) and providing discussion regarding plan of care, expectations, antimicrobials. * Charlie Estevez MD - 11/23/2022 6:43 AM EST Orthopedic Progress Note Name: Siobhan Haas Date:11/23/2022 Attending:Mamta Mcadams Subjective Doing ok. Understands plans going forward. Questions answered. Objective Vitals: 11/21/22 1930 11/21/22 1945 11/22/22 0801 11/22/222003 BP: (!) 159/73 (!) 158/78 (!) 103/39 126/61 BP Location: Right arm Right arm Patient Position: Sitting Lying Pulse: 85 87 94 88 Resp: 16 15 18 24 Temp: 36.2 C (97.2 F) 36.5 C (97.7 F) 36.4 C (97.6 F) TempSrc: Temporal Temporal SpO2: 94% 95% 93% Weight: Height: Physical Exam: General: Resting in bed, NAD LLE Dressing/Skin: Prevena wound vac Clean/Dry/Intact with good seal SILT: Intact in stump Motor: Able to flex hip Pulses: Stump warm LABS: Recent Labs 11/21/22 0137 11/22/22 0607 11/23/22 0304 WBC 6.0 8.4 6.1 HGB 8.6* 9.2* 8.6* HCT 27.8* 28.9* 27.5* PLT 432 444* 410 Recent Labs 11/21/22 0137 11/22/22 0440 11/23/22 0304 NA 136 132* 134* K 4.3 4.4 3.9 CL 103 101 102 CO2 32* 25 29 BUN 24* 13 14 CREATININE 0.75 0.64 0.62 CALCIUM 8.5 8.6 8.6 Recent Labs 11/21/22 0137 INR 1.0 No results for input(s): SEDRATE, CRP in the last 72 hours. No results for input(s): HCG in the last 72 hours. Assessment Siobhan is a 62 y.o.female with L AKA stump SSI, s/p multiple I&D and now closure on 11/21 Plan No plan for return OR NWB LLE Up with assistance Elevate LLE Antibiotics per ID, blood cultures, picc line Dressing: prevena. Please attach to cannister at dc Skin checks DVT ppx: ASA 81mg daily Pain, medical management per primary F/u with Dr. Mercado in 2 weeks Ok for dc from ortho perspective when abx arranged Ortho to sign off * Teresa Sandoval PTA - 11/22/2022 3:15 PM EST Physical Therapy Pt w/ PICC team in room upon arrival. Will check back as schedule permits. * JORDANA Mariano - 11/22/2022 2:24 PM EST Occupational Therapy Facility/Department: Occupational Therapy Treatment NAME: Siobhan Haas : 1960 Date of Service: 11/22/2022 Discharge Recommendations: Facility based therapy Assessment Performance deficits / Impairments: Decreased balance, Decreased ADL status, Decreased endurance, Decreased high-level IADLs, Decreased strength, Decreased functional mobility Assessment: Pt. is making good progress but has become deconditioned and HIGH risk for falls. OT recommend FBT at [place]. Prognosis: Good REQUIRES OT FOLLOW-UP: Yes Patient Diagnosis(es): The encounter diagnosis was Surgical wound infection. 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 ([facility]) (07/27/2020), Asthma, Cellulitis, Constipation, Depression, Fibromyalgia, GERD (gastroesophageal reflux disease), right BKA(CMS/HCC) ([facility]), Hypertension, Morbidly obese (CMS/HCC) ([facility]) (02/03/2019), On home O2, FAY treatedwith BiPAP, Osteoarthritis, Osteomyelitis of right foot ([facility]), Seasonal allergies, Shortness of breath, URSULA (stress [...] Foot surgery (Right, 04/08/2019); Other surgical history; [place] tooth extraction; Other surgical history (Right, 04/02/2019); Incontinence surgery (11/15/2015); Other surgical history (Right, 04/22/2019); Other surgical history (Right, 05/06/2019); orthopedic surgery (Right, 04/01/2019); Foot surgery (Right, 04/24/2019); Foot surgery (Left, 08/04/2021); Hysterectomy (1996); Tonsillectomy; andIncision and drainage of wound (Left, 11/21/2022). Restrictions Restrictions/Precautions Restrictions/Precautions: Fall Risk, Weight Bearing Required Braces or Orthoses?: No Lower Extremity Weight Bearing Restrictions Left Lower Extremity Weight Bearing: Non Weight Bearing Position Activity Restriction Other position/activity restrictions: LLE wound vac w/ irigation Cognition/Orientation Overall Cognitive Status: WFL Overall Orientation Status: Within Functional Limits Subjective Subjective Subjective: pt supine in bed upon entry, agreeable to therapy, c/o pain with L stump, informed nursing Objective Bed mobility Rolling to Left: Minimal assistance Rolling to Right: Minimal assistance Supine to Sit: Moderate assistance Sit to Supine: Minimal assistance Scooting: Maximal assistance, 2 Person assistance Type of ROM/Therapeutic Exercise: AROM Comment: While sitting EOB, pt. performed UE ex's red theraband ex's 2 sets of 10 reps x 4 ex's with supv. Plan Plan Comment: continue OT POC Safety Safety Devices in place: Yes Type of devices: All fall risk precautions in place, Call light within reach, Left in bed, Nurse notified Restraints Initially in place: No AM-PAC Score AM-PAC Inpatient Daily Activity Raw Score: 17 ADL Inpatient CMS G-Code Modifier: CK Goals Encounter Problems Encounter Problems (Active) Bathing Patient will utilize adaptive techniques to bathe body, bed level, mod I (Not Addressed) Start: 11/17/22 Expected End: 12/15/22 OT Misc pt will complete HEP with red theraband to increase strength in bilat UE to prepare for transfers (Progressing) Start: 11/17/22 Expected End: 12/15/22 Transfers Patient will complete functional transfer with sliding board with min assist in order to prepare for ambulation. (Not Addressed) Start: 11/17/22 Expected End: 12/15/22 Patient will perform bed mobility with supervision in order to improve independence and prepare forout of bed mobility. (Progressing) Start: 11/17/22 Expected End: 12/15/22 Education Education Given To: Patient Education Provided: OT Role, Plan of Care, Home Exercise Program, Transfer Training, Precautions Education Provided Comments: pt. edu. on NWB on L LE, reviewed UE ex's program, sitting balance, bed mobility and safety. Education Method: Verbal, Demonstration Barriers to Learning: None Education Outcome: Verbalized understanding Therapy Time Individual Co-treatment Time In 1326 Time Out 1359 Minutes 33 Timed Code Treatment Minutes: 33 Minutes (ther ex-1, ther act-1) JORDANA Hyattally signed by Adwoa Romero OT at 11/22/2022 3:21 PM EST * Mamta Mcadams - 11/22/2022 2:04 PM EST Health Hospitalist Progress Note Admitting Date and Time: 11/10/2022 2:26 PM Admit Dx: Surgical wound infection [T81.49XA] Subjective: Patient is being followed for Surgical wound infection [T81.49XA] Patient was seen and examined this am. She is awake, alert and oriented. Complains of feeling tiredand BLE pain ROS: denies fever, chills, cp, sob, n/v, LIZAMA unless stated above. acetaminophen, 1,000 mg, Oral, q8h amitriptyline, 25 mg, Oral, Nightly aspirin, 81 mg, Oral, Daily bisacodyl, 5 mg, Oral, Daily citalopram, 20 mg, Oral, Daily ergocalciferol, 50,000 Units, Oral, Weekly ferrous sulfate, 325 mg, Oral, Every other day fluticasone, 1 spray, Each Nostril, BID gabapentin, 100 mg, Oral, TID influenza, 0.5 mL, IntraMUSCular, Once Lidocaine, 1 patch, Topical, Daily meropenem, 2,000 mg, IntraVENous, q8h methocarbamol, 750 mg, Oral, 3 times per day mometasone-formoterol, 2 puff, Inhalation, BID pantoprazole, 20 mg, Oral, qAM AC polyethylene glycol (PEG) 3350, 17 g, Oral, Daily senna-docusate sodium, 2 tablet, Oral, Nightly sodium chloride 0.9%, 5-40 mL, IntraVENous, q12h tiotropium, 1 capsule, Inhalation, Daily @MEDPRNMEDS@ Objective: BP (!) 103/39 (BP Location: Right arm, Patient Position: Sitting) Pulse 94 Temp 36.5 C (97.7 F)(Temporal) Resp 18 Ht 5' 7.01 (1.702 m) Wt (!) 357 lb 6.4 oz (162 kg) SpO2 95% BMI 55.96kg/m General Appearance: alert and oriented to person, place and time and in no acute distress Skin: warm and dry Head: normocephalic and atraumatic Eyes: pupils equal, round, and reactive to light, extraocular eye movements intact, conjunctivae normal Neck: neck supple and non tender without mass Pulmonary/Chest: clear to auscultation bilaterally- no wheezes, rales or rhonchi, normal air movement, no respiratory distress Cardiovascular: normal rate, normal S1 and S2 and no carotid bruits Abdomen: soft, non-tender, non-distended, normal bowel sounds, no masses or organomegaly Extremities: RLE with remote BKA, LLE with AKA, dressed with no discharge noted Neurologic: no cranial nerve deficit and speech normal Recent Labs 11/20/22 1237 11/21/22 0137 11/22/22 0440 NA 135 136 132* K 4.2 4.3 4.4 CL 102 103 101 CO2 28 32* 25 BUN 20* 24* 13 CREATININE 0.68 0.75 0.64 GLUCOSE 104* 117* 102* CALCIUM 8.4 8.5 8.6 Recent Labs 11/20/22 1237 11/21/22 0137 11/22/22 0607 WBC 7.1 6.0 8.4 RBC 3.33* 3.46* 3.61* HGB 8.5* 8.6* 9.2* HCT 26.6* 27.8* 28.9* MCV 79.7* 80.2 80.1 MCH 25.5* 25.0* 25.6* MCHC 32.0 31.2* 31.9* RDW 21.9* 22.3* 22.4* PLT 422 432 444* MPV 7.5 7.3* 7.9 Assessment: Principal Problem: Surgical wound infection Active Problems: HLD (hyperlipidemia) Plan: Left AKA stump surgical site infection, s/p multiple I&D Hx recent AKA 10/23 -Lastly on 11/21. Followed by orthopedic -ID consulted, cultures growing multiple organisms including Enterococcus faecalis and Enterobacter. IV meropenem. Pending blood cultures -Pain management Acute on chronic microcytic anemia, likely postoperative in the background of SONG -Baseline Hgb around 8-9. Appreciate hematology input. -Continue on p.o. iron therapy Hx Asthma-Stable Continue Dulera and Spiriva HTN blood pressure controlled off blood pressure medications Continue monitor blood pressure per protocol Class III obesity due to excessive calories FAY mild be related to obesity Weight loss CPAP Hx depression/anxiety-continue current meds SCDs Full code NOTE: This report was transcribed using voice recognition software. Every effort was made to ensureaccuracy; however, inadvertent computerized telecommunications administrator errors may be present. * Kierra Monaco, SUPERVISOR HAND SILVERING - DATA MINING ANALYST - 11/22/2022 1:41 PM EST PAGING: The Acute Pain Service providers are available exclusively via [employer]. APS does not utilize pagers. Due to the current environment of [place] [id number], PPE was worn for the duration of all face to face encounters including but not limited to an N95 in accordance with [facility] and hospital guidelines. 11/22/2022 Subjective: We have been asked to see this 62 y.o. female for acute pain management 2/ surgical site infection, status post left above-knee amputation 10/31/2022, status post I&D with wound VAC application 11/11/2022, rpt I&D 11/14, rpt I&D 11/16 Pt is s/p multiple I&D and now closure on 11/21 Reviewed X ray left femur 11/10/22. Reviewed XR chest 1 view 11-10-2022 NAEON, no pages. On arrival, pt sitting up in bed. Pt appears uncomfortable. States she had difficulty sleeping overnight d/t pain. C/O muscle spasms in LLE. Feels current Oxycodone dose helps somewhat. We discussed adding robaxin today, patient agrees to plan. Patient educated on pain regimen, aware that oxycodone, dilaudid are PRN and patient must ask for these medications when needed. Educated patient to utilize oral pain medications as first line and reserve IV pain medications for severe breakthrough pain. Pt is realistic about pain control: Not all pain will be taken away, but pain should be tolerable/manageable with current regimen. Pt instructedto have staff page APS if pain becomes uncontrolled when utilizing present regimen. Pt agreeable, denies further questions. PMH reviewed below Sedation score: 1: Awake and alert Pain Severity: mild to moderate Pain Location: bilateral lower extremities Pain Quality: tender Aggravating Factors: Moving Alleviating Factors: Rest/Pain medications Pain Management: [facility] The patient's medical history and physical assessment, [...] No Objective Findings: Height: 170.2 cm (5' 7.01) Weight: (!) 162 kg (357 lb 6.4 oz) BMI (Calculated): 55.96 Vital signs: Blood pressure (!) 103/39, pulse 94, temperature 36.5 C (97.7 F), temperature source Temporal, resp. rate 18, height 1.702 m (5' 7.01), weight (!) 162 kg (357 lb 6.4 oz), SpO2 95 %. 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 ([facility]) 07/27/2020 Asthma Cellulitis Constipation Depression Fibromyalgia GERD (gastroesophageal reflux disease) Hx of right BKA ([facility]) ([facility]) Hypertension Morbidly obese ([facility]) ([facility]) 02/03/2019 BMI 50.52 On home O2 FAY treated with BiPAP Osteoarthritis Osteomyelitis of right foot ([facility]) SCHEDULED FOR THE SURGERY ON 02/11/2019 Seasonal allergies Shortness of breath URSULA (stress urinary incontinence, female) Vertigo Past Surgical History: Procedure Laterality Date ABCESS DRAINAGE Right 08/07/2020 I&D of right BKA hematoma ANKLE SURGERY Left 12/19/2021 ankle I and D with placement of wound vac - dr reynas BELT ABDOMINOPLASTY BREAST SURGERY 2006 and abdomin removal for excess COLONOSCOPY COLONOSCOPY EXTREMITY SURGERY Left 01/24/2022 debridement necrotizing fasciitis LLE, wound vac FOOT SURGERY Right 02/11/2019 FOOT SURGERY Right 2019 [place] FOOT SURGERY Right 04/08/2019 I&D right foot with antibiotic spacer FOOT SURGERY Right 04/24/2019 I&D;, external fixator FOOT SURGERY Left 08/04/2021 peroneus longus tenolysis - Dr Gamino HYSTERECTOMY 1997 INCISION AND DRAINAGE OF WOUND Left 11/21/2022 LLE INCONTINENCE SURGERY 11/15/2015 synthetic mid urethral sling,cystoscopy [...] Right 05/06/2019 Right Below Knee Amputation (CPT 27926), #2 Excisional debridement right iliac crest (wound [...] (BMI) Gastroesophageal reflux disease Hiatal hernia Callosity long term care pharmacist (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 antibiotics Left leg cellulitis Dehiscence of closure of skin, sequela Necrotizing soft tissue infection Infected wound Osteomyelitis ([facility]) Hematoma Cellulitis of right foot Post-op pain Osteomyelitis of right foot ([facility]) Open wound of right foot MSSA (methicillin susceptible Staphylococcus aureus) infection Right foot infection Hardware complicating wound infection (CMS/HCC) ([facility]) Right foot pain Postoperative pain Cellulitis Lymphedema Stump pain ([facility]) Abrasion of lower leg with infection, initial encounter PE (pulmonary thromboembolism) ([facility]) Surgical wound infection HLD (hyperlipidemia) Review of Systems Constitutional: Negative. Respiratory: Negative for cough and shortness of breath. Cardiovascular: Negative for chest pain. Gastrointestinal: Negative for nausea and vomiting. Genitourinary: Negative for difficulty urinating. Musculoskeletal: BLE tenderness Skin: Positive for wound (surgical). Psychiatric/Behavioral: Negative for agitation. The patient is not nervous/anxious. Physical Exam Vitals and nursing note reviewed. Constitutional: Appearance: Normal appearance. HENT: Head: Normocephalic and atraumatic. Cardiovascular: Rate and Rhythm: Normal rate. Pulmonary: Effort: Pulmonary effort is normal. Abdominal: Tenderness: There is no guarding. Musculoskeletal: General: Tenderness (BLE) present. Cervical back: Normal range of motion. Skin: General: Skin is warm and dry. Neurological: Mental Status: She is alert and oriented to person, place, and time. Psychiatric: Mood and Affect: Mood normal. Behavior: Behavior normal. Lab Results Component Value Date CREATININE 0.64 11/22/2022 CREATININE 0.70 02/14/2022 AST 31 02/01/2022 Pain Management Adjuvants: 0700 --> 0700 11/16/2022 11/17/2022 11/21/22 Scheduled APAP 0 mg 2,000 mg 2 g Gabapentin 0 mg 200 mg Lidocaine patches X Flexeril 10 mg PRN Hydromorphone 0.5 mg 3 mg Methocarbamol Oxycodone 40 mg 30 mg 60 mg Morphine DC 12 mg 8 mg Assessment / Pain Management Plan: Acute Postsurgical BLE pain Multimodal pain regimen: BLOCK: n/a Continue Acetaminophen 1,000 mg po q8h scheduled ATC. Liver enzymes WNL, last checked: 02/01/22 Discontinue Flexeril Order Robaxin 750 mg TID ATC Continue Lidocaine patch x 1. Cut and place as needed. Continue Oxycodone to 10 - 15 mg po q4h prn moderate to severe breakthrough pain. Continue Hydromorphone 0.25 mg - 0.5 mg IVP q4h prn moderate to severe breakthrough pain. Please utilize oral medications first. Continue Gabapentin 100 mg TID Opioid Tolerant Some [...] and your body's abilityto heal itself. Will follow Plan discussed with patient who appears to understand and agrees. PAGING: The Acute Pain Service providers are available exclusively via [employer]. APS does not utilize pagers. * Joanna Sandoval PA-C - 11/22/2022 11:43 AM EST Images from the original note were not included. Orthopedic Progress Note Name: Siobhan Haas Date:11/22/2022 Attending:Mamta Mcadams Subjective CHIEF COMPLAINT: L AKA stump SSI, s/p multiple I&D and now closure on 11/21 HPI: Patient reports that her pain continues to be significant. Unfortunately, her IV access was lost, and she has been relying on oral pain medication today. Rapid response/IV team at bedside inserting IV into the right upper extremity during time of encounter today. She denies any fevers or chills. Patient is emotional surrounding the decision to discharge to a facility postoperatively. Emotional support and reassurance provided. Discussed with patient plan for follow-up with Dr. Mercado's MELISSA. 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) Cellulitis of lower leg Back pain Tear of peroneal tendon Depressive disorder Hemorrhage of rectum and anus HTN (hypertension) Pansystolic murmur Chest wall pain Asthma Asthma with acute exacerbation Pain from implanted hardware Obstructive sleep apnea syndrome Chronic obstructive lung disease ([facility]) Morbid obesity (CMS/HCC) ([facility]) Migraine headache Vitamin D deficiency Viral upper respiratory tract infection 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[facility]) Swelling of left lower extremity Shortness of breath Seasonal allergies Superficial incisional surgical site infection Rheumatoid arthritis ([facility]) Restless legs syndrome Anxiety Arthritis of right [...] (BMI) Gastroesophageal reflux disease Hiatal hernia Callosity [facility] (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 antibiotics Left leg cellulitis Dehiscence of closure of skin, sequela Necrotizing soft tissue infection Infected wound Osteomyelitis ([facility]) Hematoma Cellulitis of right foot Post-op pain Osteomyelitis of right foot ([facility]) Open wound of right foot MSSA (methicillin susceptible Staphylococcus aureus) infection Right foot infection Hardware complicating wound infection (CMS/HCC) ([facility]) Right foot pain Postoperative pain Cellulitis Lymphedema Stump pain ([facility]) Abrasion of lower leg with infection, initial encounter PE (pulmonary thromboembolism) ([facility]) Surgical wound infection HLD (hyperlipidemia) PAST SURGICAL [...] Right 02/11/2019 FOOT SURGERY Right 2019 [place] FOOT SURGERY Right 04/08/2019 I&D right foot with antibiotic spacer FOOT SURGERY Right 04/24/2019 I&D;, external fixator FOOT SURGERY Left 08/04/2021 peroneus longus tenolysis - Dr Gamino HYSTERECTOMY 1997 INCISION AND DRAINAGE OF WOUND Left 11/21/2022 LLE INCONTINENCE SURGERY 11/15/2015 synthetic mid urethral sling,cystoscopy [...] Right 05/06/2019 Right Below Knee Amputation (CPT 28757), #2 Excisional debridement right iliac crest (wound [...] Historical Provider, cholecalciferol (Vitamin D-3) 1.25 MG (10144 UT) capsule Take by mouth 1 (one) [...] before November 03, 2022. 11/03/22 Vinh Collins, LORazepam (Ativan) 0.5 MG tablet Take 0.5 [...] MEDICATIONS Current Facility-Administered Medications: acetaminophen (Tylenol) tablet 1,000 mg, 1,000 mg, Oral, q8h, Maximino Aceves JD, MD, 1,000 mg at 11/22/22 1006 albuterol (2.5 MG/3ML) 0.083% nebulizer solution 2.5 mg, 2.5 mg, Nebulization, q4h PRN, Maximino Aceves JD, MD amitriptyline (Elavil) tablet 25 mg, 25 mg, Oral, Nightly, Maximino Acevse JD, MD, 25 mg at 11/21/222053 aspirin EC tablet 81 mg, 81 mg, Oral, Daily, Maximino Aceves JD, MD, 81 mg at 11/22/22 0801 bisacodyl (Dulcolax) EC tablet 5 mg, 5 mg, Oral, Daily, Maximino Aceves JD, MD, 5 mg at 11/22/22 0608 budesonide (Pulmicort) 0.5 MG/2ML nebulizer solution 0.5 mg, 0.5 mg, Nebulization, BID PRN, Maximino Aceves JD, MD citalopram (CeleXA) tablet 20 mg, 20 mg, Oral, Daily, Maximino Aceves JD, MD, 20 mg at 11/22/22 08 cyclobenzaprine (Flexeril) tablet 10 mg, 10 mg, Oral, Nightly, Maximino Aceves JD, MD, 10 mg at 11/21/222053 ergocalciferol (Vitamin D2) capsule 1.25 mg, 50,000 Units, Oral, Weekly, Maximino Aceves JD, MD, 1.25 mg at 11/19/22 0834 ferrous sulfate tablet 325 mg, 325 mg, Oral, Every other day, Maximino Aceves JD, MD, 325 mg at 11/22/22 0801 fluticasone (Flonase) nasal spray 1 spray, 1 spray, Each Nostril, BID, Maximino Aceves JD, MD, 1 spray at 11/21/22 2100 gabapentin (Neurontin) capsule 100 mg, 100 mg, Oral, TID, Maximino Aceves JD, MD, 100 mg at 11/22/22 0802 HYDROmorphone (Dilaudid) injection 0.25 mg, 0.25 mg, IntraVENous, q4h PRN OR HYDROmorphone (Dilaudid) injection 0.5 mg, 0.5 mg, IntraVENous, q4h PRN, Maximino Aceves JD, MD, 0.5 mg at 11/22/22 0047 influenza vac subunit quadrivalent (Flucelvax) injection 0.5 mL, 0.5 mL, IntraMUSCular, Once, Maximino Aceves JD, MD Lidocaine 4 % patch 1 patch, 1 patch, Topical, Daily, Maximino Aceves JD, MD, 1 patch at 11/13/22 0935 LORazepam (Ativan) tablet 0.5 mg, 0.5 mg, Oral, q8h PRN, Maximino Aceves JD, MD, 0.5 mg at 052 meropenem (Merrem) 2,000 mg in sodium chloride 0.9 % 100 mL IVPB, 2,000 mg, IntraVENous, q8h, Cristian Maxwell DO mometasone-formoterol (Dulera 100) 100-5 MCG/ACT inhaler 2 puff, 2 puff, Inhalation, BID, Maximino Aceves JD, MD, 2 puff at 11/22/22 0803 naloxone (Narcan) 0.4 mg in 0.9% sodium chloride 10 mL syringe, , IntraVENous, PRN, Maximino Aceves JD, MD ondansetron ODT (Zofran-ODT) disintegrating tablet 4 mg, 4 mg, Oral, q8h PRN OR ondansetron (Zofran) injection 4 mg, 4 mg, IntraVENous, q6h PRN, Maximino Aceves JD, MD, 4 mg at 11/16/22 1819 oxyCODONE (Roxicodone) immediate release tablet 10 mg, 10 mg, Oral, q4h PRN OR oxyCODONE (Roxicodone) immediate release tablet 15 mg, 15 mg, Oral, q4h PRN, Maximino Aceves JD, MD, 15 mg at 11/22/22 1006 pantoprazole (ProtoNix) EC tablet 20 mg, 20 mg, Oral, qAM AC, Maximino Aceves JD, MD, 20 mg at 11/22/22 0608 polyethylene glycol (PEG) 3350 (Miralax) packet 17 g, 17 g, Oral, Daily, Maximino Aceves JD, MD, 17g at 11/22/22 0802 senna-docusate sodium (Senokot-S) 8.6-50 MG tablet 2 tablet, 2 tablet, Oral, Nightly, Maximino Aceves JD, MD, 2 tablet at 11/21/222053 sodium chloride 0.9 % infusion, 5-250 mL/hr, IntraVENous, PRN, Maximino Aceves JD, MD sodium chloride 0.9% (NS) flush 5-40 mL, 5-40 mL, IntraVENous, q12h, Maximino Aceves JD, MD, 10 mL at 11/22/22 0700 sodium chloride 0.9% (NS) flush 5-40 mL, 5-40 mL, IntraVENous, PRN, Maximino Aceves JD, MD tiotropium (Spiriva) 18 MCG per inhalation capsule 18 mcg, 1 capsule, Inhalation, Daily, Maximino Aceves JD, MD, 18 mcg at 11/21/22 0747 ALLERGIES: Amlodipine, Clonazepam, Ketamine, Lisinopril, and Vancomycin [...] Narrative Has been in rehab facility in [place] Lives alone, son close Friends help Social [...] systems reviewed and are negative VITALS: Vitals: 11/21/22 1915 11/21/22 1930 11/21/22 1945 11/22/22 0801 BP: (!) 154/97 (!) 159/73 (!) 158/78 (!) 103/39 BP Location: Right arm Patient Position: Sitting Pulse: 88 85 87 94 Resp: 18 16 15 18 Temp: 36.2 C (97.2 F) 36.5 C (97.7 F) TempSrc: Temporal SpO2: 100% 94% 95% Weight: Height: PHYSICAL EXAM: GENERAL: Patient is well developed/well nourished in NAD. A+O x 4 MOOD AND AFFECT: Calm appropriate to situation GAIT AND STATION: Patient is in bed COORDINATION and BALANCE: Patient is grossly coordinated LYMPHADENOPATHY: none on examination of the affected extremity(s) LLE INSPECTION DRESSING: Prevena wound VAC in place with audible suction and serosanguineous discharge in canister. Mild erythema over the posterior aspect of the stump. No palpable fluid collection. NEUROLOGICAL: SILT intact to stump MOTOR: + Hip flexion VASCULAR: Stump is warm and well-perfused LABS: CBC: Lab Results Component Value Date WBC 8.4 11/22/2022 RBC 3.61 (L) 11/22/2022 BMP: Lab Results Component Value Date GLUCOSE 102 (H) 11/22/2022 CO2 25 11/22/2022 BUN 13 11/22/2022 CREATININE 0.64 11/22/2022 CALCIUM 8.6 11/22/2022 PT/INR: Lab Results Component Value Date INR 1.0 11/21/2022 Type and Screen: Lab Results Component Value Date RH POS 11/21/2022 CRP: No results found for: CRP ESR: No results found for: SEDRATE HgBA1c: No components found for: LABA1C The above labs were reviewed by me. Assessment Siobhan is a 62 y.o.female L AKA stump SSI, s/p multiple I&D and now closure on 11/21 Plan -NWB LLE -Up with assistance -Elevate LLE -Antibiotics per ID, blood cultures, picc line -Monitor Hgb, appreciate hematology consult -Dressing: prevena. Please attach to cannister at dc -Skin checks -DVT ppx: ASA 81mg daily -Pain, medical management per primary -Patient was scheduled a follow up appointment for 12/06/2022 at 2:[address] Mercado's MELISSA, Jennifer Jackson -Ok for dc from ortho perspective when abx arranged * Jon Lopez - 11/22/2022 10:07 AM EST Images from the original note were not included. [facility] - Infectious Diseases Attending Progress Note Subjective: Following for SSI of L AKA site Patient seen and examined at the bedside today in some discomfort. Patient AAOx3 and reports feeling worn out after her surgery yesterday. She also reports new pain, redness, and discomfort on extensor surface of L forearm, and mild headache. She denies fevers, chills, night sweats, nausea, vomiting, diarrhea, new rash, changes in vision or hearing. Objective: Vitals: Patient Vitals for the past 24 hrs: BP Temp Temp src Pulse Resp SpO2 11/22/22 0801 (!) 103/39 36.5 C (97.7 F) Temporal 94 18 -- 11/21/22 1945 (!) 158/78 -- -- 87 15 95 % 11/21/22 1930 (!) 159/73 36.2 C (97.2 F) -- 85 16 94 % 11/21/22 1915 (!) 154/97 -- -- 88 18 100 % 11/21/22 1900 (!) 157/72 -- -- 90 19 100 % 11/21/22 1845 (!) 147/78 -- -- 86 16 100 % 11/21/22 1830 139/77 36.1 C (97 F) Temporal 87 17 96 % 11/21/22 1304 128/63 36.6 C (97.8 F) Temporal 79 -- 93 % 11/21/22 1244 124/64 36.3 C (97.4 F) Temporal 81 16 93 % Physical Exam Constitutional: Appearance: Normal appearance. She is obese. HENT: Head: Normocephalic and atraumatic. Eyes: Extraocular Movements: Extraocular movements intact. Pupils: Pupils are equal, round, and reactive to light. Cardiovascular: Rate and Rhythm: Normal rate and regular rhythm. Pulses: Normal pulses. Heart sounds: Normal heart sounds. Pulmonary: Effort: Pulmonary effort is normal. No respiratory distress. Breath sounds: Normal breath sounds. Abdominal: General: Abdomen is flat. Bowel sounds are normal. Palpations: Abdomen is soft. Musculoskeletal: Comments: R BKA. L AKA with vac and and drain in place draining serosanguinous fluid. No purulence noted. Mild erythema on medial aspect of L stump. Skin: General: Skin is warm and dry. Capillary Refill: Capillary refill takes less than 2 seconds. Neurological: General: No focal deficit present. Mental Status: She is alert and oriented to person, place, and time. Psychiatric: Mood and Affect: Mood normal. Behavior: Behavior normal. Labs: Recent Labs 11/20/22 1237 11/21/22 0137 11/22/22 0440 NA 135 136 132* K 4.2 4.3 4.4 CL 102 103 101 CO2 28 32* 25 BUN 20* 24* 13 CREATININE 0.68 0.75 0.64 GLUCOSE 104* 117* 102* CALCIUM 8.4 8.5 8.6 Recent Labs 11/20/22 1237 11/21/22 0137 11/22/22 0607 WBC 7.1 6.0 8.4 HGB 8.5* 8.6* 9.2* HCT 26.6* 27.8* 28.9* PLT 422 432 444* LYMPHOPCT 19.7* 23.7 12.8* MONOPCT 12.7* 12.8* 11.2* BASOPCT 0.6 0.8 0.5 NEUTROABS 4.4 3.4 6.2 Micro: No results for input(s): COVID19 in the last 72 hours. 11/11 Wound Cx - E. Coli 11/16 Cx from L thigh - Enterobacter cloacae with ampC beta-lacatamse and enterococcus [...] AKA on 10/31/22 S/p multiple I&D Plan: -We will continue meropenem IV 1g daily x2 weeks to cover enterococcus faecalis and enterobacter cloacae -S/p I&D yesterday. No communications with femur noted. Cement beads w/ tobramycin placed -Pain management per primary Case discussed w/ Dr. Maxwell. Please see attestation for final plan. Jon Jadexandersmita MS4, Infectious Disease Associated attestation - Cristian Maxwell DO - 11/22/2022 5:55 PM EST Patient seen and evaluated with [...] is s/p L AKA 10/31; presented to [facility] 11/10 d/t concern of SSI; s/p multiple [...] erythema; remainder of exam is unremarkable. Will continue meropenem given CX results. Will continue for at least 2 weeks. Will create OPAT form. The ID service will continue to follow. More than 51% total time 35 Minutes counseling (or coordinating care) and providing discussion regarding plan of care, expectations, antimicrobials. * Maged Wilder MD - 11/22/2022 6:54 AM EST Orthopedic Progress Note Name: Siobhan Haas Date:11/22/2022 Attending:Kimo Stevens,* Subjective Stump is sore. Had some sweats overnight. Otherwise doing ok. Voiding, tolerating diet. Denies f/c/n/v/cp/sob. Objective Vitals: 11/21/22 1900 11/21/22 19111/21/22 1930 11/21/221944 BP: (!) 157/72 (!) 154/97 (!) 159/73 (!) 158/78 BP Location: Patient Position: Pulse: 90 88 85 87 Resp: 18 16 15 Temp: 36.2 C (97.2 F) TempSrc: SpO2: 100% 100% 94% 95% Weight: Height: Physical Exam: General: Resting in bed, NAD LLE Dressing/Skin: Prevena wound vac Clean/Dry/Intact with good seal SILT: Intact in stump Motor: Able to flex hip Pulses: Stump warm LABS: Recent Labs 11/20/22 0026 11/20/22 1237 11/21/22 0137 WBC 7.4 7.1 6.0 HGB 7.5* 8.5* 8.6* HCT 24.1* 26.6* 27.8* PLT 431 422 432 Recent Labs 11/20/22 1237 11/21/22 0137 11/22/22 0440 NA 135 136 132* K 4.2 4.3 4.4 CL 102 103 101 CO2 28 32* 25 BUN 20* 24* 13 CREATININE 0.68 0.75 0.64 CALCIUM 8.4 8.5 8.6 Recent Labs 11/21/22 0137 INR 1.0 No results for input(s): SEDRATE, CRP in the last 72 hours. No results for input(s): HCG in the last 72 hours. Assessment Siobhan is a 62 y.o.female with L AKA stump SSI, s/p multiple I&D and now closure on 11/21 Plan NWB LLE Up with assistance Elevate LLE Antibiotics per ID, blood cultures, picc line Monitor Hgb, appreciate hematology consult Dressing: prevena. Please attach to cannister at dc Skin checks DVT ppx: ASA 81mg daily Pain, medical management per primary F/u with Dr. Mercado in 2 weeks Ok for dc from ortho perspective when abx arranged Keenan Wilder MD Orthopedic Surgery, PGY4 11/22/22 6:55 AM [phone] * Teresa Sandoval, PEARL DIVER - 11/21/2022 4:25 PM EST Physical Therapy Facility/Department: Physical Therapy Daily Treatment Note NAME: Siobhan Haas : 1960 Date of Service: 11/21/2022 Discharge Recommendations: Facility based therapy PT Equipment Recommendations Equipment Needed: No Other: tbd Assessment Assessment: Pt motivated for PT. Pt states she will have RLE prosthetic brought in to see if it fits. Pt performed log rolling w/ MIn x1 and bridging to HOB w/ MOd x2 today. Pt declined sitting EOBd/t going for LLE I&D soon, but was able to demonstrate good LLE hip ROM today w/o increased pain. Pt would benefit from ongoing Facility based therapy post Disch. Performance Deficits/Impairments: Decreased functional mobility , Decreased balance, Decreased strength Decision Making: High Complexity Requires PT Follow-Up: Yes Patient Diagnosis(es): The encounter diagnosis was Surgical wound infection. 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 ([facility]) (07/27/2020), Asthma, Cellulitis, Constipation, Depression, Fibromyalgia, GERD (gastroesophageal reflux disease), right BKA([facility]) ([facility]), Hypertension, Morbidly obese ([facility]) ([facility]) (02/03/2019), On home O2, FAY treatedwith BiPAP, Osteoarthritis, Osteomyelitis of right foot ([facility]), Seasonal allergies, Shortness of breath, URSULA (stress [...] Foot surgery (Right, 04/08/2019); Other surgical history; [place] tooth extraction; Other surgical history (Right, 04/02/2019); Incontinence surgery (11/15/2015); Other surgical history (Right, 04/22/2019); Other surgical history (Right, 05/06/2019); orthopedic surgery (Right, 04/01/2019); Foot surgery (Right, 04/24/2019); Foot surgery (Left, 08/04/2021); Hysterectomy (1996); and Tonsillectomy. Restrictions Restrictions/Precautions Restrictions/Precautions: Fall Risk, Weight Bearing Required Braces or Orthoses?: No Lower Extremity Weight Bearing Restrictions Left Lower Extremity Weight Bearing: Non Weight Bearing Position Activity Restriction Other position/activity restrictions: LLE wound vac w/ irigation Vision/Hearing Subjective General Chart Reviewed: Yes Additional Pertinent Hx: previous R BKA Response To Previous Treatment: Patient with no complaints from previous session. Family / Caregiver Present: Yes (sisters) Follows Commands: Within Functional Limits General Comment Comments: PEARL DIVER wore mask, gloves during PT Rx. Subjective Subjective: Pt in bed, c/o wetness under her. Pt agreeable to PT. RN present to assist w/ bed change and cleared pt for PT Pain Assessment Pain Assessment: (Pt reported no increased LLE pain during PT Rx.) Cognition/Orientation Overall Cognitive Status: [facility] Cognition Comment: Pt noted to have good understanding of functional deficits and limitations. Overall Orientation Status: Within Functional Limits Objective Bed mobility Bridging: Moderate assistance, 2 Person assistance (to HOB) Rolling to Left: Minimal assistance Rolling to Right: Minimal assistance Comment: HOB flat; log roll performed for change of bedding and pericare Transfers Sit to Stand: Unable to assess Stand to sit: Unable to assess Comment: slide board NT today; Ambulation Ambulation: No (Bilat Amp w/ no prothesis) Balance Posture: Good Comments: Pt able to self assist and maintain rolling/side lying w/ use of rail, MIn x1 to completefull trun onto side. Exercises Comments: LLE hip flex, ABD and extn in sidelying x10 rep ea Plan Times per Week: 5-7 Plan Weeks: 2 Specific Instructions for Next Treatment: trial STS if RLE prosthetic fits; slide board training. Current Treatment Recommendations: Strengthening, Balance Training, Functional Mobility Training, Transfer Training, Safety Education & Training, Wheelchair Mobility Training Plan Comment: Cont PT POC Safety Safety Devices Safety Devices in Place: Yes Type of Devices: All fall risk precatuions in place, Call light within reach, Patient at risk for falls, Left in bed, Nurse notified Outcomes Score AM-PAC Score AM-PAC Inpatient Mobility Raw Score: 8 Mobility Inpatient CMS G-Code Modifier: CM Goals Encounter Problems Encounter Problems (Active) Balance Patient will maintain dynamic sitting balance with SBA when given moderate challenges in order to demonstrate improved postural control and prepare for out of bed mobility. (Not Progressing) Start: 11/15/22 Expected End: 11/29/22 Mobility Patient will propel the wheelchair for 50 ft and supervision in order to improve safety and independence with functional mobility. (Not Addressed) Start: 11/15/22 Expected End: 11/29/22 Transfers Patient will perform bed mobility with supervision in order to improve independence and prepare forout of bed mobility. (Progressing) Start: 11/15/22 Expected End: 11/29/22 Patient will complete functional transfer with sliding board with min assist bed to/from drop arm chair or wheelchair. (Not Progressing) Start: 11/15/22 Expected End: 11/29/22 Education Education Given To: Patient Education Provided: Goals, Plan of Care, Home Exercise Program, Functional Mobility Training Education Provided Comments: ALLI GILBERT; . Education Method: Verbal, Teach Back Barriers to Learning: None Education Outcome: Verbalized understanding, Demonstrated understanding, Continued education needed Therapy Time Individual Co-treatment Time In 1455 Time Out 1509 Minutes 14 Timed Code Treatment Minutes: 14 Minutes (Fa x1) Teresa Sandoval PTA * Pricila Ma, RD - 11/21/2022 11:33 AM EST Nutrition Assessment Type and Reason for Visit: Reassess Nutrition Recommendations/Plan: Would re-initiate previously ordered PO diet as medically feasible, 2000 calorie CHO Control would promote further/ongoing BG control as well as healthy weight loss which is clinically appropriate (as long as pt compliant/receptive). Continue to encourage intake of Premier protein drinks (brought in from home) at frequency of BID to further promote wound healing/improvement of skin integrity (without large amount of kcal), pt notreceptive to Ensure Max ONS (previously ordered); also encourage intake of iron-containing foods such as beef/meat, nuts and legumes, spinach/dark green vegetables, etc. (RD attached relevant handout to discharge paperwork). RD to monitor PO intake, weight, labs, fluid, & follow up weekly. Malnutrition Assessment: Malnutrition Status: At risk for malnutrition (Comment) (this RD noting at risk given ongoing hospitalization, possibility of appetite/PO intake fluctuations (given prolonged admission status), wouldcontinue to encourage intake of Premier protein drinks BID and compliance with diet principles) Context: Acute Illness Findings of the 6 clinical characteristics of malnutrition: Energy Intake: Mild decrease in energy intake (Comment) (mostly due to on/off PO vs NPO diet status(ongoing) however pt was on PO diet from last procedure (11/16) up until last night (pending OR again today)) Weight Loss: No significant weight loss (not overtly suspected when reviewing prior weights here and weights PEARL DIVER) Body Fat Loss: No significant body fat loss (per previous RD assessment) Muscle Mass Loss: No significant muscle mass loss (per previous RD assessment) Fluid Accumulation: Mild (per chart) 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 Nutrition Assessment: Pt with previously noted PMH (including asthma, obesity, HTN, FAY fibromyalgia, GERD, R BKA and recent L AKA on 10/31/2022) who initially presented with concern for infection in the LLE residual limb (noted at Ortho follow up where pt had erythema of the surgical site and they were concerned about developing cellulitis and possible deep tissue infection so pt was directed to go to ED); since beingadmitted pt has undergone several I&Ds (including on 11/11, 11/14 and 11/16) with further surgery planned for this date (pt made NPO at midnight) for return to OR for additional I&D as well as possible closure vs continuing wound vac; pt noted to have increasing glucose labs however has no noted hx of DM, had periodically received dexamethasone which would exacerbate any underlying insulin resistance (however currently not receiving); Hematology was consulted here given pt's bloodwork/labs, pt had been taking iron supplements pre-op, noted to have chronic microcytic anemia with low iron,occult stool was ordered (came back negative) however anemia noted to be largely stable (spsect some blood loss during repeat OR for I&Ds), PO iron supplement re-started; appears pt prefers for discharge to be home with homecare, pt also has son who lives with her and other family who can provide assistance; while on PO diet (previously ordered CHO Control diet to promote BG control) pt with noted good PO intakes; per prior RD assessment, pt dislikes Ensure Max ONS, prefers Premier protein f rom home. Correction to last RD note- pt with L AKA and prior R BKA (per chart review). Nutrition Related Findings: Abd WDL, last BM 11/20, FOBT negative; +1 BLE edema; medications reviewed (no steroid currently); labs: BG (117), Hemoglobin (8.6), iron/anemia work-up noted Wound Type: Surgical Incision, Wound Vac (s/p several/repeat I&D with further intervention planned today) Current Nutrition Therapies: NPO diet NPO except: Sips of Water with Meds Current Oral Intake Average Meal Intake: NPO (for OR this date, prior intakes 100%) Average Supplements Intake: NPO (pt noted to prefer Premier protein drinks brought in from home) Anthropometric Measures: Height: 170.2 cm (5' 7.01) Current Body Weight: (357# was last weight documented by RD on 11/17) Admission Body Weight: 157 kg (346 lb 2 oz) (11/10 stated) Usual Body Weight: (369# on 10/17/22, 358# on 08/31/22, 210# on 05/16/22) % Weight Change (Calculated): 3.3 [place] Body Weight (lbs) (Calculated): 135 lbs [place] Body Weight (Kg) (Calculated): 61 kg % [place] Body Weight (Calculated): 264.7 % BMI (kg/m2) (Calculated): 56 Weight Adjustment For: Amputation (multiple) % Weight Adjustment: 5.9 - BKA, 10.1 - AKA Total Adjusted Percentage (Calculated): 16 Adjusted [place] Body Weight (lbs) (Calculated): 107.7 lbs Adjusted [place] Body Weight (kg) (Calculated): 48.95 kg Adjusted BMI (kg/m2) (Calculated): 67.3 BMI Categories: Obese Class 3 (BMI 40.0 or greater) Nutrition Interventions: Nutrition Education/Counseling: Education not appropriate Coordination of Nutrition Care: Continue to monitor while inpatient Plan of Care discussed with: N/A Goals: Previous Goal Met: Progressing toward Goal(s) (per chart) Goals: PO intake 75% or greater (with stable labs (blood sugar) and provision of necessary protein and iron intake) Nutrition Monitoring and Evaluation: Behavioral-Environmental Outcomes: None Identified Food/Nutrient Intake Outcomes: Food and Nutrient Intake (as appropriate) Physical Signs/Symptoms Outcomes: Biochemical Data, Fluid Status or Edema, Meal Time Behavior, Skin, Weight Discharge Planning: Too soon to determine Pricila Ma RD Contact: Secure chat or *[phone] * Johnathon Chowdhury MD - 11/21/2022 9:54 AM EST Images from the original note were not included. Hospitalist Progress Note 11/21/[phone]: Please page [facility] night Hospitalist for any issues. Subjective: Admit [...] culture and its sensitivities. Returned to OR (11/14, 11/16) for repeat I&Ds, found to have need for additional I&D; wound vac continued. APS assisted with pain control due to escalating requirements following each return to the OR. Interval History: No overnight events. 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 ([facility]) 07/27/2020 Asthma Cellulitis Constipation Depression Fibromyalgia GERD (gastroesophageal reflux disease) Hx of right BKA ([facility]) ([facility]) Hypertension Morbidly obese ([facility]) ([facility]) 02/03/2019 BMI 50.52 On home O2 FAY treated with BiPAP Osteoarthritis Osteomyelitis of right foot ([facility]) SCHEDULED FOR THE SURGERY ON 02/11/2019 Seasonal allergies Shortness of breath URSULA (stress urinary incontinence, female) Vertigo Objective: Vitals: BP (!) 159/77 (BP Location: Right arm, Patient Position: Lying) Pulse 91 Temp 36.6 C (97.9 F) (Temporal) Resp 22 Ht 5' 7.01 (1.702 m) Wt (!) 357 lb 6.4 oz (162 kg) SpO2 98% BMI55.96 kg/m Pulse Ox: SpO2 Av.7 % Min: 95 % Max: 98 % Supplemental O2: room air General appearance: NAD, cooperative with exam, obese. Respiratory: CTAB with normal effort. Cardiovascular: RRR, no M/R/G. Peripheral pulses 2+ (upper extremities). Abdomen: Soft, NT/ND, NBS. Musculoskeletal: RLE with remote BKA, LLE with AKA and irrigation set, some edges of Tegaderm beginning to peel. Skin: Skin appropriately warm, turgor and color unremarkable. Wound LLE as noted above. Neurologic: Grossly neurologically intact. Answering questions & following directions appropriately. LABS: HEME: Recent Labs 11/20/22 0026 11/20/22 1237 11/21/22 0137 WBC 7.4 7.1 6.0 RBC 3.00* 3.33* 3.46* HGB 7.5* 8.5* 8.6* HCT 24.1* 26.6* 27.8* MCV 80.5 79.7* 80.2 RDW 21.7* 21.9* 22.3* PLT 431 422 432 CHEM: Recent Labs 11/20/22 0026 11/20/22 1237 11/21/22 0137 NA 135 135 136 K 4.4 4.2 4.3 CL 104 102 103 CO2 26 28 32* BUN 24* 20* 24* CREATININE 0.65 0.68 0.75 EGFR >90.0 >90.0 89.6 GLUCOSE 110* 104* 117* CALCIUM 8.3* 8.4 8.5 ANIONGAP 5 5 1* LIVER: No results for input(s): AST, ALT, BILITOT, ALKPHOS, ALBUMIN, PROT, GGT in the last 72 hours. COAG: Recent Labs 11/21/22 0137 PROTIME 10.3 INR 1.0 CARDIAC: No results for input(s): TROPONINI in the last 72 hours. No results found for: BNP Recent Labs 11/18/22 1201 11/18/22 1709 POCGLU 101* 86 No results for input(s): LACTATE in the last 72 hours. Lab Results Component Value Date TSH 2.406 11/20/2022 [id number] 325 11/20/2022 FOLATE 10.2 11/20/2022 Urine Culture: No results found for this or any previous visit. Blood Culture: No results found for this or any previous visit. Medications: Current Facility-Administered Medications: acetaminophen (Tylenol) tablet 1,000 mg, 1,000 mg, Oral, q8h, MITCH Pacheco CNP, 1,000 mg at 11/20/22 1854 albuterol (2.5 MG/3ML) 0.083% nebulizer solution 2.5 mg, 2.5 mg, Nebulization, q4h PRN, John Hebert MD amitriptyline (Elavil) tablet 25 mg, 25 mg, Oral, Nightly, John Hebert MD, 25 mg at 11/20/222002 bisacodyl (Dulcolax) EC tablet 5 mg, 5 mg, Oral, Daily, César Schneider MD, 5 mg at 11/20/22 0600 budesonide (Pulmicort) 0.5 MG/2ML nebulizer solution 0.5 mg, 0.5 mg, Nebulization, BID PRN, John Hebert MD citalopram (CeleXA) tablet 20 mg, 20 mg, Oral, Daily, John Hebert MD, 20 mg at 11/21/22 0747 cyclobenzaprine (Flexeril) tablet 10 mg, 10 mg, Oral, Nightly, John Hebert MD, 10 mg at 11/20/222002 ergocalciferol (Vitamin D2) capsule 1.25 mg, 50,000 Units, Oral, Weekly, John Hebert MD, 1.25 mg at 11/19/22 0834 fluticasone (Flonase) nasal spray 1 spray, 1 spray, Each Nostril, BID, John Hebert MD, 1 spray at11/21/22 0748 gabapentin (Neurontin) capsule 100 mg, 100 mg, Oral, TID, Kierra Monaco APRN - DATA MINING ANALYST, 100 mg at 11/21/22 0747 HYDROmorphone (Dilaudid) injection 0.25 mg, 0.25 mg, IntraVENous, q4h PRN OR HYDROmorphone (Dilaudid) injection 0.5 mg, 0.5 mg, IntraVENous, q4h PRN, MITCH Pacheco DATA MINING ANALYST, 0.5 mg at 935 influenza vac subunit quadrivalent (Flucelvax) injection 0.5 mL, 0.5 mL, IntraMUSCular, Once, MD Saravanan Lidocaine 4 % patch 1 patch, 1 patch, Topical, Daily, John Hebert MD, 1 patch at 11/13/22 0935 LORazepam (Ativan) tablet 0.5 mg, 0.5 mg, Oral, q8h PRN, Johnathon Chowdhury MD mometasone-formoterol (Dulera 100) 100-5 MCG/ACT inhaler 2 puff, 2 puff, Inhalation, BID, John Hebert MD, 2 puff at 11/21/22 0749 naloxone (Narcan) 0.4 mg in 0.9% sodium chloride 10 mL syringe, , IntraVENous, PRN, MITCH Pacheco CNP ondansetron ODT (Zofran-ODT) disintegrating tablet 4 mg, 4 mg, Oral, q8h PRN OR ondansetron (Zofran) injection 4 mg, 4 mg, IntraVENous, q6h PRN, John Hebert MD, 4 mg at 11/16/22 1819 oxyCODONE (Roxicodone) immediate release tablet 10 mg, 10 mg, Oral, q4h PRN OR oxyCODONE (Roxicodone) immediate release tablet 15 mg, 15 mg, Oral, q4h PRN, MITCH Pacheco CNP, 15 mg at 11/21/22 0747 pantoprazole (ProtoNix) EC tablet 20 mg, 20 mg, Oral, qAM AC, John Hebert MD, 20 mg at 11/20/22 0600 piperacillin-tazobactam (Zosyn) IVPB 3,375 mg, 3,375 mg, IntraVENous, q8h, Johnathon Chowdhury MD, Last Rate: 12.5 mL/hr at 11/21/22 0700, 3,375 mg at 11/21/22 0700 polyethylene glycol (PEG) 3350 (Miralax) packet 17 g, 17 g, Oral, Daily, John Hebert MD, 17 g at 11/21/22 0747 senna-docusate sodium (Senokot-S) 8.6-50 MG tablet 2 tablet, 2 tablet, Oral, Nightly, John Hebert MD, 2 tablet at 11/20/222002 sodium chloride 0.9 % infusion, 5-250 mL/hr, IntraVENous, PRN, John Hebert MD sodium chloride 0.9% (NS) flush 5-40 mL, 5-40 mL, IntraVENous, q12h, John Hebert MD, 10 mL at 11/21/22 0700 sodium chloride 0.9% (NS) flush 5-40 mL, 5-40 mL, IntraVENous, PRN, John Hebert MD tiotropium (Spiriva) 18 MCG per inhalation capsule 18 mcg, 1 capsule, Inhalation, Daily, John Hebert MD, 18 mcg at 11/21/22 0747 Medical Decision Making LLE post-op infection, s/p I&D and wound vac (11/11, 11/14, 11/16) Wound culture in progress Continue IV Rocephin, switch to cefdinir at discharge, plan for 10 days of therapy plan to return to OR 11/21 for next I&D, possible closure NWB LLE pain control (acetaminophen PO prn, oxycodone PO prn, hydromorphone IV prn; gabapentin) Continue Flexeril p.o. nightly APS assisting, appreciate recs On the schedule to have another I&D today Post-op Acute blood loss anemia Anemia patient stated that she had 2 units of blood 2 weeks ago prior to procedure Iron deficiency anemia Vitamin B12 is borderline low Folate within normal limit Iron panel low Occult blood in stool negative Consult heme-onc for comanagement, pending recommendations Consider blood transfusion if hemoglobin drops below 7, discussed with the patient about risk and benefits of blood transfusion if hemoglobin drops below 7 and she is okay with blood transfusion if needed Start the patient on iron supplement on 11/21 Asthma, stable Continue Dulera and Spiriva HTN blood pressure controlled off blood pressure medications Continue monitor blood pressure per protocol Class III obesity due to excessive calories FAY mild be related to obesity Weight loss CPAP MDD History of depressive disorder, stable History of anxiety not controlled on 11/21 Continue amitriptyline Start Ativan 0.5 mg every 8 hours as needed - - - PT/OT/CM/SW - delirium precautions: increase activity - DVT prophylaxis: encourage ambulation (encourage activity d/t amputee status) Complexity: Acute, complicated injury (MOD). Multiple stable chronic illnesses (MOD). Risk: Use of parenteral controlled substances (HIGH). Advance Directive: Full Code Anticipated Discharge - Date - TBD - Location -halfway facility - Pending the following - at least one more I&D (on 11/21), STEFAN CHOWDHURY MD Division of Hospitalist Medicine Inpatient Medical Services/[facility] [place] MDM: Medium ([id number]) * Maximino Aceves JD, MD - 11/21/2022 6:53 AM EST Images from the original note were not included. Orthopedic Progress Note Name: Siobhan Haas Date:11/21/2022 Attending:Johnathon Chowdhury MD Subjective Denies fevers/chills, light-headedness, or dizziness. Hoping that this is the last surgery. 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.] (BMI) Gastroesophageal reflux disease Hiatal hernia Callosity long term care pharmacist (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 antibiotics Left leg cellulitis Dehiscence of closure of skin, sequela Necrotizing soft tissue infection Infected wound Osteomyelitis ([facility]) Hematoma Cellulitis of right foot Post-op pain Osteomyelitis of right foot ([facility]) Open wound of right foot MSSA (methicillin susceptible Staphylococcus aureus) infection Right foot infection Hardware complicating wound infection (CMS/HCC) ([facility]) Right foot pain Postoperative pain Cellulitis Lymphedema Stump pain ([facility]) Abrasion of lower leg with infection, initial encounter PE (pulmonary thromboembolism) (HCC) Surgical wound infection HLD (hyperlipidemia) PAST SURGICAL [...] Right 02/11/2019 FOOT SURGERY Right 2019 IN [place] FOOT SURGERY Right 04/08/2019 I&D right foot [...] Right 05/06/2019 Right Below Knee Amputation (CPT 80105), #2 Excisional debridement right iliac crest (wound [...] Historical Provider, cholecalciferol (Vitamin D-3) 1.25 MG (58255 UT) capsule Take by mouth 1 (one) [...] MEDICATIONS Current Facility-Administered Medications: acetaminophen (Tylenol) tablet 1,000 mg, 1,000 mg, Oral, q8h, MITCH Pacheco CNP, 1,000 mg at 11/20/22 1854 albuterol (2.5 MG/3ML) 0.083% nebulizer solution 2.5 mg, 2.5 mg, Nebulization, q4h PRN, John Hebert MD amitriptyline (Elavil) tablet 25 mg, 25 mg, Oral, Nightly, John Hebert MD, 25 mg at 11/20/222002 bisacodyl (Dulcolax) EC tablet 5 mg, 5 mg, Oral, Daily, César Schneider MD, 5 mg at 11/20/22 0600 budesonide (Pulmicort) 0.5 MG/2ML nebulizer solution 0.5 mg, 0.5 mg, Nebulization, BID PRN, John Hebert MD citalopram (CeleXA) tablet 20 mg, 20 mg, Oral, Daily, John Hebert MD, 20 mg at 11/20/22 0808 cyclobenzaprine (Flexeril) tablet 10 mg, 10 mg, Oral, Nightly, John Hebert MD, 10 mg at 11/20/222002 ergocalciferol (Vitamin D2) capsule 1.25 mg, 50,000 Units, Oral, Weekly, John Hebert MD, 1.25 mg at 11/19/22 0834 fluticasone (Flonase) nasal spray 1 spray, 1 spray, Each Nostril, BID, John Hebert MD, 1 spray at11/20/222005 gabapentin (Neurontin) capsule 100 mg, 100 mg, Oral, TID, MITCH Pacheco CNP, 100 mg at 11/20/222002 HYDROmorphone (Dilaudid) injection 0.25 mg, 0.25 mg, IntraVENous, q4h PRN OR HYDROmorphone (Dilaudid) injection 0.5 mg, 0.5 mg, IntraVENous, q4h PRN, MITCH Pacheco CNP, 0.5 mg at 454 influenza vac subunit quadrivalent (Flucelvax) injection 0.5 mL, 0.5 mL, IntraMUSCular, Once, MD Saravanan Lidocaine 4 % patch 1 patch, 1 patch, Topical, Daily, John Hebert MD, 1 patch at 11/13/22 0935 mometasone-formoterol (Dulera 100) 100-5 MCG/ACT inhaler 2 puff, 2 puff, Inhalation, BID, John Hebert MD, 2 puff at 11/20/221999 naloxone (Narcan) 0.4 mg in 0.9% sodium chloride 10 mL syringe, , IntraVENous, PRN, MITCH Pacheco CNP ondansetron ODT (Zofran-ODT) disintegrating tablet 4 mg, 4 mg, Oral, q8h PRN OR ondansetron (Zofran) injection 4 mg, 4 mg, IntraVENous, q6h PRN, John Hebert MD, 4 mg at 11/16/22 181 oxyCODONE (Roxicodone) immediate release tablet 10 mg, 10 mg, Oral, q4h PRN OR oxyCODONE (Roxicodone) immediate release tablet 15 mg, 15 mg, Oral, q4h PRN, MITCH Pacheco CNP, 15 mg at 11/20/22 1854 pantoprazole (ProtoNix) EC tablet 20 mg, 20 mg, Oral, qAM AC, John Hebert MD, 20 mg at 11/20/22 0600 piperacillin-tazobactam (Zosyn) IVPB 3,375 mg, 3,375 mg, IntraVENous, q8h, Johnathon Chowdhury MD, Last Rate: 12.5 mL/hr at 11/21/22 0700, 3,375 mg at 11/21/22 0700 polyethylene glycol (PEG) 3350 (Miralax) packet 17 g, 17 g, Oral, Daily, John Hebert MD, 17 g at 11/20/22 0808 senna-docusate sodium (Senokot-S) 8.6-50 MG tablet 2 tablet, 2 tablet, Oral, Nightly, John Hebert MD, 2 tablet at 11/20/222002 sodium chloride 0.9 % infusion, 5-250 mL/hr, IntraVENous, PRN, John Hebert MD sodium chloride 0.9% (NS) flush 5-40 mL, 5-40 mL, IntraVENous, q12h, John Hebert MD, 10 mL at 11/21/22 0700 sodium chloride 0.9% (NS) flush 5-40 mL, 5-40 mL, IntraVENous, PRN, John Hebert MD tiotropium (Spiriva) 18 MCG per inhalation capsule 18 mcg, 1 capsule, Inhalation, Daily, John Hebert MD, 18 mcg at 11/18/22 0853 ALLERGIES: Amlodipine, Clonazepam, Ketamine, Lisinopril, and Vancomycin [...] Narrative Has been in rehab facility in [place] Lives alone, son close Friends help Social [...] systems reviewed and are negative VITALS: Vitals: 11/19/22 0730 11/20/22 0816 11/20/22 1319 11/20/22 2056 BP: 104/59 119/64 125/63 106/63 BP Location: Right arm Right arm Patient Position: Sitting Pulse: 74 80 86 85 Resp: 20 18 18 16 Temp: 36.4 C (97.5 F) 36.7 C (98.1 F) 36.7 C (98 F) 36.7 C (98 F) TempSrc: Temporal Oral Temporal Temporal SpO2: 96% 95% 97% 95% Weight: Height: PHYSICAL EXAM: GENERAL: Patient is well developed/well nourished in NAD. A+O x 4 MOOD AND AFFECT: Calm appropriate to situation GAIT AND STATION: Patient is in bed COORDINATION and BALANCE: Patient is grossly coordinated LYMPHADENOPATHY: none on examination of the affected extremity(s) LLE INSPECTION SKIN: Wound vacuum suction intact, cannister almost full. Malodorous fluid leaking from posterior dressing but wvac suction remains intact. NEUROLOGICAL: SILT intact to stump MOTOR: +hip flexion VASCULAR: Stump is warm and well-perfused LABS: CBC: Lab Results Component Value Date WBC 6.0 11/21/2022 RBC 3.46 (L) 11/21/2022 BMP: Lab Results Component Value Date GLUCOSE 117 (H) 11/21/2022 CO2 32 (H) 11/21/2022 BUN 24 (H) 11/21/2022 CREATININE 0.75 11/21/2022 CALCIUM 8.5 11/21/2022 PT/INR: Lab Results Component Value Date INR 1.0 11/21/2022 Type and Screen: Lab Results Component Value Date RH POS 11/21/2022 CRP: No results found for: CRP ESR: No results found for: SEDRATE HgBA1c: No components found for: LABA1C The above labs were reviewed by me. Assessment Siobhan is a 62 y.o.female with L AKA stump SSI, s/p I&D+ VAC 11/11, rpt I&D 11/14 and 11/16 Plan -RTOR for rpt LLE I&D, possible closure versus vac today -Consented for above procedure -Added -NPO -Cx+ E faecalis and Enterobacter -Maintain wound vac, monitor output; no need to change wound vacuum, as this will be removed intraoperatively -vac via set to 40 mL per soak -Multimodal pain control -NWB LLE -Elevate -On zosyn but ID does not appear to have been consulted so will place consult -Cleared -PT/OT -okay for diet -Hold DVT ppx -Pain/medical management per primary -Ortho to follow. Please page on-call resident with questions/concerns * Teresa Sandoval PTA - 11/20/2022 2:15 PM EST Physical Therapy Pt very sleepy upon arrival and had difficulty staying awake during conversation. Will check back as schedule permits. * Johnathon Chowdhury MD - 11/20/2022 11:21 AM EST Images from the original note were not included. Hospitalist Progress Note 11/20/[phone]: Please page [facility] night Hospitalist for any issues. Subjective: Admit Date: 11/10/2022 PCP: jO Maddox Room#: [id number] Brief hospital course: [...] culture and its sensitivities. Returned to OR (11/14, 11/16) for repeat I&Ds, found to have need for additional I&D; wound vac continued. APS assisted with pain control due to escalating requirements following each return to the OR. Interval History: No overnight events. 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 ([facility]) 07/27/2020 Asthma Cellulitis Constipation Depression Fibromyalgia GERD (gastroesophageal reflux disease) Hx of right BKA ([facility]) ([facility]) Hypertension Morbidly obese ([facility]) ([facility]) 02/03/2019 BMI 50.52 On home O2 FAY treated with BiPAP Osteoarthritis Osteomyelitis of right foot ([facility]) SCHEDULED FOR THE SURGERY ON 02/11/2019 Seasonal allergies Shortness of breath URSULA (stress urinary incontinence, female) Vertigo Objective: Vitals: BP 119/64 Pulse 80 Temp 36.7 C (98.1 F) (Oral) Resp 18 Ht 5' 7.01 (1.702 m) Wt (!) 357 lb 6.4 oz (162 kg) SpO2 95% BMI 55.96 kg/m Pulse Ox: SpO2 Av % Min: 95 % Max: 95 % Supplemental O2: room air General appearance: NAD, cooperative with exam, obese. Respiratory: CTAB with normal effort. Cardiovascular: RRR, no M/R/G. Peripheral pulses 2+ (upper extremities). Abdomen: Soft, NT/ND, NBS. Musculoskeletal: RLE with remote BKA, LLE with AKA and irrigation set, some edges of Tegaderm beginning to peel. Skin: Skin appropriately warm, turgor and color unremarkable. Wound LLE as noted above. Neurologic: Grossly neurologically intact. Answering questions & following directions appropriately. LABS: HEME: Recent Labs 11/18/22 0041 11/19/22 0241 11/20/22 0026 WBC 9.3 8.4 7.4 RBC 3.30* 3.41* 3.00* HGB 8.6* 8.7* 7.5* HCT 26.6* 27.0* 24.1* MCV 80.5 79.2* 80.5 RDW 22.0* 22.1* 21.7* PLT 413 453* 431 CHEM: Recent Labs 11/18/22 0041 11/19/22 0241 11/20/22 0026 NA 137 136 135 K 3.8 4.4 4.4 CL 104 103 104 CO2 26 31* 26 BUN 29* 25* 24* CREATININE 0.72 0.67 0.65 EGFR >90.0 >90.0 >90.0 GLUCOSE 120* 96 110* CALCIUM 8.4 8.8 8.3* ANIONGAP 7 3 5 LIVER: No results for input(s): AST, ALT, BILITOT, ALKPHOS, ALBUMIN, PROT, GGT in the last 72 hours. COAG: No results for input(s): PROTIME, INR, PTT in the last 72 hours. CARDIAC: No results for input(s): TROPONINI in the last 72 hours. No results found for: BNP Recent Labs 11/17/22 1137 11/17/22 1608 11/17/22 2035 11/18/22 0649 11/18/22 1201 11/18/22 1709 POCGLU 117* 102* 100 99 101* 86 No results for input(s): LACTATE in the last 72 hours. No results found for: DDIMER, PROCAL, COVID19, HGBA1C, TSH, [id number], FOLATE, CHOL, TRIG, HDL, LDLCALC Urine Culture: No results found for this or any previous visit. Blood Culture: No results found for this or any previous visit. Medications: Current Facility-Administered Medications: acetaminophen (Tylenol) tablet 1,000 mg, 1,000 mg, Oral, q8h, Kierra Monaco, SUPERVISOR HAND SILVERING - DATA MINING ANALYST, 1,000 mg at 11/20/22 0327 albuterol (2.5 MG/3ML) 0.083% nebulizer solution 2.5 mg, 2.5 mg, Nebulization, q4h PRN, John Hebert MD amitriptyline (Elavil) tablet 25 mg, 25 mg, Oral, Nightly, John Hebert MD, 25 mg at 11/19/22 0538 bisacodyl (Dulcolax) EC tablet 5 mg, 5 mg, Oral, Daily, César Schneider MD, 5 mg at 11/20/22 0600 budesonide (Pulmicort) 0.5 MG/2ML nebulizer solution 0.5 mg, 0.5 mg, Nebulization, BID PRN, John Hebert MD cefTRIAXone (Rocephin) 2,000 mg in dextrose 5 % 50 mL IVPB Mini-Bag Plus, 2,000 mg, IntraVENous, q24h, John Hebert MD, Stopped at 11/19/22 1716 citalopram (CeleXA) tablet 20 mg, 20 mg, Oral, Daily, John Hebert MD, 20 mg at 11/20/22 0808 cyclobenzaprine (Flexeril) tablet 10 mg, 10 mg, Oral, Nightly, John Hebert MD, 10 mg at 11/19/22 2157 ergocalciferol (Vitamin D2) capsule 1.25 mg, 50,000 Units, Oral, Weekly, John Hebert MD, 1.25 mg at 11/19/22 0834 fluticasone (Flonase) nasal spray 1 spray, 1 spray, Each Nostril, BID, John Hebert MD, 1 spray at11/20/22 0809 gabapentin (Neurontin) capsule 100 mg, 100 mg, Oral, TID, MITCH Pacheco CNP, 100 mg at 11/20/22 0808 HYDROmorphone (Dilaudid) injection 0.25 mg, 0.25 mg, IntraVENous, q4h PRN OR HYDROmorphone (Dilaudid) injection 0.5 mg, 0.5 mg, IntraVENous, q4h PRN, MITCH Pacheco CNP, 0.5 mg at 807 influenza vac subunit quadrivalent (Flucelvax) injection 0.5 mL, 0.5 mL, IntraMUSCular, Once, MD Saravanan Lidocaine 4 % patch 1 patch, 1 patch, Topical, Daily, John Hebert MD, 1 patch at 11/13/22 0935 mometasone-formoterol (Dulera 100) 100-5 MCG/ACT inhaler 2 puff, 2 puff, Inhalation, BID, John Hebert MD, 2 puff at 11/20/22 0810 naloxone (Narcan) 0.4 mg in 0.9% sodium chloride 10 mL syringe, , IntraVENous, PRN, Kierra Monaco APRN - [place] ondansetron ODT (Zofran-ODT) disintegrating tablet 4 mg, 4 mg, Oral, q8h PRN OR ondansetron (Zofran) injection 4 mg, 4 mg, IntraVENous, q6h PRN, John Hebert MD, 4 mg at 11/16/22 1819 oxyCODONE (Roxicodone) immediate release tablet 10 mg, 10 mg, Oral, q4h PRN OR oxyCODONE (Roxicodone) immediate release tablet 15 mg, 15 mg, Oral, q4h PRN, MITCH Pacheco CNP, 15 mg at 11/20/22 0559 pantoprazole (ProtoNix) EC tablet 20 mg, 20 mg, Oral, qAM AC, John Hebert MD, 20 mg at 11/20/22 0600 polyethylene glycol (PEG) 3350 (Miralax) packet 17 g, 17 g, Oral, Daily, John Hebert MD, 17 g at 11/20/22 0808 senna-docusate sodium (Senokot-S) 8.6-50 MG tablet 2 tablet, 2 tablet, Oral, Nightly, John Hebert MD, 2 tablet at 11/19/22 2157 sodium chloride 0.9 % infusion, 5-250 mL/hr, IntraVENous, PRN, John Hebert MD sodium chloride 0.9% (NS) flush 5-40 mL, 5-40 mL, IntraVENous, q12h, John Hebert MD, 10 mL at 11/20/22 0600 sodium chloride 0.9% (NS) flush 5-40 mL, 5-40 mL, IntraVENous, PRN, John Hebert MD tiotropium (Spiriva) 18 MCG per inhalation capsule 18 mcg, 1 capsule, Inhalation, Daily, John Hebert MD, 18 mcg at 11/18/22 0853 Medical Decision Making LLE post-op infection, s/p I&D and wound vac (11/11, 11/14, 11/16) Wound culture in progress Continue IV Rocephin, switch to cefdinir at discharge, plan for 10 days of therapy plan to return to OR 11/21 for next I&D, possible closure NWB LLE pain control (acetaminophen PO prn, oxycodone PO prn, hydromorphone IV prn; gabapentin) Continue Flexeril p.o. nightly APS assisting, appreciate recs Post-op Acute blood loss anemia Anemia patient stated that she had 2 units of blood 2 weeks ago prior to procedure Order full anemia work-up Vitamin B12 Folate Iron panel Occult blood in stool Consult heme-onc for comanagement Consider blood transfusion if hemoglobin drops below 7, discussed with the patient about risk and benefits of blood transfusion if hemoglobin drops below 7 and she is okay with blood transfusion if needed Asthma, stable Continue Dulera and Spiriva HTN blood pressure controlled off blood pressure medications Continue monitor blood pressure per protocol Class III obesity due to excessive calories FAY mild be related to obesity Weight loss CPAP MDD History of depressive disorder, stable Continue amitriptyline - - - PT/OT/CM/SW - delirium precautions: increase activity - DVT prophylaxis: encourage ambulation (encourage activity d/t amputee status) Complexity: Acute, complicated injury (MOD). Multiple stable chronic illnesses (MOD). Risk: Use of parenteral controlled substances (HIGH). Advance Directive: Full Code Anticipated Discharge - Date - TBD - Location -halfway facility - Pending the following - at least one more I&D (on 11/21), STEFAN CHOWDHURY MD Division of Hospitalist Medicine Inpatient Medical Services/[facility] [place] MDM: Medium ([id number]) * César Schneider MD - 11/19/2022 7:19 AM EST Images from the original note were not included. Hospitalist Progress Note 11/19/[id number]: Please page [facility] night Hospitalist for any issues. Subjective: Admit Date: 11/10/2022 PCP: Oj Maddox Room#: [id number] Brief hospital course: Patient admitted 11/10/2022 [...] culture and its sensitivities. Returned to OR (11/14, 11/16) for repeat I&Ds, found to have need for additional I&D; wound vac continued. APS assisted with pain control due to escalating requirements following each return to the OR. Interval History: No overnight events. Had another BM, feels that current bowel regimen is effective. Slightly sad today due to relationship issue. 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 ([facility]) 07/27/2020 Asthma Cellulitis Constipation Depression Fibromyalgia GERD (gastroesophageal reflux disease) Hx of right BKA ([facility]) ([facility]) Hypertension Morbidly obese ([facility]) ([facility]) 02/03/2019 BMI 50.52 On home O2 FAY treated with BiPAP Osteoarthritis Osteomyelitis of right foot ([facility]) SCHEDULED FOR THE SURGERY ON 02/11/2019 Seasonal allergies Shortness of breath URSULA (stress urinary incontinence, female) Vertigo Objective: Vitals: BP 120/77 Pulse 78 Temp 36.7 C (98 F) (Temporal) Resp 18 Ht 5' 7.01 (1.702 m) Wt(!) 357 lb 6.4 oz (162 kg) SpO2 97% BMI 55.96 kg/m Pulse Ox: SpO2 Av % Min: 93 % Max: 97 % Supplemental O2: room air General appearance: NAD, cooperative with exam, obese. Respiratory: CTAB with normal effort. Cardiovascular: RRR, no M/R/G. Peripheral pulses 2+ (upper extremities). Abdomen: Soft, NT/ND, NBS. Musculoskeletal: RLE with remote BKA, LLE with AKA and irrigation set, some edges of Tegaderm beginning to peel. Skin: Skin appropriately warm, turgor and color unremarkable. Wound LLE as noted above. Neurologic: Grossly neurologically intact. Answering questions & following directions appropriately. LABS: HEME: Recent Labs 11/17/2224111/18/224011/19/22240 WBC 8.8 9.3 8.4 RBC 3.59* 3.30* 3.41* HGB 9.0* 8.6* 8.7* HCT 29.1* 26.6* 27.0* MCV 81.0 80.5 79.2* RDW 22.3* 22.0* 22.1* PLT 405 413 453* CHEM: Recent Labs 11/17/2224111/18/224011/19/22240 NA 135 137 136 K 4.8 3.8 4.4 CL 101 104 103 CO2 30 26 31* BUN 22* 29* 25* CREATININE 0.67 0.72 0.67 EGFR >90.0 >90.0 >90.0 GLUCOSE 211* 120* 96 CALCIUM 8.8 8.4 8.8 ANIONGAP 5 7 3 LIVER: No results for input(s): AST, ALT, BILITOT, ALKPHOS, ALBUMIN, PROT, GGT in the last 72 hours. COAG: No results for input(s): PROTIME, INR, PTT in the last 72 hours. CARDIAC: No results for input(s): TROPONINI in the last 72 hours. No results found for: BNP Recent Labs 11/17/22 1137 11/17/22 1608 11/17/22 2035 11/18/22 0649 11/18/22 1201 11/18/22 1709 POCGLU 117* 102* 100 99 101* 86 No results for input(s): LACTATE in the last 72 hours. Lab Results Component Value Date HGBA1C 5.4 11/17/2022 Urine Culture: No results found for this or any previous visit. Blood Culture: No results found for this or any previous visit. Medications: Current Facility-Administered Medications: acetaminophen (Tylenol) tablet 1,000 mg, 1,000 mg, Oral, q8h, MITCH Pacheco CNP, 1,000 mg at 11/19/22 0227 albuterol (2.5 MG/3ML) 0.083% nebulizer solution 2.5 mg, 2.5 mg, Nebulization, q4h PRN, John Hebert MD amitriptyline (Elavil) tablet 25 mg, 25 mg, Oral, Nightly, John Hebert MD, 25 mg at 11/18/222030 bisacodyl (Dulcolax) EC tablet 5 mg, 5 mg, Oral, Daily, César Schneider MD, 5 mg at 11/19/22 0544 budesonide (Pulmicort) 0.5 MG/2ML nebulizer solution 0.5 mg, 0.5 mg, Nebulization, BID PRN, John Hebert MD cefTRIAXone (Rocephin) 2,000 mg in dextrose 5 % 50 mL IVPB Mini-Bag Plus, 2,000 mg, IntraVENous, q24h, John Hebert MD, Stopped at 11/18/22 1831 citalopram (CeleXA) tablet 20 mg, 20 mg, Oral, Daily, John Hebert MD, 20 mg at 11/18/22 0853 cyclobenzaprine (Flexeril) tablet 10 mg, 10 mg, Oral, Nightly, John Hebert MD, 10 mg at 11/18/22 2030 ergocalciferol (Vitamin D2) capsule 1.25 mg, 50,000 Units, Oral, Weekly, John Hebert MD, 1.25 mg at 11/12/22 1047 fluticasone (Flonase) nasal spray 1 spray, 1 spray, Each Nostril, BID, John Hebert MD, 1 spray at11/18/222030 gabapentin (Neurontin) capsule 100 mg, 100 mg, Oral, TID, MITCH Pacheco CNP, 100 mg at 11/18/222204 HYDROmorphone (Dilaudid) injection 0.25 mg, 0.25 mg, IntraVENous, q4h PRN OR HYDROmorphone (Dilaudid) injection 0.5 mg, 0.5 mg, IntraVENous, q4h PRN, MITCH Pacheco CNP, 0.5 mg at influenza vac subunit quadrivalent (Flucelvax) injection 0.5 mL, 0.5 mL, IntraMUSCular, Once, MD Saravanan Lidocaine 4 % patch 1 patch, 1 patch, Topical, Daily, John Hebert MD, 1 patch at 11/13/22 0935 mometasone-formoterol (Dulera 100) 100-5 MCG/ACT inhaler 2 puff, 2 puff, Inhalation, BID, John Hebert MD, 2 puff at 11/18/222030 naloxone (Narcan) 0.4 mg in 0.9% sodium chloride 10 mL syringe, , IntraVENous, PRN, MITCH Pacheco CNP ondansetron ODT (Zofran-ODT) disintegrating tablet 4 mg, 4 mg, Oral, q8h PRN OR ondansetron (Zofran) injection 4 mg, 4 mg, IntraVENous, q6h PRN, John Hebert MD, 4 mg at 11/16/22 181 oxyCODONE (Roxicodone) immediate release tablet 10 mg, 10 mg, Oral, q4h PRN OR oxyCODONE (Roxicodone) immediate release tablet 15 mg, 15 mg, Oral, q4h PRN, MITCH Pacheco CNP, 15 mg at 11/19/22 0544 pantoprazole (ProtoNix) EC tablet 20 mg, 20 mg, Oral, qAM AC, John Hebert MD, 20 mg at 11/19/22 0606 polyethylene glycol (PEG) 3350 (Miralax) packet 17 g, 17 g, Oral, Daily, John Hebert MD, 17 g at 11/18/22 0852 senna-docusate sodium (Senokot-S) 8.6-50 MG tablet 2 tablet, 2 tablet, Oral, Nightly, John Hebert MD, 2 tablet at 11/18/222030 sodium chloride 0.9 % infusion, 5-250 mL/hr, IntraVENous, PRN, John Hebert MD sodium chloride 0.9% (NS) flush 5-40 mL, 5-40 mL, IntraVENous, q12h, John Hebert MD, 10 mL at 11/19/22 0607 sodium chloride 0.9% (NS) flush 5-40 mL, 5-40 mL, IntraVENous, PRN, John Hebert MD tiotropium (Spiriva) 18 MCG per inhalation capsule 18 mcg, 1 capsule, Inhalation, Daily, John Hebert MD, 18 mcg at 11/18/22 0853 Medical Decision Making Acute, acute on chronic, unstable/uncontrolled chronic problems: LLE post-op infection, s/p I&D and wound vac (11/11, 11/14, 11/16) Post-op blood loss anemia, stable Stable chronic problems affecting care, new non-acute diagnoses: Asthma HTN Class III obesity FAY MDD As a result of the above findings & factors, the following mgmt was pursued: - ortho consulted, appreciate recs - plan to return to OR 11/21 for next I&D, possible closure - NWB LLE - pain control (acetaminophen PO prn, oxycodone PO prn, hydromorphone IV prn; gabapentin) - APS assisting, appreciate recs - x2 doses of hydromorphone in past 24-hr - antibiotic - CTX (11/13-present); switch to [...] Risk: Use of parenteral controlled substances (HIGH). Advance Directive: Full Code Anticipated Discharge - Date - TBD - Location - Home vs. Skilled Facility - Pending the following - at least one more I&D (on 11/21), CM to work on new placement on Sunday César Schneider MD Division of Hospitalist Medicine Inpatient Medical Services/[facility] [place] MDM: Medium ([id number]) * Gaviota Fuller MD - 11/18/2022 3:09 PM EST Images from the original note were not included. Orthopedic Progress Note Name: Siobhan Haas Date:11/18/2022 Attending:César Schneider MD Subjective Patient had difficulty sleeping last night due to pain. She understands and agrees with the plan toproceed to OR on 11/21 for repeat I&D of her left lower extremity surgical site infection. All questions were answered. She denies any fevers or chills, excessive drainage from the vac. 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 ([facility]) Cellulitis of lower leg Back pain Tear of peroneal tendon Depressive disorder Hemorrhage of rectum and anus HTN (hypertension) Pansystolic murmur Chest wall pain Asthma Asthma with acute exacerbation Pain from implanted hardware Obstructive sleep apnea syndrome Chronic obstructive lung disease (HCC) Morbid obesity (CMS/HCC) ([facility]) Migraine headache Vitamin D deficiency Viral upper respiratory tract infection 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[facility]) Swelling of left lower extremity Shortness of breath Seasonal allergies Superficial incisional surgical site infection Rheumatoid arthritis ([facility]) Restless legs syndrome Anxiety Arthritis of right [...] (BMI) Gastroesophageal reflux disease Hiatal hernia Callosity long term care pharmacist (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 antibiotics Left leg cellulitis Dehiscence of closure of skin, sequela Necrotizing soft tissue infection Infected wound Osteomyelitis ([facility]) Hematoma Cellulitis of right foot Post-op pain Osteomyelitis of right foot ([facility]) Open wound of right foot MSSA (methicillin susceptible Staphylococcus aureus) infection Right foot infection Hardware complicating wound infection (CMS/HCC) ([facility]) Right foot pain Postoperative pain Cellulitis Lymphedema Stump pain ([facility]) Abrasion of lower leg with infection, initial encounter PE (pulmonary thromboembolism) ([facility]) Surgical wound infection HLD (hyperlipidemia) PAST SURGICAL [...] Right 02/11/2019 FOOT SURGERY Right 2019 IN [place] FOOT SURGERY Right 04/08/2019 I&D right foot [...] Right 05/06/2019 Right Below Knee Amputation (CPT 69345), #2 Excisional debridement right iliac crest (wound [...] Historical Provider, cholecalciferol (Vitamin D-3) 1.25 MG (96391 UT) capsule Take by mouth 1 (one) [...] MEDICATIONS Current Facility-Administered Medications: acetaminophen (Tylenol) tablet 1,000 mg, 1,000 mg, Oral, q8h, Kierra Monaco APRN - DATA MINING ANALYST, 1,000 mg at 11/18/22 1105 albuterol (2.5 MG/3ML) 0.083% nebulizer solution 2.5 mg, 2.5 mg, Nebulization, q4h PRN, John Hebert MD amitriptyline (Elavil) tablet 25 mg, 25 mg, Oral, Nightly, John Hebert MD, 25 mg at 11/17/222040 bisacodyl (Dulcolax) EC tablet 5 mg, 5 mg, Oral, Daily, César Schneider MD, 5 mg at 11/18/22 110 budesonide (Pulmicort) 0.5 MG/2ML nebulizer solution 0.5 mg, 0.5 mg, Nebulization, BID PRN, John Hebert MD cefTRIAXone (Rocephin) 2,000 mg in dextrose 5 % 50 mL IVPB Mini-Bag Plus, 2,000 mg, IntraVENous, q24h, John Hebert MD, Stopped at 11/17/22 1713 citalopram (CeleXA) tablet 20 mg, 20 mg, Oral, Daily, John Hebert MD, 20 mg at 11/18/22 0853 cyclobenzaprine (Flexeril) tablet 10 mg, 10 mg, Oral, Nightly, John Hebert MD, 10 mg at 11/17/22 203 ergocalciferol (Vitamin D2) capsule 1.25 mg, 50,000 Units, Oral, Weekly, John Hebert MD, 1.25 mg at 11/12/22 1047 fluticasone (Flonase) nasal spray 1 spray, 1 spray, Each Nostril, BID, John Hebert MD, 1 spray at11/18/22 0853 gabapentin (Neurontin) capsule 100 mg, 100 mg, Oral, TID, MITCH Pacheco CNP, 100 mg at 11/18/22 0853 HYDROmorphone (Dilaudid) injection 0.25 mg, 0.25 mg, IntraVENous, q4h PRN OR HYDROmorphone (Dilaudid) injection 0.5 mg, 0.5 mg, IntraVENous, q4h PRN, MITCH Pacheco CNP, 0.5 mg at 346 influenza vac subunit quadrivalent (Flucelvax) injection 0.5 mL, 0.5 mL, IntraMUSCular, Once, MD Saravanan Lidocaine 4 % patch 1 patch, 1 patch, Topical, Daily, John Hebert MD, 1 patch at 11/13/22 0935 mometasone-formoterol (Dulera 100) 100-5 MCG/ACT inhaler 2 puff, 2 puff, Inhalation, BID, John Hebert MD, 2 puff at 11/18/22 0853 naloxone (Narcan) 0.4 mg in 0.9% sodium chloride 10 mL syringe, , IntraVENous, PRN, Kierra Monaco APRN - [place] ondansetron ODT (Zofran-ODT) disintegrating tablet 4 mg, 4 mg, Oral, q8h PRN OR ondansetron (Zofran) injection 4 mg, 4 mg, IntraVENous, q6h PRN, John Hebert MD, 4 mg at 11/16/22 1819 oxyCODONE (Roxicodone) immediate release tablet 10 mg, 10 mg, Oral, q4h PRN OR oxyCODONE (Roxicodone) immediate release tablet 15 mg, 15 mg, Oral, q4h PRN, MITCH Pacheco CNP, 15 mg at 11/18/22 1109 pantoprazole (ProtoNix) EC tablet 20 mg, 20 mg, Oral, qAM AC, John Hebert MD, 20 mg at 11/18/22 0607 polyethylene glycol (PEG) 3350 (Miralax) packet 17 g, 17 g, Oral, Daily, John Hebert MD, 17 g at 11/18/22 0852 senna-docusate sodium (Senokot-S) 8.6-50 MG tablet 2 tablet, 2 tablet, Oral, Nightly, John Hebert MD, 2 tablet at 11/17/22 2038 sodium chloride 0.9 % infusion, 5-250 mL/hr, IntraVENous, PRN, John Hebert MD sodium chloride 0.9% (NS) flush 5-40 mL, 5-40 mL, IntraVENous, q12h, John Hebert MD, 10 mL at 11/18/22 0700 sodium chloride 0.9% (NS) flush 5-40 mL, 5-40 mL, IntraVENous, PRN, John Hebert MD tiotropium (Spiriva) 18 MCG per inhalation capsule 18 mcg, 1 capsule, Inhalation, Daily, John Hebert MD, 18 mcg at 11/18/22 0853 ALLERGIES: Amlodipine, Clonazepam, Ketamine, Lisinopril, and Vancomycin [...] Narrative Has been in rehab facility in [place] Lives alone, son close Friends help Social [...] systems reviewed and are negative VITALS: Vitals: 11/17/22 1253 11/17/22 1348 11/17/22201411/18/22 0827 BP: 124/60 111/60 112/56 BP Location: Right arm Right arm Patient Position: Lying Pulse: 86 84 80 Resp: 16 18 Temp: 36.7 C (98.1 F) 35.9 C (96.6 F) 36.7 C (98 F) TempSrc: Temporal Temporal Temporal SpO2: 92% 95% 93% Weight: (!) 162 kg (357 lb 6.4 oz) Height: PHYSICAL EXAM: GENERAL: Patient is well [...] CBC: Lab Results Component Value Date WBC 9.3 11/18/2022 RBC 3.30 (L) 11/18/2022 BMP: Lab Results Component Value Date GLUCOSE 120 (H) 11/18/2022 CO2 26 11/18/2022 BUN 29 (H) 11/18/2022 CREATININE 0.72 11/18/2022 CALCIUM 8.4 11/18/2022 PT/INR: Lab Results Component Value Date INR 1.0 11/16/2022 Type and Screen: No results found for: [...] 11/11/2022, rpt I&D 11/14, rpt I&D 11/16 Plan -RTOR for rpt LLE I&D, possible closure versus vac on Tuesday 11/21 -Consented for above procedure -Add P -NPO @ [place] 11/21 -Cx E faecalis -Maintain wound vac, monitor output; no need to change wound vacuum, as this will be removed intraoperatively -vac via set to 40 mL per soak -Multimodal pain control -NWB LLE -Elevate -IV ancef until return to OR, in process -Cleared -PT/OT -okay for diet -DVT ppx per primary, okay to start tmrw. Hold on 11/21 -Pain/medical management per primary -Ortho to follow. Please page on-call resident with questions/concerns * Joyce Clifford, SUPERVISOR HAND SILVERING - DATA MINING ANALYST - 11/18/2022 7:55 AM EST PAGING: The Acute Pain Service providers are available exclusively via [employer] CH[employer]. APS does not utilize pagers. Due to the current environment of [place] [address], PPE was worn for the duration of all face to face encounters including but not limited to an N95 in accordance with CDC and hospital guidelines. 11/18/2022 Subjective: We have been asked to see this 62 y.o. female for acute pain management 2/ surgical site infection, status post left above-knee amputation 10/31/2022, status post I&D with wound VAC application 11/11/2022, rpt I&D 11/14, rpt I&D 11/16 Reviewed X ray left femur 11/10/22. Reviewed XR chest 1 view 11-10-2022 NAEON, no pages. On arrival, pt sitting up in bed. Pt appears comfortable. Pt talkative and cooperative throughout exam, happy with current pain regimen. Pain controlled. States she was able to have a bowel movement this morning. Tolerating diet, denies n/v. Overall she reports doing well. Patient educated on pain regimen, aware that oxycodone, dilaudid are PRN and patient must ask for these medications when needed. Educated patient to utilize oral pain medications as first line and reserve IV pain medications for severe breakthrough pain. Pt is realistic about pain control: Not all pain will be taken away, but pain should be tolerable/manageable with current regimen. Pt instructedto have staff page APS if pain becomes uncontrolled when utilizing present regimen. Pt agreeable, denies further questions. PMH reviewed below Sedation score: 1: Awake and alert Pain Severity: mild to moderate Pain Location: bilateral lower extremities Pain Quality: tender Aggravating Factors: Moving Alleviating Factors: Rest/Pain medications Pain Management: [place] [facility] The patient's medical history and physical assessment, [...] No Objective Findings: Height: 170.2 cm (5' 7.01) Weight: (!) 162 kg (357 lb 6.4 oz) BMI (Calculated): 55.96 Vital signs: Blood pressure 111/60, pulse 84, temperature 35.9 C (96.6 F), temperature source Temporal, resp. rate 16, height 1.702 m (5' 7.01), weight (!) 162 kg (357 lb 6.4 oz), SpO2 95 %. 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 ([facility]) 07/27/2020 Asthma Cellulitis Constipation Depression Fibromyalgia GERD (gastroesophageal reflux disease) Hx of right BKA ([facility]) ([facility]) Hypertension Morbidly obese ([facility]) ([facility]) 02/03/2019 BMI 50.52 On home O2 FAY treated with BiPAP Osteoarthritis Osteomyelitis of right foot ([facility]) SCHEDULED FOR THE SURGERY ON 02/11/2019 Seasonal [...] Right 02/11/2019 FOOT SURGERY Right 2019 IN [place] FOOT SURGERY Right 04/08/2019 I&D right foot [...] Right 05/06/2019 Right Below Knee Amputation (CPT 56116), #2 Excisional debridement right iliac crest (wound [...] obstructive lung disease (HCC) Morbid obesity (CMS/HCC) ([facility]) Migraine headache Vitamin D deficiency Viral upper [...] (BMI) Gastroesophageal reflux disease Hiatal hernia Callosity long term care pharmacist (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 antibiotics Left leg cellulitis Dehiscence of closure of skin, sequela Necrotizing soft tissue infection Infected wound Osteomyelitis (HCC) Hematoma Cellulitis of right foot Post-op pain Osteomyelitis of right foot (HCC) Open wound of right foot MSSA (methicillin susceptible Staphylococcus aureus) infection Right foot infection Hardware complicating wound infection (CMS/HCC) (HCC) Right foot pain Postoperative pain Cellulitis Lymphedema Stump pain ([facility]) Abrasion of lower leg with infection, initial encounter PE (pulmonary thromboembolism) (HCC) Surgical wound infection HLD (hyperlipidemia) Review of Systems Constitutional: Negative. Respiratory: Negative for cough and shortness of breath. Cardiovascular: Negative for chest pain. Gastrointestinal: Negative for nausea and vomiting. Genitourinary: Negative for difficulty urinating. Musculoskeletal: BLE tenderness Skin: Positive for wound (surgical). Psychiatric/Behavioral: Negative for agitation. The patient is not nervous/anxious. Physical Exam Vitals and nursing note reviewed. Constitutional: Appearance: Normal appearance. HENT: Head: Normocephalic and atraumatic. Cardiovascular: Rate and Rhythm: Normal rate. Pulmonary: Effort: Pulmonary effort is normal. Abdominal: Tenderness: There is no guarding. Musculoskeletal: General: Tenderness (BLE) present. Cervical back: Normal range of motion. Skin: General: Skin is warm and dry. Neurological: Mental Status: She is alert and oriented to person, place, and time. Psychiatric: Mood and Affect: Mood normal. Behavior: Behavior normal. Lab Results Component Value Date CREATININE 0.72 11/18/2022 CREATININE 0.70 02/14/2022 AST 31 02/01/2022 Pain Management Adjuvants: 0700 --> 0700 11/16/2022 11/17/2022 Scheduled APAP 0 mg 2,000 mg Gabapentin 0 mg 200 mg Lidocaine patches X Flexeril 10 mg PRN Hydromorphone 0.5 mg Methocarbamol Oxycodone 40 mg 30 mg Morphine DC 12 mg 8 mg Assessment / Pain Management Plan: Acute Postsurgical BLE pain Multimodal pain regimen: BLOCK: n/a Continue Acetaminophen 1,000 mg po q8h scheduled ATC. Liver enzymes WNL, last checked: 02/01/22 Continue Flexeril 10 mg nightly Continue Lidocaine patch x 1. Cut and place as needed. Continue Oxycodone to 10 - 15 mg po q4h prn moderate to severe breakthrough pain. Continue Hydromorphone 0.25 mg - 0.5 mg IVP q4h prn moderate to severe breakthrough pain. Please utilize oral medications first. Continue Gabapentin 100 mg TID Opioid Tolerant Some [...] and your body's abilityto heal itself. Will follow peripherally. Patient returns to OR on 11-21-2022. Continue with above regimen. Plan discussed with patient who appears to understand and agrees. PAGING: The Acute Pain Service providers are available exclusively via [employer]. APS does not utilize pagers. * César Schneider MD - 11/18/2022 6:54 AM EST Images from the original note were not included. Hospitalist Progress Note 11/18/2022 [id number]: Please page [facility] night Hospitalist for any issues. Subjective: Admit [...] culture and its sensitivities. Returned to OR (11/14, 11/16) for repeat I&Ds, found to have need for additional I&D; wound vac continued. APS assisted with pain control due to escalating requirements following each return to the OR. Interval History: No overnight events, resting this AM listening to music. Upset, states that SNF gave her bed away and now she will be returning home after hospitalization, but also states that she thinks she would do better at home than at SNF--but doesn't want to burden her daughter. Had a BM last night, had been asking for enema but now no longer feels that she needs one. 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 ([facility]) 07/27/2020 Asthma Cellulitis Constipation Depression Fibromyalgia GERD (gastroesophageal reflux disease) Hx of right BKA ([facility]) ([facility]) Hypertension Morbidly obese ([facility]) ([facility]) 02/03/2019 BMI 50.52 On home O2 FAY treated with BiPAP Osteoarthritis Osteomyelitis of right foot ([facility]) SCHEDULED FOR THE SURGERY ON 02/11/2019 Seasonal allergies Shortness of breath URSULA (stress urinary incontinence, female) Vertigo Objective: Vitals: BP 111/60 (BP Location: Right arm) Pulse 84 Temp 35.9 C (96.6 F) (Temporal) Resp 16 Ht 5' 7.01 (1.702 m) Wt (!) 357 lb 6.4 oz (162 kg) SpO2 95% BMI 55.96 kg/m Pulse Ox: SpO2 Av.5 % Min: 91 % Max: 96 % Supplemental O2: room air, CPAP in place on entry to room General appearance: NAD, cooperative with exam, obese. Respiratory: CTAB with normal effort. Cardiovascular: RRR, no M/R/G. Peripheral pulses 2+ (upper extremities). Abdomen: Soft, NT/ND, NBS. Musculoskeletal: RLE with remote BKA, LLE with AKA and irrigation set. Skin: Skin appropriately warm, turgor and color unremarkable. Wound LLE as noted above. Neurologic: Grossly neurologically intact. Answering questions & following directions appropriately. LABS: HEME: Recent Labs 11/15/22 0707 11/17/22 0242 11/18/22 0041 WBC 11.8* 8.8 9.3 RBC 3.42* 3.59* 3.30* HGB 8.8* 9.0* 8.6* HCT 27.7* 29.1* 26.6* MCV 80.9 81.0 80.5 RDW 22.2* 22.3* 22.0* PLT 350 405 413 CHEM: Recent Labs 11/15/22 0825 11/17/222 11/18/22 0041 NA 133* 135 137 K 4.2 4.8 3.8 CL 100 101 104 CO2 28 30 26 BUN 22* 22* 29* CREATININE 0.71 0.67 0.72 EGFR >90.0 >90.0 >90.0 GLUCOSE 166* 211* 120* CALCIUM 8.9 8.8 8.4 ANIONGAP 5 5 7 LIVER: No results for input(s): AST, ALT, BILITOT, ALKPHOS, ALBUMIN, PROT, GGT in the last 72 hours. COAG: Recent Labs 11/16/22 0523 PROTIME 10.4 INR 1.0 CARDIAC: No results for input(s): TROPONINI in the last 72 hours. No results found for: BNP Recent Labs 11/17/22 1137 11/17/22 1608 11/17/22 2035 11/18/22 0649 POCGLU 117* 102* 100 99 No results for input(s): LACTATE in the last 72 hours. Lab Results Component Value Date HGBA1C 5.4 11/17/2022 Urine Culture: No results found for this or any previous visit. Blood Culture: No results found for this or any previous visit. Medications: Current Facility-Administered Medications: acetaminophen (Tylenol) tablet 1,000 mg, 1,000 mg, Oral, q8h, MITCH Pacheco CNP, 1,000 mg at 11/18/22 0346 albuterol (2.5 MG/3ML) 0.083% nebulizer solution 2.5 mg, 2.5 mg, Nebulization, q4h PRN, John Hebert MD amitriptyline (Elavil) tablet 25 mg, 25 mg, Oral, Nightly, John Hebert MD, 25 mg at 11/17/222040 budesonide (Pulmicort) 0.5 MG/2ML nebulizer solution 0.5 mg, 0.5 mg, Nebulization, BID PRN, John Hebert MD cefTRIAXone (Rocephin) 2,000 mg in dextrose 5 % 50 mL IVPB Mini-Bag Plus, 2,000 mg, IntraVENous, q24h, John Hebert MD, Stopped at 11/17/22 171 citalopram (CeleXA) tablet 20 mg, 20 mg, Oral, Daily, John Hebert MD, 20 mg at 11/17/22 08 cyclobenzaprine (Flexeril) tablet 10 mg, 10 mg, Oral, Nightly, John Hebert MD, 10 mg at 11/17/222037 dextrose 5 % infusion, 100 mL/hr, IntraVENous, PRN, César Schneider MD dextrose 50 % solution 12.5 g, 12.5 g, IntraVENous, PRN, César Schneider MD ergocalciferol (Vitamin D2) capsule 1.25 mg, 50,000 Units, Oral, Weekly, John Hebert MD, 1.25 mg at 11/12/22 104 fluticasone (Flonase) nasal spray 1 spray, 1 spray, Each Nostril, BID, John Hebert MD, 1 spray at11/17/222037 gabapentin (Neurontin) capsule 100 mg, 100 mg, Oral, TID, MITCH Pacheco CNP, 100 mg at 11/17/222037 glucagon (human recombinant) injection 1 mg, 1 mg, IntraMUSCular, PRN, César Schneider MD glucose oral gel 15 g, 15 g, Oral, PRN, César Schneider MD HYDROmorphone (Dilaudid) injection 0.25 mg, 0.25 mg, IntraVENous, q4h PRN OR HYDROmorphone (Dilaudid) injection 0.5 mg, 0.5 mg, IntraVENous, q4h PRN, MITCH Pacheco CNP, 0.5 mg at 346 influenza vac subunit quadrivalent (Flucelvax) injection 0.5 mL, 0.5 mL, IntraMUSCular, Once, MD Saravanan Insulin Lispro (Humalog) injection 0-6 Units, 0-6 Units, SubCUTAneous, 4x daily AC & HS, César Schneider MD Lidocaine 4 % patch 1 patch, 1 patch, Topical, Daily, John Hebert MD, 1 patch at 11/13/22 0935 mometasone-formoterol (Dulera 100) 100-5 MCG/ACT inhaler 2 puff, 2 puff, Inhalation, BID, John Hebert MD, 2 puff at 11/17/222038 naloxone (Narcan) 0.4 mg in 0.9% sodium chloride 10 mL syringe, , IntraVENous, PRN, MITCH Pacheco CNP ondansetron ODT (Zofran-ODT) disintegrating tablet 4 mg, 4 mg, Oral, q8h PRN OR ondansetron (Zofran) injection 4 mg, 4 mg, IntraVENous, q6h PRN, John Hebert MD, 4 mg at 11/16/22 1819 oxyCODONE (Roxicodone) immediate release tablet 10 mg, 10 mg, Oral, q4h PRN OR oxyCODONE (Roxicodone) immediate release tablet 15 mg, 15 mg, Oral, q4h PRN, MITCH Pacheco CNP, 15 mg at 11/18/22 0607 pantoprazole (ProtoNix) EC tablet 20 mg, 20 mg, Oral, qAM AC, John Hebert MD, 20 mg at 11/18/22 0607 polyethylene glycol (PEG) 3350 (Miralax) packet 17 g, 17 g, Oral, Daily, John Hebert MD, 17 g at 11/17/22 1417 senna-docusate sodium (Senokot-S) 8.6-50 MG tablet 2 tablet, 2 tablet, Oral, Nightly, John Hebert MD, 2 tablet at 11/17/222037 sodium chloride 0.9 % infusion, 5-250 mL/hr, IntraVENous, PRN, John Hebert MD sodium chloride 0.9% (NS) flush 5-40 mL, 5-40 mL, IntraVENous, q12h, John Hebert MD, 10 mL at 11/18/22 0700 sodium chloride 0.9% (NS) flush 5-40 mL, 5-40 mL, IntraVENous, PRN, John Hebert MD tiotropium (Spiriva) 18 MCG per inhalation capsule 18 mcg, 1 capsule, Inhalation, Daily, John Hebert MD, 18 mcg at 11/17/22 0808 Medical Decision Making Acute, acute on chronic, unstable/uncontrolled chronic problems: LLE post-op infection, s/p I&D and wound vac (11/11, 11/14, 11/16) Post-op blood loss anemia, stable/uptrending Increasing glucose noted on labs, no history of DM2, periodically receiving dexamethasone which would exacerbate any underlying insulin resistance Stable chronic problems affecting care, new non-acute diagnoses: Asthma HTN Class III obesity FAY MDD As a result of the above findings & factors, the following mgmt was pursued: - ortho consulted, appreciate recs - plan to return to OR 11/21 for next I&D, possible closure - NWB LLE - pain control (acetaminophen PO prn, oxycodone PO prn, hydromorphone IV prn; gabapentin) - APS assisting, appreciate recs - increased oxycodone, switched morphine to hydromorphone, started gabapentin for phantom limb - discussed with patient, will add additional qday bowel stimulant to help stay ahead of constipation - A1c wnl and no elevated glucose on checks yesterday, will cancel glucose checks & SSI - antibiotic - CTX (11/13-present); switch to [...] Date - TBD - Location - Home vs. Skilled Facility - Pending the following - at least one more I&D (on 11/21), CM to work on new placement on Sunday César Schneider MD Division of Hospitalist Medicine Inpatient Medical Services/[facility] MDM: Medium [id number]) * Ann Marie Fernandez, OT - 11/17/2022 2:46 PM EST Occupational Therapy Facility/Department: Occupational Therapy Initial Evaluation NAME: Siobhan Haas : 1960 Date of Service: 11/17/2022 Discharge Recommendations: Facility based therapy Assessment Performance deficits / Impairments: Decreased balance, Decreased ADL status, Decreased endurance, Decreased high-level IADLs, Decreased strength, Decreased functional mobility Assessment: OT eval completed, pt s/p left AKA 10/31/22; s/p I&D 11/11, rpt I&D 11/14, rpt I&D 11/16. Currently below baseline for ADLs and functional mobility. Pt currently min/mod assist of1-2 person for bed mobility. Two skilled therapists for pt and therapist safety to achieve sitting EOB. Pt completed various dynamic sitting balance tasks at EOB, and scooting at EOB to simulate slideboard transfers. Provided pt with red theraband and exercises for BUE. At this time recommend facility based therapy. Prognosis: Good Decision Making: Low Complexity REQUIRES OT FOLLOW-UP: Yes Activity Tolerance Activity Tolerance: Patient Tolerated treatment well Patient Diagnosis(es): The encounter diagnosis was Surgical wound infection. 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 ([facility]) (07/27/2020), Asthma, Cellulitis, Constipation, Depression, Fibromyalgia, GERD (gastroesophageal reflux disease), right BKA([facility]) ([facility]), Hypertension, Morbidly obese ([facility]) ([facility]) (02/03/2019), On home O2, FAY treatedwith BiPAP, Osteoarthritis, Osteomyelitis of right foot ([facility]), Seasonal allergies, Shortness of breath, URSULA (stress [...] Foot surgery (Right, 04/08/2019); Other surgical history; [place] tooth extraction; Other surgical history (Right, 04/02/2019); Incontinence surgery (11/15/2015); Other surgical history (Right, 04/22/2019); Other surgical history (Right, 05/06/2019); orthopedic surgery (Right, 04/01/2019); Foot surgery (Right, 04/24/2019); Foot surgery (Left, 08/04/2021); Hysterectomy (1996); and Tonsillectomy. Restrictions Restrictions/Precautions Restrictions/Precautions: Fall Risk, Weight Bearing Required Braces or Orthoses?: No Lower Extremity Weight Bearing Restrictions Left Lower Extremity Weight Bearing: Non Weight Bearing Position Activity Restriction Other position/activity restrictions: LLE wound vac w/ irigation Vision/Hearing Vision: Impaired Vision Exceptions: Wears glasses for reading Hearing: Functional/adequate for paticipation in therapy Cognition/Orientation Overall Cognitive Status: WFL Overall Orientation Status: Within Functional Limits Subjective General Chart Reviewed: Yes Patient Assessed for Rehabilitation Services: Yes Additional Pertinent Hx: history right BKA Family / Caregiver Present: No Diagnosis: left AKA 10/31/22, s/p I&D 11/11, rpt I&D 11/14, rpt I&D 11/16 Subjective Subjective: pt supine in bed upon entry, agreeable to therapy Pain Assessment Pain Assessment: (pt reports phantom pains and intermittent pain in LLE) Social/Functional History Social/Functional History Type of Home: Facility Home Equipment: Wheelchair-manual, Wheelchair-electric ADL Assistance: Independent Ambulation Assistance: (Prior to L BKA in October 2022, patient was ambulatory with RLE prosthesis and no assistive device.) Transfer Assistance: Independent (Prior to L AKA in October 2022.) Additional Comments: prior to recent left AKA pt independent in ADLs Objective ADL Grooming: Modified independent (provided with items pt able to complete grooming tasks sitting EOB) Tone RUE RUE Tone: Normotonic Tone LUE LUE Tone: Normotonic Coordination Movements Are Fluid And Coordinated: Yes Bed mobility Bridging: Minimal assistance, 2 Person assistance (to HOB, x2 reps) Rolling to Left: Moderate assistance Rolling to Right: Minimal assistance Supine to Sit: Minimal assistance, Moderate assistance Sit to Supine: Minimal assistance Scooting: Minimal assistance, Moderate assistance Comment: HOB flat, rolling right and left for new glide sheet and hilary change. bed mobility with two skilled therapists for pt and therapist safety to achieve sitting EOB LUE AROM (degrees) LUE AROM : WFL RUE AROM (degrees) RUE AROM : WFL LUE Strength LUE Strength Comment: at least 3/5 RUE Strength RUE Strength Comment: at least 3/5 Plan Times per Week: 3-5 Plan Weeks: 4 Current Treatment Recommendations: Strengthening, ROM, Balance Training, Functional Mobility Training, Wheelchair Mobility Training, Endurance Training, Pain Management, Safety Education & Training, Positioning, Equipment Evaluation, Education, & procurement, Patient/Caregiver Education & Training, Self-Care / ADL Safety Safety Devices in place: Yes Type of devices: All fall risk precautions in place, Call light within reach, Left in bed Outcomes Score AM-PAC Score AM-PAC Inpatient Daily Activity Raw Score: 17 ADL Inpatient CMS G-Code Modifier: CK Goals Encounter Problems Encounter Problems (Active) Bathing Patient will utilize adaptive techniques to bathe body, bed level, mod I Start: 11/17/22 Expected End: 12/15/22 OT Misc pt will complete HEP with red theraband to increase strength in bilat UE to prepare for transfers Start: 11/17/22 Expected End: 12/15/22 Transfers Patient will complete functional transfer with sliding board with min assist in order to prepare for ambulation. Start: 11/17/22 Expected End: 12/15/22 Patient will perform bed mobility with supervision in order to improve independence and prepare forout of bed mobility. Start: 11/17/22 Expected End: 12/15/22 Education Education Given To: Patient Education Provided: OT Role, Plan of Care, Home Exercise Program, Transfer Training Education Method: Verbal Barriers to Learning: None Education Outcome: Verbalized understanding Therapy Time Individual Co-treatment Time In 1012 Time Out 1040 Minutes 28 Timed Code Treatment Minutes: 10 Minutes (funct act:1) Patient's Occupational Therapy Plan of Care supervision is transferred to [facility] Occupational Therapist. Goals and/or treatment plan was established in collaboration with patient/family/other representatives. Ann Marie Fernandez OTR/L * Teresa Sandoval PTA - 11/17/2022 2:14 PM EST Physical Therapy Facility/Department: Physical Therapy Daily Treatment Note NAME: Siobhan Haas : 1960 Date of Service: 11/17/2022 Discharge Recommendations: Facility based therapy PT Equipment Recommendations Equipment Needed: No Other: tbd Assessment Assessment: Pt motivated and progressing towards PT goals. Pt required Min x1-2 for safety during dynamic sitting balance activity and pre-slide board training at EOB. Pt would benefit from ongoing Facility based therapy post Disch. Performance Deficits/Impairments: Decreased functional mobility , Decreased balance, Decreased strength Decision Making: High Complexity Requires PT Follow-Up: Yes Patient Diagnosis(es): The encounter diagnosis was Surgical wound infection. 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 ([facility]) (07/27/2020), Asthma, Cellulitis, Constipation, Depression, Fibromyalgia, GERD (gastroesophageal reflux disease), right BKA([facility]) ([facility]), Hypertension, Morbidly obese ([facility]) ([facility]) (02/03/2019), On home O2, FAY treatedwith BiPAP, Osteoarthritis, Osteomyelitis of right foot ([facility]), Seasonal allergies, Shortness of breath, URSULA (stress [...] Foot surgery (Right, 04/08/2019); Other surgical history; [place] tooth extraction; Other surgical history (Right, 04/02/2019); Incontinence surgery (11/15/2015); Other surgical history (Right, 04/22/2019); Other surgical history (Right, 05/06/2019); orthopedic surgery (Right, 04/01/2019); Foot surgery (Right, 04/24/2019); Foot surgery (Left, 08/04/2021); Hysterectomy (1996); and Tonsillectomy. Restrictions Restrictions/Precautions Restrictions/Precautions: Fall Risk, Weight Bearing Required Braces or Orthoses?: No Lower Extremity Weight Bearing Restrictions Left Lower Extremity Weight Bearing: Non Weight Bearing Position Activity Restriction Other position/activity restrictions: LLE wound vac w/ irigation Vision/Hearing Subjective General Chart Reviewed: Yes Additional Pertinent Hx: previous R BKA w/o current prothesis Response To Previous Treatment: Patient with no complaints from previous session. Family / Caregiver Present: No Follows Commands: Within Functional Limits General Comment Comments: PEARL DIVER wore mask, gloves during PT Rx. Pt highly motivated to sit EOB and begin pre-slide board training. Subjective Subjective: Pt in bed, reports she was recently given pain meds and agreeable to PT. nsg cleared ptfor PT. OT present for eval and Co-tx. Pt reports she had cast made for new RLE BKA prothesis PEARL DIVER. Pt was advised to call Ladariuschinmaymalvin and get report of progress on new prosthetic Pain Assessment Pain Assessment: (Pt notes intermittent LLE pain, and phantom pains BLE) Cognition/Orientation Overall Cognitive Status: WFL Cognition Comment: Pt noted to have good understanding of functional deficits and limitations. Overall Orientation Status: Within Functional Limits Objective Bed mobility Bridging: Minimal assistance, 2 Person assistance (to HOB x2 rep) Rolling to Left: Moderate assistance Rolling to Right: Minimal assistance Supine to Sit: Minimal assistance, Moderate assistance Sit to Supine: Minimal assistance Scooting: Minimal assistance, Moderate assistance Comment: HOB flat; log rolls for new slide sheet and bed hilary change and fitted sheet change Transfers Sit to Stand: Unable to assess Stand to sit: Unable to assess Comment: slide board NT today; Ambulation Ambulation: No Wheelchair Activities Wheelchair Parts Management: No Propulsion: No Balance Posture: Good Sitting - Static: Good Sitting - Dynamic: Fair, + Comments: Pt at EOB while PEARL DIVER used mechanical tilt on bed to provide slight downhill for lateral scooting along EOB for pre-slide board training; Min 1-2 for balance while scooting EOB Exercises Hip Flexion: LLE x5 rep Hip Abduction: LLE x5 rep Knee Long Arc Quad: x5 rep RLE Upper Extremity: Pt able to sit EOB and perform theraband Ex w/ OT w/ no UE support and no truncal LOB noted Plan Times per Week: 5-7 Plan Weeks: 2 Specific Instructions for Next Treatment: functional strength and balance training. Current Treatment Recommendations: Strengthening, Balance Training, Functional Mobility Training, Transfer Training, Safety Education & Training, Wheelchair Mobility Training Plan Comment: Cont PT POC Safety Safety Devices Safety Devices in Place: Yes Type of Devices: All fall risk precatuions in place, Call light within reach, Patient at risk for falls, Left in bed, Nurse notified Outcomes Score AM-PAC Score AM-PAC Inpatient Mobility Raw Score: 6 Mobility Inpatient CMS G-Code Modifier: CN Goals Encounter Problems Encounter Problems (Active) Balance Patient will maintain dynamic sitting balance with SBA when given moderate challenges in order to demonstrate improved postural control and prepare for out of bed mobility. (Progressing) Start: 11/15/22 Expected End: 11/29/22 Mobility Patient will propel the wheelchair for 50 ft and supervision in order to improve safety and independence with functional mobility. (Progressing) Start: 11/15/22 Expected End: 11/29/22 Transfers Patient will perform bed mobility with supervision in order to improve independence and prepare forout of bed mobility. (Progressing) Start: 11/15/22 Expected End: 11/29/22 Patient will complete functional transfer with sliding board with min assist bed to/from drop arm chair or wheelchair. (Not Addressed) Start: 11/15/22 Expected End: 11/29/22 Education Education Given To: Patient Education Provided: Goals, Plan of Care, Home Exercise Program, Transfer Training, Functional Mobility Training Education Provided Comments: HEP for L AKA; pre-slide board training. Education Method: Verbal, Teach Back Barriers to Learning: None Education Outcome: Verbalized understanding, Demonstrated understanding, Continued education needed Therapy Time Individual Co-treatment Time In 1011 Time Out 1040 Minutes 29 Timed Code Treatment Minutes: 29 Minutes (FA x2) Teresa Sandoval PTA * Gianna Camara RD - 11/17/2022 1:59 PM EST Nutrition Assessment Type and Reason for Visit: Reassess Nutrition Recommendations/Plan: Pt is currently ordered a Regular, 4 carb (60 gm/meal diet). Pt requesting carb restriction be removed. Pt's BG levels slightly elevated--166/211/117, RD will modify to 5 carb (75 gm/meal) to provideless restriction, however feel it is necessary to keep some level of CHO restriction as tight BG control is needed for wound healing and surgical optimization (has repeat I&D 11/21). Per MNT protocol, will discontinue Ensure Max at dinner. Pt is drinking Premier Protein shakes fromhome at lunch and dinner. Monitor weight, labs, I/Os, skin integrity and overall nutrition status. RD to follow up weekly. Malnutrition Assessment: Malnutrition Status: No malnutrition Context: Acute Illness Findings of the 6 clinical characteristics of malnutrition: Energy Intake: Mild decrease in energy intake (Comment) (Frequent NPO status d/t 3 I&Ds so far this admit. 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 S/p I&D with evacuation of hematoma and wound VAC placement on 11/13/22. ID following. Returned to OR for repeat I&D/closure 11/14/22. Returned again to OR for repeat I&D/closure 11/16/22. Plan for RTOR for rpt LLE I&D, possible closure versus vac on Tuesday 11/21. RD visited pt this afternoon, she is currently on a Regular, 4 carb diet. She reports she is eatingwell, however is upset that 'someone put a 60 gm carb restriction on my diet'. Pt states she feels restricted in what she can order. RD reviewed BG levels--166/211/117 and HgbA1c 5.4 (11/17/22). This RD will increase to 5 carb (75 gm/meal), will not completely remove at this time as her BG is occasionally high and tight BG control is necessary to promote wound healing and she has another I&D scheduled. Pt reports she is not drinking the Ensure max (dislikes it) and she is drinking the Premier protein drinks from home BID (observed at bedside). RD obtained bed weight of 357.4#. Of note, pt h as bilateral AKAs. Estimated Daily Nutrient Needs: Energy Requirements Based On: Kcal/kg Weight Used for Energy Requirements: [place] (25-30 kcal/kg) Weight for Energy Calculation (kg): 55.18 kg (adjusted for AKA) Total Energy Requirements (kcals/day): 7299-6698 Weight Used for Protein Requirements: [place] (1.2-1.4 g/kg) Weight in Kg Used for Protein Requirements: 55.18 kg (adjusted for AKA) Estimated Total Protein (g/day): 66-77 Estimated Daily Total Fluid (ml/day): per MD Nutrition Related Findings: Rudi = 17, GI = last bm 11/15, edema = +1 RLE, +2 LLE, I/O+, Labs: BG 175/166/211, HgbA1c 5.4 (11/17/22), Meds reviewed Wound Type: Surgical Incision Current Nutrition Therapies: NPO diet NPO except: Sips of Water with Meds Adult diet Regular; 4 carb choices (60 gm/meal) Current Oral Intake Average Meal Intake: 76-100% Average Supplements Intake: 0% (Drinking Premier proteins shakes BID from home) Anthropometric Measures: Height: 170.2 cm (5' 7.01) Current Body Weight: 162 kg (Bed weight taken this date) Admission Body Weight: 157 kg (11/10 stated) Usual Body Weight: (369# on 10/17/22, 358# on 08/31/22, 210# on 05/16/22) % Weight Change (Calculated): 3.3 [place] Body Weight (lbs) (Calculated): 135 lbs [place] Body Weight (Kg) (Calculated): 61 kg % [place] Body Weight (Calculated): 264.7 % BMI (kg/m2) (Calculated): 56 Weight Adjustment For: Amputation % Weight Adjustment: 20.2 - Bilateral AKA Total Adjusted Percentage (Calculated): 20.2 Adjusted [place] Body Weight (lbs) (Calculated): 107.7 lbs Adjusted [place] Body Weight (kg) (Calculated): 48.95 kg Adjusted BMI (kg/m2) (Calculated): 67.3 BMI Categories: Obese Class 3 (BMI 40.0 or greater) Nutrition Interventions: Nutrition Education/Counseling: No recommendation at this time Coordination of Nutrition Care: Continue to monitor while inpatient Goals: Previous Goal Met: Progressing toward Goal(s) Goals: PO intake 75% or greater, prior to discharge Nutrition Monitoring and Evaluation: Behavioral-Environmental Outcomes: None Identified Food/Nutrient Intake Outcomes: Food and Nutrient Intake Physical Signs/Symptoms Outcomes: Biochemical Data, Nutrition Focused Physical Findings, Skin, Weight, Meal Time Behavior, Fluid Status or Edema Discharge Planning: Too soon to determine Gianna Camara RD Contact: *[phone] * César Schneider MD - 11/17/2022 8:25 AM EST Images from the original note were not included. Hospitalist Progress Note 11/17/[id number]: Please page [facility] night Hospitalist for any issues. Subjective: Admit Date: 11/10/2022 PCP: Oj Maddox Room#: [id number] Brief hospital course: Patient admitted 11/10/2022 [...] culture and its sensitivities. Returned to OR (11/14, 11/16) for repeat I&Ds, found to have need for additional I&D; wound vac continued. Interval History: Went to OR yesterday evening, had repeat I&D but will need another (11/21), now has intermittent wound irrigation. Morphine use is escalating, met with APS just prior to my eval. 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 ([facility]) 07/27/2020 Asthma Cellulitis Constipation Depression Fibromyalgia GERD (gastroesophageal reflux disease) Hx of right BKA ([facility]) ([facility]) Hypertension Morbidly obese ([facility]) ([facility]) 02/03/2019 BMI 50.52 On home O2 FAY treated with BiPAP Osteoarthritis Osteomyelitis of right foot ([facility]) SCHEDULED FOR THE SURGERY ON 02/11/2019 Seasonal allergies Shortness of breath URSULA (stress urinary incontinence, female) Vertigo Objective: Vitals: BP 122/81 (BP Location: Left arm, Patient Position: Lying) Pulse 84 Temp 36.9 C (98.4 F) (Temporal) Resp 18 Ht 5' 7 (1.702 m) Wt (!) 346 lb (157 kg) SpO2 96% BMI 54.19 kg/m Pulse Ox: SpO2 Av.3 % Min: 92 % Max: 97 % Supplemental O2: room air General appearance: NAD, cooperative with exam, obese. Respiratory: CTAB with normal effort. Cardiovascular: RRR, no M/R/G. No pedal edema. Peripheral pulses 2+. Abdomen: Soft, NT/ND, NBS. Musculoskeletal: RLE with BKA, LLE with AKA and irrigation set. Skin: Skin appropriately warm, turgor and color unremarkable. Neurologic: Grossly neurologically intact. Answering questions & following directions appropriately. LABS: HEME: Recent Labs 11/15/22 0707 11/17/22 0242 WBC 11.8* 8.8 RBC 3.42* 3.59* HGB 8.8* 9.0* HCT 27.7* 29.1* MCV 80.9 81.0 RDW 22.2* 22.3* PLT 350 405 CHEM: Recent Labs 11/15/22 0825 11/17/22 0242 NA 133* 135 K 4.2 4.8 CL 100 101 CO2 28 30 BUN 22* 22* CREATININE 0.71 0.67 EGFR >90.0 >90.0 GLUCOSE 166* 211* CALCIUM 8.9 8.8 ANIONGAP 5 5 LIVER: No results for input(s): AST, ALT, BILITOT, ALKPHOS, ALBUMIN, PROT, GGT in the last 72 hours. COAG: Recent Labs 11/16/22 0523 PROTIME 10.4 INR 1.0 CARDIAC: No results for input(s): TROPONINI in the last 72 hours. No results found for: BNP No results for input(s): POCGLU in the last 72 hours. No results for input(s): LACTATE in the last 72 hours. No results found for: DDIMER, PROCAL, COVID19, HGBA1C, TSH, [id number], FOLATE, CHOL, TRIG, HDL, LDLCALC Urine Culture: No results found for this or any previous visit. Blood Culture: No results found for this or any previous visit. Medications: Current Facility-Administered Medications: acetaminophen (Tylenol) tablet 650 mg, 650 mg, Oral, q6h PRN, 650 mg at 11/15/22 0821 OR acetaminophen (Tylenol) suppository 650 mg, 650 mg, Rectal, q6h PRN, John Hebert MD albuterol (2.5 MG/3ML) 0.083% nebulizer solution 2.5 mg, 2.5 mg, Nebulization, q4h PRN, John Hebert MD amitriptyline (Elavil) tablet 25 mg, 25 mg, Oral, Nightly, John Hebert MD, 25 mg at 11/16/22 204 budesonide (Pulmicort) 0.5 MG/2ML nebulizer solution 0.5 mg, 0.5 mg, Nebulization, BID PRN, John Hebert MD cefTRIAXone (Rocephin) 2,000 mg in dextrose 5 % 50 mL IVPB Mini-Bag Plus, 2,000 mg, IntraVENous, q24h, John Hebert MD, Stopped at 11/16/22 1615 citalopram (CeleXA) tablet 20 mg, 20 mg, Oral, Daily, John Hebert MD, 20 mg at 11/17/22 0805 cyclobenzaprine (Flexeril) tablet 10 mg, 10 mg, Oral, Nightly, John Hebert MD, 10 mg at 11/16/222044 ergocalciferol (Vitamin D2) capsule 1.25 mg, 50,000 Units, Oral, Weekly, John Hebert MD, 1.25 mg at 11/12/22 1047 fluticasone (Flonase) nasal spray 1 spray, 1 spray, Each Nostril, BID, John Hebert MD, 1 spray at11/17/22 0806 influenza vac subunit quadrivalent (Flucelvax) injection 0.5 mL, 0.5 mL, IntraMUSCular, Once, MD Saravanan Lidocaine 4 % patch 1 patch, 1 patch, Topical, Daily, John Hebert MD, 1 patch at 11/13/22 0935 mometasone-formoterol (Dulera 100) 100-5 MCG/ACT inhaler 2 puff, 2 puff, Inhalation, BID, John Hebert MD, 2 puff at 11/17/22 0806 morphine sulfate (PF) injection 4 mg, 4 mg, IntraVENous, q4h PRN, John Hebert MD, 4 mg at 11/17/22 0521 ondansetron ODT (Zofran-ODT) disintegrating tablet 4 mg, 4 mg, Oral, q8h PRN OR ondansetron (Zofran) injection 4 mg, 4 mg, IntraVENous, q6h PRN, John Hebert MD, 4 mg at 11/16/22 181 oxyCODONE (Roxicodone) immediate release tablet 10 mg, 10 mg, Oral, q4h PRN, John Hebert MD, 10 mg at 11/17/22 0805 pantoprazole (ProtoNix) EC tablet 20 mg, 20 mg, Oral, qAM AC, John Hebert MD, 20 mg at 11/17/22 0521 polyethylene glycol (PEG) 3350 (Miralax) packet 17 g, 17 g, Oral, Daily, John Hebert MD, 17 g at 11/15/22 1525 senna-docusate sodium (Senokot-S) 8.6-50 MG tablet 2 tablet, 2 tablet, Oral, Nightly, John Hebert MD, 2 tablet at 11/16/22 2045 sodium chloride 0.9 % infusion, 5-250 mL/hr, IntraVENous, PRN, John Hebert MD sodium chloride 0.9% (NS) flush 5-40 mL, 5-40 mL, IntraVENous, q12h, John Hebert MD, 10 mL at 11/17/22 0807 sodium chloride 0.9% (NS) flush 5-40 mL, 5-40 mL, IntraVENous, PRN, John Hebert MD tiotropium (Spiriva) 18 MCG per inhalation capsule 18 mcg, 1 capsule, Inhalation, Daily, John Hebert MD, 18 mcg at 11/17/22 0808 Medical Decision Making Acute, acute on chronic, unstable/uncontrolled chronic problems: LLE post-op infection, s/p I&D and wound vac (11/11, 11/14, 11/16) Post-op blood loss anemia, stable/uptrending Increasing glucose noted on labs, no history of DM2, periodically receiving dexamethasone which would exacerbate any underlying insulin resistance Stable chronic problems affecting care, new non-acute diagnoses: Asthma HTN Class III obesity FAY MDD As a result of the above findings & factors, the following mgmt was pursued: - ortho consulted, appreciate recs - plan to return to OR 11/21 for next I&D, possible closure - NWB LLE - pain control (acetaminophen PO prn, oxycodone PO prn, morphine IV prn) - escalating morphine requirements, APS consulted - check A1c, add glucose checks and LDSSI today-->monitor - antibiotic - CTX (11/13-present); switch to [...] - TBD - Location - Skilled Facility ([facility]) - Pending the following - at least one more I&D César Schneider MD Division of Hospitalist Medicine Inpatient Medical Services/[facility] [place] MDM: Medium ([id number]) * Elise Warren MD - 11/17/2022 6:06 AM EST Images from the original note were not included. Orthopedic Progress Note Name: Siobhan Haas Date:11/17/2022 Attending:César Schneider MD Subjective Patient is doing well. She did not sleep well overnight. She denies fever, chills, and SOB. She is understanding of the plan for repeat 11/21. Objective PAST MEDICAL HISTORY Patient Active Problem [...] obstructive lung disease (HCC) Morbid obesity (CMS/HCC) ([facility]) Migraine headache Vitamin D deficiency Viral upper respiratory tract infection 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HCC) Swelling of left lower extremity Shortness of breath Seasonal allergies Superficial incisional surgical site infection Rheumatoid arthritis ([facility]) Restless legs syndrome Anxiety Arthritis of right [...] (BMI) Gastroesophageal reflux disease Hiatal hernia Callosity MCFP (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 antibiotics Left leg cellulitis Dehiscence of closure of skin, sequela Necrotizing soft tissue infection Infected wound Osteomyelitis ([facility]) Hematoma Cellulitis of right foot Post-op pain Osteomyelitis of right foot ([facility]) Open wound of right foot MSSA (methicillin susceptible Staphylococcus aureus) infection Right foot infection Hardware complicating wound infection (CMS/HCC) ([facility]) Right foot pain Postoperative pain Cellulitis Lymphedema Stump pain ([facility]) Abrasion of lower leg with infection, initial encounter PE (pulmonary thromboembolism) ([facility]) Surgical wound infection HLD (hyperlipidemia) PAST SURGICAL [...] Right 02/11/2019 FOOT SURGERY Right 2019 IN [place] FOOT SURGERY Right 04/08/2019 I&D right foot [...] Right 05/06/2019 Right Below Knee Amputation (CPT 02058), #2 Excisional debridement right iliac crest (wound [...] Historical Provider, cholecalciferol (Vitamin D-3) 1.25 MG (87373 UT) capsule Take by mouth 1 (one) [...] 650 mg, 650 mg, Rectal, q6h PRN, John Hebert MD albuterol (2.5 MG/3ML) 0.083% nebulizer solution 2.5 mg, 2.5 mg, Nebulization, q4h PRN, John Hebert MD amitriptyline (Elavil) tablet 25 mg, 25 mg, Oral, Nightly, John Hebert MD, 25 mg at 11/16/222044 budesonide (Pulmicort) 0.5 MG/2ML nebulizer solution 0.5 mg, 0.5 mg, Nebulization, BID PRN, John Hebert MD cefTRIAXone (Rocephin) 2,000 mg in dextrose 5 % 50 mL IVPB Mini-Bag Plus, 2,000 mg, IntraVENous, q24h, John Hebert MD, Stopped at 11/16/22 1615 citalopram (CeleXA) tablet 20 mg, 20 mg, Oral, Daily, John Hebert MD, 20 mg at 11/16/22 0823 cyclobenzaprine (Flexeril) tablet 10 mg, 10 mg, Oral, Nightly, John Hebert MD, 10 mg at 11/16/222044 ergocalciferol (Vitamin D2) capsule 1.25 mg, 50,000 Units, Oral, Weekly, John Hebert MD, 1.25 mg at 11/12/22 104 fluticasone (Flonase) nasal spray 1 spray, 1 spray, Each Nostril, BID, John Hebert MD, 1 spray at11/16/222045 influenza vac subunit quadrivalent (Flucelvax) injection 0.5 mL, 0.5 mL, IntraMUSCular, Once, MD Saravanan Lidocaine 4 % patch 1 patch, 1 patch, Topical, Daily, John Hebert MD, 1 patch at 11/13/22 0935 mometasone-formoterol (Dulera 100) 100-5 MCG/ACT inhaler 2 puff, 2 puff, Inhalation, BID, John Hebert MD, 2 puff at 11/16/22 0800 morphine sulfate (PF) injection 4 mg, 4 mg, IntraVENous, q4h PRN, John Hebert MD, 4 mg at 11/17/22 0521 ondansetron ODT (Zofran-ODT) disintegrating tablet 4 mg, 4 mg, Oral, q8h PRN OR ondansetron (Zofran) injection 4 mg, 4 mg, IntraVENous, q6h PRN, John Hebert MD, 4 mg at 11/16/22 181 oxyCODONE (Roxicodone) immediate release tablet 10 mg, 10 mg, Oral, q4h PRN, John Hebert MD, 10 mg at 11/17/22 0312 pantoprazole (ProtoNix) EC tablet 20 mg, 20 mg, Oral, qAM AC, John Hebert MD, 20 mg at 11/17/22 0521 polyethylene glycol (PEG) 3350 (Miralax) packet 17 g, 17 g, Oral, Daily, John Hebert MD, 17 g at 11/15/22 1525 senna-docusate sodium (Senokot-S) 8.6-50 MG tablet 2 tablet, 2 tablet, Oral, Nightly, John Hebert MD, 2 tablet at 11/16/222044 sodium chloride 0.9 % infusion, 5-250 mL/hr, IntraVENous, PRN, John Hebert MD sodium chloride 0.9% (NS) flush 5-40 mL, 5-40 mL, IntraVENous, q12h, John Hebert MD, 10 mL at 11/16/22 0700 sodium chloride 0.9% (NS) flush 5-40 mL, 5-40 mL, IntraVENous, PRN, John Hebert MD tiotropium (Spiriva) 18 MCG per inhalation capsule 18 mcg, 1 capsule, Inhalation, Daily, John Hebert MD, 18 mcg at 11/13/22 0935 ALLERGIES: [...] Narrative Has been in rehab facility in [place] Lives alone, son close Friends help Social [...] systems reviewed and are negative VITALS: Vitals: 11/16/22 2000 11/16/22202511/17/22 0039 11/17/22 0530 BP: (!) 149/75 128/83 119/76 118/59 BP Location: Patient Position: Pulse: 79 81 87 77 Resp: 12 18 18 18 Temp: 36.3 C (97.3 F) 36.1 C (96.9 F) 36.7 C (98 F) TempSrc: Temporal Temporal Temporal SpO2: 95% 97% 92% 95% Weight: Height: PHYSICAL EXAM: GENERAL: Patient [...] CBC: Lab Results Component Value Date WBC 8.8 11/17/2022 RBC 3.59 (L) 11/17/2022 BMP: Lab Results Component Value Date GLUCOSE 211 (H) 11/17/2022 CO2 30 11/17/2022 BUN 22 (H) 11/17/2022 CREATININE 0.67 11/17/2022 CALCIUM 8.8 11/17/2022 PT/INR: Lab Results Component Value Date INR 1.0 11/16/2022 Type and Screen: No results found for: [...] 11/11/2022, rpt I&D 11/14, rpt I&D 11/16 Plan -RTOR for rpt LLE I&D, possible closure versus vac on Tuesday 11/21 -Consent P -Add P -NPO @ [place] 11/21 -Cx P -Maintain wound vac, monitor output; no need to change wound vacuum, as this will be removed intraoperatively -vac via set to 40 mL per soak -Multimodal pain control -NWB LLE -Elevate -IV ancef until return to OR, in process -Cleared -PT/OT -okay for diet -DVT ppx per primary, okay to start tmrw. Hold on 11/21 -Pain/medical management per primary -Ortho to follow. Please page on-call resident with questions/concerns * Teresa Sandoval PTA - 11/16/2022 3:28 PM EST Physical Therapy Per RN, Pt to go to [facility] today for repeat I&D LLE. Will check back as schedule permits. * César Schneider MD - 11/16/2022 11:47 AM EST Images from the original note were not included. Hospitalist Progress Note 11/16/2022 [id number]: Please page [facility] Hospitalist for any issues. Subjective: Admit Date: 11/10/2022 PCP: Oj Maddox Room#: [id number] A Brief hospital course: Patient admitted 11/10/2022 [...] vac continued. Interval History: No overnight events. Anticipating return to OR this afternoon, quite hungry in interim. Has sister at beside this AM, no concerns. 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 ([facility]) 07/27/2020 Asthma Cellulitis Constipation Depression Fibromyalgia GERD (gastroesophageal reflux disease) Hx of right BKA ([facility]) ([facility]) Hypertension Morbidly obese ([facility]) ([facility]) 02/03/2019 BMI 50.52 On home O2 FAY treated with BiPAP Osteoarthritis Osteomyelitis of right foot ([facility]) SCHEDULED FOR THE SURGERY ON 02/11/2019 Seasonal allergies Shortness of breath URSULA (stress urinary incontinence, female) Vertigo Objective: Vitals: BP 134/70 (BP Location: Left arm, Patient Position: Lying) Pulse 77 Temp 36.7 C (98.1 F) (Temporal) Resp 16 Ht 5' 7 (1.702 m) Wt (!) 346 lb (157 kg) SpO2 93% BMI 54.19 kg/m Pulse Ox: SpO2 Av % Min: 93 % Max: 95 % Supplemental O2: room air General appearance: NAD, cooperative with exam, obese. Respiratory: CTAB with normal effort. Cardiovascular: RRR, no M/R/G. No pedal edema. Peripheral pulses 2+. Abdomen: Soft, NT/ND, NBS. Musculoskeletal: RLE with BKA, LLE with AKA. Wound vac at LLE residual limb. Skin: Skin appropriately warm, turgor and color unremarkable. Neurologic: Grossly neurologically intact. Answering questions & following directions appropriately. LABS: HEME: Recent Labs 11/15/22 0707 WBC 11.8* RBC 3.42* HGB 8.8* HCT 27.7* MCV 80.9 RDW 22.2* PLT 350 CHEM: Recent Labs 11/15/22 0825 NA 133* K 4.2 CL 100 CO2 28 BUN 22* CREATININE 0.71 EGFR >90.0 GLUCOSE 166* CALCIUM 8.9 ANIONGAP 5 LIVER: No results for input(s): AST, ALT, BILITOT, ALKPHOS, ALBUMIN, PROT, GGT in the last 72 hours. COAG: Recent Labs 11/16/22 0523 PROTIME 10.4 INR 1.0 CARDIAC: No results for input(s): TROPONINI in the last 72 hours. No results found for: BNP No results for input(s): POCGLU in the last 72 hours. No results for input(s): LACTATE in the last 72 hours. No results found for: DDIMER, PROCAL, COVID19, HGBA1C, TSH, [id number], FOLATE, CHOL, TRIG, HDL, LDLCALC Urine Culture: [...] q24h, Maged Wilder MD, Stopped at 11/15/22 1603 citalopram (CeleXA) tablet 20 mg, 20 mg, Oral, Daily, Maged Wilder MD, 20 mg at 11/16/22 0823 cyclobenzaprine (Flexeril) tablet 10 mg, 10 mg, Oral, Nightly, Maged Wilder MD, 10 mg at 11/15/222034 ergocalciferol (Vitamin D2) capsule 1.25 mg, 50,000 Units, Oral, Weekly, Maged Wilder MD, 1.25 mg at 11/12/22 1047 fluticasone (Flonase) nasal spray 1 spray, 1 spray, Each Nostril, BID, Maged Wilder MD, 1 spray at 11/16/22 0816 influenza vac subunit quadrivalent (Flucelvax) injection 0.5 mL, 0.5 mL, IntraMUSCular, Once, Maged Wilder MD Lidocaine 4 % patch 1 patch, 1 patch, Topical, Daily, Maged Wilder MD, 1 patch at 11/13/22 0935 mometasone-formoterol (Dulera 100) 100-5 MCG/ACT inhaler 2 puff, 2 puff, Inhalation, BID, Maged Wilder MD, 2 puff at 11/16/22 0800 morphine sulfate (PF) injection 4 mg, 4 mg, IntraVENous, q4h PRN, Maged Wilder MD, 4 mg at 11/16/22 0930 ondansetron ODT (Zofran-ODT) disintegrating tablet 4 mg, 4 mg, Oral, q8h PRN OR ondansetron (Zofran) injection 4 mg, 4 mg, IntraVENous, q6h PRN, Maged Wilder MD oxyCODONE (Roxicodone) immediate release tablet 10 mg, 10 mg, Oral, q4h PRN, Maged Wilder MD, 10 mg at 11/16/22 0820 pantoprazole (ProtoNix) EC tablet 20 mg, 20 [...] - TBD - Location - Skilled Facility ([facility]) - Pending the following - at least one more I&D César Schneider MD Division of Hospitalist Medicine Inpatient Medical Services/[facility] MDM: Medium ([id number]) * Elise Warren MD - 11/16/2022 6:57 [...] complication (HCC) 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 ([facility]) Cellulitis of lower leg Back pain Tear of peroneal tendon Depressive disorder Hemorrhage of rectum and anus HTN (hypertension) Pansystolic murmur Chest wall pain Asthma Asthma with acute exacerbation Pain from implanted hardware Obstructive sleep apnea syndrome Chronic obstructive lung disease (HCC) Morbid obesity (CMS/HCC) ([facility]) Migraine headache Vitamin D deficiency Viral upper respiratory tract infection 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[facility]) Swelling of left lower extremity Shortness of breath Seasonal allergies Superficial incisional surgical site infection Rheumatoid arthritis ([facility]) Restless legs syndrome Anxiety Arthritis of right [...] (BMI) Gastroesophageal reflux disease Hiatal hernia Callosity long term care pharmacist (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 antibiotics Left leg cellulitis Dehiscence of closure of skin, sequela Necrotizing soft tissue infection Infected wound Osteomyelitis ([facility]) Hematoma Cellulitis of right foot Post-op pain Osteomyelitis of right foot ([facility]) Open wound of right foot MSSA (methicillin susceptible Staphylococcus aureus) infection Right foot infection Hardware complicating wound infection (CMS/HCC) ([facility]) Right foot pain Postoperative pain Cellulitis Lymphedema Stump pain ([facility]) Abrasion of lower leg with infection, initial encounter PE (pulmonary thromboembolism) ([facility]) Surgical wound infection HLD (hyperlipidemia) PAST SURGICAL HISTORY Past Surgical History: Procedure Laterality Date ABCESS DRAINAGE Right 08/07/2020 I&D of right BKA hematoma ANKLE SURGERY Left 12/19/2021 ankle I and D with placement of wound vac - dr alyssa PARKS ABDOMINOPLASTY BREAST SURGERY 2007 and abdomin removal for excess COLONOSCOPY COLONOSCOPY EXTREMITY SURGERY Left 01/24/2022 debridement necrotizing fasciitis LLE, wound vac FOOT SURGERY Right 02/11/2019 FOOT SURGERY Right 2019 [place] FOOT SURGERY Right 04/08/2019 I&D right foot [...] Right 05/06/2019 Right Below Knee Amputation (CPT 89092), #2 Excisional debridement right iliac crest (wound [...] Historical Provider, cholecalciferol (Vitamin D-3) 1.25 MG (21681 UT) capsule Take by mouth 1 (one) [...] Narrative Has been in rehab facility in [place] Lives alone, son close Friends help Social [...] OR for repeat I&D/closure 11/[address] 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 ([facility]) (07/27/2020), Asthma, Cellulitis, Constipation, Depression, Fibromyalgia, GERD (gastroesophageal reflux disease), right BKA([facility]) ([facility]), Hypertension, Morbidly obese ([facility]) ([facility]) (02/03/2019), On home O2, FAY treatedwith BiPAP, Osteoarthritis, Osteomyelitis of right foot ([facility]), Seasonal allergies, Shortness of breath, URSULA (stress [...] Foot surgery (Right, 04/08/2019); Other surgical history; [place] tooth extraction; Other surgical history (Right, 04/02/2019); [...] Plan of Care supervision is transferred to [facility] Rehab Department Physical Therapist. PPE worn in accordance with [facility] guidelines. Julia Cole PT * César Schneider MD - 11/15/2022 9:25 AM EST Images from the original note were not included. Hospitalist Progress Note 11/15/[phone]: Please page IMS night Hospitalist for any issues. 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 ([facility]) 07/27/2020 Asthma Cellulitis Constipation Depression Fibromyalgia GERD (gastroesophageal reflux disease) Hx of right BKA ([facility]) ([facility]) Hypertension Morbidly obese ([facility]) ([facility]) 02/03/2019 BMI 50.52 On home O2 FAY treated with BiPAP Osteoarthritis Osteomyelitis of right foot ([facility]) SCHEDULED FOR THE SURGERY ON 02/11/2019 Seasonal [...] found for: DDIMER, PROCAL, COVID19, HGBA1C, TSH, [id number], FOLATE, CHOL, TRIG, HDL, LDLCALC Urine Culture: [...] - TBD - Location - Skilled Facility ([facility]) - Pending the following - at least one more I&D César Schneider MD Division of Hospitalist Medicine Inpatient Medical Services/[facility] MDM: Medium ([id number]) * Joanna Sandoval PA-C - 11/15/2022 8:35 AM EST Orthopedic Surgery Progress Note Discussed medical optimization status for planned orthopedic procedure tomorrow with Dr. Keanu Schneider. Dr. Schneider states that patient remains medically optimized to proceed with planned procedure. Ortho to follow. Please page manager acquisition resident with any questions or concerns. * [...] (BMI) Gastroesophageal reflux disease Hiatal hernia Callosity long term care pharmacist (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 antibiotics Left leg cellulitis Dehiscence of closure of skin, sequela Necrotizing soft tissue infection Infected wound Osteomyelitis ([facility]) Hematoma Cellulitis of right foot Post-op pain Osteomyelitis of right foot ([facility]) Open wound of right foot MSSA (methicillin susceptible Staphylococcus aureus) infection Right foot infection Hardware complicating wound infection (CMS/HCC) ([facility]) Right foot pain Postoperative pain Cellulitis Lymphedema Stump pain ([facility]) Abrasion of lower leg with infection, initial encounter PE (pulmonary thromboembolism) ([facility]) Surgical wound infection HLD (hyperlipidemia) PAST SURGICAL [...] Right 02/11/2019 FOOT SURGERY Right 2019 [place] FOOT SURGERY Right 04/08/2019 I&D right foot [...] Right 05/06/2019 Right Below Knee Amputation (CPT 79773), #2 Excisional debridement right iliac crest (wound [...] Historical Provider, cholecalciferol (Vitamin D-3) 1.25 MG (76163 UT) capsule Take by mouth 1 (one) [...] Narrative Has been in rehab facility in [place] Lives alone, son close Friends help Social [...] Vitals: 11/14/22 1415 11/14/22 1430 11/14/22 1700 11/14/22 2113 BP: 111/68 118/66 126/75 103/73 BP Location: Left arm Left arm Patient Position: Lying Pulse: 75 72 74 82 Resp: 14 15 18 18 Temp: 37 C (98.6 [...] OR for repeat I&D/closure 11/[address] Mercado -Maintain wound vac, monitor output; no need [...] were not included. Hospitalist Progress Note 11/14/[phone]: Please page IMS night Hospitalist for any [...] (HCC) 02/03/2019 BMI 50.52 On home O2 FYA treated with BiPAP Osteoarthritis Osteomyelitis of right [...] found for: DDIMER, PROCAL, COVID19, HGBA1C, TSH, [id number], FOLATE, CHOL, TRIG, HDL, LDLCALC Urine Culture: [...] César Schneider MD, 10 mg at 11/13/22 1935 ergocalciferol (Vitamin D2) capsule 1.25 mg, 50,000 [...] - TBD - Location - Skilled Facility ([facility]) - Pending the following - at least one more I&D César Schneider MD Division of Hospitalist Medicine Inpatient Medical Services/[facility] MDM: Medium ([id number]) * Jose Meng, PT - 11/14/2022 7:31 AM EST Physical Therapy Physical Therapy Evaluation and Treatment Order Received. Plan for return to OR for repeat I&D/closure Tuesday 11/[address] Mercado * Elise Warren MD - 11/14/2022 6:57 [...] obstructive lung disease (HCC) Morbid obesity (CMS/HCC) ([facility]) Migraine headache Vitamin D deficiency Viral upper respiratory tract infection 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[facility]) Swelling of left lower extremity Shortness of breath Seasonal allergies Superficial incisional surgical site infection Rheumatoid arthritis ([facility]) Restless legs syndrome Anxiety Arthritis of right [...] (BMI) Gastroesophageal reflux disease Hiatal hernia Callosity [facility] (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 antibiotics Left leg cellulitis Dehiscence of closure of skin, sequela Necrotizing soft tissue infection Infected wound Osteomyelitis ([facility]) Hematoma Cellulitis of right foot Post-op pain Osteomyelitis of right foot ([facility]) Open wound of right foot MSSA (methicillin susceptible Staphylococcus aureus) infection Right foot infection Hardware complicating wound infection (CMS/HCC) ([facility]) Right foot pain Postoperative pain Cellulitis Lymphedema Stump pain ([facility]) Abrasion of lower leg with infection, initial encounter PE (pulmonary thromboembolism) ([facility]) Surgical wound infection PAST SURGICAL HISTORY Past Surgical History: Procedure Laterality Date ABCESS DRAINAGE Right 08/07/2020 I&D of right BKA hematoma ANKLE SURGERY Left 12/19/2021 ankle I and D with placement of wound vac - dr schaefer [place]T ABDOMINOPLASTY BREAST SURGERY 2006 and abdomin removal for excess COLONOSCOPY COLONOSCOPY EXTREMITY SURGERY Left 01/24/2022 debridement necrotizing fasciitis LLE, wound vac FOOT SURGERY Right 02/11/2019 FOOT SURGERY Right 2019 [place] FOOT SURGERY Right 04/08/2019 I&D right foot [...] Right 05/06/2019 Right Below Knee Amputation (CPT 15480), #2 Excisional debridement right iliac crest (wound [...] Historical Provider, cholecalciferol (Vitamin D-3) 1.25 MG (51481 UT) capsule Take by mouth 1 (one) [...] capsule 1.25 mg, 50,000 Units, Oral, Weekly, Magde Wilder MD, 1.25 mg at 11/12/22 1047 [...] Narrative Has been in rehab facility in [place] Lives alone, son close Friends help Social [...] for repeat I&D/closure Tuesday 11/[address] Mercado -Maintain wound vac, monitor output; no need [...] Malnutrition Status: No malnutrition Nutrition Assessment: Pt wtih PMH including GERD, fibromyalgia, asthma, HTN, recent left AKA, asthma, obesity, depression, obstructive sleep apnea presented to [facility] for evaluation of left arm cellulitis and [...] On: Kcal/kg Weight Used for Energy Requirements: [place] (25-30 kcal/kg) Weight for Energy Calculation (kg): 55.18 kg (adjusted for AKA) Total Energy Requirements (kcals/day): 7595-1851 Weight Used for Protein Requirements: [place] (1.2-1.4 g/kg) Weight in Kg Used for [...] 10/17/22, 358# on 08/31/22, 210# on 05/16/22) [place] Body Weight (lbs) (Calculated): 135 lbs [place] Body Weight (Kg) (Calculated): 61 kg Weight Adjustment For: Amputation % Weight Adjustment: 10.1 - AKA Total Adjusted Percentage (Calculated): 10.1 Adjusted [place] Body Weight (lbs) (Calculated): 121.4 lbs Adjusted [place] Body Weight (kg) (Calculated): 55.18 kg BMI [...] Nutrition Supplement Vielka Hampton RD, LD Contact: *[phone] or via SETVI chat * Joanna Sandoval PA-C - 11/13/2022 9:47 AM EST Images [...] (BMI) Gastroesophageal reflux disease Hiatal hernia Callosity long term care pharmacist (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 antibiotics Left leg cellulitis Dehiscence of closure of skin, sequela Necrotizing soft tissue infection Infected wound Osteomyelitis (HCC) Hematoma Cellulitis of right foot Post-op pain Osteomyelitis of right foot (HCC) Open wound of right foot MSSA (methicillin susceptible Staphylococcus aureus) infection Right foot infection Hardware complicating wound infection (CMS/HCC) (HCC) Right foot pain Postoperative pain Cellulitis Lymphedema Stump pain ([facility]) Abrasion of lower leg with infection, initial encounter PE (pulmonary thromboembolism) ([facility]) Surgical wound infection PAST SURGICAL HISTORY Past [...] Right 02/11/2019 FOOT SURGERY Right 2019 [place] FOOT SURGERY Right 04/08/2019 I&D right foot [...] Right 05/06/2019 Right Below Knee Amputation (CPT 00998), #2 Excisional debridement right iliac crest (wound [...] Historical Provider, cholecalciferol (Vitamin D-3) 1.25 MG (94832 UT) capsule Take by mouth 1 (one) [...] Nightly, Maged Wilder MD, 25 mg at 11/12/22 215 budesonide (Pulmicort) 0.5 MG/2ML nebulizer solution 0.5 [...] Maged Wilder MD, 1 spray at 11/12/22 2200 gabapentin (Neurontin) capsule 300 mg, 300 mg, Oral, Nightly, Maged Wilder MD, 300 mg at 11/12/22 2159 influenza vac subunit quadrivalent (Flucelvax) injection 0.5 [...] mg, 4 mg, IntraVENous, q6h PRN, Maged iWlder MD oxyCODONE (Roxicodone) immediate release tablet 10 [...] Narrative Has been in rehab facility in [place] Lives alone, son close Friends help Social [...] for repeat I&D/closure Tuesday 11/[address] Mercado -Maintain wound vac, monitor output; no need [...] were not included. Hospitalist Progress Note 11/13/2022 [phone]: Please page IMS night Hospitalist for any 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 ([facility]) 07/27/2020 Asthma Cellulitis Constipation Depression Fibromyalgia GERD (gastroesophageal reflux disease) Hx of right BKA (CMS/HCC) (HCC) Hypertension Morbidly obese ([facility]/HCC) (HCC) 02/03/2019 BMI 50.52 On home O2 [...] BID, Maged Wilder MD, 1 spray at 11/12/222199 gabapentin (Neurontin) capsule 300 mg, 300 mg, [...] gabapentin - current regimen reviewed by Dr. Olivas (antibiotics stewardship), after discussion switched from cefazolin [...] anticipate 11/15 - Location - Skilled Facility ([facility]) - Pending the following - post-op recovery, transition to PO pain regimen César Schneider MD Division of Hospitalist Medicine Inpatient Medical Services/[facility] MDM: Medium ([id number]) * Cleo Spencer, STREET OPENINGS INSPECTOR - 11/13/2022 7:33 AM EST [facility] Res[facility] Department Progress Note As part [...] the care of this patient, * Stephani Moore, PT - 11/12/2022 2:25 PM EST Physical Therapy PT orders received. Spoke with pt who declined sitting EOB or sidelying there ex until after her second surgery this Sunday (11/14). States she doesn't want to risk rubbing and injury to the incisionsite [place]. Stated she has been rolling for pressure relief Indep. Discussed performing hip mobilityin sidelying, especially ABD and Ext. Will continue to follow and assess pt likely Wed 11/15. * Janeth Wright - 11/12/2022 1:59 [...] 650 mg, 650 mg, Rectal, q6h PRN, aMged Wilder MD albuterol (2.5 MG/3ML) 0.083% nebulizer [...] Maged Wilder MD, 1 patch at 11/12/22 101 mometasone-formoterol (Dulera 100) 100-5 MCG/ACT inhaler 2 [...] Kimo Sargent MD Division of Hospitalist Medicine [facility] * Bj Call MD - 11/12/2022 10:40 AM EST [facility] [place] [address] [place] [id number] Dept: [phone] Loc: [phone] Orthopedic Progress Note Name: Siobhan Haas Date:11/12/2022 [...] for repeat I&D/closure Tuesday 11/[address] Mercado Maintain wound vac, monitor output Multimodal pain [...] Kimo Sargent MD Division of Hospitalist Medicine [facility] * David Gray MD - 11/11/2022 4:38 AM EST .logo [facility] [address] [place] [id number] Dept: [phone] Loc: [phone] Orthopedic Progress Note Name: Siobhan Haas Date:11/11/2022 [...] aspect. No active bleeding. No odor appreciated. Al intact along surgical site LABS: Recent Labs [...] OR -Orthopaedic surgery will follow. Please page manager acquisition orthopaedic resident for questions or concerns David Gray MD PGY-2, Orthopaedic Surgery [id number] documented in this [facility]02-27-2023 Hospital course Narrative* Lulú Zhao MD [...] Commonly known as: Symbicort cholecalciferol 1.25 MG (71095 UT) capsule Commonly known as: Vitamin D-3 [...] Your Medications These medications were sent to [facility] - [place], [place] - [address] [place] [address] acetaminophen 500 MG tablet apixaban 5 MG tablet ferrous sulfate 325 (65 Fe) MG tablet meropenem 1 g injection methocarbamol 750 MG tablet oxyCODONE 10 MG immediate release tablet polyethylene glycol (PEG) 3350 17 g packet senna-docusate sodium 8.6-50 MG tablet Recommended Follow-up: CARMELA Ramos 1 [facility] [phone] Go on 12/06/2022 2:00PM, post op Oj Maddox [address] [place] [address] [phone] Follow up Hospital follow up Complexity of Follow up: [] Moderate Complexity: follow up within 7-14 calendar days (20448) [x] Severe Complexity: follow up within 7 calendar days (70384) Follow up Testing, Pending results or Referrals [...] frame. Signed: LULÚ ZHAO MD [facility] 11/27/2022, 11:20 AM documented in this [facility]02-25-2023 Nurse Note* Bozena Sow LPN - 11/25/2022 6:32 PM EST Pt is requesting to go home when discharged and not go to nursing/rehab facility. Wants home care set up. documented in this [facility]02-24-2023 Telephone encounter Note* Telephone Encounter - Eva Antunez - 11/24/2022 12:55 PM EST Patient's son Deacon, in [place] office to drop off FMLA paperwork, he would like to sisal picker paperwork when completed. Will pay $15 when completed. [address] in Dr[address] Mercado mailbox. [id number] Procedure note* Lore Damon RN - 11/22/2022 [...] Site prior to insertion: ecchymoses Lot # [id number] Catheter type: 5 [place] Double Lumen Location: Left basilic vein Trimmed [...] Proceduralist: Shoaib Rolon APRN documented in this [facility]02-21-2023 Consult note* August Santana MD - 11/21/2022 2:16 PM ESTAssociated Order(s): IP CONSULT TO HEM/ONC Images from the original note were not included. [facility] Hematology Oncology Inpatient Consultation [facility] Siobhan Haas : 1960(62 y.o.) Date: November [...] (gastroesophageal reflux disease) Hx of right BKA ([facility]) ([facility]) Hypertension Morbidly obese ([facility]) ([facility]) 02/03/2019 BMI 50.52 On home O2 FAY treated with BiPAP Osteoarthritis Osteomyelitis of right foot ([facility]) SCHEDULED FOR THE SURGERY ON 02/11/2019 Seasonal [...] Right 02/11/2019 FOOT SURGERY Right 2019 [place] FOOT SURGERY Right 04/08/2019 I&D right foot [...] Right 05/06/2019 Right Below Knee Amputation (CPT 93322), #2 Excisional debridement right iliac crest (wound [...] Narrative Has been in rehab facility in [place] Lives alone, son close Friends help Social [...] Historical Provider, cholecalciferol (Vitamin D-3) 1.25 MG (15323 UT) capsule Take by mouth 1 (one) [...] Hematological: Does not bruise/bleed easily. Objective: Vitals: 11/18/221 11/19/22 0730 11/20/22 0816 11/20/22 1319 BP: 120/77 [...] TECHNIQUE: Left femur, two views FINDINGS: Left pypgg-aew-uffv amputation surgical changes with soft tissue edema of the distal thigh but no subcutaneous emphysema. No acute fractures or dislocations. Mild to moderate osteoarthritic changes of the left hip. Left skfex-kaz-selg amputation with soft tissue edema of the [...] 55 minutes in reviewing chart/records, test results, [id number] with patient, documentation on the day of visit * Luz Marina Borrero - 11/21/2022 8:32 AM ESTAssociated Order(s): IP CONSULT TO INFECTIOUS DISEASES Images from the original note were not included. [facility] - Infectious Diseases Attending Consult Note 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 ([facility]) 07/27/2020 Asthma Cellulitis Constipation Depression Fibromyalgia GERD (gastroesophageal reflux disease) Hx of right BKA ([facility]) ([facility]) Hypertension Morbidly obese ([facility]) ([facility]) 02/03/2019 BMI 50.52 On home O2 FAY treated with BiPAP Osteoarthritis Osteomyelitis of right foot ([facility]) SCHEDULED FOR THE SURGERY ON 02/11/2019 Seasonal [...] Right 02/11/2019 FOOT SURGERY Right 2019 [place] FOOT SURGERY Right 04/08/2019 I&D right foot [...] Right 05/06/2019 Right Below Knee Amputation (CPT 80061), #2 Excisional debridement right iliac crest (wound [...] mg Oral q8h Kierra Monaco APRN - DATA MINING ANALYST 1,000 mg at 11/20/22 1854 albuterol (2.5 [...] at 11/21/22 0700 3,375 mg at 11/21/22 07 polyethylene glycol (PEG) 3350 (Miralax) packet 17 g 17 g Oral Daily John Hebert MD 17 g at 11/21/22746 senna-docusate sodium (Senokot-S) 8.6-50 MG tablet 2 [...] is s/p L AKA 10/31; presented to [facility] 11/10 d/t concern of SSI; s/p multiple [...] of care, expectations, antimicrobials. * Kierra Monaco, SUPERVISOR HAND SILVERING - DATA MINING ANALYST - 11/17/2022 12:24 PM ESTAssociated Order(s): IP CONSULT TO ANESTHESIOLOGY - ACUTE PAIN SERVICE Images from the original note were not included. PAGING: The Acute Pain Service providers are available exclusively via [employer]. APS does not utilize pagers. Due to the current environment of [place] [address], PPE was worn for the duration of [...] Moving Alleviating Factors: Rest/Pain medications Pain Management: Radha pain management The patient's medical history and 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 ([facility]) 07/27/2020 Asthma Cellulitis Constipation Depression Fibromyalgia GERD (gastroesophageal reflux disease) Hx of right BKA ([facility]) ([facility]) Hypertension Morbidly obese ([facility]) ([facility]) 02/03/2019 BMI 50.52 On home O2 FAY treated with BiPAP Osteoarthritis Osteomyelitis of right foot ([facility]) SCHEDULED FOR THE SURGERY ON 02/11/2019 Seasonal allergies Shortness of breath URSULA (stress urinary incontinence, female) Vertigo Past Surgical History: Procedure Laterality Date ABCESS DRAINAGE Right 08/07/2020 I&D of right BKA hematoma ANKLE SURGERY Left 12/19/2021 ankle I and D with placement of wound vac - dr alyssa [place] ABDOMINOPLASTY BREAST SURGERY 2007 and abdomin removal for excess COLONOSCOPY COLONOSCOPY EXTREMITY SURGERY Left 01/24/2022 debridement necrotizing fasciitis LLE, wound vac FOOT SURGERY Right 02/11/2019 FOOT SURGERY Right 2019 [place] FOOT SURGERY Right 04/08/2019 I&D right foot [...] Right 05/06/2019 Right Below Knee Amputation (CPT 37068), #2 Excisional debridement right iliac crest (wound [...] (BMI) Gastroesophageal reflux disease Hiatal hernia Callosity long term care pharmacist (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 antibiotics Left leg cellulitis Dehiscence of closure of skin, sequela Necrotizing soft tissue infection Infected wound Osteomyelitis (HCC) Hematoma Cellulitis of right foot Post-op pain Osteomyelitis of right foot (HCC) Open wound of right foot MSSA (methicillin susceptible Staphylococcus aureus) infection Right foot infection Hardware complicating wound infection (CMS/HCC) (HCC) Right foot pain Postoperative pain Cellulitis Lymphedema Stump pain ([facility]) Abrasion of lower leg with infection, initial encounter PE (pulmonary thromboembolism) ([facility]) Surgical wound infection HLD (hyperlipidemia) Review of [...] Pain Service providers are available exclusively via [employer]. APS does not utilize pagers. * Rusty Mercado MD - 11/10/2022 3:42 PM ESTAssociated Order(s): IP CONSULT TO ORTHOPAEDIC SURGERY Images from the original note were not included. [facility] EMERGENCY DEPT [address] [place] [id number] Dept: [phone] Adult Orthopaedic Service Patient Name: Siobhan Haas Date of : 1960 Date: 11/10/22 Interval History: This is a 62 y.o. female with L SSI s/p AKA on 10/31. Patient reported to Dr. Mercado's office today (11/10) for a post-operative check. [...] aspect. No active bleeding. No odor appreciated. [place] intact along surgical site Labs: CBC: No [...] s/p AKA on 10/31 Plan: -D/w Dr. Mercado -Plan for OR 11/11/2022 for left lower [...] OR -Orthopaedic surgery will follow. Please page manager acquisition orthopaedic resident for questions or concerns. Bj Call MD PGY-1 Orthopaedic Surgery 11/10/2022 3:56 PM Dudley Holt MD Orthopaedic Surgery PGY2 11/10/2022 5:30 PM I saw and evaluated the patient, participating in the jose portions of the service. I reviewed the resident s note. I agree with the resident s findings and plan. Rusty Mercado MD documented in this [facility]02-11-2023 Hospital Discharge instructions* Discharge Instructions* Lulú [...] clinic follow up Follow up with Dr. Mercado in 10-14 days after the date of [...] most local grocery stores, pharmacies, and chain [employer]-stores. If you have any questions about your [...] Everywhere. * [employer] (Ugandan) documented in this [facility]02-10-2023 Emergency department Note* Haylee Hernandez RN [...] Possible wound infection. Surgery tmrw with dr mercado HISTORY OF PRESENT ILLNESS (Location/Symptom, Timing/Onset, Context/Setting, Quality, Duration, Modifying Factors, Severity) Note limiting factors. I wore appropriate PPE for the entirety of this encounter. HPI Siobhna Haas is a 62 y.o. female with 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 ([facility]) 07/27/2020 Asthma Cellulitis Constipation Depression Fibromyalgia GERD (gastroesophageal reflux disease) Hx of right BKA ([facility]) ([facility]) Hypertension Morbidly obese ([facility]) ([facility]) 02/03/2019 BMI 50.52 On home O2 FAY treated with BiPAP Osteoarthritis Osteomyelitis of right foot ([facility]) SCHEDULED FOR THE SURGERY ON 02/11/2019 Seasonal allergies Shortness of breath URSULA (stress urinary incontinence, female) Vertigo SURGICAL HISTORY Past Surgical History: Procedure Laterality Date ABCESS DRAINAGE Right 08/07/2020 I&D of right BKA hematoma ANKLE SURGERY Left 12/19/2021 ankle I and D with placement of wound vac - alyssa [place] ABDOMINOPLASTY BREAST SURGERY 2006 and abdomin removal for excess COLONOSCOPY COLONOSCOPY EXTREMITY SURGERY Left 01/24/2022 debridement necrotizing fasciitis LLE, wound vac FOOT SURGERY Right 02/11/2019 FOOT SURGERY Right 2019 [place] FOOT SURGERY Right 04/08/2019 I&D right foot [...] Right 05/06/2019 Right Below Knee Amputation (CPT 57038), #2 Excisional debridement right iliac crest (wound [...] the evening. CHOLECALCIFEROL (VITAMIN D-3) 1.25 MG (60870 UT) CAPSULE Take by mouth 1 (one) [...] Narrative Has been in rehab facility in [place] Lives alone, son close Friends help SCREENINGS [place] Coma Scale Best Eye Response: Spontaneous Best Verbal Response: Oriented Best Motor Response: Follows commands [place] Coma Scale Score: 15 PHYSICAL EXAM ED [...] femur left 2+ views Final Result Left [id number] amputation with soft tissue edema of the [...] ordered by orthopedic surgery residents per Dr. Mercado. No antibiotics started at this time per [...] infection External records reviewed: Outpatient notes Dr Mercado Clinic notes Diagnostics interpreted by me: none Discussions with other clinicians: Admitting team [facility] hospitalists and [employer] Orthopedic surgery Chronic conditions impacting care: Diabetes and Hypertension Social determinants of health affecting care: none ED Medications managed: Medications oxyCODONE (Roxicodone) immediate release tablet 5 mg (5 mg Oral Given 11/10/22 4075) Prescription drugs considered: N/A PROCEDURES: Unless otherwise [...] Samantha Galvez MD Resident 11/12/22 0216 * Teresa Huerta DO - 11/10/2022 2:26 PM EST Emergency Department Encounter [facility] EMERGENCY DEPT Patient: Siobhan Haas : 1960 Date of Evaluation: 11/10/2022 ED Supervising Physician: Teresa Huerta DO I independently examined and evaluated [...] freeto contact the dictating provider for clarification.) Teresa Huerta DO [employer] Teresa Huerta DO 11/10/22 1710 * Vijaya Hawkins RN - 11/10/2022 2:26 PM EST Bed: 26 Expected date: 11/10/22 Expected time: 1:58 PM Means of arrival: Comments: EMS Vijaya Hawkins RN 11/10/22 4563 documented in this [facility]02-10-2023 History and physical note* Kimo Stevens [...] (gastroesophageal reflux disease) Hx of right BKA ([facility]) ([facility]) Hypertension Morbidly obese ([facility]) ([facility]) 02/03/2019 BMI 50.52 On home O2 FAY treated with BiPAP Osteoarthritis Osteomyelitis of right foot ([facility]) SCHEDULED FOR THE SURGERY ON 02/11/2019 Seasonal [...] Right 02/11/2019 FOOT SURGERY Right 2019 [place] FOOT SURGERY Right 04/08/2019 I&D right foot [...] Right 05/06/2019 Right Below Knee Amputation (CPT 85845), #2 Excisional debridement right iliac crest (wound [...] Narrative Has been in rehab facility in [place] Lives alone, son close Friends help Social [...] the evening. cholecalciferol (Vitamin D-3) 1.25 MG (50345 UT) capsule Take by mouth 1 (one) [...] MD at 3:22 PM documented in this [facility]02-07-2023 Telephone encounter Note* Telephone Encounter - Shahla Galvin RN - 11/07/2022 12:36 PM EST Spoke with Terrell xie. She states the pressure dressing helped and the patient is feeling better now. She will call back if an appt tomorrow is needed. Otherwise, they will keep appt already scheduled. [id number] Miscellaneous Notes* Telephone Encounter - Shahla Galvin RN - 11/07/2022 12:36 PM EST Spoke with Terrell xie. She states the pressure dressing helped and the patient is feeling better now. She will call back if an appt tomorrow is needed. Otherwise, they will keep appt already scheduled. * Telephone Encounter - CARMELA Ramos - 11/07/2022 12:29 PM EST If they can get her to the [place] office tomorrow we can also see her [...] AM EST Name of Caller: Ming moreno [place] Contact Terrell-[phone] Reason for Appointment: nursing facility calling. Pt had 2 canisters for wound vacc and now both are full. Staff asking what to do. Office Name: Dr Byrd documented in this [facility]02-07-2023 Telephone encounter Note* Telephone Encounter - CARMELA Ramos - 11/07/2022 12:29 PM EST If they can get her to the [place] office tomorrow we can also see her then. [employer] Work Phone: [phone] Telephone encounter Note* Telephone Encounter - Shahla [...] again if the bleeding does not stop [facility] [id number] Hubbard [facility] November 06, 2022 7:38pm Note Date/Time November 06, 2022 6 :51pm [facility] Medical Records Department [address] [place] [address] Emergency Department Summary 11/06/22 MR#: [id number] Acct: [id number] Name: SIOBHAN HAAS Rep #:[id number] : 1960 62 From: Maximino Hubbard MD [...] left lower extremity. She was seen at [facility] and had the surgery performed on Sunday of last week, on 31 October, she stayed there for few days, then was discharged to the halfway facility, [facility], for rehabilitation. She states this is her [...] No current bleeding from her surgical wound. [facility] Medical History Above knee amputation of right lower extremity Anemia Anxiety Anxiety and depression Asthma Asthma exacerbation Below knee amputation Benign essential HTN BiPAP (biphasic positive airway pressure) dependence Bronchospasm Chronic wound of extremity Current use of mcfp anticoagulation Depression Failure of outpatient treatment Family [...] blood. Right below the knee amputation, left cddgx-[id number] amputation. Const Vital Signs: 11/06/22 18:31 11/06/22 [...] I anticipate is discharged back to the halfway facility. At approximately 1930, patient requested her [...] Qty: 60 0RF Primary Care Provider: Oj Maddox NP Referrals: Oj Maddox NP, PREPARATION PLANT REPAIRER-C [Primary Care Provider] - Disposition Disposition: Intermediate Facility Discharge Location: [facility] [place] What to do if you have Problems For any increased pain, shortness of breath, bleeding, nausea or vomiting, chestpain, or any unexpected problems, contact your Primary Care Provider. Call [facility] ([phone]) or report to the closest Emergency Room. Call 911 if necessary. 11/06/221937 <Electronically signed by Maximino Hubbard MD> Cosigner Signature (if applicable): CC: PREPARATION PLANT REPAIRER-C Oj Maddox ~ Signed [facility] Work Phone: 1(647) 459-775302-06-2023 Telephone encounter Note* Telephone Encounter - Bj Tineo MA - 11/06/2022 12:01 PM EST Scheduled for wound check on Sunday11/10/22 at 1:00p Relayed Jennifer's message regarding dry dressing [facility] [id number] Telephone encounter Note* Telephone Encounter - CARMELA Ramos - 11/06/2022 11:48 AM EST They can take off the wound vac and place a dry dressing over the incision and change as needed. They should keep the incision dry. We can see her on Sunday for an incision check -- sooner if they have concerns about the incision [id number] Telephone encounter Note* Telephone Encounter - Siobhan Maciel - 11/06/2022 11:22 AM EST Name of Caller: Ming Anju at [place] Contact Terrell-[phone] Reason for Appointment: nursing facility calling. Pt had 2 canisters for wound vacc and now both are full. Staff asking what to do. Office Name: Dr Byrd [facility] [id number] History of Present illness Narrative* Joanna Sandoval PA-C - 11/02/2022 2:32 PM EST Orthopedic [...] facility today. She will follow-up with Dr. Mercado as previously scheduled. Orthopaedic surgery will sign off. Please page manager acquisition orthopaedic resident for questions or concerns. * JORDANA Mariano - 11/02/2022 12:34 PM EST Occupational Therapy Facility/Department: Occupational Therapy Treatment NAME: Siobhan Haas : 1960 Date of Service: 11/02/2022 Discharge Recommendations: IP Rehab Assessment Assessment: Pt. continues to be motivated for therapies despite having surveillance observer spasms with L LE. Pt.is far [...] of left lower limb, and Stump pain ([facility]) were also pertinent to this visit. 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 ([facility]) (07/27/2020), Asthma, Cellulitis, Constipation, Depression, Fibromyalgia, GERD (gastroesophageal reflux disease), right BKA([facility]) ([facility]), Hypertension, Morbidly obese ([facility]) ([facility]) (02/03/2019), On home O2, FAY treatedwith BiPAP, Osteoarthritis, Osteomyelitis of right foot ([facility]), Seasonal allergies, Shortness of breath, URSULA (stress [...] Foot surgery (Right, 04/08/2019); Other surgical history; [place] tooth extraction; Other surgical history (Right, 04/02/2019); [...] act-1, ther ex-1) JORDANA Hyatt * Siobhan Duran, RD - 11/02/2022 11:31 AM EST [...] (kg): 49.6 kg Total Energy Requirements (kcals/day): 7913-3687 kcals per day (25-30) Weight Used for Protein Requirements: Adjusted Weight in Kg Used for Protein Requirements: 49.6 kg Estimated Total Protein (g/day): 64-74 gm per day (1.3-1.5) Estimated Daily Total Fluid (ml/day): 2001-8303 ml/day or per MD Nutrition Related Findings: [...] 159 kg (10/30/22- weight source not specified) [place] Body Weight (lbs) (Calculated): 130 lbs [place] Body Weight (Kg) (Calculated): 59 kg Weight Adjustment For: Amputation % Weight Adjustment: 5.9 - BKA, 10.1 - AKA Total Adjusted Percentage (Calculated): 16 Adjusted [place] Body Weight (lbs) (Calculated): 109.2 lbs Adjusted [place] Body Weight (kg) (Calculated): 49.64 kg Nutrition [...] Oral Nutrition Supplement Siobhan Duran RD Contact: *[phone] * Kierra Monaco APRN - [place] - 11/02/2022 11:00 AM EST PAGING: The Acute Pain Service providers are available exclusively via [employer]. [facility] does not utilize pagers. Due to the current environment of [place] [address], PPE was worn for the duration of all face to face encounters including but not limited to an N95 in accordance with CDC and hospital guidelines. 11/02/2022 Subjective: We have been asked to see this 62 y.o. female for acute pain management s/p AKA on 10/31/22. Reviewed Chest X ray 10/30/22. Patient is prescribed Percocet PRN for chronic pain. NAEON, no pages. 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 ([facility]) 07/27/2020 Asthma Cellulitis Constipation Depression Fibromyalgia GERD (gastroesophageal reflux disease) Hx of right BKA ([facility]) (HCC) Hypertension Morbidly obese ([facility]) ([facility]) 02/03/2019 BMI 50.52 On home O2 FAY [...] Right 02/11/2019 FOOT SURGERY Right 2019 [place] FOOT SURGERY Right 04/08/2019 I&D right foot [...] Right 05/06/2019 Right Below Knee Amputation (CPT 58368), #2 Excisional debridement right iliac crest (wound [...] obstructive lung disease (HCC) Morbid obesity (CMS/HCC) ([facility]) Migraine headache Vitamin D deficiency Viral upper respiratory tract infection 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HCC) Swelling of left lower extremity Shortness of breath Seasonal allergies Superficial incisional surgical site infection Rheumatoid arthritis ([facility]) Restless legs syndrome Anxiety Arthritis of right [...] (BMI) Gastroesophageal reflux disease Hiatal hernia Callosity long term care pharmacist (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 antibiotics Left leg cellulitis Dehiscence of closure of skin, sequela Necrotizing soft tissue infection Infected wound Osteomyelitis ([facility]) Hematoma Cellulitis of right foot Post-op pain Osteomyelitis of right foot ([facility]) Open wound of right foot MSSA (methicillin susceptible Staphylococcus aureus) infection Right foot infection Hardware complicating wound infection (CMS/HCC) ([facility]) Right foot pain Postoperative pain Cellulitis Lymphedema Stump pain ([facility]) Abrasion of lower leg with infection, initial encounter PE (pulmonary thromboembolism) ([facility]) Review of Systems Constitutional: Negative for chills [...] Pain Service providers are available exclusively via [employer]. APS does not utilize pagers. 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 ([facility]) 07/27/2020 Asthma Cellulitis Constipation Depression Fibromyalgia GERD (gastroesophageal reflux disease) Hx of right BKA ([facility]) ([facility]) Hypertension Morbidly obese ([facility]) ([facility]) 02/03/2019 BMI 50.52 On home O2 FAY treated with BiPAP Osteoarthritis Osteomyelitis of right foot ([facility]) SCHEDULED FOR THE SURGERY ON 02/11/2019 Seasonal allergies Shortness of breath URSULA (stress urinary incontinence, female) Vertigo LABS: CBC: Recent Labs 10/30/22 1550 10/31/22 1948 11/01/22 0047 11/02/22 0129 WBC 6.9 -- 15.7* 11.6* RBC 4.47 -- 3.97 3.01* HGB 10.6* 10.3* 9.8* 7.5* HCT 33.9* 32.4* 31.8* 23.6* MCV 75.8* -- 80.1 78.2* RDW 23.1* -- 23.7* 25.3* PLT 398 -- 337 290 BMP: Recent Labs 10/30/22 1550 11/01/22 0047 11/02/22 0129 NA 137 134* 131* K 3.9 4.4 [...] BID, Vinh Collins DO, 5 mg at 11/02/22834 citalopram (CeleXA) tablet 40 mg, 40 mg, [...] 10 mg, 10 mg, Oral, q4h PRN, Siobhan Esquivel APRN - [place], 10 mg at 11/02/22 0835 sodium chloride [...] DO Division of Hospitalist Medicine Inpatient Medical Services/[facility] * Haylee Torres OT - 11/01/2022 2:20 [...] history of 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 ([facility]) (07/27/2020), Asthma, Cellulitis, Constipation, Depression, Fibromyalgia, GERD (gastroesophageal reflux disease), right BKA([facility]) ([facility]), Hypertension, Morbidly obese ([facility]) ([facility]) (02/03/2019), On home O2, FAY treatedwith BiPAP, Osteoarthritis, Osteomyelitis of right foot ([facility]), Seasonal allergies, Shortness of breath, URSULA (stress [...] Foot surgery (Right, 04/08/2019); Other surgical history; [place] tooth extraction; Other surgical history (Right, 04/02/2019); [...] Plan of Care [facility]. Goals and/or treatment plan was established in collaboration with patient/family/other representatives. Safety Safety Devices in place: Yes Type of devices: Call light within reach, Left in bed AM-PAC Score AM-PAC Inpatient Daily Activity Raw Score: 14 ADL Inpatient [facility] G-Code Modifier: CK Goals Encounter Problems Encounter [...] Out 1402 Minutes 13 Haylee Torres OTR/L Y * Vinh Collins DO - 11/01/2022 1:17 PM EST Images from the original note were not included. Hospitalist Progress Note 11/01/2022 Subjective: Admit Date: 10/30/2022 PCP: Oj Maddox Room#: H-6103/[id number] A Interval History: No overnight issues. 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 ([facility]) 07/27/2020 Asthma Cellulitis Constipation Depression Fibromyalgia GERD (gastroesophageal reflux disease) Hx of right BKA ([facility]) ([facility]) Hypertension Morbidly obese ([facility]) ([facility]) 02/03/2019 BMI 50.52 On home O2 FAY treated with BiPAP Osteoarthritis Osteomyelitis of right foot ([facility]) SCHEDULED FOR THE SURGERY ON 02/11/2019 Seasonal [...] 650 mg, 650 mg, Oral, Q4H, Siobhan Esquivel, SUPERVISOR HAND SILVERING - DATA MINING ANALYST, 650 mg at 11/01/22 0540 albuterol (2.5 [...] Daily, MITCH Butcher CNP, 1 patch at 11/01/22 0844 LORazepam (Ativan) tablet 0.5 mg, 0.5 mg, [...] insurance auth Vinh Collins DO [facility] * Mary Cortes DTR - 11/01/2022 12:31 [...] history of 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 ([facility]) (07/27/2020), Asthma, Cellulitis, Constipation, Depression, Fibromyalgia, GERD (gastroesophageal reflux disease), right BKA([facility]) ([facility]), Hypertension, Morbidly obese ([facility]) ([facility]) (02/03/2019), On home O2, FAY treatedwith BiPAP, Osteoarthritis, Osteomyelitis of right foot ([facility]), Seasonal allergies, Shortness of breath, URSULA (stress [...] Foot surgery (Right, 04/08/2019); Other surgical history; [place] tooth extraction; Other surgical history (Right, 04/02/2019); [...] for Rehabilitation Services: Yes Additional Pertinent Hx: Maria Dolores ONEILL 2019 (has prosthetic) Family / Caregiver Present: No Diagnosis: abrasion of lower leg with infection s/p Krystyna ROMEOAlf Follows Commands: Within Functional Limits Subjective Subjective: [...] Independent Transfer Assistance: Independent Objective Observation/Palpation Observation: Maria Dolores COLE Gross Assessment Gross Assessment: Yes AROM: Generally decreased, functional Coordination: Within functional limits Tone: Normal Sensation: Impaired Gross Assessment: Yes AROM: Generally decreased, functional Coordination: Within functional limits Tone: Normal Sensation: Impaired Sensation Overall Sensation Status: Impaired Additional Comments: Pt experiencing phantom limb pain in LLE but is understanding of situation as she had experienced it prior in 2019 with Maria Dolores ONEILL. Bed mobility Rolling to Right: Maximum [...] Plan of Care supervision is transferred to [facility] Rehab Department Physical Therapist. PT wore [...] an outpatient in 2 weeks please call [phone] to make an appointment * Vinh Collins, DO - 10/31/2022 9:11 AM EST Images from the original note were not included. Hospitalist Progress Note 10/31/2022 Subjective: Admit Date: 10/30/2022 PCP: Oj Maddox Room#: H-0213/[id number] A Interval History: No overnight issues. Plans for OR later today. Patient currently expresses some anxiety about the procedure. 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 ([facility]) 07/27/2020 Asthma Cellulitis Constipation Depression Fibromyalgia GERD (gastroesophageal reflux disease) Hx of right BKA ([facility]) ([facility]) Hypertension Morbidly obese ([facility]) ([facility]) 02/03/2019 BMI 50.52 On home O2 FAY treated with BiPAP Osteoarthritis Osteomyelitis of right foot ([facility]) SCHEDULED FOR THE SURGERY ON 02/11/2019 Seasonal allergies Shortness of breath URSULA (stress urinary incontinence, female) Vertigo LABS: CBC: Recent Labs 10/30/22 1550 WBC 6.9 RBC 4.47 HGB 10.6* HCT 33.9* MCV 75.8* RDW 23.1* PLT 398 BMP: Recent Labs 01/30/23 1550 NA 137 K 3.9 CL 102 [...] clinical course Vinh Collins DO Division of Hospitalist Medicine Inpatient Medical Services/[facility] * Yousuf Gardner MD - 10/31/2022 7:02 [...] Orthopaedic Surgery [id number] 10/31/2022 documented in this [facility]02-02-2023 Note* Care Coordination - Belia Lo - 11/02/2022 12:42 PM EST Covid information transmitted to [facility] [place] via Careport per TCC request. [facility] HospitalOfcqmq53-86-7530 Note* Care Coordination - Belia Lo - 11/02/2022 12:42 PM EST [facility] T[facility]. [facility] HospitalZhvkgz68-50-8352 Miscellaneous Notes* Care Coordination - Belia Lo - 11/02/2022 12:42 PM EST [facility]id information [facility] request. * Care Coordination - Unknown Case Management - 11/02/2022 12:40 PM EST Patient Choice Patient Name: SIOBHAN HAAS Date of : 1960 All Providers Sent Referral Name: [facility] Phone: [phone] Address: [address] [place] [address] Name: [facility] Phone: [phone] Address: [address] [place] [address] * Care Coordination - CHRISTINE Rachel - 11/02/2022 11:49 AM EST Transport arranged for 1430 today to transfer pt to [facility]. RN, US, TCC, pt and [facility]. * Care Coordination - Belia Lo - 11/02/2022 10:44 AM EST Discharge med list information transmitted to [facility] via [facility] per TCC request. Covid pending. 7000 completed in [facility]. * Care Coordination - Elin Vang RN [...] EST Insurance Authorization: APPROVED Received notification via [employer] portal that patient is APPROVED admission to [facility] [place]. [employer] Auth ID:[id number] Dates Approved: 11/02/2022-11/06/2022 Next Review Date: 11/06/2022 TCC and facility notified. * Care Coordination - Ana Miller - 11/01/2022 4:14 PM EST Insurance Authorization Received task to initiate [employer] authorization to [facility] [place]. * Care Coordination - Belia Lo - 11/01/2022 2:47 PM EST Referral placed to [facility] [place] 2.[facility] Let facilities know: Anticipate pt [...] ratings explained. Pt requested referrals to 1. [facility] and 2. [facility] Message sent to [facility] to request referrals to above facilities, anticipate pt to be medically stable for DC in 1 day. TCC will continue to follow for acceptance and initiate authorization with [employer]. * Care Coordination - Elin Vang RN - 11/01/2022 10:28 AM EST Care Managment Initial Assessment Date: 11/01/2022 Patient Name: Siobhan Haas : 1960 Patient Information Source of Information: Patient Cognition/Language: WFL - Within Functional Limits Permission given to speak with patient entry level account representative/caregiver as indicated: Confirmation of Payer with patient/family: Yes Payer Name: change to [employer] MEDICARE, EFFECTIVE 11/01/22 [place]: Confirmation of Primary Care Physician: Confirmed PCP [...] members Support Systems: Children, Family members, Friends/neighbors, Hinduism/aleksandr community Activities of Daily Living Ambulation: Independent [...] Pt has health insurance, which switched from [employer] eff today. New insurance card copied- left VMM with [facility] and requested CB w/contact info provided. [...] Vang RN * Op Note - Rusty Mercado MD - 10/31/2022 5:05 PM EST Pre-operative [...] 62 y.o. female who was [facility]. A recommendation for [...] patient's ASA was verified by the nurse machine printer and the anesthesiastaff. Fire risk was assessed. [...] other utilizing 0 Vicryl in an interrupted ztxxum-wd-xzwzg fashion fullycovering the femur. The subcutaneous tissues [...] an outpatient in 2 weeks please call [phone] to make an appointment Any questions please page Ortho pager (resident manager acquisition) or call my office at [phone] * Care Coordination - Robi Trevino RN - 10/31/2022 2:57 PM EST To OR with family present. documented in this [facility]02-02-2023 Note* Care Coordination - Unknown Case Management - 11/02/2022 12:40 PM EST Patient Choice Patient Name: SIOBHAN HAAS Date of : 1960 All Providers Sent Referral Name: [facility] Phone: [phone] Address: [address] [place] [address] Name: [facility] Phone: [phone] Address: [address] [place] [address] [facility] HospitalJzntfx54-21-1889 Note* Care Coordination - Unknown Case Management - 11/02/2022 12:40 PM EST Patient Choice Patient Name: SIOBHAN HAAS Date of : 1960 All Providers Sent Referral Name: [facility] Phone: [phone] Address: [address] [place] [address] Name: [facility] Phone: [phone] Address: [address] [place] [address] [facility] HospitalJhchfz89-60-1924 Note* Care Coordination - CHRISTINE Rachel - 11/02/2022 11:49 AM EST Transport arranged for 1430 today to transfer pt to [facility]. RN, US, TCC, pt and Avenuesnotified. [facility] HospitalSlcydd01-03-0300 Note* Care Coordination - CHRISTINE Rachel - 11/02/2022 11:49 AM EST Transport arranged for 1430 today to transfer pt to [facility]. RN, US, TCC, pt and Avenuesnotified. [facility] HospitalBsvxyy17-79-2764 Note* Care Coordination - Belia Lo - 11/02/2022 10:44 AM EST Discharge med list information transmitted to [facility] per TCC request. Covid pending. 7000 completed in [facility]. [place] [id number] Note* Care Coordination - Belia Lo - 11/02/2022 10:44 AM EST Discharge med list information transmitted to [facility] via Careport per TCC request. Covid pending. 7000 completed in [facility]. 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 ([facility]) 07/27/2020 Asthma Cellulitis Constipation Depression Fibromyalgia GERD (gastroesophageal reflux disease) Hx of right BKA ([facility]) ([facility]) Hypertension Morbidly obese ([facility]) ([facility]) 02/03/2019 BMI 50.52 On home O2 AFY treated with BiPAP Osteoarthritis Osteomyelitis of right foot ([facility]) SCHEDULED FOR THE SURGERY ON 02/11/2019 Seasonal [...] Commonly known as: Symbicort cholecalciferol 1.25 MG (81569 UT) capsule Commonly known as: Vitamin D-3 [...] Lidocaine 4 % patch Recommended Follow-up: Rusty Mercado MD [address] [place] [address] Schedule an appointment as soon as possible for a visit in 2 week(s) post op Oj Maddox [address] [place] [address] Follow up in 1 week(s) Complexity of Follow up: [] Moderate Complexity: follow up within 7-14 calendar days (22124) [x] Severe Complexity: follow up within 7 calendar days (18131) Follow up Testing, Pending results or Referrals [...] frame. Signed: Vinh Collins DO Division of [facility] Inpatient Medical Services/[facility] 11/02/2022, 10:10 AM documented in this [facility]02-02-2023 Note* Care Coordination - Elin Vang RN - 11/02/2022 8:05 AM EST Care Coordination DCP note: TCC noted SNF authorization rec'd. Secure chat to Dr. Collins, requesting DC order. SW referral, request assistance w/transportation. Pt will need a negative COVID prior to DC today. DC Date: Today [facility] HospitalPnmaqj37-37-2467 Note* Care Coordination - Elin Vang RN - 11/02/2022 8:05 AM EST Care Coordination DCP note: TCC noted SNF authorization rec'd. Secure chat to Dr. Collins, requesting DC order. SW referral, request assistance w/transportation. Pt will need a negative COVID prior to DC today. DC Date: Today [facility] HospitalEpkitr74-60-0865 Note* Care Coordination - Ana Miller - 11/01/2022 4:24 PM EST Insurance Authorization: APPROVED Received notification via InPlace that patient is APPROVED admission to [facility]. [employer]First Auth ID:[id number] Dates Approved: 11/02/2022-11/06/2022 Next Review Date: 11/06/2022 TCC and facility notified. [facility] HospitalBnyuim20-04-9693 Note* Care Coordination - Ana Miller - 11/01/2022 4:24 PM EST Insurance Authorization: APPROVED Received notification via [employer]First portal that patient is APPROVED admission to [facility] [place]. [employer]First Auth ID:[id number] Dates Approved: 11/02/2022-11/06/2022 Next Review Date: 11/06/2022 TCC and facility notified. [place] [id number] Note* Care Coordination - Ana Miller - 11/01/2022 4:14 PM EST Insurance Authorization Received task to initiate Humana authorization to [facility] [place]. [facility] HospitalNhohfu57-80-8254 Note* Care Coordination - Ana Miller - 11/01/2022 4:14 PM EST Insurance Authorization Received task to initiate Humana authorization to [facility] [place]. [place] [id number] Note* Care Coordination - Belia Lo - 11/01/2022 2:47 PM EST Referral placed to SNF- [facility] [place] 2.[facility] Let facilities know: Anticipate pt will be medically ready for DC in 1 day via Careport per TCC request. Await review and response regarding ability to accept. TCC notified. [facility] HospitalRygazz98-55-3364 Note* Care Coordination - Belia Lo - 11/01/2022 2:47 PM EST Referral placed to SNF- [facility] [place] [facility] Let facilities know: Anticipate pt will be medically ready for DC in 1 day via Careport per TCC request. Await review and response regarding ability to accept. TCC notified. [facility] HospitalGtfpqw11-00-1168 Note* Care Coordination - Elin Vang RN - 11/01/2022 1:41 PM EST Care Coordination DCP note: TCC met w/pt @bedside to discuss DCP. SNF list provided and medicare star ratings explained. Pt [facility] [facility] [place] Message sent to [facility] to request referrals to above facilities, anticipate pt to be medically stable for DC in 1 day. TCC will continue to follow for acceptance and initiate authorization with [employer] Insurance. [facility] HospitalFfapjl94-16-2020 Note* Care Coordination - Elin Vang RN - 11/01/2022 1:41 PM EST Care Coordination DCP note: TCC met w/pt @bedside to discuss DCP. SNF list provided and medicare star ratings explained. Pt requested referrals to [facility]. [facility] [place] and 2. [facility] [place] Message sent to [facility] to request referrals to above facilities, anticipate pt to be medically stable for DC in 1 day. TCC will continue to follow for acceptance and initiate authorization with [employer]. [facility] HospitalUtmlsc23-76-6980 Note* Care Coordination - Elin Vang RN - 11/01/2022 10:28 AM EST Care Managment Initial Assessment Date: 11/01/2022 Patient Name: Siobhan Haas : 1960 Patient Information Source of Information: Patient Cognition/Language: WFL - Within Functional Limits Permission given to speak with patient entry level account representative/caregiver as indicated: Confirmation of Payer with patient/family: Yes Payer Name: change to [employer] MEDICARE, EFFECTIVE 11/01/22 [place]: Confirmation of Primary Care Physician: Confirmed PCP [...] members Support Systems: Children, Family members, Friends/neighbors, Hinduism/aleksandr community Activities of Daily Living Ambulation: Independent [...] New insurance card copied- left VMM with [facility] financial office with update onnew insurance [...] follow for DCP assistance. Elin Vang RN [facility] Dkadtp22-13-4220 Note* Care Coordination - Elin Vang RN - 11/01/2022 10:28 AM EST Care Managment Initial Assessment Date: 11/01/2022 Patient Name: Siobhan Haas : 1960 Patient Information Source of Information: Patient Cognition/Language: WFL - Within Functional Limits Permission given to speak with patient entry level account representative/caregiver as indicated: Confirmation of Payer with [...] members Support Systems: Children, Family members, Friends/neighbors, Hinduism/aleksandr community Activities of Daily Living Ambulation: Independent [...] Pt has health insurance, which switched from [employer] eff today. New insurance card copied- left VMM with [facility] financial office with update onnew insurance [...] follow for DCP assistance. Elin Vang RN [facility] HospitalMwenzu99-78-6913 Note* Op Note - Rusty Mercado MD - 10/31/2022 5:05 PM EST Pre-operative [...] 62 y.o. female who was admitted to [facility] for[facility] leg infection. A recommendation for [...] patient's ASA was verified by the nurse machine printer and the anesthesiastaff. Fire risk was assessed. [...] other utilizing 0 Vicryl in an interrupted ieguvx-hp-tafeb fashion fullycovering the femur. The subcutaneous tissues [...] an outpatient in 2 weeks please call [phone] to make an appointment Any questions please page Ortho pager (resident manager acquisition) or call my office at [phone] [facility] HospitalRwwhew83-70-5740 Note* Op Note - Rusty Mercado MD - 10/31/2022 5:05 PM EST Pre-operative [...] 62 y.o. female who was admitted to [facility] for[facility] leg infection. A recommendation for [...] patient's ASA was verified by the nurse machine printer and the anesthesiastaff. Fire risk was assessed. [...] other utilizing 0 Vicryl in an interrupted xbcvwq-bl-htawa fashion fullycovering the femur. The subcutaneous tissues [...] an outpatient in 2 weeks please call [phone] to make an appointment Any questions please page Ortho pager (resident manager acquisition) or call my office at [phone] [facility] Qsdzew04-24-5107 Note* Care Coordination - Robi Trevino RN - 10/31/2022 2:57 PM EST To OR with family present. [facility] HospitalIeojdh42-52-3241 Note* Care Coordination - Robi Trevino RN - 10/31/2022 2:57 PM EST To OR with family present. [facility] HospitalRkpedn87-65-4227 Emergency department Note* Joanna Jose Ramon - 10/31/2022 6:22 AM EST Pt is experiencing some anxiety. Pt would like something to help with her anxiety. Joanna Jose Ramon 10/31/22 06 [facility] HospitalBtwvqo66-19-0725 Emergency department Note* Joanna Sorensenmpf - 10/31/2022 6:22 AM EST Pt is experiencing some anxiety. Pt would like something to help with her anxiety. Joanna Jose Ramon 10/31/22 06 * Chelsea Martinez RN - 10/30/2022 11:44 PM EST Report given to CINDY Marshall for lunch coverage x1 hour. Chelsea Martinez RN 10/30/22 2348 * Chelsea Martinez RN - 10/30/2022 10:41 PM EST Pt manager acquisition light requesting radha crackers, rosemary simin, and medicine for a headache. Dr. Collins messaged via [employer] chat. Awaiting response at this time. Pt given snacks and gingerale. Chelsea Martinez RN 10/30/22 5532 * Chelsea Martinez RN - 10/30/2022 9:00 PM EST This RN has given pt a regular hospital bed to increase comfort and maintain skin integrity. Pt's family member at has been given a recliner to sleep in. Call light in hand, side rails x2, pt has no requests at this time. Chelsea Martinez RN 10/30/222212 * Chelsea Martinez RN - 10/30/2022 7:30 PM EST Report received from CINDY Hernandez. This RN to assume care of pt at this time. Pt resting in bed with family at eating dinner tray. Pt has no requests at this time. Call light in hand, side rails x2. Chelsea Martinez RN 10/30/22 193 * Mary Lu RN - 10/30/2022 6:34 [...] on the right, sent in from Dr. Mercado to plan for AKA on the left tomorrow Nursing Notes were reviewed. 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 ([facility]) 07/27/2020 Asthma Cellulitis Constipation Depression Fibromyalgia GERD (gastroesophageal reflux disease) Hx of right BKA ([facility]) ([facility]) Hypertension Morbidly obese ([facility]) ([facility]) 02/03/2019 BMI 50.52 On home O2 FAY treated with BiPAP Osteoarthritis Osteomyelitis of right foot ([facility]) SCHEDULED FOR THE SURGERY ON 02/11/2019 Seasonal [...] Right 02/11/2019 FOOT SURGERY Right 2019 [place]OT [place]ERY Right 04/08/2019 I&D right foot [...] Right 05/06/2019 Right Below Knee Amputation (CPT 17463), #2 Excisional debridement right iliac crest (wound [...] the evening. cholecalciferol (Vitamin D-3) 1.25 MG (79927 UT) capsule Take by mouth 1 (one) [...] Narrative Has been in rehab facility in [place] Lives alone, son close Friends help SCREENINGS [...] BASIC METABOLIC PANEL PREPARE RBC PRODUCT CODE D1443L41 Unit Number [id number] Unit ABO O Unit RH POS Crossmatch interpretation COMP Dispense Status Transfused Blood Expiration Date Product Blood Type 5100 Unit Volume 300 PRODUCT CODE [id number] Unit Number [id number] Unit ABO O Unit RH POS Crossmatch [...] tablet 100 mg (100 mg Oral Given 10/31/22 2301) mometasone-formoterol (Dulera 100) 100-5 MCG/ACT inhaler 2 puff (2 puffs Inhalation Not Given 10/31/222229) citalopram (CeleXA) tablet 40 mg (has no administration in time range) acetaminophen (Tylenol) tablet 650 mg (650 mg Oral Given 11/01/2240) methocarbamol (Robaxin) tablet 1,000 mg (has no administration in time range) HYDROmorphone (Dilaudid) injection 0.25 mg ( IntraVENous See Alternative 11/01/2237) Or HYDROmorphone (Dilaudid) injection 0.5 mg (0.5 [...] Override Pull ( Override pull for Anesthesia 10/31/221602) LORazepam (Ativan) injection 0.5 mg (0.5 mg IntraVENous Given 10/31/222049) MDM elements: The patient presented with chief complaint of left lower extremity worsening infection, history of necrotizing fasciitis, sent in for admission from Dr. Mercado, has been on Keflex at home. The [...] 10/30/2022 02:48:44 PM PATIENT REFERRED TO: Rusty Mercado MD [address] [place] [address] Schedule an appointment as soon as possible [...] Morris RN 10/30/22 173 documented in this [facility]01-31-2023 Consult note* Lorne Winn MD - [...] was seen as an outpatient by Dr. Mercado with plans for an elective L AKA. Shepresented to the ED with worsening LLE pain and was seen by Dr. 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 ([facility]) 07/27/2020 Asthma Cellulitis Constipation Depression Fibromyalgia GERD (gastroesophageal reflux disease) Hx of right BKA ([facility]) ([facility]) Hypertension Morbidly obese ([facility]) ([facility]) 02/03/2019 BMI 50.52 On home O2 FAY treated with BiPAP Osteoarthritis Osteomyelitis of right foot ([facility]) SCHEDULED FOR THE SURGERY ON 02/11/2019 Seasonal [...] Right 02/11/2019 FOOT SURGERY Right 2019 [place]OT [place] Right 04/08/2019 I&D right foot [...] Right 05/06/2019 Right Below Knee Amputation (CPT 47967), #2 Excisional debridement right iliac crest (wound [...] Narrative Has been in rehab facility in [place] Lives alone, son close Friends help Social [...] with the resident s findings and plan. [facility] [employer] Work Phone: [phone] 956-177201-31-2023 Consult note* Lorne Winn MD - 10/31/2022 [...] was seen as an outpatient by Dr. Mercado with plans for an elective L AKA. Shepresented to the ED with worsening LLE pain and was seen by Dr. 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 ([facility]) 07/27/2020 Asthma Cellulitis Constipation Depression Fibromyalgia GERD (gastroesophageal reflux disease) Hx of right BKA ([facility]) ([facility]) Hypertension Morbidly obese ([facility]) ([facility]) 02/03/2019 BMI 50.52 On home O2 FAY treated with BiPAP Osteoarthritis Osteomyelitis of right foot ([facility]) SCHEDULED FOR THE SURGERY ON 02/11/2019 Seasonal [...] Right 02/11/2019 FOOT SURGERY Right 2019 [place]OT SUR[place]ERY Right 04/08/2019 I&D right foot [...] Right 05/06/2019 Right Below Knee Amputation (CPT 16195), #2 Excisional debridement right iliac crest (wound [...] Narrative Has been in rehab facility in [place] Lives alone, son close Friends help Social [...] resident s findings and plan. * Joanna Sandoval PA-C - 10/30/2022 3:06 PM ESTAssociated Order(s): IP CONSULT TO ORTHOPAEDIC SURGERY Images from the original note were not included. Ortho H&P/Consult Patient: Siobhan Haas Date of : 1960 Acct: [id number] PCP: Oj Maddox Date of Admission: (Not on file) Date of Service: Pt seen/examined on 10/30/2022 Chief Complaint: Left leg swelling History Of Present Illness: This is a 62 y.o. female with past medical history of bilateral pulmonary emboli (08/2022, currently on Eliquis) who presents to [facility] today (10/30/2022) withchief complaint of left leg swelling. The patient reports that her left leg symptoms began in 12/2021 following a diagnosis of necrotizingfasciitis. The patient reports that she underwent surgery for necrotizing fasciitis in 12/2021, and since the surgery, she has had difficulties with left lower extremity swelling. The patient has beencontinuing her care with Dr. Mercado, and most recently saw Dr. Mercado on 10/23/2022. At that time, discussed with patient undergoing left above-knee amputation on 11/07/2022. The patient states that typically, her left lower extremity swelling reduces after a period of lying supine. However, the patient reports that she awoke this morning, and had increased left lower extremity swelling/erythema. The patient called into the office today due to increased swelling, and Dr. 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 ([facility]) 07/27/2020 Asthma Cellulitis Constipation Depression Fibromyalgia GERD (gastroesophageal reflux disease) Hx of right BKA ([facility]) ([facility]) Hypertension Morbidly obese ([facility]) ([facility]) 02/03/2019 BMI 50.52 On home O2 FAY treated with BiPAP Osteoarthritis Osteomyelitis of right foot ([facility]) SCHEDULED FOR THE SURGERY ON 02/11/2019 Seasonal [...] Right 02/11/2019 FOOT SURGERY Right 2019 [place] FOOT [place]GERY Right 04/08/2019 I&D right foot [...] Right 05/06/2019 Right Below Knee Amputation (CPT 20630), #2 Excisional debridement right iliac crest (wound [...] Historical Provider, cholecalciferol (Vitamin D-3) 1.25 MG (75562 UT) capsule Take by mouth 1 (one) [...] (REFER TO PRESCRIPTION NOTES). 09/05/22 Historical Provider, MD famotidine (Pepcid) 20 MG tablet Take 20 [...] , Rfl: cholecalciferol (Vitamin D-3) 1.25 MG (72582 UT) capsule, Take by mouth 1 (one) [...] to the left knee PLAN: -D/w Dr. Mercado -Plan for OR 10/31/2022 for left above-knee [...] in case of OR, page ortho pgr [phone] with clearance status -X-rays pending -Orthopaedic surgery will follow. Please page manager acquisition orthopaedic resident for questions or concerns. documented in this [facility]01-30-2023 Emergency department Note* Chelsea Martinez RN - 10/30/2022 11:44 PM EST Report given to CINDY Marshall for lunch coverage x1 hour. Chelsea Martinez RN 10/30/22 2344 [id number] Emergency department Note* Chelsea Martinez RN - 10/30/2022 10:41 PM EST Pt manager acquisition light requesting radha crackers, rosemary simin, and medicine for a headache. Dr. Collins messaged via [employer]. Awaiting response at this time. Pt given snacks and gingerale. Chelsea Martinez RN 10/30/22 224 [id number] Emergency department Note* Chelsea Martinez RN - 10/30/2022 9:00 PM EST This RN has given pt a regular hospital bed to increase comfort and maintain skin integrity. Pt's family member at has been given a recliner to sleep in. Call light in hand, side rails x2, pt has no requests at this time. Chelsea Martinez RN 10/30/222212 [facility]09-15-6151 Emergency department Note* Chelsea Martinez RN - 10/30/2022 7:30 PM EST Report received from CINDY Hernandez. This RN to assume care of pt at this time. Pt resting in bed with family at eating dinner tray. Pt has no requests at this time. Call light in hand, side rails x2. Chelsea Martinez RN 10/30/22 193 [facility]Jtueqe97-73-6117 Emergency department Note* Mary Lu RN - 10/30/2022 6:34 PM EST Patient received dinner tray Mary Lu RN 10/30/22 1834 [id number] Hospital Discharge instructions* Discharge Instructions* Joanna Sandoval PA-C - 10/30/2022 4:56 PM EST General [...] Right 02/11/2019 FOOT SURGERY Right 2019 [place] FOOT [place]ERY Right 04/08/2019 I&D right foot [...] Right 05/06/2019 Right Below Knee Amputation (CPT 44306), #2 Excisional debridement right iliac crest (wound [...] Carepath Conversion Performed [place] [address] Mercado. BKA stump complication (HCC) Amputation stump complicated [...] Problems- Carepath Conversion Overview: Resume HCTZ and minal i Resume HCTZ and minal i Pansystolic murmur Overview Signed 07/16/2022 6:33 AM by Interface, Incoming Problems- Carepath Conversion Comment on above: Holosystolic murmur, 1/6 Chest wall pain Asthma Asthma with acute exacerbation Overview Signed 07/16/2022 6:33 AM by Interface, Incoming Problems- [facility]path Conversion Overview: IV solumedrol IV levofloxacin Duo neb Q2/4 hrs Oxygen via [place] Pulmonolgy consult Resumed advair /nasal steroids/singulaire Pain [...] (BMI) Gastroesophageal reflux disease Hiatal hernia Callosity long term care pharmacist (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 antibiotics Dehiscence of closure [...] Total assistance Toileting Total assistance Feeding Independent Leave Specialist Independent Med Delivery yes Wound Care Documentation and Therapy: Wound/Incision 10/30/22 Other (comment) Pretibial Left (Active) Site Assessment Unable to assess 11/01/221999 Alexus-Wound Assessment [place] 10/30/22 2153 [place] None 11/01/221999 Drainage Amount [...] Details Model IP RISK OF UNPLANNED READMISSION [[id number]] is not released. No score information can be retrieved Discharging to Facility/ Agency Name: [facility] Address:[address] [place] [address] Fax: Dialysis Facility (if applicable) Name: Address: Dialysis Schedule: Phone: Fax: Preparation Plant Repairer/Truss Maker signature: ICIAN SECTION Prognosis: excellent Condition at Discharge: stable Rehab Potential (if transferring to Rehab): excellent Recommended Labs or Other Treatments After Discharge: CBC and BMP in 3 days Physician Certification: I certify the above information and transfer of Siobhan Haas is necessary for the continuing treatment of the diagnosis listed and that she requires halfway facility for less than 30 days. Update Admission H&P: No change in H&P PHYSICIAN SIGNATURE: documented in this [facility]01-30-2023 Emergency department Note* Micaela Rivera - 10/30/2022 4:02 PM EST PT NEEDS ULTRA SOUND FOR LABS AND IV PLACEMENT / COULD NOT OBTAIN LABS / 2 ATTEMPTS ON IV / AAW / STICKERS PLACED WITH PTS PAPERWORK. Micaela Rivera 10/30/22 1603 [facility] HospitalRgoxid54-22-4334 History and physical note* CARMELA Ramos - 10/30/2022 3:26 PM EST Images from the original note were not included. 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 ([facility]) 07/27/2020 Asthma Cellulitis Constipation Depression Fibromyalgia GERD (gastroesophageal reflux disease) Hx of right BKA ([facility]) ([facility]) Hypertension Morbidly obese ([facility]) ([facility]) 02/03/2019 BMI 50.52 On home O2 FAY treated with BiPAP Osteoarthritis Osteomyelitis of right foot ([facility]) SCHEDULED FOR THE SURGERY ON 02/11/2019 Seasonal [...] normal structures that can lead to long distance operator problems of pain and/or dysfunction,the potential for non-healing wounds/incisions that may require further operative intervention in the future including more a proximal amputation. In addition potentially life threatening complications (DVT, PE, MO, stroke,and even ) at the time of surgery and after surgery were discussed. Siobhan and Siobhan's family understand that no guarantees with regard to surgical outcome can be givenand none were implied. [facility] [employer] ([employer]) Work Phone: [phone] History and physical note* CARMELA Ramos - 10/30/2022 3:26 PM EST Images from the original note were not included. 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 ([facility]) 07/27/2020 Asthma Cellulitis Constipation Depression Fibromyalgia GERD (gastroesophageal reflux disease) Hx of right BKA ([facility]) ([facility]) Hypertension Morbidly obese ([facility]) ([facility]) 02/03/2019 BMI 50.52 On home O2 FAY treated with BiPAP Osteoarthritis Osteomyelitis of right foot ([facility]) SCHEDULED FOR THE SURGERY ON 02/11/2019 Seasonal [...] normal structures that can lead to long distance operator problems of pain and/or dysfunction,the potential for non-healing wounds/incisions that may require further operative intervention in the future including more a proximal amputation. In addition potentially life threatening complications (DVT, PE, MO, stroke,and even ) at the time of surgery and after surgery were discussed. Siobhan and Siobhan's family understand that no guarantees with regard to surgical outcome can be givenand none were implied. documented in this [facility]01-30-2023 Consult note* NELSON Doll - 10/30/2022 3:06 PM ESTAssociated Order(s): IP CONSULT TO ORTHOPAEDIC SURGERY Images from the original note were not included. Ortho H&P/Consult Patient: Siobhan Haas Date of : 1960 Acct: [id number] PCP: Oj Maddox Date of Admission: (Not on file) Date of Service: Pt seen/examined on 10/30/2022 Chief Complaint: Left leg swelling History Of Present Illness: This is a 62 y.o. female with past medical history of bilateral pulmonary emboli (08/2022, currently on Eliquis) who presents to [facility] today (10/30/2022) withchief complaint of left leg swelling. The patient reports that her left leg symptoms began in 12/2021 following a diagnosis of necrotizingfasciitis. The patient reports that she underwent surgery for necrotizing fasciitis in 12/2021, and since the surgery, she has had difficulties with left lower extremity swelling. The patient has beencontinuing her care with Dr. Mercado, and most recently saw Dr. Mercado on 10/23/2022. At that time, discussed with patient undergoing left above-knee amputation on 11/07/2022. The patient states that typically, her left lower extremity swelling reduces after a period of lying supine. However, the patient reports that she awoke this morning, and had increased left lower extremity swelling/erythema. The patient called into the office today due to increased swelling, and Dr. 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 ([facility]) 07/27/2020 Asthma Cellulitis Constipation Depression Fibromyalgia GERD (gastroesophageal reflux disease) Hx of right BKA ([facility]) ([facility]) Hypertension Morbidly obese ([facility]) ([facility]) 02/03/2019 BMI 50.52 On home O2 FAY treated with BiPAP Osteoarthritis Osteomyelitis of right foot ([facility]) SCHEDULED FOR THE SURGERY ON 02/11/2019 Seasonal allergies Shortness of breath URSULA (stress urinary incontinence, female) Vertigo Past Surgical History: Past Surgical History: Procedure Laterality Date ABCESS DRAINAGE Right 08/07/2020 I&D of right BKA hematoma ANKLE SURGERY Left 12/19/2021 ankle I and D with placement of wound vac - dr schaefer BELT ABDOMINOPLASTY BREAST SURGERY 2006 and abdomin removal for excess COLONOSCOPY COLONOSCOPY EXTREMITY SURGERY Left 01/24/2022 debridement necrotizing fasciitis LLE, wound vac FOOT SURGERY Right 02/11/2019 FOOT SURGERY Right 2019 [place] FOOT SURGERY Right 04/08/2019 I&D right foot [...] Right 05/06/2019 Right Below Knee Amputation (CPT 74036), #2 Excisional debridement right iliac crest (wound [...] Historical Provider, cholecalciferol (Vitamin D-3) 1.25 MG (70301 UT) capsule Take by mouth 1 (one) [...] , Rfl: cholecalciferol (Vitamin D-3) 1.25 MG (82654 UT) capsule, Take by mouth 1 (one) [...] Narrative Has been in rehab facility in [place] Lives alone, son close Friends help Social [...] to the left knee PLAN: -D/w Dr. Mercado -Plan for OR 10/31/2022 for left above-knee [...] pending -Orthopaedic surgery will follow. Please page manager acquisition orthopaedic resident for questions or concerns. [facility]01-30-2023 Emergency department Note* Nicci Morris RN - 10/30/2022 1:17 PM EST Bed: 15 Expected date: Expected time: Means of arrival: Comments: triage Nicci Morris RN 10/30/22 6922 [facility]01-30-2023 Physician Emergency department Note* Himanshu Schaefer MD [...] on the right, sent in from Dr. Mercado to plan for AKA on the left tomorrow Nursing Notes were reviewed. 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 ([facility]) 07/27/2020 Asthma Cellulitis Constipation Depression Fibromyalgia GERD (gastroesophageal reflux disease) Hx of right BKA ([facility]) ([facility]) Hypertension Morbidly obese ([facility]) ([facility]) 02/03/2019 BMI 50.52 On home O2 FAY treated with BiPAP Osteoarthritis Osteomyelitis of right foot ([facility]) SCHEDULED FOR THE SURGERY ON 02/11/2019 Seasonal [...] Right 02/11/2019 FOOT SURGERY Right 2019 [place] FOOT SURGERY Right 04/08/2019 I&D right foot [...] Right 05/06/2019 Right Below Knee Amputation (CPT 71372), #2 Excisional debridement right iliac crest (wound [...] the evening. cholecalciferol (Vitamin D-3) 1.25 MG (54501 UT) capsule Take by mouth 1 (one) [...] Narrative Has been in rehab facility in [place] Lives alone, son close Friends help SCREENINGS [...] BASIC METABOLIC PANEL PREPARE RBC PRODUCT CODE [id number] Unit Number [id number] Unit ABO O Unit RH POS Crossmatch interpretation COMP Dispense Status Transfused Blood Expiration Date Product Blood Type 5100 Unit Volume 300 PRODUCT CODE [id number] Unit Number [id number] Unit ABO O Unit RH POS Crossmatch [...] tablet 650 mg (650 mg Oral Given 11/01/2240) methocarbamol (Robaxin) tablet 1,000 mg (has no administration in time range) HYDROmorphone (Dilaudid) injection 0.25 mg ( IntraVENous See Alternative 11/01/2237) Or HYDROmorphone (Dilaudid) injection 0.5 mg (0.5 [...] Override Pull ( Override pull for Anesthesia 10/31/221602) LORazepam (Ativan) injection 0.5 mg (0.5 mg IntraVENous Given 10/31/222049) MDM elements: The patient presented with chief complaint of left lower extremity worsening infection, history of necrotizing fasciitis, sent in for admission from Dr. Mercado, has been on Keflex at home. The [...] 10/30/2022 02:48:44 PM PATIENT REFERRED TO: Rusty Mercado MD [address] [facility] [address] [place] [address] Schedule an appointment as soon as possible [...] signed) Emergency Medicine Provider Himanshu Schaefer MD 11/01/22719 [facility] [id number] Telephone encounter Note* Telephone Encounter - CARMELA Ramos - 10/30/2022 10:31 AM EST Email received in clinical email from patient this morning with complaint of increased swelling overnight with tightness of the leg and increased discomfort. I called and spoke with patient after discussing with Dr. Mercado, and advised her if she would like to have her surgery done tomorrow, she would need to go to the ER and get admitted today so that she can be ready for surgery tomorrow. Patient voiced understanding and is going to go to ER today. [facility] [employer] ([employer]) Work Phone: [phone] Miscellaneous Notes* Telephone Encounter - CARMELA Ramos - 10/30/2022 10:31 AM EST Email received in clinical email from patient this morning with complaint of increased swelling overnight with tightness of the leg and increased discomfort. I called and spoke with patient after discussing with Dr. Mercado, and advised her if she would like to have her surgery done tomorrow, she would need to go to the ER and get admitted today so that she can be ready for surgery tomorrow. Patient voiced understanding and is going to go to ER today. documented in this [facility]01-23-2023 History of Present illness Narrative* Rusty Mercado MD - 10/23/2022 2:00 PM EST Images from the original note were not included. 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 ([facility]) 07/27/2020 Asthma Cellulitis Constipation Depression Fibromyalgia GERD (gastroesophageal reflux disease) Hx of right BKA ([facility]) ([facility]) Hypertension Morbidly obese ([facility]) ([facility]) 02/03/2019 BMI 50.52 On home O2 FAY treated with BiPAP Osteoarthritis Osteomyelitis of right foot ([facility]) SCHEDULED FOR THE SURGERY ON 02/11/2019 Seasonal [...] normal structures that can lead to long distance operator problems of pain and/or dysfunction,the potential for non-healing wounds/incisions that may require further operative intervention in the future including more a proximal amputation. In addition potentially life threatening complications (DVT, PE, MO, stroke,and even ) at the time of surgery and after surgery were discussed. Siobhan and Siobhan's family understand that no guarantees with regard to surgical outcome can be givenand none were implied. Follow up in about 2 weeks (around 11/06/2022). Plan for surgery following day 11/07/22 Electronically signed by CARMELA Ramos [facility] Department of Orthopedic surgery 10/23/2022 4:45 PM Voice recognition was used for portions of this note and although it was reviewed prior to signing some incorrect words or phrases could be present. * Rusty Mercado MD - 10/23/2022 2:00 PM EST SURGERY SCHEDULING SHEET Procedure: left Above knee amputation (24178) CPT codes: see above Diagnosis: Left leg cellulitis [L03.116] Location for Surgery: [facility] Schedule for: 2.5 hours Admission Type: Outpatient with Bed Medical Clearance: Yes with PCP/IMS Antibiotic: Ancef 3g IV Anesthesia: General + Regional Position and Table type: Supine on Regular OR table Radiology: None Equipment: Wide saw blade and narrow saw blade and VAC dressings documented in this [facility]01-20-[address] Trinidad [facility] October 20, 2022 11:38am Note Date/Time October 20, 2022 1 1:34am [facility] Medical Records Department [address] [place] [address] Instructions for Home/Discharge Instructions 10/20/22 1106 MR#: [id number] Acct: [id number] Name: SIOBHAN HAAS Rep #:[id number] : 1960 62 From: Rigo jackson MD PCP: Oj Maddox, GINO Sta tus:ADM IN Discharge Instructions Diet Discharge [...] PO BID Referrals / Follow Up: Rusty Mercado MD [Non-Staff] - 10/23/22 Oj Maddox NP, PREPARATION PLANT REPAIRER-C [Primary Care Provider] - Within 1 Week Disposition Disposition (needs filled in before D/C Order can be placed): Home, Self Care 10/20/22 1138<Electronically signed by Rigo Trinidad MD>Rigo Trinidad MD CC: PREPARATION PLANT REPAIRER-C Oj Maddox; Dr. Mag Cantu MD ~ Signed [facility] Work Phone: 1(154) 606-478601-19-[address] Trinidad [facility] October 19, 2022 11:51am Note Date/Time October 19, 2022 1 1:50am [facility] Medical Records Department [address] [place] [address] Progress Note - Hospitalist 10/19/22 1147 MR#: [id number] Acct: [id number] Name: SIOBHAN HAAS Rep #:[id number] : 1960 62 From: Rigo jackson MD PCP: GINO Vasques Sta tus:ADM IN Location: [place] [address] Subjective Subjective Doing well today, remains afebrile [...] Intake and Output for Last 24 Hours 01/10/19/22 10/20/22 03:59 03:59 03:59 Intake Total 990 [...] % (Auto) 59.2, Lymph % (Auto) 20.7, Rabun % (Auto) 14.6 H, Eos % (Auto) [...] DVT: Eliquis Charges/Coding Visit Charges Inpatient E&M: 40841 Subs Hosp L2 10/19/22 1151 <Electronically signed by Rigo Trinidad MD> Cosigner Signature (if applicable): CC: ~ Signed [facility] Work Phone: [phone] 210-914701-19-2023 Telephone encounter Note* Telephone Encounter - Andie [...] her for Sunday for hospital follow up [facility]73-29-6081 Miscellaneous Notes* Telephone Encounter - Andie Amador [...] hospital follow up * Telephone Encounter - Amberly Schaefer MD - 10/17/2022 11:59 AM EST She will need to see Jess, unfortunately I dont have anything more to offer * Telephone Encounter - Vishnu Arias - 10/17/2022 11:21 AM EST Pt is currently hospitalized in [facility], admitted for cellulitis. Daughter wanted to let you know for follow up. Please advise as needed. documented in this [facility]01-18-[address] Trinidad [facility] October 18, 2022 10:18am Note Date/Time October 18, 2022 1 0:18am [facility] Medical Records Department [address] [place] [address] Progress Note - Hospitalist 10/18/22 1012 MR#: [id number] Acct: [id number] Name: SIOBHAN HAAS Rep #:[id number] : 1960 62 From: Rigo jackson MD PCP: Oj Maddox, PREPARATION PLANT REPAIRERRona August tus:ADM IN Location: [place] [address] Subjective Subjective Doing well today, she has [...] (Auto) 67.3, Lymph % (Auto) 16.7 L, Rabun % (Auto) 12.0 H, Eos % (Auto) [...] Cosigner Signature (if applicable): CC: ~ Signed [facility] Work Phone: [phone]) 688-886201-17-[address] Trinidad [facility] October 17, 2022 11:51am Note Date/Time October 17, 2022 1 1:51am [facility] Medical Records Department [address] [place] [address] Progress Note - Hospitalist 10/17/22 1145 MR#: [id number] Acct: [id number] Name: SIOBHAN HAAS Rep #:[id number] : 1960 62 From: Rigo jackson MD PCP: GINO Vasques Sta tus:ADM IN Location: [place] [address] Subjective Subjective Doing well, no significant issues [...] 72.7 H, Lymph % (Auto) 12.6 L, Rabun % (Auto) 11.9 H, Eos % (Auto) [...] DVT: Eliquis Charges/Coding Visit Charges Inpatient E&M: 51673 Subs Hosp L2 10/17/22 1151 <Electronically signed by Rigo Trinidad MD> Cosigner Signature (if applicable): CC: ~ Signed [facility] Work Phone: 1([phone]) 752-434001-17-2023 Telephone encounter Note* Telephone Encounter - Amberly Schaefer MD - 10/17/2022 11:59 AM EST She will need to see Jess, unfortunately I dont have anything more to offer [facility] [employer] ([employer]) Work Phone: [phone] Miscellaneous Notes* Telephone Encounter - Amberly Schaefer MD - 10/17/2022 11:59 AM EST She will need to see Jess, unfortunately I dont have anything more to offer * Telephone Encounter - Vishnu Arias - 10/17/2022 11:21 AM EST Pt is currently hospitalized in [facility], admitted for cellulitis. Daughter wanted to let you know for follow up. Please advise as needed. documented in this [facility]01-17-2023 Telephone encounter Note* Telephone Encounter - Vishnu Arias - 10/17/2022 11:21 AM EST Pt is currently hospitalized in [facility], admitted for cellulitis. Daughter wanted to let you know for follow up. Please advise as needed. [facility]q79-08-1836 History and physical note Author Dr. Cantu [facility] October 16, 2022 6:42am Note Date/Time October 16, 2022 1 :29am [facility] Medical Records Department [address] [place] [address] H&P Exam - Hospitalist 10/16/22122 MR#: [id number] Acct: [id number] Name: SIOBHAN HAAS Rep #:[id number] : 1960 62 From: Mag Cantu MD PCP: GINO Vasques tus:ADM IN Location: [facility] HOSPITALU116- 1 HPI - General General Date of Admission: 10/16/22 Date of Service: 10/16/22 Chief Complaint: LLE redness, pain and swelling HPI Narrative SIOBHAN WALDO, is a 62 F with a PMH [...] December 2021 and had fasciotomy done at [facility]. Vitals in the ED at time of review were BP of 128/44, RR of 33, MO of 99 and temp of 100.8F. She [...] IV linezolid and zosyn in the ED. [facility], [facility] Medical History (Updated 10/16/22 @ 01:30 by [...] (Reviewed 10/04/22 @ 08:19 by Adwoa Cruz PREPARATION PLANT REPAIRER, PREPARATION PLANT REPAIRER-C) Mother Hypertension Cancer Pancreatic Diabetes Father Cancer [...] (Auto) 84.3 H, Lymph %(Auto) 7.6 L, Rabun % (Auto) 6.4, Eos % (Auto) 1.0, [...] elects to be full code. * Total ppgh-oz-wqly time 17 minutes. Charges/Coding Visit Charges Inpatient E&M: 83745 Init Hosp L3 Procedures Hospitalists Procedures: 33012 Advncd Care Plan 30 Min 10/16/22 0642 <Electronically signed by Mag Cantu MD> Cosigner Signature (if applicable): CC: GINO Maddox; Dr. Mag Cantu MD~ Signed [facility] Work Phone: 1(309) 301-431901-16-2023 Discharge summary Author David Felipe [facility] October 16, 2022 3:40am Note Date/Time October 16, 2022 1 :30am [facility] Medical Records Department [address] [place] [address] Emergency Department Summary 10/16/22 MR#: [id number] Acct: [id number] Name: SIOBHAN HAAS Rep #:[id number] : 1960 62 From: David Felipe DO PCP: GINO Vasques tus:ADM IN Location: [place] [address] HPI History of Present Illness Chief Complaint: [...] therefore comes to the hospital for evaluation [facility] Medical History (Updated 10/16/22 @ 02:49 by [...] (Reviewed 10/04/22 @ 08:19 by Adwoa Cruz PREPARATION PLANT REPAIRER, PREPARATION PLANT REPAIRER-C) Mother Hypertension Cancer Pancreatic Diabetes Father Cancer [...] 84.3 H Lymph % (Auto) 7.6 L Rabun % (Auto) 6.4 Eos % (Auto) 1.0 [...] (Auto) Neut % (Auto) Lymph % (Auto) Rabun % (Auto) Eos % (Auto) Baso % [...] 0:42 EST Reading Location ID and State: [id number] / [employer] Tel , Service support , Tibia/Fibula X-Ray [...] Chronic wound of extremity, Current use of mcfp anticoagulation Disposition Disposition: Acute Care Hospital [facility] Discharge Date/Time: 10/16/22 02:11 What to do if you have Problems For any increased pain, shortness of breath, bleeding, nausea or vomiting, chestpain, or any unexpected problems, contact your Primary Care Provider. Call [facility] ([phone]) or report to the closest Emergency Room. Call 911 if necessary. 10/16/22 0340 <Electronically signed by David Felipe DO> Cosigner Signature (if applicable): CC: PREPARATION PLANT REPAIRERRona Maddox ~ Signed [facility] Work Phone: 1(394) 482-658212-29-2022 Telephone encounter Note* Telephone Encounter - Diana Tang PA-C - 09/28/2022 4:27 PM EST Called and spoke with patient. She had some questions about upcoming pulmonology appointment. She is feeling less short of breath at rest but still has problems getting up and moving around getting short or breath. Her inhaler is helping. She will go to follow up with sample hand next week who will run more testing for her b/l PEs [facility] Work Phone: 1([phone]) 844-202812-29-2022 Miscellaneous Notes* Telephone Encounter - Diana Tang PA-C - 09/28/2022 4:27 PM EST Called and spoke with patient. She had some questions about upcoming pulmonology appointment. She is feeling less short of breath at rest but still has problems getting up and moving around getting short or breath. Her inhaler is helping. She will go to follow up with sample hand next week who will run more testing [...] Name of caller: Siobhan Contact phone number: [phone] Relationship to Patient: patient Provider: Jess Practice: Ortho Chief Complaint/Reason for Call: Pt called stating that she sent pictures of her leg to the ortho email to added to her chart.Please advise pt of receipt Best time of day caller can be reached: AM Patient advised that office/PCP has 24-48 business hours to return their call: Yes documented in this [facility]12-29-2022 Telephone encounter Note* Telephone Encounter - Cindy Tovar - 09/28/2022 1:55 PM EST Pt called in requesting to speak with Diana, stated she had some questions. Please Advise. [facility] Telephone encounter Note* Telephone Encounter - Diana Tang PA-C - 09/26/2022 2:57 PM EST Called patient and LVM. Pictures look better. Wanted to know how she was feeling overall. [address]k13-36-8766 Telephone encounter Note* Telephone Encounter - Diana Tang PA-C - 09/26/2022 2:56 PM EST I will give her a call. She doesn't have mychart [address]Btrrxo54-85-6400 Telephone encounter Note* Telephone Encounter - Diana Tang PA-C - 09/26/2022 2:54 PM EST Thank you, I will send patient mychart message. Looks like it is improving since last time! [address]Gssjdu43-37-7120 Telephone encounter Note* Telephone Encounter - Andie Amador MA - 09/26/2022 2:11 PM EST Jess is out this week. Jennifer is out today. I wanted someone to lay eyes on this and advise. [facility] Ilaolg65-89-9965 Telephone encounter Note* Telephone Encounter - Andie Amador MA - 09/26/2022 8:25 AM EST Images from the original note were not included. [facility] [id number] Telephone encounter Note* Telephone Encounter - Andie Amador MA - 09/26/2022 8:25 AM EST Images from the original note were not included. [facility] [id number] Telephone encounter Note* Telephone Encounter - Brian Miguel Angel - 09/25/2022 2:47 PM EST Name of caller: Siobhan Contact phone number: [phone] Relationship to Patient: patient Provider: Jess Practice: Ortho Chief Complaint/Reason for Call: Pt called stating that she sent pictures of her leg to the ortho email to added to her chart.Please advise pt of receipt Best time of day caller can be reached: AM Patient advised that office/PCP has 24-48 business hours to return their call: Yes [facility] [id number] NoteHospitalist Discharge Summary Siobhan Haas : 1960 Admit date: 01/21/2022 Discharge date: 02/01/2022 Admitting Physician: Julianna Brown MD Primary Care Physician: Oj Maddox, SUPERVISOR HAND SILVERING - DATA MINING ANALYST Visit Status: Admission Code Status: Full Code [...] BKA (HCC) ? Hypertension ? Morbidly obese ([facility]) 02/03/2019 BMI 50.52 ? On home O2 [...] discharged in stable condition to home with [facility] services. Greater than 30 minutes spent [...] MG tablet Commonly kno (more content not included)...[facility]04-28-2022 Note [facility] Department of Radiology Post Procedure Progress Note Pre-Procedure Diagnosis: IV access required. Procedure Performed: Right IJ triple lumen catheter. Anesthesia: Local Findings: Widely patent right IJ. Outcomes: Successful line placement. The tip is in the SVC. It is ready for use. Estimated Blood Loss: Minimal Immediate Complications: None Final report to follow in Radiology Results. [facility]04-13-2022 History of Present illness Narrative* Jenae Wright [...] from OR via cart, spont. Resp. With RN OUTPATIENT SURGERY in attendance. Placed on monitor. Monitor alarms on in PACU Pt. Responds to voice. Simple O2 mask on. documented in this [facility] Work Phone: 1(472) 780-817804-13-2022 Hospital Discharge instructions* Instructions* Diana Tang PA-C - 01/11/2022 Please leave the wound vac on, clean, dry and intact until follow up appointment in 1 week. It should stay at continuous suction 125 mmHg. You should leave the thigh bandage on, dry and intact until your follow up appointment. If it leaks/bleeds through the bandage you can reinforce this with gauze and minal bandage. You can WBAT with the operative extremity. You can take the prescribed Percocet as needed with pain relief after surgery. documented in this [facility] Work Phone: 1(908) 458-802303-21-2022 History of Present illness Narrative* Didi Aguilar [...] and crackers, pt VS stable, pt friend Shen at bedside . Pt demonstrated use of incentive spirometer and verbalized understanding , Will monitor * Didi Aguilar RN - 12/19/2021 10:53 AM EDT Pt received from OR via cart, spont. Resp. With RN OUTPATIENT SURGERY in attendance. Placed on monitor. Monitor alarms [...] the night before and morning of surgery. [facility] tour teeth,floss and use a mouthwash. No powder ,lotion , deodorant ,make up or hair spray documented in this [facility] Work Phone: 1(229) 537-398303-21-2022 Hospital Discharge instructions* Instructions* Diana Tang PA-C - 12/19/2021 Bandage: Keep wound vac on and set at continuous suction at 125 mmHg at all times. There is white gauze bhavana minal bandage over the wound vac material. Please keep the dressing on, clean and dry until follow up. You will see us 2 weeks from the time of surgery. You will have wound vac changes 2 times weekly. Please send photos with every wound vac change to our email address for review. Please send clinical photos to [email or web address] Please include your name and date of [...] hour you are awake. documented in this [facility] Work Phone: 1(809) 830-374702-17-2022 NotePatient Name: Siobhan Haas Date of : 1960 Date: 11/22/21 Discharge Summary Admit date: 11/17/2021 Discharge date and time: 11/21/2021 2:56 PM Admitting Physician: Rusty Mercado MD Admission Diagnoses: Dehiscence of LEFT ankle [...] condition compared to preoperative condition. Disposition: Per - home per patient's wishes Discharge Medications: [...] Your Medications These medications were sent to [facility] - [place], [place] - [address] - P [phone] - F [phone] [address] [place] [address] ? aspirin 81 MG chewable tablet ? [...] day 3 Follow-up visit with Dr Rusty Mercado MD in 2 weeks John Hebert PGY-4 Orthopaedic Surgery 11/22/2021 9:33 AM [id number] [facility]02-01-2022 NoteDischarge Summary Siobhan Haas : 1960 ADMIT DATE: 10/25/2021 DISCHARGE DATE: 11/01/2021 PRIMARY CARE PHYSICIAN: Oj Maddox APRN - [facility] VISIT STATUS: Admission CODE STATUS: Full Code DISCHARGE DIAGNOSES: Active Problems: Infected wound long term care pharmacist (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 antibiotics Resolved Problems: * [...] Your Medications These medications were sent to [facility] - [place], [place] - [address] - P [phone] - F [phone] [address] [place] [address] ? aspirin 81 MG chewable tablet Information about where to get these medications is not yet available Ask your nurse or doctor about these medications ? oxyCODONE 5 MG immediate release tablet DIET: ADULT DIET; Regular ACTIVITY: up with assist COMPLEXITY OF FOLLOW UP: [] Moderate Complexity: follow up within 7-14 calendar days (75399) [] Severe Complexity: follow up within 7 calendar days (90718) FOLLOW UP TESTING, PENDING RESULTS OR REFERRALS AT TRANSITIONAL CARE VISIT: [] Yes [] No PENDING STUDIES: No DISPOSITION: Home FACILITY/HOME CARE AGENCY NAME: Follow up with [facility] [address] [place] [id number] In 1 week For wound re-check, For suture removal Rusty Mercado MD [address] [place] [address] Center[address] [place] [address] Go on 11/04/2021 2:15PM, left ankle wound re-check [facility] DATA MINING ANALYST [address] [place] [address] Schedule an appointment as soon as possible for a visit on INSTRUCTIONS TO MA/SW: Please call patient on day after discharge (must document patient contacted within 2 business days of discharge). FOLLOW UP QUESTIONS FOR MA/SW: 1. Did you get medications filled and taking them as instructed from (more content not included)...[facility]12-29-2021 NoteInternal Medicine Discharge Summary Patient ID: Siobhan Haas Patient's PCP: Oj Maddox, [facility] Admit Date: 09/24/2021 Discharge Date: 09/28/2021 Admitting [...] BKA (HCC) ? Hypertension ? Morbidly obese ([facility]) 02/03/2019 BMI 50.52 ? On home O2 [...] Commonly known as: L (more content not included)...[facility]12-25-2021 NoteEmergen Medicine Attending Note I performed a history [...] are mis-transcribed.) MD Rigo Galan MD 09/24/21 1818[facility]12-08-2021 Evaluation + Plan note Diagnostic Tests Pending * [facility] Lab Send Out (Non-Blood Specimens) 09/07/21 * Histoplasma Ab, ID 09/07/21 Future Scheduled Tests Radiology* XR Chest 2 Views (PA & Lateral) 09/06/21 * XR Hip Minimum 2 Views Left 10/05/20 * MA Mammo Screening Bilateral w/ Alo 01/28/21 [facility] 12-07-2021 Evaluation + Plan note Future Scheduled Tests Laboratory* Lipid Profile 09/22/22 * Microalbumin Level Urine 09/22/22 * Vitamin D Level 09/22/22 * Complete Metabolic Panel 09/22/22 Radiology* XR Chest 2 Views (PA & Lateral) 09/06/21 [facility] 11-04-2021 History of Present illness Narrative* Didi [...] from OR via cart, spont. Resp. With RN OUTPATIENT SURGERY in attendance. Placed on monitor. Monitor alarms on in PACU documented in this [facility] Work Phone: 1(582) 786-205611-04-2021 Hospital Discharge instructions* Discharge Instr - Activity* Jennifer Jackson PA - 08/04/2021 9:47 AM EDT Weight-bearing and post-operative activity Dr Mercado wants you to be nonweight bearing on the Left lower extremity except for transfers. You will continue this weight bearing restriction until your 2 week followup and then your ability to put weight on the operative extremity will be updated. If you have any problems maintaining this weight bearing status please call the office so that appropriate instructions can be given. Dr. Mercado wants you to get up once per [...] moving around during the day, let Dr Mercado know. * Discharge Instr - Diet* Jennifer Jackson PA - 08/04/2021 9:47 AM EDT Good [...] local grocery stores, pharmacies, and chain super-stores. If you have any questions about your diet or nutrition, call the hospital and ask for the dietitian. * Additional Instructions* Jennifer Jackson PA - 08/04/2021 Images from the original note were not included. If you have any questions please call Dr Mercado's office ([phone]), all calls after 4:30 pm or anytime on Sunday or Sunday go through the answering service. The nurse at the answering service will triage your call to determine if the at night on-call physician needs to be called (this may notbe Dr Mercado but one of his partners if Dr Mercado is not manager acquisition). Any calls regarding medication refills will be [...] or starts to feel uncomfortable call Dr Mercado's office immediately ([phone]). Leave the dressing in place, you do not need to change it unless you are instructed to do so by . If there are problems with the dressing (it feels to tight, too loose, it gets wet) call 's office. If you see any blood on the bandage reinforce it on the surface with gauze and an minal bandage and call Dr Mercado's office. Please call if you have any questions concerning your bandage/splint. ACTIVITY: The first 2 weeks after surgery is the most important time for healing. Please take this time to rest and give yourself the best chance to have a good outcome. Doing too much can affect your healing.If you are not sure how active you can be please call Dr Mercado. You should get up and move around [...] not change within [address] Mercado's office. Keep your foot/ankle elevated for comfort. [...] recreational drugs while taking the narcotic medication.[facility] restricts the amount of pain pills that [...] when needed. Unless otherwise instructed by Dr Mercado you can take an over the counter anti-inflammatory to help with your pain as well. This includes but is not limited to Ibuprofen, Advil, Motrin, Alleve, etc. A prescription for baby aspirin was sent to your pharmacy and Dr. Mercado wants you to take one tablet once a day. If you have any issues with the medication call Dr. Mercado. WEIGHTBEARING INSTRUCTIONS Dr Mercado wants you to be nonweight bearing on [...] splint/bandage gets water in it, call Dr. Mercado's office ([phone]) immediately and you will beinstructed which office can see your the quickest to change your splint/bandage. documented in this encounter[facility] Work Phone: 1(423) 839-449910-28-2021 Hospital Discharge instructions* Instructions* Elin Salter RN [...] your surgeon, anesthesiologist, Etc. documented in this encounterSMA Work Phone: Evaluation + Plan note Future Appointments Appointment Date:10/23/2023 08:40:00 AM Scheduled Provider:OJ MADDOX APRN, CNP Location:[facility] Appointment Type:PC OV Follow Up [...] Chest 2 Views (PA & Lateral) 08/14/22 [facility] Evaluation note* Diagnosis Acute left ankle pain documented in this encounter [facility] Work Phone: Evaluation note* Diagnosis Tear of peroneal tendon, left, subsequent encounter documented in this encounter [facility] Work Phone: Evaluation note* Diagnosis Complication associated with peripherally inserted central catheter (PICC), initial encounter- Primary documented in this encounter [facility] Work Phone: Evaluation note* Diagnosis Dehiscence of closure of skin, sequela- Primary Infected wound Posttraumatic wound infection not elsewhere classified documented in this encounter [facility] Work Phone: Evaluation note* Diagnosis S/P split thickness skin graft- Primary documented in this encounter [facility] Work Phone: Evaluation note* Diagnosis Onset Date Resolution Status Asthma exacerbation resolved [facility] Work Phone: Evaluation note* Diagnosis Onset Date Resolution Status Bilateral pulmonary embolism acute Cellulitis of left lower extremity acute NAIR (dyspnea on exertion) ac kashia Hypoxia acute Tachypnea acute Hypertension [facility] Work Phone: Evaluation note* Diagnosis Onset Date Resolution Status Bilateral pulmonary embolism acute Cellulitis of left lower extremity acute NAIR (dyspnea on exertion) ac kashia Hypoxia acute Sepsis acute Tachypnea acute Hypertension [facility] Work Phone: Evaluation note* Diagnosis Onset Date Resolution Status Bilateral pulmonary embolism acute Cellulitis of left lower extremity acute Hypertension chronic Hypoxia resolved Sepsis resolved Asthma acute Bilateral pulmonary embolism acute Cellulitis of left lower extremity acute Current use of mcfp anticoagulation acute Septicemia acute Chronic wound of extremity c hronic [facility] Work Phone: Evaluation note* Diagnosis Onset Date Resolution Status Bilateral pulmonary embolism acute Cellulitis of left lower extremity acute Hypertension chronic Hypoxia resolved Sepsis resolved Asthma acute Bilateral pulmonary embolism acute Cellulitis of left lower extremity acute Septicemia resolved [facility] Work Phone: Evaluation note* Diagnosis Primary osteoarthritis, left shoulder- Primary Acute bursitis of left shoulder documented in this encounter [facility] [place] [facility]* Diagnosis Complication of urinary electronic stimulator device, unspecified complication, initial encounter ([facility])- Primary documented in this encounter [facility] [place] [facility]* Diagnosis Primary osteoarthritis, left shoulder- Primary Unspecified complication of genitourinary prosthetic device, implant and graft, initial encounter ([facility]) documented in this encounter [facility] [place] [facility]* Diagnosis 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, initial encounter (HCC)- Primary Unspecified complication of genitourinary prosthetic device, implant and graft, initial encounter ([facility]) [facility]* Diagnosis Primary osteoarthritis, left shoulder- Primary Unspecified complication of genitourinary prosthetic device, implant and graft, initial encounter (HCC) documented in this encounter [facility]* Diagnosis Osteoarthritis of AC (acromioclavicular) joint- Primary Chronic pain of both shoulders Unspecified complication of genitourinary prosthetic device, implant and graft, initial encounter (HCC) documented in this encounter [facility] note* Diagnosis 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, subsequent encounter (HCC)- Primary Unspecified complication of genitourinary prosthetic device, implant and graft, initial encounter (HCC) documented in this encounter [facility] note* Diagnosis Pain from implanted hardware, initial encounter- Primary documented in this encounter [facility] note* Diagnosis 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, initial encounter (HCC)- Primary 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, initial encounter (HCC) documented in this encounter [facility] note* Diagnosis 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, initial encounter ([facility])- Primary documented in this encounter [facility] note* Diagnosis 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, initial encounter ([facility])- Primary documented in this encounter [facility] note* Diagnosis 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, subsequent encounter ([facility])- Primary documented in this encounter [facility] note* Diagnosis 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, subsequent encounter (HCC)- Primary 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, initial encounter ([facility]) 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, initial encounter ([facility]) documented in this encounter [facility] note* Diagnosis 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, subsequent encounter ([facility])- Primary documented in this encounter [facility] note* Diagnosis 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, initial encounter ([facility])- Primary documented in this encounter [facility] note* Diagnosis 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, initial encounter (HCC)- Primary 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, initial encounter (HCC) 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, initial encounter ([facility]) Lack of intravenous access Postoperative pain Other acute postoperative pain 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, subsequent encounter (HCC) Chronic obstructive lung disease (HCC) Chronic airway obstruction, not elsewhere classified HLD (hyperlipidemia) Other and unspecified hyperlipidemia HTN (hypertension) Unspecified essential hypertension Obstructive sleep apnea syndrome Obstructive sleep apnea (adult) (pediatric) Gastroesophageal reflux disease Esophageal reflux [facility] Diagnosis 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, subsequent encounter (HCC)- Primary [facility] Diagnosis Necrotizing soft tissue infection- Primary long term care pharmacist (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 antibiotics [facility] [place] [facility]* Diagnosis Onset Date Resolution Status Asthma exacerbation acute [facility] Work Phone: Evaluation note* Diagnosis 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, subsequent encounter (HCC)- [facility] Diagnosis Chronic pain in right shoulder- Primary Pain in joint, shoulder region [facility] [place] [facility] Diagnosis Osteoarthritis of bilateral glenohumeral joints- Primary Left shoulder pain Pain in joint, shoulder region [facility] Diagnosis Left shoulder pain Pain in joint, shoulder region Arthritis of left glenohumeral joint [facility] Diagnosis Primary osteoarthritis, left shoulder [facility] Diagnosis Primary osteoarthritis, left shoulder [facility] Diagnosis Arthritis of right shoulder region [facility] Diagnosis Left leg cellulitis- Primary Infected wound Posttraumatic wound infection not elsewhere classified [facility] [place] [facility]* Diagnosis Stump pain (HCC)- Primary Other late amputation stump complication Stump pain (HCC) Other late amputation stump complication Below-knee amputation of left lower extremity with complication, subsequent encounter ([facility])- Primary [facility] [place] [facility]* Diagnosis Abrasion of lower leg with infection, initial encounter- Primary Abrasion of lower leg with infection, initial encounter Superficial incisional surgical site infection Cellulitis of left lower limb Stump pain (HCC) Other late amputation stump complication PE (pulmonary thromboembolism) (HCC) Chronic pulmonary embolism [facility] Surgical wound infection- Primary Other postoperative infection Lymphedema Other noninfectious lymphedema Surgical wound infection Other postoperative infection Superficial venous thrombosis of left upper extremity Stump pain (HCC) Other late amputation stump complication HLD (hyperlipidemia) Other and unspecified hyperlipidemia Superficial venous thrombosis of left upper extremity [facility] Diagnosis Cellulitis of left lower extremity- [...] reflux Difficult intubation [facility] [place] [facility]* Diagnosis 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, initial encounter (HCC)- Primary [facility] [place] [facility]* Diagnosis Fibromyalgia Unspecified myalgia and myositis Suprascapular neuropathy, unspecified laterality documented in this encounter [facility] Work Phone: Evaluation note* Diagnosis Intractable neuropathic pain of upper extremity- Primary Chronic pain of both shoulders Morbid obesity (Multi) Morbid obesity Obstructive sleep apnea Obstructive sleep apnea (adult) (pediatric) documented in this encounter [facility] Work Phone: Evaluation note* Diagnosis Fibromyalgia- Primary Unspecified myalgia and myositis Phantom pain Phantom limb (syndrome) documented in this encounter [facility] Work Phone: Evaluation note* Diagnosis Chronic pain of both shoulders Intractable neuropathic pain of upper extremity documented in this encounter [facility] Work Phone: History of Present illness Narrative* [...] much benefit. Patient was referred by Dr. Oliveros for discussion of other advanced procedures such [...] benefit so she stopped taking the patches. [place]ines had multiple steroid injections for the shoulder without much benefit. Patient has not had suprascapular nerve blocks to the area. Patient was referred by Dr. Oliveros for discussion of other advanced procedures such [...] file. [4] Not on File Cosigned by Enrique Preston MD PhD at 04/29/2025 11:15 AM EDT Associated attestation - Enrique Preston MD PhD - 04/29/2025 11:15 AM EDT I saw and evaluated the patient. I personally obtained the jose and critical portions of the historyand physical exam or was physically present for jose and critical portions performed by the resident/fellow. I reviewed the resident/fellow's documentation and discussed the patient with the resident/nikko dodge. I agree with the resident/fellow's medical decision making as documented in the note. documented in this [facility] Work Phone: Hospital course Narrative No data available for this section [facility] Discharge instructions No data available for this section [facility] Discharge instructions* Instructions* Divya Helton, SUPERVISOR HAND SILVERING - DATA MINING ANALYST - 11/13/2021 In the medical field, there [...] prescribed and follow-upas recommended. documented in this [facility] Work Phone: Hospital Discharge instructions* Attachments The following attachments cannot be sent through Care Everywhere. * Wound Incision and Drainage Discharge Instructions (Ugandan) [facility] Procedure Summary Procedure Name [...] Anesth: Injectable; Technique: Ultrasound guidance; Inserted by: MITCH Velez CRNA; Insertion Attempts: 1; Difficult Venous Access? No 05/31/23 1318 by MITCH Velez CRNA [facility]* Procedure Summary Procedure Name [...] pacu; Orientation: Right 06/05/23 1323 by Kia Randle RN [facility] No data available for this section [facility] for referral (narrative)* Consultation (Routine) - Pending Review Specialty Diagnoses / Procedures Referred By Contrichard t Referred To Contact Sports Medicine Diagnoses Left shoulder pain Procedures MO OFFICE/OUTPATIENT [facility] 60 MINUTES Bj Barroso MD [address] [address], [address] [place] [address] [place] [address] Referral ID Status Reason Start Date Expiration Date Visits Requested Visits Authorized [id number] Pending Review Specialty Services Required 10/12/2023 10/11/2024 1 1 [facility] (narrative)No reason for referral [facility] Work Phone: Reason for visit Narrative* Consultation (Routine) - Authorized Specialty Diagnoses / Procedures Referred By Li mcneal Referred To Contact Pain Medicine Diagnoses Fibromyalgia Suprascapular neuropathy, unspecified laterality Mili Oliveros [place] PhD [address] [place] [address] Phone: tel: fax: Enrique Preston MD PhD [address] [place] [address] Phone: tel: fax: Referral ID Status Reason Start Date Expiration Date Visits Requested Visits Authorized [id number] Authorized Specialty Services Required 04/14/2025 04/14/2026 1 1 [facility] Work Phone: Reason for visit Narrative* Procedure (Routine) - Authorized Specialty Diagnoses / Procedures Referred By Li mcneal Referred To Contact Pain Medicine Diagnoses Chronic pain of both shoulders Intractable neuropathic pain of upper extremity Procedures Nerve Block MO INJECTION AA&/STRD SUPRASCAPULAR NERVE Enrique Preston MD PhD [address] [place] [address] Phone: tel: fax: Enrique Preston MD PhD [address] [place] [address] Phone: tel: fax: Referral ID Status Reason Start Date Expiration Date Visits Requested Visits Authorized [id number] Authorized Perform Procedure 04/29/2025 04/29/2026 1 1 [facility] Work Phone: Summary Purpose Family History No [...] Documents on File Type Date Recorded Patient Medical Attendant Expl anation Advance Directives and Living Will Power of Engineering Officer Latest Code Status on File Code Status Date Activated Date Inactivated Comments Full Code 05/03/2019 9:41 PM Full Code 04/20/2019 6:37 PM 04/29/2019 5:49 PM Full Code 04/08/2019 6:37 AM 04/11/2019 12:08 AM Full Code 03/30/2019 2:16 AM 04/03/2019 4:34 PM Full Code 03/14/2019 9:18 PM 03/15/2019 6:18 PM Documents on File Type Date Recorded Patient Medical Attendant Expl anation ACP-Advance Directive ACP-Power of Engineering Officer Latest Code Status on File Code Status Date Activated Date Inactivated Comments Full Code 05/03/2019 9:41 PM 05/09/2019 6:39 PM Full Code 04/20/2019 6:37 PM 04/29/2019 5:49 PM Full Code 04/08/2019 6:37 AM 04/11/2019 12:08 AM Full Code 03/30/2019 2:16 AM 04/03/2019 4:34 PM Full Code 03/14/2019 9:18 PM 03/15/2019 6:18 PM Documents on File Type Date Recorded Patient Medical Attendant Expl anation ACP-Advance Directive ACP-Power of Engineering Officer Latest Code Status on File Code Status [...] Yes January 21, 2022 2:19pm Power of Engineering Officer Yes January 21 2:19pm Advance Directive Response Recorded Date/ Time Advance Directives No November 2:55pm Living Will Yes August 31 4:59pm Power of Engineering Officer Yes August 31, 2022 4:59pm Name of Medical Power of Engineering Officer Johanna daugh ter August 31, 2022 4:59pm Advance Directive Response Recorded Date/ Time Name of Medical Power of Engineering Officer Johanna daugh ter August 31, 2022 4:59pm Advance Directives No November 2:55pm Living Will Yes August 31 4:59pm Power of Engineering Officer Yes August 31, 2022 4:59pm Advance Directive Response Recorded Date/ Time Name of Medical Power of Engineering Officer Johanna daugh ter August 31, 2022 4:59pm Advance Directives No November 2:55pm Living Will No September 10, 12:31pm Power of Engineering Officer No September 10, 2022 12:31pm Advance Directive Response Recorded Date/ Time Name of Medical Power of Engineering Officer Johanna daugh ter August 31, 2022 4:59pm Advance Directives No November 2:55pm Living Will No October 15 11:22pm Power of Engineering Officer No October 15, 2022 11:22pm Advance Directive Response Recorded Date/ Time Name of Medical Power of Engineering Officer Johanna daugh ter August 31, 2022 4:59pm Advance Directives No November 2:55pm Living Will No October 16 2:46am Power of Engineering Officer No October 16, 2022 2:46am Advance Directive Response Recorded Date/ Time Name of Medical Power of Engineering Officer Johanna daugh ter August 31, 2022 4:59pm Advance Directives No November 2:55pm Living Will No November 06 6:34pm Power of Engineering Officer No November 06, 2022 6:34pm Latest Code [...] Will No July 20 4:41pm Power of Engineering Officer No July 20, 2023 4:41pm Advance Directive Response Recorded Date/ Time Advance Directives No November 3:55pm Living Will No July 21 12:20am Power of Engineering Officer No July 21, 2023 12:20am Latest Code [...] Do you have a Healthcare Power of Engineering Officer? No January 14, 2025 8:25am Advance Directives No November 1:13pm Advance Directive Response Recorded Date/ Time Living Will No January 14, 2025 12:59pm Do you have a Healthcare Power of Engineering Officer? No January 14, 2025 12:59pm Advance Directives No November 1:13pm Advance Directive Response Recorded Date/ Time Living Will No January 14, 2025 12:59pm Do you have a Healthcare Power of Engineering Officer? No January 14, 2025 12:59pm Do you have a Healthcare Power of Engineering Officer? No May 16, 2025 5:42am Advance Directives No November 1:13pm Reason for Referral Status Reason Specialty Diagnoses / Procedures Referred By Contact Referred To Contact Pending Review Patient Preference Home Health Services Diagnoses FAY (obstructive sleep apnea) Cellulitis of right foot Pain from implanted hardware, initial encounter Arthritis of right subtalar joint Rigo Shelton, [address] [facility] [place] [address] Status Reason Specialty Diagnoses / Procedures Referred By Contact Referred To Contact Pending Review Radiology Diagnoses Pseudarthrosis after fusion or arthrodesis Arthrodesis status Procedures NM Bone Marrow Limited Rigo Shelton DO [address] [place] [address] Status Reason Specialty Diagnoses / Procedures Referred By Contact Referred To Contact Authorized Radiology Diagnoses Pseudarthrosis after fusion or arthrodesis Arthrodesis status Procedures NM White Blood Cell Prep Rigo Shelton DO [address] [place] [address] Status Reason Specialty Diagnoses / Procedures Referred By Contact Referred To Contact Pending Review Radiology Diagnoses Amputation of right lower extremity (HCC) Procedures CT Lower Extremity Right WO Contrast Rusty Mercado MD [address] [facility] [address] [place] [address] Specialty Diagnoses / Procedures Referred By Li mcneal Referred To Contact Art Shearer MD [address] [place] [address] Referral ID Status Reason Start Date Expiration Date V isits Requested Visits Authorized [id number] Pending Review 1 1 Discharge Instructions * Discharge Instr - AVS First Page* Dorothy Bonner MD - 11/05/2018 9:53 AM EST Weekly CBC with diff, creatinine, ESR, CRP to Dr. Bonner at [phone]. * Discharge Instr - Care Coordination* Terrell Junior LSW - 11/05/2018 1:04 PM EST Home Health Care Agency: [facility] P: [phone] F: [phone] Home Infusion Pharmacy: [facility] P: [phone] F: [phone] * Additional Instructions* Holly Suh, ADEBAYO - 11/05/2018 You are to be: Non [...] case the physician and or the clinical social service assistant will instruct you otherwise. What to watch [...] after office hours, you may call the manager acquisition physician with your questions, however they will [...] too long. Patients will typically be given [place] or Vicodin as a step down after the Oxycodone is done. The strength of these medications will depend on the pain level of the pain at the time and what type of surgery that they have had. A new law in [place], that went into effect on May 31, [...] sent through Care Everywhere. * Arm Pain (Ugandan) in this encounter* Discharge Instr - Activity* [...] Alaniz DO PCP: Oj Maddox APRN - DATA MINING ANALYST Discharging Nurse: [facility] Unit/Room#: 5102/013789 Discharging Unit Emergency Contact: Extended Emergency Contact Information Primary Emergency Contact: RaghavendraLuz [facility] Relation: Child Secondary Emergency Contact: Shen Manzanares Relation: None Past Surgical History: Past Surgical History: Procedure Laterality Date ABDOMINOPLASTY BREAST SURGERY 2006 and abdomin removal for excess COLONOSCOPY ENDOSCOPY, COLON, DIAGNOSTIC FOOT SURGERY Right 2019 IN [place] FOOT SURGERY Right 02/11/2019 FOOT SURGERY Right [...] Right 05/06/2019 Right Below Knee Amputation (CPT 24939), #2 Excisional debridement right iliac crest (wound [...] Dependent Dressing Assisted Toileting Assisted Feeding Independent Leave Specialist Independent Med Delivery none Wound Care Documentation [...] Readmission: 26 Discharging to Facility/ Agency Name: [facility] Address:[address] [place] [address] Phone1 :[phone] Fax: Dialysis Facility (if applicable) Name: Address: Dialysis Schedule: Phone: Fax: Preparation Plant Repairer/Truss Maker signature: ICIAN SECTION Prognosis: Fair Condition at Discharge: Stable Rehab Potential (if transferring to Rehab): Fair Recommended Labs or Other Treatments After Discharge: bmp on 05/10/19 Physician Certification: I certify the above information and transfer of Siobhan Haas is necessary for the continuing treatment of the diagnosis listed and that she requires Intermediate Facility for less 30 days. Update Admission [...] Garnica RN - 07/01/2020 Please bring your [facility] Information folder on the day of [...] your doctor if you can take an [id number] medicine. How can you take care of [...] Where can you learn more? Go to [email or web address] and sign in to your [employer]back account. Enter X507 in the Search Health Information box to learn more about Learning About What to Expect at Home After Surgery. If you do not have an account, please click on the Sign Up Now link. Current as of: February 25, 2020 Content Version: 12.6 [employer]. Care instructions adapted under license by [employer]. If you have questions about a medical condition or this instruction, always ask your healthcare professional. [employer] disclaims any warranty or liability for your [...] Instructions: Immobilization: none Follow up with Dr. Mercado in 2 weeks. Call to schedule your appointment as soon as possible. documented in this encounter* Discharge Instr - Activity* uRsty Mercado MD - 08/17/2020 1:52 PM EST Weight-bearing and post-operative activity Dr Mercado wants you to be nonweight bearing on the Right lower extremity. You will continue this weight bearing restriction for the next 6 weeks If you have any problems maintaining this weight bearing status please call the office so that appropriate instructions can be given. Dr. Mercado wants you to get up once per [...] moving around during the day, let Dr Mercado know. * Discharge Instr - Diet* Rusty Mercado MD - 08/17/2020 1:52 PM EST ? [...] at most local grocery stores, pharmacies, and [facility]. ? If you have any questions about your diet or nutrition, call the hospital and ask for the dietitian. * Discharge Instr - Lab* Micki Garcia RN - 08/18/2020 2:18 PM EST Your physician has ordered skilled home care services for you. Your home care will be provided by: [facility] [phone] * Additional Instructions* Rusty Mercado MD - 08/17/2020 If you have any questions please call Dr Mercado's office ([phone]), all calls after 4:30 pm or anytime on Sunday or Sunday go through the answering service. The nurse at the answering service will triage your call to determine if the at night on-call physician needs to be called (this may notbe Dr Mercado but one of his partners if Dr Mercado is not manager acquisition). Any calls regarding medication refills will be [...] or starts to feel uncomfortable call Dr Mercado's office immediately ([phone]). The VAC dressing will be changed by VNS and if there are any issues with the VAC dressing call yournurse. If you are unable to reach your nurse please call Dr Mercado. ACTIVITY: The first 2 weeks after surgery is the most important time for healing. Please take this time to rest and give yourself the best chance to have a good outcome. Doing too much can affect your healing.If you are not sure how active you can be please call Dr Mercado. You should get up and move around [...] not change within [address] Mercado's office. Keep your Right leg elevated for [...] recreational drugs while taking the narcotic medication.The [facility] restricts the amount of pain pills that [...] when needed. Unless otherwise instructed by Dr Mercado you can take an over the counter anti-inflammatory to help with your pain as well. This includes but is not limited to Ibuprofen, Advil, Motrin, Alleve, etc. WEIGHTBEARING INSTRUCTIONS Dr Mercado wants you to be nonweight bearing on [...] splint/bandage gets water in it, call Dr. Mercado's office ([phone]) immediately and you will beinstructed which office can see your the quickest to change your splint/bandage. documented in this encounter* Discharge Instr - Activity* Rusty Mercado MD - 07/27/2020 8:28 AM EDT Weight-bearing and post-operative activity Dr Mercado wants you to be nonweight bearing on the Right lower extremity. You will continue this weight bearing restriction until your 2 week followup and then your ability to put weight on the operative extremity will be updated. If you have any problems maintaining this weight bearing status please call the office so that appropriate instructions can be given. Dr. Mercado wants you to get up once per [...] moving around during the day, let Dr Mercado know. * Discharge Instr - Diet* Rusty Mercado MD - 07/27/2020 8:29 AM EDT ? [...] at most local grocery stores, pharmacies, and [employer]stores. ? If you have any questions about your diet or nutrition, call the hospital and ask for the dietitian. * Additional Instructions* Rusty Mercado MD - 07/27/2020 If you have any questions please call Dr Mercado's office ([phone]), all calls after 4:30 pm or anytime on Sunday or Sunday go through the answering service. The nurse at the answering service will triage your call to determine if the at night on-call physician needs to be called (this may notbe Dr Mercado but one of his partners if Dr Mercado is not manager acquisition). Any calls regarding medication refills will be [...] or starts to feel uncomfortable call Dr Mercado's office immediately ([phone]). Leave the dressing in place, you do not need to change it unless you are instructed to do so by . If there are problems with the dressing (it feels to tight, too loose, it gets wet) call 's office. If you see any blood on the bandage reinforce it on the surface with gauze and an minal bandage and call Dr Mercado's office. Please call if you have any questions concerning your bandage/splint. ACTIVITY: The first 2 weeks after surgery is the most important time for healing. Please take this time to rest and give yourself the best chance to have a good outcome. Doing too much can affect your healing.If you are not sure how active you can be please call Dr Mercado. You should get up and move around [...] not change within [address] Mercado's office. Keep your foot/ankle elevated for comfort. [...] recreational drugs while taking the narcotic medication.The [facility] restricts the amount of pain pills that [...] when needed. Unless otherwise instructed by Dr Mercado you can take an over the counter anti-inflammatory to help with your pain as well. This includes but is not limited to Ibuprofen, Advil, Motrin, Alleve, etc. A prescription for baby aspirin was sent to your pharmacy and Dr. Mercado wants you to take one tablet once a day. If you have any issues with the medication call Dr. Mercado. WEIGHTBEARING INSTRUCTIONS Dr Mercado wants you to be nonweight bearing on [...] splint/bandage gets water in it, call Dr. Mercado's office ([phone]) immediately and you will beinstructed which office can see your the quickest to change your splint/bandage. documented in this encounter History of Present Illness * Gagan Deluca MD - 11/05/2018 5:09 PM EST [facility] Deluca [facility] PROGRESS NOTE Patient Name: Siobhan [...] family PRN. Rev. Elyssa Palafox MDiv Staff Veterinary Radiologist, [facility] Sunday and Sunday, Sunday, , Sunday Pastoral Care Department To request a information technology teacher, please put in a spiritual consult for a information technology teacher or Vocera Pastoral Care * Holly Suh Jing, DATA MINING ANALYST - 11/05/2018 11:41 AM EST DAILY PROGRESS NOTE Patient Name: Siobhan Haas MR #: [id number] Assessment/Plan: Cellulitis of right foot Assessment & [...] 11/04/2018 3:57 PM EST [facility] Deluca [facility]GRESS NOTE Patient Name: Siobhan [...] 11/03/2018 11:58 AM EST Layton Montaño MD [facility] Hospitalists DAILY PROGRESS NOTE Patient Name: Siobhan Haas PCP: Rigo Shelton DO Perpetual Assessment: Siobhan Haas is a 58 y.o. female who presented from home on 11/01/2018 with 1 day complaint of right foot redness and swelling surrounding her incision site. [facility] was consulted for medical management. Assessment [...] Spent/CCM Time: * Rigo Shelton, DO - 11/03/2018 11:10 AM EST Daily Progress [...] 11/02/2018 11:05 AM EST Layton Montaño MD [facility] Hospitalists DAILY PROGRESS NOTE Patient Name: Siobhan Haas PCP: Rigo Shelton DO Perpetual Assessment: Siobhan Haas is a 58 y.o. female who presented from home on 11/01/2018 with 1 day complaint of right foot redness and swelling surrounding her incision site. [facility] was consulted for medical management. Assessment [...] Family Time Spent/CCM Time: * Rigo Shelton, - 11/02/2018 7:39 AM EST Daily Progress [...] shaking and crying in bed. Paged IMS manager acquisition pager again. * Ned Abreu RN - 05/08/2019 9:17 PM EDT Paged IMS manager acquisition pager at this time regarding patient pain. [...] and GI prophylaxis DC planning[facility], after which she can be sent to rehab NIRANJAN PACHECO MD * Vinh Ventura, RN - 05/08/2019 4:46 PM EDT Ok to change hip dressing per Dr. Maximino Pimentel. Also paged Dr. Pacheco as pt insisted on being discontinued from her maintenance fluids. Awaiting response. Pt is on regular diet with good intake and good urinary output * Elma Crenshaw, MS, RD, LD - 05/08/2019 3:37 PM [...] High Nutrient Needs: Estimated Daily Total Kcal: 8163-7721 (25-30) Estimated Daily Protein (g): 74-86 gms [...] per EPIC review: (02/03/19) 325# standing scale [place] Body Wt: 135 lb (61.2 kg), BMI Classification: BMI > or equal to 40.0 Obese Class III Nutrition Interventions: Continue current diet, Start ONS Continued Inpatient Monitoring Nutrition Evaluation: Evaluation: Goals set Goals: Pt to consume >75% of meals and ONS Monitoring: Meal Intake, Supplement Intake, Diet Tolerance, Skin Integrity, Wound Healing, I&O,Weight, Pertinent Labs Contact Number: [phone] * Maximino Aceves JD, MD - 05/08/2019 2:57 PM EDT Ortho to bedside to check on pt. Pt doing well. RRD in place on RLE, put on by Remigio today 05/08/19. F/u OP with Dr. Mercado in 2wks. Dispo, pain control, and medical management per primary. Ortho signing off. * Keanu Raygoza - 05/08/2019 10:45 AM EDT Physical Therapy Facility/Department: [facility] MED SURG Daily Treatment Note NAME: Siobhan [...] Mobility Inpatient CMS G-Code Modifier : CK (05/08/191044) Goals Short term goals Time Frame for [...] Sotelo DO - 05/08/2019 9:44 AM EDT [facility] - Infectious Diseases Attending [...] 6.9 (L) 05/08/2019 0304 MONOPCT 8.2 05/08/2019 030 LABEOS 0.0 (L) 05/08/2019 030 BASOPCT 0.4 05/08/2019 0304 NEUTROABS 9.2 (H) 05/08/2019 0304 Micro: Blood cultures: No results found for: BC Aerobic Culture 05/06/2019 4:24 PM [facility] No growth to date. Gram Stain Result 05/06/2019 4:24 PM [facility] Many polymorphonuclear cells/lpf. No organisms [...] Will sign-off please call with questions Pager: [phone] . * Charlie Estevez MD - 05/08/2019 6:12 AM EDT [place] [address] MED SUR[address] [place] [address] Dept: [phone] Loc: [phone] Orthopedic Progress Note Name: Siobhan Haas Date:05/08/2019 Attending:Niranjan Pacheco MD Subjective Patient doing well, pain controlled. States she is happy with how the incision looks. No events o/n. Objective Vitals: Vitals: 05/07/19 2330 05/07/19 2345 05/08/19 0033 05/08/19 0539 BP: 113/65 121/71 (!) 115/58 120/69 Pulse: 80 78 82 74 Resp: 14 18 18 Temp: 99.1 F (37.3 C) [...] 26.4* PLT 378 390 346 Recent Labs 05/06/19 0243 05/07/19 0124 05/08/19 0304 NA 137 141 138 K 3.5 [...] -PT/OT -Pain control and medical mgmt per -/u Dr Mercado in 2 weeks Charlie Estevez M.D. Orthopaedic Surgery PGY-1 [phone] * Dania Dubose RN - 05/07/2019 11:52 PM EDT Waiting on transport. Pt states pain is tolerable. Pt voided approximately 300cc. * Shell Weeks RN - 05/07/2019 10:55 PM EDT RN OUTPATIENT SURGERY and anesthesia still at bedside. Second time [...] femoral block by Dr. De La Cruz. RN OUTPATIENT SURGERY also at bedside. Timeout performed. Pt tearful. One time dose of Ativan administered per Dr. De La Cruz * Tariq Sotelo DO - 05/07/2019 2:41 PM EDT [facility] - Infectious Diseases Attending [...] 0236 Component Value Date/Time WBC 11.7 (H) 05/07/2019123 HGB 10.0 (L) 05/07/2019123 HCT 30.7 (L) 05/07/2019123 PLT 390 05/07/2019123 GRANULOCYTES 91.2 (H) 05/07/2019123 LYMPHOPCT 5.6 (L) 05/07/2019123 MONOPCT 2.9 05/07/2019123 LABEOS 0.1 (L) 05/07/2019123 BASOPCT 0.2 05/07/2019 012 NEUTROABS 10.6 (H) 05/07/2019 012 Micro: Blood cultures: No results found for: BC Culture, Aerobic Bacteria with Gram Stai [[id number]] Collected: 05/06/19 1624 Order Status: No result [...] a short course 2. Wound care Pager: [phone] . * Julia Cole PT - 05/07/2019 11:53 AM EDT Physical Therapy Facility/Department: [facility] MED SURG Re-evaluation NAME: Siobhan Haas : [...] Other Activities: Re-evaluation performed G-Code OutComes Score [facility] Score AM-[facility] Inpatient Mobility Raw Score : 13 (05/07/19 1140) AM-[facility] Inpatient T-Scale Score : 36.74 (05/07/19 1140) Mobility Inpatient CMS 0-100% Score: 64.91 (05/07/19 1140) Mobility Inpatient [facility] G-Code Modifier : CL (05/07/19 114) Goals Short term goals Time Frame for [...] Plan of Care supervision is transferred to [facility] Department Physical Therapist. Julia Cole [...] Ambulation Assistance: Independent Transfer Assistance: Independent Active Surgeon Partner: Yes Mode of Transportation: Car Occupation: On disability Additional Comments: Pt went to [facility] rehab after 04/24 surgery. Pt had been using knee scooter for mobility. At rehab she primariliy stand pivots to w/c or BSC. Objective Vision: Within Functional Limits Hearing: Within functional limits Orientation Overall Orientation Status: Within Functional Limits Observation/Palpation Posture: Fair Observation: minal bandage on R residual limb Balance Sitting [...] / ADL, Home Management Training OutComes Score [facility] Daily Activity Inpatient How much help for [...] How much help for eating meals?: None -[facility] Inpatient Daily Activity Raw Score: 20 [facility] Inpatient ADL T-Scale Score : 42.03 ADL Inpatient CMS 0-100% Score: 38.32 ADL Inpatient [facility] G-Code Modifier : CJ Goals Short term [...] Plan of Care supervision is transferred to [facility] Occupational Therapist. Jasmine Cabrera/OT * Niranjan Pacheco MD - 05/07/2019 9:16 AM EDT Department of Internal Medicine General Internal Medicine Attending Progress Note SUBJECTIVE: Patient seen and examined. Had surgery done, appears to be relieved Medications Current Facility-Administered Medications: morphine sulfate (PF) injection 2 mg, 2 mg, Intravenous,Q6H PRN daptomycin (CUBICIN) 245 mg in sodium chloride 0.9 % 50 mL IVPB, 4 mg/kg ([place]uffield), Intravenous, Q24H dextrose 5 % and 0.9 [...] Lower abdomen incision is red and swollen,. [place] intact. No pus. MUSCULOSKELETAL: No leg edema [...] Monahan MD - 05/07/2019 5:24 AM EDT [facility] H5 MED SURG [address] [id number] Dept: [phone] Loc: [phone] Adult Orthopaedic Service Patient Name: Siobhan Haas [...] gauze 1X8 daptomycin (CUBICIN) IVPB 4 mg/kg ([place]) Intravenous Q24H docusate sodium 100 mg Oral [...] Intake/Output Summary (Last 24 hours) at 05/07/2019 0542 Last data filed at 05/07/2019 0445 Gross per 24 hour Intake 3050 ml [...] RLE Abx per ID Dressing changes prn Yanke c/s for RRD placement 05/08 Ice/Elevate PT/OT Pain control and medical mgmt per 1 F/u Dr Mercado in 2 weeks Keanu Monahan MD Orthopaedic [...] 0.9 % 50 mL IVPB, 4 mg/kg ([place]), Intravenous, Q24H dextrose 5 % and 0.9 [...] GI prophylaxis NIRANJAN PACHECO MD * Tariq Sotelo DO - 05/06/2019 11:42 AM EDT [facility] - Infectious Diseases Attending [...] 3. Will follow abdominal incision celluitis Pager: [phone] . * Keanu Raygoza - 05/06/2019 7:58 AM EDT Physical Therapy Facility/Department: [facility] MED SURG Daily Treatment Note NAME: Siobhan Haas : 1960 Date of Service: 05/06/2019 Attempted to see pt today for PT. Pt is scheduled for BKA surgery today and treatment is not appropriate. Will be scheduled for re-eval post op. Keanu Raygoza, SPTA Beatriz Weaver PEARL DIVER * Luz Marina Farris RN - 05/06/2019 6:54 AM EDT Patient complaining of 10/10 pain, unrelieved by morphine. Patient not due for PO pain medicine at this time. Paged IMS manager acquisition. No new orders at this time. * Hay Regalado MD - 05/06/2019 6:13 AM EDT [place] [address] MED SUR[address] [place] [address] Dept: [phone] Loc: [phone] Adult Orthopaedic Service Patient Name: Siobhan Haas Date of : 1960 Date: 05/06/19 Subjective: Pain controlled, resting comfortably in bed. Foot redness has improved since admission. Redness over her ICBG site has not changed. Denies fevers/chills. Patient going to OR today for R BKA. She reportedly discussed with Dr. Mercado last night. Medications: potassium chloride 40 mEq Oral BID daptomycin (CUBICIN) IVPB 4 mg/kg ([place]) Intravenous Q24H docusate sodium 100 mg Oral [...] Intake/Output Summary (Last 24 hours) at 05/06/2019 06 Last data filed at 05/06/2019 0342 Gross [...] Orthopaedic Surgery 05/06/19 6:18 AM * Anette Watts, MS, RD, LD - 05/05/2019 3:56 PM EDT Nutrition Assessment Type and Reason for Visit: Initial, Positive Nutrition Screen(wound) Nutrition Recommendations: 1. Continue with General diet as tolerated. 2. Per MNT provide Wound Healing supplement (Bandar) with breakfast and lunch. [id number] gms amino acids/ 2.5 gms protein each [...] High Nutrient Needs: Estimated Daily Total Kcal: 4586-2232 (25-30) Estimated Daily Protein (g): 74-86 gms [...] (145.2 kg)(stated) % Weight Change: , per [facility] review: (02/03/19) 325# standing scale [place] Body Wt: 135 lb (61.2 kg), BMI [...] Constipation, Monitor Bowel Function Contact Number: pager [phone] * Tariq Sotelo, DO - 05/05/2019 3:32 PM EDT [facility] - Infectious Diseases Attending Progress Note Subjective: [...] Labs: Component Value Date/Time NA 137 05/05/2019 0100 K 3.3 (L) 05/05/2019 010 CL 98 05/05/2019 0100 CO2 32 (H) 05/05/2019 0100 BUN 11 05/05/2019 0100 CREATININE 0.67 05/05/2019 010 GLUCOSE 115 (H) 05/05/2019 010 CALCIUM 8.9 05/05/2019 010 PROT 7.1 02/14/2019 0320 LABALBU 3.8 02/14/2019 0320 BILITOT 0.5 02/14/2019 0320 ALKPHOS 114 02/14/2019 0320 AST 50 (H) 02/14/2019 0320 ALT 22 02/14/2019 0320 PROCAL <0.10 05/04/2019 1102 PROCAL <0.10 04/09/2019 0236 Component Value Date/Time WBC 5.7 05/05/2019 0100 HGB 10.2 (L) 05/05/2019 0100 HCT 30.7 (L) 05/05/2019 0100 PLT 329 05/05/2019 0100 GRANULOCYTES 53.9 05/05/2019 0100 LYMPHOPCT 25.1 05/05/2019 0100 MONOPCT 15.7 (H) 05/05/2019 010 LABEOS 4.3 05/05/2019 010 BASOPCT 1.0 05/05/2019 010 NEUTROABS 3.1 05/05/2019 0100 Micro: Blood cultures: No results found for: Reviewed all relevant labs and microbiology data. [...] for patient. Time spent 35 minutes. Pager: [phone] . * JessemichelleFloriana - 05/05/2019 2:36 PM EDT Occupational Therapy [...] Prognosis: Fair Decision Making: Low Complexity Exam: [facility] OT Education: OT Role;Plan of Care [...] Ambulation Assistance: Independent Transfer Assistance: Independent Active Surgeon Partner: Yes Mode of Transportation: Car Occupation: On disability Additional Comments: Pt went to [facility] rehab after 04/24 surgery. [...] / ADL, Home Management Training OutComes Score [facility] Daily Activity Inpatient How much help for [...] How much help for eating meals?: None [facility] Inpatient Daily Activity Raw Score: 20 [facility] Inpatient ADL T-Scale Score : 42.03 ADL Inpatient CMS 0-100% Score: 38.32 ADL Inpatient [facility] G-Code Modifier : CJ Goals Short term [...] Plan of Care supervision is transferred to [facility] Occupational Therapist. Vane Powell, S/OT * Jace Story MD - 05/05/2019 1:36 [...] well, pending further di scussion with Dr. Mercado. Cases have been added. Consented for both procedures. NPO at [place]. T+S ordered. Jace Story MD PGY-3 Orthopaedic [...] GI prophylaxis NIRANJAN PACHECO MD * Keanu Raygoza - 05/05/2019 9:08 AM EDT Physical Therapy Facility/Department: [facility] MED SURG Daily Treatment Note NAME: Siobhan [...] as she [place] this [place] [facility] Pain Screening Patient Currently in Pain: Yes(R [...] Story MD - 05/05/2019 6:06 AM EDT [place] [address] MED SUR[address] [place] [address] Dept: [phone] Loc: [phone] Adult Orthopaedic Service Patient Name: Siobhan Haas [...] minimal improvement. Still indurated. Will d/w Dr. Mercado and update plan accordingly Chance she will require OR for I&D of the ICBG site Consented for above Add P discussion with Dr. Mercado NPO, will change as plans finalized NWB RLE Elevate Abx per ID Pain and medical management per primary * Siobhan Lay, PT - 05/04/2019 10:23 AM EDT Physical Therapy Facility/Department: [facility] MED SURG Initial Assessment NAME: Siobhan Haas : 1960 Date of Service: 05/04/2019 [...] Pt still awaiting ortho rec from Dr. Mercado. Pt lives alone and would benefit from ongoing inpt therapy at rehab level at [facility]. Prognosis: Fair Decision Making: Low Complexity PT [...] foot for 2 years. Pt went to [place] rehab after 04/24 surgery. Pt had been using knee scooter before ex. fix surgery and got around well. Pt states she can no longer use knee scooter due to pain it causes. At rehab she primariliy stand pivots to w/c or BSC. Ptreports she's waiting to speak to Dr. Mercado, but pt has decided she is done [...] 1005) AM-PAC Inpatient T-Scale Score : 42.13 (05/04/191004) Mobility Inpatient CMS 0-100% Score: 50.57 (05/04/195) Mobility Inpatient CMS G-Code Modifier : CK (05/04/191004) Goals Short term goals Time Frame for [...] Plan of Care supervision is transferred to [facility] Department Physical Therapist. Siobhan Lay [...] Hx of right BKA (HCC),Hypertension, Morbidly obese ([facility]), FAY treated with BiPAP, Osteoarthritis, Osteomyelitis of [...] in place: No AM-PAC Score AM-PAC Inpatient Mobility Raw Score : 24 (08/18/201416) AM-PAC Inpatient T-Scale Score : 61.14 (08/18/201416) Mobility Inpatient CMS 0-100% Score: 0 (08/18/201416) Mobility Inpatient CMS G-Code Modifier : CH (08/18/201416) Therapy Time Individual Concurrent Group Co-treatment Time In 1342 Time Out 1400 Minutes 18 SPT wore N95 mask, goggles, and gloves throughout entire session with patient. Jayda Hernández Associated attestation - Ludwin Zarate, PT - 08/18/2020 3:09 PM EST I was present during session. I spoke with [facility] re: w/c dimensions. * Gallo Trent MD - 08/18/2020 6:20 AM EST [facility] H[address] TE[address]METRY [address] [place], [place] [id number] Dept: [phone] Loc: [phone] Orthopedic Progress Note Name: Siobhan Haas Date:08/18/2020 Attending:Rusty Mercado MD Subjective Resting comfortably. No concerns. Wants to go home today Objective Vitals: Vitals: 08/17/20 1645 08/17/20 1654 08/17/20201608/18/20 0352 BP: 124/77 116/67 Pulse: 79 80 [...] recs and wound vac F/u with Dr. Mercado upon discharge. Call office to schedule an appointment Gallo Trent MD PGY-2 Orthopaedic Surgery [phone] 08/18/2020 6:23 AM Please page on-call resident via [employer] or [phone] with any questions or concerns during hours of 6am-6pm. * Sona Mcclain RN - 08/17/2020 3:59 PM EST Pt pain tolerable, free from nausea. Family called and updated, pt transported to with belongings, pt states all belongings are present. Report called to CINDY Cheema * Yasmine Jones RN - 08/17/2020 [...] 05/09/2019 2:17 PM EDT Discharge Summary Siobhan Haas : 1960 ADMIT DATE: 05/03/2019 DISCHARGE DATE: 05/09/2019 PRIMARY CARE PHYSICIAN: Oj Maddox, SUPERVISOR HAND SILVERING - DATA MINING ANALYST VISIT STATUS: Admission CODE STATUS: Full Code [...] DISCHARGE MEDICATIONS: Siobhan Haas Home Medication Instructions TING:[id number] Printed on:05/09/19 5674 Medication Information amoxicillin-clavulanate (AUGMENTIN) 875-125 MG per [...] Complexity: follow up within 7-14 calendar days (48621) [] Severe Complexity: follow up within 7 calendar days (92657) FOLLOW UP TESTING, PENDING RESULTS OR REFERRALS AT TRANSITIONAL CARE VISIT: [] Yes [] No PENDING STUDIES: No DISPOSITION: Acute Rehab FACILITY/HOME CARE AGENCY NAME: Follow up with Oj Maddox APRN - DATA MINING ANALYST [address] [facility] [id number] Rusty Mercado MD [address] [facility] [address] [place] [address] In 2 weeks For wound re-check Oj Maddox APRN - DATA MINING ANALYST [address] [facility] [id number] In 1 week on INSTRUCTIONS TO MA/SW: [...] left lower extremity 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 Septicemia Chronic wound of extremity Chief [...] of left lower extremity Current use of mcfp anticoagulation Septicemia Chronic wound of extremity Chief [...] respiratory failure Apri l 2024 11:59am Pneumonia January 14, 2025 11: 59am Chief Complaint Admit Date LIPOMA ON THIGH December 19, 2024 12: 55pm EXCISION OF LIPOMA- THIGH December 29 12:39pm RESP FAILURE ON BIPAP DUE TO PNEUMONIA A pril 2024 11:59am RESP FAILURE ON BIPAP DUE TO PNEUMONIA A pril 2024 12:16pm RESP FAILURE ON BIPAP DUE TO PNEUMONIA A pril 2024 11:00am RESP FAILURE ON BIPAP DUE TO PNEUMONIA A pril 2024 12:01pm RESP FAILURE ON BIPAP DUE TO PNEUMONIA A pri 2024 9:37am Chief Complaint Admit Date RESP FAILURE ON BIPAP DUE TO PNEUMONIA A pril 2024 11:59am RESP FAILURE ON BIPAP DUE TO PNEUMONIA A pril 2024 12:16pm RESP FAILURE ON BIPAP DUE TO PNEUMONIA A pril 2024 11:00am RESP FAILURE ON BIPAP DUE TO PNEUMONIA A pril 2024 12:01pm RESP FAILURE ON BIPAP DUE TO PNEUMONIA A pri 2024 9:37am 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, 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 [facility] UESTED January 27, 2025 10:08am LUNG NODULE May 08, 2025 2:4 7pm Reason for Visit Admit Date Pneumonia January 14, 2025 11: 59am Acute hypoxemic respiratory failure Apri l 2024 11:59am Asthma January 27, 2025 10: 08am Morbid obesity January 27, 2025 10: 08am Sleep apnea January 27, 2025 10: 08am Chief Complaint Admit Date RESP FAILURE ON BIPAP DUE TO PNEUMONIA A pril 2024 11:59am RESP FAILURE ON BIPAP DUE TO PNEUMONIA A pri 2024 12:01pm RESP FAILURE ON BIPAP DUE TO PNEUMONIA A pril 2024 9:37am Re-CANDI sharif at [facility] UESTED January 27, 2025 10:08am LUNG NODULE May 08, 2025 2:4 7pm cough May 16, 2025 5: 38am Additional Source Comments INFORMATION SOURCE (unrecogn ized section and content) DATE CREATED AUTHOR 03/20/2018 [facility] [place] DATE CREATED AUTHOR AUTHOR'S ORGANIZ ATION 03/22/2018 [facility] DATE CREATED AUTHOR AUTHOR'S ORGANIZ ATION 12/26/2018 [facility] DATE CREATED AUTHOR AUTHOR'S ORGANIZ ATION 12/26/2018 [facility] DATE CREATED AUTHOR AUTHOR'S ORGANIZ ATION 12/28/2018 [facility] DATE CREATED AUTHOR AUTHOR'S ORGANIZ ATION 01/23/2022 [facility] DATE CREATED AUTHOR AUTHOR'S ORGANIZ ATION 03/21/2022 [facility] DATE CREATED AUTHOR AUTHOR'S ORGANIZ ATION 05/04/2023 [facility] DATE CREATED AUTHOR AUTHOR'S ORGANIZ ATION 03/28/2024 [facility] DATE CREATED AUTHOR AUTHOR'S ORGANIZ ATION 02/26/2025 [facility] DATE CREATED AUTHOR AUTHOR'S ORGANIZ ATION 04/18/2025 [facility] DATE CREATED AUTHOR AUTHOR'S ORGANIZ ATION 05/09/2025 [facility] DATE CREATED AUTHOR AUTHOR'S ORGANIZ ATION 05/18/2025 [facility] DATE CREATED AUTHOR AUTHOR'S ORGANIZ ATION 05/22/2025 [facility] Reason for Visit (unrecogniz ed section and content) Status Reason Specialty Diagnoses / Procedures Referre d By Contact Referred To Contact Diagnoses cellulitis Rt foot, hypokalemia Reason Comments Vascular Access Problem Status Reason Specialty Diagnoses / Procedures Referred By Contact Referred To Contact Authorized Radiology Diagnoses Pseudarthrosis after fusion or arthrodesis Arthrodesis status Procedures NM White Blood Cell Prep Rigo Shelton DO [address] [place] [address] Reason Comments Post-op Problem right foot, patient reports redness and swelling at my surgery site Reason Comments Vascular Access Problem PICC would not f lush at home for 11 pm med. Specialty Diagnoses / Procedures Referred By Li mcneal Referred To Contact Diagnoses Cellulitis of left lower extremity Procedures L03.116 Macrina Schrader [address] [place] [address] [facility] 7[address] Med Surg [address] [place] [id number] Referral ID Status Reason Start Date Expiration Date Visits Re quested Visits Authorized [id number] 1 1 Reason Comments New Patient Left [...] prosthetic device, implant and graft, initial encounter ([facility]) Unspecified complication of genitourinary prosthetic device, implant and graft, initial encounter ([facility]) [T83.9XXA] Procedures MO REVISION/RMVL PERIPHERAL/GASTRIC NPGR INTERSTIM REPLACEMENT Fabrizio Leung MD [address] [place] [address], [address] [place] [address] [facility] Main Or [address] [place] [address] Referral ID Status Reason Start Date Expiration Date Visits Re quested Visits Authorized [id number] 1 1 Reason Onset Date Comments Cancelled [...] between left hip and knee, initial encounter ([facility]) 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, initial encounter ([facility]) [S78.112A] Procedures MO I&D DEEP ABSC BURSA/HEMATOMA THIGH/KNEE REGION Rusty Mercado MD [address] [facility] [address] [place] [address] Referral ID Status Reason Start Date Expiration Date Visits Re quested Visits Authorized [id number] 05/21/2023 1 1 Reason Onset Date Comments Post-op Problem 05/18/2023 Post op bleeding - DOS 05/08/23 Reason Onset Date Comments Appointment Request 05/28/2023 Specialty Diagnoses / Procedures Referred By Li mcneal Referred To Contact Diagnoses 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, initial encounter ([facility]) 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, initial encounter ([facility]) 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, initial encounter ([facility]) [B98.112A] Procedures MO I&D DEEP ABSC BURSA/HEMATOMA THIGH/KNEE REGION LEFT THIGH (ABOVE KNEE AMPUTATION) INCISION AND DRAINAGE Rusty Mercado MD [address] [facility] [address] [place] [address] [facility] Main Or [address] [place] [address] Referral ID Status Reason Start Date Expiration Date Visits Re quested Visits Authorized [id number] 1 1 Reason Comments Post-op R AKA I&D Reason Comments Follow-up Lt AKA OM Reason Comments New Patient Bilateral shoulder p ain Reason Comments New Patient Left shoulder pain Specialty Diagnoses / Procedures Referred By Li mcneal Referred To Contact Sports Medicine Diagnoses Left shoulder pain Procedures MO OFFICE/OUTPATIENT NEW HIGH MDM 60 MINUTES Bj Barroso MD [address] [facility] [address] [place] [address] [facility] [address] [facility] [address] [place] [address] Referral ID Status Reason Start Date Expiration Date V isits Requested Visits Authorized [id number] Closed Specialty Services Required 10/12/2023 10/11/2024 1 [...] surgeon. Specialty Diagnoses / Procedures Referred By Li mcneal Referred To Contact Diagnoses Superficial incisional surgical site infection Abrasion of lower leg with infection, initial encounter Procedures T81.41XA Nessa Hinojosa MD [address] [facility] [address] [place] [address] [facility] Telemetry [address] [place] [address] Referral ID Status Reason Start Date Expiration Date Visits Re quested Visits Authorized [id number] 1 1 Reason Onset Date Comments Orders 11/06/2022 Specialty Diagnoses / Procedures Referred By Li mcneal Referred To Contact Diagnoses Surgical wound infection Procedures T81.49XA Kimo Stevens MD [address] [place] [address] [facility] Emergency [facility] [address] [place] [id number] Referral ID Status Reason Start Date Expiration Date Visits Re quested Visits Authorized [id number] 1 1 Reason Comments Post-op Problem Sent from office for admit. Krystyna GILBERT 1 wk ago. Possible wound infection. Surgery tmrw with dr mercado Specialty Diagnoses / Procedures Referred By Li mcneal Referred To Contact Diagnoses Surgical wound infection Procedures T81.49XA Kimo Stevens MD [address] [place] [address] [facility] Emergency [facility] [address] [place] [phone] Reason Comments Wound Check Per EMS, patient is from home, told by Dr. Mercado to come to ED for evaluation. Patient had a left AKA on 10/31/22. Patient states she noticed redness yesterday, today she had purulent drainage. She denies any fevers or chills. Reason Comments Post-op AKA LEFT DOS (2022) Reason Comments New Patient Visit For generalized body pain, since . Deny neck and back surgery. No hip or knee pain. No image on file ith . Was using the But rans patch and it did not help. Was referred by Mad[facility] for ketamine infusions Rigo Shelton DO - 11/04/2018 7:39 AM Lupis Bautista CNP - 11/01/2018 2:32 PM EST H&P Notes (unrecognized sect ion and content) INTERVAL HISTORY AND PHYSICAL Patient Name: Siobhan Haas Admit Date: 2001009 MR #: [id number] : 1960 The H&P has been reviewed and the patient has been examined. I concur with the findings of the H&P. There are no significant changes. It is appropriate to proceed with the planned procedure. Rigo Shelton DO 11/04/2018 7:39 AM HISTORY AND PHYSICAL Patient Name: Siobhan Haas Admit Date: 2001009 MR #: [id number] : 1960 Physicians: Rigo Shelton DO (Family); Rigo Shelton* (Referring) Chief Complaint/Reason for Visit: Right foot cellulitis History of Present Illness: Siobhan Haas is a 58 y.o. female presenting from [facility] ([place], [place]) with c/o right foot pain and cellulitis. Patient had a RIGHT SUBTALAR ARTHRODESIS, TALONAVICULAR JOINT ARTHRODESIS, OBTAIN CALCANEAL AUTOGRAFT, OBTAIN TIBIAL AUTOGRAFT, FOOT HARDWARE REMOVAL, INTRAOPERATIVE CULTURES on 10/07/[address] Shelton at [facility]. She has followed up in the office [...] INTRAOPERATIVE CULTURES; Surgeon: Rigo Shelton DO; Location: [facility] Main OR; Service: Orthopedic BLADDER SUSPENSION BREAST [...] personally evaluated the patient independent of the DATA MINING ANALYST. I agree with the assessment and plan. I do not believe this is cellulitis but a reaction to a loose screw. We will plan to remove the screw. We will continue abx as a precaution.in this encounter Vielka Faulkner OT - 11/05/2018 4:16 PM Terrell Brantley LSW - 11/05/2018 2:06 PM Eva Cotton PT [...] need home IV antibiotics. Referral made to [facility] for IV infusion, Rx faxed and patient will be receiving home care services through [facility]. [facility] liaison to meet with patient at the hospital in order to complete education/teaching on home IV antibiotics prior to discharge. [employer] bundle faxed and Day of Discharge bundle faxed to [facility] and [facility]. Family to transport patient to home via [...] No Discharge Readiness Expected Discharge Date: 11/05/18 [facility] Disposition D/C Disposition: Home Health Care Services Related to Current Admission?: Yes Agency/Destination: Other([facility] ([phone], f [phone])) Home Care Needs : Home health care Infusion Agency: [facility]([phone], f [phone]) Transportation Type: Auto(Private auto with family) Physical [...] in the past with NWB, pain, see PMH for further details Number of History elements [...] Stand: Stand by assistance, Supervision, Modified independence Requisition Approver: 1 person, Gait belt, Other (Comment)(knee scooter) [...] level, Other (Comment)(1 step into bathroom, 1 LAN into apartment) Bathroom Shower/Tub: Walk-in shower Bathroom Toilet: Standard Bathroom Equipment: Commode, Shower chair Bathroom Accessibility: Accessible Home Equipment: Other (Comment), Wheelchair-manual(knee scooter, rollator) Prior Level of Function Level of [place]: Independent with ADLs and functional transfers, Independent [...] INTRAOPERATIVE CULTURES; Surgeon: Rigo Shelton DO; Location: [facility] Main OR; Service: Orthopedic BLADDER SUSPENSION BREAST REDUCTION Bilateral 2001 CARDIAC CATHETERIZATION Right 02/21/2018 [facility]ERY Right HARDWARE REMOVAL FOOT AND ANKLE Right 11/04/2018 Procedure: HARDWARE REMOVAL RIGHT FOOT INCISION AND DRAINAGE; Surgeon: Rigo Shelton DO; Location: [facility] Main OR; Service: Orthopedic HYSTERECTOMY INTERSTIM IMPLANTATION [...] Siobhan Haas Admit Date: 2001009 MR #: [id number] : 1960 Assessment and Plan: 1. Right [...] creatinine, ESR, CRP to Dr. Bonner at [phone]. Physicians: Rigo Shelton DO Chief Complaint/Reason for Visit: right foot infection History of Present Illness: Siobhan Haas is a 58 y.o. female with history of HTN, fibromyalgia who had right foot arthrodesis last month. Has had some wound healing issues. Went to OSH with worsening erythema, edema medial incision. No clear exacerbating factors. Moved to [facility] for further care. No fevers, chills, sweats. [...] INTRAOPERATIVE CULTURES; Surgeon: Rigo Shelton DO; Location: [facility] Main OR; Service: Orthopedic BLADDER SUSPENSION BREAST REDUCTION Bilateral 2001 CARDIAC CATHETERIZATION Right 02/21/2018 [facility] FOOT SURGERY Right HARDWARE REMOVAL FOOT AND ANKLE Right 11/04/2018 Procedure: HARDWARE REMOVAL RIGHT FOOT INCISION AND DRAINAGE; Surgeon: Rigo Shelton DO; Location: [facility] Main OR; Service: Orthopedic HYSTERECTOMY INTERSTIM IMPLANTATION left hip SPINAL CORD STIMULATOR IMPLANT right hip TONSILLECTOMY TOTAL KNEE ARTHROPLASTY Right 1999 Family History: No TB Social History Tobacco [...] 30 mL 30 mL Oral Q4H PRN Toney Miranda PA-C citalopram (CELEXA) tablet 40 mg 40 mg Oral QAM Gary Oquendo, DO 40 mg at 11/05/18 0745 cyclobenzaprine (FLEXERIL) tablet 10 mg 10 mg Oral Nightly Rigo Shelton, DO 10 mg at 11/04/182017 enoxaparin (LOVENOX) syringe 40 mg 40 mg Subcutaneous BID Lupis Lund CNP 40 mg at 11/05/18 0746 famotidine (PEPCID) tablet 20 mg 20 mg Oral Q12H [facility] Toney Miranda PA-C 20 mg at 11/05/18 0745 furosemide (LASIX) tablet 40 mg 40 mg Oral Daily Gagan Deluca MD gabapentin (NEURONTIN) capsule 600 mg 600 mg Oral at bedtime Gary Oquendo DO 600 mg at 11/04/182017 gabapentin (NEURONTIN) capsule 900 mg 900 mg Oral QAM Gary Oquendo, DO 900 mg at 11/05/18 0745 HYDROmorphone (DILAUDID) 0.5 mg/mL injection 0.25-0.5 mg 0.25-0.5 mg Intravenous Q3H PRN Karla See CNP 0.5 mg at 11/02/18 0642 HYDROmorphone (DILAUDID) 0.5 mg/mL injection 0.5-1.5 mg 0.5-1.5 mg Intravenous Q3H PRN Toney Miranda PA-C 1.5 mg at 11/05/18 0746 lactated Ringers infusion 100 mL/hr Intravenous Continuous Tawnya Mg MD Stopped at 11/04/18 2352 magnesium hydroxide (MOM) 400 mg/5 mL suspension 2,400 mg 30 mL Oral Daily PRN Toney Miranda PA-C meloxicam (MOBIC) tablet 7.5 mg [...] 40 mg 40 mg Oral Daily Gary Oquendo DO 40 mg at 11/03/18 0823 potassium chloride SA (K-DUR,KLOR-CON) CR tablet 40 mEq 40 mEq Oral Daily Gagan Deluca MD pramipexole (MIRAPEX) tablet 3 mg 3 mg Oral Nightly Gary Oquendo, DO 3 mg at 11/03/18 2210 senna-docusate (SENNA-S) 8.6-50 mg per tablet 1 tablet 1 tablet Oral BID Toney Miranda PA-C 1 tablet at 11/05/18 0745 sodium chloride (PF) (NS) flush 5 mL 5 mL Intravenous PRN Toney Leslie Schimmoeller, PA-C And sodium chloride (PF) (NS) flush 5 mL 5 mL Intravenous Q8H JIL Toney Leslie Schimmoeller, PA-C 5 mL at 11/05/18 0639 And sodium chloride 0.9% (NS) 0-150 mL/hr Intravenous PRN Toney Leslie Schimmoeller, PA-C spironolactone (ALDACTONE) tablet 25 mg 25 [...] IP CONSULT TO HOSPITALIST Gary Oquendo DO [facility] Hospitalists Medical Consultation Patient Name:Siobhan Haas MR #:[id number] :1960 Admit Date: 2001009 Physicians: Rigo Shelton DO (Family); Rigo Shelton* (Referring) Perpetual Assessment: Siobhan Haas is a 58 y.o. female who was transferred to [facility] under the care of Orthopedic Surgery (Rigo Shelton) with concern cellulitis of her right post-operative foot. She has presented to [facility] on the morning of 11/01/2018 with a 1 day complaint of right foot redness and swelling surrounding her incision site. [facility] was consulted for medical management. ASSESSMENT AND [...] Chronic issue this is been managed by [facility] (Alison Gibson CNP) with [...] 58 y.o. female who was transferred to [facility] under the care of Orthopedic Surgery (Rigo Shelton) with concern cellulitis of her right post-operative foot. She has presented to [facility] on the morning of 11/01/2018 with a 1 day complaint of right foot redness and swelling surrounding her incision site. [facility] was consulted for medical management. Siobhan indicates [...] This change prompted her visit to the [facility] emergency department at approximately 1 AM on 11/01/2018 ultimately leading to her transfer to [facility]. For me she denies any history of fever or shaking chills. She has not noted any new drainage from her foot despite it feeling as though it felt as though it was going to explode. As for her chronic medical conditions is noted that she is on a multi diuretic regimen. Per Siobhan she follows with [facility] and is prescribed but diuretic regimen of [...] INTRAOPERATIVE CULTURES; Surgeon: Rigo Shelton DO; Location: [facility] Main OR; Service: Orthopedic BLADDER SUSPENSION BREAST [...] status: Former Smoker Last attempt to quit: 1977 Years since quittin.1 Smokeless tobacco: Never Used [...] PICC line placed prior to discharge, [facility] liaison met the pt in hospital prior to [...] (please specify) Unable to determine Thank you, SUKI GilesN, RN Clinical Fine Arts Packer [phone] After business hours you may contact Sonam Christopher at [phone] (Weekdays until 10 PM and weekends 8 AM - 10 PM) Brief Post Operative Note Patient Name: Siobhan Haas : 1960 (58 y.o.) Date of Service: 11/01/2018 - 11/04/2018 CSN: [id number] Procedure(s): HARDWARE REMOVAL RIGHT FOOT INCISION AND DRAINAGE Pre-Operative Diagnoses: * T84.498 Post-Operative Diagnoses: * Same as Pre-Op Diagnosis Surgeon(s) and Role: * Rigo Shelton, DO - Primary Anesthesiologist: Tawnya Mg MD RN OUTPATIENT SURGERY: Lynette Miller CRNA Fleet Technician: Rosa Spence RN Physician Clothes Drier Assembler: Toney Miranda PA-C Scrub Person Preceptor: [facility] [...] TISSUE ANAEROBIC CULTURE, TISSUE FUNGUS CULTURE Rigo Shelton DO 11/04/2018 0950 2 : midfoot Tissue Foot, Right TISSUE AEROBIC CULTURE, TISSUE AFB CULTURE, TISSUE ANAEROBIC CULTURE, TISSUE FUNGUS CULTURE Rigo Shelton DO 11/04/2018 0952 Implant(s): * No implants in [...] with Dr. Shelton. Pain Manage acute pain 11/01/2018900 by Shila Chapman RN Note Let your nurse know when having pain. Take pain medication as ordered by physician. Report effectiveness of pain medication. Falls, Risk of Absence of falls 11/01/2018900 by Shila Chapman RN Note Ask for assistance when ambulating. [...] a new PICC line Report given to: CINDY Aceves Patient up to restroom with no [...] says PICC line was placed here at [facility]; in this encounter Ordered Prescriptions (unrec ognized [...] 100 mL IVPB (COMPLETED) 3,000 mg, IntraVENous, GASOLINE TRUCK CRANE OPERATOR TO O.R., 1 dose, On Xochilt 08/04/21 at 0845, Administer within 1 hour prior to incision. Recommend to repeat in 3-4 hours after initial dose if still intra-op., Pre-op (day of surgery) 1000 (Given by Other Clinician - Provider: Didi Aguilar RN) dexameth sod rwfi-uciag-xawk (TAP) syringe SOSY 30 mL (COMPLETED) 30 mL, Transabdominal Plane, ONCE, On Xochilt 08/04/21 at 1000, For 1 dose, Not a TAP block, popliteal block, PACU only 0946 (Given - Provid er: Dorina Galo RN) dexamethasone sod phos-bupiv (TAP) syringe 10 mL (COMPLETED) 10 mL, Transabdominal Plane, Administer over 7 Minutes, ONCE, On Xochilt 08/04/21 at 1015, For 1 dose, Not a TAP block, popliteal block 0946 (Given - Provid er: Dorina Galo, CINDY)0953 (Due: Stopped - Provider: Dorina Galo RN) famotidine (PEPCID) tablet 20 mg (COMPLETED) 20 mg, Oral, ONCE, On Xochilt 11/4/21 at 0845, For 1 dose, Pre-op (day of surgery) 0858 (Given - Provid er: Jing Christine RN) lidocaine PF 1 % injection 5 mL (COMPLETED) 5 mL, IntraDERmal, ONCE, On Xochilt 08/04/21 at 1000, For 1 dose, Draw up for preparation of administration during block procedure., PACU only 0946 (Given - Provid er: Dorina Galo RN) ropivacaine (NAROPIN) 0.5% injection 10 mL (COMPLETED) 10 mL, Infiltration, ONCE, On Xochilt 08/04/21 at 1000, For 1 dose, Draw up 10ml for Saphenous block., PACU only 0946 (Given - Provid er: Dorina Galo RN) sodium chloride flush 0.9 % injection [...] MIN PRN, Pain Severe (7-10), Starting on Oxchilt 08/04/21 at 0937, For 4 doses, Phase [...] (Given - Provid er: Dorina Galo RN) ondansetron (ZOFRAN) injection 4 mg 4 mg, IntraVENous, ONCE PRN, Nausea, Starting on Xochilt 08/04/21 at 0937, For 1 dose, Initial antiemetic therapy., PACU only oxyCODONE (ROXICODONE) immediate release tablet 10 mg(Linked Group 1) 10 mg, Oral, PRN, Pain Severe (7-10), Starting on Xochilt [...] PRN, Pain Moderate (4-6), Starting on Xochilt 11/4/21 at 0937, For 1 dose
PHASE II
PACU only Or oxyCODONE (ROXICODONE) immediate release tablet 10 mgJump to med 10 mg, Oral, PRN, Pain Severe (7-10), Starting on Xochilt 08/04/21 at 0937, For 1 dose
PHASE II
PACU only Scheduled Medication Order 11/11/2021 11/12/2021 11/13/2021 alteplase (CATHFLO) injection 1 mg (COMPLETED) 1 mg, IntraCATHeter, ONCE, On 11/13/21 at 0200, For 1 dose, NOT [...] mg (COMPLETED) 1 mg, IntraCATHeter, ONCE, On 11/13/21 at 0215, For 1 dose, NOT FOR [...] mg (COMPLETED) 1,000 mg, Oral, ONCE, On 12/19/21 at 0745, For 1 dose, Maximum dose [...] 100 mL IVPB (COMPLETED) 3,000 mg, IntraVENous, GASOLINE TRUCK CRANE OPERATOR TO O.R., 1 dose, On Sun12/19/21 at [...] measurements taken from different sites, Starting on 12/19/21 at 0854, For 2 doses
If heart [...] 100 mL IVPB (COMPLETED) 3,000 mg, IntraVENous, GASOLINE TRUCK CRANE OPERATOR TO O.R., 1 dose, On Sun01/11/22 at [...] at 200 mL/hr, Administer over 60 Minutes, Finish Repairer to O.R., On Xochilt 02/22/23 at 0845, [...] at 100 mL/hr, Administer over 60 Minutes, Finish Repairer to O.R., On Xochilt 02/22/23 at 0845, [...] on Xochilt 02/22/23 at 2100, Recovery (only) 2099 (Canceled Entry - Provider: Automatic Discharge [...] Comment: Automatically canceled at discontinue of medication order)2044 (Canceled Entry - Provider: Automatic Discharge Provider - Comment: Automatically canceled at discontinue of medication order) Continuous Medication Order 02/20/2023 02/21/2023 02/22/2023 lactated Ringer's (LR) infusion 50 mL/hr, IntraVENous, Continuous, Starting on Xochilt 02/22/23 at 0845, Preprocedure, Upon admission to sameday - please start iv if patient does not have iv access. Use 500ml NS for patients on dialysis. 912 (New Bag - Prov ider: Kia Randle [...] hydralazine IV order. lidocaine-EPINEPHrine (Xylocaine W/EPI) 1 %-[id number] injection (CANCELED) As needed, Starting on Xochilt [...] mg, IntraVENous, Once PRN, nausea, Starting on Xochilt 02/22/23 at 1236, For [...] mg (COMPLETED) 1,000 mg, Oral, Once, On Sun05/08/23 at 0915, For 1 dose, Preprocedure, Maximum [...] - Provid er: Owen Salmeron, MITCH - MILDRED) famotidine (Pepcid) tablet 20 mg (COMPLETED) 20 [...] (New Bag - Prov ider: Anette Villalobos RN)131 (Continued by Anesthesia - Provider: MITCH Odell CRNA)1317 (Paused - Provider: MITCH Odell CRNA - Comment: Switch to gravity)1318 (Restarted - Provider: MITCH Odell CRNA)1439 (Anesthesia Volume Adjustment - Provider: MITCH Sparks CRNA) lactated ringers infusion 125 mL/hr, IntraVENous, [...] For 1 dose, Recovery (only), PHASE II 1525 (Given - Provid er: Federica Ray RN) [...] Intraprocedure 1338 (Given - Provid er: Rusty Mercado MD) sodium chloride 0.9% (NS) flush 10 [...] override 1511 (Given - Provid er: Federica aRy RN) Linked Groups Order Group 1: labetalol [...] Sun05/22/23 at 0930, For 1 dose, Preprocedure 0930 (Given - Provid er: Anette Villalobos RN - Comment: barcode unreadable) clindamycin in NS (Cleocin) IVPB 900 mg (COMPLETED) 900 mg, IntraVENous, at 50 mL/hr, Administer over 60 Minutes, Once, On Sun05/22/23 at 0900, For 1 dose, Preprocedure, Administer within 1 hour prior to Incision., Suspected Indication (Select all that apply): Surgical Prophylaxis 1206 (Given - Provid er: Keanu Ace APRN - RN OUTPATIENT SURGERY) famotidine (Pepcid) tablet 20 mg (COMPLETED) 20 mg, Oral, Once, On Sun05/22/23 at 0930, For 1 dose, Preprocedure 0927 (Given - Provid er: Anette Villalobos RN) gabapentin (Neurontin) capsule 100 mg 100 mg, Oral, Once, On Sun05/22/23 at 0930, For 1 dose, Preprocedure, For Age >69 or Low GFR. 0930 (Not Given - Pr ovider: Anette Villalobos [...] For 1 dose, Recovery (only), PHASE II 1437 (Given - Provid er: Vijaya Laughlin RN) [...] Intraprocedure 1228 (Given - Provid er: Rusty Mercado MD) sodium chloride 0.9% (NS) flush 10 [...] Intraprocedure 1235 (Given - Provid er: Rusty Mercado MD - Comment: LEFT LEG) Linked Groups [...] in 24 hours. 0204 (Given - Provider: Dinora Brown RN)0515 (Given - Provider: Dinora Brown RN)1135 (Given - Provider: Payton Zarate RN)1500 (Not Given - Provider: Payton Zarate RN - Reason: Patient/family refused)1720 (Given - Provider: Payton Zarate RN)2101 (Given - Provider: Kevin Martinez RN) 0245 (Not Given - Provider: Jon South RN - Reason: Other - Comment: sleeping)0529 (Given - Provider: Jon South RN)1015 (Given - Provider: Nidhi Araya RN)1425 (Given - Provider: Nidhi Araya RN)1838 (Given - Provider: Nidhi Araya RN)2023 (Given - Provider: Jon South RN) 024 (Not Given - Provider: Jon South RN - Reason: Other)0511 (Given - Provider: Jon South RN)1020 (Given - Provider: Nidhi Araya RN)1457 (Given - Provider: Fly Schultz RN) amitriptyline (Elavil) tablet 100 mg 100 mg, Oral, Nightly, First dose on Sun05/29/23 at 2100 2058 (Given - Provider: Kevin Martinez RN) 2023 (Given - Provider: Jon South, CINDY) citalopram (CeleXA) tablet 20 mg 20 mg, [...] refused)2099 (Given - Provider: Kevin Martinez RN) 0846 (Given - Provider: Nidhi Araya RN)2023 (Given - Provider: Jon South RN) 0845 (Given - Provider: Nidhi Araya RN) enoxaparin (Lovenox) syringe 30 mg 30 mg, SubCUTAneous, Every 12 hours scheduled (2 times per day), First dose on Sun05/29/23 at 2100, Indication of Use: Prophylaxis-DVT/PE 09 (Dose Auto Held - Provider: John Moses MD)2099 (Dose Auto Held - Provider: John Moses MD) 0722 (Unheld by provider - Provider: Joanna Sandoval PA-C)0900 (Not Given - Provider: Nidhi Araya RN - Reason: Other - Comment: no anticoagulants ordered)2099 (Given - Provider: Jon South RN) 0900 (Not Given - Provider: Nidhi Araya [...] Kevin Martinez RN)2129 (Stopped - Provider: Jon South, RN) 2028 (New Bag - Provider: Jon South RN)2058 (Stopped - Provider: Jon South RN) gabapentin (Neurontin) capsule 300 mg 300 mg, Oral, 2 times daily, First dose on Sun05/29/23 at 1445 0800 (Given - Provider: Payton Zarate RN)2099 (Given - Provider: Kevin Martinez RN) 0846 (Given - Provider: Nidhi Araya RN)2023 (Given - Provider: Jon South RN) 0845 (Given - Provider: Nidhi Araya RN) Lidocaine [...] Nidhi Araya RN)2024 (Given - Provider: Jon South RN) 1104 (Given - Provider: Nidhi Araya RN - Comment: pt with PT) montelukast (Singulair) tablet 10 mg 10 mg, Oral, Daily, First dose on Sun05/29/23 at 1800 0800 (Given - Provider: Payton Zarate RN) 0846 (Given - Provider: Nidhi Araya RN) 0845 (Given - Provider: Nidhi Araya RN) pantoprazole (ProtoNix) EC tablet 40 mg 40 mg, Oral, Daily before breakfast, First dose on Sun05/30/23 at 0700, Substituted for omeprazole (Prilosec). Do not crush, chew, or split. 0516 (Given - Provider: Dinora Brown RN) 0529 (Given - Provider: Jon South, CINDY) 0511 (Given - Provider: Jon South RN) sodium chloride 0.9% (NS) flush 10 mL 10 mL, IntraCATHeter, Every 12 hours, First dose on Sun06/05/23 at 1230, Administer to each lumen, regardless of whether or not fluids are infusing. Line Care. Use 10 mL or larger syringe. 0122 (Given - Provider: Dinora Brown RN)1230 (Given - Provider: Payton Zarate RN)2101 (Given - Provider: Kevin Martinez RN) 0030 (Given - Provider: Jon South, CINDY)1230 (Not Given - Provider: Fly Schultz RN - Reason: IV Fluids Infusing) 0030 (Given - Provider: Jon South RN)1230 (Given - Provider: Nidhi Araya RN) vancomycin [...] Staph, Methicillin-Resistant 0114 (New Bag - Provider: Dinora Brown RN)0314 (Stopped - Provider: Dinora Brown RN)1402 (New Bag - Provider: Payton Zarate RN)1602 (Stopped - Provider: Payton Zarate, RN) Continuous Medication Order 06/06/2023 06/07/2023 06/08/2023 lactated Ringer's (LR) infusion 50 mL/hr, IntraVENous, Continuous, Starting on Sun05/29/23 at 0930, Upon admission to sameday - please start iv if patient does not have iv access. Use 500ml NS for patients on dialysis. 1823 (New Bag - Provider: Payton Zarate RN) PRN Medication Order 06/06/2023 06/07/2023 06/08/2023 albuterol [...] specifically ordered. 0327 (See Alternative - Provider: Dinora Brown RN)0757 (See Alternative - Provider: Payton Zarate RN)1402 (See Alternative - Provider: Payton Zarate, CINDY)1819 (See Alternative - Provider: Payton Zarate RN)2336 [...] unless specifically ordered. 0327 (Given - Provider: Dinora Brown RN)0757 (Given - Provider: Payton Zarate [...] Sun05/29/23 at 1441 0204 (Given - Provider: Dinora Brown RN)1136 (Given - Provider: Payton Zarate RN)1719 (Given - Provider: Payton Zarate RN) 0239 (Given - Provider: Jon Brannon, RN)0846 (Given - Provider: Nidhi Araya, RN)1737 (Given - Provider: Fly Schultz, RN) 1019 (Given - Provider: Nidhi Araya, RN)1457 (Given - Provider: Fly Schultz, RN) oxyCODONE (Roxicodone) immediate release tablet 5 mg(Linked Group 3) 5 mg, Oral, Every 4 hours PRN, moderate pain (4-6), Starting on Sun05/29/23 at 1441 0204 (See Alternative - Provider: Dinora Brown RN)1136 (See Alternative - Provider: Payton Zarate, RN)1719 (See Alternative - Provider: Payton Zarate, RN) 0239 (See Alternative - Provider: Jon South RN)0846 (See Alternative - Provider: Nidhi Araya RN)1737 (See Alternative - Provider: Fly Schultz, RN) 1019 (See Alternative - Provider: Nidhi Araya, RN)1457 (See Alternative - Provider: Fly Schultz, RN) polyethylene glycol (PEG) 3350 (Miralax) packet [...] Starting on Sun05/29/23 at 1248
1st Line. Give IV if [...] remaining blood product. 1709 (Restarted - Provider: MITCH Story CRNA)1928 (Stopped - Provider: MITCH Story CRNA) PRN Medication Order 10/31/2022 11/01/2022 11/02/2022 acetaminophen (Tylenol) tablet 650 mg (CANCELED) 650 mg, Oral, Every 6 hours PRN, mild pain (1-3), Starting on Sun10/31/22 at 0247, Maximum dose of acetaminophen is 4000 mg from all sources in 24 hours. 0307 (Given - Provider: Chelsea Martinez, CINDY)1517 (MAR Hold - Provider: Automatic Transfer Provider - Reason: Patient not available)2156 (NOV Unhold - Provider: Siobhan Esquivel, SUPERVISOR HAND SILVERING - DATA MINING ANALYST) albuterol (2.5 MG/3ML) 0.083% nebulizer solution 2.5 [...] hour of each other unless specifically ordered. 0038 (See Alternative - Provider: Tg Mares RN)0907 (See Alternative - Provider: Katie Vallejo, CINDY) 0204 (See Alternative - Provider: Norma Weber, CINDY) HYDROmorphone (Dilaudid) injection 0.5 mg (CANCELED) 0.5 [...] hour of each other unless specifically ordered. 0038 (Given - Provider: Tg Mares RN)0907 (Given - Provider: Katie Vallejo, CINDY) 0204 (Given - Provider: Norma Weber, CINDY) LORazepam (Ativan) injection 0.5 mg (COMPLETED) 0.5 [...] Transfer Provider - Reason: Patient not available)2222 (MAR Unhold - Provider: Automatic Transfer Provider) 0835 [...] 1743, Intraprocedure 1743 (Given - Provider: Rusty Mercado MD) Linked Groups Order Group 1: HYDROmorphone [...] RN)1254 (Given - Provider: Evgeny Olea RN) amitriptyline (Elavil) tablet 25 mg 25 mg, Oral, Nightly, First dose on Sun11/10/22 at 2099 2028 (Given - Provider: Simba Ham RN) 2006 (Given - Provider: Simba Ham RN) 2100 (Canceled Entry - Provider: Automatic Discharge Provider - Comment: Automatically canceled at discontinue of medication order) apixaban (Eliquis) tablet 5 mg 5 mg, Oral, 2 times daily, First dose (after last modification) on Xochilt 11/23/22 at 1945, Anticoagulant 0925 (Given - Provider: Mamta Cooley)2028 (Given - Provider: Simba Ham RN) 0923 (Given - Provider: Bozena Sow LPN)2006 (Given - Provider: Simba Ham RN) 102 (Given - Provider: Evgeny Olea, CINDY)2100 (Canceled Entry - Provider: Automatic Discharge Provider - Comment: Automatically canceled at discontinue of medication order) aspirin EC tablet 81 mg 81 mg, Oral, Daily, First dose on Sun11/22/22 at 0900, Phase II/On Unit, Do not crush, chew, or split. 0925 (Given - Provider: Mamta Cooley) 0923 (Given - Provider: Bozena Sow LPN) 1027 (Given - Provider: Evgeny Olea, CINDY) bisacodyl (Dulcolax) EC tablet 5 mg 5 mg, Oral, Daily, First dose on 11/18/22 at 1030, Do not give within 1 [...] LPN) 1027 (Given - Provider: Evgeny Olea, CINDY) ergocalciferol (Vitamin D2) capsule 1.25 mg 1.25 [...] Ham RN) 1028 (Given - Provider: Evgeny Olea RN)2100 (Canceled Entry - Provider: Automatic Discharge Provider - Comment: Automatically canceled at discontinue of medication order) gabapentin (Neurontin) capsule 100 mg 100 mg, Oral, 3 times daily, First dose on Sun11/17/22 at 1400 0913 (Given - Provider: Bozena Sow LPN)1411 (Given - Provider: Julia Ryan RN)2032 (Given - Provider: Simba Ham RN) 09 (Given - Provider: Bozena Sow LPN)1624 (Given [...] Provider: Remy Vera RN)1728 (Given - Provider: aRdha Uriarte RN) 0438 (Given - Provider: Simba Ham RN)2006 (Given - Provider: Simba Ham RN) 0531 (Given - Provider: Simba Ham RN)1755 (Given - Provider: Evgeny Olea, CINDY) Lidocaine 4 % patch 1 patch 1 [...] 0900 (Not Given - Provider: Evgeny Olea, CINDY - Reason: Patient/family refused) meropenem (Merrem) 2,000 [...] Ham RN)1030 (New Bag - Provider: Evgeny Olea, RN)1330 (Stopped - Provider: Evgeny Olea RN)1530 (New Bag - Provider: Ann Wolfe RN)1830 (Due: Stopped - Provider: Ann Wolfe RN) methocarbamol (Robaxin) tablet 750 mg 750 mg, Oral, Every 8 hours scheduled (3 times per day), First dose on Sun11/22/22 at 1400 0539 (Given - Provider: Remy Vera RN)1432 (Given - Provider: Mamta Cooley)2031 (Given - Provider: Simba Ham RN) 0440 [...] and incidence of candidiasis. Do not swallow. 0927 (Given - Provider: Mamta Cooley)2031 (Given - Provider: Simba Ham RN) 0800 (Given - Provider: Bozean Sow LPN)2006 (Given - Provider: Simba Ham RN) 1029 (Given - Provider: Evgeny Olea RN)2000 (Canceled Entry - Provider: Automatic Discharge Provider [...] at 1345, Hold if having loose stools. 0927 (Given - Provider: Mamta Cooley) 0923 (Given - Provider: Bozena Sow LPN) 0900 (Not Given - Provider: Evgeny Olea, CINDY - Reason: Patient/family refused) senna-docusate sodium (Senokot-S) 8.6-50 MG tablet 2 tablet 2 tablet, Oral, Nightly, First dose on Sun11/15/22 at 2100, Hold if having loose stools. 2027 (Given - Provider: Simba Ham RN) 2006 (Given - Provider: Simba Ham RN) 2100 (Canceled Entry - Provider: Automatic [...] RN)1254 (See Alternative - Provider: Evgeny Olea, CINDY)1755 (See Alternative - Provider: Evgeny Olea, CINDY) HYDROmorphone (Dilaudid) injection 0.5 mg(Linked Group 1) [...] Uriarte RN)1535 (Given - Provider: Julia Ryan RN)2029 (Given - Provider: Simba Ham RN) 0536 (Given - Provider: Simba Ham RN) 0129 (Given - Provider: Simba Ham RN)1254 (Given - Provider: Evgeny Olea, CINDY)1755 (Given - Provider: Evgeny Olea, CINDY) LORazepam (Ativan) tablet 0.5 mg 0.5 mg, [...] 2230 (Given - Provider: Priya Jack RN) 203 (Given - Provider: Sravani Pugh RN) 2100 [...] 0954 (Not Given - Provider: Divya Santana, MEDIA SALES EXECUTIVE - Reason: Patient/family refused) citalopram (CeleXA) tablet [...] Infection 1503 (New Bag - Provider: Kary Virgen, CINDY)1533 (Stopped - Provider: Kary Virgen RN) 1411 (New Bag - Provider: Kary Virgen RN)1441 (Stopped - Provider: Kary Virgen RN) enoxaparin (Lovenox) syringe 40 mg (CANCELED) 40 mg, SubCUTAneous, Daily, First dose (after last modification) on Sun12/06/22 at 0900, Phase II/On Unit, Indication of Use: Prophylaxis-DVT/PE 1052 (Given - Provider: Namrata Zhu RN) 0846 (Given - Provider: Kary Virgen RN) ferrous sulfate tablet 325 mg 325 mg, Oral, Daily with breakfast, First dose on Sun12/13/22 at 0800 gabapentin (Neurontin) capsule 300 mg 300 mg, Oral, Nightly, First dose on Sun12/04/22 at 0100 2226 (Given - Provider: Priya Jack RN) 2033 (Given - Provider: Sravani Pugh RN) 2100 (Canceled Entry - Provider: Automatic Discharge Provider - Comment: Automatically canceled at discontinue of medication order) heparin flush injection 250 Units 250 Units, IntraCATHeter, Every 12 hours, First dose on Xochilt 12/07/22 at 1700, Each lumen. Do NOT administer to lumens with continuous fluids currently infusing. Line Care. Use 10 mL or larger syringe. 0508 (Given - Provider: Daniel Singh RN)1700 (Not Given - Provider: Namrata Zhu RN - Reason: Other) 0615 (Given - Provider: Priya Jack RN)1647 (Given - Provider: Kary Virgen RN) 0613 (Given - Provider: Sravani Pugh, RN)1445 (Given - Provider: Kary Virgen RN) iron sucrose (Venofer) 200 mg in sodium chloride 0.9 % 100 mL IVPB (COMPLETED) 200 mg, IntraVENous, at 100 mL/hr, Administer over 60 Minutes, Once, On Sun12/12/22 at 1045, For 1 dose, Observe for signs and symptoms of hypersensitivity and/or anaphylactic-type reactions per institutional standard during and following administration. 1113 (New Bag - Provider: Kary Virgen RN)1213 (Stopped - Provider: Kary Virgen RN) Lidocaine 4 % patch 1 patch [...] RN) 0846 (Medication Applied - Provider: Kary Virgen RN)2046 (Medication Removed - Provider: Sravani Pugh RN) [...] Namrata Zhu RN)1511 (Stopped - Provider: Namrata Zhu RN)2100 (New Bag - Provider: Priya Jack RN)2130 (Stopped - Provider: Priya Jack RN) 0436 (New Bag - Provider: Anahi Hughes RN)0506 (Stopped - Provider: Priya Jack RN)1200 (New Bag - Provider: Kary Virgen RN)1230 (Stopped - Provider: Kary Virgen, CINDY)2045 (New Bag - Provider: Sravani Pugh RN)2115 (Stopped - Provider: Sravani Pugh RN) 0611 (New Bag - Provider: Sravani Pugh RN)0700 (Stopped - Provider: Kary Virgen RN)1335 (New Bag - Provider: Kary Virgen RN)1405 (Stopped - Provider: Kary Virgen RN)2000 (Canceled Entry - Provider: Automatic Discharge Provider - Comment: Automatically canceled at discontinue of medication order) methocarbamol (Robaxin) tablet 750 mg 750 mg, Oral, Every 8 hours scheduled (3 times per day), First dose on Sun12/04/22 at 0600 0549 (Given - Provider: Daniel Singh RN)1442 (Given - Provider: Namrata Zhu, RN)2100 (Given - Provider: Priya Jack RN) [...] RN) 0854 (Given - Provider: Kary Virgen RN)2100 (Given - Provider: Sravani Pugh RN) 0838 (Given - Provider: Kary Virgen RN)2100 (Canceled [...] not swallow. 1059 (Given - Provider: Namrata Zhu, RN)2134 (Given - Provider: Priya Jack, CINDY) 0850 (Given - Provider: Kary Virgen RN)2044 (Given - Provider: Sravani Pugh, CINDY) 0837 (Given - Provider: Kary Virgen, CINDY)1999 (Canceled Entry - Provider: Automatic Discharge Provider [...] Patient/family refused) 2032 (Given - Provider: Sravani Pugh, CINDY) 2099 (Canceled Entry - Provider: Automatic Discharge Provider - Comment: Automatically canceled at discontinue of medication order) sodium chloride 0.9% (NS) flush 10 mL 10 mL, IntraCATHeter, Every 12 hours, First dose on Xochilt 12/07/22 at 1700, Administer to each lumen, regardless of whether or not fluids are infusing. Line Care. Use 10 mL or larger syringe. 0555 (Given - Provider: Daniel Singh RN)1700 (Not Given - Provider: Namrata Zhu RN - Reason: Other) 0500 (Not Given - Provider: Priya Jack RN - Reason: IV Fluids Infusing)1647 (Given - Provider: Kary Virgen RN) 0613 (Given - Provider: Sravani Pugh RN)1556 [...] Zhu RN) 0847 (Given - Provider: Kary Virgen RN) 0836 (Given - Provider: Kary Virgen RN) vancomycin (Vancocin) 1,500 mg in dextrose 5 [...] hours. 1051 (See Alternative - Provider: Namrata Zhu, CINDY) acetaminophen (Tylenol) tablet 650 mg(Linked Group 1) [...] PRN, wheezing, Starting on Sun12/04/22 at 0044 2033 (Given - Provider: Sravani Pugh, CINDY) heparin flush injection 250 Units 250 Units, [...] Daniel Singh RN)2243 (Given - Provider: Priya Jack RN) melatonin tablet 5 mg 5 mg, Oral, Nightly PRN, sleep, Starting on Sun12/04/22 at 0044, Indications: Insomnia 2243 (Given - Provider: Priya Jack, CINDY) 2127 (Given - Provider: Sravani Pugh, CINDY) ondansetron (Zofran) injection 4 mg(Linked Group 2) [...] Daniel Singh RN)1442 (Given - Provider: Namrata Zhu, CINDY)2226 (Given - Provider: Priya Jack, CINDY) 0846 (Given - Provider: Kary Virgen, CINDY)2128 (Given - Provider: Sravani Pugh RN) 0927 (Given - Provider: Kary Virgen, CINDY) sodium chloride 0.9% (NS) flush 10 mL [...]
Care Teams (unrecognized sec tion and content) Infectious Disease Technician Relationship Specialty Start Date End Date Oj Maddox, [facility] PCP - General 02/03/19 Infectious Disease Technician Relationship Specialty Start Date End Date Oj Maddox, [facility] PCP - General 02/03/19 Infectious Disease Technician Relationship Specialty Start Date End Date Oj Maddox, [facility] PCP General 02/03/19 Team Status: Active Member Role Status Dates Oj Maddox PREPARATION PLANT REPAIRER, [employer]ATION [employer]ANT REPAIRER-C Family Provider Activ e Oj Maddox PREPARATION PLANT REPAIRER, PREPARATION PLANT REPAIRER-C Primary Care Provider Active Team Status: Active Member Role Status Dates Oj Maddox PREPARATION PLANT REPAIRER, PREPARATION PLANT REPAIRER-C Primary Care Provider Active Dr. Mario Marcelo MD Emergency Provider Active Dr. Phylicia Hurtado MD Admit Provider, Referring Provider, Other Provider Active Dr. Ludwin Lo DO Attending Provider, Other Provide r Active Dr. Mag Cantu MD Other Provider Active Team Status: Active Member Role Status Dates Oj Maddox PREPARATION PLANT REPAIRER, PREPARATION PLANT REPAIRER-C Primary Care Provider Active Dr. Rosenda Freedman MD Attending Provider Active Team Status: Active Member Role Status Dates Oj Maddox PREPARATION PLANT REPAIRER, PREPARATION PLANT REPAIRER-C Primary Care Provider Active Dr. Mario Marcelo MD Emergency Provider Active Dr. Phylicia Hurtado MD Admit Provider, Other Provider Active Dr. Ludwin Lo DO Other Provider Active Dr. Mag Cantu MD Attending Provider, Other Prov ider Active Dr. Andrea Royal MD Other Provider Active Team Status: Active Member Role Status Dates Oj Maddox PREPARATION PLANT REPAIRER, PREPARATION PLANT REPAIRER-C Primary Care Provider Active Dr. Andrea Prasad MD Attending Provider Active Dr. Andrea Royal MD Referring Provider Active Team Status: Active Member Role Status Dates Oj Maddox PREPARATION PLANT REPAIRER, PREPARATION PLANT REPAIRER-C Primary Care Provider Active Dr. Mario Marcelo MD Emergency Provider Active Dr. Phylicia Hurtado MD Admit Provider, Other Provider Active Dr. Mag Cantu MD Other Provider Active Dr. Andrea Royal MD Other Provider Active Dr. Ludwin Lo DO Attending Provider, Other Provide r Active Team Status: Active Member Role Status Dates Oj Maddox PREPARATION PLANT REPAIRER, PREPARATION PLANT REPAIRER-C Primary Care Provider Active Dr. Mario Marcelo MD Emergency Provider Active Dr. Phylicia Hurtado MD Admit Provider, Other Provider Active Dr. Mag Cantu MD Attending Provider, Other Prov ider Active Dr. Andrea Royal MD Other Provider Active Dr. Ludwin Lo , Other Provider Active Team Status: Active Member Role Status Dates Oj Maddox PREPARATION PLANT REPAIRER, PREPARATION PLANT REPAIRER-C Primary Care Provider Active Dr. Mario Marcelo [...] Active Member Role Status Dates Oj Maddox PREPARATION PLANT REPAIRER, PREPARATION PLANT REPAIRER-C Primary Care Provider Active Dr. Mario Marcelo MD Emergency Provider Active Dr. Phylicia Hurtado MD Admit Provider, Other Provider Active Dr. Andrea Royal MD Other Provider Active Dr. Ludwin Lo DO Other Provider Active Dr. Kelsey Lima MD Attending Provider, Other Provid er Active Dr. Mag Cantu MD Other Provider Active Team Status: Active Member Role Status Dates Oj Maddox PREPARATION PLANT REPAIRER, PREPARATION PLANT REPAIRER-C Primary Care Provider Active Dr. Eulalio De La Cruz MD Referring Provider, Emergency Pro vider Active Dr. Rigo Trinidad MD Attending Provider Active Team Status: Inactive Member Role Status Dates Oj Maddox PREPARATION PLANT REPAIRER, PREPARATION PLANT REPAIRER-C Primary Care Provider, Referring Provider Active Adwoa Cruz PREPARATION PLANT REPAIRER, PREPARATION PLANT REPAIRER-C Attending Provider Active Team Status: Active Member Role Status Dates Oj Maddox PREPARATION PLANT REPAIRER, PREPARATION PLANT REPAIRER-C Primary Care Provider Active Dr. David Felipe , DO Emergency Provider Active Dr. Mag Cantu MD Admit Provider, Other Provider Active Dr. Rigo Trinidad MD Attending Provider, Other Provider Active Team Status: Inactive Member Role Status Dates Oj Maddox PREPARATION PLANT REPAIRER, PREPARATION PLANT REPAIRER-C Primary Care Provider Active Dr. Mario Marcelo MD Emergency Provider Active Dr. Phylicia Hurtado MD Admit Provider, Other Provider Active Dr. Andrea Royal MD Other Provider Active Dr. Ludwin Lo , Other Provider Active Dr. Kelsey Lima MD Attending Provider Active Dr. Mag Cantu MD Other Provider Active Team Status: Inactive Member Role Status Dates Oj Maddox PREPARATION PLANT REPAIRER, PREPARATION PLANT REPAIRER-C Primary Care Provider Active Dr. Eulalio De La Cruz MD Attending Provider, Emergency Pro vider Active Team Status: Inactive Member Role Status Dates Oj Maddox PREPARATION PLANT REPAIRER, PREPARATION PLANT REPAIRER-C Primary Care Provider Active Dr. David Felipe , DO Emergency Provider Active Dr. Mag Cantu MD Admit Provider, Other Provider Active Dr. Rigo Trinidad MD Attending Provider Active Team Status: Active Member Role Status Dates jO Maddox PREPARATION PLANT REPAIRER, PREPARATION PLANT REPAIRER-C Primary Care Provider Active Dr. Chris Gomez MD Attending Provider Active Dr. Laron Campoverde MD Referring Provider Active Team Status: Active Member Role Status Dates Oj Maddox PREPARATION PLANT REPAIRER, PREPARATION PLANT REPAIRER-C Primary Care Provider Active Dr. Louis Martinez MD Attending Provider Active Dr. Mag Cantu MD Referring Provider Active Team Status: Inactive Member Role Status Dates Oj Maddox PREPARATION PLANT REPAIRER, PREPARATION PLANT REPAIRER-C Primary Care Provider Active Maximino Hubbard MD Emergency Provider Active Infectious Disease Technician Relationship Specialty Start Date End Date Oj Maddox [address] [place] [address] PCP - General 02/03/19 Infectious Disease Technician Relationship Specialty Start Date End Date Oj Maddox [address] [place] [address] PCP - General 02/03/19 Infectious Disease Technician Relationship Specialty Start Date End Date Oj Maddox [address] [place] [address] PCP - General 02/03/19 Infectious Disease Technician Relationship Specialty Start Date End Date Oj Maddox [address] [place] [address] PCP - General 02/03/19 Infectious Disease Technician Relationship Specialty Start Date End Date Oj Maddox [address] [place] [address] PCP - General 02/03/19 Infectious Disease Technician Relationship Specialty Start Date End Date Oj Maddox [address] [place] [address] PCP - General 02/03/19 Infectious Disease Technician Relationship Specialty Start Date End Date Oj Maddox [address] [place] [address] PCP - General 02/03/19 Infectious Disease Technician Relationship Specialty Start Date End Date Oj Maddox [address] [place] [address] PCP - General 02/03/19 Infectious Disease Technician Relationship Specialty Start Date End Date Varsha, Oj [address] [place] Family [place] [address] PCP - General 02/03/19 Infectious Disease Technician Relationship Specialty Start Date End Date Oj Maddox [address] [place] [address] PCP - General 02/03/19 Infectious Disease Technician Relationship Specialty Start Date End Date Oj Maddox [address] [place] [address] PCP - General 02/03/19 Infectious Disease Technician Relationship Specialty Start Date End Date Oj Maddox [address] [place] [address] PCP - General 02/03/19 Infectious Disease Technician Relationship Specialty Start Date End Date Oj Maddox [address] [place] [address] PCP - General 02/03/19 Infectious Disease Technician Relationship Specialty Start Date End Date Oj Maddox [address] [place] [address] PCP - General 02/03/19 Infectious Disease Technician Relationship Specialty Start Date End Date Oj Maddox [address] [place] [address] PCP - General 02/03/19 Infectious Disease Technician Relationship Specialty Start Date End Date jO Maddox [address] [place] [address] PCP - General 02/03/19 Infectious Disease Technician Relationship Specialty Start Date End Date Oj Maddox [address] [place] [address] PCP - General 02/03/19 Infectious Disease Technician Relationship Specialty Start Date End Date Oj Maddox [address] [place] [address] PCP - General 02/03/19 Infectious Disease Technician Relationship Specialty Start Date End Date Oj Maddox [address] [place] [address] PCP - General 02/03/19 Infectious Disease Technician Relationship Specialty Start Date End Date Oj Maddox [address] [place] [address] PCP - General 02/03/19 Infectious Disease Technician Relationship Specialty Start Date End Date Oj Maddox [address] [place] [address] PCP - General 02/03/19 Infectious Disease Technician Relationship Specialty Start Date End Date Oj Maddox [address] [place] [address] PCP - General 02/03/19 Infectious Disease Technician Relationship Specialty Start Date End Date Oj Maddox [address] [place] [address] PCP - General 02/03/19 Infectious Disease Technician Relationship Specialty Start Date End Date Oj Maddox [address] [place] [address] PCP - General 02/03/19 Infectious Disease Technician Relationship Specialty Start Date End Date Oj Maddox [address] [place] [address] PCP - General 02/03/19 Infectious Disease Technician Relationship Specialty Start Date End Date Oj Maddox [address] [place] [address] PCP - General 02/03/19 Infectious Disease Technician Relationship Specialty Start Date End Date Oj Maddox [address] [place] [address] PCP - General 02/03/19 Infectious Disease Technician Relationship Specialty Start Date End Date Oj Maddox [address] [place] [address] PCP - General 02/03/19 Infectious Disease Technician Relationship Specialty Start Date End Date Oj Maddox [address] [place] [address] PCP - General 02/03/19 Team Status: Active Member Role Status Dates Oj Maddox PREPARATION PLANT REPAIRER, PREPARATION PLANT REPAIRER-C Primary Care Provider Active Dr. Edy Calvin DO Emergency Provider Active Dr. Laron Campoverde MD Attending Provider Active Team Status: Active Member Role Status Dates Oj Maddox PREPARATION PLANT REPAIRER, PREPARATION PLANT REPAIRER-C Primary Care Provider Active Dr. Edy Calvin , DO Emergency Provider Active Dr. Laron Campoverde MD Admit Provider, Attending Provi huy Active Team Status: Active Member Role Status Dates Oj Maddox PREPARATION PLANT REPAIRER, PREPARATION PLANT REPAIRER-C Primary Care Provider Active Dr. Edy Calvin , DO Emergency Provider Active Dr. Laron Campoverde MD Admit Provider, Other Provider Active Dr. Jon Brito , DO Attending Provider, Other Pro vider Active Team Status: Active Member Role Status Dates Oj Maddox PREPARATION PLANT REPAIRER, PREPARATION PLANT REPAIRER-C Primary Care Provider Active Dr. Edy Calvin , DO Emergency Provider Active Dr. Laron Campoverde MD Admit Provider, Other Provider Active Dr. Kelsey Lima MD Attending Provider, Other Provid er Active Dr. Jon Brito , DO Other Provider Active Team Status: Inactive Member Role Status Dates Oj Maddox PREPARATION PLANT REPAIRER, PREPARATION PLANT REPAIRER-C Primary Care Provider Active Dr. Edy Calvin , DO Emergency Provider Active Dr. Laron Campoverde MD Admit Provider, Other Provider Active Dr. Kelsey Lima MD Attending Provider Active Dr. Jon Brito , DO Other Provider Active Infectious Disease Technician Relationship Specialty Start Date End Date Oj Maddox [address] [place] [address] PCP - General 02/03/19 Infectious Disease Technician Relationship Specialty Start Date End Date Oj Maddox [address] [place] [address] PCP - General 02/03/19 Infectious Disease Technician Relationship Specialty Start Date End Date Oj Maddox [address] [place] Family Phys [place], [place] [address] PCP - General 02/03/19 Infectious Disease Technician Relationship Specialty Start Date End Date Oj Maddox [address] [place] Family [place], [place] [address] PCP - General 02/03/19 Infectious Disease Technician Relationship Specialty Start Date End Date Oj Maddox [address] [place] [address] PCP - General 02/03/19 Infectious Disease Technician Relationship Specialty Start Date End Date Oj Maddox [address] [place] [address] PCP - General 02/03/19 Infectious Disease Technician Relationship Specialty Start Date End Date Oj Maddox [address] [place] [address] PCP - General 02/03/19 Infectious Disease Technician Relationship Specialty Start Date End Date Oj Maddox [address] [place] [address] PCP - General 02/03/19 Infectious Disease Technician Relationship Specialty Start Date End Date Oj Maddox [address] [place] [address] PCP - General 02/03/19 Infectious Disease Technician Relationship Specialty Start Date End Date Oj Maddox [address] [place] [address] PCP - General 02/03/19 Infectious Disease Technician Relationship Specialty Start Date End Date Oj Maddox [address] [place] [address] PCP - General 02/03/19 Infectious Disease Technician Relationship Specialty Start Date End Date Oj Maddox [address] [place] [address] PCP - General 02/03/19 Infectious Disease Technician Relationship Specialty Start Date End Date Oj Maddox [address] [place] [address] PCP - General 02/03/19 Infectious Disease Technician Relationship Specialty Start Date End Date Oj Maddox [address] [place] [address] PCP - General 02/03/19 Infectious Disease Technician Relationship Specialty Start Date End Date Oj Maddox [address] [place] [address] PCP - General 02/03/19 Team Status: Active [...] 2024 End: December 29, 2024 Dr. Kayla Alcantraa MD Attending Provider Active Start: December 29, [...] Other Provider Active Start: January 17, 2025 Infectious Disease Technician Relationship Specialty Start Date End Date Louis Penn MD [address] [place] [address] PCP - General Family Medicine 04/29/25 Infectious Disease Technician Relationship Specialty Start Date End Date Louis Penn MD [address] [place] [address] PCP - General Family Medicine 04/29/25 Team [...] 2025 End: January 27, 2025 Adwoa Cruz PREPARATION PLANT REPAIRER, PREPARATION PLANT REPAIRER-C Attending Provider Active Start: January 27, 2025 End: January 27, 2025 Team Status: Inactive Member Role/Relationship Status Dates Dr. Louis Penn MD Primary Care Provider Active Start: May 08, 2025 End: May 08, 2025 Dania Edge NP, PREPARATION PLANT REPAIRER-C Attending Provider Active S tart: May 08, 2025 End: May 08, 2025 Dania Kely PREPARATION PLANT REPAIRER, PREPARATION PLANT REPAIRER-C Referring Provider Active S tart: May 08, 2025 End: May 08, 2025 Infectious Disease Technician Relationship Specialty Start Date End Date Louis Penn MD [address] [place] [address] PCP - General Family Medicine 04/29/25 Team [...] 2025 End: January 27, 2025 Adwoa Cruz PREPARATION PLANT REPAIRER, PREPARATION PLANT REPAIRER-C Attending Provider Active Start: January 27, 2025 End: January 27, 2025 Team Status: Inactive Member Role/Relationship Status Dates Dr. Louis Penn MD Primary Care Provider Active Start: May 08, 2025 End: May 08, 2025 Dania Edge PREPARATION PLANT REPAIRER, PREPARATION PLANT REPAIRER-C Attending Provider Active S tart: May 08, 2025 End: May 08, 2025 Dania Edge PREPARATION PLANT REPAIRER, PREPARATION PLANT REPAIRER-C Referring Provider Active S tart: May 08, 2025 End: May 08, 2025 Team Status: Inactive Member Role/Relationship Status Dates Dr. Louis Penn MD Primary Care Provider Active Start: May 16, 2025 End: May 16, 2025 Dr. August Hobson MD Emergency Provider Active Start: May 16, 2025 End: May 16, 2025 Goals (unrecognized section and content) Goals may be documented in a n alternate section Care Team (unrecognized sect ion and content) Care Team Personnel Name: Feli Wilks Clerdeja Lilly PT Position: P3 Scheduling - Construction Site Crossing Guard Advanced Member Role: Other Name: OJ MADDOX SUPERVISOR HAND SILVERING - DATA MINING ANALYST Position: P4 Advanced Practice Nurse Member Role: Primary Care Physician Address: Address: [address] [place] [id number] [place] Care Team Related Persons Name: LUZ MARINA [...] BE BASED ON THE PRIMARY CLINICAL RECORDS. [facility] [employer] provides no warranty or guarantee of the accuracy or completeness of information in this document.
--- NOTE | 2025-06-11 | CT_ITS ---
PROCEDURE: BRAIN/HEAD WITHOUT CONTRAST 06/11/2025 REASON FOR EXAM: HEADACHE TECHNIQUE: Procedure Code: CTBR Modality: CT Procedure: BRAIN/HEAD WITHOUT CONTRAST Coronal and Sagittal reconstruction series were provided. One or more dose reduction techniques were used (e.g., Automated exposure control, adjustment of the mA and/or kV according to patient size, use of iterative reconstruction technique. FINDINGS: No acute intracranial hemorrhage. No midline shift. The ventricles are normal in size and configuration. No extra-axial fluid collection is identified. No fracture. The calvarium is intact. The visualized paranasal sinuses and mastoid air cells are clear. CT/Brain/Head without Contrast IMPRESSION: No acute intracranial CT abnormality. Reading Location: [id number]
[2025-06-11 00:09] VITALS: PULSE 80; RESP 18; O2SAT 99
[2025-06-11] MEDS: DiphenhydrAMINE 50 MG/ML Syringe 25 MG IV (00:19)
[2025-06-11] MEDS: 0.9% Normal Saline (500mL Bag) 500 ML 999 ML IV (00:23)
[2025-06-11 01:12] VITALS: BP 96/15; PULSE 80; RESP 16
--- NOTE | 2025-06-11 01:43 | EX.ED.DYSGE1 ---
HPI History of Present Illness Chief Complaint: Headache Informant: patient and SNF Narrative Narrative: Patient is a 64-year-old [facility] with past medical history of hypertension and asthma as well as bilateral below the knee amputations. She states that roughly 2-3 weeks ago she was diagnosed with COVID. She states that because of that she had congestion drainage and cough. She states she has begun to feel better from that but is now noticed a headache for the past 5 days. She states that the headache came on gradually and has increased over the course of hours/days. She denies any trauma prior to the headache beginning. She states that despite taking her medications there is been no improvement and therefore she was sent in for evaluation. [facility] Medical History Bruising History of steroid therapy Diabetes Uses wheelchair Arthritis DVT (deep venous thrombosis) Easy bruising Migraine headache Gastric reflux COPD (chronic obstructive pulmonary disease) Shortness of breath on exertion Below-knee amputation of left lower 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 Pulmonary embolism Current use of prison anticoagulation Chronic wound of extremity Anemia Necrotizing fasciitis Below knee amputation Depression Rheumatoid arthritis GERD (gastroesophageal reflux disease) Former smoker BiPAP (biphasic positive airway pressure) dependence Sleep apnea Hypertension Failure of outpatient treatment Anxiety and depression Bronchospasm Asthma exacerbation Family history of diabetes mellitus (DM) Restless leg syndrome Obstructive sleep apnea Morbid obesity Fibromyalgia Reflex sympathetic dystrophy Benign essential HTN Asthma Anxiety Home Medications ?Medication ?Instructions ?Recorded ?Last Taken ?Type albuterol sulfate 90 mcg/actuation 2 puff inhalation Q6H PRN 05/11/21 08/24/22 Rx aerosol inhaler shortness of breath or wheezing #8.5 grams valsartan 320 mg tablet 320 mg PO DAILY heart 05/19/21 08/31/22 History pramipexole 1.5 mg tablet 3 mg PO QHS RESTLESS LEG SYNDROME 06/15/21 08/30/22 History amitriptyline 100 mg tablet 100 mg PO QHS PHANTOM 08/31/22 08/30/22 History PAIN/DEPRESSION cholecalciferol (vitamin D3) 1,250 1,250 mcg PO MO SUPPLEMENT 08/31/22 08/28/22 History mcg (50,000 unit) capsule metoprolol succinate 50 mg 50 mg PO DAILY blood pressure 10/16/22 Unknown History tablet,extended release 24 hr montelukast 10 mg tablet 10 mg PO DAILY asthma 10/16/22 Unknown History albuterol sulfate 2.5 mg/3 mL 1.25 mg inhalation Q4H PRN 07/21/23 Unknown History (0.083 %) solution for nebulization sob/wheezing atorvastatin 10 mg tablet 10 mg PO QHS cholesterol 07/21/23 Unknown History docusate sodium 100 mg capsule 100 mg PO DAILY constipation 07/21/23 Unknown History (Colace) fluticasone 250 mcg-salmeterol 50 1 inh inhalation BID copd 07/21/23 Unknown History mcg/dose blistr powdr for inhalation (Advair Diskus) gabapentin 300 mg capsule 300 mg PO DAILY phantom pain 07/21/23 Unknown History loratadine 10 mg tablet (Allergy 10 mg PO DAILY allergies 07/21/23 Unknown History Relief (loratadine)) melatonin 5 mg tablet 5 mg PO QHS sleep 07/21/23 Unknown History multivitamin (Daily Multi-Vitamin 1 tab PO DAILY supplement 07/21/23 Unknown History tablet) metformin 850 mg tablet 850 mg PO BID DIABETES 05/06/24 Unknown History sertraline 50 mg tablet 50 mg PO DAILY DEPRESSION 05/06/24 Unknown History acetaminophen 500 mg tablet 1,000 mg PO Q8H PRN pain 05/08/24 Unknown History (Acetaminophen Extra Strength) hydroxyzine pamoate 25 mg capsule 25 mg PO Q6H PRN anxiety 05/08/24 Unknown History (Vistaril) bisacodyl 10 mg rectal suppository 10 mg [place] QHS PRN constipation 01/14/25 Unknown History buprenorphine HCl 300 mcg buccal 300 mcg buccal BID 01/14/25 Unknown History film (Belbuca) diphenhydramine HCl 25 mg tablet 25 mg PO Q4H PRN allergic reaction 01/14/25 Unknown History (Benadryl Allergy) gabapentin 300 mg capsule 600 mg PO QHS FOR PHANTOM PAIN 01/14/25 Unknown History guaifenesin 100 mg/5 mL oral 100 mg PO Q6H PRN cough 01/14/25 Unknown History liquid (Adult Tussin Chest Congestion) guaifenesin 600 mg tablet, 600 mg PO BID PRN congestion 01/14/25 Unknown History extended release 12 hr (Mucinex) ibuprofen 200 mg tablet (Advil) 400 mg PO Q12H PRN pain 01/14/25 Unknown History lidocaine 5 % topical patch 1 patch topical QHS PAIN 01/14/25 Unknown History (DermacinRx Lidocan) magnesium hydroxide 400 mg/5 mL 2,400 mg PO DAILY PRN constipation 01/14/25 Unknown History oral suspension (Dulcolax (magnesium hydroxide)) mineral oil (Fleet Mineral Oil 118 ml [place] DAILY PRN constipation 01/14/25 Unknown History enema) polyethylene glycol 3350 17 17 g PO DAILY PRN constipation 01/14/25 Unknown History gram/dose oral powder (ClearLax) saliva substitute combo no.9 15 ml mucous membrane DAILY DRY 01/14/25 Unknown History (Biotene Dry Mouth Oral Rinse MOUTH mouthwash) ondansetron 4 mg disintegrating 4 mg PO Q6H PRN nausea and vomiting 01/27/25 Unknown History tablet potassium chloride 20 mEq 20 meq PO BID 01/27/25 Unknown History tablet,extended release dexamethasone 6 mg tablet 6 mg PO DAILY #4 tabs 05/16/25 Unknown Rx ropinirole 0.25 mg tablet 0.25 mg PO TID 05/16/25 Unknown History Allergy/AdvReac Type Severity Reaction Status Date / Time losartan (From Orniszaar) Allergy Mild Rash Verified 06/10/25 22:13 cefepime Allergy Unknown NEEDS Verified 06/10/25 22:13 FOLLOW-UP clonazepam Allergy Unknown NEEDS Verified 06/10/25 22:13 FOLLOW-UP hydromorphone Allergy Unknown NEEDS Verified 06/10/25 22:13 FOLLOW-UP ketamine Allergy Unknown NEEDS Verified 06/10/25 22:13 FOLLOW-UP lisinopril Allergy Unknown NEEDS Verified 06/10/25 22:13 FOLLOW-UP vancomycin Allergy Rash Verified 06/10/25 22:13 amlodipine AdvReac Swelling Verified 06/10/25 22:13 Family History (Reviewed 01/27/25 @ 10:52 by Adwoa Cruz ELECTRIC RANGE PREPARER, ELECTRIC RANGE PREPARER-C) Mother Hypertension Cancer Pancreatic Diabetes Father Cancer pancreatic Brother Diabetes Asthma Hypertension Grandfather Diabetes Surgical History Hx of BKA Hx of breast reduction, elective Chronic knee pain after total replacement of left knee joint H/O foot surgery History of hysterectomy History of tonsillectomy Social History (Updated 06/10/25 @ 22:14 by Joanna Franks) household members: significant other housing: prison Smoking Status: Former smoker alcohol intake: never substance use type: does not use ROS ROS ED Constitutional Constitutional ED: Denies chills or fever(s) Eyes Eyes: Reports other Details: Negative photophobia ; Denies blurry vision or change in vision ENT ENT ED: Reports rhinorrhea; Denies sore throat Cardiovascular Cardiovascular: Denies chest pain Respiratory/Chest Respiratory/Chest: Denies cough or dyspnea Gastrointestinal Gastrointestinal: Denies abdominal pain, diarrhea, nausea or vomiting Musculoskeletal Musculoskeletal: Reports neck pain Integumentary Denies rash Neurologic Neurologic: Reports headache(s) Hematologic/Lymphatic Hematologic/Lymphatic: Denies easy bleeding or easy bruising EXAM Physical Exam Const Vital Signs: 06/10/25 22:10 06/11/25 00:09 06/11/25 01:12 Temperature 99.3 F H Temperature Source Oral Pulse Rate 83 80 80 Respiratory Rate 17 18 16 Blood Pressure 111/98 H 96/15 L Blood Pressure Mean 102 42 Pulse Ox 93 99 Oxygen Delivery Method Nasal Cannula Room Air 06/11/25 02:31 Temperature 97.9 F Temperature Source Pulse Rate 81 Respiratory Rate 16 Blood Pressure 120/62 Blood Pressure Mean 81 Pulse Ox 96 Oxygen Delivery Method Positive well nourished, well developed and obese General Appearance ED: well developed; Negative for pallor Nutritional Appearance: obese HEENT HEENT Narrative: Normocephalic atraumatic No tongue or lip swelling no oral lesions no airway edema or compromise Nasal mucosa is hyperemic and boggy There is pain with palpation over top the bilateral maxillary and frontal sinuses Eyes PERRL and EOMs intact bilaterally General Eye ED: Negative for scleral icterus Neck supple Neck Narrative: No bony deformity or step-off of the cervical spine; no midline tenderness to palpation There is left paracervical tension and spasm noted that worsens with sidebending and rotation No nuchal rigidity or meningeal signs Resp normal respiratory effort and clear to auscultation bilaterally Cardio regular rate and regular rhythm Extremity Extremity Narrative: Bilateral below the knee amputations Neuro oriented x3, CN's II-XII intact bilaterally and no sensory deficits noted Neuro Narrative: GCS of 15 Cranial nerves II through XII are grossly intact without focal neurologic deficit No pronator drift no dysmetria no truncal ataxia NIH stroke scale score of 0 Sensorium / Orientation: alert Motor Exam: strength 5/5 throughout Psych mental status grossly normal Skin no rashes or lesions noted General Skin Exam: Negative for jaundice or pallor MDM MDM MDM Narrative Medical decision making narrative: Patient arrived to the ER with stable vitals. She reported headache that came on gradually and has increased over hours to days. There is no report or signs of trauma. The fact that she had COVID recently and has congestion and pain over top the sinuses concerning for a sinus headache versus sinusitis. Patient also could have a subarachnoid or subdural hemorrhage or brain mass. Therefore elected perform a noncontrast CT of the head. Head CT revealed no acute findings. He did not show any fluid layering or thickening of the sinus passages. After receiving IV fluids Toradol Benadryl Reglan Decadron as well as morphine Zofran and Valium the patient did have complete resolution of her headache and was able to sleep. At this time I feel that her headache is related to sinus inflammation and muscular tension. She does not have physical exam or vital sign findings to suggest meningitis. CT scan does not reveal findings of bleed or mass. As the CT does not reveal thickening of the sinuses I do not feel she warrants oral antibiotics as the sinus inflammation is most likely viral in nature. Therefore at this time his vitals are stable neurologic exam normal and patient's had resolution of her headache there is no need for further intervention and she is otherwise safe for discharge History & Record Review Discussion w/independent historian: Patient Radiography Diagnostic Testing: Clinical Impression(s) from Imaging Studies Brain CT 06/11/25 00:00 IMPRESSION: No acute intracranial CT abnormality. Reading Location: [facility] Discharge Plan Triage Chief Complaint: Headache ED Provider: David Felipe Dx/Rx/DC Orders Clinical Impression: Cephalgia, Morbid obesity, Hypertension, Below-knee amputation of both lower extremities Instructions: ED Headache Unspecified Prescriptions: No Action albuterol sulfate 90 mcg/actuation HFA aerosol inhaler 2 puff inhalation Q6H PRN (Reason: shortness of breath or wheezing) Qty: 8.5 6RF Rx Instructions: administer with spacer metformin 850 mg tablet 850 mg PO BID sertraline 50 mg tablet 50 mg PO DAILY ondansetron 4 mg tablet,disintegrating 4 mg PO Q6H PRN (Reason: nausea and vomiting) potassium chloride 20 mEq tablet extended release 20 meq PO BID valsartan 320 mg tablet 320 mg PO DAILY pramipexole 1.5 mg tablet 3 mg PO QHS amitriptyline 100 mg tablet 100 mg PO QHS cholecalciferol (vitamin D3) 1,250 mcg (50,000 unit) capsule 1,250 mcg PO MO metoprolol succinate 50 mg tablet extended release 24 hr 50 mg PO DAILY montelukast 10 mg Tablet 10 mg PO DAILY albuterol sulfate 2.5 mg /3 mL (0.083 %) solution for nebulization 1.25 mg inhalation Q4H PRN (Reason: sob/wheezing) atorvastatin 10 mg tablet 10 mg PO QHS docusate sodium [Colace] 100 mg capsule 100 mg PO DAILY fluticasone propion-salmeterol [Advair Diskus] 250-50 mcg/dose blister with device 1 inh inhalation BID gabapentin 300 mg capsule 300 mg PO DAILY loratadine [Allergy Relief (loratadine)] 10 mg tablet 10 mg PO DAILY melatonin 5 mg tablet 5 mg PO QHS multivitamin [Daily Multi-Vitamin] Tablet 1 tab PO DAILY acetaminophen [Acetaminophen Extra Strength] 500 mg tablet 1,000 mg PO Q8H PRN (Reason: pain) hydroxyzine pamoate [Vistaril] 25 mg capsule 25 mg PO Q6H PRN (Reason: anxiety) buprenorphine HCl [Belbuca] 300 mcg film 300 mcg BUCCAL BID diphenhydramine HCl [Benadryl Allergy] 25 mg tablet 25 mg PO Q4H PRN (Reason: allergic reaction) Biotene Dry Mouth Oral Rinse Mouthwash 15 ml mucous membrane DAILY bisacodyl 10 mg suppository 10 mg [place] QHS PRN (Reason: constipation) Rx Instructions: USE NEEDED IF NO BM 8 HOURS AFTER MOM ADMINISTRATION mineral oil [Fleet Mineral Oil] Enema 118 ml W[place] DAILY PRN (Reason: constipation) Rx Instructions: ADMINISTER ONCE DAILY IF NO BM 8 HOURS AFTER RECEIVING SUPPOSITORY. IF NO BM WITHIN 1 HOUR AFTER RECEIVING ENEMA NOTIFY MD. gabapentin 300 mg capsule 600 mg PO QHS Patient Comments: TAKE 1 CAPSULE IN AM, 2 CAPSULES AT BEDTIME. ibuprofen [Advil] 200 mg tablet 400 mg PO Q12H PRN (Reason: pain) lidocaine [DermacinRx Lidocan] 5 % adhesive patch,medicated 1 patch topical QHS Rx Instructions: APPLY TO THE LEFT SHOULDER AT BEDTIME. REMOVE AFTER 12 HOURS. magnesium hydroxide [Dulcolax (magnesium hydroxide)] 400 mg/5 mL suspension 2,400 mg PO DAILY PRN (Reason: constipation) Rx Instructions: GIVE ONCE DAILY PER BOWEL PROTOCOL. ADMINISTER IF NO BM IN 3 CONSECUTIVE DAYS polyethylene glycol 3350 [ClearLax] 17 gram/dose powder 17 g PO DAILY PRN (Reason: constipation) guaifenesin [Mucinex] 600 mg tablet extended release 12hr 600 mg PO BID PRN (Reason: congestion) guaifenesin [Adult Tussin Chest Congestion] 100 mg/5 mL liquid 100 mg PO Q6H PRN (Reason: cough) ropinirole 0.25 mg tablet 0.25 mg PO TID dexamethasone 6 mg tablet 6 mg PO DAILY Qty: 4 0RF Rx Instructions: start 05/17 Primary Care Provider: Matt Penn Referrals: Matt Penn MD [Primary Care Provider] - Activity Restrictions/Additional Instructions: Your head CT revealed no sign of brain bleed or mass. The visualized sinuses did not reveal any thickening or fluid going against sinus infection. Based on the location of your headache I do feel that sinus inflammation plays a part and therefore please continue nasal decongestants to help with this. Follow-up with your family doctor for repeat evaluation and return to the ER should you have any further concerns Print Language: Pashto Disposition Disposition: Home, Self Care Discharge Date/Time: 06/11/25 03:28
[2025-06-11 02:31] VITALS: BP 120/62; PULSE 81; RESP 16; TEMP 36.6; O2SAT 96
--- NOTE | 2025-06-11 02:32 | ED.RN ---
cruz called and updated on her care and arrival time for the ambulance.
== END 2025-06-11 03:28 | disposition home or self-care (01) ==
PROVIDERS: Emergency Provider Emergency Medicine; PCP Family Medicine; Visit Provider Emergency Medicine
DX: R51.9 Headache, unspecified (principal); Z89.511 Acquired absence of right leg below knee; Z89.512 Acquired absence of left leg below knee; J44.9 Chronic obstructive pulmonary disease, unspecified; E66.01 Morbid (severe) obesity due to excess calories; E11.9 Type 2 diabetes mellitus without complications; I10 Essential (primary) hypertension; Z90.710 Acquired absence of both cervix and uterus; Z86.711 Personal history of pulmonary embolism; Z87.891 Personal history of nicotine dependence; Z86.718 Personal history of other venous thrombosis and embolism; Z86.16 Personal history of COVID-19
CPT/HCPCS: 70450; 96361; 96374; 96375; 99283; A4216; J2405